=== PATIENT | female | born 1940 | race Caucasian/White ===

== ENCOUNTER 2018-02-18 13:26 | Emergency (ER) | payer OTHER ==
--- OUTSIDE RECORDS SUMMARY | 2018-02-18 13:32 | XMS REPORT | Continuity of Care Document ---
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 CERVICAL Active [facility] RADICULITIS, [address] [place] [address] CERVICAL DISC [facility] Diabetes mellitus Resolved Problem 03/21/2013 PHYLLIS Butler,[facility] GERD - Resolved Problem 03/21/2013 PHYLLIS Gastro-esophageal Luke, reflux disease [facility] HLD - Hyperlipidemia Resolved Problem 03/21/2013 PHYLLIS Butler,[facility] HTN - Hypertension Resolved Problem 03/21/2013 [facility] Neuropathy Resolved Problem 03/21/2013 [facility] Diabetes mellitus Active Problem 02/17[facility]2016 [facility] [place] [facility] 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 [facility] GERD - Active Problem 02/17/2016 OPID Gastro-esophageal Luke reflux disease [facility] HLD - Hyperlipidemia Active Problem 02/17/2016 [facility] [place] HTN - Hypertension Active Problem 02/17/2016 [facility] [place] [facility] Low back pain Active Problem 02/17/2016 [facility] Lumbar radiculopathy Active Problem 02/17/2016 [facility] Lumbar spondylosis Active Problem 02/17/2016 [facility] Neuropathy Active Problem 02/17/2016 [facility] [place] Obesity Active Problem 02/17/2016 [facility] Lumbar stenosis Active Problem 02/17/2016 [facility] Spondylolisthesis of Active Problem 02/17/2016 lumbar region [facility] Disc disorder of Active Problem 02/17/2016 lumbar region [facility] 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 [facility] canal [facility] BRACHIAL NEURITIS Active [facility] CERV DISC DIS W Active [facility] ILLNESS, UNSPECIFIED Active [facility] Medications Medication Details Route Status Patient Ordering Order Source Instructions Provider Date Lipitor 5 mg, 0.5 tab, No Longer Route: PO, Drug Active 2015 [facility] form: TAB, [facility] QTue, Start date: 02/15/16 21:00:00 CDT, Duration: 30 day, Stop date: 03/14/16 21:00:00 CDTNotes: (Same As: Lipitor) Acetaminophen 325 1 tab, PO, Q6H, Active MG / Hydrocodone PRN pain, # 90 2015 [facility] Bitartrate 10 MG tab, 0 [facility] Oral Tablet [[place] Refill(s), ] given to patient morphine 15 mg 15 mg=1 tab, Active oral tablet, PO, Q12H, # 60 2015 [facility] extended release tab, 0 [facility] Refill(s), given to patient bisacodyl 5 mg 5 mg=1 tab, PO, Active oral enteric TID, PRN [address] [place] [address] coated tablet Constipation, 0 [facility] Refill(s) baclofen 10 mg 5 mg=0.5 tab, Active oral tablet PO, TID, PRN as 2015 [facility] needed for [facility] muscle spasm, # 45 tab, 0 Refill(s) MS Contin 15 mg, 1 tab, No Longer Route: PO, Drug Active 2015 [facility] form: ERTAB, [facility] Q12H, Dosing Weight 89.091, kg, Start date: 02/12/16 21:00:00 CDT, Duration: 30 day, Stop date: 03/13/16 9:00:00 CDTNotes: Do not crush (Same as:Oramorph SR, MS Contin) Lipitor 5 mg, 0.5 tab, No Longer Route: PO, Drug Active 2015 [facility] form: TAB, [facility] QFri, Start date: 02/11/16 21:00:00 CDT, Duration: 30 day, Stop date: 03/10/16 21:00:00 CDTNotes: (Same As: Lipitor) Tylenol 650 mg, 2 tab, No Longer Route: PO, Drug Active 2015 [facility] form: TAB, Q6H, [facility] Dosing Weight 89.091, kg, Start date: 02/11/16 18:00:00 CDT, Duration: 10 day, Stop date: 02/21/16 12:00:00 CDTNotes: Do not exceed 4 gm/day. (Same as: Tylenol) Bisacodyl 5 mg, 1 tab, No Longer Route: PO, Drug Active 2015 [facility] form: ECTAB, [facility] TID, Dosing Weight 89.091, kg, PRN Constipation, Start date: 02/11/16 17:47:00 CDT, Duration: 30 day, Stop date: 03/12/16 17:46:00 CDTNotes: (Same As: Dulcolax, Correctol) (Do Not Crush) "Do Not Crush" Docusate 100 mg, 1 cap, No Longer Route: PO, Drug Active 2015 [facility] form: CAP, TID, [facility] Dosing Weight 89.091, kg, Start date: 02/11/16 17:00:00 CDT, Duration: 30 day, Stop date: 03/12/16 13:00:00 CDTNotes: (Same as: Colace) (Do Not Crush) Simethicone 80 mg, 1 tab, No Longer Route: CHEW, Active 2015 [facility] Drug form: [facility] CHEWTAB, QID, Dosing Weight 89.091, kg, PRN Gas, Start date: 02/11/16 16:04:00 CDT, Duration: 30 day, Stop date: 03/12/16 16:03:00 CDTNotes: (Same as: Mylicon) Bisacodyl 10 mg, 1 supp, No Longer Route: OR, Drug Active 2015 [facility] form: SUPP, [facility] Daily, Dosing Weight 89.091, kg, PRN Constipation, Start date: 02/11/16 16:04:00 CDT, Duration: 30 day, Stop date: 03/12/16 16:03:00 CDTNotes: (Same As: Dulcolax, Bisco-Lax) Baclofen 5 mg, 0.5 tab, No Longer Route: PO, Drug [facility] 2015 [facility] form: TAB, TID, [facility] Dosing Weight 89.091, kg, Start date: 02/11/16 9:00:00 CDT, Duration: 30 day, Stop date: 03/11/16 17:00:00 CDTNotes: (Same As: Lioresal) Dilaudid 0.2 mg, 0.1 mL, No Longer Route: IVP, [facility] 2015 [facility] Drug form: INJ, [facility] Q2H, Dosing Weight 89.091, kg, PRN Pain Score 7-10, Start date: 02/10/16 17:54:00 CDT, Duration: 30 day, Stop date: 03/11/16 17:53:00 CDTNotes: (Same as: Dilaudid) Acetaminophen 325 1 tab, Route: No Longer MG / Hydrocodone PO, Drug Form: [facility] 2015 [facility] Bitartrate 5 MG TAB, Dosing [facility] Oral Tablet [[place] Weight 89.091, 5/325] kg, Q4H, PRN Pain Score 1-3, Start date: 02/10/16 17:52:00 CDT, Duration: 30 day, Stop date: 03/11/16 17:51:00 CDTNotes: (Same as: [place] 325/5) Do not exceed 4gm/day of acetaminophen. marta bonnienta, 5 No Longer mg, 1 tab, Drug [facility] 2015 [facility] form: MISC, [facility] Route: PO, Daily, 02/09/16 15:00:00 CDT, Duration: 30 day, Stop date: 03/10/16 9:00:00 CDT Rosuvastatin 2.5 mg, PO, Active calcium 5 MG Oral Bedtime, # 30 2015 [facility] Tablet [Crestor] tab, 0 City Refill(s) Sodium Chloride 25 mL, Route: No Longer 0.9% IV IV, Start date: [facility] 2015 [facility] 02/09/16 [facility] 10:15:00 CDT, Duration: 30 day, Stop date: 03/10/16 10:14:00 CDT, PRN Line Flush BD Normal Saline 10 mL, Route: No Longer Flush IV, Drug Form: [address] INJ, PRN, PRN [facility] Line Flush, Start date: 02/09/16 10:15:00 CDT, Duration: 30 day, Stop date: 03/10/16 10:14:00 CDTNotes: (Same as: BD Posiflush) Spironolactone 25 mg, 1 tab, No Longer Route: PO, Drug Active 2015 [facility] form: TAB, [facility] Daily, Dosing Weight 89.545, kg, Start date: 02/09/16 9:00:00 CDT, Duration: 30 day, Stop date: 03/09/16 9:00:00 CDTNotes: (Same As: Aldactone) irbesartan 300 mg, 2 tab, No Longer Route: PO, Drug Active [address] [place] [address] form: [facility] Daily, Dosing Weight 89.545, kg, Start date: 02/09/16 9:00:00 CDT, Duration: 30 day, Stop date: 03/09/16 9:00:00 CDTNotes: (Same as:Avapro) Tradjenta 5 mg, Route: Inactive PO, Drug form: [address] [place] [address] TAB, Daily, [facility] Dosing Weight 89.545, kg, Start date: 02/09/16 9:00:00 CDT Furosemide 20 MG 20 mg, 1 tab, No Longer Oral Tablet Route: PO, Drug Active [address] [place] [address] form: [facility], [facility] Daily, Dosing Weight 89.545, kg, Start date: 02/09/16 9:00:00 CDT, Duration: 30 day, Stop date: 03/09/16 9:00:00 CDTNotes: (Same as: Lasix) May cause GI upset. Give with food or milk. Vitamin D3 2,000 IntlUnit, No Longer 2 tab, Route: Active 2015 [facility] PO, Drug form: [facility] TAB, Daily, Dosing Weight 89.545, kg, Start date: 02/09/16 9:00:00 CDT, Duration: 30 day, Stop date: 03/09/16 9:00:00 CDTNotes: Same as : Vitamin D3 Amlodipine 10 mg, 2 tab, No Longer Route: PO, Drug [facility] 2015 [facility] form: TAB, [facility] Daily, Dosing Weight 89.545, kg, Start date: 02/09/16 9:00:00 CDT, Duration: 30 day, Stop date: 03/09/16 9:00:00 CDTNotes: (Same as: Norvasc) Miralax 17 gm, 1 pkt, No Longer Route: PO, Drug Active 2015 [facility] form: PWDR, [facility] Daily, Dosing Weight 89.545, kg, Start date: 02/09/16 9:00:00 CDT, Duration: 30 day, Stop date: 03/09/16 9:00:00 CDTNotes: Dissolve in 8 oz of water or juice. (Same as: Miralax) Insulin, Aspart, 1 unit, 0.01 No Longer Human mL, Route: [facility] 2015 [facility] SUB-Q, Drug [facility] form: SOLN, Bedtime, Dosing Weight 89.545, kg, PRN Blood Glucose Results, Start date: 02/09/16 1:52:00 CDT, Duration: 30 day, Stop date: 03/10/16 1:51:00 CDTNotes: Roll in palms of hands gently; Do not shake vigorously. (Same as: NovoLOG) "single patient use only" WASTE: F/P - Black; E - Municipal Trash Bin Stable for 28 days at room temperature. Expires in days from D ate Glucagon 1 mg, Route: No Longer IM, Drug form: [address] PDR/INJ, PRN, [facility] Dosing Weight 89.545, kg, PRN Blood Glucose Results, Start date: 02/09/16 1:52:00 CDT, Duration: 30 day, Stop date: 03/10/16 1:51:00 CDT Dextrose 50% 25 gm, 50 mL, No Longer Syringe Route: IVP, [address] Drug Form: INJ, [facility] Dosing Weight 89.545, kg, PRN, PRN Blood Glucose Results, Start date: 02/09/16 1:52:00 CDT, Duration: 30 day, Stop date: 03/10/16 1:51:00 CDT Crestor Route: PO, Drug No Longer form: TAB, Active 2015 [facility] Bedtime, Dosing [facility] Weight 89.545, kg, Start date: 02/08/16 21:00:00 CDT, Duration: 30 day, Stop date: 03/08/16 21:00:00 CDT Insulin Glargine 40 unit, 0.4 No Longer 100 UNT/ML mL, Route: Active 2015 [facility] Injectable SUB-Q, Drug [facility] Solution [Lantus] form: INJ, Bedtime, Dosing Weight 89.545, kg, Start date: 02/08/16 21:00:00 CDT, Duration: 30 day, Stop date: 03/08/16 21:00:00 CDTNotes: Same as Lantus Solostar PEN Do not hold insulin without contacting prescriber "single patient use only" WASTE: F/P - Black; E - [employer] Trash Bin Stable for 28 days at room temperature. Expires in days from D ate carvedilol 12.5 mg, 1 tab, No Longer Route: PO, Drug Active 2015 [facility] form: TAB, [place] Q12H, Dosing Weight 89.545, kg, Start date: 02/08/16 21:00:00 CDT, Duration: 30 day, Stop date: 03/09/16 9:00:00 CDTNotes: Give with food. (Same As: Coreg) Docusate Sodium 100 mg=1 cap, Active 100 MG Oral PO, BID, 0 2015 [facility] Capsule [Colace] Refill(s) [facility] Linagliptin 5 MG 5 mg=1 tab, PO, No Longer Oral Tablet Daily, 0 Active 2015 [facility] [Tradjenta] Refill(s) [facility] 3 ML Insulin 50 units, Active Glargine 100 SUB-Q, Bedtime, 2015 [facility] UNT/ML Prefilled 0 Refill(s) [facility] Syringe [Lantus] glimepiride 4 mg, PO, Active Daily, 0 2015 [facility] Refill(s) [facility] Clonidine 0.1 mg=1 tab, No Longer Hydrochloride 0.1 PO, PRN Active 2015 [facility] MG Oral Tablet Hypertension, 0 [facility] Refill(s) Ancef + sodium 1 gm, Route: No Longer chloride 0.9% INJ IVPB, Q8H, Active 2015 [facility] 100 mL Dosing Weight [facility] 89.545, kg, Start date: 02/08/16 18:00:00 CDT, Duration: 30 day, Stop date: 03/09/16 10:00:00 CDTNotes: (Same As: Dav Siufzol) MEDICATION WASTE Product Size: 1000 mg Product Wasted: ___ mg Docusate Sodium 100 mg, 1 cap, No Longer 100 MG Oral Route: PO, Drug Active 2015 [facility] Capsule [Colace] form: CAP, BID, [facility] Dosing Weight 89.545, kg, Start date: 02/08/16 17:00:00 CDT, Duration: 30 day, Stop date: 03/09/16 9:00:00 CDTNotes: (Same as: Colace) (Do Not Crush) Ofirmev 1,000 mg, Inactive Route: IV, 2015 [facility] ONCE, Dosing [facility] Weight 89, kg, Start date: 02/08/16 14:25:00 CDT, Stop date: 02/08/16 14:25:00 CDT Ondansetron 4 mg, 2 mL, Inactive Route: IVP2015 [facility] Drug form: INJ, [place] ONCE, Dosing Weight 89.545, kg, PRN Nausea & Vomiting, Start date: 02/08/16 13:22:00 CDTNotes: (Same as: Zofran) MEDICATION WASTE Product Size: 4 mg Product Wasted: ___ mg Flumazenil 0.2 mg, 2 mL, Inactive Route: IVP, 2015 [facility] Drug form: INJ, [place] PRN, Dosing Weight 89.545, kg, PRN Benzodiazepine Reversal, Initial dose, Start date: 02/08/16 13:22:00 CDT, Duration: 30 day, Stop date: 03/09/16 13:21:00 CDTNotes: (Same as: Romazicon) Naloxone 0.4 mg, 1 mL, Inactive Route: IVP, 2015 [facility] Drug form: INJ, [place] Q2MIN, Dosing Weight 89.545, kg, PRN Narcotic Reversal, Start date: 02/08/16 13:22:00 CDT, Duration: 8 doses or times, Stop date: Limited # of timesNotes: Same as Narcan Morphine 2 mg, 0.2 mL, Inactive Route: IVP, 2015 [facility] Drug form: INJ, [place] Q5Min, Dosing Weight 89.545, kg, PRN Pain Score 4-6, Start date: 02/08/16 13:22:00 CDT, Duration: 5 doses or times, Stop date: Limited # of timesNotes: (Same as:MORPhine Sulfate) Sodium Chloride 1,000 mL, Rate: Inactive 0.154 MEQ/ML 125 ml/hr, 2015 [facility] Injectable Infuse over: 8 City Solution hr, Route: IV, Dosing Weight 89.545 kg, Total Volume: 1,000, Start date: 02/08/16 13:22:00 CDT, Duration: 30 day, Stop date: 03/09/16 13:21:00 CDT Morphine 30 mg, 30 mL, No Longer Route: IV, Active 2015 [facility] Initial Loading [facility] Dose: 2 mg, BAR CAPTAIN Dose: 1 mg, BAR CAPTAIN Lockout: 10 minutes, Continuous Basal Rate: 0 mg, 4 Hour Limit (In MG): 30, Drug Form: INJ, Continuous, Start date: 02/08/16 13:00:00 CDT, Duration: 30 day, Stop date: 03/09/16...Note s: Dose: Delay: Basal rate: 4hr limit: (Same as:Abby) Naloxone 0.04 mg, 0.1 No Longer mL, Route: IVP, Active 2015 [facility] Drug form: INJ, [place] Q2MIN, Dosing Weight 89.545, kg, PRN Narcotic Reversal, Start date: 02/08/16 12:53:00 CDT, Duration: 30 day, Stop date: 03/09/16 12:52:00 CDTNotes: Same as Narcan Acetaminophen 325 1 tab, Route: No Longer MG / Hydrocodone PO, Drug Form: [address] Bitartrate 10 MG TAB, Dosing [facility] Oral Tablet [[place] Weight 89.545, 10/325] kg, Q4H, PRN Pain Score 4-6, Start date: 02/08/16 12:53:00 CDT, Duration: 30 day, Stop date: 03/09/16 12:52:00 CDTNotes: Do not exceed 4gm/day of acetaminophen. (Same as: [place] 325/10) Zofran 4 mg, 2 mL, No Longer Route: IV, Drug [address] form: INJ, Q6H, [facility] Dosing Weight 89.545, kg, PRN Nausea, Start date: 02/08/16 12:53:00 CDT, Duration: 30 day, Stop date: 03/09/16 12:52:00 CDTNotes: (Same as: Zofran) MEDICATION WASTE Product Size: 4 mg Product Wasted: ___ mg Robaxin 750 mg, 7.5 mL, No Longer Route: IV, Q6H, [address] Dosing Weight [facility] 89.545, kg, PRN Muscle Spasms, Start date: 02/08/16 12:52:00 CDT, Duration: 30 day, Stop date: 03/09/16 12:51:00 CDTNotes: (Same as:Robaxin) Lactated Ringers 1,000 mL, Rate: No Longer 1,000 mL 75 ml/hr, [address] Infuse over: [facility] 13.3 hr, Route: IV, Dosing Weight 89.545 kg, Total Volume: 1,000, Start date: 02/08/16 12:52:00 CDT, Duration: 30 day, Stop date: 03/09/16 12:51:00 CDT Flexeril 10 mg, 1 tab, No Longer Route: PO, Drug [address] form: TAB, TID, [facility] Dosing Weight 89.545, kg, PRN Spasm, Start date: 02/08/16 12:52:00 CDT, Duration: 30 day, Stop date: 03/09/16 12:51:00 CDTNotes: (Same As: Flexeril) Diphenhydramine 25 mg, 1 cap, No Longer Route: PO, Drug [facility] 2015 [facility] form: CAP, TID, [facility] Dosing Weight 89.545, kg, PRN Itching, Start date: 02/08/16 12:52:00 CDT, Duration: 30 day, Stop date: 03/09/16 12:51:00 CDTNotes: (Same as: Benadryl) phenol 1 spray, Route: No Longer TOP, Q2H, Drug Active 2015 [facility] form: SPRY, PRN [facility] Sore Throat, Start date: 02/08/16 12:52:00 CDT, Duration: 30 day, Stop date: 03/09/16 12:51:00 CDTNotes: Chloraseptic [place] (Same as: Chloraseptic, Sore Throat [place]) WASTE: F/P - Black; E - Municipal Trash Bin ceFAZolin 2 gm, 100 mL, No Longer Route: IVPB, [facility] 2015 [facility] Drug form: INJ, [facility] ONCALL, Start date: 02/07/16 22:00:00 CDT, Duration: 22 hr, Stop date: 02/08/16 19:59:00 CDTNotes: Same as: Anc carvedilol 12.5 mg 12.5 mg=1 tab, Active oral tablet PO, Q12H, 0 2015 [facility] Refill(s) [facility] Acetaminophen 325 1 tab, Route: No Longer MG / Hydrocodone PO, Drug Form: [facility] 2015 [facility] Bitartrate 7.5 MG TAB, Dosing [facility] Oral Tablet [[place] Weight 97.983, 7.5/325] kg, Q4H, PRN Pain Score 4-6, Start date: 01/18/16 9:32:00 CDT, Duration: 30 day, Stop date: 02/17/16 9:31:00 CDTNotes: Same as [place] 325-7.5mg Do not exceed 4gm/day of acetaminophen. sodium phosphate + 15 mmol, 5 mL, No Longer sodium chloride Route: IVPB, [facility] 2015 [facility] 0.9% INJ 250 mL PRN, Dosing [facility] Weight 97.983, kg, PRN Abnormal Lab Result, Start date: 01/17/16 16:42:00 CDT, Stop date: 02/16/16 16:41:00 CDT heparin sodium, 5,000 unit, 1 No Longer porcine 2500 mL, Route: Active 2015 [facility] UNT/ML Injectable SUB-Q, Drug [facility] Solution form: INJ, Q12H, Dosing Weight 97.983, kg, Start date: 01/15/16 21:00:00 CDT, Duration: 30 day, Stop date: 02/14/16 9:00:00 CDTNotes: porcine heparin gabapentin 300 MG 300 mg, 1 cap, No Longer Oral Capsule Route: PO, Drug Active 2015 [facility] form: CAP, TID, [facility] Dosing Weight 97.983, kg, PRN Pain Score 1-5, Start date: 01/15/16 19:22:00 CDT, Duration: 30 day, Stop date: 02/14/16 19:21:00 CDTNotes: (Same as: Neurontin) Insulin, Aspart, 7 unit, 0.07 No Longer Human mL, Route: Active 2015 [facility] SUB-Q, Drug [facility] form: SOLN, TID-Before Meals, Dosing Weight 97.983, kg, Start date: 01/14/16 16:30:00 CDT, Stop date: 02/13/16 11:30:00 CDTNotes: Roll in palms of hands gently; Do not shake vigorously. (Same as: NovoLOG) "single patient use only" WASTE: F/P - Black; E - Municipal Trash Bin Stable for 28 days at room temperature. Expires in days from D ate Hydralazine 5 mg, 0.25 mL, No Longer Route: IV, Drug Active [address] [place] [address] form: INJ, Q6H, [facility] Dosing Weight 97.983, kg, PRN Other -See Comment, Start date: 01/14/16 14:44:00 CDT, Duration: 30 day, Stop date: 02/13/16 14:43:00 CDT, SBP>170Notes: (Same as: Apresoline) Push over 5 minutes Ativan 1 mg, 0.5 mL, Inactive Route: IVP, [address] [place] [address] Drug form: INJ, [place] ONCE, Dosing Weight 97.983, kg, PRN Procedure, prior to MRI, Start date: 01/13/16 15:06:00 CDTNotes: (Same as: Ativan) Acetaminophen 325 1 tab, Route: No Longer MG / Hydrocodone PO, Drug Form: Active 2015 [facility] Bitartrate 10 MG TAB, Dosing [facility] Oral Tablet [[place] Weight 97.983, 10/325] kg, Q4H, Start date: 01/13/16 15:05:00 CDT, Stop date: 02/12/16 16:00:00 CDT Miralax 17 gm, 1 pkt, No Longer Route: PO, Drug Active 2015 [facility] form: PWDR, [facility] Daily, Dosing Weight 97.983, kg, PRN Constipation, Start date: 01/13/16 9:11:00 CDT, Duration: 30 day, Stop date: 02/12/16 9:10:00 CDTNotes: Dissolve in 8 oz of water or juice. (Same as: Miralax) Lorazepam 0.5 mg, Route: Inactive IVP, Drug form: [address] [place] [address] INJ, ONCE, [facility] Dosing Weight 97.983, kg, PRN Anxiety, Priority: NOW, Start date: 01/12/16 10:44:00 CDT Tradjenta 5 mg, Route: Inactive PO, Drug form: 2015 [facility] TAB, Daily, [facility] Dosing Weight 97.983, kg, Start date: 01/12/16 9:00:00 CDT irbesartan 300 mg, 2 tab, No Longer Route: PO, Drug Active [address] [place] [address] form: TAB, [place] Daily, Dosing Weight 97.983, kg, Start date: 01/12/16 9:00:00 CDT, Duration: 30 day, Stop date: 02/10/16 9:00:00 CDTNotes: (Same as:Avapro) Furosemide 20 MG 20 mg, 1 tab, No Longer Oral Tablet Route: PO, Drug Active [address] [place] [address] form: TAB, [place] Daily, Dosing Weight 97.983, kg, Start date: 01/12/16 9:00:00 CDT, Duration: 30 day, Stop date: 02/10/16 9:00:00 CDTNotes: (Same as: Lasix) May cause GI upset. Give with food or milk. glimepiride 8 mg, 4 tab, No Longer Route: PO, Drug Active 2015 [facility] form: TAB, [facility] Daily, Dosing Weight 97.983, kg, Start date: 01/12/16 9:00:00 CDT, Duration: 30 day, Stop date: 02/10/16 9:00:00 CDTNotes: (Same as: Amaryl) Tradjenta 5 mg Tradjenta 5 mg No Longer (Patient's own (Patient's own Active 2015 [facility] medicine) medicine), 1 City tab, Drug form: MISC, Route: PO, Daily, 01/12/16 9:00:00 CDT, Duration: 30 day, Stop date: 02/10/16 9:00:00 CDT Aspirin 81 MG 81 mg, 1 tab, No Longer Enteric Coated Route: PO, Drug Active 2015 [facility] Tablet form: ECTAB, [facility] Daily, Dosing Weight 97.983, kg, Start date: 01/12/16 9:00:00 CDT, Duration: 30 day, Stop date: 02/10/16 9:00:00 CDTNotes: Do not crush or chew. (Same As: Ecotrin) Amlodipine 10 mg, 2 tab, No Longer Route: PO, Drug Active 2015 [facility] form: TAB, [facility] Daily, Dosing Weight 97.983, kg, Start date: 01/12/16 9:00:00 CDT, Duration: 30 day, Stop date: 02/10/16 9:00:00 CDTNotes: (Same as: Norvasc) Docusate 100 mg, 1 cap, No Longer Route: PO, Drug Active 2015 [facility] form: CAP, BID, [facility] Dosing Weight 97.983, kg, Start date: 01/12/16 9:00:00 CDT, Duration: 30 day, Stop date: 02/10/16 17:00:00 CDTNotes: (Same as: Colace) (Do Not Crush) Spironolactone 25 mg, 1 tab, No Longer Route: PO, Drug Active 2015 [facility] form: TAB, [place] Daily, Dosing Weight 97.983, kg, Start date: 01/12/16 9:00:00 CDT, Duration: 30 day, Stop date: 02/10/16 9:00:00 CDTNotes: (Same As: Aldactone) Ativan 1 mg, 0.5 mL, Inactive Route: IVP, 2015 [facility] Drug form: INJ, [place] ONCE, Dosing Weight 97.983, kg, PRN Procedure, Start date: 01/12/16 8:54:00 CDTNotes: (Same as: Ativan) Sodium Chloride 25 mL, Route: No Longer 0.9% IV IV, Start date: Active 2015 [facility] 01/12/16 [facility] 8:19:00 CDT, Duration: 30 day, Stop date: 02/11/16 8:18:00 CDT, PRN Line Flush BD Normal Saline 10 mL, Route: No Longer Flush IV, Drug Form: [facility] 2015 [facility] INJ, PRN, PRN [facility] Line Flush, Start date: 01/12/16 8:19:00 CDT, Duration: 30 day, Stop date: 02/11/16 8:18:00 CDTNotes: (Same as: BD Posiflush) Insulin, Aspart, 4 unit, 0.04 No Longer Human mL, Route: Active 2015 [facility] SUB-Q, Drug [facility] form: SOLN, Bedtime, Dosing Weight 97.983, kg, PRN Blood Glucose Results, Start date: 01/11/16 22:38:00 CDT, Duration: 30 day, Stop date: 02/10/16 22:37:00 CDTNotes: Roll in palms of hands gently; Do not shake vigorously. (Same as: NovoLOG) "single patient use only" WASTE: F/P - Black; E - Municipal Trash Bin Stable for 28 days at room temperature. Expires in days from D ate Dextrose 50% 12.5 gm, 25 mL, No Longer Syringe Route: IVP, Active 2015 [facility] Drug Form: INJ, [facility] Dosing Weight 97.983, kg, PRN, PRN Blood Glucose Results, Start date: 01/11/16 22:38:00 CDT, Duration: 30 day, Stop date: 02/10/16 22:37:00 CDT Glucagon 1 mg, Route: No Longer IM, Drug form: [facility] 2015 [facility] PDR/INJ, PRN, [facility] Dosing Weight 97.983, kg, PRN Blood Glucose Results, Start date: 01/11/16 22:38:00 CDT, Duration: 30 day, Stop date: 02/10/16 22:37:00 CDT Lipitor 10 mg, 1 tab, No Longer Route: PO, Drug Active 2015 [facility] form: TAB, [facility] Bedtime, Start date: 01/11/16 21:38:00 CDT, Duration: 30 day, Stop date: 02/10/16 21:00:00 CDTNotes: (Same As: Lipitor) Lantus 45 unit, 0.45 No Longer mL, Route: Active 2015 [facility] SUB-Q, Drug [facility] form: INJ, Bedtime, Dosing Weight 97.983, kg, Start date: 01/11/16 21:00:00 CDT, Stop date: 02/09/16 21:00:00 CDTNotes: Same as Lantus Solostar PEN Do not hold insulin without contacting prescriber "single patient use only" WASTE: F/P - Black; E - Municipal Trash Bin Stable for 28 days at room temperature. Expires in days from D ate carvedilol 12.5 mg, 1 tab, No Longer Route: PO, Drug Active 2015 [facility] form: TAB, [facility] Q12H, Dosing Weight 97.983, kg, Start date: 01/11/16 21:00:00 CDT, Stop date: 02/10/16 9:00:00 CDTNotes: Give with food. (Same As: Coreg) Crestor Route: PO, Drug Inactive form: TAB, 2015 [facility] Bedtime, Dosing City Weight 97.983, kg, Start date: 01/11/16 21:00:00 CDT, Duration: 30 day, Stop date: 02/09/16 21:00:00 CDT Acetaminophen 325 1 tab, Route: No Longer MG / Hydrocodone PO, Drug Form: Active [address] [place] [address] Bitartrate 10 MG TAB, Dosing [facility] Oral Tablet [[place] Weight 97.983, 10/325] kg, Q6H, Start date: 01/11/16 18:00:00 CDT, Stop date: 02/10/16 12:00:00 CDTNotes: Do not exceed 4gm/day of acetaminophen. (Same as: [place] 325/10) Enoxaparin 40 mg, 0.4 mL, No Longer Route: SUB-Q, [address] Drug form: INJ, [facility] [id number], Dosing Weight 97.983, kg, Start date: 01/11/16 18:00:00 CDT, Duration: 30 day, Stop date: 02/09/16 18:00:00 CDTNotes: (Same as: Lovenox) Clonidine 0.1 mg, 1 tab, No Longer Hydrochloride 0.1 Route: PO, Drug Active [address] [place] [address] MG Oral Tablet form: TAB, QID, [facility] Dosing Weight 97.983, kg, PRN Hypertension, sbp>170, Start date: 01/11/16 17:56:00 CDT, Duration: 30 day, Stop date: 02/10/16 17:55:00 CDTNotes: (Same As: Catapres) Sodium Chloride 1,000 mL, Rate: No Longer 0.154 MEQ/ML 45 ml/hr, Active 2015 [facility] Injectable Infuse over: [facility] Solution 22.2 hr, Route: IV, Dosing Weight 97.983 kg, Total Volume: 1,000, Start date: 01/11/16 17:53:00 CDT, Duration: 30 day, Stop date: 02/10/16 17:52:00 CDT Saline Flush 0.9% 10 ml, Route: No Longer IVP, Drug Form: Ori [address] [place] [address] INJ, Dosing [facility] Weight 97.983, kg, PRN, PRN Line Flush, Start date: 01/11/16 17:53:00 CDT, Duration: 30 day, Stop date: 02/10/16 17:52:00 CDTNotes: (Same as: BD Posiflush) Morphine 2 mg, 1 mL, No Longer Route: IVP, Active 2015 [facility] Drug form: INJ, City Q4H, Dosing Weight 97.983, kg, PRN Pain Score 7-10, Start date: 01/11/16 17:53:00 CDT, Duration: 30 day, Stop date: 02/10/16 17:52:00 CDTNotes: (Same as:MORPhine Sulfate) Ondansetron 4 mg, 2 mL, No Longer Route: IVP, Active 2015 [facility] Drug form: INJ, City Q6H, Dosing Weight 97.983, kg, PRN Nausea & Vomiting, Start date: 01/11/16 17:53:00 CDT, Duration: 30 day, Stop date: 02/10/16 17:52:00 CDTNotes: (Same as: Rachel) MEDICATION WASTE Product Size: 4 mg Product Wasted: ___ mg Acetaminophen 650 mg, Route: Inactive PO, Drug form: 2015 [facility] TAB, Q4H, [facility] Dosing Weight 97.983, kg, PRN Pain 1-3/Temp > 100.4 F, Start date: 01/11/16 17:53:00 CDT, Duration: 30 day, Stop date: 02/10/16 17:52:00 CDT irbesartan 300 mg 300 mg=1 tab, Active oral tablet PO, Daily, # 30 2015 [facility] tab, 0 [facility] Refill(s) Co Q-10 100 mg 200 mg=2 cap, Active oral capsule PO, Daily, 0 2015 [facility] Refill(s) [facility] Aspirin 81 MG 81 mg=1 tab, Active Enteric Coated PO, Daily, # 90 2015 [facility] Tablet tab, 3 City Refill(s) Vitamin D3 2,000 IntlUnit, Active PO, Daily, 0 2015 [facility] Refill(s) [facility] Rosuvastatin See Active calcium 5 MG Oral Instructions, 1 2015 [facility] Tablet [Crestor] tab PO Bedtime [facility] tuesdays and fridays, 0 Refill(s) spironolactone 25 25 mg=1 tab, Active mg oral tablet PO, Daily, # 30 2015 [facility] tab, 3 City Refill(s) Docusate Sodium 300 mg=3 cap, Active 100 MG Oral PO, Daily, 0 2015 [facility] Capsule [Colace] Refill(s) [facility] Furosemide 20 MG 20 mg=1 tab, Active Oral Tablet PO, Daily, # 30 2015 [facility] tab, 0 City Refill(s) Linagliptin 5 MG 5 mg=1 tab, PO, Active Oral Tablet Daily, # 2015 [facility] [Tradjenta] tab, 3 [facility] Refill(s) Acetaminophen 325 2 tabs, PO, Active MG / Hydrocodone Q6H, 0 2015 [facility] Bitartrate 10 MG Refill(s) [facility] Oral Tablet [[place] 10/325] Amlodipine 10 mg, PO, Active Daily, 0 2015 [facility] Refill(s) [facility] Pepcid 20 mg oral 20 mg, 1 tab, PO Active [facility] [place] tablet PO, BID, 60 2012 Medical tab, Center Substitution Allowed [place] 10/325 oral 1-2 tab, PO, PO Active [facility] 10/06/ [facility] [place] tablet Q4-6H, PRN, 90 2012 Medical tab, Pain, Center Substitution Allowed, Maintenance Flexeril 10 mg 10 mg, 1 tab, PO Active [facility] [place] oral tablet PO, TID, PRN, 2012 Medical 30 tab, for Center spasm, Substitution Allowed, TAB Medrol Dosepak 4 As directed on PO Active [facility] 10/06/ [place] mg Tablet package 2012 Medical instructions, Vern[place] PO, Daily, Take with or without food, 1 Pack, Substitution AllowedTake with or without food Colace 100 mg oral 100 mg, 1 cap, PO Active [facility] 10/06/ [place] capsule PO, BID, PRN, 2012 Medical 20 cap, Center Constipation, Substitution Allowed, CAP diphenhydrAMINE 25 25 mg, 1 cap, PO No Longer [facility] [place] mg oral tablet, Route: PO, Drug Active 2012 Medical disintegrating form: CAP, Q8H, Center Dosing Weight 91.818, kg, PRN Anxiety, Start date: 10/05/12 20:00:00, Duration: 30 day, Stop date: 11/04/12 19:59:00 Lantus 10 unit, 0.1 SUB-Q No Longer [facility] mL, Route: Active 2012 Medical SUB-Q, Drug Center form: INJ, ONCE, Dosing Weight 91.818, kg, Start date: 10/05/12 18:46:00, Stop date: 10/05/12 18:46:00 insulin aspart 3 unit, 0.03 SUB-Q No Longer [facility] mL, Route: Active 2012 Medical SUB-Q, Drug Center form: SOLN, TID-Before Meals, Dosing Weight 91.818, kg, PRN Blood Glucose Results, Start date: 10/05/12 17:13:00, Duration: 30 day, Stop date: 11/04/12 17:12:00 glucagon 1 mg, Route: IM No Longer [facility] 10/05[facility] IM, Drug form: Active 2012 Medical PDR/INJ, PRN, Center Dosing Weight 91.818, kg, PRN Blood Glucose Results, Start date: 10/05/12 17:13:00, Duration: 30 day, Stop date: 11/04/12 17:12:00 Dextrose 50% 12.5 gm, 25 mL, IVP No Longer [facility] 10[facility]05[facility] Syringe Route: IVP, Active 2012 Medical Drug Form: INJ, Center Dosing Weight 91.818, kg, PRN, PRN Blood Glucose Results, Start date: 10/05/12 17:13:00, Duration: 30 day, Stop date: 11/04/12 17:12:00 insulin aspart 5 unit, 0.05 SUB-Q No Longer [facility] 10/05[facility] mL, Route: Active 2012 Medical SUB-Q, Drug Center form: SOLN, TID-Before Meals, Dosing Weight 91.818, kg, Start date: 10/05/12 11:30:00, Duration: 30 day, Stop date: 11/04/12 7:30:00 Ativan 1 mg, 1 tab, PO No Longer [facility] Route: PO, Drug Active 2012 Medical form: TAB, Center Bedtime, Dosing Weight 91.818, kg, PRN Insomnia, Start date: 10/05/12 10:38:00, Duration: 30 day, Stop date: 11/04/12 10:37:00 Valium 5 mg, 1 tab, PO No Longer [facility] Route: PO, Drug Active 2012 Medical form: TAB, Center ONCE, Dosing Weight 91.818, kg, PRN Anxiety, Start date: 10/05/12 4:41:00, Stop date: 11/04/12 4:40:00 dexamethasone 4 mg, 1 mL, IVP No Longer [facility] Route: IVP, Active 2012 Medical Drug form: INJ, Center Q6H, Dosing Weight 91.818, kg, Start date: 10/05/12 0:00:00, Duration: 30 day, Stop date: 11/03/12 18:00:00 heparin 5,000 unit, 1 SUB-Q No Longer [facility] mL, Route: Active 2012 Medical SUB-Q, Drug Center form: INJ, Q8H, Dosing Weight 91.818, kg, Start date: 10/05/12 0:00:00, Duration: 30 day, Stop date: 11/03/12 16:00:00 famotidine 20 mg, 1 tab, PO No Longer [facility] Route: PO, Drug Active 2012 Medical form: TAB, BID, Center Dosing Weight 91.818, kg, Start date: 10/04/12 21:00:00, Duration: 30 day, Stop date: 11/03/12 9:00:00 Insulin regular 12 unit, 0.12 SUB-Q No Longer [facility] mL, Route: Active 2012 Medical SUB-Q, Drug Center form: SOLN, TID-Before Meals, Dosing Weight 91.818, kg, PRN Blood Glucose Results, Start date: 10/04/12 19:54:00, Duration: 30 day, Stop date: 11/03/12 19:53:00 glucagon 1 mg, Route: IM No Longer [facility] [place] IM, Drug form: Active 2012 Medical PDR/INJ, PRN, Center Dosing Weight 91.818, kg, PRN Blood Glucose Results, Start date: 10/04/12 19:54:00, Duration: 30 day, Stop date: 11/03/12 19:53:00 Dextrose 50% 25 gm, 50 mL, IVP No Longer [facility] Syringe Route: IVP, Active 2012 Medical Drug Form: INJ, Center Dosing Weight 91.818, kg, PRN, PRN Blood Glucose Results, Start date: 10/04/12 19:54:00, Duration: 30 day, Stop date: 11/03/12 19:53:00 dexamethasone + 10 mg, 1 mL, IVP No Longer [facility] Sodium Chloride Route: IVP, Active 2012 Medical 0.9% IV 50 mL Drug form: INJ, Center ONCE, Dosing Weight 91.818, kg, Start date: 10/04/12 19:14:00, Stop date: 10/04/12 19:14:00 magnesium sulfate 2 gm, 50 mL, IVPB No Longer [facility] Route: IVPB, Active 2012 Medical Drug form: INJ, Center Q2H, Dosing Weight 91.818, kg, Total dose=4 gm, Start date: 10/04/12 16:00:00, Duration: 2 doses or times, Stop date: 10/04/12 18:00:00 Ativan 1 mg, 0.5 mL, IVP No Longer [facility] Route: IVP, Active 2012 Medical Drug form: INJ, Center ONCE, Dosing Weight 91.818, kg, PRN Anxiety, Start date: 10/04/12 11:52:00 acetaminophen-hydr 1 tab, Route: PO No Longer [facility] ocodone 325 mg-10 PO, Drug Form: Active 2012 Medical mg oral tablet TAB, Dosing Center Weight 91.818, kg, Q4H, PRN Pain Score 4-6, Start date: 10/04/12 11:52:00, Duration: 30 day, Stop date: 11/03/12 11:51:00 hydrochlorothiazid 25 mg, Route: PO No Longer [facility] [place] e PO, Drug form: Active 2012 Medical TAB, Daily, Center Dosing Weight 91.818, kg, Start date: 10/04/12 9:00:00, Duration: 30 day, Stop date: 11/02/12 9:00:00 Januvia 100 mg, 1 tab, PO No Longer [place] Route: PO, Drug Active 2012 Medical form: TAB, Center Daily, Dosing Weight 91.818, kg, Start date: 10/04/12 9:00:00, Duration: 30 day, Stop date: 11/02/12 9:00:00 amLODipine 10 mg, 1 tab, PO No Longer [place] 10/[facility] Route: PO, Drug Active 2012 Medical form: TAB, Center Daily, Dosing Weight 91.818, kg, Start date: 10/04/12 9:00:00, Duration: 30 day, Stop date: 11/02/12 9:00:00 Lantus 30 unit, 0.3 SUB-Q No Longer [facility] mL, Route: Active 2012 Medical SUB-Q, Drug Center form: INJ, Daily, Dosing Weight 91.818, kg, Start date: 10/04/12 9:00:00, Stop date: 11/02/12 9:00:00 polyethylene 17 gm, 1 pkt, PO No Longer [place] 10/04[facility] glycol 3350 Route: PO, Drug Active 2012 Medical form: PWDR, Center Daily, Dosing Weight 91.818, kg, Start date: 10/04/12 9:00:00, Duration: 30 day, Stop date: 11/02/12 9:00:00 Zofran 4 mg oral 4 mg, 1 tab, PO Active [place] 10/04[facility] tablet PO, Q8H, 30 2012 Medical tab, Center Substitution Allowed docusate sodium 100 mg, 1 cap, PO Active [place] 10/04[facility] [place] 100 mg oral PO, Q12H, PRN, 2012 Medical capsule 20 cap, as Center needed for constipation, Substitution Allowed, CAP tramadol 50 mg 1 - 2 tab, PO, PO Active [place] [address] oral tablet Q6H, PRN, 112 2012 Medical tab, Pain, Center Substitution Allowed, TAB cyclobenzaprine 10 10 mg, 1 tab, PO Active [place] [address] [place] mg oral tablet PO, TID, PRN, 2013 Medical 42 tab, Spasm, Center Substitution Allowed, TAB olmesartan 40 mg 40 mg, 1 tab, PO Active [place] [address] oral tablet PO, Daily, 2012 Medical tab, Center Substitution Allowed, TAB Dilaudid 0.3 mg, 0.15 IV No Longer [place] [facility] mL, Route: IV, Active 2012 Medical Drug form: INJ, Center Q3H, Dosing Weight 91.818, kg, PRN Pain Score 7-10, Start date: 10/04/12 7:57:00, Duration: 30 day, Stop date: 11/03/12 7:56:00 Benadryl 25 mg, 0.5 mL, IVP No Longer [facility] Route: IVP, Active 2012 Medical Drug form: INJ, Center ONCE, Dosing Weight 91.818, kg, PRN Insomnia, Start date: 10/04/12 3:22:00 labetalol 10 mg, 2 mL, IVP No Longer [facility] Route: IVP, Active 2012 Medical Drug form: INJ, Center Q15Min, Dosing Weight 91.818, kg, PRN Hypertension, Start date: 10/04/12 3:05:00, Duration: 30 day, Stop date: 11/03/12 3:04:00 hydrALAZINE 10 mg, 0.5 mL, IV No Longer [place] [facility] Route: IV, Drug Active 2012 Medical form: INJ, Q6H, Center Dosing Weight 91.818, kg, PRN Elevated BP, Start date: 10/04/12 0:16:00, Duration: 30 day, Stop date: 11/03/12 0:15:00 clonidine 0.1 mg 0.1 mg, 1 tab, PO No Longer [facility] oral tablet Route: PO, Drug Active 2012 Medical form: TAB, QID, Center Dosing Weight 91.818, kg, Start date: 10/04/12 0:00:00, Duration: 30 day, Stop date: 11/02/12 18:00:00 carvedilol 12.5 mg, 1 tab, PO No Longer [facility] Route: PO, Drug Active 2012 Medical form: TAB, Center Q12H, Dosing Weight 91.818, kg, Start date: 10/03/12 21:00:00, Stop date: 11/02/12 9:00:00 Saline Flush 0.9% 5 ml, Route: IVP No Longer [place] [facility] IVP, Drug Form: Active 2012 Medical INJ, Dosing Center Weight 91.818, kg, Q12H, Start date: 10/03/12 21:00:00, Duration: 30 day, Stop date: 11/02/12 9:00:00 docusate 100 mg, 1 cap, PO No Longer [place] [facility] Route: PO, Drug Active 2012 Medical form: CAP, Center Q12H, Dosing Weight 91.818, kg, Start date: 10/03/12 21:00:00, Duration: 30 day, Stop date: 11/02/12 9:00:00 senna 8.6 mg, 1 tab, PO No Longer [facility] Route: PO, Drug Active 2012 Medical Form: TAB, Center Dosing Weight 91.818, kg, Q12H, Start date: 10/03/12 21:00:00, Duration: 30 day, Stop date: 11/02/12 9:00:00 Ancef + Sodium 2 gm, Route: IVPB No Longer [place] [facility] Chloride 0.9% IV IVPB, Drug Active 2012 Medical 100 mL form: PDR/INJ, Center [id number], Dosing Weight 91.818, kg, Start date: 10/03/12 20:00:00, Duration: 1 day, Stop date: 10/04/12 12:00:00 tramadol 50 mg, 1 tab, PO No Longer [facility] Route: PO, Drug Active 2012 Medical form: TAB, Q4H, Center Dosing Weight 91.818, kg, PRN Pain Score 4-6, Start date: 10/03/12 18:56:00, Stop date: 11/02/12 18:55:00 Flexeril 10 mg, 1 tab, PO No Longer [place] [facility] Route: PO, Drug Active 2012 Medical form: TAB, TID, Center Dosing Weight 91.818, kg, PRN Spasm, Start date: 10/03/12 18:54:00, Duration: 30 day, Stop date: 11/02/12 18:53:00 Dextrose 50% 12.5 gm, 25 mL, IVP No Longer [facility] Syringe Route: IVP, Active 2012 Medical Drug Form: INJ, Center Dosing Weight 91.818, kg, PRN, PRN Abnormal Lab Result, Start date: 10/03/12 18:18:00, Duration: 30 day, Stop date: 11/02/12 18:17:00 insulin regular 5 unit, 0.05 SUB-Q No Longer [facility] 100 units/mL human mL, Route: Active 2012 Medical recombinant SUB-Q, Drug Center form: SOLN, PRN, Dosing Weight 91.818, kg, PRN Abnormal Lab Result, Start date: 10/03/12 18:18:00, Duration: 30 day, Stop date: 11/02/12 18:17:00 hydrALAZINE 20 mg, 1 mL, IVP No Longer [place] 10/03[facility] Route: IVP, 2012 Medical Drug form: INJ, Center Q4H, Dosing Weight 91.818, kg, PRN Other -See Comment, Start date: 10/03/12 18:14:00, Duration: 30 day, Stop date: 11/02/12 18:13:00, SBP > 150 mmHg labetalol 20 mg, 4 mL, IVP No Longer [place] 10/03[facility] Route: IVP, Active 2012 Medical Drug form: INJ, Center Q15Min, Dosing Weight 91.818, kg, PRN Elevated BP, Start date: 10/03/12 18:14:00, Duration: 3 doses or times, Stop date: 10/04/12 0:00:00, SBP > 150 mmHg naloxone 0.2 mg, 0.5 mL, IVP No Longer [place] 10/03[facility] Route: IVP, Active 2012 Medical Drug form: INJ, Center Q5Min, PRN Narcotic Reversal, Start date: 10/03/12 18:04:00, Duration: 30 day, Stop date: 11/02/12 18:03:00 hydrALAZINE 20 mg, Route: [facility]P [facility] [address] IV[facility], ONCE, Active 2012 Medical Dosing Weight Center 91.818, kg, Start date: 10/03/12 17:15:00, Stop date: 10/03/12 17:15:00 diazepam 5 mg, 1 tab, PO No Longer [facility] Route: PO, Drug Active 2012 Medical form: TAB, Q8H, Center Dosing Weight 91.818, kg, Start date: 10/03/12 16:00:00, Duration: 30 day, Stop date: 11/02/12 8:00:00 ondansetron 4 mg, 2 mL, IVP No Longer [facility] Route: IVP, Active 2012 Medical Drug form: INJ, Center ONCE, Dosing Weight 91.818, kg, PRN Nausea & Vomiting, Start date: 10/03/12 15:54:00 promethazine 6.25 mg, 0.25 IVPB No Longer [facility] mL, Route: Active 2012 Medical IVPB, Drug Center form: INJ, ONCE, Dosing Weight 91.818, kg, PRN Nausea & Vomiting, Start date: 10/03/12 15:54:00 flumazenil 0.2 mg, 2 mL, IVP No Longer [facility] Route: IVP, Active 2012 Medical Drug form: INJ, Center PRN, Dosing Weight 91.818, kg, PRN Benzodiazepine Reversal, Initial dose, Start date: 10/03/12 15:54:00, Duration: 1 day, Stop date: 10/04/12 15:53:00 naloxone 0.04 mg, 0.1 IVP No Longer [facility] mL, Route: IVP, Active 2012 Medical Drug form: INJ, Center Q2MIN, Dosing Weight 91.818, kg, PRN Narcotic Reversal, Start date: 10/03/12 15:54:00, Duration: 8 doses or times, Stop date: 10/04/12 0:00:00 fentanyl 25 microgram, IVP No Longer [facility] 0.5 mL, Route: Active 2012 Medical IVP, Drug form: Center INJ, Q5Min, Dosing Weight 91.818, kg, PRN Pain Score 4-6, Start date: 10/03/12 15:54:00, Duration: 4 doses or times, Stop date: 10/04/12 0:00:00 labetalol 5 mg, 1 mL, IVP No Longer [facility] Route: IVP, Active 2012 Medical Drug form: INJ, Center Q5Min, Dosing Weight 91.818, kg, PRN Elevated BP, Start date: 10/03/12 15:54:00, Duration: 5 doses or times, Stop date: 10/04/12 0:00:00 HYDROmorphone 15 mg, 30 mL, IV No Longer [place] [address] [facility] 0.5mg/mL BAR CAPTAIN Route: IV, [facility] CAPTAIN Active 2012 Medical (15mg/30 mL) 15 mg Dose: 0.3 mg, Center BAR CAPTAIN Lockout: 15 minutes, 4 Hour Limit (In MG): 4.8, Drug Form: INJ, Continuous, Start date: 10/03/12 12:00:00, Stop date: 11/02/12 11:59:00 Saline Flush 0.9% 5 ml, Route: IVP No Longer [place] [address] [facility] IVP, Drug Form: Active 2012 Medical INJ, Dosing Center Weight 91.818, kg, PRN, PRN Line Flush, Start date: 10/03/12 11:42:00, Duration: 30 day, Stop date: 11/02/12 11:41:00 ondansetron 4 mg, 2 mL, IVP No Longer [place] [address] [facility] Route: IVP, Active 2012 Medical Drug form: INJ, Center Q8H, Dosing Weight 91.818, kg, PRN Nausea & Vomiting, Start date: 10/03/12 11:42:00, Duration: 30 day, Stop date: 11/02/12 11:41:00 acetaminophen 650 mg, 20.3 PO No Longer [place] [address] [facility] mL, Route: PO, Active 2012 Medical Drug form: LIQ, Center Q4H, Dosing Weight 91.818, kg, PRN Pain 1-3/Temp > 99.5 F, Start date: 10/03/12 11:42:00, Duration: 30 day, Stop date: 11/02/12 11:41:00 acetaminophen-hydr 1 tab, Route: PO No Longer [place] [address] [facility] ocodone 325 mg-10 PO, Drug Form: Active 2012 Medical mg oral tablet TAB, Dosing Center Weight 91.818, kg, Q4H, PRN Pain Score 4-6, Start date: 10/03/12 11:42:00, Duration: 30 day, Stop date: 11/02/12 11:41:00 amLODipine Substitution Active 10/03[facility] Allowed 2012 [facility] NS + KCL 20mEq/L 1,000 mL, Rate: IV No Longer [facility] 1000ml (Premix) 70 ml/hr, Active 2012 Medical 1,000 mL Infuse over: Center 14.3 hr, Route: IV, kg, Total Volume: 1,000, Start date: 10/03/12 5:00:00, Duration: 1 day, Stop date: 10/04/12 4:59:00 cefazolin 2 gm, 100 mL, IVPB No Longer [facility] Route: IVPB, Active 2012 Medical Drug form: INJ, Center PRE OP, Start date: 10/03/12 5:00:00, Duration: 1 day, Stop date: 10/04/12 4:59:00 Vicodin HP 10 PO, PRN, PO Active 10/01[facility] mg-300 mg oral Substitution 2012 Medical tablet Allowed, Center Maintenance Dulcolax Laxative 1 supp, OR, OR Active 10/01[facility] Daily, PRN, 5 2012 [facility] supp, Center constipation, Substitution Allowed, SUPP clonidine 0.1 mg PO, QID, prn PO Active [place] 10/01[facility] oral tablet bp>160, 2012 Medical Substitution [place] Allowedprn bp>160 Benicar HCT 12.5 1 tab, PO, PO Active 10/01[facility] mg-40 mg oral Daily, 30 tab, 2012 Medical tablet Substitution Center Allowed, Maintenance, TAB carvedilol 25 mg 25 mg, 1 tab, PO Active [place] 10/01[facility] oral tablet PO, Q12H, 60 2012 Medical tab, Center Substitution Allowed, TAB Januvia 100 mg 100 mg, 1 tab, PO Active [place] 10/01[facility] oral tablet PO, Daily, 30 2012 [facility] tab, Center Substitution Allowed, TAB Lantus 22 unit, SUB-Q, SUB-Q Active 10/01[facility] Bedtime, 2012 Medical Substitution Center Allowed glimepiride 4 mg 8 mg, 2 tab, PO Active 10/01[facility] oral tablet PO, Daily, 2012 Medical Substitution Center Allowed Allergies, Adverse Reactions, Alerts Substance Category Reaction Severity Reaction Status Date Comments Source type Reported NKDA Assertion Drug Active allergy [facility] NKFA Assertion Drug Active allergy [facility] Immunizations Immunization Date Given Site Status Last Updated Comments Source Results Order Name Results Value Reference Date Interpretation Comments Source Range CHEM PANEL Magnesium 1.8 mg/dL 1.8 - 2.4 01/16 [facility] CHEM PANEL Phosphorus 2.4 mg/dL 2.5 - 4.5 01/16 [facility] CHEM PANEL CO2 30 meq/L 24 - 32 01/16 [facility] CHEM PANEL Glucose Lvl 240 mg/dL 70 - 99 01/16 [facility] CHEM PANEL Creatinine 0.80 mg/dL 0.50 - 01/16 [facility] Lvl 1.40 [facility] CHEM PANEL BUN 20 mg/dL 7 - 22 01/16 [facility] CHEM PANEL eGFR 73 01/16 Result Comment: The eGFR is calculated using the CKD-EPI formula. In most young, healthy individuals the eGFR will be >90 mL/ min/1.73m2. The eGFR declines with age. An eGFR of 60-89 may be normal in mL/min/1. some populations, particularly the elderly, for whom the CKD-EPI formula has not been extensively validated. Use of the eGFR is not recommended in the following populations: [address] Individuals with unstable creatinine concentrations, including patients and those with serious co-morbid conditions. Patients with extremes in muscle mass or diet. The data above are obtained from the National Kid[employer] Disease Education Program (NKDEP) which additionally recommends that when the eGFR is used in patients with extremes of body mass index for purposes of drug dosing, the eGFR should be multiplied by the estimated BMI. CHEM PANEL Albumin Lvl 2.8 g/dL 3.5 - 5.0 01/16 [facility] CHEM PANEL Calcium Lvl 10.5 mg/dL 8.5 - 10.5 01/16 [facility] CHEM PANEL Potassium 4.3 meq/L 3.5 - 5.1 01/16 [facility] CHEM PANEL Chloride Lvl 107 meq/L 95 - 109 01/16 [facility] CHEM PANEL Sodium Lvl 143 meq/L 135 - 145 01/16 [facility] CHEM PANEL AGAP 10.3 meq/L 10.0 - 08 MH 20.0 [facility] HEMATOLOGY Lymphocytes 1.3 K/CMM 1.0 - 5.5 08/ # /2016 [facility] HEMATOLOGY Segs-Bands # 4.4 K/CMM 1.5 - 8.1 08/ [facility] HEMATOLOGY Eosinophils 0.3 K/CMM 0.0 - 0.5 08/ MH # /2015 [facility] HEMATOLOGY Monocytes # 0.6 K/CMM 0.0 - 0.8 08/ [facility] HEMATOLOGY Basophils 0.5 % 0.0 - 1.0 08/ [facility] HEMATOLOGY Eosinophils 4.9 % 0.0 - 4.0 08/ /2015 [facility] HEMATOLOGY Monocytes 9.1 % 2.0 - 12.0 08/ [facility] HEMATOLOGY Lymphocytes 18.9 % 20.0 - 08 40.0 [facility] HEMATOLOGY Segs 66.6 % 45.0 - 08 MH 75.0 [facility] HEMATOLOGY MPV 9.4 fL 7.4 - 10.4 01/16 [facility] HEMATOLOGY Platelet 168 K/CMM 133 - 450 08/ [facility] HEMATOLOGY RDW 13.4 % 11.5 - 08 MH 14.5 [facility] HEMATOLOGY MCHC 32.8 g/dL 32.0 - 08 36.0 /2015 [facility] HEMATOLOGY MCH 30.7 pg 27.0 - 08 MH 31.0 [facility] HEMATOLOGY MCV 93.6 fL 80.0 - 01/16 MH 98.0 [facility] HEMATOLOGY WBC 6.6 K/CMM 3.7 - 10.4 08 [facility] HEMATOLOGY Hct 41.0 % 36.0 - 08 MH 48.0 [facility] HEMATOLOGY Hgb 13.4 g/dL 12.0 - 08 MH 16.0 [facility] HEMATOLOGY RBC 4.38 M/CMM 4.20 - 08 MH 5.40 /2015 [facility] SPECIAL Hgb A1C 10.3 % <=5.6 % 01/16 [facility] CHEM PANEL eGFR 81 01/14 Result Comment: The eGFR is calculated using the CKD-EPI formula. In most young, healthy individuals the eGFR will be >90 mL/ min/1.73m2. The eGFR declines with age. An eGFR of 60-89 may be normal in MH mL/min/1.7 some populations, particularly the elderly, for whom the CKD-EPI formula has not been extensively validated. Use of the eGFR is not recommended in the following populations: [address] Individuals with unstable creatinine concentrations, including patients and those with serious co-morbid conditions. Patients with extremes in muscle mass or diet. The data above are obtained from the National Kidney Disease Education Program (NKDEP) which additionally recommends that when the eGFR is used in patients with extremes of body mass index for purposes of drug dosing, the eGFR should be multiplied by the estimated BMI. CHEM PANEL Creatinine 0.73 mg/dL 0.50 - 01/14 MH Lvl 1.40 [facility] CHEM PANEL AST 7 unit/L 0 - 37 01/14 [facility] CHEM PANEL Total 5.0 g/dL 6.4 - 8.4 01/14 MH [facility] CHEM PANEL Alk Phos 73 unit/L 39 - 136 01/14 [facility] CHEM PANEL ALT 29 unit/L 0 - 65 01/14 [facility] CHEM PANEL Bili Total 0.7 mg/dL 0.2 - 1.3 01/14 [facility] CHEM PANEL Albumin Lvl 2.7 g/dL 3.5 - 5.0 01/14 [facility] CHEM PANEL AGAP 10.9 meq/L 10.0 - 01/14 MH 20.0 [facility] CHEM PANEL Calcium Lvl 10.0 mg/dL 8.5 - 10.5 01/14 [facility] CHEM PANEL Glucose Lvl 208 mg/dL 70 - 99 01/14 [facility] CHEM PANEL Potassium 3.9 meq/L 3.5 - 5.1 01/14 MH Lvl [facility] CHEM PANEL BUN 20 mg/dL 7 - 22 01/14 [facility] CHEM PANEL Sodium Lvl 145 meq/L 135 - 145 01/14 [facility] CHEM PANEL Chloride Lvl 109 meq/L 95 - 109 01/14 [facility] CHEM PANEL CO2 29 meq/L 24 - 32 01/14 [facility] CHEM PANEL B/C Ratio 27 6 - 25 01/14 [facility] CHEM PANEL A/G Ratio 1.2 0.7 - 1.6 01/14 [facility] CHEM PANEL Globulin 2.3 g/dL 2.0 - 4.0 01/14 [facility] HEMATOLOGY Monocytes 11.7 % 2.0 - 12.0 01/14 [facility] HEMATOLOGY Segs-Bands # 4.9 K/CMM 1.5 - 8.1 01/14 [facility] HEMATOLOGY Basophils 0.4 % 0.0 - 1.0 01/14 [facility] HEMATOLOGY Lymphocytes 1.3 K/CMM 1.0 - 5.5 01/14 MH # /2015 [facility] HEMATOLOGY Macrocyte 1+ None Seen 01/[address] [facility] (01/15/16 4:17 AM) HEMATOLOGY Segs 67.7 % 45.0 - 01/14 MH 75.0 [facility] HEMATOLOGY Lymphocytes 17.4 % 20.0 - 01/14 MH 40.0 [facility] HEMATOLOGY Eosinophils 2.8 % 0.0 - 4.0 01/14 [facility] HEMATOLOGY Basophils # 0.0 K/CMM 0.0 - 0.2 01/14 [facility] HEMATOLOGY Eosinophils 0.2 K/CMM 0.0 - 0.5 01/14 MH [facility] HEMATOLOGY Monocytes # 0.9 K/CMM 0.0 - 0.8 01/14 [facility] HEMATOLOGY Platelet 149 K/CMM 133 - 450 01/14 [facility] HEMATOLOGY WBC 7.3 K/CMM 3.7 - 10.4 01/14 [facility] HEMATOLOGY Hct 39.8 % 36.0 - 01/14 MH 48.0 [facility] HEMATOLOGY Hgb 13.0 g/dL 12.0 - 01/14 MH 16.0 [facility] HEMATOLOGY RBC 4.23 M/CMM 4.20 - 01/14 MH 5.40 /2015 [facility] HEMATOLOGY MCHC 32.8 g/dL 32.0 - 01/14 MH 36.0 [facility] HEMATOLOGY MCV 94.0 fL 80.0 - 01/14 MH 98.0 [facility] HEMATOLOGY MCH 30.8 pg 27.0 - 01/14 MH 31.0 [facility] HEMATOLOGY RDW 13.5 % 11.5 - 01/14 MH 14.5 [facility] HEMATOLOGY MPV 9.6 fL 7.4 - 10.4 01/14 [facility] CHEM PANEL Glucose Lvl 133 mg/dL 70 - 99 01/13 [facility] CHEM PANEL BUN 15 mg/dL 7 - 22 01/13 [facility] CHEM PANEL AGAP 11.7 meq/L 10.0 - 01/13 MH 20.0 [facility] CHEM PANEL Calcium Lvl 10.1 mg/dL 8.5 - 10.5 01/13 [facility] CHEM PANEL Potassium 3.7 meq/L 3.5 - 5.1 01/13 MH Lvl /2015 [facility] CHEM PANEL Sodium Lvl 145 meq/L 135 - 145 01/13 [facility] CHEM PANEL CO2 28 meq/L 24 - 32 01/13 [facility] CHEM PANEL Chloride Lvl 109 meq/L 95 - 109 01/13 [facility] CHEM PANEL Creatinine 0.70 mg/dL 0.50 - 01/13 MH Lvl 1.40 [facility] CHEM PANEL eGFR 86 01/13 Result Comment: The eGFR is calculated using the CKD-EPI formula. In most young, healthy individuals the eGFR will be >90 mL/ min/1.73m2. The eGFR declines with age. An eGFR of 60-89 may be normal in mL/min/1. some populations, particularly the elderly, for whom the CKD-EPI formula has not been extensively validated. Use of the eGFR is not recommended in the following populations: [address] Individuals with unstable creatinine concentrations, including patients and those with serious co-morbid conditions. Patients with extremes in muscle mass or diet. The data above are obtained from the National Kidney Disease Education Program (NKDEP) which additionally recommends that when the eGFR is used in patients with extremes of body mass index for purposes of drug dosing, the eGFR should be multiplied by the estimated BMI. Knee 1-2 Knee 1-2 EXAMINATION: Left knee 2 views 01/12 - Views - [facility] unilateral [facility] DX DX HISTORY: Left knee pain status post fall; left knee effusion Read by : uHmphrey Bangura MD Dictated Date/time: 01/13/16 17:47 Electronically Signed by: Humphrey Bangura MD 01/13/16 17:48 FINAL REPORT FINDINGS: 2 views of the left knee on 3 radiographs are performed without comparison. There is a 3 component total knee arthroplasty in near-anatomic alignment without periprosthetic fracture or osteolysis. There is a moderate to large left knee effusion. IMPRESSION: 1. Moderate to large left knee effusion. 2. Left total knee arthroplasty in near-anatomic alignment without periprosthetic fracture Spine Spine lumbar LUMBAR SPINE 4 VIEWS 01/12 - lumbar 2 or 2 or 3 views /2015 - [facility] 3 views DX DX [facility] Clinical History: 75-year-old female with low back pain. Read by: Tim Ruano MD Dictated Date/time: 01/13/16 17:22 Electronically Signed by: Tim Ruano 01/13/16 17:32 FINAL REPORT Comparison: Lumbar spine magnetic resonance imaging 01/12/2016 Findings: Bones are osteopenic. Lumbar spine series demonstrates normal alignment of the lumbar vertebra. Vertebral body height is maintained at all levels with ventral and small dorsal osteophytes. The intervertebral spaces L4-L5 and L5-S1 are significant narrow consistent with disc disease. Facet joints are hypertrophic at the lower lumbar spine. The prevertebral soft tissues are unremarkable with moderate atherosclerotic calcifications of aorta and iliac vessels. Impression: Osteopenia. Lumbar vertebral bodies are aligned. Moderate lower lumbar spondylosis. L4-L5 and L5-S1 disc disease. Hip wo Hip wo EXAMINATION: MRI of the left hip without contrast 01/12 [facility] contrast contrast MRI /2015 - [facility] HISTORY: Left hip pain status post fall; left thigh muscle strain/hematoma Read by: Humphrey Bangura MD Dictated Date/time: 01/13/16 17:16 Electronically Signed by: Humphrey Bangura MD 01/13/16 17:30 FINAL REPORT FINDINGS: There are no radiographs available for review. Multiplanar, multisequence magnetic resonance imaging of the pelvis and left hip was performed with a local coil without contrast. There is no fracture. There is no evidence of avascular necrosis of either hip. There is focal soft tissue edema within the visualized proximal left rectus femoris muscle beginning at the level of the subtrochanteric femur and extending distally for at least 9 cm, but incompletely imaged (series 2, images 21 through 25 and series 5, images 19 through 24) . In addition, there is mild edema within the medial aspect of the left adductor longus and brevis muscles, as well as, the left iliacus muscle consistent with low-grade muscle strains. Mild perifascial edema is noted along the lateral aspect of the bilateral thigh near the level of the greater trochanters and there is mild subc utaneous edema. The left sciatic nerve is normal. The common hamstring origin attachments are normal bilaterally. There is minimal partial-thickness chondrosis along the superior weightbearing left hip joint without subchondral edema. The left hip labrum is intact on this non arthrographic examination. The left lig amentum teres is degenerated with likely partial thickness tearing. The left hip joint capsule is intact. Limited evaluation of the contralateral right hip demonstrates no gross intra-articular abnormality. There is mild osteoarthrosis of the symphysis pubis and mild bilateral sacroiliac joint osteoarthritis. IMPRESSION: 1. Focal soft tissue edema within the visualized proximal left rectus femoris muscle beginning at the level of the subtrochanteric femur and extending distally from at least 9 cm; however, this is incom pletely imaged on this magnetic resonance imaging of the left hip. This either represents a moderate grade strain with partial thickness tearing of the left rectus femoris muscle or potentially, a muscle hematoma. 2. Mild edema within the medial aspect of the left adductor longus and brevis muscles, as well as, the left iliacus muscle consistent with low-grade muscle strains. 3. No acute fracture of the pelvis, sacrum, or bilateral proximal femora. 4. Minimal left hip chondrosis with partial thickness chondrosis along the superior weightbearing left hip joint, but no subchondral edema. 5. Degeneration and likely partial thickness tearing of the left ligamentum teres. 6. Mild osteoarthrosis of the symphysis pubis and mild bilateral sacroiliac joint osteoarthritis. CHEM PANEL Total 4.9 g/dL 6.4 - 8.4 01/12 [facility] CHEM PANEL Alk Phos 60 unit/L 39 - 136 01/12 [facility] CHEM PANEL Bili Total 0.4 mg/dL 0.2 - 1.3 01/12 [facility] CHEM PANEL ALT 22 unit/L 0 - 65 01/12 [facility] CHEM PANEL AST 12 unit/L 0 - 37 01/12 [facility] CHEM PANEL Albumin Lvl 2.7 g/dL 3.5 - 5.0 01/12 [facility] CHEM PANEL Globulin 2.2 g/dL 2.0 - 4.0 01/12 [facility] CHEM PANEL A/G Ratio 1.2 0.7 - 1.6 01/12 [facility] CHEM PANEL B/C Ratio 23 6 - 25 01/12 [facility] HEMATOLOGY RBC 4.18 M/CMM 4.20 - 01/12 MH 5.40 /2015 [facility] HEMATOLOGY WBC 6.7 K/CMM 3.7 - 10.4 01/12 [facility] HEMATOLOGY MPV 9.3 fL 7.4 - 10.4 01/12 [facility] Platelet 159 K/CMM 133 - 450 01/12 [facility] HEMATOLOGY RDW 12.8 % 11.5 - 01/12 MH 14. [facility] HEMATOLOGY MCH 30.7 pg 27.0 - 01/12 MH 31.0 [facility] HEMATOLOGY MCV 93.8 fL 80.0 - 01/12 MH 98.0 [facility] HEMATOLOGY Hct 39.2 % 36.0 - 01/12 MH 48.0 [facility] HEMATOLOGY Hgb 12.8 g/dL 12.0 - 01/12 MH 16.0 [facility] HEMATOLOGY MCHC 32.8 g/dL 32.0 - 01/12 MH 36.0 [facility] HEMATOLOGY Lymphocytes 21.4 % 20.0 - 01/12 MH 40.0 [facility] HEMATOLOGY Segs 64.1 % 45.0 - 01/12 MH 75.0 [facility] HEMATOLOGY Eosinophils 3.1 % 0.0 - 4.0 01/12 [facility] HEMATOLOGY Monocytes 10.9 % 2.0 - 12.0 01/12 [facility] HEMATOLOGY Basophils 0.5 % 0.0 - 1.0 01/12 [facility] HEMATOLOGY Basophils # 0.0 K/CMM 0.0 - 0.2 01/12 [facility] HEMATOLOGY Eosinophils 0.2 K/CMM 0.0 - 0.5 01/12 MH /2015 [facility] HEMATOLOGY Monocytes # 0.7 K/CMM 0.0 - 0.8 01/12 [facility] HEMATOLOGY Lymphocytes 1.4 K/CMM 1.0 - 5.5 01/12 MH [facility] Segs-Bands # 4.3 K/CMM 1.5 - 8.1 01/12 /2015 [facility] Spine Spine lumbar EXAM: MRI LUMBAR SPINE WITHOUT CONTRAST 01/11 - lumbar wo wo contrast /2015 - [facility] contrast MRI DATE: 01/11/2016 10:08 PM CDT . [facility] MRI Read by: Kimani Peñaloza MD Dictated Date/time: 01/12/16 11:45 CLINICAL INDICATION: Pain with neurologic manifestation . Electronically Signed by: Kimani Peñaloza MD 01/12/16 11 :50 FINAL REPORT TECHNIQUE: Multiplanar, multisequence MRI lumbar spine without IV contrast COMPARISON: Unavailable FINDINGS: The lumbar vertebral bodies have normal height, shape, and alignment. The lordosis is straightened. There is no worrisome marrow signal abnormality. The conus terminates normally at L1-L2. The paravertebral soft tissues are within normal limits. Disc spaces, spinal canal, and neural foramina: Short pedicles and dorsal epidural lipomatosis cause baseline narrowing of the central canal. T12-L1. Intervertebral disc height and signal are maintained. Posterior elements are normal. There is no stenosis. L1-L2. Intervertebral disc height and signal are maintained. Posterior elements are normal. There is no stenosis. L2-L3. Loss of intervertebral disc height and signal with small diffuse disc bulge and small radial annular fissure. Facets are mildly enlarged. Central canal measures 9 mm without cauda equina crowdi ng. Lateral recesses are narrowed with disc and facets contacting each L3 nerve root. Neural foramina are patent. L3-L4. Loss of intervertebral disc height and signal with small diffuse disc bulge. Facets are mildly enlarged with ligamentous redundancy. Central canal measures 8 mm without cauda equina crowding. L ateral recesses are narrowed with disc and facets contacting each L4 nerve root. There is mild/moderate right and moderate left narrowing of the neural foramina bilaterally without compression of the L3 nerve roots. The left exiting nerve root is minimally contacted. L4-L5. Loss of intervertebral disc height and signal with moderate diffuse disc bulge and radial annular fissuring. Facets are enlarged bilaterally with ligamentous redundancy and synovial inflammatio n, but no synovial cyst. Central canal measures 7 mm without cauda equina crowding. There is left greater the right lateral recess stenosis with slight mass effect on the descending L5 nerve roots. Ther e is moderate moderate narrowing of the neural foramina without L4 nerve root mass effect. L5-S1. Loss of intervertebral disc height and signal with circumferential disc osteophyte complex asymmetric to the left extra foraminal zone. Facets are mildly enlarged. There is a 2 mm central and l eft subarticular zone protrusion. Central canal measures 9 mm. Left lateral recess is narrowed with mass effect on the left S1 nerve root. There is moderate to severe stenosis of left neural foramen and moderate stenosis of the right. The left exiting nerve root is flattened by disc osteophyte complex. IMPRESSION: 1. Multilevel moderate central canal stenosis without cauda equina compression. Degenerative stenosis is exacerbated by underlying short pedicles and dorsal epidural lipomatosis 2. L5-S1 moderate to severe left neural foramen stenosis. Multilevel moderate foramen stenosis described by level above 3. Annular fissures and L4-L5 facet synovial inflammation or additional potential sources of pain CHEM PANEL Magnesium 1.8 mg/dL 1.8 - 2.4 01/10 Lvl [facility] CHEM PANEL Phosphorus 2.0 mg/dL 2.5 - 4.5 01/10 [facility] HEMATOLOGY Basophils # 0.0 K/CMM 0.0 - 0.2 01/10 [facility] HEMATOLOGY Macrocyte 1+ None Seen 01/10 [facility]* [facility] (01/11/16 6:48 PM) HEMATOLOGY INR 0.99 0.85 - 01/10 1.17 [facility] HEMATOLOGY PTT 23.5 s 22.9 - 01/10 35.8 /2015 [facility] HEMATOLOGY PT 13.4 s 12.0 - 01/10 14.7 /2015 [facility] Chest 2 Chest 2 CLINICAL HISTORY: Abnormal chest sounds. 01/10 - views DX views DX /2015 - [facility] : 1940. Read by: Earl Wiggins MD Dictated Date/time: 01/11/16 20:00 Electronically Signed by: Earl Wiggins MD 01/11/16 20:00 FINAL REPORT TECHNIQUE: PA and lateral views of the chest. Comparison: 09/14/2012. Heart size: Normal. Tortuous aorta. Lungs: No acute consolidation. Shallow inspiration. Pleura: No pleural effusion. Mediastinum and elizabeth: Unremarkable. Skeletal: Unremarkable. IMPRESSION: 1. No active disease in the chest. 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 FINDINGS: Postsurgical changes from prior ACDF from C4 to C6 are again identified. There is no evidence of hardware loosening or failure. No acute fractures identified. The normal lordotic curvature and alignment of the cervical spine is maintained. The remainder of the exam is unchanged. IMPRESSION: Unchanged satisfactory alignment of prior C4-C6 ACDF with no interval detrimental change Spine Spine EXAM: XR CERVICAL SPINE 2 VIEWS 09/17 - [facility] cervical 2 cervical - Luke or 3 views or 3 views DATE: 2013-09-17 12:00:00 Read by: Roxi Paul Dictated Date/time: 09/17/13 14:20 Electronically Signed by: Roxi Paul MD 09/17/13 14:22 FINAL REPORT INDICATION: 723.4 Brachial Neuritis or Radiculitis NOS COMPARISON: March 19, 2013 TECHNIQUE: AP and lateral radiographs of the cervical spine show from the skull base through C7. FINDINGS: The patient is again noted to be status post anterior fusion from C4-C6 with interbody spacers between these levels. Alignment is within normal limits. There is no perihardware lucency or evid ence of failure. No new or superimposed bony abnormality is identified. Prevertebral soft tissue contours are within normal limits. Vascular calcifications overlie the carotid bulbs. IMPRESSION: Unchanged, satisfactory alignment following anterior fusion at C4-C6 . Spine Spine EXAM: XR CERVICAL SPINE 3 VIEWS 03/19 - [facility] cervical 2 cervical - [place] or 3 views or 3 views This report was dictated by a Associate Software Engineer/Fellow. I have personally reviewed the images as well as the Resident's interpretation and agree with the findings. DATE: March 19, 2013 at 0908 Read by: Clemencia Us Resident: Clemencia Us Dictated Date/time: 03/19/13 10:01 Electronically Signed by: Roxi Paul MD 03/19/13 20:16 FINAL REPORT INDICATION: 723.4 Brachial Neuritis or Radiculitis NOS COMPARISON: C-spine x-rays dated December 25, 2012 TECHNIQUE: AP, open-mouth odontoid and lateral radiographs of the cervical spine show from the skull base through T1. DISCUSSION: Patient is status post anterior fusion of C4-C6. There is no evidence of hardware failure. There is unchanged moderate disc space narrowing between C6-C7, and mild degenerative disease at C2 -C3. Cervical spine alignment is maintained. No prevertebral or paraspinous soft tissue abnormality is identified. IMPRESSION: 1. Satisfactory appearance status post anterior fusion of C4-C6. 2. Moderate degenerative disc disease at C6-C7, unchanged Spine Spine EXAM: XR CERVICAL SPINE 2 VIEWS 12/25 - [facility] cervical 2 cervical - [place] or 3 views or 3 views This report was dictated by a Associate Software Engineer/Fellow. I have personally reviewed the images as well as the Resident's interpretation and agree with the findings. DATE: December 25, 2012, 0827 hours. Read by: Max Rob Resident: Max Rob Dictated Date/time: 12/25/12 09:20 Electronically Signed by: Rigoberto Dimas MD 12/25/12 10:50 FINAL REPORT INDICATION: 723.4 Brachial Neuritis or Radiculitis Nos COMPARISON: Cervical spine series November 22, 2012. TECHNIQUE: AP and lateral radiographs cervical spine from the skull base through C7. DISCUSSION: Again seen are anterior spinal fusion hardware from C4 to C6 with intervertebral disc spacers. The cervical spine is in good alignment with no malalignment identified. There is no perihardwa re lucency or evidence of failure. The mild degenerative changes at the C6- C7 disc space with endplate sclerosis end osteophyte formation are unchanged from prior exams. No prevertebral or paraspinous soft tissue abnormality is identified. IMPRESSION: 1. Satisfactory alignment of cervical spine with unchanged appearance of anterior fusion hardware from C4 to C6 without evidence of hardware complication. 2. No significant change in degenerative changes at the C6-C7 disc space. Spine Spine EXAM: CERVICAL SPINE 2 VIEWS 11/22 - [facility] cervical 2 cervical - [place] or 3 views or 3 views This report was dictated by a Associate Software Engineer/Fellow. I have personally reviewed the images as well as the Resident's interpretation and agree with the findings. DATE: November 22, 2012 0803 hours Read by: Alondra Cox Resident: Alondra Cox Dictated Date/time: 11/22/12 08:38 Electronically Signed by: Jesus Rodríguez MD 11/22/12 17:56 FINAL REPORT INDICATION: 723.4 Brachial Neuritis or Radiculitis not otherwise specified COMPARISON: CT C-spine, October 03, 2012 TECHNIQUE: AP and lateral radiographs of the cervical spine show from the skull base through C7. FINDINGS: Anterior interbody fusions from C4 to C6 are reidentified. Interbody screws with intervertebral spacers are in unchanged position. Screws have good purchase. There is no perihardware lucency o r fracture. Cervical alignment is unchanged. There is no prespinous or paraspinous soft tissue abnormality. IMPRESSION: 1. No acute abnormality. 2. Satisfactory appearance of C4-C6 anterior fusion without evidence of hardware failure. BEDSIDE Comment1 Notify 10/06 NA [facility] GLUCOSE JENNIE/ /2012 [facility] TESTING [place] BEDSIDE Gluc POC 308 mg/dL 70 - 99 10/06 [place] 1Interpretive [facility] GLUCOSE [facility] Data: [facility] Reportable Limit: 200 mg/dL. BEDSIDE Comment1 Notify 10/06 NA [facility]o GLUCOSE JENNIE/ /2012 [facility] TESTING [place] BEDSIDE Gluc POC 159 mg/dL 70 - 99 10/06 [place] 2Interpretive [facility] GLUCOSE [facility] Data: [facility] Reportable Limit: 200 mg/dL. CHEMISTRY AGAP 14.3 meq/L 10.0 - 10/06 Normal [facility] 20.0 [facility] CHEMISTRY eGFR 75 10/06 NA 4Result Comment: The eGFR is calculated using the CKD-EPI formula. In most young, healthy individuals the eGFR will be > 90 mL/min/1.73m2. The eGFR declines with age. An eGFR of 60-89 may be normal in [facility] mL/min/1.7 /2012 some populations, particularly the elderly, for whom the CKD-EPI formula has not been extensively validated. Use of the eGFR is not recommended in the following populations: [address] Individuals with unstable creatinine concentrations, including patients and those with serious co-morbid conditions. Patients with extremes in muscle mass or diet. The data above are obtained from the National Kidney Disease Education Program (NKDEP) which additionally recommends that when the eGFR is used in patients with extremes of body mass index for purposes of drug dosing, the eGFR should be multiplied by the estimated BMI. CHEMISTRY Sodium Lvl 139 meq/L 135 - 145 10/06 Normal [facility] CHEMISTRY Chloride Lvl 104 meq/L 95 - 109 10/06 Normal [facility] CHEMISTRY CO2 25 meq/L 24 - 32 10/06 Normal [facility] CHEMISTRY Calcium Lvl 10.7 mg/dL 8.5 - 10.5 10/06 [facility] CHEMISTRY Potassium 4.3 meq/L 3.5 - 5.1 10/06 Normal [facility] CHEMISTRY Glucose Lvl 262 mg/dL 70 - 99 10/06 [place] 6Interpretive Data: Adult reference range values reflect the clinical guidelines of the [place] [employer]. [facility] CHEMISTRY Creatinine 0.8 mg/dL 0.5 - 1.4 10/06 Normal [facility] CHEMISTRY BUN 20 mg/dL 7 - 22 10/06 Normal [facility] HEMATOLOGY Hgb 14.0 g/dL 12.0 - 10/06 Normal [facility] 16.0 [facility] HEMATOLOGY Hct 42.5 % 36.0 - 10/06 [facility] 48.0 [facility] HEMATOLOGY MCV 92.3 fL 81.0 - 10/06 [facility] 99.0 [facility] HEMATOLOGY MCH 30.5 pg 27.0 - 10/06 [facility] 31.0 [facility] HEMATOLOGY MCHC 33.0 g/dL 32.0 - 10/06 [facility] 36.0 [facility] HEMATOLOGY RDW 14.6 % 11.5 - 10/06 HI [facility] 14.5 [facility] HEMATOLOGY Platelet 215 K/CMM 133 - 450 10/06 Normal [facility] HEMATOLOGY MPV 10.0 fL 7.4 - 10.4 10/06 [facility] HEMATOLOGY RBC 4.60 M/CMM 4.20 - 10/06 [facility] [place] 5.40 /2012 [facility] HEMATOLOGY WBC 13.0 K/CMM 3.7 - 10.4 10/06 HI [facility] BEDSIDE Comment1 Notify 10/06 NA [facility] GLUCOSE RN/MD /2012 [facility] BEDSIDE Gluc POC 244 mg/dL 70 - 99 10/06 [place] 3Interpretive [facility] GLUCOSE Lifscn Data: [facility] Upper Reportable Limit: 200 mg/dL. CHEMISTRY Magnesium 2.0 mg/dL 1.8 - 2.4 10/05 Normal [facility] Lvl [facility] Microbiolog Culture: 10/04 [facility] y Urine [facility] URINALYSIS UA <=1.0 0.1 - 1.0 10/04 [facility] Urobilinogen mg/dL Medical
*NA*< Center br/>(10/04 01:52:38) <sup> </sup> URINALYSIS UA Color Yellow Yellow 10/[address] [facility] *NA* Center (10/04/2012 01:52:38) URINALYSIS UA Bacteria Occasional /HPF None Seen 10/04 NA [facility] *NA* Center (10/04/2012 01:52:38) URINALYSIS UA Sq Epi Occasional /LPF Few 10/[address] [facility] *NA* Center (10/04/2012 01:52:38) URINALYSIS UA RBC 6 /HPF 0 - 2 10/04 [facility] URINALYSIS UA Leuk Est Small Negative 10/04 ABN [facility] *ABN* Center (10/04/2012 01:52:38) URINALYSIS UA WBC 12 /HPF 0 - 5 10/04 [facility] URINALYSIS UA Protein 10 mg/dL Negative 10/04 ABN [facility] *ABN* Center (10/04/2012 01:52:38) URINALYSIS UA pH 5.0 5.0 - 8.0 10/04 Normal [facility] URINALYSIS UA Spec Grav 1.022 <=1.030 10/04 Normal [facility] URINALYSIS UA Turbidity Slight Clear 10/04 ABN [facility] *ABN* Center (10/04/2012 01:52:38) URINALYSIS UA Nitrite Negative Negative 10/04 Normal [facility] (10/04/2012 01:52:38) Center URINALYSIS UA Blood Small Negative 10/04 [facility] (10/04/2012 01:52:38) URINALYSIS UA Bili Negative Negative 10/[address] [facility] (10/04/2012 01:52:38) URINALYSIS UA Ketones Negative mg/dL Negative 10/[address] [facility] [place] (10/04/2012 01:52:38) URINALYSIS UA Glucose 30 mg/dL Negative 10/04 [facility] (10/04/2012 01:52:38) CHEMISTRY Phosphorus 3.5 mg/dL 2.5 - 4.5 10/04 Normal [facility] CHEMISTRY AGAP 13.4 meq/L 10.0 - 10/04 Normal [facility] 20.0 [facility] CHEMISTRY Glucose Lvl 181 mg/dL 70 - 99 10/04 [place] 7Interpretive Data: Adult reference range values reflect the clinical guidelines of the [place] [employer]. [facility] CHEMISTRY Creatinine 0.9 mg/dL 0.5 - 1.4 10/04 Normal [facility] CHEMISTRY BUN 17 mg/dL 7 - 22 10/04 Normal [facility] CHEMISTRY Sodium Lvl 140 meq/L 135 - 145 10/04 Normal [facility] CHEMISTRY Chloride Lvl 105 meq/L 95 - 109 10/04 Normal [facility] CHEMISTRY Calcium Lvl 9.7 mg/dL 8.5 - 10.5 10/04 Normal [facility] CHEMISTRY Potassium 4.4 meq/L 3.5 - 5.1 10/04 Normal [facility] CHEMISTRY CO2 26 meq/L 24 - 32 10/04 Normal [facility] CHEMISTRY eGFR 65 10/04 NA 5Result Comment: The eGFR is calculated using the CKD-EPI formula. In most young, healthy individuals the eGFR will be > 90 mL/min/1.73m2. The eGFR declines with age. An eGFR of 60-89 may be normal in [facility] mL/min/1. some populations, particularly the elderly, for whom the CKD-EPI formula has not been extensively validated. Use of the eGFR is not recommended in the following populations: [address] Individuals with unstable creatinine concentrations, including patients and those with serious co-morbid conditions. Patients with extremes in muscle mass or diet. The data above are obtained from the National Kidney Disease Education Program (NKDEP) which additionally recommends that when the eGFR is used in patients with extremes of body mass index for purposes of drug dosing, the eGFR should be multiplied by the estimated BMI. CHEMISTRY Magnesium 1.5 mg/dL 1.8 - 2.4 10/04 LOW [facility] Lvl /2012 [facility] HEMATOLOGY RBC 4.85 M/CMM 4.20 - 10/04 Normal [place] 5.40 /2012 [facility] HEMATOLOGY WBC 9.2 K/CMM 3.7 - 10.4 10/04 [facility] HEMATOLOGY Hgb 14.9 g/dL 12.0 - 10/04 [facility] [place] 16.0 [facility] HEMATOLOGY MCHC 33.3 g/dL 32.0 - 10/04 Normal [place] 36.0 [facility] HEMATOLOGY MCH 30.7 pg 27.0 - 10/04 [facility] [place] 31.0 [facility] HEMATOLOGY Hct 44.9 % 36.0 - 10/04 [facility] [place] 48.0 /2012 [facility] HEMATOLOGY MCV 92.4 fL 81.0 - 10/04 [facility] 99.0 [facility] HEMATOLOGY RDW 14.5 % 11.5 - 10/04 [facility] [place] 14.5 [facility] HEMATOLOGY Platelet 213 K/CMM 133 - 450 10/04 Normal [facility] HEMATOLOGY MPV 9.5 fL 7.4 - 10.4 10/04 [facility] HEMATOLOGY Segs-Bands # 7.7 K/CMM 1.5 - 8.1 10/04 Normal [facility] HEMATOLOGY Basophils 0.3 % 0.0 - 1.0 10/04 Normal [facility] HEMATOLOGY Monocytes # 0.6 K/CMM 0.0 - 0.8 10/04 Normal [facility] HEMATOLOGY Lymphocytes 0.9 K/CMM 1.0 - 5.5 10/04 LOW [place] # /2012 [facility] HEMATOLOGY Lymphocytes 9.5 % 20.0 - 10/04 LOW [place] 40.0 /2012 [facility] HEMATOLOGY Segs 84.1 % 45.0 - 10/04 HI [place] 75.0 [facility] HEMATOLOGY Monocytes 6.0 % 2.0 - 12.0 10/04 Normal [facility] HEMATOLOGY Eosinophils 0.1 % 0.0 - 4.0 10/04 Normal [facility] CHEMISTRY POC A Glu 152 mg/dL 70 - 99 10/03 HI [facility] CHEMISTRY POC A LA 0.7 mMol/L 0.5 - 2.2 10/03 Normal [facility] CHEMISTRY POC A HCO3 24 mMol/L 22 - 10/03 Normal [facility] CHEMISTRY POC A BE -1 mMol/L -2-2 - 2 10/03 Normal [facility] CHEMISTRY POC A Hct 35.0 % 36.0 - 10/03 LOW [facility] 48.0 [facility] CHEMISTRY POC A O2 Sat 96.0 % 95.0 - 10/03 Normal [facility] 100.0 [facility] CHEMISTRY POC A K 3.4 meq/L 3.5 - 5.1 10/03 LOW [facility] CHEMISTRY POC A Na 138 meq/L 135 - 145 10/03 Normal [facility] CHEMISTRY POC A PCO2 40 mm[Hg] 35 - 45 10/03 Normal [facility] CHEMISTRY POC A Ca Ion 1.26 1.16 - 10/03 Normal [facility] mMol/L 1.30 [facility] CHEMISTRY POC A Source ART 10/03 NA [facility] CHEMISTRY POC A Temp 37.0 Kylah 10/03 NA [facility] CHEMISTRY POC A PO2 85 mm[Hg] 80 - 100 10/03 Normal [facility] CHEMISTRY POC A pH 7.39 7.35 - 10/03 Normal [facility] 7.45 [facility] CHEMISTRY POC A PCO2 44 mm[Hg] 35 - 45 10/03 Normal [facility] CHEMISTRY POC A BE 1 mMol/L -2-2 - 2 10/03 Normal [facility] CHEMISTRY POC A HCO3 26 mMol/L 22 - 26 10/03 Normal [facility] CHEMISTRY POC A PO2 161 mm[Hg] 80 - 100 10/03 [facility] [place] CHEMISTRY POC A Na 137 meq/L 135 - 145 10/03 Normal [facility] CHEMISTRY POC A Ca Ion 1.29 1.16 - 10/03 Normal [facility] mMol/L 1.30 [facility] Center CHEMISTRY POC A O2 Sat 99.0 % 95.0 - 10/03 Normal [facility] 100.0 [facility] CHEMISTRY POC A K 3.9 meq/L 3.5 - 5.1 10/03 Normal [facility] CHEMISTRY POC A Hct 38.0 % 36.0 - 10/03 Normal [facility] 48.0 [facility] CHEMISTRY POC A Source ART 10/03 NA [facility] Center CHEMISTRY POC A pH 7.38 7.35 - 10/03 Normal [place] 7.45 [facility] Center CHEMISTRY POC A Temp 37.0 Kylah 10/03 NA [facility] Center CHEMISTRY POC A Glu 150 mg/dL 70 - 99 10/03 HI [facility] Center CHEMISTRY POC A LA 1.1 mMol/L 0.5 - 2.2 10/03 Normal [facility] BLOOD BANK ABO/Rh A NEG 10/03 Unknown [facility] RESULTS [facility] BLOOD BANK Antibody Negative 10/03 Normal [facility] RESULTS [facility] (10/03/2012 09:25:00) Center Vital Signs Vital Sign Value Date Comments Source Temperature Oral (F) 97.5 F 02/14/2016 [facility] [place] Heart Rate 65 02/14/2016 [facility] Respitory Rate 18 02/14/2016 [facility] [place] Systolic (mm Hg) 122 02/14/2016 [facility] [place] [place] Diastolic (mm Hg) 54 02/14/2016 [facility] [place] Systolic (mm Hg) 117 02/14/2016 [facility] [place] Diastolic (mm Hg) 71 02/14/2016 [facility] [place] Respitory Rate 18 02/14/2016 [facility] [place] Temperature Oral (F) 97.6 F 02/14/2016 [facility] [place] Heart Rate 61 02/14/2016 [facility] [place] Temperature Oral (F) 97.8 F 02/14/2016 [facility] [place] Respitory Rate 18 02/14/2016 [facility] [place] Heart Rate 70 02/14/2016 [facility] [place] Systolic (mm Hg) 171 02/14/2016 [facility] [place] Diastolic (mm Hg) 82 02/14/2016 [facility] [place] Weight 89.091 02/10/2016 [facility] [place] [place] Weight 89.545 02/08/2016 [facility] [place] [place] BMI Calculated 32.85 02/08/2016 [facility] [place] Height 165.1 cm 02/08/2016 [facility] [place] [place] Weight 89.545 02/08/2016 [facility] [place] Height 172.72 cm 02/08/2016 [facility] [place] BMI Calculated 30.02 02/08/2016 [facility] [place] Respitory Rate 20 01/19/2016 [facility] [place] Systolic (mm Hg) 131 01/19/2016 [facility] [place] Diastolic (mm Hg) 76 01/19/2016 [facility] [place] [place] Temperature Oral (F) 98.1 F 01/19/2016 [facility] [place] Heart Rate 73 01/19/2016 [facility] [place] Weight 91.864 01/19/2016 [facility] [place] Temperature Oral (F) 99.5 F 01/19/2016 [facility] [place] Heart Rate 59 01/19/2016 [facility] [place] Respitory Rate 20 01/19/2016 [facility] [place] Systolic (mm Hg) 129 01/19/2016 [facility] [place] Diastolic (mm Hg) 68 01/19/2016 [facility] [place] Systolic (mm Hg) 157 01/19/2016 [facility] [place] Diastolic (mm Hg) 78 01/19/2016 [facility] [place] Heart Rate 61 01/19/2016 [facility] [place] Respitory Rate 16 01/19/2016 [facility] [place] Temperature Oral (F) 97.3 F 01/19/2016 [facility] [place] [place] BMI Calculated 35.95 01/11/2016 [facility] Weight 97.983 01/11/2016 [facility] Height 165.1 cm 01/11/2016 [facility] Respitory Rate 33 10/06/2012 [facility] Systolic (mm Hg) 131 10/06/2012 [facility] Diastolic (mm Hg) 53 10/06/2012 [facility] Respitory Rate 16 10/06/2012 [facility] Systolic (mm Hg) 159 10/06/2012 [facility] Diastolic (mm Hg) 44 10/06/2012 [facility] Systolic (mm Hg) 146 10/06/2012 [facility] Diastolic (mm Hg) 56 10/06/2012 [facility] Respitory Rate 19 10/06/2012 [facility] Temperature Oral (F) 96.3 F 10/06/2012 [facility] Temperature Oral (F) 97.9 F 10/06/2012 [facility] Temperature Oral (F) 97.6 F 10/05/2012 [facility] Weight 91.818 10/03/2012 [facility] Height 165.1 cm 10/03/2012 [facility] Heart Rate 55 10/03/2012 [facility] Heart Rate 64 10/01/2012 [facility] Height 165.1 cm 10/01/2012 [facility] Weight 91.818 10/01/2012 [facility] Encounters Location Location Encounter Encounter Reason Attending ADM DC Status Source Details Type Number For Provider Date Date Visit [facility] Inpatient [id number] CERVICAL KERON 10/03 10/06 Active [place] [address] [facility] [place] CERVICAL DISC DISPLACE [facility]ENT [facility] Outpt Diag [id number] _MAPID:[id number] Keron 09/17 09/18 [facility] [id number] [id number] [facility] Outpt Diag [id number] Keron 03/25 03/26 [facility] [id number] [place] 12/01 Active [facility] [id number] [place] 12/14 Active [facility] [id number] KATALINA 12/14 Active [facility] 2 [facility] [id number] SECO 12/14 Active [facility] 3 [facility] Pre Admit [id number] Joao 01/10 01/10 [facility] [facility] [id number] Joao 01/10 01/18 [facility] 8 [facility] Outpatient [id number] KATALINA 01/16 Active [facility] [id number] [place] 02/[address] [facility] Inpatient [id number] [facility] 02/07 02/14 [place] [facility] Outpatient [id number] KATALINA 03/09 Active [facility] 6 [facility] [id number] SECO 03/27 Active [facility] [id number] SECO 04/21 Active [facility] [id number] SECO 06/30 [facility] 9 [place] Procedures Procedure Code Date Perfomer Comments Source Operation [id number] 1abscess [facility] <sup>1</sup> [facility] Cervical [id number] [facility] discectomy [facility] Knee [id number] bilateral [facility] replacement<sup> [facility] 1</sup> Operation<sup>2< [id number] abscess [facility] /sup> drainage/ [facility]
--- OUTSIDE RECORDS SUMMARY | 2018-02-18 13:33 | XMS REPORT | CCD ---
:1940 Author Organization [facility] Care Team Providers Name Role Phone Keron Thomas Referring Provider Allergies, Adverse Reactions, Alerts Substance Reaction Status NKDA Active Problem List Condition Effective Dates Status Diabetes mellitus Resolved GERD - Gastro-esophageal reflux disease Resolved HLD - Hyperlipidemia Resolved HTN - Hypertension Resolved Neuropathy Resolved Medications Medication Instructions Start Date End Date Status cyclobenzaprine 10 mg oral 10 mg, 1 tab, PO, TID, 10/04/2012 10/18/2012 Ordered tablet PRN, 42 tab, Spasm, Substitution Allowed, TAB NS + KCL 20mEq/L 1000ml 1,000 mL, Rate: 70 10/03/2012 10/04/2012 Completed (Premix) 1,000 mL ml/hr, Infuse over: 14.3 hr, Route: IV, kg, Total Volume: 1,000, Start date: 10/03/12 5:00:00, Duration: 1 day, Stop date: 10/04/12 4:59:00 cefazolin 2 gm, 100 mL, Route: 10/03/2012 10/03/2012 Discontinued IVPB, Drug form: INJ, PRE OP, Start date: 10/03/12 5:00:00, Duration: 1 day, Stop date: 10/04/12 4:59:00 olmesartan 40 mg oral tablet 40 mg, 1 tab, PO, 10/04/2012 Ordered Daily, 30 tab, Substitution Allowed, TAB hydrALAZINE 20 mg, 1 mL, Route: 10/03/2012 10/06/2012 Discontinued IVP, Drug form: INJ, Q4H, Dosing Weight 91.818, kg, PRN Other -See Comment, Start date: 10/03/12 18:14:00, Duration: 30 day, Stop date: 11/02/12 18:13:00, SBP > 150 mmHg Pepcid 20 mg oral tablet 20 mg, 1 tab, PO, BID, 10/06/2012 Ordered 60 tab, Substitution Allowed Benadryl 25 mg, 0.5 mL, Route: 10/04/2012 10/04/2012 Completed IVP, Drug form: INJ, ONCE, Dosing Weight 91.818, kg, PRN Insomnia, Start date: 10/04/12 3:22:00 labetalol 20 mg, 4 mL, Route: 10/03/2012 10/03/2012 Completed IVP, Drug form: INJ, Q15Min, Dosing Weight 91.818, kg, PRN Elevated BP, Start date: 10/03/12 18:14:00, Duration: 3 doses or times, Stop date: 10/04/12 0:00:00, SBP > 150 mmHg [place] 10/325 oral tablet 1-2 tab, PO, Q4-6H, 10/06/2012 10/11/2012 Ordered PRN, 90 tab, Pain, Substitution Allowed, Maintenance Ativan 1 mg, 0.5 mL, Route: 10/04/2012 10/05/2012 Discontinued IVP, Drug form: INJ, ONCE, Dosing Weight 91.818, kg, PRN Anxiety, Start date: 10/04/12 11:52:00 hydrALAZINE 20 mg, Route: IVP, 10/03/2012 10/03/2012 Completed ONCE, Dosing Weight 91.818, kg, Start date: 10/03/12 17:15:00, Stop date: 10/03/12 17:15:00 Flexeril 10 mg oral tablet 10 mg, 1 tab, PO, TID, 10/06/2012 Ordered PRN, 30 tab, for spasm, Substitution Allowed, TAB Medrol Dosepak 4 mg Tablet As directed on package instructions, PO, Daily, Take with or without food, 1 Pack, Substitution Allowed 10/06/2012 Ordered Take with or without food acetaminophen-hydrocodone 1 tab, Route: PO, Drug 10/04/2012 10/06/2012 Discontinued 325 mg-10 mg oral tablet Form: TAB, Dosing Weight 91.818, kg, Q4H, PRN Pain Score 4-6, Start date: 10/04/12 11:52:00, Duration: 30 day, Stop date: 11/03/12 11:51:00 Colace 100 mg oral capsule 100 mg, 1 cap, PO, 10/06/2012 Ordered BID, PRN, 20 cap, Constipation, Substitution Allowed, CAP hydrochlorothiazide 25 mg, Route: PO, Drug 10/04/2012 10/06/2012 Discontinued form: TAB, Daily, Dosing Weight 91.818, kg, Start date: 10/04/12 9:00:00, Duration: 30 day, Stop date: 11/02/12 9:00:00 Dulcolax Laxative 1 supp, SD, Daily, 10/01/2012 Ordered PRN, 5 supp, constipation, Substitution Allowed, SUPP insulin aspart 3 unit, 0.03 mL, 10/05/2012 10/06/2012 Discontinued Route: SUB-Q, Drug form: SOLN, TID-Before Meals, Dosing Weight 91.818, kg, PRN Blood Glucose Results, Start date: 10/05/12 17:13:00, Duration: 30 day, Stop date: 11/04/12 17:12:00 insulin aspart 6 unit, 0.06 mL, 10/05/2012 10/06/2012 Discontinued Route: SUB-Q, Drug form: SOLN, TID-Before Meals, Dosing Weight 91.818, kg, PRN Blood Glucose Results, Start date: 10/05/12 17:13:00, Duration: 30 day, Stop date: 11/04/12 17:12:00 insulin aspart 9 unit, 0.09 mL, 10/05/2012 10/06/2012 Discontinued Route: SUB-Q, Drug form: SOLN, TID-Before Meals, Dosing Weight 91.818, kg, PRN Blood Glucose Results, Start date: 10/05/12 17:13:00, Duration: 30 day, Stop date: 11/04/12 17:12:00 insulin aspart 12 unit, 0.12 mL, 10/05/2012 10/06/2012 Discontinued Route: SUB-Q, Drug form: SOLN, TID-Before Meals, Dosing Weight 91.818, kg, PRN Blood Glucose Results, Start date: 10/05/12 17:13:00, Duration: 30 day, Stop date: 11/04/12 17:12:00 insulin aspart 15 unit, 0.15 mL, 10/05/2012 10/06/2012 Discontinued Route: SUB-Q, Drug form: SOLN, TID-Before Meals, Dosing Weight 91.818, kg, PRN Blood Glucose Results, Start date: 10/05/12 17:13:00, Duration: 30 day, Stop date: 11/04/12 17:12:00 glucagon 1 mg, Route: IM, Drug 10/05/2012 10/06/2012 Discontinued form: PDR/INJ, PRN, Dosing Weight 91.818, kg, PRN Blood Glucose Results, Start date: 10/05/12 17:13:00, Duration: 30 day, Stop date: 11/04/12 17:12:00 Dextrose 50% Syringe 12.5 gm, 25 mL, Route: 10/05/2012 10/06/2012 Discontinued IVP, Drug Form: INJ, Dosing Weight 91.818, kg, PRN, PRN Blood Glucose Results, Start date: 10/05/12 17:13:00, Duration: 30 day, Stop date: 11/04/12 17:12:00 Dextrose 50% Syringe 25 gm, 50 mL, Route: 10/05/2012 10/06/2012 Discontinued IVP, Drug Form: INJ, Dosing Weight 91.818, kg, PRN, PRN Blood Glucose Results, Start date: 10/05/12 17:13:00, Duration: 30 day, Stop date: 11/04/12 17:12:00 insulin aspart 1 unit, 0.01 mL, 10/05/2012 10/06/2012 Discontinued Route: SUB-Q, Drug form: SOLN, Bedtime, Dosing Weight 91.818, kg, PRN Blood Glucose Results, Start date: 10/05/12 17:13:00, Duration: 30 day, Stop date: 11/04/12 17:12:00 insulin aspart 3 unit, 0.03 mL, 10/05/2012 10/06/2012 Discontinued Route: SUB-Q, Drug form: SOLN, Bedtime, Dosing Weight 91.818, kg, PRN Blood Glucose Results, Start date: 10/05/12 17:13:00, Duration: 30 day, Stop date: 11/04/12 17:12:00 insulin aspart 2 unit, 0.02 mL, 10/05/2012 10/06/2012 Discontinued Route: SUB-Q, Drug form: SOLN, Bedtime, Dosing Weight 91.818, kg, PRN Blood Glucose Results, Start date: 10/05/12 17:13:00, Duration: 30 day, Stop date: 11/04/12 17:12:00 insulin aspart 4 unit, 0.04 mL, 10/05/2012 10/06/2012 Discontinued Route: SUB-Q, Drug form: SOLN, Bedtime, Dosing Weight 91.818, kg, PRN Blood Glucose Results, Start date: 10/05/12 17:13:00, Duration: 30 day, Stop date: 11/04/12 17:12:00 Dilaudid 0.3 mg, 0.15 mL, 10/04/2012 10/06/2012 Discontinued Route: IV, Drug form: INJ, Q3H, Dosing Weight 91.818, kg, PRN Pain Score 7-10, Start date: 10/04/12 7:57:00, Duration: 30 day, Stop date: 11/03/12 7:56:00 insulin aspart 5 unit, 0.05 mL, 10/05/2012 10/06/2012 Discontinued Route: SUB-Q, Drug form: SOLN, TID-Before Meals, Dosing Weight 91.818, kg, Start date: 10/05/12 11:30:00, Duration: 30 day, Stop date: 11/04/12 7:30:00 Januvia 100 mg, 1 tab, Route: 10/04/2012 10/06/2012 Discontinued PO, Drug form: TAB, Daily, Dosing Weight 91.818, kg, Start date: 10/04/12 9:00:00, Duration: 30 day, Stop date: 11/02/12 9:00:00 clonidine 0.1 mg oral tablet 0.1 mg, 1 tab, Route: 10/04/2012 10/06/2012 Discontinued PO, Drug form: TAB, QID, Dosing Weight 91.818, kg, Start date: 10/04/12 0:00:00, Duration: 30 day, Stop date: 11/02/12 18:00:00 amLODipine 10 mg, 1 tab, Route: 10/04/2012 10/06/2012 Discontinued PO, Drug form: TAB, Daily, Dosing Weight 91.818, kg, Start date: 10/04/12 9:00:00, Duration: 30 day, Stop date: 11/02/12 9:00:00 carvedilol 12.5 mg, 1 tab, Route: 10/03/2012 10/06/2012 Discontinued PO, Drug form: TAB, Q12H, Dosing Weight 91.818, kg, Start date: 10/03/12 21:00:00, Stop date: 11/02/12 9:00:00 clonidine 0.1 mg oral tablet PO, QID, prn bp>160, Substitution Allowed 2012 Ordered prn bp>160 Benicar HCT 12.5 mg-40 mg 1 tab, PO, Daily, 30 10/01/2012 Ordered oral tablet tab, Substitution Allowed, Maintenance, TAB carvedilol 25 mg oral tablet 25 mg, 1 tab, PO, 10/01/2012 Ordered Q12H, 60 tab, Substitution Allowed, TAB Lantus 30 unit, 0.3 mL, 10/04/2012 10/06/2012 Discontinued Route: SUB-Q, Drug form: INJ, Daily, Dosing Weight 91.818, kg, Start date: 10/04/12 9:00:00, Stop date: 11/02/12 9:00:00 diphenhydrAMINE 25 mg oral 25 mg, 1 cap, Route: 10/05/2012 10/06/2012 Discontinued tablet, disintegrating PO, Drug form: CAP, Q8H, Dosing Weight 91.818, kg, PRN Anxiety, Start date: 10/05/12 20:00:00, Duration: 30 day, Stop date: 11/04/12 19:59:00 Januvia 100 mg oral tablet 100 mg, 1 tab, PO, 10/01/2012 Ordered Daily, 30 tab, Substitution Allowed, TAB Lantus 22 unit, SUB-Q, 10/01/2012 Ordered Bedtime, Substitution Allowed Valium 5 mg, 1 tab, Route: 10/05/2012 10/05/2012 Completed PO, Drug form: TAB, ONCE, Dosing Weight 91.818, kg, PRN Anxiety, Start date: 10/05/12 4:41:00, Stop date: 11/04/12 4:40:00 famotidine 20 mg, 1 tab, Route: 10/04/2012 10/06/2012 Discontinued PO, Drug form: TAB, BID, Dosing Weight 91.818, kg, Start date: 10/04/12 21:00:00, Duration: 30 day, Stop date: 11/03/12 9:00:00 amLODipine Substitution Allowed 10/03/2012 Ordered HYDROmorphone 0.5mg/mL [employer] 15 mg, 30 mL, Route: 10/03/2012 10/04/2012 Discontinued (15mg/30 mL) 15 mg IV, [employer] Dose: 0.3 mg, [employer] Lockout: 15 minutes, 4 Hour Limit (In MG): 4.8, Drug Form: INJ, Continuous, Start date: 10/03/12 12:00:00, Stop date: 11/02/12 11:59:00 Ativan 1 mg, 1 tab, Route: 10/05/2012 10/06/2012 Discontinued PO, Drug form: TAB, Bedtime, Dosing Weight 91.818, kg, PRN Insomnia, Start date: 10/05/12 10:38:00, Duration: 30 day, Stop date: 11/04/12 10:37:00 dexamethasone 4 mg, 1 mL, Route: 10/05/2012 10/06/2012 Discontinued IVP, Drug form: INJ, Q6H, Dosing Weight 91.818, kg, Start date: 10/05/12 0:00:00, Duration: 30 day, Stop date: 11/03/12 18:00:00 dexamethasone + Sodium 10 mg, 1 mL, Route: 10/04/2012 10/04/2012 Completed Chloride 0.9% IV 50 mL IVP, Drug form: INJ, ONCE, Dosing Weight 91.818, kg, Start date: 10/04/12 19:14:00, Stop date: 10/04/12 19:14:00 glimepiride 4 mg oral tablet 8 mg, 2 tab, PO, 10/01/2012 Ordered Daily, Substitution Allowed Ancef + Sodium Chloride 0.9% 2 gm, Route: IVPB, 10/03/2012 10/04/2012 Completed IV 100 mL Drug form: PDR/INJ, ABXQ8H, Dosing Weight 91.818, kg, Start date: 10/03/12 20:00:00, Duration: 1 day, Stop date: 10/04/12 12:00:00 labetalol 10 mg, 2 mL, Route: 10/04/2012 10/04/2012 Discontinued IVP, Drug form: INJ, Q15Min, Dosing Weight 91.818, kg, PRN Hypertension, Start date: 10/04/12 3:05:00, Duration: 30 day, Stop date: 11/03/12 3:04:00 Lantus 10 unit, 0.1 mL, 10/05/2012 10/05/2012 Completed Route: SUB-Q, Drug form: INJ, ONCE, Dosing Weight 91.818, kg, Start date: 10/05/12 18:46:00, Stop date: 10/05/12 18:46:00 Saline Flush 0.9% 5 ml, Route: IVP, Drug 10/03/2012 10/06/2012 Discontinued Form: INJ, Dosing Weight 91.818, kg, PRN, PRN Line Flush, Start date: 10/03/12 11:42:00, Duration: 30 day, Stop date: 11/02/12 11:41:00 Saline Flush 0.9% 5 ml, Route: IVP, Drug 10/03/2012 10/06/2012 Discontinued Form: INJ, Dosing Weight 91.818, kg, Q12H, Start date: 10/03/12 21:00:00, Duration: 30 day, Stop date: 11/02/12 9:00:00 ondansetron 4 mg, 2 mL, Route: 10/03/2012 10/06/2012 Discontinued IVP, Drug form: INJ, Q8H, Dosing Weight 91.818, kg, PRN Nausea & Vomiting, Start date: 10/03/12 11:42:00, Duration: 30 day, Stop date: 11/02/12 11:41:00 acetaminophen 650 mg, 20.3 mL, 10/03/2012 10/06/2012 Discontinued Route: PO, Drug form: LIQ, Q4H, Dosing Weight 91.818, kg, PRN Pain 1-3/Temp > 99.5 F, Start date: 10/03/12 11:42:00, Duration: 30 day, Stop date: 11/02/12 11:41:00 acetaminophen-hydrocodone 1 tab, Route: PO, Drug 10/03/2012 10/03/2012 Discontinued 325 mg-10 mg oral tablet Form: TAB, Dosing Weight 91.818, kg, Q4H, PRN Pain Score 4-6, Start date: 10/03/12 11:42:00, Duration: 30 day, Stop date: 11/02/12 11:41:00 docusate 100 mg, 1 cap, Route: 10/03/2012 10/06/2012 Discontinued PO, Drug form: CAP, Q12H, Dosing Weight 91.818, kg, Start date: 10/03/12 21:00:00, Duration: 30 day, Stop date: 11/02/12 9:00:00 senna 8.6 mg, 1 tab, Route: 10/03/2012 10/06/2012 Discontinued PO, Drug Form: TAB, Dosing Weight 91.818, kg, Q12H, Start date: 10/03/12 21:00:00, Duration: 30 day, Stop date: 11/02/12 9:00:00 polyethylene glycol 3350 17 gm, 1 pkt, Route: 10/04/2012 10/06/2012 Discontinued PO, Drug form: PWDR, Daily, Dosing Weight 91.818, kg, Start date: 10/04/12 9:00:00, Duration: 30 day, Stop date: 11/02/12 9:00:00 diazepam 5 mg, 1 tab, Route: 10/03/2012 10/03/2012 Discontinued PO, Drug form: TAB, Q8H, Dosing Weight 91.818, kg, Start date: 10/03/12 16:00:00, Duration: 30 day, Stop date: 11/02/12 8:00:00 hydrALAZINE 10 mg, 0.5 mL, Route: 10/04/2012 10/04/2012 Discontinued IV, Drug form: INJ, Q6H, Dosing Weight 91.818, kg, PRN Elevated BP, Start date: 10/04/12 0:16:00, Duration: 30 day, Stop date: 11/03/12 0:15:00 tramadol 50 mg, 1 tab, Route: 10/03/2012 10/04/2012 Discontinued PO, Drug form: TAB, Q4H, Dosing Weight 91.818, kg, PRN Pain Score 4-6, Start date: 10/03/12 18:56:00, Stop date: 11/02/12 18:55:00 Zofran 4 mg oral tablet 4 mg, 1 tab, PO, Q8H, 10/04/2012 10/14/2012 Ordered 30 tab, Substitution Allowed Flexeril 10 mg, 1 tab, Route: 10/03/2012 10/06/2012 Discontinued PO, Drug form: TAB, TID, Dosing Weight 91.818, kg, PRN Spasm, Start date: 10/03/12 18:54:00, Duration: 30 day, Stop date: 11/02/12 18:53:00 magnesium sulfate 2 gm, 50 mL, Route: 10/04/2012 10/04/2012 Completed IVPB, Drug form: INJ, Q2H, Dosing Weight 91.818, kg, Total dose=4 gm, Start date: 10/04/12 16:00:00, Duration: 2 doses or times, Stop date: 10/04/12 18:00:00 heparin 5,000 unit, 1 mL, 10/05/2012 10/06/2012 Discontinued Route: SUB-Q, Drug form: INJ, Q8H, Dosing Weight 91.818, kg, Start date: 10/05/12 0:00:00, Duration: 30 day, Stop date: 11/03/12 16:00:00 Insulin regular 12 unit, 0.12 mL, 10/04/2012 10/05/2012 Discontinued Route: SUB-Q, Drug form: SOLN, TID-Before Meals, Dosing Weight 91.818, kg, PRN Blood Glucose Results, Start date: 10/04/12 19:54:00, Duration: 30 day, Stop date: 11/03/12 19:53:00 Insulin regular 9 unit, 0.09 mL, 10/04/2012 10/05/2012 Discontinued Route: SUB-Q, Drug form: SOLN, TID-Before Meals, Dosing Weight 91.818, kg, PRN Blood Glucose Results, Start date: 10/04/12 19:54:00, Duration: 30 day, Stop date: 11/03/12 19:53:00 Insulin regular 6 unit, 0.06 mL, 10/04/2012 10/05/2012 Discontinued Route: SUB-Q, Drug form: SOLN, TID-Before Meals, Dosing Weight 91.818, kg, PRN Blood Glucose Results, Start date: 10/04/12 19:54:00, Duration: 30 day, Stop date: 11/03/12 19:53:00 Insulin regular 3 unit, 0.03 mL, 10/04/2012 10/05/2012 Discontinued Route: SUB-Q, Drug form: SOLN, TID-Before Meals, Dosing Weight 91.818, kg, PRN Blood Glucose Results, Start date: 10/04/12 19:54:00, Duration: 30 day, Stop date: 11/03/12 19:53:00 Insulin regular 15 unit, 0.15 mL, 10/04/2012 10/05/2012 Discontinued Route: SUB-Q, Drug form: SOLN, TID-Before Meals, Dosing Weight 91.818, kg, PRN Blood Glucose Results, Start date: 10/04/12 19:54:00, Duration: 30 day, Stop date: 11/03/12 19:53:00 Insulin regular 4 unit, 0.04 mL, 10/04/2012 10/05/2012 Discontinued Route: SUB-Q, Drug form: SOLN, Bedtime, Dosing Weight 91.818, kg, PRN Blood Glucose Results, Start date: 10/04/12 19:54:00, Duration: 30 day, Stop date: 11/03/12 19:53:00 Insulin regular 3 unit, 0.03 mL, 10/04/2012 10/05/2012 Discontinued Route: SUB-Q, Drug form: SOLN, Bedtime, Dosing Weight 91.818, kg, PRN Blood Glucose Results, Start date: 10/04/12 19:54:00, Duration: 30 day, Stop date: 11/03/12 19:53:00 Insulin regular 2 unit, 0.02 mL, 10/04/2012 10/05/2012 Discontinued Route: SUB-Q, Drug form: SOLN, Bedtime, Dosing Weight 91.818, kg, PRN Blood Glucose Results, Start date: 10/04/12 19:54:00, Duration: 30 day, Stop date: 11/03/12 19:53:00 Insulin regular 1 unit, 0.01 mL, 10/04/2012 10/05/2012 Discontinued Route: SUB-Q, Drug form: SOLN, Bedtime, Dosing Weight 91.818, kg, PRN Blood Glucose Results, Start date: 10/04/12 19:54:00, Duration: 30 day, Stop date: 11/03/12 19:53:00 Vicodin HP 10 mg-300 mg oral PO, PRN, Substitution 10/01/2012 Ordered tablet Allowed, Maintenance docusate sodium 100 mg oral 100 mg, 1 cap, PO, 10/04/2012 10/14/2012 Ordered capsule Q12H, PRN, 20 cap, as needed for constipation, Substitution Allowed, CAP Dextrose 50% Syringe 12.5 gm, 25 mL, Route: 10/03/2012 10/04/2012 Discontinued IVP, Drug Form: INJ, Dosing Weight 91.818, kg, PRN, PRN Abnormal Lab Result, Start date: 10/03/12 18:18:00, Duration: 30 day, Stop date: 11/02/12 18:17:00 Dextrose 50% Syringe 25 gm, 50 mL, Route: 10/03/2012 10/04/2012 Discontinued IVP, Drug Form: INJ, Dosing Weight 91.818, kg, PRN, PRN Abnormal Lab Result, Start date: 10/03/12 18:18:00, Duration: 30 day, Stop date: 11/02/12 18:17:00 insulin regular 100 units/mL 5 unit, 0.05 mL, 10/03/2012 10/04/2012 Discontinued human recombinant Route: SUB-Q, Drug form: SOLN, PRN, Dosing Weight 91.818, kg, PRN Abnormal Lab Result, Start date: 10/03/12 18:18:00, Duration: 30 day, Stop date: 11/02/12 18:17:00 insulin regular 100 units/mL 3 unit, 0.03 mL, 10/03/2012 10/04/2012 Discontinued human recombinant Route: SUB-Q, Drug form: SOLN, PRN, Dosing Weight 91.818, kg, PRN Abnormal Lab Result, Start date: 10/03/12 18:18:00, Duration: 30 day, Stop date: 11/02/12 18:17:00 Dextrose 50% Syringe 6.25 gm, 12.5 mL, 10/03/2012 10/04/2012 Discontinued Route: IVP, Drug Form: INJ, Dosing Weight 91.818, kg, PRN, PRN Abnormal Lab Result, Start date: 10/03/12 18:18:00, Duration: 30 day, Stop date: 11/02/12 18:17:00 insulin regular 100 units/mL 7 unit, 0.07 mL, 10/03/2012 10/04/2012 Discontinued human recombinant Route: SUB-Q, Drug form: SOLN, PRN, Dosing Weight 91.818, kg, PRN Abnormal Lab Result, Start date: 10/03/12 18:18:00, Duration: 30 day, Stop date: 11/02/12 18:17:00 glucagon 1 mg, Route: IM, Drug 10/04/2012 10/05/2012 Discontinued form: PDR/INJ, PRN, Dosing Weight 91.818, kg, PRN Blood Glucose Results, Start date: 10/04/12 19:54:00, Duration: 30 day, Stop date: 11/03/12 19:53:00 Dextrose 50% Syringe 25 gm, 50 mL, Route: 10/04/2012 10/05/2012 Discontinued IVP, Drug Form: INJ, Dosing Weight 91.818, kg, PRN, PRN Blood Glucose Results, Start date: 10/04/12 19:54:00, Duration: 30 day, Stop date: 11/03/12 19:53:00 Dextrose 50% Syringe 12.5 gm, 25 mL, Route: 10/04/2012 10/05/2012 Discontinued IVP, Drug Form: INJ, Dosing Weight 91.818, kg, PRN, PRN Blood Glucose Results, Start date: 10/04/12 19:54:00, Duration: 30 day, Stop date: 11/03/12 19:53:00 ondansetron 4 mg, 2 mL, Route: 10/03/2012 10/03/2012 Discontinued IVP, Drug form: INJ, ONCE, Dosing Weight 91.818, kg, PRN Nausea & Vomiting, Start date: 10/03/12 15:54:00 promethazine 6.25 mg, 0.25 mL, 10/03/2012 10/03/2012 Discontinued Route: IVPB, Drug form: INJ, ONCE, Dosing Weight 91.818, kg, PRN Nausea & Vomiting, Start date: 10/03/12 15:54:00 flumazenil 0.2 mg, 2 mL, Route: 10/03/2012 10/03/2012 Discontinued IVP, Drug form: INJ, PRN, Dosing Weight 91.818, kg, PRN Benzodiazepine Reversal, Initial dose, Start date: 10/03/12 15:54:00, Duration: 1 day, Stop date: 10/04/12 15:53:00 naloxone 0.04 mg, 0.1 mL, 10/03/2012 10/03/2012 Discontinued Route: IVP, Drug form: INJ, Q2MIN, Dosing Weight 91.818, kg, PRN Narcotic Reversal, Start date: 10/03/12 15:54:00, Duration: 8 doses or times, Stop date: 10/04/12 0:00:00 fentanyl 25 microgram, 0.5 mL, 10/03/2012 10/03/2012 Completed Route: IVP, Drug form: INJ, Q5Min, Dosing Weight 91.818, kg, PRN Pain Score 4-6, Start date: 10/03/12 15:54:00, Duration: 4 doses or times, Stop date: 10/04/12 0:00:00 labetalol 5 mg, 1 mL, Route: 10/03/2012 10/03/2012 Discontinued IVP, Drug form: INJ, Q5Min, Dosing Weight 91.818, kg, PRN Elevated BP, Start date: 10/03/12 15:54:00, Duration: 5 doses or times, Stop date: 10/04/12 0:00:00 naloxone 0.2 mg, 0.5 mL, Route: 10/03/2012 10/06/2012 Discontinued IVP, Drug form: INJ, Q5Min, PRN Narcotic Reversal, Start date: 10/03/12 18:04:00, Duration: 30 day, Stop date: 11/02/12 18:03:00 tramadol 50 mg oral tablet 1 - 2 tab, PO, Q6H, 10/04/2012 10/18/2012 Ordered PRN, 112 tab, Pain, Substitution Allowed, TAB Vital Signs Most recent to oldest 1 2 3 [Reference Range]: Height 165.1 cm 165.1 cm (10/03/2012 18:01:00) (10/01/2012 13:53:00) Temperature Oral 96.3 DegF 97.9 DegF 97.6 DegF [96.4-99.1 DegF] *LOW* (10/05/2012 23:00:00) (10/05/2012 04:05:00) (10/06/2012 03:33:00) Systolic Blood Pressure 131 mmHg 159 mmHg 146 mmHg [90-140 mmHg] (10/06/2012 11:00:00) *HI* *HI* (10/06/2012 10:00:00) (10/06/2012 09:00:00) Diastolic Blood Pressure 53 mmHg 44 mmHg 56 mmHg [60-90 mmHg] *LOW* *LOW* *LOW* (10/06/2012 11:00:00) (10/06/2012 10:00:00) (10/06/2012 09:00:00) Respiratory Rate [14-20 33 BRMIN 16 BRMIN 19 BRMIN BRMIN] *HI* (10/06/2012 10:00:00) (10/06/2012 09:00:00) (10/06/2012 11:00:00) Peripheral Pulse Rate 55 bpm 64 bpm [60-100 bpm] *LOW* (10/01/2012 13:53:00) (10/03/2012 09:28:00) Weight 91.818 kg 91.818 kg (10/03/2012 18:01:00) (10/01/2012 13:53:00) Results BEDSIDE GLUCOSE TESTING Most recent to oldest 1 2 3 [Reference Range]: Gluc POC Lifscn [70-99 308 mg/dL 1 159 mg/dL 2 244 mg/dL 3 mg/dL] *HI* *HI* *HI* (10/06/2012 07:49:00) (10/06/2012 03:39:00) (10/05/2012 23:41:00) Comment1 Notify RN/MD Notify RN/MD Notify RN/MD *NA* *NA* *NA* (10/06/2012 07:49:00) (10/06/2012 03:39:00) (10/05/2012 23:41:00) 1Interpretive Data: Upper Reportable Limit: 200 mg/dL.2Interpretive Data: Upper Reportable Limit: 200 mg/dL.3Interpretive Data: Upper Reportable Limit: 200 mg/dL.URINALYSIS Most recent to oldest [Reference Range]: 1 2 3 UA Turbidity [Clear] Slight *ABN* (10/04/2012 01:52:38) UA Color [Yellow] Yellow *NA* (10/04/2012 01:52:38) UA pH [5.0-8.0] 5.0 (10/04/2012 01:52:38) UA Spec Grav [<=1.030] 1.022 (10/04/2012 01:52:38) UA Glucose [Negative mg/dL] 30 mg/dL *ABN* (10/04/2012 01:52:38) UA Blood [Negative] Small *ABN* (10/04/2012 01:52:38) UA Ketones [Negative mg/dL] Negative mg/dL *NA* (10/04/2012 01:52:38) UA Protein [Negative mg/dL] 10 mg/dL *ABN* (10/04/2012 01:52:38) UA Urobilinogen [0.1-1.0 mg/dL] <=1.0 mg/dL *NA* (10/04/2012 01:52:38) UA Bili [Negative] Negative *NA* (10/04/2012 01:52:38) UA Leuk Est [Negative] Small *ABN* (10/04/2012 01:52:38) UA Nitrite [Negative] Negative (10/04/2012 01:52:38) UA WBC [0-5 /HPF] 12 /HPF *HI* (10/04/2012 01:52:38) UA RBC [0-2 /HPF] 6 /HPF *HI* (10/04/2012 01:52:38) UA Bacteria [None Seen /HPF] Occasional /HPF *NA* (10/04/2012 01:52:38) UA Sq Epi [Few /LPF] Occasional /LPF *NA* (10/04/2012 01:52:38) BLOOD BANK RESULTS Most recent to oldest [Reference Range]: 1 2 3 ABO/Rh A NEG *Unknown* (10/03/2012 09:25:00) Antibody Scrn Negative (10/03/2012 09:25:00) CHEMISTRY Most recent to oldest [Reference 1 2 3 Range]: Sodium Lvl [135-145 mEq/L] 139 mEq/L 140 mEq/L (10/06/2012 02:19:00) (10/04/2012:52:00) Potassium Lvl [3.5-5.1 mEq/L] 4.3 mEq/L 4.4 mEq/L (10/06/2012 02:19:00) (10/04/2012:52:00) Chloride Lvl [95-109 mEq/L] 104 mEq/L 105 mEq/L (10/06/2012 02:19:00) (10/04/2012:52:00) CO2 [24-32 mEq/L] 25 mEq/L 26 mEq/L (10/06/2012 02:19:00) (10/04/2012:52:00) AGAP [10.0-20.0 mEq/L] 14.3 mEq/L 13.4 mEq/L (10/06/2012 02:19:00) (10/04/2012:52:00) Creatinine Lvl [0.5-1.4 mg/dL] 0.8 mg/dL 0.9 mg/dL (10/06/2012 02:19:00) (10/04/2012:52:00) eGFR 75 mL/min/1.73m2 4 65 mL/min/1.73m2 5 *NA* *NA* (10/06/2012 02:19:00) (10/04/2012:52:00) BUN [7-22 mg/dL] 20 mg/dL 17 mg/dL (10/06/2012 02:19:00) (10/04/2012:52:00) Glucose Lvl [70-99 mg/dL] 262 mg/dL 6 181 mg/dL 7 *HI* *HI* (10/06/2012 02:19:00) (10/04/2012:52:00) Calcium Lvl [8.5-10.5 mg/dL] 10.7 mg/dL 9.7 mg/dL *HI* (10/04/2012:52:00) (10/06/2012 02:19:00) Phosphorus [2.5-4.5 mg/dL] 3.5 mg/dL (10/04/2012:52:00) Magnesium Lvl [1.8-2.4 mg/dL] 2.0 mg/dL 1.5 mg/dL (10/05/2012 02:50:32) *LOW* (10/04/2012 01:52:00) POC A Hct [36.0-48.0 %] 35.0 % 38.0 % *LOW* (10/03/2012 12:27:00) (10/03/2012 14:08:00) POC A Ca Ion [1.16-1.30 mMol/L] 1.26 mMol/L 1.29 mMol/L (10/03/2012 14:08:00) (10/03/2012 12:27:00) POC A K [3.5-5.1 mEq/L] 3.4 mEq/L 3.9 mEq/L *LOW* (10/03/2012 12:27:00) (10/03/2012 14:08:00) POC A Source ART ART *NA* *NA* (10/03/2012 14:08:00) (10/03/2012 12:27:00) POC A Temp 37.0 DegC 37.0 DegC *NA* *NA* (10/03/2012 14:08:00) (10/03/2012 12:27:00) POC A pH [7.35-7.45] 7.39 7.38 (10/03/2012 14:08:00) (10/03/2012 12:27:00) POC A PCO2 [35-45 mmHg] 40 mmHg 44 mmHg (10/03/2012 14:08:00) (10/03/2012 12:27:00) POC A PO2 [80-100 mmHg] 85 mmHg 161 mmHg (10/03/2012 14:08:00) *HI* (10/03/2012 12:27:00) POC A HCO3 [22-26 mMol/L] 24 mMol/L 26 mMol/L (10/03/2012 14:08:00) (10/03/2012 12:27:00) POC A BE [-2-2 mMol/L] -1 mMol/L 1 mMol/L (10/03/2012 14:08:00) (10/03/2012 12:27:00) POC A O2 Sat [95.0-100.0 %] 96.0 % 99.0 % (10/03/2012:08:00) (10/03/2012::00) POC A Glu [70-99 mg/dL] 152 mg/dL 150 mg/dL *HI* *HI* (10/03/2012:08:00) (10/03/2012::00) POC A LA [0.5-2.2 mMol/L] 0.7 mMol/L 1.1 mMol/L (10/03/2012:08:00) (10/03/2012::00) POC A Na [135-145 mEq/L] 138 mEq/L 137 mEq/L (10/03/2012::00) (10/03/2012::00) 4Result Comment: The eGFR is calculated using the CKD-EPI formula. In most young , healthy individualsthe eGFR will be >90 mL/min/1.73m2. The eGFR declines with age. An eGFR of 60-89 may be normal in some populations, particularly the elderly, for whom the CKD-EPI formula has not been extensively validated. Use of the eGFR is not recommended in the following populations: Individuals with unstable creatinine concentrations, including patients and those with serious co-morbid conditions. Patients with extremes in muscle mass or diet. The data above are obtained from the National Kidney Disease Education Program ( NKDEP) which additionally recommends that when the eGFR is used in patients with extremes of body mass index for purposesof drug dosing, the eGFR should be multiplied by the estimated BMI.5Result Comment: The eGFR is calculated using the CKD-EPI formula. In most young, healthy individualsthe eGFR will be >90 mL/ min/1.73m2. The eGFR declines with age. An eGFR of 60-89 may be normal in some populations, particularly the elderly, for whom the CKD-EPI formula has not been extensively validated. Use of the eGFR is not recommended in the following populations: Individuals with unstable creatinine concentrations, including patients and those with serious co-morbid conditions. Patients with extremes in muscle mass or diet. The data above are obtained from the National Kidney Disease Education Program ( NKDEP) which additionally recommends that when the eGFR is used in patients with extremes of body mass index for purposesof drug dosing, the eGFR should be multiplied by the estimated BMI.6Interpretive Data: Adult reference range values reflect the clinical guidelines of the [place] [employer].7Interpretive Data: Adult reference range values reflect the clinical guidelines of the [place] [employer].HEMATOLOGY Most recent to oldest [Reference 1 2 3 Range]: WBC [3.7-10.4 K/CMM] 13.0 K/CMM 9.2 K/CMM *HI* (10/04/2012 01:52:00) (10/06/2012 02:19:00) RBC [4.20-5.40 M/CMM] 4.60 M/CMM 4.85 M/CMM (10/06/2012 02:19:00) (10/04/2012 01:52:00) Hgb [12.0-16.0 g/dL] 14.0 g/dL 14.9 g/dL (10/06/2012 02:19:00) (10/04/2012 01:52:00) Hct [36.0-48.0 %] 42.5 % 44.9 % (10/06/2012 02:19:00) (10/04/2012 01:52:00) MCV [81.0-99.0 fL] 92.3 fL 92.4 fL (10/06/2012 02:19:00) (10/04/2012 01:52:00) MCH [27.0-31.0 pg] 30.5 pg 30.7 pg (10/06/2012 02:19:00) (10/04/2012:52:00) MCHC [32.0-36.0 g/dL] 33.0 g/dL 33.3 g/dL (10/06/2012 02:19:00) (10/04/2012 01:52:00) RDW [11.5-14.5 %] 14.6 % 14.5 % *HI* (10/04/2012 01:52:00) (10/06/2012 02:19:00) Platelet [133-450 K/CMM] 215 K/CMM 213 K/CMM (10/06/2012 02:19:00) (10/04/2012 01:52:00) MPV [7.4-10.4 fL] 10.0 fL 9.5 fL (10/06/2012 02:19:00) (10/04/2012 01:52:00) Segs [45.0-75.0 %] 84.1 % *HI* (10/04/2012 01:52:00) Lymphocytes [20.0-40.0 %] 9.5 % *LOW* (10/04/2012 01:52:00) Monocytes [2.0-12.0 %] 6.0 % (10/04/2012 01:52:00) Eosinophils [0.0-4.0 %] 0.1 % (10/04/2012 01:52:00) Basophils [0.0-1.0 %] 0.3 % (10/04/2012 01:52:00) Segs-Bands # [1.5-8.1 K/CMM] 7.7 K/CMM (10/04/2012 01:52:00) Lymphocytes # [1.0-5.5 K/CMM] 0.9 K/CMM *LOW* (10/04/2012 01:52:00) Monocytes # [0.0-0.8 K/CMM] 0.6 K/CMM (10/04/2012 01:52:00) Microbiology Reports PROCEDURE:Culture: Urine STATUS: Auth (Verified) BODY SITE: COLLECTED DATE/TIME: 10/04/2012 06:00:00 SOURCE: Urine, Clean Catch FREE TEXT SOURCE: FINAL REPORTS Final ReportNo GrowthPRELIMINARY REPORTS Preliminary ReportNo Growth; Holding Procedures Procedures Date Related Diagnosis Operation 1 1abscess drainage/ ofelia-rectal
--- OUTSIDE RECORDS SUMMARY | 2018-02-18 13:34 | XMS REPORT | CCD ---
:1940 Author Organization [facility] Outpatient Imaging [place] Care Team Providers Name Role Phone Keron Thomas Consulting Provider Allergies, Adverse Reactions, Alerts Substance Reaction Status NKDA Active Problem List Condition Effective Dates Status Diabetes mellitus Resolved GERD - Gastro-esophageal reflux disease Resolved HLD - Hyperlipidemia Resolved HTN - Hypertension Resolved Neuropathy Resolved
--- OUTSIDE RECORDS SUMMARY | 2018-02-18 13:34 | XMS REPORT | CCD ---
:1940 Author Organization [facility] Outpatient Imaging [place] Care Team Providers Name Role Phone Keron Thomas Consulting Provider Allergies, Adverse Reactions, Alerts Substance Reaction Status NKDA Active Problem List Condition Effective Dates Status Diabetes mellitus Resolved GERD - Gastro-esophageal reflux disease Resolved HLD - Hyperlipidemia Resolved HTN - Hypertension Resolved Neuropathy Resolved
--- OUTSIDE RECORDS SUMMARY | 2018-02-18 13:34 | XMS REPORT | CCD ---
:1940 Author Organization [facility] Outpatient Imaging [place] Care Team Providers Name Role Phone Keron Thomas Consulting Provider Allergies, Adverse Reactions, Alerts Substance Reaction Status NKDA Active Problem List Condition Effective Dates Status Diabetes mellitus Resolved GERD - Gastro-esophageal reflux disease Resolved HLD - Hyperlipidemia Resolved HTN - Hypertension Resolved Neuropathy Resolved
[2018-02-18 14:19] LABS: Urine Blood NEGATIVE (NEG); Urine Glucose TRACE (NEG); Urine Protein 1+ (NEG)
[2018-02-18 14:21] LABS: Urine Bacteria <20 /HPF (<20); Urine Culture Reflex Order REFLEXED; Urine RBC <5 /HPF (NONE SEEN)
--- NOTE | 2018-02-18 15:20 | EDPHYS ---
Physician Documentation [facility] Name: Kate Love Age: 77 yrs Sex: Female : 1940 Arrival Date: 02/18/2018 Time: 13:28 Bed 28 Private MD: Joao Paz ED Physician Sammy Duron HPI: 02/18 15:16 This 77 yrs old Female presents to ER via Ambulatory with complaints of gs Urinary Problem. 15:16 The patient presents with urinary symptoms, dysuria, urgency. Onset: The gs symptoms/episode began/occurred 3 day(s) ago. Modifying factors: The symptoms are alleviated by nothing, the symptoms are aggravated by urinating. Associated signs and symptoms: Pertinent negatives: fever, hematuria, nausea, vomiting. Severity of symptoms: At their worst the symptoms were moderate, in the emergency department the symptoms are unchanged. The patient has experienced similar episodes in the past, several times. The patient has not recently seen a physician. Historical: - Allergies: 13:35 No Known Allergies; - Home Meds: 13:35 amlodipine 10 mg tab 1 tab once daily [Active]; Breo Ellipta 100-25 mcg/dose inhalation dsdv 1 puff once daily [Active]; carvedilol 12.5 mg oral tab 2 times per day [Active]; clonidine HCl 0.1 mg Oral Tb12 as needed for Hypertension [Active]; furosemide 20 mg Oral tab 1 tab once daily [Active]; glimepiride 4 mg Oral tab 2 tab once daily [Active]; irbesartan 300 mg Oral tab 1 tab once daily [Active]; Levemir subcutaneous subcutaneous [Active]; spironolactone 25 mg Oral tab 1 tab once daily [Active]; Tradjenta 5 mg Oral tab 1 tab once daily [Active]; Vitamin D Oral 2000 unit daily [Active]; - PMHx: 13:35 Diabetes - IDDM; Hyperlipidemia; Hypertension; - PSHx: 13:35 Knee surgery; neck; laminectomy; hj - Immunization history:: Adult Immunizations up to date. - Social history:: Smoking status: Patient/guardian denies using tobacco, Patient uses alcohol. - Ebola Screening: : Patient negative for fever greater than or equal to 101.5 degrees Fahrenheit, and additional compatible Ebola Virus Disease symptoms Patient denies exposure to infectious person Patient denies travel to an Ebola-affected area in the 21 days before illness onset. ROS: 15:16 All other systems are negative. gs Exam: 15:16 Head/Face: Normocephalic, atraumatic. Eyes: Pupils equal round and reactive to light, gs extra-ocular motions intact. Lids and lashes normal. Conjunctiva and sclera are non-icteric and not injected. Cornea within normal limits. Periorbital areas with no swelling, redness, or edema. ENT: Nares patent. No nasal discharge, no septal abnormalities noted. Tympanic membranes are normal and external auditory canals are clear. Oropharynx with no redness, swelling, or masses, exudates, or evidence of obstruction, uvula midline. Mucous membranes moist. Neck: Trachea midline, no thyromegaly or masses palpated, and no cervical lymphadenopathy. Supple, full range of motion without nuchal rigidity, or vertebral point tenderness. No Meningismus. Chest/axilla: Normal chest wall appearance and motion. Nontender with no deformity. No lesions are appreciated. Cardiovascular: Regular rate and rhythm with a normal S1 and S2. No gallops, murmurs, or rubs. Normal PMI, no JVD. No pulse deficits. Respiratory: Lungs have equal breath sounds bilaterally, clear to auscultation and percussion. No rales, rhonchi or wheezes noted. No increased work of breathing, no retractions or nasal flaring. Back: No spinal tenderness. No costovertebral tenderness. Full range of motion. Skin: Warm, dry with normal turgor. Normal color with no rashes, no lesions, and no evidence of cellulitis. MS/ Extremity: Pulses equal, no cyanosis. Neurovascular intact. Full, normal range of motion. Neuro: Awake and alert, GCS 15, oriented to person, place, time, and situation. Cranial nerves II-XII grossly intact. Motor strength 5/5 in all extremities. Sensory grossly intact. Cerebellar exam normal. Normal gait. 15:16 Constitutional: The patient appears alert, awake. 15:16 Abdomen/GI: Palpation: mild abdominal tenderness, in the suprapubic area, rebound tenderness, is not appreciated. Vital Signs: 13:36 BP 151 / 67; Pulse 66; Resp 18; Temp 98.2(TE); Pulse Ox 94% on R/A; Weight 99.79 kg; Height 5 ft. 5 in. (165.10 cm); Pain 06/27; 13:36 Body Mass Index 36.61 (99.79 kg, 165.10 cm) MDM: 13:58 Patient medically screened. 15:16 Differential diagnosis: nonspecific abdominal pain, urinary tract infection. Data gs reviewed: vital signs, nurses notes. Response to treatment: the patient's symptoms have mildly improved after treatment, and as a result, I will discharge patient. 02/18 13:42 Order name: Urine Microscopic Only; Complete Time: 15:16 gs 02/18 13:53 Order name: Urine Dipstick--Ancillary (enter results); Complete Time: 15:16 02/18 13:42 Order name: Urine Dipstick-Ancillary (obtain specimen); Complete Time: 13:53 02/18 14:22 Order name: Urine Culture EDMS Administered Medications: No medications were administered Disposition: 02/18/18 15:19 Discharged to Home. Impression: Cystitis, unspecified without hematuria. - Condition is Stable. - Discharge Instructions: Urinary Tract Infection, Adult. - Prescriptions for Macrobid 100 mg Oral Capsule - take 1 capsule by ORAL route every 12 hours for 7 days; 14 capsule. - Medication Reconciliation Form, Thank You Letter, Antibiotic Education, Prescription Opioid Use form. - Follow up: Private Physician; When: 2 - 3 days; Reason: Re-evaluation by your physician. Signatures: Dispatcher [employer] EDMS Jennifer Thomas RN RN aj1 Kameron Joseph RN RN Sammy Duron MD MD Corrections: (The following items were deleted from the chart) 15:43 15:19 02/18/2018 15:19 Discharged to Home. Impression: Cystitis, unspecified without aj1 hematuria. Condition is Stable. Forms are Medication Reconciliation Form, Thank You Letter, Antibiotic Education, Prescription Opioid Use. Follow up: Private Physician; When: 2 - 3 days; Reason: Re-evaluation by your physician. gs
--- NOTE | 2018-02-18 15:20 | ER ---
Nurse's Notes [facility] Name: Kate Love Age: 77 yrs Sex: Female : 1940 Arrival Date: 02/18/2018 Time: 13:28 Bed 28 Private MD: Joao Paz Diagnosis: Cystitis, unspecified without hematuria Presentation: 02/18 13:30 Presenting complaint: Patient states: last night, i have this urgency with urination hj and a little burning with peeing; reports chills; reports intermittent pain on the bladder dmitry; took 6 pills of azo;. Transition of care: patient was not received from another setting of care. Onset of symptoms was February 18, 2018. Risk Assessment: Do you want to hurt yourself or someone else? Patient reports no desire to harm self or others. Initial Sepsis Screen: Does the patient meet any 2 criteria? No. Patient's initial sepsis screen is negative. Does the patient have a suspected source of infection? No. Patient's initial sepsis screen is negative. Care prior to arrival: None. 13:30 Method Of Arrival: Ambulatory 13:30 Acuity: AURELIA 3 hj Triage Assessment: 13:36 General: Appears in no apparent distress. comfortable, Behavior is calm, cooperative, hj appropriate for age. Pain: Complains of pain in suprapubic area. Historical: - Allergies: 13:35 No Known Allergies; - Home Meds: 13:35 amlodipine 10 mg tab 1 tab once daily [Active]; Breo Ellipta 100-25 mcg/dose inhalation dsdv 1 puff once daily [Active]; carvedilol 12.5 mg oral tab 2 times per day [Active]; clonidine HCl 0.1 mg Oral Tb12 as needed for Hypertension [Active]; furosemide 20 mg Oral tab 1 tab once daily [Active]; glimepiride 4 mg Oral tab 2 tab once daily [Active]; irbesartan 300 mg Oral tab 1 tab once daily [Active]; Levemir subcutaneous subcutaneous [Active]; spironolactone 25 mg Oral tab 1 tab once daily [Active]; Tradjenta 5 mg Oral tab 1 tab once daily [Active]; Vitamin D Oral 2000 unit daily [Active]; - PMHx: 13:35 Diabetes - IDDM; Hyperlipidemia; Hypertension; - PSHx: 13:35 Knee surgery; neck; laminectomy; hj - Immunization history:: Adult Immunizations up to date. - Social history:: Smoking status: Patient/guardian denies using tobacco, Patient uses alcohol. - Ebola Screening: : Patient negative for fever greater than or equal to 101.5 degrees Fahrenheit, and additional compatible Ebola Virus Disease symptoms Patient denies exposure to infectious person Patient denies travel to an Ebola-affected area in the 21 days before illness onset. Screenin:36 Abuse screen: Denies threats or abuse. Denies injuries from another. Nutritional hj screening: No deficits noted. Tuberculosis screening: No symptoms or risk factors identified. Fall Risk None identified. Assessment: 13:57 General: Appears in no apparent distress. comfortable, well groomed, well developed, tl3 well nourished, Behavior is calm, cooperative, appropriate for age. Pain: Complains of pain in suprapubic area Pain currently is 5 out of 10 on a pain scale. Neuro: Level of Consciousness is awake, alert, obeys commands, Oriented to person, place, time, situation, Appropriate for age. Cardiovascular: Patient's skin is warm and dry. Respiratory: Airway is patent Respiratory effort is even, unlabored, Respiratory pattern is regular, symmetrical. GI: No signs and/or symptoms were reported involving the gastrointestinal system. : Urine is clear. : Reports urinary frequency, since s/s started yesterday. EENT: No signs and/or symptoms were reported regarding the EENT system. Derm: No signs and/or symptoms reported regarding the dermatologic system. 15:43 Reassessment: Patient appears in no apparent distress at this time. No changes from aj1 previously documented assessment. Patient and/or family updated on plan of care and expected duration. Pain level reassessed. Patient is alert, oriented x 3, equal unlabored respirations, skin warm/dry/pink. Vital Signs: 13:36 BP 151 / 67; Pulse 66; Resp 18; Temp 98.2(TE); Pulse Ox 94% on R/A; Weight 99.79 kg; hj Height 5 ft. 5 in. (165.10 cm); Pain 1/10; 13:36 Body Mass Index 36.61 (99.79 kg, 165.10 cm) ED Course: 13:28 Patient arrived in ED. sb2 13:29 Joao Paz MD is Private Physician. sb2 13:32 Triage completed. hj 13:36 Arm band placed on left wrist. hj 13:36 Patient has correct armband on for positive identification. Bed in low position. Call hj light in reach. Side rails up X 1. Adult w/ patient. 13:42 Sammy Duron MD is Attending Physician. gs 13:57 No provider procedures requiring assistance completed. Patient did not have IV access tl3 during this emergency room visit. 15:43 Jennifer Thomas, RN is Primary Nurse. aj1 Administered Medications: No medications were administered Outcome: 15:19 Discharge ordered by . gs 15:43 Discharged to home ambulatory. aj1 15:43 Condition: good 15:43 Discharge instructions given to patient, Instructed on discharge instructions, follow up and referral plans. medication usage, Demonstrated understanding of instructions, follow-up care, medications, Prescriptions given X 1. 15:43 Patient left the ED. aj1 Addendum: 02/21/2018 08:21 Addendum: Culture Results: Positive urine culture. No further action required. Bacteria a a5 sensitive to prescribed antibiotic. Signatures: Jennifer Thomas, RN RN aj1 Najma Alvarez, RN RN aa5 Kameron Joseph RN JENNIE Sammy Duron MD MD Adrianne Rachel sb2 Annette Sprague, JENNIE RN tl3 Corrections: (The following items were deleted from the chart) 02/18 13:39 13:36 Pulse 66bpm; Resp 18bpm; Pulse Ox 94% RA; Temp 98.2F Temporal; 99.79 kg; Height 5 hj ft. 5 in.; BMI: 36.6; Pain 1/10; hj
[2018-02-18 15:50] VITALS: BP 151/67; TEMP 98.2; O2SAT 94
== END 2018-02-18 15:43 | disposition home or self-care (01) ==
LOC: ER 13:26
DX: N30.00 Acute cystitis without hematuria (principal); I10 Essential (primary) hypertension; E11.9 Type 2 diabetes mellitus without complications; E78.5 Hyperlipidemia, unspecified; Z79.4 Long term (current) use of insulin
CPT/HCPCS: 81003; 81015; 87077; 87086; 87088; 87186; 99282

== ENCOUNTER 2018-05-26 18:38 | Emergency (ER) | payer OTHER ==
--- OUTSIDE RECORDS SUMMARY | 2018-05-26 18:47 | XMS REPORT | Continuity of Care Document ---
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 CERVICAL Active [facility] RADICULITIS, [address] [place] [address] CERVICAL DISC [facility] Diabetes mellitus Resolved Problem 03/21/2013 PHYLLIS Butler,[facility] GERD - Resolved Problem 03/21/2013 PHYLLIS Gastro-esophageal Luke, reflux disease [facility] HLD - Hyperlipidemia Resolved Problem 03/21/2013 PHYLLIS Butler,[facility] HTN - Hypertension Resolved Problem 03/21/2013 [facility]uropathy Resolved Problem 03/21/2013 [facility] Diabetes mellitus [facility]/17[facility] 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 [facility] GERD - Active Problem 02/17/2016 OPID Gastro-esophageal Luke reflux disease [facility] HLD - Hyperlipidemia Active Problem 02/17/2016 [facility] HTN - Hypertension Active Problem 02/17/2016 [facility] Low back pain Active Problem 02/17/2016 [facility] Lumbar radiculopathy Active Problem 02/17/2016 [facility] Lumbar spondylosis Active Problem 02/17/2016 [facility] Neuropathy Active Problem 02/17/2016 [facility] Obesity Active Problem 02/17/2016 [facility] Lumbar stenosis Active Problem 02/17/2016 [facility] Spondylolisthesis of Active Problem 02/17/2016 lumbar region [facility] Disc disorder of Active Problem 02/17/2016 lumbar region [facility] 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 [facility] canal [facility] BRACHIAL NEURITIS Active [facility] CERV DISC DIS W Active [facility] ILLNESS, UNSPECIFIED Active [facility] Medications Medication Details Route Status Patient Ordering Order Source Instructions Provider Date Lipitor 5 mg, 0.5 tab, No Longer Route: PO, Drug Active 2015 [facility] form: TAB, [facility] QTue, Start date: 02/15/16 21:00:00 CDT, Duration: 30 day, Stop date: 03/14/16 21:00:00 CDTNotes: (Same As: Lipitor) Acetaminophen 325 1 tab, PO, Q6H, Active MG / Hydrocodone PRN pain, # 90 2015 [facility] Bitartrate 10 MG tab, 0 [facility] Oral Tablet [[place] Refill(s), ] given to patient morphine 15 mg 15 mg=1 tab, Active oral tablet, PO, Q12H, # 60 2015 [facility] extended release tab, 0 [facility] Refill(s), given to patient bisacodyl 5 mg 5 mg=1 tab, PO, Active oral enteric TID, PRN [address] [place] [address] coated tablet Constipation, 0 [facility] Refill(s) baclofen 10 mg 5 mg=0.5 tab, Active oral tablet PO, TID, PRN as 2015 [facility] needed for [facility] muscle spasm, # 45 tab, 0 Refill(s) MS Contin 15 mg, 1 tab, No Longer Route: PO, Drug Active 2015 [facility] form: ERTAB, [facility] Q12H, Dosing Weight 89.091, kg, Start date: 02/12/16 21:00:00 CDT, Duration: 30 day, Stop date: 03/13/16 9:00:00 CDTNotes: Do not crush (Same as:Oramorph SR, MS Contin) Lipitor 5 mg, 0.5 tab, No Longer Route: PO, Drug Active 2015 [facility] form: TAB, [facility] QFri, Start date: 02/11/16 21:00:00 CDT, Duration: 30 day, Stop date: 03/10/16 21:00:00 CDTNotes: (Same As: Lipitor) Tylenol 650 mg, 2 tab, No Longer Route: PO, Drug Active 2015 [facility] form: TAB, Q6H, [facility] Dosing Weight 89.091, kg, Start date: 02/11/16 18:00:00 CDT, Duration: 10 day, Stop date: 02/21/16 12:00:00 CDTNotes: Do not exceed 4 gm/day. (Same as: Tylenol) Bisacodyl 5 mg, 1 tab, No Longer Route: PO, Drug Active 2015 [facility] form: ECTAB, [facility] TID, Dosing Weight 89.091, kg, PRN Constipation, Start date: 02/11/16 17:47:00 CDT, Duration: 30 day, Stop date: 03/12/16 17:46:00 CDTNotes: (Same As: Dulcolax, Correctol) (Do Not Crush) "Do Not Crush" Docusate 100 mg, 1 cap, No Longer Route: PO, Drug Active 2015 [facility] form: CAP, TID, [facility] Dosing Weight 89.091, kg, Start date: 02/11/16 17:00:00 CDT, Duration: 30 day, Stop date: 03/12/16 13:00:00 CDTNotes: (Same as: Colace) (Do Not Crush) Simethicone 80 mg, 1 tab, No Longer Route: CHEW, Active 2015 [facility] Drug form: [facility] CHEWTAB, QID, Dosing Weight 89.091, kg, PRN Gas, Start date: 02/11/16 16:04:00 CDT, Duration: 30 day, Stop date: 03/12/16 16:03:00 CDTNotes: (Same as: Mylicon) Bisacodyl 10 mg, 1 supp, No Longer Route: NJ, Drug Active 2015 [facility] form: SUPP, [facility] Daily, Dosing Weight 89.091, kg, PRN Constipation, Start date: 02/11/16 16:04:00 CDT, Duration: 30 day, Stop date: 03/12/16 16:03:00 CDTNotes: (Same As: Dulcolax, Bisco-Lax) Baclofen 5 mg, 0.5 tab, No Longer Route: PO, Drug [facility] 2015 [facility] form: TAB, TID, [facility] Dosing Weight 89.091, kg, Start date: 02/11/16 9:00:00 CDT, Duration: 30 day, Stop date: 03/11/16 17:00:00 CDTNotes: (Same As: Lioresal) Dilaudid 0.2 mg, 0.1 mL, No Longer Route: IVP, [facility] 2015 [facility] Drug form: INJ, [facility] Q2H, Dosing Weight 89.091, kg, PRN Pain Score 7-10, Start date: 02/10/16 17:54:00 CDT, Duration: 30 day, Stop date: 03/11/16 17:53:00 CDTNotes: (Same as: Dilaudid) Acetaminophen 325 1 tab, Route: No Longer MG / Hydrocodone PO, Drug Form: [facility] 2015 [facility] Bitartrate 5 MG TAB, Dosing [facility] Oral Tablet [[place] Weight 89.091, 5/325] kg, Q4H, PRN Pain Score 1-3, Start date: 02/10/16 17:52:00 CDT, Duration: 30 day, Stop date: 03/11/16 17:51:00 CDTNotes: (Same as: [place] 325/5) Do not exceed 4gm/day of acetaminophen. marta bonnienta, 5 No Longer mg, 1 tab, Drug [facility] 2015 [facility] form: MISC, [facility] Route: PO, Daily, 02/09/16 15:00:00 CDT, Duration: 30 day, Stop date: 03/10/16 9:00:00 CDT Rosuvastatin 2.5 mg, PO, Active calcium 5 MG Oral Bedtime, # 30 2015 [facility] Tablet [Crestor] tab, 0 City Refill(s) Sodium Chloride 25 mL, Route: No Longer 0.9% IV IV, Start date: [facility] 2015 [facility] 02/09/16 [facility] 10:15:00 CDT, Duration: 30 day, Stop date: 03/10/16 10:14:00 CDT, PRN Line Flush BD Normal Saline 10 mL, Route: No Longer Flush IV, Drug Form: [address] INJ, PRN, PRN [facility] Line Flush, Start date: 02/09/16 10:15:00 CDT, Duration: 30 day, Stop date: 03/10/16 10:14:00 CDTNotes: (Same as: BD Posiflush) Spironolactone 25 mg, 1 tab, No Longer Route: PO, Drug Active 2015 [facility] form: TAB, [facility] Daily, Dosing Weight 89.545, kg, Start date: 02/09/16 9:00:00 CDT, Duration: 30 day, Stop date: 03/09/16 9:00:00 CDTNotes: (Same As: Aldactone) irbesartan 300 mg, 2 tab, No Longer Route: PO, Drug Active [address] [place] [address] form: [facility] Daily, Dosing Weight 89.545, kg, Start date: 02/09/16 9:00:00 CDT, Duration: 30 day, Stop date: 03/09/16 9:00:00 CDTNotes: (Same as:Avapro) Tradjenta 5 mg, Route: Inactive PO, Drug form: [address] [place] [address] TAB, Daily, [facility] Dosing Weight 89.545, kg, Start date: 02/09/16 9:00:00 CDT Furosemide 20 MG 20 mg, 1 tab, No Longer Oral Tablet Route: PO, Drug Active [address] [place] [address] form: [facility], [facility] Daily, Dosing Weight 89.545, kg, Start date: 02/09/16 9:00:00 CDT, Duration: 30 day, Stop date: 03/09/16 9:00:00 CDTNotes: (Same as: Lasix) May cause GI upset. Give with food or milk. Vitamin D3 2,000 IntlUnit, No Longer 2 tab, Route: Active 2015 [facility] PO, Drug form: [facility] TAB, Daily, Dosing Weight 89.545, kg, Start date: 02/09/16 9:00:00 CDT, Duration: 30 day, Stop date: 03/09/16 9:00:00 CDTNotes: Same as : Vitamin D3 Amlodipine 10 mg, 2 tab, No Longer Route: PO, Drug [facility] 2015 [facility] form: TAB, [facility] Daily, Dosing Weight 89.545, kg, Start date: 02/09/16 9:00:00 CDT, Duration: 30 day, Stop date: 03/09/16 9:00:00 CDTNotes: (Same as: Norvasc) Miralax 17 gm, 1 pkt, No Longer Route: PO, Drug Active 2015 [facility] form: PWDR, [facility] Daily, Dosing Weight 89.545, kg, Start date: 02/09/16 9:00:00 CDT, Duration: 30 day, Stop date: 03/09/16 9:00:00 CDTNotes: Dissolve in 8 oz of water or juice. (Same as: Miralax) Insulin, Aspart, 1 unit, 0.01 No Longer Human mL, Route: [facility] 2015 [facility] SUB-Q, Drug [facility] form: SOLN, Bedtime, Dosing Weight 89.545, [...] mg, Route: No Longer IM, Drug form: [address] PDR/INJ, PRN, [facility] Dosing Weight 89.545, kg, PRN Blood Glucose Results, Start date: 02/09/16 1:52:00 CDT, Duration: 30 day, Stop date: 03/10/16 1:51:00 CDT Dextrose 50% 25 gm, 50 mL, No Longer Syringe Route: IVP, [address] Drug Form: INJ, [facility] Dosing Weight 89.545, kg, PRN, PRN Blood Glucose Results, Start date: 02/09/16 1:52:00 CDT, Duration: 30 day, Stop date: 03/10/16 1:51:00 CDT Crestor Route: PO, Drug No Longer form: TAB, Active 2015 [facility] Bedtime, Dosing [facility] Weight 89.545, kg, Start date: 02/08/16 21:00:00 CDT, Duration: 30 day, Stop date: 03/08/16 21:00:00 CDT Insulin Glargine 40 unit, 0.4 No Longer 100 UNT/ML mL, Route: Active 2015 [facility] Injectable SUB-Q, Drug [facility] Solution [Lantus] form: INJ, Bedtime, Dosing Weight 89.545, kg, Start date: 02/08/16 21:00:00 CDT, Duration: 30 day, Stop date: 03/08/16 21:00:00 CDTNotes: Same as Lantus Solostar PEN Do not hold insulin without contacting prescriber "single patient use only" WASTE: F/P - Black; E - Lela Trash Bin Stable for 28 days at room temperature. Expires in days from D ate carvedilol 12.5 mg, 1 tab, No Longer Route: PO, Drug Active 2015 [facility] form: TAB, City Q12H, Dosing Weight 89.545, kg, Start date: 02/08/16 21:00:00 CDT, Duration: 30 day, Stop date: 03/09/16 9:00:00 CDTNotes: Give with food. (Same As: Coreg) Docusate Sodium 100 mg=1 cap, Active 100 MG Oral PO, BID, 0 2015 [facility] Capsule [Colace] Refill(s) [facility] Linagliptin 5 MG 5 mg=1 tab, PO, No Longer Oral Tablet Daily, 0 Active 2015 [facility] [Tradjenta] Refill(s) [facility] 3 ML Insulin 50 units, Active Glargine 100 SUB-Q, Bedtime, 2015 [facility] UNT/ML Prefilled 0 Refill(s) [facility] Syringe [Lantus] glimepiride 4 mg, PO, Active Daily, 0 2015 [facility] Refill(s) [facility] Clonidine 0.1 mg=1 tab, No Longer Hydrochloride 0.1 PO, PRN Active 2015 [facility] MG Oral Tablet Hypertension, 0 [facility] Refill(s) Ancef + sodium 1 gm, Route: No Longer chloride 0.9% INJ IVPB, Q8H, Active 2015 [facility] 100 mL Dosing Weight [facility] 89.545, kg, Start date: 02/08/16 18:00:00 CDT, Duration: 30 day, Stop date: 03/09/16 10:00:00 CDTNotes: (Same As: Dav Siufzol) MEDICATION WASTE Product Size: 1000 mg Product Wasted: ___ mg Docusate Sodium 100 mg, 1 cap, No Longer 100 MG Oral Route: PO, Drug Active 2015 [facility] Capsule [Colace] form: CAP, BID, [facility] Dosing Weight 89.545, kg, Start date: 02/08/16 17:00:00 CDT, Duration: 30 day, Stop date: 03/09/16 9:00:00 CDTNotes: (Same as: Colace) (Do Not Crush) Ofirmev 1,000 mg, Inactive Route: IV, 2015 [facility] ONCE, Dosing [facility] Weight 89, kg, Start date: 02/08/16 14:25:00 CDT, Stop date: 02/08/16 14:25:00 CDT Ondansetron 4 mg, 2 mL, Inactive Route: IVP2015 [facility] Drug form: INJ, City ONCE, Dosing Weight 89.545, kg, PRN Nausea & Vomiting, Start date: 02/08/16 13:22:00 CDTNotes: (Same as: Zofran) MEDICATION WASTE Product Size: 4 mg Product Wasted: ___ mg Flumazenil 0.2 mg, 2 mL, Inactive Route: IVP, 2015 [facility] Drug form: INJ, City PRN, Dosing Weight 89.545, kg, PRN Benzodiazepine Reversal, Initial dose, Start date: 02/08/16 13:22:00 CDT, Duration: 30 day, Stop date: 03/09/16 13:21:00 CDTNotes: (Same as: Romazicon) Naloxone 0.4 mg, 1 mL, Inactive Route: IVP, 2015 [facility] Drug form: INJ, City Q2MIN, Dosing Weight 89.545, kg, PRN Narcotic Reversal, Start date: 02/08/16 13:22:00 CDT, Duration: 8 doses or times, Stop date: Limited # of timesNotes: Same as Narcan Morphine 2 mg, 0.2 mL, Inactive Route: IVP, 2015 [facility] Drug form: INJ, City Q5Min, Dosing Weight 89.545, kg, PRN Pain Score 4-6, Start date: 02/08/16 13:22:00 CDT, Duration: 5 doses or times, Stop date: Limited # of timesNotes: (Same as:MORPhine Sulfate) Sodium Chloride 1,000 mL, Rate: Inactive 0.154 MEQ/ML 125 ml/hr, 2015 [facility] Injectable Infuse over: 8 City Solution hr, Route: IV, Dosing Weight 89.545 kg, Total Volume: 1,000, Start date: 02/08/16 13:22:00 CDT, Duration: 30 day, Stop date: 03/09/16 13:21:00 CDT Morphine 30 mg, 30 mL, No Longer Route: IV, Active 2015 [facility] Initial Loading [facility] Dose: 2 mg, STAVE BOLT EQUALIZER Dose: 1 mg, STAVE BOLT EQUALIZER Lockout: 10 minutes, Continuous Basal Rate: 0 mg, 4 Hour Limit (In MG): 30, Drug Form: INJ, Continuous, Start date: 02/08/16 13:00:00 CDT, Duration: 30 day, Stop date: 03/09/16...Note s: Dose: Delay: Basal rate: 4hr limit: (Same as:Abby) Naloxone 0.04 mg, 0.1 No Longer mL, Route: IVP, Active 2015 [facility] Drug form: INJ, City Q2MIN, Dosing Weight 89.545, kg, PRN Narcotic Reversal, Start date: 02/08/16 12:53:00 CDT, Duration: 30 day, Stop date: 03/09/16 12:52:00 CDTNotes: Same as Narcan Acetaminophen 325 1 tab, Route: No Longer MG / Hydrocodone PO, Drug Form: [address] Bitartrate 10 MG TAB, Dosing [facility] Oral Tablet [[place] Weight 89.545, 10/325] kg, Q4H, PRN Pain Score 4-6, Start date: 02/08/16 12:53:00 CDT, Duration: 30 day, Stop date: 03/09/16 12:52:00 CDTNotes: Do not exceed 4gm/day of acetaminophen. (Same as: [place] 325/10) Zofran 4 mg, 2 mL, No Longer Route: IV, Drug [address] form: INJ, Q6H, [facility] Dosing Weight 89.545, kg, PRN Nausea, Start date: 02/08/16 12:53:00 CDT, Duration: 30 day, Stop date: 03/09/16 12:52:00 CDTNotes: (Same as: Zofran) MEDICATION WASTE Product Size: 4 mg Product Wasted: ___ mg Robaxin 750 mg, 7.5 mL, No Longer Route: IV, Q6H, [address] Dosing Weight [facility] 89.545, kg, PRN Muscle Spasms, Start date: 02/08/16 12:52:00 CDT, Duration: 30 day, Stop date: 03/09/16 12:51:00 CDTNotes: (Same as:Robaxin) Lactated Ringers 1,000 mL, Rate: No Longer 1,000 mL 75 ml/hr, [address] Infuse over: [facility] 13.3 hr, Route: IV, Dosing Weight 89.545 kg, Total Volume: 1,000, Start date: 02/08/16 12:52:00 CDT, Duration: 30 day, Stop date: 03/09/16 12:51:00 CDT Flexeril 10 mg, 1 tab, No Longer Route: PO, Drug [address] form: TAB, TID, [facility] Dosing Weight 89.545, kg, PRN Spasm, Start date: 02/08/16 12:52:00 CDT, Duration: 30 day, Stop date: 03/09/16 12:51:00 CDTNotes: (Same As: Flexeril) Diphenhydramine 25 mg, 1 cap, No Longer Route: PO, Drug [facility] 2015 [facility] form: CAP, TID, [facility] Dosing Weight 89.545, kg, PRN Itching, Start date: 02/08/16 12:52:00 CDT, Duration: 30 day, Stop date: 03/09/16 12:51:00 CDTNotes: (Same as: Benadryl) phenol 1 spray, Route: No Longer TOP, Q2H, Drug Active 2015 [facility] form: SPRY, PRN [facility] Sore Throat, Start date: 02/08/16 12:52:00 CDT, Duration: 30 day, Stop date: 03/09/16 12:51:00 CDTNotes: Chloraseptic [place] (Same as: Chloraseptic, Sore Throat [place]) WASTE: F/P - Black; E - Municipal Trash Bin ceFAZolin 2 gm, 100 mL, No Longer Route: IVPB, [facility] 2015 [facility] Drug form: INJ, [facility] ONCALL, Start date: 02/07/16 22:00:00 CDT, Duration: 22 hr, Stop date: 02/08/16 19:59:00 CDTNotes: Same as: Anc carvedilol 12.5 mg 12.5 mg=1 tab, Active oral tablet PO, Q12H, 0 2015 [facility] Refill(s) [facility] Acetaminophen 325 1 tab, Route: No Longer MG / Hydrocodone PO, Drug Form: [facility] 2015 [facility] Bitartrate 7.5 MG TAB, Dosing [facility] Oral Tablet [[place] Weight 97.983, 7.5/325] kg, Q4H, PRN Pain Score 4-6, Start date: 01/18/16 9:32:00 CDT, Duration: 30 day, Stop date: 02/17/16 9:31:00 CDTNotes: Same as [place] 325-7.5mg Do not exceed 4gm/day of acetaminophen. sodium phosphate + 15 mmol, 5 mL, No Longer sodium chloride Route: IVPB, [facility] 2015 [facility] 0.9% INJ 250 mL PRN, Dosing [facility] Weight 97.983, kg, PRN Abnormal Lab Result, Start date: 01/17/16 16:42:00 CDT, Stop date: 02/16/16 16:41:00 CDT heparin sodium, 5,000 unit, 1 No Longer porcine 2500 mL, Route: Active 2015 [facility] UNT/ML Injectable SUB-Q, Drug [facility] Solution form: INJ, Q12H, Dosing Weight 97.983, kg, Start date: 01/15/16 21:00:00 CDT, Duration: 30 day, Stop date: 02/14/16 9:00:00 CDTNotes: porcine heparin gabapentin 300 MG 300 mg, 1 cap, No Longer Oral Capsule Route: PO, Drug Active 2015 [facility] form: CAP, TID, [facility] Dosing Weight 97.983, kg, PRN Pain Score 1-5, Start date: 01/15/16 19:22:00 CDT, Duration: 30 day, Stop date: 02/14/16 19:21:00 CDTNotes: (Same as: Neurontin) Insulin, Aspart, 7 unit, 0.07 No Longer Human mL, Route: Active 2015 [facility] SUB-Q, Drug [facility] form: SOLN, TID-Before Meals, Dosing Weight [...] mL, No Longer Route: IV, Drug Active [address] [place] [address] form: INJ, Q6H, [facility] Dosing Weight 97.983, kg, PRN Other -See Comment, Start date: 01/14/16 14:44:00 CDT, Duration: 30 day, Stop date: 02/13/16 14:43:00 CDT, SBP>170Notes: (Same as: Apresoline) Push over 5 minutes Ativan 1 mg, 0.5 mL, Inactive Route: IVP, [address] [place] [address] Drug form: INJ, City ONCE, Dosing Weight 97.983, kg, PRN Procedure, prior to MRI, Start date: 01/13/16 15:06:00 CDTNotes: (Same as: Ativan) Acetaminophen 325 1 tab, Route: No Longer MG / Hydrocodone PO, Drug Form: Active 2015 [facility] Bitartrate 10 MG TAB, Dosing [facility] Oral Tablet [[place] Weight 97.983, 10/325] kg, Q4H, Start date: 01/13/16 15:05:00 CDT, Stop date: 02/12/16 16:00:00 CDT Miralax 17 gm, 1 pkt, No Longer Route: PO, Drug Active 2015 [facility] form: PWDR, [facility] Daily, Dosing Weight 97.983, kg, PRN Constipation, Start date: 01/13/16 9:11:00 CDT, Duration: 30 day, Stop date: 02/12/16 9:10:00 CDTNotes: Dissolve in 8 oz of water or juice. (Same as: Miralax) Lorazepam 0.5 mg, Route: Inactive IVP, Drug form: [address] [place] [address] INJ, ONCE, [facility] Dosing Weight 97.983, kg, PRN Anxiety, Priority: NOW, Start date: 01/12/16 10:44:00 CDT Tradjenta 5 mg, Route: Inactive PO, Drug form: 2015 [facility] TAB, Daily, [facility] Dosing Weight 97.983, kg, Start date: 01/12/16 9:00:00 CDT irbesartan 300 mg, 2 tab, No Longer Route: PO, Drug Active [address] [place] [address] form: TAB, City Daily, Dosing Weight 97.983, kg, Start date: 01/12/16 9:00:00 CDT, Duration: 30 day, Stop date: 02/10/16 9:00:00 CDTNotes: (Same as:Avapro) Furosemide 20 MG 20 mg, 1 tab, No Longer Oral Tablet Route: PO, Drug Active [address] [place] [address] form: TAB, [place] Daily, Dosing Weight 97.983, kg, Start date: 01/12/16 9:00:00 CDT, Duration: 30 day, Stop date: 02/10/16 9:00:00 CDTNotes: (Same as: Lasix) May cause GI upset. Give with food or milk. glimepiride 8 mg, 4 tab, No Longer Route: PO, Drug Active 2015 [facility] form: TAB, [facility] Daily, Dosing Weight 97.983, kg, Start date: 01/12/16 9:00:00 CDT, Duration: 30 day, Stop date: 02/10/16 9:00:00 CDTNotes: (Same as: Amaryl) Tradjenta 5 mg Tradjenta 5 mg No Longer (Patient's own (Patient's own Active 2015 [facility] medicine) medicine), 1 City tab, Drug form: MISC, Route: PO, Daily, 01/12/16 9:00:00 CDT, Duration: 30 day, Stop date: 02/10/16 9:00:00 CDT Aspirin 81 MG 81 mg, 1 tab, No Longer Enteric Coated Route: PO, Drug Active 2015 [facility] Tablet form: ECTAB, [facility] Daily, Dosing Weight 97.983, kg, Start date: 01/12/16 9:00:00 CDT, Duration: 30 day, Stop date: 02/10/16 9:00:00 CDTNotes: Do not crush or chew. (Same As: Ecotrin) Amlodipine 10 mg, 2 tab, No Longer Route: PO, Drug Active 2015 [facility] form: TAB, [facility] Daily, Dosing Weight 97.983, kg, Start date: 01/12/16 9:00:00 CDT, Duration: 30 day, Stop date: 02/10/16 9:00:00 CDTNotes: (Same as: Norvasc) Docusate 100 mg, 1 cap, No Longer Route: PO, Drug Active 2015 [facility] form: CAP, BID, [facility] Dosing Weight 97.983, kg, Start date: 01/12/16 9:00:00 CDT, Duration: 30 day, Stop date: 02/10/16 17:00:00 CDTNotes: (Same as: Colace) (Do Not Crush) Spironolactone 25 mg, 1 tab, No Longer Route: PO, Drug Active 2015 [facility] form: TAB, City Daily, Dosing Weight 97.983, kg, Start date: 01/12/16 9:00:00 CDT, Duration: 30 day, Stop date: 02/10/16 9:00:00 CDTNotes: (Same As: Aldactone) Ativan 1 mg, 0.5 mL, Inactive Route: IVP, 2015 [facility] Drug form: INJ, City ONCE, Dosing Weight 97.983, kg, PRN Procedure, Start date: 01/12/16 8:54:00 CDTNotes: (Same as: Ativan) Sodium Chloride 25 mL, Route: No Longer 0.9% IV IV, Start date: Active 2015 [facility] 01/12/16 [facility] 8:19:00 CDT, Duration: 30 day, Stop date: 02/11/16 8:18:00 CDT, PRN Line Flush BD Normal Saline 10 mL, Route: No Longer Flush IV, Drug Form: [facility] 2015 [facility] INJ, PRN, PRN [facility] Line Flush, Start date: 01/12/16 8:19:00 CDT, Duration: 30 day, Stop date: 02/11/16 8:18:00 CDTNotes: (Same as: BD Posiflush) Insulin, Aspart, 4 unit, 0.04 No Longer Human mL, Route: Active 2015 [facility] SUB-Q, Drug [facility] form: SOLN, Bedtime, Dosing Weight 97.983, [...] No Longer Syringe Route: IVP, Active 2015 [facility] Drug Form: INJ, [facility] Dosing Weight 97.983, kg, PRN, PRN Blood Glucose Results, Start date: 01/11/16 22:38:00 CDT, Duration: 30 day, Stop date: 02/10/16 22:37:00 CDT Glucagon 1 mg, Route: No Longer IM, Drug form: [facility] 2015 [facility] PDR/INJ, PRN, [facility] Dosing Weight 97.983, kg, PRN Blood Glucose Results, Start date: 01/11/16 22:38:00 CDT, Duration: 30 day, Stop date: 02/10/16 22:37:00 CDT Lipitor 10 mg, 1 tab, No Longer Route: PO, Drug Active 2015 [facility] form: TAB, [facility] Bedtime, Start date: 01/11/16 21:38:00 CDT, Duration: 30 day, Stop date: 02/10/16 21:00:00 CDTNotes: (Same As: Lipitor) Lantus 45 unit, 0.45 No Longer mL, Route: Active 2015 [facility] SUB-Q, Drug [facility] form: INJ, Bedtime, Dosing Weight 97.983, [...] No Longer Route: PO, Drug Active 2015 [facility] form: TAB, [facility] Q12H, Dosing Weight 97.983, kg, Start date: 01/11/16 21:00:00 CDT, Stop date: 02/10/16 9:00:00 CDTNotes: Give with food. (Same As: Coreg) Crestor Route: PO, Drug Inactive form: TAB, 2015 [facility] Bedtime, Dosing City Weight 97.983, kg, Start date: 01/11/16 21:00:00 CDT, Duration: 30 day, Stop date: 02/09/16 21:00:00 CDT Acetaminophen 325 1 tab, Route: No Longer MG / Hydrocodone PO, Drug Form: Active [address] [place] [address] Bitartrate 10 MG TAB, Dosing [facility] Oral Tablet [[place] Weight 97.983, 10/325] kg, Q6H, Start date: 01/11/16 18:00:00 CDT, Stop date: 02/10/16 12:00:00 CDTNotes: Do not exceed 4gm/day of acetaminophen. (Same as: [place] 325/10) Enoxaparin 40 mg, 0.4 mL, No Longer Route: SUB-Q, [address] Drug form: INJ, [facility] [id number], Dosing Weight 97.983, kg, Start date: 01/11/16 18:00:00 CDT, Duration: 30 day, Stop date: 02/09/16 18:00:00 CDTNotes: (Same as: Lovenox) Clonidine 0.1 mg, 1 tab, No Longer Hydrochloride 0.1 Route: PO, Drug Active [address] [place] [address] MG Oral Tablet form: TAB, QID, [facility] Dosing Weight 97.983, kg, PRN Hypertension, sbp>170, Start date: 01/11/16 17:56:00 CDT, Duration: 30 day, Stop date: 02/10/16 17:55:00 CDTNotes: (Same As: Catapres) Sodium Chloride 1,000 mL, Rate: No Longer 0.154 MEQ/ML 45 ml/hr, Active 2015 [facility] Injectable Infuse over: [facility] Solution 22.2 hr, Route: IV, Dosing Weight 97.983 kg, Total Volume: 1,000, Start date: 01/11/16 17:53:00 CDT, Duration: 30 day, Stop date: 02/10/16 17:52:00 CDT Saline Flush 0.9% 10 ml, Route: No Longer IVP, Drug Form: Ori [address] [place] [address] INJ, Dosing [facility] Weight 97.983, kg, PRN, PRN Line Flush, Start date: 01/11/16 17:53:00 CDT, Duration: 30 day, Stop date: 02/10/16 17:52:00 CDTNotes: (Same as: BD Posiflush) Morphine 2 mg, 1 mL, No Longer Route: IVP, Active 2015 [facility] Drug form: INJ, City Q4H, Dosing Weight 97.983, kg, PRN Pain Score 7-10, Start date: 01/11/16 17:53:00 CDT, Duration: 30 day, Stop date: 02/10/16 17:52:00 CDTNotes: (Same as:MORPhine Sulfate) Ondansetron 4 mg, 2 mL, No Longer Route: IVP, Active 2015 [facility] Drug form: INJ, City Q6H, Dosing Weight 97.983, kg, PRN Nausea & Vomiting, Start date: 01/11/16 17:53:00 CDT, Duration: 30 day, Stop date: 02/10/16 17:52:00 CDTNotes: (Same as: Rachel) MEDICATION WASTE Product Size: 4 mg Product Wasted: ___ mg Acetaminophen 650 mg, Route: Inactive PO, Drug form: 2015 [facility] TAB, Q4H, [facility] Dosing Weight 97.983, kg, PRN Pain 1-3/Temp > 100.4 F, Start date: 01/11/16 17:53:00 CDT, Duration: 30 day, Stop date: 02/10/16 17:52:00 CDT irbesartan 300 mg 300 mg=1 tab, Active oral tablet PO, Daily, # 30 2015 [facility] tab, 0 [facility] Refill(s) Co Q-10 100 mg 200 mg=2 cap, Active oral capsule PO, Daily, 0 2015 [facility] Refill(s) [facility] Aspirin 81 MG 81 mg=1 tab, Active Enteric Coated PO, Daily, # 90 2015 [facility] Tablet tab, 3 City Refill(s) Vitamin D3 2,000 IntlUnit, Active PO, Daily, 0 2015 [facility] Refill(s) [facility] Rosuvastatin See Active calcium 5 MG Oral Instructions, 1 2015 [facility] Tablet [Crestor] tab PO Bedtime [facility] tuesdays and fridays, 0 Refill(s) spironolactone 25 25 mg=1 tab, Active mg oral tablet PO, Daily, # 30 2015 [facility] tab, 3 City Refill(s) Docusate Sodium 300 mg=3 cap, Active 100 MG Oral PO, Daily, 0 2015 [facility] Capsule [Colace] Refill(s) [facility] Furosemide 20 MG 20 mg=1 tab, Active Oral Tablet PO, Daily, # 30 2015 [facility] tab, 0 City Refill(s) Linagliptin 5 MG 5 mg=1 tab, PO, Active Oral Tablet Daily, # 2015 [facility] [Tradjenta] tab, 3 [facility] Refill(s) Acetaminophen 325 2 tabs, PO, Active MG / Hydrocodone Q6H, 0 2015 [facility] Bitartrate 10 MG Refill(s) [facility] Oral Tablet [[place] 10/325] Amlodipine 10 mg, PO, Active Daily, 0 2015 [facility] Refill(s) [facility] Pepcid 20 mg oral 20 mg, 1 tab, PO Active [place] tablet PO, BID, 60 2012 Medical tab, Center Substitution Allowed [place] 10/325 oral 1-2 tab, PO, PO Active [...] [place] mg Tablet package 2012 Medical instructions, [place] PO, Daily, Take with or without food, [...] 10 unit, 0.1 SUB-Q No Longer [facility] 10/05[facility] mL, Route: Active 2012 Medical SUB-Q, Drug Center form: INJ, ONCE, Dosing Weight 91.818, kg, Start date: 10/05/12 18:46:00, Stop date: 10/05/12 18:46:00 insulin aspart 3 unit, 0.03 SUB-Q No Longer [facility] mL, Route: Active 2012 Medical SUB-Q, Drug Center form: SOLN, TID-Before Meals, Dosing Weight 91.818, kg, PRN Blood Glucose Results, Start date: 10/05/12 17:13:00, Duration: 30 day, Stop date: 11/04/12 17:12:00 glucagon 1 mg, Route: IM No Longer [facility] 10/05[facility] IM, Drug form: Active 2012 Medical PDR/INJ, PRN, Center Dosing Weight 91.818, kg, PRN Blood Glucose Results, Start date: 10/05/12 17:13:00, Duration: 30 day, Stop date: 11/04/12 17:12:00 Dextrose 50% 12.5 gm, 25 mL, IVP No Longer [facility] 10/05[facility] Syringe Route: IVP, Active 2012 Medical Drug Form: INJ, Center Dosing Weight 91.818, kg, PRN, PRN Blood Glucose Results, Start date: 10/05/12 17:13:00, Duration: 30 day, Stop date: 11/04/12 17:12:00 insulin aspart 5 unit, 0.05 SUB-Q No Longer [place] 10/05[facility] mL, Route: Active 2012 Medical SUB-Q, Drug Center form: SOLN, TID-Before Meals, Dosing Weight 91.818, kg, Start date: 10/05/12 11:30:00, Duration: 30 day, Stop date: 11/04/12 7:30:00 Ativan 1 mg, 1 tab, PO No Longer [facility] Route: PO, Drug Active 2012 Medical form: TAB, Center Bedtime, Dosing Weight 91.818, kg, PRN Insomnia, Start date: 10/05/12 10:38:00, Duration: 30 day, Stop date: 11/04/12 10:37:00 Valium 5 mg, 1 tab, PO No Longer [facility] Route: PO, Drug Active 2012 Medical form: TAB, Center ONCE, Dosing Weight 91.818, kg, PRN Anxiety, Start date: 10/05/12 4:41:00, Stop date: 11/04/12 4:40:00 dexamethasone 4 mg, 1 mL, IVP No Longer [facility] Route: IVP, Active 2012 Medical Drug form: INJ, Center Q6H, Dosing Weight 91.818, kg, Start date: 10/05/12 0:00:00, Duration: 30 day, Stop date: 11/03/12 18:00:00 heparin 5,000 unit, 1 SUB-Q No Longer Deniz [facility] mL, Route: Active 2012 Medical SUB-Q, Drug Center form: INJ, Q8H, Dosing Weight 91.818, kg, Start date: 10/05/12 0:00:00, Duration: 30 day, Stop date: 11/03/12 16:00:00 famotidine 20 mg, 1 tab, PO No Longer Dionisio [facility] Route: PO, Drug Active 2012 Medical form: TAB, BID, Center Dosing Weight 91.818, kg, Start date: 10/04/12 21:00:00, Duration: 30 day, Stop date: 11/03/12 9:00:00 Insulin regular 12 unit, 0.12 SUB-Q No Longer [facility] mL, Route: Active 2012 Medical SUB-Q, Drug Center form: SOLN, TID-Before Meals, Dosing Weight 91.818, kg, PRN Blood Glucose Results, Start date: 10/04/12 19:54:00, Duration: 30 day, Stop date: 11/03/12 19:53:00 glucagon 1 mg, Route: IM No Longer [place] IM, Drug form: Active 2012 Medical PDR/INJ, PRN, Center Dosing Weight 91.818, kg, PRN Blood Glucose Results, Start date: 10/04/12 19:54:00, Duration: 30 day, Stop date: 11/03/12 19:53:00 Dextrose 50% 25 gm, 50 mL, IVP No Longer [facility] Syringe Route: IVP, Active 2012 Medical Drug Form: INJ, Center Dosing Weight 91.818, kg, PRN, PRN Blood Glucose Results, Start date: 10/04/12 19:54:00, Duration: 30 day, Stop date: 11/03/12 19:53:00 dexamethasone + 10 mg, 1 mL, IVP No Longer Dionisio [facility] Sodium Chloride Route: IVP, Active 2012 Medical 0.9% IV 50 mL Drug form: INJ, Center ONCE, Dosing Weight 91.818, kg, Start date: 10/04/12 19:14:00, Stop date: 10/04/12 19:14:00 magnesium sulfate 2 gm, 50 mL, IVPB No Longer [facility] Route: IVPB, Active 2012 Medical Drug form: INJ, Center Q2H, Dosing Weight 91.818, kg, Total dose=4 gm, Start date: 10/04/12 16:00:00, Duration: 2 doses or times, Stop date: 10/04/12 18:00:00 Ativan 1 mg, 0.5 mL, IVP No Longer [facility] Route: IVP, Active 2012 Medical Drug form: INJ, Center ONCE, Dosing Weight 91.818, kg, PRN Anxiety, Start date: 10/04/12 11:52:00 acetaminophen-hydr 1 tab, Route: PO No Longer [facility] ocodone 325 mg-10 PO, Drug Form: Active 2012 Medical mg oral tablet TAB, Dosing Center Weight 91.818, kg, Q4H, PRN Pain Score 4-6, Start date: 10/04/12 11:52:00, Duration: 30 day, Stop date: 11/03/12 11:51:00 hydrochlorothiazid 25 mg, Route: PO No Longer [place] e PO, Drug form: Active 2012 Medical TAB, Daily, Center Dosing Weight 91.818, kg, Start date: 10/04/12 9:00:00, Duration: 30 day, Stop date: 11/02/12 9:00:00 Januvia 100 mg, 1 tab, PO No Longer [facility] Route: PO, Drug Active 2012 Medical form: TAB, Center Daily, Dosing Weight 91.818, kg, Start date: 10/04/12 9:00:00, Duration: 30 day, Stop date: 11/02/12 9:00:00 amLODipine 10 mg, 1 tab, PO No Longer [facility] 10/04[facility] Route: PO, Drug Active 2012 Medical form: TAB, Center Daily, Dosing Weight 91.818, kg, Start date: 10/04/12 9:00:00, Duration: 30 day, Stop date: 11/02/12 9:00:00 Lantus 30 unit, 0.3 SUB-Q No Longer [facility] mL, Route: Active 2012 Medical SUB-Q, Drug Center form: INJ, Daily, Dosing Weight 91.818, kg, Start date: 10/04/12 9:00:00, Stop date: 11/02/12 9:00:00 polyethylene 17 gm, 1 pkt, PO No Longer [facility] 10/04[facility] glycol 3350 Route: PO, Drug Active 2012 Medical form: PWDR, Center Daily, Dosing Weight 91.818, kg, Start date: 10/04/12 9:00:00, Duration: 30 day, Stop date: 11/02/12 9:00:00 Zofran 4 mg oral 4 mg, 1 tab, PO Active [facility] 10/04[facility] tablet PO, Q8H, 30 2012 Medical tab, Center Substitution Allowed docusate sodium 100 mg, 1 cap, PO Active [facility] 10/04[facility] [place] 100 mg oral PO, Q12H, PRN, 2012 Medical capsule 20 cap, as Center needed for constipation, Substitution Allowed, CAP tramadol 50 mg 1 - 2 tab, PO, PO Active [place] [address] oral tablet Q6H, PRN, 112 2012 Medical tab, Pain, Center Substitution Allowed, TAB cyclobenzaprine 10 10 mg, 1 tab, PO Active [place] [address] [place] mg oral tablet PO, TID, PRN, 2013 Medical 42 tab, Spasm, Center Substitution Allowed, TAB olmesartan 40 mg 40 mg, 1 tab, PO Active [place] [address] oral tablet PO, Daily, 2012 Medical tab, Center Substitution Allowed, TAB Dilaudid 0.3 mg, 0.15 IV No Longer [facility] mL, Route: IV, Active 2012 Medical [...] 10 mg, 2 mL, IVP No Longer [facility] Route: IVP, Active 2012 Medical Drug form: INJ, Center Q15Min, Dosing Weight 91.818, kg, PRN Hypertension, Start date: 10/04/12 3:05:00, Duration: 30 day, Stop date: 11/03/12 3:04:00 hydrALAZINE 10 mg, 0.5 mL, IV No Longer [facility] Route: IV, Drug Active 2012 Medical [...] 12.5 mg, 1 tab, PO No Longer [facility] Route: PO, Drug Active 2012 Medical form: TAB, Center Q12H, Dosing Weight 91.818, kg, Start date: 10/03/12 21:00:00, Stop date: 11/02/12 9:00:00 Saline Flush 0.9% 5 ml, Route: IVP No Longer [facility] IVP, Drug Form: Active 2012 Medical INJ, Dosing Center Weight 91.818, kg, Q12H, Start date: 10/03/12 21:00:00, Duration: 30 day, Stop date: 11/02/12 9:00:00 docusate 100 mg, 1 cap, PO No Longer [facility] Route: PO, Drug Active 2012 Medical form: CAP, Center Q12H, Dosing Weight 91.818, kg, Start date: 10/03/12 21:00:00, Duration: 30 day, Stop date: 11/02/12 9:00:00 senna 8.6 mg, 1 tab, PO No Longer [facility] Route: PO, Drug Active 2012 Medical Form: TAB, Center Dosing Weight 91.818, kg, Q12H, Start date: 10/03/12 21:00:00, Duration: 30 day, Stop date: 11/02/12 9:00:00 Ancef + Sodium 2 gm, Route: IVPB No Longer [facility] Chloride 0.9% IV IVPB, Drug Active 2012 Medical 100 mL form: PDR/INJ, Center ABXQ8H, Dosing Weight 91.818, kg, Start date: 10/03/12 20:00:00, Duration: 1 day, Stop date: 10/04/12 12:00:00 tramadol 50 mg, 1 tab, PO No Longer [facility] Route: PO, Drug Active 2012 Medical form: TAB, Q4H, Center Dosing Weight 91.818, kg, PRN Pain Score 4-6, Start date: 10/03/12 18:56:00, Stop date: 11/02/12 18:55:00 Flexeril 10 mg, 1 tab, PO No Longer [facility] Route: PO, Drug Active 2012 Medical form: TAB, TID, Center Dosing Weight 91.818, kg, PRN Spasm, Start date: 10/03/12 18:54:00, Duration: 30 day, Stop date: 11/02/12 18:53:00 Dextrose 50% 12.5 gm, 25 mL, IVP No Longer [facility] Syringe Route: IVP, Active 2012 Medical Drug Form: INJ, Center Dosing Weight 91.818, kg, PRN, PRN Abnormal Lab Result, Start date: 10/03/12 18:18:00, Duration: 30 day, Stop date: 11/02/12 18:17:00 insulin regular 5 unit, 0.05 SUB-Q No Longer [facility] 100 units/mL human mL, Route: Active 2012 Medical recombinant SUB-Q, Drug Center form: SOLN, PRN, Dosing Weight 91.818, kg, PRN Abnormal Lab Result, Start date: 10/03/12 18:18:00, Duration: 30 day, Stop date: 11/02/12 18:17:00 hydrALAZINE 20 mg, 1 mL, IVP No Longer [facility] 10/03[facility] Route: IVP, 2012 Medical Drug form: INJ, Center Q4H, Dosing Weight 91.818, kg, PRN Other -See Comment, Start date: 10/03/12 18:14:00, Duration: 30 day, Stop date: 11/02/12 18:13:00, SBP > 150 mmHg labetalol 20 mg, 4 mL, IVP No Longer [facility] 10/03[facility] Route: IVP, Active 2012 Medical Drug form: INJ, Center Q15Min, Dosing Weight 91.818, kg, PRN Elevated BP, Start date: 10/03/12 18:14:00, Duration: 3 doses or times, Stop date: 10/04/12 0:00:00, SBP > 150 mmHg naloxone 0.2 mg, 0.5 mL, IVP No Longer [facility] 10/03[facility] [place] Route: IVP, Active 2012 Medical Drug form: INJ, Center Q5Min, PRN Narcotic Reversal, Start date: 10/03/12 18:04:00, Duration: 30 day, Stop date: 11/02/12 18:03:00 hydrALAZINE 20 mg, Route: [facility]P [facility] [address] IVP, ONCE, Active 2012 Medical [...] 15 mg, 30 mL, IV No Longer [place] [address] [facility] 0.5mg/mL [employer] Route: IV, [employer] Active 2012 Medical (15mg/30 mL) 15 mg Dose: 0.3 mg, Center [employer] Lockout: 15 minutes, 4 Hour Limit (In MG): 4.8, Drug Form: INJ, Continuous, Start date: 10/03/12 12:00:00, Stop date: 11/02/12 11:59:00 Saline Flush 0.9% 5 ml, Route: IVP No Longer [place] [address] [facility] IVP, Drug Form: Active 2012 Medical INJ, Dosing Center Weight 91.818, kg, PRN, PRN Line Flush, Start date: 10/03/12 11:42:00, Duration: 30 day, Stop date: 11/02/12 11:41:00 ondansetron 4 mg, 2 mL, IVP No Longer [place] [address] [facility] Route: IVP, Active 2012 Medical Drug form: INJ, Center Q8H, Dosing Weight 91.818, kg, PRN Nausea & Vomiting, Start date: 10/03/12 11:42:00, Duration: 30 day, Stop date: 11/02/12 11:41:00 acetaminophen 650 mg, 20.3 PO No Longer [place] [address] [facility] mL, Route: PO, Active 2012 Medical Drug form: LIQ, Center Q4H, Dosing Weight 91.818, kg, PRN Pain 1-3/Temp > 99.5 F, Start date: 10/03/12 11:42:00, Duration: 30 day, Stop date: 11/02/12 11:41:00 acetaminophen-hydr 1 tab, Route: PO No Longer [place] [address] [facility] ocodone 325 mg-10 PO, Drug Form: Active 2012 Medical mg oral tablet TAB, Dosing Center Weight 91.818, kg, Q4H, PRN Pain Score 4-6, Start date: 10/03/12 11:42:00, Duration: 30 day, Stop date: 11/02/12 11:41:00 amLODipine Substitution Active 10/03[facility] Allowed 2012 [facility] NS + KCL 20mEq/L 1,000 mL, Rate: IV No Longer [place] [facility] 1000ml (Premix) 70 ml/hr, Active 2012 Medical 1,000 mL Infuse over: Center 14.3 hr, Route: IV, kg, Total Volume: 1,000, Start date: 10/03/12 5:00:00, Duration: 1 day, Stop date: 10/04/12 4:59:00 cefazolin 2 gm, 100 mL, IVPB No Longer [facility] Route: IVPB, Active 2012 Medical Drug form: INJ, Center PRE OP, Start date: 10/03/12 5:00:00, Duration: 1 day, Stop date: 10/04/12 4:59:00 Vicodin HP 10 PO, PRN, PO Active 10/01[facility] mg-300 mg oral Substitution 2012 Medical tablet Allowed, Center Maintenance Dulcolax Laxative 1 supp, [place], [place] Active 10/01[facility] Daily, PRN, 5 2012 [facility] supp, Center constipation, Substitution Allowed, SUPP clonidine 0.1 mg PO, QID, prn PO Active [facility] 10/01[facility] oral tablet bp>160, 2012 Medical Substitution Center Allowedprn bp>160 Benicar HCT 12.5 1 tab, PO, PO Active 10/01[facility] mg-40 mg oral Daily, 30 tab, 2012 Medical tablet Substitution Center Allowed, Maintenance, TAB carvedilol 25 mg 25 mg, 1 tab, PO Active [facility] 10/01[facility] oral tablet PO, Q12H, 60 2012 Medical tab, Center Substitution Allowed, TAB Januvia 100 mg 100 mg, 1 tab, PO Active [facility] 10/01[facility] oral tablet PO, Daily, 30 2012 [facility] tab, Center Substitution Allowed, TAB Lantus 22 unit, SUB-Q, SUB-Q Active 10/01[facility] Bedtime, 2012 Medical Substitution Center Allowed glimepiride 4 mg 8 mg, 2 tab, PO Active 10/01[facility] oral tablet PO, Daily, 2012 Medical Substitution Center Allowed Allergies, Adverse Reactions, Alerts Substance Category Reaction Severity Reaction Status Date Comments Source type Reported NKFA Assertion Drug Active allergy [facility] Immunizations Immunization Date Given Site Status Last Updated Comments Source Results Order Name Results Value Reference Date Interpretation Comments Source Range CHEM PANEL Magnesium 1.8 mg/dL 1.8 - 2.4 01/16 Lv [facility] CHEM PANEL Phosphorus 2.4 mg/dL 2.5 - 4.5 01/16 [facility] CHEM PANEL CO2 30 meq/L 24 - 32 01/16 [facility] CHEM PANEL Glucose Lvl 240 mg/dL 70 - 99 01/16 [facility] CHEM PANEL Creatinine 0.80 mg/dL 0.50 - 01/16 Lvl 1.40 [facility] CHEM PANEL BUN 20 mg/dL 7 - 22 01/16 [facility] CHEM PANEL eGFR 73 01/16 Result [...] is not recommended in the following populations: [address] Individuals with unstable creatinine concentrations, including [...] Lvl 2.8 g/dL 3.5 - 5.0 01/16 [facility] CHEM PANEL Calcium Lvl 10.5 mg/dL 8.5 - 10.5 01/16 [facility] CHEM PANEL Potassium 4.3 meq/L 3.5 - 5.1 01/16 [facility] CHEM PANEL Chloride Lvl 107 meq/L 95 - 109 01/16 [facility] CHEM PANEL Sodium Lvl 143 meq/L 135 - 145 01/16 [facility] CHEM PANEL AGAP 10.3 meq/L 10.0 - 08 MH 20.0 [facility] HEMATOLOGY Lymphocytes 1.3 K/CMM 1.0 - 5.5 01/16 # /2015 [facility] HEMATOLOGY Segs-Bands # 4.4 K/CMM 1.5 - 8.1 08/ /2015 [facility] HEMATOLOGY Eosinophils 0.3 K/CMM 0.0 - 0.5 08/ MH # /2015 [facility] HEMATOLOGY Monocytes # 0.6 K/CMM 0.0 - 0.8 08/ [facility] HEMATOLOGY Basophils 0.5 % 0.0 - 1.0 08/ [facility] HEMATOLOGY Eosinophils 4.9 % 0.0 - 4.0 08/ [facility] HEMATOLOGY Monocytes 9.1 % 2.0 - 12.0 08/ [facility] HEMATOLOGY Lymphocytes 18.9 % 20.0 - 08 MH 40.0 [facility] HEMATOLOGY Segs 66.6 % 45.0 - 08 MH 75.0 [facility] HEMATOLOGY MPV 9.4 fL 7.4 - 10.4 01/16 [facility] HEMATOLOGY Platelet 168 K/CMM 133 - 450 08 [facility] HEMATOLOGY RDW 13.4 % 11.5 - 08 14.5 [facility] HEMATOLOGY MCHC 32.8 g/dL 32.0 - 08 36.0 [facility] HEMATOLOGY MCH 30.7 pg 27.0 - 08 31.0 [facility] HEMATOLOGY MCV 93.6 fL 80.0 - 01/16 98.0 [facility] HEMATOLOGY WBC 6.6 K/CMM 3.7 - 10.4 01/16 [facility] HEMATOLOGY Hct 41.0 % 36.0 - 01/16 48.0 [facility] HEMATOLOGY Hgb 13.4 g/dL 12.0 - 01/16 16.0 [facility] HEMATOLOGY RBC 4.38 M/CMM 4.20 - 08 5.40 /2015 [facility] SPECIAL Hgb A1C 10.3 % <=5.6 % 01/16 [facility] CHEM PANEL eGFR 81 01/14 Result Comment: The eGFR is calculated using the CKD-EPI formula. In most young, healthy individuals the eGFR will be >90 mL/ min/1.73m2. The eGFR declines with age. An eGFR of 60-89 may be normal in mL/min/1.7 /2016 some populations, particularly the elderly, for whom the CKD-EPI formula has not been extensively validated. Use of the eGFR is not recommended in the following populations: [address] Individuals with unstable creatinine concentrations, including [...] CHEM PANEL Creatinine 0.73 mg/dL 0.50 - 07 MH Lvl 1.40 [facility] CHEM PANEL AST 7 unit/L 0 - 37 01/14 [facility] CHEM PANEL Total 5.0 g/dL 6.4 - 8.4 01/14 MH [facility] CHEM PANEL Alk Phos 73 unit/L 39 - 136 01/14 [facility] CHEM PANEL ALT 29 unit/L 0 - 65 01/14 [facility] CHEM PANEL Bili Total 0.7 mg/dL 0.2 - 1.3 01/14 [facility] CHEM PANEL Albumin Lvl 2.7 g/dL 3.5 - 5.0 01/14 [facility] CHEM PANEL AGAP 10.9 meq/L 10.0 - 01/14 [facility] 20.0 [facility] [facility] CHEM PANEL Calcium Lvl 10.0 mg/dL 8.5 - 10.5 01/14 [facility] CHEM PANEL Glucose Lvl 208 mg/dL 70 - 99 01/14 [facility] CHEM PANEL Potassium 3.9 meq/L 3.5 - 5.1 01/14 MH Lvl [facility] CHEM PANEL BUN 20 mg/dL 7 - 22 01/14 [facility] CHEM PANEL Sodium Lvl 145 meq/L 135 - 145 01/14 [facility] CHEM PANEL Chloride Lvl 109 meq/L 95 - 109 01/14 [facility] CHEM PANEL CO2 29 meq/L 24 - 32 01/14 [facility] CHEM PANEL B/C Ratio 27 6 - 25 01/14 [facility] CHEM PANEL A/G Ratio 1.2 0.7 - 1.6 01/14 [facility] CHEM PANEL Globulin 2.3 g/dL 2.0 - 4.0 01/14 [facility] HEMATOLOGY Monocytes 11.7 % 2.0 - 12.0 01/14 [facility] HEMATOLOGY Segs-Bands # 4.9 K/CMM 1.5 - 8.1 01/14 [facility] HEMATOLOGY Basophils 0.4 % 0.0 - 1.0 01/14 [facility] HEMATOLOGY Lymphocytes 1.3 K/CMM 1.0 - 5.5 01/14 MH # [facility] HEMATOLOGY Macrocyte 1+ None Seen 01/14 [facility]* [facility] (01/15/16 4:17 AM) HEMATOLOGY Segs 67.7 % 45.0 - 01/14 MH 75.0 [facility] HEMATOLOGY Lymphocytes 17.4 % 20.0 - 01/14 MH 40.0 [facility] HEMATOLOGY Eosinophils 2.8 % 0.0 - 4.0 01/14 [facility] HEMATOLOGY Basophils # 0.0 K/CMM 0.0 - 0.2 01/14 [facility] HEMATOLOGY Eosinophils 0.2 K/CMM 0.0 - 0.5 01/14 MH [facility] HEMATOLOGY Monocytes # 0.9 K/CMM 0.0 - 0.8 01/14 [facility] HEMATOLOGY Platelet 149 K/CMM 133 - 450 01/14 [facility] HEMATOLOGY WBC 7.3 K/CMM 3.7 - 10.4 01/14 [facility] HEMATOLOGY Hct 39.8 % 36.0 - 01/14 MH 48.0 [facility] HEMATOLOGY Hgb 13.0 g/dL 12.0 - 01/14 MH 16.0 [facility] HEMATOLOGY RBC 4.23 M/CMM 4.20 - 01/14 MH 5.40 /2015 [facility] HEMATOLOGY MCHC 32.8 g/dL 32.0 - 01/14 MH 36.0 [facility] HEMATOLOGY MCV 94.0 fL 80.0 - 01/14 MH 98.0 [facility] HEMATOLOGY MCH 30.8 pg 27.0 - 01/14 MH 31.0 [facility] HEMATOLOGY RDW 13.5 % 11.5 - 01/14 MH 14.5 [facility] HEMATOLOGY MPV 9.6 fL 7.4 - 10.4 01/14 [facility] CHEM PANEL Glucose Lvl 133 mg/dL 70 - 99 01/13 [facility] CHEM PANEL BUN 15 mg/dL 7 - 22 01/13 [facility] CHEM PANEL AGAP 11.7 meq/L 10.0 - 01/13 MH 20.0 [facility] CHEM PANEL Calcium Lvl 10.1 mg/dL 8.5 - 10.5 01/13 [facility] CHEM PANEL Potassium 3.7 meq/L 3.5 - 5.1 01/13 MH Lvl /2015 [facility] CHEM PANEL Sodium Lvl 145 meq/L 135 - 145 01/13 [facility] CHEM PANEL CO2 28 meq/L 24 - 32 01/13 [facility] CHEM PANEL Chloride Lvl 109 meq/L 95 - 109 01/13 [facility] CHEM PANEL Creatinine 0.70 mg/dL 0.50 - 01/13 MH Lvl 1.40 [facility] acute hospital PANEL eGFR 86 01/13 Result Comment: The [...] is not recommended in the following populations: [address] Individuals with unstable creatinine concentrations, including [...] knee 2 views 01/12 - Views - [facility] DX DX HISTORY: Left knee pain status post fall; left knee effusion Read by : Humphrey Bangura MD Dictated Date/time: 01/13/16 17:47 Electronically [...] Spine lumbar LUMBAR SPINE 4 VIEWS 01/12 [facility] lumbar 2 or 2 or 3 views /2015 - [facility] 3 views DX DX [facility] Clinical History: 75-year-old female with low [...] of the left hip without contrast 01/12 [facility] contrast contrast MRI /2015 - [facility] HISTORY: Left hip pain status post fall; [...] Total 4.9 g/dL 6.4 - 8.4 01/12 [facility] CHEM PANEL Alk Phos 60 unit/L 39 - 136 01/12 [facility] CHEM PANEL Bili Total 0.4 mg/dL 0.2 - 1.3 01/12 [facility] CHEM PANEL ALT 22 unit/L 0 - 65 01/12 [facility] CHEM PANEL AST 12 unit/L 0 - 37 01/12 [facility] CHEM PANEL Albumin Lvl 2.7 g/dL 3.5 - 5.0 01/12 [facility] CHEM PANEL Globulin 2.2 g/dL 2.0 - 4.0 01/12 /2015 [facility] CHEM PANEL A/G Ratio 1.2 0.7 - 1.6 01/12 [facility] CHEM PANEL B/C Ratio 23 6 - 25 01/12 [facility] HEMATOLOGY RBC 4.18 M/CMM 4.20 - 01/12 MH 5.40 /2015 [facility] HEMATOLOGY WBC 6.7 K/CMM 3.7 - 10.4 01/12 [facility] HEMATOLOGY MPV 9.3 fL 7.4 - 10.4 01/12 [facility] HEMATOLOGY Platelet 159 K/CMM 133 - 450 01/12 [facility] HEMATOLOGY RDW 12.8 % 11.5 - 01/12 MH 14. [facility] HEMATOLOGY MCH 30.7 pg 27.0 - 01/12 MH 31.0 [facility] HEMATOLOGY MCV 93.8 fL 80.0 - 01/12 MH 98.0 [facility] HEMATOLOGY Hct 39.2 % 36.0 - 01/12 MH 48.0 [facility] HEMATOLOGY Hgb 12.8 g/dL 12.0 - 01/12 MH 16.0 [facility] HEMATOLOGY MCHC 32.8 g/dL 32.0 - 01/12 MH 36.0 [facility] Lymphocytes 21.4 % 20.0 - 01/12 MH 40.0 [facility] HEMATOLOGY Segs 64.1 % 45.0 - 01/12 MH 75.0 [facility] Eosinophils 3.1 % 0.0 - 4.0 01/12 [facility] HEMATOLOGY Monocytes 10.9 % 2.0 - 12.0 01/12 [facility] HEMATOLOGY Basophils 0.5 % 0.0 - 1.0 01/12 [facility] HEMATOLOGY Basophils # 0.0 K/CMM 0.0 - 0.2 01/12 [facility] HEMATOLOGY Eosinophils 0.2 K/CMM 0.0 - 0.5 01/12 MH [facility] HEMATOLOGY Monocytes # 0.7 K/CMM 0.0 - 0.8 01/12 [facility] HEMATOLOGY Lymphocytes 1.4 K/CMM 1.0 - 5.5 01/12 [facility] Segs-Bands # 4.3 K/CMM 1.5 - 8.1 01/12 /2015 [facility] Spine Spine lumbar EXAM: MRI LUMBAR SPINE WITHOUT CONTRAST 01/11 - lumbar wo wo contrast /2015 - [facility] contrast MRI DATE: 01/11/2016 10:08 PM [facility]T [facility] MRI Read by: Kimani Peñaloza MD Dictated [...] 1.8 mg/dL 1.8 - 2.4 01/10 Lvl [facility] CHEM PANEL Phosphorus 2.0 mg/dL 2.5 - 4.5 01/10 [facility] HEMATOLOGY Basophils # 0.0 K/CMM 0.0 - 0.2 01/10 [facility] HEMATOLOGY Macrocyte 1+ None [facility] (01/11/16 6:48 PM) HEMATOLOGY INR 0.99 0.85 - 01/10 1.17 [facility] HEMATOLOGY PTT 23.5 s 22.9 - 01/10 35.8 /2015 [facility] HEMATOLOGY PT 13.4 s 12.0 - 01/10 14.7 /2015 [facility] Chest 2 Chest 2 CLINICAL HISTORY: Abnormal chest sounds. 01/10 - views DX views DX - [facility] : 1940. Read by: Earl Wiggins [...] Spine 03/25 [facility] cervical 2 cervical - [place] or 3 view or 3 view DX [...] 09/17 - [facility] cervical 2 cervical - [place] or 3 views or 3 views DATE: [...] 03/19 - [facility] cervical 2 cervical - [place] or 3 views or 3 views This report was dictated by a Day Light Relief Operator/Fellow. I have personally reviewed the images as [...] 12/25 - [facility] cervical 2 cervical - [place] or 3 views or 3 views This report was dictated by a Day Light Relief Operator/Fellow. I have personally reviewed the images as [...] 11/22 - [facility] cervical 2 cervical - [place] or 3 views or 3 views This report was dictated by a Day Light Relief Operator/Fellow. I have personally reviewed the images as [...] Notify 10/06 NA [facility] GLUCOSE JENNIE/ /2012 [facility] BEDSIDE Gluc POC 308 mg/dL 70 - 99 10/06 HI 1Interpretive [facility] GLUCOSE [facility] Data: [facility] Upper Reportable Limit: 200 mg/dL. BEDSIDE Comment1 Notify 10/06 NA [facility] GLUCOSE JENNIE/ /2012 [facility] BEDSIDE Gluc POC 159 mg/dL 70 - 99 10/06 HI 2Interpretive [facility] GLUCOSE [facility] Data: [facility] Upper Reportable Limit: 200 mg/dL. CHEMISTRY AGAP 14.3 meq/L 10.0 - 10/06 Normal [facility] 20.0 [facility] CHEMISTRY eGFR 75 10/06 NA 4Result Comment: The eGFR is calculated using the CKD-EPI formula. In most young, healthy individuals the eGFR will be > 90 mL/min/1.73m2. The eGFR declines with age. An eGFR of 60-89 may be normal in [facility] mL/min/1.7 /2012 some populations, particularly the elderly, for whom the CKD-EPI formula has not been extensively validated. Use of the eGFR is not recommended in the following populations: [facility] Individuals with unstable creatinine concentrations, including patients [...] 139 meq/L 135 - 145 10/06 Normal [facility] CHEMISTRY Chloride Lvl 104 meq/L 95 - 109 10/06 Normal [facility] CHEMISTRY CO2 25 meq/L 24 - 32 10/06 Normal [facility] CHEMISTRY Calcium Lvl 10.7 mg/dL 8.5 - 10.5 10/06 HI [facility] CHEMISTRY Potassium 4.3 meq/L 3.5 - 5.1 10/06 Normal [facility] CHEMISTRY Glucose Lvl 262 mg/dL 70 - 99 10/06 [facility] 6Interpretive Data: Adult reference range values reflect the clinical guidelines of the [place] [employer]. [facility] CHEMISTRY Creatinine 0.8 mg/dL 0.5 - 1.4 10/06 Normal [facility] CHEMISTRY BUN 20 mg/dL 7 - 22 10/06 Normal [facility] HEMATOLOGY Hgb 14.0 g/dL 12.0 - 10/06 Normal [facility] 16.0 [facility] HEMATOLOGY Hct 42.5 % 36.0 - 10/06 Normal [facility] 48.0 [facility] HEMATOLOGY MCV 92.3 fL 81.0 - 10/06 Normal [facility] 99.0 [facility] HEMATOLOGY MCH 30.5 pg 27.0 - 10/06 Normal [facility] 31.0 [facility] HEMATOLOGY MCHC 33.0 g/dL 32.0 - 10/06 Normal [facility] 36.0 [facility] HEMATOLOGY RDW 14.6 % 11.5 - 10/06 HI [facility] 14.5 [facility] HEMATOLOGY Platelet 215 K/CMM 133 - 450 10/06 Normal [facility] HEMATOLOGY MPV 10.0 fL 7.4 - 10.4 10/06 Normal [facility] HEMATOLOGY RBC 4.60 M/CMM 4.20 - 10/06 Normal [place] 5.40 /2012 [facility] HEMATOLOGY WBC 13.0 K/CMM 3.7 - 10.4 10/06 [facility] BEDSIDE Comment1 Notify 10/06 [facility] GLUCOSE RN/MD /2012 [facility] BEDSIDE Gluc POC 244 mg/dL 70 - 99 10/06 [facility] 3Interpretive [facility] GLUCOSE [facility] Data: [facility] Upper Reportable Limit: 200 mg/dL. CHEMISTRY Magnesium 2.0 mg/dL 1.8 - 2.4 10/05 Normal [facility] Lvl [facility] Microbiolog Culture: 10/04 [facility] y Urine /2012 [facility] URINALYSIS UA <=1.0 0.1 - 1.0 10/04 [facility] Urobilinogen mg/dL Medical
*NA*< Center br/>(10/04 01:52:38) <sup> </sup> URINALYSIS UA Color Yellow Yellow 10/04 [facility] [place] (10/04/2012 01:52:38) URINALYSIS UA Bacteria Occasional /HPF None Seen 10/04 [facility] *NA* Center (10/04/2012 01:52:38) URINALYSIS UA Sq Epi Occasional /LPF Few 10/04 [facility] (10/04/2012 01:52:38) URINALYSIS UA RBC 6 /HPF 0 - 2 10/04 [facility] URINALYSIS UA Leuk Est Small Negative 10/04 [facility] (10/04/2012 01:52:38) URINALYSIS UA WBC 12 /HPF 0 - 5 10/04 [facility] URINALYSIS UA Protein 10 mg/dL Negative 10/04 [facility]* Center (10/04/2012 01:52:38) URINALYSIS UA pH 5.0 5.0 - 8.0 10/04 Normal [facility] URINALYSIS UA Spec Grav 1.022 <=1.030 10/04 Normal [facility] URINALYSIS UA Turbidity Slight Clear 10/04 [facility] (10/04/2012 01:52:38) URINALYSIS UA Nitrite Negative Negative 10/04 Normal [facility] (10/04/2012 01:52:38) Center URINALYSIS UA Blood Small Negative 10/04 [facility] *ABN* Center (10/04/2012 01:52:38) URINALYSIS UA Bili Negative Negative 10/04 [facility] (10/04/2012 01:52:38) URINALYSIS UA Ketones Negative mg/dL Negative 10/04 [facility] [place] (10/04/2012 01:52:38) URINALYSIS UA Glucose 30 mg/dL Negative 10/04 [facility]* [place] (10/04/2012 01:52:38) CHEMISTRY Phosphorus 3.5 mg/dL 2.5 - 4.5 10/04 Normal [facility] CHEMISTRY AGAP 13.4 meq/L 10.0 - 10/04 Normal [facility] 20.0 [facility] CHEMISTRY Glucose Lvl 181 mg/dL 70 - 99 10/04 [facility] 7Interpretive Data: Adult reference range values reflect the clinical guidelines of the [place] [employer]. [facility] CHEMISTRY Creatinine 0.9 mg/dL 0.5 - 1.4 10/04 Normal [facility] CHEMISTRY BUN 17 mg/dL 7 - 22 10/04 Normal [facility] CHEMISTRY Sodium Lvl 140 meq/L 135 - 145 10/04 Normal [facility] CHEMISTRY Chloride Lvl 105 meq/L 95 - 109 10/04 Normal [facility] CHEMISTRY Calcium Lvl 9.7 mg/dL 8.5 - 10.5 10/04 Normal [facility] CHEMISTRY Potassium 4.4 meq/L 3.5 - 5.1 10/04 Normal [facility] CHEMISTRY CO2 26 meq/L 24 - 32 10/04 Normal [facility] CHEMISTRY eGFR 65 10/04 NA 5Result Comment: The eGFR is calculated using the CKD-EPI formula. In most young, healthy individuals the eGFR will be > 90 mL/min/1.73m2. The eGFR declines with age. An eGFR of 60-89 may be normal in [facility] mL/min/1. some populations, particularly the elderly, for whom the CKD-EPI formula has not been extensively validated. Use of the eGFR is not recommended in the following populations: [facility] Individuals with unstable creatinine concentrations, including patients [...] 1.5 mg/dL 1.8 - 2.4 10/04 LOW [place] Lvl /2012 [facility] HEMATOLOGY RBC 4.85 M/CMM 4.20 - 10/04 Normal [place] 5.40 /2012 [facility] HEMATOLOGY WBC 9.2 K/CMM 3.7 - 10.4 10/04 Normal [facility] HEMATOLOGY Hgb 14.9 g/dL 12.0 - 10/04 Normal [place] 16.0 /2012 [facility] HEMATOLOGY MCHC 33.3 g/dL 32.0 - 10/04 [facility] [place] 36.0 [facility] HEMATOLOGY MCH 30.7 pg 27.0 - 10/04 [facility] [place] 31.0 [facility] HEMATOLOGY Hct 44.9 % 36.0 - 10/04 [facility] [place] 48.0 /2012 [facility] HEMATOLOGY MCV 92.4 fL 81.0 - 10/04 [facility] 99.0 [facility] HEMATOLOGY RDW 14.5 % 11.5 - 10/04 [facility] [place] 14.5 [facility] HEMATOLOGY Platelet 213 K/CMM 133 - 450 10/04 Normal [facility] HEMATOLOGY MPV 9.5 fL 7.4 - 10.4 10/04 Normal [facility] HEMATOLOGY Segs-Bands # 7.7 K/CMM 1.5 - 8.1 10/04 Normal [facility] HEMATOLOGY Basophils 0.3 % 0.0 - 1.0 10/04 Normal [facility] HEMATOLOGY Monocytes # 0.6 K/CMM 0.0 - 0.8 10/04 Normal [facility] HEMATOLOGY Lymphocytes 0.9 K/CMM 1.0 - 5.5 10/04 LOW [place] # /2012 [facility] HEMATOLOGY Lymphocytes 9.5 % 20.0 - 10/04 LOW [place] 40.0 /2012 [facility] HEMATOLOGY Segs 84.1 % 45.0 - 10/04 HI MH [place] 75.0 /2012 [facility] HEMATOLOGY Monocytes 6.0 % 2.0 - 12.0 10/04 Normal [facility] HEMATOLOGY Eosinophils 0.1 % 0.0 - 4.0 10/04 Normal [facility] CHEMISTRY POC A Glu 152 mg/dL 70 - 99 10/03 HI [facility] CHEMISTRY POC A LA 0.7 mMol/L 0.5 - 2.2 10/03 Normal [facility] CHEMISTRY POC A HCO3 24 mMol/L 22 - 10/03 Normal [facility] CHEMISTRY POC A BE -1 mMol/L -2-2 - 2 10/03 Normal [facility] CHEMISTRY POC A Hct 35.0 % 36.0 - 10/03 LOW [facility] 48.0 [facility] CHEMISTRY POC A O2 Sat 96.0 % 95.0 - 10/03 Normal [facility] 100.0 [facility] CHEMISTRY POC A K 3.4 meq/L 3.5 - 5.1 10/03 LOW [facility] CHEMISTRY POC A Na 138 meq/L 135 - 145 10/03 Normal [facility] CHEMISTRY POC A PCO2 40 mm[Hg] 35 - 45 10/03 Normal [facility] CHEMISTRY POC A Ca Ion 1.26 1.16 - 10/03 Normal [place] mMol/L 1.30 [facility] CHEMISTRY POC A Source ART 10/03 NA [facility] CHEMISTRY POC A Temp 37.0 Kylah 10/03 NA [facility] CHEMISTRY POC A PO2 85 mm[Hg] 80 - 100 10/03 Normal [facility] CHEMISTRY POC A pH 7.39 7.35 - 10/03 Normal [facility] 7.45 [facility] CHEMISTRY POC A PCO2 44 mm[Hg] 35 - 45 10/03 Normal [facility] CHEMISTRY POC A BE 1 mMol/L -2-2 - 2 10/03 Normal [facility] CHEMISTRY POC A HCO3 26 mMol/L 22 - 26 10/03 Normal [facility] CHEMISTRY POC A PO2 161 mm[Hg] 80 - 100 10/03 HI [facility] CHEMISTRY POC A Na 137 meq/L 135 - 145 10/03 Normal [facility] CHEMISTRY POC A Ca Ion 1.29 1.16 - 10/03 Normal [facility] [place] mMol/L 1.30 [facility] CHEMISTRY POC A O2 Sat 99.0 % 95.0 - 10/03 Normal [place] 100.0 Medical Center CHEMISTRY POC A K 3.9 meq/L 3.5 - 5.1 10/03 Normal [facility] Center CHEMISTRY POC A Hct 38.0 % 36.0 - 10/03 Normal [facility] 48.0 Medical Center CHEMISTRY POC A Source ART 10/03 NA [facility] Center CHEMISTRY POC A pH 7.38 7.35 - 10/03 Normal [facility] 7.45 [facility] Center CHEMISTRY POC A Temp 37.0 Kylah 10/03 NA [facility] Center CHEMISTRY POC A Glu 150 mg/dL 70 - 99 10/03 HI [facility] Center CHEMISTRY POC A LA 1.1 mMol/L 0.5 - 2.2 10/03 Normal [facility] BLOOD BANK ABO/Rh A NEG 10/03 Unknown [facility] RESULTS [facility] BLOOD BANK Antibody Negative 10/03 Normal [facility] RESULTS [facility] (10/03/2012 09:25:00) Center Vital Signs Vital Sign Value Date Comments Source Temperature Oral (F) 97.5 F 02/14/2016 [facility] Heart Rate 65 02/14/2016 [facility] Respitory Rate 18 02/14/2016 [facility] Systolic (mm Hg) 122 02/14/2016 [facility] Diastolic (mm Hg) 54 02/14/2016 [facility] Systolic (mm Hg) 117 02/14/2016 [facility] Diastolic (mm Hg) 71 02/14/2016 [facility] Respitory Rate 18 02/14/2016 [facility] Temperature Oral (F) 97.6 F 02/14/2016 [facility] Heart Rate 61 02/14/2016 [facility] Temperature Oral (F) 97.8 F 02/14/2016 [facility] Respitory Rate 18 02/14/2016 [facility] Heart Rate 70 02/14/2016 [facility] Systolic (mm Hg) 171 02/14/2016 [facility] Diastolic (mm Hg) 82 02/14/2016 [facility] Weight 89.091 02/10/2016 [facility] Weight 89.545 02/08/2016 [facility] BMI Calculated 32.85 02/08/2016 [facility] Height 165.1 cm 02/08/2016 [facility] Weight 89.545 02/08/2016 [facility] Height 172.72 cm 02/08/2016 [facility] BMI Calculated 30.02 02/08/2016 [facility] Respitory Rate 20 01/19/2016 [facility] Systolic (mm Hg) 131 01/19/2016 [facility] Diastolic (mm Hg) 76 01/19/2016 [facility] Temperature Oral (F) 98.1 F 01/19/2016 [facility] Heart Rate 73 01/19/2016 [facility] Weight 91.864 01/19/2016 [facility] Temperature Oral (F) 99.5 F 01/19/2016 [facility] Heart Rate 59 01/19/2016 [facility] Respitory Rate 20 01/19/2016 [facility] Systolic (mm Hg) 129 01/19/2016 [facility] Diastolic (mm Hg) 68 01/19/2016 [facility] Systolic (mm Hg) 157 01/19/2016 [facility] Diastolic (mm Hg) 78 01/19/2016 [facility] Heart Rate 61 01/19/2016 [facility] Respitory Rate 16 01/19/2016 [facility] Temperature Oral (F) 97.3 F 01/19/2016 [facility] BMI Calculated 35.95 01/11/2016 [facility] Weight 97.983 01/11/2016 [facility] Height 165.1 cm 01/11/2016 [facility] Respitory Rate 33 10/06/2012 [facility] Systolic (mm Hg) 131 10/06/2012 [facility] Diastolic (mm Hg) 53 10/06/2012 [facility] Respitory Rate 16 10/06/2012 [facility] Systolic (mm Hg) 159 10/06/2012 [facility] Diastolic (mm Hg) 44 10/06/2012 [facility] Systolic (mm Hg) 146 10/06/2012 [facility] Diastolic (mm Hg) 56 10/06/2012 [facility] Respitory Rate 19 10/06/2012 [facility] Temperature Oral (F) 96.3 F 10/06/2012 [facility] Temperature Oral (F) 97.9 F 10/06/2012 [facility] Temperature Oral (F) 97.6 F 10/05/2012 [facility] Weight 91.818 10/03/2012 [facility] Height 165.1 cm 10/03/2012 [facility] Heart Rate 55 10/03/2012 [facility] Heart Rate 64 10/01/2012 [facility] Height 165.1 cm 10/01/2012 [facility] Weight 91.818 10/01/2012 [facility] Encounters Location Location Encounter Encounter Reason Attending ADM DC Status Source Details Type Number For Provider Date Date Visit [facility] Inpatient [id number] CERVICAL KERON 10/03 10/06 Active [place] [address] [facility] [place] CERVICAL DISC DISPLACE MENT WITH M [facility] Outpt Diag [id number] _MAPID:[id number] Keron 09/17 09/18 [facility] [id number] [id number] [place] [facility] Outpt Diag [id number] Keron 03/25 03/26 [facility] [place] [facility] [id number] [place] 12/01 Active [facility] [id number] [place] 12/14 Active [facility] [id number] KATALINA 12/14 Active [facility] 2 [facility] [id number] [place] 12/14 [facility] 3 [facility] Pre Admit [id number] Joao 01/10 01/10 [place] 7 [facility] Inpatient [id number] Joao 01/10 01/18 [place] 8 [facility] Outpatient [id number] KATALINA 01/16 Active [facility] [place] Outpatient [id number] [place] 02/07 Active [facility] Inpatient [id number] [place] [facility] 02/07 02/14 [facility] Outpatient [id number] [place] 03/09 Active [facility] [id number] [place] 03/27 Active [facility] [place] Outpatient [id number] [place] 04/21 Active [facility] [place] [id number] [place] 06/30 [facility] [place] Procedures Procedure Code Date Perfomer Comments Source Operation [id number] 1abscess [facility] <sup>1</sup> [facility] Cervical [id number] [facility] discectomy [facility] Knee [id number] bilateral [facility] replacement<sup> [facility] 1</sup> Operation<sup>2< [id number] abscess [facility] /sup> drainage/ [facility]-rectal
--- OUTSIDE RECORDS SUMMARY | 2018-05-26 18:48 | XMS REPORT | CCD ---
:1940 Author Organization [facility] Outpatient Imaging [place] Care Team Providers Name Role Phone Keron Thomas Consulting Provider Allergies, Adverse Reactions, Alerts Substance Reaction Status NKDA Active Problem List Condition Effective Dates Status Diabetes mellitus Resolved GERD - Gastro-esophageal reflux disease Resolved HLD - Hyperlipidemia Resolved HTN - Hypertension Resolved Neuropathy Resolved
--- OUTSIDE RECORDS SUMMARY | 2018-05-26 18:48 | XMS REPORT | CCD ---
:1940 Author Organization [facility] Outpatient Imaging [place] Care Team Providers Name Role Phone Keron Thomas Consulting Provider Allergies, Adverse Reactions, Alerts Substance Reaction Status NKDA Active Problem List Condition Effective Dates Status Diabetes mellitus Resolved GERD - Gastro-esophageal reflux disease Resolved HLD - Hyperlipidemia Resolved HTN - Hypertension Resolved Neuropathy Resolved
--- OUTSIDE RECORDS SUMMARY | 2018-05-26 18:48 | XMS REPORT | CCD ---
:1940 Author Organization [facility] Care Team Providers Name Role Phone Keron [...] date: 10/04/12 0:00:00, SBP > 150 mmHg [place] 10/325 oral tablet 1-2 tab, PO, Q4-6H, [...] date: 11/02/12 9:00:00 Dulcolax Laxative 1 supp, AL, Daily, 10/01/2012 Ordered PRN, 5 supp, constipation, [...] amLODipine Substitution Allowed 10/03/2012 Ordered HYDROmorphone 0.5mg/mL LOCK SETTER 15 mg, 30 mL, Route: 10/03/2012 10/04/2012 Discontinued (15mg/30 mL) 15 mg IV, LOCK SETTER Dose: 0.3 mg, LOCK SETTER Lockout: 15 minutes, 4 Hour Limit (In [...] values reflect the clinical guidelines of the [place] [employer].7Interpretive Data: Adult reference range values reflect the clinical guidelines of the [place] [employer].HEMATOLOGY Most recent to oldest [Reference [...]
--- OUTSIDE RECORDS SUMMARY | 2018-05-26 18:49 | XMS REPORT | CCD ---
:1940 Author Organization [facility] Outpatient Imaging [place] Care Team Providers Name Role Phone Keron Thomas Consulting Provider Allergies, Adverse Reactions, Alerts Substance Reaction Status NKDA Active Problem List Condition Effective Dates Status Diabetes mellitus Resolved GERD - Gastro-esophageal reflux disease Resolved HLD - Hyperlipidemia Resolved HTN - Hypertension Resolved Neuropathy Resolved
[2018-05-26] MEDS ORDERED: TRAMADOL HCL 50 MG TAB ONE (20:05)
[2018-05-26 20:15] LABS: Urine Blood NEGATIVE (NEG); Urine Glucose NEGATIVE (NEG); Urine Protein NEGATIVE (NEG); Urine Specific Gravity 1.015 (1.005-1.030)
--- NOTE | 2018-05-26 20:22 | ER ---
Nurse's Notes [facility] Name: Kate Love Age: 77 yrs Sex: Female : 1940 Arrival Date: 05/26/2018 Time: 18:40 Bed 23 Private MD: Joao Paz Diagnosis: Sciatica, right side Presentation: 05/26 18:56 Presenting complaint: Patient states: I started having low back pain last night and I ed1 am afraid I may have a bladder infection again. Transition of care: patient was not received from another setting of care. Onset of symptoms was May 25, 2018. Risk Assessment: Do you want to hurt yourself or someone else? Patient reports no desire to harm self or others. Initial Sepsis Screen: Does the patient meet any 2 criteria? No. Patient's initial sepsis screen is negative. Does the patient have a suspected source of infection? No. Patient's initial sepsis screen is negative. Care prior to arrival: None. 18:56 Method Of Arrival: Ambulatory ed1 19:05 Acuity: AURELIA 3 bb Triage Assessment: 19:01 General: Appears uncomfortable, Behavior is calm, cooperative. Pain: Complains of pain ed1 in low back area Pain radiates to right leg Pain currently is 4 out of 10 on a pain scale. Quality of pain is described as aching, Pain began 1 day ago. Is continuous. EENT: No signs and/or symptoms were reported regarding the EENT system. Neuro: Level of Consciousness is awake, alert, obeys commands, Oriented to person, place, time, situation. Cardiovascular: Denies chest pain, Heart tones S1 S2 present. Respiratory: Airway is patent Respiratory effort is even, unlabored, Respiratory pattern is regular, symmetrical, Breath sounds are clear bilaterally. Denies cough, shortness of breath. GI: No signs and/or symptoms were reported involving the gastrointestinal system. : Denies burning with urination, urinary frequency, urgency. Derm: Skin is pink, warm \T\ dry. Musculoskeletal: Circulation, motion, and sensation intact. Capillary refill < 3 seconds, in bilateral fingers. Range of motion: intact in all extremities, Swelling absent. Historical: - Allergies: 19:01 No Known Allergies; ed1 - Home Meds: 19: amlodipine 10 mg tab 1 tab once daily [Active]; Tradjenta 5 mg Oral tab 1 tab once ed1 daily [Active]; carvedilol 12.5 mg Oral tab 2 times per day [Active]; irbesartan 300 mg oral tab 1 tab once daily [Active]; aspirin 81 mg Oral TbEC 1 tab once daily [Active]; clonidine HCl 0.1 mg Oral Tb12 as needed for Hypertension [Active]; furosemide 20 mg Oral tab 1 tab once daily [Active]; spironolactone 25 mg Oral tab 1 tab once daily [Active]; Vitamin D Oral 50,000 unit weekly [Active]; Soliqua 54 unit before breakfast [Active]; Breo Ellipta 100-25 mcg/dose inhalation dsdv 1 puff once daily [Active]; glimepiride 4 mg Oral tab 2 tab once daily [Active]; irbesartan 300 mg Oral tab 1 tab once daily [Active]; Levemir subcutaneous [Active]; - PMHx: 19:01 Diabetes - IDDM; Hyperlipidemia; Hypertension; ed1 - Immunization history:: Adult Immunizations up to date, Flu vaccine is up to date. - Social history:: Smoking status: Patient/guardian denies using tobacco, never smoked. - Ebola Screening: : Patient negative for fever greater than or equal to 101.5 degrees Fahrenheit, and additional compatible Ebola Virus Disease symptoms Patient denies exposure to infectious person Patient denies travel to an Ebola-affected area in the 21 days before illness onset No symptoms or risks identified at this time. Screenin:27 Abuse screen: Denies threats or abuse. Denies injuries from another. Nutritional ed1 screening: No deficits noted. Tuberculosis screening: No symptoms or risk factors identified. Fall Risk None identified. Assessment: 19:05 Reassessment: I agree with triage assessment. bb 20:27 Reassessment: Patient appears in no apparent distress at this time. No changes from ed1 previously documented assessment. Patient and/or family updated on plan of care and expected duration. Pain level reassessed. Patient is alert, oriented x 3, equal unlabored respirations, skin warm/dry/pink. Patient states symptoms have not improved. Vital Signs: 19:01 BP 166 / 96; Pulse 86; Resp 18; Temp 98.0(O); Pulse Ox 100% on R/A; Weight 99.79 kg ed1 (R); Height 5 ft. 5 in. (165.10 cm) (R); Pain 4/10; 19:30 BP 141 / 64; Pulse 66; Resp 16 S; Pulse Ox 94% on R/A; rv 20:00 BP 137 / 61; Pulse 66; Resp 15 S; Pulse Ox 94% on R/A; rv 19:01 Body Mass Index 36.61 (99.79 kg, 165.10 cm) ed1 ED Course: 18:40 Patient arrived in ED. rg4 18:41 Joao Paz MD is Private Physician. rg4 18:56 Dee Montalvo LVN is Primary Nurse. ed1 19:01 Arm band placed on right wrist. ed1 19:05 Triage completed. bb 19:09 Reynaldo Hare MD is Attending Physician. tw4 20:21 Joao Paz MD is Referral Physician. tw4 20:27 Patient has correct armband on for positive identification. ed1 20:27 No provider procedures requiring assistance completed. Patient did not have IV access ed1 during this emergency room visit. Administered Medications: 19:57 Drug: traMADol 50 mg Route: PO; ed1 20:27 Follow up: Response: Pain is unchanged, physician notified ed1 20:27 Drug: [place] 5 mg-325 mg 1 tabs Route: PO; ed1 20:27 Follow up: Response: Medication administered at discharge. ed1 Outcome: 20:22 Discharge ordered by . tw4 20:27 Discharged to home ambulatory, with family. ed1 20:27 Condition: good 20:27 Discharge instructions given to patient, Instructed on discharge instructions, follow up and referral plans. medication usage, Demonstrated understanding of instructions, follow-up care, medications, Prescriptions given X 2. 20:28 Patient left the ED. ed1 Signatures: Peyton Quezada, RN RN bb Dee Montalvo LVN BOTTLE INSPECTOR ed1 Indira Mensah rg4 Reynaldo Hare MD MD 4 Nitin Briones, RN RN rv
--- NOTE | 2018-05-26 20:23 | EDPHYS ---
Physician Documentation [facility] Name: Kate Love Age: 77 yrs Sex: Female : 1940 Arrival Date: 05/26/2018 Time: 18:40 Bed 23 Private MD: Joao Paz ED Physician Reynaldo Hare HPI: 05/26 20:25 This 77 yrs old Female presents to ER via Ambulatory with complaints of Leg tw4 Swelling, Low Back Pain. 20:25 The patient presents with pain that is chronic, with no known mechanism of injury. The tw4 symptoms are located in the low back. The pain does not radiate. The problem was sustained during a fall. Onset: The symptoms/episode began/occurred yesterday. Modifying factors: The patient symptoms are alleviated by nothing, the patient symptoms are aggravated by any movement. Severity of symptoms: At their worst the symptoms were. The patient has not experienced similar symptoms in the past. Historical: - Allergies: 19:01 No Known Allergies; ed1 - Home Meds: 19:01 amlodipine 10 mg tab 1 tab once daily [Active]; Tradjenta 5 mg Oral tab 1 tab once ed1 daily [Active]; carvedilol 12.5 mg Oral tab 2 times per day [Active]; irbesartan 300 mg oral tab 1 tab once daily [Active]; aspirin 81 mg Oral TbEC 1 tab once daily [Active]; clonidine HCl 0.1 mg Oral Tb12 as needed for Hypertension [Active]; furosemide 20 mg Oral tab 1 tab once daily [Active]; spironolactone 25 mg Oral tab 1 tab once daily [Active]; Vitamin D Oral 50,000 unit weekly [Active]; Soliqua 54 unit before breakfast [Active]; Breo Ellipta 100-25 mcg/dose inhalation dsdv 1 puff once daily [Active]; glimepiride 4 mg Oral tab 2 tab once daily [Active]; irbesartan 300 mg Oral tab 1 tab once daily [Active]; Levemir subcutaneous [Active]; - PMHx: 19:01 Diabetes - IDDM; Hyperlipidemia; Hypertension; ed1 - Immunization history:: Adult Immunizations up to date, Flu vaccine is up to date. - Social history:: Smoking status: Patient/guardian denies using tobacco, never smoked. - Ebola Screening: : Patient negative for fever greater than or equal to 101.5 degrees Fahrenheit, and additional compatible Ebola Virus Disease symptoms Patient denies exposure to infectious person Patient denies travel to an Ebola-affected area in the 21 days before illness onset No symptoms or risks identified at this time. ROS: 20:25 Constitutional: Negative for fever, chills, and weight loss, Eyes: Negative for injury, tw4 pain, redness, and discharge, Cardiovascular: Negative for chest pain, palpitations, and edema, Respiratory: Negative for shortness of breath, cough, wheezing, and pleuritic chest pain, Abdomen/GI: Negative for abdominal pain, nausea, vomiting, diarrhea, and constipation. 20:25 Neuro: Negative for headache, weakness, numbness, tingling, and seizure, Psych: Negative for depression, anxiety, suicide ideation, homicidal ideation, and hallucinations. 20:25 Back: Positive for pain at rest, pain with movement, Negative for injury or acute deformity, decreased range of motion. Exam: 20:25 Constitutional: This is a well developed, well nourished patient who is awake, alert, tw4 and in no acute distress. Head/Face: Normocephalic, atraumatic. Chest/axilla: Normal chest wall appearance and motion. Nontender with no deformity. No lesions are appreciated. Cardiovascular: Regular rate and rhythm with a normal S1 and S2. No gallops, murmurs, or rubs. Normal PMI, no JVD. No pulse deficits. Respiratory: Lungs have equal breath sounds bilaterally, clear to auscultation and percussion. No rales, rhonchi or wheezes noted. No increased work of breathing, no retractions or nasal flaring. Abdomen/GI: Soft, non-tender, with normal bowel sounds. No distension or tympany. No guarding or rebound. No evidence of tenderness throughout. MS/ Extremity: Pulses equal, no cyanosis. Neurovascular intact. Full, normal range of motion. Neuro: Awake and alert, GCS 15, oriented to person, place, time, and situation. Cranial nerves II-XII grossly intact. Motor strength 5/5 in all extremities. Sensory grossly intact. Cerebellar exam normal. Normal gait. Psych: Awake, alert, with orientation to person, place and time. Behavior, mood, and affect are within normal limits. 20:25 Back: pain, that is very mild, of the right low back, ROM is normal. 20:25 Back: vertebral tenderness, is not appreciated. Vital Signs: 19:01 BP 166 / 96; Pulse 86; Resp 18; Temp 98.0(O); Pulse Ox 100% on R/A; Weight 99.79 kg ed1 (R); Height 5 ft. 5 in. (165.10 cm) (R); Pain 4/10; 19:30 BP 141 / 64; Pulse 66; Resp 16 S; Pulse Ox 94% on R/A; rv 20:00 BP 137 / 61; Pulse 66; Resp 15 S; Pulse Ox 94% on R/A; rv 19:01 Body Mass Index 36.61 (99.79 kg, 165.10 cm) ed1 MDM: 19:09 Patient medically screened. tw4 20:25 Differential diagnosis: arthritis, strain, Herniated disc UTI. Data reviewed: vital tw4 signs, nurses notes. 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 Counseling: I had a detailed discussion with the patient and/or guardian regarding: the historical points, exam findings, and any diagnostic results supporting the discharge/admit diagnosis. Medication response: tramadol. Special discussion: I discussed with the patient/guardian in detail that at this point there is no indication for admission to the hospital. It is understood, however, that if the symptoms persist or worsen the patient needs to return immediately for re-evaluation. 05/26 19:18 Order name: Urine Dipstick--Ancillary (enter results) ag4 Administered Medications: 19:57 Drug: traMADol 50 mg Route: PO; ed1 20:27 Follow up: Response: Pain is unchanged, physician notified ed1 20:27 Drug: [place] 5 mg-325 mg 1 tabs Route: PO; ed1 20:27 Follow up: Response: Medication administered at discharge. ed1 Disposition: 05/26/18 20:22 Discharged to Home. Impression: Sciatica, right side. - Condition is Stable. - Discharge Instructions: Sciatica, Radicular Pain, Back Exercises. - Prescriptions for Cyclobenzaprine 10 mg Oral Tablet - take 1 tablet by ORAL route every 8 hours As needed; 30 tablet. Tramadol 50 mg Oral Tablet - take 1 tablet by ORAL route every 8 hours as needed; 12 tablet. - Medication Reconciliation Form, Thank You Letter, Antibiotic Education, Prescription Opioid Use form. - Follow up: Joao Paz MD; When: Upon discharge from the Emergency Department; Reason: If symptoms return, Recheck today's complaints, Continuance of care. - Problem is new. - Symptoms have improved. Signatures: Dispatcher [employer] EDMS Dee Montalvo, SUPERINTENDENT OPERATING SUPERINTENDENT OPERATING ed1 Reynaldo Hare MD MD tw4 Corrections: (The following items were deleted from the chart) 20:28 20:22 05/26/2018 20:22 Discharged to Home. Impression: Sciatica, right side. Condition ed1 is Stable. Forms are Medication Reconciliation Form, Thank You Letter, Antibiotic Education, Prescription Opioid Use. Follow up: Joao Paz; When: Upon discharge from the Emergency Department; Reason: If symptoms return, Recheck today's complaints, Continuance of care. Problem is new. Symptoms have improved. tw4
[2018-05-26 20:32] VITALS: TEMP 98
[2018-05-26] MEDS ORDERED: HYDROCODONE/APAP 5/325 MG TAB ONE ×2 (20:33→20:34)
[2018-05-26 20:35] VITALS: O2SAT 94
[2018-05-26 20:37] VITALS: BP 137/61
== END 2018-05-26 20:28 | disposition home or self-care (01) ==
LOC: ER 18:38
DX: M54.31 Sciatica, right side (principal); I10 Essential (primary) hypertension; E78.5 Hyperlipidemia, unspecified; E11.9 Type 2 diabetes mellitus without complications; Z79.82 Long term (current) use of aspirin
CPT/HCPCS: 81003; 99283

== ENCOUNTER 2018-05-31 21:09 | Emergency (ER) | payer OTHER ==
--- OUTSIDE RECORDS SUMMARY | 2018-05-31 21:15 | XMS REPORT | Continuity of Care Document ---
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 CERVICAL Active [facility] RADICULITIS, [address] [place] [address] CERVICAL DISC [facility] Center Diabetes mellitus Resolved Problem 03/21/2013 PHYLLIS Butler,[facility] GERD - Resolved Problem 03/21/2013 PHYLLIS Gastro-esophageal Luke, reflux disease [facility] HLD - Hyperlipidemia Resolved Problem 03/21/2013 PHYLLIS Butler,[facility] HTN - Hypertension Resolved Problem 03/21/2013 [facility] Neuropathy Resolved Problem 03/21/2013 [facility] 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 [facility] GERD - Active Problem 02/17/2016 OPID Gastro-esophageal Luke reflux disease [facility] HLD - Hyperlipidemia Active Problem 02/17/2016 [facility]N - Hypertension Active Problem 02/17/2016 [facility] Low back pain Active Problem 02/17/2016 [facility] Lumbar radiculopathy Active Problem 02/17/2016 [facility] Lumbar spondylosis Active Problem 02/17/2016 [facility] Neuropathy Active Problem 02/17/2016 [facility] Obesity Active Problem 02/17/2016 [facility] Lumbar stenosis Active Problem 02/17/2016 [facility] Spondylolisthesis of Active Problem 02/17/2016 lumbar region [facility] Disc disorder of Active Problem 02/17/2016 lumbar region [facility] 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 [facility] canal [facility] BRACHIAL NEURITIS Active [facility] CERV DISC DIS W Active [facility] ILLNESS, UNSPECIFIED Active [facility] Medications Medication Details Route Status Patient Ordering Order Source Instructions Provider Date Lipitor 5 mg, 0.5 tab, No Longer Route: PO, Drug Active 2015 [facility] form: TAB, [facility] QTue, Start date: 02/15/16 21:00:00 CDT, Duration: 30 day, Stop date: 03/14/16 21:00:00 CDTNotes: (Same As: Lipitor) Acetaminophen 325 1 tab, PO, Q6H, Active MG / Hydrocodone PRN pain, # 90 2015 [facility] Bitartrate 10 MG tab, 0 [facility] Oral Tablet [[place] Refill(s), ] given to patient morphine 15 mg 15 mg=1 tab, Active oral tablet, PO, Q12H, # 60 2015 [facility] extended release tab, 0 [facility] Refill(s), given to patient bisacodyl 5 mg 5 mg=1 tab, PO, Active oral enteric TID, PRN [address] [place] [address] coated tablet Constipation, 0 [facility] Refill(s) baclofen 10 mg 5 mg=0.5 tab, Active oral tablet PO, TID, PRN as 2015 [facility] needed for [facility] muscle spasm, # 45 tab, 0 Refill(s) MS Contin 15 mg, 1 tab, No Longer Route: PO, Drug Active 2015 [facility] form: ERTAB, [facility] Q12H, Dosing Weight 89.091, kg, Start date: 02/12/16 21:00:00 CDT, Duration: 30 day, Stop date: 03/13/16 9:00:00 CDTNotes: Do not crush (Same as:Oramorph SR, MS Contin) Lipitor 5 mg, 0.5 tab, No Longer Route: PO, Drug Active 2015 [facility] form: TAB, [facility] QFri, Start date: 02/11/16 21:00:00 CDT, Duration: 30 day, Stop date: 03/10/16 21:00:00 CDTNotes: (Same As: Lipitor) Tylenol 650 mg, 2 tab, No Longer Route: PO, Drug Active 2015 [facility] form: TAB, Q6H, [facility] Dosing Weight 89.091, kg, Start date: 02/11/16 18:00:00 CDT, Duration: 10 day, Stop date: 02/21/16 12:00:00 CDTNotes: Do not exceed 4 gm/day. (Same as: Tylenol) Bisacodyl 5 mg, 1 tab, No Longer Route: PO, Drug Active 2015 [facility] form: ECTAB, [facility] TID, Dosing Weight 89.091, kg, PRN Constipation, Start date: 02/11/16 17:47:00 CDT, Duration: 30 day, Stop date: 03/12/16 17:46:00 CDTNotes: (Same As: Dulcolax, Correctol) (Do Not Crush) "Do Not Crush" Docusate 100 mg, 1 cap, No Longer Route: PO, Drug Active 2015 [facility] form: CAP, TID, [facility] Dosing Weight 89.091, kg, Start date: 02/11/16 17:00:00 CDT, Duration: 30 day, Stop date: 03/12/16 13:00:00 CDTNotes: (Same as: Colace) (Do Not Crush) Simethicone 80 mg, 1 tab, No Longer Route: CHEW, Active 2015 [facility] Drug form: [facility] CHEWTAB, QID, Dosing Weight 89.091, kg, PRN Gas, Start date: 02/11/16 16:04:00 CDT, Duration: 30 day, Stop date: 03/12/16 16:03:00 CDTNotes: (Same as: Mylicon) Bisacodyl 10 mg, 1 supp, No Longer Route: VT, Drug Active 2015 [facility] form: SUPP, [facility] Daily, Dosing Weight 89.091, kg, PRN Constipation, Start date: 02/11/16 16:04:00 CDT, Duration: 30 day, Stop date: 03/12/16 16:03:00 CDTNotes: (Same As: Dulcolax, Bisco-Lax) Baclofen 5 mg, 0.5 tab, No Longer Route: PO, Drug [facility] 2015 [facility] form: TAB, TID, [facility] Dosing Weight 89.091, kg, Start date: 02/11/16 9:00:00 CDT, Duration: 30 day, Stop date: 03/11/16 17:00:00 CDTNotes: (Same As: Lioresal) Dilaudid 0.2 mg, 0.1 mL, No Longer Route: IVP, [facility] 2015 [facility] Drug form: INJ, [facility] Q2H, Dosing Weight 89.091, kg, PRN Pain Score 7-10, Start date: 02/10/16 17:54:00 CDT, Duration: 30 day, Stop date: 03/11/16 17:53:00 CDTNotes: (Same as: Dilaudid) Acetaminophen 325 1 tab, Route: No Longer MG / Hydrocodone PO, Drug Form: [facility] 2015 [facility] Bitartrate 5 MG TAB, Dosing [facility] Oral Tablet [[place] Weight 89.091, 5/325] kg, Q4H, PRN Pain Score 1-3, Start date: 02/10/16 17:52:00 CDT, Duration: 30 day, Stop date: 03/11/16 17:51:00 CDTNotes: (Same as: [place] 325/5) Do not exceed 4gm/day of acetaminophen. marta bonnienta, 5 No Longer mg, 1 tab, Drug [facility] 2015 [facility] form: MISC, [facility] Route: PO, Daily, 02/09/16 15:00:00 CDT, Duration: 30 day, Stop date: 03/10/16 9:00:00 CDT Rosuvastatin 2.5 mg, PO, Active calcium 5 MG Oral Bedtime, # 30 2015 [facility] Tablet [Crestor] tab, 0 City Refill(s) Sodium Chloride 25 mL, Route: No Longer 0.9% IV IV, Start date: [facility] 2015 [facility] 02/09/16 [facility] 10:15:00 CDT, Duration: 30 day, Stop date: 03/10/16 10:14:00 CDT, PRN Line Flush BD Normal Saline 10 mL, Route: No Longer Flush IV, Drug Form: [address] INJ, PRN, PRN [facility] Line Flush, Start date: 02/09/16 10:15:00 CDT, Duration: 30 day, Stop date: 03/10/16 10:14:00 CDTNotes: (Same as: BD Posiflush) Spironolactone 25 mg, 1 tab, No Longer Route: PO, Drug Active 2015 [facility] form: TAB, [facility] Daily, Dosing Weight 89.545, kg, Start date: 02/09/16 9:00:00 CDT, Duration: 30 day, Stop date: 03/09/16 9:00:00 CDTNotes: (Same As: Aldactone) irbesartan 300 mg, 2 tab, No Longer Route: PO, Drug Active [address] [place] [address] form: [facility] Daily, Dosing Weight 89.545, kg, Start date: 02/09/16 9:00:00 CDT, Duration: 30 day, Stop date: 03/09/16 9:00:00 CDTNotes: (Same as:Avapro) Tradjenta 5 mg, Route: Inactive PO, Drug form: [address] [place] [address] TAB, Daily, [facility] Dosing Weight 89.545, kg, Start date: 02/09/16 9:00:00 CDT Furosemide 20 MG 20 mg, 1 tab, No Longer Oral Tablet Route: PO, Drug Active [address] [place] [address] form: [facility], [facility] Daily, Dosing Weight 89.545, kg, Start date: 02/09/16 9:00:00 CDT, Duration: 30 day, Stop date: 03/09/16 9:00:00 CDTNotes: (Same as: Lasix) May cause GI upset. Give with food or milk. Vitamin D3 2,000 IntlUnit, No Longer 2 tab, Route: Active 2015 [facility] PO, Drug form: [facility] TAB, Daily, Dosing Weight 89.545, kg, Start date: 02/09/16 9:00:00 CDT, Duration: 30 day, Stop date: 03/09/16 9:00:00 CDTNotes: Same as : Vitamin D3 Amlodipine 10 mg, 2 tab, No Longer Route: PO, Drug [facility] 2015 [facility] form: TAB, [facility] Daily, Dosing Weight 89.545, kg, Start date: 02/09/16 9:00:00 CDT, Duration: 30 day, Stop date: 03/09/16 9:00:00 CDTNotes: (Same as: Norvasc) Miralax 17 gm, 1 pkt, No Longer Route: PO, Drug Active 2015 [facility] form: PWDR, [facility] Daily, Dosing Weight 89.545, kg, Start date: 02/09/16 9:00:00 CDT, Duration: 30 day, Stop date: 03/09/16 9:00:00 CDTNotes: Dissolve in 8 oz of water or juice. (Same as: Miralax) Insulin, Aspart, 1 unit, 0.01 No Longer Human mL, Route: [facility] 2015 [facility] SUB-Q, Drug [facility] form: SOLN, Bedtime, Dosing Weight 89.545, [...] mg, Route: No Longer IM, Drug form: [address] PDR/INJ, PRN, [facility] Dosing Weight 89.545, kg, PRN Blood Glucose Results, Start date: 02/09/16 1:52:00 CDT, Duration: 30 day, Stop date: 03/10/16 1:51:00 CDT Dextrose 50% 25 gm, 50 mL, No Longer Syringe Route: IVP, [address] Drug Form: INJ, [facility] Dosing Weight 89.545, kg, PRN, PRN Blood Glucose Results, Start date: 02/09/16 1:52:00 CDT, Duration: 30 day, Stop date: 03/10/16 1:51:00 CDT Crestor Route: PO, Drug No Longer form: TAB, Active 2015 [facility] Bedtime, Dosing [facility] Weight 89.545, kg, Start date: 02/08/16 21:00:00 CDT, Duration: 30 day, Stop date: 03/08/16 21:00:00 CDT Insulin Glargine 40 unit, 0.4 No Longer 100 UNT/ML mL, Route: Active 2015 [facility] Injectable SUB-Q, Drug [facility] Solution [Lantus] form: INJ, Bedtime, Dosing Weight 89.545, kg, Start date: 02/08/16 21:00:00 CDT, Duration: 30 day, Stop date: 03/08/16 21:00:00 CDTNotes: Same as Lantus Solostar PEN Do not hold insulin without contacting prescriber "single patient use only" WASTE: F/P - Black; E - [employer] Trash Bin Stable for 28 days at room temperature. Expires in days from D ate carvedilol 12.5 mg, 1 tab, No Longer Route: PO, Drug Active 2015 [facility] form: TAB, City Q12H, Dosing Weight 89.545, kg, Start date: 02/08/16 21:00:00 CDT, Duration: 30 day, Stop date: 03/09/16 9:00:00 CDTNotes: Give with food. (Same As: Coreg) Docusate Sodium 100 mg=1 cap, Active 100 MG Oral PO, BID, 0 2015 [facility] Capsule [Colace] Refill(s) [facility] Linagliptin 5 MG 5 mg=1 tab, PO, No Longer Oral Tablet Daily, 0 Active 2015 [facility] [Tradjenta] Refill(s) [facility] 3 ML Insulin 50 units, Active Glargine 100 SUB-Q, Bedtime, 2015 [facility] UNT/ML Prefilled 0 Refill(s) [facility] Syringe [Lantus] glimepiride 4 mg, PO, Active Daily, 0 2015 [facility] Refill(s) [facility] Clonidine 0.1 mg=1 tab, No Longer Hydrochloride 0.1 PO, PRN Active 2015 [facility] MG Oral Tablet Hypertension, 0 [facility] Refill(s) Ancef + sodium 1 gm, Route: No Longer chloride 0.9% INJ IVPB, Q8H, Active 2015 [facility] 100 mL Dosing Weight [facility] 89.545, kg, Start date: 02/08/16 18:00:00 CDT, Duration: 30 day, Stop date: 03/09/16 10:00:00 CDTNotes: (Same As: Dav Siufzol) MEDICATION WASTE Product Size: 1000 mg Product Wasted: ___ mg Docusate Sodium 100 mg, 1 cap, No Longer 100 MG Oral Route: PO, Drug Active 2015 [facility] Capsule [Colace] form: CAP, BID, [facility] Dosing Weight 89.545, kg, Start date: 02/08/16 17:00:00 CDT, Duration: 30 day, Stop date: 03/09/16 9:00:00 CDTNotes: (Same as: Colace) (Do Not Crush) Ofirmev 1,000 mg, Inactive Route: IV, 2015 [facility] ONCE, Dosing [facility] Weight 89, kg, Start date: 02/08/16 14:25:00 CDT, Stop date: 02/08/16 14:25:00 CDT Ondansetron 4 mg, 2 mL, Inactive Route: IVP2015 [facility] Drug form: INJ, City ONCE, Dosing Weight 89.545, kg, PRN Nausea & Vomiting, Start date: 02/08/16 13:22:00 CDTNotes: (Same as: Zofran) MEDICATION WASTE Product Size: 4 mg Product Wasted: ___ mg Flumazenil 0.2 mg, 2 mL, Inactive Route: IVP, 2015 [facility] Drug form: INJ, City PRN, Dosing Weight 89.545, kg, PRN Benzodiazepine Reversal, Initial dose, Start date: 02/08/16 13:22:00 CDT, Duration: 30 day, Stop date: 03/09/16 13:21:00 CDTNotes: (Same as: Romazicon) Naloxone 0.4 mg, 1 mL, Inactive Route: IVP, 2015 [facility] Drug form: INJ, City Q2MIN, Dosing Weight 89.545, kg, PRN Narcotic Reversal, Start date: 02/08/16 13:22:00 CDT, Duration: 8 doses or times, Stop date: Limited # of timesNotes: Same as Narcan Morphine 2 mg, 0.2 mL, Inactive Route: IVP, 2015 [facility] Drug form: INJ, City Q5Min, Dosing Weight 89.545, kg, PRN Pain Score 4-6, Start date: 02/08/16 13:22:00 CDT, Duration: 5 doses or times, Stop date: Limited # of timesNotes: (Same as:MORPhine Sulfate) Sodium Chloride 1,000 mL, Rate: Inactive 0.154 MEQ/ML 125 ml/hr, 2015 [facility] Injectable Infuse over: 8 City Solution hr, Route: IV, Dosing Weight 89.545 kg, Total Volume: 1,000, Start date: 02/08/16 13:22:00 CDT, Duration: 30 day, Stop date: 03/09/16 13:21:00 CDT Morphine 30 mg, 30 mL, No Longer Route: IV, Active 2015 [facility] Initial Loading [facility] Dose: 2 mg, HEALTH THERAPIST Dose: 1 mg, HEALTH THERAPIST Lockout: 10 minutes, Continuous Basal Rate: 0 mg, 4 Hour Limit (In MG): 30, Drug Form: INJ, Continuous, Start date: 02/08/16 13:00:00 CDT, Duration: 30 day, Stop date: 03/09/16...Note s: Dose: Delay: Basal rate: 4hr limit: (Same as:Abby) Naloxone 0.04 mg, 0.1 No Longer mL, Route: IVP, Active 2015 [facility] Drug form: INJ, City Q2MIN, Dosing Weight 89.545, kg, PRN Narcotic Reversal, Start date: 02/08/16 12:53:00 CDT, Duration: 30 day, Stop date: 03/09/16 12:52:00 CDTNotes: Same as Narcan Acetaminophen 325 1 tab, Route: No Longer MG / Hydrocodone PO, Drug Form: [address] Bitartrate 10 MG TAB, Dosing [facility] Oral Tablet [[place] Weight 89.545, 10/325] kg, Q4H, PRN Pain Score 4-6, Start date: 02/08/16 12:53:00 CDT, Duration: 30 day, Stop date: 03/09/16 12:52:00 CDTNotes: Do not exceed 4gm/day of acetaminophen. (Same as: [place] 325/10) Zofran 4 mg, 2 mL, No Longer Route: IV, Drug [address] form: INJ, Q6H, [facility] Dosing Weight 89.545, kg, PRN Nausea, Start date: 02/08/16 12:53:00 CDT, Duration: 30 day, Stop date: 03/09/16 12:52:00 CDTNotes: (Same as: Zofran) MEDICATION WASTE Product Size: 4 mg Product Wasted: ___ mg Robaxin 750 mg, 7.5 mL, No Longer Route: IV, Q6H, [address] Dosing Weight [facility] 89.545, kg, PRN Muscle Spasms, Start date: 02/08/16 12:52:00 CDT, Duration: 30 day, Stop date: 03/09/16 12:51:00 CDTNotes: (Same as:Robaxin) Lactated Ringers 1,000 mL, Rate: No Longer 1,000 mL 75 ml/hr, [address] Infuse over: [facility] 13.3 hr, Route: IV, Dosing Weight 89.545 kg, Total Volume: 1,000, Start date: 02/08/16 12:52:00 CDT, Duration: 30 day, Stop date: 03/09/16 12:51:00 CDT Flexeril 10 mg, 1 tab, No Longer Route: PO, Drug [address] form: TAB, TID, [facility] Dosing Weight 89.545, kg, PRN Spasm, Start date: 02/08/16 12:52:00 CDT, Duration: 30 day, Stop date: 03/09/16 12:51:00 CDTNotes: (Same As: Flexeril) Diphenhydramine 25 mg, 1 cap, No Longer Route: PO, Drug [facility] 2015 [facility] form: CAP, TID, [facility] Dosing Weight 89.545, kg, PRN Itching, Start date: 02/08/16 12:52:00 CDT, Duration: 30 day, Stop date: 03/09/16 12:51:00 CDTNotes: (Same as: Benadryl) phenol 1 spray, Route: No Longer TOP, Q2H, Drug Active 2015 [facility] form: SPRY, PRN [facility] Sore Throat, Start date: 02/08/16 12:52:00 CDT, Duration: 30 day, Stop date: 03/09/16 12:51:00 CDTNotes: Chloraseptic [place] (Same as: Chloraseptic, Sore Throat [place]) WASTE: F/P - Black; E - [employer] ceFAZolin 2 gm, 100 mL, No Longer Route: IVPB, [facility] 2015 [facility] Drug form: INJ, [facility] ONCALL, Start date: 02/07/16 22:00:00 CDT, Duration: 22 hr, Stop date: 02/08/16 19:59:00 CDTNotes: Same as: Anc carvedilol 12.5 mg 12.5 mg=1 tab, Active oral tablet PO, Q12H, 0 2015 [facility] Refill(s) [facility] Acetaminophen 325 1 tab, Route: No Longer MG / Hydrocodone PO, Drug Form: [facility] 2015 [facility] Bitartrate 7.5 MG TAB, Dosing [facility] Oral Tablet [[place] Weight 97.983, 7.5/325] kg, Q4H, PRN Pain Score 4-6, Start date: 01/18/16 9:32:00 CDT, Duration: 30 day, Stop date: 02/17/16 9:31:00 CDTNotes: Same as [place] 325-7.5mg Do not exceed 4gm/day of acetaminophen. sodium phosphate + 15 mmol, 5 mL, No Longer sodium chloride Route: IVPB, [facility] 2015 [facility] 0.9% INJ 250 mL PRN, Dosing [facility] Weight 97.983, kg, PRN Abnormal Lab Result, Start date: 01/17/16 16:42:00 CDT, Stop date: 02/16/16 16:41:00 CDT heparin sodium, 5,000 unit, 1 No Longer porcine 2500 mL, Route: Active 2015 [facility] UNT/ML Injectable SUB-Q, Drug [facility] Solution form: INJ, Q12H, Dosing Weight 97.983, kg, Start date: 01/15/16 21:00:00 CDT, Duration: 30 day, Stop date: 02/14/16 9:00:00 CDTNotes: porcine heparin gabapentin 300 MG 300 mg, 1 cap, No Longer Oral Capsule Route: PO, Drug Active 2015 [facility] form: CAP, TID, [facility] Dosing Weight 97.983, kg, PRN Pain Score 1-5, Start date: 01/15/16 19:22:00 CDT, Duration: 30 day, Stop date: 02/14/16 19:21:00 CDTNotes: (Same as: Neurontin) Insulin, Aspart, 7 unit, 0.07 No Longer Human mL, Route: Active 2015 [facility] SUB-Q, Drug [facility] form: SOLN, TID-Before Meals, Dosing Weight [...] mL, No Longer Route: IV, Drug Active [address] [place] [address] form: INJ, Q6H, [facility] Dosing Weight 97.983, kg, PRN Other -See Comment, Start date: 01/14/16 14:44:00 CDT, Duration: 30 day, Stop date: 02/13/16 14:43:00 CDT, SBP>170Notes: (Same as: Apresoline) Push over 5 minutes Ativan 1 mg, 0.5 mL, Inactive Route: IVP, [address] [place] [address] Drug form: INJ, City ONCE, Dosing Weight 97.983, kg, PRN Procedure, prior to MRI, Start date: 01/13/16 15:06:00 CDTNotes: (Same as: Ativan) Acetaminophen 325 1 tab, Route: No Longer MG / Hydrocodone PO, Drug Form: Active 2015 [facility] Bitartrate 10 MG TAB, Dosing [facility] Oral Tablet [[place] Weight 97.983, 10/325] kg, Q4H, Start date: 01/13/16 15:05:00 CDT, Stop date: 02/12/16 16:00:00 CDT Miralax 17 gm, 1 pkt, No Longer Route: PO, Drug Active 2015 [facility] form: PWDR, [facility] Daily, Dosing Weight 97.983, kg, PRN Constipation, Start date: 01/13/16 9:11:00 CDT, Duration: 30 day, Stop date: 02/12/16 9:10:00 CDTNotes: Dissolve in 8 oz of water or juice. (Same as: Miralax) Lorazepam 0.5 mg, Route: Inactive IVP, Drug form: [address] [place] [address] INJ, ONCE, [facility] Dosing Weight 97.983, kg, PRN Anxiety, Priority: NOW, Start date: 01/12/16 10:44:00 CDT Tradjenta 5 mg, Route: Inactive PO, Drug form: 2015 [facility] TAB, Daily, [facility] Dosing Weight 97.983, kg, Start date: 01/12/16 9:00:00 CDT irbesartan 300 mg, 2 tab, No Longer Route: PO, Drug Active [address] [place] [address] form: TAB, City Daily, Dosing Weight 97.983, kg, Start date: 01/12/16 9:00:00 CDT, Duration: 30 day, Stop date: 02/10/16 9:00:00 CDTNotes: (Same as:Avapro) Furosemide 20 MG 20 mg, 1 tab, No Longer Oral Tablet Route: PO, Drug Active [address] [place] [address] form: TAB, City Daily, Dosing Weight 97.983, kg, Start date: 01/12/16 9:00:00 CDT, Duration: 30 day, Stop date: 02/10/16 9:00:00 CDTNotes: (Same as: Lasix) May cause GI upset. Give with food or milk. glimepiride 8 mg, 4 tab, No Longer Route: PO, Drug Active 2015 [facility] form: TAB, [facility] Daily, Dosing Weight 97.983, kg, Start date: 01/12/16 9:00:00 CDT, Duration: 30 day, Stop date: 02/10/16 9:00:00 CDTNotes: (Same as: Amaryl) Tradjenta 5 mg Tradjenta 5 mg No Longer (Patient's own (Patient's own Active 2015 [facility] medicine) medicine), 1 City tab, Drug form: MISC, Route: PO, Daily, 01/12/16 9:00:00 CDT, Duration: 30 day, Stop date: 02/10/16 9:00:00 CDT Aspirin 81 MG 81 mg, 1 tab, No Longer Enteric Coated Route: PO, Drug Active 2015 [facility] Tablet form: ECTAB, [facility] Daily, Dosing Weight 97.983, kg, Start date: 01/12/16 9:00:00 CDT, Duration: 30 day, Stop date: 02/10/16 9:00:00 CDTNotes: Do not crush or chew. (Same As: Ecotrin) Amlodipine 10 mg, 2 tab, No Longer Route: PO, Drug Active 2015 [facility] form: TAB, [facility] Daily, Dosing Weight 97.983, kg, Start date: 01/12/16 9:00:00 CDT, Duration: 30 day, Stop date: 02/10/16 9:00:00 CDTNotes: (Same as: Norvasc) Docusate 100 mg, 1 cap, No Longer Route: PO, Drug Active 2015 [facility] form: CAP, BID, [facility] Dosing Weight 97.983, kg, Start date: 01/12/16 9:00:00 CDT, Duration: 30 day, Stop date: 02/10/16 17:00:00 CDTNotes: (Same as: Colace) (Do Not Crush) Spironolactone 25 mg, 1 tab, No Longer Route: PO, Drug Active 2015 [facility] form: TAB, City Daily, Dosing Weight 97.983, kg, Start date: 01/12/16 9:00:00 CDT, Duration: 30 day, Stop date: 02/10/16 9:00:00 CDTNotes: (Same As: Aldactone) Ativan 1 mg, 0.5 mL, Inactive Route: IVP, 2015 [facility] Drug form: INJ, City ONCE, Dosing Weight 97.983, kg, PRN Procedure, Start date: 01/12/16 8:54:00 CDTNotes: (Same as: Ativan) Sodium Chloride 25 mL, Route: No Longer 0.9% IV IV, Start date: Active 2015 [facility] 01/12/16 [facility] 8:19:00 CDT, Duration: 30 day, Stop date: 02/11/16 8:18:00 CDT, PRN Line Flush BD Normal Saline 10 mL, Route: No Longer Flush IV, Drug Form: [facility] 2015 [facility] INJ, PRN, PRN [facility] Line Flush, Start date: 01/12/16 8:19:00 CDT, Duration: 30 day, Stop date: 02/11/16 8:18:00 CDTNotes: (Same as: BD Posiflush) Insulin, Aspart, 4 unit, 0.04 No Longer Human mL, Route: Active 2015 [facility] SUB-Q, Drug [facility] form: SOLN, Bedtime, Dosing Weight 97.983, [...] No Longer Syringe Route: IVP, Active 2015 [facility] Drug Form: INJ, [facility] Dosing Weight 97.983, kg, PRN, PRN Blood Glucose Results, Start date: 01/11/16 22:38:00 CDT, Duration: 30 day, Stop date: 02/10/16 22:37:00 CDT Glucagon 1 mg, Route: No Longer IM, Drug form: [facility] 2015 [facility] PDR/INJ, PRN, [facility] Dosing Weight 97.983, kg, PRN Blood Glucose Results, Start date: 01/11/16 22:38:00 CDT, Duration: 30 day, Stop date: 02/10/16 22:37:00 CDT Lipitor 10 mg, 1 tab, No Longer Route: PO, Drug Active 2015 [facility] form: TAB, [facility] Bedtime, Start date: 01/11/16 21:38:00 CDT, Duration: 30 day, Stop date: 02/10/16 21:00:00 CDTNotes: (Same As: Lipitor) Lantus 45 unit, 0.45 No Longer mL, Route: Active 2015 [facility] SUB-Q, Drug [facility] form: INJ, Bedtime, Dosing Weight 97.983, [...] No Longer Route: PO, Drug Active 2015 [facility] form: TAB, [facility] Q12H, Dosing Weight 97.983, kg, Start date: 01/11/16 21:00:00 CDT, Stop date: 02/10/16 9:00:00 CDTNotes: Give with food. (Same As: Coreg) Crestor Route: PO, Drug Inactive form: TAB, 2015 [facility] Bedtime, Dosing [place] Weight 97.983, kg, Start date: 01/11/16 21:00:00 CDT, Duration: 30 day, Stop date: 02/09/16 21:00:00 CDT Acetaminophen 325 1 tab, Route: No Longer MG / Hydrocodone PO, Drug Form: Active [address] [place] [address] Bitartrate 10 MG TAB, Dosing [facility] Oral Tablet [[place] Weight 97.983, 10/325] kg, Q6H, Start date: 01/11/16 18:00:00 CDT, Stop date: 02/10/16 12:00:00 CDTNotes: Do not exceed 4gm/day of acetaminophen. (Same as: [place] 325/10) Enoxaparin 40 mg, 0.4 mL, No Longer Route: SUB-Q, [address] Drug form: INJ, [facility] [id number], Dosing Weight 97.983, kg, Start date: 01/11/16 18:00:00 CDT, Duration: 30 day, Stop date: 02/09/16 18:00:00 CDTNotes: (Same as: Lovenox) Clonidine 0.1 mg, 1 tab, No Longer Hydrochloride 0.1 Route: PO, Drug Active [address] [place] [address] MG Oral Tablet form: TAB, QID, [facility] Dosing Weight 97.983, kg, PRN Hypertension, sbp>170, Start date: 01/11/16 17:56:00 CDT, Duration: 30 day, Stop date: 02/10/16 17:55:00 CDTNotes: (Same As: Catapres) Sodium Chloride 1,000 mL, Rate: No Longer 0.154 MEQ/ML 45 ml/hr, Active 2015 [facility] Injectable Infuse over: [facility] Solution 22.2 hr, Route: IV, Dosing Weight 97.983 kg, Total Volume: 1,000, Start date: 01/11/16 17:53:00 CDT, Duration: 30 day, Stop date: 02/10/16 17:52:00 CDT Saline Flush 0.9% 10 ml, Route: No Longer IVP, Drug Form: Ori [address] [place] [address] INJ, Dosing [facility] Weight 97.983, kg, PRN, PRN Line Flush, Start date: 01/11/16 17:53:00 CDT, Duration: 30 day, Stop date: 02/10/16 17:52:00 CDTNotes: (Same as: BD Posiflush) Morphine 2 mg, 1 mL, No Longer Route: IVP, Active 2015 [facility] Drug form: INJ, City Q4H, Dosing Weight 97.983, kg, PRN Pain Score 7-10, Start date: 01/11/16 17:53:00 CDT, Duration: 30 day, Stop date: 02/10/16 17:52:00 CDTNotes: (Same as:MORPhine Sulfate) Ondansetron 4 mg, 2 mL, No Longer Route: IVP, Active 2015 [facility] Drug form: INJ, City Q6H, Dosing Weight 97.983, kg, PRN Nausea & Vomiting, Start date: 01/11/16 17:53:00 CDT, Duration: 30 day, Stop date: 02/10/16 17:52:00 CDTNotes: (Same as: Rachel) MEDICATION WASTE Product Size: 4 mg Product Wasted: ___ mg Acetaminophen 650 mg, Route: Inactive PO, Drug form: 2015 [facility] TAB, Q4H, [facility] Dosing Weight 97.983, kg, PRN Pain 1-3/Temp > 100.4 F, Start date: 01/11/16 17:53:00 CDT, Duration: 30 day, Stop date: 02/10/16 17:52:00 CDT irbesartan 300 mg 300 mg=1 tab, Active oral tablet PO, Daily, # 30 2015 [facility] tab, 0 [facility] Refill(s) Co Q-10 100 mg 200 mg=2 cap, Active oral capsule PO, Daily, 0 2015 [facility] Refill(s) [facility] Aspirin 81 MG 81 mg=1 tab, Active Enteric Coated PO, Daily, # 90 2015 [facility] Tablet tab, 3 City Refill(s) Vitamin D3 2,000 IntlUnit, Active PO, Daily, 0 2015 [facility] Refill(s) [facility] Rosuvastatin See Active calcium 5 MG Oral Instructions, 1 2015 [facility] Tablet [Crestor] tab PO Bedtime [facility] tuesdays and fridays, 0 Refill(s) spironolactone 25 25 mg=1 tab, Active mg oral tablet PO, Daily, # 30 2015 [facility] tab, 3 City Refill(s) Docusate Sodium 300 mg=3 cap, Active 100 MG Oral PO, Daily, 0 2015 [facility] Capsule [Colace] Refill(s) [facility] Furosemide 20 MG 20 mg=1 tab, Active Oral Tablet PO, Daily, # 30 2015 [facility] tab, 0 City Refill(s) Linagliptin 5 MG 5 mg=1 tab, PO, Active Oral Tablet Daily, # 2015 [facility] [Tradjenta] tab, 3 [facility] Refill(s) Acetaminophen 325 2 tabs, PO, Active MG / Hydrocodone Q6H, 0 2015 [facility] Bitartrate 10 MG Refill(s) [facility] Oral Tablet [[place] 10/325] Amlodipine 10 mg, PO, Active Daily, 0 2015 [facility] Refill(s) [facility] Pepcid 20 mg oral 20 mg, 1 tab, PO Active [place] tablet PO, BID, 60 2012 Medical tab, Center Substitution Allowed [place] 10/325 oral 1-2 tab, PO, PO Active [...] [place] mg Tablet package 2012 Medical instructions, [place] PO, Daily, Take with or without food, [...] 10 unit, 0.1 SUB-Q No Longer [facility] 10/05[facility] mL, Route: Active 2012 Medical SUB-Q, Drug Center form: INJ, ONCE, Dosing Weight 91.818, kg, Start date: 10/05/12 18:46:00, Stop date: 10/05/12 18:46:00 insulin aspart 3 unit, 0.03 SUB-Q No Longer [facility] mL, Route: Active 2012 Medical SUB-Q, Drug Center form: SOLN, TID-Before Meals, Dosing Weight 91.818, kg, PRN Blood Glucose Results, Start date: 10/05/12 17:13:00, Duration: 30 day, Stop date: 11/04/12 17:12:00 glucagon 1 mg, Route: IM No Longer [place] 10/05[facility] IM, Drug form: Active 2012 Medical PDR/INJ, PRN, Center Dosing Weight 91.818, kg, PRN Blood Glucose Results, Start date: 10/05/12 17:13:00, Duration: 30 day, Stop date: 11/04/12 17:12:00 Dextrose 50% 12.5 gm, 25 mL, IVP No Longer [facility] 10/05[facility] Syringe Route: IVP, Active 2012 Medical Drug Form: INJ, Center Dosing Weight 91.818, kg, PRN, PRN Blood Glucose Results, Start date: 10/05/12 17:13:00, Duration: 30 day, Stop date: 11/04/12 17:12:00 insulin aspart 5 unit, 0.05 SUB-Q No Longer [place] 10/05[facility] mL, Route: Active 2012 Medical SUB-Q, Drug Center form: SOLN, TID-Before Meals, Dosing Weight 91.818, kg, Start date: 10/05/12 11:30:00, Duration: 30 day, Stop date: 11/04/12 7:30:00 Ativan 1 mg, 1 tab, PO No Longer [facility] Route: PO, Drug Active 2012 Medical form: TAB, Center Bedtime, Dosing Weight 91.818, kg, PRN Insomnia, Start date: 10/05/12 10:38:00, Duration: 30 day, Stop date: 11/04/12 10:37:00 Valium 5 mg, 1 tab, PO No Longer Dion[facility]io [facility] Route: PO, Drug Active 2012 Medical form: TAB, Center ONCE, Dosing Weight 91.818, kg, PRN Anxiety, Start date: 10/05/12 4:41:00, Stop date: 11/04/12 4:40:00 dexamethasone 4 mg, 1 mL, IVP No Longer Dionisio [facility] Route: IVP, Active 2012 Medical Drug form: INJ, Center Q6H, Dosing Weight 91.818, kg, Start date: 10/05/12 0:00:00, Duration: 30 day, Stop date: 11/03/12 18:00:00 heparin 5,000 unit, 1 SUB-Q No Longer Deniz [facility] mL, Route: Active 2012 Medical SUB-Q, Drug Center form: INJ, Q8H, Dosing Weight 91.818, kg, Start date: 10/05/12 0:00:00, Duration: 30 day, Stop date: 11/03/12 16:00:00 famotidine 20 mg, 1 tab, PO No Longer Dionisio [facility] Route: PO, Drug Active 2012 Medical form: TAB, BID, Center Dosing Weight 91.818, kg, Start date: 10/04/12 21:00:00, Duration: 30 day, Stop date: 11/03/12 9:00:00 Insulin regular 12 unit, 0.12 SUB-Q No Longer [facility] mL, Route: Active 2012 Medical SUB-Q, Drug Center form: SOLN, TID-Before Meals, Dosing Weight 91.818, kg, PRN Blood Glucose Results, Start date: 10/04/12 19:54:00, Duration: 30 day, Stop date: 11/03/12 19:53:00 glucagon 1 mg, Route: IM No Longer [place] IM, Drug form: Active 2012 Medical PDR/INJ, PRN, Center Dosing Weight 91.818, kg, PRN Blood Glucose Results, Start date: 10/04/12 19:54:00, Duration: 30 day, Stop date: 11/03/12 19:53:00 Dextrose 50% 25 gm, 50 mL, IVP No Longer [facility] Syringe Route: IVP, Active 2012 Medical Drug Form: INJ, Center Dosing Weight 91.818, kg, PRN, PRN Blood Glucose Results, Start date: 10/04/12 19:54:00, Duration: 30 day, Stop date: 11/03/12 19:53:00 dexamethasone + 10 mg, 1 mL, IVP No Longer Dionisio [facility] Sodium Chloride Route: IVP, Active 2012 Medical 0.9% IV 50 mL Drug form: INJ, Center ONCE, Dosing Weight 91.818, kg, Start date: 10/04/12 19:14:00, Stop date: 10/04/12 19:14:00 magnesium sulfate 2 gm, 50 mL, IVPB No Longer [facility] Route: IVPB, Active 2012 Medical Drug form: INJ, Center Q2H, Dosing Weight 91.818, kg, Total dose=4 gm, Start date: 10/04/12 16:00:00, Duration: 2 doses or times, Stop date: 10/04/12 18:00:00 Ativan 1 mg, 0.5 mL, IVP No Longer Michael [facility] Route: IVP, Active 2012 Medical Drug form: INJ, Center ONCE, Dosing Weight 91.818, kg, PRN Anxiety, Start date: 10/04/12 11:52:00 acetaminophen-hydr 1 tab, Route: PO No Longer Michael [facility] ocodone 325 mg-10 PO, Drug Form: Active 2012 Medical mg oral tablet TAB, Dosing Center Weight 91.818, kg, Q4H, PRN Pain Score 4-6, Start date: 10/04/12 11:52:00, Duration: 30 day, Stop date: 11/03/12 11:51:00 hydrochlorothiazid 25 mg, Route: PO No Longer [place] e PO, Drug form: Active 2012 Medical TAB, Daily, Center Dosing Weight 91.818, kg, Start date: 10/04/12 9:00:00, Duration: 30 day, Stop date: 11/02/12 9:00:00 Januvia 100 mg, 1 tab, PO No Longer [place] [facility] Route: PO, Drug Active 2012 Medical form: TAB, Center Daily, Dosing Weight 91.818, kg, Start date: 10/04/12 9:00:00, Duration: 30 day, Stop date: 11/02/12 9:00:00 amLODipine 10 mg, 1 tab, PO No Longer [place] 10/04[facility] Route: PO, Drug Active 2012 Medical form: TAB, Center Daily, Dosing Weight 91.818, kg, Start date: 10/04/12 9:00:00, Duration: 30 day, Stop date: 11/02/12 9:00:00 Lantus 30 unit, 0.3 SUB-Q No Longer [facility] mL, Route: Active 2012 Medical SUB-Q, Drug Center form: INJ, Daily, Dosing Weight 91.818, kg, Start date: 10/04/12 9:00:00, Stop date: 11/02/12 9:00:00 polyethylene 17 gm, 1 pkt, PO No Longer [place] 10/04[facility] glycol 3350 Route: PO, Drug Active 2012 Medical form: PWDR, Center Daily, Dosing Weight 91.818, kg, Start date: 10/04/12 9:00:00, Duration: 30 day, Stop date: 11/02/12 9:00:00 Zofran 4 mg oral 4 mg, 1 tab, PO Active [place] 10/04[facility] tablet PO, Q8H, 30 2012 Medical tab, Center Substitution Allowed docusate sodium 100 mg, 1 cap, PO Active [place] 10/04[facility] [place] 100 mg oral PO, Q12H, PRN, 2012 Medical capsule 20 cap, as Center needed for constipation, Substitution Allowed, CAP tramadol 50 mg 1 - 2 tab, PO, PO Active [place] [address] oral tablet Q6H, PRN, 112 2012 Medical tab, Pain, Center Substitution Allowed, TAB cyclobenzaprine 10 10 mg, 1 tab, PO Active [place] [address] [place] mg oral tablet PO, TID, PRN, 2013 Medical 42 tab, Spasm, Center Substitution Allowed, TAB olmesartan 40 mg 40 mg, 1 tab, PO Active [place] [address] oral tablet PO, Daily, 2012 Medical tab, Center Substitution Allowed, TAB Dilaudid 0.3 mg, 0.15 IV No Longer [place] mL, Route: IV, Active 2012 Medical [...] 10 mg, 2 mL, IVP No Longer [place] [facility] Route: IVP, Active 2012 Medical Drug form: INJ, Center Q15Min, Dosing Weight 91.818, kg, PRN Hypertension, Start date: 10/04/12 3:05:00, Duration: 30 day, Stop date: 11/03/12 3:04:00 hydrALAZINE 10 mg, 0.5 mL, IV No Longer [place] Route: IV, Drug Active 2012 Medical [...] 12.5 mg, 1 tab, PO No Longer [place] Route: PO, Drug Active 2012 Medical form: TAB, Center Q12H, Dosing Weight 91.818, kg, Start date: 10/03/12 21:00:00, Stop date: 11/02/12 9:00:00 Saline Flush 0.9% 5 ml, Route: IVP No Longer [place] [facility] IVP, Drug Form: Active 2012 Medical INJ, Dosing Center Weight 91.818, kg, Q12H, Start date: 10/03/12 21:00:00, Duration: 30 day, Stop date: 11/02/12 9:00:00 docusate 100 mg, 1 cap, PO No Longer [place] [facility] Route: PO, Drug Active 2012 Medical form: CAP, Center Q12H, Dosing Weight 91.818, kg, Start date: 10/03/12 21:00:00, Duration: 30 day, Stop date: 11/02/12 9:00:00 senna 8.6 mg, 1 tab, PO No Longer [place] [facility] Route: PO, Drug Active 2012 Medical Form: TAB, Center Dosing Weight 91.818, kg, Q12H, Start date: 10/03/12 21:00:00, Duration: 30 day, Stop date: 11/02/12 9:00:00 Ancef + Sodium 2 gm, Route: IVPB No Longer [place] [facility] Chloride 0.9% IV IVPB, Drug Active 2012 Medical 100 mL form: PDR/INJ, Center [id number], Dosing Weight 91.818, kg, Start date: 10/03/12 20:00:00, Duration: 1 day, Stop date: 10/04/12 12:00:00 tramadol 50 mg, 1 tab, PO No Longer [facility] Route: PO, Drug Active 2012 Medical form: TAB, Q4H, Center Dosing Weight 91.818, kg, PRN Pain Score 4-6, Start date: 10/03/12 18:56:00, Stop date: 11/02/12 18:55:00 Flexeril 10 mg, 1 tab, PO No Longer [place] [facility] Route: PO, Drug Active 2012 Medical form: TAB, TID, Center Dosing Weight 91.818, kg, PRN Spasm, Start date: 10/03/12 18:54:00, Duration: 30 day, Stop date: 11/02/12 18:53:00 Dextrose 50% 12.5 gm, 25 mL, IVP No Longer [place] [facility] Syringe Route: IVP, Active 2012 Medical Drug Form: INJ, Center Dosing Weight 91.818, kg, PRN, PRN Abnormal Lab Result, Start date: 10/03/12 18:18:00, Duration: 30 day, Stop date: 11/02/12 18:17:00 insulin regular 5 unit, 0.05 SUB-Q No Longer [facility] [place] 100 units/mL human mL, Route: Active 2012 Medical recombinant SUB-Q, Drug Center form: SOLN, PRN, Dosing Weight 91.818, kg, PRN Abnormal Lab Result, Start date: 10/03/12 18:18:00, Duration: 30 day, Stop date: 11/02/12 18:17:00 hydrALAZINE 20 mg, 1 mL, IVP No Longer [place] 10/03[facility] [place] Route: IVP, 2012 Medical Drug form: INJ, Center Q4H, Dosing Weight 91.818, kg, PRN Other -See Comment, Start date: 10/03/12 18:14:00, Duration: 30 day, Stop date: 11/02/12 18:13:00, SBP > 150 mmHg labetalol 20 mg, 4 mL, IVP No Longer [place] 10/03[facility] [place] Route: IVP, Active 2012 Medical Drug form: INJ, Center Q15Min, Dosing Weight 91.818, kg, PRN Elevated BP, Start date: 10/03/12 18:14:00, Duration: 3 doses or times, Stop date: 10/04/12 0:00:00, SBP > 150 mmHg naloxone 0.2 mg, 0.5 mL, IVP No Longer [place] 10/03[facility] [place] Route: IVP, Active 2012 Medical Drug form: INJ, Center Q5Min, PRN Narcotic Reversal, Start date: 10/03/12 18:04:00, Duration: 30 day, Stop date: 11/02/12 18:03:00 hydrALAZINE 20 mg, Route: [facility]P [address] [facility] [place] IVP, ONCE, Active 2012 Medical Dosing [...] 15 mg, 30 mL, IV No Longer [place] [address] [facility] 0.5mg/mL HEALTH THERAPIST Route: IV, HEALTH THERAPIST Active 2012 Medical (15mg/30 mL) 15 mg Dose: 0.3 mg, Center HEALTH THERAPIST Lockout: 15 minutes, 4 Hour Limit (In MG): 4.8, Drug Form: INJ, Continuous, Start date: 10/03/12 12:00:00, Stop date: 11/02/12 11:59:00 Saline Flush 0.9% 5 ml, Route: IVP No Longer [place] [address] [facility] IVP, Drug Form: Active 2012 Medical INJ, Dosing Center Weight 91.818, kg, PRN, PRN Line Flush, Start date: 10/03/12 11:42:00, Duration: 30 day, Stop date: 11/02/12 11:41:00 ondansetron 4 mg, 2 mL, IVP No Longer [place] [address] [facility] Route: IVP, Active 2012 Medical Drug form: INJ, Center Q8H, Dosing Weight 91.818, kg, PRN Nausea & Vomiting, Start date: 10/03/12 11:42:00, Duration: 30 day, Stop date: 11/02/12 11:41:00 acetaminophen 650 mg, 20.3 PO No Longer [place] [address] [facility] mL, Route: PO, Active 2012 Medical Drug form: LIQ, Center Q4H, Dosing Weight 91.818, kg, PRN Pain 1-3/Temp > 99.5 F, Start date: 10/03/12 11:42:00, Duration: 30 day, Stop date: 11/02/12 11:41:00 acetaminophen-hydr 1 tab, Route: PO No Longer [place] [address] [facility] ocodone 325 mg-10 PO, Drug Form: Active 2012 Medical mg oral tablet TAB, Dosing Center Weight 91.818, kg, Q4H, PRN Pain Score 4-6, Start date: 10/03/12 11:42:00, Duration: 30 day, Stop date: 11/02/12 11:41:00 amLODipine Substitution Active 10/03[facility] Allowed 2012 [facility] NS + KCL 20mEq/L 1,000 mL, Rate: IV No Longer [place] 1000ml (Premix) 70 ml/hr, Active 2012 Medical 1,000 mL Infuse over: Center 14.3 hr, Route: IV, kg, Total Volume: 1,000, Start date: 10/03/12 5:00:00, Duration: 1 day, Stop date: 10/04/12 4:59:00 cefazolin 2 gm, 100 mL, IVPB No Longer [facility] Route: IVPB, Active 2012 Medical Drug form: INJ, Center PRE OP, Start date: 10/03/12 5:00:00, Duration: 1 day, Stop date: 10/04/12 4:59:00 Vicodin HP 10 PO, PRN, PO Active 10/01[facility] mg-300 mg oral Substitution 2012 Medical tablet Allowed, Center Maintenance Dulcolax Laxative 1 supp, [place], [place] Active 10/01[facility] Daily, PRN, 5 2012 [facility] supp, Center constipation, Substitution Allowed, SUPP clonidine 0.1 mg PO, QID, prn PO Active [place] 10/01[facility] oral tablet bp>160, 2012 Medical Substitution Center Allowedprn bp>160 Benicar HCT 12.5 1 tab, PO, PO Active 10/01[facility] mg-40 mg oral Daily, 30 tab, 2012 Medical tablet Substitution Center Allowed, Maintenance, TAB carvedilol 25 mg 25 mg, 1 tab, PO Active [place] 10/01[facility] oral tablet PO, Q12H, 60 2012 Medical tab, Center Substitution Allowed, TAB Januvia 100 mg 100 mg, 1 tab, PO Active [place] 10/01[facility] oral tablet PO, Daily, 30 2012 [facility] tab, Center Substitution Allowed, TAB Lantus 22 unit, SUB-Q, SUB-Q Active 10/01[facility] Bedtime, 2012 Medical Substitution Center Allowed glimepiride 4 mg 8 mg, 2 tab, PO Active 10/01[facility] oral tablet PO, Daily, 2012 Medical Substitution Center Allowed Allergies, Adverse Reactions, Alerts Substance Category Reaction Severity Reaction Status Date Comments Source type Reported NKFA Assertion Drug Active allergy [facility] Immunizations Immunization Date Given Site Status Last Updated Comments Source Results Order Name Results Value Reference Date Interpretation Comments Source Range CHEM PANEL Magnesium 1.8 mg/dL 1.8 - 2.4 01/16 [facility] CHEM PANEL Phosphorus 2.4 mg/dL 2.5 - 4.5 01/16 [facility] CHEM PANEL CO2 30 meq/L 24 - 32 01/16 [facility] CHEM PANEL Glucose Lvl 240 mg/dL 70 - 99 01/16 [facility] CHEM PANEL Creatinine 0.80 mg/dL 0.50 - 01/16 Lvl 1.40 [facility] CHEM PANEL BUN 20 mg/dL 7 - 22 01/16 [facility] CHEM PANEL eGFR 73 01/16 Result Comment: [...] is not recommended in the following populations: [address] Individuals with unstable creatinine concentrations, including [...] Lvl 2.8 g/dL 3.5 - 5.0 01/16 [facility] CHEM PANEL Calcium Lvl 10.5 mg/dL 8.5 - 10.5 01/16 [facility] CHEM PANEL Potassium 4.3 meq/L 3.5 - 5.1 01/16 [facility] CHEM PANEL Chloride Lvl 107 meq/L 95 - 109 01/16 [facility] CHEM PANEL Sodium Lvl 143 meq/L 135 - 145 01/16 [facility] CHEM PANEL AGAP 10.3 meq/L 10.0 - 08 MH 20.0 [facility] HEMATOLOGY Lymphocytes 1.3 K/CMM 1.0 - 5.5 01/16 # /2015 [facility] HEMATOLOGY Segs-Bands # 4.4 K/CMM 1.5 - 8.1 08/ /2015 [facility] HEMATOLOGY Eosinophils 0.3 K/CMM 0.0 - 0.5 08/ MH # /2015 [facility] HEMATOLOGY Monocytes # 0.6 K/CMM 0.0 - 0.8 08/ [facility] HEMATOLOGY Basophils 0.5 % 0.0 - 1.0 08/ [facility] HEMATOLOGY Eosinophils 4.9 % 0.0 - 4.0 08/ [facility] HEMATOLOGY Monocytes 9.1 % 2.0 - 12.0 08/ [facility] HEMATOLOGY Lymphocytes 18.9 % 20.0 - 08 MH 40.0 [facility] HEMATOLOGY Segs 66.6 % 45.0 - 08 MH 75.0 [facility] HEMATOLOGY MPV 9.4 fL 7.4 - 10.4 01/16 [facility] HEMATOLOGY Platelet 168 K/CMM 133 - 450 08 [facility] HEMATOLOGY RDW 13.4 % 11.5 - 08 14.5 [facility] HEMATOLOGY MCHC 32.8 g/dL 32.0 - 08 36.0 [facility] HEMATOLOGY MCH 30.7 pg 27.0 - 08 31.0 [facility] HEMATOLOGY MCV 93.6 fL 80.0 - 01/16 98.0 [facility] HEMATOLOGY WBC 6.6 K/CMM 3.7 - 10.4 01/16 [facility] HEMATOLOGY Hct 41.0 % 36.0 - 01/16 48.0 [facility] HEMATOLOGY Hgb 13.4 g/dL 12.0 - 01/16 16.0 [facility] HEMATOLOGY RBC 4.38 M/CMM 4.20 - 08 5.40 /2015 [facility] SPECIAL Hgb A1C 10.3 % <=5.6 % 01/16 [facility] CHEM PANEL eGFR 81 01/14 Result Comment: [...] is not recommended in the following populations: [address] Individuals with unstable creatinine concentrations, including [...] mg/dL 0.50 - 07 MH Lvl 1.40 [facility] CHEM PANEL AST 7 unit/L 0 - 37 01/14 [facility] CHEM PANEL Total 5.0 g/dL 6.4 - 8.4 01/14 MH [facility] CHEM PANEL Alk Phos 73 unit/L 39 - 136 01/14 [facility] CHEM PANEL ALT 29 unit/L 0 - 65 01/14 [facility] CHEM PANEL Bili Total 0.7 mg/dL 0.2 - 1.3 01/14 [facility] CHEM PANEL Albumin Lvl 2.7 g/dL 3.5 - 5.0 01/14 [facility] CHEM PANEL AGAP 10.9 meq/L 10.0 - 01/14 MH 20.0 [facility] CHEM PANEL Calcium Lvl 10.0 mg/dL 8.5 - 10.5 01/14 [facility] CHEM PANEL Glucose Lvl 208 mg/dL 70 - 99 01/14 [facility] CHEM PANEL Potassium 3.9 meq/L 3.5 - 5.1 01/14 MH Lvl [facility] CHEM PANEL BUN 20 mg/dL 7 - 22 01/14 [facility] CHEM PANEL Sodium Lvl 145 meq/L 135 - 145 01/14 [facility] CHEM PANEL Chloride Lvl 109 meq/L 95 - 109 01/14 [facility] CHEM PANEL CO2 29 meq/L 24 - 32 01/14 [facility] CHEM PANEL B/C Ratio 27 6 - 25 01/14 [facility] CHEM PANEL A/G Ratio 1.2 0.7 - 1.6 01/14 [facility] CHEM PANEL Globulin 2.3 g/dL 2.0 - 4.0 01/14 [facility] HEMATOLOGY Monocytes 11.7 % 2.0 - 12.0 01/14 [facility] HEMATOLOGY Segs-Bands # 4.9 K/CMM 1.5 - 8.1 01/14 [facility] HEMATOLOGY Basophils 0.4 % 0.0 - 1.0 01/14 [facility] HEMATOLOGY Lymphocytes 1.3 K/CMM 1.0 - 5.5 01/14 MH # [facility] HEMATOLOGY Macrocyte 1+ None Seen 01/14 [facility]* [facility] (01/15/16 4:17 AM) HEMATOLOGY Segs 67.7 % 45.0 - 01/14 MH 75.0 [facility] HEMATOLOGY Lymphocytes 17.4 % 20.0 - 01/14 MH 40.0 [facility] HEMATOLOGY Eosinophils 2.8 % 0.0 - 4.0 01/14 [facility] HEMATOLOGY Basophils # 0.0 K/CMM 0.0 - 0.2 01/14 [facility] HEMATOLOGY Eosinophils 0.2 K/CMM 0.0 - 0.5 01/14 MH [facility] HEMATOLOGY Monocytes # 0.9 K/CMM 0.0 - 0.8 01/14 [facility] HEMATOLOGY Platelet 149 K/CMM 133 - 450 01/14 [facility] HEMATOLOGY WBC 7.3 K/CMM 3.7 - 10.4 01/14 [facility] HEMATOLOGY Hct 39.8 % 36.0 - 01/14 MH 48.0 [facility] HEMATOLOGY Hgb 13.0 g/dL 12.0 - 01/14 MH 16.0 [facility] HEMATOLOGY RBC 4.23 M/CMM 4.20 - 01/14 MH 5.40 /2015 [facility] HEMATOLOGY MCHC 32.8 g/dL 32.0 - 01/14 MH 36.0 [facility] HEMATOLOGY MCV 94.0 fL 80.0 - 01/14 MH 98.0 [facility] HEMATOLOGY MCH 30.8 pg 27.0 - 01/14 MH 31.0 [facility] HEMATOLOGY RDW 13.5 % 11.5 - 01/14 MH 14.5 [facility] HEMATOLOGY MPV 9.6 fL 7.4 - 10.4 01/14 [facility] CHEM PANEL Glucose Lvl 133 mg/dL 70 - 99 01/13 [facility] CHEM PANEL BUN 15 mg/dL 7 - 22 01/13 [facility] [facility] CHEM PANEL AGAP 11.7 meq/L 10.0 - 01/13 MH 20.0 [facility] CHEM PANEL Calcium Lvl 10.1 mg/dL 8.5 - 10.5 01/13 [facility] CHEM PANEL Potassium 3.7 meq/L 3.5 - 5.1 01/13 MH Lvl /2015 [facility] CHEM PANEL Sodium Lvl 145 meq/L 135 - 145 01/13 [facility] CHEM PANEL CO2 28 meq/L 24 - 32 01/13 [facility] CHEM PANEL Chloride Lvl 109 meq/L 95 - 109 01/13 [facility] CHEM PANEL Creatinine 0.70 mg/dL 0.50 - 01/13 MH Lvl 1.40 [facility] PANEL eGFR 86 01/13 Result Comment: The [...] is not recommended in the following populations: [address] Individuals with unstable creatinine concentrations, including [...] knee 2 views 01/12 - Views - [facility] DX DX HISTORY: Left knee pain status [...] Spine lumbar LUMBAR SPINE 4 VIEWS 01/12 [facility] lumbar 2 or 2 or 3 views /2015 - [facility] 3 views DX DX [facility] Clinical History: 75-year-old female with low [...] of the left hip without contrast 01/12 [facility] contrast contrast MRI /2015 - Formerly named [facility] HISTORY: Left hip pain status post [...] Total 4.9 g/dL 6.4 - 8.4 01/12 [facility] CHEM PANEL Alk Phos 60 unit/L 39 - 136 01/12 [facility] CHEM PANEL Bili Total 0.4 mg/dL 0.2 - 1.3 01/12 [facility] CHEM PANEL ALT 22 unit/L 0 - 65 01/12 [facility] CHEM PANEL AST 12 unit/L 0 - 37 01/12 [facility] CHEM PANEL Albumin Lvl 2.7 g/dL 3.5 - 5.0 01/12 [facility] CHEM PANEL Globulin 2.2 g/dL 2.0 - 4.0 01/12 /2015 [facility] CHEM PANEL A/G Ratio 1.2 0.7 - 1.6 01/12 [facility] CHEM PANEL B/C Ratio 23 6 - 25 01/12 [facility] HEMATOLOGY RBC 4.18 M/CMM 4.20 - 01/12 MH 5.40 /2015 [facility] HEMATOLOGY WBC 6.7 K/CMM 3.7 - 10.4 01/12 [facility] HEMATOLOGY MPV 9.3 fL 7.4 - 10.4 01/12 [facility] HEMATOLOGY Platelet 159 K/CMM 133 - 450 01/12 [facility] HEMATOLOGY RDW 12.8 % 11.5 - 01/12 MH 14. [facility] HEMATOLOGY MCH 30.7 pg 27.0 - 01/12 MH 31.0 [facility] HEMATOLOGY MCV 93.8 fL 80.0 - 01/12 MH 98.0 [facility] HEMATOLOGY Hct 39.2 % 36.0 - 01/12 MH 48.0 [facility] HEMATOLOGY Hgb 12.8 g/dL 12.0 - 01/12 MH 16.0 [facility] HEMATOLOGY MCHC 32.8 g/dL 32.0 - 01/12 MH 36.0 [facility] Lymphocytes 21.4 % 20.0 - 01/12 MH 40.0 [facility] HEMATOLOGY Segs 64.1 % 45.0 - 01/12 MH 75.0 [facility] Eosinophils 3.1 % 0.0 - 4.0 01/12 [facility] HEMATOLOGY Monocytes 10.9 % 2.0 - 12.0 01/12 [facility] HEMATOLOGY Basophils 0.5 % 0.0 - 1.0 01/12 [facility] HEMATOLOGY Basophils # 0.0 K/CMM 0.0 - 0.2 01/12 [facility] HEMATOLOGY Eosinophils 0.2 K/CMM 0.0 - 0.5 01/12 MH [facility] HEMATOLOGY Monocytes # 0.7 K/CMM 0.0 - 0.8 01/12 [facility] HEMATOLOGY Lymphocytes 1.4 K/CMM 1.0 - 5.5 01/12 [facility] Segs-Bands # 4.3 K/CMM 1.5 - 8.1 01/12 /2015 [facility] Spine Spine lumbar EXAM: MRI LUMBAR SPINE WITHOUT CONTRAST 01/11 - lumbar wo wo contrast /2015 - [facility] contrast MRI DATE: 01/11/2016 10:08 PM CDT [facility] MRI Read by: Kimani Peñaloza [...] 1.8 mg/dL 1.8 - 2.4 01/10 Lvl [facility] CHEM PANEL Phosphorus 2.0 mg/dL 2.5 - 4.5 01/10 [facility] HEMATOLOGY Basophils # 0.0 K/CMM 0.0 - 0.2 01/10 [facility] HEMATOLOGY Macrocyte 1+ [facility] (01/11/16 6:48 PM) HEMATOLOGY INR 0.99 0.85 - 01/10 1.17 [facility] HEMATOLOGY PTT 23.5 s 22.9 - 01/10 35.8 /2015 [facility] HEMATOLOGY PT 13.4 s 12.0 - 01/10 14.7 /2015 [facility] Chest 2 Chest 2 CLINICAL HISTORY: Abnormal chest sounds. 01/10 - views DX views DX - [facility] : 1940. Read by: Earl Wiggins MD [...] Spine 03/25 [facility] cervical 2 cervical - [place] or 3 view or 3 view DX [...] 09/17 - [facility] cervical 2 cervical - [place] or 3 views or 3 views DATE: [...] 03/19 - [facility] cervical 2 cervical - [place] or 3 views or 3 views This report was dictated by a Freezer Unloader/Fellow. I have personally reviewed the images as [...] 12/25 - [facility] cervical 2 cervical - [place] or 3 views or 3 views This report was dictated by a Freezer Unloader/Fellow. I have personally reviewed the images as [...] views This report was dictated by a Freezer Unloader/Fellow. I have personally reviewed the images as [...] Notify 10/06 NA [place] GLUCOSE JENNIE/ /2012 [facility] BEDSIDE Gluc POC 308 mg/dL 70 - 99 10/06 [place] 1Interpretive [facility] GLUCOSE [facility] Data: [facility] [place] Reportable Limit: 200 mg/dL. BEDSIDE Comment1 Notify 10/06 NA [place] GLUCOSE JENNIE/ /2012 [facility] BEDSIDE Gluc POC 159 mg/dL 70 - 99 10/06 [place] 2Interpretive [facility] GLUCOSE [facility] Data: [facility] Reportable Limit: 200 mg/dL. CHEMISTRY AGAP 14.3 meq/L 10.0 - 10/06 Normal [facility] 20.0 [facility] CHEMISTRY eGFR 75 10/06 NA 4Result Comment: The eGFR is calculated using the CKD-EPI formula. In most young, healthy individuals the eGFR will be > 90 mL/min/1.73m2. The eGFR declines with age. An eGFR of 60-89 may be normal in [facility] mL/min/1.7 /2012 some populations, particularly the [...] 139 meq/L 135 - 145 10/06 Normal [facility] CHEMISTRY Chloride Lvl 104 meq/L 95 - 109 10/06 Normal [facility] CHEMISTRY CO2 25 meq/L 24 - 32 10/06 Normal [facility] CHEMISTRY Calcium Lvl 10.7 mg/dL 8.5 - 10.5 10/06 HI [facility] CHEMISTRY Potassium 4.3 meq/L 3.5 - 5.1 10/06 Normal [facility] CHEMISTRY Glucose Lvl 262 mg/dL 70 - 99 10/06 [place] 6Interpretive Data: Adult reference range values reflect the clinical guidelines of the [place] [employer]. [facility] CHEMISTRY Creatinine 0.8 mg/dL 0.5 - 1.4 10/06 Normal [facility] CHEMISTRY BUN 20 mg/dL 7 - 22 10/06 Normal [facility] HEMATOLOGY Hgb 14.0 g/dL 12.0 - 10/06 Normal [facility] 16.0 [facility] HEMATOLOGY Hct 42.5 % 36.0 - 10/06 Normal [facility] 48.0 [facility] HEMATOLOGY MCV 92.3 fL 81.0 - 10/06 Normal [facility] 99.0 [facility] HEMATOLOGY MCH 30.5 pg 27.0 - 10/06 Normal [facility] 31.0 [facility] HEMATOLOGY MCHC 33.0 g/dL 32.0 - 10/06 Normal [facility] 36.0 [facility] HEMATOLOGY RDW 14.6 % 11.5 - 10/06 HI [facility] 14.5 [facility] HEMATOLOGY Platelet 215 K/CMM 133 - 450 10/06 Normal [facility] HEMATOLOGY MPV 10.0 fL 7.4 - 10.4 10/06 Normal [facility] HEMATOLOGY RBC 4.60 M/CMM 4.20 - 10/06 Normal [place] 5.40 /2012 [facility] HEMATOLOGY WBC 13.0 K/CMM 3.7 - 10.4 10/06 [facility] BEDSIDE Comment1 Notify 10/06 [facility] GLUCOSE RN/MD /2012 [facility] BEDSIDE Gluc POC 244 mg/dL 70 - 99 10/06 [place] 3Interpretive [facility] GLUCOSE [facility] Data: [facility] Upper Reportable Limit: 200 mg/dL. CHEMISTRY Magnesium 2.0 mg/dL 1.8 - 2.4 10/05 Normal [facility] Lvl [facility] Microbiolog Culture: 10/04 [facility] y Urine /2012 [facility] URINALYSIS UA <=1.0 0.1 - 1.0 10/04 [facility] Urobilinogen mg/dL Medical
*NA*< Center br/>(10/04 01:52:38) <sup> </sup> URINALYSIS UA Color Yellow Yellow 10/04 [facility] [place] (10/04/2012 01:52:38) URINALYSIS UA Bacteria Occasional /HPF None Seen 10/04 [facility] *NA* Center (10/04/2012 01:52:38) URINALYSIS UA Sq Epi Occasional /LPF Few 10/04 [facility] (10/04/2012 01:52:38) URINALYSIS UA RBC 6 /HPF 0 - 2 10/04 [facility] URINALYSIS UA Leuk Est Small Negative 10/04 [facility] (10/04/2012 01:52:38) URINALYSIS UA WBC 12 /HPF 0 - 5 10/04 [facility] URINALYSIS UA Protein 10 mg/dL Negative 10/[address] [facility]* Center (10/04/2012 01:52:38) URINALYSIS UA pH 5.0 5.0 - 8.0 10/04 Normal [facility] URINALYSIS UA Spec Grav 1.022 <=1.030 10/04 Normal [facility] URINALYSIS UA Turbidity Slight Clear 10/04 [facility] (10/04/2012 01:52:38) URINALYSIS UA Nitrite Negative Negative 10/04 Normal [facility] (10/04/2012 01:52:38) Center URINALYSIS UA Blood Small Negative 10/04 [facility] *ABN* Center (10/04/2012 01:52:38) URINALYSIS UA Bili Negative Negative 10/04 [facility] (10/04/2012 01:52:38) URINALYSIS UA Ketones Negative mg/dL Negative 10/04 [facility] [place] (10/04/2012 01:52:38) URINALYSIS UA Glucose 30 mg/dL Negative 10/[address] [facility]* [place] (10/04/2012 01:52:38) CHEMISTRY Phosphorus 3.5 mg/dL 2.5 - 4.5 10/04 Normal [facility] CHEMISTRY AGAP 13.4 meq/L 10.0 - 10/04 Normal [facility] 20.0 [facility] CHEMISTRY Glucose Lvl 181 mg/dL 70 - 99 10/04 [place] 7Interpretive Data: Adult reference range values reflect the clinical guidelines of the [place] [employer]. [facility] CHEMISTRY Creatinine 0.9 mg/dL 0.5 - 1.4 10/04 Normal [facility] CHEMISTRY BUN 17 mg/dL 7 - 22 10/04 Normal [facility] CHEMISTRY Sodium Lvl 140 meq/L 135 - 145 10/04 Normal [facility] CHEMISTRY Chloride Lvl 105 meq/L 95 - 109 10/04 Normal [facility] CHEMISTRY Calcium Lvl 9.7 mg/dL 8.5 - 10.5 10/04 Normal [facility] CHEMISTRY Potassium 4.4 meq/L 3.5 - 5.1 10/04 Normal [facility] CHEMISTRY CO2 26 meq/L 24 - 32 10/04 Normal [facility] CHEMISTRY eGFR 65 10/04 NA 5Result Comment: The eGFR is calculated using the CKD-EPI formula. In most young, healthy individuals the eGFR will be > 90 mL/min/1.73m2. The eGFR declines with age. An eGFR of 60-89 may be normal in [facility] mL/min/1. some populations, particularly the elderly, [...] - 2.4 10/04 LOW [place] Lvl /2012 [facility] HEMATOLOGY RBC 4.85 M/CMM 4.20 - 10/04 Normal [place] 5.40 /2012 [facility] HEMATOLOGY WBC 9.2 K/CMM 3.7 - 10.4 10/04 Normal [facility] HEMATOLOGY Hgb 14.9 g/dL 12.0 - 10/04 Normal [place] 16.0 /2012 [facility] HEMATOLOGY MCHC 33.3 g/dL 32.0 - 10/04 [facility] [place] 36.0 [facility] HEMATOLOGY MCH 30.7 pg 27.0 - 10/04 [facility] [place] 31.0 [facility] HEMATOLOGY Hct 44.9 % 36.0 - 10/04 [facility] [place] 48.0 /2012 [facility] HEMATOLOGY MCV 92.4 fL 81.0 - 10/04 [facility] 99.0 [facility] HEMATOLOGY RDW 14.5 % 11.5 - 10/04 [facility] [place] 14.5 [facility] HEMATOLOGY Platelet 213 K/CMM 133 - 450 10/04 Normal [facility] HEMATOLOGY MPV 9.5 fL 7.4 - 10.4 10/04 Normal [facility] HEMATOLOGY Segs-Bands # 7.7 K/CMM 1.5 - 8.1 10/04 Normal [facility] HEMATOLOGY Basophils 0.3 % 0.0 - 1.0 10/04 Normal [facility] HEMATOLOGY Monocytes # 0.6 K/CMM 0.0 - 0.8 10/04 Normal [facility] HEMATOLOGY Lymphocytes 0.9 K/CMM 1.0 - 5.5 10/04 LOW [place] # /2012 [facility] HEMATOLOGY Lymphocytes 9.5 % 20.0 - 10/04 LOW [place] 40.0 /2012 [facility] HEMATOLOGY Segs 84.1 % 45.0 - 10/04 HI MH [place] 75.0 /2012 [facility] HEMATOLOGY Monocytes 6.0 % 2.0 - 12.0 10/04 Normal [facility] HEMATOLOGY Eosinophils 0.1 % 0.0 - 4.0 10/04 Normal [facility] CHEMISTRY POC A Glu 152 mg/dL 70 - 99 10/03 HI [facility] CHEMISTRY POC A LA 0.7 mMol/L 0.5 - 2.2 10/03 Normal [facility] CHEMISTRY POC A HCO3 24 mMol/L 22 - 10/03 Normal [facility] CHEMISTRY POC A BE -1 mMol/L -2-2 - 2 10/03 Normal [facility] CHEMISTRY POC A Hct 35.0 % 36.0 - 10/03 LOW [facility] 48.0 [facility] CHEMISTRY POC A O2 Sat 96.0 % 95.0 - 10/03 Normal [facility] 100.0 [facility] CHEMISTRY POC A K 3.4 meq/L 3.5 - 5.1 10/03 LOW [facility] CHEMISTRY POC A Na 138 meq/L 135 - 145 10/03 Normal [facility] CHEMISTRY POC A PCO2 40 mm[Hg] 35 - 45 10/03 Normal [facility] CHEMISTRY POC A Ca Ion 1.26 1.16 - 10/03 Normal [place] mMol/L 1.30 [facility] CHEMISTRY POC A Source ART 10/03 NA [facility] CHEMISTRY POC A Temp 37.0 Kylah 10/03 NA [facility] CHEMISTRY POC A PO2 85 mm[Hg] 80 - 100 10/03 Normal [facility] CHEMISTRY POC A pH 7.39 7.35 - 10/03 Normal [facility] 7.45 [facility] CHEMISTRY POC A PCO2 44 mm[Hg] 35 - 45 10/03 Normal [facility] CHEMISTRY POC A BE 1 mMol/L -2-2 - 2 10/03 Normal [facility] CHEMISTRY POC A HCO3 26 mMol/L 22 - 26 10/03 Normal [facility] CHEMISTRY POC A PO2 161 mm[Hg] 80 - 100 10/03 HI [facility] CHEMISTRY POC A Na 137 meq/L 135 - 145 10/03 Normal [facility] CHEMISTRY POC A Ca Ion 1.29 1.16 - 10/03 Normal [facility] [place] mMol/L 1.30 [facility] CHEMISTRY POC A O2 Sat 99.0 % 95.0 - 10/03 Normal [place] 100.0 [facility] Center CHEMISTRY POC A K 3.9 meq/L 3.5 - 5.1 10/03 Normal [facility] Center CHEMISTRY POC A Hct 38.0 % 36.0 - 10/03 Normal [facility] 48.0 [facility] Center CHEMISTRY POC A Source ART 10/03 NA [facility] Center CHEMISTRY POC A pH 7.38 7.35 - 10/03 Normal [facility] 7.45 [facility] Center CHEMISTRY POC A Temp 37.0 Kylah 10/03 NA [facility] Center CHEMISTRY POC A Glu 150 mg/dL 70 - 99 10/03 HI [facility] Center CHEMISTRY POC A LA 1.1 mMol/L 0.5 - 2.2 10/03 Normal [facility] BLOOD BANK ABO/Rh A NEG 10/03 Unknown [facility] RESULTS [facility] BLOOD BANK Antibody Negative 10/03 Normal [facility] RESULTS [facility] (10/03/2012 09:25:00) Center Vital Signs Vital Sign Value Date Comments Source Temperature Oral (F) 97.5 F 02/14/2016 [facility] Heart Rate 65 02/14/2016 [facility] Respitory Rate 18 02/14/2016 [facility] Systolic (mm Hg) 122 02/14/2016 [facility] Diastolic (mm Hg) 54 02/14/2016 [facility] Systolic (mm Hg) 117 02/14/2016 [facility] Diastolic (mm Hg) 71 02/14/2016 [facility] Respitory Rate 18 02/14/2016 [facility] Temperature Oral (F) 97.6 F 02/14/2016 [facility] Heart Rate 61 02/14/2016 [facility] Temperature Oral (F) 97.8 F 02/14/2016 [facility] Respitory Rate 18 02/14/2016 [facility] Heart Rate 70 02/14/2016 [facility] Systolic (mm Hg) 171 02/14/2016 [facility] Diastolic (mm Hg) 82 02/14/2016 [facility] Weight 89.091 02/10/2016 [facility] Weight 89.545 02/08/2016 [facility] BMI Calculated 32.85 02/08/2016 [facility] Height 165.1 cm 02/08/2016 [facility] Weight 89.545 02/08/2016 [facility] Height 172.72 cm 02/08/2016 [facility] BMI Calculated 30.02 02/08/2016 [facility] Respitory Rate 20 01/19/2016 [facility] Systolic (mm Hg) 131 01/19/2016 [facility] Diastolic (mm Hg) 76 01/19/2016 [facility] Temperature Oral (F) 98.1 F 01/19/2016 [facility] Heart Rate 73 01/19/2016 [facility] Weight 91.864 01/19/2016 [facility] Temperature Oral (F) 99.5 F 01/19/2016 [facility] Heart Rate 59 01/19/2016 [facility] Respitory Rate 20 01/19/2016 [facility] Systolic (mm Hg) 129 01/19/2016 [facility] Diastolic (mm Hg) 68 01/19/2016 [facility] Systolic (mm Hg) 157 01/19/2016 [facility] Diastolic (mm Hg) 78 01/19/2016 [facility] Heart Rate 61 01/19/2016 [facility] Respitory Rate 16 01/19/2016 [facility] Temperature Oral (F) 97.3 F 01/19/2016 [facility] BMI Calculated 35.95 01/11/2016 [facility] Weight 97.983 01/11/2016 [facility] Height 165.1 cm 01/11/2016 [facility] Respitory Rate 33 10/06/2012 [facility] Systolic (mm Hg) 131 10/06/2012 [facility] Diastolic (mm Hg) 53 10/06/2012 [facility] Respitory Rate 16 10/06/2012 [facility] Systolic (mm Hg) 159 10/06/2012 [facility] Diastolic (mm Hg) 44 10/06/2012 [facility] Systolic (mm Hg) 146 10/06/2012 [facility] Diastolic (mm Hg) 56 10/06/2012 [facility] Respitory Rate 19 10/06/2012 [facility] Temperature Oral (F) 96.3 F 10/06/2012 [facility] Temperature Oral (F) 97.9 F 10/06/2012 [facility] Temperature Oral (F) 97.6 F 10/05/2012 [facility] Weight 91.818 10/03/2012 [facility] Height 165.1 cm 10/03/2012 [facility] Heart Rate 55 10/03/2012 [facility] Heart Rate 64 10/01/2012 [facility] Height 165.1 cm 10/01/2012 [facility] Weight 91.818 10/01/2012 [facility] Encounters Location Location Encounter Encounter Reason Attending ADM DC Status Source Details Type Number For Provider Date Date Visit [facility] Inpatient [id number] CERVICAL KERON 10/03 10/06 Active [place] [address] [facility] [place] CERVICAL DISC DISPLACE MENT WITH M [facility] Outpt Diag [id number] _MAPID:E Keron 09/17 09/18 [facility] [id number] [id number] [place] [facility] Outpt Diag [id number] Keron 03/25 03/26 [facility] [place] Outpatient [id number] [place] 12/01 Active [facility] [id number] [place] 12/14 Active [facility] [id number] KATALINA 12/14 Active [facility] 2 [facility] [id number] [place] 12/14 [facility] [place] [facility] Pre Admit [id number] Joao 01/10 01/10 [place] 7 [facility] Inpatient [id number] Joao 01/10 01/18 [place] 8 [facility] Outpatient [id number] KATALINA 01/16 Active [facility] [place] Outpatient [id number] [place] 02/07 Active [facility] Inpatient [id number] [place] 02/07 02/14 [facility] Outpatient [id number] KATALINA 03/09 Active [facility] [id number] [place] 03/27 Active [facility] [id number] [place] 04/21 Active [facility] [place] Outpatient [id number] [place] 06/30 [facility] [place] [facility] [place] Procedures Procedure Code Date Perfomer Comments Source Operation [id number] 1abscess [facility] <sup>1</sup> [facility]/ [facility] Cervical [id number] [facility] discectomy [facility] Knee [id number] bilateral [facility] replacement<sup> [facility] 1</sup> Operation<sup>2< [id number] abscess [facility] /sup> drainage/ [facility] of[facility]-rectal
--- OUTSIDE RECORDS SUMMARY | 2018-05-31 21:17 | XMS REPORT | CCD ---
:1940 Author Organization [facility] Outpatient Imaging [place] Care Team Providers Name Role Phone Keron Thomas Consulting Provider Allergies, Adverse Reactions, Alerts Substance Reaction Status NKDA Active Problem List Condition Effective Dates Status Diabetes mellitus Resolved GERD - Gastro-esophageal reflux disease Resolved HLD - Hyperlipidemia Resolved HTN - Hypertension Resolved Neuropathy Resolved
--- OUTSIDE RECORDS SUMMARY | 2018-05-31 21:17 | XMS REPORT | CCD ---
:1940 Author Organization [facility] Outpatient Imaging [place] Care Team Providers Name Role Phone Keron Thomas Consulting Provider Allergies, Adverse Reactions, Alerts Substance Reaction Status NKDA Active Problem List Condition Effective Dates Status Diabetes mellitus Resolved GERD - Gastro-esophageal reflux disease Resolved HLD - Hyperlipidemia Resolved HTN - Hypertension Resolved Neuropathy Resolved
--- OUTSIDE RECORDS SUMMARY | 2018-05-31 21:17 | XMS REPORT | CCD ---
:1940 Author Organization [facility] Care Team Providers Name Role Phone Keron [...] date: 10/04/12 0:00:00, SBP > 150 mmHg [place] 10/325 oral tablet 1-2 tab, PO, Q4-6H, [...] date: 11/02/12 9:00:00 Dulcolax Laxative 1 supp, [place], Daily, 10/01/2012 Ordered PRN, 5 supp, constipation, [...] amLODipine Substitution Allowed 10/03/2012 Ordered HYDROmorphone 0.5mg/mL [employer] 15 mg, 30 mL, Route: 10/03/2012 10/04/2012 Discontinued (15mg/30 mL) 15 mg IV, [employer] Dose: 0.3 mg, [employer] Lockout: 15 minutes, 4 Hour Limit (In [...] values reflect the clinical guidelines of the [place] [employer].7Interpretive Data: Adult reference range values reflect the clinical guidelines of the [place] [employer].HEMATOLOGY Most recent to oldest [Reference [...]
--- OUTSIDE RECORDS SUMMARY | 2018-05-31 21:17 | XMS REPORT | CCD ---
:1940 Author Organization [facility] Outpatient Imaging [place] Care Team Providers Name Role Phone Keron Thomas Consulting Provider Allergies, Adverse Reactions, Alerts Substance Reaction Status NKDA Active Problem List Condition Effective Dates Status Diabetes mellitus Resolved GERD - Gastro-esophageal reflux disease Resolved HLD - Hyperlipidemia Resolved HTN - Hypertension Resolved Neuropathy Resolved
[2018-05-31 22:15] LABS: Absolute Lymphocytes (CBC) 1.1 K/uL (0.7-4.9); Absolute Monocytes 0.8 K/uL (0.1-1.3); Absolute Neutrophil 4.4 K/uL (1.8-8.0); Basophils % 0.7 % (0-1.3); Eosinophils % 3.2 % (0-4.4); Hematocrit 47.4 % (36.0-45.0); Lymphocytes % 16.7 % (15.3-44.8); MCH 31.4 pg (27.0-35.0); MCV 94.6 fL (80-100); MPV 10.4 fL (7.6-11.3); Monocytes % 12.2 % (3.3-12.3); RBC Red Blood Cell Count 5.01 M/uL (3.86-4.86)
[2018-05-31 22:29] LABS: Albumin 3.4 g/dL (3.4-5.0); Bilirubin Direct 0.1 mg/dL (0-0.2); Bilirubin Total 0.6 mg/dL (0.2-1.0); Potassium 4.6 mmol/L (3.5-5.1)
--- NOTE | 2018-05-31 22:34 | EDPHYS ---
Physician Documentation [facility] Name: Kate Love Age: 77 yrs Sex: Female : 1940 Arrival Date: 05/31/2018 Time: 21:11 Bed 5 Private MD: ED Physician Nadia Love HPI: 05/31 21:38 This 77 yrs old Female presents to ER via Ambulatory with complaints of Back ma2 Pain. 21:38 Onset: The symptoms/episode began/occurred gradually, 4 day(s) ago. The pain does not ma2 radiate. Severity of symptoms: At their worst the symptoms were moderate, in the emergency department the symptoms are unchanged. The patient has experienced similar episodes in the past. chronic back pain here with constipation x 4 days no bm, has normal urinary output, back is not changed no fever or weakness . Historical: - Allergies: 21:23 No Known Allergies; aj1 - Home Meds: 21:23 amlodipine 10 mg tab 1 tab once daily [Active]; aspirin 81 mg Oral TbEC 1 tab once aj1 daily [Active]; Breo Ellipta 100-25 mcg/dose inhalation dsdv 1 puff once daily [Active]; carvedilol 12.5 mg Oral tab 2 times per day [Active]; clonidine HCl 0.1 mg Oral Tb12 as needed for Hypertension [Active]; furosemide 20 mg Oral tab 1 tab once daily [Active]; glimepiride 4 mg Oral tab 2 tab once daily [Active]; irbesartan 300 mg Oral tab 1 tab once daily [Active]; irbesartan 300 mg Oral tab 1 tab once daily [Active]; Levemir subcutaneous [Active]; Soliqua 54 unit before breakfast [Active]; spironolactone 25 mg Oral tab 1 tab once daily [Active]; Tradjenta 5 mg Oral tab 1 tab once daily [Active]; Vitamin D Oral 30011 unit WEEKLY [Active]; - PMHx: 21:23 Diabetes - IDDM; Hyperlipidemia; Hypertension; aj1 - Immunization history:: Flu vaccine is up to date. - Social history:: Smoking status: Patient/guardian denies using tobacco, Patient/guardian denies using alcohol, The patient lives alone, with family. - Ebola Screening: : Patient denies travel to an Ebola-affected area in the 21 days before illness onset. - Family history:: not pertinent. - Hospitalizations: : No recent hospitalization is reported. ROS: 21:38 Constitutional: Negative for fever, chills, and weight loss, Cardiovascular: Negative ma2 for chest pain, palpitations, and edema, Respiratory: Negative for shortness of breath, cough, wheezing, and pleuritic chest pain, Back: Negative for injury and pain. 21:38 Abdomen/GI: Positive for constipation, Negative for abdominal pain, nausea and vomiting, nausea, vomiting, and diarrhea, vomiting, abdominal distension, dysphagia, rectal pain, bowel incontinence. 21:38 All other systems are negative. Exam: 21:38 Constitutional: This is a well developed, well nourished patient who is awake, alert, ma2 and in no acute distress. Chest/axilla: Normal chest wall appearance and motion. Nontender with no deformity. No lesions are appreciated. Cardiovascular: Regular rate and rhythm with a normal S1 and S2. No gallops, murmurs, or rubs. Normal PMI, no JVD. No pulse deficits. Respiratory: Lungs have equal breath sounds bilaterally, clear to auscultation and percussion. No rales, rhonchi or wheezes noted. No increased work of breathing, no retractions or nasal flaring. Abdomen/GI: Soft, non-tender, with normal bowel sounds. No distension or tympany. No guarding or rebound. No evidence of tenderness throughout. MS/ Extremity: Pulses equal, no cyanosis. Neurovascular intact. Full, normal range of motion. Neuro: Awake and alert, GCS 15, oriented to person, place, time, and situation. Cranial nerves II-XII grossly intact. Motor strength 5/5 in all extremities. Sensory grossly intact. Cerebellar exam normal. Normal gait. Vital Signs: 21:23 BP 160 / 79; Pulse 69; Resp 18; Temp 97.4; Pulse Ox 96% on R/A; Weight 97.52 kg (R); aj1 Height 5 ft. 5 in. (165.10 cm) (R); 22:54 BP 153 / 78; Pulse 63; Resp 16 S; Temp 98.3(O); Pulse Ox 93% on R/A; bb 21:23 Body Mass Index 35.78 (97.52 kg, 165.10 cm) aj1 MDM: 21:25 Patient medically screened. ma2 21:38 Differential diagnosis: constipation. me2 22:32 Data reviewed: vital signs, nurses notes, lab test result(s). Response to treatment: ma2 the patient's symptoms have resolved after treatment. ED course: had a bm and symptoms resolved . 05/31 21:37 Order name: Basic Metabolic Panel [facility] 05/31 21:37 Order name: CBC with Diff; Complete Time: 22:27 [facility] 05/31 21:37 Order name: Creatinine for Radiology [facility] 05/31 21:37 Order name: Hepatic Function me2 05/31 21:37 Order name: Lipase [facility] 05/31 21:37 Order name: IV Saline Lock; Complete Time: 21:58 [facility] 05/31 21:37 Order name: Labs collected and sent; Complete Time: 21:58 [facility] Administered Medications: 21:58 Drug: enema 1 amp Route: MS; bb 22:56 Follow up: Response: Marked relief of symptoms bb Disposition: 05/31/18 22:33 Discharged to Home. Impression: Constipation, unspecified. - Condition is Stable. - Discharge Instructions: Constipation, Adult. - Prescriptions for Lactulose 10 gram/15 mL Oral Solution - take 30 milliliter by ORAL route once daily; 300 milliliter. - Medication Reconciliation Form, Thank You Letter, Antibiotic Education, Prescription Opioid Use form. - Follow up: Private Physician; When: Tomorrow; Reason: Continuance of care. - Problem is new. - Symptoms are resolved. Signatures: Dispatcher [employer] Jennifer Rebollar RN RN aj1 Peyton Quezada RN RN bb Nadia Love MD MD ma2 Corrections: (The following items were deleted from the chart) 22:56 22:33 05/31/2018 22:33 Discharged to Home. Impression: Constipation, unspecified. bb Condition is Stable. Forms are Medication Reconciliation Form, Thank You Letter, Antibiotic Education, Prescription Opioid Use. Follow up: Private Physician; When: Tomorrow; Reason: Continuance of care. Problem is new. Symptoms are resolved. ma2
--- NOTE | 2018-05-31 22:34 | ER ---
Nurse's Notes [facility] Name: Kate Love Age: 77 yrs Sex: Female : 1940 Arrival Date: 05/31/2018 Time: 21:11 Bed 5 Private MD: Diagnosis: Constipation, unspecified Presentation: 05/31 21:19 Presenting complaint: Patient states: "I think I'm impacted." Patient states that her aj1 last bowel movement was 5 days ago . Patient's states that he gave her an enema at home and it came back bloody. Patient states that she has tried Miralax, suppositories, and a Fleet enema with no relief. Transition of care: patient was not received from another setting of care. Onset of symptoms was May 26, 2018. Risk Assessment: Do you want to hurt yourself or someone else? Patient reports no desire to harm self or others. Initial Sepsis Screen: Does the patient meet any 2 criteria? No. Patient's initial sepsis screen is negative. Does the patient have a suspected source of infection? No. Patient's initial sepsis screen is negative. Care prior to arrival: None. 21:19 Method Of Arrival: Ambulatory aj1 21:19 Acuity: AURELIA 3 aj1 Triage Assessment: 21:23 General: Appears in no apparent distress. uncomfortable, Behavior is calm, cooperative, aj1 appropriate for age. Pain: Pain currently is 4 out of 10 on a pain scale. Neuro: Level of Consciousness is awake, alert, obeys commands. Cardiovascular: Patient's skin is warm and dry. Respiratory: Airway is patent Respiratory effort is even, unlabored, Respiratory pattern is regular, symmetrical. Musculoskeletal: Range of motion: intact in all extremities. Historical: - Allergies: 21:23 No Known Allergies; aj1 - Home Meds: 21:23 amlodipine 10 mg tab 1 tab once daily [Active]; aspirin 81 mg Oral TbEC 1 tab once aj1 daily [Active]; Breo Ellipta 100-25 mcg/dose inhalation dsdv 1 puff once daily [Active]; carvedilol 12.5 mg Oral tab 2 times per day [Active]; clonidine HCl 0.1 mg Oral Tb12 as needed for Hypertension [Active]; furosemide 20 mg Oral tab 1 tab once daily [Active]; glimepiride 4 mg Oral tab 2 tab once daily [Active]; irbesartan 300 mg Oral tab 1 tab once daily [Active]; irbesartan 300 mg Oral tab 1 tab once daily [Active]; Levemir subcutaneous [Active]; Soliqua 54 unit before breakfast [Active]; spironolactone 25 mg Oral tab 1 tab once daily [Active]; Tradjenta 5 mg Oral tab 1 tab once daily [Active]; Vitamin D Oral 18144 unit WEEKLY [Active]; - PMHx: 21:23 Diabetes - IDDM; Hyperlipidemia; Hypertension; aj1 - Immunization history:: Flu vaccine is up to date. - Social history:: Smoking status: Patient/guardian denies using tobacco, Patient/guardian denies using alcohol, The patient lives alone, with family. - Ebola Screening: : Patient denies travel to an Ebola-affected area in the 21 days before illness onset. - Family history:: not pertinent. - Hospitalizations: : No recent hospitalization is reported. Screenin:32 Abuse screen: Denies threats or abuse. Nutritional screening: No deficits noted. bb Tuberculosis screening: No symptoms or risk factors identified. Fall Risk None identified. Assessment: 21:32 General: Appears in no apparent distress. uncomfortable, obese, Behavior is calm, bb cooperative. Pain: Complains of pain in back. Neuro: Level of Consciousness is awake, alert, obeys commands, Oriented to person, place, time, situation. Cardiovascular: Heart tones S1 S2 present. Respiratory: Airway is patent Respiratory effort is even, unlabored, Respiratory pattern is regular. GI: Abdomen is obese, Bowel sounds present X 4 quads. Abd is soft and non tender X 4 quads. Reports constipation. : No signs and/or symptoms were reported regarding the genitourinary system. Derm: Skin is pink, warm \\T\\ dry. Musculoskeletal: Circulation, motion, and sensation intact. 22:53 Reassessment: Patient and/or family updated on plan of care and expected duration. Pain bb level reassessed. Patient is alert, oriented x 3, equal unlabored respirations, skin warm/dry/pink. pt verbalized understanding of and agrees to plan of care discharge instructions given pt ambulated with steady gait to exit accompanied by spouse Patient states feeling better. Patient states symptoms have improved. Vital Signs: 21:23 BP 160 / 79; Pulse 69; Resp 18; Temp 97.4; Pulse Ox 96% on R/A; Weight 97.52 kg (R); aj1 Height 5 ft. 5 in. (165.10 cm) (R); 22:54 BP 153 / 78; Pulse 63; Resp 16 S; Temp 98.3(O); Pulse Ox 93% on R/A; bb 21:23 Body Mass Index 35.78 (97.52 kg, 165.10 cm) aj1 ED Course: 21:11 Patient arrived in ED. al2 21:21 Triage completed. aj1 21:23 Arm band placed on Patient placed in an exam room. aj1 21:25 Nadia Love MD is Attending Physician. ma2 21:32 Peyton Quezada RN is Primary Nurse. bb 21:32 Patient has correct armband on for positive identification. Placed in gown. Bed in low bb position. Call light in reach. Side rails up X 1. Adult w/ patient. Pulse ox on. NIBP on. Warm blanket given. 21:50 Inserted saline lock: 20 gauge in right antecubital area, using aseptic technique. ea Blood collected. 21:58 Soap suds enema given. Patient tolerated well. bb 22:55 No provider procedures requiring assistance completed. IV discontinued, intact, bb bleeding controlled, No redness/swelling at site. Pressure dressing applied. Administered Medications: 21:58 Drug: enema 1 amp Route: CO; bb 22:56 Follow up: Response: Marked relief of symptoms bb Outcome: 22:33 Discharge ordered by . ma2 22:55 Discharged to home ambulatory, with family. bb 22:55 Condition: improved 22:55 Discharge instructions given to patient, Instructed on discharge instructions, follow up and referral plans. medication usage, Demonstrated understanding of instructions, follow-up care, medications, Prescriptions given X 1. 22:56 Patient left the ED. bb Signatures: Jennifer Thomas RN RN aj1 Peyton Quezada RN RN bb Antunez, Elena, RN RN ea Love, Angelica al2 Nadia Love MD MD ma2
[2018-06-01 01:31] VITALS: BP 153/78; TEMP 98.3; O2SAT 93
== END 2018-05-31 22:56 | disposition home or self-care (01) ==
LOC: ER 21:09
DX: K59.00 Constipation, unspecified (principal); I10 Essential (primary) hypertension; E11.9 Type 2 diabetes mellitus without complications; E78.5 Hyperlipidemia, unspecified; Z79.4 Long term (current) use of insulin; Z79.82 Long term (current) use of aspirin
CPT/HCPCS: 36415; 80048; 80076; 83690; 85025; 99284

== ENCOUNTER 2019-12-13 12:47 | Emergency (ER) | payer OTHER ==
--- OUTSIDE RECORDS SUMMARY | 2019-12-13 12:50 | XMS REPORT | Clinical Summary ---
:1940 Author Organization [facility] Address [address] [place] [address] Care Team Providers Name Role Phone Sae Paz MD Primary Care Provider Allergies No Known Allergies Medications Medication Sig Dispensed Refills Start End Status Date Date ACCU-CHEK CORTEZ PLUS 2 (two) times 3 12/04/19 Active TEST STRP strip test a day. for 19 strips testing VITAMIN D2 50,000 unit TAKE ONE 11/26/19 Active capsule CAPSULE BY 19 MOUTH ONE TIME PER WEEK gabapentin (NEURONTIN) TAKE 1 3 12/11/19 Active 300 mg capsule CAPSULE BY 19 MOUTH THREE TIMES A DAY ACCU-CHEK MULTICLIX USE 3 12/04/19 Active LANCET lancets DIRECTED 19 TWICE A DAY, DIAGNOSIS E11.9 SOLIQUA 100/33 100 INJECT UNDER 6 10/29/19 Active unit-33 mcg/mL insulin THE SKIN 30 19 pen UNITS EVERY MORNING AND INCREASE TO 60 DIRECTED TRADJENTA 5 mg tablet Take 5 mg by 2 11/29/19 Active mouth daily. 19 metFORMIN XR TAKE 1 TABLET 2 11/11/19 Act pat (GLUCOPHAGE-XR) 500 mg BY MOUTH 19 24 hr tablet EVERY DAY IN THE EVENING WITH DINNER amLODIPine (NORVASC) 5 Take 5 mg by 0 Active mg tablet mouth daily. aspirin (ECOTRIN) 81 MG Take 81 mg by 0 Active enteric coated tablet mouth daily. irbesartan (AVAPRO) 300 Take 300 mg 0 Active MG tablet by mouth nightly. clonIDINE (CATAPRES) Take 0.1 mg 0 Active 0.1 MG tablet by mouth 2 (two) times a day. As needed spironolactone Take 25 mg by 0 A ctive (ALDACTONE) 25 MG mouth daily. tablet furosemide (LASIX) 20 Take 20 mg by 0 Active mg tablet mouth 2 (two) times a day. As needed polyethylene glycol Take 17 g by 0 Active (MIRALAX) 17 gram mouth daily. packet As needed carvedilol (COREG) 25 Take 25 mg by 0 Active MG tablet mouth 2 (two) times a day with meals. cholecalciferol, Take 1,000 0 Ac tive vitamin D3, (VITAMIN Units by D3) 1,000 unit capsule mouth daily. pitavastatin calcium Take 2 mg by 0 Active (LIVALO) 1 mg tablet mouth nightly. insulin degludec Inject under 0 Active (TRESIBA U-100 INSULIN the skin. SUBQ) dulaglutide (Trulicity) Inject under 0 Active 1.5 mg/0.5 mL pen the skin. injector cinacalcet (SENSIPAR) Take 1 tablet 90 tablet 4 12/03/1902/16 0 Active 30 MG tablet (30 mg total) 20 021 by mouth daily. amLODIPine (NORVASC) 10 Take 5 mg by 6 11/19/1911/17 Discontinued mg tablet mouth daily. 19 019 (Therap y completed) cinacalcet (SENSIPAR) Take 1 tablet 60 tablet 2 01/22/2004/18 Discontinued 30 MG tablet (30 mg total) 19 019 (Re order) by mouth 2 (two) times a day for 90 days. cinacalcet (SENSIPAR) TAKE 1 TABLET 60 tablet 2 04/28/2005/18 Discontinued 30 MG tablet (30 MG TOTAL) 19 019 (Re order) BY MOUTH 2 (TWO) TIMES A DAY FOR 90 DAYS. cinacalcet (SENSIPAR) Take 1 tablet 180 tablet 3 06/03/2003/08 30 MG (30 mg total) 19 020 tabletIndications: by mouth 2 Primary (two) times a hyperparathyroidism day for 90 (HCC), Hypercalcemia days. Active Problems Problem Noted Date Hypercalcemia 12/23/2018 Primary hyperparathyroidism 12/23/2018 Encounters Date Type Specialty Care Team Description 12/03/2019 Office Visit Endocrinology Devan Quinones Hypercalcemia (Primary Dx); MD Joselito Primary hyperpa rathyroidism (HCC) 12/03/2019 Travel 06/03/2019 Office Visit Endocrinology Devan Quinones Primary hyper parathyroidism (HCC) (Primary Dx); MD Joselito Hypercalcemia 05/02/2019 Telephone Endocrinology Rut Nicolas MA 04/28/2019 Refill Endocrinology Devan Quinones MD 01/21/2019 Office Visit Endocrinology Devan Quinones Primary hyper parathyroidism (HCC) (Primary Dx); MD Joselito Hypercalcemia 01/02/2019 Orders Only Endocrinology ProviderKhai MD 12/30/2018 Hospital Encounter Radiology Devan Quinones MD 12/30/2018 Hospital Encounter Radiology Devan Quinones Primary hyperparathyroidism MD Joselito (HCC) 12/23/2018 Office Visit Endocrinology Devan Quinones Primary hyper parathyroidism (HCC) (Primary Dx); MD Joselito Hypercalcemia after 2018 Social History Tobacco Use Types Packs/Day Years Used Date Never Smoker Smokeless Tobacco: Never Used Alcohol Use Drinks/Week oz/Week Comments Yes Sex Assigned at Date Recorded Not on file Job Start Date Occupation Industry Not on file Not on file Not on file Travel History Travel Start Travel End No recent travel history available. COVID-19 Exposure Response Date Recorded In the last month, have you been in contact with No / Unsure 12/03/2019 10:11 AM CDT someone who was confirmed or suspected to have Coronavirus / COVID-19? Last Filed Vital Signs Vital Sign Reading Time Taken Comments Blood Pressure 125/58 12/03/2019 10:13 AM CDT Pulse 60 12/03/2019 10:13 AM CDT Temperature 36.4 C (97.5 F) 12/23/2018 1:16 PM CDT Respiratory Rate - - Oxygen Saturation - - Inhaled Oxygen Concentration - - Weight 99.8 kg (220 lb) 12/03/2019 10:13 AM CDT Height 165.1 cm (5' 5") 06/03/2019 11:12 AM [employer] Body Mass Index 36.61 06/03/2019 11:12 AM [employer] Plan of Treatment Health Maintenance Due Date Last Done Comments DIABETIC RETINAL EYE EXAM 1940 DIABETIC FOOT EXAM 12/13/1950 URINE MICROALBUMIN 12/13/1951 SHINGLES VACCINES (#1) 12/13/1991 65+ PNEUMOCOCCAL VACCINE (1 of 2 - PCV13) 2006 INFLUENZA VACCINE 01/17/2020 Procedures Procedure Name Priority Date/Time Associated Diagnosis Comme nts PHOSPHORUS LEVEL Routine 01/28/2019 11:01 Primary Results for AM CDT hyperparathyroid ism (HCC) this procedure Hypercalcemia are in the results section. VITAMIN D 1,25 Routine 01/28/2019 11:01 Primary Results f or DIHYDROXY LEVEL, AM CDT hyperparathyroi dism (HCC) this procedure SERUM Hypercalcemia are in the results section. VITAMIN D 25 HYDROXY Routine 01/28/2019 11:01 Primary Res ults for LEVEL AM CDT hyperparathyroid ism (HCC) this procedure Hypercalcemia are in the results section. PARATHYROID HORMONE Routine 01/28/2019 11:01 Primary Resu lts for AM CDT hyperparathyroid ism (HCC) this procedure Hypercalcemia are in the results section. BASIC METABOLIC Routine 01/28/2019 11:01 Primary Results for PANEL AM CDT hyperparathyroid ism (HCC) this procedure Hypercalcemia are in the results section. BONE DENSITY Routine 01/02/2019 NM PARATHYROID Routine 12/30/2018 12:48 Primary Results f or PLANAR W SPECT AND PM CDT hyperparathyroidism (H CC) this procedure CT are in the results section. PHOSPHORUS LEVEL Routine 12/25/2018 1:01 Primary Results for PM CDT hyperparathyroid ism (HCC) this procedure Hypercalcemia are in the results section. CALCIUM LEVEL, Routine 12/25/2018 1:01 Primary Results f or URINE, 24 HOUR PM CDT hyperparathyroid ism (HCC) this procedure Hypercalcemia are in the results section. COMPREHENSIVE Routine 12/25/2018 1:01 Primary Results fo r METABOLIC PANEL PM CDT hyperparathyroid ism (HCC) this procedure Hypercalcemia are in the results section. PARATHYROID HORMONE Routine 12/25/2018 1:01 Primary Resu lts for PM CDT hyperparathyroid ism (HCC) this procedure Hypercalcemia are in the results section. after 2018 Results Vitamin D 1,25 dihydroxy level, serum (01/28/2019 11:01 AM CDT) Vit D, 57 18 - 72 [facility] 1,25-Dihydroxy pg/mL VINNY ESCOBAR Vitamin D2, 1,25 14 pg/mL [facility] (OH)2 VINNY ESCOBAR Vitamin D2, 1,25 43 pg/mL [facility] (OH)2 Comment: VINNY ESCOBAR Vitamin D3, 1,25(OH)2 indicates both endogenous production and supplementation. Vitamin D2, 1,25(OH)2 is an indicator of exogenous sources, such as diet or supplementation. Interpretation and therapy are based on measurement of Vitamin D, 1,25 (OH)2, Total. This test was developed and its analytical performanc e characteristics have been determined by [facility]. It has not been cleared or approve d by the US Food and Drug Administration. This assay has been jose ramon dated pursuant to the CLIA regulations and is used for clini montse purposes. Specimen Blood Narrative Performed At FASTING:NO [facility] FASTING: NO Resulting Agency Comment Performing Organization Information: Site ID: [id number] Name: [facility] Address: [address] [place] [phone] Director: Mark Mcbride M.D., Ph. D Performing Organization Address City/[facility] Phone Number [facility] [address] [address] Vitamin D 25 hydroxy level (01/28/2019 11:01 AM CDT) [facility] Vitamin D, 48 30 - 100 [facility] 25-hydroxy Comment: ng/mL [place] Vitamin D Status 25-OH Vitamin D: Deficiency: <20 ng/mL Insufficiency: 20 - 29 ng/mL Optimal: > or = 30 ng/mL For 25-OH Vitamin D testing on patients on D2-supplementation and patients for whom quantitation of D2 and D3 fractions is required, the [facility](T M) 25-OH VIT D, (D2,D3), LC/MS/MS is recommended: order code 07563 (patients >2yrs). For more information on this test, go to: http://education.Atlas Apps/faq/GAP130 (This link is being provided for informational/educational purposes only.) Specimen Blood Narrative Performed At FASTING:NO [facility] FASTING: NO Resulting Agency Comment Performing Organization Information: Site ID: [id number] Name: [facility] Address: [address] [place] [address] Director: Torsten Gil Performing Organization Address City/[facility]/Zipcode Phone Number [facility] [address] [address] Phosphorus level (01/28/2019 11:01 AM CDT)Only the most recent of2 resultswithin the time period is included. Pathologist Sig nature Phosphorus 2.7 2.1 - 4.3 mg/dL [facility] [place] Specimen Blood Narrative Performed At FASTING:NO [facility] FASTING: NO Resulting Agency Comment Performing Organization Information: Site ID: [id number] Name: [facility] Address: [address] [place] [phone] Director: Torsten Gil Performing Organization Address City/[facility]code Phone Number [facility] [place] [address] [place] [phone] Parathyroid hormone (01/28/2019 11:01 AM CDT)Only the most recent of2 results within the time period is included. PTH 56 14 - 64 pg/mL [facility] Comment: AppGeekCHRISTEL Abdullahi II Interpretive Guide Intact PTH Calc ium ---- --- Normal Parathyroid Normal No rmal Hypoparathyroidism Low or Low Normal Low Hyperparathyroidism Primary Normal or High H igh Secondary High Normal or Low Tertiary High High Non-Parathyroid Hypercalcemia Low or Low Normal High Specimen Blood Narrative Performed At FASTING:NO [facility] FASTING: NO Resulting Agency Comment Performing Organization Information: Site ID: [id number] Name: [facility] Address: [address] [place] [phone] Director: Dr. Torsten pennington Performing Organization Address [facility] Hospitalcode Phone Number [facility] [place] [address] Basic metabolic panel (01/28/2019 11:01 AM CDT) Glucose 54 (L) 65 - 139 [facility] Comment: mg/dL [place] Non-fasting reference interval BUN 47 (H) 7 - 25 mg/dL [facility] [place] Creatinine 1.23 (H) 0.60 - 0.93 [facility] Comment: mg/dL [place] For patients >49 years of age, the reference limit for Creatinine is approximately 13% higher for people identified as -Welsh. EGFR Non-Afr. 42 (L) > OR = 60 [facility] [place] mL/min/1.73m [place] 2 EGFR 49 (L) > OR = 60 [facility] [place] mL/min/1.73m [place] 2 BUN/creatinine 38 (H) 6 - 22 [facility] ratio (calc) [place] Sodium 144 135 - 146 [facility] mmol/L [place] Potassium 4.3 3.5 - 5.3 [facility] mmol/L [place] Chloride 106 98 - 110 [facility] mmol/L [place] CO2 29 20 - 32 [facility] mmol/L [place] Calcium 11.1 (H) 8.6 - 10.4 [facility] mg/dL [place] Specimen Blood Narrative Performed At FASTING:NO [facility] FASTING: NO Resulting Agency Comment Performing Organization Information: Site ID: [id number] Name: [facility] Address: [address] [place] [phone] Director: Torsten Gil Performing Organization Address City/State/Zipcode Phone Number [facility] [place] [address] [place] [phone] Bone Density (01/02/2019) Narrative Performed At This result has an attachment that is no t available. [place] Parathyroid Planar W Spect And Ct (12/30/2018 12:48 PM CDT) Specimen Narrative Performed At PROCEDURE: NM PARATHYROID PLANAR W SPE CT AND CT RADIANT INDICATION: Hyperparathyroidism. Hyp ercalcemia. TECHNIQUE: The patient was injected with 25 mCi of Tc- 99m sestamibi, IV. Immediately after injection, planar and SPECT-CT imagi ng of the neck and chest was performed. Approximately three hours after i njection, repeat planar images of the neck and chest were acquired. FINDINGS: Imaging is limited, due to patient claustr ophobia. No abnormal tracer accumulation with subsequent retention is seen. No suspicious uptake outside the thyroid bed. Limited C T images appear to demonstrates nodularity in the left uppe r lobe. There appears to be some nodularity posterior and inf erior to the left lower thyroid pole, not well evaluated, due to beam vargas rdening artifact from hardware in both shoulders. IMPRESSION: 1. Unable to localize a parathyroid adenoma. This study is limited by patient claustrophobia. Subtle nodularity in the left thyroid bed is likely too small to characterize with this modality and may be better characterized with a 4D neck CT. 2. Apparent nodularity in the left upper lobe. Thi s would be better evaluated with chest CT. [facility]-[id number] Procedure Note Interface, Radiology Results Incoming - 12/30/2018 1:32 PM CDT PROCEDURE: NM PARATHYROID PLANAR W SPECT AND CT INDICATION: Hyperparathyroidism. Hyper calcemia. TECHNIQUE: The patient was injected with 25 mCi of Tc-99m sestamibi, IV. Immediately after injection, planar and SPECT-CT imaging of the neck and chest was performed. Approximately three hours after injection, repeat planar images of the neck and chest were acquired. FINDINGS: Imaging is limited, due to pa tient claustrophobia. No abnormal tracer accumulation with subsequent retention is seen. No suspicious uptake outside the thyroid bed. Limited CT images appear to demonstrates nodularity in the left upper lobe. There appears to be some nodularity pos terior and inferior to the left lower thyroid pole, not well evaluated, due to beam hardening artifact from hardware in both shoulders. IMPRESSION: 1. Unable to localize a parathyroid alea noma. This study is limited by patient claustrophobia. Subtle nodularity in the left thyroid bed is likely too small to characterize with this modality and may be better characterized with a 4D neck CT. 2. Apparent nodularity in the left uppe r lobe. This would be better evaluated with chest CT. [facility]-[id number] Performing Organization Address [facility]/Zipcode Phone Number [facility] [address] [place] [address] Calcium level, urine, 24 hour (12/25/2018 1:01 PM CDT) Calcium, 24 hour 109 mg/24 h [facility] urine Comment: [place] Reference Range 35-250 Low calcium t 35-200 URINE VOLUME: 1950/24 Specimen Urine Narrative Performed At FASTING:NO [facility] FASTING: NO Resulting Agency Comment Performing Organization Information: Site ID: [id number] Name: [facility] Address: [address] [place] [phone] Director: Carol Russlel Performing Organization Address City/[facility]/Zipcode Phone Number [facility] [place] [address] [place] [phone] Comprehensive metabolic panel (12/25/2018 1:01 PM CDT) Glucose 196 (H) 65 - 139 [facility] Comment: mg/dL [place] Non-fasting reference interval BUN, whole blood 37 (H) 7 - 25 mg/dL [facility] [place] Creatinine 1.24 (H) 0.60 - 0.93 [facility] Comment: mg/dL [place] For patients >49 years of age, the reference limit for Creatinine is approximately 13% higher for people identified as -Welsh. EGFR Non-Afr. 42 (L) > OR = 60 [facility] [place] mL/min/1.73m [place] 2 EGFR 49 (L) > OR = 60 [facility] [place] mL/min/1.73m [place] 2 BUN/creatinine 30 (H) 6 - 22 [facility] ratio (calc) [place] Sodium 136 135 - 146 [facility] mmol/L [place] Potassium 5.4 (H) 3.5 - 5.3 [facility] mmol/L [place] Chloride 100 98 - 110 [facility] mmol/L [place] CO2 30 20 - 32 [facility] mmol/L [place] Calcium 11.0 (H) 8.6 - 10.4 [facility] mg/dL [place] Protein 6.1 6.1 - 8.1 [facility] g/dL [place] Albumin, S 3.9 3.6 - 5.1 [facility] g/dL [place] Globulin, total 2.2 1.9 - 3.7 [facility] g/dL (calc) [place] Albumin/globulin 1.8 1.0 - 2.5 [facility] ratio (calc) [place] Total bilirubin 0.6 0.2 - 1.2 [facility] mg/dL [place] Alkaline 66 33 - 130 U/L [facility] phosphatase [place] AST 14 10 - 35 U/L [facility] [place] ALT 19 6 - 29 U/L [facility] [place] Specimen Blood Narrative Performed At FASTING:NO [facility] FASTING: NO Resulting Agency Comment Performing Organization Information: Site ID: [id number] Name: [facility] Address: [address] [place] [phone] Director: Carol Russell Performing Organization Address City/State/Zipcode Phone Number [facility] [address] [address] after 2018 Insurance Payer Benefit Plan / Subscriber ID Effective Dates Phone Addre ss Type Group HUMANA MEDICARE HUMANA MEDICARE xxxxxxxxx 2018-Present PPO PPO/PFFS/ERS MCR Advance Directives For more information, please contact: [phone] Type Date Recorded 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
--- OUTSIDE RECORDS SUMMARY | 2019-12-13 12:55 | XMS REPORT | Continuity of Care Document ---
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 CERVICAL Active [facility] RADICULITIS, 013 Medical CERVICAL DISC DISP C enter Diabetes mellitus Resolved Problem 03/21/2013 [facility] PHYLLIS Butler GERD - Resolved Problem 03/21/2013 [facility] Gastro-esophageal Ar dical reflux disease Cente r, OPINick Butler HLD - Hyperlipidemia Resolved Problem 03/21/2013 [facility] PHYLLIS Butler HTN - Hypertension Resolved Problem 03/21/2013 [facility] PHYLLIS Butler Neuropathy Resolved Problem 03/21/2013 [facility] PHYLLIS Butler Diabetes mellitus Active Problem 02/17/2016 [facility] OPID (disorder) LukeM [facility] 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 (disorder) Gastroesophageal Active Problem 02/17/2016 OPID reflux disease Anitra nn, (disorder) [facility] Hyperlipidemia Active Problem 02/17/2016 O PID (disorder) LukeM [facility] Hypertensive Active Problem 02/17/2016 OPI D disorder, systemic H jennyfer arterial (disorder) [facility] Low back pain Active Problem 02/17/2016 (disorder) [facility] Lumbar radiculopathy Active Problem 02/17/2016 MH (disorder) [facility] Lumbar spondylosis Active Problem 02/17/2016 MH (disorder) [facility] Neuropathy Active Problem 02/17/2016 OPID (disorder) Brian Butler H [facility] Obesity (disorder) Active Problem 02/17/2016 [facility] Spinal stenosis of Active Problem 02/17/2016 lumbar region Memori al (disorder) [facility] Spondylolisthesis Active Problem 02/17/2016 M H (disorder) [facility] 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/17/2016 disorder (disorder) [facility] 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 [facility] canal (disorder) Cit y BRACHIAL NEURITIS Active [facility] CERV DISC DIS W Active [facility] ILLNESS, UNSPECIFIED Active [facility] Medications Medication Details Route Status Patient Ordering Order Source Instructions Provider Date Lipitor Notes: (Same No Longer As: Lipitor) Active 2015 [facility] Acetaminophen 325 1 tab, PO, Q6H, Active MG / Hydrocodone PRN pain, # 90 2015 [facility] Bitartrate 10 MG tab, 0 [facility] Oral Tablet [Paw[place] Refill(s), ] given to patient morphine 15 mg 15 mg = 1 tab, Active oral tablet, PO, Q12H, # 60 2015 Boy rial extended release tab, 0 City Refill(s), given to patient bisacodyl 5 mg 5 mg = 1 tab, Active oral enteric PO, TID, PRN 2015 Memori al coated tablet Constipation, 0 Ci ty Refill(s) baclofen 10 mg 5 mg = 0.5 tab, Active H oral tablet PO, TID, PRN as 2016 Boy rial needed for [facility] muscle spasm, # 45 tab, 0 Refill(s) MS Contin Notes: Do not No Longer crush (Same Active 2015 [facility] as:Oramorph SR, [facility] MS Contin) Lipitor Notes: (Same No Longer As: Lipitor) Active 2015 [facility] Tylenol Notes: Do not No Longer exceed [address] [place] [id number] gm/day. (Same [facility] as: Tylenol) Bisacodyl Notes: (Same No Longer As: Dulcolax, Active 2015 [facility] Correctol) (Do City Not Crush) "Do Not Crush" Docusate Notes: (Same No Longer as: Colace) (Do Active 2015 [facility] Not Crush) [facility] Simethicone Notes: (Same No Longer as: Mylicon) Active 2015 [facility] Bisacodyl Notes: (Same No Longer As: Dulcolax, Active 2015 [facility] Bisco-Lax) [facility] Baclofen Notes: (Same No Longer As: Lioresal) Active 2015 [facility] Dilaudid Notes: (Same No Longer as: Dilaudid) Active 2015 [facility] Acetaminophen 325 Notes: (Same No Longer MG / Hydrocodone as: Pawlet Active 2015 Memor ial Bitartrate 5 MG 325/5) Do not C ity Oral Tablet [Pawlet exceed 4gm/day 5/325] of acetaminophen. tradjenta tradjenta, 5 No Longer mg, 1 tab, Drug Active 2015 [facility] form: [facility], [facility] Route: PO, Daily, 02/09/16 15:00:00 CDT, Duration: 30 day, Stop date: 03/10/16 9:00:00 CDT Rosuvastatin 2.5 mg, PO, Active calcium 5 MG Oral Bedtime, # 30 2015 [facility] Tablet [Crestor] tab, 0 [facility] Refill(s) Sodium Chloride 25 mL, Route: No Longer 0.9% IV IV, Start date: Active 2015 [facility] 02/09/16 [facility] 10:15:00 CDT, Duration: 30 day, Stop date: 03/10/16 10:14:00 CDT, PRN Line Flush BD Normal Saline Notes: (Same No Longer Flush as: BD Active 2015 [facility] Posiflush) [facility] Spironolactone Notes: (Same No Longer As: Aldactone) Active 2015 [facility] irbesartan Notes: (Same No Longer as:Avapro) Active 2015 [facility] Tradjenta 5 mg, Route: Inactive PO, Drug form: 2015 [facility] TAB, Daily, City Dosing Weight 89.545, kg, Start date: 02/09/16 9:00:00 CDT Furosemide 20 MG Notes: (Same No Longer Oral Tablet as: Lasix) October Active 2015 Boy rial cause GI upset. [facility] Give with food or milk. Vitamin D3 Notes: Same as No Longer : Vitamin D3 Active 2015 [facility] Amlodipine Notes: (Same No Longer as: Norvasc) Active 2015 [facility] Miralax Notes: Dissolve No Longer in 8 oz of [facility] 2015 [facility] water or juice. [facility] (Same as: Miralax) Insulin, Aspart, Notes: Roll in No Longer Human palms of hands [facility] 2015 [facility] gently; Do not City shake vigorously. (Same as: NovoLOG) "single patient use only" WASTE: F/P - Black; E - Municipal Trash Bin Stable for 28 days at room temperature. Expires in days from D ate Glucagon 1 mg, Route: No Longer IM, Drug form: [address] PDR/INJ, PRN, [facility] Dosing Weight 89.545, kg, PRN Blood Glucose Results, Start date: 02/09/16 1:52:00 CDT, Duration: 30 day, Stop date: 03/10/16 1:51:00 CDT Dextrose 50% 25 gm, 50 mL, No Longer Syringe Route: IVP, [facility] 2015 [facility] Drug Form: INJ, [facility] Dosing Weight 89.545, kg, PRN, PRN Blood Glucose Results, Start date: 02/09/16 1:52:00 CDT, Duration: 30 day, Stop date: 03/10/16 1:51:00 CDT Crestor Route: PO, Drug No Longer form: TAB, [facility] 2015 [facility] Bedtime, Dosing [facility] Weight 89.545, kg, Start date: 02/08/16 21:00:00 CDT, Duration: 30 day, Stop date: 03/08/16 21:00:00 CDT Insulin Glargine Notes: Same as No Longer 100 UNT/ML Lantus Solostar Active 2015 Memor ial Injectable PEN Do not [facility] Solution [Lantus] hold insulin without contacting prescriber "single patient use only" WASTE: F/P - Black; E - Municipal Trash Bin Stable for 28 days at room temperature. Expires in days from D ate carvedilol Notes: Give No Longer with food. Active 2015 [facility] (Same As: [facility] Coreg) Docusate Sodium 100 mg = 1 cap, Active 100 MG Oral PO, BID, 0 2015 [facility] Capsule [Colace] Refill(s) [facility] Linagliptin 5 MG 5 mg = 1 tab, No Longer Oral Tablet PO, Daily, 0 [facility] [Tradjenta] Refill(s) [facility] 3 ML Insulin 50 units, Active Glargine 100 SUB-Q, Bedtime, 2015 [facility] orial UNT/ML Prefilled 0 Refill(s) Cit y Syringe [Lantus] glimepiride 4 mg, PO, Active Daily, 0 2015 [facility] Refill(s) [facility] Clonidine 0.1 mg = 1 tab, No Longer Hydrochloride 0.1 PO, PRN Active 2015 Memori al MG Oral Tablet Hypertension, 0 C ity Refill(s) Ancef + sodium Notes: (Same No Longer chloride 0.9% INJ As: Ancef, Active 2015 [facility] orial 100 mL Kefzol) [facility] MEDICATION WASTE Product Size: 1000 mg Product Wasted: ___ mg Docusate Sodium Notes: (Same No Longer H 100 MG Oral as: Colace) (Do Active 2015 Boy rial Capsule [Colace] Not Crush) [facility] Ofirmev 1,000 mg, Inactive Route: IV, 2015 [facility] ONCE, Dosing [facility] Weight 89, kg, Start date: 02/08/16 14:25:00 CDT, Stop date: 02/08/16 14:25:00 CDT Ondansetron Notes: (Same Inactive as: Zofran) 2015 [facility] MEDICATION City WASTE Product Size: 4 mg Product Wasted: ___ mg Flumazenil Notes: (Same Inactive as: Romazicon) 2015 [facility] Naloxone Notes: Same as Inactive Narcan 2015 [facility] Morphine Notes: (Same Inactive as:MORPhine 2015 [facility] Sulfate) [facility] Sodium Chloride 1,000 mL, Rate: Inactive 0.154 MEQ/ML 125 ml/hr, 2015 [facility] Injectable Infuse over: 8 City Solution hr, Route: IV, Dosing Weight 89.545 kg, Total Volume: 1,000, Start date: 02/08/16 13:22:00 CDT, Duration: 30 day, Stop date: 03/09/16 13:21:00 CDT Morphine Notes: Dose: No Longer Delay: Active 2015 [facility] rate: 4hr limit: (Same as:Abby) Naloxone Notes: Same as No Longer Narcan Active 2015 [facility] Acetaminophen 325 Notes: Do not No Longer MG / Hydrocodone exceed 4gm/day Active 2015 [facility] Bitartrate 10 MG of [facility] Oral Tablet [P[place] acetaminophen. 10/325] (Same as: [place] 325/10) Zofran Notes: (Same No Longer as: Zofran) Active 2015 [facility] MEDICATION [facility] WASTE Product Size: 4 mg Product Wasted: ___ mg Robaxin Notes: (Same No Longer as:Robaxin) Active 2015 [facility] Lactated Ringers 1,000 mL, Rate: No Longer 02/07 1,000 mL 75 ml/hr, Active 2015 [facility] Infuse over: [facility] 13.3 hr, Route: IV, Dosing Weight 89.545 kg, Total Volume: 1,000, Start date: 02/08/16 12:52:00 CDT, Duration: 30 day, Stop date: 03/09/16 12:51:00 CDT Flexeril Notes: (Same No Longer As: Flexeril) Active 2015 [facility] Diphenhydramine Notes: (Same No Longer H as: Benadryl) Active 2015 [facility] phenol Notes: No Longer Chloraseptic Active 2015 [facility] [place] (Same as: [facility] Chloraseptic, Sore Throat [place]) WASTE: F/P - Black; E - Municipal Trash Bin ceFAZolin Notes: Same as: No Longer Ancef Active 2015 [facility] carvedilol 12.5 mg 12.5 mg = 1 Active H oral tablet tab, PO, Q12H, [facility] Acetaminophen 325 Notes: Same as No Longer 01/17 MG / Hydrocodone [place] 325-7.5mg Active 2015 [facility] Bitartrate 7.5 MG Do not exceed [facility] Oral Tablet [[place] 4gm/day of 7.5/325] acetaminophen. sodium phosphate + 15 mmol, 5 mL, No Longer sodium chloride Route: IVPB, Active 2015 [facility] orial 0.9% INJ 250 mL PRN, Dosing City Weight 97.983, kg, PRN Abnormal Lab Result, Start date: 01/17/16 16:42:00 CDT, Stop date: 02/16/16 16:41:00 CDT heparin sodium, Notes: porcine No Longer porcine 2500 heparin Active 2015 [facility] UNT/ML Injectable [facility] Solution gabapentin 300 MG Notes: (Same No Longer Oral Capsule as: Neurontin) Active 2015 Boy rial [facility] Insulin, Aspart, Notes: Roll in No Longer Human palms of hands Active 2015 [facility] gently; Do not [facility] shake vigorously. (Same as: NovoLOG) "single patient use only" WASTE: F/P - Black; E - Municipal Trash Bin Stable for 28 days at room temperature. Expires in days from D ate Hydralazine Notes: (Same No Longer as: Apresoline) Active 2015 [facility] Push over 5 [facility] minutes Ativan Notes: (Same Inactive as: Ativan) 2015 [facility] Acetaminophen 325 1 tab, Route: No Longer MG / Hydrocodone PO, Drug Form: Active 2015 [facility] Bitartrate 10 MG TAB, Dosing Cit y Oral Tablet [[place] Weight 97.983, 10/325] kg, Q4H, Start date: 01/13/16 15:05:00 CDT, Stop date: 02/12/16 16:00:00 CDT Miralax Notes: Dissolve No Longer in 8 oz of Active 2015 [facility] water or juice. [facility] (Same as: Miralax) Lorazepam 0.5 mg, Route: Inactive IVP, Drug form: 2015 [facility] INJ, ONCE, [facility] Dosing Weight 97.983, kg, PRN Anxiety, Priority: NOW, Start date: 01/12/16 10:44:00 CDT Tradjenta 5 mg, Route: Inactive PO, Drug form: 2015 [facility] TAB, Daily, [facility] Dosing Weight 97.983, kg, Start date: 01/12/16 9:00:00 CDT irbesartan Notes: (Same No Longer as:Avapro) Active 2015 [facility] Furosemide 20 MG Notes: (Same No Longer Oral Tablet as: Lasix) October Active 2015 Boy rial cause GI upset. [facility] Give with food or milk. glimepiride Notes: (Same No Longer as: Amaryl) Active 2015 [facility] Tradjenta 5 mg Tradjenta 5 mg No Longer (Patient's own (Patient's own Active 2015 Ar morial medicine) medicine), 1 [facility] tab, Drug form: MISC, Route: PO, Daily, 01/12/16 9:00:00 CDT, Duration: 30 day, Stop date: 02/10/16 9:00:00 CDT Aspirin 81 MG Notes: Do not No Longer Enteric Coated crush or chew. Active 2015 Ar morial Tablet (Same As: [facility] Ecotrin) Amlodipine Notes: (Same No Longer as: Norvasc) Active 2015 [facility] Docusate Notes: (Same No Longer as: Colace) (Do Active 2015 [facility] Not Crush) [facility] Spironolactone Notes: (Same No Longer As: Aldactone) Active 2015 [facility] Ativan Notes: (Same Inactive as: Ativan) 2015 [facility] Sodium Chloride 25 mL, Route: No Longer 0.9% IV IV, Start date: Active 2015 [facility] 01/12/16 [facility] 8:19:00 CDT, Duration: 30 day, Stop date: 02/11/16 8:18:00 CDT, PRN Line Flush BD Normal Saline Notes: (Same No Longer Flush as: BD Active 2015 [facility] Posiflush) [facility] Insulin, Aspart, Notes: Roll in No Longer Human palms of hands Active 2015 [facility] gently; Do not [facility] shake vigorously. (Same as: NovoLOG) "single patient use only" WASTE: F/P - Black; E - Municipal Trash Bin Stable for 28 days at room temperature. Expires in days from D ate Dextrose 50% 12.5 gm, 25 mL, No Longer H Syringe Route: IVP, [facility] 2015 [facility] Drug Form: INJ, [facility] Dosing Weight 97.983, kg, PRN, PRN Blood Glucose Results, Start date: 01/11/16 22:38:00 CDT, Duration: 30 day, Stop date: 02/10/16 22:37:00 CDT Glucagon 1 mg, Route: No Longer IM, Drug form: [facility] 2015 [facility] PDR/INJ, PRN, [facility] Dosing Weight 97.983, kg, PRN Blood Glucose Results, Start date: 01/11/16 22:38:00 CDT, Duration: 30 day, Stop date: 02/10/16 22:37:00 CDT Lipitor Notes: (Same No Longer As: Lipitor) Active 2015 [facility] Lantus Notes: Same as No Longer Lantus Solostar Active 2015 [facility] PEN Do not City hold insulin without contacting prescriber "single patient use only" WASTE: F/P - Black; E - Municipal Trash Bin Stable for 28 days at room temperature. Expires in days from D ate carvedilol Notes: Give No Longer with food. Active 2015 [facility] (Same As: [facility] Coreg) Crestor Route: PO, Drug Inactive form: TAB, 2015 [facility] Bedtime, Dosing [facility] Weight 97.983, kg, Start date: 01/11/16 21:00:00 CDT, Duration: 30 day, Stop date: 02/09/16 21:00:00 CDT Acetaminophen 325 Notes: Do not No Longer MG / Hydrocodone exceed 4gm/day Active 2015 [facility] Bitartrate 10 MG of [facility] Oral Tablet [[place] acetaminophen. 10/325] (Same as: [place] 325/10) Enoxaparin Notes: (Same No Longer as: Lovenox) Active 2015 [facility] Clonidine Notes: (Same No Longer Hydrochloride 0.1 As: Catapres) Active 2015 [facility] MG Oral Tablet [facility] Sodium Chloride 1,000 mL, Rate: No Longer 0.154 MEQ/ML 45 ml/hr, Active 2015 [facility] Injectable Infuse over: [facility] Solution 22.2 hr, Route: IV, Dosing Weight 97.983 kg, Total Volume: 1,000, Start date: 01/11/16 17:53:00 CDT, Duration: 30 day, Stop date: 02/10/16 17:52:00 CDT Saline Flush 0.9% Notes: (Same No Longer as: BD Active 2015 [facility] Posiflush) [facility] Morphine Notes: (Same No Longer as:MORPhine Active 2015 [facility] Sulfate) [facility] Ondansetron Notes: (Same No Longer as: Zofran) Active 2015 [facility] MEDICATION City WASTE Product Size: 4 mg Product Wasted: ___ mg Acetaminophen 100.4 F, Start Inactive H date: 01/11/162015 [facility] 17:53:00 CDT, City Duration: 30 day, Stop date: 02/10/16 17:52:00 CDT irbesartan 300 mg 300 mg = 1 tab, Active oral tablet PO, Daily, # 30 2015 Boy [facility] tab, 0 City Refill(s) Co Q-10 100 mg 200 mg = 2 cap, Active H oral capsule PO, Daily, 0 2015 Memori al Refill(s) [facility] Aspirin 81 MG 81 mg = 1 tab, Active Enteric Coated PO, Daily, # 90 2015 [facility] Tablet tab, 3 City Refill(s) Vitamin D3 2,000 IntlUnit, Active PO, Daily, 0 2015 [facility] Refill(s) [facility] Rosuvastatin See Active calcium 5 MG Oral Instructions, 1 2015 [facility] Tablet [Crestor] tab PO Bedtime [facility] tuesdays and fridays, 0 Refill(s) spironolactone 25 25 mg = 1 tab, Active mg oral tablet PO, Daily, # 30 2015 emorial tab, 3 [facility] Refill(s) Docusate Sodium 300 mg = 3 cap, Active 100 MG Oral PO, Daily, 0 2015 [facility] Capsule [Colace] Refill(s) [facility] Furosemide 20 MG 20 mg = 1 tab, Active Oral Tablet PO, Daily, # 30 2015 Boy rial tab, 0 [facility] Refill(s) Linagliptin 5 MG 5 mg = 1 tab, Active H Oral Tablet PO, Daily, # 30 2015 Boy rial [Tradjenta] tab, 3 [facility] Refill(s) Acetaminophen 325 2 tabs, PO, Active MG / Hydrocodone Q6H, 0 2015 [facility] Bitartrate 10 MG Refill(s) [facility] Oral Tablet [Pawlet 10/325] Amlodipine 10 mg, PO, Active Daily, 0 2015 [facility] Refill(s) [facility] Pepcid 20 mg oral 20 mg, 1 tab, PO Active [facility] [place] tablet PO, BID, 60 2012 Medical tab, Center Substitution Allowed [place] 10/325 oral 1-2 tab, PO, PO Active [facility] [place] tablet Q4-6H, PRN, 90 2012 Medical tab, Pain, Center Substitution Allowed, Maintenance Flexeril 10 mg 10 mg, 1 tab, PO Active [facility] [place] oral tablet PO, TID, PRN, 2012 Medica l 30 tab, for Center spasm, Substitution Allowed, TAB Medrol Dosepak 4 As directed on PO Active [facility] [place] mg Tablet package 2012 Medical instructions, Center PO, Daily, Take with or without food, 1 Pack, Substitution AllowedTake with or without food Colace 100 mg oral 100 mg, 1 cap, PO Active [facility] [place] capsule PO, BID, PRN, 2013 Medical 20 cap, Center Constipation, Substitution Allowed, CAP diphenhydrAMINE 25 25 mg, 1 cap, PO No Longer [place] 10/06 [place] mg oral tablet, Route: PO, Drug Active 2012 Medical disintegrating form: CAP, Q8H, C enter Dosing Weight 91.818, kg, PRN Anxiety, Start date: 10/05/12 20:00:00, Duration: 30 day, Stop date: 11/04/12 19:59:00 Lantus 10 unit, 0.1 SUB-Q No Longer [facility] mL, Route: Active 2012 Medical SUB-Q, Drug Center form: INJ, ONCE, Dosing Weight 91.818, kg, Start date: 10/05/12 18:46:00, Stop date: 10/05/12 18:46:00 insulin aspart 3 unit, 0.03 SUB-Q No Longer [facility] mL, Route: Active 2012 Medical SUB-Q, Drug Center form: SOLN, TID-Before Meals, Dosing Weight 91.818, kg, PRN Blood Glucose Results, Start date: 10/05/12 17:13:00, Duration: 30 day, Stop date: 11/04/12 17:12:00 glucagon 1 mg, Route: IM No Longer [place] IM, Drug form: Active 2012 Medical PDR/INJ, PRN, Center Dosing Weight 91.818, kg, PRN Blood Glucose Results, Start date: 10/05/12 17:13:00, Duration: 30 day, Stop date: 11/04/12 17:12:00 Dextrose 50% 12.5 gm, 25 mL, IVP No Longer [place] Syringe Route: IVP, Active 2012 Medical Drug Form: INJ, Center Dosing Weight 91.818, kg, PRN, PRN Blood Glucose Results, Start date: 10/05/12 17:13:00, Duration: 30 day, Stop date: 11/04/12 17:12:00 insulin aspart 5 unit, 0.05 SUB-Q No Longer [facility] 10/05/ [facility] mL, Route: Active 2012 Medical SUB-Q, Drug Center form: SOLN, TID-Before Meals, Dosing Weight 91.818, kg, Start date: 10/05/12 11:30:00, Duration: 30 day, Stop date: 11/04/12 7:30:00 Ativan 1 mg, 1 tab, PO No Longer [facility] Route: PO, Drug Active 2012 Medical form: TAB, Center Bedtime, Dosing Weight 91.818, kg, PRN Insomnia, Start date: 10/05/12 10:38:00, Duration: 30 day, Stop date: 11/04/12 10:37:00 Valium 5 mg, 1 tab, PO No Longer Dionisio [facility] Route: PO, Drug Active 2012 Medical form: TAB, Center ONCE, Dosing Weight 91.818, kg, PRN Anxiety, Start date: 10/05/12 4:41:00, Stop date: 11/04/12 4:40:00 dexamethasone 4 mg, 1 mL, IVP No Longer Dionisio [facility] Route: IVP, Active 2012 Medical Drug form: INJ, Center Q6H, Dosing Weight 91.818, kg, Start date: 10/05/12 0:00:00, Duration: 30 day, Stop date: 11/03/12 18:00:00 heparin 5,000 unit, 1 SUB-Q No Longer Deniz [facility] mL, Route: Active 2012 Medical SUB-Q, Drug Center form: INJ, Q8H, Dosing Weight 91.818, kg, Start date: 10/05/12 0:00:00, Duration: 30 day, Stop date: 11/03/12 16:00:00 famotidine 20 mg, 1 tab, PO No Longer [place] Route: PO, Drug Active 2012 Medical form: TAB, BID, Center Dosing Weight 91.818, kg, Start date: 10/04/12 21:00:00, Duration: 30 day, Stop date: 11/03/12 9:00:00 Insulin regular 12 unit, 0.12 SUB-Q No Longer [facility] mL, Route: Active 2012 Medical SUB-Q, Drug Center form: SOLN, TID-Before Meals, Dosing Weight 91.818, kg, PRN Blood Glucose Results, Start date: 10/04/12 19:54:00, Duration: 30 day, Stop date: 11/03/12 19:53:00 glucagon 1 mg, Route: IM No Longer [place] IM, Drug form: Active 2012 Medical PDR/INJ, PRN, Center Dosing Weight 91.818, kg, PRN Blood Glucose Results, Start date: 10/04/12 19:54:00, Duration: 30 day, Stop date: 11/03/12 19:53:00 Dextrose 50% 25 gm, 50 mL, IVP No Longer Law [facility] Syringe Route: IVP, Active 2012 Medical Drug Form: INJ, Center Dosing Weight 91.818, kg, PRN, PRN Blood Glucose Results, Start date: 10/04/12 19:54:00, Duration: 30 day, Stop date: 11/03/12 19:53:00 dexamethasone + 10 mg, 1 mL, IVP No Longer Dionisio [facility] Sodium Chloride Route: IVP, Active 2012 Medi montse 0.9% IV 50 mL Drug form: INJ, Ce nter ONCE, Dosing Weight 91.818, kg, Start date: 10/04/12 19:14:00, Stop date: 10/04/12 19:14:00 magnesium sulfate 2 gm, 50 mL, IVPB No Longer Young [facility] Route: IVPB, Active 2012 Medical Drug form: INJ, Center Q2H, Dosing Weight 91.818, kg, Total dose = 4 gm, Start date: 10/04/12 16:00:00, Duration: 2 doses or times, Stop date: 10/04/12 18:00:00 Ativan 1 mg, 0.5 mL, IVP No Longer Michael [facility] Route: IVP, Active 2012 Medical Drug form: INJ, Center ONCE, Dosing Weight 91.818, kg, PRN Anxiety, Start date: 10/04/12 11:52:00 acetaminophen-hydr 1 tab, Route: PO No Longer Michael 10/04 [facility] ocodone 325 mg-10 PO, Drug Form: Active 2012 Medical mg oral tablet TAB, Dosing Cente r Weight 91.818, kg, Q4H, PRN Pain Score 4-6, Start date: 10/04/12 11:52:00, Duration: 30 day, Stop date: 11/03/12 11:51:00 hydrochlorothiazid 25 mg, Route: PO No Longer [place] 10/04 [place] PO, Drug form: Active 2012 Medical TAB, Daily, Center Dosing Weight 91.818, kg, Start date: 10/04/12 9:00:00, Duration: 30 day, Stop date: 11/02/12 9:00:00 Januvia 100 mg, 1 tab, PO No Longer [place] Route: PO, Drug Active 2012 Medical form: TAB, Center Daily, Dosing Weight 91.818, kg, Start date: 10/04/12 9:00:00, Duration: 30 day, Stop date: 11/02/12 9:00:00 amLODipine 10 mg, 1 tab, PO No Longer [place] Route: PO, Drug Active 2012 Medical form: TAB, Center Daily, Dosing Weight 91.818, kg, Start date: 10/04/12 9:00:00, Duration: 30 day, Stop date: 11/02/12 9:00:00 Lantus 30 unit, 0.3 SUB-Q No Longer [place] mL, Route: Active 2012 Medical SUB-Q, Drug Center form: INJ, Daily, Dosing Weight 91.818, kg, Start date: 10/04/12 9:00:00, Stop date: 11/02/12 9:00:00 polyethylene 17 gm, 1 pkt, PO No Longer [place] 10/04[facility] glycol 3350 Route: PO, Drug Active 2012 Medi montse form: PWDR, Center Daily, Dosing Weight 91.818, kg, Start date: 10/04/12 9:00:00, Duration: 30 day, Stop date: 11/02/12 9:00:00 Zofran 4 mg oral 4 mg, 1 tab, PO Active [place] 10/04[facility] [place] tablet PO, Q8H, 30 2012 Medical tab, Center Substitution Allowed docusate sodium 100 mg, 1 cap, PO Active [place] 10/04[facility] [place] 100 mg oral PO, Q12H, PRN, 2012 Medic al capsule 20 cap, as Center needed for constipation, Substitution Allowed, CAP tramadol 50 mg 1 - 2 tab, PO, PO Active [place] 10/04[facility] [place] oral tablet Q6H, PRN, 112 2012 Medica l tab, Pain, Center Substitution Allowed, TAB cyclobenzaprine 10 10 mg, 1 tab, PO Active [place] mg oral tablet PO, TID, PRN, 2012 Med ical 42 tab, Spasm, Center Substitution Allowed, TAB olmesartan 40 mg 40 mg, 1 tab, PO Active [place] oral tablet PO, Daily, 2012 Medica l tab, Center Substitution Allowed, TAB Dilaudid 0.3 mg, 0.15 IV No Longer [place] mL, Route: IV, Active 2012 Medical Drug form: INJ, Center Q3H, Dosing Weight 91.818, kg, PRN Pain Score 7-10, Start date: 10/04/12 7:57:00, Duration: 30 day, Stop date: 11/03/12 7:56:00 Benadryl 25 mg, 0.5 mL, IVP No Longer [facility] Kw[place] as Route: IVP, Active 2012 Medical Drug form: INJ, Center ONCE, Dosing Weight 91.818, kg, PRN Insomnia, Start date: 10/04/12 3:22:00 labetalol 10 mg, 2 mL, IVP No Longer [place] Kwame as Route: IVP, Active 2012 Medical Drug form: INJ, Center Q15Min, Dosing Weight 91.818, kg, PRN Hypertension, Start date: 10/04/12 3:05:00, Duration: 30 day, Stop date: 11/03/12 3:04:00 hydrALAZINE 10 mg, 0.5 mL, IV No Longer [place] [facility] Route: IV, Drug Active 2012 Medical form: INJ, Q6H, Center Dosing Weight 91.818, kg, PRN Elevated BP, Start date: 10/04/12 0:16:00, Duration: 30 day, Stop date: 11/03/12 0:15:00 clonidine 0.1 mg 0.1 mg, 1 tab, PO No Longer [place] 10/04 [place] oral tablet Route: PO, Drug Active 2012 Medi montse form: TAB, QID, Center Dosing Weight 91.818, kg, Start date: 10/04/12 0:00:00, Duration: 30 day, Stop date: 11/02/12 18:00:00 carvedilol 12.5 mg, 1 tab, PO No Longer [place] Route: PO, Drug Active 2012 Medical form: TAB, Center Q12H, Dosing Weight 91.818, kg, Start date: 10/03/12 21:00:00, Stop date: 11/02/12 9:00:00 Saline Flush 0.9% 5 ml, Route: IVP No Longer Deniz [place] IVP, Drug Form: Active 2012 Medical INJ, Dosing Center Weight 91.818, kg, Q12H, Start date: 10/03/12 21:00:00, Duration: 30 day, Stop date: 11/02/12 9:00:00 docusate 100 mg, 1 cap, PO No Longer Deniz Kwame [place] Route: PO, Drug Active 2012 Medical form: CAP, Center Q12H, Dosing Weight 91.818, kg, Start date: 10/03/12 21:00:00, Duration: 30 day, Stop date: 11/02/12 9:00:00 senna 8.6 mg, 1 tab, PO No Longer Deniz Janie martinez Route: PO, Drug Active 2012 Medical Form: TAB, Center Dosing Weight 91.818, kg, Q12H, Start date: 10/03/12 21:00:00, Duration: 30 day, Stop date: 11/02/12 9:00:00 Ancef + Sodium 2 gm, Route: IVPB No Longer [place] Chloride 0.9% IV IVPB, Drug Active 2012 Medi montse 100 mL form: PDR/INJ, Center ABXQ8H, Dosing Weight 91.818, kg, Start date: 10/03/12 20:00:00, Duration: 1 day, Stop date: 10/04/12 12:00:00 tramadol 50 mg, 1 tab, PO No Longer Michael Janie s Route: PO, Drug Active 2012 Medical form: TAB, Q4H, Center Dosing Weight 91.818, kg, PRN Pain Score 4-6, Start date: 10/03/12 18:56:00, Stop date: 11/02/12 18:55:00 Flexeril 10 mg, 1 tab, PO No Longer [place] Route: PO, Drug Active 2012 Medical form: TAB, TID, Center Dosing Weight 91.818, kg, PRN Spasm, Start date: 10/03/12 18:54:00, Duration: 30 day, Stop date: 11/02/12 18:53:00 Dextrose 50% 12.5 gm, 25 mL, IVP No Longer [facility] [place] Syringe Route: IVP, Active 2012 Medical Drug Form: INJ, Center Dosing Weight 91.818, kg, PRN, PRN Abnormal Lab Result, Start date: 10/03/12 18:18:00, Duration: 30 day, Stop date: 11/02/12 18:17:00 insulin regular 5 unit, 0.05 SUB-Q No Longer [place] [facility] [place] 100 units/mL human mL, Route: Active 2012 Me dical recombinant SUB-Q, Drug Center form: SOLN, PRN, Dosing Weight 91.818, kg, PRN Abnormal Lab Result, Start date: 10/03/12 18:18:00, Duration: 30 day, Stop date: 11/02/12 18:17:00 hydrALAZINE 20 mg, 1 mL, IVP No Longer [place] [place] Route: IVP, Active 2012 Medical Drug form: INJ, Center Q4H, Dosing Weight 91.818, kg, PRN Other -See Comment, Start date: 10/03/12 18:14:00, Duration: 30 day, Stop date: 11/02/12 18:13:00, SBP > 150 mmHg labetalol 20 mg, 4 mL, IVP No Longer [place] Route: IVP, Active 2012 Medical Drug form: INJ, Center Q15Min, Dosing Weight 91.818, kg, PRN Elevated BP, Start date: 10/03/12 18:14:00, Duration: 3 doses or times, Stop date: 10/04/12 0:00:00, SBP > 150 mmHg naloxone 0.2 mg, 0.5 mL, IVP No Longer [place] [address] [place] Route: IVP, Active 2012 Medical Drug form: INJ, Center Q5Min, PRN Narcotic Reversal, Start date: 10/03/12 18:04:00, Duration: 30 day, Stop date: 11/02/12 18:03:00 hydrALAZINE 20 mg, Route: IVP No Longer [place] IVP, ONCE, Active 2012 Medical Dosing Weight Center 91.818, kg, Start date: 10/03/12 17:15:00, Stop date: 10/03/12 17:15:00 diazepam 5 mg, 1 tab, PO No Longer Deniz [place] Route: PO, Drug Active 2012 Medical form: TAB, Q8H, Center Dosing Weight 91.818, kg, Start date: 10/03/12 16:00:00, Duration: 30 day, Stop date: 11/02/12 8:00:00 ondansetron 4 mg, 2 mL, IVP No Longer [place] Route: IVP, Active 2012 Medical Drug form: INJ, Center ONCE, Dosing Weight 91.818, kg, PRN Nausea & Vomiting, Start date: 10/03/12 15:54:00 promethazine 6.25 mg, 0.25 IVPB No Longer [place] mL, Route: Active 2012 Medical IVPB, Drug Center form: INJ, ONCE, Dosing Weight 91.818, kg, PRN Nausea & Vomiting, Start date: 10/03/12 15:54:00 flumazenil 0.2 mg, 2 mL, [place]P [place] Route: IVP, Active 2012 Medical Drug form: [...] fentanyl 25 microgram, IVP No Longer [place] 0.5 mL, Route: Active 2012 Medical IVP, Drug form: Center INJ, Q5Min, Dosing Weight 91.818, kg, PRN Pain Score 4-6, Start date: 10/03/12 15:54:00, Duration: 4 doses or times, Stop date: 10/04/12 0:00:00 labetalol 5 mg, 1 mL, IVP No Longer [facility] [place] Route: IVP, Active 2012 Medical Drug form: INJ, Center Q5Min, Dosing Weight 91.818, kg, PRN Elevated BP, Start date: 10/03/12 15:54:00, Duration: 5 doses or times, Stop date: 10/04/12 0:00:00 HYDROmorphone 15 mg, 30 mL, IV No Longer Deniz [place] 0.5mg/mL [employer] Route: IV, [employer] Active 2012 Medi montse (15mg/30 mL) 15 mg Dose: 0.3 mg, Center [employer] Lockout: 15 minutes, 4 Hour Limit (In MG): 4.8, Drug Form: INJ, Continuous, Start date: 10/03/12 12:00:00, Stop date: 11/02/12 11:59:00 Saline Flush 0.9% 5 ml, Route: IVP No Longer Deniz 10/03[facility] [place] IVP, Drug Form: 2012 Medical INJ, Dosing Center Weight 91.818, kg, PRN, PRN Line Flush, Start date: 10/03/12 11:42:00, Duration: 30 day, Stop date: 11/02/12 11:41:00 ondansetron 4 mg, 2 mL, IVP No Longer [place] [address] [place] Route: IVP, Active 2012 Medical Drug form: INJ, Center Q8H, Dosing Weight 91.818, kg, PRN Nausea & Vomiting, Start date: 10/03/12 11:42:00, Duration: 30 day, Stop date: 11/02/12 11:41:00 acetaminophen 650 mg, 20.3 PO No Longer Deniz [place] mL, Route: PO, Active 2012 Medical Drug form: LIQ, Center Q4H, Dosing Weight 91.818, kg, PRN Pain 1-3/Temp > 99.5 F, Start date: 10/03/12 11:42:00, Duration: 30 day, Stop date: 11/02/12 11:41:00 acetaminophen-hydr 1 tab, Route: PO No Longer [place] 10/03 [facility] ocodone 325 mg-10 PO, Drug Form: Active 2012 Medical mg oral tablet TAB, Dosing Dona nur Weight 91.818, kg, Q4H, PRN Pain Score 4-6, Start date: 10/03/12 11:42:00, Duration: 30 day, Stop date: 11/02/12 11:41:00 amLODipine Substitution Active [facility] Allowed 2012 Medical Center NS + KCL 20mEq/L 1,000 mL, Rate: IV No Longer [place] 10/03 [place] 1000ml (Premix) 70 ml/hr, Active 2012 Medica l 1,000 mL Infuse over: Center 14.3 hr, Route: IV, kg, Total Volume: 1,000, Start date: 10/03/12 5:00:00, Duration: 1 day, Stop date: 10/04/12 4:59:00 cefazolin 2 gm, 100 mL, IVPB No Longer [place] Kwame as Route: IVPB, Active 2012 Medical Drug form: INJ, Center PRE OP, Start date: 10/03/12 5:00:00, Duration: 1 day, Stop date: 10/04/12 4:59:00 Vicodin HP 10 PO, PRN, PO Active [facility] mg-300 mg oral Substitution 2012 Medi montse tablet Allowed, Center Maintenance Dulcolax Laxative 1 supp, [place] Active [facility] Daily, PRN, 5 2012 Medical supp, Center constipation, Substitution Allowed, SUPP clonidine 0.1 mg PO, QID, prn PO Active [place] oral tablet bp>160, 2012 Medical Substitution Center [id number] Benicar HCT 12.5 1 tab, PO, PO Active [place] mg-40 mg oral Daily, 30 tab, 2012 Med ical tablet Substitution Center Allowed, Maintenance, TAB carvedilol 25 mg 25 mg, 1 tab, PO Active [place] oral tablet PO, Q12H, 60 2012 Medical tab, Center Substitution Allowed, TAB Januvia 100 mg 100 mg, 1 tab, PO Active Deniz [facility] oral tablet PO, Daily, 2012 Medica l tab, Center Substitution Allowed, TAB Lantus 22 unit, SUB-Q, SUB-Q Active [facility] Bedtime, 2012 Medical Substitution Center Allowed glimepiride 4 mg 8 mg, 2 tab, PO Active [facility] oral tablet PO, Daily, 2012 Medical Substitution Center Allowed Allergies, Adverse Reactions, Alerts Substance Category Reaction Severity Reaction Status Date Comments S ource type Reported NKFA Assertion Drug Active allergy [facility] Immunizations No Data Provided for This Section Results Order Name Results Value Reference Date Interpretation Comments Ella rce Range CHEM PANEL Magnesium 1.8 1.8 - 2.4 01/16 Lvl [facility] CHEM PANEL Phosphorus 2.4 2.5 - 4.5 01/16 [facility] CHEM PANEL CO2 30 24 - 32 01/16 [facility] CHEM PANEL Glucose Lvl 240 70 - 99 01/16 [facility] CHEM PANEL Creatinine 0.80 0.50 - 01/16 Lvl 1.40 [facility] CHEM PANEL BUN 20 7 - 22 01/16 [facility] CHEM PANEL eGFR 73 01/16 [facility] Comment: The [facility] eGFR is City calculated using the CKD-EPI formula. In most young, healthy individuals the eGFR will be >90 mL/min/1.73m2 . The eGFR declines with age. An eGFR of 60-89 may be normal in some populations, particularly the elderly, for whom the CKD-EPI formula has not been extensively validated. Use of the eGFR is not recommended in the following populations:< br/>
Bonnie viduals with unstable creatinine concentration s, including patients and those with serious co-morbid conditions.<b r/>
Patie nts with extremes in muscle mass or diet.

The data above are obtained from the National Kidney Disease Education Program (NKDEP) which additionally recommends that when the eGFR is used in patients with extremes of body mass index for purposes of drug dosing, the eGFR should be multiplied by the estimated BMI. CHEM PANEL Albumin Lvl 2.8 3.5 - 5.0 01/16 [facility] CHEM PANEL Calcium Lvl 10.5 8.5 - 10.5 08/ /2015 [facility] CHEM PANEL Potassium 4.3 3.5 - 5.1 08/ Lvl /2016 [facility] CHEM PANEL Chloride Lvl 107 95 - 109 08/ /2015 [facility] CHEM PANEL Sodium Lvl 143 135 - 145 08/ /2015 [facility] CHEM PANEL AGAP 10.3 10.0 - 08/ MH 20.0 /2015 [facility] HEMATOLOGY Lymphocytes 1.3 1.0 - 5.5 08/ MH # /2016 [facility] HEMATOLOGY Segs-Bands # 4.4 1.5 - 8.1 08/ MH /2015 [facility] HEMATOLOGY Eosinophils 0.3 0.0 - 0.5 08/ # /2015 [facility] HEMATOLOGY Monocytes # 0.6 0.0 - 0.8 08/ /2015 [facility] HEMATOLOGY Basophils 0.5 0.0 - 1.0 08/ /2015 [facility] HEMATOLOGY Eosinophils 4.9 0.0 - 4.0 08/ /2015 [facility] HEMATOLOGY Monocytes 9.1 2.0 - 12.0 08/ MH /2015 [facility] HEMATOLOGY Lymphocytes 18.9 20.0 - 08 MH 40.0 /2015 [facility] HEMATOLOGY Segs 66.6 45.0 - 08/ MH 75.0 /2015 [facility] HEMATOLOGY MPV 9.4 7.4 - 10.4 08/ /2015 [facility] HEMATOLOGY Platelet 168 133 - 450 08/ /2015 [facility] HEMATOLOGY RDW 13.4 11.5 - 08 MH 14.5 /2015 [facility] HEMATOLOGY MCHC 32.8 32.0 - 08 MH 36.0 /2015 [facility] HEMATOLOGY MCH 30.7 27.0 - 08 31.0 /2015 [facility] HEMATOLOGY MCV 93.6 80.0 - 08/ MH 98.0 /2015 [facility] HEMATOLOGY WBC 6.6 3.7 - 10.4 08/ /2015 [facility] HEMATOLOGY Hct 41.0 36.0 - 08 48.0 /2015 [facility] HEMATOLOGY Hgb 13.4 12.0 - 08 16.0 /2015 [facility] HEMATOLOGY RBC 4.38 4.20 - 08 MH 5.40 /2015 [facility] SPECIAL Hgb A1C 10.3 <=5.6 % 08/ CHEMISTRY /2015 [facility] CHEM PANEL eGFR 81 07/30 Result Comment: The [facility] eGFR is City calculated using the CKD-EPI formula. In most young, healthy individuals the eGFR will be >90 mL/min/1.73m2 . The eGFR declines with age. An eGFR of 60-89 may be normal in some populations, particularly the elderly, for whom the CKD-EPI formula has not been extensively validated. Use of the eGFR is not recommended in the following populations:< br/>
Bonnie viduals with unstable creatinine concentration s, including patients and those with serious co-morbid conditions.<b r/>
Patie nts with extremes in muscle mass or diet.

The data above are obtained from the National Kidney Disease Education Program (NKDEP) which additionally recommends that when the eGFR is used in patients with extremes of body mass index for purposes of drug dosing, the eGFR should be multiplied by the estimated BMI. CHEM PANEL Creatinine 0.73 0.50 - 07 MH Lvl 1.40 /2015 [facility] CHEM PANEL AST 7 0 - 37 01/14 [facility] CHEM PANEL Total 5.0 6.4 - 8.4 01/14 MH Protein [facility] CHEM PANEL Alk Phos 73 39 - 136 01/14 [facility] CHEM PANEL ALT 29 0 - 65 01/14 [facility] CHEM PANEL Bili Total 0.7 0.2 - 1.3 01/14 [facility] CHEM PANEL Albumin Lvl 2.7 3.5 - 5.0 01/14 [facility] CHEM PANEL AGAP 10.9 10.0 - 07 MH 20.0 /2015 [facility] CHEM PANEL Calcium Lvl 10.0 8.5 - 10.5 01/14 [facility] CHEM PANEL Glucose Lvl 208 70 - 99 01/14 [facility] CHEM PANEL Potassium 3.9 3.5 - 5.1 01/14 MH Lvl /2015 [facility] CHEM PANEL BUN 20 7 - 22 01/14 [facility] CHEM PANEL Sodium Lvl 145 135 - 145 01/14 [facility] CHEM PANEL Chloride Lvl 109 95 - 109 01/14 [facility] CHEM PANEL CO2 29 24 - 32 01/14 [facility] CHEM PANEL B/C Ratio 27 6 - 25 01/14 [facility] CHEM PANEL A/G Ratio 1.2 0.7 - 1.6 01/14 [facility] CHEM PANEL Globulin 2.3 2.0 - 4.0 01/14 [facility] HEMATOLOGY Monocytes 11.7 2.0 - 12.0 01/14 [facility] HEMATOLOGY Segs-Bands # 4.9 1.5 - 8.1 01/14 [facility] HEMATOLOGY Basophils 0.4 0.0 - 1.0 01/14 [facility] HEMATOLOGY Lymphocytes 1.3 1.0 - 5.5 01/14 MH # /2015 [facility] HEMATOLOGY Macrocyte 1+ None Seen 01/14 MH *ABN* /2015 [facility] (01/15/16 4:17 AM) [facility] HEMATOLOGY Segs 67.7 45.0 - 01/14 MH 75.0 [facility] HEMATOLOGY Lymphocytes 17.4 20.0 - 01/14 MH 40.0 [facility] HEMATOLOGY Eosinophils 2.8 0.0 - 4.0 01/14 [facility] HEMATOLOGY Basophils # 0.0 0.0 - 0.2 01/14 [facility] HEMATOLOGY Eosinophils 0.2 0.0 - 0.5 01/14 MH # /2015 [facility] HEMATOLOGY Monocytes # 0.9 0.0 - 0.8 01/14 [facility] HEMATOLOGY Platelet 149 133 - 450 01/14 [facility] HEMATOLOGY WBC 7.3 3.7 - 10.4 01/14 [facility] HEMATOLOGY Hct 39.8 36.0 - 01/14 MH 48.0 [facility] HEMATOLOGY Hgb 13.0 12.0 - 01/14 MH 16.0 [facility] HEMATOLOGY RBC 4.23 4.20 - 01/14 MH 5.40 /2015 [facility] HEMATOLOGY MCHC 32.8 32.0 - 01/14 MH 36.0 [facility] HEMATOLOGY MCV 94.0 80.0 - 01/14 MH 98.0 [facility] HEMATOLOGY MCH 30.8 27.0 - 01/14 MH 31.0 [facility] HEMATOLOGY RDW 13.5 11.5 - 01/14 MH 14.5 [facility] HEMATOLOGY MPV 9.6 7.4 - 10.4 01/14 [facility] CHEM PANEL Glucose Lvl 133 70 - 99 01/13 [facility] CHEM PANEL BUN 15 7 - 22 01/13 [facility] CHEM PANEL AGAP 11.7 10.0 - 01/13 MH 20.0 [facility] CHEM PANEL Calcium Lvl 10.1 8.5 - 10.5 01/13 [facility] CHEM PANEL Potassium 3.7 3.5 - 5.1 01/13 MH Lvl /2015 [facility] CHEM PANEL Sodium Lvl 145 135 - 145 01/13 [facility] CHEM PANEL CO2 28 24 - 32 01/13 [facility] CHEM PANEL Chloride Lvl 109 95 - 109 01/13 [facility] CHEM PANEL Creatinine 0.70 0.50 - 01/13 MH Lvl 1.40 [facility] CHEM PANEL eGFR 86 01/13 Result Comment: The [facility] eGFR is City calculated using the CKD-EPI formula. In most young, healthy individuals the eGFR will be >90 mL/min/1.73m2 . The eGFR declines with age. An eGFR of 60-89 may be normal in some populations, particularly the elderly, for whom the CKD-EPI formula has not been extensively validated. Use of the eGFR is not recommended in the following populations:< br/>
Bonnie viduals with unstable creatinine concentration s, including patients and those with serious co-morbid conditions.<b r/>
Patie nts with extremes in muscle mass or diet.

The data above are obtained from the National Kidney Disease Education Program (NKDEP) which additionally recommends that when the eGFR is used in patients with extremes of body mass index for purposes of drug dosing, the eGFR should be multiplied by the estimated BMI. CHEM PANEL Total 4.9 6.4 - 8.4 01/12 [facility] CHEM PANEL Alk Phos 60 39 - 136 01/12 [facility] CHEM PANEL Bili Total 0.4 0.2 - 1.3 01/12 [facility] CHEM PANEL ALT 22 0 - 65 01/12 [facility] CHEM PANEL AST 12 0 - 37 01/12 [facility] CHEM PANEL Albumin Lvl 2.7 3.5 - 5.0 01/12 [facility] CHEM PANEL Globulin 2.2 2.0 - 4.0 01/12 [facility] CHEM PANEL A/G Ratio 1.2 0.7 - 1.6 01/12 /2015 [facility] CHEM PANEL B/C Ratio 23 6 - 25 01/12 /2015 [facility] HEMATOLOGY RBC 4.18 4.20 - 01/12 MH 5.40 /2015 [facility] HEMATOLOGY WBC 6.7 3.7 - 10.4 01/12 [facility] HEMATOLOGY MPV 9.3 7.4 - 10.4 01/12 [facility] HEMATOLOGY Platelet 159 133 - 450 01/12 /2015 [facility] HEMATOLOGY RDW 12.8 11.5 - 01/12 MH 14.5 /2015 [facility] HEMATOLOGY MCH 30.7 27.0 - 01/12 MH 31.0 [facility] HEMATOLOGY MCV 93.8 80.0 - 01/12 MH 98.0 /2015 [facility] HEMATOLOGY Hct 39.2 36.0 - 01/12 MH 48.0 /2015 [facility] HEMATOLOGY Hgb 12.8 12.0 - 01/12 MH 16.0 [facility] HEMATOLOGY MCHC 32.8 32.0 - 01/12 MH 36.0 [facility] HEMATOLOGY Lymphocytes 21.4 20.0 - 01/12 MH 40.0 /2015 [facility] HEMATOLOGY Segs 64.1 45.0 - 01/12 MH 75.0 [facility] HEMATOLOGY Eosinophils 3.1 0.0 - 4.0 01/12 [facility] HEMATOLOGY Monocytes 10.9 2.0 - 12.0 01/12 [facility] HEMATOLOGY Basophils 0.5 0.0 - 1.0 01/12 [facility] HEMATOLOGY Basophils # 0.0 0.0 - 0.2 01/12 [facility] HEMATOLOGY Eosinophils 0.2 0.0 - 0.5 01/12 /2015 [facility] HEMATOLOGY Monocytes # 0.7 0.0 - 0.8 01/12 [facility] HEMATOLOGY Lymphocytes 1.4 1.0 - 5.5 01/12 [facility] HEMATOLOGY Segs-Bands # 4.3 1.5 - 8.1 01/12 [facility] CHEM PANEL Magnesium 1.8 1.8 - 2.4 01/10 Lvl /2015 [facility] CHEM PANEL Phosphorus 2.0 2.5 - 4.5 01/10 [facility] HEMATOLOGY Basophils # 0.0 0.0 - 0.2 01/10 /2015 [facility] HEMATOLOGY Macrocyte 1+ None Seen 01/10 *ABN* /2015 [facility] (01/11/16 6:48 PM) [facility] HEMATOLOGY INR 0.99 0.85 - 01/10 1.17 /2015 [facility] HEMATOLOGY PTT 23.5 22.9 - 01/10 35.8 /2015 [facility] HEMATOLOGY PT 13.4 12.0 - 01/10 14.7 /2015 [facility] [facility] BEDSIDE Comment1 Notify 10/06 NA Pao GLUCOSE RN/ /2012 [facility] TESTING [place] BEDSIDE Gluc POC 308 70 - 99 10/06 HI <sup>1</sup>I [facility] GL[facility]SE [facility] TESTING Data: [place] Upper Reportable Limit: 200 mg/dL. BEDSIDE Comment1 Notify 10/06 NA [facility] GLUCOSE RN/ /2012 [facility] TESTING [place] BEDSIDE Gluc POC 159 70 - 99 10/06 HI <sup>2</sup>I [facility] GL[facility]COSE [facility] TESTING Data: [place] Upper Reportable Limit: 200 mg/dL. CHEMISTRY AGAP 14.3 10.0 - 10/06 Normal [facility] 20.0 [facility] CHEMISTRY eGFR 75 10/06 NA <sup>4</sup>R esult Medical Comment: The Center eGFR is calculated using the CKD-EPI formula. In most young, healthy individuals the eGFR will be >90 mL/min/1.73m2 . The eGFR declines with age. An eGFR of 60-89 may be normal in some populations, particularly the elderly, for whom the CKD-EPI formula has not been extensively validated. Use of the eGFR is not recommended in the following populations:& lt;br/>
I ndividuals with unstable creatinine concentration s, including patients and those with serious co-morbid conditions.<b r/>
Patie nts with extremes in muscle mass or diet.

The data above are obtained from the National Kidney Disease Education Program (NKDEP) which additionally recommends that when the eGFR is used in patients with extremes of body mass index for purposes of drug dosing, the eGFR should be multiplied by the estimated BMI. CHEMISTRY Sodium Lvl 139 135 - 145 10/06 [facility] CHEMISTRY Chloride Lvl 104 95 - 109 10/06 [facility] CHEMISTRY CO2 25 24 - 32 10/06 [facility] CHEMISTRY Calcium Lvl 10.7 8.5 - 10.5 10/06 [facility] CHEMISTRY Potassium 4.3 3.5 - 5.1 10/06 Normal [facility] Center CHEMISTRY Glucose Lvl 262 70 - 99 10/06 [place] <sup>6</sup>I [place] nterpretive Medical Data: Adult Center reference range values reflect the clinical guidelines
of the [place] [employer]. CHEMISTRY Creatinine 0.8 0.5 - 1.4 10/06 Normal [facility] Center CHEMISTRY BUN 20 7 - 22 10/06 Normal [facility] HEMATOLOGY Hgb 14.0 12.0 - 10/06 Normal [facility] 16.0 /2012 [facility] HEMATOLOGY Hct 42.5 36.0 - 10/06 Normal [facility] 48.0 [facility] HEMATOLOGY MCV 92.3 81.0 - 10/06 Normal [facility] 99.0 [facility] Center HEMATOLOGY MCH 30.5 27.0 - 10/06 Normal [place] 31.0 /2012 [facility] HEMATOLOGY MCHC 33.0 32.0 - 10/06 Normal [facility] 36.0 /2012 [facility] Center HEMATOLOGY RDW 14.6 11.5 - 10/06 HI [facility] 14.5 /2012 [facility] Center HEMATOLOGY Platelet 215 133 - 450 10/06 Normal [facility] HEMATOLOGY MPV 10.0 7.4 - 10.4 10/06 Normal [facility] HEMATOLOGY RBC 4.60 4.20 - 10/06 Normal [facility] 5.40 /2012 Medical Center HEMATOLOGY WBC 13.0 3.7 - 10.4 10/06 [facility] BEDSIDE Comment1 Notify 10/06 NA [facility] GLUCOSE RN/MD /2012 Medical TESTING Center BEDSIDE Gluc POC 244 70 - 99 10/06 HI <sup>3</sup>I [facility] GLUCOSE [facility] nterpretive Medical TESTING Data: Center Upper Reportable Limit: 200 mg/dL. CHEMISTRY Magnesium 2.0 1.8 - 2.4 10/05 Normal [facility] Lvl Medical Center Microbiolog Culture: 10/04 [facility] y Urine Medical Center URINALYSIS UA 0.1 - 1.0 10/04 NA [facility] Urobilinogen /2012 [facility] URINALYSIS UA Color Yellow Yellow 10/04 NA [facility] Medical (10/04/2012 01:52:38) Ce nter URINALYSIS UA Bacteria Occasional /HPF None Seen 10/04 NA [facility] Medical (10/04/2012 01:52:38) Ce nter URINALYSIS UA Sq Epi Occasional /LPF Few 10/04 NA [facility] Medical (10/04/2012 01:52:38) Ce nter URINALYSIS UA RBC 6 0 - 2 10/04 [facility] URINALYSIS UA Leuk Est Small Negative 10/04 [facility] Medical (10/04/2012 01:52:38) Ce nter URINALYSIS UA WBC 12 0 - 5 10/04 [facility] URINALYSIS UA Protein 10 mg/dL Negative 10/04 [facility] Medical (10/04/2012 01:52:38) Ce nter URINALYSIS UA pH 5.0 5.0 - 8.0 10/04 Normal [facility] URINALYSIS UA Spec Grav 1.022 <=1.030 10/04 Normal [facility] URINALYSIS UA Turbidity Slight Clear 10/04 [facility] Medical (10/04/2012 01:52:38) Ce nter URINALYSIS UA Nitrite Negative Negative 10/04 Normal [facility] (10/04/2012 01:52:38) Ar dical Center URINALYSIS UA Blood Small Negative 10/04 [facility] * Medical (10/04/2012 01:52:38) Ce nter URINALYSIS UA Bili Negative Negative 10/04 [facility] Medical (10/04/2012 01:52:38) Ce nter URINALYSIS UA Ketones Negative mg/dL Negative 10/04 NA Medical (10/04/2012 01:52:38) Ce nter URINALYSIS UA Glucose 30 mg/dL Negative 10/04 [facility] Medical (10/04/2012 01:52:38) Ce nter CHEMISTRY Phosphorus 3.5 2.5 - 4.5 10/04 Normal [facility] CHEMISTRY AGAP 13.4 10.0 - 10/04 [facility] 20.0 [facility] CHEMISTRY Glucose Lvl 181 70 - 99 10/04 [place] <sup>7</sup>I T ex nterpretive Medical Data: Adult Center reference range values reflect the clinical guidelines
of the [place] [employer]. CHEMISTRY Creatinine 0.9 0.5 - 1.4 10/04 Normal [facility] CHEMISTRY BUN 17 7 - 22 10/04 Normal [facility] CHEMISTRY Sodium Lvl 140 135 - 145 10/04 Normal [facility] CHEMISTRY Chloride Lvl 105 95 - 109 10/04 Normal [facility] CHEMISTRY Calcium Lvl 9.7 8.5 - 10.5 10/04 [facility] [place] [facility] CHEMISTRY Potassium 4.4 3.5 - 5.1 10/04 Normal [facility] CHEMISTRY CO2 26 24 - 32 10/04 Normal [facility] CHEMISTRY eGFR 65 10/04 NA <sup>5</sup>R esult Medical Comment: The Center eGFR is calculated using the CKD-EPI formula. In most young, healthy individuals the eGFR will be >90 mL/min/1.73m2 . The eGFR declines with age. An eGFR of 60-89 may be normal in some populations, particularly the elderly, for whom the CKD-EPI formula has not been extensively validated. Use of the eGFR is not recommended in the following populations:& lt;br/>
I ndividuals with unstable creatinine concentration s, including patients and those with serious co-morbid conditions.<b r/>
Patie nts with extremes in muscle mass or diet.

The data above are obtained from the National Kidney Disease Education Program (NKDEP) which additionally recommends that when the eGFR is used in patients with extremes of body mass index for purposes of drug dosing, the eGFR should be multiplied by the estimated BMI. CHEMISTRY Magnesium 1.5 1.8 - 2.4 10/04 LOW [facility] HEMATOLOGY RBC 4.85 4.20 - 10/04 Normal [facility] [place] 5.40 /2012 Medical Center HEMATOLOGY WBC 9.2 3.7 - 10.4 10/04 Normal [facility] HEMATOLOGY Hgb 14.9 12.0 - 10/04 Normal [place] 16.0 /2012 Medical Center HEMATOLOGY MCHC 33.3 32.0 - 10/04 Normal [place] 36.0 /2012 [facility] Center HEMATOLOGY MCH 30.7 27.0 - 10/04 Normal [place] 31.0 /2012 [facility] Center HEMATOLOGY Hct 44.9 36.0 - 10/04 Normal [place] 48.0 /2012 Medical Center HEMATOLOGY MCV 92.4 81.0 - 10/04 Normal [place] 99.0 /2012 Medical Center HEMATOLOGY RDW 14.5 11.5 - 10/04 Normal [place] 14.5 Medical Center HEMATOLOGY Platelet 213 133 - 450 10/04 Normal [facility] HEMATOLOGY MPV 9.5 7.4 - 10.4 10/04 Normal [facility] [place] HEMATOLOGY Segs-Bands # 7.7 1.5 - 8.1 10/04 Normal [facility] HEMATOLOGY Basophils 0.3 0.0 - 1.0 10/04 Normal [facility] [place] HEMATOLOGY Monocytes # 0.6 0.0 - 0.8 10/04 Normal a [facility] HEMATOLOGY Lymphocytes 0.9 1.0 - 5.5 10/04 [place] [facility] HEMATOLOGY Lymphocytes 9.5 20.0 - 10/04 LOW [place] 40.0 /2012 Medical Center HEMATOLOGY Segs 84.1 45.0 - 10/04 HI [place] 75.0 Medical Center HEMATOLOGY Monocytes 6.0 2.0 - 12.0 10/04 Normal [facility] HEMATOLOGY Eosinophils 0.1 0.0 - 4.0 10/04 [facility] [place] [facility] CHEMISTRY POC A Glu 152 70 - 99 10/03 HI [facility] Center CHEMISTRY POC A LA 0.7 0.5 - 2.2 10/03 Normal [facility] Center CHEMISTRY POC A HCO3 24 22 - 26 10/03 Normal [facility] CHEMISTRY POC A BE -1 -2-2 - 2 10/03 Normal [facility] CHEMISTRY POC A Hct 35.0 36.0 - 10/03 LOW [place] 48.0 [facility] Center CHEMISTRY POC A O2 Sat 96.0 95.0 - 10/03 Normal [place] 100.0 Medical Center CHEMISTRY POC A K 3.4 3.5 - 5.1 10/03 LOW [facility] CHEMISTRY POC A Na 138 135 - 145 10/03 Normal [facility] CHEMISTRY POC A PCO2 40 35 - 45 10/03 Normal [facility] CHEMISTRY POC A Ca Ion 1.26 1.16 - 10/03 Normal [place] 1.30 Medical Center CHEMISTRY POC A Source ART 10/03 NA Medical Center CHEMISTRY POC A Temp 37.0 10/03 NA Medical Center CHEMISTRY POC A PO2 85 80 - 100 10/03 Normal [facility] CHEMISTRY POC A pH 7.39 7.35 - 10/03 Normal [place] 7.45 Medical Center CHEMISTRY POC A PCO2 44 35 - 45 10/03 Normal [facility] CHEMISTRY POC A BE 1 -2-2 - 2 10/03 Normal [facility] CHEMISTRY POC A HCO3 26 22 - 26 10/03 Normal [facility] CHEMISTRY POC A PO2 161 80 - 100 10/03 [facility] CHEMISTRY POC A Na 137 135 - 145 10/03 Normal [facility] Center CHEMISTRY POC A Ca Ion 1.29 1.16 - 10/03 Normal [place] 1. [facility] Center CHEMISTRY POC A O2 Sat 99.0 95.0 - 10/03 Normal [place] 100.0 Medical Center CHEMISTRY POC A K 3.9 3.5 - 5.1 10/03 Normal [facility] CHEMISTRY POC A Hct 38.0 36.0 - 10/03 Normal [place] 48.0 Medical Center CHEMISTRY POC A Source ART 10/03 NA Medical Center CHEMISTRY POC A pH 7.38 7.35 - 10/03 Normal [place] 7.45 Medical Center CHEMISTRY POC A Temp 37.0 10/03 NA [facility] Center CHEMISTRY POC A Glu 150 70 - 99 10/03 HI [facility] CHEMISTRY POC A LA 1.1 0.5 - 2.2 10/03 Normal [facility] Center BLOOD BANK ABO/Rh A NEG 10/03 Unknown [place] RESULTS Medical Center BLOOD BANK Antibody Negative 04/18 Normal [facility] [place] RESULTS Scrn (10/03/2012 09:25:00) /2012 [facility] Pathology Reports No Data Provided for This Section Diagnostic Reports Report Value Date Source Knee 1-2 Views EXAMINATION: Left knee 2 views 01/13/2016 [facility] unilateral DX HISTORY: Left knee pain status post fall; left k nee effusion FINDINGS: 2 views of the lef t knee on 3 radiographs are performed without comparison. There is a 3 component total knee arthroplasty in near-anatomic alignment without periprosthetic fracture or osteolysis. There is a moderate to large left knee effusion. IMPRESSION: 1. Moderate to large left knee effusion. 2. Left total knee arthropla sty in near-anatomic alignment without periprosthetic fracture Spine lumbar 2 or 3 LUMBAR SPINE 4 VIEWS 01/13/[address] [facility] views DX Clinical History: 75-year-old female with low ba ck pain. Comparison: Lumbar spine magnetic resonance imag ing 01/12/2016 Findings: Bones are osteopenic. Lumbar spine series demonstrates normal alignmen t of the lumbar vertebra. Vertebral body height is shahab ntained at all levels with ventral and small dorsal osteophytes. The intervertebral spaces L4 -L5 and L5-S1 are significant narrow consistent with disc disease. Facet joints are hypertrophi c at the lower lumbar spine. The prevertebral soft tissues are unremarkable with moderate atherosclerotic calcifications of aorta and iliac vessels. Impression: Osteopenia. Lumbar vertebral bodies are aligned. Moderate lower lumbar spondylosis. L4-L5 and L5-S1 disc disease. Hip wo contrast MRI EXAMINATION: MRI of the left hip without contrast 01/13/2016 [facility] HISTORY: Left hip pain status post fall; left th igh muscle strain/hematoma FINDINGS: There are no radio graphs available for review. Multiplanar, multisequence magnetic resonance imaging of the pelvis and left hip was performed with a local coil without contrast. There is no fracture. There is no evidence of avascular necrosis of either hip. There is focal soft tissue e prakash within the visualized proximal left rectus femoris muscle beginning at the level of the subtrochanteric femur and extending distally for at least 9 cm, but incompletely imaged (series 2, images 21 through 25 and series 5, images 19 through 24). In addition, there is mild edema within the medial aspect of the left adductor longus and brevis muscles, as well as, the left iliacus muscle consistent w ith low-grade muscle strains. Mild perifascial edema is noted along the lateral aspect of the bilateral thigh near the level of the greater trochanters and there is mild subc utaneous edema. The left sci atic nerve is normal. The common hamstring origin attachments are normal bilaterally. There is minimal partial-thi ckness chondrosis along the superior weightbearing left hip joint without subchondral edema. The left hip labrum is intact on this non arthrographic examination. The left lig amentum teres is degenerated with likely partial thickness tearing. The left hip joint capsule is intact. Limited evaluation of the co ntralateral right hip demonstrates no gross intra- articular abnormality. There is mild osteoarthrosis of the symphysis pubis and mild bilateral sacroiliac joint osteoarthritis. IMPRESSION: 1. Focal soft tissue edema w ithin the visualized proximal left rectus femoris muscle beginning at the level of the subtrochanteric femur and extending distally from at least 9 cm; however, this is incom pletely imaged on this magne tic resonance imaging of the left hip. This either represents a moderate grade strain with partial thickness tearing of the left rectus femoris muscle or potentially, a muscle hematoma. 2. Mild edema within the med ial aspect of the left adductor longus and brevis muscles, as well as, the left iliacus muscle consistent with low-grade muscle strains. 3. No acute fracture of the pelvis, sacrum, or b ilateral proximal femora. 4. Minimal left hip chondros is with partial thickness chondrosis along the superior weightbearing left hip joint, but no subchondral edema. 5. Degeneration and likely p artial thickness tearing of the left ligamentum teres. 6. Mild osteoarthrosis of th e symphysis pubis and mild bilateral sacroiliac joint osteoarthritis. Spine lumbar wo EXAM: MRI LUMBAR SPINE WITHOUT CONTRAST 01/12/[address] [place] [address] contrast MRI DATE: 01/11/2016 10:08 PM CDT . CLINICAL INDICATION: Pain with neurologic manif estation . TECHNIQUE: Multiplanar, multisequence MRI lumbar spine without IV contrast COMPARISON: Unavailable FINDINGS: The lumbar vertebral bodies have normal height, shape, and alignment. The lordosis is straightened. There is no worrisome marrow signal abnormality. The conus terminates normally at L1-L2. The paravertebral soft tissues are within normal limits. Disc spaces, spinal canal, and neural foramina: Short pedicles and dorsal ep idural lipomatosis cause baseline narrowing of the central canal. T12-L1. Intervertebral disc height and signal are maintained. Posterior elements are normal. There is no stenosis. L1-L2. Intervertebral disc height and signal are maintained. Posterior elements are normal. There is no stenosis. L2-L3. Loss of interverteb ral disc height and signal with small diffuse disc bulge and small radial annular fissure. Facets are mildly enlarged. Central canal measures 9 mm without cauda equina crowdi ng. Lateral recesses are abel rowed with disc and facets contacting each L3 nerve root. Neural foramina are patent. L3-L4. Loss of interverteb ral disc height and signal with small diffuse [...] roots. The left exiting nerve root is min imally contacted. L4-L5. Loss of interverteb ral disc height and signal with moderate diffuse disc bulge and radial annular fissuring. Facets are enlarged bilaterally with ligamentous redundancy and synovial inflammatio n, but no synovial cyst. Zoya tral canal measures 7 mm without cauda equina crowding. There is left greater the right lateral recess stenosis with slight mass effect on the descending L5 nerve roots. Ther e is moderate moderate narro wing of the neural foramina without L4 nerve root mass effect. L5-S1. Loss of interverteb ral disc height and signal with circumferential disc osteophyte complex asymmetric to the left extra foraminal zone. Facets are mildly enlarged. There is a 2 mm central and l eft subarticular zone protru huan. Central canal measures 9 mm. Left lateral recess is narrowed with mass effect on the left S1 nerve root. There is moderate to severe stenosis of left neural foramen and moderate stenosis of the ri ght. The left exiting nerve root is flattened by disc osteophyte complex. IMPRESSION: 1. Multilevel moderate centr al canal stenosis without cauda equina compression. Degenerative stenosis is exacerbated by underlying short pedicles and dorsal epidural lipomatosis 2. L5-S1 moderate to severe left neural foramen stenosis. Multilevel moderate foramen stenosis described by level above 3. Annular fissures and L4-L 5 facet synovial inflammation or additional potential sources of pain Chest 2 views DX CLINICAL HISTORY: Abnormal chest sounds. 2015 [facility] : 1940. TECHNIQUE: PA and lateral views of the chest. Co mparison: 09/14/2012. Heart size: Normal. Tortuous aorta. Lungs: No acute consolidation. Shallow inspirati on. Pleura: No pleural effusion. Mediastinum and elizabeth: Unremarkable. Skeletal: Unremarkable. IMPRESSION: 1. No active disease in the chest. 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 FINDINGS: Postsurgical sanchez es from prior ACDF from C4 to C6 are again identified. There is no evidence of hardware loosening or failure. No acute fractures identified. The normal lordotic curvature and alignment of the cervical s pine is maintained. The remainder of the exam is unchanged. IMPRESSION: Unchanged satisf actory alignment of prior C4-C6 ACDF with no interval detrimental change Spine cervical 2 or 3 EXAM: XR CERVICAL SPINE 2 VIEWS 09/17/2013 [facility] views DATE: 2013-09-17 12:00:00 INDICATION: 723.4 Brachial Neuritis or Radicul itis NOS COMPARISON: March 19, 2013 TECHNIQUE: AP and lateral r adiographs of the cervical spine show from the skull base through C7. FINDINGS: The patient is aga in noted to be status post anterior fusion from C4- C6 with interbody spacers between these levels. Alignment is within normal limits. There is no perihardware lucency or evid ence of failure. No new or superimposed bony abnormality is identified. Prevertebral soft tissue contours are within normal limits. Vascular calcifications overlie the carotid bulbs. IMPRESSION: Unchanged, satis factory alignment following anterior fusion at C4- C6 . Spine cervical 2 or 3 EXAM: XR CERVICAL SPINE 3 VIEWS 03/19/2013 [facility] views DATE: March 19, 2013 at 0908 INDICATION: 723.4 Brachial Neuritis or Radicul itis NOS COMPARISON: C-spine x-rays dated December 25, 2012 TECHNIQUE: AP, open-mouth o dontoid and lateral radiographs of the cervical spine show from the skull base through T1. DISCUSSION: Patient is statu s post anterior fusion of C4-C6. There is no evidence of hardware failure. There is unchanged moderate disc space narrowing between C6-C7, and mild degenerative disease at C2 -C3. Cervical spine alignmen t is maintained. No prevertebral or paraspinous soft tissue abnormality is identified. IMPRESSION: 1. Satisfactory appearance status post anterior fusion of C4-C6. 2. Moderate degenerative disc disease at C6-C7, unchanged Spine cervical 2 or 3 EXAM: XR CERVICAL SPINE 2 VIEWS 12/25/2012 [facility] views DATE: December 25, 2012, 0827 hours. 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 TECHNIQUE: AP and lateral r adiographs cervical spine from the skull base through C7. DISCUSSION: Again seen are a nterior spinal fusion hardware from C4 to C6 with intervertebral disc spacers. The cervical spine is in good alignment with no malalignment identified. There is no perihardwa re lucency or evidence of fa ilure. The mild degenerative changes at the C6-C7 disc space with endplate sclerosis end osteophyte formation are unchanged from prior exams. No prevertebral or paraspinous soft tissue abnormality is identified. IMPRESSION: 1. Satisfactory alignment of cervical spine with unchanged appearance of anterior fusion hardware from C4 to C6 without evidence of hardware complication. 2. No significant change in degenerative changes at the C6-C7 disc space. 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 FINDINGS: Anterior interbody fusions from C4 to C6 are reidentified. Interbody screws with intervertebral spacers are in unchanged position. Screws have good purchase. There is no perihardware lucency o r fracture. Cervical alignme nt is unchanged. There is no prespinous or paraspinous soft tissue abnormality. IMPRESSION: 1. No acute abnormality. 2. Satisfactory appearance o f C4-C6 anterior fusion without evidence of hardware failure. Consultation Notes No Data Provided for This Section Discharge Summaries No Data Provided for This Section History and Physicals No Data Provided for This Section Vital Signs Vital Sign Value Date Comments Source Temperature Oral (F) 97.5 F 02/14/[address] [facility] 65 [facility]14[facility]2016 [facility] Systolic (mm Hg) 122 02/14/2016 [facility] [place] Diastolic (mm Hg) 54 02/14/2016 [facility] Systolic (mm Hg) 117 02/14/2016 [facility] Diastolic (mm Hg) 71 02/14/2016 [facility] Respitory Rate 18 02/14/2016 [facility] C ity Temperature Oral (F) 97.6 F 02/14/[address] [facility] Heart Rate 61 02/14/2016 [facility] Temperature Oral (F) 97.8 F 02/14/[address] [facility] Respitory Rate 18 02/14/2016 [facility] Heart Rate 70 02/14/2016 [facility] Systolic (mm Hg) 171 02/14/2016 [facility] [place] Diastolic (mm Hg) 82 02/14/2016 [facility] Weight 89.091 02/10/2016 [facility] Weight 89.545 02/08/2016 [facility] BMI Calculated 32.85 02/08/2016 [facility] Height 165.1 cm 02/08/2016 [facility] Weight 89.545 02/08/2016 [facility] Height 172.72 cm 02/08/2016 [facility] BMI Calculated 30.02 02/08/2016 [facility] Respitory Rate 20 01/19/2016 [facility] Systolic (mm Hg) 131 01/19/2016 [facility] Diastolic (mm Hg) 76 01/19/2016 [facility] Temperature Oral (F) 98.1 F 01/19/[address] [facility] Heart Rate 73 01/19/2016 [facility] Weight 91.864 01/19/2016 [facility] Temperature Oral (F) 99.5 F 01/19/[address] [facility] Heart Rate 59 01/19/2016 [facility] Respitory Rate 20 01/19/2016 [facility] Systolic (mm Hg) 129 01/19/2016 [facility] Diastolic (mm Hg) 68 01/19/2016 [facility] Systolic (mm Hg) 157 01/19/2016 [facility] Diastolic (mm Hg) 78 01/19/2016 [facility] Heart Rate 61 01/19/2016 [facility] y Respitory Rate 16 01/19/2016 [facility] Temperature Oral (F) 97.3 F 01/19/2016 [facility] Calculated 35.95 01/11/2016 [facility] Weight 97.983 01/11/2016 [facility] y Height 165.1 cm 01/11/2016 [facility] y Respitory Rate 33 10/06/2012 [facility] Systolic (mm Hg) 131 10/06/2012 [facility] [place] Diastolic (mm Hg) 53 10/06/2012 [facility] Respitory Rate 16 10/06/2012 [facility] Systolic (mm Hg) 159 10/06/2012 [facility] d[facility] Center Diastolic (mm Hg) 44 10/06/2012 [facility] Systolic (mm Hg) 146 10/06/2012 [facility] d[facility] Center Diastolic (mm Hg) 56 10/06/[address] [facility] [place] Respitory Rate 19 10/06/2012 [facility] Temperature Oral (F) 96.3 F 10/06/2012 [facility] Temperature Oral (F) 97.9 F 10/06/2012 [facility] Temperature Oral (F) 97.6 F 10/05/2012 [facility] Weight 91.818 10/03/2012 [facility] Height 165.1 cm 10/03/2012 [facility] Heart Rate 55 10/03/2012 [facility] Heart Rate 64 10/01/2012 [facility] Height 165.1 cm 10/01/2012 [facility] Weight 91.818 10/01/2012 [facility] Encounters Location Location Encounter Encounter Reason Attending ADM DC Stat us Source Details Type Number For Provider Date Date Visit [facility] Inpatient [id number] CERVICAL KERON 10/03 10/06 [facility] TIS, Center CERVICAL DISC DISPLACE MENT WITH M [facility] Outpt Diag [id number] _MAPID:Sylvester Cabrales 09/17 09/18 [facility] [id number] [id number] [facility] Outpt Diag [id number] K[place] 03/25 03/26 [facility] [id number] RILEY HALL 12/01 Acti ve [facility] Outpatient [id number] RILEY HALL 12/14 Acti ve [facility] Outpatient [id number] [place] 12/14 [facility] 2 [place] [facility] [id number] [place] 12/14 [facility] Admit [id number] [facility] 01/10 01/10 [facility] 7 [facility] Inpatient [id number] [facility] 01/10 01/18 [facility] 8 [facility] Outpatient [id number] [place] 01/16 [facility] 4 [place] [facility] [id number] RILEY [place] 02/07 Acti ve [facility] [id number] [place] 02/07 02/14 [facility] Outpatient [id number] [place] 03/09 [facility] 6 [facility] [id number] [place] 03/27 [facility] M [facility] 8 [place] [facility] [id number] [place] 04/21 [facility] M [facility] 7 [place] [facility] [id number] [place] 06/30 [facility] M [facility] 9 [place] Procedures Procedure Code Date Perfomer Comments Source Operation [id number] 1abscess [place] <sup>1</sup> drainage/ [facility] er ofelia-rectal Cervical [id number] [facility] discectomy [place] [id number] bilateral [facility]<sup> [place] 1</sup> Operation<sup>2< [id number] abscess Mem[facility] ial /sup> drainage/ [place] ofelia-rectal Assessment and Plan Assessment and Plan Date Source Extracted from:Title: DC Summary - Neurosurgery 02/15/2016 [facility] Author: Mora Wills Date: 02/14/16 Attending: Riley Hall MD Service: Neurosurgery Code status: None Specified=FULL CODE Reason for Admission: 14312, 49598 X3, CONNECTIVE TISSUE AND DISC STENOSIS OF Working DRG: Spinal fusion except cervical w/o FPC Isolation: None Documented Consulting Physicians: (none on file) DISCHARGE SUMMARY ATTENDING PHYSICIAN: RILEY HALL MD - NEUROSURGERY CONSULTING PHYSICIAN/S: none DATE OF ADMIT: 02/08/2016 DATE OF PROCEDURE: same as above DATE OF DISCHARGE: 02/14/2016 ADMITTING DIAGNOSIS: L2-L5 stenosis/disc displacement DISCHARGE DIAGNOSIS: same as above SURGERY PERFORMED: L2-L5 decompressive l aminectomies and bilateral foraminotomies. DISCHARGE TO: rehab facility DISPOSITION: stable HOSPITAL COURSE: Patient evaluated for n eurosurgical evaluation for the above- stated diagnoses. Surgery was deemed medically appropriate and recommended. Patient admitted to hospital on above- ated date and underwent above-stated procedure without complications. Please see operative notes for complete details. Patient with excessive post-operative pain, complicated by inappropriate use of MISSILE INSPECTOR PREFLIGHT and excessive lethargy due to narcotic medications. Positive but minimal ambulation. Tolerating diet. Constipation resolved post-operatively with multiple oral m edications and suppository. Patient deemed appropriate for d ischarge. Alert and oriented x 3, no acute distres s. Nondyspneic, trachea mobile. CNIII- XII grossly intact. Moving all extremities with adequate motor strength on exam. Sensation intact. No ofelia-incisional edema, no palpable mass. Incision c/d/i. No ex pressible discharge. Clean dressing in place. FOLLOW-UP CARE: 1) Dr. Hall: 4 weeks post-operatively, sooner if needed. MEDICATION: may resume at home meds, in structed no NSAID, ASA medication for 3 weeks post-op and discharged with: --MS Contin 15mg po Q12H #60 refill 0 --Pawlet 10/325mg po Q6H prn pain #90, refill 0 --Baclofen 10mg, Half tab po TID prn spasm #45, refill 0 ACTIVITY: --As tolerated. No twisting, forward fle xion, stooping, extension, jarring activity. --No heavy lifting ( > 10 pounds). --No driving for 2 weeks and cleared at follow-up appointmen t. -- Wash incision daily with mild soap an d water. No scrubbing. No direct water flow to incision. No submersing incision underwater for at least 2 weeks. Look at and clean incision daily. Look for any signs of infection. Pat dry. Cover if discharge. --ETOH, tobacco use not permitted. DIET: continue previous preoperative diet. SYMPTOMS: Patient advised if experiences any signs of infection, to include but not limited to: ofelia-incisional erythema, heat, tenderness to palpation, purulent discharge, excessive serosanguinous disc harge, dehiscence of wound, fever > 101. 5, chills, AMS, bowel/bladder change, neurologic changes/deficits, new weakness, numbness, disproportionate pain, dyspnea, chest pain or any other question able symptoms to immediately follow-up o r report to ER. Patient is in understanding of this. Dictated by Mora Wills PA-C on behalf of Dr. Riley Hall. Extracted from:Title: Progress Note Author: Riley Hall MD Date: 02/13/16 Progress Note - Daily [facility] Completed: Jan, 12:47 by Riley Hall MD RM: 5M30 - 00, J5MA ADIEL NDIAYEVENESSA Martinez 75y (: 1940) F Attending: Riley Hall MD Service: Neurosurgery Reason for Admission: 38881, 71940 X3, CONNECTIVE TISSUE AND DISC STENOSIS OF Working DRG: Spinal fusion except cervical w/o FPC Code status: None Specified=FULL CODE Current diet: Regular Isolation: None Documented Allergies: NKFA, NKDA SUBJECTIVE: Patient overall doing well. Patient reported experiencing expected postoperative pain at surgical site. Patient reported that she mobilized further with PT today. Patient has been voidin g without difficulty. Patient's was at bedside. OBJECTIVE: General: NAD; patient resting comfortably in bed. Incison: TALENT ACQUISITION DIRECTOR, CDI, no redness, no swelling, no active draina ge. Neuro: Awake and alert. Speech is fluen t. Pupils equal, round, and reactive. Face symmetric. Sensation is intact to light touch in lower extremities bilaterally. Strength Iliopsoas: (R) 5/(L) 3 to 4- Quadriceps: (R) 5/(L) 2 to 3 Tibialis Anterior: (R) 5/(L) 5 Extensor hallucus longus: (R) 5/(L) 5 Gastrocnemius: (R) 5/(L) 5 24hr Labs 02/12 1150 Glucose POC 181 H 02/12 0645 Glucose POC 111 H 02/11 2043 Glucose POC 189 H 02/11 1617 Glucose POC 189 H Vitals Tmp(F) Pulse BP RR SpO2 FIO2 02/12 12:00 97.5 64 148/67 -- 95 --- 02/12 08:00 98.2 65 161/89 -- 93 --- 02/12 04:00 98.1 74 138/75 18 93 --- 02/12 00:00 97.7 62 136/76 18 92 --- 02/11 20:00 97.5 65 148/70 18 92 --- 24 Hr Tmax: 98.5F (36.94c) at 02/11 16:0 0 Vital Signs are the last 5 in the past 48 hours. Date Wt(kg) Wt(lb) Ht(cm) Ht(in) Method 02/09 89.09 196.00 Measured 02/07 (initial) 89.00 195.80 Measured 02/07 172.72 68.00 Stated I&O Record In Out Bal 02/12 24hr Tot 0 0 0 02/11 24hr Tot 240 400 -160 Medications (41) Active Scheduled Meds (15): 02/11/16 acetaminophen (Tylenol) 650 mg PO Q6H 02/09/16 amLODIPine 10 mg PO Daily 02/15/16 atorvastatin (Lipitor) 5 mg PO QTue 02/11/16 atorvastatin (Lipitor) 5 mg PO QFri 02/11/16 baclofen 5 mg PO TID 02/08/16 carvedilol 12.5 mg PO Q12H 02/09/16 cholecalciferol (Vitamin D3) 2,000 IntlUnit PO Cindy y 02/11/16 docusate 100 mg PO TID 02/09/16 furosemide (furosemide 20 mg oral tablet) 20 mg PO Daily 02/08/16 insulin glargine (Lantus 100 units/mL) 40 unit SUB- Q Bedtime 02/09/16 irbesartan 300 mg PO Daily 02/12/16 morphine Sulfate (MS Contin) 15 mg PO Q12H 02/09/16 non-formulary (tradjenta) 5 mg PO Daily 02/09/16 polyethylene glycol 3350 (MiraLax) 17 gm PO Daily 02/09/16 spironolactone 25 mg PO Daily Unscheduled Meds: None PRN Meds (25): 02/09/16 Dextrose 50% in Water IV (Dextrose 50% Syringe) 12. 5 gm IVP PRN 02/09/16 Dextrose 50% in Water IV (Dextrose 50% Syringe) 25 gm IVP PRN 02/09/16 Sodium Chloride 0.9% IV 25 mL IV PRN 02/08/16 acetaminophen-hydrocodone (Pawlet 10/325 oral tablet ) 1 tab PO Q4H 02/10/16 acetaminophen-hydrocodone (Pawlet 5/325 oral tablet) 1 tab PO Q4H 02/11/16 bisacodyl 10 mg WV Daily 02/11/16 bisacodyl 5 mg PO TID 02/08/16 diphenhydrAMINE 25 mg PO TID 02/09/16 glucagon 1 mg IM PRN 02/10/16 hydromorphone (Dilaudid) 0.2 mg IVP Q2H 02/09/16 insulin aspart 1 unit SUB-Q TID-Before Meals 02/09/16 insulin aspart 2 unit SUB-Q TID-Before Meals 02/09/16 insulin aspart 3 unit SUB-Q TID-Before Meals 02/09/16 insulin aspart 4 unit SUB-Q TID-Before Meals 02/09/16 insulin aspart 5 unit SUB-Q TID-Before Meals 02/09/16 insulin aspart 1 unit SUB-Q Bedtime 02/09/16 insulin aspart 2 unit SUB-Q Bedtime 02/09/16 insulin aspart 3 unit SUB-Q Bedtime 02/09/16 insulin aspart 4 unit SUB-Q Bedtime 02/08/16 naloxone 0.04 mg IVP Q2MIN 02/08/16 ondansetron (Zofran) 4 mg IV Q6H 02/08/16 phenol topical (Chloraseptic 1.4% spray) 1 spray TO P Q2H 02/11/16 simethicone 80 mg CHEW QID 02/09/16 sodium chloride (BD Normal Saline Flush) 5 mL IV WV N 02/09/16 sodium chloride (BD Normal Saline Flush) 10 mL IV P RN One Time Meds: None Continuous Infusions (1): 02/08/16 Lactated Ringers 1,000 mL 1,000 mL 75 ml/hr ASSESSMENT: 1. L2-L5 stenosis/disc displacement sta tus post L2-L5 decompressive laminectomies and bilateral foraminotomies - POD #5 PLAN and TREATMENT: 1. Patient overall doing well postoperatively. 2. Pain control adequate with current m edication regimen. Monitor pain control. 3. Patient voiding. 4. Physical Therapy mobilizing patient. Encourage mobiliza tion. 5. Discharge planning. Patient evaluat ed for inpatient Rehab. From a Neurosurgical perspective patient is stable for discharge to Rehab tomorrow. Extracted from:Title: Operative Report Author: Riley Hall MD Date: 02/08/16 OP PATIENT NAME: AMANDA NDIAYE DATE OF OPERATION/PROCEDURE: 02/08/2016 PREOPERATIVE DIAGNOSES: Left lower extremity radicular type pain symptoms and associated weakness as well as low back pain with radiographic studies of the lumbar spine demonstrating the presence of spondylitic changes at the L2-3, L3-4 L4-5, and L5-S1 segments with a disc bulge noted at L2-3, L3-4, L4-5, and L5-S1 which, in conjunction with hypertrophied ligamentous tissue and facet arthropathy, resulted in moderate to brandon re central canal stenosis and severe claude ateral lateral recess stenosis at L2-3 and L3-4 as well as severe central canal stenosis and severe bilateral lateral recess stenosis at L4-5 with moderate left l ateral recess stenosis noted at at L5-S1. (ICD 10: M51.16 an d M99.43) POSTOPERATIVE DIAGNOSES Left lower extremity radicular type pain symptoms and associated weakness as well as low back pain with radiographic studies of the lumbar spine demonstrating the presence of spondylitic changes at the L2-3, L3-4 L4-5, and L5-S1 segments with a disc bulge noted at L2-3, L3-4, L4-5, and L5-S1 which, in conjunction with hypertrophied ligamentous tissue and facet arthropathy, resulted in moderate to brandon re central canal stenosis and severe claude ateral lateral recess stenosis at L2-3 and L3-4 as well as severe central canal stenosis and severe bilateral lateral recess stenosis at L4-5 with moderate left l ateral recess stenosis noted at at L5-S1. (ICD 10: M51.16 an d M99.43) OPERATIVE PROCEDURE: Decompressive laminectomies and associat ed bilateral foraminotomies at L2, L3, L4, and L5. (CPT: 57019 and 61906 x3) SURGEON Riley Hall MD SALES DRIVER TAMIKO Barrientos ANESTHESIA General endotracheal anesthesia ESTIMATED BLOOD LOSS 100 mL. DRAINS ANA drain x2 (Left - subfascial; right - subcutaneous) INDICATIONS FOR PROCEDURE: The patient is a 75-year-old, right-hand ed, white female who was originally evaluated in the neurosurgery clinic on December 02, 2015 for symptoms that have included left lower extremity radicular type pain symptoms and associated weakness as wel l as low back pain. The patient's history, clinical examination findings, as well as the results of radiographic studies have been extensively detailed in [facility] patient's medical record. On clinica l exam the patient was noted to exhibit some weakness in the proximal muscle groups of the left lower extremity. With regards to the patient's lumbar p athology and associated symptoms, both n on-operative and operative treatment options were discussed with the patient. At that time the patient expressed her desire to pursue medical management and phys ical therapy in an attempt to alleviate her symptoms. The patient was subsequently hospitalized at [facility] from January 10 until January 19, 2016 for evaluation and treatment regarding an exacerbation in her left lower extrem ity and lumbar symptoms. Radiographic studies reviewed as part of the patient's evaluation during the course of her hospitalization included a MRI scan of [facility] lumbar spine. The images demonstrate d the presence of spondylitic changes at the L2-3, L3-4, L4-5, and L5-S1 as manifested by the presence of signal change within these lumbar disc space segments. A t L2-3 the images demonstrated the prese nce of a disc bulge which, in conjunction with hypertrophied ligamentous tissue and facet arthropathy, resulted in moderate to severe central canal stenosis and s evere bilateral lateral recess stenosis. At L3-4 the images demonstrated the presence of a disc bulge which, in conjunction with hypertrophied ligamentous tissue and facet arthropathy, resulted in moder ate to severe central canal stenosis and severe bilateral lateral recess stenosis. At L4-5 the images demonstrated the presence of a disc bulge which, in conjunction with hypertrophied ligamentous tiss ue and facet arthropathy, resulted in se viridiana central canal stenosis and severe bilateral lateral recess stenosis. At L5-S1 the images demonstrated the presence of a disc bulge which, in conjunction wit h hypertrophied ligamentous tissue and f acet arthropathy, resulted in moderate left lateral recess stenosis. Near total loss of disc space height was noted at L5-S1. With regards to the patient's lumbar pathology and associated symptom s, it was recommended that the patient initially pursue a course of inpatient therapy as the patient was so deconditioned with operative intervention to be pursued following this period of therapy. With regards to possible operative inter vention, risks and benefits of surgery were thoroughly discussed with the patient. The potential risks of operative intervention discussed with the patient inclu ded but were not limited to the general operative risks of , bleeding, and infection. In addition, the patient was advised that surgical procedures involving this segment of the spine could also r esult in paralysis, loss of bowel and bl adder function, loss of sexual function, as well as changes in sensation in the extremities that could include pain, numbness, tingling and burning which could be temporary or permanent. The patient wa s advised of the possibility of a spinal fluid leak, which could require additional intervention. The patient was counseled that the surgical procedure may fail to relieve her symptoms or could potenti ally make her symptoms worse. The potential benefit of operative intervention would be to achieve a reduction in the severity of the patient's symptoms. The patient is noted to have expressed h er general understanding of the nature of her underlying lumbar pathology as well as the potential treatment options for this pathology. The patient is also note d to have expressed her general understa nding of the nature of the risks and benefits associated with possible operative intervention. After considering the various treatment modalities discussed, the patient ultimately expressed her desire to pursue operative. The patient is thus taken to the operating room at this time for the above-described lumbar decompression procedure. DESCRIPTION OF PROCEDURE: The patient was brought to the operating room. While in the hospital bed, the patient was administered the appropriate preanesthetic agents. The patient was intubated and subsequently placed under gen eral endotracheal anesthesia. [facility] acquired the appropriate vascular access on the patient. The patient was administered preoperative IV antibiotics. A Rachel catheter was inserted. S equential compression stockings were jessica cr on the patient's distal bilateral lower extremities. The patient was subsequently positioned prone on the Artem table. All contact areas were inspect ed to ensure there was proper padding. The patient's lumbar region was then prepped and draped in the usual sterile fashion. A midline incision was then made in the lumbar region over the presumed L2 through S1 lumbosacral segments. The surgical incision was made sharply in the skin with a #10 blade. Utilizing the monopolar cautery, the surgical incision was exte nded through the subcutaneous tissue to the level of the lumbar fascia. Self-retaining retractors were placed in the surgical incision to allow for adequate retr action of the skin and subcutaneous tiss ue. Utilizing the monopolar cautery, a midline incision was then made in the lumbar fascia. Subsequently, the paraspinous muscles on the right and left were the n reflected laterally off the spinous pr ocess and lamina of the L2, L3, L4, and L5 vertebral segments bilaterally in a subperiosteal fashion utilizing the monopolar cautery as well as a Carrizales periosteal elevator. The lumbar paraspinous muscle s were reflected lateral to the facet complex bilaterally at the L2 through L5 lumbar segments. Self-retaining retractors were advanced in the surgical incision to allow for adequate retraction of the lumbar paraspinous muscles as well as the overlying soft tissue. Once appropriate exposure of the spinal column had been achieved, an intraoperative radiographic study was then obtained in order to hunter kaylee the appropriate operative segments. Once the appropriate operative segments had been identified and verified, attention was then directed towards accomplishing the decompressive portion of the procedure. Utilizing the bone scalpel, the lateral margin of the lamina was then incised bilaterally at the L2, L3, L4, and L5 vertebral segments. The bone scalpel was used to make an incision in the lamina bilat erally at the L2, L3, L4, and L5 vertebr al segments until the lamina had been completely incised bilaterally at these segments resulting in essentially disarticulation of the spinous process and lamina complex of the L2, L3, L4, and L5 verteb ral segments from the remaining posterior osseous elements at these segments. The incision in the lamina was made just medial to the facet complex bilaterally at the L2, L3, L4, and L5 vertebral segmen ts. Care was taken to not violate the facet complex at the targeted operative segments. Subsequently, utilizing a Leksell rongeur, the spinous process and ramón a complex of the L2, L3, L4, and L5 vert ebral segments was then elevated in an en bloc type fashion off the spinal canal at the L2, L3, L4, and L5 vertebral segments. Various Kerrison rongeurs were use d to resect any ligamentum flavum which resulted in tethering of the spinous process and lamina complex at the L2, L3, L4, and L5 vertebral segments. Once the spinous process and lamina complex of the L2, L3, L4, and L5 vertebral segments vargas d been resected in an en bloc type fashion, the underlying central canal at the L2, L3, L4, and L5 vertebral segments was visualized. Following resection of the spinous process and lamina complex at th e L2, L3, L4, and L5 vertebral segments, the underlying ligamentum flavum was identified as well as the thecal sac. Residual ligamentum flavum overlying the cent ral aspect of the spinal canal at the L2 , L3, L4, and L5 vertebral segments was resected with the aid of various Kerrison rongeurs. Following resection of the ligamentum flavum centrally at the L2, L3, L4, and L5 vertebral segments, the unde rlying thecal sac was identified. The patient is noted to have had moderate to severe central canal stenosis at L2-3, L3-4, and L4-5 secondary to both hypertroph ied ligamentous tissue and facet arthrop athy. The central canal stenosis was especially prominent at the L4-5 segment. Ultimately, following the en bloc resection of the the spinous process and lamina complex of the L2, L3, L4, and L5 verte bral segments and the underlying ligamentum flavum, excellent central decompression of the thecal sac was achieved at the L2, L3, L4, and L5 vertebral segments. The patient was noted to have significan t hypertrophied ligamentous tissue extending along the lateral recess of the L2, L3, L4, and L5 vertebral segments bilaterally which, in conjuction with severe fa cet arthropathy, resulted in severe bila teral lateral recess stenosis at the L2- 3, L3-4, and L4-5 vertebral segments and moderate bilateral lateral recess stenosis at the L5-S1 vertebral segments. Util izing a combination of various Kerrison rongeurs, the hypertrophied ligamentous tissue extending along the lateral recess of the L2, L3, L4, and L5 vertebral segments was then resected bilaterally. Abdirashid ious Kerrison rongeurs were also used to undercut the facet complex bilaterally at the L2-3 through L4-5 segments. Subsequently, utilizing a Nancy probe as well as direct visualization, the L2, L3, L 4, L5, and S1 pedicles were identified b ilaterally as well as their associated neural foramen. In addition, utilizing a [place] probe as well as direct visualization, the exiting L2, L3, L4, L5, and S1 nerve roots were identified bilaterally . The patient was noted to have severe foraminal stenosis bilaterally at the level of the L3, L4, and L5 neural foramen as well as moderate foraminal stenosis bi laterally at the level of the L2 and S1 neural foramen secondary to hypertrophied ligamentous tissue as well as facet arthropathy. The foraminal stenosis was especially prominent on the left at the lev el of the L3 and L5 neural foramen. The foraminal stenosis was noted particularly at the origin of the foramen and was much more prominent than what had been noted on the pre-operative radiographic ella ges. Utilizing various [place] rongeur s, generous foraminotomies were then accomplished bilaterally at the level of the L2, L3, L4, L5, and S1 neural foramen. Essentially, the various Kerrison rongeu rs were used to resect hypertrophied lig amentous tissue contributing to the foraminal stenosis bilaterally at the L2, L3, L4, L5, and S1 neural foramen. In addition, the various Kerrison rongeurs were used to undercut the roof of the neural foramen bilaterally at the L2, L3, L4, L5, and S1 vertebral segments. Ultimately upon completion of the laminectomy and foraminotomy aspects of the operative pro cedure, excellent decompression of the n eural elements was achieved at the L2, L3, L4, L5, and S1 vertebral segments. A [place] probe was noted to be easily passed out the neural foramen bilaterally at L2, L3, L4, L5, and S1. Once decompres huan of the neural elements had been achieved at the L2 through L5 vertebral segments, attention was then directed towards closing the surgical site. The surgical site was copiously irrigate d. Meticulous hemostasis was accomplished utilizing the bipolar cautery as well as the monopolar cautery. SurgiFlo was also used to facilitate hemostasis. A 7- mm flat ANA drain was then placed in the subfascial tissue plane and tunneled exteriorly through a separate stab incision. The surgical incision was then closed in multiple layers. Initially, the lumbar fascia layer was r e-approximated with interrupted 0 Vicryl suture. A second 7-mm flat ANA drain was subsequently placed in the subcutaneous tissue plane and tunneled exteriorly thr ough a separate stab incision. The deep dermal layer was then re-approximated with interrupted 2-0 Vicryl suture. The skin was re-approximated utilizing Dermabond. A sterile dressing was placed at th e drain exit sites. The patient was sub sequently turned supine onto a hospital bed. The patient was awakened from anesthesia. Upon regaining consciousness, the patient was noted to move her lower ext remities in a manner similar to her preo perative state. The patient was taken to recovery room for routine postoperative monitoring. At the conclusion of the operative procedure, all needle, sponge, and instrument counts were correct. Completed by: RILEY HALL MD Extracted from:Title: History and Physical Author: Riley Hall MD Date: 02/08/16 History and Physical Present Complaint: Left lower extremity radicular type pain, dysesthesias, and subjective weakness as well as associated mild low back pain. Past History Pertinent Surgeries: 1. Rectal abscess I&D - 2009 2. C4-C6 anterior discectomy and instrum ented interbody fusion (per Dr. Keron Thomas - 2012) 3. Right knee replacement (per Dr. Mosqueda - 2013) 4. Left knee replacement (per Dr. Mosqueda - 2014) 5. Laparotomy for colon tear 6. Tonsillectomy Pertinent Medical Illness: 1. HTN 2. Hypercholesterolemia 3. NIDDM 4. Peripheral neuropathy 5. GERD 6. Diverticulosis Current Medications: Refer to Medicatio n Reconciliation List for a complete list of medications. Allergies: No Known Drug Allergies Tobacco use: None Alcohol use: None Physical Examination General: Patient lying supine in a hospital bed in no acute distress. Neurologic: Awake, alert, and oriented x3. Speech is fluent. Pupils equal, round, and reactive to light. Extraoccular movements intact. Cranial nerves 2- 12 grossly intact bilaterally. Sensation is intact to light touch in upper and lowe r extremities bilaterally with the exception of diminished light touch perception in the left thigh. Strength: Deltoids: (R) 5/(L) 5 Biceps: (R) 5/(L) 5 Triceps: (R) 5/(L) 5 Wrist Extensors: (R) 5/(L) 5 Fire Extinguisher Technician Strength: (R) 5/(L) 5 Iliopsoas: (R) 5/(L) 4- Quadriceps: (R) 5/(L) 3 Tibialis Anterior: (R) 5/(L) 5 Extensor Hallucus Longus: (R) 5/(L) 5 Gastrocnemius: (R) 5/(L) 5 HEENT: Atraumatic, normocephalic craniu m. Eyes and ears symmetric. No drainage from the ears or nose. Inspection of the oral cavity reveals the oral mucosa to be normal. Neck: Supple. No carotid bruits auscultated. Cardiac: Regular rate and rhythm without murmur. Pulmonary: Lungs clear to auscultation. Gastrointestinal: Abdomen soft, non-ten hira, non-distended, with normal active bowel sounds. Musculoskeletal: No clubbing, cyanosis, or edema. Integument: No significant skin rashes or skin lesions on e xposed surfaces. Impression: L2-L5 stenosis/disc displacement. Treatment Plan: To OR today for L2-L5 d ecompressive laminectomies and bilateral foraminotomies. Extracted from:Title: Progress Note * 01/19/2016 [facility] Author: Jean Paul Angela MD Date: 01/18/16 Impression and Plan 1. Left lower extremity radiculopathy. Neurosurgery recommedning physical therapy and rehab for imprpving patients condition before attemtpoing surgery in 1-2 weeks. pt hence is awaiting rehab placement. 2. Left hip soft tissue edema: The ramo ent evaluated by orthopedic surgery. No acute recommendations made. symptomatic management. 3. Hypertension. The patient's blood p ressure is presently better controlled. Patient is on amlodipine, irbesartan, spironolactone and Coreg. Will continue current management. 4. Diabetes mellitus. Blood sugars much better controlled now.replaced 5. History of reported congestive heart failure. Echo resul ts still pending. 6. GI/DVT prophylaxis. Patient is on h eparin, which will be continued for now. Plan of Care No Data Provided for This Section Social History Social History Date Source Social History TypeResponse 01/11/2016 [facility] Alcohol Past Smoking Status Never smoker; Exposure to Tobacco Smoke None; Cigarette Smoking Last 365 Days No; Reg Smoking Cessation Counseling No Family History No Data Provided for This Section Advance Directives No Data Provided for This Section Functional Status No Data Provided for This Section
--- OUTSIDE RECORDS SUMMARY | 2019-12-13 13:00 | XMS REPORT | Continuity of Care Document ---
:1940 Author Organization [facility] t Address [address] [place] [address] Dr. [address]. [address] [place] [address] Care Team Providers Name Role Phone Sae Paz MD Primary Care Physician Joselito Quinones MD Attending Clinician Fidencio MUNOZ Attending Clinician Unavailable Provider Attending Clinician Jese Whyte Attending Clinician Junaid Angela Attending Clinician Peterson Drew Attending Clinician Gabbie Thomas Attending Clinician Jese Whyte Admitting Clinician Junaid Angela Admitting Clinician Peterson Drew Admitting Clinician Payers Payer Name Policy Type Policy Number Effective Date Expiration Source Date HUMANA xxxxxxxxx 2018 [place] MEDICAREHUMANA 00:00:00 [employer] MEDICARE PPO/PFFS/ERS [id number] Problems Condition Condition Condition Status Onset Resolution Last Treating Co mments Source Name Details Category Date Date Treatment Clinician Date Hypercalce Hypercalce Disease Active [place] y[place] hays lis 08 Methodi 00:00: st 00 Primary Primary Disease Active [place] hyperparat hyperparat 08 Me thodi hyroidism hyroidism 00:00: st 00 [address], Diagnosis Active 2016-08-23 Mem oria 74635 X3, 8-16 21:24:00 l CONNECTIVE 50530, 00:00: Herm robert [place] [address]90 X3, 00 D CONNECTIVE TISSUE AND D Active 02/01/2016 [facility] HERNIATED Diagnosis Active 2016-02-01 Memoria LUMBAR 01-10 22:00:00 l DISK S/P 00:00: Luke FALL WITH HERNIATED 00 LT H LUMBAR DISK S/P FALL WITH LT H Active 01/11/2016 [facility] HERNIATED Diagnosis [facility]01[facility]11 [facility] LUMBAR 01-09 05:29:00 l DISK S/P 00:00: Luke FALL WITH HERNIATED 00 LEFT LUMBAR DISK S/P FALL WITH LEFT Active 01/10/2016 [facility] 723.4 - Diagnosis Active 2013-12-02 Wi moria BRACHIAL - 07:22:00 l NEURIT 723.4 - 00:01: [place] BRACHIAL 00 NEURIT Active 09/17/2013 PHYLLIS Butler Cervical Problem Active 2016-02-17 Mem oria spondylosi 10-17 00:32:37 l s with Cervical 00:00: Richard thompson radiculopa spondylosi 00 thy s with (disorder) radiculopa thy (disorder) Active 10/17/2012 Problem 02/17/2016 Data migrated from [facility] on 02/09/15. [facility] CERVICAL Diagnosis Active 2012-10-07 emoria RADICULITI 09-06 13:29:00 l S, CERVICAL 00:00: Richard thompson CERVICAL RADICULITI 00 DISC DISP S, CERVICAL DISC DISP Active 09/06/2012 [facility] Diabetes Problem Resolve 2013-03-21 Wi moria mellitus d 20:07:44 l Diabetes Richard n mellitus Resolved Problem 03/21/2013 [facility] PHYLLIS Butler GERD - Problem Resolve 2013-03-21 Boy tadeo Gastro-eso d 20:07:44 l phageal GERD - Luke reflux Gastro-eso disease phageal reflux disease Resolved Problem 03/21/2013 [facility] PHYLLIS Butler HLD - Problem Resolve 2013-03-21 Boy tadeo Hyperlipid d 20:07:44 l emia HLD - Luke Hyperlipid emia Resolved Problem 03/21/2013 [facility] PHYLLIS Butler HTN - Problem Resolve 2013-03-21 Boy tadeo Hypertensi d 20:07:44 l on HTN - Luke Hypertensi on Resolved Problem 03/21/2013 [facility], PHYLLIS [place] Neuropathy Problem Resolve 2013-03-21 Memoria d 20:07:44 l Luke Neuropathy Resolved Problem 03/21/2013 [facility], KATIANick Luke Diabetes Problem Active 2016-02-17 Mem oria mellitus 00:32:37 l (disorder) Diabetes He rmann mellitus (disorder) Active Problem 02/17/2016 PHYLLIS Butler,[facility] Displaceme Problem Active 2016-02-17 M emoria nt of 00:32:37 l lumbar Luke interverte Displaceme bral disc nt 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 lumbar myelopathy interverte (disorder) bral disc without myelopathy (disorder) Active Problem 02/17/2016 [facility] Gastroesop Problem Active 2016-02-17 M emoria hageal 00:32:37 l reflux [place] disease Gastroesop (disorder) hageal reflux disease (disorder) Active Problem 02/17/2016 PHYLLIS Butler,[facility] Hyperlipid Problem Active 2016-02-17 M emoria emia 00:32:37 l (disorder) Richard n Hyperlipid emia (disorder) Active Problem 02/17/2016 PHYLLIS Butler,[facility] Hypertensi Problem Active 2016-02-17 M emoria ve 00:32:37 l disorder, Luke systemic Hypertensi arterial ve (disorder) disorder, systemic arterial (disorder) Active Problem 02/17/2016 PHYLLIS Butler,[facility] Low back Problem Active 2016-02-17 Mem oria pain 00:32:37 l (disorder) Low back He rmann pain (disorder) Active Problem 02/17/2016 [facility] Lumbar Problem Active 2016-02-17 Memor ia radiculopa 00:32:37 l thy Lumbar Luke (disorder) radiculopa thy (disorder) Active Problem 02/17/2016 [facility] Lumbar Problem Active 2016-02-17 Memor ia spondylosi 00:32:37 l s Lumbar Luke (disorder) spondylosi s (disorder) Active Problem 02/17/2016 [facility] Neuropathy Problem Active 2016-02-17 M emoria (disorder) 00:32:37 l Luke Neuropathy (disorder) Active Problem 02/17/2016 OPID Luke,[facility] Obesity Problem Active 2016-02-17 Boy tadeo (disorder) 00:32:37 l Obesity [place] (disorder) Active Problem 02/17/2016 [facility] Spinal Problem Active 2016-02-17 Memor ia stenosis 00:32:37 l of lumbar Spinal Anitra nn region stenosis (disorder) of lumbar region (disorder) Active Problem 02/17/2016 [facility] Spondyloli Problem Active 2016-02-17 M emoria sthesis 00:32:37 l (disorder) Richard n Spondyloli sthesis (disorder) Active Problem 02/17/2016 [facility] Interverte Problem Active 2016-02-17 M emoria bral disc 00:32:37 l disorder Luke (disorder) Interverte bral disc disorder (disorder) Active Problem 02/17/2016 [facility] Interverte Problem Active 2016-02-17 M emoria bral disc 00:32:37 l stenosis [place] of neural Interverte canal bral disc (disorder) stenosis of neural canal (disorder) Active Problem 02/17/2016 [facility] BRACHIAL Diagnosis Active 2012-10-07 M emoria NEURITIS 13:29:00 l NOS BRACHIAL Richard n NEURITIS NOS Active [facility] CERV DISC Diagnosis Active 2012-10-07 Memoria DIS W 13:29:00 l MYELOPAT CERV [place] DISC DIS W MYELOPAT Active [facility] ILLNESS, Diagnosis Active 2016-08-23 M emoria UNSPECIFIE 21:24:00 l D ILLNESS, Richard n UNSPECIFIE D Active [facility] Allergies, Adverse Reactions, Alerts Allergy Allergy Status Severity Reaction(s) Onset Inactive Treating Comm ents Source Name Type Date Date Clinician NKFA NKFA Active Dilmaoria l Luke Social History Social Habit Start Date Stop Date Quantity Comments Source Sex Assigned At [place] M ethodist Exposure to Not sure [place] Metho dist SARS-CoV-2 (event) Alcohol intake 2019-06-03 2019-06-03 Current drinker [place] [employer] 00:00:00 00:00:00 of alcohol (finding) Social History 2016-01-11 2016-01-11 [facility] Vanessa burger 22:35:39 22:35:39 Smoking Status Start Date Stop Date Source Never smoker Rayshawn Shafferis t Medications Ordered Filled Start Stop Current Ordering Indication Dosage Frequency Signature Comments Components Source Medication Medication Date Date Medication? Clinician (SIG) Name Name dulaglutide Yes Inject [place] (Trulicity) 12-02 under the Met hodi 1.5 mg/0.5 10:45: skin. st mL pen 28 injector insulin Yes Inject Rayshawn degludec 12-02 under the Method i (TRESIBA 10:43: skin. st U-100 24 INSULIN SUBQ) cinacalcet 2020- Yes 30mg QD Take 1 [place] (SENSIPAR) 12-02 09-10 tablet (30 Me thodi 30 MG 00:00: 23:59 mg total) st tablet 00 :00 by mouth daily. amLODIPine 2018-06 Yes 5mg QD Take 5 mg [place] (NORVASC) 5 2-17 by mouth Meth jesus mg tablet 11:20: daily. st 43 aspirin 2018-06 Yes 81mg QD Take 81 mg [place] (ECOTRIN) 2-17 by mouth Method i 81 MG 11:20: daily. st enteric 43 coated tablet irbesartan 2018-06 Yes 300mg QD Take 300 [place] (AVAPRO) 2-17 mg by Methodi 300 MG 11:20: mouth st tablet 43 nightly. clonIDINE 2018-06 Yes .1mg Q.5D Take 0.1 [place] (CATAPRES) 2-17 mg by Methodi 0.1 MG 11:20: mouth 2 st tablet 43 (two) times a day. As needed spironolact 2018-06 Yes 25mg QD Take 25 mg Tabares one 2-17 by mouth Methodi (ALDACTONE) 11:20: daily. st 25 MG 43 tablet furosemide 2018-06 Yes 20mg Q.5D Take 20 mg [place] (LASIX) 20 2-17 by mouth 2 Met hodi mg tablet 11:20: (two) st 43 times a day. As needed polyethylen 2018-06 Yes 17g QD Take 17 g [place] e glycol 2-17 by mouth Methodi (MIRALAX) 11:20: daily. As st 17 gram 43 needed packet carvedilol 2018-06 Yes 25mg Q.5D Take 25 mg [place] (COREG) 25 2-17 by mouth 2 Met hodi MG tablet 11:20: (two) st 43 times a day with meals. cholecalcif 2018-06 Yes 1000U QD Take 1,000 Tabares loren, 2-17 Units by Methodi vitamin D3, 11:20: mouth st (VITAMIN 43 daily. D3) 1,000 unit capsule pitavastati 2018-06 Yes 2mg QD Take 2 mg [place] n calcium 2-17 by mouth Method i (LIVALO) 1 11:20: nightly. st mg tablet 43 cinacalcet 2018-06 No Hypercalcem 30mg Q.5D Take 1 Tabares (SENSIPAR) 2-17 03-16 ia tablet (30 Me thodi 30 MG 00:00: 23:59 mg total) st tablet 00 :00 by mouth 2 (two) times a day for 90 days. cinacalcet 2018-06 No 30mg Q.5D TAKE 1 [place] (SENSIPAR) 1-11 12-17 TABLET (30 Me thodi 30 MG 00:00: 00:00 MG TOTAL) st tablet 00 :00 BY MOUTH 2 (TWO) TIMES A DAY FOR 90 DAYS. cinacalcet 2018- No 30mg Q.5D Take 1 [place] (SENSIPAR) 8-06 11-11 tablet (30 Me thodi 30 MG 00:00: 00:00 mg total) st tablet 00 :00 by mouth 2 (two) times a day for 90 days. gabapentin Yes TAKE 1 [place] (NEURONTIN) 6-25 CAPSULE BY Me thodi 300 mg 00:00: MOUTH st capsule 00 THREE TIMES A DAY ACCU-CHEK 2019-0 Yes Q.5D 2 (two) [place] CORTEZ PLUS 6-18 times a Method i TEST STRP 00:00: day. for st strip test 00 testing strips ACCU-CHEK Yes USE [place] MULTICLIX 6-18 DIRECTED Method i LANCET 00:00: TWICE A st lancets 00 DAY, DIAGNOSIS E11.9 TRADJENTA 5 Yes 5mg QD Take 5 mg [place] mg tablet 6-13 by mouth Method i 00:00: daily. st 00 VITAMIN D2 Yes TAKE ONE Kevin ston 50,000 unit 6-10 CAPSULE BY Wi thodi capsule 00:00: MOUTH ONE st 00 TIME PER WEEK amLODIPine 2018- No 5mg QD Take 5 mg [place] (NORVASC) 6-03 08-06 by mouth Metho di 10 mg 00:00: 00:[address] tablet 00 :00 metFORMIN Yes TAKE 1 [place] XR 5-26 TABLET BY Methodi (GLUCOPHAGE 00:00: MOUTH st -XR) 500 mg 00 EVERY DAY 24 hr IN THE tablet EVENING WITH DINNER SOLIQUA Yes INJECT Tabares 100/33 100 5-13 UNDER THE Meth jesus unit-33 00:00: SKIN 30 st mcg/mL 00 UNITS insulin pen EVERY MORNING AND INCREASE TO 60 DIRECTED Lipitor No Notes: Memoria 8-31 (Same As: l 02:00: Lipitor) [place] 00 Acetaminoph Yes 1 tab, PO, Memoria en 325 MG / 8-29 Q6H, PRN l Hydrocodone 12:49: pain, # 90 Luke Bitartrate 00 tab, 0 10 MG Oral Refill(s), Tablet given to [[place] patient [id number]] morphine 15 Yes 15 mg = 1 M emoria mg oral 8-29 tab, PO, l tablet, 12:49: Q12H, # 60 Herm robert extended 00 tab, 0 release Refill(s), given to patient bisacodyl 5 Yes 5 mg = 1 Me moria mg oral 8-29 tab, PO, l enteric 12:49: TID, PRN Richard n coated 00 Constipati tablet on, 0 Refill(s) baclofen 10 Yes 5 mg = 0.5 Memoria mg oral 8-29 tab, PO, l tablet 12:49: TID, PRN [place] 00 as needed for muscle spasm, # 45 tab, 0 Refill(s) MS Contin No Notes: Do Mem oria 8 not crush l 02:00: (Same Luke as:[employer] h SR, MS Contin) Lipitor No Notes: Memoria 8 (Same As: l 02:00: Lipitor) [place] 00 Tylenol No Notes: Do Memor ia 8 not exceed l 23:00: 4 gm/day. [place] 00 (Same as: Tylenol) Bisacodyl No Notes: Memori a 02-10 (Same As: l 22:47: Dulcolax, Luke 00 Correctol) (Do Not Crush) "Do Not Crush" Docusate No Notes: Memoria 02-10 (Same as: l 22:00: Colace) (Do Not Crush) Simethicone No Notes: Boy tadeo 02-10 (Same as: l 21:04: Mylicon) Bisacodyl No Notes: Memori a 02-10 (Same As: l 21:04: Dulcolax, Luke Bisco-Lax) Baclofen No Notes: Memoria 02-10 (Same As: l 14:00: Lioresal) Dilaudid No Notes: Memoria 02-09 (Same as: l 22:54: Dilaudid) Acetaminoph No Notes: Boy tadeo en 325 MG / 02-09 (Same as: l Hydrocodone 22:52: [place] Anitra nn Bitartrate 00 325/5) Do 5 MG Oral not exceed Tablet 4gm/day of [[place] acetaminop 5/325] hen. tradjenta No Me marvel moria 02-08 5 mg, 1 l 20:00: tab, Drug form: MISC, Route: PO, Daily, 02/09/16 15:00:00 CDT, Duration: 30 day, Stop date: 03/10/16 9:00:00 CDT Rosuvastati Yes 2.5 mg, Mem oria n calcium 5 02-08 PO, l MG Oral 16:18: Bedtime, # Herm robert Tablet 30 tab, 0 [Crestor] Refill(s) Sodium No 25 mL, Memoria Chloride 02-08 Route: IV, l 0.9% IV 15:15: Start date: 02/09/16 10:15:00 CDT, Duration: 30 day, Stop date: 03/10/16 10:14:00 CDT, PRN Line Flush BD Normal No Notes: Memori a Saline 02-08 (Same as: l Flush 15:15: BD Posiflush) Spironolact No Notes: Boy tadeo one 8-24 (Same As: l 14:00: Aldactone) irbesartan No Notes: Memor ia 8-24 (Same l 14:00: as:Avapro) Tradjenta No 5 mg, Memoria 8-24 Route: PO, l 14:00: Drug form: TAB, Daily, Dosing Weight 89.545, kg, Start date: 02/09/16 9:00:00 CDT Furosemide No Notes: Memor ia 20 MG Oral 8-24 (Same as: l Tablet 14:00: Lasix) May cause GI upset. Give with food or milk. Vitamin D3 No Notes: Memor ia 8-24 Same as : l 14:00: Vitamin D3 Amlodipine No Notes: Memor ia 8-24 (Same as: l 14:00: Norvasc) Miralax No Notes: Memoria 8-24 Dissolve l 14:00: in 8 oz of water or juice. (Same as: Miralax) Insulin, No Notes: Memoria Aspart, 8-24 Roll in l Human 06:52: palms of hands gently; Do not shake vigorously . (Same as: NovoLOG) "single patient use only" WASTE: F/P - Black; E - Municipal Trash Bin Stable for 28 days at room temperatur e. Expires in days from ____Date Glucagon No 1 mg, Memoria 8-24 Route: IM, l 06:52: Drug form: PDR/INJ, PRN, Dosing Weight 89.545, kg, PRN Blood Glucose Results, Start date: 02/09/16 1:52:00 CDT, Duration: 30 day, Stop date: 03/10/16 1:51:00 CDT Dextrose No 25 gm, 50 Boy tadeo 50% Syringe 8-24 mL, Route: l 06:52: IVP, Drug [place] 00 Form: INJ, Dosing Weight 89.545, kg, PRN, PRN Blood Glucose Results, Start date: 02/09/16 1:52:00 CDT, Duration: 30 day, Stop date: 03/10/16 1:51:00 CDT Crestor No Route: PO, Boy tadeo 02-08 Drug form: l 02:00: TAB, Luke 00 Bedtime, Dosing Weight 89.545, kg, Start date: 02/08/16 21:00:00 CDT, Duration: 30 day, Stop date: 03/08/16 21:00:00 CDT Insulin No Notes: Memoria Glargine 02-08 Same as l 100 UNT/ML 02:00: Lantus Anitra nn Injectable 00 Solostar Solution PEN Do [Lantus] not hold insulin without contacting prescriber "single patient use only" WASTE: F/P - Black; E - Municipal Trash Bin Stable for 28 days at room temperatur e. Expires in days from ____Date carvedilol No Notes: Memor ia 02-08 Give with l 02:00: food. [place] 00 (Same As: Coreg) Docusate Yes 100 mg = 1 Mem oria Sodium 100 02-07 cap, PO, l MG Oral 23:47: BID, 0 Luke Capsule 00 Refill(s) [Colace] Linagliptin No 5 mg = 1 Me moria 5 MG Oral 02-07 tab, PO, l Tablet 23:47: Daily, 0 Luke [Tradjenta] 00 Refill(s) 3 ML Yes 50 units, Memoria Insulin 02-07 SUB-Q, l Glargine 23:47: Bedtime, 0 Her kowalski 100 UNT/ML 00 Refill(s) Prefilled Syringe [Lantus] glimepiride Yes 4 mg, PO, M emoria 8 Daily, 0 l 23:47: Refill(s) Luke 00 Clonidine No 0.1 mg = 1 Me moria Hydrochlori - tab, PO, l de 0.1 MG 23:40: PRN [place] Oral Tablet 00 Hypertensi on, 0 Refill(s) Ancef + No Notes: Memoria sodium 8-23 (Same As: l chloride 23:00: Ancef, Luke 0.9% INJ 00 Kefzol) 100 mL MEDICATION WASTE Product Size: 1000 mg Product Wasted: ___ mg Docusate No Notes: Memoria Sodium 100 8-23 (Same as: l MG Oral 22:00: Colace) Luke Capsule 00 (Do Not [Colace] Crush) Ofirmev No 1,000 mg, Memor ia 02-07 Route: IV, l 19:25: ONCE, Luke 00 Dosing Weight 89, kg, Start date: 02/08/16 14:25:00 CDT, Stop date: 02/08/16 14:25:00 CDT Ondansetron No Notes: Boy tadeo 02-07 (Same as: l 18:22: Zofran) Luke 00 MEDICATION WASTE Product Size: 4 mg Product Wasted: ___ mg Flumazenil No Notes: Memor ia - (Same as: l 18:22: Romazicon) [place] 00 Naloxone No Notes: Memoria 8 Same as l 18:22: Narcan Morphine No Notes: Memoria - (Same l 18:22: as:MORPhin Luke 00 e Sulfate) Sodium No 1,000 mL, Memori a Chloride 02-07 Rate: 125 l 0.154 18:22: ml/hr, [place] MEQ/ML 00 Infuse Injectable over: 8 Solution hr, Route: IV, Dosing Weight 89.545 kg, Total Volume: 1,000, Start date: 02/08/16 13:22:00 CDT, Duration: 30 day, Stop date: 03/09/16 13:21:00 CDT Morphine No Notes: Memoria 8-23 Dose: l 18:00: Luke Delay: Basal rate: 4hr limit: (Same as:Norma lamb) Naloxone No Notes: Memoria 8-23 Same as l 17:53: Narcan Acetaminoph No Notes: Do M emoria en 325 MG / 02-07 not exceed l Hydrocodone 17:53: 4gm/day of Luke Bitartrate acetaminop 10 MG Oral hen. Tablet (Same as: [[place] 10/325] 325/10) Zofran No Notes: Memoria 02-07 (Same as: l 17:53: Zofran) MEDICATION WASTE Product Size: 4 mg Product Wasted: ___ mg Robaxin No Notes: Memoria 02-07 (Same l 17:52: as:Robaxin ) Lactated No 1,000 mL, Boy tadeo Ringers 02-07 Rate: 75 l 1,000 mL 17:52: ml/hr, Infuse over: 13.3 hr, Route: IV, Dosing Weight 89.545 kg, Total Volume: 1,000, Start date: 02/08/16 12:52:00 CDT, Duration: 30 day, Stop date: 03/09/16 12:51:00 CDT Flexeril No Notes: Memoria 02-07 (Same As: l 17:52: Flexeril) Diphenhydra No Notes: Boy tadeo mine 02-07 (Same as: l 17:52: Benadryl) phenol No Notes: Memoria 02-07 Chlorasept l 17:52: ic [place] (Same as: Chlorasept ic, Sore Throat [place]) WASTE: F/P - Black; E - Municipal Trash Bin ceFAZolin No Notes: Memori a 02-07 Same as: l 03:00: Ancef carvedilol Yes 12.5 mg = Me moria 12.5 mg 01-18 1 tab, PO, l oral tablet 18:26: Q12H, 0 Her Refill(s) Acetaminoph No Notes: Boy tadeo en 325 MG / 01-17 Same as l Hydrocodone 14:32: [place] Anitra nn Bitartrate 00 325-7.5mg 7.5 MG Oral Do not Tablet exceed [[place] 4gm/day of 7.5/325] acetaminop hen. sodium No 15 mmol, 5 Memor ia phosphate + 8-01 mL, Route: l sodium 21:42: IVPB, PRN, Anitra nn chloride 00 Dosing 0.9% INJ Weight 250 mL 97.983, kg, PRN Abnormal Lab Result, Start date: 01/17/16 16:42:00 CDT, Stop date: 02/16/16 16:41:00 CDT heparin No Notes: Memoria sodium, 01-15 porcine l porcine 02:00: heparin Luke 2500 UNT/ML 00 Injectable Solution gabapentin No Notes: Memor ia 300 MG Oral 01-15 (Same as: l Capsule 00:22: Neurontin) Herm robert Insulin, No Notes: Memoria Aspart, 01-13 Roll in l Human 21:30: palms of [place] hands gently; Do not shake vigorously . (Same as: NovoLOG) "single patient use only" WASTE: F/P - Black; E - [place] Trash Bin Stable for 28 days at room temperatur e. Expires in days from ____Date Hydralazine No Notes: Boy tadeo 01-13 (Same as: l 19:44: Apresoline ) Push over 5 minutes Ativan No Notes: Memoria 01-12 (Same as: l 20:06: Ativan) Luke Acetaminoph No 1 tab, Boy tadeo en 325 MG / 01-12 Route: PO, l Hydrocodone 20:05: Drug Form: Luke Bitartrate 00 TAB, 10 MG Oral Dosing Tablet Weight [[place] 97.983, 10/325] kg, Q4H, Start date: 01/13/16 15:05:00 CDT, Stop date: 02/12/16 16:00:00 CDT Miralax No Notes: Memoria 01-12 Dissolve l 14:11: in 8 oz of Luke water or juice. (Same as: Miralax) Lorazepam No 0.5 mg, Memor ia 01-11 Route: l 15:44: IVP, Drug Luke 00 form: INJ, ONCE, Dosing Weight 97.983, kg, PRN Anxiety, Priority: NOW, Start date: 01/12/16 10:44:00 CDT Tradjenta No 5 mg, Memoria 01-11 Route: PO, l 14:00: Drug form: [place] 00 TAB, Daily, Dosing Weight 97.983, kg, Start date: 01/12/16 9:00:00 CDT irbesartan No Notes: Memor ia 7-27 (Same l 14:00: as:Avapro) Luke Furosemide No Notes: Memor ia 20 MG Oral 7-27 (Same as: l Tablet 14:00: Lasix) May cause GI upset. Give with food or milk. glimepiride No Notes: Boy tadeo 7- (Same as: l 14:00: Amaryl) Luke 00 Tradjenta 5 No Uriela M emoria mg 7-27 5 mg l (Patient's 14:00: (Patient's H ermann own 00 own medicine) medicine), 1 tab, Drug form: MISC, Route: PO, Daily, 01/12/16 9:00:00 CDT, Duration: 30 day, Stop date: 02/10/16 9:00:00 CDT Aspirin 81 No Notes: Do Me moria MG Enteric - not crush l Coated 14:00: or chew. Luke Tablet (Same As: Ecotrin) Amlodipine No Notes: Memor ia - (Same as: l 14:00: Norvasc) Docusate No Notes: Memoria 7- (Same as: l 14:00: Colace) Luke (Do Not Crush) Spironolact No Notes: Boy tadeo one - (Same As: l 14:00: Aldactone) Ativan No Notes: Memoria 7-27 (Same as: l 13:54: Ativan) Sodium No 25 mL, Memoria Chloride 01-11 Route: IV, l 0.9% IV 13:19: Start date: 01/12/16 8:19:00 CDT, Duration: 30 day, Stop date: 02/11/16 8:18:00 CDT, PRN Line Flush BD Normal No Notes: Jody a Saline 01-11 (Same as: l Flush 13:19: BD Posiflush) Insulin, No Notes: Dilmaoria Aspart, 01-11 Roll in l Human 03:38: palms of hands gently; Do not shake vigorously . (Same as: NovoLOG) "single patient use only" WASTE: F/P - Black; E - Municipal Trash Bin Stable for 28 days at room temperatur e. Expires in days from ____Date Dextrose No 12.5 gm, Memor ia 50% Syringe 01-11 25 mL, l 03:38: Route: IVP, Drug Form: INJ, Dosing Weight 97.983, kg, PRN, PRN Blood Glucose Results, Start date: 01/11/16 22:38:00 CDT, Duration: 30 day, Stop date: 02/10/16 22:37:00 CDT Glucagon No 1 mg, Memoria 01-11 Route: IM, l 03:38: Drug form: PDR/INJ, PRN, Dosing Weight 97.983, kg, PRN Blood Glucose Results, Start date: 01/11/16 22:38:00 CDT, Duration: 30 day, Stop date: 02/10/16 22:37:00 CDT Lipitor No Notes: Memoria 01-11 (Same As: l 02:38: Lipitor) [place] 00 Lantus No Notes: Memoria 01-11 Same as l 02:00: Lantus Solostar PEN Do not hold insulin without contacting prescriber "single patient use only" WASTE: F/P - Black; E - Municipal Trash Bin Stable for 28 days at room temperatur e. Expires in days from ____Date carvedilol No Notes: Memor ia 01-11 Give with l 02:00: food. Luke 00 (Same As: Coreg) Crestor No Route: PO, Boy tadeo 01-11 Drug form: l 02:00: TAB, [place] Bedtime, Dosing Weight 97.983, kg, Start date: 01/11/16 21:00:00 CDT, Duration: 30 day, Stop date: 02/09/16 21:00:00 CDT Acetaminoph No Notes: Do M emoria en 325 MG / 01-10 not exceed l Hydrocodone 23:00: 4gm/day of [place] Bitartrate 00 acetaminop 10 MG Oral hen. Tablet (Same as: [[place] 10/325] 325/10) Enoxaparin No Notes: Memor ia - (Same as: l 23:00: Lovenox) Clonidine No Notes: Memori a Hydrochlori 01-10 (Same As: l de 0.1 MG 22:56: Catapres) Her kowalski Oral Tablet 00 Sodium No 1,000 mL, Memori a Chloride 01-10 Rate: 45 l 0.154 22:53: ml/hr, Luke MEQ/ML 00 Infuse Injectable over: 22.2 Solution hr, Route: IV, Dosing Weight 97.983 kg, Total Volume: 1,000, Start date: 01/11/16 17:53:00 CDT, Duration: 30 day, Stop date: 02/10/16 17:52:00 CDT Saline No Notes: Memoria Flush 0.9% 01-10 (Same as: l 22:53: BD Posiflush) Morphine No Notes: Memoria - (Same l 22:53: as:MORPhin e Sulfate) Ondansetron No Notes: Boy tadeo - (Same as: l 22:53: Zofran) MEDICATION WASTE Product Size: 4 mg Product Wasted: ___ mg Acetaminoph No 100.4 F, M emoria en - Start l 22:53: date: [place] 00 01/11/16 17:53:00 CDT, Duration: 30 day, Stop date: 02/10/16 17:52:00 CDT irbesartan Yes 300 mg = 1 M emoria 300 mg oral - tab, PO, l tablet 22:27: Daily, # [place] 00 30 tab, 0 Refill(s) Co Q-10 100 Yes 200 mg = 2 Memoria mg oral - cap, PO, l capsule 22:21: Daily, 0 Richard n 00 Refill(s) Aspirin 81 Yes 81 mg = 1 Me moria MG Enteric 01-10 tab, PO, l Coated 22:21: Daily, # Luke Tablet 00 90 tab, 3 Refill(s) Vitamin D3 Yes 2,000 Memori a 01-10 IntlUnit, l 22:21: PO, Daily, Luke 00 0 Refill(s) Rosuvastati Yes See Memori a n calcium 5 01-10 Instructio l MG Oral 22:21: ns, 1 tab Anitra nn Tablet 00 PO Bedtime [Crestor] tuesdays and fridays, 0 Refill(s) spironolact Yes 25 mg = 1 M emoria one 25 mg 01-10 tab, PO, l oral tablet 22:21: Daily, # He rmann 00 30 tab, 3 Refill(s) Docusate Yes 300 mg = 3 Mem oria Sodium 100 - cap, PO, l MG Oral 22:21: Daily, 0 Richard n Capsule 00 Refill(s) [Colace] Furosemide Yes 20 mg = 1 Me moria 20 MG Oral - tab, PO, l Tablet 22:21: Daily, # Luke 00 30 tab, 0 Refill(s) Linagliptin Yes 5 mg = 1 Me moria 5 MG Oral - tab, PO, l Tablet 22:13: Daily, # Troy [Tradjenta] 00 30 tab, 3 Refill(s) Acetaminoph Yes 2 tabs, Mem oria en 325 MG / - PO, Q6H, 0 l Hydrocodone 22:01: Refill(s) H ermann Bitartrate 00 10 MG Oral Tablet [[place] 10/325] Amlodipine Yes 10 mg, PO, M emoria 01-10 Daily, 0 l 22:01: Refill(s) [place] 00 Pepcid 20 Yes Rigoberto 20 mg, 1 Boy tadeo mg oral 4-21 Skyler tab, PO, l tablet 13:44: Meiner BID, 60 Richard n 03 tab, Substituti on Allowed [place] Yes Rigoberto 1-2 tab, Memoria 10/325 oral 4-21 Skyler PO, Q4-6H, l tablet 13:43: Meiner PRN, 90 Richard n 05 tab, Pain, Substituti on Allowed, Maintenanc e Flexeril 10 Yes Rigoberto 10 mg, 1 Me moria mg oral 4-21 Skyler tab, PO, l tablet 13:42: Meiner TID, PRN, Herm robert 53 30 tab, for spasm, Substituti on Allowed, TAB Medrol Yes Rigoberto As Memoria Dosepak 4 4-21 Skyler directed l mg Tablet 13:42: Meiner on package Luke 51 instructio ns, PO, Daily, Take with or without food, 1 Pack, Substituti on AllowedTak e with or without food Colace 100 Yes Rigoberto 100 mg, 1 Me moria mg oral 4-21 Skyler cap, PO, l capsule 13:42: Meiner BID, PRN, Her kowalski 48 20 cap, Constipati on, Substituti on Allowed, CAP diphenhydrA No Bob 25 mg, 1 Memoria MINE 25 mg 4-21 Rodgers cap, l oral 01:00: Mendoza Route: PO, Richard n tablet, 00 Drug form: disintegrat CAP, Q8H, ing Dosing Weight 91.818, kg, PRN Anxiety, Start date: 10/05/12 20:00:00, Duration: 30 day, Stop date: 11/04/12 19:59:00 Lantus No Estela 10 unit, Memor ia 4-20 Young 0.1 mL, l 23:46: Route: Luke 00 SUB-Q, Drug form: INJ, ONCE, Dosing Weight 91.818, kg, Start date: 10/05/12 18:46:00, Stop date: 10/05/12 18:46:00 insulin No Estela 3 unit, Memor ia aspart 4-20 Young 0.03 mL, l 22:13: Route: Luke 00 SUB-Q, Drug form: SOLN, TID-Before Meals, Dosing Weight 91.818, kg, PRN Blood Glucose Results, Start date: 10/05/12 17:13:00, Duration: 30 day, Stop date: 11/04/12 17:12:00 glucagon 2012-0 No Estela 1 mg, Memori a 4-20 Young Route: IM, l 22:13: Drug form: [place] 00 PDR/INJ, PRN, Dosing Weight 91.818, kg, PRN Blood Glucose Results, Start date: 10/05/12 17:13:00, Duration: 30 day, Stop date: 11/04/12 17:12:00 Dextrose 2012-0 No Estela 12.5 gm, Mem oria 50% Syringe 4-20 Young 25 mL, l 22:13: Route: IVP, Drug Form: INJ, Dosing Weight 91.818, kg, PRN, PRN Blood Glucose Results, Start date: 10/05/12 17:13:00, Duration: 30 day, Stop date: 11/04/12 17:12:00 insulin 2012-0 No Estela 5 unit, Memor ia aspart 4-20 Young 0.05 mL, l 16:30: Route: SUB-Q, Drug form: SOLN, TID-Before Meals, Dosing Weight 91.818, kg, Start date: 10/05/12 11:30:00, Duration: 30 day, Stop date: 11/04/12 7:30:00 Ativan 2012-0 No Rigoberto 1 mg, 1 Memoria 4-20 Skyler tab, l 15:38: Meiner Route: PO, Anitra nn Drug form: TAB, Bedtime, Dosing Weight 91.818, kg, PRN Insomnia, Start date: 10/05/12 10:38:00, Duration: 30 day, Stop date: 11/04/12 10:37:00 Valium 2012-0 No Dorothy 5 mg, 1 Memori a 4-20 Dionisio tab, l 09:41: Route: PO, [place] 00 Drug form: TAB, ONCE, Dosing Weight 91.818, kg, PRN Anxiety, Start date: 10/05/12 4:41:00, Stop date: 11/04/12 4:40:00 dexamethaso No Dorothy 4 mg, 1 M emoria ne 4-20 Dionisio mL, Route: l 05:00: IVP, Drug form: INJ, Q6H, Dosing Weight 91.818, kg, Start date: 10/05/12 0:00:00, Duration: 30 day, Stop date: 11/03/12 18:00:00 heparin 2012- No [facility] 5,000 Mem oria 4-20 n Deniz unit, 1 l 05:00: mL, Route: Luke 00 SUB-Q, Drug form: INJ, Q8H, Dosing Weight 91.818, kg, Start date: 10/05/12 0:00:00, Duration: 30 day, Stop date: 11/03/12 16:00:00 famotidine No Dorothy 20 mg, 1 M emoria 4-20 Dionisio tab, l 02:00: Route: PO, Drug form: TAB, BID, Dosing Weight 91.818, kg, Start date: 10/04/12 21:00:00, Duration: 30 day, Stop date: 11/03/12 9:00:00 Insulin No Estela 12 unit, Boy tadeo regular 4-20 Young 0.12 mL, l 00:54: Route: SUB-Q, Drug form: SOLN, TID-Before Meals, Dosing Weight 91.818, kg, PRN Blood Glucose Results, Start date: 10/04/12 19:54:00, Duration: 30 day, Stop date: 11/03/12 19:53:00 glucagon 2012- No Petra 1 mg, Mem oria 4-20 Carmen Route: IM, l 00:54: Grazyna Drug form: Richard n 00 Law PDR/INJ, PRN, Dosing Weight 91.818, kg, PRN Blood Glucose Results, Start date: 10/04/12 19:54:00, Duration: 30 day, Stop date: 11/03/12 19:53:00 Dextrose No Petra 25 gm, 50 Memoria 50% Syringe 4-20 Carmen mL, Route: l 00:54: Grazyna IVP, Drug Luke 00 Law Form: INJ, Dosing Weight 91.818, kg, PRN, PRN Blood Glucose Results, Start date: 10/04/12 19:54:00, Duration: 30 day, Stop date: 11/03/12 19:53:00 dexamethaso 2012- No Dorothy 10 mg, 1 Memoria ne + Sodium 4-20 Dionisio mL, Route: l Chloride 00:14: IVP, Drug Herm robert 0.9% IV 50 00 form: INJ, mL ONCE, Dosing Weight 91.818, kg, Start date: 10/04/12 19:14:00, Stop date: 10/04/12 19:14:00 magnesium 2012-0 No Estela 2 gm, 50 Me moria sulfate 4-19 Young mL, Route: l 21:00: IVPB, Drug Luke form: INJ, Q2H, Dosing Weight 91.818, kg, Total dose = 4 gm, Start date: 10/04/12 16:00:00, Duration: 2 doses or times, Stop date: 10/04/12 18:00:00 Ativan 2012- No Maisha L 1 mg, 0.5 M emoria 4-19 Michael mL, Route: l 16:52: IVP, Drug [place] form: INJ, ONCE, Dosing Weight 91.818, kg, PRN Anxiety, Start date: 10/04/12 11:52:00 acetaminoph 2012- No Maisha L 1 tab, Memoria en-hydrocod 4-19 Michael Route: PO, l one 325 16:52: Drug Form: Herm robert mg-10 mg 00 TAB, oral tablet Dosing Weight 91.818, kg, Q4H, PRN Pain Score 4-6, Start date: 10/04/12 11:52:00, Duration: 30 day, Stop date: 11/03/12 11:51:00 hydrochloro 2012-0 No Leah Yen 25 mg, M emoria thiazide 4-19 Thi Mabry Route: PO, l 14:00: Drug form: Luke 00 TAB, Daily, Dosing Weight 91.818, kg, Start date: 10/04/12 9:00:00, Duration: 30 day, Stop date: 11/02/12 9:00:00 Januvia No [facility] 100 mg, 1 Memoria 4-19 n Deniz tab, l 14:00: Route: PO, [place] 00 Drug form: TAB, Daily, Dosing Weight 91.818, kg, Start date: 10/04/12 9:00:00, Duration: 30 day, Stop date: 11/02/12 9:00:00 amLODipine No [facility] 10 mg, 1 Memoria 4-19 n Deniz tab, l 14:00: Route: PO, Drug form: TAB, Daily, Dosing Weight 91.818, kg, Start date: 10/04/12 9:00:00, Duration: 30 day, Stop date: 11/02/12 9:00:00 Lantus No Estela 30 unit, Memor ia 4-19 Young 0.3 mL, l 14:00: Route: SUB-Q, Drug form: INJ, Daily, Dosing Weight 91.818, kg, Start date: 10/04/12 9:00:00, Stop date: 11/02/12 9:00:00 polyethylen No [facility] 17 gm, 1 Memoria e glycol 4-19 n Deniz pkt, l 3350 14:00: Route: PO, Drug form: PWDR, Daily, Dosing Weight 91.818, kg, Start date: 10/04/12 9:00:00, Duration: 30 day, Stop date: 11/02/12 9:00:00 Zofran 4 mg Yes [facility] 4 mg, 1 Memoria oral tablet 4-19 n Deniz tab, PO, l 13:02: Q8H, 30 [place] 06 tab, Substituti on Allowed docusate Yes [facility] 100 mg, 1 Memoria sodium 100 4-19 n Deniz cap, PO, l mg oral 13:01: Q12H, PRN, Herm robert capsule 38 20 cap, as needed for constipati on, Substituti on Allowed, CAP tramadol 50 Yes [facility] 1 - 2 tab, Memoria mg oral 4-19 n Deniz PO, Q6H, l tablet 13:00: PRN, 112 [place] 09 tab, Pain, Substituti on Allowed, TAB cyclobenzap Yes [facility] 10 mg, 1 Memoria rine 10 mg 4-19 n Deniz tab, PO, l oral tablet 13:00: TID, PRN, H ermann 04 42 tab, Spasm, Substituti on Allowed, TAB olmesartan Yes [facility] 40 mg, 1 Memoria 40 mg oral 419 n Deniz tab, PO, l tablet 12:59: Daily, 30 Richard n 34 tab, Substituti on Allowed, TAB Dilaudid No [facility] 0.3 mg, Memoria 4-19 n Deniz 0.15 mL, l 12:57: Route: IV, Drug form: INJ, Q3H, Dosing Weight 91.818, kg, PRN Pain Score 7-10, Start date: 10/04/12 7:57:00, Duration: 30 day, Stop date: 11/03/12 7:56:00 Benadryl No Jui-En 25 mg, 0.5 M emoria 4-19 Edward Kelly mL, Route: l 08:22: IVP, Drug form: INJ, ONCE, Dosing Weight 91.818, kg, PRN Insomnia, Start date: 10/04/12 3:22:00 labetalol No Estela 10 mg, 2 Me moria 4-19 Young mL, Route: l 08:05: IVP, Drug form: INJ, Q15Min, Dosing Weight 91.818, kg, PRN Hypertensi on, Start date: 10/04/12 3:05:00, Duration: 30 day, Stop date: 11/03/12 3:04:00 hydrALAZINE No [facility] 10 mg, 0.5 Memoria 4-19 n Deniz mL, Route: l 05:16: IV, Drug form: INJ, Q6H, Dosing Weight 91.818, kg, PRN Elevated BP, Start date: 10/04/12 0:16:00, Duration: 30 day, Stop date: 11/03/12 0:15:00 clonidine No Estela 0.1 mg, 1 M emoria 0.1 mg oral 4-19 Young tab, l tablet 05:00: Route: PO, Anitra Drug form: TAB, QID, Dosing Weight 91.818, kg, Start date: 10/04/12 0:00:00, Duration: 30 day, Stop date: 11/02/12 18:00:00 carvedilol 2012-0 No Estela 12.5 mg, 1 Memoria 4-19 Young tab, l 02:00: Route: PO, Troy 00 Drug form: TAB, Q12H, Dosing Weight 91.818, kg, Start date: 10/03/12 21:00:00, Stop date: 11/02/12 9:00:00 Saline 2012-0 No [facility] 5 ml, Boy tadeo Flush 0.9% 4-19 donna Guaman Route: l 02:00: IVP, Drug Form: INJ, Dosing Weight 91.818, kg, Q12H, Start date: 10/03/12 21:00:00, Duration: 30 day, Stop date: 11/02/12 9:00:00 docusate 2012-0 No [facility] 100 mg, 1 Memoria 4-19 donna Guaman cap, l 02:00: Route: PO, Troy 00 Drug form: CAP, Q12H, Dosing Weight 91.818, kg, Start date: 10/03/12 21:00:00, Duration: 30 day, Stop date: 11/02/12 9:00:00 senna 2012-0 No [facility] 8.6 mg, 1 M emoria 4-19 donna Guaman tab, l 02:00: Route: PO, Luke 00 Drug Form: TAB, Dosing Weight 91.818, kg, Q12H, Start date: 10/03/12 21:00:00, Duration: 30 day, Stop date: 11/02/12 9:00:00 Ancef + 2012-0 No [facility] 2 gm, Mem oria Sodium 4-19 donna Guaman Route: l Chloride 01:00: IVPB, Drug Her kowalski 0.9% IV 100 00 form: mL PDR/INJ, ABXQ8H, Dosing Weight 91.818, kg, Start date: 10/03/12 20:00:00, Duration: 1 day, Stop date: 10/04/12 12:00:00 tramadol 2012-0 No Maisha L 50 mg, 1 Memoria 4-18 Michael tab, l 23:56: Route: PO, Drug form: TAB, Q4H, Dosing Weight 91.818, kg, PRN Pain Score 4-6, Start date: 10/03/12 18:56:00, Stop date: 11/02/12 18:55:00 Flexeril 2013-0 No [facility] 10 mg, 1 Memoria 4-18 n Deniz tab, l 23:54: Route: PO, Drug form: TAB, TID, Dosing Weight 91.818, kg, PRN Spasm, Start date: 10/03/12 18:54:00, Duration: 30 day, Stop date: 11/02/12 18:53:00 Dextrose 2012-0 No Petra 12.5 gm, Memoria 50% Syringe 4-18 Carmen 25 mL, l 23:18: Grazyna Route: Troy 00 Law IVP, Drug Form: INJ, Dosing Weight 91.818, kg, PRN, PRN Abnormal Lab Result, Start date: 10/03/12 18:18:00, Duration: 30 day, Stop date: 11/02/12 18:17:00 insulin 2012-0 No Petra 5 unit, Me moria regular 100 4-18 Carmen 0.05 mL, l units/mL 23:18: Grazyna Route: Richard n 00 Law SUB-Q, recombinant Drug form: SOLN, PRN, Dosing Weight 91.818, kg, PRN Abnormal Lab Result, Start date: 10/03/12 18:18:00, Duration: 30 day, Stop date: 11/02/12 18:17:00 hydrALAZINE 2012-0 No [facility] 20 mg, 1 Memoria 4-18 n Deniz mL, Route: l 23:14: IVP, Drug form: INJ, Q4H, Dosing Weight 91.818, kg, PRN Other -See Comment, Start date: 10/03/12 18:14:00, Duration: 30 day, Stop date: 11/02/12 18:13:00, SBP > 150 mmHg labetalol No [facility] 20 mg, 4 Memoria 4-18 n Deniz mL, Route: l 23:14: IVP, Drug form: INJ, Q15Min, Dosing Weight 91.818, kg, PRN Elevated BP, Start date: 10/03/12 18:14:00, Duration: 3 doses or times, Stop date: 10/04/12 0:00:00, SBP > 150 mmHg naloxone No [facility] 0.2 mg, Memoria 4-18 n Deniz 0.5 mL, l 23:04: Route: Troy 00 IVP, Drug form: INJ, Q5Min, PRN Narcotic Reversal, Start date: 10/03/12 18:04:00, Duration: 30 day, Stop date: 11/02/12 18:03:00 hydrALAZINE No Kahlil 20 mg, Memoria 4-18 Eng Route: l 22:15: IVP, ONCE, Dosing Weight 91.818, kg, Start date: 10/03/12 17:15:00, Stop date: 10/03/12 17:15:00 diazepam No [facility] 5 mg, 1 Memoria 4-18 n Deniz tab, l 21:00: Route: PO, Drug form: TAB, Q8H, Dosing Weight 91.818, kg, Start date: 10/03/12 16:00:00, Duration: 30 day, Stop date: 11/02/12 8:00:00 ondansetron No Kahlil 4 mg, 2 Memoria 4-18 Eng mL, Route: l 20:54: IVP, Drug form: INJ, ONCE, Dosing Weight 91.818, kg, PRN Nausea & Vomiting, Start date: 10/03/12 15:54:00 promethazin No Kahlil 6.25 mg, Memoria e 4-18 Eng 0.25 mL, l 20:54: Route: Troy 00 IVPB, Drug form: INJ, ONCE, Dosing Weight 91.818, kg, PRN Nausea & Vomiting, Start date: 10/03/12 15:54:00 flumazenil No Kahlil 0.2 mg, 2 Memoria 4-18 Eng mL, Route: l 20:54: IVP, Drug Troy 00 form: INJ, PRN, Dosing Weight 91.818, kg, PRN Benzodiaze pine Reversal, Initial dose, Start date: 10/03/12 15:54:00, Duration: 1 day, Stop date: 10/04/12 15:53:00 naloxone No Kahlil 0.04 mg, M emoria 4-18 Eng 0.1 mL, l 20:54: Route: Luke 00 IVP, Drug form: INJ, Q2MIN, Dosing Weight 91.818, kg, PRN Narcotic Reversal, Start date: 10/03/12 15:54:00, Duration: 8 doses or times, Stop date: 10/04/12 0:00:00 fentanyl No Thelma Jaron 25 Mem oria 4-18 Maisha microgram, l 20:54: 0.5 mL, Troy 00 Route: IVP, Drug form: INJ, Q5Min, Dosing Weight 91.818, kg, PRN Pain Score 4-6, Start date: 10/03/12 15:54:00, Duration: 4 doses or times, Stop date: 10/04/12 0:00:00 labetalol No Kahlil 5 mg, 1 M emoria 4-18 Eng mL, Route: l 20:54: IVP, Drug form: INJ, Q5Min, Dosing Weight 91.818, kg, PRN Elevated BP, Start date: 10/03/12 15:54:00, Duration: 5 doses or times, Stop date: 10/04/12 0:00:00 HYDROmorpho No [facility] 15 mg, 30 Memoria ne 0.5mg/mL 18 n Deniz mL, Route: l CLEANING MATRON 17:00: IV, CLEANING MATRON Troy (15mg/30 00 Dose: 0.3 mL) 15 mg mg, CLEANING MATRON Lockout: 15 minutes, 4 Hour Limit (In MG): 4.8, Drug Form: INJ, Continuous , Start date: 10/03/12 12:00:00, Stop date: 11/02/12 11:59:00 Saline No [facility] 5 ml, Boy tadeo Flush 0.9% 4-18 donna Guaman Route: l 16:42: IVP, Drug Form: INJ, Dosing Weight 91.818, kg, PRN, PRN Line Flush, Start date: 10/03/12 11:42:00, Duration: 30 day, Stop date: 11/02/12 11:41:00 ondansetron No [facility] 4 mg, 2 Memoria 4-18 n Deniz mL, Route: l 16:42: IVP, Drug form: INJ, Q8H, Dosing Weight 91.818, kg, PRN Nausea & Vomiting, Start date: 10/03/12 11:42:00, Duration: 30 day, Stop date: 11/02/12 11:41:00 acetaminoph No [facility] 650 mg, Memoria en 4-18 n Deniz 20.3 mL, l 16:42: Route: PO, Troy 00 Drug form: LIQ, Q4H, Dosing Weight 91.818, kg, PRN Pain 1-3/Temp > 99.5 F, Start date: 10/03/12 11:42:00, Duration: 30 day, Stop date: 11/02/12 11:41:00 acetaminoph No [facility] 1 tab, Memoria en-hydrocod 18 donna Guaman Route: PO, l one 325 16:42: Drug Form: Herm robert mg-10 mg 00 TAB, oral tablet Dosing Weight 91.818, kg, Q4H, PRN Pain Score 4-6, Start date: 10/03/12 11:42:00, Duration: 30 day, Stop date: 11/02/12 11:41:00 amLODipine Yes Substituti M emoria 4-18 on Allowed l 15:03: Luke 22 NS + KCL No Keron 1,000 mL, M emoria 20mEq/L 18 Gabbie Rate: 70 l 1000ml 10:00: William ml/hr, Richard n (Premix) 00 Infuse 1,000 mL over: 14.3 hr, Route: IV, kg, Total Volume: 1,000, Start date: 10/03/12 5:00:00, Duration: 1 day, Stop date: 10/04/12 4:59:00 cefazolin No Keron 2 gm, 100 Memoria 4-18 Gabbie mL, Route: l 10:00: William WHITEPB, Drug Herm robert 00 form: INJ, PRE OP, Start date: 10/03/12 5:00:00, Duration: 1 day, Stop date: 10/04/12 4:59:00 Vicodin HP Yes PO, PRN, Mem oria 10 mg-300 4-16 Substituti l mg oral 21:32: on Luke tablet 18 Allowed, Maintenanc e Dulcolax Yes 1 supp, Memori a Laxative 4-16 KS, Daily, l 21:32: PRN, 5 Troy 02 supp, constipati on, Substituti on Allowed, SUPP clonidine Yes [facility] PO, QID, Memoria 0.1 mg oral 4-16 n Deniz prn l tablet 21:31: bp>160, Troy 30 Substituti on [id number] Benicar HCT Yes 1 tab, PO, Memoria 12.5 mg-40 4-16 Daily, 30 l mg oral 21:30: tab, Luke tablet 43 Substituti on Allowed, Maintenanc e, TAB carvedilol Yes [facility] 25 mg, 1 Memoria 25 mg oral 4-16 n Deniz tab, PO, l tablet 21:30: Q12H, 60 Luke 29 tab, Substituti on Allowed, TAB Januvia 100 Yes [facility] 100 mg, 1 Memoria mg oral 4-16 n Deniz tab, PO, l tablet 21:30: Daily, 30 Richard n 10 tab, Substituti on Allowed, TAB Lantus Yes 22 unit, Memoria 4-16 SUB-Q, l 21:29: Bedtime, Luke 53 Substituti on Allowed glimepiride Yes 8 mg, 2 Mem oria 4 mg oral 4-16 tab, PO, l tablet 21:29: Daily, Troy 45 Substituti on Allowed Vital Signs Vital Name Observation Time Observation Value Comments Source Systolic blood 2019-12-03 10:13:00 125 mm[Hg] [place] [facility] pressure Diastolic blood 2019-12-03 10:13:00 58 mm[Hg] [place] [facility] pressure Heart rate 2019-12-03 10:13:00 60 /min [place] [facility] Body weight 2019-12-03 10:13:00 99.791 kg [place] [facility] BMI 2019-12-03 10:13:00 36.61 kg/m2 [place] [facility] Body height 2019-06-03 11:12:00 165.1 cm [place] [facility] Body temperature 2018-12-23 13:16:00 36.39 Kylah [place] [facility] Temperature Oral (F) 2016-02-14 21:00:00 97.5 F [facility] Heart Rate 2016-02-14 21:00:00 [facility] [place] Respitory Rate 2016-02-14 21:00:00 Memori al [place] Systolic (mm Hg) 2016-02-14 21:00:00 Boy rial [place] Diastolic (mm Hg) 2016-02-14 21:00:00 Mem orial [place] Systolic (mm Hg) 2016-02-14 17:00:00 Boy rial [place] Diastolic (mm Hg) 2016-02-14 17:00:00 Mem orial Luke Respitory Rate 2016-02-14 17:00:00 Memori al [place] Temperature Oral (F) 2016-02-14 17:00:00 97.6 F [facility] [place] Heart Rate 2016-02-14 17:00:00 [facility] Temperature Oral (F) 2016-02-14 13:00:00 97.8 F [facility] [place] Respitory Rate 2016-02-14 13:00:00 Memori al [place] Heart Rate 2016-02-14 13:00:00 [facility] [place] Systolic (mm Hg) 2016-02-14 13:00:00 Boy rial Luke Diastolic (mm Hg) 2016-02-14 13:00:00 Mem orial [place] Weight 2016-02-10 22:04:00 [facility] Weight 2016-02-08 20:54:00 [facility] BMI Calculated 2016-02-08 20:54:00 Memori al [place] Height 2016-02-08 20:54:00 165.1 cm [facility] Weight 2016-02-08 18:23:00 [facility] Height 2016-02-08 18:23:00 172.72 cm [facility] BMI Calculated 2016-02-08 18:23:00 Memori al [place] Respitory Rate 2016-01-19 17:00:00 Memori al [place] Systolic (mm Hg) 2016-01-19 17:00:00 Boy rial Luke Diastolic (mm Hg) 2016-01-19 17:00:00 Mem orial Luke Temperature Oral (F) 2016-01-19 17:00:00 98.1 F [facility] Heart Rate 2016-01-19 17:00:00 [facility] [place] Weight 2016-01-19 13:10:00 [facility] Temperature Oral (F) 2016-01-19 13:00:00 99.5 F [facility] [place] Heart Rate 2016-01-19 13:00:00 [facility] [place] Respitory Rate 2016-01-19 13:00:00 Memori al [place] Systolic (mm Hg) 2016-01-19 13:00:00 Boy rial Luke Diastolic (mm Hg) 2016-01-19 13:00:00 Mem orial Luke Systolic (mm Hg) 2016-01-19 10:37:00 Boy rial Luke Diastolic (mm Hg) 2016-01-19 10:37:00 Mem orial [place] Heart Rate 2016-01-19 10:37:00 [facility] Respitory Rate 2016-01-19 09:00:00 Memori al [place] Temperature Oral (F) 2016-01-19 09:00:00 97.3 F [facility] BMI Calculated 2016-01-11 22:27:00 Memori al [place] Weight 2016-01-11 22:27:00 [facility] Height 2016-01-11 22:27:00 165.1 cm [facility] Respitory Rate 2012-10-06 16:00:00 Memori al [place] Systolic (mm Hg) 2012-10-06 16:00:00 Boy rial [place] Diastolic (mm Hg) 2012-10-06 16:00:00 Mem orial Luke Respitory Rate 2012-10-06 15:00:00 Memori al [place] Systolic (mm Hg) 2012-10-06 15:00:00 Boy rial Luke Diastolic (mm Hg) 2012-10-06 15:00:00 Mem orial Luke Systolic (mm Hg) 2012-10-06 14:00:00 Boy rial [place] Diastolic (mm Hg) 2012-10-06 14:00:00 Mem orial Luke Respitory Rate 2012-10-06 14:00:00 Memori al [place] Temperature Oral (F) 2012-10-06 08:33:00 96.3 F [facility] Temperature Oral (F) 2012-10-06 04:00:00 97.9 F [facility] Temperature Oral (F) 2012-10-05 09:05:00 97.6 F [facility] [place] Weight 2012-10-03 23:01:00 [facility] Height 2012-10-03 23:01:00 165.1 cm [facility] Heart Rate 2012-10-03 14:28:00 [facility] Heart Rate 2012-10-01 18:53:00 [facility] Height 2012-10-01 18:53:00 165.1 cm [facility] [place] Weight 2012-10-01 18:53:00 [facility] Procedures Procedure Date / Time Performed Performing Clinician [facility] BASIC METABOLIC PANEL 2019-01-28 11:01:00 Devan Quinones [facility] PARATHYROID HORMONE 2019-01-28 11:01:00 Devan Quinones VITAMIN D 25 HYDROXY 2019-01-28 11:01:00 Devan Quinones [facility] LEVEL VITAMIN D 1,25 DIHYDROXY 2019-01-28 11:01:00 Devan Quinones LEVEL, SERUM PHOSPHORUS LEVEL 2019-01-28 11:01:00 Devan Quinones thodist BONE DENSITY 2019-01-02 00:00:00 Provider, Khai Conti NM PARATHYROID PLANAR W 2018-12-30 12:48:21 Devan Quinones [address] PARATHYROID HORMONE 2018-12-25 13:01:00 Devan Quinones COMPREHENSIVE METABOLIC 2018-12-25 13:01:00 Devan Quinones PANEL CALCIUM LEVEL, URINE, 24 2018-12-25 13:01:00 Devan Quinones HOUR PHOSPHORUS LEVEL 2018-12-25 13:01:00 Devan Quinones Wi thodist Operation <sup>1</sup> [facility] [place] Cervical discectomy [facility] Her kowalski Knee [facility] [place] replacement<sup>1</sup> Operation<sup>2</sup> [facility] Plan of Care Planned Activity Planned Date Details Comments Source Future Scheduled 2020-01-17 INFLUENZA VACCINE [place] [facility] 00:00:00 [code = INFLUENZA VACCINE] Future Scheduled 2006 65+ PNEUMOCOCCAL [place] [facility] Test 00:00:00 VACCINE (1 of 2 - PCV13) [code = 65+ PNEUMOCOCCAL VACCINE (1 of 2 - PCV13)] Future Scheduled 1991-12-13 SHINGLES VACCINES (#1) [place] [facility] 00:00:00 [code = SHINGLES VACCINES (#1)] Future Scheduled 1951-12-13 DIABETIC FOOT EXAM [place] [facility] 00:00:00 [code = DIABETIC FOOT EXAM] Future Scheduled 1951-12-13 URINE MICROALBUMIN [place] [facility] 00:00:00 [code = URINE MICROALBUMIN] Future Scheduled 1941 DIABETIC RETINAL EYE [place] [facility] 00:00:00 EXAM [code = DIABETIC RETINAL EYE EXAM] Encounters Start End Encounter Admission Attending Care Care Encounter Source Date/Time Date/Time Type Type Clinicians Facility Department ID 2019-12-03 2019-12-03 Outpatient [facility] [id number] [place] 00:00:00 00:00:00 DEVAN [id number] 2016-02-08 2016-02-14 Outpatient Riley Whyte [facility] [id number] 10:51:00 20:30:00 Jese 2016-01-11 2016-01-19 Outpatient Coreen [facility] [id number] 16:33:00 16:30:00 Jean Paul Quiroga 2016-01-10 2016-01-10 Outpatient Ranjit Drew [facility] [id number] 23:00:00 23:00:00 Peterson 2014-03-25 2014-03-25 Outpatient LIBIA Thomas [id number] 09:57:00 23:59:00 Keron Cartwright 2013-09-17 2013-09-17 Outpatient LIBIA Thomas [id number] 11:29:00 23:59:00 Keron Cartwright Results Test Description Test Time Test Comments Results Result Comments Source Basic metabolic panel 2019-01-31 18:01:00 Test Item Value Reference Range Interpretation Comme nts Glucose (test code = 54 mg/dL 65-139 L Non-fasting 2345-7) reference inter john BUN (test code = 47 mg/dL 7-25 H 3094-0) Creatinine (test code = 1.23 mg/dL 0.6-0.93 H For patients >49 years 2160-0) of age, the ref erence limitfor Creati nine is approximately 1 3% higher for peopleident ified as -Yulisa n. EGFR Non-Afr. Colombian 42 > OR = 60 L (test code = 2775) mL/min/1.73m2 EGFR 49 > OR = 60 L (test code = 44521-6) mL/min/1.73m2 BUN/creatinine ratio 38 6- 22 (calc) H (test code = 3097-3) Sodium (test code = 144 mmol/L 272-644 0566-2) Potassium (test code = 4.3 mmol/L 3.5-5.3 2823-3) Chloride (test code = 106 mmol/L 98-110 2075-0) CO2 (test code = 29 mmol/L 20-32 2028-9) Calcium (test code = 11.1 mg/dL 8.6-10.4 H 04457-5) DAREN (test code = DAREN) FASTING:NOFASTING: NO RAC (test code = RAC) Performing Organization Information: Site ID: [facility]: [facility] Address: [address] [place] [phone] Director: Torsten Gil Lab Interpretation Abnormal (test code = 66661-6) [place] [facility] [id number] 18:01:00 Test Item Value Reference Interpretation Comments Range PTH (test 56 pg/mL 14-64 Interpretive G uide Intact code = PTH 2731-8) Calcium-------- -------Normal P arathyroid Normal NormalHypoparat hyroidism Low or Low Norm al LowHyperparathy roidism Primary Normal or High High Secondary High Normal or Low Tertiary High HighNon-Parathy roid Hypercalcemia Low or Low Normal High DAREN (test FASTING:NOFASTING code = : NO DAREN) RAC (test Performing code = Organization RAC) Information: Site ID: [id number] [facility] Address: [address] [place] [address] Director: Dr. Torsten Tabares MethodistPhosphorus [id number] 18:01:00 Test Item Value Reference Range Interpretation Comments Phosphorus (test code 2.7 mg/dL 2.1-4.3 = 2777-1) DAREN (test code = DAREN) FASTING:NOFASTING: NO RAC (test code = RAC) Performing Organization Information: Site ID: RGA [facility]: [facility] Address: [address] [place] [phone] Director: Torsten Tabares MethodjosephVitamin D 25 hydroxy [id number] 18:01:00 Test Item Value Reference Range Interpretation Comments Vitamin D, 48 ng/mL 30-100 Vitamin D Statu s 25-hydroxy 25-OH Lali min (test code = D: Deficiency: 1989-3) < 20 ng/mLInsufficie ncy: 20 - 29 ng/mLOptimal: > or = 30 ng/mL For 25-OH Vitamin D testi ng on patients on D2-supplementat ion and patients fo r whom quantitati on of D2 and D3 fractions is required, the QuestAssureD(TM )25- OH VIT D, (D2,D 3), LC/MS/MS is recommended: or hira code 17793 (patients >2yrs ). For more information on this test, go to:http://educa tion .questdiagnosti cs.c om/faq/KEN347(T his link is being provided for informational/e duca tional purposes only.) DAREN (test code FASTING:NOFASTING: = DAREN) NO RAC (test code Performing = RAC) Organization Information: Site ID: RGA [facility]: [facility] Address: [address] [place] [id number] Director: Torsten ContiVitamin D 1,25 dihydroxy level, [id number] 18:01:00 Test Item Value Reference Range Interpretation Comments Vit D, 57 pg/mL 18-72 1,25-Dihydroxy (test code = 38755-8) Vitamin D2, 14 pg/mL 1,25 (OH)2 (test code = 1649-3) Vitamin D2, 43 pg/mL Vitamin D3, 1,25 (OH)2 1,25(OH)2 indic ates (test code = both endogenous 22847-8) production and supplementation . Vitamin D2, 1,2 5(OH)2 is an indicator of exogenous sour yair, such as diet or supplementation . Interpretation and therapy are bas ed on measurement of Vitamin D, 1,25 (OH)2, Total. This monica t was developed and i ts analytical perf ormance characteristics have been determined by [employer] [facility]. It vargas s not been cleared or approved by the USFood and Drug Administration. This assay has been validated pursu ant to the [place] regula tions and is used for clinical purpos es. DAREN (test code FASTING:NOFASTING: = DAREN) NO RAC (test code Performing = RAC) Organization Information: Site ID: SLI Name: [facility] Address: [address] [place] [address] Director: Mark Mcbride M.D., Ph.D [facility] Parathyroid Planar W Spect And [id number] 13:29:21Hm Interface, Radiology Results 12/30/2018 1:32 PM CDTPROCEDURE: NM PARATHYROID PLANAR W SPECT AND CTINDICATION: Hyperparathyroidism. Hypercalcemia. TECHNIQUE: The patient was injected with 25 mCi of Tc-99m sestamibi, IV. Immediately after injection, planar and SPECT-CT imaging of the neck and chest was performed. Approximately three hours after injection, repeat planar images of the neck and chest were acquired. FINDINGS: Imaging is limited, due to patient claustrophobia. No abnormal tracer accumulation with subsequent retention is seen. No suspicious uptake outside the thyroidbed. Limited CT images appear to demonstrates nodularity in the left upper lobe. There appears to be some nodularity posterior and inferior to the left lower thyroid pole, not well evaluated, due to beam hardening artifact from hardware in both shoulders. IMPRESSION: 1. Unable to localize a parathyroid adenoma. This study is limited by patient claustrophobia. Subtle nodularity in the left thyroid bed is likely too small to characterize with this modality and may be better characterized with a4D neck CT.2. Apparent nodularity in the left upper lobe. This would be better evaluated with chest CT.[facility]-[id number] MethodistComprehensive metabolic [id number] 19:13:00 Test Item Value Reference Interpretation Comments Range Glucose (test code 196 mg/dL 65-139 H N on-fasting = 2345-7) reference inter john BUN, whole blood 37 mg/dL 7-25 H (test code = 3094-0) Creatinine (test 1.24 mg/dL 0.6-0.93 H For patient s >49 code = 2160-0) years of age, the reference limit for Creatinine is approximately 1 3% higher for peopleidentifie d as -Yulisa n. EGFR Non-Afr. 42 > OR = 60 L Colombian (test code mL/min/1.73m2 = 2775) EGFR 49 > OR = 60 L Colombian (test code mL/min/1.73m2 = 53739-2) BUN/creatinine 30 6- 22 (calc) H ratio (test code = 3097-3) Sodium (test code = 136 mmol/L 915-220 8020-2) Potassium (test 5.4 mmol/L 3.5-5.3 H code = 2823-3) Chloride (test code 100 mmol/L 98-110 = 2075-0) CO2 (test code = 30 mmol/L 20-32 8-9) Calcium (test code 11.0 mg/dL 8.6-10.4 H = 58959-5) Protein (test code 6.1 g/dL 6.1-8.1 = 2885-2) Albumin, S (test 3.9 g/dL 3.6-5.1 code = 1751-7) Globulin, total 2.2 1.9- 3.7 g/dL (test code = (calc) 28130-5) Albumin/globulin 1.8 1.0- 2.5 ratio (test code = (calc) 1759-0) Total bilirubin 0.6 mg/dL 0.2-1.2 (test code = 1975-2) Alkaline 66 U/L 33-130 phosphatase (test code = 6768-6) AST (test code = 14 U/L 10 1920-8) ALT (test code = 19 U/L 12-14 1742-6) DAREN (test code = FASTING:NOFASTING DAREN) : NO RAC (test code = Performing RAC) Organization Information: Site ID: RGA Name: [facility] Address: [address] [place] [phone] Director: Carol Russell Lab Interpretation Abnormal (test code = 10570-6) [place] MethodistCalcium level, urine, 24 kwbj6710-11-65 19:13:00 Test Item Value Reference Range Interpretation Comments Calcium, 24 109 mg/24 h hour urine Referenc e (test code = Range 35-250 6874-2) Low calcium d iet 35-200URINE VOLUME: 1950/24 DAREN (test code FASTING:NOFASTING: NO = DAREN) RAC (test code Performing = RAC) Organization Information: Site ID: RGA Name: [facility] Address: [address] [place] [phone] Director: Carol Russell [place] MethodistCHEM BQOBD7353-18-15 09:05:001.8[facility] HermannCHEM PANEL 2016-01-17 09:05:002.4[facility] HermannCHEM IYDSP5655-49-76 09:05:0030[facility] HermannCHEM WTYDI4241-83-88 09:05:84295Rgmaxpdg HermannCHEM LNXJI2818-65-44 09:05:000.80[facility] HermannCHEM EJPNF5775-87-82 09:05:0020[facility] HermannCHEM LWNWK9638-02-15 09:05:0073[facility] HermannCHEM TQYGL5039-76-62 09:05:002.8 [facility]annCHEM HDIBO2672-44-42 09:05:0010.5[facility] HermannCHEM PANEL 2016-01-17 09:05:004.3[facility] HermannCHEM YDOMO5783-12-49 09:05:19669Ccyqilpw HermannCHEM ENVSY5934-79-77 09:05:52067Mndkgjlg HermannCHEM ITDOH2583-75-29 09:05:0010.3[facility] UghvbtsURTGQPRWPB8003-91-03 09:05:001.3[facility] CUKIWMNFKX8710-93-21 09:05:004.4[facility] GggljelNKBVEHKHUV5718-47-87 09:05:000.3 [facility] JiqdxzgRHWVXFRKCH4632-24-96 09:05:000.6[facility] HermannHEMATOLOGY 2016-01-17 09:05:000.5[facility] EryeuxsNVRTGWSXJB8022-34-42 09:05:004.9[facility] EvgyyrqCVGMOREWGE9667-98-36 09:05:009.1[facility] OgrlhskXNNEBTGGXC1199-80-86 09:05:0018.9[facility] OkpxkjeGZLWWDSEGG2433-57-37 09:05:0066.6[facility] CQDYDVLJDI5559-17-78 09:05:009.4[facility] RkvykqmUSNSCSTGPX0726-70-85 09:05:88460 [facility] FwvlhugWGTIWHOHLN8000-09-49 09:05:0013.4[facility] HermannHEMATOLOGY 2016-01-17 09:05:0032.8[facility] IrxkmsxQCFBHDTGNM9405-04-28 09:05:00 Test Item Value Reference Range Interpretation Comments MCH (test code = MCH) 30.7 pg 27.0-31.0 [facility] HtyrqvvLBXYBKBOWB3791-08-68 09:05:0093.6[facility] HermannHEMATOLOGY 2016-01-17 09:05:006.6[facility] FxtocriKKVKSYXYNR8394-23-53 09:05:0041.0[facility] MwjbdpsTUSHVXABCL7545-09-93 09:05:0013.4[facility] InuwcbeGDYQEWYAEX7157-40-77 09:05:004.38[facility] HermannSPECIAL BDUMTTKGX3368-75-91 09:05:0010.3[facility] HermannCHEM GICNF1039-85-23 09:17:0081[facility] HermannCHEM MXBHU0879-44-89 09:17:000.73[facility] HermannCHEM JBVFF5842-09-74 09:17:007[facility] HermannCHEM AXJHI9401-39-30 09:17:005.0[facility] HermannCHEM JKYQR5179-62-07 09:17:0073 [facility]annCHEM YLCZC9926-77-13 09:17:0029[facility] HermannCHEM PANEL 2016-01-15 09:17:000.7[facility] HermannCHEM JCHPC7414-66-71 09:17:002.7[facility] HermannCHEM TDFGL4147-46-07 09:17:0010.9[facility] HermannCHEM HTLRL6629-54-00 09:17:0010.0[facility] HermannCHEM AVSRH7762-63-55 09:17:65577Vaagonym HermannCHEM YXBCU4067-15-76 09:17:003.9[facility] HermannCHEM EUCYP2801-48-79 09:17:0020 [facility]annCHEM MFQDE5482-82-04 09:17:89984Fvmkviov HermannCHEM PANEL 2016-01-15 09:17:45352Bknvesdi HermannCHEM ANHOE8859-05-29 09:17:0029[facility] HermannCHEM HSZYE2044-96-95 09:17:0027[facility] HermannCHEM LLWBZ7036-06-97 09:17:001.2[facility]annCHEM ZGYED1707-15-58 09:17:002.3[facility] HBEAEUCOJK9516-20-24 09:17:0011.7[facility] IptoerxHRPYGCHRKG6092-14-84 09:17:00 4.9[facility] RafsffhPIOVMXOVDS0452-78-07 09:17:000.4[facility] HermannHEMATOLOGY 2016-01-15 09:17:001.3[facility] UlcbsffJHXPEYVXOX5553-00-78 09:17:001+ *ABN*(01/15/16 4:17 AM)[facility] MlwibgcLGFYZQEHWA0481-79-73 09:17:0067.7[facility] HkfgabxOANYCJJDOY5795-36-12 09:17:0017.4[facility] FgvuzrkXFHMCOMUJJ9995-13-03 09:17:002.8[facility] LsrcyiuNTKPFCLDWM7413-57-32 09:17:000.0[facility] MCKOJCVQOT9870-05-16 09:17:000.2[facility] DxihzasLTKWPEENWS9587-37-58 09:17:000.9 [facility] HvbevmkWNCAPCBMEX6795-10-06 09:17:55348Pjyeabca HermannHEMATOLOGY 2016-01-15 09:17:007.3[facility] XpzdnssAIOOYCXGXI2766-53-10 09:17:0039.8[facility] KjwxjijISKWKEXCDP8295-66-15 09:17:0013.0[facility] AkcghxwJAKTFXOQLZ3388-66-56 09:17:004.23[facility] YipbjrwARUYKOGAXQ7966-22-74 09:17:0032.8[facility] VMECJXLRKG6931-69-34 09:17:0094.0[facility] HzxibaeMWDRKUREAV5730-78-43 09:17:00 Test Item Value Reference Range Interpretation Comments MCH (test code = MCH) 30.8 pg 27.0-31.0 [facility] HbvptmbYLVYCFFRDG1458-44-83 09:17:0013.5[facility] HermannHEMATOLOGY 2016-01-15 09:17:009.6[facility] HermannCHEM HAMSR3336-05-90 10:06:24208Yefhtzys HermannCHEM PLNXM2547-12-67 10:06:0015[facility] HermannCHEM BYPUY4265-33-22 10:06:0011.7[facility] HermannCHEM SJQSX0380-88-69 10:06:0010.1[facility] CHEM TDBDD0916-22-31 10:06:003.7[facility] HermannCHEM RSLTH3737-77-14 10:06:20563 [facility] HermannCHEM HUEUH5450-03-87 10:06:0028[facility] HermannCHEM PANEL 2016-01-14 10:06:10063Myjwasjs HermannCHEM LKQZU2064-88-69 10:06:000.70[facility] HermannCHEM MOQGZ7373-48-14 10:06:0086[facility] HermannCHEM RWNYT6720-84-95 10:43:004.9[facility] HermannCHEM ODVJP3976-50-70 10:43:0060[facility] HermannCHEM APIZK9996-95-53 10:43:000.4[facility] HermannCHEM LMOGN4400-71-32 10:43:0022 [facility] HermannCHEM FWVST2542-92-83 10:43:0012[facility] HermannCHEM PANEL 2016-01-13 10:43:002.7[facility] HermannCHEM DYJZL5976-23-38 10:43:002.2[facility] HermannCHEM PTOZR1557-05-68 10:43:001.2[facility] HermannCHEM QDBTR7938-32-00 10:43:0023[facility] BlzszjzPPJLYPHNMH0342-41-41 10:43:004.18[facility] JXKSBFBKUL6474-96-41 10:43:006.7[facility] RnvkzmcYSBCJCHAJC4652-65-82 10:43:009.3 [facility] XivbgriYDSUSRAUPW6186-64-98 10:43:07880Wvtpqrqb HermannHEMATOLOGY 2016-01-13 10:43:0012.8[facility] CeowxtqTDQMEVPOII5295-88-89 10:43:00 Test Item Value Reference Range Interpretation Comments MCH (test code = MCH) 30.7 pg 27.0-31.0 [facility] ZihlsxqWHQPWLGSHY8261-41-14 10:43:0093.8[facility] HermannHEMATOLOGY 2016-01-13 10:43:0039.2[facility] TxfdmlmRCNDSFHEIM5096-45-36 10:43:0012.8[facility] OevmzzfNCJPIKGPQP3937-10-68 10:43:0032.8[facility] AznpayuOYJZAERZTU3513-26-39 10:43:0021.4[facility] VizdbcwOFJTQGMAJX5796-30-48 10:43:0064.1[facility] MCFZSRUNRM2514-69-10 10:43:003.1[facility] MxpodlsPNVGKFURCJ3080-77-32 10:43:00 10.9[facility] RwjeqxpUDRSOKZWYV7404-18-32 10:43:000.5[facility] HermannHEMATOLOGY 2016-01-13 10:43:000.0[facility] VaphxqeKZQIBPQUZA9063-57-93 10:43:000.2[facility] VvvshmvJKQJPWNKGZ4355-94-02 10:43:000.7[facility] QasolhrNNDPQHDWYR4268-43-58 10:43:001.4[facility] YxjfzdsYJGWZRPVZW3126-53-52 10:43:004.3[facility] HermannCHEM VVAHO1197-74-62 23:48:001.8[facility] HermannCHEM GZCHZ4643-26-41 23:48:002.0 [facility] SkirxheKBBXKLTWWK9003-16-47 23:48:000.0[facility] HermannHEMATOLOGY 2016-01-11 23:48:001+ *ABN*(01/11/16 6:48 PM)[facility] RbimxfyEDLNFKFJXR9765-38-00 23:48:000.99[facility] SrhnoifJNSULACXQM1623-97-67 23:48:00 Test Item Value Reference Range Interpretation Comments PTT (test code = PTT) 23.5 s 22.9-35.8 [facility] JkscnphJBDKRIZNYW8920-54-36 23:48:00 Test Item Value Reference Range Interpretation Comments PT (test code = PT) 13.4 s 12.0-14.7 [facility]UCOSE RLRPXBF1538-66-16 12:49:70112Rzspolrm [facility] BEDSIDE GLUCOSE LSVWPOS8192-34-87 08:39:96937Aglgcgxl FyojrrdBOZKTOKTX2092-06-75 07:19:0014.3[facility] SzvgpwyULDZRLPJX2684-13-80 07:19:0075[facility] MDFFOTYJF9199-29-67 07:19:46989Gktofntk RlkdfkaRJWCFNMUM3965-72-97 07:19:70374 [facility] FrjjrhtDOIALERDT8429-44-55 07:19:0025[facility] HermannCHEMISTRY 2012-10-06 07:19:0010.7[facility] RgprdgiHZUQASQOQ8103-19-69 07:19:004.3[facility] TfvgrvbXBVHPTGIB3345-43-03 07:19:75483Nhauaaas OsvporsBKUNLWSUB1891-35-47 07:19:000.8[facility] OvsfwxdZWBELPLTQ1390-01-51 07:19:0020[facility] FKENVHUXUX4811-48-16 07:19:0014.0[facility] SjmbiotDMULXQZPHR9124-61-79 07:19:00 42.5[facility] TpkazowZPTAUYNQZJ9972-13-21 07:19:0092.3[facility] HermannHEMATOLOGY 2012-10-06 07:19:00 Test Item Value Reference Range Interpretation Comments MCH (test code = MCH) 30.5 pg 27.0-31.0 N [facility] WfxsygtHWDIYEGIBC6566-86-99 07:19:0033.0[facility] HermannHEMATOLOGY 2012-10-06 07:19:0014.6[facility] EykvtcbYLBDLJALCL0740-57-57 07:19:64581Nyaldyrv QhtuxboANJILMXXEG9140-67-29 07:19:0010.0[facility] JrjbgpgKJSUSEGUNQ6007-28-63 07:19:004.60[facility] XwfwgckIKQGFQLTSC3549-99-66 07:19:0013.0[facility] BEDSIDE GLUCOSE GVSGAEU0531-88-84 04:41:31668Psmacfim ElpoucdTOCOBCVID1021-80-00 07:50:322.0[facility] UjoteakVDUSRJQOFY2976-85-38 06:52:38Yellow *NA*(10/04/2012 01:52:38)[facility] EejubacGCGGJZWQAY1398-95-56 06:52:38Occasional /HPF *NA*(10/04/2012 01:52:38)[facility] TvvhepiREPLFAEJXZ4209-54-45 06:52:38Occasional /LPF *NA*(10/04/2012 01:52:38)[facility] XvddkbeNBHRUKMJZF6619-23-85 06:52:386 [facility] VhaexivPKMOHBZCUG3846-86-54 06:52:38Small *ABN*(10/04/2012 01:52:38) [facility] VcykysfWXLJIOMTAD1855-21-60 06:52:3812[facility] HermannURINALYSIS 2012-10-04 06:52:3810 mg/dL *ABN*(10/04/2012 01:52:38)[facility] HermannURINALYSIS 2012-10-04 06:52:385.0[facility] WvofjnrIAFHRIRXZD8456-96-62 06:52:381.022[facility] DeiaxqpRDGPYFMAPS6559-41-22 06:52:38Slight *ABN*(10/04/2012 01:52:38)[facility] KngqymfXFNESQZVQS2209-68-07 06:52:38Negative (10/04/2012 01:52:38)[facility] ZzwqeraSHELINCXQG8975-72-43 06:52:38Small *ABN*(10/04/2012 01:52:38)[facility] ZbgagmcVSJRGGFJRU9165-07-29 06:52:38Negative *NA*(10/04/2012 01:52:38)[facility] VzoymenEIQDBEHJPZ2931-46-79 06:52:38Negative mg/dL *NA*(10/04/2012 01:52:38) [facility] ExpnhfoZGAZDQVZZQ9295-15-77 06:52:3830 mg/dL *ABN*(10/04/2012 01:52:38) [facility] SuvinxuHHHOHNNKP2591-55-94 06:52:003.5[facility] HermannCHEMISTRY 2012-10-04 06:52:0013.4[facility] TmcqricSWKWQXDLK8490-60-35 06:52:69398Xxypulsa CtnshjuVPRHXLSEE6294-33-89 06:52:000.9[facility] GdpxevgBJAZSMCGL3227-19-49 06:52:0017[facility] EbwrrxzKCVIWWOBX2147-41-77 06:52:71593Cbydqylo Luke ZLWHRMRJN2224-61-53 06:52:60076Kiffqebd XhtcgoaXJODXRHWH4208-65-94 06:52:009.7 [facility] WdfskweMZZFKBHXE2099-03-33 06:52:004.4[facility] HermannCHEMISTRY 2012-10-04 06:52:0026[facility] XsoskwvCHNMCTRQD5783-45-12 06:52:0065[facility] BmxtzinWTILVWKJO9772-20-27 06:52:001.5[facility] JxzsyntFKOQPBDMBH7505-48-88 06:52:004.85[facility] ShlbikqTFQIXNIQNA1460-93-62 06:52:009.2[facility] YGSTBVDJCZ7796-76-74 06:52:0014.9[facility] XxfsdizIMSFDHSHLS8223-46-08 06:52:00 33.3[facility] IyzbbqyLAHDHFIXTH2398-93-14 06:52:00 Test Item Value Reference Range Interpretation Comments MCH (test code = MCH) 30.7 pg 27.0-31.0 N [facility] QebtgxjVNCGYTFZBL6201-95-88 06:52:0044.9[facility] HermannHEMATOLOGY 2012-10-04 06:52:0092.4[facility] LpntkslLDSMFTEEVR0502-70-42 06:52:0014.5[facility] ZhvykxmZHTQUIRQHQ2001-52-39 06:52:36853Ciyuihol QlftdffKHADLYUFRA6096-12-10 06:52:009.5[facility] ErchbsiRNMRWWNMML0718-37-23 06:52:007.7[facility] TRTQBDJVWE4264-31-13 06:52:000.3[facility] KcyenfzFWIPTGTBSH1439-94-89 06:52:000.6 [facility] HjcldsmEQUONIPYZA9385-81-82 06:52:000.9[facility] HermannHEMATOLOGY 2012-10-04 06:52:009.5[facility] VxnwiidKCCENWCCXV8335-77-52 06:52:0084.1[facility] LonhjmfVTWWNKLMRB7190-84-16 06:52:006.0[facility] NftrpzbUTZXIXVYPI1808-22-22 06:52:000.1[facility] TjdjcffQKOSGMVIA6144-75-63 19:08:05933Tonmngwh [place] CWBDNHOBK9800-16-07 19:08:000.7[facility] QylvlvhYNIXTEAXS3523-56-75 19:08:0024 [facility] HuqhsrvKLCHYKPGD3220-44-95 19:08:00-1[facility] HermannCHEMISTRY 2012-10-03 19:08:0035.0[facility] ZbeakifIXWQLGCHN7796-03-91 19:08:0096.0[facility] LvcohgrKRCEOJYOZ4642-00-33 19:08:003.4[facility] HpshssiMTIQTXIRZ7725-89-00 19:08:82968Ubaueprz RiewyfuZABCBKTWX7629-75-74 19:08:0040[facility] AKKGOUYCL9686-69-51 19:08:001.26[facility] CnjgkwuNDHINEIRJ3018-31-25 19:08:0037.0 [facility] OsjtuyaXVYEQGJSR6601-64-53 19:08:0085[facility] HermannCHEMISTRY 2012-10-03 19:08:007.39[facility] ErvaxlvBKGPQQYOV1300-88-55 17:27:0044[facility] DiyuoksIJQMIBZQC9191-82-78 17:27:001[facility] GdyfnkmVZZGAJJWF2894-79-39 17:27:00 26[facility] BghwlduHMXOSGZDJ0463-42-13 17:27:55889Yhampvec HermannCHEMISTRY 2012-10-03 17:27:44165Peajvuxz NryeaeqOYTGFMTJA6920-48-62 17:27:001.29[facility] CwpxceuUVIVIJTJH4911-98-65 17:27:0099.0[facility] GwgqwzbFJHIWZUDS4407-05-97 17:27:003.9[facility] DicvufnHXYXHDGHL8699-13-63 17:27:0038.0[facility] VQMREXWNW6598-91-75 17:27:007.38[facility] TuwlualBVOWLFDZA8451-90-60 17:27:0037.0 [facility] BmpacnkPUZFZMVOZ1660-26-78 17:27:47904Syfcarjx HermannCHEMISTRY 2012-10-03 17:27:001.1[facility] HermannBLOOD BANK STRRDRL5063-58-86 14:25:00 Negative (10/03/2012 09:25:00)[facility]
[2019-12-13 13:05] LABS: Absolute Lymphocytes (CBC) 1.1 K/uL (0.7-4.9); Basophils % 0.5 % (0-1.3); Hematocrit 44.2 % (36.0-45.0); Lymphocytes % 11.7 % (15.3-44.8); MPV 10.1 fL (7.6-11.3); RBC Red Blood Cell Count 4.64 M/uL (3.86-4.86)
[2019-12-13 13:36] LABS: Albumin 3.6 g/dL (3.4-5.0); Bilirubin Direct 0.1 mg/dL (0-0.2); Bilirubin Total 0.4 mg/dL (0.2-1.0); Potassium 4.4 mmol/L (3.5-5.1); Protein, Total 7.1 g/dL (6.4-8.2)
[2019-12-13 13:37] LABS: Magnesium 2.4 mg/dL (1.8-2.4); Troponin (Emerg Dept Use Only) 0.84 ng/mL (0.0-0.045)
[2019-12-13] MEDS ORDERED: ONDANSETRON 4 MG/2 ML VIAL ONE (13:41)
[2019-12-13] MEDS ORDERED: MORPHINE 4 MG/ML SYR ONE (13:41)
--- NOTE | 2019-12-13 13:45 | EDPHYS ---
Physician Documentation [facility] Name: Kate Love Age: 79 yrs Sex: Female : 1940 Arrival Date: 12/13/2019 Time: 12:48 Bed 3 Private MD: ED Physician Alex Shipley HPI: 12/12 12:56 This 79 yrs old Female presents to ER via Unassigned with complaints of Chest rn Pain > 30 y/o. 12:56 The patient or guardian reports chest pain that is located primarily in the substernal rn area. Onset: at 03:00. The pain does not radiate. Associated signs and symptoms: Pertinent positives: diaphoresis, Pertinent negatives: abdominal pain, headache, lightheadedness, palpitations, shortness of breath, syncope, vomiting. The chest pain is described as burning, a pressure. Duration: The patient or guardian reports multiple episodes, that are intermittent. Modifying factors: The symptoms are alleviated by nothing. the symptoms are aggravated by nothing. Severity of pain: At its worst the pain was moderate in the emergency department the pain has improved. The patient has experienced similar episodes in the past. Reports chest pain, began at 0300 today, assoc with diaphoresis, no cough/sob. No trauma. Reports began as burning like indigestion, progressed to feeling like pressure. No abd pain/vomiting/diarrhea. . Historical: - Allergies: 12:58 No Known Allergies; em - PMHx: 12:58 Diabetes - IDDM; Hyperlipidemia; Hypertension; Asthma; em - PSHx: 12:58 Knee surgery; "plate in neck"; em - Immunization history:: Adult Immunizations up to date. - Social history:: Smoking status: Patient denies any tobacco usage or history of. - Family history:: not pertinent. - Hospitalizations: : No recent hospitalization is reported. ROS: 12:56 Constitutional: Negative for fever, chills, and weight loss, Eyes: Negative for injury, rn pain, redness, and discharge, Neck: Negative for injury, pain, and swelling, Cardiovascular: Negative for palpitations Respiratory: Negative for shortness of breath, cough, wheezing, and pleuritic chest pain, Abdomen/GI: Negative for abdominal pain, nausea, vomiting, diarrhea, and constipation, MS/Extremity: Negative for injury and deformity, Skin: Negative for injury, rash, and discoloration, Neuro: Negative for headache, weakness, numbness, tingling, and seizure. Exam: 12:56 Constitutional: This is a well developed, well nourished patient who is awake, alert, rn and in no acute distress. Head/Face: Normocephalic, atraumatic. Neck: Trachea midline, no masses palpated Cardiovascular: Regular rate and rhythm. No pulse deficits. Respiratory: Speaking full sentences. No increased work of breathing, no retractions or nasal flaring. Abdomen/GI: soft, non-tender Skin: Warm, dry MS/ Extremity: Pulses equal, no cyanosis. Equal circumference, + bilateral non-pitting edema. Neuro: Awake and alert, GCS 15 12:56 ECG was reviewed by the Attending Physician. Vital Signs: 12:49 BP 142 / 80; Pulse 70; Resp 15; Temp 97.9(O); Pulse Ox 98% on R/A; Weight 97.07 kg; em Height 5 ft. 5 in. (165.10 cm); Pain 0/10; 13:00 BP 135 / 67; Pulse 68; Resp 15 S; Pulse Ox 97% on R/A; jl7 13:30 BP 149 / 72; Pulse 63; Resp 17; Pulse Ox 97% ; jl7 14:14 BP 153 / 68; Pulse 62; Resp 14; Pulse Ox 97% ; jl7 12:49 Body Mass Index 35.61 (97.07 kg, 165.10 cm) em MDM: 12:54 Patient medically screened. rn 13:40 ED course: Sudden onset of chest pain again, repeat ECG shows infero-lateral STEMI, rn already received aspirin, given morphine/zofran, will anticoagulate and transfer. Consulted with Dr. Puente here, unable to cath. 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 14:04 ED course: Pain resolved after medication. Pain 0/10. . rn 12/12 12:49 Order name: Basic Metabolic Panel; Complete Time: 13:40 em 12/12 12:49 Order name: CBC with Diff; Complete Time: 13:40 em 12/12 12:49 Order name: LFT's; Complete Time: 13:40 em 12/12 12:49 Order name: Magnesium; Complete Time: 13:40 em 12/12 12:49 Order name: NT PRO-BNP; Complete Time: 13:40 em 12/12 12:49 Order name: PT-INR; Complete Time: 13:40 em 12/12 12:49 Order name: Troponin (emerg Dept Use Only); Complete Time: 13:40 em 12/12 12:49 Order name: XRAY Chest (1 view) em 12/12 12:49 Order name: EKG; Complete Time: 12:49 12/12 12:49 Order name: Cardiac monitoring; Complete Time: 13:56 em 12/12 12:49 Order name: EKG - Nurse/Tech; Complete Time: 13:56 em 12/12 12:49 Order name: IV [place] Lock; Complete Time: 13:56 em 12/12 12:49 Order name: Labs collected and sent; Complete Time: 13:56 em 12/12 12:49 Order name: O2 Per Protocol; Complete Time: 13:56 12/12 12:49 Order name: O2 Sat Monitoring; Complete Time: 13:56 em EC:56 Rate is 65 beats/min. Rhythm is regular. QRS [place] is Normal. MS interval is prolonged rn at 214 msec. QRS interval is normal. QT interval is normal. No Q waves. T waves are Inverted in leads III, aVF. T waves are Flattened in leads V5, V6. No ST changes noted. Clinical impression: NSR w/ Non-specific ST/T Changes. Interpreted by me. Reviewed by me. Administered Medications: 13:40 Drug: morphine 4 mg Route: IVP; Site: right forearm; jl7 14:00 Follow up: Response: No adverse reaction; Pain is decreased jl7 13:40 Drug: Zofran (Ondansetron) 4 mg Route: IVP; Site: right forearm; jl7 14:00 Follow up: Response: No adverse reaction jl7 13:48 Drug: PlaVIX 300 mg Route: PO; jl7 14:20 Follow up: Response: No adverse reaction jl7 13:49 Drug: Heparin (OH-Bolus No thrombolytic) - HEParin 60 units/kg {Co-Signature: em (Abiodun Bowling RN).} Route: IVP; Site: right forearm; 14:20 Follow up: Response: No adverse reaction jl7 13:50 Drug: Heparin (OH Drip) 12 units/kg/hr - (HEParin 09405 units, D5W 500 ml) jl7 {Co-Signature: em (Abiodun Bowling RN).} Route: IV; Rate: calculated rate; Site: right forearm; 14:20 Follow up: IV Status: Infusion continued upon transfer jl7 Disposition: 13:52 Critical Care:. rn Disposition: 12/13/19 13:44 Transfer ordered to [facility]. Diagnosis is ST elevation (STEMI) myocardial infarction of unspecified site. - Reason for transfer: Higher level of care. - Accepting physician is Dr. Richardson. - Condition is Stable. - Problem is new. - Symptoms have improved. Critical care time excluding procedures: 13:52 Critical care time: Bedside Care: 20 minutes, Consultation: 5 minutes. Total time: 25 rn minutes Signatures: Dispatcher [employer] Abiodun Swann RN Alex Darnell MD MD rn Leal, Jahala, RN RN jl7 Abiodun whitt Corrections: (The following items were deleted from the chart) 13:52 13:44 12/13/2019 13:44 Transfer ordered to [facility]. Diagnosis is ST rn elevation (STEMI) myocardial infarction of unspecified site. Reason for transfer: Higher level of care. Accepting physician is . Condition is Stable. Problem is new. Symptoms have improved. rn 14:28 13:52 12/13/2019 13:44 Transfer ordered to [facility]. Diagnosis is ST jl7 elevation (STEMI) myocardial infarction of unspecified site. Reason for transfer: Higher level of care. Accepting physician is Dr. Richardson. Condition is Stable. Problem is new. Symptoms have improved. rn
--- NOTE | 2019-12-13 13:45 | ER ---
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 Coronavirus screen: Proceed with normal triage. Patient denies a cough. Patient denies shortness of breath or difficulty breathing. Patient denies measured and/or subjective temperature greater than 100.4F prior to today's visit. Patient denies travel on a cruise ship or to a country the [facility] currently lists as an affected area. Patient denies contact with known and/or suspected case of COVID-19. Ebola Screen: Patient negative for fever greater than or equal to 101.5 degrees Fahrenheit, and additional compatible Ebola Virus Disease symptoms Patient denies exposure to infectious person. Patient denies travel to an Ebola-affected area in the 21 days before illness onset. No symptoms or risks identified at this time. Initial Sepsis Screen: Does the patient meet any 2 criteria?. Initial Sepsis Screen: Does the patient have a suspected source of infection? No. Patient's initial sepsis screen is negative. Risk Assessment: Do you want to hurt yourself or someone else? Patient reports no desire to harm self or others. Onset of symptoms was December 13, 2019 at 03:30. 12:49 Method Of Arrival: EMS: [facility] em 12:49 Acuity: AURELIA 2 em Historical: - Allergies: 12:58 No Known Allergies; em - PMHx: 12:58 Diabetes - IDDM; Hyperlipidemia; Hypertension; Asthma; em - PSHx: 12:58 Knee surgery; "plate in neck"; em - Immunization history:: Adult Immunizations up to date. - Social history:: Smoking status: Patient denies any tobacco usage or history of. - Family history:: not pertinent. - Hospitalizations: : No recent hospitalization is reported. Screenin:49 Abuse screen: Denies threats or abuse. Nutritional screening: No deficits noted. em Tuberculosis screening: No symptoms or risk factors identified. Fall Risk None identified. Assessment: 13:00 General: Appears in no apparent distress. uncomfortable, Behavior is calm, cooperative, jl7 appropriate for age. Pain: Complains of pain in anterior aspect of left upper chest Pain does not radiate. Pain currently is 0 out of 10 on a pain scale. at worst was 5 out of 10 on a pain scale. Quality of pain is described as pressure, Pain began 0300 Is intermittent. Neuro: Level of Consciousness is awake, alert, obeys commands, Oriented to person, place, time, situation. Cardiovascular: Patient's skin is warm and dry. Respiratory: Airway is patent Respiratory effort is even, unlabored, Respiratory pattern is regular, symmetrical. Derm: Skin is pink, warm \\T\\ dry. 13:45 Reassessment: Pt reports increasing chest pain, rated 8/10, EKG repeated and showed to [facility] provider, see [facility] for orders. 14:08 Reassessment: pt reports decreased pain at this time. [facility] 14:14 Reassessment: [facility] at bedside to transport pt. [facility] Vital Signs: 12:49 BP 142 / 80; Pulse 70; Resp 15; Temp 97.9(O); Pulse Ox 98% on R/A; Weight 97.07 kg; em Height 5 ft. 5 in. (165.10 cm); Pain 0/10; 13:00 BP 135 / 67; Pulse 68; Resp 15 S; Pulse Ox 97% on R/A; jl7 13:30 BP 149 / 72; Pulse 63; Resp 17; Pulse Ox 97% ; jl7 14:14 BP 153 / 68; Pulse 62; Resp 14; Pulse Ox 97% ; jl7 12:49 Body Mass Index 35.61 (97.07 kg, 165.10 cm) em ED Course: 12:48 Patient arrived in ED. em 12:49 Patient maintains SpO2 saturation greater than 95% on room air. em 12:53 Alex Shipley MD is Attending Physician. rn 12:57 Triage completed. em 12:58 Arm band placed on. em 12:59 Patient has correct armband on for positive identification. monitor worker on. Pulse em ox on. NIBP on. 12:59 Maintain EMS IV. Dressing intact. Good blood return noted. Site clean \\T\\ dry. Gauge \\T\\ em site: 20 R FA. 13:00 Initial lab(s) drawn, by me, sent to lab. EKG done, by ED staff, reviewed by Alex Shipley MD. 13:03 Concepcion Cabral, JENNIE is Primary Nurse. jl7 13:12 XRAY Chest (1 view) In Process Unspecified. EDMS 13:38 Chief Cruiser called and connected Dr. Puente with Dr. Shipley for patient consultation. eb 13:49 initiated a transfer Ky[facility] from the [facility]. eb 13:50 connected the emergency room doctor chief juvenile probation officer for [facility] with Dr. Shipley for patient transfer consultation. 13:57 administrative approval given by Claudette Ryan/ patient has been accepted to [facility] quality assurance qa lab technician/ report to be called to the CCU charge nurse phone [phone]/ Schuyler Jama has accepted the patient in transfer. 14:18 No provider procedures requiring assistance completed. Patient transferred, IV remains jl7 in place. intact, No redness/swelling at site. Administered Medications: 13:40 Drug: morphine 4 mg Route: IVP; Site: right forearm; jl7 14:00 Follow up: Response: No adverse reaction; Pain is decreased jl7 13:40 Drug: Zofran (Ondansetron) 4 mg Route: IVP; Site: right forearm; jl7 14:00 Follow up: Response: No adverse reaction jl7 13:48 Drug: PlaVIX 300 mg Route: PO; jl7 14:20 Follow up: Response: No adverse reaction jl7 13:49 Drug: Heparin (MA-Bolus No thrombolytic) - HEParin 60 units/kg {Co-Signature: em (Abiodun Bowling RN).} Route: IVP; Site: right forearm; 14:20 Follow up: Response: No adverse reaction jl7 13:50 Drug: Heparin (MA Drip) 12 units/kg/hr - (HEParin 99027 units, D5W 500 ml) jl7 {Co-Signature: jose eduardo (Abiodun Bowling RN).} Route: IV; Rate: calculated rate; Site: right forearm; 14:20 Follow up: IV Status: Infusion continued upon transfer jl7 Outcome: 13:44 ER care complete, transfer ordered by rn 14:18 Transferred by helicopter to [facility], Transfer form completed. X-rays sent irma w/ patient. 14:18 Condition: stable 14:18 Discharge instructions given to patient, family, Instructed on the need for transfer, Demonstrated understanding of instructions. 14:28 Patient left the ED. irma Signatures: Dispatcher [employer] Abiodun Swann RN RN em Nieto, Roman, MD MD rn Leal, Jahala, RN RN jl7 Botello, Elizabeth eb Edgar Munoz RN em
[2019-12-13] MEDS ORDERED: CLOPIDOGREL 75 MG TABLET ONE (13:54)
[2019-12-13] MEDS ORDERED: HEPARIN/D5W 25,000 UNIT/500 ML BAG IV ONE (13:55)
[2019-12-13] MEDS ORDERED: HEPARIN 5000 UNIT/ML 1 ML VIAL ONE (13:55)
--- NOTE | 2019-12-13 14:37 | RAD REPORT ---
EXAM DESCRIPTION: RAD - Chest Single View - 12/13/2019 1:12 pm CLINICAL HISTORY: CHEST PAIN Chest pain. COMPARISON: Chest Pa And Lat (2 Views) dated 03/11/2019; Chest Single View dated 06/08/2017; Chest Pa And Lat (2 Views) dated 02/17/2017; CHEST PA AND LAT 2 VIEW dated 12/30/2013 FINDINGS: Portable technique limits examination quality. The lungs are grossly clear. The heart is normal in size. Hardware is present in both proximal humeri . IMPRESSION: No acute intrathoracic process suspected.
[2019-12-13 14:48] VITALS: TEMP 97.9
[2019-12-13 14:49] VITALS: O2SAT 97
[2019-12-13 14:52] VITALS: BP 153/68
--- NOTE | 2019-12-14 10:20 | EKG ---
Test Date: 2019-12-13 Test Time: 12:56:26 Easement Man: DONNA MEASUREMENT RESULTS: Intervals: Rate: 65 HI: 214 QRSD: 82 QT: 388 QTc: 403 [place]: P: 61 HI: 214 QRS: 10 T: -10 INTERPRETIVE STATEMENTS: Sinus rhythm with 1st degree AV block with fusion complexes Low voltage QRS ST & T wave abnormality, consider inferior ischemia Abnormal ECG Compared to ECG 03/24/2016 23:11:29 Fusion complex(es) now present First degree AV block now present Low QRS voltage now present ST (T wave) deviation now present Possible ischemia now present Electronically Signed On 12-14-19 10:18:57 CDT by Inder Puente
== END 2019-12-13 14:28 | disposition short-term general hospital (02) ==
LOC: ER 12:47
DX: I21.3 ST elevation (STEMI) myocardial infarction of unspecified site (principal); I10 Essential (primary) hypertension; E78.5 Hyperlipidemia, unspecified
CPT/HCPCS: 96365; 93005 ×2; 85025; 80048; 36415; 83735; 85610; 80076; 84484; 83880; 71045; 96375; 99285; J1644; J2405

== ENCOUNTER 2020-05-17 21:10 | Observation (INO) | payer OTHER ==
--- OUTSIDE RECORDS SUMMARY | 2020-05-17 21:13 | XMS REPORT | Clinical Summary ---
:1940 Author Organization [facility] [employer] Address [address] [place] [address] Care Team Providers Name Role Phone Sae Paz MD Primary Care Provider Allergies No Known Active Allergies Medications Medication Sig Dispensed Refills Start End Status Date Date ACCU-CHEK CORTEZ PLUS 2 (two) times 3 12/04/19 Active TEST STRP strip test a day. for 19 strips testing VITAMIN D2 50,000 unit TAKE ONE 11/26/19 Active capsule CAPSULE BY 19 MOUTH ONE TIME PER WEEK gabapentin (NEURONTIN) TAKE 1 12/11/19 Active 300 mg capsule CAPSULE BY [...] mg total) 20 021 by mouth daily. cinacalcet (SENSIPAR) TAKE 1 TABLET 60 tablet [...] Team Description 12/03/2019 Office Visit Endocrinology Devan Quinones, Hypercalc emia (Primary Dx); Primary hyperpa rathyroidism (HCC) 12/03/2019 Travel 06/03/2019 Office Visit Endocrinology Devan Quinones, Primary hyperparathyroidism (HCC) (Primary Dx); Hypercalcemia after 05/17/2019 Social History Tobacco Use Types Packs/Day Years Used Date Never Smoker Smokeless Tobacco: Never Used Alcohol Use Drinks/Week oz/Week Comments Yes Sex Assigned at Date Recorded Not on file Last Filed Vital Signs Vital Sign Reading Time Taken Comments Blood Pressure 125/58 12/03/2019 10:13 AM CDT Pulse 60 12/03/2019 10:13 AM CDT Temperature - - Respiratory Rate - - Oxygen Saturation - - Inhaled Oxygen Concentration - - Weight 99.8 kg (220 lb) 12/03/2019 10:13 AM CDT Height 165.1 cm (5' 5") 06/03/2019 11:12 AM ECONOMIC RESEARCH ASSISTANT Body Mass Index 36.61 06/03/2019 11:12 AM ECONOMIC RESEARCH ASSISTANT Plan of Treatment Health Maintenance Due Date Last Done Comments DIABETES: RETINAL EYE EXAM 12/13/1950 DIABETIC FOOT EXAM 12/13/1950 URINE MICROALBUMIN 12/13/1950 SHINGLES VACCINES (#1) 12/13/1991 65+ PNEUMOCOCCAL VACCINE (1 of 1 - PPSV23) 2006 INFLUENZA VACCINE 01/17/2020 Results Not on fileafter 05/17/2019 Insurance Payer Benefit Plan / Subscriber ID Effective Dates Phone Addre ss Type Group HUMANA MEDICARE HUMANA MEDICARE [id number] 2018-Present PPO PPO/PFFS/ERS MCR Advance Directives For more information, please contact: [phone] Type Date Recorded 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
--- OUTSIDE RECORDS SUMMARY | 2020-05-17 21:16 | XMS REPORT | Continuity of Care Document ---
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 CERVICAL Active [facility] RADICULITIS, 013 Medical CERVICAL DISC DISP C enter Diabetes mellitus Resolved Problem 03/21/2013 [facility] PHYLLIS Butler GERD - Resolved Problem 03/21/2013 [facility] Gastro-esophageal Ia dical reflux disease Cente r, OPINick Butler HLD - Hyperlipidemia Resolved Problem 03/21/2013 [facility] PHYLLIS Butler HTN - Hypertension Resolved Problem 03/21/2013 [facility] PHYLLIS Butler Neuropathy Resolved Problem 03/21/2013 [facility] PHYLLIS Butler Diabetes mellitus Active Problem 02/17/2016 [facility] OPID (disorder) LukeM [facility] 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 City without myelopathy (disorder) Gastroesophageal Active Problem 02/17/2016 OPID reflux disease Anitra nn, (disorder) [facility] Hyperlipidemia Active Problem 02/17/2016 O PID (disorder) LukeM [facility] Hypertensive Active Problem 02/17/2016 OPI D disorder, systemic H jennyfer arterial (disorder) [facility] Low back pain Active Problem 02/17/2016 (disorder) [facility] Lumbar radiculopathy Active Problem 02/17/2016 MH (disorder) [facility] Lumbar spondylosis Active Problem 02/17/2016 MH (disorder) [facility] Neuropathy Active Problem 02/17/2016 OPID (disorder) Brian Butler H [facility] Obesity (disorder) Active Problem 02/17/2016 [facility] Spinal stenosis of Active Problem 02/17/2016 lumbar region Memori al (disorder) [facility] Spondylolisthesis Active Problem 02/17/2016 M H (disorder) [facility] 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/17/2016 disorder (disorder) [facility] 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 M [facility]orial canal (disorder) Cit y BRACHIAL NEURITIS Active [facility] CERV DISC DIS W Active [facility] ILLNESS, UNSPECIFIED Active [facility] Medications Medication Details Route Status Patient Ordering Order Source Instructions Provider Date Lipitor Notes: (Same No Longer As: Lipitor) Active 2015 [facility] Acetaminophen 325 1 tab, PO, Q6H, Active MG / Hydrocodone PRN pain, # 90 2015 [facility] Bitartrate 10 MG tab, 0 [facility] Oral Tablet [Vader Refill(s), ] given to patient morphine 15 [...] PRN as 2016 Boy rial needed for [facility] muscle spasm, # 45 tab, 0 Refill(s) MS Contin Notes: Do not No Longer crush (Same Active 2015 [facility] as:Oramorph SR, [facility] MS Contin) Lipitor Notes: (Same No Longer As: Lipitor) Active 2015 [facility] Tylenol Notes: Do not No Longer exceed [address] [place] [address] gm/day. (Same [facility] as: Tylenol) Bisacodyl Notes: (Same No Longer As: Dulcolax, Active 2015 [facility] Correctol) (Do City Not Crush) "Do Not Crush" Docusate Notes: (Same No Longer as: Colace) (Do Active 2015 [facility] Not Crush) [facility] Simethicone Notes: (Same No Longer as: Mylicon) Active 2015 [facility] Bisacodyl Notes: (Same No Longer As: Dulcolax, Active 2015 [facility] Bisco-Lax) [facility] Baclofen Notes: (Same No Longer As: Lioresal) Active 2015 [facility] Dilaudid Notes: (Same No Longer as: Dilaudid) Active 2015 [facility] Acetaminophen 325 Notes: (Same No Longer MG / Hydrocodone as: Vader Active 2015 Memor ial Bitartrate 5 MG 325/5) Do not C ity Oral Tablet [Vader exceed 4gm/day 5/325] of acetaminophen. tradjenta tradjenta, 5 No Longer mg, 1 tab, Drug Active 2015 [facility] form: [facility] [place] [facility] Route: PO, Daily, 02/09/16 15:00:00 CDT, Duration: 30 day, Stop date: 03/10/16 9:00:00 CDT Rosuvastatin 2.5 mg, PO, Active calcium 5 MG Oral Bedtime, # 30 2015 [facility] Tablet [Crestor] tab, 0 [facility] Refill(s) Sodium Chloride 25 mL, Route: No Longer 0.9% IV IV, Start date: Active 2015 [facility] 02/09/16 [facility] 10:15:00 CDT, Duration: 30 day, Stop date: 03/10/16 10:14:00 CDT, PRN Line Flush BD Normal Saline Notes: (Same No Longer Flush as: BD Active 2015 [facility] Posiflush) [facility] Spironolactone Notes: (Same No Longer As: Aldactone) Active 2015 [facility] irbesartan Notes: (Same No Longer as:Avapro) Active 2015 [facility] Tradjenta 5 mg, Route: Inactive PO, Drug form: 2015 [facility] TAB, Daily, City Dosing Weight 89.545, kg, Start date: 02/09/16 9:00:00 CDT Furosemide 20 MG Notes: (Same No Longer Oral Tablet as: Lasix) October Active 2015 Boy rial cause GI upset. [facility] Give with food or milk. Vitamin D3 Notes: Same as No Longer : Vitamin D3 Active 2015 [facility] Amlodipine Notes: (Same No Longer as: Norvasc) Active 2015 [facility] Miralax Notes: Dissolve No Longer in 8 oz of [facility] 2015 [facility] water or juice. [facility] (Same as: Miralax) Insulin, Aspart, Notes: Roll in No Longer Human palms of hands [facility] 2015 [facility] gently; Do not City shake vigorously. (Same as: NovoLOG) "single patient use only" WASTE: F/P - Black; E - Municipal Trash Bin Stable for 28 days at room temperature. Expires in days from D ate Glucagon 1 mg, Route: No Longer IM, Drug form: [address] PDR/INJ, PRN, [facility] Dosing Weight 89.545, kg, PRN Blood Glucose Results, Start date: 02/09/16 1:52:00 CDT, Duration: 30 day, Stop date: 03/10/16 1:51:00 CDT Dextrose 50% 25 gm, 50 mL, No Longer Syringe Route: IVP, [facility] 2015 [facility] Drug Form: INJ, [facility] Dosing Weight 89.545, kg, PRN, PRN Blood Glucose Results, Start date: 02/09/16 1:52:00 CDT, Duration: 30 day, Stop date: 03/10/16 1:51:00 CDT Crestor Route: PO, Drug No Longer form: TAB, [facility] 2015 [facility] Bedtime, Dosing [facility] Weight 89.545, kg, Start date: 02/08/16 21:00:00 CDT, Duration: 30 day, Stop date: 03/08/16 21:00:00 CDT Insulin Glargine Notes: Same as No Longer 100 UNT/ML Lantus Solostar Active 2015 Memor ial Injectable PEN Do not [facility] Solution [Lantus] hold insulin without contacting prescriber "single patient use only" WASTE: F/P - Black; E - Municipal Trash Bin Stable for 28 days at room temperature. Expires in days from D ate carvedilol Notes: Give No Longer with food. Active 2015 [facility] (Same As: [facility] Coreg) Docusate Sodium 100 mg = 1 cap, Active 100 MG Oral PO, BID, 0 2015 [facility] Capsule [Colace] Refill(s) [facility] Linagliptin 5 MG 5 mg = 1 tab, No Longer Oral Tablet PO, Daily, 0 [facility] [[facility] Refill(s) [facility] 3 ML Insulin 50 units, Active Glargine 100 SUB-Q, Bedtime, 2015 [facility] orial UNT/ML Prefilled 0 Refill(s) Cit y Syringe [Lantus] glimepiride 4 mg, PO, Active Daily, 0 2015 [facility] Refill(s) [facility] Clonidine 0.1 mg = 1 tab, No Longer Hydrochloride 0.1 PO, PRN Active 2015 Memori al MG Oral Tablet Hypertension, 0 C ity Refill(s) Ancef + sodium Notes: (Same No Longer chloride 0.9% INJ As: Ancef, Active 2015 [facility] orial 100 mL Kefzol) [facility] MEDICATION WASTE Product Size: 1000 mg Product Wasted: ___ mg Docusate Sodium Notes: (Same No Longer H 100 MG Oral as: Colace) (Do Active 2015 Boy rial Capsule [Colace] Not Crush) [facility] Ofirmev 1,000 mg, Inactive Route: IV, 2015 [facility] ONCE, Dosing [facility] Weight 89, kg, Start date: 02/08/16 14:25:00 CDT, Stop date: 02/08/16 14:25:00 CDT Ondansetron Notes: (Same Inactive as: Zofran) 2015 [facility] MEDICATION City WASTE Product Size: 4 mg Product Wasted: ___ mg Flumazenil Notes: (Same Inactive as: Romazicon) 2015 [facility] Naloxone Notes: Same as Inactive Narcan 2015 [facility] Morphine Notes: (Same Inactive as:MORPhine 2015 [facility] Sulfate) [facility] Sodium Chloride 1,000 mL, Rate: Inactive 0.154 MEQ/ML 125 ml/hr, 2015 [facility] Injectable Infuse over: 8 City Solution hr, Route: IV, Dosing Weight 89.545 kg, Total Volume: 1,000, Start date: 02/08/16 13:22:00 CDT, Duration: 30 day, Stop date: 03/09/16 13:21:00 CDT Morphine Notes: Dose: No Longer Delay: Active 2015 [facility] rate: 4hr limit: (Same as:Abby) Naloxone Notes: Same as No Longer Narcan Active 2015 [facility] Acetaminophen 325 Notes: Do not No Longer MG / Hydrocodone exceed 4gm/day Active 2015 [facility] Bitartrate 10 MG of [facility] Oral Tablet [Vader acetaminophen. 10/325] (Same as: Vader 325/10) Zofran Notes: (Same No Longer as: Zofran) Active 2015 [facility] MEDICATION [facility] WASTE Product Size: 4 mg Product Wasted: ___ mg Robaxin Notes: (Same No Longer as:Robaxin) Active 2015 [facility] Lactated Ringers 1,000 mL, Rate: No Longer 02/07 1,000 mL 75 ml/hr, Active 2015 [facility] Infuse over: [facility] 13.3 hr, Route: IV, Dosing Weight 89.545 kg, Total Volume: 1,000, Start date: 02/08/16 12:52:00 CDT, Duration: 30 day, Stop date: 03/09/16 12:51:00 CDT Flexeril Notes: (Same No Longer As: Flexeril) Active 2015 [facility] Diphenhydramine Notes: (Same No Longer H as: Benadryl) Active 2015 [facility] phenol Notes: No Longer Chloraseptic Active 2015 [facility] [place] (Same as: [facility] Chloraseptic, Sore Throat [place]) WASTE: F/P - Black; E - Municipal Trash Bin ceFAZolin Notes: Same as: No Longer Ancef Active 2015 [facility] carvedilol 12.5 mg 12.5 mg = 1 Active H oral tablet tab, PO, Q12H, 2015 [facility] Acetaminophen 325 Notes: Same as No Longer 01/17 MG / Hydrocodone Vader 325-7.5mg Active 2015 [facility] Bitartrate 7.5 MG Do not exceed [facility] Oral Tablet [Vader 4gm/day of 7.5/325] acetaminophen. sodium phosphate + 15 mmol, 5 mL, No Longer sodium chloride Route: IVPB, Active 2015 [facility] orial 0.9% INJ 250 mL PRN, Dosing City Weight 97.983, kg, PRN Abnormal Lab Result, Start date: 01/17/16 16:42:00 CDT, Stop date: 02/16/16 16:41:00 CDT heparin sodium, Notes: porcine No Longer porcine 2500 heparin Active 2015 [facility] UNT/ML Injectable [facility] Solution gabapentin 300 MG Notes: (Same No Longer Oral Capsule as: Neurontin) Active 2015 Boy rial [facility] Insulin, Aspart, Notes: Roll in No Longer Human palms of hands Active 2015 [facility] gently; Do not [facility] shake vigorously. (Same as: NovoLOG) "single patient use only" WASTE: F/P - Black; E - Municipal Trash Bin Stable for 28 days at room temperature. Expires in days from D ate Hydralazine Notes: (Same No Longer as: Apresoline) Active 2015 [facility] Push over 5 [facility] minutes Ativan Notes: (Same Inactive as: Ativan) 2015 [facility] Acetaminophen 325 1 tab, Route: No Longer MG / Hydrocodone PO, Drug Form: Active 2015 [facility] Bitartrate 10 MG TAB, Dosing Cit y Oral Tablet [Vader Weight 97.983, 10/325] kg, Q4H, Start date: 01/13/16 15:05:00 CDT, Stop date: 02/12/16 16:00:00 CDT Miralax Notes: Dissolve No Longer in 8 oz of Active 2015 [facility] water or juice. [facility] (Same as: Miralax) Lorazepam 0.5 mg, Route: Inactive IVP, Drug form: 2015 [facility] INJ, ONCE, [facility] Dosing Weight 97.983, kg, PRN Anxiety, Priority: NOW, Start date: 01/12/16 10:44:00 CDT Tradjenta 5 mg, Route: Inactive PO, Drug form: 2015 [facility] TAB, Daily, [facility] Dosing Weight 97.983, kg, Start date: 01/12/16 9:00:00 CDT irbesartan Notes: (Same No Longer as:Avapro) Active 2015 [facility] Furosemide 20 MG Notes: (Same No Longer Oral Tablet as: Lasix) October Active 2015 Boy rial cause GI upset. [facility] Give with food or milk. glimepiride Notes: (Same No Longer as: Amaryl) Active 2015 [facility] Tradjenta 5 mg Tradjenta 5 mg No Longer (Patient's own (Patient's own Active 2015 [facility] morial medicine) medicine), 1 [facility] tab, Drug form: MISC, Route: PO, Daily, 01/12/16 9:00:00 CDT, Duration: 30 day, Stop date: 02/10/16 9:00:00 CDT Aspirin 81 MG Notes: Do not No Longer Enteric Coated crush or chew. Active 2015 Ia morial Tablet (Same As: [facility] Ecotrin) Amlodipine Notes: (Same No Longer as: Norvasc) Active 2015 [facility] Docusate Notes: (Same No Longer as: Colace) (Do Active 2015 [facility] Not Crush) [facility] Spironolactone Notes: (Same No Longer As: Aldactone) Active 2015 [facility] Ativan Notes: (Same Inactive as: Ativan) 2015 [facility] Sodium Chloride 25 mL, Route: No Longer 0.9% IV IV, Start date: Active 2015 [facility] 01/12/16 [facility] 8:19:00 CDT, Duration: 30 day, Stop date: 02/11/16 8:18:00 CDT, PRN Line Flush BD Normal Saline Notes: (Same No Longer Flush as: BD Active 2015 [facility] Posiflush) [facility] Insulin, Aspart, Notes: Roll in No Longer Human palms of hands Active 2015 [facility] gently; Do not [facility] shake vigorously. (Same as: NovoLOG) "single patient use only" WASTE: F/P - Black; E - Municipal Trash Bin Stable for 28 days at room temperature. Expires in days from D ate Dextrose 50% 12.5 gm, 25 mL, No Longer H Syringe Route: IVP, [facility] 2015 [facility] Drug Form: INJ, [facility] Dosing Weight 97.983, kg, PRN, PRN Blood Glucose Results, Start date: 01/11/16 22:38:00 CDT, Duration: 30 day, Stop date: 02/10/16 22:37:00 CDT Glucagon 1 mg, Route: No Longer IM, Drug form: [facility] 2015 [facility] PDR/INJ, PRN, [facility] Dosing Weight 97.983, kg, PRN Blood Glucose Results, Start date: 01/11/16 22:38:00 CDT, Duration: 30 day, Stop date: 02/10/16 22:37:00 CDT Lipitor Notes: (Same No Longer As: Lipitor) Active 2015 [facility] Lantus Notes: Same as No Longer Lantus Solostar Active 2015 [facility] PEN Do not City hold insulin without contacting prescriber "single patient use only" WASTE: F/P - Black; E - Municipal Trash Bin Stable for 28 days at room temperature. Expires in days from D ate carvedilol Notes: Give No Longer with food. Active 2015 [facility] (Same As: [facility] Coreg) Crestor Route: PO, Drug Inactive form: TAB, 2015 [facility] Bedtime, Dosing [facility] Weight 97.983, kg, Start date: 01/11/16 21:00:00 CDT, Duration: 30 day, Stop date: 02/09/16 21:00:00 CDT Acetaminophen 325 Notes: Do not No Longer MG / Hydrocodone exceed 4gm/day Active 2015 [facility] Bitartrate 10 MG of [facility] Oral Tablet [Vader acetaminophen. 10/325] (Same as: Vader 325/10) Enoxaparin Notes: (Same No Longer as: Lovenox) Active 2015 [facility] Clonidine Notes: (Same No Longer Hydrochloride 0.1 As: Catapres) Active 2015 [facility] MG Oral Tablet [facility] Sodium Chloride 1,000 mL, Rate: No Longer 0.154 MEQ/ML 45 ml/hr, Active 2015 [facility] Injectable Infuse over: [facility] Solution 22.2 hr, Route: IV, Dosing Weight 97.983 kg, Total Volume: 1,000, Start date: 01/11/16 17:53:00 CDT, Duration: 30 day, Stop date: 02/10/16 17:52:00 CDT Saline Flush 0.9% Notes: (Same No Longer as: BD Active 2015 [facility] Posiflush) [facility] Morphine Notes: (Same No Longer as:MORPhine Active 2015 [facility] Sulfate) [facility] Ondansetron Notes: (Same No Longer as: Zofran) Active 2015 [facility] MEDICATION City WASTE Product Size: 4 mg Product Wasted: ___ mg Acetaminophen 100.4 F, Start Inactive H date: 01/11/162015 [facility] 17:53:00 CDT, City Duration: 30 day, Stop date: 02/10/16 17:52:00 CDT irbesartan 300 mg 300 mg = 1 tab, Active oral tablet PO, Daily, # 30 2015 Boy rial tab, 0 City Refill(s) Co Q-10 100 mg 200 mg = 2 cap, Active H oral capsule PO, Daily, 0 2015 Memori al Refill(s) [facility] Aspirin 81 MG 81 mg = 1 tab, Active Enteric Coated PO, Daily, # 90 2015 [facility] Tablet tab, 3 City Refill(s) Vitamin D3 2,000 IntlUnit, Active PO, Daily, 0 2015 [facility] Refill(s) [facility] Rosuvastatin See Active calcium 5 MG Oral Instructions, 1 2015 [facility] Tablet [Crestor] tab PO Bedtime [facility] tuesdays and fridays, 0 Refill(s) spironolactone 25 25 mg = 1 tab, Active mg oral tablet PO, Daily, # 30 2015 em[facility] tab, 3 [facility] Refill(s) Docusate Sodium 300 mg = 3 cap, Active 100 MG Oral PO, Daily, 0 [facility] Capsule [Colace] Refill(s) [facility] Furosemide 20 MG 20 mg = 1 tab, Active Oral Tablet PO, Daily, # 30 2015 Boy rial tab, 0 [facility] Refill(s) Linagliptin 5 MG 5 mg = 1 tab, Active H Oral Tablet PO, Daily, # 30 2015 Boy rial [Tradjenta] tab, 3 [facility] Refill(s) Acetaminophen 325 2 tabs, PO, Active MG / Hydrocodone Q6H, 0 2015 [facility] Bitartrate 10 MG Refill(s) [facility] Oral Tablet [Vader 10/325] Amlodipine 10 mg, PO, Active Daily, 0 2015 [facility] Refill(s) [facility] Pepcid 20 mg oral 20 mg, 1 tab, PO Active [place] tablet PO, BID, 60 2012 Medical tab, Center Substitution Allowed Vader 10/325 oral 1-2 tab, PO, PO Active [...] 10 unit, 0.1 SUB-Q No Longer Young [facility] mL, Route: Active 2012 Medical SUB-Q, Drug Center form: INJ, ONCE, Dosing Weight 91.818, kg, Start date: 10/05/12 18:46:00, Stop date: 10/05/12 18:46:00 insulin aspart 3 unit, 0.03 SUB-Q No Longer [facility] mL, Route: Active 2012 Medical SUB-Q, [...] unit, 0.05 SUB-Q No Longer [facility] 10/05/ [facility] mL, Route: Active 2012 Medical SUB-Q, Drug Center form: SOLN, TID-Before Meals, Dosing Weight 91.818, kg, Start date: 10/05/12 11:30:00, Duration: 30 day, Stop date: 11/04/12 7:30:00 Ativan 1 mg, 1 tab, PO No Longer [place] Route: PO, Drug Active 2012 Medical form: TAB, Center Bedtime, Dosing Weight 91.818, kg, PRN Insomnia, Start date: 10/05/12 10:38:00, Duration: 30 day, Stop date: 11/04/12 10:37:00 Valium 5 mg, 1 tab, PO No Longer Dionisio [facility] Route: PO, Drug Active 2012 Medical form: TAB, Center ONCE, Dosing Weight 91.818, kg, PRN Anxiety, Start date: 10/05/12 4:41:00, Stop date: 11/04/12 4:40:00 dexamethasone 4 mg, 1 mL, IVP No Longer Dionisio [facility] Route: IVP, Active 2012 Medical Drug form: INJ, Center Q6H, Dosing Weight 91.818, kg, Start date: 10/05/12 0:00:00, Duration: 30 day, Stop date: 11/03/12 18:00:00 heparin 5,000 unit, 1 SUB-Q No Longer Deniz [facility] mL, Route: Active 2012 Medical [...] 12 unit, 0.12 SUB-Q No Longer [facility] mL, Route: Active 2012 Medical SUB-Q, Drug Center form: SOLN, TID-Before Meals, Dosing Weight 91.818, kg, PRN Blood Glucose Results, Start date: 10/04/12 19:54:00, Duration: 30 day, Stop date: 11/03/12 19:53:00 glucagon 1 mg, Route: IM No Longer [place] IM, Drug form: Active 2012 Medical PDR/INJ, PRN, Center Dosing Weight 91.818, kg, PRN Blood Glucose Results, Start date: 10/04/12 19:54:00, Duration: 30 day, Stop date: 11/03/12 19:53:00 Dextrose 50% 25 gm, 50 mL, IVP No Longer [facility] Syringe Route: IVP, Active 2012 Medical Drug Form: INJ, Center Dosing Weight 91.818, kg, PRN, PRN Blood Glucose Results, Start date: 10/04/12 19:54:00, Duration: 30 day, Stop date: 11/03/12 19:53:00 dexamethasone + 10 mg, 1 mL, IVP No Longer Dionisio [facility] Sodium Chloride Route: IVP, Active 2012 Medi montse 0.9% IV 50 mL Drug form: INJ, Ce nter ONCE, Dosing Weight 91.818, kg, Start date: 10/04/12 19:14:00, Stop date: 10/04/12 19:14:00 magnesium sulfate 2 gm, 50 mL, IVPB No Longer [facility] Route: IVPB, Active 2012 Medical Drug form: INJ, Center Q2H, Dosing Weight 91.818, kg, Total dose = 4 gm, Start date: 10/04/12 16:00:00, Duration: 2 doses or times, Stop date: 10/04/12 18:00:00 Ativan 1 mg, 0.5 mL, IVP No Longer Michael [facility] Route: IVP, Active 2012 Medical Drug form: INJ, Center ONCE, Dosing Weight 91.818, kg, PRN Anxiety, Start date: 10/04/12 11:52:00 acetaminophen-hydr 1 tab, Route: PO No Longer Michael 10/04 [facility] ocodone 325 mg-10 PO, Drug Form: [...] 100 mg, 1 tab, PO No Longer [place] Route: PO, Drug Active 2012 Medical form: TAB, Center Daily, Dosing Weight 91.818, kg, Start date: 10/04/12 9:00:00, Duration: 30 day, Stop date: 11/02/12 9:00:00 amLODipine 10 mg, 1 tab, PO No Longer [place] Route: PO, Drug Active 2012 [...] 17 gm, 1 pkt, PO No Longer [place] 10/04[facility] glycol 3350 Route: PO, Drug Active 2012 Medi montse form: PWDR, Center Daily, Dosing Weight 91.818, kg, Start date: 10/04/12 9:00:00, Duration: 30 day, Stop date: 11/02/12 9:00:00 Zofran 4 mg oral 4 mg, 1 tab, PO Active [place] 10/04[facility] [place] tablet PO, Q8H, 30 2012 Medical tab, Center Substitution Allowed docusate sodium 100 mg, 1 cap, PO Active [place] 10/04[facility] [place] 100 mg oral PO, Q12H, PRN, 2012 Medic al capsule 20 cap, as Center needed for constipation, Substitution Allowed, CAP tramadol 50 mg 1 - 2 tab, PO, PO Active [place] 10/04[facility] [place] oral tablet Q6H, PRN, 112 2012 Medica l tab, Pain, Center Substitution Allowed, TAB cyclobenzaprine 10 10 mg, 1 tab, PO Active [place] mg oral tablet PO, TID, PRN, 2012 Med ical 42 tab, Spasm, Center Substitution Allowed, TAB olmesartan 40 mg 40 mg, 1 tab, PO Active [place] oral tablet PO, Daily, 2012 Medica l tab, Center Substitution Allowed, TAB Dilaudid 0.3 mg, 0.15 IV No Longer [place] mL, Route: IV, Active 2012 Medical Drug form: INJ, Center Q3H, Dosing Weight 91.818, kg, PRN Pain Score 7-10, Start date: 10/04/12 7:57:00, Duration: 30 day, Stop date: 11/03/12 7:56:00 Benadryl 25 mg, 0.5 mL, IVP No Longer [facility] [place] Route: IVP, Active 2012 Medical Drug form: INJ, Center ONCE, Dosing Weight 91.818, kg, PRN Insomnia, Start date: 10/04/12 3:22:00 labetalol 10 mg, 2 mL, IVP No Longer [place] Route: IVP, Active 2012 Medical Drug form: INJ, Center Q15Min, Dosing Weight 91.818, kg, PRN Hypertension, Start date: 10/04/12 3:05:00, Duration: 30 day, Stop date: 11/03/12 3:04:00 hydrALAZINE 10 mg, 0.5 mL, IV No Longer [place] [facility] Route: IV, Drug Active 2012 Medical form: INJ, Q6H, Center Dosing Weight 91.818, kg, PRN Elevated BP, Start date: 10/04/12 0:16:00, Duration: 30 day, Stop date: 11/03/12 0:15:00 clonidine 0.1 mg 0.1 mg, 1 tab, PO No Longer [place] 10/04 [place] oral tablet Route: PO, Drug Active 2012 [...] Sodium 2 gm, Route: IVPB No Longer [place] Chloride 0.9% IV IVPB, Drug Active [...] 10 mg, 1 tab, PO No Longer [place] Route: PO, Drug Active 2012 Medical form: TAB, TID, Center Dosing Weight 91.818, kg, PRN Spasm, Start date: 10/03/12 18:54:00, Duration: 30 day, Stop date: 11/02/12 18:53:00 Dextrose 50% 12.5 gm, 25 mL, IVP No Longer [facility] [place] Syringe Route: IVP, Active 2012 Medical Drug Form: INJ, Center Dosing Weight 91.818, kg, PRN, PRN Abnormal Lab Result, Start date: 10/03/12 18:18:00, Duration: 30 day, Stop date: 11/02/12 18:17:00 insulin regular 5 unit, 0.05 SUB-Q No Longer [place] [facility] [place] 100 units/mL human mL, Route: Active 2012 Me dical recombinant SUB-Q, Drug Center form: SOLN, PRN, Dosing Weight 91.818, kg, PRN Abnormal Lab Result, Start date: 10/03/12 18:18:00, Duration: 30 day, Stop date: 11/02/12 18:17:00 hydrALAZINE 20 mg, 1 mL, IVP No Longer [place] [place] Route: IVP, Active 2012 Medical Drug form: INJ, Center Q4H, Dosing Weight 91.818, kg, PRN Other -See Comment, Start date: 10/03/12 18:14:00, Duration: 30 day, Stop date: 11/02/12 18:13:00, SBP > 150 mmHg labetalol 20 mg, 4 mL, IVP No Longer [place] Route: IVP, Active 2012 Medical Drug form: INJ, Center Q15Min, Dosing Weight 91.818, kg, PRN Elevated BP, Start date: 10/03/12 18:14:00, Duration: 3 doses or times, Stop date: 10/04/12 0:00:00, SBP > 150 mmHg naloxone 0.2 mg, 0.5 mL, IVP No Longer [place] [id number] [place] Route: IVP, Active 2012 Medical [...] 0.04 mg, 0.1 IVP No Longer [place] mL, Route: IVP, Active 2012 Medical Drug [...] 5 mg, 1 mL, IVP No Longer [facility] Pa[place] Route: IVP, Active 2012 Medical Drug form: INJ, Center Q5Min, Dosing Weight 91.818, kg, PRN Elevated BP, Start date: 10/03/12 15:54:00, Duration: 5 doses or times, Stop date: 10/04/12 0:00:00 HYDROmorphone 15 mg, 30 mL, IV No Longer [place]o 0.5mg/mL BRUSHER HAND Route: IV, BRUSHER HAND Active 2012 Medi montse (15mg/30 mL) 15 mg Dose: 0.3 mg, Center BRUSHER HAND Lockout: 15 minutes, 4 Hour Limit (In MG): 4.8, Drug Form: INJ, Continuous, Start date: 10/03/12 12:00:00, Stop date: 11/02/12 11:59:00 Saline Flush 0.9% 5 ml, Route: IVP No Longer [place] 10/03[facility] [place] IVP, Drug Form: 2012 Medical INJ, Dosing Center Weight 91.818, kg, PRN, PRN Line Flush, Start date: 10/03/12 11:42:00, Duration: 30 day, Stop date: 11/02/12 11:41:00 ondansetron 4 mg, 2 mL, IVP No Longer [place] [id number] [place] Route: IVP, Active 2012 Medical [...] acetaminophen-hydr 1 tab, Route: PO No Longer [place] 10/03 [facility] ocodone 325 mg-10 PO, Drug Form: Active 2012 Medical mg oral tablet TAB, Dosing Dona nur Weight 91.818, kg, Q4H, PRN Pain Score 4-6, Start date: 10/03/12 11:42:00, Duration: 30 day, Stop date: 11/02/12 11:41:00 amLODipine Substitution Active [facility] Allowed 2012 Medical Center NS + KCL 20mEq/L 1,000 mL, Rate: IV No Longer [place] 10/03 [place] 1000ml (Premix) 70 ml/hr, Active 2012 Medica l 1,000 mL Infuse over: Center 14.3 hr, Route: IV, kg, Total Volume: 1,000, Start date: 10/03/12 5:00:00, Duration: 1 day, Stop date: 10/04/12 4:59:00 cefazolin 2 gm, 100 mL, IVPB No Longer [place] as Route: IVPB, Active 2012 Medical Drug form: INJ, Center PRE OP, Start date: 10/03/12 5:00:00, Duration: 1 day, Stop date: 10/04/12 4:59:00 Vicodin HP 10 PO, PRN, PO Active [facility] mg-300 mg oral Substitution 2012 Medi montse tablet Allowed, Center Maintenance Dulcolax Laxative 1 supp, NV, NV Active [facility] Daily, PRN, 5 2012 Medical supp, Center constipation, Substitution Allowed, SUPP clonidine 0.1 mg PO, QID, prn PO Active [place] oral tablet bp>160, 2012 Medical Substitution Center [id number] Benicar HCT 12.5 1 tab, PO, PO Active [place] mg-40 mg oral Daily, 30 tab, 2012 Med ical tablet Substitution Center Allowed, Maintenance, TAB carvedilol 25 mg 25 mg, 1 tab, PO Active [place] oral tablet PO, Q12H, 60 2012 Medical tab, Center Substitution Allowed, TAB Januvia 100 mg 100 mg, 1 tab, PO Active Deniz [facility] oral tablet PO, Daily, 2012 Medica l tab, Center Substitution Allowed, TAB Lantus 22 unit, SUB-Q, SUB-Q Active [facility] Bedtime, 2012 Medical Substitution Center Allowed glimepiride 4 mg 8 mg, 2 tab, PO Active [facility] oral tablet PO, Daily, 2012 Medical Substitution Center Allowed Allergies, Adverse Reactions, Alerts Substance Category Reaction Severity Reaction Status Date Comments S ource type Reported NKFA Assertion Drug Active allergy [facility] Immunizations No Data Provided for This Section Results Order Name Results Value Reference Date Interpretation Comments Ella rce Range CHEM PANEL Magnesium 1.8 1.8 - 2.4 01/16 Lvl [facility] CHEM PANEL Phosphorus 2.4 2.5 - 4.5 01/16 [facility] CHEM PANEL CO2 30 24 - 32 01/16 [facility] CHEM PANEL Glucose Lvl 240 70 - 99 01/16 [facility] CHEM PANEL Creatinine 0.80 0.50 - 01/16 Lvl 1.40 [facility] CHEM PANEL BUN 20 7 - 22 01/16 [facility] CHEM PANEL eGFR 73 01/16 [facility] Comment: [facility] eGFR is City calculated using the CKD-EPI [...] Albumin Lvl 2.8 3.5 - 5.0 01/16 [facility] CHEM PANEL Calcium Lvl 10.5 8.5 - 10.5 08/ /2015 [facility] CHEM PANEL Potassium 4.3 3.5 - 5.1 08/ Lvl /2016 [facility] CHEM PANEL Chloride Lvl 107 95 - 109 08/ /2015 [facility] CHEM PANEL Sodium Lvl 143 135 - 145 08/ /2015 [facility] CHEM PANEL AGAP 10.3 10.0 - 08/ MH 20.0 /2015 [facility] HEMATOLOGY Lymphocytes 1.3 1.0 - 5.5 08/ MH # /2016 [facility] HEMATOLOGY Segs-Bands # 4.4 1.5 - 8.1 08/ MH /2015 [facility] HEMATOLOGY Eosinophils 0.3 0.0 - 0.5 08/ # /2015 [facility] HEMATOLOGY Monocytes # 0.6 0.0 - 0.8 08/ /2015 [facility] HEMATOLOGY Basophils 0.5 0.0 - 1.0 08/ /2015 [facility] HEMATOLOGY Eosinophils 4.9 0.0 - 4.0 08/ /2015 [facility] HEMATOLOGY Monocytes 9.1 2.0 - 12.0 08/ MH /2015 [facility] HEMATOLOGY Lymphocytes 18.9 20.0 - 08 MH 40.0 /2015 [facility] HEMATOLOGY Segs 66.6 45.0 - 08/ MH 75.0 /2015 [facility] HEMATOLOGY MPV 9.4 7.4 - 10.4 08/ /2015 [facility] HEMATOLOGY Platelet 168 133 - 450 08/ /2015 [facility] HEMATOLOGY RDW 13.4 11.5 - 08 MH 14.5 /2015 [facility] HEMATOLOGY MCHC 32.8 32.0 - 08 MH 36.0 /2015 [facility] HEMATOLOGY MCH 30.7 27.0 - 08 31.0 /2015 [facility] HEMATOLOGY MCV 93.6 80.0 - 08/ MH 98.0 /2015 [facility] HEMATOLOGY WBC 6.6 3.7 - 10.4 08/ /2015 [facility] HEMATOLOGY Hct 41.0 36.0 - 08 48.0 /2015 [facility] HEMATOLOGY Hgb 13.4 12.0 - 08 16.0 /2015 [facility] HEMATOLOGY RBC 4.38 4.20 - 08 MH 5.40 /2015 [facility] SPECIAL Hgb A1C 10.3 <=5.6 % 08/ CHEMISTRY /2015 [facility] CHEM PANEL eGFR 81 07/30 Result Comment: [facility] eGFR is City calculated using the CKD-EPI [...] 0.50 - 07 MH Lvl 1.40 /2015 [facility] CHEM PANEL AST 7 0 - 37 01/14 [facility] CHEM PANEL Total 5.0 6.4 - 8.4 01/14 MH Protein [facility] CHEM PANEL Alk Phos 73 39 - 136 01/14 [facility] CHEM PANEL ALT 29 0 - 65 01/14 [facility] CHEM PANEL Bili Total 0.7 0.2 - 1.3 01/14 [facility] CHEM PANEL Albumin Lvl 2.7 3.5 - 5.0 01/14 [facility] CHEM PANEL AGAP 10.9 10.0 - 07 MH 20.0 /2015 [facility] CHEM PANEL Calcium Lvl 10.0 8.5 - 10.5 01/14 [facility] CHEM PANEL Glucose Lvl 208 70 - 99 01/14 [facility] CHEM PANEL Potassium 3.9 3.5 - 5.1 01/14 MH Lvl /2015 [facility] CHEM PANEL BUN 20 7 - 22 01/14 [facility] CHEM PANEL Sodium Lvl 145 135 - 145 01/14 [facility] CHEM PANEL Chloride Lvl 109 95 - 109 01/14 [facility] CHEM PANEL CO2 29 24 - 32 01/14 [facility] CHEM PANEL B/C Ratio 27 6 - 25 01/14 [facility] CHEM PANEL A/G Ratio 1.2 0.7 - 1.6 01/14 [facility] CHEM PANEL Globulin 2.3 2.0 - 4.0 01/14 [facility] HEMATOLOGY Monocytes 11.7 2.0 - 12.0 01/14 [facility] HEMATOLOGY Segs-Bands # 4.9 1.5 - 8.1 01/14 [facility] HEMATOLOGY Basophils 0.4 0.0 - 1.0 01/14 [facility] HEMATOLOGY Lymphocytes 1.3 1.0 - 5.5 01/14 MH # /2015 [facility] HEMATOLOGY Macrocyte 1+ None Seen 01/14 MH *ABN* /2015 [facility] (01/15/16 4:17 AM) [facility] HEMATOLOGY Segs 67.7 45.0 - 01/14 MH 75.0 [facility] HEMATOLOGY Lymphocytes 17.4 20.0 - 01/14 MH 40.0 [facility] HEMATOLOGY Eosinophils 2.8 0.0 - 4.0 01/14 [facility] HEMATOLOGY Basophils # 0.0 0.0 - 0.2 01/14 [facility] HEMATOLOGY Eosinophils 0.2 0.0 - 0.5 01/14 MH # /2015 [facility] HEMATOLOGY Monocytes # 0.9 0.0 - 0.8 01/14 [facility] HEMATOLOGY Platelet 149 133 - 450 01/14 [facility] HEMATOLOGY WBC 7.3 3.7 - 10.4 01/14 [facility] HEMATOLOGY Hct 39.8 36.0 - 01/14 MH 48.0 [facility] HEMATOLOGY Hgb 13.0 12.0 - 01/14 MH 16.0 [facility] HEMATOLOGY RBC 4.23 4.20 - 01/14 MH 5.40 /2015 [facility] HEMATOLOGY MCHC 32.8 32.0 - 01/14 MH 36.0 [facility] HEMATOLOGY MCV 94.0 80.0 - 01/14 MH 98.0 [facility] HEMATOLOGY MCH 30.8 27.0 - 01/14 MH 31.0 [facility] HEMATOLOGY RDW 13.5 11.5 - 01/14 MH 14.5 [facility] HEMATOLOGY MPV 9.6 7.4 - 10.4 01/14 [facility] CHEM PANEL Glucose Lvl 133 70 - 99 01/13 [facility] CHEM PANEL BUN 15 7 - 22 01/13 [facility] CHEM PANEL AGAP 11.7 10.0 - 01/13 MH 20.0 [facility] CHEM PANEL Calcium Lvl 10.1 8.5 - 10.5 01/13 [facility] CHEM PANEL Potassium 3.7 3.5 - 5.1 01/13 MH Lvl /2015 [facility] CHEM PANEL Sodium Lvl 145 135 - 145 01/13 [facility] CHEM PANEL CO2 28 24 - 32 01/13 [facility] CHEM PANEL Chloride Lvl 109 95 - 109 01/13 [facility] CHEM PANEL Creatinine 0.70 0.50 - 01/13 MH Lvl 1.40 [facility] CHEM PANEL eGFR 86 01/13 Result Comment: [facility] eGFR is City calculated using the CKD-EPI [...] PANEL Total 4.9 6.4 - 8.4 01/12 [facility] CHEM PANEL Alk Phos 60 39 - 136 01/12 [facility] CHEM PANEL Bili Total 0.4 0.2 - 1.3 01/12 [facility] CHEM PANEL ALT 22 0 - 65 01/12 [facility] CHEM PANEL AST 12 0 - 37 01/12 [facility] CHEM PANEL Albumin Lvl 2.7 3.5 - 5.0 01/12 [facility] CHEM PANEL Globulin 2.2 2.0 - 4.0 01/12 [facility] CHEM PANEL A/G Ratio 1.2 0.7 - 1.6 01/12 /2015 [facility] CHEM PANEL B/C Ratio 23 6 - 25 01/12 /2015 [facility] HEMATOLOGY RBC 4.18 4.20 - 01/12 MH 5.40 /2015 [facility] HEMATOLOGY WBC 6.7 3.7 - 10.4 01/12 [facility] HEMATOLOGY MPV 9.3 7.4 - 10.4 01/12 [facility] HEMATOLOGY Platelet 159 133 - 450 01/12 /2015 [facility] HEMATOLOGY RDW 12.8 11.5 - 01/12 MH 14.5 /2015 [facility] HEMATOLOGY MCH 30.7 27.0 - 01/12 MH 31.0 [facility] HEMATOLOGY MCV 93.8 80.0 - 01/12 MH 98.0 /2015 [facility] HEMATOLOGY Hct 39.2 36.0 - 01/12 MH 48.0 /2015 [facility] HEMATOLOGY Hgb 12.8 12.0 - 01/12 MH 16.0 [facility] HEMATOLOGY MCHC 32.8 32.0 - 01/12 MH 36.0 [facility] HEMATOLOGY Lymphocytes 21.4 20.0 - 01/12 MH 40.0 /2015 [facility] HEMATOLOGY Segs 64.1 45.0 - 01/12 MH 75.0 [facility] HEMATOLOGY Eosinophils 3.1 0.0 - 4.0 01/12 [facility] HEMATOLOGY Monocytes 10.9 2.0 - 12.0 01/12 [facility] HEMATOLOGY Basophils 0.5 0.0 - 1.0 01/12 [facility] HEMATOLOGY Basophils # 0.0 0.0 - 0.2 01/12 [facility] HEMATOLOGY Eosinophils 0.2 0.0 - 0.5 01/12 /2015 [facility] HEMATOLOGY Monocytes # 0.7 0.0 - 0.8 01/12 [facility] HEMATOLOGY Lymphocytes 1.4 1.0 - 5.5 01/12 [facility] HEMATOLOGY Segs-Bands # 4.3 1.5 - 8.1 01/12 [facility] CHEM PANEL Magnesium 1.8 1.8 - 2.4 01/10 Lvl /2015 [facility] CHEM PANEL Phosphorus 2.0 2.5 - 4.5 01/10 [facility] HEMATOLOGY Basophils # 0.0 0.0 - 0.2 01/10 /2015 [facility] HEMATOLOGY Macrocyte 1+ None Seen 01/10 *ABN* /2015 [facility] (01/11/16 6:48 PM) [facility] HEMATOLOGY INR 0.99 0.85 - 01/10 1.17 /2015 [facility] HEMATOLOGY PTT 23.5 22.9 - 01/10 35.8 /2015 [facility] HEMATOLOGY PT 13.4 12.0 - 01/10 14.7 /2015 [facility] BEDSIDE Comment1 Notify 10/06 NA [place] GLUCOSE RN/ /2012 [facility] TESTING [place] BEDSIDE Gluc POC 308 70 - 99 10/06 [place] <sup>1</sup>I [facility] Data: [place] Upper Reportable Limit: 200 mg/dL. BEDSIDE Comment1 Notify 10/06 NA [facility] GLUCOSE RN/ /2012 [facility] TESTING [place] BEDSIDE Gluc POC 159 70 - 99 10/06 [place] <sup>2</sup>I [facility] Data: [place] Upper Reportable Limit: 200 mg/dL. CHEMISTRY AGAP 14.3 10.0 - 10/06 Normal [facility] 20.0 [facility] CHEMISTRY eGFR 75 10/06 NA [...] Potassium 4.3 3.5 - 5.1 10/06 Normal [facility] Center CHEMISTRY Glucose Lvl 262 70 - 99 10/06 [place] <sup>6</sup>I [place] nterpretive Medical Data: Adult Center reference range values reflect the clinical guidelines
of the [place] [employer]. CHEMISTRY Creatinine 0.8 0.5 - 1.4 10/06 Normal [facility] Center CHEMISTRY BUN 20 7 - 22 10/06 Normal [facility] HEMATOLOGY Hgb 14.0 12.0 - 10/06 Normal [facility] 16.0 /2012 [facility] HEMATOLOGY Hct 42.5 36.0 - 10/06 Normal [facility] 48.0 [facility] HEMATOLOGY MCV 92.3 81.0 - 10/06 Normal [facility] 99.0 [facility] Center HEMATOLOGY MCH 30.5 27.0 - 10/06 Normal [place] 31.0 /2012 [facility] HEMATOLOGY MCHC 33.0 32.0 - 10/06 Normal [facility] 36.0 /2012 [facility] Center HEMATOLOGY RDW 14.6 11.5 - 10/06 HI [facility] 14.5 /2012 [facility] Center HEMATOLOGY Platelet 215 133 - 450 10/06 Normal [facility] HEMATOLOGY MPV 10.0 7.4 - 10.4 10/06 Normal [facility] HEMATOLOGY RBC 4.60 4.20 - 10/06 Normal [facility] 5.40 /2012 Medical Center HEMATOLOGY WBC 13.0 3.7 - 10.4 10/06 [place] [facility] BEDSIDE Comment1 Notify 10/06 NA [facility] GLUCOSE RN/MD /2012 Medical TESTING Center BEDSIDE Gluc POC 244 70 - 99 10/06 HI <sup>3</sup>I [facility] GLUCOSE [facility] nterpretive Medical TESTING Data: Center Upper Reportable Limit: 200 mg/dL. CHEMISTRY Magnesium 2.0 1.8 - 2.4 10/05 Normal [facility] Lvl Medical Center Microbiolog Culture: 10/04 [facility] y Urine Medical Center URINALYSIS UA 0.1 - 1.0 10/04 NA [facility] Urobilinogen /2012 [facility] URINALYSIS UA Color Yellow Yellow 10/04 NA [facility] Medical (10/04/2012 01:52:38) Ce nter URINALYSIS UA Bacteria Occasional /HPF None Seen 10/04 NA [facility] Medical (10/04/2012 01:52:38) Ce nter URINALYSIS UA Sq Epi Occasional /LPF Few 10/04 NA [facility] Medical (10/04/2012 01:52:38) Ce nter URINALYSIS UA RBC 6 0 - 2 10/04 [facility] URINALYSIS UA Leuk Est Small Negative 10/04 [facility] Medical (10/04/2012 01:52:38) Ce nter URINALYSIS UA WBC 12 0 - 5 10/04 [facility] URINALYSIS UA Protein 10 mg/dL Negative 10/04 [facility] Medical (10/04/2012 01:52:38) Ce nter URINALYSIS UA pH 5.0 5.0 - 8.0 10/04 Normal [facility] URINALYSIS UA Spec Grav 1.022 <=1.030 10/04 Normal [facility] URINALYSIS UA Turbidity Slight Clear 10/04 [facility] Medical (10/04/2012 01:52:38) Ce nter URINALYSIS UA Nitrite Negative Negative 10/04 Normal [facility] (10/04/2012 01:52:38) Ia dical Center URINALYSIS UA Blood Small Negative 10/04 [facility] * Medical (10/04/2012 01:52:38) Ce nter URINALYSIS UA Bili Negative Negative 10/04 [facility] Medical (10/04/2012 01:52:38) Ce nter URINALYSIS UA Ketones Negative mg/dL Negative 10/04 NA Medical (10/04/2012 01:52:38) Ce nter URINALYSIS UA Glucose 30 mg/dL Negative 10/04 [facility] Medical (10/04/2012 01:52:38) Ce nter CHEMISTRY Phosphorus 3.5 2.5 - 4.5 10/04 Normal [facility] CHEMISTRY AGAP 13.4 10.0 - 10/04 [facility] 20.0 [facility] CHEMISTRY Glucose Lvl 181 70 - 99 10/04 [place] <sup>7</sup>I T ex nterpretive Medical Data: Adult Center reference range values reflect the clinical guidelines
of the [place] [employer]. CHEMISTRY Creatinine 0.9 0.5 - 1.4 10/04 Normal [facility] CHEMISTRY BUN 17 7 - 22 10/04 Normal [facility] CHEMISTRY Sodium Lvl 140 135 - 145 10/04 Normal [facility] CHEMISTRY Chloride Lvl 105 95 - 109 10/04 Normal [facility] CHEMISTRY Calcium Lvl 9.7 8.5 - 10.5 10/04 [facility] [place] [facility] CHEMISTRY Potassium 4.4 3.5 - 5.1 10/04 Normal [facility] CHEMISTRY CO2 26 24 - 32 10/04 Normal [facility] CHEMISTRY eGFR 65 10/04 NA [...] Magnesium 1.5 1.8 - 2.4 10/04 LOW [facility] HEMATOLOGY RBC 4.85 4.20 - [...] Platelet 213 133 - 450 10/04 Normal [facility] HEMATOLOGY MPV 9.5 7.4 - 10.4 10/04 Normal Medical [place] HEMATOLOGY Segs-Bands # 7.7 1.5 - 8.1 10/04 Normal [facility] HEMATOLOGY Basophils 0.3 0.0 - 1.0 10/04 Normal Medical [place] HEMATOLOGY Monocytes # 0.6 0.0 - 0.8 [...] Glu 152 70 - 99 10/03 HI [facility] Center CHEMISTRY POC A LA 0.7 0.5 - 2.2 10/03 Normal [facility] Center CHEMISTRY POC A HCO3 24 22 - 26 10/03 Normal [facility] CHEMISTRY POC A BE -1 -2-2 - 2 10/03 Normal [facility] CHEMISTRY POC A Hct 35.0 36.0 - 10/03 LOW [place] 48.0 [facility] Center CHEMISTRY POC A O2 Sat 96.0 [...] Na 137 135 - 145 10/03 Normal [facility] Center CHEMISTRY POC A Ca Ion 1.29 1.16 - 10/03 Normal [place] 1. [facility] Center CHEMISTRY POC A O2 Sat 99.0 [...] LA 1.1 0.5 - 2.2 10/03 Normal [facility] Center BLOOD BANK ABO/Rh A NEG 10/03 Unknown [place] RESULTS Medical Center BLOOD BANK Antibody Negative 04/18 Normal MH [place] RESULTS Scrn (10/03/2012 09:25:00) /2012 [facility] Pathology Reports No Data Provided for This Section Diagnostic Reports Report Value Date Source Knee 1-2 Views EXAMINATION: Left knee 2 views 01/13/2016 [facility] unilateral DX HISTORY: Left knee pain status [...] or 3 LUMBAR SPINE 4 VIEWS 01/13/2016 [facility] views DX Clinical History: 75-year-old female with [...] of the left hip without contrast 01/13/2016 [facility] HISTORY: Left hip pain status post [...] EXAM: MRI LUMBAR SPINE WITHOUT CONTRAST 01/12/[address] [place] [address] contrast MRI DATE: 01/11/2016 10:08 PM CDT [...] DX CLINICAL HISTORY: Abnormal chest sounds. 2015 [facility] : 1940. TECHNIQUE: PA and lateral views of the chest. Co mparison: 09/14/2012. Heart size: Normal. Tortuous aorta. Lungs: No acute consolidation. Shallow inspirati on. Pleura: No pleural effusion. Mediastinum and elizabeth: Unremarkable. Skeletal: Unremarkable. IMPRESSION: 1. No active disease in the chest. Spine cervical 2 or 3 EXAM: 2 views of the Cervical Spine 03/25 [facility] [place] view DX DATE: Mar 25, 2014 10:21:43 [...] XR CERVICAL SPINE 2 VIEWS 09/17/2013 [facility] [place] views DATE: 2013-09-17 12:00:00 INDICATION: 723.4 Brachial [...] XR CERVICAL SPINE 3 VIEWS 03/19/2013 [facility] [place] views DATE: March 19, 2013 at 0908 [...] XR CERVICAL SPINE 2 VIEWS 12/25/2012 [facility] [place] views DATE: December 25, 2012, 0827 hours. [...] EXAM: CERVICAL SPINE 2 VIEWS 11/22/2012 [facility] [place] [facility] DATE: November 22, 2012 0803 hours [...] Source Temperature Oral (F) 97.5 F 02/14/2016 [facility] Heart Rate 65 [facility]/14[facility] 18 02/14/2016 [facility] C ity Systolic (mm Hg) 122 02/14/2016 [facility] [place] Diastolic (mm Hg) 54 02/14/2016 [facility] Systolic (mm Hg) 117 02/14/2016 [facility] Diastolic (mm Hg) 71 02/14/2016 [facility] Respitory Rate 18 02/14/2016 [facility] C ity Temperature Oral (F) 97.6 F 02/14/2016 [facility] Heart Rate 61 02/14/2016 [facility] y Temperature Oral (F) 97.8 F 02/14/[address] [facility] Respitory Rate 18 02/14/2016 [facility] C [facility]y Heart Rate 70 02/14/2016 [facility] Systolic (mm Hg) 171 02/14/2016 [facility] [place] Diastolic (mm Hg) 82 02/14/2016 [facility] Weight 89.091 02/10/2016 [facility] y Weight 89.545 02/08/2016 [facility] y BMI Calculated 32.85 02/08/2016 [facility] C ity Height 165.1 cm 02/08/2016 [facility] y Weight 89.545 02/08/2016 [facility] Height 172.72 cm 02/08/2016 [facility] BMI Calculated 30.02 02/08/2016 [facility] C ity Respitory Rate 20 01/19/2016 [facility] C ity Systolic (mm Hg) 131 01/19/2016 [facility] [place] Diastolic (mm Hg) 76 01/19/2016 [facility] Temperature Oral (F) 98.1 F 01/19/[address] [facility] Heart Rate 73 01/19/2016 [facility] Weight 91.864 01/19/2016 [facility] y Temperature Oral (F) 99.5 F 01/19/[address] [facility] Heart Rate 59 01/19/2016 [facility] Rate 20 01/19/2016 [facility] Systolic (mm Hg) 129 01/19/2016 [facility] Diastolic (mm Hg) 68 01/19/2016 [facility] Systolic (mm Hg) 157 01/19/2016 [facility] Diastolic (mm Hg) 78 01/19/2016 [facility] Heart Rate 61 01/19/[address] [facility] y Respitory Rate 16 01/19/2016 [facility] Temperature Oral (F) 97.3 F 01/19/2016 [facility] BMI Calculated 35.95 01/11/2016 [facility] Weight 97.983 01/11/[address] [facility] y Height 165.1 cm 01/11/[address] [facility] y Respitory Rate 33 10/06/2012 [facility] Systolic (mm Hg) 131 10/06/2012 [facility] dical [place] Diastolic (mm Hg) 53 10/06/2012 [facility] Center Respitory Rate 16 10/06/2012 [facility] Systolic (mm Hg) 159 10/06/2012 [facility] dical Center Diastolic (mm Hg) 44 10/06/2012 [facility] Center Systolic (mm Hg) 146 10/06/2012 [facility] dical Center Diastolic (mm Hg) 56 10/06/2012 [facility] Respitory Rate 19 10/06/2012 [facility] Temperature Oral (F) 96.3 F 10/06/2012 [facility] Temperature Oral (F) 97.9 F 10/06/2012 [facility] Temperature Oral (F) 97.6 F 10/05/2012 [facility] Weight 91.818 10/03/2012 [facility] Height 165.1 cm 10/03/2012 [facility] Heart Rate 55 10/03/2012 [facility] Heart Rate 64 10/01/2012 [facility] Height 165.1 cm 10/01/2012 [facility] Weight 91.818 10/01/2012 [facility] Encounters Location Location Encounter Encounter Reason Attending ADM DC Stat us Source Details Type Number For Provider Date Date Visit [facility] Inpatient [id number] CERVICAL KERON 10/03 10/06 [facility] T[facility], Center CERVICAL DISC DISPLACE MENT WITH M [facility] Outpt Diag [id number] _MAPID:Sylvester Cabrales 09/17 09/18 [facility] [id number] [id number] [facility] Outpt Diag [id number] Keron 03/25 03/26 [facility] [id number] [place] 12/01 Acti ve [facility] Outpatient [id number] [place] 12/14 Acti ve [facility] Outpatient [id number] [place] 12/14 [facility] 2 [place] Outpatient [id number] [facility] 12/14 [facility] Pre Admit [id number] [facility] 01/10 01/10 [facility] 7 [facility] Inpatient [id number] [facility] 01/10 01/18 [facility] 8 [facility] Outpatient [id number] [place] 01/16 [facility] 4 [place] Outpatient [id number] RILEY BRONSON 02/07 Acti ve [facility] Inpatient [id number] Riley [place] 02/07 02/14 [facility] Outpatient [id number] [place] 03/09 [facility] 6 [facility] Outpatient [id number] [facility] 03/27 [facility] [id number] [facility] 04/21 [facility] [place] Outpatient [id number] [place] 06/30 [facility] [place] Procedures Procedure Code Date Perfomer Comments Source Operation [id number] 1abscess [place] <sup>1</sup> [facility] Cervical [id number] [facility] discectomy [place] [id number] bilateral [facility] [place] 1</sup> Operation<sup>2< [id number] abscess [facility] /sup> drainage/ [place] Assessment and Plan Assessment and Plan Date Source Extracted from:Title: DC Summary - Neurosurgery 02/15/2016 [facility] Author: Mora Wills Date: 02/14/16 Attending: Riley Hall MD Service: Neurosurgery Code status: None Specified=FULL CODE Reason for Admission: 61243, 94545 X3, CONNECTIVE TISSUE AND DISC STENOSIS OF Working DRG: Spinal fusion except cervical w/o CORRECTION Isolation: None Documented Consulting Physicians: (none on [...] post-operative pain, complicated by inappropriate use of BRUSHER HAND and excessive lethargy due to narcotic medications. [...] Contin 15mg po Q12H #60 refill 0 --Vader 10/325mg po Q6H prn pain #90, refill [...] MD Date: 02/13/16 Progress Note - Daily [facility] Completed: Jan, 12:47 by Riley Hall MD RM: 5M30 - 00, J5MA ADIEL NDIAYEVENESSA Martinez 75y (: 1940) F Attending: Riley Hall MD Service: Neurosurgery Reason for Admission: 29213, 81522 X3, CONNECTIVE TISSUE AND DISC STENOSIS OF Working DRG: Spinal fusion except cervical w/o CORRECTION Code status: None Specified=FULL CODE Current diet: Regular Isolation: None Documented Allergies: NKFA, NKDA SUBJECTIVE: Patient overall doing well. Patient reported experiencing expected postoperative pain at surgical site. Patient reported that she mobilized further with PT today. Patient has been voidin g without difficulty. Patient's was at bedside. OBJECTIVE: General: NAD; patient resting comfortably in bed. Incison: ALEX, CDI, no redness, no swelling, no active [...] IV 25 mL IV PRN 02/08/16 acetaminophen-hydrocodone (Vader 10/325 oral tablet ) 1 tab PO Q4H 02/10/16 acetaminophen-hydrocodone (Vader 5/325 oral tablet) 1 tab PO Q4H 02/11/16 bisacodyl 10 mg NV Daily 02/11/16 bisacodyl 5 mg PO TID [...] (BD Normal Saline Flush) 5 mL IV NV N 02/09/16 sodium chloride (BD Normal Saline [...] at L2, L3, L4, and L5. (CPT: 89385 and 22078 x3) SURGEON Riley Hall MD MANAGING MANAGER TAMIKO Barrientos ANESTHESIA General endotracheal anesthesia ESTIMATED [...] radiographic studies have been extensively detailed in [facility] patient's medical record. On clinica l [...] symptoms. The patient was subsequently hospitalized at [facility] from January 10 until January 19, 2016 for evaluation and treatment regarding an exacerbation in her left lower extrem ity and lumbar symptoms. Radiographic studies reviewed as part of the patient's evaluation during the course of her hospitalization included a MRI scan of [facility] lumbar spine. The images demonstrate d [...] placed under gen eral endotracheal anesthesia. The [facility] staff acquired the appropriate vascular access on [...] L2-3 through L4-5 segments. Subsequently, utilizing a [place] probe as well as direct visualization, the L2, L3, L 4, L5, and S1 pedicles were identified b ilaterally as well as their associated neural foramen. In addition, utilizing a [place] probe as well as direct visualization, the [...] L4, L5, and S1 vertebral segments. A [place] probe was noted to be easily passed [...] 5/(L) 5 Wrist Extensors: (R) 5/(L) 5 Science Analyst Strength: (R) 5/(L) 5 Iliopsoas: (R) 5/(L) [...] foraminotomies. Extracted from:Title: Progress Note * 01/19/2016 [facility] Author: Jean Paul Angela MD Date: 01/18/16 [...] History Date Source Social History TypeResponse 01/11/2016 [facility] Alcohol Past Smoking Status Never smoker; Exposure to Tobacco Smoke None; Cigarette Smoking Last 365 Days No; Reg Smoking Cessation Counseling No Family History No Data Provided for This Section Advance Directives No Data Provided for This Section Functional Status No Data Provided for This Section
--- OUTSIDE RECORDS SUMMARY | 2020-05-17 21:19 | XMS REPORT | Encounter Summary ---
:1940 Author Care Team Providers Name Role Phone Dr. Carson Sanchez Primary Care Provider [phone] Reason for Visit diabetes Instructions 1. Type 2 diabetes mellitus with out complication glucose, fingerstick, bloo d hemoglobin A1C, fingerstic k Tresiba FlexTouch U-200 in sulin 200 unit/mL (3 mL) subcutaneous pen Accu-Chek Fastclix Lancet Drum Trulicity 1.5 mg/0.5 mL piedra bcutaneous pen injector Tradjenta 5 mg tablet 2. Body mass index 30+ - obesity body mass index: care inst ructions learning about healthy palak ght 3. Hyperlipidemia high cholesterol: care ins tructions 4. Essential hypertension 5. Neuropathy 6. Coronary arteriosclerosis Discussion Note: None recorded. Plan of Care Reminders Provider Appointments None recorded. Lab Glucose, [facility] Medical Fingerstick, Blood 04/14/2020 - [place] Hemoglobin a1C, [facility] Medical Fingerstick 04/14/2020 - [place] Referral None recorded. Procedures None recorded. Surgeries None recorded. Imaging None recorded. Medications Name Start Date Accu-Chek Fior Meter Accu-Chek Fior Plus test strips Accu-Chek FastClix Lancing Device Brilinta carvedilol 25 mg tablet Take 1 tablet twice a day by oral route. cinacalcet 30 mg tablet Take 1 tablet every day by oral route. Comfort EZ Pen [place] 32 gauge x 5/32" furosemide 20 mg tablet Take 1 tablet every day by oral route. gabapentin 300 mg capsule Take 1 capsule 3 times a day by oral route. irbesartan 300 mg tablet Take 1 tablet every day by oral route. lisinopril Livalo 1 mg tablet Take 1 tablet every day by oral route. metformin ER 500 mg 24 hr tablet,extended release Take 1 tablet every day by oral route. Miralax Premarin 0.625 mg/gram vaginal cream Insert 0.5 applicatorsful every day by vaginal route. Restasis 0.05 % eye drops in a dropperette INSTILL 1 DROP INTO AFFECTED EYE(S) BY OPHTHALMIC ROU TE EVERY 12 HOURS Tradjenta 5 mg tablet Take 1 tablet every day by oral route for 90 days. Tresiba FlexTouch U-200 insulin 200 unit/mL (3 mL) sub cutaneous pen Give 20 units in AM and increase as directed: TDD 50 Trulicity 1.5 mg/0.5 mL subcutaneous pen injector Inject 1.5 mg every week by subcutaneous route as dir ected for 90 days. Vitamin D3 Medications Administered None recorded. Vitals Height Weight BMI Blood Pressure 5 ft 5 in 202 lbs 33.6 kg/m2 130/88 mm[Hg] Results Lab Results Date Name Specimen Result Interpretation Description Value Range Status Address Hemoglobin a1C, Hemoglobin a1C 6.4 [facility] Fingerstick Fingerstick: Medical - [place]: [id number], [place] Glucose, Blood Glucose: 172 [facility] Fingerstick, mg/dl Medi montse - Blood [place]: [id number], [place] Allergies Code Code System Name Reaction Severity Status Onset Aanylib-fnl-hpg Myalgias Active Reductase (Muscle Pain) Inhibitors Problems Name Status Onset Date Source Type 2 Diabetes Mellitus without Complication Active Vitamin D Deficiency Active 03/27/2018 Obesity Active 03/27/2018 Essential Hypertension Active 03/27/2018 Constipation Active 03/27/2018 Hyperlipidemia Active 05/22/2019 Neuropathy Active 11/24/2019 Procedures Date Name Performed by 01/17/2016 Back Surgery Information not avai lable 08/16/2014 Knee Replacement Information not avai lable 09/16/2012 Operation on Neck Information not avai lable 03/18/2012 Repair of Perforated Colon Information n ot available 06/18/2010 Colonoscopy Information not avai lable Vaccine List Vaccine Type influenza, injectable, quadrivalent 03/27/2020 Social History Tobacco Smoking Status Never Smoker Past Encounters Encounter Date Diagnosis Provider 04/14/2020 Type 2 Diabetes Mellitus without Carson Samantha Sheldon MD: Complication; Body Mass Index 30+ [id number] [facility] - Obesity; Hyperlipidemia; [place], [place] [address], Essential Hypertension; [place], [place] [phone], Neuropathy; Coronary Ph. Arteriosclerosis History of Present Illness Diabetes F/U Reported By: Patient HPI: Review finger sticks: monito ring glucose 3 times per day. Labs: last A1C result: 6.4%. Context: carlosin rob eye doctor regularly. Associated Symptoms: no weight gain, no dizziness , no increased thirst, no increased urination, no blurred vision , weight loss (19 lbs), numbness of feet Note: The patient is here for follow up of DM2. She had a heart attack 12/14/19 and had a stent placed. Review of Systems Comprehensive General Adult ROS Reported By: Patient Constitutional: Constitutional: no fever, no night sweats Eyes: Eyes: no dry eyes, no vision change ENMT: Ears: no difficulty hearing, no ear pain. Mouth/Throat: no sore throat Cardiovascular: Cardiovascular: no chest joseph n, no shortness of breath when walking, no palpitations Respiratory: Respiratory: no cough, no wh eezing, no shortness of breath Gastrointestinal: Gastrointestinal: no abdomin al pain, no nausea, no vomiting, no constipation, no diarrhea Musculoskeletal: Musculoskeletal: no muscle a ches, no muscle weakness, no arthralgias/joint pain, no b ack pain, no swelling in the extremities Integumentary: Skin: no rashes Neurologic: Neurologic: no weakness, no dizziness, no headaches Psychiatric: Psych: no depression, no sle ep disturbances, no anxiety Endocrine: Endocrine: no fatigue Allergic/Immunologic: Allergy/Immunologic: no itch ing Physical Exam General Adult Exam (Female) Reported By: Patient Constitutional: General Appearance: healthy- appearing, well-nourished, well-developed. Level of Dis tress: NAD. Ambulation: ambulating normally Psychiatric: Mental Status: active and al ert Head: Head: normocephalic, atrauma tic Eyes: Pupils: PERRLA. Sclerae: non -icteric Lungs: Auscultation: breath sounds normal, good air movement, no wheezing, no rales/crackles Cardiovascular: Heart Auscultation: RRR, nor mal S1, normal S2, murmur; 2/6 Murmur Abdomen: Bowel Sounds: normal. Inspec tion and Palpation: soft, no tenderness Musculoskeletal:: Motor Strength and Tone: nor mal motor strength. Extremities: no cyanosis, no edema Neurologic: Gait and Station: normal gai t Skin: Inspection and palpation: no rash, no lesions
--- OUTSIDE RECORDS SUMMARY | 2020-05-17 21:19 | XMS REPORT | Continuity of Care Document ---
:1940 Author Organization [facility] t Address [address] [place] [address] Dr. [address] [place] [address] Care Team Providers Name Role Phone Sae Paz MD Primary Care Physician ISMA Attending Clinician Unavailable Joselito Quinones MD Attending Clinician Jese Whyte Attending Clinician Junaid Angela Attending Clinician Peterson Drew Attending Clinician Gabbie Thomas Attending Clinician Jese Whyte Admitting Clinician Junaid Angela Admitting Clinician Peterson Drew Admitting Clinician Payers Payer Name Policy Type Policy Effective Date Expiration Date Sour ce Number HUMANA [id number] 2018 [place] MEDICAREMANA 00:00:00 [employer] MEDICARE PPO/PFFS/ERS [id number] 2018 -PresentPPO Problems Condition Condition Condition Status Onset Resolution Last Treating Co mments Source Name Details Category Date Date Treatment Clinician Date Neuropathy Neuropathy Problem Active [place] 6-08 Family 00:00: Practic 00 e Hyperlipid Hyperlipid Problem Active 2018-06 [place] emia emia 2-05 Family 00:00: Practic 00 e Hypercalce Hypercalce Disease Active H yue hays lis 7-08 Methodi 00:00: st 00 Primary Primary Disease Active [place] hyperparat hyperparat 7-08 Me thodi hyroidism hyroidism 00:00: st 00 Type 2 Type 2 Problem Active 2017-06 [facility] diabetes Diabetes 0-10 Family mellitus Mellitus 00:00: Practi c without without 00 e complicati Complicati on on Vitamin D Vitamin D Problem Active 2017-06 Perry zapata deficiency Deficiency 0-10 Fa myla 00:00: Practic 00 e Obesity Obesity Problem Active 2017-06 [place] 0-10 Family 00:00: Practic 00 e Essential Essential Problem Active 2017-06 Perry zapata hypertensi Hypertensi 0-10 Fa myla on on 00:00: Practic 00 e Constipati Constipati Problem Active 2017-06 [place] on on 0-10 Family 00:00: Practic 00 e 52813, Diagnosis Active 2016-08-23 Mem oria 48379 X3, 01-31 21:24:00 l CONNECTIVE [id number], 00:00: Herm robert [place]UE [place] 93951 X3, 00 D CONNECTIVE TISSUE AND D Active 02/01/2016 [facility] HERNIATED Diagnosis Active 2016-02-01 Memoria LUMBAR 01-10 22:00:00 l DISK S/P 00:00: Luke FALL WITH HERNIATED 00 LT H LUMBAR DISK S/P FALL WITH LT H Active 01/11/2016 [facility]-09 05:29:00 l DISK S/P 00:00: [place] FALL WITH HERNIATED 00 LEFT LUMBAR DISK S/P FALL WITH LEFT Active 01/10/2016 [facility] 723.4 - Diagnosis Active 2013-12-02 Me moria BRACHIAL 4-02 07:22:00 l NEURIT 723.4 - 00:01: Luke BRACHIAL 00 NEURIT Active 09/17/2013 [facility] Luke Cervical Problem Active 2016-02-17 Mem oria spondylosi - 00:32:37 l s with Cervical 00:00: Richard thompson radiculopa spondylosi 00 thy s with (disorder) radiculopa thy (disorder) Active 10/17/2012 Problem 02/17/2016 Data migrated from [facility] on 02/09/15. [facility] CERVICAL Diagnosis Active 2012-10-07 M emoria RADICULITI 09-06 13:29:00 l S, CERVICAL 00:00: Richard n CERVICAL RADICULITI 00 DISC DISP S, CERVICAL DISC DISP Active 09/06/2012 [facility] Diabetes Problem Resolve 2013-03-21 Ms moria mellitus d 20:07:44 l Diabetes Richard n mellitus Resolved Problem 03/21/2013 [facility] KATIANick Butler GERD - Problem Resolve 2013-03-21 Boy tadeo Gastro-eso d 20:07:44 l phageal GERD - Luke reflux Gastro-eso disease phageal reflux disease Resolved Problem 03/21/2013 [facility] KATIANick Butler HLD - Problem Resolve 2013-03-21 Boy tadeo Hyperlipid d 20:07:44 l emia HLD - Luke Hyperlipid emia Resolved Problem 03/21/2013 [facility] PHYLLIS Butler HTN - Problem Resolve 2013-03-21 Boy tadeo Hypertensi d 20:07:44 l on HTN - Luke Hypertensi on Resolved Problem 03/21/2013 [facility] PHYLLIS Butler Neuropathy Problem Resolve 2013-03-21 Memoria d 20:07:44 l Luke Neuropathy Resolved Problem 03/21/2013 [facility] PHYLLIS Butler Diabetes Problem Active 2016-02-17 Mem oria mellitus 00:32:37 l (disorder) Diabetes He rmann mellitus (disorder) Active [facility] Active 2016-02-17 M emoria nt of 00:32:37 l lumbar [place] interverte Displaceme bral disc nt of without lumbar myelopathy interverte (disorder) bral disc without myelopathy (disorder) Active Problem 02/17/2016 [facility] Gastroesop Problem Active 2016-02-17 M emoria hageal 00:32:37 l reflux [place] disease Gastroesop (disorder) hageal reflux disease (disorder) Active Problem 02/17/2016 PHYLLIS Butler,[facility] Hypertensi Problem Active 2016-02-17 M emoria ve 00:32:37 l disorder, Luke systemic Hypertensi arterial ve (disorder) disorder, systemic arterial (disorder) Active Problem 02/17/2016 PHYLLIS Butler,[facility] Low back Problem Active 2016-02-17 Mem oria pain 00:32:37 l (disorder) Low back He rmann pain (disorder) Active Problem 02/17/2016 [facility] Lumbar Problem Active 2016-02-17 Memor ia radiculopa 00:32:37 l thy Lumbar Luke (disorder) radiculopa thy (disorder) Active Problem 02/17/2016 [facility] Lumbar Problem Active 2016-02-17 Memor ia spondylosi 00:32:37 l s Lumbar [place] (disorder) spondylosi s (disorder) Active Problem 02/17/2016 [facility] Spinal Problem Active 2016-02-17 Memor ia stenosis 00:32:37 l of lumbar Spinal Anitra nn region stenosis (disorder) of lumbar region (disorder) Active Problem 02/17/2016 [facility] Spondyloli Problem Active 2016-02-17 M emoria sthesis 00:32:37 l (disorder) Richard n Spondyloli sthesis (disorder) Active Problem 02/17/2016 [facility] Interverte Problem Active 2016-02-17 M emoria bral disc 00:32:37 l disorder Luke (disorder) Interverte bral disc disorder (disorder) Active Problem 02/17/2016 [facility] Interverte Problem Active 2016-02-17 M emoria bral disc 00:32:37 l stenosis [place] of neural Interverte canal bral disc (disorder) stenosis of neural canal (disorder) Active Problem 02/17/2016 [facility] BRACHIAL Diagnosis Active 2012-10-07 M emoria NEURITIS 13:29:00 l NOS BRACHIAL Richard n NEURITIS NOS Active [facility] CERV DISC Diagnosis Active 2012-10-07 Memoria DIS W 13:29:00 l MYELOPAT CERV Luke DISC DIS W MYELOPAT Active [facility] ILLNESS, Diagnosis Active 2016-08-23 M emoria UNSPECIFIE 21:24:00 l D ILLNESS, Richard n UNSPECIFIE D Active [facility] Allergies, Adverse Reactions, Alerts Allergy Allergy Status Severity Reaction(s) Onset Inactive Treating Comm ents Source Name Type Date Date Clinician STATINS- Allergy Active Myalgias Burnett ge [facility] to (muscle Family REDUCTAS substanc pain) Practi c E e e INHIBITO RS NKFA NKFA Active Memoria sierra Butler Social History Social Habit Start Date Stop Date Quantity Comments Source Sex Assigned At [place] M ethodist Tobacco use and 2019-06-03 2019-06-03 Never used Rayshawn Torres ethodist exposure 00:00:00 00:00:00 Alcohol intake 2019-06-03 2019-06-03 Current drinker Jason on [employer] 00:00:00 00:00:00 of alcohol (finding) Social History 2016-01-11 2016-01-[address] [facility] Vanessa burger 22:35:39 22:35:39 Smoking Status Start [...] st U-100 24 INSULIN SUBQ) cinacalcet 2020- No 30mg QD Take 1 [place] (SENSIPAR) [...] 11:20: nightly. st mg tablet 43 cinacalcet 2018-06- No Hypercalcem 30mg Q.5D Take 1 Tabares (SENSIPAR) 2-17 03-16 ia tablet (30 Me thodi 30 MG 00:00: 23:59 mg total) st tablet 00 :00 by mouth 2 (two) times a day for 90 days. cinacalcet 2018-06 2019- No 30mg Q.5D TAKE 1 [place] (SENSIPAR) 1-11 12-17 TABLET (30 Me thodi 30 MG 00:00: 00:00 MG TOTAL) st tablet 00 :00 BY MOUTH 2 (TWO) TIMES A DAY FOR 90 DAYS. gabapentin Yes TAKE 1 [place] (NEURONTIN) 6-25 CAPSULE BY Me thodi 300 mg 00:00: MOUTH st capsule 00 THREE TIMES A DAY ACCU-CHEK 2019-0 Yes Q.5D 2 (two) [place] FIOR PLUS 6-18 times a Method i TEST STRP 00:00: day. for st strip test 00 testing strips ACCU-CHEK 2018- Yes USE [place] MULTICLIX 6-18 DIRECTED Method i LANCET 00:00: TWICE A st lancets 00 DAY, DIAGNOSIS E11.9 TRADJENTA 5 2018- Yes 5mg QD Take 5 mg [place] mg tablet 6-13 by mouth Method i 00:00: daily. st 00 VITAMIN D2 Yes TAKE ONE Kevin ston 50,000 unit 6-10 CAPSULE BY Ms thodi capsule 00:00: MOUTH ONE st 00 TIME PER WEEK metFORMIN Yes TAKE 1 [place] XR 5-26 TABLET BY Yvonne (GLUCOPHAGE 00:00: MOUTH st -XR) 500 mg 00 EVERY DAY 24 hr IN THE tablet EVENING WITH DINNER SOLIQUA Yes INJECT Tabares 100/33 100 5-13 UNDER THE Meth jesus unit-33 00:00: SKIN 30 st mcg/mL 00 UNITS insulin pen EVERY MORNING AND INCREASE TO 60 DIRECTED Lipitor No Notes: Memoria 02-15 (Same As: l 02:00: Lipitor) Acetaminoph Yes 1 tab, PO, Memoria en 325 MG / 8-29 Q6H, PRN l Hydrocodone 12:49: pain, # 90 [place] Bitartrate 00 tab, 0 10 MG Oral Refill(s), Tablet given to [Bellamy patient 10/325] morphine 15 Yes 15 mg = 1 [...] tab, PO, l tablet 12:49: TID, PRN Luke 00 as needed for muscle spasm, # 45 tab, 0 Refill(s) MS Contin No Notes: Do Mem oria 02-12 not crush l 02:00: (Same as:Ortae aburto SR, MS Contin) Lipitor No Notes: Memoria 02-11 (Same As: l 02:00: Lipitor) Tylenol No Notes: Do Memor ia 02-10 not exceed l 23:00: 4 gm/day. (Same as: Tylenol) Bisacodyl No Notes: Memori a 02-10 (Same As: l 22:47: Dulcolax, [place] 00 Correctol) (Do Not Crush) "Do Not Crush" Docusate No Notes: Memoria 02-10 (Same as: l 22:00: Colace) (Do Not Crush) Simethicone No Notes: Boy tadeo 02-10 (Same as: l 21:04: Mylicon) Bisacodyl No Notes: Memori a 02-10 (Same As: l 21:04: Dulcolax, [place] 00 Bisco-Lax) Baclofen No Notes: Memoria 02-10 (Same As: l 14:00: Lioresal) Dilaudid No Notes: Memoria 02-09 (Same as: l 22:54: Dilaudid) Acetaminoph No Notes: Boy tadeo en 325 MG / 02-09 (Same as: l Hydrocodone 22:52: [place] Anitra nn Bitartrate 00 325/5) Do 5 MG Oral not exceed Tablet 4gm/day of [[place] acetaminop 5/325] hen. tradjenta No tradjenta, Ms moria 02-08 5 mg, 1 l 20:00: tab, Drug form: MISC, Route: PO, Daily, 02/09/16 15:00:00 CDT, Duration: 30 day, Stop date: 03/10/16 9:00:00 CDT Rosuvastati Yes 2.5 mg, Mem oria n calcium 5 02-08 PO, l MG Oral 16:18: Bedtime, # Herm robert Tablet 00 30 tab, 0 [Crestor] Refill(s) Sodium No [...] 14:00: as:Avapro) Tradjenta No 5 mg, Memoria 824 Route: PO, l 14:00: Drug form: [place] 00 TAB, Daily, Dosing Weight 89.545, kg, Start date: 02/09/16 9:00:00 CDT Furosemide No Notes: Memor ia 20 MG Oral 24 (Same as: l Tablet 14:00: Lasix) May cause GI upset. Give with food or milk. Vitamin D3 No Notes: Memor ia 8-24 Same as : l 14:00: Vitamin D3 Amlodipine No Notes: Memor ia 8-24 (Same as: l 14:00: Norvasc) Miralax No Notes: Memoria 8-24 Dissolve l 14:00: in 8 oz of Luke 00 water or juice. (Same as: Miralax) Insulin, No Notes: Memoria Aspart, 24 Roll in l Human 06:52: palms of 00 hands gently; Do not shake vigorously . (Same as: NovoLOG) "single patient use only" WASTE: F/P - Black; E - Municipal Trash Bin Stable for 28 days at room temperatur e. Expires in days from ____Date Glucagon No 1 mg, Memoria 24 Route: IM, l 06:52: Drug form: PDR/INJ, PRN, Dosing Weight 89.545, kg, PRN Blood Glucose Results, Start date: 02/09/16 1:52:00 CDT, Duration: 30 day, Stop date: 03/10/16 1:51:00 CDT Dextrose No 25 gm, 50 Boy tadeo 50% Syringe 8-24 mL, Route: l 06:52: IVP, Drug Form: INJ, Dosing Weight 89.545, kg, PRN, [...] ia 02-08 Give with l 02:00: food. Luke 00 (Same As: Coreg) Docusate Yes 100 mg = 1 Mem oria Sodium 100 02-07 cap, PO, l MG Oral 23:47: BID, 0 Luke Capsule 00 Refill(s) [Colace] Linagliptin No 5 mg = 1 Me moria 5 MG Oral 02-07 tab, PO, l Tablet 23:47: Daily, 0 [place] [Tradjenta] 00 Refill(s) 3 ML Yes 50 units, Memoria Insulin 02-07 SUB-Q, l Glargine 23:47: Bedtime, 0 Her kowalski 100 UNT/ML 00 Refill(s) Prefilled Syringe [Lantus] glimepiride Yes 4 mg, PO, M emoria 8-23 Daily, 0 l 23:47: Refill(s) Luke 00 Clonidine No 0.1 mg = 1 Me moria Hydrochlori 8- tab, PO, l de 0.1 MG 23:40: PRN Luke Oral Tablet 00 Hypertensi on, 0 Refill(s) Ancef + No Notes: Memoria sodium 8-23 (Same As: l chloride 23:00: Ancef, Luke 0.9% INJ 00 Kefzol) 100 mL MEDICATION WASTE Product Size: 1000 mg Product Wasted: ___ mg Docusate No Notes: Memoria Sodium 100 - (Same as: l MG Oral 22:00: Colace) Luke Capsule 00 (Do Not [Colace] Crush) Ofirmev No 1,000 mg, Memor ia 02-07 Route: IV, l 19:25: ONCE, [place] Dosing Weight 89, kg, Start date: 02/08/16 14:25:00 CDT, Stop date: 02/08/16 14:25:00 CDT Ondansetron No Notes: Boy tadeo 02-07 (Same as: l 18:22: Zofran) MEDICATION WASTE Product Size: 4 mg Product Wasted: ___ mg Flumazenil No Notes: Memor ia 02-07 (Same as: l 18:22: Romazicon) Naloxone No Notes: Memoria 02-07 Same as l 18:22: Narcan Morphine No Notes: Memoria 02-07 (Same l 18:22: as:MORPhin [place] 00 e Sulfate) Sodium No 1,000 mL, Memori a Chloride 02-07 Rate: 125 l 0.154 18:22: ml/hr, Luke MEQ/ML 00 Infuse Injectable over: 8 Solution hr, Route: IV, Dosing Weight 89.545 kg, Total Volume: 1,000, Start date: 02/08/16 13:22:00 CDT, Duration: 30 day, Stop date: 03/09/16 13:21:00 CDT Morphine No Notes: Memoria 02-07 Dose: l 18:00: [place] 00 Delay: Basal rate: 4hr limit: (Same as:Norma lamb) Naloxone No Notes: Memoria 8-23 Same as l 17:53: Narcan Acetaminoph No Notes: Do M emoria en 325 MG / 02-07 not exceed l Hydrocodone 17:53: 4gm/day of Luke Bitartrate acetaminop 10 MG Oral hen. Tablet (Same as: [Bellamy Bellamy 10/325] 325/10) Zofran No Notes: Memoria 02-07 [...] Notes: Memoria 02-07 Chlorasept l 17:52: ic [place] (Same as: Chlorasept ic, Sore Throat [place]) WASTE: F/P - Black; E - Municipal Trash Bin ceFAZolin No Notes: Memori a 02-07 Same as: l 03:00: Ancef carvedilol Yes 12.5 mg = Me moria 12.5 mg 01-18 1 tab, PO, l oral tablet 18:26: Q12H, 0 Her kowalski Refill(s) Acetaminoph No Notes: Boy tadeo en 325 MG / 01-17 Same as l Hydrocodone 14:32: [place] Anitra nn Bitartrate 00 325-7.5mg 7.5 MG Oral Do not Tablet exceed [Bellamy 4gm/day of 7.5/325] acetaminop hen. sodium No [...] Roll in l Human 21:30: palms of [place] hands gently; Do not shake vigorously . (Same as: NovoLOG) "single patient use only" WASTE: F/P - Black; E - Municipal Trash Bin Stable for 28 days at room temperatur e. Expires in days from ____Date Hydralazine No Notes: Boy tadeo 01-13 (Same as: l 19:44: Apresoline ) Push over 5 minutes Ativan No Notes: Memoria 01-12 (Same as: l 20:06: Ativan) Luke 00 Acetaminoph No 1 tab, Boy tadeo en 325 MG / 01-12 Route: PO, l Hydrocodone 20:05: Drug Form: [place] Bitartrate 00 TAB, 10 MG Oral Dosing Tablet Weight [Bellamy 97.983, 10/325] kg, Q4H, Start date: 01/13/16 15:05:00 CDT, Stop date: 02/12/16 16:00:00 CDT Miralax No Notes: Memoria 01-12 Dissolve l 14:11: in 8 oz of [place] 00 water or juice. (Same as: Miralax) Lorazepam No 0.5 mg, Memor ia 01-11 Route: l 15:44: IVP, Drug form: INJ, ONCE, Dosing Weight 97.983, kg, PRN Anxiety, Priority: NOW, Start date: 01/12/16 10:44:00 CDT Tradjenta No 5 mg, Memoria - Route: PO, l 14:00: Drug form: Luke 00 TAB, Daily, Dosing Weight 97.983, kg, Start date: 01/12/16 9:00:00 CDT irbesartan No Notes: Memor ia 7-27 (Same l 14:00: as:Avapro) Luke 00 Furosemide No Notes: Memor ia 20 MG Oral 7-27 (Same as: l Tablet 14:00: Lasix) Luke May cause GI upset. Give with food or milk. glimepiride No Notes: Boy tadeo 7-27 (Same as: l 14:00: Amaryl) [place] 00 Tradjenta 5 No Tradellaadilsona M emoria mg 7-27 5 mg l (Patient's 14:00: (Patient's H ermann own 00 own medicine) medicine), 1 tab, Drug form: MISC, Route: PO, Daily, 01/12/16 9:00:00 CDT, Duration: 30 day, Stop date: 02/10/16 9:00:00 CDT Aspirin 81 No Notes: Do Me moria MG Enteric - not crush l Coated 14:00: or chew. [place] Tablet (Same As: Ecotrin) Amlodipine No Notes: Memor ia 7-27 (Same as: l 14:00: Norvasc) [place] Docusate No Notes: Memoria 7-27 (Same as: l 14:00: Colace) [place] (Do Not Crush) Spironolact No Notes: Boy tadeo one - (Same As: l 14:00: Aldactone) Luke Ativan No Notes: Memoria 7-27 (Same as: l 13:54: Ativan) Luke Sodium No 25 mL, Memoria Chloride 01-11 Route: IV, l 0.9% IV 13:19: Start [place] date: 01/12/16 8:19:00 CDT, Duration: 30 day, Stop date: 02/11/16 8:18:00 CDT, PRN Line Flush BD Normal No Notes: Memori a Saline 01-11 (Same as: l Flush 13:19: BD Posiflush) Insulin, No Notes: Memoria Aspart, 01-11 Roll in l Human 03:38: palms of hands gently; Do not shake vigorously . (Same as: NovoLOG) "single patient use only" WASTE: F/P - Black; E - Municipal Trash Bin Stable for 28 days at room temperatur e. Expires in days from ____Date Dextrose No 12.5 gm, Memor ia 50% Syringe 01-11 25 mL, l 03:38: Route: [place] 00 IVP, Drug Form: INJ, Dosing Weight 97.983, [...] Memoria 01-11 (Same As: l 02:38: Lipitor) Lantus No Notes: Memoria 01-11 Same as l 02:00: Lantus Solostar PEN Do not hold insulin without contacting prescriber "single patient use only" WASTE: F/P - Black; E - Municipal Trash Bin Stable for 28 days at room temperatur e. Expires in days from ____Date carvedilol No Notes: Memor ia 01-11 Give with l 02:00: food. [place] 00 (Same As: Coreg) Crestor No Route: PO, Boy tadeo 01-11 Drug form: l 02:00: TAB, [place] 00 Bedtime, Dosing Weight 97.983, kg, Start date: 01/11/16 21:00:00 CDT, Duration: 30 day, Stop date: 02/09/16 21:00:00 CDT Acetaminoph No Notes: Do M emoria en 325 MG / - not exceed l Hydrocodone 23:00: 4gm/day of [place] Bitartrate 00 acetaminop 10 MG Oral hen. Tablet (Same as: [Bellamy Bellamy 10/325] 325/10) Enoxaparin No Notes: Memor ia 7-26 (Same as: l 23:00: Lovenox) Luke Clonidine No Notes: Memori a Hydrochlori - (Same As: l de 0.1 MG 22:56: Catapres) Her kowalski Oral Tablet 00 Sodium No 1,000 mL, Memori a Chloride 01-10 Rate: 45 l 0.154 22:53: ml/hr, [place] MEQ/ML 00 Infuse Injectable over: 22.2 Solution hr, Route: IV, Dosing Weight 97.983 kg, Total Volume: 1,000, Start date: 01/11/16 17:53:00 CDT, Duration: 30 day, Stop date: 02/10/16 17:52:00 CDT Saline No Notes: Memoria Flush 0.9% 01-10 (Same as: l 22:53: BD Posiflush) Morphine No Notes: Memoria 7- (Same l 22:53: as:MORPhin e Sulfate) Ondansetron No Notes: Boy tadeo - (Same as: l 22:53: Zofran) MEDICATION WASTE Product Size: 4 mg Product Wasted: ___ mg Acetaminoph No 100.4 F, M emoria en -26 Start l 22:53: date: [place] 01/11/16 17:53:00 CDT, Duration: 30 day, Stop date: 02/10/16 17:52:00 CDT irbesartan Yes 300 mg = 1 M emoria 300 mg oral 7-26 tab, PO, l tablet 22:27: Daily, # Luke 00 30 tab, 0 Refill(s) Co Q-10 100 Yes 200 mg = 2 Memoria mg oral - cap, PO, l capsule 22:21: Daily, 0 Richard n 00 Refill(s) Aspirin 81 Yes 81 mg = 1 Me moria MG Enteric - tab, PO, l Coated 22:21: Daily, # [place] Tablet 00 90 tab, 3 Refill(s) Vitamin D3 Yes 2,000 Memori a 01-10 IntlUnit, l 22:21: PO, Daily, [place] 00 0 Refill(s) Rosuvastati Yes See Memori a n calcium 5 01-10 Instructio l MG Oral 22:21: ns, 1 tab Anitra nn Tablet 00 PO Bedtime [Crestor] tuesdays and fridays, 0 Refill(s) spironolact Yes 25 mg = 1 M emoria one 25 mg - tab, PO, l oral tablet 22:21: Daily, # He rmann 00 30 tab, 3 Refill(s) Docusate Yes 300 mg = 3 Mem oria Sodium 100 01-10 cap, PO, l MG Oral 22:21: Daily, 0 Richard n Capsule 00 Refill(s) [Colace] Furosemide Yes 20 mg = 1 Me moria 20 MG Oral -26 tab, PO, l Tablet 22:21: Daily, # Luke 00 30 tab, 0 Refill(s) Linagliptin Yes 5 mg = 1 Me moria 5 MG Oral - tab, PO, l Tablet 22:13: Daily, # Luke [Tradjenta] 00 30 tab, 3 Refill(s) Acetaminoph Yes 2 tabs, Mem oria en 325 MG / - PO, Q6H, 0 l Hydrocodone 22:01: Refill(s) H ermann Bitartrate 00 10 MG Oral Tablet [Bellamy 10/325] Amlodipine Yes 10 mg, PO, M emoria - Daily, 0 l 22:01: Refill(s) [place] 00 Pepcid 20 Yes Rigoberto 20 mg, 1 Boy tadeo mg oral 4-21 Skyler tab, PO, l tablet 13:44: Meiner BID, 60 Richard n 03 tab, Substituti on Allowed Bellamy Yes Rigoberto 1-2 tab, Memoria 10/325 oral [...] l mg Tablet 13:42: Meiner on package [place] 51 instructio ns, PO, Daily, Take with [...] mg 4-21 Rodgers cap, l oral 01:00: Reji Route: PO, Richard n tablet, 00 Drug form: disintegrat CAP, Q8H, ing Dosing Weight 91.818, kg, PRN Anxiety, Start date: 10/05/12 20:00:00, Duration: 30 day, Stop date: 11/04/12 19:59:00 Lantus No Estela 10 unit, Memor ia 4-20 Young 0.1 mL, l 23:46: Route: Luke SUB-Q, Drug form: INJ, ONCE, Dosing Weight 91.818, kg, Start date: 10/05/12 18:46:00, Stop date: 10/05/12 18:46:00 insulin No Estela 3 unit, Memor ia aspart 4-20 Young 0.03 mL, l 22:13: Route: Luke SUB-Q, Drug form: SOLN, TID-Before Meals, Dosing Weight 91.818, kg, PRN Blood Glucose Results, Start date: 10/05/12 17:13:00, Duration: 30 day, Stop date: 11/04/12 17:12:00 glucagon 2012-0 No Estela 1 mg, Memori a 4-20 Young Route: IM, l 22:13: Drug form: [place] 00 PDR/INJ, PRN, Dosing Weight 91.818, kg, PRN Blood Glucose Results, Start date: 10/05/12 17:13:00, Duration: 30 day, Stop date: 11/04/12 17:12:00 Dextrose 2012- No Estela 12.5 gm, Mem oria 50% Syringe 4-20 Young 25 mL, l 22:13: Route: Luke 00 IVP, Drug Form: INJ, Dosing Weight 91.818, kg, PRN, PRN Blood Glucose Results, Start date: 10/05/12 17:13:00, Duration: 30 day, Stop date: 11/04/12 17:12:00 insulin 2012- No Estela 5 unit, Memor ia aspart [...] 4-20 Dionisio tab, l 09:41: Route: PO, [place] 00 Drug form: TAB, ONCE, Dosing Weight 91.818, kg, PRN Anxiety, Start date: 10/05/12 4:41:00, Stop date: 11/04/12 4:40:00 dexamethaso 2013-0 No Dorothy 4 mg, 1 M emoria [...] 30 day, Stop date: 11/03/12 19:53:00 glucagon No Petra 1 mg, Mem oria 4-20 Carmen Route: IM, l 00:54: Grazyna Drug form: Richard n 00 Law PDR/INJ, PRN, Dosing Weight 91.818, kg, PRN Blood Glucose Results, Start date: 10/04/12 19:54:00, Duration: 30 day, Stop date: 11/03/12 19:53:00 Dextrose No Petra 25 gm, 50 Memoria 50% Syringe 4-20 Carmen mL, Route: l 00:54: Grazyna IVP, Drug [place] 00 Law Form: INJ, Dosing Weight 91.818, [...] 10/04/12 19:14:00, Stop date: 10/04/12 19:14:00 magnesium 2012- No Estela 2 gm, 50 Me moria sulfate 19 Young mL, Route: l 21:00: IVPB, Drug Luke 00 form: INJ, Q2H, Dosing Weight 91.818, kg, Total dose = 4 gm, Start date: 10/04/12 16:00:00, Duration: 2 doses or times, Stop date: 10/04/12 18:00:00 Ativan No Maisha L 1 mg, 0.5 M emoria 10-04 Michael mL, Route: l 16:52: IVP, Drug [place] 00 form: INJ, ONCE, Dosing Weight 91.818, kg, PRN Anxiety, Start date: 10/04/12 11:52:00 acetaminoph No Maisha L 1 tab, Memoria en-hydrocod 10-04 Michael Route: PO, l one 325 16:52: Drug Form: Herm robert mg-10 mg 00 TAB, oral tablet Dosing Weight 91.818, kg, Q4H, PRN Pain Score 4-6, Start date: 10/04/12 11:52:00, Duration: 30 day, Stop date: 11/03/12 11:51:00 hydrochloro 2012- No Leah Yen 25 mg, M emoria thiazide 10-04 Thi Mabry Route: PO, l 14:00: Drug [...] 30 day, Stop date: 11/02/12 9:00:00 Lantus 2012- No Estela 30 unit, Memor ia 4-19 [...] Deniz tab, PO, l 13:02: Q8H, 30 Luke 06 tab, Substituti on Allowed docusate Yes [place] 100 mg, 1 Memoria sodium 100 4-19 n Deniz cap, PO, l mg oral 13:01: Q12H, PRN, Herm robert capsule 38 20 cap, as needed for constipati on, Substituti on Allowed, CAP tramadol 50 Yes [place] 1 - 2 tab, Memoria mg oral 4-19 n Deniz PO, Q6H, l tablet 13:00: PRN, 112 [place] 09 tab, Pain, Substituti on Allowed, TAB cyclobenzap Yes [place] 10 mg, 1 Memoria rine 10 mg 4-19 n Deniz tab, PO, l oral tablet 13:00: TID, PRN, H ermann 04 42 tab, Spasm, Substituti on Allowed, TAB olmesartan Yes [place] 40 mg, 1 Memoria 40 mg oral 4-19 n Deniz tab, PO, l tablet 12:59: Daily, 30 Richard n 34 tab, Substituti on Allowed, TAB Dilaudid No [place] 0.3 mg, Memoria 4-19 n Deniz 0.15 mL, l 12:57: Route: IV, [place] 00 Drug form: INJ, Q3H, Dosing Weight 91.818, [...] 4-19 Young tab, l 02:00: Route: PO, Luke 00 Drug form: TAB, Q12H, Dosing Weight 91.818, kg, Start date: 10/03/12 21:00:00, Stop date: 11/02/12 9:00:00 Saline 2012-0 No [facility] 5 ml, Boy tadeo Flush 0.9% - donna Guaman Route: l 02:00: IVP, Drug Form: INJ, Dosing Weight 91.818, kg, Q12H, Start date: 10/03/12 21:00:00, Duration: 30 day, Stop date: 11/02/12 9:00:00 docusate 2012-0 No [facility] 100 mg, 1 Memoria 4-19 donna Guaman cap, l 02:00: Route: PO, [place] 00 Drug form: CAP, Q12H, Dosing Weight 91.818, kg, Start date: 10/03/12 21:00:00, Duration: 30 day, Stop date: 11/02/12 9:00:00 senna 2012-0 No [facility] 8.6 mg, 1 M emoria 4-19 donna Guaman tab, l 02:00: Route: PO, Drug Form: TAB, Dosing Weight 91.818, [...] 10/03/12 18:56:00, Stop date: 11/02/12 18:55:00 Flexeril 2012-0 No [facility] 10 mg, 1 Mem[facility] 4-18 n Deniz tab, l 23:54: Route: PO, Drug form: TAB, TID, Dosing Weight 91.818, kg, PRN Spasm, Start date: 10/03/12 18:54:00, Duration: 30 day, Stop date: 11/02/12 18:53:00 Dextrose 2012-0 No Petra 12.5 gm, Memoria 50% Syringe 4-18 Carmen 25 mL, l 23:18: Grazyna Route: Luke Law IVP, Drug Form: INJ, Dosing Weight 91.818, kg, PRN, PRN Abnormal Lab Result, Start date: 10/03/12 18:18:00, Duration: 30 day, Stop date: 11/02/12 18:17:00 insulin 2012-0 No Petra 5 unit, Me moria regular 100 -18 Carmen 0.05 mL, l units/mL 23:18: Grazyna [...] 11/02/12 18:13:00, SBP > 150 mmHg labetalol 2012-0 No [facility] 20 mg, 4 Mem[facility] 4-18 n Deniz mL, Route: l 23:14: IVP, Drug form: INJ, Q15Min, Dosing Weight 91.818, kg, PRN Elevated BP, Start date: 10/03/12 18:14:00, Duration: 3 doses or times, Stop date: 10/04/12 0:00:00, SBP > 150 mmHg naloxone 2012- No [facility] 0.2 mg, [facility] 4-18 n Deniz 0.5 mL, l 23:04: Route: IVP, Drug form: INJ, Q5Min, PRN Narcotic Reversal, Start date: 10/03/12 18:04:00, Duration: 30 day, Stop date: 11/02/12 18:03:00 hydrALAZINE 2012- No Kahlil 20 mg, Memoria 4-18 Eng Route: l 22:15: IVP, ONCE, Dosing Weight 91.818, kg, Start date: 10/03/12 17:15:00, Stop date: 10/03/12 17:15:00 diazepam 2012-0 No [facility] 5 mg, 1 Memoria 4-18 n Deniz tab, l 21:00: Route: PO, Drug form: TAB, Q8H, Dosing Weight 91.818, kg, Start date: 10/03/12 16:00:00, Duration: 30 day, Stop date: 11/02/12 8:00:00 ondansetron 2012- No Kahlil 4 mg, 2 Memoria 4-18 Eng mL, Route: l 20:54: IVP, Drug form: INJ, ONCE, Dosing Weight 91.818, kg, PRN Nausea & Vomiting, Start date: 10/03/12 15:54:00 promethazin 2012- No Kahlil 6.25 mg, Memoria e 4-18 Eng 0.25 mL, l 20:54: Route: IVPB, Drug form: INJ, ONCE, Dosing Weight 91.818, kg, PRN Nausea & Vomiting, Start date: 10/03/12 15:54:00 flumazenil 2012-0 No Kahlil 0.2 mg, 2 Memoria 4-18 Eng mL, Route: l 20:54: IVP, Drug form: INJ, PRN, Dosing Weight [...] 4-18 Maisha microgram, l 20:54: 0.5 mL, Route: IVP, Drug form: INJ, Q5Min, Dosing [...] [facility] 15 mg, 30 Memoria ne 0.5mg/mL 10-03 donna Guaman mL, Route: l [employer] 17:00: IV, [employer] [place] (15mg/30 00 Dose: 0.3 mL) 15 mg mg, [employer] Lockout: 15 minutes, 4 Hour Limit (In MG): 4.8, Drug Form: INJ, Continuous , Start date: 10/03/12 12:00:00, Stop date: 11/02/12 11:59:00 Saline No [facility] 5 ml, Boy tadeo Flush 0.9% 10-03 donna Guaman Route: l 16:42: IVP, Drug [place] 00 Form: INJ, Dosing Weight 91.818, kg, PRN, PRN Line Flush, Start date: 10/03/12 11:42:00, Duration: 30 day, Stop date: 11/02/12 11:41:00 ondansetron 2012- No [facility] 4 mg, 2 Memoria 4-18 n Deniz mL, Route: l 16:42: IVP, Drug [place] 00 form: INJ, Q8H, Dosing Weight 91.818, kg, PRN Nausea & Vomiting, Start date: 10/03/12 11:42:00, Duration: 30 day, Stop date: 11/02/12 11:41:00 acetaminoph No [facility] 650 mg, Memoria en -18 n Deniz 20.3 mL, l 16:42: Route: PO, Luke 00 Drug form: LIQ, Q4H, Dosing Weight 91.818, kg, PRN Pain 1-3/Temp > 99.5 F, Start date: 10/03/12 11:42:00, Duration: 30 day, Stop date: 11/02/12 11:41:00 acetaminoph No [facility] 1 tab, Memoria en-hydrocod -18 donna Guaman Route: PO, l one 325 16:42: Drug Form: Herm robert mg-10 mg 00 TAB, oral tablet Dosing Weight 91.818, kg, Q4H, PRN Pain Score 4-6, Start date: 10/03/12 11:42:00, Duration: 30 day, Stop date: 11/02/12 11:41:00 amLODipine Yes Substituti M emoria 18 on Allowed l 15:03: Luke 22 NS + KCL No Keron 1,000 mL, M emoria 20mEq/L 18 Gabbie Rate: 70 l 1000ml 10:00: William ml/hr, Richard thompson (Premix) 00 Infuse 1,000 mL over: 14.3 hr, Route: IV, kg, Total Volume: 1,000, Start date: 10/03/12 5:00:00, Duration: 1 day, Stop date: 10/04/12 4:59:00 cefazolin No Keron 2 gm, 100 Memoria 4-18 Gabbie mL, Route: l 10:00: William ROD, Drug Herm robert 00 form: INJ, PRE OP, Start date: 10/03/12 5:00:00, Duration: 1 day, Stop date: 10/04/12 4:59:00 Vicodin HP Yes PO, PRN, Mem oria 10 mg-300 4-16 Substituti l mg oral 21:32: on [place] tablet 18 Allowed, Maintenanc e Dulcolax Yes 1 supp, Memori a Laxative 4-16 LA, Daily, l 21:32: PRN, 5 [place] 02 supp, constipati on, Substituti on Allowed, SUPP clonidine Yes [facility] PO, QID, Memoria 0.1 mg oral 4-16 n Deniz prn l tablet 21:31: bp>160, Luke 30 Substituti on [id number] Benicar HCT Yes 1 tab, PO, Memoria 12.5 mg-40 4-16 Daily, 30 l mg oral 21:30: tab, [place] tablet 43 Substituti on Allowed, Maintenanc e, [...] 4-16 tab, PO, l tablet 21:29: Daily, [place] 45 Substituti on Allowed metFORMIN metFORMIN Yes Unive rs HCl - 500 HCl - 500 ity o f MG Oral MG Oral [place] Tablet Tablet Physici ans Tresiba Tresiba Yes Univers FlexTouch FlexTouch ity o f 100 UNIT/ML 100 UNIT/ML [place] Subcutaneou Subcutaneou P hysici s Solution s Solution ans Pen-injecto Pen-injecto r r Tradjenta 5 Tradjenta 5 Yes U nivers MG Oral MG Oral ity of Tablet Tablet [place] Physici [facility] Trulicity Trulicity Yes Unive rs 0.75 0.75 ity of MG/0.5ML MG/0.5ML [place] Subcutaneou Subcutaneou P hysici s Solution s Solution ans Pen-injecto Pen-injecto r r amLODIPine amLODIPine Yes Uni vers Besylate 5 Besylate 5 ity of MG Oral MG Oral [place] Tablet Tablet Physici ans Carvedilol Carvedilol Yes Uni vers 25 MG Oral 25 MG Oral ity of Tablet Tablet [place] [facility]ici [facility] Cinacalcet Cinacalcet Yes Uni vers HCl - 30 MG HCl - 30 MG i ty of Oral Tablet Oral Tablet [place] [facility] Lisinopril Lisinopril Yes Uni vers 20 MG Oral 20 MG Oral ity of Tablet Tablet [place] [facility] Pravastatin Pravastatin Yes U nivers Sodium 20 Sodium 20 ity o f MG Oral MG Oral [place] Tablet Tablet Physici ans Aspirin 81 Aspirin 81 Yes Uni vers MG TABS MG TABS ity of [place] Physici ans Brilinta 90 Brilinta 90 Yes U nivers MG Oral MG Oral ity of Tablet Tablet [place] [facility] Gabapentin Gabapentin Yes Uni vers 300 MG Oral 300 MG Oral i ty of Capsule Capsule [place] [facility] Furosemide Furosemide Yes Uni vers 20 MG Oral 20 MG Oral ity of Tablet Tablet [place] [facility] Vitamin D3 Vitamin D3 Yes Uni vers TABS TABS ity of [place] Physici ans MiraLax MiraLax Yes Univers POWD POWD ity of [place] Physici ans Accu-Chek Accu-Chek No Accu-Chek [facility] Fior Meter Fior Meter Fior Family Meter Practic e Accu-Chek Accu-Chek No Accu-Chek [place] Fior Plus Fior Plus Fior Plus Family test strips test strips test P ractic strips e Accu-Chek Accu-Chek No Accu-Chek [facility] FastClix FastClix FastClix Fam gail Lancing Lancing Lancing Practi c Device Device Device e Brilinta Brilinta No Brilinta [facility] carvedilol carvedilol No 1 BID carvedilol [facility] 25 mg 25 mg 25 mg Family tablet Take tablet Take tablet Practic 1 tablet 1 tablet Take 1 e twice a day twice a day tablet by oral by oral twice a route. route. day by oral route. cinacalcet cinacalcet No 1 Q1D cinacalcet [facility] 30 mg 30 mg 30 mg Family tablet Take tablet Take tablet Practic 1 tablet 1 tablet Take 1 e every day every day tablet by oral by oral every day route. route. by oral route. Comfort EZ Comfort EZ No Comfort EZ [place] Pen [place] Pen [place] Pen F amily 32 gauge x 32 gauge x [place] 32 Practic " " gauge x e " furosemide furosemide No 1 Q1D furosemide [facility] 20 mg 20 mg 20 mg Family tablet Take tablet Take tablet Practic 1 tablet 1 tablet Take 1 e every day every day tablet by oral by oral every day route. route. by oral route. gabapentin gabapentin No 1capsul TID gabapentin [facility] 300 mg 300 mg e(s) 300 mg Family capsule capsule capsule Practi c Take 1 Take 1 Take 1 e capsule 3 capsule 3 capsule 3 times a day times a day times a by oral by oral day by route. route. oral route. irbesartan irbesartan No 1 Q1D irbesartan [facility] 300 mg 300 mg 300 mg Family tablet Take tablet Take tablet Practic 1 tablet 1 tablet Take 1 e every day every day tablet by oral by oral every day route. route. by oral route. lisinopril lisinopril No lisinopril [facility] Family Practic e Livalo 1 mg Livalo 1 mg No 1 Q1D Livalo 1 [facility] tablet Take tablet Take mg tablet Family 1 tablet 1 tablet Take 1 Pract ic every day every day tablet e by oral by oral every day route. route. by oral route. metformin metformin No 1 Q1D metformin [facility] ER 500 mg ER 500 mg ER 500 mg [facility] 24 hr 24 hr 24 hr Practic tablet,exte tablet,exte tablet,ext e nded nded ended release release release Take 1 Take 1 Take 1 tablet tablet tablet every day every day every day by oral by oral by oral route. route. route. Miralax Miralax No Miralax [facility] Premarin Premarin No .5appli Q1D Premarin [facility] 0.625 0.625 cator(s 0.625 Family mg/gram mg/gram )ful mg/gram Practi c vaginal vaginal vaginal e cream cream cream Insert 0.5 Insert 0.5 Insert 0.5 applicators applicators applicator ful every ful every sful every day by day by day by vaginal vaginal vaginal route. route. route. Restasis Restasis No Restasis [place] [facility] 0.05 % eye 0.05 % eye 0.05 % eye Family drops in a drops in a drops in a Practic dropperette dropperette dropperett e INSTILL 1 INSTILL 1 e INSTILL DROP INTO DROP INTO 1 DROP AFFECTED AFFECTED INTO EYE(S) BY EYE(S) BY AFFECTED OPHTHALMIC OPHTHALMIC EYE(S) BY ROUTE EVERY ROUTE EVERY OPHTHALMIC 12 HOURS 12 HOURS ROUTE EVERY 12 HOURS Tradjenta 5 Tradjenta 5 No 1 Q1D Tradjenta [place] mg tablet mg tablet 5 mg Famil y Take 1 Take 1 tablet Practic tablet tablet Take 1 e every day every day tablet by oral by oral every day route for route for by oral 90 days. 90 days. route for 90 days. Tresiba Tresiba No Tresiba [facility] FlexTouch FlexTouch FlexTouch Family U-200 U-200 U-200 Practic insulin 200 insulin 200 insulin e unit/mL (3 unit/mL (3 200 mL) mL) unit/mL (3 subcutaneou subcutaneou mL) s pen Give s pen Give subcutaneo 20 units in 20 units in us pen AM and AM and Give 20 increase as increase as units in directed: directed: AM and TDD 50 TDD 50 increase as directed: TDD 50 Trulicity Trulicity No 1.5mg Q1W Trulicity [facility] 1.5 mg/0.5 1.5 mg/0.5 1.5 mg/0.5 Family mL mL mL Practic subcutaneou subcutaneou subcutaneo e s pen s pen us pen injector injector injector Inject 1.5 Inject 1.5 Inject 1.5 mg every mg every mg every week by week by week by subcutaneou subcutaneou subcutaneo s route as s route as us route directed directed as for 90 for 90 directed days. days. for 90 days. Vitamin D3 Vitamin D3 No Vitamin D3 [facility] Immunizations Ordered Immunization Filled Immunization Date Status Commen ts Source Name Name influenza, influenza, 2020-03-27 Completed [facility] Family injectable, injectable, 00:00:00 Practice quadrivalent quadrivalent Vital Signs Vital Name Observation Time Observation Value Comments Source BP Diastolic 2020-04-14 88 mm[Hg] [facility] Family 00:00:00 Practice Height 2020-04-14 65 [in_i] [facility] Family 00:00:00 Practice BMI (Body Mass 2020-04-14 33.6 kg/m2 [facility] Famil y Index) 00:00:00 Practice BP Systolic 2020-04-14 130 mm[Hg] [facility] Family 00:00:00 Practice Body Weight 2020-04-14 202 [lb_av] [facility] Family 00:00:00 Practice Systolic blood 2020-01-26 144 mm[Hg] Location: [facility]; [facility] 14:56:00 Position: [place] [facility] Sitting Diastolic blood 2020-01-26 66 mm[Hg] Location: [facility] 14:56:00 Position: [place] [facility] Sitting Body height 2020-01-26 63 [in_us] [facility] 14:56:00 [place] [facility] s Weight 2020-01-26 205.25 [lb_av] [facility] 14:56:00 [place] [facility] Body mass index 2020-01-26 36.36 kg/m2 [place] o f (BMI) [Ratio] 14:56:00 [place] [facility] Body temperature 2020-01-26 98.3 [degF] Method: [facility] 14:56:00 Temporal [place] [facility] Heart Rate 2020-01-26 70 /min Location: [facility] 14:56:00 Brachial [place] [facility] Artery; Quality: Normal Respiratory rate 2020-01-26 16 /min Quality: Normal [facility] 14:56:00 [place] [facility] Systolic blood 2019-12-03 125 mm[Hg] [place] pressure 10:13:00 [facility] Diastolic blood 2019-12-03 58 mm[Hg] [place] pressure 10:13:00 [facility] Heart rate 2019-12-03 60 /min [place] 10:13:00 [facility] Body weight 2019-12-03 99.791 kg [place] 10:13:00 [facility] BMI 2019-12-03 36.61 kg/m2 [place] 10:13:00 [facility] Body height 2019-06-03 165.1 cm [place] 11:12:00 [facility] Temperature Oral 2016-02-14 97.5 F [facility] (F) 21:00:00 Heart Rate 2016-02-14 [facility] 21:00:00 Respitory Rate 2016-02-14 [facility] 21:00:00 Systolic (mm Hg) 2016-02-14 [facility] 21:00:00 Diastolic (mm Hg) 2016-02-14 [facility] 21:00:00 Systolic (mm Hg) 2016-02-14 [facility] 17:00:00 Diastolic (mm Hg) 2016-02-14 [facility] 17:00:00 Respitory Rate 2016-02-14 [facility] 17:00:00 Temperature Oral 2016-02-14 97.6 F [facility] (F) 17:00:00 Heart Rate 2016-02-14 [facility] n 17:00:00 Temperature Oral 2016-02-14 97.8 F [facility] (F) 13:00:00 Respitory Rate 2016-02-14 [facility] 13:00:00 Heart Rate 2016-02-14 [facility] n 13:00:00 Systolic (mm Hg) 2016-02-14 [facility] 13:00:00 Diastolic (mm Hg) 2016-02-14 [facility] 13:00:00 Weight 2016-02-10 [facility] 22:04:00 Weight 2016-02-08 [facility] 20:54:00 BMI Calculated 2016-02-08 [facility] 20:54:00 Height 2016-02-08 165.1 cm [facility] 20:54:00 Weight 2016-02-08 [facility] 18:23:00 Height 2016-02-08 172.72 cm [facility] 18:23:00 BMI Calculated 2016-02-08 [facility] 18:23:00 Respitory Rate 2016-01-19 [facility] 17:00:00 Systolic (mm Hg) 2016-01-19 [facility] 17:00:00 Diastolic (mm Hg) 2016-01-19 [facility] 17:00:00 Temperature Oral 2016-01-19 98.1 F [facility] (F) 17:00:00 Heart Rate 2016-01-19 [facility] 17:00:00 Weight 2016-01-19 [facility] 13:10:00 Temperature Oral 2016-01-19 99.5 F [facility] (F) 13:00:00 Heart Rate 2016-01-19 [facility] 13:00:00 Respitory Rate 2016-01-19 [facility] 13:00:00 Systolic (mm Hg) 2016-01-19 [facility] 13:00:00 Diastolic (mm Hg) 2016-01-19 [facility] 13:00:00 Systolic (mm Hg) 2016-01-19 [facility] 10:37:00 Diastolic (mm Hg) 2016-01-19 [facility] 10:37:00 Heart Rate 2016-01-19 [facility] 10:37:00 Respitory Rate 2016-01-19 [facility] 09:00:00 Temperature Oral 2016-01-19 97.3 F [facility] (F) 09:00:00 BMI Calculated 2016-01-11 [facility] 22:27:00 Weight 2016-01-11 [facility] 22:27:00 Height 2016-01-11 165.1 cm [facility] 22:27:00 Respitory Rate 2012-10-06 [facility] 16:00:00 Systolic (mm Hg) 2012-10-06 [facility] 16:00:00 Diastolic (mm Hg) 2012-10-06 [facility] 16:00:00 Respitory Rate 2012-10-06 [facility] 15:00:00 Systolic (mm Hg) 2012-10-06 [facility] 15:00:00 Diastolic (mm Hg) 2012-10-06 [facility] 15:00:00 Systolic (mm Hg) 2012-10-06 [facility] 14:00:00 Diastolic (mm Hg) 2012-10-06 [facility] 14:00:00 Respitory Rate 2012-10-06 [facility] 14:00:00 Temperature Oral 2012-10-06 96.3 F [facility] (F) 08:33:00 Temperature Oral 2012-10-06 97.9 F [facility] (F) 04:00:00 Temperature Oral 2012-10-05 97.6 F [facility] (F) 09:05:00 Weight 2012-10-03 [facility] 23:01:00 Height 2012-10-03 165.1 cm [facility] 23:01:00 Heart Rate 2012-10-03 [facility] 14:28:00 Heart Rate 2012-10-01 Elvira Ramos n 18:53:00 Height 2012-10-01 165.1 cm Elvira Ramos n 18:53:00 Weight 2012-10-01 Elvira Ramos n 18:53:00 Procedures Procedure Date / Time Performed Performing Clinician Betty e Back Surgery 2016-01-17 00:00:00 [facility] Chas lester Practice Knee Replacement 2014-08-16 00:00:00 [facility] Durga reynolds Practice Operation on Neck 2012-09-16 00:00:00 [facility] Gustavo lanza [facility] Repair of Perforated 2012-03-18 00:00:00 [facility] Colon [facility] Colonoscopy 2010-06-18 00:00:00 [facility] Chas lester [facility] Operation <sup>1</sup> [facility] Cervical discectomy [facility] kowalski Knee [facility] [place] replacement<sup>1</sup> Operation<sup>2</sup> [facility] Vanessa ermrobert Plan of Care Planned Activity Planned Date Details Comments Source Diagnostic Test 2020-04-14 glucose, fingerstick, [facility] benny Family Pending 00:00:00 blood [code = Practice glucose, fingerstick, blood] Diagnostic Test 2020-04-14 hemoglobin A1C, [facility] Etta briggs Pending 00:00:00 fingerstick [code = Practice hemoglobin A1C, fingerstick] Future Scheduled 2020-01-17 INFLUENZA VACCINE [place] [facility] 00:00:00 [code = INFLUENZA VACCINE] Future Scheduled 2006 65+ PNEUMOCOCCAL [place] [facility] 00:00:00 VACCINE (1 of 1 - PPSV23) [code = 65+ PNEUMOCOCCAL VACCINE (1 of 1 - PPSV23)] Future Scheduled 1991-12-13 SHINGLES VACCINES [place] [facility] 00:00:00 (#1) [code = SHINGLES VACCINES (#1)] Future Scheduled 1951-12-13 DIABETES: RETINAL EYE [place] [facility] 00:00:00 EXAM [code = DIABETES: RETINAL EYE EXAM] Future Scheduled 1950-12-13 DIABETIC FOOT EXAM [place] [facility] 00:00:00 [code = DIABETIC FOOT EXAM] Future Scheduled 1950-12-13 URINE MICROALBUMIN [place] [facility] 00:00:00 [code = URINE MICROALBUMIN] Future Appointment 2021-01-24 Armin RODRIGUEZ [facility] 13:00:00 Physicians Encounters Start End Encounter Admission Attending Care Care Encounter Source Date/Time Date/Time Type Type Clinicians Facility Department ID 2020-04-14 2020-04-14 [facility] [place] - [id number] [facility] 00:00:00 00:00:00 Samantha Hernandez Charity Sheldon - Matteo yousif MD: [id number] VM_HOU_Dani e Shadow [facility], [facility] [address], [place] [address] , Ph. 2020-01-26 2020-01-26 [facility] [id number] Univers 15:15:00 15:15:00 tMICHAEL BERMAN, - [facility] Armin RODRIGUEZ [facility] Armin Griffin Physici ans 2019-12-03 2019-12-03 Outpatient PETAK, [facility] [id number] [address] [place] [address] 00:00:00 00:00:00 LORA Floyd [facility] 2016-02-08 2016-02-14 Outpatient Riley Whyte [facility] [id number] 10:51:00 20:30:00 Jese 2016-01-11 2016-01-19 Outpatient Coreen [facility] [id number] 16:33:00 16:30:00 Jean Paul Quiroga 2016-01-10 2016-01-10 Outpatient Ranjit Drew [facility] [id number] 23:00:00 23:00:00 Zhdash 07 2014-03-25 2014-03-25 Outpatient LIBIA Thomas SUKUMAR [id number] 09:57:00 23:59:00 Keron Cartwright 2013-09-17 2013-09-17 Outpatient LIBIA Thomas SUKUMAR [id number] 11:29:00 23:59:00 Keron Cartwright Results Test Description Test Time Test Comments Results Result Comments Source CHEM PANEL 2016-01-17 1.8 [facility] 09:05:00 CHEM PANEL 2016-01-17 2.4 [facility] nn 09:05:00 CHEM PANEL 2016-01-17 30 [facility] nn 09:05:00 CHEM PANEL 2016-01-17 240 [facility] nn 09:05:00 CHEM PANEL 2016-01-17 0.80 [facility] nn 09:05:00 CHEM PANEL 2016-01-17 20 [facility] 09:05:00 CHEM PANEL 2016-01-17 73 [facility] nn 09:05:00 CHEM PANEL 2016-01-17 2.8 [facility] nn 09:05:00 CHEM PANEL 2016-01-17 10.5 [facility] nn 09:05:00 CHEM PANEL 2016-01-17 4.3 [facility] 09:05:00 CHEM PANEL 2016-01-17 107 [facility] 09:05:00 CHEM PANEL 2016-01-17 143 [facility] nn 09:05:00 CHEM PANEL 2016-01-17 10.3 [facility] 09:05:00 HEMATOLOGY 2016-01-17 1.3 [facility] 09:05:00 HEMATOLOGY 2016-01-17 4.4 [facility] 09:05:00 HEMATOLOGY 2016-01-17 0.3 [facility] 09:05:00 HEMATOLOGY 2016-01-17 0.6 [facility] 09:05:00 HEMATOLOGY 2016-01-17 0.5 [facility] 09:05:00 HEMATOLOGY 2016-01-17 4.9 [facility] 09:05:00 HEMATOLOGY 2016-01-17 9.1 [facility] 09:05:00 HEMATOLOGY 2016-01-17 18.9 [facility] 09:05:00 HEMATOLOGY 2016-01-17 66.6 [facility] 09:05:00 HEMATOLOGY 2016-01-17 9.4 [facility] 09:05:00 HEMATOLOGY 2016-01-17 168 [facility] 09:05:00 HEMATOLOGY 2016-01-17 13.4 [facility] 09:05:00 HEMATOLOGY 2016-01-17 32.8 [facility] 09:05:00 HEMATOLOGY 2016-01-17 09:05:00 Test Item Value Reference Range Interpretation Comme nts MCH (test code = MCH) 30.7 pg 27.0-31.0 [facility] [id number] 09:05:0093.6[facility] HermannHEMATOLOGY 2016-01-17 09:05:006.6[facility] YxymyagQILLSRUDNA2636-30-18 09:05:0041.0[facility] MqsaqkmKKHNCFVCSS9713-84-04 09:05:0013.4[facility] PkjaqxzSJCELQTYZY9067-24-35 09:05:004.38[facility] HermannSPECIAL YLQCIOORQ9804-08-42 09:05:0010.3[facility] HermannCHEM [id number] 09:17:0081[facility] HermannCHEM KHLPG5967-05-23 09:17:000.73[facility] HermannCHEM [id number] 09:17:007[facility] HermannCHEM [id number] 09:17:005.0[facility] HermannCHEM GDYMJ2722-74-23 09:17:0073 [facility] HermannCHEM [id number] 09:17:0029[facility] HermannCHEM PANEL 2016-01-15 09:17:000.7[facility] HermannCHEM [id number] 09:17:002.7[facility] HermannCHEM [id number] 09:17:0010.9[facility] HermannCHEM URPVW7897-84-18 09:17:0010.0[facility] HermannCHEM [id number] 09:17:42884Tjydhnhp HermannCHEM [id number] 09:17:003.9[facility] HermannCHEM [id number] 09:17:0020 [facility] HermannCHEM EAIGL3009-11-80 09:17:98048Alcrkrsp HermannCHEM PANEL 2016-01-15 09:17:08959Zkzlirer HermannCHEM [id number] 09:17:0029[facility] HermannCHEM [id number] 09:17:0027[facility] HermannCHEM VMUGG6710-70-41 09:17:001.2[facility] HermannCHEM LZXLO9273-99-29 09:17:002.3[facility] [place] LGGIABGKQF2912-08-39 09:17:0011.7[facility] OtpvoqiUPMWEBDQMN4504-81-77 09:17:00 4.9Memorial StqjkzzJHRYDNGCMW9756-52-59 09:17:000.4[facility] HermannHEMATOLOGY 2016-01-15 09:17:001.3[facility] MqeoyffBDPXCPSXYU6322-46-47 09:17:001+ *ABN*(01/15/16 4:17 AM)[facility] HmsuioaJOPLSICOLK6053-53-58 09:17:0067.7[facility] EjwmfpvXDVHAWLJFK6485-58-23 09:17:0017.4[facility] LhsfixbLXOKYIECYK7677-25-29 09:17:002.8[facility] ZttkxmtTZCZAGJHSI6411-95-16 09:17:000.0[facility] YEPWOEQDVU9432-04-62 09:17:000.2[facility] DwxpyiwXQGGMSMCRT3373-03-75 09:17:000.9 [facility] OggxbmaTNRBJVNSWW2893-79-81 09:17:99928Zwvjoyod HermannHEMATOLOGY 2016-01-15 09:17:007.3[facility] HmiymprXBFZGMASMK8205-38-26 09:17:0039.8[facility] PmepjouHHASFGNQWI2863-15-99 09:17:0013.0[facility] DljxjzgWWKTJCTNDP2479-59-81 09:17:004.23[facility] PsiawsbDSAXAWTDWA1145-62-91 09:17:0032.8[facility] QKGAMFSJSH1347-81-58 09:17:0094.0[facility] HpgrdolFHIQTPLUOQ9141-31-36 09:17:00 Test Item Value Reference Range Interpretation Comments MCH (test code = MCH) 30.8 pg 27.0-31.0 [facility] KqllmjxEEWBMSPTRA7936-75-64 09:17:0013.5[facility] HermannHEMATOLOGY 2016-01-15 09:17:009.6[facility] HermannCHEM HFZQD6980-39-51 10:06:97630Ziruywcr HermannCHEM GVBYE7810-16-09 10:06:0015[facility] HermannCHEM SRYOK5049-62-60 10:06:0011.7[facility] HermannCHEM CZSBS0784-20-55 10:06:0010.1[facility] CHEM PERXR6082-13-22 10:06:003.7[facility]annCHEM PFQJZ7536-07-81 10:06:12334 [facility] IPTRX9939-39-73 10:06:0028[facility]annCHEM PANEL 2016-01-14 10:06:33212Hsprinez HermannCHEM UPAHA1367-05-65 10:06:000.70[facility]annCHEM RLRMO9656-34-49 10:06:0086[facility]annCHEM HRQHH6899-32-72 10:43:004.9[facility]annCHEM LPFGV4504-71-31 10:43:0060[facility]annCHEM TYOEW2869-07-32 10:43:000.4[facility]annCHEM NZEYX4175-68-02 10:43:0022 [facility]CHE[facility] FVJWW6137-15-55 10:43:0012[facility]annCHEM PANEL 2016-01-13 10:43:002.7[facility]annCHEM SFUHG4912-88-72 10:43:002.2[facility]annCHEM PZOQF0656-11-07 10:43:001.2[facility]annCHEM AYOPO9705-55-37 10:43:0023[facility] XofodwgZLSEYJWGQS1250-94-34 10:43:004.18[facility] ACURFJOFDU0639-68-28 10:43:006.7[facility] JtpgrogHHSXKXBPXD5423-40-91 10:43:009.3 [facility] WarnnbdLDOYLWWEOA9481-33-72 10:43:25656Immtptxr HermannHEMATOLOGY 2016-01-13 10:43:0012.8[facility] NuvpvspGQIMMAADFN0117-17-95 10:43:00 Test Item Value Reference Range Interpretation Comments MCH (test code = MCH) 30.7 pg 27.0-31.0 [facility] NgrlzghZTVCKENINT6161-87-84 10:43:0093.8[facility] HermannHEMATOLOGY 2016-01-13 10:43:0039.2[facility] FbbmvzgLJNQIHMQJY8801-04-20 10:43:0012.8[facility] DsuqhbsUQYBKSIDWB7092-73-97 10:43:0032.8[facility] VklwpifDFSYJNAQCS1652-95-28 10:43:0021.4[facility] WweilydBFKVPMJSJI4691-42-88 10:43:0064.1[facility] [place] RAWMPDHCCA9570-48-40 10:43:003.1[facility] YvvtxqmUFIGFBEDOM9034-44-15 10:43:00 10.9[facility] EvorqtbNMIYYGRMXJ8089-76-88 10:43:000.5[facility]annHEMATOLOGY 2016-01-13 10:43:000.0[facility] RnhlqjgOAPNYHROLJ6479-07-29 10:43:000.2[facility] TzfpaxtXJANHAUGJF2061-92-88 10:43:000.7[facility] GsfoxbvAECJFZYRVF4719-07-37 10:43:001.4[facility] DwgdkcjGFYAISDAOQ9134-10-38 10:43:004.3[facility]annCHEM QZGEP9595-17-08 23:48:001.8[facility]annCHEM BWASA1050-85-73 23:48:002.0 [facility] ZlhayliQAJHBLFGSA3837-09-00 23:48:000.0[facility]annHEMATOLOGY 2016-01-11 23:48:001+ *ABN*(01/11/16 6:48 PM)[facility] ZeqwizhXJEQWFJJDF1402-35-91 23:48:000.99[facility] MolthxeBVQVZAKSRP0106-68-17 23:48:00 Test Item Value Reference Range Interpretation Comments PTT (test code = PTT) 23.5 s 22.9-35.8 [facility] HeyebubHXPIDANYPG9147-49-44 23:48:00 Test Item Value Reference Range Interpretation Comments PT (test code = PT) 13.4 s 12.0-14.7 [facility] PFHKBGR2915-14-57 12:49:85878Afdxyqsg Luke BEDSIDE GLUCOSE AMINPSX6433-21-95 08:39:65390Zfoqohht VgeldqtSRDZLKBQW0615-03-15 07:19:0014.3[facility] KufhcjpQVWOOBGIK4858-81-46 07:19:0075[facility] [place] [facility] LWETEHFNI1975-15-80 07:19:08711Fqfzuewn SubyqisLZFEIYNSR4779-08-18 07:19:50571 [facility] SzafaqdABRIRBCHF4953-04-57 07:19:0025[facility] HermannCHEMISTRY 2012-10-06 07:19:0010.7[facility] VrpjiejKXUPCAEHE0428-84-63 07:19:004.3[facility] XfwqsepUIKHJUFER9886-79-32 07:19:62267Xucvopkz SzospppSXUDAVSQZ0955-08-00 07:19:000.8[facility] UqogodoRTYHDIASA9078-87-81 07:19:0020[facility] QKHWAAUUDP1592-54-43 07:19:0014.0[facility] McclgeeYDLUYGJZCM0951-58-58 07:19:00 42.5[facility] UmvkzykAZWXGOIIEG2465-32-43 07:19:0092.3[facility] HermannHEMATOLOGY 2012-10-06 07:19:00 Test Item Value Reference Range Interpretation Comments MCH (test code = MCH) 30.5 pg 27.0-31.0 N [facility] YrqbxyvCJYEFPQZDT5688-62-63 07:19:0033.0[facility]annHEMATOLOGY 2012-10-06 07:19:0014.6[facility] TmngphsYHLIPVBLVA3193-47-63 07:19:67221Azvjqbih CbpmedmJHDWVPGDXB8595-55-21 07:19:0010.0[facility] OxzwtrjBTYPTDAMPX5733-97-21 07:19:004.60[facility] VmwdunlHCVLUHTVEG0558-95-71 07:19:0013.0[facility] BEDSIDE GLUCOSE FFFSRQB5547-27-95 04:41:74835Hwoxplwg IzdurydHYKZHJCMH9643-97-03 07:50:322.0[facility] VmwkanxXEBBUTSQNA9815-72-09 06:52:38Yellow *NA*(10/04/2012 01:52:38)[facility] CkzkqkkWSNJSSPRCM1468-13-10 06:52:38Occasional /HPF *NA*(10/04/2012 01:52:38)[facility] ZswpeccWJIHCKMKNL4839-92-42 06:52:38Occasional /LPF *NA*(10/04/2012 01:52:38)[facility] BsbsptxDZVPRXSPFL1406-89-43 06:52:386 [facility] OequipgZKYTTMOZLW3628-24-71 06:52:38Small *ABN*(10/04/2012 01:52:38) [facility] SmmomfsZJYSSBPAHT5261-31-41 06:52:3812[facility] HermannURINALYSIS 2012-10-04 06:52:3810 mg/dL *ABN*(10/04/2012 01:52:38)[facility] HermannURINALYSIS 2012-10-04 06:52:385.0[facility] MbkijwsZFCGGAMZCB1520-63-54 06:52:381.022[facility] FftykalBVDXSUWWRZ4816-86-35 06:52:38Slight *ABN*(10/04/2012 01:52:38)[facility] NgkzmhiVHBSLFMGGI6466-69-84 06:52:38Negative (10/04/2012 01:52:38)[facility] LasdjwlRFQAFPRCCG3986-43-76 06:52:38Small *ABN*(10/04/2012 01:52:38)[facility] LbxxfeiWJAWHGHKYG6397-33-63 06:52:38Negative *NA*(10/04/2012 01:52:38)[facility] StqvrviYDKLDKQBGV7696-08-67 06:52:38Negative mg/dL *NA*(10/04/2012 01:52:38) [facility] ZfshghoAQPCKGGDKQ2611-84-85 06:52:3830 mg/dL *ABN*(10/04/2012 01:52:38) [facility] EizeyyyKRBXHIAOF0412-64-09 06:52:003.5[facility] HermannCHEMISTRY 2012-10-04 06:52:0013.4[facility] WwziyhoYPPIWOVOW3145-92-53 06:52:51726Zqskoqif HgdqignUIGUTOQJD5218-30-39 06:52:000.9[facility] DevilxzALBRKZXKM1417-24-14 06:52:0017[facility] DhgzepvBVLXKICKH6534-16-62 06:52:87626Umecmoiy [place] YMMRKFYXC5053-67-96 06:52:68299Ujxdvkfw BonpowgIRAYTWRJS1802-90-27 06:52:009.7 [facility] TvyrirjNGXAAHXVT5584-97-13 06:52:004.4[facility] HermannCHEMISTRY 2012-10-04 06:52:0026[facility] IdfyftrXNAGLCOUT9874-63-95 06:52:0065[facility] HbkwugrTHXBAIDGZ0105-41-70 06:52:001.5[facility] UysmmqyXMDDFSJHYW2007-56-08 06:52:004.85[facility] WbqhnozHBXPRQRXXB9805-16-51 06:52:009.2[facility] CHGXIAZSUF6425-11-03 06:52:0014.9[facility] GvnezirSCLKWKIGKD8191-68-42 06:52:00 33.3[facility] NitglszAIWXMRSMDQ0143-88-22 06:52:00 Test Item Value Reference Range Interpretation Comments MCH (test code = MCH) 30.7 pg 27.0-31.0 N [facility] FetlaivGXFKAQBTAJ9577-95-79 06:52:0044.9[facility] HermannHEMATOLOGY 2012-10-04 06:52:0092.4[facility] LmxnroaKXPIPROCZW5998-08-86 06:52:0014.5[facility] WrejndbAJIQMSRBPM1630-82-51 06:52:36266Htxdkpuf BpbhhnaPYKFXOGSFR1385-10-94 06:52:009.5[facility] MnheiyiMLHVTHWMWM1023-70-45 06:52:007.7[facility] STORUSIZTZ0845-51-64 06:52:000.3[facility] GvbpnwdFLRZFENYSU8142-96-97 06:52:000.6 [facility] IrhwlfkSAGCMJHWPL7542-47-97 06:52:000.9[facility] HermannHEMATOLOGY 2012-10-04 06:52:009.5[facility] RrglemxHAKZQQPJLN4687-16-58 06:52:0084.1[facility] GupfgrpLWQMGEHUIY7035-38-18 06:52:006.0[facility] SlbzyykCMWLKLVHIA2129-78-25 06:52:000.1[facility] PgjdcoqMDEMFIQJG4276-96-55 19:08:29806Ycpdufgw [place] NWHMENKRH4757-70-24 19:08:000.7[facility] ZqgaatpCYKHADNLQ5942-11-08 19:08:0024 [facility] MkidegeQKIXBUQMJ2403-26-28 19:08:00-1[facility] HermannCHEMISTRY 2012-10-03 19:08:0035.0[facility] IlioqxiWWAQOHWMC0968-74-88 19:08:0096.0[facility] GpnpesiAZBQOWYRU8925-04-72 19:08:003.4[facility] LmpjikdCEEWFUHTZ3311-73-73 19:08:91796Kguleogj SghruvdIDNXXSSFO1132-55-00 19:08:0040[facility] ZZLODDKDG7522-97-81 19:08:001.26[facility] TgsmvhkGZKGCOFIW4458-22-05 19:08:0037.0 [facility] NaomtjeXCCMWGTHQ7287-19-91 19:08:0085[facility] HermannCHEMISTRY 2012-10-03 19:08:007.39[facility] TvpodveSZOMJEZWS3359-00-45 17:27:0044[facility] NosxhmyXILYHOAZI7599-99-20 17:27:001[facility] HtkconpJCASDMKKR8923-22-30 17:27:00 26[facility] EtijhvoHHDMDVEPW0653-33-32 17:27:93431Poguqwhl HermannCHEMISTRY 2012-10-03 17:27:60116Xwnmzrim FyglgwnEYJYKKPZJ9558-36-74 17:27:001.29[facility] CpaepunXSSZOAUEL7817-62-34 17:27:0099.0[facility] UxltzvgNDQKIMTPG6141-06-63 17:27:003.9[facility] NrsejrdFNGVGCGHV6670-57-90 17:27:0038.0[facility] BLTVZDIXP9216-04-31 17:27:007.38[facility] GwaweveOMHWUIZAW2760-47-84 17:27:0037.0 [facility] RamckruPIESTCIDJ0864-57-62 17:27:17161Wzjxnvnz HermannCHEMISTRY 2012-10-03 17:27:001.1[facility] HermannBLOOD BANK DJKEFUH1206-00-99 14:25:00 Negative (10/03/2012 09:25:00)[facility]
[2020-05-17 22:14] LABS: Absolute Lymphocytes (CBC) 0.7 K/uL (0.7-4.9); Basophils % 0.5 % (0-1.3); Hematocrit 45.1 % (36.0-45.0); Lymphocytes % 18.9 % (15.3-44.8); MPV 9.9 fL (7.6-11.3); RBC Red Blood Cell Count 5.16 M/uL (3.86-4.86)
[2020-05-17] MEDS ORDERED: CEFTRIAXONE/SWI 1gm 1 GM/10 ML SYR ONE (22:53)
[2020-05-17] MEDS ORDERED: dexAMETHasone 10 MG/ML VIAL ONE (22:53)
[2020-05-17] MEDS ORDERED: NA CHLORIDE 0.9% 1,000 ML ONE (22:53)
[2020-05-17] MEDS ORDERED: AZITHROMYCIN 500 MG INJ IVPB ONE (22:55)
[2020-05-17] MEDS ORDERED: NA CHLORIDE 0.9% 250 ML ONE (22:55)
[2020-05-17 23:18] LABS: ALT/SGPT 21 U/L (12-78); AST/SGOT 29 U/L (15-37); Alkaline Phosphatase 88 U/L (45-117); BUN Blood Urea Nitrogen 25 mg/dL (7-18); Bicarbonate 27 mmol/L (21-32); Bilirubin Total 0.5 mg/dL (0.2-1.0); Glucose Level 217 mg/dL (74-106); NT PRO-BNP 818 pg/mL (<450); Potassium 4.5 mmol/L (3.5-5.1); Protein, Total 6.8 g/dL (6.4-8.2); Sodium Level 136 mmol/L (136-145); Troponin (Emerg Dept Use Only) < 0.02 ng/mL (0.0-0.045)
--- NOTE | 2020-05-17 23:28 | ER ---
Nurse's Notes [facility] Name: Kate Love Age: 79 yrs Sex: Female : 1940 Arrival Date: 05/17/2020 Time: 21:14 Bed 6 Private MD: Diagnosis: Pneumonia due to other specified infectious organisms Presentation: 05/17 21:25 Chief complaint: Patient states: fever, generalized weakness and productive cough for aj1 the past week. Patient states that she has not been around any known positive COVID patients, but because of her symptoms she had a COVID test at [facility] yesterday, she has not yet gotten the results. Respirations are even and unlabored, O2 sat 97% on room air, patient denies shortness of breath. Coronavirus screen: Client denies travel out of the [place] in the last 14 days. cough unrelated to allergies, fever, The client indicates previous COVID test results are pending. Ebola Screen: Patient denies travel to an Ebola-affected area in the 21 days before illness onset. Initial Sepsis Screen: Does the patient meet any 2 criteria? No. Patient's initial sepsis screen is negative. Does the patient have a suspected source of infection? Yes: Productive cough/pneumonia. Risk Assessment: Do you want to hurt yourself or someone else? Patient reports no desire to harm self or others. Onset of symptoms was April 2020. 21:25 Method Of Arrival: EMS: [facility] aj1 21:25 Acuity: AURELIA 3 aj1 Triage Assessment: 21:30 General: Appears in no apparent distress. comfortable, Behavior is calm, cooperative, aj1 appropriate for age. Pain: Complains of pain in generalized body aches. Historical: - Allergies: 21:30 No Known Allergies; aj1 - PMHx: 21:30 Asthma; Diabetes - IDDM; Hyperlipidemia; Hypertension; Myocardial infarction; cardiac aj1 stent x2; - Immunization history:: Adult Immunizations up to date. - Social history:: Smoking status: Patient denies any tobacco usage or history of. Patient/guardian denies using alcohol, street drugs, The patient lives with family. - Family history:: not pertinent. Screenin:30 Abuse screen: Denies threats or abuse. Denies injuries from another. Nutritional aj1 screening: No deficits noted. Tuberculosis screening: No symptoms or risk factors identified. 05/18 01:15 Fall Risk None identified. wh Assessment: 05/17 21:30 General: Appears in no apparent distress. uncomfortable, Behavior is calm, cooperative, aj1 appropriate for age. Pain: Complains of pain in generalized body aches Pain currently is 5 out of 10 on a pain scale. Neuro: Level of Consciousness is awake, alert, obeys commands, Oriented to person, place, time, situation. Cardiovascular: Heart tones S1 S2 present Patient's skin is warm and dry. Rhythm is regular. Respiratory: Reports cough that is productive, Airway is patent Respiratory effort is even, unlabored, Respiratory pattern is regular, symmetrical, Breath sounds are diminished bilaterally. Denies shortness of breath. GI: No signs and/or symptoms were reported involving the gastrointestinal system. : No signs and/or symptoms were reported regarding the genitourinary system. EENT: No signs and/or symptoms were reported regarding the EENT system. Derm: No signs and/or symptoms reported regarding the dermatologic system. Skin is pink, warm \T\ dry. normal. Musculoskeletal: No signs and/or symptoms reported regarding the musculoskeletal system. Circulation, motion, and sensation intact. 22:24 Reassessment: Patient appears in no apparent distress at this time. No changes from aj1 previously documented assessment. Patient and/or family updated on plan of care and expected duration. Pain level reassessed. Patient is alert, oriented x 3, equal unlabored respirations, skin warm/dry/pink. 23:30 Reassessment: Patient and/or family updated on plan of care and expected duration. Pain aj1 level reassessed. General: Appears in no apparent distress. uncomfortable, Behavior is calm, cooperative, appropriate for age. Neuro: Level of Consciousness is awake, alert, obeys commands, Oriented to person, place, time, situation. Cardiovascular: Patient's skin is warm and dry. Respiratory: Airway is patent Respiratory effort is even, unlabored, Respiratory pattern is regular, symmetrical. Derm: Skin is pink, warm \T\ dry. normal. Musculoskeletal: Amputation of. 05/18 00:30 Reassessment: Patient appears in no apparent distress at this time. No changes from aj1 previously documented assessment. Patient and/or family updated on plan of care and expected duration. Pain level reassessed. Patient is alert, oriented x 3, equal unlabored respirations, skin warm/dry/pink. 01:26 Reassessment: Patient and/or family updated on plan of care and expected duration. Pain aj1 level reassessed. General: Appears in no apparent distress. uncomfortable, Behavior is calm, cooperative, appropriate for age. Neuro: Level of Consciousness is awake, alert, obeys commands, Oriented to person, place, time, situation. Cardiovascular: Patient's skin is warm and dry. Respiratory: Airway is patent Respiratory effort is even, unlabored, Respiratory pattern is regular, symmetrical. Derm: Skin is pink, warm \T\ dry. normal. Musculoskeletal: Circulation, motion, and sensation intact. Vital Signs: 05/17 21:25 BP 153 / 96; Pulse 75; Resp 20; Temp 99.5; Pulse Ox 97% on R/A; aj1 22:26 BP 155 / 66; Pulse 75; Resp 20; Pulse Ox 94% on R/A; aj1 22:35 Weight 89.81 kg (R); aj1 23:30 BP 167 / 79; Pulse 72; Resp 20; Pulse Ox 93% on R/A; aj1 05/18 00:30 BP 170 / 71; Pulse 72; Resp 20; Pulse Ox 94% on R/A; aj1 01:15 BP 163 / 65; Pulse 74; Resp 20; Pulse Ox 95% on R/A; aj1 ED Course: 05/17 21:14 Patient arrived in ED. mw2 21:15 Nadia Love MD is Attending Physician. ma2 21:24 Jennifer Thomas, RN is Primary Nurse. aj1 21:29 Triage completed. aj1 21:30 Arm band placed on Patient placed in an exam room. aj1 21:30 Patient has correct armband on for positive identification. Bed in low position. Call aj1 light in reach. Side rails up X 1. 21:30 No provider procedures requiring assistance completed. Inserted saline lock: 20 gauge aj1 in right antecubital area, using aseptic technique. Blood collected. 22:06 CXR XRAY In Process Unspecified. EDMS 22:51 school lunch monitor on. Pulse ox on. NIBP on. jp3 22:51 Warm blanket given. Verbal reassurance given. jp3 22:51 EKG done, by ED staff, reviewed by Nadia Love MD. jp3 23:27 Joao Paz MD is Hospitalizing Provider. [facility] 05/18 01:15 Patient admitted, IV remains in place. 01:29 Report given to JENNIE Castillo. aj1 Administered Medications: 05/17 23:41 Drug: Dexamethasone 1 mg/kg Route: IVP; Site: right antecubital; [facility] 05/18 01:17 Follow up: Response: No adverse reaction 05/17 23:51 Drug: NS 0.9% 1000 ml Route: IV; Rate: 1 bolus; Site: right antecubital; [facility] 05/18 01:17 Follow up: Response: No adverse reaction; IV Status: Completed infusion 05/17 23:51 Drug: AZITHromycin 500 mg Route: IVPB; Infused Over: 1 hrs; Site: right antecubital; [facility] 05/18 01:17 Follow up: Response: No adverse reaction; IV Status: Completed infusion 05/17 23:51 Drug: Rocephin 1 grams Route: IV; Rate: calculated rate; Site: right antecubital; [facility] 05/18 01:17 Follow up: Response: No adverse reaction; IV Status: Completed infusion Outcome: 05/17 23:27 Decision to Hospitalize by Provider. [facility] 05/18 01:15 Admitted to ER Hold. Please see [facility] for further documentation. Condition: stable Instructed on the need for admit. 19:20 Patient left the ED. em Signatures: Dispatcher [employer] Jennifer Rebollar RN RN aj1 Abiodun Bowling RN RN em Habalo, Winsy Nadia Love MD MD sc2 Patricia Orr [facility] Felipe Lu jp3
--- NOTE | 2020-05-17 23:28 | EDPHYS ---
Physician Documentation [facility] Name: Kate Love Age: 79 yrs Sex: Female : 1940 Arrival Date: 05/17/2020 Time: 21:14 Bed 6 Private MD: ED Physician Nadia Love HPI: 05/17 22:20 This 79 yrs old Female presents to ER via EMS with complaints of cough ma2 weakness. 22:20 Onset: The symptoms/episode began/occurred gradually, 1 week(s) ago. Severity of ma2 symptoms: At their worst the symptoms were mild, in the emergency department the symptoms are unchanged. Associated signs and symptoms: Pertinent negatives: ear ache, nausea, rhinorrhea, sore throat, vomiting. The patient has not experienced similar symptoms in the past. Historical: - Allergies: : No Known Allergies; aj1 - PMHx: :30 Asthma; Diabetes - IDDM; Hyperlipidemia; Hypertension; Myocardial infarction; cardiac aj1 stent x2; - Immunization history:: Adult Immunizations up to date. - Social history:: Smoking status: Patient denies any tobacco usage or history of. Patient/guardian denies using alcohol, street drugs, The patient lives with family. - Family history:: not pertinent. ROS: 22:20 Constitutional: Negative for fever, chills, and weight loss. ma2 Exam: 22:20 Constitutional: This is a well developed, well nourished patient who is awake, alert, ma2 and in no acute distress. Head/Face: Normocephalic, atraumatic. Eyes: Pupils equal round and reactive to light, extra-ocular motions intact. Lids and lashes normal. Conjunctiva and sclera are non-icteric and not injected. Cornea within normal limits. Periorbital areas with no swelling, redness, or edema. ENT: Nares patent. No nasal discharge, no septal abnormalities noted. Tympanic membranes are normal and external auditory canals are clear. Oropharynx with no redness, swelling, or masses, exudates, or evidence of obstruction, uvula midline. Mucous membranes moist. Neck: Trachea midline, no thyromegaly or masses palpated, and no cervical lymphadenopathy. Supple, full range of motion without nuchal rigidity, or vertebral point tenderness. No Meningismus. Chest/axilla: Normal chest wall appearance and motion. Nontender with no deformity. No lesions are appreciated. Cardiovascular: Regular rate and rhythm with a normal S1 and S2. No gallops, murmurs, or rubs. Normal PMI, no JVD. No pulse deficits. Respiratory: Lungs have equal breath sounds bilaterally, clear to auscultation and percussion. No rales, rhonchi or wheezes noted. No increased work of breathing, no retractions or nasal flaring. Abdomen/GI: Soft, non-tender, with normal bowel sounds. No distension or tympany. No guarding or rebound. No evidence of tenderness throughout. Skin: Warm, dry with normal turgor. Normal color with no rashes, no lesions, and no evidence of cellulitis. MS/ Extremity: Pulses equal, no cyanosis. Neurovascular intact. Full, normal range of motion. Neuro: Awake and alert, GCS 15, oriented to person, place, time, and situation. Cranial nerves II-XII grossly intact. Motor strength 5/5 in all extremities. Sensory grossly intact. Cerebellar exam normal. Normal gait. Vital Signs: 21:25 BP 153 / 96; Pulse 75; Resp 20; Temp 99.5; Pulse Ox 97% on R/A; aj1 22:26 BP 155 / 66; Pulse 75; Resp 20; Pulse Ox 94% on R/A; aj1 22:35 Weight 89.81 kg (R); aj1 23:30 BP 167 / 79; Pulse 72; Resp 20; Pulse Ox 93% on R/A; aj1 05/18 00:30 BP 170 / 71; Pulse 72; Resp 20; Pulse Ox 94% on R/A; aj1 01:15 BP 163 / 65; Pulse 74; Resp 20; Pulse Ox 95% on R/A; aj1 MDM: 05/17 21:15 Patient medically screened. ma2 22:20 Differential Diagnosis: Obstructed Airway Bronchitis Influenza Upper Respiratory ma2 Infection Sinusitis Pharyngitis. Data reviewed: vital signs, nurses notes. Counseling: I had a detailed discussion with the patient and/or guardian regarding: the historical points, exam findings, and any diagnostic results supporting the discharge/admit diagnosis, the presence of at least one elevated blood pressure reading (>120/80) during this emergency department visit, the need for outpatient follow up. Response to treatment: the patient's symptoms have markedly improved after treatment. 23:25 ED course: dr. frausto send the patient to er for possible pneumonia, will admit to the [address] as she has SIRS and weakness and occasional delirium . 05/17 21:56 Order name: CBC with Diff; Complete Time: 22:37 [facility] 05/17 21:56 Order name: CMP; Complete Time: 23:25 [facility] 05/17 22:18 Order name: Blood Culture Adult (2) [facility] 05/17 22:22 Order name: Troponin (Emerg Dept Use Only); Complete Time: 23:25 EDMS 05/17 22:22 Order name: NT PRO-BNP; Complete Time: 23:25 EDMS 05/17 23:32 Order name: Basic Metabolic Panel [facility] 05/17 23:33 Order name: Troponin I; Complete Time: 06:34 EDMS 05/18 00:01 Order name: SARS-COV-2 RT PCR; Complete Time: 00:19 EDMS 05/18 04:42 Order name: CBC with Automated Diff; Complete Time: 06:34 EDMS 05/18 04:48 Order name: Basic Metabolic Panel; Complete Time: 06:34 EDMS 05/18 04:48 Order name: NT PRO-BNP; Complete Time: 06:34 EDMS 05/17 21:18 Order name: CXR XRAY [facility] 05/17 21:18 Order name: EKG; Complete Time: 21:19 [facility] 05/17 21:18 Order name: Cardiac monitoring; Complete Time: 22:16 [facility] 05/17 21:18 Order name: Document PUI#; Complete Time: 21:24 [facility] 05/17 21:18 Order name: Droplet/Contact Precautions; Complete Time: 21:25 [facility] 05/17 21:18 Order name: EKG - Nurse/Tech; Complete Time: 23:09 [facility] 05/17 21:18 Order name: IV Start; Complete Time: 22:16 [facility] 05/17 21:18 Order name: Labs collected and sent; Complete Time: 22:16 [facility] 05/17 21:18 Order name: O2 Per Protocol; Complete Time: 21:25 [facility] 05/17 21:18 Order name: O2 Sat Monitoring; Complete Time: 21:25 [facility] 05/18 04:50 Order name: Troponin I; Complete Time: 06:34 EDMS 05/18 05:21 Order name: CBC Smear Scan; Complete Time: 06:34 EDMO 05/18 08:16 Order name: Glucose, Ancillary Testing EDMO 05/18 08:32 Order name: C-Reactive Protein EDMO 05/18 08:53 Order name: Procalcitonin EDMO 05/18 11:52 Order name: Glucose, Ancillary Testing EDMO 05/18 16:04 Order name: Glucose, Ancillary Testing EDMO Administered Medications: 23:41 Drug: Dexamethasone 1 mg/kg Route: IVP; Site: right antecubital; [facility] 05/18 01:17 Follow up: Response: No adverse reaction 05/17 23:51 Drug: NS 0.9% 1000 ml Route: IV; Rate: 1 bolus; Site: right antecubital; [facility] 05/18 01:17 Follow up: Response: No adverse reaction; IV Status: Completed infusion 05/17 23:51 Drug: AZITHromycin 500 mg Route: IVPB; Infused Over: 1 hrs; Site: right antecubital; [facility] 05/18 01:17 Follow up: Response: No adverse reaction; IV Status: Completed infusion 05/17 23:51 Drug: Rocephin 1 grams Route: IV; Rate: calculated rate; Site: right antecubital; [facility] 05/18 01:17 Follow up: Response: No adverse reaction; IV Status: Completed infusion Disposition: 05/17/20 23:27 Hospitalization ordered by Joao Frausto for Inpatient Admission. Preliminary diagnosis is Pneumonia due to other specified infectious organisms. - Bed requested for [facility] ER HOLD. - Status is Inpatient Admission. em - Condition is Stable. - Problem is new. - Symptoms are unchanged. Signatures: Dispatcher [employer] EDMO Jennifer Thomas RN RN aj1 Abiodun Bowling RN RN em Garcia, Cindy, RN RN cg Alzahri, Mohammad, MD MD ma2 Habalo, Winsy Corrections: (The following items were deleted from the chart) 05/17 21:46 21:19 UA MICROSCOPIC+U.LAB.BRZ ordered. EDMS EDMS 21:47 21:19 BASIC METABOLIC PANEL+C.LAB.BRZ ordered. EDMS EDMS 21:47 21:19 C-REACTIVE PROTEIN+C.LAB.BRZ ordered. EDMS EDMS 21:47 21:19 CBC+H.LAB.BRZ ordered. EDMS EDMS 21:47 21:19 FERRITIN+C.LAB.BRZ ordered. EDMS EDMS 21:47 21:19 LACTATE+C.LAB.BRZ ordered. EDMS EDMS 21:47 21:19 HEPATIC FUNCTION+C.LAB.BRZ ordered. EDMS EDMS 21:47 21:19 LIPASE+C.LAB.BRZ ordered. EDMS EDMS 21:47 21:19 Procalcitonin+C.LAB.BRZ ordered. EDMS EDMS 21:47 21:19 PROTIME (+INR)+COAG.LAB.BRZ ordered. EDMS EDMS 21:47 21:19 PTT, ACTIVATED+COAG.LAB.BRZ ordered. EDMS EDMS 21:47 21:19 TROPONIN (EMERG DEPT USE ONLY)+C.LAB.BRZ ordered. EDMS EDMS 21:48 21:19 BLOOD CULTURE*+BA.LAB.BRZ ordered. EDMS EDMS 21:48 21:19 Influenza Screen (A \T\ B)+BA.LAB.BRZ ordered. EDMS EDMS 21:49 21:19 CORONAVIRUS+MR.LAB.BRZ ordered. EDMS EDMS 21:49 21:19 Group A Streptococcus Rapid Sc+BA.LAB.BRZ ordered. EDMO EDMS 22:16 21:18 Rachel ordered. [facility] aj1 22:16 21:18 Notify [facility] Dept [phone]/ ordered. [facility] aj1 22:16 21:18 Urine Dipstick-Ancillary ordered. wy2 aj1 22:22 22:18 TROPONIN I+C.LAB.BRZ ordered. EDMS EDMS 22:22 22:18 PROBNP+C.LAB.BRZ ordered. EDMS EDMS 23:01 21:57 CORONAVIRUS+MR.LAB.BRZ ordered. EDMO EDMS 05/18 00:25 05/17 23:27 Hospitalization Ordered by Joao Frausto MD for Inpatient Admission. cg Preliminary diagnosis is Pneumonia due to other specified infectious organisms. Bed requested for Telemetry/MedSurg (Inpatient). Status is Inpatient Admission. Condition is Stable. Problem is new. Symptoms are unchanged. [facility] 05/18 19:20 00:25 05/17/2020 23:27 Hospitalization Ordered by Joao Frausto MD for Inpatient em Admission. Preliminary diagnosis is Pneumonia due to other specified infectious organisms. Bed requested for [facility] ER HOLD. Status is Inpatient Admission. Condition is Stable. Problem is new. Symptoms are unchanged. cg
[2020-05-17] MEDS ORDERED: ONDANSETRON 4 MG/2 ML VIAL IV PRN (23:29)
[2020-05-17] MEDS ORDERED: ALBUTEROL 2.5 MG/3 ML NEB SOL NEB PRN (23:29)
[2020-05-18 01:30] VITALS: BMI 32.9
[2020-05-18 04:22] VITALS: BP 165/72
[2020-05-18 04:39] LABS: Absolute Lymphocytes (CBC) 0.4 K/uL (0.7-4.9); Basophils % 0.3 % (0-1.3); Hematocrit 43.4 % (36.0-45.0); Lymphocytes % 19.5 % (15.3-44.8); MPV 10.4 fL (7.6-11.3)
[2020-05-18 04:47] LABS: Potassium 4.7 mmol/L (3.5-5.1)
[2020-05-18] MEDS ORDERED: GLUCAGON 1 MG/VIAL IM PRN ×2 (05:15→12:16)
[2020-05-18] MEDS ORDERED: D50W 25 GM/50 ML SYRINGE IV PRN ×2 (05:15→12:16)
[2020-05-18 05:21] LABS: Blood Morphology Comment NOT SEEN (NOT SEEN); Platelet Estimate ADEQ; White Blood Cell Scan OK (OK)
--- NOTE | 2020-05-18 07:23 | RAD REPORT ---
EXAM DESCRIPTION: Rosey Single View05/17/2020 10:06 pm CLINICAL HISTORY: Congestion COMPARISON: 2017 FINDINGS: Left base is hazy. The right lung appears clear The heart is normal size IMPRESSION: Left base is hazy. This could be secondary to infiltrate or overlying soft tissue. If cl inically indicated PA and lateral chest series could be obtained
[2020-05-18] MEDS: INSULIN -REGULAR HUMAN 50 UNIT/0.5 ML ML SQ SCH ×3 (07:30→16:18)
[2020-05-18] MEDS ORDERED: INSULIN GLARGINE 100 UNITS/ML SQ SCH ×2 (08:00→12:45)
[2020-05-18] MEDS ORDERED: GABAPENTIN 300 MG CAP ONE ×2 (08:43→14:45)
[2020-05-18] MEDS ORDERED: ASPIRIN 81 MG CHEWABLE TABLET ONE (08:43)
[2020-05-18] MEDS ORDERED: FUROSEMIDE 20 MG TABLET ONE (08:43)
[2020-05-18] MEDS ORDERED: INSULIN GLARGINE 100 UNITS/ML SQ ONE ×2 (08:44→12:25)
[2020-05-18] MEDS ORDERED: lisinopriL 20 MG TAB ONE (08:44)
[2020-05-18] MEDS ORDERED: TICAGRELOR 90 MG TABLET PO ONE (08:44)
[2020-05-18] MEDS ORDERED: METHYLPREDNISOLONE 40 MG INJ ONE (08:44)
[2020-05-18] MEDS ORDERED: INSULIN -REGULAR HUMAN 50 UNIT/0.5 ML ML ONE ×3 (08:45→16:20)
[2020-05-18] MEDS ORDERED: CEFTRIAXONE/SWI 1gm 1 GM/10 ML SYR ONE (08:46)
[2020-05-18] MEDS ORDERED: ENOXAPARIN 40 MG/0.4 ML SQ ONE (08:46)
[2020-05-18 08:57] VITALS: O2SAT 93
[2020-05-18] MEDS ORDERED: TICAGRELOR 90 MG TABLET PO SCH (09:00)
[2020-05-18] MEDS ORDERED: CEFTRIAXONE/SWI 1gm 1 GM/10 ML SYR IV SCH (09:00)
[2020-05-18] MEDS: GABAPENTIN 300 MG CAP PO SCH ×2 (09:00→14:00)
[2020-05-18] MEDS ORDERED: AZITHROMYCIN IV 250 MG in NA CHLORIDE 0.9% 250 ML IVPB SCH (09:00)
[2020-05-18] MEDS ORDERED: CEFTRIAXONE 1 GM/NS 50 ML 1 GM/50 ML BAG IV SCH (09:00)
[2020-05-18] MEDS ORDERED: ENOXAPARIN 40 MG/0.4 ML SQ SCH (09:00)
[2020-05-18] MEDS ORDERED: carvediloL 12.5 MG TAB PO SCH (09:00)
[2020-05-18] MEDS ORDERED: ASPIRIN 81 MG CHEWABLE TABLET PO SCH (09:00)
[2020-05-18] MEDS ORDERED: METHYLPREDNISOLONE 40 MG INJ IV SCH (09:00)
[2020-05-18] MEDS ORDERED: lisinopriL 20 MG TAB PO SCH (09:00)
[2020-05-18] MEDS ORDERED: FUROSEMIDE 20 MG TABLET PO SCH (09:00)
[2020-05-18 12:00] VITALS: TEMP 97.8
--- NOTE | 2020-05-18 12:21 | P.CNS ---
Date of Consult: 05/18/20 Reason for Consult: Abrams virus infection Chief Complaint: Weakness and fever History of Present Illness: Patient is 79 years of age was admitted with fever and weakness positive for abrams virus denies any respiratory complaints had persistent fever Allergies No Known Allergies Allergy (Verified 05/18/20 01:30) Home Medications: Linagliptin [Tradjenta] 5 mg PO DAILY 01/09/16 Cholecalciferol (Vitamin D3) [Vitamin D 1000 Iu Tab*] 2,000 unit PO DAILY 01/21/16 Furosemide [Lasix*] 20 mg PO DAILY tab 03/07/16 carvediloL [Coreg*] 25 mg PO BID 6AM 6PM #60 tab 03/07/16 Aspirin 81 mg PO DAILY 05/18/20 Biotin 10,000 mcg PO DAILY 05/18/20 Cinacalcet HCl 30 mg PO BEDTIME 05/18/20 Dulaglutide [Trulicity] 1.5 mg SQ Q7D 05/18/20 Gabapentin 300 mg PO TID 05/18/20 Insulin Degludec [Tresiba] 30 unit SQ DAILY 05/18/20 Lisinopril [Zestril] 20 mg PO DAILY 05/18/20 Metformin HCl 500 mg PO BEDTIME 05/18/20 Ticagrelor [Brilinta] 90 mg PO BID 05/18/20 Ubidecarenone [Co Q-10] 200 mg PO DAILY 05/18/20 - Past Medical/Surgical History Diabetic: Yes -: hypertension, -: diabetes-NIDDM, -: CAD, carotid artery stenosis -: hyperlipidemia -: osteoarthritis -: peripheral neuropathy -: GERD -: Diverticulosis -: lumbar spondylosis/ radiculopathy -: lumbar stenosis -: Tonsillectomy -: Right knee replacement(2013) -: anterior cervical discectomy -: L2-L5 Decompressive laminectomies & bilateral foraminotomies 02/08/16 -: left knee replacement (2014) -: abd laparotomy for colon tear -: rectal abscess I&D 2009 - Family History Mother Medical History: Heart disease, Hypertension Notes: already - Social History Smoking Status: Never smoker Alcohol use: Yes CD- Drugs: No Caffeine use: Yes Place of Residence: Home Review of Systems 10-point ROS is otherwise unremarkable General: Fever, Weakness, Malaise Physical Examination Temp Pulse Resp BP Pulse Ox 97.8 F 68 18 165/72 H 94 05/18/20 11:57 05/18/20 11:57 05/18/20 11:57 05/18/20 09:00 05/18/20 11:57 General: Alert, In no apparent distress, Oriented x3 Respiratory: Clear to auscultation bilaterally Cardiovascular: No edema, Regular rate/rhythm Gastrointestinal: Normal bowel sounds, Soft and benign Laboratory Data (last 24 hrs) 05/17/20 22:18: Troponin I Cancelled 05/17/20 21:55: Sodium 136, Potassium 4.5, BUN 25 H, Creatinine 0.96, Glucose 217 H, Total Bilirubin 0.5, AST 29, ALT 21, Alkaline Phosphatase 88 05/17/20 21:55: WBC 3.5 L, Hgb 14.8, Hct 45.1 H, Plt Count 147 L 05/17/20 21:18: PT Cancelled, INR Cancelled, APTT Cancelled 05/17/20 21:18: WBC Cancelled, Hgb Cancelled, Hct Cancelled, Plt Count Cancelled 05/17/20 21:18: Sodium Cancelled, Potassium Cancelled, BUN Cancelled, Creatinine Cancelled, Glucose Cancelled, Total Bilirubin Cancelled, AST Cancelled, ALT Cancelled, Alkaline Phosphatase Cancelled, Lipase Cancelled - Problems (1) Infection due to 2019 novel coronavirus Current Visit: Yes Status: Acute Plan: Patient is 79 years of age admitted with abrams virus infection blood pressure is little elevated she has been feeling weak and febrile oxygenation satisfactory CRP level is 50 she has been sick for about a week consider adding low-dose prednisone 10 mg twice a day for a week I would advise the to buy a pulse oximeter the falls below 90 to call me stable for discharge
[2020-05-18] MEDS ORDERED: CINACALCET HCL 30 MG TAB PO SCH (21:00)
[2020-05-18] MEDS ORDERED: METFORMIN HCL 500 MG TAB PO SCH (21:00)
--- NOTE | 2020-05-19 06:09 | EKG ---
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
--- NOTE | 2020-05-19 07:06 | HP ---
Date of Admission: 05/18/2020 Chief Complaint: Cough, fever, shortness of breath. History Of Present Illness: This is a 79-year-old pleasant female patient who has not felt good since 05/12/2020. The patient started to have problem with cough, low-grade fever, and subsequently started to have significant generalized weakness, very poor appetite, confusion, increased sleepiness with lethargy at home, and feeling very tired. Denies any vomiting or diarrhea. Has some cough and shortness of breath with this and temperature for last 2 days has been around 100 degree Fahrenheit. Prior to that, it was 101.8 degrees Fahrenheit. In a last day or so, she started to cough up some greenish colored mucus. I talked to her and her on the phone yesterday evening and she was advised to come to the emergency room, as I was concerned about COVID-19 related problem. After she came into emergency room, further workup was done and her COVID-19 test was positive and she was admitted to the hospital. Her oxygen saturation has been around 94-95% since she came into the emergency room without using any oxygen. When I saw her, she was still in the emergency room, as there were no beds available upstairs. She was not in any distress at all. Medications: List reviewed. Allergies: NO KNOWN ALLERGIES. Review of Systems: Respiratory: As mentioned above. Constitutional: As mentioned above. All other systems reviewed and negative. Past Medical History: Significant for hypertension, diabetes mellitus, hyperparathyroidism, hyperlipidemia, coronary artery disease, carotid artery stenosis, gastroesophageal reflux disease, diverticulosis, osteoarthritis at multiple sites, and vitamin D deficiency. Past Surgical History: Significant for coronary artery angioplasty with stent placement due to STEMI on 12/14/2019, tonsillectomy, shoulder surgery, and knee surgery. Family History: Father had COPD. Mother had diabetes and heart disease. Social History: Negative for smoking. Use of alcohol 2 drinks daily. Physical Examination: Vital Signs: Temperature 98.3, pulse 66, respiratory rate 16, blood pressure 165/72, oxygen saturation 93% on room air. Height 5 feet 5 inches, weight 198 pounds. General: Awake, alert, oriented, not in distress. HEENT: Head atraumatic, normocephalic. Conjunctivae nonerythematous. Sclerae white. Mouth, no thrush or edema noted. Ears/Nose, no mass, lesion, discharge noted. Neck: Supple. No JVD, lymph nodes, bruit, thyromegaly noted. Lungs: Bilateral good equal air entry. Clear to auscultation. No rhonchi. No rales. Heart: Normal heart sounds, no murmur or gallop. Abdomen: Soft, bowel sounds normal. No guarding, rigidity, tenderness, mass, hepatosplenomegaly, distention, or bruit noted. Extremities: No leg edema. No calf tenderness. Skin: No rash, ulcer, cellulitis. Lymphatics: No lymph node enlargement in neck, supraclavicular, infraclavicular region. Neuro: No focal neurological deficit. Chest: Unremarkable. External Genitalia: Deferred. Rectal: Deferred. Laboratory Data: White count 2.3, hemoglobin 14.5, platelets 143 from this morning. Yesterday, white count 3.5, hemoglobin 14.8 platelets 147. Yesterday, sodium 136, potassium 4.5, chloride 102, bicarb 27, BUN 25, creatinine 0.96, glucose 217. This morning, sodium 138, potassium 4.7, chloride 106, bicarb 25, BUN 22, creatinine 0.90, glucose 231. COVID-19 test positive. BNP yesterday 818, today is 726. Liver function tests normal. Troponin less than 0.02. Chest x-ray results reviewed. Hospital Course: After I saw patient in emergency room, I did order a C- reactive protein and procalcitonin results reviewed. Dr. Schumacher from Pulmonary was consulted and details were discussed with him after he evaluated the patient. The patient has remained medically stable on room air maintaining adequate oxygenation saturation anywhere from 94-96% in emergency room, and we monitored her throughout the day, did not have any acute respiratory distress, and medically, she was stable. She was given IV antibiotic and IV steroids. Overall condition was stable for discharge with outpatient treatment and followup. The patient was discharged with instruction to continue all prior home medications, and I did talk to her and her after she was discharged to go home and prescription for Z-JONATHAN use as directed as well as prednisone 10 mg. Patient to take 3 tablets daily for 3 days, then 2 tablets daily for 3 days, then 1 tablet daily for 3 days, was sent to her pharmacy. She checks her blood sugar every morning and she was instructed to continue to do so and she takes Tresiba 28 units subcutaneous injection every morning and she was instructed to continue that and take extra dose of Tresiba depending on her blood sugar while taking steroid medication and patient was instructed if her blood sugar is 200 or more, then take 4 extra units; if blood sugar is 250 or more, take 6 extra units; and if blood sugar is 300 or more, then take 8 extra units; and if blood sugar is 350 or more; then take 10 extra units of Tresiba in the morning. The patient and her verbalized understanding. Final Diagnoses: 1. COVID-19 infection. 2. COVID-19 pneumonia. 3. Diabetes mellitus, uncontrolled, due to steroid. 4. Coronary artery disease. 5. Hypertension. 6. Hyperlipidemia. 7. Osteoarthritis, multiple sites. 8. Hyperparathyroidism. 9. Gastroesophageal reflux disease. 10. Diverticulosis. MORIAH/BRIAN Voice ID: [id number]
[2020-05-19] MEDS ORDERED: INSULIN GLARGINE 100 UNITS/ML SQ ONE (12:16)
== END 2020-05-18 19:18 | disposition home or self-care (01) ==
LOC: ER 21:10 → ERHOLD 23:34 → INTOOBSV 23:34
PROVIDERS: ADMIT Internal Medicine; ATTEND Internal Medicine
DX: U07.1 COVID-19 (principal); J12.89 Other viral pneumonia; E11.65 Type 2 diabetes mellitus with hyperglycemia; T38.0X5A Adverse effect of glucocorticoids and synthetic analogues, initial encounter; I10 Essential (primary) hypertension; E78.5 Hyperlipidemia, unspecified; I25.10 Atherosclerotic heart disease of native coronary artery without angina pectoris; K21.9 Gastro-esophageal reflux disease without esophagitis; Z95.5 Presence of coronary angioplasty implant and graft; M15.9 Polyosteoarthritis, unspecified; E55.9 Vitamin D deficiency, unspecified; I25.2 Old myocardial infarction; E21.3 Hyperparathyroidism, unspecified; K57.90 Diverticulosis of intestine, part unspecified, without perforation or abscess without bleeding; E11.42 Type 2 diabetes mellitus with diabetic polyneuropathy; M47.26 Other spondylosis with radiculopathy, lumbar region; M48.061 Spinal stenosis, lumbar region without neurogenic claudication; Z96.653 Presence of artificial knee joint, bilateral; I65.29 Occlusion and stenosis of unspecified carotid artery
CPT/HCPCS: 93005; 87040 ×2; 85025 ×2; 80048; 36415; 82947 ×3; 84484 ×3; 80053; 84145; 83880 ×2; 86140; 71045; 94760 ×2; U0003; J0456 ×2; J1650; J1100; J0696 ×2; J7050 ×2; J7030; J2920; 96365; 96368; 96375; 99285; G0378; J1815

== ENCOUNTER 2022-07-13 16:03 | Inpatient (IN) | payer OTHER ==
--- OUTSIDE RECORDS SUMMARY | 2022-07-13 16:18 | XMS REPORT | Continuity of Care Document ---
:1940 Author Organization [facility] t Address [address] [place] [address] Care Team Providers Name Role Phone Joao Paz Primary Care Physician MICHAEL ASHBY Attending Clinician Unavailable Lora Quinones MD Attending Clinician Ej Attending Clinician Unavailable Wilian Attending Clinician Unavailable Roger Holloway Attending Clinician [phone] Phillip Castaneda Attending Clinician Unavailable Joby Wheeler MD Attending Clinician Whitley Bryson RN Attending Clinician Unavailable MICHAEL ASHBY M.D. Attending Clinician Unavailable Riley Whyte Attending Clinician Jean Paul Angela Attending Clinician Ranjit Drew Attending Clinician Keron Thomas Attending Clinician Ej Admitting Clinician Unavailable Wilian Admitting Clinician Unavailable KNOW, DOES_NOT Admitting Clinician Unavailable Riley Whyte Admitting Clinician Jean Paul Angela Admitting Clinician Ranjit Drew Admitting Clinician Payers Payer Name Policy Type Policy Number Effective Date Expiration Date Milagros conte [facility] [id number] 2021 (MEDICARE 00:00:00 REPLACEMENT/ADVANTA GE - PPO) [place]IC[place] B-[place]: [id number] [employer] (MEDICARE [id number] REPLACEMENT/ADVANTA GE - PPO) Problems Condition Condition Condition Status Onset Resolution Last Treating Co mments Source Name Details Category Date Date Treatment Clinician Date Hip pain Hip Pain Problem Active Azale a 9-22 Orthope 00:00: dic 00 Sports Medicin e Pain of Pain of Problem Active Arlin left hip Left Hip 03-09 Orthop e joint Joint 00:00: dic 00 Sports Medicin e Senile Senile Problem Active [place] purpura Purpura 7-08 Family 00:00: Practic 00 e Low back Low Back Problem Active [place] ge pain Pain 7-08 Family 00:00: Practic 00 e Morbid Morbid Problem Active [place] obesity Obesity 4-19 Family 00:00: Practic 00 e Proteinuri Proteinuri Problem Active V ill[place] a a 2-17 Family 00:00: Practic 00 e Body mass Body Mass Problem Active Perry benny index 30+ Index 30+ 4-29 Fami ly - obesity - Obesity 00:00: Prac tic 00 e Coronary Coronary Problem Active [place] ge arterioscl Arterioscl 4-29 Fa myla erosis erosis 00:00: Practic 00 e Type 2 Type 2 Problem Active [place] diabetes Diabetes 2-24 Family mellitus Mellitus 00:00: Practi c 00 e Neuropathy Neuropathy Problem Active [place] due to Due to 2-24 Family diabetes Diabetes 00:00: Practi c mellitus Mellitus 00 e Hyperlipid Hyperlipid Problem Active [place] emia due emia Due 2-24 Family to type 2 to Type 2 00:00: Prac tic diabetes Diabetes 00 e mellitus Mellitus Coronary Coronary Problem Active [place] ge artery Artery 2-24 Family disease Disease 00:00: Practic due to Due to 00 e type 2 Type 2 diabetes Diabetes mellitus Mellitus Neuropathy Neuropathy Problem Active V illage 6-08 Family 00:00: Practic 00 e Hyperlipid Hyperlipid Problem Active 2018-06 [place] ill[place] susanna mullins 2-05 Family 00:00: Practic 00 e Hypercalce Hypercalce Disease Active M chanelle hays 12-23 [facility] 00:00: Hospita 00 l Primary Primary Disease Active Methodi hyperparat hyperparat 12-23 st hyroidism hyroidism 00:00: Hosp gladys 00 l Vitamin D Vitamin D Problem Active 2017-06 [place] benny deficiency Deficiency 0-10 Fa myla 00:00: Practic 00 e Obesity Obesity Problem Active 2017-06 [place] 0-10 Family 00:00: Practic 00 e Essential Essential Problem Active 2017-06 [place] benny hypertensi Hypertensi 0-10 Fa myla on on 00:00: Practic 00 e Constipati Constipati Problem Active 2017-06 V illage on on 0-10 Family 00:00: Practic 00 e Hypertensi Hypertensi Problem Active 2017-06 V illage ve ve 0-10 Family disorder Disorder 00:00: Practi c 00 e Keratoma Keratoma Problem Active 2017-06 [place] ge 0-10 Family 00:00: Practic 00 e Fracture Fracture Problem Active 2016-06 Azale a of upper of Upper 2-26 Orthop e end of End of 00:00: dic humerus Humerus 00 Sports Medicin e Closed Closed Problem Active 2016-06 Arlin fracture Fracture 2-26 Orthop e of of 00:00: dic surgical Surgical 00 Sports neck of Neck of Medicin left Left e humerus Humerus Strain of Strain of Problem Active Aza maritza muscle of Muscle of 4-13 Orth ope upper limb Upper Limb 00:00: di c 00 Sports Medicin e 15043, 62962, Diagnosis Active 2016-08-23 Me gabriela 94118 X3, 86406 X3, 8-16 21:24:00 l CONNECTIVE CONNECTIVE 00:00: He rmann TISSUE AND TISSUE AND 00 D D Active 02/01/2016 [facility] HERNIATED Diagnosis Active 2016-02-01 Memoria LUMBAR HERNIATED 01-10 22:00:00 l DISK S/P LUMBAR 00:00: [place] FALL WITH DISK S/P 00 LT H FALL WITH LT H Active 01/11/2016 [facility] HERNIATED Diagnosis Active 2016-01-11 Memoria LUMBAR HERNIATED - 05:29:00 l DISK S/P LUMBAR 00:00: Luke FALL WITH DISK S/P 00 LEFT FALL WITH LEFT Active 01/10/2016 [facility] Knee pain Knee Pain Problem Active Aza maritza 6-09 Orthope 00:00: dic 00 Sports Medicin e 723.4 - 723.4 - Diagnosis Active 2013-12-02 Memoria BRACHIAL BRACHIAL 4-02 07:22:00 l NEURIT NEURIT 00:01: [place] Active 00 09/17/2013 PHY[facility]IS Butler 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 [facility] CERVICAL CERVICAL Diagnosis Active 2012-10-07 Memoria RADICULITI RADICULITI - 13:29:00 l S, S, 00:00: Luke CERVICAL CERVICAL 00 DISC DISP DISC DISP Active 09/06/2012 [facility] Osteoarthr Osteoarthr Problem Active 2010-06 A zatatianaa itis of itis of 0-25 Orthope knee Knee 00:00: dic 00 Sports Medicin e Diabetes Diabetes Problem Resolve 2013-03-21 Memoria mellitus mellitus d 20:07:44 l Resolved [place] Problem 03/21/2013 [facility] PHYLLIS [place] GERD - GERD - Problem Resolve 2013-03-21 Mem oria Gastro-eso Gastro-eso d 20:07:44 l phageal phageal Luke reflux reflux disease disease Resolved Problem 03/21/2013 [facility] PHYLLIS [place] HLD - HLD - Problem Resolve 2013-03-21 Mem oria Hyperlipid Hyperlipid d 20:07:44 l emia emia Luke Resolved Problem 03/21/2013 [facility], PHYLLIS Butler HTN - HTN - Problem Resolve 2013-03-21 Boy tadeo Hypertensi Hypertensi d 20:07:44 l on on [place] Resolved Problem 03/21/2013 [facility], PHYLLIS Butler Neuropathy Neuropath Problem Resolve 2013-03-21 Memoria y Resolved d 20:07:44 l Problem [place] 03/21/2013 [facility], PHYLLIS Butler Diabetes Diabetes Problem Active 2016-02-17 Memoria mellitus mellitus 00:32:37 l (disorder) (disorder) He rmann Active Problem 02/17/2016 PHYLLIS Butler,[facility] Displaceme Displacem Problem Active 2016-02-17 Memoria nt of ent of 00:32:37 l lumbar lumbar Luke interverte interverte bral disc bral disc without without myelopathy myelopathy (disorder) (disorder) Active Problem 02/17/2016 [facility] Gastroesop Gastroeso Problem Active 2016-02-17 Memoria hageal phageal 00:32:37 l reflux reflux Luke disease disease (disorder) (disorder) Active Problem 02/17/2016 PHYLLIS Butler,[facility] Lumbar Lumbar Problem Active 2016-02-17 Boy tadeo radiculopa radiculopa 00:32:37 l thy thy [place] (disorder) (disorder) Active Problem 02/17/2016 [facility] Lumbar Lumbar Problem Active 2016-02-17 Mem oria spondylosi spondylosi 00:32:37 l s s [place] (disorder) (disorder) Active Problem 02/17/2016 [facility] 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 00:32:37 l of lumbar of lumbar Herm robert region region (disorder) (disorder) Active Problem 02/17/2016 [facility] 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 00:32:37 l (disorder) (disorder) He rmann Active Problem 02/17/2016 [facility] Interverte Intervert Problem Active 2016-02-17 Memoria bral disc ebral disc 00:32:37 l disorder disorder Richard n (disorder) (disorder) Active Problem 02/17/2016 [facility] Interverte Intervert Problem Active 2016-02-17 Bob bral disc ebral disc 00:32:37 l stenosis stenosis Richard thompson of neural of neural canal canal (disorder) (disorder) Active Problem 02/17/2016 [facility] BRACHIAL BRACHIAL Diagnosis Active 2012-10-07 Memoria NEURITIS NEURITIS 13:29:00 l NOS NOS Active Richard thompson [facility] CERV DISC CERV DISC Diagnosis Active 2012-10-07 Memoria DIS W DIS W 13:29:00 l MYELOPAT MYELOPAT Richard thompson Active [facility] ILLNESS, ILLNESS, Diagnosis Active 2016-08-23 Memoria UNSPECIFIE UNSPECIFIE 21:24:00 l D D Active [place] [facility] No known No known Disease [place] active active Health problems problems Allergies, Adverse Reactions, Alerts Allergy Allergy Status Severity Reaction(s) Onset Inactive Treating Comm ents Source Name Type Date Date Clinician dulaglut DA Active [facility] diane 12-16 [place] 00:00: Orthope 00 dic Hospita l semaglut DA Active [facility] diane 12-16 [place] 00:00: Orthope 00 dic Hospita l No Known DA Active [facility] Allergie 1-15 [place] [facility] 00:[facility]: Orthope 00 dic Hospita l STATINS- Allergy Active Myalgias [place] [facility] to (muscle Family REDUCTAS substanc pain) Practi c E e e INHIBITO RS Social History Social Habit Start Date Stop Date Quantity Comments Source Tobacco use and 2021-11-28 2021-11-28 Smokeless tobacco [facility] exposure 00:00:00 00:00:00 non-user Cigarette 2021-11-28 2021-11-28 [facility] pack-years 00:00:00 00:00:00 Alcohol intake 2019-06-03 2019-06-03 Current drinker [facility] 00:00:00 00:00:00 of alcohol Hospital (finding) Social History 2016-01-11 2016-01-11 [facility] jennyfer 22:35:39 22:35:39 Sex Assigned At [birth year] [facility] 00:00:00 00:00:00 Smoking Status Start Date Stop Date Source Never smoked tobacco [facility] Medications Ordered Filled Start Stop Current Ordering Indication Dosage Frequency Signature Comments Components Source Medication Medication Date Date Medication? Clinician (SIG) Name Name cinacalcet Yes [id number] TAKE 1 M ethodi (SENSIPAR) 1-[address] 30 MG 00:00: MOUTH Hospita tablet 00 TWICE A l DAY cinacalcet 2021-06- No [id number] TAKE 1 [facility] (SENSIPAR) 2- TABLET BY st 30 MG 00:00: 18:04 MOUTH Hospita tablet 00 :09 TWICE A l DAY cinacalcet 2021-06- No [id number] TAKE 1 [facility] (SENSIPAR) 07-[address] 30 MG 00:00: 00:00 MOUTH Hospita tablet 00 :00 TWICE A l DAY cinacalcet 2021-06- No [id number] TAKE 1 [facility] (SENSIPAR) 024 05-[address] 30 MG 00:00: 00:00 MOUTH Hospita tablet 00 :00 TWICE A l DAY irbesartan Yes irbesartan U T (Avapro) 6-13 300 mg Health 300 MG 09:37: tablet RX tablet 16 by other linaGLIPtin Yes Tradjenta U T (Tradjenta) 613 5 mg Health 5 MG tablet 09:37: tablet RX 16 by other linaGLIPtin Yes Jentadueto [place] -metFORMIN 6-13 XR 5 Health HCl ER 09:37: mg-1,000 (Jentadueto 16 mg tablet, XR) 5-1000 extended MG tablet release sustained-r TAKE 1 elease 24 TABLET BY hour MOUTH EVERY DAY IN THE MORNING lisinopril Yes 20mg 20 mg. UT 20 MG 6-13 Health tablet 09:37: 16 NIFEdipine Yes nifedipine U T XL 6-13 ER 30 mg Health (Procardia 09:37: tablet,ext XL) 30 MG 16 ended 24 hr release 24 tablet hr TAKE 1 TABLET BY MOUTH EVERY DAY Pitavastati Yes Livalo 2 UT n Calcium 6-13 mg tablet Healt h (Livalo) 2 09:37: Take 1 MG tablet 16 tablet every day by oral route as directed for 90 days. pravastatin Yes 20mg 20 mg. UT (Pravachol) 6-13 Health 20 MG 09:37: tablet 16 semaglutide Yes Ozempic UT (Ozempic, 11-28 0.25 mg or Heal th 0.25 or 0.5 09:37: 0.5 mg (2 MG/DOSE,) 2 16 mg/1.5 mL) MG/1.5ML subcutaneo solution us pen pen-injecto injector r INJECT 0.5 MG SUBCUTANEO USLY EVERY WEEK FOR 30 DAYS. valsartan Yes valsartan [facility] (Diovan) 11-28 320 mg Health 320 MG 09:37: tablet tablet 16 TAKE 1 TABLET BY MOUTH EVERY DAY carvedilol Yes carvedilol U T (Coreg) 25 11-28 25 mg Health MG tablet 09:37: tablet 15 TAKE 1 TABLET BY MOUTH TWICE A DAY cloNIDine Yes clonidine UT (Catapres) 11-28 HCl 0.1 mg Hea lth 0.1 MG 09:37: tablet 1/2 tablet 15 TAB THREE TIMES DAILY cycloSPORIN Yes Restasis UT E 11-28 0.05 % eye Health (Restasis) 09:37: drops in a 0.05 % 15 dropperett ophthalmic e INSTILL emulsion 1 DROP INTO BOTH EYES TWICE A DAY dulaglutide Yes UT (Trulicity) 11-28 Health 0.75 09:37: MG/0.5ML 15 solution pen-injecto r Dulaglutide Yes Trulicity U T (Trulicity) 11-28 3 mg/0.5 Heal th 3 MG/0.5ML 09:37: mL solution 15 subcutaneo pen-injecto us pen r injector INJECT 3 MG (ONE PEN) EVERY WEEK BY SUBCUTANEO US ROUTE DIRECTED FOR 90 DAYS. empaglifloz Yes QD 1 (one) UT in 11-28 time each Health (Jardiance) 09:37: day. 25 MG 15 furosemide Yes Take 1 UT (Lasix) 20 11-28 tablet Health MG tablet 09:37: every day 15 by oral route. gabapentin Yes Take 1 UT (Neurontin) 11-28 capsule 3 Hea lth 300 MG 09:37: times a capsule 15 day by oral route. insulin Yes UT degludec 11-28 Health (Tresiba 09:37: FlexTouch) 15 100 UNIT/ML injection HYDROcodone 2021- No [id number] 1{tbl} Q6H Take 1 UT -acetaminop 11-28 06-19 tablet by Manolo cruz lawson (Ira) 00:00: 04:59 mouth 5-325 MG 00 :00 every 6 tablet (six) hours if needed for severe pain for up to 5 days. cinacalcet Yes cinacalcet U T (Sensipar) 07-18 30 mg Health 30 MG 00:00: tablet tablet 00 TAKE 1 TABLET BY MOUTH TWICE A DAY cinacalcet 2021- No [id number] TAKE 1 [facility] (SENSIPAR) 07-[address] 30 MG 00:00: 00:00 MOUTH Hospita tablet 00 :00 TWICE A l DAY cinacalcet 2021- No [id number] TAKE 1 [facility] (SENSIPAR) 07-[address] 30 MG 00:00: 00:00 MOUTH Hospita tablet 00 :00 TWICE A l DAY cinacalcet 2021- No [id number] 30mg Q.5D Take 1 [facility] (SENSIPAR) 07-13 tablet (30 st 30 MG 00:00: 00:00 mg total) Hospit a tablet 00 :00 by mouth 2 l (two) times a day. dulaglutide Yes Inject Meth jesus (Trulicity) 6-[address] 1.5 mg/0.5 10:45: skin. Hospit a mL pen 28 l injector insulin Yes Inject Methodi degludec 6-[address] (TRESIBA 10:43: skin. Hospita U-100 24 l INSULIN SUBQ) amLODIPine 2018-06 Yes 5mg QD Take 5 mg Me thodi (NORVASC) 5 2-[address] mg tablet 11:20: daily. Hospit a 43 l aspirin 2018-06 Yes 81mg QD Take 81 mg Meth jesus (ECOTRIN) 2-[address] 81 MG 11:20: daily. Hospita enteric 43 l coated tablet irbesartan 2018-06 Yes 300mg QD Take 300 Me thodi (AVAPRO) 2-[address] 300 MG 11:20: mouth Hospita tablet 43 nightly. l clonIDINE 2018-06 Yes .1mg Q.5D Take 0.1 Meth jesus (CATAPRES) 2-[address] 0.1 MG 11:20: mouth 2 Hospita tablet 43 (two) l times a day. As needed spironolact 2018-06 Yes 25mg QD Take 25 mg [facility]i one 2-[address] (ALDACTONE) 11:20: daily. Hosp gladys 25 MG 43 l tablet furosemide 2018-06 Yes 20mg Q.5D Take 20 mg M ethodi (LASIX) 20 2-[address] mg tablet 11:20: (two) Hospita 43 times a l day. As needed polyethylen 2018-06 Yes 17g QD Take 17 g M ethodi e glycol 2-[address] (MIRALAX) 11:20: daily. As Hos radha 17 gram 43 needed l packet carvedilol 2018-06 Yes 25mg Q.5D Take 25 mg M ethodi (COREG) 25 2-[address] MG tablet 11:20: (two) Hospita 43 times a l day with meals. cholecalcif 2018-06 Yes 1000U QD Take 1,000 Methodi loren, 2-[address] vitamin D3, 11:20: mouth Hospi ta (VITAMIN 43 daily. l D3) 1,000 unit capsule pitavastati 2018-06 Yes 2mg QD Take 2 mg M ethodi n calcium 2-[address] (LIVALO) 1 11:20: nightly. Hos radha mg tablet 43 l gabapentin Yes TAKE 1 Metho di (NEURONTIN) 6-[address] 300 mg 00:00: MOUTH Hospita capsule 00 THREE l TIMES A DAY ACCU-CHEK 2019- Yes Q.5D 2 (two) Metho di FIOR PLUS 6-[address] TEST STRP 00:00: day. for Hosp gladys strip test 00 testing l strips ACCU-CHEK Yes USE Method i MULTICLIX 6-[address] LANCET 00:00: TWICE A Hospita lancets 00 DAY, l DIAGNOSIS E11.9 TRADJENTA 5 Yes 5mg QD Take 5 mg M ethodi mg tablet 6-[address] 00:00: daily. Hospita 00 l VITAMIN D2 2018- Yes TAKE ONE Met hodi 50,000 unit 6-[address] capsule 00:00: MOUTH ONE Hospi ta 00 TIME PER l WEEK metFORMIN Yes TAKE 1 Method i XR 5-[address] (GLUCOPHAGE 00:00: MOUTH Hospi ta -XR) 500 mg 00 EVERY DAY l 24 hr IN THE tablet EVENING WITH DINNER SOLIQUA Yes INJECT Methodi 100/33 100 5-[address] unit-33 00:00: SKIN 30 Hospita mcg/mL 00 UNITS l insulin pen EVERY MORNING AND INCREASE TO 60 DIRECTED cyclobenzap cyclobenzap No cyclobenza Arlin rine 10 mg rine 10 mg 1-12 david 10 Orthope tablet 1 po tablet 1 po 00:00: mg tablet dic tab TID for tab TID for 00 1 po tab Sports spasms as spasms as TID for Me dicin needed needed spasms as e needed Ira 10 Ira 10 No Ira 10 A zalea mg-325 mg mg-325 mg 1-12 mg-325 mg Orthope tablet 1 Q tablet 1 Q 00:00: tablet 1 Q dic 4-6 HRS PRN 4-6 HRS PRN 00 4-6 HRS Sports PAIN PAIN PRN PAIN Medicin e cyclobenzap cyclobenzap No cyclobenza Arlin rine 10 mg rine 10 mg 1-12 david 10 Orthope tablet 1 po tablet 1 po 00:00: mg tablet dic tab TID for tab TID for 00 1 po tab Sports spasms as spasms as TID for Me dicin needed needed spasms as e needed Ira 10 Ira 10 No Ira 10 A zalea mg-325 mg mg-325 mg 1-12 mg-325 mg Orthope tablet 1 Q tablet 1 Q 00:00: tablet 1 Q dic 4-6 HRS PRN 4-6 HRS PRN 00 4-6 HRS Sports PAIN PAIN PRN PAIN Medicin e cyclobenzap cyclobenzap No cyclobenza Arlin rine 10 mg rine 10 mg 1-12 david 10 Orthope tablet 1 po tablet 1 po 00:00: mg tablet dic tab TID for tab TID for 00 1 po tab Sports spasms as spasms as TID for Me dicin needed needed spasms as e needed Ira 10 Ira 10 No Ira 10 A zalea mg-325 mg mg-325 mg 1-12 mg-325 mg Orthope tablet 1 Q tablet 1 Q 00:00: tablet 1 Q dic 4-6 HRS PRN 4-6 HRS PRN 00 4-6 HRS Sports PAIN PAIN PRN PAIN Medicin e cyclobenzap cyclobenzap No cyclobenza Arlin rine 10 mg rine 10 mg 1-12 david 10 Orthope tablet 1 po tablet 1 po 00:00: mg tablet dic tab TID for tab TID for 00 1 po tab Sports spasms as spasms as TID for Me dicin needed needed spasms as e needed Ira 10 Ira 10 No Ira 10 A zalea mg-325 mg mg-325 mg 1-12 mg-325 mg Orthope tablet 1 Q tablet 1 Q 00:00: tablet 1 Q dic 4-6 HRS PRN 4-6 HRS PRN 00 4-6 HRS Sports PAIN PAIN PRN PAIN Medicin e Lipitor No Notes: Memoria 8-31 (Same As: l 02:00: Lipitor) Luke Lipitor No Notes: Memoria 8-31 (Same As: l 02:00: Lipitor) [place] Lipitor No Notes: Memoria 8-31 (Same As: l 02:00: Lipitor) Luke 00 Acetaminoph Yes 1 tab, PO, Memoria en 325 MG / 8-29 Q6H, PRN l Hydrocodone 12:49: pain, # 90 Luke Bitartrate 00 tab, 0 10 MG Oral Refill(s), Tablet given to [Ira patient ] morphine 15 Yes 15 mg = 1 [...] tab, PO, l tablet 12:49: TID, PRN [place] 00 as needed for muscle spasm, # 45 tab, 0 Refill(s) Acetaminoph 2015-0 Yes 1 tab, PO, Memoria en 325 MG / 8-29 Q6H, PRN l Hydrocodone 12:49: pain, # 90 [place] Bitartrate 00 tab, 0 10 MG Oral Refill(s), Tablet given to [Ira patient ] morphine 15 Yes 15 mg = 1 [...] tab, PO, l tablet 12:49: TID, PRN [place] 00 as needed for muscle spasm, # 45 tab, 0 Refill(s) Acetaminoph Yes 1 tab, PO, Memoria en 325 MG / 8-29 Q6H, PRN l Hydrocodone 12:49: pain, # 90 Luke Bitartrate 00 tab, 0 10 MG Oral Refill(s), Tablet given to [Ira patient ] morphine 15 Yes 15 mg = 1 M emoria mg oral 8-29 tab, PO, l tablet, 12:49: Q12H, # 60 Herm robert extended 00 tab, 0 release Refill(s), given to patient bisacodyl 5 0 Yes 5 mg = 1 Me moria mg oral 8-29 tab, PO, l enteric 12:49: TID, PRN Richard n coated 00 Constipati tablet on, 0 Refill(s) baclofen 10 Yes 5 mg = 0.5 Memoria mg oral 8-29 tab, PO, l tablet 12:49: TID, PRN [place] 00 as needed for muscle spasm, # 45 tab, 0 Refill(s) MS Contin No Notes: Do Mem oria 8-28 not crush l 02:00: (Same [place] 00 as:[employer]ram[employer] h SR, MS Contin) MS Contin No Notes: Do Mem oria 8-28 not crush l 02:00: (Same Luke 00 as:[employer]ram[employer] h SR, MS Contin) MS Contin No Notes: Do Mem oria 8-28 not crush l 02:00: (Same [place] 00 as:Oramorp h SR, MS Contin) Lipitor No Notes: Memoria 8-27 (Same As: l 02:00: Lipitor) [place] 00 Lipitor No Notes: Memoria 8-27 (Same As: l 02:00: Lipitor) Luke 00 Lipitor No Notes: Memoria 8-27 (Same As: l 02:00: Lipitor) [place] 00 Tylenol No Notes: Do Memor ia 8-26 not exceed l 23:00: 4 gm/day. [place] 00 (Same as: Tylenol) Tylenol No Notes: Do Memor ia 8-26 not exceed l 23:00: 4 gm/day. Luke 00 (Same as: Tylenol) Tylenol No Notes: Do Memor ia 8-26 not exceed l 23:00: 4 gm/day. Luke 00 (Same as: Tylenol) Bisacodyl No Notes: Memori a 8-26 (Same As: l 22:47: Dulcolax, Luke 00 Correctol) (Do Not Crush) "Do Not Crush" Bisacodyl No Notes: Memori a 8-26 (Same As: l 22:47: Dulcolax, Luke 00 Correctol) (Do Not Crush) "Do Not Crush" Bisacodyl No Notes: Memori a 8-26 (Same As: l 22:47: Dulcolax, [place] 00 Correctol) (Do Not Crush) "Do Not Crush" Docusate No Notes: Memoria 8-26 (Same as: l 22:00: Colace) Luke (Do Not Crush) Docusate No Notes: Memoria 8-26 (Same as: l 22:00: Colace) Luke 00 (Do Not Crush) Docusate No Notes: Memoria 8-26 (Same as: l 22:00: Colace) [place] 00 (Do Not Crush) Simethicone No Notes: Boy tadeo 8- (Same as: l 21:04: Mylicon) [place] Bisacodyl No Notes: Memori a 8- (Same As: l 21:04: Dulcolax, [place] 00 Bisco-Lax) Simethicone No Notes: Boy tadeo 8- (Same as: l 21:04: Mylicon) Luke 00 Bisacodyl No Notes: Memori a 8- (Same As: l 21:04: Dulcolax, Luke 00 Bisco-Lax) Simethicone No Notes: Byo tadeo 8- (Same as: l 21:04: Mylicon) Luke 00 Bisacodyl No Notes: Memori a 8- (Same As: l 21:04: Dulcolax, Luke 00 Bisco-Lax) Baclofen No Notes: Memoria 8-26 (Same As: l 14:00: Lioresal) Luke Baclofen No Notes: Memoria 8-26 (Same As: l 14:00: Lioresal) Luke Baclofen No Notes: Memoria 8-26 (Same As: l 14:00: Lioresal) Luke Dilaudid No Notes: Memoria 8-25 (Same as: l 22:54: Dilaudid) Luke Dilaudid No Notes: Memoria 8-25 (Same as: l 22:54: Dilaudid) [place] Dilaudid No Notes: Memoria 8-25 (Same as: l 22:54: Dilaudid) [place] 00 Acetaminoph No Notes: Boy tadeo en 325 MG / 8-25 (Same as: l Hydrocodone 22:52: Ira Anitra nn Bitartrate 00 325/5) Do 5 MG Oral not exceed Tablet 4gm/day of [Ira acetaminop 5/325] hen. Acetaminoph No Notes: Boy tadeo en 325 MG / 02-09 (Same as: l Hydrocodone 22:52: Ira Anitra nn Bitartrate 00 325/5) Do 5 MG Oral not exceed Tablet 4gm/day of [Ira acetaminop 5/325] hen. Acetaminoph No Notes: Boy tadeo en 325 MG / 02-09 (Same as: l Hydrocodone 22:52: Ira Anitra nn Bitartrate 325/5) Do 5 MG Oral not exceed Tablet 4gm/day of [Ira acetaminop 5/325] hen. tradjenta No tradjenta, moria 8-24 5 mg, 1 l 20:00: tab, Drug [place] form: MISC, Route: PO, Daily, 02/09/16 15:00:00 CDT, Duration: 30 day, Stop date: 03/10/16 9:00:00 CDT tradjenta No estevanjentaMe moria 8-24 5 mg, 1 l 20:00: tab, Drug [place] form: MISC, Route: PO, Daily, 02/09/16 15:00:00 CDT, Duration: 30 day, Stop date: 03/10/16 9:00:00 CDT tradjenta No tradjentaMe moria 8-24 5 mg, 1 l 20:00: tab, Drug [place] form: MISC, Route: PO, Daily, 02/09/16 15:00:00 CDT, Duration: 30 day, Stop date: 03/10/16 9:00:00 CDT Rosuvastati Yes 2.5 mg, Mem oria n calcium 5 8-24 PO, l MG Oral 16:18: Bedtime, # Herm robert Tablet 00 30 tab, 0 [Crestor] Refill(s) Rosuvastati Yes 2.5 mg, Mem oria n calcium 5 8-24 PO, l MG Oral 16:18: Bedtime, # Herm robert Tablet 00 30 tab, 0 [Crestor] Refill(s) Rosuvastati Yes 2.5 mg, Mem oria n calcium 5 02-08 PO, l MG Oral 16:18: Bedtime, # Herm robert Tablet 00 30 tab, 0 [Crestor] Refill(s) Sodium No 25 mL, Memoria Chloride 02-08 Route: IV, l 0.9% IV 15:15: Start date: 02/09/16 10:15:00 CDT, Duration: 30 day, Stop date: 03/10/16 10:14:00 CDT, PRN Line Flush BD Normal No Notes: Memori a Saline 24 (Same as: l Flush 15:15: BD Posiflush) Sodium No 25 mL, Memoria Chloride 02-08 Route: IV, l 0.9% IV 15:15: Start date: 02/09/16 10:15:00 CDT, Duration: 30 day, Stop date: 03/10/16 10:14:00 CDT, PRN Line Flush BD Normal No Notes: Memori a Saline 02-08 (Same as: l Flush 15:15: BD Posiflush) Sodium No 25 mL, Memoria Chloride 02-08 Route: IV, l 0.9% IV 15:15: Start date: 02/09/16 10:15:00 CDT, Duration: 30 day, Stop date: 03/10/16 10:14:00 CDT, PRN Line Flush BD Normal No Notes: Memori a Saline 02-08 (Same as: l Flush 15:15: BD Posiflush) Spironolact No Notes: Boy tadeo one 02-08 (Same As: l 14:00: Aldactone) irbesartan No Notes: Memor ia 02-08 (Same l 14:00: as:Avapro) Tradjenta No 5 mg, Memoria 02-08 Route: PO, l 14:00: Drug form: TAB, Daily, Dosing Weight 89.545, kg, Start date: 02/09/16 9:00:00 CDT Furosemide No Notes: Memor ia 20 MG Oral 8-24 (Same as: l Tablet 14:00: Lasix) October Anitra nn cause GI upset. Give with food or milk. Vitamin D3 No Notes: Memor ia 8-24 Same as : l 14:00: Vitamin D3 Amlodipine No Notes: Memor ia 8-24 (Same as: l 14:00: Norvasc) Miralax No Notes: Memoria 8-24 Dissolve l 14:00: in 8 oz of [place] 00 water or juice. (Same as: Miralax) Spironolact No Notes: Boy tadeo one 8-24 (Same As: l 14:00: Aldactone) irbesartan No Notes: Memor ia 8-24 (Same l 14:00: as:Avapro) Tradjenta No 5 mg, Memoria 8-24 Route: PO, l 14:00: Drug form: [place] 00 TAB, Daily, Dosing Weight 89.545, kg, Start date: 02/09/16 9:00:00 CDT Furosemide No Notes: Memor ia 20 MG Oral 8-24 (Same as: l Tablet 14:00: Lasix) October cause GI upset. Give with food or milk. Vitamin D3 No Notes: Memor ia 8-24 Same as : l 14:00: Vitamin D3 Amlodipine No Notes: Memor ia 8-24 (Same as: l 14:00: Norvasc) Miralax No Notes: Memoria 8-24 Dissolve l 14:00: in 8 oz of [place] 00 water or juice. (Same as: Miralax) Spironolact No Notes: Boy tadeo one 8-24 (Same As: l 14:00: Aldactone) irbesartan No Notes: Memor ia 8-24 (Same l 14:00: as:Avapro) Tradjenta No 5 mg, Memoria 8-24 Route: PO, l 14:00: Drug form: Luke 00 TAB, Daily, Dosing Weight 89.545, kg, Start date: 02/09/16 9:00:00 CDT Furosemide No Notes: Memor ia 20 MG Oral 8-24 (Same as: l Tablet 14:00: Lasix) October cause GI upset. Give with food or milk. Vitamin D3 No Notes: Memor ia 8-24 Same as : l 14:00: Vitamin D3 [place] 00 Amlodipine No Notes: Memor ia 8-24 (Same as: l 14:00: Norvasc) Luke 00 Miralax No Notes: Memoria 8-24 Dissolve l 14:00: in 8 oz of [place] 00 water or juice. (Same as: Miralax) Insulin, No Notes: Memoria Aspart, 8-24 Roll in l Human 06:52: palms of [place] 00 hands gently; Do not shake vigorously . (Same as: NovoLOG) "single patient use only" WASTE: F/P - Black; E - Municipal Trash Bin Stable for 28 days at room temperatur e. Expires in days from ____Date Glucagon No 1 mg, Memoria 8-24 Route: IM, l 06:52: Drug form: [place] 00 PDR/INJ, PRN, Dosing Weight 89.545, kg, PRN Blood Glucose Results, Start date: 02/09/16 1:52:00 CDT, Duration: 30 day, Stop date: 03/10/16 1:51:00 CDT Dextrose No 25 gm, 50 Boy tadeo 50% Syringe 8-24 mL, Route: l 06:52: IVP, Drug Form: INJ, Dosing Weight 89.545, kg, PRN, PRN Blood Glucose Results, Start date: 02/09/16 1:52:00 CDT, Duration: 30 day, Stop date: 03/10/16 1:51:00 CDT Insulin, No Notes: Memoria Aspart, 8-24 Roll in l Human 06:52: palms of [place] 00 hands gently; Do not shake vigorously . (Same as: NovoLOG) "single patient use only" WASTE: F/P - Black; E - Municipal Trash Bin Stable for 28 days at room temperatur e. Expires in days from ____Date Glucagon 2016-0 No 1 mg, Memoria 8-24 Route: IM, l 06:52: Drug form: [place] 00 PDR/INJ, PRN, Dosing Weight 89.545, kg, PRN Blood Glucose Results, Start date: 02/09/16 1:52:00 CDT, Duration: 30 day, Stop date: 03/10/16 1:51:00 CDT Dextrose 2016-0 No 25 gm, 50 Boy tadeo 50% Syringe 8-24 mL, Route: l 06:52: IVP, Drug Form: INJ, Dosing Weight 89.545, kg, PRN, PRN Blood Glucose Results, Start date: 02/09/16 1:52:00 CDT, Duration: 30 day, Stop date: 03/10/16 1:51:00 CDT Insulin, 2015-0 No Notes: Memoria Aspart, 8-24 Roll in l Human 06:52: palms of hands gently; Do not shake vigorously . (Same as: NovoLOG) "single patient use only" WASTE: F/P - Black; E - Municipal Trash Bin Stable for 28 days at room temperatur e. Expires in days from ____Date Glucagon 2015-0 No 1 mg, Memoria 824 Route: IM, l 06:52: Drug form: [place] 00 PDR/INJ, PRN, Dosing Weight 89.545, kg, PRN Blood Glucose Results, Start date: 02/09/16 1:52:00 CDT, Duration: 30 day, Stop date: 03/10/16 1:51:00 CDT Dextrose 2016-0 No 25 gm, 50 Boy tadeo 50% Syringe 8-24 mL, Route: l 06:52: IVP, Drug Form: INJ, Dosing Weight 89.545, kg, PRN, PRN Blood Glucose Results, Start date: 02/09/16 1:52:00 CDT, Duration: 30 day, Stop date: 03/10/16 1:51:00 CDT Crestor No Route: PO, Boy tadeo 8-24 Drug form: l 02:00: TAB, [place] 00 Bedtime, Dosing Weight 89.545, kg, Start date: 02/08/16 21:00:00 CDT, Duration: 30 day, Stop date: 03/08/16 21:00:00 CDT Insulin No Notes: Memoria Glargine 8-24 Same as l 100 UNT/ML 02:00: Lantus Anitra nn Injectable 00 Solostar Solution PEN Do not [Lantus] hold insulin without contacting prescriber "single patient use only" WASTE: F/P - Black; E - Municipal Trash Bin Stable for 28 days at room temperatur e. Expires in days from ____Date carvedilol No Notes: Memor ia 8-24 Give with l 02:00: food. Luke (Same As: Coreg) [facility] No Route: PO, Boy tadeo 8-24 Drug form: l 02:00: TAB, [place] 00 Bedtime, Dosing Weight 89.545, kg, Start date: 02/08/16 21:00:00 CDT, Duration: 30 day, Stop date: 03/08/16 21:00:00 CDT Insulin No Notes: Memoria Glargine 8-24 Same as l 100 UNT/ML 02:00: Lantus Anitra nn Injectable 00 Solostar Solution PEN Do not [Lantus] hold insulin without contacting prescriber "single patient use only" WASTE: F/P - Black; E - Municipal Trash Bin Stable for 28 days at room temperatur e. Expires in days from ____Date carvedilol No Notes: Memor ia 8-24 Give with l 02:00: food. [place] (Same As: Coreg) Crestor No Route: PO, Boy tadeo 8-24 Drug form: l 02:00: TAB, Luke 00 Bedtime, Dosing Weight 89.545, kg, Start date: 02/08/16 21:00:00 CDT, Duration: 30 day, Stop date: 03/08/16 21:00:00 CDT Insulin No Notes: Memoria Glargine 8-24 Same as l 100 UNT/ML 02:00: Lantus Anitra nn Injectable 00 Solostar Solution PEN Do not [Lantus] hold insulin without contacting prescriber "single patient use only" WASTE: F/P - Black; E - Municipal Trash Bin Stable for 28 days at room temperatur e. Expires in days from ____Date carvedilol No Notes: Memor ia 8-24 Give with l 02:00: food. [place] 00 (Same As: Coreg) Docusate Yes 100 mg = 1 Mem oria Sodium 100 8-23 cap, PO, l MG Oral 23:47: BID, 0 Luke Capsule 00 Refill(s) [Colace] Linagliptin No 5 mg = 1 Me moria 5 MG Oral 8-23 tab, PO, l Tablet 23:47: Daily, 0 [place] [Tradjenta] 00 Refill(s) 3 ML Yes 50 units, Memoria Insulin 8-23 SUB-Q, l Glargine 23:47: Bedtime, 0 Her kowalski 100 UNT/ML 00 Refill(s) Prefilled Syringe [Lantus] glimepiride Yes 4 mg, PO, M emoria 8-23 Daily, 0 l 23:47: Refill(s) Luke 00 Docusate Yes 100 mg = 1 Mem oria Sodium 100 8-23 cap, PO, l MG Oral 23:47: BID, 0 [place] Capsule 00 Refill(s) [Colace] Linagliptin No 5 mg = 1 Me moria 5 MG Oral 8-23 tab, PO, l Tablet 23:47: Daily, 0 Luke [Tradjenta] 00 Refill(s) 3 ML Yes 50 units, Memoria Insulin 8-23 SUB-Q, l Glargine 23:47: Bedtime, 0 Her kowalski 100 UNT/ML 00 Refill(s) Prefilled Syringe [Lantus] glimepiride Yes 4 mg, PO, M emoria 8-23 Daily, 0 l 23:47: Refill(s) [place] 00 Docusate Yes 100 mg = 1 Mem oria Sodium 100 8-23 cap, PO, l MG Oral 23:47: BID, 0 Luke Capsule 00 Refill(s) [Colace] Linagliptin No 5 mg = 1 Me moria 5 MG Oral 8-23 tab, PO, l Tablet 23:47: Daily, 0 Luke [Tradjenta] 00 Refill(s) 3 ML Yes 50 units, Memoria Insulin 8-23 SUB-Q, l Glargine 23:47: Bedtime, 0 Her kowalski 100 UNT/ML 00 Refill(s) Prefilled Syringe [Lantus] glimepiride Yes 4 mg, PO, M emoria 8-23 Daily, 0 l 23:47: Refill(s) Luke 00 Clonidine No 0.1 mg = 1 Me moria Hydrochlori 8-23 tab, PO, l de 0.1 MG 23:40: PRN [place] Oral Tablet 00 Hypertensi on, 0 Refill(s) Clonidine No 0.1 mg = 1 Me moria Hydrochlori 8-23 tab, PO, l de 0.1 MG 23:40: PRN Luke Oral Tablet 00 Hypertensi on, 0 Refill(s) Clonidine No 0.1 mg = 1 Me moria Hydrochlori 8-23 tab, PO, l de 0.1 MG 23:40: PRN Luke Oral Tablet 00 Hypertensi on, 0 Refill(s) Ancef + No Notes: Memoria sodium 8-23 (Same As: l chloride 23:00: Ancef, [place] 0.9% INJ 00 Kefzol) 100 mL MEDICATION WASTE Product Size: 1000 mg Product Wasted: ___ mg Ancef + No Notes: Memoria sodium 8-23 (Same As: l chloride 23:00: Ancef, [place] 0.9% INJ 00 Kefzol) 100 mL MEDICATION WASTE Product Size: 1000 mg Product Wasted: ___ mg Ancef + No Notes: Memoria sodium 8-23 (Same As: l chloride 23:00: Ancef, Luke 0.9% INJ 00 Kefzol) 100 mL MEDICATION WASTE Product Size: 1000 mg Product Wasted: ___ mg Docusate No Notes: Memoria Sodium 100 8-23 (Same as: l MG Oral 22:00: Colace) Luke Capsule 00 (Do Not [Colace] Crush) Docusate No Notes: Memoria Sodium 100 8-23 (Same as: l MG Oral 22:00: Colace) Luke Capsule 00 (Do Not [Colace] Crush) Docusate No Notes: Memoria Sodium 100 8-23 (Same as: l MG Oral 22:00: Colace) Luke Capsule 00 (Do Not [Colace] Crush) Ofirmev No 1,000 mg, Memor ia 8 Route: IV, l 19:25: ONCE, Dosing Weight 89, kg, Start date: 02/08/16 14:25:00 CDT, Stop date: 02/08/16 14:25:00 CDT Ofirmev No 1,000 mg, Memor ia 8 Route: IV, l 19:25: ONCE, Dosing Weight 89, kg, Start date: 02/08/16 14:25:00 CDT, Stop date: 02/08/16 14:25:00 CDT Ofirmev No 1,000 mg, Memor ia 8 Route: IV, l 19:25: ONCE, Dosing Weight 89, kg, Start date: 02/08/16 14:25:00 CDT, Stop date: 02/08/16 14:25:00 CDT Ondansetron No Notes: Boy tadeo 8-23 (Same as: l 18:22: Zofran) MEDICATION WASTE Product Size: 4 mg Product Wasted: ___ mg Flumazenil No Notes: Memor ia 8-23 (Same as: l 18:22: Romazicon) Naloxone No Notes: Memoria 8-23 Same as l 18:22: Narcan Morphine No Notes: Memoria 8-23 (Same l 18:22: as:MORPhin [place] 00 e Sulfate) Sodium No 1,000 mL, Memori a Chloride 02-07 Rate: 125 l 0.154 18:22: ml/hr, Luke MEQ/ML 00 Infuse Injectable over: 8 Solution hr, Route: IV, Dosing Weight 89.545 kg, Total Volume: 1,000, Start date: 02/08/16 13:22:00 CDT, Duration: 30 day, Stop date: 03/09/16 13:21:00 CDT Ondansetron No Notes: Boy tadeo 8-23 (Same as: l 18:22: Zofran) [place] 00 MEDICATION WASTE Product Size: 4 mg Product Wasted: ___ mg Flumazenil No Notes: Memor ia 02-07 (Same as: l 18:22: Romazicon) Luke Naloxone No Notes: Memoria 8 Same as l 18:22: Narcan Luke Morphine No Notes: Memoria 8-23 (Same l 18:22: as:MORPhin Luke 00 e Sulfate) Sodium No 1,000 mL, Memori a Chloride 02-07 Rate: 125 l 0.154 18:22: ml/hr, Luke MEQ/ML 00 Infuse Injectable over: 8 Solution hr, Route: IV, Dosing Weight 89.545 kg, Total Volume: 1,000, Start date: 02/08/16 13:22:00 CDT, Duration: 30 day, Stop date: 03/09/16 13:21:00 CDT Ondansetron No Notes: Boy tadeo 8-23 (Same as: l 18:22: Zofran) [place] 00 MEDICATION WASTE Product Size: 4 mg Product Wasted: ___ mg Flumazenil No Notes: Memor ia 8- (Same as: l 18:22: Romazicon) Luke Naloxone No Notes: Memoria 8-23 Same as l 18:22: Narcan [place] Morphine No Notes: Memoria 8-23 (Same l 18:22: as:MORPhin Luke 00 e Sulfate) Sodium No 1,000 mL, Memori a Chloride 02-07 Rate: 125 l 0.154 18:22: ml/hr, [place] MEQ/ML 00 Infuse Injectable over: 8 Solution hr, Route: IV, Dosing Weight 89.545 kg, Total Volume: 1,000, Start date: 02/08/16 13:22:00 CDT, Duration: 30 day, Stop date: 03/09/16 13:21:00 CDT Morphine No Notes: Memoria 02-07 Dose: l 18:00: Delay: Luke 00 Basal rate: 4hr limit: (Same as:PaulieRazz-[place] ct) Morphine No Notes: Memoria 02-07 Dose: l 18:00: Delay: Luke 00 Basal rate: 4hr limit: (Same as:[place]) Morphine No Notes: Memoria 02-07 Dose: l 18:00: Delay: Luke 00 Basal rate: 4hr limit: (Same as:[place]) Naloxone No Notes: Memoria 02-07 Same as l 17:53: Narcan [place] 00 Acetaminoph No Notes: Do M emoria en 325 MG / 02-07 not exceed l Hydrocodone 17:53: 4gm/day of [place] Bitartrate 00 acetaminop 10 MG Oral hen. (Same Tablet as: Ira [Ira 325/10) 10/325] Zofran No Notes: Memoria 02-07 (Same as: l 17:53: Zofran) [place] 00 MEDICATION WASTE Product Size: 4 mg Product Wasted: ___ mg Naloxone No Notes: Memoria 02-07 Same as l 17:53: Narcan Luke 00 Acetaminoph No Notes: Do M emoria en 325 MG / 02-07 not exceed l Hydrocodone 17:53: 4gm/day of Luke Bitartrate 00 acetaminop 10 MG Oral hen. (Same Tablet as: Ira [Ira 325/10) 10/325] Zofran No Notes: Memoria 02-07 (Same as: l 17:53: Zofran) Luke 00 MEDICATION WASTE Product Size: 4 mg Product Wasted: ___ mg Naloxone No Notes: Memoria 02-07 Same as l 17:53: Narcan Acetaminoph No Notes: Do M emoria en 325 MG / 02-07 not exceed l Hydrocodone 17:53: 4gm/day of Luke Bitartrate 00 acetaminop 10 MG Oral hen. (Same Tablet as: Ira [Ira 325/10) 10/325] Zofran No Notes: Memoria 02-07 (Same as: l 17:53: Zofran) MEDICATION WASTE Product Size: 4 mg Product Wasted: ___ mg Robaxin No Notes: Memoria 02-07 (Same l 17:52: as:Robaxin ) Lactated No 1,000 mL, Boy tadeo Ringers 02-07 Rate: 75 l 1,000 mL 17:52: ml/hr, Luke 00 Infuse over: 13.3 hr, Route: IV, Dosing Weight 89.545 kg, Total Volume: 1,000, Start date: 02/08/16 12:52:00 CDT, Duration: 30 day, Stop date: 03/09/16 12:51:00 CDT Flexeril No Notes: Memoria 02-07 (Same As: l 17:52: Flexeril) Diphenhydra No Notes: Boy tadeo mine 02-07 (Same as: l 17:52: Benadryl) phenol No Notes: Memoria 02-07 Chlorasept l 17:52: ic [place] (Same as: Chlorasept ic, Sore Throat [place]) WASTE: F/P - Black; E - Municipal Trash Bin Robaxin No Notes: Memoria 02-07 (Same l 17:52: as:Robaxin ) Lactated No 1,000 mL, Boy tadeo [place] 02-07 Rate: 75 l 1,000 mL 17:52: ml/hr, [place] Infuse over: 13.3 hr, Route: IV, Dosing Weight 89.545 kg, Total Volume: 1,000, Start date: 02/08/16 12:52:00 CDT, Duration: 30 day, Stop date: 03/09/16 12:51:00 CDT Flexeril No Notes: Memoria 02-07 (Same As: l 17:52: Flexeril) Luke 00 Diphenhydra No Notes: Boy tadeo mine 02-07 (Same as: l 17:52: Benadryl) phenol No Notes: Memoria 02-07 Chlorasept l 17:52: ic [place] (Same as: Chlorasept ic, Sore Throat [place]) WASTE: F/P - Black; E - Municipal Trash Bin phenol No Notes: Memoria 02-07 Chlorasept l 17:52: ic [place] (Same as: Chlorasept ic, Sore Throat [place]) WASTE: F/P - Black; E - Municipal Trash Bin Robaxin No Notes: Memoria 02-07 (Same l [...] mine 02-07 (Same as: l 17:52: Benadryl) ceFAZolin No Notes: Memori a 02-07 Same as: l 03:00: Ancef Luke 00 ceFAZolin No Notes: Memori a 02-07 Same as: l 03:00: Ancef ceFAZolin No Notes: Memori a 02-07 Same as: l 03:00: Ancef carvedilol Yes 12.5 mg = Me moria 12.5 mg 8-03 1 tab, PO, l oral tablet 18:26: Q12H, 0 Her kowalski 00 Refill(s) carvedilol Yes 12.5 mg = Me moria 12.5 mg 8-03 1 tab, PO, l oral tablet 18:26: Q12H, 0 Her kowalski 00 Refill(s) carvedilol Yes 12.5 mg = Me moria 12.5 mg 8-03 1 tab, PO, l oral tablet 18:26: Q12H, 0 Her kowalski 00 Refill(s) Acetaminoph No Notes: Boy tadeo en 325 MG / 01-17 Same as l Hydrocodone 14:32: Ira Anitra nn Bitartrate 00 325-7.5mg 7.5 MG Oral Do not Tablet exceed [Ira 4gm/day of 7.5/325] acetaminop hen. Acetaminoph No Notes: Boy tadeo en 325 MG / 01-17 Same as l Hydrocodone 14:32: Ira Anitra nn Bitartrate 00 325-7.5mg 7.5 MG Oral Do not Tablet exceed [Ira 4gm/day of 7.5/325] acetaminop hen. Acetaminoph No Notes: Boy tadeo en 325 MG / 802 Same as l Hydrocodone 14:32: Ira Anitra nn Bitartrate 00 325-7.5mg 7.5 MG Oral Do not Tablet exceed [Ira 4gm/day of 7.5/325] acetaminop hen. sodium No 15 mmol, 5 Memor ia phosphate + 8-01 mL, Route: l sodium 21:42: IVPB, PRN, Anitra nn chloride 00 Dosing 0.9% INJ Weight 250 mL 97.983, kg, PRN Abnormal Lab Result, Start date: 01/17/16 16:42:00 CDT, Stop date: 02/16/16 16:41:00 CDT sodium No 15 mmol, 5 Memor ia phosphate + 8-01 mL, Route: l sodium 21:42: IVPB, PRN, Anitra nn chloride 00 Dosing 0.9% INJ Weight 250 mL 97.983, kg, PRN Abnormal Lab Result, Start date: 01/17/16 16:42:00 CDT, Stop date: 02/16/16 16:41:00 CDT sodium No 15 mmol, 5 Memor ia phosphate + 8-01 mL, Route: l sodium 21:42: IVPB, PRN, Anitra nn chloride 00 Dosing 0.9% INJ Weight 250 mL 97.983, kg, PRN Abnormal Lab Result, Start date: 01/17/16 16:42:00 CDT, Stop date: 02/16/16 16:41:00 CDT heparin No Notes: Memoria sodium, 7-31 porcine l porcine 02:00: heparin Luke 2500 UNT/ML 00 Injectable Solution heparin No Notes: Memoria sodium, 7-31 porcine l porcine 02:00: heparin [place] 2500 UNT/ML 00 Injectable Solution heparin No Notes: Memoria sodium, 7-31 porcine l porcine 02:00: heparin Luke 2500 UNT/ML 00 Injectable Solution gabapentin No Notes: Memor ia 300 MG Oral 7-31 (Same as: l Capsule 00:22: Neurontin) Herm robert gabapentin No Notes: Memor ia 300 MG Oral 7-31 (Same as: l Capsule 00:22: Neurontin) Herm robert gabapentin No Notes: Memor ia 300 MG Oral 7-31 (Same as: l Capsule 00:22: Neurontin) Herm robert 00 Insulin, No Notes: Memoria Aspart, 7-29 Roll in l Human 21:30: palms of [place] 00 hands gently; Do not shake vigorously . (Same as: NovoLOG) "single patient use only" WASTE: F/P - Black; E - Municipal Trash Bin Stable for 28 days at room temperatur e. Expires in days from ____Date Insulin, No Notes: Memoria Aspart, 7-29 Roll in l Human 21:30: palms of [place] 00 hands gently; Do not shake vigorously . (Same as: NovoLOG) "single patient use only" WASTE: F/P - Black; E - Municipal Trash Bin Stable for 28 days at room temperatur e. Expires in days from ____Date Insulin, No Notes: Memoria Aspart, - Roll in l Human 21:30: palms of [place] 00 hands gently; Do not shake vigorously . (Same as: NovoLOG) "single patient use only" WASTE: F/P - Black; E - Municipal Trash Bin Stable for 28 days at room temperatur e. Expires in days from ____Date Hydralazine No Notes: Boy tadeo 7-29 (Same as: l 19:44: Apresoline [place] 00 ) Push over 5 minutes Hydralazine No Notes: Boy tadeo 7-29 (Same as: l 19:44: Apresoline [place] 00 ) Push over 5 minutes Hydralazine No Notes: Boy tadeo 7-29 (Same as: l 19:44: Apresoline [place] 00 ) Push over 5 minutes Ativan No Notes: Memoria 7-28 (Same as: l 20:06: Ativan) [place] 00 Ativan No Notes: Memoria 7-28 (Same as: l 20:06: Ativan) Luke 00 Ativan No Notes: Memoria 7-28 (Same as: l 20:06: Ativan) [place] 00 Acetaminoph No 1 tab, Boy tadeo en 325 MG / 01-12 Route: PO, l Hydrocodone 20:05: Drug Form: [place] Bitartrate 00 TAB, 10 MG Oral Dosing Tablet Weight [Ira 97.983, 10/325] kg, Q4H, Start date: 01/13/16 15:05:00 CDT, Stop date: 02/12/16 16:00:00 CDT Acetaminoph No 1 tab, Boy tadeo en 325 MG / 01-12 Route: PO, l Hydrocodone 20:05: Drug Form: [place] Bitartrate 00 TAB, 10 MG Oral Dosing Tablet Weight [Ira 97.983, 10/325] kg, Q4H, Start date: 01/13/16 15:05:00 CDT, Stop date: 02/12/16 16:00:00 CDT Acetaminoph 2015-0 No 1 tab, Boy tadeo en 325 MG / 01-12 Route: PO, l Hydrocodone 20:05: Drug Form: Luke Bitartrate 00 TAB, 10 MG Oral Dosing Tablet Weight [Ira 97.983, 10/325] kg, Q4H, Start date: 01/13/16 15:05:00 CDT, Stop date: 02/12/16 16:00:00 CDT Miralax 2015-0 No Notes: Memoria 7-28 Dissolve l 14:11: in 8 oz of [place] 00 water or juice. (Same as: Miralax) Miralax 0 No Notes: Memoria 7-28 Dissolve l 14:11: in 8 oz of Luke 00 water or juice. (Same as: Miralax) Miralax 0 No Notes: Memoria 7-28 Dissolve l 14:11: in 8 oz of Luke 00 water or juice. (Same as: Miralax) Lorazepam 2015-0 No 0.5 mg, Memor ia 01-11 Route: l 15:44: IVP, Drug [place] 00 form: INJ, ONCE, Dosing Weight 97.983, kg, PRN Anxiety, Priority: NOW, Start date: 01/12/16 10:44:00 CDT Lorazepam 2015-0 No 0.5 mg, Memor ia 01-11 Route: l 15:44: IVP, Drug Luke 00 form: INJ, ONCE, Dosing Weight 97.983, kg, PRN Anxiety, Priority: NOW, Start date: 01/12/16 10:44:00 CDT Lorazepam 2015-0 No 0.5 mg, Memor ia 01-11 Route: l 15:44: IVP, Drug Luke 00 form: INJ, ONCE, Dosing Weight 97.983, kg, PRN Anxiety, Priority: NOW, Start date: 01/12/16 10:44:00 CDT Tradjenta 2016-0 No 5 mg, Memoria 01-11 Route: PO, l 14:00: Drug form: [place] 00 TAB, Daily, Dosing Weight 97.983, kg, Start date: 01/12/16 9:00:00 CDT irbesartan 2015-0 No Notes: Memor ia 7-27 (Same l 14:00: as:Avapro) Furosemide No Notes: Memor ia 20 MG Oral 7-27 (Same as: l Tablet 14:00: Lasix) October cause GI upset. Give with food or milk. glimepiride No Notes: Boy tadeo 7-27 (Same as: l 14:00: Amaryl) Tradjenta 5 No Jhon Torres emoria mg 7-27 5 mg l (Patient's 14:00: (Patient's H ermann own 00 own medicine) medicine), 1 tab, Drug form: MISC, Route: PO, Daily, 01/12/16 9:00:00 CDT, Duration: 30 day, Stop date: 02/10/16 9:00:00 CDT Aspirin 81 No Notes: Do Me moria MG Enteric 7-27 not crush l Coated 14:00: or chew. Luke Tablet (Same As: Ecotrin) Amlodipine No Notes: Memor ia 7-27 (Same as: l 14:00: Norvasc) Docusate No Notes: Memoria 7-27 (Same as: l 14:00: Colace) Luke (Do Not Crush) Spironolact No Notes: Boy tadeo one 7-27 (Same As: l 14:00: Aldactone) Tradjenta No 5 mg, Memoria 7-27 Route: PO, l 14:00: Drug form: Luke 00 TAB, Daily, Dosing Weight 97.983, kg, Start date: 01/12/16 9:00:00 CDT irbesartan No Notes: Memor ia 7-27 (Same l 14:00: as:Avapro) Furosemide No Notes: Memor ia 20 MG Oral 7-27 (Same as: l Tablet 14:00: Lasix) October cause GI upset. Give with food or milk. glimepiride No Notes: Boy tadeo 7-27 (Same as: l 14:00: Amaryl) Tradjenta No Tradjenta M emoria mg 7-27 5 mg l (Patient's 14:00: (Patient's H ermann own 00 own medicine) medicine), 1 tab, Drug form: MISC, Route: PO, Daily, 01/12/16 9:00:00 CDT, Duration: 30 day, Stop date: 02/10/16 9:00:00 CDT Aspirin 81 No Notes: Do Me moria MG Enteric 7-27 not crush l Coated 14:00: or chew. Luke Tablet 00 (Same As: Ecotrin) Amlodipine No Notes: Memor ia 7-27 (Same as: l 14:00: Norvasc) Luke Docusate No Notes: Memoria 7-27 (Same as: l 14:00: Colace) Luke (Do Not Crush) Spironolact No Notes: Boy tadeo one 7-27 (Same As: l 14:00: Aldactone) Tradjenta No 5 mg, Memoria 7-27 Route: PO, l 14:00: Drug form: [place] 00 TAB, Daily, Dosing Weight 97.983, kg, Start date: 01/12/16 9:00:00 CDT irbesartan No Notes: Memor ia 7-27 (Same l 14:00: as:Avapro) Furosemide No Notes: Memor ia 20 MG Oral 7-27 (Same as: l Tablet 14:00: Lasix) May nn cause GI upset. Give with food or milk. glimepiride No Notes: Boy tadeo 7-27 (Same as: l 14:00: Amaryl) Luke Tradjenta 5 No Tradjenta M emoria mg 7-27 5 mg l (Patient's 14:00: (Patient's H erm own 00 own medicine) medicine), 1 tab, Drug form: MISC, Route: PO, Daily, 01/12/16 9:00:00 CDT, Duration: 30 day, Stop date: 02/10/16 9:00:00 CDT Aspirin 81 No Notes: Do Me moria MG Enteric 7-27 not crush l Coated 14:00: or chew. [place] Tablet (Same As: Ecotrin) Amlodipine No Notes: Memor ia 01-11 (Same as: l 14:00: Norvasc) Docusate No Notes: Memoria 01-11 (Same as: l 14:00: Colace) (Do Not Crush) Spironolact No Notes: Boy tadeo one 01-11 (Same As: l 14:00: Aldactone) Ativan No Notes: Memoria 01-11 (Same as: l 13:54: Ativan) Ativan No Notes: Memoria 01-11 (Same as: l 13:54: Ativan) Ativan No Notes: Memoria 01-11 (Same as: l 13:54: Ativan) Sodium No 25 mL, Memoria Chloride 01-11 Route: IV, l 0.9% IV 13:19: Start date: 01/12/16 8:19:00 CDT, Duration: 30 day, Stop date: 02/11/16 8:18:00 CDT, PRN Line Flush BD Normal No Notes: Memori a Saline 01-11 (Same as: l Flush 13:19: BD Posiflush) Sodium No 25 mL, Memoria Chloride 01-11 Route: IV, l 0.9% IV 13:19: Start date: 01/12/16 8:19:00 CDT, Duration: 30 day, Stop date: 02/11/16 8:18:00 CDT, PRN Line Flush BD Normal No Notes: Memori a Saline 01-11 (Same as: l Flush 13:19: BD Posiflush) Sodium No 25 mL, Memoria Chloride 01-11 Route: IV, l 0.9% IV 13:19: Start date: 01/12/16 8:19:00 CDT, Duration: 30 day, Stop date: 02/11/16 8:18:00 CDT, PRN Line Flush BD Normal 2016-0 No Notes: Memori a Saline 7-27 (Same as: l Flush 13:19: BD [place] 00 Posiflush) Insulin, No Notes: Memoria Aspart, 7-27 Roll in l Human 03:38: palms of [place] 00 hands gently; Do not shake vigorously . (Same as: NovoLOG) "single patient use only" WASTE: F/P - Black; E - Municipal Trash Bin Stable for 28 days at room temperatur e. Expires in days from ____Date Dextrose No 12.5 gm, Memor ia 50% Syringe 7-27 25 mL, l 03:38: Route: [place] 00 IVP, Drug Form: INJ, Dosing Weight 97.983, kg, PRN, PRN Blood Glucose Results, Start date: 01/11/16 22:38:00 CDT, Duration: 30 day, Stop date: 02/10/16 22:37:00 CDT Glucagon No 1 mg, Memoria 7- Route: IM, l 03:38: Drug form: Luke 00 PDR/INJ, PRN, Dosing Weight 97.983, kg, PRN Blood Glucose Results, Start date: 01/11/16 22:38:00 CDT, Duration: 30 day, Stop date: 02/10/16 22:37:00 CDT Insulin, 0 No Notes: Memoria Aspart, 7- Roll in l Human 03:38: palms of [place] 00 hands gently; Do not shake vigorously . (Same as: NovoLOG) "single patient use only" WASTE: F/P - Black; E - Municipal Trash Bin Stable for 28 days at room temperatur e. Expires in days from ____Date Dextrose No 12.5 gm, Memor ia 50% Syringe 7-27 25 mL, l 03:38: Route: Luke 00 IVP, Drug Form: INJ, Dosing Weight 97.983, kg, PRN, PRN Blood Glucose Results, Start date: 01/11/16 22:38:00 CDT, Duration: 30 day, Stop date: 02/10/16 22:37:00 CDT Glucagon No 1 mg, Memoria 01-11 Route: IM, l 03:38: Drug form: Luke 00 PDR/INJ, PRN, Dosing Weight 97.983, kg, PRN Blood Glucose Results, Start date: 01/11/16 22:38:00 CDT, Duration: 30 day, Stop date: 02/10/16 22:37:00 CDT Insulin, No Notes: Memoria Aspart, 01-11 Roll in l Human 03:38: palms of [place] 00 hands gently; Do not shake vigorously . (Same as: NovoLOG) "single patient use only" WASTE: F/P - Black; E - Municipal Trash Bin Stable for 28 days at room temperatur e. Expires in days from ____Date Dextrose No 12.5 gm, Memor ia 50% Syringe 01-11 25 mL, l 03:38: Route: [place] 00 IVP, Drug Form: INJ, Dosing Weight 97.983, kg, PRN, PRN Blood Glucose Results, Start date: 01/11/16 22:38:00 CDT, Duration: 30 day, Stop date: 02/10/16 22:37:00 CDT Glucagon No 1 mg, Memoria 01-11 Route: IM, l 03:38: Drug form: [place] 00 PDR/INJ, PRN, Dosing Weight 97.983, kg, PRN Blood Glucose Results, Start date: 01/11/16 22:38:00 CDT, Duration: 30 day, Stop date: 02/10/16 22:37:00 CDT Lipitor No Notes: Memoria 01-11 (Same As: l 02:38: Lipitor) Luke Lipitor No Notes: Memoria 7- (Same As: l 02:38: Lipitor) Luke Lipitor No Notes: Memoria 01-11 (Same As: l 02:38: Lipitor) [place] 00 Lantus No Notes: Memoria 01-11 Same as l 02:00: Lantus Luke 00 Solostar PEN Do not hold insulin without contacting prescriber "single patient use only" WASTE: F/P - Black; E - Municipal Trash Bin Stable for 28 days at room temperatur e. Expires in days from ____Date carvedilol No Notes: Memor ia 7-27 Give with l 02:00: food. Luke (Same As: Coreg) [place] No Route: PO, Boy tadeo 7-27 Drug form: l 02:00: TAB, Luke 00 Bedtime, Dosing Weight 97.983, kg, Start date: 01/11/16 21:00:00 CDT, Duration: 30 day, Stop date: 02/09/16 21:00:00 CDT Lantus No Notes: Memoria 7 Same as l 02:00: Lantus Luke 00 Solostar PEN Do not hold insulin without contacting prescriber "single patient use only" WASTE: F/P - Black; E - Municipal Trash Bin Stable for 28 days at room temperatur e. Expires in days from ____Date carvedilol No Notes: Memor ia 7 Give with l 02:00: food. [place] (Same As: Coreg) [facility] No Route: PO, Boy tadeo 7-27 Drug form: l 02:00: TAB, Luke 00 Bedtime, Dosing Weight 97.983, kg, Start date: 01/11/16 21:00:00 CDT, Duration: 30 day, Stop date: 02/09/16 21:00:00 CDT Lantus No Notes: Memoria 727 Same as l 02:00: Lantus [place] 00 Solostar PEN Do not hold insulin without contacting prescriber "single patient use only" WASTE: F/P - Black; E - Municipal Trash Bin Stable for 28 days at room temperatur e. Expires in days from ____Date carvedilol No Notes: Memor ia 727 Give with l 02:00: food. [place] 00 (Same As: Coreg) [facility] No Route: PO, Boy tadeo 01-11 Drug form: l 02:00: TAB, Luke Bedtime, Dosing Weight 97.983, kg, Start date: 01/11/16 21:00:00 CDT, Duration: 30 day, Stop date: 02/09/16 21:00:00 CDT Acetaminoph No Notes: Do M emoria en 325 MG / 01-10 not exceed l Hydrocodone 23:00: 4gm/day of [place] Bitartrate 00 acetaminop 10 MG Oral hen. (Same Tablet as: Ira [Ira 325/10) 10/325] Enoxaparin No Notes: Memor ia - (Same as: l 23:00: Lovenox) [place] 00 Acetaminoph No Notes: Do M emoria en 325 MG / 01-10 not exceed l Hydrocodone 23:00: 4gm/day of [place] Bitartrate 00 acetaminop 10 MG Oral hen. (Same Tablet as: Ira [Ira 325/10) 10/325] Enoxaparin No Notes: Memor ia - (Same as: l 23:00: Lovenox) Luke 00 Acetaminoph No Notes: Do M emoria en 325 MG / 01-10 not exceed l Hydrocodone 23:00: 4gm/day of Luke Bitartrate 00 acetaminop 10 MG Oral hen. (Same Tablet as: Ira [Ira 325/10) 10/325] Enoxaparin No Notes: Memor ia - (Same as: l 23:00: Lovenox) Luke Clonidine No Notes: Memori a Hydrochlori 7-26 (Same As: l de 0.1 MG 22:56: Catapres) Her kowalski Oral Tablet 00 Clonidine No Notes: Memori a Hydrochlori 7-26 (Same As: l de 0.1 MG 22:56: Catapres) Her kowalski Oral Tablet 00 Clonidine No Notes: Memori a Hydrochlori 7-26 (Same As: l de 0.1 MG 22:56: Catapres) Her kowalski Oral Tablet 00 Sodium No 1,000 mL, Memori a Chloride 7-26 Rate: 45 l 0.154 22:53: ml/hr, Luke MEQ/ML 00 Infuse Injectable over: 22.2 Solution hr, Route: IV, Dosing Weight 97.983 kg, Total Volume: 1,000, Start date: 01/11/16 17:53:00 CDT, Duration: 30 day, Stop date: 02/10/16 17:52:00 CDT Saline No Notes: Memoria Flush 0.9% 7-26 (Same as: l 22:53: BD Luke 00 Posiflush) Morphine No Notes: Memoria 7-26 (Same l 22:53: as:MORPhin [place] 00 e Sulfate) Ondansetron No Notes: Boy tadeo 7-26 (Same as: l 22:53: Zofran) [place] 00 MEDICATION WASTE Product Size: 4 mg Product Wasted: ___ mg Acetaminoph No 100.4 F, M kristine en 01-10 Start l 22:53: date: [place] 01/11/16 17:53:00 CDT, Duration: 30 day, Stop date: 02/10/16 17:52:00 CDT Sodium No 1,000 mL, Memori a Chloride 7-26 Rate: 45 l 0.154 22:53: ml/hr, [place] MEQ/ML 00 Infuse Injectable over: 22.2 Solution hr, Route: IV, Dosing Weight 97.983 kg, Total Volume: 1,000, Start date: 01/11/16 17:53:00 CDT, Duration: 30 day, Stop date: 02/10/16 17:52:00 CDT Saline No Notes: Memoria Flush 0.9% 7-26 (Same as: l 22:53: BD Luke 00 Posiflush) Morphine No Notes: Memoria 7-26 (Same l 22:53: as:MORPhin [place] 00 e Sulfate) Ondansetron No Notes: Boy tadeo 7-26 (Same as: l 22:53: Zofran) Luke 00 MEDICATION WASTE Product Size: 4 mg Product Wasted: ___ mg Acetaminoph No 100.4 F, M emoria en 01-10 Start l 22:53: date: 01/11/16 17:53:00 CDT, Duration: 30 day, Stop date: 02/10/16 17:52:00 CDT Sodium No 1,000 mL, Memori a Chloride 01-10 Rate: 45 l 0.154 22:53: ml/hr, MEQ/ML 00 Infuse Injectable over: 22.2 Solution hr, Route: IV, Dosing Weight 97.983 kg, Total Volume: 1,000, Start date: 01/11/16 17:53:00 CDT, Duration: 30 day, Stop date: 02/10/16 17:52:00 CDT Saline No Notes: Memoria Flush 0.9% 01-10 (Same as: l 22:53: BD Posiflush) Morphine No Notes: Memoria - (Same l 22:53: as:MORPhin e Sulfate) Ondansetron No Notes: Boy tadeo 01-10 (Same as: l 22:53: Zofran) MEDICATION WASTE Product Size: 4 mg Product Wasted: ___ mg Acetaminoph No 100.4 Brian Quilesa en 01-10 Start l 22:53: date: 01/11/16 17:53:00 CDT, Duration: 30 day, Stop date: 02/10/16 17:52:00 CDT irbesartan Yes 300 mg = 1 M emoria 300 mg oral 7-26 tab, PO, l tablet 22:27: Daily, # 30 tab, 0 Refill(s) irbesartan Yes 300 mg = 1 M emoria 300 mg oral 7-26 tab, PO, l tablet 22:27: Daily, # Luke 00 30 tab, 0 Refill(s) irbesartan Yes 300 mg = 1 M emoria 300 mg oral 7-26 tab, PO, l tablet 22:27: Daily, # Luke 00 30 tab, 0 Refill(s) Co Q-10 100 Yes 200 mg = 2 Memoria mg oral 7-26 cap, PO, l capsule 22:21: Daily, 0 Richard n 00 Refill(s) Aspirin 81 Yes 81 mg = 1 Me moria MG Enteric 7-26 tab, PO, l Coated 22:21: Daily, # Luke Tablet 00 90 tab, 3 Refill(s) Vitamin D3 Yes 2,000 Memori a 7-26 IntlUnit, l 22:21: PO, Daily, Luke 00 0 Refill(s) Rosuvastati Yes See Memori a n calcium 5 7-26 Instructio l MG Oral 22:21: ns, 1 tab Anitra nn Tablet 00 PO Bedtime [Crestor] tuesdays and fridays, 0 Refill(s) spironolact Yes 25 mg = 1 M emoria one 25 mg 7-26 tab, PO, l oral tablet 22:21: Daily, # He rmann 00 30 tab, 3 Refill(s) Docusate Yes 300 mg = 3 Mem oria Sodium 100 7-26 cap, PO, l MG Oral 22:21: Daily, 0 Richard n Capsule 00 Refill(s) [Colace] Furosemide Yes 20 mg = 1 Me moria 20 MG Oral 7-26 tab, PO, l Tablet 22:21: Daily, # [place] 00 30 tab, 0 Refill(s) Co Q-10 100 Yes 200 mg = 2 Memoria mg oral 7-26 cap, PO, l capsule 22:21: Daily, 0 Richard n 00 Refill(s) Aspirin 81 Yes 81 mg = 1 Me moria MG Enteric 7-26 tab, PO, l Coated 22:21: Daily, # Luke Tablet 00 90 tab, 3 Refill(s) Vitamin D3 Yes 2,000 Memori a 7-26 IntlUnit, l 22:21: PO, Daily, Luke 00 0 Refill(s) Rosuvastati Yes See Memori a n calcium 5 7-26 Instructio l MG Oral 22:21: ns, 1 tab Anitra nn Tablet 00 PO Bedtime [Crestor] tuesdays and fridays, 0 Refill(s) spironolact Yes 25 mg = 1 M emoria one 25 mg 7-26 tab, PO, l oral tablet 22:21: Daily, # He rmann 00 30 tab, 3 Refill(s) Docusate Yes 300 mg = 3 Mem oria Sodium 100 7-26 cap, PO, l MG Oral 22:21: Daily, 0 Richard n Capsule 00 Refill(s) [Colace] Furosemide Yes 20 mg = 1 Me moria 20 MG Oral 7-26 tab, PO, l Tablet 22:21: Daily, # [place] 00 30 tab, 0 Refill(s) Co Q-10 100 Yes 200 mg = 2 Memoria mg oral 7-26 cap, PO, l capsule 22:21: Daily, 0 Richard n 00 Refill(s) Aspirin 81 Yes 81 mg = 1 Me moria MG Enteric 7-26 tab, PO, l Coated 22:21: Daily, # Luke Tablet 00 90 tab, 3 Refill(s) Vitamin D3 Yes 2,000 Memori a 7-26 IntlUnit, l 22:21: PO, Daily, [place] 00 0 Refill(s) Rosuvastati Yes See Memori a n calcium 5 -26 Instructio l MG Oral 22:21: ns, 1 tab Anitra nn Tablet 00 PO Bedtime [Crestor] tuesdays and fridays, 0 Refill(s) spironolact Yes 25 mg = 1 M emoria one 25 mg 7-26 tab, PO, l oral tablet 22:21: Daily, # He rmann 00 30 tab, 3 Refill(s) Docusate Yes 300 mg = 3 Mem oria Sodium 100 7-26 cap, PO, l MG Oral 22:21: Daily, 0 Richard n Capsule 00 Refill(s) [Colace] Furosemide Yes 20 mg = 1 Me moria 20 MG Oral 7-26 tab, PO, l Tablet 22:21: Daily, # [place] 00 30 tab, 0 Refill(s) Linagliptin Yes 5 mg = 1 Me moria 5 MG Oral 7-26 tab, PO, l Tablet 22:13: Daily, # Luke [Tradjenta] 00 30 tab, 3 Refill(s) Linagliptin Yes 5 mg = 1 Me moria 5 MG Oral 7-26 tab, PO, l Tablet 22:13: Daily, # Luke [Tradjenta] 00 30 tab, 3 Refill(s) Linagliptin Yes 5 mg = 1 Me moria 5 MG Oral - tab, PO, l Tablet 22:13: Daily, # Luke [Tradjenta] 00 30 tab, 3 Refill(s) Acetaminoph Yes 2 tabs, Mem oria en 325 MG / 01-10 PO, Q6H, 0 l Hydrocodone 22:01: Refill(s) [place] Bitartrate 00 10 MG Oral Tablet [Ira 10/325] Amlodipine Yes 10 mg, PO, M emoria 01-10 Daily, 0 l 22:01: Refill(s) Luke Acetaminoph Yes 2 tabs, Mem oria en 325 MG / 01-10 PO, Q6H, 0 l Hydrocodone 22:01: Refill(s) [place] Bitartrate 00 10 MG Oral Tablet [Ira 10/325] Amlodipine Yes 10 mg, PO, M emoria 01-10 Daily, 0 l 22:01: Refill(s) Luke Acetaminoph Yes 2 tabs, Mem oria en 325 MG / 01-10 PO, Q6H, 0 l Hydrocodone 22:01: Refill(s) [place] Bitartrate 00 10 MG Oral Tablet [Ira 10/325] Amlodipine Yes 10 mg, PO, M emoria 01-10 Daily, 0 l 22:01: Refill(s) [place] 00 aspirin RX aspirin RX 2012-06 No aspirin RX Arlin by other MD by other 0-30 by other [facility] 00:00: MD [facility] aspirin RX aspirin RX 2012-06 No aspirin RX Arlin by other by other 0-30 by other Orth[facility] 00:00: MD [facility] aspirin RX aspirin RX 2012-06 No aspirin RX Arlin by other by other 0-30 by other Orth[facility] 00:00: MD [facility] aspirin RX aspirin RX 2012-06 No aspirin RX Arlin by other by other 0-30 by other Orthope 00:00: MD guerrero 00 [facility] Pepcid Yes Rigoberto 20 mg, 1 Boy tadeo mg oral 4-21 Skyler tab, PO, l tablet 13:44: Meiner BID, 60 Richard n 03 tab, Substituti on Allowed Pepcid 20 Yes Rigoberto 20 mg, 1 Boy tadeo mg oral 4-21 [place] tab, PO, l tablet 13:44: Meiner BID, 60 Richard n 03 tab, Substituti on Allowed Pepcid 20 Yes Rigoberto 20 mg, 1 Boy tadeo mg oral 4-21 [place] tab, PO, l tablet 13:44: Meiner BID, 60 Richard n 03 tab, Substituti on Allowed Ira Yes Rigoberto 1-2 tab, Memoria 10/325 oral 4-21 Skyler PO, Q4-6H, l tablet 13:43: Meiner PRN, 90 Richard n 05 tab, Pain, Substituti on Allowed, Maintenanc e Ira Yes Rigoberto 1-2 tab, Memoria 10/325 oral 4-21 Skyler PO, Q4-6H, l tablet 13:43: Meiner PRN, 90 Richard n 05 tab, Pain, Substituti on Allowed, Maintenanc e Ira Yes Rigoberto 1-2 tab, Memoria 10/325 oral 4-21 Skyler PO, Q4-6H, l tablet 13:43: Meiner PRN, 90 Richard n 05 tab, Pain, Substituti on Allowed, Maintenanc e Flexeril 10 Yes Rigoberto 10 mg, 1 Me moria mg oral 4-21 [place]yler tab, PO, l tablet 13:42: Meiner TID, PRN, Herm robert 53 30 tab, for spasm, Substituti on Allowed, TAB Flexeril 10 Yes Rigoberto 10 mg, 1 Me moria mg oral 4-21 [place]yler tab, PO, l tablet 13:42: Meiner TID, PRN, Herm robert 53 30 tab, for spasm, Substituti on Allowed, TAB Flexeril 10 Yes Rigoberto 10 mg, 1 [...] on AllowedTak e with or without food Medrol Yes Rigoberto As Memoria Dosepak 4 4-21 [place] directed l mg Tablet 13:42: Meiner on package Luke 51 instructio ns, PO, Daily, Take with or without food, 1 Pack, Substituti on AllowedTak e with or without food Medrol Yes Rigoberto As Memoria Dosepak 4 [...] cap, Constipati on, Substituti on Allowed, CAP Colace 100 Yes Rigoberto 100 mg, 1 Me moria mg oral 4-21 [place] cap, PO, l capsule 13:42: Meiner BID, PRN, Her kowalski 48 20 cap, Constipati on, Substituti on Allowed, CAP Colace 100 Yes Rigoberto 100 mg, 1 Me moria mg oral 4-21 [place] cap, PO, l capsule 13:42: Meiner BID, PRN, Her kowalski 48 20 cap, Constipati on, Substituti on Allowed, CAP diphenhydrA No Bob 25 mg, 1 Memoria MINE 25 mg 4-21 Rodgers cap, l oral 01:00: Reji Route: PO, Richard thompson tablet, 00 Drug form: disintegrat CAP, Q8H, ing Dosing Weight 91.818, kg, PRN Anxiety, Start date: 10/05/12 20:00:00, Duration: 30 day, Stop date: 11/04/12 19:59:00 diphenhydrA No Bob 25 mg, 1 Memoria MINE 25 mg 4-21 Rodgers cap, l oral 01:00: Reji Route: PO, Richard n tablet, 00 Drug form: disintegrat CAP, Q8H, ing Dosing Weight 91.818, kg, PRN Anxiety, Start date: 10/05/12 20:00:00, Duration: 30 day, Stop date: 11/04/12 19:59:00 diphenhydrA 2013-0 No Bob 25 mg, 1 Memoria MINE 25 mg 4-21 Rodgers cap, l oral 01:: Reji Route: PO, Richard n tablet, 00 Drug form: disintegrat CAP, Q8H, ing Dosing Weight 91.818, kg, PRN Anxiety, Start date: 10/05/12 20:00:00, Duration: 30 day, Stop date: 11/04/12 19:59:00 Lantus 2013-0 No Estela 10 unit, Memor ia 4-20 Young 0.1 mL, l 23:46: Route: [place] 00 SUB-Q, Drug form: INJ, ONCE, Dosing Weight 91.818, kg, Start date: 10/05/12 18:46:00, Stop date: 10/05/12 18:46:00 Lantus 2013-0 No Estela 10 unit, Memor ia 4-20 Young 0.1 mL, l 23:46: Route: [place] SUB-Q, Drug form: INJ, ONCE, Dosing Weight 91.818, kg, Start date: 10/05/12 18:46:00, Stop date: 10/05/12 18:46:00 Lantus 2013-0 No Estela 10 unit, Memor ia 4-20 Young 0.1 mL, l 23:46: Route: [place] 00 SUB-Q, Drug form: INJ, ONCE, Dosing Weight 91.818, kg, Start date: 10/05/12 18:46:00, Stop date: 10/05/12 18:46:00 insulin 2013-0 No Estela 3 unit, Memor ia aspart 4-20 Young 0.03 mL, l 22:13: Route: [place] SUB-Q, Drug form: SOLN, TID-Before Meals, Dosing Weight 91.818, kg, PRN Blood Glucose Results, Start date: 10/05/12 17:13:00, Duration: 30 day, Stop date: 11/04/12 17:12:00 glucagon 2012-0 No Estela 1 mg, Memori a 4-20 Young Route: IM, l 22:13: Drug form: [place] 00 PDR/INJ, PRN, Dosing Weight 91.818, kg, PRN Blood Glucose Results, Start date: 10/05/12 17:13:00, Duration: 30 day, Stop date: 11/04/12 17:12:00 Dextrose 2012-0 No Estela 12.5 gm, Mem oria 50% Syringe 4-20 Young 25 mL, l 22:13: Route: [place] 00 IVP, Drug Form: INJ, Dosing Weight 91.818, kg, PRN, PRN Blood Glucose Results, Start date: 10/05/12 17:13:00, Duration: 30 day, Stop date: 11/04/12 17:12:00 insulin 2012-0 No Estela 3 unit, Memor ia aspart 4-20 Young 0.03 mL, l 22:13: Route: Luke 00 SUB-Q, Drug form: SOLN, TID-Before Meals, Dosing Weight 91.818, kg, PRN Blood Glucose Results, Start date: 10/05/12 17:13:00, Duration: 30 day, Stop date: 11/04/12 17:12:00 glucagon 2012-0 No Estela 1 mg, Memori a 4-20 Young Route: IM, l 22:13: Drug form: Luke 00 PDR/INJ, PRN, Dosing Weight 91.818, kg, [...] date: 11/04/12 17:12:00 insulin 2012-0 No Estela 3 unit, Memor ia aspart 4-20 Young 0.03 mL, l 22:13: Route: [place] 00 SUB-Q, Drug form: SOLN, TID-Before Meals, Dosing Weight 91.818, kg, PRN Blood Glucose Results, Start date: 10/05/12 17:13:00, Duration: 30 day, Stop date: 11/04/12 17:12:00 glucagon 2012-0 No Estela 1 mg, Memori a 4-20 Young Route: IM, l 22:13: Drug form: Luke 00 PDR/INJ, PRN, Dosing Weight 91.818, kg, [...] Duration: 30 day, Stop date: 11/04/12 7:30:00 insulin 2012-0 No Estela 5 unit, Memor ia aspart 4-20 Young 0.05 mL, l 16:30: Route: SUB-Q, Drug form: SOLN, TID-Before Meals, Dosing Weight 91.818, kg, Start date: 10/05/12 11:30:00, Duration: 30 day, Stop date: 11/04/12 7:30:00 insulin 2012-0 No Estela 5 unit, Memor ia aspart 4-20 Young 0.05 mL, l 16:30: Route: [place] 00 SUB-Q, Drug form: SOLN, TID-Before Meals, Dosing Weight 91.818, kg, Start date: 10/05/12 11:30:00, Duration: 30 day, Stop date: 11/04/12 7:30:00 Ativan 2012-0 No Rigoberto 1 mg, 1 Memoria 4-20 Skyler tab, l 15:38: Meiner Route: PO, Anitra nn 00 Drug form: TAB, Bedtime, Dosing Weight 91.818, kg, PRN Insomnia, Start date: 10/05/12 10:38:00, Duration: 30 day, Stop date: 11/04/12 10:37:00 Ativan 2012-0 No Rigoberto 1 mg, 1 Memoria 4-20 Skyler tab, l 15:38: Meiner Route: PO, Anitra nn 00 Drug form: TAB, Bedtime, Dosing Weight 91.818, kg, PRN Insomnia, Start date: 10/05/12 10:38:00, Duration: 30 day, Stop date: 11/04/12 10:37:00 Ativan 2012-0 No Rigoberto 1 mg, 1 Memoria 4-20 Skyler tab, l 15:38: Meiner Route: PO, Anitra nn 00 Drug form: TAB, Bedtime, Dosing Weight 91.818, kg, PRN Insomnia, Start date: 10/05/12 10:38:00, Duration: 30 day, Stop date: 11/04/12 10:37:00 Valium 2013-0 No Dorothy 5 mg, 1 Memori a 4-20 Dionisio tab, l 09:41: Route: PO, Luke 00 Drug form: TAB, ONCE, Dosing Weight 91.818, kg, PRN Anxiety, Start date: 10/05/12 4:41:00, Stop date: 11/04/12 4:40:00 Valium 2013-0 No Dorothy 5 mg, 1 Memori a 4-20 Dionisio tab, l 09:41: Route: PO, [place] 00 Drug form: TAB, ONCE, Dosing Weight 91.818, kg, PRN Anxiety, Start date: 10/05/12 4:41:00, Stop date: 11/04/12 4:40:00 Valium 2013-0 No Dorothy 5 mg, 1 Memori a 4-20 Dionisio tab, l 09:41: Route: PO, [place] 00 Drug form: TAB, ONCE, Dosing Weight 91.818, kg, PRN Anxiety, Start date: 10/05/12 4:41:00, Stop date: 11/04/12 4:40:00 dexamethaso 2012-0 No Dorothy 4 mg, 1 M emoria ne 4-20 Dionisio mL, Route: l 05:00: IVP, Drug [place] 00 form: INJ, Q6H, Dosing Weight 91.818, kg, Start date: 10/05/12 0:00:00, Duration: 30 day, Stop date: 11/03/12 18:00:00 heparin 2012-0 No [place] 5,000 Mem oria 4-20 n Deniz unit, 1 l 05:00: mL, Route: [place] 00 SUB-Q, Drug form: INJ, Q8H, Dosing Weight 91.818, kg, Start date: 10/05/12 0:00:00, Duration: 30 day, Stop date: 11/03/12 16:00:00 dexamethaso 2012-0 No Dorothy 4 mg, 1 M emoria ne 4-20 Dionisio mL, Route: l 05:00: IVP, Drug Luke 00 form: INJ, Q6H, Dosing Weight 91.818, kg, Start date: 10/05/12 0:00:00, Duration: 30 day, Stop date: 11/03/12 18:00:00 heparin 2012-0 No [place] 5,000 Mem oria 4-20 n Deniz unit, 1 l 05:00: mL, Route: [place] 00 SUB-Q, Drug form: INJ, Q8H, Dosing Weight 91.818, kg, Start date: 10/05/12 0:00:00, Duration: 30 day, Stop date: 11/03/12 16:00:00 dexamethaso 2012-0 No Dorothy 4 mg, 1 M emoria ne 4-20 Dionisio mL, Route: l 05:00: IVP, Drug [place] 00 form: INJ, Q6H, Dosing Weight 91.818, kg, Start date: 10/05/12 0:00:00, Duration: 30 day, Stop date: 11/03/12 18:00:00 heparin 2012-0 No [place] 5,000 Mem oria 4-20 n Deniz unit, 1 l 05:00: mL, Route: [place] 00 SUB-Q, Drug form: INJ, Q8H, Dosing Weight 91.818, kg, Start date: 10/05/12 0:00:00, Duration: 30 day, Stop date: 11/03/12 16:00:00 famotidine 2012-0 No Dorothy 20 mg, 1 M emoria 4-20 Dionisio tab, l 02:00: Route: PO, Drug form: TAB, BID, Dosing Weight 91.818, kg, Start date: 10/04/12 21:00:00, Duration: 30 day, Stop date: 11/03/12 9:00:00 famotidine 2012-0 No Dorothy 20 mg, 1 M emoria 4-20 Dionisio tab, l 02:00: Route: PO, Drug form: TAB, BID, Dosing Weight 91.818, kg, Start date: 10/04/12 21:00:00, Duration: 30 day, Stop date: 11/03/12 9:00:00 famotidine 2012-0 No Dorothy 20 mg, 1 M emoria 4-20 Dionisio tab, l 02:00: Route: PO, Drug form: TAB, BID, Dosing Weight 91.818, kg, Start date: 10/04/12 21:00:00, Duration: 30 day, Stop date: 11/03/12 9:00:00 Insulin 2012-0 No Estela 12 unit, Boy tadeo regular 4-20 Young 0.12 mL, l 00:54: Route: Luke 00 SUB-Q, Drug form: SOLN, TID-Before Meals, Dosing Weight 91.818, kg, PRN Blood Glucose Results, Start date: 10/04/12 19:54:00, Duration: 30 day, Stop date: 11/03/12 19:53:00 glucagon 2012-0 No Petra 1 mg, Mem oria 4-20 Carmen Route: IM, l 00:54: Grazyna Drug form: Richard n 00 Law PDR/INJ, PRN, Dosing Weight 91.818, kg, PRN Blood Glucose Results, Start date: 10/04/12 19:54:00, Duration: 30 day, Stop date: 11/03/12 19:53:00 Dextrose 2012-0 No Petra 25 gm, 50 Memoria 50% Syringe 4-20 Carmen mL, Route: l 00:54: Grazyna IVP, Drug Luke 00 Law Form: INJ, Dosing Weight 91.818, kg, PRN, PRN Blood Glucose Results, Start date: 10/04/12 19:54:00, Duration: 30 day, Stop date: 11/03/12 19:53:00 Insulin 2012-0 No Estela 12 unit, Boy tadeo regular 4-20 Young 0.12 mL, l 00:54: Route: Luke 00 SUB-Q, Drug form: SOLN, TID-Before Meals, Dosing Weight 91.818, kg, PRN Blood Glucose Results, Start date: 10/04/12 19:54:00, Duration: 30 day, Stop date: 11/03/12 19:53:00 glucagon 2012-0 No Petra 1 mg, Mem oria 4-20 Carmen Route: IM, l 00:54: Grazyna Drug form: Richard n 00 Law PDR/INJ, PRN, Dosing Weight 91.818, kg, PRN Blood Glucose Results, Start date: 10/04/12 19:54:00, Duration: 30 day, Stop date: 11/03/12 19:53:00 Dextrose 2012-0 No Petra 25 gm, 50 Memoria 50% Syringe 4-20 Carmen mL, Route: l 00:54: Grazyna IVP, Drug [place] 00 Law Form: INJ, Dosing Weight 91.818, kg, PRN, PRN Blood Glucose Results, Start date: 10/04/12 19:54:00, Duration: 30 day, Stop date: 11/03/12 19:53:00 Insulin 2012-0 No Estela 12 unit, Boy tadeo regular 4-20 Young 0.12 mL, l 00:54: Route: Luke 00 SUB-Q, Drug form: SOLN, TID-Before Meals, Dosing Weight 91.818, kg, PRN Blood Glucose Results, Start date: 10/04/12 19:54:00, Duration: 30 day, Stop date: 11/03/12 19:53:00 glucagon 2012-0 No Petra 1 mg, Mem oria 4-20 Carmen Route: IM, l 00:54: Grazyna Drug form: Richard n 00 Law PDR/INJ, PRN, Dosing Weight 91.818, kg, PRN Blood Glucose Results, Start date: 10/04/12 19:54:00, Duration: 30 day, Stop date: 11/03/12 19:53:00 Dextrose 2012-0 No Petra 25 gm, 50 Memoria 50% Syringe 4-20 Carmen mL, Route: l 00:54: Grazyna IVP, Drug Luke 00 Law Form: INJ, Dosing Weight 91.818, kg, PRN, PRN Blood Glucose Results, Start date: 10/04/12 19:54:00, Duration: 30 day, Stop date: 11/03/12 19:53:00 dexamethaso 2012-0 No Dorothy 10 mg, 1 Memoria ne + Sodium 4-20 Dionisio mL, Route: l Chloride 00:14: IVP, Drug Herm robert 0.9% IV 50 00 form: INJ, mL ONCE, Dosing Weight 91.818, kg, Start date: 10/04/12 19:14:00, Stop date: 10/04/12 19:14:00 dexamethaso 2012-0 No Dorothy 10 mg, 1 Memoria ne + Sodium 4-20 Dionisio mL, Route: l Chloride 00:14: IVP, Drug Herm robert 0.9% IV 50 00 form: INJ, mL ONCE, Dosing Weight 91.818, kg, Start date: 10/04/12 19:14:00, Stop date: 10/04/12 19:14:00 dexamethaso 2012-0 No Dorothy 10 mg, 1 Memoria ne [...] doses or times, Stop date: 10/04/12 18:00:00 magnesium 2012-0 No Estela 2 gm, 50 Me moria sulfate 4-19 Young mL, Route: l 21:00: IVPB, Drug Luke 00 form: INJ, Q2H, Dosing Weight 91.818, kg, Total dose = 4 gm, Start date: 10/04/12 16:00:00, Duration: 2 doses or times, Stop date: 10/04/12 18:00:00 magnesium 2012-0 No Estela 2 gm, 50 Me moria sulfate 4-19 Young mL, Route: l 21:00: IVPB, Drug Luke 00 form: INJ, Q2H, Dosing Weight 91.818, kg, Total dose = 4 gm, Start date: 10/04/12 16:00:00, Duration: 2 doses or times, Stop date: 10/04/12 18:00:00 Ativan 0 No Maisha L 1 mg, 0.5 M emoria 4-19 Michael mL, Route: l 16:52: IVP, Drug Luke 00 form: INJ, ONCE, Dosing Weight 91.818, kg, PRN Anxiety, Start date: 10/04/12 11:52:00 acetaminoph 0 No Maisha L 1 tab, Memoria en-hydrocod 4-19 Michael Route: PO, l one 325 16:52: Drug Form: Herm robert mg-10 mg 00 TAB, oral tablet Dosing Weight 91.818, kg, Q4H, PRN Pain Score 4-6, Start date: 10/04/12 11:52:00, Duration: 30 day, Stop date: 11/03/12 11:51:00 Ativan 0 No Maisha L 1 mg, 0.5 M emoria 4-19 Michael mL, Route: l 16:52: IVP, Drug Hingham 00 form: INJ, ONCE, Dosing Weight 91.818, kg, PRN Anxiety, Start date: 10/04/12 11:52:00 acetaminoph 0 No Maisha L 1 tab, Memoria en-hydrocod 4-19 Michael Route: PO, l one 325 16:52: Drug Form: Herm robert mg-10 mg 00 TAB, oral tablet Dosing Weight 91.818, kg, Q4H, PRN Pain Score 4-6, Start date: 10/04/12 11:52:00, Duration: 30 day, Stop date: 11/03/12 11:51:00 Ativan 2012-0 No Maisha L 1 mg, 0.5 M emoria 10-04 Michael mL, Route: l 16:52: IVP, Drug Luke 00 form: INJ, ONCE, Dosing Weight 91.818, [...] Mabry Route: PO, l 14:00: Drug form: [place] 00 TAB, Daily, Dosing Weight 91.818, kg, Start date: 10/04/12 9:00:00, Duration: 30 day, Stop date: 11/02/12 9:00:00 Januvia 2012-0 No [facility] 100 mg, 1 Memoria 4-19 n Deniz tab, l 14:00: Route: PO, [place] 00 Drug form: TAB, Daily, Dosing Weight 91.818, kg, Start date: 10/04/12 9:00:00, Duration: 30 day, Stop date: 11/02/12 9:00:00 amLODipine 2012-0 No [facility] 10 mg, 1 Memoria 4-19 n Deniz tab, l 14:00: Route: PO, Luke 00 Drug form: TAB, Daily, Dosing Weight 91.818, kg, Start date: 10/04/12 9:00:00, Duration: 30 day, Stop date: 11/02/12 9:00:00 Lantus 2012-0 No Estela 30 unit, Memor ia 4-19 Young 0.3 mL, l 14:00: Route: Luke 00 SUB-Q, Drug form: INJ, Daily, Dosing Weight 91.818, kg, Start date: 10/04/12 9:00:00, Stop date: 11/02/12 9:00:00 polyethylen 2012-0 No [facility] 17 gm, 1 Memoria e glycol 4-19 n Deniz pkt, l 3350 14:00: Route: PO, Drug form: PWDR, Daily, Dosing Weight 91.818, kg, Start date: 10/04/12 9:00:00, Duration: 30 day, Stop date: 11/02/12 9:00:00 hydrochloro 2012-0 No Leah Yen 25 mg, M harikariwm thiazide 4-19 Thi Mabry Route: PO, l 14:00: Drug form: TAB, Daily, Dosing Weight 91.818, kg, Start date: 10/04/12 9:00:00, Duration: 30 day, Stop date: 11/02/12 9:00:00 Januvia 2012-0 No [facility] 100 mg, 1 Memoria 4-19 n Deniz tab, l 14:00: Route: PO, Drug form: TAB, Daily, Dosing Weight 91.818, kg, Start date: 10/04/12 9:00:00, Duration: 30 day, Stop date: 11/02/12 9:00:00 amLODipine 2012-0 No [facility] 10 mg, 1 Memoria 4-19 n Deniz tab, l 14:00: Route: PO, Drug form: TAB, Daily, Dosing Weight 91.818, kg, Start date: 10/04/12 9:00:00, Duration: 30 day, Stop date: 11/02/12 9:00:00 Lantus 2012-0 No Estela 30 unit, Memor ia 4-19 Young 0.3 mL, l 14:00: Route: SUB-Q, Drug form: INJ, Daily, Dosing Weight 91.818, kg, Start date: 10/04/12 9:00:00, Stop date: 11/02/12 9:00:00 polyethylen 2012-0 No [facility] 17 gm, 1 Memoria e glycol 4-19 donna Guaman pkt, l 3350 14:00: Route: PO, Drug form: PWDR, Daily, Dosing Weight 91.818, kg, Start date: 10/04/12 9:00:00, Duration: 30 day, Stop date: 11/02/12 9:00:00 hydrochloro 2012-0 No Leah Yen 25 mg, M harikariwm thiazide 4-19 Thi Mabry Route: PO, l 14:00: Drug form: TAB, Daily, Dosing Weight 91.818, kg, Start date: 10/04/12 9:00:00, Duration: 30 day, Stop date: 11/02/12 9:00:00 Januvia 2012-0 No [facility] 100 mg, 1 Memoria 4-19 donna Guaman tab, l 14:00: Route: PO, Drug form: TAB, Daily, Dosing Weight 91.818, kg, Start date: 10/04/12 9:00:00, Duration: 30 day, Stop date: 11/02/12 9:00:00 amLODipine 2012-0 No [facility] 10 mg, 1 Memoria 4-19 donna Guaman tab, l 14:00: Route: PO, Drug form: TAB, Daily, Dosing Weight 91.818, kg, Start date: 10/04/12 9:00:00, Duration: 30 day, Stop date: 11/02/12 9:00:00 Lantus 2012-0 No Estela 30 unit, Memor ia 4-19 Young 0.3 mL, l 14:00: Route: SUB-Q, Drug form: INJ, Daily, Dosing Weight 91.818, kg, Start date: 10/04/12 9:00:00, Stop date: 11/02/12 9:00:00 polyethylen 2012-0 No [facility] 17 gm, 1 Memoria e glycol 4-19 donna Guaman pkt, l 3350 14:00: Route: PO, Drug form: PWDR, Daily, Dosing Weight 91.818, kg, Start date: 10/04/12 9:00:00, Duration: 30 day, Stop date: 11/02/12 9:00:00 Zofran 4 mg Yes [facility] 4 mg, 1 Memoria oral tablet 4-19 n Deniz tab, PO, l 13:02: Q8H, 30 Luke 06 tab, Substituti on Allowed Zofran 4 mg Yes [facility] 4 mg, 1 Memoria oral tablet 4-19 n Deniz tab, PO, l 13:02: Q8H, 30 [place] 06 tab, Substituti on Allowed Zofran 4 mg Yes [facility] 4 mg, 1 Memoria oral tablet 4-19 n Deniz tab, PO, l 13:02: Q8H, 30 Luke 06 tab, Substituti on Allowed docusate Yes [facility] 100 mg, 1 Memoria sodium 100 4-19 n Deniz cap, PO, l mg oral 13:01: Q12H, PRN, Herm robert capsule 38 20 cap, as needed for constipati on, Substituti on Allowed, CAP docusate Yes [facility] 100 mg, 1 Memoria sodium 100 4-19 n Deniz cap, PO, l mg oral 13:01: Q12H, PRN, Herm robert capsule 38 20 cap, as needed for constipati on, Substituti on Allowed, CAP docusate Yes [facility] 100 mg, 1 Memoria sodium 100 4-19 n Deniz cap, PO, l mg oral 13:01: Q12H, PRN, Herm robert capsule 38 20 cap, as needed for constipati on, Substituti on Allowed, CAP tramadol 50 Yes [facility] 1 - 2 tab, Memoria mg oral 4-19 n Deniz PO, Q6H, l tablet 13:00: PRN, 112 Luke 09 tab, Pain, Substituti on Allowed, TAB tramadol 50 Yes [facility] 1 - 2 tab, Memoria mg oral 4-19 n Deniz PO, Q6H, l tablet 13:00: PRN, 112 Luke 09 tab, Pain, Substituti on Allowed, TAB tramadol 50 Yes [facility] 1 - 2 tab, Memoria mg oral 4-19 n Deniz PO, Q6H, l tablet 13:00: PRN, 112 [place] 09 tab, Pain, Substituti on Allowed, TAB cyclobenzap Yes [facility] 10 mg, 1 Memoria rine 10 mg 4-19 n Deniz tab, PO, l oral tablet 13:00: TID, PRN, H ermann 42 tab, Spasm, Substituti on Allowed, TAB cyclobenzap Yes [facility] 10 mg, 1 Memoria rine 10 mg 4-19 n Dneiz tab, PO, l oral tablet 13:00: TID, PRN, H ermann 42 tab, Spasm, Substituti on Allowed, TAB cyclobenzap Yes [facility] 10 mg, 1 Memoria rine 10 mg 4-19 n Deniz tab, PO, l oral tablet 13:00: TID, PRN, H ermann 42 tab, Spasm, Substituti on Allowed, TAB olmesartan Yes [facility] 40 mg, 1 Memoria 40 mg oral 4-19 n Deniz tab, PO, l tablet 12:59: Daily, 30 Richard n 34 tab, Substituti on Allowed, TAB olmesartan Yes [facility] 40 mg, 1 Memoria 40 mg oral 4-19 n Deniz tab, PO, l tablet 12:59: Daily, 30 Richard n 34 tab, Substituti on Allowed, TAB olmesartan Yes [facility] [...] Duration: 30 day, Stop date: 11/03/12 7:56:00 Dilaudid 2012- No [facility] 0.3 mg, Memoria 4-19 n Deniz 0.15 mL, l 12:57: Route: IV, Drug form: INJ, Q3H, Dosing Weight 91.818, kg, PRN Pain Score 7-10, Start date: 10/04/12 7:57:00, Duration: 30 day, Stop date: 11/03/12 7:56:00 Dilaudid 2012-0 No [facility] 0.3 mg, Memoria 4-19 n Deniz 0.15 mL, l 12:57: Route: IV, Drug form: INJ, Q3H, Dosing Weight 91.818, kg, PRN Pain Score 7-10, Start date: 10/04/12 7:57:00, Duration: 30 day, Stop date: 11/03/12 7:56:00 Benadryl 2012-0 No Jui-En 25 mg, 0.5 M emoria 4-19 Edward Kelly mL, Route: l 08:22: IVP, Drug form: INJ, ONCE, Dosing Weight 91.818, kg, PRN Insomnia, Start date: 10/04/12 3:22:00 Benadryl 0 No Jui-En 25 mg, 0.5 M emoria 4-19 Edward Kelly mL, Route: l 08:22: IVP, Drug form: INJ, ONCE, Dosing Weight 91.818, kg, PRN Insomnia, Start date: 10/04/12 3:22:00 Benadryl 2012-0 No Jui-En 25 mg, 0.5 M emoria 4-19 Edward Kelly mL, Route: l 08:22: IVP, Drug form: INJ, ONCE, Dosing Weight 91.818, kg, PRN Insomnia, Start date: 10/04/12 3:22:00 labetalol 0 No Estela 10 mg, 2 Me moria 4-19 Young mL, Route: l 08:05: IVP, Drug form: INJ, Q15Min, Dosing Weight 91.818, kg, PRN Hypertensi on, Start date: 10/04/12 3:05:00, Duration: 30 day, Stop date: 11/03/12 3:04:00 labetalol 2012-0 No Estela 10 mg, 2 Me moria 4-19 Young mL, Route: l 08:05: IVP, Drug [place] 00 form: INJ, Q15Min, Dosing Weight 91.818, kg, PRN Hypertensi on, Start date: 10/04/12 3:05:00, Duration: 30 day, Stop date: 11/03/12 3:04:00 labetalol No Estela 10 mg, 2 Me moria 4-19 Young mL, Route: l 08:05: IVP, Drug Luke 00 form: INJ, Q15Min, Dosing Weight 91.818, kg, PRN Hypertensi on, Start date: 10/04/12 3:05:00, Duration: 30 day, Stop date: 11/03/12 3:04:00 hydrALAZINE No [facility] 10 mg, 0.5 Memoria 4-19 n Deniz mL, Route: l 05:16: IV, Drug Luke 00 form: INJ, Q6H, Dosing Weight 91.818, kg, PRN Elevated BP, Start date: 10/04/12 0:16:00, Duration: 30 day, Stop date: 11/03/12 0:15:00 hydrALAZINE No [facility] 10 mg, 0.5 Memoria 4-19 n Deniz mL, Route: l 05:16: IV, Drug Luke 00 form: INJ, Q6H, Dosing Weight 91.818, kg, PRN Elevated BP, Start date: 10/04/12 0:16:00, Duration: 30 day, Stop date: 11/03/12 0:15:00 hydrALAZINE No [facility] 10 mg, 0.5 Memoria 4-19 n Deniz mL, Route: l 05:16: IV, Drug Luke 00 form: INJ, Q6H, Dosing Weight 91.818, kg, PRN Elevated BP, Start date: 10/04/12 0:16:00, Duration: 30 day, Stop date: 11/03/12 0:15:00 clonidine 2012- No Estela 0.1 mg, 1 M emoria 0.1 mg oral 10-04 Young tab, l tablet 05:00: Route: PO, Anitra nn 00 Drug form: TAB, QID, Dosing Weight 91.818, kg, Start date: 10/04/12 0:00:00, Duration: 30 day, Stop date: 11/02/12 18:00:00 clonidine 2012-0 No Estela 0.1 mg, 1 M emoria 0.1 mg oral 4-19 Young tab, l tablet 05:00: Route: PO, Anitra nn Drug form: TAB, QID, Dosing Weight 91.818, kg, Start date: 10/04/12 0:00:00, Duration: 30 day, Stop date: 11/02/12 18:00:00 clonidine 2012-0 No Estela 0.1 mg, 1 M emoria 0.1 mg oral 4-19 Young tab, l tablet 05:00: Route: PO, Anitra nn 00 Drug form: TAB, QID, Dosing Weight 91.818, [...] 100 mg, 1 Memoria 4-19 n Deniz cap, l 02:00: Route: PO, Luke 00 Drug form: CAP, Q12H, Dosing Weight 91.818, kg, Start date: 10/03/12 21:00:00, Duration: 30 day, Stop date: 11/02/12 9:00:00 senna 2012-0 No [facility] 8.6 mg, 1 M emoria 4-19 donna Deniz tab, l 02:00: Route: PO, Drug Form: TAB, Dosing Weight 91.818, kg, Q12H, Start date: 10/03/12 21:00:00, Duration: 30 day, Stop date: 11/02/12 9:00:00 carvedilol 2012-0 No Estela 12.5 mg, 1 Memoria 4-19 Young tab, l 02:00: Route: PO, Drug form: TAB, Q12H, Dosing Weight 91.818, kg, Start date: 10/03/12 21:00:00, Stop date: 11/02/12 9:00:00 Saline 2012-0 No [facility] 5 ml, Boy tadeo Flush 0.9% -19 donna Guaman Route: l 02:00: IVP, Drug Form: INJ, Dosing Weight 91.818, kg, Q12H, Start date: 10/03/12 21:00:00, Duration: 30 day, Stop date: 11/02/12 9:00:00 docusate 2012-0 No [facility] 100 mg, 1 Memoria 4-19 donna Guaman cap, l 02:00: Route: PO, Drug form: CAP, Q12H, Dosing Weight 91.818, kg, Start date: 10/03/12 21:00:00, Duration: 30 day, Stop date: 11/02/12 9:00:00 senna 2012-0 No [facility] 8.6 mg, 1 M emoria -19 donna Guaman tab, l 02:00: Route: PO, Drug Form: TAB, Dosing Weight 91.818, kg, Q12H, Start date: 10/03/12 21:00:00, Duration: 30 day, Stop date: 11/02/12 9:00:00 carvedilol 2012-0 No Estela 12.5 mg, 1 Memoria 4-19 Young tab, l 02:00: Route: PO, Drug form: TAB, Q12H, Dosing Weight 91.818, kg, Start date: 10/03/12 21:00:00, Stop date: 11/02/12 9:00:00 Saline 2012-0 No [facility] 5 ml, Boy tadeo Flush 0.9% 4-19 donna Guaman Route: l 02:00: IVP, Drug [place] 00 Form: INJ, Dosing Weight 91.818, kg, Q12H, Start date: 10/03/12 21:00:00, Duration: 30 day, Stop date: 11/02/12 9:00:00 docusate 2012-0 No [facility] 100 mg, 1 Memoria 4-19 n Deniz cap, l 02:00: Route: PO, Luke 00 Drug form: CAP, Q12H, Dosing Weight 91.818, kg, Start date: 10/03/12 21:00:00, Duration: 30 day, Stop date: 11/02/12 9:00:00 senna 2012- No [facility] 8.6 mg, 1 M emoria 4-19 n Deniz tab, l 02:00: Route: PO, [place] 00 Drug Form: TAB, Dosing Weight 91.818, kg, Q12H, Start date: 10/03/12 21:00:00, Duration: 30 day, Stop date: 11/02/12 9:00:00 Ancef + No [facility] 2 gm, Mem oria Sodium 4-19 donna Guaman Route: l Chloride 01:00: IVPB, Drug Her kowalski 0.9% IV 100 00 form: mL PDR/INJ, ABXQ8H, Dosing Weight 91.818, kg, Start date: 10/03/12 20:00:00, Duration: 1 day, Stop date: 10/04/12 12:00:00 Ancef + 0 No [facility] 2 gm, Mem oria Sodium 4-19 donna Guaman Route: l Chloride 01:00: IVPB, Drug Her kowalski 0.9% IV 100 00 form: mL PDR/INJ, ABXQ8H, Dosing Weight 91.818, kg, Start date: 10/03/12 20:00:00, Duration: 1 day, Stop date: 10/04/12 12:00:00 Ancef + 0 No [facility] 2 gm, Mem oria Sodium 4-19 donna Guaman Route: l Chloride 01:00: IVPB, Drug Her kowalski 0.9% IV 100 00 form: mL PDR/INJ, ABXQ8H, Dosing Weight 91.818, kg, Start date: 10/03/12 20:00:00, Duration: 1 day, Stop date: 10/04/12 12:00:00 tramadol 2013-0 No Maisha L 50 mg, 1 Memoria 4-18 Michael tab, l 23:56: Route: PO, Drug form: TAB, Q4H, Dosing Weight 91.818, kg, PRN Pain Score 4-6, Start date: 10/03/12 18:56:00, Stop date: 11/02/12 18:55:00 tramadol 2012-0 No Maisha L 50 mg, 1 Memoria 4-18 Michael tab, l 23:56: Route: PO, Drug form: TAB, Q4H, Dosing Weight 91.818, kg, PRN Pain Score 4-6, Start date: 10/03/12 18:56:00, Stop date: 11/02/12 18:55:00 tramadol 2012-0 No Maisha L 50 mg, [...] Duration: 30 day, Stop date: 11/02/12 18:53:00 Flexeril 2013-0 No [facility] 10 mg, 1 Memoria 4-18 n Deniz tab, l 23:54: Route: PO, Drug form: TAB, TID, Dosing Weight 91.818, kg, PRN Spasm, Start date: 10/03/12 18:54:00, Duration: 30 day, Stop date: 11/02/12 18:53:00 Flexeril 2012-0 No [facility] 10 mg, 1 Memoria 4-18 n Deniz tab, l 23:54: Route: PO, Luke 00 Drug form: TAB, TID, Dosing Weight 91.818, kg, PRN Spasm, Start date: 10/03/12 18:54:00, Duration: 30 day, Stop date: 11/02/12 18:53:00 Dextrose 2012-0 No Petra 12.5 gm, Memoria 50% Syringe 4-18 Carmen 25 mL, l 23:18: Grazyna Route: Law IVP, Drug Form: INJ, Dosing Weight 91.818, kg, PRN, PRN Abnormal Lab Result, Start date: 10/03/12 18:18:00, Duration: 30 day, Stop date: 11/02/12 18:17:00 insulin 2012-0 No Petra 5 unit, Me moria regular 100 4-18 Carmen 0.05 mL, l units/mL 23:18: Grazyna Route: Richard n human 00 Law SUB-Q, recombinant Drug form: SOLN, PRN, Dosing Weight 91.818, kg, PRN Abnormal Lab Result, Start date: 10/03/12 18:18:00, Duration: 30 day, Stop date: 11/02/12 18:17:00 Dextrose 2012-0 No Petra 12.5 gm, Memoria 50% Syringe 4-18 Carmen 25 mL, l 23:18: Grazyna Route: Law IVP, Drug Form: INJ, Dosing Weight 91.818, kg, PRN, PRN Abnormal Lab Result, Start date: 10/03/12 18:18:00, Duration: 30 day, Stop date: 11/02/12 18:17:00 insulin 2012-0 No Petra 5 unit, Me moria regular 100 4-18 Carmen 0.05 mL, l units/mL 23:18: Grazyna Route: Richard n human 00 Law SUB-Q, recombinant Drug form: SOLN, PRN, Dosing Weight 91.818, kg, PRN Abnormal Lab Result, Start date: 10/03/12 18:18:00, Duration: 30 day, Stop date: 11/02/12 18:17:00 Dextrose 2012-0 No Petra 12.5 gm, Memoria 50% Syringe 4-18 Carmen 25 mL, l 23:18: Grazyna Route: [place] 00 Law IVP, Drug Form: INJ, Dosing Weight 91.818, kg, PRN, PRN Abnormal Lab Result, Start date: 10/03/12 18:18:00, Duration: 30 day, Stop date: 11/02/12 18:17:00 insulin 2012-0 No Petra 5 unit, Me moria regular 100 4-18 Carmen 0.05 mL, l units/mL 23:18: Grazyna Route: Richard n human 00 Law SUB-Q, recombinant Drug form: SOLN, PRN, Dosing Weight 91.818, kg, PRN Abnormal Lab Result, Start date: 10/03/12 18:18:00, Duration: 30 day, Stop date: 11/02/12 18:17:00 hydrALAZINE 2012-0 No [facility] 20 mg, 1 Memoria 4-18 n Deniz mL, Route: l 23:14: IVP, Drug Luke 00 form: INJ, Q4H, Dosing Weight 91.818, kg, PRN Other -See Comment, Start date: 10/03/12 18:14:00, Duration: 30 day, Stop date: 11/02/12 18:13:00, SBP > 150 mmHg labetalol 2012-0 No [facility] 20 mg, 4 Memoria 4-18 n Deniz mL, Route: l 23:14: IVP, Drug Luke 00 form: INJ, Q15Min, Dosing Weight 91.818, kg, PRN Elevated BP, Start date: 10/03/12 18:14:00, Duration: 3 doses or times, Stop date: 10/04/12 0:00:00, SBP > 150 mmHg hydrALAZINE 2012-0 No [facility] 20 mg, 1 Memoria 4-18 n Deniz mL, Route: l 23:14: IVP, Drug Luke 00 form: INJ, Q4H, Dosing Weight 91.818, kg, PRN Other -See Comment, Start date: 10/03/12 18:14:00, Duration: 30 day, Stop date: 11/02/12 18:13:00, SBP > 150 mmHg labetalol No [facility] 20 mg, 4 Memoria 4-18 n Deniz mL, Route: l 23:14: IVP, Drug Luke 00 form: INJ, Q15Min, Dosing Weight 91.818, kg, PRN Elevated BP, Start date: 10/03/12 18:14:00, Duration: 3 doses or times, Stop date: 10/04/12 0:00:00, SBP > 150 mmHg hydrALAZINE 2012-0 No [facility] 20 mg, 1 Memoria 4-18 n Deniz mL, Route: l 23:14: IVP, Drug Luke 00 form: INJ, Q4H, Dosing Weight 91.818, kg, PRN Other -See Comment, Start date: 10/03/12 18:14:00, Duration: 30 day, Stop date: 11/02/12 18:13:00, SBP > 150 mmHg labetalol No [facility] 20 mg, 4 Memoria 4-18 n Deniz mL, Route: l 23:14: IVP, Drug [place] 00 form: INJ, Q15Min, Dosing Weight 91.818, kg, PRN Elevated BP, Start date: 10/03/12 18:14:00, Duration: 3 doses or times, Stop date: 10/04/12 0:00:00, SBP > 150 mmHg naloxone No [facility] 0.2 mg, Memoria 4-18 n Deniz 0.5 mL, l 23:04: Route: [place] 00 IVP, Drug form: INJ, Q5Min, PRN Narcotic Reversal, Start date: 10/03/12 18:04:00, Duration: 30 day, Stop date: 11/02/12 18:03:00 naloxone 2012-0 No [facility] 0.2 mg, Memoria 4-18 n Deniz 0.5 mL, l 23:04: Route: [place] 00 IVP, Drug form: INJ, Q5Min, PRN Narcotic Reversal, Start date: 10/03/12 18:04:00, Duration: 30 day, Stop date: 11/02/12 18:03:00 naloxone 2012-0 No [facility] 0.2 mg, Memoria 4-18 n Deniz 0.5 mL, l 23:04: Route: Luke 00 IVP, Drug form: INJ, Q5Min, PRN Narcotic Reversal, Start date: 10/03/12 18:04:00, Duration: 30 day, Stop date: 11/02/12 18:03:00 hydrALAZINE 2012-0 No Kahlil 20 mg, Memoria 4-18 Eng Route: l 22:15: IVP, ONCE, Dosing Weight 91.818, kg, Start date: 10/03/12 17:15:00, Stop date: 10/03/12 17:15:00 hydrALAZINE 2012-0 No Kahlil 20 mg, Memoria 4-18 Eng Route: l 22:15: IVP, ONCE, Dosing Weight 91.818, kg, Start date: 10/03/12 17:15:00, Stop date: 10/03/12 17:15:00 hydrALAZINE 2012-0 No Kahlil 20 mg, Memoria 4-18 Eng Route: l 22:15: IVP, ONCE, Dosing Weight 91.818, kg, Start date: 10/03/12 17:15:00, Stop date: 10/03/12 17:15:00 diazepam 2012-0 No [facility] 5 mg, 1 Memoria 4-18 n Deniz tab, l 21:00: Route: PO, Drug form: TAB, Q8H, Dosing Weight 91.818, kg, Start date: 10/03/12 16:00:00, Duration: 30 day, Stop date: 11/02/12 8:00:00 diazepam 2012-0 No [facility] 5 mg, 1 Memoria 4-18 n Deniz tab, l 21:00: Route: PO, Drug form: TAB, Q8H, Dosing Weight 91.818, kg, Start date: 10/03/12 16:00:00, Duration: 30 day, Stop date: 11/02/12 8:00:00 diazepam 2012-0 No [facility] 5 mg, 1 Memoria 4-18 n Deniz tab, l 21:00: Route: PO, Drug form: TAB, Q8H, Dosing Weight 91.818, kg, Start date: 10/03/12 16:00:00, Duration: 30 day, Stop date: 11/02/12 8:00:00 ondansetron 2012-0 No Kahlil 4 mg, 2 Memoria 4-18 Eng mL, Route: l 20:54: IVP, Drug form: INJ, ONCE, Dosing Weight 91.818, kg, PRN Nausea & Vomiting, Start date: 10/03/12 15:54:00 promethazin 2012- No Kahlil 6.25 mg, Memoria e 4-18 Eng 0.25 mL, l 20:54: Route: Luke 00 IVPB, Drug form: INJ, ONCE, Dosing Weight 91.818, kg, PRN Nausea & Vomiting, Start date: 10/03/12 15:54:00 flumazenil 2012- No Kahlil 0.2 mg, 2 Memoria 4-18 Eng mL, Route: l 20:54: IVP, Drug form: INJ, PRN, Dosing Weight 91.818, kg, PRN Benzodiaze pine Reversal, Initial dose, Start date: 10/03/12 15:54:00, Duration: 1 day, Stop date: 10/04/12 15:53:00 naloxone 2012- No Kahlil 0.04 mg, M emoria 4-18 Eng 0.1 mL, l 20:54: Route: IVP, Drug form: INJ, Q2MIN, Dosing Weight 91.818, kg, PRN Narcotic Reversal, Start date: 10/03/12 15:54:00, Duration: 8 doses or times, Stop date: 10/04/12 0:00:00 fentanyl 2012-0 No Thelma Jaron 25 Mem oria 4-18 Maisha microgram, l 20:54: 0.5 mL, Route: IVP, Drug form: INJ, Q5Min, Dosing Weight 91.818, kg, PRN Pain Score 4-6, Start date: 10/03/12 15:54:00, Duration: 4 doses or times, Stop date: 10/04/12 0:00:00 labetalol 2012- No Kahlil 5 mg, 1 M emoria 4-18 Eng mL, Route: l 20:54: IVP, Drug form: INJ, Q5Min, Dosing Weight 91.818, kg, PRN Elevated BP, Start date: 10/03/12 15:54:00, Duration: 5 doses or times, Stop date: 10/04/12 0:00:00 ondansetron No Kahlil 4 mg, 2 Memoria [...] 4-18 Eng 0.1 mL, l 20:54: Route: IVP, Drug form: INJ, Q2MIN, Dosing Weight 91.818, kg, PRN Narcotic Reversal, Start date: 10/03/12 15:54:00, Duration: 8 doses or times, Stop date: 10/04/12 0:00:00 fentanyl 2012- No Thelma Jaron 25 Mem oria 4-18 Amisha microgram, l 20:54: 0.5 mL, Route: IVP, [...] doses or times, Stop date: 10/04/12 0:00:00 ondansetron No Kahlil 4 mg, 2 Memoria [...] 4-18 Eng 0.1 mL, l 20:54: Route: IVP, Drug form: INJ, Q2MIN, Dosing Weight 91.818, kg, PRN Narcotic Reversal, Start date: 10/03/12 15:54:00, Duration: 8 doses or times, Stop date: 10/04/12 0:00:00 fentanyl 2012- No Thelma Jaron 25 Mem oria 4-18 Maisha microgram, l 20:54: 0.5 mL, Route: IVP, Drug form: INJ, Q5Min, Dosing Weight 91.818, kg, PRN Pain Score 4-6, Start date: 10/03/12 15:54:00, Duration: 4 doses or times, Stop date: 10/04/12 0:00:00 labetalol 2012- No Kahlil 5 mg, 1 M emoria 4-18 Eng mL, Route: l 20:54: IVP, Drug [place] 00 form: INJ, Q5Min, Dosing Weight 91.818, kg, PRN Elevated BP, Start date: 10/03/12 15:54:00, Duration: 5 doses or times, Stop date: 10/04/12 0:00:00 HYDROmorpho 2012- No [facility] 15 mg, 30 Memoria ne 0.5mg/mL 4-18 n Deniz mL, Route: l ANALYTICS LEADER 17:00: IV, ANALYTICS LEADER [place] (15mg/30 00 Dose: 0.3 mL) 15 mg mg, ANALYTICS LEADER Lockout: 15 minutes, 4 Hour Limit (In MG): 4.8, Drug Form: INJ, Continuous , Start date: 10/03/12 12:00:00, Stop date: 11/02/12 11:59:00 HYDROmorpho No [facility] 15 mg, 30 Memoria ne 0.5mg/mL 4-18 n Deniz mL, Route: l ANALYTICS LEADER 17:00: IV, ANALYTICS LEADER [place] (15mg/30 00 Dose: 0.3 mL) 15 mg mg, ANALYTICS LEADER Lockout: 15 minutes, 4 Hour Limit (In MG): 4.8, Drug Form: INJ, Continuous , Start date: 10/03/12 12:00:00, Stop date: 11/02/12 11:59:00 HYDROmorpho No [facility] 15 mg, 30 Memoria ne 0.5mg/mL 4-18 n Deniz mL, Route: l ANALYTICS LEADER 17:00: IV, ANALYTICS LEADER Luke (15mg/30 00 Dose: 0.3 mL) 15 mg mg, ANALYTICS LEADER Lockout: 15 minutes, 4 Hour Limit (In MG): 4.8, Drug Form: INJ, Continuous , Start date: 10/03/12 12:00:00, Stop date: 11/02/12 11:59:00 Saline 2012-0 No [facility] 5 ml, Boy tadeo Flush 0.9% 4-18 n Deniz Route: l 16:42: IVP, Drug Luke 00 Form: INJ, Dosing Weight 91.818, kg, PRN, PRN Line Flush, Start date: 10/03/12 11:42:00, Duration: 30 day, Stop date: 11/02/12 11:41:00 ondansetron 2012- No [facility] 4 mg, 2 Memoria 4-18 n Deniz mL, Route: l 16:42: IVP, Drug Luke 00 form: INJ, Q8H, Dosing Weight 91.818, [...] acetaminoph No [facility] 1 tab, Memoria en-hydrocod 4-18 n Deniz Route: PO, l one 325 16:42: Drug Form: Herm robert mg-10 mg 00 TAB, oral tablet Dosing Weight 91.818, kg, Q4H, PRN Pain Score 4-6, Start date: 10/03/12 11:42:00, Duration: 30 day, Stop date: 11/02/12 11:41:00 Saline 2012- No [facility] 5 ml, Boy tadeo Flush 0.9% 4-18 n Deniz Route: l 16:42: IVP, Drug Luke 00 Form: INJ, Dosing Weight 91.818, kg, PRN, PRN Line Flush, Start date: 10/03/12 11:42:00, Duration: 30 day, Stop date: 11/02/12 11:41:00 ondansetron No [facility] 4 mg, 2 Memoria 4-18 n Deniz mL, Route: l 16:42: IVP, Drug [place] 00 form: INJ, Q8H, Dosing Weight 91.818, kg, PRN Nausea & Vomiting, Start date: 10/03/12 11:42:00, Duration: 30 day, Stop date: 11/02/12 11:41:00 acetaminoph No [facility] 650 mg, Memoria en 4-18 n Deniz 20.3 mL, l 16:42: Route: PO, [place] 00 Drug form: LIQ, Q4H, Dosing Weight 91.818, kg, PRN Pain 1-3/Temp > 99.5 F, Start date: 10/03/12 11:42:00, Duration: 30 day, Stop date: 11/02/12 11:41:00 acetaminoph No [facility] 1 tab, Memoria en-hydrocod 4-18 n Deniz Route: PO, l one 325 16:42: Drug Form: Herm robert mg-10 mg 00 TAB, oral tablet Dosing Weight 91.818, kg, Q4H, PRN Pain Score 4-6, Start date: 10/03/12 11:42:00, Duration: 30 day, Stop date: 11/02/12 11:41:00 Saline No [facility] 5 ml, Boy tadeo Flush 0.9% 4-18 n Deniz Route: l 16:42: IVP, Drug Form: INJ, [...] Deniz 20.3 mL, l 16:42: Route: PO, [place] 00 Drug form: LIQ, Q4H, Dosing Weight 91.818, kg, PRN Pain 1-3/Temp > 99.5 F, Start date: 10/03/12 11:42:00, Duration: 30 day, Stop date: 11/02/12 11:41:00 acetaminoph 2012- No Kathryn 1 tab, Memoria en-hydrocod 4-18 n Deniz Route: PO, l one 325 16:42: Drug Form: Herm robert mg-10 mg 00 TAB, oral tablet Dosing Weight 91.818, kg, Q4H, PRN Pain Score 4-6, Start date: 10/03/12 11:42:00, Duration: 30 day, Stop date: 11/02/12 11:41:00 amLODipine Yes Substituti M emoria 4-18 on Allowed l 15:03: [place] amLODipine Yes Substituti M emoria 4-18 on Allowed l 15:03: Luke amLODipine Yes Substituti M emoria 4-18 on Allowed l 15:03: Luke NS + KCL No Keron 1,000 mL, M emoria 20mEq/L 4-18 Gabbie Rate: 70 l 1000ml 10:00: William ml/hr, Richard n (Premix) 00 Infuse 1,000 mL over: 14.3 hr, Route: IV, kg, Total Volume: 1,000, Start date: 10/03/12 5:00:00, Duration: 1 day, Stop date: 10/04/12 4:59:00 cefazolin No Keron 2 gm, 100 Memoria 4-18 Gabbie mL, Route: l 10:00: William IVPB, Drug Herm robert 00 form: INJ, PRE OP, Start date: 10/03/12 5:00:00, Duration: 1 day, Stop date: 10/04/12 4:59:00 NS + KCL No Keron 1,000 mL, M emoria 20mEq/L 4-18 Gabbie Rate: 70 l 1000ml 10:00: William ml/hr, Richard n (Premix) 00 Infuse 1,000 mL over: 14.3 hr, Route: IV, kg, Total Volume: 1,000, Start date: 10/03/12 5:00:00, Duration: 1 day, Stop date: 10/04/12 4:59:00 cefazolin No Keron 2 gm, 100 Memoria 4-18 Gabbie mL, Route: l 10:00: William IVPB, Drug Herm robert 00 form: INJ, PRE OP, Start date: 10/03/12 5:00:00, Duration: 1 day, Stop date: 10/04/12 4:59:00 NS + KCL No Keron 1,000 mL, M emoria 20mEq/L 18 Gabbie Rate: 70 l 1000ml 10:00: William ml/hr, Richard n (Premix) 00 Infuse 1,000 mL over: 14.3 hr, Route: IV, kg, Total Volume: 1,000, Start date: 10/03/12 5:00:00, Duration: 1 day, Stop date: 10/04/12 4:59:00 cefazolin No Keron 2 gm, 100 Memoria 4-18 Gabbie mL, Route: l 10:00: William IVPB, Drug Herm robert 00 form: INJ, PRE OP, Start date: 10/03/12 5:00:00, Duration: 1 day, Stop date: 10/04/12 4:59:00 Vicodin HP Yes PO, PRN, Mem oria 10 mg-300 4-16 Substituti l mg oral 21:32: on [place] tablet 18 Allowed, Maintenanc e Vicodin HP Yes PO, PRN, Mem oria 10 mg-300 4-16 Substituti l mg oral 21:32: on Luke tablet 18 Allowed, Maintenanc e Vicodin HP Yes PO, PRN, Mem oria 10 mg-300 4-16 Substituti l mg oral 21:32: on Luke tablet 18 Allowed, Maintenanc e Dulcolax Yes 1 supp, Memori a Laxative 4-16 CO, Daily, l 21:32: PRN, 5 Luke 02 supp, constipati on, Substituti on Allowed, SUPP Dulcolax Yes 1 supp, Memori a Laxative 4-16 CO, Daily, l 21:32: PRN, 5 Luke 02 supp, constipati on, Substituti on Allowed, SUPP Dulcolax Yes 1 supp, Memori a Laxative 4-16 CO, Daily, l 21:32: PRN, 5 Luke supp, constipati on, Substituti on Allowed, SUPP clonidine Yes [facility] PO, QID, Memoria 0.1 mg oral 4-16 n Deniz prn l tablet 21:31: bp>160, [place] 30 Substituti on [id number] clonidine Yes [facility] PO, QID, Memoria 0.1 mg oral 4-16 n Deniz prn l tablet 21:31: bp>160, Luke 30 Substituti on [id number] clonidine Yes [facility] PO, QID, Memoria 0.1 mg oral 4-16 n Deniz prn l tablet 21:31: bp>160, Luke 30 Substituti on [id number] Benicar HCT Yes 1 tab, PO, Memoria 12.5 mg-40 4-16 Daily, 30 l mg oral 21:30: tab, Luke tablet 43 Substituti on Allowed, Maintenanc e, TAB Benicar HCT Yes 1 tab, PO, Memoria 12.5 mg-40 4-16 Daily, 30 l mg oral 21:30: tab, [place] tablet 43 Substituti on Allowed, Maintenanc e, TAB Benicar HCT Yes 1 tab, PO, Memoria 12.5 mg-40 4-16 Daily, 30 l mg oral 21:30: tab, [place] tablet 43 Substituti on Allowed, Maintenanc e, TAB carvedilol Yes [facility] 25 mg, 1 Memoria 25 mg oral 4-16 n Deniz tab, PO, l tablet 21:30: Q12H, 60 Luke 29 tab, Substituti on Allowed, TAB carvedilol Yes [facility] 25 mg, 1 Memoria 25 mg oral 4-16 n Deniz tab, PO, l tablet 21:30: Q12H, 60 Luke 29 tab, Substituti on Allowed, TAB carvedilol Yes [facility] 25 mg, 1 Memoria 25 mg oral 4-16 n Deniz tab, PO, l tablet 21:30: Q12H, 60 [place] 29 tab, Substituti on Allowed, TAB Januvia 100 2012-0 Yes [facility] 100 mg, 1 Memoria mg oral 4-16 n Deniz tab, PO, l tablet 21:30: Daily, 30 Richard n 10 tab, Substituti on Allowed, TAB Januvia 100 2012-0 Yes [facility] 100 mg, 1 Memoria mg oral 4-16 n Deniz tab, PO, l tablet 21:30: Daily, 30 [place] n 10 tab, Substituti on Allowed, TAB Januvia 100 Yes [facility] 100 mg, 1 Memoria mg oral 4-16 n Deniz tab, PO, l tablet 21:30: Daily, 30 Richard n 10 tab, Substituti on Allowed, TAB Lantus 2012-0 Yes 22 unit, Memoria 4-16 SUB-Q, l 21:29: Bedtime, Luke 53 Substituti on Allowed Lantus 2012-0 Yes 22 unit, Memoria 4-16 SUB-Q, l 21:29: Bedtime, Luke 53 Substituti on Allowed Lantus 2013-0 Yes 22 unit, Memoria 4-16 SUB-Q, l 21:29: Bedtime, Luke 53 Substituti on Allowed glimepiride 2012-0 Yes 8 mg, 2 Mem oria 4 mg oral 4-16 tab, PO, l tablet 21:29: Daily, Luke 45 Substituti on Allowed glimepiride 2012-0 Yes 8 mg, 2 Mem oria 4 mg oral 4-16 tab, PO, l tablet 21:29: Daily, Luke 45 Substituti on Allowed glimepiride 2012-0 Yes 8 mg, 2 Mem oria 4 mg oral 4-16 tab, PO, l tablet 21:29: Daily, Luke 45 Substituti on Allowed glimepiride glimepiride 2010-06 No glimepirid [facility] 4 mg tablet 4 mg tablet 0-25 e 4 mg [facility] RX by other RX by other 00:00: tablet RX dic MD WARD 00 by other Sports MD Aquino e glimepiride glimepiride 2010-06 No glimepirid [facility] 4 mg tablet 4 mg tablet 0-25 e 4 mg [facility] RX by other RX by other 00:00: tablet RX dic MD WARD 00 by other Sports MD Miles pennington glimepiride glimepiride 2010-06 No glimepirid [facility] 4 mg tablet 4 mg tablet 0-25 e 4 mg [facility] RX by other RX by other 00:00: tablet RX dic MD WARD 00 by other Sports MD Miles pennington glimepiride glimepiride 2010-06 No glimepirid Arlin 4 mg tablet 4 mg tablet 0-25 e 4 mg [facility] RX by other RX by other 00:00: tablet RX dic MD WARD 00 by other Sports MD Miles pennington Crestor 10 Crestor 10 No Crestor 10 Arlin mg tablet mg tablet mg tablet [facility] RX by other RX by other RX by cesar Skinner DulcoEase DulcoEase No DulcoEase Arlin 100 mg 100 mg 100 mg [facility] capsule RX capsule RX capsule RX dic by other MD by other MD by other Sports MD Miles pennington ezetimibe ezetimibe No ezetimibe [facility] 10 mg 10 mg 10 mg [facility] tablet TAKE tablet TAKE tablet dic 1 TABLET BY 1 TABLET BY TAKE 1 Sports MOUTH EVERY MOUTH EVERY TABLET BY Medicin DAY DAY MOUTH e EVERY DAY fluconazole fluconazole No fluconazol Arlin 150 mg 150 mg e 150 mg [facility] tablet 1 tablet 1 tablet 1 dic TABLET TABLET TABLET Sports ORALLY NOW, ORALLY NOW, ORALLY Medicin THEN AGAIN THEN AGAIN NOW, THEN e IN 72 HOURS IN 72 HOURS AGAIN IN 4 DAY(S) 4 DAY(S) 72 HOURS 4 DAY(S) furosemide furosemide No furosemide [facility] 20 mg 20 mg 20 mg [facility] tablet TAKE tablet TAKE tablet dic 1 TABLET BY 1 TABLET BY TAKE 1 Sports MOUTH EVERY MOUTH EVERY TABLET BY Medicin DAY DAY MOUTH e EVERY DAY gabapentin gabapentin No gabapentin [facility] 300 mg 300 mg 300 mg [facility] capsule capsule capsule dic TAKE 1 TAKE 1 TAKE 1 Sports CAPSULE BY CAPSULE BY CAPSULE BY Medicin MOUTH THREE MOUTH THREE MOUTH e TIMES A DAY TIMES A DAY THREE TIMES A DAY hydralazine hydralazine No hydralazin [facility] 25 mg 25 mg e 25 mg [facility] tablet TAKE tablet TAKE tablet dic 1 TABLET BY 1 TABLET BY TAKE 1 Sports MOUTH TWICE MOUTH TWICE TABLET BY Medicin A DAY A DAY MOUTH e TWICE A DAY hydrocodone hydrocodone No hydrocodon Ar[facility] 5 5 e 5 [facility] mg-acetamin mg-acetamin mg-acetami dic ophen 325 ophen 325 nophen 325 Sports mg tablet mg tablet mg tablet Medicin TAKE 1 TAKE 1 TAKE 1 e TABLET BY TABLET BY TABLET BY MOUTH EVERY MOUTH EVERY MOUTH 6 HOURS 6 HOURS EVERY 6 NEEDED NEEDED HOURS NEEDED ID NOW ID NOW No ID NOW Arlin COVID-19 COVID-19 COVID-19 Ort hope Test Kit Test Kit Test Kit dic TEST TEST TEST Sports DIRECTED DIRECTED DIRECTED Med icin TODAY TODAY TODAY e irbesartan irbesartan No irbesartan [facility] 300 mg 300 mg 300 mg [facility] tablet RX tablet RX tablet RX dic by other MD by other MD by other Sports MD Medicin e Hasmukh Noe No Hasmukh Arlin XR 5 XR 5 XR 5 [facility] mg-1,000 mg mg-1,000 mg mg-1,000 dic tablet, tablet, mg tablet, Spo rts extended extended extended Med icin release release release e TAKE 1 TAKE 1 TAKE 1 TABLET BY TABLET BY TABLET BY MOUTH EVERY MOUTH EVERY MOUTH DAY IN THE DAY IN THE EVERY DAY MORNING MORNING IN THE MORNING Livalo 4 mg Livalo 4 mg No Livalo 4 Arlin tablet TAKE tablet TAKE mg tablet [facility] 1 TABLET BY 1 TABLET BY TAKE 1 dic MOUTH MOUTH TABLET BY Sports EVERYDAY AT EVERYDAY AT MOUTH Medicin BEDTIME BEDTIME EVERYDAY e AT BEDTIME metformin metformin No metformin Arlin ER 500 mg ER 500 mg ER 500 mg [facility] tablet,exte tablet,exte tablet,ext dic nded nded ended Sports release 24 release 24 release 24 Medicin hr TAKE 1 hr TAKE 1 hr TAKE 1 e TABLET BY TABLET BY TABLET BY MOUTH EVERY MOUTH EVERY MOUTH DAY IN THE DAY IN THE EVERY DAY EVENING EVENING IN THE WITH DINNER WITH DINNER EVENING WITH DINNER nifedipine nifedipine No nifedipine [facility] ER 30 mg ER 30 mg ER 30 mg [facility] hope tablet,exte tablet,exte tablet,ext dic nded nded ended Sports release release release Medici n TAKE 1 TAKE 1 TAKE 1 e TABLET BY TABLET BY TABLET BY MOUTH EVERY MOUTH EVERY MOUTH DAY DAY EVERY DAY nifedipine nifedipine No nifedipine [facility] ER 30 mg ER 30 mg ER 30 mg Ort hope tablet,exte tablet,exte tablet,ext dic nded nded ended Sports release 24 release 24 release 24 Medicin hr TAKE 1 hr TAKE 1 hr TAKE 1 e TABLET BY TABLET BY TABLET BY MOUTH EVERY MOUTH EVERY MOUTH DAY DAY EVERY DAY Novolog Novolog No Novolog [facility] Flexpen Flexpen Flexpen [facility] e U-100 U-100 U-100 dic Insulin Insulin Insulin Sports aspart 100 aspart 100 aspart 100 Medicin unit/mL (3 unit/mL (3 unit/mL (3 e mL) mL) mL) subcutaneou subcutaneou subcutaneo s INJECT s INJECT us INJECT BEFORE BEFORE BEFORE MEALS FOR MEALS FOR MEALS FOR GLUCOSE GLUCOSE GLUCOSE >200 USING >200 USING >200 USING CF 1:30 TDD CF 1:30 TDD CF 1:30 50 50 TDD 50 nystatin-tr nystatin-tr No nystatin-t [facility] iamcinolone iamcinolone riamcinolo [facility] 100,000 100,000 ne 100,000 dic unit/g-0.1 unit/g-0.1 unit/g-0.1 Sports % topical % topical % topical Medicin cream APPLY cream APPLY cream e 1 1 APPLY 1 APPLICATION APPLICATION APPLICATIO TO AFFECTED TO AFFECTED N TO AREA AREA AFFECTED EXTERNALLY EXTERNALLY AREA TWICE A DAY TWICE A DAY EXTERNALLY FOR 30 DAYS FOR 30 DAYS TWICE A DAY FOR 30 DAYS Ozempic Ozempic No Ozempic Arlin 0.25 mg or 0.25 mg or 0.25 mg or [facility] 0.5 mg (2 0.5 mg (2 0.5 mg (2 dic mg/1.5 mL) mg/1.5 mL) mg/1.5 mL) Sports subcutaneou subcutaneou subcutaneo Medicin s pen s pen us pen e injector injector injector INJECT 0.5 INJECT 0.5 INJECT 0.5 MG MG MG SUBCUTANEOU SUBCUTANEOU SUBCUTANEO SLY EVERY SLY EVERY USLY EVERY WEEK FOR 30 WEEK FOR 30 WEEK FOR DAYS. DAYS. 30 DAYS. Premarin Premarin No Premarin Aza maritza 0.625 0.625 0.625 [facility] mg/gram mg/gram mg/gram dic vaginal vaginal vaginal Sports cream cream cream Medicin INSERT 0.5 INSERT 0.5 INSERT 0.5 e GM GM GM DIRECTED DIRECTED DIRECTED WITH WITH WITH APPLICATOR APPLICATOR APPLICATOR VAGINALLY VAGINALLY VAGINALLY THREE TIMES THREE TIMES THREE A WEEK FOR A WEEK FOR TIMES A 30 DAYS 30 DAYS WEEK FOR 30 DAYS Restasis Restasis No Restasis Aza maritza 0.05 % eye 0.05 % eye 0.05 % eye [facility] drops in a drops in a drops in a dic dropperette dropperette dropperett Sports INSTILL 1 INSTILL 1 e INSTILL Medicin DROP INTO DROP INTO 1 DROP e BOTH EYES BOTH EYES INTO BOTH TWICE A DAY TWICE A DAY EYES TWICE A DAY Soliqua Soliqua No Soliqua [facility] 100/33 100 100/33 100 100/33 100 [facility] unit-33 unit-33 unit-33 dic mcg/mL mcg/mL mcg/mL Sports subcutaneou subcutaneou subcutaneo Medicin s insulin s insulin us insulin e pen INJECT pen INJECT pen INJECT 36 UNITS 36 UNITS 36 UNITS SUBCUTANEOU SUBCUTANEOU SUBCUTANEO SLY IN THE SLY IN THE USLY IN MORNING MORNING THE INCREASE INCREASE MORNING DIRECTED DIRECTED INCREASE DIRECTED Tradjenta 5 Tradjenta 5 No Tradjenta Arlin mg tablet mg tablet 5 mg Ortho pe RX by other RX by other tablet RX dic MD MD by other Sports MD Medicin e Tresiba Tresiba No Tresiba [facility] FlexTouch FlexTouch FlexTouch [facility] U-200 U-200 U-200 dic insulin 200 insulin 200 insulin Sports unit/mL (3 unit/mL (3 200 Med icin mL) mL) unit/mL (3 e subcutaneou subcutaneou mL) s pen s pen subcutaneo INJECT 34 INJECT 34 us pen UNITS UNITS INJECT 34 SUBCUTANEOU SUBCUTANEOU UNITS SLY EVERY SLY EVERY SUBCUTANEO MORNING AND MORNING AND USLY EVERY INCREASE INCREASE MORNING DIRECTED DIRECTED AND *TOTAL *TOTAL INCREASE DAILY DOSE DAILY DOSE 50 UNITS* 50 UNITS* DIRECTED *TOTAL DAILY DOSE 50 UNITS* Trulicity 3 Trulicity 3 No Trulicity Arlin mg/0.5 mL mg/0.5 mL 3 mg/0.5 O [facility]ope subcutaneou subcutaneou mL d ic s pen s pen subcutaneo Sports injector injector us pen Medic in INJECT 3 MG INJECT 3 MG injector e (ONE PEN) (ONE PEN) INJECT 3 EVERY WEEK EVERY WEEK MG (ONE BY BY PEN) EVERY SUBCUTANEOU SUBCUTANEOU WEEK BY S ROUTE S ROUTE SUBCUTANEO DIRECTED DIRECTED US ROUTE FOR 90 FOR 90 DAYS. DAYS. DIRECTED FOR 90 DAYS. valsartan valsartan No valsartan [facility] 320 mg 320 mg 320 mg [facility] tablet TAKE tablet TAKE tablet dic 1 TABLET BY 1 TABLET BY TAKE 1 Sports MOUTH EVERY MOUTH EVERY TABLET BY Medicin DAY DAY MOUTH e EVERY DAY Accu-Chek Accu-Chek No Accu-Chek Arlin Fior Plus Fior Plus Fior Plus [facility] test strips test strips test d ic TEST 3 TEST 3 strips Sports TIMES A DAY TIMES A DAY TEST 3 Medicin DIRECTED DIRECTED TIMES A e DAY DIRECTED acetaminoph acetaminoph No 1 Q6H acetaminop Arlin en 300 en 300 hen 300 [facility] mg-codeine mg-codeine mg-codeine dic 60 mg 60 mg 60 mg Sports tablet Take tablet Take tablet Medicin 1 tablet 1 tablet Take 1 e every 6 every 6 tablet hours by hours by every 6 oral route oral route hours by as needed. as needed. oral route as needed. acyclovir acyclovir No acyclovir [facility] 800 mg 800 mg 800 mg [facility] tablet TAKE tablet TAKE tablet dic 1 TABLET BY 1 TABLET BY TAKE 1 Sports MOUTH TWICE MOUTH TWICE TABLET BY Medicin A DAY A DAY MOUTH e TWICE A DAY alprazolam alprazolam No alprazolam [facility]lin 0.25 mg 0.25 mg 0.25 mg Orth[facility] e tablet TAKE tablet TAKE tablet dic 1 TO 2 1 TO 2 TAKE 1 TO Sports TABLETS BY TABLETS BY 2 TABLETS Medicin MOUTH PRIOR MOUTH PRIOR BY MOUTH e TO CT TO CT PRIOR TO SCAN/PET SCAN/PET CT SCAN SCAN SCAN/PET SCAN amlodipine amlodipine No amlodipine [facility] 10 mg 10 mg 10 mg [facility] tablet RX tablet RX tablet RX dic by other MD by other MD by other Sports MD Medicin e amoxicillin amoxicillin No amoxicilli Ar[facility] 500 mg 500 mg n 500 mg [facility] capsule capsule capsule dic TAKE 4 TAKE 4 TAKE 4 Sports CAPSULES BY CAPSULES BY CAPSULES Medicin MOUTH I MOUTH I BY MOUTH I e HOUR PRIOR HOUR PRIOR HOUR PRIOR TO DENTAL TO DENTAL TO DENTAL APPOINTMENT APPOINTMENT APPOINTMEN T BD Shaina 2nd BD Shaina 2nd No BD Shaina Arlin Gen Pen Gen Pen 2nd Gen [facility] e Needle 32 Needle 32 Pen Needle dic gauge x gauge x 32 gauge x Spo rts " USE " USE " USE Medicin DIRECTED DIRECTED e ONCE DAILY ONCE DAILY DIRECTED ONCE DAILY carvedilol carvedilol No carvedilol [facility] 12.5 mg 12.5 mg 12.5 mg Orth[facility] e tablet TAKE tablet TAKE tablet dic 1 TABLET BY 1 TABLET BY TAKE 1 Sports MOUTH TWICE MOUTH TWICE TABLET BY Medicin A DAY A DAY MOUTH e TWICE A DAY carvedilol carvedilol No carvedilol [facility] 25 mg 25 mg 25 mg [facility] tablet TAKE tablet TAKE tablet dic 1 TABLET BY 1 TABLET BY TAKE 1 Sports MOUTH TWICE MOUTH TWICE TABLET BY Medicin A DAY A DAY MOUTH e TWICE A DAY cinacalcet cinacalcet No cinacalcet Ar[facility] 30 mg 30 mg 30 mg [facility] tablet TAKE tablet TAKE tablet dic 1 TABLET BY 1 TABLET BY TAKE 1 Sports MOUTH TWICE MOUTH TWICE TABLET BY Medicin A DAY A DAY MOUTH e TWICE A DAY clonidine clonidine No clonidine [facility] HCl 0.1 mg HCl 0.1 mg HCl 0.1 mg [facility] tablet 1/2 tablet 1/2 tablet 1/2 dic TAB THREE TAB THREE TAB THREE Sports TIMES DAILY TIMES DAILY TIMES Medicin DAILY e Co Q-10 Co Q-10 No Co Q-10 Arlin (with Vit (with Vit (with Vit [facility] E) 100 mg-5 E) 100 mg-5 E) 100 dic unit unit mg-5 unit Sports capsule RX capsule RX capsule RX Medicin by other MD by other MD by other e Crestor 10 Crestor 10 No Crestor 10 Arlin mg tablet mg tablet mg tablet [facility] RX by other RX by other RX by dic MD MD kathy Muir Medicin e DulcoEase DulcoEase No DulcoEase Arlin 100 mg 100 mg 100 mg [facility] capsule RX capsule RX capsule RX dic by other MD by other MD by other Sports Medicin e ezetimibe ezetimibe No ezetimibe [facility] 10 mg 10 mg 10 mg [facility] tablet TAKE tablet TAKE tablet dic 1 TABLET BY 1 TABLET BY TAKE 1 Sports MOUTH EVERY MOUTH EVERY TABLET BY Medicin DAY DAY MOUTH e EVERY DAY furosemide furosemide No furosemide [facility] 20 mg 20 mg 20 mg [facility] tablet TAKE tablet TAKE tablet dic 1 TABLET BY 1 TABLET BY TAKE 1 Sports MOUTH EVERY MOUTH EVERY TABLET BY Medicin DAY DAY MOUTH e EVERY DAY gabapentin gabapentin No gabapentin [facility] 300 mg 300 mg 300 mg [facility] capsule capsule capsule dic TAKE 1 TAKE 1 TAKE 1 Sports CAPSULE BY CAPSULE BY CAPSULE BY Medicin MOUTH THREE MOUTH THREE MOUTH e TIMES A DAY TIMES A DAY THREE TIMES A DAY irbesartan irbesartan No irbesartan [facility] 300 mg 300 mg 300 mg [facility] tablet RX tablet RX tablet RX dic by other MD by other MD by other Sports MD Medicin e Hasmukh Noe No Hasmukh [facility] XR 5 XR 5 XR 5 [facility] mg-1,000 mg mg-1,000 mg mg-1,000 dic tablet, tablet, mg tablet, Spo rts extended extended extended Med icin release release release e TAKE 1 TAKE 1 TAKE 1 TABLET BY TABLET BY TABLET BY MOUTH EVERY MOUTH EVERY MOUTH DAY IN THE DAY IN THE EVERY DAY MORNING MORNING IN THE MORNING Livalo 4 mg Livalo 4 mg No Livalo 4 [facility] tablet TAKE tablet TAKE mg tablet [facility] 1 TABLET BY 1 TABLET BY TAKE 1 dic MOUTH MOUTH TABLET BY Sports EVERYDAY AT EVERYDAY AT MOUTH Medicin BEDTIME BEDTIME EVERYDAY e AT BEDTIME metformin metformin No metformin [facility] ER 500 mg ER 500 mg ER 500 mg [facility] tablet,exte tablet,exte tablet,ext dic nded nded ended Sports release 24 release 24 release 24 Medicin hr TAKE 1 hr TAKE 1 hr TAKE 1 e TABLET BY TABLET BY TABLET BY MOUTH EVERY MOUTH EVERY MOUTH DAY IN THE DAY IN THE EVERY DAY EVENING EVENING IN THE WITH DINNER WITH DINNER EVENING WITH DINNER nifedipine nifedipine No nifedipine [facility] ER 30 mg ER 30 mg ER 30 mg Ort hope tablet,exte tablet,exte tablet,ext dic nded nded ended Sports release 24 release 24 release 24 Medicin hr TAKE 1 hr TAKE 1 hr TAKE 1 e TABLET BY TABLET BY TABLET BY MOUTH EVERY MOUTH EVERY MOUTH DAY DAY EVERY DAY Ozempic Ozempic No Ozempic [facility] 0.25 mg or 0.25 mg or 0.25 mg or [facility] 0.5 mg (2 0.5 mg (2 0.5 mg (2 dic mg/1.5 mL) mg/1.5 mL) mg/1.5 mL) Sports subcutaneou subcutaneou subcutaneo Medicin s pen s pen us pen e injector injector injector INJECT 0.5 INJECT 0.5 INJECT 0.5 MG MG MG SUBCUTANEOU SUBCUTANEOU SUBCUTANEO SLY EVERY SLY EVERY USLY EVERY WEEK FOR 30 WEEK FOR 30 WEEK FOR DAYS. DAYS. 30 DAYS. Premarin Premarin No Premarin Aza maritza 0.625 0.625 0.625 [facility] mg/gram mg/gram mg/gram dic vaginal vaginal vaginal Sports cream cream cream Medicin INSERT 0.5 INSERT 0.5 INSERT 0.5 e GM GM GM DIRECTED DIRECTED DIRECTED WITH WITH WITH APPLICATOR APPLICATOR APPLICATOR VAGINALLY VAGINALLY VAGINALLY THREE TIMES THREE TIMES THREE A WEEK FOR A WEEK FOR TIMES A 30 DAYS 30 DAYS WEEK FOR 30 DAYS Restasis Restasis No Restasis Aza maritza 0.05 % eye 0.05 % eye 0.05 % eye [facility] drops in a drops in a drops in a dic dropperette dropperette dropperett Sports INSTILL 1 INSTILL 1 e INSTILL Medicin DROP INTO DROP INTO 1 DROP e BOTH EYES BOTH EYES INTO BOTH TWICE A DAY TWICE A DAY EYES TWICE A DAY Tradjenta 5 Tradjenta 5 No Tradjenta Arlin mg tablet mg tablet 5 mg Orth[facility] pe RX by other RX by other tablet RX dic MD MD by other Sports MD Medicin e Tresiba Tresiba No Tresiba [facility] FlexTouch FlexTouch FlexTouch [facility] U-200 U-200 U-200 dic insulin 200 insulin 200 insulin Sports unit/mL (3 unit/mL (3 200 Med icin mL) mL) unit/mL (3 e subcutaneou subcutaneou mL) s pen s pen subcutaneo INJECT 34 INJECT 34 us pen UNITS UNITS INJECT 34 SUBCUTANEOU SUBCUTANEOU UNITS SLY EVERY SLY EVERY SUBCUTANEO MORNING AND MORNING AND USLY EVERY INCREASE INCREASE MORNING DIRECTED DIRECTED AND *TOTAL *TOTAL INCREASE DAILY DOSE DAILY DOSE 50 UNITS* 50 UNITS* DIRECTED *TOTAL DAILY DOSE 50 UNITS* Trulicity 3 Trulicity 3 No Trulicity [facility] mg/0.5 mL mg/0.5 mL 3 mg/0.5 O r[facility]ope subcutaneou subcutaneou mL d ic s pen s pen subcutaneo Sports injector injector us pen Medic in INJECT 3 MG INJECT 3 MG injector e (ONE PEN) (ONE PEN) INJECT 3 EVERY WEEK EVERY WEEK MG (ONE BY BY PEN) EVERY SUBCUTANEOU SUBCUTANEOU WEEK BY S ROUTE S ROUTE SUBCUTANEO DIRECTED DIRECTED US ROUTE FOR 90 FOR 90 DAYS. DAYS. DIRECTED FOR 90 DAYS. valsartan valsartan No valsartan [facility] 320 mg 320 mg 320 mg [facility] tablet TAKE tablet TAKE tablet dic 1 TABLET BY 1 TABLET BY TAKE 1 Sports MOUTH EVERY MOUTH EVERY TABLET BY Medicin DAY DAY MOUTH e EVERY DAY Accu-Chek Accu-Chek No Accu-Chek Ar[facility] Fior Plus Fior Plus Fior Plus [facility] test strips test strips test d ic TEST 3 TEST 3 strips Sports TIMES A DAY TIMES A DAY TEST 3 Medicin DIRECTED DIRECTED TIMES A e DAY DIRECTED acetaminoph acetaminoph No acetaminop Arlin en 300 en 300 hen 300 [facility] mg-codeine mg-codeine mg-codeine dic 60 mg 60 mg 60 mg Sports tablet TAKE tablet TAKE tablet Medicin 1 TABLET BY 1 TABLET BY TAKE 1 e MOUTH EVERY MOUTH EVERY TABLET BY 6 HOURS 6 HOURS MOUTH NEEDED NEEDED EVERY 6 HOURS NEEDED acyclovir acyclovir No acyclovir [facility] 800 mg 800 mg 800 mg [facility] tablet TAKE tablet TAKE tablet dic 1 TABLET BY 1 TABLET BY TAKE 1 Sports MOUTH TWICE MOUTH TWICE TABLET BY Medicin A DAY A DAY MOUTH e TWICE A DAY alprazolam alprazolam No alprazolam [facility]lin 0.25 mg 0.25 mg 0.25 mg Orth[facility] e tablet TAKE tablet TAKE tablet dic 1 TO 2 1 TO 2 TAKE 1 TO Sports TABLETS BY TABLETS BY 2 TABLETS Medicin MOUTH PRIOR MOUTH PRIOR BY MOUTH e TO CT TO CT PRIOR TO SCAN/PET SCAN/PET CT SCAN SCAN SCAN/PET SCAN amlodipine amlodipine No amlodipine [facility] 10 mg 10 mg 10 mg [facility] tablet RX tablet RX tablet RX dic by other MD by other MD by other Sports MD Medicin e amoxicillin amoxicillin No amoxicilli [facility] 500 mg 500 mg n 500 mg [facility] capsule capsule capsule dic TAKE 4 TAKE 4 TAKE 4 Sports CAPSULES BY CAPSULES BY CAPSULES Medicin MOUTH I MOUTH I BY MOUTH I e HOUR PRIOR HOUR PRIOR HOUR PRIOR TO DENTAL TO DENTAL TO DENTAL APPOINTMENT APPOINTMENT APPOINTMEN T BD Shaina 2nd BD Shaina 2nd No BD Shaina Arlin Gen Pen Gen Pen 2nd Gen [facility] e Needle 32 Needle 32 Pen Needle dic gauge x gauge x 32 gauge x Spo rts " USE " USE " USE Medicin DIRECTED DIRECTED e ONCE DAILY ONCE DAILY DIRECTED ONCE DAILY carvedilol carvedilol No carvedilol [facility] 12.5 mg 12.5 mg 12.5 mg [facility] e tablet TAKE tablet TAKE tablet dic 1 TABLET BY 1 TABLET BY TAKE 1 Sports MOUTH TWICE MOUTH TWICE TABLET BY Medicin A DAY A DAY MOUTH e TWICE A DAY carvedilol carvedilol No carvedilol [facility] 25 mg 25 mg 25 mg [facility] tablet TAKE tablet TAKE tablet dic 1 TABLET BY 1 TABLET BY TAKE 1 Sports MOUTH TWICE MOUTH TWICE TABLET BY Medicin A DAY A DAY MOUTH e TWICE A DAY cinacalcet cinacalcet No cinacalcet Arlin 30 mg 30 mg 30 mg [facility] tablet TAKE tablet TAKE tablet dic 1 TABLET BY 1 TABLET BY TAKE 1 Sports MOUTH TWICE MOUTH TWICE TABLET BY Medicin A DAY A DAY MOUTH e TWICE A DAY metFORMIN metFORMIN Yes UT HCl - 500 HCl - [address]i [address] MG Oral MG Oral ans Tablet Tablet clonidine clonidine No clonidine [facility] HCl 0.1 mg HCl 0.1 mg HCl 0.1 mg [facility] tablet 1/2 tablet 1/2 tablet 1/2 dic TAB THREE TAB THREE TAB THREE Sports TIMES DAILY TIMES DAILY TIMES Medicin DAILY e Co Q-10 Co Q-10 No Co Q-10 [facility]lin (with Vit (with Vit (with Vit [facility] E) 100 mg-5 E) 100 mg-5 E) 100 dic unit unit mg-5 unit Sports capsule RX capsule RX capsule RX Medicin by other MD by other by other e Crestor 10 Crestor 10 No Crestor 10 Arlin mg tablet mg tablet mg tablet [facility] RX by other RX by other RX by dic MD MD kathy Muir Medicin e DulcoEase DulcoEase No DulcoEase Arlin 100 mg 100 mg 100 mg [facility] capsule RX capsule RX capsule RX dic by other MD by other by other Sports Medicin e ezetimibe ezetimibe No ezetimibe Arlin 10 mg 10 mg 10 mg [facility] tablet TAKE tablet TAKE tablet dic 1 TABLET BY 1 TABLET BY TAKE 1 Sports MOUTH EVERY MOUTH EVERY TABLET BY Medicin DAY DAY MOUTH e EVERY DAY furosemide furosemide No furosemide [facility] 20 mg 20 mg 20 mg [facility] tablet TAKE tablet TAKE tablet dic 1 TABLET BY 1 TABLET BY TAKE 1 Sports MOUTH EVERY MOUTH EVERY TABLET BY Medicin DAY DAY MOUTH e EVERY DAY gabapentin gabapentin No gabapentin [facility] 300 mg 300 mg 300 mg [facility] capsule capsule capsule dic TAKE 1 TAKE 1 TAKE 1 Sports CAPSULE BY CAPSULE BY CAPSULE BY Medicin MOUTH THREE MOUTH THREE MOUTH e TIMES A DAY TIMES A DAY THREE TIMES A DAY Tresiba Tresiba Yes UT FlexTouch FlexTouch Physi ci 100 UNIT/ML 100 UNIT/ML a ns Subcutaneou Subcutaneou s Solution s Solution Pen-injecto Pen-injecto r r hydrocodone hydrocodone No 1 Q6H hydrocodon Arlin 5 5 e 5 [facility] mg-acetamin mg-acetamin mg-acetami dic ophen 325 ophen 325 nophen 325 Sports mg tablet mg tablet mg tablet Medicin Take 1 Take 1 Take 1 e tablet tablet tablet every 6 every 6 every 6 hours by hours by hours by oral route oral route oral route as needed. as needed. as needed. irbesartan irbesartan No irbesartan [facility] 300 mg 300 mg 300 mg [facility] tablet RX tablet RX tablet RX dic by other MD by other MD by other Sports MD Medicin e Hasmukh Pastortadufifi No Jentadueto Arlin XR 5 XR 5 XR 5 [facility]ope mg-1,000 mg mg-1,000 mg mg-1,000 dic tablet, tablet, mg tablet, Spo rts extended extended extended Med icin release release release e TAKE 1 TAKE 1 TAKE 1 TABLET BY TABLET BY TABLET BY MOUTH EVERY MOUTH EVERY MOUTH DAY IN THE DAY IN THE EVERY DAY MORNING MORNING IN THE MORNING Livalo 4 mg Livalo 4 mg No Livalo 4 Arlin tablet TAKE tablet TAKE mg tablet Orthope 1 TABLET BY 1 TABLET BY TAKE 1 dic MOUTH MOUTH TABLET BY Sports EVERYDAY AT EVERYDAY AT MOUTH Medicin BEDTIME BEDTIME EVERYDAY e AT BEDTIME metformin metformin No metformin Arlin ER 500 mg ER 500 mg ER 500 mg [facility] tablet,exte tablet,exte tablet,ext dic nded nded ended Sports release 24 release 24 release 24 Medicin hr TAKE 1 hr TAKE 1 hr TAKE 1 e TABLET BY TABLET BY TABLET BY MOUTH EVERY MOUTH EVERY MOUTH DAY IN THE DAY IN THE EVERY DAY EVENING EVENING IN THE WITH DINNER WITH DINNER EVENING WITH DINNER nifedipine nifedipine No nifedipine Arlin ER 30 mg ER 30 mg ER 30 mg Ort hope tablet,exte tablet,exte tablet,ext dic nded nded ended Sports release release release Medici n TAKE 1 TAKE 1 TAKE 1 e TABLET BY TABLET BY TABLET BY MOUTH EVERY MOUTH EVERY MOUTH DAY DAY EVERY DAY Tradjenta 5 Tradjenta 5 Yes U T MG Oral MG Oral Physici Tablet Tablet ans nifedipine nifedipine No nifedipine Arlin ER 30 mg ER 30 mg ER 30 mg Ort hope tablet,exte tablet,exte tablet,ext dic nded nded ended Sports release 24 release 24 release 24 Medicin hr TAKE 1 hr TAKE 1 hr TAKE 1 e TABLET BY TABLET BY TABLET BY MOUTH EVERY MOUTH EVERY MOUTH DAY DAY EVERY DAY Ozempic Ozempic No Ozempic Arlin 0.25 mg or 0.25 mg or 0.25 mg or Orthope 0.5 mg (2 0.5 mg (2 0.5 mg (2 dic mg/1.5 mL) mg/1.5 mL) mg/1.5 mL) Sports subcutaneou subcutaneou subcutaneo Medicin s pen s pen us pen e injector injector injector INJECT 0.5 INJECT 0.5 INJECT 0.5 MG MG MG SUBCUTANEOU SUBCUTANEOU SUBCUTANEO SLY EVERY SLY EVERY USLY EVERY WEEK FOR 30 WEEK FOR 30 WEEK FOR DAYS. DAYS. 30 DAYS. Premarin Premarin No Premarin Aza maritza 0.625 0.625 0.625 [facility]ope mg/gram mg/gram mg/gram dic vaginal vaginal vaginal Sports cream cream cream Medicin INSERT 0.5 INSERT 0.5 INSERT 0.5 e GM GM GM DIRECTED DIRECTED DIRECTED WITH WITH WITH APPLICATOR APPLICATOR APPLICATOR VAGINALLY VAGINALLY VAGINALLY THREE TIMES THREE TIMES THREE A WEEK FOR A WEEK FOR TIMES A 30 DAYS 30 DAYS WEEK FOR 30 DAYS Restasis Restasis No Restasis Aza maritza 0.05 % eye 0.05 % eye 0.05 % eye Orthope drops in a drops in a drops in a dic dropperette dropperette dropperett Sports INSTILL 1 INSTILL 1 e INSTILL Medicin DROP INTO DROP INTO 1 DROP e BOTH EYES BOTH EYES INTO BOTH TWICE A DAY TWICE A DAY EYES TWICE A DAY Trulicity Trulicity Yes UT 0.75 0.75 Physici MG/0.5ML MG/0.5ML ans Subcutaneou Subcutaneou s Solution s Solution Pen-injecto Pen-injecto r r Soliqua Soliqua No Soliqua Arlin 100/33 100 100/33 100 100/33 100 Orthope unit-33 unit-33 unit-33 dic mcg/mL mcg/mL mcg/mL Sports subcutaneou subcutaneou subcutaneo Medicin s insulin s insulin us insulin e pen pen pen Tradjenta 5 Tradjenta 5 No Tradjenta Arlin mg tablet mg tablet 5 mg Ortho pe RX by other RX by other tablet RX dic MD MD by other Sports MD Medicin e Tresiba Tresiba No Tresiba Arlin FlexTouch FlexTouch FlexTouch [facility] U-200 U-200 U-200 dic insulin 200 insulin 200 insulin Sports unit/mL (3 unit/mL (3 200 Med icin mL) mL) unit/mL (3 e subcutaneou subcutaneou mL) s pen s pen subcutaneo INJECT 34 INJECT 34 us pen UNITS UNITS INJECT 34 SUBCUTANEOU SUBCUTANEOU UNITS SLY EVERY SLY EVERY SUBCUTANEO MORNING AND MORNING AND USLY EVERY INCREASE INCREASE MORNING DIRECTED DIRECTED AND *TOTAL *TOTAL INCREASE DAILY DOSE DAILY DOSE 50 UNITS* 50 UNITS* DIRECTED *TOTAL DAILY DOSE 50 UNITS* amLODIPine amLODIPine Yes UT Besylate 5 Besylate 5 Phy sici MG Oral MG Oral ans Tablet Tablet Trulicity 3 Trulicity 3 No Trulicity Arlin mg/0.5 mL mg/0.5 mL 3 mg/0.5 O rthope subcutaneou subcutaneou mL d ic s pen s pen subcutaneo Sports injector injector us pen Medic in INJECT 3 MG INJECT 3 MG injector e (ONE PEN) (ONE PEN) INJECT 3 EVERY WEEK EVERY WEEK MG (ONE BY BY PEN) EVERY SUBCUTANEOU SUBCUTANEOU WEEK BY S ROUTE S ROUTE SUBCUTANEO DIRECTED DIRECTED US ROUTE FOR 90 FOR 90 DAYS. DAYS. DIRECTED FOR 90 DAYS. valsartan valsartan No valsartan Arlin 320 mg 320 mg 320 mg [facility] tablet TAKE tablet TAKE tablet dic 1 TABLET BY 1 TABLET BY TAKE 1 Sports MOUTH EVERY MOUTH EVERY TABLET BY Medicin DAY DAY MOUTH e EVERY DAY Accu-Chek Accu-Chek No Accu-Chek Arlin Fior Plus Fior Plus Fior Plus [facility] test strips test strips test d ic TEST 3 TEST 3 strips Sports TIMES A DAY TIMES A DAY TEST 3 Medicin DIRECTED DIRECTED TIMES A e DAY DIRECTED Carvedilol Carvedilol Yes UT 25 MG Oral 25 MG Oral Phy sici Tablet Tablet ans acetaminoph acetaminoph No acetaminop Arlin en 300 en 300 hen 300 [facility] mg-codeine mg-codeine mg-codeine dic 60 mg 60 mg 60 mg Sports tablet TAKE tablet TAKE tablet Medicin 1 TABLET BY 1 TABLET BY TAKE 1 e MOUTH EVERY MOUTH EVERY TABLET BY 6 HOURS 6 HOURS MOUTH NEEDED NEEDED EVERY 6 HOURS NEEDED acyclovir acyclovir No acyclovir Arlin 800 mg 800 mg 800 mg [facility] tablet TAKE tablet TAKE tablet dic 1 TABLET BY 1 TABLET BY TAKE 1 Sports MOUTH TWICE MOUTH TWICE TABLET BY Medicin A DAY A DAY MOUTH e TWICE A DAY alprazolam alprazolam No alprazolam [facility]lin 0.25 mg 0.25 mg 0.25 mg Orthop e tablet TAKE tablet TAKE tablet dic 1 TO 2 1 TO 2 TAKE 1 TO Sports TABLETS BY TABLETS BY 2 TABLETS Medicin MOUTH PRIOR MOUTH PRIOR BY MOUTH e TO CT TO CT PRIOR TO SCAN/PET SCAN/PET CT SCAN SCAN SCAN/PET SCAN amlodipine amlodipine No amlodipine [facility] 10 mg 10 mg 10 mg [facility] tablet RX tablet RX tablet RX dic by other MD by other MD by other Sports MD Medicin e amoxicillin amoxicillin No amoxicilli Arlin 500 mg 500 mg n 500 mg [facility] capsule capsule capsule dic TAKE 4 TAKE 4 TAKE 4 Sports CAPSULES BY CAPSULES BY CAPSULES Medicin MOUTH I MOUTH I BY MOUTH I e HOUR PRIOR HOUR PRIOR HOUR PRIOR TO DENTAL TO DENTAL TO DENTAL APPOINTMENT APPOINTMENT APPOINTMEN T amoxicillin amoxicillin No amoxicilli Arlin 500 500 n 500 [facility]ope mg-potassiu mg-potassiu mg-potassi dic m m um Sports clavulanate clavulanate clavulanat Medicin 125 mg 125 mg e 125 mg e tablet tablet tablet BD Shaina 2nd BD Shaina 2nd No BD Shaina Arlin Gen Pen Gen Pen 2nd Gen Orthop e Needle 32 Needle 32 Pen Needle dic gauge x gauge x 32 gauge x Spo rts " USE " USE " USE Medicin DIRECTED DIRECTED e ONCE DAILY ONCE DAILY DIRECTED ONCE DAILY Cinacalcet Cinacalcet Yes UT HCl - 30 MG HCl - 30 MG P hysici Oral Tablet Oral Tablet a ns carvedilol carvedilol No carvedilol [facility]lin 12.5 mg 12.5 mg 12.5 mg Orthop e tablet TAKE tablet TAKE tablet dic 1 TABLET BY 1 TABLET BY TAKE 1 Sports MOUTH TWICE MOUTH TWICE TABLET BY Medicin A DAY A DAY MOUTH e TWICE A DAY carvedilol carvedilol No carvedilol [facility] 25 mg 25 mg 25 mg [facility] tablet TAKE tablet TAKE tablet dic 1 TABLET BY 1 TABLET BY TAKE 1 Sports MOUTH TWICE MOUTH TWICE TABLET BY Medicin A DAY A DAY MOUTH e TWICE A DAY cinacalcet cinacalcet No cinacalcet [facility]lin 30 mg 30 mg 30 mg [facility] tablet TAKE tablet TAKE tablet dic 1 TABLET BY 1 TABLET BY TAKE 1 Sports MOUTH TWICE MOUTH TWICE TABLET BY Medicin A DAY A DAY MOUTH e TWICE A DAY clindamycin clindamycin No clindamyci [facility]lin 2 % vaginal 2 % vaginal n 2 % [facility] cream cream vaginal dic cream Sports Medicin e clonidine clonidine No clonidine [facility]lin HCl 0.1 mg HCl 0.1 mg HCl 0.1 mg [facility] tablet 1/2 tablet 1/2 tablet 1/2 dic TAB THREE TAB THREE TAB THREE Sports TIMES DAILY TIMES DAILY TIMES Medicin DAILY e Co Q-10 Co Q-10 No Co Q-10 Arlin (with Vit (with Vit (with Vit [facility] E) 100 mg-5 E) 100 mg-5 E) 100 dic unit unit mg-5 unit Sports capsule RX capsule RX capsule RX Medicin by other MD by other MD by other e Crestor 10 Crestor 10 No Crestor 10 Arlin mg tablet mg tablet mg tablet [facility] RX by other RX by other RX by dic MD MD kathy WARD Sports Medicin e DulcoEase DulcoEase No DulcoEase Arlin 100 mg 100 mg 100 mg [facility] capsule RX capsule RX capsule RX dic by other MD by other MD by other Sports MD Medicin e Lisinopril Lisinopril Yes UT 20 MG Oral 20 MG Oral Phy sici Tablet Tablet ans ezetimibe ezetimibe No ezetimibe [facility] 10 mg 10 mg 10 mg [facility] tablet TAKE tablet TAKE tablet dic 1 TABLET BY 1 TABLET BY TAKE 1 Sports MOUTH EVERY MOUTH EVERY TABLET BY Medicin DAY DAY MOUTH e EVERY DAY fluconazole fluconazole No fluconazol [facility] 150 mg 150 mg e 150 mg [facility] tablet 1 tablet 1 tablet 1 dic TABLET TABLET TABLET Sports ORALLY NOW, ORALLY NOW, ORALLY Medicin THEN AGAIN THEN AGAIN NOW, THEN e IN 72 HOURS IN 72 HOURS AGAIN IN 4 DAY(S) 4 DAY(S) 72 HOURS 4 DAY(S) furosemide furosemide No furosemide [facility] 20 mg 20 mg 20 mg [facility] tablet TAKE tablet TAKE tablet dic 1 TABLET BY 1 TABLET BY TAKE 1 Sports MOUTH EVERY MOUTH EVERY TABLET BY Medicin DAY DAY MOUTH e EVERY DAY gabapentin gabapentin No gabapentin [facility] 300 mg 300 mg 300 mg [facility] capsule capsule capsule dic TAKE 1 TAKE 1 TAKE 1 Sports CAPSULE BY CAPSULE BY CAPSULE BY Medicin MOUTH THREE MOUTH THREE MOUTH e TIMES A DAY TIMES A DAY THREE TIMES A DAY hydralazine hydralazine No hydralazin [facility] 25 mg 25 mg e 25 mg [facility] tablet TAKE tablet TAKE tablet dic 1 TABLET BY 1 TABLET BY TAKE 1 Sports MOUTH TWICE MOUTH TWICE TABLET BY Medicin A DAY A DAY MOUTH e TWICE A DAY hydrocodone hydrocodone No hydrocodon [facility]lin 5 5 e 5 [facility] mg-acetamin mg-acetamin mg-acetami dic ophen 325 ophen 325 nophen 325 Sports mg tablet mg tablet mg tablet Medicin TAKE 1 TAKE 1 TAKE 1 e TABLET BY TABLET BY TABLET BY MOUTH EVERY MOUTH EVERY MOUTH 6 HOURS 6 HOURS EVERY 6 NEEDED NEEDED HOURS NEEDED ID NOW ID NOW No ID NOW Arlin COVID-19 COVID-19 COVID-19 Ort hope Test Kit Test Kit Test Kit dic TEST TEST TEST Sports DIRECTED DIRECTED DIRECTED Med icin TODAY TODAY TODAY e irbesartan irbesartan No irbesartan [facility]lin 300 mg 300 mg 300 mg [facility] tablet RX tablet RX tablet RX dic by other MD by other MD by other Sports MD Rajesh Noe No Hasmukh Arlin XR 5 XR 5 XR 5 [facility] mg-1,000 mg mg-1,000 mg mg-1,000 dic tablet, tablet, mg tablet, Spo rts extended extended extended Med icin release release release e TAKE 1 TAKE 1 TAKE 1 TABLET BY TABLET BY TABLET BY MOUTH EVERY MOUTH EVERY MOUTH DAY IN THE DAY IN THE EVERY DAY MORNING MORNING IN THE MORNING Livalo 4 mg Livalo 4 mg No Livalo 4 [facility]lin tablet TAKE tablet TAKE mg tablet [facility] 1 TABLET BY 1 TABLET BY TAKE 1 dic MOUTH MOUTH TABLET BY Sports EVERYDAY AT EVERYDAY AT MOUTH Medicin BEDTIME BEDTIME EVERYDAY e AT BEDTIME metformin metformin No metformin [facility]lin ER 500 mg ER 500 mg ER 500 mg [facility] tablet,exte tablet,exte tablet,ext dic nded nded ended Sports release 24 release 24 release 24 Medicin hr TAKE 1 hr TAKE 1 hr TAKE 1 e TABLET BY TABLET BY TABLET BY MOUTH EVERY MOUTH EVERY MOUTH DAY IN THE DAY IN THE EVERY DAY EVENING EVENING IN THE WITH DINNER WITH DINNER EVENING WITH DINNER Pravastatin Pravastatin Yes U T Sodium 20 Sodium 20 Physi ci MG Oral MG Oral ans Tablet Tablet nifedipine nifedipine No nifedipine [facility]lin ER 30 mg ER 30 mg ER 30 mg Ort hope tablet,exte tablet,exte tablet,ext dic nded nded ended Sports release release release Medici n TAKE 1 TAKE 1 TAKE 1 e TABLET BY TABLET BY TABLET BY MOUTH EVERY MOUTH EVERY MOUTH DAY DAY EVERY DAY nifedipine nifedipine No nifedipine [facility]lin ER 30 mg ER 30 mg ER 30 mg Ort hope tablet,exte tablet,exte tablet,ext dic nded nded ended Sports release 24 release 24 release 24 Medicin hr TAKE 1 hr TAKE 1 hr TAKE 1 e TABLET BY TABLET BY TABLET BY MOUTH EVERY MOUTH EVERY MOUTH DAY DAY EVERY DAY Novolog Novolog No Novolog [facility] Flexpen Flexpen Flexpen Orthop e U-100 U-100 U-100 dic Insulin Insulin Insulin Sports aspart 100 aspart 100 aspart 100 Medicin unit/mL (3 unit/mL (3 unit/mL (3 e mL) mL) mL) subcutaneou subcutaneou subcutaneo s INJECT s INJECT us INJECT BEFORE BEFORE BEFORE MEALS FOR MEALS FOR MEALS FOR GLUCOSE GLUCOSE GLUCOSE >200 USING >200 USING >200 USING CF 1:30 TDD CF 1:30 TDD CF 1:30 50 50 TDD 50 nystatin-tr nystatin-tr No nystatin-t Arlin iamcinolone iamcinolone riamcinolo [facility] 100,000 100,000 ne 100,000 dic unit/g-0.1 unit/g-0.1 unit/g-0.1 Sports % topical % topical % topical Medicin cream APPLY cream APPLY cream e 1 1 APPLY 1 APPLICATION APPLICATION APPLICATIO TO AFFECTED TO AFFECTED N TO AREA AREA AFFECTED EXTERNALLY EXTERNALLY AREA TWICE A DAY TWICE A DAY EXTERNALLY FOR 30 DAYS FOR 30 DAYS TWICE A DAY FOR 30 DAYS Ozempic Ozempic No Ozempic [facility]lin 0.25 mg or 0.25 mg or 0.25 mg or [facility] 0.5 mg (2 0.5 mg (2 0.5 mg (2 dic mg/1.5 mL) mg/1.5 mL) mg/1.5 mL) Sports subcutaneou subcutaneou subcutaneo Medicin s pen s pen us pen e injector injector injector INJECT 0.5 INJECT 0.5 INJECT 0.5 MG MG MG SUBCUTANEOU SUBCUTANEOU SUBCUTANEO SLY EVERY SLY EVERY USLY EVERY WEEK FOR 30 WEEK FOR 30 WEEK FOR DAYS. DAYS. 30 DAYS. Premarin Premarin No Premarin Aza maritza 0.625 0.625 0.625 [facility] mg/gram mg/gram mg/gram dic vaginal vaginal vaginal Sports cream cream cream Medicin INSERT 0.5 INSERT 0.5 INSERT 0.5 e GM GM GM DIRECTED DIRECTED DIRECTED WITH WITH WITH APPLICATOR APPLICATOR APPLICATOR VAGINALLY VAGINALLY VAGINALLY THREE TIMES THREE TIMES THREE A WEEK FOR A WEEK FOR TIMES A 30 DAYS 30 DAYS WEEK FOR 30 DAYS Restasis Restasis No Restasis Aza maritza 0.05 % eye 0.05 % eye 0.05 % eye [facility] drops in a drops in a drops in a dic dropperette dropperette dropperett Sports INSTILL 1 INSTILL 1 e INSTILL Medicin DROP INTO DROP INTO 1 DROP e BOTH EYES BOTH EYES INTO BOTH TWICE A DAY TWICE A DAY EYES TWICE A DAY Aspirin 81 Aspirin 81 Yes UT MG TABS MG TABS Physici ans Soliqua Soliqua No Soliqua Arlin 100/33 100 100/33 100 100/33 100 [facility] unit-33 unit-33 unit-33 dic mcg/mL mcg/mL mcg/mL Sports subcutaneou subcutaneou subcutaneo Medicin s insulin s insulin us insulin e pen INJECT pen INJECT pen INJECT 36 UNITS 36 UNITS 36 UNITS SUBCUTANEOU SUBCUTANEOU SUBCUTANEO SLY IN THE SLY IN THE USLY IN MORNING MORNING THE INCREASE INCREASE MORNING DIRECTED DIRECTED INCREASE DIRECTED Tradjenta 5 Tradjenta 5 No Tradjenta Arlin mg tablet mg tablet 5 mg Ortho pe RX by other RX by other tablet RX dic MD MD by other Sports MD Medicin e Tresiba Tresiba No Tresiba [facility]lin FlexTouch FlexTouch FlexTouch [facility] U-200 U-200 U-200 dic insulin 200 insulin 200 insulin Sports unit/mL (3 unit/mL (3 200 Med icin mL) mL) unit/mL (3 e subcutaneou subcutaneou mL) s pen s pen subcutaneo INJECT 34 INJECT 34 us pen UNITS UNITS INJECT 34 SUBCUTANEOU SUBCUTANEOU UNITS SLY EVERY SLY EVERY SUBCUTANEO MORNING AND MORNING AND USLY EVERY INCREASE INCREASE MORNING DIRECTED DIRECTED AND *TOTAL *TOTAL INCREASE DAILY DOSE DAILY DOSE 50 UNITS* 50 UNITS* DIRECTED *TOTAL DAILY DOSE 50 UNITS* Brilinta 90 Brilinta 90 Yes U T MG Oral MG Oral Physici Tablet Tablet ans Trulicity 3 Trulicity 3 No Trulicity Arlin mg/0.5 mL mg/0.5 mL 3 mg/0.5 O rthope subcutaneou subcutaneou mL d ic s pen s pen subcutaneo Sports injector injector us pen Medic in INJECT 3 MG INJECT 3 MG injector e (ONE PEN) (ONE PEN) INJECT 3 EVERY WEEK EVERY WEEK MG (ONE BY BY PEN) EVERY SUBCUTANEOU SUBCUTANEOU WEEK BY S ROUTE S ROUTE SUBCUTANEO DIRECTED DIRECTED US ROUTE FOR 90 FOR 90 DAYS. DAYS. DIRECTED FOR 90 DAYS. valsartan valsartan No valsartan [facility]lin 320 mg 320 mg 320 mg [facility] tablet TAKE tablet TAKE tablet dic 1 TABLET BY 1 TABLET BY TAKE 1 Sports MOUTH EVERY MOUTH EVERY TABLET BY Medicin DAY DAY MOUTH e EVERY DAY Accu-Chek Accu-Chek No Accu-Chek Arlin Fior Plus Fior Plus Fior Plus [facility] test strips test strips test d ic TEST 3 TEST 3 strips Sports TIMES A DAY TIMES A DAY TEST 3 Medicin DIRECTED DIRECTED TIMES A e DAY DIRECTED Gabapentin Gabapentin Yes UT 300 MG Oral 300 MG Oral P hysici Capsule Capsule ans acetaminoph acetaminoph No acetaminop Arlin en 300 en 300 hen 300 [facility] mg-codeine mg-codeine mg-codeine dic 60 mg 60 mg 60 mg Sports tablet TAKE tablet TAKE tablet Medicin 1 TABLET BY 1 TABLET BY TAKE 1 e MOUTH EVERY MOUTH EVERY TABLET BY 6 HOURS 6 HOURS MOUTH NEEDED NEEDED EVERY 6 HOURS NEEDED acyclovir acyclovir No acyclovir Arlin 800 mg 800 mg 800 mg [facility] tablet TAKE tablet TAKE tablet dic 1 TABLET BY 1 TABLET BY TAKE 1 Sports MOUTH TWICE MOUTH TWICE TABLET BY Medicin A DAY A DAY MOUTH e TWICE A DAY Furosemide Furosemide Yes UT 20 MG Oral 20 MG Oral Phy sici Tablet Tablet ans alprazolam alprazolam No alprazolam Arlin 0.25 mg 0.25 mg 0.25 mg Orthop e tablet TAKE tablet TAKE tablet dic 1 TO 2 1 TO 2 TAKE 1 TO Sports TABLETS BY TABLETS BY 2 TABLETS Medicin MOUTH PRIOR MOUTH PRIOR BY MOUTH e TO CT TO CT PRIOR TO SCAN/PET SCAN/PET CT SCAN SCAN SCAN/PET SCAN amlodipine amlodipine No amlodipine [facility] 10 mg 10 mg 10 mg [facility] tablet RX tablet RX tablet RX dic by other MD by other MD by other Sports MD Medicin e amoxicillin amoxicillin No amoxicilli Arlin 500 mg 500 mg n 500 mg [facility] capsule capsule capsule dic TAKE 4 TAKE 4 TAKE 4 Sports CAPSULES BY CAPSULES BY CAPSULES Medicin MOUTH I MOUTH I BY MOUTH I e HOUR PRIOR HOUR PRIOR HOUR PRIOR TO DENTAL TO DENTAL TO DENTAL APPOINTMENT APPOINTMENT APPOINTMEN T Vitamin D3 Vitamin D3 Yes UT TABS TABS Physici ans amoxicillin amoxicillin No amoxicilli Arlin 500 500 n 500 [facility] mg-potassiu mg-potassiu mg-potassi dic m m um Sports clavulanate clavulanate clavulanat Medicin 125 mg 125 mg e 125 mg e tablet tablet tablet BD Shaina 2nd BD Shaina 2nd No BD Shaina Arlin Gen Pen Gen Pen 2nd Gen Orthop e Needle 32 Needle 32 Pen Needle dic gauge x gauge x 32 gauge x Spo rts " USE " USE " USE Medicin DIRECTED DIRECTED e ONCE DAILY ONCE DAILY DIRECTED ONCE DAILY carvedilol carvedilol No carvedilol Arlin 12.5 mg 12.5 mg 12.5 mg Orthop e tablet TAKE tablet TAKE tablet dic 1 TABLET BY 1 TABLET BY TAKE 1 Sports MOUTH TWICE MOUTH TWICE TABLET BY Medicin A DAY A DAY MOUTH e TWICE A DAY carvedilol carvedilol No carvedilol [facility]lin 25 mg 25 mg 25 mg [facility] tablet TAKE tablet TAKE tablet dic 1 TABLET BY 1 TABLET BY TAKE 1 Sports MOUTH TWICE MOUTH TWICE TABLET BY Medicin A DAY A DAY MOUTH e TWICE A DAY cinacalcet cinacalcet No cinacalcet Arlin 30 mg 30 mg 30 mg [facility] tablet TAKE tablet TAKE tablet dic 1 TABLET BY 1 TABLET BY TAKE 1 Sports MOUTH TWICE MOUTH TWICE TABLET BY Medicin A DAY A DAY MOUTH e TWICE A DAY clindamycin clindamycin No clindamyci Arlin 2 % vaginal 2 % vaginal n 2 % [facility] cream cream vaginal dic cream Sports Medicin e MiraLax MiraLax Yes UT POWD POWD Physici ans clonidine clonidine No clonidine [facility]lin HCl 0.1 mg HCl 0.1 mg HCl 0.1 mg [facility] tablet 1/2 tablet 1/2 tablet 1/2 dic TAB THREE TAB THREE TAB THREE Sports TIMES DAILY TIMES DAILY TIMES Medicin DAILY e Co Q-10 Co Q-10 No Co Q-10 Arlin (with Vit (with Vit (with Vit [facility] E) 100 mg-5 E) 100 mg-5 E) 100 dic unit unit mg-5 unit Sports capsule RX capsule RX capsule RX Medicin by other MD by other MD by other e Accu-Chek Accu-Chek No Accu-Chek [facility] Fior Meter Fior Meter Fior Family Meter Practic e Accu-Chek Accu-Chek No Accu-Chek [facility] Fior Plus Fior Plus Fior Plus Family test strips test strips test P ractic TEST 3 TEST 3 strips e TIMES A DAY TIMES A DAY TEST 3 DIRECTED DIRECTED TIMES A DAY DIRECTED Accu-Chek Accu-Chek No Accu-Chek [facility] Fastclix Fastclix Fastclix Fam gail Lancet Drum Lancet Drum Lancet Practic USE USE Drum USE e DIRECTED 3 DIRECTED 3 TIMES DAILY TIMES DAILY DIRECTED 3 TIMES DAILY Accu-Chek Accu-Chek No Accu-Chek [facility] FastClix FastClix FastClix Fam gail Lancing Lancing Lancing Practi c Device Device Device e acetaminoph acetaminoph No acetaminop [facility] en 300 en 300 hen 300 Family mg-codeine mg-codeine mg-codeine Practic 60 mg 60 mg 60 mg e tablet TAKE tablet TAKE tablet 1 TABLET BY 1 TABLET BY TAKE 1 MOUTH EVERY MOUTH EVERY TABLET BY 6 HOURS 6 HOURS MOUTH NEEDED NEEDED EVERY 6 HOURS NEEDED acyclovir acyclovir No acyclovir [facility] 800 mg 800 mg 800 mg Family tablet tablet tablet Practic e alprazolam alprazolam No alprazolam [facility] 0.25 mg 0.25 mg 0.25 mg Family tablet TAKE tablet TAKE tablet Practic 1 TO 2 1 TO 2 TAKE 1 TO e TABLETS BY TABLETS BY 2 TABLETS MOUTH PRIOR MOUTH PRIOR BY MOUTH TO CT TO CT PRIOR TO SCAN/PET SCAN/PET CT SCAN SCAN SCAN/PET SCAN aspirin 81 aspirin 81 No 1 Q1D aspirin 81 [facility] mg mg mg Family tablet,noam tablet,noam tablet,del Practic yed release yed release ayed e Take 1 Take 1 release tablet tablet Take 1 every day every day tablet by oral by oral every day route as route as by oral directed. directed. route as directed. BD Shaina 2nd BD Shaina 2nd No BD Shaina [facility] Gen Pen Gen Pen 2nd Gen Family Needle 32 Needle 32 Pen Needle Practic gauge x gauge x 32 gauge x e " USE " USE " USE DIRECTED DIRECTED 4 TIMES 4 TIMES DIRECTED 4 DAILY DAILY TIMES DAILY carvedilol carvedilol No carvedilol [facility] 12.5 mg 12.5 mg 12.5 mg Family tablet TAKE tablet TAKE tablet Practic 1 TABLET BY 1 TABLET BY TAKE 1 e MOUTH TWICE MOUTH TWICE TABLET BY A DAY A DAY MOUTH TWICE A DAY carvedilol carvedilol No carvedilol [facility] 25 mg 25 mg 25 mg Family tablet TAKE tablet TAKE tablet Practic 1 TABLET BY 1 TABLET BY TAKE 1 e MOUTH TWICE MOUTH TWICE TABLET BY A DAY A DAY MOUTH TWICE A DAY cinacalcet cinacalcet No cinacalcet [facility] 30 mg 30 mg 30 mg Family tablet TAKE tablet TAKE tablet Practic 1 TABLET BY 1 TABLET BY TAKE 1 e MOUTH TWICE MOUTH TWICE TABLET BY A DAY A DAY MOUTH TWICE A DAY clonidine clonidine No clonidine [facility] HCl 0.1 mg HCl 0.1 mg HCl 0.1 mg Family tablet 1/2 tablet 1/2 tablet 1/2 Practic TAB THREE TAB THREE TAB THREE e TIMES DAILY TIMES DAILY TIMES DAILY CoQ-10 200 CoQ-10 200 No CoQ-10 200 [facility] mg mg mg Family Practic e Estring 2 Estring 2 No Estring 2 [facility] mg (7.5 mg (7.5 mg (7.5 Family mcg/24 mcg/24 mcg/24 Practic hour) hour) hour) e vaginal vaginal vaginal ring UISE ring UISE ring UISE DIRECTED DIRECTED DIRECTED ezetimibe ezetimibe No ezetimibe [facility] 10 mg 10 mg 10 mg Family tablet TAKE tablet TAKE tablet Practic 1 TABLET BY 1 TABLET BY TAKE 1 e MOUTH EVERY MOUTH EVERY TABLET BY DAY DAY MOUTH EVERY DAY furosemide furosemide No furosemide [place] 20 mg 20 mg 20 mg Family tablet TAKE tablet TAKE tablet Practic 1 TABLET BY 1 TABLET BY TAKE 1 e MOUTH EVERY MOUTH EVERY TABLET BY DAY DAY MOUTH EVERY DAY gabapentin gabapentin No gabapentin [place] 300 mg 300 mg 300 mg Family capsule capsule capsule Practi c TAKE 1 TAKE 1 TAKE 1 e CAPSULE BY CAPSULE BY CAPSULE BY MOUTH THREE MOUTH THREE MOUTH TIMES A DAY TIMES A DAY THREE TIMES A DAY Humalog Humalog No Humalog [facility] e KwikPen KwikPen KwikPen Family U-200 U-200 U-200 Practic Insulin 200 Insulin 200 Insulin e unit/mL (3 unit/mL (3 200 mL) mL) unit/mL (3 subcutaneou subcutaneou mL) s GIve s GIve subcutaneo before before us GIve meals for meals for before glucose glucose meals for >200 using >200 using glucose CF 1:30; CF 1:30; >200 using TDD 50 TDD 50 CF 1:30; TDD 50 hydralazine hydralazine No hydralazin [facility] 25 mg 25 mg e 25 mg Family tablet TAKE tablet TAKE tablet Practic 1 TABLET BY 1 TABLET BY TAKE 1 e MOUTH TWICE MOUTH TWICE TABLET BY A DAY A DAY MOUTH TWICE A DAY hydrocodone hydrocodone No hydrocodon [facility] 5 5 e 5 Family mg-acetamin mg-acetamin mg-acetami Practic ophen 325 ophen 325 nophen 325 e mg tablet mg tablet mg tablet TAKE 1 TAKE 1 TAKE 1 TABLET BY TABLET BY TABLET BY MOUTH EVERY MOUTH EVERY MOUTH 6 HOURS 6 HOURS EVERY 6 NEEDED NEEDED HOURS NEEDED ID NOW ID NOW No ID NOW [facility] COVID-19 COVID-19 COVID-19 Fam gail Test Kit Test Kit Test Kit Pra ctic TEST TEST TEST e DIRECTED DIRECTED DIRECTED TODAY TODAY TODAY Hasmukh Noe No Hasmukh [facility] XR 5 XR 5 XR 5 Family mg-1,000 mg mg-1,000 mg mg-1,000 Practic tablet, tablet, mg tablet, e extended extended extended release release release TAKE 1 TAKE 1 TAKE 1 TABLET BY TABLET BY TABLET BY MOUTH EVERY MOUTH EVERY MOUTH DAY IN THE DAY IN THE EVERY DAY MORNING MORNING IN THE MORNING lisinopril lisinopril No lisinopril [facility] 20 mg 20 mg 20 mg Family tablet TAKE tablet TAKE tablet Practic 2 TABLETS 2 TABLETS TAKE 2 e BY MOUTH BY MOUTH TABLETS BY EVERY DAY EVERY DAY MOUTH EVERY DAY Livalo 4 mg Livalo 4 mg No Livalo 4 [facility] tablet TAKE tablet TAKE mg tablet Family 1 TABLET BY 1 TABLET BY TAKE 1 Practic MOUTH MOUTH TABLET BY e EVERYDAY AT EVERYDAY AT MOUTH BEDTIME BEDTIME EVERYDAY AT BEDTIME Miralax Miralax No Miralax [facility] Pract[facility] e nifedipine nifedipine No nifedipine [facility] 30 mg ER 30 mg ER 30 mg Fam gail tablet,exte tablet,exte tablet,ext Practic nded nded ended e release release release nifedipine nifedipine No nifedipine [facility] ER 30 mg ER 30 mg ER 30 mg Fam gail tablet,exte tablet,exte tablet,ext Practic nded nded ended e release 24 release 24 release 24 hr TAKE 1 hr TAKE 1 hr TAKE 1 TABLET BY TABLET BY TABLET BY MOUTH EVERY MOUTH EVERY MOUTH DAY DAY EVERY DAY Novolog Novolog No Novolog Vill[facility] Flexpen Flexpen Flexpen Family U-100 U-100 U-100 Practic Insulin Insulin Insulin e aspart 100 aspart 100 aspart 100 unit/mL (3 unit/mL (3 unit/mL (3 mL) mL) mL) subcutaneou subcutaneou subcutaneo s INJECT s INJECT us INJECT BEFORE BEFORE BEFORE MEALS FOR MEALS FOR MEALS FOR GLUCOSE GLUCOSE GLUCOSE >200 USING >200 USING >200 USING CF 1:30 TDD CF 1:30 TDD CF 1:30 50 50 TDD 50 Premarin Premarin No Premarin Perry benny 0.625 0.625 0.625 Family mg/gram mg/gram mg/gram Practi c vaginal vaginal vaginal e cream cream cream INSERT 0.5 INSERT 0.5 INSERT 0.5 GM GM GM DIRECTED DIRECTED DIRECTED WITH WITH WITH APPLICATOR APPLICATOR APPLICATOR VAGINALLY VAGINALLY VAGINALLY THREE TIMES THREE TIMES THREE A WEEK FOR A WEEK FOR TIMES A 30 DAYS 30 DAYS WEEK FOR 30 DAYS Nic Lucero No Nic Manzanares e 100/33 100 100/33 100 100/33 100 Family unit-33 unit-33 unit-33 Practi c mcg/mL mcg/mL mcg/mL e subcutaneou subcutaneou subcutaneo s insulin s insulin us insulin pen INJECT pen INJECT pen INJECT 36 UNITS 36 UNITS 36 UNITS SUBCUTANEOU SUBCUTANEOU SUBCUTANEO SLY IN THE SLY IN THE USLY IN MORNING MORNING THE INCREASE INCREASE MORNING DIRECTED DIRECTED INCREASE DIRECTED valsartan valsartan No valsartan [facility] 320 mg 320 mg 320 mg Family tablet TAKE tablet TAKE tablet Practic 1 TABLET BY 1 TABLET BY TAKE 1 e MOUTH EVERY MOUTH EVERY TABLET BY DAY DAY MOUTH EVERY DAY Vitamin D3 Vitamin D3 No Vitamin D3 [facility] Practic e Accu-Chek Accu-Chek No Accu-Chek [facility] Fior Meter Fior Meter Fior [facility] Meter Practic e Accu-Chek Accu-Chek No Accu-Chek [facility] Fior Plus Fior Plus Fior Plus Family test strips test strips test P ractic TEST 3 TEST 3 strips e TIMES A DAY TIMES A DAY TEST 3 DIRECTED DIRECTED TIMES A DAY DIRECTED Accu-Chek Accu-Chek No Accu-Chek [facility] Fastclix Fastclix Fastclix Fam gail Lancet Drum Lancet Drum Lancet Practic USE USE Drum USE e DIRECTED 3 DIRECTED 3 TIMES DAILY TIMES DAILY DIRECTED 3 TIMES DAILY Accu-Chek Accu-Chek No Accu-Chek [facility] FastClix FastClix FastClix Fam gail Lancing Lancing Lancing Practi c Device Device Device e acetaminoph acetaminoph No acetaminop [facility] en 300 en 300 hen 300 Family mg-codeine mg-codeine mg-codeine Practic 60 mg 60 mg 60 mg e tablet TAKE tablet TAKE tablet 1 TABLET BY 1 TABLET BY TAKE 1 MOUTH EVERY MOUTH EVERY TABLET BY 6 HOURS 6 HOURS MOUTH NEEDED NEEDED EVERY 6 HOURS NEEDED acyclovir acyclovir No acyclovir [facility] 800 mg 800 mg 800 mg Family tablet tablet tablet Practic e alprazolam alprazolam alprazolam [facility] 0.25 mg 0.25 mg 0.25 mg Family tablet TAKE tablet TAKE tablet Practic 1 TO 2 1 TO 2 TAKE 1 TO e TABLETS BY TABLETS BY 2 TABLETS MOUTH PRIOR MOUTH PRIOR BY MOUTH TO CT TO CT PRIOR TO SCAN/PET SCAN/PET CT SCAN SCAN SCAN/PET SCAN aspirin 81 aspirin 81 No 1 Q1D aspirin 81 [facility] mg mg mg Family tablet,noam tablet,noam tablet,del Practic yed release yed release ayed e Take 1 Take 1 release tablet tablet Take 1 every day every day tablet by oral by oral every day route as route as by oral directed. directed. route as directed. BD Shaina 2nd BD Shaina 2nd No BD Shaina [facility] Gen Pen Gen Pen 2nd Gen Family Needle 32 Needle 32 Pen Needle Practic gauge x gauge x 32 gauge x e " USE " USE " USE DIRECTED DIRECTED 4 TIMES 4 TIMES DIRECTED 4 DAILY DAILY TIMES DAILY budesonide budesonide No budesonide [facility] 1 mg/2 mL 1 mg/2 mL 1 mg/2 mL [facility] suspension suspension suspension Practic for for for e nebulizatio nebulizatio nebulizati n EMPTY 2 n EMPTY 2 on EMPTY 2 VIALS (4ML) VIALS (4ML) VIALS INTO INTO (4ML) INTO IRRIGATION IRRIGATION IRRIGATION SYSTEM, ADD SYSTEM, ADD SYSTEM, DISTILLED DISTILLED ADD WATER, WATER, DISTILLED IRRIGATE - IRRIGATE - WATER, ONCE TO ONCE TO IRRIGATE - TWICE DAILY TWICE DAILY ONCE TO TWICE DAILY carvedilol carvedilol No carvedilol [facility] 12.5 mg 12.5 mg 12.5 mg Family tablet TAKE tablet TAKE tablet Practic 1 TABLET BY 1 TABLET BY TAKE 1 e MOUTH TWICE MOUTH TWICE TABLET BY A DAY A DAY MOUTH TWICE A DAY cefixime cefixime No cefixime Perry benny 400 mg 400 mg 400 mg Family capsule capsule capsule Practi c EMPTY 1 EMPTY 1 EMPTY 1 e CAPSULE CAPSULE CAPSULE INTO INTO INTO IRRIGATION IRRIGATION IRRIGATION SYSTEM, ADD SYSTEM, ADD SYSTEM, DISTILLED DISTILLED ADD WATER, WATER, DISTILLED IRRIGATE - IRRIGATE - WATER, TWICE DAILY TWICE DAILY IRRIGATE - TWICE DAILY cinacalcet cinacalcet cinacalcet [facility] 30 mg 30 mg 30 mg Family tablet TAKE tablet TAKE tablet Practic 1 TABLET BY 1 TABLET BY TAKE 1 e MOUTH TWICE MOUTH TWICE TABLET BY A DAY A DAY MOUTH TWICE A DAY clindamycin clindamycin No clindamyci [facility] 2 % vaginal 2 % vaginal n 2 % Family cream cream vaginal Practic cream e clonidine clonidine No clonidine [facility] HCl 0.1 mg HCl 0.1 mg HCl 0.1 mg Family tablet TAKE tablet TAKE tablet Practic 1 TABLET BY 1 TABLET BY TAKE 1 e MOUTH 3 MOUTH 3 TABLET BY TIMES A DAY TIMES A DAY MOUTH 3 TIMES A DAY CoQ-10 200 CoQ-10 200 No CoQ-10 200 [facility] mg mg mg Family Practic e Estring 2 Estring 2 No Estring 2 Village mg (7.5 mg (7.5 mg (7.5 Family mcg/24 mcg/24 mcg/24 Practic hour) hour) hour) e vaginal vaginal vaginal ring UISE ring UISE ring UISE DIRECTED DIRECTED DIRECTED ezetimibe ezetimibe No ezetimibe [facility] 10 mg 10 mg 10 mg Family tablet TAKE tablet TAKE tablet Practic 1 TABLET BY 1 TABLET BY TAKE 1 e MOUTH EVERY MOUTH EVERY TABLET BY DAY DAY MOUTH EVERY DAY fluconazole fluconazole No fluconazol [facility] 150 mg 150 mg e 150 mg Family tablet 1 tablet 1 tablet 1 Pra ctic TABLET TABLET TABLET e ORALLY NOW, ORALLY NOW, ORALLY THEN AGAIN THEN AGAIN NOW, THEN IN 72 HOURS IN 72 HOURS AGAIN IN 4 DAY(S) 4 DAY(S) 72 HOURS 4 DAY(S) furosemide furosemide No furosemide [facility] 20 mg 20 mg 20 mg Family tablet TAKE tablet TAKE tablet Practic 1 TABLET BY 1 TABLET BY TAKE 1 e MOUTH EVERY MOUTH EVERY TABLET BY DAY DAY MOUTH EVERY DAY gabapentin gabapentin No gabapentin [facility] 300 mg 300 mg 300 mg Family capsule capsule capsule Practi c TAKE 1 TAKE 1 TAKE 1 e CAPSULE BY CAPSULE BY CAPSULE BY MOUTH THREE MOUTH THREE MOUTH TIMES A DAY TIMES A DAY THREE TIMES A DAY hydralazine hydralazine No hydralazin [facility] 25 mg 25 mg e 25 mg Family tablet TAKE tablet TAKE tablet Practic 1 TABLET BY 1 TABLET BY TAKE 1 e MOUTH THREE MOUTH THREE TABLET BY TIMES A DAY TIMES A DAY MOUTH THREE TIMES A DAY hydrocodone hydrocodone No hydrocodon [facility] 5 5 e 5 Family mg-acetamin mg-acetamin mg-acetami Practic ophen 325 ophen 325 nophen 325 e mg tablet mg tablet mg tablet TAKE 1 TAKE 1 TAKE 1 TABLET BY TABLET BY TABLET BY MOUTH EVERY MOUTH EVERY MOUTH 6 HOURS 6 HOURS EVERY 6 NEEDED NEEDED HOURS NEEDED [facility] No [facility] XR 5 XR 5 XR 5 Family mg-1,000 mg mg-1,000 mg mg-1,000 Practic tablet, tablet, mg tablet, e extended extended extended release release release TAKE 1 TAKE 1 TAKE 1 TABLET BY TABLET BY TABLET BY MOUTH EVERY MOUTH EVERY MOUTH DAY IN THE DAY IN THE EVERY DAY MORNING MORNING IN THE MORNING lisinopril lisinopril No lisinopril [facility] 20 mg 20 mg 20 mg Family tablet TAKE tablet TAKE tablet Practic 2 TABLETS 2 TABLETS TAKE 2 e BY MOUTH BY MOUTH TABLETS BY EVERY DAY EVERY DAY MOUTH EVERY DAY Livalo 4 mg Livalo 4 mg No Livalo 4 Village tablet TAKE tablet TAKE mg tablet Family 1 TABLET BY 1 TABLET BY TAKE 1 Practic MOUTH MOUTH TABLET BY e EVERYDAY AT EVERYDAY AT MOUTH BEDTIME BEDTIME EVERYDAY AT BEDTIME Miralax Miralax No Miralax [facility] Pract[facility] e mupirocin 2 mupirocin 2 No mupirocin [facility] % topical % topical 2 % Famil y ointment ointment topical Prac tic ointment e nifedipine nifedipine No nifedipine [facility] ER 30 mg ER 30 mg ER 30 mg Fam gail tablet,exte tablet,exte tablet,ext Practic nded nded ended e release release release TAKE 1 TAKE 1 TAKE 1 TABLET BY TABLET BY TABLET BY MOUTH EVERY MOUTH EVERY MOUTH DAY DAY EVERY DAY Novolog Novolog No Novolog [facility] Flexpen Flexpen Flexpen Family U-100 U-100 U-100 Practic Insulin Insulin Insulin e aspart 100 aspart 100 aspart 100 unit/mL (3 unit/mL (3 unit/mL (3 mL) mL) mL) subcutaneou subcutaneou subcutaneo s INJECT s INJECT us INJECT BEFORE BEFORE BEFORE MEALS FOR MEALS FOR MEALS FOR GLUCOSE GLUCOSE GLUCOSE >200 USING >200 USING >200 USING CF 1:30 TDD CF 1:30 TDD CF 1:30 50 50 TDD 50 nystatin-tr nystatin-tr No nystatin-t [facility] iamcinolone iamcinolone riamcinolo Family 100,000 100,000 ne 100,000 Pra ctic unit/g-0.1 unit/g-0.1 unit/g-0.1 e % topical % topical % topical cream APPLY cream APPLY cream 1 1 APPLY 1 APPLICATION APPLICATION APPLICATIO TO AFFECTED TO AFFECTED N TO AREA AREA AFFECTED EXTERNALLY EXTERNALLY AREA TWICE A DAY TWICE A DAY EXTERNALLY FOR 30 DAYS FOR 30 DAYS TWICE A DAY FOR 30 DAYS omeprazole omeprazole No omeprazole [facility] 20 mg 20 mg 20 mg Family capsule,del capsule,del capsule,de Practic ayed ayed layed e release release release Premarin Premarin No Premarin Perry benny 0.625 0.625 0.625 Family mg/gram mg/gram mg/gram Practi c vaginal vaginal vaginal e cream cream cream INSERT 0.5 INSERT 0.5 INSERT 0.5 GM GM GM DIRECTED DIRECTED DIRECTED WITH WITH WITH APPLICATOR APPLICATOR APPLICATOR VAGINALLY VAGINALLY VAGINALLY THREE TIMES THREE TIMES THREE A WEEK FOR A WEEK FOR TIMES A 30 DAYS 30 DAYS WEEK FOR 30 DAYS Soliqua Soliqua No Soliqua [facility] 100/33 100 100/33 100 100/33 100 Family unit-33 unit-33 unit-33 Practi c mcg/mL mcg/mL mcg/mL e subcutaneou subcutaneou subcutaneo s insulin s insulin us insulin pen INJECT pen INJECT pen INJECT 36 UNITS 36 UNITS 36 UNITS SUBCUTANEOU SUBCUTANEOU SUBCUTANEO SLY IN THE SLY IN THE USLY IN MORNING MORNING THE INCREASE INCREASE MORNING DIRECTED DIRECTED INCREASE DIRECTED valsartan valsartan No valsartan [facility] 320 mg 320 mg 320 mg Family tablet TAKE tablet TAKE tablet Practic 1 TABLET BY 1 TABLET BY TAKE 1 e MOUTH EVERY MOUTH EVERY TABLET BY DAY DAY MOUTH EVERY DAY Vitamin D3 Vitamin D3 No Vitamin D3 [facility] Practic e Accu-Chek Accu-Chek No Accu-Chek [facility] Fior Meter Fior Meter Fior [facility] Meter Practic e Accu-Chek Accu-Chek No Accu-Chek [facility] Fior Plus Fior Plus Fior Plus Family test strips test strips test P ractic TEST 3 TEST 3 strips e TIMES A DAY TIMES A DAY TEST 3 DIRECTED DIRECTED TIMES A DAY DIRECTED Accu-Chek Accu-Chek No Accu-Chek [facility] Fastclix Fastclix Fastclix Fam gail Lancet Drum Lancet Drum Lancet Practic USE USE Drum USE e DIRECTED 3 DIRECTED 3 TIMES DAILY TIMES DAILY DIRECTED 3 TIMES DAILY Accu-Chek Accu-Chek No Accu-Chek [facility] FastClix FastClix FastClix Fam gail Lancing Lancing Lancing Practi c Device Device Device e acetaminoph acetaminoph No acetaminop [facility] en 300 en 300 hen 300 Family mg-codeine mg-codeine mg-codeine Practic 60 mg 60 mg 60 mg e tablet TAKE tablet TAKE tablet 1 TABLET BY 1 TABLET BY TAKE 1 MOUTH EVERY MOUTH EVERY TABLET BY 6 HOURS 6 HOURS MOUTH NEEDED NEEDED EVERY 6 HOURS NEEDED acyclovir acyclovir No acyclovir [facility] 800 mg 800 mg 800 mg Family tablet tablet tablet Practic e alprazolam alprazolam No alprazolam [facility] 0.25 mg 0.25 mg 0.25 mg Family tablet TAKE tablet TAKE tablet Practic 1 TO 2 1 TO 2 TAKE 1 TO e TABLETS BY TABLETS BY 2 TABLETS MOUTH PRIOR MOUTH PRIOR BY MOUTH TO CT TO CT PRIOR TO SCAN/PET SCAN/PET CT SCAN SCAN SCAN/PET SCAN aspirin 81 aspirin 81 No 1 Q1D aspirin 81 [facility] mg mg mg Family tablet,noam tablet,noam tablet,del Practic yed release yed release ayed e Take 1 Take 1 release tablet tablet Take 1 every day every day tablet by oral by oral every day route as route as by oral directed. directed. route as directed. BD Shaina 2nd BD Shaina 2nd No BD Shaina [facility] Gen Pen Gen Pen 2nd Gen Family Needle 32 Needle 32 Pen Needle Practic gauge x gauge x 32 gauge x e 5/32" USE 5/32" USE 5/32" USE DIRECTED DIRECTED 4 TIMES 4 TIMES DIRECTED 4 DAILY DAILY TIMES DAILY budesonide budesonide No budesonide [facility] 1 mg/2 mL 1 mg/2 mL 1 mg/2 mL Family suspension suspension suspension Practic for for for e nebulizatio nebulizatio nebulizati n EMPTY 2 n EMPTY 2 on EMPTY 2 VIALS (4ML) VIALS (4ML) VIALS INTO INTO (4ML) INTO IRRIGATION IRRIGATION IRRIGATION SYSTEM, ADD SYSTEM, ADD SYSTEM, DISTILLED DISTILLED ADD WATER, WATER, DISTILLED IRRIGATE - IRRIGATE - WATER, ONCE TO ONCE TO IRRIGATE - TWICE DAILY TWICE DAILY ONCE TO TWICE DAILY carvedilol carvedilol No carvedilol [facility] 12.5 mg 12.5 mg 12.5 mg Family tablet TAKE tablet TAKE tablet Practic 1 TABLET BY 1 TABLET BY TAKE 1 e MOUTH TWICE MOUTH TWICE TABLET BY A DAY A DAY MOUTH TWICE A DAY cefixime cefixime No cefixime Perry benny 400 mg 400 mg 400 mg Family capsule capsule capsule Practi c EMPTY 1 EMPTY 1 EMPTY 1 e CAPSULE CAPSULE CAPSULE INTO INTO INTO IRRIGATION IRRIGATION IRRIGATION SYSTEM, ADD SYSTEM, ADD SYSTEM, DISTILLED DISTILLED ADD WATER, WATER, DISTILLED IRRIGATE - IRRIGATE - WATER, TWICE DAILY TWICE DAILY IRRIGATE - TWICE DAILY cinacalcet cinacalcet No cinacalcet [facility] 30 mg 30 mg 30 mg Family tablet TAKE tablet TAKE tablet Practic 1 TABLET BY 1 TABLET BY TAKE 1 e MOUTH TWICE MOUTH TWICE TABLET BY A DAY A DAY MOUTH TWICE A DAY clindamycin clindamycin No clindamyci [facility] 2 % vaginal 2 % vaginal n 2 % Family cream cream vaginal Practic cream e clonidine clonidine No clonidine [facility] HCl 0.1 mg HCl 0.1 mg HCl 0.1 mg Family tablet TAKE tablet TAKE tablet Practic 1 TABLET BY 1 TABLET BY TAKE 1 e MOUTH 3 MOUTH 3 TABLET BY TIMES A DAY TIMES A DAY MOUTH 3 TIMES A DAY CoQ-10 200 CoQ-10 200 No CoQ-10 200 [facility] mg mg mg Family Practic e Estring 2 Estring 2 No Estring 2 [facility] mg (7.5 mg (7.5 mg (7.5 Family mcg/24 mcg/24 mcg/24 Practic hour) hour) hour) e vaginal vaginal vaginal ring UISE ring UISE ring UISE DIRECTED DIRECTED DIRECTED ezetimibe ezetimibe No ezetimibe [facility] 10 mg 10 mg 10 mg Family tablet TAKE tablet TAKE tablet Practic 1 TABLET BY 1 TABLET BY TAKE 1 e MOUTH EVERY MOUTH EVERY TABLET BY DAY DAY MOUTH EVERY DAY fluconazole fluconazole No fluconazol [facility] 150 mg 150 mg e 150 mg Family tablet 1 tablet 1 tablet 1 Pra ctic TABLET TABLET TABLET e ORALLY NOW, ORALLY NOW, ORALLY THEN AGAIN THEN AGAIN NOW, THEN IN 72 HOURS IN 72 HOURS AGAIN IN 4 DAY(S) 4 DAY(S) 72 HOURS 4 DAY(S) furosemide furosemide No furosemide [facility] 20 mg 20 mg 20 mg Family tablet TAKE tablet TAKE tablet Practic 1 TABLET BY 1 TABLET BY TAKE 1 e MOUTH EVERY MOUTH EVERY TABLET BY DAY DAY MOUTH EVERY DAY gabapentin gabapentin No gabapentin [facility] 300 mg 300 mg 300 mg Family capsule capsule capsule Practi c TAKE 1 TAKE 1 TAKE 1 e CAPSULE BY CAPSULE BY CAPSULE BY MOUTH THREE MOUTH THREE MOUTH TIMES A DAY TIMES A DAY THREE TIMES A DAY hydralazine hydralazine No hydralazin [facility] 25 mg 25 mg e 25 mg Family tablet TAKE tablet TAKE tablet Practic 1 TABLET BY 1 TABLET BY TAKE 1 e MOUTH THREE MOUTH THREE TABLET BY TIMES A DAY TIMES A DAY MOUTH THREE TIMES A DAY hydrocodone hydrocodone No hydrocodon [facility] 5 5 e 5 Family mg-acetamin mg-acetamin mg-acetami Practic ophen 325 ophen 325 nophen 325 e mg tablet mg tablet mg tablet TAKE 1 TAKE 1 TAKE 1 TABLET BY TABLET BY TABLET BY MOUTH EVERY MOUTH EVERY MOUTH 6 HOURS 6 HOURS EVERY 6 NEEDED NEEDED HOURS NEEDED [facility] 1 Q1D [facility] XR 5 XR 5 XR 5 Family mg-1,000 mg mg-1,000 mg mg-1,000 Practic tablet, tablet, mg tablet, e extended extended extended release release release Take 1 Take 1 Take 1 tablet tablet tablet every day every day every day by oral by oral by oral route in route in route in the morning the morning the for 90 for 90 morning days. days. for 90 days. lisinopril lisinopril lisinopril [facility] 20 mg 20 mg 20 mg Family tablet TAKE tablet TAKE tablet Practic 2 TABLETS 2 TABLETS TAKE 2 e BY MOUTH BY MOUTH TABLETS BY EVERY DAY EVERY DAY MOUTH EVERY DAY Livalo 4 mg Livalo 4 mg No Livalo 4 [facility] tablet TAKE tablet TAKE mg tablet Family 1 TABLET BY 1 TABLET BY TAKE 1 Practic MOUTH MOUTH TABLET BY e EVERYDAY AT EVERYDAY AT MOUTH BEDTIME BEDTIME EVERYDAY AT BEDTIME Miralax Miralax No Miralax [facility] Family Practic e mupirocin 2 mupirocin 2 No mupirocin [facility] % topical % topical 2 % Famil y ointment ointment topical Prac tic ointment e nifedipine nifedipine No nifedipine [facility] ER 30 mg ER 30 mg ER 30 mg Fam gail tablet,exte tablet,exte tablet,ext Practic nded nded ended e release release release TAKE 1 TAKE 1 TAKE 1 TABLET BY TABLET BY TABLET BY MOUTH EVERY MOUTH EVERY MOUTH DAY DAY EVERY DAY Novolog Novolog No Novolog [facility] Flexpen Flexpen Flexpen Family U-100 U-100 U-100 Practic Insulin Insulin Insulin e aspart 100 aspart 100 aspart 100 unit/mL (3 unit/mL (3 unit/mL (3 mL) mL) mL) subcutaneou subcutaneou subcutaneo s INJECT s INJECT us INJECT BEFORE BEFORE BEFORE MEALS FOR MEALS FOR MEALS FOR GLUCOSE GLUCOSE GLUCOSE >200 USING >200 USING >200 USING CF 1:30 TDD CF 1:30 TDD CF 1:30 50 50 TDD 50 nystatin-tr nystatin-tr No nystatin-t [facility] iamcinolone iamcinolone riamcinolo Family 100,000 100,000 ne 100,000 Pra ctic unit/g-0.1 unit/g-0.1 unit/g-0.1 e % topical % topical % topical cream APPLY cream APPLY cream 1 1 APPLY 1 APPLICATION APPLICATION APPLICATIO TO AFFECTED TO AFFECTED N TO AREA AREA AFFECTED EXTERNALLY EXTERNALLY AREA TWICE A DAY TWICE A DAY EXTERNALLY FOR 30 DAYS FOR 30 DAYS TWICE A DAY FOR 30 DAYS omeprazole omeprazole No omeprazole [facility] 20 mg 20 mg 20 mg Family capsule,del capsule,del capsule,de Practic ayed ayed layed e release release release Premarin Premarin No Premarin Perry benny 0.625 0.625 0.625 Family mg/gram mg/gram mg/gram Practi c vaginal vaginal vaginal e cream cream cream INSERT 0.5 INSERT 0.5 INSERT 0.5 GM GM GM DIRECTED DIRECTED DIRECTED WITH WITH WITH APPLICATOR APPLICATOR APPLICATOR VAGINALLY VAGINALLY VAGINALLY THREE TIMES THREE TIMES THREE A WEEK FOR A WEEK FOR TIMES A 30 DAYS 30 DAYS WEEK FOR 30 DAYS Soliqua Soliqua No Soliqua [facility] 100/33 100 100/33 100 100/33 100 Family unit-33 unit-33 unit-33 Practi c mcg/mL mcg/mL mcg/mL e subcutaneou subcutaneou subcutaneo s insulin s insulin us insulin pen Give 36 pen Give 36 pen Give units in AM units in AM 36 units and and in AM and increase as increase as increase directed: directed: as TDD 60 TDD 60 directed: TDD 60 valsartan valsartan No valsartan [facility] 320 mg 320 mg 320 mg Family tablet TAKE tablet TAKE tablet Practic 1 TABLET BY 1 TABLET BY TAKE 1 e MOUTH EVERY MOUTH EVERY TABLET BY DAY DAY MOUTH EVERY DAY Vitamin D3 Vitamin D3 No Vitamin D3 [facility] Practic e Immunizations Ordered Immunization Filled Immunization Date Status Commen ts Source Name Name CARLOS ALBERTOID-19 mRNA, COVID-19 mRNA, 2020-07-19 Completed [facility] LNP-S, PF, 30 LNP-S, PF, 30 00:00:00 Practice mcg/0.3 mL dose mcg/0.3 mL dose ([employer]) ([employer]) COVID-19, mRNA, COVID-19, mRNA, 2020-07-19 Completed [facility] LNP-S, PF, 30 LNP-S, PF, 30 00:00:00 Practice mcg/0.3 mL dose mcg/0.3 mL dose ([employer]) ([employer]) COVID-19, mRNA, COVID-19, mRNA, 2020-07-19 Completed [facility] LNP-S, PF, 30 LNP-S, PF, 30 00:00:00 Practice mcg/0.3 mL dose mcg/0.3 mL dose ([employer]) ([employer]) PFIZER COVID-19 MRNA 2020-07-15 Completed [facility] 00:00:00 Hospital PFIZER COVID-19 MRNA 2020-06-23 Completed [facility] 00:00:00 Hospital influenza, influenza, 2020-03-27 Completed [facility] Family injectable, injectable, 00:00:00 Practice quadrivalent quadrivalent influenza, influenza, 2020-03-27 Completed [facility] Family injectable, injectable, 00:00:00 Practice quadrivalent quadrivalent influenza, influenza, 2020-03-27 Completed [facility] injectable, injectable, 00:00:00 Practice quadrivalent quadrivalent Vital Signs Vital Name Observation Time Observation Value Comments Source BP Diastolic 2022-05-23 77 mm[Hg] [facility] Family 00:00:00 Practice Height 2022-05-23 65 [in_i] [facility] Family 00:00:00 Practice BMI (Body Mass 2022-05-23 33.8 kg/m2 [facility] Famil y Index) 00:00:00 Practice BP Systolic 2022-05-23 156 mm[Hg] [facility] 00:00:00 Practice Body Weight 2022-05-23 203 [lb_av] [facility] 00:00:00 Practice BP Diastolic 2022-04-17 80 mm[Hg] [facility] Family 00:00:00 Practice Height 2022-04-17 65 [in_i] [facility] Family 00:00:00 Practice BMI (Body Mass 2022-04-17 34.8 kg/m2 [facility] Famil y Index) 00:00:00 Practice BP Systolic 2022-04-17 169 mm[Hg] [facility] 00:00:00 Practice Body Weight 2022-04-17 209 [lb_av] [facility] 00:00:00 Practice Height 2022-03-09 65 [in_i] [facility] 00:00:00 [facility] BP Diastolic 2022-02-01 82 mm[Hg] [facility] 00:00:00 Practice Height 2022-02-01 65 [in_i] [facility] 00:00:00 Practice BMI (Body Mass 2022-02-01 34.9 kg/m2 [facility]amil y Index) 00:00:00 Practice BP Systolic 2022-02-01 176 mm[Hg] [facility] 00:00:00 Practice Body Weight 2022-02-01 210 [lb_av] [facility] 00:00:00 Practice BP Diastolic 2021-12-23 78 mm[Hg] [facility] 00:00:00 Practice Height 2021-12-23 65 [in_i] [facility] 00:00:00 Practice BMI (Body Mass 2021-12-23 34.9 kg/m2 [facility]amil y Index) 00:00:00 Practice BP Systolic 2021-12-23 157 mm[Hg] [facility] 00:00:00 Practice Body Weight 2021-12-23 210 [lb_av] [facility] 00:00:00 Practice Body height 2021-11-28 165.1 cm [facility] 14:30:00 Body weight 2021-11-28 97.07 kg [facility] 14:30:00 BMI 2021-11-28 35.61 kg/m2 [facility] 14:30:00 Height 2021-11-23 65 [in_i] [facility] 00:00:00 [facility] BMI (Body Mass 2021-11-23 35.8 kg/m2 [facility]) 00:00:00 [facility] Body Weight 2021-11-23 215 [lb_av] [facility] 00:00:00 [facility] BP Diastolic 2021-10-04 81 mm[Hg] [facility] 00:00:00 Practice Height 2021-10-04 65 [in_i] [facility] 00:00:00 Practice BMI (Body Mass 2021-10-04 36.1 kg/m2 [facility]amil [facility] Index) 00:00:00 Practice BP Systolic 2021-10-04 154 mm[Hg] [facility] 00:00:00 Practice Body Weight 2021-10-04 217 [lb_av] [facility] 00:00:00 Practice BP Diastolic 2021-08-04 72 mm[Hg] [facility] 00:00:00 Practice Height 2021-08-04 65 [in_i] [facility] 00:00:00 Practice BMI (Body Mass 2021-08-04 37.3 kg/m2 [facility]amil [facility] Index) 00:00:00 Practice BP Systolic 2021-08-04 169 mm[Hg] [facility] 00:00:00 Practice Body Weight 2021-08-04 224 [lb_av] [facility] 00:00:00 Practice BP Diastolic 2021-04-15 87 mm[Hg] [facility] 00:00:00 Practice Height 2021-04-15 65 [in_i] [facility] 00:00:00 Practice BMI (Body Mass 2021-04-15 35.9 kg/m2 [facility]amil y Index) 00:00:00 Practice BP Systolic 2021-04-15 178 mm[Hg] [facility] 00:00:00 Practice Body Weight 2021-04-15 216 [lb_av] [facility] BMI (Body Mass 2021-01-20 34.7 kg/m2 [facility] 00:00:00 Practice BP Systolic 2021-01-20 134 mm[Hg] [facility] Body Weight 2021-01-20 208.8 [lb_av] [facility] 00:[facility]:00 Practice BP Diastolic 2021-01-20 81 mm[Hg] [facility] 00:[facility]:00 [facility] Height 2021-01-20 65 [in_i] [facility] 00:00:00 Practice BP Diastolic 2020-10-14 81 mm[Hg] [facility] 00:[facility]:00 [facility] Height 2020-10-14 65 [in_i] [facility] 00[facility]:00 [facility] BMI (Body Mass 2020-10-14 33.9 kg/m2 [facility] 00:00:00 Practice BP Systolic 2020-10-14 125 mm[Hg] [facility] 00:[facility]:00 [facility] Body Weight 2020-10-14 204 [lb_av] [facility] 00:[facility]:00 Practice BP Diastolic 2020-07-14 83 mm[Hg] [facility] 00:[facility]:00 [facility] Height 2020-07-14 65 [in_i] [facility] 00:[facility]:00 Practice BMI (Body Mass 2020-07-14 33.8 kg/m2 [facility] 00:00:00 Practice BP Systolic 2020-07-14 153 mm[Hg] [facility] 00:[facility]:00 Practice Body Weight 2020-07-14 203 [lb_av] [facility] 00:00:00 Practice BP Diastolic 2020-04-14 88 mm[Hg] [facility] 00:00:00 Practice Height 2020-04-14 65 [in_i] [facility] 00:00:00 Practice BMI (Body Mass 2020-04-14 33.6 kg/m2 [facility] 00:00:00 Practice BP Systolic 2020-04-14 130 mm[Hg] [facility] 00:[facility]:00 Practice Body Weight 2020-04-14 202 [lb_av] [facility] 00:[facility]:00 Practice Systolic blood 2020-01-26 144 mm[Hg] Location: [facility]; [facility] pressure 14:56:00 Position: Sitting Diastolic blood 2020-01-26 66 mm[Hg] [facility] 14:56:00 Position: Sitting Body height 2020-01-26 63 [in_us] [facility] 14:56:00 Weight 2020-01-26 205.25 [lb_av] [facility] 14:56:00 Body mass index 2020-01-26 36.36 kg/m2 [facility] (BMI) [Ratio] 14:56:00 Body temperature 2020-01-26 98.3 [degF] Method: [facility] 14:56:00 Temporal Heart Rate 2020-01-26 70 /min Location: R [facility] 14:56:00 Brachial Artery; Quality: Normal Respiratory rate 2020-01-26 16 /min Quality: Normal [facility] 14:56:00 Temperature Oral 2016-02-14 97.5 F [facility] rmann (F) 21:00:00 Heart Rate 2016-02-14 [facility] 21:00:00 Respitory Rate 2016-02-14 [facility] 21:00:00 Systolic (mm Hg) 2016-02-14 [facility] 21:00:00 Diastolic (mm Hg) 2016-02-14 [facility] ermann 21:00:00 Systolic (mm Hg) 2016-02-14 [facility] r[facility] 17:00:00 Diastolic (mm Hg) 2016-02-14 [facility] ermann 17:00:00 Respitory Rate 2016-02-14 [facility] [...] robert 09:00:00 Temperature Oral 2016-01-19 97.3 F [facility] Manolo rmann (F) 09:00:00 BMI Calculated 2016-01-11 [facility] 22:27:00 Weight 2016-01-11 Elvira Richard n 22:27:00 Height 2016-01-11 165.1 cm [...] robert 14:00:00 Temperature Oral 2012-10-06 96.3 F [facility] Manolo rmann (F) 08:33:00 Temperature Oral 2012-10-06 97.9 F [facility] Manolo rmann (F) 04:00:00 Temperature Oral 2012-10-05 97.6 F [facility] Manolo rmann (F) 09:05:00 Weight 2012-10-03 [facility] 23:01:00 Height 2012-10-03 165.1 cm Elvira Rodriguezan n 23:01:00 Heart Rate 2012-10-03 [facility] 14:28:00 Heart Rate 2012-10-01 [facility] 18:53:00 Height 2012-10-01 165.1 cm [facility] 18:53:00 Weight 2012-10-01 Elvira Richard n 18:53:00 Procedures Procedure Date / Time Performing Clinician Source Performed XR, hip + pelvis, 2022-03-09 00:00:00 Arlin perezdic unilateral, 4 or more Sports Med icine view Back Surgery 2016-01-17 00:00:00 Ramu lester Practice Knee Replacement 2014-08-16 00:00:00 [facility] Durga reynolds Practice Operation on Neck 2012-09-16 00:00:00 [facility] Gustavo myla Practice Repair of Perforated 2012-03-18 00:00:00 [facility] Colon Practice Colonoscopy 2010-06-18 00:00:00 [facility] Chas lester Practice Operation <sup>1</sup> [facility] kowalski Knee [facility] replacement<sup>1</sup> Operation<sup>2</sup> [facility] Plan of Care Planned Activity Planned Date Details Comments Source Future Scheduled Test 2022-07-13 SHINGLES VACCINES (1 [facility] 16:05:49 of 2) [code = SHINGLES VACCINES (1 of 2)] Future Scheduled Test 2022-07-13 COVID-19 VACCINE (3 - [facility] 16:05:49 Booster for Pfizer series) [code = COVID-19 VACCINE (3 - Booster for Pfizer series)] Future Scheduled Test 2022-07-13 INFLUENZA VACCINE [facility] 16:05:49 [code = INFLUENZA VACCINE] Future Scheduled Test 2022-07-13 65+ PNEUMOCOCCAL [facility] 16:05:49 VACCINE (2 - PCV) [code = 65+ PNEUMOCOCCAL VACCINE (2 - PCV)] Diagnostic Test 2022-05-23 glucose, fingerstick, [facility] Pending 00:00:00 blood [code = Practice glucose, fingerstick, blood] Future Appointment 2022-08-22 Carson Sheldon, Santi [facility] 10:15:[address]; Practice [address], [place] [address] Future Appointment 2022-08-21 Santi Patton [facility] 00:00:[address]; Practice [address], [place] [address] Instructions Arlin Orthoped ic Sports Medicine Encounters Start End Encounter Admission Attending Care Care Encounter Source Date/Time Date/Time Type Type Clinicians Facility Department ID 2020-10-23 Outpatient ISMA [facility] [id number] [place] 03:35:09 [facility] 2022-07-05 2022-07-05 Refill Stacie, 1.2.840.1 [id number] Methodi 00:00:00 00:00:[address] 3.430.2.7 Hospit a .3.440594 l .8 2022-06-11 2022-06-11 Refill [place], 1.2.840.1 [id number] Methodi 00:00:00 00:00:[address] 3.430.2.7 Hospit a .3.309755 l .8 2022-05-23 2022-05-23 Outpatient Daniel_T VFP VFP [id number] [address] [place] [address] 00:00:00 00:00:00 [id number] Family Practic e 2022-05-23 2022-05-23 Outpatient Daniel_T VFP VFP [id number] [address] [place] [address] 00:00:00 00:00:00 [id number] Family Practic e 2022-05-23 2022-05-23 Carson VFP [place] - [id number] V illage 00:00:00 00:00:00 [facility] PitoCharity - Practi nica WARD: [id number] [place] - e Shadow _HOU_[facility], [address], [place] [address] , Ph. 2022-05-09 2022-05-09 Orders [place], 1.2.840.1 [id number] Methodi 00:00:00 00:00:00 Only Lora BrianNick 62029.1.[address] 3.430.2.7 Hospit a .3.990250 l .8 2022-05-07 2022-05-07 Refill [place], 1.2.840.1 [id number] Methodi 00:00:00 00:00:[address] 3.430.2.7 Hospit a .3.105825 l .8 2022-04-17 2022-04-17 Outpatient Daniel_T VFP VFP [id number] [address] [place] [address] 00:00:00 00:00:00 [id number] Family Practic e 2022-04-17 2022-04-17 Crason VFP [place] - [id number] V illage 00:00:00 00:00:00 [facility] Family SheldonCharity - Matteo yousif MD: [id number] [place] - e Shadow VM_JUAN M_Roly [address], [address], [place] [address] , Ph. 2022-04-14 2022-04-14 Outpatient Pito[facility] [id number] [address] [place] [address] 00:00:00 00:00:00 [id number] Family Practic e 2022-04-10 2022-04-10 Orders [place], 1.2.840.1 [id number] Methodi 00:00:00 00:00:00 Only Lora Yee 31918.1.[address] 3.430.2.7 Hospit a .3.482348 l .8 2022-04-09 2022-04-09 Refill [place], 1.2.840.1 [id number] 3293 Methodi 00:00:00 00:00:[address] 3.430.2.7 Hospit a .3.112081 l .8 2022-03-09 2022-03-09 Outpatient FOG[facility] [place] 00:00:00 00:00:00 _Gato 304122 Orth ope dic Sports Medicin e 2022-03-09 2022-03-09 Nely Torres AO [place] - Ortho 2021 921 Arlin 00:00:00 00:00:00 Laura Andrews MD: [id number] FOG_Ofc dic [facility], [place] [address] , Ph. [phone] 2022-03-06 2022-03-06 Outpatient FOG_Elkousy AOSM AO 62 Arlin 00:00:00 00:00:00 _Gato [id number] Orth ope dic Sports Medicin e 2022-02-16 2022-02-16 Outpatient Pito_Lucie [facility] [id number] [address] [place] [address] 00:00:00 00:00:00 [id number] Family Practic e 2022-02-16 2022-02-16 Outpatient VFP VFP [id number] [facility] 00:00:00 00:00:00 [id number] Family Practic e 2022-02-06 2022-02-06 Outpatient Daniel_T VFP VFP [id number] 20 [facility] 00:00:00 00:00:00 [id number] Family Practic e 2022-02-01 2022-02-01 Outpatient Daniel_T VFP VFP [id number] 20 [facility] 00:00:00 00:00:00 [id number] Family Practic e 2022-02-01 2022-02-01 Carson VFP [place] - [id number] V illage 00:00:00 00:00:00 [facility] Family SheldonCharity - Pracedin yousif MD: [id number] VM_HOU_Shad e Shadow [facility], [facility] [address], [place] [address] , Ph. 2022-01-25 2022-01-25 Outpatient Daniel_T VFP VFP [id number] 10-05 [facility] 00:00:00 00:00:00 [id number] Family Practic e 2022-01-04 2022-01-04 Outpatient Daniel_T VFP VFP [id number] [facility] 00:00:00 00:00:00 [id number] Family Practic e 2021-12-29 2021-12-29 Outpatient FOG_Elkousy AOSM AO 623 [id number] Arlin 02:36:00 02:36:00 _Gato [id number] Orth ope dic Sports Medicin e 2021-12-29 2021-12-29 Roger Burk AOSM [place] - Ortho [id number] Arlin 00:00:00 00:00:00 MD Jewel: [place] - Orthope [address] FOG_Ofc dic [facility], [place] [address] , Ph. [phone] 2021-12-29 2021-12-29 Outpatient GARFIELD Holloway AO [id number] 4-0 00:00:00 00:00:00 Roger Burk [id number] 2021-12-24 2021-12-24 Outpatient FOG_Elkousy AOSM AOSM 623 2176- Arlin 02:19:00 02:19:00 _Gato 680279 Orth ope dic Sports Medicin e 2021-12-24 2021-12-24 Outpatient FOG_Elkousy AOSM AOSM 623 2176- Arlin 02:19:00 02:19:00 _Gato [id number] Orth ope dic Sports Medicin e 2021-12-23 2021-12-23 Outpatient Daniramiro_T [facility] [id number] 4-20 [facility] 10:31:00 10:31:00 [id number] Family Practic e 2021-12-23 2021-12-23 Carson VFP [place] - [id number] V illage 00:00:00 00:00:00 [facility] Family Pito, Medical - Practi nica MD: 58527 VM_JUAN M_Roly e Shadow [address], [address], [place] [address] , Ph. 2021-12-16 2021-12-16 Outpatient RAMIRO Castaneda, HCATO PAIN [id number] [facility] 10:15:00 10:15:00 Phillip 06 [facility] 2021-11-28 2021-11-28 Office MAGDALENA Wheeler 6400 1.2.508.515 [id number] [place] 10:30:00 10:50:33 Visit Joby GOLDBERG 350.1.13.58 [facility] [id number] 5 2021-11-28 2021-11-28 Outpatient FOG_Elkousy AOSM AOSM 623 [id number] Arlin 04:52:00 04:52:00 _Gato [id number] Orth ope dic Sports Medicin e 2021-11-24 2021-11-24 Outpatient FOG_Elkousy AOSM AOSM 623 2176- Arlin 11:55:00 11:55:00 _Gato 911978 Orth ope dic Sports Medicin e 2021-11-23 2021-11-23 Outpatient FOG_Elkousy AOSM AOSM 623 [id number] Arlin 01:50:00 01:50:00 _Gato 539521 Orth ope dic Sports Medicin e 2021-11-23 2021-11-23 Telephone Whitley Bryson [facility] 1.2.840. 114 [id number] [place] 00:00:00 00:00:00 Whitley BrysonBANNERSylvester 350.1.13.58 Health [facility] 9.2.7.2.686 [facility] [id number] 2 2021-11-23 2021-11-23 Roger Burk AOSM [place] - Ortho a 00:00:00 00:00:00 MD Jewel: Laura Maravilla - Orthopsylvester [address] [place] FOG_Ofc dic [employer], [employer] [address], Medicin [place], [facility] [address] , Ph. [phone] 2021-11-23 2021-11-23 Outpatient GARFIELD Holloway AOSM [id number] 00:00:00 00:00:00 Rafidonna Wm [id number] 2021-11-18 2021-11-18 Outpatient FOG_Elkousy AOSM AOSM [id number] Arlin 12:41:00 12:41:00 _Gato [id number] Orth ope dic Sports Medicin e 2021-11-18 2021-11-18 Outpatient FOG_Elkousy AOSM AOSM [id number] Arlin 12:41:00 12:41:00 _Gato 030365 Orth ope dic Sports Medicin e 2021-11-17 2021-11-17 Outpatient Daniel_T VFP P [id number] 4-20 [facility] 06:56:00 06:56:00 [id number] Family Practic e 2021-11-07 2021-11-07 Travel 1.2.840.1 1.2.125.627 [id number] Methodi 00:00:00 00:00:[address] 3.430.2.7 0.2.7.3.698 Ho spita .3.926615 084.8 l .8 2021-10-19 2021-10-19 Outpatient Daniel_T VFP VFP [id number] [address] [place] [address] 06:10:00 06:10:00 [id number] Family Practic e 2021-10-04 2021-10-04 Outpatient Daniel_T VFP VFP [id number] [address] [place] [address] 03:48:00 03:48:00 [id number] Family Practic e 2021-10-04 2021-10-04 Carson VFP [place] - [id number] V illage 00:00:00 00:00:00 [facility] Family Sheldon Medical - Practi nica MD: [id number] ANDREIA_JUAN M_Roly e Shadow ow [address] [facility], [address], [place] [address] , Ph. 2021-08-26 2021-08-26 Outpatient Daniel_T VFP VFP [id number] [address] [place] [address] 08:52:00 08:52:00 [id number] Family Practic e 2021-08-09 2021-08-09 Outpatient Daniel_T VFP VFP [id number] [address] [place] [address] 12:16:00 12:16:00 [id number] Family Practic e 2021-08-04 2021-08-04 Outpatient Daniel_T VFP VFP [id number] [address] [place] [address] 03:46:00 03:46:00 [id number] Family Practic e 2021-08-04 2021-08-04 Carson VFP [place] - [id number] V illage 00:00:00 00:00:00 [facility] Family Sheldon Medical - Practi nica MD: [id number] VM_JUAN M_Roly e Shadow ow [address] Morongo [facility], [address], [place] [address] , Ph. 2021-07-18 2021-07-18 Gwen Quinones, 1.2.840.1 [id number] Methodi 00:00:00 00:00:00 Only Lora Yee 66882.1.[address] 3.430.2.7 Hospit a .3.847333 l .8 2021-07-15 2021-07-15 Refill [place], 1.2.840.1 [id number] 6607 Methodi 00:00:00 00:00:[address] 3.430.2.7 Hospit a .3.163870 l .8 2021-07-13 2021-07-13 Orders [place], 1.2.840.1 [id number] Methodi 00:00:00 00:00:00 Only Lora Yee [address]4741.1.[address] 3.430.2.7 Hospit a .3.294963 l .8 2021-07-13 2021-07-13 Refill [place], 1.2.840.1 [id number] Methodi 00:00:00 00:00:[address] 3.430.2.7 Hospit a .3.139310 l .8 2021-06-22 2021-06-22 Outpatient Daniel_T VFP VFP [id number] [address] [place] [address] 02:42:00 02:42:00 [id number] Family Practic e 2021-05-23 2021-05-23 Outpatient Daniel_T VFP VFP [id number] [address] [place] [address] 06:17:00 06:17:00 [id number] Family Practic e 2021-05-23 2021-05-23 Outpatient Daniel_T VFP VFP [id number] [address] [place] [address] 06:17:00 06:17:00 [id number] Family Practic e 2021-04-15 2021-04-15 Outpatient Daniel_T VFP VFP [id number] [address] [place] [address] 01:48:00 01:48:00 [id number] Family Practic e 2021-04-15 2021-04-15 Carson VFP [place] - [id number] V illage 00:00:00 00:00:00 [facility] Family Sheldon, Charity - Pracedin yousif MD: 04609 VM_HOU_Shagabriel e Shadow [facility], [address], [place] [address] , Ph. 2021-02-24 2021-02-24 Outpatient Daniel_T VFP VFP [id number] [address] [place] [address] 03:30:00 03:30:00 [id number] Family Practic e 2021-01-22 2021-01-22 Outpatient Daniel_T VFP VFP [id number] [address] [place] [address] 09:37:00 09:37:00 [id number] Family Practic e 2021-01-20 2021-01-20 Outpatient Daniel_T VFP VFP [id number] [address] [place] [address] 06:26:00 06:26:00 [id number] Family Practic e 2021-01-20 2021-01-20 Carson VFP [place] - [id number] V illage 00:00:00 00:00:00 [facility] Family SheldonCharity - Matteo yousif MD: 05312 VM_HOU_Shagabriel e Shadow [facility], [address], [place] [address] , Ph. 2020-11-13 2020-11-13 Outpatient Daniel_T VFP VFP [id number] [address] [place] [address] 02:42:00 02:42:00 [id number] Family Practic e 2020-11-13 2020-11-13 Outpatient Daniel_T VFP VFP [id number] [address] [place] [address] 02:42:00 02:42:00 [id number] Family Practic e 2020-11-13 2020-11-13 Outpatient Daniel_T VFP VFP [id number] [address] [place] [address] 02:42:00 02:42:00 [id number] Family Practic e 2020-11-13 2020-11-13 Outpatient Daniel_T VFP VFP [id number] [address] [place] [address] 02:42:00 02:42:00 [id number] Family Practic e 2020-10-15 2020-10-15 Outpatient Daniel_T VFP VFP [id number] [address] [place] [address] 02:19:00 02:19:00 [id number] Family Practic e 2020-10-14 2020-10-14 Outpatient Daniel_T VFP VFP [id number] [address] [place] [address] 11:20:00 11:20:00 [id number] Family Practic e 2020-10-14 2020-10-14 Carson VFP [place] - [id number] V illage 00:00:00 00:00:00 [facility] Family SheldonCharity - Pracedin yousif MD: [id number] ANDREIA_JUAN M_Roly sylvester Shadow [facility], [address], [place] [address] , Ph. 2020-07-16 2020-07-16 Outpatient Daniel_T VFP VFP [id number] [address] [place] [address] 06:12:00 06:12:00 [id number] Family Practic e 2020-07-15 2020-07-15 Outpatient [facility] [id number] 455 [place] 00:00:00 00:00:[address] 2020-07-14 2020-07-14 Outpatient Daniel_T VFP VFP [id number] [address] [place] [address] 01:44:00 01:44:00 [id number] Family Practic e 2020-07-14 2020-07-14 Carson VFP [place] - [id number] V illage 00:00:00 00:00:00 [facility] Family SheldonCharity - Pracedin yousif MD: 40747 RONNIE_Roly sylvester Shadow [facility], [address], [place] [address] , Ph. 2020-07-13 2020-07-13 Outpatient Daniel_T VFP VFP [id number] [address] [place] [address] 06:05:00 06:05:00 [id number] Family Practic e 2020-06-23 2020-06-23 Outpatient [facility] [id number] [place] 00:00:00 00:00:[address] 2020-04-30 2020-04-30 Outpatient Daniel_T VFP VFP [id number] [address] [place] [address] 01:32:00 01:32:00 [id number] Family Practic e 2020-04-24 2020-04-24 Outpatient Daniel_T VFP VFP [id number] [address] [place] [address] 03:48:00 03:48:00 Family Practic e 2020-04-14 2020-04-14 Outpatient Daniel_T VFP VFP [id number] [address] [place] [address] 04:51:00 04:51:00 [id number] Family Practic e 2020-04-14 2020-04-14 Carson VFP [place] - [id number] V illage 00:00:00 00:00:00 [facility] PitoCharity - Matteo yousif MD: 02448 VM_HOU_Nicolas [facility], [address] [place] [address] , Ph. 2020-03-15 2020-03-15 Outpatient Pito_T VFP VFP [id number] 4-20 [facility] 10:19:00 10:19:00 [id number] Family Schuyler pennington 2020-01-26 2020-01-26 Appointphoebe ASHBY [facility] Cardiology [id number] [place] 15:15:00 15:15:00 t; MICHAEL ASHBY, [facility] Armin RODRIGUEZ [facility] Armin [place] 2019-12-03 2019-12-03 [facility] [id number] [address] [place] [address] 00:00:00 00:00:00 LORA [address] 2016-06-30 2016-06-30 Outpatient MHIE MHIE [id number] Memoria 13:00:00 13:00:00 09 sierra Butler 2016-06-30 2016-06-30 Outpatient MHIE MHIE [id number] Memoria 13:00:00 13:00:00 09 sierra Butler 2016-04-21 2016-04-21 Outpatient MHIE MHIE [id number] Memoria 13:30:00 13:30:00 07 sierra Butler 2016-04-21 2016-04-21 Outpatient MHIE MHIE [id number] Memoria 13:30:00 13:30:00 07 sierra Butler 2016-03-27 2016-03-27 Outpatient MHIE MHIE [id number] Memoria 11:30:00 11:30:00 08 sierra Butler 2016-03-27 2016-03-27 Outpatient MHIE MHIE [id number] Memoria 11:30:00 11:30:00 08 sierra Butler 2016-03-09 2016-03-09 Outpatient MHIE MHIE [id number] Memoria 11:00:00 11:00:00 06 sierra Butler 2016-03-09 2016-03-09 Outpatient MHIE MHIE [id number] Memoria 11:00:00 11:00:00 06 sierra Butler 2016-02-08 2016-02-15 Inpatient [facility]Flavo [facility] [id number] Memoria 15:51:00 01:30:00 r Luke 00 [facility] 2016-02-08 2016-02-15 Inpatient nullFlavo [facility] [id number] Memoria 15:51:00 01:30:00 r [place] 00 [facility] 2016-02-08 2016-02-14 Outpatient Riley Whyte [facility] [id number] 10:51:00 20:30:00 Jese 2016-02-08 2016-02-08 Outpatient IE SUKUMAR [id number] Memoria 07:30:00 07:30:00 05 sierra [place] 2016-02-08 2016-02-08 [facility] [id number] Memoria 07:30:00 07:30:00 05 sierra [place] 2016-01-11 2016-01-19 Inpatient [facility]Flavo [facility] [id number] Memoria 21:33:00 21:30:00 r Luke 08 [facility] 2016-01-11 2016-01-19 Inpatient [facility]Flavo [facility] [id number] Memoria 21:33:00 21:30:00 r [place] 08 [facility] 2016-01-11 2016-01-19 Outpatient Coreen [facility] [id number] 16:33:00 16:30:00 Jean Paul Quiroga 2016-01-17 2016-01-17 Outpatient [facility] [id number] Memoria 11:00:00 11:00:00 04 sierra RodriguezLuke 2016-01-17 2016-01-17 Outpatient [facility] [id number] Memoria 11:00:00 11:00:00 04 sierra Luke 2016-01-11 2016-01-11 Pre Admit [facility]Flavo [facility] [id number] Memoria 04:00:00 04:00:00 r Luke [address] [place] [address] 2016-01-11 2016-01-11 Pre Admit [facility]Flavo [facility] [id number] Memoria 04:00:00 04:00:00 r [place] [address] [place] [address] 2016-01-10 2016-01-10 Outpatient Ranjit Drew [facility] [id number] 23:00:00 23:00:00 Zhiheng Eduar 2015-12-15 2015-12-15 Outpatient MHIE MHIE [id number] Memoria 14:00:00 14:00:00 03 sierra Luke 2015-12-15 2015-12-15 Outpatient MHIE MHIE [id number] Memoria 14:00:00 14:00:00 03 sierra Luke 2015-12-15 2015-12-15 Outpatient MHIE MHIE [id number] Memoria 13:30:00 13:30:00 02 sierra Luke 2015-12-15 2015-12-15 Outpatient MHIE MHIE [id number] Memoria 13:30:00 13:30:00 02 sierra Luke 2015-12-15 2015-12-15 Outpatient MHIE MHIE [id number] Memoria 11:00:00 11:00:00 01 sierra [place] 2015-12-15 2015-12-15 Outpatient MHIE MHIE [id number] Memoria 11:00:00 11:00:00 01 sierra Luke 2015-12-02 2015-12-02 Outpatient MHIE IE [id number] Memoria 11:00:00 11:00:00 00 sierra [place] 2015-12-02 2015-12-02 Outpatient MHIE MHIE [id number] Memoria 11:00:00 11:00:00 00 sierra Luke 2014-03-25 2014-03-26 Outpt Diag nullFlavo [facility] [id number] Memoria 14:57:00 04:59:00 Services r Outpatient 04 l Imaging Luke Luke 2014-03-25 2014-03-26 Outpt Diag nullFlavo [facility] [id number] Memoria 14:57:00 04:59:00 Services r Outpatient 04 l Imaging [place] Luke 2014-03-25 2014-03-25 Outpatient William, 2.16.840. 2.16.840.1. [id number] 09:57:00 23:59:00 Keron 1.610091. 080662.3.61 04 Gabbie [id number] 64 0320-04-02 2013-09-18 Outpt Diag nullFlavo [facility] [id number] Memoria 16:29:00 04:59:00 Services r Outpatient _[id number] l Imaging 9 [facility] 2013-09-17 2013-09-18 Outpt Diag nullFlavo [facility] [id number] Memoria 16:29:00 04:59:00 Services r Outpatient [id number] l Imaging 9 [facility] 2013-09-17 2013-09-17 Outpatient William, 2.16.840. 2.16.840.1. [id number] 11:29:00 23:59:00 Keron [id number] Gabbie [id number] 6762-04-18 2012-10-06 Inpatient nullFlavo [facility] [id number] Memoria 08:38:00 12:00:00 r Medical 00 [facility] 2012-10-03 2012-10-06 Inpatient nullFlavo [facility] [id number] Memoria 08:38:00 12:00:00 r Medical 00 l [facility] Results Test Description Test Time Test Comments Results Result Comments Source Glucose [Mass/volume] in Capillary blood 2022-05-23 12:12:08 Test Item Value Reference Range Interpretation Comme nts Blood Glucose: mg/dl (test code = Blood Glucose: mg/dl) [facility] in Capillary [id number] 11:16:24 Test Item Value Reference Range Interpretation Comments Blood Glucose: mg/dl (test code = Blood 286 Glucose: mg/dl) [facility] in Capillary [id number] 14:52:13 Test Item Value Reference Range Interpretation Comments Blood Glucose: mg/dl (test code = Blood 243 Glucose: mg/dl) [facility] Practice- XR FLUORO FOR SPINE [id number] 18:07:00 [facility] : 1940 Sex: F Patient Name: AMANDA LOVE Unit No: [id number] EXAMS: CPT CODE: [id number] XR FLUORO FOR SPINE INJ [id number] LUMBAR EPIRADICULAR INJECTION REFERRAL PHYSICIAN: Dr. Madrid PREOPERATIVE DIAGNOSIS: Lumbar Radiculitis POSTOPERATIVE DIAGNOSIS: Same as above PROCEDURES PERFORMED: Fluoroscopically guided needle localization of the right L3, L4, L5 spinal nerves with transforaminal epidurograms and epidural injection of local anesthetic and steroid. FINDINGS: Preinjection VAS 6/10. Postinjection VAS 0/10. Steroid response pending follow-up. ESTIMATED BLOOD LOSS: Minimal ANESTHESIA: TIVA COMPLICATIONS: None DETAILS OF PROCEDURE: After obtaining stable vital signs, informed consent and IV access, with no co ntraindications, the patient was taken to the operating room and placed in a prone position with allextremities padded and appropriate monitors placed. The patient was sterilely prepped and draped over the lumbosacral spine. Using fluoroscopic visualization the insertion sites were marked for paravertebral approaches and using standard technique, a 25 gauge needle was advanced to the base of each pedicle without paresthesias. Isovue-300 contrast 0.2 mL of was injected at each level incrementally with frequent negative aspirations to produce each epidurogram. There were no signs of intravascular orintrathecal uptake. Bupivicaine 0.75% 0.25 mL with lidocaine 4% 0.5 mL and Decadron 5 mg was then incrementally injected with frequent negative aspirations at each level and again there were no signs of intravascular or intrathecal uptake. The needles were removed and the patient was taken to the PACUin good condition. Image: Image 1 Image: Image 2 at 1807 Reported and signed by: BRANDIN CLARK MD CC: Phillip Castaneda MD Technologist: BRANDT (RT.R) Transcribed D/ (9996) Vick.[facility] NAME: AMANDA LOVE [address] [facility] PHYS: Phillip Ladd MD [place], [place] [address] : 1940 AGE: 81 SEX: F LOC: CHON PHONE #: [phone] EXAM DATE: 12/16/2021 STATUS: [facility] FAX #: [phone] RAD #: [id number] D/C DT PAGE 1 Signed Report Patient Name: AMANDA LOVEUncj No: [id number] EXAMS: CPT CODE: [id number] XR FLUORO FOR SPINE INJ [id number] (Continued) Orig Print D/T: S: 12/23/2021 (1809) [facility] NAME: AMANDA LOVE [address] [facility] PHYS: Phillip Ladd MD [place], [place] [address] : 1940 AGE: 81 SEX: F : CHON PHONE #: [phone] EXAM DATE: 12/16/2021 STATUS: [facility] FAX #: [phone] RAD #: [id number] D/C DT PAGE 2 Signed ReportGlucose [Mass/volume] in Capillary [id number] 08:37:03 Test Item Value Reference Range Interpretation Comments Blood Glucose: mg/dl (test code = Blood 220 Glucose: mg/dl) [facility]LfjjzhsmJCSNRO4500-62-23 14:01:00 Test Item Value Reference Range Interpretation Comments GLUBED (test code = GLUBED) 144 mg/dL 60-125 H [id number] 12:03:00 Test Item Value Reference Range Interpretation Comments GLUBED (test code = GLUBED) 138 mg/dL 60-125 H Hemoglobin A1c measurement device [id number] 14:11:19 Test Item Value Reference Range Interpretation Comments Hemoglobin A1C Fingerstick: (test code 7.2 = Hemoglobin A1C Fingerstick:) [facility] [[facility]/volume] in Capillary [id number] 14:04:17 Test Item Value Reference Range Interpretation Comments Blood Glucose: mg/dl (test code = Blood 190 Glucose: mg/dl) [facility] [Mass/volume] in Capillary [id number] 13:54:58 Test Item Value Reference Range Interpretation Comments Blood Glucose: mg/dl (test code = Blood 167 Glucose: mg/dl) [facility] CenterHem[facility] A1c measurement [facility] [id number] 12:17:07 Test Item Value Reference Range Interpretation Comments Hemoglobin A1C Fingerstick: (test code 8.4 = Hemoglobin A1C Fingerstick:) [facility] CenterGl[facility] [Mass/volume] in Capillary olmfg2871-11-43 12:14:41 Test Item Value Reference Range Interpretation Comments Blood Glucose: mg/dl (test code = Blood 212 Glucose: mg/dl) [facility]2016-08-01 09:05:00 Test Item Value Reference Range Interpretation Comments Magnesium Lvl (test code = Magnesium 1.8 1.8-2.4 Lvl) [facility]2016-08-01 09:05:00 Test Item Value Reference Range Interpretation Comments Phosphorus (test code = Phosphorus) 2.4 2.5-4.5 [facility]2016-08-01 09:05:00 Test Item Value Reference Range Interpretation Comments CO2 (test code = CO2) 30 24-32 [facility]2016-08-01 09:05:00 Test Item Value Reference Range Interpretation Comments Glucose Lvl (test code = Glucose Lvl) 240 70-99 [facility]2016-08-01 09:05:00 Test Item Value Reference Range Interpretation Comments Creatinine Lvl (test code = Creatinine 0.80 0.50-1.40 Lvl) [facility]2016-08-01 09:05:00 Test Item Value Reference Range Interpretation Comments BUN (test code = BUN) 20 7-22 [facility]2016-08-01 09:05:00 Test Item Value Reference Range Interpretation Comments eGFR (test code = eGFR) 73 [facility]2016-08-01 09:05:00 Test Item Value Reference Range Interpretation Comments Albumin Lvl (test code = Albumin Lvl) 2.8 3.5-5.0 [facility]2016-08-01 09:05:00 Test Item Value Reference Range Interpretation Comments Calcium Lvl (test code = Calcium Lvl) 10.5 8.5-10.5 [facility]2016-08-01 09:05:00 Test Item Value Reference Range Interpretation Comments Potassium Lvl (test code = Potassium 4.3 3.5-5.1 Lvl) [facility]2016-08-01 09:05:00 Test Item Value Reference Range Interpretation Comments Chloride Lvl (test code = Chloride Lvl) 107 95-109 [facility]2016-08-01 09:05:00 Test Item Value Reference Range Interpretation Comments Sodium Lvl (test code = Sodium Lvl) 143 135-145 [facility]2016-08-01 09:05:00 Test Item Value Reference Range Interpretation Comments AGAP (test code = AGAP) 10.3 10.0-20.0 [facility] PasoDuqhordBMCRHHYSMM0320-12-04 09:05:00 Test Item Value Reference Range Interpretation Comments Lymphocytes # (test code = Lymphocytes 1.3 1.0-5.5 #) [facility] PasoCbqkyhcWDQAEOSFRD8747-44-06 09:05:00 Test Item Value Reference Range Interpretation Comments Segs-Bands # (test code = Segs-Bands #) 4.4 1.5-8.1 [facility] PasoMdbnnsiRXYKYSMQTW6592-48-35 09:05:00 Test Item Value Reference Range Interpretation Comments Eosinophils # (test code 0.3 See_Comment [A utomated message] The = Eosinophils #) system wh h generated this result tra nsmitted reference range : <=0.5. The reference r leatha was not used to int erpret this result as normal/abnormal . [facility] PasoVpaiggoDMWGOPAGGQ7244-28-18 09:05:00 Test Item Value Reference Range Interpretation Comments Monocytes # (test code 0.6 See_Comment [Aut omated message] The = Monocytes #) system which generated this result tra nsmitted reference range : <=0.8. The reference r leatha was not used to int erpret this result as normal/abnormal . [facility] PasoKonzojiDEQCHTSKFL7333-23-15 09:05:00 Test Item Value Reference Range Interpretation Comments Basophils (test code = 0.5 See_Comment [Aut omated message] The Basophils) system which ge nerated this result tra nsmitted reference range : <=1.0. The reference r leatha was not used to int erpret this result as normal/abnormal . [facility] PasoYzipjokQULSZHXONL3080-10-86 09:05:00 Test Item Value Reference Range Interpretation Comments Eosinophils (test code = 4.9 See_Comment [A utomated message] The Eosinophils) system which ge nerated this result tra nsmitted reference range : <=4.0. The reference r leatha was not used to int erpret this result as normal/abnormal . [facility] PasoAwidtcvDRZZMUIBEG3140-10-96 09:05:00 Test Item Value Reference Range Interpretation Comments Monocytes (test code = Monocytes) 9.1 2.0-12.0 [facility] PasoKtdxaodSCOSVHXKQP2733-44-44 09:05:00 Test Item Value Reference Range Interpretation Comments Lymphocytes (test code = Lymphocytes) 18.9 20.0-40.0 [facility] PasoQcwggaeHYNPUISWGN3477-67-07 09:05:00 Test Item Value Reference Range Interpretation Comments Segs (test code = Segs) 66.6 45.0-75.0 [facility] PasoZdmbaglAGTKATDISE4254-81-71 09:05:00 Test Item Value Reference Range Interpretation Comments MPV (test code = MPV) 9.4 7.4-10.4 [facility] PasoCuxczehCGTZZXFDYK1205-90-11 09:05:00 Test Item Value Reference Range Interpretation Comments Platelet (test code = Platelet) 168 133-450 [facility] PasoFgyuxxjOUXHDOWOPK0840-94-19 09:05:00 Test Item Value Reference Range Interpretation Comments RDW (test code = RDW) 13.4 11.5-14.5 [facility] PasoVtakidiMJMROLVBFR5398-34-51 09:05:00 Test Item Value Reference Range Interpretation Comments MCHC (test code = MCHC) 32.8 32.0-36.0 [facility] PasoVjnwweiBITHUQVRCS2140-40-02 09:05:00 Test Item Value Reference Range Interpretation Comments MCH (test code = MCH) 30.7 pg 27.0-31.0 [facility] PasoGgqpykvGIAEOFHPGS8615-31-65 09:05:00 Test Item Value Reference Range Interpretation Comments MCV (test code = MCV) 93.6 80.0-98.0 [facility] PasoPpsbdufVLARTWXPZZ6675-76-55 09:05:00 Test Item Value Reference Range Interpretation Comments WBC (test code = WBC) 6.6 3.7-10.4 [facility] PasoLqxuernGKIVZEBEWM1825-90-60 09:05:00 Test Item Value Reference Range Interpretation Comments Hct (test code = Hct) 41.0 36.0-48.0 [facility]UogpjboKDYLTBSHVC1852-40-09 09:05:00 Test Item Value Reference Range Interpretation Comments Hgb (test code = Hgb) 13.4 12.0-16.0 [facility] HospitalTlgwsreFLAELIEDKO2533-92-69 09:05:00 Test Item Value Reference Range Interpretation Comments RBC (test code = RBC) 4.38 4.20-5.40 [facility] [place] MBFMXXQKT6311-69-83 09:05:00 Test Item Value Reference Range Interpretation Comments Hgb A1C (test code = Hgb A1C) 10.3 [facility] HQJRP6088-72-95 09:05:00 Test Item Value Reference Range Interpretation Comments Magnesium Lvl (test code = Magnesium 1.8 1.8-2.4 Lvl) [facility]2016-08-01 09:05:00 Test Item Value Reference Range Interpretation Comments Phosphorus (test code = Phosphorus) 2.4 2.5-4.5 [facility]2016-08-01 09:05:00 Test Item Value Reference Range Interpretation Comments CO2 (test code = CO2) 30 24-32 [facility]2016-08-01 09:05:00 Test Item Value Reference Range Interpretation Comments Glucose Lvl (test code = Glucose Lvl) 240 70-99 [facility]2016-08-01 09:05:00 Test Item Value Reference Range Interpretation Comments Creatinine Lvl (test code = Creatinine 0.80 0.50-1.40 Lvl) [facility]2016-08-01 09:05:00 Test Item Value Reference Range Interpretation Comments BUN (test code = BUN) 20 7-22 [facility]2016-08-01 09:05:00 Test Item Value Reference Range Interpretation Comments eGFR (test code = eGFR) 73 [facility]2016-08-01 09:05:00 Test Item Value Reference Range Interpretation Comments Albumin Lvl (test code = Albumin Lvl) 2.8 3.5-5.0 [facility]2016-08-01 09:05:00 Test Item Value Reference Range Interpretation Comments Calcium Lvl (test code = Calcium Lvl) 10.5 8.5-10.5 [facility]2016-08-01 09:05:00 Test Item Value Reference Range Interpretation Comments Potassium Lvl (test code = Potassium 4.3 3.5-5.1 Lvl) [facility]2016-08-01 09:05:00 Test Item Value Reference Range Interpretation Comments Chloride Lvl (test code = Chloride Lvl) 107 95-109 [facility]2016-08-01 09:05:00 Test Item Value Reference Range Interpretation Comments Sodium Lvl (test code = Sodium Lvl) 143 135-145 [facility]2016-08-01 09:05:00 Test Item Value Reference Range Interpretation Comments AGAP (test code = AGAP) 10.3 10.0-20.0 [facility] PasoJgepsldRWDUXCVGNL1155-62-30 09:05:00 Test Item Value Reference Range Interpretation Comments Lymphocytes # (test code = Lymphocytes 1.3 1.0-5.5 #) [facility] PasoRipwqmdVMZNRYJCIO5465-36-49 09:05:00 Test Item Value Reference Range Interpretation Comments Segs-Bands # (test code = Segs-Bands #) 4.4 1.5-8.1 [facility] PasoNuxdfraWWQPZTDHTO4257-49-73 09:05:00 Test Item Value Reference Range Interpretation Comments Eosinophils # (test code 0.3 See_Comment [A utomated message] The = Eosinophils #) system whic h generated this result tra nsmitted reference range : <=0.5. The reference r leatha was not used to int erpret this result as normal/abnormal . [facility] PasoCvwympeUNIUQHWVAQ8434-82-13 09:05:00 Test Item Value Reference Range Interpretation Comments Monocytes # (test code 0.6 See_Comment [Aut omated message] The = Monocytes #) system which generated this result tra nsmitted reference range : <=0.8. The reference r leatha was not used to int erpret this result as normal/abnormal . [facility] PasoVfykrjeAKBGJQNZLQ2539-28-71 09:05:00 Test Item Value Reference Range Interpretation Comments Basophils (test code = 0.5 See_Comment [Aut omated message] The Basophils) system which ge nerated this result tra nsmitted reference range : <=1.0. The reference r leatha was not used to int erpret this result as normal/abnormal . [facility] PasoNdrnlyfOVICCVFHME7662-09-27 09:05:00 Test Item Value Reference Range Interpretation Comments Eosinophils (test code = 4.9 See_Comment [A utomated message] The Eosinophils) system which ge nerated this result tra nsmitted reference range : <=4.0. The reference r leatha was not used to int erpret this result as normal/abnormal . [facility] PasoZyedcwbPJIFTRLZLE0115-07-71 09:05:00 Test Item Value Reference Range Interpretation Comments Monocytes (test code = Monocytes) 9.1 2.0-12.0 [facility] PasoNmaxbzcNHAQYAUAQB0815-20-29 09:05:00 Test Item Value Reference Range Interpretation Comments Lymphocytes (test code = Lymphocytes) 18.9 20.0-40.0 [facility] PasoFuxmgkgXCTNVCOZLR7306-41-52 09:05:00 Test Item Value Reference Range Interpretation Comments Segs (test code = Segs) 66.6 45.0-75.0 [facility] PasoTnbkuefLJRZZGYWDK7506-44-71 09:05:00 Test Item Value Reference Range Interpretation Comments MPV (test code = MPV) 9.4 7.4-10.4 [facility] PasoQrvpjbfOPHKVMCURT2675-74-77 09:05:00 Test Item Value Reference Range Interpretation Comments Platelet (test code = Platelet) 168 133-450 [facility] PasoNpuplcmFNYDERQCWG5832-87-14 09:05:00 Test Item Value Reference Range Interpretation Comments RDW (test code = RDW) 13.4 11.5-14.5 [facility] PasoTfilkewECGQACEAFX8874-76-62 09:05:00 Test Item Value Reference Range Interpretation Comments MCHC (test code = MCHC) 32.8 32.0-36.0 [facility] PasoWxwfnczWXKQUABNJT5539-19-32 09:05:00 Test Item Value Reference Range Interpretation Comments MCH (test code = MCH) 30.7 pg 27.0-31.0 [facility] PasoWranemuWFLSDONBCA8203-15-64 09:05:00 Test Item Value Reference Range Interpretation Comments MCV (test code = MCV) 93.6 80.0-98.0 [facility] PasoXflxfbjEBGHNGXQVJ9192-68-82 09:05:00 Test Item Value Reference Range Interpretation Comments WBC (test code = WBC) 6.6 3.7-10.4 [facility] PasoHnqzwurJFANZBXOJF9079-57-12 09:05:00 Test Item Value Reference Range Interpretation Comments Hct (test code = Hct) 41.0 36.0-48.0 [facility] HospitalKgflfzpSCTDLMOSEI4712-18-03 09:05:00 Test Item Value Reference Range Interpretation Comments Hgb (test code = Hgb) 13.4 12.0-16.0 [facility] HospitalRqshenqVZSELZWNAD0783-27-65 09:05:00 Test Item Value Reference Range Interpretation Comments RBC (test code = RBC) 4.38 4.20-5.40 [facility] JUJLSXGUV8130-86-25 09:05:00 Test Item Value Reference Range Interpretation Comments Hgb A1C (test code = Hgb A1C) 10.3 [facility] MQVTV3641-28-84 09:05:00 Test Item Value Reference Range Interpretation Comments Magnesium Lvl (test code = Magnesium 1.8 1.8-2.4 Lvl) [facility]2016-08-01 09:05:00 Test Item Value Reference Range Interpretation Comments Phosphorus (test code = Phosphorus) 2.4 2.5-4.5 [facility]2016-08-01 09:05:00 Test Item Value Reference Range Interpretation Comments CO2 (test code = CO2) 30 24-32 [facility]2016-08-01 09:05:00 Test Item Value Reference Range Interpretation Comments Glucose Lvl (test code = Glucose Lvl) 240 70-99 [facility]2016-08-01 09:05:00 Test Item Value Reference Range Interpretation Comments Creatinine Lvl (test code = Creatinine 0.80 0.50-1.40 Lvl) [facility]2016-08-01 09:05:00 Test Item Value Reference Range Interpretation Comments BUN (test code = BUN) 20 7-22 [facility]2016-08-01 09:05:00 Test Item Value Reference Range Interpretation Comments eGFR (test code = eGFR) 73 [facility]2016-08-01 09:05:00 Test Item Value Reference Range Interpretation Comments Albumin Lvl (test code = Albumin Lvl) 2.8 3.5-5.0 [facility]2016-08-01 09:05:00 Test Item Value Reference Range Interpretation Comments Calcium Lvl (test code = Calcium Lvl) 10.5 8.5-10.5 [facility]2016-08-01 09:05:00 Test Item Value Reference Range Interpretation Comments Potassium Lvl (test code = Potassium 4.3 3.5-5.1 Lvl) [facility]2016-08-01 09:05:00 Test Item Value Reference Range Interpretation Comments Chloride Lvl (test code = Chloride Lvl) 107 95-109 [facility]2016-08-01 09:05:00 Test Item Value Reference Range Interpretation Comments Sodium Lvl (test code = Sodium Lvl) 143 135-145 [facility]2016-08-01 09:05:00 Test Item Value Reference Range Interpretation Comments AGAP (test code = AGAP) 10.3 10.0-20.0 [facility] PasoOduqtbvXEPVOZGHES6530-82-25 09:05:00 Test Item Value Reference Range Interpretation Comments Lymphocytes # (test code = Lymphocytes 1.3 1.0-5.5 #) [facility] PasoRefvpyvQGPKYWIXIJ3639-45-70 09:05:00 Test Item Value Reference Range Interpretation Comments Segs-Bands # (test code = Segs-Bands #) 4.4 1.5-8.1 [facility] PasoSnbcxmqFZLWCGKDHI1967-50-27 09:05:00 Test Item Value Reference Range Interpretation Comments Eosinophils # (test code 0.3 See_Comment [A utomated message] The = Eosinophils #) system wh h generated this result tra nsmitted reference range : <=0.5. The reference r leatha was not used to int erpret this result as normal/abnormal . [facility] PasoMzcxpnlLMWCVISNLO2419-00-21 09:05:00 Test Item Value Reference Range Interpretation Comments Monocytes # (test code 0.6 See_Comment [Aut omated message] The = Monocytes #) system which generated this result tra nsmitted reference range : <=0.8. The reference r leatha was not used to int erpret this result as normal/abnormal . [facility] PasoGvzspinCVJVTLVJKW2932-63-20 09:05:00 Test Item Value Reference Range Interpretation Comments Basophils (test code = 0.5 See_Comment [Aut omated message] The Basophils) system which ge nerated this result tra nsmitted reference range : <=1.0. The reference r leatha was not used to int erpret this result as normal/abnormal . [facility] PasoXihqnehPRRJBOSNPF7007-14-07 09:05:00 Test Item Value Reference Range Interpretation Comments Eosinophils (test code = 4.9 See_Comment [A utomated message] The Eosinophils) system which ge nerated this result tra nsmitted reference range : <=4.0. The reference r leatha was not used to int erpret this result as normal/abnormal . [facility] PasoYweknlzPTUTQRTTJA4550-26-12 09:05:00 Test Item Value Reference Range Interpretation Comments Monocytes (test code = Monocytes) 9.1 2.0-12.0 [facility] PasoUanmfrtDNHNJLFATC3018-20-00 09:05:00 Test Item Value Reference Range Interpretation Comments Lymphocytes (test code = Lymphocytes) 18.9 20.0-40.0 [facility] PasoFhlgiwdHFSRPRXXIY0670-34-35 09:05:00 Test Item Value Reference Range Interpretation Comments Segs (test code = Segs) 66.6 45.0-75.0 [facility] PasoNnvwipdHZJAVEAUBJ7248-49-00 09:05:00 Test Item Value Reference Range Interpretation Comments MPV (test code = MPV) 9.4 7.4-10.4 [facility] PasoKxxodcpYSFIAAKDGQ4032-37-47 09:05:00 Test Item Value Reference Range Interpretation Comments Platelet (test code = Platelet) 168 133-450 [facility] PasoAmotjqyPXCNHEBMPX8468-36-06 09:05:00 Test Item Value Reference Range Interpretation Comments RDW (test code = RDW) 13.4 11.5-14.5 [facility] PasoTtnhnctHEOCZISEGR6577-63-27 09:05:00 Test Item Value Reference Range Interpretation Comments MCHC (test code = MCHC) 32.8 32.0-36.0 [facility] PasoEitvlpySGOVLZSQBL0331-71-81 09:05:00 Test Item Value Reference Range Interpretation Comments MCH (test code = MCH) 30.7 pg 27.0-31.0 [facility] PasoHxahisrYOJREZIBHY3661-74-94 09:05:00 Test Item Value Reference Range Interpretation Comments MCV (test code = MCV) 93.6 80.0-98.0 [facility] PasoUuhvxgcQTENPLEFRB6921-73-34 09:05:00 Test Item Value Reference Range Interpretation Comments WBC (test code = WBC) 6.6 3.7-10.4 [facility] PasoXxmkajeHCKNTBJTLD3346-57-82 09:05:00 Test Item Value Reference Range Interpretation Comments Hct (test code = Hct) 41.0 36.0-48.0 [facility] PasoJkashhxUHGZCHSRKN4560-91-94 09:05:00 Test Item Value Reference Range Interpretation Comments Hgb (test code = Hgb) 13.4 12.0-16.0 [facility] HospitalTiapeavUYOIZCGKWW3588-99-56 09:05:00 Test Item Value Reference Range Interpretation Comments RBC (test code = RBC) 4.38 4.20-5.40 [facility] [place] QGWHPCHZS1312-47-05 09:05:00 Test Item Value Reference Range Interpretation Comments Hgb A1C (test code = Hgb A1C) 10.3 [facility]2016-07-30 09:17:00 Test Item Value Reference Range Interpretation Comments eGFR (test code = eGFR) 81 [facility]2016-07-30 09:17:00 Test Item Value Reference Range Interpretation Comments Creatinine Lvl (test code = Creatinine 0.73 0.50-1.40 Lvl) [facility]2016-07-30 09:17:00 Test Item Value Reference Range Interpretation Comments AST (test code = AST) 7 See_Comment [Auto mated message] The system which ge nerated this result transmit juan reference range : <=37. The reference range was not used to interpr et this result as lashonda l/abnormal. [facility]2016-07-30 09:17:00 Test Item Value Reference Range Interpretation Comments Total Protein (test code = Total 5.0 6.4-8.4 Protein) [facility]2016-07-30 09:17:00 Test Item Value Reference Range Interpretation Comments Alk Phos (test code = Alk Phos) 73 39-136 [facility]2016-07-30 09:17:00 Test Item Value Reference Range Interpretation Comments ALT (test code = ALT) 29 See_Comment [Auto mated message] The system which ge nerated this result transmit juan reference range : <=65. The reference range was not used to interpr et this result as lashonda l/abnormal. [facility]2016-07-30 09:17:00 Test Item Value Reference Range Interpretation Comments Bili Total (test code = Bili Total) 0.7 0.2-1.3 [facility]2016-07-30 09:17:00 Test Item Value Reference Range Interpretation Comments Albumin Lvl (test code = Albumin Lvl) 2.7 3.5-5.0 [facility]2016-07-30 09:17:00 Test Item Value Reference Range Interpretation Comments AGAP (test code = AGAP) 10.9 10.0-20.0 [facility]2016-07-30 09:17:00 Test Item Value Reference Range Interpretation Comments Calcium Lvl (test code = Calcium Lvl) 10.0 8.5-10.5 [facility]2016-07-30 09:17:00 Test Item Value Reference Range Interpretation Comments Glucose Lvl (test code = Glucose Lvl) 208 70-99 [facility]2016-07-30 09:17:00 Test Item Value Reference Range Interpretation Comments Potassium Lvl (test code = Potassium 3.9 3.5-5.1 Lvl) [facility]2016-07-30 09:17:00 Test Item Value Reference Range Interpretation Comments BUN (test code = BUN) 20 7-22 [facility]2016-07-30 09:17:00 Test Item Value Reference Range Interpretation Comments Sodium Lvl (test code = Sodium Lvl) 145 135-145 [facility]2016-07-30 09:17:00 Test Item Value Reference Range Interpretation Comments Chloride Lvl (test code = Chloride Lvl) 109 95-109 [facility]2016-07-30 09:17:00 Test Item Value Reference Range Interpretation Comments CO2 (test code = CO2) 29 24-32 [facility]2016-07-30 09:17:00 Test Item Value Reference Range Interpretation Comments B/C Ratio (test code = B/C Ratio) 27 6-25 [facility]2016-07-30 09:17:00 Test Item Value Reference Range Interpretation Comments A/G Ratio (test code = A/G Ratio) 1.2 0.7-1.6 [facility]2016-07-30 09:17:00 Test Item Value Reference Range Interpretation Comments Globulin (test code = Globulin) 2.3 2.0-4.0 [facility]EontyevPUBJAKXKHB0628-86-48 09:17:00 Test Item Value Reference Range Interpretation Comments Monocytes (test code = Monocytes) 11.7 2.0-12.0 [facility] PasoGxyuriyWLAHQAGTPO3931-23-36 09:17:00 Test Item Value Reference Range Interpretation Comments Segs-Bands # (test code = Segs-Bands #) 4.9 1.5-8.1 [facility] PasoApmdpagLAUUJMTLED4176-23-28 09:17:00 Test Item Value Reference Range Interpretation Comments Basophils (test code = 0.4 See_Comment [Aut omated message] The Basophils) system which ge nerated this result tra nsmitted reference range : <=1.0. The reference r leatha was not used to int erpret this result as normal/abnormal . [facility] PasoDrnugzbUZYWLFXPPM6524-73-59 09:17:00 Test Item Value Reference Range Interpretation Comments Lymphocytes # (test code = Lymphocytes 1.3 1.0-5.5 #) [facility] PasoGdpnujiZFTFDISHDT1660-38-81 09:17:00 Test Item Value Reference Range Interpretation Comments Macrocyte (test code = 1+ *ABN*(01/15/16 Macrocyte) 4:17 AM) [facility] PasoYoywgegJQOYXXYZOB0148-32-10 09:17:00 Test Item Value Reference Range Interpretation Comments Segs (test code = Segs) 67.7 45.0-75.0 [facility] PasoYytviyyCSOOXSORAD0323-91-39 09:17:00 Test Item Value Reference Range Interpretation Comments Lymphocytes (test code = Lymphocytes) 17.4 20.0-40.0 [facility] PasoWxjvgfhXGRTMBTJXP0030-21-80 09:17:00 Test Item Value Reference Range Interpretation Comments Eosinophils (test code = 2.8 See_Comment [A utomated message] The Eosinophils) system which ge nerated this result tra nsmitted reference range : <=4.0. The reference r leatha was not used to int erpret this result as normal/abnormal . [facility] PasoTdjaamyOQEQZWNTVQ8917-45-30 09:17:00 Test Item Value Reference Range Interpretation Comments Basophils # (test code 0.0 See_Comment [Aut omated message] The = Basophils #) system which generated this result tra nsmitted reference range : <=0.2. The reference r leatha was not used to int erpret this result as normal/abnormal . [facility] PasoTmqrtueOGCEWSNUBD3625-92-46 09:17:00 Test Item Value Reference Range Interpretation Comments Eosinophils # (test code 0.2 See_Comment [A utomated message] The = Eosinophils #) system whic h generated this result tra nsmitted reference range : <=0.5. The reference r leatha was not used to int erpret this result as normal/abnormal . [facility] PasoFycfkpkAHIWUPACIE8197-72-97 09:17:00 Test Item Value Reference Range Interpretation Comments Monocytes # (test code 0.9 See_Comment [Aut omated message] The = Monocytes #) system which generated this result tra nsmitted reference range : <=0.8. The reference r leatha was not used to int erpret this result as normal/abnormal . [facility] PasoOkblkjtWZNEGDQSPW5857-86-60 09:17:00 Test Item Value Reference Range Interpretation Comments Platelet (test code = Platelet) 149 133-450 [facility] PasoEboljqqMLOEWLLPKP4663-26-76 09:17:00 Test Item Value Reference Range Interpretation Comments WBC (test code = WBC) 7.3 3.7-10.4 [facility] PasoZslgxvpGUDOGSUIMC9362-41-52 09:17:00 Test Item Value Reference Range Interpretation Comments Hct (test code = Hct) 39.8 36.0-48.0 [facility] PasoZwtptxuBOTJOQKRQM7471-56-86 09:17:00 Test Item Value Reference Range Interpretation Comments Hgb (test code = Hgb) 13.0 12.0-16.0 [facility] PasoMaowlnlRSYWRECMYM3837-22-20 09:17:00 Test Item Value Reference Range Interpretation Comments RBC (test code = RBC) 4.23 4.20-5.40 [facility] PasoMgbnutdYJCMVTNJXZ0292-97-03 09:17:00 Test Item Value Reference Range Interpretation Comments MCHC (test code = MCHC) 32.8 32.0-36.0 [facility] PasoZwmhuufIOXLQBJPTB8813-36-43 09:17:00 Test Item Value Reference Range Interpretation Comments MCV (test code = MCV) 94.0 80.0-98.0 [facility] PasoMxugmkfAZGPWAQRNA7000-80-24 09:17:00 Test Item Value Reference Range Interpretation Comments MCH (test code = MCH) 30.8 pg 27.0-31.0 [facility] PasoBkubnxyRASJHSNUWA7274-48-26 09:17:00 Test Item Value Reference Range Interpretation Comments RDW (test code = RDW) 13.5 11.5-14.5 [facility] PasoJnkgpquGXYFFBQANN8031-97-62 09:17:00 Test Item Value Reference Range Interpretation Comments MPV (test code = MPV) 9.6 7.4-10.4 [facility]2016-07-30 09:17:00 Test Item Value Reference Range Interpretation Comments eGFR (test code = eGFR) 81 [facility]2016-07-30 09:17:00 Test Item Value Reference Range Interpretation Comments Creatinine Lvl (test code = Creatinine 0.73 0.50-1.40 Lvl) [facility]2016-07-30 09:17:00 Test Item Value Reference Range Interpretation Comments AST (test code = AST) 7 See_Comment [Auto mated message] The system which ge nerated this result transmit juan reference range : <=37. The reference range was not used to interpr et this result as lashonda l/abnormal. [facility]2016-07-30 09:17:00 Test Item Value Reference Range Interpretation Comments Total Protein (test code = Total 5.0 6.4-8.4 Protein) [facility]2016-07-30 09:17:00 Test Item Value Reference Range Interpretation Comments Alk Phos (test code = Alk Phos) 73 39-136 [facility]2016-07-30 09:17:00 Test Item Value Reference Range Interpretation Comments ALT (test code = ALT) 29 See_Comment [Auto mated message] The system which ge nerated this result transmit juan reference range : <=65. The reference range was not used to interpr et this result as lashonda l/abnormal. [facility]2016-07-30 09:17:00 Test Item Value Reference Range Interpretation Comments Bili Total (test code = Bili Total) 0.7 0.2-1.3 [facility]2016-07-30 09:17:00 Test Item Value Reference Range Interpretation Comments Albumin Lvl (test code = Albumin Lvl) 2.7 3.5-5.0 [facility]2016-07-30 09:17:00 Test Item Value Reference Range Interpretation Comments AGAP (test code = AGAP) 10.9 10.0-20.0 [facility]2016-07-30 09:17:00 Test Item Value Reference Range Interpretation Comments Calcium Lvl (test code = Calcium Lvl) 10.0 8.5-10.5 [facility]2016-07-30 09:17:00 Test Item Value Reference Range Interpretation Comments Glucose Lvl (test code = Glucose Lvl) 208 70-99 [facility]2016-07-30 09:17:00 Test Item Value Reference Range Interpretation Comments Potassium Lvl (test code = Potassium 3.9 3.5-5.1 Lvl) [facility]2016-07-30 09:17:00 Test Item Value Reference Range Interpretation Comments BUN (test code = BUN) 20 7-22 [facility]2016-07-30 09:17:00 Test Item Value Reference Range Interpretation Comments Sodium Lvl (test code = Sodium Lvl) 145 135-145 [facility]2016-07-30 09:17:00 Test Item Value Reference Range Interpretation Comments Chloride Lvl (test code = Chloride Lvl) 109 95-109 [facility]2016-07-30 09:17:00 Test Item Value Reference Range Interpretation Comments CO2 (test code = CO2) 29 24-32 [facility]2016-07-30 09:17:00 Test Item Value Reference Range Interpretation Comments B/C Ratio (test code = B/C Ratio) 27 6-25 [facility]2016-07-30 09:17:00 Test Item Value Reference Range Interpretation Comments A/G Ratio (test code = A/G Ratio) 1.2 0.7-1.6 [facility]2016-07-30 09:17:00 Test Item Value Reference Range Interpretation Comments Globulin (test code = Globulin) 2.3 2.0-4.0 [facility] PasoMwqoafiQMTKICJTXO5778-52-64 09:17:00 Test Item Value Reference Range Interpretation Comments Monocytes (test code = Monocytes) 11.7 2.0-12.0 [facility] PasoTlunbtkJSDXUXDRFG0864-13-55 09:17:00 Test Item Value Reference Range Interpretation Comments Segs-Bands # (test code = Segs-Bands #) 4.9 1.5-8.1 [facility] PasoXulqhfaHZAPAMMTCJ4697-28-33 09:17:00 Test Item Value Reference Range Interpretation Comments Basophils (test code = 0.4 See_Comment [Aut omated message] The Basophils) system which ge nerated this result tra nsmitted reference range : <=1.0. The reference r leatha was not used to int erpret this result as normal/abnormal . [facility] PasoWmnbwzzUCXRVLXQPX0107-37-64 09:17:00 Test Item Value Reference Range Interpretation Comments Lymphocytes # (test code = Lymphocytes 1.3 1.0-5.5 #) [facility] PasoXsnnzbwHMBQNDZGUO2288-55-48 09:17:00 Test Item Value Reference Range Interpretation Comments Macrocyte (test code = 1+ *ABN*(01/15/16 Macrocyte) 4:17 AM) [facility] PasoIovcsasKDDMSBWWIG0460-55-86 09:17:00 Test Item Value Reference Range Interpretation Comments Segs (test code = Segs) 67.7 45.0-75.0 [facility] PasoOlelxsyGYUTMUPZGB3295-10-93 09:17:00 Test Item Value Reference Range Interpretation Comments Lymphocytes (test code = Lymphocytes) 17.4 20.0-40.0 [facility] PasoFrqxabrLZVGENFZEB4632-46-39 09:17:00 Test Item Value Reference Range Interpretation Comments Eosinophils (test code = 2.8 See_Comment [A utomated message] The Eosinophils) system which ge nerated this result tra nsmitted reference range : <=4.0. The reference r leatha was not used to int erpret this result as normal/abnormal . [facility] PasoLvakbrvVTJMEAXOQL6659-37-19 09:17:00 Test Item Value Reference Range Interpretation Comments Basophils # (test code 0.0 See_Comment [Aut omated message] The = Basophils #) system which generated this result tra nsmitted reference range : <=0.2. The reference r leatha was not used to int erpret this result as normal/abnormal . [facility] PasoIvdjvtgNNVYVEJCXM8643-99-63 09:17:00 Test Item Value Reference Range Interpretation Comments Eosinophils # (test code 0.2 See_Comment [A utomated message] The = Eosinophils #) system whic h generated this result tra nsmitted reference range : <=0.5. The reference r leatha was not used to int erpret this result as normal/abnormal . [facility] PasoOfpcznlRZXFRGYZMT9568-26-41 09:17:00 Test Item Value Reference Range Interpretation Comments Monocytes # (test code 0.9 See_Comment [Aut omated message] The = Monocytes #) system which generated this result tra nsmitted reference range : <=0.8. The reference r leatha was not used to int erpret this result as normal/abnormal . [facility] PasoYbflesoLAPALBGEGK1508-87-82 09:17:00 Test Item Value Reference Range Interpretation Comments Platelet (test code = Platelet) 149 133-450 [facility] PasoQvrnbxxAXQHOSZXIA6389-80-97 09:17:00 Test Item Value Reference Range Interpretation Comments WBC (test code = WBC) 7.3 3.7-10.4 [facility] PasoBtzglpeUNEGZCSBPH2191-14-21 09:17:00 Test Item Value Reference Range Interpretation Comments Hct (test code = Hct) 39.8 36.0-48.0 [facility] PasoIkqwkqtBBHRHNBYAZ4184-57-56 09:17:00 Test Item Value Reference Range Interpretation Comments Hgb (test code = Hgb) 13.0 12.0-16.0 [facility] PasoRgrlgdjDGQIRYCNXX4275-68-18 09:17:00 Test Item Value Reference Range Interpretation Comments RBC (test code = RBC) 4.23 4.20-5.40 [facility] PasoTzarjzhPPXQPKPVSR3773-72-41 09:17:00 Test Item Value Reference Range Interpretation Comments MCHC (test code = MCHC) 32.8 32.0-36.0 [facility] PasoSxvrzbzMIYDCFSMZN9489-03-61 09:17:00 Test Item Value Reference Range Interpretation Comments MCV (test code = MCV) 94.0 80.0-98.0 [facility] PasoZgawknjOEBOLLRGET0975-11-61 09:17:00 Test Item Value Reference Range Interpretation Comments MCH (test code = MCH) 30.8 pg 27.0-31.0 [facility] PasoTqekgbdQCLZTLZNEK5934-62-35 09:17:00 Test Item Value Reference Range Interpretation Comments RDW (test code = RDW) 13.5 11.5-14.5 [facility] PasoRhslkitDDYPDUOGXS9638-62-84 09:17:00 Test Item Value Reference Range Interpretation Comments MPV (test code = MPV) 9.6 7.4-10.4 [facility]2016-07-30 09:17:00 Test Item Value Reference Range Interpretation Comments eGFR (test code = eGFR) 81 [facility]2016-07-30 09:17:00 Test Item Value Reference Range Interpretation Comments Creatinine Lvl (test code = Creatinine 0.73 0.50-1.40 Lvl) [facility]2016-07-30 09:17:00 Test Item Value Reference Range Interpretation Comments AST (test code = AST) 7 See_Comment [Auto mated message] The system which ge nerated this result transmit juan reference range : <=37. The reference range was not used to interpr et this result as lashonda l/abnormal. [facility]2016-07-30 09:17:00 Test Item Value Reference Range Interpretation Comments Total Protein (test code = Total 5.0 6.4-8.4 Protein) [facility]2016-07-30 09:17:00 Test Item Value Reference Range Interpretation Comments Alk Phos (test code = Alk Phos) 73 39-136 [facility]2016-07-30 09:17:00 Test Item Value Reference Range Interpretation Comments ALT (test code = ALT) 29 See_Comment [Auto mated message] The system which ge nerated this result transmit juan reference range : <=65. The reference range was not used to interpr et this result as lashonda l/abnormal. [facility]2016-07-30 09:17:00 Test Item Value Reference Range Interpretation Comments Bili Total (test code = Bili Total) 0.7 0.2-1.3 [place] 170446-07-30 09:17:00 Test Item Value Reference Range Interpretation Comments Albumin Lvl (test code = Albumin Lvl) 2.7 3.5-5.0 [facility]2016-07-30 09:17:00 Test Item Value Reference Range Interpretation Comments AGAP (test code = AGAP) 10.9 10.0-20.0 [facility]2016-07-30 09:17:00 Test Item Value Reference Range Interpretation Comments Calcium Lvl (test code = Calcium Lvl) 10.0 8.5-10.5 [facility]2016-07-30 09:17:00 Test Item Value Reference Range Interpretation Comments Glucose Lvl (test code = Glucose Lvl) 208 70-99 [facility]2016-07-30 09:17:00 Test Item Value Reference Range Interpretation Comments Potassium Lvl (test code = Potassium 3.9 3.5-5.1 Lvl) [facility]2016-07-30 09:17:00 Test Item Value Reference Range Interpretation Comments BUN (test code = BUN) 20 7-22 [facility]2016-07-30 09:17:00 Test Item Value Reference Range Interpretation Comments Sodium Lvl (test code = Sodium Lvl) 145 135-145 [facility]2016-07-30 09:17:00 Test Item Value Reference Range Interpretation Comments Chloride Lvl (test code = Chloride Lvl) 109 95-109 [facility]2016-07-30 09:17:00 Test Item Value Reference Range Interpretation Comments CO2 (test code = CO2) 29 24-32 [facility]2016-07-30 09:17:00 Test Item Value Reference Range Interpretation Comments B/C Ratio (test code = B/C Ratio) 27 6-25 [facility]2016-07-30 09:17:00 Test Item Value Reference Range Interpretation Comments A/G Ratio (test code = A/G Ratio) 1.2 0.7-1.6 [facility]2016-07-30 09:17:00 Test Item Value Reference Range Interpretation Comments Globulin (test code = Globulin) 2.3 2.0-4.0 [facility] PasoWfvpzxlNSXBDCQEOV4366-10-64 09:17:00 Test Item Value Reference Range Interpretation Comments Monocytes (test code = Monocytes) 11.7 2.0-12.0 [facility] PasoFgbfchdPTOLBSBIDU4877-12-96 09:17:00 Test Item Value Reference Range Interpretation Comments Segs-Bands # (test code = Segs-Bands #) 4.9 1.5-8.1 [facility] PasoBchilutBUGEXTWHNK9293-58-68 09:17:00 Test Item Value Reference Range Interpretation Comments Basophils (test code = 0.4 See_Comment [Aut omated message] The Basophils) system which ge nerated this result tra nsmitted reference range : <=1.0. The reference r leatha was not used to int erpret this result as normal/abnormal . [facility] PasoJwcpvppCGJCAQEXGU0013-13-97 09:17:00 Test Item Value Reference Range Interpretation Comments Lymphocytes # (test code = Lymphocytes 1.3 1.0-5.5 #) [facility] PasoAzkrbarEPUGVSCWMK1661-42-46 09:17:00 Test Item Value Reference Range Interpretation Comments Macrocyte (test code = 1+ *ABN*(01/15/16 Macrocyte) 4:17 AM) [facility] PasoGozxjehCFESYLLUVA7663-81-15 09:17:00 Test Item Value Reference Range Interpretation Comments Segs (test code = Segs) 67.7 45.0-75.0 [facility] PasoRkdlgjtZBESZEXVQY8386-56-00 09:17:00 Test Item Value Reference Range Interpretation Comments Lymphocytes (test code = Lymphocytes) 17.4 20.0-40.0 [facility] PasoEhlspcrXRZLULDFRG9598-33-73 09:17:00 Test Item Value Reference Range Interpretation Comments Eosinophils (test code = 2.8 See_Comment [A utomated message] The Eosinophils) system which ge nerated this result tra nsmitted reference range : <=4.0. The reference r leatha was not used to int erpret this result as normal/abnormal . [facility] PasoLwutrzgMXXPVNZWBG9176-34-02 09:17:00 Test Item Value Reference Range Interpretation Comments Basophils # (test code 0.0 See_Comment [Aut omated message] The = Basophils #) system which generated this result tra nsmitted reference range : <=0.2. The reference r leatha was not used to int erpret this result as normal/abnormal . [facility] PasoWlrgxuzVCWRGMTRFM5398-02-02 09:17:00 Test Item Value Reference Range Interpretation Comments Eosinophils # (test code 0.2 See_Comment [A utomated message] The = Eosinophils #) system whic h generated this result tra nsmitted reference range : <=0.5. The reference r leatha was not used to int erpret this result as normal/abnormal . [facility] PasoBtswskuYRPKBOIWYS0284-65-65 09:17:00 Test Item Value Reference Range Interpretation Comments Monocytes # (test code 0.9 See_Comment [Aut omated message] The = Monocytes #) system which generated this result tra nsmitted reference range : <=0.8. The reference r leatha was not used to int erpret this result as normal/abnormal . [facility] PasoRqruultHDHZIWVCQO3893-63-72 09:17:00 Test Item Value Reference Range Interpretation Comments Platelet (test code = Platelet) 149 133-450 [facility] PasoBvbhzjeFEYOQAJLOY2262-41-23 09:17:00 Test Item Value Reference Range Interpretation Comments WBC (test code = WBC) 7.3 3.7-10.4 [facility] PasoRvuurqeGPOREIHXAS6053-33-92 09:17:00 Test Item Value Reference Range Interpretation Comments Hct (test code = Hct) 39.8 36.0-48.0 [facility] PasoTszgumjWXPXKFJKLP4837-29-99 09:17:00 Test Item Value Reference Range Interpretation Comments Hgb (test code = Hgb) 13.0 12.0-16.0 [facility] PasoTptmuhiBPHVSEKSAD5144-51-57 09:17:00 Test Item Value Reference Range Interpretation Comments RBC (test code = RBC) 4.23 4.20-5.40 [facility] PasoXewsumjXCBXVYRKKM5057-88-50 09:17:00 Test Item Value Reference Range Interpretation Comments MCHC (test code = MCHC) 32.8 32.0-36.0 [facility] PasoDgxrnqqCTXGCMXJNK7625-04-88 09:17:00 Test Item Value Reference Range Interpretation Comments MCV (test code = MCV) 94.0 80.0-98.0 [facility] PasoYrtfksgOLJUIUAFMZ8401-39-54 09:17:00 Test Item Value Reference Range Interpretation Comments MCH (test code = MCH) 30.8 pg 27.0-31.0 [facility] PasoHtbwbarWBBVKFOEVA1675-31-19 09:17:00 Test Item Value Reference Range Interpretation Comments RDW (test code = RDW) 13.5 11.5-14.5 [facility] PasoGptkhoyDVRIDOGHMC7963-88-96 09:17:00 Test Item Value Reference Range Interpretation Comments MPV (test code = MPV) 9.6 7.4-10.4 [facility]2016-07-29 10:06:00 Test Item Value Reference Range Interpretation Comments Glucose Lvl (test code = Glucose Lvl) 133 70-99 [facility]2016-07-29 10:06:00 Test Item Value Reference Range Interpretation Comments BUN (test code = BUN) 15 7-22 [facility]2016-07-29 10:06:00 Test Item Value Reference Range Interpretation Comments AGAP (test code = AGAP) 11.7 10.0-20.0 [facility]2016-07-29 10:06:00 Test Item Value Reference Range Interpretation Comments Calcium Lvl (test code = Calcium Lvl) 10.1 8.5-10.5 [facility]2016-07-29 10:06:00 Test Item Value Reference Range Interpretation Comments Potassium Lvl (test code = Potassium 3.7 3.5-5.1 Lvl) [facility]2016-07-29 10:06:00 Test Item Value Reference Range Interpretation Comments Sodium Lvl (test code = Sodium Lvl) 145 135-145 [facility]2016-07-29 10:06:00 Test Item Value Reference Range Interpretation Comments CO2 (test code = CO2) [facility]2016-07-29 10:06:00 Test Item Value Reference Range Interpretation Comments Chloride Lvl (test code = Chloride Lvl) 109 95-109 [facility]2016-07-29 10:06:00 Test Item Value Reference Range Interpretation Comments Creatinine Lvl (test code = Creatinine 0.70 0.50-1.40 Lvl) [facility]2016-07-29 10:06:00 Test Item Value Reference Range Interpretation Comments eGFR (test code = eGFR) 86 [facility]2016-07-29 10:06:00 Test Item Value Reference Range Interpretation Comments Glucose Lvl (test code = Glucose Lvl) 133 70-99 [facility] System2016-07-29 10:06:00 Test Item Value Reference Range Interpretation Comments BUN (test code = BUN) 15 7-22 [facility]2016-07-29 10:06:00 Test Item Value Reference Range Interpretation Comments AGAP (test code = AGAP) 11.7 10.0-20.0 [facility]2016-07-29 10:06:00 Test Item Value Reference Range Interpretation Comments Calcium Lvl (test code = Calcium Lvl) 10.1 8.5-10.5 [facility]2016-07-29 10:06:00 Test Item Value Reference Range Interpretation Comments Potassium Lvl (test code = Potassium 3.7 3.5-5.1 Lvl) [facility]2016-07-29 10:06:00 Test Item Value Reference Range Interpretation Comments Sodium Lvl (test code = Sodium Lvl) 145 135-145 [facility]2016-07-29 10:06:00 Test Item Value Reference Range Interpretation Comments CO2 (test code = CO2) [facility]2016-07-29 10:06:00 Test Item Value Reference Range Interpretation Comments Chloride Lvl (test code = Chloride Lvl) 109 95-109 [facility]2016-07-29 10:06:00 Test Item Value Reference Range Interpretation Comments Creatinine Lvl (test code = Creatinine 0.70 0.50-1.40 Lvl) [facility]2016-07-29 10:06:00 Test Item Value Reference Range Interpretation Comments eGFR (test code = eGFR) 86 [facility]2016-07-29 10:06:00 Test Item Value Reference Range Interpretation Comments Glucose Lvl (test code = Glucose Lvl) 133 70-99 [facility]2016-07-29 10:06:00 Test Item Value Reference Range Interpretation Comments BUN (test code = BUN) 15 7-22 [facility]2016-07-29 10:06:00 Test Item Value Reference Range Interpretation Comments AGAP (test code = AGAP) 11.7 10.0-20.0 [facility]2016-07-29 10:06:00 Test Item Value Reference Range Interpretation Comments Calcium Lvl (test code = Calcium Lvl) 10.1 8.5-10.5 [facility]2016-07-29 10:06:00 Test Item Value Reference Range Interpretation Comments Potassium Lvl (test code = Potassium 3.7 3.5-5.1 Lvl) [facility]2016-07-29 10:06:00 Test Item Value Reference Range Interpretation Comments Sodium Lvl (test code = Sodium Lvl) 145 135-145 [facility]2016-07-29 10:06:00 Test Item Value Reference Range Interpretation Comments CO2 (test code = CO2) 28 24-32 [facility]2016-07-29 10:06:00 Test Item Value Reference Range Interpretation Comments Chloride Lvl (test code = Chloride Lvl) 109 95-109 [facility]2016-07-29 10:06:00 Test Item Value Reference Range Interpretation Comments Creatinine Lvl (test code = Creatinine 0.70 0.50-1.40 Lvl) [facility]2016-07-29 10:06:00 Test Item Value Reference Range Interpretation Comments eGFR (test code = eGFR) 86 [facility]2016-07-28 10:43:00 Test Item Value Reference Range Interpretation Comments Total Protein (test code = Total 4.9 6.4-8.4 Protein) [facility]2016-07-28 10:43:00 Test Item Value Reference Range Interpretation Comments Alk Phos (test code = Alk Phos) 60 39-136 [facility]2016-07-28 10:43:00 Test Item Value Reference Range Interpretation Comments Bili Total (test code = Bili Total) 0.4 0.2-1.3 [facility]2016-07-28 10:43:00 Test Item Value Reference Range Interpretation Comments ALT (test code = ALT) 22 See_Comment [Auto mated message] The system which ge nerated this result transmit juan reference range : <=65. The reference range was not used to interpr et this result as lashonda l/abnormal. [facility]2016-07-28 10:43:00 Test Item Value Reference Range Interpretation Comments AST (test code = AST) 12 See_Comment [Auto mated message] The system which ge nerated this result transmit jaun reference range : <=37. The reference range was not used to interpr et this result as lashonda l/abnormal. [facility]2016-07-28 10:43:00 Test Item Value Reference Range Interpretation Comments Albumin Lvl (test code = Albumin Lvl) 2.7 3.5-5.0 [facility]2016-07-28 10:43:00 Test Item Value Reference Range Interpretation Comments Globulin (test code = Globulin) 2.2 2.0-4.0 [facility]2016-07-28 10:43:00 Test Item Value Reference Range Interpretation Comments A/G Ratio (test code = A/G Ratio) 1.2 0.7-1.6 [facility]2016-07-28 10:43:00 Test Item Value Reference Range Interpretation Comments B/C Ratio (test code = B/C Ratio) 23 6-25 [facility]ThtefovNVKDGFFSBT9971-58-97 10:43:00 Test Item Value Reference Range Interpretation Comments RBC (test code = RBC) 4.18 4.20-5.40 [facility] PasoTvzvadyVLBFNAOYHF6377-42-77 10:43:00 Test Item Value Reference Range Interpretation Comments WBC (test code = WBC) 6.7 3.7-10.4 [facility] PasoLajczntLOYTNAXRVJ6011-67-90 10:43:00 Test Item Value Reference Range Interpretation Comments MPV (test code = MPV) 9.3 7.4-10.4 [facility] PasoAunvxasUFRJFLWWFG5939-01-75 10:43:00 Test Item Value Reference Range Interpretation Comments Platelet (test code = Platelet) 159 133-450 [facility] PasoClyjzlkCHYBCXZOIZ2820-87-55 10:43:00 Test Item Value Reference Range Interpretation Comments RDW (test code = RDW) 12.8 11.5-14.5 [facility] PasoWunfgpfEONKCMQUKT6215-03-09 10:43:00 Test Item Value Reference Range Interpretation Comments MCH (test code = MCH) 30.7 pg 27.0-31.0 [facility] PasoFelluzhMGOVWIQGNF0338-00-06 10:43:00 Test Item Value Reference Range Interpretation Comments MCV (test code = MCV) 93.8 80.0-98.0 [facility] PasoVdbkjazMHSQNIDDWD3332-59-98 10:43:00 Test Item Value Reference Range Interpretation Comments Hct (test code = Hct) 39.2 36.0-48.0 [facility] PasoIpfltmvFWQGPSIURJ0942-70-73 10:43:00 Test Item Value Reference Range Interpretation Comments Hgb (test code = Hgb) 12.8 12.0-16.0 [facility] PasoXczfsmuWKYRTWCTDI4946-81-22 10:43:00 Test Item Value Reference Range Interpretation Comments MCHC (test code = MCHC) 32.8 32.0-36.0 [facility] PasoBxjqozgZLBQGCIHFI6100-80-29 10:43:00 Test Item Value Reference Range Interpretation Comments Lymphocytes (test code = Lymphocytes) 21.4 20.0-40.0 [facility] PasoBgihnrcPKAJAENAMM0415-97-26 10:43:00 Test Item Value Reference Range Interpretation Comments Segs (test code = Segs) 64.1 45.0-75.0 [facility] PasoPllyshvHQFNLAASSG7902-27-35 10:43:00 Test Item Value Reference Range Interpretation Comments Eosinophils (test code = 3.1 See_Comment [A utomated message] The Eosinophils) system which ge nerated this result tra nsmitted reference range : <=4.0. The reference r leatha was not used to int erpret this result as normal/abnormal . [facility] PasoScnuwifHVQMJKBTTF0517-44-26 10:43:00 Test Item Value Reference Range Interpretation Comments Monocytes (test code = Monocytes) 10.9 2.0-12.0 [facility] PasoStmjsifRZFQSREMSR0036-80-34 10:43:00 Test Item Value Reference Range Interpretation Comments Basophils (test code = 0.5 See_Comment [Aut omated message] The Basophils) system which ge nerated this result tra nsmitted reference range : <=1.0. The reference r leatha was not used to int erpret this result as normal/abnormal . [facility] PasoLxhvuylIOSOACCZIE4423-61-12 10:43:00 Test Item Value Reference Range Interpretation Comments Basophils # (test code 0.0 See_Comment [Aut omated message] The = Basophils #) system which generated this result tra nsmitted reference range : <=0.2. The reference r leatha was not used to int erpret this result as normal/abnormal . [facility] PasoUvtcxwtXGIOCFFSZJ7775-42-68 10:43:00 Test Item Value Reference Range Interpretation Comments Eosinophils # (test code 0.2 See_Comment [A utomated message] The = Eosinophils #) system whic h generated this result tra nsmitted reference range : <=0.5. The reference r leatha was not used to int erpret this result as normal/abnormal . [facility] PasoHndwlgvKRVHSPMIXJ4910-29-28 10:43:00 Test Item Value Reference Range Interpretation Comments Monocytes # (test code 0.7 See_Comment [Aut omated message] The = Monocytes #) system which generated this result tra nsmitted reference range : <=0.8. The reference r leatha was not used to int erpret this result as normal/abnormal . [facility] PasoAwpuvkcZHBKFIXXBH7323-92-90 10:43:00 Test Item Value Reference Range Interpretation Comments Lymphocytes # (test code = Lymphocytes 1.4 1.0-5.5 #) [facility] PasoPzeomutMZYSKQQXUQ2581-02-44 10:43:00 Test Item Value Reference Range Interpretation Comments Segs-Bands # (test code = Segs-Bands #) 4.3 1.5-8.1 [facility]2016-07-28 10:43:00 Test Item Value Reference Range Interpretation Comments Total Protein (test code = Total 4.9 6.4-8.4 Protein) [facility]2016-07-28 10:43:00 Test Item Value Reference Range Interpretation Comments Alk Phos (test code = Alk Phos) 60 39-136 [facility]2016-07-28 10:43:00 Test Item Value Reference Range Interpretation Comments Bili Total (test code = Bili Total) 0.4 0.2-1.3 [facility]2016-07-28 10:43:00 Test Item Value Reference Range Interpretation Comments ALT (test code = ALT) 22 See_Comment [Auto mated message] The system which ge nerated this result transmit juan reference range : <=65. The reference range was not used to interpr et this result as lashonda l/abnormal. [facility]2016-07-28 10:43:00 Test Item Value Reference Range Interpretation Comments AST (test code = AST) 12 See_Comment [Auto mated message] The system which ge nerated this result transmit juan reference range : <=37. The reference range was not used to interpr et this result as lashonda l/abnormal. [facility]2016-07-28 10:43:00 Test Item Value Reference Range Interpretation Comments Albumin Lvl (test code = Albumin Lvl) 2.7 3.5-5.0 [facility]2016-07-28 10:43:00 Test Item Value Reference Range Interpretation Comments Globulin (test code = Globulin) 2.2 2.0-4.0 [facility]2016-07-28 10:43:00 Test Item Value Reference Range Interpretation Comments A/G Ratio (test code = A/G Ratio) 1.2 0.7-1.6 [facility]2016-07-28 10:43:00 Test Item Value Reference Range Interpretation Comments B/C Ratio (test code = B/C Ratio) 23 6-25 [facility] PasoRnilfoxZSJRTEZDHK6490-28-71 10:43:00 Test Item Value Reference Range Interpretation Comments RBC (test code = RBC) 4.18 4.20-5.40 [facility] PasoAnamvzrZRMGCCBBFL2102-93-92 10:43:00 Test Item Value Reference Range Interpretation Comments WBC (test code = WBC) 6.7 3.7-10.4 [facility] PasoBmjuzmmYTXTPPZFGO8359-72-99 10:43:00 Test Item Value Reference Range Interpretation Comments MPV (test code = MPV) 9.3 7.4-10.4 [facility] PasoPpizvxnELGXMICCMQ9916-44-14 10:43:00 Test Item Value Reference Range Interpretation Comments Platelet (test code = Platelet) 159 133-450 [facility] PasoBptissyRICMPCHMST8052-66-30 10:43:00 Test Item Value Reference Range Interpretation Comments RDW (test code = RDW) 12.8 11.5-14.5 [facility] PasoBdujoiaJXCVEBPJBA2930-19-33 10:43:00 Test Item Value Reference Range Interpretation Comments MCH (test code = MCH) 30.7 pg 27.0-31.0 [facility] PasoYryicitPTOOBSKPGT1104-10-30 10:43:00 Test Item Value Reference Range Interpretation Comments MCV (test code = MCV) 93.8 80.0-98.0 [facility] PasoIlkxyfpBURFKZTOIF9843-55-69 10:43:00 Test Item Value Reference Range Interpretation Comments Hct (test code = Hct) 39.2 36.0-48.0 [facility] PasoDjhkwbaJILKDIIGNX1931-88-66 10:43:00 Test Item Value Reference Range Interpretation Comments Hgb (test code = Hgb) 12.8 12.0-16.0 [facility] PasoAnwdujfJLZMEFYWYT2378-14-58 10:43:00 Test Item Value Reference Range Interpretation Comments MCHC (test code = MCHC) 32.8 32.0-36.0 [facility] PasoVxrafmaCZFLCOIFUL5433-83-93 10:43:00 Test Item Value Reference Range Interpretation Comments Lymphocytes (test code = Lymphocytes) 21.4 20.0-40.0 [facility] PasoVdlpczuRHEBHKOJIZ0333-15-04 10:43:00 Test Item Value Reference Range Interpretation Comments Segs (test code = Segs) 64.1 45.0-75.0 [facility] PasoHxdlbsxJQGFPQHILU0287-79-88 10:43:00 Test Item Value Reference Range Interpretation Comments Eosinophils (test code = 3.1 See_Comment [A utomated message] The Eosinophils) system which ge nerated this result tra nsmitted reference range : <=4.0. The reference r leatha was not used to int erpret this result as normal/abnormal . [facility] PasoDjghfibRLVLIPTXPG9591-01-71 10:43:00 Test Item Value Reference Range Interpretation Comments Monocytes (test code = Monocytes) 10.9 2.0-12.0 [facility] PasoVcfqmnqTOAZDIJPJK7810-60-63 10:43:00 Test Item Value Reference Range Interpretation Comments Basophils (test code = 0.5 See_Comment [Aut omated message] The Basophils) system which ge nerated this result tra nsmitted reference range : <=1.0. The reference r leatha was not used to int erpret this result as normal/abnormal . [facility] PasoAsknmmgHSBONFDSEY0883-94-26 10:43:00 Test Item Value Reference Range Interpretation Comments Basophils # (test code 0.0 See_Comment [Aut omated message] The = Basophils #) system which generated this result tra nsmitted reference range : <=0.2. The reference r leatha was not used to int erpret this result as normal/abnormal . [facility] PasoLywgovmQRXJLITNVM4433-80-38 10:43:00 Test Item Value Reference Range Interpretation Comments Eosinophils # (test code 0.2 See_Comment [A utomated message] The = Eosinophils #) system whic h generated this result tra nsmitted reference range : <=0.5. The reference r leatha was not used to int erpret this result as normal/abnormal . [facility] PasoNaozkhrLWPLUHOMTN0915-26-99 10:43:00 Test Item Value Reference Range Interpretation Comments Monocytes # (test code 0.7 See_Comment [Aut omated message] The = Monocytes #) system which generated this result tra nsmitted reference range : <=0.8. The reference r leatha was not used to int erpret this result as normal/abnormal . [facility] PasoSyhlshtOGDBYHZLBY6633-11-61 10:43:00 Test Item Value Reference Range Interpretation Comments Lymphocytes # (test code = Lymphocytes 1.4 1.0-5.5 #) [facility] PasoQjrcnbjQVGTHJHBBT1441-24-71 10:43:00 Test Item Value Reference Range Interpretation Comments Segs-Bands # (test code = Segs-Bands #) 4.3 1.5-8.1 [facility]2016-07-28 10:43:00 Test Item Value Reference Range Interpretation Comments Total Protein (test code = Total 4.9 6.4-8.4 Protein) [facility]2016-07-28 10:43:00 Test Item Value Reference Range Interpretation Comments Alk Phos (test code = Alk Phos) 60 39-136 [facility]2016-07-28 10:43:00 Test Item Value Reference Range Interpretation Comments Bili Total (test code = Bili Total) 0.4 0.2-1.3 [facility]2016-07-28 10:43:00 Test Item Value Reference Range Interpretation Comments ALT (test code = ALT) 22 See_Comment [Auto mated message] The system which ge nerated this result transmit juan reference range : <=65. The reference range was not used to interpr et this result as lashonda l/abnormal. [facility]2016-07-28 10:43:00 Test Item Value Reference Range Interpretation Comments AST (test code = AST) 12 See_Comment [Auto mated message] The system which ge nerated this result transmit juan reference range : <=37. The reference range was not used to interpr et this result as alshonda l/abnormal. [facility]2016-07-28 10:43:00 Test Item Value Reference Range Interpretation Comments Albumin Lvl (test code = Albumin Lvl) 2.7 3.5-5.0 [facility]2016-07-28 10:43:00 Test Item Value Reference Range Interpretation Comments Globulin (test code = Globulin) 2.2 2.0-4.0 [facility]2016-07-28 10:43:00 Test Item Value Reference Range Interpretation Comments A/G Ratio (test code = A/G Ratio) 1.2 0.7-1.6 [facility]2016-07-28 10:43:00 Test Item Value Reference Range Interpretation Comments B/C Ratio (test code = B/C Ratio) 23 6-25 [facility] PasoGgfdbwfZUIZVIBLAI8721-57-21 10:43:00 Test Item Value Reference Range Interpretation Comments RBC (test code = RBC) 4.18 4.20-5.40 [facility] PasoYqwlrybDDLWAFIYSY6327-77-80 10:43:00 Test Item Value Reference Range Interpretation Comments WBC (test code = WBC) 6.7 3.7-10.4 [facility] PasoBqwzknsBNMEANVRXC8048-72-71 10:43:00 Test Item Value Reference Range Interpretation Comments MPV (test code = MPV) 9.3 7.4-10.4 [facility] PasoMsgpanpPVRRUSLFFB2587-29-27 10:43:00 Test Item Value Reference Range Interpretation Comments Platelet (test code = Platelet) 159 133-450 [facility] PasoYfhhgcaEIBVRNCOVI8202-69-93 10:43:00 Test Item Value Reference Range Interpretation Comments RDW (test code = RDW) 12.8 11.5-14.5 [facility] PasoUipgpgfIKRMGIRIOL4763-34-28 10:43:00 Test Item Value Reference Range Interpretation Comments MCH (test code = MCH) 30.7 pg 27.0-31.0 [facility] PasoWvfbcazFPHGHGGOZH9010-72-26 10:43:00 Test Item Value Reference Range Interpretation Comments MCV (test code = MCV) 93.8 80.0-98.0 [facility] PasoBczkxsySYJAFUQVGQ5954-24-10 10:43:00 Test Item Value Reference Range Interpretation Comments Hct (test code = Hct) 39.2 36.0-48.0 [facility] PasoOclqmfbNIYJIOGTHZ1095-49-18 10:43:00 Test Item Value Reference Range Interpretation Comments Hgb (test code = Hgb) 12.8 12.0-16.0 [facility] PasoWkzjazgMRGUAYLVMD0706-89-08 10:43:00 Test Item Value Reference Range Interpretation Comments MCHC (test code = MCHC) 32.8 32.0-36.0 [facility] PasoOwngcscSTOWGKTPZH7890-63-39 10:43:00 Test Item Value Reference Range Interpretation Comments Lymphocytes (test code = Lymphocytes) 21.4 20.0-40.0 [facility] PasoQwhvyokYLHZDLBZFY4282-20-86 10:43:00 Test Item Value Reference Range Interpretation Comments Segs (test code = Segs) 64.1 45.0-75.0 [facility] PasoArwrdtvQQZBYGYJAM8217-91-94 10:43:00 Test Item Value Reference Range Interpretation Comments Eosinophils (test code = 3.1 See_Comment [A utomated message] The Eosinophils) system which ge nerated this result tra nsmitted reference range : <=4.0. The reference r leatha was not used to int erpret this result as normal/abnormal . [facility] PasoOipdqqxETFEBCLEVK2443-52-83 10:43:00 Test Item Value Reference Range Interpretation Comments Monocytes (test code = Monocytes) 10.9 2.0-12.0 [facility] PasoUuidlgdNVMOXOHIPA7072-25-68 10:43:00 Test Item Value Reference Range Interpretation Comments Basophils (test code = 0.5 See_Comment [Aut omated message] The Basophils) system which ge nerated this result tra nsmitted reference range : <=1.0. The reference r leatha was not used to int erpret this result as normal/abnormal . [facility] PasoPgkzslhHQCXEFUPKB6355-13-15 10:43:00 Test Item Value Reference Range Interpretation Comments Basophils # (test code 0.0 See_Comment [Aut omated message] The = Basophils #) system which generated this result tra nsmitted reference range : <=0.2. The reference r leatha was not used to int erpret this result as normal/abnormal . [facility] PasoMhsqnkrDXCHJLMKQE3773-70-49 10:43:00 Test Item Value Reference Range Interpretation Comments Eosinophils # (test code 0.2 See_Comment [A utomated message] The = Eosinophils #) system whic h generated this result tra nsmitted reference range : <=0.5. The reference r leatha was not used to int erpret this result as normal/abnormal . [facility] PasoAkhtypzVLJOXQNNZX6000-91-61 10:43:00 Test Item Value Reference Range Interpretation Comments Monocytes # (test code 0.7 See_Comment [Aut omated message] The = Monocytes #) system which generated this result tra nsmitted reference range : <=0.8. The reference r leatha was not used to int erpret this result as normal/abnormal . [facility] PasoWnextyxRCQQSUCOOC4600-11-31 10:43:00 Test Item Value Reference Range Interpretation Comments Lymphocytes # (test code = Lymphocytes 1.4 1.0-5.5 #) [facility] PasoRuqtgoaMXOLIFEVGK9502-69-22 10:43:00 Test Item Value Reference Range Interpretation Comments Segs-Bands # (test code = Segs-Bands #) 4.3 1.5-8.1 [facility]2016-07-26 23:48:00 Test Item Value Reference Range Interpretation Comments Magnesium Lvl (test code = Magnesium 1.8 1.8-2.4 Lvl) [facility]2016-07-26 23:48:00 Test Item Value Reference Range Interpretation Comments Phosphorus (test code = Phosphorus) 2.0 2.5-4.5 [facility] PasoMupactwUEFPUWCHYJ7366-81-69 23:48:00 Test Item Value Reference Range Interpretation Comments Basophils # (test code 0.0 See_Comment [Aut omated message] The = Basophils #) system which generated this result tra nsmitted reference range : <=0.2. The reference r leatha was not used to int erpret this result as normal/abnormal . [facility] PasoKrlyrrbDBLGLSEHMI7913-55-95 23:48:00 Test Item Value Reference Range Interpretation Comments Macrocyte (test code = 1+ *ABN*(01/11/16 Macrocyte) 6:48 PM) [facility] PasoKwyrprsVNKTVIBBZF2769-82-70 23:48:00 Test Item Value Reference Range Interpretation Comments INR (test code = INR) 0.99 0.85-1.17 [facility] PasoZzhhvmkXTEVKQTKYN5518-05-69 23:48:00 Test Item Value Reference Range Interpretation Comments PTT (test code = PTT) 23.5 s 22.9-35.8 [place] 205526-07-26 23:48:00 Test Item Value Reference Range Interpretation Comments PT (test code = PT) 13.4 s 12.0-14.7 [facility]2016-07-26 23:48:00 Test Item Value Reference Range Interpretation Comments Magnesium Lvl (test code = Magnesium 1.8 1.8-2.4 Lvl) [facility]2016-07-26 23:48:00 Test Item Value Reference Range Interpretation Comments Phosphorus (test code = Phosphorus) 2.0 2.5-4.5 [facility] PasoDlsykayVZWLSEVJXD5082-03-22 23:48:00 Test Item Value Reference Range Interpretation Comments Basophils # (test code 0.0 See_Comment [Aut omated message] The = Basophils #) system which generated this result tra nsmitted reference range : <=0.2. The reference r leatha was not used to int erpret this result as normal/abnormal . [facility] PasoAlwxfzwLJCTTINKBF9532-11-74 23:48:00 Test Item Value Reference Range Interpretation Comments Macrocyte (test code = 1+ *ABN*(01/11/16 Macrocyte) 6:48 PM) [facility] PasoDajgtrlDAOJHOPJBS7913-77-94 23:48:00 Test Item Value Reference Range Interpretation Comments INR (test code = INR) 0.99 0.85-1.17 [facility] PasoBdrpadxBBVMGHNJLN7818-90-05 23:48:00 Test Item Value Reference Range Interpretation Comments PTT (test code = PTT) 23.5 s 22.9-35.8 [facility]oLnkdsltFNZOOTTZJS6650-49-33 23:48:00 Test Item Value Reference Range Interpretation Comments PT (test code = PT) 13.4 s 12.0-14.7 [facility]2016-07-26 23:48:00 Test Item Value Reference Range Interpretation Comments Magnesium Lvl (test code = Magnesium 1.8 1.8-2.4 Lvl) [facility]2016-07-26 23:48:00 Test Item Value Reference Range Interpretation Comments Phosphorus (test code = Phosphorus) 2.0 2.5-4.5 [facility] PasoXkurgcgNHHSFDUWLD0037-12-24 23:48:00 Test Item Value Reference Range Interpretation Comments Basophils # (test code 0.0 See_Comment [Aut omated message] The = Basophils #) system which generated this result tra nsmitted reference range : <=0.2. The reference r leatha was not used to int erpret this result as normal/abnormal . [facility] PasoVjgzopqSDWCQGMOMH5886-53-99 23:48:00 Test Item Value Reference Range Interpretation Comments Macrocyte (test code = 1+ *ABN*(01/11/16 Macrocyte) 6:48 PM) [facility] PasoZwhjlzrJKOGEJAQOA1486-77-76 23:48:00 Test Item Value Reference Range Interpretation Comments INR (test code = INR) 0.99 0.85-1.17 [facility] PasoLyblrbmUIFCETMRWR8492-94-66 23:48:00 Test Item Value Reference Range Interpretation Comments PTT (test code = PTT) 23.5 s 22.9-35.8 [facility] PasoWfpvtupWHEGSYPMOD0433-44-43 23:48:00 Test Item Value Reference Range Interpretation Comments PT (test code = PT) 13.4 s 12.0-14.7 [facility] GLUCOSE [id number] 12:49:00 Test Item Value Reference Range Interpretation Comments Comment1 (test code = Comment1) Notify RN/MD [facility] GLUCOSE MFISPAC7613-97-04 12:49:00 Test Item Value Reference Range Interpretation Comments Gluc POC Lifscn (test code = Gluc POC 308 70-99 H Lifscn) [facility] GLUCOSE WXGBJMF6234-21-30 12:49:00 Test Item Value Reference Range Interpretation Comments Comment1 (test code = Comment1) Notify RN/ [facility] GLUCOSE AXJRQUL7228-89-75 12:49:00 Test Item Value Reference Range Interpretation Comments Gluc POC Lifscn (test code = Gluc POC 308 70-99 H Lifscn) [facility] GLUCOSE [id number] 12:49:00 Test Item Value Reference Range Interpretation Comments Comment1 (test code = Comment1) Notify RN/ [facility] GLUCOSE UDZKFIW0389-22-78 12:49:00 Test Item Value Reference Range Interpretation Comments Gluc POC Lifscn (test code = Gluc POC 308 70-99 H Lifscn) [facility] GLUCOSE [id number] 08:39:00 Test Item Value Reference Range Interpretation Comments Comment1 (test code = Comment1) Notify RN/ [facility] GLUCOSE [id number] 08:39:00 Test Item Value Reference Range Interpretation Comments Gluc POC Lifscn (test code = Gluc POC 159 70-99 H Lifscn) [facility] GLUCOSE UKPUZZP8608-98-57 08:39:00 Test Item Value Reference Range Interpretation Comments Comment1 (test code = Comment1) Notify RN/ [facility] GLUCOSE [id number] 08:39:00 Test Item Value Reference Range Interpretation Comments Gluc POC Lifscn (test code = Gluc POC 159 70-99 H Lifscn) [facility] GLUCOSE [id number] 08:39:00 Test Item Value Reference Range Interpretation Comments Comment1 (test code = Comment1) Notify RN/ [facility] GLUCOSE [id number] 08:39:00 Test Item Value Reference Range Interpretation Comments Gluc POC Lifscn (test code = Gluc POC 159 70-99 H Lifscn) [facility]KfdgbolOMHWLSJGB9551-82-80 07:19:00 Test Item Value Reference Range Interpretation Comments AGAP (test code = AGAP) 14.3 10.0-20.0 N [facility] HospitalWvnivaoMDIATZDVH8652-45-17 07:19:00 Test Item Value Reference Range Interpretation Comments eGFR (test code = eGFR) 75 [facility] HospitalHebggrxIYNOONNDH0775-37-29 07:19:00 Test Item Value Reference Range Interpretation Comments Sodium Lvl (test code = Sodium Lvl) 139 135-145 N [facility] HospitalVtjewwoEVNDLVFLW3537-67-94 07:19:00 Test Item Value Reference Range Interpretation Comments Chloride Lvl (test code = Chloride Lvl) 104 95-109 N [facility] HospitalMlugztsXAPDQBUFS8222-48-20 07:19:00 Test Item Value Reference Range Interpretation Comments CO2 (test code = CO2) 25 24-32 N [facility] HospitalEylntpqIYNCJVZSR9378-50-78 07:19:00 Test Item Value Reference Range Interpretation Comments Calcium Lvl (test code = Calcium Lvl) 10.7 8.5-10.5 H [facility] HospitalAmiyujhCGPIXVIHJ1844-12-34 07:19:00 Test Item Value Reference Range Interpretation Comments Potassium Lvl (test code = Potassium 4.3 3.5-5.1 N Lvl) [facility] HospitalWtovpmeKPXRKYRMN2244-03-02 07:19:00 Test Item Value Reference Range Interpretation Comments Glucose Lvl (test code = Glucose Lvl) 262 70-99 H [facility] HospitalWztzgccDTMISYLNY9328-36-61 07:19:00 Test Item Value Reference Range Interpretation Comments Creatinine Lvl (test code = Creatinine 0.8 0.5-1.4 N Lvl) [facility] HospitalQeadjtfEHPCKQPPQ8160-90-70 07:19:00 Test Item Value Reference Range Interpretation Comments BUN (test code = BUN) 20 7-22 N [facility] PasoOemiulsOXPYZIAJVD1323-56-87 07:19:00 Test Item Value Reference Range Interpretation Comments Hgb (test code = Hgb) 14.0 12.0-16.0 N [facility] PasoGqfwfdfSNJBXGOZLN6108-30-88 07:19:00 Test Item Value Reference Range Interpretation Comments Hct (test code = Hct) 42.5 36.0-48.0 N [facility] PasoJoahbqaADAOIMCNUI9785-98-00 07:19:00 Test Item Value Reference Range Interpretation Comments MCV (test code = MCV) 92.3 81.0-99.0 N [facility] PasoGczivomGQGKZRNNRH6527-43-82 07:19:00 Test Item Value Reference Range Interpretation Comments MCH (test code = MCH) 30.5 pg 27.0-31.0 N [facility] PasoFyaewjyQUIYZXAJRP5657-16-89 07:19:00 Test Item Value Reference Range Interpretation Comments MCHC (test code = MCHC) 33.0 32.0-36.0 N [facility] PasoUqucingLSBAJDSMAB2204-11-53 07:19:00 Test Item Value Reference Range Interpretation Comments RDW (test code = RDW) 14.6 11.5-14.5 H [facility] PasoMthgwsbFFSZKUQILR3414-87-14 07:19:00 Test Item Value Reference Range Interpretation Comments Platelet (test code = Platelet) 215 133-450 N [facility] PasoYoqprciXRABWEAEPP0319-15-90 07:19:00 Test Item Value Reference Range Interpretation Comments MPV (test code = MPV) 10.0 7.4-10.4 N [facility] PasoUnsdxxpRNONQTOUHN2244-55-65 07:19:00 Test Item Value Reference Range Interpretation Comments RBC (test code = RBC) 4.60 4.20-5.40 N [facility] PasoCcckbtlNDTMKCQNGG8483-92-35 07:19:00 Test Item Value Reference Range Interpretation Comments WBC (test code = WBC) 13.0 3.7-10.4 H [facility] HospitalVuxsdglKZAWZRWCD3804-80-51 07:19:00 Test Item Value Reference Range Interpretation Comments AGAP (test code = AGAP) 14.3 10.0-20.0 N [facility] HospitalOhkjsmfWDVRSJGFW6516-04-92 07:19:00 Test Item Value Reference Range Interpretation Comments eGFR (test code = eGFR) 75 [facility] HospitalEdpxlypQVAMTDKKN5752-39-59 07:19:00 Test Item Value Reference Range Interpretation Comments Sodium Lvl (test code = Sodium Lvl) 139 135-145 N [facility] HospitalTdovjixYEZDTRRXG2556-81-44 07:19:00 Test Item Value Reference Range Interpretation Comments Chloride Lvl (test code = Chloride Lvl) 104 95-109 N [facility] HospitalPzlvlvhAZQWJWAHQ2196-25-43 07:19:00 Test Item Value Reference Range Interpretation Comments CO2 (test code = CO2) 25 24-32 N [facility] HospitalYiiszwiYCNTYYBOS3803-25-37 07:19:00 Test Item Value Reference Range Interpretation Comments Calcium Lvl (test code = Calcium Lvl) 10.7 8.5-10.5 H [facility] HospitalTzlzndaHOMATSFVZ5293-29-07 07:19:00 Test Item Value Reference Range Interpretation Comments Potassium Lvl (test code = Potassium 4.3 3.5-5.1 N Lvl) [facility] HospitalBptmwdqYCLAVWVWM9990-71-57 07:19:00 Test Item Value Reference Range Interpretation Comments Glucose Lvl (test code = Glucose Lvl) 262 70-99 H [facility] HospitalGmngnqgTPHRELNZC9923-64-26 07:19:00 Test Item Value Reference Range Interpretation Comments Creatinine Lvl (test code = Creatinine 0.8 0.5-1.4 N Lvl) [facility] HospitalCswoktmADZKDBOTD9188-45-80 07:19:00 Test Item Value Reference Range Interpretation Comments BUN (test code = BUN) 20 7-22 N [facility] PasoUtktjvsWQRXCCCEXT5748-78-23 07:19:00 Test Item Value Reference Range Interpretation Comments Hgb (test code = Hgb) 14.0 12.0-16.0 N [facility] PasoNhfcangBWZGZGZZWN6484-02-06 07:19:00 Test Item Value Reference Range Interpretation Comments Hct (test code = Hct) 42.5 36.0-48.0 N [facility] PasoXkxxdebGDNCXVWPRH9401-44-56 07:19:00 Test Item Value Reference Range Interpretation Comments MCV (test code = MCV) 92.3 81.0-99.0 N [facility] PasoBmwtzkbIYMGYOMIGI8403-66-05 07:19:00 Test Item Value Reference Range Interpretation Comments MCH (test code = MCH) 30.5 pg 27.0-31.0 N [facility] PasoPluesboZXAZGUFYQH3765-07-82 07:19:00 Test Item Value Reference Range Interpretation Comments MCHC (test code = MCHC) 33.0 32.0-36.0 N [facility] PasoGlsqpqyZJKPYUINVS7138-73-33 07:19:00 Test Item Value Reference Range Interpretation Comments RDW (test code = RDW) 14.6 11.5-14.5 H [facility] PasoZvuoytgBGBORCMTOS4279-62-92 07:19:00 Test Item Value Reference Range Interpretation Comments Platelet (test code = Platelet) 215 133-450 N [facility] PasoEihnnryBSVBPVBCRH2899-28-91 07:19:00 Test Item Value Reference Range Interpretation Comments MPV (test code = MPV) 10.0 7.4-10.4 N [facility] PasoBgxtdltHUGEHBATXP2347-25-66 07:19:00 Test Item Value Reference Range Interpretation Comments RBC (test code = RBC) 4.60 4.20-5.40 N [facility] PasoImlxlmeWPTMLCZDMG6691-18-36 07:19:00 Test Item Value Reference Range Interpretation Comments WBC (test code = WBC) 13.0 3.7-10.4 H [facility] HospitalWsogwyaGCZQAJRGK8991-29-55 07:19:00 Test Item Value Reference Range Interpretation Comments AGAP (test code = AGAP) 14.3 10.0-20.0 N [facility] HospitalXkkbmkpVZFRPOKXT4332-78-81 07:19:00 Test Item Value Reference Range Interpretation Comments eGFR (test code = eGFR) 75 [facility] HospitalOinmzznLZVFRCSBK6565-96-93 07:19:00 Test Item Value Reference Range Interpretation Comments Sodium Lvl (test code = Sodium Lvl) 139 135-145 N [facility] HospitalUgspsfyZXUEHSVQF6460-08-10 07:19:00 Test Item Value Reference Range Interpretation Comments Chloride Lvl (test code = Chloride Lvl) 104 95-109 N [facility] HospitalBpnqvsgGNDHVIXFM5522-78-63 07:19:00 Test Item Value Reference Range Interpretation Comments CO2 (test code = CO2) 25 24-32 N [facility] HospitalDqdtyqdJOEKICRUX0546-48-41 07:19:00 Test Item Value Reference Range Interpretation Comments Calcium Lvl (test code = Calcium Lvl) 10.7 8.5-10.5 H [facility] HospitalBpazdgaEBZCRUTPY6641-59-61 07:19:00 Test Item Value Reference Range Interpretation Comments Potassium Lvl (test code = Potassium 4.3 3.5-5.1 N Lvl) [facility] HospitalOcdtugfPZKZOPEAG0898-04-10 07:19:00 Test Item Value Reference Range Interpretation Comments Glucose Lvl (test code = Glucose Lvl) 262 70-99 H [facility] HospitalCxcznktEGCDJPDLR6278-09-44 07:19:00 Test Item Value Reference Range Interpretation Comments Creatinine Lvl (test code = Creatinine 0.8 0.5-1.4 N Lvl) [facility] HospitalFanvtuyJIKNOVEES0150-28-44 07:19:00 Test Item Value Reference Range Interpretation Comments BUN (test code = BUN) 20 7-22 N [facility] PasoFyhndjlTCHZVGBMYD3230-03-92 07:19:00 Test Item Value Reference Range Interpretation Comments Hgb (test code = Hgb) 14.0 12.0-16.0 N [facility] PasoXzvmwskXYFFMVTWFO1275-07-09 07:19:00 Test Item Value Reference Range Interpretation Comments Hct (test code = Hct) 42.5 36.0-48.0 N [facility] PasoEjigishWMPFMDSIOU3777-28-29 07:19:00 Test Item Value Reference Range Interpretation Comments MCV (test code = MCV) 92.3 81.0-99.0 N [facility] PasoKjahqxgCLJJXXJWWJ9867-74-97 07:19:00 Test Item Value Reference Range Interpretation Comments MCH (test code = MCH) 30.5 pg 27.0-31.0 N [facility] PasoAyrzxopRJOLQHAPDA7925-06-65 07:19:00 Test Item Value Reference Range Interpretation Comments MCHC (test code = MCHC) 33.0 32.0-36.0 N [facility] PasoHlghgotYAQKVALWZZ9080-26-91 07:19:00 Test Item Value Reference Range Interpretation Comments RDW (test code = RDW) 14.6 11.5-14.5 H [facility] PasoFeudrwvMSFUELGHRX0887-42-96 07:19:00 Test Item Value Reference Range Interpretation Comments Platelet (test code = Platelet) 215 133-450 N [facility] PasoPkjcszyOIHOMILRSL1468-12-60 07:19:00 Test Item Value Reference Range Interpretation Comments MPV (test code = MPV) 10.0 7.4-10.4 N [facility] PasoTxzffhzKFBOMRVNVX8090-41-99 07:19:00 Test Item Value Reference Range Interpretation Comments RBC (test code = RBC) 4.60 4.20-5.40 N [facility] PasoQynfgbxEMEGWLDSHL4008-08-53 07:19:00 Test Item Value Reference Range Interpretation Comments WBC (test code = WBC) 13.0 3.7-10.4 H [facility] GLUCOSE ZFWRDFO4225-96-60 04:41:00 Test Item Value Reference Range Interpretation Comments Comment1 (test code = Comment1) Notify RN/ [facility] GLUCOSE ICWRNDB8244-36-29 04:41:00 Test Item Value Reference Range Interpretation Comments Gluc POC Lifscn (test code = Gluc POC 244 70-99 H Lifscn) [facility] GLUCOSE VABVDVZ8130-46-64 04:41:00 Test Item Value Reference Range Interpretation Comments Comment1 (test code = Comment1) Notify RN/ [facility] GLUCOSE WWBJZDV5218-30-00 04:41:00 Test Item Value Reference Range Interpretation Comments Gluc POC Lifscn (test code = Gluc POC 244 70-99 H Lifscn) [facility] GLUCOSE TOPTIGH9470-10-10 04:41:00 Test Item Value Reference Range Interpretation Comments Comment1 (test code = Comment1) Nolany RN/MD [facility] GLUCOSE KIDWLSV0837-24-91 04:41:00 Test Item Value Reference Range Interpretation Comments Gluc POC Lifscn (test code = Gluc POC 244 70-99 H Lifscn) [facility] HospitalSyxfmvqWZPMAQPXE7999-15-07 07:50:32 Test Item Value Reference Range Interpretation Comments Magnesium Lvl (test code = Magnesium 2.0 1.8-2.4 N Lvl) [facility] HospitalNnmfhkiVZVUTDABB0211-19-62 07:50:32 Test Item Value Reference Range Interpretation Comments Magnesium Lvl (test code = Magnesium 2.0 1.8-2.4 N Lvl) [facility] HospitalZacwvgeYHVHNYRPF2295-85-40 07:50:32 Test Item Value Reference Range Interpretation Comments Magnesium Lvl (test code = Magnesium 2.0 1.8-2.4 N Lvl) [facility]Bbmmwrbwvbso4528-20-47 11:00:00 Test Item Value Reference Range Interpretation Comments Culture: Urine (test code = Culture: Urine) [facility]GqmlpwcIbyunhmznmsh5957-88-60 11:00:00 Test Item Value Reference Range Interpretation Comments Culture: Urine (test code = Culture: Urine) [facility]VnicwzpSauyldzrxdjg5414-29-39 11:00:00 Test Item Value Reference Range Interpretation Comments Culture: Urine (test code = Culture: Urine) [facility]XbjtqypWFOYQPAGLW3650-47-93 06:52:38 Test Item Value Reference Range Interpretation Comments UA Urobilinogen (test code *NA*(10/04/2012 0.1-1.0 = UA Urobilinogen) 01:52:38) [facility] AreaAslfdynOWPTISJJXF2228-58-49 06:52:38 Test Item Value Reference Range Interpretation Comments UA Color (test code = Yellow *NA*(10/04/2012 UA Color) 01:52:38) [facility] AreaLlvujshRTGZXTYBVP4772-40-42 06:52:38 Test Item Value Reference Range Interpretation Comments UA Bacteria (test code Occasional /HPF = UA Bacteria) *NA*(10/04/2012 01:52:38) [facility] AreaZwwtucoBVCYZSZDSG2414-61-17 06:52:38 Test Item Value Reference Range Interpretation Comments UA Sq Epi (test code Occasional /LPF = UA Sq Epi) *NA*(10/04/2012 01:52:38) [facility] AreaXcxaqjuQWIPXEJRSQ1446-55-12 06:52:38 Test Item Value Reference Range Interpretation Comments UA RBC (test code = 6 See_Comment H [Automa juan message] The UA RBC) system which ge nerated this result transmit juan reference range : <=2. The reference range was not used to interpr et this result as lashonda l/abnormal. [facility] HospitalFtthistNXPSGYLLEU0852-88-91 06:52:38 Test Item Value Reference Range Interpretation Comments UA Leuk Est (test code Small *ABN*(10/04/2012 A = UA Leuk Est) 01:52:38) [facility] HospitalWjslqxnUUCOMUTUSV8830-80-60 06:52:38 Test Item Value Reference Range Interpretation Comments UA WBC (test code = 12 See_Comment H [Automa juan message] The UA WBC) system which ge nerated this result transmit juan reference range : <=5. The reference range was not used to interpr et this result as lashonda l/abnormal. [facility] HospitalAywrugwLKKZEGYESC6273-09-34 06:52:38 Test Item Value Reference Range Interpretation Comments UA Protein (test code = 10 mg/dL A UA Protein) *ABN*(10/04/2012 01:52:38) [facility] HospitalQnjtgchTEXIUFHIDG6268-86-06 06:52:38 Test Item Value Reference Range Interpretation Comments UA pH (test code = UA pH) 5.0 5.0-8.0 N [facility] HospitalApapzbqAMLCDEYIRF8557-51-57 06:52:38 Test Item Value Reference Range Interpretation Comments UA Spec Grav (test code = UA Spec Grav) 1.022 N [facility] AreaCkcitbcPPNPZDGYEE1627-69-23 06:52:38 Test Item Value Reference Range Interpretation Comments UA Turbidity (test code Slight A = UA Turbidity) *ABN*(10/04/2012 01:52:38) [facility] HospitalAmuvjdiBJDILIBACQ6218-31-10 06:52:38 Test Item Value Reference Range Interpretation Comments UA Nitrite (test code Negative (10/04/2012 N = UA Nitrite) 01:52:38) [facility] HospitalHhxhvdcXSCWSOCLWZ5648-36-20 06:52:38 Test Item Value Reference Range Interpretation Comments UA Blood (test code = Small *ABN*(10/04/2012 A UA Blood) 01:52:38) [facility] AreaGnowiqdNMDCQUQUJI5477-09-52 06:52:38 Test Item Value Reference Range Interpretation Comments UA Bili (test code = Negative *NA*(10/04/2012 UA Bili) 01:52:38) [facility] HospitalQqjvykaMBEACKPSGR0603-38-92 06:52:38 Test Item Value Reference Range Interpretation Comments UA Ketones (test code Negative mg/dL = UA Ketones) *NA*(10/04/2012 01:52:38) [facility] HospitalEgxbnbdSUEXIWYBKY2016-59-20 06:52:38 Test Item Value Reference Range Interpretation Comments UA Glucose (test code = 30 mg/dL A UA Glucose) *ABN*(10/04/2012 01:52:38) [facility] HospitalBtllusnOZSAXEEDXY2943-17-74 06:52:38 Test Item Value Reference Range Interpretation Comments UA Urobilinogen (test code *NA*(10/04/2012 0.1-1.0 = UA Urobilinogen) 01:52:38) [facility] HospitalNlgmxbmFBAMFRBSJX3838-05-72 06:52:38 Test Item Value Reference Range Interpretation Comments UA Color (test code = Yellow *NA*(10/04/2012 UA Color) 01:52:38) [facility] HospitalSthxbqrOBUKTIXEGS1730-16-90 06:52:38 Test Item Value Reference Range Interpretation Comments UA Bacteria (test code Occasional /HPF = UA Bacteria) *NA*(10/04/2012 01:52:38) [facility] HospitalNqsticvOHRQSRJXAU4311-51-23 06:52:38 Test Item Value Reference Range Interpretation Comments UA Sq Epi (test code Occasional /LPF = UA Sq Epi) *NA*(10/04/2012 01:52:38) [facility] HospitalOoopxudQASIWOMHPS8473-92-26 06:52:38 Test Item Value Reference Range Interpretation Comments UA RBC (test code = 6 See_Comment H [Automa juan message] The UA RBC) system which ge nerated this result transmit juan reference range : <=2. The reference range was not used to interpr et this result as lashonda l/abnormal. [facility] HospitalEzolscmRANCJGPTOU2628-02-95 06:52:38 Test Item Value Reference Range Interpretation Comments UA Leuk Est (test code Small *ABN*(10/04/2012 A = UA Leuk Est) 01:52:38) [facility] AreaJhalrkwUIWKXJQOFN2131-28-50 06:52:38 Test Item Value Reference Range Interpretation Comments UA WBC (test code = 12 See_Comment H [Automa juan message] The UA WBC) system which ge nerated this result transmit juan reference range : <=5. The reference range was not used to interpr et this result as lashonda l/abnormal. [facility] HospitalJbqvpfiSDPZHLTGGG2665-94-10 06:52:38 Test Item Value Reference Range Interpretation Comments UA Protein (test code = 10 mg/dL A UA Protein) *ABN*(10/04/2012 01:52:38) [facility] HospitalYajcjqpRWHGKDBGCJ9125-40-70 06:52:38 Test Item Value Reference Range Interpretation Comments UA pH (test code = UA pH) 5.0 5.0-8.0 N [facility] HospitalWhlouptKTULMOOJYM2267-76-34 06:52:38 Test Item Value Reference Range Interpretation Comments UA Spec Grav (test code = UA Spec Grav) 1.022 N [facility] HospitalBcquskmPFERXUWYNM3888-23-73 06:52:38 Test Item Value Reference Range Interpretation Comments UA Turbidity (test code Slight A = UA Turbidity) *ABN*(10/04/2012 01:52:38) [facility] HospitalYiruqsdVFJCFJNIEF9014-24-63 06:52:38 Test Item Value Reference Range Interpretation Comments UA Nitrite (test code Negative (10/04/2012 N = UA Nitrite) 01:52:38) [facility] AreaWaxkmxbYCUGZUGUAH9202-23-58 06:52:38 Test Item Value Reference Range Interpretation Comments UA Blood (test code = Small *ABN*(10/04/2012 A UA Blood) 01:52:38) [facility] AreaNtgxjrsCFPCOTKTAF0936-75-33 06:52:38 Test Item Value Reference Range Interpretation Comments UA Bili (test code = Negative *NA*(10/04/2012 UA Bili) 01:52:38) [facility] HospitalYytfitmCWBVLEWWKV4149-94-67 06:52:38 Test Item Value Reference Range Interpretation Comments UA Ketones (test code Negative mg/dL = UA Ketones) *NA*(10/04/2012 01:52:38) [facility] HospitalZzjlozeOAVSEQIGRQ9953-04-81 06:52:38 Test Item Value Reference Range Interpretation Comments UA Glucose (test code = 30 mg/dL A UA Glucose) *ABN*(10/04/2012 01:52:38) [facility] HospitalWffktndDWCJBYYRKX3482-07-34 06:52:38 Test Item Value Reference Range Interpretation Comments UA Urobilinogen (test code *NA*(10/04/2012 0.1-1.0 = UA Urobilinogen) 01:52:38) [facility] HospitalMixghegKTMVOBQNBA5597-77-91 06:52:38 Test Item Value Reference Range Interpretation Comments UA Color (test code = Yellow *NA*(10/04/2012 UA Color) 01:52:38) [facility] HospitalDascjckUNAOBJUBGJ0438-72-18 06:52:38 Test Item Value Reference Range Interpretation Comments UA Bacteria (test code Occasional /HPF = UA Bacteria) *NA*(10/04/2012 01:52:38) [facility] [facility]VtqiauwABCZOUOZMC1864-60-10 06:52:38 Test Item Value Reference Range Interpretation Comments UA Sq Epi (test code Occasional /LPF = UA Sq Epi) *NA*(10/04/2012 01:52:38) [facility] HospitalQmhvamqPBYWDNRNUY7618-12-59 06:52:38 Test Item Value Reference Range Interpretation Comments UA RBC (test code = 6 See_Comment H [Automa juan message] The UA RBC) system which ge nerated this result transmit juan reference range : <=2. The reference range was not used to interpr et this result as lashonda l/abnormal. [facility] HospitalCmgmrswMTZBWYVYJU9488-79-23 06:52:38 Test Item Value Reference Range Interpretation Comments UA Leuk Est (test code Small *ABN*(10/04/2012 A = UA Leuk Est) 01:52:38) [facility] HospitalNtskrdbIGXXLVSIYK9133-58-23 06:52:38 Test Item Value Reference Range Interpretation Comments UA WBC (test code = 12 See_Comment H [Automa juan message] The UA WBC) system which ge nerated this result transmit juan reference range : <=5. The reference range was not used to interpr et this result as lashonda l/abnormal. [facility]WxscanvPZUFEPMDID7066-33-75 06:52:38 Test Item Value Reference Range Interpretation Comments UA Protein (test code = 10 mg/dL A UA Protein) *ABN*(10/04/2012 01:52:38) [facility] HospitalLgxdwdyJGHIEKRFTY4564-77-66 06:52:38 Test Item Value Reference Range Interpretation Comments UA pH (test code = UA pH) 5.0 5.0-8.0 N [facility] HospitalKqtzlrlKYCQNNHCVB1244-97-67 06:52:38 Test Item Value Reference Range Interpretation Comments UA Spec Grav (test code = UA Spec Grav) 1.022 N [facility] HospitalUypkcplOTXFDNAERL9245-13-02 06:52:38 Test Item Value Reference Range Interpretation Comments UA Turbidity (test code Slight A = UA Turbidity) *ABN*(10/04/2012 01:52:38) [facility] HospitalLvkbskcNATGBVSACH0202-38-08 06:52:38 Test Item Value Reference Range Interpretation Comments UA Nitrite (test code Negative (10/04/2012 N = UA Nitrite) 01:52:38) [facility] HospitalQzcqdwvBEDQXKZLPX0164-72-56 06:52:38 Test Item Value Reference Range Interpretation Comments UA Blood (test code = Small *ABN*(10/04/2012 A UA Blood) 01:52:38) [facility] HospitalNasmvyfDZBXSIFDXL7467-36-98 06:52:38 Test Item Value Reference Range Interpretation Comments UA Bili (test code = Negative *NA*(10/04/2012 UA Bili) 01:52:38) [facility] HospitalBputvuoXWXTRJEUSH7351-90-37 06:52:38 Test Item Value Reference Range Interpretation Comments UA Ketones (test code Negative mg/dL = UA Ketones) *NA*(10/04/2012 01:52:38) [facility] HospitalKzfrfppDMBJCGNVZA5390-15-70 06:52:38 Test Item Value Reference Range Interpretation Comments UA Glucose (test code = 30 mg/dL A UA Glucose) *ABN*(10/04/2012 01:52:38) [facility]WjgbdrlRNZBCIGVO7973-22-88 06:52:00 Test Item Value Reference Range Interpretation Comments Phosphorus (test code = Phosphorus) 3.5 2.5-4.5 N [facility] HospitalDtijdakZHTMLRWVX0684-97-86 06:52:00 Test Item Value Reference Range Interpretation Comments AGAP (test code = AGAP) 13.4 10.0-20.0 N [facility] HospitalRihyfebWCLOCYOEZ2636-50-43 06:52:00 Test Item Value Reference Range Interpretation Comments Glucose Lvl (test code = Glucose Lvl) 181 70-99 H [facility] HospitalRmwmmntZFRBQNBEY2657-55-36 06:52:00 Test Item Value Reference Range Interpretation Comments Creatinine Lvl (test code = Creatinine 0.9 0.5-1.4 N Lvl) [facility] HospitalNdttidgWBTIIMBFN9886-08-92 06:52:00 Test Item Value Reference Range Interpretation Comments BUN (test code = BUN) 17 7-22 N [facility] HospitalUagykzgHTYKMQUPS1603-79-62 06:52:00 Test Item Value Reference Range Interpretation Comments Sodium Lvl (test code = Sodium Lvl) 140 135-145 N [facility] HospitalKlbflnePAFFGGTKB7090-35-09 06:52:00 Test Item Value Reference Range Interpretation Comments Chloride Lvl (test code = Chloride Lvl) 105 95-109 N [facility] HospitalKejtnblCMWPZQNUK7951-90-56 06:52:00 Test Item Value Reference Range Interpretation Comments Calcium Lvl (test code = Calcium Lvl) 9.7 8.5-10.5 N [facility] HospitalDndiqmqXEGMULXJJ6748-11-21 06:52:00 Test Item Value Reference Range Interpretation Comments Potassium Lvl (test code = Potassium 4.4 3.5-5.1 N Lvl) [facility] HospitalEvfexhzHBJKXYSGX3240-74-53 06:52:00 Test Item Value Reference Range Interpretation Comments CO2 (test code = CO2) 26 24-32 N [facility] HospitalPvkeigwIHPAZHJEM1285-72-09 06:52:00 Test Item Value Reference Range Interpretation Comments eGFR (test code = eGFR) 65 [facility] HospitalOisvwovHODAOMKRU3374-44-92 06:52:00 Test Item Value Reference Range Interpretation Comments Magnesium Lvl (test code = Magnesium 1.5 1.8-2.4 L Lvl) [facility] PasoIsnkamsVEDDLVNIPC6534-48-14 06:52:00 Test Item Value Reference Range Interpretation Comments RBC (test code = RBC) 4.85 4.20-5.40 N [facility] PasoOfldnkkJARMKFSRTC5493-14-21 06:52:00 Test Item Value Reference Range Interpretation Comments WBC (test code = WBC) 9.2 3.7-10.4 N [facility] PasoHucwioqRLNOJSFOAD2212-82-19 06:52:00 Test Item Value Reference Range Interpretation Comments Hgb (test code = Hgb) 14.9 12.0-16.0 N [facility] PasoLbzbqzdGQJLJJNGYH1061-38-12 06:52:00 Test Item Value Reference Range Interpretation Comments MCHC (test code = MCHC) 33.3 32.0-36.0 N [facility] PasoAolrtuwXGXKIIPGTC1051-16-89 06:52:00 Test Item Value Reference Range Interpretation Comments MCH (test code = MCH) 30.7 pg 27.0-31.0 N [facility] PasoUkjpqybMIUDOSDHKC9407-15-22 06:52:00 Test Item Value Reference Range Interpretation Comments Hct (test code = Hct) 44.9 36.0-48.0 N [facility] PasoLnhebbcQXRYBQCQGA1560-30-68 06:52:00 Test Item Value Reference Range Interpretation Comments MCV (test code = MCV) 92.4 81.0-99.0 N [facility] PasoTplqrhzTEZGYGSTES4592-48-70 06:52:00 Test Item Value Reference Range Interpretation Comments RDW (test code = RDW) 14.5 11.5-14.5 N [facility] PasoJzxzcalTTQMYTGGJX0890-87-68 06:52:00 Test Item Value Reference Range Interpretation Comments Platelet (test code = Platelet) 213 133-450 N [facility] PasoFsfjuheCRJUHYEWBJ1171-97-44 06:52:00 Test Item Value Reference Range Interpretation Comments MPV (test code = MPV) 9.5 7.4-10.4 N [facility] PasoOjamkszHZWLSUQHHF2452-91-71 06:52:00 Test Item Value Reference Range Interpretation Comments Segs-Bands # (test code = Segs-Bands #) 7.7 1.5-8.1 N [facility] PasoGudphopDLCINXGAYX2279-92-61 06:52:00 Test Item Value Reference Range Interpretation Comments Basophils (test code = 0.3 See_Comment N [Aut omated message] The Basophils) system which ge nerated this result tra nsmitted reference range : <=1.0. The reference r leatha was not used to int erpret this result as normal/abnormal . [facility] PasoYbicxsdPQSASSVGEK8714-70-69 06:52:00 Test Item Value Reference Range Interpretation Comments Monocytes # (test code 0.6 See_Comment N [Aut omated message] The = Monocytes #) system which generated this result tra nsmitted reference range : <=0.8. The reference r leatha was not used to int erpret this result as normal/abnormal . [facility] PasoCtxwcgeWYIFZFZZIW1782-80-17 06:52:00 Test Item Value Reference Range Interpretation Comments Lymphocytes # (test code = Lymphocytes 0.9 1.0-5.5 L #) [facility] PasoCdgzqdkOVRVYPXNNR8823-73-29 06:52:00 Test Item Value Reference Range Interpretation Comments Lymphocytes (test code = Lymphocytes) 9.5 20.0-40.0 L [facility] PasoVbdvjhePODTUZLJZS4976-95-90 06:52:00 Test Item Value Reference Range Interpretation Comments Segs (test code = Segs) 84.1 45.0-75.0 H [facility] PasoJohaawwGQUTIFOTCG7378-98-67 06:52:00 Test Item Value Reference Range Interpretation Comments Monocytes (test code = Monocytes) 6.0 2.0-12.0 N [facility] PasoXolzllpSMQBCIOHOQ6643-66-41 06:52:00 Test Item Value Reference Range Interpretation Comments Eosinophils (test code = 0.1 See_Comment N [A utomated message] The Eosinophils) system which ge nerated this result tra nsmitted reference range : <=4.0. The reference r leatha was not used to int erpret this result as normal/abnormal . [facility] HospitalAhzharoMVTXFVJRT7516-35-67 06:52:00 Test Item Value Reference Range Interpretation Comments Phosphorus (test code = Phosphorus) 3.5 2.5-4.5 N [facility] HospitalYlvrcmfUJEJKVFCU5391-55-71 06:52:00 Test Item Value Reference Range Interpretation Comments AGAP (test code = AGAP) 13.4 10.0-20.0 N [facility] HospitalFvimnjpBMQXIAFAZ1597-07-35 06:52:00 Test Item Value Reference Range Interpretation Comments Glucose Lvl (test code = Glucose Lvl) 181 70-99 H [facility] HospitalHmvlbvcPRIQTBSLG5458-87-73 06:52:00 Test Item Value Reference Range Interpretation Comments Creatinine Lvl (test code = Creatinine 0.9 0.5-1.4 N Lvl) [facility] HospitalAolvofcEIUMWDGBG0214-15-96 06:52:00 Test Item Value Reference Range Interpretation Comments BUN (test code = BUN) 17 7-22 N [facility] HospitalQfxztizUCNDPNUWT7004-42-70 06:52:00 Test Item Value Reference Range Interpretation Comments Sodium Lvl (test code = Sodium Lvl) 140 135-145 N [facility] HospitalMojstsqLOQSEXUHP4300-36-10 06:52:00 Test Item Value Reference Range Interpretation Comments Chloride Lvl (test code = Chloride Lvl) 105 95-109 N [facility] HospitalYobmzalHEPCZRFQA7507-98-27 06:52:00 Test Item Value Reference Range Interpretation Comments Calcium Lvl (test code = Calcium Lvl) 9.7 8.5-10.5 N [facility] HospitalOlkjteaBHTPZKFVN0041-97-58 06:52:00 Test Item Value Reference Range Interpretation Comments Potassium Lvl (test code = Potassium 4.4 3.5-5.1 N Lvl) [facility] HospitalMcqczqxICZZPIMLC2846-82-82 06:52:00 Test Item Value Reference Range Interpretation Comments CO2 (test code = CO2) 26 24-32 N [facility] HospitalBmyxmxhXEWJEGWMJ6687-36-90 06:52:00 Test Item Value Reference Range Interpretation Comments eGFR (test code = eGFR) 65 [facility] HospitalGpemobaTONOVQMHX2426-54-60 06:52:00 Test Item Value Reference Range Interpretation Comments Magnesium Lvl (test code = Magnesium 1.5 1.8-2.4 L Lvl) [facility] PasoDlvtaigDWTTJUEVJE1293-97-76 06:52:00 Test Item Value Reference Range Interpretation Comments RBC (test code = RBC) 4.85 4.20-5.40 N [facility] PasoTnkrmbaHBGVEDCJJI6213-02-82 06:52:00 Test Item Value Reference Range Interpretation Comments WBC (test code = WBC) 9.2 3.7-10.4 N [facility] PasoWmmyexcXSUASQIWPG2052-35-36 06:52:00 Test Item Value Reference Range Interpretation Comments Hgb (test code = Hgb) 14.9 12.0-16.0 N [facility] PasoKomejbyAYMGUDHUOE3518-26-58 06:52:00 Test Item Value Reference Range Interpretation Comments MCHC (test code = MCHC) 33.3 32.0-36.0 N [facility] PasoBhookmcJXULMQHLGE9646-46-08 06:52:00 Test Item Value Reference Range Interpretation Comments MCH (test code = MCH) 30.7 pg 27.0-31.0 N [facility] PasoMqaosfzHNLGHVRSWC4516-83-55 06:52:00 Test Item Value Reference Range Interpretation Comments Hct (test code = Hct) 44.9 36.0-48.0 N [facility] PasoNouzsvwXDHMJEQQDE5225-23-57 06:52:00 Test Item Value Reference Range Interpretation Comments MCV (test code = MCV) 92.4 81.0-99.0 N [facility] PasoRrtjsdrMRXCFJYYLC0976-73-38 06:52:00 Test Item Value Reference Range Interpretation Comments RDW (test code = RDW) 14.5 11.5-14.5 N [facility] PasoAmvnaqjSTIQPACIIP9104-30-46 06:52:00 Test Item Value Reference Range Interpretation Comments Platelet (test code = Platelet) 213 133-450 N [facility] PasoTyiijbzWXWZHOHGTX7962-35-21 06:52:00 Test Item Value Reference Range Interpretation Comments MPV (test code = MPV) 9.5 7.4-10.4 N [facility] PasoFaokxjpNAWOBFBLBX5000-04-08 06:52:00 Test Item Value Reference Range Interpretation Comments Segs-Bands # (test code = Segs-Bands #) 7.7 1.5-8.1 N [facility] PasoZebmxumPFAVXDONOI8336-67-37 06:52:00 Test Item Value Reference Range Interpretation Comments Basophils (test code = 0.3 See_Comment N [Aut omated message] The Basophils) system which ge nerated this result tra nsmitted reference range : <=1.0. The reference r leatha was not used to int erpret this result as normal/abnormal . [facility] PasoYzsfitfMBZUYFBZLM7594-89-23 06:52:00 Test Item Value Reference Range Interpretation Comments Monocytes # (test code 0.6 See_Comment N [Aut omated message] The = Monocytes #) system which generated this result tra nsmitted reference range : <=0.8. The reference r leatha was not used to int erpret this result as normal/abnormal . [facility] PasoCzotvffWDYDCFSVBL5625-37-37 06:52:00 Test Item Value Reference Range Interpretation Comments Lymphocytes # (test code = Lymphocytes 0.9 1.0-5.5 L #) [facility] PasoZeddetzVPMNMTDBZV1061-00-81 06:52:00 Test Item Value Reference Range Interpretation Comments Lymphocytes (test code = Lymphocytes) 9.5 20.0-40.0 L [facility] PasoTbeobwbMGZTVLGISH8943-20-87 06:52:00 Test Item Value Reference Range Interpretation Comments Segs (test code = Segs) 84.1 45.0-75.0 H [facility] PasoMjekwdnMLMZNDKBAB2239-87-05 06:52:00 Test Item Value Reference Range Interpretation Comments Monocytes (test code = Monocytes) 6.0 2.0-12.0 N [facility] PasoRgwmotbCYNIZTRHCK8944-54-46 06:52:00 Test Item Value Reference Range Interpretation Comments Eosinophils (test code = 0.1 See_Comment N [A utomated message] The Eosinophils) system which ge nerated this result tra nsmitted reference range : <=4.0. The reference r leatha was not used to int erpret this result as normal/abnormal . [facility] HospitalLalxujwVDXXRPUNF3428-01-16 06:52:00 Test Item Value Reference Range Interpretation Comments Phosphorus (test code = Phosphorus) 3.5 2.5-4.5 N [facility] HospitalVgvrjvcPZONBQJGU8752-50-85 06:52:00 Test Item Value Reference Range Interpretation Comments AGAP (test code = AGAP) 13.4 10.0-20.0 N [facility] HospitalFpjuviaQKRPYTTOO7247-03-35 06:52:00 Test Item Value Reference Range Interpretation Comments Glucose Lvl (test code = Glucose Lvl) 181 70-99 H [facility] HospitalWreunyuBKMUQXFCK7426-27-81 06:52:00 Test Item Value Reference Range Interpretation Comments Creatinine Lvl (test code = Creatinine 0.9 0.5-1.4 N Lvl) [facility] HospitalTwrepbnHEOUMZFBN7770-75-28 06:52:00 Test Item Value Reference Range Interpretation Comments BUN (test code = BUN) 17 7-22 N [facility] HospitalDapbaluAZSFWMABU5888-97-92 06:52:00 Test Item Value Reference Range Interpretation Comments Sodium Lvl (test code = Sodium Lvl) 140 135-145 N [facility] HospitalPqynlgzHKRUQUDZL7924-11-55 06:52:00 Test Item Value Reference Range Interpretation Comments Chloride Lvl (test code = Chloride Lvl) 105 95-109 N [facility] HospitalDcihacdGPVJNSBZS9944-33-89 06:52:00 Test Item Value Reference Range Interpretation Comments Calcium Lvl (test code = Calcium Lvl) 9.7 8.5-10.5 N [facility] HospitalKorohpnHHLRNVEIL8475-39-93 06:52:00 Test Item Value Reference Range Interpretation Comments Potassium Lvl (test code = Potassium 4.4 3.5-5.1 N Lvl) [facility] HospitalTbfttonISHMZKQGQ4473-88-01 06:52:00 Test Item Value Reference Range Interpretation Comments CO2 (test code = CO2) 26 24-32 N [facility] HospitalNattjduOUAFULWVR6129-80-27 06:52:00 Test Item Value Reference Range Interpretation Comments eGFR (test code = eGFR) 65 [facility] HospitalOixmhdjMOCBHBBQY9436-72-31 06:52:00 Test Item Value Reference Range Interpretation Comments Magnesium Lvl (test code = Magnesium 1.5 1.8-2.4 L Lvl) [facility] PasoEtdyjlfJDUYAUVLJA9348-35-63 06:52:00 Test Item Value Reference Range Interpretation Comments RBC (test code = RBC) 4.85 4.20-5.40 N [facility] PasoTbhjuywMWOALNBPZH6336-48-87 06:52:00 Test Item Value Reference Range Interpretation Comments WBC (test code = WBC) 9.2 3.7-10.4 N [facility] PasoYfwkodjPKEYQNVZMH6516-29-26 06:52:00 Test Item Value Reference Range Interpretation Comments Hgb (test code = Hgb) 14.9 12.0-16.0 N [facility] PasoKuxtzxaBSARZBJVBE0252-13-23 06:52:00 Test Item Value Reference Range Interpretation Comments MCHC (test code = MCHC) 33.3 32.0-36.0 N [facility] PasoGsamvhpIOFTXQRTDM3854-94-52 06:52:00 Test Item Value Reference Range Interpretation Comments MCH (test code = MCH) 30.7 pg 27.0-31.0 N [facility] PasoTborzbgEGTDVHGKAG7267-25-92 06:52:00 Test Item Value Reference Range Interpretation Comments Hct (test code = Hct) 44.9 36.0-48.0 N [facility] PasoLvolurlUSHDWXKXKG8788-85-35 06:52:00 Test Item Value Reference Range Interpretation Comments MCV (test code = MCV) 92.4 81.0-99.0 N [facility] PasoUnnrhwyCICBFXEMZS2441-79-31 06:52:00 Test Item Value Reference Range Interpretation Comments RDW (test code = RDW) 14.5 11.5-14.5 N [facility] PasoLdaizkwOQNPYRLCKY1477-38-90 06:52:00 Test Item Value Reference Range Interpretation Comments Platelet (test code = Platelet) 213 133-450 N [facility] PasoHajzsulPVGQVXUGST3922-79-51 06:52:00 Test Item Value Reference Range Interpretation Comments MPV (test code = MPV) 9.5 7.4-10.4 N [facility] PasoBjaahqsIAUAAKCBEG4996-37-96 06:52:00 Test Item Value Reference Range Interpretation Comments Segs-Bands # (test code = Segs-Bands #) 7.7 1.5-8.1 N [facility] PasoWivmifbBWLVTGCAXG3971-33-54 06:52:00 Test Item Value Reference Range Interpretation Comments Basophils (test code = 0.3 See_Comment N [Aut omated message] The Basophils) system which ge nerated this result tra nsmitted reference range : <=1.0. The reference r leatha was not used to int erpret this result as normal/abnormal . [facility] PasoPhcdkihENNDZEOMLQ7659-51-11 06:52:00 Test Item Value Reference Range Interpretation Comments Monocytes # (test code 0.6 See_Comment N [Aut omated message] The = Monocytes #) system which generated this result tra nsmitted reference range : <=0.8. The reference r leatha was not used to int erpret this result as normal/abnormal . [facility] PasoCmqqvimGBRXTEKURD9222-53-63 06:52:00 Test Item Value Reference Range Interpretation Comments Lymphocytes # (test code = Lymphocytes 0.9 1.0-5.5 L #) [facility] PasoYpwmdhkXABLLENPVL1637-64-93 06:52:00 Test Item Value Reference Range Interpretation Comments Lymphocytes (test code = Lymphocytes) 9.5 20.0-40.0 L [facility] PasoFbadfsnJNIIEDGMUJ5674-84-38 06:52:00 Test Item Value Reference Range Interpretation Comments Segs (test code = Segs) 84.1 45.0-75.0 H [facility] PasoVeufiqaWHOXNMBUZJ2403-53-80 06:52:00 Test Item Value Reference Range Interpretation Comments Monocytes (test code = Monocytes) 6.0 2.0-12.0 N [facility] PasoYizmcuxCWGNISNJQH2440-46-80 06:52:00 Test Item Value Reference Range Interpretation Comments Eosinophils (test code = 0.1 See_Comment N [A utomated message] The Eosinophils) system which ge nerated this result tra nsmitted reference range : <=4.0. The reference r leatha was not used to int erpret this result as normal/abnormal . [facility] HospitalHsftnpmOOVRADVOH2324-21-72 19:08:00 Test Item Value Reference Range Interpretation Comments POC A Glu (test code = POC A Glu) 152 70-99 H [facility] HospitalTqffnryRKISOQWVE4931-39-57 19:08:00 Test Item Value Reference Range Interpretation Comments POC A LA (test code = POC A LA) 0.7 0.5-2.2 N [facility] HospitalNqfecprPEBSUOAWC8515-44-62 19:08:00 Test Item Value Reference Range Interpretation Comments POC A HCO3 (test code = POC A HCO3) 24 22-26 N [facility] HospitalQkekcwyALKMSBQAX1909-51-74 19:08:00 Test Item Value Reference Range Interpretation Comments POC A BE (test code = -1 See_Comment N [Auto mated message] The POC A BE) system which ge nerated this result transmit juan reference range : <=2. The reference range was not used to interpr et this result as lashonda l/abnormal. [facility] HospitalDeoxmjaWNGUYTOVG5968-21-39 19:08:00 Test Item Value Reference Range Interpretation Comments POC A Hct (test code = POC A Hct) 35.0 36.0-48.0 L [facility] HospitalJimhhziQVMGAPCAP1314-03-34 19:08:00 Test Item Value Reference Range Interpretation Comments POC A O2 Sat (test code = POC A O2 Sat) 96.0 95.0-100.0 N [facility] HospitalSfkfhhtMYZQTWIPZ8918-65-82 19:08:00 Test Item Value Reference Range Interpretation Comments POC A K (test code = POC A K) 3.4 3.5-5.1 L [facility] HospitalCbjjaruEJUSCKUJA2519-45-80 19:08:00 Test Item Value Reference Range Interpretation Comments POC A Na (test code = POC A Na) 138 135-145 N [facility] HospitalCfyswvzHOPHOQVIO3067-18-64 19:08:00 Test Item Value Reference Range Interpretation Comments POC A PCO2 (test code = POC A PCO2) 40 35-45 N [facility] HospitalFnejfeuWIHOGMTZP7835-90-77 19:08:00 Test Item Value Reference Range Interpretation Comments POC A Ca Ion (test code = POC A Ca Ion) 1.26 1.16-1.30 N [facility] HospitalUskenoxJMHJLIOBR2395-50-94 19:08:00 Test Item Value Reference Range Interpretation Comments POC A Source (test code = POC A Source) ART [facility] HospitalMpaaxfwYTKRDFXLP5453-67-39 19:08:00 Test Item Value Reference Range Interpretation Comments POC A Temp (test code = POC A Temp) 37.0 [facility] HospitalNaishcjDMDBXZXEO5598-89-21 19:08:00 Test Item Value Reference Range Interpretation Comments POC A PO2 (test code = POC A PO2) 85 80-100 N [facility] HospitalGrenlcbGQZGNICQO2501-85-09 19:08:00 Test Item Value Reference Range Interpretation Comments POC A pH (test code = POC A pH) 7.39 7.35-7.45 N [facility] HospitalBzouwvoVVYZFLWKW1620-89-66 19:08:00 Test Item Value Reference Range Interpretation Comments POC A Glu (test code = POC A Glu) 152 70-99 H [facility] HospitalAwycgfgJZFIDCBNG3141-20-34 19:08:00 Test Item Value Reference Range Interpretation Comments POC A LA (test code = POC A LA) 0.7 0.5-2.2 N [facility] HospitalNpcjfcdZWVQIYLIW7999-12-73 19:08:00 Test Item Value Reference Range Interpretation Comments POC A HCO3 (test code = POC A HCO3) 24 22-26 N [facility] HospitalRjfcrbrHPNOTYADO4602-84-71 19:08:00 Test Item Value Reference Range Interpretation Comments POC A BE (test code = -1 See_Comment N [Auto mated message] The POC A BE) system which ge nerated this result transmit juan reference range : <=2. The reference range was not used to interpr et this result as lashonda l/abnormal. [facility]QdzntkwHEKQCMEIZ1497-69-99 19:08:00 Test Item Value Reference Range Interpretation Comments POC A Hct (test code = POC A Hct) 35.0 36.0-48.0 L [facility] HospitalAwjyuzfETJVWPADS8057-47-97 19:08:00 Test Item Value Reference Range Interpretation Comments POC A O2 Sat (test code = POC A O2 Sat) 96.0 95.0-100.0 N [facility] HospitalZdcqiugRIRADSKDY1828-21-41 19:08:00 Test Item Value Reference Range Interpretation Comments POC A K (test code = POC A K) 3.4 3.5-5.1 L [facility] HospitalYsxjcffTALRYIYSG4500-34-54 19:08:00 Test Item Value Reference Range Interpretation Comments POC A Na (test code = POC A Na) 138 135-145 N [facility] HospitalPlwrxreZBQBBGCXR3603-87-52 19:08:00 Test Item Value Reference Range Interpretation Comments POC A PCO2 (test code = POC A PCO2) 40 35-45 N [facility] HospitalBfaxahbSZZUCVLFZ5378-42-11 19:08:00 Test Item Value Reference Range Interpretation Comments POC A Ca Ion (test code = POC A Ca Ion) 1.26 1.16-1.30 N [facility] HospitalDclqikpCOQYRHDGA0262-23-21 19:08:00 Test Item Value Reference Range Interpretation Comments POC A Source (test code = POC A Source) ART [facility] HospitalNhdlinlKWIMGINEK4989-26-45 19:08:00 Test Item Value Reference Range Interpretation Comments POC A Temp (test code = POC A Temp) 37.0 [facility] HospitalOmumtacOWEFQAHKQ7742-58-26 19:08:00 Test Item Value Reference Range Interpretation Comments POC A PO2 (test code = POC A PO2) 85 80-100 N [facility] HospitalDjrmdwkKEWKNNKGM3564-94-72 19:08:00 Test Item Value Reference Range Interpretation Comments POC A pH (test code = POC A pH) 7.39 7.35-7.45 N [facility] HospitalDqbiqqtMRGYGOAPK9032-28-91 19:08:00 Test Item Value Reference Range Interpretation Comments POC A Glu (test code = POC A Glu) 152 70-99 H [facility] HospitalAmpsatdCWMEYYBMD2011-05-88 19:08:00 Test Item Value Reference Range Interpretation Comments POC A LA (test code = POC A LA) 0.7 0.5-2.2 N [facility] HospitalJctmukrPCUDZCGRC9122-01-58 19:08:00 Test Item Value Reference Range Interpretation Comments POC A HCO3 (test code = POC A HCO3) 24 22-26 N [facility] HospitalNhkyelcAFDYHSKYI5856-31-54 19:08:00 Test Item Value Reference Range Interpretation Comments POC A BE (test code = -1 See_Comment N [Auto mated message] The POC A BE) system which ge nerated this result transmit juan reference range : <=2. The reference range was not used to interpr et this result as lashonda l/abnormal. [facility] HospitalVqwysttKXFMRHZSS5833-96-87 19:08:00 Test Item Value Reference Range Interpretation Comments POC A Hct (test code = POC A Hct) 35.0 36.0-48.0 L [facility] HospitalDdlohtoPPUIKRTNW8831-86-15 19:08:00 Test Item Value Reference Range Interpretation Comments POC A O2 Sat (test code = POC A O2 Sat) 96.0 95.0-100.0 N [facility] HospitalAbvpqhmSCNCJEBFA7738-09-14 19:08:00 Test Item Value Reference Range Interpretation Comments POC A K (test code = POC A K) 3.4 3.5-5.1 L [facility] HospitalDtcrktiVAVFRNABJ4661-46-77 19:08:00 Test Item Value Reference Range Interpretation Comments POC A Na (test code = POC A Na) 138 135-145 N [facility] HospitalWazifaoTSVQEYWGL3953-60-02 19:08:00 Test Item Value Reference Range Interpretation Comments POC A PCO2 (test code = POC A PCO2) 40 35-45 N [facility] HospitalRtyafuiRDBDDPAQU6306-94-21 19:08:00 Test Item Value Reference Range Interpretation Comments POC A Ca Ion (test code = POC A Ca Ion) 1.26 1.16-1.30 N [facility] HospitalYcoehpzAFPLUXOSZ9398-91-42 19:08:00 Test Item Value Reference Range Interpretation Comments POC A Source (test code = POC A Source) ART [facility] HospitalKhqmktzURRZHIDTQ3759-91-13 19:08:00 Test Item Value Reference Range Interpretation Comments POC A Temp (test code = POC A Temp) 37.0 [facility] HospitalHfvpvgeOYKQHKQKR8245-12-77 19:08:00 Test Item Value Reference Range Interpretation Comments POC A PO2 (test code = POC A PO2) 85 80-100 N [facility] HospitalBgfpytkQDTRCQIJG0903-63-62 19:08:00 Test Item Value Reference Range Interpretation Comments POC A pH (test code = POC A pH) 7.39 7.35-7.45 N [facility] HospitalFgrifsiWUXOMAHJK6270-21-84 17:27:00 Test Item Value Reference Range Interpretation Comments POC A PCO2 (test code = POC A PCO2) 44 35-45 N [facility] HospitalOpkfmjjRNYJXILZV7542-02-51 17:27:00 Test Item Value Reference Range Interpretation Comments POC A BE (test code = 1 See_Comment N [Auto mated message] The POC A BE) system which ge nerated this result transmit juan reference range : <=2. The reference range was not used to interpr et this result as lashonda l/abnormal. [facility] HospitalAylojtaVLNWGHUVE6751-64-24 17:27:00 Test Item Value Reference Range Interpretation Comments POC A HCO3 (test code = POC A HCO3) 26 22-26 N [facility] HospitalJspcytcPBUZKTNQI6431-23-77 17:27:00 Test Item Value Reference Range Interpretation Comments POC A PO2 (test code = POC A PO2) 161 80-100 H [facility] HospitalBuaisrwGEYCQAILW8793-78-85 17:27:00 Test Item Value Reference Range Interpretation Comments POC A Na (test code = POC A Na) 137 135-145 N [facility] HospitalCidbkkgCGZLXBAWZ8348-62-47 17:27:00 Test Item Value Reference Range Interpretation Comments POC A Ca Ion (test code = POC A Ca Ion) 1.29 1.16-1.30 N [facility] HospitalSiprbdpVBRZUKGSS6615-61-74 17:27:00 Test Item Value Reference Range Interpretation Comments POC A O2 Sat (test code = POC A O2 Sat) 99.0 95.0-100.0 N [facility] HospitalKfehgzfTZCSWTTUH4883-81-73 17:27:00 Test Item Value Reference Range Interpretation Comments POC A K (test code = POC A K) 3.9 3.5-5.1 N [facility] HospitalTrqaizzGEFTVSCTJ8282-58-57 17:27:00 Test Item Value Reference Range Interpretation Comments POC A Hct (test code = POC A Hct) 38.0 36.0-48.0 N [facility] HospitalVvvmcejCKTMJBXSF2331-14-87 17:27:00 Test Item Value Reference Range Interpretation Comments POC A Source (test code = POC A Source) ART [facility] HospitalRplnpbwXPDKAJGYT8812-04-66 17:27:00 Test Item Value Reference Range Interpretation Comments POC A pH (test code = POC A pH) 7.38 7.35-7.45 N [facility] HospitalBnzctdtOUDGFWVIC5422-19-66 17:27:00 Test Item Value Reference Range Interpretation Comments POC A Temp (test code = POC A Temp) 37.0 [facility] HospitalUomvzueEIBSAZBVM2431-89-18 17:27:00 Test Item Value Reference Range Interpretation Comments POC A Glu (test code = POC A Glu) 150 70-99 H [facility] HospitalSgajpacLDERAHERZ7150-14-37 17:27:00 Test Item Value Reference Range Interpretation Comments POC A LA (test code = POC A LA) 1.1 0.5-2.2 N [facility] HospitalVmgmyjoWXVBBYNMN7782-47-31 17:27:00 Test Item Value Reference Range Interpretation Comments POC A PCO2 (test code = POC A PCO2) 44 35-45 N [facility] HospitalUmwtyroIHPMPADAB5664-64-46 17:27:00 Test Item Value Reference Range Interpretation Comments POC A BE (test code = 1 See_Comment N [Auto mated message] The POC A BE) system which ge nerated this result transmit juan reference range : <=2. The reference range was not used to interpr et this result as lashonda l/abnormal. [facility] HospitalXovfzqzTZNVDFJCQ9922-96-72 17:27:00 Test Item Value Reference Range Interpretation Comments POC A HCO3 (test code = POC A HCO3) 26 22-26 N [facility] HospitalUuleqxaEMAIKSVDR1130-12-16 17:27:00 Test Item Value Reference Range Interpretation Comments POC A PO2 (test code = POC A PO2) 161 80-100 H [facility] HospitalWgqlibwUVZTMRWMN4718-38-88 17:27:00 Test Item Value Reference Range Interpretation Comments POC A Na (test code = POC A Na) 137 135-145 N [facility] HospitalLohdrnlVHZVOPXEC1114-52-18 17:27:00 Test Item Value Reference Range Interpretation Comments POC A Ca Ion (test code = POC A Ca Ion) 1.29 1.16-1.30 N [facility] HospitalPubzgqrJWGRTNZZQ1497-13-25 17:27:00 Test Item Value Reference Range Interpretation Comments POC A O2 Sat (test code = POC A O2 Sat) 99.0 95.0-100.0 N [facility] HospitalPfzkhcmEWUSCIAAG4492-26-54 17:27:00 Test Item Value Reference Range Interpretation Comments POC A K (test code = POC A K) 3.9 3.5-5.1 N [facility] HospitalPtyzszvOXBLKRLMT7129-90-88 17:27:00 Test Item Value Reference Range Interpretation Comments POC A Hct (test code = POC A Hct) 38.0 36.0-48.0 N [facility] HospitalEdqsuqgXHPFPWKDE4788-16-83 17:27:00 Test Item Value Reference Range Interpretation Comments POC A Source (test code = POC A Source) ART [facility] HospitalUfiteqtZQRJWDEOM9022-58-66 17:27:00 Test Item Value Reference Range Interpretation Comments POC A pH (test code = POC A pH) 7.38 7.35-7.45 N [facility] HospitalZjwpiozTBWIHBHCT1315-06-08 17:27:00 Test Item Value Reference Range Interpretation Comments POC A Temp (test code = POC A Temp) 37.0 [facility] HospitalVfwilwsLERIRWWZZ0186-27-10 17:27:00 Test Item Value Reference Range Interpretation Comments POC A Glu (test code = POC A Glu) 150 70-99 H [facility] HospitalKybaklvZXLOMIFWD9736-32-57 17:27:00 Test Item Value Reference Range Interpretation Comments POC A LA (test code = POC A LA) 1.1 0.5-2.2 N [facility] HospitalLcqcvaxRILZGJBIS4336-38-94 17:27:00 Test Item Value Reference Range Interpretation Comments POC A PCO2 (test code = POC A PCO2) 44 35-45 N [facility] HospitalOsvkhriBPQVBTBHS9740-11-36 17:27:00 Test Item Value Reference Range Interpretation Comments POC A BE (test code = 1 See_Comment N [Auto mated message] The POC A BE) system which ge nerated this result transmit juan reference range : <=2. The reference range was not used to interpr et this result as lashonda l/abnormal. [facility] HospitalZuglqkuHRTFKUHXB3912-66-90 17:27:00 Test Item Value Reference Range Interpretation Comments POC A HCO3 (test code = POC A HCO3) 26 22-26 N [facility] HospitalRfxmyxyMNXPNSWKP7127-60-71 17:27:00 Test Item Value Reference Range Interpretation Comments POC A PO2 (test code = POC A PO2) 161 80-100 H [facility] HospitalEgwhocgXBXDMRNWP0194-08-35 17:27:00 Test Item Value Reference Range Interpretation Comments POC A Na (test code = POC A Na) 137 135-145 N [facility] HospitalBsacbycFLBLAIWKV2540-32-47 17:27:00 Test Item Value Reference Range Interpretation Comments POC A Ca Ion (test code = POC A Ca Ion) 1.29 1.16-1.30 N [facility] HospitalFtwgxxvYSPUEBGQZ0373-19-86 17:27:00 Test Item Value Reference Range Interpretation Comments POC A O2 Sat (test code = POC A O2 Sat) 99.0 95.0-100.0 N [facility] HospitalNyezyxcUMHWMWZZM8018-14-06 17:27:00 Test Item Value Reference Range Interpretation Comments POC A K (test code = POC A K) 3.9 3.5-5.1 N [facility] HospitalYnsilwrZJDBXTWRF4473-37-32 17:27:00 Test Item Value Reference Range Interpretation Comments POC A Hct (test code = POC A Hct) 38.0 36.0-48.0 N [facility]wtnbesVWKSFTBFM7053-81-73 17:27:00 Test Item Value Reference Range Interpretation Comments POC A Source (test code = POC A Source) [facility]ZkjqjlaUNQHRHZQL4532-97-87 17:27:00 Test Item Value Reference Range Interpretation Comments POC A pH (test code = POC A pH) 7.38 7.35-7.45 N [facility] CenterBfuvehuOAGDXEBKB4133-21-79 17:27:00 Test Item Value Reference Range Interpretation Comments POC A Temp (test code = POC A Temp) 37.0 [facility]WlohbuvAJEIOCJII3761-54-82 17:27:00 Test Item Value Reference Range Interpretation Comments POC A Glu (test code = POC A Glu) 150 70-99 H [facility] HospitalUrgeuamZYEWLKLUB1848-63-37 17:27:00 Test Item Value Reference Range Interpretation Comments POC A LA (test code = POC A LA) 1.1 0.5-2.2 N [facility] AMCPLJL4696-51-68 14:25:00 Test Item Value Reference Range Interpretation Comments ABO/Rh (test code = ABO/Rh) A NEG [facility] [id number] 14:25:00 Test Item Value Reference Range Interpretation Comments Antibody Scrn (test Negative (10/03/2012 N code = Antibody Scrn) 09:25:00) [facility] [id number] 14:25:00 Test Item Value Reference Range Interpretation Comments ABO/Rh (test code = ABO/Rh) A NEG [facility] [id number] 14:25:00 Test Item Value Reference Range Interpretation Comments Antibody Scrn (test Negative (10/03/2012 N code = Antibody Scrn) 09:25:00) [facility] [id number] 14:25:00 Test Item Value Reference Range Interpretation Comments ABO/Rh (test code = ABO/Rh) A NEG [facility] [id number] 14:25:00 Test Item Value Reference Range Interpretation Comments Antibody Scrn (test Negative (10/03/2012 N code = Antibody Scrn) 09:25:00) Elvira Butler
[2022-07-13] MEDS ORDERED: HYDROCODONE/APAP 5/325 MG TAB ONE ×2 (17:05→20:27)
--- NOTE | 2022-07-13 17:51 | RAD REPORT ---
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
--- NOTE | 2022-07-13 17:52 | RAD REPORT ---
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 No dislocation Mildly displaced fracture fibular neck
--- NOTE | 2022-07-13 17:53 | RAD REPORT ---
EXAM DESCRIPTION: RAD - Knee Left 3 View - 07/13/2022 5:39 pm CLINICAL HISTORY: Left knee pain FINDINGS: No fracture or dislocation is seen. The prosthesis is in good position without evidence of loosening
--- NOTE | 2022-07-13 17:54 | RAD REPORT ---
EXAM DESCRIPTION: RAD - Pelvis - 07/13/2022 5:38 pm CLINICAL HISTORY: Pelvic pain status post injury FINDINGS: No fracture or dislocation is seen. If the patient continues to have symptoms to suggest an occult fracture then MRI would be recommended
--- NOTE | 2022-07-13 18:39 | EDPHYS ---
Physician Documentation [facility] Name: Kate Love Age: 81 yrs Sex: Female : 1940 Arrival Date: 07/13/2022 Time: 16:04 Bed 6 Private MD: ED Physician Akira Morales HPI: 07/13 16:12 This 81 yrs old Female presents to ER via EMS with complaints of Fall Injury. jmm 16:12 Details of fall: The patient fell from an upright position. Onset: The symptoms/episode jmm began/occurred acutely, just prior to arrival. Associated injuries: The patient sustained Right and left lower extremity. Is an 81-year-old female with history of asthma, coronary artery disease, diabetes mellitus, hyperlipidemia, hypertension the presents emerged part with complaints of right and left leg pain which occurred after a fall which occurred just prior to arrival. Patient states that he put weight on the right knee trying to get into her home and collapsed. Patient states that she felt her knee give way. Denies hitting her head.. Historical: - Allergies: 16:06 No Known Allergies; kc6 - Home Meds: 17:09 carvedilol 12.5 mg Oral tab 2 times per day [Active]; clonidine HCl 0.1 mg Oral Tb12 as kc6 needed for Hypertension [Active]; aspirin 81 mg Oral TbEC 1 tab once daily [Active]; furosemide 20 mg Oral tab 1 tab once daily [Active]; Vitamin D Oral 1,000 unit WEEKLY [Active]; Soliqua 54 unit before breakfast [Active]; irbesartan 300 mg Oral tab 1 tab once daily [Active]; hydralazine 25 mg oral tab 1 tab [Active]; ezetimibe 10 mg oral tab 1 tab [Active]; 20:42 amlodipine 5 mg oral tab [Active]; Breo Ellipta 100-25 mcg/dose inhalation dsdv 1 puff kl once daily [Active]; glimepiride 4 mg Oral tab 2 tab once daily [Active]; Levemir subcutaneous [Active]; Tradjenta 5 mg Oral tab 1 tab once daily [Active]; spironolactone 25 mg Oral tab 1 tab once daily [Active]; - PMHx: 16:06 Asthma; cardiac stent x2; Diabetes - IDDM; Hyperlipidemia; Hypertension; Myocardial kc6 infarction; - Immunization history:: Client reports receiving the 2nd dose of the Covid vaccine, Flu vaccine is up to date. - Social history:: Smoking status: Patient denies any tobacco usage or history of. ROS: 16:12 Constitutional: Negative for fever, chills, and weight loss, Cardiovascular: Negative [facility] for chest pain, palpitations, and edema, Respiratory: Negative for shortness of breath, cough, wheezing, and pleuritic chest pain. 16:12 MS/extremity: Positive for injury or acute deformity, pain. 16:12 All other systems are negative. Exam: 16:12 Constitutional: This is a well developed, well nourished patient who is awake, alert, jmm and in no acute distress. Head/Face: atraumatic. Eyes: EOMI, no conjunctival erythema appreciated ENT: Moist Mucus Membranes Neck: Trachea midline, Supple Chest/axilla: Normal chest wall appearance and motion. Cardiovascular: Regular rate and rhythm. No edema appreciated Respiratory: Normal respirations, no respiratory distress appreciated Abdomen/GI: Non distended Back: Normal ROM Skin: General appearance color normal 16:12 Musculoskeletal/extremity: Painful range of motion noted to both knees, compartments are soft, full dorsalis pedis pulse bilaterally, neurovascular intact. 16:12 Skin: Appearance: Color: normal in color. 16:12 Neuro: Motor: is normal. 16:12 Psych: Behavior/mood is pleasant, cooperative. Vital Signs: 16:05 BP 190 / 55; Pulse 53; Resp 15 S; Temp 97.4(O); Pulse Ox 96% on R/A; Weight 92.08 kg kc6 (R); Height 5 ft. 4 in. (162.56 cm) (R); Pain 8/10; 16:30 BP 183 / 70; Pulse 61; Resp 18 S; Pulse Ox 96% on R/A; kc6 17:30 BP 182 / 62; Pulse 61; Resp 15; Pulse Ox 96% on R/A; kc6 19:28 BP 158 / 54; Pulse 55; Resp 18; Pulse Ox 96% on R/A; kl 16:05 Body Mass Index 34.84 (92.08 kg, 162.56 cm) kc6 MDM: 16:12 Patient medically screened. [facility] 18:36 Data reviewed: vital signs, nurses notes. Consideration of Admission/Observation [facility] Patient was admitted/placed on observation. Management of patient was discussed with the following: Nursing Education Specialist: Dr. Velasquez. Dr. Paz. I considered the following discharge prescriptions or medication management in the emergency department Medications were administered in the Emergency Department. See MAR. Independent interpretation of the following test(s) in the Emergency Department X-Ray: My interpretation is Proximal fibular fracture of the right knee. Historians other than the Patient: . ED course: Due to concerns for ability to ambulate at home and perform ADLs. I discussed the patient Dr. Paz whom accepted the patient for admission for rehabilitation. I did just discussed the patient with Dr. Velasquez whom recommended medial immobilizer when asked consult on the patient for admission.. 07/13 18:39 Order name: SARS RAPID [facility] 07/13 18:44 Order name: Basic Metabolic Panel [facility] 07/13 16:14 Order name: Pelvis XRAY; Complete Time: 18:07 [facility] 07/13 18:44 Order name: Basic Metabolic Panel [facility] 07/13 18:44 Order name: CBC with Automated Diff [facility] 07/13 18:44 Order name: CBC with Automated Diff [facility] 07/13 16:14 Order name: Lumbar Spine (3 Views) XRAY; Complete Time: 17:52 [facility] 07/13 16:14 Order name: Knee Right 3 View XRAY; Complete Time: 17:54 [facility] 07/13 16:14 Order name: Knee Left 3 View XRAY; Complete Time: 17:54 [facility] 07/13 18:44 Order name: Regular EDMS Administered Medications: 17:03 Drug: [place] (HYDROcodone-acetaminophen) 5 mg-325 mg 1 tabs Route: PO; kc6 Disposition Summary: 07/13/22 18:38 Hospitalization Ordered Hospitalization Status: Inpatient Admission [facility] Provider: Wm Paz Location: Telemetry/MedSur (Inpatient) [facility] Condition: Stable [facility] Problem: new [facility] Symptoms: are unchanged [facility] Bed/Room Type: Standard [facility] Room Assignment: 218(07/13/22 20:15) Diagnosis - Right proximal fibular fracture [facility] Forms: - Medication Reconciliation Form [facility] - SBAR form [facility] Addendum: 07/21/2022 19:03 I reviewed the patient's care provided by the Advanced Practice Provider and agree with j r11 the diagnosis and treatment plan. Signatures: Dispatcher [employer] Susanna Membreno RN RN kl Mickail, Joel, PA PA jmm Garcia, Cindy, RN RN cg Rosillo, Jose, MD MD [id number] Darlin Van RN RN kc6 Corrections: (The following items were deleted from the chart) 07/13 20:15 18:38 walter multani
--- NOTE | 2022-07-13 18:39 | ER ---
Nurse's Notes [facility] Name: Ktae Love Age: 81 yrs Sex: Female : 1940 Arrival Date: 07/13/2022 Time: 16:04 Bed 6 Private MD: Diagnosis: Right proximal fibular fracture Presentation: 07/13 16:05 Chief complaint: EMS states: client lost her balance and fell while entering her home. kc6 client denies LOC. currently takes aspirin daily. Coronavirus screen: Vaccine status: Patient reports receiving the 2nd dose of the covid vaccine. At this time, the client does not indicate any symptoms associated with coronavirus-19. Ebola Screen: No symptoms or risks identified at this time. Initial Sepsis Screen: Does the patient meet any 2 criteria? No. Patient's initial sepsis screen is negative. Does the patient have a suspected source of infection? No. Patient's initial sepsis screen is negative. Risk Assessment: Do you want to hurt yourself or someone else? Patient reports no desire to harm self or others. Onset of symptoms was July 13, 2022. 16:05 Method Of Arrival: EMS: [facility] kc6 16:05 Acuity: AURELIA 3 kc6 Triage Assessment: 16:06 General: Appears in no apparent distress. comfortable, Behavior is calm, cooperative, kc6 appropriate for age. Pain: Complains of pain in right and left knee Pain does not radiate. Pain currently is 8 out of 10 on a pain scale. Quality of pain is described as aching, dull, Pain began suddenly, Is continuous, Alleviated by rest, Aggravated by increased activity, repositioning, weight bearing, Noted to be resistant to movement, Also complains of no other associated symptoms. EENT: No signs and/or symptoms were reported regarding the EENT system. Neuro: Horowitz Agitation-Sedation Scale (RASS): 0 - Alert and Calm Level of Consciousness is awake, alert, obeys commands, Oriented to person, place, time, situation, Appropriate for age. Cardiovascular: Capillary refill < 3 seconds. Respiratory: Airway is patent Trachea midline Respiratory effort is even, unlabored, Respiratory pattern is regular, symmetrical. GI: No signs and/or symptoms were reported involving the gastrointestinal system. : No signs and/or symptoms were reported regarding the genitourinary system. Derm: No signs and/or symptoms reported regarding the dermatologic system. Skin is intact, Skin is pink, warm \T\ dry. Musculoskeletal: No signs and/or symptoms reported regarding the musculoskeletal system. Circulation, motion, and sensation intact. Capillary refill < 3 seconds, Range of motion: intact in all extremities. Historical: - Allergies: 16:06 No Known Allergies; kc6 - Home Meds: 17:09 carvedilol 12.5 mg Oral tab 2 times per day [Active]; clonidine HCl 0.1 mg Oral Tb12 as kc6 needed for Hypertension [Active]; aspirin 81 mg Oral TbEC 1 tab once daily [Active]; furosemide 20 mg Oral tab 1 tab once daily [Active]; Vitamin D Oral 1,000 unit WEEKLY [Active]; Soliqua 54 unit before breakfast [Active]; irbesartan 300 mg Oral tab 1 tab once daily [Active]; hydralazine 25 mg oral tab 1 tab [Active]; ezetimibe 10 mg oral tab 1 tab [Active]; 20:42 amlodipine 5 mg oral tab [Active]; Breo Ellipta 100-25 mcg/dose inhalation dsdv 1 puff kl once daily [Active]; glimepiride 4 mg Oral tab 2 tab once daily [Active]; Levemir subcutaneous [Active]; Tradjenta 5 mg Oral tab 1 tab once daily [Active]; spironolactone 25 mg Oral tab 1 tab once daily [Active]; - PMHx: 16:06 Asthma; cardiac stent x2; Diabetes - IDDM; Hyperlipidemia; Hypertension; Myocardial kc6 infarction; - Immunization history:: Client reports receiving the 2nd dose of the Covid vaccine, Flu vaccine is up to date. - Social history:: Smoking status: Patient denies any tobacco usage or history of. Screenin:[address] [facility] ED Fall Risk Assessment (Adult) History of falling in the last 3 months, kc6 including since admission Yes- single mechanical fall (1 pt) Confusion or Disorientation No (0 pts) Intoxicated or Sedated No (0 pts) Impaired Gait No (0 pts) Mobility Assist Device Used No (0 pt) Altered Elimination No (0 pt) Score/Fall Risk Level 0 - 2 = Low Risk Oriented to surroundings, Maintained a safe environment, Educated pt \T\ family on fall prevention, incl call for assistance when getting out of bed, Assessed \T\ reinforced patient's understanding of fall precautions, Hourly rounding (assess needs \T\ fall precautionary measures) done. Abuse screen: Denies threats or abuse. Denies injuries from another. Nutritional screening: No deficits noted. Tuberculosis screening: No symptoms or risk factors identified. Assessment: 16:08 Reassessment: please see triage assessment. 6 17:05 Reassessment: Patient appears in no apparent distress at this time. No changes from [facility] previously documented assessment. Patient and/or family updated on plan of care and expected duration. Pain level reassessed. Patient is alert, oriented x 3, equal unlabored respirations, skin warm/dry/pink. 18:05 Reassessment: Patient appears in no apparent distress at this time. No changes from [facility] previously documented assessment. Patient and/or family updated on plan of care and expected duration. Pain level reassessed. Patient is alert, oriented x 3, equal unlabored respirations, skin warm/dry/pink. Vital Signs: 16:05 BP 190 / 55; Pulse 53; Resp 15 S; Temp 97.4(O); Pulse Ox 96% on R/A; Weight 92.08 kg kc6 (R); Height 5 ft. 4 in. (162.56 cm) (R); Pain 8/10; 16:30 BP 183 / 70; Pulse 61; Resp 18 S; Pulse Ox 96% on R/A; kc6 17:30 BP 182 / 62; Pulse 61; Resp 15; Pulse Ox 96% on R/A; kc6 19:28 BP 158 / 54; Pulse 55; Resp 18; Pulse Ox 96% on R/A; kl 16:05 Body Mass Index 34.84 (92.08 kg, 162.56 cm) [facility] ED Course: 16:04 Patient arrived in ED. 6 16:04 Darlin Van RN is Primary Nurse. [facility] 16:06 Clyde Rand PA is PHCP. [facility] 16:06 Akira Morales MD is Attending Physician. [facility] 16:06 Triage completed. kc6 16:09 Arm band placed on. 6 16:09 Patient has correct armband on for positive identification. Placed in gown. Bed in low kc6 position. Call light in reach. Side rails up X2. 17:40 Pelvis XRAY In Process Unspecified. EDMS 17:40 Lumbar Spine (3 Views) XRAY In Process Unspecified. EDMS 17:41 Knee Right 3 View XRAY In Process Unspecified. EDMS 17:41 Knee Left 3 View XRAY In Process Unspecified. EDMS 18:38 Wm Paz MD is Hospitalizing Provider. [facility] 20:42 No provider procedures requiring assistance completed. Patient did not have IV access kl during this emergency room visit. Administered Medications: 17:03 Drug: Wana (HYDROcodone-acetaminophen) 5 mg-325 mg 1 tabs Route: PO; kc6 Medication: 20:42 VIS not applicable for this client. kl Outcome: 18:38 Decision to Hospitalize by Provider. [facility] 20:41 Admitted to Med/surg via stretcher, room 21, Report called to [facility] 20:41 Condition: stable 20:41 Discharge instructions given to patient, family, Instructed on the need for admit, Demonstrated understanding of instructions, follow-up care. 21:02 Patient left the ED. Signatures: Dispatcher [facility] Susanna Membreno, RN RN Clyde Garcia PA PA Darlin Garcia RN RN kc6
[2022-07-13] MEDS ORDERED: ONDANSETRON 4 MG/2 ML VIAL IV PRN (18:41)
[2022-07-13 19:13] LABS: SARS-CoV-2 Antigen Rapid Res Negative (Negative)
[2022-07-13] MEDS: HYDROCODONE/APAP 5/325 MG TAB PO PRN (20:21)
[2022-07-13 21:16] VITALS: BMI 34.1
[2022-07-13] MEDS ORDERED: GLUCAGON 1 MG/VIAL IM PRN (22:15)
[2022-07-13] MEDS ORDERED: D50W 25 GM/50 ML SYRINGE IV PRN (22:15)
[2022-07-13] MEDS ORDERED: D10W 125 ML IV PRN (22:26)
[2022-07-14] MEDS: HYDROCODONE/APAP 5/325 MG TAB PO PRN ×3 (00:10→09:05)
--- NOTE | 2022-07-14 04:10 | HP ---
Date of Admission: 07/13/2022 Chief Complaint: Fall and knee pain. History Of Present Illness: Ms. Love is a very pleasant 81-year-old female patient who was doing fine in her normal usual state of health until today when she had gone out of town for some shopping and after she came back, as she was walking in her driveway, she lost her balance and describes as if her leg gave out and she fell down on the ground. She was holding some things that she bought in her right hand, so she did not have her both hands free for adequate balance and she ended up falling down, was not able to get up and was brought into emergency room where she was complaining of bilateral knee pain and after she was evaluated, she was admitted to the hospital with fracture of right proximal fibula. When I saw her, she was in the emergency room. Allergies: NO KNOWN ALLERGIES. Review of Systems: Musculoskeletal: As mentioned above and also has chronic back pain. All other systems reviewed and negative. Medications: List reviewed. Past Medical History: Significant for type 2 diabetes mellitus; hyperparathyroidism; COVID-19 infection in 2019; hypertension; hyperlipidemia; coronary artery disease; STEMI on December 12, 2019; carotid artery stenosis; osteoarthritis at multiple sites; gastroesophageal reflux disease; diverticulosis; and vitamin D deficiency. Past Surgical History: Tonsillectomy; coronary artery stent placement for STEMI on December 14, 2019; bilateral knee surgery; knee replacement surgery; back surgery; cervical spine surgery; shoulder surgery. Family History: Father , had COPD. Mother , had diabetes and heart disease. Social History: Negative for smoking or alcohol use. Physical Examination: Vital Signs: 5 feet 5 inches, weight 205 pounds, temperature 97.4, pulse 53, respiratory rate 15, blood pressure 190/55, oxygen saturation 96%. General: Awake, alert, oriented, not in distress. HEENT: Head atraumatic, normocephalic. Conjunctivae nonerythematous. Sclerae white. Mouth, no thrush or edema noted. Ears/Nose, no mass, lesion, discharge noted. Neck: Supple. No JVD, lymph nodes, bruit, thyromegaly noted. Lungs: Bilateral good equal air entry. Clear to auscultation. No rhonchi. No rales. Heart: Normal heart sounds, no murmur or gallop. Abdomen: Soft, bowel sounds normal. No guarding, rigidity, tenderness, mass, hepatosplenomegaly, distention, or bruit noted. Extremities: Bilateral lower extremities have old surgical scar over anterior knees from prior knee replacement surgery and the patient does have tenderness over both knees in the lateral aspect of the lower knee region. No bruising. No open wound. Skin: No rash, ulcer, cellulitis. Lymphatics: No lymph node enlargement in neck, supraclavicular, infraclavicular region. Neuro: No focal neurological deficit. Chest: Unremarkable. External Genitalia: Deferred. Rectal: Deferred. Laboratory Data: Right knee x-ray shows mild displacement of fracture of fibula neck fracture. Left knee x-ray was negative for any acute fracture. Lumbar spine x-ray shows moderate spondylosis. Pelvis x-ray was negative for any acute changes. WBC 8.5, hemoglobin 11.1, platelets 201. Sodium 143, potassium 3.7, chloride 107, bicarb 28, glucose 162, BUN 33, and creatinine 1.07. Impression: 1. Fracture of right proximal fibula neck, with mild displacement. 2. Type 2 diabetes mellitus. 3. Hypertension. 4. Hyperlipidemia. 5. Coronary artery disease. 6. Osteoarthritis, multiple sites. 7. Carotid artery stenosis. 8. Vitamin D deficiency. 9. Hyperparathyroidism. Plan: Admit the patient to hospital for further evaluation and management of this problem. The patient is appropriate for inpatient and is expected to spend 2 midnights in hospital. We will consult orthopedic surgeon, Dr. Velasquez who is oral and maxillofacial surgeon for further evaluation and management of this fracture of the right fibula. Meanwhile, we will go ahead and give her pain medication per order. DVT prophylaxis will be given using Lovenox. For hypertension, we will continue her antihypertensive medication and monitor blood pressure and if necessary, make adjustment on blood pressure medication. For hyperlipidemia, we will continue her statin therapy. For coronary artery disease, we will go ahead and continue her home medications per order and no need for any further intervention at this time. For diabetes, we will continue insulin therapy per order. Monitor fingerstick blood sugar readings closely. We will see her tomorrow morning for followup. Details and plan of treatment discussed with her and her , who was at bedside. MORIAH/MODL Voice ID: [id number] MTDNick
[2022-07-14 06:24] LABS: Absolute Lymphocytes (CBC) 1.1 K/uL (0.7-4.9); Hematocrit 33.9 % (36.0-45.0); Lymphocytes % 13.1 % (15.3-44.8); MCV 91.1 fL (80-100); MPV 9.6 fL (7.6-11.3); RBC Red Blood Cell Count 3.72 M/uL (3.86-4.86)
[2022-07-14 06:29] LABS: Potassium 3.7 mmol/L (3.5-5.1)
[2022-07-14] MEDS: INSULIN -REGULAR HUMAN 50 UNIT/0.5 ML ML SQ SCH ×4 (07:30→21:00)
[2022-07-14] MEDS: ASPIRIN EC 81 MG TAB PO SCH (08:56)
[2022-07-14] MEDS: carvediloL 12.5 MG TAB PO SCH ×2 (08:57→21:02)
[2022-07-14] MEDS: cloNIDine HCL 0.1 MG TAB PO SCH ×3 (08:57→21:03)
[2022-07-14] MEDS: NIFEDIPINE XL 30 MG TABLET PO SCH (08:58)
[2022-07-14] MEDS: GABAPENTIN 300 MG CAP PO SCH ×3 (08:58→21:03)
[2022-07-14] MEDS: ENOXAPARIN 40 MG/0.4 ML SQ SCH (08:58)
--- NOTE | 2022-07-14 12:32 | PN ---
Date of Progress Note: 07/14/2022 Subjective: The patient was seen this morning for followup. No new complaints or problems reported. She continues to have bilateral knee pain after the fall. Objective: Vital Signs: Reviewed. HEENT: Unremarkable. Lungs: Clear to auscultation. Heart: Sounds normal. Abdomen: Soft. Bowel sounds normal. No guarding, rigidity, tenderness, distention. Extremities: No leg edema. The patient does have tenderness over both medial knees. There is no br uising. Her movement of left lower extremity is extremely limited because of pain and she is unable to elevate her left lower leg against gravity. Laboratory Data: White count this morning 8.5, hemoglobin 11.1, platelets 201. Sodium 143, potassiu m 3.7, chloride 107, bicarb 28, BUN 33, creatinine 1.07, glucose 162. Impression: 1.Fracture of right proximal fibula, mildly displaced. 2.Type 2 diabetes mellitus. 3.Coronary artery disease. 4.Hypertension. 5.Hyperlipidemia. 6.Osteoarthritis, multiple sites. Plan: We will go ahead and give Lovenox for DVT prophylaxis per order. Her hydrocodone 5 mg dose vargas s not controlled her pain as she reported this morning, so we will change hydrocodone to 7.5 mg and w e will give 1 tablet every 6 hours on a scheduled basis and I have ordered morphine 2 mg every 4 hour s as needed for pain control. We will use Zofran as needed for nausea, vomiting. At home, she takes some MiraLAX for her chronic constipation problem and I will go ahead and start her on Senokot-S 2 t ablets 2 times a day and use MiraLAX as needed. We will consult Physical Therapy and waiting on cons ultation from Dr. Velasquez. We will also apply lidocaine patch to both knees. Consult inpatient dolly ab as I did discuss with the patient regarding rehab options and she would prefer to go to inpatient rehab at our hospital if she gets accepted. MORIAH/MODL Voice ID: [id number] Report ID: [id number]
[2022-07-14] MEDS: HYDROCODONE/APAP 7.5/325 MG TAB PO SCH ×4 (13:38→23:00)
[2022-07-14] MEDS: LIDOCAINE 4% PATCH TOP SCH (15:53)
[2022-07-14] MEDS: POLYETHYL GLY 3350 17 GM/DOSE PO PRN (15:54)
[2022-07-14] MEDS: DOCUSATE NA/SENNA CONC 1 TAB PO SCH (15:54)
[2022-07-14] MEDS ORDERED: LORAZEPAM 1 MG TABLET PO ONE (16:40)
--- NOTE | 2022-07-14 18:32 | RAD REPORT ---
EXAM DESCRIPTION: MRI - Lumbar Spine Wo Con - 07/14/2022 6:16 pm CLINICAL HISTORY: Evaluate for lumbar stenosis, COMPARISON: MRI 11/22/2021. TECHNIQUE: Sagittal T1-weighted, T2-weighted and T2-STIR weighted sequences were obtained. Axial T1 -weighted and heavily T2-weighted sequenceswere obtained through the lumbar disc levels. FINDINGS: No fractures identified. Small right renal cyst. Grade 1 anterolisthesis of L4 on L5. Conus is normal with no clumping or thickening of the cauda equina. T12-L1 level: No significant findings. L1-2 level: No significant findings. L2-3 level: Broad-based disc bulge with moderate disc height loss. Surgical changes from posterior de compression. Moderate left and moderate to severe right neural foraminal narrowing. No central spinal stenosis. L3-4 level: Broad-based disc bulge. Surgical changes from posterior decompression. Small bilateral sy novial cysts noted. Severe right greater than left neural foraminal narrowing is noted. No central sp inal stenosis. L4-5 level: Broad-based disc bulge with severe facet hypertrophy noted. Synovial cyst medially at the right L4-5 facet. . Changes posterior decompression. Severe bilateral neural foraminal narrowing. No central spinal stenosis . L5-S1 level: Severe disc height loss. Posterior decompression. No central spinal stenosis. Neural for aminal narrowing is moderate bilaterally. IMPRESSION: Status post L2 through S1 posterior laminectomy. No central spinal stenosis identified h owever there are varying degrees of neural foraminal narrowing as noted above. The findings are simil ar to 11/22/2021.
--- NOTE | 2022-07-14 19:05 | CON ---
Reason For Consultation: Bilateral knee pain. History Of Present Illness: Ms. Love is an 81-year-old woman who has had bilateral knee replacements done at an outside facility. She has been having progressive difficulty with neuropathy and back pa in. She has been under the care of Pain Management for epidural steroid injections. She has had pro gressive weakness in her legs. She sustained a low velocity low energy fall in her home with her leg s folded up underneath her. She sustained a right nondisplaced fibula fracture. She is unable to be ar weight and ambulate. The patient was admitted and we are asked to evaluate the fibula fracture. The fibula fracture is of no consequence. There is some minimal displacement. This would be amenabl e to a knee immobilizer and in itself would not warrant admission. Physical Examination: Extremities: On examination, she is tender over her quadriceps tendons bilaterally, the right greate r than the left. She has severe neuropathic changes in bilateral lower extremities. She has recentl y had an MRI scan in November of 2021. Neurologic: She is weak in her L3 through L4 musculature. The right side is particularly painful on attempt to motion. The patient is now unable to ambulate. Assessment And Plan: To evaluate this, we will need to get ultrasounds of her quadriceps and patella r tendons on both sides and evaluate the integrity of the tendons. We will repeat a lumbar spine MRI to make sure that there are no compressive neuropathy changes. It appears that this is a progressio n of her neuropathy, spinal stenosis, and may be a secondary injury of her prosthetic knees. We will await the results of her findings. We will place knee immobilizer bilaterally. CM/MODL Voice ID: [id number] Report ID: [id number]
[2022-07-14] MEDS: ALPRAZOLAM 0.25 MG TABLET PO SCH (21:03)
[2022-07-15] MEDS: HYDROCODONE/APAP 7.5/325 MG TAB PO SCH ×4 (05:00→23:32)
[2022-07-15] MEDS: INSULIN -REGULAR HUMAN 50 UNIT/0.5 ML ML SQ SCH ×4 (07:30→21:37)
[2022-07-15] MEDS: HOME MED 1 EA UNK (Insulin Glargine/Lixisenatide [Soliqua 100 Unit-33 Mcg/Ml Pen] 3 ML Ins SQ SCH (09:00)
--- NOTE | 2022-07-15 10:32 | PN ---
Date of Progress Note: 07/15/2022 Subjective: The patient was seen this morning for followup. She was lying in bed, not in any distre ss. Her was with her at bedside. No new complaints or problems reported. Yesterday, she wa s evaluated by orthopedic surgeon, Dr. Velasquez, and she wanted to do ultrasound of her knee and vince aburto and radiologist called Dr. Garibay and informed me that he talked to Dr. Velasquez and informed him that we do not have any means of doing ultrasound of the muscles as Dr. Velasquez had requested, so the ne xt best possible tests we can do is MRI of the knee and this was ordered for bilateral knee MRI and a fter her lumbar spine MRI was done yesterday, the patient informed the body art technician that she will not b e able to undergo any further MRI because she was not comfortable at all and she was having claustrop hobia. Even after nurse tried to talk to her, she refused to stay in Radiology Department for MRI of the knee. So, we will have to do this MRI on Sunday as our hospital does not have any MRI testing a vailable over the weekend. She has her knee immobilizer in place. She is not able to stand or ambul ate because of her pain in her legs. Vital signs reviewed. Oxygen saturation this morning is 90% du ring nighttime. I saw her oxygen saturation had dropped down to 85% on room air. When I saw her thi s morning, she denied any shortness of breath complaints. No cough or congestion. She has not had a bowel movement yet. Objective: Vital Signs: Reviewed. HEENT: Unremarkable. Lungs: Clear to auscultation. Heart: Sounds normal. Abdomen: Soft. Bowel sounds normal. No guarding, rigidity, tenderness, distention. Extremities: No leg edema. Bilateral knee immobilizer is in place. Impression: 1.Hypoxia. 2.Hypertension. 3.Diabetes mellitus. 4.Coronary artery disease. 5.Bilateral knee pain. 6.Fracture, right proximal fibula with mild displacement. Plan: The patient's MRI of the lumbar spine results reviewed with her that does not show any acute c hanges and it is unchanged from November 2021 MRI. She is requesting to see if we can take her knee immo bilizer off and keep it off for some period of time while she is lying in the bed and I have informed her that she should be able to do so on an as-needed basis anywhere from hour to 3 hours, she can ke ep it off. Her pain in her both knees is well controlled with current pain medication that is ordere d for her and lidocaine patch. We will continue current stool softener and laxative per order. Cont inue current antihypertensive medication and diabetes management. Incentive spirometry was ordered. Continue Lovenox for DVT prophylaxis and I will see her tomorrow for followup. MORIAH/MODL Voice ID: [id number] Report ID: [id number]
[2022-07-15] MEDS: ENOXAPARIN 40 MG/0.4 ML SQ SCH (11:23)
[2022-07-15] MEDS: NIFEDIPINE XL 30 MG TABLET PO SCH (11:23)
[2022-07-15] MEDS: carvediloL 12.5 MG TAB PO SCH ×2 (11:24→21:36)
[2022-07-15] MEDS: cloNIDine HCL 0.1 MG TAB PO SCH ×3 (11:24→21:36)
[2022-07-15] MEDS: GABAPENTIN 300 MG CAP PO SCH ×3 (11:24→21:36)
[2022-07-15] MEDS: DOCUSATE NA/SENNA CONC 1 TAB PO SCH ×2 (11:24→21:36)
[2022-07-15] MEDS: ASPIRIN EC 81 MG TAB PO SCH (11:25)
[2022-07-15] MEDS: LIDOCAINE 4% PATCH TOP SCH (12:17)
[2022-07-15] MEDS: MORPHINE 2 MG/ML SYR IV PRN (14:21)
[2022-07-15] MEDS: ALPRAZOLAM 0.25 MG TABLET PO SCH (21:36)
[2022-07-16] MEDS: HYDROCODONE/APAP 7.5/325 MG TAB PO SCH ×4 (04:47→23:00)
--- NOTE | 2022-07-16 07:56 | PN ---
Date of Progress Note: 07/16/2022 Subjective: The patient was seen this morning for followup. No new complaints or problems reported by the patient. She was sleeping, arousable, not in distress. Reports that her pain from her knees is better today compared to yesterday. The patient also reports having small bowel movement yesterda y. Objective: Vital Signs: Reviewed. HEENT: Unremarkable. Lungs: Clear to auscultation. No wheezing. No rales. Not in any respiratory distress. Heart: Sounds normal. Abdomen: Soft. Bowel sounds normal. No guarding, rigidity, tenderness, distention. Extremities: No leg edema. Impression: 1.Right fibula fracture with mild displacement. 2.Coronary artery disease. 3.Hypertension. 4.Diabetes mellitus. 5.Hyperlipidemia. Plan: We will go ahead and continue current pain medication which seems to be controlling her pain v anisa well. We will continue lidocaine patch and immobilizer to both knees. Physical Therapy to soto [place] to work with the patient and tomorrow we will be getting MRI on her knee for further evaluation. We will continue to follow with radiosonde specialist. The patient was encouraged to use incentive spirometer every hour as per order. She was noted to have some drop in her oxygen saturation at nigh ttime with 90% room air oxygen saturation and there is no need for any oxygen replacement therapy, but I suspect that this is due to shallow breathing and she needs to try to do some breathing exercis e to assist with that. MORIAH/MODL Voice ID: [id number] Report ID: [id number]
[2022-07-16] MEDS: ENOXAPARIN 40 MG/0.4 ML SQ SCH (08:41)
[2022-07-16] MEDS: GABAPENTIN 300 MG CAP PO SCH ×3 (08:41→21:37)
[2022-07-16] MEDS: DOCUSATE NA/SENNA CONC 1 TAB PO SCH ×2 (08:42→21:35)
[2022-07-16] MEDS: ASPIRIN EC 81 MG TAB PO SCH (08:42)
[2022-07-16] MEDS: LIDOCAINE 4% PATCH TOP SCH (08:43)
[2022-07-16] MEDS: INSULIN -REGULAR HUMAN 50 UNIT/0.5 ML ML SQ SCH ×4 (08:45→21:00)
[2022-07-16] MEDS: HOME MED 1 EA UNK (Insulin Glargine/Lixisenatide [Soliqua 100 Unit-33 Mcg/Ml Pen] 3 ML Ins SQ SCH (08:48)
[2022-07-16] MEDS: cloNIDine HCL 0.1 MG TAB PO SCH ×3 (09:54→21:37)
[2022-07-16] MEDS: NIFEDIPINE XL 30 MG TABLET PO SCH (09:54)
[2022-07-16] MEDS: carvediloL 12.5 MG TAB PO SCH ×2 (09:55→21:35)
[2022-07-16] MEDS: ALPRAZOLAM 0.25 MG TABLET PO SCH (21:00)
[2022-07-17] MEDS ORDERED: LORAZEPAM 0.5 MG TABLET PO PRN (01:47)
[2022-07-17 04:39] LABS: Absolute Lymphocytes (CBC) 1.3 K/uL (0.7-4.9); Hematocrit 33.6 % (36.0-45.0); Lymphocytes % 15.5 % (15.3-44.8); MCV 91.6 fL (80-100); MPV 9.8 fL (7.6-11.3); RBC Red Blood Cell Count 3.67 M/uL (3.86-4.86)
[2022-07-17] MEDS: HYDROCODONE/APAP 7.5/325 MG TAB PO SCH ×4 (04:44→21:07)
[2022-07-17 05:15] LABS: Albumin 2.2 g/dL (3.4-5.0); Bilirubin Total 0.4 mg/dL (0.2-1.0); Magnesium 2.1 mg/dL (1.6-2.4); Potassium 4.5 mmol/L (3.5-5.1); Protein, Total 5.6 g/dL (6.4-8.2)
[2022-07-17] MEDS ORDERED: BISACODYL 10 MG RECTAL SUPP PR ONE (06:56)
[2022-07-17] MEDS ORDERED: ALPRAZOLAM 0.25 MG TABLET PO PRN (06:57)
[2022-07-17] MEDS: ASPIRIN EC 81 MG TAB PO SCH (09:00)
[2022-07-17] MEDS: INSULIN -REGULAR HUMAN 50 UNIT/0.5 ML ML SQ SCH ×4 (09:19→21:09)
[2022-07-17] MEDS: carvediloL 12.5 MG TAB PO SCH ×2 (10:28→21:09)
[2022-07-17] MEDS: DOCUSATE NA/SENNA CONC 1 TAB PO SCH ×2 (10:28→21:08)
[2022-07-17] MEDS: GABAPENTIN 300 MG CAP PO SCH ×3 (10:28→21:07)
[2022-07-17] MEDS: ENOXAPARIN 40 MG/0.4 ML SQ SCH (10:29)
[2022-07-17] MEDS: cloNIDine HCL 0.1 MG TAB PO SCH ×3 (10:29→21:08)
[2022-07-17] MEDS: NIFEDIPINE XL 30 MG TABLET PO SCH (10:31)
--- NOTE | 2022-07-17 10:47 | RAD REPORT ---
EXAM DESCRIPTION: RAD - Chest Single View - 07/17/2022 10:35 am CLINICAL HISTORY: hypoxia Chest pain. COMPARISON: Chest Single View dated 05/17/2020; Chest Single View dated 12/13/2019; Chest Pa And Lat (2 Views) dated 03/11/2019; Chest Single View dated 06/08/2017 FINDINGS: Portable technique limits examination quality. The lungs are grossly clear. The heart is normal in size. Bilateral shoulder hardware and cervical sp ine hardware. IMPRESSION: No acute intrathoracic process suspected.
[2022-07-17] MEDS: HOME MED 1 EA UNK (Insulin Glargine/Lixisenatide [Soliqua 100 Unit-33 Mcg/Ml Pen] 3 ML Ins SQ SCH (11:49)
[2022-07-17] MEDS: LIDOCAINE 4% PATCH TOP SCH (11:49)
--- NOTE | 2022-07-17 12:39 | RAD REPORT ---
EXAM DESCRIPTION: MRI - Knee Right Wo Cont - 07/17/2022 12:03 pm CLINICAL HISTORY: fall, fibula fracture Pain and swelling COMPARISON: No comparisons FINDINGS: Total knee arthroplasty is present which results in significant blooming artifact. There is an oblique fracture of the fibular neck seen. The quadriceps and patellar tendons appear intact. No soft tissue mass or hematoma seen. Mild muscle atrophy is present. IMPRESSION: Limited study demonstrates oblique nondisplaced fracture of the fibular neck. The quadriceps, patellar tendons are intact. Significant blooming artifact is present from knee arthroplasty.
--- NOTE | 2022-07-17 12:43 | RAD REPORT ---
EXAM DESCRIPTION: MRI - Knee Left Wo Cont - 07/17/2022 11:56 am CLINICAL HISTORY: fall, fibula fracture Pain and swelling COMPARISON: No comparisons FINDINGS: There is significant blooming artifact present from total knee arthroplasty. This limits t he quality of the study. . No acute fractures seen. Quadriceps and patellar tendon are intact. Mild muscle atrophy noted. There is no soft tissue mass or hematoma. IMPRESSION: Limited study due to arthroplasty procedure. No fracture or bone bruising seen. Quadriceps and patellar tendons appear intact.
[2022-07-17] MEDS: POLYETHYL GLY 3350 17 GM/DOSE PO PRN (17:51)
[2022-07-18] MEDS: INSULIN -REGULAR HUMAN 50 UNIT/0.5 ML ML SQ SCH ×4 (07:30→21:10)
[2022-07-18 07:46] LABS: Magnesium 2.3 mg/dL (1.6-2.4); Potassium 4.6 mmol/L (3.5-5.1)
--- NOTE | 2022-07-18 08:29 | PN ---
Date of Progress Note: 07/17/2022 Subjective: The patient was seen this morning for followup. She was sleeping, easily arousable, not in any distress. She did not get her alprazolam or hydrocodone last night because she was already s leepy as per my discussion with the nursing staff, but she did get her hydrocodone around 5 o'clock t his morning. Overall, no new complaints or problems reported. The patient still has not had a bowel movement so far. Objective: Vital Signs: Reviewed. HEENT: Unremarkable. Lungs: Clear to auscultation. Heart: Sounds normal. Abdomen: Soft. Bowel sounds normal. Extremities: No leg edema. Laboratory Data: White count 8.6, hemoglobin 11.1, platelets 192. Sodium 139, potassium 4.5, chlori de 107, bicarb 29, BUN 48, creatinine 1.33, glucose 197. Impression: 1.Right fibula fracture. 2.Volume depletion. 3.Hypertension. 4.Coronary artery disease. 5.Hyperlipidemia. 6.Diabetes mellitus. 7.Acute respiratory failure with hypoxia. Plan: The patient's oxygen saturation had dropped down to 85% during nighttime and she was started o n oxygen 2 L/minute per nasal cannula, which is maintaining adequate oxygenation. We will continue t hat. For her volume depletion, I have encouraged patient to drink about 50 ounces of water daily. I ncentive spirometer use was advised on hourly basis. MRI of the bilateral knee was done today and th at has not revealed any tendon or muscle tear. I have reduced her hydrocodone dose from every 6 hour s to 3 times a day and I have discontinued her alprazolam. I will see her tomorrow for followup. ysical Therapy to continue to work with her and we will give her 1 dose of Dulcolax rectal suppository. MORIAH/MODL Voice ID: [id number] Report ID: [id number]
[2022-07-18] MEDS: HOME MED 1 EA UNK (Insulin Glargine/Lixisenatide [Soliqua 100 Unit-33 Mcg/Ml Pen] 3 ML Ins SQ SCH (09:00)
[2022-07-18] MEDS: HYDROCODONE/APAP 7.5/325 MG TAB PO SCH ×2 (09:00)
[2022-07-18] MEDS: LIDOCAINE 4% PATCH TOP SCH (09:12)
[2022-07-18] MEDS: DOCUSATE NA/SENNA CONC 1 TAB PO SCH ×2 (09:14→21:07)
[2022-07-18] MEDS: GABAPENTIN 300 MG CAP PO SCH ×3 (09:14→21:08)
[2022-07-18] MEDS: cloNIDine HCL 0.1 MG TAB PO SCH ×3 (09:14→21:08)
[2022-07-18] MEDS: NIFEDIPINE XL 30 MG TABLET PO SCH (09:14)
[2022-07-18] MEDS: ENOXAPARIN 40 MG/0.4 ML SQ SCH (09:14)
[2022-07-18] MEDS: ASPIRIN EC 81 MG TAB PO SCH (09:15)
[2022-07-18] MEDS: carvediloL 12.5 MG TAB PO SCH ×2 (09:15→21:08)
[2022-07-18] MEDS: ACETAMINOPHEN 500 MG TAB PO PRN (21:40)
[2022-07-19] MEDS: NA CHLORIDE 0.9% 1,000 ML IV SCH ×2 (08:00→20:54)
[2022-07-19] MEDS ORDERED: LIXISENATIDE SQ SCH (09:00)
[2022-07-19] MEDS ORDERED: [UNRECOGNIZED DRUG - OTHER] SQ SCH (09:00)
[2022-07-19] MEDS ORDERED: INSULIN GLARGINE SQ SCH (09:00)
[2022-07-19] MEDS: NIFEDIPINE XL 30 MG TABLET PO SCH (09:30)
[2022-07-19] MEDS: ENOXAPARIN 40 MG/0.4 ML SQ SCH (09:30)
[2022-07-19] MEDS: POLYETHYL GLY 3350 17 GM/DOSE PO PRN (09:30)
[2022-07-19] MEDS: ASPIRIN EC 81 MG TAB PO SCH (09:34)
[2022-07-19] MEDS: cloNIDine HCL 0.1 MG TAB PO SCH ×3 (09:34→20:53)
[2022-07-19] MEDS: DOCUSATE NA/SENNA CONC 1 TAB PO SCH ×2 (09:34→20:53)
[2022-07-19] MEDS: GABAPENTIN 300 MG CAP PO SCH ×3 (09:35→20:53)
[2022-07-19] MEDS: LIDOCAINE 4% PATCH TOP SCH (09:35)
[2022-07-19] MEDS: carvediloL 12.5 MG TAB PO SCH ×2 (09:35→20:52)
[2022-07-19] MEDS: IBUPROFEN 600 MG TAB PO SCH ×2 (09:51→20:52)
[2022-07-19] MEDS: INSULIN -REGULAR HUMAN 50 UNIT/0.5 ML ML SQ SCH ×4 (09:52→20:51)
[2022-07-19] MEDS ORDERED: HYDROCORTISONE ACETATE 25MG SUPP PR PRN (10:30)
[2022-07-19] MEDS ORDERED: FLEET ENEMA ADULT PR ONE (10:30)
[2022-07-19] MEDS ORDERED: LIDOCAINE 4% PATCH TOP ONE (10:35)
--- NOTE | 2022-07-19 11:11 | PN ---
Date of Progress Note: 07/18/2022 Subjective: Patient was seen this morning for followup. She was sleeping, easily arousable, not in any distress. No new complaints or problems reported by her. Patient did answer questions, but she was going back to sleep soon as she was answering questions. She denies having any bowel movement. Denies any abdominal pain. Objective: Vital Signs: Reviewed. HEENT: Unremarkable. Lungs: Clear to auscultation. Heart: Sounds normal. Abdomen: Soft. Bowel sounds normal. No guarding, rigidity, tenderness, distention. Extremities: No leg edema. Impression: 1.Right proximal fibula fracture. 2.Coronary artery disease. 3.Hypertension. 4.Diabetes mellitus. 5.Osteoarthritis, multiple sites. Plan: Patient's MRI result was reviewed with her. Has not shown any muscle or tendon tear. She was informed that we need to continue her lidocaine patch, narcotic pain medication, and physical therap y and with time, her pain should improve. She was encouraged to do physical therapy. It appears dylan t she is having excessive amount of sleeping, so what we will do is, we will go ahead and now reduce her hydrocodone from 7.5 mg 3 times a day to 5 mg every 6 hours as needed and alprazolam is ordered a s needed at bedtime as well. I did communicate with the patient's and provided all the detai ls as well during the course of day today. Fingerstick blood sugar readings reviewed. We will continue current diabet es management. MORIAH/MODL Voice ID: [id number] Report ID: [id number]
[2022-07-19] MEDS: HYDROCORTISONE 2.5% RECT CR PR SCH ×2 (12:39→21:35)
--- NOTE | 2022-07-20 00:29 | PN ---
Date of Progress Note: 07/19/2022 Subjective: The patient was seen this morning for followup. She was lying in bed, not in any distre ss. Denies any complaints this morning except bilateral knee pain. The patient has not been able to ambulate or stand on her knees because of the pain. She still has not had a bowel movement since sh aditi has been in the hospital and Dulcolax rectal suppository has not helped her. Objective: Vital Signs: Reviewed. HEENT: Unremarkable. Lungs: Clear to auscultation. Heart: Sounds normal. Abdomen: Soft. Bowel sounds normal. No guarding, rigidity, tenderness, or distention. Extremities: No leg edema. Laboratory Data: Yesterday's blood work results reviewed. Fingerstick blood sugar readings reviewed . Impression: 1.Right proximal fibula fracture. 2.Constipation. 3.Hypertension. 4.Coronary artery disease. 5.Hyperlipidemia. 6.Osteoarthritis, multiple sites. 7.Diabetes mellitus. 8.Volume depletion. Plan: We will go ahead and give Fleet enema per order today. The patient is complaining of hemorrho idal pain and denies any bleeding and is requesting some medication so we will go ahead and order Pro ctofoam, if it is available in the hospital and Anusol rectal suppository per order. IV fluid will b e started. I will also start her on ibuprofen 600 mg 2 times a day to assist her with the pain. Lid ocaine patch was ordered 2 to 3 days ago, but I did not see that on her knees this morning and so I h sandhya reminded nursing staff to go ahead and make sure to apply lidocaine patch on a daily basis over b oth knees. We will continue current hydrocodone as needed for pain. Physical Therapy to continue to work with the patient. We will repeat blood work tomorrow morning. Increase dose of insulin from 1 0 units daily in the morning to 15 units daily. Details and plan of treatment discussed with the joseluis mackey and I will see her tomorrow for followup. MORIAH/MODL Voice ID: [id number] Report ID: [id number]
[2022-07-20 06:08] LABS: Absolute Lymphocytes (CBC) 1.4 K/uL (0.7-4.9); Hematocrit 36.5 % (36.0-45.0); Lymphocytes % 21.1 % (15.3-44.8); MCV 91.3 fL (80-100); MPV 8.6 fL (7.6-11.3)
[2022-07-20 06:51] LABS: Magnesium 1.7 mg/dL (1.6-2.4); Potassium 3.9 mmol/L (3.5-5.1)
[2022-07-20] MEDS: HYDROCODONE/APAP 5/325 MG TAB PO PRN ×2 (07:52→16:38)
[2022-07-20] MEDS: [UNRECOGNIZED DRUG - OTHER] SQ SCH (09:00)
[2022-07-20 09:10] VITALS: O2SAT 95
[2022-07-20] MEDS: LIDOCAINE 4% PATCH TOP SCH (10:11)
[2022-07-20] MEDS: DOCUSATE NA/SENNA CONC 1 TAB PO SCH ×2 (10:14→20:36)
[2022-07-20] MEDS: IBUPROFEN 600 MG TAB PO SCH ×2 (10:14→20:37)
[2022-07-20] MEDS: ASPIRIN EC 81 MG TAB PO SCH (10:15)
[2022-07-20] MEDS: cloNIDine HCL 0.1 MG TAB PO SCH ×3 (10:15→20:39)
[2022-07-20] MEDS: GABAPENTIN 300 MG CAP PO SCH ×3 (10:15→20:37)
[2022-07-20] MEDS: carvediloL 12.5 MG TAB PO SCH ×2 (10:15→20:39)
[2022-07-20] MEDS: NIFEDIPINE XL 60 MG TABLET PO SCH (10:15)
[2022-07-20] MEDS: ENOXAPARIN 40 MG/0.4 ML SQ SCH (10:16)
--- NOTE | 2022-07-20 10:21 | RAD REPORT ---
EXAM DESCRIPTION: RAD - Hip Bilateral With Pelvis - 07/20/2022 9:50 am CLINICAL HISTORY: Fall, pelvic and hip pain COMPARISON: Pelvis exam 07/13/2022 TECHNIQUE: AP view of the pelvis and hip joints was obtained with frogleg views of each hip joint. FINDINGS: Lower lumbar degenerative change present only partially imaged. SI joint degenerative fallon ges minimal. No acute sacral ala finding. Bowel content mostly obscures the ala. Bilateral hip joint degenerative change present relatively mild for age. Joint spaces are narrowed. A rterial tree calcifications overlying each femoral head. Femoral heads maintain smooth rounded contou r. No fracture of the pelvis or proximal femurs identified. No suspicious soft tissue finding. IMPRESSION: No fracture of the pelvis or hip joints identified. Degenerative changes involve the SI joints and bilateral hip joints.
--- NOTE | 2022-07-20 10:23 | RAD REPORT ---
EXAM DESCRIPTION: RAD - Femur Left - 07/20/2022 9:50 am CLINICAL HISTORY: fall, leg pain COMPARISON: None. FINDINGS: No fracture is identified. Hip joint degenerative changes are present, mild for age. There is no dislocation or periosteal reaction noted. No acute or suspicious bony finding. No evidence for loosening of the femoral component of the knee implant. No air or foreign body in the soft tissues. IMPRESSION: Negative left femur examination for fracture or acute finding.
--- NOTE | 2022-07-20 10:24 | RAD REPORT ---
EXAM DESCRIPTION: RAD - Tib Fib Left - 07/20/2022 9:51 am CLINICAL HISTORY: Fall, leg pain COMPARISON: None. FINDINGS: No fracture is identified. There is no dislocation or periosteal reaction noted. No eviden ce for loosening of the knee implant. Tibiotalar joint degenerative changes are present. Patient has a large plantar spur. No foreign body or other soft tissue abnormality. IMPRESSION: Negative left tibia & fibula examination for fracture or acute finding. Ankle joint degenerative change present along with a large plantar spur.
--- NOTE | 2022-07-20 10:27 | RAD REPORT ---
EXAM DESCRIPTION: RAD - Tib Fib Right - 07/20/2022 9:51 am CLINICAL HISTORY: fall, leg pain COMPARISON: Tib Fib Left dated 07/20/2022 FINDINGS: No fracture of the distal femur or proximal tibia identifiable. No evidence for loosening of the right knee implant. On the AP projection, nondisplaced fracture of the proximal fibula is note d. No displacement or angulation. There is no dislocation or periosteal reaction noted. Tibiotalar joint space narrowing and spurring seen. Moderately large plantar spur present. No foreign body or other soft tissue abnormality. IMPRESSION: Nondisplaced fracture of the proximal right fibula. No acute findings regarding the right knee implant or surrounding bony structures. Degenerative changes at the ankle including moderate-sized plantar spur.
--- NOTE | 2022-07-20 10:29 | RAD REPORT ---
EXAM DESCRIPTION: RAD - Knee Right 2 View - 07/20/2022 9:51 am CLINICAL HISTORY: fall, leg pain COMPARISON: <Comparisons>right knee 07/13/2022 FINDINGS: No fracture of the distal femur or proximal tibia. No suspicious findings regarding the kn ee implant.Nondisplaced, nonangulated fracture of the proximal fibula is noted and is similar to the prior examination. No measurable joint effusion seen. No foreign body or soft tissue abnormality. IMPRESSION: Proximal right fibula fracture without distraction or angulation. No change from prior i maging. No acute findings involving the implant or surrounding bony structures. No measurable joint effusion.
--- NOTE | 2022-07-20 10:30 | RAD REPORT ---
EXAM DESCRIPTION: RAD - Femur Right - 07/20/2022 9:50 am CLINICAL HISTORY: fall, leg pain COMPARISON: Knee Right 3 View dated 07/13/2022 FINDINGS: No fracture, dislocation or periosteal reaction noted. Hip joint degenerative changes are present relatively mild for age. AVN of the femoral head is not suspected. No acute findings of the l eft knee prosthesis or adjacent bony structures. No air or foreign body in the soft tissues. IMPRESSION: Negative right femur examination for acute finding.
--- NOTE | 2022-07-20 10:31 | RAD REPORT ---
EXAM DESCRIPTION: RAD - Knee Left 2 View - 07/20/2022 9:51 am CLINICAL HISTORY: fall, leg pain COMPARISON: Knee Left 3 View dated 07/13/2022; Knee Left 3 View dated 01/09/2016 FINDINGS: No fracture changes are identified. No evidence for loosening of the left knee prosthesis. No measurable joint effusion identified. No soft tissue abnormality. Arterial tree calcifications noted. IMPRESSION: Negative left knee examination for acute bone or implant finding. No measurable joint effusion.
[2022-07-20] MEDS: INSULIN -REGULAR HUMAN 50 UNIT/0.5 ML ML SQ SCH ×4 (10:32→20:39)
[2022-07-20] MEDS: HYDROCORTISONE 2.5% RECT CR PR SCH ×2 (10:33→20:41)
[2022-07-20] MEDS: NA CHLORIDE 0.9% 1,000 ML IV SCH (15:12)
[2022-07-20] MEDS: GLUCERNA SHAKE 237 ML CAN PO SCH (20:40)
[2022-07-21] MEDS: HYDROCODONE/APAP 5/325 MG TAB PO PRN (04:10)
[2022-07-21] MEDS: NA CHLORIDE 0.9% 1,000 ML IV SCH ×2 (04:11)
[2022-07-21] MEDS: ACETAMINOPHEN 500 MG TAB PO PRN (07:38)
[2022-07-21] MEDS: MORPHINE 2 MG/ML SYR IV PRN (08:01)
[2022-07-21] MEDS: [UNRECOGNIZED DRUG - OTHER] SQ SCH (09:00)
[2022-07-21] MEDS: carvediloL 12.5 MG TAB PO SCH (09:26)
[2022-07-21] MEDS: GABAPENTIN 300 MG CAP PO SCH ×2 (09:26→13:07)
[2022-07-21] MEDS: NIFEDIPINE XL 60 MG TABLET PO SCH (09:27)
[2022-07-21] MEDS: ASPIRIN EC 81 MG TAB PO SCH (09:27)
[2022-07-21] MEDS: cloNIDine HCL 0.1 MG TAB PO SCH ×2 (09:27→13:07)
[2022-07-21] MEDS: IBUPROFEN 600 MG TAB PO SCH (09:27)
[2022-07-21] MEDS: LIDOCAINE 4% PATCH TOP SCH (09:28)
[2022-07-21] MEDS: ENOXAPARIN 40 MG/0.4 ML SQ SCH (09:29)
[2022-07-21] MEDS: GLUCERNA SHAKE 237 ML CAN PO SCH (09:29)
[2022-07-21] MEDS: HYDROCORTISONE 2.5% RECT CR PR SCH (09:29)
[2022-07-21] MEDS: DOCUSATE NA/SENNA CONC 1 TAB PO SCH (09:30)
[2022-07-21] MEDS: INSULIN -REGULAR HUMAN 50 UNIT/0.5 ML ML SQ SCH ×2 (09:31→12:36)
[2022-07-21 12:46] VITALS: TEMP 97.8
[2022-07-21 13:08] VITALS: BP 150/67
--- NOTE | 2022-07-21 16:59 | PN ---
Date of Progress Note: 07/20/2022 Subjective: The patient was seen this morning for followup. No new complaints or problems reported by patient. She was lying in bed, not in distress. Vital signs reviewed. She denies any nausea, vo miting. Had a bowel movement yesterday and reports that she had few bowel movements after Fleet Enem a. She reports her pain in her both legs still significant, but better than before, but still having significant amount of pain. Objective: Vital Signs: Reviewed. HEENT: Unremarkable. Lungs: Clear to auscultation. Heart: Sounds normal. Abdomen: Soft. Bowel sounds normal. No guarding, rigidity, tenderness, distention. Extremities: No leg edema. No knee swelling. The patient has tenderness over both medial and later al aspect of the knees and anterior legs. Very minimal movement of both lower extremity was noted as she is having significant amount of pain, so she is not able to elevate her extremities against grav ity and very minimal flexion at both knees. Laboratory Data: White count 6.8, hemoglobin 11.8, platelets 273. Sodium 145, potassium 3.9, chlori de 112, bicarb 27, BUN 26, creatinine 0.70 glucose 170, calcium 11.3, magnesium 1.7. X-rays of both hip, pelvis, bilateral femur, knee, and bilateral tibia-fibula were done today and it does not show a ny new findings, no fracture anywhere except right proximal fibula fracture, which was already noted on the initial testing. Impression: 1.Fracture, right proximal fibula. 2.Osteoarthritis, multiple sites. 3.Hypertension. 4.Diabetes mellitus. 5.Coronary artery disease. 6.Hyperlipidemia. 7.Generalized weakness. 8.Debility. 9.Volume depletion. 10.Hyperparathyroidism. Plan: We will go ahead and continue current medications. Continue ibuprofen which was started to he lp with the pain and inflammation. We will continue her Lovenox for DVT prophylaxis. Continue curre nt antihypertensive medication and her insulin dose will be increased per order. Continue to monitor fingerstick blood sugar readings and Physical Therapy to continue to work with the patient. I did t alk to patient and discuss with her regarding denial that we obtained from her insurance for her to g o to rehab and I also explained to her that there is no point of appealing insurance decision because she is not able to do any therapy at all at this point because of her significant pain pending order for her to go to inpatient rehab. She will need to be able to do 3 hours of physical therapy and cu rrently she is not even able to stand up with assistance, so appeal process is not something that we will work with the insurance in this kind of situation, so I did explain it to her and she understand s and agrees with her recommendation to go to correction facility and Social Service is working on this. MORIAH/MODL Voice ID: [id number] Report ID: [id number]
--- NOTE | 2022-07-21 23:11 | DS ---
Date of Discharge: 07/21/2022 Disposition: Discharged to go to [facility]. Physical Examination: HEENT: Unremarkable. Lungs: Clear to auscultation. Heart: Sounds normal. Abdomen: Soft. Bowel sounds normal. No guarding, rigidity, tenderness, distention. Extremities: No leg edema. Laboratory Data: Upon admission, white count 8.5, hemoglobin 11.1, platelets 201. Yesterday, white count 6.8, hemoglobin 11.8, platelets 273. Chemistry from yesterday: Sodium 145, potassium 3.9, chl oride 112, bicarb 27, BUN 26, creatinine 0.70, glucose 170, calcium 11.3. Magnesium 1.7. Upon admis huan, sodium 143, potassium 3.7, chloride 107 bicarb 28, BUN 33, creatinine 1.07, glucose 162. Discharge Medication/instructions: 1.Continue all current medications. 2.See copy of discharge order for details. 3.Fall precautions. 4.Consult Physical Therapy and Occupational Therapy at skilled nursing. 5.Use knee immobilizer to both legs. 6.Weightbearing status as per Dr. Velasquez. 7.Follow up with Dr. Velasquez in 2 weeks. Hospital Course: This is an 81-year-old very pleasant female patient who fell down at home and was b rought into emergency room complaining of knee pain. Please see dictated H and P for more informatio n. After patient was evaluated in the emergency room, she was admitted to the hospital. Orthopedic consultation was obtained from Dr. Velasquez and he evaluated the patient. She wanted to do ultrasoun d of her thigh, which he talked to radiologist and radiologist informed him that we do not do this ki nd of ultrasound at our facility, so radiologist called and talked to me. After discussing with radi ologist, decision was made to do MRI of her both knees, which showed evidence of fracture of the righ t proximal fibula, which was noted on the initial x-ray when she came into the hospital, but no other acute abnormality noted on the MRI. MRI also did not show any evidence of any muscle or tendon tear as Dr. Sosa was worrying about. MRI of the lumbar spine shows evidence of postsurgical changes and arthritis and this MRI remains unchanged from previous MRI from November 2021. Physical Therapy was consulted and pain medication was started. Patient was having significant amount of pain and her mo bility is severely restricted. She is able to raise her lower extremity against gravity and not able to flex her knees either. Dr. Velasquez suggested use of knee immobilizer, which was placed. We sta rted her on lidocaine patch and initially we were giving her hydrocodone 7.5 mg every 6 hours on a sc heduled basis for pain control and we had p.r.n. morphine for pain control. This was helping to cont rol her pain, but then she has history of chronic constipation and we definitely had trouble with con stipation during this hospitalization and she was given Senokot S 2 times a day and MiraLAX that did not help and Dulcolax rectal suppository did not help and finally we had to give her Fleet Enema and that worked very well for her. She was also requiring some medication like alprazolam at bedtime to assist her with insomnia and she was noted to be sleepy, drowsy during booth usher hours and day ti me so we changed her alprazolam from scheduled basis to p.r.n. and reduced her hydrocodone from 7.5 m g every 6 hours to 3 times a day and subsequently we changed to dose 5 mg every 6 hours as needed and stop 7.5 mg dose. This current medication is assisting her with the pain control, but she is still having very severe limitation with the therapy. Inpatient Rehab consultation was requested, nacho pennington denied it and subsequently we requested Social Service to make arrangements for shelter fac ility placement of her choice and using facility of her choice today, she will be discharged from the hospital to go to such facility. I have advised her to come see me for followup once she is able to get discharge from the facility. Lovenox was started for DVT prophylaxis and we will continue that even after discharge. Final Diagnoses: 1.Fracture, right proximal fibula neck, with mild displacement. 2.Osteoarthritis, multiple sites. 3.Volume depletion. 4.Generalized weakness. 5.Debility. 6.Hypertension. 7.Type 2 diabetes mellitus. 8.Hyperlipidemia. 9.Coronary artery disease. 10.Osteoarthritis, multiple sites. 11.Carotid artery stenosis. 12.Vitamin D deficiency. 13.Hyperparathyroidism. MORIAH/MODL Voice ID: [id number] Report ID: [id number]
[2022-07-22] MEDS ORDERED: [UNRECOGNIZED DRUG - OTHER] SQ SCH (09:00)
[2022-07-22] MEDS ORDERED: ENOXAPARIN 40 MG/0.4 ML SQ SCH (09:00)
== END 2022-07-21 15:51 | DRG 562 ==
LOC: SUPCPDRO 16:03 → ER 16:03 → ERHOLD 18:40 → 2ND 20:42
PROVIDERS: ADMIT Internal Medicine; ATTEND Internal Medicine
DX: S82.491A Other fracture of shaft of right fibula, initial encounter for closed fracture (principal); J96.01 Acute respiratory failure with hypoxia; E78.5 Hyperlipidemia, unspecified; I10 Essential (primary) hypertension; G89.29 Other chronic pain; M54.9 Dorsalgia, unspecified; I25.2 Old myocardial infarction; I25.10 Atherosclerotic heart disease of native coronary artery without angina pectoris; Z95.5 Presence of coronary angioplasty implant and graft; Z79.82 Long term (current) use of aspirin; Z79.84 Long term (current) use of oral hypoglycemic drugs; Z79.899 Other long term (current) drug therapy; Z20.822 Contact with and (suspected) exposure to COVID-19; W18.30XA Fall on same level, unspecified, initial encounter; Y93.9 Activity, unspecified; Y92.093 Driveway of other non-institutional residence as the place of occurrence of the external cause; E03.9 Hypothyroidism, unspecified; Z86.16 Personal history of COVID-19; K21.9 Gastro-esophageal reflux disease without esophagitis; E55.9 Vitamin D deficiency, unspecified; E21.3 Hyperparathyroidism, unspecified; M19.09 Primary osteoarthritis, other specified site; Z96.653 Presence of artificial knee joint, bilateral; E11.40 Type 2 diabetes mellitus with diabetic neuropathy, unspecified; E86.9 Volume depletion, unspecified; K59.09 Other constipation; G47.00 Insomnia, unspecified
CPT/HCPCS: 36415; 71045; 72100; 72148; 72170; 73521; 80048; 80053; 82947; 83735; 85025; 87811; 94010; 97110; 97112; 97161; 97165; 97530; 99285; J1650; J1815; J2001; J2270; J7030; U0003

== ENCOUNTER 2022-12-28 13:15 | Emergency (ER) | payer OTHER ==
--- OUTSIDE RECORDS SUMMARY | 2022-12-28 13:41 | XMS REPORT | Continuity of Care Document ---
:1940 Author Organization [facility] t Address [address] [place] [address] [place] [id number] Care Team Providers Name Role Phone Sanket Pazshira Yousif Primary Care Physician MICHAEL ASHBY Attending Clinician Unavailable Alex Marie MD Attending Clinician Ej Attending Clinician Unavailable Provider , Not In System Attending Clinician Unavailable Rut Nicolas MA Attending Clinician Unavailable TYLER_Mely Attending Clinician Unavailable Doctor Unassigned, [place] Attending Clinician Unavailable Chucho Montenegro MD Attending Clinician CHUCHO MONTENEGRO Attending Clinician Unavailable Lora Quinones MD Attending Clinician Roger Holloway Attending Clinician [phone] Phillip Castaneda Attending Clinician Unavailable Joby Wheeler MD Attending Clinician Whitley Bryson RN Attending Clinician Unavailable MICHAEL ASHBY M.D. Attending Clinician Unavailable Riley Whyte Attending Clinician Jean Paul Angela Attending Clinician Ranjit Drew Attending Clinician Keron Thomas Attending Clinician Ej Admitting Clinician Unavailable TYLER_Mely Admitting Clinician Unavailable KNOW, DOES_NOT Admitting Clinician Unavailable Riley Whyte Admitting Clinician Jean Paul Angela Admitting Clinician Ranjit Drew Admitting Clinician Payers Payer Name Policy Type Policy Number Effective Date Expiration Date S inés [facility] MEDICARE [id number] 2021 ADVANTAGE 00:00:00 [facility] [id number] (MEDICARE 00:00:00 REPLACEMENT/ADVANTA GE - PPO) MEDICARE B-[place]: [id number] [employer] (MEDICARE [id number] REPLACEMENT/ADVANTA GE - PPO) Problems Condition Condition Condition Status Onset Resolution Last Treating Co mments Source Name Details Category Date Date Treatment Clinician Date Pain of Pain of Problem Active [place] bilateral Bilateral 11-24 Fami ly hands Hands 00:00: Practic 00 e Overweight Overweight Problem Active V illage 08-22 Family 00:00: Practic 00 e Fracture Fracture Problem Active [place] ge of fibula of Fibula 08-22 Fami ly 00:00: Practic 00 e Accidental Accidental Problem Active [facility] fall Fall 08-22 Family 00:00: Practic 00 e Long-term Long-term Problem Active Perry benny current Current 07 Family use of Use of 00:00: Practic insulin Insulin 00 e Hip pain Hip Pain Problem Active Azale a 03-09 Orthope 00:00: dic 00 Sports Medicin e Pain of Pain of Problem Active Arlin left hip Left Hip 03-09 Orthop e joint Joint 00:00: dic 00 Sports Medicin e Senile Senile Problem Active [place] purpura Purpura 12-23 Family 00:00: Practic 00 e Low back Low Back Problem Active [place] ge pain Pain 7-08 Family 00:00: Practic 00 e Morbid Morbid Problem Active [place] obesity Obesity 4-19 Family 00:00: Practic 00 e Proteinuri Proteinuri Problem Active [place] [facility] a a 2-17 Family 00:00: Practic e Body mass Body Mass Problem Active [...] Active [place] ill[place] 6-08 Family 00:00: Practic e Hyperlipid Hyperlipid Problem Active 2018-06 [facility] emia emia 2-05 Family 00:00: Practic 00 e Hypercalce Hypercalce Disease Active M ethodi lis lis 12-23 st 00:00: Hospita 00 l Primary [...] 00 e Keratoma Keratoma Problem Active 2017-06 Lex ge 0-10 Family 00:00: Practic 00 e [...] 00:00: di c 00 Sports Medicin e 43853, 29349, Diagnosis Active 2016-08-23 Me krystina 92331 X3, 86504 X3, 8-16 21:24:00 l CONNECTIVE CONNECTIVE 00:00: He rmann TISSUE AND TISSUE AND 00 D D Active 02/01/2016 [facility] HERNIATED HERNIATED Diagnosis Active 2016-02-01 Memoria LUMBAR LUMBAR - 22:00:00 l DISK S/P DISK S/P 00:00: Richard n FALL WITH FALL WITH 00 LT H LT H Active 01/11/2016 [facility] HERNIATED Diagnosis Active 2016-01-11 Memoria LUMBAR HERNIATED - 05:29:00 l DISK S/P LUMBAR 00:00: Luke FALL WITH DISK S/P 00 LEFT FALL WITH LEFT Active 01/10/2016 [facility] Knee pain Knee Pain Problem Active Aza maritza 6-09 Orthope 00:00: dic 00 Sports Medicin e 723.4 - 723.4 - Diagnosis Active 2013-12-02 Memoria BRACHIAL BRACHIAL 4-02 07:22:00 l NEURIT NEURIT 00:01: Luke Active 00 09/17/2013 [facility] 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 [facility] CERVICAL CERVICAL Diagnosis Active 2012-2012-10-07 Memoria RADICULITI RADICULITI - 13:29:00 l S, S, 00:00: Luke CERVICAL CERVICAL 00 DISC DISP DISC DISP Active 09/06/2012 [facility] Osteoarthr Osteoarthr Problem Active 2010-06 A hectortatianapaulino itis of itis of 0-25 Orthope knee Knee 00:00: dic 00 Sports Medicin e Diabetes Diabetes Problem Resolve 2013-03-21 Memoria mellitus mellitus d 20:07:44 l Resolved Luke Problem 03/21/2013 [facility] PHYLLIS Butler GERD - GERD - Problem Resolve 2013-03-21 Mem oria Gastro-eso Gastro-eso d 20:07:44 l phageal phageal [facility] reflux reflux disease disease Resolved Problem 03/21/2013 [facility] PHYLLIS Butler HLD - HLD - Problem Resolve 2013-03-21 Mem oria Hyperlipid Hyperlipid d 20:07:44 l emia emia [facility] Resolved Problem 03/21/2013 [facility] PHYLLIS Butler HTN - HTN - Problem Resolve 2013-03-21 Boy tadeo Hypertensi Hypertensi d 20:07:44 l on on [facility] Resolved Problem 03/21/2013 [facility] PHYLLIS Butler Neuropathy Neuropath Problem Resolve 2013-03-21 Memoria y Resolved d 20:07:44 l Problem [facility] 03/21/2013 [facility] PHYLLIS [place] Diabetes Diabetes Problem Active 2016-02-17 Memoria mellitus mellitus 00:32:37 l (disorder) (disorder) He rmann Active [facility] Problem Active 2016-02-17 Memoria nt of ent of 00:32:37 l lumbar lumbar Luke interverte interverte bral disc bral disc without without myelopathy myelopathy (disorder) (disorder) Active Problem 02/17/2016 [facility] Gastroesop Gastroeso Problem Active 2016-02-17 Memoria hageal phageal 00:32:37 l reflux reflux Luke disease disease (disorder) (disorder) Active Problem 02/17/2016 OPID Luke,[facility] Lumbar Lumbar Problem Active 2016-02-17 Boy tadeo radiculopa radiculopa 00:32:37 l thy thy Luke (disorder) (disorder) Active Problem 02/17/2016 [facility] Lumbar Lumbar Problem Active 2016-02-17 Mem oria spondylosi spondylosi 00:32:37 l s s Luke (disorder) (disorder) Active Problem 02/17/2016 [facility] 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 00:32:37 l of lumbar of lumbar Herm robert region region (disorder) (disorder) Active Problem 02/17/2016 [facility] 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 00:32:37 l (disorder) (disorder) He rmann Active Problem 02/17/2016 [facility] Interverte Intervert Problem Active 2016-02-17 Memoria bral disc ebral disc 00:32:37 l disorder disorder Richard n (disorder) (disorder) Active Problem 02/17/2016 [facility] Interverte Intervert Problem Active 2016-02-17 Memoria bral disc ebral disc 00:32:37 l stenosis stenosis Richard n of neural of neural canal canal (disorder) (disorder) Active Problem 02/17/2016 [facility] BRACHIAL BRACHIAL Diagnosis Active 2012-10-07 Memoria NEURITIS NEURITIS 13:29:00 l NOS NOS Active Richard thompson [facility] CERV DISC CERV DISC Diagnosis Active 2012-10-07 Memoria DIS W DIS W 13:29:00 l MYELOPAT MYELOPAT Richard n Active [facility] ILLNESS, ILLNESS, Diagnosis Active 2016-08-23 Memoria UNSPECIFIE UNSPECIFIE 21:24:00 l D D Active Luke [facility] No known No known Disease [place] active active Health problems problems Allergies, Adverse Reactions, Alerts Allergy Allergy Status Severity Reaction(s) Onset Inactive Treating Comm ents Source Name Type Date Date Clinician dulaglut DA Active [facility] 12-16 00:00: Orthope 00 dic Hospita l semaglut DA Active U DIARRHEA 2022-0 [facility] diane 7-01 [place] 00:00: Orthope 00 dic Hospita l No Known DA Active U [facility] Allergie 1-15 [place] s 00:00: Orthope 00 dic Hospita l Dulaglut Allergy Active Arlin diane to Orthope substanc dic e Sports Medicin e NKFA NKFA Active Memoria l Luke NO KNOWN Drug Active Univers ALLERGIE Class ity of S [facility] STATINS- Allergy Active Myalgias [place] [facility] HMG-COA to (muscle Family REDUCTAS substanc pain) Practi c E e e INHIBITO RS Social History Social Habit Start Date Stop Date Quantity Comments Source Gender identity 2021-11-07 Identifies as Method ist 10:21:00 female gender Hospital (finding) Sexual orientation 2021-11-07 Heterosexual Meth odist 10:21:00 (finding) Hospital History of Social 2022-12-13 2022-12-[address] function 00:00:00 00:00:00 Hospital Exposure to 2022-07-25 2022-08-04 Not sure University SARS-CoV-2 (event) 00:00:00 09:35:00 [facility] Tobacco use and 2021-11-28 2021-11-28 Smokeless tobacco [facility] exposure 00:00:00 00:00:00 non-user Cigarette 2021-11-28 2021-11-28 [facility] pack-years 00:00:00 00:00:00 Alcohol intake 2019-06-03 2019-06-03 Current drinker of Me thodist 00:00:00 00:00:00 alcohol (finding) Hospita l Social History 2016-01-11 2016-01-11 [facility] jennyfer 22:35:39 22:35:39 Sex Assigned At [birth year] [facility] 00:00:00 00:00:00 [facility] Smoking Status Start Date Stop Date Source Never smoked tobacco [facility] Tobacco smoking consumption Univ ersity [facility] Medications Ordered Filled Start Stop Current Ordering Indication Dosage Frequency Signature Comments Components Source Medication Medication Date Date Medication? Clinician (SIG) Name Name cinacalcet Yes [id number] TAKE 1 M ethodi (SENSIPAR) 3-[address] 30 MG 00:00: MOUTH Hospita tablet 00 TWICE A l DAY cinacalcet Yes [id number] TAKE 1 M ethodi (SENSIPAR) 3-[address] 30 MG 00:00: MOUTH Hospita tablet 00 TWICE A l DAY cinacalcet Yes [id number] TAKE 1 M ethodi (SENSIPAR) 1-[address] 30 MG 00:00: MOUTH Hospita tablet 00 TWICE A l DAY cinacalcet 2022- No [id number] TAKE 1 Methodi (SENSIPAR) 07-06-[address] 30 MG 00:00: 00:00 MOUTH Hospita tablet 00 :00 TWICE A l DAY cinacalcet 2022- No [id number] TAKE 1 Methodi (SENSIPAR) 07-06- TABLET BY st 30 MG 00:00: 00:00 MOUTH Hospita tablet 00 :00 TWICE A l DAY cinacalcet 2021-06- No [id number] TAKE 1 Methodi (SENSIPAR) 08-[address] 30 MG 00:00: 18:04 MOUTH Hospita tablet 00 :09 TWICE A l DAY cinacalcet 2021-06- No [id number] TAKE 1 Methodi (SENSIPAR) 08-[address] 30 MG 00:00: 18:04 MOUTH Hospita tablet 00 :09 TWICE A l DAY cinacalcet 2021-06- No [id number] TAKE 1 Methodi (SENSIPAR) 08-[address] 30 MG 00:00: 18:04 MOUTH Hospita tablet 00 :09 TWICE A l DAY cinacalcet 2021-06- No [id number] TAKE 1 Methodi (SENSIPAR) 07-[address] 30 MG 00:00: 00:00 MOUTH Hospita tablet 00 :00 TWICE A l DAY cinacalcet 2021-06- No [id number] TAKE 1 Methodi (SENSIPAR) 07-[address] 30 MG 00:00: 00:00 MOUTH Hospita tablet 00 :00 TWICE A l DAY cinacalcet 2021-06- No [id number] TAKE 1 Methodi (SENSIPAR) 07-[address] 30 MG 00:00: 00:00 MOUTH Hospita tablet 00 :00 TWICE A l DAY cinacalcet 2021-06- No [id number] TAKE 1 Methodi (SENSIPAR) 0-24 11-[address] 30 MG 00:00: 00:00 MOUTH Hospita tablet 00 :00 TWICE A l DAY cinacalcet 2021-06- No [id number] TAKE 1 Methodi (SENSIPAR) 0-24 11-[address] 30 MG 00:00: 00:00 MOUTH Hospita tablet 00 :00 TWICE A l DAY cinacalcet 2021-06- No [id number] TAKE 1 Methodi (SENSIPAR) 0-24 - TABLET BY st 30 MG 00:00: 00:00 MOUTH Hospita tablet 00 :00 TWICE A l DAY irbesartan Yes irbesartan U T (Avapro) 6-13 300 mg Health 300 MG 09:37: tablet RX tablet 16 by other linaGLIPtin Yes Tradjenta U T (Tradjenta) 6-13 5 mg Health 5 MG tablet 09:37: [...] tablet 16 semaglutide Yes Ozempic [place] (Ozempic, 6-13 0.25 mg or Heal th 0.25 or [...] 09:37: FlexTouch) 15 100 UNIT/ML injection HYDROcodone 2022- No [id number] 1{tbl} Q6H Take 1 UT -acetaminop 6-13 06-19 tablet by Manolo anthony ptahak ([place]) 00:00: 04:59 mouth 5-325 MG 00 :00 every 6 tablet (six) hours if needed for severe pain for up to 5 days. cinacalcet 2021-0 Yes cinacalcet U T (Sensipar) 07-18 30 mg Health 30 MG 00:00: tablet tablet 00 TAKE 1 TABLET BY MOUTH TWICE A DAY cinacalcet 2- No [id number] TAKE 1 Methodi (SENSIPAR) 07-18-[address] 30 MG 00:00: 00:00 MOUTH Hospita tablet 00 :00 TWICE A l DAY cinacalcet 2021- No [id number] TAKE 1 Methodi (SENSIPAR) 07-18-[address] 30 MG 00:00: 00:00 MOUTH Hospita tablet 00 :00 TWICE A l DAY cinacalcet 2- No [id number] TAKE 1 Methodi (SENSIPAR) 07-[address] 30 MG 00:00: 00:00 MOUTH Hospita tablet 00 :00 TWICE A l DAY cinacalcet 2021-0 2- No [id number] TAKE 1 [facility]i (SENSIPAR) 07-[address] 30 MG 00:00: 00:00 MOUTH Hospita tablet 00 :00 TWICE A l DAY cinacalcet 2020-2- No [id number] 30mg Q.5D Take 1 Methodi (SENSIPAR) 07-13 tablet (30 st 30 MG 00:00: 00:00 mg total) Hospit a tablet 00 :00 by mouth 2 l (two) times a day. dulaglutide 2020-0 Yes Inject Meth jesus (Trulicity) 6-[address] 1.5 mg/0.5 10:45: skin. Hospit a mL pen 28 l injector dulaglutide 2020-0 Yes Inject Meth jesus (Trulicity) 6-[address] 1.5 mg/0.5 10:45: skin. Hospit a mL pen 28 l injector dulaglutide 2020-0 Yes Inject Meth jesus (Trulicity) 6-[address] 1.5 mg/0.5 10:45: skin. Hospit a mL pen 28 l injector insulin 2020-0 Yes Inject Methodi degludec 6-[address] (TRESIBA 10:43: skin. Hospita U-100 24 l INSULIN SUBQ) insulin 2020-0 Yes Inject Methodi degludec 6-[address] (TRESIBA 10:43: skin. Hospita U-100 24 l INSULIN SUBQ) insulin 2020-0 Yes Inject Methodi degludec 6-17 under the [...] nightly. Hos radha mg tablet 43 l amLODIPine 2018-06 Yes 5mg QD Take 5 [...] nightly. Hos radha mg tablet 43 l amLODIPine 2018-06 Yes 5mg QD Take 5 [...] capsule 00 THREE l TIMES A DAY gabapentin 2018- Yes TAKE 1 Metho di (NEURONTIN) 6-[address] 300 mg 00:00: MOUTH Hospita capsule 00 THREE l TIMES A DAY gabapentin gabapentin 2018- No gabapentin Arlin 300 mg 300 mg 6-25 300 mg Orthope capsule capsule 00:00: capsule dic 00 Sports Medicin e gabapentin 2018- Yes TAKE 1 Metho di (NEURONTIN) 6-[address] 300 mg 00:00: MOUTH Hospita capsule 00 THREE l TIMES A DAY ACCU-CHEK 2019-0 Yes Q.5D 2 (two) Metho di FIOR PLUS 6-[address] TEST STRP 00:00: day. for Hosp gladys strip test 00 testing l strips ACCU-CHEK 2019-0 Yes USE Method i MULTICLIX 6-[address] LANCET 00:00: TWICE A Hospita lancets 00 DAY, l DIAGNOSIS E11.9 ACCU-CHEK 2019-0 Yes Q.5D 2 (two) Metho di FIOR PLUS 6-[address] TEST STRP 00:00: day. for Hosp gladys strip test 00 testing l strips ACCU-CHEK 2019-0 Yes USE Method i MULTICLIX 6-[address] LANCET 00:00: TWICE A Hospita lancets DAY, l DIAGNOSIS E11.9 ACCU-CHEK 2019-0 Yes Q.5D 2 (two) Metho di FIOR PLUS 6-[address] TEST STRP 00:00: day. for Hosp gladys strip test 00 testing l strips ACCU-CHEK 2019-0 Yes USE Method i MULTICLIX 6-[address] LANCET 00:00: TWICE A Hospita lancets 00 DAY, l DIAGNOSIS E11.9 TRADJENTA 5 2018- Yes 5mg QD Take 5 mg M ethodi mg tablet 6-[address] 00:00: daily. Hospita 00 l TRADJENTA 5 2018- Yes 5mg QD Take 5 mg M ethodi mg tablet 6-[address] 00:00: daily. Hospita 00 l Tradjenta 5 Tradjenta 5 2018- No 5mg Tradjenta Arlin mg tablet 5 mg tablet 5 6-13 5 mg O rthope mg by oral mg by oral 00:00: tablet 5 dic route. route. 00 mg by oral Sport s route. Medicin e TRADJENTA 5 Yes 5mg QD Take 5 mg M ethodi mg tablet 6-[address] 00:00: daily. Hospita 00 l VITAMIN D2 Yes TAKE ONE Met hodi 50,000 unit 6-[address] capsule 00:00: MOUTH ONE Hospi ta 00 TIME PER l WEEK VITAMIN D2 Yes TAKE ONE Met hodi 50,000 unit 6-[address] capsule 00:00: MOUTH ONE Hospi ta 00 TIME PER l WEEK ergocalcife ergocalcife No ergocalcif Arlin rol rol 6-10 loren Orthope (vitamin (vitamin 00:00: (vitamin d ic D2) 1,250 D2) 1,250 00 D2) 1,250 Sports mcg (50,000 mcg (50,000 mcg M edicin unit) unit) (50,000 e capsule capsule unit) capsule VITAMIN D2 Yes TAKE ONE Met hodi 50,000 unit 6-[address] capsule 00:00: MOUTH ONE Hospi ta 00 TIME PER l WEEK metFORMIN Yes TAKE 1 Method i XR 5-[address] (GLUCOPHAGE 00:00: MOUTH Hospi ta -XR) 500 mg 00 EVERY DAY l 24 hr IN THE tablet EVENING WITH DINNER metFORMIN Yes TAKE 1 Method i XR 5-[address] (GLUCOPHAGE 00:00: MOUTH Hospi ta -XR) 500 mg 00 EVERY DAY l 24 hr IN THE tablet EVENING WITH DINNER metformin metformin No metformin Arlin ER 500 mg ER 500 mg 5-26 ER 500 mg Orthope tablet,ext tablet,ext 00:00: tablet,ext dic rel 24 rel 24 00 rel 24 Sports hr-blood hr-blood hr-blood Med icin sugar sugar sugar e diagnostic diagnostic diagnostic strips strips strips metFORMIN Yes TAKE 1 Method i XR 5-[address] (GLUCOPHAGE 00:00: MOUTH Hospi ta -XR) 500 mg 00 EVERY DAY l 24 hr IN THE tablet EVENING WITH DINNER SOLIQUA Yes INJECT Methodi 100/33 100 5-[address] unit-33 00:00: SKIN 30 Hospita mcg/mL 00 UNITS l insulin pen EVERY MORNING AND INCREASE TO 60 DIRECTED SOLIQUA Yes INJECT Methodi 100/33 100 5-[address] unit-33 00:00: SKIN 30 Hospita mcg/mL 00 UNITS l insulin pen EVERY MORNING AND INCREASE TO 60 DIRECTED Soliqua Soliqua No Soliqua Falgunil ea 100/33 100 100/33 100 5-13 100/33 100 Orthope unit-33 unit-33 00:00: unit-33 dic mcg/mL mcg/mL 00 mcg/mL Sports subcutaneou subcutaneou subcutaneo Medicin s insulin s insulin us insulin e pen pen pen SOLIQUA Yes INJECT Methodi 100/33 100 5-13 [...] dicin needed needed spasms as e needed [place] 10 [place] 10 No [place] 10 A zalea mg-325 mg mg-325 mg [...] dicin needed needed spasms as e needed [place] 10 [place] 10 No [place] 10 A zalea mg-325 mg mg-325 mg [...] dicin needed needed spasms as e needed [place] 10 [place] 10 No [place] 10 A zalea mg-325 mg mg-325 mg [...] dicin needed needed spasms as e needed [place] 10 [place] 10 No [place] 10 A zalea mg-325 mg mg-325 mg [...] dicin needed needed spasms as e needed [place] 10 [place] 10 No [place] 10 A zalea mg-325 mg mg-325 mg 1-12 mg-325 mg Orthope tablet 1 Q tablet 1 Q 00:00: tablet 1 Q dic 4-6 HRS PRN 4-6 HRS PRN 00 4-6 HRS Sports PAIN PAIN PRN PAIN Medicin e Lipitor No Notes: Memoria 02-15 (Same As: l 02:00: Lipitor) Lipitor No Notes: Memoria 8 (Same As: l 02:00: Lipitor) Lipitor No Notes: Memoria 8 (Same As: l 02:00: Lipitor) Luke 00 Lipitor No Notes: Memoria 8-31 (Same As: l 02:00: Lipitor) Luke 00 Lipitor No Notes: Memoria 8-31 (Same As: l 02:00: Lipitor) [facility] 00 Lipitor No Notes: Memoria 8-31 (Same As: l 02:00: Lipitor) [facility] 00 Acetaminoph Yes 1 tab, PO, Memoria en 325 MG / 8-29 Q6H, PRN l Hydrocodone 12:49: pain, # 90 [facility] Bitartrate 00 tab, 0 10 MG Oral Refill(s), Tablet given to [[place] patient ] morphine 15 Yes 15 mg [...] tab, PO, l tablet 12:49: TID, PRN [facility] 00 as needed for muscle spasm, # 45 tab, 0 Refill(s) Acetaminoph Yes 1 tab, PO, Memoria en 325 MG / 8-29 Q6H, PRN l Hydrocodone 12:49: pain, # 90 Luke Bitartrate 00 tab, 0 10 MG Oral Refill(s), Tablet given to [[place] patient ] morphine 15 Yes 15 mg [...] tab, PO, l tablet 12:49: TID, PRN [facility] 00 as needed for muscle spasm, # 45 tab, 0 Refill(s) Acetaminoph Yes 1 tab, PO, Memoria en 325 MG / 8-29 Q6H, PRN l Hydrocodone 12:49: pain, # 90 [facility] Bitartrate 00 tab, 0 10 MG Oral Refill(s), Tablet given to [[place] patient ] morphine 15 Yes 15 mg [...] PRN l Hydrocodone 12:49: pain, # 90 [facility] Bitartrate 00 tab, 0 10 MG Oral Refill(s), Tablet given to [[place] patient ] morphine 15 Yes 15 mg [...] PRN l Hydrocodone 12:49: pain, # 90 [facility] Bitartrate 00 tab, 0 10 MG Oral Refill(s), Tablet given to [[place] patient ] morphine 15 Yes 15 mg [...] tab, PO, l tablet 12:49: TID, PRN [facility] 00 as needed for muscle spasm, # 45 tab, 0 Refill(s) Acetaminoph Yes 1 tab, PO, Memoria en 325 MG / 8-29 Q6H, PRN l Hydrocodone 12:49: pain, # 90 [facility] Bitartrate 00 tab, 0 10 MG Oral Refill(s), Tablet given to [[place] patient ] morphine 15 Yes 15 mg [...] tab, PO, l tablet 12:49: TID, PRN [facility] 00 as needed for muscle spasm, # 45 tab, 0 Refill(s) MS Contin No Notes: Do Mem oria 02-12 not crush l 02:00: (Same Luke 00 as:Eva aburto SR, MS Contin) MS Contin No Notes: Do Mem oria 8-28 not crush l 02:00: (Same Luke 00 as:Oram[employer] h SR, MS Contin) MS Contin No Notes: Do Mem oria 8-28 not crush l 02:00: (Same Luke 00 as:[employer]ram[employer] h SR, MS Contin) MS Contin No Notes: Do Mem oria 8-28 not crush l 02:00: (Same [facility] 00 as:[employer]ram[employer] h SR, MS Contin) MS Contin No Notes: Do Mem oria 8-28 not crush l 02:00: (Same Luke 00 as:[employer]ram[employer] h SR, MS Contin) MS Contin No Notes: Do Mem oria 8-28 not crush l 02:00: (Same Luke 00 as:[employer]ram[employer] h SR, MS Contin) Lipitor No Notes: Memoria 8-27 (Same As: l 02:00: Lipitor) Luke Lipitor No Notes: Memoria 8-27 (Same As: l 02:00: Lipitor) Seminary Lipitor No Notes: Memoria 8-27 (Same As: l 02:00: Lipitor) Seminary Lipitor No Notes: Memoria 8-27 (Same As: l 02:00: Lipitor) Luke Lipitor No Notes: Memoria 8-27 (Same As: l 02:00: Lipitor) Seminary Lipitor No Notes: Memoria 8-27 (Same As: l 02:00: Lipitor) Luke Tylenol No Notes: Do Memor ia 8-26 not exceed l 23:00: 4 gm/day. Luke (Same as: Tylenol) Tylenol No Notes: Do Memor ia 8-26 not exceed l 23:00: 4 gm/day. Luke (Same as: Tylenol) Tylenol No Notes: Do Memor ia 8-26 not exceed l 23:00: 4 gm/day. Seminary (Same as: Tylenol) Tylenol No Notes: Do Memor ia 8-26 not exceed l 23:00: 4 gm/day. Luke (Same as: Tylenol) Tylenol No Notes: Do Memor ia 8- not exceed l 23:00: 4 gm/day. Luke 00 (Same as: Tylenol) Tylenol No Notes: Do Memor ia 8- not exceed l 23:00: 4 gm/day. Seminary 00 (Same as: Tylenol) Bisacodyl No Notes: Memori a 8- (Same As: l 22:47: Dulcolax, Luke 00 Correctol) (Do Not Crush) "Do Not Crush" Bisacodyl No Notes: Memori a 8- (Same As: l 22:47: Dulcolax, Luke 00 Correctol) (Do Not Crush) "Do Not Crush" Bisacodyl No Notes: Memori a 8- (Same As: l 22:47: Dulcolax, Seminary 00 Correctol) (Do Not Crush) "Do Not Crush" Bisacodyl No Notes: Memori a 8- (Same As: l 22:47: Dulcolax, Seminary 00 Correctol) (Do Not Crush) "Do Not Crush" Bisacodyl No Notes: Memori a 8- (Same As: l 22:47: Dulcolax, Seminary 00 Correctol) (Do Not Crush) "Do Not Crush" Bisacodyl No Notes: Memori a 8- (Same As: l 22:47: Dulcolax, Luke 00 Correctol) (Do Not Crush) "Do Not Crush" Docusate No Notes: Memoria 8- (Same as: l 22:00: Colace) Seminary 00 (Do Not Crush) Docusate No Notes: Memoria 8- (Same as: l 22:00: Colace) Seminary 00 (Do Not Crush) Docusate No Notes: Memoria 8- (Same as: l 22:00: Colace) Seminary 00 (Do Not Crush) Docusate No Notes: Memoria 8- (Same as: l 22:00: Colace) Seminary 00 (Do Not Crush) Docusate No Notes: Memoria 8-26 (Same as: l 22:00: Colace) Seminary 00 (Do Not Crush) Docusate No Notes: Memoria 8-26 (Same as: l 22:00: Colace) Luke 00 (Do Not Crush) Simethicone No Notes: Boy tadeo 8-26 (Same as: l 21:04: Mylicon) Luke 00 Bisacodyl No Notes: Memori a 8-26 (Same As: l 21:04: Dulcolax, Seminary 00 Bisco-Lax) Simethicone No Notes: Boy tadeo 8-26 (Same as: l 21:04: Mylicon) Luke 00 Bisacodyl No Notes: Memori a 8-26 (Same As: l 21:04: Dulcolax, Luke 00 Bisco-Lax) Simethicone No Notes: Boy tadeo 8-26 (Same as: l 21:04: Mylicon) Seminary 00 Bisacodyl No Notes: Memori a 8-26 (Same As: l 21:04: Dulcolax, Seminary 00 Bisco-Lax) Simethicone No Notes: Boy tadeo 8-26 (Same as: l 21:04: Mylicon) Luke 00 Bisacodyl No Notes: Memori a 8-26 (Same As: l 21:04: Dulcolax, [facility] 00 Bisco-Lax) Simethicone No Notes: Boy tadeo 8-26 (Same as: l 21:04: Mylicon) Luke 00 Bisacodyl No Notes: Memori a 8-26 (Same As: l 21:04: Dulcolax, [facility] 00 Bisco-Lax) Simethicone No Notes: Boy tadeo 8-26 (Same as: l 21:04: Mylicon) [facility] 00 Bisacodyl No Notes: Memori a 8-26 (Same As: l 21:04: Dulcolax, Luke 00 Bisco-Lax) Baclofen No Notes: [facility]oria 8-26 (Same As: l 14:00: Lioresal) Baclofen No Notes: [facility] 8-26 (Same As: l 14:00: Lioresal) Luke 00 Baclofen No Notes: [facility] 8-26 (Same As: l 14:00: Lioresal) Baclofen No Notes: [facility] 8-26 (Same As: l 14:00: Lioresal) Baclofen No Notes: [facility]oria 8-26 (Same As: l 14:00: Lioresal) Baclofen No Notes: [facility] 8-26 (Same As: l 14:00: Lioresal) Dilaudid No Notes: [facility]oria 8-25 (Same as: l 22:54: Dilaudid) Dilaudid No Notes: [facility] 8-25 (Same as: l 22:54: Dilaudid) Dilaudid No Notes: [facility] 8-25 (Same as: l 22:54: Dilaudid) Dilaudid No Notes: [facility] 8-25 (Same as: l 22:54: Dilaudid) Dilaudid No Notes: [facility] 8-25 (Same as: l 22:54: Dilaudid) Dilaudid No Notes: [facility] 8-25 (Same as: l 22:54: Dilaudid) Acetaminoph No Notes: Boy tadeo en 325 MG / 02-09 (Same as: l Hydrocodone 22:52: [place] Anitra nn Bitartrate 00 325/5) Do 5 MG Oral not exceed Tablet 4gm/day of [[place] acetaminop 5/325] hen. Acetaminoph No Notes: Boy tadeo en 325 MG / 02-09 (Same as: l Hydrocodone 22:52: [place] Anitra nn Bitartrate 00 325/5) Do 5 MG Oral not exceed Tablet 4gm/day of [[place] acetaminop 5/325] hen. Acetaminoph No Notes: Boy tadeo en 325 MG / 8-25 (Same as: l Hydrocodone 22:52: [place] Anitra nn Bitartrate 00 325/5) Do 5 MG Oral not exceed Tablet 4gm/day of [[place] acetaminop 5/325] hen. Acetaminoph No Notes: Boy tadeo en 325 MG / 25 (Same as: l Hydrocodone 22:52: [place] Anitra nn Bitartrate 00 325/5) Do 5 MG Oral not exceed Tablet 4gm/day of [[place] acetaminop 5/325] hen. Acetaminoph No Notes: Boy tadeo en 325 MG / 25 (Same as: l Hydrocodone 22:52: [place] Anitra nn Bitartrate 00 325/5) Do 5 MG Oral not exceed Tablet 4gm/day of [[place] acetaminop 5/325] hen. Acetaminoph No Notes: Boy tadeo en 325 MG / 25 (Same as: l Hydrocodone 22:52: [place] Anitra nn Bitartrate 00 325/5) Do 5 MG Oral not exceed Tablet 4gm/day of [[place] acetaminop 5/325] hen. tradjenta No tradjenta, Me moria 8-24 5 mg, 1 l 20:00: tab, Drug Luke 00 form: MISC, Route: PO, Daily, 02/09/16 15:00:00 CDT, Duration: 30 day, Stop date: 03/10/16 9:00:00 CDT tradjenta No tradjenta, Me moria 8-24 5 mg, 1 l 20:00: tab, Drug [facility] 00 form: MISC, Route: PO, Daily, 02/09/16 15:00:00 CDT, Duration: 30 day, Stop date: 03/10/16 9:00:00 CDT tradjenta No tradjenta, Me moria 8-24 5 mg, 1 l 20:00: tab, Drug Luke 00 form: MISC, Route: PO, Daily, 02/09/16 15:00:00 CDT, Duration: 30 day, Stop date: 03/10/16 9:00:00 CDT tradjenta 2016-0 No tradjenta, Me moria 8-24 5 mg, 1 l 20:00: tab, Drug [facility] form: MISC, Route: PO, Daily, 02/09/16 15:00:00 CDT, Duration: 30 day, Stop date: 03/10/16 9:00:00 CDT tradjenta 2016-0 No tradjenta, Me moria 8-24 5 mg, 1 l 20:00: tab, Drug [facility] form: MISC, Route: PO, Daily, 02/09/16 15:00:00 CDT, Duration: 30 day, Stop date: 03/10/16 9:00:00 CDT tradjenta 2015-0 No tradjenta, Me moria 8-24 5 mg, 1 l 20:00: tab, Drug [facility] 00 form: MISC, Route: PO, Daily, 02/09/16 15:00:00 CDT, Duration: 30 day, Stop date: 03/10/16 9:00:00 CDT Rosuvastati 2016-0 Yes 2.5 mg, Mem oria n calcium 5 8-24 PO, l MG Oral 16:18: Bedtime, # Herm robert Tablet 00 30 tab, 0 [Crestor] Refill(s) Rosuvastati 2015-0 Yes 2.5 mg, Mem oria n calcium 5 8-24 PO, l MG Oral 16:18: Bedtime, # Herm robert Tablet 00 30 tab, 0 [Crestor] Refill(s) Rosuvastati 2016-0 Yes 2.5 mg, Mem oria n calcium 5 8-24 PO, l MG Oral 16:18: Bedtime, # Herm robert Tablet 00 30 tab, 0 [Crestor] Refill(s) Rosuvastati 2016-0 Yes 2.5 mg, Mem oria n calcium 5 8-24 PO, l MG Oral 16:18: Bedtime, # Herm robert Tablet 00 30 tab, 0 [Crestor] Refill(s) Rosuvastati 2016-0 Yes 2.5 mg, Mem o[facility] n calcium 5 8-24 PO, l MG Oral 16:18: Bedtime, # Herm robert Tablet 00 30 tab, 0 [Crestor] Refill(s) Rosuvastati 2016-0 Yes 2.5 mg, Mem oria n calcium 5 8-24 PO, l MG Oral 16:18: Bedtime, # Herm robert Tablet 00 30 tab, 0 [Crestor] Refill(s) Sodium 2015-0 No 25 mL, [facility] Chloride 02-08 Route: IV, l 0.9% IV 15:15: Start [facility] 00 date: 02/09/16 10:15:00 CDT, Duration: 30 day, Stop date: 03/10/16 10:14:00 CDT, PRN Line Flush BD Normal 0 No Notes: Memori a Saline 8-24 (Same as: l Flush 15:15: BD [facility] 00 Posiflush) Sodium 2015-0 No 25 mL, [facility] Chloride 02-08 Route: IV, l 0.9% IV 15:15: Start date: 02/09/16 10:15:00 CDT, Duration: 30 day, Stop date: 03/10/16 10:14:00 CDT, PRN Line Flush BD Normal No Notes: [facility] a Saline 24 (Same as: l Flush 15:15: BD [facility] 00 Posiflush) Sodium 2015-0 No 25 mL, [facility] Chloride 02-08 Route: IV, l 0.9% IV 15:15: Start date: 02/09/16 10:15:00 CDT, Duration: 30 day, Stop date: 03/10/16 10:14:00 CDT, PRN Line Flush BD Normal No Notes: Mem[facility] a Saline 24 (Same as: l Flush 15:15: BD Luke 00 Posiflush) Sodium 2015-0 No 25 mL, [facility] Chloride 02-08 Route: IV, l 0.9% IV 15:15: Start date: 02/09/16 10:15:00 CDT, Duration: 30 day, Stop date: 03/10/16 10:14:00 CDT, PRN Line Flush BD Normal No Notes: [facility] a Saline 8-24 (Same as: l Flush 15:15: BD Luke 00 Posiflush) Sodium 2015-0 No 25 mL, [facility] Chloride 24 Route: IV, l 0.9% IV 15:15: Start date: 02/09/16 10:15:00 CDT, Duration: 30 day, Stop date: 03/10/16 10:14:00 CDT, PRN Line Flush BD Normal No Notes: [facility] a Saline 8-24 (Same as: l Flush 15:15: BD Posiflush) Sodium No 25 mL, [facility] Chloride 824 Route: IV, l 0.9% IV 15:15: Start date: 02/09/16 10:15:00 CDT, Duration: 30 day, Stop date: 03/10/16 10:14:00 CDT, PRN Line Flush BD Normal No Notes: [facility] a Saline 8-24 (Same as: l Flush 15:15: BD Posiflush) [...] of water or juice. (Same as: Miralax) Spironolact No Notes: Boy tadeo one 8-24 (Same As: l 14:00: Aldactone) irbesartan No Notes: Memor ia 8-24 (Same l 14:00: as:Avapro) Tradjenta No 5 mg, [facility] 8-24 Route: PO, l 14:00: Drug form: [facility] 00 TAB, Daily, Dosing Weight 89.545, kg, [...] Dissolve l 14:00: in 8 oz of [facility] 00 water or juice. (Same as: Miralax) [...] Dissolve l 14:00: in 8 oz of [facility] 00 water or juice. (Same as: Miralax) Spironolact No Notes: Boy tadeo one 8-24 (Same As: l 14:00: Aldactone) irbesartan No Notes: Memor ia 8-24 (Same l 14:00: as:Avapro) Tradjenta No 5 mg, [facility] 8-24 Route: PO, l 14:00: Drug form: [facility] 00 TAB, Daily, Dosing Weight 89.545, kg, Start date: 02/09/16 9:00:00 CDT Furosemide No Notes: Memor ia 20 MG Oral 8-24 (Same as: l Tablet 14:00: Lasix) October Anitra cause GI upset. Give with food or [...] 824 Route: PO, l 14:00: Drug form: TAB, [...] as: Miralax) Insulin, No Notes: [facility] Aspart, 824 Roll in l Human 06:52: palms of Luke 00 hands gently; Do not shake vigorously . (Same as: NovoLOG) "single patient use only" WASTE: F/P - Black; E - Municipal Trash Bin Stable for 28 days at room temperatur e. Expires in days from ____Date Glucagon No 1 mg, [facility] 824 Route: IM, l 06:52: Drug form: PDR/INJ, [...] day, Stop date: 03/10/16 1:51:00 CDT Insulin, 2016-0 No Notes: [facility] Aspart, 8-24 Roll in l Human 06:52: palms of [facility] 00 hands gently; Do not shake vigorously . (Same as: NovoLOG) "single patient use only" WASTE: F/P - Black; E - Municipal Trash Bin Stable for 28 days at room temperatur e. Expires in days from ____Date Glucagon 2015-0 No 1 mg, [facility] 8-24 Route: IM, l 06:52: Drug form: Luke 00 PDR/INJ, PRN, Dosing Weight 89.545, kg, PRN Blood Glucose Results, Start date: 02/09/16 1:52:00 CDT, Duration: 30 day, Stop date: 03/10/16 1:51:00 CDT Dextrose 2015-0 No 25 gm, 50 Boy tadeo 50% Syringe 8-24 mL, Route: l 06:52: IVP, Drug 00 Form: INJ, Dosing Weight 89.545, kg, PRN, PRN Blood Glucose Results, Start date: 02/09/16 1:52:00 CDT, Duration: 30 day, Stop date: 03/10/16 1:51:00 CDT Insulin, 2016-0 No Notes: [facility] Aspart, 8-24 Roll in l Human 06:52: palms of Luke 00 hands gently; Do not shake vigorously . (Same as: NovoLOG) "single patient use only" WASTE: F/P - Black; E - Municipal Trash Bin Stable for 28 days at room temperatur e. Expires in days from ____Date Glucagon 2016-0 No 1 mg, [facility] 8-24 Route: IM, l 06:52: Drug form: [facility] 00 PDR/INJ, PRN, Dosing Weight 89.545, kg, PRN Blood Glucose Results, Start date: 02/09/16 1:52:00 CDT, Duration: 30 day, Stop date: 03/10/16 1:51:00 CDT Dextrose 2016-0 No 25 gm, 50 Boy tadeo 50% Syringe 8-24 mL, Route: l 06:52: IVP, Drug [facility] 00 Form: INJ, Dosing Weight 89.545, kg, PRN, PRN Blood Glucose Results, Start date: 02/09/16 1:52:00 CDT, Duration: 30 day, Stop date: 03/10/16 1:51:00 CDT Insulin, 2016-0 No Notes: [facility] Aspart, 8-24 Roll in l Human 06:52: palms of [facility] 00 hands gently; Do not shake vigorously . (Same as: NovoLOG) "single patient use only" WASTE: F/P - Black; E - Municipal Trash Bin Stable for 28 days at room temperatur e. Expires in days from ____Date Glucagon 2016-0 No 1 mg, [facility] 8-24 Route: IM, l 06:52: Drug form: Luke 00 PDR/INJ, PRN, Dosing Weight 89.545, kg, PRN Blood Glucose Results, Start date: 02/09/16 1:52:00 CDT, Duration: 30 day, Stop date: 03/10/16 1:51:00 CDT Dextrose 2016-0 No 25 gm, 50 Boy tadeo 50% Syringe 8-24 mL, Route: l 06:52: IVP, Drug Luke 00 Form: INJ, Dosing Weight 89.545, kg, PRN, PRN Blood Glucose Results, Start date: 02/09/16 1:52:00 CDT, Duration: 30 day, Stop date: 03/10/16 1:51:00 CDT Insulin, 2016-0 No Notes: [facility] Aspart, 8-24 Roll in l Human 06:52: palms of [facility] 00 hands gently; Do not shake vigorously . (Same as: NovoLOG) "single patient use only" WASTE: F/P - Black; E - Municipal Trash Bin Stable for 28 days at room temperatur e. Expires in days from ____Date Glucagon 2016-0 No 1 mg, [facility] 8-24 Route: IM, l 06:52: Drug form: [facility] 00 PDR/INJ, PRN, Dosing Weight 89.545, kg, PRN Blood Glucose Results, Start date: 02/09/16 1:52:00 CDT, Duration: 30 day, Stop date: 03/10/16 1:51:00 CDT Dextrose 2015-0 No 25 gm, 50 Boy tadeo 50% [...] only" WASTE: F/P - Black; E - [place] [employer] Trash Bin Stable for 28 days at room temperatur e. Expires in days from ____Date Glucagon 2015-0 No 1 mg, [facility] 8-24 Route: IM, l 06:52: Drug form: Luke 00 PDR/INJ, PRN, Dosing Weight 89.545, kg, PRN Blood Glucose Results, Start date: 02/09/16 1:52:00 CDT, Duration: 30 day, Stop date: 03/10/16 1:51:00 CDT Dextrose 2015-0 No 25 gm, 50 Boy tadeo 50% Syringe 8-24 mL, Route: l 06:52: IVP, Drug Form: INJ, Dosing Weight 89.545, kg, PRN, PRN Blood Glucose Results, Start date: 02/09/16 1:52:00 CDT, Duration: 30 day, Stop date: 03/10/16 1:51:00 CDT Crestor 2015-0 No Route: PO, Boy tadeo 8-24 Drug [...] 8-24 Give with l 02:00: food. Luke 00 (Same As: Coreg) Crestor No Route: PO, Boy tadeo 8-24 Drug form: l 02:00: TAB, [facility] 00 Bedtime, Dosing Weight 89.545, kg, Start [...] ia 8-24 Give with l 02:00: food. [facility] 00 (Same As: Coreg) Crestor No Route: [...] 8-24 Give with l 02:00: food. Luke 00 (Same As: Coreg) [facility] No Route: PO, Boy tadeo 8-24 Drug form: l 02:00: TAB, [facility] 00 Bedtime, Dosing Weight 89.545, kg, Start [...] 8-24 Give with l 02:00: food. Luke 00 (Same As: Coreg) Crestnm No Route: PO, Boy tadeo 8-24 Drug [...] Coreg) Crestor No Route: PO, Boy tadeo 02-08 Drug form: l 02:00: TAB, [facility] 00 Bedtime, Dosing Weight 89.545, kg, Start [...] PO, l MG Oral 23:47: BID, 0 [facility] Capsule 00 Refill(s) [Colace] Linagliptin No 5 [...] PO, l MG Oral 23:47: BID, 0 [facility] Capsule 00 Refill(s) [Colace] Linagliptin No 5 mg = 1 Me moria 5 MG Oral 8-23 tab, PO, l Tablet 23:47: Daily, 0 [facility] [Tradjenta] 00 Refill(s) 3 ML Yes 50 units, Mem[facility] Insulin 8-23 SUB-Q, l Glargine 23:47: Bedtime, 0 Her kowalski 100 UNT/ML 00 Refill(s) Prefilled Syringe [Lantus] glimepiride Yes 4 mg, PO, M emoria 8-23 Daily, 0 l 23:47: Refill(s) Luke Docusate Yes 100 mg = 1 Mem [...] emoria 8-23 Daily, 0 l 23:47: Refill(s) [facility] Docusate Yes 100 mg = 1 Mem oria Sodium 100 8-23 cap, PO, l MG Oral 23:47: BID, 0 [facility] Capsule 00 Refill(s) [Colace] Linagliptin No 5 mg = 1 Me moria 5 MG Oral 8-23 tab, PO, l Tablet 23:47: Daily, 0 [facility] [Tradjenta] 00 Refill(s) 3 ML Yes 50 units, [facility] Insulin 8-23 SUB-Q, l Glargine 23:47: Bedtime, 0 Her kowalski 100 UNT/ML 00 Refill(s) Prefilled Syringe [Lantus] glimepiride Yes 4 mg, PO, M emoria 8-23 Daily, 0 l 23:47: Refill(s) Luke Docusate Yes 100 mg = 1 Mem oria Sodium 100 8-23 cap, PO, l MG Oral 23:47: BID, 0 [facility] Capsule 00 Refill(s) [Colace] Linagliptin No 5 mg = 1 Me moria 5 MG Oral 8-23 tab, PO, l Tablet 23:47: Daily, 0 [facility] [Tradjenta] 00 Refill(s) 3 ML Yes 50 units, [facility] Insulin 8-23 SUB-Q, l Glargine 23:47: Bedtime, 0 Her kowalski 100 UNT/ML 00 Refill(s) Prefilled Syringe [Lantus] glimepiride Yes 4 mg, PO, M emoria 8-23 Daily, 0 l 23:47: Refill(s) [facility] 00 Docusate Yes 100 mg = 1 Mem oria Sodium 100 8-23 cap, PO, l MG Oral 23:47: BID, 0 [facility] Capsule 00 Refill(s) [Colace] Linagliptin No 5 mg = 1 Me moria 5 MG Oral 8-23 tab, PO, l Tablet 23:47: Daily, 0 [facility] [Tradjenta] 00 Refill(s) 3 ML Yes 50 units, Memoria Insulin 8-23 SUB-Q, l Glargine 23:47: Bedtime, 0 Her kowalski 100 UNT/ML 00 Refill(s) Prefilled Syringe [Lantus] glimepiride Yes 4 mg, PO, M emoria 8-23 Daily, 0 l 23:47: Refill(s) [facility] 00 Clonidine No 0.1 mg = 1 Me moria Hydrochlori 8-23 tab, PO, l de 0.1 MG 23:40: PRN Luke Oral Tablet 00 Hypertensi on, 0 Refill(s) Clonidine No 0.1 mg = 1 Me moria Hydrochlori 8-23 tab, PO, l de 0.1 MG 23:40: PRN [facility] Oral Tablet 00 Hypertensi on, 0 Refill(s) [...] PO, l de 0.1 MG 23:40: PRN [facility] Oral Tablet 00 Hypertensi on, 0 Refill(s) [...] 8-23 (Same As: l chloride 23:00: Ancef, [facility] 0.9% INJ 00 Kefzol) 100 mL MEDICATION WASTE Product Size: 1000 mg Product Wasted: ___ mg Ancef + No Notes: Memoria sodium 8-23 (Same As: l chloride 23:00: Ancef, [facility] 0.9% INJ 00 Kefzol) 100 mL MEDICATION WASTE Product Size: 1000 mg Product Wasted: ___ mg Ancef + No Notes: Memoria sodium 8-23 (Same As: l chloride 23:00: Ancef, [facility] 0.9% INJ 00 Kefzol) 100 mL MEDICATION WASTE Product Size: 1000 mg Product Wasted: ___ mg Docusate No Notes: Memoria Sodium 100 8-23 (Same as: l MG Oral 22:00: Colace) [facility] Capsule 00 (Do Not [Colace] Crush) Docusate No Notes: [facility] Sodium 100 8-23 (Same as: l MG Oral 22:00: Colace) [facility] Capsule 00 (Do Not [Colace] Crush) Docusate No Notes: [facility] Sodium 100 8-23 (Same as: l MG Oral 22:00: Colace) [facility] Capsule 00 (Do Not [Colace] Crush) Docusate No Notes: [facility] Sodium 100 8-23 (Same as: l MG Oral 22:00: Colace) [facility] Capsule 00 (Do Not [Colace] Crush) Docusate No Notes: [facility] Sodium 100 8-23 (Same as: l MG Oral 22:00: Colace) Luke Capsule 00 (Do Not [Colace] Crush) Docusate No Notes: [facility]oria Sodium 100 8-23 (Same as: l MG Oral 22:00: Colace) Luek Capsule 00 (Do Not [Colace] Crush) [facility], [facility] ia 02-07 Route: IV, l 19:25: ONCE, Luke 00 Dosing Weight 89, kg, Start date: 02/08/16 14:25:00 CDT, Stop date: 02/08/16 14:25:00 CDT [facility] mg, Memor ia 02-07 Route: IV, l 19:25: ONCE, Lkue 00 Dosing Weight 89, kg, Start date: 02/08/16 14:25:00 CDT, Stop date: 02/08/16 14:25:00 CDT [facility] mg, Memor ia 02-07 Route: IV, l 19:25: ONCE, Luke 00 Dosing Weight 89, kg, Start date: 02/08/16 14:25:00 CDT, Stop date: 02/08/16 14:25:00 CDT Ofirmev No 1,000 mg, Memor ia 02-07 Route: IV, l 19:25: ONCE, Dosing Weight 89, kg, Start date: 02/08/16 14:25:00 CDT, Stop date: 02/08/16 14:25:00 CDT Ofirmev No 1,000 mg, Memor ia 8 Route: IV, l 19:25: ONCE, Dosing Weight 89, kg, Start date: 02/08/16 14:25:00 CDT, Stop date: 02/08/16 14:25:00 CDT Ofirmev No 1,000 mg, Memor ia 02-07 Route: IV, l 19:25: ONCE, Dosing Weight 89, kg, Start date: 02/08/16 14:25:00 CDT, Stop date: 02/08/16 14:25:00 CDT Ondansetron No Notes: Boy tadeo 02-07 (Same as: l 18:22: Zofran) Seminary 00 MEDICATION WASTE Product Size: 4 mg Product Wasted: ___ mg Flumazenil No Notes: Memor ia 02-07 (Same as: l 18:22: Romazicon) Naloxone No Notes: Memoria 02-07 Same as l 18:22: Narcan Morphine No Notes: Memoria 02-07 (Same l 18:22: as:MORPhin e Sulfate) Sodium No 1,000 mL, Memori a Chloride 02-07 Rate: 125 l 0.154 18:22: ml/hr, Luke MEQ/ML 00 Infuse Injectable over: 8 Solution hr, Route: IV, Dosing Weight 89.545 kg, Total Volume: 1,000, Start date: 02/08/16 13:22:00 CDT, Duration: 30 day, Stop date: 03/09/16 13:21:00 CDT Ondansetron No Notes: Boy tadeo 8-23 (Same as: l 18:22: Zofran) Luke 00 MEDICATION WASTE Product Size: 4 mg Product Wasted: ___ mg Flumazenil No Notes: Memor ia - (Same as: l 18:22: Romazicon) [facility] Naloxone No Notes: Memoria 02-07 Same as l 18:22: Narcan [facility] Morphine No Notes: Memoria 02-07 (Same l 18:22: as:MORPhin [facility] 00 e Sulfate) Sodium No 1,000 mL, Memori a Chloride 02-07 Rate: 125 l 0.154 18:22: ml/hr, [facility] MEQ/ML 00 Infuse Injectable over: 8 Solution hr, Route: IV, Dosing Weight 89.545 kg, Total Volume: 1,000, Start date: 02/08/16 13:22:00 CDT, Duration: 30 day, Stop date: 03/09/16 13:21:00 CDT Ondansetron No Notes: Boy tadeo 02-07 (Same as: l 18:22: Zofran) Luke 00 MEDICATION WASTE Product Size: 4 mg Product Wasted: ___ mg Flumazenil No Notes: Memor ia 02-07 (Same as: l 18:22: Romazicon) Seminary Naloxone No Notes: Memoria 02-07 Same as l 18:22: Narcan [facility] Morphine No Notes: Memoria 02-07 (Same l 18:22: as:MORPhin Luke 00 e Sulfate) Sodium No 1,000 mL, Memori a Chloride 02-07 Rate: 125 l 0.154 18:22: ml/hr, [facility] MEQ/ML 00 Infuse Injectable over: 8 Solution hr, Route: IV, Dosing Weight 89.545 kg, Total Volume: 1,000, Start date: 02/08/16 13:22:00 CDT, Duration: 30 day, Stop date: 03/09/16 13:21:00 CDT Ondansetron No Notes: Boy tadeo 823 (Same as: l 18:22: Zofran) Luke 00 MEDICATION WASTE Product Size: 4 mg Product Wasted: ___ mg Flumazenil No Notes: Memor ia 8-23 (Same as: l 18:22: Romazicon) Seminary 00 Naloxone No Notes: Memoria 8- Same as l 18:22: Narcan [facility] Morphine No Notes: Memoria - (Same l 18:22: as:MORPhin Luke 00 e Sulfate) Sodium No 1,000 mL, Memori a Chloride 02-07 Rate: 125 l 0.154 18:22: ml/hr, Luke MEQ/ML 00 Infuse Injectable over: 8 Solution hr, Route: IV, Dosing Weight 89.545 kg, Total Volume: 1,000, Start date: 02/08/16 13:22:00 CDT, Duration: 30 day, Stop date: 03/09/16 13:21:00 CDT Ondansetron No Notes: Boy tadeo 02-07 (Same as: l 18:22: Zofran) Luke 00 MEDICATION WASTE Product Size: 4 mg Product Wasted: ___ mg Flumazenil No Notes: Memor ia 02-07 (Same as: l 18:22: Romazicon) Luke Naloxone No Notes: Memoria 02-07 Same as l 18:22: Narcan Luke Morphine No Notes: Memoria 02-07 (Same l 18:22: as:MORPhin [facility] 00 e Sulfate) Sodium No 1,000 mL, Memori a Chloride 02-07 Rate: 125 l 0.154 18:22: ml/hr, [facility] MEQ/ML 00 Infuse Injectable over: 8 Solution hr, Route: IV, Dosing Weight 89.545 kg, Total Volume: 1,000, Start date: 02/08/16 13:22:00 CDT, Duration: 30 day, Stop date: 03/09/16 13:21:00 CDT Ondansetron No Notes: Boy tadeo 8-23 (Same as: l 18:22: Zofran) Luke MEDICATION WASTE Product Size: 4 mg Product Wasted: ___ mg Flumazenil No Notes: Memor ia 8- (Same as: l 18:22: Romazicon) Luke Naloxone No Notes: Memoria - Same as l 18:22: Narcan Sem[facility] 00 Morphine No Notes: Memoria 02-07 (Same l 18:22: as:MORPhin [facility] 00 e Sulfate) Sodium No 1,000 mL, [...] Luke 00 Basal rate: 4hr limit: (Same as:Rapi-Je ct) Morphine No Notes: Memoria 02-07 Dose: l 18:00: Delay: Seminary 00 Basal rate: 4hr limit: (Same as:Rapi-Je ct) Morphine No Notes: Memoria 02-07 Dose: l 18:00: Delay: Luke 00 Basal rate: 4hr limit: (Same as:Rapi-Je ct) Morphine No Notes: Memoria 02-07 Dose: l 18:00: Delay: Luke 00 Basal rate: 4hr limit: (Same as:[place]api-Je ct) Morphine No Notes: Memoria 02-07 Dose: l 18:00: Delay: Seminary 00 Basal rate: 4hr limit: (Same as:Rapi-Je ct) Morphine No Notes: Memoria - Dose: l 18:00: Delay: Luke 00 Basal rate: 4hr limit: (Same as:[place]api-Je ct) Naloxone No Notes: Memoria 02-07 Same as l 17:53: Narcan [facility] 00 Acetaminoph No Notes: Do M emoria en 325 MG / 02-07 not exceed l Hydrocodone 17:53: 4gm/day of Luke Bitartrate 00 acetaminop 10 MG Oral hen. (Same Tablet as: [place] [[place] 325/10) 10/325] Zofran No Notes: Memoria 8-23 (Same as: l 17:53: Zofran) Seminary 00 MEDICATION WASTE Product Size: 4 mg Product Wasted: ___ mg Naloxone No Notes: Memoria 8- Same as l 17:53: Narcan [facility] Acetaminoph No Notes: Do M emoria en 325 MG / 8 not exceed l Hydrocodone 17:53: 4gm/day of Luke Bitartrate 00 acetaminop 10 MG Oral hen. (Same Tablet as: [place] [[place] 325/10) 10/325] Zofran No Notes: Memoria 8- (Same as: l 17:53: Zofran) Luke 00 MEDICATION WASTE Product Size: 4 mg Product Wasted: ___ mg Naloxone No Notes: Memoria 8- Same as l 17:53: Narcan [facility] Acetaminoph No Notes: Do M emoria en 325 MG / 02-07 not exceed l Hydrocodone 17:53: 4gm/day of Seminary Bitartrate 00 acetaminop 10 MG Oral hen. (Same Tablet as: [place] [[place] 325/10) 10/325] Zofran No Notes: Memoria 8- (Same as: l 17:53: Zofran) Luke 00 MEDICATION WASTE Product Size: 4 mg Product Wasted: ___ mg Naloxone No Notes: Memoria 8- Same as l 17:53: Narcan [facility] Acetaminoph No Notes: Do M emoria en 325 MG / 02-07 not exceed l Hydrocodone 17:53: 4gm/day of [facility] Bitartrate 00 acetaminop 10 MG Oral hen. (Same Tablet as: [place] [[place] 325/10) 10/325] Zofran No Notes: Memoria 8- (Same as: l 17:53: Zofran) Luke 00 MEDICATION WASTE Product Size: 4 mg Product Wasted: ___ mg Naloxone No Notes: Memoria 8-23 Same as l 17:53: Narcan Luke Acetaminoph No Notes: Do M emoria en 325 MG / 02-07 not exceed l Hydrocodone 17:53: 4gm/day of Luke Bitartrate 00 acetaminop 10 MG Oral hen. (Same Tablet as: [place] [[place] 325/10) [address]] Zofran No Notes: Memoria 02-07 (Same as: l 17:53: Zofran) [facility] 00 MEDICATION WASTE Product Size: 4 mg Product Wasted: ___ mg Naloxone No Notes: [facility] 02-07 Same as l 17:53: Narcan Acetaminoph No Notes: Do M emoria en 325 MG / 02-07 not exceed l Hydrocodone 17:53: 4gm/day of [facility] Bitartrate 00 acetaminop 10 MG Oral hen. (Same Tablet as: [place] [[place] 325/10) [address]] Zofran No Notes: [facility] 02-07 (Same as: [...] Notes: Memoria 02-07 Chlorasept l 17:52: ic [place] (Same as: Chlorasept ic, Sore Throat [place]) WASTE: F/P - Black; E - Municipal Trash Bin Robaxin No Notes: Memoria 8-23 (Same l 17:52: as:Robaxin ) Lactated No 1,000 mL, Boy tadeo Ringers 8-23 Rate: 75 l 1,000 mL 17:52: ml/hr, Infuse over: 13.3 hr, Route: IV, Dosing Weight 89.545 kg, Total Volume: 1,000, Start date: 02/08/16 12:52:00 CDT, Duration: 30 day, Stop date: 03/09/16 12:51:00 CDT Flexeril No Notes: [facility]oria 8-23 (Same As: l 17:52: Flexeril) [facility] 00 Diphenhydra No Notes: Boy tadeo mine 8-23 (Same as: l 17:52: Benadryl) phenol No Notes: [facility]oria 02-07 Chlorasept l 17:52: ic [place] (Same as: Chlorasept ic, Sore Throat [place]) WASTE: F/P - Black; E - Municipal Trash Bin Robaxin No Notes: [facility]oria 8-23 (Same l 17:52: as:Robaxin ) Lactated No 1,000 mL, Boy tadeo Ringers 8-23 Rate: 75 l 1,000 mL 17:52: ml/hr, Infuse over: 13.3 hr, Route: IV, Dosing Weight 89.545 kg, Total Volume: 1,000, Start date: 02/08/16 12:52:00 CDT, Duration: 30 day, Stop date: 03/09/16 12:51:00 CDT Flexeril No Notes: [facility]oria 8-23 (Same As: l 17:52: Flexeril) Diphenhydra No Notes: Boy tadeo mine 8-23 (Same as: l 17:52: Benadryl) phenol No Notes: Memoria 02-07 Chlorasept l 17:52: ic [place] (Same as: Chlorasept ic, Sore Throat [place]) WASTE: F/P - Black; E - Municipal Trash Bin Robaxin No Notes: [facility] 8-23 (Same l 17:52: as:Robaxin ) Lactated No 1,000 mL, Boy tadeo Ringers 8-23 Rate: 75 l 1,000 mL 17:52: ml/hr, [facility] 00 Infuse over: 13.3 hr, Route: IV, Dosing Weight 89.545 kg, Total Volume: 1,000, Start date: 02/08/16 12:52:00 CDT, Duration: 30 day, Stop date: 03/09/16 12:51:00 CDT Robaxin No Notes: [facility] 8-23 (Same l 17:52: as:Robaxin ) Lactated No 1,000 mL, Boy tadeo Ringers 8-23 Rate: 75 l 1,000 mL 17:52: ml/hr, [facility] 00 Infuse over: 13.3 hr, Route: IV, Dosing Weight 89.545 kg, Total Volume: 1,000, Start date: 02/08/16 12:52:00 CDT, Duration: 30 day, Stop date: 03/09/16 12:51:00 CDT Flexeril No Notes: Memoria 8- (Same As: l 17:52: Flexeril) Diphenhydra No Notes: Boy tadeo mine - (Same as: l 17:52: Benadryl) phenol No Notes: Memoria 02-07 Chlorasept l 17:52: ic [place] (Same as: Chlorasept ic, Sore Throat [place]) WASTE: F/P - Black; E - Municipal Trash Bin Flexeril No Notes: [facility]oria 8- (Same As: l 17:52: Flexeril) Luke 00 Diphenhydra No Notes: Boy tadeo mine 8- (Same as: l 17:52: Benadryl) [facility] 00 phenol No Notes: [facility]oria 02-07 Chlorasept l 17:52: ic [place] (Same as: Chlorasept ic, Sore Throat [place]) WASTE: F/P - Black; E - Municipal Trash Bin Diphenhydra No Notes: Boy tadeo mine 02-07 (Same as: l 17:52: Benadryl) phenol No Notes: [facility]oria 02-07 Chlorasept l 17:52: ic [place] (Same as: Chlorasept ic, Sore Throat [place]) WASTE: F/P - Black; E - Municipal [...] Memoria 02-07 (Same As: l 17:52: Flexeril) ceFAZolin No Notes: Memori a 02-07 Same as: l 03:00: Ancef ceFAZolin No Notes: Memori a 02-07 Same as: l 03:00: Ancef Luke 00 ceFAZolin No Notes: Memori a 02-07 Same as: l 03:00: Ancef ceFAZolin No Notes: Memori a 02-07 Same as: l 03:00: Ancef Luke 00 ceFAZolin No Notes: Memori a 02-07 Same as: l 03:00: Ancef [facility] 00 [email or web address] No Notes: Memori a 02-07 Same as: l 03:00: Ancef [facility] 00 carvedilol Yes 12.5 mg = Me moria [...] / 01-17 Same as l Hydrocodone 14:32: [place] Anitra nn Bitartrate 00 325-7.5mg 7.5 MG Oral Do not Tablet exceed [[place] 4gm/day of 7.5/325] acetaminop hen. Acetaminoph No Notes: Boy tadeo en 325 MG / 802 Same as l Hydrocodone 14:32: [place] Anitra nn Bitartrate 00 325-7.5mg 7.5 MG Oral Do not Tablet exceed [[place] 4gm/day of 7.5/325] acetaminop hen. Acetaminoph No Notes: Boy tadeo en 325 MG / 802 Same as l Hydrocodone 14:32: [place] Anitra nn Bitartrate 00 325-7.5mg 7.5 MG Oral Do not Tablet exceed [[place] 4gm/day of 7.5/325] acetaminop hen. Acetaminoph No Notes: Boy tadeo en 325 MG / 802 Same as l Hydrocodone 14:32: [place] Anitra nn Bitartrate 00 325-7.5mg 7.5 MG Oral Do not Tablet exceed [[place] 4gm/day of 7.5/325] acetaminop hen. Acetaminoph No Notes: Boy tadeo en 325 MG / 802 Same as l Hydrocodone 14:32: [place] Anitra nn Bitartrate 00 325-7.5mg 7.5 MG Oral Do not Tablet exceed [[place] 4gm/day of 7.5/325] acetaminop hen. Acetaminoph 0 No Notes: Boy tadeo en 325 MG / 02 Same as l Hydrocodone 14:32: [place] Anitra nn Bitartrate 00 325-7.5mg 7.5 MG Oral Do not Tablet exceed [[place] 4gm/day of 7.5/325] acetaminop hen. sodium 0 No 15 mmol, 5 Memor ia phosphate + 8-01 mL, Route: l sodium 21:42: IVPB, PRN, Anitra nn chloride 00 Dosing 0.9% INJ Weight 250 mL 97.983, kg, PRN Abnormal Lab Result, Start date: 01/17/16 16:42:00 CDT, Stop date: 02/16/16 16:41:00 CDT sodium 2015-0 No 15 mmol, 5 [facility] ia phosphate + 8-01 mL, Route: l sodium 21:42: IVPB, PRN, Anitra nn chloride 00 Dosing 0.9% INJ Weight 250 mL 97.983, kg, PRN Abnormal Lab Result, Start date: 01/17/16 16:42:00 CDT, Stop date: 02/16/16 16:41:00 CDT sodium 2016-0 No 15 mmol, 5 Memor ia phosphate + 8-01 mL, Route: l sodium 21:42: IVPB, PRN, Anitra nn chloride 00 Dosing 0.9% INJ Weight 250 mL 97.983, kg, PRN Abnormal Lab Result, Start date: 01/17/16 16:42:00 CDT, Stop date: 02/16/16 16:41:00 CDT sodium 2016-0 No 15 mmol, 5 Memor ia phosphate + 8-01 mL, Route: l sodium 21:42: IVPB, PRN, Anitra nn chloride 00 Dosing 0.9% INJ Weight 250 mL 97.983, kg, PRN Abnormal Lab Result, Start date: 01/17/16 16:42:00 CDT, Stop date: 02/16/16 16:41:00 CDT sodium 2015-0 No 15 mmol, 5 Memor ia phosphate [...] sodium, 01-15 porcine l porcine 02:00: heparin [facility] 2500 UNT/ML 00 Injectable Solution heparin No Notes: [facility] sodium, 01-15 porcine l porcine 02:00: heparin Luke 2500 UNT/ML 00 Injectable Solution heparin No Notes: [facility] sodium, 01-15 porcine l porcine 02:00: heparin [facility] 2500 UNT/ML 00 Injectable Solution heparin No Notes: [facility] sodium, - porcine l porcine 02:00: heparin Luke 2500 UNT/ML 00 Injectable Solution heparin No Notes: [facility] sodium, -31 porcine l porcine 02:00: heparin Luke 2500 UNT/ML 00 Injectable Solution heparin No Notes: [facility] sodium, 01-15 porcine [...] l Capsule 00:22: Neurontin) Herm robert 00 gabapentin No Notes: Memor ia 300 MG Oral 7-31 (Same as: l Capsule 00:22: Neurontin) Herm robert 00 Insulin, No Notes: [facility] Aspart, 7-29 Roll in l Human 21:30: palms of Luke 00 hands gently; Do not shake vigorously . (Same as: NovoLOG) "single patient use only" WASTE: F/P - Black; E - Municipal Trash Bin Stable for 28 days at room temperatur e. Expires in days from ____Date Insulin, No Notes: [facility] Aspart, 7-29 Roll in l Human 21:30: palms of Luke 00 hands gently; Do not shake vigorously . (Same as: NovoLOG) "single patient use only" WASTE: F/P - Black; E - Municipal Trash Bin Stable for 28 days at room temperatur e. Expires in days from ____Date Insulin, No Notes: [facility] Aspart, 7-29 Roll in l Human 21:30: palms of [facility] 00 hands gently; Do not shake vigorously . (Same as: NovoLOG) "single patient use only" WASTE: F/P - Black; E - Municipal Trash Bin Stable for 28 days at room temperatur e. Expires in days from ____Date Insulin, No Notes: [facility] Aspart, 7-29 Roll in l Human 21:30: palms of Luke 00 hands gently; Do not shake vigorously . (Same as: NovoLOG) "single patient use only" WASTE: F/P - Black; E - Municipal Trash Bin Stable for 28 days at room temperatur e. Expires in days from ____Date Insulin, No Notes: [facility] Aspart, 7-29 Roll in l Human 21:30: palms of Luke 00 hands gently; Do not shake vigorously . (Same as: NovoLOG) "single patient use only" WASTE: F/P - Black; E - Municipal Trash Bin Stable for 28 days at room temperatur e. Expires in days from ____Date Insulin, No Notes: [facility] Aspart, 01-13 Roll in l Human 21:30: palms of Luke 00 hands gently; Do not shake vigorously . (Same as: NovoLOG) "single patient use only" WASTE: F/P - Black; E - Municipal Trash Bin Stable for 28 days at room temperatur e. Expires in days from ____Date Hydralazine No Notes: Boy tadeo 7-29 (Same as: l 19:44: Apresoline Luke 00 ) Push over 5 minutes Hydralazine No Notes: Boy tadeo 7-29 (Same as: l 19:44: Apresoline [facility] 00 ) Push over 5 minutes Hydralazine No Notes: Boy tadeo 7-29 (Same as: l 19:44: Apresoline [facility] 00 ) Push over 5 minutes Hydralazine No Notes: Boy tadeo 7-29 (Same as: l 19:44: Apresoline Luke 00 ) Push over 5 minutes Hydralazine No Notes: Boy tadeo 7-29 (Same as: l 19:44: Apresoline [facility] 00 ) Push over 5 minutes Hydralazine No Notes: Boy tadeo 7-29 (Same as: l 19:44: Apresoline Luke 00 ) Push over 5 minutes Ativan No Notes: Memoria 7-28 (Same as: l 20:06: Ativan) Luke Ativan No Notes: [facility] 7-28 (Same as: l 20:06: Ativan) [facility]inary Ativan No Notes: [facility] 7-28 (Same as: l 20:06: Ativan) [facility] Ativan No Notes: [facility] 7-28 (Same as: l 20:06: Ativan) [facility] Ativan No Notes: [facility] 7-28 (Same as: l 20:06: Ativan) Luke Ativan No Notes: [facility] 01-12 (Same as: l 20:06: Ativan) [facility] Acetaminoph No 1 tab, Boy tadeo en 325 MG / 01-12 Route: PO, l Hydrocodone 20:05: Drug Form: [facility] Bitartrate 00 TAB, 10 MG Oral Dosing Tablet Weight [[place] 97.983, 10/325] kg, Q4H, Start date: 01/13/16 15:05:00 CDT, Stop date: 02/12/16 16:00:00 CDT Acetaminoph No 1 tab, Boy tadeo en 325 MG / 01-12 Route: PO, l Hydrocodone 20:05: Drug Form: Luke Bitartrate 00 TAB, 10 MG Oral Dosing Tablet Weight [[place] 97.983, 10/325] kg, Q4H, Start date: 01/13/16 15:05:00 CDT, Stop date: 02/12/16 16:00:00 CDT Acetaminoph No 1 tab, Boy tadeo en 325 MG / 01-12 Route: PO, l Hydrocodone 20:05: Drug Form: [facility] Bitartrate 00 TAB, 10 MG Oral Dosing Tablet Weight [[place] 97.983, 10/325] kg, Q4H, Start date: 01/13/16 15:05:00 CDT, Stop date: 02/12/16 16:00:00 CDT Acetaminoph No 1 tab, Boy tadeo en 325 MG / 01-12 Route: PO, l Hydrocodone 20:05: Drug Form: [facility] Bitartrate 00 TAB, 10 MG Oral Dosing Tablet Weight [[place] 97.983, 10/325] kg, Q4H, Start date: 01/13/16 15:05:00 CDT, Stop date: 02/12/16 16:00:00 CDT Acetaminoph No 1 tab, Boy tadeo en 325 MG / 01-12 Route: PO, l Hydrocodone 20:05: Drug Form: Luke Bitartrate 00 TAB, 10 MG Oral Dosing Tablet Weight [[place] 97.983, 10/325] kg, Q4H, Start date: 01/13/16 15:05:00 CDT, Stop date: 02/12/16 16:00:00 CDT Acetaminoph No 1 tab, Boy tadeo en 325 MG / 01-12 Route: PO, l Hydrocodone 20:05: Drug Form: [facility] Bitartrate 00 TAB, 10 MG Oral Dosing Tablet Weight [[place] 97.983, 10/325] kg, Q4H, Start date: 01/13/16 15:05:00 CDT, Stop date: 02/12/16 16:00:00 CDT Miralax No Notes: [facility] 7-28 Dissolve l 14:11: in 8 oz of [facility] 00 water or juice. (Same as: Miralax) Miralax No Notes: [facility] 7-28 Dissolve l 14:11: in 8 oz of [facility] 00 water or juice. (Same as: Miralax) Miralax No Notes: [facility] 7-28 Dissolve l 14:11: in 8 oz of Luke 00 water or juice. (Same as: Miralax) Miralax No Notes: [facility] 7-28 Dissolve l 14:11: in 8 oz of [facility] 00 water or juice. (Same as: Miralax) Miralax No Notes: [facility] 7-28 Dissolve l 14:11: in 8 oz of [facility] 00 water or juice. (Same as: Miralax) Miralax No Notes: [facility] 7-28 Dissolve l 14:11: in 8 oz of [facility] 00 water or juice. (Same as: Miralax) Lorazepam No 0.5 mg, Memor ia 01-11 Route: l 15:44: IVP, Drug form: INJ, ONCE, Dosing Weight 97.983, kg, PRN Anxiety, Priority: NOW, Start date: 01/12/16 10:44:00 CDT Lorazepam 0 No 0.5 mg, Memor ia 01-11 Route: l 15:44: IVP, Drug form: INJ, ONCE, Dosing Weight 97.983, kg, PRN Anxiety, Priority: NOW, Start date: 01/12/16 10:44:00 CDT Lorazepam 2015-0 No 0.5 mg, Memor ia 7-27 Route: l 15:44: IVP, Drug Luke form: INJ, ONCE, Dosing Weight 97.983, kg, PRN Anxiety, Priority: NOW, Start date: 01/12/16 10:44:00 CDT Lorazepam 2015-0 No 0.5 mg, Memor ia 7-27 Route: l 15:44: IVP, Drug Luke form: INJ, ONCE, Dosing Weight 97.983, kg, PRN Anxiety, Priority: NOW, Start date: 01/12/16 10:44:00 CDT Lorazepam 2015-0 No 0.5 mg, Memor ia 7- Route: l 15:44: IVP, Drug Luke form: INJ, ONCE, Dosing Weight 97.983, kg, PRN Anxiety, Priority: NOW, Start date: 01/12/16 10:44:00 CDT Lorazepam 2015-0 No 0.5 mg, Memor ia 7- Route: l 15:44: IVP, Drug [facility] 00 form: INJ, ONCE, Dosing Weight 97.983, kg, PRN Anxiety, Priority: NOW, Start date: 01/12/16 10:44:00 CDT Tradjenta 2015- No 5 mg, Memoria 7-27 Route: PO, l 14:00: Drug form: [facility] 00 TAB, Daily, Dosing Weight 97.983, kg, Start date: 01/12/16 9:00:00 CDT irbesartan No Notes: Memor ia 7-27 (Same l 14:00: as:Avapro) Furosemide No Notes: Memor ia 20 MG Oral 7-27 (Same as: l Tablet 14:00: Lasix) October cause GI upset. Give with food or milk. glimepiride No Notes: Boy tadeo 7-27 (Same as: l 14:00: Amaryl) Tradjenta 5 No Tradjenta M emoria mg [...] Memoria 7-27 (Same as: l 14:00: Colace) [facility] 00 (Do Not Crush) Spironolact No Notes: Boy [...] tadeo 7-27 (Same as: l 14:00: Amaryl) [facility] 00 Tradjenta 5 No Uriela M emoria mg 7-27 5 mg l (Patient's 14:00: (Patient's H ermann own 00 own medicine) medicine), 1 tab, Drug form: MISC, Route: PO, Daily, 01/12/16 9:00:00 CDT, Duration: 30 day, Stop date: 02/10/16 9:00:00 CDT Aspirin 81 No Notes: Do Me moria MG Enteric 7-27 not crush l Coated 14:00: or chew. [facility] Tablet 00 (Same As: Ecotrin) Amlodipine No Notes: Memor ia 7-27 (Same as: l 14:00: Norvasc) Docusate No Notes: Memoria 7-27 (Same as: l 14:00: Colace) Luke (Do Not Crush) Spironolact No Notes: Boy tadeo one - (Same As: l 14:00: Aldactone) Tradjenta No 5 mg, Memoria 7-27 Route: PO, l 14:00: Drug form: Luke 00 TAB, Daily, Dosing Weight 97.983, kg, Start date: 01/12/16 9:00:00 CDT irbesartan No Notes: Memor ia 7- (Same l 14:00: as:Avapro) Furosemide No Notes: Memor ia 20 MG Oral - (Same as: l Tablet 14:00: Lasix) May nn cause GI upset. Give with food or milk. glimepiride No Notes: Boy tadeo - (Same as: l 14:00: Amaryl) Tradjenta 5 No Tradjenta M emoria mg -27 5 mg l (Patient's 14:00: (Patient's H erm own 00 own medicine) medicine), 1 tab, Drug form: MISC, Route: PO, Daily, 01/12/16 9:00:00 CDT, Duration: 30 day, Stop date: 02/10/16 9:00:00 CDT Aspirin 81 No Notes: Do Me moria MG Enteric - not crush l Coated 14:00: or chew. [facility] Tablet (Same As: Ecotrin) Amlodipine No Notes: Memor ia 7-27 (Same as: l 14:00: Norvasc) Docusate No Notes: [facility]oria 7-27 (Same as: l 14:00: Colace) [facility] (Do Not Crush) Spironolact No Notes: Boy tadeo one - (Same As: l 14:00: Aldactone) Tradjenta No 5 mg, Memoria - Route: PO, l 14:00: Drug form: [facility] 00 TAB, Daily, Dosing Weight 97.983, kg, Start date: 01/12/16 9:00:00 CDT irbesartan No Notes: Memor ia 7-27 (Same l 14:00: as:Avapro) Furosemide No Notes: Memor ia 20 MG Oral 7-27 (Same as: l Tablet 14:00: Lasix) October cause GI upset. Give with food or milk. glimepiride No Notes: Boy tadeo 7-27 (Same as: l 14:00: Amaryl) Tradjenta 5 No Tradfedericoa M emoria mg 7-27 5 mg l [...] Memoria 7-27 (Same as: l 14:00: Colace) (Do Not Crush) Spironolact No Notes: Boy tadeo one 7-27 (Same As: l 14:00: Aldactone) Tradjenta No 5 mg, Memoria 7-27 Route: PO, l 14:00: Drug form: [facility] TAB, Daily, Dosing Weight 97.983, kg, Start date: 01/12/16 9:00:00 CDT irbesartan No Notes: Memor ia 7-27 (Same l 14:00: as:Avapro) Furosemide No Notes: Memor ia 20 MG Oral 7-27 (Same as: l Tablet 14:00: Lasix) October nn cause GI upset. Give with food or milk. glimepiride No Notes: Boy tadeo 7-27 (Same as: l 14:00: Amaryl) [facility] Tradjenta No Tradfedericoa Brian emoria mg 7-27 5 mg l (Patient's [...] Memoria 7-27 (Same as: l 14:00: Colace) [facility] (Do Not Crush) Spironolact No Notes: Boy tadeo one 7-27 (Same As: l 14:00: Aldactone) Tradjenta No 5 mg, Memoria 7-27 Route: PO, l 14:00: Drug form: Luke 00 TAB, Daily, Dosing Weight 97.983, kg, Start date: 01/12/16 9:00:00 CDT irbesartan No Notes: Memor ia 7-27 (Same l 14:00: as:Avapro) [facility] Furosemide No Notes: Memor ia 20 MG Oral 7-27 (Same as: l Tablet 14:00: Lasix) October Anitra nn cause GI upset. Give with food or milk. glimepiride No Notes: Boy tadoe 7-27 (Same as: l 14:00: Amaryl) Luke Tradjenta 5 No Tradfedericoa M emoria mg 7-27 5 mg l (Patient's 14:00: (Patient's H ermann own 00 own medicine) medicine), 1 tab, Drug form: MISC, Route: PO, Daily, 01/12/16 9:00:00 CDT, Duration: 30 day, Stop date: 02/10/16 9:00:00 CDT Aspirin 81 No Notes: Do Me moria MG Enteric 01-11 not crush l Coated 14:00: or chew. [facility] Tablet (Same As: Ecotrin) Amlodipine No Notes: Memor ia 01-11 (Same as: l 14:00: Norvasc) Docusate No Notes: Memoria 01-11 (Same as: l 14:00: Colace) (Do Not Crush) Spironolact No Notes: Boy tadeo one 01-11 (Same As: l 14:00: Aldactone) Ativan No Notes: Memoria 7- (Same as: l 13:54: Ativan) Ativan No Notes: [facility] 7- (Same as: l 13:54: Ativan) Ativan No Notes: [facility]oria 7- (Same as: l 13:54: Ativan) Ativan No Notes: [facility] 7- (Same as: l 13:54: Ativan) Ativan No Notes: [facility] 7- (Same as: l 13:54: Ativan) Ativan No Notes: [facility]oria 7- (Same as: l 13:54: Ativan) Sodium No [...] BD Normal No Notes: Memori a Saline 7-27 (Same as: l Flush 13:19: BD [facility] Posiflush) Sodium No 25 mL, [facility] Chloride - Route: IV, l 0.9% IV 13:19: Start date: 01/12/16 8:19:00 CDT, Duration: 30 day, Stop date: 02/11/16 8:18:00 CDT, PRN Line Flush BD Normal No Notes: Memori a Saline 7-27 (Same as: l Flush 13:19: BD [facility] 00 Posiflush) Sodium No 25 mL, Mem[facility] Chloride 01-11 Route: IV, l 0.9% IV 13:19: Start date: 01/12/16 8:19:00 CDT, Duration: 30 day, Stop date: 02/11/16 8:18:00 CDT, PRN Line Flush BD Normal No Notes: Memori a Saline 7-27 (Same as: l Flush 13:19: BD [facility] Posiflush) Sodium No 25 mL, [facility] Chloride 01-11 Route: IV, l 0.9% IV 13:19: Start [facility] 00 date: 01/12/16 8:19:00 CDT, Duration: 30 day, Stop date: 02/11/16 8:18:00 CDT, PRN Line Flush BD Normal No Notes: Memori a Saline 7-27 (Same as: l Flush 13:19: BD Luke Posiflush) Sodium No 25 mL, Memoria Chloride 7- Route: IV, l 0.9% IV 13:19: Start date: 01/12/16 8:19:00 CDT, Duration: 30 day, Stop date: 02/11/16 8:18:00 CDT, PRN Line Flush BD Normal No Notes: Memori a Saline 7-27 (Same as: l Flush 13:19: BD Luke 00 Posiflush) Insulin, No Notes: [facility] Aspart, 7-27 Roll in l Human 03:38: palms of [facility] 00 hands gently; Do not shake vigorously . (Same as: NovoLOG) "single patient use only" WASTE: F/P - Black; E - Municipal Trash Bin Stable for 28 days at room temperatur e. Expires in days from ____Date Dextrose 2015-0 No 12.5 gm, Memor ia 50% Syringe 7-27 25 mL, l 03:38: Route: Luke 00 IVP, Drug Form: INJ, Dosing Weight 97.983, kg, PRN, PRN Blood Glucose Results, Start date: 01/11/16 22:38:00 CDT, Duration: 30 day, Stop date: 02/10/16 22:37:00 CDT Glucagon 2015-0 No 1 mg, Memoria 7-27 Route: IM, l 03:38: Drug form: Luke 00 PDR/INJ, PRN, Dosing Weight 97.983, kg, PRN Blood Glucose Results, Start date: 01/11/16 22:38:00 CDT, Duration: 30 day, Stop date: 02/10/16 22:37:00 CDT Insulin, 2016-0 No Notes: [facility] Aspart, 7-27 Roll in l Human 03:38: palms of Luke 00 hands gently; Do not shake vigorously . (Same as: NovoLOG) "single patient use only" WASTE: F/P - Black; E - Municipal Trash Bin Stable for 28 days at room temperatur e. Expires in days from ____Date Dextrose 2015-0 No 12.5 gm, Memor ia 50% Syringe 7-27 25 mL, l 03:38: Route: [facility] 00 IVP, Drug Form: INJ, Dosing Weight 97.983, kg, PRN, PRN Blood Glucose Results, Start date: 01/11/16 22:38:00 CDT, Duration: 30 day, Stop date: 02/10/16 22:37:00 CDT Glucagon 2015-0 No 1 mg, Memoria 7-27 Route: IM, l 03:38: Drug form: [facility] 00 PDR/INJ, PRN, Dosing Weight 97.983, kg, PRN Blood Glucose Results, Start date: 01/11/16 22:38:00 CDT, Duration: 30 day, Stop date: 02/10/16 22:37:00 CDT Insulin, 2015-0 No Notes: [facility]oria Aspart, 7-27 Roll in l Human 03:38: palms of Luke 00 hands gently; Do not shake vigorously . (Same as: NovoLOG) "single patient use only" WASTE: F/P - Black; E - Municipal Trash Bin Stable for 28 days at room temperatur e. Expires in days from ____Date Dextrose 0 No 12.5 gm, Memor ia 50% Syringe 7-27 25 mL, l 03:38: Route: Luke 00 IVP, Drug Form: INJ, Dosing Weight 97.983, kg, PRN, PRN Blood Glucose Results, Start date: 01/11/16 22:38:00 CDT, Duration: 30 day, Stop date: 02/10/16 22:37:00 CDT Glucagon 0 No 1 mg, Memoria 7-27 Route: IM, l 03:38: Drug form: Luke 00 PDR/INJ, PRN, Dosing Weight 97.983, kg, PRN Blood Glucose Results, Start date: 01/11/16 22:38:00 CDT, Duration: 30 day, Stop date: 02/10/16 22:37:00 CDT Insulin, 2015-0 No Notes: [facility] Aspart, 7-27 Roll in l Human 03:38: palms of [facility] 00 hands gently; Do not shake vigorously . (Same as: NovoLOG) "single patient use only" WASTE: F/P - Black; E - Municipal Trash Bin Stable for 28 days at room temperatur e. Expires in days from ____Date Dextrose 2015-0 No 12.5 gm, Memor ia 50% Syringe 7-27 25 mL, l 03:38: Route: Luke 00 IVP, Drug Form: INJ, Dosing Weight 97.983, kg, PRN, PRN Blood Glucose Results, Start date: 01/11/16 22:38:00 CDT, Duration: 30 day, Stop date: 02/10/16 22:37:00 CDT Glucagon 2015-0 No 1 mg, Memoria 7- Route: IM, l 03:38: Drug form: Luke 00 PDR/INJ, PRN, Dosing Weight 97.983, kg, PRN Blood Glucose Results, Start date: 01/11/16 22:38:00 CDT, Duration: 30 day, Stop date: 02/10/16 22:37:00 CDT Insulin, 0 No Notes: Mem[facility] Aspart, 7-27 Roll in l Human 03:38: palms of [facility] 00 hands gently; Do not shake vigorously . (Same as: NovoLOG) "single patient use only" WASTE: F/P - Black; E - Municipal Trash Bin Stable for 28 days at room temperatur e. Expires in days from ____Date Dextrose No 12.5 gm, Memor ia 50% Syringe 01-11 25 mL, l 03:38: Route: Luke 00 IVP, Drug Form: INJ, Dosing Weight 97.983, kg, PRN, PRN Blood Glucose Results, Start date: 01/11/16 22:38:00 CDT, Duration: 30 day, Stop date: 02/10/16 22:37:00 CDT Glucagon 0 No 1 mg, Memoria 7- Route: IM, l 03:38: Drug form: Luke 00 PDR/INJ, PRN, Dosing Weight 97.983, kg, PRN Blood Glucose Results, Start date: 01/11/16 22:38:00 CDT, Duration: 30 day, Stop date: 02/10/16 22:37:00 CDT Insulin, 2015-0 No Notes: [facility] Aspart, 7-27 Roll in l Human 03:38: palms of [facility] 00 hands gently; Do not shake vigorously . (Same as: NovoLOG) "single patient use only" WASTE: F/P - Black; E - Municipal Trash Bin Stable for 28 days at room temperatur e. Expires in days from ____Date Dextrose 2016-0 No 12.5 gm, Memor ia 50% Syringe 01-11 25 mL, l 03:38: Route: Luke IVP, Drug Form: INJ, Dosing Weight 97.983, kg, PRN, PRN Blood Glucose Results, Start date: 01/11/16 22:38:00 CDT, Duration: 30 day, Stop date: 02/10/16 22:37:00 CDT Glucagon No 1 mg, Memoria 01-11 Route: IM, l 03:38: Drug form: Luke PDR/INJ, PRN, Dosing Weight 97.983, kg, PRN Blood Glucose Results, Start date: 01/11/16 22:38:00 CDT, Duration: 30 day, Stop date: 02/10/16 22:37:00 CDT Lipitor No Notes: Memoria 01-11 (Same As: l 02:38: Lipitor) [facility]inary 00 Lipitor No Notes: Memoria 01-11 (Same As: l 02:38: Lipitor) [facility] 00 Lipitor No Notes: Memoria 01-11 (Same As: l 02:38: Lipitor) [facility] 00 Lipitor No Notes: Memoria 01-11 (Same As: l 02:38: Lipitor) Lipitor No Notes: Memoria 01-11 (Same As: l 02:38: Lipitor) Luke 00 Lipitor No Notes: Memoria 01-11 (Same As: [...] tadeo 01-11 Drug form: l 02:00: TAB, [facility] 00 Bedtime, Dosing Weight 97.983, kg, Start date: 01/11/16 21:00:00 CDT, Duration: 30 day, Stop date: 02/09/16 21:00:00 CDT Lantus No Notes: Memoria 7- Same as l 02:00: Lantus [facility] 00 Solostar PEN Do not hold insulin without contacting prescriber "single patient use only" WASTE: F/P - Black; E - Municipal Trash Bin Stable for 28 days at room temperatur e. Expires in days from ____Date carvedilol No Notes: Memor ia 7-27 Give with l 02:00: food. Luke 00 (Same As: Coreg) Crestor No Route: PO, Boy tadeo 7-27 Drug form: l 02:00: TAB, Luke 00 Bedtime, Dosing Weight 97.983, kg, Start date: 01/11/16 21:00:00 CDT, Duration: 30 day, Stop date: 02/09/16 21:00:00 CDT Lantus No Notes: Memoria 7 Same as l 02:00: Lantus [facility] 00 Solostar PEN Do not hold insulin without contacting prescriber "single patient use only" WASTE: F/P - Black; E - Municipal Trash Bin Stable for 28 days at room temperatur e. Expires in days from ____Date carvedilol No Notes: Memor ia 7-27 Give with l 02:00: food. Luke 00 (Same As: Coreg) Crestor No Route: PO, Boy tadeo 7-27 Drug form: l 02:00: TAB, [facility] 00 Bedtime, Dosing Weight 97.983, kg, Start date: 01/11/16 21:00:00 CDT, Duration: 30 day, Stop date: 02/09/16 21:00:00 CDT Lantus No Notes: Memoria 7-27 Same as l 02:00: Lantus Luke 00 Solostar PEN Do not hold insulin without contacting prescriber "single patient use only" WASTE: F/P - Black; E - Municipal Trash Bin Stable for 28 days at room temperatur e. Expires in days from ____Date carvedilol No Notes: Memor ia 7-27 Give with l 02:00: food. Seminary (Same As: Coreg) [facility] No Route: PO, Boy tadeo 7-27 Drug form: l 02:00: TAB, Seminary 00 Bedtime, Dosing Weight 97.983, kg, Start date: 01/11/16 21:00:00 CDT, Duration: 30 day, Stop date: 02/09/16 21:00:00 CDT Lantus No Notes: Memoria 7 Same as l 02:00: Lantus [facility] 00 Solostar PEN Do not hold insulin without contacting prescriber "single patient use only" WASTE: F/P - Black; E - Municipal Trash Bin Stable for 28 days at room temperatur e. Expires in days from ____Date carvedilol No Notes: Memor ia 7- Give with l 02:00: food. Seminary 00 (Same As: Coreg) [facility] No Route: PO, Boy tadeo 7-27 Drug form: l 02:00: TAB, Luke 00 Bedtime, Dosing Weight 97.983, kg, Start date: 01/11/16 21:00:00 CDT, Duration: 30 day, Stop date: 02/09/16 21:00:00 CDT Lantus No Notes: Memoria 727 Same as l 02:00: Lantus Luke 00 Solostar PEN Do not hold insulin without contacting prescriber "single patient use only" WASTE: F/P - Black; E - Municipal Trash Bin Stable for 28 days at room temperatur e. Expires in days from ____Date carvedilol No Notes: Memor ia 7-27 Give with l 02:00: food. Seminary 00 (Same As: Coreg) Crestor No Route: PO, Boy tadeo 01-11 Drug form: l 02:00: TAB, Luke 00 Bedtime, Dosing Weight 97.983, kg, Start date: 01/11/16 21:00:00 CDT, Duration: 30 day, Stop date: 02/09/16 21:00:00 CDT Acetaminoph No Notes: Do M emoria en 325 MG / 01-10 not exceed l Hydrocodone 23:00: 4gm/day of Luke Bitartrate 00 acetaminop 10 MG Oral hen. (Same Tablet as: [place] [[place] 325/10) 10/325] Enoxaparin No Notes: Memor ia 01-10 (Same as: l 23:00: Lovenox) Seminary 00 Acetaminoph No Notes: Do M emoria en 325 MG / 01-10 not exceed l Hydrocodone 23:00: 4gm/day of Luke Bitartrate 00 acetaminop 10 MG Oral hen. (Same Tablet as: [place] [[place] 325/10) 10/325] Enoxaparin No Notes: Memor ia 01-10 (Same as: l 23:00: Lovenox) Seminary Acetaminoph No Notes: Do M emoria en 325 MG / 01-10 not exceed l Hydrocodone 23:00: 4gm/day of Luke Bitartrate 00 acetaminop 10 MG Oral hen. (Same Tablet as: [place] [[place] 325/10) 10/325] Enoxaparin No Notes: Memor ia - (Same as: l 23:00: Lovenox) Seminary 00 Acetaminoph No Notes: Do M emoria en 325 MG / 01-10 not exceed l Hydrocodone 23:00: 4gm/day of [facility] Bitartrate 00 acetaminop 10 MG Oral hen. (Same Tablet as: [place] [[place] 325/10) 10/325] Enoxaparin No Notes: Memor ia - (Same as: l 23:00: Lovenox) Seminary 00 Acetaminoph No Notes: Do M emoria en 325 MG / 7-26 not exceed l Hydrocodone 23:00: 4gm/day of Sem[facility] Bitartrate 00 acetaminop 10 MG Oral hen. (Same Tablet as: [place] [[place] 325/10) [address]] Enoxaparin No Notes: Memor ia 7-26 (Same as: l 23:00: Lovenox) Luke Acetaminoph No Notes: Do M emoria en 325 MG / 7-26 not exceed l Hydrocodone 23:00: 4gm/day of Seminary Bitartrate 00 acetaminop 10 MG Oral hen. (Same Tablet as: [place] [[place] 325/10) [address]] Enoxaparin No Notes: Memor ia 7-26 (Same as: l 23:00: Lovenox) Seminary Clonidine No Notes: Memori a Hydrochlori 7-26 [...] 22:56: Catapres) Her kowalski Oral Tablet 00 Saline No Notes: Memoria Flush 0.9% 7-26 (Same as: l 22:53: BD [facility] 00 Posiflush) Morphine No Notes: Memoria 7-26 (Same l 22:53: as:MORPhin Luke 00 e Sulfate) Ondansetron No Notes: Boy tadeo 7-26 (Same as: l 22:53: Zofran) 00 MEDICATION WASTE Product Size: 4 mg Product Wasted: ___ mg Acetaminoph No 100.4 F, Brian carmona en 01-10 Start l 22:53: date: 01/11/16 17:53:00 CDT, Duration: 30 day, Stop date: 02/10/16 17:52:00 CDT Sodium No 1,000 mL, Memori a Chloride 7- Rate: 45 l 0.154 22:53: ml/hr, Luke MEQ/ML 00 Infuse Injectable over: 22.2 Solution hr, Route: IV, Dosing Weight 97.983 kg, Total Volume: 1,000, Start date: 01/11/16 17:53:00 CDT, Duration: 30 day, Stop date: 02/10/16 17:52:00 CDT Saline No Notes: Memoria Flush 0.9% -26 (Same as: l 22:53: BD [facility] 00 Posiflush) Morphine No Notes: Memoria 7-26 (Same l 22:53: as:MORPhin Luke 00 e Sulfate) Ondansetron No Notes: Boy tadeo - (Same as: l 22:53: Zofran) Luke 00 MEDICATION WASTE Product Size: 4 mg Product Wasted: ___ mg Acetaminoph No 100.4 Brian Quiles en 01-10 Start l 22:53: date: 01/11/16 17:53:00 CDT, Duration: 30 day, Stop date: 02/10/16 17:52:00 CDT Sodium 2015-0 No 1,000 mL, Memori a Chloride 7-26 Rate: 45 l 0.154 22:53: ml/hr, [facility] MEQ/ML 00 Infuse Injectable over: 22.2 Solution hr, Route: IV, Dosing Weight 97.983 kg, Total Volume: 1,000, Start date: 01/11/16 17:53:00 CDT, Duration: 30 day, Stop date: 02/10/16 17:52:00 CDT Saline No Notes: Memoria Flush 0.9% 7-26 (Same as: l 22:53: BD [facility] 00 Posiflush) Morphine No Notes: Memoria 7-26 (Same l 22:53: as:MORPhin Luke 00 e Sulfate) Ondansetron No Notes: Boy tadeo 7-26 (Same as: l 22:53: Zofran) [facility]inary 00 MEDICATION WASTE Product Size: 4 mg Product Wasted: ___ mg Acetaminoph No 100.4 F, M kristine en 01-10 Start l 22:53: date: 01/11/16 17:53:00 CDT, Duration: 30 day, Stop date: 02/10/16 17:52:00 CDT Sodium No 1,000 mL, Memori a Chloride 01-10 Rate: 45 l 0.154 22:53: ml/hr, [facility] MEQ/ML 00 Infuse Injectable over: 22.2 Solution hr, Route: IV, Dosing Weight 97.983 kg, Total Volume: 1,000, Start date: 01/11/16 17:53:00 CDT, Duration: 30 day, Stop date: 02/10/16 17:52:00 CDT Saline No Notes: [facility]oria Flush 0.9% - (Same as: l 22:53: BD [facility] 00 Posiflush) Morphine No Notes: Memoria 7-26 (Same l 22:53: as:MORPhin [facility] 00 e Sulfate) Ondansetron No Notes: Boy tadeo 7-26 (Same as: l 22:53: Zofran) [facility] 00 MEDICATION WASTE Product Size: 4 mg Product Wasted: ___ mg Acetaminoph No 100.4 F, M emoria en 01-10 Start l 22:53: date: Luke 00 01/11/16 17:53:00 CDT, Duration: 30 day, Stop date: 02/10/16 17:52:00 CDT Sodium No 1,000 mL, Memori a Chloride - Rate: 45 l 0.154 22:53: ml/hr, Luke MEQ/ML 00 Infuse Injectable over: 22.2 Solution hr, Route: IV, Dosing Weight 97.983 kg, Total Volume: 1,000, Start date: 01/11/16 17:53:00 CDT, Duration: 30 day, Stop date: 02/10/16 17:52:00 CDT Saline No Notes: [facility] Flush 0.9% -26 (Same as: l 22:53: BD [facility] 00 Posiflush) Morphine No Notes: Memoria 7- (Same l 22:53: as:MORPhin [facility] 00 e Sulfate) Ondansetron No Notes: Boy tadeo 01-10 (Same as: l 22:53: Zofran) [facility] 00 MEDICATION WASTE Product Size: 4 mg Product Wasted: ___ mg Acetaminoph No 100.4 F, M kristine en 01-10 Start l 22:53: date: [facility] 01/11/16 17:53:00 CDT, Duration: 30 day, Stop [...] CDT Saline No Notes: [facility]oria Flush 0.9% - (Same as: l 22:53: BD Luke 00 Posiflush) Morphine No Notes: Memoria 7-26 (Same l 22:53: as:MORPhin [facility] 00 e Sulfate) Ondansetron No Notes: Boy tadeo 01-10 (Same as: l 22:53: Zofran) MEDICATION WASTE Product Size: 4 mg Product Wasted: ___ mg Acetaminoph No 100.4 F, M emoria en 01-10 Start l 22:53: date: Luke 01/11/16 17:53:00 CDT, Duration: 30 day, Stop date: 02/10/16 17:52:00 CDT irbesartan Yes 300 mg = 1 M emoria 300 mg oral 7-26 tab, PO, l tablet 22:27: Daily, # [facility] 00 30 tab, 0 Refill(s) irbesartan Yes 300 mg = 1 M emoria 300 mg oral 7-26 tab, PO, l tablet 22:27: Daily, # [facility] 00 30 tab, 0 Refill(s) irbesartan Yes 300 mg = 1 M emoria 300 mg oral 7-26 tab, PO, l tablet 22:27: Daily, # [facility] 00 30 tab, 0 Refill(s) irbesartan Yes 300 mg = 1 M emoria 300 mg oral 7-26 tab, PO, l tablet 22:27: Daily, # Luke 00 30 tab, 0 Refill(s) irbesartan 0 Yes 300 mg = 1 M emoria 300 mg oral 7-26 tab, PO, l tablet 22:27: Daily, # [facility] 00 30 tab, 0 Refill(s) irbesartan Yes 300 mg = 1 M emoria 300 mg oral 7-26 tab, PO, l tablet 22:27: Daily, # [facility] 00 30 tab, 0 Refill(s) Co Q-10 100 Yes 200 mg = 2 Memoria mg oral 7-26 cap, PO, l capsule 22:21: Daily, 0 Richard n 00 Refill(s) Aspirin 81 Yes 81 mg = 1 Me moria MG Enteric 7-26 tab, PO, l Coated 22:21: Daily, # Seminary Tablet 00 90 tab, 3 Refill(s) Vitamin D3 Yes 2,000 Memori a -26 IntlUnit, l 22:21: PO, Daily, [facility] 00 0 Refill(s) Rosuvastati Yes See Memori [...] tab, PO, l Tablet 22:21: Daily, # [facility] 00 30 tab, 0 Refill(s) Co Q-10 100 Yes 200 mg = 2 Memoria mg oral 7-26 cap, PO, l capsule 22:21: Daily, 0 Richard n 00 Refill(s) Co Q-10 100 Yes 200 mg = 2 Memoria mg oral 7-26 cap, PO, l capsule 22:21: Daily, 0 Richard n 00 Refill(s) Aspirin 81 Yes 81 mg = 1 Me moria MG Enteric 7-26 tab, PO, l Coated 22:21: Daily, # [facility] Tablet 00 90 tab, 3 Refill(s) Vitamin D3 Yes 2,000 Memori a 7-26 IntlUnit, l 22:21: PO, Daily, [facility] 00 0 Refill(s) Aspirin 81 Yes 81 mg = 1 Me moria MG Enteric 7-26 tab, PO, l Coated 22:21: Daily, # Luke Tablet 00 90 tab, 3 Refill(s) Rosuvastati Yes See Memori a n [...] # Luke 00 30 tab, 0 Refill(s) Vitamin D3 Yes 2,000 Memori a [...] 0 Richard n 00 Refill(s) Aspirin 81 2016 Yes 81 mg = 1 Me moria [...] tab, PO, l Tablet 22:21: Daily, # [facility] 00 30 tab, 0 Refill(s) Linagliptin Yes 5 mg = 1 Me moria 5 MG Oral 7-26 tab, PO, l Tablet 22:13: Daily, # Luke [Tradjenta] 00 30 tab, 3 Refill(s) Linagliptin Yes 5 mg = 1 Me moria 5 MG Oral 7-26 tab, PO, l Tablet 22:13: Daily, # [facility] [Tradjenta] 00 30 tab, 3 Refill(s) Linagliptin Yes 5 mg = 1 Me moria 5 MG Oral 7-26 tab, PO, l Tablet 22:13: Daily, # [facility] [Tradjenta] 00 30 tab, 3 Refill(s) Linagliptin Yes 5 mg = 1 Me moria 5 MG Oral 7-26 tab, PO, l Tablet 22:13: Daily, # [facility] [Tradjenta] 00 30 tab, 3 Refill(s) Linagliptin 2016- Yes 5 mg = 1 Me moria 5 MG Oral - tab, PO, l Tablet 22:13: Daily, # Luke [Tradjenta] 00 30 tab, 3 Refill(s) Linagliptin 2016-0 Yes 5 mg = 1 Me moria 5 MG Oral -26 tab, PO, l Tablet 22:13: Daily, # Luke [Tradjenta] 00 30 tab, 3 Refill(s) Acetaminoph Yes 2 tabs, Mem oria en 325 MG / - PO, Q6H, 0 l Hydrocodone 22:01: Refill(s) H ermann Bitartrate 00 10 MG Oral Tablet [[place] 10/325] Amlodipine Yes 10 mg, PO, M emoria 01-10 Daily, 0 l 22:01: Refill(s) Luke Acetaminoph Yes 2 tabs, Mem oria en 325 MG / -26 PO, Q6H, 0 l Hydrocodone 22:01: Refill(s) H ermann Bitartrate 00 10 MG Oral Tablet [[place] 10/325] Amlodipine Yes 10 mg, PO, M emoria 01-10 Daily, 0 l 22:01: Refill(s) Luke Acetaminoph Yes 2 tabs, Mem oria en 325 MG / -26 PO, Q6H, 0 l Hydrocodone 22:01: Refill(s) H ermann Bitartrate 00 10 MG Oral Tablet [[place] 10/325] Amlodipine Yes 10 mg, PO, M emoria 01-10 Daily, 0 l 22:01: Refill(s) [facility] Acetaminoph Yes 2 tabs, Mem oria en 325 MG / -26 PO, Q6H, 0 l Hydrocodone 22:01: Refill(s) H ermann Bitartrate 00 10 MG Oral Tablet [[place] 10/325] Amlodipine 0 Yes 10 mg, PO, M emoria 7- Daily, 0 l 22:01: Refill(s) [facility] Acetaminoph Yes 2 tabs, Mem oria en 325 MG / 7-26 PO, Q6H, 0 l Hydrocodone 22:01: Refill(s) H ermann Bitartrate 00 10 MG Oral Tablet [[place] 10/325] Amlodipine Yes 10 mg, PO, M emoria 01-10 Daily, 0 l 22:01: Refill(s) [facility] Acetaminoph Yes 2 tabs, Mem oria en 325 MG / 01-10 PO, Q6H, 0 l Hydrocodone 22:01: Refill(s) H ermann Bitartrate 00 10 MG Oral Tablet [[place] 10/325] Amlodipine Yes 10 mg, PO, M emoria 01-10 Daily, 0 l 22:01: Refill(s) Luke aspirin RX aspirin RX 2012-06 No aspirin RX Arlin by other MD by other MD 0-30 by other [facility] 00:00: [facility] aspirin RX aspirin RX 2012-06 No aspirin RX Arlin by other MD by other MD 0-30 by other [facility] 00:00: [facility] aspirin RX aspirin RX 2012-06 No aspirin RX Arlin by other MD by other MD 0-30 by other [facility] 00:00: [facility] aspirin RX aspirin RX 2012-06 No aspirin RX Arlin by other MD by other MD 0-30 by other [facility] 00:00: [facility] aspirin RX aspirin RX 2012-06 No aspirin RX Arlin by other MD by other MD 0-30 by other Orth[facility] 00:00: [facility] Pepcid 20 Yes Rigoberto 20 mg, 1 [...] Richard n 03 tab, Substituti on Allowed [place] Yes Rigoberto 1-2 tab, Memoria 10/325 oral 4-21 Skyler PO, Q4-6H, l tablet 13:43: Meiner PRN, 90 Richard n 05 tab, Pain, Substituti on Allowed, Maintenanc e [place] Yes Rigoberto 1-2 tab, Memoria 10/325 oral 4-21 [place] PO, Q4-6H, l tablet 13:43: Meiner PRN, 90 Richard n 05 tab, Pain, Substituti on Allowed, Maintenanc e [place] Yes Rigoberto 1-2 tab, Memoria 10/325 oral 4-21 [place] PO, Q4-6H, l tablet 13:43: Meiner PRN, 90 Richard n 05 tab, Pain, Substituti on Allowed, Maintenanc e [place] Yes Rigoberto 1-2 tab, Memoria 10/325 oral 4-21 [place] PO, Q4-6H, l tablet 13:43: Meiner PRN, 90 Richard n 05 tab, Pain, Substituti on Allowed, Maintenanc e [place] Yes Rigoberto 1-2 tab, Memoria 10/325 oral 4-21 [place] PO, Q4-6H, l tablet 13:43: Meiner PRN, 90 Richard n 05 tab, Pain, Substituti on Allowed, Maintenanc e [place] Yes Rigoberto 1-2 tab, Memoria 10/325 oral 4-21 [place] PO, Q4-6H, l tablet 13:43: Meiner PRN, 90 Richard n 05 tab, Pain, Substituti on Allowed, Maintenanc e Flexeril 10 Yes Rigoberto 10 mg, 1 Me moria mg oral 4-21 [place]yler tab, PO, l tablet 13:42: Meiner TID, PRN, Herm robert 53 30 tab, for spasm, Substituti on Allowed, TAB Flexeril 10 2012- Yes Rigoberto 10 mg, 1 Me moria [...] spasm, Substituti on Allowed, TAB Flexeril 10 2012- Yes Rigoberto 10 mg, 1 Me moria mg oral 4-21 [place]yler tab, PO, l tablet 13:42: Meiner TID, PRN, Herm robert 53 30 tab, for spasm, Substituti on Allowed, TAB Medrol 2012- Yes Rigoberto As Memoria Dosepak 4 4-21 Skyler directed l mg Tablet 13:42: Meiner on package Luke 51 instructio ns, PO, Daily, Take with or without food, 1 Pack, Substituti on AllowedTak e with or without food Medrol 2012-0 Yes Rigoberto As Memoria Dosepak 4 4-21 [place]yler directed l mg Tablet 13:42: Meiner on package Seminary 51 instructio ns, PO, Daily, Take with or without food, 1 Pack, Substituti on AllowedTak e with or without food Medrol 2012-0 Yes Rigoberto As Memoria Dosepak 4 4-21 [place]yler directed l mg Tablet 13:42: Meiner on package Seminary 51 instructio ns, PO, Daily, Take with or without food, 1 Pack, Substituti on AllowedTak e with or without food Medrol 2012-0 Yes Rigoberto As Memoria Dosepak 4 -21 Skyelr directed l mg Tablet 13:42: Meiner on package Luke 51 instructio ns, PO, Daily, Take with or without food, 1 Pack, Substituti on AllowedTak e with or without food Medrol 2012- Yes Rigoberto As Memoria Dosepak 4 - Skyler directed l mg Tablet 13:42: Meiner on package Seminary 51 instructio ns, PO, Daily, Take with or without food, 1 Pack, Substituti on AllowedTak e with or without food Medrol 2012- Yes Rigoberto As Memoria Dosepak 4 - Skyler directed l mg Tablet 13:42: Meiner on package Luke 51 instructio ns, PO, Daily, Take with or without food, 1 Pack, Substituti on AllowedTak e with or without food Colace 100 2012- Yes Rigoberto 100 mg, 1 Me moria mg oral - Skyler cap, PO, l capsule 13:42: Meiner BID, PRN, Her kowalski 48 20 cap, Constipati on, Substituti on Allowed, CAP Colace 100 2012-0 Yes Rigoberto 100 mg, 1 Me moria mg oral - [place]yler cap, PO, l capsule 13:42: Meiner BID, PRN, Her kowalski 48 20 cap, Constipati on, Substituti on Allowed, CAP Colace 100 2012- Yes Rigoberto 100 mg, 1 Me moria mg oral - [place]yler cap, PO, l capsule 13:42: Meiner BID, PRN, Her kowalski 48 20 cap, Constipati on, Substituti on Allowed, CAP Colace 100 2012-0 Yes Rigoberto 100 mg, 1 Me moria mg oral -21 [place]yler cap, PO, l capsule 13:42: Meiner BID, PRN, Her kowalski 48 20 cap, Constipati on, Substituti on Allowed, CAP Colace 100 2012- Yes Rigoberto 100 mg, 1 Me moria mg oral - [place]yler cap, PO, l capsule 13:42: Meiner BID, PRN, Her kowalski 48 20 cap, Constipati on, Substituti on Allowed, CAP Colace 100 2012-0 Yes Rigoberto 100 mg, 1 Me moria mg oral 4-21 [place]yler cap, PO, l capsule 13:42: Meiner BID, PRN, Her kowalski 48 20 cap, Constipati on, Substituti on Allowed, CAP diphenhydrA 2012-0 No Bob 25 mg, 1 Memoria MINE 25 mg 4-21 Rodgers cap, l oral 01:00: Reji Route: PO, Richard n tablet, 00 Drug form: disintegrat CAP, Q8H, ing Dosing Weight 91.818, kg, PRN Anxiety, Start date: 10/05/12 20:00:00, Duration: 30 day, Stop date: 11/04/12 19:59:00 diphenhydrA 2012-0 No Bob 25 mg, 1 Memoria MINE 25 mg 4-21 Rodgers cap, l oral 01:00: Reji Route: PO, Richard n tablet, 00 Drug form: disintegrat CAP, Q8H, ing Dosing Weight 91.818, kg, PRN Anxiety, Start date: 10/05/12 20:00:00, Duration: 30 day, Stop date: 11/04/12 19:59:00 diphenhydrA 2012-0 No Bob 25 mg, 1 Memoria MINE 25 mg 4-21 Rodgers cap, l oral 01:00: Reji Route: PO, Richard n tablet, 00 Drug form: disintegrat CAP, Q8H, ing Dosing Weight 91.818, kg, PRN Anxiety, Start date: 10/05/12 20:00:00, Duration: 30 day, Stop date: 11/04/12 19:59:00 diphenhydrA 2012-0 No Bob 25 mg, 1 Memoria MINE 25 mg 4-21 Rodgers cap, l oral 01:00: Reji Route: PO, Richard n tablet, 00 Drug form: disintegrat CAP, Q8H, ing Dosing Weight 91.818, kg, PRN Anxiety, Start date: 10/05/12 20:00:00, Duration: 30 day, Stop date: 11/04/12 19:59:00 diphenhydrA 2012-0 No Bob 25 mg, 1 Memoria MINE [...] 30 day, Stop date: 11/04/12 19:59:00 Lantus 2012-0 No Estela 10 unit, Memor ia 4-20 Young 0.1 mL, l 23:46: Route: [facility] 00 SUB-Q, Drug form: INJ, ONCE, Dosing Weight 91.818, kg, Start date: 10/05/12 18:46:00, Stop date: 10/05/12 18:46:00 Lantus 2012-0 No Estela 10 unit, Memor ia 4-20 Young 0.1 mL, l 23:46: Route: Luke SUB-Q, Drug form: INJ, ONCE, Dosing Weight 91.818, kg, Start date: 10/05/12 18:46:00, Stop date: 10/05/12 18:46:00 Lantus 2012-0 No Estela 10 unit, Memor ia 4-20 Young 0.1 mL, l 23:46: Route: Luke 00 SUB-Q, Drug form: INJ, ONCE, Dosing Weight 91.818, kg, Start date: 10/05/12 18:46:00, Stop date: 10/05/12 18:46:00 Lantus 2012-0 No Estela 10 unit, Memor ia 4-20 Young 0.1 mL, l 23:46: Route: [facility] 00 SUB-Q, Drug form: INJ, ONCE, Dosing Weight 91.818, kg, Start date: 10/05/12 18:46:00, Stop date: 10/05/12 18:46:00 Lantus 2012-0 No Estela 10 unit, Memor ia 4-20 Young 0.1 mL, l 23:46: Route: Luke 00 SUB-Q, Drug form: INJ, ONCE, Dosing Weight 91.818, kg, Start date: 10/05/12 18:46:00, Stop date: 10/05/12 18:46:00 Lantus 2012-0 No Estela 10 unit, Memor ia 4-20 Young 0.1 mL, l 23:46: Route: Luke 00 SUB-Q, Drug form: INJ, ONCE, Dosing Weight 91.818, kg, Start date: 10/05/12 18:46:00, Stop date: 10/05/12 18:46:00 insulin 2012-0 No Estela 3 unit, Memor [...] 4-20 Young 25 mL, l 22:13: Route: [facility] 00 IVP, Drug Form: INJ, Dosing Weight [...] Young Route: IM, l 22:13: Drug form: [facility] 00 PDR/INJ, PRN, Dosing Weight 91.818, kg, PRN Blood Glucose Results, Start date: 10/05/12 17:13:00, Duration: 30 day, Stop date: 11/04/12 17:12:00 Dextrose 2012-0 No Estela 12.5 gm, Mem oria 50% Syringe 4-20 Young 25 mL, l 22:13: Route: [facility] 00 IVP, Drug Form: INJ, Dosing Weight [...] Young Route: IM, l 22:13: Drug form: [facility] 00 PDR/INJ, PRN, Dosing Weight 91.818, kg, [...] 4-20 Young 0.03 mL, l 22:13: Route: [facility] 00 SUB-Q, Drug form: SOLN, TID-Before Meals, [...] 4-20 Young 25 mL, l 22:13: Route: [facility] 00 IVP, Drug Form: INJ, Dosing Weight 91.818, kg, PRN, PRN Blood Glucose Results, Start date: 10/05/12 17:13:00, Duration: 30 day, Stop date: 11/04/12 17:12:00 insulin 2012-0 No Estela 3 unit, Memor ia aspart 4-20 Young 0.03 mL, l 22:13: Route: [facility] 00 SUB-Q, Drug form: SOLN, TID-Before Meals, Dosing Weight 91.818, kg, PRN Blood Glucose Results, Start date: 10/05/12 17:13:00, Duration: 30 day, Stop date: 11/04/12 17:12:00 glucagon 2012-0 No Estela 1 mg, Memori a 4-20 Young Route: IM, l 22:13: Drug form: [facility] 00 PDR/INJ, PRN, Dosing Weight 91.818, kg, PRN Blood Glucose Results, Start date: 10/05/12 17:13:00, Duration: 30 day, Stop date: 11/04/12 17:12:00 Dextrose 2012-0 No Estela 12.5 gm, Mem oria 50% Syringe 4-20 Young 25 mL, l 22:13: Route: [facility] 00 IVP, Drug Form: INJ, Dosing Weight [...] Young Route: IM, l 22:13: Drug form: [facility] 00 PDR/INJ, PRN, Dosing Weight 91.818, kg, [...] 4-20 Young 0.05 mL, l 16:30: Route: Luke 00 SUB-Q, Drug form: SOLN, TID-Before Meals, Dosing Weight 91.818, kg, Start date: 10/05/12 11:30:00, Duration: 30 day, Stop date: 11/04/12 7:30:00 insulin 2012-0 No Estela 5 unit, Memor ia aspart 4-20 Young 0.05 mL, l 16:30: Route: Luke 00 SUB-Q, Drug form: SOLN, TID-Before Meals, Dosing Weight 91.818, kg, Start date: 10/05/12 11:30:00, Duration: 30 day, Stop date: 11/04/12 7:30:00 insulin 2013-0 No Estela 5 unit, Memor ia aspart 4-20 Young 0.05 mL, l 16:30: Route: Sem[facility] 00 SUB-Q, Drug form: SOLN, TID-Before Meals, Dosing Weight 91.818, kg, Start date: 10/05/12 11:30:00, Duration: 30 day, Stop date: 11/04/12 7:30:00 insulin 2013-0 No Estela 5 unit, Memor ia aspart 4-20 Young 0.05 mL, l 16:30: Route: [facility] 00 SUB-Q, Drug form: SOLN, TID-Before Meals, Dosing Weight 91.818, kg, Start date: 10/05/12 11:30:00, Duration: 30 day, Stop date: 11/04/12 7:30:00 insulin 2012-0 No Estela 5 unit, Memor ia aspart 4-20 Young 0.05 mL, l 16:30: Route: [facility] 00 SUB-Q, Drug form: SOLN, TID-Before Meals, Dosing Weight 91.818, kg, Start date: 10/05/12 11:30:00, Duration: 30 day, Stop date: 11/04/12 7:30:00 insulin 2013-0 No Estela 5 unit, Memor ia aspart 4-20 Young 0.05 mL, l 16:30: Route: Luke 00 SUB-Q, Drug form: SOLN, TID-Before Meals, Dosing Weight 91.818, kg, Start date: 10/05/12 11:30:00, Duration: 30 day, Stop date: 11/04/12 7:30:00 Ativan 2012-0 No Rigoberto 1 mg, 1 Memoria 4-20 Skyler tab, l 15:38: [place] Route: PO, Anitra nn 00 Drug form: [...] 10/05/12 4:41:00, Stop date: 11/04/12 4:40:00 Valium 2012-0 No Dorothy 5 mg, 1 Memori a 4-20 Dionisio tab, l 09:41: Route: PO, Drug form: TAB, ONCE, Dosing Weight 91.818, kg, PRN Anxiety, Start date: 10/05/12 4:41:00, Stop date: 11/04/12 4:40:00 Valium 2012-0 No Dorothy 5 mg, 1 Memori a 4-20 Dionisio tab, l 09:41: Route: PO, Drug form: TAB, ONCE, Dosing Weight 91.818, kg, PRN Anxiety, Start date: 10/05/12 4:41:00, Stop date: 11/04/12 4:40:00 Valium 2012-0 No Dorothy 5 mg, 1 Memori a 4-20 Dionisio tab, l 09:41: Route: PO, Drug form: TAB, ONCE, Dosing Weight 91.818, kg, PRN Anxiety, Start date: 10/05/12 4:41:00, Stop date: 11/04/12 4:40:00 Valium 2012-0 No Dorothy 5 mg, 1 Memori a 4-20 Dionisio tab, l 09:41: Route: PO, Drug form: TAB, ONCE, Dosing Weight 91.818, kg, PRN Anxiety, Start date: 10/05/12 4:41:00, Stop date: 11/04/12 4:40:00 Valium 2012-0 No Dorothy 5 mg, 1 Memori a 4-20 Dionisio tab, l 09:41: Route: PO, Drug form: TAB, ONCE, Dosing Weight [...] Dionisio mL, Route: l 05:00: IVP, Drug Seminary 00 form: INJ, Q6H, Dosing Weight 91.818, kg, Start date: 10/05/12 0:00:00, Duration: 30 day, Stop date: 11/03/12 18:00:00 heparin 2012-0 No Kathryn 5,000 Mem oria 4-20 n Deniz unit, 1 l 05:00: mL, Route: Luke 00 SUB-Q, Drug form: INJ, Q8H, Dosing Weight 91.818, kg, Start date: 10/05/12 0:00:00, Duration: 30 day, Stop date: 11/03/12 16:00:00 dexamethaso 2012-0 No Dorothy 4 mg, 1 M emoria ne 4-20 Dionisio mL, Route: l 05:00: IVP, Drug Sem[facility] 00 form: INJ, Q6H, Dosing Weight 91.818, kg, Start date: 10/05/12 0:00:00, Duration: 30 day, Stop date: 11/03/12 18:00:00 heparin 2012-0 No Kathryn 5,000 Mem oria 4-20 n Deniz unit, 1 l 05:00: mL, Route: Luke 00 SUB-Q, Drug form: INJ, Q8H, Dosing Weight 91.818, kg, Start date: 10/05/12 0:00:00, Duration: 30 day, Stop date: 11/03/12 16:00:00 dexamethaso 2012-0 No Dorothy 4 mg, 1 M emoria ne 4-20 Dionisio mL, Route: l 05:00: IVP, Drug Sem[facility] 00 form: INJ, Q6H, Dosing Weight 91.818, [...] Deniz unit, 1 l 05:00: mL, Route: Sem[facility] 00 SUB-Q, Drug form: INJ, Q8H, Dosing [...] Deniz unit, 1 l 05:00: mL, Route: [facility] 00 SUB-Q, Drug form: INJ, Q8H, Dosing Weight 91.818, kg, Start date: 10/05/12 0:00:00, Duration: 30 day, Stop date: 11/03/12 16:00:00 famotidine 2012-0 No Dorothy 20 mg, 1 M emoria 4-20 Dionisio tab, l 02:00: Route: PO, Seminary 00 Drug form: TAB, BID, Dosing Weight 91.818, kg, Start date: 10/04/12 21:00:00, Duration: 30 day, Stop date: 11/03/12 9:00:00 famotidine 2013-0 No Dorothy 20 mg, 1 M emoria 4-20 Dionisio tab, l 02:00: Route: PO, Drug form: TAB, BID, Dosing Weight 91.818, kg, Start date: 10/04/12 21:00:00, Duration: 30 day, Stop date: 11/03/12 9:00:00 famotidine 2013-0 No Dorothy 20 mg, 1 M emoria 4-20 Dionisio tab, l 02:00: Route: PO, Drug form: TAB, BID, Dosing Weight 91.818, kg, Start date: 10/04/12 21:00:00, Duration: 30 day, Stop date: 11/03/12 9:00:00 famotidine 2013-0 No Dorothy 20 mg, 1 M emoria 4-20 Dionisio tab, l 02:00: Route: PO, Drug form: TAB, BID, Dosing Weight 91.818, kg, Start date: 10/04/12 21:00:00, Duration: 30 day, Stop date: 11/03/12 9:00:00 famotidine 2013-0 No Dorothy 20 mg, 1 M emoria 4-20 Dionisio tab, l 02:00: Route: PO, Drug form: TAB, BID, Dosing Weight 91.818, kg, Start date: 10/04/12 21:00:00, Duration: 30 day, Stop date: 11/03/12 9:00:00 famotidine 2013-0 No Dorothy 20 mg, 1 M emoria 4-20 Dionisio tab, l 02:00: Route: PO, Drug form: TAB, BID, Dosing Weight 91.818, kg, Start date: 10/04/12 21:00:00, Duration: 30 day, Stop date: 11/03/12 9:00:00 Insulin 2013-0 No Estela 12 unit, Boy tadeo regular 4-20 Young 0.12 mL, l 00:54: Route: Seminary 00 SUB-Q, Drug form: SOLN, TID-Before Meals, [...] mL, Route: l 00:54: Grazyna IVP, Drug Seminary 00 Law Form: INJ, Dosing Weight 91.818, kg, PRN, PRN Blood Glucose Results, Start date: 10/04/12 19:54:00, Duration: 30 day, Stop date: 11/03/12 19:53:00 Insulin 2012-0 No Estela 12 unit, Boy tadeo regular 4-20 Young 0.12 mL, l 00:54: Route: Luke SUB-Q, Drug form: SOLN, TID-Before [...] mL, Route: l 00:54: Grazyna IVP, Drug Seminary Law Form: INJ, Dosing Weight 91.818, kg, PRN, PRN Blood Glucose Results, Start date: 10/04/12 19:54:00, Duration: 30 day, Stop date: 11/03/12 19:53:00 Insulin 2012-0 No Estela 12 unit, Boy tadeo regular 4-20 Young 0.12 mL, l 00:54: Route: Seminary 00 SUB-Q, Drug form: SOLN, TID-Before Meals, [...] mL, Route: l 00:54: Grazyna IVP, Drug Seminary 00 Law Form: INJ, Dosing Weight 91.818, [...] 4-20 Young 0.12 mL, l 00:54: Route: [facility] 00 SUB-Q, Drug form: SOLN, TID-Before Meals, [...] mL, Route: l 00:54: Grazyna IVP, Drug [facility] 00 Law Form: INJ, Dosing Weight 91.818, [...] 30 day, Stop date: 11/03/12 19:53:00 Dextrose 2013-0 No Petra 25 gm, 50 Memoria 50% Syringe 4-20 Carmen mL, Route: l 00:54: Grazyna IVP, Drug [facility] 00 Law Form: INJ, Dosing Weight 91.818, [...] 10/04/12 19:14:00, Stop date: 10/04/12 19:14:00 dexamethaso 2013-0 No Dorothy 10 mg, 1 Memoria ne + Sodium 4-20 Dionisio mL, Route: l Chloride 00:14: IVP, Drug Herm robert 0.9% IV 50 00 form: INJ, mL ONCE, Dosing Weight 91.818, kg, Start date: 10/04/12 19:14:00, Stop date: 10/04/12 19:14:00 dexamethaso 2013-0 No Dorothy 10 mg, 1 Memoria ne + Sodium 4-20 Dionisio mL, Route: l Chloride 00:14: IVP, Drug Herm robert 0.9% IV 50 00 form: INJ, mL ONCE, Dosing Weight 91.818, kg, Start date: 10/04/12 19:14:00, Stop date: 10/04/12 19:14:00 dexamethaso 2013-0 No Dorothy 10 mg, 1 Memoria ne + Sodium 4-20 Dionisio mL, Route: l Chloride 00:14: IVP, Drug Herm robert 0.9% IV 50 00 form: INJ, mL ONCE, Dosing Weight 91.818, kg, Start date: 10/04/12 19:14:00, Stop date: 10/04/12 19:14:00 dexamethaso 2013-0 No Dorothy 10 mg, 1 Memoria ne + Sodium 4-20 Dionisio mL, Route: l Chloride 00:14: IVP, Drug Herm robert 0.9% IV 50 00 form: INJ, mL ONCE, Dosing Weight 91.818, kg, Start date: 10/04/12 19:14:00, Stop date: 10/04/12 19:14:00 dexamethaso 2013-0 No Dorothy 10 mg, 1 Memoria ne + Sodium 4-20 Dionisio mL, Route: l Chloride 00:14: IVP, Drug Herm robert 0.9% IV 50 00 form: INJ, mL ONCE, Dosing Weight 91.818, kg, Start date: 10/04/12 19:14:00, Stop date: 10/04/12 19:14:00 magnesium 2013-0 No Estela 2 gm, 50 Me moria sulfate 4-19 Young mL, Route: l 21:00: IVPB, Drug [facility] 00 form: INJ, Q2H, Dosing Weight 91.818, kg, Total dose = 4 gm, Start date: 10/04/12 16:00:00, Duration: 2 doses or times, Stop date: 10/04/12 18:00:00 magnesium 2013-0 No Estela 2 gm, 50 Me moria sulfate 4-19 Young mL, Route: l 21:00: IVPB, Drug Luke 00 form: INJ, Q2H, Dosing Weight 91.818, kg, Total dose = 4 gm, Start date: 10/04/12 16:00:00, Duration: 2 doses or times, Stop date: 10/04/12 18:00:00 magnesium 2013-0 No Estela 2 gm, 50 Me moria sulfate 4-19 Young mL, Route: l 21:00: IVPB, Drug [facility] 00 form: INJ, Q2H, Dosing Weight 91.818, kg, Total dose = 4 gm, Start date: 10/04/12 16:00:00, Duration: 2 doses or times, Stop date: 10/04/12 18:00:00 magnesium 2013-0 No Estela 2 gm, 50 Me moria sulfate 4-19 Young mL, Route: l 21:00: IVPB, Drug [facility] 00 form: INJ, Q2H, Dosing Weight 91.818, kg, Total dose = 4 gm, Start date: 10/04/12 16:00:00, Duration: 2 doses or times, Stop date: 10/04/12 18:00:00 magnesium 2012-0 No Estela 2 gm, 50 Me moria sulfate 4-19 Young mL, Route: l 21:00: IVPB, Drug [facility] 00 form: INJ, Q2H, Dosing Weight 91.818, kg, Total dose = 4 gm, Start date: 10/04/12 16:00:00, Duration: 2 doses or times, Stop date: 10/04/12 18:00:00 magnesium 2012-0 No Estela 2 gm, 50 Me moria sulfate 4-19 Young mL, Route: l 21:00: IVPB, Drug [facility] 00 form: INJ, Q2H, Dosing Weight 91.818, kg, Total dose = 4 gm, Start date: 10/04/12 16:00:00, Duration: 2 doses or times, Stop date: 10/04/12 18:00:00 Ativan No Maisha L 1 mg, 0.5 M emoria 4-19 Michael mL, Route: l 16:52: IVP, Drug [facility] 00 form: INJ, ONCE, Dosing Weight 91.818, kg, PRN Anxiety, Start date: 10/04/12 11:52:00 acetaminoph 2012- No Maisha L 1 tab, Memoria en-hydrocod -19 Michael Route: PO, l one 325 16:52: [...] 30 day, Stop date: 11/03/12 11:51:00 Ativan No Maisha L 1 mg, 0.5 [...] 30 day, Stop date: 11/03/12 11:51:00 Ativan No Maisha L 1 mg, 0.5 M emoria 4-19 Michael mL, Route: l 16:52: IVP, Drug [facility] 00 form: INJ, ONCE, Dosing Weight 91.818, kg, PRN Anxiety, Start date: 10/04/12 11:52:00 acetaminoph No Maisha L 1 tab, Memoria en-hydrocod 4-19 Michael Route: PO, l one 325 16:52: Drug Form: Herm robert mg-10 mg 00 TAB, oral tablet Dosing Weight 91.818, kg, Q4H, PRN Pain Score 4-6, Start date: 10/04/12 11:52:00, Duration: 30 day, Stop date: 11/03/12 11:51:00 Ativan No Maisha L 1 mg, 0.5 [...] 30 day, Stop date: 11/03/12 11:51:00 Ativan 2012- No Maisha L 1 mg, 0.5 M emoria - Michael mL, Route: l 16:52: IVP, Drug [facility] 00 form: INJ, ONCE, Dosing Weight 91.818, kg, PRN Anxiety, Start date: 10/04/12 11:52:00 acetaminoph No Maisha L 1 tab, Memoria en-hydrocod - Michael Route: PO, l one 325 16:52: Drug Form: Herm robert mg-10 mg 00 TAB, oral tablet Dosing Weight 91.818, kg, Q4H, PRN Pain Score 4-6, Start date: 10/04/12 11:52:00, Duration: 30 day, Stop date: 11/03/12 11:51:00 hydrochloro No Leah Yen 25 mg, M emoria thiazide - Thi Mabry Route: PO, l 14:00: Drug form: [facility] 00 TAB, Daily, Dosing Weight 91.818, kg, Start date: 10/04/12 9:00:00, Duration: 30 day, Stop date: 11/02/12 9:00:00 Januvia 2012- No [facility] 100 mg, 1 Memoria -19 n Deniz tab, l 14:00: Route: PO, [facility] 00 Drug form: TAB, Daily, Dosing Weight 91.818, kg, Start date: 10/04/12 9:00:00, Duration: 30 day, Stop date: 11/02/12 9:00:00 amLODipine 2013-0 No [facility] 10 mg, 1 Memoria 4-19 [...] 4-19 Young 0.3 mL, l 14:00: Route: [facility] 00 SUB-Q, Drug form: INJ, Daily, Dosing Weight 91.818, kg, Start date: 10/04/12 9:00:00, Stop date: 11/02/12 9:00:00 polyethylen 2012-0 No [facility] 17 gm, 1 Memoria e glycol 4-19 n Deniz pkt, l 3350 14:00: Route: PO, [facility] 00 Drug form: PWDR, Daily, Dosing Weight 91.818, kg, Start date: 10/04/12 9:00:00, Duration: 30 day, Stop date: 11/02/12 9:00:00 hydrochloro 2012-0 No Leah Yen 25 mg, M kristine thiazide 4-19 Thi Mabry Route: PO, l [...] 2012-0 No Leah Yen 25 mg, M harikaria thiazide 4-19 Thi Mabry Route: PO, l [...] 30 day, Stop date: 11/02/12 9:00:00 amLODipine 2012- No [facility] 10 mg, 1 Memoria 4-19 n Deniz tab, l 14:00: Route: PO, [facility] 00 Drug form: TAB, Daily, Dosing Weight 91.818, kg, Start date: 10/04/12 9:00:00, Duration: 30 day, Stop date: 11/02/12 9:00:00 Lantus 2012-0 No Estela 30 unit, Memor ia 4-19 Young 0.3 mL, l 14:00: Route: [facility] 00 SUB-Q, Drug form: INJ, Daily, Dosing Weight 91.818, kg, Start date: 10/04/12 9:00:00, Stop date: 11/02/12 9:00:00 polyethylen 2012- No [facility] 17 gm, 1 Memoria e glycol 4-19 n Deniz pkt, l 3350 14:00: Route: PO, [facility] 00 Drug form: PWDR, Daily, Dosing Weight 91.818, kg, Start date: 10/04/12 9:00:00, Duration: 30 day, Stop date: 11/02/12 9:00:00 Zofran 4 mg Yes [facility] 4 mg, 1 Memoria oral tablet 4-19 n Deniz tab, PO, l 13:02: Q8H, 30 [facility] 06 tab, Substituti on Allowed Zofran 4 mg 2012- Yes [facility] 4 mg, 1 Memoria oral tablet 4-19 n Deniz tab, PO, l 13:02: Q8H, 30 [facility] 06 tab, Substituti on Allowed Zofran 4 mg Yes [facility] 4 mg, 1 Memoria oral tablet 4-19 n Deniz tab, PO, l 13:02: Q8H, 30 [facility] 06 tab, Substituti on Allowed Zofran 4 mg Yes [facility] 4 mg, 1 Memoria oral tablet 4-19 n Deniz tab, PO, l 13:02: Q8H, 30 Luke 06 tab, Substituti on Allowed Zofran 4 mg Yes [facility] 4 mg, 1 Memoria oral tablet 4-19 n Deniz tab, PO, l 13:02: Q8H, 30 [facility] 06 tab, Substituti on Allowed Zofran 4 mg Yes [facility] 4 mg, 1 Memoria oral tablet 4-19 n Deniz tab, PO, l 13:02: Q8H, 30 [facility] 06 tab, Substituti on Allowed docusate Yes [...] PO, Q6H, l tablet 13:00: PRN, 112 [facility] 09 tab, Pain, Substituti on Allowed, TAB tramadol 50 Yes [facility] 1 - 2 tab, Memoria mg oral 4-19 n Deniz PO, Q6H, l tablet 13:00: PRN, 112 [facility] 09 tab, Pain, Substituti on Allowed, TAB tramadol 50 Yes [facility] 1 - 2 tab, Memoria mg oral 4-19 n Deniz PO, Q6H, l tablet 13:00: PRN, 112 [facility] 09 tab, Pain, Substituti on Allowed, TAB tramadol 50 Yes [facility] 1 - 2 tab, Memoria mg oral 4-19 n Deniz PO, Q6H, l tablet 13:00: PRN, 112 Luke 09 tab, Pain, Substituti on Allowed, TAB tramadol 50 Yes [facility] 1 - 2 tab, Memoria mg oral 4-19 n Deniz PO, Q6H, l tablet 13:00: PRN, 112 [facility] 09 tab, Pain, Substituti on Allowed, TAB [...] oral tablet 13:00: TID, PRN, H ermann tab, Spasm, Substituti on Allowed, TAB olmesartan [...] 30 day, Stop date: 11/03/12 7:56:00 Dilaudid No [facility] 0.3 mg, Memoria 4-19 n Deniz 0.15 mL, l 12:57: Route: IV, Drug form: INJ, Q3H, Dosing Weight 91.818, kg, PRN Pain Score 7-10, Start date: 10/04/12 7:57:00, Duration: 30 day, Stop date: 11/03/12 7:56:00 Dilaudid No [facility] 0.3 mg, Memoria 4-19 n Deniz 0.15 mL, l 12:57: Route: IV, Drug form: INJ, Q3H, Dosing Weight 91.818, kg, PRN Pain Score 7-10, Start date: 10/04/12 7:57:00, Duration: 30 day, Stop date: 11/03/12 7:56:00 Dilaudid No [facility] 0.3 mg, Memoria 4-19 n Deniz 0.15 mL, l 12:57: Route: IV, Drug form: INJ, Q3H, Dosing Weight 91.818, kg, PRN Pain Score 7-10, Start date: 10/04/12 7:57:00, Duration: 30 day, Stop date: 11/03/12 7:56:00 Dilaudid No [facility] 0.3 mg, Memoria 4-19 n Deniz 0.15 mL, l 12:57: Route: IV, Drug form: INJ, Q3H, Dosing Weight 91.818, kg, PRN Pain Score 7-10, Start date: 10/04/12 7:57:00, Duration: 30 day, Stop date: 11/03/12 7:56:00 Dilaudid 2012-0 No [facility] 0.3 mg, Memoria 10-04 n Deniz 0.15 mL, l 12:57: Route: IV, [facility] 00 Drug form: INJ, Q3H, Dosing Weight 91.818, kg, PRN Pain Score 7-10, Start date: 10/04/12 7:57:00, Duration: 30 day, Stop date: 11/03/12 7:56:00 Benadryl 0 No Jui-En 25 mg, 0.5 M emoria 4-19 Edward Kelly mL, Route: l 08:22: IVP, Drug Luke 00 form: INJ, ONCE, Dosing Weight 91.818, kg, PRN Insomnia, Start date: 10/04/12 3:22:00 Benadryl 0 No Jui-En 25 mg, 0.5 M emoria 10-04 Edward Kelly mL, Route: l 08:22: IVP, Drug [facility] 00 form: INJ, ONCE, Dosing Weight 91.818, kg, PRN Insomnia, Start date: 10/04/12 3:22:00 Benadryl 2012-0 No Jui-En 25 mg, 0.5 M emoria 4-19 Edward Kelly mL, Route: l 08:22: IVP, Drug Luke 00 form: INJ, ONCE, Dosing Weight 91.818, kg, PRN Insomnia, Start date: 10/04/12 3:22:00 Benadryl 2012-0 No Jui-En 25 mg, 0.5 M emoria 4-19 Edward Kelly mL, Route: l 08:22: IVP, Drug Luke 00 form: INJ, ONCE, Dosing Weight 91.818, kg, PRN Insomnia, Start date: 10/04/12 3:22:00 Benadryl 2012-0 No Jui-En 25 mg, 0.5 M emoria 4-19 Edward Kelly mL, Route: l 08:22: IVP, Drug Luke 00 form: INJ, ONCE, Dosing Weight 91.818, kg, PRN Insomnia, Start date: 10/04/12 3:22:00 Benadryl 2012-0 No Jui-En 25 mg, 0.5 M emoria 4-19 Edward Kelly mL, Route: l 08:22: IVP, Drug Luke 00 form: INJ, ONCE, Dosing Weight 91.818, kg, PRN Insomnia, Start date: 10/04/12 3:22:00 labetalol 0 No Estela 10 mg, 2 Me moria 4-19 Young mL, Route: l 08:05: IVP, Drug [facility] 00 form: INJ, Q15Min, Dosing Weight 91.818, kg, PRN Hypertensi on, Start date: 10/04/12 3:05:00, Duration: 30 day, Stop date: 11/03/12 3:04:00 labetalol 2012-0 No Estela 10 mg, 2 Me moria 4-19 Young mL, Route: l 08:05: IVP, Drug [facility] 00 form: INJ, Q15Min, Dosing Weight 91.818, [...] Young mL, Route: l 08:05: IVP, Drug [facility] 00 form: INJ, Q15Min, Dosing Weight 91.818, kg, PRN Hypertensi on, Start date: 10/04/12 3:05:00, Duration: 30 day, Stop date: 11/03/12 3:04:00 labetalol 2012-0 No Estela 10 mg, 2 Me moria 4-19 Young mL, Route: l 08:05: IVP, Drug Luke form: INJ, Q15Min, Dosing Weight 91.818, kg, PRN Hypertensi on, Start date: 10/04/12 3:05:00, Duration: 30 day, Stop date: 11/03/12 3:04:00 labetalol 2012-0 No Estela 10 mg, 2 Me moria 4-19 Young mL, Route: l 08:05: IVP, Drug [facility] form: INJ, Q15Min, Dosing Weight 91.818, kg, PRN Hypertensi on, Start date: 10/04/12 3:05:00, Duration: 30 day, Stop date: 11/03/12 3:04:00 hydrALAZINE 2012- No [facility] 10 mg, 0.5 Memoria 4-19 n Deniz mL, Route: l 05:16: IV, Drug Luke 00 form: INJ, Q6H, Dosing Weight 91.818, kg, PRN Elevated BP, Start date: 10/04/12 0:16:00, Duration: 30 day, Stop date: 11/03/12 0:15:00 hydrALAZINE 2012-0 No [facility] 10 mg, 0.5 Memoria 4-19 n Deniz mL, Route: l 05:16: IV, Drug [facility] 00 form: INJ, Q6H, Dosing Weight 91.818, kg, PRN Elevated BP, Start date: 10/04/12 0:16:00, Duration: 30 day, Stop date: 11/03/12 0:15:00 hydrALAZINE 2012-0 No [facility] 10 mg, 0.5 Memoria 4-19 n Deniz mL, Route: l 05:16: IV, Drug Luke 00 form: INJ, Q6H, Dosing Weight 91.818, kg, PRN Elevated BP, Start date: 10/04/12 0:16:00, Duration: 30 day, Stop date: 11/03/12 0:15:00 hydrALAZINE 2012-0 No [facility] 10 mg, 0.5 Memoria 4-19 n Deniz mL, Route: l 05:16: IV, Drug [facility] 00 form: INJ, Q6H, Dosing Weight 91.818, kg, PRN Elevated BP, Start date: 10/04/12 0:16:00, Duration: 30 day, Stop date: 11/03/12 0:15:00 hydrALAZINE 2012-0 No [facility] 10 mg, 0.5 Memoria 4-19 n Deniz mL, Route: l 05:16: IV, Drug Luke 00 form: INJ, Q6H, Dosing Weight 91.818, kg, PRN Elevated BP, Start date: 10/04/12 0:16:00, Duration: 30 day, Stop date: 11/03/12 0:15:00 hydrALAZINE 2012-0 No [facility] 10 mg, 0.5 Memoria 4-19 n Deniz mL, Route: l 05:16: IV, Drug Luke 00 form: INJ, Q6H, Dosing Weight 91.818, kg, PRN Elevated BP, Start date: 10/04/12 0:16:00, Duration: 30 day, Stop date: 11/03/12 0:15:00 clonidine 2012-0 No Estela 0.1 mg, 1 [...] 4-19 Young tab, l 02:00: Route: PO, [facility] 00 Drug form: TAB, Q12H, Dosing Weight [...] 4-19 Young tab, l 02:00: Route: PO, [facility] 00 Drug form: TAB, Q12H, Dosing Weight 91.818, kg, Start date: 10/03/12 21:00:00, Stop date: 11/02/12 9:00:00 Saline 2012-0 No [facility] 5 ml, Boy tadeo Flush 0.9% 10-04 donna Guaman Route: l 02:00: IVP, Drug [...] 4-19 Young tab, l 02:00: Route: PO, [facility] 00 Drug form: TAB, Q12H, Dosing Weight [...] donna Guaman cap, l 02:00: Route: PO, Luke 00 [...] donna Guaman cap, l 02:00: Route: PO, Luke 00 Drug form: CAP, Q12H, Dosing Weight 91.818, kg, Start date: 10/03/12 21:00:00, Duration: 30 day, Stop date: 11/02/12 9:00:00 senna 2012-0 No [facility] 8.6 mg, 1 M emoria 4-19 donna Deniz tab, l 02:00: Route: PO, Luke 00 Drug Form: TAB, Dosing Weight 91.818, kg, Q12H, Start date: 10/03/12 21:00:00, Duration: 30 day, Stop date: 11/02/12 9:00:00 carvedilol 2012-0 No Estela 12.5 mg, 1 Memoria 4-19 Young tab, l 02:00: Route: PO, [facility] 00 Drug form: TAB, Q12H, Dosing Weight [...] donna Guaman cap, l 02:00: Route: PO, Luke 00 Drug form: CAP, Q12H, Dosing Weight 91.818, kg, Start date: 10/03/12 21:00:00, Duration: 30 day, Stop date: 11/02/12 9:00:00 senna 2012-0 No [facility] 8.6 mg, 1 M emoria 4-19 donna Guaman tab, l 02:00: Route: PO, [facility] 00 Drug Form: TAB, Dosing Weight 91.818, kg, Q12H, Start date: 10/03/12 21:00:00, Duration: 30 day, Stop date: 11/02/12 9:00:00 carvedilol 2012-0 No Estela 12.5 mg, 1 Memoria 4-19 Young tab, l 02:00: Route: PO, [facility] 00 Drug form: TAB, Q12H, Dosing Weight [...] day, Stop date: 11/02/12 9:00:00 Ancef + 0 No [facility] 2 gm, Mem oria Sodium 4-19 donna Guaman Route: l Chloride 01:00: IVPB, Drug Her kowalski 0.9% IV 100 00 form: mL PDR/INJ, ABXQ8H, Dosing Weight 91.818, kg, Start date: 10/03/12 20:00:00, Duration: 1 day, Stop date: 10/04/12 12:00:00 Ancef + 2012-0 No [facility] 2 gm, Mem oria Sodium 4-19 donna Guaman Route: l Chloride 01:00: IVPB, Drug Her kowalski 0.9% IV 100 00 form: mL PDR/INJ, ABXQ8H, Dosing Weight 91.818, kg, Start date: 10/03/12 20:00:00, Duration: 1 day, Stop date: 10/04/12 12:00:00 Ancef + 0 No [facility] 2 gm, Mem oria Sodium 4-19 n Deniz Route: l Chloride 01:00: IVPB, Drug Her kowalski 0.9% IV 100 00 form: mL PDR/INJ, ABXQ8H, Dosing Weight 91.818, kg, Start date: 10/03/12 20:00:00, Duration: 1 day, Stop date: 10/04/12 12:00:00 Ancef + No [facility] 2 gm, Mem oria Sodium 4-19 donna Guaman Route: l Chloride 01:00: IVPB, Drug Her kowalski 0.9% IV 100 00 form: mL PDR/INJ, ABXQ8H, Dosing Weight 91.818, kg, Start date: 10/03/12 20:00:00, Duration: 1 day, Stop date: 10/04/12 12:00:00 Ancef + No [facility] 2 gm, Mem oria Sodium 4-19 donna Guaman Route: l Chloride 01:00: IVPB, Drug Her kowalski 0.9% IV 100 00 form: mL PDR/INJ, ABXQ8H, Dosing Weight 91.818, kg, Start date: 10/03/12 20:00:00, Duration: 1 day, Stop date: 10/04/12 12:00:00 Ancef + No [facility] 2 gm, Mem oria Sodium 4-19 n Deniz Route: l Chloride 01:00: IVPB, Drug Her kowalski 0.9% IV 100 00 form: mL PDR/INJ, ABXQ8H, Dosing Weight 91.818, kg, Start date: 10/03/12 20:00:00, Duration: 1 day, Stop date: 10/04/12 12:00:00 tramadol No Maisha L 50 mg, 1 Memoria 4-18 Michael tab, l 23:56: Route: PO, Luke 00 Drug form: TAB, Q4H, Dosing Weight 91.818, [...] Carmen 25 mL, l 23:18: Grazyna Route: [facility] 00 Law IVP, Drug Form: INJ, Dosing [...] 25 mL, l 23:18: Grazyna Route: Luke 00 Law IVP, Drug Form: INJ, Dosing [...] Carmen 25 mL, l 23:18: Grazyna Route: [facility] 00 Law IVP, Drug Form: INJ, Dosing [...] 25 mL, l 23:18: Grazyna Route: Luke 00 Law IVP, Drug Form: INJ, Dosing [...] 25 mL, l 23:18: Grazyna Route: Luke 00 Law IVP, Drug Form: INJ, Dosing Weight 91.818, kg, PRN, PRN Abnormal Lab Result, Start date: 10/03/12 18:18:00, Duration: 30 day, Stop date: 11/02/12 18:17:00 insulin 2012-0 No Petra 5 unit, Me moria regular 100 4-18 Carmen 0.05 mL, l units/mL 23:18: Route: Richard n human 00 Law SUB-Q, recombinant Drug form: SOLN, PRN, Dosing Weight 91.818, kg, PRN Abnormal Lab Result, Start date: 10/03/12 18:18:00, Duration: 30 day, Stop date: 11/02/12 18:17:00 hydrALAZINE 2012-0 No [facility] 20 mg, 1 Memoria 4-18 n Deniz mL, Route: l 23:14: IVP, Drug [facility] form: INJ, Q4H, Dosing Weight 91.818, kg, PRN Other -See Comment, Start date: 10/03/12 18:14:00, Duration: 30 day, Stop date: 11/02/12 18:13:00, SBP > 150 mmHg labetalol 2012-0 No [facility] 20 mg, 4 Memoria 4-18 n Deniz mL, Route: l 23:14: IVP, Drug [facility] form: INJ, Q15Min, Dosing Weight 91.818, kg, PRN Elevated BP, Start date: 10/03/12 18:14:00, Duration: 3 doses or times, Stop date: 10/04/12 0:00:00, SBP > 150 mmHg hydrALAZINE 2012-0 No [facility] 20 mg, 1 Memoria 4-18 n Deniz mL, Route: l 23:14: IVP, Drug [facility] 00 form: INJ, Q4H, Dosing Weight 91.818, [...] Deniz mL, Route: l 23:14: IVP, Drug [facility] 00 form: INJ, Q4H, Dosing Weight 91.818, kg, PRN Other -See Comment, Start date: 10/03/12 18:14:00, Duration: 30 day, Stop date: 11/02/12 18:13:00, SBP > 150 mmHg labetalol 2012-0 No [facility] 20 mg, 4 Memoria 4-18 n Deniz mL, Route: l 23:14: IVP, Drug [facility] 00 form: INJ, Q15Min, Dosing Weight 91.818, [...] Deniz mL, Route: l 23:14: IVP, Drug [facility] 00 form: INJ, Q15Min, Dosing Weight 91.818, kg, PRN Elevated BP, Start date: 10/03/12 18:14:00, Duration: 3 doses or times, Stop date: 10/04/12 0:00:00, SBP > 150 mmHg hydrALAZINE 2012-0 No [facility] 20 mg, 1 Memoria 4-18 n Deniz mL, Route: l 23:14: IVP, Drug [facility] 00 form: INJ, Q4H, Dosing Weight 91.818, [...] 10/04/12 0:00:00, SBP > 150 mmHg naloxone 2012-0 No [facility] 0.2 mg, Memoria 4-18 n Deniz 0.5 mL, l 23:04: Route: Luke 00 IVP, Drug form: INJ, Q5Min, PRN Narcotic Reversal, Start date: 10/03/12 18:04:00, Duration: 30 day, Stop date: 11/02/12 18:03:00 naloxone No [facility] 0.2 mg, Memoria 4-18 n Deniz 0.5 mL, l 23:04: Route: [facility] 00 IVP, Drug form: INJ, Q5Min, PRN Narcotic Reversal, Start date: 10/03/12 18:04:00, Duration: 30 day, Stop date: 11/02/12 18:03:00 naloxone 0 No [facility] 0.2 mg, Memoria 4-18 n Deniz 0.5 mL, l 23:04: Route: Luke 00 IVP, Drug form: INJ, Q5Min, PRN Narcotic Reversal, Start date: 10/03/12 18:04:00, Duration: 30 day, Stop date: 11/02/12 18:03:00 naloxone No [facility] 0.2 mg, Memoria 4-18 n Deniz 0.5 mL, l 23:04: Route: Luke 00 IVP, Drug form: INJ, Q5Min, PRN Narcotic Reversal, Start date: 10/03/12 18:04:00, Duration: 30 day, Stop date: 11/02/12 18:03:00 naloxone No [facility] 0.2 mg, Memoria 4-18 n Deniz 0.5 mL, l 23:04: Route: Luke 00 IVP, Drug form: INJ, Q5Min, PRN Narcotic Reversal, Start date: 10/03/12 18:04:00, Duration: 30 day, Stop date: 11/02/12 18:03:00 naloxone 0 No [facility] 0.2 mg, Memoria 4-18 n Deniz 0.5 mL, l 23:04: Route: [facility] 00 IVP, Drug form: INJ, Q5Min, PRN Narcotic Reversal, Start date: 10/03/12 18:04:00, Duration: 30 day, Stop date: 11/02/12 18:03:00 hydrALAZINE 2012-0 No Kahlil 20 mg, Memoria 4-18 Eng Route: l 22:15: IVP, ONCE, Dosing Weight 91.818, kg, Start date: 10/03/12 17:15:00, Stop date: 10/03/12 17:15:00 hydrALAZINE 2012-0 No Kahlil 20 mg, Memoria 4-18 Eng Route: l 22:15: IVP, ONCE, Luke Dosing Weight 91.818, kg, Start date: 10/03/12 17:15:00, Stop date: 10/03/12 17:15:00 hydrALAZINE 2012-0 No Kahlil 20 mg, Memoria 4-18 Eng Route: l 22:15: IVP, ONCE, Luke 00 Dosing Weight 91.818, kg, Start date: 10/03/12 17:15:00, Stop date: 10/03/12 17:15:00 hydrALAZINE 2012-0 No Kahlil 20 mg, Memoria 4-18 Eng Route: l 22:15: IVP, ONCE, Luke 00 Dosing Weight 91.818, kg, Start date: 10/03/12 17:15:00, Stop date: 10/03/12 17:15:00 hydrALAZINE 2012-0 No Kahlil 20 mg, Memoria 4-18 Eng Route: l 22:15: IVP, ONCE, [facility] 00 Dosing Weight 91.818, kg, Start date: 10/03/12 17:15:00, Stop date: 10/03/12 17:15:00 hydrALAZINE 2012-0 No Kahlil 20 mg, Memoria 4-18 Eng Route: l 22:15: IVP, ONCE, [facility] 00 Dosing Weight 91.818, kg, Start date: 10/03/12 17:15:00, Stop date: 10/03/12 17:15:00 diazepam 2012-0 No [facility] 5 mg, 1 [facility] 4-18 n Deniz tab, l 21:00: Route: PO, Luke 00 Drug form: TAB, Q8H, Dosing Weight 91.818, kg, Start date: 10/03/12 16:00:00, Duration: 30 day, Stop date: 11/02/12 8:00:00 diazepam 2012-0 No [facility] 5 mg, 1 [facility] 4-18 n Deniz tab, l 21:00: Route: PO, [facility] 00 Drug form: TAB, Q8H, Dosing Weight 91.818, kg, Start date: 10/03/12 16:00:00, Duration: 30 day, Stop date: 11/02/12 8:00:00 diazepam 2012-0 No [facility] 5 mg, 1 [facility] 4-18 n Deniz tab, l 21:00: Route: PO, [facility] 00 Drug form: TAB, Q8H, Dosing Weight 91.818, kg, Start date: 10/03/12 16:00:00, Duration: 30 day, Stop date: 11/02/12 8:00:00 diazepam 2012-0 No [facility] 5 mg, 1 [facility] 4-18 n Deniz tab, l 21:00: Route: PO, Luke 00 Drug form: TAB, Q8H, Dosing Weight 91.818, [...] & Vomiting, Start date: 10/03/12 15:54:00 promethazin 2012-0 No Kahlil 6.25 mg, Memoria e 4-18 Eng 0.25 mL, l 20:54: Route: IVPB, Drug form: INJ, ONCE, Dosing Weight 91.818, kg, PRN Nausea & Vomiting, Start date: 10/03/12 15:54:00 flumazenil 2012- No Kahlil 0.2 mg, 2 [facility] 4-18 Eng mL, Route: l 20:54: IVP, Drug Luke 00 form: INJ, PRN, Dosing Weight 91.818, kg, PRN Benzodiaze pine Reversal, Initial dose, Start date: 10/03/12 15:54:00, Duration: 1 day, Stop date: 10/04/12 15:53:00 naloxone 2012-0 No Kahlil 0.04 mg, M emoria 4-18 [...] or times, Stop date: 10/04/12 0:00:00 labetalol 2012-0 No Kahlil 5 mg, 1 M emoria 4-18 Eng mL, Route: l 20:54: IVP, Drug form: INJ, Q5Min, Dosing Weight 91.818, kg, PRN Elevated BP, Start date: 10/03/12 15:54:00, Duration: 5 doses or times, Stop date: 10/04/12 0:00:00 ondansetron 2012-0 No Kahlil 4 mg, 2 [facility] 4-18 Eng mL, Route: l 20:54: IVP, Drug form: INJ, ONCE, Dosing Weight 91.818, kg, PRN Nausea & Vomiting, Start date: 10/03/12 15:54:00 promethazin 2012-0 No Kahlil 6.25 mg, Memoria e 4-18 Eng 0.25 mL, l 20:54: Route: [facility] 00 IVPB, Drug form: INJ, ONCE, Dosing [...] or times, Stop date: 10/04/12 0:00:00 ondansetron 2012-0 No Kahlil 4 mg, 2 [facility] 4-18 Eng mL, Route: l 20:54: IVP, Drug form: INJ, ONCE, Dosing Weight 91.818, kg, PRN Nausea & Vomiting, Start date: 10/03/12 15:54:00 promethazin 2012-0 No Kahlil 6.25 mg, Memoria e 4-18 Eng 0.25 mL, l 20:54: Route: [facility] 00 IVPB, Drug form: INJ, ONCE, Dosing Weight 91.818, kg, PRN Nausea & Vomiting, Start date: 10/03/12 15:54:00 flumazenil 2012-0 No Kahlil 0.2 mg, 2 Memoria 4-18 Eng mL, Route: l 20:54: IVP, Drug form: INJ, PRN, Dosing Weight 91.818, kg, PRN Benzodiaze pine Reversal, Initial dose, Start date: 10/03/12 15:54:00, Duration: 1 day, Stop date: 10/04/12 15:53:00 naloxone 2012-0 No Kahlil 0.04 mg, M emoria 4-18 [...] or times, Stop date: 10/04/12 0:00:00 labetalol 2012-0 No Kahlil 5 mg, 1 M emoria 4-18 Eng mL, Route: l 20:54: IVP, Drug form: INJ, Q5Min, Dosing Weight 91.818, kg, PRN Elevated BP, Start date: 10/03/12 15:54:00, Duration: 5 doses or times, Stop date: 10/04/12 0:00:00 ondansetron 2012-0 No Kahlil 4 mg, 2 [...] or times, Stop date: 10/04/12 0:00:00 ondansetron 2012-0 No Kahlil 4 mg, 2 [...] or times, Stop date: 10/04/12 0:00:00 labetalol 0 No Kahlil 5 mg, 1 M emoria [...] Eng mL, Route: l 20:54: IVP, Drug [facility] 00 form: INJ, Q5Min, Dosing Weight 91.818, kg, PRN Elevated BP, Start date: 10/03/12 15:54:00, Duration: 5 doses or times, Stop date: 10/04/12 0:00:00 HYDROmorpho No [facility] 15 mg, 30 Memoria ne 0.5mg/mL 4-18 n Deniz mL, Route: l SAND 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 17:00: IV, SAND SCREENER [facility] (15mg/30 00 Dose: 0.3 mL) 15 mg mg, SAND SCREENER Lockout: 15 minutes, 4 Hour Limit (In MG): 4.8, Drug Form: INJ, Continuous , Start date: 10/03/12 12:00:00, Stop date: 11/02/12 11:59:00 HYDROmorpho No [facility] 15 mg, 30 Memoria ne 0.5mg/mL 4-18 n Deniz mL, Route: l 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 17:00: IV, SAND SCREENER [facility] (15mg/30 00 Dose: 0.3 mL) 15 mg mg, SAND SCREENER Lockout: 15 minutes, 4 Hour Limit (In MG): 4.8, Drug Form: INJ, Continuous , Start date: 10/03/12 12:00:00, Stop date: 11/02/12 11:59:00 HYDROmorpho No [facility] 15 mg, 30 Memoria ne 0.5mg/mL 4-18 n Deniz mL, Route: l SAND SCREENER 17:00: IV, SAND SCREENER [facility] (15mg/30 00 Dose: 0.3 mL) 15 mg mg, SAND SCREENER Lockout: 15 minutes, 4 Hour Limit (In MG): 4.8, Drug Form: INJ, Continuous , Start date: 10/03/12 12:00:00, Stop date: 11/02/12 11:59:00 HYDROmorpho 0 No [facility] 15 mg, 30 Memoria ne 0.5mg/mL 4-18 n Deniz mL, Route: l SAND SCREENER 17:00: IV, SAND SCREENER [facility] (15mg/30 00 Dose: 0.3 mL) 15 mg mg, SAND SCREENER Lockout: 15 minutes, 4 Hour Limit (In MG): 4.8, Drug Form: INJ, Continuous , Start date: 10/03/12 12:00:00, Stop date: 11/02/12 11:59:00 HYDROmorpho 2012-0 No [facility] 15 mg, 30 Memoria ne 0.5mg/mL 4-18 n Deniz mL, Route: l SAND SCREENER 17:00: IV, SAND SCREENER Luke (15mg/30 00 Dose: 0.3 mL) 15 mg mg, SAND SCREENER Lockout: 15 minutes, 4 Hour Limit (In MG): 4.8, Drug Form: INJ, Continuous , Start date: 10/03/12 12:00:00, Stop date: 11/02/12 11:59:00 HYDROmorpho No [facility] 15 mg, 30 Memoria ne 0.5mg/mL 4-18 n Deniz mL, Route: l SAND SCREENER 17:00: IV, SAND SCREENER [facility] (15mg/30 00 Dose: 0.3 mL) 15 mg mg, SAND SCREENER Lockout: 15 minutes, 4 Hour Limit (In MG): 4.8, Drug Form: INJ, Continuous , Start date: 10/03/12 12:00:00, Stop date: 11/02/12 11:59:00 Saline No [facility] 5 ml, Boy tadeo Flush 0.9% 4-18 n Deniz Route: l 16:42: IVP, Drug [facility] 00 Form: INJ, Dosing Weight 91.818, kg, PRN, PRN Line Flush, Start date: 10/03/12 11:42:00, Duration: 30 day, Stop date: 11/02/12 11:41:00 ondansetron No [facility] 4 mg, 2 [facility]oria 4-18 n Deniz mL, Route: l 16:42: IVP, Drug [facility] 00 form: INJ, Q8H, Dosing Weight 91.818, kg, PRN Nausea & Vomiting, Start date: 10/03/12 11:42:00, Duration: 30 day, Stop date: 11/02/12 11:41:00 acetaminoph No [facility] 650 mg, Memoria en 4-18 n [facility]iz 20.3 mL, l 16:42: Route: PO, [facility] 00 Drug form: LIQ, Q4H, Dosing Weight [...] n Deniz Route: l 16:42: IVP, Drug [facility] 00 Form: INJ, Dosing Weight 91.818, kg, [...] Deniz 20.3 mL, l 16:42: Route: PO, [facility] 00 Drug form: LIQ, Q4H, Dosing Weight [...] n Deniz Route: l 16:42: IVP, Drug [facility] 00 Form: INJ, Dosing Weight 91.818, kg, PRN, PRN Line Flush, Start date: 10/03/12 11:42:00, Duration: 30 day, Stop date: 11/02/12 11:41:00 ondansetron No [facility] 4 mg, 2 [facility]oria 4-18 n Deniz mL, Route: l 16:42: IVP, Drug [facility] form: INJ, Q8H, Dosing Weight 91.818, kg, PRN Nausea & Vomiting, Start date: 10/03/12 11:42:00, Duration: 30 day, Stop date: 11/02/12 11:41:00 acetaminoph No [facility] 650 mg, Memoria en 4-18 n [facility]iz 20.3 mL, l 16:42: Route: PO, [facility] 00 Drug form: LIQ, Q4H, Dosing Weight [...] n Deniz Route: l 16:42: IVP, Drug [facility] 00 Form: INJ, Dosing Weight 91.818, kg, [...] Deniz 20.3 mL, l 16:42: Route: PO, [facility] 00 Drug form: LIQ, Q4H, Dosing Weight [...] n Deniz Route: l 16:42: IVP, Drug [facility] 00 Form: INJ, Dosing Weight 91.818, kg, [...] [facility]iz 20.3 mL, l 16:42: Route: PO, [facility] 00 Drug form: LIQ, Q4H, Dosing Weight [...] [facility]iz 20.3 mL, l 16:42: Route: PO, [facility] 00 Drug form: LIQ, Q4H, Dosing Weight [...] No Keron 1,000 mL, M emoria 20mEq/L 418 Gabbie Rate: 70 l 1000ml 10:00: William [...] 1 day, Stop date: 10/04/12 4:59:00 cefazolin 2012-0 No Keron 2 gm, 100 Memoria 4-18 [...] 1 day, Stop date: 10/04/12 4:59:00 cefazolin 0 No Keron 2 gm, 100 [facility] 4-18 [...] 1 day, Stop date: 10/04/12 4:59:00 cefazolin 2012-0 No Keron 2 gm, 100 Memoria 4-18 Gabbie mL, Route: l 10:00: William IVPB, Drug Herm robert 00 form: INJ, PRE OP, Start date: 10/03/12 5:00:00, Duration: 1 day, Stop date: 10/04/12 4:59:00 NS + KCL No Keron 1,000 mL, M emoria 20mEq/L 4-18 Gabbie Rate: 70 l 1000ml 10:00: William ml/hr, Rich[place] n (Premix) 00 Infuse 1,000 mL over: [...] day, Stop date: 10/04/12 4:59:00 Vicodin HP 2012-0 Yes PO, PRN, Mem oria 10 mg-300 4-16 Substituti l mg oral 21:32: on [facility] tablet 18 Allowed, Maintenanc e Vicodin HP 2012-0 Yes PO, PRN, Mem oria 10 mg-300 4-16 Substituti l mg oral 21:32: on Luke tablet 18 Allowed, Maintenanc e Vicodin HP 2012-0 Yes PO, PRN, Mem oria 10 mg-300 4-16 Substituti l mg oral 21:32: on Luke tablet 18 Allowed, Maintenanc e Vicodin HP 2012-0 Yes PO, PRN, Mem oria 10 mg-300 4-16 Substituti l mg oral 21:32: on [facility] tablet 18 Allowed, Maintenanc e Vicodin HP 2012-0 Yes PO, PRN, Mem oria 10 mg-300 4-16 Substituti l mg oral 21:32: on [facility] tablet 18 Allowed, Maintenanc e Vicodin HP 2012-0 Yes PO, PRN, Mem oria 10 mg-300 4-16 Substituti l mg oral 21:32: on Luke tablet 18 Allowed, Maintenanc e Dulcolax 2012-0 Yes 1 supp, Memori a Laxative 4-16 AR, Daily, l 21:32: PRN, 5 Luke 02 supp, constipati on, Substituti on Allowed, SUPP Dulcolax 2012-0 Yes 1 supp, Memori a Laxative 4-16 AR, Daily, l 21:32: PRN, 5 Luke 02 supp, constipati on, Substituti on Allowed, SUPP Dulcolax 2012-0 Yes 1 supp, Memori a Laxative 4-16 AR, Daily, l 21:32: PRN, 5 [facility] 02 supp, constipati on, Substituti on Allowed, SUPP Dulcolax 2012-0 Yes 1 supp, Memori a Laxative 4-16 AR, Daily, l 21:32: PRN, 5 [facility] 02 supp, constipati on, Substituti on Allowed, SUPP Dulcolax 2012-0 Yes 1 supp, Memori a Laxative 4-16 AR, Daily, l 21:32: PRN, 5 [facility] 02 supp, constipati on, Substituti on Allowed, SUPP Dulcolax 2012-0 Yes 1 supp, Memori a Laxative 4-16 AR, Daily, l 21:32: PRN, 5 [facility] 02 supp, constipati on, Substituti on Allowed, SUPP clonidine 2012-0 Yes -Aaro PO, QID, [facility] 0.1 mg oral 4-16 n Deniz prn l tablet 21:31: bp>160, [facility] 30 Substituti on [id number] clonidine 2013-0 Yes [facility] PO, QID, Memoria 0.1 mg oral 4-16 n Deniz prn l tablet 21:31: bp>160, Luke 30 Substituti on [id number] clonidine Yes -Joseo PO, QID, Memoria 0.1 mg oral 4-16 n Deniz prn l tablet 21:31: bp>160, [facility] 30 Substituti on [id number] clonidine Yes -Joseo PO, QID, [facility]oria 0.1 mg oral 4-16 n Deniz prn l tablet 21:31: bp>160, Luke 30 Substituti on [id number] clonidine Yes -Jsoeo PO, QID, Memoria 0.1 mg oral 4-16 n Denzi prn l tablet 21:31: bp>160, [facility] 30 Substituti on [id number] clonidine Yes -Jordi PO, QID, Memoria 0.1 mg oral 4-16 n Deniz prn l tablet 21:31: bp>160, Luke 30 Substituti on [id number] Benicar HCT Yes 1 tab, PO, Memoria 12.5 mg-40 4-16 Daily, 30 l mg oral 21:30: tab, [facility] tablet 43 Substituti on Allowed, Maintenanc e, TAB Benicar HCT Yes 1 tab, PO, Memoria 12.5 mg-40 4-16 Daily, 30 l mg oral 21:30: tab, Luke tablet 43 Substituti on Allowed, Maintenanc e, TAB Benicar HCT Yes 1 tab, PO, Memoria 12.5 mg-40 4-16 Daily, 30 l mg oral 21:30: tab, [facility] tablet 43 Substituti on Allowed, Maintenanc e, TAB Benicar HCT Yes 1 tab, PO, [facility]oria 12.5 mg-40 4-16 Daily, 30 l mg oral 21:30: tab, [facility] tablet 43 Substituti on Allowed, Maintenanc e, TAB Benicar HCT Yes 1 tab, PO, Memoria 12.5 mg-40 4-16 Daily, 30 l mg oral 21:30: tab, Luke tablet 43 Substituti on Allowed, Maintenanc e, TAB Benicar HCT Yes 1 tab, PO, [facility] 12.5 mg-40 4-16 Daily, 30 l mg oral 21:30: tab, [facility] tablet 43 Substituti on Allowed, Maintenanc e, [...] tab, PO, l tablet 21:30: Q12H, 60 [facility] 29 tab, Substituti on Allowed, TAB carvedilol Yes [facility] 25 mg, 1 [facility] 25 mg oral 4-16 n Deniz tab, PO, l tablet 21:30: Q12H, 60 [facility] 29 tab, Substituti on Allowed, TAB carvedilol [...] unit, Memoria 4-16 SUB-Q, l 21:29: Bedtime, [facility] 53 Substituti on Allowed Lantus 2013-0 Yes 22 unit, [facility] 4-16 SUB-Q, l 21:29: Bedtime, [facility] 53 Substituti on Allowed Lantus 2013-0 Yes 22 unit, [facility] 4-16 SUB-Q, l 21:29: Bedtime, [facility] 53 Substituti on Allowed Lantus 2013-0 Yes 22 unit, [facility] 4-16 SUB-Q, l 21:29: Bedtime, [facility] 53 Substituti on Allowed Lantus 2013-0 Yes 22 unit, [facility] 4-16 SUB-Q, l 21:29: Bedtime, [facility] 53 Substituti on Allowed Lantus 2013-0 Yes 22 unit, [facility] 4-16 SUB-Q, l 21:29: Bedtime, [facility] 53 Substituti on Allowed glimepiride 2013-0 Yes 8 mg, 2 Mem oria 4 mg oral 4-16 tab, PO, l tablet 21:29: Daily, [facility] 45 Substituti on Allowed glimepiride 2013-0 Yes 8 mg, 2 Mem oria 4 mg oral 4-16 tab, PO, l tablet 21:29: Daily, [facility] 45 Substituti on Allowed glimepiride 2013-0 Yes 8 mg, 2 Mem oria 4 mg oral 4-16 tab, PO, l tablet 21:29: Daily, [facility] 45 Substituti on Allowed glimepiride 2013-0 Yes 8 mg, 2 Mem oria 4 mg oral 4-16 tab, PO, l tablet 21:29: Daily, [facility] 45 Substituti on Allowed glimepiride 2013-0 Yes 8 mg, 2 Mem oria 4 mg oral 4-16 tab, PO, l tablet 21:29: Daily, [facility] 45 Substituti on Allowed glimepiride 2013-0 Yes 8 mg, 2 Mem oria 4 mg oral 4-16 tab, PO, l tablet 21:29: Daily, [facility] 45 Substituti on Allowed glimepiride glimepiride 2010-06 [...] 00 by other Sports MD Aquino e metFORMIN metFORMIN Yes UT HCl - 500 HCl - 500 Physi ci MG Oral MG Oral ans Tablet Tablet Tresiba Tresiba Yes UT FlexTouch FlexTouch Physi ci 100 UNIT/ML 100 UNIT/ML a ns Subcutaneou Subcutaneou s Solution s Solution Pen-injecto Pen-injecto r r Tradjenta 5 Tradjenta 5 Yes U T MG Oral MG Oral Physici Tablet Tablet ans Trulicity Trulicity Yes UT 0.75 0.75 Physici MG/0.5ML MG/0.5ML ans Subcutaneou Subcutaneou s Solution s Solution Pen-injecto Pen-injecto r r amLODIPine amLODIPine Yes UT Besylate 5 Besylate 5 Phy sici MG Oral MG Oral ans Tablet Tablet Carvedilol Carvedilol Yes UT 25 MG Oral 25 MG Oral Phy sici Tablet Tablet ans Cinacalcet Cinacalcet Yes UT HCl - 30 MG HCl - 30 MG P hysici Oral Tablet Oral Tablet a ns Lisinopril Lisinopril Yes UT 20 MG Oral 20 MG Oral Phy sici Tablet Tablet ans Pravastatin Pravastatin Yes U T Sodium 20 Sodium 20 Physi ci MG Oral MG Oral ans Tablet Tablet Aspirin 81 Aspirin 81 Yes UT MG TABS MG TABS Physici ans Brilinta 90 Brilinta 90 Yes U T MG Oral MG Oral Physici Tablet Tablet ans Gabapentin Gabapentin Yes UT 300 MG Oral 300 MG Oral P hysici Capsule Capsule ans Furosemide Furosemide Yes UT 20 MG Oral 20 MG Oral Phy sici Tablet Tablet ans Vitamin D3 Vitamin D3 Yes UT TABS TABS Physici ans MiraLax MiraLax Yes UT POWD POWD Physici ans Crestor 10 Crestor 10 No Crestor 10 Arlin mg tablet mg tablet mg tablet [facility] RX by other RX by other RX by dic MD MD other Sports Medicin e DulcoEase DulcoEase No DulcoEase [...] MD Medicin e Hasmukh Noe No Hasmukh Montes De Ocalea XR 5 XR 5 XR 5 Orthope [...] MD by other MD by other e Crestleonela 10 Crestor 10 No Crestor 10 Arlin mg tablet mg tablet mg tablet [facility] RX by other RX by other RX by dic MD MD kathy Skinner DulcoEase DulcoEase No DulcoEase Arlin 100 [...] MD by other Sports MD Miles [place] Jentadueto Jentadueto No Jentadueto [facility]lin XR 5 XR 5 [...] other RX by dic MD MD kathy Skinner DulcoEase DulcoEase No DulcoEase [facility] 100 mg 100 mg 100 mg [facility] capsule RX capsule RX capsule RX dic by other MD by other by other Sports MD Miles [place] ezetimibe [...] TIMES A DAY THREE TIMES A DAY hydrocodone hydrocodone No 1 Q6H hydrocodon Arlin [...] other MD by other Sports MD Rajesh Pastortadueto No Jordandueto [facility] XR 5 XR 5 XR 5 [...] MD by other Sports MD Medicin e amlodipine amlodipine No 5mg amlodipine Arlin 5 mg tablet 5 mg tablet 5 mg O rthope 5 mg by 5 mg by tablet 5 dic oral route. oral route. mg by oral Sports route. Medicin e amoxicillin amoxicillin No amoxicilli Arlin [...] e 125 mg e tablet tablet tablet aspirin,buf aspirin,buf No 81mg aspirin,bu Alrin fered fered ffered [facility] (calcium (calcium (calcium dic carb-mag-al carb-mag-al carb-mag-a Sports uminum) 81 uminum) 81 luminum) Medicin mg oral del mg oral del 81 mg oral e rel tablet rel tablet del rel 81 mg by 81 mg by tablet 81 oral route. oral route. mg by oral route. BD BD No BD [facility] Ultra-Fine Ultra-Fine Ultra-Fine [facility] Shaina Pen Shaina Pen Shaina Pen dic Needle 32 Needle 32 Needle 32 Sports gauge x gauge x gauge x Medici n " USE " USE " USE e DIRECTED DIRECTED 4 TIMES 4 TIMES DIRECTED 4 DAILY DAILY TIMES DAILY budesonide budesonide No budesonide [facility] 1 mg/2 mL 1 mg/2 mL 1 mg/2 mL [facility] suspension suspension suspension dic for for for Sports nebulizatio nebulizatio nebulizati Medicin n EMPTY 2 n EMPTY 2 on EMPTY 2 e VIALS (4ML) VIALS (4ML) VIALS INTO INTO (4ML) INTO IRRIGATION IRRIGATION IRRIGATION SYSTEM, ADD SYSTEM, ADD SYSTEM, DISTILLED DISTILLED ADD WATER, WATER, DISTILLED IRRIGATE - IRRIGATE - WATER, ONCE TO ONCE TO IRRIGATE - TWICE DAILY TWICE DAILY ONCE TO TWICE DAILY carvedilol carvedilol No carvedilol [facility] 12.5 mg 12.5 mg 12.5 mg Orthop e tablet TAKE tablet TAKE tablet dic 1 TABLET BY 1 TABLET BY TAKE 1 Sports MOUTH TWICE MOUTH TWICE TABLET BY Medicin A DAY A DAY MOUTH e TWICE A DAY carvedilol carvedilol No 25mg BID carvedilol [facility] 25 mg 25 mg 25 mg [facility] tablet 25 tablet 25 tablet 25 dic mg twice a mg twice a mg twice a Sports day by oral day by oral day by Medicin route. route. oral e route. cefixime cefixime No cefixime Aza maritza 400 mg 400 mg 400 mg [facility] capsule capsule capsule dic EMPTY 1 EMPTY 1 EMPTY 1 Sports CAPSULE CAPSULE CAPSULE Medici n INTO INTO INTO e IRRIGATION IRRIGATION IRRIGATION SYSTEM, ADD SYSTEM, ADD SYSTEM, DISTILLED DISTILLED ADD WATER, WATER, DISTILLED IRRIGATE - IRRIGATE - WATER, TWICE DAILY TWICE DAILY IRRIGATE - TWICE DAILY cholecalcif cholecalcif No 1000U cholecalci [facility] loren loren ferol [facility] (vitamin (vitamin (vitamin dic D3) 25 mcg D3) 25 mcg D3) 25 mcg Sports (1,000 (1,000 (1,000 Medicin unit) unit) unit) e capsule capsule capsule 1000 units 1000 units 1000 units by oral by oral by oral route. route. route. clindamycin clindamycin No clindamyci [facility] 2 % vaginal 2 % vaginal n 2 % [facility] cream cream vaginal dic cream Sports Medicin e clonidine clonidine No .1mg BID clonidine [facility] HCl 0.1 mg HCl 0.1 mg HCl 0.1 mg [facility] tablet 0.1 tablet 0.1 tablet 0.1 dic mg twice a mg twice a mg twice a Sports day by oral day by oral day by Medicin route. route. oral e route. Co Q-10 Co Q-10 No Co Q-10 [facility] (with Vit (with Vit (with Vit [facility] E) 100 mg-5 E) 100 mg-5 E) 100 dic unit unit mg-5 unit Sports capsule RX capsule RX capsule RX Medicin by other MD by other MD by other e Crestleonela 10 Crestor 10 No Crestor 10 Arlin mg tablet mg tablet mg tablet [facility] RX by other RX by other RX by dic MD MD kathy Muir Medicmatty [place] DulcoEase DulcoEase No DulcoEase [facility] 100 mg 100 mg 100 mg [facility] capsule RX capsule RX capsule RX dic by other MD by other MD by other Sports Medicmatty [place] ezetimibe ezetimibe No ezetimibe Arlin 10 [...] 72 HOURS 4 DAY(S) furosemide furosemide No 20mg BID furosemide [facility] 20 mg 20 mg 20 mg [facility] tablet 20 tablet 20 tablet 20 dic mg twice a mg twice a mg twice a Sports day by oral day by oral day by Medicin route. route. oral e route. hydralazine hydralazine No hydralazin [facility] 25 mg 25 mg e 25 mg [facility] tablet TAKE tablet TAKE tablet dic 1 TABLET BY 1 TABLET BY TAKE 1 Sports MOUTH THREE MOUTH THREE TABLET BY Medicin TIMES A DAY TIMES A DAY MOUTH e THREE TIMES A DAY hydrocodone hydrocodone No hydrocodon Arlin [...] TODAY TODAY TODAY e irbesartan irbesartan No 300mg irbesartan [facility] 300 mg 300 mg 300 mg [facility] tablet 300 tablet 300 tablet 300 dic mg by oral mg by oral mg by oral Sports route. route. route. Medicin e Jentadueto Jentadueto No Jentadueto [facility] XR 5 XR 5 XR 5 [facility] mg-1,000 mg mg-1,000 mg mg-1,000 dic tablet, tablet, mg tablet, Spo rts extended extended extended Med icin release 1 release 1 release 1 e tablet with tablet with tablet a meal a meal with a Orally Once Orally Once meal a day a day Orally Once a day Livalo 1 mg Livalo 1 mg No 2mg Livalo 1 Arlin tablet 2 mg tablet 2 mg mg tablet [facility] by oral by oral 2 mg by dic route. route. oral Sports route. Medicin e Livalo 4 mg Livalo 4 mg No [...] WITH DINNER WITH DINNER EVENING WITH DINNER mupirocin 2 mupirocin 2 No mupirocin Arlin % topical % topical 2 % Ortho pe ointment ointment topical dic ointment Sports Medicin e nifedipine nifedipine No nifedipine [facility] ER 30 [...] EVERY DAY Novolog Novolog No Novolog [facility] FlexPen FlexPen FlexPen Orth[facility] e U-100 U-100 U-100 dic Insulin [...] FOR 30 DAYS omeprazole omeprazole No omeprazole [facility] 20 mg 20 mg 20 mg [facility] capsule,del capsule,del capsule,de dic ayed ayed layed Sports release release release Medici n TAKE 1 TAKE 1 TAKE 1 e CAP(S) CAP(S) CAP(S) ORALLY ONCE ORALLY ONCE ORALLY A DAY 30 A DAY 30 ONCE A DAY MINUTES MINUTES 30 MINUTES BEFORE BEFORE BEFORE BREAKFAST BREAKFAST BREAKFAST 90 DAYS 90 DAYS 90 DAYS Ozempic Ozempic No Ozempic Arlin 0.25 [...] 30 WEEK FOR DAYS. DAYS. 30 DAYS. polyethylen polyethylen No 17g polyethyle Arlin e glycol e glycol ne glycol Or thope 3350 4 gram 3350 4 gram 3350 4 dic oral powder oral powder gram oral Sports packet 17 g packet 17 g powder Medicin by oral by oral packet 17 e route. route. g by oral route. Premarin Premarin No Premarin Aza maritza 0.625 [...] TWICE A DAY EYES TWICE A DAY spironolact spironolact No 25mg spironolac [facility] one 25 mg one 25 mg tone 25 mg [facility] tablet 25 tablet 25 tablet 25 dic mg by oral mg by oral mg by oral Sports route. route. route. Medicin e Tresiba Tresiba No Tresiba Arlin [...] DIRECTED *TOTAL DAILY DOSE 50 UNITS* Trulicity Trulicity No Trulicity [facility]lin 1.5 mg/0.5 1.5 mg/0.5 1.5 mg/0.5 [facility] mL mL mL dic subcutaneou subcutaneou subcutaneo Sports s pen s pen us pen Medicin injector injector injector e Trulicity 3 Trulicity 3 No Trulicity Arlin [...] RX by other RX by dic MD other Sports Medicin e DulcoEase DulcoEase No DulcoEase Arlin 100 mg 100 mg 100 mg [facility] capsule RX capsule RX capsule RX dic by other MD by other MD by other Sports MD Medicin e ezetimibe ezetimibe No ezetimibe Arlin [...] by other e Accu-Chek Accu-Chek No Accu-Chek [facility] Fior Meter Fior Meter Fior Family Meter Practic e Accu-Chek Accu-Chek No Accu-Chek [facility] Fior Plus Fior Plus Fior Plus Family test strips test strips test P ractic TEST 3 TEST 3 strips e TIMES A DAY TIMES A DAY TEST 3 DIRECTED DIRECTED TIMES A DAY DIRECTED Accu-Chek Accu-Chek No Accu-Chek [facility] Fastclix Fastclix Fastclix Fam gail Lancet Drum Lancet Drum Lancet Practic USE USE Drum USE e DIRECTED 3 DIRECTED 3 TIMES DAILY TIMES DAILY DIRECTED 3 TIMES DAILY Accu-Chek Accu-Chek No Accu-Chek [facility] FastClix FastClix FastClix Fam gail Lancing Lancing Lancing Practi c Device Device Device e acetaminoph acetaminoph No acetaminop [facility] en 300 en 300 hen 300 Family mg-codeine mg-codeine mg-codeine Practic 60 mg 60 mg 60 mg e tablet TAKE tablet TAKE tablet 1 TABLET BY 1 TABLET BY TAKE 1 MOUTH EVERY MOUTH EVERY TABLET BY 6 HOURS 6 HOURS MOUTH NEEDED NEEDED EVERY 6 HOURS NEEDED acyclovir acyclovir acyclovir [facility] 800 mg 800 mg 800 mg Family tablet tablet tablet Practic e alprazolam alprazolam alprazolam [facility] 0.25 mg 0.25 mg 0.25 mg Family [...] DAILY TIMES DAILY carvedilol carvedilol No carvedilol [facility] 12.5 mg 12.5 mg 12.5 mg Family tablet TAKE tablet TAKE tablet Practic 1 TABLET BY 1 TABLET BY TAKE 1 e MOUTH TWICE MOUTH TWICE TABLET BY A DAY A DAY MOUTH TWICE A DAY carvedilol carvedilol No carvedilol [facility] 25 mg 25 mg 25 mg Family tablet TAKE tablet TAKE tablet Practic 1 TABLET BY 1 TABLET BY TAKE 1 e MOUTH TWICE MOUTH TWICE TABLET BY A DAY A DAY MOUTH TWICE A DAY cinacalcet cinacalcet No cinacalcet [facility] 30 mg 30 mg 30 mg Family tablet TAKE tablet TAKE tablet Practic 1 TABLET BY 1 TABLET BY TAKE 1 e MOUTH TWICE MOUTH TWICE TABLET BY A DAY A DAY MOUTH TWICE A DAY clonidine clonidine No clonidine [facility] HCl 0.1 mg HCl 0.1 mg HCl [...] MOUTH EVERY DAY furosemide furosemide No furosemide [facility] 20 mg 20 mg 20 mg Family [...] 1:30; TDD 50 hydralazine hydralazine No hydralazin [facility] 25 mg 25 mg e 25 mg Family tablet TAKE tablet TAKE tablet Practic 1 TABLET BY 1 TABLET BY TAKE 1 e MOUTH TWICE MOUTH TWICE TABLET BY A DAY A DAY MOUTH TWICE A DAY hydrocodone hydrocodone No hydrocodon [facility] 5 5 e 5 Family mg-acetamin mg-acetamin [...] DIRECTED TODAY TODAY TODAY [facility]mukh [facility] XR 5 XR 5 XR 5 Family mg-1,000 mg mg-1,000 mg mg-1,000 Practic tablet, tablet, mg tablet, e extended extended extended release release release TAKE 1 TAKE 1 TAKE 1 TABLET BY TABLET BY TABLET BY MOUTH EVERY MOUTH EVERY MOUTH DAY IN THE DAY IN THE EVERY DAY MORNING MORNING IN THE MORNING lisinopril lisinopril No lisinopril [facility] 20 mg 20 mg 20 mg Family [...] Family Practic e nifedipine nifedipine No nifedipine [facility] ER 30 mg ER 30 mg ER 30 mg Fam gail tablet,exte tablet,exte tablet,ext Practic nded nded ended e release release release nifedipine nifedipine No nifedipine [facility] ER 30 mg ER 30 mg ER [...] FOR 30 DAYS Soliqua Soliqua No Soliqua Isaiag e 100/33 100 100/33 100 100/33 100 Family unit-33 unit-33 unit-33 Practi c mcg/mL mcg/mL mcg/mL e subcutaneou subcutaneou subcutaneo s insulin s insulin us insulin pen INJECT pen INJECT pen INJECT 36 UNITS 36 UNITS 36 UNITS SUBCUTANEOU SUBCUTANEOU SUBCUTANEO SLY IN THE SLY IN THE USLY IN MORNING MORNING THE INCREASE INCREASE MORNING DIRECTED DIRECTED INCREASE DIRECTED valsartan valsartan valsartan [facility] 320 mg 320 mg 320 mg Family tablet TAKE tablet TAKE tablet Practic 1 TABLET BY 1 TABLET BY TAKE 1 e MOUTH EVERY MOUTH EVERY TABLET BY DAY DAY MOUTH EVERY DAY Vitamin D3 Vitamin D3 No Vitamin D3 [facility] Family Practic e Accu-Chek Accu-Chek No Accu-Chek [facility] Fior Meter Fior Meter Fior Family Meter Practic e Accu-Chek Accu-Chek No Accu-Chek [facility] Fior Plus Fior Plus Fior Plus Family test strips test strips test P ractic TEST 3 TEST 3 strips e TIMES A DAY TIMES A DAY TEST 3 DIRECTED DIRECTED TIMES A DAY DIRECTED Accu-Chek Accu-Chek No Accu-Chek [facility] Fastclix Fastclix Fastclix Fam gail Lancet Drum Lancet Drum Lancet Practic USE USE Drum USE e DIRECTED 3 DIRECTED 3 TIMES DAILY TIMES DAILY DIRECTED 3 TIMES DAILY Accu-Chek Accu-Chek No Accu-Chek [facility] FastClix FastClix FastClix Fam gail Lancing Lancing Lancing Practi c Device Device Device e acetaminoph acetaminoph No acetaminop [facility] en 300 en 300 hen 300 Family mg-codeine mg-codeine mg-codeine Practic 60 mg 60 mg 60 mg e tablet TAKE tablet TAKE tablet 1 TABLET BY 1 TABLET BY TAKE 1 MOUTH EVERY MOUTH EVERY TABLET BY 6 HOURS 6 HOURS MOUTH NEEDED NEEDED EVERY 6 HOURS NEEDED acyclovir acyclovir No acyclovir [facility] 800 mg 800 mg 800 mg Family tablet tablet tablet Practic e alprazolam alprazolam No alprazolam [facility] 0.25 mg 0.25 mg 0.25 mg Family [...] DAILY TIMES DAILY budesonide budesonide No budesonide [facility] 1 mg/2 mL 1 mg/2 mL 1 mg/2 mL [facility] suspension suspension suspension Practic for for for [...] TO TWICE DAILY carvedilol carvedilol No carvedilol [facility] 12.5 mg 12.5 mg 12.5 mg Family [...] - TWICE DAILY cinacalcet cinacalcet No cinacalcet [facility] 30 mg 30 mg 30 mg Family tablet TAKE tablet TAKE tablet Practic 1 TABLET BY 1 TABLET BY TAKE 1 e MOUTH TWICE MOUTH TWICE TABLET BY A DAY A DAY MOUTH TWICE A DAY clindamycin clindamycin No clindamyci [facility] 2 % vaginal 2 % vaginal n 2 % Family cream cream vaginal Practic cream e clonidine clonidine No clonidine [facility] HCl 0.1 mg HCl 0.1 mg HCl [...] HOURS 4 DAY(S) furosemide furosemide No furosemide [facility] 20 mg 20 mg 20 mg Family [...] TIMES A DAY hydralazine hydralazine No hydralazin [facility] 25 mg 25 mg e 25 mg Family tablet TAKE tablet TAKE tablet Practic 1 TABLET BY 1 TABLET BY TAKE 1 e MOUTH THREE MOUTH THREE TABLET BY TIMES A DAY TIMES A DAY MOUTH THREE TIMES A DAY hydrocodone hydrocodone No hydrocodon [facility] 5 5 e 5 Family mg-acetamin mg-acetamin mg-acetami Practic ophen 325 ophen 325 nophen 325 e mg tablet mg tablet mg tablet TAKE 1 TAKE 1 TAKE 1 TABLET BY TABLET BY TABLET BY MOUTH EVERY MOUTH EVERY MOUTH 6 HOURS 6 HOURS EVERY 6 NEEDED NEEDED HOURS NEEDED [facility] No [facility] XR 5 XR 5 XR 5 Family mg-1,000 mg mg-1,000 mg mg-1,000 Practic tablet, tablet, mg tablet, e extended extended extended release release release TAKE 1 TAKE 1 TAKE 1 TABLET BY TABLET BY TABLET BY MOUTH EVERY MOUTH EVERY MOUTH DAY IN THE DAY IN THE EVERY DAY MORNING MORNING IN THE MORNING lisinopril lisinopril No lisinopril [facility] 20 mg 20 mg 20 mg Family tablet TAKE tablet TAKE tablet Practic 2 TABLETS 2 TABLETS TAKE 2 e BY MOUTH BY MOUTH TABLETS BY EVERY DAY EVERY DAY MOUTH EVERY DAY Livalo 4 mg Livalo 4 mg No Livalo 4 [facility] tablet TAKE tablet TAKE mg tablet Family [...] tic ointment e nifedipine nifedipine No nifedipine [facility] ER 30 mg ER 30 mg ER [...] 50 TDD 50 nystatin-tr nystatin-tr No nystatin-t [facility] iainolone iainolone riainolo Family 100,000 100,000 ne 100,000 Pra ctic [...] FOR 30 DAYS omeprazole omeprazole No omeprazole [facility] 20 mg 20 mg 20 mg Family [...] DIRECTED INCREASE DIRECTED valsartan valsartan No valsartan [facility] 320 mg 320 mg 320 mg Family tablet TAKE tablet TAKE tablet Practic 1 TABLET BY 1 TABLET BY TAKE 1 e MOUTH EVERY MOUTH EVERY TABLET BY DAY DAY MOUTH EVERY DAY Vitamin D3 Vitamin D3 No Vitamin D3 [facility] Family Practic e Accu-Chek Accu-Chek No Accu-Chek [facility] Fior Meter Fior Meter [facility] Meter Practic e Accu-Chek Accu-Chek No Accu-Chek [facility] Fior Plus Fior Plus Fior Plus Family test strips test strips test P ractic TEST 3 TEST 3 strips e TIMES A DAY TIMES A DAY TEST 3 DIRECTED DIRECTED TIMES A DAY DIRECTED Accu-Chek Accu-Chek No Accu-Chek [facility] Fastclix Fastclix Fastclix Fam gail Lancet Drum Lancet Drum Lancet Practic USE USE Drum USE e DIRECTED 3 DIRECTED 3 TIMES DAILY TIMES DAILY DIRECTED 3 TIMES DAILY Accu-Chek Accu-Chek No Accu-Chek [facility] FastClix FastClix FastClix Fam gail Lancing Lancing Lancing Practi c Device Device Device e acetaminoph acetaminoph No acetaminop [facility] en 300 en 300 hen 300 Family mg-codeine mg-codeine mg-codeine Practic 60 mg 60 mg 60 mg e tablet TAKE tablet TAKE tablet 1 TABLET BY 1 TABLET BY TAKE 1 MOUTH EVERY MOUTH EVERY TABLET BY 6 HOURS 6 HOURS MOUTH NEEDED NEEDED EVERY 6 HOURS NEEDED acyclovir acyclovir No acyclovir [facility] 800 mg 800 mg 800 mg Family tablet tablet tablet Practic e alprazolam alprazolam No alprazolam [facility] 0.25 mg 0.25 mg 0.25 mg Family [...] DAILY TIMES DAILY budesonide budesonide No budesonide [facility] 1 mg/2 mL 1 mg/2 mL 1 [...] TO TWICE DAILY carvedilol carvedilol No carvedilol [facility] 12.5 mg 12.5 mg 12.5 mg Family [...] - TWICE DAILY cinacalcet cinacalcet No cinacalcet [facility] 30 mg 30 mg 30 mg Family tablet TAKE tablet TAKE tablet Practic 1 TABLET BY 1 TABLET BY TAKE 1 e MOUTH TWICE MOUTH TWICE TABLET BY A DAY A DAY MOUTH TWICE A DAY clindamycin clindamycin No clindamyci [facility] 2 % vaginal 2 % vaginal n 2 % Family cream cream vaginal Practic cream e clonidine clonidine No clonidine [facility] HCl 0.1 mg HCl 0.1 mg HCl [...] DIRECTED DIRECTED DIRECTED ezetimibe ezetimibe No ezetimibe [facility] 10 mg 10 mg 10 mg Family tablet TAKE tablet TAKE tablet Practic 1 TABLET BY 1 TABLET BY TAKE 1 e MOUTH EVERY MOUTH EVERY TABLET BY DAY DAY MOUTH EVERY DAY fluconazole fluconazole No fluconazol [facility] 150 mg 150 mg e 150 mg Family tablet 1 tablet 1 tablet 1 Pra ctic TABLET TABLET TABLET e ORALLY NOW, ORALLY NOW, ORALLY THEN AGAIN THEN AGAIN NOW, THEN IN 72 HOURS IN 72 HOURS AGAIN IN 4 DAY(S) 4 DAY(S) 72 HOURS 4 DAY(S) furosemide furosemide No furosemide [facility] 20 mg 20 mg 20 mg Family tablet TAKE tablet TAKE tablet Practic 1 TABLET BY 1 TABLET BY TAKE 1 e MOUTH EVERY MOUTH EVERY TABLET BY DAY DAY MOUTH EVERY DAY gabapentin gabapentin No gabapentin [facility] 300 mg 300 mg 300 mg Family capsule capsule capsule Practi c TAKE 1 TAKE 1 TAKE 1 e CAPSULE BY CAPSULE BY CAPSULE BY MOUTH THREE MOUTH THREE MOUTH TIMES A DAY TIMES A DAY THREE TIMES A DAY hydralazine hydralazine No hydralazin [facility] 25 mg 25 mg e 25 mg Family tablet TAKE tablet TAKE tablet Practic 1 TABLET BY 1 TABLET BY TAKE 1 e MOUTH THREE MOUTH THREE TABLET BY TIMES A DAY TIMES A DAY MOUTH THREE TIMES A DAY hydrocodone hydrocodone No hydrocodon [facility] 5 5 e 5 Family mg-acetamin mg-acetamin mg-acetami Practic ophen 325 ophen 325 nophen 325 e mg tablet mg tablet mg tablet TAKE 1 TAKE 1 TAKE 1 TABLET BY TABLET BY TABLET BY MOUTH EVERY MOUTH EVERY MOUTH 6 HOURS 6 HOURS EVERY 6 NEEDED NEEDED HOURS NEEDED [facility] No 1 Q1D [facility] XR 5 XR 5 XR 5 [...] days. days. for 90 days. lisinopril lisinopril No lisinopril [facility] 20 mg 20 mg 20 mg Family tablet TAKE tablet TAKE tablet Practic 2 TABLETS 2 TABLETS TAKE 2 e BY MOUTH BY MOUTH TABLETS BY EVERY DAY EVERY DAY MOUTH EVERY DAY Livalo 4 mg Livalo 4 mg No Livalo 4 [facility] tablet TAKE tablet TAKE mg tablet Family [...] tic ointment e nifedipine nifedipine No nifedipine [facility] ER 30 mg ER 30 mg ER [...] 50 TDD 50 nystatin-tr nystatin-tr No nystatin-t [facility] iamcinolone iamcinolone riamcinolo Family 100,000 100,000 ne [...] FOR 30 DAYS omeprazole omeprazole No omeprazole [facility] 20 mg 20 mg 20 mg Family [...] TDD 60 directed: TDD 60 valsartan valsartan valsartan [facility] 320 mg 320 mg 320 mg Family tablet TAKE tablet TAKE tablet Practic 1 TABLET BY 1 TABLET BY TAKE 1 e MOUTH EVERY MOUTH EVERY TABLET BY DAY DAY MOUTH EVERY DAY Vitamin D3 Vitamin D3 No Vitamin D3 [facility] Family Practic e Accu-Chek Accu-Chek No Accu-Chek [facility] Fior Meter Fior Meter Fior Family Meter Practic e Accu-Chek Accu-Chek No Accu-Chek [facility] Fior Plus Fior Plus Fior Plus Family test strips test strips test P ractic TEST 3 TEST 3 strips e TIMES A DAY TIMES A DAY TEST 3 DIRECTED DIRECTED TIMES A DAY DIRECTED Accu-Chek Accu-Chek No Accu-Chek [facility] Fastclix Fastclix Fastclix Fam gail Lancet Drum Lancet Drum Lancet Practic USE USE Drum USE e DIRECTED 3 DIRECTED 3 TIMES DAILY TIMES DAILY DIRECTED 3 TIMES DAILY Accu-Chek Accu-Chek No Accu-Chek [facility] FastClix FastClix FastClix Fam gail Lancing Lancing Lancing Practi c Device Device Device e acetaminoph acetaminoph acetaminop [facility] en 300 en 300 hen 300 Family mg-codeine mg-codeine mg-codeine [facility] 60 mg 60 mg 60 mg e tablet TAKE tablet TAKE tablet 1 TABLET BY 1 TABLET BY TAKE 1 MOUTH EVERY MOUTH EVERY TABLET BY 6 HOURS 6 HOURS MOUTH NEEDED NEEDED EVERY 6 HOURS NEEDED acyclovir acyclovir acyclovir [facility] 800 mg 800 mg 800 mg Family tablet tablet tablet Practic e alprazolam alprazolam alprazolam [facility] 0.25 mg 0.25 mg 0.25 mg Family [...] oral directed. directed. route as directed. BD BD No BD [facility] Ultra-Fine Ultra-Fine Ultra-Fine Family Shaina Pen Shaina Pen Shaina Pen Pra ctic Needle 32 Needle 32 Needle 32 e gauge x gauge x gauge x " USE " USE " USE DIRECTED DIRECTED 4 TIMES 4 TIMES DIRECTED 4 DAILY DAILY TIMES DAILY budesonide budesonide No budesonide [facility] 1 mg/2 mL 1 mg/2 mL 1 [...] TO TWICE DAILY carvedilol carvedilol No carvedilol [facility] 12.5 mg 12.5 mg 12.5 mg Family [...] - TWICE DAILY cinacalcet cinacalcet No cinacalcet [facility] 30 mg 30 mg 30 mg Family tablet TAKE tablet TAKE tablet Practic 1 TABLET BY 1 TABLET BY TAKE 1 e MOUTH TWICE MOUTH TWICE TABLET BY A DAY A DAY MOUTH TWICE A DAY clonidine clonidine No clonidine [facility] HCl 0.1 mg HCl 0.1 mg HCl [...] DIRECTED DIRECTED DIRECTED ezetimibe ezetimibe No ezetimibe [facility] 10 mg 10 mg 10 mg Family tablet TAKE tablet TAKE tablet Practic 1 TABLET BY 1 TABLET BY TAKE 1 e MOUTH EVERY MOUTH EVERY TABLET BY DAY DAY MOUTH EVERY DAY fluconazole fluconazole No fluconazol [facility] 150 mg 150 mg e 150 mg Family tablet 1 tablet 1 tablet 1 Pra ctic TABLET TABLET TABLET e ORALLY NOW, ORALLY NOW, ORALLY THEN AGAIN THEN AGAIN NOW, THEN IN 72 HOURS IN 72 HOURS AGAIN IN 4 DAY(S) 4 DAY(S) 72 HOURS 4 DAY(S) furosemide furosemide No furosemide [facility] 20 mg 20 mg 20 mg Family tablet TAKE tablet TAKE tablet Practic 1 TABLET BY 1 TABLET BY TAKE 1 e MOUTH EVERY MOUTH EVERY TABLET BY DAY DAY MOUTH EVERY DAY gabapentin gabapentin No gabapentin [facility] 300 mg 300 mg 300 mg Family capsule capsule capsule Practi c TAKE 1 TAKE 1 TAKE 1 e CAPSULE BY CAPSULE BY CAPSULE BY MOUTH THREE MOUTH THREE MOUTH TIMES A DAY TIMES A DAY THREE TIMES A DAY hydralazine hydralazine No hydralazin [facility] 25 mg 25 mg e 25 mg Family tablet TAKE tablet TAKE tablet Practic 1 TABLET BY 1 TABLET BY TAKE 1 e MOUTH TWICE MOUTH TWICE TABLET BY A DAY A DAY MOUTH TWICE A DAY hydrocodone hydrocodone No hydrocodon [facility] 5 5 e 5 Family mg-acetamin mg-acetamin mg-acetami Practic ophen 325 ophen 325 nophen 325 e mg tablet mg tablet mg tablet TAKE 1 TAKE 1 TAKE 1 TABLET BY TABLET BY TABLET BY MOUTH EVERY MOUTH EVERY MOUTH 6 HOURS 6 HOURS EVERY 6 NEEDED NEEDED HOURS NEEDED [facility] No [facility] XR 5 XR 5 XR 5 Family mg-1,000 mg mg-1,000 mg mg-1,000 Practic tablet, tablet, mg tablet, e extended extended extended release release release TAKE 1 TAKE 1 TAKE 1 TABLET BY TABLET BY TABLET BY MOUTH EVERY MOUTH EVERY MOUTH DAY IN THE DAY IN THE EVERY DAY MORNING MORNING IN THE MORNING lisinopril lisinopril No lisinopril [facility] 20 mg 20 mg 20 mg Family tablet TAKE tablet TAKE tablet Practic 2 TABLETS 2 TABLETS TAKE 2 e BY MOUTH BY MOUTH TABLETS BY EVERY DAY EVERY DAY MOUTH EVERY DAY Livalo 4 mg Livalo 4 mg No Livalo 4 [facility] tablet TAKE tablet TAKE mg tablet Family [...] tic ointment e nifedipine nifedipine No nifedipine [facility] 30 mg ER 30 mg ER 30 mg Fam gail tablet,exte tablet,exte tablet,ext Practic nded nded ended e release release release TAKE 1 TAKE 1 TAKE 1 TABLET BY TABLET BY TABLET BY MOUTH EVERY MOUTH EVERY MOUTH DAY DAY EVERY DAY Novolog Novolog No Novolog [facility] FlexPen FlexPen FlexPen Family U-100 U-100 U-100 Practic Insulin Insulin [...] 50 TDD 50 nystatin-tr nystatin-tr No nystatin-t [facility] iamcinolone iamcinolone riamcinolo Family 100,000 100,000 ne [...] ayed ayed layed e release release release TAKE 1 TAKE 1 TAKE 1 CAP(S) CAP(S) CAP(S) ORALLY ONCE ORALLY ONCE ORALLY A DAY 30 A DAY 30 ONCE A DAY MINUTES MINUTES 30 MINUTES BEFORE BEFORE BEFORE BREAKFAST BREAKFAST BREAKFAST 90 DAYS 90 DAYS 90 DAYS Premarin Premarin No Premarin Perry benny 0.625 [...] WEEK FOR 30 DAYS Soliqua Soliqua No Nic Manzanares e 100/33 100 100/33 [...] MORNING DIRECTED DIRECTED INCREASE DIRECTED valsartan valsartan valsartan [facility] 320 mg 320 mg 320 mg Family tablet TAKE tablet TAKE tablet Practic 1 TABLET BY 1 TABLET BY TAKE 1 e MOUTH EVERY MOUTH EVERY TABLET BY DAY DAY MOUTH EVERY DAY Vitamin D3 Vitamin D3 No Vitamin D3 [facility] Family Practic e Accu-Chek Accu-Chek No Accu-Chek [facility] Fior Meter Fior Meter Fior [facility] Meter Practic e Accu-Chek Accu-Chek No Accu-Chek [facility] Fior Plus Fior Plus Fior Plus Family test strips test strips test P ractic TEST 3 TEST 3 strips e TIMES A DAY TIMES A DAY TEST 3 DIRECTED DIRECTED TIMES A DAY DIRECTED Accu-Chek Accu-Chek No Accu-Chek [facility] Fastclix Fastclix Fastclix Fam gail Lancet Drum Lancet Drum Lancet Practic USE USE Drum USE e DIRECTED 3 DIRECTED 3 TIMES DAILY TIMES DAILY DIRECTED 3 TIMES DAILY Accu-Chek Accu-Chek No Accu-Chek [facility] FastClix FastClix FastClix Fam gail Lancing Lancing Lancing Practi c Device Device Device e acetaminoph acetaminoph No acetaminop [facility] en 300 en 300 hen 300 Family mg-codeine mg-codeine mg-codeine Pract[facility] 60 mg 60 mg 60 mg e tablet TAKE tablet TAKE tablet 1 TABLET BY 1 TABLET BY TAKE 1 MOUTH EVERY MOUTH EVERY TABLET BY 6 HOURS 6 HOURS MOUTH NEEDED NEEDED EVERY 6 HOURS NEEDED acyclovir acyclovir acyclovir [facility] 800 mg 800 mg 800 mg Family tablet tablet tablet Practic e alprazolam alprazolam alprazolam [facility] 0.25 mg 0.25 mg 0.25 mg Family [...] oral directed. directed. route as directed. BD BD No BD [facility] Ultra-Fine Ultra-Fine Ultra-Fine Family Shaina Pen Sahina Pen Shaina Pen Pra ctic Needle 32 Needle 32 Needle 32 e gauge x gauge x gauge x " USE " USE " USE DIRECTED DIRECTED 4 TIMES 4 TIMES DIRECTED 4 DAILY DAILY TIMES DAILY budesonide budesonide No budesonide [facility] 1 mg/2 mL 1 mg/2 mL 1 mg/2 mL [facility] suspension suspension suspension Practic for for for [...] TO TWICE DAILY carvedilol carvedilol No carvedilol [facility] 12.5 mg 12.5 mg 12.5 mg Family [...] - TWICE DAILY cinacalcet cinacalcet No cinacalcet [facility] 30 mg 30 mg 30 mg Family tablet TAKE tablet TAKE tablet Practic 1 TABLET BY 1 TABLET BY TAKE 1 e MOUTH TWICE MOUTH TWICE TABLET BY A DAY A DAY MOUTH TWICE A DAY clonidine clonidine No clonidine [facility] HCl 0.1 mg HCl 0.1 mg HCl [...] DIRECTED DIRECTED DIRECTED ezetimibe ezetimibe No ezetimibe [facility] 10 mg 10 mg 10 mg Family tablet TAKE tablet TAKE tablet Practic 1 TABLET BY 1 TABLET BY TAKE 1 e MOUTH EVERY MOUTH EVERY TABLET BY DAY DAY MOUTH EVERY DAY fluconazole fluconazole No fluconazol [facility] 150 mg 150 mg e 150 mg Family tablet 1 tablet 1 tablet 1 Pra ctic TABLET TABLET TABLET e ORALLY NOW, ORALLY NOW, ORALLY THEN AGAIN THEN AGAIN NOW, THEN IN 72 HOURS IN 72 HOURS AGAIN IN 4 DAY(S) 4 DAY(S) 72 HOURS 4 DAY(S) furosemide furosemide No furosemide [facility] 20 mg 20 mg 20 mg Family tablet TAKE tablet TAKE tablet Practic 1 TABLET BY 1 TABLET BY TAKE 1 e MOUTH EVERY MOUTH EVERY TABLET BY DAY DAY MOUTH EVERY DAY hydralazine hydralazine No hydralazin [facility] 25 mg 25 mg e 25 mg Family tablet TAKE tablet TAKE tablet Practic 1 TABLET BY 1 TABLET BY TAKE 1 e MOUTH THREE MOUTH THREE TABLET BY TIMES A DAY TIMES A DAY MOUTH THREE TIMES A DAY hydrocodone hydrocodone No [facility] 5 5 e 5 Family mg-acetamin mg-acetamin mg-acetami Practic ophen 325 ophen 325 nophen 325 e mg tablet mg tablet mg tablet TAKE 1 TAKE 1 TAKE 1 TABLET BY TABLET BY TABLET BY MOUTH EVERY MOUTH EVERY MOUTH 6 HOURS 6 HOURS EVERY 6 NEEDED NEEDED HOURS NEEDED hydrocodone hydrocodone No [facility] 7.5 7.5 e 7.5 Family mg-acetamin mg-acetamin mg-acetami Practic ophen 325 ophen 325 nophen 325 e mg tablet mg tablet mg tablet TAKE 1 TAKE 1 TAKE 1 TABLET BY TABLET BY TABLET BY MOUTH EVERY MOUTH EVERY MOUTH 8 HOURS 8 HOURS EVERY 8 NEEDED NEEDED HOURS NEEDED [facility] No 1 Q1D [facility] XR 5 XR 5 XR 5 [...] days. days. for 90 days. lisinopril lisinopril No lisinopril [facility] 20 mg 20 mg 20 mg Family [...] tic ointment e nifedipine nifedipine No nifedipine [facility] 30 mg ER 30 mg ER 30 mg Fam gail tablet,exte tablet,exte tablet,ext Practic nded nded ended e release release release TAKE 1 TAKE 1 TAKE 1 TABLET BY TABLET BY TABLET BY MOUTH EVERY MOUTH EVERY MOUTH DAY DAY EVERY DAY Novolog Novolog No Novolog [facility] FlexPen FlexPen FlexPen Family U-100 U-100 U-100 Practic Insulin Insulin [...] 50 TDD 50 nystatin-tr nystatin-tr No nystatin-t [facility] iamcinolone iamcinolone riamcinolo Family 100,000 100,000 ne [...] FOR 30 DAYS omeprazole omeprazole No omeprazole [facility] 20 mg 20 mg 20 mg Family capsule,del capsule,del capsule,de Practic ayed ayed layed e release 1 release 1 release 1 CAPSULE BY CAPSULE BY CAPSULE BY MOUTH MOUTH MOUTH DAILY, 30 DAILY, 30 DAILY, 30 MINUTES MINUTES MINUTES BEFORE BEFORE BEFORE BREAKFAST BREAKFAST BREAKFAST pregabalin pregabalin No 1capsul TID pregabalin [facility] 50 mg 50 mg e(s) 50 mg Family capsule capsule capsule Practi c Take 1 Take 1 Take 1 e capsule 3 capsule 3 capsule 3 times a day times a day times a by oral by oral day by route. route. oral route. pregabalin pregabalin No pregabalin [facility] 75 mg 75 mg 75 mg Family capsule capsule capsule Practi c TAKE 1 TAKE 1 TAKE 1 e CAPSULE BY CAPSULE BY CAPSULE BY MOUTH TWICE MOUTH TWICE MOUTH A DAY FOR A DAY FOR TWICE A 28 DAYS 28 DAYS DAY FOR 28 DAYS Premarin Premarin No Premarin Perry benny 0.625 [...] directed: TDD 60 valsartan valsartan No valsartan [facility] 320 mg 320 mg 320 mg Family tablet TAKE tablet TAKE tablet Practic 1 TABLET BY 1 TABLET BY TAKE 1 e MOUTH EVERY MOUTH EVERY TABLET BY DAY DAY MOUTH EVERY DAY Vitamin D3 Vitamin D3 No Vitamin D3 [place] [place] Practic e Immunizations Ordered Filled Immunization Date Status Comments Sourc e Immunization Name Name COVID-19, mRNA, COVID-19, mRNA, 2022-03-23 Completed [facility] LNP-S, bivalent LNP-S, bivalent 00:00:00 Prac alaina booster, PF, 30 booster, PF, 30 mcg/0.3 mL dose mcg/0.3 mL dose (Pfizer-BioNTech) - (Pfizer-BioNTech) - ML ML COVID-19, mRNA, COVID-19, mRNA, 2021-03-25 Completed [facility] LNP-S, PF, 30 LNP-S, PF, 30 00:00:00 Practice mcg/0.3 mL dose mcg/0.3 mL dose (Pfizer-BioNTech) - (Pfizer-BioNTech) - ML ML COVID-19, mRNA, COVID-19, mRNA, 2020-07-19 Completed Vill [...] dose (Pfizer-BioNTech) (Pfizer-BioNTech) COVID-19, mRNA, COVID-19, mRNA, 2020-07-15 Completed [facility] LNP-S, PF, 30 LNP-S, PF, 30 00:00:00 Practice mcg/0.3 mL dose mcg/0.3 mL dose (Pfizer-BioNTech) - (Pfizer-BioNTech) - ML ML PFIZER COVID-19 2020-07-15 Completed [facility]RNA VACCINATION 00:00:00 [facility] PFIZER COVID-19 2020-07-15 Completed [facility]RNA VACCINATION 00:00:00 [facility] PFIZER COVID-19 2020-07-15 Completed [facility] VACCINATION 00:00:00 [facility] COVID-19, mRNA, COVID-19, mRNA, 2020-07-15 Completed [facility] LNP-S, PF, 30 LNP-S, PF, 30 00:00:00 [facility] mcg/0.3 mL dose mcg/0.3 mL dose (Pfizer-BioNTech) (Pfizer-BioNTech) COVID-19, mRNA, COVID-19, mRNA, 2020-06-23 Completed [facility] LNP-S, PF, 30 LNP-S, PF, 30 00:00:00 Practice mcg/0.3 mL dose mcg/0.3 mL dose (Pfizer-BioNTech) - (Pfizer-BioNTech) - ML ML [facility] COVID-19 2020-06-23 Completed [facility] MRNA VACCINATION 00:00:00 [facility] PFIZER COVID-19 2020-06-23 Completed [facility] VACCINATION 00:00:00 [facility] PFIZER COVID-19 2020-06-23 Completed [facility] VACCINATION 00:00:00 [facility] COVID-19, mRNA, COVID-19, mRNA, 2020-06-23 Completed [facility] LNP-S, PF, 30 LNP-S, PF, 30 00:00:00 [facility] mcg/0.3 mL dose mcg/0.3 mL dose (Pfizer-BioNTech) (Pfizer-BioNTech) influenza, influenza, 2020-03-27 Completed [facility] injectable, injectable, 00:00:00 Practice quadrivalent quadrivalent influenza, influenza, 2020-03-27 Completed [facility] injectable, injectable, 00:00:00 Practice quadrivalent quadrivalent influenza, influenza, 2020-03-27 Completed [facility] Family injectable, injectable, 00:00:00 Practice quadrivalent quadrivalent influenza, influenza, 2020-03-27 Completed [facility] injectable, injectable, 00:00:00 Practice quadrivalent quadrivalent influenza, influenza, 2020-03-27 Completed [facility] Family injectable, injectable, 00:00:00 Practice quadrivalent quadrivalent Vital Signs Vital Name Observation Time Observation Value Comments Source BP Diastolic 2022-11-24 61 mm[Hg] [facility] 00:00:00 Practice Height 2022-11-24 65 [in_i] [facility] 00:00:00 Practice BMI (Body Mass 2022-11-24 31.1 kg/m2 [facility] Index) 00:00:00 Practice BP Systolic 2022-11-24 125 mm[Hg] [facility] 00:00:00 Practice Body Weight 2022-11-24 187 [lb_av] [facility] 00:00:00 Practice Height 2022-09-18 65 [in_i] [facility] 00:00:00 [facility] BP Diastolic 2022-08-22 58 mm[Hg] [facility] 00:00:00 Practice Height 2022-08-22 65 [in_i] [facility] 00:00:00 Practice BMI (Body Mass 2022-08-22 30.5 kg/m2 [facility]amil [facility] Index) 00:00:00 Practice BP Systolic 2022-08-22 124 mm[Hg] [facility] 00:00:00 Practice Body Weight 2022-08-22 183 [lb_av] [facility] 00:00:00 Practice BP Diastolic 2022-05-23 77 mm[Hg] [facility] 00:00:00 Practice Height 2022-05-23 65 [in_i] [facility] 00:00:00 Practice BMI (Body Mass 2022-05-23 33.8 kg/m2 [facility] Index) 00:00:00 Practice BP Systolic 2022-05-23 156 mm[Hg] [facility] 00:00:00 Practice Body Weight 2022-05-23 203 [lb_av] [facility] 00:00:00 Practice BP Diastolic 2022-04-17 80 mm[Hg] [facility] 00:00:00 Practice Height 2022-04-17 65 [in_i] [facility] 00:00:00 Practice BMI (Body Mass 2022-04-17 34.8 kg/m2 [facility] Index) 00:00:00 Practice BP Systolic 2022-04-17 169 mm[Hg] [facility] 00:00:00 Practice Body Weight 2022-04-17 209 [lb_av] [facility] 00:00:00 Practice Height 2022-03-09 65 [in_i] [...] Family 00:00:00 Practice Height 2020-04-14 65 [in_i] [facility] Family 00:00:00 Practice BMI (Body Mass 2020-04-14 33.6 kg/m2 [facility] Famil y Index) 00:00:00 Practice BP Systolic 2020-04-14 130 mm[Hg] [facility] Family 00:00:00 Practice Body Weight 2020-04-14 202 [lb_av] [facility] 00:00:00 Practice Body height 2022-12-13 165.1 cm [facility] 20:07:00 [facility] Body weight 2022-12-13 99.791 kg [facility] 20:07:00 [facility] BMI 2022-12-13 36.61 kg/m2 [facility] 20:07:00 [facility] Systolic blood 2020-01-26 144 mm[Hg] Location: [facility] Physicia ns pressure 14:56:00 Position: Sitting Diastolic blood 2020-01-26 66 mm[Hg] Location: [facility] Physici ans pressure 14:56:00 Position: Sitting Body [...] cians 14:56:00 Temperature Oral 2016-02-14 97.5 F [facility] Manolo rmann (F) 21:00:00 Heart Rate 2016-02-14 Elvira Rodriguezan n 21:00:00 Respitory Rate 2016-02-14 Elvira Herm robert 21:00:00 Systolic (mm Hg) 2016-02-14 [facility] [place] rmann 21:00:00 Diastolic (mm Hg) 2016-02-14 [facility] 21:00:00 Systolic (mm Hg) 2016-02-14 [facility] 17:00:00 Diastolic (mm Hg) 2016-02-14 [facility] 17:00:00 Respitory Rate 2016-02-14 [facility] ro[facility] 17:00:00 Temperature Oral 2016-02-14 97.6 F [facility] Manolo rmann (F) 17:00:00 Heart Rate 2016-02-14 [facility] Richard n 17:00:00 Temperature Oral 2016-02-14 97.8 F [facility]olo rmann (F) 13:00:00 Respitory Rate 2016-02-14 [facility] ro[facility] 13:00:00 Heart Rate 2016-02-14 [facility] n 13:00:00 Systolic (mm Hg) 2016-02-14 [facility] 13:00:00 Diastolic (mm Hg) 2016-02-14 [facility] 13:00:00 Weight 2016-02-10 [facility] n 22:04:00 Weight 2016-02-08 [facility] n 20:54:00 BMI Calculated 2016-02-08 [facility]ret 20:54:00 Height 2016-02-08 165.1 cm [facility] 20:54:00 Weight 2016-02-08 [facility] n 18:23:00 Height 2016-02-08 172.72 cm [facility] 18:23:00 BMI Calculated 2016-02-08 [facility] 18:23:00 Respitory Rate 2016-01-19 [facility] 17:00:00 Systolic (mm Hg) 2016-01-19 [facility] 17:00:00 Diastolic (mm Hg) 2016-01-19 [facility] 17:00:00 Temperature Oral 2016-01-19 98.1 F [facility] Manolo rmann (F) 17:00:00 Heart Rate 2016-01-19 [facility] 17:00:00 Weight 2016-01-19 [facility] 13:10:00 Temperature Oral 2016-01-19 99.5 F [facility] Manolo rmann (F) 13:00:00 Heart Rate 2016-01-19 [facility] [...] robert 09:00:00 Temperature Oral 2016-01-19 97.3 F [facility] rmann (F) 09:00:00 BMI Calculated 2016-01-11 [facility] 22:27:00 Weight 2016-01-11 [facility] n 22:27:00 Height 2016-01-11 165.1 cm [facility] n 22:27:00 Respitory Rate 2012-10-06 [facility] robert 16:00:00 Systolic (mm Hg) 2012-10-06 [facility] rmann 16:00:00 Diastolic (mm Hg) 2012-10-06 [facility] ermann 16:00:00 Respitory Rate 2012-10-06 [facility]bert 15:00:00 Systolic (mm Hg) 2012-10-06 [facility] rmann 15:00:00 Diastolic (mm Hg) 2012-10-06 [facility] ermann 15:00:00 Systolic (mm Hg) 2012-10-06 [facility] rmann 14:00:00 Diastolic (mm Hg) 2012-10-06 [facility] ermann 14:00:00 Respitory Rate 2012-10-06 [facility] robert 14:00:00 Temperature Oral 2012-10-06 96.3 F [facility] rmann (F) 08:33:00 Temperature Oral 2012-10-06 97.9 F [facility] rmann (F) 04:00:00 Temperature Oral 2012-10-05 97.6 F [facility] rmann (F) 09:05:00 Weight 2012-10-03 [facility] 23:01:00 Height 2012-10-03 165.1 cm [facility] 23:01:00 Heart Rate 2012-10-03 [facility] 14:28:00 Heart Rate 2012-10-01 [facility] 18:53:00 Height 2012-10-01 165.1 cm [facility] 18:53:00 Weight 2012-10-01 [facility] 18:53:00 Procedures Procedure Date / Time Performing Clinician Source Performed LIPID PANEL 2022-09-26 00:00:00 Provider, Not In [facility] XR, shoulder, 2 or more 2022-09-18 00:00:00 Dickson ea Orthopedic view Sports Medicine XR, knee, 3 view 2022-09-18 00:00:00 Arlin Damico opedic Sports Medicine EXTERNAL PROVIDER 2022-08-28 05:01:00 Doctor Unassigned, No [facility] ASSIGNMENT OF BENEFITS 2022-08-04 15:37:10 Doctor Unassigned, No [facility] Name Medical Branch PHYSICIAN ORDERS 2022-07-25 06:01:00 Doctor Unassigned, No Unive [facility] Name Medical Branch XR, hip + pelvis, 2022-03-09 00:00:00 Arlin Shultz hopedic unilateral, 4 or more Sports Med icine view Back Surgery 2016-01-17 00:00:00 [facility] Chas lester Practice Knee Replacement 2014-08-16 00:00:00 [facility] Durag reynolds Practice Operation on Neck 2012-09-16 00:00:00 [facility] Gustavo lanza Practice Repair of Perforated 2012-03-18 00:00:00 [facility] Colon Practice Colonoscopy 2010-06-18 00:00:00 [facility] Chas lester Practice Operation <sup>1</sup> [facility] Cervical discectomy [facility] Knee [facility] Seminary replacement<sup>1</sup> Operation<sup>2</sup> [facility] Plan of Care Planned Activity Planned Date Details Comments Source Future Scheduled Test 2022-12-16 SHINGLES VACCINES (1 [facility] 12:11:42 of 2) [code = SHINGLES VACCINES (1 of 2)] Future Scheduled Test 2022-12-16 COVID-19 VACCINE (4 - [facility] 12:11:42 Pfizer series) [code = COVID-19 VACCINE (4 - Pfizer series)] Future Scheduled Test 2022-12-16 65+ PNEUMOCOCCAL [facility] 12:11:42 VACCINE (2 - PCV) [code = 65+ PNEUMOCOCCAL VACCINE (2 - PCV)] Future Scheduled Test 2022-12-16 INFLUENZA VACCINE [facility] 12:11:42 [code = INFLUENZA VACCINE] Diagnostic Test 2022-11-24 glucose, fingerstick, Perry zapata Family Pending 00:00:00 blood [code = Practice glucose, fingerstick, blood] Future Scheduled Test 2022-09-07 SHINGLES VACCINES (1 [facility] 11:04:32 of 2) [code = SHINGLES VACCINES (1 of 2)] Future Scheduled Test 2022-09-07 COVID-19 VACCINE (3 - [facility] 11:04:32 Booster for Pfizer series) [code = COVID-19 VACCINE (3 - Booster for Pfizer series)] Future Scheduled Test 2022-09-07 INFLUENZA VACCINE [facility] 11:04:32 [code = INFLUENZA VACCINE] Future Scheduled Test 2022-09-07 65+ PNEUMOCOCCAL [facility] 11:04:32 VACCINE (2 - PCV) [code = 65+ PNEUMOCOCCAL VACCINE (2 - PCV)] Future Scheduled Test 2022-07-13 SHINGLES VACCINES (1 [facility] 16:05:49 of 2) [code = SHINGLES VACCINES (1 of 2)] Future Scheduled Test 2022-07-13 COVID-19 VACCINE ([address] [place] [address] 16:05:49 Booster for Pfizer series) [code = COVID-19 VACCINE (3 - Booster for Pfizer series)] Future Scheduled Test 2022-07-13 INFLUENZA VACCINE [facility] 16:05:49 [code = INFLUENZA VACCINE] Future Scheduled Test 2022-07-13 65+ PNEUMOCOCCAL [facility] 16:05:49 VACCINE (2 - PCV) [code = 65+ PNEUMOCOCCAL VACCINE (2 - PCV)] Future Appointment 2023-05-26 Santi Patton [place] 00:00:[address] Practice [address], [place] [address] Future Appointment 2023-05-25 Santi Patton [facility] Family 10:45:[address]; Practice [address], [place] [address] Instructions Arlin Orthoped ic Sports Medicine Encounters Start End Encounter Admission Attending Care Care Encounter Source Date/Time Date/Time Type Type Clinicians Facility Department ID 2022-11-21 Outpatient [facility] [id number] [place] 11:59:30 [id number] [facility] 2020-10-23 Outpatient ISMA, [facility] [id number] [place] 03:35:09 [facility] 2022-12-13 2022-12-13 Procedure Aravind, 1.2.840.1 [id number] Methodi 15:15:00 16:47:44 visit Alex 10448.1.[address] [place] 3.430.2.7 Hospit a .3.078115 l .8 2022-12-13 2022-12-13 [facility] [id number] 00:00:00 00:00:00 ALEX [address] 2022-11-24 2022-11-24 Outpatient Daniel_T VFP VFP [id number] [address] [place] [address] 00:00:00 00:00:00 [id number] Family Practic e 2022-11-24 2022-11-24 Outpatient Daniel_T VFP VFP [id number] [address] [place] [address] 00:00:00 00:00:00 [id number] Family Practic e 2022-11-24 2022-11-24 Carson VFP [place] - [id number] V illage 00:00:00 00:00:00 [facility] Charity Sheldon - Pracedin yousif MD: [id number] [place] - e Shadow VM_HOU_[facility], [address], [place] [address] , Ph. 2022-10-25 2022-10-25 Outpatient Daniel_T VFP VFP [id number] [address] [place] [address] 00:00:00 00:00:00 [id number] Family Practic e 2022-10-25 2022-10-25 Outpatient Daniel_T VFP VFP [id number] [address] [place] [address] 00:00:00 00:00:00 [id number] Family Practic e 2022-09-26 2022-09-26 Orders Provider, 1.2.840.1 [id number] Methodi 00:00:00 00:00:00 Only [place] [address].1.[address] System 3.430.2.7 Hospit a .3.556653 l .8 2022-09-26 2022-09-26 Telephone Fidencio 1.2.840.1 [id number] 21 [id number] Methodi 00:00:00 00:00:[address] 3.430.2.7 Hospit a .3.824596 l .8 2022-09-18 2022-09-18 Outpatient FOG_Elkousy AOSM AOSM 623 [id number] Arlin 00:00:00 00:00:00 _Gato 119966 Orth ope dic Sports Medicin e 2022-09-18 2022-09-18 Vaibhav A AOSM [place] - Ortho [id number] [place] 00:00:00 00:00:00 Laura Tello MD: 7401 FOG_Ofc dic [facility] Sp[place], [place] [address] , Ph. [phone] 2022-09-06 2022-09-06 Telephone Fidencio 1.2.840.1 [id number] 21 [id number] Methodi 00:00:00 00:00:[address] 3.430.2.7 Hospit a .3.523595 l .8 2022-09-06 2022-09-06 Telephone Fidencio 1.2.840.1 [id number] 21 [id number] Methodi 00:00:00 00:00:[address] 3.430.2.7 Hospit a .3.117397 l .8 2022-08-28 2022-08-28 Orders Doctor NORMA 1.2.840.114 [id number] Univers 00:00:00 00:00:00 Only Unassigned, GLEN 350.1.13.10 ity of [place] [facility] 4.2.7.2.686 Kwame as [phone] [place] [address] Branch 2022-08-24 2022-08-24 Outpatient FOG_Elkousy AOSM AOSM 623 [id number] Arlin 00:00:00 00:00:00 _Gato 643005 Orth ope dic Sports Medicin e 2022-08-22 2022-08-22 Outpatient Daniel_T VFP VFP [id number] 20 [facility] 00:00:00 00:00:00 [id number] Family Practic e 2022-08-22 2022-08-22 Outpatient Daniel_T VFP VFP [id number] [address] [place] [address] 00:00:00 00:00:00 [id number] Family Practic e 2022-08-22 2022-08-22 Outpatient VFP VFP [id number] [facility] 00:00:00 00:00:00 [id number] Family Practic e 2022-08-22 2022-08-22 Carson VFP [place] - [id number] V illage 00:00:00 00:00:00 [facility]theo [facility] Family Pito, Medical - Pracedin yousif MD: 74226 [place] - e Shadow VM_HOU_[place] [place] [address], [address], [place] [address] , Ph. 2022-08-21 2022-08-21 [facility]phone [facility] 1.2.840.114 10 [id number] Univers 00:00:00 00:00:00 [facility] 350.1.13.10 it y of [place] 4.2.7.2.686 Kwame as KRISH?BLEA [phone] [address] OFFICE [facility] 2022-08-04 2022-08-04 Office [facility] 1.2.723.503 [id number] Univers 10:00:00 10:21:24 Visit [facility] 350.1.13.10 it y of [place] 4.2.7.2.686 Kwame as KRISH?BLEA [phone] [address] OFFICE [facility] 2022-08-04 2022-08-04 Outpatient R MONITHE [facility] [id number] Univers 10:00:00 10:21:24 CHUCHO ity of [facility] 2022-08-04 2022-08-04 Orders Doctor NORMA 1.2.840.114 [id number] Univers 00:00:00 00:00:00 Only Unassigned, GLEN 350.1.13.10 ity of [place] [facility] 4.2.7.2.686 Kwame as [phone] [address] 2022-07-29 2022-07-29 Outpatient FOG_Elkousy AOSM AOSM 623 2176-20 Arlin 00:00:00 00:00:00 _Gato 974029 Orth ope dic Sports Medicin e 2022-07-25 2022-07-25 Orders Doctor NORMA 1.2.840.114 [id number] Univers 00:00:00 00:00:00 Only Unassigned, GLEN 350.1.13.10 ity of [place] [facility] 4.2.7.2.686 Kwame as [id number] [address] 2022-07-20 2022-07-20 Refill [place], 1.2.840.1 [id number] 1611 Methodi 00:00:00 00:00:[address] 3.430.2.7 Hospit a .3.598241 l .8 2022-07-20 2022-07-20 Refill [place], 1.2.840.1 [id number] 718712 2618 Methodi 00:00:00 00:00:[address] 3.430.2.7 Hospit a .3.808981 l .8 2022-07-13 2022-07-13 Outpatient R MONI, [facility] [id number] Univers 00:00:00 00:00:00 CHUCHO itarash [facility] 2022-07-05 2022-07-05 Refill [place], 1.2.840.1 [id number] 4954 Methodi 00:00:00 00:00:[address] 3.430.2.7 Hospit a .3.430462 l .8 2022-07-05 2022-07-05 Refill [place], 1.2.840.1 [id number] [id number] 2919 Methodi 00:00:00 00:00:[address] 3.430.2.7 Hospit a .3.853522 l .8 2022-06-11 2022-06-11 Refill [place], 1.2.840.1 [id number] 2670 Methodi 00:00:00 00:00:[address] 3.430.2.7 Hospit a .3.718832 l .8 2022-06-11 2022-06-11 Refill [place], 1.2.840.1 [id number] [id number] 3506 Methodi 00:00:00 00:00:[address] 3.430.2.7 Hospit a .3.613518 l .8 2022-05-23 2022-05-23 Outpatient Daniel_T VFP VFP [id number] 20 [facility] 00:00:00 00:00:00 [id number] Family Practic e 2022-05-23 2022-05-23 Outpatient Daniel_T VFP VFP [id number] [address] [place] [address] 00:00:00 00:00:00 [id number] Family Practic e 2022-05-23 2022-05-23 Carson VFP [place] - [id number] V illage 00:00:00 00:00:00 [facility] Pito, Charity - Practi nica WARD: 16614 [place] - e Shadow VM_HOU_[facility], [address], [place] [address] , Ph. 2022-05-09 2022-05-09 Orders [place], 1.2.840.1 [id number] 4987 Methodi 00:00:00 00:00:00 Only Lora Yee 86121.1.[address] 3.430.2.7 Hospit a .3.144892 l .8 2022-05-09 2022-05-09 Orders [place], 1.2.840.1 [id number] 7731 Methodi 00:00:00 00:00:00 Only Lora Yee 97413.1.[address] 3.430.2.7 Hospit a .3.486534 l .8 2022-05-07 2022-05-07 Refill [place], 1.2.840.1 [id number] 4501 Methodi 00:00:00 00:00:[address] 3.430.2.7 Hospit a .3.368455 l .8 2022-05-07 2022-05-07 Refill [place], 1.2.840.1 [id number] 9481 Methodi 00:00:00 00:00:[address].1.[address] 3.430.2.7 Hospit a .3.141900 l .8 2022-04-17 2022-04-17 Outpatient Daniel_T VFP VFP [id number] [address] [place] [address] 00:00:00 00:00:00 [id number] Family Schuyler e 2022-04-17 2022-04-17 Carson VFP [place] - [id number] V illage 00:00:00 00:00:00 [facility] Family SheldonCharity - Practi nica WARD: 25569 [place] - e Shadow [facility], [address], [place] [address] , Ph. 2022-04-14 2022-04-14 Outpatient Pito_T VFP VFP [id number] [address] [place] [address] 00:00:00 00:00:00 [id number] Family Schuyler e 2022-04-10 2022-04-10 Orders [place], 1.2.840.1 [id number] 5056 Methodi 00:00:00 00:00:00 Only Lora TorresNick 86738.1.[address] 3.430.2.7 Hospit a .3.567438 l .8 2022-04-10 2022-04-10 Orders [place], 1.2.840.1 [id number] 3133 Methodi 00:00:00 00:00:00 Only Lora BrianNick 79100.1.[address] 3.430.2.7 Hospit a .3.999393 l .8 2022-04-09 2022-04-09 Refill [place], 1.2.840.1 [id number] 6747 Methodi 00:00:00 00:00:[address] 3.430.2.7 Hospit a .3.703627 l .8 2022-04-09 2022-04-09 Refill [place], 1.2.840.1 [id number] 883177 0254 Methodi 00:00:00 00:00:00 Lora Yee 77338.1.1 [facility] 3.430.2.7 [facility].974508 l .8 2022-03-09 2022-03-09 Outpatient FOG_Elkousy AOSM AO [address] [place] 00:00:00 00:00:00 _Gato 608010 Orth ope dic Sports Medicin e 2022-03-09 2022-03-09 Nely M AOSM [place] - Ortho 2021 [address] [place] 00:00:00 00:00:00 Laura Andrews MD: 7401 FOG_Ofc dic [facility] Spo [facility] [place], [place] [address] , Ph. [phone] 2022-03-06 2022-03-06 Outpatient FOG_Elkousy AOSM AO [address] [place] 00:00:00 00:00:00 _Gato 990077 Orth ope dic Sports Medicin e 2022-02-16 2022-02-16 Outpatient Daniel_T VFP VFP [id number] 20 [facility] 00:00:00 00:00:00 [id number] Family Practic e 2022-02-16 2022-02-16 Outpatient VFP VFP [id number] 20 [facility] 00:00:00 00:00:00 [id number] Family Practic e 2022-02-16 2022-02-16 Outpatient VFP VFP [id number] -20 [facility] 00:00:00 00:00:00 [id number] Family Practic e 2022-02-06 2022-02-06 Outpatient Daniel_T VFP VFP [id number] 420 [facility] 00:00:00 00:00:00 [id number] Family Practic e 2022-02-01 2022-02-01 Outpatient Daniel_T VFP VFP [id number] 420 [facility] 00:00:00 00:00:00 [id number] Family Practic e 2022-02-01 2022-02-01 Carson VFP [place] - [id number] V illage 00:00:00 00:00:00 [place] Family SheldonCharity - Pracedin yousif MD: 79123 VM_HOU_Shad e [address], [place] [address] , Ph. 2022-01-25 2022-01-25 Outpatient Nicolasel_T VFP VFP [id number] [address] [place] [address] 00:00:00 00:00:00 [id number] Family Practic e 2022-01-04 2022-01-04 Outpatient Daniel_T VFP VFP [id number] [address] [place] [address] 00:00:00 00:00:00 [id number] Family Practic e 2021-12-29 2021-12-29 Outpatient FOG_Elkousy AOSM AOSM [address] [place] 02:36:00 02:36:00 _Gato 803048 Orth ope dic Sports Medicin e 2021-12-29 2021-12-29 Roger Burk AOSM [place] - Ortho [place] 00:00:00 00:00:00 MD Jewel: Laura Maravilla - Orthope [address] FOG_Ofc dic [facility], [place] [address] , Ph. [phone] 2021-12-29 2021-12-29 Outpatient GARFIELD Holloway [id number] [id number] 00:00:00 00:00:00 Roger Burk [id number] 2021-12-24 2021-12-24 Outpatient FOG_Elkousy AOSM AOSM 623 6- [place] 02:19:00 02:19:00 _Gato 989730 Orth ope dic Sports Medicin e 2021-12-24 2021-12-24 Outpatient FOG_Elkousy AOSM AOSM 623 6- [place] 02:19:00 02:19:00 _Gato 547183 Orth ope dic Sports Medicin e 2021-12-23 2021-12-23 Outpatient Daniel_T VFP VFP [id number] [address] [place] [address] 10:31:00 10:31:00 [id number] Family Practic e 2021-12-23 2021-12-23 Carson VFP [place] - [id number] V illage 00:00:00 00:00:00 Diltheo [facility] Family Pito, Charity - Pracedin yousif MD: 71139 VM_JUAN M_Roly e [address], [address], [place] [address] , Ph. 2021-12-16 2021-12-16 Outpatient VIRGINIA Castaneda HCATO PAIN [id number] [facility] 10:15:00 10:15:00 [place] 06 [place] [facility] 2021-11-28 2021-11-28 Office Summer MAGDALENA 6400 1.2.456.309 8435 [address]689 [place] 10:30:00 10:50:33 Visit Joby GOLDBERG 350.1.13.58 Health 9.2.7.2.686 [id number] 5 2021-11-28 2021-11-28 Outpatient FOG_Elkousy AOSM AOSM 623 2176-20 [place] 04:52:00 04:52:00 _Gato 368434 Orth ope dic Sports Medicin e 2021-11-24 2021-11-24 Outpatient FOG_Elkousy AOSM AOSM 623 2176-20 [place] 11:55:00 11:55:00 _Gato 924746 Orth ope dic Sports Medicin e 2021-11-23 2021-11-23 Outpatient FOG_Elkousy AOSM AOSM 623 2176-20 [place] 01:50:00 01:50:00 _Gato 997227 Orth ope dic Sports Medicin e 2021-11-23 2021-11-23 Houtan A AOSM [place] - Ortho [place] 00:00:00 00:00:00 MD Jewel: Laura Maravilla - Orthope [address] FOG_Ofc dic [place], [place] [facility] [address], [place] [address] , Ph. [phone] 2021-11-23 2021-11-23 Outpatient GARFIELD Holloway AOSM [id number] 00:00:00 00:00:00 Roger Burk [id number] 2021-11-23 2021-11-23 Telephone Whitley Bryson [facility] 1.2.840. 114 [id number] [place] 00:00:00 00:00:00 Whitley Bryson 350.1.13.58 Health [place] 9.2.7.2.686 [facility] [id number] 2 2021-11-18 2021-11-18 Outpatient FOG_Elkousy AOSM AOSM 623 [id number] [place] 12:41:00 12:41:00 _Gato 761785 Orth ope dic Sports Medicin e 2021-11-18 2021-11-18 Outpatient FOG_Elkousy AOSM AOSM 623 [id number] [place] 12:41:00 12:41:00 _Gato 119033 Orth ope dic Sports Medicin e 2021-11-17 2021-11-17 Outpatient Daniel_T VFP VFP [id number] [address] [place] [address] 06:56:00 06:56:00 [id number] Family Practic e 2021-11-07 2021-11-07 Travel 1.2.840.1 1.2.915.558 2243 [id number] Method 00:00:00 00:00:[address] 3.430.2.7 0.2.7.3.698 spita .3.322563 084.8 l .8 2021-10-19 2021-10-19 Outpatient Daniel_T VFP VFP [id number] [address] [place] [address] 06:10:00 06:10:00 [id number] Family Practic e 2021-10-04 2021-10-04 Outpatient Daniel_T VFP VFP [id number] [address] [place] [address] 03:48:00 03:48:00 [id number] Family Practic e 2021-10-04 2021-10-04 Carson VFP [place] - [id number] V illage 00:00:00 00:00:00 [facility] Family Charity Sheldon - Practi nica WARD: 57378 ANDREIA_Fe e Shadow ow [facility], [address], [place] [address] , Ph. 2021-08-26 2021-08-26 Outpatient Daniel_T VFP VFP [id number] 4-20 [facility] 08:52:00 08:52:00 [id number] Family Practic e 2021-08-09 2021-08-09 Outpatient Daniel_T VFP VFP [id number] [address] [place] [address] 12:16:00 12:16:00 [id number] Family Practic e 2021-08-04 2021-08-04 Outpatient Daniel_T VFP VFP [id number] 20 [facility] 03:46:00 03:46:00 [id number] Family Practic e 2021-08-04 2021-08-04 Carson VFP [place] - [id number] V illage 00:00:00 00:00:00 [facility] Family SheldonCharity - Pracedin yousif MD: 46263 VM_HOU_Eulaliod e Shadow [facility], [address], [place] [address] , Ph. 2021-07-18 2021-07-18 Orders [place], 1.2.840.1 [id number] Methodi 00:00:00 00:00:00 Only Lora Yee 63166.1.[address] 3.430.2.7 Hospit a .3.280250 l .8 2021-07-15 2021-07-15 Refill [place], 1.2.840.1 [id number] 0527 Methodi 00:00:00 00:00:[address] 3.430.2.7 Hospit a .3.477633 l .8 2021-07-13 2021-07-13 Orders [place], 1.2.840.1 [id number] 7575 Methodi 00:00:00 00:00:00 Only Lora Yee [address]649.1.[address] 3.430.2.7 Hospit a .3.864690 l .8 2021-07-13 2021-07-13 Jluis Quinones, 1.2.840.1 [id number] 7565 Method 00:00:00 00:00:00 Lora Yee 60619.1.1 759 3.430.2.7 Hospit a .3.222077 l .8 2021-06-22 2021-06-22 Outpatient Daniel_T VFP VFP [id number] [address] [place] [address] 02:42:00 02:42:00 [id number] Family Practic e 2021-05-23 2021-05-23 Outpatient Daniel_T VFP VFP [id number] [address] [place] [address] 06:17:00 06:17:00 [id number] Family Practic e 2021-05-23 2021-05-23 Outpatient Daniel_T VFP VFP [id number] [address] [place] [address] 06:17:00 06:17:00 [id number] Family Practic e 2021-04-15 2021-04-15 Outpatient Daniel_T VFP VFP [id number] [address] [place] [address] 01:48:00 01:48:00 [id number] Family Practic e 2021-04-15 2021-04-15 Carson VFP [place] - [id number] V illage 00:00:00 00:00:00 [facility] Family Sheldon Medical - Pracedin yousif MD: 43514 VM_JUAN M_Roly e [facility], [address], [place] [address] , Ph. 2021-02-24 2021-02-24 Outpatient Daniel_T VFP VFP [id number] [address] [place] [address] 03:30:00 03:30:00 [id number] Family Practic e 2021-01-22 2021-01-22 Outpatient Daniel_T VFP VFP [id number] [address] [place] [address] 09:37:00 09:37:00 [id number] Family Practic e 2021-01-20 2021-01-20 Outpatient Daniel_T VFP VFP [id number] [address] [place] [address] 06:26:00 06:26:00 [id number] Family Practic e 2021-01-20 2021-01-20 Carson VFP [place] - [id number] V illage 00:00:00 00:00:00 [facility] Family Sheldon, Medical - Pracedin yousif MD: 84561 ANDREIA_JUAN M_Roly e Shadow ow [facility] [address], [address], [place] [address] , Ph. 2020-11-13 2020-11-13 Outpatient Daniel_T VFP VFP [id number] [address] [place] [address] 02:42:00 02:42:00 [id number] Family Practic e 2020-11-13 2020-11-13 Outpatient Daniel_T VFP VFP [id number] [address] [place] [address] 02:42:00 02:42:00 [id number] Family Practic e 2020-11-13 2020-11-13 Outpatient Daniel_T VFP VFP [id number] [address] [place] [address] 02:42:00 02:42:00 [id number] Family Practic e 2020-11-13 2020-11-13 Outpatient Daniel_T VFP VFP [id number] [address] [place] [address] 02:42:00 02:42:00 [id number] Family Practic e 2020-10-15 2020-10-15 Outpatient Daniel_T VFP VFP [id number] [address] [place] [address] 02:19:00 02:19:00 [id number] Family Practic e 2020-10-14 2020-10-14 Outpatient Daniel_T VFP VFP [id number] [address] [place] [address] 11:20:00 11:20:00 [id number] Family Practic e 2020-10-14 2020-10-14 [place] [facility] [place] - [id number] V illage 00:00:00 00:00:00 [facility] Family SheldonCharity - Matteo yousif MD: [id number] Lizbeth e Shadow ow [facility] [address], [place] [address] , Ph. 2020-07-16 2020-07-16 Outpatient Daniel_T VFP VFP [id number] [address] [place] [address] 06:12:00 06:12:00 [id number] Family Practic e 2020-07-15 2020-07-15 Outpatient [facility] [id number] [address] [place] [address] 00:00:00 00:00:[id number] 2020-07-14 2020-07-14 Outpatient Daniel_T VFP VFP [id number] [address] [place] [address] 01:44:00 01:44:00 [id number] Family Practic e 2020-07-14 2020-07-14 [place] [facility] [place] - [id number] V illage 00:00:00 00:00:00 [facility]theo [facility] Family SheldonCharity - Matteo yousif MD: [id number] VM_HOU_Eulaliod e Shadow [facility], [facility] [address], [place] [address] , Ph. 2020-07-13 2020-07-13 Outpatient Daniel_T VFP VFP [id number] [address] [place] [address] 06:05:00 06:05:00 [id number] Family Practic e 2020-06-23 2020-06-23 Outpatient [facility] [id number] [address] [place] [address] 00:00:00 00:00:[address] 2020-04-30 2020-04-30 Outpatient Daniel_T VFP VFP [id number] [address] [place] [address] 01:32:00 01:32:00 [id number] Family Practic e 2020-04-24 2020-04-24 Outpatient Daniel_T VFP VFP [id number] [address] [place] [address] 03:48:00 03:48:00 Family Practic e 2020-04-14 2020-04-14 Outpatient Daniel_T VFP VFP [id number] [address] [place] [address] 04:51:00 04:51:00 [id number] Family Practic e 2020-04-14 2020-04-14 [place] [facility] [place] - [id number] V illage 00:00:00 00:00:00 [facility]theo [facility] Family SheldonCharity - Matteo yousif MD: [id number] VM_HOU_Nicolas e Shadow [facility], [facility] [address], [place] [address] , Ph. 2020-03-15 2020-03-15 Outpatient Daniel_T VFP VFP [id number] [address] [place] [address] 10:19:00 10:19:00 [id number] Family Practic e 2020-01-26 2020-01-26 Zoya ASHBY [facility] Cardiology [id number] [place] 15:15:00 15:15:00 t; MICHAEL ASHBY, [facility] [place] 2019-12-03 2019-12-03 Outpatient SARAH [facility] [id number] [place] 00:00:00 00:00:00 LORA Floyd Edmund polina 2016-06-30 2016-06-30 Outpatient MHIE MHIE [id number] Memoria 13:00:00 13:00:00 09 sierra Butler 2016-06-30 2016-06-30 Outpatient MHIE MHIE [id number] Memoria 13:00:00 13:00:00 09 sierra Butler 2016-04-21 2016-04-21 Outpatient MHIE MHIE [id number] Memoria 13:30:00 13:30:00 07 sierra Butler 2016-04-21 2016-04-21 Outpatient MHIE MHIE [id number] Memoria 13:30:00 13:30:00 07 sierra Butler 2016-03-27 2016-03-27 Outpatient MHIE MHIE [id number] Memoria 11:30:00 11:30:00 08 sierra Butler 2016-03-27 2016-03-27 Outpatient MHIE MHIE [id number] Memoria 11:30:00 11:30:00 08 sierra Butler 2016-03-09 2016-03-09 Outpatient MHIE MHIE [id number] Memoria 11:00:00 11:00:00 06 sierra Butler 2016-03-09 2016-03-09 Outpatient MHIE MHIE [id number] Memoria 11:00:00 11:00:00 06 sierra Butler 2016-02-08 2016-02-15 Inpatient nullFlavo [facility] [id number] Memoria 15:51:00 01:30:00 r Luke 00 [facility] 2016-02-08 2016-02-15 [id number] [facility] 15:51:00 01:30:00 r Seminary 00 [facility] 2016-02-08 2016-02-14 Outpatient Riley Whyte [facility] [id number] 10:51:00 20:30:00 Jese 2016-02-08 2016-02-08 Outpatient MHIE MHIE [id number] Memoria 07:30:00 07:30:00 05 sierra Butler 2016-02-08 2016-02-08 Outpatient MHIE MHIE [id number] Memoria 07:30:00 07:30:00 05 sierra [facility] 2016-01-11 2016-01-19 Inpatient nullFlavo [facility] [id number] Memoria 21:33:00 21:30:00 r Seminary [address] [place] [address] 2016-01-11 2016-01-19 Inpatient nullFlavo [facility] [id number] Memoria 21:33:00 21:30:[address] 2016-01-11 2016-01-19 Outpatient Coreen [facility] [id number] 16:33:00 16:30:00 Jean Paul Quiroga 2016-01-17 2016-01-17 Outpatient MHIE MHIE [id number] Memoria 11:00:00 11:00:00 04 sierra [facility]inary 2016-01-17 2016-01-17 Outpatient MHIE MHIE [id number] Memoria 11:00:00 11:00:00 04 sierra [facility] 2016-01-11 2016-01-11 Pre Admit nullFlavo [facility] [id number] Memoria 04:00:00 04:00:00 r Luke [address] [place] [address] 2016-01-11 2016-01-11 Pre Admit nullFlavo [facility] [id number] Memoria 04:00:00 04:00:[address] 2016-01-10 2016-01-10 Outpatient Ranjit Drew [facility] [id number] 23:00:00 23:00:00 Peterson Witt 2015-12-15 2015-12-15 Outpatient MHIE MHIE [id number] Memoria 14:00:00 14:00:00 03 [facility] 2015-12-15 2015-12-15 Outpatient MHIE MHIE [id number] Memoria 14:00:00 14:00:00 03 sierra RodriguezLuke 2015-12-15 2015-12-15 Outpatient MHIE MHIE [id number] Memoria 13:30:00 13:30:00 02 sierra RodriguezSeminary 2015-12-15 2015-12-15 Outpatient MHIE MHIE [id number] Memoria 13:30:00 13:30:00 02 sierra Butler 2015-12-15 2015-12-15 Outpatient MHIE MHIE [id number] Memoria 11:00:00 11:00:00 01 sierra [facility] 2015-12-15 2015-12-15 Outpatient MHIE IE [id number] Memoria 11:00:00 11:00:00 01 sierra [facility] 2015-12-02 2015-12-02 Outpatient MHIE IE [id number] Memoria 11:00:00 11:00:00 00 sierra [facility] 2015-12-02 2015-12-02 Outpatient IE IE [id number] Memoria 11:00:00 11:00:00 00 [facility] 2014-03-25 2014-03-26 Outpt Diag nullFlavo [facility] [id number] Memoria 14:57:00 04:59:00 Services r Outpatient 04 l Imaging [facility] 2014-03-25 2014-03-26 Outpt Diag nullFlavo [facility] [id number] Memoria 14:57:00 04:59:00 Services r Outpatient 04 l Imaging [facility] 2014-03-25 2014-03-25 Outpatient William, 2.16.840. [id number]. [id number] 09:57:00 23:59:00 Keron [id number] Gabbie [id number] 1290-04-02 2013-09-18 Outpt Diag nullFlavo [facility] [id number] Memoria 16:29:00 04:59:00 Services r Outpatient [id number] l Imaging 9 [facility] 2013-09-17 2013-09-18 Outpt Diag nullFlavo [facility] [id number] Memoria 16:29:00 04:59:00 Services r Outpatient [id number] l Imaging 9 [facility] 2013-09-17 2013-09-17 Outpatient William [id number]. [id number]. [id number] 11:29:00 23:59:00 Keron [id number] Gabbie [id number] 3898-04-18 2012-10-06 Inpatient nullFlavo [facility] [id number] Memoria 08:38:00 12:00:00 [facility] [place] Luke 2012-10-03 2012-10-06 Inpatient nullFlavo [facility] [id number] Memoria 08:38:00 12:00:00 [facility] Results Test Description Test Time Test Comments Results Result Comments Source Glucose [Mass/volume] in Capillary blood 2022-11-24 09:12:48 Test Item Value Reference Range Interpretation Comme nts Blood Glucose: mg/dl (test code = Blood Glucose: mg/dl) [facility] [id number] 12:12:08 Test Item Value Reference Range Interpretation Comments Blood Glucose: mg/dl (test code = Blood 144 Glucose: mg/dl) [facility] in Capillary [id number] 11:16:24 Test Item Value Reference Range Interpretation Comments Blood Glucose: mg/dl (test code = Blood 286 Glucose: mg/dl) [facility] in Capillary [id number] 14:52:13 Test Item Value Reference Range Interpretation Comments Blood Glucose: mg/dl (test code = Blood 243 Glucose: mg/dl) [facility]- XR FLUORO FOR SPINE [id number] 18:07:00 [facility] : 1940 Sex: F Patient Name: AMANDA LOVE Unit No: [id number] EXAMS: CPT CODE: [id number] XR FLUORO FOR SPINE INJ 75219 LUMBAR EPIRADICULAR INJECTION REFERRAL PHYSICIAN: Dr. Madrid [...] informed consent and IV access, with no contraindications, the patient was taken to the operating room and placed in a prone position with all extremities padded and appropriate monitors placed. The patient was sterilely prepped and draped over the lumbosacral spine. Using fluoroscopic visualization the insertion sites were marked for paravertebral approaches and using standard technique, a 25 gauge needle was advanced to the base of eachpedicle without paresthesias. Isovue-300 contrast 0.2 mL of was injected at each level incrementallywith frequent negative aspirations to produce each epidurogram. There were no signs of intravascularor intrathecal uptake. Bupivicaine 0.75% 0.25 mL with lidocaine 4% 0.5 mL and Decadron 5 mg was thenincrementally injected with frequent negative aspirations at each level and again there were no signs of intravascular or intrathecal uptake. The needles were removed and the patient was taken to the PACU in good condition. Image: Image 1 Image: Image 2 at 1807 Reported and signed by: BRANDIN CLARK MD CC: Phillip Castaneda MD Technologist: MICHELL SOTO (RT.R) Transcribed D/ (1806) [facility] [place] NAME: SENTHILFRANCISCO CRENSHAWAMANDA LOIDA [address] [facility] PHYS: Phillip Ladd MD [place], [place] [address] : 1940 AGE: 81 SEX: F LOC: CHON PHONE #: [phone] EXAM DATE: 12/16/2021 STATUS: [facility] FAX #: [phone] RAD #: [id number] D/C DT PAGE 1 Signed Report Patient Name: AMANDA LOVE Unit No: [id number] EXAMS: CPT CODE: [id number] XR FLUORO FOR SPINE INJ [id number] (Continued) Orig Print D/T: S: 12/23/2021 (1810) [place] [facility] [place] NAME: AMANDA LOVE [address] [facility] [address] PHYS: Phillip Ladd MD [place], [place] [address] : 1940 AGE: 81 SEX: F LOC: CHON PHONE #: [phone] EXAM DATE: 12/16/2021 STATUS: [facility]P [facility] FAX #: [phone] RAD #:[id number] D/C DT PAGE 2 Signed ReportGlucose [Mass/volume] in Capillary [id number] 08:37:03 Test Item Value Reference Range Interpretation Comments Blood Glucose: mg/dl (test code = Blood 220 Glucose: mg/dl) [facility] 14:01:00 Test Item Value Reference Range Interpretation Comments GLUBED (test code = GLUBED) 144 mg/dL 60-125 H [id number] 12:03:00 Test Item Value Reference Range Interpretation Comments GLUBED (test code = GLUBED) 138 mg/dL 60-125 H Hemoglobin A1c measurement device [id number] 14:11:19 Test Item Value Reference Range Interpretation Comments Hemoglobin A1C Fingerstick: (test code 7.2 = Hemoglobin A1C Fingerstick:) [facility] in Capillary [id number] 14:04:17 Test Item Value Reference Range Interpretation Comments Blood Glucose: mg/dl (test code = Blood 190 Glucose: mg/dl) [facility]] in Capillary [id number] 13:54:58 Test Item Value Reference Range Interpretation Comments Blood Glucose: mg/dl (test code = Blood 167 Glucose: mg/dl) [facility] [id number] 12:17:07 Test Item Value Reference Range Interpretation Comments Hemoglobin A1C Fingerstick: (test code 8.4 = Hemoglobin A1C Fingerstick:) [facility] [Mass/volume] in Capillary [id number] 12:14:41 Test Item Value Reference Range Interpretation Comments Blood Glucose: mg/dl (test code = Blood 212 Glucose: mg/dl) [facility]2016-08-01 09:05:00 Test Item Value Reference Range Interpretation Comments Magnesium Lvl (test code = Magnesium 1.8 1.8-2.4 Lvl) [facility]2016-08-01 09:05:00 Test Item Value Reference Range Interpretation Comments Phosphorus (test code = Phosphorus) 2.4 2.5-4.5 [facility]2016-08-01 09:05:00 Test Item Value Reference Range Interpretation Comments CO2 (test code = CO2) 30 24-32 [facility]2016-08-01 09:05:00 Test Item Value Reference Range Interpretation Comments Glucose Lvl (test code = Glucose Lvl) 240 70-99 [facility]2016-08-01 09:05:00 Test Item Value Reference Range Interpretation Comments Creatinine Lvl (test code = Creatinine 0.80 0.50-1.40 Lvl) [facility]2016-08-01 09:05:00 Test Item Value Reference Range Interpretation Comments BUN (test code = BUN) 20 7-22 [facility]2016-08-01 09:05:00 Test Item Value Reference Range Interpretation Comments eGFR (test code = eGFR) 73 [facility]2016-08-01 09:05:00 Test Item Value Reference Range Interpretation Comments Albumin Lvl (test code = Albumin Lvl) 2.8 3.5-5.0 [facility]2016-08-01 09:05:00 Test Item Value Reference Range Interpretation Comments Calcium Lvl (test code = Calcium Lvl) 10.5 8.5-10.5 [facility]2016-08-01 09:05:00 Test Item Value Reference Range Interpretation Comments Potassium Lvl (test code = Potassium 4.3 3.5-5.1 Lvl) [facility]2016-08-01 09:05:00 Test Item Value Reference Range Interpretation Comments Chloride Lvl (test code = Chloride Lvl) 107 95-109 [facility]2016-08-01 09:05:00 Test Item Value Reference Range Interpretation Comments Sodium Lvl (test code = Sodium Lvl) 143 135-145 [facility]2016-08-01 09:05:00 Test Item Value Reference Range Interpretation Comments AGAP (test code = AGAP) 10.3 10.0-20.0 [facility]qhxzsLRIAWCTMZD3596-00-80 09:05:00 Test Item Value Reference Range Interpretation Comments Lymphocytes # (test code = Lymphocytes 1.3 1.0-5.5 #) [facility]neCzpasgcGZJZMNGFOA7391-40-81 09:05:00 Test Item Value Reference Range Interpretation Comments Segs-Bands # (test code = Segs-Bands #) 4.4 1.5-8.1 [facility]neUivczpdKJOXXAFGRW9698-30-35 09:05:00 Test Item Value Reference Range Interpretation Comments Eosinophils # (test code 0.3 See_Comment [A utomated message] The = Eosinophils #) system [facility] generated this result tra nsmitted reference range : <=0.5. The reference r leatha was not used to int erpret this result as normal/abnormal . [facility]neWqbnjiqFEPCVIRLKM2920-01-46 09:05:00 Test Item Value Reference Range Interpretation Comments Monocytes # (test code 0.6 See_Comment [Aut omated message] The = Monocytes #) system which generated this result tra nsmitted reference range : <=0.8. The reference r leatha was not used to int erpret this result as normal/abnormal . [facility]neNcbtsogGNKNGUYPPH8353-48-87 09:05:00 Test Item Value Reference Range Interpretation Comments Basophils (test code = 0.5 See_Comment [Aut omated message] The Basophils) system which ge nerated this result tra nsmitted reference range : <=1.0. The reference r leatha was not used to int erpret this result as normal/abnormal . [facility]neOxkgdxmSSUNJWVFEQ6896-13-92 09:05:00 Test Item Value Reference Range Interpretation Comments Eosinophils (test code = 4.9 See_Comment [A utomated message] The Eosinophils) system which ge nerated this result tra nsmitted reference range : <=4.0. The reference r leatha was not used to int erpret this result as normal/abnormal . [facility]neRmfukkjHOCAOZDYTF0978-16-76 09:05:00 Test Item Value Reference Range Interpretation Comments Monocytes (test code = Monocytes) 9.1 2.0-12.0 [facility]neZsfaqwjOEZKWJAHMN5530-25-94 09:05:00 Test Item Value Reference Range Interpretation Comments Lymphocytes (test code = Lymphocytes) 18.9 20.0-40.0 [facility]ShxwtrjMVCDMYVMPU3062-08-79 09:05:00 Test Item Value Reference Range Interpretation Comments Segs (test code = Segs) 66.6 45.0-75.0 [facility] HospitalTkcxzpqVSXPZVLPRJ6042-94-57 09:05:00 Test Item Value Reference Range Interpretation Comments MPV (test code = MPV) 9.4 7.4-10.4 [facility]PASEPNNFC9647[facility]-36 09:05:00 Test Item Value Reference Range Interpretation Comments Platelet (test code = Platelet) 168 133-450 [facility]RzboqxeAXTHCXPEOC1885-89-52 09:05:00 Test Item Value Reference Range Interpretation Comments RDW (test code = RDW) 13.4 11.5-14.5 [facility] HospitalVkntwywEEFNJPQMDE5004-92-57 09:05:00 Test Item Value Reference Range Interpretation Comments MCHC (test code = MCHC) 32.8 32.0-36.0 [facility]QbqcydwCGOINHOVGO0210-28-88 09:05:00 Test Item Value Reference Range Interpretation Comments MCH (test code = MCH) 30.7 pg 27.0-31.0 [facility] HospitalUtxabdyCXVYSXDXAD3340-21-57 09:05:00 Test Item Value Reference Range Interpretation Comments MCV (test code = MCV) 93.6 80.0-98.0 [facility] HospitalTqgpoaoMQUCJTELIY3239-30-59 09:05:00 Test Item Value Reference Range Interpretation Comments WBC (test code = WBC) 6.6 3.7-10.4 [facility] HospitalUaejjreUQIDIVXTTV0197-21-69 09:05:00 Test Item Value Reference Range Interpretation Comments Hct (test code = Hct) 41.0 36.0-48.0 [facility]MewlwcpPDROBNICHB9921-65-43 09:05:00 Test Item Value Reference Range Interpretation Comments Hgb (test code = Hgb) 13.4 12.0-16.0 [facility] HospitalAxidraiXBMIYJLTXE0652-75-24 09:05:00 Test Item Value Reference Range Interpretation Comments RBC (test code = RBC) 4.38 4.20-5.40 [facility] XCBVPGZRM4910-05-43 09:05:00 Test Item Value Reference Range Interpretation Comments Hgb A1C (test code = Hgb A1C) 10.3 [facility]2016-08-01 09:05:00 Test Item Value Reference Range Interpretation Comments Magnesium Lvl (test code = Magnesium 1.8 1.8-2.4 Lvl) [facility]2016-08-01 09:05:00 Test Item Value Reference Range Interpretation Comments Phosphorus (test code = Phosphorus) 2.4 2.5-4.5 [facility]2016-08-01 09:05:00 Test Item Value Reference Range Interpretation Comments CO2 (test code = CO2) 30 24-32 [facility]2016-08-01 09:05:00 Test Item Value Reference Range Interpretation Comments Glucose Lvl (test code = Glucose Lvl) 240 70-99 [facility]2016-08-01 09:05:00 Test Item Value Reference Range Interpretation Comments Creatinine Lvl (test code = Creatinine 0.80 0.50-1.40 Lvl) [facility]2016-08-01 09:05:00 Test Item Value Reference Range Interpretation Comments BUN (test code = BUN) 20 7-22 [facility]2016-08-01 09:05:00 Test Item Value Reference Range Interpretation Comments eGFR (test code = eGFR) 73 [facility]2016-08-01 09:05:00 Test Item Value Reference Range Interpretation Comments Albumin Lvl (test code = Albumin Lvl) 2.8 3.5-5.0 [facility]2016-08-01 09:05:00 Test Item Value Reference Range Interpretation Comments Calcium Lvl (test code = Calcium Lvl) 10.5 8.5-10.5 [facility]2016-08-01 09:05:00 Test Item Value Reference Range Interpretation Comments Potassium Lvl (test code = Potassium 4.3 3.5-5.1 Lvl) [facility]2016-08-01 09:05:00 Test Item Value Reference Range Interpretation Comments Chloride Lvl (test code = Chloride Lvl) 107 95-109 [facility]2016-08-01 09:05:00 Test Item Value Reference Range Interpretation Comments Sodium Lvl (test code = Sodium Lvl) 143 135-145 [facility]2016-08-01 09:05:00 Test Item Value Reference Range Interpretation Comments AGAP (test code = AGAP) 10.3 10.0-20.0 [facility]neNzgkiqrPHXBWFUFIJ2623-12-39 09:05:00 Test Item Value Reference Range Interpretation Comments Lymphocytes # (test code = Lymphocytes 1.3 1.0-5.5 #) [facility]neRvuqyopPHQBBJFRCU4277-22-58 09:05:00 Test Item Value Reference Range Interpretation Comments Segs-Bands # (test code = Segs-Bands #) 4.4 1.5-8.1 [facility]neXsqglfjEMAMWGUTZA8562-75-36 09:05:00 Test Item Value Reference Range Interpretation Comments Eosinophils # (test code 0.3 See_Comment [A utomated message] The = Eosinophils #) system [facility] generated this result tra nsmitted reference range : <=0.5. The reference r leatha was not used to int erpret this result as normal/abnormal . [facility] Cle[facility]neFsrahrjJAMFSJGVSJ3130-31-00 09:05:00 Test Item Value Reference Range Interpretation Comments Monocytes # (test code 0.6 See_Comment [Aut omated message] The = Monocytes #) system which generated this result tra nsmitted reference range : <=0.8. The reference r leatha was not used to int erpret this result as normal/abnormal . [facility] Cle[facility]neXanpldhFHOYTCQOAE5989-47-19 09:05:00 Test Item Value Reference Range Interpretation Comments Basophils (test code = 0.5 See_Comment [Aut omated message] The Basophils) system which ge nerated this result tra nsmitted reference range : <=1.0. The reference r leatha was not used to int erpret this result as normal/abnormal . [facility]neOjfbkclAWPBNLHJNI4570-91-72 09:05:00 Test Item Value Reference Range Interpretation Comments Eosinophils (test code = 4.9 See_Comment [A utomated message] The Eosinophils) system which ge nerated this result tra nsmitted reference range : <=4.0. The reference r leatha was not used to int erpret this result as normal/abnormal . [facility] Cle[facility]neUujormoDIBFHQUXGZ6689-68-61 09:05:00 Test Item Value Reference Range Interpretation Comments Monocytes (test code = Monocytes) 9.1 2.0-12.0 [facility]neOgjvcejGXOMWSJNGG4933-23-75 09:05:00 Test Item Value Reference Range Interpretation Comments Lymphocytes (test code = Lymphocytes) 18.9 20.0-40.0 [facility] HospitalCgiffsfQPIBXHZEXN1413-64-61 09:05:00 Test Item Value Reference Range Interpretation Comments Segs (test code = Segs) 66.6 45.0-75.0 [facility] HospitalXryfrohTQTTWOSPTZ1669-57-95 09:05:00 Test Item Value Reference Range Interpretation Comments MPV (test code = MPV) 9.4 7.4-10.4 [facility] HospitalNybfvwvQTHVNWWGRB1439-89-67 09:05:00 Test Item Value Reference Range Interpretation Comments Platelet (test code = Platelet) 168 133-450 [facility] HospitalUfglzkkSKHSVBSPID4223-06-38 09:05:00 Test Item Value Reference Range Interpretation Comments RDW (test code = RDW) 13.4 11.5-14.5 [facility] HospitalDkfdvayWCLTATDJRS7674-54-97 09:05:00 Test Item Value Reference Range Interpretation Comments MCHC (test code = MCHC) 32.8 32.0-36.0 [facility] HospitalAlyiwekXCMMRKUNEW3625-14-74 09:05:00 Test Item Value Reference Range Interpretation Comments MCH (test code = MCH) 30.7 pg 27.0-31.0 [facility] HospitalEbqzhnaUBSFHRRULF8114-79-72 09:05:00 Test Item Value Reference Range Interpretation Comments MCV (test code = MCV) 93.6 80.0-98.0 [facility] HospitalTlgcfpxYIYWBAZNGB7275-94-38 09:05:00 Test Item Value Reference Range Interpretation Comments WBC (test code = WBC) 6.6 3.7-10.4 [facility] HospitalDgzqusuGQZKMRVETJ2497-91-05 09:05:00 Test Item Value Reference Range Interpretation Comments Hct (test code = Hct) 41.0 36.0-48.0 [facility] HospitalRjpegntOPODTKQTVA3998-52-84 09:05:00 Test Item Value Reference Range Interpretation Comments Hgb (test code = Hgb) 13.4 12.0-16.0 [facility] HospitalMqlfyjjQCVMPJGNHC4383-99-11 09:05:00 Test Item Value Reference Range Interpretation Comments RBC (test code = RBC) 4.38 4.20-5.40 [facility] RCOWMZZFH1159-66-56 09:05:00 Test Item Value Reference Range Interpretation Comments Hgb A1C (test code = Hgb A1C) 10.3 [facility]2016-08-01 09:05:00 Test Item Value Reference Range Interpretation Comments Magnesium Lvl (test code = Magnesium 1.8 1.8-2.4 Lvl) [facility]2016-08-01 09:05:00 Test Item Value Reference Range Interpretation Comments Phosphorus (test code = Phosphorus) 2.4 2.5-4.5 [facility]2016-08-01 09:05:00 Test Item Value Reference Range Interpretation Comments CO2 (test code = CO2) 30 24-32 [facility]2016-08-01 09:05:00 Test Item Value Reference Range Interpretation Comments Glucose Lvl (test code = Glucose Lvl) 240 70-99 [facility]2016-08-01 09:05:00 Test Item Value Reference Range Interpretation Comments Creatinine Lvl (test code = Creatinine 0.80 0.50-1.40 Lvl) [facility]2016-08-01 09:05:00 Test Item Value Reference Range Interpretation Comments BUN (test code = BUN) 20 7-22 [facility]2016-08-01 09:05:00 Test Item Value Reference Range Interpretation Comments eGFR (test code = eGFR) 73 [facility]2016-08-01 09:05:00 Test Item Value Reference Range Interpretation Comments Albumin Lvl (test code = Albumin Lvl) 2.8 3.5-5.0 [facility]2016-08-01 09:05:00 Test Item Value Reference Range Interpretation Comments Calcium Lvl (test code = Calcium Lvl) 10.5 8.5-10.5 [facility]2016-08-01 09:05:00 Test Item Value Reference Range Interpretation Comments Potassium Lvl (test code = Potassium 4.3 3.5-5.1 Lvl) [facility]2016-08-01 09:05:00 Test Item Value Reference Range Interpretation Comments Chloride Lvl (test code = Chloride Lvl) 107 95-109 [facility]2016-08-01 09:05:00 Test Item Value Reference Range Interpretation Comments Sodium Lvl (test code = Sodium Lvl) 143 135-145 [place] 984416-08-01 09:05:00 Test Item Value Reference Range Interpretation Comments AGAP (test code = AGAP) 10.3 10.0-20.0 [facility]neGkmdafgHNWUYEDGYN2506-06-13 09:05:00 Test Item Value Reference Range Interpretation Comments Lymphocytes # (test code = Lymphocytes 1.3 1.0-5.5 #) [facility]neVhlfzvwFMEDCSHEER4517-08-72 09:05:00 Test Item Value Reference Range Interpretation Comments Segs-Bands # (test code = Segs-Bands #) 4.4 1.5-8.1 [facility]neQltojntQXGGWTHLJB4892-26-69 09:05:00 Test Item Value Reference Range Interpretation Comments Eosinophils # (test code 0.3 See_Comment [A utomated message] The = Eosinophils #) [facility] generated this result tra nsmitted reference range : <=0.5. The reference r leatha was not used to int erpret this result as normal/abnormal . [facility]neDviavedSHLGMCYXUF4926-32-61 09:05:00 Test Item Value Reference Range Interpretation Comments Monocytes # (test code 0.6 See_Comment [Aut omated message] The = Monocytes #) system which generated this result tra nsmitted reference range : <=0.8. The reference r leatha was not used to int erpret this result as normal/abnormal . [facility]neHvtxavtWVUJRHOINV7602-84-34 09:05:00 Test Item Value Reference Range Interpretation Comments Basophils (test code = 0.5 See_Comment [Aut omated message] The Basophils) system which ge nerated this result tra nsmitted reference range : <=1.0. The reference r leatha was not used to int erpret this result as normal/abnormal . [facility]neVdfbmkwOVHPBOLEFT8408-37-11 09:05:00 Test Item Value Reference Range Interpretation Comments Eosinophils (test code = 4.9 See_Comment [A utomated message] The Eosinophils) system which ge nerated this result tra nsmitted reference range : <=4.0. The reference r leatha was not used to int erpret this result as normal/abnormal . [facility]neTdgttcsBNFXXQTNYA2333-49-36 09:05:00 Test Item Value Reference Range Interpretation Comments Monocytes (test code = Monocytes) 9.1 2.0-12.0 [facility]neNfrwaenFBEPWTGUTJ3757-68-45 09:05:00 Test Item Value Reference Range Interpretation Comments Lymphocytes (test code = Lymphocytes) 18.9 20.0-40.0 [facility]IwiixioIHDIPGMSDJ4822-29-43 09:05:00 Test Item Value Reference Range Interpretation Comments Segs (test code = Segs) 66.6 45.0-75.0 [facility]IvsgyqeBUQNWUUDIY9423-11-57 09:05:00 Test Item Value Reference Range Interpretation Comments MPV (test code = MPV) 9.4 7.4-10.4 [facility] HospitalTojtlyfXACZESKYXE8076-21-27 09:05:00 Test Item Value Reference Range Interpretation Comments Platelet (test code = Platelet) 168 133-450 [facility] HospitalCcvujzzZBEOJSGRAO3707-23-83 09:05:00 Test Item Value Reference Range Interpretation Comments RDW (test code = RDW) 13.4 11.5-14.5 [facility] HospitalTtmvdslSLATVMNXJV7999-57-13 09:05:00 Test Item Value Reference Range Interpretation Comments MCHC (test code = MCHC) 32.8 32.0-36.0 [facility] HospitalBbkctzhOHCRMHSAIG7948-32-70 09:05:00 Test Item Value Reference Range Interpretation Comments MCH (test code = MCH) 30.7 pg 27.0-31.0 [facility] HospitalXmsqazrLFFDTPBURA8156-48-78 09:05:00 Test Item Value Reference Range Interpretation Comments MCV (test code = MCV) 93.6 80.0-98.0 [facility] HospitalSekvxzsMYBMEOILHF6841-62-98 09:05:00 Test Item Value Reference Range Interpretation Comments WBC (test code = WBC) 6.6 3.7-10.4 [facility] HospitalUnpdjxuCGVKURXGND9579-58-32 09:05:00 Test Item Value Reference Range Interpretation Comments Hct (test code = Hct) 41.0 36.0-48.0 [facility] HospitalVmizcojNQDEXDCJZN8773-87-49 09:05:00 Test Item Value Reference Range Interpretation Comments Hgb (test code = Hgb) 13.4 12.0-16.0 [facility] HospitalIxswrxzMABPEGETWG9003-69-09 09:05:00 Test Item Value Reference Range Interpretation Comments RBC (test code = RBC) 4.38 4.20-5.40 [facility] CXQYSNHGD9142-01-20 09:05:00 Test Item Value Reference Range Interpretation Comments Hgb A1C (test code = Hgb A1C) 10.3 [facility] HospitalCHEM AKGFM1536-20-62 09:05:00 Test Item Value Reference Range Interpretation Comments Magnesium Lvl (test code = Magnesium 1.8 1.8-2.4 Lvl) [facility]2016-08-01 09:05:00 Test Item Value Reference Range Interpretation Comments Phosphorus (test code = Phosphorus) 2.4 2.5-4.5 [facility]2016-08-01 09:05:00 Test Item Value Reference Range Interpretation Comments CO2 (test code = CO2) 30 24-32 [facility]2016-08-01 09:05:00 Test Item Value Reference Range Interpretation Comments Glucose Lvl (test code = Glucose Lvl) 240 70-99 [facility]2016-08-01 09:05:00 Test Item Value Reference Range Interpretation Comments Creatinine Lvl (test code = Creatinine 0.80 0.50-1.40 Lvl) [facility]2016-08-01 09:05:00 Test Item Value Reference Range Interpretation Comments BUN (test code = BUN) 20 7-22 [facility]2016-08-01 09:05:00 Test Item Value Reference Range Interpretation Comments eGFR (test code = eGFR) 73 [facility]2016-08-01 09:05:00 Test Item Value Reference Range Interpretation Comments Albumin Lvl (test code = Albumin Lvl) 2.8 3.5-5.0 [facility]2016-08-01 09:05:00 Test Item Value Reference Range Interpretation Comments Calcium Lvl (test code = Calcium Lvl) 10.5 8.5-10.5 [facility]2016-08-01 09:05:00 Test Item Value Reference Range Interpretation Comments Potassium Lvl (test code = Potassium 4.3 3.5-5.1 Lvl) [facility]2016-08-01 09:05:00 Test Item Value Reference Range Interpretation Comments Chloride Lvl (test code = Chloride Lvl) 107 95-109 [facility]2016-08-01 09:05:00 Test Item Value Reference Range Interpretation Comments Sodium Lvl (test code = Sodium Lvl) 143 135-145 [facility]2016-08-01 09:05:00 Test Item Value Reference Range Interpretation Comments AGAP (test code = AGAP) 10.3 10.0-20.0 [facility]neVesipnbEDKCFDMAYE8808-52-12 09:05:00 Test Item Value Reference Range Interpretation Comments Lymphocytes # (test code = Lymphocytes 1.3 1.0-5.5 #) [facility]neBuhusskTRMHCAURSR0033-76-06 09:05:00 Test Item Value Reference Range Interpretation Comments Segs-Bands # (test code = Segs-Bands #) 4.4 1.5-8.1 [facility]neIvfxozaCRKCYCEVAP5497-46-40 09:05:00 Test Item Value Reference Range Interpretation Comments Eosinophils # (test code 0.3 See_Comment [A utomated message] The = Eosinophils #) system [facility] h generated this result tra nsmitted reference range : <=0.5. The reference r leatha was not used to int erpret this result as normal/abnormal . [facility]neWfflwjpGPMUDDRPYB8684-09-96 09:05:00 Test Item Value Reference Range Interpretation Comments Monocytes # (test code 0.6 See_Comment [Aut omated message] The = Monocytes #) system which generated this result tra nsmitted reference range : <=0.8. The reference r leatha was not used to int erpret this result as normal/abnormal . [facility]neJgiwleyYRYGEIEURB6175-55-55 09:05:00 Test Item Value Reference Range Interpretation Comments Basophils (test code = 0.5 See_Comment [Aut omated message] The Basophils) system which ge nerated this result tra nsmitted reference range : <=1.0. The reference r leatha was not used to int erpret this result as normal/abnormal . [facility]neAxbrkkcKDXLUAWFSI9928-76-85 09:05:00 Test Item Value Reference Range Interpretation Comments Eosinophils (test code = 4.9 See_Comment [A utomated message] The Eosinophils) system which ge nerated this result tra nsmitted reference range : <=4.0. The reference r leatha was not used to int erpret this result as normal/abnormal . [facility]neVfvmyigNNKKLLYQAP5998-59-39 09:05:00 Test Item Value Reference Range Interpretation Comments Monocytes (test code = Monocytes) 9.1 2.0-12.0 [facility]neDkmjzvhJXISHELVIR9470-03-54 09:05:00 Test Item Value Reference Range Interpretation Comments Lymphocytes (test code = Lymphocytes) 18.9 20.0-40.0 [facility] HospitalHctngdtRYSGZPSIKH3307-52-98 09:05:00 Test Item Value Reference Range Interpretation Comments Segs (test code = Segs) 66.6 45.0-75.0 [facility] HospitalMbfthvdDSFXQGZLRP8973-09-78 09:05:00 Test Item Value Reference Range Interpretation Comments MPV (test code = MPV) 9.4 7.4-10.4 [facility] HospitalHxfkjfiVBQEBUENNH3517-14-04 09:05:00 Test Item Value Reference Range Interpretation Comments Platelet (test code = Platelet) 168 133-450 [facility] HospitalScipuoyJWKMVPNQMB2300-52-67 09:05:00 Test Item Value Reference Range Interpretation Comments RDW (test code = RDW) 13.4 11.5-14.5 [facility] HospitalTotqbddERHNKFDEPF2068-19-72 09:05:00 Test Item Value Reference Range Interpretation Comments MCHC (test code = MCHC) 32.8 32.0-36.0 [facility] HospitalZxvsajxAFRWWKRHDJ8095-08-76 09:05:00 Test Item Value Reference Range Interpretation Comments MCH (test code = MCH) 30.7 pg 27.0-31.0 [facility] HospitalCmqrjwkEOFQKUYXXF9875-48-85 09:05:00 Test Item Value Reference Range Interpretation Comments MCV (test code = MCV) 93.6 80.0-98.0 [facility] HospitalHimquzqFLPXAYVJXZ8770-32-39 09:05:00 Test Item Value Reference Range Interpretation Comments WBC (test code = WBC) 6.6 3.7-10.4 [facility] HospitalUohonmqKYUNOEHFGV2128-75-04 09:05:00 Test Item Value Reference Range Interpretation Comments Hct (test code = Hct) 41.0 36.0-48.0 [facility] HospitalTjdlnnyHAOIGRHHVW4332-50-47 09:05:00 Test Item Value Reference Range Interpretation Comments Hgb (test code = Hgb) 13.4 12.0-16.0 [facility] HospitalSixhtfhIXVEGJAUHF1595-38-23 09:05:00 Test Item Value Reference Range Interpretation Comments RBC (test code = RBC) 4.38 4.20-5.40 [facility] KDSHKKAZJ4392-48-93 09:05:00 Test Item Value Reference Range Interpretation Comments Hgb A1C (test code = Hgb A1C) 10.3 [facility] HospitalCHEM UXITS8372-32-52 09:05:00 Test Item Value Reference Range Interpretation Comments Magnesium Lvl (test code = Magnesium 1.8 1.8-2.4 Lvl) [facility]2016-08-01 09:05:00 Test Item Value Reference Range Interpretation Comments Phosphorus (test code = Phosphorus) 2.4 2.5-4.5 [facility]2016-08-01 09:05:00 Test Item Value Reference Range Interpretation Comments CO2 (test code = CO2) 30 24-32 [facility]2016-08-01 09:05:00 Test Item Value Reference Range Interpretation Comments Glucose Lvl (test code = Glucose Lvl) 240 70-99 [facility]2016-08-01 09:05:00 Test Item Value Reference Range Interpretation Comments Creatinine Lvl (test code = Creatinine 0.80 0.50-1.40 Lvl) [facility]2016-08-01 09:05:00 Test Item Value Reference Range Interpretation Comments BUN (test code = BUN) 20 7-22 [facility]2016-08-01 09:05:00 Test Item Value Reference Range Interpretation Comments eGFR (test code = eGFR) 73 [facility]2016-08-01 09:05:00 Test Item Value Reference Range Interpretation Comments Albumin Lvl (test code = Albumin Lvl) 2.8 3.5-5.0 [facility]2016-08-01 09:05:00 Test Item Value Reference Range Interpretation Comments Calcium Lvl (test code = Calcium Lvl) 10.5 8.5-10.5 [facility]2016-08-01 09:05:00 Test Item Value Reference Range Interpretation Comments Potassium Lvl (test code = Potassium 4.3 3.5-5.1 Lvl) [facility]2016-08-01 09:05:00 Test Item Value Reference Range Interpretation Comments Chloride Lvl (test code = Chloride Lvl) 107 95-109 [facility]2016-08-01 09:05:00 Test Item Value Reference Range Interpretation Comments Sodium Lvl (test code = Sodium Lvl) 143 135-145 [facility]2016-08-01 09:05:00 Test Item Value Reference Range Interpretation Comments AGAP (test code = AGAP) 10.3 10.0-20.0 [facility]neJgknfifESLPPUSVCY0113-80-76 09:05:00 Test Item Value Reference Range Interpretation Comments Lymphocytes # (test code = Lymphocytes 1.3 1.0-5.5 #) [facility]neVscgostSMHOZTUFJQ1817-28-83 09:05:00 Test Item Value Reference Range Interpretation Comments Segs-Bands # (test code = Segs-Bands #) 4.4 1.5-8.1 [facility]neUcljtaxAJEAAZIROC6745-89-38 09:05:00 Test Item Value Reference Range Interpretation Comments Eosinophils # (test code 0.3 See_Comment [A utomated message] The = Eosinophils #) system wh h generated this result tra nsmitted reference range : <=0.5. The reference r leatha was not used to int erpret this result as normal/abnormal . [facility]neNhuwgafGHOXEIPBLS0084-28-20 09:05:00 Test Item Value Reference Range Interpretation Comments Monocytes # (test code 0.6 See_Comment [Aut omated message] The = Monocytes #) system which generated this result tra nsmitted reference range : <=0.8. The reference r leatha was not used to int erpret this result as normal/abnormal . [facility]neCmcfaziWYNEDCGTIV1094-98-13 09:05:00 Test Item Value Reference Range Interpretation Comments Basophils (test code = 0.5 See_Comment [Aut omated message] The Basophils) system which ge nerated this result tra nsmitted reference range : <=1.0. The reference r leatha was not used to int erpret this result as normal/abnormal . [facility]neXdkqpazEGQYFFOADZ2842-02-31 09:05:00 Test Item Value Reference Range Interpretation Comments Eosinophils (test code = 4.9 See_Comment [A utomated message] The Eosinophils) system which ge nerated this result tra nsmitted reference range : <=4.0. The reference r leatha was not used to int erpret this result as normal/abnormal . [facility]neSbrftjwNNXOAGZRUM2215-65-97 09:05:00 Test Item Value Reference Range Interpretation Comments Monocytes (test code = Monocytes) 9.1 2.0-12.0 [facility]neAuomebfKDJBEDUYZO6023-22-16 09:05:00 Test Item Value Reference Range Interpretation Comments Lymphocytes (test code = Lymphocytes) 18.9 20.0-40.0 [facility]neVcbnmstAELPEWOUVH4597-96-01 09:05:00 Test Item Value Reference Range Interpretation Comments Segs (test code = Segs) 66.6 45.0-75.0 [facility] HospitalWscqvrtKZQHWLCAMU5211-62-35 09:05:00 Test Item Value Reference Range Interpretation Comments MPV (test code = MPV) 9.4 7.4-10.4 [facility] HospitalQppfwbeGWQOKQYJLJ0822-81-43 09:05:00 Test Item Value Reference Range Interpretation Comments Platelet (test code = Platelet) 168 133-450 [facility] HospitalHycbyegKBDMRSLTAW3328-76-03 09:05:00 Test Item Value Reference Range Interpretation Comments RDW (test code = RDW) 13.4 11.5-14.5 [facility] HospitalFyflaqlZJUIPWNZTM2199-79-32 09:05:00 Test Item Value Reference Range Interpretation Comments MCHC (test code = MCHC) 32.8 32.0-36.0 [facility] HospitalLtrfjsuTKOWBTESCG2871-96-18 09:05:00 Test Item Value Reference Range Interpretation Comments MCH (test code = MCH) 30.7 pg 27.0-31.0 [facility] HospitalGqdbjuaCCMRZKIBCA9649-47-64 09:05:00 Test Item Value Reference Range Interpretation Comments MCV (test code = MCV) 93.6 80.0-98.0 [facility] HospitalZiexlbxEVPEDUTZAX1010-94-94 09:05:00 Test Item Value Reference Range Interpretation Comments WBC (test code = WBC) 6.6 3.7-10.4 [facility] HospitalQkswqfuRRYSCJRWXM1334-20-80 09:05:00 Test Item Value Reference Range Interpretation Comments Hct (test code = Hct) 41.0 36.0-48.0 [facility] HospitalHjennqjCUHKEUDIHA5740-03-52 09:05:00 Test Item Value Reference Range Interpretation Comments Hgb (test code = Hgb) 13.4 12.0-16.0 [facility] HospitalWevvjiiNCYVTPYLQJ9298-78-51 09:05:00 Test Item Value Reference Range Interpretation Comments RBC (test code = RBC) 4.38 4.20-5.40 [facility] MYGWXTCET1858-62-58 09:05:00 Test Item Value Reference Range Interpretation Comments Hgb A1C (test code = Hgb A1C) 10.3 [facility]CHEM RZFLW9325-97-73 09:05:00 Test Item Value Reference Range Interpretation Comments Magnesium Lvl (test code = Magnesium 1.8 1.8-2.4 Lvl) [facility]2016-08-01 09:05:00 Test Item Value Reference Range Interpretation Comments Phosphorus (test code = Phosphorus) 2.4 2.5-4.5 [facility]2016-08-01 09:05:00 Test Item Value Reference Range Interpretation Comments CO2 (test code = CO2) 30 24-32 [facility]2016-08-01 09:05:00 Test Item Value Reference Range Interpretation Comments Glucose Lvl (test code = Glucose Lvl) 240 70-99 [facility]2016-08-01 09:05:00 Test Item Value Reference Range Interpretation Comments Creatinine Lvl (test code = Creatinine 0.80 0.50-1.40 Lvl) [facility]2016-08-01 09:05:00 Test Item Value Reference Range Interpretation Comments BUN (test code = BUN) 20 7-22 [facility]2016-08-01 09:05:00 Test Item Value Reference Range Interpretation Comments eGFR (test code = eGFR) 73 [facility]2016-08-01 09:05:00 Test Item Value Reference Range Interpretation Comments Albumin Lvl (test code = Albumin Lvl) 2.8 3.5-5.0 [facility]2016-08-01 09:05:00 Test Item Value Reference Range Interpretation Comments Calcium Lvl (test code = Calcium Lvl) 10.5 8.5-10.5 [facility]2016-08-01 09:05:00 Test Item Value Reference Range Interpretation Comments Potassium Lvl (test code = Potassium 4.3 3.5-5.1 Lvl) [facility]2016-08-01 09:05:00 Test Item Value Reference Range Interpretation Comments Chloride Lvl (test code = Chloride Lvl) 107 95-109 [facility]2016-08-01 09:05:00 Test Item Value Reference Range Interpretation Comments Sodium Lvl (test code = Sodium Lvl) 143 135-145 [facility]2016-08-01 09:05:00 Test Item Value Reference Range Interpretation Comments AGAP (test code = AGAP) 10.3 10.0-20.0 [facility]neZvfskgaTBHKAQZCSA8750-09-23 09:05:00 Test Item Value Reference Range Interpretation Comments Lymphocytes # (test code = Lymphocytes 1.3 1.0-5.5 #) [facility]neAblytkaJKEKRREJQE8791-00-31 09:05:00 Test Item Value Reference Range Interpretation Comments Segs-Bands # (test code = Segs-Bands #) 4.4 1.5-8.1 [facility]neQmykgfaADWICMXTAC0593-89-28 09:05:00 Test Item Value Reference Range Interpretation Comments Eosinophils # (test code 0.3 See_Comment [A utomated message] The = Eosinophils #) system whic h generated this result tra nsmitted reference range : <=0.5. The reference r leatha was not used to int erpret this result as normal/abnormal . [facility]neNzpvyqhAXZNYVLVZG3678-95-34 09:05:00 Test Item Value Reference Range Interpretation Comments Monocytes # (test code 0.6 See_Comment [Aut omated message] The = Monocytes #) system which generated this result tra nsmitted reference range : <=0.8. The reference r leatha was not used to int erpret this result as normal/abnormal . [facility]neSiirkqrYAGZTSKZQZ1628-24-39 09:05:00 Test Item Value Reference Range Interpretation Comments Basophils (test code = 0.5 See_Comment [Aut omated message] The Basophils) system which ge nerated this result tra nsmitted reference range : <=1.0. The reference r leatha was not used to int erpret this result as normal/abnormal . [facility]neMzpgicqPMNJGOKWVH1615-23-73 09:05:00 Test Item Value Reference Range Interpretation Comments Eosinophils (test code = 4.9 See_Comment [A utomated message] The Eosinophils) system which ge nerated this result tra nsmitted reference range : <=4.0. The reference r leatha was not used to int erpret this result as normal/abnormal . [facility]neRdkkqfaUFRDLUEYLZ6443-90-57 09:05:00 Test Item Value Reference Range Interpretation Comments Monocytes (test code = Monocytes) 9.1 2.0-12.0 [facility]neLeeermdCVWBNHMGIB0904-85-61 09:05:00 Test Item Value Reference Range Interpretation Comments Lymphocytes (test code = Lymphocytes) 18.9 20.0-40.0 [facility]neVixdyjpQVJRHJHQSW7620-45-18 09:05:00 Test Item Value Reference Range Interpretation Comments Segs (test code = Segs) 66.6 45.0-75.0 [facility] HospitalEcivxzvLIKLLDQAHV4739-10-77 09:05:00 Test Item Value Reference Range Interpretation Comments MPV (test code = MPV) 9.4 7.4-10.4 [facility] HospitalSpssibsCOKCUAOYDM6278-58-49 09:05:00 Test Item Value Reference Range Interpretation Comments Platelet (test code = Platelet) 168 133-450 [facility] HospitalSgweazcNWYZJOWPIR9285-37-21 09:05:00 Test Item Value Reference Range Interpretation Comments RDW (test code = RDW) 13.4 11.5-14.5 [facility] HospitalNvwmwytDMALRAEUJP8690-03-89 09:05:00 Test Item Value Reference Range Interpretation Comments MCHC (test code = MCHC) 32.8 32.0-36.0 [facility] HospitalHvmmojrWFMHEKIXTH8827-51-55 09:05:00 Test Item Value Reference Range Interpretation Comments MCH (test code = MCH) 30.7 pg 27.0-31.0 [facility] HospitalNkmpqyhIUXDROFCCP0912-16-30 09:05:00 Test Item Value Reference Range Interpretation Comments MCV (test code = MCV) 93.6 80.0-98.0 [facility] HospitalJqbjywsWHRLMDZVEQ7800-37-84 09:05:00 Test Item Value Reference Range Interpretation Comments WBC (test code = WBC) 6.6 3.7-10.4 [facility] HospitalCrbaieuTNFDYEBUDR2606-70-61 09:05:00 Test Item Value Reference Range Interpretation Comments Hct (test code = Hct) 41.0 36.0-48.0 [facility] HospitalIomxwknLAGGUMOTSZ8402-60-68 09:05:00 Test Item Value Reference Range Interpretation Comments Hgb (test code = Hgb) 13.4 12.0-16.0 [facility] HospitalVkkrnzbHYWYKELBOW5159-10-10 09:05:00 Test Item Value Reference Range Interpretation Comments RBC (test code = RBC) 4.38 4.20-5.40 [facility] XGNUHXPVT5017-31-85 09:05:00 Test Item Value Reference Range Interpretation Comments Hgb A1C (test code = Hgb A1C) 10.3 [facility]CHEM UCDIL1974-71-87 09:17:00 Test Item Value Reference Range Interpretation Comments eGFR (test code = eGFR) 81 [facility]2016-07-30 09:17:00 Test Item Value Reference Range Interpretation Comments Creatinine Lvl (test code = Creatinine 0.73 0.50-1.40 Lvl) [facility]2016-07-30 09:17:00 Test Item Value Reference Range Interpretation Comments AST (test code = AST) 7 See_Comment [Auto mated message] The system which ge nerated this result transmit juan reference range : <=37. The reference range was not used to interpr et this result as lashonda l/abnormal. [facility]2016-07-30 09:17:00 Test Item Value Reference Range Interpretation Comments Total Protein (test code = Total 5.0 6.4-8.4 Protein) [facility]2016-07-30 09:17:00 Test Item Value Reference Range Interpretation Comments Alk Phos (test code = Alk Phos) 73 39-136 [facility]2016-07-30 09:17:00 Test Item Value Reference Range Interpretation Comments ALT (test code = ALT) 29 See_Comment [Auto mated message] The system which ge nerated this result transmit juan reference range : <=65. The reference range was not used to interpr et this result as lashonda l/abnormal. [facility]2016-07-30 09:17:00 Test Item Value Reference Range Interpretation Comments Bili Total (test code = Bili Total) 0.7 0.2-1.3 [facility]2016-07-30 09:17:00 Test Item Value Reference Range Interpretation Comments Albumin Lvl (test code = Albumin Lvl) 2.7 3.5-5.0 [facility]2016-07-30 09:17:00 Test Item Value Reference Range Interpretation Comments AGAP (test code = AGAP) 10.9 10.0-20.0 [facility]2016-07-30 09:17:00 Test Item Value Reference Range Interpretation Comments Calcium Lvl (test code = Calcium Lvl) 10.0 8.5-10.5 [facility]2016-07-30 09:17:00 Test Item Value Reference Range Interpretation Comments Glucose Lvl (test code = Glucose Lvl) 208 70-99 [place] 984416-07-30 09:17:00 Test Item Value Reference Range Interpretation Comments Potassium Lvl (test code = Potassium 3.9 3.5-5.1 Lvl) [facility]2016-07-30 09:17:00 Test Item Value Reference Range Interpretation Comments BUN (test code = BUN) 20 7-22 [facility]2016-07-30 09:17:00 Test Item Value Reference Range Interpretation Comments Sodium Lvl (test code = Sodium Lvl) 145 135-145 [facility]2016-07-30 09:17:00 Test Item Value Reference Range Interpretation Comments Chloride Lvl (test code = Chloride Lvl) 109 95-109 [facility]2016-07-30 09:17:00 Test Item Value Reference Range Interpretation Comments CO2 (test code = CO2) 29 24-32 [facility]2016-07-30 09:17:00 Test Item Value Reference Range Interpretation Comments B/C Ratio (test code = B/C Ratio) 27 6-25 [facility]2016-07-30 09:17:00 Test Item Value Reference Range Interpretation Comments A/G Ratio (test code = A/G Ratio) 1.2 0.7-1.6 [facility]2016-07-30 09:17:00 Test Item Value Reference Range Interpretation Comments Globulin (test code = Globulin) 2.3 2.0-4.0 [facility]BdaofsrCRDZPCESWK6835-81-16 09:17:00 Test Item Value Reference Range Interpretation Comments Monocytes (test code = Monocytes) 11.7 2.0-12.0 [facility]neIsxxedmQCUWQDYBNB8852-90-81 09:17:00 Test Item Value Reference Range Interpretation Comments Segs-Bands # (test code = Segs-Bands #) 4.9 1.5-8.1 [facility]neKtulftjSUFFCPYZHT0807-83-41 09:17:00 Test Item Value Reference Range Interpretation Comments Basophils (test code = 0.4 See_Comment [Aut omated message] The Basophils) system which ge nerated this result tra nsmitted reference range : <=1.0. The reference r leatha was not used to int erpret this result as normal/abnormal . [facility]neIlraunnQPAHHOXPIZ7351-96-13 09:17:00 Test Item Value Reference Range Interpretation Comments Lymphocytes # (test code = Lymphocytes 1.3 1.0-5.5 #) [facility]neEekpfkuSAZUKUJJER0253-58-31 09:17:00 Test Item Value Reference Range Interpretation Comments Macrocyte (test code = 1+ *ABN*(01/15/16 Macrocyte) 4:17 AM) [facility]neForiephRGCSHMPMBR0078-21-55 09:17:00 Test Item Value Reference Range Interpretation Comments Segs (test code = Segs) 67.7 45.0-75.0 [facility]neFawegflWNGFBBFEZF5345-20-59 09:17:00 Test Item Value Reference Range Interpretation Comments Lymphocytes (test code = Lymphocytes) 17.4 20.0-40.0 [facility]neRcwooozRLFXOWWMVW7468-05-29 09:17:00 Test Item Value Reference Range Interpretation Comments Eosinophils (test code = 2.8 See_Comment [A utomated message] The Eosinophils) system which ge nerated this result tra nsmitted reference range : <=4.0. The reference r leatha was not used to int erpret this result as normal/abnormal . [facility]neTngwpuwQORTWBUDZJ5773-32-25 09:17:00 Test Item Value Reference Range Interpretation Comments Basophils # (test code 0.0 See_Comment [Aut omated message] The = Basophils #) system which generated this result tra nsmitted reference range : <=0.2. The reference r leatha was not used to int erpret this result as normal/abnormal . [facility] CleburneCxtcosaIDFPHDEXMQ2559-82-63 09:17:00 Test Item Value Reference Range Interpretation Comments Eosinophils # (test code 0.2 See_Comment [A utomated message] The = Eosinophils #) system whic h generated this result tra nsmitted reference range : <=0.5. The reference r leatha was not used to int erpret this result as normal/abnormal . [facility]neTazvaqmXJYAYICVBU2543-27-18 09:17:00 Test Item Value Reference Range Interpretation Comments Monocytes # (test code 0.9 See_Comment [Aut omated message] The = Monocytes #) system which generated this result tra nsmitted reference range : <=0.8. The reference r leatha was not used to int erpret this result as normal/abnormal . [facility]neWzhkqbzAOBOOEPPTN0553-53-76 09:17:00 Test Item Value Reference Range Interpretation Comments Platelet (test code = Platelet) 149 133-450 [facility]neVxseljsSLQGEOAYDM6713-62-59 09:17:00 Test Item Value Reference Range Interpretation Comments WBC (test code = WBC) 7.3 3.7-10.4 [facility]neIvjriryKLDXQCNTOB5640-18-20 09:17:00 Test Item Value Reference Range Interpretation Comments Hct (test code = Hct) 39.8 36.0-48.0 [facility]neYoodhrkVWMDYPLHIN9449-29-87 09:17:00 Test Item Value Reference Range Interpretation Comments Hgb (test code = Hgb) 13.0 12.0-16.0 [facility]neSmxriedKVVYBXZBWI9348-06-51 09:17:00 Test Item Value Reference Range Interpretation Comments RBC (test code = RBC) 4.23 4.20-5.40 [facility]neQwwvwlhVSCAAKPPVW8607-24-94 09:17:00 Test Item Value Reference Range Interpretation Comments MCHC (test code = MCHC) 32.8 32.0-36.0 [facility]neNvwzpfzAAXPLYGKAX2892-41-97 09:17:00 Test Item Value Reference Range Interpretation Comments MCV (test code = MCV) 94.0 80.0-98.0 [facility]neUnscnanYLBOJNMSHA4722-87-45 09:17:00 Test Item Value Reference Range Interpretation Comments MCH (test code = MCH) 30.8 pg 27.0-31.0 [facility]neSgfppprMVTJGUCEAN5733-26-67 09:17:00 Test Item Value Reference Range Interpretation Comments RDW (test code = RDW) 13.5 11.5-14.5 [facility]neQbrecaySOECUQCFJL5967-31-89 09:17:00 Test Item Value Reference Range Interpretation Comments MPV (test code = MPV) 9.6 7.4-10.4 [facility]2016-07-30 09:17:00 Test Item Value Reference Range Interpretation Comments eGFR (test code = eGFR) 81 [facility]2016-07-30 09:17:00 Test Item Value Reference Range Interpretation Comments Creatinine Lvl (test code = Creatinine 0.73 0.50-1.40 Lvl) [facility]2016-07-30 09:17:00 Test Item Value Reference Range Interpretation Comments AST (test code = AST) 7 See_Comment [Auto mated message] The system which ge nerated this result transmit juan reference range : <=37. The reference range was not used to interpr et this result as lashonda l/abnormal. [facility]2016-07-30 09:17:00 Test Item Value Reference Range Interpretation Comments Total Protein (test code = Total 5.0 6.4-8.4 Protein) [facility]2016-07-30 09:17:00 Test Item Value Reference Range Interpretation Comments Alk Phos (test code = Alk Phos) 73 39-136 [facility]2016-07-30 09:17:00 Test Item Value Reference Range Interpretation Comments ALT (test code = ALT) 29 See_Comment [Auto mated message] The system which ge nerated this result transmit juan reference range : <=65. The reference range was not used to interpr et this result as lashonda l/abnormal. [facility]2016-07-30 09:17:00 Test Item Value Reference Range Interpretation Comments Bili Total (test code = Bili Total) 0.7 0.2-1.3 [facility]2016-07-30 09:17:00 Test Item Value Reference Range Interpretation Comments Albumin Lvl (test code = Albumin Lvl) 2.7 3.5-5.0 [facility]2016-07-30 09:17:00 Test Item Value Reference Range Interpretation Comments AGAP (test code = AGAP) 10.9 10.0-20.0 [facility]2016-07-30 09:17:00 Test Item Value Reference Range Interpretation Comments Calcium Lvl (test code = Calcium Lvl) 10.0 8.5-10.5 [facility]2016-07-30 09:17:00 Test Item Value Reference Range Interpretation Comments Glucose Lvl (test code = Glucose Lvl) 208 70-99 [facility]2016-07-30 09:17:00 Test Item Value Reference Range Interpretation Comments Potassium Lvl (test code = Potassium 3.9 3.5-5.1 Lvl) [facility]2016-07-30 09:17:00 Test Item Value Reference Range Interpretation Comments BUN (test code = BUN) 20 7-22 [facility]2016-07-30 09:17:00 Test Item Value Reference Range Interpretation Comments Sodium Lvl (test code = Sodium Lvl) 145 135-145 [facility]2016-07-30 09:17:00 Test Item Value Reference Range Interpretation Comments Chloride Lvl (test code = Chloride Lvl) 109 95-109 [facility]2016-07-30 09:17:00 Test Item Value Reference Range Interpretation Comments CO2 (test code = CO2) 29 24-32 [facility]2016-07-30 09:17:00 Test Item Value Reference Range Interpretation Comments B/C Ratio (test code = B/C Ratio) 27 6-25 [facility]2016-07-30 09:17:00 Test Item Value Reference Range Interpretation Comments A/G Ratio (test code = A/G Ratio) 1.2 0.7-1.6 [facility]2016-07-30 09:17:00 Test Item Value Reference Range Interpretation Comments Globulin (test code = Globulin) 2.3 2.0-4.0 [facility]neUjgzwyfSVBDCGDZPW5835-31-33 09:17:00 Test Item Value Reference Range Interpretation Comments Monocytes (test code = Monocytes) 11.7 2.0-12.0 [facility]neXqxpcgvZAIEIPZIAE2506-78-49 09:17:00 Test Item Value Reference Range Interpretation Comments Segs-Bands # (test code = Segs-Bands #) 4.9 1.5-8.1 [facility]neKwqpqicJDNRGGLIXI8112-09-25 09:17:00 Test Item Value Reference Range Interpretation Comments Basophils (test code = 0.4 See_Comment [Aut omated message] The Basophils) system which ge nerated this result tra nsmitted reference range : <=1.0. The reference r leatha was not used to int erpret this result as normal/abnormal . [facility]neKlgenmxKKDQEDTQBV4604-75-04 09:17:00 Test Item Value Reference Range Interpretation Comments Lymphocytes # (test code = Lymphocytes 1.3 1.0-5.5 #) [facility]neNkvwdxwTTEDNJAEMW8671-90-40 09:17:00 Test Item Value Reference Range Interpretation Comments Macrocyte (test code = 1+ *ABN*(01/15/16 Macrocyte) 4:17 AM) [facility]neXhhayzwFFKLCBYLBH7938-40-29 09:17:00 Test Item Value Reference Range Interpretation Comments Segs (test code = Segs) 67.7 45.0-75.0 [facility]neCgqjrmtJHRWWTWDMJ2508-72-43 09:17:00 Test Item Value Reference Range Interpretation Comments Lymphocytes (test code = Lymphocytes) 17.4 20.0-40.0 [facility]neOusgueyCYMPMGYXML9470-41-18 09:17:00 Test Item Value Reference Range Interpretation Comments Eosinophils (test code = 2.8 See_Comment [A utomated message] The Eosinophils) system which ge nerated this result tra nsmitted reference range : <=4.0. The reference r leatha was not used to int erpret this result as normal/abnormal . [facility]neHqtxewxCYKZSPPAYG0043-62-93 09:17:00 Test Item Value Reference Range Interpretation Comments Basophils # (test code 0.0 See_Comment [Aut omated message] The = Basophils #) system which generated this result tra nsmitted reference range : <=0.2. The reference r leatha was not used to int erpret this result as normal/abnormal . [facility]neFvwjqqyFILKYLUSPL1502-78-62 09:17:00 Test Item Value Reference Range Interpretation Comments Eosinophils # (test code 0.2 See_Comment [A utomated message] The = Eosinophils #) system whic h generated this result tra nsmitted reference range : <=0.5. The reference r leatha was not used to int erpret this result as normal/abnormal . [facility]neIrurltzUMJINQJQOF2358-78-83 09:17:00 Test Item Value Reference Range Interpretation Comments Monocytes # (test code 0.9 See_Comment [Aut omated message] The = Monocytes #) system which generated this result tra nsmitted reference range : <=0.8. The reference r leatha was not used to int erpret this result as normal/abnormal . [facility]neEqcgstoMQJROFKWTK1596-75-63 09:17:00 Test Item Value Reference Range Interpretation Comments Platelet (test code = Platelet) 149 133-450 [facility]neSesollbZUNQGWSGCJ4614-83-04 09:17:00 Test Item Value Reference Range Interpretation Comments WBC (test code = WBC) 7.3 3.7-10.4 [facility]neEvteehdKCTEPAEJTX8250-85-00 09:17:00 Test Item Value Reference Range Interpretation Comments Hct (test code = Hct) 39.8 36.0-48.0 [facility]neXquijniUXIWZCYSNT5447-93-38 09:17:00 Test Item Value Reference Range Interpretation Comments Hgb (test code = Hgb) 13.0 12.0-16.0 [facility]neCnffogpCCFUGDKDHY2646-01-04 09:17:00 Test Item Value Reference Range Interpretation Comments RBC (test code = RBC) 4.23 4.20-5.40 [facility]neDoowbzePMFYRJJYTM0354-20-31 09:17:00 Test Item Value Reference Range Interpretation Comments MCHC (test code = MCHC) 32.8 32.0-36.0 [facility]neGztjrzmZMIAKWPTMK2497-80-94 09:17:00 Test Item Value Reference Range Interpretation Comments MCV (test code = MCV) 94.0 80.0-98.0 [facility]neSejdcufLEIGVSAAVK8463-95-34 09:17:00 Test Item Value Reference Range Interpretation Comments MCH (test code = MCH) 30.8 pg 27.0-31.0 [facility]neJkbabkqGCCXLUEXSL3569-10-48 09:17:00 Test Item Value Reference Range Interpretation Comments RDW (test code = RDW) 13.5 11.5-14.5 [facility]neIxesfegHCZMTGFZTE4939-20-91 09:17:00 Test Item Value Reference Range Interpretation Comments MPV (test code = MPV) 9.6 7.4-10.4 [facility]2016-07-30 09:17:00 Test Item Value Reference Range Interpretation Comments eGFR (test code = eGFR) 81 [facility]2016-07-30 09:17:00 Test Item Value Reference Range Interpretation Comments Creatinine Lvl (test code = Creatinine 0.73 0.50-1.40 Lvl) [facility]2016-07-30 09:17:00 Test Item Value Reference Range Interpretation Comments AST (test code = AST) 7 See_Comment [Auto mated message] The system which ge nerated this result transmit juan reference range : <=37. The reference range was not used to interpr et this result as lashonda l/abnormal. [facility]2016-07-30 09:17:00 Test Item Value Reference Range Interpretation Comments Total Protein (test code = Total 5.0 6.4-8.4 Protein) [facility]2016-07-30 09:17:00 Test Item Value Reference Range Interpretation Comments Alk Phos (test code = Alk Phos) 73 39-136 [facility]2016-07-30 09:17:00 Test Item Value Reference Range Interpretation Comments ALT (test code = ALT) 29 See_Comment [Auto mated message] The system which ge nerated this result transmit juan reference range : <=65. The reference range was not used to interpr et this result as lashonda l/abnormal. [facility]2016-07-30 09:17:00 Test Item Value Reference Range Interpretation Comments Bili Total (test code = Bili Total) 0.7 0.2-1.3 [facility]2016-07-30 09:17:00 Test Item Value Reference Range Interpretation Comments Albumin Lvl (test code = Albumin Lvl) 2.7 3.5-5.0 [facility]2016-07-30 09:17:00 Test Item Value Reference Range Interpretation Comments AGAP (test code = AGAP) 10.9 10.0-20.0 [facility]2016-07-30 09:17:00 Test Item Value Reference Range Interpretation Comments Calcium Lvl (test code = Calcium Lvl) 10.0 8.5-10.5 [facility]2016-07-30 09:17:00 Test Item Value Reference Range Interpretation Comments Glucose Lvl (test code = Glucose Lvl) 208 70-99 [facility]2016-07-30 09:17:00 Test Item Value Reference Range Interpretation Comments Potassium Lvl (test code = Potassium 3.9 3.5-5.1 Lvl) [facility]2016-07-30 09:17:00 Test Item Value Reference Range Interpretation Comments BUN (test code = BUN) 20 7-22 [facility]2016-07-30 09:17:00 Test Item Value Reference Range Interpretation Comments Sodium Lvl (test code = Sodium Lvl) 145 135-145 [facility]2016-07-30 09:17:00 Test Item Value Reference Range Interpretation Comments Chloride Lvl (test code = Chloride Lvl) 109 95-109 [facility]2016-07-30 09:17:00 Test Item Value Reference Range Interpretation Comments CO2 (test code = CO2) 29 24-32 [facility]2016-07-30 09:17:00 Test Item Value Reference Range Interpretation Comments B/C Ratio (test code = B/C Ratio) 27 6-25 [facility]2016-07-30 09:17:00 Test Item Value Reference Range Interpretation Comments A/G Ratio (test code = A/G Ratio) 1.2 0.7-1.6 [facility]2016-07-30 09:17:00 Test Item Value Reference Range Interpretation Comments Globulin (test code = Globulin) 2.3 2.0-4.0 [facility]neAezyyyjFQMSMJPLEC6715-80-52 09:17:00 Test Item Value Reference Range Interpretation Comments Monocytes (test code = Monocytes) 11.7 2.0-12.0 [facility]neMvbrkqtHKTGBQJAKJ5346-46-88 09:17:00 Test Item Value Reference Range Interpretation Comments Segs-Bands # (test code = Segs-Bands #) 4.9 1.5-8.1 [facility]neCfgvkbyWETUYNHQIE5544-19-13 09:17:00 Test Item Value Reference Range Interpretation Comments Basophils (test code = 0.4 See_Comment [Aut omated message] The Basophils) system which ge nerated this result tra nsmitted reference range : <=1.0. The reference r leatha was not used to int erpret this result as normal/abnormal . [facility]neXhixirpRXUVXSZBCK6410-84-00 09:17:00 Test Item Value Reference Range Interpretation Comments Lymphocytes # (test code = Lymphocytes 1.3 1.0-5.5 #) [facility]neImnetlrRXAAOSTYUA1617-32-60 09:17:00 Test Item Value Reference Range Interpretation Comments Macrocyte (test code = 1+ *ABN*(01/15/16 Macrocyte) 4:17 AM) [facility]neUeqndxyMUDDOAUENR7679-15-40 09:17:00 Test Item Value Reference Range Interpretation Comments Segs (test code = Segs) 67.7 45.0-75.0 [facility]neGbbybvmUTSHLIXCVY8195-82-98 09:17:00 Test Item Value Reference Range Interpretation Comments Lymphocytes (test code = Lymphocytes) 17.4 20.0-40.0 [facility]neYgrfvvuAGMEEWIZZJ5464-94-83 09:17:00 Test Item Value Reference Range Interpretation Comments Eosinophils (test code = 2.8 See_Comment [A utomated message] The Eosinophils) system which ge nerated this result tra nsmitted reference range : <=4.0. The reference r leatha was not used to int erpret this result as normal/abnormal . [facility]nePvnkokjKNHHIMTBRV0803-40-94 09:17:00 Test Item Value Reference Range Interpretation Comments Basophils # (test code 0.0 See_Comment [Aut omated message] The = Basophils #) system which generated this result tra nsmitted reference range : <=0.2. The reference r leatha was not used to int erpret this result as normal/abnormal . [facility]neMnmvyrcWUXWGBKKBB5651-36-01 09:17:00 Test Item Value Reference Range Interpretation Comments Eosinophils # (test code 0.2 See_Comment [A utomated message] The = Eosinophils #) system whic h generated this result tra nsmitted reference range : <=0.5. The reference r leatha was not used to int erpret this result as normal/abnormal . [facility]neRawbpcuCHYIVWRUSI4204-57-51 09:17:00 Test Item Value Reference Range Interpretation Comments Monocytes # (test code 0.9 See_Comment [Aut omated message] The = Monocytes #) system which generated this result tra nsmitted reference range : <=0.8. The reference r leatha was not used to int erpret this result as normal/abnormal . [facility]neBrqgthpLLONAYUSSV0906-15-87 09:17:00 Test Item Value Reference Range Interpretation Comments Platelet (test code = Platelet) 149 133-450 [facility]neJwqtwuhXQZJLKWSDP4435-83-18 09:17:00 Test Item Value Reference Range Interpretation Comments WBC (test code = WBC) 7.3 3.7-10.4 [facility]neSrcmlosHCYPAVMJUV1511-58-31 09:17:00 Test Item Value Reference Range Interpretation Comments Hct (test code = Hct) 39.8 36.0-48.0 [facility] CleburneZfiddsvTZEJSIMRQM3809-74-71 09:17:00 Test Item Value Reference Range Interpretation Comments Hgb (test code = Hgb) 13.0 12.0-16.0 [facility]neMhuzoyzJIBOXXXELM0347-22-76 09:17:00 Test Item Value Reference Range Interpretation Comments RBC (test code = RBC) 4.23 4.20-5.40 [facility]burneLzhahmtFSEZWPIQLW8440-57-12 09:17:00 Test Item Value Reference Range Interpretation Comments MCHC (test code = MCHC) 32.8 32.0-36.0 [facility]neCwrxpotGYKQBVEERL4760-62-82 09:17:00 Test Item Value Reference Range Interpretation Comments MCV (test code = MCV) 94.0 80.0-98.0 [facility]neFfuebewYDANZJWPTS6249-93-84 09:17:00 Test Item Value Reference Range Interpretation Comments MCH (test code = MCH) 30.8 pg 27.0-31.0 [facility]neElkcrbwUWJLWEFGZG7119-64-13 09:17:00 Test Item Value Reference Range Interpretation Comments RDW (test code = RDW) 13.5 11.5-14.5 [facility]neSbryhoxUQNNJVPSNI7605-60-09 09:17:00 Test Item Value Reference Range Interpretation Comments MPV (test code = MPV) 9.6 7.4-10.4 [facility]2016-07-30 09:17:00 Test Item Value Reference Range Interpretation Comments eGFR (test code = eGFR) 81 [facility]2016-07-30 09:17:00 Test Item Value Reference Range Interpretation Comments Creatinine Lvl (test code = Creatinine 0.73 0.50-1.40 Lvl) [facility]2016-07-30 09:17:00 Test Item Value Reference Range Interpretation Comments AST (test code = AST) 7 See_Comment [Auto mated message] The system which ge nerated this result transmit juan reference range : <=37. The reference range was not used to interpr et this result as lashonda l/abnormal. [facility]2016-07-30 09:17:00 Test Item Value Reference Range Interpretation Comments Total Protein (test code = Total 5.0 6.4-8.4 Protein) [facility]2016-07-30 09:17:00 Test Item Value Reference Range Interpretation Comments Alk Phos (test code = Alk Phos) 73 39-136 [facility]2016-07-30 09:17:00 Test Item Value Reference Range Interpretation Comments ALT (test code = ALT) 29 See_Comment [Auto mated message] The system which ge nerated this result transmit juan reference range : <=65. The reference range was not used to interpr et this result as lashonda l/abnormal. [facility]2016-07-30 09:17:00 Test Item Value Reference Range Interpretation Comments Bili Total (test code = Bili Total) 0.7 0.2-1.3 [facility]2016-07-30 09:17:00 Test Item Value Reference Range Interpretation Comments Albumin Lvl (test code = Albumin Lvl) 2.7 3.5-5.0 [facility]2016-07-30 09:17:00 Test Item Value Reference Range Interpretation Comments AGAP (test code = AGAP) 10.9 10.0-20.0 [facility]2016-07-30 09:17:00 Test Item Value Reference Range Interpretation Comments Calcium Lvl (test code = Calcium Lvl) 10.0 8.5-10.5 [facility]2016-07-30 09:17:00 Test Item Value Reference Range Interpretation Comments Glucose Lvl (test code = Glucose Lvl) 208 70-99 [facility]2016-07-30 09:17:00 Test Item Value Reference Range Interpretation Comments Potassium Lvl (test code = Potassium 3.9 3.5-5.1 Lvl) [facility]2016-07-30 09:17:00 Test Item Value Reference Range Interpretation Comments BUN (test code = BUN) 20 7-22 [facility]2016-07-30 09:17:00 Test Item Value Reference Range Interpretation Comments Sodium Lvl (test code = Sodium Lvl) 145 135-145 [facility]2016-07-30 09:17:00 Test Item Value Reference Range Interpretation Comments Chloride Lvl (test code = Chloride Lvl) 109 95-109 [facility]2016-07-30 09:17:00 Test Item Value Reference Range Interpretation Comments CO2 (test code = CO2) 29 24-32 [facility]2016-07-30 09:17:00 Test Item Value Reference Range Interpretation Comments B/C Ratio (test code = B/C Ratio) 27 6-25 [facility]2016-07-30 09:17:00 Test Item Value Reference Range Interpretation Comments A/G Ratio (test code = A/G Ratio) 1.2 0.7-1.6 [facility]2016-07-30 09:17:00 Test Item Value Reference Range Interpretation Comments Globulin (test code = Globulin) 2.3 2.0-4.0 [facility]TthxdjzMUYROVZVXM8075-15-92 09:17:00 Test Item Value Reference Range Interpretation Comments Monocytes (test code = Monocytes) 11.7 2.0-12.0 [facility]neGegtawnYDYIWLCWXT4643-16-75 09:17:00 Test Item Value Reference Range Interpretation Comments Segs-Bands # (test code = Segs-Bands #) 4.9 1.5-8.1 [facility]neDnnvjukZUIILVORLV4733-39-88 09:17:00 Test Item Value Reference Range Interpretation Comments Basophils (test code = 0.4 See_Comment [Aut omated message] The Basophils) system which ge nerated this result tra nsmitted reference range : <=1.0. The reference r leatha was not used to int erpret this result as normal/abnormal . [facility]neZmchsvqKRFHSYZEKE6927-94-11 09:17:00 Test Item Value Reference Range Interpretation Comments Lymphocytes # (test code = Lymphocytes 1.3 1.0-5.5 #) [facility]neAxkiouuIJSMJSHOOE5831-84-13 09:17:00 Test Item Value Reference Range Interpretation Comments Macrocyte (test code = 1+ *ABN*(01/15/16 Macrocyte) 4:17 AM) [facility]neUumxryyLJPFHPZRJF6856-04-50 09:17:00 Test Item Value Reference Range Interpretation Comments Segs (test code = Segs) 67.7 45.0-75.0 [facility]neAzwtydtWULYCFELXJ5646-27-94 09:17:00 Test Item Value Reference Range Interpretation Comments Lymphocytes (test code = Lymphocytes) 17.4 20.0-40.0 [facility]neFmcpjgkMQPSKIRDHQ1531-07-60 09:17:00 Test Item Value Reference Range Interpretation Comments Eosinophils (test code = 2.8 See_Comment [A utomated message] The Eosinophils) system which ge nerated this result tra nsmitted reference range : <=4.0. The reference r leatha was not used to int erpret this result as normal/abnormal . [facility]neVdptyblXRNIQYWBNY3554-38-87 09:17:00 Test Item Value Reference Range Interpretation Comments Basophils # (test code 0.0 See_Comment [Aut omated message] The = Basophils #) system which generated this result tra nsmitted reference range : <=0.2. The reference r leatha was not used to int erpret this result as normal/abnormal . [facility]neTkezuozLMGZCYMSWV4217-91-24 09:17:00 Test Item Value Reference Range Interpretation Comments Eosinophils # (test code 0.2 See_Comment [A utomated message] The = Eosinophils #) system whic h generated this result tra nsmitted reference range : <=0.5. The reference r leatha was not used to int erpret this result as normal/abnormal . [facility]neEukmbneCKKMIBPOVZ3893-99-16 09:17:00 Test Item Value Reference Range Interpretation Comments Monocytes # (test code 0.9 See_Comment [Aut omated message] The = Monocytes #) system which generated this result tra nsmitted reference range : <=0.8. The reference r leatha was not used to int erpret this result as normal/abnormal . [facility]neAexwoqaBWGQMPDNLK7393-01-22 09:17:00 Test Item Value Reference Range Interpretation Comments Platelet (test code = Platelet) 149 133-450 [facility]neZesrazkRIGTYQZWXX6480-26-38 09:17:00 Test Item Value Reference Range Interpretation Comments WBC (test code = WBC) 7.3 3.7-10.4 [facility]neBymynjvWACZSXZSUN3218-87-57 09:17:00 Test Item Value Reference Range Interpretation Comments Hct (test code = Hct) 39.8 36.0-48.0 [facility]neUnxcixzZUYTBKWRKL2457-45-00 09:17:00 Test Item Value Reference Range Interpretation Comments Hgb (test code = Hgb) 13.0 12.0-16.0 [facility]neZvsnyotUBJRSJSZPL1901-32-60 09:17:00 Test Item Value Reference Range Interpretation Comments RBC (test code = RBC) 4.23 4.20-5.40 [facility]neLoacvquNZDMONPAGU3375-98-02 09:17:00 Test Item Value Reference Range Interpretation Comments MCHC (test code = MCHC) 32.8 32.0-36.0 [facility]neCxdpeqjZDFDJRRWUO0816-70-63 09:17:00 Test Item Value Reference Range Interpretation Comments MCV (test code = MCV) 94.0 80.0-98.0 [facility]neLdraltiXOEIMLREGG0421-67-73 09:17:00 Test Item Value Reference Range Interpretation Comments MCH (test code = MCH) 30.8 pg 27.0-31.0 [place] 387106-07-30 09:17:00 Test Item Value Reference Range Interpretation Comments RDW (test code = RDW) 13.5 11.5-14.5 [facility]neXsphnnsFZIUEDJENG6776-57-19 09:17:00 Test Item Value Reference Range Interpretation Comments MPV (test code = MPV) 9.6 7.4-10.4 [facility]2016-07-30 09:17:00 Test Item Value Reference Range Interpretation Comments eGFR (test code = eGFR) 81 [facility]2016-07-30 09:17:00 Test Item Value Reference Range Interpretation Comments Creatinine Lvl (test code = Creatinine 0.73 0.50-1.40 Lvl) [facility]2016-07-30 09:17:00 Test Item Value Reference Range Interpretation Comments AST (test code = AST) 7 See_Comment [Auto mated message] The system which ge nerated this result transmit juan reference range : <=37. The reference range was not used to interpr et this result as lashonda l/abnormal. [facility]2016-07-30 09:17:00 Test Item Value Reference Range Interpretation Comments Total Protein (test code = Total 5.0 6.4-8.4 Protein) [facility]2016-07-30 09:17:00 Test Item Value Reference Range Interpretation Comments Alk Phos (test code = Alk Phos) 73 39-136 [facility]2016-07-30 09:17:00 Test Item Value Reference Range Interpretation Comments ALT (test code = ALT) 29 See_Comment [Auto mated message] The system which ge nerated this result transmit juan reference range : <=65. The reference range was not used to interpr et this result as lashonda l/abnormal. [facility]2016-07-30 09:17:00 Test Item Value Reference Range Interpretation Comments Bili Total (test code = Bili Total) 0.7 0.2-1.3 [place] 984416-07-30 09:17:00 Test Item Value Reference Range Interpretation Comments Albumin Lvl (test code = Albumin Lvl) 2.7 3.5-5.0 [facility]2016-07-30 09:17:00 Test Item Value Reference Range Interpretation Comments AGAP (test code = AGAP) 10.9 10.0-20.0 [facility]2016-07-30 09:17:00 Test Item Value Reference Range Interpretation Comments Calcium Lvl (test code = Calcium Lvl) 10.0 8.5-10.5 [facility]2016-07-30 09:17:00 Test Item Value Reference Range Interpretation Comments Glucose Lvl (test code = Glucose Lvl) 208 70-99 [facility]2016-07-30 09:17:00 Test Item Value Reference Range Interpretation Comments Potassium Lvl (test code = Potassium 3.9 3.5-5.1 Lvl) [facility]2016-07-30 09:17:00 Test Item Value Reference Range Interpretation Comments BUN (test code = BUN) 20 7-22 [facility]2016-07-30 09:17:00 Test Item Value Reference Range Interpretation Comments Sodium Lvl (test code = Sodium Lvl) 145 135-145 [facility]2016-07-30 09:17:00 Test Item Value Reference Range Interpretation Comments Chloride Lvl (test code = Chloride Lvl) 109 95-109 [facility]2016-07-30 09:17:00 Test Item Value Reference Range Interpretation Comments CO2 (test code = CO2) 29 24-32 [facility]2016-07-30 09:17:00 Test Item Value Reference Range Interpretation Comments B/C Ratio (test code = B/C Ratio) 27 6-25 [facility]2016-07-30 09:17:00 Test Item Value Reference Range Interpretation Comments A/G Ratio (test code = A/G Ratio) 1.2 0.7-1.6 [facility]2016-07-30 09:17:00 Test Item Value Reference Range Interpretation Comments Globulin (test code = Globulin) 2.3 2.0-4.0 [facility]neLixniknXWXDOXWIWK8257-94-06 09:17:00 Test Item Value Reference Range Interpretation Comments Monocytes (test code = Monocytes) 11.7 2.0-12.0 [facility]neZcevsihOURJXPMRQS6954-04-47 09:17:00 Test Item Value Reference Range Interpretation Comments Segs-Bands # (test code = Segs-Bands #) 4.9 1.5-8.1 [facility]neXqirekoXVLROQYQKV9614-84-14 09:17:00 Test Item Value Reference Range Interpretation Comments Basophils (test code = 0.4 See_Comment [Aut omated message] The Basophils) system which ge nerated this result tra nsmitted reference range : <=1.0. The reference r leatha was not used to int erpret this result as normal/abnormal . [facility]neMvrdxowWFNLSWZYQF1063-41-03 09:17:00 Test Item Value Reference Range Interpretation Comments Lymphocytes # (test code = Lymphocytes 1.3 1.0-5.5 #) [facility]neFxqbcrdNMBROSNTYJ2468-97-66 09:17:00 Test Item Value Reference Range Interpretation Comments Macrocyte (test code = 1+ *ABN*(01/15/16 Macrocyte) 4:17 AM) [facility]neXltlbutUOTDTCTNGJ3886-26-95 09:17:00 Test Item Value Reference Range Interpretation Comments Segs (test code = Segs) 67.7 45.0-75.0 [facility]nePbsagxoVEGBBWFCHQ3511-26-73 09:17:00 Test Item Value Reference Range Interpretation Comments Lymphocytes (test code = Lymphocytes) 17.4 20.0-40.0 [facility]neLgpqmprLMLJJWYGHJ0506-72-89 09:17:00 Test Item Value Reference Range Interpretation Comments Eosinophils (test code = 2.8 See_Comment [A utomated message] The Eosinophils) system which ge nerated this result tra nsmitted reference range : <=4.0. The reference r leatha was not used to int erpret this result as normal/abnormal . [facility]neAdwutjgJTJQYVJFOK6620-86-79 09:17:00 Test Item Value Reference Range Interpretation Comments Basophils # (test code 0.0 See_Comment [Aut omated message] The = Basophils #) system which generated this result tra nsmitted reference range : <=0.2. The reference r leatha was not used to int erpret this result as normal/abnormal . [facility]neCrnjtgsBZYJAHSESA4391-83-64 09:17:00 Test Item Value Reference Range Interpretation Comments Eosinophils # (test code 0.2 See_Comment [A utomated message] The = Eosinophils #) system whic h generated this result tra nsmitted reference range : <=0.5. The reference r leatha was not used to int erpret this result as normal/abnormal . [facility]neUlurfnyHPCHWCOJFH2082-40-51 09:17:00 Test Item Value Reference Range Interpretation Comments Monocytes # (test code 0.9 See_Comment [Aut omated message] The = Monocytes #) system which generated this result tra nsmitted reference range : <=0.8. The reference r leatha was not used to int erpret this result as normal/abnormal . [facility]neVjrjitkLSOCPWWISN8422-10-85 09:17:00 Test Item Value Reference Range Interpretation Comments Platelet (test code = Platelet) 149 133-450 [facility]neGenngwdDVQMJHFBMB0571-35-46 09:17:00 Test Item Value Reference Range Interpretation Comments WBC (test code = WBC) 7.3 3.7-10.4 [facility]neSgxvmbzCXHLBDAEOW1078-49-16 09:17:00 Test Item Value Reference Range Interpretation Comments Hct (test code = Hct) 39.8 36.0-48.0 [facility]neYnrbqxiTMNHKUXRQD2076-46-78 09:17:00 Test Item Value Reference Range Interpretation Comments Hgb (test code = Hgb) 13.0 12.0-16.0 [facility]neCovpsiiICSYBSEPCP7388-58-18 09:17:00 Test Item Value Reference Range Interpretation Comments RBC (test code = RBC) 4.23 4.20-5.40 [facility]neKpvmdjwYMYQLLBRJM3549-78-73 09:17:00 Test Item Value Reference Range Interpretation Comments MCHC (test code = MCHC) 32.8 32.0-36.0 [facility]neJmhjbypNAKIVNSDTB5790-23-00 09:17:00 Test Item Value Reference Range Interpretation Comments MCV (test code = MCV) 94.0 80.0-98.0 [facility]neRmwpjdeCAHTBZVAWL8333-85-19 09:17:00 Test Item Value Reference Range Interpretation Comments MCH (test code = MCH) 30.8 pg 27.0-31.0 [facility]nePmpxiohJZSFFTNHYC7003-64-22 09:17:00 Test Item Value Reference Range Interpretation Comments RDW (test code = RDW) 13.5 11.5-14.5 [facility]neImvtqpsYKCLRLQXUT1678-51-41 09:17:00 Test Item Value Reference Range Interpretation Comments MPV (test code = MPV) 9.6 7.4-10.4 [facility]2016-07-30 09:17:00 Test Item Value Reference Range Interpretation Comments eGFR (test code = eGFR) 81 [facility]2016-07-30 09:17:00 Test Item Value Reference Range Interpretation Comments Creatinine Lvl (test code = Creatinine 0.73 0.50-1.40 Lvl) [place] 984416-07-30 09:17:00 Test Item Value Reference Range Interpretation Comments AST (test code = AST) 7 See_Comment [Auto mated message] The system which ge nerated this result transmit juan reference range : <=37. The reference range was not used to interpr et this result as lashonda l/abnormal. [facility]2016-07-30 09:17:00 Test Item Value Reference Range Interpretation Comments Total Protein (test code = Total 5.0 6.4-8.4 Protein) [facility]2016-07-30 09:17:00 Test Item Value Reference Range Interpretation Comments Alk Phos (test code = Alk Phos) 73 39-136 [facility]2016-07-30 09:17:00 Test Item Value Reference Range Interpretation Comments ALT (test code = ALT) 29 See_Comment [Auto mated message] The system which ge nerated this result transmit juan reference range : <=65. The reference range was not used to interpr et this result as lashonda l/abnormal. [facility]2016-07-30 09:17:00 Test Item Value Reference Range Interpretation Comments Bili Total (test code = Bili Total) 0.7 0.2-1.3 [facility]2016-07-30 09:17:00 Test Item Value Reference Range Interpretation Comments Albumin Lvl (test code = Albumin Lvl) 2.7 3.5-5.0 [facility]2016-07-30 09:17:00 Test Item Value Reference Range Interpretation Comments AGAP (test code = AGAP) 10.9 10.0-20.0 [facility]2016-07-30 09:17:00 Test Item Value Reference Range Interpretation Comments Calcium Lvl (test code = Calcium Lvl) 10.0 8.5-10.5 [facility]2016-07-30 09:17:00 Test Item Value Reference Range Interpretation Comments Glucose Lvl (test code = Glucose Lvl) 208 70-99 [facility]2016-07-30 09:17:00 Test Item Value Reference Range Interpretation Comments Potassium Lvl (test code = Potassium 3.9 3.5-5.1 Lvl) [facility]2016-07-30 09:17:00 Test Item Value Reference Range Interpretation Comments BUN (test code = BUN) 20 7-22 [facility]2016-07-30 09:17:00 Test Item Value Reference Range Interpretation Comments Sodium Lvl (test code = Sodium Lvl) 145 135-145 [place] 984416-07-30 09:17:00 Test Item Value Reference Range Interpretation Comments Chloride Lvl (test code = Chloride Lvl) 109 95-109 [facility]2016-07-30 09:17:00 Test Item Value Reference Range Interpretation Comments CO2 (test code = CO2) 29 24-32 [facility]2016-07-30 09:17:00 Test Item Value Reference Range Interpretation Comments B/C Ratio (test code = B/C Ratio) 27 6-25 [facility]2016-07-30 09:17:00 Test Item Value Reference Range Interpretation Comments A/G Ratio (test code = A/G Ratio) 1.2 0.7-1.6 [place] 984416-07-30 09:17:00 Test Item Value Reference Range Interpretation Comments Globulin (test code = Globulin) 2.3 2.0-4.0 [facility]neNbyewcvKUWBGAXULT4784-35-66 09:17:00 Test Item Value Reference Range Interpretation Comments Monocytes (test code = Monocytes) 11.7 2.0-12.0 [facility]neWczwrblDWTKADLPQP7239-90-65 09:17:00 Test Item Value Reference Range Interpretation Comments Segs-Bands # (test code = Segs-Bands #) 4.9 1.5-8.1 [facility]neRtymxxsTTCJRNDDMV4984-94-17 09:17:00 Test Item Value Reference Range Interpretation Comments Basophils (test code = 0.4 See_Comment [Aut omated message] The Basophils) system which ge nerated this result tra nsmitted reference range : <=1.0. The reference r leatha was not used to int erpret this result as normal/abnormal . [place] 387106-07-30 09:17:00 Test Item Value Reference Range Interpretation Comments Lymphocytes # (test code = Lymphocytes 1.3 1.0-5.5 #) [facility]neVwidsffIALKTXZZUT4311-40-10 09:17:00 Test Item Value Reference Range Interpretation Comments Macrocyte (test code = 1+ *ABN*(01/15/16 Macrocyte) 4:17 AM) [facility]neWtvarfdVGQIJMLCHK2457-52-83 09:17:00 Test Item Value Reference Range Interpretation Comments Segs (test code = Segs) 67.7 45.0-75.0 [facility]neSvzznhwWPKCZRMMJH6464-68-01 09:17:00 Test Item Value Reference Range Interpretation Comments Lymphocytes (test code = Lymphocytes) 17.4 20.0-40.0 [facility]neEwpxtkbBBPMWRTBSR9649-96-40 09:17:00 Test Item Value Reference Range Interpretation Comments Eosinophils (test code = 2.8 See_Comment [A utomated message] The Eosinophils) system which ge nerated this result tra nsmitted reference range : <=4.0. The reference r leatha was not used to int erpret this result as normal/abnormal . [facility]neWsxkznnYLOZDWVVED5516-32-18 09:17:00 Test Item Value Reference Range Interpretation Comments Basophils # (test code 0.0 See_Comment [Aut omated message] The = Basophils #) system which generated this result tra nsmitted reference range : <=0.2. The reference r leatha was not used to int erpret this result as normal/abnormal . [facility]neNypwgwsUIEUOUWGQA2542-04-86 09:17:00 Test Item Value Reference Range Interpretation Comments Eosinophils # (test code 0.2 See_Comment [A utomated message] The = Eosinophils #) system whic h generated this result tra nsmitted reference range : <=0.5. The reference r leatha was not used to int erpret this result as normal/abnormal . [facility]neWrhhgslJREMVHDJDL1015-60-05 09:17:00 Test Item Value Reference Range Interpretation Comments Monocytes # (test code 0.9 See_Comment [Aut omated message] The = Monocytes #) system which generated this result tra nsmitted reference range : <=0.8. The reference r leatha was not used to int erpret this result as normal/abnormal . [facility]neYirzekeFNLSLIIVPF8508-40-41 09:17:00 Test Item Value Reference Range Interpretation Comments Platelet (test code = Platelet) 149 133-450 [facility]neBpnstweSRBRSHMTAI2104-52-80 09:17:00 Test Item Value Reference Range Interpretation Comments WBC (test code = WBC) 7.3 3.7-10.4 [facility]neIldfgpyLOKFIKIQZU1022-28-97 09:17:00 Test Item Value Reference Range Interpretation Comments Hct (test code = Hct) 39.8 36.0-48.0 [facility]neGsvnzzaZQDHHYCUPJ7508-43-74 09:17:00 Test Item Value Reference Range Interpretation Comments Hgb (test code = Hgb) 13.0 12.0-16.0 [facility]neBtpigpiYNFNVABLZD8273-89-77 09:17:00 Test Item Value Reference Range Interpretation Comments RBC (test code = RBC) 4.23 4.20-5.40 [facility]neKbbjtvpKSFEZYMTTI9410-40-45 09:17:00 Test Item Value Reference Range Interpretation Comments MCHC (test code = MCHC) 32.8 32.0-36.0 [facility]neXnesnnlPGRWIKXIQD8002-92-38 09:17:00 Test Item Value Reference Range Interpretation Comments MCV (test code = MCV) 94.0 80.0-98.0 [facility]neNvhnfizFHUHVHSDGL1577-49-48 09:17:00 Test Item Value Reference Range Interpretation Comments MCH (test code = MCH) 30.8 pg 27.0-31.0 [facility]neKzfosoeSGDXIBNYGZ2853-01-75 09:17:00 Test Item Value Reference Range Interpretation Comments RDW (test code = RDW) 13.5 11.5-14.5 [facility]neAyajxmhECDERGYISE4735-72-19 09:17:00 Test Item Value Reference Range Interpretation Comments MPV (test code = MPV) 9.6 7.4-10.4 [facility]2016-07-29 10:06:00 Test Item Value Reference Range Interpretation Comments Glucose Lvl (test code = Glucose Lvl) 133 70-99 [facility]2016-07-29 10:06:00 Test Item Value Reference Range Interpretation Comments BUN (test code = BUN) 15 7-22 [facility]2016-07-29 10:06:00 Test Item Value Reference Range Interpretation Comments AGAP (test code = AGAP) 11.7 10.0-20.0 [facility]2016-07-29 10:06:00 Test Item Value Reference Range Interpretation Comments Calcium Lvl (test code = Calcium Lvl) 10.1 8.5-10.5 [facility]2016-07-29 10:06:00 Test Item Value Reference Range Interpretation Comments Potassium Lvl (test code = Potassium 3.7 3.5-5.1 Lvl) [facility]2016-07-29 10:06:00 Test Item Value Reference Range Interpretation Comments Sodium Lvl (test code = Sodium Lvl) 145 135-145 [facility]2016-07-29 10:06:00 Test Item Value Reference Range Interpretation Comments CO2 (test code = CO2) 28 24-32 [facility]2016-07-29 10:06:00 Test Item Value Reference Range Interpretation Comments Chloride Lvl (test code = Chloride Lvl) 109 95-109 [facility]2016-07-29 10:06:00 Test Item Value Reference Range Interpretation Comments Creatinine Lvl (test code = Creatinine 0.70 0.50-1.40 Lvl) [facility]2016-07-29 10:06:00 Test Item Value Reference Range Interpretation Comments eGFR (test code = eGFR) 86 [facility]2016-07-29 10:06:00 Test Item Value Reference Range Interpretation Comments Glucose Lvl (test code = Glucose Lvl) 133 70-99 [facility]2016-07-29 10:06:00 Test Item Value Reference Range Interpretation Comments BUN (test code = BUN) 15 7-22 [facility]2016-07-29 10:06:00 Test Item Value Reference Range Interpretation Comments AGAP (test code = AGAP) 11.7 10.0-20.0 [facility]2016-07-29 10:06:00 Test Item Value Reference Range Interpretation Comments Calcium Lvl (test code = Calcium Lvl) 10.1 8.5-10.5 [facility]2016-07-29 10:06:00 Test Item Value Reference Range Interpretation Comments Potassium Lvl (test code = Potassium 3.7 3.5-5.1 Lvl) [facility]2016-07-29 10:06:00 Test Item Value Reference Range Interpretation Comments Sodium Lvl (test code = Sodium Lvl) 145 135-145 [facility]2016-07-29 10:06:00 Test Item Value Reference Range Interpretation Comments CO2 (test code = CO2) [facility]2016-07-29 10:06:00 Test Item Value Reference Range Interpretation Comments Chloride Lvl (test code = Chloride Lvl) 109 95-109 [facility]2016-07-29 10:06:00 Test Item Value Reference Range Interpretation Comments Creatinine Lvl (test code = Creatinine 0.70 0.50-1.40 Lvl) [facility]2016-07-29 10:06:00 Test Item Value Reference Range Interpretation Comments eGFR (test code = eGFR) 86 [facility]2016-07-29 10:06:00 Test Item Value Reference Range Interpretation Comments Glucose Lvl (test code = Glucose Lvl) 133 70-99 [facility]2016-07-29 10:06:00 Test Item Value Reference Range Interpretation Comments BUN (test code = BUN) 15 7-22 [facility]2016-07-29 10:06:00 Test Item Value Reference Range Interpretation Comments AGAP (test code = AGAP) 11.7 10.0-20.0 [facility]2016-07-29 10:06:00 Test Item Value Reference Range Interpretation Comments Calcium Lvl (test code = Calcium Lvl) 10.1 8.5-10.5 [facility]2016-07-29 10:06:00 Test Item Value Reference Range Interpretation Comments Potassium Lvl (test code = Potassium 3.7 3.5-5.1 Lvl) [facility]2016-07-29 10:06:00 Test Item Value Reference Range Interpretation Comments Sodium Lvl (test code = Sodium Lvl) 145 135-145 [facility]2016-07-29 10:06:00 Test Item Value Reference Range Interpretation Comments CO2 (test code = CO2) [facility]2016-07-29 10:06:00 Test Item Value Reference Range Interpretation Comments Chloride Lvl (test code = Chloride Lvl) 109 95-109 [facility]2016-07-29 10:06:00 Test Item Value Reference Range Interpretation Comments Creatinine Lvl (test code = Creatinine 0.70 0.50-1.40 Lvl) [facility]2016-07-29 10:06:00 Test Item Value Reference Range Interpretation Comments eGFR (test code = eGFR) 86 [facility]2016-07-29 10:06:00 Test Item Value Reference Range Interpretation Comments Glucose Lvl (test code = Glucose Lvl) 133 70-99 [facility]2016-07-29 10:06:00 Test Item Value Reference Range Interpretation Comments BUN (test code = BUN) 15 7-22 [facility]2016-07-29 10:06:00 Test Item Value Reference Range Interpretation Comments AGAP (test code = AGAP) 11.7 10.0-20.0 [facility]2016-07-29 10:06:00 Test Item Value Reference Range Interpretation Comments Calcium Lvl (test code = Calcium Lvl) 10.1 8.5-10.5 [facility]2016-07-29 10:06:00 Test Item Value Reference Range Interpretation Comments Potassium Lvl (test code = Potassium 3.7 3.5-5.1 Lvl) [facility]2016-07-29 10:06:00 Test Item Value Reference Range Interpretation Comments Sodium Lvl (test code = Sodium Lvl) 145 135-145 [facility]2016-07-29 10:06:00 Test Item Value Reference Range Interpretation Comments CO2 (test code = CO2) 28 24-32 [facility]2016-07-29 10:06:00 Test Item Value Reference Range Interpretation Comments Chloride Lvl (test code = Chloride Lvl) 109 95-109 [facility]2016-07-29 10:06:00 Test Item Value Reference Range Interpretation Comments Creatinine Lvl (test code = Creatinine 0.70 0.50-1.40 Lvl) [facility]2016-07-29 10:06:00 Test Item Value Reference Range Interpretation Comments eGFR (test code = eGFR) 86 [facility]2016-07-29 10:06:00 Test Item Value Reference Range Interpretation Comments Glucose Lvl (test code = Glucose Lvl) 133 70-99 [facility]2016-07-29 10:06:00 Test Item Value Reference Range Interpretation Comments BUN (test code = BUN) 15 7- [facility]2016-07-29 10:06:00 Test Item Value Reference Range Interpretation Comments AGAP (test code = AGAP) 11.7 10.0-20.0 [facility]2016-07-29 10:06:00 Test Item Value Reference Range Interpretation Comments Calcium Lvl (test code = Calcium Lvl) 10.1 8.5-10.5 [facility]2016-07-29 10:06:00 Test Item Value Reference Range Interpretation Comments Potassium Lvl (test code = Potassium 3.7 3.5-5.1 Lvl) [facility]2016-07-29 10:06:00 Test Item Value Reference Range Interpretation Comments Sodium Lvl (test code = Sodium Lvl) 145 135-145 [facility]2016-07-29 10:06:00 Test Item Value Reference Range Interpretation Comments CO2 (test code = CO2) 28 24-32 [facility]2016-07-29 10:06:00 Test Item Value Reference Range Interpretation Comments Chloride Lvl (test code = Chloride Lvl) 109 95-109 [facility]2016-07-29 10:06:00 Test Item Value Reference Range Interpretation Comments Creatinine Lvl (test code = Creatinine 0.70 0.50-1.40 Lvl) [facility]2016-07-29 10:06:00 Test Item Value Reference Range Interpretation Comments eGFR (test code = eGFR) 86 [facility]2016-07-29 10:06:00 Test Item Value Reference Range Interpretation Comments Glucose Lvl (test code = Glucose Lvl) 133 70-99 [facility]2016-07-29 10:06:00 Test Item Value Reference Range Interpretation Comments BUN (test code = BUN) 15 - [facility]2016-07-29 10:06:00 Test Item Value Reference Range Interpretation Comments AGAP (test code = AGAP) 11.7 10.0-20.0 [facility]2016-07-29 10:06:00 Test Item Value Reference Range Interpretation Comments Calcium Lvl (test code = Calcium Lvl) 10.1 8.5-10.5 [facility]2016-07-29 10:06:00 Test Item Value Reference Range Interpretation Comments Potassium Lvl (test code = Potassium 3.7 3.5-5.1 Lvl) [facility]2016-07-29 10:06:00 Test Item Value Reference Range Interpretation Comments Sodium Lvl (test code = Sodium Lvl) 145 135-145 [facility]2016-07-29 10:06:00 Test Item Value Reference Range Interpretation Comments CO2 (test code = CO2) 28 24-32 [facility]2016-07-29 10:06:00 Test Item Value Reference Range Interpretation Comments Chloride Lvl (test code = Chloride Lvl) 109 95-109 [facility]2016-07-29 10:06:00 Test Item Value Reference Range Interpretation Comments Creatinine Lvl (test code = Creatinine 0.70 0.50-1.40 Lvl) [facility]2016-07-29 10:06:00 Test Item Value Reference Range Interpretation Comments eGFR (test code = eGFR) 86 [facility]2016-07-28 10:43:00 Test Item Value Reference Range Interpretation Comments Total Protein (test code = Total 4.9 6.4-8.4 Protein) [facility]2016-07-28 10:43:00 Test Item Value Reference Range Interpretation Comments Alk Phos (test code = Alk Phos) 60 39-136 [facility]2016-07-28 10:43:00 Test Item Value Reference Range Interpretation Comments Bili Total (test code = Bili Total) 0.4 0.2-1.3 [facility]2016-07-28 10:43:00 Test Item Value Reference Range Interpretation Comments ALT (test code = ALT) 22 See_Comment [Auto mated message] The system which ge nerated this result transmit juan reference range : <=65. The reference range was not used to interpr et this result as lashonda l/abnormal. [facility]2016-07-28 10:43:00 Test Item Value Reference Range Interpretation Comments AST (test code = AST) 12 See_Comment [Auto mated message] The system which ge nerated this result transmit juan reference range : <=37. The reference range was not used to interpr et this result as lashonda l/abnormal. [facility]2016-07-28 10:43:00 Test Item Value Reference Range Interpretation Comments Albumin Lvl (test code = Albumin Lvl) 2.7 3.5-5.0 [facility]2016-07-28 10:43:00 Test Item Value Reference Range Interpretation Comments Globulin (test code = Globulin) 2.2 2.0-4.0 [facility]2016-07-28 10:43:00 Test Item Value Reference Range Interpretation Comments A/G Ratio (test code = A/G Ratio) 1.2 0.7-1.6 [facility]2016-07-28 10:43:00 Test Item Value Reference Range Interpretation Comments B/C Ratio (test code = B/C Ratio) 23 6-25 [facility]CrjhvmxLXNYZFASDV7327-12-02 10:43:00 Test Item Value Reference Range Interpretation Comments RBC (test code = RBC) 4.18 4.20-5.40 [facility]neBfbknmkYCAJMQOFHK9983-65-36 10:43:00 Test Item Value Reference Range Interpretation Comments WBC (test code = WBC) 6.7 3.7-10.4 [facility]neOhzirogLRXGHPQRUT2076-18-00 10:43:00 Test Item Value Reference Range Interpretation Comments MPV (test code = MPV) 9.3 7.4-10.4 [facility]neWnmuluhSIGLNPIYCC5963-40-68 10:43:00 Test Item Value Reference Range Interpretation Comments Platelet (test code = Platelet) 159 133-450 [facility]nePhagtiuDKLHJCLSCI7158-91-06 10:43:00 Test Item Value Reference Range Interpretation Comments RDW (test code = RDW) 12.8 11.5-14.5 [facility]neVsiiifnCCMAUFHRPW2253-37-74 10:43:00 Test Item Value Reference Range Interpretation Comments MCH (test code = MCH) 30.7 pg 27.0-31.0 [facility]neKukgtwlGQWBXWHFUT8158-54-28 10:43:00 Test Item Value Reference Range Interpretation Comments MCV (test code = MCV) 93.8 80.0-98.0 [facility]neTnkkmhbAPWOQUNDKT4927-56-81 10:43:00 Test Item Value Reference Range Interpretation Comments Hct (test code = Hct) 39.2 36.0-48.0 [facility]neJcsbttzCGPMFYEWLN9861-85-74 10:43:00 Test Item Value Reference Range Interpretation Comments Hgb (test code = Hgb) 12.8 12.0-16.0 [facility]neCskhvoxSPPBRNAEDN2900-65-74 10:43:00 Test Item Value Reference Range Interpretation Comments MCHC (test code = MCHC) 32.8 32.0-36.0 [facility]neLazvzrtMGRJJKTIEK2029-49-05 10:43:00 Test Item Value Reference Range Interpretation Comments Lymphocytes (test code = Lymphocytes) 21.4 20.0-40.0 [facility]nePmapjbbEDASVPYPXK8197-13-71 10:43:00 Test Item Value Reference Range Interpretation Comments Segs (test code = Segs) 64.1 45.0-75.0 [facility]neZxtmpluCIATLWDLDU6828-36-22 10:43:00 Test Item Value Reference Range Interpretation Comments Eosinophils (test code = 3.1 See_Comment [A utomated message] The Eosinophils) system which ge nerated this result tra nsmitted reference range : <=4.0. The reference r leatha was not used to int erpret this result as normal/abnormal . [facility]neGnxkcyyULQCJOLLLY7559-81-16 10:43:00 Test Item Value Reference Range Interpretation Comments Monocytes (test code = Monocytes) 10.9 2.0-12.0 [facility]neYocxarpCLPBGRDYBS3540-55-35 10:43:00 Test Item Value Reference Range Interpretation Comments Basophils (test code = 0.5 See_Comment [Aut omated message] The Basophils) system which ge nerated this result tra nsmitted reference range : <=1.0. The reference r leatha was not used to int erpret this result as normal/abnormal . [facility]neMkswiyhWQVMEVLDQD5429-77-49 10:43:00 Test Item Value Reference Range Interpretation Comments Basophils # (test code 0.0 See_Comment [Aut omated message] The = Basophils #) system which generated this result tra nsmitted reference range : <=0.2. The reference r leatha was not used to int erpret this result as normal/abnormal . [facility]nePwplworEOOQZJBXYW2596-14-60 10:43:00 Test Item Value Reference Range Interpretation Comments Eosinophils # (test code 0.2 See_Comment [A utomated message] The = Eosinophils #) system whic h generated this result tra nsmitted reference range : <=0.5. The reference r leatha was not used to int erpret this result as normal/abnormal . [facility]neBztnvovZSVCEYIPSF5521-47-72 10:43:00 Test Item Value Reference Range Interpretation Comments Monocytes # (test code 0.7 See_Comment [Aut omated message] The = Monocytes #) system which generated this result tra nsmitted reference range : <=0.8. The reference r leatha was not used to int erpret this result as normal/abnormal . [facility]neOkxnuwnHHBBRKWDHQ0870-86-81 10:43:00 Test Item Value Reference Range Interpretation Comments Lymphocytes # (test code = Lymphocytes 1.4 1.0-5.5 #) [facility]neCgxqhpjPXMRAPOKIW1609-71-18 10:43:00 Test Item Value Reference Range Interpretation Comments Segs-Bands # (test code = Segs-Bands #) 4.3 1.5-8.1 [facility]2016-07-28 10:43:00 Test Item Value Reference Range Interpretation Comments Total Protein (test code = Total 4.9 6.4-8.4 Protein) [facility]2016-07-28 10:43:00 Test Item Value Reference Range Interpretation Comments Alk Phos (test code = Alk Phos) 60 39-136 [facility]2016-07-28 10:43:00 Test Item Value Reference Range Interpretation Comments Bili Total (test code = Bili Total) 0.4 0.2-1.3 [facility]2016-07-28 10:43:00 Test Item Value Reference Range Interpretation Comments ALT (test code = ALT) 22 See_Comment [Auto mated message] The system which ge nerated this result transmit juan reference range : <=65. The reference range was not used to interpr et this result as lashonda l/abnormal. [facility]2016-07-28 10:43:00 Test Item Value Reference Range Interpretation Comments AST (test code = AST) 12 See_Comment [Auto mated message] The system which ge nerated this result transmit juan reference range : <=37. The reference range was not used to interpr et this result as lashonda l/abnormal. [facility]2016-07-28 10:43:00 Test Item Value Reference Range Interpretation Comments Albumin Lvl (test code = Albumin Lvl) 2.7 3.5-5.0 [facility]2016-07-28 10:43:00 Test Item Value Reference Range Interpretation Comments Globulin (test code = Globulin) 2.2 2.0-4.0 [facility]2016-07-28 10:43:00 Test Item Value Reference Range Interpretation Comments A/G Ratio (test code = A/G Ratio) 1.2 0.7-1.6 [facility]2016-07-28 10:43:00 Test Item Value Reference Range Interpretation Comments B/C Ratio (test code = B/C Ratio) 23 6-25 [facility]neNetqlfcNBCNIEWHDL1455-59-33 10:43:00 Test Item Value Reference Range Interpretation Comments RBC (test code = RBC) 4.18 4.20-5.40 [facility]neJgfxqqjAYEZIHSMTV7206-01-79 10:43:00 Test Item Value Reference Range Interpretation Comments WBC (test code = WBC) 6.7 3.7-10.4 [facility]neLsuiqlwMZPWEKXFRL1176-07-65 10:43:00 Test Item Value Reference Range Interpretation Comments MPV (test code = MPV) 9.3 7.4-10.4 [facility]nePhcxyktFPGOBCANOM8774-68-50 10:43:00 Test Item Value Reference Range Interpretation Comments Platelet (test code = Platelet) 159 133-450 [facility]neJstvctrYPZYHVTYSH3366-67-16 10:43:00 Test Item Value Reference Range Interpretation Comments RDW (test code = RDW) 12.8 11.5-14.5 [facility]neJgifskjMNDSYTYBMV2504-90-08 10:43:00 Test Item Value Reference Range Interpretation Comments MCH (test code = MCH) 30.7 pg 27.0-31.0 [facility]neHhmfgqmYHSBKUAGOR8876-73-69 10:43:00 Test Item Value Reference Range Interpretation Comments MCV (test code = MCV) 93.8 80.0-98.0 [facility]neVeiguhdDZUVAOBXGN5974-43-24 10:43:00 Test Item Value Reference Range Interpretation Comments Hct (test code = Hct) 39.2 36.0-48.0 [facility]neJapbhqqBUHRQYTQKG0037-93-82 10:43:00 Test Item Value Reference Range Interpretation Comments Hgb (test code = Hgb) 12.8 12.0-16.0 [facility]neUntmqbmZSFACPDUSM7280-61-17 10:43:00 Test Item Value Reference Range Interpretation Comments MCHC (test code = MCHC) 32.8 32.0-36.0 [facility]neIpqhnwjVMRCPSBTLA3971-51-53 10:43:00 Test Item Value Reference Range Interpretation Comments Lymphocytes (test code = Lymphocytes) 21.4 20.0-40.0 [facility]neVcmvflyHOQLEDUEOJ9228-46-34 10:43:00 Test Item Value Reference Range Interpretation Comments Segs (test code = Segs) 64.1 45.0-75.0 [facility]neBrkdysmAQTDNHABNS3982-60-97 10:43:00 Test Item Value Reference Range Interpretation Comments Eosinophils (test code = 3.1 See_Comment [A utomated message] The Eosinophils) system which ge nerated this result tra nsmitted reference range : <=4.0. The reference r leatha was not used to int erpret this result as normal/abnormal . [facility]neYmkcmvdEEUHUDHXDX9903-97-23 10:43:00 Test Item Value Reference Range Interpretation Comments Monocytes (test code = Monocytes) 10.9 2.0-12.0 [facility]neEwwifxfODYVLVNWXW7299-19-94 10:43:00 Test Item Value Reference Range Interpretation Comments Basophils (test code = 0.5 See_Comment [Aut omated message] The Basophils) system which ge nerated this result tra nsmitted reference range : <=1.0. The reference r leatha was not used to int erpret this result as normal/abnormal . [facility]neRqadyurBZKPKIOEBB1582-63-96 10:43:00 Test Item Value Reference Range Interpretation Comments Basophils # (test code 0.0 See_Comment [Aut omated message] The = Basophils #) system which generated this result tra nsmitted reference range : <=0.2. The reference r leatha was not used to int erpret this result as normal/abnormal . [facility]neYrkzdbqGHSVWTWNQU0531-55-40 10:43:00 Test Item Value Reference Range Interpretation Comments Eosinophils # (test code 0.2 See_Comment [A utomated message] The = Eosinophils #) system whic h generated this result tra nsmitted reference range : <=0.5. The reference r leatha was not used to int erpret this result as normal/abnormal . [facility]neMqjxtlbEBQRTEODBF2785-31-39 10:43:00 Test Item Value Reference Range Interpretation Comments Monocytes # (test code 0.7 See_Comment [Aut omated message] The = Monocytes #) system which generated this result tra nsmitted reference range : <=0.8. The reference r leatha was not used to int erpret this result as normal/abnormal . [facility]neTgoexfbFOITNXMQLV5199-36-54 10:43:00 Test Item Value Reference Range Interpretation Comments Lymphocytes # (test code = Lymphocytes 1.4 1.0-5.5 #) [facility]neFowjwhsSBWSRLDUXA0929-73-56 10:43:00 Test Item Value Reference Range Interpretation Comments Segs-Bands # (test code = Segs-Bands #) 4.3 1.5-8.1 [facility]2016-07-28 10:43:00 Test Item Value Reference Range Interpretation Comments Total Protein (test code = Total 4.9 6.4-8.4 Protein) [facility]2016-07-28 10:43:00 Test Item Value Reference Range Interpretation Comments Alk Phos (test code = Alk Phos) 60 39-136 [facility]2016-07-28 10:43:00 Test Item Value Reference Range Interpretation Comments Bili Total (test code = Bili Total) 0.4 0.2-1.3 [facility]2016-07-28 10:43:00 Test Item Value Reference Range Interpretation Comments ALT (test code = ALT) 22 See_Comment [Auto mated message] The system which ge nerated this result transmit juan reference range : <=65. The reference range was not used to interpr et this result as lashonda l/abnormal. [facility]2016-07-28 10:43:00 Test Item Value Reference Range Interpretation Comments AST (test code = AST) 12 See_Comment [Auto mated message] The system which ge nerated this result transmit juan reference range : <=37. The reference range was not used to interpr et this result as lashonda l/abnormal. [facility]2016-07-28 10:43:00 Test Item Value Reference Range Interpretation Comments Albumin Lvl (test code = Albumin Lvl) 2.7 3.5-5.0 [facility]2016-07-28 10:43:00 Test Item Value Reference Range Interpretation Comments Globulin (test code = Globulin) 2.2 2.0-4.0 [facility]2016-07-28 10:43:00 Test Item Value Reference Range Interpretation Comments A/G Ratio (test code = A/G Ratio) 1.2 0.7-1.6 [facility]2016-07-28 10:43:00 Test Item Value Reference Range Interpretation Comments B/C Ratio (test code = B/C Ratio) 23 6-25 [facility]neEqdkosvONIBQUCQKO2755-18-07 10:43:00 Test Item Value Reference Range Interpretation Comments RBC (test code = RBC) 4.18 4.20-5.40 [facility]neJesfzjsELUSHIUHWP8120-60-29 10:43:00 Test Item Value Reference Range Interpretation Comments WBC (test code = WBC) 6.7 3.7-10.4 [facility]neDtikpmaGUEMMDVRHR4397-34-45 10:43:00 Test Item Value Reference Range Interpretation Comments MPV (test code = MPV) 9.3 7.4-10.4 [facility]neGgogcqhTLLPOGCEPO5886-17-41 10:43:00 Test Item Value Reference Range Interpretation Comments Platelet (test code = Platelet) 159 133-450 [facility]neAdbtthuMXNMHXAWBG8232-99-78 10:43:00 Test Item Value Reference Range Interpretation Comments RDW (test code = RDW) 12.8 11.5-14.5 [facility]neGmvugygTMOQADOAYE1233-59-19 10:43:00 Test Item Value Reference Range Interpretation Comments MCH (test code = MCH) 30.7 pg 27.0-31.0 [facility]neYemkxauTFVHSBLKUD9186-13-85 10:43:00 Test Item Value Reference Range Interpretation Comments MCV (test code = MCV) 93.8 80.0-98.0 [facility]neGlevzwrTJPCHNEWLT5412-09-01 10:43:00 Test Item Value Reference Range Interpretation Comments Hct (test code = Hct) 39.2 36.0-48.0 [facility]neHowyczvFHLJIAFLPT3571-87-23 10:43:00 Test Item Value Reference Range Interpretation Comments Hgb (test code = Hgb) 12.8 12.0-16.0 [facility]neMmkfivgJDUQIVHKKE5327-76-87 10:43:00 Test Item Value Reference Range Interpretation Comments MCHC (test code = MCHC) 32.8 32.0-36.0 [facility]neYsztnzvQWLLEUHFMU3454-43-51 10:43:00 Test Item Value Reference Range Interpretation Comments Lymphocytes (test code = Lymphocytes) 21.4 20.0-40.0 [facility]neWimcgweLITDFXFCDE3326-08-12 10:43:00 Test Item Value Reference Range Interpretation Comments Segs (test code = Segs) 64.1 45.0-75.0 [facility]neFmoipreLHHMILQEVD8405-50-57 10:43:00 Test Item Value Reference Range Interpretation Comments Eosinophils (test code = 3.1 See_Comment [A utomated message] The Eosinophils) system which ge nerated this result tra nsmitted reference range : <=4.0. The reference r leatha was not used to int erpret this result as normal/abnormal . [facility]neIcbvqwaIDHXKKQFRF6834-66-35 10:43:00 Test Item Value Reference Range Interpretation Comments Monocytes (test code = Monocytes) 10.9 2.0-12.0 [facility]neZjuixnwYXEZSXSCTM6782-84-22 10:43:00 Test Item Value Reference Range Interpretation Comments Basophils (test code = 0.5 See_Comment [Aut omated message] The Basophils) system which ge nerated this result tra nsmitted reference range : <=1.0. The reference r leatha was not used to int erpret this result as normal/abnormal . [facility]neHukrivnRFBTWTNPDC4544-03-01 10:43:00 Test Item Value Reference Range Interpretation Comments Basophils # (test code 0.0 See_Comment [Aut omated message] The = Basophils #) system which generated this result tra nsmitted reference range : <=0.2. The reference r leatha was not used to int erpret this result as normal/abnormal . [facility]AyhgljwASMFUEZKDT9160-35-96 10:43:00 Test Item Value Reference Range Interpretation Comments Eosinophils # (test code 0.2 See_Comment [A utomated message] The = Eosinophils #) system wh h generated this result tra nsmitted reference range : <=0.5. The reference r leatha was not used to int erpret this result as normal/abnormal . [facility]neYxmroywKEHDGGQTGB4393-95-41 10:43:00 Test Item Value Reference Range Interpretation Comments Monocytes # (test code 0.7 See_Comment [Aut omated message] The = Monocytes #) system which generated this result tra nsmitted reference range : <=0.8. The reference r leatha was not used to int erpret this result as normal/abnormal . [facility]neLhbmgxrLQMKILENEE1593-51-55 10:43:00 Test Item Value Reference Range Interpretation Comments Lymphocytes # (test code = Lymphocytes 1.4 1.0-5.5 #) [facility]neFpwiksqDALSBIMZBR2959-13-66 10:43:00 Test Item Value Reference Range Interpretation Comments Segs-Bands # (test code = Segs-Bands #) 4.3 1.5-8.1 [facility]2016-07-28 10:43:00 Test Item Value Reference Range Interpretation Comments Total Protein (test code = Total 4.9 6.4-8.4 Protein) [facility]2016-07-28 10:43:00 Test Item Value Reference Range Interpretation Comments Alk Phos (test code = Alk Phos) 60 39-136 [facility]2016-07-28 10:43:00 Test Item Value Reference Range Interpretation Comments Bili Total (test code = Bili Total) 0.4 0.2-1.3 [facility]2016-07-28 10:43:00 Test Item Value Reference Range Interpretation Comments ALT (test code = ALT) 22 See_Comment [Auto mated message] The system which ge nerated this result transmit juan reference range : <=65. The reference range was not used to interpr et this result as lashonda l/abnormal. [facility]2016-07-28 10:43:00 Test Item Value Reference Range Interpretation Comments AST (test code = AST) 12 See_Comment [Auto mated message] The system which ge nerated this result transmit juan reference range : <=37. The reference range was not used to interpr et this result as lashonda l/abnormal. [facility]2016-07-28 10:43:00 Test Item Value Reference Range Interpretation Comments Albumin Lvl (test code = Albumin Lvl) 2.7 3.5-5.0 [facility]2016-07-28 10:43:00 Test Item Value Reference Range Interpretation Comments Globulin (test code = Globulin) 2.2 2.0-4.0 [facility]2016-07-28 10:43:00 Test Item Value Reference Range Interpretation Comments A/G Ratio (test code = A/G Ratio) 1.2 0.7-1.6 [facility]2016-07-28 10:43:00 Test Item Value Reference Range Interpretation Comments B/C Ratio (test code = B/C Ratio) 23 6-25 [facility]neYdnxfpeLTQPTIMCSB1298-43-06 10:43:00 Test Item Value Reference Range Interpretation Comments RBC (test code = RBC) 4.18 4.20-5.40 [facility]neGhunfjnCLCAXOWTJY2694-74-30 10:43:00 Test Item Value Reference Range Interpretation Comments WBC (test code = WBC) 6.7 3.7-10.4 [facility]neHcykrmgWKQQBJIVYI8505-16-80 10:43:00 Test Item Value Reference Range Interpretation Comments MPV (test code = MPV) 9.3 7.4-10.4 [facility]neHjwffedJGOXXCZUCY7745-46-87 10:43:00 Test Item Value Reference Range Interpretation Comments Platelet (test code = Platelet) 159 133-450 [facility]neEohhdyfKFJFWXCXFT6631-06-93 10:43:00 Test Item Value Reference Range Interpretation Comments RDW (test code = RDW) 12.8 11.5-14.5 [facility]neEdskqgkOQFIIHSVMI0283-78-64 10:43:00 Test Item Value Reference Range Interpretation Comments MCH (test code = MCH) 30.7 pg 27.0-31.0 [facility]neYfzttgkOASYDTYGSS0760-42-18 10:43:00 Test Item Value Reference Range Interpretation Comments MCV (test code = MCV) 93.8 80.0-98.0 [facility]nePtwbojnFAUVVGSLBF3536-55-05 10:43:00 Test Item Value Reference Range Interpretation Comments Hct (test code = Hct) 39.2 36.0-48.0 [facility]neGkysoitHNZFPDFCDO8733-61-34 10:43:00 Test Item Value Reference Range Interpretation Comments Hgb (test code = Hgb) 12.8 12.0-16.0 [facility]neFahcxaxWDLCFQEIJG1863-91-61 10:43:00 Test Item Value Reference Range Interpretation Comments MCHC (test code = MCHC) 32.8 32.0-36.0 [facility]neHyxlgqxQNWZUTDYYH7635-03-36 10:43:00 Test Item Value Reference Range Interpretation Comments Lymphocytes (test code = Lymphocytes) 21.4 20.0-40.0 [facility]neDzcyizgVQVFSYGROW8889-91-80 10:43:00 Test Item Value Reference Range Interpretation Comments Segs (test code = Segs) 64.1 45.0-75.0 [facility]neEswlnduWMRERCGYSL4944-05-27 10:43:00 Test Item Value Reference Range Interpretation Comments Eosinophils (test code = 3.1 See_Comment [A utomated message] The Eosinophils) system which ge nerated this result tra nsmitted reference range : <=4.0. The reference r leatha was not used to int erpret this result as normal/abnormal . [facility]neRfsazpjCXRTOOUEDI4030-02-10 10:43:00 Test Item Value Reference Range Interpretation Comments Monocytes (test code = Monocytes) 10.9 2.0-12.0 [facility]neKalnfirZOMWBFMILV6999-84-31 10:43:00 Test Item Value Reference Range Interpretation Comments Basophils (test code = 0.5 See_Comment [Aut omated message] The Basophils) system which ge nerated this result tra nsmitted reference range : <=1.0. The reference r leatha was not used to int erpret this result as normal/abnormal . [facility]neMyvsuvfGJKTZPZZYD8333-23-34 10:43:00 Test Item Value Reference Range Interpretation Comments Basophils # (test code 0.0 See_Comment [Aut omated message] The = Basophils #) system which generated this result tra nsmitted reference range : <=0.2. The reference r leatha was not used to int erpret this result as normal/abnormal . [facility]neJjhvbesIMXKNEDHFC8371-73-36 10:43:00 Test Item Value Reference Range Interpretation Comments Eosinophils # (test code 0.2 See_Comment [A utomated message] The = Eosinophils #) system whic h generated this result tra nsmitted reference range : <=0.5. The reference r leatha was not used to int erpret this result as normal/abnormal . [facility]neXuvfikvDVTEOMYWYU9874-88-78 10:43:00 Test Item Value Reference Range Interpretation Comments Monocytes # (test code 0.7 See_Comment [Aut omated message] The = Monocytes #) system which generated this result tra nsmitted reference range : <=0.8. The reference r leatha was not used to int erpret this result as normal/abnormal . [facility]neKsbzesdDTWGYFCEID7674-43-21 10:43:00 Test Item Value Reference Range Interpretation Comments Lymphocytes # (test code = Lymphocytes 1.4 1.0-5.5 #) [facility]neNvsvxjzCYOOEUEGNF3247-67-02 10:43:00 Test Item Value Reference Range Interpretation Comments Segs-Bands # (test code = Segs-Bands #) 4.3 1.5-8.1 [facility]2016-07-28 10:43:00 Test Item Value Reference Range Interpretation Comments Total Protein (test code = Total 4.9 6.4-8.4 Protein) [facility]2016-07-28 10:43:00 Test Item Value Reference Range Interpretation Comments Alk Phos (test code = Alk Phos) 60 39-136 [facility]2016-07-28 10:43:00 Test Item Value Reference Range Interpretation Comments Bili Total (test code = Bili Total) 0.4 0.2-1.3 [facility]2016-07-28 10:43:00 Test Item Value Reference Range Interpretation Comments ALT (test code = ALT) 22 See_Comment [Auto mated message] The system which ge nerated this result transmit juan reference range : <=65. The reference range was not used to interpr et this result as lashonda l/abnormal. [facility]2016-07-28 10:43:00 Test Item Value Reference Range Interpretation Comments AST (test code = AST) 12 See_Comment [Auto mated message] The system which ge nerated this result transmit juan reference range : <=37. The reference range was not used to interpr et this result as lashonda l/abnormal. [facility]2016-07-28 10:43:00 Test Item Value Reference Range Interpretation Comments Albumin Lvl (test code = Albumin Lvl) 2.7 3.5-5.0 [facility]2016-07-28 10:43:00 Test Item Value Reference Range Interpretation Comments Globulin (test code = Globulin) 2.2 2.0-4.0 [facility]2016-07-28 10:43:00 Test Item Value Reference Range Interpretation Comments A/G Ratio (test code = A/G Ratio) 1.2 0.7-1.6 [facility]2016-07-28 10:43:00 Test Item Value Reference Range Interpretation Comments B/C Ratio (test code = B/C Ratio) 23 6-25 [facility]neZciaeugZSDCTTIQWU7016-51-83 10:43:00 Test Item Value Reference Range Interpretation Comments RBC (test code = RBC) 4.18 4.20-5.40 [facility]neKncmvbtQBAEXETBPA5081-09-57 10:43:00 Test Item Value Reference Range Interpretation Comments WBC (test code = WBC) 6.7 3.7-10.4 [facility]neXwxnhdbLOZSNAKFVM1326-32-78 10:43:00 Test Item Value Reference Range Interpretation Comments MPV (test code = MPV) 9.3 7.4-10.4 [facility]neCujausnQALHCRFNWO5259-78-60 10:43:00 Test Item Value Reference Range Interpretation Comments Platelet (test code = Platelet) 159 133-450 [facility]neUiunnllHJQRBXLIBA3681-80-43 10:43:00 Test Item Value Reference Range Interpretation Comments RDW (test code = RDW) 12.8 11.5-14.5 [facility]neOzbqkzhSFIRJKCJYX9527-38-33 10:43:00 Test Item Value Reference Range Interpretation Comments MCH (test code = MCH) 30.7 pg 27.0-31.0 [facility]neKgkvwxfTAUCUOPYJF9778-48-19 10:43:00 Test Item Value Reference Range Interpretation Comments MCV (test code = MCV) 93.8 80.0-98.0 [facility]neWmrzsxiCOUSHHNJOE4724-91-29 10:43:00 Test Item Value Reference Range Interpretation Comments Hct (test code = Hct) 39.2 36.0-48.0 [facility]neYwgmqkfKJRXSLMTIB4844-95-73 10:43:00 Test Item Value Reference Range Interpretation Comments Hgb (test code = Hgb) 12.8 12.0-16.0 [facility]neTuolyovRZZGPBXJXW4297-32-29 10:43:00 Test Item Value Reference Range Interpretation Comments MCHC (test code = MCHC) 32.8 32.0-36.0 [facility]neGajoweoBIGIRQXVOA9993-91-37 10:43:00 Test Item Value Reference Range Interpretation Comments Lymphocytes (test code = Lymphocytes) 21.4 20.0-40.0 [facility]neOxsphuiIDVIRYQUON4528-10-26 10:43:00 Test Item Value Reference Range Interpretation Comments Segs (test code = Segs) 64.1 45.0-75.0 [facility]neIhlfsnbUEBRWZCDMP4812-49-12 10:43:00 Test Item Value Reference Range Interpretation Comments Eosinophils (test code = 3.1 See_Comment [A utomated message] The Eosinophils) system which ge nerated this result tra nsmitted reference range : <=4.0. The reference r leatha was not used to int erpret this result as normal/abnormal . [facility]neCbvzqtaBYLVBYTQYZ4412-52-60 10:43:00 Test Item Value Reference Range Interpretation Comments Monocytes (test code = Monocytes) 10.9 2.0-12.0 [facility]neMcrggrjSFDUZTWXDO8958-20-72 10:43:00 Test Item Value Reference Range Interpretation Comments Basophils (test code = 0.5 See_Comment [Aut omated message] The Basophils) system which ge nerated this result tra nsmitted reference range : <=1.0. The reference r leatha was not used to int erpret this result as normal/abnormal . [facility]neKduxakeHUZEVXNANZ2867-87-60 10:43:00 Test Item Value Reference Range Interpretation Comments Basophils # (test code 0.0 See_Comment [Aut omated message] The = Basophils #) system which generated this result tra nsmitted reference range : <=0.2. The reference r leatha was not used to int erpret this result as normal/abnormal . [facility]neYdhndoiVCIZTWSBIS1494-14-01 10:43:00 Test Item Value Reference Range Interpretation Comments Eosinophils # (test code 0.2 See_Comment [A utomated message] The = Eosinophils #) system [facility] generated this result tra nsmitted reference range : <=0.5. The reference r leatha was not used to int erpret this result as normal/abnormal . [facility]neXbewyytTOQCOTEPGE5160-64-84 10:43:00 Test Item Value Reference Range Interpretation Comments Monocytes # (test code 0.7 See_Comment [Aut omated message] The = Monocytes #) system which generated this result tra nsmitted reference range : <=0.8. The reference r leatha was not used to int erpret this result as normal/abnormal . [facility]neKhcycqhNVETUKEXEN4765-81-25 10:43:00 Test Item Value Reference Range Interpretation Comments Lymphocytes # (test code = Lymphocytes 1.4 1.0-5.5 #) [facility]neThuczyeCEPBKCPSLX6243-70-16 10:43:00 Test Item Value Reference Range Interpretation Comments Segs-Bands # (test code = Segs-Bands #) 4.3 1.5-8.1 [facility]2016-07-28 10:43:00 Test Item Value Reference Range Interpretation Comments Total Protein (test code = Total 4.9 6.4-8.4 Protein) [facility]2016-07-28 10:43:00 Test Item Value Reference Range Interpretation Comments Alk Phos (test code = Alk Phos) 60 39-136 [facility]2016-07-28 10:43:00 Test Item Value Reference Range Interpretation Comments Bili Total (test code = Bili Total) 0.4 0.2-1.3 [facility]2016-07-28 10:43:00 Test Item Value Reference Range Interpretation Comments ALT (test code = ALT) 22 See_Comment [Auto mated message] The system which ge nerated this result transmit juan reference range : <=65. The reference range was not used to interpr et this result as lashonda l/abnormal. [facility]2016-07-28 10:43:00 Test Item Value Reference Range Interpretation Comments AST (test code = AST) 12 See_Comment [Auto mated message] The system which ge nerated this result transmit juan reference range : <=37. The reference range was not used to interpr et this result as lashonda l/abnormal. [facility]2016-07-28 10:43:00 Test Item Value Reference Range Interpretation Comments Albumin Lvl (test code = Albumin Lvl) 2.7 3.5-5.0 [facility]2016-07-28 10:43:00 Test Item Value Reference Range Interpretation Comments Globulin (test code = Globulin) 2.2 2.0-4.0 [facility]2016-07-28 10:43:00 Test Item Value Reference Range Interpretation Comments A/G Ratio (test code = A/G Ratio) 1.2 0.7-1.6 [facility]2016-07-28 10:43:00 Test Item Value Reference Range Interpretation Comments B/C Ratio (test code = B/C Ratio) 23 6-25 [facility]neWjmwycxMLIKAZRBUR4001-54-07 10:43:00 Test Item Value Reference Range Interpretation Comments RBC (test code = RBC) 4.18 4.20-5.40 [facility]neRoogmmzIURUUWDXWM8751-60-06 10:43:00 Test Item Value Reference Range Interpretation Comments WBC (test code = WBC) 6.7 3.7-10.4 [facility]neMdfgpuyFZALXTFFJE6613-85-85 10:43:00 Test Item Value Reference Range Interpretation Comments MPV (test code = MPV) 9.3 7.4-10.4 [facility]neQhooluyPCJNBOACJU5018-17-34 10:43:00 Test Item Value Reference Range Interpretation Comments Platelet (test code = Platelet) 159 133-450 [facility]neGknuphwEBIVYCSPPW5167-09-24 10:43:00 Test Item Value Reference Range Interpretation Comments RDW (test code = RDW) 12.8 11.5-14.5 [facility]neVmamuqlESKYDQKXTI3906-41-03 10:43:00 Test Item Value Reference Range Interpretation Comments MCH (test code = MCH) 30.7 pg 27.0-31.0 [facility]nePtyzjfsDPSUYGQIQL9369-15-92 10:43:00 Test Item Value Reference Range Interpretation Comments MCV (test code = MCV) 93.8 80.0-98.0 [facility]neSfdcbvnPBUXORXSNG6106-08-43 10:43:00 Test Item Value Reference Range Interpretation Comments Hct (test code = Hct) 39.2 36.0-48.0 [facility]neHivznmrTEWVUQUHIB7120-82-99 10:43:00 Test Item Value Reference Range Interpretation Comments Hgb (test code = Hgb) 12.8 12.0-16.0 [facility]neHywulvsKKIZJTGWKK4048-48-00 10:43:00 Test Item Value Reference Range Interpretation Comments MCHC (test code = MCHC) 32.8 32.0-36.0 [facility]neTldvkowCSYKDDLDPJ4465-89-49 10:43:00 Test Item Value Reference Range Interpretation Comments Lymphocytes (test code = Lymphocytes) 21.4 20.0-40.0 [facility]neEnuialkTGXYCITEZN2670-40-15 10:43:00 Test Item Value Reference Range Interpretation Comments Segs (test code = Segs) 64.1 45.0-75.0 [facility]neRrbmcgrTQRQVQELWJ4897-49-32 10:43:00 Test Item Value Reference Range Interpretation Comments Eosinophils (test code = 3.1 See_Comment [A utomated message] The Eosinophils) system which ge nerated this result tra nsmitted reference range : <=4.0. The reference r leatha was not used to int erpret this result as normal/abnormal . [facility]neQriqakbNUOXSVTFRV2642-19-02 10:43:00 Test Item Value Reference Range Interpretation Comments Monocytes (test code = Monocytes) 10.9 2.0-12.0 [facility]neWcrarluXUXUXWQXXI7686-25-78 10:43:00 Test Item Value Reference Range Interpretation Comments Basophils (test code = 0.5 See_Comment [Aut omated message] The Basophils) system which ge nerated this result tra nsmitted reference range : <=1.0. The reference r leatha was not used to int erpret this result as normal/abnormal . [facility]neSrbwcjdXIDWUJTANT2897-25-75 10:43:00 Test Item Value Reference Range Interpretation Comments Basophils # (test code 0.0 See_Comment [Aut omated message] The = Basophils #) system which generated this result tra nsmitted reference range : <=0.2. The reference r leatha was not used to int erpret this result as normal/abnormal . [facility]neMobioocJXTXMWHXKZ3810-93-39 10:43:00 Test Item Value Reference Range Interpretation Comments Eosinophils # (test code 0.2 See_Comment [A utomated message] The = Eosinophils #) system whic h generated this result tra nsmitted reference range : <=0.5. The reference r leatha was not used to int erpret this result as normal/abnormal . [facility]neWsksuxeBWEGHIYBOM8331-65-82 10:43:00 Test Item Value Reference Range Interpretation Comments Monocytes # (test code 0.7 See_Comment [Aut omated message] The = Monocytes #) system which generated this result tra nsmitted reference range : <=0.8. The reference r leatha was not used to int erpret this result as normal/abnormal . [facility]neSllfbruYLQGROYJJX6129-03-00 10:43:00 Test Item Value Reference Range Interpretation Comments Lymphocytes # (test code = Lymphocytes 1.4 1.0-5.5 #) [facility]neIsrslgwXXIMESEGKR6322-60-08 10:43:00 Test Item Value Reference Range Interpretation Comments Segs-Bands # (test code = Segs-Bands #) 4.3 1.5-8.1 [facility]2016-07-26 23:48:00 Test Item Value Reference Range Interpretation Comments Magnesium Lvl (test code = Magnesium 1.8 1.8-2.4 Lvl) [facility]2016-07-26 23:48:00 Test Item Value Reference Range Interpretation Comments Phosphorus (test code = Phosphorus) 2.0 2.5-4.5 [facility]neEtnbjrnFVHJVZOHYP1137-59-06 23:48:00 Test Item Value Reference Range Interpretation Comments Basophils # (test code 0.0 See_Comment [Aut omated message] The = Basophils #) system which generated this result tra nsmitted reference range : <=0.2. The reference r leatha was not used to int erpret this result as normal/abnormal . [place] [id number] 23:48:00 Test Item Value Reference Range Interpretation Comments Macrocyte (test code = 1+ *ABN*(01/11/16 Macrocyte) 6:48 PM) [facility]neCzmykosIEJHZZYSLB9855-24-18 23:48:00 Test Item Value Reference Range Interpretation Comments INR (test code = INR) 0.99 0.85-1.17 [facility]burneZzabobkLIBUSDPBTY4348-85-57 23:48:00 Test Item Value Reference Range Interpretation Comments PTT (test code = PTT) 23.5 s 22.9-35.8 [facility]neViznftpHSNOVPQOXC2528-55-46 23:48:00 Test Item Value Reference Range Interpretation Comments PT (test code = PT) 13.4 s 12.0-14.7 [facility]2016-07-26 23:48:00 Test Item Value Reference Range Interpretation Comments Magnesium Lvl (test code = Magnesium 1.8 1.8-2.4 Lvl) [facility]2016-07-26 23:48:00 Test Item Value Reference Range Interpretation Comments Phosphorus (test code = Phosphorus) 2.0 2.5-4.5 [place] [id number] 23:48:00 Test Item Value Reference Range Interpretation Comments Basophils # (test code 0.0 See_Comment [Aut omated message] The = Basophils #) system which generated this result tra nsmitted reference range : <=0.2. The reference r leatha was not used to int erpret this result as normal/abnormal . [facility]neZgmukqyBVUBFBFBPT4130-74-38 23:48:00 Test Item Value Reference Range Interpretation Comments Macrocyte (test code = 1+ *ABN*(01/11/16 Macrocyte) 6:48 PM) [facility]neCnhponzBDDBQIKLZL2115-43-42 23:48:00 Test Item Value Reference Range Interpretation Comments INR (test code = INR) 0.99 0.85-1.17 [facility]neApughejVBBYJGDEEE0102-11-56 23:48:00 Test Item Value Reference Range Interpretation Comments PTT (test code = PTT) 23.5 s 22.9-35.8 [facility]neHoolwhrWISXQZXULL7411-95-36 23:48:00 Test Item Value Reference Range Interpretation Comments PT (test code = PT) 13.4 s 12.0-14.7 [facility]2016-07-26 23:48:00 Test Item Value Reference Range Interpretation Comments Magnesium Lvl (test code = Magnesium 1.8 1.8-2.4 Lvl) [facility]2016-07-26 23:48:00 Test Item Value Reference Range Interpretation Comments Phosphorus (test code = Phosphorus) 2.0 2.5-4.5 [facility]neLhxgdisRNPVEWWYTP2455-02-21 23:48:00 Test Item Value Reference Range Interpretation Comments Basophils # (test code 0.0 See_Comment [Aut omated message] The = Basophils #) system which generated this result tra nsmitted reference range : <=0.2. The reference r leatha was not used to int erpret this result as normal/abnormal . [facility]neYyquoftYIZNBYKWPA2685-85-34 23:48:00 Test Item Value Reference Range Interpretation Comments Macrocyte (test code = 1+ *ABN*(01/11/16 Macrocyte) 6:48 PM) [facility]neBljqosbBCTFIPCHBF2442-19-29 23:48:00 Test Item Value Reference Range Interpretation Comments INR (test code = INR) 0.99 0.85-1.17 [facility]VcnwlfsPXPBRASQZH6825-61-44 23:48:00 Test Item Value Reference Range Interpretation Comments PTT (test code = PTT) 23.5 s 22.9-35.8 [facility]neMphynhjLSRSVWXFTU2264-27-55 23:48:00 Test Item Value Reference Range Interpretation Comments PT (test code = PT) 13.4 s 12.0-14.7 [facility]2016-07-26 23:48:00 Test Item Value Reference Range Interpretation Comments Magnesium Lvl (test code = Magnesium 1.8 1.8-2.4 Lvl) [facility]2016-07-26 23:48:00 Test Item Value Reference Range Interpretation Comments Phosphorus (test code = Phosphorus) 2.0 2.5-4.5 [facility]neUmwaubfPFPMMSPYMR7910-27-47 23:48:00 Test Item Value Reference Range Interpretation Comments Basophils # (test code 0.0 See_Comment [Aut omated message] The = Basophils #) system which generated this result tra nsmitted reference range : <=0.2. The reference r leatha was not used to int erpret this result as normal/abnormal . [facility]neAoazsezPXMYHUWCPD1606-43-39 23:48:00 Test Item Value Reference Range Interpretation Comments Macrocyte (test code = 1+ *ABN*(01/11/16 Macrocyte) 6:48 PM) [facility]neAzzlqosTKTQIGKPLQ6563-02-69 23:48:00 Test Item Value Reference Range Interpretation Comments INR (test code = INR) 0.99 0.85-1.17 [facility]neFyolkmuUOJXWHAFGL6870-59-51 23:48:00 Test Item Value Reference Range Interpretation Comments PTT (test code = PTT) 23.5 s 22.9-35.8 [place] 387106-07-26 23:48:00 Test Item Value Reference Range Interpretation Comments PT (test code = PT) 13.4 s 12.0-14.7 [facility]2016-07-26 23:48:00 Test Item Value Reference Range Interpretation Comments Magnesium Lvl (test code = Magnesium 1.8 1.8-2.4 Lvl) [facility]2016-07-26 23:48:00 Test Item Value Reference Range Interpretation Comments Phosphorus (test code = Phosphorus) 2.0 2.5-4.5 [facility]neUbnwpwpHDGBQDHJLB0770-73-34 23:48:00 Test Item Value Reference Range Interpretation Comments Basophils # (test code 0.0 See_Comment [Aut omated message] The = Basophils #) system which generated this result tra nsmitted reference range : <=0.2. The reference r leatha was not used to int erpret this result as normal/abnormal . [facility]neAhtqxpxONTNPQULPU9888-87-14 23:48:00 Test Item Value Reference Range Interpretation Comments Macrocyte (test code = 1+ *ABN*(01/11/16 Macrocyte) 6:48 PM) [facility]neFeejcjzZOGUWDFYXZ1769-74-21 23:48:00 Test Item Value Reference Range Interpretation Comments INR (test code = INR) 0.99 0.85-1.17 [facility]neMvptwcuISLPHQDSIH6924-51-31 23:48:00 Test Item Value Reference Range Interpretation Comments PTT (test code = PTT) 23.5 s 22.9-35.8 [facility]neCrrlfaaDVXMYCSDMO1716-08-47 23:48:00 Test Item Value Reference Range Interpretation Comments PT (test code = PT) 13.4 s 12.0-14.7 [facility]2016-07-26 23:48:00 Test Item Value Reference Range Interpretation Comments Magnesium Lvl (test code = Magnesium 1.8 1.8-2.4 Lvl) [facility]2016-07-26 23:48:00 Test Item Value Reference Range Interpretation Comments Phosphorus (test code = Phosphorus) 2.0 2.5-4.5 [facility]neSizenchARQQCQRYQH6536-46-69 23:48:00 Test Item Value Reference Range Interpretation Comments Basophils # (test code 0.0 See_Comment [Aut omated message] The = Basophils #) system which generated this result tra nsmitted reference range : <=0.2. The reference r leatha was not used to int erpret this result as normal/abnormal . [facility]neMezceseNEDMGESOEG3514-92-91 23:48:00 Test Item Value Reference Range Interpretation Comments Macrocyte (test code = 1+ *ABN*(01/11/16 Macrocyte) 6:48 PM) [facility]neEyqbaslSLYSDGJFJF9234-23-93 23:48:00 Test Item Value Reference Range Interpretation Comments INR (test code = INR) 0.99 0.85-1.17 [facility]neOvleobzDEFAVHQSWT4947-24-68 23:48:00 Test Item Value Reference Range Interpretation Comments PTT (test code = PTT) 23.5 s 22.9-35.8 [place] 387106-07-26 23:48:00 Test Item Value Reference Range Interpretation Comments PT (test code = PT) 13.4 s 12.0-14.7 [facility] GLUCOSE [id number] 12:49:00 Test Item Value Reference Range Interpretation Comments Comment1 (test code = Comment1) Notify RN/ [facility] GLUCOSE [id number] 12:49:00 Test Item Value Reference Range Interpretation Comments Gluc POC Lifscn (test code = Gluc POC 308 70-99 H Lifscn) [facility] GLUCOSE [id number] 12:49:00 Test Item Value Reference Range Interpretation Comments Comment1 (test code = Comment1) Notify RN/ [facility] GLUCOSE [id number] 12:49:00 Test Item Value Reference Range Interpretation Comments Gluc POC Lifscn (test code = Gluc POC 308 70-99 H Lifscn) [facility] GLUCOSE [id number] 12:49:00 Test Item Value Reference Range Interpretation Comments Comment1 (test code = Comment1) Notify RN/ [facility] GLUCOSE [id number] 12:49:00 Test Item Value Reference Range Interpretation Comments Gluc POC Lifscn (test code = Gluc POC 308 70-99 H Lifscn) [facility] GLUCOSE [id number] 12:49:00 Test Item Value Reference Range Interpretation Comments Comment1 (test code = Comment1) Notify RN/ [facility] GLUCOSE [id number] 12:49:00 Test Item Value Reference Range Interpretation Comments Gluc POC Lifscn (test code = Gluc POC 308 70-99 H Lifscn) [facility] GLUCOSE [id number] 12:49:00 Test Item Value Reference Range Interpretation Comments Comment1 (test code = Comment1) Notify RN/ [facility] GLUCOSE [id number] 12:49:00 Test Item Value Reference Range Interpretation Comments Gluc POC Lifscn (test code = Gluc POC 308 70-99 H Lifscn) [facility] GLUCOSE [id number] 12:49:00 Test Item Value Reference Range Interpretation Comments Comment1 (test code = Comment1) Notify RN/ [facility] GLUCOSE [id number] 12:49:00 Test Item Value Reference Range Interpretation Comments Gluc POC Lifscn (test code = Gluc POC 308 70-99 H Lifscn) [facility] GLUCOSE [id number] 08:39:00 Test Item Value Reference Range Interpretation Comments Comment1 (test code = Comment1) Notify RN/ [facility] GLUCOSE [id number] 08:39:00 Test Item Value Reference Range Interpretation Comments Gluc POC Lifscn (test code = Gluc POC 159 70-99 H Lifscn) [facility] GLUCOSE [id number] 08:39:00 Test Item Value Reference Range Interpretation Comments Comment1 (test code = Comment1) Notify RN/ [facility] GLUCOSE [id number] 08:39:00 Test Item Value Reference Range Interpretation Comments Gluc POC Lifscn (test code = Gluc POC 159 70-99 H Lifscn) [facility] GLUCOSE [id number] 08:39:00 Test Item Value Reference Range Interpretation Comments Comment1 (test code = Comment1) Notify RN/ [facility] GLUCOSE [id number] 08:39:00 Test Item Value Reference Range Interpretation Comments Gluc POC Lifscn (test code = Gluc POC 159 70-99 H Lifscn) [facility] GLUCOSE [id number] 08:39:00 Test Item Value Reference Range Interpretation Comments Comment1 (test code = Comment1) Notify RN/ [facility] GLUCOSE [id number] 08:39:00 Test Item Value Reference Range Interpretation Comments Gluc POC Lifscn (test code = Gluc POC 159 70-99 H Lifscn) [facility] GLUCOSE [id number] 08:39:00 Test Item Value Reference Range Interpretation Comments Comment1 (test code = Comment1) Notify RN/ [facility] GLUCOSE [id number] 08:39:00 Test Item Value Reference Range Interpretation Comments Gluc POC Lifscn (test code = Gluc POC 159 70-99 H Lifscn) [facility] GLUCOSE [id number] 08:39:00 Test Item Value Reference Range Interpretation Comments Comment1 (test code = Comment1) Notify RN/ [facility] GLUCOSE [id number] 08:39:00 Test Item Value Reference Range Interpretation Comments Gluc POC Lifscn (test code = Gluc POC 159 70-99 H Lifscn) [facility]YfxvjwoQTIYGINDB8798-84-77 07:19:00 Test Item Value Reference Range Interpretation Comments AGAP (test code = AGAP) 14.3 10.0-20.0 N [facility]bergJmtiqywIZDJTRFKJ2726-97-10 07:19:00 Test Item Value Reference Range Interpretation Comments eGFR (test code = eGFR) 75 [facility]bergYzgnygiQLUXBNLQJ2412-97-51 07:19:00 Test Item Value Reference Range Interpretation Comments Sodium Lvl (test code = Sodium Lvl) 139 135-145 N [facility]bergKrabronCCIEYFSKP9650-02-44 07:19:00 Test Item Value Reference Range Interpretation Comments Chloride Lvl (test code = Chloride Lvl) 104 95-109 N [facility]bergJfjqsdeLUPBGUGIR8865-98-47 07:19:00 Test Item Value Reference Range Interpretation Comments CO2 (test code = CO2) 25 24-32 N [facility]bergNbjbfvsDNAZOANLE8873-36-68 07:19:00 Test Item Value Reference Range Interpretation Comments Calcium Lvl (test code = Calcium Lvl) 10.7 8.5-10.5 H [facility]bergTgfbtxcCEFFYHUQX0769-51-57 07:19:00 Test Item Value Reference Range Interpretation Comments Potassium Lvl (test code = Potassium 4.3 3.5-5.1 N Lvl) [facility]bergFjqhdkhFMBLLUQBM1842-95-30 07:19:00 Test Item Value Reference Range Interpretation Comments Glucose Lvl (test code = Glucose Lvl) 262 70-99 H [facility] KlebergZvjgjrvCQCYUDNWQ7757-39-77 07:19:00 Test Item Value Reference Range Interpretation Comments Creatinine Lvl (test code = Creatinine 0.8 0.5-1.4 N Lvl) [facility]bergTcbdlgiJJMYJUVGP9634-63-63 07:19:00 Test Item Value Reference Range Interpretation Comments BUN (test code = BUN) 20 7-22 N [facility]neZgibloaBNBMMHGWQL7426-71-94 07:19:00 Test Item Value Reference Range Interpretation Comments Hgb (test code = Hgb) 14.0 12.0-16.0 N [facility]neXgimsvcBOKTIXYIBS7771-76-69 07:19:00 Test Item Value Reference Range Interpretation Comments Hct (test code = Hct) 42.5 36.0-48.0 N [facility]neSoexwagWQXMGHUYAA5918-67-60 07:19:00 Test Item Value Reference Range Interpretation Comments MCV (test code = MCV) 92.3 81.0-99.0 N [facility]neJnrbaqmZNLTAQFITX8861-67-72 07:19:00 Test Item Value Reference Range Interpretation Comments MCH (test code = MCH) 30.5 pg 27.0-31.0 N [facility]neSngltkaJGFCPSAAXN0188-15-33 07:19:00 Test Item Value Reference Range Interpretation Comments MCHC (test code = MCHC) 33.0 32.0-36.0 N [facility]neOtwbznyCWQFLMQINT4264-19-05 07:19:00 Test Item Value Reference Range Interpretation Comments RDW (test code = RDW) 14.6 11.5-14.5 H [facility]neBdxpoqaFXZSLSLLWB0787-17-70 07:19:00 Test Item Value Reference Range Interpretation Comments Platelet (test code = Platelet) 215 133-450 N [facility]neJdrbalyPQFNWVDUYR5826-33-48 07:19:00 Test Item Value Reference Range Interpretation Comments MPV (test code = MPV) 10.0 7.4-10.4 N [facility]neUzslemoNCSCUUINEQ3447-42-89 07:19:00 Test Item Value Reference Range Interpretation Comments RBC (test code = RBC) 4.60 4.20-5.40 N [facility]neDkegsvmABLVIGWCYX1969-16-17 07:19:00 Test Item Value Reference Range Interpretation Comments WBC (test code = WBC) 13.0 3.7-10.4 H [facility]bergAwkmvlhVHQJRFWPM1672-49-58 07:19:00 Test Item Value Reference Range Interpretation Comments AGAP (test code = AGAP) 14.3 10.0-20.0 N [facility]bergXdqqpjwJYIPCWRXX1596-36-04 07:19:00 Test Item Value Reference Range Interpretation Comments eGFR (test code = eGFR) 75 [facility] KlebergZsmxwhxZIJDXLBRI1563-28-46 07:19:00 Test Item Value Reference Range Interpretation Comments Sodium Lvl (test code = Sodium Lvl) 139 135-145 N [facility] KlebergDehvxxlPRRVFMGNG9176-50-91 07:19:00 Test Item Value Reference Range Interpretation Comments Chloride Lvl (test code = Chloride Lvl) 104 95-109 N [facility]bergDmokwovTGGOFLDVQ9071-35-71 07:19:00 Test Item Value Reference Range Interpretation Comments CO2 (test code = CO2) 25 24-32 N [facility]bergFdctsjlVFUZQGHOD0881-34-42 07:19:00 Test Item Value Reference Range Interpretation Comments Calcium Lvl (test code = Calcium Lvl) 10.7 8.5-10.5 H [facility] KlebergLjqwwjsJBXASNVCQ1191-93-14 07:19:00 Test Item Value Reference Range Interpretation Comments Potassium Lvl (test code = Potassium 4.3 3.5-5.1 N Lvl) [facility] KlebergAcuovccSXWVHDNSB5170-12-46 07:19:00 Test Item Value Reference Range Interpretation Comments Glucose Lvl (test code = Glucose Lvl) 262 70-99 H [facility] KlebergDaezskhGFBUGFDGG3793-39-01 07:19:00 Test Item Value Reference Range Interpretation Comments Creatinine Lvl (test code = Creatinine 0.8 0.5-1.4 N Lvl) [facility]bergYcwqyerXEMSFCJKW9028-06-92 07:19:00 Test Item Value Reference Range Interpretation Comments BUN (test code = BUN) 20 7-22 N [facility]nePpxjlagZMOJEYEPOS1558-65-39 07:19:00 Test Item Value Reference Range Interpretation Comments Hgb (test code = Hgb) 14.0 12.0-16.0 N [facility]neUzcgvqzGGURRQXORS2829-40-35 07:19:00 Test Item Value Reference Range Interpretation Comments Hct (test code = Hct) 42.5 36.0-48.0 N [facility]neRbvvxdpDLMBPQVTIN7273-73-45 07:19:00 Test Item Value Reference Range Interpretation Comments MCV (test code = MCV) 92.3 81.0-99.0 N [facility]neTgxtubwEGAPYIZQTS2703-92-03 07:19:00 Test Item Value Reference Range Interpretation Comments MCH (test code = MCH) 30.5 pg 27.0-31.0 N [facility]neNtvlebeLRLSZZQBWQ4455-39-01 07:19:00 Test Item Value Reference Range Interpretation Comments MCHC (test code = MCHC) 33.0 32.0-36.0 N [facility]neYcyuhihUPNLRHPTDV1043-33-67 07:19:00 Test Item Value Reference Range Interpretation Comments RDW (test code = RDW) 14.6 11.5-14.5 H [facility]neOqgiccxCSRFIKAECD6216-19-54 07:19:00 Test Item Value Reference Range Interpretation Comments Platelet (test code = Platelet) 215 133-450 N [facility]neTvpydimCYEGLHYFDE8493-80-40 07:19:00 Test Item Value Reference Range Interpretation Comments MPV (test code = MPV) 10.0 7.4-10.4 N [facility]neHrptwzeXGDPCSKPUY9270-23-39 07:19:00 Test Item Value Reference Range Interpretation Comments RBC (test code = RBC) 4.60 4.20-5.40 N [facility]neHeeplszKPOYJMUOCC8341-66-00 07:19:00 Test Item Value Reference Range Interpretation Comments WBC (test code = WBC) 13.0 3.7-10.4 H [facility] KlebergOjupykxMHZYAPIYA3897-64-34 07:19:00 Test Item Value Reference Range Interpretation Comments AGAP (test code = AGAP) 14.3 10.0-20.0 N [facility] KlebergHyebzgkVVVXHVCPL0693-71-51 07:19:00 Test Item Value Reference Range Interpretation Comments eGFR (test code = eGFR) 75 [facility] KlebergKpwvpbtQTDHSPAWO6170-37-35 07:19:00 Test Item Value Reference Range Interpretation Comments Sodium Lvl (test code = Sodium Lvl) 139 135-145 N [facility] KlebergElhwhxfTHLBVESRB2317-19-14 07:19:00 Test Item Value Reference Range Interpretation Comments Chloride Lvl (test code = Chloride Lvl) 104 95-109 N [facility]bergSvcgufmROSVFHTSF5100-56-99 07:19:00 Test Item Value Reference Range Interpretation Comments CO2 (test code = CO2) 25 24-32 N [facility] KlebergGotvgfbSVINYNGQP1578-63-89 07:19:00 Test Item Value Reference Range Interpretation Comments Calcium Lvl (test code = Calcium Lvl) 10.7 8.5-10.5 H [facility] KlebergZarmysaVCKXCOEYI2335-04-71 07:19:00 Test Item Value Reference Range Interpretation Comments Potassium Lvl (test code = Potassium 4.3 3.5-5.1 N Lvl) [facility]bergFkikqpgIKKMIPHZA4883-44-21 07:19:00 Test Item Value Reference Range Interpretation Comments Glucose Lvl (test code = Glucose Lvl) 262 70-99 H [facility]bergKkqeqxvEIRLFJWZU7502-59-80 07:19:00 Test Item Value Reference Range Interpretation Comments Creatinine Lvl (test code = Creatinine 0.8 0.5-1.4 N Lvl) [facility] KlebergFzfebzyZWTYZPEDO5671-37-29 07:19:00 Test Item Value Reference Range Interpretation Comments BUN (test code = BUN) 20 7-22 N [facility]neZdurmjeYGDQOMKCYM0984-51-92 07:19:00 Test Item Value Reference Range Interpretation Comments Hgb (test code = Hgb) 14.0 12.0-16.0 N [facility]neMvqeokhJUXUVNJQBJ9179-34-31 07:19:00 Test Item Value Reference Range Interpretation Comments Hct (test code = Hct) 42.5 36.0-48.0 N [facility]neKsvxtxkIUAPFKWOLV6387-60-16 07:19:00 Test Item Value Reference Range Interpretation Comments MCV (test code = MCV) 92.3 81.0-99.0 N [facility]neTdccvskQJVZNIZEUH3886-04-76 07:19:00 Test Item Value Reference Range Interpretation Comments MCH (test code = MCH) 30.5 pg 27.0-31.0 N [facility]nePjliwjsKNPCMXEUJO8859-02-20 07:19:00 Test Item Value Reference Range Interpretation Comments MCHC (test code = MCHC) 33.0 32.0-36.0 N [facility]neAuplxsfENHLFGDVXH8879-20-31 07:19:00 Test Item Value Reference Range Interpretation Comments RDW (test code = RDW) 14.6 11.5-14.5 H [facility]neHmuzdhnTCGLMVXWMX8034-27-26 07:19:00 Test Item Value Reference Range Interpretation Comments Platelet (test code = Platelet) 215 133-450 N [facility]neJdxrqanGIXQGYDIVV0575-97-88 07:19:00 Test Item Value Reference Range Interpretation Comments MPV (test code = MPV) 10.0 7.4-10.4 N [facility]neYhfzlowXJENNBAHTZ0970-38-11 07:19:00 Test Item Value Reference Range Interpretation Comments RBC (test code = RBC) 4.60 4.20-5.40 N [facility]neEslgstzEADHWOMTSW6878-89-70 07:19:00 Test Item Value Reference Range Interpretation Comments WBC (test code = WBC) 13.0 3.7-10.4 H [facility] KlebergTgtljheNNKRCWZET5630-50-21 07:19:00 Test Item Value Reference Range Interpretation Comments AGAP (test code = AGAP) 14.3 10.0-20.0 N [facility] KlebergCzgehpiUXNJENNQQ6873-18-50 07:19:00 Test Item Value Reference Range Interpretation Comments eGFR (test code = eGFR) 75 [facility] KlebergGdeazrtQKMGHEYAL3645-72-85 07:19:00 Test Item Value Reference Range Interpretation Comments Sodium Lvl (test code = Sodium Lvl) 139 135-145 N [facility] KlebergYviarjoTRGZHBUKT8330-72-14 07:19:00 Test Item Value Reference Range Interpretation Comments Chloride Lvl (test code = Chloride Lvl) 104 95-109 N [facility] KlebergUqdfsmkVYTCZDARN7169-49-81 07:19:00 Test Item Value Reference Range Interpretation Comments CO2 (test code = CO2) 25 24-32 N [facility] KlebergVizpcrcHNMXUZRKB2276-98-49 07:19:00 Test Item Value Reference Range Interpretation Comments Calcium Lvl (test code = Calcium Lvl) 10.7 8.5-10.5 H [facility] KlebergHqbtenhBOMQWWYVH8426-77-11 07:19:00 Test Item Value Reference Range Interpretation Comments Potassium Lvl (test code = Potassium 4.3 3.5-5.1 N Lvl) [facility]bergHumjpcrYRYHLLUFI1303-44-03 07:19:00 Test Item Value Reference Range Interpretation Comments Glucose Lvl (test code = Glucose Lvl) 262 70-99 H [facility] KlebergAbagbsxIFHUACSGZ1564-89-81 07:19:00 Test Item Value Reference Range Interpretation Comments Creatinine Lvl (test code = Creatinine 0.8 0.5-1.4 N Lvl) [facility] KlebergQhywammSLSKLUNWV4312-48-48 07:19:00 Test Item Value Reference Range Interpretation Comments BUN (test code = BUN) 20 7-22 N [facility]neRjzanzvMSNJBOZIZE8144-06-52 07:19:00 Test Item Value Reference Range Interpretation Comments Hgb (test code = Hgb) 14.0 12.0-16.0 N [facility]neRxmvyqhKMTQYRXECH2314-90-60 07:19:00 Test Item Value Reference Range Interpretation Comments Hct (test code = Hct) 42.5 36.0-48.0 N [facility]neFlbwfowSMWRHVKOTW4602-21-85 07:19:00 Test Item Value Reference Range Interpretation Comments MCV (test code = MCV) 92.3 81.0-99.0 N [facility]neEcqxipdUFNADNUJXW3526-50-60 07:19:00 Test Item Value Reference Range Interpretation Comments MCH (test code = MCH) 30.5 pg 27.0-31.0 N [facility]neLvcdrdzVGZQTWYBNF1224-61-49 07:19:00 Test Item Value Reference Range Interpretation Comments MCHC (test code = MCHC) 33.0 32.0-36.0 N [facility]neBetvkxtDMSHAZNEIC4354-82-34 07:19:00 Test Item Value Reference Range Interpretation Comments RDW (test code = RDW) 14.6 11.5-14.5 H [facility]neTsqocdeHMVOBEEKZG9764-26-48 07:19:00 Test Item Value Reference Range Interpretation Comments Platelet (test code = Platelet) 215 133-450 N [facility]nePkksaceNOBAYJLVQF1768-62-45 07:19:00 Test Item Value Reference Range Interpretation Comments MPV (test code = MPV) 10.0 7.4-10.4 N [facility]neVygiiyrXGNSSAERGL4747-95-97 07:19:00 Test Item Value Reference Range Interpretation Comments RBC (test code = RBC) 4.60 4.20-5.40 N [facility]neSsqgoxsVUDROKHEHL9806-05-22 07:19:00 Test Item Value Reference Range Interpretation Comments WBC (test code = WBC) 13.0 3.7-10.4 H [facility] KlebergTilbcflGQBOGJXZY2060-42-70 07:19:00 Test Item Value Reference Range Interpretation Comments AGAP (test code = AGAP) 14.3 10.0-20.0 N [facility]bergEprccwoGKKTGJXVA7052-10-04 07:19:00 Test Item Value Reference Range Interpretation Comments eGFR (test code = eGFR) 75 [facility] KlebergEuqbcoxRPCWNDIIH5475-85-59 07:19:00 Test Item Value Reference Range Interpretation Comments Sodium Lvl (test code = Sodium Lvl) 139 135-145 N [facility] KlebergAhxolirFFELCCWUH6571-76-44 07:19:00 Test Item Value Reference Range Interpretation Comments Chloride Lvl (test code = Chloride Lvl) 104 95-109 N [facility] KlebergVbjyggoYRVLGANFY0537-47-85 07:19:00 Test Item Value Reference Range Interpretation Comments CO2 (test code = CO2) 25 24-32 N [facility] KlebergJgxkofqFIBCJMCHF3795-53-21 07:19:00 Test Item Value Reference Range Interpretation Comments Calcium Lvl (test code = Calcium Lvl) 10.7 8.5-10.5 H [facility] KlebergYermjygTAZJYCXWX4527-11-56 07:19:00 Test Item Value Reference Range Interpretation Comments Potassium Lvl (test code = Potassium 4.3 3.5-5.1 N Lvl) [facility]bergJmswpbdUHXOXUBEQ5332-03-85 07:19:00 Test Item Value Reference Range Interpretation Comments Glucose Lvl (test code = Glucose Lvl) 262 70-99 H [facility]bergPuaftjbCZHZXNCNX3720-56-76 07:19:00 Test Item Value Reference Range Interpretation Comments Creatinine Lvl (test code = Creatinine 0.8 0.5-1.4 N Lvl) [facility]bergLqeenwqCQWDOCWVS6480-50-85 07:19:00 Test Item Value Reference Range Interpretation Comments BUN (test code = BUN) 20 7-22 N [facility]EduztwkNQEWBTCNAN3735-00-45 07:19:00 Test Item Value Reference Range Interpretation Comments Hgb (test code = Hgb) 14.0 12.0-16.0 N [facility]neObmupmxSGNIXFYFEG7365-21-86 07:19:00 Test Item Value Reference Range Interpretation Comments Hct (test code = Hct) 42.5 36.0-48.0 N [facility]neNathpepBCSPRDBTGZ5804-88-16 07:19:00 Test Item Value Reference Range Interpretation Comments MCV (test code = MCV) 92.3 81.0-99.0 N [facility]neRkqztvrZDIPCJAXQG5946-92-85 07:19:00 Test Item Value Reference Range Interpretation Comments MCH (test code = MCH) 30.5 pg 27.0-31.0 N [facility]neVlzzlwlDXTQIRJZZI7240-81-15 07:19:00 Test Item Value Reference Range Interpretation Comments MCHC (test code = MCHC) 33.0 32.0-36.0 N [facility]neKmmcjttISYTVBOZWB5271-50-31 07:19:00 Test Item Value Reference Range Interpretation Comments RDW (test code = RDW) 14.6 11.5-14.5 H [facility]neLusqzjeKIRTOKSXXF0380-07-57 07:19:00 Test Item Value Reference Range Interpretation Comments Platelet (test code = Platelet) 215 133-450 N [facility]neQzzgusoFWKYETYYUL3394-96-30 07:19:00 Test Item Value Reference Range Interpretation Comments MPV (test code = MPV) 10.0 7.4-10.4 N [facility]neOhegmrgQERQAQEMMD8657-26-51 07:19:00 Test Item Value Reference Range Interpretation Comments RBC (test code = RBC) 4.60 4.20-5.40 N [facility]neTiiqubzZOWINLMLGL0695-80-61 07:19:00 Test Item Value Reference Range Interpretation Comments WBC (test code = WBC) 13.0 3.7-10.4 H [facility]bergNfxchnuMATJPEHFD4628-93-51 07:19:00 Test Item Value Reference Range Interpretation Comments AGAP (test code = AGAP) 14.3 10.0-20.0 N [facility]bergVlfqbdtQPOZVMVZL0630-57-69 07:19:00 Test Item Value Reference Range Interpretation Comments eGFR (test code = eGFR) 75 [facility]bergIddjakiPXDQRVODR9240-90-53 07:19:00 Test Item Value Reference Range Interpretation Comments Sodium Lvl (test code = Sodium Lvl) 139 135-145 N [facility]bergTzslavjFNLVGYSSX4699-28-36 07:19:00 Test Item Value Reference Range Interpretation Comments Chloride Lvl (test code = Chloride Lvl) 104 95-109 N [facility]bergTjbfztqEEGKXSUGI4749-60-93 07:19:00 Test Item Value Reference Range Interpretation Comments CO2 (test code = CO2) 25 24-32 N [facility]bergEetxnznMKTTOLWXY9659-97-74 07:19:00 Test Item Value Reference Range Interpretation Comments Calcium Lvl (test code = Calcium Lvl) 10.7 8.5-10.5 H [facility]bergCxxvxdgJOEYFPIRX0792-28-22 07:19:00 Test Item Value Reference Range Interpretation Comments Potassium Lvl (test code = Potassium 4.3 3.5-5.1 N Lvl) [facility]bergRfkdumqXAEADEXBB4153-99-21 07:19:00 Test Item Value Reference Range Interpretation Comments Glucose Lvl (test code = Glucose Lvl) 262 70-99 H [facility]bergBdhngnjQMPSYZWWO7968-05-72 07:19:00 Test Item Value Reference Range Interpretation Comments Creatinine Lvl (test code = Creatinine 0.8 0.5-1.4 N Lvl) [facility]bergTiojucaXJIXKPMIE7063-48-06 07:19:00 Test Item Value Reference Range Interpretation Comments BUN (test code = BUN) 20 7-22 N [facility]neVnxrtylJSYTGUHGGP7025-53-15 07:19:00 Test Item Value Reference Range Interpretation Comments Hgb (test code = Hgb) 14.0 12.0-16.0 N [facility]neQjrxgmnZFZYQDUDFV5920-32-98 07:19:00 Test Item Value Reference Range Interpretation Comments Hct (test code = Hct) 42.5 36.0-48.0 N [facility]neHrhshjnMHBZMRVIHR8921-14-84 07:19:00 Test Item Value Reference Range Interpretation Comments MCV (test code = MCV) 92.3 81.0-99.0 N [facility]neWbnyjalTLTTBIXAIS0953-50-14 07:19:00 Test Item Value Reference Range Interpretation Comments MCH (test code = MCH) 30.5 pg 27.0-31.0 N [facility]neNnwbvpoOHINOWBMJO9856-90-42 07:19:00 Test Item Value Reference Range Interpretation Comments MCHC (test code = MCHC) 33.0 32.0-36.0 N [facility]neVbmuunsFTJNPYXJLS3537-39-06 07:19:00 Test Item Value Reference Range Interpretation Comments RDW (test code = RDW) 14.6 11.5-14.5 H [facility]neEcdpedjGELADGWEZX3132-38-62 07:19:00 Test Item Value Reference Range Interpretation Comments Platelet (test code = Platelet) 215 133-450 N [facility]neOipniwwNQCRZAZASF9057-02-42 07:19:00 Test Item Value Reference Range Interpretation Comments MPV (test code = MPV) 10.0 7.4-10.4 N [facility]neStmynttNJPKRHFTTD3967-29-24 07:19:00 Test Item Value Reference Range Interpretation Comments RBC (test code = RBC) 4.60 4.20-5.40 N [facility]neUsuvwwqHASTEBLCCJ9283-98-24 07:19:00 Test Item Value Reference Range Interpretation Comments WBC (test code = WBC) 13.0 3.7-10.4 H [facility] GLUCOSE XWNXDGC8271-43-33 04:41:00 Test Item Value Reference Range Interpretation Comments Comment1 (test code = Comment1) Notify RN/ [facility] GLUCOSE EBMITGW6090-20-34 04:41:00 Test Item Value Reference Range Interpretation Comments Gluc POC Lifscn (test code = Gluc POC 244 70-99 H Lifscn) [facility] GLUCOSE OLSAVWZ8482-53-11 04:41:00 Test Item Value Reference Range Interpretation Comments Comment1 (test code = Comment1) Notify RN/ [facility] GLUCOSE JILTIOS2169-99-60 04:41:00 Test Item Value Reference Range Interpretation Comments Gluc POC Lifscn (test code = Gluc POC 244 70-99 H Lifscn) [facility] GLUCOSE TACPROP9975-95-86 04:41:00 Test Item Value Reference Range Interpretation Comments Comment1 (test code = Comment1) Notify RN/ [facility] GLUCOSE [id number] 04:41:00 Test Item Value Reference Range Interpretation Comments Gluc POC Lifscn (test code = Gluc POC 244 70-99 H Lifscn) [facility] GLUCOSE [id number] 04:41:00 Test Item Value Reference Range Interpretation Comments Comment1 (test code = Comment1) Notify RN/ [facility] GLUCOSE HMULSQT3248-82-56 04:41:00 Test Item Value Reference Range Interpretation Comments Gluc POC Lifscn (test code = Gluc POC 244 70-99 H Lifscn) [facility] GLUCOSE [id number] 04:41:00 Test Item Value Reference Range Interpretation Comments Comment1 (test code = Comment1) Notify RN/ [facility] GLUCOSE [id number] 04:41:00 Test Item Value Reference Range Interpretation Comments Gluc POC Lifscn (test code = Gluc POC 244 70-99 H Lifscn) [facility] GLUCOSE [id number] 04:41:00 Test Item Value Reference Range Interpretation Comments Comment1 (test code = Comment1) Notify RN/ [facility] GLUCOSE [id number] 04:41:00 Test Item Value Reference Range Interpretation Comments Gluc POC Lifscn (test code = Gluc POC 244 70-99 H Lifscn) [facility]bergYawudntDZPEKXFNH2486-34-48 07:50:32 Test Item Value Reference Range Interpretation Comments Magnesium Lvl (test code = Magnesium 2.0 1.8-2.4 N Lvl) [facility]bergSiajwjtVXZODFMYY4480-49-68 07:50:32 Test Item Value Reference Range Interpretation Comments Magnesium Lvl (test code = Magnesium 2.0 1.8-2.4 N Lvl) [facility]FWFOGTTL0070-[facility] 07:50:32 Test Item Value Reference Range Interpretation Comments Magnesium Lvl (test code = Magnesium 2.0 1.8-2.4 N Lvl) [facility]bergNmmvildSQHRQKNDF4943-75-78 07:50:32 Test Item Value Reference Range Interpretation Comments Magnesium Lvl (test code = Magnesium 2.0 1.8-2.4 N Lvl) [facility]bergYmqymihPDOIIMDNA7947-54-52 07:50:32 Test Item Value Reference Range Interpretation Comments Magnesium Lvl (test code = Magnesium 2.0 1.8-2.4 N Lvl) [facility]bergTzdgvjoANIJHJDEQ9809-10-76 07:50:32 Test Item Value Reference Range Interpretation Comments Magnesium Lvl (test code = Magnesium 2.0 1.8-2.4 N Lvl) [facility]CbkujqwUkyjfhtpiutc4609-86-71 11:00:00 Test Item Value Reference Range Interpretation Comments Culture: Urine (test code = Culture: Urine) [facility] HospitalCarjouaNulszrontyub7495-29-05 11:00:00 Test Item Value Reference Range Interpretation Comments Culture: Urine (test code = Culture: Urine) [facility] HospitalYrdpajxPbeqqhezqztd1358-91-99 11:00:00 Test Item Value Reference Range Interpretation Comments Culture: Urine (test code = Culture: Urine) [facility] HospitalQjnmfqtAglrvjseyqbs6779-63-78 11:00:00 Test Item Value Reference Range Interpretation Comments Culture: Urine (test code = Culture: Urine) [facility] HospitalZtrwnhbLsmqzbukrgqi7688-41-55 11:00:00 Test Item Value Reference Range Interpretation Comments Culture: Urine (test code = Culture: Urine) [facility] HospitalKifwlhkTidcxiissyor2760-36-98 11:00:00 Test Item Value Reference Range Interpretation Comments Culture: Urine (test code = Culture: Urine) [facility] HospitalKctgbliHHLPCCSZEA8403-97-03 06:52:38 Test Item Value Reference Range Interpretation Comments UA Urobilinogen (test code *NA*(10/04/2012 0.1-1.0 = UA Urobilinogen) 01:52:38) [facility] HospitalGjgocwvUWYICKYPJR3490-87-91 06:52:38 Test Item Value Reference Range Interpretation Comments UA Color (test code = Yellow *NA*(10/04/2012 UA Color) 01:52:38) [facility] HospitalIgedryyWVURKEVSYO9303-32-23 06:52:38 Test Item Value Reference Range Interpretation Comments UA Bacteria (test code Occasional /HPF = UA Bacteria) *NA*(10/04/2012 01:52:38) [facility]XfsltfaQLZHMIZBXJ0402-45-22 06:52:38 Test Item Value Reference Range Interpretation Comments UA Sq Epi (test code Occasional /LPF = UA Sq Epi) *NA*(10/04/2012 01:52:38) [facility] CenterGncxjwtPWPLOYTUHJ8183-27-88 06:52:38 Test Item Value Reference Range Interpretation Comments UA RBC (test code = 6 See_Comment H [Automa juan message] The UA RBC) system which ge nerated this result transmit juan reference range : <=2. The reference range was not used to interpr et this result as lashonda l/abnormal. [facility] CenterBteoypuPJQOGDQYCP5316-38-09 06:52:38 Test Item Value Reference Range Interpretation Comments UA Leuk Est (test code Small *ABN*(10/04/2012 A = UA Leuk Est) 01:52:38) [facility] CenterBcmrnjlBFXIUCFALD2546-11-76 06:52:38 Test Item Value Reference Range Interpretation Comments UA WBC (test code = 12 See_Comment H [Automa juan message] The UA WBC) system which ge nerated this result transmit juan reference range : <=5. The reference range was not used to interpr et this result as lashonda l/abnormal. [facility] CenterHnvmrmiBRUGLBKQUW5340-60-15 06:52:38 Test Item Value Reference Range Interpretation Comments UA Protein (test code = 10 mg/dL A UA Protein) *ABN*(10/04/2012 01:52:38) [facility] CenterXocnnhnEOAMETXUKV7081-57-67 06:52:38 Test Item Value Reference Range Interpretation Comments UA pH (test code = UA pH) 5.0 5.0-8.0 N [facility] CenterLqrdlavIWNWUTJIWJ4703-17-67 06:52:38 Test Item Value Reference Range Interpretation Comments UA Spec Grav (test code = UA Spec Grav) 1.022 N [facility] CenterHjncympXZGTDNDOKC3710-96-11 06:52:38 Test Item Value Reference Range Interpretation Comments UA Turbidity (test code Slight A = UA Turbidity) *ABN*(10/04/2012 01:52:38) [facility] CenterHknivspHZFAOJMQVW2330-43-40 06:52:38 Test Item Value Reference Range Interpretation Comments UA Nitrite (test code Negative (10/04/2012 N = UA Nitrite) 01:52:38) [facility] HospitalIqjhtlaRDXTFNOZDY7263-37-08 06:52:38 Test Item Value Reference Range Interpretation Comments UA Blood (test code = Small *ABN*(10/04/2012 A UA Blood) 01:52:38) [facility] HospitalVkeyurgFZXJBYEDRS6357-70-68 06:52:38 Test Item Value Reference Range Interpretation Comments UA Bili (test code = Negative *NA*(10/04/2012 UA Bili) 01:52:38) [facility] HospitalUodkecaTRWRLTMWXU1614-26-49 06:52:38 Test Item Value Reference Range Interpretation Comments UA Ketones (test code Negative mg/dL = UA Ketones) *NA*(10/04/2012 01:52:38) [facility] HospitalUpjrthyTIKOTNHBBN4887-83-45 06:52:38 Test Item Value Reference Range Interpretation Comments UA Glucose (test code = 30 mg/dL A UA Glucose) *ABN*(10/04/2012 01:52:38) [facility] HospitalVjymmvhJSTOYRZYQC0601-72-19 06:52:38 Test Item Value Reference Range Interpretation Comments UA Urobilinogen (test code *NA*(10/04/2012 0.1-1.0 = UA Urobilinogen) 01:52:38) [facility] HospitalAyozhxjVFUJTMNJAI5358-37-66 06:52:38 Test Item Value Reference Range Interpretation Comments UA Color (test code = Yellow *NA*(10/04/2012 UA Color) 01:52:38) [facility] HospitalCkiswmaRFVRHNLXDE3856-46-61 06:52:38 Test Item Value Reference Range Interpretation Comments UA Bacteria (test code Occasional /HPF = UA Bacteria) *NA*(10/04/2012 01:52:38) [facility] HospitalThkxbymNDETHQEKGA0029-38-55 06:52:38 Test Item Value Reference Range Interpretation Comments UA Sq Epi (test code Occasional /LPF = UA Sq Epi) *NA*(10/04/2012 01:52:38) [facility] HospitalRittrzbPNKBAKZZFL9058-15-28 06:52:38 Test Item Value Reference Range Interpretation Comments UA RBC (test code = 6 See_Comment H [Automa juan message] The UA RBC) system which ge nerated this result transmit juan reference range : <=2. The reference range was not used to interpr et this result as lashonda l/abnormal. [facility] CenterAsjcwmaTZKRXWEELE0157-40-17 06:52:38 Test Item Value Reference Range Interpretation Comments UA Leuk Est (test code Small *ABN*(10/04/2012 A = UA Leuk Est) 01:52:38) [facility] HospitalVlwfjkcZNJJPFBKON3887-00-52 06:52:38 Test Item Value Reference Range Interpretation Comments UA WBC (test code = 12 See_Comment H [Automa juan message] The UA WBC) system which ge nerated this result transmit juan reference range : <=5. The reference range was not used to interpr et this result as lashonda l/abnormal. [facility] CenterDlqhxizECUTCZRGQI8571-50-32 06:52:38 Test Item Value Reference Range Interpretation Comments UA Protein (test code = 10 mg/dL A UA Protein) *ABN*(10/04/2012 01:52:38) [facility] HospitalCzxtnftNPPDIGKLXE6876-15-30 06:52:38 Test Item Value Reference Range Interpretation Comments UA pH (test code = UA pH) 5.0 5.0-8.0 N [facility] CenterQuevkunUZPMEMONYJ9567-26-90 06:52:38 Test Item Value Reference Range Interpretation Comments UA Spec Grav (test code = UA Spec Grav) 1.022 N [facility] CenterYyxtlleLXHZGOMUYO1588-80-70 06:52:38 Test Item Value Reference Range Interpretation Comments UA Turbidity (test code Slight A = UA Turbidity) *ABN*(10/04/2012 01:52:38) [facility] CenterAloukuyTVHBXSTMGI5683-42-01 06:52:38 Test Item Value Reference Range Interpretation Comments UA Nitrite (test code Negative (10/04/2012 N = UA Nitrite) 01:52:38) [facility] CenterNwwoyqzRMTEYEOKLD8044-12-10 06:52:38 Test Item Value Reference Range Interpretation Comments UA Blood (test code = Small *ABN*(10/04/2012 A UA Blood) 01:52:38) [facility] CenterTlsxmshHFVMIVJKYT3976-74-23 06:52:38 Test Item Value Reference Range Interpretation Comments UA Bili (test code = Negative *NA*(10/04/2012 UA Bili) 01:52:38) [facility] HospitalPsvzpwgRFTTMVVIEC8834-08-44 06:52:38 Test Item Value Reference Range Interpretation Comments UA Ketones (test code Negative mg/dL = UA Ketones) *NA*(10/04/2012 01:52:38) [facility] HospitalHwxoaylHHIITZXJXU6461-62-08 06:52:38 Test Item Value Reference Range Interpretation Comments UA Glucose (test code = 30 mg/dL A UA Glucose) *ABN*(10/04/2012 01:52:38) [facility] HospitalYxfudsqOWXDHJASDP4269-08-82 06:52:38 Test Item Value Reference Range Interpretation Comments UA Urobilinogen (test code *NA*(10/04/2012 0.1-1.0 = UA Urobilinogen) 01:52:38) [facility] HospitalIkywwdxDNUOEXOCMS4385-80-37 06:52:38 Test Item Value Reference Range Interpretation Comments UA Color (test code = Yellow *NA*(10/04/2012 UA Color) 01:52:38) [facility] HospitalGfpwvhoJCKLHHJOVC1668-84-16 06:52:38 Test Item Value Reference Range Interpretation Comments UA Bacteria (test code Occasional /HPF = UA Bacteria) *NA*(10/04/2012 01:52:38) [facility] HospitalCoxvbacIDSYETCJKE1101-74-59 06:52:38 Test Item Value Reference Range Interpretation Comments UA Sq Epi (test code Occasional /LPF = UA Sq Epi) *NA*(10/04/2012 01:52:38) [facility] HospitalPtjxblcSLZOASADFG9479-58-38 06:52:38 Test Item Value Reference Range Interpretation Comments UA RBC (test code = 6 See_Comment H [Automa juan message] The UA RBC) system which ge nerated this result transmit juan reference range : <=2. The reference range was not used to interpr et this result as lashonda l/abnormal. [facility] HospitalJrhsrceRFGMDUEXTO1375-90-79 06:52:38 Test Item Value Reference Range Interpretation Comments UA Leuk Est (test code Small *ABN*(10/04/2012 A = UA Leuk Est) 01:52:38) [facility] HospitalYunailvKLOFQOKJQE6759-10-86 06:52:38 Test Item Value Reference Range Interpretation Comments UA WBC (test code = 12 See_Comment H [Automa juan message] The UA WBC) system which ge nerated this result transmit juan reference range : <=5. The reference range was not used to interpr et this result as lashonda l/abnormal. [facility] HospitalItajfwrGKRNQOWAXP4869-05-86 06:52:38 Test Item Value Reference Range Interpretation Comments UA Protein (test code = 10 mg/dL A UA Protein) *ABN*(10/04/2012 01:52:38) [facility] HospitalYliwjeeQXOBYROBAP9186-80-44 06:52:38 Test Item Value Reference Range Interpretation Comments UA pH (test code = UA pH) 5.0 5.0-8.[address] [facility] HospitalHmsuoixVGOKNSDTVY5465-42-74 06:52:38 Test Item Value Reference Range Interpretation Comments UA Spec Grav (test code = UA Spec Grav) 1.[address] [facility] HospitalZaxwefjXNPAOYTEQK5678-25-11 06:52:38 Test Item Value Reference Range Interpretation Comments UA Turbidity (test code Slight A = UA Turbidity) *ABN*(10/04/2012 01:52:38) [facility] HospitalZizmmnoBTALPYOJVJ7606-18-52 06:52:38 Test Item Value Reference Range Interpretation Comments UA Nitrite (test code Negative (10/04/2012 N = UA Nitrite) 01:52:38) [facility] HospitalGopgdrgOESLJMLIGT5880-17-07 06:52:38 Test Item Value Reference Range Interpretation Comments UA Blood (test code = Small *ABN*(10/04/2012 A UA Blood) 01:52:38) [facility] HospitalXtbjidlNBMIDYWGID0263-05-18 06:52:38 Test Item Value Reference Range Interpretation Comments UA Bili (test code = Negative *NA*(10/04/2012 UA Bili) 01:52:38) [facility] HospitalUlpnjzbDUXTGFQCKQ5618-29-84 06:52:38 Test Item Value Reference Range Interpretation Comments UA Ketones (test code Negative mg/dL = UA Ketones) *NA*(10/04/2012 01:52:38) [facility] HospitalJnipkweCDMRKTLWXG3704-30-71 06:52:38 Test Item Value Reference Range Interpretation Comments UA Glucose (test code = 30 mg/dL A UA Glucose) *ABN*(10/04/2012 01:52:38) [facility] HospitalOaxmntiROFNGVODJG3326-88-16 06:52:38 Test Item Value Reference Range Interpretation Comments UA Urobilinogen (test code *NA*(10/04/2012 0.1-1.0 = UA Urobilinogen) 01:52:38) [facility] CenterYpbdfysGVPJWAIIKN9865-13-92 06:52:38 Test Item Value Reference Range Interpretation Comments UA Color (test code = Yellow *NA*(10/04/2012 UA Color) 01:52:38) [facility] CenterGsnlwyrZMCJEMFQQI2154-83-91 06:52:38 Test Item Value Reference Range Interpretation Comments UA Bacteria (test code Occasional /HPF = UA Bacteria) *NA*(10/04/2012 01:52:38) [facility] CenterMaunpngJBJKMNHXXF7380-50-34 06:52:38 Test Item Value Reference Range Interpretation Comments UA Sq Epi (test code Occasional /LPF = UA Sq Epi) *NA*(10/04/2012 01:52:38) [facility] HospitalDjckpbuNDMKQNWJJW6213-00-03 06:52:38 Test Item Value Reference Range Interpretation Comments UA RBC (test code = 6 See_Comment H [Automa juan message] The UA RBC) system which ge nerated this result transmit juan reference range : <=2. The reference range was not used to interpr et this result as lashonda l/abnormal. [facility] CenterVlqlzcqHQZSCBBPUW3241-46-41 06:52:38 Test Item Value Reference Range Interpretation Comments UA Leuk Est (test code Small *ABN*(10/04/2012 A = UA Leuk Est) 01:52:38) [facility] HospitalInuzysfHEJHHQRNRO5460-15-67 06:52:38 Test Item Value Reference Range Interpretation Comments UA WBC (test code = 12 See_Comment H [Automa juan message] The UA WBC) system which ge nerated this result transmit juan reference range : <=5. The reference range was not used to interpr et this result as lashonda l/abnormal. [facility] CenterJgacwjxRNNOOWPTXB9985-68-37 06:52:38 Test Item Value Reference Range Interpretation Comments UA Protein (test code = 10 mg/dL A UA Protein) *ABN*(10/04/2012 01:52:38) [facility] CenterClubnjeJNBZDWXWVK6514-54-82 06:52:38 Test Item Value Reference Range Interpretation Comments UA pH (test code = UA pH) 5.0 5.0-8.[address] [facility] HospitalFhqggfdNOEPFGBCHQ8004-26-27 06:52:38 Test Item Value Reference Range Interpretation Comments UA Spec Grav (test code = UA Spec Grav) 1.[address] [facility] HospitalXpyfaweSTBNMKNWNA3138-24-15 06:52:38 Test Item Value Reference Range Interpretation Comments UA Turbidity (test code Slight A = UA Turbidity) *ABN*(10/04/2012 01:52:38) [facility] HospitalWqzmijkIGRIZFIEGQ9001-91-55 06:52:38 Test Item Value Reference Range Interpretation Comments UA Nitrite (test code Negative (10/04/2012 N = UA Nitrite) 01:52:38) [facility] HospitalUcabnlhGCDKFHLOFB2854-59-44 06:52:38 Test Item Value Reference Range Interpretation Comments UA Blood (test code = Small *ABN*(10/04/2012 A UA Blood) 01:52:38) [facility] HospitalKhxzlpkRTJYYASWFK4392-31-62 06:52:38 Test Item Value Reference Range Interpretation Comments UA Bili (test code = Negative *NA*(10/04/2012 UA Bili) 01:52:38) [facility] HospitalPqzilnbXQQGAFIEPS4422-56-23 06:52:38 Test Item Value Reference Range Interpretation Comments UA Ketones (test code Negative mg/dL = UA Ketones) *NA*(10/04/2012 01:52:38) [facility] [facility]GpmabvtSOMNPQMUXJ9089-85-04 06:52:38 Test Item Value Reference Range Interpretation Comments UA Glucose (test code = 30 mg/dL A UA Glucose) *ABN*(10/04/2012 01:52:38) [facility] HospitalCepxeemRFXXXZXRMH8615-53-26 06:52:38 Test Item Value Reference Range Interpretation Comments UA Urobilinogen (test code *NA*(10/04/2012 0.1-1.0 = UA Urobilinogen) 01:52:38) [facility] HospitalAfosevdGNWWEXQAYD2080-93-07 06:52:38 Test Item Value Reference Range Interpretation Comments UA Color (test code = Yellow *NA*(10/04/2012 UA Color) 01:52:38) [facility] HospitalLujrpkbUEEGIYCLHB1487-03-80 06:52:38 Test Item Value Reference Range Interpretation Comments UA Bacteria (test code Occasional /HPF = UA Bacteria) *NA*(10/04/2012 01:52:38) [facility]MaogvzmRTZWRTZDXF2301-48-94 06:52:38 Test Item Value Reference Range Interpretation Comments UA Sq Epi (test code Occasional /LPF = UA Sq Epi) *NA*(10/04/2012 01:52:38) [facility]OzyxznbNCTNWKFOEE4139-45-94 06:52:38 Test Item Value Reference Range Interpretation Comments UA RBC (test code = 6 See_Comment H [Automa juan message] The UA RBC) system which ge nerated this result transmit juan reference range : <=2. The reference range was not used to interpr et this result as lashonad l/abnormal. [facility] CenterHrajifdPQAXJBGFRW9053-89-42 06:52:38 Test Item Value Reference Range Interpretation Comments UA Leuk Est (test code Small *ABN*(10/04/2012 A = UA Leuk Est) 01:52:38) [facility] CenterEzmyycpDKWGIPJRQK1676-90-80 06:52:38 Test Item Value Reference Range Interpretation Comments UA WBC (test code = 12 See_Comment H [Automa juan message] The UA WBC) system which ge nerated this result transmit juan reference range : <=5. The reference range was not used to interpr et this result as lashonda l/abnormal. [facility] HospitalFdupfvwOHGBBPZROA5558-55-92 06:52:38 Test Item Value Reference Range Interpretation Comments UA Protein (test code = 10 mg/dL A UA Protein) *ABN*(10/04/2012 01:52:38) [facility] CenterJwojstbNOBBXPEKZJ7322-91-63 06:52:38 Test Item Value Reference Range Interpretation Comments UA pH (test code = UA pH) 5.0 5.0-8.0 N [facility] CenterVemndijTJYFNPLYWB9706-32-11 06:52:38 Test Item Value Reference Range Interpretation Comments UA Spec Grav (test code = UA Spec Grav) 1.022 N [facility] HospitalLbnnxjoCLZMKKHOLL0740-10-55 06:52:38 Test Item Value Reference Range Interpretation Comments UA Turbidity (test code Slight A = UA Turbidity) *ABN*(10/04/2012 01:52:38) [facility] CenterQsrefczTCFIOQUUSR2821-23-52 06:52:38 Test Item Value Reference Range Interpretation Comments UA Nitrite (test code Negative (10/04/2012 N = UA Nitrite) 01:52:38) [facility] HospitalVcdbrilXKKLOMYXDB7381-28-78 06:52:38 Test Item Value Reference Range Interpretation Comments UA Blood (test code = Small *ABN*(10/04/2012 A UA Blood) 01:52:38) [facility] HospitalZjcchdkHOVDLGVMKE7097-29-14 06:52:38 Test Item Value Reference Range Interpretation Comments UA Bili (test code = Negative *NA*(10/04/2012 UA Bili) 01:52:38) [facility] HospitalExlzjefSXJNVSXKKX0467-65-48 06:52:38 Test Item Value Reference Range Interpretation Comments UA Ketones (test code Negative mg/dL = UA Ketones) *NA*(10/04/2012 01:52:38) [facility] HospitalEmhpdtbZYWXIBZJDX6090-79-99 06:52:38 Test Item Value Reference Range Interpretation Comments UA Glucose (test code = 30 mg/dL A UA Glucose) *ABN*(10/04/2012 01:52:38) [facility] HospitalGxjonqaMBXGDMRLOC7049-33-83 06:52:38 Test Item Value Reference Range Interpretation Comments UA Urobilinogen (test code *NA*(10/04/2012 0.1-1.0 = UA Urobilinogen) 01:52:38) [facility] HospitalZabeupfPKPKEPSZVO9222-67-88 06:52:38 Test Item Value Reference Range Interpretation Comments UA Color (test code = Yellow *NA*(10/04/2012 UA Color) 01:52:38) [facility] HospitalLkodhptYPRLTDHDNL3813-71-46 06:52:38 Test Item Value Reference Range Interpretation Comments UA Bacteria (test code Occasional /HPF = UA Bacteria) *NA*(10/04/2012 01:52:38) [facility] HospitalGfimacqEYNOHWBQYI3926-71-34 06:52:38 Test Item Value Reference Range Interpretation Comments UA Sq Epi (test code Occasional /LPF = UA Sq Epi) *NA*(10/04/2012 01:52:38) [facility] HospitalIdhjfakSWQFLRVGAX3995-40-35 06:52:38 Test Item Value Reference Range Interpretation Comments UA RBC (test code = 6 See_Comment H [Automa juan message] The UA RBC) system which ge nerated this result transmit juan reference range : <=2. The reference range was not used to interpr et this result as lashonda l/abnormal. [facility] HospitalGxsmkesCPHXDLBXZW4618-66-38 06:52:38 Test Item Value Reference Range Interpretation Comments UA Leuk Est (test code Small *ABN*(10/04/2012 A = UA Leuk Est) 01:52:38) [facility] CenterLpwuletWKZBOCYKKC2737-71-52 06:52:38 Test Item Value Reference Range Interpretation Comments UA WBC (test code = 12 See_Comment H [Automa juan message] The UA WBC) system which ge nerated this result transmit juan reference range : <=5. The reference range was not used to interpr et this result as lashonda l/abnormal. [facility] HospitalJvqavdvTLKRIKTWEF9045-76-81 06:52:38 Test Item Value Reference Range Interpretation Comments UA Protein (test code = 10 mg/dL A UA Protein) *ABN*(10/04/2012 01:52:38) [facility] CenterDmeyaloTPAZVLKLOK7691-68-85 06:52:38 Test Item Value Reference Range Interpretation Comments UA pH (test code = UA pH) 5.0 5.0-8.0 N [facility] CenterUrohoyqBWSGXJOIOD8083-45-38 06:52:38 Test Item Value Reference Range Interpretation Comments UA Spec Grav (test code = UA Spec Grav) 1.022 N [facility] HospitalOsihkbaCUJYHEEUGZ4408-21-00 06:52:38 Test Item Value Reference Range Interpretation Comments UA Turbidity (test code Slight A = UA Turbidity) *ABN*(10/04/2012 01:52:38) [facility] CenterMzusbkgNZGQAGUAVE3859-72-38 06:52:38 Test Item Value Reference Range Interpretation Comments UA Nitrite (test code Negative (10/04/2012 N = UA Nitrite) 01:52:38) [facility] CenterFzfrgpiGTMEUJDBOP5184-34-78 06:52:38 Test Item Value Reference Range Interpretation Comments UA Blood (test code = Small *ABN*(10/04/2012 A UA Blood) 01:52:38) [facility] CenterRpmjlhbOKVLOPCUAZ8608-84-16 06:52:38 Test Item Value Reference Range Interpretation Comments UA Bili (test code = Negative *NA*(10/04/2012 UA Bili) 01:52:38) [facility] CenterHswjblkRIUOCNNXNQ5509-28-10 06:52:38 Test Item Value Reference Range Interpretation Comments UA Ketones (test code Negative mg/dL = UA Ketones) *NA*(10/04/2012 01:52:38) [facility] HospitalJkxrwouURFTICBMZK9856-41-67 06:52:38 Test Item Value Reference Range Interpretation Comments UA Glucose (test code = 30 mg/dL A UA Glucose) *ABN*(10/04/2012 01:52:38) [facility]VomtksxUWDQKRDCR1263-62-78 06:52:00 Test Item Value Reference Range Interpretation Comments Phosphorus (test code = Phosphorus) 3.5 2.5-4.5 N [facility] KlebergKgrjklyADGHEUJBM1026-07-80 06:52:00 Test Item Value Reference Range Interpretation Comments AGAP (test code = AGAP) 13.4 10.0-20.0 N [facility] KlebergOypbxbkBYGYEEBLD7281-34-06 06:52:00 Test Item Value Reference Range Interpretation Comments Glucose Lvl (test code = Glucose Lvl) 181 70-99 H [facility] KlebergYjkssjiFIVWFSFLL5107-31-31 06:52:00 Test Item Value Reference Range Interpretation Comments Creatinine Lvl (test code = Creatinine 0.9 0.5-1.4 N Lvl) [facility] KlebergUlnseobWSYDTMPKO5913-95-69 06:52:00 Test Item Value Reference Range Interpretation Comments BUN (test code = BUN) 17 7-22 N [facility] KlebergWojipmbMWIHQEVJW4691-04-90 06:52:00 Test Item Value Reference Range Interpretation Comments Sodium Lvl (test code = Sodium Lvl) 140 135-145 N [facility] KlebergQztyehaILAVUBJRA0863-60-55 06:52:00 Test Item Value Reference Range Interpretation Comments Chloride Lvl (test code = Chloride Lvl) 105 95-109 N [facility] KlebergDlagrntHCMECBLUO9121-19-50 06:52:00 Test Item Value Reference Range Interpretation Comments Calcium Lvl (test code = Calcium Lvl) 9.7 8.5-10.5 N [facility] KlebergGolerhiWOXIJMMSP2554-70-76 06:52:00 Test Item Value Reference Range Interpretation Comments Potassium Lvl (test code = Potassium 4.4 3.5-5.1 N Lvl) [facility] KlebergYghrwsfFQCACCUOF3794-80-08 06:52:00 Test Item Value Reference Range Interpretation Comments CO2 (test code = CO2) 26 24-32 N [facility] KlebergXybtxtxORCVGRTFW9294-61-75 06:52:00 Test Item Value Reference Range Interpretation Comments eGFR (test code = eGFR) 65 [facility] KlebergJabgrctHQEWAFEUL7724-40-99 06:52:00 Test Item Value Reference Range Interpretation Comments Magnesium Lvl (test code = Magnesium 1.5 1.8-2.4 L Lvl) [facility]neWmxaomyHPSDHASGSB5885-42-64 06:52:00 Test Item Value Reference Range Interpretation Comments RBC (test code = RBC) 4.85 4.20-5.40 N [facility] Cle[facility]neUzxitsfPXTYXQMEHL8337-03-40 06:52:00 Test Item Value Reference Range Interpretation Comments WBC (test code = WBC) 9.2 3.7-10.4 N [facility]neHknutjhFDZIMQJALG8530-52-82 06:52:00 Test Item Value Reference Range Interpretation Comments Hgb (test code = Hgb) 14.9 12.0-16.0 N [facility]neFxvgimbYAJLGJQRQN9923-47-58 06:52:00 Test Item Value Reference Range Interpretation Comments MCHC (test code = MCHC) 33.3 32.0-36.0 N [facility]neIrfamcrAQNGPQIPOO0152-87-59 06:52:00 Test Item Value Reference Range Interpretation Comments MCH (test code = MCH) 30.7 pg 27.0-31.0 N [facility]neHufuxvzCETPHIXPSA2506-33-91 06:52:00 Test Item Value Reference Range Interpretation Comments Hct (test code = Hct) 44.9 36.0-48.0 N [facility]neThaptouPDVBWGVHON2279-64-69 06:52:00 Test Item Value Reference Range Interpretation Comments MCV (test code = MCV) 92.4 81.0-99.0 N [facility]neXybjdikGCDHCJOFKB5858-61-82 06:52:00 Test Item Value Reference Range Interpretation Comments RDW (test code = RDW) 14.5 11.5-14.5 N [facility]neFaumuavYAVDXWQOMY6951-75-92 06:52:00 Test Item Value Reference Range Interpretation Comments Platelet (test code = Platelet) 213 133-450 N [facility]neSwfeklwEHPXCEJUNF6840-56-01 06:52:00 Test Item Value Reference Range Interpretation Comments MPV (test code = MPV) 9.5 7.4-10.4 N [facility] Cle[facility]neZokhedmAJFGXBBEON7037-65-14 06:52:00 Test Item Value Reference Range Interpretation Comments Segs-Bands # (test code = Segs-Bands #) 7.7 1.5-8.1 N [facility]neZmjjrxlKQFBUBJORA0654-80-35 06:52:00 Test Item Value Reference Range Interpretation Comments Basophils (test code = 0.3 See_Comment N [Aut omated message] The Basophils) system which ge nerated this result tra nsmitted reference range : <=1.0. The reference r leatha was not used to int erpret this result as normal/abnormal . [facility]neIbhhwsjXZEDJIIWGV6134-70-56 06:52:00 Test Item Value Reference Range Interpretation Comments Monocytes # (test code 0.6 See_Comment N [Aut omated message] The = Monocytes #) system which generated this result tra nsmitted reference range : <=0.8. The reference r leatha was not used to int erpret this result as normal/abnormal . [facility]neJtijpngQGYKUEWDRW8677-99-41 06:52:00 Test Item Value Reference Range Interpretation Comments Lymphocytes # (test code = Lymphocytes 0.9 1.0-5.5 L #) [facility]neJckdcbvYDRLWWTQZD9018-68-34 06:52:00 Test Item Value Reference Range Interpretation Comments Lymphocytes (test code = Lymphocytes) 9.5 20.0-40.0 L [facility]neQiwanisFJTJMGLIEF4109-96-39 06:52:00 Test Item Value Reference Range Interpretation Comments Segs (test code = Segs) 84.1 45.0-75.0 H [facility]neCmikcivATGQWPWVNT5735-32-51 06:52:00 Test Item Value Reference Range Interpretation Comments Monocytes (test code = Monocytes) 6.0 2.0-12.0 N [facility]neHcwvtmvBKALISLDRV0949-30-74 06:52:00 Test Item Value Reference Range Interpretation Comments Eosinophils (test code = 0.1 See_Comment N [A utomated message] The Eosinophils) system which ge nerated this result tra nsmitted reference range : <=4.0. The reference r leatha was not used to int erpret this result as normal/abnormal . [facility]bergHkvjgveOTRCCQZHA1492-45-86 06:52:00 Test Item Value Reference Range Interpretation Comments Phosphorus (test code = Phosphorus) 3.5 2.5-4.5 N [facility] KlebergZpakjpsIFDBNRYCZ5897-17-38 06:52:00 Test Item Value Reference Range Interpretation Comments AGAP (test code = AGAP) 13.4 10.0-20.0 N [facility] KlebergVtczkduGPHONRZVX7665-86-40 06:52:00 Test Item Value Reference Range Interpretation Comments Glucose Lvl (test code = Glucose Lvl) 181 70-99 H [facility] KlebergKpzxudwBBUERSQDZ7515-20-04 06:52:00 Test Item Value Reference Range Interpretation Comments Creatinine Lvl (test code = Creatinine 0.9 0.5-1.4 N Lvl) [facility] KlebergBljvbeuWXBNIPMFG0596-21-40 06:52:00 Test Item Value Reference Range Interpretation Comments BUN (test code = BUN) 17 7-22 N [facility] KlebergRltjrsfHOESECBPD3755-94-56 06:52:00 Test Item Value Reference Range Interpretation Comments Sodium Lvl (test code = Sodium Lvl) 140 135-145 N [facility] KlebergPdbstitRXHUBWZZD5269-06-27 06:52:00 Test Item Value Reference Range Interpretation Comments Chloride Lvl (test code = Chloride Lvl) 105 95-109 N [facility] KlebergKvieyufKJXAFCXCO2269-94-24 06:52:00 Test Item Value Reference Range Interpretation Comments Calcium Lvl (test code = Calcium Lvl) 9.7 8.5-10.5 N [facility] KlebergVkuwvaoGQOIZHHYP2343-67-63 06:52:00 Test Item Value Reference Range Interpretation Comments Potassium Lvl (test code = Potassium 4.4 3.5-5.1 N Lvl) [facility] KlebergNilrmpjPAYUYSEOW9207-25-83 06:52:00 Test Item Value Reference Range Interpretation Comments CO2 (test code = CO2) 26 24-32 N [facility] KlebergSmfhqusBGPJFGVML4344-17-88 06:52:00 Test Item Value Reference Range Interpretation Comments eGFR (test code = eGFR) 65 [facility] KlebergXxxbqyzCAIDERHVB1126-60-60 06:52:00 Test Item Value Reference Range Interpretation Comments Magnesium Lvl (test code = Magnesium 1.5 1.8-2.4 L Lvl) [facility]neBwkpsmgLPNSUGHBUU1029-53-12 06:52:00 Test Item Value Reference Range Interpretation Comments RBC (test code = RBC) 4.85 4.20-5.40 N [facility]neIjbklcdEOKRTDRCTI3970-61-17 06:52:00 Test Item Value Reference Range Interpretation Comments WBC (test code = WBC) 9.2 3.7-10.4 N [facility]neTwqaxcfTXQFDXLRAS6576-67-15 06:52:00 Test Item Value Reference Range Interpretation Comments Hgb (test code = Hgb) 14.9 12.0-16.0 N [facility]neZumuxqdCGXBKIVXTW2621-95-87 06:52:00 Test Item Value Reference Range Interpretation Comments MCHC (test code = MCHC) 33.3 32.0-36.0 N [facility]neSvzaylcRCILOLXWVD6263-91-53 06:52:00 Test Item Value Reference Range Interpretation Comments MCH (test code = MCH) 30.7 pg 27.0-31.0 N [facility]neNbvtfgmTDYUGXOCFN1515-49-46 06:52:00 Test Item Value Reference Range Interpretation Comments Hct (test code = Hct) 44.9 36.0-48.0 N [facility]neHgcdaxiXWBESPLFGE4475-59-94 06:52:00 Test Item Value Reference Range Interpretation Comments MCV (test code = MCV) 92.4 81.0-99.0 N [facility]neUzzipjcTSBXWGLQCK1046-47-28 06:52:00 Test Item Value Reference Range Interpretation Comments RDW (test code = RDW) 14.5 11.5-14.5 N [facility]neOkonsjrKWYOLMBBPF0646-70-81 06:52:00 Test Item Value Reference Range Interpretation Comments Platelet (test code = Platelet) 213 133-450 N [facility]neDapxaybNDFMQSZAJI0548-59-52 06:52:00 Test Item Value Reference Range Interpretation Comments MPV (test code = MPV) 9.5 7.4-10.4 N [facility]neNjijqydYKWIMSMDIL6168-50-68 06:52:00 Test Item Value Reference Range Interpretation Comments Segs-Bands # (test code = Segs-Bands #) 7.7 1.5-8.1 N [facility]neLebaieoDMKGESODDD6140-24-30 06:52:00 Test Item Value Reference Range Interpretation Comments Basophils (test code = 0.3 See_Comment N [Aut omated message] The Basophils) system which ge nerated this result tra nsmitted reference range : <=1.0. The reference r leatha was not used to int erpret this result as normal/abnormal . [facility]neWmtdaohHIIVCXQUCC6397-05-77 06:52:00 Test Item Value Reference Range Interpretation Comments Monocytes # (test code 0.6 See_Comment N [Aut omated message] The = Monocytes #) system which generated this result tra nsmitted reference range : <=0.8. The reference r leatha was not used to int erpret this result as normal/abnormal . [facility]neGnlitahOQTUXMTFNE7552-48-10 06:52:00 Test Item Value Reference Range Interpretation Comments Lymphocytes # (test code = Lymphocytes 0.9 1.0-5.5 L #) [facility]neElkyvlfDPLVVOVSPZ5862-23-10 06:52:00 Test Item Value Reference Range Interpretation Comments Lymphocytes (test code = Lymphocytes) 9.5 20.0-40.0 L [facility]neVvhzhvtRABMXKTONJ4724-11-55 06:52:00 Test Item Value Reference Range Interpretation Comments Segs (test code = Segs) 84.1 45.0-75.0 H [facility]neNgcihnfSJVKJVIBIR7787-75-50 06:52:00 Test Item Value Reference Range Interpretation Comments Monocytes (test code = Monocytes) 6.0 2.0-12.0 N [facility]neSfgbdrgQBTEKITPJI2668-27-50 06:52:00 Test Item Value Reference Range Interpretation Comments Eosinophils (test code = 0.1 See_Comment N [A utomated message] The Eosinophils) system which ge nerated this result tra nsmitted reference range : <=4.0. The reference r leatha was not used to int erpret this result as normal/abnormal . [facility] KlebergDrqksphGQUKNFOPT6780-31-64 06:52:00 Test Item Value Reference Range Interpretation Comments Phosphorus (test code = Phosphorus) 3.5 2.5-4.5 N [facility] KlebergXfiwkxfZJXHRVSLI4775-57-90 06:52:00 Test Item Value Reference Range Interpretation Comments AGAP (test code = AGAP) 13.4 10.0-20.0 N [facility] KlebergExsilugFMCCAWEKW9360-39-75 06:52:00 Test Item Value Reference Range Interpretation Comments Glucose Lvl (test code = Glucose Lvl) 181 70-99 H [facility] KlebergSzeotkgGSGDGARHR0732-03-46 06:52:00 Test Item Value Reference Range Interpretation Comments Creatinine Lvl (test code = Creatinine 0.9 0.5-1.4 N Lvl) [facility] KlebergXqetbwwSXIKWRHLC3695-45-19 06:52:00 Test Item Value Reference Range Interpretation Comments BUN (test code = BUN) 17 7-22 N [facility] KlebergMbtetjnXHVFMRVHX4648-39-26 06:52:00 Test Item Value Reference Range Interpretation Comments Sodium Lvl (test code = Sodium Lvl) 140 135-145 N [facility] KlebergSsadeidBODULFQUX9337-79-92 06:52:00 Test Item Value Reference Range Interpretation Comments Chloride Lvl (test code = Chloride Lvl) 105 95-109 N [facility] KlebergKjtcdcdHZLASYRCF6329-64-19 06:52:00 Test Item Value Reference Range Interpretation Comments Calcium Lvl (test code = Calcium Lvl) 9.7 8.5-10.5 N [facility] KlebergXkegfofWULNWCCDY2678-75-44 06:52:00 Test Item Value Reference Range Interpretation Comments Potassium Lvl (test code = Potassium 4.4 3.5-5.1 N Lvl) [facility] KlebergZlqxzeiVWKJXNCXV2004-73-79 06:52:00 Test Item Value Reference Range Interpretation Comments CO2 (test code = CO2) 26 24-32 N [facility] KlebergDgzslooJSZLKWCIH5251-53-52 06:52:00 Test Item Value Reference Range Interpretation Comments eGFR (test code = eGFR) 65 [facility] KlebergIcvrwboWHMJYSHLS6652-91-08 06:52:00 Test Item Value Reference Range Interpretation Comments Magnesium Lvl (test code = Magnesium 1.5 1.8-2.4 L Lvl) [facility]neExwdjlzTWTPSSNLEA3080-20-57 06:52:00 Test Item Value Reference Range Interpretation Comments RBC (test code = RBC) 4.85 4.20-5.40 N [facility]neApnqdkvNWQHOEGJGH1838-18-17 06:52:00 Test Item Value Reference Range Interpretation Comments WBC (test code = WBC) 9.2 3.7-10.4 N [facility]neEoamruuDXYKJJYIFY1590-33-32 06:52:00 Test Item Value Reference Range Interpretation Comments Hgb (test code = Hgb) 14.9 12.0-16.0 N [facility]neWxgplseCJRCBCGTJC4680-84-96 06:52:00 Test Item Value Reference Range Interpretation Comments MCHC (test code = MCHC) 33.3 32.0-36.0 N [facility] Cle[facility]neBzbcfhcOXYXPHHYCF0723-14-29 06:52:00 Test Item Value Reference Range Interpretation Comments MCH (test code = MCH) 30.7 pg 27.0-31.0 N [facility]neEesvhecHIDOPRNVGN8420-78-51 06:52:00 Test Item Value Reference Range Interpretation Comments Hct (test code = Hct) 44.9 36.0-48.0 N [facility]neLvqqnmiKMRLRVLXZT1478-92-18 06:52:00 Test Item Value Reference Range Interpretation Comments MCV (test code = MCV) 92.4 81.0-99.0 N [facility]neEecmrfuCVNTSQITLC2770-44-93 06:52:00 Test Item Value Reference Range Interpretation Comments RDW (test code = RDW) 14.5 11.5-14.5 N [facility]neTjripypHGOAFCXZWV3559-08-50 06:52:00 Test Item Value Reference Range Interpretation Comments Platelet (test code = Platelet) 213 133-450 N [facility]neWfufdyzFCTRXUPJDC6412-29-75 06:52:00 Test Item Value Reference Range Interpretation Comments MPV (test code = MPV) 9.5 7.4-10.4 N [facility]neVsxqxqoQZCEWSBBJU8501-01-48 06:52:00 Test Item Value Reference Range Interpretation Comments Segs-Bands # (test code = Segs-Bands #) 7.7 1.5-8.1 N [facility]neSzkdpfkFMTJOXYPVQ8076-80-05 06:52:00 Test Item Value Reference Range Interpretation Comments Basophils (test code = 0.3 See_Comment N [Aut omated message] The Basophils) system which ge nerated this result tra nsmitted reference range : <=1.0. The reference r leatha was not used to int erpret this result as normal/abnormal . [facility]nePnehcugESYSFJCKDQ6069-04-83 06:52:00 Test Item Value Reference Range Interpretation Comments Monocytes # (test code 0.6 See_Comment N [Aut omated message] The = Monocytes #) system which generated this result tra nsmitted reference range : <=0.8. The reference r leatha was not used to int erpret this result as normal/abnormal . [facility] Cle[facility]neMaqmdnmQLVIAYQWOX7015-82-69 06:52:00 Test Item Value Reference Range Interpretation Comments Lymphocytes # (test code = Lymphocytes 0.9 1.0-5.5 L #) [facility] [place]sgupbqTQZONBOFOJ1477-65-04 06:52:00 Test Item Value Reference Range Interpretation Comments Lymphocytes (test code = Lymphocytes) 9.5 20.0-40.0 L [facility] [place]NgjfwhzCPQIBYZTOK7768-87-62 06:52:00 Test Item Value Reference Range Interpretation Comments Segs (test code = Segs) 84.1 45.0-75.0 H [facility] [place]neAxdrptpZQTETUTWBT0024-19-91 06:52:00 Test Item Value Reference Range Interpretation Comments Monocytes (test code = Monocytes) 6.0 2.0-12.0 N [facility] [place]neKxyouncZSKEWEIRPZ3598-18-68 06:52:00 Test Item Value Reference Range Interpretation Comments Eosinophils (test code = 0.1 See_Comment N [A utomated message] The Eosinophils) system which ge nerated this result tra nsmitted reference range : <=4.0. The reference r leatha was not used to int erpret this result as normal/abnormal . [facility]bergNiazwhoCEZVCGHCA3708-01-05 06:52:00 Test Item Value Reference Range Interpretation Comments Phosphorus (test code = Phosphorus) 3.5 2.5-4.5 N [facility] KlebergBefpuauEUXNYBYXJ7041-25-32 06:52:00 Test Item Value Reference Range Interpretation Comments AGAP (test code = AGAP) 13.4 10.0-20.0 N [facility] [place]bergQgsvlndNBXQTXPJD4567-84-18 06:52:00 Test Item Value Reference Range Interpretation Comments Glucose Lvl (test code = Glucose Lvl) 181 70-99 H [facility] KlebergTqiseybZKGFIWHAP9543-79-24 06:52:00 Test Item Value Reference Range Interpretation Comments Creatinine Lvl (test code = Creatinine 0.9 0.5-1.4 N Lvl) [facility]bergWjlbueyMOSUTKNSH4700-73-83 06:52:00 Test Item Value Reference Range Interpretation Comments BUN (test code = BUN) 17 7-22 N [facility] KlebergXslaakrOCGGGRHOS2082-11-91 06:52:00 Test Item Value Reference Range Interpretation Comments Sodium Lvl (test code = Sodium Lvl) 140 135-145 N [facility] KlebergYubyjoaFLWHFNQXH6982-32-46 06:52:00 Test Item Value Reference Range Interpretation Comments Chloride Lvl (test code = Chloride Lvl) 105 95-109 N [facility] [place]bergSpvwssiFMZRTGHDO7621-83-74 06:52:00 Test Item Value Reference Range Interpretation Comments Calcium Lvl (test code = Calcium Lvl) 9.7 8.5-10.5 N [facility] KlebergJvpaqmqLNFASFDML3695-22-24 06:52:00 Test Item Value Reference Range Interpretation Comments Potassium Lvl (test code = Potassium 4.4 3.5-5.1 N Lvl) [facility]bergQrpzjuiOVIAVCJZH3714-47-01 06:52:00 Test Item Value Reference Range Interpretation Comments CO2 (test code = CO2) 26 24-32 N [facility] [place]bergKpxfqtiJTGQZWGLK6201-74-52 06:52:00 Test Item Value Reference Range Interpretation Comments eGFR (test code = eGFR) 65 [facility] KlebergFlbhxkxUDDFONQEQ2431-47-44 06:52:00 Test Item Value Reference Range Interpretation Comments Magnesium Lvl (test code = Magnesium 1.5 1.8-2.4 L Lvl) [facility] [place]neJboycekMGXDMWMLTZ2160-17-61 06:52:00 Test Item Value Reference Range Interpretation Comments RBC (test code = RBC) 4.85 4.20-5.40 N [facility] [place]neUzarfhcBZUWDIHDTR6268-29-17 06:52:00 Test Item Value Reference Range Interpretation Comments WBC (test code = WBC) 9.2 3.7-10.4 N [facility] [place]neLgelmnmVEDREEOGKK2235-33-68 06:52:00 Test Item Value Reference Range Interpretation Comments Hgb (test code = Hgb) 14.9 12.0-16.0 N [facility] [place]neMfdgyqoFKYFRLNLET3556-49-55 06:52:00 Test Item Value Reference Range Interpretation Comments MCHC (test code = MCHC) 33.3 32.0-36.0 N [facility] [place]neQguxiizDWVMZAIZCV5276-36-52 06:52:00 Test Item Value Reference Range Interpretation Comments MCH (test code = MCH) 30.7 pg 27.0-31.0 N [facility] [place]neLbujxoyIEISCFBZTD5262-00-69 06:52:00 Test Item Value Reference Range Interpretation Comments Hct (test code = Hct) 44.9 36.0-48.0 N [facility] [place]neKxhxuzwBUKWOJGRYK0119-19-46 06:52:00 Test Item Value Reference Range Interpretation Comments MCV (test code = MCV) 92.4 81.0-99.0 N [facility] [place]neKlanvusOZBVDFHXSA3028-66-42 06:52:00 Test Item Value Reference Range Interpretation Comments RDW (test code = RDW) 14.5 11.5-14.5 N [facility] [place]neWgmpfteAHDZKBYFQF6901-02-69 06:52:00 Test Item Value Reference Range Interpretation Comments Platelet (test code = Platelet) 213 133-450 N [facility] [place]TpgarvjJEJMKWLTMQ6318-70-27 06:52:00 Test Item Value Reference Range Interpretation Comments MPV (test code = MPV) 9.5 7.4-10.4 N [facility] [place]neTfwfazhTWNXEIBGCM8631-01-73 06:52:00 Test Item Value Reference Range Interpretation Comments Segs-Bands # (test code = Segs-Bands #) 7.7 1.5-8.1 N [facility] [place]neVoackqtTZXFEYOSLX7558-92-36 06:52:00 Test Item Value Reference Range Interpretation Comments Basophils (test code = 0.3 See_Comment N [Aut omated message] The Basophils) system which ge nerated this result tra nsmitted reference range : <=1.0. The reference r leatha was not used to int erpret this result as normal/abnormal . [facility] [place]neUritqnzHOEHZIRXYU7076-69-67 06:52:00 Test Item Value Reference Range Interpretation Comments Monocytes # (test code 0.6 See_Comment N [Aut omated message] The = Monocytes #) system which generated this result tra nsmitted reference range : <=0.8. The reference r leatha was not used to int erpret this result as normal/abnormal . [facility] [place]neVszkiaiPSYNRCXLEU6906-01-57 06:52:00 Test Item Value Reference Range Interpretation Comments Lymphocytes # (test code = Lymphocytes 0.9 1.0-5.5 L #) [facility] [place]neZicdcjzRQMJHIISTY7158-04-19 06:52:00 Test Item Value Reference Range Interpretation Comments Lymphocytes (test code = Lymphocytes) 9.5 20.0-40.0 L [facility] [place]neYeaovjtQGAVIPYVLN2677-82-28 06:52:00 Test Item Value Reference Range Interpretation Comments Segs (test code = Segs) 84.1 45.0-75.0 H [facility] [place]neQymwbkkEDURCVQGXH5850-77-12 06:52:00 Test Item Value Reference Range Interpretation Comments Monocytes (test code = Monocytes) 6.0 2.0-12.0 N [facility] [place]neZgscaheDFTMKIHRYF5000-00-66 06:52:00 Test Item Value Reference Range Interpretation Comments Eosinophils (test code = 0.1 See_Comment N [A utomated message] The Eosinophils) system which ge nerated this result tra nsmitted reference range : <=4.0. The reference r leatha was not used to int erpret this result as normal/abnormal . [facility] KlebergWtohysgRPITQNNZU1278-50-21 06:52:00 Test Item Value Reference Range Interpretation Comments Phosphorus (test code = Phosphorus) 3.5 2.5-4.5 N [facility] KlebergSprmoyyGHGZRQKIF8526-13-26 06:52:00 Test Item Value Reference Range Interpretation Comments AGAP (test code = AGAP) 13.4 10.0-20.0 N [facility] KlebergTgwcymwVGDLCBJGT1615-79-33 06:52:00 Test Item Value Reference Range Interpretation Comments Glucose Lvl (test code = Glucose Lvl) 181 70-99 H [facility] KlebergIpfnxgjYHKRPELSF2386-26-61 06:52:00 Test Item Value Reference Range Interpretation Comments Creatinine Lvl (test code = Creatinine 0.9 0.5-1.4 N Lvl) [facility] KlebergSxamabjVHDZHQELD3609-30-28 06:52:00 Test Item Value Reference Range Interpretation Comments BUN (test code = BUN) 17 7-22 N [facility] KlebergNzdakxtGLGHIKJQD6570-76-66 06:52:00 Test Item Value Reference Range Interpretation Comments Sodium Lvl (test code = Sodium Lvl) 140 135-145 N [facility] KlebergDvuivupBCLDUQVHW1076-83-98 06:52:00 Test Item Value Reference Range Interpretation Comments Chloride Lvl (test code = Chloride Lvl) 105 95-109 N [facility] KlebergJnturtyAJFHEEZUE9426-37-57 06:52:00 Test Item Value Reference Range Interpretation Comments Calcium Lvl (test code = Calcium Lvl) 9.7 8.5-10.5 N [facility] [place]bergQluqevtXGXJLIYPJ7122-86-31 06:52:00 Test Item Value Reference Range Interpretation Comments Potassium Lvl (test code = Potassium 4.4 3.5-5.1 N Lvl) [facility]bergJaueqfsJIZGQZSBX4520-70-93 06:52:00 Test Item Value Reference Range Interpretation Comments CO2 (test code = CO2) 26 24-32 N [facility] [place]bergTuaebqmVJPNUJZOQ8583-22-75 06:52:00 Test Item Value Reference Range Interpretation Comments eGFR (test code = eGFR) 65 [facility] KlebergLnorykjWSFLPBVAV6506-26-90 06:52:00 Test Item Value Reference Range Interpretation Comments Magnesium Lvl (test code = Magnesium 1.5 1.8-2.4 L Lvl) [facility] [place]nePzezzbrJELALGCOUC7436-37-28 06:52:00 Test Item Value Reference Range Interpretation Comments RBC (test code = RBC) 4.85 4.20-5.40 N [facility] [place]neKyngphtLWVNZSRWXM9166-14-22 06:52:00 Test Item Value Reference Range Interpretation Comments WBC (test code = WBC) 9.2 3.7-10.4 N [facility] [place]neFkdhdhqOEEHTXPFOR1913-58-98 06:52:00 Test Item Value Reference Range Interpretation Comments Hgb (test code = Hgb) 14.9 12.0-16.0 N [facility] [place]neZyefrusLLUOURZQNJ7014-00-06 06:52:00 Test Item Value Reference Range Interpretation Comments MCHC (test code = MCHC) 33.3 32.0-36.0 N [facility] [place]neYwkpgwvLAHPJGQPXI1674-91-30 06:52:00 Test Item Value Reference Range Interpretation Comments MCH (test code = MCH) 30.7 pg 27.0-31.0 N [facility] [place]nePrcmsqqWPTFZKZCPF6965-33-30 06:52:00 Test Item Value Reference Range Interpretation Comments Hct (test code = Hct) 44.9 36.0-48.0 N [facility] [place]neRyobyfeQSHWSWVMIB7543-24-35 06:52:00 Test Item Value Reference Range Interpretation Comments MCV (test code = MCV) 92.4 81.0-99.0 N [facility] [place]neGaorfnsDUQQXOXPAV2277-10-34 06:52:00 Test Item Value Reference Range Interpretation Comments RDW (test code = RDW) 14.5 11.5-14.5 N [facility] [place]neWgzezdkXGSUVUOAGC2919-48-69 06:52:00 Test Item Value Reference Range Interpretation Comments Platelet (test code = Platelet) 213 133-450 N [facility] [place]neIxqkavdTUIPCKOAMS6734-85-23 06:52:00 Test Item Value Reference Range Interpretation Comments MPV (test code = MPV) 9.5 7.4-10.4 N [facility] [place]neHuzupagVZLOMVVZYS8819-79-77 06:52:00 Test Item Value Reference Range Interpretation Comments Segs-Bands # (test code = Segs-Bands #) 7.7 1.5-8.1 N [facility] [place]neOdhgnhdAVKWZJMEST8984-92-77 06:52:00 Test Item Value Reference Range Interpretation Comments Basophils (test code = 0.3 See_Comment N [Aut omated message] The Basophils) system which ge nerated this result tra nsmitted reference range : <=1.0. The reference r leatha was not used to int erpret this result as normal/abnormal . [facility] [place]neYyxeumsEFIWVHPDQN9297-08-42 06:52:00 Test Item Value Reference Range Interpretation Comments Monocytes # (test code 0.6 See_Comment N [Aut omated message] The = Monocytes #) system which generated this result tra nsmitted reference range : <=0.8. The reference r leatha was not used to int erpret this result as normal/abnormal . [facility] [place]neFixkwsbGNGSSIDGKD3124-13-18 06:52:00 Test Item Value Reference Range Interpretation Comments Lymphocytes # (test code = Lymphocytes 0.9 1.0-5.5 L #) [facility] [place]neZmkzyniXPBIQHCHHZ8896-55-41 06:52:00 Test Item Value Reference Range Interpretation Comments Lymphocytes (test code = Lymphocytes) 9.5 20.0-40.0 L [facility] [place]neUydyvloTQEYGFKRVD4301-49-13 06:52:00 Test Item Value Reference Range Interpretation Comments Segs (test code = Segs) 84.1 45.0-75.0 H [facility] [place]neZhvdslmVPDGTNJHHG5845-71-96 06:52:00 Test Item Value Reference Range Interpretation Comments Monocytes (test code = Monocytes) 6.0 2.0-12.0 N [facility] [place]neFknwqtkSBLSIMRBDY0855-97-22 06:52:00 Test Item Value Reference Range Interpretation Comments Eosinophils (test code = 0.1 See_Comment N [A utomated message] The Eosinophils) system which ge nerated this result tra nsmitted reference range : <=4.0. The reference r leatha was not used to int erpret this result as normal/abnormal . [facility] KlebergMfbyjhwANTQZUCNA6029-48-31 06:52:00 Test Item Value Reference Range Interpretation Comments Phosphorus (test code = Phosphorus) 3.5 2.5-4.5 N [facility] KlebergZtkrntwVVLWPEXPZ4403-56-62 06:52:00 Test Item Value Reference Range Interpretation Comments AGAP (test code = AGAP) 13.4 10.0-20.0 N [facility] KlebergTbumfpoZNIKIVMKL2562-51-85 06:52:00 Test Item Value Reference Range Interpretation Comments Glucose Lvl (test code = Glucose Lvl) 181 70-99 H [facility] KlebergCacgbtfTXAWFRRUJ3089-70-33 06:52:00 Test Item Value Reference Range Interpretation Comments Creatinine Lvl (test code = Creatinine 0.9 0.5-1.4 N Lvl) [facility]bergEmuzcriEITXFIDMF3557-55-63 06:52:00 Test Item Value Reference Range Interpretation Comments BUN (test code = BUN) 17 7-22 N [facility] KlebergXekmbwiNBYJXSCBT2413-95-77 06:52:00 Test Item Value Reference Range Interpretation Comments Sodium Lvl (test code = Sodium Lvl) 140 135-145 N [facility] KlebergOrazylaARMSTTELB7315-77-73 06:52:00 Test Item Value Reference Range Interpretation Comments Chloride Lvl (test code = Chloride Lvl) 105 95-109 N [facility] KlebergNgkztcoYIPXDRBYP5146-81-68 06:52:00 Test Item Value Reference Range Interpretation Comments Calcium Lvl (test code = Calcium Lvl) 9.7 8.5-10.5 N [facility]bergPnyiqvbBDNKHCZTH5710-30-74 06:52:00 Test Item Value Reference Range Interpretation Comments Potassium Lvl (test code = Potassium 4.4 3.5-5.1 N Lvl) [facility]bergNjadqmhIJMIVPOEC0584-32-44 06:52:00 Test Item Value Reference Range Interpretation Comments CO2 (test code = CO2) 26 24-32 N [facility] KlebergAxcyfizIHEIXWUUL4128-06-14 06:52:00 Test Item Value Reference Range Interpretation Comments eGFR (test code = eGFR) 65 [facility] KlebergEhlhufcXLJXKEBXN7089-62-16 06:52:00 Test Item Value Reference Range Interpretation Comments Magnesium Lvl (test code = Magnesium 1.5 1.8-2.4 L Lvl) [facility] [place]neVxtbxssNSXFEKEKZY2723-45-26 06:52:00 Test Item Value Reference Range Interpretation Comments RBC (test code = RBC) 4.85 4.20-5.40 N [facility] [place]neWmmnlmnPYWULZPFDX5377-86-31 06:52:00 Test Item Value Reference Range Interpretation Comments WBC (test code = WBC) 9.2 3.7-10.4 N [facility] [place]neQfdhnwpVZXIMIRKTM3478-66-90 06:52:00 Test Item Value Reference Range Interpretation Comments Hgb (test code = Hgb) 14.9 12.0-16.0 N [facility] [place]neBkgsqhyKLVDTMCXND8879-87-84 06:52:00 Test Item Value Reference Range Interpretation Comments MCHC (test code = MCHC) 33.3 32.0-36.0 N [facility] [place]neMxkqepsRQZFYSSCIG3492-64-80 06:52:00 Test Item Value Reference Range Interpretation Comments MCH (test code = MCH) 30.7 pg 27.0-31.0 N [facility] [place]neNpvbbtkBTBCSWFOZZ0860-98-10 06:52:00 Test Item Value Reference Range Interpretation Comments Hct (test code = Hct) 44.9 36.0-48.0 N [facility] Cle[place]neDuzzyhbMATPCUEXIB3647-74-67 06:52:00 Test Item Value Reference Range Interpretation Comments MCV (test code = MCV) 92.4 81.0-99.0 N [facility] Cle[place]neBjxuwwoYKTVUEIVMC8025-27-46 06:52:00 Test Item Value Reference Range Interpretation Comments RDW (test code = RDW) 14.5 11.5-14.5 N [facility] [place]neQcvccygABRSSSUBHK0262-54-99 06:52:00 Test Item Value Reference Range Interpretation Comments Platelet (test code = Platelet) 213 133-450 N [facility] Cle[place]neZviwzajYEYAZRLYCD4855-92-06 06:52:00 Test Item Value Reference Range Interpretation Comments MPV (test code = MPV) 9.5 7.4-10.4 N [facility] [place]neOsbfihzJOKJWFJPMZ0102-46-99 06:52:00 Test Item Value Reference Range Interpretation Comments Segs-Bands # (test code = Segs-Bands #) 7.7 1.5-8.1 N [facility] [place]neTcbzpngIPVKAERJBV0584-13-83 06:52:00 Test Item Value Reference Range Interpretation Comments Basophils (test code = 0.3 See_Comment N [Aut omated message] The Basophils) system which ge nerated this result tra nsmitted reference range : <=1.0. The reference r leatha was not used to int erpret this result as normal/abnormal . [facility] [place]neIclrhhgYICXRZXVEC5318-12-70 06:52:00 Test Item Value Reference Range Interpretation Comments Monocytes # (test code 0.6 See_Comment N [Aut omated message] The = Monocytes #) system which generated this result tra nsmitted reference range : <=0.8. The reference r leatha was not used to int erpret this result as normal/abnormal . [facility] [place]neVviymrlCMCZJVCFRL6879-66-54 06:52:00 Test Item Value Reference Range Interpretation Comments Lymphocytes # (test code = Lymphocytes 0.9 1.0-5.5 L #) [facility] [place]neOcedthqSZJYYGDADD4910-13-95 06:52:00 Test Item Value Reference Range Interpretation Comments Lymphocytes (test code = Lymphocytes) 9.5 20.0-40.0 L [facility] [place]neOejntdaHCJHXPKSPL4749-88-25 06:52:00 Test Item Value Reference Range Interpretation Comments Segs (test code = Segs) 84.1 45.0-75.0 H [facility] [place]neHzuabihTAAOBQVLIY9055-36-13 06:52:00 Test Item Value Reference Range Interpretation Comments Monocytes (test code = Monocytes) 6.0 2.0-12.0 N [facility] [place]neNpflrelKLIYKIORJX1487-91-11 06:52:00 Test Item Value Reference Range Interpretation Comments Eosinophils (test code = 0.1 See_Comment N [A utomated message] The Eosinophils) system which ge nerated this result tra nsmitted reference range : <=4.0. The reference r leatha was not used to int erpret this result as normal/abnormal . [facility] KlebergYkddflcJCHSXXEEB1812-42-95 19:08:00 Test Item Value Reference Range Interpretation Comments POC A Glu (test code = POC A Glu) 152 70-99 H [facility] KlebergYenrcoiRWANAXLXC8089-10-77 19:08:00 Test Item Value Reference Range Interpretation Comments POC A LA (test code = POC A LA) 0.7 0.5-2.2 N [facility] KlebergKnysulkUWXXNDUGZ6826-11-84 19:08:00 Test Item Value Reference Range Interpretation Comments POC A HCO3 (test code = POC A HCO3) 24 22-26 N [facility] KlebergCqwoevhOEWDWODRL5768-47-69 19:08:00 Test Item Value Reference Range Interpretation Comments POC A BE (test code = -1 See_Comment N [Auto mated message] The POC A BE) system which ge nerated this result transmit juan reference range : <=2. The reference range was not used to interpr et this result as lashonda l/abnormal. [facility] KlebergKxzurvsDJXIFMLNE7480-13-02 19:08:00 Test Item Value Reference Range Interpretation Comments POC A Hct (test code = POC A Hct) 35.0 36.0-48.0 L [facility]bergEvbswbwLMAXEJRFF8863-64-30 19:08:00 Test Item Value Reference Range Interpretation Comments POC A O2 Sat (test code = POC A O2 Sat) 96.0 95.0-100.0 N [facility] KlebergXkrvwnfJDSTXIWOB1766-53-95 19:08:00 Test Item Value Reference Range Interpretation Comments POC A K (test code = POC A K) 3.4 3.5-5.1 L [facility] KlebergQtczpizRZAJXTYIL6232-61-36 19:08:00 Test Item Value Reference Range Interpretation Comments POC A Na (test code = POC A Na) 138 135-145 N [facility] KlebergZeanfcnWLGXPVAME8555-92-78 19:08:00 Test Item Value Reference Range Interpretation Comments POC A PCO2 (test code = POC A PCO2) 40 35-45 N [facility]bergEvxwgooSUPZOQVDK3954-26-14 19:08:00 Test Item Value Reference Range Interpretation Comments POC A Ca Ion (test code = POC A Ca Ion) 1.26 1.16-1.30 N [facility] KlebergAuppeiyLPBPCEWSR5828-05-67 19:08:00 Test Item Value Reference Range Interpretation Comments POC A Source (test code = POC A Source) ART [facility] KlebergZsjnbcdAINXRHEAT4678-72-60 19:08:00 Test Item Value Reference Range Interpretation Comments POC A Temp (test code = POC A Temp) 37.0 [facility] KlebergSteuugpQKOJLZLES5315-44-76 19:08:00 Test Item Value Reference Range Interpretation Comments POC A PO2 (test code = POC A PO2) 85 80-100 N [facility] KlebergBtqnsfzPICPSEGNH9651-89-53 19:08:00 Test Item Value Reference Range Interpretation Comments POC A pH (test code = POC A pH) 7.39 7.35-7.45 N [facility] KlebergOdtmdivIGIHKLNFC1258-69-38 19:08:00 Test Item Value Reference Range Interpretation Comments POC A Glu (test code = POC A Glu) 152 70-99 H [facility] KlebergGwieetkEGEEHUJPU2680-59-30 19:08:00 Test Item Value Reference Range Interpretation Comments POC A LA (test code = POC A LA) 0.7 0.5-2.2 N [facility] KlebergRrbuduhIUZCTQVCJ0648-16-76 19:08:00 Test Item Value Reference Range Interpretation Comments POC A HCO3 (test code = POC A HCO3) 24 22-26 N [facility] KlebergUipasizISVDGPEOI8609-89-05 19:08:00 Test Item Value Reference Range Interpretation Comments POC A BE (test code = -1 See_Comment N [Auto mated message] The POC A BE) system which ge nerated this result transmit juan reference range : <=2. The reference range was not used to interpr et this result as lashonda l/abnormal. [facility] KlebergBufcwnuLAYJSBBSL5713-96-26 19:08:00 Test Item Value Reference Range Interpretation Comments POC A Hct (test code = POC A Hct) 35.0 36.0-48.0 L [facility] KlebergNexcejsDANFEPAEM1997-31-45 19:08:00 Test Item Value Reference Range Interpretation Comments POC A O2 Sat (test code = POC A O2 Sat) 96.0 95.0-100.0 N [facility] KlebergUpbvqynHZEUWOITL1309-90-18 19:08:00 Test Item Value Reference Range Interpretation Comments POC A K (test code = POC A K) 3.4 3.5-5.1 L [facility] KlebergXtobieiBKQWZJAGK8314-71-03 19:08:00 Test Item Value Reference Range Interpretation Comments POC A Na (test code = POC A Na) 138 135-145 N [facility] KlebergDtfpxgpLODWEPTFP8856-33-25 19:08:00 Test Item Value Reference Range Interpretation Comments POC A PCO2 (test code = POC A PCO2) 40 35-45 N [facility] KlebergRmsmdhmOKQDRIHUS8467-69-04 19:08:00 Test Item Value Reference Range Interpretation Comments POC A Ca Ion (test code = POC A Ca Ion) 1.26 1.16-1.30 N [facility] KlebergKipzwrlKBIYZTCYO9316-11-62 19:08:00 Test Item Value Reference Range Interpretation Comments POC A Source (test code = POC A Source) ART [facility] KlebergRvncdsuRGEUXRINO1682-97-09 19:08:00 Test Item Value Reference Range Interpretation Comments POC A Temp (test code = POC A Temp) 37.0 [facility] KlebergEjfsuacDACDDCCLU8436-21-89 19:08:00 Test Item Value Reference Range Interpretation Comments POC A PO2 (test code = POC A PO2) 85 80-100 N [facility] KlebergBuszdkwWFUKJNZDW2663-17-98 19:08:00 Test Item Value Reference Range Interpretation Comments POC A pH (test code = POC A pH) 7.39 7.35-7.45 N [facility] KlebergFuzzphcFNZFAZDXZ3729-92-92 19:08:00 Test Item Value Reference Range Interpretation Comments POC A Glu (test code = POC A Glu) 152 70-99 H [facility]bergLclyezlEOATBQRBV5486-35-04 19:08:00 Test Item Value Reference Range Interpretation Comments POC A LA (test code = POC A LA) 0.7 0.5-2.2 N [facility]bergJbrwupmDDASCOADH1597-17-19 19:08:00 Test Item Value Reference Range Interpretation Comments POC A HCO3 (test code = POC A HCO3) 24 22-26 N [facility]bergVdrvkkaRKFYKEIGK9105-21-56 19:08:00 Test Item Value Reference Range Interpretation Comments POC A BE (test code = -1 See_Comment N [Auto mated message] The POC A BE) system which ge nerated this result transmit juan reference range : <=2. The reference range was not used to interpr et this result as lashonda l/abnormal. [facility]bergIomuastFMBNLLISO5781-36-79 19:08:00 Test Item Value Reference Range Interpretation Comments POC A Hct (test code = POC A Hct) 35.0 36.0-48.0 L [facility] KlebergBmgcchkGMRSXMICX9469-65-01 19:08:00 Test Item Value Reference Range Interpretation Comments POC A O2 Sat (test code = POC A O2 Sat) 96.0 95.0-100.0 N [facility]bergYacujvtEKNTGNYDT4076-23-15 19:08:00 Test Item Value Reference Range Interpretation Comments POC A K (test code = POC A K) 3.4 3.5-5.1 L [facility]bergEtltyhpWCKDRKYUI4785-24-83 19:08:00 Test Item Value Reference Range Interpretation Comments POC A Na (test code = POC A Na) 138 135-145 N [facility]bergAtgqexdOFHFZCTJY5535-06-19 19:08:00 Test Item Value Reference Range Interpretation Comments POC A PCO2 (test code = POC A PCO2) 40 35-45 N [facility]bergRehmyhnUNDUHAGXY3317-77-85 19:08:00 Test Item Value Reference Range Interpretation Comments POC A Ca Ion (test code = POC A Ca Ion) 1.26 1.16-1.30 N [facility]bergWxkijmrTSBREOAYL0424-24-72 19:08:00 Test Item Value Reference Range Interpretation Comments POC A Source (test code = POC A Source) ART [facility]bergHhgybxsYHLLRKOSU5579-20-07 19:08:00 Test Item Value Reference Range Interpretation Comments POC A Temp (test code = POC A Temp) 37.0 [facility]bergNmnshfsHKMCXPKTW0583-16-26 19:08:00 Test Item Value Reference Range Interpretation Comments POC A PO2 (test code = POC A PO2) 85 80-100 N [facility]bergMclcbukHUSDGWNQL4099-86-17 19:08:00 Test Item Value Reference Range Interpretation Comments POC A pH (test code = POC A pH) 7.39 7.35-7.45 N [facility]bergPrmrsikQZQHIJZMI3833-20-41 19:08:00 Test Item Value Reference Range Interpretation Comments POC A Glu (test code = POC A Glu) 152 70-99 H [facility]bergHqczqajRAEBVMCQT9833-46-97 19:08:00 Test Item Value Reference Range Interpretation Comments POC A LA (test code = POC A LA) 0.7 0.5-2.2 N [facility]bergLusdyrtBMDESWSSA7771-20-07 19:08:00 Test Item Value Reference Range Interpretation Comments POC A HCO3 (test code = POC A HCO3) 24 22-26 N [facility]bergHtuuyipVULCIBAWL1990-50-47 19:08:00 Test Item Value Reference Range Interpretation Comments POC A BE (test code = -1 See_Comment N [Auto mated message] The POC A BE) system which ge nerated this result transmit juan reference range : <=2. The reference range was not used to interpr et this result as lashonda l/abnormal. [facility]bergUssiyzeACHOPRFXQ4941-66-99 19:08:00 Test Item Value Reference Range Interpretation Comments POC A Hct (test code = POC A Hct) 35.0 36.0-48.0 L [facility]bergVglmiakGNHWTIDUX2994-40-81 19:08:00 Test Item Value Reference Range Interpretation Comments POC A O2 Sat (test code = POC A O2 Sat) 96.0 95.0-100.0 N [facility]bergVxevuzhHFWOBECYY7223-36-81 19:08:00 Test Item Value Reference Range Interpretation Comments POC A K (test code = POC A K) 3.4 3.5-5.1 L [facility]bergQjlnrgzMFXHBFWCY2620-93-36 19:08:00 Test Item Value Reference Range Interpretation Comments POC A Na (test code = POC A Na) 138 135-145 N [facility]bergEtzetzcQQXOGIWTB0890-67-25 19:08:00 Test Item Value Reference Range Interpretation Comments POC A PCO2 (test code = POC A PCO2) 40 35-45 N [facility]bergQidwenoKKJFILCVH3473-10-24 19:08:00 Test Item Value Reference Range Interpretation Comments POC A Ca Ion (test code = POC A Ca Ion) 1.26 1.16-1.30 N [facility] KlebergRrbilziSHLAVMSUG3928-22-71 19:08:00 Test Item Value Reference Range Interpretation Comments POC A Source (test code = POC A Source) ART [facility]bergEhwvtkwPTKIGITIF2881-76-62 19:08:00 Test Item Value Reference Range Interpretation Comments POC A Temp (test code = POC A Temp) 37.0 [facility]bergKnxzbkmLDFXNYDYA6569-21-24 19:08:00 Test Item Value Reference Range Interpretation Comments POC A PO2 (test code = POC A PO2) 85 80-100 N [facility]bergJsxknliKLERPOSBV4232-82-96 19:08:00 Test Item Value Reference Range Interpretation Comments POC A pH (test code = POC A pH) 7.39 7.35-7.45 N [facility]bergEpmrsfvYPPQIYGEI9233-89-89 19:08:00 Test Item Value Reference Range Interpretation Comments POC A Glu (test code = POC A Glu) 152 70-99 H [facility]bergFllwsvqNZAVGGAJM0551-66-51 19:08:00 Test Item Value Reference Range Interpretation Comments POC A LA (test code = POC A LA) 0.7 0.5-2.2 N [facility]bergTyldmuyBQXDHYLLQ9376-93-05 19:08:00 Test Item Value Reference Range Interpretation Comments POC A HCO3 (test code = POC A HCO3) 24 22-26 N [facility]bergHoginmkIOQMLRLSG3414-17-96 19:08:00 Test Item Value Reference Range Interpretation Comments POC A BE (test code = -1 See_Comment N [Auto mated message] The POC A BE) system which ge nerated this result transmit juan reference range : <=2. The reference range was not used to interpr et this result as lashonda l/abnormal. [facility]bergUdqhkavYQBJXSYAX1183-30-70 19:08:00 Test Item Value Reference Range Interpretation Comments POC A Hct (test code = POC A Hct) 35.0 36.0-48.0 L [facility]bergLexrguqCFGUAESTP0391-44-21 19:08:00 Test Item Value Reference Range Interpretation Comments POC A O2 Sat (test code = POC A O2 Sat) 96.0 95.0-100.0 N [facility]bergJqremnnEVTXFJQFA6944-97-82 19:08:00 Test Item Value Reference Range Interpretation Comments POC A K (test code = POC A K) 3.4 3.5-5.1 L [facility]bergVtcncmuXSJFFGJWU7978-95-76 19:08:00 Test Item Value Reference Range Interpretation Comments POC A Na (test code = POC A Na) 138 135-145 N [facility]bergXzuplphFXTYNXQSR5541-17-29 19:08:00 Test Item Value Reference Range Interpretation Comments POC A PCO2 (test code = POC A PCO2) 40 35-45 N [facility]bergUpombtzRCVPGZBWA1881-67-33 19:08:00 Test Item Value Reference Range Interpretation Comments POC A Ca Ion (test code = POC A Ca Ion) 1.26 1.16-1.30 N [facility]bergFexbvpeTJOMJSJYI7122-03-45 19:08:00 Test Item Value Reference Range Interpretation Comments POC A Source (test code = POC A Source) ART [facility]bergYzbgbjuKTKFHXFEM7189-58-37 19:08:00 Test Item Value Reference Range Interpretation Comments POC A Temp (test code = POC A Temp) 37.0 [facility]bergPztkkklBIFJTAQKV7789-17-15 19:08:00 Test Item Value Reference Range Interpretation Comments POC A PO2 (test code = POC A PO2) 85 80-100 N [facility]bergNgiltqmUMVKAWNQX4452-21-15 19:08:00 Test Item Value Reference Range Interpretation Comments POC A pH (test code = POC A pH) 7.39 7.35-7.45 N [facility] KlebergOioaugiBIVULIBKQ4842-02-26 19:08:00 Test Item Value Reference Range Interpretation Comments POC A Glu (test code = POC A Glu) 152 70-99 H [facility]bergLftgkxdLKXQQPFTB6536-42-34 19:08:00 Test Item Value Reference Range Interpretation Comments POC A LA (test code = POC A LA) 0.7 0.5-2.2 N [facility]bergHvwnilvJAOPRUCBE4791-42-43 19:08:00 Test Item Value Reference Range Interpretation Comments POC A HCO3 (test code = POC A HCO3) 24 22-26 N [facility]bergWdxosbfTZLQYOATA6003-43-76 19:08:00 Test Item Value Reference Range Interpretation Comments POC A BE (test code = -1 See_Comment N [Auto mated message] The POC A BE) system which ge nerated this result transmit juan reference range : <=2. The reference range was not used to interpr et this result as lashonda l/abnormal. [facility]bergEbtsauyOJEBJAIWB7093-95-74 19:08:00 Test Item Value Reference Range Interpretation Comments POC A Hct (test code = POC A Hct) 35.0 36.0-48.0 L [facility]bergCevsgjrZWEMJCPMU4049-87-80 19:08:00 Test Item Value Reference Range Interpretation Comments POC A O2 Sat (test code = POC A O2 Sat) 96.0 95.0-100.0 N [facility]bergElbzzgqZJZJHFJAO6598-36-89 19:08:00 Test Item Value Reference Range Interpretation Comments POC A K (test code = POC A K) 3.4 3.5-5.1 L [facility]bergEpssucqQYZSLBXSR6199-21-58 19:08:00 Test Item Value Reference Range Interpretation Comments POC A Na (test code = POC A Na) 138 135-145 N [facility]bergEtofvstMPLGWOTMP9347-64-12 19:08:00 Test Item Value Reference Range Interpretation Comments POC A PCO2 (test code = POC A PCO2) 40 35-45 N [facility] KlebergGvtovvrQMYCVZEVN1626-23-08 19:08:00 Test Item Value Reference Range Interpretation Comments POC A Ca Ion (test code = POC A Ca Ion) 1.26 1.16-1.30 N [facility]bergPluykiuFXZIKJPII6312-82-11 19:08:00 Test Item Value Reference Range Interpretation Comments POC A Source (test code = POC A Source) ART [facility]bergVwunzgoDQNCIEPIW0985-78-49 19:08:00 Test Item Value Reference Range Interpretation Comments POC A Temp (test code = POC A Temp) 37.0 [facility]bergWkyqhpoTJYLRJEDP2236-87-96 19:08:00 Test Item Value Reference Range Interpretation Comments POC A PO2 (test code = POC A PO2) 85 80-100 N [facility]bergArgttttJVKAWURTR2751-44-88 19:08:00 Test Item Value Reference Range Interpretation Comments POC A pH (test code = POC A pH) 7.39 7.35-7.45 N [facility]bergRzsakrbMLVMRZLUY5677-11-46 17:27:00 Test Item Value Reference Range Interpretation Comments POC A PCO2 (test code = POC A PCO2) 44 35-45 N [facility]bergBnfrprgHPMQUIZAZ7790-51-41 17:27:00 Test Item Value Reference Range Interpretation Comments POC A BE (test code = 1 See_Comment N [Auto mated message] The POC A BE) system which ge nerated this result transmit juan reference range : <=2. The reference range was not used to interpr et this result as lashonda l/abnormal. [facility]bergNkedwgeORGUZUULP8764-13-91 17:27:00 Test Item Value Reference Range Interpretation Comments POC A HCO3 (test code = POC A HCO3) 26 22-26 N [facility]bergFjglghcDMVSOKCVV1953-71-61 17:27:00 Test Item Value Reference Range Interpretation Comments POC A PO2 (test code = POC A PO2) 161 80-100 H [facility]bergZjcqilhVNMDVOIFS7921-52-37 17:27:00 Test Item Value Reference Range Interpretation Comments POC A Na (test code = POC A Na) 137 135-145 N [facility] KlebergDgslifvKYUELYYYP1966-56-63 17:27:00 Test Item Value Reference Range Interpretation Comments POC A Ca Ion (test code = POC A Ca Ion) 1.29 1.16-1.30 N [facility]bergCvdcbpcQJEWVQQBU7051-67-59 17:27:00 Test Item Value Reference Range Interpretation Comments POC A O2 Sat (test code = POC A O2 Sat) 99.0 95.0-100.0 N [facility]bergGkabxkyHWANZVPLT2263-84-33 17:27:00 Test Item Value Reference Range Interpretation Comments POC A K (test code = POC A K) 3.9 3.5-5.1 N [facility]bergHrbwhspNJWLGZXCD1278-94-12 17:27:00 Test Item Value Reference Range Interpretation Comments POC A Hct (test code = POC A Hct) 38.0 36.0-48.0 N [facility]bergMvkxqlqQXSFAWMKU6868-63-52 17:27:00 Test Item Value Reference Range Interpretation Comments POC A Source (test code = POC A Source) ART [facility]bergKvhknprOIXACJFRR9502-10-85 17:27:00 Test Item Value Reference Range Interpretation Comments POC A pH (test code = POC A pH) 7.38 7.35-7.45 N [facility]bergEdqvknqJXZBNDFOC8431-37-84 17:27:00 Test Item Value Reference Range Interpretation Comments POC A Temp (test code = POC A Temp) 37.0 [facility]bergTcczltzCJOMHPCBH8834-23-80 17:27:00 Test Item Value Reference Range Interpretation Comments POC A Glu (test code = POC A Glu) 150 70-99 H [facility] KlebergUfyupqvFTYNIDPKA2082-24-16 17:27:00 Test Item Value Reference Range Interpretation Comments POC A LA (test code = POC A LA) 1.1 0.5-2.2 N [facility]bergEwrpsuaFQWFTLCVL8099-25-86 17:27:00 Test Item Value Reference Range Interpretation Comments POC A PCO2 (test code = POC A PCO2) 44 35-45 N [facility]bergMctsfuwVKDVFSACN2702-41-50 17:27:00 Test Item Value Reference Range Interpretation Comments POC A BE (test code = 1 See_Comment N [Auto mated message] The POC A BE) system which ge nerated this result transmit juan reference range : <=2. The reference range was not used to interpr et this result as lashonda l/abnormal. [facility]bergVuaxxkaGQQCBWSQN6760-48-67 17:27:00 Test Item Value Reference Range Interpretation Comments POC A HCO3 (test code = POC A HCO3) 26 22-26 N [facility]bergRfxzfirWMRYPPBCX9106-98-91 17:27:00 Test Item Value Reference Range Interpretation Comments POC A PO2 (test code = POC A PO2) 161 80-100 H [facility]bergBekjwhwPXYXDIPCR8781-17-93 17:27:00 Test Item Value Reference Range Interpretation Comments POC A Na (test code = POC A Na) 137 135-145 N [facility]bergRgdhjxrTSUAKNDDI6804-18-42 17:27:00 Test Item Value Reference Range Interpretation Comments POC A Ca Ion (test code = POC A Ca Ion) 1.29 1.16-1.30 N [facility] KlebergZdubwvtZVOTETJUU1391-65-75 17:27:00 Test Item Value Reference Range Interpretation Comments POC A O2 Sat (test code = POC A O2 Sat) 99.0 95.0-100.0 N [facility]bergGdyilwjQGUJREQHW9611-95-55 17:27:00 Test Item Value Reference Range Interpretation Comments POC A K (test code = POC A K) 3.9 3.5-5.1 N [facility]bergPgdjyrfBORZSRRZQ3078-68-96 17:27:00 Test Item Value Reference Range Interpretation Comments POC A Hct (test code = POC A Hct) 38.0 36.0-48.0 N [facility]bergMzdmijfNVRFJOYEU5082-32-74 17:27:00 Test Item Value Reference Range Interpretation Comments POC A Source (test code = POC A Source) ART [facility]bergClnwhafFHVNSOSNZ5203-55-12 17:27:00 Test Item Value Reference Range Interpretation Comments POC A pH (test code = POC A pH) 7.38 7.35-7.45 N [facility]bergJywsciaFLOHLTJAP5246-55-52 17:27:00 Test Item Value Reference Range Interpretation Comments POC A Temp (test code = POC A Temp) 37.0 [facility]bergBgdwxjrKATENKAVH2650-71-18 17:27:00 Test Item Value Reference Range Interpretation Comments POC A Glu (test code = POC A Glu) 150 70-99 H [facility]bergJkltsgnPXXYCUUDR0212-70-88 17:27:00 Test Item Value Reference Range Interpretation Comments POC A LA (test code = POC A LA) 1.1 0.5-2.2 N [facility]bergJubufgfWMBCCQKVH8344-25-31 17:27:00 Test Item Value Reference Range Interpretation Comments POC A PCO2 (test code = POC A PCO2) 44 35-45 N [facility]bergLavhscfLTUXSXZQB1460-97-65 17:27:00 Test Item Value Reference Range Interpretation Comments POC A BE (test code = 1 See_Comment N [Auto mated message] The POC A BE) system which ge nerated this result transmit juan reference range : <=2. The reference range was not used to interpr et this result as lashonda l/abnormal. [facility]bergQrxyaynCWEEQPRKE4499-63-18 17:27:00 Test Item Value Reference Range Interpretation Comments POC A HCO3 (test code = POC A HCO3) 26 22-26 N [facility]bergYlxwoueRSNRHRYCI8275-18-80 17:27:00 Test Item Value Reference Range Interpretation Comments POC A PO2 (test code = POC A PO2) 161 80-100 H [facility]bergUrvbzhsFHWSPOWIS9494-68-73 17:27:00 Test Item Value Reference Range Interpretation Comments POC A Na (test code = POC A Na) 137 135-145 N [facility] KlebergIquvevbAJXGUGYGM1836-82-88 17:27:00 Test Item Value Reference Range Interpretation Comments POC A Ca Ion (test code = POC A Ca Ion) 1.29 1.16-1.30 N [facility]bergOjwsackFXGZHTNEE6171-65-55 17:27:00 Test Item Value Reference Range Interpretation Comments POC A O2 Sat (test code = POC A O2 Sat) 99.0 95.0-100.0 N [facility]bergSrcmxrrGBLIQNNMQ9775-07-60 17:27:00 Test Item Value Reference Range Interpretation Comments POC A K (test code = POC A K) 3.9 3.5-5.1 N [facility]bergNlmdttdPOXJAKMGF6825-52-37 17:27:00 Test Item Value Reference Range Interpretation Comments POC A Hct (test code = POC A Hct) 38.0 36.0-48.0 N [facility]bergDjsuhfyHPTKNCUOA2640-83-21 17:27:00 Test Item Value Reference Range Interpretation Comments POC A Source (test code = POC A Source) ART [facility]bergXfgjlnoRFSYVKEBI8462-25-88 17:27:00 Test Item Value Reference Range Interpretation Comments POC A pH (test code = POC A pH) 7.38 7.35-7.45 N [facility]bergXbbrkniFZBKMZGEU3896-64-28 17:27:00 Test Item Value Reference Range Interpretation Comments POC A Temp (test code = POC A Temp) 37.0 [facility]bergWyybutgDQCKHSJYV2972-78-06 17:27:00 Test Item Value Reference Range Interpretation Comments POC A Glu (test code = POC A Glu) 150 70-99 H [facility]bergQnfmzjwSATLLFLDT5479-82-04 17:27:00 Test Item Value Reference Range Interpretation Comments POC A LA (test code = POC A LA) 1.1 0.5-2.2 N [facility]bergGozayjfOPWPRALDZ5294-95-87 17:27:00 Test Item Value Reference Range Interpretation Comments POC A PCO2 (test code = POC A PCO2) 44 35-45 N [facility]bergOdlleixQRPESJREN7258-21-43 17:27:00 Test Item Value Reference Range Interpretation Comments POC A BE (test code = 1 See_Comment N [Auto mated message] The POC A BE) system which ge nerated this result transmit juan reference range : <=2. The reference range was not used to interpr et this result as lashonda l/abnormal. [facility]bergStgcdolLNGGQXCTQ9471-28-91 17:27:00 Test Item Value Reference Range Interpretation Comments POC A HCO3 (test code = POC A HCO3) 26 22-26 N [facility]bergHggwfmvZBRTIJOAB4416-65-29 17:27:00 Test Item Value Reference Range Interpretation Comments POC A PO2 (test code = POC A PO2) 161 80-100 H [facility]bergCdntkdyPGVCFHGIZ6698-69-73 17:27:00 Test Item Value Reference Range Interpretation Comments POC A Na (test code = POC A Na) 137 135-145 N [facility]bergTgawtxqJDATBCQMQ5521-58-72 17:27:00 Test Item Value Reference Range Interpretation Comments POC A Ca Ion (test code = POC A Ca Ion) 1.29 1.16-1.30 N [facility]bergOnyjxhrVYTEVCDRW0900-64-68 17:27:00 Test Item Value Reference Range Interpretation Comments POC A O2 Sat (test code = POC A O2 Sat) 99.0 95.0-100.0 N [facility] KlebergJygfvicMAGNJKZYX3490-89-09 17:27:00 Test Item Value Reference Range Interpretation Comments POC A K (test code = POC A K) 3.9 3.5-5.1 N [facility]bergPrprkvjPCRZIGQIF4381-75-39 17:27:00 Test Item Value Reference Range Interpretation Comments POC A Hct (test code = POC A Hct) 38.0 36.0-48.0 N [facility]bergWohffmsRVPYAHKOF2883-18-97 17:27:00 Test Item Value Reference Range Interpretation Comments POC A Source (test code = POC A Source) ART [facility] KlebergQmiqennMUFUYYWIJ1137-09-03 17:27:00 Test Item Value Reference Range Interpretation Comments POC A pH (test code = POC A pH) 7.38 7.35-7.45 N [facility]bergDxrytcuGPLICMPMF7480-54-45 17:27:00 Test Item Value Reference Range Interpretation Comments POC A Temp (test code = POC A Temp) 37.0 [facility]bergPdycppuGKGUURVGH3176-72-46 17:27:00 Test Item Value Reference Range Interpretation Comments POC A Glu (test code = POC A Glu) 150 70-99 H [facility] KlebergVmtbzunWUSMUPTPV4240-63-73 17:27:00 Test Item Value Reference Range Interpretation Comments POC A LA (test code = POC A LA) 1.1 0.5-2.2 N [facility]bergHizaylhEHVAWXOFT8367-04-59 17:27:00 Test Item Value Reference Range Interpretation Comments POC A PCO2 (test code = POC A PCO2) 44 35-45 N [facility]bergAvamsokJVFJBDMHI9607-91-56 17:27:00 Test Item Value Reference Range Interpretation Comments POC A BE (test code = 1 See_Comment N [Auto mated message] The POC A BE) system which ge nerated this result transmit juan reference range : <=2. The reference range was not used to interpr et this result as lashonda l/abnormal. [facility]bergEzniswtCYYAFULHF0077-16-52 17:27:00 Test Item Value Reference Range Interpretation Comments POC A HCO3 (test code = POC A HCO3) 26 22-26 N [facility] KlebergYiyiozrOWXOLYDAT1352-33-34 17:27:00 Test Item Value Reference Range Interpretation Comments POC A PO2 (test code = POC A PO2) 161 80-100 H [facility]bergJulhbumTOUPMQGPQ9407-95-86 17:27:00 Test Item Value Reference Range Interpretation Comments POC A Na (test code = POC A Na) 137 135-145 N [facility]bergTtgrsboMSHSKEMDL2597-12-65 17:27:00 Test Item Value Reference Range Interpretation Comments POC A Ca Ion (test code = POC A Ca Ion) 1.29 1.16-1.30 N [facility]bergZzvpcxvMCMWRLKDC2053-86-71 17:27:00 Test Item Value Reference Range Interpretation Comments POC A O2 Sat (test code = POC A O2 Sat) 99.0 95.0-100.0 N [facility]bergMyoftrxMUPIOTAIJ0980-04-67 17:27:00 Test Item Value Reference Range Interpretation Comments POC A K (test code = POC A K) 3.9 3.5-5.1 N [facility]bergJavzzcnUMSNKVWEY3077-41-96 17:27:00 Test Item Value Reference Range Interpretation Comments POC A Hct (test code = POC A Hct) 38.0 36.0-48.0 N [facility]bergPovjandTGBVIVDUX0429-63-97 17:27:00 Test Item Value Reference Range Interpretation Comments POC A Source (test code = POC A Source) ART [facility]bergTqtnbbaNBTCPNQCE5030-53-51 17:27:00 Test Item Value Reference Range Interpretation Comments POC A pH (test code = POC A pH) 7.38 7.35-7.45 N [facility]bergMrtdxlrTSABOYIWF7803-86-13 17:27:00 Test Item Value Reference Range Interpretation Comments POC A Temp (test code = POC A Temp) 37.0 [facility] KlebergLbalwkeFGYNKLWPX0069-94-82 17:27:00 Test Item Value Reference Range Interpretation Comments POC A Glu (test code = POC A Glu) 150 70-99 H [facility]bergHmtjkxsFODHCTUML4323-14-60 17:27:00 Test Item Value Reference Range Interpretation Comments POC A LA (test code = POC A LA) 1.1 0.5-2.2 N [facility]bergFutmxejRZJDZMCIG9506-48-57 17:27:00 Test Item Value Reference Range Interpretation Comments POC A PCO2 (test code = POC A PCO2) 44 35-45 N [facility] [id number] 17:27:00 Test Item Value Reference Range Interpretation Comments POC A BE (test code = 1 See_Comment N [Auto mated message] The POC A BE) system which ge nerated this result transmit juan reference range : <=2. The reference range was not used to interpr et this result as lashonda l/abnormal. [facility] [id number] 17:27:00 Test Item Value Reference Range Interpretation Comments POC A HCO3 (test code = POC A HCO3) 26 22-26 N [id number] 17:27:00 Test Item Value Reference Range Interpretation Comments POC A PO2 (test code = POC A PO2) 161 80-100 H [id number] 17:27:00 Test Item Value Reference Range Interpretation Comments POC A Na (test code = POC A Na) 137 135-145 N [id number] 17:27:00 Test Item Value Reference Range Interpretation Comments POC A Ca Ion (test code = POC A Ca Ion) 1.29 1.16-1.30 N [id number] 17:27:00 Test Item Value Reference Range Interpretation Comments POC A O2 Sat (test code = POC A O2 Sat) 99.0 95.0-100.0 N [id number] 17:27:00 Test Item Value Reference Range Interpretation Comments POC A K (test code = POC A K) 3.9 3.5-5.1 N [id number] 17:27:00 Test Item Value Reference Range Interpretation Comments POC A Hct (test code = POC A Hct) 38.0 36.0-48.0 N [id number] 17:27:00 Test Item Value Reference Range Interpretation Comments POC A Source (test code = POC A Source) ART [id number] 17:27:00 Test Item Value Reference Range Interpretation Comments POC A pH (test code = POC A pH) 7.38 7.35-7.45 N [facility]qhf[facility]pKQPVRCZZG0202-29-13 17:27:00 Test Item Value Reference Range Interpretation Comments POC A Temp (test code = POC A Temp) 37.0 [id number] 17:27:00 Test Item Value Reference Range Interpretation Comments POC A Glu (test code = POC A Glu) 150 70-99 H [id number] 17:27:00 Test Item Value Reference Range Interpretation Comments POC A LA (test code = POC A LA) 1.1 0.5-2.2 N [facility] [employer] [id number] 14:25:00 Test Item Value Reference Range Interpretation Comments ABO/Rh (test code = ABO/Rh) A NEG [facility] [employer] [id number] 14:25:00 Test Item Value Reference Range Interpretation Comments Antibody Scrn (test Negative (10/03/2012 N code = Antibody Scrn) 09:25:00) [facility] [employer] [id number] 14:25:00 Test Item Value Reference Range Interpretation Comments ABO/Rh (test code = ABO/Rh) A NEG [facility] [employer] [id number] 14:25:00 Test Item Value Reference Range Interpretation Comments Antibody Scrn (test Negative (10/03/2012 N code = Antibody Scrn) 09:25:00) [facility] [employer] [id number] 14:25:00 Test Item Value Reference Range Interpretation Comments ABO/Rh (test code = ABO/Rh) A NEG [facility] [employer] [id number] 14:25:00 Test Item Value Reference Range Interpretation Comments Antibody Scrn (test Negative (10/03/2012 N code = Antibody Scrn) 09:25:00) [facility] [employer] [id number] 14:25:00 Test Item Value Reference Range Interpretation Comments ABO/Rh (test code = ABO/Rh) A NEG [facility] [id number] 14:25:00 Test Item Value Reference Range Interpretation Comments Antibody Scrn (test Negative (10/03/2012 N code = Antibody Scrn) 09:25:00) [facility] [id number] 14:25:00 Test Item Value Reference Range Interpretation Comments ABO/Rh (test code = ABO/Rh) A NEG [facility] [id number] 14:25:00 Test Item Value Reference Range Interpretation Comments Antibody Scrn (test Negative (10/03/2012 N code = Antibody Scrn) 09:25:00) [facility] [id number] 14:25:00 Test Item Value Reference Range Interpretation Comments ABO/Rh (test code = ABO/Rh) A NEG [facility]As[facility] [id number] 14:25:00 Test Item Value Reference Range Interpretation Comments Antibody Scrn (test Negative (10/03/2012 N code = Antibody Scrn) 09:25:00) [facility] Notes Date/Time Note Provider Source 2016-01-13 17:17:59-00:00 EXAMINATION: Left knee 2 views [facility] HISTORY: Left knee pain status post fall; [...] sty in near-anatomic alignment without periprosthetic fracture 2016-01-13 17:17:59-00:00 EXAMINATION: Left knee 2 views [facility] HISTORY: Left knee pain status post fall; [...] sty in near-anatomic alignment without periprosthetic fracture 2016-01-13 17:17:52-00:00 LUMBAR SPINE 4 VIEWS [facility] Clinical History: 75-year-old female with low ba [...] lumbar spondylosis. L4-L5 and L5-S1 disc disease. 2016-01-13 17:17:52-00:00 LUMBAR SPINE 4 VIEWS [facility] Clinical History: 75-year-old female with low ba [...] lumbar spondylosis. L4-L5 and L5-S1 disc disease. 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 2016-01-12 11:38:20-00:00 EXAM: MRI LUMBAR SPINE WITHOUT CONTRAS T [facility] DATE: 01/11/2016 10:08 PM CDT . CLINICAL INDICATION: Pain with neurologic manife station . TECHNIQUE: Multiplanar, multisequence MRI lumbar spine [...] There is no stenosis. L1-L2. Intervertebral disc h eight and signal are maintained. Posterior elements are normal. There is no stenosis. L2-L3. Loss of intervertebra l disc height and signal with small diffuse disc bulge and small radial annular fissure. Facets are mildly enlarged. Central canal measures 9 mm without cauda equina crowding . Lateral recesses are narro wed with disc and facets contacting each L3 nerve root. Neural foramina are patent. L3-L4. Loss of intervertebra l disc height and signal with small diffuse disc bulge. Facets are mildly enlarged with ligamentous redundancy. Central canal measures 8 mm without cauda equina crowding. Lat eral recesses are narrowed w ith disc and facets contacting each L4 nerve root. There is mild/moderate right and moderate left narrowing of the neural foramina bilaterally without compression of the L3 n erve roots. The left exiting nerve root is minim ally contacted. L4-L5. Loss of intervertebra l disc height and signal with moderate diffuse disc bulge and radial annular fissuring. Facets are enlarged bilaterally with ligamentous redundancy and synovial inflammation, but no synovial cyst. Centr al canal measures 7 mm without cauda equina crowding. There is left greater the right lateral recess stenosis with slight mass effect on the descending L5 nerve roots. There is moderate moderate narrowi ng of the neural foramina without L4 nerve root mass effect. L5-S1. Loss of intervertebra l disc height and signal with circumferential disc osteophyte complex asymmetric to the left extra foraminal zone. Facets are mildly enlarged. There is a 2 mm central and lef t subarticular zone protrusi on. Central canal measures 9 mm. Left lateral recess is narrowed with mass effect on the left S1 nerve root. There is moderate to severe stenosis of left neural foramen and m oderate stenosis of the righ t. The left exiting nerve root is flattened [...] inflammation or additional potential sources of pain 2016-01-12 11:38:20-00:00 EXAM: MRI LUMBAR SPINE WITHOUT CONTRAS T [facility] DATE: 01/11/2016 10:08 PM CDT . CLINICAL INDICATION: Pain with neurologic manife station . TECHNIQUE: Multiplanar, multisequence MRI lumbar spine [...] There is no stenosis. L1-L2. Intervertebral disc h eight and signal are maintained. Posterior elements are normal. There is no stenosis. L2-L3. Loss of intervertebra l disc height and signal with small diffuse disc bulge and small radial annular fissure. Facets are mildly enlarged. Central canal measures 9 mm without cauda equina crowding . Lateral recesses are narro wed with disc and facets contacting each L3 nerve root. Neural foramina are patent. L3-L4. Loss of intervertebra l disc height and signal with small diffuse disc bulge. Facets are mildly enlarged with ligamentous redundancy. Central canal measures 8 mm without cauda equina crowding. Lat eral recesses are narrowed w ith disc and facets contacting each L4 nerve root. There is mild/moderate right and moderate left narrowing of the neural foramina bilaterally without compression of the L3 n erve roots. The left exiting nerve root is minim ally contacted. L4-L5. Loss of intervertebra l disc height and signal with moderate diffuse disc bulge and radial annular fissuring. Facets are enlarged bilaterally with ligamentous redundancy and synovial inflammation, but no synovial cyst. Centr al canal measures 7 mm without cauda equina crowding. There is left greater the right lateral recess stenosis with slight mass effect on the descending L5 nerve roots. There is moderate moderate narrowi ng of the neural foramina without L4 nerve root mass effect. L5-S1. Loss of intervertebra l disc height and signal with circumferential disc osteophyte complex asymmetric to the left extra foraminal zone. Facets are mildly enlarged. There is a 2 mm central and lef t subarticular zone protrusi on. Central canal measures 9 mm. Left lateral recess is narrowed with mass effect on the left S1 nerve root. There is moderate to severe stenosis of left neural foramen and m oderate stenosis of the righ t. The left exiting nerve root is flattened [...] inflammation or additional potential sources of pain 2016-01-11 19:46:17-00:00 CLINICAL HISTORY: Abnormal chest sound s. [facility] : 1940. TECHNIQUE: PA and lateral views of the chest. Co mparison: 09/14/2012. Heart size: Normal. Tortuous aorta. Lungs: No acute consolidation. Shallow inspirati on. Pleura: No pleural effusion. Mediastinum and elizabeth: Unremarkable. Skeletal: Unremarkable. IMPRESSION: 1. No active disease in the chest. 2016-01-11 19:46:17-00:00 [facility] TECHNIQUE: PA and lateral views of the chest. Co mparison: 09/14/2012. Heart size: Normal. Tortuous aorta. Lungs: No acute consolidation. Shallow inspirati on. Pleura: No pleural effusion. Mediastinum and elizabeth: Unremarkable. Skeletal: Unremarkable. IMPRESSION: 1. No active disease in the chest. 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 FINDINGS: The patient is aga in noted to be status post anterior fusion from C4- C6 with interbody spacers between these levels. Alignment is within normal limits. There is no perihardware lucency or evid ence of failure. No new or s uperimposed bony abnormality is identified. Prevertebral soft tissue contours are within normal limits. Vascular calcifications overlie the carotid bulbs. IMPRESSION: Unchanged, satis factory alignment following anterior fusion at C4- C6 . 2013-09-17 11:58:24-00:00 EXAM: XR CERVICAL SPINE 2 VIEWS [facility] DATE: 2013-09-17 12:00:00 INDICATION: 723.4 Brachial Neuritis or Radiculit is NOS COMPARISON: March 19, 2013 TECHNIQUE: AP and lateral ra diographs of the cervical spine show from the skull base through C7. FINDINGS: The patient is aga in noted to be status post anterior fusion from C4- C6 with interbody spacers between these levels. Alignment is within normal limits. There is no perihardware lucency or evid ence of failure. No new or s uperimposed bony abnormality is identified. Prevertebral soft tissue contours are within normal limits. Vascular calcifications overlie the carotid bulbs. IMPRESSION: Unchanged, satis factory alignment following anterior fusion at C4- C6 . 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 TECHNIQUE: AP and lateral ra diographs cervical spine from the skull base through [...] degenerative changes at the C6-C7 disc space. 2012-12-25 08:45:00-00:00 EXAM: XR CERVICAL SPINE 2 VIEWS [facility] DATE: December 25, 2012, 0827 hours. 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 TECHNIQUE: AP and lateral ra diographs cervical spine from the skull base through [...] degenerative changes at the C6-C7 disc space. 2012-11-22 08:16:51-00:00 EXAM: CERVICAL SPINE 2 VIEWS [facility] DATE: November 22, 2012 0803 hours INDICATION: 723.4 Brachial Neuritis or Radiculit is not otherwise specified COMPARISON: CT C-spine, October 03, 2012 TECHNIQUE: AP and lateral ra diographs of the cervical spine show from the [...] anterior fusion without evidence of hardware failure. 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 FINDINGS: Anterior interbody fusions from C4 to C6 are reidentified. Interbody screws with intervertebral spacers are in unchanged position. Screws have good purchase. There is no perihardware lucency o r fracture. Cervical alignme nt is unchanged. There is no prespinous or paraspinous soft tissue abnormality.
[2022-12-28] MEDS ORDERED: NA CHLORIDE 0.9% 500 ML ONE (14:15)
[2022-12-28] MEDS ORDERED: PROMETHAZINE INJ 25 MG/ML AMP ONE (14:15)
[2022-12-28 14:26] LABS: Absolute Lymphocytes (CBC) 0.3 K/uL (0.7-4.9); Hematocrit 39.7 % (36.0-45.0); Lymphocytes % 3.6 % (15.3-44.8); MCV 90.7 fL (80-100); MPV 9.8 fL (7.6-11.3); RBC Red Blood Cell Count 4.37 M/uL (3.86-4.86)
[2022-12-28 16:14] LABS: Bilirubin Total 0.3 mg/dL (0.2-1.0); Potassium 4.2 mEq/L (3.5-5.1); Protein, Total 6.3 g/dL (6.4-8.2); Troponin High Sensitivity 11.6 pg/mL (<58.9)
[2022-12-28 17:28] LABS: Specific Gravity 1.015 (1.005-1.030); Urine Bacteria <20 /HPF (<20); Urine Bilirubin NEGATIVE (Negative); Urine Blood Negative (Negative); Urine Clarity Turbid (Clear); Urine Color Light-Yellow (Yellow); Urine Glucose NEGATIVE (Negative); Urine Protein 3+ (Negative); Urine RBC 21-50 /HPF (None Seen); Urine Urobilinogen Normal (Normal)
[2022-12-28 17:29] LABS: Urine Crystals Unidentified Few /HPF (None Seen)
--- NOTE | 2022-12-28 17:38 | ER ---
Nurse's Notes [facility] Name: Kate oLve Age: 82 yrs Sex: Female : 1940 Arrival Date: 12/28/2022 Time: 13:15 Bed 13 Private MD: Diagnosis: Vomiting and diarrhea Presentation: 12/28 13:38 Chief complaint: EMS states: n/v X 5 episodes since 3 am, also has epigastric pain , iw also had diarrhea today. Coronavirus screen: Client presents with at least one sign or symptom that may indicate coronavirus-19. Ebola Screen: Patient negative for fever greater than or equal to 101.5 degrees Fahrenheit, and additional compatible Ebola Virus Disease symptoms Patient denies exposure to infectious person. Patient denies travel to an Ebola-affected area in the 21 days before illness onset. No symptoms or risks identified at this time. Initial Sepsis Screen: Does the patient meet any 2 criteria? No. Patient's initial sepsis screen is negative. Does the patient have a suspected source of infection? No. Patient's initial sepsis screen is negative. Risk Assessment: Do you want to hurt yourself or someone else? Patient reports no desire to harm self or others. Onset of symptoms was December 28, 2022. 13:38 Method Of Arrival: EMS: [facility] iw 13:38 Acuity: AURELIA 3 iw 13:43 Care prior to arrival: Medication(s) given: zofran 4 mg, IV initiated. 20 GA, in the iw right antecubital area. Historical: - Allergies: 13:42 No Known Allergies; iw - Home Meds: 13:41 aspirin 81 mg Oral TbEC 1 tab once daily [Active]; iw 13:46 Jentadueto XR 5-1,000 mg oral tablet,immed \T\ ext release,biphasic 24hr daily [Active]; iw Soliqua 100/33 100 unit-33 mcg/mL subcutaneous Insulin Pen daily [Active]; Novolog U-100 Insulin aspart 100 unit/mL Sub-Q solution Use as Directed [Active]; hydralazine 25 mg Oral tab 1 tab 3 times per day [Active]; clonidine HCl 0.1 mg oral tablet 3 times per day [Active]; carvedilol 12.5 mg Oral tab 2 times per day [Active]; cinacalcet 30 mg oral tablet nightly [Active]; valsartan 320 mg oral tablet daily [Active]; ezetimibe 10 mg Oral tab 1 tab daily [Active]; 13:51 pregabalin 75 mg Oral capsule one in morning, 2 at night [Active]; omeprazole 20 mg iw Oral Tablet,disintegrating,delayed release as needed [Active]; furosemide 20 mg Oral tablet daily [Active]; biotin 5,000 mcg oral Tablet,disintegrating daily [Active]; Livalo 4 mg oral tablet daily [Active]; Vitamin D Oral 1,000 unit daily [Active]; Miralax Oral as needed [Active]; CoQ-10 100 mg oral capsule daily [Active]; - PMHx: 13:41 Asthma; cardiac stent x2; Diabetes - IDDM; Hyperlipidemia; Hypertension; Myocardial iw infarction; - Immunization history:: Adult Immunizations unknown. - Social history:: Smoking status: Patient denies any tobacco usage or history of. Screenin:22 [facility] ED Fall Risk Assessment (Adult) History of falling in the last 3 months, iw including since admission Score/Fall Risk Level. Abuse screen: Denies threats or abuse. Denies injuries from another. Nutritional screening: No deficits noted. Tuberculosis screening: No symptoms or risk factors identified. Assessment: 13:40 General: Appears in no apparent distress. Behavior is calm, cooperative. Pain: iw Complains of pain in mid-sternal area Neuro: Level of Consciousness is awake, alert, obeys commands, Oriented to person, place, time, situation, Moves all extremities. Full function. Cardiovascular: Patient's skin is warm and dry. Respiratory: Respiratory effort is even, unlabored, Respiratory pattern is regular, symmetrical. GI: Abdomen is non-distended, Reports epigastric pain, nausea, vomiting. Derm: Skin is intact, is healthy with good turgor. Musculoskeletal: Range of motion: intact in all extremities. 14:23 Reassessment: Patient appears in no apparent distress at this time. Patient and/or iw family updated on plan of care and expected duration. Pain level reassessed. Patient is alert, oriented x 3, equal unlabored respirations, skin warm/dry/pink. pt sleeping, O2 noted to be 85% on RA, pt states she normally runs in 80's to 90's , refuses supplemental O2. 15:00 Reassessment: Patient appears in no apparent distress at this time. Patient and/or nj1 family updated on plan of care and expected duration. Pain level reassessed. Pt resting with eyes closed/asleep. 16:30 Reassessment: Patient appears in no apparent distress at this time. Patient and/or nj1 family updated on plan of care and expected duration. Pain level reassessed. Patient is alert, oriented x 3, equal unlabored respirations, skin warm/dry/pink. 17:30 Reassessment: Patient appears in no apparent distress at this time. Patient and/or nj1 family updated on plan of care and expected duration. Pain level reassessed. Patient is alert, oriented x 3, equal unlabored respirations, skin warm/dry/pink. Patient states symptoms have improved. Vital Signs: 13:38 BP 144 / 57; Pulse 77; Resp 19; Temp 99.8; Pulse Ox 91% on R/A; iw 14:22 BP 144 / 47; Pulse 76; Resp 16; Pulse Ox 85% on R/A; iw 15:01 BP 144 / 47; Pulse 76; Resp 13; Pulse Ox 88% on R/A; nj1 15:02 Pulse Ox 97% on 2 lpm NC; nj1 16:00 BP 151 / 50; Pulse 70; Resp 19; Pulse Ox 97% on 2 lpm NC; nj1 17:30 BP 135 / 44; Pulse 70; Resp 16; Pulse Ox 92% on R/A; nj1 ED Course: 13:26 Patient arrived in ED. ia1 13:33 Sherley Allred MD is Attending Physician. snw 13:41 Triage completed. iw 13:41 Arm band placed on. iw 13:44 Maintain EMS IV. Dressing intact. Good blood return noted. Site clean \T\ dry. Gauge \T\ iw site: 20 RAC. 14:18 Initial lab(s) drawn, by me, sent to lab. sm8 14:19 COVID swab sent to lab. Flu and/or RSV swab sent to lab. sm8 14:20 Dasha Teran, RN is Primary Nurse. iw 14:20 EKG done, by ED staff. sm8 14:21 COVID-19 SARS RT PCR Sent. sm8 14:21 Flu Sent. sm8 14:21 CBC with Diff Sent. sm8 15:00 Patient has correct armband on for positive identification. Bed in low position. Call nj1 light in reach. Side rails up X 1. Adult w/ patient. 15:00 Provided Education on: fall precautions. nj1 15:46 Troponin High Sensitivity Sent. sm8 15:47 Lab(s) recollected, by ED staff, sent to lab. 8 17:50 No provider procedures requiring assistance completed. nj1 17:50 IV discontinued, intact, bleeding controlled. nj1 Administered Medications: 14:11 Drug: NS 0.9% IV 500 ml Route: IV; Rate: bolus; Site: right antecubital; ap3 15:02 Follow up: Response: No adverse reaction; IV Status: Completed infusion; IV Intake: nj1 500ml 14:11 Drug: Promethazine IVP 12.5 mg Route: IVP; Site: right antecubital; ap3 15:02 Follow up: Response: No adverse reaction nj1 Medication: 14:22 VIS not applicable for this client. iw Intake: 15:02 IV: 500ml; Total: 500ml. nj1 Outcome: 17:38 Discharge ordered by MD. sd2 17:50 Discharged to home via wheelchair, with family. nj1 17:50 Condition: stable 17:50 Discharge instructions given to patient, family, Instructed on discharge instructions, follow up and referral plans. medication usage, Demonstrated understanding of instructions, follow-up care, medications, Prescriptions given X 2. 18:00 Patient left the ED. nj1 Signatures: Alla Issa, LEASING SALES CONSULTANT-C LEASING SALES CONSULTANT-Csnw Dasha Teran RN RN iw Zahraa Mojica RN RN ap3 Sherley Allred MD MD az2 Polina Wilks RN RN nj1 Carmen Flor 8 Corrections: (The following items were deleted from the chart) 14:25 14:23 Reassessment: Patient appears in no apparent distress at this time. Patient iw and/or family updated on plan of care and expected duration. Pain level reassessed. Patient is alert, oriented x 3, equal unlabored respirations, skin warm/dry/pink. pt sleeping, O2 noted to be 85% on RA, pt placed on 2 L NC iw 17:38 16:00 BP 151 / 50; Pulse 70bpm; Resp 19bpm; Pulse Ox 96%; nj1 nj1 18:11 18:00 BP 135 / 44; Pulse 70bpm; Resp 16bpm; Pulse Ox 92% RA; nj1 nj1 18:13 18:13 Patient left the ED. nj nj1
--- NOTE | 2022-12-28 17:38 | EDPHYS ---
Physician Documentation [facility] Name: Kate Love Age: 82 yrs Sex: Female : 1940 Arrival Date: 12/28/2022 Time: 13:15 Bed 13 Private MD: ED Physician Sherley Allred HPI: 12/28 13:36 This 82 yrs old Female presents to ER via Unassigned with complaints of sd2 vomiting and diarrhea. 13:36 82 yo F presents via EMS with CC of nausea, vomiting and diarrhea that started this AM sd2 upon awakening. Estimates emesis 5 times this AM with associated diarrhea and temp 100.5F at home as well. Denies any known sick contacts. No recent new food exposures. Denies abdominal pain but describes a "fullness" in her chest that she gets similarly whenever she eats anything with tomatoes. Does not report it feels like her prior MIs. . 13:36 Given 4 mg of Zofran with EMS with minimal improvement in her nausea. . sd2 Historical: - Allergies: 13:42 No Known Allergies; iw - Home Meds: 13:41 aspirin 81 mg Oral TbEC 1 tab once daily [Active]; iw 13:46 Jentadueto XR 5-1,000 mg oral tablet,immed \\T\\ ext release,biphasic 24hr daily [Active]; iw Soliqua 100/33 100 unit-33 mcg/mL subcutaneous Insulin Pen daily [Active]; Novolog U-100 Insulin aspart 100 unit/mL Sub-Q solution Use as Directed [Active]; hydralazine 25 mg Oral tab 1 tab 3 times per day [Active]; clonidine HCl 0.1 mg oral tablet 3 times per day [Active]; carvedilol 12.5 mg Oral tab 2 times per day [Active]; cinacalcet 30 mg oral tablet nightly [Active]; valsartan 320 mg oral tablet daily [Active]; ezetimibe 10 mg Oral tab 1 tab daily [Active]; 13:51 pregabalin 75 mg Oral capsule one in morning, 2 at night [Active]; omeprazole 20 mg iw Oral Tablet,disintegrating,delayed release as needed [Active]; furosemide 20 mg Oral tablet daily [Active]; biotin 5,000 mcg oral Tablet,disintegrating daily [Active]; Livalo 4 mg oral tablet daily [Active]; Vitamin D Oral 1,000 unit daily [Active]; Miralax Oral as needed [Active]; CoQ-10 100 mg oral capsule daily [Active]; - PMHx: 13:41 Asthma; cardiac stent x2; Diabetes - IDDM; Hyperlipidemia; Hypertension; Myocardial iw infarction; - Immunization history:: Adult Immunizations unknown. - Social history:: Smoking status: Patient denies any tobacco usage or history of. ROS: 13:36 Constitutional: Positive for fever, Negative for chills, and weight loss, Eyes: sd2 Negative for injury, pain, redness, and discharge, Cardiovascular: Negative for chest pain, palpitations, and edema, Respiratory: Negative for shortness of breath, cough, wheezing. Abdomen/GI: Positive for nausea, vomiting, diarrhea. Negative for abdominal pain. : Negative for dysuria, urinary frequency, hesitancy, urgency and hematuria. MS/Extremity: Negative for injury and deformity, Skin: Negative for injury, rash, and discoloration, Neuro: Negative for headache, numbness and tingling. Exam: 13:36 Constitutional: This is a well developed, well nourished patient who is awake, alert, sd2 and in no acute distress. Head/Face: Normocephalic, atraumatic. Eyes: EOMI, normal conjunctiva bilaterally Chest/axilla: Normal chest wall appearance and motion. Nontender with no deformity. Cardiovascular: Regular rate and rhythm with a normal S1 and S2. No gallops, murmurs, or rubs. 2+ distal pulses. Respiratory: Lungs have equal breath sounds bilaterally, clear to auscultation and percussion. No rales, rhonchi or wheezes noted. No increased work of breathing, no retractions or nasal flaring. Abdomen/GI: Soft, non-tender, with normal bowel sounds. No guarding or rebound. No evidence of tenderness throughout. Skin: Warm, dry with normal turgor. Normal color with no rashes, no lesions, and no evidence of cellulitis. MS/ Extremity: Pulses equal, no cyanosis. Neurovascular intact. Full, normal range of motion. Ambulatory without difficulty. Psych: Awake, alert, with orientation to person, place and time. Behavior, mood, and affect are within normal limits. 14:28 ECG was reviewed by the Attending Physician. NSR, rate 72, no STEMI criteria sd2 Vital Signs: 13:38 BP 144 / 57; Pulse 77; Resp 19; Temp 99.8; Pulse Ox 91% on R/A; iw 14:22 BP 144 / 47; Pulse 76; Resp 16; Pulse Ox 85% on R/A; iw 15:01 BP 144 / 47; Pulse 76; Resp 13; Pulse Ox 88% on R/A; nj1 15:02 Pulse Ox 97% on 2 lpm NC; nj1 16:00 BP 151 / 50; Pulse 70; Resp 19; Pulse Ox 97% on 2 lpm NC; nj1 17:30 BP 135 / 44; Pulse 70; Resp 16; Pulse Ox 92% on R/A; nj1 MDM: 13:33 Patient medically screened. snw 13:36 Differential Diagnosis Gastritis, cholecystitis, pancreatitis, SBO, diverticulitis, sd2 kidney stone, appendicitis, UTI, dehydration, electrolyte abnormality among others. Data reviewed: vital signs, nurses notes, EMS record, lab test result(s), EKG. 17:35 I considered the following discharge prescriptions or medication management in the ms2 emergency department Medications were administered in the Emergency Department. See MAR. Test considered but Not performed: CT: Labs reassuring with benign abdominal exam. Thus, CT not performed or indicated today. . Historians other than the Patient: Spouse/Significant Other: provides further information and report. Care significantly affected by the following chronic conditions: Diabetes, Hypertension, Obesity, Cardiac disease. Counseling: I had a detailed discussion with the patient and/or guardian regarding: the historical points, exam findings, and any diagnostic results supporting the discharge/admit diagnosis, lab results, the need for outpatient follow up, to return to the emergency department if symptoms worsen or persist or if there are any questions or concerns that arise at home. Response to treatment: the patient's symptoms have markedly improved after treatment. ED course: Labs reviewed and are reassuring. No significant leukocytosis or abnormalities. UA without evidence of infection. Possible RBCs but no blood and patient without flank or abdominal pain on exam. OVerall abdominal exam benign. Pt able to tolerate PO at bedside. Suspect gastroenteritis. Pt and comfortable with plan for discharge home with strict return precautions. . 12/28 13:36 Order name: CBC with Diff; Complete Time: 15:30 sd2 12/28 13:36 Order name: CMP; Complete Time: 16:16 12/28 13:36 Order name: Lipase; Complete Time: 16:16 12/28 13:36 Order name: Troponin High Sensitivity; Complete Time: 16:16 12/28 13:36 Order name: Urinalysis w/ reflexes; Complete Time: 17:29 12/28 13:36 Order name: COVID-19 SARS RT PCR; Complete Time: 16:30 12/28 13:36 Order name: Flu; Complete Time: 16:16 12/28 13:36 Order name: EKG - Nurse/Tech; Complete Time: 14:20 sd2 Administered Medications: 14:11 Drug: NS 0.9% IV 500 ml Route: IV; Rate: bolus; Site: right antecubital; ap3 15:02 Follow up: Response: No adverse reaction; IV Status: Completed infusion; IV Intake: nj1 500ml 14:11 Drug: Promethazine IVP 12.5 mg Route: IVP; Site: right antecubital; ap3 15:02 Follow up: Response: No adverse reaction nj1 Disposition Summary: 12/28/22 17:38 Discharge Ordered Location: Home sd2 Problem: new sd2 Symptoms: have improved sd2 Condition: Stable sd2 Diagnosis - Vomiting and diarrhea sd2 Followup: sd2 - With: Private Physician - When: 2 - 3 days - Reason: Recheck today's complaints, Continuance of care, Re-evaluation by your physician Discharge Instructions: - Discharge Summary Sheet sd2 - Diarrhea, Adult sd2 - Nausea and Vomiting, Adult sd2 Forms: - Medication Reconciliation Form sd2 - Thank You Letter sd2 - Antibiotic Education sd2 - Prescription Opioid Use sd2 - Patient Portal Instructions sd2 Prescriptions: - dicyclomine 20 mg Oral tablet - take 1 tablet by ORAL route every 6 hours As needed Take as needed for sd2 abdominal cramping; 15 tablet; Refills: 0, Product Selection Permitted - Zofran 4 mg Oral Tablet - take 1 tablet by ORAL route every 6 hours As needed; 20 tablet; Refills: 0, sd2 Product Selection Permitted Signatures: Dispatcher [facility] All[facility] FNP-C [employer] Dasha Teran RN RN iw Zahraa Mojica RN RN ap3 Sherley Allred MD MD sd2 Polina Wilks RN RN nj1
[2022-12-28 18:42] VITALS: TEMP 99.8
[2022-12-28 18:50] VITALS: BP 135/44; O2SAT 92
--- NOTE | 2022-12-29 12:51 | EKG ---
Test Date: 2022-12-28 Test Time: 13:57:32 Apparel Fashion Designer: JOSÉ LUIS MEASUREMENT RESULTS: Intervals: Rate: 72 DC: 182 QRSD: 76 QT: 368 QTc: 402 [place]: P: 36 DC: 182 QRS: 46 T: 33 INTERPRETIVE STATEMENTS: Normal sinus rhythm Normal ECG Compared to ECG 09/11/2022 11:23:36 Ventricular premature complex(es) no longer present Electronically Signed On 12-29-22 12:49:53 CDT by Brett Samson
== END 2022-12-28 18:13 | disposition home or self-care (01) ==
LOC: ER 13:15
DX: R11.10 Vomiting, unspecified (principal); R19.7 Diarrhea, unspecified; I10 Essential (primary) hypertension; E11.9 Type 2 diabetes mellitus without complications; Z20.822 Contact with and (suspected) exposure to COVID-19; Z95.818 Presence of other cardiac implants and grafts; Z79.82 Long term (current) use of aspirin; Z79.4 Long term (current) use of insulin
CPT/HCPCS: 96361; 93005; 85025; 81001; 36415; 84484; 83690; 80053; 87635; 87804 ×2; 96374; 99284; J2550; J7040

== ENCOUNTER 2023-01-15 11:00 | Emergency (ER) | payer OTHER ==
[2023-01-15 11:22] LABS: Absolute Lymphocytes (CBC) 1.1 K/uL (0.7-4.9); Hematocrit 34.9 % (36.0-45.0); Lymphocytes % 17.1 % (15.3-44.8); MCV 88.7 fL (80-100); MPV 9.1 fL (7.6-11.3); RBC Red Blood Cell Count 3.93 M/uL (3.86-4.86)
[2023-01-15] MEDS ORDERED: FAMOTIDINE 20 MG/2 ML VIAL IV ONE (11:38)
[2023-01-15] MEDS ORDERED: NA CHLORIDE 0.9% 1,000 ML ONE (11:38)
[2023-01-15 11:40] LABS: Albumin 2.9 g/dL (3.4-5.0); Bilirubin Total 0.5 mg/dL (0.2-1.0); Potassium 3.6 mEq/L (3.5-5.1); Protein, Total 5.7 g/dL (6.4-8.2); Troponin High Sensitivity 9.9 pg/mL (<58.9)
--- OUTSIDE RECORDS SUMMARY | 2023-01-15 11:42 | XMS REPORT | Continuity of Care Document ---
:1940 Author Organization [facility] t Address [address] [place] [address] [place] [id number] Care Team Providers Name Role Phone Joao Paz Sae Primary Care Physician MICHAEL ASHBY Attending Clinician Unavailable Alex Marie MD Attending Clinician Ej Attending Clinician Unavailable Rut Nicolas MA Attending Clinician Unavailable Provider , Not In System Attending Clinician Unavailable TYLER_Mely Attending Clinician Unavailable Doctor Unassigned, [place] Attending Clinician Unavailable Chucho Montenegro MD Attending Clinician CHUCHO MONTENEGRO Attending Clinician Unavailable Lora Quinones MD Attending Clinician Roger Holloway Attending Clinician [phone] Phillip Castaneda Attending Clinician Unavailable Joby Wheeler MD Attending Clinician Whitley Bryson RN Attending Clinician Unavailable MICHAEL ASHBY M.D. Attending Clinician Unavailable Riley Whyte Attending Clinician Jean Paul Angela Attending Clinician Ranjit Drew Attending Clinician Keron Thomas Attending Clinician Ej Admitting Clinician Unavailable TYLER_Mely Admitting Clinician Unavailable KNOW, DOES_NOT Admitting Clinician Unavailable Riley Whyte Admitting Clinician Jean Paul Angela Admitting Clinician Ranjit Derw Admitting Clinician Payers Payer Name Policy Type Policy Number Effective Date Expiration Date S inés [facility] MEDICARE [id number] 2021 ADVANTAGE 00:00:00 [facility] [id number] 2021 (MEDICARE 00:00:00 REPLACEMENT/ADVANTA GE - PPO) [facility] [id number] 2023 00:00:00 [place]ARE B-[place]: [id number] [employer] (MEDICARE [id number] REPLACEMENT/ADVANTA GE - PPO) Problems Condition Condition [...] Long-term Problem Active Perry benny current Current 08-22 Family use of Use of 00:00: Practic insulin Insulin 00 e Hip pain Hip Pain Problem Active Azale a 03-09 Orthope 00:00: dic 00 Sports Medicin e Pain of Pain of Problem Active Arlin left hip Left Hip 03-09 Orthop e joint Joint 00:00: dic 00 Sports Medicin e Senile Senile Problem Active [place] purpura Purpura 08 Family 00:00: Practic 00 e Low back [...] illage emia emia 2-05 Family 00:00: Practic e Hypercalce Hypercalce Disease Active M ethodi lis lis 12-23 st 00:00: Hospita 00 l Primary Primary Disease Active Methodi hyperparat hyperparat 08 st hyroidism hyroidism 00:00: Hosp gladys 00 [...] 00:00: di c 00 Sports Medicin e 38251, 87468, Diagnosis Active 2016-08-23 Me krystina [id number] X3, 22948 X3, 8-16 21:24:00 l CONNECTIVE CONNECTIVE 00:00: Manolo rae TISSUE AND TISSUE AND 00 D D Active 02/01/2016 [facility] HERNIATED HERNIATED Diagnosis Active 2016-02-01 Memoria LUMBAR LUMBAR 7-26 22:00:00 l DISK S/P DISK S/P 00:00: Richard thompson FALL WITH FALL WITH 00 LT H LT H Active 01/11/2016 [facility] HERNIATED HERNIATED Diagnosis Active 2016-01-11 Memoria LUMBAR LUMBAR 7-25 05:29:00 l DISK S/P DISK S/P 00:00: Richard thompson FALL WITH FALL WITH 00 LEFT LEFT Active 01/10/2016 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 [facility] CERVICAL CERVICAL Diagnosis Active 2012-10-07 Memoria RADICULITI RADICULITI - 13:29:00 l S, S, 00:00: Luke CERVICAL CERVICAL 00 DISC DISP DISC DISP Active 09/06/2012 [facility] Osteoarthr Osteoarthr Problem Active 2010-06 A zalea itis of itis of 0-25 Orthope knee Knee 00:00: dic 00 Sports Medicin e Diabetes Diabetes Problem Resolve 2013-03-21 Memoria mellitus mellitus d 20:07:44 l Resolved Luke Problem 03/21/2013 [facility] PHYLLIS Butler GERD - GERD - Problem Resolve 2013-03-21 Mem oria Gastro-eso Gastro-eso d 20:07:44 l phageal phageal [place] reflux reflux disease disease Resolved Problem 03/21/2013 [facility] PHYLLIS [place] HLD - HLD - Problem Resolve 2013-03-21 Boy tadeo Hyperlipid Hyperlipid d 20:07:44 l emia emia Luke Resolved Problem 03/21/2013 [facility] PHYLLIS [place] HTN - HTN - Problem Resolve 2013-03-21 Boy tadeo Hypertensi Hypertensi d 20:07:44 l on on [place] Resolved Problem 03/21/2013 [facility] PHYLLIS [place] Neuropathy Neuropath Problem Resolve 2013-03-21 Memoria y Resolved d 20:07:44 l Problem [place] 03/21/2013 [facility] PHYLLIS [place] Diabetes Diabetes Problem Active 2016-02-17 Memoria mellitus mellitus 00:32:37 l (disorder) (disorder) He rmann Active Problem [facility]17[facility] Problem Active 2016-02-17 Memoria nt of ent of 00:32:37 l lumbar lumbar [place] interverte interverte bral disc bral disc without without myelopathy myelopathy (disorder) (disorder) Active Problem 02/17/2016 [facility] Gastroesop Gastroeso Problem Active 2016-02-17 Memoria hageal phageal 00:32:37 l reflux reflux [place] disease disease (disorder) (disorder) Active Problem 02/17/2016 OPID Luke,[facility] Lumbar Lumbar Problem Active 2016-02-17 Mem oria radiculopa radiculopa 00:32:37 l thy thy Luke (disorder) (disorder) Active Problem 02/17/2016 [facility] Lumbar Lumbar Problem Active 2016-02-17 Boy tadeo spondylosi spondylosi 00:32:37 l s s [place] (disorder) (disorder) Active Problem 02/17/2016 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 Interverte Intervert Problem Active 2016-02-17 Memoria bral disc ebral disc 00:32:37 l stenosis stenosis Richard n of neural of neural canal canal (disorder) (disorder) Active Problem 02/17/2016 [facility] BRACHIAL BRACHIAL Diagnosis Active 2012-10-07 Memoria NEURITIS NEURITIS 13:29:00 l NOS NOS Active Richard thompson [facility] CERV DISC CERV DISC Diagnosis Active 2012-10-07 Memoria DIS W DIS W 13:29:00 l MYELOPAT MYELOPAT Richard n Active [facility] ILLNESS, ILLNESS, Diagnosis Active 2016-08-23 Memoria UNSPECIFIE UNSPECIFIE 21:24:00 l D D Active Luke [facility] No known No known Disease [place] active active Health problems problems Allergies, Adverse Reactions, Alerts Allergy Allergy Status Severity Reaction(s) Onset Inactive Treating Comm ents Source Name Type Date Date Clinician dulaglut DA Active U [facility] diane 12-16 [place] 00:00: Orthope 00 dic Hospita l semaglut DA Active U [facility] diane 7-01 [place] 00:00: Orthope 00 dic Hospita l No Known DA Active U [facility] Allergie 1-15 [facility] 00:00: Orthope 00 dic Hospita l Dulaglut Allergy Active Arlin diane to Orthope substanc dic e Sports Medicin e NKFA NKFA Active Memoria l [place] NO KNOWN Drug Active Univers ALLERGIE Class ity of S [facility] STATINS- Allergy Active Myalgias Burnett ge HMG-COA [...] Exposure to 2022-07-25 2022-08-04 Not sure University of SARS-CoV-2 (event) 00:00:00 09:35:00 [facility] Tobacco use and 2021-11-28 2021-11-28 Smokeless tobacco [facility] exposure 00:00:00 00:00:00 non-user Cigarette 2021-11-28 2021-11-28 [facility] pack-years 00:00:00 00:00:00 Alcohol intake 2019-06-03 2019-06-03 Current drinker of Me thodist 00:00:00 00:00:00 alcohol (finding) Hospita l Social History 2016-01-11 [facility] 22:35:[facility] 22:35:39 Sex Assigned At [birth year] [facility] 00:00:00 00:00:00 [facility] Smoking Status Start Date Stop Date Source Never smoked tobacco [facility] Medications Ordered Filled Start Stop Current Ordering Indication Dosage Frequency Signature Comments Components Source Medication Medication Date Date Medication? Clinician (SIG) Name Name cinacalcet Yes [id number] TAKE 1 M ethodi (SENSIPAR) 3-[address] 30 MG 00:00: MOUTH Hospita tablet 00 TWICE A l DAY cinacalcet Yes [id number] TAKE 1 M ethodi (SENSIPAR) 3-[address] 30 MG 00:00: MOUTH Hospita tablet 00 TWICE A l DAY cinacalcet 2022-0 Yes [id number] TAKE 1 M ethodi (SENSIPAR) 3-[address] 30 MG 00:00: MOUTH Hospita tablet 00 TWICE A l DAY cinacalcet Yes [id number] TAKE 1 M ethodi (SENSIPAR) -[address] 30 MG 00:00: MOUTH Hospita tablet 00 TWICE A l DAY cinacalcet 2022- No [id number] TAKE 1 Methodi (SENSIPAR) 07-06-[address] 30 MG 00:00: 00:00 MOUTH Hospita tablet 00 :00 TWICE A l DAY cinacalcet 2022- No [id number] TAKE 1 Methodi (SENSIPAR) 07-06- TABLET BY st 30 MG 00:00: 00:00 MOUTH Hospita tablet 00 :00 TWICE A l DAY cinacalcet 2022- No [id number] TAKE 1 Methodi (SENSIPAR) 07-[address] 30 MG 00:00: 00:00 MOUTH Hospita tablet 00 :00 TWICE A l DAY cinacalcet 2021-06- No [id number] TAKE 1 Methodi (SENSIPAR) 08-[address] 30 MG 00:00: 18:04 MOUTH Hospita tablet 00 :09 TWICE A l DAY cinacalcet 2021-06- No [id number] TAKE 1 Methodi (SENSIPAR) 08-[address] 30 MG 00:00: 18:04 MOUTH Hospita tablet 00 :09 TWICE A l DAY cinacalcet 2021-06- No [id number] TAKE 1 Methodi (SENSIPAR) 08-[address] 30 MG 00:00: 18:04 MOUTH Hospita tablet 00 :09 TWICE A l DAY cinacalcet 2021-06- No [id number] TAKE 1 Methodi (SENSIPAR) 08-[address] 30 MG 00:00: 18:04 MOUTH Hospita tablet 00 :09 TWICE A l DAY cinacalcet 2021-06- No [id number] TAKE 1 Methodi (SENSIPAR) 07-[address] 30 MG 00:00: 00:00 MOUTH Hospita tablet 00 :00 TWICE A l DAY cinacalcet 2021-06- No [id number] TAKE 1 Methodi (SENSIPAR) 07-[address] 30 MG 00:00: 00:00 MOUTH Hospita tablet 00 :00 TWICE A l DAY cinacalcet 2021-06- No [id number] TAKE 1 Methodi (SENSIPAR) 07-[address] 30 MG 00:00: 00:00 MOUTH Hospita tablet 00 :00 TWICE A l DAY cinacalcet 2021-06- No [id number] TAKE 1 Methodi (SENSIPAR) 07-[address] 30 MG 00:00: 00:00 MOUTH Hospita tablet 00 :00 TWICE A l DAY cinacalcet 2021-06- No [id number] TAKE 1 Methodi (SENSIPAR) 0-11 05- TABLET BY st 30 MG 00:00: 00:00 MOUTH Hospita tablet 00 :00 TWICE A l DAY cinacalcet 2021-06- No [id number] TAKE 1 Methodi (SENSIPAR) 0-24 - TABLET BY st 30 MG 00:00: 00:00 MOUTH Hospita tablet 00 :00 TWICE A l DAY cinacalcet 2021-06- No [id number] TAKE 1 Methodi (SENSIPAR) 0-24 - TABLET BY st 30 MG 00:00: 00:00 MOUTH Hospita tablet 00 :00 TWICE A l DAY cinacalcet 2021-06- No [id number] TAKE 1 Methodi (SENSIPAR) 0-24 - TABLET [...] pravastatin Yes 20mg 20 mg. UT (Pravachol) 11-28 Health 20 MG 09:37: tablet 16 semaglutide Yes Ozempic UT (Ozempic, 6-13 0.25 mg or Heal th 0.25 or 0.5 09:37: 0.5 mg (2 MG/DOSE,) 2 16 mg/1.5 mL) MG/1.5ML subcutaneo solution us pen pen-injecto injector r INJECT 0.5 MG SUBCUTANEO USLY EVERY WEEK FOR 30 DAYS. valsartan Yes valsartan UT (Diovan) 6- 320 mg Health 320 MG 09:37: tablet tablet 16 TAKE 1 TABLET BY MOUTH EVERY DAY carvedilol Yes carvedilol U T (Coreg) 25 6-13 25 mg Health MG tablet 09:37: tablet 15 TAKE 1 TABLET BY MOUTH TWICE A DAY cloNIDine Yes clonidine UT (Catapres) 6 HCl 0.1 mg Hea lth 0.1 MG 09:37: tablet 1/2 tablet 15 TAB THREE TIMES DAILY cycloSPORIN Yes Restasis UT E 6-13 0.05 % eye Health (Restasis) 09:37: drops [...] 15 100 UNIT/ML injection HYDROcodone 2021- No [id number] 1{tbl} Q6H Take 1 UT -acetaminop 11-28 06-19 tablet by Manolo pathak (Adkins) 00:00: 04:59 mouth 5-325 MG 00 :00 every 6 tablet (six) hours if needed for severe pain for up to 5 days. cinacalcet Yes cinacalcet U T (Sensipar) - 30 mg Health 30 MG 00:00: tablet tablet 00 TAKE 1 TABLET BY MOUTH TWICE A DAY cinacalcet 2021- No [id number] TAKE 1 Methodi (SENSIPAR) 07-18 10-[address] 30 MG 00:00: 00:00 MOUTH Hospita tablet 00 :00 TWICE A l DAY cinacalcet 2021- No [id number] TAKE 1 Methodi (SENSIPAR) 07-18 10-[address] 30 MG 00:00: 00:00 MOUTH Hospita tablet 00 :00 TWICE A l DAY cinacalcet 2021- No [id number] TAKE 1 Methodi (SENSIPAR) 07-[address] 30 MG 00:00: 00:00 MOUTH Hospita tablet 00 :00 TWICE A l DAY cinacalcet 2021- No [id number] TAKE 1 Methodi (SENSIPAR) 07-[address] 30 MG 00:00: 00:00 MOUTH Hospita tablet 00 :00 TWICE A l DAY cinacalcet 2021- No [id number] TAKE 1 Methodi (SENSIPAR) 07-[address] 30 MG 00:00: 00:00 MOUTH Hospita tablet 00 :00 TWICE A l DAY cinacalcet 2021- No [id number] 30mg Q.5D Take 1 Methodi (SENSIPAR) 07-13 [...] 00 THREE l TIMES A DAY gabapentin Yes TAKE 1 Metho di (NEURONTIN) [...] 00 DAY, l DIAGNOSIS E11.9 TRADJENTA 5 2019-0 Yes 5mg QD Take 5 mg M ethodi mg tablet 6-[address] 00:00: daily. Hospita 00 l TRADJENTA 5 2019-0 Yes 5mg QD Take 5 mg M ethodi mg tablet 6-[address] 00:00: daily. Hospita 00 l TRADJENTA 5 2019-0 Yes 5mg QD Take 5 mg M ethodi mg tablet 6-[address] 00:00: daily. Hospita 00 l Tradjenta 5 Tradjenta 5 2019-0 No 5mg Tradjenta Arlin mg tablet 5 [...] 1 Method i XR 5-26 TABLET BY (GLUCOPHAGE 00:00: MOUTH Hospi ta -XR) 500 mg 00 EVERY DAY l 24 hr IN THE tablet EVENING WITH DINNER SOLIQUA Yes INJECT Methodi 100/33 100 5-13 UNDER THE unit-33 00:00: SKIN 30 Hospita mcg/mL 00 UNITS l insulin pen EVERY MORNING AND INCREASE TO 60 DIRECTED SOLIQUA Yes INJECT Methodi 100/33 100 5-13 UNDER THE unit-33 00:00: SKIN 30 Hospita mcg/mL 00 UNITS l insulin pen EVERY MORNING AND INCREASE TO 60 DIRECTED Soliqua Soliqua No Soliqua Azal ea 100/33 100 100/33 100 5-13 100/33 100 Orthope unit- unit-33 00:00: unit- dic mcg/mL mcg/mL 00 mcg/mL Sports subcutaneou subcutaneou subcutaneo Medicin s insulin s insulin us insulin e pen pen pen SOLIQUA Yes INJECT Methodi 100/33 100 5-13 UNDER THE unit-33 00:00: SKIN 30 Hospita mcg/mL 00 UNITS l insulin pen EVERY MORNING AND INCREASE TO 60 DIRECTED SOLIQUA Yes INJECT Methodi 100/33 100 5-13 UNDER THE unit-33 00:00: SKIN 30 Hospita mcg/mL 00 [...] dicin needed needed spasms as e needed Adkins 10 Adkins 10 No Adkins 10 A zalea mg-325 mg mg-325 mg [...] dicin needed needed spasms as e needed Adkins 10 Adkins 10 No Adkins 10 A zalea mg-325 mg mg-325 mg [...] dicin needed needed spasms as e needed Adkins 10 Adkins 10 No Adkins 10 A zalea mg-325 mg mg-325 mg [...] dicin needed needed spasms as e needed Adkins 10 Adkins 10 No Adkins 10 A zalea mg-325 mg mg-325 mg [...] dicin needed needed spasms as e needed Adkins 10 Adkins 10 No Adkins 10 A zalea mg-325 mg mg-325 mg 1-12 mg-325 mg Orthope tablet 1 Q tablet 1 Q 00:00: tablet 1 Q dic 4-6 HRS PRN 4-6 HRS PRN 00 4-6 HRS Sports PAIN PAIN PRN PAIN Medicin e Lipitor No Notes: Memoria 8-31 (Same As: l 02:00: Lipitor) Luke Lipitor No Notes: Memoria 8-31 (Same As: l 02:00: Lipitor) [place] Lipitor No Notes: Memoria 8-31 (Same As: l 02:00: Lipitor) Luke Lipitor No Notes: Memoria 8-31 (Same As: l 02:00: Lipitor) Luke Lipitor No Notes: Memoria 8-31 (Same As: l 02:00: Lipitor) [place] Lipitor No Notes: Memoria 8-31 (Same As: l 02:00: Lipitor) [place] Lipitor No Notes: Memoria 8-31 (Same As: l 02:00: Lipitor) [place] Acetaminoph Yes 1 tab, PO, Memoria en 325 MG / 8-29 Q6H, PRN l Hydrocodone 12:49: pain, # 90 [place] Bitartrate 00 tab, 0 10 MG Oral Refill(s), Tablet given to [Adkins patient ] morphine 15 Yes 15 mg [...] PRN l Hydrocodone 12:49: pain, # 90 [place] Bitartrate 00 tab, 0 10 MG Oral Refill(s), Tablet given to [Adkins patient ] morphine 15 Yes 15 mg [...] tab, PO, l tablet 12:49: TID, PRN [place] 00 as needed for muscle spasm, # 45 tab, 0 Refill(s) Acetaminoph Yes 1 tab, PO, Memoria en 325 MG / 8-29 Q6H, PRN l Hydrocodone 12:49: pain, # 90 [place] Bitartrate 00 tab, 0 10 MG Oral Refill(s), Tablet given to [Adkins patient ] morphine 15 Yes 15 mg [...] spasm, # 45 tab, 0 Refill(s) Acetaminoph 0 Yes 1 tab, PO, Memoria en 325 MG / 8-29 Q6H, PRN l Hydrocodone 12:49: pain, # 90 Luke Bitartrate 00 tab, 0 10 MG Oral Refill(s), Tablet given to [Adkins patient ] morphine 15 Yes 15 mg [...] PRN l Hydrocodone 12:49: pain, # 90 [place] Bitartrate 00 tab, 0 10 MG Oral Refill(s), Tablet given to [Adkins patient ] morphine 15 Yes 15 mg [...] 10 MG Oral Refill(s), Tablet given to [Adkins patient ] morphine 15 Yes 15 mg [...] PRN l Hydrocodone 12:49: pain, # 90 [place] Bitartrate 00 tab, 0 10 MG Oral Refill(s), Tablet given to [Adkins patient 10] morphine 15 Yes 15 mg = 1 [...] oria 8-28 not crush l 02:00: (Same [place] 00 as:Oramorp h SR, MS Contin) MS Contin No Notes: Do Mem oria 8-28 not crush l 02:00: (Same [place] 00 as:Oramorp h SR, MS Contin) MS Contin No Notes: Do Mem oria 8-28 not crush l 02:00: (Same [place] 00 as:Oramorp h SR, MS Contin) MS Contin No Notes: Do Mem oria 8-28 not crush l 02:00: (Same [place] 00 as:Oramorp h SR, MS Contin) MS Contin No Notes: Do Mem oria 8-28 not crush l 02:00: (Same [place] 00 as:Oramorp h SR, MS Contin) MS Contin No Notes: Do Mem oria 8-28 not crush l 02:00: (Same Luke 00 as:Oramorp h SR, MS Contin) MS Contin No Notes: Do Mem oria 8-28 not crush l 02:00: (Same [place] 00 as:Oramorp h SR, MS Contin) Lipitor No Notes: Memoria 8-27 (Same As: l 02:00: Lipitor) Luke Lipitor No Notes: Memoria 8-27 (Same As: l 02:00: Lipitor) [place] Lipitor No Notes: Memoria 8-27 (Same As: l 02:00: Lipitor) Luke 00 Lipitor No Notes: Memoria 8-27 (Same As: l 02:00: Lipitor) Luke Lipitor No Notes: Memoria 8-27 (Same As: l 02:00: Lipitor) [place] Lipitor No Notes: Memoria 8-27 (Same As: l 02:00: Lipitor) Luke Lipitor No Notes: Memoria 8-27 (Same As: l 02:00: Lipitor) [place] 00 Tylenol No Notes: Do Memor ia 8-26 not exceed l 23:00: 4 gm/day. [place] 00 (Same as: Tylenol) Tylenol No Notes: Do Memor ia 8-26 not exceed l 23:00: 4 gm/day. Luke 00 (Same as: Tylenol) Tylenol No Notes: Do Memor ia 8-26 not exceed l 23:00: 4 gm/day. [place] 00 (Same as: Tylenol) Tylenol No Notes: Do Memor ia 8-26 not exceed l 23:00: 4 gm/day. [place] 00 (Same as: Tylenol) Tylenol No Notes: Do Memor ia 8-26 not exceed l 23:00: 4 gm/day. [place] 00 (Same as: Tylenol) Tylenol No Notes: Do Memor ia 8- not exceed l 23:00: 4 gm/day. [place] (Same as: Tylenol) Tylenol No Notes: Do Memor ia 8- not exceed l 23:00: 4 gm/day. [place] (Same as: Tylenol) Bisacodyl No Notes: Memori a 8- (Same As: l 22:47: Dulcolax, Luke 00 Correctol) (Do Not Crush) "Do Not Crush" Bisacodyl No Notes: Memori a 8- (Same As: l 22:47: Dulcolax, [place] 00 Correctol) (Do Not Crush) "Do Not Crush" Bisacodyl No Notes: Memori a 8- (Same As: l 22:47: Dulcolax, [place] 00 Correctol) (Do Not Crush) "Do Not [...] Memoria 8- (Same as: l 22:00: Colace) Luke 00 (Do Not Crush) Docusate No Notes: Memoria 8-26 (Same as: l 22:00: Colace) [place] 00 (Do Not Crush) Docusate No Notes: Memoria 8-26 (Same as: l 22:00: Colace) Luke 00 (Do Not Crush) Docusate No Notes: Memoria 8-26 (Same as: l 22:00: Colace) [place] 00 (Do Not Crush) Docusate No Notes: Memoria 8-26 (Same as: l 22:00: Colace) Luke 00 (Do Not Crush) Docusate No Notes: Memoria 8-26 (Same as: l 22:00: Colace) [place] 00 (Do Not Crush) Docusate No Notes: Memoria 8-26 (Same as: l 22:00: Colace) Luke 00 (Do Not Crush) Simethicone No Notes: Boy tadeo 8-26 (Same as: l 21:04: Mylicon) Luke 00 Bisacodyl No Notes: Memori a 8-26 (Same As: l 21:04: Dulcolax, [place] 00 Bisco-Lax) Simethicone No Notes: Boy tadeo 8-26 (Same as: l 21:04: Mylicon) [place] 00 Bisacodyl 2015- No Notes: Memori a 8-26 (Same As: l 21:04: Dulcolax, [place] 00 Bisco-Lax) Simethicone 2015- No Notes: Boy tadeo 8-26 (Same as: l 21:04: Mylicon) Luke 00 Bisacodyl 2015- No Notes: Memori a 8-26 (Same As: l 21:04: Dulcolax, [place] 00 Bisco-Lax) Simethicone No Notes: Boy tadeo 8-26 (Same as: l 21:04: Mylicon) [place] 00 Bisacodyl 2015- No Notes: Memori a 8-26 (Same As: l 21:04: Dulcolax, Luke 00 Bisco-Lax) Simethicone No Notes: Boy tadeo 8-26 (Same as: l 21:04: Mylicon) Luke 00 Bisacodyl 2015- No Notes: Memori a 8-26 (Same As: l 21:04: Dulcolax, Luke 00 Bisco-Lax) Simethicone No Notes: Boy tadeo 8-26 (Same as: l 21:04: Mylicon) Luke Bisacodyl No Notes: Memori a 8-26 (Same As: l 21:04: Dulcolax, Luke 00 Bisco-Lax) Simethicone No Notes: Boy tadeo 8-26 (Same as: l 21:04: Mylicon) Luke Bisacodyl No Notes: Memori a 8-26 (Same As: l 21:04: Dulcolax, Luke 00 Bisco-Lax) Baclofen No Notes: Memoria 8-26 (Same As: l 14:00: Lioresal) Luke Baclofen No Notes: Memoria 8-26 (Same As: l 14:00: Lioresal) [place] Baclofen No Notes: Memoria 8-26 (Same As: [...] Memoria 8-25 (Same as: l 22:54: Dilaudid) [place] Dilaudid No Notes: Memoria 8-25 (Same as: l 22:54: Dilaudid) Luke Dilaudid No Notes: Memoria 8-25 (Same as: l 22:54: Dilaudid) [place] Dilaudid No Notes: Memoria 8-25 (Same as: l 22:54: Dilaudid) [place] 00 Dilaudid No Notes: Memoria 8 (Same as: l 22:54: Dilaudid) Luke 00 Dilaudid No Notes: Memoria 8 (Same as: l 22:54: Dilaudid) Luke 00 Acetaminoph No Notes: Boy tadeo en 325 MG / 02-09 (Same as: l Hydrocodone 22:52: Adkins Anitra nn Bitartrate 00 325/5) Do 5 MG Oral not exceed Tablet 4gm/day of [Adkins acetaminop 5/325] hen. Acetaminoph No Notes: Boy tadeo en 325 MG / 02-09 (Same as: l Hydrocodone 22:52: Adkins Anitra nn Bitartrate 00 325/5) Do 5 MG Oral not exceed Tablet 4gm/day of [Adkins acetaminop 5/325] hen. Acetaminoph No Notes: Boy tadeo en 325 MG / 02-09 (Same as: l Hydrocodone 22:52: Adkins Anitra nn Bitartrate 00 325/5) Do 5 MG Oral not exceed Tablet 4gm/day of [Adkins acetaminop 5/325] hen. Acetaminoph No Notes: Boy tadeo en 325 MG / 02-09 (Same as: l Hydrocodone 22:52: Adkins Anitra nn Bitartrate 00 325/5) Do 5 MG Oral not exceed Tablet 4gm/day of [Adkins acetaminop 5/325] hen. Acetaminoph No Notes: Boy tadeo en 325 MG / 02-09 (Same as: l Hydrocodone 22:52: Adkins Anitra nn Bitartrate 00 325/5) Do 5 MG Oral not exceed Tablet 4gm/day of [Adkins acetaminop 5/325] hen. Acetaminoph No Notes: Boy tadeo en 325 MG / 02-09 (Same as: l Hydrocodone 22:52: Adkins Anitra nn Bitartrate 00 325/5) Do 5 MG Oral not exceed Tablet 4gm/day of [Adkins acetaminop 5/325] hen. Acetaminoph No Notes: Boy tadeo en 325 MG / 02-09 (Same as: l Hydrocodone 22:52: Adkins Anitra nn Bitartrate 00 325/5) Do 5 MG Oral not exceed Tablet 4gm/day of [Adkins acetaminop 5/325] hen. tradellanta 2015-0 No tradellanta, moria 8-24 5 mg, 1 l 20:00: tab, Drug Luke 00 form: MISC, Route: PO, Daily, 02/09/16 15:00:00 CDT, Duration: 30 day, Stop date: 03/10/16 9:00:00 CDT tradjenta No tradellanta, moria 8-24 5 mg, 1 l 20:00: tab, Drug Luke 00 form: MISC, Route: PO, Daily, 02/09/16 15:00:00 CDT, Duration: 30 day, Stop date: 03/10/16 9:00:00 CDT tradjenta No tradjenta, moria 8-24 5 mg, 1 l 20:00: tab, Drug Luke form: MISC, Route: PO, Daily, 02/09/16 15:00:00 CDT, Duration: 30 day, Stop date: 03/10/16 9:00:00 CDT tradjenta 0 No tradjenta, moria 8-24 5 mg, 1 l 20:00: tab, Drug [place] 00 form: MISC, Route: PO, Daily, 02/09/16 15:00:00 CDT, Duration: 30 day, Stop date: 03/10/16 9:00:00 CDT tradjenta 0 No tradjenta, moria 8-24 5 mg, 1 l 20:00: tab, Drug [place] 00 form: MISC, Route: PO, Daily, 02/09/16 15:00:00 CDT, Duration: 30 day, Stop date: 03/10/16 9:00:00 CDT tradjenta 2015-0 No tradjenta, moria 8-24 5 mg, 1 l 20:00: tab, Drug Luke 00 form: MISC, Route: PO, Daily, 02/09/16 15:00:00 CDT, Duration: 30 day, Stop date: 03/10/16 9:00:00 CDT tradjenta 2016-0 No martaMe moria 8-24 5 mg, 1 l 20:00: [...] 00 30 tab, 0 [Crestor] Refill(s) Sodium 2016-0 No 25 mL, Memoria Chloride 8-24 Route: IV, l 0.9% IV 15:15: Start date: 02/09/16 10:15:00 CDT, Duration: 30 day, Stop date: 03/10/16 10:14:00 CDT, PRN Line Flush BD Normal 2015-0 No Notes: Memori a Saline 8-24 (Same as: l Flush 15:15: BD [place] Posiflush) Sodium 2016-0 No 25 mL, Memoria Chloride 8-24 Route: IV, l 0.9% IV 15:15: Start date: 02/09/16 10:15:00 CDT, Duration: 30 day, Stop date: 03/10/16 10:14:00 CDT, PRN Line Flush BD Normal 2015-0 No Notes: Memori a Saline 8-24 (Same as: l Flush 15:15: BD [place] Posiflush) Sodium 2015-0 No 25 mL, Memoria Chloride 8- Route: IV, l 0.9% IV 15:15: date: 02/09/16 10:15:00 CDT, Duration: 30 day, Stop date: 03/10/16 10:14:00 CDT, PRN Line Flush BD Normal 0 No Notes: Memori a Saline 8-24 (Same as: l Flush 15:15: BD [place] Posiflush) Sodium 2015-0 No 25 mL, Memoria Chloride 8 Route: IV, l 0.9% IV 15:15: Start date: 02/09/16 10:15:00 CDT, Duration: 30 day, Stop date: 03/10/16 10:14:00 CDT, PRN Line Flush BD Normal 2015-0 No Notes: Memori a Saline 8-24 (Same as: l Flush 15:15: BD [place] Posiflush) Sodium 2015-0 No 25 mL, Memoria Chloride 8-24 Route: IV, l 0.9% IV 15:15: Start date: 02/09/16 10:15:00 CDT, Duration: 30 day, Stop date: 03/10/16 10:14:00 CDT, PRN Line Flush BD Normal 2015-0 No Notes: Memori a Saline 8-24 (Same as: l Flush 15:15: BD [place] Posiflush) Sodium 2015-0 No 25 mL, Memoria Chloride 8-24 Route: IV, l 0.9% IV 15:15: Start [...] 8-24 (Same as: l Tablet 14:00: Lasix) [place] cause GI upset. Give with food or milk. Vitamin D3 No Notes: Memor ia 8-24 Same as : l 14:00: Vitamin D3 Amlodipine No Notes: Memor ia 8-24 (Same as: l 14:00: Norvasc) Miralax No Notes: Memoria 8-24 Dissolve l 14:00: in 8 oz of [place] 00 water or juice. (Same as: Miralax) [...] Dissolve l 14:00: in 8 oz of [place] 00 water or juice. (Same as: Miralax) [...] 8-24 Route: PO, l 14:00: Drug form: [place] 00 TAB, Daily, Dosing Weight 89.545, kg, Start date: 02/09/16 9:00:00 CDT Furosemide No Notes: Memor ia 20 MG Oral 8-24 (Same as: l Tablet 14:00: Lasix) [place] cause GI upset. Give with food or milk. Vitamin D3 No Notes: Memor ia 8-24 Same as : l 14:00: Vitamin D3 Amlodipine No Notes: Memor ia 8-24 (Same as: l 14:00: Norvasc) [place] 00 Miralax No Notes: Memoria 8-24 Dissolve l 14:00: in 8 oz of [place] 00 water or juice. (Same as: Miralax) Spironolact 0 No Notes: Boy tadeo one 8-24 (Same As: l 14:00: Aldactone) irbesartan No Notes: Memor ia 8-24 (Same l 14:00: as:Avapro) Tradjenta 0 No 5 mg, Memoria 8-24 Route: PO, [...] Dissolve l 14:00: in 8 oz of [place] 00 water or juice. (Same as: Miralax) Spironolact No Notes: Boy tadeo one 8-24 (Same As: l 14:00: Aldactone) irbesartan No Notes: Memor ia 8-24 (Same l 14:00: as:Avapro) Tradjenta 0 No 5 mg, Memoria 8-24 Route: PO, l 14:00: Drug form: [place] 00 TAB, Daily, Dosing Weight 89.545, kg, Start date: 02/09/16 9:00:00 CDT Furosemide No Notes: Memor ia 20 MG Oral 8-24 (Same as: l Tablet 14:00: Lasix) [place] cause GI upset. Give with food or milk. Vitamin D3 No Notes: Memor ia 8-24 Same as : l 14:00: Vitamin D3 Amlodipine No Notes: Memor ia 8-24 (Same as: l 14:00: Norvasc) Miralax 2015-0 No Notes: Memoria 8-24 Dissolve l 14:00: in 8 oz of [place] 00 water or juice. (Same as: Miralax) Insulin, 0 No Notes: Memoria Aspart, 8-24 Roll in l Human 06:52: palms of [place] 00 hands gently; Do not shake vigorously . (Same as: NovoLOG) "single patient use only" WASTE: F/P - Black; E - Municipal Trash Bin Stable for 28 days at room temperatur e. Expires in days from ____Date Glucagon 0 No 1 mg, Memoria 8-24 Route: IM, l 06:52: Drug form: [place] 00 PDR/INJ, PRN, Dosing Weight 89.545, kg, [...] day, Stop date: 03/10/16 1:51:00 CDT Insulin, 0 No Notes: Memoria Aspart, 8-24 Roll in l Human 06:52: palms of [place] 00 hands gently; Do not shake vigorously [...] 8-24 mL, Route: l 06:52: IVP, Drug [place] 00 Form: INJ, Dosing Weight 89.545, kg, PRN, PRN Blood Glucose Results, Start date: 02/09/16 1:52:00 CDT, Duration: 30 day, Stop date: 03/10/16 1:51:00 CDT Insulin, 2016-0 No Notes: Memoria Aspart, 8-24 Roll in l Human 06:52: palms of [place] 00 hands gently; Do not shake vigorously . (Same as: NovoLOG) "single patient use only" WASTE: F/P - Black; E - Municipal Trash Bin Stable for 28 days at room temperatur e. Expires in days from ____Date Glucagon 2016-0 No 1 mg, Memoria 8-24 Route: IM, l 06:52: Drug form: [place] 00 PDR/INJ, PRN, Dosing Weight 89.545, kg, PRN Blood Glucose Results, Start date: 02/09/16 1:52:00 CDT, Duration: 30 day, Stop date: 03/10/16 1:51:00 CDT Dextrose 2015-0 No 25 gm, 50 Boy tadeo 50% Syringe 8-24 mL, Route: l 06:52: IVP, Drug [place] 00 Form: INJ, Dosing Weight 89.545, kg, PRN, PRN Blood Glucose Results, Start date: 02/09/16 1:52:00 CDT, Duration: 30 day, Stop date: 03/10/16 1:51:00 CDT Insulin, 2016-0 No Notes: Memoria Aspart, 8-24 Roll in l Human 06:52: palms of [place] 00 hands gently; Do not shake vigorously . (Same as: NovoLOG) "single patient use only" WASTE: F/P - Black; E - Municipal Trash Bin Stable for 28 days at room temperatur e. Expires in days from ____Date Glucagon 2016-0 No 1 mg, Memoria 8-24 Route: IM, l 06:52: Drug form: [place] 00 PDR/INJ, PRN, Dosing Weight 89.545, kg, PRN Blood Glucose Results, Start date: 02/09/16 1:52:00 CDT, Duration: 30 day, Stop date: 03/10/16 1:51:00 CDT Dextrose 2015-0 No 25 gm, 50 Boy tadeo 50% Syringe 8-24 mL, Route: l 06:52: IVP, Drug [place] 00 Form: INJ, Dosing Weight 89.545, kg, PRN, PRN Blood Glucose Results, Start date: 02/09/16 1:52:00 CDT, Duration: 30 day, Stop date: 03/10/16 1:51:00 CDT Insulin, 2015-0 No Notes: Memoria Aspart, 8-24 Roll in l Human 06:52: palms of [place] 00 hands gently; Do not shake vigorously . (Same as: NovoLOG) "single patient use only" WASTE: F/P - Black; E - Municipal Trash Bin Stable for 28 days at room temperatur e. Expires in days from ____Date Glucagon 2015-0 No 1 mg, Memoria 8-24 Route: IM, l 06:52: Drug form: [place] 00 PDR/INJ, PRN, Dosing Weight 89.545, kg, [...] 824 Route: IM, l 06:52: Drug form: Luke [...] ia 8-24 Give with l 02:00: food. [place] (Same As: Coreg) [facility] No Route: PO, Boy tadeo 8-24 Drug form: l 02:00: TAB, [place] 00 Bedtime, Dosing Weight 89.545, kg, Start [...] ia 8-24 Give with l 02:00: food. [place] (Same As: Coreg) Crestor No Route: PO, [...] ia 8-24 Give with l 02:00: food. [place] 00 (Same As: Coreg) Crestor No Route: PO, Boy tadeo 8-24 Drug form: l 02:00: TAB, [place] 00 Bedtime, Dosing Weight 89.545, kg, Start [...] ia 8-24 Give with l 02:00: food. [place] 00 (Same As: Coreg) Crestor No Route: PO, Boy tadeo 8-24 Drug form: l 02:00: TAB, [place] 00 Bedtime, Dosing Weight 89.545, kg, Start [...] 02:00: food. Luke 00 (Same As: Coreg) [facility] No Route: PO, Boy tadeo 8-24 Drug form: l 02:00: TAB, [place] 00 Bedtime, Dosing Weight 89.545, kg, Start [...] ia 8-24 Give with l 02:00: food. [place] 00 (Same As: Coreg) [facility] No Route: PO, Boy tadeo 8-24 [...] PO, l MG Oral 23:47: BID, 0 [place] Capsule 00 Refill(s) [Colace] Linagliptin No 5 mg = 1 Me moria 5 MG Oral 8-23 tab, PO, l Tablet 23:47: Daily, 0 [place] [Tradjenta] 00 Refill(s) 3 ML Yes 50 units, Memoria Insulin 8-23 SUB-Q, l Glargine 23:47: Bedtime, 0 Her kowalski 100 UNT/ML 00 Refill(s) Prefilled Syringe [Lantus] glimepiride Yes 4 mg, PO, M emoria 8-23 Daily, 0 l 23:47: Refill(s) [place] 00 Docusate Yes 100 mg = 1 Mem oria Sodium 100 8-23 cap, PO, l MG Oral 23:47: BID, 0 [place] Capsule 00 Refill(s) [Colace] Linagliptin No 5 [...] PO, l MG Oral 23:47: BID, 0 [place] Capsule 00 Refill(s) [Colace] Linagliptin No 5 [...] tab, PO, l Tablet 23:47: Daily, 0 [place] [Tradjenta] 00 Refill(s) 3 ML Yes 50 units, Memoria Insulin 8-23 SUB-Q, l Glargine 23:47: Bedtime, 0 Her kowalski 100 UNT/ML 00 Refill(s) Prefilled Syringe [Lantus] glimepiride Yes 4 mg, PO, M emoria 8-23 Daily, 0 l 23:47: Refill(s) [place] Docusate Yes 100 mg = 1 Mem oria Sodium 100 8-23 cap, PO, l MG Oral 23:47: BID, 0 [place] Capsule 00 Refill(s) [Colace] Linagliptin No 5 mg = 1 Me moria 5 MG Oral 8-23 tab, PO, l Tablet 23:47: Daily, 0 [place] [Tradjenta] 00 Refill(s) 3 ML Yes 50 units, Memoria Insulin 8-23 SUB-Q, l Glargine 23:47: Bedtime, 0 Her kowalski 100 UNT/ML 00 Refill(s) Prefilled Syringe [Lantus] glimepiride 0 Yes 4 mg, PO, M emoria 8-23 [...] glimepiride Yes 4 mg, PO, M emoria 823 Daily, 0 l 23:47: Refill(s) [place] 00 Docusate Yes 100 mg = 1 Mem oria Sodium 100 8-23 cap, PO, l MG Oral 23:47: BID, 0 [place] Capsule 00 Refill(s) [Colace] Linagliptin No 5 mg = 1 Me moria 5 MG Oral 8-23 tab, PO, l Tablet 23:47: Daily, 0 [place] [Tradjenta] 00 Refill(s) 3 ML Yes 50 units, Memoria Insulin 8-23 SUB-Q, l Glargine 23:47: Bedtime, 0 Her kowalski 100 UNT/ML 00 Refill(s) Prefilled Syringe [Lantus] glimepiride Yes 4 mg, PO, M emoria 823 Daily, 0 l 23:47: Refill(s) [place] 00 Clonidine No 0.1 mg = 1 Me moria Hydrochlori 8-23 tab, PO, l de 0.1 MG 23:40: PRN [place] Oral Tablet 00 Hypertensi on, 0 Refill(s) Clonidine No 0.1 mg = 1 Me moria Hydrochlori 8-23 tab, PO, l de 0.1 MG 23:40: PRN [place] Oral Tablet 00 Hypertensi on, 0 Refill(s) Clonidine No 0.1 mg = 1 Me moria Hydrochlori 8-23 tab, PO, l de 0.1 MG 23:40: PRN [place] Oral Tablet 00 Hypertensi on, 0 Refill(s) Clonidine No 0.1 mg = 1 Me moria Hydrochlori 8-23 tab, PO, l de 0.1 MG 23:40: PRN [place] Oral Tablet 00 Hypertensi on, 0 Refill(s) Clonidine No 0.1 mg = 1 Me moria Hydrochlori 8-23 tab, PO, l de 0.1 MG 23:40: PRN [place] Oral Tablet 00 Hypertensi on, 0 Refill(s) Clonidine No 0.1 mg = 1 Me moria Hydrochlori 8-23 tab, PO, l de 0.1 MG 23:40: PRN [place] Oral Tablet 00 Hypertensi on, 0 Refill(s) Clonidine No 0.1 mg = 1 Me moria Hydrochlori 8-23 tab, PO, l de 0.1 MG 23:40: PRN [place] Oral Tablet 00 Hypertensi on, 0 Refill(s) Ancef + No Notes: Memoria sodium 8-23 (Same As: l chloride 23:00: Ancef, [place] 0.9% INJ 00 Kefzol) 100 mL MEDICATION WASTE Product Size: 1000 mg Product Wasted: ___ mg Ancef + No Notes: Memoria sodium 8-23 (Same As: l chloride 23:00: Ancef, [place] 0.9% INJ 00 Kefzol) 100 mL MEDICATION WASTE Product Size: 1000 mg Product Wasted: ___ mg Ancef + No Notes: Memoria sodium 8-23 (Same As: l chloride 23:00: Ancef, [place] 0.9% INJ 00 Kefzol) 100 mL MEDICATION WASTE Product Size: 1000 mg Product Wasted: ___ mg Ancef + No Notes: Memoria sodium 8-23 (Same As: l chloride 23:00: Ancef, [place] 0.9% INJ 00 Kefzol) 100 mL MEDICATION WASTE Product Size: 1000 mg Product Wasted: ___ mg Ancef + No Notes: Memoria sodium 8-23 (Same As: l chloride 23:00: Ancef, [place] 0.9% INJ 00 Kefzol) 100 mL MEDICATION WASTE Product Size: 1000 mg Product Wasted: ___ mg Ancef + No Notes: Memoria sodium 8-23 (Same As: l chloride 23:00: Ancef, [place] 0.9% INJ 00 Kefzol) 100 mL MEDICATION WASTE Product Size: 1000 mg Product Wasted: ___ mg Ancef + No Notes: Memoria sodium 8-23 (Same As: l chloride 23:00: Ancef, [place] 0.9% INJ 00 Kefzol) 100 mL MEDICATION WASTE Product Size: 1000 mg Product Wasted: ___ mg Docusate No Notes: Memoria Sodium 100 8-23 (Same as: l MG Oral 22:00: Colace) [place] Capsule 00 (Do Not [Colace] Crush) Docusate No Notes: Memoria Sodium 100 8-23 (Same as: l MG Oral 22:00: Colace) [place] Capsule 00 (Do Not [Colace] Crush) Docusate No Notes: Memoria Sodium 100 8-23 (Same as: l MG Oral 22:00: Colace) [place] Capsule 00 (Do Not [Colace] Crush) Docusate No Notes: Memoria Sodium 100 8-23 (Same as: l MG Oral 22:00: Colace) [place] Capsule 00 (Do Not [Colace] Crush) Docusate No Notes: Memoria Sodium 100 8-23 (Same as: l MG Oral 22:00: Colace) [place] Capsule 00 (Do Not [Colace] Crush) Docusate No Notes: Memoria Sodium 100 8-23 (Same as: l MG Oral 22:00: Colace) [place] Capsule 00 (Do Not [Colace] Crush) Docusate No Notes: Memoria Sodium 100 8-23 (Same as: l MG Oral 22:00: Colace) [place] Capsule 00 (Do Not [Colace] Crush) [facility],000 mg, Memor ia 02-07 Route: IV, l 19:25: ONCE, [place] 00 Dosing Weight 89, kg, Start date: 02/08/16 14:25:00 CDT, Stop date: 02/08/16 14:25:00 CDT [facility] 2016-[facility] No 1,000 mg, Memor ia 02-07 Route: IV, l 19:25: ONCE, Dosing Weight 89, kg, Start date: 02/08/16 14:25:00 CDT, Stop date: 02/08/16 14:25:00 CDT Ofirmev 2016-0 No 1,000 mg, Memor ia 02-07 Route: IV, l 19:25: ONCE, Dosing Weight 89, kg, Start date: 02/08/16 14:25:00 CDT, Stop date: 02/08/16 14:25:00 CDT Ofirmev 2016-0 No 1,000 mg, Memor ia 02-07 Route: IV, l 19:25: ONCE, Dosing Weight 89, kg, Start date: 02/08/16 14:25:00 CDT, Stop date: 02/08/16 14:25:00 CDT Ofirmev 2016-0 No 1,000 mg, Memor ia 02-07 Route: IV, l 19:25: ONCE, Dosing Weight 89, kg, Start date: 02/08/16 14:25:00 CDT, Stop date: 02/08/16 14:25:00 CDT Ofirmev 0 No 1,000 mg, Memor ia 02-07 Route: IV, l 19:25: ONCE, Dosing Weight 89, kg, Start date: 02/08/16 14:25:00 CDT, Stop date: 02/08/16 14:25:00 CDT Ofirmev 2015-0 No 1,000 mg, Memor ia 02-07 Route: IV, l 19:25: ONCE, Dosing Weight 89, kg, Start date: 02/08/16 14:25:00 CDT, Stop date: 02/08/16 14:25:00 CDT Ondansetron No Notes: Boy tadeo 02-07 (Same as: l 18:22: Zofran) MEDICATION WASTE Product Size: 4 mg Product Wasted: ___ mg Flumazenil No Notes: Memor ia 02-07 (Same as: l 18:22: Romazicon) Naloxone 0 No Notes: Memoria 8-23 Same as l 18:22: Narcan [place] Morphine No Notes: Memoria 8-23 (Same l 18:22: as:MORPhin [place] 00 e Sulfate) Sodium No 1,000 mL, Memori a Chloride 02-07 Rate: 125 l 0.154 18:22: ml/hr, [place] MEQ/ML 00 Infuse Injectable over: 8 Solution hr, Route: IV, Dosing Weight 89.545 kg, Total Volume: 1,000, Start date: 02/08/16 13:22:00 CDT, Duration: 30 day, Stop date: 03/09/16 13:21:00 CDT Ondansetron No Notes: Boy tadeo 8- (Same as: l 18:22: Zofran) [place] 00 MEDICATION WASTE Product Size: 4 mg Product Wasted: ___ mg Flumazenil No Notes: Memor ia 02-07 (Same as: l 18:22: Romazicon) [place] Naloxone No Notes: Memoria 8 Same as l 18:22: Narcan [place] Morphine No Notes: Memoria 8- (Same l 18:22: as:MORPhin [place] 00 e Sulfate) Sodium No 1,000 mL, Memori a Chloride 02-07 Rate: 125 l 0.154 18:22: ml/hr, [place] MEQ/ML 00 Infuse Injectable over: 8 Solution [...] 18:22: Romazicon) [place] Naloxone No Notes: Memoria 8- Same as l 18:22: Narcan [place] 00 Morphine No Notes: Memoria 8-23 (Same l 18:22: as:MORPhin [place] 00 e Sulfate) Sodium 2016 No 1,000 mL, Memori a Chloride 8- Rate: 125 l 0.154 18:22: ml/hr, [place] MEQ/ML 00 Infuse Injectable over: 8 Solution [...] ia 02-07 (Same as: l 18:22: Romazicon) [place] Naloxone No Notes: Memoria 8 Same as l 18:22: Narcan [place] Morphine No Notes: Memoria 8-23 (Same l 18:22: as:MORPhin [place] 00 e Sulfate) Sodium No 1,000 mL, Memori a Chloride 02-07 Rate: 125 l 0.154 18:22: ml/hr, [place] MEQ/ML 00 Infuse Injectable over: 8 Solution hr, Route: IV, Dosing Weight 89.545 kg, Total Volume: 1,000, Start date: 02/08/16 13:22:00 CDT, Duration: 30 day, Stop date: 03/09/16 13:21:00 CDT Ondansetron No Notes: Boy tadeo 8-23 (Same as: l 18:22: Zofran) [place] 00 MEDICATION WASTE Product Size: 4 mg Product Wasted: ___ mg Flumazenil No Notes: Memor ia 8-23 (Same as: l 18:22: Romazicon) [place] 00 Naloxone No Notes: Memoria 8-23 Same as l 18:22: Narcan [place] 00 Morphine No Notes: Memoria 8-23 (Same l 18:22: as:MORPhin [place] 00 e Sulfate) Sodium No 1,000 mL, Memori a Chloride 02-07 Rate: 125 l 0.154 18:22: ml/hr, [place] MEQ/ML 00 Infuse Injectable over: 8 Solution hr, Route: IV, Dosing Weight 89.545 kg, Total Volume: 1,000, Start date: 02/08/16 13:22:00 CDT, Duration: 30 day, Stop date: 03/09/16 13:21:00 CDT Ondansetron No Notes: Boy tadeo 8-23 (Same as: l 18:22: Zofran) [place] 00 MEDICATION WASTE Product Size: 4 mg Product Wasted: ___ mg Flumazenil No Notes: Memor ia 8- (Same as: l 18:22: Romazicon) [place] 00 Naloxone No Notes: Memoria 8 Same as l 18:22: Narcan Morphine No Notes: Memoria 8- (Same l 18:22: as:MORPhin [place] 00 e Sulfate) Sodium No 1,000 mL, Memori a Chloride 02-07 Rate: 125 l 0.154 18:22: ml/hr, [place] MEQ/ML 00 Infuse Injectable over: 8 Solution hr, Route: IV, Dosing Weight 89.545 kg, Total Volume: 1,000, Start date: 02/08/16 13:22:00 CDT, Duration: 30 day, Stop date: 03/09/16 13:21:00 CDT Ondansetron No Notes: Boy tadeo 8-23 (Same as: l 18:22: Zofran) [place] 00 MEDICATION WASTE Product Size: 4 mg Product Wasted: ___ mg Flumazenil No Notes: Memor ia 8-23 (Same as: l 18:22: Romazicon) [place] 00 Naloxone No Notes: Memoria 8-23 Same as l 18:22: Narcan Morphine No Notes: Memoria 8-23 (Same l 18:22: as:MORPhin [place] 00 e Sulfate) Sodium No 1,000 mL, Memori a Chloride 8-23 Rate: 125 l 0.154 18:22: ml/hr, [place] MEQ/ML 00 Infuse Injectable over: 8 Solution hr, Route: IV, Dosing Weight 89.545 kg, Total Volume: 1,000, Start date: 02/08/16 13:22:00 CDT, Duration: 30 day, Stop date: 03/09/16 13:21:00 CDT Morphine No Notes: Memoria - Dose: l 18:00: Delay: [place] 00 Basal rate: 4hr limit: (Same as:[facility]- [place]) Morphine No Notes: Memoria - Dose: l 18:00: Delay: [place] 00 Basal rate: 4hr limit: (Same as:[facility]- [place]) Morphine No Notes: Memoria - Dose: l 18:00: Delay: [place] 00 Basal rate: 4hr limit: (Same as:[facility]- [place]) Morphine No Notes: Memoria - Dose: l 18:00: Delay: [place] 00 Basal rate: 4hr limit: (Same as:[facility]) Morphine No Notes: Memoria - Dose: l 18:00: Delay: [place] 00 Basal rate: 4hr limit: (Same as:[facility]) Morphine No Notes: Memoria - Dose: l 18:00: Delay: [place] 00 Basal rate: 4hr limit: (Same as:[facility]) Morphine No Notes: Memoria - Dose: l 18:00: Delay: [place] 00 Basal rate: 4hr limit: (Same as:[facility]) Naloxone No Notes: Memoria - Same as l 17:53: Narcan [place] 00 Acetaminoph No Notes: Do M emoria en 325 MG / 02-07 not exceed l Hydrocodone 17:53: 4gm/day of [place] Bitartrate 00 acetaminop 10 MG Oral hen. (Same Tablet as: Adkins [Adkins 325/10) 10/325] Zofran No Notes: Memoria - (Same as: l 17:53: Zofran) [place] 00 MEDICATION WASTE Product Size: 4 mg Product Wasted: ___ mg Naloxone No Notes: Memoria 8- Same as l 17:53: Narcan [place] Acetaminoph No Notes: Do M emoria en 325 MG / 02-07 not exceed l Hydrocodone 17:53: 4gm/day of [place] Bitartrate 00 acetaminop 10 MG Oral hen. (Same Tablet as: Adkins [Adkins 325/10) ] Zofran No Notes: Memoria 8 (Same as: l 17:53: Zofran) [place] 00 MEDICATION WASTE Product Size: 4 mg Product Wasted: ___ mg Naloxone No Notes: Memoria 8 Same as l 17:53: Narcan [place] Acetaminoph No Notes: Do M emoria en 325 MG / 02-07 not exceed l Hydrocodone 17:53: 4gm/day of [place] Bitartrate 00 acetaminop 10 MG Oral hen. (Same Tablet as: Adkins [Adkins 325/10) 10325] Zofran No Notes: Memoria 8 (Same as: l 17:53: Zofran) [place] 00 MEDICATION WASTE Product Size: 4 mg Product Wasted: ___ mg Naloxone No Notes: Memoria 8- Same as l 17:53: Narcan [place] Acetaminoph No Notes: Do M emoria en 325 MG / 02-07 not exceed l Hydrocodone 17:53: 4gm/day of [place] Bitartrate 00 acetaminop 10 MG Oral hen. (Same Tablet as: Adkins [Adkins 325/10) 10325] Zofran No Notes: Memoria 8- (Same as: l 17:53: Zofran) [place] 00 MEDICATION WASTE Product Size: 4 mg Product Wasted: ___ mg Naloxone No Notes: Memoria 8- Same as l 17:53: Narcan [place] Acetaminoph No Notes: Do M emoria en 325 MG / 02-07 not exceed l Hydrocodone 17:53: 4gm/day of [place] Bitartrate 00 acetaminop 10 MG Oral hen. (Same Tablet as: Adkins [Adkins 325/10) 10/325] Zofran No Notes: Memoria 02-07 (Same as: l 17:53: Zofran) [place] 00 MEDICATION WASTE Product Size: 4 mg Product Wasted: ___ mg Naloxone No Notes: Memoria 02-07 Same as l 17:53: Narcan [place] 00 Acetaminoph No Notes: Do M emoria en 325 MG / 02-07 not exceed l Hydrocodone 17:53: 4gm/day of [place] Bitartrate 00 acetaminop 10 MG Oral hen. (Same Tablet as: Adkins [Adkins 325/10) 10325] Zofran No Notes: Memoria 02-07 (Same as: l 17:53: Zofran) [place] 00 MEDICATION WASTE Product Size: 4 mg Product Wasted: ___ mg Naloxone No Notes: Memoria 02-07 Same as l 17:53: Narcan [place] 00 Acetaminoph No Notes: Do M emoria en 325 MG / 02-07 not exceed l Hydrocodone 17:53: 4gm/day of [place] Bitartrate 00 acetaminop 10 MG Oral hen. (Same Tablet as: Adkins [Adkins 325/10) 10325] Zofran No Notes: Memoria 02-07 (Same as: l 17:53: Zofran) [place] 00 MEDICATION WASTE Product Size: 4 mg [...] Flexeril) Diphenhydra No Notes: Boy tadeo mine 8- (Same as: l 17:52: Benadryl) phenol No Notes: Memoria 02-07 Chlorasept l 17:52: ic [place] (Same as: Chlorasept ic, Sore Throat [place]) WASTE: F/P - Black; E - Municipal Trash Bin Robaxin No Notes: Memoria 8- (Same l 17:52: as:Robaxin ) Lactated No [...] Notes: Memoria 02-07 Chlorasept l 17:52: ic [place] (Same as: Chlorasept ic, Sore Throat [place]) WASTE: F/P - Black; E - Municipal Trash Bin Robaxin No Notes: Memoria 8- (Same l 17:52: as:Robaxin ) Lactated No 1,000 mL, Boy tadeo Ringers 02-07 Rate: 75 l 1,000 mL 17:52: ml/hr, [place] 00 Infuse over: 13.3 hr, Route: IV, Dosing Weight 89.545 kg, Total Volume: 1,000, Start date: 02/08/16 12:52:00 CDT, Duration: 30 day, Stop date: 03/09/16 12:51:00 CDT Flexeril No Notes: Memoria 8-23 (Same As: l 17:52: Flexeril) Diphenhydra No Notes: Boy tadeo mine 8- (Same as: l 17:52: Benadryl) phenol No Notes: Memoria 8 Chlorasept l 17:52: ic [place] (Same as: Chlorasept ic, Sore Throat [place]) WASTE: F/P - Black; E - Municipal Trash Bin Robaxin No Notes: Memoria 8- (Same l 17:52: as:Robaxin ) Lactated No 1,000 mL, Boy tadeo Ringers 8 Rate: 75 l 1,000 mL 17:52: ml/hr, [place] 00 Infuse over: 13.3 hr, Route: IV, Dosing Weight 89.545 kg, Total Volume: 1,000, Start date: 02/08/16 12:52:00 CDT, Duration: 30 day, Stop date: 03/09/16 12:51:00 CDT Flexeril No Notes: Memoria 8- (Same As: l 17:52: Flexeril) Diphenhydra No Notes: Boy tadeo mine 8- (Same as: l 17:52: Benadryl) phenol No Notes: Memoria 8 Chlorasept l 17:52: ic [place] (Same as: Chlorasept ic, Sore Throat [place]) WASTE: F/P - Black; E - Municipal Trash Bin Robaxin No Notes: Memoria 8-23 (Same l 17:52: as:Robaxin ) Lactated No 1,000 mL, Boy tadeo Ringers 8 Rate: 75 l 1,000 mL 17:52: ml/hr, [place] Infuse over: 13.3 hr, Route: IV, Dosing [...] Notes: Memoria 02-07 Chlorasept l 17:52: ic [place] (Same as: Chlorasept ic, Sore Throat [place]) WASTE: F/P - Black; E - [facility] Trash Bin Flexeril No Notes: [facility] - (Same As: l 17:52: Flexeril) Diphenhydra No Notes: Boy tadeo mine 02-07 (Same as: l 17:52: Benadryl) phenol No Notes: Memoria 02-07 Chlorasept l 17:52: ic [place] (Same as: Chlorasept ic, Sore Throat [place]) WASTE: F/P - Black; E - [facility] Trash Bin Diphenhydra No Notes: Boy tadeo mine - (Same as: l 17:52: Benadryl) phenol No Notes: Memoria 02-07 Chlorasept l 17:52: ic [place] (Same as: Chlorasept ic, Sore Throat [place]) WASTE: F/P - Black; E - [facility] Trash Bin Robaxin No Notes: [facility]oria 8- (Same l 17:52: as:Robaxin ) Lactated No 1,000 mL, Boy tadeo Ringers 02-07 Rate: 75 l 1,000 mL 17:52: ml/hr, Luke 00 Infuse over: 13.3 hr, Route: IV, Dosing Weight 89.545 kg, Total Volume: 1,000, Start date: 02/08/16 12:52:00 CDT, Duration: 30 day, Stop date: 03/09/16 12:51:00 CDT Flexeril 2015- No Notes: Memoria 8- (Same As: l 17:52: Flexeril) Luke ceFAZolin No Notes: Memori a 8- Same as: l 03:00: Ancef [place] 00 ceFAZolin No Notes: Memori a 8- Same as: l 03:00: Ancef [place] ceFAZolin No Notes: Memori a 8- Same as: l 03:00: Ancef [place] 00 ceFAZolin No Notes: Memori a 8- Same as: l 03:00: Ancef [place] 00 ceFAZolin No Notes: Memori a 8- Same as: l 03:00: Ancef [place] 00 ceFAZolin 2015- No Notes: Memori a 8- Same as: l 03:00: Ancef [place] 00 ceFAZolin 2015- No Notes: Memori a 8-23 Same as: l 03:00: Ancef Luke carvedilol Yes 12.5 mg = Me moria [...] / 01-17 Same as l Hydrocodone 14:32: Adkins Anitra nn Bitartrate 00 325-7.5mg 7.5 MG Oral Do not Tablet exceed [Adkins 4gm/day of 7.5/325] acetaminop hen. Acetaminoph No Notes: Boy tadeo en 325 MG / 01-17 Same as l Hydrocodone 14:32: [facility] Anitra nn Bitartrate 00 325-7.5mg 7.5 MG Oral Do not Tablet exceed [Adkins 4gm/day of 7.5/325] acetaminop hen. Acetaminoph No Notes: Boy tadeo en 325 MG / 802 Same as l Hydrocodone 14:32: Adkins Anitra nn Bitartrate 00 325-7.5mg 7.5 MG Oral Do not Tablet exceed [Adkins 4gm/day of 7.5/325] acetaminop hen. Acetaminoph No Notes: Boy tadeo en 325 MG / 802 Same as l Hydrocodone 14:32: Adkins Anitra nn Bitartrate 00 325-7.5mg 7.5 MG Oral Do not Tablet exceed [Adkins 4gm/day of 7.5/325] acetaminop hen. Acetaminoph No Notes: Boy tadeo en 325 MG / 802 Same as l Hydrocodone 14:32: Adkins Anitra nn Bitartrate 00 325-7.5mg 7.5 MG Oral Do not Tablet exceed [Adkins 4gm/day of 7.5/325] acetaminop hen. Acetaminoph No Notes: Boy tadeo en 325 MG / 01-17 Same as l Hydrocodone 14:32: Adkins Anitra nn Bitartrate 00 325-7.5mg 7.5 MG Oral Do not Tablet exceed [Adkins 4gm/day of 7.5/325] acetaminop hen. Acetaminoph No Notes: Boy tadeo en 325 MG / 802 Same as l Hydrocodone 14:32: Adkins Anitra nn Bitartrate 00 325-7.5mg 7.5 MG Oral Do not Tablet exceed [Adkins 4gm/day of 7.5/325] acetaminop hen. sodium 0 [...] CDT, Stop date: 02/16/16 16:41:00 CDT sodium 2015- No 15 mmol, 5 Memor ia phosphate [...] sodium, 7-31 porcine l porcine 02:00: heparin [place] 2500 UNT/ML 00 Injectable Solution heparin No Notes: Memoria sodium, 7-31 porcine l porcine 02:00: heparin [place] 2500 UNT/ML 00 Injectable Solution heparin No Notes: Memoria sodium, 7-31 porcine l porcine 02:00: heparin [place] 2500 UNT/ML 00 Injectable Solution heparin No Notes: Memoria sodium, 7-31 porcine l porcine 02:00: heparin [place] 2500 UNT/ML 00 Injectable Solution heparin No Notes: Memoria sodium, 7-31 porcine l porcine 02:00: heparin [place] 2500 UNT/ML 00 Injectable Solution gabapentin 2016-0 No Notes: Memor ia 300 MG Oral [...] Herm robert Insulin, No Notes: Memoria Aspart, 7-29 Roll [...] Roll in l Human 21:30: palms of [place] 00 hands gently; Do not shake vigorously . (Same as: NovoLOG) "single patient use only" WASTE: F/P - Black; E - Municipal Trash Bin Stable for 28 days at room temperatur e. Expires in days from ____Date Insulin, No Notes: Memoria Aspart, 7-29 Roll in l Human 21:30: palms of [place] 00 hands gently; Do not shake vigorously . (Same as: NovoLOG) "single patient use only" WASTE: F/P - Black; E - Municipal Trash Bin Stable for 28 days at room temperatur e. Expires in days from ____Date Insulin, No Notes: Memoria Aspart, 7-29 Roll in l Human 21:30: palms of [place] 00 hands gently; Do not shake vigorously [...] from ____Date Insulin, No Notes: Memoria Aspart, 7- Roll in l Human 21:30: palms of [place] 00 hands gently; Do not shake vigorously . (Same as: NovoLOG) "single patient use only" WASTE: F/P - Black; E - Municipal Trash Bin Stable for 28 days at room temperatur e. Expires in days from ____Date Insulin, No Notes: Memoria Aspart, 7-29 Roll in l Human 21:30: palms of [place] 00 hands gently; Do not shake vigorously . (Same as: NovoLOG) "single patient use only" WASTE: F/P - Black; E - Municipal Trash Bin Stable for 28 days at room temperatur e. Expires in days from ____Date Hydralazine No Notes: Boy tadeo 7-29 (Same as: l 19:44: Apresoline [place] 00 ) Push over 5 minutes Hydralazine No Notes: Boy tadeo 7-29 (Same as: l 19:44: Apresoline [place] 00 ) Push over 5 minutes Hydralazine No Notes: Boy tadeo 7-29 (Same as: l 19:44: Apresoline [place] 00 ) Push over 5 minutes Hydralazine No Notes: Boy tadeo 7-29 (Same as: l 19:44: Apresoline [place] 00 ) Push over 5 minutes Hydralazine No Notes: Boy tadeo 7-29 (Same as: l 19:44: Apresoline [place] 00 ) Push over 5 minutes Hydralazine No Notes: Boy tadeo 7-29 (Same as: l 19:44: Apresoline [place] 00 ) Push over 5 minutes Hydralazine No Notes: Boy tadeo 7-29 (Same as: l 19:44: Apresoline [place] 00 ) Push over 5 minutes Ativan No Notes: Memoria 7-28 (Same as: l 20:06: Ativan) Luke Ativan No Notes: Memoria 7-28 (Same as: l 20:06: Ativan) [place] Ativan No Notes: Memoria 7-28 (Same as: l 20:06: Ativan) [place] Ativan No Notes: Memoria 7-28 (Same as: l 20:06: Ativan) [place] Ativan No Notes: Memoria 7-28 (Same as: l 20:06: Ativan) [place] Ativan No Notes: Memoria 7-28 (Same as: l 20:06: Ativan) [place] Ativan No Notes: Memoria 7-28 (Same as: l 20:06: Ativan) [place] 00 Acetaminoph No 1 tab, Boy tadeo en 325 MG / 01-12 Route: PO, l Hydrocodone 20:05: Drug Form: [place] Bitartrate 00 TAB, 10 MG Oral Dosing Tablet Weight [Adkins 97.983, 10/325] kg, Q4H, Start date: 01/13/16 15:05:00 CDT, Stop date: 02/12/16 16:00:00 CDT Acetaminoph No 1 tab, Boy tadeo en 325 MG / 01-12 Route: PO, l Hydrocodone 20:05: Drug Form: [place] Bitartrate 00 TAB, 10 MG Oral Dosing Tablet Weight [Adkins 97.983, 10/325] kg, Q4H, Start date: 01/13/16 15:05:00 CDT, Stop date: 02/12/16 16:00:00 CDT Acetaminoph 0 No 1 tab, Boy tadeo en 325 MG / 01-12 Route: PO, l Hydrocodone 20:05: Drug Form: [place] Bitartrate 00 TAB, 10 MG Oral Dosing Tablet Weight [Adkins 97.983, 10/325] kg, Q4H, Start date: 01/13/16 15:05:00 CDT, Stop date: 02/12/16 16:00:00 CDT Acetaminoph 0 No 1 tab, Boy tadeo en 325 MG / 01-12 Route: PO, l Hydrocodone 20:05: Drug Form: [place] Bitartrate 00 TAB, 10 MG Oral Dosing Tablet Weight [Adkins 97.983, 10/325] kg, Q4H, Start date: 01/13/16 15:05:00 CDT, Stop date: 02/12/16 16:00:00 CDT Acetaminoph 0 No 1 tab, Boy tadeo en 325 MG / 01-12 Route: PO, l Hydrocodone 20:05: Drug Form: [place] Bitartrate 00 TAB, 10 MG Oral Dosing Tablet Weight [Adkins 97.983, 10/325] kg, Q4H, Start date: 01/13/16 15:05:00 CDT, Stop date: 02/12/16 16:00:00 CDT Acetaminoph 0 No 1 tab, Boy tadeo en 325 MG / 01-12 Route: PO, l Hydrocodone 20:05: Drug Form: [place] Bitartrate 00 TAB, 10 MG Oral Dosing Tablet Weight [Adkins 97.983, 10/325] kg, Q4H, Start date: 01/13/16 15:05:00 CDT, Stop date: 02/12/16 16:00:00 CDT Acetaminoph 0 No 1 tab, Boy tadeo en 325 MG / 01-12 Route: PO, l Hydrocodone 20:05: Drug Form: [place] Bitartrate 00 TAB, 10 MG Oral Dosing Tablet Weight [Adkins 97.983, 10/325] kg, Q4H, Start date: 01/13/16 15:05:00 CDT, Stop date: 02/12/16 16:00:00 CDT Miralax 2015-0 No Notes: Memoria 7-28 Dissolve l 14:11: in 8 oz of [place] 00 water or juice. (Same as: Miralax) Miralax 0 No Notes: Memoria 7-28 Dissolve l 14:11: in 8 oz of [place] 00 water or juice. (Same as: Miralax) Miralax 0 No Notes: Memoria 7-28 Dissolve l 14:11: in 8 oz of [place] 00 water or juice. (Same as: Miralax) Miralax 0 No Notes: Memoria 7-28 Dissolve l 14:11: in 8 oz of [place] 00 water or juice. (Same as: Miralax) Miralax 0 No Notes: Memoria 7-28 Dissolve l 14:11: in 8 oz of [place] 00 water or juice. (Same as: Miralax) Miralax No Notes: Memoria 7-28 Dissolve l 14:11: in 8 oz of [place] 00 water or juice. (Same as: Miralax) Miralax No Notes: Memoria 7-28 Dissolve l 14:11: in 8 oz of [place] 00 water or juice. (Same as: Miralax) Lorazepam No 0.5 mg, Memor ia 01-11 Route: l 15:44: IVP, Drug [place] 00 form: INJ, ONCE, Dosing Weight 97.983, kg, PRN Anxiety, Priority: NOW, Start date: 01/12/16 10:44:00 CDT Lorazepam 0 No 0.5 mg, Memor ia 01-11 Route: l 15:44: IVP, Drug [place] 00 form: INJ, ONCE, Dosing Weight 97.983, kg, PRN Anxiety, Priority: NOW, Start date: 01/12/16 10:44:00 CDT Lorazepam 0 No 0.5 mg, Memor ia 01-11 Route: l 15:44: IVP, Drug [place] 00 form: INJ, ONCE, Dosing Weight 97.983, kg, PRN Anxiety, Priority: NOW, Start date: 01/12/16 10:44:00 CDT Lorazepam 2015-0 No 0.5 mg, Memor ia 01-11 Route: l 15:44: IVP, Drug [place] 00 form: INJ, ONCE, Dosing Weight 97.983, kg, PRN Anxiety, Priority: NOW, Start date: 01/12/16 10:44:00 CDT Lorazepam 2015-0 No 0.5 mg, Memor ia 01-11 Route: l 15:44: IVP, Drug [place] form: INJ, ONCE, Dosing Weight 97.983, kg, PRN Anxiety, Priority: NOW, Start date: 01/12/16 10:44:00 CDT Lorazepam 2015-0 No 0.5 mg, Memor ia 01-11 Route: l 15:44: IVP, Drug [place] 00 form: INJ, ONCE, Dosing Weight 97.983, kg, PRN Anxiety, Priority: NOW, Start date: 01/12/16 10:44:00 CDT Lorazepam 2015-0 No 0.5 mg, Memor ia 01-11 Route: l 15:44: IVP, Drug [place] 00 form: INJ, ONCE, Dosing Weight 97.983, kg, PRN Anxiety, Priority: NOW, Start date: 01/12/16 10:44:00 CDT Tradjenta 2015-0 No 5 mg, Memoria 01-11 Route: PO, l 14:00: Drug form: Luke TAB, Daily, Dosing Weight 97.983, kg, Start [...] ia 7-27 (Same as: l 14:00: Norvasc) [place] Docusate No Notes: Memoria 7-27 (Same as: l 14:00: Colace) [place] (Do Not Crush) Spironolact No Notes: Boy tadeo one 7-27 (Same As: l 14:00: Aldactone) Tradjenta No 5 mg, Memoria 7-27 Route: PO, l 14:00: Drug form: [place] 00 TAB, Daily, Dosing Weight 97.983, kg, Start date: 01/12/16 9:00:00 CDT irbesartan No Notes: Memor ia 7-27 (Same l 14:00: as:Avapro) Furosemide No Notes: Memor ia 20 MG Oral 7-27 (Same as: l Tablet 14:00: Lasix) May nn cause GI upset. Give with food or milk. glimepiride No Notes: Boy tadeo 7-27 (Same as: l 14:00: Amaryl) [place] Tradjenta 5 No Tradellanta M emoria mg 7-27 5 mg l [...] As: Ecotrin) Amlodipine No Notes: Memor ia 7- (Same as: l 14:00: Norvasc) Docusate No Notes: Memoria 7- (Same as: l 14:00: Colace) [place] (Do Not Crush) Spironolact No Notes: Boy tadeo one 01-11 (Same As: l 14:00: Aldactone) Tradjenta No 5 mg, Memoria 01-11 Route: PO, l 14:00: Drug form: [place] 00 TAB, Daily, Dosing Weight 97.983, kg, Start date: 01/12/16 9:00:00 CDT irbesartan No Notes: Memor ia 7- (Same l 14:00: as:Avapro) Furosemide No Notes: Memor ia 20 MG Oral 01-11 (Same as: l Tablet 14:00: Lasix) May nn cause GI upset. Give with food or milk. glimepiride No Notes: Boy tadeo - (Same as: l 14:00: Amaryl) Tradjenta 5 No Tradfedericoa M emoria mg - 5 mg l (Patient's 14:00: (Patient's H ermann own 00 own medicine) medicine), 1 tab, Drug form: MISC, Route: PO, Daily, 01/12/16 9:00:00 CDT, Duration: 30 day, Stop date: 02/10/16 9:00:00 CDT Aspirin 81 No Notes: Do Me moria MG Enteric - not crush l Coated 14:00: or chew. Luke Tablet 00 (Same As: Ecotrin) Amlodipine No Notes: Memor ia 7- (Same as: l 14:00: Norvasc) [place] 00 Docusate No Notes: Memoria 7- (Same as: l 14:00: Colace) [place] (Do Not Crush) Spironolact No Notes: Boy tadeo one 7-27 (Same As: l 14:00: Aldactone) Tradjenta No 5 mg, Memoria 7- Route: PO, l 14:00: Drug form: [place] 00 TAB, Daily, Dosing Weight 97.983, kg, Start date: 01/12/16 9:00:00 CDT irbesartan No Notes: Memor ia 7-27 (Same l 14:00: as:Avapro) [place] Furosemide No Notes: Memor ia 20 MG Oral 7-27 (Same as: l Tablet 14:00: Lasix) May Anitra nn cause GI upset. Give with food or milk. glimepiride No Notes: Boy tadeo 7-27 (Same as: l 14:00: Amaryl) Tradjenta 5 No Jhon M emoria mg 7-27 5 mg l [...] 14:00: Aldactone) Tradjenta No 5 mg, Memoria 7- Route: PO, l 14:00: Drug form: Luke TAB, Daily, Dosing Weight 97.983, kg, Start date: 01/12/16 9:00:00 CDT irbesartan No Notes: Memor ia 7-27 (Same l 14:00: as:Avapro) Furosemide No Notes: Memor ia 20 MG Oral 7-27 (Same as: l Tablet 14:00: Lasix) October cause GI upset. Give with food or milk. glimepiride No Notes: Boy tadeo 7-27 (Same as: l 14:00: Amaryl) Tradjenta 5 No Tradellanta M emoria mg 7-27 5 mg l (Patient's 14:00: (Patient's H ermann own 00 own medicine) medicine), 1 tab, Drug form: MISC, Route: PO, Daily, 01/12/16 9:00:00 CDT, Duration: 30 day, Stop date: 02/10/16 9:00:00 CDT Aspirin 81 No Notes: Do Me moria MG Enteric 7-27 not crush l Coated 14:00: or chew. Tablet (Same As: Ecotrin) Amlodipine No Notes: Memor ia 7-27 (Same as: l 14:00: Norvasc) Docusate No Notes: Memoria 7-27 (Same as: l 14:00: Colace) (Do Not Crush) Spironolact No Notes: Boy tadeo one 7-27 (Same As: l 14:00: Aldactone) Tradjenta No 5 mg, Memoria 7-27 Route: PO, l 14:00: Drug form: [place] 00 TAB, Daily, Dosing Weight 97.983, kg, Start date: 01/12/16 9:00:00 CDT irbesartan No Notes: Memor ia 7-27 (Same l 14:00: as:Avapro) Furosemide No Notes: Memor ia 20 MG Oral 7-27 (Same as: l Tablet 14:00: Lasix) October cause GI upset. Give with food or milk. glimepiride No Notes: Boy tadeo 7-27 (Same as: l 14:00: Amaryl) Tradjenta 5 No Tradellanta M emoria mg 7-27 5 mg l (Patient's 14:00: (Patient's H ermann own 00 own medicine) medicine), 1 tab, Drug form: MISC, Route: PO, Daily, 01/12/16 9:00:00 CDT, Duration: 30 day, Stop date: 02/10/16 9:00:00 CDT Aspirin 81 No Notes: Do Me moria MG Enteric 7-27 not crush l Coated 14:00: or chew. [place] Tablet 00 (Same As: Ecotrin) Amlodipine No Notes: Memor ia 7-27 (Same as: l 14:00: Norvasc) [place] Docusate No Notes: Memoria 7-27 (Same as: l 14:00: Colace) [place] (Do Not Crush) Spironolact No Notes: Boy tadeo one 7-27 (Same As: l 14:00: Aldactone) Tradjenta No 5 mg, Memoria 7-27 Route: PO, l 14:00: Drug form: [place] 00 TAB, Daily, Dosing Weight 97.983, kg, Start date: 01/12/16 9:00:00 CDT irbesartan No Notes: Memor ia 7-27 (Same l 14:00: as:Avapro) Furosemide No Notes: Memor ia 20 MG Oral 7-27 (Same as: l Tablet 14:00: Lasix) May cause GI upset. Give with food or milk. glimepiride No Notes: Boy tadeo 7-27 (Same as: l 14:00: Amaryl) [place] Tradjenta 5 No Tradjenta M emoria mg 7-27 5 mg l (Patient's 14:00: (Patient's H erm own 00 own medicine) medicine), 1 tab, Drug form: MISC, Route: PO, Daily, 01/12/16 9:00:00 CDT, Duration: 30 day, Stop date: 02/10/16 9:00:00 CDT Aspirin 81 No Notes: Do Me moria MG Enteric 7-27 not crush l Coated 14:00: or chew. [place] Tablet (Same As: Ecotrin) Amlodipine No Notes: Memor ia 7- (Same as: l 14:00: Norvasc) Docusate No Notes: Memoria 7- (Same as: l 14:00: Colace) (Do Not [...] l Flush 13:19: BD Luke Posiflush) Sodium 2016-0 No 25 mL, Memoria Chloride - Route: IV, l 0.9% IV 13:19: Start [place] 00 date: 01/12/16 8:19:00 CDT, Duration: 30 day, Stop date: 02/11/16 8:18:00 CDT, PRN Line Flush BD Normal 0 No Notes: Memori a Saline 7-27 (Same as: l Flush 13:19: BD [place] Posiflush) Sodium 2015-0 No 25 mL, Memoria Chloride 01-11 Route: IV, l 0.9% IV 13:19: Start date: 01/12/16 8:19:00 CDT, Duration: 30 day, Stop date: 02/11/16 8:18:00 CDT, PRN Line Flush BD Normal No Notes: Memori a Saline 7-27 (Same as: l Flush 13:19: BD [place] 00 Posiflush) Sodium 2015-0 No 25 mL, Memoria Chloride 01-11 Route: IV, l 0.9% IV 13:19: Start date: 01/12/16 8:19:00 CDT, Duration: 30 day, Stop date: 02/11/16 8:18:00 CDT, PRN Line Flush BD Normal 0 No Notes: Memori a Saline 7-27 (Same as: l Flush 13:19: BD [place] 00 Posiflush) Sodium 2015-0 No 25 mL, Memoria Chloride 01-11 Route: IV, l 0.9% IV 13:19: Start [place] 00 date: 01/12/16 8:19:00 CDT, Duration: 30 day, Stop date: 02/11/16 8:18:00 CDT, PRN Line Flush BD Normal 0 No Notes: Memori a Saline 7-27 (Same as: l Flush 13:19: BD [place] Posiflush) Sodium 2015-0 No 25 mL, Memoria Chloride 01-11 Route: IV, l 0.9% IV 13:19: Start date: 01/12/16 8:19:00 CDT, Duration: 30 day, Stop date: 02/11/16 8:18:00 CDT, PRN Line Flush BD Normal No Notes: Memori a Saline 01-11 (Same as: l Flush 13:19: BD [place] 00 Posiflush) Insulin, No Notes: Memoria Aspart, 7 Roll in l Human 03:38: palms of [place] 00 hands gently; Do not shake vigorously [...] 22:37:00 CDT Insulin, No Notes: Memoria Aspart, 7- Roll in l Human 03:38: palms of [place] 00 hands gently; Do not shake vigorously . (Same as: NovoLOG) "single patient use only" WASTE: F/P - Black; E - Municipal Trash Bin Stable for 28 days at room temperatur e. Expires in days from ____Date Dextrose No 12.5 gm, Memor ia 50% Syringe 01-11 25 mL, l 03:38: Route: [place] 00 IVP, Drug Form: INJ, Dosing Weight 97.983, kg, PRN, PRN Blood Glucose Results, Start date: 01/11/16 22:38:00 CDT, Duration: 30 day, Stop date: 02/10/16 22:37:00 CDT Glucagon No 1 mg, Memoria - Route: IM, l 03:38: Drug form: [place] 00 PDR/INJ, PRN, Dosing Weight 97.983, kg, PRN Blood Glucose Results, Start date: 01/11/16 22:38:00 CDT, Duration: 30 day, Stop date: 02/10/16 22:37:00 CDT Insulin, 2015-0 No Notes: Memoria Aspart, 7-27 Roll in l Human 03:38: palms of [place] 00 hands gently; Do not shake vigorously . (Same as: NovoLOG) "single patient use only" WASTE: F/P - Black; E - Municipal Trash Bin Stable for 28 days at room temperatur e. Expires in days from ____Date Dextrose No 12.5 gm, Memor ia 50% Syringe 01-11 25 mL, l 03:38: Route: [place] 00 IVP, Drug Form: INJ, Dosing Weight [...] Roll in l Human 03:38: palms of [place] 00 hands gently; Do not shake vigorously . (Same as: NovoLOG) "single patient use only" WASTE: F/P - Black; E - Municipal Trash Bin Stable for 28 days at room temperatur e. Expires in days from ____Date Dextrose 2015-0 No 12.5 gm, Memor ia 50% Syringe 7-27 25 mL, l 03:38: Route: [place] 00 IVP, Drug Form: INJ, Dosing Weight 97.983, kg, PRN, PRN Blood Glucose Results, Start date: 01/11/16 22:38:00 CDT, Duration: 30 day, Stop date: 02/10/16 22:37:00 CDT Glucagon 2015-0 No 1 mg, Memoria 7-27 Route: IM, l 03:38: Drug form: [place] 00 PDR/INJ, PRN, Dosing Weight 97.983, kg, PRN Blood Glucose Results, Start date: 01/11/16 22:38:00 CDT, Duration: 30 day, Stop date: 02/10/16 22:37:00 CDT Insulin, 2015-0 No Notes: Memoria Aspart, 7-27 Roll in l Human 03:38: palms of [place] 00 hands gently; Do not shake vigorously . (Same as: NovoLOG) "single patient use only" WASTE: F/P - Black; E - Municipal Trash Bin Stable for 28 days at room temperatur e. Expires in days from ____Date Dextrose 2015-0 No 12.5 gm, Memor ia 50% Syringe 7-27 25 mL, l 03:38: Route: [place] 00 IVP, Drug Form: INJ, Dosing Weight [...] Syringe 7-27 25 mL, l 03:38: Route: [place] 00 IVP, Drug Form: INJ, Dosing Weight 97.983, kg, PRN, PRN Blood Glucose Results, Start date: 01/11/16 22:38:00 CDT, Duration: 30 day, Stop date: 02/10/16 22:37:00 CDT Glucagon 2015-0 No 1 mg, Memoria 7-27 Route: IM, l 03:38: Drug form: [place] 00 PDR/INJ, PRN, Dosing Weight 97.983, kg, [...] 7-27 Route: IM, l 03:38: Drug form: [place] 00 PDR/INJ, PRN, Dosing Weight 97.983, kg, PRN Blood Glucose Results, Start date: 01/11/16 22:38:00 CDT, Duration: 30 day, Stop date: 02/10/16 22:37:00 CDT Lipitor No Notes: Memoria 7 (Same As: l 02:38: Lipitor) [place] Lipitor No Notes: Memoria 01-11 (Same As: l 02:38: Lipitor) [place] Lipitor No Notes: Memoria 7- (Same As: l 02:38: Lipitor) [place] Lipitor No Notes: Memoria 7 (Same As: l 02:38: Lipitor) [place] Lipitor No Notes: Memoria 7 (Same As: l 02:38: Lipitor) [place] Lipitor No Notes: Memoria 01-11 (Same As: l 02:38: Lipitor) [place] Lipitor No Notes: Memoria 01-11 (Same As: l 02:38: Lipitor) [place] Lantus No Notes: Memoria 01-11 Same as l 02:00: Lantus [place] 00 Solostar PEN Do not hold insulin without contacting prescriber "single patient use only" WASTE: F/P - Black; E - Municipal Trash Bin Stable for 28 days at room temperatur e. Expires in days from ____Date carvedilol No Notes: Migdalia gama 01-11 Give with l 02:00: food. Luke 00 (Same As: Coreg) Crestor No Route: PO, Boy tadeo 01-11 Drug form: l 02:00: TAB, [place] 00 Bedtime, Dosing Weight 97.983, kg, Start date: 01/11/16 21:00:00 CDT, Duration: 30 day, Stop date: 02/09/16 21:00:00 CDT Lantus No Notes: Memoria 01-11 Same as l 02:00: Lantus [place] 00 Solostar PEN Do not hold insulin without contacting prescriber "single patient use only" WASTE: F/P - Black; E - Municipal Trash Bin Stable for 28 days at room temperatur e. Expires in days from ____Date carvedilol No Notes: Memor ia 7-27 Give with l 02:00: food. Luke 00 (Same As: Coreg) [facility] No Route: PO, Boy tadeo 7-27 Drug form: l 02:00: TAB, [place] 00 Bedtime, Dosing Weight 97.983, kg, Start date: 01/11/16 21:00:00 CDT, Duration: 30 day, Stop date: 02/09/16 21:00:00 CDT Lantus No Notes: Memoria 7-27 Same as l 02:00: Lantus [place] 00 Solostar PEN Do not hold insulin without contacting prescriber "single patient use only" WASTE: F/P - Black; E - Municipal Trash Bin Stable for 28 days at room temperatur e. Expires in days from ____Date carvedilol No Notes: Memor ia 7-27 Give with l 02:00: food. Luke (Same As: Coreg) [facility] No Route: PO, Boy tadeo 7-27 Drug form: l 02:00: TAB, Luke 00 Bedtime, Dosing Weight 97.983, kg, Start date: 01/11/16 21:00:00 CDT, Duration: 30 day, Stop date: 02/09/16 21:00:00 CDT Lantus No Notes: Memoria 7-27 Same as l 02:00: Lantus [place] 00 Solostar PEN Do not hold insulin without contacting prescriber "single patient use only" WASTE: F/P - Black; E - Municipal Trash Bin Stable for 28 days at room temperatur e. Expires in days from ____Date carvedilol No Notes: Memor ia 7-27 Give with l 02:00: food. Luke (Same As: Coreg) [facility] No Route: PO, Boy tadeo 7-27 Drug form: l 02:00: TAB, [place] 00 Bedtime, Dosing Weight 97.983, kg, Start date: 01/11/16 21:00:00 CDT, Duration: 30 day, Stop date: 02/09/16 21:00:00 CDT Lantus No Notes: Memoria 7- Same as l 02:00: Lantus [place] 00 Solostar PEN Do not hold insulin without contacting prescriber "single patient use only" WASTE: F/P - Black; E - Municipal Trash Bin Stable for 28 days at room temperatur e. Expires in days from ____Date carvedilol No Notes: Memor ia 7-27 Give with l 02:00: food. [place] 00 (Same As: Coreg) Crestor No Route: [...] ia 7-27 Give with l 02:00: food. [place] 00 (Same As: Coreg) Crestor No Route: [...] 01-11 Give with l 02:00: food. Luke (Same As: Coreg) Crestor No Route: PO, Boy tadeo 01-11 Drug form: l 02:00: TAB, [place] 00 Bedtime, Dosing Weight 97.983, kg, Start date: 01/11/16 21:00:00 CDT, Duration: 30 day, Stop date: 02/09/16 21:00:00 CDT Acetaminoph No Notes: Do M emoria en 325 MG / 01-10 not exceed l Hydrocodone 23:00: 4gm/day of [place] Bitartrate 00 acetaminop 10 MG Oral hen. (Same Tablet as: Adkins [Adkins 325/10) 10/325] Enoxaparin No Notes: Memor ia 01-10 (Same as: l 23:00: Lovenox) Acetaminoph No Notes: Do M emoria en 325 MG / 01-10 not exceed l Hydrocodone 23:00: 4gm/day of [place] Bitartrate 00 acetaminop 10 MG Oral hen. (Same Tablet as: Adkins [Adkins 325/10) 10/325] Enoxaparin No Notes: Memor ia 01-10 (Same as: l 23:00: Lovenox) [place] 00 Acetaminoph No Notes: Do M emoria en 325 MG / 01-10 not exceed l Hydrocodone 23:00: 4gm/day of [place] Bitartrate 00 acetaminop 10 MG Oral hen. (Same Tablet as: Adkins [Adkins 325/10) 10/325] Enoxaparin No Notes: Memor ia 01-10 (Same as: l 23:00: Lovenox) [place] 00 Acetaminoph No Notes: Do M emoria en 325 MG / 01-10 not exceed l Hydrocodone 23:00: 4gm/day of [place] Bitartrate 00 acetaminop 10 MG Oral hen. (Same Tablet as: Adkins [Adkins 325/10) 10/325] Enoxaparin No Notes: Memor ia 7-26 (Same as: l 23:00: Lovenox) Acetaminoph No Notes: Do M emoria en 325 MG / 01-10 not exceed l Hydrocodone 23:00: 4gm/day of [place] Bitartrate 00 acetaminop 10 MG Oral hen. (Same Tablet as: Adkins [Adkins 325/10) 10/325] Enoxaparin No Notes: Memor ia 7-26 (Same as: l 23:00: Lovenox) Acetaminoph No Notes: Do M emoria en 325 MG / 01-10 not exceed l Hydrocodone 23:00: 4gm/day of [place] Bitartrate 00 acetaminop 10 MG Oral hen. (Same Tablet as: Adkins [Adkins 325/10) 10/325] Enoxaparin No Notes: Memor ia 7-26 (Same as: l 23:00: Lovenox) Acetaminoph No Notes: Do M emoria en 325 MG / 01-10 not exceed l Hydrocodone 23:00: 4gm/day of [place] Bitartrate 00 acetaminop 10 MG Oral hen. (Same Tablet as: Adkins [Adkins 325/10) 10/325] Enoxaparin No Notes: Memor ia 7-26 (Same as: l 23:00: Lovenox) Clonidine No Notes: Memori a Hydrochlori 7-26 (Same As: l de 0.1 MG 22:56: Catapres) Her kowalski Oral Tablet Clonidine No Notes: Memori a Hydrochlori 7-26 (Same As: l de 0.1 MG 22:56: Catapres) Her kowalski Oral Tablet Clonidine No Notes: Memori a Hydrochlori 7-26 (Same As: l de 0.1 MG 22:56: Catapres) Her kowalski Oral Tablet Clonidine No Notes: Memori a Hydrochlori 7-26 [...] 0.9% 7-26 (Same as: l 22:53: BD [place] Posiflush) Morphine No Notes: Memoria 7-26 (Same l 22:53: as:MORPhin [place] 00 e Sulfate) Ondansetron No Notes: Boy tadeo - (Same as: l 22:53: Zofran) MEDICATION WASTE Product Size: 4 mg Product Wasted: ___ mg Acetaminoph No 100.4 F, M emoria en 01-10 Start l 22:53: date: 01/11/16 17:53:00 CDT, Duration: 30 day, Stop date: 02/10/16 17:52:00 CDT Sodium No 1,000 mL, Memori a Chloride 01-10 Rate: 45 l 0.154 22:53: ml/hr, [place] MEQ/ML 00 Infuse Injectable over: 22.2 Solution hr, Route: IV, Dosing Weight 97.983 kg, Total Volume: 1,000, Start date: 01/11/16 17:53:00 CDT, Duration: 30 day, Stop date: 02/10/16 17:52:00 CDT Saline No Notes: Memoria Flush 0.9% 7-26 (Same as: l 22:53: BD Luke 00 Posiflush) Morphine No Notes: Memoria 7-26 (Same l 22:53: as:MORPhin [place] 00 e Sulfate) Ondansetron No Notes: Boy tadeo 7-26 (Same as: l 22:53: Zofran) [place] 00 MEDICATION WASTE Product Size: 4 mg Product Wasted: ___ mg Acetaminoph No 100.4 Brian Quiles en 01-10 Start l 22:53: date: 01/11/16 17:53:00 CDT, Duration: 30 day, Stop date: 02/10/16 17:52:00 CDT Sodium No 1,000 mL, Memori a Chloride 01-10 Rate: 45 l 0.154 22:53: ml/hr, [place] MEQ/ML 00 Infuse Injectable over: 22.2 Solution hr, Route: IV, Dosing Weight 97.983 kg, Total Volume: 1,000, Start date: 01/11/16 17:53:00 CDT, Duration: 30 day, Stop date: 02/10/16 17:52:00 CDT Saline No Notes: Memoria Flush 0.9% 01-10 (Same as: l 22:53: BD [place] 00 Posiflush) Morphine No Notes: Memoria - (Same l 22:53: as:MORPhin [place] 00 e Sulfate) Ondansetron No Notes: Boy tadeo - (Same as: l 22:53: Zofran) [place] 00 MEDICATION WASTE Product Size: 4 mg Product Wasted: ___ mg Acetaminoph No 100.4 Brian Quiles en 01-10 Start l 22:53: date: 01/11/16 17:53:00 CDT, Duration: 30 day, Stop date: 02/10/16 17:52:00 CDT Sodium No 1,000 mL, Memori a Chloride 01-10 Rate: 45 l 0.154 22:53: ml/hr, [place] MEQ/ML 00 Infuse Injectable over: 22.2 Solution hr, Route: IV, Dosing Weight 97.983 kg, Total Volume: 1,000, Start date: 01/11/16 17:53:00 CDT, Duration: 30 day, Stop date: 02/10/16 17:52:00 CDT Saline No Notes: Memoria Flush 0.9% 7-26 (Same as: l 22:53: BD [place] 00 Posiflush) Morphine No Notes: Memoria 7-26 (Same l 22:53: as:MORPhin [place] 00 e Sulfate) Ondansetron No Notes: Boy tadeo 7-26 (Same as: l 22:53: Zofran) [place] 00 MEDICATION WASTE Product Size: 4 mg Product Wasted: ___ mg Acetaminoph No 100.4 F, Brian carmona en 01-10 Start l 22:53: date: 01/11/16 17:53:00 CDT, Duration: 30 day, Stop date: 02/10/16 17:52:00 CDT Sodium No 1,000 mL, Memori a Chloride 01-10 Rate: 45 l 0.154 22:53: ml/hr, [place] MEQ/ML 00 Infuse Injectable over: 22.2 Solution hr, Route: IV, Dosing Weight 97.983 kg, Total Volume: 1,000, Start date: 01/11/16 17:53:00 CDT, Duration: 30 day, Stop date: 02/10/16 17:52:00 CDT Saline No Notes: Memoria Flush 0.9% 7-26 (Same as: l 22:53: BD [place] 00 Posiflush) Morphine No Notes: Memoria 7-26 (Same l 22:53: as:MORPhin [place] 00 e Sulfate) Ondansetron No Notes: Boy [...] 7-26 (Same as: l 22:53: BD Luke Posiflush) Morphine No Notes: Memoria 7-26 (Same [...] 0.9% 7-26 (Same as: l 22:53: BD [place] Posiflush) Morphine No Notes: Memoria 7-26 (Same l 22:53: as:MORPhin e Sulfate) Ondansetron [...] tab, PO, l tablet 22:27: Daily, # [place] 00 30 tab, 0 Refill(s) irbesartan 0 [...] tab, PO, l tablet 22:27: Daily, # [place] 00 30 tab, 0 Refill(s) Co Q-10 100 Yes 200 mg = 2 Memoria mg oral 7-26 cap, PO, l capsule 22:21: Daily, 0 Richard n 00 Refill(s) Aspirin 81 Yes 81 mg = 1 Me moria MG Enteric 7-26 tab, PO, l Coated 22:21: Daily, # [place] Tablet 00 90 tab, 3 Refill(s) Vitamin D3 2016 Yes 2,000 Memori a 7-26 IntlUnit, l 22:21: PO, Daily, [place] 00 0 Refill(s) Rosuvastati Yes See Memori [...] tab, PO, l Coated 22:21: Daily, # [place] Tablet 00 90 tab, 3 Refill(s) Vitamin D3 Yes 2,000 Memori a 7-26 IntlUnit, l 22:21: PO, Daily, [place] 00 0 Refill(s) Aspirin 81 2016 Yes 81 mg [...] a 7-26 IntlUnit, l 22:21: PO, Daily, [place] 00 0 Refill(s) Rosuvastati Yes See Memori [...] tab, PO, l Tablet 22:21: Daily, # [place] 00 30 tab, 0 Refill(s) Co Q-10 [...] a 7-26 IntlUnit, l 22:21: PO, Daily, [place] 00 0 Refill(s) Rosuvastati Yes See Memori a n calcium 5 7-26 Instructio l MG Oral 22:21: ns, 1 tab Anitra nn Tablet 00 PO Bedtime [Crestor] tuesdays and fridays, 0 Refill(s) spironolact 2016 Yes 25 mg = 1 M emoria [...] tab, PO, l Tablet 22:21: Daily, # [place] 00 30 tab, 0 Refill(s) Co Q-10 [...] a 7-26 IntlUnit, l 22:21: PO, Daily, [place] 00 0 Refill(s) Rosuvastati Yes See Memori [...] tab, PO, l Tablet 22:21: Daily, # [place] 00 30 tab, 0 Refill(s) Co Q-10 [...] PO, Daily, Luke 00 0 Refill(s) Rosuvastati 2016-0 Yes See Memori a n calcium 5 7-26 Instructio l MG Oral 22:21: ns, 1 tab Anitra nn Tablet 00 PO Bedtime [Crestor] tuesdays and fridays, 0 Refill(s) spironolact 20160 Yes 25 mg = 1 M emoria one 25 mg 7-26 tab, PO, l oral tablet 22:21: Daily, # Manolo rae 00 30 tab, 3 Refill(s) Docusate 0 Yes 300 mg = 3 Mem oria Sodium 100 7-26 cap, PO, l MG Oral 22:21: Daily, 0 Richard n Capsule 00 Refill(s) [Colace] Furosemide 0 Yes 20 mg = 1 Me moria 20 MG Oral 7-26 tab, PO, l Tablet 22:21: Daily, # Luke 00 30 tab, 0 Refill(s) Linagliptin 0 Yes 5 mg = 1 Me moria 5 MG Oral 7-26 tab, PO, l Tablet 22:13: Daily, # [place] [Tradjenta] 00 30 tab, 3 Refill(s) Linagliptin 0 Yes 5 mg = 1 Me moria 5 MG Oral 7-26 tab, PO, l Tablet 22:13: Daily, # [place] [Tradjenta] 00 30 tab, 3 Refill(s) Linagliptin 2015-0 Yes 5 mg = 1 Me moria 5 MG Oral 7-26 tab, PO, l Tablet 22:13: Daily, # [place] [Tradjenta] 00 30 tab, 3 Refill(s) Linagliptin 2016-0 Yes 5 mg = 1 Me moria 5 MG Oral 7-26 tab, PO, l Tablet 22:13: Daily, # [place] [Tradjenta] 00 30 tab, 3 Refill(s) Linagliptin 2016-0 Yes 5 mg = 1 Me moria 5 MG Oral 7-26 tab, PO, l Tablet 22:13: Daily, # [place] [Tradjenta] 00 30 tab, 3 Refill(s) Linagliptin 2016-0 Yes 5 mg = 1 Me moria 5 MG Oral 7-26 tab, PO, l Tablet 22:13: Daily, # [place] [Tradjenta] 00 30 tab, 3 Refill(s) Linagliptin 2015-0 Yes 5 mg = 1 Me moria 5 MG Oral 7-26 tab, PO, l Tablet 22:13: Daily, # [place] [Tradjenta] 00 30 tab, 3 Refill(s) Acetaminoph Yes 2 tabs, Mem oria en 325 MG / 01-10 PO, Q6H, 0 l Hydrocodone 22:01: Refill(s) H ermann Bitartrate 00 10 MG Oral Tablet [Adkins 10/325] Amlodipine Yes 10 mg, PO, M emoria 01-10 Daily, 0 l 22:01: Refill(s) Luke Acetaminoph Yes 2 tabs, Mem oria en 325 MG / 01-10 PO, Q6H, 0 l Hydrocodone 22:01: Refill(s) H ermann Bitartrate 00 10 MG Oral Tablet [Adkins 10/325] Amlodipine Yes 10 mg, PO, M emoria 01-10 Daily, 0 l 22:01: Refill(s) Luke Acetaminoph Yes 2 tabs, Mem oria en 325 MG / 01-10 PO, Q6H, 0 l Hydrocodone 22:01: Refill(s) H ermann Bitartrate 00 10 MG Oral Tablet [Adkins 10/325] Amlodipine Yes 10 mg, PO, M emoria 01-10 Daily, 0 l 22:01: Refill(s) [place] 00 Acetaminoph Yes 2 tabs, Mem oria en 325 MG / 01-10 PO, Q6H, 0 l Hydrocodone 22:01: Refill(s) H ermann Bitartrate 00 10 MG Oral Tablet [Adkins 10/325] Amlodipine Yes 10 mg, PO, M emoria 01-10 Daily, 0 l 22:01: Refill(s) Luke Acetaminoph Yes 2 tabs, Mem oria en 325 MG / 01-10 PO, Q6H, 0 l Hydrocodone 22:01: Refill(s) H ermann Bitartrate 00 10 MG Oral Tablet [Adkins 10/325] Amlodipine Yes 10 mg, PO, M emoria 01-10 Daily, 0 l 22:01: Refill(s) Luke Acetaminoph Yes 2 tabs, Mem oria en 325 MG / 01-10 PO, Q6H, 0 l Hydrocodone 22:01: Refill(s) H ermann Bitartrate 00 10 MG Oral Tablet [Adkins 10/325] Amlodipine Yes 10 mg, PO, M emoria 01-10 Daily, 0 l 22:01: Refill(s) [place] 00 Acetaminoph Yes 2 tabs, Mem oria en 325 MG / 01-10 PO, Q6H, 0 l Hydrocodone 22:01: Refill(s) H ermann Bitartrate 00 10 MG Oral Tablet [Adkins 10/325] Amlodipine Yes 10 mg, PO, M emoria 01-10 Daily, 0 l 22:01: Refill(s) aspirin RX aspirin RX 2012-06 No aspirin [...] Richard n 03 tab, Substituti on Allowed Adkins Yes Rigoberto 1-2 tab, Memoria 10/325 oral 4-21 Skyler PO, Q4-6H, l tablet 13:43: Meiner PRN, 90 Richard n 05 tab, Pain, Substituti on Allowed, Maintenanc e Adkins 2012- Yes Rigoberto 1-2 tab, Memoria 10/325 oral 4-21 Skyler PO, Q4-6H, l tablet 13:43: Meiner PRN, 90 Richard n 05 tab, Pain, Substituti on Allowed, Maintenanc e Adkins 2012- Yes Rigoberto 1-2 tab, Memoria 10/325 oral 4-21 Skyler PO, Q4-6H, l tablet 13:43: Meiner PRN, 90 Richard n 05 tab, Pain, Substituti on Allowed, Maintenanc e Adkins 2012- Yes Rigoberto 1-2 tab, Memoria 10/325 oral 4-21 Skyler PO, Q4-6H, l tablet 13:43: Meiner PRN, 90 Richard n 05 tab, Pain, Substituti on Allowed, Maintenanc e Adkins Yes Rigoberto 1-2 tab, Memoria 10/325 oral 4-21 Skyler PO, Q4-6H, l tablet 13:43: Meiner PRN, 90 Richard n 05 tab, Pain, Substituti on Allowed, Maintenanc e Adkins 2012-0 Yes Rigoberto 1-2 tab, Memoria 10/325 oral 4-21 Skyler PO, Q4-6H, l tablet 13:43: Meiner PRN, 90 Richard n 05 tab, Pain, Substituti on Allowed, Maintenanc e Adkins 2012- Yes Irgoberto 1-2 tab, Memoria 10/325 oral 4-21 Skyler PO, Q4-6H, l tablet 13:43: Meiner PRN, 90 Richard n 05 tab, Pain, Substituti on Allowed, Maintenanc e Flexeril 10 2012- Yes Rigoberto 10 mg, [...] spasm, Substituti on Allowed, TAB Flexeril 10 0 Yes Rigoberto 10 mg, 1 Me moria mg oral 4-21 Skyler tab, PO, l tablet 13:42: Meiner TID, PRN, Herm robert 53 30 tab, for spasm, Substituti on Allowed, TAB Flexeril 10 0 Yes Rigoberto 10 mg, 1 Me moria mg oral 4-21 Skyler tab, PO, l tablet 13:42: Meiner TID, PRN, Herm robert 53 30 tab, for spasm, Substituti on Allowed, TAB Flexeril 10 2012-0 Yes Rigoberto 10 mg, 1 Me moria mg oral 4-21 Skyler tab, PO, l tablet 13:42: Meiner TID, PRN, Herm robert 53 30 tab, for spasm, Substituti on Allowed, TAB Flexeril 10 0 Yes Rigoberto 10 mg, 1 Me moria mg oral 4-21 Skyler tab, PO, l tablet 13:42: Meiner TID, PRN, Herm robert 53 30 tab, for spasm, Substituti on Allowed, TAB Medrol 2012-0 Yes Riogberto As Memoria Dosepak 4 10-06 Skyler directed l mg Tablet 13:42: Meiner on package Luke 51 instructio ns, PO, Daily, Take with or without food, 1 Pack, Substituti on AllowedTak e with or without food Medrol Yes Rigoberto As Memoria Dosepak 4 10-06 Skyler directed l mg Tablet 13:42: Meiner on package [place] 51 instructio ns, PO, Daily, Take with or without food, 1 Pack, Substituti on AllowedTak e with or without food Medrol Yes Rigoberto As Memoria Dosepak 4 10-06 Skyler directed l mg Tablet 13:42: Meiner on package [place] 51 instructio ns, PO, Daily, Take with or without food, 1 Pack, Substituti on AllowedTak e with or without food Medrol Yes Rigoberto As Memoria Dosepak 4 10-06 Skyler directed l mg Tablet 13:42: Meiner on package [place] 51 instructio ns, PO, Daily, Take with or without food, 1 Pack, Substituti on AllowedTak e with or without food Medrol Yes Rigoberto As Memoria Dosepak 4 10-06 Skyler directed l mg Tablet 13:42: Meiner on package [place] 51 instructio ns, PO, Daily, Take with or without food, 1 Pack, Substituti on AllowedTak e with or without food Medrol Yes Rigoberto As Memoria Dosepak 4 10-06 Skyler directed l mg Tablet 13:42: Meiner on package [place] 51 instructio ns, PO, Daily, Take with or without food, 1 Pack, Substituti on AllowedTak e with or without food Medrol 0 Yes Rigoberto As Memoria Dosepak 4 10-06 Skyler directed l mg Tablet 13:42: Meiner on package [place] 51 instructio ns, PO, Daily, Take with [...] 30 day, Stop date: 11/04/12 19:59:00 Lantus 0 No Estela 10 unit, Memor ia 4-20 Young 0.1 mL, l 23:46: Route: Luke SUB-Q, Drug form: INJ, ONCE, Dosing Weight 91.818, kg, Start date: 10/05/12 18:46:00, Stop date: 10/05/12 18:46:00 Lantus 2012-0 No Estela 10 unit, Memor ia 4-20 Young 0.1 mL, l 23:46: Route: [place] 00 SUB-Q, Drug form: INJ, ONCE, Dosing Weight 91.818, kg, Start date: 10/05/12 18:46:00, Stop date: 10/05/12 18:46:00 Lantus 0 No Estela 10 unit, Memor ia 4-20 Young 0.1 mL, l 23:46: Route: Luke SUB-Q, Drug form: INJ, ONCE, Dosing Weight 91.818, kg, Start date: 10/05/12 18:46:00, Stop date: 10/05/12 18:46:00 Lantus 0 No Estela 10 unit, Memor ia 4-20 Young 0.1 mL, l 23:46: Route: [place] SUB-Q, Drug form: INJ, ONCE, Dosing Weight 91.818, kg, Start date: 10/05/12 18:46:00, Stop date: 10/05/12 18:46:00 Lantus 0 No Estela 10 unit, Memor ia 4-20 [...] 4-20 Young 0.1 mL, l 23:46: Route: [place] 00 SUB-Q, Drug form: INJ, ONCE, Dosing Weight 91.818, kg, Start date: 10/05/12 18:46:00, Stop date: 10/05/12 18:46:00 insulin 2012-0 No Estela 3 unit, Memor ia aspart 4-20 Young 0.03 mL, l 22:13: Route: [place] 00 SUB-Q, Drug form: SOLN, TID-Before Meals, [...] 4-20 Young 25 mL, l 22:13: Route: [place] 00 IVP, Drug Form: INJ, Dosing Weight [...] Young Route: IM, l 22:13: Drug form: [place] 00 PDR/INJ, PRN, Dosing Weight 91.818, kg, PRN Blood Glucose Results, Start date: 10/05/12 17:13:00, Duration: 30 day, Stop date: 11/04/12 17:12:00 Dextrose 2012-0 No Estela 12.5 gm, Mem oria 50% Syringe 4-20 Young 25 mL, l 22:13: Route: [place] 00 IVP, Drug Form: INJ, Dosing Weight [...] 4-20 Young 0.03 mL, l 22:13: Route: [place] 00 SUB-Q, Drug form: SOLN, TID-Before Meals, Dosing Weight 91.818, kg, PRN Blood Glucose Results, Start date: 10/05/12 17:13:00, Duration: 30 day, Stop date: 11/04/12 17:12:00 glucagon 2012-0 No Estela 1 mg, Memori a 4-20 Young Route: IM, l 22:13: Drug form: [place] 00 PDR/INJ, PRN, Dosing Weight 91.818, kg, PRN Blood Glucose Results, Start date: 10/05/12 17:13:00, Duration: 30 day, Stop date: 11/04/12 17:12:00 Dextrose 2012-0 No Estela 12.5 gm, Mem oria 50% Syringe 4-20 Young 25 mL, l 22:13: Route: [place] 00 IVP, Drug Form: INJ, Dosing Weight 91.818, kg, PRN, PRN Blood Glucose Results, Start date: 10/05/12 17:13:00, Duration: 30 day, Stop date: 11/04/12 17:12:00 insulin 2012-0 No Estela 3 unit, Memor ia aspart 4-20 Young 0.03 mL, l 22:13: Route: [place] 00 SUB-Q, Drug form: SOLN, TID-Before Meals, Dosing Weight 91.818, kg, PRN Blood Glucose Results, Start date: 10/05/12 17:13:00, Duration: 30 day, Stop date: 11/04/12 17:12:00 glucagon 2012-0 No Estela 1 mg, Memori a 4-20 Young Route: IM, l 22:13: Drug form: [place] 00 PDR/INJ, PRN, Dosing Weight 91.818, kg, PRN Blood Glucose Results, Start date: 10/05/12 17:13:00, Duration: 30 day, Stop date: 11/04/12 17:12:00 Dextrose 2012-0 No Estela 12.5 gm, Mem oria 50% Syringe 4-20 Young 25 mL, l 22:13: Route: [place] 00 IVP, Drug Form: INJ, Dosing Weight 91.818, kg, PRN, PRN Blood Glucose Results, Start date: 10/05/12 17:13:00, Duration: 30 day, Stop date: 11/04/12 17:12:00 insulin 2012-0 No Estela 3 unit, Memor ia aspart 4-20 Young 0.03 mL, l 22:13: Route: [place] 00 SUB-Q, Drug form: SOLN, TID-Before Meals, Dosing Weight 91.818, kg, PRN Blood Glucose Results, Start date: 10/05/12 17:13:00, Duration: 30 day, Stop date: 11/04/12 17:12:00 glucagon 2012-0 No Estela 1 mg, Memori a 4-20 Young Route: IM, l 22:13: Drug form: [place] 00 PDR/INJ, PRN, Dosing Weight 91.818, kg, PRN Blood Glucose Results, Start date: 10/05/12 17:13:00, Duration: 30 day, Stop date: 11/04/12 17:12:00 Dextrose 2013-0 No Estela 12.5 gm, Mem oria 50% [...] Young 0.05 mL, l 16:30: Route: Luke SUB-Q, Drug form: SOLN, TID-Before [...] 4-20 Dionisio tab, l 09:41: Route: PO, [place] 00 Drug form: TAB, ONCE, Dosing Weight [...] 4-20 Dionisio tab, l 09:41: Route: PO, [place] 00 Drug form: TAB, ONCE, Dosing Weight [...] Dionisio mL, Route: l 05:00: IVP, Drug [place] 00 form: INJ, Q6H, Dosing Weight 91.818, kg, Start date: 10/05/12 0:00:00, Duration: 30 day, Stop date: 11/03/12 18:00:00 heparin 2012-0 No [place] 5,000 Mem oria 4-20 n Deniz unit, 1 l 05:00: mL, Route: [place] 00 SUB-Q, Drug form: INJ, Q8H, Dosing Weight 91.818, kg, Start date: 10/05/12 0:00:00, Duration: 30 day, Stop date: 11/03/12 16:00:00 dexamethaso 2012-0 No Dorothy 4 mg, 1 M emoria ne 4-20 Dionisio mL, Route: l 05:00: IVP, Drug [place] 00 form: INJ, Q6H, Dosing Weight 91.818, [...] Deniz unit, 1 l 05:00: mL, Route: [place] 00 SUB-Q, Drug form: INJ, Q8H, Dosing [...] unit, 1 l 05:00: mL, Route: Luke SUB-Q, Drug form: INJ, Q8H, Dosing Weight [...] Deniz unit, 1 l 05:00: mL, Route: [place] 00 SUB-Q, Drug form: INJ, Q8H, Dosing Weight 91.818, kg, Start date: 10/05/12 0:00:00, Duration: 30 day, Stop date: 11/03/12 16:00:00 dexamethaso 2012-0 No Dorothy 4 mg, 1 M emoria ne 4-20 Dionisio mL, Route: l 05:00: IVP, Drug form: INJ, Q6H, Dosing Weight 91.818, kg, Start date: 10/05/12 0:00:00, Duration: 30 day, Stop date: 11/03/12 18:00:00 heparin 2013-0 No [place] 5,000 Mem oria 4-20 n Deniz unit, 1 l 05:00: mL, Route: [place] 00 SUB-Q, Drug form: INJ, Q8H, Dosing Weight 91.818, kg, Start date: 10/05/12 0:00:00, Duration: 30 day, Stop date: 11/03/12 16:00:00 famotidine 2013-0 No Dorothy 20 mg, 1 M emoria 4-20 Dionisio tab, l 02:00: Route: PO, Drug form: TAB, BID, Dosing Weight 91.818, kg, Start date: 10/04/12 21:00:00, Duration: 30 day, Stop date: 11/03/12 9:00:00 famotidine 2013-0 No Dorothy 20 mg, 1 M emoria 4-20 Dionisio tab, l 02:00: Route: PO, [place] 00 Drug form: TAB, BID, Dosing Weight 91.818, kg, Start date: 10/04/12 21:00:00, Duration: 30 day, Stop date: 11/03/12 9:00:00 famotidine 2013-0 No Dorothy 20 mg, 1 M emoria 4-20 Dionisio tab, l 02:00: Route: PO, [place] 00 Drug form: TAB, BID, Dosing Weight 91.818, kg, Start date: 10/04/12 21:00:00, Duration: 30 day, Stop date: 11/03/12 9:00:00 famotidine 2013-0 No Dorothy 20 mg, 1 M emoria 4-20 Dionisio tab, l 02:00: Route: PO, [place] 00 Drug form: TAB, BID, Dosing Weight 91.818, kg, Start date: 10/04/12 21:00:00, Duration: 30 day, Stop date: 11/03/12 9:00:00 famotidine 2013-0 No Dorothy 20 mg, 1 M emoria 4-20 Dionisio tab, l 02:00: Route: PO, [place] 00 Drug form: TAB, BID, Dosing Weight 91.818, kg, Start date: 10/04/12 21:00:00, Duration: 30 day, Stop date: 11/03/12 9:00:00 famotidine 2012-0 No Dorothy 20 mg, 1 M emoria 4-20 Dionisio tab, l 02:00: Route: PO, [place] 00 Drug form: TAB, BID, Dosing Weight 91.818, kg, Start date: 10/04/12 21:00:00, Duration: 30 day, Stop date: 11/03/12 9:00:00 famotidine 2012-0 No Dorothy 20 mg, 1 M emoria 4-20 Dionisio tab, l 02:00: Route: PO, [place] 00 Drug form: TAB, BID, Dosing Weight [...] l 00:54: Grazyna Drug form: Richard n Law PDR/INJ, PRN, Dosing Weight 91.818, kg, PRN Blood Glucose Results, Start date: 10/04/12 19:54:00, Duration: 30 day, Stop date: 11/03/12 19:53:00 Dextrose 2012-0 No Petra 25 gm, 50 Memoria 50% Syringe 4-20 Carmen mL, Route: l 00:54: Grazyna IVP, Drug [place] Alw Form: INJ, Dosing Weight 91.818, kg, PRN, PRN Blood Glucose Results, Start date: 10/04/12 19:54:00, Duration: 30 day, Stop date: 11/03/12 19:53:00 Insulin 2012-0 No Estela 12 unit, Boy tadeo regular 4-20 Young 0.12 mL, l 00:54: Route: [place] 00 SUB-Q, Drug form: SOLN, TID-Before Meals, [...] mL, Route: l 00:54: Grazyna IVP, Drug [place] 00 Law Form: INJ, Dosing Weight 91.818, [...] mL, Route: l 00:54: Grazyna IVP, Drug [place] 00 Law Form: INJ, Dosing Weight 91.818, [...] 30 day, Stop date: 11/03/12 19:53:00 Dextrose 0 No Petra 25 gm, 50 Memoria 50% Syringe 4-20 Carmen mL, Route: l 00:54: Grazyna IVP, Drug [place] 00 Law Form: INJ, Dosing Weight 91.818, kg, PRN, PRN Blood Glucose Results, Start date: 10/04/12 19:54:00, Duration: 30 day, Stop date: 11/03/12 19:53:00 Insulin 2012-0 No Estela 12 unit, Boy tadeo regular 4-20 Young 0.12 mL, l 00:54: Route: [place] 00 SUB-Q, Drug form: SOLN, TID-Before Meals, Dosing Weight 91.818, kg, PRN Blood Glucose Results, Start date: 10/04/12 19:54:00, Duration: 30 day, Stop date: 11/03/12 19:53:00 glucagon 2012-0 No Petar 1 mg, Mem oria 4-20 Carmen Route: [...] mL, Route: l 00:54: Grazyna IVP, Drug [place] 00 Law Form: INJ, Dosing Weight 91.818, [...] Young mL, Route: l 21:00: IVPB, Drug [place] 00 form: INJ, Q2H, Dosing Weight 91.818, kg, Total dose = 4 gm, Start date: 10/04/12 16:00:00, Duration: 2 doses or times, Stop date: 10/04/12 18:00:00 magnesium 2013-0 No Estela 2 gm, 50 Me moria sulfate 4-19 Young mL, Route: l 21:00: IVPB, Drug [place] 00 form: INJ, Q2H, Dosing Weight 91.818, [...] Young mL, Route: l 21:00: IVPB, Drug [place] 00 form: INJ, Q2H, Dosing Weight 91.818, kg, Total dose = 4 gm, Start date: 10/04/12 16:00:00, Duration: 2 doses or times, Stop date: 10/04/12 18:00:00 magnesium 2012-0 No Estela 2 gm, 50 Me moria sulfate 4-19 Young mL, Route: l 21:00: IVPB, Drug [place] 00 form: INJ, Q2H, Dosing Weight 91.818, kg, Total dose = 4 gm, Start date: 10/04/12 16:00:00, Duration: 2 doses or times, Stop date: 10/04/12 18:00:00 magnesium 2012-0 No Estela 2 gm, 50 Me moria sulfate 4-19 Young mL, Route: l 21:00: IVPB, Drug [place] 00 form: INJ, Q2H, Dosing Weight 91.818, kg, Total dose = 4 gm, Start date: 10/04/12 16:00:00, Duration: 2 doses or times, Stop date: 10/04/12 18:00:00 magnesium 2013-0 No Estela 2 gm, 50 Me moria sulfate 4-19 Young mL, Route: l 21:00: IVPB, Drug [place] 00 form: INJ, Q2H, Dosing Weight 91.818, kg, Total dose = 4 gm, Start date: 10/04/12 16:00:00, Duration: 2 doses or times, Stop date: 10/04/12 18:00:00 Ativan 0 No Maisha L 1 mg, 0.5 M emoria 4-19 Michael mL, Route: l 16:52: IVP, Drug [place] 00 form: INJ, ONCE, Dosing Weight 91.818, [...] Michael mL, Route: l 16:52: IVP, Drug [place] 00 form: INJ, ONCE, Dosing Weight 91.818, [...] Anxiety, Start date: 10/04/12 11:52:00 acetaminoph No Maisah L 1 tab, Memoria en-hydrocod 4-19 Michael Route: PO, l one 325 16:52: Drug Form: Herm robert mg-10 mg 00 TAB, oral tablet Dosing Weight 91.818, kg, Q4H, PRN Pain Score 4-6, Start date: 10/04/12 11:52:00, Duration: 30 day, Stop date: 11/03/12 11:51:00 Ativan No Maisha L 1 mg, 0.5 M emoria 4-19 Michael mL, Route: l 16:52: IVP, Drug [place] 00 form: INJ, ONCE, Dosing Weight 91.818, [...] Michael mL, Route: l 16:52: IVP, Drug [place] 00 form: INJ, ONCE, Dosing Weight 91.818, kg, PRN Anxiety, Start date: 10/04/12 11:52:00 acetaminoph 2012-0 No Maisha L 1 tab, Memoria en-hydrocod [...] Mabry Route: PO, l 14:00: Drug form: [place] 00 TAB, Daily, Dosing Weight 91.818, kg, Start date: 10/04/12 9:00:00, Duration: 30 day, Stop date: 11/02/12 9:00:00 Januvia 2012-0 No [place] 100 mg, 1 Memoria 4-19 n Deniz tab, l 14:00: Route: PO, [place] 00 Drug form: TAB, Daily, Dosing Weight 91.818, kg, Start date: 10/04/12 9:00:00, Duration: 30 day, Stop date: 11/02/12 9:00:00 amLODipine 2012-0 No [facility] 10 mg, 1 Memoria 4-19 n Deniz tab, l 14:00: Route: PO, [place] 00 Drug form: TAB, Daily, Dosing Weight [...] Deniz pkt, l [id number] 14:00: Route: PO, [place] 00 Drug form: PWDR, Daily, Dosing Weight 91.818, kg, Start date: 10/04/12 9:00:00, Duration: 30 day, Stop date: 11/02/12 9:00:00 hydrochloro 2012-0 No Leah Yen 25 mg, M harikaripaulino thiazide 4-19 Thi Mabry Route: PO, l 14:00: Drug form: [place] 00 TAB, Daily, Dosing Weight 91.818, kg, [...] Guaman pkt, l 3350 14:00: Route: PO, [place] 00 Drug form: PWDR, Daily, Dosing Weight [...] 30 day, Stop date: 11/02/12 9:00:00 Januvia 0 No [place] 100 mg, 1 Memoria 4-19 [...] Mabry Route: PO, l 14:00: Drug form: [place] 00 TAB, Daily, Dosing Weight 91.818, kg, Start date: 10/04/12 9:00:00, Duration: 30 day, Stop date: 11/02/12 9:00:00 Januvia 0 No [place] 100 mg, 1 Memoria 4-19 [...] 30 day, Stop date: 11/02/12 9:00:00 Lantus 2013-0 No Estela 30 unit, Memor ia 4-19 [...] Stop date: 11/02/12 9:00:00 Zofran 4 mg 2012-0 Yes [facility] 4 mg, 1 [facility] oral tablet 4-19 n Deniz tab, PO, l 13:02: Q8H, 30 [place] 06 tab, Substituti on Allowed Zofran 4 mg 2012-0 Yes [facility] 4 mg, 1 [facility] oral tablet 4-19 n Deniz tab, PO, l 13:02: Q8H, 30 [place] 06 tab, Substituti on Allowed Zofran 4 mg 2012-0 Yes [facility] 4 mg, 1 [facility] oral tablet 4-19 n Deniz tab, PO, l 13:02: Q8H, 30 [place] 06 tab, Substituti on Allowed Zofran 4 mg 2012-0 Yes [facility] 4 mg, 1 [facility] oral tablet 4-19 n Deniz tab, PO, l 13:02: Q8H, 30 [place] 06 tab, Substituti on Allowed Zofran 4 mg 2012-0 Yes [facility] 4 mg, 1 [facility] oral tablet 4-19 n Deniz tab, PO, l 13:02: Q8H, 30 [place] 06 tab, Substituti on Allowed Zofran 4 mg 2012-0 Yes [facility] 4 mg, 1 [facility] oral tablet 4-19 n Deniz tab, PO, l 13:02: Q8H, 30 [place] 06 tab, Substituti on Allowed Zofran 4 [...] PO, Q6H, l tablet 13:00: PRN, 112 [place] 09 tab, Pain, Substituti on Allowed, TAB tramadol 50 Yes [facility] 1 - 2 tab, [facility] mg oral 4-19 n Deniz PO, Q6H, l tablet 13:00: PRN, 112 [place] 09 tab, Pain, Substituti on Allowed, TAB tramadol 50 Yes [facility] 1 - 2 tab, [facility] mg oral 4-19 n Deniz PO, Q6H, l tablet 13:00: PRN, 112 [place] 09 tab, Pain, Substituti on Allowed, TAB tramadol 50 Yes [facility] 1 - 2 tab, [facility] mg oral 4-19 n Deniz PO, Q6H, l tablet 13:00: PRN, 112 [place] 09 tab, Pain, Substituti on Allowed, TAB tramadol 50 Yes [facility] 1 - 2 tab, [facility] mg oral 4-19 n Deniz PO, Q6H, l tablet 13:00: PRN, 112 [place] 09 tab, Pain, Substituti on Allowed, TAB tramadol 50 Yes [facility] 1 - 2 tab, [facility] mg oral 4-19 n Deniz PO, Q6H, l tablet 13:00: PRN, 112 [place] 09 tab, Pain, Substituti on Allowed, TAB [...] tab, Spasm, Substituti on Allowed, TAB cyclobenzap 2012- Yes [facility] 10 mg, 1 [facility] rine [...] 34 tab, Substituti on Allowed, TAB olmesartan 2012- Yes [facility] 40 mg, 1 [facility] 40 [...] Kelly mL, Route: l 08:22: IVP, Drug [place] 00 form: INJ, ONCE, Dosing Weight 91.818, [...] Kelly mL, Route: l 08:22: IVP, Drug [place] 00 form: INJ, ONCE, Dosing Weight 91.818, kg, PRN Insomnia, Start date: 10/04/12 3:22:00 Benadryl 2012-0 No Jui-[facility] 25 mg, 0.5 M emoria 4-19 Edward Kelly mL, Route: l 08:22: IVP, Drug [place] 00 form: INJ, ONCE, Dosing Weight 91.818, kg, PRN Insomnia, Start date: 10/04/12 3:22:00 Benadryl 0 No Jui-En 25 mg, 0.5 M emoria 4-19 Edward Kelly mL, Route: l 08:22: IVP, Drug [place] 00 form: INJ, ONCE, Dosing Weight 91.818, kg, PRN Insomnia, Start date: 10/04/12 3:22:00 Benadryl 2012-0 No Jui-En 25 mg, 0.5 M emoria 4-19 Edward Kelly mL, Route: l 08:22: IVP, Drug [place] 00 form: INJ, ONCE, Dosing Weight 91.818, kg, PRN Insomnia, Start date: 10/04/12 3:22:00 labetalol 2012-0 No Estela 10 mg, 2 Me moria 4-19 Young mL, Route: l 08:05: IVP, Drug [place] 00 form: INJ, Q15Min, Dosing Weight 91.818, kg, PRN Hypertensi on, Start date: 10/04/12 3:05:00, Duration: 30 day, Stop date: 11/03/12 3:04:00 labetalol 0 No Estela 10 mg, 2 Me moria 4-19 Young mL, Route: l 08:05: IVP, Drug [place] 00 form: INJ, Q15Min, Dosing Weight 91.818, kg, PRN Hypertensi on, Start date: 10/04/12 3:05:00, Duration: 30 day, Stop date: 11/03/12 3:04:00 labetalol 2012-0 No Estela 10 mg, 2 Me moria 4-19 Young mL, Route: l 08:05: IVP, Drug [place] 00 form: INJ, Q15Min, Dosing Weight 91.818, kg, PRN Hypertensi on, Start date: 10/04/12 3:05:00, Duration: 30 day, Stop date: 11/03/12 3:04:00 labetalol 0 No Estela 10 mg, 2 Me moria 4-19 Young mL, Route: l 08:05: IVP, Drug [place] 00 form: INJ, Q15Min, Dosing Weight 91.818, kg, PRN Hypertensi on, Start date: 10/04/12 3:05:00, Duration: 30 day, Stop date: 11/03/12 3:04:00 labetalol 0 No Estela 10 mg, 2 [...] 30 day, Stop date: 11/03/12 3:04:00 labetalol 0 No Estela 10 mg, 2 Me moria 4-19 Young mL, Route: l 08:05: IVP, Drug [place] 00 form: INJ, Q15Min, Dosing Weight 91.818, kg, PRN Hypertensi on, Start date: 10/04/12 3:05:00, Duration: 30 day, Stop date: 11/03/12 3:04:00 hydrALAZINE 2012-0 No [facility] 10 mg, 0.5 Memoria 4-19 n Deniz mL, Route: l 05:16: IV, Drug [place] 00 form: INJ, Q6H, Dosing Weight 91.818, kg, PRN Elevated BP, Start date: 10/04/12 0:16:00, Duration: 30 day, Stop date: 11/03/12 0:15:00 hydrALAZINE 2012-0 No [facility] 10 mg, 0.5 Memoria 4-19 n Deniz mL, Route: l 05:16: IV, Drug [place] 00 form: INJ, Q6H, Dosing Weight 91.818, kg, PRN Elevated BP, Start date: 10/04/12 0:16:00, Duration: 30 day, Stop date: 11/03/12 0:15:00 hydrALAZINE 2012-0 No [facility] 10 mg, 0.5 Memoria 4-19 n Deniz mL, Route: l 05:16: IV, Drug [place] 00 form: INJ, Q6H, Dosing Weight 91.818, kg, PRN Elevated BP, Start date: 10/04/12 0:16:00, Duration: 30 day, Stop date: 11/03/12 0:15:00 hydrALAZINE 2012-0 No [facility] 10 mg, 0.5 Memoria 4-19 n Deniz mL, Route: l 05:16: IV, Drug [place] 00 form: INJ, Q6H, Dosing Weight 91.818, kg, PRN Elevated BP, Start date: 10/04/12 0:16:00, Duration: 30 day, Stop date: 11/03/12 0:15:00 hydrALAZINE 2012-0 No [facility] 10 mg, 0.5 Memoria 4-19 n Deniz mL, Route: l 05:16: IV, Drug [place] 00 form: INJ, Q6H, Dosing Weight 91.818, kg, PRN Elevated BP, Start date: 10/04/12 0:16:00, Duration: 30 day, Stop date: 11/03/12 0:15:00 hydrALAZINE 2012-0 No [facility] 10 mg, 0.5 Memoria 4-19 n Deniz mL, Route: l 05:16: IV, Drug [place] 00 form: INJ, Q6H, Dosing Weight 91.818, [...] 4-19 Young tab, l 02:00: Route: PO, [place] 00 Drug form: TAB, Q12H, Dosing Weight 91.818, kg, Start date: 10/03/12 21:00:00, Stop date: 11/02/12 9:00:00 Saline 2012-0 No [facility] 5 ml, Boy tadeo Flush 0.9% -19 n Deniz Route: l 02:00: IVP, Drug Form: INJ, Dosing Weight 91.818, kg, Q12H, Start date: 10/03/12 21:00:00, Duration: 30 day, Stop date: 11/02/12 9:00:00 docusate 2012-0 No [facility] 100 mg, 1 Memoria 4-19 n Deniz cap, l 02:00: Route: PO, [place] 00 Drug form: CAP, Q12H, Dosing Weight 91.818, kg, Start date: 10/03/12 21:00:00, Duration: 30 day, Stop date: 11/02/12 9:00:00 senna 2012-0 No [facility] 8.6 mg, 1 M emoria 4-19 n Deniz tab, l 02:00: Route: PO, [place] 00 Drug Form: TAB, Dosing Weight 91.818, kg, Q12H, Start date: 10/03/12 21:00:00, Duration: 30 day, Stop date: 11/02/12 9:00:00 carvedilol 2012-0 No Estela 12.5 mg, 1 Memoria 4-19 Young tab, l 02:00: Route: PO, [place] 00 Drug form: TAB, Q12H, Dosing Weight [...] n Deniz cap, l 02:00: Route: PO, Drug form: CAP, Q12H, Dosing Weight 91.818, kg, Start date: 10/03/12 21:00:00, Duration: 30 day, Stop date: 11/02/12 9:00:00 senna 2012-0 No [facility] 8.6 mg, 1 M emoria 4-19 n Deniz tab, l 02:00: Route: PO, Drug [...] n Deniz tab, l 02:00: Route: PO, [place] 00 Drug Form: TAB, Dosing Weight 91.818, kg, Q12H, Start date: 10/03/12 21:00:00, Duration: 30 day, Stop date: 11/02/12 9:00:00 carvedilol 2012-0 No Estela 12.5 mg, 1 Memoria 4-19 Young tab, l 02:00: Route: PO, Drug form: TAB, Q12H, Dosing Weight 91.818, kg, Start date: 10/03/12 21:00:00, Stop date: 11/02/12 9:00:00 Saline 2012-0 No [facility] 5 ml, Boy tadeo Flush 0.9% - donna Deniz Route: l 02:00: IVP, Drug Form: INJ, Dosing Weight 91.818, kg, Q12H, Start date: 10/03/12 21:00:00, Duration: 30 day, Stop date: 11/02/12 9:00:00 docusate 2012-0 No [facility] 100 mg, 1 Memoria 4-19 n Deniz cap, l 02:00: Route: PO, Drug form: CAP, Q12H, Dosing Weight 91.818, kg, Start date: 10/03/12 21:00:00, Duration: 30 day, Stop date: 11/02/12 9:00:00 senna 2012-0 No [facility] 8.6 mg, 1 M emoria 4-19 donna Deniz tab, l 02:00: Route: PO, Drug Form: TAB, Dosing Weight 91.818, kg, Q12H, Start date: 10/03/12 21:00:00, Duration: 30 day, Stop date: 11/02/12 9:00:00 carvedilol 2012-0 No Etsela 12.5 mg, 1 Memoria 4-19 Young tab, [...] donna Guaman tab, l 02:00: Route: PO, [place] 00 Drug Form: TAB, Dosing Weight 91.818, [...] day, Stop date: 10/04/12 12:00:00 Ancef + 2013-0 No [facility] 2 gm, Mem oria Sodium [...] Stop date: 10/04/12 12:00:00 Ancef + No -Joseo 2 gm, Mem oria Sodium 4-19 n [...] 1 day, Stop date: 10/04/12 12:00:00 tramadol 2012- No Maisha L 50 mg, 1 Memoria [...] 10/03/12 18:56:00, Stop date: 11/02/12 18:55:00 tramadol 2013-0 No Maisha L 50 mg, [...] Carmen 25 mL, l 23:18: Grazyna Route: [place] 00 Law IVP, Drug Form: INJ, Dosing Weight 91.818, kg, PRN, PRN Abnormal Lab Result, Start date: 10/03/12 18:18:00, Duration: 30 day, Stop date: 11/02/12 18:17:00 insulin 2013-0 No Petra 5 unit, Me moria regular [...] Carmen 25 mL, l 23:18: Grazyna Route: [place] 00 Law IVP, Drug Form: INJ, Dosing [...] Carmen 25 mL, l 23:18: Grazyna Route: [place] 00 Law IVP, Drug Form: INJ, Dosing [...] 30 day, Stop date: 11/02/12 18:17:00 hydrALAZINE 2012- No [facility] 20 mg, 1 Memoria 4-18 n Deniz mL, Route: l 23:14: IVP, Drug [place] 00 form: INJ, Q4H, Dosing Weight 91.818, [...] Deniz mL, Route: l 23:14: IVP, Drug [place] 00 form: INJ, Q15Min, Dosing Weight 91.818, kg, PRN Elevated BP, Start date: 10/03/12 18:14:00, Duration: 3 doses or times, Stop date: 10/04/12 0:00:00, SBP > 150 mmHg hydrALAZINE 2012-0 No [facility] 20 mg, 1 Memoria 4-18 n Deniz mL, Route: l 23:14: IVP, Drug [place] 00 form: INJ, Q4H, Dosing Weight 91.818, [...] Deniz mL, Route: l 23:14: IVP, Drug [place] 00 form: INJ, Q15Min, Dosing Weight 91.818, kg, PRN Elevated BP, Start date: 10/03/12 18:14:00, Duration: 3 doses or times, Stop date: 10/04/12 0:00:00, SBP > 150 mmHg hydrALAZINE 2012-0 No [facility] 20 mg, 1 Memoria 4-18 n Deniz mL, Route: l 23:14: IVP, Drug [place] 00 form: INJ, Q4H, Dosing Weight 91.818, kg, PRN Other -See Comment, Start date: 10/03/12 18:14:00, Duration: 30 day, Stop date: 11/02/12 18:13:00, SBP > 150 mmHg labetalol 2012-0 No [facility] 20 mg, 4 Memoria 4-18 n Deniz mL, Route: l 23:14: IVP, Drug [place] 00 form: INJ, Q15Min, Dosing Weight 91.818, [...] Deniz mL, Route: l 23:14: IVP, Drug [place] 00 form: INJ, Q15Min, Dosing Weight 91.818, [...] n Deniz 0.5 mL, l 23:04: Route: [place] 00 IVP, Drug form: INJ, Q5Min, PRN Narcotic Reversal, Start date: 10/03/12 18:04:00, Duration: 30 day, Stop date: 11/02/12 18:03:00 naloxone No [facility] 0.2 mg, Memoria 4-18 n Deniz 0.5 mL, l 23:04: Route: [place] 00 IVP, Drug form: INJ, Q5Min, PRN Narcotic Reversal, Start date: 10/03/12 18:04:00, Duration: 30 day, Stop date: 11/02/12 18:03:00 naloxone 0 No [facility] 0.2 mg, Memoria 4-18 n Deniz 0.5 mL, l 23:04: Route: [place] 00 IVP, Drug form: INJ, Q5Min, PRN [...] 30 day, Stop date: 11/02/12 18:03:00 naloxone 2013-0 No [facility] 0.2 mg, Memoria 4-18 n Deniz 0.5 mL, l 23:04: Route: [place] 00 IVP, Drug form: INJ, Q5Min, PRN Narcotic Reversal, Start date: 10/03/12 18:04:00, Duration: 30 day, Stop date: 11/02/12 18:03:00 hydrALAZINE 2012-0 No Kahlil 20 mg, Memoria 4-18 Eng Route: l 22:15: IVP, ONCE, [place] 00 Dosing Weight 91.818, kg, Start date: 10/03/12 17:15:00, Stop date: 10/03/12 17:15:00 hydrALAZINE 2012-0 No Kahlil 20 mg, Memoria 4-18 Eng Route: l 22:15: IVP, ONCE, [place] 00 Dosing Weight 91.818, kg, Start date: 10/03/12 17:15:00, Stop date: 10/03/12 17:15:00 hydrALAZINE 2012-0 No Kahlil 20 mg, Memoria 4-18 Eng Route: l 22:15: IVP, ONCE, [place] 00 Dosing Weight 91.818, kg, Start date: 10/03/12 17:15:00, Stop date: 10/03/12 17:15:00 hydrALAZINE 2013-0 No Kahlil 20 mg, Memoria 4-18 Eng Route: l 22:15: IVP, ONCE, [place] 00 Dosing Weight 91.818, kg, Start date: 10/03/12 17:15:00, Stop date: 10/03/12 17:15:00 hydrALAZINE 2013-0 No Kahlil 20 mg, Memoria 4-18 Eng [...] n Deniz tab, l 21:00: Route: PO, [place] 00 Drug form: TAB, Q8H, Dosing Weight 91.818, kg, Start date: 10/03/12 16:00:00, Duration: 30 day, Stop date: 11/02/12 8:00:00 diazepam 2012-0 No [facility] 5 mg, 1 Memoria 4-18 n Deniz tab, l 21:00: Route: PO, [place] 00 Drug form: TAB, Q8H, Dosing Weight 91.818, kg, Start date: 10/03/12 16:00:00, Duration: 30 day, Stop date: 11/02/12 8:00:00 diazepam 2012-0 No [facility] 5 mg, 1 Memoria 4-18 n Deniz tab, l 21:00: Route: PO, [place] 00 Drug form: TAB, Q8H, Dosing Weight [...] Stop date: 10/04/12 0:00:00 labetalol 2012-0 No Kahlli 5 mg, 1 M emoria 4-18 Eng [...] 4-18 Eng 0.1 mL, l 20:54: Route: [place] 00 IVP, Drug form: INJ, Q2MIN, Dosing [...] Stop date: 10/04/12 0:00:00 labetalol 2012- No Kalhil 5 mg, 1 M emoria 4-18 Eng mL, Route: l 20:54: IVP, Drug form: INJ, Q5Min, Dosing Weight 91.818, kg, PRN Elevated BP, Start date: 10/03/12 15:54:00, Duration: 5 doses or times, Stop date: 10/04/12 0:00:00 ondansetron 2012- No Kahlil 4 mg, 2 Memoria 4-18 Eng mL, Route: l 20:54: IVP, Drug form: INJ, ONCE, Dosing Weight 91.818, kg, PRN Nausea & Vomiting, Start date: 10/03/12 15:54:00 promethazin 2012- No Kahlil 6.25 mg, Memoria e 4-18 Eng 0.25 mL, l 20:54: Route: [place] 00 IVPB, Drug form: INJ, ONCE, Dosing [...] or times, Stop date: 10/04/12 0:00:00 ondansetron 2012- No Kahlil 4 mg, 2 Memoria 4-18 Eng mL, Route: l 20:54: IVP, Drug form: INJ, ONCE, Dosing Weight 91.818, kg, PRN Nausea & Vomiting, Start date: 10/03/12 15:54:00 promethazin 2012- No Kahlil 6.25 mg, Memoria e 4-18 Eng 0.25 mL, l 20:54: Route: 00 IVPB, Drug form: INJ, ONCE, Dosing [...] 4-18 Eng 0.1 mL, l 20:54: Route: [place] 00 IVP, Drug form: INJ, Q2MIN, Dosing [...] 4-18 Eng 0.25 mL, l 20:54: Route: [place] 00 IVPB, Drug form: INJ, ONCE, Dosing [...] 0.5mg/mL 18 n Deniz mL, Route: l SAL[employer]ELOPMENT ASSOCIATE 17:00: IV, SALES [employer]ELOPMENT ASSOCIATE [place] (15mg/30 00 Dose: 0.3 mL) 15 mg mg, SALES DEVELOPMENT ASSOCIATE Lockout: 15 minutes, 4 Hour Limit (In MG): 4.8, Drug Form: INJ, Continuous , Start date: 10/03/12 12:00:00, Stop date: 11/02/12 11:59:00 HYDROmorpho 2012-0 No [facility] 15 mg, 30 Memoria ne 0.5mg/mL 4-18 n Deniz mL, Route: l SALES DEVELOPMENT ASSOCIATE 17:00: IV, SALES DEVELOPMENT ASSOCIATE [place] (15mg/30 00 Dose: 0.3 mL) 15 mg mg, SALES DEVELOPMENT ASSOCIATE Lockout: 15 minutes, 4 Hour Limit (In MG): 4.8, Drug Form: INJ, Continuous , Start date: 10/03/12 12:00:00, Stop date: 11/02/12 11:59:00 HYDROmorpho 2012-0 No [facility] 15 mg, 30 Memoria ne 0.5mg/mL 4-18 n Deniz mL, Route: l SALES DEVELOPMENT ASSOCIATE 17:00: IV, SALES DEVELOPMENT ASSOCIATE [place] (15mg/30 00 Dose: 0.3 mL) 15 mg mg, SALES DEVELOPMENT ASSOCIATE Lockout: 15 minutes, 4 Hour Limit (In MG): 4.8, Drug Form: INJ, Continuous , Start date: 10/03/12 12:00:00, Stop date: 11/02/12 11:59:00 HYDROmorpho 0 No [facility] 15 mg, 30 Memoria ne 0.5mg/mL 4-18 n Deniz mL, Route: l SALES DEVELOPMENT ASSOCIATE 17:00: IV, SALES DEVELOPMENT ASSOCIATE [place] (15mg/30 00 Dose: 0.3 mL) 15 mg mg, SALES DEVELOPMENT ASSOCIATE Lockout: 15 minutes, 4 Hour Limit (In MG): 4.8, Drug Form: INJ, Continuous , Start date: 10/03/12 12:00:00, Stop date: 11/02/12 11:59:00 HYDROmorpho 2012-0 No [facility] 15 mg, 30 Memoria ne 0.5mg/mL 4-18 n Dneiz mL, Route: l SALES DEVELOPMENT ASSOCIATE 17:00: IV, SALES DEVELOPMENT ASSOCIATE [place] (15mg/30 00 Dose: 0.3 mL) 15 mg mg, SALES DEVELOPMENT ASSOCIATE Lockout: 15 minutes, 4 Hour Limit (In MG): 4.8, Drug Form: INJ, Continuous , Start date: 10/03/12 12:00:00, Stop date: 11/02/12 11:59:00 HYDROmorpho 2012- No [facility] 15 mg, 30 Memoria ne 0.5mg/mL 4-18 n Deniz mL, Route: l SALES DEVELOPMENT ASSOCIATE 17:00: IV, SALES DEVELOPMENT ASSOCIATE [place] (15mg/30 00 Dose: 0.3 mL) 15 mg mg, SALES DEVELOPMENT ASSOCIATE Lockout: 15 minutes, 4 Hour Limit (In MG): 4.8, Drug Form: INJ, Continuous , Start date: 10/03/12 12:00:00, Stop date: 11/02/12 11:59:00 HYDROmorpho No [facility] 15 mg, 30 Memoria ne 0.5mg/mL 4-18 n Deniz mL, Route: l SALES DEVELOPMENT ASSOCIATE 17:00: IV, SALES DEVELOPMENT ASSOCIATE [place] (15mg/30 00 Dose: 0.3 mL) 15 mg mg, SALES DEVELOPMENT ASSOCIATE Lockout: 15 minutes, 4 Hour Limit (In MG): 4.8, Drug Form: INJ, Continuous , Start date: 10/03/12 12:00:00, Stop date: 11/02/12 11:59:00 Saline No [facility] 5 ml, Boy tadeo Flush 0.9% 4-18 n Deniz Route: l 16:42: IVP, Drug [place] 00 Form: INJ, Dosing Weight 91.818, kg, PRN, PRN Line Flush, Start date: 10/03/12 11:42:00, Duration: 30 day, Stop date: 11/02/12 11:41:00 ondansetron No [facility] 4 mg, 2 Memoria 4-18 n Deniz mL, Route: l 16:42: IVP, Drug [place] 00 form: INJ, Q8H, Dosing Weight 91.818, [...] Deniz Route: l 16:42: IVP, Drug [place] Form: INJ, Dosing Weight 91.818, kg, PRN, [...] Deniz mL, Route: l 16:42: IVP, Drug [place] 00 form: INJ, Q8H, Dosing Weight 91.818, kg, PRN Nausea & Vomiting, Start date: 10/03/12 11:42:00, Duration: 30 day, Stop date: 11/02/12 11:41:00 acetaminoph No [facility] 650 mg, Memoria en 4-18 n Deniz 20.3 mL, l 16:42: Route: PO, [place] 00 Drug form: LIQ, Q4H, Dosing Weight [...] n Deniz Route: l 16:42: IVP, Drug [place] 00 Form: INJ, Dosing Weight 91.818, kg, PRN, PRN Line Flush, Start date: 10/03/12 11:42:00, Duration: 30 day, Stop date: 11/02/12 11:41:00 ondansetron 2012- No [facility] 4 mg, 2 Memoria 4-18 n Deniz mL, Route: l 16:42: IVP, Drug [place] 00 form: INJ, Q8H, Dosing Weight 91.818, [...] n Deniz Route: l 16:42: IVP, Drug [place] 00 Form: INJ, Dosing Weight 91.818, kg, [...] Deniz 20.3 mL, l 16:42: Route: PO, [place] 00 Drug form: LIQ, Q4H, Dosing Weight [...] M emoria 4-18 on Allowed l 15:03: [place] 22 amLODipine Yes Substituti M emoria 4-18 on Allowed l 15:03: [place] 22 amLODipine Yes Substituti M emoria 4-18 on Allowed l 15:03: amLODipine Yes Substituti M emoria 4-18 on Allowed l 15:03: [place] 22 amLODipine Yes Substituti M emoria 4-18 on Allowed l 15:03: [place] 22 amLODipine Yes Substituti M emoria 4-18 on Allowed l 15:03: [place] 22 amLODipine Yes Substituti M emoria 4-18 on [...] date: 10/04/12 4:59:00 NS + KCL No Kreon 1,000 mL, M emoria 20mEq/L 4-18 Gabbie [...] Stop date: 10/04/12 4:59:00 NS + KCL 0 No Keron 1,000 mL, M emoria 20mEq/L [...] day, Stop date: 10/04/12 4:59:00 Vicodin HP 2013-0 Yes PO, PRN, Mem oria 10 mg-300 4-16 Substituti l mg oral 21:32: on [place] tablet 18 Allowed, Maintenanc e Vicodin HP 2013-0 Yes PO, PRN, Mem oria 10 mg-300 4-16 Substituti l mg oral 21:32: on [place] tablet 18 Allowed, Maintenanc e Vicodin HP 2013-0 Yes PO, PRN, Mem oria 10 mg-300 4-16 Substituti l mg oral 21:32: on [place] tablet 18 Allowed, Maintenanc e Vicodin HP 2013-0 Yes PO, PRN, Mem oria 10 mg-300 4-16 Substituti l mg oral 21:32: on [place] tablet 18 Allowed, Maintenanc e Vicodin HP 2013-0 Yes PO, PRN, Mem oria 10 mg-300 4-16 Substituti l mg oral 21:32: on Luke tablet 18 Allowed, Maintenanc e Vicodin HP 2013-0 Yes PO, PRN, Mem oria 10 mg-300 4-16 Substituti l mg oral 21:32: on Luke tablet 18 Allowed, Maintenanc e Vicodin HP 2013-0 Yes PO, PRN, Mem oria 10 mg-300 4-16 Substituti l mg oral 21:32: on [place] tablet 18 Allowed, Maintenanc e Dulcolax 2013-0 Yes 1 supp, Memori a Laxative 4-16 ME, Daily, l 21:32: PRN, 5 [place] 02 supp, constipati on, Substituti on Allowed, SUPP Dulcolax 2013-0 Yes 1 supp, Memori a Laxative 4-16 ME, Daily, l 21:32: PRN, 5 [place] 02 supp, constipati on, Substituti on Allowed, SUPP Dulcolax 2013-0 Yes 1 supp, Memori a Laxative 4-16 ME, Daily, l 21:32: PRN, 5 [place] 02 supp, constipati on, Substituti on Allowed, SUPP Dulcolax 2013-0 Yes 1 supp, Memori a Laxative 4-16 ME, Daily, l 21:32: PRN, 5 [place] 02 supp, constipati on, Substituti on Allowed, SUPP Dulcolax Yes 1 supp, Memori a Laxative 4-16 ME, Daily, l 21:32: PRN, 5 [place] 02 supp, constipati on, Substituti on Allowed, SUPP Dulcolax Yes 1 supp, Memori a Laxative 4-16 ME, Daily, l 21:32: PRN, 5 [place] 02 supp, constipati on, Substituti on Allowed, SUPP Dulcolax Yes 1 supp, Memori a Laxative 4-16 ME, Daily, l 21:32: PRN, 5 [place] 02 supp, constipati on, Substituti on Allowed, SUPP clonidine Yes [facility] PO, QID, Memoria 0.1 mg oral 4-16 n Deniz prn l tablet 21:31: bp>160, [place] 30 Substituti on [id number] clonidine Yes [facility] PO, QID, Memoria 0.1 mg oral 4-16 n Deniz prn l tablet 21:31: bp>160, [place] 30 Substituti on [id number] clonidine Yes [facility] PO, QID, Memoria 0.1 mg oral 4-16 n Deniz prn l tablet 21:31: bp>160, [place] 30 Substituti on [id number] clonidine Yes [facility] PO, QID, Memoria 0.1 mg oral 4-16 n Deniz prn l tablet 21:31: bp>160, [place] 30 Substituti on [id number] clonidine Yes [facility] PO, QID, Memoria 0.1 mg oral 4-16 n Deniz prn l tablet 21:31: bp>160, [place] 30 Substituti on [id number] clonidine Yes [facility] PO, QID, Memoria 0.1 mg oral 4-16 n Deniz prn l tablet 21:31: bp>160, [place] 30 Substituti on [id number] clonidine Yes [facility] PO, QID, Memoria 0.1 mg oral 4-16 n Deniz prn l tablet 21:31: bp>160, [place] 30 Substituti on [id number] Benicar HCT Yes 1 tab, PO, Memoria 12.5 mg-40 4-16 Daily, 30 l mg oral 21:30: tab, [place] tablet 43 Substituti on Allowed, Maintenanc e, [...] Daily, 30 l mg oral 21:30: tab, [place] tablet 43 Substituti on Allowed, Maintenanc e, [...] tab, PO, l tablet 21:30: Q12H, 60 [place] 29 tab, Substituti on Allowed, TAB carvedilol Yes [facility] 25 mg, 1 Memoria 25 mg oral 4-16 n Deniz tab, PO, l tablet 21:30: Q12H, 60 [place] 29 tab, Substituti on Allowed, TAB carvedilol Yes [facility] 25 mg, 1 Memoria 25 mg oral 4-16 n Deniz tab, PO, l tablet 21:30: Q12H, 60 [place] 29 tab, Substituti on Allowed, TAB carvedilol [...] tab, PO, l tablet 21:30: Q12H, 60 [place] 29 tab, Substituti on Allowed, TAB carvedilol Yes [facility] 25 mg, 1 Memoria 25 mg oral 4-16 n Deniz tab, PO, l tablet 21:30: Q12H, 60 [place] 29 tab, Substituti on Allowed, TAB Januvia [...] tab, Substituti on Allowed, TAB Januvia 100 2013-0 Yes [facility] 100 mg, 1 Memoria mg oral 4-16 n Deniz tab, PO, l tablet 21:30: Daily, 30 Richard n 10 tab, Substituti on Allowed, TAB Lantus 2013-0 Yes 22 unit, Memoria 4-16 SUB-Q, l 21:29: Bedtime, [place] 53 Substituti on Allowed Lantus 2013-0 Yes 22 unit, Memoria 4-16 SUB-Q, l 21:29: Bedtime, [place] 53 Substituti on Allowed Lantus 2013-0 Yes 22 unit, Memoria 4-16 SUB-Q, l 21:29: Bedtime, [place] 53 Substituti on Allowed Lantus 2013-0 Yes 22 unit, Memoria 4-16 SUB-Q, l 21:29: Bedtime, [place] 53 Substituti on Allowed Lantus 2013-0 Yes 22 unit, Memoria 4-16 SUB-Q, l 21:29: Bedtime, [place] 53 Substituti on Allowed Lantus 2013-0 Yes 22 unit, Memoria 4-16 SUB-Q, l 21:29: Bedtime, [place] 53 Substituti on Allowed Lantus 2013-0 Yes 22 unit, Memoria 4-16 SUB-Q, l 21:29: Bedtime, [place] 53 Substituti on Allowed glimepiride 2013-0 Yes [...] WARD 00 by other Sports MD Miles ramirezmepiride glimepiride 2010-06 No glimepirid Arlin 4 mg tablet 4 mg tablet 0-25 e 4 mg [facility] RX by other RX by other 00:00: tablet RX dic MD WADR 00 by other Sports MD Miles pennington [...] No ID NOW Arlin COVID-19 COVID-19 COVID-19 Met crane Test Kit Test Kit Test Kit dic TEST TEST TEST Sports DIRECTED DIRECTED DIRECTED Med icin TODAY TODAY TODAY e irbesartan irbesartan No irbesartan Arlin 300 mg 300 mg 300 mg [facility] tablet RX tablet RX tablet RX dic by other MD by other MD by other Sports MD Rajesh Noe No Hasmukh Montes De Ocalea XR [...] other MD by other Sports Medicin e Hasmukh Noe No Hasmukh Arlin [...] RX by other RX by dic MD WARD other Sports Medicin e DulcoEase DulcoEase No DulcoEase Ralin 100 mg 100 mg 100 mg [facility] [...] other MD by other Sports Medicin e Hasmukh Noe No Noemyeto Arlin XR 5 XR 5 XR 5 [...] tablet tablet aspirin,buf aspirin,buf No 81mg aspirin,bu Arlin fered fered ffered [facility] (calcium (calcium (calcium [...] by other MD by other MD by kathy Muir MD Medicin e ezetimibe ezetimibe No ezetimibe [...] oral Sports route. route. route. Medicin e Noemyeto Darbytadueto No Darbytadueto Arlin XR 5 XR 5 XR 5 [...] ID NOW Arlin COVID-19 COVID-19 COVID-19 Ort crane Test Kit Test Kit Test Kit dic [...] RX by other tablet RX dic MD by other Sports MD Medicin e [...] MD by other MD by other e MD metFORMIN metFORMIN Yes UT HCl - 500 HCl - 500 Physi ci MG Oral MG Oral ans Tablet Tablet Tresiba Tresiba Yes UT FlexTouch FlexTouch Physi ci 100 UNIT/ML 100 UNIT/ML a ns Subcutaneou Subcutaneou s Solution s Solution Pen-injecto Pen-injecto r r Accu-Chek Accu-Chek No Accu-Chek [facility] Fior Meter Fior Meter Fior Family Meter Practic e Tradjenta 5 Tradjenta 5 Yes U T MG Oral MG Oral Physici Tablet Tablet ans Accu-Chek Accu-Chek No Accu-Chek [facility] Fior Plus Fior Plus Fior Plus Family test strips test strips test P ractic TEST 3 TEST 3 strips e TIMES A DAY TIMES A DAY TEST 3 DIRECTED DIRECTED TIMES A DAY DIRECTED Accu-Chek Accu-Chek No Accu-Chek [facility] Fastclix Fastclix Fastclix Fam gail Lancet Drum Lancet Drum Lancet Practic USE USE Drum USE e DIRECTED 3 DIRECTED 3 TIMES DAILY TIMES DAILY DIRECTED 3 TIMES DAILY Accu-Chek Accu-Chek No Accu-Chek [facility] FastClix FastClix FastClix Fam gail Lancing Lancing Lancing Practi c Device Device Device e acetaminoph acetaminoph No acetaminop [facility] en 300 en 300 hen 300 Family mg-codeine mg-codeine mg-codeine Practic 60 mg 60 mg 60 mg e tablet TAKE tablet TAKE tablet 1 TABLET BY 1 TABLET BY TAKE 1 MOUTH EVERY MOUTH EVERY TABLET BY 6 HOURS 6 HOURS MOUTH NEEDED NEEDED EVERY 6 HOURS NEEDED acyclovir acyclovir No acyclovir [facility] 800 mg 800 mg 800 mg Family tablet tablet tablet Practic e alprazolam alprazolam No alprazolam [facility] 0.25 mg 0.25 mg 0.25 mg [...] DAILY TIMES DAILY carvedilol carvedilol No carvedilol [facility] 12.5 mg 12.5 mg 12.5 mg Family tablet TAKE tablet TAKE tablet Practic 1 TABLET BY 1 TABLET BY TAKE 1 e MOUTH TWICE MOUTH TWICE TABLET BY A DAY A DAY MOUTH TWICE A DAY carvedilol carvedilol No carvedilol [facility] 25 mg 25 mg 25 mg Family tablet TAKE tablet TAKE tablet Practic 1 TABLET BY 1 TABLET BY TAKE 1 e MOUTH TWICE MOUTH TWICE TABLET BY A DAY A DAY MOUTH TWICE A DAY Trulicity Trulicity Yes UT 0.75 0.75 Physici MG/0.5ML MG/0.5ML ans Subcutaneou Subcutaneou s Solution s Solution Pen-injecto Pen-injecto r r cinacalcet cinacalcet No cinacalcet [facility] 30 mg 30 mg 30 mg Family tablet TAKE tablet TAKE tablet Practic 1 TABLET BY 1 TABLET BY TAKE 1 e MOUTH TWICE MOUTH TWICE TABLET BY A DAY A DAY MOUTH TWICE A DAY clonidine clonidine No clonidine [facility] HCl 0.1 mg HCl 0.1 mg [...] DIRECTED DIRECTED DIRECTED ezetimibe ezetimibe No ezetimibe [facility] 10 mg 10 mg 10 mg Family tablet TAKE tablet TAKE tablet Practic 1 TABLET BY 1 TABLET BY TAKE 1 e MOUTH EVERY MOUTH EVERY TABLET BY DAY DAY MOUTH EVERY DAY furosemide furosemide No furosemide [facility] 20 mg 20 mg 20 mg Family tablet TAKE tablet TAKE tablet Practic 1 TABLET BY 1 TABLET BY TAKE 1 e MOUTH EVERY MOUTH EVERY TABLET BY DAY DAY MOUTH EVERY DAY gabapentin gabapentin No gabapentin [facility] 300 mg 300 mg 300 mg [...] 1:30; TDD 50 hydralazine hydralazine No hydralazin [facility] 25 mg 25 mg e 25 mg Family tablet TAKE tablet TAKE tablet Practic 1 TABLET BY 1 TABLET BY TAKE 1 e MOUTH TWICE MOUTH TWICE TABLET BY A DAY A DAY MOUTH TWICE A DAY hydrocodone hydrocodone No hydrocodon [facility] 5 5 e 5 Family mg-acetamin mg-acetamin mg-acetami Practic ophen 325 ophen 325 nophen 325 e mg tablet mg tablet mg tablet TAKE 1 TAKE 1 TAKE 1 TABLET BY TABLET BY TABLET BY MOUTH EVERY MOUTH EVERY MOUTH 6 HOURS 6 HOURS EVERY 6 NEEDED NEEDED HOURS NEEDED amLODIPine amLODIPine Yes [facility] Besylate 5 Besylate 5 Phy sici MG Oral MG Oral ans Tablet Tablet ID NOW ID NOW No ID NOW [facility] COVID-19 COVID-19 COVID-19 Fam gail Test Kit Test Kit Test Kit Pra ctic TEST TEST TEST e DIRECTED DIRECTED DIRECTED TODAY TODAY TODAY [facility] XR 5 XR 5 XR 5 Family mg-1,000 mg mg-1,000 mg mg-1,000 Practic tablet, tablet, mg tablet, e extended extended extended release release release TAKE 1 TAKE 1 TAKE 1 TABLET BY TABLET BY TABLET BY MOUTH EVERY MOUTH EVERY MOUTH DAY IN THE DAY IN THE EVERY DAY MORNING MORNING IN THE MORNING lisinopril lisinopril No lisinopril [facility] 20 mg 20 mg 20 mg [...] Family Practic e nifedipine nifedipine No nifedipine [facility] [...] INCREASE INCREASE MORNING DIRECTED DIRECTED INCREASE DIRECTED Carvedilol Carvedilol Yes [facility] 25 MG Oral 25 MG Oral Phy sici Tablet Tablet ans valsartan valsartan No valsartan [facility] 320 mg 320 mg 320 mg Family tablet TAKE tablet TAKE tablet Practic 1 TABLET BY 1 TABLET BY TAKE 1 e MOUTH EVERY MOUTH EVERY TABLET BY DAY DAY MOUTH EVERY DAY Vitamin D3 Vitamin D3 No Vitamin D3 [facility] Family Practic e Accu-Chek Accu-Chek No Accu-Chek [facility] Fior Meter Fior Meter Fior Family Meter Practic e Accu-Chek Accu-Chek No Accu-Chek [facility] Fior Plus Fior Plus Fior Plus Family test strips test strips test P ractic TEST 3 TEST 3 strips e TIMES A DAY TIMES A DAY TEST 3 DIRECTED DIRECTED TIMES A DAY DIRECTED Accu-Chek Accu-Chek No Accu-Chek [facility] Fastclix Fastclix Fastclix Fam gail Lancet Drum Lancet Drum Lancet Practic USE USE Drum USE e DIRECTED 3 DIRECTED 3 TIMES DAILY TIMES DAILY DIRECTED 3 TIMES DAILY Accu-Chek Accu-Chek No Accu-Chek [facility] FastClix FastClix FastClix Fam gail Lancing Lancing Lancing Practi c Device Device Device e acetaminoph acetaminoph No acetaminop [facility] en 300 en 300 hen 300 Family mg-codeine mg-codeine mg-codeine Practic 60 mg 60 mg 60 mg e tablet TAKE tablet TAKE tablet 1 TABLET BY 1 TABLET BY TAKE 1 MOUTH EVERY MOUTH EVERY TABLET BY 6 HOURS 6 HOURS MOUTH NEEDED NEEDED EVERY 6 HOURS NEEDED acyclovir acyclovir No acyclovir [facility] 800 mg 800 mg 800 mg Family tablet tablet tablet Practic e alprazolam alprazolam alprazolam [facility] 0.25 mg 0.25 mg 0.25 mg [...] DAILY TIMES DAILY budesonide budesonide No budesonide [facility] 1 mg/2 mL 1 mg/2 mL 1 mg/2 mL [facility] suspension suspension suspension Practic for for for [...] TO TWICE DAILY carvedilol carvedilol No carvedilol [facility] 12.5 mg 12.5 mg 12.5 mg [...] - TWICE DAILY cinacalcet cinacalcet No cinacalcet [facility] 30 mg 30 mg 30 mg Family tablet TAKE tablet TAKE tablet Practic 1 TABLET BY 1 TABLET BY TAKE 1 e MOUTH TWICE MOUTH TWICE TABLET BY A DAY A DAY MOUTH TWICE A DAY clindamycin clindamycin No clindamyci [facility] 2 % vaginal 2 % vaginal n 2 % Family cream cream vaginal Practic cream e clonidine clonidine No clonidine [facility] HCl 0.1 mg HCl 0.1 mg [...] DIRECTED DIRECTED DIRECTED ezetimibe ezetimibe No ezetimibe [facility] 10 mg 10 mg 10 mg Family tablet TAKE tablet TAKE tablet Practic 1 TABLET BY 1 TABLET BY TAKE 1 e MOUTH EVERY MOUTH EVERY TABLET BY DAY DAY MOUTH EVERY DAY fluconazole fluconazole No fluconazol [facility] 150 mg 150 mg e 150 mg Family tablet 1 tablet 1 tablet 1 Pra ctic TABLET TABLET TABLET e ORALLY NOW, ORALLY NOW, ORALLY THEN AGAIN THEN AGAIN NOW, THEN IN 72 HOURS IN 72 HOURS AGAIN IN 4 DAY(S) 4 DAY(S) 72 HOURS 4 DAY(S) furosemide furosemide No furosemide [facility] 20 mg 20 mg 20 mg Family tablet TAKE tablet TAKE tablet Practic 1 TABLET BY 1 TABLET BY TAKE 1 e MOUTH EVERY MOUTH EVERY TABLET BY DAY DAY MOUTH EVERY DAY gabapentin gabapentin No gabapentin [facility] 300 mg 300 mg 300 mg Family capsule capsule capsule Practi c TAKE 1 TAKE 1 TAKE 1 e CAPSULE BY CAPSULE BY CAPSULE BY MOUTH THREE MOUTH THREE MOUTH TIMES A DAY TIMES A DAY THREE TIMES A DAY hydralazine hydralazine No hydralazin [facility] 25 mg 25 mg e 25 mg Family tablet TAKE tablet TAKE tablet Pract[facility] 1 TABLET BY 1 TABLET BY TAKE 1 e MOUTH THREE MOUTH THREE TABLET BY TIMES A DAY TIMES A DAY MOUTH THREE TIMES A DAY hydrocodone hydrocodone No hydrocodon [facility] 5 5 e 5 Family mg-acetamin mg-acetamin mg-acetami Practic ophen 325 ophen 325 nophen 325 e mg tablet mg tablet mg tablet TAKE 1 TAKE 1 TAKE 1 TABLET BY TABLET BY TABLET BY MOUTH EVERY MOUTH EVERY MOUTH 6 HOURS 6 HOURS EVERY 6 NEEDED NEEDED HOURS NEEDED [facility] XR 5 XR 5 XR 5 Family mg-1,000 mg mg-1,000 mg mg-1,000 Practic tablet, tablet, mg tablet, e extended extended extended release release release TAKE 1 TAKE 1 TAKE 1 TABLET BY TABLET BY TABLET BY MOUTH EVERY MOUTH EVERY MOUTH DAY IN THE DAY IN THE EVERY DAY MORNING MORNING IN THE MORNING lisinopril lisinopril No lisinopril [facility] 20 mg 20 mg 20 mg [...] ointment ointment topical Prac tic ointment e Cinacalcet Cinacalcet Yes [facility] HCl - 30 MG HCl - 30 MG P hysici Oral Tablet Oral Tablet a ns nifedipine nifedipine No nifedipine [facility] 30 [...] FOR 30 DAYS omeprazole omeprazole No omeprazole [facility] 20 mg 20 mg 20 mg [...] DIRECTED INCREASE DIRECTED valsartan valsartan No valsartan [facility] 320 mg 320 mg 320 mg Family tablet TAKE tablet TAKE tablet Pract[facility] 1 TABLET BY 1 TABLET BY TAKE 1 e MOUTH EVERY MOUTH EVERY TABLET BY DAY DAY MOUTH EVERY DAY Vitamin D3 Vitamin D3 No Vitamin D3 [facility] Family Practic e Accu-Chek Accu-Chek No Accu-Chek [facility] Fior Meter Fior Meter Fior Family Meter Practic e Accu-Chek Accu-Chek No Accu-Chek [facility] Fior Plus Fior Plus Fior Plus Family test strips test strips test P ractic TEST 3 TEST 3 strips e TIMES A DAY TIMES A DAY TEST 3 DIRECTED DIRECTED TIMES A DAY DIRECTED Lisinopril Lisinopril Yes [facility] 20 MG Oral 20 MG Oral Phy sici Tablet Tablet ans Accu-Chek Accu-Chek No Accu-Chek [facility] Fastclix Fastclix Fastclix Fam gail Lancet Drum Lancet Drum Lancet Practic USE USE Drum USE e DIRECTED 3 DIRECTED 3 TIMES DAILY TIMES DAILY DIRECTED 3 TIMES DAILY Accu-Chek Accu-Chek No Accu-Chek [facility] FastClix FastClix FastClix Fam gail Lancing Lancing Lancing Practi c Device Device Device e acetaminoph acetaminoph No acetaminop [facility] en 300 en 300 hen 300 Family mg-codeine mg-codeine mg-codeine [facility] 60 mg 60 mg 60 mg e tablet TAKE tablet TAKE tablet 1 TABLET BY 1 TABLET BY TAKE 1 MOUTH EVERY MOUTH EVERY TABLET BY 6 HOURS 6 HOURS MOUTH NEEDED NEEDED EVERY 6 HOURS NEEDED acyclovir acyclovir No acyclovir [facility] 800 mg 800 mg 800 mg Family tablet tablet tablet Practic e alprazolam alprazolam No alprazolam [facility] 0.25 mg 0.25 mg 0.25 mg [...] DAILY TIMES DAILY budesonide budesonide No budesonide [facility] 1 mg/2 mL 1 mg/2 mL [...] TO TWICE DAILY carvedilol carvedilol No carvedilol [facility] 12.5 mg 12.5 mg 12.5 mg [...] - TWICE DAILY cinacalcet cinacalcet No cinacalcet [facility] 30 mg 30 mg 30 mg Family tablet TAKE tablet TAKE tablet Pract[facility] 1 TABLET BY 1 TABLET BY TAKE 1 e MOUTH TWICE MOUTH TWICE TABLET BY A DAY A DAY MOUTH TWICE A DAY clindamycin clindamycin No clindamyci [facility] 2 % vaginal 2 % vaginal n 2 % Family cream cream vaginal Practic cream e clonidine clonidine No clonidine [facility] HCl 0.1 mg HCl 0.1 mg [...] DIRECTED DIRECTED DIRECTED ezetimibe ezetimibe No ezetimibe [facility] 10 mg 10 mg 10 mg Family tablet TAKE tablet TAKE tablet Pract[facility] 1 TABLET BY 1 TABLET BY TAKE 1 e MOUTH EVERY MOUTH EVERY TABLET BY DAY DAY MOUTH EVERY DAY fluconazole fluconazole No fluconazol [facility] 150 mg 150 mg e 150 mg Family tablet 1 tablet 1 tablet 1 Pra ctic TABLET TABLET TABLET e ORALLY NOW, ORALLY NOW, ORALLY THEN AGAIN THEN AGAIN NOW, THEN IN 72 HOURS IN 72 HOURS AGAIN IN 4 DAY(S) 4 DAY(S) 72 HOURS 4 DAY(S) furosemide furosemide No furosemide [facility] 20 mg 20 mg 20 mg Family tablet TAKE tablet TAKE tablet Practic 1 TABLET BY 1 TABLET BY TAKE 1 e MOUTH EVERY MOUTH EVERY TABLET BY DAY DAY MOUTH EVERY DAY gabapentin gabapentin No gabapentin [facility] 300 mg 300 mg 300 mg Family capsule capsule capsule Practi c TAKE 1 TAKE 1 TAKE 1 e CAPSULE BY CAPSULE BY CAPSULE BY MOUTH THREE MOUTH THREE MOUTH TIMES A DAY TIMES A DAY THREE TIMES A DAY hydralazine hydralazine No hydralazin [facility] 25 mg 25 mg e 25 mg Family tablet TAKE tablet TAKE tablet [facility] 1 TABLET BY 1 TABLET BY TAKE 1 e MOUTH THREE MOUTH THREE TABLET BY TIMES A DAY TIMES A DAY MOUTH THREE TIMES A DAY Pravastatin Pravastatin Yes U T Sodium 20 Sodium 20 Physi ci MG Oral MG Oral ans Tablet Tablet hydrocodone hydrocodone No hydrocodon [facility] 5 5 e 5 Family mg-acetamin mg-acetamin mg-acetami Practic ophen 325 ophen 325 nophen 325 e mg tablet mg tablet mg tablet TAKE 1 TAKE 1 TAKE 1 TABLET BY TABLET BY TABLET BY MOUTH EVERY MOUTH EVERY MOUTH 6 HOURS 6 HOURS EVERY 6 NEEDED NEEDED HOURS [facility] XR 5 XR 5 XR 5 Family [...] for 90 days. lisinopril lisinopril No lisinopril [facility] 20 mg 20 mg 20 mg Family tablet TAKE tablet TAKE tablet Practic 2 TABLETS 2 TABLETS TAKE 2 e BY MOUTH BY MOUTH TABLETS BY EVERY DAY EVERY DAY MOUTH EVERY DAY Livalo 4 mg Livalo 4 mg No Livalo 4 [facility] tablet TAKE tablet TAKE mg tablet [...] tic ointment e nifedipine nifedipine No nifedipine [facility] ER 30 mg ER 30 mg [...] 50 TDD 50 nystatin-tr nystatin-tr No nystatin-t [facility] iainolone iamcinolone riainolo Family 100,000 100,000 ne 100,000 Pra [...] FOR 30 DAYS omeprazole omeprazole No omeprazole [facility] 20 mg 20 mg 20 mg [...] directed: TDD 60 valsartan valsartan No valsartan [facility] 320 mg 320 mg 320 mg Family tablet TAKE tablet TAKE tablet Practic 1 TABLET BY 1 TABLET BY TAKE 1 e MOUTH EVERY MOUTH EVERY TABLET BY DAY DAY MOUTH EVERY DAY Vitamin D3 Vitamin D3 No Vitamin D3 [facility] Family Practic e Accu-Chek Accu-Chek No Accu-Chek [facility] Fior Meter Fior Meter [facility] Practic e Accu-Chek Accu-Chek No Accu-Chek [facility] Fior Plus Fior Plus Fior Plus Family test strips test strips test P ractic TEST 3 TEST 3 strips e TIMES A DAY TIMES A DAY TEST 3 DIRECTED DIRECTED TIMES A DAY DIRECTED Accu-Chek Accu-Chek No Accu-Chek [facility] Fastclix Fastclix Fastclix Fam gail Lancet Drum Lancet Drum Lancet Practic USE USE Drum USE e DIRECTED 3 DIRECTED 3 TIMES DAILY TIMES DAILY DIRECTED 3 TIMES DAILY Accu-Chek Accu-Chek No Accu-Chek [facility] FastClix FastClix FastClix Fam gail Lancing Lancing Lancing Practi c Device Device Device e acetaminoph acetaminoph No acetaminop [facility] en 300 en 300 hen 300 Family mg-codeine mg-codeine mg-codeine Practic 60 mg 60 mg 60 mg e tablet TAKE tablet TAKE tablet 1 TABLET BY 1 TABLET BY TAKE 1 MOUTH EVERY MOUTH EVERY TABLET BY 6 HOURS 6 HOURS MOUTH NEEDED NEEDED EVERY 6 HOURS NEEDED acyclovir acyclovir No acyclovir [facility] 800 mg 800 mg 800 mg Family tablet tablet tablet Practic e Aspirin 81 Aspirin 81 Yes [facility] MG TABS MG TABS Physici ans alprazolam alprazolam No alprazolam [facility] 0.25 mg 0.25 mg 0.25 mg [...] DAILY TIMES DAILY budesonide budesonide No budesonide [facility] 1 mg/2 mL 1 mg/2 mL 1 [...] TO TWICE DAILY carvedilol carvedilol No carvedilol [facility] 12.5 mg 12.5 mg 12.5 mg [...] - TWICE DAILY cinacalcet cinacalcet No cinacalcet [facility] 30 mg 30 mg 30 mg Family tablet TAKE tablet TAKE tablet Practic 1 TABLET BY 1 TABLET BY TAKE 1 e MOUTH TWICE MOUTH TWICE TABLET BY A DAY A DAY MOUTH TWICE A DAY clonidine clonidine No clonidine [facility] HCl 0.1 mg HCl 0.1 mg [...] DIRECTED DIRECTED DIRECTED ezetimibe ezetimibe No ezetimibe [facility] 10 mg 10 mg 10 mg Family tablet TAKE tablet TAKE tablet Pract[facility] 1 TABLET BY 1 TABLET BY TAKE 1 e MOUTH EVERY MOUTH EVERY TABLET BY DAY DAY MOUTH EVERY DAY fluconazole fluconazole No fluconazol [facility] 150 mg 150 mg e 150 mg Family tablet 1 tablet 1 tablet 1 Pra ctic TABLET TABLET TABLET e ORALLY NOW, ORALLY NOW, ORALLY THEN AGAIN THEN AGAIN NOW, THEN IN 72 HOURS IN 72 HOURS AGAIN IN 4 DAY(S) 4 DAY(S) 72 HOURS 4 DAY(S) furosemide furosemide No furosemide [facility] 20 mg 20 mg 20 mg Family tablet TAKE tablet TAKE tablet Practic 1 TABLET BY 1 TABLET BY TAKE 1 e MOUTH EVERY MOUTH EVERY TABLET BY DAY DAY MOUTH EVERY DAY gabapentin gabapentin No gabapentin [facility] 300 mg 300 mg 300 mg Family capsule capsule capsule Practi c TAKE 1 TAKE 1 TAKE 1 e CAPSULE BY CAPSULE BY CAPSULE BY MOUTH THREE MOUTH THREE MOUTH TIMES A DAY TIMES A DAY THREE TIMES A DAY hydralazine hydralazine No hydralazin [facility] 25 mg 25 mg e 25 [...] HOURS EVERY 6 NEEDED NEEDED HOURS NEEDED [facility] No [facility] XR 5 XR 5 XR 5 Family mg-1,000 mg mg-1,000 mg mg-1,000 Practic tablet, tablet, mg tablet, e extended extended extended release release release TAKE 1 TAKE 1 TAKE 1 TABLET BY TABLET BY TABLET BY MOUTH EVERY MOUTH EVERY MOUTH DAY IN THE DAY IN THE EVERY DAY MORNING MORNING IN THE MORNING lisinopril lisinopril No lisinopril [facility] 20 mg 20 mg 20 mg Family tablet TAKE tablet TAKE tablet Practic 2 TABLETS 2 TABLETS TAKE 2 e BY MOUTH BY MOUTH TABLETS BY EVERY DAY EVERY DAY MOUTH EVERY DAY Livalo 4 mg Livalo 4 mg No Livalo 4 [facility] tablet TAKE tablet TAKE mg tablet Family 1 TABLET BY 1 TABLET BY TAKE 1 Practic MOUTH MOUTH TABLET BY e EVERYDAY AT EVERYDAY AT MOUTH BEDTIME BEDTIME EVERYDAY AT BEDTIME Miralax Miralax No Miralax [facility] Pract[facility] e Brilinta 90 Brilinta 90 Yes U T MG Oral MG Oral Physici Tablet Tablet ans mupirocin 2 mupirocin 2 No mupirocin [facility] [...] FOR 30 DAYS omeprazole omeprazole No omeprazole [facility] 20 mg 20 mg 20 mg [...] DIRECTED INCREASE DIRECTED valsartan valsartan No valsartan [facility] 320 mg 320 mg 320 mg Family tablet TAKE tablet TAKE tablet Practic 1 TABLET BY 1 TABLET BY TAKE 1 e MOUTH EVERY MOUTH EVERY TABLET BY DAY DAY MOUTH EVERY DAY Vitamin D3 Vitamin D3 No Vitamin D3 [facility] Family Practic e Accu-Chek Accu-Chek No Accu-Chek [facility] Fior Meter Fior Meter Fior Family Meter Practic e Accu-Chek Accu-Chek No Accu-Chek [facility] Fior Plus Fior Plus Fior Plus Family test strips test strips test P ractic TEST 3 TEST 3 strips e TIMES A DAY TIMES A DAY TEST 3 DIRECTED DIRECTED TIMES A DAY DIRECTED Accu-Chek Accu-Chek No Accu-Chek [facility] Fastclix Fastclix Fastclix Fam gail Lancet Drum Lancet Drum Lancet Practic USE USE Drum USE e DIRECTED 3 DIRECTED 3 TIMES DAILY TIMES DAILY DIRECTED 3 TIMES DAILY Accu-Chek Accu-Chek No Accu-Chek [facility] FastClix FastClix FastClix Fam gail Lancing Lancing Lancing Practi c Device Device Device e acetaminoph acetaminoph acetaminop [facility] en 300 en 300 hen 300 Family mg-codeine mg-codeine mg-codeine Practic 60 mg 60 mg 60 mg e tablet TAKE tablet TAKE tablet 1 TABLET BY 1 TABLET BY TAKE 1 MOUTH EVERY MOUTH EVERY TABLET BY 6 HOURS 6 HOURS MOUTH NEEDED NEEDED EVERY 6 HOURS NEEDED acyclovir acyclovir No acyclovir [facility] 800 mg 800 mg 800 mg Family tablet tablet tablet Practic e alprazolam alprazolam No alprazolam [facility] 0.25 mg 0.25 mg 0.25 mg [...] DAILY TIMES DAILY budesonide budesonide No budesonide [facility] 1 mg/2 mL 1 mg/2 mL 1 [...] TO TWICE DAILY carvedilol carvedilol No carvedilol [facility] 12.5 mg 12.5 mg 12.5 mg Family tablet TAKE tablet TAKE tablet Practic 1 TABLET BY 1 TABLET BY TAKE 1 e MOUTH TWICE MOUTH TWICE TABLET BY A DAY A DAY MOUTH TWICE A DAY Gabapentin Gabapentin Yes [facility] 300 MG Oral 300 MG Oral P hysici Capsule Capsule ans cefixime cefixime No cefixime [place] [facility] 400 mg 400 mg 400 mg Family capsule capsule capsule Practi c EMPTY 1 EMPTY 1 EMPTY 1 e CAPSULE CAPSULE CAPSULE INTO INTO INTO IRRIGATION IRRIGATION IRRIGATION SYSTEM, ADD SYSTEM, ADD SYSTEM, DISTILLED DISTILLED ADD WATER, WATER, DISTILLED IRRIGATE - IRRIGATE - WATER, TWICE DAILY TWICE DAILY IRRIGATE - TWICE DAILY cinacalcet cinacalcet No cinacalcet [facility] 30 mg 30 mg 30 mg [...] DIRECTED DIRECTED DIRECTED ezetimibe ezetimibe No ezetimibe [facility] 10 mg 10 mg 10 mg Family tablet TAKE tablet TAKE tablet Practic 1 TABLET BY 1 TABLET BY TAKE 1 e MOUTH EVERY MOUTH EVERY TABLET BY DAY DAY MOUTH EVERY DAY fluconazole fluconazole No fluconazol [facility] 150 mg 150 mg e 150 mg Family tablet 1 tablet 1 tablet 1 Pra ctic TABLET TABLET TABLET e ORALLY NOW, ORALLY NOW, ORALLY THEN AGAIN THEN AGAIN NOW, THEN IN 72 HOURS IN 72 HOURS AGAIN IN 4 DAY(S) 4 DAY(S) 72 HOURS 4 DAY(S) furosemide furosemide No furosemide [facility] 20 mg 20 mg 20 mg Family tablet TAKE tablet TAKE tablet Practic 1 TABLET BY 1 TABLET BY TAKE 1 e MOUTH EVERY MOUTH EVERY TABLET BY DAY DAY MOUTH EVERY DAY hydralazine hydralazine No hydralazin [facility] 25 mg 25 mg e 25 mg Family tablet TAKE tablet TAKE tablet Practic 1 TABLET BY 1 TABLET BY TAKE 1 e MOUTH THREE MOUTH THREE TABLET BY TIMES A DAY TIMES A DAY MOUTH THREE TIMES A DAY hydrocodone hydrocodone No [facility] 5 5 e 5 Family mg-acetamin mg-acetamin mg-acetami Practic ophen 325 ophen 325 nophen 325 e mg tablet mg tablet mg tablet TAKE 1 TAKE 1 TAKE 1 TABLET BY TABLET BY TABLET BY MOUTH EVERY MOUTH EVERY MOUTH 6 HOURS 6 HOURS EVERY 6 NEEDED NEEDED HOURS NEEDED hydrocodone hydrocodone No [facility] 7.5 7.5 e 7.5 Family mg-acetamin mg-acetamin mg-acetami Practic ophen 325 ophen 325 nophen 325 e mg tablet mg tablet mg tablet TAKE 1 TAKE 1 TAKE 1 TABLET BY TABLET BY TABLET BY MOUTH EVERY MOUTH EVERY MOUTH 8 HOURS 8 HOURS EVERY 8 NEEDED NEEDED HOURS NEEDED [facility] No 1 Q1D [facility] XR 5 XR 5 XR 5 Family mg-1,000 mg mg-1,000 mg mg-1,000 Practic tablet, tablet, mg tablet, e extended extended extended release release release Take 1 Take 1 Take 1 tablet tablet tablet every day every day every day by oral by oral by oral route in route in route in the morning the morning the for for 90 morning days. days. for 90 days. lisinopril lisinopril No lisinopril [facility] 20 mg 20 mg 20 mg [...] 50 TDD 50 nystatin-tr nystatin-tr No nystatin-t [facility] iainolone iainolone riainolo Family 100,000 100,000 [...] FOR 30 DAYS omeprazole omeprazole No omeprazole [facility] 20 mg 20 mg 20 mg Family capsule,del capsule,del capsule,de Practic ayed ayed layed e release 1 release 1 release 1 CAPSULE BY CAPSULE BY CAPSULE BY MOUTH MOUTH MOUTH DAILY, 30 DAILY, 30 DAILY, 30 MINUTES MINUTES MINUTES BEFORE BEFORE BEFORE BREAKFAST BREAKFAST BREAKFAST Furosemide Furosemide Yes [facility] 20 MG Oral 20 MG Oral Phy sici Tablet Tablet ans pregabalin pregabalin No 1capsul TID pregabalin [facility] 50 mg 50 mg e(s) 50 mg Family capsule capsule capsule Practi c Take 1 Take 1 Take 1 e capsule 3 capsule 3 capsule 3 times a day times a day times a by oral by oral day by route. route. oral route. pregabalin pregabalin No pregabalin [facility] 75 mg 75 mg 75 mg [...] directed: TDD 60 valsartan valsartan No valsartan [facility] 320 mg 320 mg 320 mg Family tablet TAKE tablet TAKE tablet Practic 1 TABLET BY 1 TABLET BY TAKE 1 e MOUTH EVERY MOUTH EVERY TABLET BY DAY DAY MOUTH EVERY DAY Vitamin D3 Vitamin D3 No Vitamin D3 [facility] e Vitamin D3 Vitamin D3 Yes [facility] TABS TABS Physici ans MiraLax MiraLax Yes [facility] POWD POWD Physici ans Immunizations Ordered Filled Immunization Date Status Comments [...] mL dose (Pfizer-BioNTech) - (Pfizer-BioNTech) - ML PFIZER COVID-19 2020-07-15 Completed [facility] PFIZER COVID-19 2020-07-15 Completed [facility]:00 [facility] PFIZER COVID-19 2020-07-15 Completed [facility] 00:00:00 Hospital PFIZER COVID-19 2020-07-15 Completed [facility] 00:00:00 [facility] COVID-19, mRNA, COVID-19, mRNA, 2020-07-15 Completed [facility] LNP-S, PF, 30 LNP-S, PF, 30 00:00:00 Sports M ed[facility] mcg/0.3 mL dose mcg/0.3 mL dose (Pfizer-BioNTech) (Pfizer-BioNTech) COVID-19, mRNA, COVID-19, mRNA, 2020-06-23 [facility]pleted [facility] LNP-S, PF, 30 LNP-S, PF, 30 00:00:00 Practice mcg/0.3 mL dose mcg/0.3 mL dose (Pfizer-BioNTech) - (Pfizer-BioNTech) - ML ML PFIZER COVID-19 2020-06-23 Completed [facility] 00:00:00 [facility] PFIZER COVID-19 2020-06-23 Completed [facility]ACC[facility] 00:00:00 [facility] PFIZER COVID-19 2020-06-23 Completed [facility]ACC[facility] 00:00:00 [facility] PFIZER COVID-19 2020-06-23 Completed [facility] 00:00:00 [facility] COVID-19, mRNA, COVID-19, mRNA, 2020-06-23 Completed [...] Practice quadrivalent quadrivalent influenza, influenza, 2020-03-27 Completed [facility] Family injectable, injectable, 00:00:00 Practice quadrivalent [...] 2021-01-20 65 [in_i] [facility] 00:00:00 [facility] Body Weight 2020-10-14 204 [lb_av] [facility] 00:00:00 Practice BP Diastolic 2020-10-14 81 mm[Hg] [facility] 00:00:00 Practice Height 2020-10-14 65 [in_i] [facility] 00:00:00 Practice BMI (Body Mass 2020-10-14 33.9 kg/m2 [facility] Index) 00:00:00 Practice BP Systolic 2020-10-14 125 mm[Hg] [facility] 00:00:00 Practice BP Diastolic 2020-07-14 [...] 00:00:00 Practice Body height 2022-12-13 165.1 cm [facility] 20:07:00 [facility] Body weight 2022-12-13 99.791 kg [facility] 20:07:00 [facility] BMI 2022-12-13 36.61 kg/m2 [facility] 20:07:00 [facility] Body height 2020-01-26 63 [in_us] [facility] 14:56:00 Weight 2020-01-26 205.25 [lb_av] [facility] 14:56:00 Body mass index 2020-01-26 36.36 kg/m2 [facility] (BMI) [Ratio] 14:56:00 Body temperature 2020-01-26 98.3 [degF] Method: [facility] 14:56:00 Temporal Heart Rate 2020-01-26 70 /min Location: R [facility] 14:56:00 Brachial Artery; Quality: Normal Respiratory rate 2020-01-26 16 /min Quality: Normal [facility] 14:56:00 Systolic blood 2020-01-26 144 mm[Hg] Location: [facility]; [place] [facility] pressure 14:56:00 Position: Sitting Diastolic blood 2020-01-26 66 mm[Hg] Location[place] [facility] [place] [facility] pressure 14:56:00 Position: Sitting Temperature Oral 2016-02-14 97.5 F [facility] rmann (F) 21:00:00 Heart Rate 2016-02-14 Elvira Ramos n 21:00:00 Respitory Rate 2016-02-14 [facility] Michael robert 21:00:00 Systolic (mm Hg) 2016-[facility]-14 [facility] robert 14:00:00 Temperature Oral 2012-10-06 96.3 F [facility] Manolo rmann (F) 08:33:00 Temperature Oral 2012-10-06 [facility]9 [facility] (F[facility] 04:00:00 Temperature Oral 2012-10-05 97.6 [...] LIPID PANEL 2022-09-26 00:00:00 Provider, Not In [facility] XR, shoulder, 2 or more 2022-09-18 00:00:00 [facility] XR, knee, 3 view 2022-09-18 00:00:00 Arlin Dam[facility] EXTERNAL PROVIDER 2022-08-28 05:01:00 Doctor Unassigned, No [facility] Name [facility] ASSIGNMENT OF BENEFITS 2022-08-04 15:37:10 Doctor Unassigned, No [facility] Name Medical Branch PHYSICIAN ORDERS 2022-07-25 06:01:00 Doctor Unassigned, No Unive [facility] Medical Branch XR, hip + pelvis, 2022-03-09 00:00:00 Arlin perezdic unilateral, 4 or more Sports Med icine view Back Surgery 2016-01-17 00:00:00 [facility] Chas lester Practice Knee Replacement 2014-08-16 00:00:00 [facility] Durga reynolds Practice Operation on Neck 2012-09-16 00:00:00 [facility] Gustavo lanza [facility] Repair of Perforated 2012-03-18 00:00:00 [facility] Colon Practice Colonoscopy 2010-06-18 00:00:00 [facility] Chas lester [facility] Operation <sup>1</sup> [facility] Cervical discectomy [facility] Knee [facility] replacement<sup>1</sup> Operation<sup>2</sup> [facility] Plan of Care Planned Activity Planned Date Details Comments Source Future Scheduled Test 2023-01-12 SHINGLES VACCINES (1 [facility] 14:53:49 of 2) [code = SHINGLES VACCINES (1 of 2)] Future Scheduled Test 2023-01-12 COVID-19 VACCINE (4 - [facility] 14:53:49 Pfizer series) [code = COVID-19 VACCINE (4 - Pfizer series)] Future Scheduled Test 2023-01-12 65+ PNEUMOCOCCAL [facility] 14:53:49 VACCINE (2 - PCV) [code = 65+ PNEUMOCOCCAL VACCINE (2 - PCV)] Future Scheduled Test 2023-01-12 INFLUENZA VACCINE [facility] 14:53:49 [code = INFLUENZA VACCINE] Future Scheduled Test 2022-12-16 SHINGLES VACCINES (1 [facility] 12:11:42 of 2) [code = SHINGLES VACCINES (1 of 2)] Future Scheduled Test 2022-12-16 COVID-19 VACCINE (4 - [facility] 12:11:42 Pfizer series) [code = COVID-19 VACCINE (4 - Pfizer series)] Future Scheduled Test 2022-12-16 65+ PNEUMOCOCCAL [facility] 12:11:42 VACCINE (2 - PCV) [code = 65+ PNEUMOCOCCAL VACCINE (2 - PCV)] Future Scheduled Test 2022-12-16 INFLUENZA VACCINE [facility] 12:11:42 [code = INFLUENZA VACCINE] Diagnostic Test 2022-11-24 glucose, fingerstick, [facility] Pending 00:00:00 blood [code = Practice glucose, fingerstick, blood] Future Scheduled Test 2022-09-07 SHINGLES VACCINES (1 [facility] 11:04:32 of 2) [code = SHINGLES VACCINES (1 of 2)] Future Scheduled Test 2022-09-07 COVID-19 VACCINE (3 [facility] 11:04:32 Booster for Pfizer series) [code = COVID-19 VACCINE (3 - Booster for Pfizer series)] Future Scheduled Test 2022-09-07 INFLUENZA VACCINE [facility] 11:04:32 [code = INFLUENZA VACCINE] Future Scheduled Test 2022-09-07 65+ PNEUMOCOCCAL [facility] 11:04:32 VACCINE (2 - PCV) [code = 65+ PNEUMOCOCCAL VACCINE (2 - PCV)] Future Scheduled Test 2022-07-13 SHINGLES VACCINES (1 [facility] 16:05:49 of 2) [code = SHINGLES VACCINES (1 of 2)] Future Scheduled Test 2022-07-13 COVID-19 VACCINE (3 [facility] 16:05:49 Booster for Pfizer series) [code = COVID-19 VACCINE (3 - Booster for Pfizer series)] Future Scheduled Test 2022-07-13 INFLUENZA VACCINE [facility] 16:05:49 [code = INFLUENZA VACCINE] Future Scheduled Test 2022-07-13 65+ PNEUMOCOCCAL [facility] 16:05:49 VACCINE (2 - PCV) [code = 65+ PNEUMOCOCCAL VACCINE (2 - PCV)] Future Appointment 2023-05-26 Carson Sheldon, [address] [facility] 00:00:[address] Practice [address], [place] [address] Future Appointment 2023-05-25 Carson Sheldon, Santi [facility] 10:45:[address] Practice [address], [place] [address] Instructions Arlin Orthoped ic Sports Medicine Encounters Start End Encounter Admission Attending Care Care Encounter Source Date/Time Date/Time Type Type Clinicians Facility Department ID 2022-11-21 Outpatient [facility] [id number] [place] 11:59:[address] [place] [address] 2020-10-23 Outpatient ISMA, [facility] [id number] [place] 03:35:09 [facility] 2022-12-13 2022-12-13 Procedure Frank, 1.2.840.1 [id number] Methodi 15:15:00 16:47:44 visit Alex [address]4541.1.[address] [facility] 3.430.2.7 Hospit a .3.727520 l .8 2022-12-13 2022-12-13 Procedure Frank, 1.2.840.1 [id number] 2100 [id number] Methodi 15:15:00 16:47:44 visit Alex 49510.1.[address] [facility] 3.430.2.7 Hospit a .3.854509 l .8 2022-11-24 2022-11-24 Outpatient Daniel_T VFP VFP [id number] [address] [place] [address] 00:00:00 00:00:00 [id number] Family Practic e 2022-11-24 2022-11-24 Outpatient Pito_T VFP VFP [id number] [address] [place] [address] 00:00:00 00:00:00 [id number] Family Practic e 2022-11-24 2022-11-24 Carson VFP [place] - [id number] V illage 00:00:00 00:00:00 Samantha [facility] Family SheldonCharity - Matteo yousif MD: [id number] [place] - e Shadow VM_HOU_[place] [address], [place] [address] , Ph. 2022-10-25 2022-10-25 Outpatient Daniel_T VFP VFP [id number] [address] [place] [address] 00:00:00 00:00:00 [id number] Family Practic e 2022-10-25 2022-10-25 Outpatient Daniel_T VFP VFP [id number] [address] [place] [address] 00:00:00 00:00:00 [id number] Family Practic e 2022-09-26 2022-09-26 Telephone Fidencio, 1.2.840.1 [id number] Methodi 00:00:00 00:00:[address] 3.430.2.7 Hospit a .3.934946 l .8 2022-09-26 2022-09-26 Orders Provider, 1.2.840.1 [id number] 2100 [id number] Methodi 00:00:00 00:00:00 Only [place] 11664.1.[address] System 3.430.2.7 Hospit a .3.704569 l .8 2022-09-26 2022-09-26 Orders Provider, 1.2.840.1 [id number] 2100 [id number] Methodi 00:00:00 00:00:00 Only [place] 49292.1.[address] System 3.430.2.7 Hospit a .3.214469 l .8 2022-09-26 2022-09-26 Telephone Fidencio, 1.2.840.1 [id number] Methodi 00:00:00 00:00:[address] 3.430.2.7 Hospit a .3.207957 l .8 2022-09-20 2022-09-20 Outpatient FOG_Elkousy AOSM AOSM 623 2176-20 Arlin 00:00:00 00:00:00 _Gato 386537 Orth ope dic Sports Medicin e 2022-09-18 2022-09-18 Outpatient FOG_Elkousy AOSM AOSM 623 2176-20 Arlin 00:00:00 00:00:00 _Gato 327300 Orth ope dic Sports Medicin e 2022-09-18 2022-09-18 Vaibhav A AOSM [place] - Ortho [id number] 403 Arlin 00:00:00 00:00:00 Laura Tello MD: 7401 FOG_Ofc dic [facility] Sp[place], [place] [address] , Ph. [phone] 2022-09-06 2022-09-06 Telephone Fidencio, 1.2.840.1 [id number] 21 [id number] Methodi 00:00:00 00:00:[address] 3.430.2.7 Hospit a .3.746844 l .8 2022-09-06 2022-09-06 Telephone Fidencio, 1.2.840.1 [id number] 21 [id number] Methodi 00:00:00 00:00:[address] 3.430.2.7 Hospit a .3.653025 l .8 2022-08-28 2022-08-28 Orders Doctor NORMA 1.2.840.114 [id number] Univers 00:00:00 00:00:00 Only Unassigned, GLEN 350.1.13.10 ity of [place] [facility] 4.2.7.2.686 Kwame as [id number] [place] [address] Branch 2022-08-24 2022-08-24 Outpatient [facility] 623 2176-20 Arlin 00:00:00 00:00:00 _Gato 690089 Orth ope dic Sports Medicin e 2022-08-22 2022-08-22 Outpatient Daniel_T VFP VFP [id number] 420 [facility] 00:00:00 00:00:00 [id number] Family Practic e 2022-08-22 2022-08-22 Outpatient Daniel_T VFP VFP [id number] [facility] 00:00:00 00:00:00 [id number] Family Practic e 2022-08-22 2022-08-22 Outpatient VFP VFP [id number] [facility] 00:00:00 00:00:00 [id number] Family Practic e 2022-08-22 2022-08-22 Carson VFP [place] - [id number] V illage 00:00:00 00:00:00 Samantha Sheldon, Medical - Pracedin yousif MD: 13751 [place] - e Shadow VM_HOU_[place] [address], [place] [address] , Ph. 2022-08-21 2022-08-21 [facility] 1.2.840.114 10 [id number] Univers 00:00:00 00:00:00 Chucho [facility] 350.1.13.10 it y of [place] 4.2.7.2.686 Kwame as KRISH?BLEA [phone] Ar dic[address] OFFICE [facility] 2022-08-04 2022-08-04 Office [facility] 1.2.579.520 [id number] 62389 Univers 10:00:00 10:21:24 Visit Chucho [facility] 350.1.13.10 it y of [place] 4.2.7.2.686 Kwame as KRISH?BLEA [id number] Ar dic[address] OFFICE [facility] 2022-08-04 2022-08-04 Outpatient R [facility] [id number] Univers 10:00:00 10:21:24 CHUCHO lo [facility] 2022-08-04 2022-08-04 Orders Doctor NORMA 1.2.840.114 [id number] Univers 00:00:00 00:00:00 Only Unassigned, GLEN 350.1.13.10 ity of [place] [facility] 4.2.7.2.686 Kwame as [id number] [address] 2022-07-29 2022-07-29 Outpatient FOG_Elkousy AOSM AOSM 623 2176-20 Arlin 00:00:00 00:00:00 _Gato 944322 Orth ope dic Sports Medicin e 2022-07-25 2022-07-25 Orders Doctor GREEN 1.2.840.114 [id number] Univers 00:00:00 00:00:00 Only Unassigned, GLEN 350.1.13.10 ity of [place] [facility] 4.2.7.2.686 Kwame as [phone] [address] 2022-07-20 2022-07-20 Refill [place], 1.2.840.1 [id number] 0437 Methodi 00:00:00 00:00:[address] 3.430.2.7 Hospit a .3.815670 l .8 2022-07-20 2022-07-20 Refill [place], 1.2.840.1 [id number] 854710 7588 Methodi 00:00:00 00:00:[address] 3.430.2.7 Hospit a .3.865946 l .8 2022-07-13 2022-07-13 Outpatient [facility] [id number] Univers 00:00:00 00:00:00 CHUCHO [facility] 2022-07-05 2022-07-05 Refill [place], 1.2.840.1 [id number] [id number] 1768 Methodi 00:00:00 00:00:[address] 3.430.2.7 Hospit a .3.140262 l .8 2022-07-05 2022-07-05 Refill [place], 1.2.840.1 [id number] 673804 0065 Methodi 00:00:00 00:00:[address] 3.430.2.7 Hospit a .3.761688 l .8 2022-06-11 2022-06-11 Refill [place], 1.2.840.1 [id number] 784303 3039 Methodi 00:00:00 00:00:[address] 3.430.2.7 Hospit a .3.856093 l .8 2022-06-11 2022-06-11 Refill [place], 1.2.840.1 [id number] 159399 6402 Methodi 00:00:00 00:00:[address] 3.430.2.7 Hospit a .3.450520 l .8 2022-05-23 2022-05-23 Outpatient Pito_T VFP VFP [id number] [address] [place] [address] 00:00:00 00:00:00 [id number] Family Practic e 2022-05-23 2022-05-23 Outpatient Pito_T VFP VFP [id number] [address] [place] [address] 00:00:00 00:00:00 [id number] Family Practic e 2022-05-23 2022-05-23 Carson VFP [place] - [id number] V illage 00:00:00 00:00:00 Dilon [facility] Family Sheldon, Medical - Pracedin yousif MD: 23855 [place] - e [facility] [place] [facility], [address], [place] [address] , Ph. 2022-05-09 2022-05-09 Orders [place], 1.2.840.1 [id number] 7323 Methodi 00:00:00 00:00:00 Only Lora Yee [address]93.1.[address] 3.430.2.7 Hospit a .3.188175 l .8 2022-05-09 2022-05-09 Orders [place], 1.2.840.1 [id number] 5627 Methodi 00:00:00 00:00:00 Only Lora Yee 94469.1.[address] 3.430.2.7 Hospit a .3.050165 l .8 2022-05-07 2022-05-07 Refill [place], 1.2.840.1 [id number] 059333 1823 Methodi 00:00:00 00:00:[address] 3.430.2.7 Hospit a .3.005423 l .8 2022-05-07 2022-05-07 Refill [place], 1.2.840.1 [id number] 843837 8874 Methodi 00:00:00 00:00:[address] 3.430.2.7 Hospit a .3.244957 l .8 2022-04-17 2022-04-17 Outpatient Daniel_T VFP VFP [id number] [address] [place] [address] 00:00:00 00:00:00 [id number] Family Payan e 2022-04-17 2022-04-17 Carson VFP [place] - [id number] V illage 00:00:00 00:00:00 [facility] Family Sheldon, Charity - Pracedin yousif MD: 51952 [place] - e Shadow VM_HOU_[place] [address], [place] [address] , Ph. 2022-04-14 2022-04-14 Outpatient Daniel_T VFP VFP [id number] [address] [place] [address] 00:00:00 00:00:00 [id number] Family Schuyler e 2022-04-10 2022-04-10 Orders [place], 1.2.840.1 [id number] 7413 Methodi 00:00:00 00:00:00 Only Lora BrianNick 28921.1.[address] 3.430.2.7 Hospit a .3.031082 l .8 2022-04-10 2022-04-10 Orders [place], 1.2.840.1 [id number] 4869 Methodi 00:00:00 00:00:00 Only Lora TorresNick [address]2920.1.[address] 3.430.2.7 Hospit a .3.517692 l .8 2022-04-09 2022-04-09 Refill [place], 1.2.840.1 [id number] 9944 Methodi 00:00:00 00:00:[address] 3.430.2.7 Hospit a .3.197392 l .8 2022-04-09 2022-04-09 Refill [place], 1.2.840.1 [id number] [id number] 0231 Methodi 00:00:00 00:00:[address] 3.430.2.7 Hospit a .3.250558 l .8 2022-03-09 2022-03-09 Outpatient FOG_Elkousy AOSM AOSM 623 Arlin 00:00:00 00:00:00 _Gato 326621 Orth ope dic Sports Medicin e 2022-03-09 2022-03-09 Nely Torres AOSM [place] - Ortho 2021lea 00:00:00 00:00:00 Laura Andrews MD: 7401 FOG_Ofc dic [facility] Spo [facility], [place] [address] , Ph. [phone] 2022-03-06 2022-03-06 Outpatient FOG_Elkousy AO AO 623 6- Arlin 00:00:00 00:00:00 _Gato 477599 Orth ope dic Sports Medicin e 2022-02-16 2022-02-16 Outpatient Daniel_T VFP VFP [id number] 20 [facility] 00:00:00 00:00:00 [id number] Family Practic e 2022-02-16 2022-02-16 Outpatient VFP VFP [id number] 20 [facility] 00:00:00 00:00:00 [id number] Family Practic e 2022-02-16 2022-02-16 Outpatient VFP VFP [id number] 20 [facility] 00:00:00 00:00:00 [id number] Family Practic e 2022-02-06 2022-02-06 Outpatient Daniel_T VFP VFP [id number] 20 [facility] 00:00:00 00:00:00 [id number] Family Practic e 2022-02-01 2022-02-01 Outpatient Daniel_T VFP VFP [id number] [address] [place] [address] 00:00:00 00:00:00 [id number] Family Practic e 2022-02-01 2022-02-01 Carson VFP [place] - [id number] V illage 00:00:00 00:00:00 [facility] Charity Sheldon MD: 88119 VM_HOU_Shanick e [facility], [address], [place] [address] , Ph. 2022-01-25 2022-01-25 Outpatient Daniel_T VFP VFP [id number] 20 [facility] 00:00:00 00:00:00 [id number] Family Practic e 2022-01-04 2022-01-04 Outpatient Pito_T VFP VFP [id number] [address] [place] [address] 00:00:00 00:00:00 [id number] Family Practic e 2021-12-29 2021-12-29 Outpatient FOG_Elkousy AOSM AOSM 623 2176-20 Arlin 02:36:00 02:36:00 _Gato 817566 Orth ope dic Sports Medicin e 2021-12-29 2021-12-29 Roger Burk AOSM [place] - Ortho 14 Arlin 00:00:00 00:00:00 MD Jewel: Laura Maravilla - Orthope [address] FOG_Ofc dic [facility], [place] [address] , Ph. [phone] 2021-12-29 2021-12-29 Outpatient GARFIELD Holloway AOSM [id number] 4-0 00:00:00 00:00:00 Roger Burk [id number] 2021-12-24 2021-12-24 Outpatient FOG_Elkousy AOSM AOSM 623 2176-20 Arlin 02:19:00 02:19:00 _Gato 668089 Orth ope dic Sports Medicin e 2021-12-24 2021-12-24 Outpatient FOG_Elkousy AOSM AOSM 623 2176-20 Arlin 02:19:00 02:19:00 _Gato 756304 Orth ope dic Sports Medicin e 2021-12-23 2021-12-23 Outpatient Pito_T VFP VFP [id number] [address] [place] [address] 10:31:00 10:31:00 [id number] Family Practic e 2021-12-23 2021-12-23 Carson VFP [place] - [id number] V illage 00:00:00 00:00:00 [facility] Family Sheldon, Medical - Practi sae WARD: 27704 VM_HOU_Roly e [facility] [place] [facility], [address], [place] [address] , Ph. 2021-12-16 2021-12-16 Outpatient GRETA GalindoTO PAIN [id number] [facility] 10:15:00 10:15:00 [place] [facility] [place] [facility] 2021-11-28 2021-11-28 Office MAGDALENA Wheeler 6400 1.2.378.048 2881 50753 [place] 10:30:00 10:50:33 Visit Joby GOLDBERG 350.1.13.58 [place] [address].2.7.2.686 [id number] 5 2021-11-28 2021-11-28 Outpatient FOG_Elkousy AOSM AOSM 623 2176-20 Arlin 04:52:00 04:52:00 _Gato 051332 Orth ope dic Sports Medicin e 2021-11-24 2021-11-24 Outpatient FOG_Elkousy AOSM AOSM 623 2176-20 Arlin 11:55:00 11:55:00 _Gato 291079 Orth ope dic Sports Medicin e 2021-11-23 2021-11-23 Outpatient FOG_Elkousy AOSM AOSM 623 2176-20 Arlin 01:50:00 01:50:00 _Gato 570943 Orth ope dic Sports Medicin e 2021-11-23 2021-11-23 Telephone Whitley Bryson [facility] 1.2.840. 114 [id number] [place] 00:00:00 00:00:00 Whitley Bryson SPARTA 350.1.13.58 [facility] 9.2.7.2.686 [facility] [id number] 2 2021-11-23 2021-11-23 Houtan A AOSM [place] - Ortho Arlin 00:00:00 00:00:00 MD Jewel: Laura Maravilla - Orthope [address] [address] FOG_Ofc dic [place], [place] [address], [place] [address] , Ph. [phone] 2021-11-23 2021-11-23 Outpatient GARFIELD Holloway AOSM [id number] [id number] 00:00:00 00:00:00 Houtan A [id number] 2021-11-18 2021-11-18 Outpatient FOG_Elkous[place] AOSM AOSM 623 2176- [place] 12:41:00 12:41:00 _Gato 928454 Orth ope dic Sports Medicin e 2021-11-18 2021-11-18 Outpatient FOG_Elkousy AOSM AOSM 623 6- [place] 12:41:00 12:41:00 _Gato 776848 Orth ope dic Sports Medicin e 2021-11-17 2021-11-17 Outpatient Daniel_T VFP VFP [id number] [address] [place] [address] 06:56:00 06:56:00 [id number] Family Practic e 2021-11-07 2021-11-07 Travel 1.2.840.1 1.2.365.691 4547 611515 Methodi 00:00:00 00:00:[address] 3.430.2.7 0.2.7.3.698 Ho spita .3.866021 084.8 l .8 2021-10-19 2021-10-19 Outpatient Daniel_T VFP VFP [id number] [address] [place] [address] 06:10:00 06:10:00 [id number] Family Practic e 2021-10-04 2021-10-04 Outpatient Daniel_T VFP VFP [id number] [address] [place] [address] 03:48:00 03:48:00 [id number] Family Practic e 2021-10-04 2021-10-04 Carson VFP [place] - [id number] V illage 00:00:00 00:00:00 [facility] Family PitoChraity - Matteo yousif MD: 22508 VM_JUAN M_Roly e [facility], [address], [place] [address] , Ph. 2021-08-26 2021-08-26 Outpatient Daniel_T VFP VFP [id number] [address] [place] [address] 08:52:00 08:52:00 [id number] Family Practic e 2021-08-09 2021-08-09 Outpatient Daniel_T VFP VFP [id number] [address] [place] [address] 12:16:00 12:16:00 [id number] Family Practic e 2021-08-04 2021-08-04 Outpatient Daniel_T VFP VFP [id number] 20 [facility] 03:46:00 03:46:00 [id number] Family Practic e 2021-08-04 2021-08-04 Carson VFP [place] - [id number] V illage 00:00:00 00:00:00 Samantha [facility] Family Sheldon, Charity - Pracedin yousif MD: 56145 VM_HOU_Shad e [facility], [address], [place] [address] , Ph. 2021-07-18 2021-07-18 Orders [place], 1.2.840.1 [id number] 3124 Methodi 00:00:00 00:00:00 Only Lora Yee 81601.1.[address] 3.430.2.7 Hospit a .3.775697 l .8 2021-07-15 2021-07-15 Refill [place], 1.2.840.1 [id number] 4521 Methodi 00:00:00 00:00:[address] 3.430.2.7 Hospit a .3.200102 l .8 2021-07-13 2021-07-13 Orders [place], 1.2.840.1 [id number] 3038 Methodi 00:00:00 00:00:00 Only Lora Yee [address]150.1.[address] 3.430.2.7 Hospit a .3.404842 l .8 2021-07-13 2021-07-13 Refill [place], 1.2.840.1 [id number] 3273 Methodi 00:00:00 00:00:[address] 3.430.2.7 Hospit a .3.596265 l .8 2021-06-22 2021-06-22 Outpatient Daniel_T VFP VFP [id number] [address] [place] [address] 02:42:00 02:42:00 [id number] Family Practic e 2021-05-23 2021-05-23 Outpatient Daniel_T VFP VFP [id number] [address] [place] [address] 06:17:00 06:17:00 [id number] Family Practic e 2021-05-23 2021-05-23 Outpatient Daniel_T VFP VFP [id number] [address] [place] [address] 06:17:00 06:17:00 [id number] Family Practic e 2021-04-15 2021-04-15 Outpatient Daniel_T VFP VFP [id number] [address] [place] [address] 01:48:00 01:48:00 [id number] Family Practic e 2021-04-15 2021-04-15 Carson VFP [place] - [id number] V illage 00:00:00 00:00:00 [facility] Family SheldonCharity - Matteo yousif MD: 26626 Lizbeth pennington Shadow [facility], [facility] [address] [address] , Ph. 2021-02-24 2021-02-24 Outpatient Daniel_T VFP VFP [id number] [address] [place] [address] 03:30:00 03:30:00 [id number] Family Practic e 2021-01-22 2021-01-22 Outpatient Daniel_T VFP VFP [id number] [address] [place] [address] 09:37:00 09:37:00 [id number] Family Practic e 2021-01-20 2021-01-20 Outpatient Daniel_T VFP VFP [id number] [address] [place] [address] 06:26:00 06:26:00 [id number] Family Practic e 2021-01-20 2021-01-20 Carson VFP [place] - [id number] V illage 00:00:00 00:00:00 [facility] Family SheldonCharity MD: 09046 Lizbeth pennington Shadow [facility], [address], [place] [address] , Ph. 2020-11-13 2020-11-13 Outpatient Daniel_T VFP VFP [id number] [address] [place] [address] 02:42:00 02:42:00 [id number] Family Practic e 2020-11-13 2020-11-13 Outpatient Daniel_T VFP VFP [id number] [address] [place] [address] 02:42:00 02:42:00 [id number] Family Practic e 2020-11-13 2020-11-13 Outpatient Daniel_T VFP VFP [id number] [address] [place] [address] 02:42:00 02:42:00 [id number] Family Practic e 2020-11-13 2020-11-13 Outpatient Daniel_T VFP VFP [id number] [address] [place] [address] 02:42:00 02:42:00 [id number] Family Practic e 2020-10-15 2020-10-15 Outpatient Daniel_T VFP VFP [id number] [address] [place] [address] 02:19:00 02:19:00 [id number] Family Practic e 2020-10-14 2020-10-14 Outpatient Daniel_T VFP VFP [id number] [address] [place] [address] 11:20:00 11:20:00 [id number] Family Practic e 2020-10-14 2020-10-14 [place] [facility] [place] - [id number] [place] 00:00:00 00:00:00 [facility] Charity Sheldon MD: [id number] Lizbeth pennington Shadow ow [facility], [facility] [address] [address] , Ph. 2020-07-16 2020-07-16 Outpatient Daniel_T VFP VFP [id number] [address] [place] [address] 06:12:00 06:12:00 [id number] Family Practic e 2020-07-15 2020-07-15 Outpatient [facility] [id number] [address] [place] [address] 00:00:00 00:00:[address] 2020-07-14 2020-07-14 Outpatient Daniel_T VFP VFP [id number] [address] [place] [address] 01:44:00 01:44:00 [id number] Family Practic e 2020-07-14 2020-07-14 [facility] [place] - [id number] [place] 00:00:00 00:00:00 [facility] Charity Sheldon MD: [id number] Lizbeth pennington Shadow [facility], [address], [place] [address] , Ph. 2020-07-13 2020-07-13 Outpatient Daniel_T VFP VFP [id number] [facility] 06:05:00 06:05:00 [id number] Family Practic e 2020-06-23 2020-06-23 Outpatient [facility] [id number] [place] 00:00:00 00:00:[address] 2020-04-30 2020-04-30 Outpatient Daniel_T VFP VFP [id number] [address] [place] [address] 01:32:00 01:32:00 [id number] Family Practic e 2020-04-24 2020-04-24 Outpatient Daniel_T VFP VFP [id number] [address] [place] [address] 03:48:00 03:48:00 Family Practic e 2020-04-14 2020-04-14 Outpatient Daniel_T VFP VFP [id number] [address] [place] [address] 04:51:00 04:51:00 [id number] Family Practic e 2020-04-14 2020-04-14 [place] [facility] [place] - [id number] [place] 00:00:00 00:00:00 [facility] Family SheldonCharity - Practi sae WARD: [id number] VM_CHRISTOSU_Nicolas e Shadow [facility], [address], [place] [address] , Ph. 2020-03-15 2020-03-15 Outpatient Daniel_T VFP VFP [id number] [address] [place] [address] 10:19:00 10:19:00 [id number] Family Practic e 2020-01-26 2020-01-[facility] Cardiology [id number] [place] 15:15:00 15:15:00 tMICHAEL BERMAN, [facility] rodney RODRIGUEZ M.D. [facility] Armin [place] 2019-12-03 2019-12-03 Outpatient PETAK, [facility] [id number] [place] 00:00:00 00:00:00 L[facility] 2016-06-30 2016-06-30 Outpatient IE IE [id number] [facility] 13:00:00 13:00:00 09 sierra Butler 2016-06-30 2016-06-30 Outpatient [facility]IE MHIE [id number] [place] 13:00:00 13:00:00 09 sierra Luke 2016-04-21 2016-04-21 Outpatient MHIE MHIE [id number] [facility] 13:30:00 13:30:00 07 sierra Luke 2016-04-21 2016-04-21 Outpatient MHIE MHIE [id number] [facility] 13:30:00 13:30:00 07 sierra Butler 2016-03-27 2016-03-27 Outpatient [facility]IE [facility] [id number] [place] 11:30:00 11:30:00 08 sierra Butler 2016-03-27 2016-03-27 Outpatient MHIE MHIE [id number] Memoria 11:30:00 11:30:00 08 sierra Luke 2016-03-09 2016-03-09 Outpatient MHIE MHIE [id number] Memoria 11:00:00 11:00:00 06 sierra [place] 2016-03-09 2016-03-09 Outpatient MHIE IE [id number] Memoria 11:00:00 11:00:00 06 sierra [place] 2016-02-08 2016-02-15 [facility] [id number] Memoria 15:51:00 01:30:00 r Luke 00 [facility] 2016-02-08 2016-02-15 Inpatient [facility]Flavo [facility] [id number] Memoria 15:51:00 01:30:00 r Luke 00 l [facility] 2016-02-08 2016-02-14 Outpatient Riley Whyte [facility] [id number] 10:51:00 20:30:00 Jese 00 2016-02-08 2016-02-08 Outpatient MHIE IE [id number] Memoria 07:30:00 07:30:00 05 sierra [place] 2016-02-08 2016-02-08 Outpatient MHIE MHIE [id number] Memoria 07:30:00 07:30:00 05 sierra [place] 2016-01-11 2016-01-19 [facility]patient [facility] [id number] Memoria 21:33:00 21:30:00 r Luke 08 [facility] 2016-01-11 2016-01-19 Inpatient [facility]Flavo [facility] [id number] Memoria 21:33:00 21:30:00 r Luke 08 [facility] 2016-01-11 2016-01-19 Outpatient Coreen [facility] [id number] 16:33:00 16:30:00 Jean Paul Quiroga 08 2016-01-17 2016-01-17 Outpatient MHIE MHIE [id number] Memoria 11:00:00 11:00:00 04 sierra Butler 2016-01-17 2016-01-17 Outpatient MHIE MHIE [id number] Memoria 11:00:00 11:00:00 04 sierra [place] 2016-01-11 2016-01-11 Pre Admit nullFlavo [facility] [id number] Memoria 04:00:00 04:00:00 r [place] Eduar [facility] 2016-01-11 2016-01-11 Pre Admit [facility]Flavo [facility] [id number] Memoria 04:00:00 04:00:00 r Luke Eduar [facility] 2016-01-10 2016-01-10 Outpatient Ranjit Drew [facility] [id number] 23:00:00 23:00:00 Peterson 07 2015-12-15 2015-12-15 Outpatient MHIE MHIE [id number] Memoria 14:00:00 14:00:00 03 sierra Butler 2015-12-15 2015-12-15 Outpatient MHIE MHIE [id number] Memoria 14:00:00 14:00:00 03 sierra Butler 2015-12-15 2015-12-15 Outpatient MHIE MHIE [id number] Memoria 13:30:00 13:30:00 02 sierra Butler 2015-12-15 2015-12-15 Outpatient MHIE MHIE [id number] Memoria 13:30:00 13:30:00 02 sierra Butler 2015-12-15 2015-12-15 Outpatient MHIE MHIE [id number] Memoria 11:00:00 11:00:00 01 sierra Butler 2015-12-15 2015-12-15 Outpatient MHIE MHIE [id number] Memoria 11:00:00 11:00:00 01 sierra Butler 2015-12-02 2015-12-02 Outpatient MHIE MHIE [id number] Memoria 11:00:00 11:00:00 00 [facility] 2015-12-02 2015-12-02 Outpatient [facility] [id number] Memoria 11:00:00 11:00:00 00 [facility] 2014-03-25 2014-03-26 Outpt Diag nullFlavo [facility] [id number] Memoria 14:57:00 04:59:00 Services r Outpatient 04 l Imaging [facility] 2014-03-25 2014-03-26 Outpt Diag nullFlavo [facility] [id number] Memoria 14:57:00 04:59:00 Services r Outpatient 04 l Imaging [facility] 2014-03-25 2014-03-25 Outpatient William, 2.16.840. 2.16.840.1. [id number] 09:57:00 23:59:00 Keron [id number]. [id number] Gabbie 3.615.0.1 [id number] 70 6417-04-02 2013-09-18 Outpt Diag nullFlavo [facility] [id number] Memoria 16:29:00 04:59:00 Services r Outpatient [id number] l Imaging 9 [facility] 2013-09-17 2013-09-18 Outpt Diag nullFlavo [facility] [id number] Memoria 16:29:00 04:59:00 Services r Outpatient [id number] l Imaging 9 [facility] 2013-09-17 2013-09-17 Outpatient William, 2.16.840. 2.16.840.1. [id number] 11:29:00 23:59:00 Keron [id number]. [id number] Gabbie 3.615.0.1 [id number] 83 2407-04-18 2012-10-06 Inpatient nullFlavo [facility] [id number] Memoria 08:38:00 12:00:00 r Medical 00 [facility] 2012-10-03 2012-10-06 Inpatient nullFlavo [facility] [id number] Memoria 08:38:00 12:00:00 r Medical [address] [place] [address] Results Test Description Test Time Test Comments Results Result Comments Source Glucose [Mass/volume] in Capillary blood 2022-11-24 09:12:48 Test Item Value Reference Range Interpretation Comme nts Blood Glucose: mg/dl (test code = Blood Glucose: mg/dl) [facility] [id number] 12:12:08 Test Item Value Reference Range Interpretation Comments Blood Glucose: mg/dl (test code = Blood 144 Glucose: mg/dl) [facility] in [facility] [id number] 11:16:24 Test Item Value Reference Range Interpretation Comments Blood Glucose: mg/dl (test code = Blood 286 Glucose: mg/dl) [facility] in Capillary [id number] 14:52:13 Test Item Value Reference Range Interpretation Comments Blood Glucose: mg/dl (test code = Blood 243 Glucose: mg/dl) [facility] FLUORO FOR SPINE [id number] 18:07:00 [facility] 1940 Sex: F Patient Name: AMANDA LOVE Unit No: [id number] EXAMS: CPT CODE: [id number] XR FLUORO FOR SPINE INJ 53471 LUMBAR EPIRADICULAR INJECTION REFERRAL PHYSICIAN: Dr. Madrid [...] epidurogram. There were no signs of intravascular or intrathecal uptake. Bupivicaine 0.75% 0.25 mL with lidocaine 4% 0.5 mL and Decadron 5 mg was then incrementally injected with frequent negative aspirations at each level and again there were no signs of intravascular or intrathecal uptake. The needles were removed and the patient was taken to the PACU in good condition. Image: Image 1 Image: Image 2 Electronically Signed by BRANDIN CLARK MD on at 1807 Reported and signed by: BRANDIN CLARK MD CC: Phillip Castaneda MD Technologist: MICHELL SOTO (RT.R) Transcribed D/ (1806) [facility] [place] NAME: AMANDA LOVE [address] [facility] PHYS: Phillip Ladd MD [place], [place] [address] : 1940GE: 81 SEX: F LOC: CHON PHONE #: [phone] EXAM DATE: 12/16/2021 STATUS: [facility] FAX #: [phone] RAD #: [id number] D/C DT PAGE 1 Signed Report Patient Name: AMANDA LOVE Unit No: [id number] EXAMS: CPT CODE: [id number] XR FLUORO FOR SPINE INJ [id number] (Continued) Orig Print D/T: S: 12/23/2021 (1809) [facility] [place] [facility] [address] [facility] Phillip Ladd MD [place], [place] [address] : 1940 AGE: 81 SEX: F LOC: CHON PHONE #: [phone] EXAM DATE: 12/16/2021 STATUS: [facility] FAX #: [phone] [facility] #: [id number] D/C DT PAGE 2 Signed ReportGlucose [Mass/volume] in Capillary [id number] 08:37:03 Test Item Value Reference Range Interpretation Comments Blood Glucose: mg/dl (test code = Blood 220 Glucose: mg/dl) [facility]xt[facility]hlRPAXOF5093-17-28 14:01:00 Test Item Value Reference Range Interpretation Comments GLUBED (test code = GLUBED) 144 mg/dL 60-125 H [id number] 12:03:00 Test Item Value Reference Range Interpretation Comments GLUBED (test code = GLUBED) 138 mg/dL 60-125 H Hemoglobin A1c measurement device [id number] 14:11:19 Test Item Value Reference Range Interpretation Comments Hemoglobin A1C Fingerstick: (test code 7.2 = Hemoglobin A1C Fingerstick:) [facility] in Capillary [id number] 14:04:17 Test Item Value Reference Range Interpretation Comments Blood Glucose: mg/dl (test code = Blood 190 Glucose: mg/dl) [facility]] in Capillary [id number] 13:54:58 Test Item Value Reference Range Interpretation Comments Blood Glucose: mg/dl (test code = Blood 167 Glucose: mg/dl) [facility] [id number] 12:17:07 Test Item Value Reference Range Interpretation Comments Hemoglobin A1C Fingerstick: (test code 8.4 = Hemoglobin A1C Fingerstick:) [facility] [[facility]/volume] in Capillary [id number] 12:14:41 Test Item Value Reference Range Interpretation Comments Blood Glucose: mg/dl (test code = Blood 212 Glucose: mg/dl) [facility] [id number] 09:05:00 Test Item Value Reference Range Interpretation Comments Magnesium Lvl (test code = Magnesium 1.8 1.8-2.4 Lvl) [facility] InnaVirVax [id number] 09:05:00 Test Item Value Reference Range Interpretation Comments Phosphorus (test code = Phosphorus) 2.4 2.5-4.5 [facility]2016-08-01 09:05:00 Test Item Value Reference Range Interpretation Comments CO2 (test code = CO2) 30 24-32 [facility]2016-08-01 09:05:00 Test Item Value Reference Range Interpretation Comments Glucose Lvl (test code = Glucose Lvl) 240 70-99 [facility]2016-08-01 09:05:00 Test Item Value Reference Range Interpretation Comments Creatinine Lvl (test code = Creatinine 0.80 0.50-1.40 Lvl) [facility]2016-08-01 09:05:00 Test Item Value Reference Range Interpretation Comments BUN (test code = BUN) 20 7-22 [facility]2016-08-01 09:05:00 Test Item Value Reference Range Interpretation Comments eGFR (test code = eGFR) 73 [facility]2016-08-01 09:05:00 Test Item Value Reference Range Interpretation Comments Albumin Lvl (test code = Albumin Lvl) 2.8 3.5-5.0 [facility]2016-08-01 09:05:00 Test Item Value Reference Range Interpretation Comments Calcium Lvl (test code = Calcium Lvl) 10.5 8.5-10.5 [facility]2016-08-01 09:05:00 Test Item Value Reference Range Interpretation Comments Potassium Lvl (test code = Potassium 4.3 3.5-5.1 Lvl) [facility]2016-08-01 09:05:00 Test Item Value Reference Range Interpretation Comments Chloride Lvl (test code = Chloride Lvl) 107 95-109 [facility]2016-08-01 09:05:00 Test Item Value Reference Range Interpretation Comments Sodium Lvl (test code = Sodium Lvl) 143 135-145 [facility]2016-08-01 09:05:00 Test Item Value Reference Range Interpretation Comments AGAP (test code = AGAP) 10.3 10.0-20.0 [facility]UuenvygMLRQQBRJTQ3381-27-66 09:05:00 Test Item Value Reference Range Interpretation Comments Lymphocytes # (test code = Lymphocytes 1.3 1.0-5.5 #) [facility]anoLpjepfoDSXYDZVVGV6210-86-70 09:05:00 Test Item Value Reference Range Interpretation Comments Segs-Bands # (test code = Segs-Bands #) 4.4 1.5-8.1 [facility]anoRyepiliSQHKGFTKXI3346-17-78 09:05:00 Test Item Value Reference Range Interpretation Comments Eosinophils # (test code 0.3 See_Comment [A utomated message] The = Eosinophils #) system whic h generated this result tra nsmitted reference range : <=0.5. The reference r leatha was not used to int erpret this result as normal/abnormal . [facility]anoYfqqqqbFOBWLZRNWS2339-00-03 09:05:00 Test Item Value Reference Range Interpretation Comments Monocytes # (test code 0.6 See_Comment [Aut omated message] The = Monocytes #) system which generated this result tra nsmitted reference range : <=0.8. The reference r leatha was not used to int erpret this result as normal/abnormal . [facility]anoFrwwrpjKORRVRTIAJ8961-48-82 09:05:00 Test Item Value Reference Range Interpretation Comments Basophils (test code = 0.5 See_Comment [Aut omated message] The Basophils) system which ge nerated this result tra nsmitted reference range : <=1.0. The reference r leatha was not used to int erpret this result as normal/abnormal . [facility]anoDdvxdlfZKNGCCHBQA6274-70-99 09:05:00 Test Item Value Reference Range Interpretation Comments Eosinophils (test code = 4.9 See_Comment [A utomated message] The Eosinophils) system which ge nerated this result tra nsmitted reference range : <=4.0. The reference r leatha was not used to int erpret this result as normal/abnormal . [facility]anoIxuosstHIDEBFKLEQ7438-88-64 09:05:00 Test Item Value Reference Range Interpretation Comments Monocytes (test code = Monocytes) 9.1 2.0-12.0 [facility]anoGapdmyhYBKSUWZRRT4999-04-18 09:05:00 Test Item Value Reference Range Interpretation Comments Lymphocytes (test code = Lymphocytes) 18.9 20.0-40.0 [facility]anoUpdqnjmGXQWUYEFEE7853-18-09 09:05:00 Test Item Value Reference Range Interpretation Comments Segs (test code = Segs) 66.6 45.0-75.0 [facility]anoNkuecmeUMMGQZHMBC3621-97-56 09:05:00 Test Item Value Reference Range Interpretation Comments MPV (test code = MPV) 9.4 7.4-10.4 [facility]LbhwjsnMOIMHVXZBF9188-67-74 09:05:00 Test Item Value Reference Range Interpretation Comments Platelet (test code = Platelet) 168 133-450 [facility] HospitalMbpzwudWKNNRQKNJN2158-64-50 09:05:00 Test Item Value Reference Range Interpretation Comments RDW (test code = RDW) 13.4 11.5-14.5 [facility] HospitalSagsnlbHDMERYJVQX8619-45-14 09:05:00 Test Item Value Reference Range Interpretation Comments MCHC (test code = MCHC) 32.8 32.0-36.0 [facility] HospitalNdnvavoWEDQIQZVMY8488-33-27 09:05:00 Test Item Value Reference Range Interpretation Comments MCH (test code = MCH) 30.7 pg 27.0-31.0 [facility] HospitalDmtarvvYXIPDYVESD1092-72-40 09:05:00 Test Item Value Reference Range Interpretation Comments MCV (test code = MCV) 93.6 80.0-98.0 [facility] HospitalXczspnnUMJHLCEXPN4916-47-76 09:05:00 Test Item Value Reference Range Interpretation Comments WBC (test code = WBC) 6.6 3.7-10.4 [facility] HospitalXqzlvqwPQNJAMTAMQ4829-78-90 09:05:00 Test Item Value Reference Range Interpretation Comments Hct (test code = Hct) 41.0 36.0-48.0 [facility] HospitalOdfnwlgJCHBVTVFWH7861-43-26 09:05:00 Test Item Value Reference Range Interpretation Comments Hgb (test code = Hgb) 13.4 12.0-16.0 [facility] HospitalQgyzftmRPHGLILMGH8481 09:05:00 Test Item Value Reference Range Interpretation Comments RBC (test code = RBC) 4.38 4.20-5.40 [facility] KKVPHPNYW9932-09-26 09:05:00 Test Item Value Reference Range Interpretation Comments Hgb A1C (test code = Hgb A1C) 10.3 [facility] [id number] 09:05:00 Test Item Value Reference Range Interpretation Comments Magnesium Lvl (test code = Magnesium 1.8 1.8-2.4 Lvl) [facility] [id number] 09:05:00 Test Item Value Reference Range Interpretation Comments Phosphorus (test code = Phosphorus) 2.4 2.5-4.5 [facility]2016-08-01 09:05:00 Test Item Value Reference Range Interpretation Comments CO2 (test code = CO2) 30 24-32 [facility]2016-08-01 09:05:00 Test Item Value Reference Range Interpretation Comments Glucose Lvl (test code = Glucose Lvl) 240 70-99 [facility]2016-08-01 09:05:00 Test Item Value Reference Range Interpretation Comments Creatinine Lvl (test code = Creatinine 0.80 0.50-1.40 Lvl) [facility]2016-08-01 09:05:00 Test Item Value Reference Range Interpretation Comments BUN (test code = BUN) 20 7-22 [facility]2016-08-01 09:05:00 Test Item Value Reference Range Interpretation Comments eGFR (test code = eGFR) 73 [facility]2016-08-01 09:05:00 Test Item Value Reference Range Interpretation Comments Albumin Lvl (test code = Albumin Lvl) 2.8 3.5-5.0 [facility]2016-08-01 09:05:00 Test Item Value Reference Range Interpretation Comments Calcium Lvl (test code = Calcium Lvl) 10.5 8.5-10.5 [facility]2016-08-01 09:05:00 Test Item Value Reference Range Interpretation Comments Potassium Lvl (test code = Potassium 4.3 3.5-5.1 Lvl) [facility]2016-08-01 09:05:00 Test Item Value Reference Range Interpretation Comments Chloride Lvl (test code = Chloride Lvl) 107 95-109 [facility]2016-08-01 09:05:00 Test Item Value Reference Range Interpretation Comments Sodium Lvl (test code = Sodium Lvl) 143 135-145 [facility]2016-08-01 09:05:00 Test Item Value Reference Range Interpretation Comments AGAP (test code = AGAP) 10.3 10.0-20.0 [facility]anoOlteobpEDZJIAKAEE7659-20-63 09:05:00 Test Item Value Reference Range Interpretation Comments Lymphocytes # (test code = Lymphocytes 1.3 1.0-5.5 #) [facility]anoJbesazoYYMXEPGONG9988-44-35 09:05:00 Test Item Value Reference Range Interpretation Comments Segs-Bands # (test code = Segs-Bands #) 4.4 1.5-8.1 [facility]anoXbulbpcPLTXYHBLOJ6089-23-96 09:05:00 Test Item Value Reference Range Interpretation Comments Eosinophils # (test code 0.3 See_Comment [A utomated message] The = Eosinophils #) system whic h generated this result tra nsmitted reference range : <=0.5. The reference r leatha was not used to int erpret this result as normal/abnormal . [facility] PlanoFlaikidBHYNXUWRRW6193-74-33 09:05:00 Test Item Value Reference Range Interpretation Comments Monocytes # (test code 0.6 See_Comment [Aut omated message] The = Monocytes #) system which generated this result tra nsmitted reference range : <=0.8. The reference r leatha was not used to int erpret this result as normal/abnormal . [facility]anoYpedsixFVWYXNQWIR0922-69-92 09:05:00 Test Item Value Reference Range Interpretation Comments Basophils (test code = 0.5 See_Comment [Aut omated message] The Basophils) system which ge nerated this result tra nsmitted reference range : <=1.0. The reference r leatha was not used to int erpret this result as normal/abnormal . [facility]anoGihjzlgNWWIXOXKIZ6244-74-96 09:05:00 Test Item Value Reference Range Interpretation Comments Eosinophils (test code = 4.9 See_Comment [A utomated message] The Eosinophils) system which ge nerated this result tra nsmitted reference range : <=4.0. The reference r leatha was not used to int erpret this result as normal/abnormal . [facility]anoJgfisajRBGTWLNDYE2538-12-25 09:05:00 Test Item Value Reference Range Interpretation Comments Monocytes (test code = Monocytes) 9.1 2.0-12.0 [facility]anoIenyyuoZKSSGIDWYE3603-67-51 09:05:00 Test Item Value Reference Range Interpretation Comments Lymphocytes (test code = Lymphocytes) 18.9 20.0-40.0 [facility]anoJziyctcJVAAKPCIQN3552-45-08 09:05:00 Test Item Value Reference Range Interpretation Comments Segs (test code = Segs) 66.6 45.0-75.0 [facility]anoXsiodzsHZFLIBDJRH9075-78-44 09:05:00 Test Item Value Reference Range Interpretation Comments MPV (test code = MPV) 9.4 7.4-10.4 [facility] HospitalYnmqeikWLOWPXIKVA8671-73-61 09:05:00 Test Item Value Reference Range Interpretation Comments Platelet (test code = Platelet) 168 133-450 [facility] HospitalCbecxvuWNYKRGJVGF7192-98-53 09:05:00 Test Item Value Reference Range Interpretation Comments RDW (test code = RDW) 13.4 11.5-14.5 [facility] HospitalHkmocsfVFYBPANMLE8002-39-38 09:05:00 Test Item Value Reference Range Interpretation Comments MCHC (test code = MCHC) 32.8 32.0-36.0 [facility] HospitalDkgkhgzETASCTJRZI4176-11-50 09:05:00 Test Item Value Reference Range Interpretation Comments MCH (test code = MCH) 30.7 pg 27.0-31.0 [facility] HospitalHrtwbynVBIOXHGGZX4603-17-13 09:05:00 Test Item Value Reference Range Interpretation Comments MCV (test code = MCV) 93.6 80.0-98.0 [facility] HospitalCtiawflQIMMEYPTDO8096-70-03 09:05:00 Test Item Value Reference Range Interpretation Comments WBC (test code = WBC) 6.6 3.7-10.4 [facility] HospitalDrmbwjrXUYPRYUMBV3392-23-90 09:05:00 Test Item Value Reference Range Interpretation Comments Hct (test code = Hct) 41.0 36.0-48.0 [facility] HospitalFugrhdwXGMFXQGYEA3002-83-04 09:05:00 Test Item Value Reference Range Interpretation Comments Hgb (test code = Hgb) 13.4 12.0-16.0 [facility] HospitalHxidkcdJRWEMDLBFG3650-47-89 09:05:00 Test Item Value Reference Range Interpretation Comments RBC (test code = RBC) 4.38 4.20-5.40 [facility] PHOAYLOBV7781-09-29 09:05:00 Test Item Value Reference Range Interpretation Comments Hgb A1C (test code = Hgb A1C) 10.3 [facility] IHUPL3825-02-97 09:05:00 Test Item Value Reference Range Interpretation Comments Magnesium Lvl (test code = Magnesium 1.8 1.8-2.4 Lvl) [facility] [id number] 09:05:00 Test Item Value Reference Range Interpretation Comments Phosphorus (test code = Phosphorus) 2.4 2.5-4.5 [facility] EVKMA8658-30-51 09:05:00 Test Item Value Reference Range Interpretation Comments CO2 (test code = CO2) 30 24-32 [facility]2016-08-01 09:05:00 Test Item Value Reference Range Interpretation Comments Glucose Lvl (test code = Glucose Lvl) 240 70-99 [facility]2016-08-01 09:05:00 Test Item Value Reference Range Interpretation Comments Creatinine Lvl (test code = Creatinine 0.80 0.50-1.40 Lvl) [facility]2016-08-01 09:05:00 Test Item Value Reference Range Interpretation Comments BUN (test code = BUN) 20 7-22 [facility]2016-08-01 09:05:00 Test Item Value Reference Range Interpretation Comments eGFR (test code = eGFR) 73 [facility]2016-08-01 09:05:00 Test Item Value Reference Range Interpretation Comments Albumin Lvl (test code = Albumin Lvl) 2.8 3.5-5.0 [facility]2016-08-01 09:05:00 Test Item Value Reference Range Interpretation Comments Calcium Lvl (test code = Calcium Lvl) 10.5 8.5-10.5 [facility]2016-08-01 09:05:00 Test Item Value Reference Range Interpretation Comments Potassium Lvl (test code = Potassium 4.3 3.5-5.1 Lvl) [facility]2016-08-01 09:05:00 Test Item Value Reference Range Interpretation Comments Chloride Lvl (test code = Chloride Lvl) 107 95-109 [facility]2016-08-01 09:05:00 Test Item Value Reference Range Interpretation Comments Sodium Lvl (test code = Sodium Lvl) 143 135-145 [facility]2016-08-01 09:05:00 Test Item Value Reference Range Interpretation Comments AGAP (test code = AGAP) 10.3 10.0-20.0 [facility]anoIwigoigKLINYFBYCU6579-73-08 09:05:00 Test Item Value Reference Range Interpretation Comments Lymphocytes # (test code = Lymphocytes 1.3 1.0-5.5 #) [facility]anoXudvteoROQUUIVFOP0393-80-59 09:05:00 Test Item Value Reference Range Interpretation Comments Segs-Bands # (test code = Segs-Bands #) 4.4 1.5-8.1 [facility]anoLsyuolzATCMRNMWRU3423-09-05 09:05:00 Test Item Value Reference Range Interpretation Comments Eosinophils # (test code 0.3 See_Comment [A utomated message] The = Eosinophils #) system whic h generated this result tra nsmitted reference range : <=0.5. The reference r leatha was not used to int erpret this result as normal/abnormal . [facility]anoEedojbyXDBGRTJHXN7148-42-30 09:05:00 Test Item Value Reference Range Interpretation Comments Monocytes # (test code 0.6 See_Comment [Aut omated message] The = Monocytes #) system which generated this result tra nsmitted reference range : <=0.8. The reference r leatha was not used to int erpret this result as normal/abnormal . [facility]anoKrplimwXUFHWBQIDN9398-44-85 09:05:00 Test Item Value Reference Range Interpretation Comments Basophils (test code = 0.5 See_Comment [Aut omated message] The Basophils) system which ge nerated this result tra nsmitted reference range : <=1.0. The reference r leatha was not used to int erpret this result as normal/abnormal . [facility]anoLsavrgyGXKNDLIJKK8074-23-37 09:05:00 Test Item Value Reference Range Interpretation Comments Eosinophils (test code = 4.9 See_Comment [A utomated message] The Eosinophils) system which ge nerated this result tra nsmitted reference range : <=4.0. The reference r leatha was not used to int erpret this result as normal/abnormal . [facility]anoHdezxtmZSPYGDABGW6306-04-16 09:05:00 Test Item Value Reference Range Interpretation Comments Monocytes (test code = Monocytes) 9.1 2.0-12.0 [facility]anoOuiynqrQDMEPRKRRI9615-69-70 09:05:00 Test Item Value Reference Range Interpretation Comments Lymphocytes (test code = Lymphocytes) 18.9 20.0-40.0 [facility] [facility]zjasnPLJQUOZDAH5685[facility]-43 [facility]:05:00 Test Item Value Reference Range Interpretation Comments Segs (test code = Segs) 66.6 45.0-75.0 [facility]OxfruypUPVAQATURI4792-33-69 09:05:00 Test Item Value Reference Range Interpretation Comments MPV (test code = MPV) 9.4 7.4-10.4 [facility]NkeeakfELYAZBRLZU9944-22-92 09:05:00 Test Item Value Reference Range Interpretation Comments Platelet (test code = Platelet) 168 133-450 [facility] HospitalWhbeykmPSYZWMSWFY7188-58-75 09:05:00 Test Item Value Reference Range Interpretation Comments RDW (test code = RDW) 13.4 11.5-14.5 [facility] HospitalJvtizchOLLSUBHOAA8836-32-18 09:05:00 Test Item Value Reference Range Interpretation Comments MCHC (test code = MCHC) 32.8 32.0-36.0 [facility] HospitalSiyiifzXVJVPWALXB9934-16-93 09:05:00 Test Item Value Reference Range Interpretation Comments MCH (test code = MCH) 30.7 pg 27.0-31.0 [facility] HospitalIehujcqWDDLAPEBHD0381-29-71 09:05:00 Test Item Value Reference Range Interpretation Comments MCV (test code = MCV) 93.6 80.0-98.0 [facility] HospitalSsximdjEZYVIGWNRM3487-90-87 09:05:00 Test Item Value Reference Range Interpretation Comments WBC (test code = WBC) 6.6 3.7-10.4 [facility] HospitalRcyqzfuABIXHWOBBZ2781-55-88 09:05:00 Test Item Value Reference Range Interpretation Comments Hct (test code = Hct) 41.0 36.0-48.0 [facility] HospitalUuxbsmiYHXZUEVXSK2559-81-62 09:05:00 Test Item Value Reference Range Interpretation Comments Hgb (test code = Hgb) 13.4 12.0-16.0 [facility] HospitalLhduldzUJLLRLEQWZ4465-24-31 09:05:00 Test Item Value Reference Range Interpretation Comments RBC (test code = RBC) 4.38 4.20-5.40 [facility] LAAEQDGJQ4538-25-55 09:05:00 Test Item Value Reference Range Interpretation Comments Hgb A1C (test code = Hgb A1C) 10.3 [id number] 09:05:00 Test Item Value Reference Range Interpretation Comments Magnesium Lvl (test code = Magnesium 1.8 1.8-2.4 Lvl) [facility] [id number] 09:05:00 Test Item Value Reference Range Interpretation Comments Phosphorus (test code = Phosphorus) 2.4 2.5-4.5 [facility] EROXC9815-42-09 09:05:00 Test Item Value Reference Range Interpretation Comments CO2 (test code = CO2) 30 -32 [facility]2016-08-01 09:05:00 Test Item Value Reference Range Interpretation Comments Glucose Lvl (test code = Glucose Lvl) 240 70-99 [facility]2016-08-01 09:05:00 Test Item Value Reference Range Interpretation Comments Creatinine Lvl (test code = Creatinine 0.80 0.50-1.40 Lvl) [facility]2016-08-01 09:05:00 Test Item Value Reference Range Interpretation Comments BUN (test code = BUN) 01-06 [facility]2016-08-01 09:05:00 Test Item Value Reference Range Interpretation Comments eGFR (test code = eGFR) 73 [facility]2016-08-01 09:05:00 Test Item Value Reference Range Interpretation Comments Magnesium Lvl (test code = Magnesium 1.8 1.8-2.4 Lvl) [facility]2016-08-01 09:05:00 Test Item Value Reference Range Interpretation Comments Phosphorus (test code = Phosphorus) 2.4 2.5-4.5 [facility]2016-08-01 09:05:00 Test Item Value Reference Range Interpretation Comments CO2 (test code = CO2) 30 [facility]2016-08-01 09:05:00 Test Item Value Reference Range Interpretation Comments Glucose Lvl (test code = Glucose Lvl) 240 [facility]2016-08-01 09:05:00 Test Item Value Reference Range Interpretation Comments Creatinine Lvl (test code = Creatinine 0.80 0.50-1.40 Lvl) [facility]2016-08-01 09:05:00 Test Item Value Reference Range Interpretation Comments BUN (test code = BUN) 01-06 [facility]2016-08-01 09:05:00 Test Item Value Reference Range Interpretation Comments eGFR (test code = eGFR) 73 [facility]2016-08-01 09:05:00 Test Item Value Reference Range Interpretation Comments Albumin Lvl (test code = Albumin Lvl) 2.8 3.5-5.0 [facility]2016-08-01 09:05:00 Test Item Value Reference Range Interpretation Comments Albumin Lvl (test code = Albumin Lvl) 2.8 3.5-5.0 [facility]2016-08-01 09:05:00 Test Item Value Reference Range Interpretation Comments Calcium Lvl (test code = Calcium Lvl) 10.5 8.5-10.5 [facility]2016-08-01 09:05:00 Test Item Value Reference Range Interpretation Comments Potassium Lvl (test code = Potassium 4.3 3.5-5.1 Lvl) [facility]2016-08-01 09:05:00 Test Item Value Reference Range Interpretation Comments Chloride Lvl (test code = Chloride Lvl) 107 95-109 [facility]2016-08-01 09:05:00 Test Item Value Reference Range Interpretation Comments Sodium Lvl (test code = Sodium Lvl) 143 135-145 [facility]2016-08-01 09:05:00 Test Item Value Reference Range Interpretation Comments AGAP (test code = AGAP) 10.3 10.0-20.0 [facility]SdyhpssPQUTHMGVLF1209-11-35 09:05:00 Test Item Value Reference Range Interpretation Comments Lymphocytes # (test code = Lymphocytes 1.3 1.0-5.5 #) [facility]IjylnavMMLMSDIIJR5605-85-74 09:05:00 Test Item Value Reference Range Interpretation Comments Segs-Bands # (test code = Segs-Bands #) 4.4 1.5-8.1 [facility]anoGgwymngNENUYOXJPM1782-40-46 09:05:00 Test Item Value Reference Range Interpretation Comments Eosinophils # (test code 0.3 See_Comment [A utomated message] The = Eosinophils #) system whic h generated this result tra nsmitted reference range : <=0.5. The reference r leatha was not used to int erpret this result as normal/abnormal . [facility]anoRewmzjqUNYDDKRHMP4851-26-71 09:05:00 Test Item Value Reference Range Interpretation Comments Monocytes # (test code 0.6 See_Comment [Aut omated message] The = Monocytes #) system which generated this result tra nsmitted reference range : <=0.8. The reference r leatha was not used to int erpret this result as normal/abnormal . [facility]2016-08-01 09:05:00 Test Item Value Reference Range Interpretation Comments Calcium Lvl (test code = Calcium Lvl) 10.5 8.5-10.5 [facility]anoZwbxabeEDXYJZWDTA7787-58-22 09:05:00 Test Item Value Reference Range Interpretation Comments Basophils (test code = 0.5 See_Comment [Aut omated message] The Basophils) system which ge nerated this result tra nsmitted reference range : <=1.0. The reference r leatha was not used to int erpret this result as normal/abnormal . [facility]anoElbtmsfAWKMXYNQSD1275-83-60 09:05:00 Test Item Value Reference Range Interpretation Comments Eosinophils (test code = 4.9 See_Comment [A utomated message] The Eosinophils) system which ge nerated this result tra nsmitted reference range : <=4.0. The reference r leatha was not used to int erpret this result as normal/abnormal . [facility]anoXkxpszaKOXVIRSDHG0282-24-51 09:05:00 Test Item Value Reference Range Interpretation Comments Monocytes (test code = Monocytes) 9.1 2.0-12.0 [facility]anoTufkkltRVDYXYMAFO4964-82-94 09:05:00 Test Item Value Reference Range Interpretation Comments Lymphocytes (test code = Lymphocytes) 18.9 20.0-40.0 [facility]anoHlreizuJPHLTHSDYQ2611-27-57 09:05:00 Test Item Value Reference Range Interpretation Comments Segs (test code = Segs) 66.6 45.0-75.0 [facility]anoLeuluwyWIKNDOCYWF9253-70-67 09:05:00 Test Item Value Reference Range Interpretation Comments MPV (test code = MPV) 9.4 7.4-10.4 [facility]anoMvobzjsUNXUIKBQLP0304-19-89 09:05:00 Test Item Value Reference Range Interpretation Comments Platelet (test code = Platelet) 168 133-450 [facility]anoMmkqqouNQRXXPRXTZ1547-52-47 09:05:00 Test Item Value Reference Range Interpretation Comments RDW (test code = RDW) 13.4 11.5-14.5 [facility]anoKheduygEYCTSQNUUU6259-90-44 09:05:00 Test Item Value Reference Range Interpretation Comments MCHC (test code = MCHC) 32.8 32.0-36.0 [facility]anoFotyqhvQWSEAHCMOS4248-83-99 09:05:00 Test Item Value Reference Range Interpretation Comments MCH (test code = MCH) 30.7 pg 27.0-31.0 [facility] NPXBY2297-54-75 09:05:00 Test Item Value Reference Range Interpretation Comments Potassium Lvl (test code = Potassium 4.3 3.5-5.1 Lvl) [facility] HospitalBurcvcoRELKBWNYIN9131-00-73 09:05:00 Test Item Value Reference Range Interpretation Comments MCV (test code = MCV) 93.6 80.0-98.0 [facility]anoLdqffktCPTMDUWFJU6762-02-84 09:05:00 Test Item Value Reference Range Interpretation Comments WBC (test code = WBC) 6.6 3.7-10.4 [facility]anoMoapmmrYWPYTRDQFK6159-62-43 09:05:00 Test Item Value Reference Range Interpretation Comments Hct (test code = Hct) 41.0 36.0-48.0 [facility]anoFbydashDKYZMQKATR6720-08-83 09:05:00 Test Item Value Reference Range Interpretation Comments Hgb (test code = Hgb) 13.4 12.0-16.0 [facility]anoMarzvlpHXQTZWPAUC2569-76-09 09:05:00 Test Item Value Reference Range Interpretation Comments RBC (test code = RBC) 4.38 4.20-5.40 [facility] ZIEJHIWCP6238-44-45 09:05:00 Test Item Value Reference Range Interpretation Comments Hgb A1C (test code = Hgb A1C) 10.3 [facility] [id number] 09:05:00 Test Item Value Reference Range Interpretation Comments Chloride Lvl (test code = Chloride Lvl) 107 95-109 [facility]2016-08-01 09:05:00 Test Item Value Reference Range Interpretation Comments Sodium Lvl (test code = Sodium Lvl) 143 135-145 [facility]2016-08-01 09:05:00 Test Item Value Reference Range Interpretation Comments AGAP (test code = AGAP) 10.3 10.0-20.0 [facility] HospitalVizxfgdEZOVNXTXPE8787-01-59 09:05:00 Test Item Value Reference Range Interpretation Comments Lymphocytes # (test code = Lymphocytes 1.3 1.0-5.5 #) [facility]anoMhoewjqKDZUTXRXLB4554-87-52 09:05:00 Test Item Value Reference Range Interpretation Comments Segs-Bands # (test code = Segs-Bands #) 4.4 1.5-8.1 [facility]anoThtdvanXYQAFWIPLH8181-08-00 09:05:00 Test Item Value Reference Range Interpretation Comments Eosinophils # (test code 0.3 See_Comment [A utomated message] The = Eosinophils #) system whic h generated this result tra nsmitted reference range : <=0.5. The reference r leatha was not used to int erpret this result as normal/abnormal . [facility]anoJjahyqqSFUYHWPBUG5077-47-17 09:05:00 Test Item Value Reference Range Interpretation Comments Monocytes # (test code 0.6 See_Comment [Aut omated message] The = Monocytes #) system which generated this result tra nsmitted reference range : <=0.8. The reference r leatha was not used to int erpret this result as normal/abnormal . [facility]anoMwddkyuCOUSHYCPAJ2371-72-87 09:05:00 Test Item Value Reference Range Interpretation Comments Basophils (test code = 0.5 See_Comment [Aut omated message] The Basophils) system which ge nerated this result tra nsmitted reference range : <=1.0. The reference r leatha was not used to int erpret this result as normal/abnormal . [facility]anoTgrzjiiTZSOTECYXA8779-89-47 09:05:00 Test Item Value Reference Range Interpretation Comments Eosinophils (test code = 4.9 See_Comment [A utomated message] The Eosinophils) system which ge nerated this result tra nsmitted reference range : <=4.0. The reference r leatha was not used to int erpret this result as normal/abnormal . [facility]anoGeiprasUHRQCSDCSE9284-95-36 09:05:00 Test Item Value Reference Range Interpretation Comments Monocytes (test code = Monocytes) 9.1 2.0-12.0 [facility]anoMrhdowgBVZPMOZGGT2071-41-44 09:05:00 Test Item Value Reference Range Interpretation Comments Lymphocytes (test code = Lymphocytes) 18.9 20.0-40.0 [facility]anoAxbgewrTLFHNOARKY2572-94-67 09:05:00 Test Item Value Reference Range Interpretation Comments Segs (test code = Segs) 66.6 45.0-75.0 [facility]anoOpnvyvpCDWRSNXZUB6725-19-41 09:05:00 Test Item Value Reference Range Interpretation Comments MPV (test code = MPV) 9.4 7.4-10.4 [facility]anoExhgumwLDSLJUHOPH5468-57-10 09:05:00 Test Item Value Reference Range Interpretation Comments Platelet (test code = Platelet) 168 133-450 [facility] HospitalFmgmxtfQKSNQBIKWL4551-49-78 09:05:00 Test Item Value Reference Range Interpretation Comments RDW (test code = RDW) 13.4 11.5-14.5 [facility] HospitalYacdrzpYJSNALBOTJ6994-22-34 09:05:00 Test Item Value Reference Range Interpretation Comments MCHC (test code = MCHC) 32.8 32.0-36.0 [facility] HospitalXhrbjzhFEXXYGXBCU6253-17-77 09:05:00 Test Item Value Reference Range Interpretation Comments MCH (test code = MCH) 30.7 pg 27.0-31.0 [facility] HospitalIphuffoDSDRNKXUCB7277-46-69 09:05:00 Test Item Value Reference Range Interpretation Comments MCV (test code = MCV) 93.6 80.0-98.0 [facility] HospitalJoipegwOPAZONLCOM8166-77-24 09:05:00 Test Item Value Reference Range Interpretation Comments WBC (test code = WBC) 6.6 3.7-10.4 [facility] HospitalQixvvzjTQBMWSJRIZ9461-49-78 09:05:00 Test Item Value Reference Range Interpretation Comments Hct (test code = Hct) 41.0 36.0-48.0 [facility] HospitalNtwqpvqWRXWLNWLZP6510-63-20 09:05:00 Test Item Value Reference Range Interpretation Comments Hgb (test code = Hgb) 13.4 12.0-16.0 [facility] HospitalOehueooUNATRNTBEJ9738-82-53 09:05:00 Test Item Value Reference Range Interpretation Comments RBC (test code = RBC) 4.38 4.20-5.40 [facility] QBZEGSAFC2753-30-01 09:05:00 Test Item Value Reference Range Interpretation Comments Hgb A1C (test code = Hgb A1C) 10.3 [facility]CHE[facility] SVRMQ8572-97-89 09:05:00 Test Item Value Reference Range Interpretation Comments Magnesium Lvl (test code = Magnesium 1.8 1.8-2.4 Lvl) [facility] [id number] 09:05:00 Test Item Value Reference Range Interpretation Comments Phosphorus (test code = Phosphorus) 2.4 2.5-4.5 [facility] TOKKK4437-64-23 09:05:00 Test Item Value Reference Range Interpretation Comments CO2 (test code = CO2) 30 24-32 [facility]2016-08-01 09:05:00 Test Item Value Reference Range Interpretation Comments Glucose Lvl (test code = Glucose Lvl) 240 70-99 [facility]2016-08-01 09:05:00 Test Item Value Reference Range Interpretation Comments Creatinine Lvl (test code = Creatinine 0.80 0.50-1.40 Lvl) [facility]2016-08-01 09:05:00 Test Item Value Reference Range Interpretation Comments BUN (test code = BUN) 20 7-22 [facility]2016-08-01 09:05:00 Test Item Value Reference Range Interpretation Comments eGFR (test code = eGFR) 73 [facility]2016-08-01 09:05:00 Test Item Value Reference Range Interpretation Comments Albumin Lvl (test code = Albumin Lvl) 2.8 3.5-5.0 [facility]2016-08-01 09:05:00 Test Item Value Reference Range Interpretation Comments Calcium Lvl (test code = Calcium Lvl) 10.5 8.5-10.5 [facility]2016-08-01 09:05:00 Test Item Value Reference Range Interpretation Comments Potassium Lvl (test code = Potassium 4.3 3.5-5.1 Lvl) [facility]2016-08-01 09:05:00 Test Item Value Reference Range Interpretation Comments Chloride Lvl (test code = Chloride Lvl) 107 95-109 [facility]2016-08-01 09:05:00 Test Item Value Reference Range Interpretation Comments Sodium Lvl (test code = Sodium Lvl) 143 135-145 [facility]2016-08-01 09:05:00 Test Item Value Reference Range Interpretation Comments AGAP (test code = AGAP) 10.3 10.0-20.0 [facility]anoCmzizawMJEOSCHOEZ8275-22-23 09:05:00 Test Item Value Reference Range Interpretation Comments Lymphocytes # (test code = Lymphocytes 1.3 1.0-5.5 #) [facility]XgpomcnHMQOBEXKNH0018-72-67 09:05:00 Test Item Value Reference Range Interpretation Comments Segs-Bands # (test code = Segs-Bands #) 4.4 1.5-8.1 [facility]anoXvjxygqFAFWTKJGPD3937-45-76 09:05:00 Test Item Value Reference Range Interpretation Comments Eosinophils # (test code 0.3 See_Comment [A utomated message] The = Eosinophils #) system whic h generated this result tra nsmitted reference range : <=0.5. The reference r leatha was not used to int erpret this result as normal/abnormal . [facility]anoEfjldctCVTYBZSUVM1946-34-74 09:05:00 Test Item Value Reference Range Interpretation Comments Monocytes # (test code 0.6 See_Comment [Aut omated message] The = Monocytes #) system which generated this result tra nsmitted reference range : <=0.8. The reference r leatha was not used to int erpret this result as normal/abnormal . [facility]anoHolfllsTDNPDEHOVO3323-44-01 09:05:00 Test Item Value Reference Range Interpretation Comments Basophils (test code = 0.5 See_Comment [Aut omated message] The Basophils) system which ge nerated this result tra nsmitted reference range : <=1.0. The reference r leatha was not used to int erpret this result as normal/abnormal . [facility]anoDyidcrtZHSWGPOUUI8574-94-91 09:05:00 Test Item Value Reference Range Interpretation Comments Eosinophils (test code = 4.9 See_Comment [A utomated message] The Eosinophils) system which ge nerated this result tra nsmitted reference range : <=4.0. The reference r leatha was not used to int erpret this result as normal/abnormal . [facility]anoJopttonDZQEWUCQZY0781-11-14 09:05:00 Test Item Value Reference Range Interpretation Comments Monocytes (test code = Monocytes) 9.1 2.0-12.0 [facility]anoHcvuinlNTFYBNIDDT3704-70-33 09:05:00 Test Item Value Reference Range Interpretation Comments Lymphocytes (test code = Lymphocytes) 18.9 20.0-40.0 [facility]anoAcgxsprIYKJRMDRAT3144-53-16 09:05:00 Test Item Value Reference Range Interpretation Comments Segs (test code = Segs) 66.6 45.0-75.0 [facility]anoKzviudyHRZBWSEPSQ0547-08-18 09:05:00 Test Item Value Reference Range Interpretation Comments MPV (test code = MPV) 9.4 7.4-10.4 [facility]anoJpmsfjnAUHLNYYZQA7590-70-11 09:05:00 Test Item Value Reference Range Interpretation Comments Platelet (test code = Platelet) 168 133-450 [facility] HospitalCawmkgbIKNHTHOIPQ5479-40-53 09:05:00 Test Item Value Reference Range Interpretation Comments RDW (test code = RDW) 13.4 11.5-14.5 [facility] HospitalGxovbqaBABPBQPIGJ3513-02-10 09:05:00 Test Item Value Reference Range Interpretation Comments MCHC (test code = MCHC) 32.8 32.0-36.0 [facility] HospitalTsgduqaUZFEVFTFLS7474-54-85 09:05:00 Test Item Value Reference Range Interpretation Comments MCH (test code = MCH) 30.7 pg 27.0-31.0 [facility] HospitalPwvfilrCIEULOXUKO3316-23-27 09:05:00 Test Item Value Reference Range Interpretation Comments MCV (test code = MCV) 93.6 80.0-98.0 [facility] HospitalVpvqehfGPDIVWCPSK0447-61-73 09:05:00 Test Item Value Reference Range Interpretation Comments WBC (test code = WBC) 6.6 3.7-10.4 [facility]anoTrtymmuVRBABIEJCA2334-74-51 09:05:00 Test Item Value Reference Range Interpretation Comments Hct (test code = Hct) 41.0 36.0-48.0 [facility] HospitalYflhqmnKSTWAWYYCR8364-72-93 09:05:00 Test Item Value Reference Range Interpretation Comments Hgb (test code = Hgb) 13.4 12.0-16.0 [facility] HospitalUxdmkugFRAPPEBXBF0413-43-54 09:05:00 Test Item Value Reference Range Interpretation Comments RBC (test code = RBC) 4.38 4.20-5.40 [facility] HZAMKJVNA7753-70-08 09:05:00 Test Item Value Reference Range Interpretation Comments Hgb A1C (test code = Hgb A1C) 10.3 [facility] ENYFV3000-61-97 09:05:00 Test Item Value Reference Range Interpretation Comments Magnesium Lvl (test code = Magnesium 1.8 1.8-2.4 Lvl) [facility] [id number] 09:05:00 Test Item Value Reference Range Interpretation Comments Phosphorus (test code = Phosphorus) 2.4 2.5-4.5 [facility] AIGKW7663-08-37 09:05:00 Test Item Value Reference Range Interpretation Comments CO2 (test code = CO2) 30 24-32 [facility]2016-08-01 09:05:00 Test Item Value Reference Range Interpretation Comments Glucose Lvl (test code = Glucose Lvl) 240 70-99 [facility]2016-08-01 09:05:00 Test Item Value Reference Range Interpretation Comments Creatinine Lvl (test code = Creatinine 0.80 0.50-1.40 Lvl) [facility]2016-08-01 09:05:00 Test Item Value Reference Range Interpretation Comments BUN (test code = BUN) 20 7-22 [facility]2016-08-01 09:05:00 Test Item Value Reference Range Interpretation Comments eGFR (test code = eGFR) 73 [facility]2016-08-01 09:05:00 Test Item Value Reference Range Interpretation Comments Albumin Lvl (test code = Albumin Lvl) 2.8 3.5-5.0 [facility]2016-08-01 09:05:00 Test Item Value Reference Range Interpretation Comments Calcium Lvl (test code = Calcium Lvl) 10.5 8.5-10.5 [facility]2016-08-01 09:05:00 Test Item Value Reference Range Interpretation Comments Potassium Lvl (test code = Potassium 4.3 3.5-5.1 Lvl) [facility]2016-08-01 09:05:00 Test Item Value Reference Range Interpretation Comments Chloride Lvl (test code = Chloride Lvl) 107 95-109 [facility]2016-08-01 09:05:00 Test Item Value Reference Range Interpretation Comments Sodium Lvl (test code = Sodium Lvl) 143 135-145 [facility]2016-08-01 09:05:00 Test Item Value Reference Range Interpretation Comments AGAP (test code = AGAP) 10.3 10.0-20.0 [facility]anoAuiqdayCUBWELRZWX0802-43-41 09:05:00 Test Item Value Reference Range Interpretation Comments Lymphocytes # (test code = Lymphocytes 1.3 1.0-5.5 #) [facility]anoFgkqnslNBUJDFFAAP9062-48-51 09:05:00 Test Item Value Reference Range Interpretation Comments Segs-Bands # (test code = Segs-Bands #) 4.4 1.5-8.1 [facility]anoBmkmthgSKMOGEEROM5173-79-06 09:05:00 Test Item Value Reference Range Interpretation Comments Eosinophils # (test code 0.3 See_Comment [A utomated message] The = Eosinophils #) system whic h generated this result tra nsmitted reference range : <=0.5. The reference r leatha was not used to int erpret this result as normal/abnormal . [facility]anoAsyfhgpVIYROSZVTM3839-25-67 09:05:00 Test Item Value Reference Range Interpretation Comments Monocytes # (test code 0.6 See_Comment [Aut omated message] The = Monocytes #) system which generated this result tra nsmitted reference range : <=0.8. The reference r leatha was not used to int erpret this result as normal/abnormal . [facility]anoImttdxlDPMRGXWXPF8034-83-28 09:05:00 Test Item Value Reference Range Interpretation Comments Basophils (test code = 0.5 See_Comment [Aut omated message] The Basophils) system which ge nerated this result tra nsmitted reference range : <=1.0. The reference r leatha was not used to int erpret this result as normal/abnormal . [facility]anoNofvfxdKEGTTPGRSA2876-19-76 09:05:00 Test Item Value Reference Range Interpretation Comments Eosinophils (test code = 4.9 See_Comment [A utomated message] The Eosinophils) system which ge nerated this result tra nsmitted reference range : <=4.0. The reference r leatha was not used to int erpret this result as normal/abnormal . [facility] PlanoDzkbgrjGHTJGONKTW2752-33-66 09:05:00 Test Item Value Reference Range Interpretation Comments Monocytes (test code = Monocytes) 9.1 2.0-12.0 [facility]LkdpstrFJHOZPDYFV5948-91-33 09:05:00 Test Item Value Reference Range Interpretation Comments Lymphocytes (test code = Lymphocytes) 18.9 20.0-40.0 [facility]anoPaoarekXXHLOZAFQD0535-75-46 09:05:00 Test Item Value Reference Range Interpretation Comments Segs (test code = Segs) 66.6 45.0-75.0 [facility]anoOayjhgtTQLFGBOQJD1583-85-27 09:05:00 Test Item Value Reference Range Interpretation Comments MPV (test code = MPV) 9.4 7.4-10.4 [facility]anoWolxginQVBZXQADRL9419-63-73 09:05:00 Test Item Value Reference Range Interpretation Comments Platelet (test code = Platelet) 168 133-450 [facility]BgacyzwUGYEGWAYBS0556[facility]17-85 09:05:00 Test Item Value Reference Range Interpretation Comments RDW (test code = RDW) 13.4 11.5-14.5 [facility] HospitalCwbohklXDOARSTPXJ1662-57-97 09:05:00 Test Item Value Reference Range Interpretation Comments MCHC (test code = MCHC) 32.8 32.0-36.0 [facility] HospitalDhnkcchPIDWMBIEGB6413-67-74 09:05:00 Test Item Value Reference Range Interpretation Comments MCH (test code = MCH) 30.7 pg 27.0-31.0 [facility] HospitalReglkjoALKSCEPCAP4829-28-15 09:05:00 Test Item Value Reference Range Interpretation Comments MCV (test code = MCV) 93.6 80.0-98.0 [facility] HospitalVpeiqcoAHBLQTZNXL2403-63-20 09:05:00 Test Item Value Reference Range Interpretation Comments WBC (test code = WBC) 6.6 3.7-10.4 [facility]anoZvzeqtqZWGTABGNZE6821-61-67 09:05:00 Test Item Value Reference Range Interpretation Comments Hct (test code = Hct) 41.0 36.0-48.0 [facility] HospitalJiaowkrMCAZIHMZXX6138-68-14 09:05:00 Test Item Value Reference Range Interpretation Comments Hgb (test code = Hgb) 13.4 12.0-16.0 [facility] HospitalYbrplovBNNFXWDLZI8207-61-73 09:05:00 Test Item Value Reference Range Interpretation Comments RBC (test code = RBC) 4.38 4.20-5.40 [facility] SDPBDIYSP6600-23-53 09:05:00 Test Item Value Reference Range Interpretation Comments Hgb A1C (test code = Hgb A1C) 10.3 [facility]17[facility]79[facility]50 09:17:00 Test Item Value Reference Range Interpretation Comments eGFR (test code = eGFR) 81 [facility] AZBLD9652-17-92 09:17:00 Test Item Value Reference Range Interpretation Comments Creatinine Lvl (test code = Creatinine 0.73 0.50-1.40 Lvl) [facility] GBFZF2145-19-09 09:17:00 Test Item Value Reference Range Interpretation Comments AST (test code = AST) 7 See_Comment [Auto mated message] The system which ge nerated this result transmit juan reference range : <=37. The reference range was not used to interpr et this result as lashonda l/abnormal. [facility]2016-07-30 09:17:00 Test Item Value Reference Range Interpretation Comments Total Protein (test code = Total 5.0 6.4-8.4 Protein) [facility]2016-07-30 09:17:00 Test Item Value Reference Range Interpretation Comments Alk Phos (test code = Alk Phos) 73 39-136 [facility]2016-07-30 09:17:00 Test Item Value Reference Range Interpretation Comments ALT (test code = ALT) 29 See_Comment [Auto mated message] The system which ge nerated this result transmit juan reference range : <=65. The reference range was not used to interpr et this result as lashonda l/abnormal. [facility]2016-07-30 09:17:00 Test Item Value Reference Range Interpretation Comments Bili Total (test code = Bili Total) 0.7 0.2-1.3 [facility]2016-07-30 09:17:00 Test Item Value Reference Range Interpretation Comments Albumin Lvl (test code = Albumin Lvl) 2.7 3.5-5.0 [facility]2016-07-30 09:17:00 Test Item Value Reference Range Interpretation Comments AGAP (test code = AGAP) 10.9 10.0-20.0 [facility]2016-07-30 09:17:00 Test Item Value Reference Range Interpretation Comments Calcium Lvl (test code = Calcium Lvl) 10.0 8.5-10.5 [facility]2016-07-30 09:17:00 Test Item Value Reference Range Interpretation Comments Glucose Lvl (test code = Glucose Lvl) 208 70-99 [facility]2016-07-30 09:17:00 Test Item Value Reference Range Interpretation Comments Potassium Lvl (test code = Potassium 3.9 3.5-5.1 Lvl) [facility]2016-07-30 09:17:00 Test Item Value Reference Range Interpretation Comments BUN (test code = BUN) 20 7-22 [facility]2016-07-30 09:17:00 Test Item Value Reference Range Interpretation Comments Sodium Lvl (test code = Sodium Lvl) 145 135-145 [facility]2016-07-30 09:17:00 Test Item Value Reference Range Interpretation Comments Chloride Lvl (test code = Chloride Lvl) 109 95-109 [facility]2016-07-30 09:17:00 Test Item Value Reference Range Interpretation Comments CO2 (test code = CO2) 29 24-32 [facility]2016-07-30 09:17:00 Test Item Value Reference Range Interpretation Comments B/C Ratio (test code = B/C Ratio) 27 6-25 [facility]2016-07-30 09:17:00 Test Item Value Reference Range Interpretation Comments A/G Ratio (test code = A/G Ratio) 1.2 0.7-1.6 [facility]2016-07-30 09:17:00 Test Item Value Reference Range Interpretation Comments Globulin (test code = Globulin) 2.3 2.0-4.0 [facility]anoRmytwyaNOQGCKDMAB5802-17-57 09:17:00 Test Item Value Reference Range Interpretation Comments Monocytes (test code = Monocytes) 11.7 2.0-12.0 [facility]anoRpvvulxRJXIBMSRYH9002-27-87 09:17:00 Test Item Value Reference Range Interpretation Comments Segs-Bands # (test code = Segs-Bands #) 4.9 1.5-8.1 [facility]anoZapgevkGOKVRFTDWV4913-00-27 09:17:00 Test Item Value Reference Range Interpretation Comments Basophils (test code = 0.4 See_Comment [Aut omated message] The Basophils) system which ge nerated this result tra nsmitted reference range : <=1.0. The reference r leatha was not used to int erpret this result as normal/abnormal . [facility]anoMceksxaPLJFOKNZQY6597-73-70 09:17:00 Test Item Value Reference Range Interpretation Comments Lymphocytes # (test code = Lymphocytes 1.3 1.0-5.5 #) [facility]anoAobnzihFXXJGZZUWA7160-08-84 09:17:00 Test Item Value Reference Range Interpretation Comments Macrocyte (test code = 1+ *ABN*(01/15/16 Macrocyte) 4:17 AM) [facility]anoOpmzrycVXJYSZKFPC1612-65-76 09:17:00 Test Item Value Reference Range Interpretation Comments Segs (test code = Segs) 67.7 45.0-75.0 [facility]anoValgfhuVZLELTGAUG7598-55-54 09:17:00 Test Item Value Reference Range Interpretation Comments Lymphocytes (test code = Lymphocytes) 17.4 20.0-40.0 [facility]anoNwxbqhuLZTNJUYMHJ7196-93-39 09:17:00 Test Item Value Reference Range Interpretation Comments Eosinophils (test code = 2.8 See_Comment [A utomated message] The Eosinophils) system which ge nerated this result tra nsmitted reference range : <=4.0. The reference r leatha was not used to int erpret this result as normal/abnormal . [facility]anoNbguujkPIIXBBFDFS9149-50-88 09:17:00 Test Item Value Reference Range Interpretation Comments Basophils # (test code 0.0 See_Comment [Aut omated message] The = Basophils #) system which generated this result tra nsmitted reference range : <=0.2. The reference r leatha was not used to int erpret this result as normal/abnormal . [facility]anoXuivigrFPMFBUKMWC1245-82-56 09:17:00 Test Item Value Reference Range Interpretation Comments Eosinophils # (test code 0.2 See_Comment [A utomated message] The = Eosinophils #) system whic h generated this result tra nsmitted reference range : <=0.5. The reference r leatha was not used to int erpret this result as normal/abnormal . [facility]anoSluezpqETFRIOSTOM9496-47-51 09:17:00 Test Item Value Reference Range Interpretation Comments Monocytes # (test code 0.9 See_Comment [Aut omated message] The = Monocytes #) system which generated this result tra nsmitted reference range : <=0.8. The reference r leatha was not used to int erpret this result as normal/abnormal . [facility]anoGsvxhbgFTLLSHWWOL4370-25-62 09:17:00 Test Item Value Reference Range Interpretation Comments Platelet (test code = Platelet) 149 133-450 [facility]anoHsjoeexNXPWLRWFVJ9672-83-62 09:17:00 Test Item Value Reference Range Interpretation Comments WBC (test code = WBC) 7.3 3.7-10.4 [facility]anoFooocecQSNSOOKIVU4780-01-31 09:17:00 Test Item Value Reference Range Interpretation Comments Hct (test code = Hct) 39.8 36.0-48.0 [facility]anoVxlneefMPHCOPGSLX7514-04-80 09:17:00 Test Item Value Reference Range Interpretation Comments Hgb (test code = Hgb) 13.0 12.0-16.0 [facility]anoQttglsaCUSHZTYDFT4181-60-02 09:17:00 Test Item Value Reference Range Interpretation Comments RBC (test code = RBC) 4.23 4.20-5.40 [facility]anoXrokjcrLPEMZOJMBW8081-62-27 09:17:00 Test Item Value Reference Range Interpretation Comments MCHC (test code = MCHC) 32.8 32.0-36.0 [facility]anoAapfttqBDCJETDTET0962-10-31 09:17:00 Test Item Value Reference Range Interpretation Comments MCV (test code = MCV) 94.0 80.0-98.0 [facility]anoFlorcqkNOHXMZEXQX8892-67-70 09:17:00 Test Item Value Reference Range Interpretation Comments MCH (test code = MCH) 30.8 pg 27.0-31.0 [facility]anoZaifcyoUGMWASEUDU3130-02-88 09:17:00 Test Item Value Reference Range Interpretation Comments RDW (test code = RDW) 13.5 11.5-14.5 [facility]anoEqymlkkZWACVHLWQO3624-14-89 09:17:00 Test Item Value Reference Range Interpretation Comments MPV (test code = MPV) 9.6 7.4-10.4 [facility]2016-07-30 09:17:00 Test Item Value Reference Range Interpretation Comments eGFR (test code = eGFR) 81 [facility]2016-07-30 09:17:00 Test Item Value Reference Range Interpretation Comments Creatinine Lvl (test code = Creatinine 0.73 0.50-1.40 Lvl) [facility]2016-07-30 09:17:00 Test Item Value Reference Range Interpretation Comments AST (test code = AST) 7 See_Comment [Auto mated message] The system which ge nerated this result transmit juan reference range : <=37. The reference range was not used to interpr et this result as lashonda l/abnormal. [facility]2016-07-30 09:17:00 Test Item Value Reference Range Interpretation Comments Total Protein (test code = Total 5.0 6.4-8.4 Protein) [facility]2016-07-30 09:17:00 Test Item Value Reference Range Interpretation Comments Alk Phos (test code = Alk Phos) 73 39-136 [facility]2016-07-30 09:17:00 Test Item Value Reference Range Interpretation Comments ALT (test code = ALT) 29 See_Comment [Auto mated message] The system which ge nerated this result transmit juan reference range : <=65. The reference range was not used to interpr et this result as lashonda l/abnormal. [facility]2016-07-30 09:17:00 Test Item Value Reference Range Interpretation Comments Bili Total (test code = Bili Total) 0.7 0.2-1.3 [facility]2016-07-30 09:17:00 Test Item Value Reference Range Interpretation Comments Albumin Lvl (test code = Albumin Lvl) 2.7 3.5-5.0 [facility]2016-07-30 09:17:00 Test Item Value Reference Range Interpretation Comments AGAP (test code = AGAP) 10.9 10.0-20.0 [facility]2016-07-30 09:17:00 Test Item Value Reference Range Interpretation Comments Calcium Lvl (test code = Calcium Lvl) 10.0 8.5-10.5 [facility]2016-07-30 09:17:00 Test Item Value Reference Range Interpretation Comments Glucose Lvl (test code = Glucose Lvl) 208 70-99 [facility]2016-07-30 09:17:00 Test Item Value Reference Range Interpretation Comments Potassium Lvl (test code = Potassium 3.9 3.5-5.1 Lvl) [facility]2016-07-30 09:17:00 Test Item Value Reference Range Interpretation Comments BUN (test code = BUN) 20 7-22 [facility]2016-07-30 09:17:00 Test Item Value Reference Range Interpretation Comments Sodium Lvl (test code = Sodium Lvl) 145 135-145 [facility]2016-07-30 09:17:00 Test Item Value Reference Range Interpretation Comments Chloride Lvl (test code = Chloride Lvl) 109 95-109 [facility]2016-07-30 09:17:00 Test Item Value Reference Range Interpretation Comments CO2 (test code = CO2) 29 24-32 [facility]2016-07-30 09:17:00 Test Item Value Reference Range Interpretation Comments B/C Ratio (test code = B/C Ratio) 27 6-25 [facility]2016-07-30 09:17:00 Test Item Value Reference Range Interpretation Comments A/G Ratio (test code = A/G Ratio) 1.2 0.7-1.6 [facility]2016-07-30 09:17:00 Test Item Value Reference Range Interpretation Comments Globulin (test code = Globulin) 2.3 2.0-4.0 [facility]anoRpcgzxjNNHDGAKGMU8397-33-64 09:17:00 Test Item Value Reference Range Interpretation Comments Monocytes (test code = Monocytes) 11.7 2.0-12.0 [facility]anoCpsdociZRTTNZJQFV9065-29-55 09:17:00 Test Item Value Reference Range Interpretation Comments Segs-Bands # (test code = Segs-Bands #) 4.9 1.5-8.1 [facility]anoYvbeprbAEFFUYZZPG2116-00-67 09:17:00 Test Item Value Reference Range Interpretation Comments Basophils (test code = 0.4 See_Comment [Aut omated message] The Basophils) system which ge nerated this result tra nsmitted reference range : <=1.0. The reference r leatha was not used to int erpret this result as normal/abnormal . [facility]anoOhcygqnZTLWHOOEHH4214-20-91 09:17:00 Test Item Value Reference Range Interpretation Comments Lymphocytes # (test code = Lymphocytes 1.3 1.0-5.5 #) [facility]anoOwrebqiROFDJLCHSN6338-90-14 09:17:00 Test Item Value Reference Range Interpretation Comments Macrocyte (test code = 1+ *ABN*(01/15/16 Macrocyte) 4:17 AM) [facility]anoHxxdikfYJOQDPTOPN8473-73-28 09:17:00 Test Item Value Reference Range Interpretation Comments Segs (test code = Segs) 67.7 45.0-75.0 [facility]anoNbnbzsmDPCZMPHBNW1331-64-92 09:17:00 Test Item Value Reference Range Interpretation Comments Lymphocytes (test code = Lymphocytes) 17.4 20.0-40.0 [facility]anoGuyqliqCYQLKCDWZM5531-66-33 09:17:00 Test Item Value Reference Range Interpretation Comments Eosinophils (test code = 2.8 See_Comment [A utomated message] The Eosinophils) system which ge nerated this result tra nsmitted reference range : <=4.0. The reference r leatha was not used to int erpret this result as normal/abnormal . [facility]anoZxcegmgXIKYRSXEBA8344-79-22 09:17:00 Test Item Value Reference Range Interpretation Comments Basophils # (test code 0.0 See_Comment [Aut omated message] The = Basophils #) system which generated this result tra nsmitted reference range : <=0.2. The reference r leatha was not used to int erpret this result as normal/abnormal . [facility]anoWgieifhCBBEPQWYLV1079-65-44 09:17:00 Test Item Value Reference Range Interpretation Comments Eosinophils # (test code 0.2 See_Comment [A utomated message] The = Eosinophils #) system whic h generated this result tra nsmitted reference range : <=0.5. The reference r leatha was not used to int erpret this result as normal/abnormal . [facility]anoKpeebxoDABNRBZGSE5251-16-75 09:17:00 Test Item Value Reference Range Interpretation Comments Monocytes # (test code 0.9 See_Comment [Aut omated message] The = Monocytes #) system which generated this result tra nsmitted reference range : <=0.8. The reference r leatha was not used to int erpret this result as normal/abnormal . [facility]anoOrtqyymQOMGEMRCAE3234-05-13 09:17:00 Test Item Value Reference Range Interpretation Comments Platelet (test code = Platelet) 149 133-450 [facility]anoUtxdxmxEPAJTDKXRP2798-75-31 09:17:00 Test Item Value Reference Range Interpretation Comments WBC (test code = WBC) 7.3 3.7-10.4 [facility]anoIoszjqsJFHUYYZGAY3915-37-03 09:17:00 Test Item Value Reference Range Interpretation Comments Hct (test code = Hct) 39.8 36.0-48.0 [facility]anoRmimtcrNCQVDYLIRK2391-58-10 09:17:00 Test Item Value Reference Range Interpretation Comments Hgb (test code = Hgb) 13.0 12.0-16.0 [facility]anoDgukzrtXSWOQFQJQL5431-59-42 09:17:00 Test Item Value Reference Range Interpretation Comments RBC (test code = RBC) 4.23 4.20-5.40 [facility]anoYwyoaikJILNPWZRPH3603-61-62 09:17:00 Test Item Value Reference Range Interpretation Comments MCHC (test code = MCHC) 32.8 32.0-36.0 [facility]anoOpgxbnzSRZVNGZMPW5264-70-09 09:17:00 Test Item Value Reference Range Interpretation Comments MCV (test code = MCV) 94.0 80.0-98.0 [facility]anoFndlecbGELEFCDSUV9288-13-45 09:17:00 Test Item Value Reference Range Interpretation Comments MCH (test code = MCH) 30.8 pg 27.0-31.0 [facility]anoVxwnpgeRGTZNIASOK2677-46-39 09:17:00 Test Item Value Reference Range Interpretation Comments RDW (test code = RDW) 13.5 11.5-14.5 [facility]anoZohhopeOYXQFYHIOA6453-01-34 09:17:00 Test Item Value Reference Range Interpretation Comments MPV (test code = MPV) 9.6 7.4-10.4 [facility]2016-07-30 09:17:00 Test Item Value Reference Range Interpretation Comments eGFR (test code = eGFR) 81 [facility]2016-07-30 09:17:00 Test Item Value Reference Range Interpretation Comments Creatinine Lvl (test code = Creatinine 0.73 0.50-1.40 Lvl) [facility]2016-07-30 09:17:00 Test Item Value Reference Range Interpretation Comments AST (test code = AST) 7 See_Comment [Auto mated message] The system which ge nerated this result transmit juan reference range : <=37. The reference range was not used to interpr et this result as lashonda l/abnormal. [facility]2016-07-30 09:17:00 Test Item Value Reference Range Interpretation Comments Total Protein (test code = Total 5.0 6.4-8.4 Protein) [facility]2016-07-30 09:17:00 Test Item Value Reference Range Interpretation Comments Alk Phos (test code = Alk Phos) 73 39-136 [facility]2016-07-30 09:17:00 Test Item Value Reference Range Interpretation Comments ALT (test code = ALT) 29 See_Comment [Auto mated message] The system which ge nerated this result transmit juan reference range : <=65. The reference range was not used to interpr et this result as lashonda l/abnormal. [facility]2016-07-30 09:17:00 Test Item Value Reference Range Interpretation Comments Bili Total (test code = Bili Total) 0.7 0.2-1.3 [facility]2016-07-30 09:17:00 Test Item Value Reference Range Interpretation Comments Albumin Lvl (test code = Albumin Lvl) 2.7 3.5-5.0 [facility]2016-07-30 09:17:00 Test Item Value Reference Range Interpretation Comments AGAP (test code = AGAP) 10.9 10.0-20.0 [facility]2016-07-30 09:17:00 Test Item Value Reference Range Interpretation Comments Calcium Lvl (test code = Calcium Lvl) 10.0 8.5-10.5 [facility]2016-07-30 09:17:00 Test Item Value Reference Range Interpretation Comments Glucose Lvl (test code = Glucose Lvl) 208 70-99 [facility]2016-07-30 09:17:00 Test Item Value Reference Range Interpretation Comments Potassium Lvl (test code = Potassium 3.9 3.5-5.1 Lvl) [facility]2016-07-30 09:17:00 Test Item Value Reference Range Interpretation Comments BUN (test code = BUN) 20 7-22 [facility]2016-07-30 09:17:00 Test Item Value Reference Range Interpretation Comments Sodium Lvl (test code = Sodium Lvl) 145 135-145 [facility]2016-07-30 09:17:00 Test Item Value Reference Range Interpretation Comments Chloride Lvl (test code = Chloride Lvl) 109 95-109 [facility]2016-07-30 09:17:00 Test Item Value Reference Range Interpretation Comments CO2 (test code = CO2) 29 24-32 [facility]2016-07-30 09:17:00 Test Item Value Reference Range Interpretation Comments B/C Ratio (test code = B/C Ratio) 27 6-25 [facility]2016-07-30 09:17:00 Test Item Value Reference Range Interpretation Comments A/G Ratio (test code = A/G Ratio) 1.2 0.7-1.6 [facility]2016-07-30 09:17:00 Test Item Value Reference Range Interpretation Comments Globulin (test code = Globulin) 2.3 2.0-4.0 [facility]anoOjbveojBOEBISIUPM9753-40-19 09:17:00 Test Item Value Reference Range Interpretation Comments Monocytes (test code = Monocytes) 11.7 2.0-12.0 [facility]anoExvxswsNOOEFTNBQL9840-52-79 09:17:00 Test Item Value Reference Range Interpretation Comments Segs-Bands # (test code = Segs-Bands #) 4.9 1.5-8.1 [facility]anoUyrmrwhRGAEZITEJF0760-82-36 09:17:00 Test Item Value Reference Range Interpretation Comments Basophils (test code = 0.4 See_Comment [Aut omated message] The Basophils) system which ge nerated this result tra nsmitted reference range : <=1.0. The reference r leatha was not used to int erpret this result as normal/abnormal . [facility]anoIacvrwhGPCTWBIHHS7349-60-63 09:17:00 Test Item Value Reference Range Interpretation Comments Lymphocytes # (test code = Lymphocytes 1.3 1.0-5.5 #) [facility]anoEidjeadPYCIHTVCQO8584-15-27 09:17:00 Test Item Value Reference Range Interpretation Comments Macrocyte (test code = 1+ *ABN*(01/15/16 Macrocyte) 4:17 AM) [facility]anoEjxiymvCHSLCYLAOV9435-26-74 09:17:00 Test Item Value Reference Range Interpretation Comments Segs (test code = Segs) 67.7 45.0-75.0 [facility]anoDmezktlVRVULCRKYA8084-28-24 09:17:00 Test Item Value Reference Range Interpretation Comments Lymphocytes (test code = Lymphocytes) 17.4 20.0-40.0 [facility]anoJlymsjtDBESDGBFCW6989-61-90 09:17:00 Test Item Value Reference Range Interpretation Comments Eosinophils (test code = 2.8 See_Comment [A utomated message] The Eosinophils) system which ge nerated this result tra nsmitted reference range : <=4.0. The reference r leatha was not used to int erpret this result as normal/abnormal . [facility]anoMvexsnzPNFUFVVFBD3083-59-13 09:17:00 Test Item Value Reference Range Interpretation Comments Basophils # (test code 0.0 See_Comment [Aut omated message] The = Basophils #) system which generated this result tra nsmitted reference range : <=0.2. The reference r leatha was not used to int erpret this result as normal/abnormal . [facility]anoVnozwxmSZVRRZTTRY0965-49-29 09:17:00 Test Item Value Reference Range Interpretation Comments Eosinophils # (test code 0.2 See_Comment [A utomated message] The = Eosinophils #) system whic h generated this result tra nsmitted reference range : <=0.5. The reference r leatha was not used to int erpret this result as normal/abnormal . [facility]anoPfimmakLOROHAEWQU0893-14-95 09:17:00 Test Item Value Reference Range Interpretation Comments Monocytes # (test code 0.9 See_Comment [Aut omated message] The = Monocytes #) system which generated this result tra nsmitted reference range : <=0.8. The reference r leatha was not used to int erpret this result as normal/abnormal . [facility]anoXxlwmxjJJCGNWXQBM4000-66-73 09:17:00 Test Item Value Reference Range Interpretation Comments Platelet (test code = Platelet) 149 133-450 [facility]anoPgmbxlhXJUHTCHVSN1658-52-70 09:17:00 Test Item Value Reference Range Interpretation Comments WBC (test code = WBC) 7.3 3.7-10.4 [facility]anoQxemkvxWKIXTFQXQV7182-03-25 09:17:00 Test Item Value Reference Range Interpretation Comments Hct (test code = Hct) 39.8 36.0-48.0 [facility]TvtlafdLUKQUZPZJB2355-72-00 09:17:00 Test Item Value Reference Range Interpretation Comments Hgb (test code = Hgb) 13.0 12.0-16.0 [facility]XawnwnpAMLKFBXRBI5058-50-40 09:17:00 Test Item Value Reference Range Interpretation Comments RBC (test code = RBC) 4.23 4.20-5.40 [facility]XhfbuyfANTKDTKPJF1298-96-25 09:17:00 Test Item Value Reference Range Interpretation Comments MCHC (test code = MCHC) 32.8 32.0-36.0 [facility]anoIkvmxngIXFMRGOEEY9261-57-14 09:17:00 Test Item Value Reference Range Interpretation Comments MCV (test code = MCV) 94.0 80.0-98.0 [facility]XtfreruLXRFFHTSBT5186-75-70 09:17:00 Test Item Value Reference Range Interpretation Comments MCH (test code = MCH) 30.8 pg 27.0-31.0 [facility]anoOwsuyyiWHAKPVUIYJ4387-33-05 09:17:00 Test Item Value Reference Range Interpretation Comments RDW (test code = RDW) 13.5 11.5-14.5 [facility]anoQpcrancJYYNIEMFPX5506-27-46 09:17:00 Test Item Value Reference Range Interpretation Comments MPV (test code = MPV) 9.6 7.4-10.4 [facility]2016-07-30 09:17:00 Test Item Value Reference Range Interpretation Comments eGFR (test code = eGFR) 81 [facility]2016-07-30 09:17:00 Test Item Value Reference Range Interpretation Comments Creatinine Lvl (test code = Creatinine 0.73 0.50-1.40 Lvl) [facility]2016-07-30 09:17:00 Test Item Value Reference Range Interpretation Comments AST (test code = AST) 7 See_Comment [Auto mated message] The system which ge nerated this result transmit juan reference range : <=37. The reference range was not used to interpr et this result as lashonda l/abnormal. [facility]2016-07-30 09:17:00 Test Item Value Reference Range Interpretation Comments Total Protein (test code = Total 5.0 6.4-8.4 Protein) [facility]2016-07-30 09:17:00 Test Item Value Reference Range Interpretation Comments Alk Phos (test code = Alk Phos) 73 39-136 [facility]2016-07-30 09:17:00 Test Item Value Reference Range Interpretation Comments ALT (test code = ALT) 29 See_Comment [Auto mated message] The system which ge nerated this result transmit juan reference range : <=65. The reference range was not used to interpr et this result as lashonda l/abnormal. [facility]2016-07-30 09:17:00 Test Item Value Reference Range Interpretation Comments Bili Total (test code = Bili Total) 0.7 0.2-1.3 [facility]2016-07-30 09:17:00 Test Item Value Reference Range Interpretation Comments Albumin Lvl (test code = Albumin Lvl) 2.7 3.5-5.0 [facility]2016-07-30 09:17:00 Test Item Value Reference Range Interpretation Comments AGAP (test code = AGAP) 10.9 10.0-20.0 [facility]2016-07-30 09:17:00 Test Item Value Reference Range Interpretation Comments Calcium Lvl (test code = Calcium Lvl) 10.0 8.5-10.5 [facility]2016-07-30 09:17:00 Test Item Value Reference Range Interpretation Comments Glucose Lvl (test code = Glucose Lvl) 208 70-99 [facility]2016-07-30 09:17:00 Test Item Value Reference Range Interpretation Comments Potassium Lvl (test code = Potassium 3.9 3.5-5.1 Lvl) [facility]2016-07-30 09:17:00 Test Item Value Reference Range Interpretation Comments BUN (test code = BUN) 20 7-22 [facility]2016-07-30 09:17:00 Test Item Value Reference Range Interpretation Comments Sodium Lvl (test code = Sodium Lvl) 145 135-145 [facility]2016-07-30 09:17:00 Test Item Value Reference Range Interpretation Comments Chloride Lvl (test code = Chloride Lvl) 109 95-109 [facility]2016-07-30 09:17:00 Test Item Value Reference Range Interpretation Comments CO2 (test code = CO2) 29 24-32 [facility]2016-07-30 09:17:00 Test Item Value Reference Range Interpretation Comments B/C Ratio (test code = B/C Ratio) 27 6-25 [facility]2016-07-30 09:17:00 Test Item Value Reference Range Interpretation Comments A/G Ratio (test code = A/G Ratio) 1.2 0.7-1.6 [facility]2016-07-30 09:17:00 Test Item Value Reference Range Interpretation Comments Globulin (test code = Globulin) 2.3 2.0-4.0 [facility]anoRefoixbKWRZSXYRDY7418-81-20 09:17:00 Test Item Value Reference Range Interpretation Comments Monocytes (test code = Monocytes) 11.7 2.0-12.0 [facility]anoUiaapyxETXVXJRKSO6030-77-16 09:17:00 Test Item Value Reference Range Interpretation Comments Segs-Bands # (test code = Segs-Bands #) 4.9 1.5-8.1 [facility]anoTxmmjnlUPQSTRASWE1352-04-54 09:17:00 Test Item Value Reference Range Interpretation Comments Basophils (test code = 0.4 See_Comment [Aut omated message] The Basophils) system which ge nerated this result tra nsmitted reference range : <=1.0. The reference r leatha was not used to int erpret this result as normal/abnormal . [facility]anoAjgfnraDUEHPMXNKQ6653-64-17 09:17:00 Test Item Value Reference Range Interpretation Comments Lymphocytes # (test code = Lymphocytes 1.3 1.0-5.5 #) [facility]anoQwsnptiTBQIXUOAIT1042-81-15 09:17:00 Test Item Value Reference Range Interpretation Comments Macrocyte (test code = 1+ *ABN*(01/15/16 Macrocyte) 4:17 AM) [facility]anoHfsfwytYZCYJKUATW1978-17-28 09:17:00 Test Item Value Reference Range Interpretation Comments Segs (test code = Segs) 67.7 45.0-75.0 [facility]anoOepdmfzZDVAGQTCTL9807-39-61 09:17:00 Test Item Value Reference Range Interpretation Comments Lymphocytes (test code = Lymphocytes) 17.4 20.0-40.0 [facility]anoKjlcojeZFXLVNBGCF8476-83-25 09:17:00 Test Item Value Reference Range Interpretation Comments Eosinophils (test code = 2.8 See_Comment [A utomated message] The Eosinophils) system which ge nerated this result tra nsmitted reference range : <=4.0. The reference r leatha was not used to int erpret this result as normal/abnormal . [facility]anoLfoudfzVAZSOJQAHT7102-61-69 09:17:00 Test Item Value Reference Range Interpretation Comments Basophils # (test code 0.0 See_Comment [Aut omated message] The = Basophils #) system which generated this result tra nsmitted reference range : <=0.2. The reference r leatha was not used to int erpret this result as normal/abnormal . [facility]anoNpyfsflKSYJZEVEBV0325-00-87 09:17:00 Test Item Value Reference Range Interpretation Comments Eosinophils # (test code 0.2 See_Comment [A utomated message] The = Eosinophils #) system whic h generated this result tra nsmitted reference range : <=0.5. The reference r leatha was not used to int erpret this result as normal/abnormal . [facility]anoFoflkgeSNNYCRESXG5467-48-23 09:17:00 Test Item Value Reference Range Interpretation Comments Monocytes # (test code 0.9 See_Comment [Aut omated message] The = Monocytes #) system which generated this result tra nsmitted reference range : <=0.8. The reference r leatha was not used to int erpret this result as normal/abnormal . [facility]anoZrlzekgEPERGSNJDX0040-28-96 09:17:00 Test Item Value Reference Range Interpretation Comments Platelet (test code = Platelet) 149 133-450 [facility]anoZluthxdABIXWMYLVQ0109-79-04 09:17:00 Test Item Value Reference Range Interpretation Comments WBC (test code = WBC) 7.3 3.7-10.4 [facility]anoHexkmxyYNMPREEPBO5817-10-95 09:17:00 Test Item Value Reference Range Interpretation Comments Hct (test code = Hct) 39.8 36.0-48.0 [facility]anoSjavbjaQXPBPIIZVR1364-25-55 09:17:00 Test Item Value Reference Range Interpretation Comments Hgb (test code = Hgb) 13.0 12.0-16.0 [facility]anoLaywcgzUZKRRWSZDF9363-94-30 09:17:00 Test Item Value Reference Range Interpretation Comments RBC (test code = RBC) 4.23 4.20-5.40 [facility]anoXomuavwOPWLNNINWS9434-79-26 09:17:00 Test Item Value Reference Range Interpretation Comments MCHC (test code = MCHC) 32.8 32.0-36.0 [facility]anoAnphaqeXSXCEZJKLV9213-02-88 09:17:00 Test Item Value Reference Range Interpretation Comments MCV (test code = MCV) 94.0 80.0-98.0 [facility]anoSpiaizvGWMXQWRXWW9889-64-56 09:17:00 Test Item Value Reference Range Interpretation Comments MCH (test code = MCH) 30.8 pg 27.0-31.0 [facility]anoXvrmmgdWFFURAQBSC8269-63-48 09:17:00 Test Item Value Reference Range Interpretation Comments RDW (test code = RDW) 13.5 11.5-14.5 [facility]anoRurcnrfFAULKRWKVO7966-71-76 09:17:00 Test Item Value Reference Range Interpretation Comments MPV (test code = MPV) 9.6 7.4-10.4 [facility]2016-07-30 09:17:00 Test Item Value Reference Range Interpretation Comments eGFR (test code = eGFR) 81 [facility]2016-07-30 09:17:00 Test Item Value Reference Range Interpretation Comments Creatinine Lvl (test code = Creatinine 0.73 0.50-1.40 Lvl) [facility]2016-07-30 09:17:00 Test Item Value Reference Range Interpretation Comments AST (test code = AST) 7 See_Comment [Auto mated message] The system which ge nerated this result transmit juan reference range : <=37. The reference range was not used to interpr et this result as lashonda l/abnormal. [facility]2016-07-30 09:17:00 Test Item Value Reference Range Interpretation Comments Total Protein (test code = Total 5.0 6.4-8.4 Protein) [facility]2016-07-30 09:17:00 Test Item Value Reference Range Interpretation Comments Alk Phos (test code = Alk Phos) 73 39-136 [facility]2016-07-30 09:17:00 Test Item Value Reference Range Interpretation Comments ALT (test code = ALT) 29 See_Comment [Auto mated message] The system which ge nerated this result transmit juan reference range : <=65. The reference range was not used to interpr et this result as lashonda l/abnormal. [facility]2016-07-30 09:17:00 Test Item Value Reference Range Interpretation Comments Bili Total (test code = Bili Total) 0.7 0.2-1.3 [facility]2016-07-30 09:17:00 Test Item Value Reference Range Interpretation Comments Albumin Lvl (test code = Albumin Lvl) 2.7 3.5-5.0 [facility]2016-07-30 09:17:00 Test Item Value Reference Range Interpretation Comments AGAP (test code = AGAP) 10.9 10.0-20.0 [facility]2016-07-30 09:17:00 Test Item Value Reference Range Interpretation Comments Calcium Lvl (test code = Calcium Lvl) 10.0 8.5-10.5 [facility]2016-07-30 09:17:00 Test Item Value Reference Range Interpretation Comments Glucose Lvl (test code = Glucose Lvl) 208 70-99 [facility]2016-07-30 09:17:00 Test Item Value Reference Range Interpretation Comments Potassium Lvl (test code = Potassium 3.9 3.5-5.1 Lvl) [facility]2016-07-30 09:17:00 Test Item Value Reference Range Interpretation Comments BUN (test code = BUN) 20 7-22 [facility]2016-07-30 09:17:00 Test Item Value Reference Range Interpretation Comments Sodium Lvl (test code = Sodium Lvl) 145 135-145 [facility]2016-07-30 09:17:00 Test Item Value Reference Range Interpretation Comments Chloride Lvl (test code = Chloride Lvl) 109 95-109 [facility]2016-07-30 09:17:00 Test Item Value Reference Range Interpretation Comments CO2 (test code = CO2) 29 24-32 [facility]2016-07-30 09:17:00 Test Item Value Reference Range Interpretation Comments B/C Ratio (test code = B/C Ratio) 27 6-25 [facility]2016-07-30 09:17:00 Test Item Value Reference Range Interpretation Comments A/G Ratio (test code = A/G Ratio) 1.2 0.7-1.6 [facility]2016-07-30 09:17:00 Test Item Value Reference Range Interpretation Comments Globulin (test code = Globulin) 2.3 2.0-4.0 [facility]anoCmlgjwsDUEUCCJHWL9710-88-09 09:17:00 Test Item Value Reference Range Interpretation Comments Monocytes (test code = Monocytes) 11.7 2.0-12.0 [facility]anoZoaafawJIQNGKNDTB9540-03-94 09:17:00 Test Item Value Reference Range Interpretation Comments Segs-Bands # (test code = Segs-Bands #) 4.9 1.5-8.1 [facility]anoTtuxudxRKNGXLKPPN5430-09-75 09:17:00 Test Item Value Reference Range Interpretation Comments Basophils (test code = 0.4 See_Comment [Aut omated message] The Basophils) system which ge nerated this result tra nsmitted reference range : <=1.0. The reference r leatha was not used to int erpret this result as normal/abnormal . [facility]anoGrekzekUGFDUOOJHZ3555-86-77 09:17:00 Test Item Value Reference Range Interpretation Comments Lymphocytes # (test code = Lymphocytes 1.3 1.0-5.5 #) [facility]anoSspvjndQFXBZXLHRS7868-84-20 09:17:00 Test Item Value Reference Range Interpretation Comments Macrocyte (test code = 1+ *ABN*(01/15/16 Macrocyte) 4:17 AM) [facility]anoPodhbkwGDPNTTOSBF0029-22-52 09:17:00 Test Item Value Reference Range Interpretation Comments Segs (test code = Segs) 67.7 45.0-75.0 [facility]anoYsyootsLGXEXYEXGX2763-36-09 09:17:00 Test Item Value Reference Range Interpretation Comments Lymphocytes (test code = Lymphocytes) 17.4 20.0-40.0 [facility]anoYyfzjujSTFQMKTXXW2339-77-52 09:17:00 Test Item Value Reference Range Interpretation Comments Eosinophils (test code = 2.8 See_Comment [A utomated message] The Eosinophils) system which ge nerated this result tra nsmitted reference range : <=4.0. The reference r leatha was not used to int erpret this result as normal/abnormal . [facility]anoGxnsgvoBXVIHCVGRM0869-19-80 09:17:00 Test Item Value Reference Range Interpretation Comments Basophils # (test code 0.0 See_Comment [Aut omated message] The = Basophils #) system which generated this result tra nsmitted reference range : <=0.2. The reference r leatha was not used to int erpret this result as normal/abnormal . [facility]anoDemxehbFFYSRGJDCT4784-05-45 09:17:00 Test Item Value Reference Range Interpretation Comments Eosinophils # (test code 0.2 See_Comment [A utomated message] The = Eosinophils #) system whic h generated this result tra nsmitted reference range : <=0.5. The reference r leatha was not used to int erpret this result as normal/abnormal . [facility]anoIoulwgjNKOIJPSAUN4055-41-64 09:17:00 Test Item Value Reference Range Interpretation Comments Monocytes # (test code 0.9 See_Comment [Aut omated message] The = Monocytes #) system which generated this result tra nsmitted reference range : <=0.8. The reference r leatha was not used to int erpret this result as normal/abnormal . [facility]anoQmbhlihGMUCXSEORD0277-90-00 09:17:00 Test Item Value Reference Range Interpretation Comments Platelet (test code = Platelet) 149 133-450 [facility]anoMtiktmxZFLEDSIVCD4015-48-44 09:17:00 Test Item Value Reference Range Interpretation Comments WBC (test code = WBC) 7.3 3.7-10.4 [facility]anoHqohlikSDPJWPQEZB3631-42-53 09:17:00 Test Item Value Reference Range Interpretation Comments Hct (test code = Hct) 39.8 36.0-48.0 [facility]anoXmsqdnsHXDJVGQITE9667-06-65 09:17:00 Test Item Value Reference Range Interpretation Comments Hgb (test code = Hgb) 13.0 12.0-16.0 [facility]anoOtpjewpVRVYNPYNVW9154-79-12 09:17:00 Test Item Value Reference Range Interpretation Comments RBC (test code = RBC) 4.23 4.20-5.40 [facility]anoXwumfiwDFTTCBWSLQ8411-86-61 09:17:00 Test Item Value Reference Range Interpretation Comments MCHC (test code = MCHC) 32.8 32.0-36.0 [facility]anoOkcsrujRIKFEIGZYR8632-97-66 09:17:00 Test Item Value Reference Range Interpretation Comments MCV (test code = MCV) 94.0 80.0-98.0 [facility]anoSqjhfkxUFLXDNKALA2865-37-25 09:17:00 Test Item Value Reference Range Interpretation Comments MCH (test code = MCH) 30.8 pg 27.0-31.0 [facility]anoSixrmntQBZJDLAATI6603-55-54 09:17:00 Test Item Value Reference Range Interpretation Comments RDW (test code = RDW) 13.5 11.5-14.5 [facility]anoRqqnsozCHWOPXSGTV3259-28-90 09:17:00 Test Item Value Reference Range Interpretation Comments MPV (test code = MPV) 9.6 7.4-10.4 [facility]2016-07-30 09:17:00 Test Item Value Reference Range Interpretation Comments eGFR (test code = eGFR) 81 [facility]2016-07-30 09:17:00 Test Item Value Reference Range Interpretation Comments Creatinine Lvl (test code = Creatinine 0.73 0.50-1.40 Lvl) [facility]2016-07-30 09:17:00 Test Item Value Reference Range Interpretation Comments AST (test code = AST) 7 See_Comment [Auto mated message] The system which ge nerated this result transmit juan reference range : <=37. The reference range was not used to interpr et this result as lashonda l/abnormal. [facility]2016-07-30 09:17:00 Test Item Value Reference Range Interpretation Comments Total Protein (test code = Total 5.0 6.4-8.4 Protein) [facility]2016-07-30 09:17:00 Test Item Value Reference Range Interpretation Comments Alk Phos (test code = Alk Phos) 73 39-136 [facility]2016-07-30 09:17:00 Test Item Value Reference Range Interpretation Comments ALT (test code = ALT) 29 See_Comment [Auto mated message] The system which ge nerated this result transmit juan reference range : <=65. The reference range was not used to interpr et this result as lashonda l/abnormal. [facility]2016-07-30 09:17:00 Test Item Value Reference Range Interpretation Comments Bili Total (test code = Bili Total) 0.7 0.2-1.3 [facility]2016-07-30 09:17:00 Test Item Value Reference Range Interpretation Comments Albumin Lvl (test code = Albumin Lvl) 2.7 3.5-5.0 [facility]2016-07-30 09:17:00 Test Item Value Reference Range Interpretation Comments AGAP (test code = AGAP) 10.9 10.0-20.0 [facility]2016-07-30 09:17:00 Test Item Value Reference Range Interpretation Comments Calcium Lvl (test code = Calcium Lvl) 10.0 8.5-10.5 [facility]2016-07-30 09:17:00 Test Item Value Reference Range Interpretation Comments Glucose Lvl (test code = Glucose Lvl) 208 70-99 [facility]2016-07-30 09:17:00 Test Item Value Reference Range Interpretation Comments Potassium Lvl (test code = Potassium 3.9 3.5-5.1 Lvl) [facility]2016-07-30 09:17:00 Test Item Value Reference Range Interpretation Comments BUN (test code = BUN) 20 7-22 [facility]2016-07-30 09:17:00 Test Item Value Reference Range Interpretation Comments Sodium Lvl (test code = Sodium Lvl) 145 135-145 [facility]2016-07-30 09:17:00 Test Item Value Reference Range Interpretation Comments Chloride Lvl (test code = Chloride Lvl) 109 95-109 [facility]2016-07-30 09:17:00 Test Item Value Reference Range Interpretation Comments CO2 (test code = CO2) 29 24-32 [facility]2016-07-30 09:17:00 Test Item Value Reference Range Interpretation Comments B/C Ratio (test code = B/C Ratio) 27 6-25 [facility]2016-07-30 09:17:00 Test Item Value Reference Range Interpretation Comments A/G Ratio (test code = A/G Ratio) 1.2 0.7-1.6 [facility]2016-07-30 09:17:00 Test Item Value Reference Range Interpretation Comments Globulin (test code = Globulin) 2.3 2.0-4.0 [facility]anoRxkivqsCWBNDSKJKL4582-71-16 09:17:00 Test Item Value Reference Range Interpretation Comments Monocytes (test code = Monocytes) 11.7 2.0-12.0 [facility]anoWcaihfeJVXQVPEZCI0401-17-09 09:17:00 Test Item Value Reference Range Interpretation Comments Segs-Bands # (test code = Segs-Bands #) 4.9 1.5-8.1 [facility]anoRjguqlaJICRIBUYKB3727-46-49 09:17:00 Test Item Value Reference Range Interpretation Comments Basophils (test code = 0.4 See_Comment [Aut omated message] The Basophils) system which ge nerated this result tra nsmitted reference range : <=1.0. The reference r leatha was not used to int erpret this result as normal/abnormal . [facility]anoKqtijhuJDFXTFVBOA7218-96-68 09:17:00 Test Item Value Reference Range Interpretation Comments Lymphocytes # (test code = Lymphocytes 1.3 1.0-5.5 #) [facility]anoNsjonyrGUIMYJCSXB7174-04-08 09:17:00 Test Item Value Reference Range Interpretation Comments Macrocyte (test code = 1+ *ABN*(01/15/16 Macrocyte) 4:17 AM) [facility]anoUgknhbvEWERPHXDGR3383-39-76 09:17:00 Test Item Value Reference Range Interpretation Comments Segs (test code = Segs) 67.7 45.0-75.0 [facility]anoXnptasmJASTMRSGIS5078-23-41 09:17:00 Test Item Value Reference Range Interpretation Comments Lymphocytes (test code = Lymphocytes) 17.4 20.0-40.0 [facility]anoMptdlksYQOWVBQIOC4112-77-65 09:17:00 Test Item Value Reference Range Interpretation Comments Eosinophils (test code = 2.8 See_Comment [A utomated message] The Eosinophils) system which ge nerated this result tra nsmitted reference range : <=4.0. The reference r leatha was not used to int erpret this result as normal/abnormal . [facility]anoPjzoskqWOYFXYOTSQ0286-16-50 09:17:00 Test Item Value Reference Range Interpretation Comments Basophils # (test code 0.0 See_Comment [Aut omated message] The = Basophils #) system which generated this result tra nsmitted reference range : <=0.2. The reference r leatha was not used to int erpret this result as normal/abnormal . [facility]anoJyfhxznUMMPGJYLGY9362-24-32 09:17:00 Test Item Value Reference Range Interpretation Comments Eosinophils # (test code 0.2 See_Comment [A utomated message] The = Eosinophils #) system whic h generated this result tra nsmitted reference range : <=0.5. The reference r leatha was not used to int erpret this result as normal/abnormal . [facility]anoOzscpakHJIJVLZINT2697-93-36 09:17:00 Test Item Value Reference Range Interpretation Comments Monocytes # (test code 0.9 See_Comment [Aut omated message] The = Monocytes #) system which generated this result tra nsmitted reference range : <=0.8. The reference r leatha was not used to int erpret this result as normal/abnormal . [facility]anoPtrnmqcQWKGNTUOXG3603-22-36 09:17:00 Test Item Value Reference Range Interpretation Comments Platelet (test code = Platelet) 149 133-450 [facility]anoOswuxoqXQVYYTLSAO6907-88-37 09:17:00 Test Item Value Reference Range Interpretation Comments WBC (test code = WBC) 7.3 3.7-10.4 [facility]anoVshcjqaYICCWGSRYA2329-02-82 09:17:00 Test Item Value Reference Range Interpretation Comments Hct (test code = Hct) 39.8 36.0-48.0 [facility]anoLdqqmfcLAVEDDCACJ8022-69-31 09:17:00 Test Item Value Reference Range Interpretation Comments Hgb (test code = Hgb) 13.0 12.0-16.0 [facility]anoUpinnccCUAZKLNRUK3295-36-12 09:17:00 Test Item Value Reference Range Interpretation Comments RBC (test code = RBC) 4.23 4.20-5.40 [facility]anoDzjmtzuLJBTHMINYU2297-95-44 09:17:00 Test Item Value Reference Range Interpretation Comments MCHC (test code = MCHC) 32.8 32.0-36.0 [facility]anoVmhsjipERUREDPBYY0883-34-04 09:17:00 Test Item Value Reference Range Interpretation Comments MCV (test code = MCV) 94.0 80.0-98.0 [facility]anoCiqogjpMSJMLTNNSF5668-19-52 09:17:00 Test Item Value Reference Range Interpretation Comments MCH (test code = MCH) 30.8 pg 27.0-31.0 [facility]anoOdrrrleAZROQHVXXE8924-42-36 09:17:00 Test Item Value Reference Range Interpretation Comments RDW (test code = RDW) 13.5 11.5-14.5 [facility]SuomqenMCMEBPHLOX6917-71-88 09:17:00 Test Item Value Reference Range Interpretation Comments MPV (test code = MPV) 9.6 7.4-10.4 [facility]2016-07-30 09:17:00 Test Item Value Reference Range Interpretation Comments eGFR (test code = eGFR) 81 [facility]2016-07-30 09:17:00 Test Item Value Reference Range Interpretation Comments Creatinine Lvl (test code = Creatinine 0.73 0.50-1.40 Lvl) [facility]2016-07-30 09:17:00 Test Item Value Reference Range Interpretation Comments AST (test code = AST) 7 See_Comment [Auto mated message] The system which ge nerated this result transmit juan reference range : <=37. The reference range was not used to interpr et this result as lashonda l/abnormal. [facility]2016-07-30 09:17:00 Test Item Value Reference Range Interpretation Comments Total Protein (test code = Total 5.0 6.4-8.4 Protein) [place] [id number] 09:17:00 Test Item Value Reference Range Interpretation Comments Alk Phos (test code = Alk Phos) 73 39-136 [facility]2016-07-30 09:17:00 Test Item Value Reference Range Interpretation Comments ALT (test code = ALT) 29 See_Comment [Auto mated message] The system which ge nerated this result transmit juan reference range : <=65. The reference range was not used to interpr et this result as lashonda l/abnormal. [facility]2016-07-30 09:17:00 Test Item Value Reference Range Interpretation Comments Bili Total (test code = Bili Total) 0.7 0.2-1.3 [facility]2016-07-30 09:17:00 Test Item Value Reference Range Interpretation Comments Albumin Lvl (test code = Albumin Lvl) 2.7 3.5-5.0 [facility]2016-07-30 09:17:00 Test Item Value Reference Range Interpretation Comments AGAP (test code = AGAP) 10.9 10.0-20.0 [facility]2016-07-30 09:17:00 Test Item Value Reference Range Interpretation Comments Calcium Lvl (test code = Calcium Lvl) 10.0 8.5-10.5 [facility]2016-07-30 09:17:00 Test Item Value Reference Range Interpretation Comments Glucose Lvl (test code = Glucose Lvl) 208 70-99 [facility]2016-07-30 09:17:00 Test Item Value Reference Range Interpretation Comments Potassium Lvl (test code = Potassium 3.9 3.5-5.1 Lvl) [facility]2016-07-30 09:17:00 Test Item Value Reference Range Interpretation Comments BUN (test code = BUN) 20 7-22 [facility]2016-07-30 09:17:00 Test Item Value Reference Range Interpretation Comments Sodium Lvl (test code = Sodium Lvl) 145 135-145 [facility]2016-07-30 09:17:00 Test Item Value Reference Range Interpretation Comments Chloride Lvl (test code = Chloride Lvl) 109 95-109 [facility]2016-07-30 09:17:00 Test Item Value Reference Range Interpretation Comments CO2 (test code = CO2) 29 24-32 [facility]2016-07-30 09:17:00 Test Item Value Reference Range Interpretation Comments B/C Ratio (test code = B/C Ratio) 27 6-25 [facility]2016-07-30 09:17:00 Test Item Value Reference Range Interpretation Comments A/G Ratio (test code = A/G Ratio) 1.2 0.7-1.6 [facility]2016-07-30 09:17:00 Test Item Value Reference Range Interpretation Comments Globulin (test code = Globulin) 2.3 2.0-4.0 [facility]anoOlvwfuyNAKOOUXMOR7053-54-02 09:17:00 Test Item Value Reference Range Interpretation Comments Monocytes (test code = Monocytes) 11.7 2.0-12.0 [facility]anoWaganyqONQWQSHHBV9297-12-02 09:17:00 Test Item Value Reference Range Interpretation Comments Segs-Bands # (test code = Segs-Bands #) 4.9 1.5-8.1 [facility]anoTgrtwbxIOUACRMUFJ7104-79-94 09:17:00 Test Item Value Reference Range Interpretation Comments Basophils (test code = 0.4 See_Comment [Aut omated message] The Basophils) system which ge nerated this result tra nsmitted reference range : <=1.0. The reference r leatha was not used to int erpret this result as normal/abnormal . [facility]anoNghjwapCGAOORIGCP7642-29-68 09:17:00 Test Item Value Reference Range Interpretation Comments Lymphocytes # (test code = Lymphocytes 1.3 1.0-5.5 #) [facility]anoRxbqtfcJLRZFTFKLH6878-52-60 09:17:00 Test Item Value Reference Range Interpretation Comments Macrocyte (test code = 1+ *ABN*(01/15/16 Macrocyte) 4:17 AM) [facility]anoEieqhakJDBOMQYMSK5017-38-55 09:17:00 Test Item Value Reference Range Interpretation Comments Segs (test code = Segs) 67.7 45.0-75.0 [facility]anoSxyjqdcFCZQOMBOLL6888-34-72 09:17:00 Test Item Value Reference Range Interpretation Comments Lymphocytes (test code = Lymphocytes) 17.4 20.0-40.0 [facility]anoWlxqirnVVGVHAAMCL9217-38-40 09:17:00 Test Item Value Reference Range Interpretation Comments Eosinophils (test code = 2.8 See_Comment [A utomated message] The Eosinophils) system which ge nerated this result tra nsmitted reference range : <=4.0. The reference r leatha was not used to int erpret this result as normal/abnormal . [facility]anoIqnxbheLXWVTYVNKD1280-67-08 09:17:00 Test Item Value Reference Range Interpretation Comments Basophils # (test code 0.0 See_Comment [Aut omated message] The = Basophils #) system which generated this result tra nsmitted reference range : <=0.2. The reference r leatha was not used to int erpret this result as normal/abnormal . [facility]anoQgcotajZADFEERZSG0919-06-61 09:17:00 Test Item Value Reference Range Interpretation Comments Eosinophils # (test code 0.2 See_Comment [A utomated message] The = Eosinophils #) system whic h generated this result tra nsmitted reference range : <=0.5. The reference r leatha was not used to int erpret this result as normal/abnormal . [facility]anoVykwzyhNBFZXWZDDV0041-66-10 09:17:00 Test Item Value Reference Range Interpretation Comments Monocytes # (test code 0.9 See_Comment [Aut omated message] The = Monocytes #) system which generated this result tra nsmitted reference range : <=0.8. The reference r leatha was not used to int erpret this result as normal/abnormal . [facility]anoSqvmjjwUISCMVKONE4203-15-33 09:17:00 Test Item Value Reference Range Interpretation Comments Platelet (test code = Platelet) 149 133-450 [facility]anoBkevupbSGBGJOKMOG6318-48-82 09:17:00 Test Item Value Reference Range Interpretation Comments WBC (test code = WBC) 7.3 3.7-10.4 [facility]anoZthljvsEKBWWQPMXV3880-74-76 09:17:00 Test Item Value Reference Range Interpretation Comments Hct (test code = Hct) 39.8 36.0-48.0 [facility]anoSxhciudEFMVBMREFV4677-59-79 09:17:00 Test Item Value Reference Range Interpretation Comments Hgb (test code = Hgb) 13.0 12.0-16.0 [facility]anoIaxritrQBJBOWGMPI2752-80-24 09:17:00 Test Item Value Reference Range Interpretation Comments RBC (test code = RBC) 4.23 4.20-5.40 [facility]anoOxtvafxLYBOSTASRK3261-85-64 09:17:00 Test Item Value Reference Range Interpretation Comments MCHC (test code = MCHC) 32.8 32.0-36.0 [facility]anoMocpeohTBCSJQXOQB6536-19-93 09:17:00 Test Item Value Reference Range Interpretation Comments MCV (test code = MCV) 94.0 80.0-98.0 [facility]anoXyqhaaaXDOTANDDPH0502-44-54 09:17:00 Test Item Value Reference Range Interpretation Comments MCH (test code = MCH) 30.8 pg 27.0-31.0 [facility]anoOhquzbnYMBYQMDQVD3460-39-86 09:17:00 Test Item Value Reference Range Interpretation Comments RDW (test code = RDW) 13.5 11.5-14.5 [facility]anoYgfxecwSVMTUETFEZ1149-24-63 09:17:00 Test Item Value Reference Range Interpretation Comments MPV (test code = MPV) 9.6 7.4-10.4 [facility]2016-07-29 10:06:00 Test Item Value Reference Range Interpretation Comments Glucose Lvl (test code = Glucose Lvl) 133 70-99 [facility]2016-07-29 10:06:00 Test Item Value Reference Range Interpretation Comments BUN (test code = BUN) 15 7-22 [facility]2016-07-29 10:06:00 Test Item Value Reference Range Interpretation Comments AGAP (test code = AGAP) 11.7 10.0-20.0 [facility]2016-07-29 10:06:00 Test Item Value Reference Range Interpretation Comments Calcium Lvl (test code = Calcium Lvl) 10.1 8.5-10.5 [facility]2016-07-29 10:06:00 Test Item Value Reference Range Interpretation Comments Potassium Lvl (test code = Potassium 3.7 3.5-5.1 Lvl) [facility]2016-07-29 10:06:00 Test Item Value Reference Range Interpretation Comments Sodium Lvl (test code = Sodium Lvl) 145 135-145 [facility]2016-07-29 10:06:00 Test Item Value Reference Range Interpretation Comments CO2 (test code = CO2) 28 24-32 [facility]2016-07-29 10:06:00 Test Item Value Reference Range Interpretation Comments Chloride Lvl (test code = Chloride Lvl) 109 95-109 [facility]2016-07-29 10:06:00 Test Item Value Reference Range Interpretation Comments Creatinine Lvl (test code = Creatinine 0.70 0.50-1.40 Lvl) [facility]2016-07-29 10:06:00 Test Item Value Reference Range Interpretation Comments eGFR (test code = eGFR) 86 [facility]2016-07-29 10:06:00 Test Item Value Reference Range Interpretation Comments Glucose Lvl (test code = Glucose Lvl) 133 70-99 [facility]2016-07-29 10:06:00 Test Item Value Reference Range Interpretation Comments BUN (test code = BUN) 15 7-22 [facility]2016-07-29 10:06:00 Test Item Value Reference Range Interpretation Comments AGAP (test code = AGAP) 11.7 10.0-20.0 [facility]2016-07-29 10:06:00 Test Item Value Reference Range Interpretation Comments Calcium Lvl (test code = Calcium Lvl) 10.1 8.5-10.5 [facility]2016-07-29 10:06:00 Test Item Value Reference Range Interpretation Comments Potassium Lvl (test code = Potassium 3.7 3.5-5.1 Lvl) [facility]2016-07-29 10:06:00 Test Item Value Reference Range Interpretation Comments Sodium Lvl (test code = Sodium Lvl) 145 135-145 [facility]2016-07-29 10:06:00 Test Item Value Reference Range Interpretation Comments CO2 (test code = CO2) 28 24-32 [facility]2016-07-29 10:06:00 Test Item Value Reference Range Interpretation Comments Chloride Lvl (test code = Chloride Lvl) 109 95-109 [facility]2016-07-29 10:06:00 Test Item Value Reference Range Interpretation Comments Creatinine Lvl (test code = Creatinine 0.70 0.50-1.40 Lvl) [facility]2016-07-29 10:06:00 Test Item Value Reference Range Interpretation Comments eGFR (test code = eGFR) 86 [facility]2016-07-29 10:06:00 Test Item Value Reference Range Interpretation Comments Glucose Lvl (test code = Glucose Lvl) 133 70-99 [facility]2016-07-29 10:06:00 Test Item Value Reference Range Interpretation Comments BUN (test code = BUN) 15 01-06 [facility]2016-07-29 10:06:00 Test Item Value Reference Range Interpretation Comments AGAP (test code = AGAP) 11.7 10.0-20.0 [facility]2016-07-29 10:06:00 Test Item Value Reference Range Interpretation Comments Calcium Lvl (test code = Calcium Lvl) 10.1 8.5-10.5 [facility]2016-07-29 10:06:00 Test Item Value Reference Range Interpretation Comments Potassium Lvl (test code = Potassium 3.7 3.5-5.1 Lvl) [facility]2016-07-29 10:06:00 Test Item Value Reference Range Interpretation Comments Sodium Lvl (test code = Sodium Lvl) 145 135-145 [facility]2016-07-29 10:06:00 Test Item Value Reference Range Interpretation Comments CO2 (test code = CO2) 28 24-32 [facility]2016-07-29 10:06:00 Test Item Value Reference Range Interpretation Comments Chloride Lvl (test code = Chloride Lvl) 109 95-109 [facility]2016-07-29 10:06:00 Test Item Value Reference Range Interpretation Comments Creatinine Lvl (test code = Creatinine 0.70 0.50-1.40 Lvl) [facility]2016-07-29 10:06:00 Test Item Value Reference Range Interpretation Comments eGFR (test code = eGFR) 86 [facility]2016-07-29 10:06:00 Test Item Value Reference Range Interpretation Comments Glucose Lvl (test code = Glucose Lvl) 133 70-99 [facility]2016-07-29 10:06:00 Test Item Value Reference Range Interpretation Comments BUN (test code = BUN) 15 01-06 [facility]2016-07-29 10:06:00 Test Item Value Reference Range Interpretation Comments AGAP (test code = AGAP) 11.7 10.0-20.0 [facility]2016-07-29 10:06:00 Test Item Value Reference Range Interpretation Comments Calcium Lvl (test code = Calcium Lvl) 10.1 8.5-10.5 [facility]2016-07-29 10:06:00 Test Item Value Reference Range Interpretation Comments Potassium Lvl (test code = Potassium 3.7 3.5-5.1 Lvl) [facility]2016-07-29 10:06:00 Test Item Value Reference Range Interpretation Comments Sodium Lvl (test code = Sodium Lvl) 145 135-145 [facility]2016-07-29 10:06:00 Test Item Value Reference Range Interpretation Comments CO2 (test code = CO2) 28 24-32 [facility]2016-07-29 10:06:00 Test Item Value Reference Range Interpretation Comments Chloride Lvl (test code = Chloride Lvl) 109 95-109 [facility]2016-07-29 10:06:00 Test Item Value Reference Range Interpretation Comments Creatinine Lvl (test code = Creatinine 0.70 0.50-1.40 Lvl) [facility]2016-07-29 10:06:00 Test Item Value Reference Range Interpretation Comments eGFR (test code = eGFR) 86 [facility]2016-07-29 10:06:00 Test Item Value Reference Range Interpretation Comments Glucose Lvl (test code = Glucose Lvl) 133 70-99 [facility]2016-07-29 10:06:00 Test Item Value Reference Range Interpretation Comments BUN (test code = BUN) 15 7-22 [facility]2016-07-29 10:06:00 Test Item Value Reference Range Interpretation Comments AGAP (test code = AGAP) 11.7 10.0-20.0 [facility]2016-07-29 10:06:00 Test Item Value Reference Range Interpretation Comments Calcium Lvl (test code = Calcium Lvl) 10.1 8.5-10.5 [facility]2016-07-29 10:06:00 Test Item Value Reference Range Interpretation Comments Potassium Lvl (test code = Potassium 3.7 3.5-5.1 Lvl) [facility]2016-07-29 10:06:00 Test Item Value Reference Range Interpretation Comments Sodium Lvl (test code = Sodium Lvl) 145 135-145 [place] 883856-07-29 10:06:00 Test Item Value Reference Range Interpretation Comments CO2 (test code = CO2) 28 - [facility]2016-07-29 10:06:00 Test Item Value Reference Range Interpretation Comments Chloride Lvl (test code = Chloride Lvl) 109 95-109 [facility]2016-07-29 10:06:00 Test Item Value Reference Range Interpretation Comments Creatinine Lvl (test code = Creatinine 0.70 0.50-1.40 Lvl) [facility]2016-07-29 10:06:00 Test Item Value Reference Range Interpretation Comments eGFR (test code = eGFR) 86 [facility]2016-07-29 10:06:00 Test Item Value Reference Range Interpretation Comments Glucose Lvl (test code = Glucose Lvl) 133 70-99 [facility]2016-07-29 10:06:00 Test Item Value Reference Range Interpretation Comments BUN (test code = BUN) 15 7-22 [facility]2016-07-29 10:06:00 Test Item Value Reference Range Interpretation Comments AGAP (test code = AGAP) 11.7 10.0-20.0 [facility]2016-07-29 10:06:00 Test Item Value Reference Range Interpretation Comments Calcium Lvl (test code = Calcium Lvl) 10.1 8.5-10.5 [facility]2016-07-29 10:06:00 Test Item Value Reference Range Interpretation Comments Potassium Lvl (test code = Potassium 3.7 3.5-5.1 Lvl) [facility]2016-07-29 10:06:00 Test Item Value Reference Range Interpretation Comments Sodium Lvl (test code = Sodium Lvl) 145 135-145 [facility]2016-07-29 10:06:00 Test Item Value Reference Range Interpretation Comments CO2 (test code = CO2) 28 -32 [facility]2016-07-29 10:06:00 Test Item Value Reference Range Interpretation Comments Chloride Lvl (test code = Chloride Lvl) 109 95-109 [facility]2016-07-29 10:06:00 Test Item Value Reference Range Interpretation Comments Creatinine Lvl (test code = Creatinine 0.70 0.50-1.40 Lvl) [facility]2016-07-29 10:06:00 Test Item Value Reference Range Interpretation Comments eGFR (test code = eGFR) 86 [facility]2016-07-29 10:06:00 Test Item Value Reference Range Interpretation Comments Glucose Lvl (test code = Glucose Lvl) 133 70-99 [facility]2016-07-29 10:06:00 Test Item Value Reference Range Interpretation Comments BUN (test code = BUN) 15 7-22 [facility]2016-07-29 10:06:00 Test Item Value Reference Range Interpretation Comments AGAP (test code = AGAP) 11.7 10.0-20.0 [facility]2016-07-29 10:06:00 Test Item Value Reference Range Interpretation Comments Calcium Lvl (test code = Calcium Lvl) 10.1 8.5-10.5 [facility]2016-07-29 10:06:00 Test Item Value Reference Range Interpretation Comments Potassium Lvl (test code = Potassium 3.7 3.5-5.1 Lvl) [facility]2016-07-29 10:06:00 Test Item Value Reference Range Interpretation Comments Sodium Lvl (test code = Sodium Lvl) 145 135-145 [facility]2016-07-29 10:06:00 Test Item Value Reference Range Interpretation Comments CO2 (test code = CO2) 28 24-32 [facility]2016-07-29 10:06:00 Test Item Value Reference Range Interpretation Comments Chloride Lvl (test code = Chloride Lvl) 109 95-109 [facility]2016-07-29 10:06:00 Test Item Value Reference Range Interpretation Comments Creatinine Lvl (test code = Creatinine 0.70 0.50-1.40 Lvl) [facility]2016-07-29 10:06:00 Test Item Value Reference Range Interpretation Comments eGFR (test code = eGFR) 86 [facility]2016-07-28 10:43:00 Test Item Value Reference Range Interpretation Comments Total Protein (test code = Total 4.9 6.4-8.4 Protein) [facility]2016-07-28 10:43:00 Test Item Value Reference Range Interpretation Comments Alk Phos (test code = Alk Phos) 60 39-136 [place] 883856-07-28 10:43:00 Test Item Value Reference Range Interpretation Comments Bili Total (test code = Bili Total) 0.4 0.2-1.3 [facility]2016-07-28 10:43:00 Test Item Value Reference Range Interpretation Comments ALT (test code = ALT) 22 See_Comment [Auto mated message] The system which ge nerated this result transmit juan reference range : <=65. The reference range was not used to interpr et this result as lashonda l/abnormal. [facility]2016-07-28 10:43:00 Test Item Value Reference Range Interpretation Comments AST (test code = AST) 12 See_Comment [Auto mated message] The system which ge nerated this result transmit juan reference range : <=37. The reference range was not used to interpr et this result as lashonda l/abnormal. [facility]2016-07-28 10:43:00 Test Item Value Reference Range Interpretation Comments Albumin Lvl (test code = Albumin Lvl) 2.7 3.5-5.0 [facility]2016-07-28 10:43:00 Test Item Value Reference Range Interpretation Comments Globulin (test code = Globulin) 2.2 2.0-4.0 [facility]2016-07-28 10:43:00 Test Item Value Reference Range Interpretation Comments A/G Ratio (test code = A/G Ratio) 1.2 0.7-1.6 [facility]2016-07-28 10:43:00 Test Item Value Reference Range Interpretation Comments B/C Ratio (test code = B/C Ratio) 23 6-25 [facility]GxvzefkVNEEEIGVGS3454-49-42 10:43:00 Test Item Value Reference Range Interpretation Comments RBC (test code = RBC) 4.18 4.20-5.40 [facility]anoPnmnmruKTJDWACQBI3605-12-62 10:43:00 Test Item Value Reference Range Interpretation Comments WBC (test code = WBC) 6.7 3.7-10.4 [facility]anoJpmxdvbAXTHKSDCHC7078-20-06 10:43:00 Test Item Value Reference Range Interpretation Comments MPV (test code = MPV) 9.3 7.4-10.4 [facility]anoEkqtgihQVNBSXTUCW2936-88-80 10:43:00 Test Item Value Reference Range Interpretation Comments Platelet (test code = Platelet) 159 133-450 [facility]anoMkntxjkGVQUISQVVD0771-93-78 10:43:00 Test Item Value Reference Range Interpretation Comments RDW (test code = RDW) 12.8 11.5-14.5 [facility]anoNokiooaWRHOFJADKW4828-84-05 10:43:00 Test Item Value Reference Range Interpretation Comments MCH (test code = MCH) 30.7 pg 27.0-31.0 [facility]anoUjfbhcaUCXPEHVFDK2882-21-90 10:43:00 Test Item Value Reference Range Interpretation Comments MCV (test code = MCV) 93.8 80.0-98.0 [facility]anoSpvohmnAUSRRIZCXI5511-13-64 10:43:00 Test Item Value Reference Range Interpretation Comments Hct (test code = Hct) 39.2 36.0-48.0 [facility]anoWyccxxdLLRMBMOOYW8981-89-71 10:43:00 Test Item Value Reference Range Interpretation Comments Hgb (test code = Hgb) 12.8 12.0-16.0 [facility]anoIjwjcwxJJEEQXEVPP8731-82-19 10:43:00 Test Item Value Reference Range Interpretation Comments MCHC (test code = MCHC) 32.8 32.0-36.0 [facility]anoVtrnymbIQRROJCPGE1392-59-68 10:43:00 Test Item Value Reference Range Interpretation Comments Lymphocytes (test code = Lymphocytes) 21.4 20.0-40.0 [facility]anoAsgodtqESRNSDLHEJ1057-69-80 10:43:00 Test Item Value Reference Range Interpretation Comments Segs (test code = Segs) 64.1 45.0-75.0 [facility]anoYxkxbpzNNRUILOQTO4196-76-69 10:43:00 Test Item Value Reference Range Interpretation Comments Eosinophils (test code = 3.1 See_Comment [A utomated message] The Eosinophils) system which ge nerated this result tra nsmitted reference range : <=4.0. The reference r leatha was not used to int erpret this result as normal/abnormal . [facility]anoVtohyhsKYVINCXNAQ7666-75-83 10:43:00 Test Item Value Reference Range Interpretation Comments Monocytes (test code = Monocytes) 10.9 2.0-12.0 [facility]anoGdtncyjUNEJZJULRX0669-71-70 10:43:00 Test Item Value Reference Range Interpretation Comments Basophils (test code = 0.5 See_Comment [Aut omated message] The Basophils) system which ge nerated this result tra nsmitted reference range : <=1.0. The reference r leatha was not used to int erpret this result as normal/abnormal . [facility]anoBwfpxgxCHAWQHEFLH3472-44-16 10:43:00 Test Item Value Reference Range Interpretation Comments Basophils # (test code 0.0 See_Comment [Aut omated message] The = Basophils #) system which generated this result tra nsmitted reference range : <=0.2. The reference r leatha was not used to int erpret this result as normal/abnormal . [facility]anoIjiposdGJKCYLWXGH0126-65-53 10:43:00 Test Item Value Reference Range Interpretation Comments Eosinophils # (test code 0.2 See_Comment [A utomated message] The = Eosinophils #) system whic h generated this result tra nsmitted reference range : <=0.5. The reference r leatha was not used to int erpret this result as normal/abnormal . [facility]anoDmjhtdsDLLJOXMZKQ1346-12-48 10:43:00 Test Item Value Reference Range Interpretation Comments Monocytes # (test code 0.7 See_Comment [Aut omated message] The = Monocytes #) system which generated this result tra nsmitted reference range : <=0.8. The reference r leatha was not used to int erpret this result as normal/abnormal . [facility] PlanoOtcoeaqFGNIGEMGUK0081-73-27 10:43:00 Test Item Value Reference Range Interpretation Comments Lymphocytes # (test code = Lymphocytes 1.4 1.0-5.5 #) [facility]anoYkdrjkdOJNEPCRHYP5162-04-91 10:43:00 Test Item Value Reference Range Interpretation Comments Segs-Bands # (test code = Segs-Bands #) 4.3 1.5-8.1 [facility]2016-07-28 10:43:00 Test Item Value Reference Range Interpretation Comments Total Protein (test code = Total 4.9 6.4-8.4 Protein) [facility]2016-07-28 10:43:00 Test Item Value Reference Range Interpretation Comments Alk Phos (test code = Alk Phos) 60 39-136 [facility] [facility] 10:[facility]:00 Test Item Value Reference Range Interpretation Comments Bili Total (test code = Bili Total) 0.4 0.2-1.3 [facility]2016-07-28 10:43:00 Test Item Value Reference Range Interpretation Comments ALT (test code = ALT) 22 See_Comment [Auto mated message] The system which ge nerated this result transmit juan reference range : <=65. The reference range was not used to interpr et this result as lashonda l/abnormal. [facility]2016-07-28 10:43:00 Test Item Value Reference Range Interpretation Comments AST (test code = AST) 12 See_Comment [Auto mated message] The system which ge nerated this result transmit juan reference range : <=37. The reference range was not used to interpr et this result as lashonda l/abnormal. [facility]2016-07-28 10:43:00 Test Item Value Reference Range Interpretation Comments Albumin Lvl (test code = Albumin Lvl) 2.7 3.5-5.0 [facility]2016-07-28 10:43:00 Test Item Value Reference Range Interpretation Comments Globulin (test code = Globulin) 2.2 2.0-4.0 [facility]2016-07-28 10:43:00 Test Item Value Reference Range Interpretation Comments A/G Ratio (test code = A/G Ratio) 1.2 0.7-1.6 [facility]2016-07-28 10:43:00 Test Item Value Reference Range Interpretation Comments B/C Ratio (test code = B/C Ratio) 23 6-25 [facility]wYEBLURMAZS1685-98-76 10:43:00 Test Item Value Reference Range Interpretation Comments RBC (test code = RBC) 4.18 4.20-5.40 [facility]HpkzmfbISQZQQZIHG1927-04-67 10:43:00 Test Item Value Reference Range Interpretation Comments WBC (test code = WBC) 6.7 3.7-10.4 [facility]anoWyagpknQMUNYZIEID1679-66-30 10:43:00 Test Item Value Reference Range Interpretation Comments MPV (test code = MPV) 9.3 7.4-10.4 [facility]anoNirhxteSYZNHRLNAQ3136-19-67 10:43:00 Test Item Value Reference Range Interpretation Comments Platelet (test code = Platelet) 159 133-450 [facility]anoDmhpndhXMTTTKOOJG2736-42-55 10:43:00 Test Item Value Reference Range Interpretation Comments RDW (test code = RDW) 12.8 11.5-14.5 [facility]anoIpdekziLIUMJFEFFL0123-66-65 10:43:00 Test Item Value Reference Range Interpretation Comments MCH (test code = MCH) 30.7 pg 27.0-31.0 [facility]anoCpnthteKZWPJKGVPU2998-35-41 10:43:00 Test Item Value Reference Range Interpretation Comments MCV (test code = MCV) 93.8 80.0-98.0 [facility]anoYylojktFQKRIGFXVG6854-27-01 10:43:00 Test Item Value Reference Range Interpretation Comments Hct (test code = Hct) 39.2 36.0-48.0 [facility]anoBedhnldFGZHYCYVUA1508-79-69 10:43:00 Test Item Value Reference Range Interpretation Comments Hgb (test code = Hgb) 12.8 12.0-16.0 [facility]anoWcatomiSZWYNEOLZF8740-05-47 10:43:00 Test Item Value Reference Range Interpretation Comments MCHC (test code = MCHC) 32.8 32.0-36.0 [facility]anoVivniemZPVYYQNVRU5367-17-62 10:43:00 Test Item Value Reference Range Interpretation Comments Lymphocytes (test code = Lymphocytes) 21.4 20.0-40.0 [facility]anoYcfxcvdZPPZKKLQDU6750-00-69 10:43:00 Test Item Value Reference Range Interpretation Comments Segs (test code = Segs) 64.1 45.0-75.0 [facility]anoQqyjcdtHOFDKGKJNP6491-50-50 10:43:00 Test Item Value Reference Range Interpretation Comments Eosinophils (test code = 3.1 See_Comment [A utomated message] The Eosinophils) system which ge nerated this result tra nsmitted reference range : <=4.0. The reference r leatha was not used to int erpret this result as normal/abnormal . [facility]anoLjvbgqsAWOEXMHPIX3340-65-19 10:43:00 Test Item Value Reference Range Interpretation Comments Monocytes (test code = Monocytes) 10.9 2.0-12.0 [facility]anoMkoebqsJVBPRPKIYY1269-45-62 10:43:00 Test Item Value Reference Range Interpretation Comments Basophils (test code = 0.5 See_Comment [Aut omated message] The Basophils) system which ge nerated this result tra nsmitted reference range : <=1.0. The reference r leatha was not used to int erpret this result as normal/abnormal . [facility]anoHpxrpbaCCEDJFYYYT9687-29-67 10:43:00 Test Item Value Reference Range Interpretation Comments Basophils # (test code 0.0 See_Comment [Aut omated message] The = Basophils #) system which generated this result tra nsmitted reference range : <=0.2. The reference r leatha was not used to int erpret this result as normal/abnormal . [facility]anoDbxemojLXIJTWWEGQ6850-46-38 10:43:00 Test Item Value Reference Range Interpretation Comments Eosinophils # (test code 0.2 See_Comment [A utomated message] The = Eosinophils #) system whic h generated this result tra nsmitted reference range : <=0.5. The reference r leatha was not used to int erpret this result as normal/abnormal . [facility]anoQrnlxprLHLWEZDXYD3907-60-37 10:43:00 Test Item Value Reference Range Interpretation Comments Monocytes # (test code 0.7 See_Comment [Aut omated message] The = Monocytes #) system which generated this result tra nsmitted reference range : <=0.8. The reference r leatha was not used to int erpret this result as normal/abnormal . [facility]anoMmghokeKFQBSXRDWG4730-42-98 10:43:00 Test Item Value Reference Range Interpretation Comments Lymphocytes # (test code = Lymphocytes 1.4 1.0-5.5 #) [facility]anoDexcbnwNEXWMSNLEF8142-37-90 10:43:00 Test Item Value Reference Range Interpretation Comments Segs-Bands # (test code = Segs-Bands #) 4.3 1.5-8.1 [facility]2016-07-28 10:43:00 Test Item Value Reference Range Interpretation Comments Total Protein (test code = Total 4.9 6.4-8.4 Protein) [facility]2016-07-28 10:43:00 Test Item Value Reference Range Interpretation Comments Alk Phos (test code = Alk Phos) 60 39-136 [facility]2016-07-28 10:43:00 Test Item Value Reference Range Interpretation Comments Bili Total (test code = Bili Total) 0.4 0.2-1.3 [facility]2016-07-28 10:43:00 Test Item Value Reference Range Interpretation Comments ALT (test code = ALT) 22 See_Comment [Auto mated message] The system which ge nerated this result transmit juan reference range : <=65. The reference range was not used to interpr et this result as lashonda l/abnormal. [facility]2016-07-28 10:43:00 Test Item Value Reference Range Interpretation Comments AST (test code = AST) 12 See_Comment [Auto mated message] The system which ge nerated this result transmit juan reference range : <=37. The reference range was not used to interpr et this result as lashonda l/abnormal. [facility]2016-07-28 10:43:00 Test Item Value Reference Range Interpretation Comments Albumin Lvl (test code = Albumin Lvl) 2.7 3.5-5.0 [facility]2016-07-28 10:43:00 Test Item Value Reference Range Interpretation Comments Globulin (test code = Globulin) 2.2 2.0-4.0 [facility]2016-07-28 10:43:00 Test Item Value Reference Range Interpretation Comments A/G Ratio (test code = A/G Ratio) 1.2 0.7-1.6 [facility]2016-07-28 10:43:00 Test Item Value Reference Range Interpretation Comments B/C Ratio (test code = B/C Ratio) 23 6-25 [facility]anoIcfrgvtFBCGMTNIBQ5208-10-59 10:43:00 Test Item Value Reference Range Interpretation Comments RBC (test code = RBC) 4.18 4.20-5.40 [facility]anoHzkvverETPSAVGXKE1309-53-91 10:43:00 Test Item Value Reference Range Interpretation Comments WBC (test code = WBC) 6.7 3.7-10.4 [facility]anoPcbtgnzMEQANSLKSZ3016-34-55 10:43:00 Test Item Value Reference Range Interpretation Comments MPV (test code = MPV) 9.3 7.4-10.4 [facility]anoVreoojmBWRIGBOFXW0829-60-72 10:43:00 Test Item Value Reference Range Interpretation Comments Platelet (test code = Platelet) 159 133-450 [facility]anoIhmyvuuNXBICTTOYY5080-81-54 10:43:00 Test Item Value Reference Range Interpretation Comments RDW (test code = RDW) 12.8 11.5-14.5 [place] 088186-07-28 10:43:00 Test Item Value Reference Range Interpretation Comments MCH (test code = MCH) 30.7 pg 27.0-31.0 [facility]anoAfvsmvfKVYOPGYICC8598-41-77 10:43:00 Test Item Value Reference Range Interpretation Comments MCV (test code = MCV) 93.8 80.0-98.0 [facility]anoUwcszrkNEYCMLWYGY6317-75-95 10:43:00 Test Item Value Reference Range Interpretation Comments Hct (test code = Hct) 39.2 36.0-48.0 [facility]anoOtuhfioECJSVZCVJR4418-27-18 10:43:00 Test Item Value Reference Range Interpretation Comments Hgb (test code = Hgb) 12.8 12.0-16.0 [facility]anoAlvsrtlMPPGASUSWS0631-30-08 10:43:00 Test Item Value Reference Range Interpretation Comments MCHC (test code = MCHC) 32.8 32.0-36.0 [facility]anoQpcdcqkCAWVCYXFZC7920-93-10 10:43:00 Test Item Value Reference Range Interpretation Comments Lymphocytes (test code = Lymphocytes) 21.4 20.0-40.0 [facility]anoRopcbarMXKXBDSMMZ3698-47-14 10:43:00 Test Item Value Reference Range Interpretation Comments Segs (test code = Segs) 64.1 45.0-75.0 [facility]anoGnbupwnVVTSQCXOXL3820-31-79 10:43:00 Test Item Value Reference Range Interpretation Comments Eosinophils (test code = 3.1 See_Comment [A utomated message] The Eosinophils) system which ge nerated this result tra nsmitted reference range : <=4.0. The reference r leatha was not used to int erpret this result as normal/abnormal . [facility]anoBiqwaeuMECGEGZKCX8848-81-90 10:43:00 Test Item Value Reference Range Interpretation Comments Monocytes (test code = Monocytes) 10.9 2.0-12.0 [facility]anoLkxzawsFXVTZXHHDG9186-89-12 10:43:00 Test Item Value Reference Range Interpretation Comments Basophils (test code = 0.5 See_Comment [Aut omated message] The Basophils) system which ge nerated this result tra nsmitted reference range : <=1.0. The reference r leatha was not used to int erpret this result as normal/abnormal . [facility]anoVppjyupONXRHFXRSU3436-77-68 10:43:00 Test Item Value Reference Range Interpretation Comments Basophils # (test code 0.0 See_Comment [Aut omated message] The = Basophils #) system which generated this result tra nsmitted reference range : <=0.2. The reference r leatha was not used to int erpret this result as normal/abnormal . [facility]anoEozafaxICCIQSOTKY2212-86-40 10:43:00 Test Item Value Reference Range Interpretation Comments Eosinophils # (test code 0.2 See_Comment [A utomated message] The = Eosinophils #) system whic h generated this result tra nsmitted reference range : <=0.5. The reference r leatha was not used to int erpret this result as normal/abnormal . [facility]anoYulsmolCEGMCHNACF0428-04-65 10:43:00 Test Item Value Reference Range Interpretation Comments Monocytes # (test code 0.7 See_Comment [Aut omated message] The = Monocytes #) system which generated this result tra nsmitted reference range : <=0.8. The reference r leatha was not used to int erpret this result as normal/abnormal . [facility]anoAucvktsVAHMWNDHJK7910-99-49 10:43:00 Test Item Value Reference Range Interpretation Comments Lymphocytes # (test code = Lymphocytes 1.4 1.0-5.5 #) [facility]anoKyfnudcZDIRGFJSZD0659-00-55 10:43:00 Test Item Value Reference Range Interpretation Comments Segs-Bands # (test code = Segs-Bands #) 4.3 1.5-8.1 [facility]2016-07-28 10:43:00 Test Item Value Reference Range Interpretation Comments Total Protein (test code = Total 4.9 6.4-8.4 Protein) [facility]2016-07-28 10:43:00 Test Item Value Reference Range Interpretation Comments Alk Phos (test code = Alk Phos) 60 39-136 [facility]2016-07-28 10:43:00 Test Item Value Reference Range Interpretation Comments Bili Total (test code = Bili Total) 0.4 0.2-1.3 [facility]2016-07-28 10:43:00 Test Item Value Reference Range Interpretation Comments ALT (test code = ALT) 22 See_Comment [Auto mated message] The system which ge nerated this result transmit juan reference range : <=65. The reference range was not used to interpr et this result as lashonda l/abnormal. [facility]2016-07-28 10:43:00 Test Item Value Reference Range Interpretation Comments AST (test code = AST) 12 See_Comment [Auto mated message] The system which ge nerated this result transmit juan reference range : <=37. The reference range was not used to interpr et this result as lashonda l/abnormal. [facility]2016-07-28 10:43:00 Test Item Value Reference Range Interpretation Comments Albumin Lvl (test code = Albumin Lvl) 2.7 3.5-5.0 [facility]2016-07-28 10:43:00 Test Item Value Reference Range Interpretation Comments Globulin (test code = Globulin) 2.2 2.0-4.0 [facility]2016-07-28 10:43:00 Test Item Value Reference Range Interpretation Comments A/G Ratio (test code = A/G Ratio) 1.2 0.7-1.6 [facility]2016-07-28 10:43:00 Test Item Value Reference Range Interpretation Comments B/C Ratio (test code = B/C Ratio) 23 6-25 [facility]anoEowlwlvGPIWGZOLTH9094-09-03 10:43:00 Test Item Value Reference Range Interpretation Comments RBC (test code = RBC) 4.18 4.20-5.40 [facility]anoCeifksyKHNTJUDHYQ5064-49-45 10:43:00 Test Item Value Reference Range Interpretation Comments WBC (test code = WBC) 6.7 3.7-10.4 [facility]anoTafesxzKYVTYASUJR8677-98-11 10:43:00 Test Item Value Reference Range Interpretation Comments MPV (test code = MPV) 9.3 7.4-10.4 [facility]anoBlnuzizOQGJOBHHUZ6275-47-96 10:43:00 Test Item Value Reference Range Interpretation Comments Platelet (test code = Platelet) 159 133-450 [facility]anoSwrvmbwSDBITHVQNI1323-84-67 10:43:00 Test Item Value Reference Range Interpretation Comments RDW (test code = RDW) 12.8 11.5-14.5 [facility]anoNnvucsiNAXMAFIRMM0798-63-69 10:43:00 Test Item Value Reference Range Interpretation Comments MCH (test code = MCH) 30.7 pg 27.0-31.0 [facility]anoJrqzqleMFETPSSQKI4459-69-75 10:43:00 Test Item Value Reference Range Interpretation Comments MCV (test code = MCV) 93.8 80.0-98.0 [facility]anoWgtrkncRJFCXATBAM2063-50-25 10:43:00 Test Item Value Reference Range Interpretation Comments Hct (test code = Hct) 39.2 36.0-48.0 [facility]anoRgkqikhGZHHCCTUGU3925-59-67 10:43:00 Test Item Value Reference Range Interpretation Comments Hgb (test code = Hgb) 12.8 12.0-16.0 [facility]anoEkjgfzgXMCLLNWTWA8676-72-41 10:43:00 Test Item Value Reference Range Interpretation Comments MCHC (test code = MCHC) 32.8 32.0-36.0 [facility]anoEzroznhENUQITSQYY8356-30-44 10:43:00 Test Item Value Reference Range Interpretation Comments Lymphocytes (test code = Lymphocytes) 21.4 20.0-40.0 [facility]anoOfozhpmQJYEVRDCIK2930-40-08 10:43:00 Test Item Value Reference Range Interpretation Comments Segs (test code = Segs) 64.1 45.0-75.0 [facility]anoNwoaxzfKHYGJTDOHC0738-54-89 10:43:00 Test Item Value Reference Range Interpretation Comments Eosinophils (test code = 3.1 See_Comment [A utomated message] The Eosinophils) system which ge nerated this result tra nsmitted reference range : <=4.0. The reference r leatha was not used to int erpret this result as normal/abnormal . [facility]anoTfztyvdTHZCLPLYFE7553-13-57 10:43:00 Test Item Value Reference Range Interpretation Comments Monocytes (test code = Monocytes) 10.9 2.0-12.0 [facility]anoHkhrkwzPAEHQOPASE1526-23-53 10:43:00 Test Item Value Reference Range Interpretation Comments Basophils (test code = 0.5 See_Comment [Aut omated message] The Basophils) system which ge nerated this result tra nsmitted reference range : <=1.0. The reference r leatha was not used to int erpret this result as normal/abnormal . [facility]anoKjjxhgmXFFBKPFUEY8953-66-69 10:43:00 Test Item Value Reference Range Interpretation Comments Basophils # (test code 0.0 See_Comment [Aut omated message] The = Basophils #) system which generated this result tra nsmitted reference range : <=0.2. The reference r leatha was not used to int erpret this result as normal/abnormal . [facility]anoWlexcbqOQOCJOBWKV0927-32-03 10:43:00 Test Item Value Reference Range Interpretation Comments Eosinophils # (test code 0.2 See_Comment [A utomated message] The = Eosinophils #) system whic h generated this result tra nsmitted reference range : <=0.5. The reference r leatha was not used to int erpret this result as normal/abnormal . [facility]anoVkvsowtEDVKXMTPIM3631-03-23 10:43:00 Test Item Value Reference Range Interpretation Comments Monocytes # (test code 0.7 See_Comment [Aut omated message] The = Monocytes #) system which generated this result tra nsmitted reference range : <=0.8. The reference r leatha was not used to int erpret this result as normal/abnormal . [facility]anoNjbzusjLNPWEGWJEF5888-91-19 10:43:00 Test Item Value Reference Range Interpretation Comments Lymphocytes # (test code = Lymphocytes 1.4 1.0-5.5 #) [facility]anoYhdbervBSSTXENZRX6157-62-29 10:43:00 Test Item Value Reference Range Interpretation Comments Segs-Bands # (test code = Segs-Bands #) 4.3 1.5-8.1 [facility]2016-07-28 10:43:00 Test Item Value Reference Range Interpretation Comments Total Protein (test code = Total 4.9 6.4-8.4 Protein) [facility]2016-07-28 10:43:00 Test Item Value Reference Range Interpretation Comments Alk Phos (test code = Alk Phos) 60 39-136 [facility]2016-07-28 10:43:00 Test Item Value Reference Range Interpretation Comments Bili Total (test code = Bili Total) 0.4 0.2-1.3 [facility]2016-07-28 10:43:00 Test Item Value Reference Range Interpretation Comments ALT (test code = ALT) 22 See_Comment [Auto mated message] The system which ge nerated this result transmit juan reference range : <=65. The reference range was not used to interpr et this result as lashonda l/abnormal. [facility]2016-07-28 10:43:00 Test Item Value Reference Range Interpretation Comments AST (test code = AST) 12 See_Comment [Auto mated message] The system which ge nerated this result transmit juan reference range : <=37. The reference range was not used to interpr et this result as lashonda l/abnormal. [facility]2016-07-28 10:43:00 Test Item Value Reference Range Interpretation Comments Albumin Lvl (test code = Albumin Lvl) 2.7 3.5-5.0 [facility]2016-07-28 10:43:00 Test Item Value Reference Range Interpretation Comments Globulin (test code = Globulin) 2.2 2.0-4.0 [facility]2016-07-28 10:43:00 Test Item Value Reference Range Interpretation Comments A/G Ratio (test code = A/G Ratio) 1.2 0.7-1.6 [facility]2016-07-28 10:43:00 Test Item Value Reference Range Interpretation Comments B/C Ratio (test code = B/C Ratio) 23 6-25 [facility]anoEjjvnmhQVEOXUZEME0795-78-43 10:43:00 Test Item Value Reference Range Interpretation Comments RBC (test code = RBC) 4.18 4.20-5.40 [facility]anoVmjgyqmFIVILACYCH8600-78-47 10:43:00 Test Item Value Reference Range Interpretation Comments WBC (test code = WBC) 6.7 3.7-10.4 [facility]anoRvilcbzKYHTIMCYUS1069-56-32 10:43:00 Test Item Value Reference Range Interpretation Comments MPV (test code = MPV) 9.3 7.4-10.4 [facility]anoEoxeakiQBMDAAFLPH6658-94-27 10:43:00 Test Item Value Reference Range Interpretation Comments Platelet (test code = Platelet) 159 133-450 [facility]anoWsloxidVKKOOYDFUF6028-14-94 10:43:00 Test Item Value Reference Range Interpretation Comments RDW (test code = RDW) 12.8 11.5-14.5 [facility]anoAglhvwbYZNAAUAJHA4129-62-29 10:43:00 Test Item Value Reference Range Interpretation Comments MCH (test code = MCH) 30.7 pg 27.0-31.0 [facility]anoLpaompbWSVMUCEQTD1206-42-42 10:43:00 Test Item Value Reference Range Interpretation Comments MCV (test code = MCV) 93.8 80.0-98.0 [facility]anoLgbebinHGZSXVIDWE4112-20-60 10:43:00 Test Item Value Reference Range Interpretation Comments Hct (test code = Hct) 39.2 36.0-48.0 [facility]anoQtnmshnSASCYCJXAV1405-83-65 10:43:00 Test Item Value Reference Range Interpretation Comments Hgb (test code = Hgb) 12.8 12.0-16.0 [facility]anoCzmywjoQUIRLGGQHC3283-55-09 10:43:00 Test Item Value Reference Range Interpretation Comments MCHC (test code = MCHC) 32.8 32.0-36.0 [facility]anoCmaphfvHIGOQIKMXX0026-53-87 10:43:00 Test Item Value Reference Range Interpretation Comments Lymphocytes (test code = Lymphocytes) 21.4 20.0-40.0 [facility]anoQdzgzkkLGKMMRPXJO0678-41-24 10:43:00 Test Item Value Reference Range Interpretation Comments Segs (test code = Segs) 64.1 45.0-75.0 [facility]anoDrsaljcNPUXOZTNJI0159-51-70 10:43:00 Test Item Value Reference Range Interpretation Comments Eosinophils (test code = 3.1 See_Comment [A utomated message] The Eosinophils) system which ge nerated this result tra nsmitted reference range : <=4.0. The reference r leatha was not used to int erpret this result as normal/abnormal . [facility]anoUnjttrbWPJKHUOQBL2880-58-02 10:43:00 Test Item Value Reference Range Interpretation Comments Monocytes (test code = Monocytes) 10.9 2.0-12.0 [facility]anoIjziprbIIJIGVDHFZ1179-96-35 10:43:00 Test Item Value Reference Range Interpretation Comments Basophils (test code = 0.5 See_Comment [Aut omated message] The Basophils) system which ge nerated this result tra nsmitted reference range : <=1.0. The reference r leatha was not used to int erpret this result as normal/abnormal . [facility]anoAhjfmmeNHSVPSGZVE5409-18-39 10:43:00 Test Item Value Reference Range Interpretation Comments Basophils # (test code 0.0 See_Comment [Aut omated message] The = Basophils #) system which generated this result tra nsmitted reference range : <=0.2. The reference r leatha was not used to int erpret this result as normal/abnormal . [facility]anoRjudpnmYSLLOTREHW2088-55-45 10:43:00 Test Item Value Reference Range Interpretation Comments Eosinophils # (test code 0.2 See_Comment [A utomated message] The = Eosinophils #) system whic h generated this result tra nsmitted reference range : <=0.5. The reference r leatha was not used to int erpret this result as normal/abnormal . [facility]anoXfazvnoSKPHCEITLY3737-67-36 10:43:00 Test Item Value Reference Range Interpretation Comments Monocytes # (test code 0.7 See_Comment [Aut omated message] The = Monocytes #) system which generated this result tra nsmitted reference range : <=0.8. The reference r leatha was not used to int erpret this result as normal/abnormal . [facility]anoFnjiugqWRCMDYYLZJ2329-06-75 10:43:00 Test Item Value Reference Range Interpretation Comments Lymphocytes # (test code = Lymphocytes 1.4 1.0-5.5 #) [facility]anoHuebbliHHPMBQSFER0260-96-64 10:43:00 Test Item Value Reference Range Interpretation Comments Segs-Bands # (test code = Segs-Bands #) 4.3 1.5-8.1 [facility] [facility] 10:[facility]:00 Test Item Value Reference Range Interpretation Comments Total Protein (test code = Total 4.9 6.4-8.4 Protein) [facility]2016-07-28 10:43:00 Test Item Value Reference Range Interpretation Comments Alk Phos (test code = Alk Phos) 60 39-136 [facility]2016-07-28 10:43:00 Test Item Value Reference Range Interpretation Comments Bili Total (test code = Bili Total) 0.4 0.2-1.3 [facility]2016-07-28 10:43:00 Test Item Value Reference Range Interpretation Comments ALT (test code = ALT) 22 See_Comment [Auto mated message] The system which ge nerated this result transmit juan reference range : <=65. The reference range was not used to interpr et this result as lashonda l/abnormal. [facility]2016-07-28 10:43:00 Test Item Value Reference Range Interpretation Comments AST (test code = AST) 12 See_Comment [Auto mated message] The system which ge nerated this result transmit juan reference range : <=37. The reference range was not used to interpr et this result as lashonda l/abnormal. [facility]2016-07-28 10:43:00 Test Item Value Reference Range Interpretation Comments Albumin Lvl (test code = Albumin Lvl) 2.7 3.5-5.0 [facility]2016-07-28 10:43:00 Test Item Value Reference Range Interpretation Comments Globulin (test code = Globulin) 2.2 2.0-4.0 [facility]2016-07-28 10:43:00 Test Item Value Reference Range Interpretation Comments A/G Ratio (test code = A/G Ratio) 1.2 0.7-1.6 [facility]2016-07-28 10:43:00 Test Item Value Reference Range Interpretation Comments B/C Ratio (test code = B/C Ratio) 23 6-25 [facility]ucsiaOKHDSLTWZF9800-[facility] 10:43:00 Test Item Value Reference Range Interpretation Comments RBC (test code = RBC) 4.18 4.20-5.40 [facility]HagckwtQEETFGXUHZ3029-83-51 10:43:00 Test Item Value Reference Range Interpretation Comments WBC (test code = WBC) 6.7 3.7-10.4 [facility]anoXxzevklKWTRTTCLMS4992-83-60 10:43:00 Test Item Value Reference Range Interpretation Comments MPV (test code = MPV) 9.3 7.4-10.4 [facility]CywjnzxRNIESTSYIP8863-80-04 10:43:00 Test Item Value Reference Range Interpretation Comments Platelet (test code = Platelet) 159 133-450 [facility]anoAyfvzceGTKTBGXOED2120-27-98 10:43:00 Test Item Value Reference Range Interpretation Comments RDW (test code = RDW) 12.8 11.5-14.5 [facility]anoNfcxocwROOUQWTTDC6952-29-98 10:43:00 Test Item Value Reference Range Interpretation Comments MCH (test code = MCH) 30.7 pg 27.0-31.0 [facility]anoYuskpdoWHHKFFEPZW1658-23-41 10:43:00 Test Item Value Reference Range Interpretation Comments MCV (test code = MCV) 93.8 80.0-98.0 [facility]anoDbvjsdlTOENHKTMST8893-11-50 10:43:00 Test Item Value Reference Range Interpretation Comments Hct (test code = Hct) 39.2 36.0-48.0 [facility]anoVzkcciiZLOYULEJZM8289-84-83 10:43:00 Test Item Value Reference Range Interpretation Comments Hgb (test code = Hgb) 12.8 12.0-16.0 [facility]anoRaxrmobAQZNOWCPRF3948-60-31 10:43:00 Test Item Value Reference Range Interpretation Comments MCHC (test code = MCHC) 32.8 32.0-36.0 [facility]anoXtoywmcDHAJEUBRYS2868-84-03 10:43:00 Test Item Value Reference Range Interpretation Comments Lymphocytes (test code = Lymphocytes) 21.4 20.0-40.0 [facility]anoKdnjskoOQYYTEPGBA7718-11-60 10:43:00 Test Item Value Reference Range Interpretation Comments Segs (test code = Segs) 64.1 45.0-75.0 [facility]anoDnttugyIEENHYIVPH2229-54-83 10:43:00 Test Item Value Reference Range Interpretation Comments Eosinophils (test code = 3.1 See_Comment [A utomated message] The Eosinophils) system which ge nerated this result tra nsmitted reference range : <=4.0. The reference r leatha was not used to int erpret this result as normal/abnormal . [facility]anoPyolmjwZDOTKAYKQS3053-18-13 10:43:00 Test Item Value Reference Range Interpretation Comments Monocytes (test code = Monocytes) 10.9 2.0-12.0 [facility]anoTibvdtgXHOEURBTMY8804-00-14 10:43:00 Test Item Value Reference Range Interpretation Comments Basophils (test code = 0.5 See_Comment [Aut omated message] The Basophils) system which ge nerated this result tra nsmitted reference range : <=1.0. The reference r leatha was not used to int erpret this result as normal/abnormal . [facility]anoEblspcbEJESXFWUIX3994-63-77 10:43:00 Test Item Value Reference Range Interpretation Comments Basophils # (test code 0.0 See_Comment [Aut omated message] The = Basophils #) system which generated this result tra nsmitted reference range : <=0.2. The reference r leatha was not used to int erpret this result as normal/abnormal . [facility]anoCrrhtprLUJLDNVJPJ2190-34-82 10:43:00 Test Item Value Reference Range Interpretation Comments Eosinophils # (test code 0.2 See_Comment [A utomated message] The = Eosinophils #) system whic h generated this result tra nsmitted reference range : <=0.5. The reference r leatha was not used to int erpret this result as normal/abnormal . [facility]anoHdccuptJQMHXUAJUF3094-28-46 10:43:00 Test Item Value Reference Range Interpretation Comments Monocytes # (test code 0.7 See_Comment [Aut omated message] The = Monocytes #) system which generated this result tra nsmitted reference range : <=0.8. The reference r leatha was not used to int erpret this result as normal/abnormal . [facility]anoMqclezeOITOJXDKLL0575-50-19 10:43:00 Test Item Value Reference Range Interpretation Comments Lymphocytes # (test code = Lymphocytes 1.4 1.0-5.5 #) [facility]anoAuvodnuPAXROVJAYS5884-13-65 10:43:00 Test Item Value Reference Range Interpretation Comments Segs-Bands # (test code = Segs-Bands #) 4.3 1.5-8.1 [facility]2016-07-28 10:43:00 Test Item Value Reference Range Interpretation Comments Total Protein (test code = Total 4.9 6.4-8.4 Protein) [facility]2016-07-28 10:43:00 Test Item Value Reference Range Interpretation Comments Alk Phos (test code = Alk Phos) 60 39-136 [facility]2016-07-28 10:43:00 Test Item Value Reference Range Interpretation Comments Bili Total (test code = Bili Total) 0.4 0.2-1.3 [facility]2016-07-28 10:43:00 Test Item Value Reference Range Interpretation Comments ALT (test code = ALT) 22 See_Comment [Auto mated message] The system which ge nerated this result transmit juan reference range : <=65. The reference range was not used to interpr et this result as lashonda l/abnormal. [facility]2016-07-28 10:43:00 Test Item Value Reference Range Interpretation Comments AST (test code = AST) 12 See_Comment [Auto mated message] The system which ge nerated this result transmit juan reference range : <=37. The reference range was not used to interpr et this result as lashonda l/abnormal. [facility]2016-07-28 10:43:00 Test Item Value Reference Range Interpretation Comments Albumin Lvl (test code = Albumin Lvl) 2.7 3.5-5.0 [facility]2016-07-28 10:43:00 Test Item Value Reference Range Interpretation Comments Globulin (test code = Globulin) 2.2 2.0-4.0 [facility]2016-07-28 10:43:00 Test Item Value Reference Range Interpretation Comments A/G Ratio (test code = A/G Ratio) 1.2 0.7-1.6 [facility]2016-07-28 10:43:00 Test Item Value Reference Range Interpretation Comments B/C Ratio (test code = B/C Ratio) 23 6-25 [facility]anoIydcnxdGYLFZUWMFX9950-17-30 10:43:00 Test Item Value Reference Range Interpretation Comments RBC (test code = RBC) 4.18 4.20-5.40 [facility]anoQghxnfhUWEBLOPPFK5541-06-52 10:43:00 Test Item Value Reference Range Interpretation Comments WBC (test code = WBC) 6.7 3.7-10.4 [facility]anoOghbkfdEYQEGMVDHY7479-96-88 10:43:00 Test Item Value Reference Range Interpretation Comments MPV (test code = MPV) 9.3 7.4-10.4 [facility]anoOdynaiqABOHQKBHXB8798-25-80 10:43:00 Test Item Value Reference Range Interpretation Comments Platelet (test code = Platelet) 159 133-450 [facility]anoHmohcbcQKQNYOWAFB0450-45-49 10:43:00 Test Item Value Reference Range Interpretation Comments RDW (test code = RDW) 12.8 11.5-14.5 [facility]anoRycsoqgITRTXFSAKV8306-56-80 10:43:00 Test Item Value Reference Range Interpretation Comments MCH (test code = MCH) 30.7 pg 27.0-31.0 [facility]anoHturxzgVFDHJANBMI2340-75-74 10:43:00 Test Item Value Reference Range Interpretation Comments MCV (test code = MCV) 93.8 80.0-98.0 [facility]anoVygdinjPQTHLIYHMT8549-89-84 10:43:00 Test Item Value Reference Range Interpretation Comments Hct (test code = Hct) 39.2 36.0-48.0 [facility]anoZacnpsyTRLOPJPGPK9885-65-17 10:43:00 Test Item Value Reference Range Interpretation Comments Hgb (test code = Hgb) 12.8 12.0-16.0 [facility]anoZbpkfikZHERGROMBO4639-13-15 10:43:00 Test Item Value Reference Range Interpretation Comments MCHC (test code = MCHC) 32.8 32.0-36.0 [facility]anoUzxfopwQFMKZTFCLS1286-49-36 10:43:00 Test Item Value Reference Range Interpretation Comments Lymphocytes (test code = Lymphocytes) 21.4 20.0-40.0 [facility]anoVloholmBQLTVRHNIT9153-51-51 10:43:00 Test Item Value Reference Range Interpretation Comments Segs (test code = Segs) 64.1 45.0-75.0 [facility]anoDyzjtokJQELYITYUR1409-68-05 10:43:00 Test Item Value Reference Range Interpretation Comments Eosinophils (test code = 3.1 See_Comment [A utomated message] The Eosinophils) system which ge nerated this result tra nsmitted reference range : <=4.0. The reference r leatha was not used to int erpret this result as normal/abnormal . [facility]anoFdkltcsDFVOHDXHVJ5728-82-06 10:43:00 Test Item Value Reference Range Interpretation Comments Monocytes (test code = Monocytes) 10.9 2.0-12.0 [facility]anoFqjzmlxXGJBKGFDPW0899-87-10 10:43:00 Test Item Value Reference Range Interpretation Comments Basophils (test code = 0.5 See_Comment [Aut omated message] The Basophils) system which ge nerated this result tra nsmitted reference range : <=1.0. The reference r leatha was not used to int erpret this result as normal/abnormal . [facility]anoPwmdexaLHXQZZPYDV5549-46-34 10:43:00 Test Item Value Reference Range Interpretation Comments Basophils # (test code 0.0 See_Comment [Aut omated message] The = Basophils #) system which generated this result tra nsmitted reference range : <=0.2. The reference r leatha was not used to int erpret this result as normal/abnormal . [facility]anoBqacukoDIUIZSLCRW7358-85-17 10:43:00 Test Item Value Reference Range Interpretation Comments Eosinophils # (test code 0.2 See_Comment [A utomated message] The = Eosinophils #) system whic h generated this result tra nsmitted reference range : <=0.5. The reference r leatha was not used to int erpret this result as normal/abnormal . [facility]anoMxyazjmPHHNYXACOE9444-00-55 10:43:00 Test Item Value Reference Range Interpretation Comments Monocytes # (test code 0.7 See_Comment [Aut omated message] The = Monocytes #) system which generated this result tra nsmitted reference range : <=0.8. The reference r leatha was not used to int erpret this result as normal/abnormal . [facility]anoOeasxkkYNAETREPFR4397-35-41 10:43:00 Test Item Value Reference Range Interpretation Comments Lymphocytes # (test code = Lymphocytes 1.4 1.0-5.5 #) [facility]anoMqkctxdUUGHCTPKCN9223-28-65 10:43:00 Test Item Value Reference Range Interpretation Comments Segs-Bands # (test code = Segs-Bands #) 4.3 1.5-8.1 [facility]2016-07-26 23:48:00 Test Item Value Reference Range Interpretation Comments Magnesium Lvl (test code = Magnesium 1.8 1.8-2.4 Lvl) [facility]2016-07-26 23:48:00 Test Item Value Reference Range Interpretation Comments Phosphorus (test code = Phosphorus) 2.0 2.5-4.5 [facility]anoRbppyfnFKCINROKTI6761-52-48 23:48:00 Test Item Value Reference Range Interpretation Comments Basophils # (test code 0.0 See_Comment [Aut omated message] The = Basophils #) system which generated this result tra nsmitted reference range : <=0.2. The reference r leatha was not used to int erpret this result as normal/abnormal . [facility]anoRczooygBMRAZAZUJJ3337-14-85 23:48:00 Test Item Value Reference Range Interpretation Comments Macrocyte (test code = 1+ *ABN*(01/11/16 Macrocyte) 6:48 PM) [facility]anoOhdzyuqSFGEDGJOIW2300-11-37 23:48:00 Test Item Value Reference Range Interpretation Comments INR (test code = INR) 0.99 0.85-1.17 [facility]anoDlvtveaKSONUSAIRI2803-68-56 23:48:00 Test Item Value Reference Range Interpretation Comments PTT (test code = PTT) 23.5 s 22.9-35.8 [facility]anoBvievssSCZOPIYASO0430-68-64 23:48:00 Test Item Value Reference Range Interpretation Comments PT (test code = PT) 13.4 s 12.0-14.7 [facility]2016-07-26 23:48:00 Test Item Value Reference Range Interpretation Comments Magnesium Lvl (test code = Magnesium 1.8 1.8-2.4 Lvl) [facility]2016-07-26 23:48:00 Test Item Value Reference Range Interpretation Comments Phosphorus (test code = Phosphorus) 2.0 2.5-4.5 [facility]anoMqvnipaWUHQAVVFCT1209-37-87 23:48:00 Test Item Value Reference Range Interpretation Comments Basophils # (test code 0.0 See_Comment [Aut omated message] The = Basophils #) system which generated this result tra nsmitted reference range : <=0.2. The reference r leatha was not used to int erpret this result as normal/abnormal . [place] 088186-07-26 23:48:00 Test Item Value Reference Range Interpretation Comments Macrocyte (test code = 1+ *ABN*(01/11/16 Macrocyte) 6:48 PM) [place] 088186-07-26 23:48:00 Test Item Value Reference Range Interpretation Comments INR (test code = INR) 0.99 0.85-1.17 [place] 088186-07-26 23:48:00 Test Item Value Reference Range Interpretation Comments PTT (test code = PTT) 23.5 s 22.9-35.8 [place] 088186-07-26 23:48:00 Test Item Value Reference Range Interpretation Comments PT (test code = PT) 13.4 s 12.0-14.7 [facility]2016-07-26 23:48:00 Test Item Value Reference Range Interpretation Comments Magnesium Lvl (test code = Magnesium 1.8 1.8-2.4 Lvl) [facility]2016-07-26 23:48:00 Test Item Value Reference Range Interpretation Comments Phosphorus (test code = Phosphorus) 2.0 2.5-4.5 [place] 088186-07-26 23:48:00 Test Item Value Reference Range Interpretation Comments Basophils # (test code 0.0 See_Comment [Aut omated message] The = Basophils #) system which generated this result tra nsmitted reference range : <=0.2. The reference r leatha was not used to int erpret this result as normal/abnormal . [facility]anoRwngudgRSSALQJDCO1866-35-39 23:48:00 Test Item Value Reference Range Interpretation Comments Macrocyte (test code = 1+ *ABN*(01/11/16 Macrocyte) 6:48 PM) [facility]anoJsnzsuzCOQQZKFQOD9012-40-03 23:48:00 Test Item Value Reference Range Interpretation Comments INR (test code = INR) 0.99 0.85-1.17 [facility]anoOlrtmoyAQBACYIODG8471-16-99 23:48:00 Test Item Value Reference Range Interpretation Comments PTT (test code = PTT) 23.5 s 22.9-35.8 [facility]anoXncfmjyXEPCMOXRDP8869-91-57 23:48:00 Test Item Value Reference Range Interpretation Comments PT (test code = PT) 13.4 s 12.0-14.7 [facility]2016-07-26 23:48:00 Test Item Value Reference Range Interpretation Comments Magnesium Lvl (test code = Magnesium 1.8 1.8-2.4 Lvl) [facility]2016-07-26 23:48:00 Test Item Value Reference Range Interpretation Comments Phosphorus (test code = Phosphorus) 2.0 2.5-4.5 [facility]anoOrnocmmYZTCGQGKQO8367-15-11 23:48:00 Test Item Value Reference Range Interpretation Comments Basophils # (test code 0.0 See_Comment [Aut omated message] The = Basophils #) system which generated this result tra nsmitted reference range : <=0.2. The reference r leatha was not used to int erpret this result as normal/abnormal . [facility]anoUjwqfznKFLJSJAGIG0559-64-69 23:48:00 Test Item Value Reference Range Interpretation Comments Macrocyte (test code = 1+ *ABN*(01/11/16 Macrocyte) 6:48 PM) [facility]anoQdbpysyCYBBQNOJJE5030-34-71 23:48:00 Test Item Value Reference Range Interpretation Comments INR (test code = INR) 0.99 0.85-1.17 [facility]anoDlwfagfWYIOODRXEX4189-17-16 23:48:00 Test Item Value Reference Range Interpretation Comments PTT (test code = PTT) 23.5 s 22.9-35.8 [facility]anoMjczqkyNOQSYGGDLJ8082-58-05 23:48:00 Test Item Value Reference Range Interpretation Comments PT (test code = PT) 13.4 s 12.0-14.7 [facility]2016-07-26 23:48:00 Test Item Value Reference Range Interpretation Comments Magnesium Lvl (test code = Magnesium 1.8 1.8-2.4 Lvl) [facility]2016-07-26 23:48:00 Test Item Value Reference Range Interpretation Comments Phosphorus (test code = Phosphorus) 2.0 2.5-4.5 [facility]anoBekkbeqMIIMENSYHK6474-42-63 23:48:00 Test Item Value Reference Range Interpretation Comments Basophils # (test code 0.0 See_Comment [Aut omated message] The = Basophils #) system which generated this result tra nsmitted reference range : <=0.2. The reference r leatha was not used to int erpret this result as normal/abnormal . [place] 088186-07-26 23:48:00 Test Item Value Reference Range Interpretation Comments Macrocyte (test code = 1+ *ABN*(01/11/16 Macrocyte) 6:48 PM) [place] 088186-07-26 23:48:00 Test Item Value Reference Range Interpretation Comments INR (test code = INR) 0.99 0.85-1.17 [place] 088186-07-26 23:48:00 Test Item Value Reference Range Interpretation Comments PTT (test code = PTT) 23.5 s 22.9-35.8 [place] 088186-07-26 23:48:00 Test Item Value Reference Range Interpretation Comments PT (test code = PT) 13.4 s 12.0-14.7 [facility]2016-07-26 23:48:00 Test Item Value Reference Range Interpretation Comments Magnesium Lvl (test code = Magnesium 1.8 1.8-2.4 Lvl) [facility]2016-07-26 23:48:00 Test Item Value Reference Range Interpretation Comments Phosphorus (test code = Phosphorus) 2.0 2.5-4.5 [facility]anoHmaiaenGQRCSTBQIG4573-86-78 23:48:00 Test Item Value Reference Range Interpretation Comments Basophils # (test code 0.0 See_Comment [Aut omated message] The = Basophils #) system which generated this result tra nsmitted reference range : <=0.2. The reference r leatha was not used to int erpret this result as normal/abnormal . [facility]anoVxlyedjYWGYKPSDRX1055-44-51 23:48:00 Test Item Value Reference Range Interpretation Comments Macrocyte (test code = 1+ *ABN*(01/11/16 Macrocyte) 6:48 PM) [facility]anoLddykljVTSDZZJBPX6719-81-30 23:48:00 Test Item Value Reference Range Interpretation Comments INR (test code = INR) 0.99 0.85-1.17 [facility]anoYfwrnvmOCTKLAFOOQ2960-94-60 23:48:00 Test Item Value Reference Range Interpretation Comments PTT (test code = PTT) 23.5 s 22.9-35.8 [facility]anoEmiseddQWMWAQMQSC0037-02-09 23:48:00 Test Item Value Reference Range Interpretation Comments PT (test code = PT) 13.4 s 12.0-14.7 [facility]2016-07-26 23:48:00 Test Item Value Reference Range Interpretation Comments Magnesium Lvl (test code = Magnesium 1.8 1.8-2.4 Lvl) [facility]2016-07-26 23:48:00 Test Item Value Reference Range Interpretation Comments Phosphorus (test code = Phosphorus) 2.0 2.5-4.5 [facility]anoKqdagjrWQEOJWMOFY3766-96-49 23:48:00 Test Item Value Reference Range Interpretation Comments Basophils # (test code 0.0 See_Comment [Aut omated message] The = Basophils #) system which generated this result tra nsmitted reference range : <=0.2. The reference r leatha was not used to int erpret this result as normal/abnormal . [facility]anoWhaijitGGHDCRKUNL9802-82-01 23:48:00 Test Item Value Reference Range Interpretation Comments Macrocyte (test code = 1+ *ABN*(01/11/16 Macrocyte) 6:48 PM) [facility]anoEugadbiPXIJXURSVL2844-61-73 23:48:00 Test Item Value Reference Range Interpretation Comments INR (test code = INR) 0.99 0.85-1.17 [facility]anoLgpcobpACSSTFUGIN0301-69-17 23:48:00 Test Item Value Reference Range Interpretation Comments PTT (test code = PTT) 23.5 s 22.9-35.8 [place] 088186-07-26 23:48:00 Test Item Value Reference Range Interpretation Comments PT (test code = PT) 13.4 s 12.0-14.7 [facility] GLUCOSE [id number] 12:49:00 Test Item Value Reference Range Interpretation Comments Comment1 (test code = Comment1) Notify RN/ [facility] GLUCOSE [id number] 12:49:00 Test Item Value Reference Range Interpretation Comments Gluc POC Lifscn (test code = Gluc POC 308 70-99 H Lifscn) [facility] GLUCOSE [id number] 12:49:00 Test Item Value Reference Range Interpretation Comments Comment1 (test code = Comment1) Notify RN/ [facility] GLUCOSE [id number] 12:49:00 Test Item Value Reference Range Interpretation Comments Gluc POC Lifscn (test code = Gluc POC 308 70-99 H Lifscn) [facility] GLUCOSE [id number] 12:49:00 Test Item Value Reference Range Interpretation Comments Comment1 (test code = Comment1) Notify RN/ [facility] GLUCOSE [id number] 12:49:00 Test Item Value Reference Range Interpretation Comments Gluc POC Lifscn (test code = Gluc POC 308 70-99 H Lifscn) [facility] GLUCOSE [id number] 12:49:00 Test Item Value Reference Range Interpretation Comments Comment1 (test code = Comment1) Notify RN/ [facility] GLUCOSE [id number] 12:49:00 Test Item Value Reference Range Interpretation Comments Gluc POC Lifscn (test code = Gluc POC 308 70-99 H Lifscn) [facility] GLUCOSE [id number] 12:49:00 Test Item Value Reference Range Interpretation Comments Comment1 (test code = Comment1) Notify RN/ [facility] GLUCOSE [id number] 12:49:00 Test Item Value Reference Range Interpretation Comments Gluc POC Lifscn (test code = Gluc POC 308 70-99 H Lifscn) [facility] GLUCOSE [id number] 12:49:00 Test Item Value Reference Range Interpretation Comments Comment1 (test code = Comment1) Notify RN/ [facility] GLUCOSE [id number] 12:49:00 Test Item Value Reference Range Interpretation Comments Gluc POC Lifscn (test code = Gluc POC 308 70-99 H Lifscn) [facility] GLUCOSE [id number] 12:49:00 Test Item Value Reference Range Interpretation Comments Comment1 (test code = Comment1) Notify RN/ [facility] GLUCOSE [id number] 12:49:00 Test Item Value Reference Range Interpretation Comments Gluc POC Lifscn (test code = Gluc POC 308 70-99 H Lifscn) [facility] GLUCOSE [id number] 08:39:00 Test Item Value Reference Range Interpretation Comments Comment1 (test code = Comment1) Notify RN/ [facility] GLUCOSE [id number] 08:39:00 Test Item Value Reference Range Interpretation Comments Gluc POC Lifscn (test code = Gluc POC 159 70-99 H Lifscn) [facility] GLUCOSE [id number] 08:39:00 Test Item Value Reference Range Interpretation Comments Comment1 (test code = Comment1) Notify RN/ [facility] GLUCOSE [id number] 08:39:00 Test Item Value Reference Range Interpretation Comments Gluc POC Lifscn (test code = Gluc POC 159 70-99 H Lifscn) [facility] GLUCOSE [id number] 08:39:00 Test Item Value Reference Range Interpretation Comments Comment1 (test code = Comment1) Notify RN/ [facility] GLUCOSE [id number] 08:39:00 Test Item Value Reference Range Interpretation Comments Gluc POC Lifscn (test code = Gluc POC 159 70-99 H Lifscn) [facility] GLUCOSE [id number] 08:39:00 Test Item Value Reference Range Interpretation Comments Comment1 (test code = Comment1) Notify RN/ [facility] GLUCOSE [id number] 08:39:00 Test Item Value Reference Range Interpretation Comments Gluc POC Lifscn (test code = Gluc POC 159 70-99 H Lifscn) [facility] GLUCOSE [id number] 08:39:00 Test Item Value Reference Range Interpretation Comments Comment1 (test code = Comment1) Notify RN/ [facility] GLUCOSE [id number] 08:39:00 Test Item Value Reference Range Interpretation Comments Gluc POC Lifscn (test code = Gluc POC 159 70-99 H Lifscn) [facility] GLUCOSE [id number] 08:39:00 Test Item Value Reference Range Interpretation Comments Comment1 (test code = Comment1) Notify RN/ [facility] GLUCOSE [id number] 08:39:00 Test Item Value Reference Range Interpretation Comments Gluc POC Lifscn (test code = Gluc POC 159 70-99 H Lifscn) [facility] GLUCOSE [id number] 08:39:00 Test Item Value Reference Range Interpretation Comments Comment1 (test code = Comment1) Notify RN/ [facility] GLUCOSE [id number] 08:39:00 Test Item Value Reference Range Interpretation Comments Gluc POC Lifscn (test code = Gluc POC 159 70-99 H Lifscn) [facility]KrrswcyUUJFCRILX7148-03-23 07:19:00 Test Item Value Reference Range Interpretation Comments AGAP (test code = AGAP) 14.3 10.0-20.0 N [facility] NorthwestBkmygonGOVCSOUTD7850-97-26 07:19:00 Test Item Value Reference Range Interpretation Comments eGFR (test code = eGFR) 75 [facility] NorthwestOiiftliETCFKMNOV0592-53-88 07:19:00 Test Item Value Reference Range Interpretation Comments Sodium Lvl (test code = Sodium Lvl) 139 135-145 N [facility] NorthwestXbqgrrnDHZTZYFLF8724-17-46 07:19:00 Test Item Value Reference Range Interpretation Comments Chloride Lvl (test code = Chloride Lvl) 104 95-109 N [facility] NorthwestMxizurvSUDBQCVYC0204-35-60 07:19:00 Test Item Value Reference Range Interpretation Comments CO2 (test code = CO2) 25 24-32 N [facility] NorthwestDjmrziwQZWMPFGSW5797-08-34 07:19:00 Test Item Value Reference Range Interpretation Comments Calcium Lvl (test code = Calcium Lvl) 10.7 8.5-10.5 H [facility] NorthwestAgddndpZKEFFRTRV2721-03-10 07:19:00 Test Item Value Reference Range Interpretation Comments Potassium Lvl (test code = Potassium 4.3 3.5-5.1 N Lvl) [facility] NorthwestFvlxenuSFKTXMBEK2018-55-49 07:19:00 Test Item Value Reference Range Interpretation Comments Glucose Lvl (test code = Glucose Lvl) 262 70-99 H [facility] NorthwestUrrgqswLODIVVCDL8785-66-77 07:19:00 Test Item Value Reference Range Interpretation Comments Creatinine Lvl (test code = Creatinine 0.8 0.5-1.4 N Lvl) [facility] NorthwestTyahwvzRMFSDZUSC1305-09-91 07:19:00 Test Item Value Reference Range Interpretation Comments BUN (test code = BUN) 20 7-22 N [facility]AyjhiifNJWQSWRIYQ9476-63-39 07:19:00 Test Item Value Reference Range Interpretation Comments Hgb (test code = Hgb) 14.0 12.0-16.0 N [facility]anoZpzebxlYDJYIBFCOO2630-87-66 07:19:00 Test Item Value Reference Range Interpretation Comments Hct (test code = Hct) 42.5 36.0-48.0 N [facility]anoVywdozpDHOGGPFNAI9881-42-91 07:19:00 Test Item Value Reference Range Interpretation Comments MCV (test code = MCV) 92.3 81.0-99.0 N [facility]anoBhsfihnDGQHFVLQBD0406-43-88 07:19:00 Test Item Value Reference Range Interpretation Comments MCH (test code = MCH) 30.5 pg 27.0-31.0 N [facility]anoNlcmenoAVMQSDHXWX1297-97-25 07:19:00 Test Item Value Reference Range Interpretation Comments MCHC (test code = MCHC) 33.0 32.0-36.0 N [facility]anoCqzponzLCIDLHLELG5987-25-99 07:19:00 Test Item Value Reference Range Interpretation Comments RDW (test code = RDW) 14.6 11.5-14.5 H [facility]anoFtguhkuFFSVMKBKCK6848-20-48 07:19:00 Test Item Value Reference Range Interpretation Comments Platelet (test code = Platelet) 215 133-450 N [facility]anoRxmivjrUWBYMOXXLU2254-24-32 07:19:00 Test Item Value Reference Range Interpretation Comments MPV (test code = MPV) 10.0 7.4-10.4 N [facility]anoAkuhbegWYGIMYTJSH9163-52-04 07:19:00 Test Item Value Reference Range Interpretation Comments RBC (test code = RBC) 4.60 4.20-5.40 N [facility]anoOwnqvrgKLTVDPTCPW8883-00-11 07:19:00 Test Item Value Reference Range Interpretation Comments WBC (test code = WBC) 13.0 3.7-10.4 H [facility] NorthwestVfvbyjoLZRHWXICD8727-66-42 07:19:00 Test Item Value Reference Range Interpretation Comments AGAP (test code = AGAP) 14.3 10.0-20.0 N [facility] NorthwestClkfpgdEUCSZLMKL6660-97-20 07:19:00 Test Item Value Reference Range Interpretation Comments eGFR (test code = eGFR) 75 [facility] NorthwestVwqzncrTDQFTZZCI5681-05-91 07:19:00 Test Item Value Reference Range Interpretation Comments Sodium Lvl (test code = Sodium Lvl) 139 135-145 N [facility] NorthwestZtmbfprIZIVSICSB7153-16-98 07:19:00 Test Item Value Reference Range Interpretation Comments Chloride Lvl (test code = Chloride Lvl) 104 95-109 N [facility] NorthwestHzcvvaxXLYWQWIXX6897-68-42 07:19:00 Test Item Value Reference Range Interpretation Comments CO2 (test code = CO2) 25 24-32 N [facility] NorthwestXpmqizlFTSWNSPCI3603-32-70 07:19:00 Test Item Value Reference Range Interpretation Comments Calcium Lvl (test code = Calcium Lvl) 10.7 8.5-10.5 H [facility] NorthwestIlqgaxjHJKPCKZEW6890-48-87 07:19:00 Test Item Value Reference Range Interpretation Comments Potassium Lvl (test code = Potassium 4.3 3.5-5.1 N Lvl) [facility] NorthwestVppafopQPODTCHXX2225-46-50 07:19:00 Test Item Value Reference Range Interpretation Comments Glucose Lvl (test code = Glucose Lvl) 262 70-99 H [facility] NorthwestVpvchvmCGEZMNPCG2228-11-70 07:19:00 Test Item Value Reference Range Interpretation Comments Creatinine Lvl (test code = Creatinine 0.8 0.5-1.4 N Lvl) [facility] NorthwestOuabuinCDANOIMQP5902-99-40 07:19:00 Test Item Value Reference Range Interpretation Comments BUN (test code = BUN) 20 7-22 N [facility]anoZwyrahfFKCSPHMJXR7229-26-97 07:19:00 Test Item Value Reference Range Interpretation Comments Hgb (test code = Hgb) 14.0 12.0-16.0 N [facility]anoQfbargnNFREPQGUSC7555-87-76 07:19:00 Test Item Value Reference Range Interpretation Comments Hct (test code = Hct) 42.5 36.0-48.0 N [facility]anoHwqkelrZUEJDNQEHT9613-87-16 07:19:00 Test Item Value Reference Range Interpretation Comments MCV (test code = MCV) 92.3 81.0-99.0 N [facility]anoTxubxvwHEYBQCVMHC7490-33-83 07:19:00 Test Item Value Reference Range Interpretation Comments MCH (test code = MCH) 30.5 pg 27.0-31.0 N [facility]anoEgtdmzgGCPQMWZFGQ3131-04-85 07:19:00 Test Item Value Reference Range Interpretation Comments MCHC (test code = MCHC) 33.0 32.0-36.0 N [facility]anoZllzwahHCIZKEUNDU5160-89-05 07:19:00 Test Item Value Reference Range Interpretation Comments RDW (test code = RDW) 14.6 11.5-14.5 H [facility]anoMbnreahANOSRLWKAX3158-84-60 07:19:00 Test Item Value Reference Range Interpretation Comments Platelet (test code = Platelet) 215 133-450 N [facility]anoJwkfotoEZEQXFAGLB5804-81-90 07:19:00 Test Item Value Reference Range Interpretation Comments MPV (test code = MPV) 10.0 7.4-10.4 N [facility]anoOqtfaqdJNIRAMFNZE6959-87-91 07:19:00 Test Item Value Reference Range Interpretation Comments RBC (test code = RBC) 4.60 4.20-5.40 N [facility]anoPkzrldyXSYTVMXCST2310-03-97 07:19:00 Test Item Value Reference Range Interpretation Comments WBC (test code = WBC) 13.0 3.7-10.4 H [facility] NorthwestIyoccvnHKRDKSNEW6679-69-15 07:19:00 Test Item Value Reference Range Interpretation Comments AGAP (test code = AGAP) 14.3 10.0-20.0 N [facility] NorthwestBbocjocEWEAXAECJ1481-81-46 07:19:00 Test Item Value Reference Range Interpretation Comments eGFR (test code = eGFR) 75 [facility] NorthwestKbawyfzJIDJFLIEY2004-19-34 07:19:00 Test Item Value Reference Range Interpretation Comments Sodium Lvl (test code = Sodium Lvl) 139 135-145 N [facility] NorthwestZfnsdnwSUFRZFCEY3571-09-23 07:19:00 Test Item Value Reference Range Interpretation Comments Chloride Lvl (test code = Chloride Lvl) 104 95-109 N [facility] NorthwestOzveulrYNHRFFJOB2958-62-87 07:19:00 Test Item Value Reference Range Interpretation Comments CO2 (test code = CO2) 25 24-32 N [facility] NorthwestMupnnkpFLPFNPEDZ5705-73-32 07:19:00 Test Item Value Reference Range Interpretation Comments Calcium Lvl (test code = Calcium Lvl) 10.7 8.5-10.5 H [facility] NorthwestHuktxahENNOZVIAC5867-46-82 07:19:00 Test Item Value Reference Range Interpretation Comments Potassium Lvl (test code = Potassium 4.3 3.5-5.1 N Lvl) [facility] NorthwestWmgqzbaCUOLEPKDX6028-36-68 07:19:00 Test Item Value Reference Range Interpretation Comments Glucose Lvl (test code = Glucose Lvl) 262 70-99 H [facility] NorthwestDyczbiaSXQHWXTSY2926-12-23 07:19:00 Test Item Value Reference Range Interpretation Comments Creatinine Lvl (test code = Creatinine 0.8 0.5-1.4 N Lvl) [facility] NorthwestTbrlzqvTYKKGOXOY2786-70-94 07:19:00 Test Item Value Reference Range Interpretation Comments BUN (test code = BUN) 20 7-22 N [facility]anoDszxktpRAJFNAWQRE3080-34-99 07:19:00 Test Item Value Reference Range Interpretation Comments Hgb (test code = Hgb) 14.0 12.0-16.0 N [facility]anoGkpropkDGVFGJOQCR5151-62-46 07:19:00 Test Item Value Reference Range Interpretation Comments Hct (test code = Hct) 42.5 36.0-48.0 N [facility]anoBicdkptSVGLQQOAAO4038-99-26 07:19:00 Test Item Value Reference Range Interpretation Comments MCV (test code = MCV) 92.3 81.0-99.0 N [facility]anoRmmosckIPXAZMLTNL2669-32-70 07:19:00 Test Item Value Reference Range Interpretation Comments MCH (test code = MCH) 30.5 pg 27.0-31.0 N [facility]anoMqzzkbyVARFWADYCM4469-51-73 07:19:00 Test Item Value Reference Range Interpretation Comments MCHC (test code = MCHC) 33.0 32.0-36.0 N [facility]anoKzxwtpqOGBDFIBJPS4598-30-77 07:19:00 Test Item Value Reference Range Interpretation Comments RDW (test code = RDW) 14.6 11.5-14.5 H [facility] PlanoZxalggfGLWYJXTUZO1507-62-53 07:19:00 Test Item Value Reference Range Interpretation Comments Platelet (test code = Platelet) 215 133-450 N [facility] PlanoDzsidocEZHKDFWBGK8002-13-20 07:19:00 Test Item Value Reference Range Interpretation Comments MPV (test code = MPV) 10.0 7.4-10.4 N [facility]anoWswuyiqHQMEQOEAZL2512-00-62 07:19:00 Test Item Value Reference Range Interpretation Comments RBC (test code = RBC) 4.60 4.20-5.40 N [facility]anoZivjhmqCCMXAELSXN1260-98-96 07:19:00 Test Item Value Reference Range Interpretation Comments WBC (test code = WBC) 13.0 3.7-10.4 H [facility] NorthwestPfsunbqOGWBEEJOW1989-48-50 07:19:00 Test Item Value Reference Range Interpretation Comments AGAP (test code = AGAP) 14.3 10.0-20.0 N [facility] NorthwestZzfohhiHTDLODACP6575-33-01 07:19:00 Test Item Value Reference Range Interpretation Comments eGFR (test code = eGFR) 75 [facility] NorthwestTgrdlsrRRCTFYUAG4836-09-90 07:19:00 Test Item Value Reference Range Interpretation Comments Sodium Lvl (test code = Sodium Lvl) 139 135-145 N [facility] NorthwestSoexuitRIPXLZAKR6093-59-07 07:19:00 Test Item Value Reference Range Interpretation Comments Chloride Lvl (test code = Chloride Lvl) 104 95-109 N [facility] NorthwestBofxjywUZJUYWHWW8718-25-00 07:19:00 Test Item Value Reference Range Interpretation Comments CO2 (test code = CO2) 25 24-32 N [facility] NorthwestGqplufuXDZVMRDHE6769-37-99 07:19:00 Test Item Value Reference Range Interpretation Comments Calcium Lvl (test code = Calcium Lvl) 10.7 8.5-10.5 H [facility] NorthwestIsunoxvQZCTSTNRQ7234-96-82 07:19:00 Test Item Value Reference Range Interpretation Comments Potassium Lvl (test code = Potassium 4.3 3.5-5.1 N Lvl) [facility] NorthwestNyzowrlIKQFKSFRZ1770-74-92 07:19:00 Test Item Value Reference Range Interpretation Comments Glucose Lvl (test code = Glucose Lvl) 262 70-99 H [facility] NorthwestXccbqswJIXHGRJXG8788-63-06 07:19:00 Test Item Value Reference Range Interpretation Comments Creatinine Lvl (test code = Creatinine 0.8 0.5-1.4 N Lvl) [facility] NorthwestMnxvahkHYNNRUAPO7462-32-16 07:19:00 Test Item Value Reference Range Interpretation Comments BUN (test code = BUN) 20 7-22 N [facility]anoAukgfeiVAXFAYRHYX7989-69-28 07:19:00 Test Item Value Reference Range Interpretation Comments Hgb (test code = Hgb) 14.0 12.0-16.0 N [facility]anoYbwaufhDAZPBEHXOF3155-57-71 07:19:00 Test Item Value Reference Range Interpretation Comments Hct (test code = Hct) 42.5 36.0-48.0 N [facility]anoUzbtkpzNWQJPXDAXB0739-81-53 07:19:00 Test Item Value Reference Range Interpretation Comments MCV (test code = MCV) 92.3 81.0-99.0 N [facility]anoSfwencaJJSOHWUTCE1707-58-52 07:19:00 Test Item Value Reference Range Interpretation Comments MCH (test code = MCH) 30.5 pg 27.0-31.0 N [facility]anoXkafxlgLTUFELAFNS6899-39-08 07:19:00 Test Item Value Reference Range Interpretation Comments MCHC (test code = MCHC) 33.0 32.0-36.0 N [facility]anoZjlxwqzTAUGKESWSM4415-79-27 07:19:00 Test Item Value Reference Range Interpretation Comments RDW (test code = RDW) 14.6 11.5-14.5 H [facility]anoGclorplQJJAVCFAPW9879-92-05 07:19:00 Test Item Value Reference Range Interpretation Comments Platelet (test code = Platelet) 215 133-450 N [facility]anoLzjzqseQZVNTURLBC7803-22-54 07:19:00 Test Item Value Reference Range Interpretation Comments MPV (test code = MPV) 10.0 7.4-10.4 N [facility]anoHvvukpxPSQDVBWZXR8353-62-71 07:19:00 Test Item Value Reference Range Interpretation Comments RBC (test code = RBC) 4.60 4.20-5.40 N [facility]anoBhbqolfTWDPEFLKHL2836-10-68 07:19:00 Test Item Value Reference Range Interpretation Comments WBC (test code = WBC) 13.0 3.7-10.4 H [facility] NorthwestAoyufklBJJYNHAHG5084-33-49 07:19:00 Test Item Value Reference Range Interpretation Comments AGAP (test code = AGAP) 14.3 10.0-20.0 N [facility] NorthwestKrergqnVFCOIGXQG7169-78-35 07:19:00 Test Item Value Reference Range Interpretation Comments eGFR (test code = eGFR) 75 [facility] NorthwestUxyblsfVIRWPQRYZ4354-19-88 07:19:00 Test Item Value Reference Range Interpretation Comments Sodium Lvl (test code = Sodium Lvl) 139 135-145 N [facility] NorthwestOhaiywmMWVTUJAHH2129-41-24 07:19:00 Test Item Value Reference Range Interpretation Comments Chloride Lvl (test code = Chloride Lvl) 104 95-109 N [facility] NorthwestLaybrwyBPXVCENEQ2873-06-08 07:19:00 Test Item Value Reference Range Interpretation Comments CO2 (test code = CO2) 25 24-32 N [facility] NorthwestEpqxoswVWBMIYSOE7184-99-14 07:19:00 Test Item Value Reference Range Interpretation Comments Calcium Lvl (test code = Calcium Lvl) 10.7 8.5-10.5 H [facility] NorthwestMottfcfHODJXGPXR7070-72-47 07:19:00 Test Item Value Reference Range Interpretation Comments Potassium Lvl (test code = Potassium 4.3 3.5-5.1 N Lvl) [facility] NorthwestOfvlfkgMALOWFGKW3467-21-86 07:19:00 Test Item Value Reference Range Interpretation Comments Glucose Lvl (test code = Glucose Lvl) 262 70-99 H [facility] NorthwestBiiyfdeJSGOECOGT6404-92-29 07:19:00 Test Item Value Reference Range Interpretation Comments Creatinine Lvl (test code = Creatinine 0.8 0.5-1.4 N Lvl) [facility] NorthwestZpvedtrNRDCGQQPK2897-56-14 07:19:00 Test Item Value Reference Range Interpretation Comments BUN (test code = BUN) 20 7-22 N [facility]anoYtlvvmgYWHDIITLTJ7714-47-64 07:19:00 Test Item Value Reference Range Interpretation Comments Hgb (test code = Hgb) 14.0 12.0-16.0 N [facility]anoGepvebbSCQRERFYES8716-34-02 07:19:00 Test Item Value Reference Range Interpretation Comments Hct (test code = Hct) 42.5 36.0-48.0 N [facility]anoOwkhfavHAUEFCSYDM8771-75-17 07:19:00 Test Item Value Reference Range Interpretation Comments MCV (test code = MCV) 92.3 81.0-99.0 N [facility]anoFsprulbPJJIAKQXTI6109-51-36 07:19:00 Test Item Value Reference Range Interpretation Comments MCH (test code = MCH) 30.5 pg 27.0-31.0 N [facility]anoItedoswDYFHIFDVEO7666-98-58 07:19:00 Test Item Value Reference Range Interpretation Comments MCHC (test code = MCHC) 33.0 32.0-36.0 N [facility]anoIkrvydqJLCBQRTBUV7956-37-83 07:19:00 Test Item Value Reference Range Interpretation Comments RDW (test code = RDW) 14.6 11.5-14.5 H [facility]anoQfzjysxSDOFJQBCMY2233-33-73 07:19:00 Test Item Value Reference Range Interpretation Comments Platelet (test code = Platelet) 215 133-450 N [facility]anoAkpdprrQWQEMDIMZO7530-19-02 07:19:00 Test Item Value Reference Range Interpretation Comments MPV (test code = MPV) 10.0 7.4-10.4 N [facility]anoWkfvztlDKZWMUIDVT4714-12-15 07:19:00 Test Item Value Reference Range Interpretation Comments RBC (test code = RBC) 4.60 4.20-5.40 N [facility]anoQyscezvDKUGWHRKTL8037-43-47 07:19:00 Test Item Value Reference Range Interpretation Comments WBC (test code = WBC) 13.0 3.7-10.4 H [facility] NorthwestCkntfpoDAGJOIEYV9331-82-30 07:19:00 Test Item Value Reference Range Interpretation Comments AGAP (test code = AGAP) 14.3 10.0-20.0 N [facility] NorthwestZulptqnVADLFNBXO5308-32-38 07:19:00 Test Item Value Reference Range Interpretation Comments eGFR (test code = eGFR) 75 [facility] NorthwestRvtuasqQVTFAHCAK7889-99-49 07:19:00 Test Item Value Reference Range Interpretation Comments Sodium Lvl (test code = Sodium Lvl) 139 135-145 N [facility] NorthwestIgluczbDBLVEMIHS8370-66-08 07:19:00 Test Item Value Reference Range Interpretation Comments Chloride Lvl (test code = Chloride Lvl) 104 95-109 N [facility] NorthwestZpdeswfVXDBLORYU5527-92-12 07:19:00 Test Item Value Reference Range Interpretation Comments CO2 (test code = CO2) 25 24-32 N [facility] NorthwestYsiaudbDXHFGKYJK7350-07-21 07:19:00 Test Item Value Reference Range Interpretation Comments Calcium Lvl (test code = Calcium Lvl) 10.7 8.5-10.5 H [facility] NorthwestVngbgvvAFZBBLBTL8403-64-89 07:19:00 Test Item Value Reference Range Interpretation Comments Potassium Lvl (test code = Potassium 4.3 3.5-5.1 N Lvl) [facility] NorthwestIdpetfwLWCUYIFAY7340-64-93 07:19:00 Test Item Value Reference Range Interpretation Comments Glucose Lvl (test code = Glucose Lvl) 262 70-99 H [facility] NorthwestQjljjigLJJRAUMIU3377-45-33 07:19:00 Test Item Value Reference Range Interpretation Comments Creatinine Lvl (test code = Creatinine 0.8 0.5-1.4 N Lvl) [facility] NorthwestYcctlauHTDWUPSQT3666-94-23 07:19:00 Test Item Value Reference Range Interpretation Comments BUN (test code = BUN) 20 7-22 N [facility]anoGetknhhXDMSDQSHKU0856-49-98 07:19:00 Test Item Value Reference Range Interpretation Comments Hgb (test code = Hgb) 14.0 12.0-16.0 N [facility]anoTzivkmoHHBPCOSEYR0608-92-31 07:19:00 Test Item Value Reference Range Interpretation Comments Hct (test code = Hct) 42.5 36.0-48.0 N [facility]anoTohuwliAIGXRVGZOJ7866-02-98 07:19:00 Test Item Value Reference Range Interpretation Comments MCV (test code = MCV) 92.3 81.0-99.0 N [facility]anoWlgaeivVNHJETCCKF1621-13-81 07:19:00 Test Item Value Reference Range Interpretation Comments MCH (test code = MCH) 30.5 pg 27.0-31.0 N [facility]anoCjorgbaTLBQRFRYAK5006-99-78 07:19:00 Test Item Value Reference Range Interpretation Comments MCHC (test code = MCHC) 33.0 32.0-36.0 N [facility]anoQoelyndSTMSMSSQCK5097-63-11 07:19:00 Test Item Value Reference Range Interpretation Comments RDW (test code = RDW) 14.6 11.5-14.5 H [facility] PlanoZxmrbfmOOFKKWUKOW4541-47-26 07:19:00 Test Item Value Reference Range Interpretation Comments Platelet (test code = Platelet) 215 133-450 N [facility]anoSshqcdrFUPGALACSY4549-63-51 07:19:00 Test Item Value Reference Range Interpretation Comments MPV (test code = MPV) 10.0 7.4-10.4 N [facility]anoInldzlyVDWFWNEKVQ0767-01-76 07:19:00 Test Item Value Reference Range Interpretation Comments RBC (test code = RBC) 4.60 4.20-5.40 N [facility]anoDdmmtlnFFKIXUUYYU2510-41-17 07:19:00 Test Item Value Reference Range Interpretation Comments WBC (test code = WBC) 13.0 3.7-10.4 H [facility] NorthwestEudalnsFYTKJZOCD1332-49-79 07:19:00 Test Item Value Reference Range Interpretation Comments AGAP (test code = AGAP) 14.3 10.0-20.0 N [facility] NorthwestIhjqijhWLTVUOPGF5554-26-06 07:19:00 Test Item Value Reference Range Interpretation Comments eGFR (test code = eGFR) 75 [facility] NorthwestRsxgqrtSQBNLGGWV3951-70-32 07:19:00 Test Item Value Reference Range Interpretation Comments Sodium Lvl (test code = Sodium Lvl) 139 135-145 N [facility] NorthwestVawxeptJVLCWRHDH3963-45-16 07:19:00 Test Item Value Reference Range Interpretation Comments Chloride Lvl (test code = Chloride Lvl) 104 95-109 N [facility] NorthwestSdveajvPWOLEEYJO3359-24-08 07:19:00 Test Item Value Reference Range Interpretation Comments CO2 (test code = CO2) 25 24-32 N [facility] NorthwestZeeshdhUKIBIWBXT0005-59-69 07:19:00 Test Item Value Reference Range Interpretation Comments Calcium Lvl (test code = Calcium Lvl) 10.7 8.5-10.5 H [facility] NorthwestAcwaucrSADOYHKID5284-69-51 07:19:00 Test Item Value Reference Range Interpretation Comments Potassium Lvl (test code = Potassium 4.3 3.5-5.1 N Lvl) [facility] NorthwestGzyoimuBOWYSQLWS2781-24-12 07:19:00 Test Item Value Reference Range Interpretation Comments Glucose Lvl (test code = Glucose Lvl) 262 70-99 H [facility] NorthwestBltdvthBXQGCSMQW0343-64-92 07:19:00 Test Item Value Reference Range Interpretation Comments Creatinine Lvl (test code = Creatinine 0.8 0.5-1.4 N Lvl) [facility] NorthwestWismhuoKKINQKNHC5625-60-34 07:19:00 Test Item Value Reference Range Interpretation Comments BUN (test code = BUN) 20 7-22 N [facility]LlouzfkCJQDPFVTAZ4417-11-83 07:19:00 Test Item Value Reference Range Interpretation Comments Hgb (test code = Hgb) 14.0 12.0-16.0 N [facility]anoXofyitqSTESGUFWPD6754-25-78 07:19:00 Test Item Value Reference Range Interpretation Comments Hct (test code = Hct) 42.5 36.0-48.0 N [facility]anoOzdhqmeXBEJJFJANG7449-57-78 07:19:00 Test Item Value Reference Range Interpretation Comments MCV (test code = MCV) 92.3 81.0-99.0 N [facility]anoDgpzzrgESBGOGQOXM5849-17-87 07:19:00 Test Item Value Reference Range Interpretation Comments MCH (test code = MCH) 30.5 pg 27.0-31.0 N [facility]anoBxuyupfQCSHKYDELO0692-67-98 07:19:00 Test Item Value Reference Range Interpretation Comments MCHC (test code = MCHC) 33.0 32.0-36.0 N [facility]anoObigxdxYKDZPRQJDH2280-42-85 07:19:00 Test Item Value Reference Range Interpretation Comments RDW (test code = RDW) 14.6 11.5-14.5 H [facility]anoSulzntyYHGJQGKJNX6333-98-11 07:19:00 Test Item Value Reference Range Interpretation Comments Platelet (test code = Platelet) 215 133-450 N [facility]anoJhsznhdPWIOMQWUDO7341-39-29 07:19:00 Test Item Value Reference Range Interpretation Comments MPV (test code = MPV) 10.0 7.4-10.4 N [facility]anoMvmdkvgICXSFBZQEG8888-55-45 07:19:00 Test Item Value Reference Range Interpretation Comments RBC (test code = RBC) 4.60 4.20-5.40 N [facility]anoLdkdikhISRWTRZSTU6016-17-36 07:19:00 Test Item Value Reference Range Interpretation Comments WBC (test code = WBC) 13.0 3.7-10.4 H [facility] GLUCOSE EZBAJTK6567-26-37 04:41:00 Test Item Value Reference Range Interpretation Comments Comment1 (test code = Comment1) Notify RN/ [facility] GLUCOSE BAYIYLG0564-56-43 04:41:00 Test Item Value Reference Range Interpretation Comments Gluc POC Lifscn (test code = Gluc POC 244 70-99 H Lifscn) [facility] GLUCOSE [id number] 04:41:00 Test Item Value Reference Range Interpretation Comments Comment1 (test code = Comment1) Notify RN/ [facility] GLUCOSE ZSSPTCQ3107-77-78 04:41:00 Test Item Value Reference Range Interpretation Comments Gluc POC Lifscn (test code = Gluc POC 244 70-99 H Lifscn) [facility] GLUCOSE NWMCRLL6684-46-60 04:41:00 Test Item Value Reference Range Interpretation Comments Comment1 (test code = Comment1) Notify RN/ [facility] GLUCOSE [id number] 04:41:00 Test Item Value Reference Range Interpretation Comments Gluc POC Lifscn (test code = Gluc POC 244 70-99 H Lifscn) [facility] GLUCOSE HWUJGVY6897-02-01 04:41:00 Test Item Value Reference Range Interpretation Comments Comment1 (test code = Comment1) Notify RN/ [facility] GLUCOSE [id number] 04:41:00 Test Item Value Reference Range Interpretation Comments Gluc POC Lifscn (test code = Gluc POC 244 70-99 H Lifscn) [facility] GLUCOSE [id number] 04:41:00 Test Item Value Reference Range Interpretation Comments Comment1 (test code = Comment1) Notify RN/ [facility] GLUCOSE [id number] 04:41:00 Test Item Value Reference Range Interpretation Comments Gluc POC Lifscn (test code = Gluc POC 244 70-99 H Lifscn) [facility] GLUCOSE [id number] 04:41:00 Test Item Value Reference Range Interpretation Comments Comment1 (test code = Comment1) Notify RN/ [facility] GLUCOSE [id number] 04:41:00 Test Item Value Reference Range Interpretation Comments Gluc POC Lifscn (test code = Gluc POC 244 70-99 H Lifscn) [facility] GLUCOSE [id number] 04:41:00 Test Item Value Reference Range Interpretation Comments Comment1 (test code = Comment1) Notify RN/ [facility] GLUCOSE [id number] 04:41:00 Test Item Value Reference Range Interpretation Comments Gluc POC Lifscn (test code = Gluc POC 244 70-99 H Lifscn) [facility]SF[facility]EXPJQ39[facility]-73 07:50:32 Test Item Value Reference Range Interpretation Comments Magnesium Lvl (test code = Magnesium 2.0 1.8-2.4 N Lvl) [facility] NorthwestKvfjvgqZCBABQFID1885-00-04 07:50:32 Test Item Value Reference Range Interpretation Comments Magnesium Lvl (test code = Magnesium 2.0 1.8-2.4 N Lvl) [facility] NorthwestBtxsayqEOLEXQSHB1812-29-10 07:50:32 Test Item Value Reference Range Interpretation Comments Magnesium Lvl (test code = Magnesium 2.0 1.8-2.4 N Lvl) [facility] NorthwestWhptexaMMFAZUDBH2277-97-90 07:50:32 Test Item Value Reference Range Interpretation Comments Magnesium Lvl (test code = Magnesium 2.0 1.8-2.4 N Lvl) [facility] NorthwestGpeeerqLKQQIKLMF1736-64-67 07:50:32 Test Item Value Reference Range Interpretation Comments Magnesium Lvl (test code = Magnesium 2.0 1.8-2.4 N Lvl) [facility] NorthwestVtertpsGRAEQKGMV4952-03-80 07:50:32 Test Item Value Reference Range Interpretation Comments Magnesium Lvl (test code = Magnesium 2.0 1.8-2.4 N Lvl) [facility] NorthwestSdidhssYQCOXNRMT2484-91-85 07:50:32 Test Item Value Reference Range Interpretation Comments Magnesium Lvl (test code = Magnesium 2.0 1.8-2.4 N Lvl) [facility] HospitalIwpcpknIundrpudsiqo5483-06-00 11:00:00 Test Item Value Reference Range Interpretation Comments Culture: Urine (test code = Culture: Urine) [facility] HospitalBbutowcFzrctiwspeek2597-13-30 11:00:00 Test Item Value Reference Range Interpretation Comments Culture: Urine (test code = Culture: Urine) [facility] HospitalTpcpzerRqangkcytvlk8836-86-23 11:00:00 Test Item Value Reference Range Interpretation Comments Culture: Urine (test code = Culture: Urine) [facility] HospitalVukzukbVfrumnrrkvqh0769-83-54 11:00:00 Test Item Value Reference Range Interpretation Comments Culture: Urine (test code = Culture: Urine) [facility] HospitalKexrwciOeobytqcuovx4729-00-27 11:00:00 Test Item Value Reference Range Interpretation Comments Culture: Urine (test code = Culture: Urine) [facility] HospitalFoltkotMptnuqpqluuj0352-50-10 11:00:00 Test Item Value Reference Range Interpretation Comments Culture: Urine (test code = Culture: Urine) [facility] HospitalTbbunymWvcilnraxefq6981-02-35 11:00:00 Test Item Value Reference Range Interpretation Comments Culture: Urine (test code = Culture: Urine) [facility] WorthHtiaixnMPZXZNONRZ0720-12-60 06:52:38 Test Item Value Reference Range Interpretation Comments UA Urobilinogen (test code *NA*(10/04/2012 0.1-1.0 = UA Urobilinogen) 01:52:38) [facility] WorthEoonzxeVLGIPFHGOE9460-79-84 06:52:38 Test Item Value Reference Range Interpretation Comments UA Color (test code = Yellow *NA*(10/04/2012 UA Color) 01:52:38) [facility] CenterKjahbzjDYQDHJHRKW5057-34-94 06:52:38 Test Item Value Reference Range Interpretation Comments UA Bacteria (test code Occasional /HPF = UA Bacteria) *NA*(10/04/2012 01:52:38) [facility] WorthFeytcsmUPVFGOHBRM1387-04-58 06:52:38 Test Item Value Reference Range Interpretation Comments UA Sq Epi (test code Occasional /LPF = UA Sq Epi) *NA*(10/04/2012 01:52:38) [facility] CenterOfdzwuhLFXOHNJHNG0044-36-94 06:52:38 Test Item Value Reference Range Interpretation Comments UA RBC (test code = 6 See_Comment H [Automa juan message] The UA RBC) system which ge nerated this result transmit juan reference range : <=2. The reference range was not used to interpr et this result as lashonda l/abnormal. [facility] CenterEbaosnqMFXXUVQEJP1859-11-68 06:52:38 Test Item Value Reference Range Interpretation Comments UA Leuk Est (test code Small *ABN*(10/04/2012 A = UA Leuk Est) 01:52:38) [facility] CenterWyvosdaFKFNNNCNXT0740-28-01 06:52:38 Test Item Value Reference Range Interpretation Comments UA WBC (test code = 12 See_Comment H [Automa juan message] The UA WBC) system which ge nerated this result transmit juan reference range : <=5. The reference range was not used to interpr et this result as lashonda l/abnormal. [facility] CenterBdsezgtEMCBUGIDRS9950-26-22 06:52:38 Test Item Value Reference Range Interpretation Comments UA Protein (test code = 10 mg/dL A UA Protein) *ABN*(10/04/2012 01:52:38) [facility] WorthLfckxobZNCLIRWSAQ3151-22-50 06:52:38 Test Item Value Reference Range Interpretation Comments UA pH (test code = UA pH) 5.0 5.0-8.0 N [facility] WorthKshawmsCEGYTUPMHC9230-78-72 06:52:38 Test Item Value Reference Range Interpretation Comments UA Spec Grav (test code = UA Spec Grav) 1.022 N [facility] WorthIrkrratZTSLPIYPTV0218-02-26 06:52:38 Test Item Value Reference Range Interpretation Comments UA Turbidity (test code Slight A = UA Turbidity) *ABN*(10/04/2012 01:52:38) [facility] WorthEqiypxqDOZGLWGEIQ7098-01-25 06:52:38 Test Item Value Reference Range Interpretation Comments UA Nitrite (test code Negative (10/04/2012 N = UA Nitrite) 01:52:38) [facility] WorthOyarfbxQAZVDIFRQD3624-14-06 06:52:38 Test Item Value Reference Range Interpretation Comments UA Blood (test code = Small *ABN*(10/04/2012 A UA Blood) 01:52:38) [facility] WorthSiuvffaYOBXXXBKYG4057-83-31 06:52:38 Test Item Value Reference Range Interpretation Comments UA Bili (test code = Negative *NA*(10/04/2012 UA Bili) 01:52:38) [facility] WorthTxlfehmZYVEHGSJTQ7286-54-08 06:52:38 Test Item Value Reference Range Interpretation Comments UA Ketones (test code Negative mg/dL = UA Ketones) *NA*(10/04/2012 01:52:38) [facility] WorthLvklajwTHMXPXQFDD2787-63-60 06:52:38 Test Item Value Reference Range Interpretation Comments UA Glucose (test code = 30 mg/dL A UA Glucose) *ABN*(10/04/2012 01:52:38) [facility] WorthAvjqykxKCWBEQTLQU4800-79-50 06:52:38 Test Item Value Reference Range Interpretation Comments UA Urobilinogen (test code *NA*(10/04/2012 0.1-1.0 = UA Urobilinogen) 01:52:38) [facility] WorthWmazkwdDUXKYMKUZD7712-81-97 06:52:38 Test Item Value Reference Range Interpretation Comments UA Color (test code = Yellow *NA*(10/04/2012 UA Color) 01:52:38) [facility] WorthRilvilhAQVWHVZWKS6096-02-85 06:52:38 Test Item Value Reference Range Interpretation Comments UA Bacteria (test code Occasional /HPF = UA Bacteria) *NA*(10/04/2012 01:52:38) [facility] WorthKfgdainFMPJYAMSCU5114-71-78 06:52:38 Test Item Value Reference Range Interpretation Comments UA Sq Epi (test code Occasional /LPF = UA Sq Epi) *NA*(10/04/2012 01:52:38) [facility] WorthXqzaiwyGGUQMTAHAF3053-43-68 06:52:38 Test Item Value Reference Range Interpretation Comments UA RBC (test code = 6 See_Comment H [Automa juan message] The UA RBC) system which ge nerated this result transmit juan reference range : <=2. The reference range was not used to interpr et this result as lashonda l/abnormal. [facility] WorthDojcxqjYPMQXUABPM9622-84-32 06:52:38 Test Item Value Reference Range Interpretation Comments UA Leuk Est (test code Small *ABN*(10/04/2012 A = UA Leuk Est) 01:52:38) [facility] WorthRibyzpzUDEWJSEQYV7508-29-01 06:52:38 Test Item Value Reference Range Interpretation Comments UA WBC (test code = 12 See_Comment H [Automa juan message] The UA WBC) system which ge nerated this result transmit juan reference range : <=5. The reference range was not used to interpr et this result as lashonda l/abnormal. [facility] WorthJqdkdduGIIYRRHQHJ1812-65-10 06:52:38 Test Item Value Reference Range Interpretation Comments UA Protein (test code = 10 mg/dL A UA Protein) *ABN*(10/04/2012 01:52:38) [facility] WorthYrhltkaSJQRBSIHFQ2990-35-61 06:52:38 Test Item Value Reference Range Interpretation Comments UA pH (test code = UA pH) 5.0 5.0-8.0 N [facility] WorthGpferlcKPLEBWNKJN8983-00-64 06:52:38 Test Item Value Reference Range Interpretation Comments UA Spec Grav (test code = UA Spec Grav) 1.022 N [facility] CenterDoffruqGYKBYIKCEH5970-06-86 06:52:38 Test Item Value Reference Range Interpretation Comments UA Turbidity (test code Slight A = UA Turbidity) *ABN*(10/04/2012 01:52:38) [facility] WorthTipgkxuJZZZCXJIJV8667-98-22 06:52:38 Test Item Value Reference Range Interpretation Comments UA Nitrite (test code Negative (10/04/2012 N = UA Nitrite) 01:52:38) [facility] WorthUlvhzxvGJYNOMPBAJ7956-36-49 06:52:38 Test Item Value Reference Range Interpretation Comments UA Blood (test code = Small *ABN*(10/04/2012 A UA Blood) 01:52:38) [facility] WorthIkuhmkmCRGBYMHWHH5801-85-38 06:52:38 Test Item Value Reference Range Interpretation Comments UA Bili (test code = Negative *NA*(10/04/2012 UA Bili) 01:52:38) [facility] WorthJpbbtvpZRUJOWFZHX4343-56-07 06:52:38 Test Item Value Reference Range Interpretation Comments UA Ketones (test code Negative mg/dL = UA Ketones) *NA*(10/04/2012 01:52:38) [facility] WorthQjvttibXEDAPXEJXI1448-68-25 06:52:38 Test Item Value Reference Range Interpretation Comments UA Glucose (test code = 30 mg/dL A UA Glucose) *ABN*(10/04/2012 01:52:38) [facility] WorthWmqxuviMSAVBJLKWL0999-43-70 06:52:38 Test Item Value Reference Range Interpretation Comments UA Urobilinogen (test code *NA*(10/04/2012 0.1-1.0 = UA Urobilinogen) 01:52:38) [facility] WorthYziqgvsQUHKLTNDWM2916-40-00 06:52:38 Test Item Value Reference Range Interpretation Comments UA Color (test code = Yellow *NA*(10/04/2012 UA Color) 01:52:38) [facility] WorthVwtqgraZHIOHREKRE2874-02-49 06:52:38 Test Item Value Reference Range Interpretation Comments UA Bacteria (test code Occasional /HPF = UA Bacteria) *NA*(10/04/2012 01:52:38) [facility] WorthDipuadxCCTDKGHGHL9675-24-36 06:52:38 Test Item Value Reference Range Interpretation Comments UA Sq Epi (test code Occasional /LPF = UA Sq Epi) *NA*(10/04/2012 01:52:38) [facility] WorthJyjqwkhALLMXWZFUF0239-37-97 06:52:38 Test Item Value Reference Range Interpretation Comments UA RBC (test code = 6 See_Comment H [Automa juan message] The UA RBC) system which ge nerated this result transmit juan reference range : <=2. The reference range was not used to interpr et this result as lashonda l/abnormal. [facility] CenterKrxndpiBHDZOVNIEE4311-49-89 06:52:38 Test Item Value Reference Range Interpretation Comments UA Leuk Est (test code Small *ABN*(10/04/2012 A = UA Leuk Est) 01:52:38) [facility] WorthHnrnbmhBNTLOOEVPU7348-66-96 06:52:38 Test Item Value Reference Range Interpretation Comments UA WBC (test code = 12 See_Comment H [Automa juan message] The UA WBC) system which ge nerated this result transmit juan reference range : <=5. The reference range was not used to interpr et this result as lashonda l/abnormal. [facility] CenterAmdqhxiHUOVQRVMOX0175-75-21 06:52:38 Test Item Value Reference Range Interpretation Comments UA Protein (test code = 10 mg/dL A UA Protein) *ABN*(10/04/2012 01:52:38) [facility] CenterIclcdyvQEZPSCIORX2131-42-26 06:52:38 Test Item Value Reference Range Interpretation Comments UA pH (test code = UA pH) 5.0 5.0-8.0 N [facility] CenterFfzcxhpYXWIMNXOFX1905-35-17 06:52:38 Test Item Value Reference Range Interpretation Comments UA Spec Grav (test code = UA Spec Grav) 1.022 N [facility] CenterIpfldkaUNPHBZAEJN1072-11-85 06:52:38 Test Item Value Reference Range Interpretation Comments UA Turbidity (test code Slight A = UA Turbidity) *ABN*(10/04/2012 01:52:38) [facility] CenterIucycvyEYAVRDEFFF1635-07-37 06:52:38 Test Item Value Reference Range Interpretation Comments UA Nitrite (test code Negative (10/04/2012 N = UA Nitrite) 01:52:38) [facility] CenterMpdcdfaDOAEGDCXLM6439-57-20 06:52:38 Test Item Value Reference Range Interpretation Comments UA Blood (test code = Small *ABN*(10/04/2012 A UA Blood) 01:52:38) [facility] CenterOrzksbzSKDTYPDFFZ4558-12-25 06:52:38 Test Item Value Reference Range Interpretation Comments UA Bili (test code = Negative *NA*(10/04/2012 UA Bili) 01:52:38) [facility] WorthFrmixhaSQCPUSWENP8727-26-07 06:52:38 Test Item Value Reference Range Interpretation Comments UA Ketones (test code Negative mg/dL = UA Ketones) *NA*(10/04/2012 01:52:38) [facility] WorthKvrqaydMAJKMWPUKH2947-46-73 06:52:38 Test Item Value Reference Range Interpretation Comments UA Glucose (test code = 30 mg/dL A UA Glucose) *ABN*(10/04/2012 01:52:38) [facility] WorthXaogehnOMROGSHAXB4934-28-67 06:52:38 Test Item Value Reference Range Interpretation Comments UA Urobilinogen (test code *NA*(10/04/2012 0.1-1.0 = UA Urobilinogen) 01:52:38) [facility] WorthZkayxldCOPTIEEBMY1504-70-77 06:52:38 Test Item Value Reference Range Interpretation Comments UA Color (test code = Yellow *NA*(10/04/2012 UA Color) 01:52:38) [facility] WorthMcbtdyvLZMEXYEZWL0928-55-04 06:52:38 Test Item Value Reference Range Interpretation Comments UA Bacteria (test code Occasional /HPF = UA Bacteria) *NA*(10/04/2012 01:52:38) [facility] WorthHrrbnzlNILBRVXWGN8391-75-96 06:52:38 Test Item Value Reference Range Interpretation Comments UA Sq Epi (test code Occasional /LPF = UA Sq Epi) *NA*(10/04/2012 01:52:38) [facility] WorthAbvrqknSBMMADOMXR9155-89-76 06:52:38 Test Item Value Reference Range Interpretation Comments UA RBC (test code = 6 See_Comment H [Automa juan message] The UA RBC) system which ge nerated this result transmit juan reference range : <=2. The reference range was not used to interpr et this result as lashonda l/abnormal. [facility] WorthHasqioaZQSVOXRUVS1085-24-30 06:52:38 Test Item Value Reference Range Interpretation Comments UA Leuk Est (test code Small *ABN*(10/04/2012 A = UA Leuk Est) 01:52:38) [facility] WorthDpreqegXIPRXSVYRX3502-81-81 06:52:38 Test Item Value Reference Range Interpretation Comments UA WBC (test code = 12 See_Comment H [Automa juan message] The UA WBC) system which ge nerated this result transmit juan reference range : <=5. The reference range was not used to interpr et this result as lashonda l/abnormal. [facility] WorthRruivszUJFZHBQRRQ6794-81-55 06:52:38 Test Item Value Reference Range Interpretation Comments UA Protein (test code = 10 mg/dL A UA Protein) *ABN*(10/04/2012 01:52:38) [facility] WorthOfvthmdIGQBYRCXZC6926-88-98 06:52:38 Test Item Value Reference Range Interpretation Comments UA pH (test code = UA pH) 5.0 5.0-8.0 N [facility] WorthZxfgtlrPBVJJXALBW7430-36-42 06:52:38 Test Item Value Reference Range Interpretation Comments UA Spec Grav (test code = UA Spec Grav) 1.022 N [facility] WorthOrukrsyDRAAXURLIK1107-41-03 06:52:38 Test Item Value Reference Range Interpretation Comments UA Turbidity (test code Slight A = UA Turbidity) *ABN*(10/04/2012 01:52:38) [facility] WorthDkcrpuoRSQAHSSWRX7938-65-96 06:52:38 Test Item Value Reference Range Interpretation Comments UA Nitrite (test code Negative (10/04/2012 N = UA Nitrite) 01:52:38) [facility] WorthJpmvmmpOTMSQWHMRJ2926-90-07 06:52:38 Test Item Value Reference Range Interpretation Comments UA Blood (test code = Small *ABN*(10/04/2012 A UA Blood) 01:52:38) [facility] WorthZybanqzRAMXXXVCAO0849-42-70 06:52:38 Test Item Value Reference Range Interpretation Comments UA Bili (test code = Negative *NA*(10/04/2012 UA Bili) 01:52:38) [facility] CenterFfmvrypAORGIFQVAH6655-09-87 06:52:38 Test Item Value Reference Range Interpretation Comments UA Ketones (test code Negative mg/dL = UA Ketones) *NA*(10/04/2012 01:52:38) [facility] WorthBrtsvoyIIJOYEAYNX2997-77-72 06:52:38 Test Item Value Reference Range Interpretation Comments UA Glucose (test code = 30 mg/dL A UA Glucose) *ABN*(10/04/2012 01:52:38) [facility] WorthOdmetcmDOZBJBRSVN4666-03-08 06:52:38 Test Item Value Reference Range Interpretation Comments UA Urobilinogen (test code *NA*(10/04/2012 0.1-1.0 = UA Urobilinogen) 01:52:38) [facility] WorthSljypraQIEOMITPVR4401-21-17 06:52:38 Test Item Value Reference Range Interpretation Comments UA Color (test code = Yellow *NA*(10/04/2012 UA Color) 01:52:38) [facility] CenterXhuvwupLSXTAKRXEC4025-99-39 06:52:38 Test Item Value Reference Range Interpretation Comments UA Bacteria (test code Occasional /HPF = UA Bacteria) *NA*(10/04/2012 01:52:38) [facility] CenterPmvtjrxLBERHJHUHC2363-83-41 06:52:38 Test Item Value Reference Range Interpretation Comments UA Sq Epi (test code Occasional /LPF = UA Sq Epi) *NA*(10/04/2012 01:52:38) [facility] WorthVehndkqQCAECTVIUX8227-22-45 06:52:38 Test Item Value Reference Range Interpretation Comments UA RBC (test code = 6 See_Comment H [Automa juan message] The UA RBC) system which ge nerated this result transmit juan reference range : <=2. The reference range was not used to interpr et this result as lashonda l/abnormal. [facility] WorthDrykjaxBZMWYTQOON2464-10-34 06:52:38 Test Item Value Reference Range Interpretation Comments UA Leuk Est (test code Small *ABN*(10/04/2012 A = UA Leuk Est) 01:52:38) [facility]RqkukgiAQKCPCWIJD6068-95-94 06:52:38 Test Item Value Reference Range Interpretation Comments UA WBC (test code = 12 See_Comment H [Automa juan message] The UA WBC) system which ge nerated this result transmit juan reference range : <=5. The reference range was not used to interpr et this result as lashonda l/abnormal. [facility] CenterZadzwlzIDFECCYSWM9448-34-54 06:52:38 Test Item Value Reference Range Interpretation Comments UA Protein (test code = 10 mg/dL A UA Protein) *ABN*(10/04/2012 01:52:38) [facility] CenterZmujfkmUQAPAQYQSP2827-94-37 06:52:38 Test Item Value Reference Range Interpretation Comments UA pH (test code = UA pH) 5.0 5.0-8.0 N [facility] CenterOcfxhnnQSYHGJHFAX8330-65-55 06:52:38 Test Item Value Reference Range Interpretation Comments UA Spec Grav (test code = UA Spec Grav) 1.022 N [facility] WorthLkepqlzAZJNRQVYTG8913-94-35 06:52:38 Test Item Value Reference Range Interpretation Comments UA Turbidity (test code Slight A = UA Turbidity) *ABN*(10/04/2012 01:52:38) [facility] [place] WorthRyyafzoGROIEFLJWC4187-62-04 06:52:38 Test Item Value Reference Range Interpretation Comments UA Nitrite (test code Negative (10/04/2012 N = UA Nitrite) 01:52:38) [facility] WorthBzjsdjtUJQFWBJRDM5433-87-95 06:52:38 Test Item Value Reference Range Interpretation Comments UA Blood (test code = Small *ABN*(10/04/2012 A UA Blood) 01:52:38) [facility] WorthNorzpheMSGMXWLIMV9398-67-24 06:52:38 Test Item Value Reference Range Interpretation Comments UA Bili (test code = Negative *NA*(10/04/2012 UA Bili) 01:52:38) [facility] WorthTujwiwxMMVQUSGEML2099-81-26 06:52:38 Test Item Value Reference Range Interpretation Comments UA Ketones (test code Negative mg/dL = UA Ketones) *NA*(10/04/2012 01:52:38) [facility] WorthZvsxuncQBTLWMBJOX5981-77-98 06:52:38 Test Item Value Reference Range Interpretation Comments UA Glucose (test code = 30 mg/dL A UA Glucose) *ABN*(10/04/2012 01:52:38) [facility] WorthDxumxkiIISJHXEQTP4293-19-21 06:52:38 Test Item Value Reference Range Interpretation Comments UA Urobilinogen (test code *NA*(10/04/2012 0.1-1.0 = UA Urobilinogen) 01:52:38) [facility] WorthXgxmcacZEZTNHMSTQ6528-06-66 06:52:38 Test Item Value Reference Range Interpretation Comments UA Color (test code = Yellow *NA*(10/04/2012 UA Color) 01:52:38) [facility] WorthCdhacelAMYGPDYAWP9973-97-74 06:52:38 Test Item Value Reference Range Interpretation Comments UA Bacteria (test code Occasional /HPF = UA Bacteria) *NA*(10/04/2012 01:52:38) [facility] CenterDhnfxhrJLYBTSAFUW2046-38-36 06:52:38 Test Item Value Reference Range Interpretation Comments UA Sq Epi (test code Occasional /LPF = UA Sq Epi) *NA*(10/04/2012 01:52:38) [facility] CenterFlbddfcNSECABAVUY6173-10-23 06:52:38 Test Item Value Reference Range Interpretation Comments UA RBC (test code = 6 See_Comment H [Automa juan message] The UA RBC) system which ge nerated this result transmit juan reference range : <=2. The reference range was not used to interpr et this result as lashonda l/abnormal. [facility] CenterDoyfmrqJXBCJCJRGA8461-54-00 06:52:38 Test Item Value Reference Range Interpretation Comments UA Leuk Est (test code Small *ABN*(10/04/2012 A = UA Leuk Est) 01:52:38) [facility] WorthClhmuapLOXPIDTLMD5228-62-47 06:52:38 Test Item Value Reference Range Interpretation Comments UA WBC (test code = 12 See_Comment H [Automa juan message] The UA WBC) system which ge nerated this result transmit juan reference range : <=5. The reference range was not used to interpr et this result as lashonda l/abnormal. [facility] CenterMzssmspEBZAANMZBK5530-59-19 06:52:38 Test Item Value Reference Range Interpretation Comments UA Protein (test code = 10 mg/dL A UA Protein) *ABN*(10/04/2012 01:52:38) [facility] CenterRvfpznlWJBRAHFZXO6607-63-48 06:52:38 Test Item Value Reference Range Interpretation Comments UA pH (test code = UA pH) 5.0 5.0-8.0 N [facility] CenterAyskhpnFZAMLADEDF5376-66-57 06:52:38 Test Item Value Reference Range Interpretation Comments UA Spec Grav (test code = UA Spec Grav) 1.022 N [facility] CenterOlpbzxiHVCFKMAAQM7945-12-68 06:52:38 Test Item Value Reference Range Interpretation Comments UA Turbidity (test code Slight A = UA Turbidity) *ABN*(10/04/2012 01:52:38) [facility] CenterGaojxccNYXESXHWVS3515-37-82 06:52:38 Test Item Value Reference Range Interpretation Comments UA Nitrite (test code Negative (10/04/2012 N = UA Nitrite) 01:52:38) [facility] CenterYneolapCEWQBMYVVE7420-94-67 06:52:38 Test Item Value Reference Range Interpretation Comments UA Blood (test code = Small *ABN*(10/04/2012 A UA Blood) 01:52:38) [facility] WorthVavccncQEAMWMOGJG1016-64-42 06:52:38 Test Item Value Reference Range Interpretation Comments UA Bili (test code = Negative *NA*(10/04/2012 UA Bili) 01:52:38) [facility] WorthTglehyrOZMOFLTQJA6146-23-76 06:52:38 Test Item Value Reference Range Interpretation Comments UA Ketones (test code Negative mg/dL = UA Ketones) *NA*(10/04/2012 01:52:38) [facility] [place] WorthIjvftiwANAAZYBTKV3959-65-99 06:52:38 Test Item Value Reference Range Interpretation Comments UA Glucose (test code = 30 mg/dL A UA Glucose) *ABN*(10/04/2012 01:52:38) [facility] [place] WorthQbjiesuFNMOUFTJPI2067-89-03 06:52:38 Test Item Value Reference Range Interpretation Comments UA Urobilinogen (test code *NA*(10/04/2012 0.1-1.0 = UA Urobilinogen) 01:52:38) [facility] WorthGdlfizbLAXKNGTSFK2510-21-33 06:52:38 Test Item Value Reference Range Interpretation Comments UA Color (test code = Yellow *NA*(10/04/2012 UA Color) 01:52:38) [facility] WorthCvytbpeFQBSTEFJDK7158-55-71 06:52:38 Test Item Value Reference Range Interpretation Comments UA Bacteria (test code Occasional /HPF = UA Bacteria) *NA*(10/04/2012 01:52:38) [facility] WorthKkfeknwOZMMCTOPTT0410-05-63 06:52:38 Test Item Value Reference Range Interpretation Comments UA Sq Epi (test code Occasional /LPF = UA Sq Epi) *NA*(10/04/2012 01:52:38) [facility] WorthHmaklbfTTJKOHEPKW0064-10-59 06:52:38 Test Item Value Reference Range Interpretation Comments UA RBC (test code = 6 See_Comment H [Automa juan message] The UA RBC) system which ge nerated this result transmit juan reference range : <=2. The reference range was not used to interpr et this result as lashonda l/abnormal. [facility] CenterQcunuuqGHUBKCINBH5515-99-40 06:52:38 Test Item Value Reference Range Interpretation Comments UA Leuk Est (test code Small *ABN*(10/04/2012 A = UA Leuk Est) 01:52:38) [facility] WorthLfchotsBVKITRONEF3022-28-11 06:52:38 Test Item Value Reference Range Interpretation Comments UA WBC (test code = 12 See_Comment H [Automa juan message] The UA WBC) system which ge nerated this result transmit juan reference range : <=5. The reference range was not used to interpr et this result as lashonda l/abnormal. [facility] CenterLjffrtkCBQHJPRPUP7036-57-30 06:52:38 Test Item Value Reference Range Interpretation Comments UA Protein (test code = 10 mg/dL A UA Protein) *ABN*(10/04/2012 01:52:38) [facility] CenterYvwyyicRPDCSBQAJZ2388-27-00 06:52:38 Test Item Value Reference Range Interpretation Comments UA pH (test code = UA pH) 5.0 5.0-8.0 N [facility] CenterIpjohgwYUBJSVWELB6714-37-69 06:52:38 Test Item Value Reference Range Interpretation Comments UA Spec Grav (test code = UA Spec Grav) 1.022 N [facility] CenterFgenyccVDJZADQGVA5310-10-24 06:52:38 Test Item Value Reference Range Interpretation Comments UA Turbidity (test code Slight A = UA Turbidity) *ABN*(10/04/2012 01:52:38) [facility] CenterHmxvwyzFJUFBXEODW8082-80-58 06:52:38 Test Item Value Reference Range Interpretation Comments UA Nitrite (test code Negative (10/04/2012 N = UA Nitrite) 01:52:38) [facility] CenterWcjqeuxHAMAIGWHEQ6883-02-15 06:52:38 Test Item Value Reference Range Interpretation Comments UA Blood (test code = Small *ABN*(10/04/2012 A UA Blood) 01:52:38) [facility] CenterZfzwtrlDVCNMAOVEV7212-22-68 06:52:38 Test Item Value Reference Range Interpretation Comments UA Bili (test code = Negative *NA*(10/04/2012 UA Bili) 01:52:38) [facility] CenterTshxvaoYFJQVTNGLT5343-62-09 06:52:38 Test Item Value Reference Range Interpretation Comments UA Ketones (test code Negative mg/dL = UA Ketones) *NA*(10/04/2012 01:52:38) [facility] CenterDtlxqfiNCPZPZLAPD2808-16-27 06:52:38 Test Item Value Reference Range Interpretation Comments UA Glucose (test code = 30 mg/dL A UA Glucose) *ABN*(10/04/2012 01:52:38) [facility] NorthwestLirsbelOPMMOGEPX8706-90-22 06:52:00 Test Item Value Reference Range Interpretation Comments Phosphorus (test code = Phosphorus) 3.5 2.5-4.5 N [facility] NorthwestUvofbdzQUTLKMDIL9901-77-62 06:52:00 Test Item Value Reference Range Interpretation Comments AGAP (test code = AGAP) 13.4 10.0-20.0 N [facility] NorthwestQxltaldNTWXOSHZI8106-27-58 06:52:00 Test Item Value Reference Range Interpretation Comments Glucose Lvl (test code = Glucose Lvl) 181 70-99 H [facility] NorthwestXsbripkAUBYONJWL5318-63-03 06:52:00 Test Item Value Reference Range Interpretation Comments Creatinine Lvl (test code = Creatinine 0.9 0.5-1.4 N Lvl) [facility] NorthwestHgpuqbyMWYMILMUF8708-53-32 06:52:00 Test Item Value Reference Range Interpretation Comments BUN (test code = BUN) 17 7-22 N [facility] NorthwestTdqfmeoAEJSVFHXN6514-05-57 06:52:00 Test Item Value Reference Range Interpretation Comments Sodium Lvl (test code = Sodium Lvl) 140 135-145 N [facility] NorthwestIslzmjdTYWKSYMRQ3122-09-85 06:52:00 Test Item Value Reference Range Interpretation Comments Chloride Lvl (test code = Chloride Lvl) 105 95-109 N [facility] NorthwestWzsyentCWMMUZUOE6035-67-46 06:52:00 Test Item Value Reference Range Interpretation Comments Calcium Lvl (test code = Calcium Lvl) 9.7 8.5-10.5 N [facility] NorthwestKdxjedvDIHIPECUI8727-94-34 06:52:00 Test Item Value Reference Range Interpretation Comments Potassium Lvl (test code = Potassium 4.4 3.5-5.1 N Lvl) [facility] NorthwestKrwazjsVNLWJRLMW5009-50-36 06:52:00 Test Item Value Reference Range Interpretation Comments CO2 (test code = CO2) 26 24-32 N [facility] NorthwestIgcuonrJBESXLLFH3714-46-20 06:52:00 Test Item Value Reference Range Interpretation Comments eGFR (test code = eGFR) 65 [facility] NorthwestSqswtjdNFYNYSDGM9534-60-42 06:52:00 Test Item Value Reference Range Interpretation Comments Magnesium Lvl (test code = Magnesium 1.5 1.8-2.4 L Lvl) [facility]YflfwqcBBJHLVAVBP4353-95-25 06:52:00 Test Item Value Reference Range Interpretation Comments RBC (test code = RBC) 4.85 4.20-5.40 N [facility]anoKfnamsfAKHLPDVTHS7458-22-28 06:52:00 Test Item Value Reference Range Interpretation Comments WBC (test code = WBC) 9.2 3.7-10.4 N [facility]anoLemrtxkHSTULSMZRN9401-75-20 06:52:00 Test Item Value Reference Range Interpretation Comments Hgb (test code = Hgb) 14.9 12.0-16.0 N [facility]anoKxrubgeCPZTBRQBTQ2251-29-17 06:52:00 Test Item Value Reference Range Interpretation Comments MCHC (test code = MCHC) 33.3 32.0-36.0 N [facility]anoNtejeacOWOZQDURJX6807-13-25 06:52:00 Test Item Value Reference Range Interpretation Comments MCH (test code = MCH) 30.7 pg 27.0-31.0 N [facility]anoGnxpqgdMGTVYKPFNK8610-01-95 06:52:00 Test Item Value Reference Range Interpretation Comments Hct (test code = Hct) 44.9 36.0-48.0 N [facility]anoXylcrniLIXPKCMOXX2227-09-64 06:52:00 Test Item Value Reference Range Interpretation Comments MCV (test code = MCV) 92.4 81.0-99.0 N [facility]anoNnmvaxaDHDTRRHRVU3149-32-41 06:52:00 Test Item Value Reference Range Interpretation Comments RDW (test code = RDW) 14.5 11.5-14.5 N [facility]anoUjprjnrXOYBWWFTKY1542-89-37 06:52:00 Test Item Value Reference Range Interpretation Comments Platelet (test code = Platelet) 213 133-450 N [facility]anoCqqrujuFFIAQIIAAR3424-62-40 06:52:00 Test Item Value Reference Range Interpretation Comments MPV (test code = MPV) 9.5 7.4-10.4 N [place] 088183-04-19 06:52:00 Test Item Value Reference Range Interpretation Comments Segs-Bands # (test code = Segs-Bands #) 7.7 1.5-8.1 N [facility]anoXhkrpbuYDIPWXJJRO4935-31-38 06:52:00 Test Item Value Reference Range Interpretation Comments Basophils (test code = 0.3 See_Comment N [Aut omated message] The Basophils) system which ge nerated this result tra nsmitted reference range : <=1.0. The reference r leatha was not used to int erpret this result as normal/abnormal . [facility]anoQywzbgmWQNTTUPRSF0179-35-16 06:52:00 Test Item Value Reference Range Interpretation Comments Monocytes # (test code 0.6 See_Comment N [Aut omated message] The = Monocytes #) system which generated this result tra nsmitted reference range : <=0.8. The reference r leatha was not used to int erpret this result as normal/abnormal . [facility]anoDxomhyxLEVGOOTOQJ5176-85-72 06:52:00 Test Item Value Reference Range Interpretation Comments Lymphocytes # (test code = Lymphocytes 0.9 1.0-5.5 L #) [facility]anoDqzbntlMYOKGNHOJC3693-22-18 06:52:00 Test Item Value Reference Range Interpretation Comments Lymphocytes (test code = Lymphocytes) 9.5 20.0-40.0 L [facility]anoCwylztlCKRFZRYHNA3405-60-98 06:52:00 Test Item Value Reference Range Interpretation Comments Segs (test code = Segs) 84.1 45.0-75.0 H [facility]anoTictdopDCFUYTWFVU1706-67-87 06:52:00 Test Item Value Reference Range Interpretation Comments Monocytes (test code = Monocytes) 6.0 2.0-12.0 N [facility]anoHrgezqrJVQVZRKRQH5324-86-59 06:52:00 Test Item Value Reference Range Interpretation Comments Eosinophils (test code = 0.1 See_Comment N [A utomated message] The Eosinophils) system which ge nerated this result tra nsmitted reference range : <=4.0. The reference r leatha was not used to int erpret this result as normal/abnormal . [facility] NorthwestKugwkfjXVIIPHQGU0032-83-69 06:52:00 Test Item Value Reference Range Interpretation Comments Phosphorus (test code = Phosphorus) 3.5 2.5-4.5 N [facility] NorthwestAagfmzuYFPNUVWMA0104-12-88 06:52:00 Test Item Value Reference Range Interpretation Comments AGAP (test code = AGAP) 13.4 10.0-20.0 N [facility] NorthwestPbtkjbkANPAMHJRF4060-97-26 06:52:00 Test Item Value Reference Range Interpretation Comments Glucose Lvl (test code = Glucose Lvl) 181 70-99 H [facility] NorthwestIfplzloNTPDOGMFI4232-32-71 06:52:00 Test Item Value Reference Range Interpretation Comments Creatinine Lvl (test code = Creatinine 0.9 0.5-1.4 N Lvl) [facility] NorthwestMjdofqrZYFUSXNUY7279-57-43 06:52:00 Test Item Value Reference Range Interpretation Comments BUN (test code = BUN) 17 7-22 N [facility] NorthwestOdqbyusSLPXNUTMS2410-54-27 06:52:00 Test Item Value Reference Range Interpretation Comments Sodium Lvl (test code = Sodium Lvl) 140 135-145 N [facility] NorthwestMgenpttYPCSUPGQA2820-56-90 06:52:00 Test Item Value Reference Range Interpretation Comments Chloride Lvl (test code = Chloride Lvl) 105 95-109 N [facility] NorthwestOubnxtpYIAVAWRNA1031-35-67 06:52:00 Test Item Value Reference Range Interpretation Comments Calcium Lvl (test code = Calcium Lvl) 9.7 8.5-10.5 N [facility] NorthwestYnsubdjFLIPCBSFQ6993-96-94 06:52:00 Test Item Value Reference Range Interpretation Comments Potassium Lvl (test code = Potassium 4.4 3.5-5.1 N Lvl) [facility] NorthwestJueixxuUQDCULLPQ1516-81-13 06:52:00 Test Item Value Reference Range Interpretation Comments CO2 (test code = CO2) 26 24-32 N [facility] NorthwestSlubpxaZZVBGCOGK2636-93-98 06:52:00 Test Item Value Reference Range Interpretation Comments eGFR (test code = eGFR) 65 [facility] NorthwestJmkngxzRCMTETKTM7849-32-39 06:52:00 Test Item Value Reference Range Interpretation Comments Magnesium Lvl (test code = Magnesium 1.5 1.8-2.4 L Lvl) [facility]anoIpslhwoUVQCNMVJIW7000-11-37 06:52:00 Test Item Value Reference Range Interpretation Comments RBC (test code = RBC) 4.85 4.20-5.40 N [facility]anoVvsyjapHQPCILDDDH2957-16-82 06:52:00 Test Item Value Reference Range Interpretation Comments WBC (test code = WBC) 9.2 3.7-10.4 N [facility]anoQquxsftGLOMYMTGJJ8810-86-64 06:52:00 Test Item Value Reference Range Interpretation Comments Hgb (test code = Hgb) 14.9 12.0-16.0 N [facility]anoGradwewCYZAJSGXOQ6469-89-46 06:52:00 Test Item Value Reference Range Interpretation Comments MCHC (test code = MCHC) 33.3 32.0-36.0 N [facility]anoIwipwxyBDTLMMVFJZ4618-89-09 06:52:00 Test Item Value Reference Range Interpretation Comments MCH (test code = MCH) 30.7 pg 27.0-31.0 N [facility]anoXuvyvkdXHOLRZYURI1180-96-62 06:52:00 Test Item Value Reference Range Interpretation Comments Hct (test code = Hct) 44.9 36.0-48.0 N [facility] PlanoUppkzixTOYBVQJKCL7582-68-00 06:52:00 Test Item Value Reference Range Interpretation Comments MCV (test code = MCV) 92.4 81.0-99.0 N [facility]anoJznlpfzLYBLUJSVMD9718-20-18 06:52:00 Test Item Value Reference Range Interpretation Comments RDW (test code = RDW) 14.5 11.5-14.5 N [facility]anoHgyktyjGRWRFAVBHQ9690-66-09 06:52:00 Test Item Value Reference Range Interpretation Comments Platelet (test code = Platelet) 213 133-450 N [facility] PlanoCnewvaaSPGBZZMUCR7989-79-33 06:52:00 Test Item Value Reference Range Interpretation Comments MPV (test code = MPV) 9.5 7.4-10.4 N [facility]anoYvbdztmNAYCFCMQFO7146-50-02 06:52:00 Test Item Value Reference Range Interpretation Comments Segs-Bands # (test code = Segs-Bands #) 7.7 1.5-8.1 N [facility]anoTosubxrEXQBPZZANV9297-51-50 06:52:00 Test Item Value Reference Range Interpretation Comments Basophils (test code = 0.3 See_Comment N [Aut omated message] The Basophils) system which ge nerated this result tra nsmitted reference range : <=1.0. The reference r leatha was not used to int erpret this result as normal/abnormal . [facility] PlanoVfuohfhXGBLDDLPUB8897-72-61 06:52:00 Test Item Value Reference Range Interpretation Comments Monocytes # (test code 0.6 See_Comment N [Aut omated message] The = Monocytes #) system which generated this result tra nsmitted reference range : <=0.8. The reference r leatha was not used to int erpret this result as normal/abnormal . [facility] PlanoYejlwztUERWYAEWER3263-24-75 06:52:00 Test Item Value Reference Range Interpretation Comments Lymphocytes # (test code = Lymphocytes 0.9 1.0-5.5 L #) [facility]anoVajzdyfKEDUXAQKSZ5145-58-42 06:52:00 Test Item Value Reference Range Interpretation Comments Lymphocytes (test code = Lymphocytes) 9.5 20.0-40.0 L [facility] PlanoZqsxdpgUJQQLVGEXV2339-45-72 06:52:00 Test Item Value Reference Range Interpretation Comments Segs (test code = Segs) 84.1 45.0-75.0 H [facility] PlanoVthevzpVLGJGOZSNA0671-31-05 06:52:00 Test Item Value Reference Range Interpretation Comments Monocytes (test code = Monocytes) 6.0 2.0-12.0 N [facility]anoIlnzemvWOEYFJKKSM8363-76-94 06:52:00 Test Item Value Reference Range Interpretation Comments Eosinophils (test code = 0.1 See_Comment N [A utomated message] The Eosinophils) system which ge nerated this result tra nsmitted reference range : <=4.0. The reference r leatha was not used to int erpret this result as normal/abnormal . [facility] NorthwestPhdcvrcVXWRXXNTQ8930-70-86 06:52:00 Test Item Value Reference Range Interpretation Comments Phosphorus (test code = Phosphorus) 3.5 2.5-4.5 N [facility] NorthwestNqqkaxtWTKBXPXIT2446-34-82 06:52:00 Test Item Value Reference Range Interpretation Comments AGAP (test code = AGAP) 13.4 10.0-20.0 N [facility] NorthwestIopfzptZVXDYWQOE1638-45-30 06:52:00 Test Item Value Reference Range Interpretation Comments Glucose Lvl (test code = Glucose Lvl) 181 70-99 H [facility] NorthwestSzedsibBRWWNGMYN6928-38-38 06:52:00 Test Item Value Reference Range Interpretation Comments Creatinine Lvl (test code = Creatinine 0.9 0.5-1.4 N Lvl) [facility] NorthwestKrtkkcxYZTZYZCNQ7855-76-25 06:52:00 Test Item Value Reference Range Interpretation Comments BUN (test code = BUN) 17 7-22 N [facility] NorthwestDjqangpVPVRAMPWR4191-24-98 06:52:00 Test Item Value Reference Range Interpretation Comments Sodium Lvl (test code = Sodium Lvl) 140 135-145 N [facility] NorthwestZhmasmsNDGBLQGAL3311-08-48 06:52:00 Test Item Value Reference Range Interpretation Comments Chloride Lvl (test code = Chloride Lvl) 105 95-109 N [facility] NorthwestUiekakeGMCUTARCD8907-29-02 06:52:00 Test Item Value Reference Range Interpretation Comments Calcium Lvl (test code = Calcium Lvl) 9.7 8.5-10.5 N [facility] NorthwestEisowoqYVYULJTJN7936-62-97 06:52:00 Test Item Value Reference Range Interpretation Comments Potassium Lvl (test code = Potassium 4.4 3.5-5.1 N Lvl) [facility] NorthwestVwxznmoFALAJRLMD7690-48-53 06:52:00 Test Item Value Reference Range Interpretation Comments CO2 (test code = CO2) 26 24-32 N [facility] NorthwestDpasqnsQZHUQGKTW1684-44-67 06:52:00 Test Item Value Reference Range Interpretation Comments eGFR (test code = eGFR) 65 [facility] NorthwestJrhejimGXUNTXRJM4694-60-68 06:52:00 Test Item Value Reference Range Interpretation Comments Magnesium Lvl (test code = Magnesium 1.5 1.8-2.4 L Lvl) [facility]anoPhlsxouTREHUKJXAC9399-77-81 06:52:00 Test Item Value Reference Range Interpretation Comments RBC (test code = RBC) 4.85 4.20-5.40 N [facility] PlanoAnolgxvVHXIXFZDAK2491-58-83 06:52:00 Test Item Value Reference Range Interpretation Comments WBC (test code = WBC) 9.2 3.7-10.4 N [facility]UcsdxieTFSBGKQNDV4367-64-30 06:52:00 Test Item Value Reference Range Interpretation Comments Hgb (test code = Hgb) 14.9 12.0-16.0 N [facility]YpnyztdIGBWHPLIMC4223-51-64 06:52:00 Test Item Value Reference Range Interpretation Comments MCHC (test code = MCHC) 33.3 32.0-36.0 N [facility]anoNptjicuYVZVBRSQCY0902-90-18 06:52:00 Test Item Value Reference Range Interpretation Comments MCH (test code = MCH) 30.7 pg 27.0-31.0 N [facility]anoNlksqyxMYAXWTHINE3454-50-88 06:52:00 Test Item Value Reference Range Interpretation Comments Hct (test code = Hct) 44.9 36.0-48.0 N [facility]anoUrxgituVNPHNZIRFH4453-60-16 06:52:00 Test Item Value Reference Range Interpretation Comments MCV (test code = MCV) 92.4 81.0-99.0 N [facility]anoLaczpqgLTHLNQHPDI0043-97-93 06:52:00 Test Item Value Reference Range Interpretation Comments RDW (test code = RDW) 14.5 11.5-14.5 N [facility]anoYyzettqDAQBZJBVWM7583-26-38 06:52:00 Test Item Value Reference Range Interpretation Comments Platelet (test code = Platelet) 213 133-450 N [facility]anoKzoudayNTRNFNEBXV1587-09-01 06:52:00 Test Item Value Reference Range Interpretation Comments MPV (test code = MPV) 9.5 7.4-10.4 N [facility]anoAnufzjiNNSWJARVML4851-77-62 06:52:00 Test Item Value Reference Range Interpretation Comments Segs-Bands # (test code = Segs-Bands #) 7.7 1.5-8.1 N [facility]anoDrjjfljQMBCOKKRBI2004-58-14 06:52:00 Test Item Value Reference Range Interpretation Comments Basophils (test code = 0.3 See_Comment N [Aut omated message] The Basophils) system which ge nerated this result tra nsmitted reference range : <=1.0. The reference r leatha was not used to int erpret this result as normal/abnormal . [facility]anoIrirhhtZKBDQFSKDN7573-73-36 06:52:00 Test Item Value Reference Range Interpretation Comments Monocytes # (test code 0.6 See_Comment N [Aut omated message] The = Monocytes #) system which generated this result tra nsmitted reference range : <=0.8. The reference r leatha was not used to int erpret this result as normal/abnormal . [facility]anoWnuhphnWWFGKCVLKW6940-12-49 06:52:00 Test Item Value Reference Range Interpretation Comments Lymphocytes # (test code = Lymphocytes 0.9 1.0-5.5 L #) [facility]anoJmejmrzTVBYWGRGJX3472-05-27 06:52:00 Test Item Value Reference Range Interpretation Comments Lymphocytes (test code = Lymphocytes) 9.5 20.0-40.0 L [facility]anoBkfworfYMOQCFBEHB2888-04-12 06:52:00 Test Item Value Reference Range Interpretation Comments Segs (test code = Segs) 84.1 45.0-75.0 H [facility]anoOdchvtiYFIWMBQZNC7885-18-30 06:52:00 Test Item Value Reference Range Interpretation Comments Monocytes (test code = Monocytes) 6.0 2.0-12.0 N [facility]anoMjqnikwSMCXPXBHBQ1983-56-97 06:52:00 Test Item Value Reference Range Interpretation Comments Eosinophils (test code = 0.1 See_Comment N [A utomated message] The Eosinophils) system which ge nerated this result tra nsmitted reference range : <=4.0. The reference r leatha was not used to int erpret this result as normal/abnormal . [facility] NorthwestIefatpdQSJAZOTTH8109-16-01 06:52:00 Test Item Value Reference Range Interpretation Comments Phosphorus (test code = Phosphorus) 3.5 2.5-4.5 N [facility] NorthwestPzeadtlBJMQAUSHE9391-57-28 06:52:00 Test Item Value Reference Range Interpretation Comments AGAP (test code = AGAP) 13.4 10.0-20.0 N [facility] NorthwestKxiqwhtBAZYZZSJP5975-98-19 06:52:00 Test Item Value Reference Range Interpretation Comments Glucose Lvl (test code = Glucose Lvl) 181 70-99 H [facility] NorthwestIipibnrVHANUNOJE6782-29-67 06:52:00 Test Item Value Reference Range Interpretation Comments Creatinine Lvl (test code = Creatinine 0.9 0.5-1.4 N Lvl) [facility] NorthwestNtamujkGZJZFZWVL5137-15-35 06:52:00 Test Item Value Reference Range Interpretation Comments BUN (test code = BUN) 17 7-22 N [facility] NorthwestIsgtlsbOAMWNMJQR8104-57-24 06:52:00 Test Item Value Reference Range Interpretation Comments Sodium Lvl (test code = Sodium Lvl) 140 135-145 N [facility] NorthwestJekmalsTZSAOTLQM7002-70-99 06:52:00 Test Item Value Reference Range Interpretation Comments Chloride Lvl (test code = Chloride Lvl) 105 95-109 N [facility] NorthwestFawufxuLCFSCSCZV9740-15-94 06:52:00 Test Item Value Reference Range Interpretation Comments Calcium Lvl (test code = Calcium Lvl) 9.7 8.5-10.5 N [facility] NorthwestZhwjqjmRWPWZTUVV3252-82-72 06:52:00 Test Item Value Reference Range Interpretation Comments Potassium Lvl (test code = Potassium 4.4 3.5-5.1 N Lvl) [facility] NorthwestLpvcwreKJTDERRHP7283-49-65 06:52:00 Test Item Value Reference Range Interpretation Comments CO2 (test code = CO2) 26 24-32 N [facility] NorthwestPrjsfiwJEVWJHEYC4829-91-08 06:52:00 Test Item Value Reference Range Interpretation Comments eGFR (test code = eGFR) 65 [facility] NorthwestGmzrlskFVGDKHUFP1752-94-59 06:52:00 Test Item Value Reference Range Interpretation Comments Magnesium Lvl (test code = Magnesium 1.5 1.8-2.4 L Lvl) [facility]anoMdmztydDXZKBTOLFW4054-52-26 06:52:00 Test Item Value Reference Range Interpretation Comments RBC (test code = RBC) 4.85 4.20-5.40 N [facility]anoPttijsrWCUYXFNNDX1251-15-57 06:52:00 Test Item Value Reference Range Interpretation Comments WBC (test code = WBC) 9.2 3.7-10.4 N [facility]anoTjjxvbcCMFMBSBXQI6441-54-75 06:52:00 Test Item Value Reference Range Interpretation Comments Hgb (test code = Hgb) 14.9 12.0-16.0 N [facility]anoHpnmycfXAQJDZLZJG4009-56-74 06:52:00 Test Item Value Reference Range Interpretation Comments MCHC (test code = MCHC) 33.3 32.0-36.0 N [facility]anoBdrixrjPXJCDJTSET0198-22-23 06:52:00 Test Item Value Reference Range Interpretation Comments MCH (test code = MCH) 30.7 pg 27.0-31.0 N [facility]anoErwssarQGRYXDVXFX0752-56-57 06:52:00 Test Item Value Reference Range Interpretation Comments Hct (test code = Hct) 44.9 36.0-48.0 N [facility]anoSkqankhBEGJGRGJWP6129-86-74 06:52:00 Test Item Value Reference Range Interpretation Comments MCV (test code = MCV) 92.4 81.0-99.0 N [facility]anoOgflrzfGEXBDBZBUW0838-22-41 06:52:00 Test Item Value Reference Range Interpretation Comments RDW (test code = RDW) 14.5 11.5-14.5 N [facility]anoUtmizfaNFNOPBJILI1503-56-74 06:52:00 Test Item Value Reference Range Interpretation Comments Platelet (test code = Platelet) 213 133-450 N [facility]anoUscvyveBYHDJIMDUI1068-87-65 06:52:00 Test Item Value Reference Range Interpretation Comments MPV (test code = MPV) 9.5 7.4-10.4 N [facility]anoCsloitkAWOMLPGKYG4904-68-56 06:52:00 Test Item Value Reference Range Interpretation Comments Segs-Bands # (test code = Segs-Bands #) 7.7 1.5-8.1 N [facility]anoVlvdltyDZVRIXFEFT1230-27-05 06:52:00 Test Item Value Reference Range Interpretation Comments Basophils (test code = 0.3 See_Comment N [Aut omated message] The Basophils) system which ge nerated this result tra nsmitted reference range : <=1.0. The reference r leatha was not used to int erpret this result as normal/abnormal . [facility]anoYusccsrMKWWOITUPA0719-12-54 06:52:00 Test Item Value Reference Range Interpretation Comments Monocytes # (test code 0.6 See_Comment N [Aut omated message] The = Monocytes #) system which generated this result tra nsmitted reference range : <=0.8. The reference r leatha was not used to int erpret this result as normal/abnormal . [facility]anoZoeubbwNPDQVZXTKS4020-50-57 06:52:00 Test Item Value Reference Range Interpretation Comments Lymphocytes # (test code = Lymphocytes 0.9 1.0-5.5 L #) [facility]anoRcvhihcWPETNPFZVB1139-23-64 06:52:00 Test Item Value Reference Range Interpretation Comments Lymphocytes (test code = Lymphocytes) 9.5 20.0-40.0 L [facility]anoIvfrulmZQWFHBUEMH0994-55-80 06:52:00 Test Item Value Reference Range Interpretation Comments Segs (test code = Segs) 84.1 45.0-75.0 H [facility]anoIyqckgiXTPCNAITYZ3011-36-63 06:52:00 Test Item Value Reference Range Interpretation Comments Monocytes (test code = Monocytes) 6.0 2.0-12.0 N [facility]anoItieebcTXTPVOKPNS3074-08-64 06:52:00 Test Item Value Reference Range Interpretation Comments Eosinophils (test code = 0.1 See_Comment N [A utomated message] The Eosinophils) system which ge nerated this result tra nsmitted reference range : <=4.0. The reference r leatha was not used to int erpret this result as normal/abnormal . [facility] NorthwestFsczybbDSQCRUHZF5285-72-75 06:52:00 Test Item Value Reference Range Interpretation Comments Phosphorus (test code = Phosphorus) 3.5 2.5-4.5 N [facility] NorthwestNtrzzyeVAZGRLEUV2754-98-68 06:52:00 Test Item Value Reference Range Interpretation Comments AGAP (test code = AGAP) 13.4 10.0-20.0 N [facility] NorthwestVbmsjmwDEGSHWRWU2346-50-79 06:52:00 Test Item Value Reference Range Interpretation Comments Glucose Lvl (test code = Glucose Lvl) 181 70-99 H [facility] NorthwestAwyclelSVEYPDBMW1392-91-44 06:52:00 Test Item Value Reference Range Interpretation Comments Creatinine Lvl (test code = Creatinine 0.9 0.5-1.4 N Lvl) [facility] NorthwestDoraobyHCPJRMADA4622-61-08 06:52:00 Test Item Value Reference Range Interpretation Comments BUN (test code = BUN) 17 7-22 N [facility] NorthwestXcosvseULLDVMLKZ5919-69-33 06:52:00 Test Item Value Reference Range Interpretation Comments Sodium Lvl (test code = Sodium Lvl) 140 135-145 N [facility] NorthwestFigutkuZVORSRKWK7957-44-94 06:52:00 Test Item Value Reference Range Interpretation Comments Chloride Lvl (test code = Chloride Lvl) 105 95-109 N [facility] NorthwestRfcpwjzAPSQYANJV4893-68-40 06:52:00 Test Item Value Reference Range Interpretation Comments Calcium Lvl (test code = Calcium Lvl) 9.7 8.5-10.5 N [facility] NorthwestEbariomFGQUPPAFK8488-44-59 06:52:00 Test Item Value Reference Range Interpretation Comments Potassium Lvl (test code = Potassium 4.4 3.5-5.1 N Lvl) [facility] NorthwestUrterxpSLBMPEDAT5600-94-88 06:52:00 Test Item Value Reference Range Interpretation Comments CO2 (test code = CO2) 26 24-32 N [facility] NorthwestLxkvzhmMJSMJZSKW6005-33-55 06:52:00 Test Item Value Reference Range Interpretation Comments eGFR (test code = eGFR) 65 [facility] NorthwestBjgcynfWIPYYLRTW5199-59-00 06:52:00 Test Item Value Reference Range Interpretation Comments Magnesium Lvl (test code = Magnesium 1.5 1.8-2.4 L Lvl) [facility]anoKufusrrNBKMFYTNVR2943-85-41 06:52:00 Test Item Value Reference Range Interpretation Comments RBC (test code = RBC) 4.85 4.20-5.40 N [facility]anoIiyynpaEHYVINNKSK5611-14-73 06:52:00 Test Item Value Reference Range Interpretation Comments WBC (test code = WBC) 9.2 3.7-10.4 N [facility]anoAelxubxKCRCGDOJCO8240-46-41 06:52:00 Test Item Value Reference Range Interpretation Comments Hgb (test code = Hgb) 14.9 12.0-16.0 N [facility]anoIgdbhexXJKDAMNMQI7938-50-85 06:52:00 Test Item Value Reference Range Interpretation Comments MCHC (test code = MCHC) 33.3 32.0-36.0 N [facility]anoExkgvjmZXEYJGZRGA3389-11-17 06:52:00 Test Item Value Reference Range Interpretation Comments MCH (test code = MCH) 30.7 pg 27.0-31.0 N [facility]anoVfxfabuCNVEWMJWRB9735-59-10 06:52:00 Test Item Value Reference Range Interpretation Comments Hct (test code = Hct) 44.9 36.0-48.0 N [facility]anoKkhqgsiCAVVDFHVGU7871-22-15 06:52:00 Test Item Value Reference Range Interpretation Comments MCV (test code = MCV) 92.4 81.0-99.0 N [facility]anoEgnomouSYCEGGCOFE8488-45-50 06:52:00 Test Item Value Reference Range Interpretation Comments RDW (test code = RDW) 14.5 11.5-14.5 N [facility]anoTcmuwtbNALQPXZFAU2286-21-87 06:52:00 Test Item Value Reference Range Interpretation Comments Platelet (test code = Platelet) 213 133-450 N [facility]anoAhrizknLYLFJLRBEL3558-67-12 06:52:00 Test Item Value Reference Range Interpretation Comments MPV (test code = MPV) 9.5 7.4-10.4 N [facility]anoIqlzlyyAGTRFAOMLZ5872-03-14 06:52:00 Test Item Value Reference Range Interpretation Comments Segs-Bands # (test code = Segs-Bands #) 7.7 1.5-8.1 N [facility]anoQxvuszdRQWSGCGYRT7348-35-52 06:52:00 Test Item Value Reference Range Interpretation Comments Basophils (test code = 0.3 See_Comment N [Aut omated message] The Basophils) system which ge nerated this result tra nsmitted reference range : <=1.0. The reference r leatha was not used to int erpret this result as normal/abnormal . [facility]anoGwqksxmSRAZNHYEAL3268-40-20 06:52:00 Test Item Value Reference Range Interpretation Comments Monocytes # (test code 0.6 See_Comment N [Aut omated message] The = Monocytes #) system which generated this result tra nsmitted reference range : <=0.8. The reference r leatha was not used to int erpret this result as normal/abnormal . [facility]anoZruolllQIOMFYSLVQ1002-19-93 06:52:00 Test Item Value Reference Range Interpretation Comments Lymphocytes # (test code = Lymphocytes 0.9 1.0-5.5 L #) [facility]anoAionqvwJKGPMMKDIN3540-24-86 06:52:00 Test Item Value Reference Range Interpretation Comments Lymphocytes (test code = Lymphocytes) 9.5 20.0-40.0 L [facility]anoLwbuxndLWFMWTJOGK1868-59-00 06:52:00 Test Item Value Reference Range Interpretation Comments Segs (test code = Segs) 84.1 45.0-75.0 H [facility]anoJqnoxbtAGKNYMTYMJ5399-22-74 06:52:00 Test Item Value Reference Range Interpretation Comments Monocytes (test code = Monocytes) 6.0 2.0-12.0 N [facility]anoFkdfwdxHCYRDNTZNM4423-54-04 06:52:00 Test Item Value Reference Range Interpretation Comments Eosinophils (test code = 0.1 See_Comment N [A utomated message] The Eosinophils) system which ge nerated this result tra nsmitted reference range : <=4.0. The reference r leatha was not used to int erpret this result as normal/abnormal . [facility] NorthwestBxuxemmQXLNAJNPR7921-21-51 06:52:00 Test Item Value Reference Range Interpretation Comments Phosphorus (test code = Phosphorus) 3.5 2.5-4.5 N [facility] NorthwestDrvmyisXPBFQRVJY9359-98-52 06:52:00 Test Item Value Reference Range Interpretation Comments AGAP (test code = AGAP) 13.4 10.0-20.0 N [facility] NorthwestNusdnlyTVJVOMMTE9925-69-23 06:52:00 Test Item Value Reference Range Interpretation Comments Glucose Lvl (test code = Glucose Lvl) 181 70-99 H [facility] NorthwestHxoxugxFXWIETYIY5196-77-39 06:52:00 Test Item Value Reference Range Interpretation Comments Creatinine Lvl (test code = Creatinine 0.9 0.5-1.4 N Lvl) [facility] NorthwestRphvtfmGKPNPBYNX2585-28-58 06:52:00 Test Item Value Reference Range Interpretation Comments BUN (test code = BUN) 17 7-22 N [facility] NorthwestXapchoqWATUJURZX0638-02-83 06:52:00 Test Item Value Reference Range Interpretation Comments Sodium Lvl (test code = Sodium Lvl) 140 135-145 N [facility] NorthwestKcwspcrLEDRCVVZE1759-60-84 06:52:00 Test Item Value Reference Range Interpretation Comments Chloride Lvl (test code = Chloride Lvl) 105 95-109 N [facility] NorthwestJnkjfjdXVNWSVIOK5123-71-57 06:52:00 Test Item Value Reference Range Interpretation Comments Calcium Lvl (test code = Calcium Lvl) 9.7 8.5-10.5 N [facility] NorthwestYqhyxjfVNEBJXSDV7717-19-86 06:52:00 Test Item Value Reference Range Interpretation Comments Potassium Lvl (test code = Potassium 4.4 3.5-5.1 N Lvl) [facility] NorthwestXfwuzvsIGURZXEGF2714-63-70 06:52:00 Test Item Value Reference Range Interpretation Comments CO2 (test code = CO2) 26 24-32 N [facility] NorthwestWsabcppKLWSRBMOW5475-30-57 06:52:00 Test Item Value Reference Range Interpretation Comments eGFR (test code = eGFR) 65 [facility] NorthwestIfdqitkWDAPQDPJZ3778-58-03 06:52:00 Test Item Value Reference Range Interpretation Comments Magnesium Lvl (test code = Magnesium 1.5 1.8-2.4 L Lvl) [facility]anoSbnbtvvFUMUCHCUMB3974-60-87 06:52:00 Test Item Value Reference Range Interpretation Comments RBC (test code = RBC) 4.85 4.20-5.40 N [facility]anoDxfoadhQWKNYAUKJA6938-81-68 06:52:00 Test Item Value Reference Range Interpretation Comments WBC (test code = WBC) 9.2 3.7-10.4 N [facility]anoQxsoypsXWWBBMXZOI1795-60-19 06:52:00 Test Item Value Reference Range Interpretation Comments Hgb (test code = Hgb) 14.9 12.0-16.0 N [facility]anoGpvtqroXCMXJOFVJV5152-40-61 06:52:00 Test Item Value Reference Range Interpretation Comments MCHC (test code = MCHC) 33.3 32.0-36.0 N [facility]anoPvogenkAUPBZHSAUO9641-44-43 06:52:00 Test Item Value Reference Range Interpretation Comments MCH (test code = MCH) 30.7 pg 27.0-31.0 N [facility]anoCugbjhjWDPTZUDESJ4876-87-40 06:52:00 Test Item Value Reference Range Interpretation Comments Hct (test code = Hct) 44.9 36.0-48.0 N [facility]anoWcueiplQQGMKITUUM7325-40-42 06:52:00 Test Item Value Reference Range Interpretation Comments MCV (test code = MCV) 92.4 81.0-99.0 N [facility]anoOksfcgqZIJODUKOVA3841-54-70 06:52:00 Test Item Value Reference Range Interpretation Comments RDW (test code = RDW) 14.5 11.5-14.5 N [facility]anoXrnciaoILZSUKNIMU2389-95-36 06:52:00 Test Item Value Reference Range Interpretation Comments Platelet (test code = Platelet) 213 133-450 N [facility]anoBpjixtsJRHBBFEUYB6997-20-89 06:52:00 Test Item Value Reference Range Interpretation Comments MPV (test code = MPV) 9.5 7.4-10.4 N [facility]anoWrezeabFYIQGNCSNC9740-11-12 06:52:00 Test Item Value Reference Range Interpretation Comments Segs-Bands # (test code = Segs-Bands #) 7.7 1.5-8.1 N [facility]anoBbwbhcbXMPUKDKZBF4602-70-87 06:52:00 Test Item Value Reference Range Interpretation Comments Basophils (test code = 0.3 See_Comment N [Aut omated message] The Basophils) system which ge nerated this result tra nsmitted reference range : <=1.0. The reference r leatha was not used to int erpret this result as normal/abnormal . [facility]anoWsyzoypMCMCITSMLA6720-36-68 06:52:00 Test Item Value Reference Range Interpretation Comments Monocytes # (test code 0.6 See_Comment N [Aut omated message] The = Monocytes #) system which generated this result tra nsmitted reference range : <=0.8. The reference r leatha was not used to int erpret this result as normal/abnormal . [facility]anoGnfuxmbGVZNTDUXVF2086-28-44 06:52:00 Test Item Value Reference Range Interpretation Comments Lymphocytes # (test code = Lymphocytes 0.9 1.0-5.5 L #) [facility]anoQrabjseITDYDOZAYH1580-55-62 06:52:00 Test Item Value Reference Range Interpretation Comments Lymphocytes (test code = Lymphocytes) 9.5 20.0-40.0 L [facility]anoOiwiimvVGJHZAIQKR9759-53-05 06:52:00 Test Item Value Reference Range Interpretation Comments Segs (test code = Segs) 84.1 45.0-75.0 H [facility]anoMceswfmBXUQBRIYII1844-42-63 06:52:00 Test Item Value Reference Range Interpretation Comments Monocytes (test code = Monocytes) 6.0 2.0-12.0 N [facility]anoIovlqjoBWWEOBABTT8656-00-76 06:52:00 Test Item Value Reference Range Interpretation Comments Eosinophils (test code = 0.1 See_Comment N [A utomated message] The Eosinophils) system which ge nerated this result tra nsmitted reference range : <=4.0. The reference r leatha was not used to int erpret this result as normal/abnormal . [facility] NorthwestPiuhlwrNXUHYVEYB6154-53-93 06:52:00 Test Item Value Reference Range Interpretation Comments Phosphorus (test code = Phosphorus) 3.5 2.5-4.5 N [facility] NorthwestOfvezvzMMDPDSIVT6489-95-40 06:52:00 Test Item Value Reference Range Interpretation Comments AGAP (test code = AGAP) 13.4 10.0-20.0 N [facility] NorthwestNbuydmcROVNIIIRS7529-81-71 06:52:00 Test Item Value Reference Range Interpretation Comments Glucose Lvl (test code = Glucose Lvl) 181 70-99 H [facility] NorthwestVkykqorBJSNODNSL1826-35-50 06:52:00 Test Item Value Reference Range Interpretation Comments Creatinine Lvl (test code = Creatinine 0.9 0.5-1.4 N Lvl) [facility] NorthwestKhwsluhOWXIRWENF2559-02-13 06:52:00 Test Item Value Reference Range Interpretation Comments BUN (test code = BUN) 17 7-22 N [facility] NorthwestAghwgzgMLYAVRYBL2757-16-61 06:52:00 Test Item Value Reference Range Interpretation Comments Sodium Lvl (test code = Sodium Lvl) 140 135-145 N [facility] NorthwestFreukxfDMLHMKFAA8207-23-73 06:52:00 Test Item Value Reference Range Interpretation Comments Chloride Lvl (test code = Chloride Lvl) 105 95-109 N [facility] NorthwestYfzusqcAGEUXZTCB8022-73-88 06:52:00 Test Item Value Reference Range Interpretation Comments Calcium Lvl (test code = Calcium Lvl) 9.7 8.5-10.5 N [facility] NorthwestPrvkbsxHXBYKHZBV1796-66-65 06:52:00 Test Item Value Reference Range Interpretation Comments Potassium Lvl (test code = Potassium 4.4 3.5-5.1 N Lvl) [facility] NorthwestNkbkitnAVATGLTGJ4903-95-86 06:52:00 Test Item Value Reference Range Interpretation Comments CO2 (test code = CO2) 26 24-32 N [facility] NorthwestOqiyafvPHYTUXYUC8609-95-58 06:52:00 Test Item Value Reference Range Interpretation Comments eGFR (test code = eGFR) 65 [facility] NorthwestAsnqradYMRTVBQOI5037-26-07 06:52:00 Test Item Value Reference Range Interpretation Comments Magnesium Lvl (test code = Magnesium 1.5 1.8-2.4 L Lvl) [facility]anoDfckcmyNFCSYNIJNF8728-54-92 06:52:00 Test Item Value Reference Range Interpretation Comments RBC (test code = RBC) 4.85 4.20-5.40 N [facility] PlanoBylcneuDGOSOWPAZX5540-78-60 06:52:00 Test Item Value Reference Range Interpretation Comments WBC (test code = WBC) 9.2 3.7-10.4 N [facility] PlanoXlibitlBZTZEVNRGO3970-37-67 06:52:00 Test Item Value Reference Range Interpretation Comments Hgb (test code = Hgb) 14.9 12.0-16.0 N [facility]anoPdcsjnfMNYLKOVVTC9001-00-23 06:52:00 Test Item Value Reference Range Interpretation Comments MCHC (test code = MCHC) 33.3 32.0-36.0 N [facility] [facility]ymjaaK[facility]JPZKMWA9119[facility] 06:52:00 Test Item Value Reference Range Interpretation Comments MCH (test code = MCH) 30.7 pg 27.0-31.0 N [facility]LidggafPFZCZEIQTH8155-98-31 06:52:00 Test Item Value Reference Range Interpretation Comments Hct (test code = Hct) 44.9 36.0-48.0 N [facility]anoDuyspgpCITQLGHRUT5704-78-19 06:52:00 Test Item Value Reference Range Interpretation Comments MCV (test code = MCV) 92.4 81.0-99.0 N [facility]anoXdwzhraIOINNLXYWR5833-48-22 06:52:00 Test Item Value Reference Range Interpretation Comments RDW (test code = RDW) 14.5 11.5-14.5 N [facility]anoZaxtgjuPQLXXVFLST8801-93-60 06:52:00 Test Item Value Reference Range Interpretation Comments Platelet (test code = Platelet) 213 133-450 N [facility]anoLsilfvjZNNBCBXEWB5589-65-94 06:52:00 Test Item Value Reference Range Interpretation Comments MPV (test code = MPV) 9.5 7.4-10.4 N [facility]anoCpiereaRKDAJHSXLR2201-04-38 06:52:00 Test Item Value Reference Range Interpretation Comments Segs-Bands # (test code = Segs-Bands #) 7.7 1.5-8.1 N [facility]anoWhfmpkwGAYEPZWOAI4621-27-66 06:52:00 Test Item Value Reference Range Interpretation Comments Basophils (test code = 0.3 See_Comment N [Aut omated message] The Basophils) system which ge nerated this result tra nsmitted reference range : <=1.0. The reference r letaha was not used to int erpret this result as normal/abnormal . [facility]anoMaxambdQGRPCLAVNH4399-61-76 06:52:00 Test Item Value Reference Range Interpretation Comments Monocytes # (test code 0.6 See_Comment N [Aut omated message] The = Monocytes #) system which generated this result tra nsmitted reference range : <=0.8. The reference r leatha was not used to int erpret this result as normal/abnormal . [facility]anoLriimnyKLZQIHQCET6675-71-86 06:52:00 Test Item Value Reference Range Interpretation Comments Lymphocytes # (test code = Lymphocytes 0.9 1.0-5.5 L #) [facility]anoIlqnsdbELYTZMPHPO6419-76-52 06:52:00 Test Item Value Reference Range Interpretation Comments Lymphocytes (test code = Lymphocytes) 9.5 20.0-40.0 L [facility]anoEkosgssUEOENNATMD8419-96-63 06:52:00 Test Item Value Reference Range Interpretation Comments Segs (test code = Segs) 84.1 45.0-75.0 H [facility]anoPvkwgsgQRPQIIRJOF3635-03-63 06:52:00 Test Item Value Reference Range Interpretation Comments Monocytes (test code = Monocytes) 6.0 2.0-12.0 N [facility]JA1625-73-21 06:52:00 Test Item Value Reference Range Interpretation Comments Eosinophils (test code = 0.1 See_Comment N [A utomated message] The Eosinophils) system which ge nerated this result tra nsmitted reference range : <=4.0. The reference r leatha was not used to int erpret this result as normal/abnormal . [facility] NorthwestEgloyheQNYCOJKFU0728-29-11 19:08:00 Test Item Value Reference Range Interpretation Comments POC A Glu (test code = POC A Glu) 152 70-99 H [facility] NorthwestTzyafhrHFQEMSVDY5921-60-80 19:08:00 Test Item Value Reference Range Interpretation Comments POC A LA (test code = POC A LA) 0.7 0.5-2.2 N [facility] NorthwestDylobdqKGVGWEBLL7661-39-52 19:08:00 Test Item Value Reference Range Interpretation Comments POC A HCO3 (test code = POC A HCO3) 24 22-26 N [facility] NorthwestTlwejmvTKZETDFVU6444-70-45 19:08:00 Test Item Value Reference Range Interpretation Comments POC A BE (test code = -1 See_Comment N [Auto mated message] The POC A BE) system which ge nerated this result transmit juan reference range : <=2. The reference range was not used to interpr et this result as lashonda l/abnormal. [facility] NorthwestVtpraioJTUSESFTE4378-92-85 19:08:00 Test Item Value Reference Range Interpretation Comments POC A Hct (test code = POC A Hct) 35.0 36.0-48.0 L [facility] NorthwestKykahexDNLDTIBTC0693-48-30 19:08:00 Test Item Value Reference Range Interpretation Comments POC A O2 Sat (test code = POC A O2 Sat) 96.0 95.0-100.0 N [facility] NorthwestUurbfxnDGAYKPYGV1236-29-39 19:08:00 Test Item Value Reference Range Interpretation Comments POC A K (test code = POC A K) 3.4 3.5-5.1 L [facility] NorthwestKudvlbfUIXWCKKLJ9739-57-96 19:08:00 Test Item Value Reference Range Interpretation Comments POC A Na (test code = POC A Na) 138 135-145 N [facility] NorthwestVwpuncvAZQNFVHYL3395-26-39 19:08:00 Test Item Value Reference Range Interpretation Comments POC A PCO2 (test code = POC A PCO2) 40 35-45 N [facility] NorthwestPstemvyHVZLNUYVD9139-77-30 19:08:00 Test Item Value Reference Range Interpretation Comments POC A Ca Ion (test code = POC A Ca Ion) 1.26 1.16-1.30 N [facility] NorthwestOrxhepyVFHRXYAPA1664-52-76 19:08:00 Test Item Value Reference Range Interpretation Comments POC A Source (test code = POC A Source) ART [facility] NorthwestClyavdkYQUSQILLF1236-45-21 19:08:00 Test Item Value Reference Range Interpretation Comments POC A Temp (test code = POC A Temp) 37.0 [facility] NorthwestKhmzetwMLPRSLFQG9419-08-09 19:08:00 Test Item Value Reference Range Interpretation Comments POC A PO2 (test code = POC A PO2) 85 80-100 N [facility] NorthwestMqqeirbBKVTQMOEX3318-56-29 19:08:00 Test Item Value Reference Range Interpretation Comments POC A pH (test code = POC A pH) 7.39 7.35-7.45 N [facility] NorthwestRmugwshDKPJSSCVL7021-18-13 19:08:00 Test Item Value Reference Range Interpretation Comments POC A Glu (test code = POC A Glu) 152 70-99 H [facility] NorthwestVsfjuhbRWTPXFCCE0179-46-55 19:08:00 Test Item Value Reference Range Interpretation Comments POC A LA (test code = POC A LA) 0.7 0.5-2.2 N [facility] NorthwestGacbecmZSHYUMBIK1119-73-86 19:08:00 Test Item Value Reference Range Interpretation Comments POC A HCO3 (test code = POC A HCO3) 24 22-26 N [facility] NorthwestZjebkwmWCVSGGVUA3825-28-57 19:08:00 Test Item Value Reference Range Interpretation Comments POC A BE (test code = -1 See_Comment N [Auto mated message] The POC A BE) system which ge nerated this result transmit juan reference range : <=2. The reference range was not used to interpr et this result as lashonda l/abnormal. [facility] NorthwestLddrdvpSXKKGYWUU1998-49-40 19:08:00 Test Item Value Reference Range Interpretation Comments POC A Hct (test code = POC A Hct) 35.0 36.0-48.0 L [facility] NorthwestMhtntioAXSTTFBUR5697-63-76 19:08:00 Test Item Value Reference Range Interpretation Comments POC A O2 Sat (test code = POC A O2 Sat) 96.0 95.0-100.0 N [facility] NorthwestMqbkjyyTERWJTAAH2600-63-30 19:08:00 Test Item Value Reference Range Interpretation Comments POC A K (test code = POC A K) 3.4 3.5-5.1 L [facility] NorthwestIdybqvmOULUDACRW6986-57-39 19:08:00 Test Item Value Reference Range Interpretation Comments POC A Na (test code = POC A Na) 138 135-145 N [facility] NorthwestFsveixbEBYIDJAQA4904-76-42 19:08:00 Test Item Value Reference Range Interpretation Comments POC A PCO2 (test code = POC A PCO2) 40 35-45 N [facility] NorthwestFtolkitXLYLSRFAO5936-25-92 19:08:00 Test Item Value Reference Range Interpretation Comments POC A Ca Ion (test code = POC A Ca Ion) 1.26 1.16-1.30 N [facility] NorthwestFshkeljLNRGILFLX8662-04-90 19:08:00 Test Item Value Reference Range Interpretation Comments POC A Source (test code = POC A Source) ART [facility] NorthwestVxdtumgWOFOJQYWJ0848-77-72 19:08:00 Test Item Value Reference Range Interpretation Comments POC A Temp (test code = POC A Temp) 37.0 [facility] NorthwestKlzndvzGQKRVEJQY7045-23-64 19:08:00 Test Item Value Reference Range Interpretation Comments POC A PO2 (test code = POC A PO2) 85 80-100 N [facility] NorthwestJzzybifWIUTOFORB2569-10-67 19:08:00 Test Item Value Reference Range Interpretation Comments POC A pH (test code = POC A pH) 7.39 7.35-7.45 N [facility] NorthwestZbdumrzMDEBFTZWR9612-91-87 19:08:00 Test Item Value Reference Range Interpretation Comments POC A Glu (test code = POC A Glu) 152 70-99 H [facility] NorthwestMqjfmzdORDOSWZDM3456-06-87 19:08:00 Test Item Value Reference Range Interpretation Comments POC A LA (test code = POC A LA) 0.7 0.5-2.2 N [facility] NorthwestHunvjurUWBIASBQF9421-39-15 19:08:00 Test Item Value Reference Range Interpretation Comments POC A HCO3 (test code = POC A HCO3) 24 22-26 N [facility] NorthwestAunrvagRNKTCPXNH7794-01-58 19:08:00 Test Item Value Reference Range Interpretation Comments POC A BE (test code = -1 See_Comment N [Auto mated message] The POC A BE) system which ge nerated this result transmit juan reference range : <=2. The reference range was not used to interpr et this result as lashonda l/abnormal. [facility] NorthwestRdcniozLFUKTZJLM4509-42-66 19:08:00 Test Item Value Reference Range Interpretation Comments POC A Hct (test code = POC A Hct) 35.0 36.0-48.0 L [facility] NorthwestWsdtpstRGUSTJXUF4744-04-45 19:08:00 Test Item Value Reference Range Interpretation Comments POC A O2 Sat (test code = POC A O2 Sat) 96.0 95.0-100.0 N [facility] NorthwestQnltmydOCBABPOWZ7201-28-65 19:08:00 Test Item Value Reference Range Interpretation Comments POC A K (test code = POC A K) 3.4 3.5-5.1 L [facility] NorthwestHlzsssbBXCOXIPDG8047-28-14 19:08:00 Test Item Value Reference Range Interpretation Comments POC A Na (test code = POC A Na) 138 135-145 N [facility] NorthwestGarnhjuLYJEUZMIH3364-66-03 19:08:00 Test Item Value Reference Range Interpretation Comments POC A PCO2 (test code = POC A PCO2) 40 35-45 N [facility] NorthwestDooevehXDRQROCKC3410-14-63 19:08:00 Test Item Value Reference Range Interpretation Comments POC A Ca Ion (test code = POC A Ca Ion) 1.26 1.16-1.30 N [facility] NorthwestBmiougvOCVFQRVMP4231-69-10 19:08:00 Test Item Value Reference Range Interpretation Comments POC A Source (test code = POC A Source) ART [facility] NorthwestCjbfrslTXFUITOWH6546-06-94 19:08:00 Test Item Value Reference Range Interpretation Comments POC A Temp (test code = POC A Temp) 37.0 [facility] NorthwestAdbqqwjAKMBUJNZH0959-65-65 19:08:00 Test Item Value Reference Range Interpretation Comments POC A PO2 (test code = POC A PO2) 85 80-100 N [facility] NorthwestTbcdgpkMSVJQVQKE3982-46-34 19:08:00 Test Item Value Reference Range Interpretation Comments POC A pH (test code = POC A pH) 7.39 7.35-7.45 N [facility] NorthwestPptcqxdICNSWRTET0554-46-68 19:08:00 Test Item Value Reference Range Interpretation Comments POC A Glu (test code = POC A Glu) 152 70-99 H [facility] NorthwestVssvtoaNCJMJPUQF0455-21-30 19:08:00 Test Item Value Reference Range Interpretation Comments POC A LA (test code = POC A LA) 0.7 0.5-2.2 N [facility] NorthwestQvszsqaOIHTNNPCH7874-35-59 19:08:00 Test Item Value Reference Range Interpretation Comments POC A HCO3 (test code = POC A HCO3) 24 22-26 N [facility] NorthwestMbxpaaaPOKZFPZAH7867-60-47 19:08:00 Test Item Value Reference Range Interpretation Comments POC A BE (test code = -1 See_Comment N [Auto mated message] The POC A BE) system which ge nerated this result transmit juan reference range : <=2. The reference range was not used to interpr et this result as lashonda l/abnormal. [facility] NorthwestOsyebzoLUPKJVUZX6528-91-51 19:08:00 Test Item Value Reference Range Interpretation Comments POC A Hct (test code = POC A Hct) 35.0 36.0-48.0 L [facility] NorthwestHlvptdwZUGAZCIWV4564-13-77 19:08:00 Test Item Value Reference Range Interpretation Comments POC A O2 Sat (test code = POC A O2 Sat) 96.0 95.0-100.0 N [facility] NorthwestPtqwnceQCYZYHLRR0627-96-03 19:08:00 Test Item Value Reference Range Interpretation Comments POC A K (test code = POC A K) 3.4 3.5-5.1 L [facility] NorthwestKlhwvtqKPCZBHAKY3384-74-43 19:08:00 Test Item Value Reference Range Interpretation Comments POC A Na (test code = POC A Na) 138 135-145 N [facility] NorthwestCbplmzbBFGIEDBFZ1205-95-72 19:08:00 Test Item Value Reference Range Interpretation Comments POC A PCO2 (test code = POC A PCO2) 40 35-45 N [facility] NorthwestWojtlfmSZMKDCIJE7775-65-66 19:08:00 Test Item Value Reference Range Interpretation Comments POC A Ca Ion (test code = POC A Ca Ion) 1.26 1.16-1.30 N [facility] NorthwestGcoyjpqVIZBMGWKK2148-82-32 19:08:00 Test Item Value Reference Range Interpretation Comments POC A Source (test code = POC A Source) ART [facility] NorthwestHqmhgiuZQCWSFBJJ1456-45-82 19:08:00 Test Item Value Reference Range Interpretation Comments POC A Temp (test code = POC A Temp) 37.0 [facility] NorthwestHifwaixGKCVPDKBN1128-10-21 19:08:00 Test Item Value Reference Range Interpretation Comments POC A PO2 (test code = POC A PO2) 85 80-100 N [facility] NorthwestCrfuvjjPCMDKZHUP2071-56-80 19:08:00 Test Item Value Reference Range Interpretation Comments POC A pH (test code = POC A pH) 7.39 7.35-7.45 N [facility] NorthwestLvzooipUBAVGJSGA7963-97-31 19:08:00 Test Item Value Reference Range Interpretation Comments POC A Glu (test code = POC A Glu) 152 70-99 H [facility] NorthwestLoastowEQPZDOTWZ0282-91-43 19:08:00 Test Item Value Reference Range Interpretation Comments POC A LA (test code = POC A LA) 0.7 0.5-2.2 N [facility] NorthwestJtyrmemKKRNGSFDV2123-11-16 19:08:00 Test Item Value Reference Range Interpretation Comments POC A HCO3 (test code = POC A HCO3) 24 22-26 N [facility] NorthwestSreeqcvNELVNRPTA6043-42-00 19:08:00 Test Item Value Reference Range Interpretation Comments POC A BE (test code = -1 See_Comment N [Auto mated message] The POC A BE) system which ge nerated this result transmit juan reference range : <=2. The reference range was not used to interpr et this result as lashonda l/abnormal. [facility] NorthwestYqvsqyvBCXFYAAYO5941-60-37 19:08:00 Test Item Value Reference Range Interpretation Comments POC A Hct (test code = POC A Hct) 35.0 36.0-48.0 L [facility] NorthwestIlgestvYRZZUHXWN7337-30-62 19:08:00 Test Item Value Reference Range Interpretation Comments POC A O2 Sat (test code = POC A O2 Sat) 96.0 95.0-100.0 N [facility] NorthwestCjhwhrcCMFESIPSR1641-93-57 19:08:00 Test Item Value Reference Range Interpretation Comments POC A K (test code = POC A K) 3.4 3.5-5.1 L [facility] NorthwestLkzphgeGYENBBXIL1780-09-65 19:08:00 Test Item Value Reference Range Interpretation Comments POC A Na (test code = POC A Na) 138 135-145 N [facility] NorthwestCigwzsvKFWRGUWNJ8807-04-91 19:08:00 Test Item Value Reference Range Interpretation Comments POC A PCO2 (test code = POC A PCO2) 40 35-45 N [facility] NorthwestOwrbqmzWMTEAEDHQ0204-42-64 19:08:00 Test Item Value Reference Range Interpretation Comments POC A Ca Ion (test code = POC A Ca Ion) 1.26 1.16-1.30 N [facility] NorthwestRfdrfhyXSRJXWLTV8228-55-35 19:08:00 Test Item Value Reference Range Interpretation Comments POC A Source (test code = POC A Source) ART [facility] NorthwestYrpfdyrPHUDWMBCA4620-33-48 19:08:00 Test Item Value Reference Range Interpretation Comments POC A Temp (test code = POC A Temp) 37.0 [facility] NorthwestXmouqjzYRETAOCUT6708-96-82 19:08:00 Test Item Value Reference Range Interpretation Comments POC A PO2 (test code = POC A PO2) 85 80-100 N [facility] NorthwestBhlbqqtSXLEIXBFX7811-24-37 19:08:00 Test Item Value Reference Range Interpretation Comments POC A pH (test code = POC A pH) 7.39 7.35-7.45 N [facility] NorthwestPzlonnuUVNGFCBKM3813-12-38 19:08:00 Test Item Value Reference Range Interpretation Comments POC A Glu (test code = POC A Glu) 152 70-99 H [facility] NorthwestKuikpesTTJVBXTTY7460-83-65 19:08:00 Test Item Value Reference Range Interpretation Comments POC A LA (test code = POC A LA) 0.7 0.5-2.2 N [facility] NorthwestUginttrXMEVKRWQU5714-29-50 19:08:00 Test Item Value Reference Range Interpretation Comments POC A HCO3 (test code = POC A HCO3) 24 22-26 N [facility] NorthwestIpxyttqVNBSIDWKB3159-23-89 19:08:00 Test Item Value Reference Range Interpretation Comments POC A BE (test code = -1 See_Comment N [Auto mated message] The POC A BE) system which ge nerated this result transmit juan reference range : <=2. The reference range was not used to interpr et this result as lashonda l/abnormal. [facility] NorthwestQhditofZAPGJZNDT6684-11-91 19:08:00 Test Item Value Reference Range Interpretation Comments POC A Hct (test code = POC A Hct) 35.0 36.0-48.0 L [facility] NorthwestJdhtzcfTISAANPIO8246-92-17 19:08:00 Test Item Value Reference Range Interpretation Comments POC A O2 Sat (test code = POC A O2 Sat) 96.0 95.0-100.0 N [facility] NorthwestSbniomiQUIFATECS3509-01-44 19:08:00 Test Item Value Reference Range Interpretation Comments POC A K (test code = POC A K) 3.4 3.5-5.1 L [facility] NorthwestVgsdkzsCOXOTSSVM3189-04-76 19:08:00 Test Item Value Reference Range Interpretation Comments POC A Na (test code = POC A Na) 138 135-145 N [facility] NorthwestCagxdcyFOYNWAUIX8085-62-01 19:08:00 Test Item Value Reference Range Interpretation Comments POC A PCO2 (test code = POC A PCO2) 40 35-45 N [facility] NorthwestQxmmhafQIYAUPCAA2521-55-18 19:08:00 Test Item Value Reference Range Interpretation Comments POC A Ca Ion (test code = POC A Ca Ion) 1.26 1.16-1.30 N [facility] NorthwestEmqcqclRCBJKXSSL8444-47-31 19:08:00 Test Item Value Reference Range Interpretation Comments POC A Source (test code = POC A Source) ART [facility] NorthwestOwmjvmvGHDVXGCLT7146-10-04 19:08:00 Test Item Value Reference Range Interpretation Comments POC A Temp (test code = POC A Temp) 37.0 [facility] NorthwestMuvsattPVGAUPCGQ8767-62-30 19:08:00 Test Item Value Reference Range Interpretation Comments POC A PO2 (test code = POC A PO2) 85 80-100 N [facility] NorthwestHyevvjiOWBTRJXYB1344-37-30 19:08:00 Test Item Value Reference Range Interpretation Comments POC A pH (test code = POC A pH) 7.39 7.35-7.45 N [facility] NorthwestEdyvfkxUXDACQGAW4589-93-74 19:08:00 Test Item Value Reference Range Interpretation Comments POC A Glu (test code = POC A Glu) 152 70-99 H [facility] NorthwestNouseeoNIQOGCWPF1772-75-08 19:08:00 Test Item Value Reference Range Interpretation Comments POC A LA (test code = POC A LA) 0.7 0.5-2.2 N [facility] NorthwestQxuspieSRRXMKGXT4016-71-34 19:08:00 Test Item Value Reference Range Interpretation Comments POC A HCO3 (test code = POC A HCO3) 24 22-26 N [facility] NorthwestPcpehxsODVYGUPMH1753-99-16 19:08:00 Test Item Value Reference Range Interpretation Comments POC A BE (test code = -1 See_Comment N [Auto mated message] The POC A BE) system which ge nerated this result transmit juan reference range : <=2. The reference range was not used to interpr et this result as lashonda l/abnormal. [facility] NorthwestCvvbnfzQBHWFFFAK5885-45-55 19:08:00 Test Item Value Reference Range Interpretation Comments POC A Hct (test code = POC A Hct) 35.0 36.0-48.0 L [facility] NorthwestOfixtdcTDPZMPXRI5223-26-28 19:08:00 Test Item Value Reference Range Interpretation Comments POC A O2 Sat (test code = POC A O2 Sat) 96.0 95.0-100.0 N [facility] NorthwestUqohzvkTSMDQLZFY8881-58-82 19:08:00 Test Item Value Reference Range Interpretation Comments POC A K (test code = POC A K) 3.4 3.5-5.1 L [facility] NorthwestSenghuhAAKPBXWZO8325-77-62 19:08:00 Test Item Value Reference Range Interpretation Comments POC A Na (test code = POC A Na) 138 135-145 N [facility] NorthwestCbqehzvPXIDGRUBF6082-35-06 19:08:00 Test Item Value Reference Range Interpretation Comments POC A PCO2 (test code = POC A PCO2) 40 35-45 N [facility] NorthwestYtaolztFZCVHPZTL3630-50-84 19:08:00 Test Item Value Reference Range Interpretation Comments POC A Ca Ion (test code = POC A Ca Ion) 1.26 1.16-1.30 N [facility] NorthwestWjgsnbrVKOHLBJSL0198-39-84 19:08:00 Test Item Value Reference Range Interpretation Comments POC A Source (test code = POC A Source) ART [facility] NorthwestErvhssjHNMRTDSRC6373-70-55 19:08:00 Test Item Value Reference Range Interpretation Comments POC A Temp (test code = POC A Temp) 37.0 [facility] NorthwestTqkqmamSGTTDDOXW9138-34-33 19:08:00 Test Item Value Reference Range Interpretation Comments POC A PO2 (test code = POC A PO2) 85 80-100 N [facility] NorthwestAfjxvulAUCZESOWM3726-36-76 19:08:00 Test Item Value Reference Range Interpretation Comments POC A pH (test code = POC A pH) 7.39 7.35-7.45 N [facility] NorthwestWytxlqrQTSXBVJYT2996-73-41 17:27:00 Test Item Value Reference Range Interpretation Comments POC A PCO2 (test code = POC A PCO2) 44 35-45 N [facility] NorthwestAgwkagkCSKSRWHFP6956-99-12 17:27:00 Test Item Value Reference Range Interpretation Comments POC A BE (test code = 1 See_Comment N [Auto mated message] The POC A BE) system which ge nerated this result transmit juan reference range : <=2. The reference range was not used to interpr et this result as lashonda l/abnormal. [facility] NorthwestFusonhnFBSJAJCQE4755-88-36 17:27:00 Test Item Value Reference Range Interpretation Comments POC A HCO3 (test code = POC A HCO3) 26 22-26 N [facility] NorthwestHsysjkqKAFGBAZBJ1433-46-76 17:27:00 Test Item Value Reference Range Interpretation Comments POC A PO2 (test code = POC A PO2) 161 80-100 H [facility] NorthwestPcognukOBDFNVRUZ8784-69-64 17:27:00 Test Item Value Reference Range Interpretation Comments POC A Na (test code = POC A Na) 137 135-145 N [facility] NorthwestQyokkouWSHDNWDRI3642-89-22 17:27:00 Test Item Value Reference Range Interpretation Comments POC A Ca Ion (test code = POC A Ca Ion) 1.29 1.16-1.30 N [facility] NorthwestOrcwlbtFJPJKWCRI9308-41-06 17:27:00 Test Item Value Reference Range Interpretation Comments POC A O2 Sat (test code = POC A O2 Sat) 99.0 95.0-100.0 N [facility] NorthwestNzckjegRAAWFHMZK4948-97-09 17:27:00 Test Item Value Reference Range Interpretation Comments POC A K (test code = POC A K) 3.9 3.5-5.1 N [facility] NorthwestNmbowzeFSVUXGAUQ2395-37-51 17:27:00 Test Item Value Reference Range Interpretation Comments POC A Hct (test code = POC A Hct) 38.0 36.0-48.0 N [facility] NorthwestKidiqlpVCZDTQNTQ0096-98-20 17:27:00 Test Item Value Reference Range Interpretation Comments POC A Source (test code = POC A Source) ART [facility] NorthwestDzuiaudWFFFXRGGC0517-78-68 17:27:00 Test Item Value Reference Range Interpretation Comments POC A pH (test code = POC A pH) 7.38 7.35-7.45 N [facility] [facility] NorthwestVcvopaqPOAKNINZR5050-21-44 17:27:00 Test Item Value Reference Range Interpretation Comments POC A Temp (test code = POC A Temp) 37.0 [facility] NorthwestSknujkgWBFQZDCXR1922-03-91 17:27:00 Test Item Value Reference Range Interpretation Comments POC A Glu (test code = POC A Glu) 150 70-99 H [facility] NorthwestHjhixzsXKKHVGSGU8250-74-21 17:27:00 Test Item Value Reference Range Interpretation Comments POC A LA (test code = POC A LA) 1.1 0.5-2.2 N [facility] NorthwestLfyracmBOGTWEYTI8966-95-47 17:27:00 Test Item Value Reference Range Interpretation Comments POC A PCO2 (test code = POC A PCO2) 44 35-45 N [facility] NorthwestXdftqdeLQLHILYOP0648-51-86 17:27:00 Test Item Value Reference Range Interpretation Comments POC A BE (test code = 1 See_Comment N [Auto mated message] The POC A BE) system which ge nerated this result transmit juan reference range : <=2. The reference range was not used to interpr et this result as lashonda l/abnormal. [facility] NorthwestPviueccWCYWCMBZH2352-10-61 17:27:00 Test Item Value Reference Range Interpretation Comments POC A HCO3 (test code = POC A HCO3) 26 22-26 N [facility] NorthwestWsqiyslVASHEDMOW0933-99-58 17:27:00 Test Item Value Reference Range Interpretation Comments POC A PO2 (test code = POC A PO2) 161 80-100 H [facility] NorthwestBprbqvmRHCHKKSZU4420-29-97 17:27:00 Test Item Value Reference Range Interpretation Comments POC A Na (test code = POC A Na) 137 135-145 N [facility] NorthwestNebkiswQOYNCHDXF1939-58-87 17:27:00 Test Item Value Reference Range Interpretation Comments POC A Ca Ion (test code = POC A Ca Ion) 1.29 1.16-1.30 N [facility] NorthwestRlgjykjSRFOHCTVP3974-09-59 17:27:00 Test Item Value Reference Range Interpretation Comments POC A O2 Sat (test code = POC A O2 Sat) 99.0 95.0-100.0 N [facility] NorthwestNlcpyezVXVCXENBU5863-55-42 17:27:00 Test Item Value Reference Range Interpretation Comments POC A K (test code = POC A K) 3.9 3.5-5.1 N [facility] NorthwestSeptkeiKQVQDZCZF5421-82-73 17:27:00 Test Item Value Reference Range Interpretation Comments POC A Hct (test code = POC A Hct) 38.0 36.0-48.0 N [facility] NorthwestKtsxafnJIAUEWXQR7661-55-52 17:27:00 Test Item Value Reference Range Interpretation Comments POC A Source (test code = POC A Source) ART [facility] NorthwestYlberfgTZZBGWMGY0259-08-28 17:27:00 Test Item Value Reference Range Interpretation Comments POC A pH (test code = POC A pH) 7.38 7.35-7.45 N [facility] NorthwestEvhllwmDLDFXKXHL5109-77-06 17:27:00 Test Item Value Reference Range Interpretation Comments POC A Temp (test code = POC A Temp) 37.0 [facility] NorthwestYnnhrlbVCYRPUQBB8486-86-00 17:27:00 Test Item Value Reference Range Interpretation Comments POC A Glu (test code = POC A Glu) 150 70-99 H [facility] NorthwestPjieygsVUQFMLXBA8180-76-48 17:27:00 Test Item Value Reference Range Interpretation Comments POC A LA (test code = POC A LA) 1.1 0.5-2.2 N [facility] NorthwestIcsqkanFYIJZBBAC1023-92-37 17:27:00 Test Item Value Reference Range Interpretation Comments POC A PCO2 (test code = POC A PCO2) 44 35-45 N [facility] NorthwestEborqakKZVKTXBSY0113-82-27 17:27:00 Test Item Value Reference Range Interpretation Comments POC A BE (test code = 1 See_Comment N [Auto mated message] The POC A BE) system which ge nerated this result transmit juan reference range : <=2. The reference range was not used to interpr et this result as lashonda l/abnormal. [facility] NorthwestLsxpzqcFOLRZKQWJ3374-68-37 17:27:00 Test Item Value Reference Range Interpretation Comments POC A HCO3 (test code = POC A HCO3) 26 22-26 N [facility] NorthwestUrnvdqqKHDAZJUVG1421-34-93 17:27:00 Test Item Value Reference Range Interpretation Comments POC A PO2 (test code = POC A PO2) 161 80-100 H [facility] NorthwestNadvfjgSGZJUEHRM9551-01-80 17:27:00 Test Item Value Reference Range Interpretation Comments POC A Na (test code = POC A Na) 137 135-145 N [facility] NorthwestOlrpnheLHGOVUGHU3508-13-09 17:27:00 Test Item Value Reference Range Interpretation Comments POC A Ca Ion (test code = POC A Ca Ion) 1.29 1.16-1.30 N [facility] NorthwestNnjyxhjNUCEEXXPE2982-48-21 17:27:00 Test Item Value Reference Range Interpretation Comments POC A O2 Sat (test code = POC A O2 Sat) 99.0 95.0-100.0 N [facility] NorthwestBgnlazeFNXPVAHXS2528-24-92 17:27:00 Test Item Value Reference Range Interpretation Comments POC A K (test code = POC A K) 3.9 3.5-5.1 N [facility] NorthwestPfjwgbbBLPUUDABF8472-63-08 17:27:00 Test Item Value Reference Range Interpretation Comments POC A Hct (test code = POC A Hct) 38.0 36.0-48.0 N [facility] NorthwestTvfnkcfKDLAGPIHX5173-31-17 17:27:00 Test Item Value Reference Range Interpretation Comments POC A Source (test code = POC A Source) ART [facility] NorthwestDytwwqjGEKBSFNMO8139-51-31 17:27:00 Test Item Value Reference Range Interpretation Comments POC A pH (test code = POC A pH) 7.38 7.35-7.45 N [facility] NorthwestErqyzlaETNBKARFR6285-80-11 17:27:00 Test Item Value Reference Range Interpretation Comments POC A Temp (test code = POC A Temp) 37.0 [facility] NorthwestLvtwsnwFSHZFRRPN5543-42-99 17:27:00 Test Item Value Reference Range Interpretation Comments POC A Glu (test code = POC A Glu) 150 70-99 H [facility] NorthwestByaxxvpJENSALBAE8005-34-03 17:27:00 Test Item Value Reference Range Interpretation Comments POC A LA (test code = POC A LA) 1.1 0.5-2.2 N [facility] NorthwestXuksltqBSTFNXRZY2268-89-74 17:27:00 Test Item Value Reference Range Interpretation Comments POC A PCO2 (test code = POC A PCO2) 44 35-45 N [facility] NorthwestMxyeksmFOSVFISVT7855-49-42 17:27:00 Test Item Value Reference Range Interpretation Comments POC A BE (test code = 1 See_Comment N [Auto mated message] The POC A BE) system which ge nerated this result transmit juan reference range : <=2. The reference range was not used to interpr et this result as lashonda l/abnormal. [facility] NorthwestZitecfhMJJXGCUPF3462-91-64 17:27:00 Test Item Value Reference Range Interpretation Comments POC A HCO3 (test code = POC A HCO3) 26 22-26 N [facility] NorthwestAmhrsgrITYSKKAKX8076-97-18 17:27:00 Test Item Value Reference Range Interpretation Comments POC A PO2 (test code = POC A PO2) 161 80-100 H [facility] NorthwestOeayscqOIIOQYLPV1410-13-69 17:27:00 Test Item Value Reference Range Interpretation Comments POC A Na (test code = POC A Na) 137 135-145 N [facility] NorthwestNxqaozfWGURCVJNR2984-45-94 17:27:00 Test Item Value Reference Range Interpretation Comments POC A Ca Ion (test code = POC A Ca Ion) 1.29 1.16-1.30 N [facility] NorthwestYviqvkvAUFKRGQWA2602-68-08 17:27:00 Test Item Value Reference Range Interpretation Comments POC A O2 Sat (test code = POC A O2 Sat) 99.0 95.0-100.0 N [facility] NorthwestRridjqtRINRIGOED4163-08-64 17:27:00 Test Item Value Reference Range Interpretation Comments POC A K (test code = POC A K) 3.9 3.5-5.1 N [facility] NorthwestVdimhxzZOKIQLXJW1150-94-40 17:27:00 Test Item Value Reference Range Interpretation Comments POC A Hct (test code = POC A Hct) 38.0 36.0-48.0 N [facility] NorthwestVylwgqoGHUGAHAQX9258-57-47 17:27:00 Test Item Value Reference Range Interpretation Comments POC A Source (test code = POC A Source) ART [facility] NorthwestXawyytxFGEDXPYDN9106-13-71 17:27:00 Test Item Value Reference Range Interpretation Comments POC A pH (test code = POC A pH) 7.38 7.35-7.45 N [facility] NorthwestOwnithiABMPSLGCZ2350-92-23 17:27:00 Test Item Value Reference Range Interpretation Comments POC A Temp (test code = POC A Temp) 37.0 [facility] NorthwestAdvzzmlRAHGZOAIR6553-76-54 17:27:00 Test Item Value Reference Range Interpretation Comments POC A Glu (test code = POC A Glu) 150 70-99 H [facility] NorthwestHuybtpjTFWZPEZFO6814-93-69 17:27:00 Test Item Value Reference Range Interpretation Comments POC A LA (test code = POC A LA) 1.1 0.5-2.2 N [facility] NorthwestCwnfyzkUUADKJPSM1314-02-43 17:27:00 Test Item Value Reference Range Interpretation Comments POC A PCO2 (test code = POC A PCO2) 44 35-45 N [facility] NorthwestZslnfdtHPCWFYZFL5353-85-76 17:27:00 Test Item Value Reference Range Interpretation Comments POC A BE (test code = 1 See_Comment N [Auto mated message] The POC A BE) system which ge nerated this result transmit juan reference range : <=2. The reference range was not used to interpr et this result as lashonda l/abnormal. [facility] NorthwestSghpieqZZZJCHHIP6392-67-34 17:27:00 Test Item Value Reference Range Interpretation Comments POC A HCO3 (test code = POC A HCO3) 26 22-26 N [facility] NorthwestJswzfkuVTDRYXHED7087-31-31 17:27:00 Test Item Value Reference Range Interpretation Comments POC A PO2 (test code = POC A PO2) 161 80-100 H [facility] NorthwestOwtdgwuEGXBJKNBG1080-54-79 17:27:00 Test Item Value Reference Range Interpretation Comments POC A Na (test code = POC A Na) 137 135-145 N [facility] NorthwestVymfqobVOLVNEWLK5548-24-34 17:27:00 Test Item Value Reference Range Interpretation Comments POC A Ca Ion (test code = POC A Ca Ion) 1.29 1.16-1.30 N [facility] NorthwestGkphtggSPEMBOTWV2498-90-39 17:27:00 Test Item Value Reference Range Interpretation Comments POC A O2 Sat (test code = POC A O2 Sat) 99.0 95.0-100.0 N [facility] NorthwestIrbuiwtBMIDKJGFL7885-21-17 17:27:00 Test Item Value Reference Range Interpretation Comments POC A K (test code = POC A K) 3.9 3.5-5.1 N [facility] NorthwestMfwmxlrLIXROVANK0009-18-04 17:27:00 Test Item Value Reference Range Interpretation Comments POC A Hct (test code = POC A Hct) 38.0 36.0-48.0 N [facility] NorthwestMroxkihZOHSFDGAE7617-39-94 17:27:00 Test Item Value Reference Range Interpretation Comments POC A Source (test code = POC A Source) ART [facility] NorthwestVulqfeuGSLMHQVDH9868-63-69 17:27:00 Test Item Value Reference Range Interpretation Comments POC A pH (test code = POC A pH) 7.38 7.35-7.45 N [facility] NorthwestCqaqqozMYGFBRJJO7453-13-58 17:27:00 Test Item Value Reference Range Interpretation Comments POC A Temp (test code = POC A Temp) 37.0 [facility] NorthwestIndfsasDYZAKMBBT2461-44-01 17:27:00 Test Item Value Reference Range Interpretation Comments POC A Glu (test code = POC A Glu) 150 70-99 H [facility] NorthwestPhlqsqxYCTHBLHBA7033-96-93 17:27:00 Test Item Value Reference Range Interpretation Comments POC A LA (test code = POC A LA) 1.1 0.5-2.2 N [facility] NorthwestJgmbjctEGOFUBCXJ8865-52-75 17:27:00 Test Item Value Reference Range Interpretation Comments POC A PCO2 (test code = POC A PCO2) 44 35-45 N [facility] NorthwestHabamdvQJKAPPEOC0221-06-43 17:27:00 Test Item Value Reference Range Interpretation Comments POC A BE (test code = 1 See_Comment N [Auto mated message] The POC A BE) system which ge nerated this result transmit juan reference range : <=2. The reference range was not used to interpr et this result as lashonda l/abnormal. [facility] NorthwestIzfamzrQKBXIEHNP9352-79-28 17:27:00 Test Item Value Reference Range Interpretation Comments POC A HCO3 (test code = POC A HCO3) 26 22-26 N [facility] NorthwestKpvmpysNKFEUFDPB2796-10-97 17:27:00 Test Item Value Reference Range Interpretation Comments POC A PO2 (test code = POC A PO2) 161 80-100 H [facility] NorthwestGxrgszxEJZUAMVSJ7695-66-21 17:27:00 Test Item Value Reference Range Interpretation Comments POC A Na (test code = POC A Na) 137 135-145 N [facility] NorthwestEbbxucjTHPCDWDLJ1649-19-56 17:27:00 Test Item Value Reference Range Interpretation Comments POC A Ca Ion (test code = POC A Ca Ion) 1.29 1.16-1.30 N [facility] NorthwestDzlqrnfRYWDGWBWK9219-11-90 17:27:00 Test Item Value Reference Range Interpretation Comments POC A O2 Sat (test code = POC A O2 Sat) 99.0 95.0-100.0 N [facility] NorthwestWvydnehAYUEFPSSI5352-59-49 17:27:00 Test Item Value Reference Range Interpretation Comments POC A K (test code = POC A K) 3.9 3.5-5.1 N [facility] NorthwestBcwmipnCQOXMPNWU7287-47-46 17:27:00 Test Item Value Reference Range Interpretation Comments POC A Hct (test code = POC A Hct) 38.0 36.0-48.0 N [facility] NorthwestOxggsteIIWCGECCT1134-69-40 17:27:00 Test Item Value Reference Range Interpretation Comments POC A Source (test code = POC A Source) ART [facility] NorthwestBsydaljNXZNVCRYG7033-05-89 17:27:00 Test Item Value Reference Range Interpretation Comments POC A pH (test code = POC A pH) 7.38 7.35-7.45 N [facility] NorthwestSpixeedCCKGJBCZB2265-89-34 17:27:00 Test Item Value Reference Range Interpretation Comments POC A Temp (test code = POC A Temp) 37.0 [facility] NorthwestDhbcllkZULYWZUBG3092-40-59 17:27:00 Test Item Value Reference Range Interpretation Comments POC A Glu (test code = POC A Glu) 150 70-99 H [facility] NorthwestMzoiovzMGSBNSDMN6482-16-15 17:27:00 Test Item Value Reference Range Interpretation Comments POC A LA (test code = POC A LA) 1.1 0.5-2.2 N [facility] NorthwestQujtncrMJCWZVSNV4509-91-29 17:27:00 Test Item Value Reference Range Interpretation Comments POC A PCO2 (test code = POC A PCO2) 44 35-45 N [facility] NorthwestGrwemugXBHJBTKGD6053-07-71 17:27:00 Test Item Value Reference Range Interpretation Comments POC A BE (test code = 1 See_Comment N [Auto mated message] The POC A BE) system which ge nerated this result transmit juan reference range : <=2. The reference range was not used to interpr et this result as lashonda l/abnormal. [facility] NorthwestGukrcaiPPYEXBBKB4771-56-90 17:27:00 Test Item Value Reference Range Interpretation Comments POC A HCO3 (test code = POC A HCO3) 26 22-26 N [facility] NorthwestZjpyxfeWGQXNMRXG4631-81-16 17:27:00 Test Item Value Reference Range Interpretation Comments POC A PO2 (test code = POC A PO2) 161 80-100 H [facility] NorthwestMxgionfMKGXYDMYK3209-84-49 17:27:00 Test Item Value Reference Range Interpretation Comments POC A Na (test code = POC A Na) 137 135-145 N [facility] NorthwestBbgtpstKXDYZPBEV8442-01-16 17:27:00 Test Item Value Reference Range Interpretation Comments POC A Ca Ion (test code = POC A Ca Ion) 1.29 1.16-1.30 N [facility]WpoefuxXMOPJTPUS6830-23-87 17:27:00 Test Item Value Reference Range Interpretation Comments POC A O2 Sat (test code = POC A O2 Sat) 99.0 95.0-100.0 N [facility]oevrbzGQWHQAMDL8278-44-95 17:27:00 Test Item Value Reference Range Interpretation Comments POC A K (test code = POC A K) 3.9 3.5-5.1 N [facility] HospitalWnfoacyAWUAOTEDL5540-55-58 17:27:00 Test Item Value Reference Range Interpretation Comments POC A Hct (test code = POC A Hct) 38.0 36.0-48.0 N [facility] HospitalEydbwwwTXJNTGFPY8876-88-08 17:27:00 Test Item Value Reference Range Interpretation Comments POC A Source (test code = POC A Source) [facility] HospitalDnemcnhXSQQDJDWZ6496-97-93 17:27:00 Test Item Value Reference Range Interpretation Comments POC A pH (test code = POC A pH) 7.38 7.35-7.45 N [facility] CenterLprpbmgTGTOLVNLZ6218-09-68 17:27:00 Test Item Value Reference Range Interpretation Comments POC A Temp (test code = POC A Temp) 37.0 [facility] CenterWlfxnvuYCQLTOLLM3842-68-73 17:27:00 Test Item Value Reference Range Interpretation Comments POC A Glu (test code = POC A Glu) 150 70-99 H [facility] CenterQeoqnjfVKLZCLBLK4514-08-47 17:27:00 Test Item Value Reference Range Interpretation Comments POC A LA (test code = POC A LA) 1.1 0.5-2.2 N [facility] [employer] BETWASF1244-50-37 14:25:00 Test Item Value Reference Range Interpretation Comments ABO/Rh (test code = ABO/Rh) A NEG [facility] [employer] EOXYVBB4311-09-74 14:25:00 Test Item Value Reference Range Interpretation Comments Antibody Scrn (test Negative (10/03/2012 N code = Antibody Scrn) 09:25:00) [facility] [employer] [id number] 14:25:00 Test Item Value Reference Range Interpretation Comments ABO/Rh (test code = ABO/Rh) A NEG [facility] [employer] [id number] 14:25:00 Test Item Value Reference Range Interpretation Comments Antibody Scrn (test Negative (10/03/2012 N code = Antibody Scrn) 09:25:00) [facility] [employer] FANORIF4933-00-24 14:25:00 Test Item Value Reference Range Interpretation Comments ABO/Rh (test code = ABO/Rh) A NEG [facility] [employer] LJEQVTN1410-30-92 14:25:00 Test Item Value Reference Range Interpretation Comments Antibody Scrn (test Negative (10/03/2012 N code = Antibody Scrn) 09:25:00) [facility] [employer] [id number] 14:25:00 Test Item Value Reference Range Interpretation Comments ABO/Rh (test code = ABO/Rh) A NEG [facility] [employer] [id number] 14:25:00 Test Item Value Reference Range Interpretation Comments Antibody Scrn (test Negative (10/03/2012 N code = Antibody Scrn) 09:25:00) [facility] [employer] [id number] 14:25:00 Test Item Value Reference Range Interpretation Comments ABO/Rh (test code = ABO/Rh) A NEG [facility] [employer] [id number] 14:25:00 Test Item Value Reference Range Interpretation Comments Antibody Scrn (test Negative (10/03/2012 N code = Antibody Scrn) 09:25:00) [facility] [employer] [id number] 14:25:00 Test Item Value Reference Range Interpretation Comments ABO/Rh (test code = ABO/Rh) A NEG [facility] [employer] [id number] 14:25:00 Test Item Value Reference Range Interpretation Comments Antibody Scrn (test Negative (10/03/2012 N code = Antibody Scrn) 09:25:00) [facility] [employer] [id number] 14:25:00 Test Item Value Reference Range Interpretation Comments ABO/Rh (test code = ABO/Rh) A [facility] [employer] [id number] 14:25:00 Test Item Value Reference Range Interpretation Comments Antibody Scrn (test Negative (10/03/2012 N code = Antibody Scrn) 09:25:00) [facility] Date[facility] Source 2016-01-13 17:17:59-00:00 EXAMINATION: Left knee [address] [facility] HISTORY: Left knee pain status post fall; [...] 2016-01-13 17:17:59-00:00 EXAMINATION: Left knee [address] [facility] HISTORY: Left knee pain status post fall; [...] 2016-01-13 17:17:59-00:00 EXAMINATION: Left knee [address] [facility] HISTORY: Left knee pain status post fall; [...] fracture 2016-01-13 17:17:52-00:00 LUMBAR SPINE 4 VIEWS [facility] Clinical History: 75-year-old female with low [...] disease. 2016-01-13 17:17:52-00:00 LUMBAR SPINE 4 VIEWS [facility] Clinical History: 75-year-old female with low [...] disease. 2016-01-13 17:17:52-00:00 LUMBAR SPINE 4 VIEWS [facility] Clinical History: 75-year-old female with low [...] of the left hip witho ut contrast [facility] HISTORY: Left hip pain status [...] of the left hip witho ut contrast [facility] HISTORY: Left hip pain status [...] of the left hip witho ut contrast [facility] HISTORY: Left hip pain status [...] EXAM: MRI LUMBAR SPINE WITHOUT CONTRAS T [facility] DATE: 01/11/2016 10:08 PM CDT . CLINICAL [...] EXAM: MRI LUMBAR SPINE WITHOUT CONTRAS T [facility] DATE: 01/11/2016 10:08 PM CDT . CLINICAL [...] EXAM: MRI LUMBAR SPINE WITHOUT CONTRAS T [facility] DATE: 01/11/2016 10:08 PM CDT . CLINICAL [...] 19:46:17-00:00 CLINICAL HISTORY: Abnormal chest sound s. [facility] : 1940. TECHNIQUE: PA and lateral views of the chest. Co mparison: 09/14/2012. Heart size: Normal. Tortuous aorta. Lungs: No acute consolidation. Shallow inspirati on. Pleura: No pleural effusion. Mediastinum and elizabeth: Unremarkable. Skeletal: Unremarkable. IMPRESSION: 1. No active disease in the chest. 2016-01-11 19:46:17-00:00 CLINICAL HISTORY: Abnormal chest sound s. [facility] : 1940. TECHNIQUE: PA and lateral views of the chest. Co mparison: 09/14/2012. Heart size: Normal. Tortuous aorta. Lungs: No acute consolidation. Shallow inspirati on. Pleura: No pleural effusion. Mediastinum and elizabeth: Unremarkable. Skeletal: Unremarkable. IMPRESSION: 1. No active disease in the chest. 2016-01-11 19:46:17-00:00 CLINICAL HISTORY: Abnormal chest sound s. [facility] : 1940. TECHNIQUE: PA and lateral views of the chest. Co mparison: 09/14/2012. Heart size: Normal. Tortuous aorta. Lungs: No acute consolidation. Shallow inspirati on. Pleura: No pleural effusion. Mediastinum and elizabeth: Unremarkable. Skeletal: Unremarkable. IMPRESSION: 1. No active disease in the chest. 2014-03-25 10:11:00-00:00 EXAM: 2 views of the Cervical Spine PHYLLIS Butler DATE: Mar 25, 2014 10:21:43 AM INDICATION:723.4 [...] ACDF with no interval detrimental change 2014-03-25 10:11:00-00:00 EXAM: [facility] DATE: Mar 25, 2014 10:21:43 AM INDICATION:723.4 [...] ACDF with no interval detrimental change 2014-03-25 10:11:00-00:00 EXAM: 2 views of the Cervical Spine [facility] DATE: Mar 25, 2014 10:21:43 AM INDICATION:723.4 [...] 11:58:24-00:00 EXAM: XR CERVICAL SPINE 2 VIEWS [facility] DATE: 2013-09-17 12:00:00 INDICATION: 723.4 Brachial Neuritis [...] 11:58:24-00:00 EXAM: XR CERVICAL SPINE 2 VIEWS [facility] DATE: 2013-09-17 12:00:00 INDICATION: 723.4 Brachial Neuritis [...] 11:58:24-00:00 EXAM: XR CERVICAL SPINE 2 VIEWS [facility] DATE: 2013-09-17 12:00:00 INDICATION: 723.4 Brachial Neuritis [...] 09:34:07-00:00 EXAM: XR CERVICAL SPINE 3 VIEWS [facility] DATE: March 19, 2013 at 0908 INDICATION: [...] 09:34:07-00:00 EXAM: XR CERVICAL SPINE 3 VIEWS [facility] DATE: March 19, 2013 at 0908 INDICATION: [...] 09:34:07-00:00 EXAM: XR CERVICAL SPINE 3 VIEWS [facility] DATE: March 19, 2013 at 0908 INDICATION: [...] EXAM: XR CERVICAL SPINE 2 VIEWS [facility] DATE: December 25, 2012, 0827 hours. INDICATION: [...] 08:45:00-00:00 EXAM: XR CERVICAL SPINE 2 VIEWS [facility] DATE: December 25, 2012, 0827 hours. INDICATION: [...] 08:45:00-00:00 EXAM: XR CERVICAL SPINE 2 VIEWS [facility] DATE: December 25, 2012, 0827 hours. INDICATION: [...] 2012-11-22 08:16:51-00:00 [facility]: November 22, 2012 0803 hours INDICATION: [...] 2012-11-22 08:16:51-00:00 [facility], 2012 0803 [facility] INDICATION: [...] 2012-11-22 08:16:51-00:00 [facility]: [facility], 2012 0803 hours INDICATION: [...]
--- NOTE | 2023-01-15 12:15 | RAD REPORT ---
EXAM DESCRIPTION: Rosey Single View01/15/2023 11:54 am CLINICAL HISTORY: Chest pain COMPARISON: August 2022 FINDINGS: The lungs appear clear of acute infiltrate. The heart is normal size IMPRESSION: No acute abnormalities displayed
[2023-01-15 12:43] LABS: Specific Gravity 1.007 (1.005-1.030); Urine Bacteria None Seen /HPF (<20); Urine Bilirubin NEGATIVE (Negative); Urine Blood Negative (Negative); Urine Clarity Clear (Clear); Urine Color Colorless (Yellow); Urine Glucose NEGATIVE (Negative); Urine Protein 1+ (Negative); Urine RBC <5 /HPF (None Seen); Urine Urobilinogen Normal (Normal)
--- NOTE | 2023-01-15 13:02 | RAD REPORT ---
EXAM DESCRIPTION: US - Abdomen Exam Limited - 01/15/2023 12:07 pm CLINICAL HISTORY: Abdominal pain. COMPARISON: None. FINDINGS: The gallbladder is distended. Gallbladder wall is not thickened. A gallstone is not seen. 3 millimeter gallbladder polyp Common bile duct 7.5 millimeters IMPRESSION: Gallbladder distention. 3 millimeter gallbladder polyp. Borderline dilatation of the common bile duct given the patient's age. CT scan may be helpful for fur ther evaluation
[2023-01-15] MEDS ORDERED: cloNIDine HCL 0.1 MG TAB ONE (13:03)
--- NOTE | 2023-01-15 14:06 | RAD REPORT ---
EXAM DESCRIPTION: CTAbdomen Pelvis W Contrast - 01/15/2023 1:38 pm CLINICAL HISTORY: ABD PAIN COMPARISON: Head C Spine Cap Wo Con dated 09/04/2016 TECHNIQUE: CT of the abdomen and pelvis was performed. All CT scans are performed using dose optimization technique as appropriate and may include automated exposure control or mA/KV adjustment according to patient size. FINDINGS: Lower chest: Coronary artery calcifications. Liver: Hepatic steatosis. Too small to characterize liver lesions which are likely benign. Biliary: No biliary ductal dilatation. Stomach: No significant focal abnormality. Duodenum: No significant focal abnormality. Pancreas: No significant abnormality. Spleen: No significant abnormality. Adrenal: No suspicious lesions. 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 No renal calculi. Too small to characterize an d/or benign appearing renal lesions are noted. Retroperitoneum: No retroperitoneal adenopathy. Vascular: No aneurysm. Atherosclerosis . Bowel: No significant focal abnormality. Normal appendix. Peritoneum: No ascites or free air. Bladder: Grossly unremarkable. Reproductive: 2.4 cm right adnexal cyst which was also present on the 2017 exam and measured similar. This does not require follow-up given the long-term stability. . Bones: No acute fracture. Multilevel degenerative changes are present in the spine. Other: n/a IMPRESSION: No acute intra-abdominal or pelvic finding. Incidental findings as noted above.
[2023-01-15] MEDS ORDERED: HYDRALAZINE HCL 25 MG TABLET ONE (14:54)
--- NOTE | 2023-01-15 16:24 | EDPHYS ---
Physician Documentation [facility] – [place], [place] Name: Kate Love Age: 82 yrs Sex: Female : 1940 Arrival Date: 01/15/2023 Time: 11:00 Bed 15 Private MD: ED Physician Miguelito Schuler HPI: 01/15 11:07 This 82 yrs old Female presents to ER via Unassigned with complaints of Diarrhea. kb 11:07 The patient presents to the emergency department with diarrhea. Onset: The kb symptoms/episode began/occurred 4 day(s) ago. Possible causes: unknown. The symptoms are aggravated by nothing. The symptoms are alleviated by nothing. Associated signs and symptoms: Pertinent positives: diarrhea. Severity of symptoms: At their worst the symptoms were moderate in the emergency department the symptoms are unchanged. The patient has experienced a previous episode, last month. The patient has not recently seen a physician. Patient is an 82-year-old female who presents for diarrhea and burning upper abdominal pain that radiates up chest that started on Sunday, 4 days ago. Patient denies fever, nausea, vomiting. Reports decreased appetite.. Historical: - Allergies: 11:44 No Known Allergies; ko1 - Immunization history:: Adult Immunizations unknown. - Social history:: Smoking status: Patient denies any tobacco usage or history of. ROS: 11:09 Constitutional: Negative for fever, chills, and weight loss. kb 11:09 Constitutional: Positive for poor PO intake. 11:09 Abdomen/GI: Positive for abdominal pain, diarrhea, Negative for nausea and vomiting. 11:09 All other systems are negative. Exam: 11:09 Constitutional: This is a well developed, well nourished patient who is awake, alert, kb and in no acute distress. Head/Face: Normocephalic, atraumatic. ENT: Moist Mucous membranes Cardiovascular: Regular rate and rhythm with a normal S1 and S2. No gallops, murmurs, or rubs. No pulse deficits. Respiratory: Respirations even and unlabored. No increased work of breathing. Talking in full sentences Skin: Warm, dry with normal turgor. Normal color. MS/ Extremity: Pulses equal, no cyanosis. Neurovascular intact. Full, normal range of motion. Neuro: Awake and alert, GCS 15, oriented to person, place, time, and situation. Moves all extremities. Normal gait. 11:09 Abdomen/GI: Inspection: abdomen appears normal, Bowel sounds: active, Palpation: soft, in all quadrants, moderate abdominal tenderness, in the right upper quadrant. 11:52 ECG was reviewed by the Attending Physician. Vital Signs: 11:05 BP 173 / 62; Pulse 50; Resp 18; Temp 98; Pulse Ox 97% on R/A; ko1 12:03 BP 192 / 76; Pulse 54; Resp 18; Pulse Ox 98% on R/A; ko1 12:52 BP 211 / 74; Pulse 54; Resp 18; Pulse Ox 98% ; ko1 14:31 BP 186 / 60; Pulse 54; Resp 18; Pulse Ox 96% ; ko1 16:12 BP 184 / 53; Pulse 59; Resp 16; Pulse Ox 98% ; ko1 16:24 BP 180 / 64; Pulse 50; Resp 18; Pulse Ox 96% ; ko1 MDM: 11:04 Patient medically screened. 11:09 Differential diagnosis: Nonspecific abd pain, gastritis, cholecystitis, pancreatitis, kb viral gastroenteritis. Data reviewed: vital signs, nurses notes. Historians other than the Patient: EMS: [facility]. 15:50 Consideration of Admission/Observation Escalation of care including kb admission/observation considered. Management of patient was discussed with the following: Primary Care Provider: Dr Paz contacted at [phone], awaiting callback. 16:23 Counseling: I had a detailed discussion with the patient and/or guardian regarding: the kb historical points, exam findings, and any diagnostic results supporting the discharge/admit diagnosis, lab results, radiology results, the need for outpatient follow up, a family practitioner, to return to the emergency department if symptoms worsen or persist or if there are any questions or concerns that arise at home. 01/15 11:05 Order name: CBC with Diff; Complete Time: 11:24 kb 01/15 11:05 Order name: CMP; Complete Time: 11:46 kb 01/15 11:05 Order name: Lipase; Complete Time: 11:46 kb 01/15 11:05 Order name: Urinalysis w/ reflexes; Complete Time: 12:56 kb 01/15 11:05 Order name: Troponin HS; Complete Time: 11:46 kb 01/15 15:15 Order name: Troponin High Sensitivity; Complete Time: 15:57 kb 01/15 11:05 Order name: Abdomen Limited US; Complete Time: 13:09 kb 01/15 11:05 Order name: Chest Single View XRAY; Complete Time: 12:23 kb 01/15 13:09 Order name: CT Abd/Pelvis - IV Contrast Only; Complete Time: 14:08 kb 01/15 11:05 Order name: EKG; Complete Time: 11:06 kb 01/15 11:05 Order name: IV Saline Lock; Complete Time: 11:18 kb 01/15 11:05 Order name: Labs collected and sent; Complete Time: 11:18 kb 01/15 11:05 Order name: EKG - Nurse/Tech; Complete Time: 11:33 kb 01/15 14:11 Order name: Vital Signs; Complete Time: 14:43 kb 01/15 14:20 Order name: PO challenge; Complete Time: 14:46 kb EC:52 Rate is 52 beats/min. Rhythm is regular. QRS [place] is Normal. MT interval is prolonged kb at 202 msec. QRS interval is normal at 92 msec. QT interval is normal at 394 msec. Administered Medications: 11:33 Drug: NS 0.9% IV 1000 ml Route: IV; Rate: 1 bolus; Site: right forearm; ko1 11:33 Drug: Famotidine IVP 20 mg Route: IVP; Site: right forearm; ko1 12:58 Drug: cloNIDine PO 0.1 mg Route: PO; ko1 14:45 Drug: HydrALAZINE PO 25 mg Route: PO; ko1 Disposition: 17:51 Co-signature as Attending Physician, Miguelito Schuler MD I reviewed the patient's care rt provided by the Advanced Practice Provider and agree with the diagnosis and treatment plan. Disposition Summary: 01/15/23 16:23 Discharge Ordered Location: Home kb Condition: Stable kb Diagnosis - Diarrhea, unspecified kb - Gastro-esophageal reflux disease without esophagitis kb Followup: kb - With: Emergency Department - When: As needed - Reason: Worsening of condition Followup: kb - With: Private Physician - When: 2 - 3 days - Reason: Recheck today's complaints, Continuance of care, Re-evaluation by your physician Discharge Instructions: - Discharge Summary Sheet kb - Food Choices to Help Relieve Diarrhea, Adult kb - Gastroesophageal Reflux Disease, Adult, [id number] kb - Diarrhea, Adult, [id number] kb Forms: - Medication Reconciliation Form kb - Thank You Letter kb - Antibiotic Education kb - Prescription Opioid Use kb - Patient Portal Instructions kb Signatures: Dispatcher [employer] Yanique Sanders FNP-C FNP-Ckb Oliver, Kathy, RN RN ko1 Miguelito Schuler MD MD rt
--- NOTE | 2023-01-15 16:24 | ER ---
Nurse's Notes [facility] Name: Kate Love Age: 82 yrs Sex: Female : 1940 Arrival Date: 01/15/2023 Time: 11:00 Bed 15 Private MD: Diagnosis: Diarrhea, unspecified;Gastro-esophageal reflux disease without esophagitis Presentation: 01/15 11:05 Chief complaint: EMS states: patient has had diarrhea for 2-3 days, she is complaining ko1 of dehydration. She usually takes lasix but hasn't taken it today. Coronavirus screen: At this time, the client does not indicate any symptoms associated with coronavirus-19. Ebola Screen: No symptoms or risks identified at this time. Initial Sepsis Screen: Does the patient meet any 2 criteria? No. Patient's initial sepsis screen is negative. Does the patient have a suspected source of infection? No. Patient's initial sepsis screen is negative. Risk Assessment: Do you want to hurt yourself or someone else? Patient reports no desire to harm self or others. Onset of symptoms was January 15, 2023. 11:05 Method Of Arrival: EMS: [facility] ko1 11:05 Acuity: AURELIA 3 ko1 Triage Assessment: 11:44 General: Appears in no apparent distress. uncomfortable, Behavior is calm, cooperative, ko1 appropriate for age. Pain: Denies pain. Historical: - Allergies: 11:44 No Known Allergies; ko1 - Immunization history:: Adult Immunizations unknown. - Social history:: Smoking status: Patient denies any tobacco usage or history of. Screenin:15 [facility] ED Fall Risk Assessment (Adult) History of falling in the last 3 months, ko1 including since admission No falls in past 3 months (0 pts) Confusion or Disorientation No (0 pts) Intoxicated or Sedated No (0 pts) Impaired Gait Yes (1 pt) Mobility Assist Device Used Yes (1 pt) Altered Elimination No (0 pt) Score/Fall Risk Level 0 - 2 = Low Risk Oriented to surroundings, Maintained a safe environment, Educated pt \T\ family on fall prevention, incl call for assistance when getting out of bed, Assessed \T\ reinforced patient's understanding of fall precautions, Provided non-skid footwear, Hourly rounding (assess needs \T\ fall precautionary measures) done, Used ambulatory aids as needed (educated on \T\ assisted with), Used gait belt as appropriate. Abuse screen: Denies threats or abuse. Denies injuries from another. Nutritional screening: On. Nutritional screening: No deficits noted. Tuberculosis screening: No symptoms or risk factors identified. Assessment: 11:15 Neuro: No deficits noted. Cardiovascular: No deficits noted. Respiratory: No deficits ko1 noted. GI: Reports upper abdominal pain, diarrhea. : No deficits noted. EENT: No deficits noted. Derm: No deficits noted. Musculoskeletal: No deficits noted. Vital Signs: 11:05 BP 173 / 62; Pulse 50; Resp 18; Temp 98; Pulse Ox 97% on R/A; ko1 12:03 BP 192 / 76; Pulse 54; Resp 18; Pulse Ox 98% on R/A; ko1 12:52 BP 211 / 74; Pulse 54; Resp 18; Pulse Ox 98% ; ko1 14:31 BP 186 / 60; Pulse 54; Resp 18; Pulse Ox 96% ; ko1 16:12 BP 184 / 53; Pulse 59; Resp 16; Pulse Ox 98% ; ko1 16:24 BP 180 / 64; Pulse 50; Resp 18; Pulse Ox 96% ; ko1 ED Course: 11:03 Patient arrived in ED. ko1 11:04 Yanique Mcgill [facility]-C [facility] kb 11:04 Miguelito Schuler MD is Attending Physician. kb 11:05 Cyndy Dean, JENNIE is Primary Nurse. ko1 11:15 Inserted saline lock: 20 gauge in right forearm, using aseptic technique. ko1 11:15 Patient has correct armband on for positive identification. Bed in low position. Call ko1 light in reach. Side rails up X2. Provided Education on: NA. Client placed on continuous cardiac and pulse oximetry monitoring. NIBP monitoring applied. manager monitoring on. Door closed. Noise minimized. Warm blanket given. 11:18 Troponin HS Sent. ko1 11:18 CBC with Diff Sent. ko1 11:18 CMP Sent. ko1 11:18 Lipase Sent. ko1 11:44 Triage completed. ko1 11:44 Arm band placed on right wrist. Patient placed in an exam room, on a stretcher, on ko1 air sampling and monitoring, on pulse oximetry, Patient notified of wait time. 11:56 Chest Single View XRAY In Process Unspecified. EDMS 12:09 Abdomen Limited US In Process Unspecified. EDMS 12:33 Urinalysis w/ reflexes Sent. ko1 13:39 CT Abd/Pelvis - IV Contrast Only In Process Unspecified. EDMS 15:28 Troponin High Sensitivity Sent. ko1 16:24 No provider procedures requiring assistance completed. ko1 16:25 IV discontinued, intact, bleeding controlled, No redness/swelling at site. Pressure ko1 dressing applied. Administered Medications: 11:33 Drug: NS 0.9% IV 1000 ml Route: IV; Rate: 1 bolus; Site: right forearm; ko1 11:33 Drug: Famotidine IVP 20 mg Route: IVP; Site: right forearm; ko1 12:58 Drug: cloNIDine PO 0.1 mg Route: PO; ko1 14:45 Drug: HydrALAZINE PO 25 mg Route: PO; ko1 Medication: 16:24 VIS not applicable for this client. ko1 Outcome: 16:23 Discharge ordered by MD. suárez 16:25 Discharged to home via wheelchair, with family. ko1 16:25 Condition: improved 16:25 Discharge instructions given to patient, family, Instructed on discharge instructions, follow up and referral plans. Demonstrated understanding of instructions, follow-up care. 16:58 Patient left the ED. ko1 Signatures: Dispatcher [employer] Yanique Sanders, SARAHY JULIAN-Cyndy Keen, RN RN ko1
[2023-01-15 17:16] VITALS: TEMP 98
[2023-01-15 17:25] VITALS: BP 180/64; O2SAT 96
--- NOTE | 2023-01-17 17:43 | EKG ---
Test Date: 2023-01-15 Test Time: 11:37:44 Editor Continuity And Script: Mag HALE MEASUREMENT RESULTS: Intervals: Rate: 52 NM: 202 QRSD: 92 QT: 424 QTc: 394 [place]: P: 63 NM: 202 QRS: 25 T: 29 INTERPRETIVE STATEMENTS: Sinus bradycardia Otherwise normal ECG Compared to ECG 12/28/2022 13:57:32 Sinus rhythm no longer present Electronically Signed On 01-17-23 17:35:55 CDT by Brett Samson
== END 2023-01-15 16:58 | disposition home or self-care (01) ==
LOC: ER 11:00
DX: R19.7 Diarrhea, unspecified (principal); K21.9 Gastro-esophageal reflux disease without esophagitis
CPT/HCPCS: 93005; 85025; 81001; 36415; 84484 ×2; 83690; 80053; 74177; 71045; 76705; 96374; 99285; Q9967; J7030

== ENCOUNTER 2023-01-18 14:42 | Inpatient (IN) | payer OTHER ==
[2023-01-18 15:11] VITALS: BMI 29.7
--- OUTSIDE RECORDS SUMMARY | 2023-01-18 15:16 | XMS REPORT | Continuity of Care Document ---
:1940 Author Organization [facility] t Address [address] [place] [address] [place] [id number] Care Team Providers Name Role Phone Joao Paz Primary Care Physician MICHAEL ASHBY Attending Clinician Unavailable TYLER_Amina Attending Clinician Unavailable Alex Marie MD Attending Clinician Ej Attending Clinician Unavailable Provider , Not In System Attending Clinician Unavailable Rut Nicolas MA Attending Clinician Unavailable Provider , Not In System Attending Clinician Unavailable Wilian Attending Clinician Unavailable Doctor Unassigned, Berne Attending Clinician Unavailable Chucho Montenegro MD Attending Clinician CHUCHO MONTENEGRO Attending Clinician Unavailable Lora Quinones MD Attending Clinician Roger Holloway Attending Clinician [phone] Phillip Castaneda Attending Clinician Unavailable Joby Wheeler MD Attending Clinician Whitley Bryson RN Attending Clinician Unavailable MICHAEL ASHBY M.D. Attending Clinician Unavailable Riley Whyte Attending Clinician Jean Paul Angela Attending Clinician Ranjit Drew Attending Clinician Keron Thomas Attending Clinician Daniel Admitting Clinician Unavailable Ej Admitting Clinician Unavailable Wilian Admitting Clinician Unavailable KNOW, DOES_NOT Admitting Clinician Unavailable Riley Whyte Admitting Clinician Jean Paul Angela Admitting Clinician Ranjit Drew Admitting Clinician Payers Payer Name Policy Type Policy Number Effective Date Expiration Date S inés [facility] MEDICARE [id number] 2021 ADVANTAGE 00:00:00 [facility] [id number] 2023 00:00:00 [facility] [id number] (MEDICARE REPLACEMENT/ADVANTA GE - PPO) MEDICARE B-[place]: [id number] [employer] (MEDICARE [id number] REPLACEMENT/ADVANTA GE - PPO) Problems Condition Condition [...] pain Hip Pain Problem Active Azale a 9 Orthope 00:00: dic 00 Sports Medicin e [...] 00:00: di c 00 Sports Medicin e 64310, 37912, Diagnosis Active 2016-08-23 Me moria 93855 X3, 11596 X3, 8-16 21:24:00 l CONNECTIVE CONNECTIVE 00:00: He abyann TISSUE AND TISSUE AND 00 D D Active 02/01/2016 [facility] HERNIATED HERNIATED Diagnosis Active 2016-02-01 Memoria LUMBAR LUMBAR 7-26 22:00:00 l DISK S/P DISK S/P 00:00: Richard thompson FALL WITH FALL WITH 00 LT H LT H Active 01/11/2016 [facility] HERNIATED HERNIATED Diagnosis Active 2016-01-11 Memoria LUMBAR LUMBAR 7-25 05:29:00 l DISK S/P DISK S/P 00:00: Richard thompson FALL WITH FALL WITH 00 LEFT LEFT Active 01/10/2016 [facility] Knee pain Knee Pain Problem Active Falguni maritza 6-09 Orthope 00:00: dic 00 Sports Medicin e 723.4 - 723.4 - Diagnosis Active 2013-12-02 Memoria BRACHIAL BRACHIAL 4-02 07:22:00 l NEURIT NEURIT 00:01: Bear Active 00 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 [facility] CERVICAL CERVICAL Diagnosis Active 2012-10-07 Memoria RADICULITI RADICULITI - 13:29:00 l S, S, 00:00: Luke CERVICAL CERVICAL 00 DISC DISP DISC DISP Active 09/06/2012 [facility] Osteoarthr Osteoarthr Problem Active 2010-06 A zalea itis of itis of 0-25 Orthope knee Knee 00:00: dic 00 Sports Medicin e No known No known Disease [place] active active Health problems problems Diabetes Diabetes Problem Resolve 2013-03-21 Memoria mellitus mellitus d 20:07:44 l Resolved Luke Problem 03/21/2013 [facility] PHYLLIS Butler GERD - GERD - Problem Resolve 2013-03-21 Mem oria Gastro-eso Gastro-eso d 20:07:44 l phageal phageal Bear reflux reflux disease disease Resolved Problem 03/21/2013 [facility] PHYLLIS Butler HLD - HLD - Problem Resolve 2013-03-21 Boy tadeo Hyperlipid Hyperlipid d 20:07:44 l emia emia Bear Resolved Problem 03/21/2013 [facility] PHYLLIS Butler HTN - HTN - Problem Resolve 2013-03-21 Boy tadeo Hypertensi Hypertensi d 20:07:44 l on on Bear Resolved Problem 03/21/2013 [facility] PHYLLIS Butler Neuropathy Neuropath Problem Resolve 2013-03-21 Memoria y Resolved d 20:07:44 l Problem Luke 03/21/2013 [facility] PHYLLIS Butler Diabetes Diabetes Problem Active 2016-02-17 Memoria mellitus mellitus 00:32:37 l (disorder) (disorder) He rmann Active Problem 02/17/2016 PHYLLIS Butler,[facility] Displaceme Problem Active 2016-02-17 M kristine nt of Displaceme 00:32:37 l lumbar 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 (disorder) myelopathy (disorder) Active Problem 02/17/2016 [facility] Gastroesop Problem Active 2016-02-17 M emoria hageal Gastroesop 00:32:37 l reflux hageal Luke disease reflux (disorder) disease (disorder) Active Problem 02/17/2016 OPINick Butler,[facility] Lumbar Lumbar Problem Active 2016-02-17 Boy tadeo radiculopa radiculopa 00:32:37 l thy thy Bear (disorder) (disorder) Active Problem 02/17/2016 [facility] Lumbar Lumbar Problem Active 2016-02-17 Boy tadeo spondylosi spondylosi 00:32:37 l s s Luke (disorder) (disorder) Active Problem 02/17/2016 [facility] 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 00:32:37 l of lumbar of lumbar Herm robert region region (disorder) (disorder) Active Problem 02/17/2016 [facility] 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 00:32:37 l (disorder) (disorder) He abyann Active Problem 02/17/2016 [facility] Interverte Intervert Problem Active 2016-02-17 Memoria bral disc ebral disc 00:32:37 l disorder disorder Richard n (disorder) (disorder) Active Problem 02/17/2016 [facility] Interverte Problem Active 2016-02-17 M emoria bral disc Interverte 00:32:37 l stenosis bral disc Anitra nn of neural stenosis canal of neural (disorder) canal (disorder) Active Problem 02/17/2016 [facility] BRACHIAL BRACHIAL Diagnosis Active 2012-10-07 Memoria NEURITIS NEURITIS 13:29:00 l NOS NOS Active Richard thompson [facility] CERV DISC CERV DISC Diagnosis Active 2012-10-07 Memoria DIS W DIS W 13:29:00 l MYELOPAT MYELOPAT Richard thompson Active [facility] ILLNESS, ILLNESS, Diagnosis Active 2016-08-23 Memoria UNSPECIFIE UNSPECIFIE 21:24:00 l D D Active Luke [facility] Allergies, Adverse Reactions, Alerts Allergy Allergy Status Severity Reaction(s) Onset Inactive Treating Comm ents Source Name Type Date Date Clinician tashiaglurogelio DA Active [facility] diane 12-16 [place] 00:00: [facility] 00 dic Hospita l semaglut DA Active [facility] diane 7-01 [place] 00:00: Orthope 00 dic Hospita l No Known DA Active [facility] Allergie 1-15 [facility] 00:00: Orthope 00 dic Hospita l Dulaglut Allergy Active Arlin diane to Orthope substanc dic e Sports Medicin e NKFA NKFA Active Memoria l Bear NO KNOWN Drug Active Univers ALLERGIE Class ity of [facility] STATINS- Allergy Active Myalgias Burnett ge [facility] [...] Not sure University SARS-CoV-2 (event) 00:00:00 09:35:00 [facility] Tobacco use and 2021-11-28 2021-11-28 Smokeless tobacco [facility] exposure 00:00:00 00:00:00 non-user Cigarette 2021-11-28 2021-11-28 [facility] pack-years 00:00:00 00:00:00 Alcohol intake 2019-06-03 2019-06-03 Current drinker of Me [facility]odist 00:00:00 00:00:00 alcohol (finding) Hospita l Social History 2016-01-11 2016-01-11 [facility] 22:35:39 22:35:39 Sex Ass[birth year] At [birth year] [facility] 00:00[facility]00 00:00:00 [facility] Smoking Status Start Date Stop Date Source Never smoked tobacco [facility] Tobacco smoking consumption [facility] Medications Ordered Filled Start Stop Current Ordering Indication Dosage Frequency Signature Comments Components Source Medication Medication Date Date Medication? Clinician (SIG) Name Name cinacalcet Yes [id number] TAKE 1 M ethodi (SENSIPAR) 3-[address] 30 MG 00:00: MOUTH Hospita tablet 00 TWICE A l DAY cinacalcet 2022-0 Yes [id number] TAKE 1 M ethodi (SENSIPAR) 3-[address] 30 MG 00:00: MOUTH Hospita tablet 00 TWICE A l DAY cinacalcet 2022-0 Yes [id number] TAKE 1 M ethodi (SENSIPAR) 3-[address] 30 MG 00:00: MOUTH Hospita tablet 00 TWICE A l DAY cinacalcet 2022-0 Yes [id number] TAKE 1 M ethodi (SENSIPAR) 3-[address] 30 MG 00:00: MOUTH Hospita tablet 00 TWICE A l DAY cinacalcet 2022-0 Yes [id number] TAKE 1 M ethodi (SENSIPAR) 1-[address] 30 MG 00:00: MOUTH Hospita tablet 00 TWICE A l DAY cinacalcet 2022-0 3- No [id number] TAKE 1 Methodi (SENSIPAR) 07-06-[address] 30 MG 00:00: 00:00 MOUTH Hospita tablet 00 :00 TWICE A l DAY cinacalcet 2022-0 3- No [id number] TAKE 1 Methodi (SENSIPAR) 07-06-[address] 30 MG 00:00: 00:00 MOUTH Hospita tablet 00 :00 TWICE A l DAY cinacalcet 2022-0 3- No [id number] TAKE 1 Methodi (SENSIPAR) 07-06-[address] 30 MG 00:00: 00:00 MOUTH Hospita tablet 00 :00 TWICE A l DAY cinacalcet 2022-0 3- No [id number] TAKE 1 Methodi (SENSIPAR) 07-06-[address] 30 MG 00:00: 00:00 MOUTH Hospita tablet 00 :00 TWICE A l DAY cinacalcet 2021-06- No [id number] TAKE 1 Methodi (SENSIPAR) 08-[address] 30 MG 00:00: 18:04 MOUTH Hospita tablet 00 :09 TWICE A l DAY cinacalcet 2021-2022- No [id number] TAKE 1 Methodi (SENSIPAR) 08-[address] 30 MG 00:00: 18:04 MOUTH Hospita tablet 00 :09 TWICE A l DAY cinacalcet 2021-06- No [id number] TAKE 1 Methodi (SENSIPAR) 08-[address] 30 MG 00:00: 18:04 MOUTH Hospita tablet 00 :09 TWICE A l DAY cinacalcet 2021-06- No [id number] TAKE 1 Methodi (SENSIPAR) 08-[address] 30 MG 00:00: 18:04 MOUTH Hospita tablet 00 :09 TWICE A l DAY cinacalcet 2021-06- No [id number] TAKE 1 Methodi (SENSIPAR) 08-[address] 30 MG 00:00: 18:04 MOUTH Hospita tablet 00 :09 TWICE A l DAY cinacalcet 2021-06- No [id number] TAKE 1 Methodi (SENSIPAR) 07-[address] 30 MG 00:00: 00:00 MOUTH Hospita tablet 00 :00 TWICE A l DAY cinacalcet 2021-06- No [id number] TAKE 1 Methodi (SENSIPAR) 07-[address] 30 MG 00:00: 00:00 MOUTH Hospita tablet 00 :00 TWICE A l DAY cinacalcet 2021-06- No [id number] TAKE 1 Methodi (SENSIPAR) 07-[address] 30 MG 00:00: 00:00 MOUTH Hospita tablet 00 :00 TWICE A l DAY cinacalcet 2021-06- No [id number] TAKE 1 Methodi (SENSIPAR) 07-[address] 30 MG 00:00: 00:00 MOUTH Hospita tablet 00 :00 TWICE A l DAY cinacalcet 2021-06- No [id number] TAKE 1 Methodi (SENSIPAR) 07-[address] 30 MG 00:00: 00:00 MOUTH Hospita tablet 00 :00 TWICE A l DAY cinacalcet 2021-06- No [id number] TAKE 1 Methodi (SENSIPAR) 005-[address] 30 MG 00:00: 00:00 MOUTH Hospita tablet 00 :00 TWICE A l DAY cinacalcet 2021-06- No [id number] TAKE 1 Methodi (SENSIPAR) 0-24 - TABLET BY st 30 MG 00:00: 00:00 MOUTH Hospita tablet 00 :00 TWICE A l DAY cinacalcet 2021-06- No [id number] TAKE 1 Methodi (SENSIPAR) 0-24 - TABLET BY st 30 MG 00:00: 00:00 MOUTH Hospita tablet 00 :00 TWICE A l DAY cinacalcet 2021-06- No [id number] TAKE 1 Methodi (SENSIPAR) 0-24 - TABLET BY st 30 MG 00:00: 00:00 MOUTH Hospita tablet 00 :00 TWICE A l DAY cinacalcet 2021-06- No [id number] TAKE 1 Methodi (SENSIPAR) 0-11 05- TABLET BY st 30 MG 00:00: 00:00 MOUTH Hospita tablet 00 :00 TWICE A l DAY lisinopril Yes 20mg 20 mg. UT 20 MG 6- Health tablet 09:37: 16 NIFEdipine Yes nifedipine U T XL 11-28 ER 30 mg Health (Procardia 09:37: tablet,ext XL) 30 MG 16 ended 24 hr release 24 tablet hr TAKE 1 TABLET BY MOUTH EVERY DAY Pitavastati Yes Livalo 2 UT n Calcium 6-13 mg tablet Healt h (Livalo) 2 09:37: Take 1 MG tablet 16 tablet every day by oral route as directed for 90 days. pravastatin Yes 20mg 20 mg. UT (Pravachol) 6 Health 20 MG 09:37: tablet 16 semaglutide [...] TAKE 1 TABLET BY MOUTH EVERY DAY irbesartan Yes irbesartan U T (Avapro) 6- 300 mg Health 300 MG 09:37: tablet RX tablet 16 by other linaGLIPtin Yes Tradjenta U T (Tradjenta) 11-28 5 mg Health 5 MG tablet 09:37: tablet RX 16 by other linaGLIPtin Yes Jentadueto UT -metFORMIN 11-28 XR 5 Health HCl ER 09:37: mg-1,000 (Jentadueto 16 mg tablet, XR) 5-1000 extended MG tablet release sustained-r TAKE 1 elease 24 TABLET BY hour MOUTH EVERY DAY IN THE MORNING carvedilol Yes carvedilol U T (Coreg) 25 [...] 15 100 UNIT/ML injection HYDROcodone 2021- No [id number] 1{tbl} Q6H Take 1 UT -acetaminop 6-13 06-19 tablet by Manolo pathak ([place]) 00:00: 04:59 mouth 5-325 MG 00 :00 every 6 tablet (six) hours if needed for severe pain for up to 5 days. cinacalcet Yes cinacalcet U T (Sensipar) 07-18 30 mg Health 30 MG 00:00: tablet tablet 00 TAKE 1 TABLET BY MOUTH TWICE A DAY cinacalcet 2021- No [id number] TAKE 1 Methodi (SENSIPAR) 07-18 10-[address] 30 MG 00:00: 00:00 MOUTH Hospita tablet 00 :00 TWICE A l DAY cinacalcet 2021- No [id number] TAKE 1 Methodi (SENSIPAR) 07-18-[address] 30 MG 00:00: 00:00 MOUTH Hospita tablet 00 :00 TWICE A l DAY cinacalcet 2021- No [id number] TAKE 1 Methodi (SENSIPAR) 07-18-[address] 30 MG 00:00: 00:00 MOUTH Hospita tablet 00 :00 TWICE A l DAY cinacalcet 2021- No [id number] TAKE 1 Methodi (SENSIPAR) 07-18-[address] 30 MG 00:00: 00:00 MOUTH Hospita tablet 00 :00 TWICE A l DAY cinacalcet 2021- No [id number] TAKE 1 Methodi (SENSIPAR) 07-18-[address] 30 MG 00:00: 00:00 MOUTH Hospita tablet 00 :00 TWICE A l DAY cinacalcet 2021- No [id number] TAKE 1 Methodi (SENSIPAR) 07-[address] 30 MG 00:00: 00:00 MOUTH Hospita tablet 00 :00 TWICE A l DAY cinacalcet 2021- No [id number] 30mg Q.5D Take 1 Methodi (SENSIPAR) 07-13- tablet (30 st 30 MG 00:00: 00:00 [...] Hos radha mg tablet 43 l gabapentin gabapentin No gabapentin Arlin 300 mg 300 mg 6-25 300 mg Orthope capsule capsule 00:00: capsule dic 00 Sports Medicin e gabapentin Yes TAKE 1 Metho di (NEURONTIN) [...] 00 THREE l TIMES A DAY ACCU-CHEK 2018-0 Yes Q.5D 2 (two) Metho di FIOR PLUS 6-[address] TEST STRP 00:00: day. for Hosp gladys strip test 00 testing l strips ACCU-CHEK Yes USE Method i MULTICLIX 6-[address] LANCET 00:00: TWICE A Hospita lancets 00 DAY, l DIAGNOSIS E11.9 ACCU-CHEK 2018-0 Yes Q.5D 2 (two) Metho di FIOR [...] Hospita lancets 00 DAY, l DIAGNOSIS E11.9 Tradjenta 5 Tradjenta 5 2018-0 No 5mg Tradjenta Arlin mg tablet 5 mg tablet 5 6-13 5 mg O rthope mg by oral mg by oral 00:00: tablet 5 dic route. route. 00 mg by oral Sport s route. Medicin e TRADJENTA 5 2018-0 Yes 5mg QD Take 5 mg M ethodi mg tablet 6-[address] 00:00: daily. Hospita 00 l TRADJENTA 5 2019-0 Yes 5mg QD Take 5 mg M ethodi mg tablet 6-[address] 00:00: daily. Hospita 00 l TRADJENTA 5 2018-0 Yes 5mg QD Take 5 mg M ethodi mg tablet 6-[address] 00:00: daily. Hospita 00 l TRADJENTA 5 2019- Yes 5mg QD Take 5 mg M ethodi mg tablet 6-[address] 00:00: daily. Hospita 00 l TRADJENTA 5 Yes 5mg QD Take 5 mg M ethodi mg tablet 6-[address] 00:00: daily. Hospita 00 l ergocalcife ergocalcife No ergocalcif Arlin rol rol [...] Hospi ta 00 TIME PER l WEEK metformin metformin No metformin Arlin ER 500 [...] IN THE tablet EVENING WITH DINNER metFORMIN 2019-0 Yes TAKE 1 Method i XR 5-26 [...] hr IN THE tablet EVENING WITH DINNER Soliqua Soliqua No Soliqua Azal ea 100/33 [...] dicin needed needed spasms as e needed [place] 10 [place] 10 No [place] 10 A zalea mg-325 mg mg-325 mg [...] dicin needed needed spasms as e needed [place] 10 [place] 10 No [place] 10 A zalea mg-325 mg mg-325 mg [...] dicin needed needed spasms as e needed [place] 10 [place] 10 No [place] 10 A zalea mg-325 mg mg-325 mg [...] dicin needed needed spasms as e needed [place] 10 [place] 10 No [place] 10 A zalea mg-325 mg mg-325 mg [...] dicin needed needed spasms as e needed [place] 10 [place] 10 No [place] 10 A zalea mg-325 mg mg-325 mg 1-12 mg-325 mg Orthope tablet 1 Q tablet 1 Q 00:00: tablet 1 Q dic 4-6 HRS PRN 4-6 HRS PRN 00 4-6 HRS Sports PAIN PAIN PRN PAIN Medicin e Lipitor No Notes: Memoria 8-31 (Same As: l 02:00: Lipitor) Lipitor No Notes: Memoria 8-31 (Same As: l 02:00: Lipitor) Luke 00 Lipitor No Notes: Memoria 8-31 (Same As: l 02:00: Lipitor) Bear 00 Lipitor No Notes: Memoria 8-31 (Same As: l 02:00: Lipitor) Lipitor No Notes: Memoria 8-31 (Same As: l 02:00: Lipitor) Luke 00 Lipitor No Notes: Memoria 8-31 (Same As: l 02:00: Lipitor) Bear 00 Lipitor No Notes: Memoria 8-31 (Same As: l 02:00: Lipitor) Bear 00 Lipitor No Notes: Memoria 8-31 (Same As: l 02:00: Lipitor) Acetaminoph Yes 1 tab, PO, Memoria en 325 MG / 8 Q6H, PRN l Hydrocodone 12:49: pain, # 90 Luke Bitartrate 00 tab, 0 10 MG Oral Refill(s), Tablet given to [[place] patient ] morphine 15 2016-0 Yes 15 mg = 1 M emoria [...] 10 MG Oral Refill(s), Tablet given to [[place] patient ] morphine 15 Yes 15 mg [...] PRN l Hydrocodone 12:49: pain, # 90 Bear Bitartrate 00 tab, 0 10 MG Oral Refill(s), Tablet given to [[place] patient ] morphine 15 Yes 15 mg [...] 10 MG Oral Refill(s), Tablet given to [[place] patient ] morphine 15 Yes 15 mg [...] tab, PO, l tablet 12:49: TID, PRN Bear 00 as needed for muscle spasm, # 45 tab, 0 Refill(s) Acetaminoph Yes 1 tab, PO, Memoria en 325 MG / 8-29 Q6H, PRN l Hydrocodone 12:49: pain, # 90 Bear Bitartrate 00 tab, 0 10 MG Oral Refill(s), Tablet given to [[place] patient ] morphine 15 Yes 15 mg [...] tab, PO, l tablet 12:49: TID, PRN Bear 00 as needed for muscle spasm, # 45 tab, 0 Refill(s) Acetaminoph Yes 1 tab, PO, Memoria en 325 MG / 8-29 Q6H, PRN l Hydrocodone 12:49: pain, # 90 Luke Bitartrate 00 tab, 0 10 MG Oral Refill(s), Tablet given to [[place] patient ] morphine 15 Yes 15 mg [...] tab, PO, l tablet 12:49: TID, PRN Bear 00 as needed for muscle spasm, # 45 tab, 0 Refill(s) Acetaminoph Yes 1 tab, PO, Memoria en 325 MG / 8-29 Q6H, PRN l Hydrocodone 12:49: pain, # 90 Bear Bitartrate 00 tab, 0 10 MG Oral Refill(s), Tablet given to [[place] patient ] morphine 15 Yes 15 mg [...] tab, PO, Memoria en 325 MG / 02-13 Q6H, PRN l Hydrocodone 12:49: pain, # 90 Luke Bitartrate 00 tab, 0 10 MG Oral Refill(s), Tablet given to [[place] patient ] morphine 15 Yes 15 mg [...] 5 mg = 0.5 Memoria mg oral -29 tab, PO, l tablet 12:49: TID, PRN Bear 00 as needed for muscle spasm, # 45 tab, 0 Refill(s) MS Contin No Notes: Do Mem oria 8-28 not crush l 02:00: (Same Bear 00 as:[employer] h SR, MS Contin) MS Contin No Notes: Do Mem oria 8-28 not crush l 02:00: (Same Luke 00 as:[place] h SR, MS Contin) MS Contin No Notes: Do Mem oria 8-28 not crush l 02:00: (Same Bear 00 as:[place] h SR, MS Contin) MS [...] oria 8-28 not crush l 02:00: (Same as:[place] h SR, MS Contin) Lipitor No Notes: Memoria 8-27 (Same As: l 02:00: Lipitor) Lipitor No Notes: Memoria 8-27 (Same As: l 02:00: Lipitor) Lipitor No Notes: Memoria 8-27 (Same As: l 02:00: Lipitor) Luke 00 Lipitor No Notes: Memoria 8-27 (Same As: l 02:00: Lipitor) Lipitor No Notes: Memoria 8-27 (Same As: l 02:00: Lipitor) Lipitor No Notes: Memoria 8-27 (Same As: l 02:00: Lipitor) Lipitor No Notes: Memoria 8-27 (Same As: l 02:00: Lipitor) Lipitor No Notes: Memoria 8-27 (Same As: l 02:00: Lipitor) Tylenol No Notes: Do Memor ia 8-26 not exceed l 23:00: 4 gm/day. (Same as: Tylenol) Tylenol No Notes: Do Memor ia 8-26 not exceed l 23:00: 4 gm/day. (Same as: Tylenol) Tylenol No Notes: Do Memor ia 8-26 not exceed l 23:00: 4 gm/day. (Same as: Tylenol) Tylenol No Notes: Do Memor ia 8-26 not exceed l 23:00: 4 gm/day. (Same as: Tylenol) Tylenol No Notes: Do Memor ia 8-26 not exceed l 23:00: 4 gm/day. (Same as: Tylenol) Tylenol No Notes: Do Memor ia 8-26 not exceed l 23:00: 4 gm/day. (Same as: Tylenol) Tylenol No Notes: Do Memor ia 02-10 not exceed l 23:00: 4 gm/day. Bear 00 (Same as: Tylenol) Tylenol No Notes: Do Memor ia 8- not exceed l 23:00: 4 gm/day. Luke 00 (Same as: Tylenol) Bisacodyl No Notes: Memori a 8- (Same As: l 22:47: Dulcolax, Bear 00 Correctol) (Do Not Crush) "Do Not Crush" Bisacodyl No Notes: Memori a 8 (Same As: l 22:47: Dulcolax, Bear 00 Correctol) (Do Not Crush) "Do Not [...] a 8- (Same As: l 22:47: Dulcolax, Bear 00 Correctol) (Do Not Crush) "Do Not Crush" Bisacodyl No Notes: Memori a 8- (Same As: l 22:47: Dulcolax, Luke 00 Correctol) (Do Not Crush) "Do Not Crush" Bisacodyl No Notes: Memori a 8- (Same As: l 22:47: Dulcolax, Luke 00 Correctol) (Do Not Crush) "Do Not Crush" Docusate No Notes: Memoria 8 (Same as: l 22:00: Colace) Bear 00 (Do Not Crush) Docusate 2016-0 No Notes: Memoria 8-26 (Same as: l 22:00: Colace) Luke 00 (Do Not Crush) Docusate No Notes: Memoria 8-26 (Same as: l 22:00: Colace) Luke 00 (Do Not Crush) Docusate No Notes: Memoria 8-26 (Same as: l 22:00: Colace) Bear 00 (Do Not Crush) Docusate No Notes: Memoria 8-26 (Same as: l 22:00: Colace) Bear 00 (Do Not Crush) Docusate No Notes: [...] a 8-26 (Same As: l 21:04: Dulcolax, Bear 00 Bisco-Lax) Simethicone No Notes: Boy tadeo 8-26 (Same as: l 21:04: Mylicon) Bear 00 Bisacodyl 2015- No Notes: Memori a 8-26 (Same As: l 21:04: Dulcolax, Luke 00 Bisco-Lax) Simethicone No Notes: Boy tadeo 8-26 (Same as: l 21:04: Mylicon) Bear 00 Bisacodyl No Notes: Memori a 8-26 (Same As: l 21:04: Dulcolax, Bear 00 Bisco-Lax) Simethicone No Notes: Boy tadeo 8-26 (Same as: l 21:04: Mylicon) Bear 00 Bisacodyl No Notes: Memori a 8-26 [...] a 8-26 (Same As: l 21:04: Dulcolax, Bear 00 Bisco-Lax) Simethicone No Notes: Boy tadeo 8-26 (Same as: l 21:04: Mylicon) Bear 00 Bisacodyl No Notes: Memori a 8-26 (Same As: l 21:04: Dulcolax, Bear 00 Bisco-Lax) Baclofen No Notes: Memoria 8-26 (Same As: l 14:00: Lioresal) Bear Baclofen No Notes: Memoria 8-26 (Same As: l 14:00: Lioresal) Luke Baclofen No Notes: Memoria 8-26 (Same As: l 14:00: Lioresal) Bear Baclofen No Notes: Memoria 8-26 (Same As: l 14:00: Lioresal) Luke Baclofen No Notes: Memoria 8-26 (Same As: l 14:00: Lioresal) Luke Baclofen No Notes: Memoria 8-26 (Same As: l 14:00: Lioresal) Bear Baclofen No Notes: Memoria 8-26 (Same As: l 14:00: Lioresal) Bear Baclofen No Notes: Memoria 8-26 (Same As: [...] / 02-09 (Same as: l Hydrocodone 22:52: [place] Anitra nn Bitartrate 00 325/5) Do 5 MG Oral not exceed Tablet 4gm/day of [[place] acetaminop 5/325] hen. Acetaminoph No Notes: Boy tadeo en 325 MG / 02-09 (Same as: l Hydrocodone 22:52: [place] Anitra nn Bitartrate 00 325/5) Do 5 MG Oral not exceed Tablet 4gm/day of [[place] acetaminop 5/325] hen. Acetaminoph No Notes: Boy tadeo en 325 MG / 02-09 (Same as: l Hydrocodone 22:52: [place] Anitra nn Bitartrate 00 325/5) Do 5 MG Oral not exceed Tablet 4gm/day of [[place] acetaminop 5/325] hen. Acetaminoph No Notes: Boy tadeo en 325 MG / 02-09 (Same as: l Hydrocodone 22:52: [place] Anitra nn Bitartrate 00 325/5) Do 5 MG Oral not exceed Tablet 4gm/day of [[place] acetaminop 5/325] hen. Acetaminoph No Notes: Boy tadeo en 325 MG / 02-09 (Same as: l Hydrocodone 22:52: [place] Anitra nn Bitartrate 00 325/5) Do 5 MG Oral not exceed Tablet 4gm/day of [[place] acetaminop 5/325] hen. Acetaminoph No Notes: Boy tadeo en 325 MG / 02-09 (Same as: l Hydrocodone 22:52: [place] Anitra nn Bitartrate 00 325/5) Do 5 MG Oral not exceed Tablet 4gm/day of [[place] acetaminop 5/325] hen. Acetaminoph No Notes: Boy tadeo en 325 MG / 02-09 (Same as: l Hydrocodone 22:52: [place] Anitra nn Bitartrate 00 325/5) Do 5 MG Oral not exceed Tablet 4gm/day of [[place] acetaminop 5/325] hen. Acetaminoph No Notes: Boy tadeo en 325 MG / 02-09 (Same as: l Hydrocodone 22:52: [place] Anitra nn Bitartrate 00 325/5) Do 5 MG Oral not exceed Tablet 4gm/day of [[place] acetaminop 5/325] hen. tradjenta No tradjenta, Me [...] 5 mg, 1 l 20:00: tab, Drug Bear 00 form: MISC, Route: PO, Daily, 02/09/16 [...] 5 mg, 1 l 20:00: tab, Drug Bear form: MISC, Route: PO, Daily, 02/09/16 15:00:00 CDT, Duration: 30 day, Stop date: 03/10/16 9:00:00 CDT Rosuvastati 2015-0 Yes 2.5 mg, Mem oria [...] 00 30 tab, 0 [Crestor] Refill(s) Rosuvastati 2016- Yes 2.5 mg, Mem oria n calcium 5 8-24 PO, l MG Oral 16:18: Bedtime, # Herm robert Tablet 00 30 tab, 0 [Crestor] Refill(s) Rosuvastati 2015- Yes 2.5 mg, Mem oria n calcium 5 8-24 PO, l MG Oral 16:18: Bedtime, # Herm robert Tablet 00 30 tab, 0 [Crestor] Refill(s) Rosuvastati 2015- Yes 2.5 mg, Mem oria n calcium [...] 8-24 (Same as: l Flush 15:15: BD Bear Posiflush) Sodium 2015-0 No 25 mL, Memoria Chloride 8-24 Route: IV, l 0.9% IV 15:15: date: [...] No Notes: Memor ia 20 MG Oral 824 (Same as: l Tablet 14:00: Lasix) May [...] 8-24 Route: PO, l 14:00: Drug form: Bear 00 TAB, Daily, Dosing Weight 89.545, kg, [...] Dissolve l 14:00: in 8 oz of Bear 00 water or juice. (Same as: Miralax) [...] 8-24 Route: PO, l 14:00: Drug form: Bear 00 TAB, Daily, Dosing Weight 89.545, kg, [...] 8-24 Route: PO, l 14:00: Drug form: Bear 00 TAB, Daily, Dosing Weight 89.545, kg, [...] Dissolve l 14:00: in 8 oz of Bear 00 water or juice. (Same as: Miralax) Spironolact 0 No Notes: Boy tadeo one 8-24 (Same As: l 14:00: Aldactone) irbesartan No Notes: Memor ia 8-24 (Same l 14:00: as:Avapro) Tradjenta No 5 mg, Memoria 8-24 Route: PO, l 14:00: Drug form: Bear 00 TAB, Daily, Dosing Weight 89.545, kg, [...] 824 Route: PO, l 14:00: Drug form: Bear 00 TAB, Daily, Dosing Weight 89.545, kg, [...] 824 Route: IM, l 06:52: Drug form: Bear 00 PDR/INJ, PRN, Dosing Weight 89.545, kg, [...] Roll in l Human 06:52: palms of Bear 00 hands gently; Do not shake vigorously [...] Roll in l Human 06:52: palms of Bear 00 hands gently; Do not shake vigorously . (Same as: NovoLOG) "single patient use only" WASTE: F/P - Black; E - Municipal Trash Bin Stable for 28 days at room temperatur e. Expires in days from ____Date Glucagon 0 No 1 mg, Memoria 8-24 Route: IM, l 06:52: Drug form: Bear 00 PDR/INJ, PRN, Dosing Weight 89.545, kg, [...] CDT Insulin, 2016-0 No Notes: Memoria Aspart, 824 Roll in l Human 06:52: palms of Bear 00 hands gently; Do not shake vigorously . (Same as: NovoLOG) "single patient use only" WASTE: F/P - Black; E - Municipal Trash Bin Stable for 28 days at room temperatur e. Expires in days from ____Date Glucagon 2015-0 No 1 mg, Memoria 824 Route: IM, l 06:52: Drug form: Bear 00 PDR/INJ, PRN, Dosing Weight 89.545, kg, [...] Roll in l Human 06:52: palms of Bear 00 hands gently; Do not shake vigorously . (Same as: NovoLOG) "single patient use only" WASTE: F/P - Black; E - Municipal Trash Bin Stable for 28 days at room temperatur e. Expires in days from ____Date Glucagon 2016-0 No 1 mg, Memoria 8-24 Route: IM, l 06:52: Drug form: Bear 00 PDR/INJ, PRN, Dosing Weight 89.545, kg, [...] Roll in l Human 06:52: palms of Bear 00 hands gently; Do not shake vigorously . (Same as: NovoLOG) "single patient use only" WASTE: F/P - Black; E - Municipal Trash Bin Stable for 28 days at room temperatur e. Expires in days from ____Date Glucagon 2016-0 No 1 mg, Memoria 8-24 Route: IM, l 06:52: Drug form: Bear 00 PDR/INJ, PRN, Dosing Weight 89.545, kg, [...] tadeo 8-24 Drug form: l 02:00: TAB, Bear 00 Bedtime, Dosing Weight 89.545, kg, Start [...] ia 8-24 Give with l 02:00: food. Bear 00 (Same As: Coreg) Crestor No Route: [...] ia 8-24 Give with l 02:00: food. Bear 00 (Same As: Coreg) Crestor 2016-0 No Route: PO, Boy tadeo 8-24 Drug [...] ia 8-24 Give with l 02:00: food. Bear 00 (Same As: Coreg) Crestor No Route: [...] tadeo 8-24 Drug form: l 02:00: TAB, Bear 00 Bedtime, Dosing Weight 89.545, kg, Start [...] tadeo 8-24 Drug form: l 02:00: TAB, Bear 00 Bedtime, Dosing Weight 89.545, kg, Start [...] from ____Date carvedilol No Notes: Memor ia - Give with l 02:00: food. Bear 00 (Same As: Coreg) Crestor No Route: PO, Boy tadeo 02-08 Drug form: l 02:00: TAB, Bear 00 Bedtime, Dosing Weight 89.545, kg, Start [...] tab, PO, l Tablet 23:47: Daily, 0 Bear [Tradjenta] 00 Refill(s) 3 ML Yes 50 units, Memoria Insulin 02-07 SUB-Q, l Glargine 23:47: Bedtime, 0 Her kowalski 100 UNT/ML 00 Refill(s) Prefilled Syringe [Lantus] glimepiride Yes 4 mg, PO, M emoria 02-07 Daily, 0 l 23:47: Refill(s) Luke 00 Docusate Yes 100 mg = 1 Mem oria Sodium 100 8-23 cap, PO, l MG Oral 23:47: BID, 0 Luke Capsule 00 Refill(s) [Colace] Linagliptin No 5 mg = 1 Me moria 5 MG Oral 8-23 tab, PO, l Tablet 23:47: Daily, 0 Bear [Tradjenta] 00 Refill(s) 3 ML Yes 50 units, Memoria Insulin 8-23 SUB-Q, l Glargine 23:47: Bedtime, 0 Her kowalski 100 UNT/ML 00 Refill(s) Prefilled Syringe [Lantus] glimepiride Yes 4 mg, PO, M emoria 8-23 Daily, 0 l 23:47: Refill(s) Bear Docusate Yes 100 mg = 1 Mem [...] PO, l MG Oral 23:47: BID, 0 Bear Capsule 00 Refill(s) [Colace] Linagliptin No 5 mg = 1 Me moria 5 MG Oral 8-23 tab, PO, l Tablet 23:47: Daily, 0 Bear [Tradjenta] 00 Refill(s) 3 ML Yes 50 units, Memoria Insulin 8-23 SUB-Q, l Glargine 23:47: Bedtime, 0 Her kowalski 100 UNT/ML 00 Refill(s) Prefilled Syringe [Lantus] glimepiride Yes 4 mg, PO, M emoria 8-23 Daily, 0 l 23:47: Refill(s) Bear Docusate Yes 100 mg = 1 Mem oria Sodium 100 8-23 cap, PO, l MG Oral 23:47: BID, 0 Bear Capsule 00 Refill(s) [Colace] Linagliptin No 5 mg = 1 Me moria 5 MG Oral 8-23 tab, PO, l Tablet 23:47: Daily, 0 Luke [Tradjenta] 00 Refill(s) 3 ML Yes 50 units, Memoria Insulin 8-23 SUB-Q, l Glargine 23:47: Bedtime, 0 Her kowalski 100 UNT/ML 00 Refill(s) Prefilled Syringe [Lantus] glimepiride Yes 4 mg, PO, M emoria 8-23 Daily, 0 l 23:47: Refill(s) Bear Docusate Yes 100 mg = 1 Mem [...] emoria 8-23 Daily, 0 l 23:47: Refill(s) Bear 00 Docusate Yes 100 mg = 1 Mem oria Sodium 100 8-23 cap, PO, l MG Oral 23:47: BID, 0 Luke Capsule 00 Refill(s) [Colace] Linagliptin No 5 mg = 1 Me moria 5 MG Oral 8-23 tab, PO, l Tablet 23:47: Daily, 0 Bear [Tradjenta] 00 Refill(s) 3 ML Yes 50 units, Memoria Insulin 8-23 SUB-Q, l Glargine 23:47: Bedtime, 0 Her kowalski 100 UNT/ML 00 Refill(s) Prefilled Syringe [Lantus] glimepiride Yes 4 mg, PO, M emoria 8-23 Daily, 0 l 23:47: Refill(s) Bear 00 Docusate Yes 100 mg = 1 [...] PO, l de 0.1 MG 23:40: PRN Bear Oral Tablet 00 Hypertensi on, 0 Refill(s) Clonidine No 0.1 mg = 1 Me moria Hydrochlori 8-23 tab, PO, l de 0.1 MG 23:40: PRN Bear Oral Tablet 00 Hypertensi on, 0 Refill(s) Clonidine No 0.1 mg = 1 Me moria Hydrochlori 8-23 tab, PO, l de 0.1 MG 23:40: PRN Bear Oral Tablet 00 Hypertensi on, 0 Refill(s) Clonidine No 0.1 mg = 1 Me moria Hydrochlori 8-23 tab, PO, l de 0.1 MG 23:40: PRN Bear Oral Tablet 00 Hypertensi on, 0 Refill(s) Clonidine No 0.1 mg = 1 Me moria Hydrochlori 8-23 tab, PO, l de 0.1 MG 23:40: PRN Luke Oral Tablet 00 Hypertensi on, 0 Refill(s) Clonidine No 0.1 mg = 1 Me moria Hydrochlori 8-23 tab, PO, l de 0.1 MG 23:40: PRN Bear Oral Tablet 00 Hypertensi on, 0 Refill(s) Clonidine No 0.1 mg = 1 Me moria Hydrochlori 8-23 tab, PO, l de 0.1 MG 23:40: PRN Bear Oral Tablet 00 Hypertensi on, 0 Refill(s) Clonidine No 0.1 mg = 1 Me moria Hydrochlori 8-23 tab, PO, l de 0.1 MG 23:40: PRN Luke Oral Tablet 00 Hypertensi on, 0 Refill(s) Ancef + No Notes: Memoria sodium 8-23 (Same As: l chloride 23:00: Ancef, Bear 0.9% INJ 00 Kefzol) 100 mL MEDICATION WASTE Product Size: 1000 mg Product Wasted: ___ mg Ancef + No Notes: Memoria sodium 8-23 (Same As: l chloride 23:00: Ancef, Bear 0.9% INJ 00 Kefzol) 100 mL MEDICATION WASTE Product Size: 1000 mg Product Wasted: ___ mg Ancef + No Notes: Memoria sodium 8-23 (Same As: l chloride 23:00: Ancef, Bear 0.9% INJ 00 Kefzol) 100 mL MEDICATION [...] 8-23 (Same As: l chloride 23:00: Ancef, Bear 0.9% INJ 00 Kefzol) 100 mL MEDICATION [...] (Same as: l MG Oral 22:00: Colace) Bear Capsule 00 (Do Not [Colace] Crush) Docusate No Notes: Memoria Sodium 100 8-23 (Same as: l MG Oral 22:00: Colace) Bear Capsule 00 (Do Not [Colace] Crush) Docusate No Notes: Memoria Sodium 100 8-23 (Same as: l MG Oral 22:00: Colace) Luke Capsule 00 (Do Not [Colace] Crush) Docusate No Notes: Memoria Sodium 100 8-23 (Same as: l MG Oral 22:00: Colace) Luke Capsule 00 (Do Not [Colace] Crush) Docusate No Notes: Memoria Sodium 100 8-23 (Same as: l MG Oral 22:00: Colace) Bear Capsule 00 (Do Not [Colace] Crush) Docusate No Notes: Memoria Sodium 100 8-23 (Same as: l MG Oral 22:00: Colace) Bear Capsule 00 (Do Not [Colace] Crush) Docusate No Notes: Memoria Sodium 100 8-23 (Same as: l MG Oral 22:00: Colace) Luke Capsule 00 (Do Not [Colace] Crush) Docusate No Notes: Memoria Sodium 100 8-23 (Same as: l MG Oral 22:00: Colace) Luke Capsule 00 (Do Not [Colace] Crush) Ofirmev 2016-0 No 1,000 mg, Memor ia 02-07 Route: IV, l 19:25: ONCE, Bear 00 Dosing Weight 89, kg, Start date: [...] ia 02-07 Route: IV, l 19:25: ONCE, Bear 00 Dosing Weight 89, kg, Start date: 02/08/16 14:25:00 CDT, Stop date: 02/08/16 14:25:00 CDT Ondansetron No Notes: Boy tadeo 02-07 (Same as: l 18:22: Zofran) Luke 00 MEDICATION WASTE Product Size: 4 mg Product Wasted: ___ mg Flumazenil No Notes: Memor ia 02-07 (Same as: l 18:22: Romazicon) Luke 00 Naloxone No Notes: Memoria 02-07 Same as l 18:22: Narcan Morphine No Notes: Memoria 02-07 (Same l 18:22: as:MORPhin Bear 00 e Sulfate) Sodium No 1,000 mL, Memori a Chloride 02-07 Rate: 125 l 0.154 18:22: ml/hr, Bear MEQ/ML 00 Infuse Injectable over: 8 Solution hr, Route: IV, Dosing Weight 89.545 kg, Total Volume: 1,000, Start date: 02/08/16 13:22:00 CDT, Duration: 30 day, Stop date: 03/09/16 13:21:00 CDT Ondansetron No Notes: Boy tadeo 02-07 (Same as: l 18:22: Zofran) Bear 00 MEDICATION WASTE Product Size: 4 mg Product Wasted: ___ mg Flumazenil No Notes: Memor ia 02-07 (Same as: l 18:22: Romazicon) Luke 00 Naloxone No Notes: Memoria 8 Same as l 18:22: Narcan Morphine No Notes: Memoria 8 (Same l 18:22: as:MORPhin Bear 00 e Sulfate) Sodium No 1,000 mL, Memori a Chloride 8 Rate: 125 l 0.154 18:22: ml/hr, Luke [...] ia 02-07 (Same as: l 18:22: Romazicon) Bear 00 Naloxone No Notes: Memoria 02-07 Same as l 18:22: Narcan Luke 00 Morphine No Notes: Memoria 02-07 (Same l 18:22: as:MORPhin Bear 00 e Sulfate) Sodium No 1,000 mL, [...] 02-07 (Same as: l 18:22: Romazicon) Luke 00 Naloxone No Notes: Memoria 02-07 Same as l 18:22: Narcan Luke Morphine No Notes: Memoria 02-07 (Same l 18:22: as:MORPhin Bear 00 e Sulfate) Sodium No 1,000 mL, Memori a Chloride 02-07 Rate: 125 l 0.154 18:22: ml/hr, Bear MEQ/ML 00 Infuse Injectable over: 8 Solution hr, Route: IV, Dosing Weight 89.545 kg, Total Volume: 1,000, Start date: 02/08/16 13:22:00 CDT, Duration: 30 day, Stop date: 03/09/16 13:21:00 CDT Ondansetron No Notes: Boy tadeo 8-23 (Same as: l 18:22: Zofran) Bear 00 MEDICATION WASTE Product Size: 4 mg Product Wasted: ___ mg Flumazenil No Notes: Memor ia 8- (Same as: l 18:22: Romazicon) Bear 00 Naloxone No Notes: Memoria 8 Same as l 18:22: Narcan Luke 00 Morphine No Notes: Memoria - (Same l 18:22: as:MORPhin Luke 00 e Sulfate) Sodium No 1,000 mL, Memori a Chloride 02-07 Rate: 125 l 0.154 18:22: ml/hr, Luke MEQ/ML 00 Infuse Injectable over: 8 Solution hr, Route: IV, Dosing Weight 89.545 kg, Total Volume: 1,000, Start date: 02/08/16 13:22:00 CDT, Duration: 30 day, Stop date: 03/09/16 13:21:00 CDT Ondansetron No Notes: Boy tadeo 23 (Same as: l 18:22: Zofran) Bear 00 MEDICATION WASTE Product Size: 4 mg Product Wasted: ___ mg Flumazenil No Notes: Memor ia - (Same as: l 18:22: Romazicon) Luke 00 Naloxone No Notes: Memoria 02-07 Same as l 18:22: Narcan Morphine No Notes: Memoria -23 (Same l 18:22: as:MORPhin Luke 00 e [...] tadeo 8-23 (Same as: l 18:22: Zofran) Bear 00 MEDICATION WASTE Product Size: 4 mg Product Wasted: ___ mg Flumazenil No Notes: Memor ia 8-23 (Same as: l 18:22: Romazicon) Bear Naloxone No Notes: Memoria 8-23 Same as l 18:22: Narcan Luke Morphine No Notes: Memoria 8-23 (Same l 18:22: as:MORPhin Luke 00 e Sulfate) Sodium No 1,000 mL, Memori a Chloride 02-07 Rate: 125 l 0.154 18:22: ml/hr, Bear MEQ/ML 00 Infuse Injectable over: 8 Solution hr, Route: IV, Dosing Weight 89.545 kg, Total Volume: 1,000, Start date: 02/08/16 13:22:00 CDT, Duration: 30 day, Stop date: 03/09/16 13:21:00 CDT Ondansetron No Notes: Boy tadeo 8-23 (Same as: l 18:22: Zofran) Bear 00 MEDICATION WASTE Product Size: 4 mg Product Wasted: ___ mg Flumazenil No Notes: Memor ia 8- (Same as: l 18:22: Romazicon) Bear Naloxone No Notes: Memoria 8-23 Same as l 18:22: Narcan Luke Morphine No Notes: Memoria 8-23 (Same l 18:22: as:MORPhin Bear 00 e Sulfate) Sodium No 1,000 mL, Memori a Chloride 8 Rate: 125 l 0.154 18:22: ml/hr, Bear MEQ/ML 00 Infuse Injectable over: 8 Solution hr, Route: IV, Dosing Weight 89.545 kg, Total Volume: 1,000, Start date: 02/08/16 13:22:00 CDT, Duration: 30 day, Stop date: 09/22/16 13:21:00 CDT Morphine No Notes: Memoria 8- Dose: l 18:00: Delay: Luke 00 Basal rate: 4hr limit: (Same as:[place]) Morphine No Notes: Memoria 8-23 Dose: l 18:00: Delay: Bear 00 Basal rate: 4hr limit: (Same as:[place]) Morphine No Notes: Memoria 8- Dose: l 18:00: Delay: Luke 00 Basal rate: 4hr limit: (Same as:[place]) Morphine No Notes: Memoria 8- Dose: l 18:00: Delay: Luke 00 Basal rate: 4hr limit: (Same as:[place]) Morphine No Notes: Memoria 8- Dose: l 18:00: Delay: Bear 00 Basal rate: 4hr limit: (Same as:[place]) Morphine No Notes: Memoria 8- Dose: l 18:00: Delay: Luke 00 Basal rate: 4hr limit: (Same as:[place]) Morphine No Notes: Memoria 8- Dose: l 18:00: Delay: Luke 00 Basal rate: 4hr limit: (Same as:[place]) Morphine No Notes: Memoria 8- Dose: l 18:00: Delay: Luke 00 Basal rate: 4hr limit: (Same as:[place]) Naloxone No Notes: Memoria 02-07 Same as l 17:53: Narcan Luke 00 Acetaminoph No Notes: Do M emoria en 325 MG / 02-07 not exceed l Hydrocodone 17:53: 4gm/day of Luke Bitartrate 00 acetaminop 10 MG Oral hen. (Same Tablet as: [place] [[place] 325/10) 10/325] Zofran No Notes: Memoria 02-07 [...] 10 MG Oral hen. (Same Tablet as: [place] [[place] 325/10) ] Zofran No Notes: Memoria 8- (Same as: l 17:53: Zofran) Bear 00 MEDICATION WASTE Product Size: 4 mg Product Wasted: ___ mg Naloxone No Notes: Memoria 8- Same as l 17:53: Narcan Luke Acetaminoph No Notes: Do M emoria en 325 MG / 02-07 not exceed l Hydrocodone 17:53: 4gm/day of Bear Bitartrate 00 acetaminop 10 MG Oral hen. (Same Tablet as: [place] [[place] 325/10) ] Zofran No Notes: Memoria 8 (Same as: l 17:53: Zofran) Luke 00 MEDICATION WASTE Product Size: 4 mg Product Wasted: ___ mg Naloxone No Notes: Memoria 8- Same as l 17:53: Narcan Bear Acetaminoph No Notes: Do M emoria en 325 MG / 02-07 not exceed l Hydrocodone 17:53: 4gm/day of Luke Bitartrate 00 acetaminop 10 MG Oral hen. (Same Tablet as: [place] [[place] 325/10) ] Zofran No Notes: Memoria 8 (Same as: l 17:53: Zofran) Luke 00 MEDICATION WASTE Product Size: 4 mg Product Wasted: ___ mg Naloxone No Notes: Memoria 8- Same as l 17:53: Narcan Bear Acetaminoph No Notes: Do M emoria en 325 MG / 8 not exceed l Hydrocodone 17:53: 4gm/day of Bear Bitartrate 00 acetaminop 10 MG Oral hen. (Same Tablet as: [place] [[place] 325/10) ] Zofran No Notes: Memoria 8- (Same as: l 17:53: Zofran) Bear 00 MEDICATION WASTE Product Size: 4 mg Product Wasted: ___ mg Naloxone No Notes: Memoria 8- Same as l 17:53: Narcan Luke Acetaminoph No Notes: Do M emoria en 325 MG / 8 not exceed l Hydrocodone 17:53: 4gm/day of Luke Bitartrate 00 acetaminop 10 MG Oral hen. (Same Tablet as: [place] [[place] 325/10) 10/325] Zofran No Notes: Memoria 8- (Same as: l 17:53: Zofran) Bear 00 MEDICATION WASTE Product Size: 4 mg Product Wasted: ___ mg Naloxone No Notes: Memoria 8- Same as l 17:53: Narcan Luke Acetaminoph No Notes: Do M emoria en 325 MG / 02-07 not exceed l Hydrocodone 17:53: 4gm/day of Bear Bitartrate 00 acetaminop 10 MG Oral hen. (Same Tablet as: [place] [[place] 325/10) 10/325] Zofran No Notes: Memoria 8- (Same as: l 17:53: Zofran) Luke 00 MEDICATION WASTE Product Size: 4 mg Product Wasted: ___ mg Naloxone No Notes: Memoria 8- Same as l 17:53: Narcan Luke 00 Acetaminoph No Notes: Do M emoria en 325 MG / 02-07 not exceed l Hydrocodone 17:53: 4gm/day of Luke Bitartrate 00 acetaminop 10 MG Oral hen. (Same Tablet as: [place] [[place] 325/10) 10/325] Zofran No Notes: Memoria 8- (Same as: l 17:53: Zofran) Bear 00 MEDICATION WASTE Product Size: 4 mg Product Wasted: ___ mg Robaxin No Notes: Memoria 8-23 (Same l 17:52: as:Robaxin Luke 00 ) Lactated No 1,000 mL, Boy tadeo [...] Notes: Memoria 02-07 Chlorasept l 17:52: ic Ethan (Same as: Chlorasept ic, Sore Throat Ethan) WASTE: F/P - Black; E - Municipal [...] Notes: Memoria 02-07 Chlorasept l 17:52: ic Ethan (Same as: Chlorasept ic, Sore Throat Ethan) WASTE: F/P - Black; E - Municipal Trash Bin Robaxin No Notes: Memoria 8 (Same l 17:52: as:Robaxin ) Lactated No 1,000 mL, Boy tadeo Ringers 8- Rate: 75 l 1,000 mL 17:52: ml/hr, Infuse over: 13.3 hr, Route: IV, Dosing Weight 89.545 kg, Total Volume: 1,000, Start date: 02/08/16 12:52:00 CDT, Duration: 30 day, Stop date: 03/09/16 12:51:00 CDT Flexeril No Notes: Memoria 8- (Same As: l 17:52: Flexeril) Bear 00 Diphenhydra No Notes: Boy tadeo mine 8- (Same as: l 17:52: Benadryl) phenol No Notes: Memoria 02-07 Chlorasept l 17:52: ic Ethan (Same as: Chlorasept ic, Sore Throat Ethan) WASTE: F/P - Black; E - Municipal [...] Notes: Memoria 02-07 Chlorasept l 17:52: ic Ethan (Same as: Chlorasept ic, Sore Throat Ethan) WASTE: F/P - Black; E - Municipal Trash Bin Robaxin No Notes: Memoria 8-23 (Same l 17:52: as:Robaxin ) Lactated 2016-0 No 1,000 mL, Boy tadeo Ringers 8-23 [...] Notes: Memoria 8 Chlorasept l 17:52: ic Ethan (Same as: Chlorasept ic, Sore Throat Ethan) WASTE: F/P - Black; E - Municipal [...] mine 02-07 (Same as: l 17:52: Benadryl) Luke 00 phenol No Notes: Memoria 02-07 Chlorasept l 17:52: ic Ethan (Same as: Chlorasept ic, Sore Throat Ethan) WASTE: F/P - Black; E - Municipal Trash Bin Flexeril No Notes: Memoria 02-07 (Same As: l 17:52: Flexeril) Diphenhydra No Notes: Boy tadeo mine 02-07 (Same as: l 17:52: Benadryl) phenol No Notes: Memoria 02-07 Chlorasept l 17:52: ic Ethan (Same as: Chlorasept ic, Sore Throat Ethan) WASTE: F/P - Black; E - Municipal Trash Bin Diphenhydra No Notes: Boy tadeo mine 02-07 (Same as: l 17:52: Benadryl) phenol No Notes: Memoria 02-07 Chlorasept l 17:52: ic Ethan (Same as: Chlorasept ic, Sore Throat Ethan) WASTE: F/P - Black; E - Municipal [...] a 02-07 Same as: l 03:00: Ancef Bear 00 ceFAZolin 0 No Notes: Memori a 02-07 Same as: l 03:00: Ancef ceFAZolin 2015-0 No Notes: Memori a 02-07 Same as: l 03:00: Ancef Luke 00 ceFAZolin 2015-0 No Notes: Memori a 02-07 Same as: l 03:00: Ancef ceFAZolin No Notes: Memori a 02-07 Same as: l 03:00: Ancef ceFAZolin 0 No Notes: Memori a 02-07 Same as: l 03:00: Ancef ceFAZolin 0 No Notes: Memori a 02-07 Same as: [...] / 01-17 Same as l Hydrocodone 14:32: [place] Anitra nn Bitartrate 00 325-7.5mg 7.5 MG Oral Do not Tablet exceed [[place] 4gm/day of 7.5/325] acetaminop hen. Acetaminoph No Notes: Boy tadeo en 325 MG / 01-17 Same as l Hydrocodone 14:32: [place] Anitra nn Bitartrate 00 325-7.5mg 7.5 MG Oral Do not Tablet exceed [[place] 4gm/day of 7.5/325] acetaminop hen. Acetaminoph No Notes: Boy tadeo en 325 MG / 01-17 Same as l Hydrocodone 14:32: [place] Anitra nn Bitartrate 00 325-7.5mg 7.5 MG Oral Do not Tablet exceed [[place] 4gm/day of 7.5/325] acetaminop hen. Acetaminoph No Notes: Boy tadeo en 325 MG / 02 Same as l Hydrocodone 14:32: [place] Anitra nn Bitartrate 00 325-7.5mg 7.5 MG Oral Do not Tablet exceed [[place] 4gm/day of 7.5/325] acetaminop hen. Acetaminoph No Notes: Boy tadeo en 325 MG / 02 Same as l Hydrocodone 14:32: [place] Anitra nn Bitartrate 00 325-7.5mg 7.5 MG Oral Do not Tablet exceed [[place] 4gm/day of 7.5/325] acetaminop hen. Acetaminoph No Notes: Boy tadeo en 325 MG / 02 Same as l Hydrocodone 14:32: [place] Anitra nn Bitartrate 00 325-7.5mg 7.5 MG Oral Do not Tablet exceed [[place] 4gm/day of 7.5/325] acetaminop hen. Acetaminoph 2016-0 No Notes: Boy tadeo en 325 MG / 01-17 Same as l Hydrocodone 14:32: [place] Anitra nn Bitartrate 00 325-7.5mg 7.5 MG Oral Do not Tablet exceed [[place] 4gm/day of 7.5/325] acetaminop hen. Acetaminoph 0 No Notes: Boy tadeo en 325 MG / 02 Same as l Hydrocodone 14:32: [place] Anitra nn Bitartrate 00 325-7.5mg 7.5 MG Oral Do not Tablet exceed [[place] 4gm/day of 7.5/325] acetaminop hen. sodium 2015-0 No 15 mmol, 5 Memor [...] CDT, Stop date: 02/16/16 16:41:00 CDT heparin 2015-0 No Notes: Memoria sodium, 7-31 porcine l porcine 02:00: heparin Bear 2500 UNT/ML 00 Injectable Solution heparin No Notes: Memoria sodium, 7-31 porcine l porcine 02:00: heparin Luke 2500 UNT/ML 00 Injectable Solution heparin 0 No Notes: Memoria sodium, 7-31 porcine l porcine 02:00: heparin Bear 2500 UNT/ML 00 Injectable Solution heparin No Notes: Memoria sodium, 7-31 porcine l porcine 02:00: heparin Luke 2500 UNT/ML 00 Injectable Solution heparin No Notes: Memoria sodium, 7-31 porcine l porcine 02:00: heparin Bear 2500 UNT/ML 00 Injectable Solution heparin No Notes: Memoria sodium, 7-31 porcine l porcine 02:00: heparin Luke 2500 UNT/ML 00 Injectable Solution heparin No Notes: Memoria sodium, 7-31 porcine l porcine 02:00: heparin Bear 2500 UNT/ML 00 Injectable Solution heparin No Notes: Memoria sodium, 7-31 porcine l porcine 02:00: heparin Bear 2500 UNT/ML 00 Injectable Solution gabapentin No [...] Roll in l Human 21:30: palms of Bear 00 hands gently; Do not shake vigorously . (Same as: NovoLOG) "single patient use only" WASTE: F/P - Black; E - Municipal Trash Bin Stable for 28 days at room temperatur e. Expires in days from ____Date Insulin, No Notes: Memoria Aspart, 7-29 Roll in l Human 21:30: palms of Bear 00 hands gently; Do not shake vigorously [...] Roll in l Human 21:30: palms of Bear 00 hands gently; Do not shake vigorously . (Same as: NovoLOG) "single patient use only" WASTE: F/P - Black; E - Municipal Trash Bin Stable for 28 days at room temperatur e. Expires in days from ____Date Insulin, No Notes: Memoria Aspart, 7-29 Roll in l Human 21:30: palms of Bear 00 hands gently; Do not shake vigorously [...] 7-29 (Same as: l 19:44: Apresoline Luke ) Push over 5 minutes Hydralazine No [...] Ativan) Luke 00 Ativan No Notes: Memoria 7- (Same as: l 20:06: Ativan) ivan No Notes: Memoria 7- (Same as: l 20:06: Ativan) ivan No Notes: Memoria 7- (Same as: l 20:06: Ativan) ivan No Notes: Memoria 7- (Same as: l 20:06: Ativan) ivan No Notes: Memoria 7- (Same as: l 20:06: Ativan) ivan No Notes: Memoria 7- (Same as: l 20:06: Ativan) ivan No Notes: Memoria 7- (Same as: l 20:06: Ativan) Acetaminoph No 1 tab, Boy tadeo en 325 MG / 01-12 Route: PO, l Hydrocodone 20:05: Drug Form: Bear Bitartrate 00 TAB, 10 MG Oral Dosing Tablet Weight [[place] 97.983, 10/325] kg, Q4H, Start date: 01/13/16 15:05:00 CDT, Stop date: 02/12/16 16:00:00 CDT Acetaminoph No 1 tab, Boy tadeo en 325 MG / 01-12 Route: PO, l Hydrocodone 20:05: Drug Form: Bear Bitartrate 00 TAB, 10 MG Oral Dosing Tablet Weight [[place] 97.983, 10/325] kg, Q4H, Start date: 01/13/16 15:05:00 CDT, Stop date: 02/12/16 16:00:00 CDT Acetaminoph No 1 tab, Boy tadeo en 325 MG / 01-12 Route: PO, l Hydrocodone 20:05: Drug Form: Bear Bitartrate 00 TAB, 10 MG Oral Dosing Tablet Weight [[place] 97.983, 10/325] kg, Q4H, Start date: 01/13/16 15:05:00 CDT, Stop date: 02/12/16 16:00:00 CDT Acetaminoph No 1 tab, Boy tadeo en 325 MG / 01-12 Route: PO, l Hydrocodone 20:05: Drug Form: Luke Bitartrate 00 TAB, 10 MG Oral Dosing Tablet Weight [[place] 97.983, 10/325] kg, Q4H, Start date: 01/13/16 15:05:00 CDT, Stop date: 02/12/16 16:00:00 CDT Acetaminoph No 1 tab, Boy tadeo en 325 MG / 01-12 Route: PO, l Hydrocodone 20:05: Drug Form: Bear Bitartrate 00 TAB, 10 MG Oral Dosing Tablet Weight [[place] 97.983, 10/325] kg, Q4H, Start date: 01/13/16 15:05:00 CDT, Stop date: 02/12/16 16:00:00 CDT Acetaminoph No 1 tab, Boy tadeo en 325 MG / 01-12 Route: PO, l Hydrocodone 20:05: Drug Form: Bear Bitartrate 00 TAB, 10 MG Oral Dosing Tablet Weight [[place] 97.983, 10/325] kg, Q4H, Start date: 01/13/16 15:05:00 CDT, Stop date: 02/12/16 16:00:00 CDT Acetaminoph No 1 tab, Boy tadeo en 325 MG / 01-12 Route: PO, l Hydrocodone 20:05: Drug Form: Bear Bitartrate 00 TAB, 10 MG Oral Dosing Tablet Weight [[place] 97.983, 10/325] kg, Q4H, Start date: 01/13/16 15:05:00 CDT, Stop date: 02/12/16 16:00:00 CDT Acetaminoph No 1 tab, Boy tadeo en 325 MG / 01-12 Route: PO, l Hydrocodone 20:05: Drug Form: Bear Bitartrate 00 TAB, 10 MG Oral Dosing Tablet Weight [[place] 97.983, 10/325] kg, Q4H, Start date: 01/13/16 15:05:00 CDT, Stop date: 02/12/16 16:00:00 CDT Miralax 2015-0 No Notes: Memoria 01-12 Dissolve l 14:11: in 8 oz of Bear 00 water or juice. (Same as: Miralax) Miralax 2015-0 No Notes: Memoria 7-28 Dissolve l 14:11: in 8 oz of Luke 00 water or juice. (Same as: Miralax) Miralax 2015-0 No Notes: Memoria 7-28 Dissolve l 14:11: in 8 oz of Luke 00 water or juice. (Same as: Miralax) Miralax 2015-0 No Notes: Memoria 7-28 Dissolve l 14:11: in 8 oz of Luke 00 water or juice. (Same as: Miralax) Miralax 2015-0 No Notes: Memoria 7-28 Dissolve l 14:11: in 8 oz of Bear 00 water or juice. (Same as: Miralax) Miralax 2015-0 No Notes: Memoria 7-28 Dissolve l 14:11: in 8 oz of Luke 00 water or juice. (Same as: Miralax) Miralax 0 No Notes: Memoria 7-28 Dissolve l 14:11: in 8 oz of Bear 00 water or juice. (Same as: Miralax) Miralax 2015-0 No Notes: Memoria 7-28 Dissolve l 14:11: in 8 oz of Bear 00 water or juice. (Same as: Miralax) [...] ia 01-11 Route: l 15:44: IVP, Drug Bear 00 form: INJ, ONCE, Dosing Weight 97.983, kg, PRN Anxiety, Priority: NOW, Start date: 01/12/16 10:44:00 CDT Lorazepam 2016-0 No 0.5 mg, Memor ia 7- Route: l 15:44: IVP, Drug Luke 00 form: INJ, ONCE, Dosing Weight 97.983, kg, PRN Anxiety, Priority: NOW, Start date: 01/12/16 10:44:00 CDT Lorazepam 2016-0 No 0.5 mg, Memor ia 7 Route: l 15:44: IVP, Drug Luke 00 form: INJ, ONCE, Dosing Weight 97.983, kg, PRN Anxiety, Priority: NOW, Start date: 01/12/16 10:44:00 CDT Lorazepam 2016-0 No 0.5 mg, Memor ia 7- Route: l 15:44: IVP, Drug Bear 00 form: INJ, ONCE, Dosing Weight 97.983, kg, PRN Anxiety, Priority: NOW, Start date: 01/12/16 10:44:00 CDT Lorazepam 2016-0 No 0.5 mg, Memor ia 7 Route: l 15:44: IVP, Drug Luke 00 [...] 01-11 Route: PO, l 14:00: Drug form: Bear 00 TAB, Daily, Dosing Weight 97.983, kg, Start date: 01/12/16 9:00:00 CDT irbesartan 0 No Notes: Memor ia 7-27 (Same l 14:00: as:Avapro) Luke 00 Furosemide 0 No Notes: Memor ia 20 MG Oral 7-27 (Same as: l Tablet 14:00: Lasix) October cause GI upset. Give with food or milk. glimepiride No Notes: Boy tadeo 7-27 (Same as: l 14:00: Amaryl) Luke 00 Tradjenta 5 No Tradellanta Brian emoria mg 7-27 5 mg l [...] 7-27 Route: PO, l 14:00: Drug form: Bear 00 TAB, Daily, Dosing Weight 97.983, kg, Start date: 01/12/16 9:00:00 CDT irbesartan No Notes: Memor ia 7-27 (Same l 14:00: as:Avapro) Furosemide No Notes: Memor ia 20 MG Oral 7-27 (Same as: l Tablet 14:00: Lasix) May Anitra nn cause GI upset. Give with food or milk. glimepiride No Notes: Boy tadeo 7-27 (Same as: l 14:00: Amaryl) Luke 00 Tradjenta 5 No Tradellanta M emoria mg [...] 7-27 (Same as: l 14:00: Norvasc) Luke 00 Docusate No Notes: Memoria 7-27 (Same as: l 14:00: Colace) Bear (Do Not Crush) Spironolact No Notes: Boy tadeo one 7- (Same As: l 14:00: Aldactone) Tradjenta No [...] as: l 14:00: Amaryl) Tradjenta 5 No Uriela M emoria mg [...] ia 7-27 (Same as: l 14:00: Norvasc) Bear Docusate No Notes: Memoria 7-27 (Same as: [...] Tradjenta 5 No Tradfedericoa M emoria mg -27 5 mg l (Patient's 14:00: (Patient's H ermann own 00 own medicine) medicine), 1 tab, Drug form: MISC, Route: PO, Daily, 01/12/16 9:00:00 CDT, Duration: 30 day, Stop date: 02/10/16 9:00:00 CDT Aspirin 81 No Notes: Do Me moria MG Enteric - not crush l Coated 14:00: or chew. Bear Tablet (Same As: Ecotrin) Amlodipine No Notes: Memor ia - (Same as: l 14:00: Norvasc) Docusate No Notes: Memoria 7-27 (Same as: l 14:00: Colace) Bear (Do Not Crush) Spironolact No Notes: Boy tadeo one - (Same As: l 14:00: Aldactone) Tradjenta No 5 mg, Memoria 7-27 Route: PO, l 14:00: Drug form: Bear TAB, Daily, Dosing Weight 97.983, kg, Start date: 01/12/16 9:00:00 CDT irbesartan No Notes: Memor ia 7-27 (Same l 14:00: as:Avapro) Furosemide No Notes: Memor ia 20 MG Oral 7-27 (Same as: l Tablet 14:00: Lasix) Octobera nn cause GI upset. Give with food [...] Memoria 7-27 (Same as: l 14:00: Colace) Bear (Do Not Crush) Spironolact No Notes: Boy tadeo one 7-27 (Same As: l 14:00: Aldactone) Tradjenta No 5 mg, Memoria 7-27 Route: PO, l 14:00: Drug form: Bear 00 TAB, Daily, Dosing Weight 97.983, kg, Start date: 01/12/16 9:00:00 CDT irbesartan No Notes: Memor ia 7-27 (Same l 14:00: as:Avapro) Furosemide No Notes: Memor ia 20 MG Oral 7-27 (Same as: l Tablet 14:00: Lasix) October nn cause GI upset. Give with food or milk. glimepiride No Notes: Boy tadeo 7-27 (Same as: l 14:00: Amaryl) Luke 00 Tradjenta 5 No Tradfedericoa Brian emoria mg 7-27 5 [...] 7-27 Route: PO, l 14:00: Drug form: Bear 00 TAB, Daily, Dosing Weight 97.983, kg, Start date: 01/12/16 9:00:00 CDT irbesartan No Notes: Memor ia 7-27 (Same l 14:00: as:Avapro) Furosemide No Notes: Memor ia 20 MG Oral 7-27 (Same as: l Tablet 14:00: Lasix) May nn cause GI upset. Give with food or milk. glimepiride No Notes: Boy tadeo 7-27 (Same as: l 14:00: Amaryl) Tradjenta 5 No Tradellanta Brian emoria mg 7-27 5 mg l (Patient's 14:00: (Patient's H ermann own 00 own medicine) medicine), 1 tab, Drug form: MISC, Route: PO, Daily, 01/12/16 9:00:00 CDT, Duration: 30 day, Stop date: 02/10/16 9:00:00 CDT Aspirin 81 No Notes: Do Me moria MG Enteric 7-27 not crush l Coated 14:00: or chew. Bear Tablet 00 (Same As: Ecotrin) Amlodipine No Notes: Memor ia 7-27 (Same as: l 14:00: Norvasc) Luke 00 Docusate No Notes: Memoria 7-27 (Same as: l 14:00: Colace) Luke (Do Not Crush) Spironolact No Notes: Boy tadeo one 7- (Same As: l 14:00: Aldactone) Tradjenta No 5 mg, Memoria 7- Route: PO, l 14:00: Drug form: Bear 00 TAB, Daily, Dosing Weight 97.983, kg, Start date: 01/12/16 9:00:00 CDT irbesartan No Notes: Memor ia 7-27 (Same l 14:00: as:Avapro) Furosemide No Notes: Memor ia 20 MG Oral 7-27 (Same as: l Tablet 14:00: Lasix) May nn cause GI upset. Give with food or milk. glimepiride No Notes: Boy tadeo 7-27 (Same as: l 14:00: Amaryl) Tradjenta 5 No Uriela M emoria mg 7-27 5 mg l (Patient's 14:00: (Patient's H ermann own 00 own medicine) medicine), 1 tab, Drug form: MISC, Route: PO, Daily, 01/12/16 9:00:00 CDT, Duration: 30 day, Stop date: 02/10/16 9:00:00 CDT Aspirin 81 No Notes: Do Me moria MG Enteric 7-27 not crush l Coated 14:00: or chew. Bear Tablet 00 (Same As: Ecotrin) Amlodipine No Notes: Memor ia 7-27 (Same as: l 14:00: Norvasc) Bear Docusate No Notes: Memoria 7-27 (Same as: l 14:00: Colace) Bear (Do Not Crush) Spironolact No Notes: Boy tadeo one 01-11 (Same As: l 14:00: Aldactone) Ativan No Notes: Memoria 7- (Same as: l 13:54: Ativan) Ativan No Notes: Memoria 7- (Same as: l 13:54: Ativan) Ativan No Notes: Memoria 7-27 (Same as: l 13:54: Ativan) Ativan No [...] Flush 13:19: BD Luke 00 Posiflush) Sodium No 25 mL, Memoria Chloride 01-11 Route: IV, l 0.9% IV 13:19: Start date: 01/12/16 8:19:00 CDT, Duration: 30 day, Stop date: 02/11/16 8:18:00 CDT, PRN Line Flush BD Normal No Notes: Memori a Saline 01-11 (Same as: l Flush 13:19: BD Bear 00 Posiflush) Sodium No 25 mL, Memoria Chloride 01-11 Route: IV, l 0.9% IV 13:19: Start date: 01/12/16 8:19:00 CDT, Duration: 30 day, Stop date: 02/11/16 8:18:00 CDT, PRN Line Flush BD Normal 0 No Notes: Memori a Saline 7-27 (Same as: l Flush 13:19: BD Luke Posiflush) Sodium 2015-0 No 25 mL, Memoria Chloride 7- Route: IV, l 0.9% IV 13:19: Start date: 01/12/16 8:19:00 CDT, Duration: 30 day, Stop date: 02/11/16 8:18:00 CDT, PRN Line Flush BD Normal No Notes: Memori a Saline 7-27 (Same as: l Flush 13:19: BD Luke 00 Posiflush) Sodium 2015-0 No 25 mL, Memoria Chloride 7-27 Route: IV, l 0.9% IV 13:19: date: 01/12/16 8:19:00 CDT, Duration: 30 day, Stop date: 02/11/16 8:18:00 CDT, PRN Line Flush BD Normal No Notes: Memori a Saline 7-27 (Same as: l Flush 13:19: BD Bear 00 Posiflush) Sodium 2015-0 No 25 mL, Memoria Chloride 7- Route: IV, l 0.9% IV 13:19: date: 01/12/16 8:19:00 CDT, Duration: 30 day, Stop date: 02/11/16 8:18:00 CDT, PRN Line Flush BD Normal 0 No Notes: Memori a Saline 7-27 (Same as: l Flush 13:19: BD Bear Posiflush) Sodium 2015-0 No 25 mL, Memoria Chloride 7-27 Route: IV, l 0.9% IV 13:19: Start date: 01/12/16 8:19:00 CDT, Duration: 30 day, Stop date: 02/11/16 8:18:00 CDT, PRN Line Flush BD Normal 0 No Notes: Memori a Saline 7-27 (Same as: l Flush 13:19: BD Bear Posiflush) Sodium No 25 mL, Memoria Chloride 01-11 Route: IV, l 0.9% IV 13:19: Start Bear 00 date: 01/12/16 8:19:00 CDT, Duration: 30 day, Stop date: 02/11/16 8:18:00 CDT, PRN Line Flush BD Normal No Notes: Memori a Saline 01-11 (Same as: l Flush 13:19: BD Luke 00 Posiflush) Insulin, No Notes: Memoria Aspart, 01-11 [...] 22:37:00 CDT Insulin, No Notes: Memoria Aspart, - Roll in l Human 03:38: palms of Luke 00 hands gently; Do not shake vigorously . (Same as: NovoLOG) "single patient use only" WASTE: F/P - Black; E - Municipal Trash Bin Stable for 28 days at room temperatur e. Expires in days from ____Date Dextrose 2016-0 No 12.5 gm, Memor ia 50% Syringe 7-27 25 mL, l 03:38: Route: Bear 00 IVP, Drug Form: INJ, Dosing Weight [...] Roll in l Human 03:38: palms of Bear 00 hands gently; Do not shake vigorously . (Same as: NovoLOG) "single patient use only" WASTE: F/P - Black; E - iContact Trash Bin Stable for 28 days at [...] Roll in l Human 03:38: palms of Bear 00 hands gently; Do not shake vigorously . (Same as: NovoLOG) "single patient use only" WASTE: F/P - Black; E - Municipal Trash Bin Stable for 28 days at room temperatur e. Expires in days from ____Date Dextrose 2016-0 No 12.5 gm, Memor ia 50% Syringe 7-27 25 mL, l 03:38: Route: Bear 00 IVP, Drug Form: INJ, Dosing Weight [...] Roll in l Human 03:38: palms of Bear 00 hands gently; Do not shake vigorously [...] 22:37:00 CDT Glucagon No 1 mg, Memoria 7-27 Route: IM, l 03:38: Drug form: Luke 00 PDR/INJ, PRN, Dosing Weight 97.983, kg, PRN Blood Glucose Results, Start date: 01/11/16 22:38:00 CDT, Duration: 30 day, Stop date: 02/10/16 22:37:00 CDT Insulin, 2015-0 No Notes: Memoria Aspart, 7-27 Roll in l Human 03:38: palms of Bear 00 hands gently; Do not shake vigorously [...] 01-11 Route: IM, l 03:38: Drug form: Bear 00 PDR/INJ, PRN, Dosing Weight 97.983, kg, PRN Blood Glucose Results, Start date: 01/11/16 22:38:00 CDT, Duration: 30 day, Stop date: 02/10/16 22:37:00 CDT Insulin, No Notes: Memoria Aspart, 01-11 Roll in l Human 03:38: palms of Bear 00 hands gently; Do not shake vigorously . (Same as: NovoLOG) "single patient use only" WASTE: F/P - Black; E - Municipal Trash Bin Stable for 28 days at room temperatur e. Expires in days from ____Date Dextrose No 12.5 gm, Memor ia 50% Syringe 01-11 25 mL, l 03:38: Route: Bear IVP, Drug Form: INJ, Dosing Weight 97.983, kg, PRN, PRN Blood Glucose Results, Start date: 01/11/16 22:38:00 CDT, Duration: 30 day, Stop date: 02/10/16 22:37:00 CDT Glucagon No 1 mg, Memoria 01-11 Route: IM, l 03:38: Drug form: Bear 00 PDR/INJ, PRN, Dosing Weight 97.983, kg, PRN Blood Glucose Results, Start date: 01/11/16 22:38:00 CDT, Duration: 30 day, Stop date: 02/10/16 22:37:00 CDT Lipitor No Notes: Memoria 7-27 (Same As: l 02:38: Lipitor) Luke Lipitor No Notes: Memoria 7-27 (Same As: l 02:38: Lipitor) Luke Lipitor No Notes: Memoria 7-27 (Same As: l 02:38: Lipitor) Bear Lipitor No Notes: Memoria 7-27 (Same As: l 02:38: Lipitor) Bear Lipitor No Notes: Memoria 7-27 (Same As: l 02:38: Lipitor) Luke 00 Lipitor No Notes: Memoria 7- (Same As: l 02:38: Lipitor) Luke Lipitor No Notes: Memoria 7 (Same As: l 02:38: Lipitor) Bear Lipitor No Notes: Memoria 7 (Same As: l 02:38: Lipitor) Luke Lantus No Notes: Memoria 7 Same as l 02:00: Lantus Luke 00 Solostar PEN Do not hold insulin without contacting prescriber "single patient use only" WASTE: F/P - Black; E - Municipal Trash Bin Stable for 28 days at room temperatur e. Expires in days from ____Date carvedilol No Notes: Memor ia 7 Give with l 02:00: food. Bear 00 (Same As: Coreg) Crestor No Route: [...] ia 727 Give with l 02:00: food. Bear 00 (Same As: Coreg) Crestor No Route: [...] 02:00: food. Luke 00 (Same As: Coreg) [facility] No Route: PO, Boy tadeo 7-27 Drug form: l 02:00: TAB, Luke 00 Bedtime, Dosing Weight 97.983, kg, Start date: 01/11/16 21:00:00 CDT, Duration: 30 day, Stop date: 02/09/16 21:00:00 CDT Lantus No Notes: Memoria 7- Same as l 02:00: Lantus Bear 00 Solostar PEN Do not hold insulin without contacting prescriber "single patient use only" WASTE: F/P - Black; E - Municipal Trash Bin Stable for 28 days at room temperatur e. Expires in days from ____Date carvedctol No Notes: Memor ia 7-27 Give with l 02:00: food. Luke 00 (Same As: Coreg) [facility] No Route: PO, Boy tadeo 7-27 [...] tadeo 7-27 Drug form: l 02:00: TAB, Bear 00 Bedtime, Dosing Weight 97.983, kg, Start [...] l 02:00: food. Luke (Same As: Coreg) [facility] No Route: PO, Boy tadeo 7-27 [...] ia 7-27 Give with l 02:00: food. Bear (Same As: Coreg) [facility] No Route: PO, Boy tadeo 7-27 Drug form: l 02:00: TAB, Bear 00 Bedtime, Dosing Weight 97.983, kg, Start date: 01/11/16 21:00:00 CDT, Duration: 30 day, Stop date: 02/09/16 21:00:00 CDT Lantus No Notes: Memoria 01-11 Same as l 02:00: Lantus Bear Solostar PEN Do not hold insulin without contacting prescriber "single patient use only" WASTE: F/P - Black; E - Municipal Trash Bin Stable for 28 days at room temperatur e. Expires in days from ____Date carvedilol No Notes: Memor ia 01-11 Give with l 02:00: food. Luke (Same As: Coreg) Crestor No Route: PO, Boy tadeo 01-11 Drug form: l 02:00: TAB, Bear 00 Bedtime, Dosing Weight 97.983, kg, Start date: 01/11/16 21:00:00 CDT, Duration: 30 day, Stop date: 02/09/16 21:00:00 CDT Acetaminoph No Notes: Do M emoria en 325 MG / 01-10 not exceed l Hydrocodone 23:00: 4gm/day of Bear Bitartrate 00 acetaminop 10 MG Oral hen. (Same Tablet as: [place] [[place] 325/10) 10/325] Enoxaparin No Notes: Memor ia 01-10 (Same as: l 23:00: Lovenox) Bear Acetaminoph No Notes: Do M emoria en 325 MG / 01-10 not exceed l Hydrocodone 23:00: 4gm/day of Luke Bitartrate 00 acetaminop 10 MG Oral hen. (Same Tablet as: [place] [[place] 325/10) 10/325] Enoxaparin No Notes: Memor ia 01-10 (Same as: l 23:00: Lovenox) Bear Acetaminoph No Notes: Do M emoria en 325 MG / 01-10 not exceed l Hydrocodone 23:00: 4gm/day of Bear Bitartrate 00 acetaminop 10 MG Oral hen. (Same Tablet as: [place] [[place] 325/10) 10/325] Enoxaparin No Notes: Memor ia 01-10 (Same as: l 23:00: Lovenox) Bear Acetaminoph No Notes: Do M emoria en 325 MG / 01-10 not exceed l Hydrocodone 23:00: 4gm/day of Bear Bitartrate 00 acetaminop 10 MG Oral hen. (Same Tablet as: [place] [[place] 325/10) 10/325] Enoxaparin No Notes: Memor ia 01-10 (Same as: l 23:00: Lovenox) Luke Acetaminoph No Notes: Do M emoria en 325 MG / 01-10 not exceed l Hydrocodone 23:00: 4gm/day of Luke Bitartrate 00 acetaminop 10 MG Oral hen. (Same Tablet as: [place] [[place] 325/10) 10/325] Enoxaparin No Notes: Memor ia 01-10 (Same as: l 23:00: Lovenox) Acetaminoph No Notes: Do M emoria en 325 MG / 01-10 not exceed l Hydrocodone 23:00: 4gm/day of Bear Bitartrate 00 acetaminop 10 MG Oral hen. (Same Tablet as: [place] [[place] 325/10) 10/325] Enoxaparin No Notes: Memor ia 01-10 (Same as: l 23:00: Lovenox) Acetaminoph No Notes: Do M emoria en 325 MG / 01-10 not exceed l Hydrocodone 23:00: 4gm/day of Bear Bitartrate 00 acetaminop 10 MG Oral hen. (Same Tablet as: [place] [[place] 325/10) 10/325] Enoxaparin No Notes: Memor ia 01-10 (Same as: l 23:00: Lovenox) Luke Acetaminoph No Notes: Do M emoria en 325 MG / 01-10 not exceed l Hydrocodone 23:00: 4gm/day of Bear Bitartrate 00 acetaminop 10 MG Oral hen. (Same Tablet as: [place] [[place] 325/10) 10325] Enoxaparin No Notes: Memor ia [...] MG 22:56: Catapres) Her kowalski Oral Tablet Saline No Notes: Memoria Flush 0.9% 01-10 (Same as: l 22:53: BD Posiflush) Morphine No Notes: Memoria 7-26 (Same l 22:53: as:MORPhin e Sulfate) Ondansetron No Notes: Boy tadeo - (Same as: l 22:53: Zofran) MEDICATION WASTE Product Size: 4 mg Product Wasted: ___ mg Acetaminoph No 100.4 F, M emoroba en - Start l 22:53: date: 01/11/16 17:53:00 CDT, Duration: 30 day, Stop date: 02/10/16 17:52:00 CDT Sodium 2016 No 1,000 mL, Memori a Chloride 7- Rate: 45 l 0.154 22:53: ml/hr, Bear MEQ/ML 00 Infuse Injectable over: 22.2 Solution hr, Route: IV, Dosing Weight 97.983 kg, Total Volume: 1,000, Start date: 01/11/16 17:53:00 CDT, Duration: 30 day, Stop date: 02/10/16 17:52:00 CDT Saline No Notes: Memoria Flush 0.9% 7-26 (Same as: l 22:53: BD Luke Posiflush) Morphine No Notes: Memoria 7-26 (Same l 22:53: as:MORPhin Bear 00 e Sulfate) Ondansetron No Notes: Boy tadeo 7-26 (Same as: l 22:53: Zofran) Bear 00 MEDICATION WASTE Product Size: 4 mg Product Wasted: ___ mg Acetaminoph No 100.4 F, M emoria en 01-10 Start l 22:53: date: Bear 00 01/11/16 17:53:00 CDT, Duration: 30 day, [...] 0.9% 7-26 (Same as: l 22:53: BD Bear 00 Posiflush) Morphine No Notes: Memoria 7-26 (Same l 22:53: as:MORPhin Bear 00 e Sulfate) Ondansetron No Notes: Boy tadeo 7-26 (Same as: l 22:53: Zofran) Bear 00 MEDICATION WASTE Product Size: 4 mg [...] 0.9% 01-10 (Same as: l 22:53: BD Bear 00 Posiflush) Morphine No Notes: Memoria - (Same l 22:53: as:MORPhin Luke 00 e Sulfate) Ondansetron No Notes: Boy tadeo 01-10 (Same as: l 22:53: Zofran) Luke 00 MEDICATION WASTE Product Size: 4 mg Product Wasted: ___ mg Acetaminoph No 100.4 Brian Quiles en 01-10 Start l 22:53: date: 01/11/16 17:53:00 CDT, Duration: 30 day, Stop date: 02/10/16 17:52:00 CDT Sodium No 1,000 mL, Memori a Chloride - Rate: 45 l 0.154 22:53: ml/hr, Bear MEQ/ML 00 Infuse Injectable over: 22.2 Solution [...] tadeo 7-26 (Same as: l 22:53: Zofran) Bear 00 MEDICATION WASTE Product Size: 4 mg [...] Notes: Memoria 7-26 (Same l 22:53: as:MORPhin Bear 00 e Sulfate) Ondansetron No Notes: Boy tadeo 7-26 (Same as: l 22:53: Zofran) Bear 00 MEDICATION WASTE Product Size: 4 mg Product Wasted: ___ mg Acetaminoph No 100.4 F, M kristine en 01-10 Start l 22:53: date: 01/11/16 17:53:00 CDT, Duration: 30 day, Stop date: 02/10/16 17:52:00 CDT Sodium No 1,000 mL, Memori a Chloride 01-10 Rate: 45 l 0.154 22:53: ml/hr, Bear MEQ/ML 00 Infuse Injectable over: 22.2 Solution hr, Route: IV, Dosing Weight 97.983 kg, Total Volume: 1,000, Start date: 01/11/16 17:53:00 CDT, Duration: 30 day, Stop date: 02/10/16 17:52:00 CDT Saline No Notes: Memoria Flush 0.9% - (Same as: l 22:53: BD Luke 00 Posiflush) Morphine No Notes: Memoria 7- (Same l 22:53: as:MORPhin Luke 00 e Sulfate) Ondansetron No Notes: Boy tadeo 01-10 (Same as: l 22:53: Zofran) Bear 00 MEDICATION WASTE Product Size: 4 mg Product Wasted: ___ mg Acetaminoph No 100.4 F, M emoria en 01-10 Start l 22:53: date: Luke 01/11/16 17:53:00 CDT, Duration: 30 day, Stop date: 02/10/16 17:52:00 CDT Sodium No 1,000 mL, Memori a Chloride - Rate: 45 l 0.154 22:53: ml/hr, Bear MEQ/ML 00 Infuse Injectable over: 22.2 Solution hr, Route: IV, Dosing Weight 97.983 kg, Total Volume: 1,000, Start date: 01/11/16 17:53:00 CDT, Duration: 30 day, Stop date: 02/10/16 17:52:00 CDT Sodium No 1,000 mL, Memori a Chloride - Rate: 45 l 0.154 22:53: ml/hr, Bear MEQ/ML 00 Infuse Injectable over: 22.2 Solution hr, Route: IV, Dosing Weight 97.983 kg, Total Volume: 1,000, Start date: 01/11/16 17:53:00 CDT, Duration: 30 day, Stop date: 02/10/16 17:52:00 CDT Saline No Notes: Memoria Flush 0.9% 7-26 (Same as: l 22:53: BD Bear 00 Posiflush) Morphine No Notes: Memoria 7-26 (Same l 22:53: as:MORPhin Luke 00 e Sulfate) Ondansetron No Notes: Boy tadeo 01-10 (Same as: l 22:53: Zofran) MEDICATION WASTE Product Size: 4 mg Product Wasted: ___ mg Acetaminoph No 100.4 F, M emoria en 01-10 Start l 22:53: date: 01/11/16 17:53:00 CDT, Duration: 30 day, Stop date: 02/10/16 17:52:00 CDT irbesartan 2015-0 Yes 300 mg = 1 M emoria 300 mg oral 7-26 tab, PO, l tablet 22:27: Daily, # Luke 00 30 tab, 0 Refill(s) irbesartan 2015-0 Yes 300 mg = 1 M emoria 300 mg oral 7-26 tab, PO, l tablet 22:27: Daily, # Bear 00 30 tab, 0 Refill(s) irbesartan 2015-0 Yes 300 mg = 1 M emoria 300 mg oral 7-26 tab, PO, l tablet 22:27: Daily, # Luke 00 30 tab, 0 Refill(s) irbesartan 2016-0 Yes 300 mg = 1 M emoria 300 mg oral 7-26 tab, PO, l tablet 22:27: Daily, # Luke 00 30 tab, 0 Refill(s) irbesartan 2016-0 Yes 300 mg = 1 M emoria 300 mg oral 7-26 tab, PO, l tablet 22:27: Daily, # Bear 00 30 tab, 0 Refill(s) irbesartan 2015-0 Yes 300 mg = 1 M emoria 300 mg oral 7-26 tab, PO, l tablet 22:27: Daily, # Luke 00 30 tab, 0 Refill(s) irbesartan 2016-0 Yes 300 mg = 1 M emoria 300 mg oral 7-26 tab, PO, l tablet 22:27: Daily, # Luke 00 30 tab, 0 Refill(s) irbesartan 2015-0 Yes 300 mg = 1 M emoria 300 mg oral 7-26 tab, PO, l tablet 22:27: Daily, # Bear 00 30 tab, 0 Refill(s) Co Q-10 100 2016-0 Yes 200 mg = 2 Memoria mg oral 7-26 cap, PO, l capsule 22:21: Daily, 0 Richard n 00 Refill(s) Aspirin 81 Yes 81 mg = 1 Me moria MG Enteric 7-26 tab, PO, l Coated 22:21: Daily, # Bear Tablet 00 90 tab, 3 Refill(s) Vitamin D3 2016 Yes 2,000 Memori a 7-26 IntlUnit, l 22:21: PO, Daily, Bear 00 0 Refill(s) Rosuvastati Yes See Memori [...] a 7-26 IntlUnit, l 22:21: PO, Daily, Bear 00 0 Refill(s) Aspirin 81 Yes 81 [...] tab, PO, l Tablet 22:21: Daily, # Bear 00 30 tab, 0 Refill(s) Vitamin D3 [...] tab, PO, l Coated 22:21: Daily, # Bear Tablet 00 90 tab, 3 Refill(s) Vitamin [...] tab, PO, l Coated 22:21: Daily, # Bear Tablet 00 90 tab, 3 Refill(s) Vitamin [...] a 7-26 IntlUnit, l 22:21: PO, Daily, Bear 00 0 Refill(s) Rosuvastati Yes See Memori [...] Richard n Capsule 00 Refill(s) [Colace] Furosemide 2016-0 Yes 20 mg = 1 Me moria 20 MG Oral 7-26 tab, PO, l Tablet 22:21: Daily, # Luke 00 30 tab, 0 Refill(s) Linagliptin 2016-0 Yes 5 mg = [...] [Tradjenta] 00 30 tab, 3 Refill(s) Acetaminoph 2016-0 Yes 2 tabs, Mem oria en 325 MG / 7-26 PO, Q6H, 0 l Hydrocodone 22:01: Refill(s) H ermann Bitartrate 00 10 MG Oral Tablet [[place] 10/325] Amlodipine Yes 10 mg, PO, M emoria 01-10 Daily, 0 l 22:01: Refill(s) Luke 00 Acetaminoph Yes 2 tabs, Mem oria en 325 MG / 01-10 PO, Q6H, 0 l Hydrocodone 22:01: Refill(s) H ermann Bitartrate 00 10 MG Oral Tablet [[place] 10/325] Amlodipine Yes 10 mg, PO, M emoria 01-10 Daily, 0 l 22:01: Refill(s) Bear 00 Acetaminoph Yes 2 tabs, Mem oria en 325 MG / 01-10 PO, Q6H, 0 l Hydrocodone 22:01: Refill(s) H ermann Bitartrate 00 10 MG Oral Tablet [[place] 10/325] Amlodipine Yes 10 mg, PO, M emoria 01-10 Daily, 0 l 22:01: Refill(s) Bear 00 Acetaminoph Yes 2 tabs, Mem oria en 325 MG / 01-10 PO, Q6H, 0 l Hydrocodone 22:01: Refill(s) H ermann Bitartrate 00 10 MG Oral Tablet [[place] 10/325] Amlodipine Yes 10 mg, PO, M emoria 01-10 Daily, 0 l 22:01: Refill(s) Bear 00 Acetaminoph Yes 2 tabs, Mem oria en 325 MG / 01-10 PO, Q6H, 0 l Hydrocodone 22:01: Refill(s) H ermann Bitartrate 00 10 MG Oral Tablet [[place] 10/325] Amlodipine Yes 10 mg, PO, M emoria 01-10 Daily, 0 l 22:01: Refill(s) Bear 00 Acetaminoph Yes 2 tabs, Mem oria en 325 MG / 01-10 PO, Q6H, 0 l Hydrocodone 22:01: Refill(s) H ermann Bitartrate 00 10 MG Oral Tablet [[place] 10/325] Amlodipine Yes 10 mg, PO, M emoria 01-10 Daily, 0 l 22:01: Refill(s) Bear 00 Acetaminoph Yes 2 tabs, Mem oria en 325 MG / 01-10 PO, Q6H, 0 l Hydrocodone 22:01: Refill(s) H ermann Bitartrate 00 10 MG Oral Tablet [[place] 10/325] Amlodipine Yes 10 mg, PO, M emoria 01-10 Daily, 0 l 22:01: Refill(s) Bear 00 Acetaminoph Yes 2 tabs, Mem oria en 325 MG / 01-10 PO, Q6H, 0 l Hydrocodone 22:01: Refill(s) H ermann Bitartrate 00 10 MG Oral Tablet [[place] 10/325] Amlodipine Yes 10 mg, PO, M emoria 01-10 Daily, 0 l 22:01: Refill(s) Luke 00 aspirin RX aspirin RX 2012-06 No aspirin RX Arlin by other MD by other MD 0-30 by other Orth[facility] 00:00: MD [facility] aspirin RX aspirin RX 2012-06 No aspirin RX Alrin by other MD by other MD 0-30 [...] Richard n 03 tab, Substituti on Allowed [place] Yes Rigoberto 1-2 tab, Memoria 10/325 oral 4-21 Skyler PO, Q4-6H, l tablet 13:43: Meiner PRN, 90 Richard n 05 tab, Pain, Substituti on Allowed, Maintenanc e [place] Yes Rigoberto 1-2 tab, Memoria 10/325 oral 4-21 [place] PO, Q4-6H, l tablet 13:43: Meiner PRN, 90 Richard n 05 tab, Pain, Substituti on Allowed, Maintenanc e [place] Yes Rigoberto 1-2 tab, Memoria 10/325 oral 4-21 Skyler PO, Q4-6H, l tablet 13:43: Meiner PRN, 90 Richard n 05 tab, Pain, Substituti on Allowed, Maintenanc e [place] Yes Rigoberto 1-2 tab, Memoria 10/325 oral 4-21 Skyler PO, Q4-6H, l tablet 13:43: Meiner PRN, 90 Richard n 05 tab, Pain, Substituti on Allowed, Maintenanc e [place] Yes Rigoberto 1-2 tab, Memoria 10/325 oral 4-21 Skyler PO, Q4-6H, l tablet 13:43: Meiner PRN, 90 Richard n 05 tab, Pain, Substituti on Allowed, Maintenanc e [place] Yes Rigoberto 1-2 tab, Memoria 10/325 oral 4-21 Skyler PO, Q4-6H, l tablet 13:43: Meiner PRN, 90 Richard n 05 tab, Pain, Substituti on Allowed, Maintenanc e [place] Yes Rigoberto 1-2 tab, Memoria 10/325 oral 4-21 Skyler PO, Q4-6H, l tablet 13:43: Meiner PRN, 90 Richard n 05 tab, Pain, Substituti on Allowed, Maintenanc e [place] Yes Rigoberto 1-2 tab, Memoria 10/325 oral [...] 10 mg, 1 Me moria mg oral - Skyler tab, PO, l tablet 13:42: Meiner TID, PRN, Herm robert 53 30 tab, for spasm, Substituti on Allowed, TAB Flexeril 10 Yes Rigoberto 10 mg, 1 Me moria mg oral 10-06 Skyler tab, PO, l tablet 13:42: Meiner TID, PRN, Herm robert 53 30 tab, for spasm, Substituti on Allowed, TAB Flexeril 10 Yes Rigoberto 10 mg, 1 Me moria mg oral 10-06 Skyler tab, PO, l tablet 13:42: Meiner TID, PRN, Herm robert 53 30 tab, for spasm, Substituti on Allowed, TAB Medrol 2012-0 Yes Rigoberto As Memoria Dosepak 4 - Skyler directed l mg Tablet 13:42: Meiner on package Bear 51 instructio ns, PO, Daily, Take with or without food, 1 Pack, Substituti on AllowedTak e with or without food Medrol 2012-0 Yes Rigoberto As Memoria Dosepak 4 - Skyler directed l mg Tablet 13:42: Meiner on package Bear 51 instructio ns, PO, Daily, Take with or without food, 1 Pack, Substituti on AllowedTak e with or without food Medrol 2012-0 Yes Rigoberto As Memoria Dosepak 4 - Skyler directed l mg Tablet 13:42: Meiner on package Bear 51 instructio ns, PO, Daily, Take with or without food, 1 Pack, Substituti on AllowedTak e with or without food Medrol 2012-0 Yes Rigoberto As Memoria Dosepak 4 - Skyler directed l mg Tablet 13:42: Meiner on package Luke 51 instructio ns, PO, Daily, Take with or without food, 1 Pack, Substituti on AllowedTak e with or without food Medrol 2012-0 Yes Rigoberto As Memoria Dosepak 4 - Skyler directed l mg Tablet 13:42: Meiner on package Bear 51 instructio ns, PO, Daily, Take with [...] 2012- Yes Rigoberto As Memoria Dosepak 4 -21 Skyler directed l mg Tablet 13:42: Meiner on package Bear 51 instructio ns, PO, Daily, Take with or without food, 1 Pack, Substituti on AllowedTak e with or without food Medrol 2012- Yes Rigoberto As Memoria Dosepak 4 4-21 Skyler directed l mg Tablet 13:42: Meiner on package Bear 51 instructio ns, PO, Daily, Take with [...] 4-20 Young 0.1 mL, l 23:46: Route: Bear 00 SUB-Q, Drug form: INJ, ONCE, Dosing [...] 4-20 Young 0.1 mL, l 23:46: Route: Bear 00 SUB-Q, Drug form: INJ, ONCE, Dosing [...] 4-20 Young 0.1 mL, l 23:46: Route: Bear 00 SUB-Q, Drug form: INJ, ONCE, Dosing Weight 91.818, kg, Start date: 10/05/12 18:46:00, Stop date: 10/05/12 18:46:00 Lantus 2012-0 No Estela 10 unit, Memor ia 4-20 Young 0.1 mL, l 23:46: Route: Bear 00 SUB-Q, Drug form: INJ, ONCE, Dosing [...] Young Route: IM, l 22:13: Drug form: Lkue 00 PDR/INJ, PRN, Dosing Weight 91.818, kg, PRN Blood Glucose Results, Start date: 10/05/12 17:13:00, Duration: 30 day, Stop date: 11/04/12 17:12:00 Dextrose 2012-0 No Estela 12.5 gm, Mem oria 50% Syringe 4-20 Young 25 mL, l 22:13: Route: Bear 00 IVP, Drug Form: INJ, Dosing Weight [...] Young Route: IM, l 22:13: Drug form: Bear 00 PDR/INJ, PRN, Dosing Weight 91.818, kg, [...] Young Route: IM, l 22:13: Drug form: Bear 00 PDR/INJ, PRN, Dosing Weight 91.818, kg, [...] Young Route: IM, l 22:13: Drug form: Bear 00 PDR/INJ, PRN, Dosing Weight 91.818, kg, [...] 4-20 Young 0.03 mL, l 22:13: Route: Bear 00 SUB-Q, Drug form: SOLN, TID-Before Meals, Dosing Weight 91.818, kg, PRN Blood Glucose Results, Start date: 10/05/12 17:13:00, Duration: 30 day, Stop date: 11/04/12 17:12:00 glucagon 2012-0 No Estela 1 mg, Memori a 4-20 Young Route: IM, l 22:13: Drug form: Bear 00 PDR/INJ, PRN, Dosing Weight 91.818, kg, PRN Blood Glucose Results, Start date: 10/05/12 17:13:00, Duration: 30 day, Stop date: 11/04/12 17:12:00 Dextrose 2012-0 No Estela 12.5 gm, Mem oria 50% Syringe 4-20 Young 25 mL, l 22:13: Route: Bear 00 IVP, Drug Form: INJ, Dosing Weight 91.818, kg, PRN, PRN Blood Glucose Results, Start date: 10/05/12 17:13:00, Duration: 30 day, Stop date: 11/04/12 17:12:00 insulin 2012-0 No Estela 3 unit, Memor ia aspart 4-20 Young 0.03 mL, l 22:13: Route: Bear 00 SUB-Q, Drug form: SOLN, TID-Before Meals, [...] 4-20 Young 0.03 mL, l 22:13: Route: Bear 00 SUB-Q, Drug form: SOLN, TID-Before Meals, [...] 4-20 Young 25 mL, l 22:13: Route: Bear 00 IVP, Drug Form: INJ, Dosing Weight 91.818, kg, PRN, PRN Blood Glucose Results, Start date: 10/05/12 17:13:00, Duration: 30 day, Stop date: 11/04/12 17:12:00 insulin 2012-0 No Estela 3 unit, Memor ia aspart 4-20 Young 0.03 mL, l 22:13: Route: Bear 00 SUB-Q, Drug form: SOLN, TID-Before Meals, [...] 4-20 Young 0.05 mL, l 16:30: Route: Bear 00 SUB-Q, Drug form: SOLN, TID-Before Meals, Dosing Weight 91.818, kg, Start date: 10/05/12 11:30:00, Duration: 30 day, Stop date: 11/04/12 7:30:00 insulin 2012-0 No Estela 5 unit, Memor ia aspart 4-20 Young 0.05 mL, l 16:30: Route: Bear 00 SUB-Q, Drug form: SOLN, TID-Before Meals, [...] 4-20 Young 0.05 mL, l 16:30: Route: Bear 00 SUB-Q, Drug form: SOLN, TID-Before Meals, [...] 30 day, Stop date: 11/04/12 7:30:00 Ativan No Rigoberto 1 mg, 1 Memoria 4-20 Skyler tab, l 15:38: Meiner Route: PO, Anitra nn 00 Drug form: TAB, Bedtime, Dosing Weight 91.818, kg, PRN Insomnia, Start date: 10/05/12 10:38:00, Duration: 30 day, Stop date: 11/04/12 10:37:00 Ativan No Rigoberto 1 mg, 1 Memoria 4-20 Skyler tab, l 15:38: Meiner Route: PO, Anitra nn 00 Drug form: TAB, Bedtime, Dosing Weight 91.818, kg, PRN Insomnia, Start date: 10/05/12 10:38:00, Duration: 30 day, Stop date: 11/04/12 10:37:00 Ativan No Rigoberto 1 mg, 1 Memoria 4-20 Skyler tab, l 15:38: Meiner Route: PO, Anitra nn 00 Drug form: TAB, Bedtime, Dosing Weight 91.818, kg, PRN Insomnia, Start date: 10/05/12 10:38:00, Duration: 30 day, Stop date: 11/04/12 10:37:00 Ativan 0 No Rigoberto 1 mg, 1 Memoria 4-20 Skyler tab, l 15:38: Meiner Route: PO, Anitra nn 00 Drug form: TAB, Bedtime, Dosing Weight 91.818, kg, PRN Insomnia, Start date: 10/05/12 10:38:00, Duration: 30 day, Stop date: 11/04/12 10:37:00 Ativan 0 No Rigoberto 1 mg, 1 Memoria 4-20 Skyler tab, l 15:38: Meiner Route: PO, Anitra nn 00 Drug form: TAB, Bedtime, Dosing Weight 91.818, kg, PRN Insomnia, Start date: 10/05/12 10:38:00, Duration: 30 day, Stop date: 11/04/12 10:37:00 Ativan 2013-0 No Rigoberto 1 mg, 1 Memoria 4-20 [...] 4-20 Dionisio tab, l 09:41: Route: PO, Bear 00 Drug form: TAB, ONCE, Dosing Weight [...] 4-20 Dionisio tab, l 09:41: Route: PO, Bear 00 Drug form: TAB, ONCE, Dosing Weight [...] Deniz unit, 1 l 05:00: mL, Route: Bear 00 SUB-Q, Drug form: INJ, Q8H, Dosing [...] Deniz unit, 1 l 05:00: mL, Route: Bear 00 SUB-Q, Drug form: INJ, Q8H, Dosing [...] Deniz unit, 1 l 05:00: mL, Route: Bear 00 SUB-Q, Drug form: INJ, Q8H, Dosing Weight 91.818, kg, Start date: 10/05/12 0:00:00, Duration: 30 day, Stop date: 11/03/12 16:00:00 dexamethaso 2012-0 No Dorothy 4 mg, 1 M emoria ne 4-20 Dionisio mL, Route: l 05:00: IVP, Drug Luke 00 form: INJ, Q6H, Dosing Weight 91.818, kg, Start date: 10/05/12 0:00:00, Duration: 30 day, Stop date: 11/03/12 18:00:00 heparin 2012-0 No [facility] 5,000 Mem oria 4-20 n Deniz unit, 1 l 05:00: mL, Route: Luke 00 SUB-Q, Drug form: INJ, Q8H, Dosing Weight 91.818, kg, Start date: 10/05/12 0:00:00, Duration: 30 day, Stop date: 11/03/12 16:00:00 dexamethaso 2012-0 No Dorothy 4 mg, 1 M emoria ne 4-20 Dionisio mL, Route: l 05:00: IVP, Drug Bear 00 form: INJ, Q6H, Dosing Weight 91.818, kg, Start date: 10/05/12 0:00:00, Duration: 30 day, Stop date: 11/03/12 18:00:00 heparin 2012-0 No [facility] 5,000 Mem oria 4-20 n Deniz unit, 1 l 05:00: mL, Route: Bear 00 SUB-Q, Drug form: INJ, Q8H, Dosing Weight 91.818, kg, Start date: 10/05/12 0:00:00, Duration: 30 day, Stop date: 11/03/12 16:00:00 dexamethaso 2012-0 No Dorothy 4 mg, 1 M emoria ne 4-20 Dionisio mL, Route: l 05:00: IVP, Drug Bear 00 form: INJ, Q6H, Dosing Weight 91.818, [...] Dionisio mL, Route: l 05:00: IVP, Drug Bear 00 form: INJ, Q6H, Dosing Weight 91.818, kg, Start date: 10/05/12 0:00:00, Duration: 30 day, Stop date: 11/03/12 18:00:00 heparin 2012-0 No [facility] 5,000 Mem oria 4-20 n Deniz unit, 1 l 05:00: mL, Route: Bear 00 SUB-Q, Drug form: INJ, Q8H, Dosing [...] 4-20 Dionisio tab, l 02:00: Route: PO, Bear 00 Drug form: TAB, BID, Dosing Weight 91.818, kg, Start date: 10/04/12 21:00:00, Duration: 30 day, Stop date: 11/03/12 9:00:00 famotidine 2013-0 No Dorothy 20 mg, 1 M emoria 4-20 Dionisio tab, l 02:00: Route: PO, Bear 00 Drug form: TAB, BID, Dosing Weight [...] 4-20 Dionisio tab, l 02:00: Route: PO, Bear 00 Drug form: TAB, BID, Dosing Weight [...] 4-20 Young 0.12 mL, l 00:54: Route: Bear 00 SUB-Q, Drug form: SOLN, TID-Before Meals, [...] Route: l 00:54: Grazyna IVP, Drug Luke Law Form: INJ, Dosing Weight 91.818, kg, [...] mL, Route: l 00:54: Grazyna IVP, Drug Bear 00 Law Form: INJ, Dosing Weight 91.818, kg, PRN, PRN Blood Glucose Results, Start date: 10/04/12 19:54:00, Duration: 30 day, Stop date: 11/03/12 19:53:00 Insulin 2012-0 No Estela 12 unit, Boy tadeo regular 4-20 Young 0.12 mL, l 00:54: Route: Bear 00 SUB-Q, Drug form: SOLN, TID-Before Meals, [...] mL, Route: l 00:54: Grazyna IVP, Drug Bear 00 Law Form: INJ, Dosing Weight 91.818, [...] mL, Route: l 00:54: Grazyna IVP, Drug Bear 00 Law Form: INJ, Dosing Weight 91.818, [...] mL, Route: l 00:54: Grazyna IVP, Drug Bear 00 Law Form: INJ, Dosing Weight 91.818, [...] mL, Route: l 00:54: Grazyna IVP, Drug Bear Law Form: INJ, Dosing Weight 91.818, kg, [...] 4-20 Young 0.12 mL, l 00:54: Route: Bear 00 SUB-Q, Drug form: SOLN, TID-Before Meals, [...] Young mL, Route: l 21:00: IVPB, Drug Bear 00 form: INJ, Q2H, Dosing Weight 91.818, [...] Young mL, Route: l 21:00: IVPB, Drug Bear 00 form: INJ, Q2H, Dosing Weight 91.818, kg, Total dose = 4 gm, Start date: 10/04/12 16:00:00, Duration: 2 doses or times, Stop date: 10/04/12 18:00:00 magnesium 2012-0 No Estela 2 gm, 50 Me moria sulfate 4-19 Young mL, Route: l 21:00: IVPB, Drug Bear 00 form: INJ, Q2H, Dosing Weight 91.818, [...] Young mL, Route: l 21:00: IVPB, Drug Bear 00 form: INJ, Q2H, Dosing Weight 91.818, kg, Total dose = 4 gm, Start date: 10/04/12 16:00:00, Duration: 2 doses or times, Stop date: 10/04/12 18:00:00 magnesium 2012-0 No Estela 2 gm, 50 Me moria sulfate 4-19 Young mL, Route: l 21:00: IVPB, Drug Bear 00 form: INJ, Q2H, Dosing Weight 91.818, [...] Michael mL, Route: l 16:52: IVP, Drug Bear 00 form: INJ, ONCE, Dosing Weight 91.818, [...] Michael mL, Route: l 16:52: IVP, Drug Bear 00 form: INJ, ONCE, Dosing Weight 91.818, [...] Stop date: 11/03/12 11:51:00 Ativan 0 No Masiha L 1 mg, 0.5 M emoria 4-19 Michael mL, Route: l 16:52: IVP, Drug Bear 00 form: INJ, ONCE, Dosing Weight 91.818, [...] Michael mL, Route: l 16:52: IVP, Drug Bear 00 form: INJ, ONCE, Dosing Weight 91.818, [...] Michael mL, Route: l 16:52: IVP, Drug Bear 00 form: INJ, ONCE, Dosing Weight 91.818, [...] Mabry Route: PO, l 14:00: Drug form: Bear 00 TAB, Daily, Dosing Weight 91.818, kg, [...] e glycol 4-19 n Deniz pkt, l 8000 14:00: Route: PO, Bear 00 Drug form: PWDR, Daily, Dosing Weight 91.818, kg, Start date: 10/04/12 9:00:00, Duration: 30 day, Stop date: 11/02/12 9:00:00 Zofran 4 mg 2012- Yes [facility] 4 mg, 1 Memoria oral tablet 4-19 n Deniz tab, PO, l 13:02: Q8H, 30 Bear 06 tab, Substituti on Allowed Zofran 4 mg Yes [facility] 4 mg, 1 Memoria oral tablet 4-19 n Deniz tab, PO, l 13:02: Q8H, 30 Bear 06 tab, Substituti on Allowed Zofran 4 [...] Deniz tab, PO, l 13:02: Q8H, 30 Bear 06 tab, Substituti on Allowed Zofran 4 mg Yes [facility] 4 mg, 1 Memoria oral tablet 4-19 n Deniz tab, PO, l 13:02: Q8H, 30 Luke 06 tab, Substituti on Allowed Zofran 4 mg 0 Yes [facility] 4 mg, 1 Memoria oral tablet 4-19 n Deniz tab, PO, l 13:02: Q8H, 30 Luke 06 tab, Substituti on Allowed docusate 0 Yes [facility] 100 mg, 1 Memoria sodium [...] PO, Q6H, l tablet 13:00: PRN, 112 Bear 09 tab, Pain, Substituti on Allowed, TAB tramadol 50 Yes [facility] 1 - 2 tab, Memoria mg oral 4-19 n Deniz PO, Q6H, l tablet 13:00: PRN, 112 Bear 09 tab, Pain, Substituti on Allowed, TAB tramadol 50 Yes [facility] 1 - 2 tab, Memoria mg oral 4-19 n Deniz PO, Q6H, l tablet 13:00: PRN, 112 Bear 09 tab, Pain, Substituti on Allowed, TAB tramadol 50 Yes [facility] 1 - 2 tab, Memoria mg oral 4-19 n Deniz PO, Q6H, l tablet 13:00: PRN, 112 Bear 09 tab, Pain, Substituti on Allowed, TAB [...] PO, Q6H, l tablet 13:00: PRN, 112 Bear 09 tab, Pain, Substituti on Allowed, TAB [...] 30 day, Stop date: 11/03/12 7:56:00 Dilaudid 2013-0 No [facility] 0.3 mg, Memoria 4-19 n Deniz 0.15 mL, l 12:57: Route: IV, Luke 00 Drug form: INJ, Q3H, Dosing Weight 91.818, kg, PRN Pain Score 7-10, Start date: 10/04/12 7:57:00, Duration: 30 day, Stop date: 11/03/12 7:56:00 Dilaudid 2012-0 No [facility] 0.3 mg, Memoria 4-19 n Deniz 0.15 mL, l 12:57: Route: IV, Luke 00 Drug form: INJ, Q3H, Dosing Weight [...] Deniz 0.15 mL, l 12:57: Route: IV, Luke 00 Drug form: INJ, Q3H, Dosing Weight 91.818, kg, PRN Pain Score 7-10, Start date: 10/04/12 7:57:00, Duration: 30 day, Stop date: 11/03/12 7:56:00 Dilaudid 2012-0 No [facility] 0.3 mg, Memoria 4-19 n Deniz 0.15 mL, l 12:57: Route: IV, Bear 00 Drug form: INJ, Q3H, Dosing Weight 91.818, kg, PRN Pain Score 7-10, Start date: 10/04/12 7:57:00, Duration: 30 day, Stop date: 11/03/12 7:56:00 Benadryl 2012-0 No Jui-En 25 mg, 0.5 M emoria -19 Edward Kelly mL, Route: l 08:22: IVP, Drug Bear 00 form: INJ, ONCE, Dosing Weight 91.818, kg, PRN Insomnia, Start date: 10/04/12 3:22:00 Benadryl 2012-0 No Jui-En 25 mg, 0.5 M emoria -19 Edward Kelly mL, Route: l 08:22: IVP, Drug Luke 00 form: INJ, ONCE, Dosing Weight 91.818, kg, PRN Insomnia, Start date: 10/04/12 3:22:00 Benadryl 2012-0 No Jui-En 25 mg, 0.5 M emoria 4-19 Edward Kelly mL, Route: l 08:22: IVP, Drug Bear 00 form: INJ, ONCE, Dosing Weight 91.818, kg, PRN Insomnia, Start date: 10/04/12 3:22:00 Benadryl 2012-0 No Jui-En 25 mg, 0.5 M emoria - Edward Kelly mL, Route: l 08:22: IVP, Drug Bear 00 form: INJ, ONCE, Dosing Weight 91.818, [...] Kelly mL, Route: l 08:22: IVP, Drug Bear 00 form: INJ, ONCE, Dosing Weight 91.818, [...] Young mL, Route: l 08:05: IVP, Drug Bear 00 form: INJ, Q15Min, Dosing Weight 91.818, [...] Young mL, Route: l 08:05: IVP, Drug Bear 00 form: INJ, Q15Min, Dosing Weight 91.818, [...] Young mL, Route: l 08:05: IVP, Drug Bear 00 form: INJ, Q15Min, Dosing Weight 91.818, [...] Young mL, Route: l 08:05: IVP, Drug Bear 00 form: INJ, Q15Min, Dosing Weight 91.818, kg, PRN Hypertensi on, Start date: 10/04/12 3:05:00, Duration: 30 day, Stop date: 11/03/12 3:04:00 labetalol 0 No Estela 10 mg, 2 Me moria 4-19 Young mL, Route: l 08:05: IVP, Drug Bear 00 form: INJ, Q15Min, Dosing Weight 91.818, kg, PRN Hypertensi on, Start date: 10/04/12 3:05:00, Duration: 30 day, Stop date: 11/03/12 3:04:00 hydrALAZINE 2012-0 No [facility] 10 mg, 0.5 Memoria 4-19 n Deniz mL, Route: l 05:16: IV, Drug Bear 00 form: INJ, Q6H, Dosing Weight 91.818, kg, PRN Elevated BP, Start date: 10/04/12 0:16:00, Duration: 30 day, Stop date: 11/03/12 0:15:00 hydrALAZINE 2012-0 No [facility] 10 mg, 0.5 Memoria 4-19 n Deniz mL, Route: l 05:16: IV, Drug Luke 00 form: INJ, Q6H, Dosing Weight 91.818, kg, PRN Elevated BP, Start date: 10/04/12 0:16:00, Duration: 30 day, Stop date: 11/03/12 0:15:00 hydrALAZINE 2012- No [facility] 10 mg, 0.5 Memoria 4-19 n Deniz mL, Route: l 05:16: IV, Drug Bear 00 form: INJ, Q6H, Dosing Weight 91.818, kg, PRN Elevated BP, Start date: 10/04/12 0:16:00, Duration: 30 day, Stop date: 11/03/12 0:15:00 hydrALAZINE 2012-0 No [facility] 10 mg, 0.5 Memoria 4-19 n Deniz mL, Route: l 05:16: IV, Drug Bear 00 form: INJ, Q6H, Dosing Weight 91.818, kg, PRN Elevated BP, Start date: 10/04/12 0:16:00, Duration: 30 day, Stop date: 11/03/12 0:15:00 hydrALAZINE 2012-0 No [facility] 10 mg, 0.5 Memoria 4-19 n Deniz mL, Route: l 05:16: IV, Drug Bear 00 form: INJ, Q6H, Dosing Weight 91.818, [...] Deniz mL, Route: l 05:16: IV, Drug Bear 00 form: INJ, Q6H, Dosing Weight 91.818, kg, PRN Elevated BP, Start date: 10/04/12 0:16:00, Duration: 30 day, Stop date: 11/03/12 0:15:00 hydrALAZINE 2012-0 No [facility] 10 mg, 0.5 Memoria 4-19 n Deniz mL, Route: l 05:16: IV, Drug Bear 00 form: INJ, Q6H, Dosing Weight 91.818, [...] 4-19 Young tab, l 02:00: Route: PO, Bear 00 Drug form: TAB, Q12H, Dosing Weight [...] n Deniz cap, l 02:00: Route: PO, Bear 00 Drug form: CAP, Q12H, Dosing Weight [...] n Deniz cap, l 02:00: Route: PO, Bear 00 Drug form: CAP, Q12H, Dosing Weight 91.818, kg, Start date: 10/03/12 21:00:00, Duration: 30 day, Stop date: 11/02/12 9:00:00 senna 2012-0 No [facility] 8.6 mg, 1 M emoria 4-19 donna Deniz tab, l 02:00: Route: PO, Bear 00 Drug Form: TAB, Dosing Weight 91.818, kg, Q12H, Start date: 10/03/12 21:00:00, Duration: 30 day, Stop date: 11/02/12 9:00:00 carvedilol 2012-0 No Estela 12.5 mg, 1 Memoria 4-19 Young tab, l 02:00: Route: PO, Bear 00 Drug form: TAB, Q12H, Dosing Weight 91.818, kg, Start date: 10/03/12 21:00:00, Stop date: 11/02/12 9:00:00 Saline 2012-0 No [facility] 5 ml, Boy tadeo Flush 0.9% - donna Deniz Route: l 02:00: IVP, Drug Form: INJ, Dosing Weight 91.818, kg, Q12H, Start date: 10/03/12 21:00:00, Duration: 30 day, Stop date: 11/02/12 9:00:00 docusate 2012-0 No [facility] 100 mg, 1 Memoria 4-19 donna Deniz cap, l 02:00: Route: PO, Drug form: CAP, Q12H, Dosing Weight 91.818, kg, Start date: 10/03/12 21:00:00, Duration: 30 day, Stop date: 11/02/12 9:00:00 senna 2012-0 No [facility] 8.6 mg, 1 M emoria 4-19 donna Deniz tab, l 02:00: Route: PO, Bear 00 Drug Form: TAB, Dosing Weight 91.818, [...] n Deniz cap, l 02:00: Route: PO, Bear 00 Drug form: CAP, Q12H, Dosing Weight 91.818, kg, Start date: 10/03/12 21:00:00, Duration: 30 day, Stop date: 11/02/12 9:00:00 senna 2012-0 No [facility] 8.6 mg, 1 M emoria 4-19 n Deniz tab, l 02:00: Route: PO, Luke 00 Drug Form: TAB, Dosing Weight 91.818, kg, Q12H, Start date: 10/03/12 21:00:00, Duration: 30 day, Stop date: 11/02/12 9:00:00 carvedilol 2012-0 No Estela 12.5 mg, 1 Memoria 4-19 Young tab, l 02:00: Route: PO, Bear 00 Drug form: TAB, Q12H, Dosing Weight 91.818, kg, Start date: 10/03/12 21:00:00, Stop date: 11/02/12 9:00:00 Saline 2012-0 No [facility] 5 ml, Boy tadeo Flush 0.9% 4-19 donna Guaman Route: l 02:00: IVP, Drug Bear 00 Form: INJ, Dosing Weight 91.818, kg, Q12H, Start date: 10/03/12 21:00:00, Duration: 30 day, Stop date: 11/02/12 9:00:00 docusate 2012-0 No [facility] 100 mg, 1 Memoria 4-19 n Deniz cap, l 02:00: Route: PO, Bear 00 Drug form: CAP, Q12H, Dosing Weight 91.818, kg, Start date: 10/03/12 21:00:00, Duration: 30 day, Stop date: 11/02/12 9:00:00 senna 2012-0 No [facility] 8.6 mg, 1 M emoria 4-19 n Deniz tab, l 02:00: Route: PO, Bear 00 Drug Form: TAB, Dosing Weight 91.818, [...] Route: l Chloride 01:00: IVPB, Drug Her kowalsik 0.9% IV 100 00 form: mL PDR/INJ, [...] No Petra 12.5 gm, Memoria 50% Syringe -18 Carmen 25 mL, l 23:18: Grazyna Route: [...] units/mL 23:18: Grazyna Route: Richard n human Law SUB-Q, recombinant Drug form: SOLN, PRN, [...] Carmen 25 mL, l 23:18: Grazyna Route: Bear Law IVP, Drug Form: INJ, Dosing Weight [...] Carmen 25 mL, l 23:18: Grazyna Route: Bear 00 Law IVP, Drug Form: INJ, Dosing [...] Carmen 25 mL, l 23:18: Grazyna Route: Bear Law IVP, Drug Form: INJ, Dosing Weight 91.818, kg, PRN, PRN Abnormal Lab Result, Start date: 10/03/12 18:18:00, Duration: 30 day, Stop date: 11/02/12 18:17:00 insulin 2012-0 No Petra 5 unit, Me moria regular 100 4-18 Carmen 0.05 mL, l units/mL 23:18: Grazyna Route: Richard n human Law SUB-Q, recombinant Drug form: SOLN, PRN, [...] Deniz mL, Route: l 23:14: IVP, Drug Bear 00 form: INJ, Q4H, Dosing Weight 91.818, kg, PRN Other -See Comment, Start date: 10/03/12 18:14:00, Duration: 30 day, Stop date: 11/02/12 18:13:00, SBP > 150 mmHg labetalol 2012-0 No [facility] 20 mg, 4 Memoria 4-18 n Deniz mL, Route: l 23:14: IVP, Drug Bear 00 form: INJ, Q15Min, Dosing Weight 91.818, kg, PRN Elevated BP, Start date: 10/03/12 18:14:00, Duration: 3 doses or times, Stop date: 10/04/12 0:00:00, SBP > 150 mmHg hydrALAZINE 2012-0 No [facility] 20 mg, 1 Memoria 4-18 n Deniz mL, Route: l 23:14: IVP, Drug Bear 00 form: INJ, Q4H, Dosing Weight 91.818, [...] Deniz mL, Route: l 23:14: IVP, Drug Bear 00 form: INJ, Q15Min, Dosing Weight 91.818, kg, PRN Elevated BP, Start date: 10/03/12 18:14:00, Duration: 3 doses or times, Stop date: 10/04/12 0:00:00, SBP > 150 mmHg hydrALAZINE 2012-0 No [facility] 20 mg, 1 Memoria 4-18 n Deniz mL, Route: l 23:14: IVP, Drug Bear 00 form: INJ, Q4H, Dosing Weight 91.818, kg, PRN Other -See Comment, Start date: 10/03/12 18:14:00, Duration: 30 day, Stop date: 11/02/12 18:13:00, SBP > 150 mmHg labetalol 2012-0 No [facility] 20 mg, 4 Memoria 4-18 n Deniz mL, Route: l 23:14: IVP, Drug Bear 00 form: INJ, Q15Min, Dosing Weight 91.818, [...] Deniz mL, Route: l 23:14: IVP, Drug Bear 00 form: INJ, Q15Min, Dosing Weight 91.818, [...] Deniz mL, Route: l 23:14: IVP, Drug Bear 00 form: INJ, Q15Min, Dosing Weight 91.818, [...] n Deniz 0.5 mL, l 23:04: Route: Bear 00 IVP, Drug form: INJ, Q5Min, PRN Narcotic Reversal, Start date: 10/03/12 18:04:00, Duration: 30 day, Stop date: 11/02/12 18:03:00 naloxone No [facility] 0.2 mg, Memoria 4-18 n Deniz 0.5 mL, l 23:04: Route: Bear 00 IVP, Drug form: INJ, Q5Min, PRN Narcotic Reversal, Start date: 10/03/12 18:04:00, Duration: 30 day, Stop date: 11/02/12 18:03:00 naloxone No [facility] 0.2 mg, Memoria 4-18 n Deniz 0.5 mL, l 23:04: Route: Bear 00 IVP, Drug form: INJ, Q5Min, PRN [...] n Deniz 0.5 mL, l 23:04: Route: Bear 00 IVP, Drug form: INJ, Q5Min, PRN Narcotic Reversal, Start date: 10/03/12 18:04:00, Duration: 30 day, Stop date: 11/02/12 18:03:00 naloxone 2012-0 No [facility] 0.2 mg, Memoria 4-18 n Deniz 0.5 mL, l 23:04: Route: Luke IVP, Drug form: INJ, Q5Min, PRN Narcotic [...] n Deniz tab, l 21:00: Route: PO, Bear 00 Drug form: TAB, Q8H, Dosing Weight 91.818, kg, Start date: 10/03/12 16:00:00, Duration: 30 day, Stop date: 11/02/12 8:00:00 diazepam 2013-0 No [facility] 5 mg, 1 Memoria 4-18 n Deniz tab, l 21:00: Route: PO, Bear 00 Drug form: TAB, Q8H, Dosing Weight 91.818, kg, Start date: 10/03/12 16:00:00, Duration: 30 day, Stop date: 11/02/12 8:00:00 diazepam 2013-0 No [facility] 5 mg, 1 Memoria 4-18 n Deniz tab, l 21:00: Route: PO, Luke 00 Drug form: TAB, Q8H, Dosing Weight 91.818, kg, Start date: 10/03/12 16:00:00, Duration: 30 day, Stop date: 11/02/12 8:00:00 diazepam 2013-0 No [facility] 5 mg, 1 Memoria 4-18 n Deniz tab, l 21:00: Route: PO, Bear 00 Drug form: TAB, Q8H, Dosing Weight 91.818, kg, Start date: 10/03/12 16:00:00, Duration: 30 day, Stop date: 11/02/12 8:00:00 diazepam 2013-0 No [facility] 5 mg, 1 Memoria 4-18 n Deniz tab, l 21:00: Route: PO, Bear 00 Drug form: TAB, Q8H, Dosing Weight 91.818, kg, Start date: 10/03/12 16:00:00, Duration: 30 day, Stop date: 11/02/12 8:00:00 diazepam 2013-0 No [facility] 5 mg, 1 Memoria 4-18 n Deniz tab, l 21:00: Route: PO, Luke 00 Drug form: TAB, Q8H, Dosing Weight 91.818, kg, Start date: 10/03/12 16:00:00, Duration: 30 day, Stop date: 11/02/12 8:00:00 diazepam 2013-0 No [facility] 5 mg, 1 Memoria 4-18 [...] 4-18 Eng 0.25 mL, l 20:54: Route: Bear 00 IVPB, Drug form: INJ, ONCE, Dosing [...] 4-18 Eng 0.1 mL, l 20:54: Route: Bear 00 IVP, Drug form: INJ, Q2MIN, Dosing Weight 91.818, kg, PRN Narcotic Reversal, Start date: 10/03/12 15:54:00, Duration: 8 doses or times, Stop date: 10/04/12 0:00:00 fentanyl 2012- No Thelma Jaron 25 Mem oria 4-18 Maisha microgram, l 20:54: 0.5 mL, Luke 00 Route: IVP, Drug form: INJ, Q5Min, [...] 4-18 Eng 0.25 mL, l 20:54: Route: Bear 00 IVPB, Drug form: INJ, ONCE, Dosing [...] 4-18 Eng 0.25 mL, l 20:54: Route: Bear 00 IVPB, Drug form: INJ, ONCE, Dosing [...] 4-18 Eng 0.1 mL, l 20:54: Route: Bear 00 IVP, Drug form: INJ, Q2MIN, Dosing Weight 91.818, kg, PRN Narcotic Reversal, Start date: 10/03/12 15:54:00, Duration: 8 doses or times, Stop date: 10/04/12 0:00:00 fentanyl 2012- No Thelma Jaron 25 Mem oria 4-18 Maisha microgram, l 20:54: 0.5 mL, Bear 00 Route: IVP, Drug form: INJ, Q5Min, Dosing Weight 91.818, kg, PRN Pain Score 4-6, Start date: 10/03/12 15:54:00, Duration: 4 doses or times, Stop date: 10/04/12 0:00:00 labetalol No Kahlil 5 mg, 1 M emoria 4-18 Eng mL, Route: l 20:54: IVP, Drug Luke 00 form: INJ, Q5Min, Dosing Weight 91.818, kg, PRN Elevated BP, Start date: 10/03/12 15:54:00, Duration: 5 doses or times, Stop date: 10/04/12 0:00:00 HYDROmorpho No [facility] 15 mg, 30 Memoria ne 0.5mg/mL 4-18 n Deniz mL, Route: l 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 17:00: IV, 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 Bear (15mg/30 00 Dose: 0.3 mL) 15 mg mg, 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 Lockout: 15 minutes, 4 Hour Limit (In MG): 4.8, Drug Form: INJ, Continuous , Start date: 10/03/12 12:00:00, Stop date: 11/02/12 11:59:00 HYDROmorpho No [facility] 15 mg, 30 Memoria ne 0.5mg/mL 4-18 n Deniz mL, Route: l 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 17:00: IV, 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 Bear (15mg/30 00 Dose: 0.3 mL) 15 mg mg, 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 Lockout: 15 minutes, 4 Hour Limit (In MG): 4.8, Drug Form: INJ, Continuous , Start date: 10/03/12 12:00:00, Stop date: 11/02/12 11:59:00 HYDROmorpho 0 No [facility] 15 mg, 30 Memoria ne 0.5mg/mL 4-18 n Deniz mL, Route: l 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 17:00: IV, 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 Luke (15mg/30 00 Dose: 0.3 mL) 15 mg mg, 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 Lockout: 15 minutes, 4 Hour Limit (In MG): 4.8, Drug Form: INJ, Continuous , Start date: 10/03/12 12:00:00, Stop date: 11/02/12 11:59:00 HYDROmorpho 0 No [facility] 15 mg, 30 Memoria ne 0.5mg/mL 4-18 n Deniz mL, Route: l 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 17:00: IV, 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 Bear (15mg/30 00 Dose: 0.3 mL) 15 mg mg, 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 Lockout: 15 minutes, 4 Hour Limit (In MG): 4.8, Drug Form: INJ, Continuous , Start date: 10/03/12 12:00:00, Stop date: 11/02/12 11:59:00 HYDROmorpho 0 No [facility] 15 mg, 30 Memoria ne 0.5mg/mL 4-18 n Deniz mL, Route: l 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 17:00: IV, 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 Bear (15mg/30 00 Dose: 0.3 mL) 15 mg mg, 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 Lockout: 15 minutes, 4 Hour Limit (In MG): 4.8, Drug Form: INJ, Continuous , Start date: 10/03/12 12:00:00, Stop date: 11/02/12 11:59:00 HYDROmorpho 2012-0 No [facility] 15 mg, 30 Memoria ne 0.5mg/mL 4-18 n Deniz mL, Route: l 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 17:00: IV, 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 Bear (15mg/30 00 Dose: 0.3 mL) 15 mg mg, 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 Lockout: 15 minutes, 4 Hour Limit (In MG): 4.8, Drug Form: INJ, Continuous , Start date: 10/03/12 12:00:00, Stop date: 11/02/12 11:59:00 HYDROmorpho 2012-0 No [facility] 15 mg, 30 Memoria ne 0.5mg/mL 4-18 n Deniz mL, Route: l 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 17:00: IV, 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 Bear (15mg/30 00 Dose: 0.3 mL) 15 mg mg, 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 Lockout: 15 minutes, 4 Hour Limit (In MG): 4.8, Drug Form: INJ, Continuous , Start date: 10/03/12 12:00:00, Stop date: 11/02/12 11:59:00 HYDROmorpho No [facility] 15 mg, 30 Memoria ne 0.5mg/mL 4-18 n Deniz mL, Route: l 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 17:00: IV, 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 Luke (15mg/30 00 Dose: 0.3 mL) 15 mg mg, 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 Lockout: 15 minutes, 4 Hour Limit (In MG): 4.8, Drug Form: INJ, Continuous , Start date: 10/03/12 12:00:00, Stop date: 11/02/12 11:59:00 Saline No [facility] 5 ml, Boy tadeo Flush 0.9% 4-18 n Deniz Route: l 16:42: IVP, Drug Bear 00 Form: INJ, Dosing Weight 91.818, kg, PRN, PRN Line Flush, Start date: 10/03/12 11:42:00, Duration: 30 day, Stop date: 11/02/12 11:41:00 ondansetron No [facility] 4 mg, 2 Memoria 4-18 n Deniz mL, Route: l 16:42: IVP, Drug Bear 00 form: INJ, Q8H, Dosing Weight 91.818, kg, PRN Nausea & Vomiting, Start date: 10/03/12 11:42:00, Duration: 30 day, Stop date: 11/02/12 11:41:00 acetaminoph 0 No [facility] 650 mg, Memoria en 4-18 n Deniz 20.3 mL, l 16:42: Route: PO, Bear 00 Drug form: LIQ, Q4H, Dosing Weight [...] No [facility] 650 mg, Memoria en 4-18 donna Deniz 20.3 mL, l 16:42: Route: PO, Bear 00 Drug form: LIQ, Q4H, Dosing Weight [...] Deniz mL, Route: l 16:42: IVP, Drug Bear 00 form: INJ, Q8H, Dosing Weight 91.818, [...] No [facility] 1 tab, Memoria en-hydrocod 4-18 donna Guaman Route: PO, l one 325 [...] Deniz mL, Route: l 16:42: IVP, Drug Bear 00 form: INJ, Q8H, Dosing Weight 91.818, kg, PRN Nausea & Vomiting, Start date: 10/03/12 11:42:00, Duration: 30 day, Stop date: 11/02/12 11:41:00 acetaminoph No [facility] 650 mg, Memoria en 4-18 n Deniz 20.3 mL, l 16:42: Route: PO, Bear 00 Drug form: LIQ, Q4H, Dosing Weight [...] n Deniz Route: l 16:42: IVP, Drug Bear 00 Form: INJ, Dosing Weight 91.818, kg, [...] No [facility] 1 tab, Memoria en-hydrocod 4-18 donna Deniz Route: PO, l one 325 16:42: [...] No [facility] 650 mg, Memoria en 4-18 donna Deniz 20.3 mL, l 16:42: Route: PO, Bear 00 Drug form: LIQ, Q4H, Dosing Weight [...] donna Guaman Route: l 16:42: IVP, Drug Luke 00 [...] No [facility] 650 mg, Memoria en 4-18 donna Guaman 20.3 mL, l 16:42: Route: PO, Luke 00 Drug form: LIQ, Q4H, Dosing Weight 91.818, kg, PRN Pain 1-3/Temp > 99.5 F, Start date: 10/03/12 11:42:00, Duration: 30 day, Stop date: 11/02/12 11:41:00 acetaminoph No [facility] 1 tab, Memoria en-hydrocod 4-18 donna Guaman Route: PO, l one 325 [...] M emoria 4-18 on Allowed l 15:03: NS + KCL No Keron 1,000 mL, [...] cefazolin No Keron 2 gm, 100 Memoria 18 Gabbie mL, Route: l 10:00: William IVPB, Drug Herm form: INJ, PRE OP, Start date: 10/03/12 5:00:00, Duration: 1 day, Stop date: 10/04/12 4:59:00 Vicodin HP 0 Yes PO, PRN, Mem oria 10 mg-300 4-16 Substituti l mg oral 21:32: on Bear tablet 18 Allowed, Maintenanc e Vicodin HP 0 Yes PO, PRN, Mem oria 10 mg-300 4-16 Substituti l mg oral 21:32: on Luke tablet 18 Allowed, Maintenanc e Vicodin HP 2012-0 Yes PO, PRN, Mem oria 10 mg-300 4-16 Substituti l mg oral 21:32: on Luke tablet 18 Allowed, Maintenanc e Vicodin HP 0 Yes PO, PRN, Mem oria 10 mg-300 4-16 Substituti l mg oral 21:32: on Luke tablet 18 Allowed, Maintenanc e Vicodin HP 0 Yes PO, PRN, Mem oria 10 mg-300 4-16 Substituti l mg oral 21:32: on Luke tablet 18 Allowed, Maintenanc e Vicodin HP 2012-0 Yes PO, PRN, Mem oria 10 mg-300 4-16 Substituti l mg oral 21:32: on Luke tablet 18 Allowed, Maintenanc e Vicodin HP 0 Yes PO, PRN, Mem oria 10 mg-300 4-16 Substituti l mg oral 21:32: on Bear tablet 18 Allowed, Maintenanc e Vicodin HP 2012-0 Yes PO, PRN, Mem oria 10 mg-300 4-16 Substituti l mg oral 21:32: on Bear tablet 18 Allowed, Maintenanc e Dulcolax 2012- Yes 1 supp, Memori a Laxative 4-16 NV, Daily, l 21:32: PRN, 5 Ulke 02 supp, constipati on, Substituti on Allowed, SUPP Dulcolax 2012- Yes 1 supp, Memori a Laxative 4-16 NV, Daily, l 21:32: PRN, 5 Bear 02 supp, constipati on, Substituti on Allowed, SUPP Dulcolax 2012-0 Yes 1 supp, Memori a Laxative 4-16 NV, Daily, l 21:32: PRN, 5 Luke 02 supp, constipati on, Substituti on Allowed, SUPP Dulcolax 2012-0 Yes 1 supp, Memori a Laxative 4-16 NV, Daily, l 21:32: PRN, 5 Luke 02 supp, constipati on, Substituti on Allowed, SUPP Dulcolax 2012-0 Yes 1 supp, Memori a Laxative 4-16 NV, Daily, l 21:32: PRN, 5 Luke 02 supp, constipati on, Substituti on Allowed, SUPP Dulcolax 2012- Yes 1 supp, Memori a Laxative 4-16 NV, Daily, l 21:32: PRN, 5 Bear 02 supp, constipati on, Substituti on Allowed, SUPP Dulcolax Yes 1 supp, Memori a Laxative 4-16 NV, Daily, l 21:32: PRN, 5 Bear 02 supp, constipati on, Substituti on Allowed, SUPP Dulcolax 2012- Yes 1 supp, Memori a Laxative 4-16 NV, Daily, l 21:32: PRN, 5 Luke 02 supp, constipati on, Substituti on Allowed, SUPP clonidine Yes [facility] PO, QID, Memoria 0.1 mg oral 4-16 n Deniz prn l tablet 21:31: bp>160, Bear 30 Substituti on [id number] clonidine Yes [facility] PO, QID, Memoria 0.1 mg oral 4-16 n Deniz prn l tablet 21:31: bp>160, Luke 30 Substituti on [id number] clonidine Yes [facility] PO, QID, Memoria 0.1 mg oral 4-16 n Deniz prn l tablet 21:31: bp>160, Bear 30 Substituti on [id number] clonidine Yes [facility] PO, QID, Memoria 0.1 mg oral 4-16 n Deniz prn l tablet 21:31: bp>160, Bear 30 Substituti on [id number] clonidine Yes -Joseo PO, QID, Memoria 0.1 mg oral 4-16 n Deniz prn l tablet 21:31: bp>160, Bear 30 Substituti on [id number] clonidine Yes -Joseo PO, QID, Memoria 0.1 mg oral 4-16 n Deniz prn l tablet 21:31: bp>160, Luke 30 Substituti on [id number] clonidine Yes -Joseo PO, QID, Memoria 0.1 mg oral 4-16 n Deniz prn l tablet 21:31: bp>160, Bear 30 Substituti on [id number] clonidine Yes -Joseo PO, QID, Memoria 0.1 mg oral 4-16 n Deniz prn l tablet 21:31: bp>160, Luke 30 Substituti on [id number] Benicar HCT Yes 1 tab, PO, Memoria 12.5 mg-40 4-16 Daily, 30 l mg oral 21:30: tab, Bear tablet 43 Substituti on Allowed, Maintenanc e, TAB Benicar HCT Yes 1 tab, PO, Memoria 12.5 mg-40 4-16 Daily, 30 l mg oral 21:30: tab, Luke tablet 43 Substituti on Allowed, Maintenanc e, TAB Benicar HCT Yes 1 tab, PO, Memoria 12.5 mg-40 4-16 Daily, 30 l mg oral 21:30: tab, Bear tablet 43 Substituti on Allowed, Maintenanc e, [...] Daily, 30 l mg oral 21:30: tab, Bear tablet 43 Substituti on Allowed, Maintenanc e, [...] tab, PO, l tablet 21:30: Q12H, 60 Bear 29 tab, Substituti on Allowed, TAB carvedilol Yes [facility] 25 mg, 1 Memoria 25 mg oral 4-16 n Deniz tab, PO, l tablet 21:30: Q12H, 60 Bear 29 tab, Substituti on Allowed, TAB carvedilol Yes [facility] 25 mg, 1 Memoria 25 mg oral 4-16 n Deniz tab, PO, l tablet 21:30: Q12H, 60 Bear 29 tab, Substituti on Allowed, TAB carvedilol Yes [facility] 25 mg, 1 Memoria 25 mg oral 4-16 n Deniz tab, PO, l tablet 21:30: Q12H, 60 Bear 29 tab, Substituti on Allowed, TAB carvedilol [...] Bedtime, Luke 53 Substituti on Allowed Lantus Yes 22 unit, Memoria 4-16 SUB-Q, [...] tab, PO, l tablet 21:29: Daily, Luke Luke Substituti on Allowed glimepiride 2013-0 Yes 8 mg, 2 Mem oria 4 mg oral 4-16 tab, PO, l tablet 21:29: Daily, Luke Luke Substituti on Allowed glimepiride 2013-0 Yes 8 [...] tab, PO, l tablet 21:29: Daily, Luke Luke Substituti on Allowed glimepiride 2013-0 Yes 8 mg, 2 Mem oria 4 mg oral 4-16 tab, PO, l tablet 21:29: Daily, Luke 45 Substituti on Allowed glimepiride 2013-0 Yes 8 mg, 2 Mem oria 4 mg oral 4-16 tab, PO, l tablet 21:29: Daily, Luke 45 Substituti on Allowed glimepiride 2012- Yes 8 mg, 2 Mem oria 4 mg oral 4-16 tab, PO, l tablet 21:29: Daily, Bear 45 Substituti on Allowed glimepiride glimepiride 2010-06 [...] ID NOW Arlin COVID-19 COVID-19 COVID-19 Ort tonica Test Kit Test Kit Test Kit dic [...] MD by other Sports MD Medicin e Bartolosiba Tresiba No Tresiba Arlin FlexTouch FlexTouch FlexTouch [...] by other RX by dic MD other MD Wood pennington DulcoEase DulcoEase No DulcoEase Arlin 100 [...] other MD by other Sports MD Rajesh Ortegadufifi No Jordandufifi Arlin XR 5 XR 5 XR 5 [...] DAY EVERY DAY nifedipine nifedipine No nifedipine Arlni ER 30 mg ER 30 mg ER [...] TDD CF 1:30 50 50 TDD 50 metFORMIN metFORMIN Yes UT HCl - 500 HCl - 500 Physi ci MG Oral MG Oral ans Tablet Tablet nystatin-tr nystatin-tr No nystatin-t Arlin iamcinolone iamcinolone [...] DAYS 30 DAYS WEEK FOR 30 DAYS Tresiba Tresiba Yes UT FlexTouch FlexTouch Physi ci 100 UNIT/ML 100 UNIT/ML a ns Subcutaneou Subcutaneou s Solution s Solution Pen-injecto Pen-injecto r r Restasis Restasis No Restasis Aza maritza 0.05 [...] UNITS* DIRECTED *TOTAL DAILY DOSE 50 UNITS* Tradjenta 5 Tradjenta 5 Yes U T [...] MD by other Sports MD Medicin e Trulicity Trulicity Yes UT 0.75 0.75 Physici MG/0.5ML MG/0.5ML ans Subcutaneou Subcutaneou s Solution s Solution Pen-injecto Pen-injecto r r amoxicillin amoxicillin No amoxicilli Arlin 500 mg [...] A DAY MOUTH e TWICE A DAY amLODIPine amLODIPine Yes UT Besylate 5 Besylate 5 Phy sici MG Oral MG Oral ans Tablet Tablet cinacalcet cinacalcet No cinacalcet Arlin 30 mg [...] by other MD by other e MD Carvedilol Carvedilol Yes UT 25 MG Oral [...] MiraLax Yes UT POWD POWD Physici ans Accu-Chek Accu-Chek No Accu-Chek [facility] Fior Meter Fior Meter Fior Family Meter Practic e Accu-Chek Accu-Chek No Accu-Chek [facility] Fior Plus Fior Plus Fior Plus Family test strips test strips test P ractic TEST 3 TEST 3 strips e TIMES A DAY TIMES A DAY TEST 3 DIRECTED DIRECTED TIMES A DAY DIRECTED Accu-Chek Accu-Chek No Accu-Chek [facility] Fastclix Fastclix Fastclix Fam gail Lancet Drum Lancet Drum Lancet Practic USE USE Drum USE e DIRECTED 3 DIRECTED 3 TIMES DAILY TIMES DAILY DIRECTED 3 TIMES DAILY Accu-Chek Accu-Chek No Accu-Chek [facility] FastClix FastClix FastClix Fam gail Lancing Lancing Lancing Practi c Device Device Device e acetaminoph acetaminoph No acetaminop [facility] en 300 en 300 hen 300 Family mg-codeine mg-codeine mg-codeine Practic 60 mg 60 mg 60 mg e tablet TAKE tablet TAKE tablet 1 TABLET BY 1 TABLET BY TAKE 1 MOUTH EVERY MOUTH EVERY TABLET BY 6 HOURS 6 HOURS MOUTH NEEDED NEEDED EVERY 6 HOURS NEEDED acyclovir acyclovir No acyclovir [facility] 800 mg 800 mg 800 mg Family tablet tablet tablet Practic e alprazolam alprazolam No alprazolam [facility] 0.25 mg 0.25 mg 0.25 mg Family [...] DAILY TIMES DAILY carvedilol carvedilol No carvedilol [facility] 12.5 mg 12.5 mg 12.5 mg Family tablet TAKE tablet TAKE tablet Practic 1 TABLET BY 1 TABLET BY TAKE 1 e MOUTH TWICE MOUTH TWICE TABLET BY A DAY A DAY MOUTH TWICE A DAY carvedilol carvedilol No carvedilol [facility] 25 mg 25 mg 25 mg Family tablet TAKE tablet TAKE tablet Practic 1 TABLET BY 1 TABLET BY TAKE 1 e MOUTH TWICE MOUTH TWICE TABLET BY A DAY A DAY MOUTH TWICE A DAY cinacalcet cinacalcet No cinacalcet [facility] 30 mg 30 mg 30 mg Family tablet TAKE tablet TAKE tablet Practic 1 TABLET BY 1 TABLET BY TAKE 1 e MOUTH TWICE MOUTH TWICE TABLET BY A DAY A DAY MOUTH TWICE A DAY clonidine clonidine No clonidine [facility] HCl 0.1 mg HCl 0.1 mg HCl [...] MOUTH EVERY DAY furosemide furosemide No furosemide [facility] 20 mg 20 mg 20 mg Family [...] TWICE A DAY hydrocodone hydrocodone No hydrocodon [facility] 5 5 e 5 Family mg-acetamin mg-acetamin [...] DIRECTED DIRECTED DIRECTED TODAY TODAY TODAY [facility] XR 5 XR 5 XR 5 Family mg-1,000 mg mg-1,000 mg mg-1,000 Practic tablet, tablet, mg tablet, e extended extended extended release release release TAKE 1 TAKE 1 TAKE 1 TABLET BY TABLET BY TABLET BY MOUTH EVERY MOUTH EVERY MOUTH DAY IN THE DAY IN THE EVERY DAY MORNING MORNING IN THE MORNING lisinopril lisinopril lisinopril [facility] 20 mg 20 mg 20 mg Family [...] Family Practic e nifedipine nifedipine No nifedipine [facility] ER 30 mg ER 30 mg ER 30 mg Fam gail tablet,exte tablet,exte tablet,ext Practic nded nded ended e release release release nifedipine nifedipine No nifedipine [facility] ER 30 mg ER 30 mg ER [...] DIRECTED INCREASE DIRECTED valsartan valsartan No valsartan [facility] 320 mg 320 mg 320 mg Family tablet TAKE tablet TAKE tablet Practic 1 TABLET BY 1 TABLET BY TAKE 1 e MOUTH EVERY MOUTH EVERY TABLET BY DAY DAY MOUTH EVERY DAY Vitamin D3 Vitamin D3 No Vitamin D3 [facility] Family Practic e Accu-Chek Accu-Chek No Accu-Chek [facility] Fior Meter Fior Meter Fior Family Meter Practic e Accu-Chek Accu-Chek No Accu-Chek [facility] Fior Plus Fior Plus Fior Plus Family test strips test strips test P ractic TEST 3 TEST 3 strips e TIMES A DAY TIMES A DAY TEST 3 DIRECTED DIRECTED TIMES A DAY DIRECTED Accu-Chek Accu-Chek No Accu-Chek [facility] Fastclix Fastclix Fastclix Fam gail Lancet Drum Lancet Drum Lancet Practic USE USE Drum USE e DIRECTED 3 DIRECTED 3 TIMES DAILY TIMES DAILY DIRECTED 3 TIMES DAILY Accu-Chek Accu-Chek No Accu-Chek [facility] FastClix FastClix FastClix Fam gail Lancing Lancing Lancing Practi c Device Device Device e acetaminoph acetaminoph No acetaminop [facility] en 300 en 300 hen 300 Family mg-codeine mg-codeine mg-codeine Practic 60 mg 60 mg 60 mg e tablet TAKE tablet TAKE tablet 1 TABLET BY 1 TABLET BY TAKE 1 MOUTH EVERY MOUTH EVERY TABLET BY 6 HOURS 6 HOURS MOUTH NEEDED NEEDED EVERY 6 HOURS NEEDED acyclovir acyclovir No acyclovir [facility] 800 mg 800 mg 800 mg Family tablet tablet tablet Practic e alprazolam alprazolam No alprazolam [facility] 0.25 mg 0.25 mg 0.25 mg Family [...] DAILY TIMES DAILY budesonide budesonide No budesonide [facility] 1 mg/2 mL 1 mg/2 mL 1 [...] TO TWICE DAILY carvedilol carvedilol No carvedilol [facility] 12.5 mg 12.5 mg 12.5 mg Family [...] - TWICE DAILY cinacalcet cinacalcet No cinacalcet [facility] 30 mg 30 mg 30 mg Family tablet TAKE tablet TAKE tablet Practic 1 TABLET BY 1 TABLET BY TAKE 1 e MOUTH TWICE MOUTH TWICE TABLET BY A DAY A DAY MOUTH TWICE A DAY clindamycin clindamycin No clindamyci [facility] 2 % vaginal 2 % vaginal n 2 % Family cream cream vaginal Practic cream e clonidine clonidine No clonidine [facility] HCl 0.1 mg HCl 0.1 mg HCl [...] DIRECTED DIRECTED DIRECTED ezetimibe ezetimibe No ezetimibe [facility] 10 mg 10 mg 10 mg Family tablet TAKE tablet TAKE tablet Practic 1 TABLET BY 1 TABLET BY TAKE 1 e MOUTH EVERY MOUTH EVERY TABLET BY DAY DAY MOUTH EVERY DAY fluconazole fluconazole No fluconazol [facility] 150 mg 150 mg e 150 mg Family tablet 1 tablet 1 tablet 1 Pra ctic TABLET TABLET TABLET e ORALLY NOW, ORALLY NOW, ORALLY THEN AGAIN THEN AGAIN NOW, THEN IN 72 HOURS IN 72 HOURS AGAIN IN 4 DAY(S) 4 DAY(S) 72 HOURS 4 DAY(S) furosemide furosemide No furosemide [facility] 20 mg 20 mg 20 mg Family tablet TAKE tablet TAKE tablet Practic 1 TABLET BY 1 TABLET BY TAKE 1 e MOUTH EVERY MOUTH EVERY TABLET BY DAY DAY MOUTH EVERY DAY gabapentin gabapentin No gabapentin [facility] 300 mg 300 mg 300 mg Family capsule capsule capsule Practi c TAKE 1 TAKE 1 TAKE 1 e CAPSULE BY CAPSULE BY CAPSULE BY MOUTH THREE MOUTH THREE MOUTH TIMES A DAY TIMES A DAY THREE TIMES A DAY hydralazine hydralazine No hydralazin [facility] 25 mg 25 mg e 25 mg Family tablet TAKE tablet TAKE tablet Practic 1 TABLET BY 1 TABLET BY TAKE 1 e MOUTH THREE MOUTH THREE TABLET BY TIMES A DAY TIMES A DAY MOUTH THREE TIMES A DAY hydrocodone hydrocodone No hydrocodon [facility] 5 5 e 5 Family mg-acetamin mg-acetamin mg-acetami Practic ophen 325 ophen 325 nophen 325 e mg tablet mg tablet mg tablet TAKE 1 TAKE 1 TAKE 1 TABLET BY TABLET BY TABLET BY MOUTH EVERY MOUTH EVERY MOUTH 6 HOURS 6 HOURS EVERY 6 NEEDED NEEDED HOURS NEEDED [facility] XR 5 XR 5 XR 5 Family mg-1,000 mg mg-1,000 mg mg-1,000 Practic tablet, tablet, mg tablet, e extended extended extended release release release TAKE 1 TAKE 1 TAKE 1 TABLET BY TABLET BY TABLET BY MOUTH EVERY MOUTH EVERY MOUTH DAY IN THE DAY IN THE EVERY DAY MORNING MORNING IN THE MORNING lisinopril lisinopril lisinopril [facility] 20 mg 20 mg 20 mg Family tablet TAKE tablet TAKE tablet Practic 2 TABLETS 2 TABLETS TAKE 2 e BY MOUTH BY MOUTH TABLETS BY EVERY DAY EVERY DAY MOUTH EVERY DAY Livalo 4 mg Livalo 4 mg No Livalo 4 [facility] tablet TAKE tablet TAKE mg tablet Family [...] tic ointment e nifedipine nifedipine No nifedipine [facility] ER 30 mg ER 30 mg ER [...] 50 TDD 50 nystatin-tr nystatin-tr No nystatin-t [facility] iamcinolone iamcinolone riamcinolo Family 100,000 100,000 ne [...] FOR 30 DAYS omeprazole omeprazole No omeprazole [facility] 20 mg 20 mg 20 mg Family [...] DIRECTED INCREASE DIRECTED valsartan valsartan No valsartan [facility] 320 mg 320 mg 320 mg Family tablet TAKE tablet TAKE tablet Practic 1 TABLET BY 1 TABLET BY TAKE 1 e MOUTH EVERY MOUTH EVERY TABLET BY DAY DAY MOUTH EVERY DAY Vitamin D3 Vitamin D3 No Vitamin D3 [facility] Family Practic e Accu-Chek Accu-Chek No Accu-Chek [facility] Fior Meter Fior Meter Fior Family Meter Practic e Accu-Chek Accu-Chek No Accu-Chek [facility] Fior Plus Fior Plus Fior Plus Family test strips test strips test P ractic TEST 3 TEST 3 strips e TIMES A DAY TIMES A DAY TEST 3 DIRECTED DIRECTED TIMES A DAY DIRECTED Accu-Chek Accu-Chek No Accu-Chek [facility] Fastclix Fastclix Fastclix Fam gail Lancet Drum Lancet Drum Lancet Practic USE USE Drum USE e DIRECTED 3 DIRECTED 3 TIMES DAILY TIMES DAILY DIRECTED 3 TIMES DAILY Accu-Chek Accu-Chek No Accu-Chek [facility] FastClix FastClix FastClix Fam gail Lancing Lancing Lancing Practi c Device Device Device e acetaminoph acetaminoph No acetaminop [facility] en 300 en 300 hen 300 Family mg-codeine mg-codeine mg-codeine Practic 60 mg 60 mg 60 mg e tablet TAKE tablet TAKE tablet 1 TABLET BY 1 TABLET BY TAKE 1 MOUTH EVERY MOUTH EVERY TABLET BY 6 HOURS 6 HOURS MOUTH NEEDED NEEDED EVERY 6 HOURS NEEDED acyclovir acyclovir No acyclovir [facility] 800 mg 800 mg 800 mg Family tablet tablet tablet Practic e alprazolam alprazolam No alprazolam [facility] 0.25 mg 0.25 mg 0.25 mg Family [...] DAILY TIMES DAILY budesonide budesonide No budesonide [facility] 1 mg/2 mL 1 mg/2 mL 1 mg/2 mL [facility] suspension suspension suspension Practic for for [...] TO TWICE DAILY carvedilol carvedilol No carvedilol [facility] 12.5 mg 12.5 mg 12.5 mg Family [...] - TWICE DAILY cinacalcet cinacalcet No cinacalcet [facility] 30 mg 30 mg 30 mg Family tablet TAKE tablet TAKE tablet Practic 1 TABLET BY 1 TABLET BY TAKE 1 e MOUTH TWICE MOUTH TWICE TABLET BY A DAY A DAY MOUTH TWICE A DAY clindamycin clindamycin No clindamyci [facility] 2 % vaginal 2 % vaginal n 2 % Family cream cream vaginal Practic cream e clonidine clonidine No clonidine [facility] HCl 0.1 mg HCl 0.1 mg HCl [...] DIRECTED DIRECTED DIRECTED ezetimibe ezetimibe No ezetimibe [facility] 10 mg 10 mg 10 mg Family tablet TAKE tablet TAKE tablet Practic 1 TABLET BY 1 TABLET BY TAKE 1 e MOUTH EVERY MOUTH EVERY TABLET BY DAY DAY MOUTH EVERY DAY fluconazole fluconazole No fluconazol [facility] 150 mg 150 mg e 150 mg Family tablet 1 tablet 1 tablet 1 Pra ctic TABLET TABLET TABLET e ORALLY NOW, ORALLY NOW, ORALLY THEN AGAIN THEN AGAIN NOW, THEN IN 72 HOURS IN 72 HOURS AGAIN IN 4 DAY(S) 4 DAY(S) 72 HOURS 4 DAY(S) furosemide furosemide No furosemide [facility] 20 mg 20 mg 20 mg Family tablet TAKE tablet TAKE tablet Practic 1 TABLET BY 1 TABLET BY TAKE 1 e MOUTH EVERY MOUTH EVERY TABLET BY DAY DAY MOUTH EVERY DAY gabapentin gabapentin No gabapentin [facility] 300 mg 300 mg 300 mg Family capsule capsule capsule Practi c TAKE 1 TAKE 1 TAKE 1 e CAPSULE BY CAPSULE BY CAPSULE BY MOUTH THREE MOUTH THREE MOUTH TIMES A DAY TIMES A DAY THREE TIMES A DAY hydralazine hydralazine No hydralazin [facility] 25 mg 25 mg e 25 mg Family tablet TAKE tablet TAKE tablet Practic 1 TABLET BY 1 TABLET BY TAKE 1 e MOUTH THREE MOUTH THREE TABLET BY TIMES A DAY TIMES A DAY MOUTH THREE TIMES A DAY hydrocodone hydrocodone No hydrocodon [facility] 5 5 e 5 Family mg-acetamin mg-acetamin mg-acetami Practic ophen 325 ophen 325 nophen 325 e mg tablet mg tablet mg tablet TAKE 1 TAKE 1 TAKE 1 TABLET BY TABLET BY TABLET BY MOUTH EVERY MOUTH EVERY MOUTH 6 HOURS 6 HOURS EVERY 6 NEEDED NEEDED HOURS [facility]ED [facility] XR 5 XR 5 XR 5 Family [...] days. for 90 days. lisinopril lisinopril lisinopril [facility] 20 mg 20 mg 20 mg Family tablet TAKE tablet TAKE tablet Practic 2 TABLETS 2 TABLETS TAKE 2 e BY MOUTH BY MOUTH TABLETS BY EVERY DAY EVERY DAY MOUTH EVERY DAY Livalo 4 mg Livalo 4 mg No Livalo 4 [facility] tablet TAKE tablet TAKE mg tablet Family 1 TABLET BY 1 TABLET BY TAKE 1 Practic MOUTH MOUTH TABLET BY e EVERYDAY AT EVERYDAY AT MOUTH BEDTIME BEDTIME EVERYDAY AT BEDTIME Miralax Miralax No Miralax [facility] e Family Practic e mupirocin 2 mupirocin 2 No mupirocin [facility] % topical % topical 2 % Famil y ointment ointment topical Prac tic ointment e nifedipine nifedipine No nifedipine [facility] ER 30 mg ER 30 mg ER [...] 50 TDD 50 nystatin-tr nystatin-tr No nystatin-t [facility] iamcinolone iamcinolone riamcinolo Family 100,000 100,000 ne [...] FOR 30 DAYS omeprazole omeprazole No omeprazole [facility] 20 mg 20 mg 20 mg Family [...] directed: TDD 60 valsartan valsartan No valsartan [facility] 320 mg 320 mg 320 mg Family tablet TAKE tablet TAKE tablet Practic 1 TABLET BY 1 TABLET BY TAKE 1 e MOUTH EVERY MOUTH EVERY TABLET BY DAY DAY MOUTH EVERY DAY Vitamin D3 Vitamin D3 No Vitamin D3 [facility] Accu-Chek Accu-Chek No Accu-Chek [facility] Fior Meter Fior Meter Fior Family Meter Practic e Accu-Chek Accu-Chek No Accu-Chek [facility] Fior Plus Fior Plus Fior Plus Family test strips test strips test P ractic TEST 3 TEST 3 strips e TIMES A DAY TIMES A DAY TEST 3 DIRECTED DIRECTED TIMES A DAY DIRECTED Accu-Chek Accu-Chek No Accu-Chek [facility] Fastclix Fastclix Fastclix Fam gail Lancet Drum Lancet Drum Lancet Practic USE USE Drum USE e DIRECTED 3 DIRECTED 3 TIMES DAILY TIMES DAILY DIRECTED 3 TIMES DAILY Accu-Chek Accu-Chek No Accu-Chek [facility] FastClix FastClix FastClix Fam gail Lancing Lancing Lancing Practi c Device Device Device e acetaminoph acetaminoph No acetaminop [facility] en 300 en 300 hen 300 Family mg-codeine mg-codeine mg-codeine Practic 60 mg 60 mg 60 mg e tablet TAKE tablet TAKE tablet 1 TABLET BY 1 TABLET BY TAKE 1 MOUTH EVERY MOUTH EVERY TABLET BY 6 HOURS 6 HOURS MOUTH NEEDED NEEDED EVERY 6 HOURS NEEDED acyclovir acyclovir No acyclovir [facility] 800 mg 800 mg 800 mg Family tablet tablet tablet Practic e alprazolam alprazolam No alprazolam [facility] 0.25 mg 0.25 mg 0.25 mg Family [...] DAILY TIMES DAILY budesonide budesonide No budesonide [facility] 1 mg/2 mL 1 mg/2 mL 1 [...] TO TWICE DAILY carvedilol carvedilol No carvedilol [facility] 12.5 mg 12.5 mg 12.5 mg Family [...] - TWICE DAILY cinacalcet cinacalcet No cinacalcet [facility] 30 mg 30 mg 30 mg Family tablet TAKE tablet TAKE tablet Practic 1 TABLET BY 1 TABLET BY TAKE 1 e MOUTH TWICE MOUTH TWICE TABLET BY A DAY A DAY MOUTH TWICE A DAY clonidine clonidine clonidine [facility] HCl 0.1 mg HCl 0.1 mg HCl [...] DIRECTED DIRECTED DIRECTED ezetimibe ezetimibe No ezetimibe [facility] 10 mg 10 mg 10 mg Family tablet TAKE tablet TAKE tablet Practic 1 TABLET BY 1 TABLET BY TAKE 1 e MOUTH EVERY MOUTH EVERY TABLET BY DAY DAY MOUTH EVERY DAY fluconazole fluconazole No fluconazol [facility] 150 mg 150 mg e 150 mg Family tablet 1 tablet 1 tablet 1 Pra ctic TABLET TABLET TABLET e ORALLY NOW, ORALLY NOW, ORALLY THEN AGAIN THEN AGAIN NOW, THEN IN 72 HOURS IN 72 HOURS AGAIN IN 4 DAY(S) 4 DAY(S) 72 HOURS 4 DAY(S) furosemide furosemide No furosemide [facility] 20 mg 20 mg 20 mg Family tablet TAKE tablet TAKE tablet Practic 1 TABLET BY 1 TABLET BY TAKE 1 e MOUTH EVERY MOUTH EVERY TABLET BY DAY DAY MOUTH EVERY DAY gabapentin gabapentin No gabapentin [facility] 300 mg 300 mg 300 mg Family capsule capsule capsule Practi c TAKE 1 TAKE 1 TAKE 1 e CAPSULE BY CAPSULE BY CAPSULE BY MOUTH THREE MOUTH THREE MOUTH TIMES A DAY TIMES A DAY THREE TIMES A DAY hydralazine hydralazine No hydralazin [facility] 25 mg 25 mg e 25 mg Family tablet TAKE tablet TAKE tablet Practic 1 TABLET BY 1 TABLET BY TAKE 1 e MOUTH TWICE MOUTH TWICE TABLET BY A DAY A DAY MOUTH TWICE A DAY hydrocodone hydrocodone No hydrocodon [facility] 5 5 e 5 Family mg-acetamin mg-acetamin mg-acetami Practic ophen 325 ophen 325 nophen 325 e mg tablet mg tablet mg tablet TAKE 1 TAKE 1 TAKE 1 TABLET BY TABLET BY TABLET BY MOUTH EVERY MOUTH EVERY MOUTH 6 HOURS 6 HOURS EVERY 6 NEEDED NEEDED HOURS NEEDED Darbytatatoeto Darbytadueto No [facility] XR 5 XR 5 XR 5 Family mg-1,000 mg mg-1,000 mg mg-1,000 Practic tablet, tablet, mg tablet, e extended extended extended release release release TAKE 1 TAKE 1 TAKE 1 TABLET BY TABLET BY TABLET BY MOUTH EVERY MOUTH EVERY MOUTH DAY IN THE DAY IN THE EVERY DAY MORNING MORNING IN THE MORNING lisinopril lisinopril No lisinopril [facility] 20 mg 20 mg 20 mg Family tablet TAKE tablet TAKE tablet Practic 2 TABLETS 2 TABLETS TAKE 2 e BY MOUTH BY MOUTH TABLETS BY EVERY DAY EVERY DAY MOUTH EVERY DAY Livalo 4 mg Livalo 4 mg No Livalo 4 [facility] tablet TAKE tablet TAKE mg tablet Family [...] tic ointment e nifedipine nifedipine No nifedipine [facility] ER 30 mg ER 30 mg ER [...] DIRECTED INCREASE DIRECTED valsartan valsartan No valsartan [facility] 320 mg 320 mg 320 mg Family tablet TAKE tablet TAKE tablet Practic 1 TABLET BY 1 TABLET BY TAKE 1 e MOUTH EVERY MOUTH EVERY TABLET BY DAY DAY MOUTH EVERY DAY Vitamin D3 Vitamin D3 No Vitamin D3 [facility] Accu-Chek Accu-Chek No Accu-Chek [facility] Fior Meter Fior Meter Fior Family Meter Practic e Accu-Chek Accu-Chek No Accu-Chek [facility] Fior Plus Fior Plus Fior Plus Family test strips test strips test P ractic TEST 3 TEST 3 strips e TIMES A DAY TIMES A DAY TEST 3 DIRECTED DIRECTED TIMES A DAY DIRECTED Accu-Chek Accu-Chek No Accu-Chek [facility] Fastclix Fastclix Fastclix Fam gail Lancet Drum Lancet Drum Lancet Practic USE USE Drum USE e DIRECTED 3 DIRECTED 3 TIMES DAILY TIMES DAILY DIRECTED 3 TIMES DAILY Accu-Chek Accu-Chek No Accu-Chek [facility] FastClix FastClix FastClix Fam gail Lancing Lancing Lancing Practi c Device Device Device e acetaminoph acetaminoph No acetaminop [facility] en 300 en 300 hen 300 Family mg-codeine mg-codeine mg-codeine Practic 60 mg 60 mg 60 mg e tablet TAKE tablet TAKE tablet 1 TABLET BY 1 TABLET BY TAKE 1 MOUTH EVERY MOUTH EVERY TABLET BY 6 HOURS 6 HOURS MOUTH NEEDED NEEDED EVERY 6 HOURS NEEDED acyclovir acyclovir No acyclovir [facility] 800 mg 800 mg 800 mg Family tablet tablet tablet Practic e alprazolam alprazolam No alprazolam [facility] 0.25 mg 0.25 mg 0.25 mg Family [...] DAILY TIMES DAILY budesonide budesonide No budesonide [facility] 1 mg/2 mL 1 mg/2 mL 1 [...] TO TWICE DAILY carvedilol carvedilol No carvedilol [facility] 12.5 mg 12.5 mg 12.5 mg Family [...] - TWICE DAILY cinacalcet cinacalcet No cinacalcet [facility] 30 mg 30 mg 30 mg Family tablet TAKE tablet TAKE tablet Practic 1 TABLET BY 1 TABLET BY TAKE 1 e MOUTH TWICE MOUTH TWICE TABLET BY A DAY A DAY MOUTH TWICE A DAY clonidine clonidine No clonidine [facility] HCl 0.1 mg HCl 0.1 mg HCl [...] DIRECTED DIRECTED DIRECTED ezetimibe ezetimibe No ezetimibe [facility] 10 mg 10 mg 10 mg Family tablet TAKE tablet TAKE tablet Practic 1 TABLET BY 1 TABLET BY TAKE 1 e MOUTH EVERY MOUTH EVERY TABLET BY DAY DAY MOUTH EVERY DAY fluconazole fluconazole No fluconazol [facility] 150 mg 150 mg e 150 mg Family tablet 1 tablet 1 tablet 1 Pra ctic TABLET TABLET TABLET e ORALLY NOW, ORALLY NOW, ORALLY THEN AGAIN THEN AGAIN NOW, THEN IN 72 HOURS IN 72 HOURS AGAIN IN 4 DAY(S) 4 DAY(S) 72 HOURS 4 DAY(S) furosemide furosemide No furosemide [facility] 20 mg 20 mg 20 mg Family tablet TAKE tablet TAKE tablet Practic 1 TABLET BY 1 TABLET BY TAKE 1 e MOUTH EVERY MOUTH EVERY TABLET BY DAY DAY MOUTH EVERY DAY hydralazine hydralazine No hydralazin [facility] 25 mg 25 mg e 25 mg Family tablet TAKE tablet TAKE tablet Practic 1 TABLET BY 1 TABLET BY TAKE 1 e MOUTH THREE MOUTH THREE TABLET BY TIMES A DAY TIMES A DAY MOUTH THREE TIMES A DAY hydrocodone hydrocodone No [facility] 5 5 e 5 Family mg-acetamin mg-acetamin mg-acetami Practic ophen 325 ophen 325 nophen 325 e mg tablet mg tablet mg tablet TAKE 1 TAKE 1 TAKE 1 TABLET BY TABLET BY TABLET BY MOUTH EVERY MOUTH EVERY MOUTH 6 HOURS 6 HOURS EVERY 6 NEEDED NEEDED HOURS NEEDED hydrocodone hydrocodone No [facility] 7.5 7.5 e 7.5 Family mg-acetamin mg-acetamin mg-acetami Practic ophen 325 ophen 325 nophen 325 e mg tablet mg tablet mg tablet TAKE 1 TAKE 1 TAKE 1 TABLET BY TABLET BY TABLET BY MOUTH EVERY MOUTH EVERY MOUTH 8 HOURS 8 HOURS EVERY 8 NEEDED NEEDED HOURS NEEDED [facility] [address] [facility] XR 5 XR 5 XR 5 [...] for 90 days. lisinopril lisinopril No lisinopril [facility] 20 mg 20 mg 20 mg Family [...] 50 TDD 50 nystatin-tr nystatin-tr No nystatin-t [facility] iainolone iamcinolone riainolo Family 100,000 100,000 ne [...] FOR 30 DAYS omeprazole omeprazole No omeprazole [facility] 20 mg 20 mg 20 mg Family capsule,del capsule,del capsule,de Practic ayed ayed layed e release 1 release 1 release 1 CAPSULE BY CAPSULE BY CAPSULE BY MOUTH MOUTH MOUTH DAILY, 30 DAILY, 30 DAILY, 30 MINUTES MINUTES MINUTES BEFORE BEFORE BEFORE BREAKFAST BREAKFAST BREAKFAST pregabalin pregabalin No 1capsul TID pregabalin [facility] 50 mg 50 mg e(s) 50 mg Family capsule capsule capsule Practi c Take 1 Take 1 Take 1 e capsule 3 capsule 3 capsule 3 times a day times a day times a by oral by oral day by route. route. oral route. pregabalin pregabalin No pregabalin [facility] 75 mg 75 mg 75 mg Family [...] FOR 30 DAYS Soliqua Soliqua No Soliqua Vill e 100/33 100 100/33 100 100/33 100 [...] directed: TDD 60 valsartan valsartan No valsartan [facility] 320 mg 320 mg 320 mg Family tablet TAKE tablet TAKE tablet Practic 1 TABLET BY 1 TABLET BY TAKE 1 e MOUTH EVERY MOUTH EVERY TABLET BY DAY DAY MOUTH EVERY DAY Vitamin D3 Vitamin D3 No Vitamin D3 [facility] Practic e Immunizations Ordered Filled Immunization Date Status Comments [facility] e Immunization Name Name COVID-19, mRNA, COVID-19, mRNA, 2022-03-23 Completed [facility] LNP-S, bivalent LNP-S, bivalent 00:00:00 Prac alaina booster, PF, 30 booster, PF, 30 mcg/0.3 mL dose mcg/0.3 mL dose ([employer]) - ([employer] (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[employer]savers)) - ML ML COVID-19, mRNA, COVID-19, mRNA, [...] - ML ML PFIZER COVID-19 2020-07-15 Completed [facility] VACCINATION 00:00:00 [facility] PFIZER COVID-19 2020-07-15 Completed [facility] MRNA VACCINATION 00:00:00 [facility] PFIZER COVID-19 2020-07-15 Completed [facility] VACC[facility] 00:00:00 Hospital PFIZER COVID-19 2020-07-15 Completed [facility] M[facility] VACCINATION 00:00:00 [facility] PFIZER COVID-19 2020-07-15 Completed [facility] VACCINATION 00:00:00 [facility] COVID-19, mRNA, COVID-19, mRNA, 2020-07-15 Completed [facility] LNP-S, PF, 30 LNP-S, PF, 30 00:00:00 Sports M edicine mcg/0.3 mL dose mcg/0.3 mL dose (Pfizer-BioNTech) (Pfizer-BioNT[employer]) COVID-19, mRNA, COVID-19, mRNA, 2020-06-23 Completed [facility] LNP-S, PF, 30 LNP-S, PF, 30 00:00:00 Practice mcg/0.3 mL dose mcg/0.3 mL dose (Pfizer-BioNTech) - (Pfizer-BioNTech) - ML ML PFIZER COVID-19 2020-06-23 Completed [facility] VACCINATION 00:00:00 [facility] PFIZER COVID-19 2020-06-23 Completed [facility] VACCINATION 00:00:00 [facility] PFIZER COVID-19 2020-06-23 Completed [facility] M[facility] VACCINATION 00:00:00 [facility] PFIZER COVID-19 2020-06-23 Completed [facility] MRNA VACCINATION 00:00:00 [facility] PFIZER COVID-19 2020-06-23 Completed [facility] MRNA VACCINATION 00:00:00 [facility] COVID-19, mRNA, COVID-19, mRNA, 2020-06-23 Completed [facility] LNP-S, PF, 30 LNP-S, PF, 30 00:00:00 Sports M edicine mcg/0.3 mL dose mcg/0.3 mL dose (Pfizer[employer]BioNT[employer]) (Pfizer-BioNTech) influenza, influenza, 2020-03-27 Completed [facility] injectable, injectable, 00:00:00 Practice quadrivalent quadrivalent influenza, influenza, 2020-03-27 Completed [facility] injectable, injectable, 00:00:00 Practice quadrivalent quadrivalent influenza, influenza, 2020-03-27 Completed [facility] Family injectable, injectable, 00:00:00 Practice quadrivalent quadrivalent influenza, influenza, 2020-03-27 Completed [facility] Family injectable, injectable, 00:00:00 Practice quadrivalent quadrivalent [...] 00:00:00 Practice Body height 2022-12-13 165.1 cm [facility] 20:07:00 [facility] Body weight 2022-12-13 99.791 kg [facility] 20:07:00 [facility] BMI 2022-12-13 36.61 kg/m2 [facility] 20:07:00 [facility] Systolic blood 2020-01-26 144 mm[Hg] Location: [facility] Physicia ns pressure 14:56:00 Position: Sitting Diastolic blood 2020-01-26 66 mm[Hg] Location: [facility] Physici ans pressure 14:56:00 Position: Sitting [...] cians 14:56:00 Temperature Oral 2016-02-14 97.5 F Elvira rae (F) 21:00:00 Heart Rate 2016-02-14 Elvira Ramos n 21:00:00 Respitory Rate 2016-02-14 Elvira Rodriguez robert 21:00:00 Systolic (mm Hg) 2016-02-14 [facility] [...] 09:00:00 Temperature Oral 2016-01-19 97.3 F [facility] (F) 09:00:00 BMI Calculated 2016-01-11 [facility] 22:27:00 Weight 2016-01-11 [facility] n 22:27:00 Height 2016-01-11 165.1 cm [facility] 22:27:00 Respitory Rate 2012-10-06 [facility] 16:00:00 Systolic (mm Hg) 2012-10-06 [facility] 16:00:00 Diastolic (mm Hg) 2012-10-06 [facility] 16:00:00 Respitory Rate 2012-10-06 [facility] 15:00:00 Systolic (mm Hg) 2012-10-06 [facility] 15:00:00 Diastolic (mm Hg) 2012-10-06 [facility] 15:00:00 Systolic (mm Hg) 2012-10-06 [facility] 14:00:00 Diastolic (mm Hg) 2012-10-06 [facility] 14:00:00 Respitory Rate 2012-10-06 [facility] 14:00:00 Temperature Oral 2012-10-06 96.3 F [facility] (F) 08:33:00 Temperature Oral 2012-10-06 97.9 [...] LIPID PANEL 2022-09-26 00:00:00 Provider, Not In [facility] XR, shoulder, 2 or more 2022-09-18 00:00:00 [facility] Orthopedic view Sports Medicine XR, knee, 3 view 2022-09-18 00:00:00 [facility] EXTERNAL PROVIDER 2022-08-28 05:01:00 [facility] ASSIGNMENT OF BENEFITS 2022-08-04 15:37:10 Doctor Unassigned, No [facility] Name Medical Branch PHYSICIAN ORDERS 2022-07-25 06:01:00 Doctor Unassigned, No Unive [facility] Medical Branch XR, hip + pelvis, 2022-03-09 00:00:00 Arlin Shultz hopedic unilateral, 4 or more Sports Med icine view Back Surgery 2016-01-17 00:00:00 [facility] Chas lester Practice Knee Replacement 2014-08-16 00:00:00 [facility] Durga reynolds Practice Operation on Neck 2012-09-16 00:00:00 [facility] Gustavo lanza Practice Repair of Perforated 2012-03-18 00:00:00 [facility] Colon Practice Colonoscopy 2010-06-18 00:00:00 [facility] Chas lester Practice Operation <sup>1</sup> [facility] Cervical discectomy [facility] Knee [facility] Luke replacement<sup>1</sup> Operation<sup>2</sup> [facility] Plan of Care Planned Activity Planned Date Details Comments Source Future Scheduled Test 2023-01-17 SHINGLES VACCINES (1 [facility] 15:59:24 of 2) [code = SHINGLES VACCINES (1 of 2)] Future Scheduled Test 2023-01-17 COVID-19 VACCINE (4 - [facility] 15:59:24 Pfizer series) [code = COVID-19 VACCINE (4 - Pfizer series)] Future Scheduled Test 2023-01-17 65+ PNEUMOCOCCAL [facility] 15:59:24 VACCINE (2 - PCV) [code = 65+ PNEUMOCOCCAL VACCINE (2 - PCV)] Future Scheduled Test 2023-01-17 INFLUENZA VACCINE [facility] 15:59:24 [code = INFLUENZA VACCINE] Future Scheduled Test 2023-01-12 SHINGLES VACCINES (1 [facility] 14:53:49 of 2) [code = SHINGLES VACCINES (1 of 2)] Future Scheduled Test 2023-01-12 COVID-19 VACCINE (4 - [facility] 14:53:49 Pfizer series) [code = COVID-19 VACCINE (4 - Pfizer series)] Future Scheduled Test 2023-01-12 65+ PNEUMOCOCCAL [facility] 14:53:49 VACCINE (2 - PCV) [code = 65+ PNEUMOCOCCAL VACCINE (2 - PCV)] Future Scheduled Test 2023-01-12 INFLUENZA VACCINE [facility] 14:53:49 [code = INFLUENZA VACCINE] Future Scheduled Test 2022-12-16 SHINGLES VACCINES (1 [facility] 12:11:42 of 2) [code = SHINGLES VACCINES (1 of 2)] Future Scheduled Test 2022-12-16 COVID-19 VACCINE (4 [facility] 12:11:42 Pfizer series) [code = COVID-19 VACCINE (4 - Pfizer series)] Future Scheduled Test 2022-12-16 65+ PNEUMOCOCCAL [facility] 12:11:42 VACCINE (2 - PCV) [code = 65+ PNEUMOCOCCAL VACCINE (2 - PCV)] Future Scheduled Test 2022-12-16 INFLUENZA VACCINE [facility] 12:11:42 [code = INFLUENZA VACCINE] Diagnostic Test 2022-11-24 glucose, fingerstick, [facility] Pending 00:00:00 blood [code = Practice glucose, fingerstick, blood] Future Scheduled Test 2022-09-07 SHINGLES VACCINES (1 [facility] 11:04:32 of 2) [code = SHINGLES VACCINES (1 of 2)] Future Scheduled Test 2022-09-07 COVID-19 VACCINE (3 - [facility] 11:04:32 Booster for Pfizer series) [code = COVID-19 VACCINE (3 - Booster for Pfizer series)] Future Scheduled Test 2022-09-07 INFLUENZA VACCINE [facility] 11:04:32 [code = INFLUENZA VACCINE] Future Scheduled Test 2022-09-07 65+ PNEUMOCOCCAL [facility] 11:04:32 VACCINE (2 - PCV) [code = 65+ PNEUMOCOCCAL VACCINE (2 - PCV)] Future Scheduled Test 2022-07-13 SHINGLES VACCINES (1 [facility] 16:05:49 of 2) [code = SHINGLES VACCINES (1 of 2)] Future Scheduled Test 2022-07-13 COVID-19 VACCINE (3 - [facility] 16:05:49 Booster for Pfizer series) [code = COVID-19 VACCINE (3 - Booster for Pfizer series)] Future Scheduled Test 2022-07-13 INFLUENZA VACCINE [facility] 16:05:49 [code = INFLUENZA VACCINE] Future Scheduled Test 2022-07-13 65+ PNEUMOCOCCAL [facility] 16:05:49 VACCINE (2 - PCV) [code = 65+ PNEUMOCOCCAL VACCINE (2 - PCV)] Future Appointment 2023-05-26 Carson Sheldon, [id number] [facility] Family 00:00:[address] Practice [address], [place] [address] Future Appointment 2023-05-25 Santi Patton [facility] Family 10:45:[address] Practice [address], [place] [address] Instructions [facility] Encounters Start End Encounter Admission Attending Care Care Encounter Source Date/Time Date/Time Type Type Clinicians Facility Department ID 2022-11-21 Outpatient [facility] [id number] [place] 11:59:[address] [place] [address] 2020-10-23 Outpatient ISMA, [facility] [id number] [place] 03:35:09 [facility] 2023-01-17 2023-01-17 Outpatient FOG_Mehlhof AOSM AO [id number]- Arlin 00:00:00 00:00:00 Mary [id number] Orth ope dic Sports Medicin e 2023-01-17 2023-01-17 Outpatient FOG_Mehlhof AOSM AO [id number] 6 Arlin 00:00:00 00:00:00 Mary [id number] Orth ope dic Sports Medicin e 2022-12-13 2022-12-13 Procedure Frank, 1.2.840.1 [id number] [id number] Methodi 15:15:00 16:47:44 visit Alex [id number] 430 [facility] 3.430.2.7 Hospit a .3.086495 l .8 2022-12-13 2022-12-13 Procedure Frank, 1.2.840.1 [id number] Methodi 15:15:00 16:47:44 visit Alex [address]777.1.[address] [facility] 3.430.2.7 Hospit a .3.610204 l .8 2022-11-24 2022-11-24 Outpatient Daniel_T VFP VFP [id number] [address] [place] [address] 00:00:00 00:00:00 [id number] Family Practic e 2022-11-24 2022-11-24 Outpatient Daniel_T VFP VFP [id number] [address] [place] [address] 00:00:00 00:00:00 [id number] Family Practic e 2022-11-24 2022-11-24 Carson VFP [place] - [id number] V illage 00:00:00 00:00:00 [facility] Family SheldonCharity - Pracedin yousif MD: [id number] [place] - e Shadow VM_HOU_[facility], [address], [place] [address] , Ph. 2022-10-25 2022-10-25 Outpatient Daniel_T VFP VFP [id number] [address] [place] [address] 00:00:00 00:00:00 [id number] Family Practic e 2022-10-25 2022-10-25 Outpatient Daniel_T VFP VFP [id number] [address] [place] [address] 00:00:00 00:00:00 [id number] Family Practic e 2022-09-26 2022-09-26 Orders Provider, 1.2.840.1 [id number] Methodi 00:00:00 00:00:00 Only [place] [address].1.[address] 3.430.2.7 Hospit a .3.557602 l .8 2022-09-26 2022-09-26 Telephone Fidencio, 1.2.840.1 [id number] 21 [id number] Methodi 00:00:00 00:00:[address] 3.430.2.7 Hospit a .3.963091 l .8 2022-09-262022-09-26 Telephone Fidencio, 1.2.840.1 [id number] 21 [id number] Methodi 00:00:00 00:00:[address] 3.430.2.7 Hospit a .3.834060 l .8 2022-09-26 2022-09-26 Orders Provider, 1.2.840.1 [id number] 2100 [id number] Methodi 00:00:00 00:00:00 Only [place] [address].1.[address] System 3.430.2.7 Hospit a .3.248452 l .8 2022-09-20 2022-09-20 Outpatient FOG_Elkousy AOSM AOSM [id number] Arlin 00:00:00 00:00:00 _Gato 114556 Orth ope dic Sports Medicin e 2022-09-20 2022-09-20 Outpatient FOG_Elkousy AOSM AOSM [id number] Arlin 00:00:00 00:00:00 _Gato 117440 Orth ope dic Sports Medicin e 2022-09-18 2022-09-18 Outpatient FOG_Elkousy AOSM AOSM [id number] Arlin 00:00:00 00:00:00 _Gato [id number] Orth ope dic Sports Medicin e 2022-09-18 2022-09-18 Vaibhav Wm AOSM [place] - Ortho [id number] Arlin 00:00:00 00:00:00 Laura Tello MD: [id number] FOG_Ofc dic [facility], [place] [address] , Ph. [phone] 2022-09-06 2022-09-06 Telephone Fidencio 1.2.840.1 [id number] Methodi 00:00:00 00:00:[address] 3.430.2.7 Hospit a .3.694618 l .8 2022-09-06 2022-09-06 Giovanna Nicolas 1.2.840.1 [id number] 21 [id number] Methodi 00:00:00 00:00:[address] 3.430.2.7 Hospit a .3.860858 l .8 2022-08-28 2022-08-28 Orders Doctor NORMA [id number] Univers 00:00:00 00:00:00 Only Unassigned, GLEN [id number] [facility] [facility] [id number] Kwame as [phone] [address] 2022-08-24 2022-08-24 Outpatient FOG_Elkousy AOSM AOSM [id number] Arlin 00:00:00 00:00:00 _Gato [id number] Orth ope dic Sports Medicin e 2022-08-22 2022-08-22 Outpatient Daniel_T VFP VFP [id number] 20 [facility] 00:00:00 00:00:00 [id number] Family Practic e 2022-08-22 2022-08-22 Outpatient Daniel_T VFP VFP [id number] [address] [place] [address] 00:00:00 00:00:00 [id number] Family Practic e 2022-08-22 2022-08-22 Outpatient VFP VFP [id number] [address] 00:00:00 00:00:00 [id number] Family Practic e 2022-08-22 2022-08-22 Carson VFP [place] - [id number] V illage 00:00:00 00:00:00 [facility] Charity Tam - Pracedin yousif MD: [id number] [place] - e Shadow [facility], [address], [place] [address] , Ph. 2022-08-21 2022-08-21 Telephone VALDEZ Montenegro [id number] 10 [id number] [facility] 00:00:00 00:00:00 Chucho [facility] [id number] it y of [place] 4.2.7.2.686 Kwame as KRISH?BLEA [phone] Az dical GERALD [address] [place], [place] [address] MEDICAL OFFICE BUILDING 2022-08-04 2022-08-04 [facility] 1.2.905.034 [id number] Univers 10:00:00 10:21:24 Visit Chucho [facility] 350.1.13.10 it y of [place] 4.2.7.2.686 Kwame as KRISH?BLEA [phone] Az dical [address] MEDICAL OFFICE [facility] 2022-08-04 2022-08-04 [facility]patient [facility] [id number] Univers 10:00:00 10:21:24 CHUCHO ity of [facility] 2022-08-04 2022-08-04 Orders Doctor NORMA 1.2.840.114 [id number] Univers 00:00:00 00:00:00 Only Unassigned, GLEN 350.1.13.10 ity of [place] [facility] 4.2.7.2.686 Kwame as [phone] [address] 2022-07-29 2022-07-29 Outpatient FOG_Elkousy AOSM AOSM 623 2176-20 Arlin 00:00:00 00:00:00 _Gato [id number] Orth ope dic Sports Medicin e 2022-07-25 2022-07-25 Orders Doctor NORMA 1.2.840.114 [id number] Univers 00:00:00 00:00:00 Only Unassigned, GLEN 350.1.13.10 it[place] [facility] 4.2.7.2.686 Kwame as [id number] [address] 2022-07-20 2022-07-20 Refill [place], 1.2.840.1 [id number] 1697 Methodi 00:00:00 00:00:[address] 3.430.2.7 Hospit a .3.248489 l .8 2022-07-20 2022-07-20 Refill [place], 1.2.840.1 [id number] 1867 Methodi 00:00:00 00:00:[address] 3.430.2.7 Hospit a .3.608178 l .8 2022-07-13 2022-07-13 Outpatient Yoselin MONTENEGRO, [facility] NUT [id number] Univers 00:00:00 00:00:00 CHUCHO wally [facility] 2022-07-05 2022-07-05 Refill [place], 1.2.840.1 [id number] 1216 Methodi 00:00:00 00:00:00 Lora TorresNick [address]39.1.[address] 3.430.2.7 Hospit a .3.231056 l .8 2022-07-05 2022-07-05 Refill [place], 1.2.840.1 [id number] 8713 Methodi 00:00:00 00:00:[address] 3.430.2.7 Hospit a .3.618285 l .8 2022-06-11 2022-06-11 Refill [place], 1.2.840.1 [id number] 6563 Methodi 00:00:00 00:00:[address] 3.430.2.7 Hospit a .3.387254 l .8 2022-06-11 2022-06-11 Refill [place], 1.2.840.1 [id number] 9917 Methodi 00:00:00 00:00:[address] 3.430.2.7 Hospit a .3.346063 l .8 2022-05-23 2022-05-23 Outpatient Daniel_T VFP VFP [id number] [address] [place] [address] 00:00:00 00:00:00 [id number] Family Practic e 2022-05-23 2022-05-23 Outpatient Daniel_T VFP VFP [id number] [address] [place] [address] 00:00:00 00:00:00 [id number] Family Practic e 2022-05-23 2022-05-23 Carson VFP [place] - [id number] V illage 00:00:00 00:00:00 [facility] SheldonCharity - Matteo yousif MD: [id number] [place] - e Shadow [facility], [address], [place] [address] , Ph. 2022-05-09 2022-05-09 Orders [place], 1.2.840.1 [id number] 5466 Methodi 00:00:00 00:00:00 Only Lora Yee 44824.1.[address] 3.430.2.7 Hospit a .3.386621 l .8 2022-05-09 2022-05-09 Orders [place], 1.2.840.1 [id number] 6349 Methodi 00:00:00 00:00:00 Only Lora Yee 55079.1.[address] 3.430.2.7 Hospit a .3.266194 l .8 2022-05-07 2022-05-07 Refill [place], 1.2.840.1 [id number] 8799 Methodi 00:00:00 00:00:[address] L[address] Torres[address]91.1.[address] 3.430.2.7 Hospit a .3.585349 l .8 2022-05-07 2022-05-07 Refill [place], 1.2.840.1 [id number] 8860 Methodi 00:00:00 00:00:[address] 3.430.2.7 Hospit a .3.192003 l .8 2022-04-17 2022-04-17 Outpatient Pito_T VFP [facility] [id number] [address] [place] [address] 00:00:00 00:00:00 [id number] Family Practic e 2022-04-17 2022-04-17 Carson VFP [place] - [id number] V illage 00:00:00 00:00:00 [facility] ValenzuelaelCharity - Pracedin yousif MD: [id number] [place] - e Shadow VM_HOU_Shad Cachil Dehe ow Cachil Dehe [facility], [address], [place] [address] , Ph. 2022-04-14 2022-04-14 Outpatient Pito_T VFP [facility] [id number] [address] [place] [address] 00:00:00 00:00:00 [id number] Family Practic e 2022-04-10 2022-04-10 Orders [place], 1.2.840.1 [id number] 9405 Methodi 00:00:00 00:00:00 Only Lora Yee 14578.1.[address] 3.430.2.7 Hospit a .3.906068 l .8 2022-04-10 2022-04-10 Orders [place], 1.2.840.1 [id number] 6061 Methodi 00:00:00 00:00:00 Only Lora Yee 68439.1.[address] 3.430.2.7 Hospit a .3.525091 l .8 2022-04-09 2022-04-09 Refill [place], 1.2.840.1 [id number] 029817 9840 Methodi 00:00:00 00:00:[address] 3.430.2.7 Hospit a .3.449603 l .8 2022-04-09 2022-04-09 Refill [place], 1.2.840.1 [id number] 3364 Methodi 00:00:00 00:00:[address] 3.430.2.7 Hospit a .3.955680 l .8 2022-03-09 2022-03-09 Outpatient FOG_Elkousy AOSM AOSM 623 6-20 Arlin 00:00:00 00:00:00 _Gato 745316 Orth ope dic Sports Medicin e 2022-03-09 2022-03-09 Nely Torres AOSM [place] - Ortho 2021 921 Arlin 00:00:00 00:00:00 Laura Andrews MD: [id number] FOG_Ofc dic [facility], [place] [address] , Ph. [phone] 2022-03-06 2022-03-06 Outpatient FOG_Elkousy AOSM AOSM 623 [id number] Arlin 00:00:00 00:00:00 _Gato 789255 Orth ope dic Sports Medicin e 2022-02-16 2022-02-16 Outpatient Daniel_T VFP VFP [id number] [address] [place] [address] 00:00:00 00:00:00 [id number] Family Practic e 2022-02-16 2022-02-16 Outpatient VFP VFP [id number] [address] 00:00:00 00:00:00 664244 Family Practic e 2022-02-16 2022-02-16 Outpatient VFP VFP [id number] [address] 00:00:00 00:00:00 [id number] Family Practic e 2022-02-06 2022-02-06 Outpatient Daniel_T VFP VFP [id number] [address] [place] [address] 00:00:00 00:00:00 [id number] Family Practic e 2022-02-01 2022-02-01 Outpatient Daniel_T VFP VFP [id number] [address] [place] [address] 00:00:00 00:00:00 [id number] Family Practic e 2022-02-01 2022-02-01 Carson VFP [place] - [id number] V illage 00:00:00 00:00:00 [facility]ldon, Medical - Pracedin yousif MD: [id number] VM_JUAN M_Roly e Shadow [facility], [address], [place] [address] , Ph. 2022-01-25 2022-01-25 Outpatient Daniel_T VFP VFP [id number] [address] [place] [address] 00:00:00 00:00:00 [id number] Family Practic e 2022-01-04 2022-01-04 Outpatient Daniel_T VFP VFP [id number] [address] [place] [address] 00:00:00 00:00:00 [id number] Family Practic e 2021-12-29 2021-12-29 Outpatient FOG_Elkousy AOSM AOSM 623 6-20 Arlin 02:36:00 02:36:00 _Gato 488853 Orth ope dic Sports Medicin e 2021-12-29 2021-12-29 Houtan A AOSM [place] - Ortho 14 Arlin 00:00:00 00:00:00 MD Jewel: Laura Martinez [address] FOG_Ofc dic [facility], [place] [address] , Ph. [phone] 2021-12-29 2021-12-29 Outpatient GARFIELD Holloway AOSM [id number] 4-0 00:00:00 00:00:00 Roger Burk [id number] 2021-12-24 2021-12-24 Outpatient FOG_Elkousy AOSM AOSM 623 6- Arlin 02:19:00 02:19:00 _Gato 476188 Orth ope dic Sports Medicin e 2021-12-24 2021-12-24 Outpatient FOG_Elkousy AOSM AOSM 623 6- Arlin 02:19:00 02:19:00 _Gato 643170 Orth ope dic Sports Medicin e 2021-12-23 2021-12-23 Outpatient Pito_T VFP VFP [id number] 4-20 [facility] 10:31:00 10:31:00 [id number] Family Practic e 2021-12-23 2021-12-23 Carson VFP [place] - [id number] V illage 00:00:00 00:00:00 [facility] PitoCharity - Pracedin yousif MD: 54469 VM_HOU_Shanick e [facility], [address], [place] [address] , Ph. 2021-12-16 2021-12-16 Outpatient GRETA GalindoTO PAIN [id number] [facility] 10:15:00 10:15:00 [place] 06 [place] [facility] 2021-11-28 2021-11-28 Office MAGDALENA Wheeler 6400 1.2.784.023 8054 15012 [place] 10:30:00 10:50:33 Visit Joby JIANG 350.1.13.58 Health 9.2.7.2.686 [id number] 5 2021-11-28 2021-11-28 Outpatient FOG_Elkousy AOSM AOSM 623 6- Arlin 04:52:00 04:52:00 _Gato 418167 Orth ope dic Sports Medicin e 2021-11-24 2021-11-24 Outpatient FOG_Elkousy AOSM AOSM 623 2176 Arlin 11:55:00 11:55:00 _Gato 365288 Orth ope dic Sports Medicin e 2021-11-23 2021-11-23 Outpatient FOG_Elkousy AOSM AOSM 623 6 Arlin 01:50:00 01:50:00 _Gato 109994 Orth ope dic Sports Medicin e 2021-11-23 2021-11-23 Houtan Wm AOSM [place] - Ortho a 00:00:00 00:00:00 MD Jewel: Laura Martinez [address] [address] FOG_Ofc dic [place] [address], [place] [address] , Ph. [phone] 2021-11-23 2021-11-23 Outpatient GARFIELD Holloway AOSM [id number] 8-[id number] 00:00:00 00:00:00 Roger Burk [id number] 2021-11-23 2021-11-23 Telephone Whitley Bryson [facility] 1.2.840. 114 [id number] [place] 00:00:00 00:00:00 Whitley Bryson [place] 350.1.13.58 Health [place] 9.2.7.2.686 [facility] [id number] 2 2021-11-18 2021-11-18 Outpatient FOG_Elkousy AOSM AOSM 623 6 Arlin 12:41:00 12:41:00 _Gato 610424 Orth ope dic Sports Medicin e 2021-11-18 2021-11-18 Outpatient FOG_Elkousy AOSM AOSM 623 [id number] Arlin 12:41:00 12:41:00 _Gato 324032 Orth ope dic Sports Medicin e 2021-11-17 2021-11-17 Outpatient Daniel_T VFP VFP [id number] [address] [place] [address] 06:56:00 06:56:00 [id number] Family Practic e 2021-11-07 2021-11-07 Travel 1.2.840.1 1.2.482.432 1049 187165 Methodi 00:00:00 00:00:[address] 3.430.2.7 0.2.7.3.698 Ho spita .3.003208 084.8 l .8 2021-10-19 2021-10-19 Outpatient Daniel_T VFP VFP [id number] [address] [place] [address] 06:10:00 06:10:00 [id number] Family Practic e 2021-10-04 2021-10-04 Outpatient Daniel_T VFP VFP [id number] [address] [place] [address] 03:48:00 03:48:00 [id number] Family Practic e 2021-10-04 2021-10-04 Carson VFP [place] - [id number] V illage 00:00:00 00:00:00 [facility] Sheldon Medical - Practi nica WARD: 80716 ANDREIA_JUAN M_Roly e Shadow [facility], [address] [address] , Ph. 2021-08-26 2021-08-26 Outpatient Daniel_T VFP VFP [id number] [address] [place] [address] 08:52:00 08:52:00 [id number] Family Practic e 2021-08-09 2021-08-09 Outpatient Daniel_T VFP VFP [id number] [address] [place] [address] 12:16:00 12:16:00 [id number] Family Practic e 2021-08-04 2021-08-04 Outpatient Daniel_T VFP VFP [id number] [address] [place] [address] 03:46:00 03:46:00 [id number] Family Practic e 2021-08-04 2021-08-04 Carson VFP [place] - [id number] V illage 00:00:00 00:00:00 [facility] Sheldon Medical - Pracedin yousif MD: [id number] ANDREIA_JUAN M_Roly e Shadow ow [place] C[place]il Dehe [facility], [address] [address] , Ph. 2021-07-18 2021-07-18 Orders [place], 1.2.840.1 [id number] 4750 Methodi 00:00:00 00:00:00 Only Lora Yee 62179.1.[address] 3.430.2.7 Hospit a .3.005414 l .8 2021-07-15 2021-07-15 Refill [place], 1.2.840.1 [id number] [id number] 7210 Methodi 00:00:00 00:00:[address] 3.430.2.7 Hospit a .3.518927 l .8 2021-07-13 2021-07-13 Orders [place], 1.2.840.1 [id number] 7582 Methodi 00:00:00 00:00:00 Only Lora Yee 74156.1.[address] 3.430.2.7 Hospit a .3.721578 l .8 2021-07-13 2021-07-13 Refill [place], 1.2.840.1 [id number] 9999 Methodi 00:00:00 00:00:[address] 3.430.2.7 Hospit a .3.644579 l .8 2021-06-22 2021-06-22 Outpatient Daniel_T VFP VFP [id number] [address] [place] [address] 02:42:00 02:42:00 [id number] Family Practic e 2021-05-23 2021-05-23 Outpatient Daniel_T VFP VFP [id number] [address] [place] [address] 06:17:00 06:17:00 215474 Family Practic e 2021-05-23 2021-05-23 Outpatient Daniel_T VFP VFP [id number] [address] [place] [address] 06:17:00 06:17:00 216691 Family Practic e 2021-04-15 2021-04-15 Outpatient Daniel_T VFP VFP [id number] [address] [place] [address] 01:48:00 01:48:00 [id number] Family Practic e 2021-04-15 2021-04-15 Carson VFP [place] - [id number] V illage 00:00:00 00:00:00 [facility] Family Sheldon Medical - Pracedin yousif MD: 61608 ANDREIAHARRY_Roly aditi Shadow [facility], [address] [address] , Ph. 2021-02-24 2021-02-24 Outpatient Daniel_T VFP VFP [id number] [address] [place] [address] 03:30:00 03:30:00 [id number] Family Practic e 2021-01-22 2021-01-22 Outpatient Daniel_T VFP VFP [id number] [address] [place] [address] 09:37:00 09:37:00 [id number] Family Practic e 2021-01-20 2021-01-20 Outpatient Daniel_T VFP VFP [id number] [address] [place] [address] 06:26:00 06:26:00 [id number] Family Practic e 2021-01-20 2021-01-20 Carson VFP [place] - [id number] V illage 00:00:00 00:00:00 [facility] Sheldon Charity - Matteo yousif MD: 46549 Lizbeth pennington Shadow [facility], [address] [address] , Ph. 2020-11-13 2020-11-13 Outpatient Daniel_T VFP VFP [id number] [address] [place] [address] 02:42:00 02:42:00 [id number] Family Practic e 2020-11-13 2020-11-13 Outpatient Daniel_T VFP VFP [id number] [address] [place] [address] 02:42:00 02:42:00 [id number] Family Practic e 2020-11-13 2020-11-13 Outpatient Daniel_T VFP VFP [id number] [address] [place] [address] 02:42:00 02:42:00 [id number] Family Practic e 2020-11-13 2020-11-13 Outpatient Daniel_T VFP VFP [id number] [address] [place] [address] 02:42:00 02:42:00 [id number] Family Practic e 2020-10-15 2020-10-15 Outpatient Daniel_T VFP VFP [id number] [address] [place] [address] 02:19:00 02:19:00 [id number] Family Practic e 2020-10-14 2020-10-14 Outpatient Daniel_T VFP VFP [id number] [address] [place] [address] 11:20:00 11:20:00 [id number] Family Practic e 2020-10-14 2020-10-14 Carson VFP [place] - [id number] V illage 00:00:00 00:00:00 [facility] Sheldon Charity - Pracedin yousif MD: [id number] ANDREIA_JUAN M_Roly e Shadow [facility], [address] [address] , Ph. 2020-07-16 2020-07-16 Outpatient Daniel_T VFP VFP [id number] [address] [place] [address] 06:12:00 06:12:00 [id number] Family Practic e 2020-07-15 2020-07-15 Outpatient [facility] [id number] [address] [place] 00:00:00 00:00:[address] 2020-07-14 2020-07-14 Outpatient Daniel_T VFP VFP [id number] [address] [place] [address] 01:44:00 01:44:00 [id number] Family Practic e 2020-07-14 2020-07-14 Carson VFP [place] - [id number] V illage 00:00:00 00:00:00 [facility] Sheldon Charity - Pracedin yousif MD: 76532 RONNIE_Roly pennington Shadow [facility], [address] [address] , Ph. 2020-07-13 2020-07-13 Outpatient Daniel_T VFP VFP [id number] [address] [place] [address] 06:05:00 06:05:00 [id number] Family Practic e 2020-06-23 2020-06-23 Outpatient [facility] [id number] 026 [place] 00:00:00 00:00:[address] 2020-04-30 2020-04-30 Outpatient Daniel_T VFP VFP [id number] [address] [place] [address] 01:32:00 01:32:00 [id number] Family Practic e 2020-04-24 2020-04-24 Outpatient Daniel_T VFP VFP [id number] [facility] 03:48:00 03:48:00 Family Practic e 2020-04-14 2020-04-14 Outpatient Pito_T VFP VFP [id number] 20 [facility] 04:51:00 04:51:00 [id number] Family Practic e 2020-04-14 2020-04-14 Carson VFP [place] - [id number] V illage 00:00:00 00:00:00 [facility] PitoCharity - Pracedin yousif MD: 63372 VM_HOU_Nicolas e Shadow [facility] [address], [place] [address] , Ph. 2020-03-15 2020-03-15 Outpatient Pito_T VFP VFP [id number] [facility] 10:19:00 10:19:00 [id number] Family Practic e 2020-01-26 2020-01-26 Appointphoebe ASHBY [facility] [id number] [place] 15:15:00 15:15:00 t; MICHAEL ASHBY, [facility] Arm[facility] 2019-12-03 2019-12-03 Outpatient [facility] [id number] [address] [place] [address] 00:00:00 00:00:00 LORA [address] 2016-06-30 2016-06-30 Outpatient MHIE MHIE [id number] Memoria 13:00:00 13:00:00 09 sierra Butler 2016-06-30 2016-06-30 Outpatient MHIE MHIE [id number] Memoria 13:00:00 13:00:00 09 sierra Butler 2016-04-21 2016-04-21 Outpatient MHIE MHIE [id number] Memoria 13:30:00 13:30:00 07 sierra Butler 2016-04-21 2016-04-21 Outpatient MHIE MHIE [id number] Memoria 13:30:00 13:30:00 07 sierra Butler 2016-03-27 2016-03-27 Outpatient MHIE MHIE [id number] Memoria 11:30:00 11:30:00 08 sierra Butler 2016-03-27 2016-03-27 Outpatient MHIE MHIE [id number] Memoria 11:30:00 11:30:00 08 sierra Butler 2016-03-09 2016-03-09 Outpatient IE SUKUMAR [id number] Memoria 11:00:00 11:00:00 06 sierra Butler 2016-03-09 2016-03-09 Outpatient MHIE SUKUMAR [id number] Memoria 11:00:00 11:00:00 06 sierra Butler 2016-02-08 2016-02-15 Inpatient nullFlavo [facility] [id number] Memoria 15:51:00 01:30:00 r Luke 00 [facility] 2016-02-08 2016-02-15 Inpatient nullFlavo [facility] [id number] Memoria 15:51:00 01:30:00 r Luke 00 [facility] 2016-02-08 2016-02-14 Outpatient Riley Whyte [facility] [id number] 10:51:00 20:30:00 Jese 2016-02-08 2016-02-08 Outpatient LIBIA SUKUMAR [id number] Memoria 07:30:00 07:30:00 05 sierra Butler 2016-02-08 2016-02-08 Outpatient SUKUMAR SUKUMAR [id number] Memoria 07:30:00 07:30:00 05 sierra Butler 2016-01-11 2016-01-19 Inpatient nullFlavo [facility] [id number] Memoria 21:33:00 21:30:00 r Luke 08 [facility] 2016-01-11 2016-01-19 Inpatient nullFlavo [facility] [id number] Memoria 21:33:00 21:30:00 r Luke 08 [facility] 2016-01-11 2016-01-19 Outpatient Coreen [facility] [id number] 16:33:00 16:30:00 Jean Paul Quiroga 2016-01-17 2016-01-17 Outpatient LIBIA REZA [id number] Memoria 11:00:00 11:00:00 04 sierra Butler 2016-01-17 2016-01-17 Outpatient MHSUKUMAR REZA [id number] Memoria 11:00:00 11:00:00 04 sierra Butler 2016-01-11 2016-01-11 Pre Admit [facility]Flavo [facility] 63593 [id number] Memoria 04:00:00 04:00:00 yoselin esquivel [facility] 2016-01-11 2016-01-11 Pre Admit nullFlavo [facility] [id number] Memoria 04:00:00 04:00:00 yoselin Witt [facility] 2016-01-10 2016-01-10 Outpatient Ranjit Drew [facility] [id number] 23:00:00 23:00:00 Zhiheng Eduar 2015-12-15 2015-12-15 Outpatient MHIE MHIE [id number] Memoria 14:00:00 14:00:00 03 sierra Bear 2015-12-15 2015-12-15 Outpatient MHIE MHIE [id number] Memoria 14:00:00 14:00:00 03 sierra Luke 2015-12-15 2015-12-15 Outpatient MHIE MHIE [id number] Memoria 13:30:00 13:30:00 02 sierra Luke 2015-12-15 2015-12-15 Outpatient MHIE MHIE [id number] Memoria 13:30:00 13:30:00 02 sierra Luke 2015-12-15 2015-12-15 Outpatient MHIE MHIE [id number] Memoria 11:00:00 11:00:00 01 sierra Bear 2015-12-15 2015-12-15 Outpatient MHIE MHIE [id number] Memoria 11:00:00 11:00:00 01 sierra Butler 2015-12-02 2015-12-02 Outpatient MHIE MHIE [id number] Memoria 11:00:00 11:00:00 00 sierra Butler 2015-12-02 2015-12-02 Outpatient MHIE MHIE [id number] Memoria 11:00:00 11:00:00 00 sierra Bear 2014-03-25 2014-03-26 Outpt Diag nullFlavo [facility] [address]8043 [id number] Memoria 14:57:00 04:59:00 Services r Outpatient 04 l [facility] 2014-03-25 2014-03-26 Outpt Diag nullFlavo [facility] [id number] Memoria 14:57:00 04:59:00 Services r Outpatient 04 l [facility] 2014-03-25 2014-03-25 Outpatient William 2.16.840. 2.16.840.1. [id number] 09:57:00 23:59:00 Keron 1.470217. 698767.3.61 04 Gabbie 3.615.0.1 5.0.539 46 0194-04-02 2013-09-18 Outpt Diag Leonardoo [facility] [id number] Memoria 16:29:00 04:59:00 Services r Outpatient [id number] l Imaging 9 [facility] 2013-09-17 2013-09-18 Outpt Diag nullFlavo [facility] [id number] Memoria 16:29:00 04:59:00 Services r Outpatient [id number] l Imaging 9 [facility] 2013-09-17 2013-09-17 Outpatient William, 2.16.840. 2.16.840.1. [id number] 11:29:00 23:59:00 Keron 1.118358. [id number] 03 Gabbie 3.615.0.1 5.0.319 43 6261-04-18 2012-10-06 Inpatient nullFlavo [place] [id number] Memoria 08:38:00 12:00:00 r Medical 00 l [facility] 2012-10-03 2012-10-06 Inpatient nullFlavo [facility] [id number] Memoria 08:38:00 12:00:00 r Medical 00 [facility] Results Test Description Test Time Test Comments Results Result Comments Source Glucose [Mass/volume] in Capillary blood 2022-11-24 09:12:48 Test Item Value Reference Range Interpretation Comme nts Blood Glucose: mg/dl (test code = Blood Glucose: mg/dl) 158 [facility] Practice[facility] [Mass/volume] in Capillary [id number] 12:12:08 Test Item Value Reference Range Interpretation Comments Blood Glucose: mg/dl (test code = Blood 144 Glucose: mg/dl) [facility] PracticeGlucose [Mass/volume] in Capillary [id number] 11:16:24 Test Item Value Reference Range Interpretation Comments Blood Glucose: mg/dl (test code = Blood 286 Glucose: mg/dl) [facility] PracticeGlucose [Mass/volume] in Capillary [id number] 14:52:13 Test Item Value Reference Range Interpretation Comments Blood Glucose: mg/dl (test code = Blood 243 Glucose: mg/dl) [facility]- XR FLUORO FOR SPINE [id number] 18:07:00 [facility] : 1940 Sex: F Patient Name: AMANDA LOVE Unit No: [id number] EXAMS: CPT CODE: [id number] XR FLUORO FOR SPINE INJ 35423 LUMBAR EPIRADICULAR INJECTION REFERRAL PHYSICIAN: Dr. [place] [...] Electronically Signed by BRANDIN CLARK MD on 0 12/23/2021 at 1807 Reported and signed by: BRANDIN CLARK MD CC: Phillip Castaneda MD Technologist: MICHELL SOTO (RT.R) Transcribed D/ (1806) [facility] NAME: AMANDA LOVE [address] [facility] PHYS: Phillip Ladd MD [place], [place] [address] : 1940 AGE: 81 SEX: F LOC: CHON PHONE #: [phone] EXAM DATE: 12/16/2021 STATUS: [facility] FAX #: [phone] RAD #: [id number] D/C DT PAGE 1 Signed Report Patient Name: AMANDA LOVE Unit No: [id number] EXAMS: CPT CODE: [id number] XR FLUORO FOR SPINE INJ [id number] (Continued) Orig Print D/T: S: 12/23/2021 (1809) [facility] NAME: AMANDA LOVE [address] [facility] PHYS: Phillip Ladd MD [place], [place] [address] : 1940 AGE: 81 SEX: F LOC: CHON PHONE #: [phone] EXAM DATE: 12/16/2021 STATUS: [facility] FAX #: [phone] RAD #: [id number] D/C DT PAGE 2 Signed ReportGlucose [Mass/volume] in Capillary [id number] 08:37:03 Test Item Value Reference Range Interpretation Comments Blood Glucose: mg/dl (test code = Blood 220 Glucose: mg/dl) [id number] 14:01:00 Test Item Value Reference Range Interpretation Comments GLUBED (test code = GLUBED) 144 mg/dL 60-125 H [id number] 12:03:00 Test Item Value Reference Range Interpretation Comments GLUBED (test code = GLUBED) 138 mg/dL 60-125 H Hemoglobin A1c measurement device [id number] 14:11:19 Test Item Value Reference Range Interpretation Comments Hemoglobin A1C Fingerstick: (test code 7.2 = Hemoglobin A1C Fingerstick:) [facility] [[facility]/volume] in Capillary [id number] 14:04:17 Test Item Value Reference Range Interpretation Comments Blood Glucose: mg/dl (test code = Blood 190 Glucose: mg/dl) [facility] PracticeGl[facility] [Mass/volume] in Capillary [id number] 13:54:58 Test Item Value Reference Range Interpretation Comments Blood Glucose: mg/dl (test code = Blood 167 Glucose: mg/dl) [facility] [id number] 12:17:07 Test Item Value Reference Range Interpretation Comments Hemoglobin A1C Fingerstick: (test code 8.4 = Hemoglobin A1C Fingerstick:) [facility] [Mass/volume] in Capillary [id number] 12:14:41 Test Item Value Reference Range Interpretation Comments Blood Glucose: mg/dl (test code = Blood 212 Glucose: mg/dl) [facility]2016-08-01 09:05:00 Test Item Value Reference Range Interpretation Comments Magnesium Lvl (test code = Magnesium 1.8 1.8-2.4 Lvl) [facility] [id number] 09:05:00 Test Item Value Reference Range Interpretation Comments Phosphorus (test code = Phosphorus) 2.4 2.5-4.5 [facility] registracija vozila [id number] 09:05:00 Test Item Value Reference Range Interpretation Comments CO2 (test code = CO2) 30 24-32 [facility] [id number] 09:05:00 Test Item Value Reference Range Interpretation Comments Glucose Lvl (test code = Glucose Lvl) 240 70-99 [facility] [id number] 09:05:00 Test Item Value Reference Range Interpretation Comments Creatinine Lvl (test code = Creatinine 0.80 0.50-1.40 Lvl) [facility] [id number] 09:05:00 Test Item Value Reference Range Interpretation Comments BUN (test code = BUN) 20 7-22 [facility] [id number] 09:05:00 Test Item Value Reference Range Interpretation Comments eGFR (test code = eGFR) 73 [facility]2016-08-01 09:05:00 Test Item Value Reference Range Interpretation Comments Albumin Lvl (test code = Albumin Lvl) 2.8 3.5-5.0 [facility]2016-08-01 09:05:00 Test Item Value Reference Range Interpretation Comments Calcium Lvl (test code = Calcium Lvl) 10.5 8.5-10.5 [facility]2016-08-01 09:05:00 Test Item Value Reference Range Interpretation Comments Potassium Lvl (test code = Potassium 4.3 3.5-5.1 Lvl) [facility]2016-08-01 09:05:00 Test Item Value Reference Range Interpretation Comments Chloride Lvl (test code = Chloride Lvl) 107 95-109 [facility]2016-08-01 09:05:00 Test Item Value Reference Range Interpretation Comments Sodium Lvl (test code = Sodium Lvl) 143 135-145 [facility]2016-08-01 09:05:00 Test Item Value Reference Range Interpretation Comments AGAP (test code = AGAP) 10.3 10.0-20.0 [facility]BuwhdkpPKGLSQTZZF6757-15-74 09:05:00 Test Item Value Reference Range Interpretation Comments Lymphocytes # (test code = Lymphocytes 1.3 1.0-5.5 #) [facility] HospitalTxzeevsROWGZPOUHG0903-96-47 09:05:00 Test Item Value Reference Range Interpretation Comments Segs-Bands # (test code = Segs-Bands #) 4.4 1.5-8.1 [facility] HospitalSzoktgnDJCRKARVQA2763-42-71 09:05:00 Test Item Value Reference Range Interpretation Comments Eosinophils # (test code 0.3 See_Comment [A utomated message] The = Eosinophils #) system whic h generated this result tra nsmitted reference range : <=0.5. The reference r leatha was not used to int erpret this result as normal/abnormal . [facility] HospitalPtaooedUIUOHXBEDJ5074-24-28 09:05:00 Test Item Value Reference Range Interpretation Comments Monocytes # (test code 0.6 See_Comment [Aut omated message] The = Monocytes #) system which generated this result tra nsmitted reference range : <=0.8. The reference r leatha was not used to int erpret this result as normal/abnormal . [facility] HospitalEofbmtkZAWVGRWYGO9208-87-55 09:05:00 Test Item Value Reference Range Interpretation Comments Basophils (test code = 0.5 See_Comment [Aut omated message] The Basophils) system which ge nerated this result tra nsmitted reference range : <=1.0. The reference r leatha was not used to int erpret this result as normal/abnormal . [facility] HospitalVgmehpfCGKBBMFAJG5348-70-94 09:05:00 Test Item Value Reference Range Interpretation Comments Eosinophils (test code = 4.9 See_Comment [A utomated message] The Eosinophils) system which ge nerated this result tra nsmitted reference range : <=4.0. The reference r leatha was not used to int erpret this result as normal/abnormal . [facility] HospitalRvstsgtNRTRMPPMGK4586-16-83 09:05:00 Test Item Value Reference Range Interpretation Comments Monocytes (test code = Monocytes) 9.1 2.0-12.0 [facility] HospitalNxuziddDXPEZKPJIX1057-81-29 09:05:00 Test Item Value Reference Range Interpretation Comments Lymphocytes (test code = Lymphocytes) 18.9 20.0-40.0 [facility] HospitalHzcmovaFVRNNPIVLZ2744-15-13 09:05:00 Test Item Value Reference Range Interpretation Comments Segs (test code = Segs) 66.6 45.0-75.0 [facility] HospitalRflnikrUXFJYIKOIO7792-11-68 09:05:00 Test Item Value Reference Range Interpretation Comments MPV (test code = MPV) 9.4 7.4-10.4 [facility] HospitalSzfjmxmYKEFKJFDPE4895-43-37 09:05:00 Test Item Value Reference Range Interpretation Comments Platelet (test code = Platelet) 168 133-450 [facility] HospitalZkrgyamLJJJYYJSBO6607-20-63 09:05:00 Test Item Value Reference Range Interpretation Comments RDW (test code = RDW) 13.4 11.5-14.5 [facility] HospitalRueedhcEFFFYVSPCV8997-42-46 09:05:00 Test Item Value Reference Range Interpretation Comments MCHC (test code = MCHC) 32.8 32.0-36.0 [facility] HospitalBysoikcXFCXTKYKWU9031-81-93 09:05:00 Test Item Value Reference Range Interpretation Comments MCH (test code = MCH) 30.7 pg 27.0-31.0 [facility] HospitalEncmqkdHEEPYHWRGU9204-83-38 09:05:00 Test Item Value Reference Range Interpretation Comments MCV (test code = MCV) 93.6 80.0-98.0 [facility] HospitalQwykpwgPSESWOHZDZ2485-30-52 09:05:00 Test Item Value Reference Range Interpretation Comments WBC (test code = WBC) 6.6 3.7-10.4 [facility] HospitalUvmdjboKTGJUVGXMM9831-75-70 09:05:00 Test Item Value Reference Range Interpretation Comments Hct (test code = Hct) 41.0 36.0-48.0 [facility] HospitalHdcvhcaKMJYOSRMXC1059-32-89 09:05:00 Test Item Value Reference Range Interpretation Comments Hgb (test code = Hgb) 13.4 12.0-16.0 [facility] HospitalSjfblqpVOOPNOTFZS5992-77-14 09:05:00 Test Item Value Reference Range Interpretation Comments RBC (test code = RBC) 4.38 4.20-5.40 [facility] JRIWKETLR8696-79-21 09:05:00 Test Item Value Reference Range Interpretation Comments Hgb A1C (test code = Hgb A1C) 10.3 [facility] [id number] 09:05:00 Test Item Value Reference Range Interpretation Comments Magnesium Lvl (test code = Magnesium 1.8 1.8-2.4 Lvl) [facility]2016-08-01 09:05:00 Test Item Value Reference Range Interpretation Comments Phosphorus (test code = Phosphorus) 2.4 2.5-4.5 [facility]2016-08-01 09:05:00 Test Item Value Reference Range Interpretation Comments CO2 (test code = CO2) 30 24-32 [facility] [id number] 09:05:00 Test Item Value Reference Range Interpretation Comments Glucose Lvl (test code = Glucose Lvl) 240 70-99 [facility] [id number] 09:05:00 Test Item Value Reference Range Interpretation Comments Creatinine Lvl (test code = Creatinine 0.80 0.50-1.40 Lvl) [facility]2016-08-01 09:05:00 Test Item Value Reference Range Interpretation Comments BUN (test code = BUN) 20 7-22 [facility] [id number] 09:05:00 Test Item Value Reference Range Interpretation Comments eGFR (test code = eGFR) 73 [facility]2016-08-01 09:05:00 Test Item Value Reference Range Interpretation Comments Albumin Lvl (test code = Albumin Lvl) 2.8 3.5-5.0 [facility]2016-08-01 09:05:00 Test Item Value Reference Range Interpretation Comments Calcium Lvl (test code = Calcium Lvl) 10.5 8.5-10.5 [facility]2016-08-01 09:05:00 Test Item Value Reference Range Interpretation Comments Potassium Lvl (test code = Potassium 4.3 3.5-5.1 Lvl) [facility]2016-08-01 09:05:00 Test Item Value Reference Range Interpretation Comments Chloride Lvl (test code = Chloride Lvl) 107 95-109 [facility]2016-08-01 09:05:00 Test Item Value Reference Range Interpretation Comments Sodium Lvl (test code = Sodium Lvl) 143 135-145 [facility]2016-08-01 09:05:00 Test Item Value Reference Range Interpretation Comments AGAP (test code = AGAP) 10.3 10.0-20.0 [facility] HospitalMkpdmtgJMAAHZBNBQ1738-15-51 09:05:00 Test Item Value Reference Range Interpretation Comments Lymphocytes # (test code = Lymphocytes 1.3 1.0-5.5 #) [facility] HospitalQdmuazgBWSPHPFKTJ6980-49-67 09:05:00 Test Item Value Reference Range Interpretation Comments Segs-Bands # (test code = Segs-Bands #) 4.4 1.5-8.1 [facility] HospitalAnyfvqdKIOLMZGHIN0172-35-86 09:05:00 Test Item Value Reference Range Interpretation Comments Eosinophils # (test code 0.3 See_Comment [A utomated message] The = Eosinophils #) system whic h generated this result tra nsmitted reference range : <=0.5. The reference r leatha was not used to int erpret this result as normal/abnormal . [facility] HospitalNtckpmwEJUQDMMVPS2470-85-15 09:05:00 Test Item Value Reference Range Interpretation Comments Monocytes # (test code 0.6 See_Comment [Aut omated message] The = Monocytes #) system which generated this result tra nsmitted reference range : <=0.8. The reference r leatha was not used to int erpret this result as normal/abnormal . [facility] HospitalFzqarbqVCHOLQEUAL6315-31-97 09:05:00 Test Item Value Reference Range Interpretation Comments Basophils (test code = 0.5 See_Comment [Aut omated message] The Basophils) system which ge nerated this result tra nsmitted reference range : <=1.0. The reference r leatha was not used to int erpret this result as normal/abnormal . [facility] HospitalMurhdbnYGRKNUSZIL8720-12-30 09:05:00 Test Item Value Reference Range Interpretation Comments Eosinophils (test code = 4.9 See_Comment [A utomated message] The Eosinophils) system which ge nerated this result tra nsmitted reference range : <=4.0. The reference r leatha was not used to int erpret this result as normal/abnormal . [facility] HospitalMyufvnoQQLTUZUPPN1999-78-16 09:05:00 Test Item Value Reference Range Interpretation Comments Monocytes (test code = Monocytes) 9.1 2.0-12.0 [facility] HospitalLtfohakEKUITFURFB8945-89-36 09:05:00 Test Item Value Reference Range Interpretation Comments Lymphocytes (test code = Lymphocytes) 18.9 20.0-40.0 [facility] HospitalNlligdjMUUQOIQHPS7186-25-15 09:05:00 Test Item Value Reference Range Interpretation Comments Segs (test code = Segs) 66.6 45.0-75.0 [facility] HospitalBidmqkcUHIWXSCHGH5977-44-96 09:05:00 Test Item Value Reference Range Interpretation Comments MPV (test code = MPV) 9.4 7.4-10.4 [facility] HospitalMaquqtpUWIGHFRBTV6813-56-50 09:05:00 Test Item Value Reference Range Interpretation Comments Platelet (test code = Platelet) 168 133-450 [facility] HospitalZaowhkrBVIZUNTCUC9761-56-59 09:05:00 Test Item Value Reference Range Interpretation Comments RDW (test code = RDW) 13.4 11.5-14.5 [facility] HospitalHnwamjwYLNUYXBZSP8509-47-02 09:05:00 Test Item Value Reference Range Interpretation Comments MCHC (test code = MCHC) 32.8 32.0-36.0 [facility] HospitalJimfjkjWZOXYHWMSI1966-81-78 09:05:00 Test Item Value Reference Range Interpretation Comments MCH (test code = MCH) 30.7 pg 27.0-31.0 [facility] HospitalBtgfojfYTHJPBLSTF8285-65-36 09:05:00 Test Item Value Reference Range Interpretation Comments MCV (test code = MCV) 93.6 80.0-98.0 [facility] HospitalKpzpjloLGGBHDQDVW6315-17-72 09:05:00 Test Item Value Reference Range Interpretation Comments WBC (test code = WBC) 6.6 3.7-10.4 [facility] HospitalRedbmnbKZUGSESUIO5648-26-51 09:05:00 Test Item Value Reference Range Interpretation Comments Hct (test code = Hct) 41.0 36.0-48.0 [facility] HospitalCprxbqtXEROWKQVEP9270-69-49 09:05:00 Test Item Value Reference Range Interpretation Comments Hgb (test code = Hgb) 13.4 12.0-16.0 [facility] HospitalTqijjbhDTWUGIRQAT9504-16-37 09:05:00 Test Item Value Reference Range Interpretation Comments RBC (test code = RBC) 4.38 4.20-5.40 [facility] RWEUTVMMH6135-76-87 09:05:00 Test Item Value Reference Range Interpretation Comments Hgb A1C (test code = Hgb A1C) 10.3 [facility] [id number] 09:05:00 Test Item Value Reference Range Interpretation Comments Magnesium Lvl (test code = Magnesium 1.8 1.8-2.4 Lvl) [facility] [id number] 09:05:00 Test Item Value Reference Range Interpretation Comments Phosphorus (test code = Phosphorus) 2.4 2.5-4.5 [facility]2016-08-01 09:05:00 Test Item Value Reference Range Interpretation Comments CO2 (test code = CO2) 30 24-32 [facility] [id number] 09:05:00 Test Item Value Reference Range Interpretation Comments Glucose Lvl (test code = Glucose Lvl) 240 70-99 [facility] [id number] 09:05:00 Test Item Value Reference Range Interpretation Comments Creatinine Lvl (test code = Creatinine 0.80 0.50-1.40 Lvl) [facility] [id number] 09:05:00 Test Item Value Reference Range Interpretation Comments BUN (test code = BUN) 20 7-22 [facility] [id number] 09:05:00 Test Item Value Reference Range Interpretation Comments eGFR (test code = eGFR) 73 [facility]2016-08-01 09:05:00 Test Item Value Reference Range Interpretation Comments Albumin Lvl (test code = Albumin Lvl) 2.8 3.5-5.0 [facility]2016-08-01 09:05:00 Test Item Value Reference Range Interpretation Comments Calcium Lvl (test code = Calcium Lvl) 10.5 8.5-10.5 [facility]2016-08-01 09:05:00 Test Item Value Reference Range Interpretation Comments Potassium Lvl (test code = Potassium 4.3 3.5-5.1 Lvl) [facility]2016-08-01 09:05:00 Test Item Value Reference Range Interpretation Comments Chloride Lvl (test code = Chloride Lvl) 107 95-109 [facility]2016-08-01 09:05:00 Test Item Value Reference Range Interpretation Comments Sodium Lvl (test code = Sodium Lvl) 143 135-145 [facility]2016-08-01 09:05:00 Test Item Value Reference Range Interpretation Comments AGAP (test code = AGAP) 10.3 10.0-20.0 [facility] HospitalOsokokgPIDVCKTWRG8368-53-22 09:05:00 Test Item Value Reference Range Interpretation Comments Lymphocytes # (test code = Lymphocytes 1.3 1.0-5.5 #) [facility] HospitalEmibbqcQZBZWSQTFB2194-20-02 09:05:00 Test Item Value Reference Range Interpretation Comments Segs-Bands # (test code = Segs-Bands #) 4.4 1.5-8.1 [facility] HospitalBwgsnhiLLXDJDRCHU5455-14-22 09:05:00 Test Item Value Reference Range Interpretation Comments Eosinophils # (test code 0.3 See_Comment [A utomated message] The = Eosinophils #) system whic h generated this result tra nsmitted reference range : <=0.5. The reference r leatha was not used to int erpret this result as normal/abnormal . [facility] HospitalTcnqhjuWWGPCSCSAT4163-61-03 09:05:00 Test Item Value Reference Range Interpretation Comments Monocytes # (test code 0.6 See_Comment [Aut omated message] The = Monocytes #) system which generated this result tra nsmitted reference range : <=0.8. The reference r leatha was not used to int erpret this result as normal/abnormal . [facility] HospitalUdlfhtcPXZERGYHJS6626-03-11 09:05:00 Test Item Value Reference Range Interpretation Comments Basophils (test code = 0.5 See_Comment [Aut omated message] The Basophils) system which ge nerated this result tra nsmitted reference range : <=1.0. The reference r leatha was not used to int erpret this result as normal/abnormal . [facility] HospitalRjskktbPWEKNZSQPO9982-95-50 09:05:00 Test Item Value Reference Range Interpretation Comments Eosinophils (test code = 4.9 See_Comment [A utomated message] The Eosinophils) system which ge nerated this result tra nsmitted reference range : <=4.0. The reference r leatha was not used to int erpret this result as normal/abnormal . [facility] HospitalGbovhycIUGSFQBOGQ9203-30-73 09:05:00 Test Item Value Reference Range Interpretation Comments Monocytes (test code = Monocytes) 9.1 2.0-12.0 [facility] HospitalVlktpyqAAKRFXHPWJ8020-20-68 09:05:00 Test Item Value Reference Range Interpretation Comments Lymphocytes (test code = Lymphocytes) 18.9 20.0-40.0 [facility] HospitalHhjrijaOXXRUEIDMO9395-42-34 09:05:00 Test Item Value Reference Range Interpretation Comments Segs (test code = Segs) 66.6 45.0-75.0 [facility] HospitalZfauhcrDIWVBJOXRG3096-34-49 09:05:00 Test Item Value Reference Range Interpretation Comments MPV (test code = MPV) 9.4 7.4-10.4 [facility] HospitalUkyejrbFWERBILKZW0962-94-96 09:05:00 Test Item Value Reference Range Interpretation Comments Platelet (test code = Platelet) 168 133-450 [facility] HospitalNbhbdcnOWEMHSUFAG1553-49-02 09:05:00 Test Item Value Reference Range Interpretation Comments RDW (test code = RDW) 13.4 11.5-14.5 [facility] HospitalNjakxnmLJKXJPEBMP2808-88-69 09:05:00 Test Item Value Reference Range Interpretation Comments MCHC (test code = MCHC) 32.8 32.0-36.0 [facility] HospitalSxawhkdMJZJFMGHKJ8773-18-66 09:05:00 Test Item Value Reference Range Interpretation Comments MCH (test code = MCH) 30.7 pg 27.0-31.0 [facility] HospitalOnjnqehJDXUCYFCUV0358-61-51 09:05:00 Test Item Value Reference Range Interpretation Comments MCV (test code = MCV) 93.6 80.0-98.0 [facility] HospitalQrjvarqSVRHGBADJQ3789-31-77 09:05:00 Test Item Value Reference Range Interpretation Comments WBC (test code = WBC) 6.6 3.7-10.4 [facility] HospitalSastqssBLOHQJKOOA8880-00-05 09:05:00 Test Item Value Reference Range Interpretation Comments Hct (test code = Hct) 41.0 36.0-48.0 [facility] HospitalRavfsuuXPKCIWQEEK0331-10-60 09:05:00 Test Item Value Reference Range Interpretation Comments Hgb (test code = Hgb) 13.4 12.0-16.0 [facility] HospitalPaoftjhIUGMYRUQMH7457-60-80 09:05:00 Test Item Value Reference Range Interpretation Comments RBC (test code = RBC) 4.38 4.20-5.40 [facility] YCZLBETHQ3638-43-29 09:05:00 Test Item Value Reference Range Interpretation Comments Hgb A1C (test code = Hgb A1C) 10.3 [facility] JFSGV2613-25-88 09:05:00 Test Item Value Reference Range Interpretation Comments Magnesium Lvl (test code = Magnesium 1.8 1.8-2.4 Lvl) [facility]2016-08-01 09:05:00 Test Item Value Reference Range Interpretation Comments Phosphorus (test code = Phosphorus) 2.4 2.5-4.5 [facility]2016-08-01 09:05:00 Test Item Value Reference Range Interpretation Comments CO2 (test code = CO2) 30 24-32 [facility] [id number] 09:05:00 Test Item Value Reference Range Interpretation Comments Glucose Lvl (test code = Glucose Lvl) 240 70-99 [facility] [id number] 09:05:00 Test Item Value Reference Range Interpretation Comments Creatinine Lvl (test code = Creatinine 0.80 0.50-1.40 Lvl) [facility]2016-08-01 09:05:00 Test Item Value Reference Range Interpretation Comments BUN (test code = BUN) 20 7-22 [facility] [id number] 09:05:00 Test Item Value Reference Range Interpretation Comments eGFR (test code = eGFR) 73 [facility]2016-08-01 09:05:00 Test Item Value Reference Range Interpretation Comments Magnesium Lvl (test code = Magnesium 1.8 1.8-2.4 Lvl) [facility]2016-08-01 09:05:00 Test Item Value Reference Range Interpretation Comments Phosphorus (test code = Phosphorus) 2.4 2.5-4.5 [facility]2016-08-01 09:05:00 Test Item Value Reference Range Interpretation Comments CO2 (test code = CO2) 30 24-32 [facility]2016-08-01 09:05:00 Test Item Value Reference Range Interpretation Comments Glucose Lvl (test code = Glucose Lvl) 240 70-99 [facility]2016-08-01 09:05:00 Test Item Value Reference Range Interpretation Comments Creatinine Lvl (test code = Creatinine 0.80 0.50-1.40 Lvl) [facility]2016-08-01 09:05:00 Test Item Value Reference Range Interpretation Comments BUN (test code = BUN) 20 7-22 [facility]2016-08-01 09:05:00 Test Item Value Reference Range Interpretation Comments eGFR (test code = eGFR) 73 [facility]2016-08-01 09:05:00 Test Item Value Reference Range Interpretation Comments Albumin Lvl (test code = Albumin Lvl) 2.8 3.5-5.0 [facility]2016-08-01 09:05:00 Test Item Value Reference Range Interpretation Comments Albumin Lvl (test code = Albumin Lvl) 2.8 3.5-5.0 [facility]2016-08-01 09:05:00 Test Item Value Reference Range Interpretation Comments Calcium Lvl (test code = Calcium Lvl) 10.5 8.5-10.5 [facility]2016-08-01 09:05:00 Test Item Value Reference Range Interpretation Comments Potassium Lvl (test code = Potassium 4.3 3.5-5.1 Lvl) [facility]2016-08-01 09:05:00 Test Item Value Reference Range Interpretation Comments Chloride Lvl (test code = Chloride Lvl) 107 95-109 [facility]2016-08-01 09:05:00 Test Item Value Reference Range Interpretation Comments Sodium Lvl (test code = Sodium Lvl) 143 135-145 [facility]2016-08-01 09:05:00 Test Item Value Reference Range Interpretation Comments AGAP (test code = AGAP) 10.3 10.0-20.0 [facility] HospitalKgpvsapIQPTGYHGLW4472-16-15 09:05:00 Test Item Value Reference Range Interpretation Comments Lymphocytes # (test code = Lymphocytes 1.3 1.0-5.5 #) [facility] HospitalNwxvlqcQWBXPRMNTU8117-62-50 09:05:00 Test Item Value Reference Range Interpretation Comments Segs-Bands # (test code = Segs-Bands #) 4.4 1.5-8.1 [facility] HospitalKknjkqjUBKCDENWKC8924-03-33 09:05:00 Test Item Value Reference Range Interpretation Comments Eosinophils # (test code 0.3 See_Comment [A utomated message] The = Eosinophils #) system whic h generated this result tra nsmitted reference range : <=0.5. The reference r leatha was not used to int erpret this result as normal/abnormal . [facility] HospitalWnsoxmlXVAWXUZKRT9755-33-00 09:05:00 Test Item Value Reference Range Interpretation Comments Monocytes # (test code 0.6 See_Comment [Aut omated message] The = Monocytes #) system which generated this result tra nsmitted reference range : <=0.8. The reference r leatha was not used to int erpret this result as normal/abnormal . [facility]2016-08-01 09:05:00 Test Item Value Reference Range Interpretation Comments Calcium Lvl (test code = Calcium Lvl) 10.5 8.5-10.5 [facility] HospitalDediuggGRUMQOZOTY4868-53-17 09:05:00 Test Item Value Reference Range Interpretation Comments Basophils (test code = 0.5 See_Comment [Aut omated message] The Basophils) system which ge nerated this result tra nsmitted reference range : <=1.0. The reference r leatha was not used to int erpret this result as normal/abnormal . [facility] HospitalBmtiqzaEVGFHQFAJR2009-61-50 09:05:00 Test Item Value Reference Range Interpretation Comments Eosinophils (test code = 4.9 See_Comment [A utomated message] The Eosinophils) system which ge nerated this result tra nsmitted reference range : <=4.0. The reference r leatha was not used to int erpret this result as normal/abnormal . [facility] HospitalDjctuapKUFBLDSIDQ6547-65-56 09:05:00 Test Item Value Reference Range Interpretation Comments Monocytes (test code = Monocytes) 9.1 2.0-12.0 [facility] HospitalTremfohLLBBPQCBQU3132-27-08 09:05:00 Test Item Value Reference Range Interpretation Comments Lymphocytes (test code = Lymphocytes) 18.9 20.0-40.0 [facility] HospitalWdsqkuyRSDDDRSVGW0380-50-41 09:05:00 Test Item Value Reference Range Interpretation Comments Segs (test code = Segs) 66.6 45.0-75.0 [facility]MtnrtbmYUJBNKDDWU7011-27-01 09:05:00 Test Item Value Reference Range Interpretation Comments MPV (test code = MPV) 9.4 7.4-10.4 [facility] HospitalAyjxwvsQLMZAXZFUC4024-07-59 09:05:00 Test Item Value Reference Range Interpretation Comments Platelet (test code = Platelet) 168 133-450 [facility] HospitalQbifsxiPYYLDKOWVC6766-98-32 09:05:00 Test Item Value Reference Range Interpretation Comments RDW (test code = RDW) 13.4 11.5-14.5 [facility] HospitalTajqppdCEKZVIXRER9074-09-20 09:05:00 Test Item Value Reference Range Interpretation Comments MCHC (test code = MCHC) 32.8 32.0-36.0 [facility] HospitalEgbeewsDEFVJEGYAF1098-18-58 09:05:00 Test Item Value Reference Range Interpretation Comments MCH (test code = MCH) 30.7 pg 27.0-31.0 [facility]2016-08-01 09:05:00 Test Item Value Reference Range Interpretation Comments Potassium Lvl (test code = Potassium 4.3 3.5-5.1 Lvl) [facility] HospitalYjzrtjgNXWWSSPEZC9825-39-28 09:05:00 Test Item Value Reference Range Interpretation Comments MCV (test code = MCV) 93.6 80.0-98.0 [facility] HospitalZqmflyfRFTXTAROBT1569-11-42 09:05:00 Test Item Value Reference Range Interpretation Comments WBC (test code = WBC) 6.6 3.7-10.4 [facility] HospitalCounbahBLHKLTLDHS1472-65-14 09:05:00 Test Item Value Reference Range Interpretation Comments Hct (test code = Hct) 41.0 36.0-48.0 [facility] HospitalPspjcxcOLFTIRXFLL3303-18-75 09:05:00 Test Item Value Reference Range Interpretation Comments Hgb (test code = Hgb) 13.4 12.0-16.0 [facility] HospitalTxgsojySOEVEGQZTZ2339-38-17 09:05:00 Test Item Value Reference Range Interpretation Comments RBC (test code = RBC) 4.38 4.20-5.40 [facility] X[facility]ANR[facility]34-63 09:05:00 Test Item Value Reference Range Interpretation Comments Hgb A1C (test code = Hgb A1C) 10.3 [facility] TGGMJ5370-80-85 09:05:00 Test Item Value Reference Range Interpretation Comments Chloride Lvl (test code = Chloride Lvl) 107 95-109 [facility]2016-08-01 09:05:00 Test Item Value Reference Range Interpretation Comments Sodium Lvl (test code = Sodium Lvl) 143 135-145 [facility]2016-08-01 09:05:00 Test Item Value Reference Range Interpretation Comments AGAP (test code = AGAP) 10.3 10.0-20.0 [facility] HospitalWiklzmaFGWOTUCEGC7083-73-00 09:05:00 Test Item Value Reference Range Interpretation Comments Lymphocytes # (test code = Lymphocytes 1.3 1.0-5.5 #) [facility] HospitalVmukzahGSCYYFLJXH8696-24-17 09:05:00 Test Item Value Reference Range Interpretation Comments Segs-Bands # (test code = Segs-Bands #) 4.4 1.5-8.1 [facility] HospitalFtlslueSKPXYWUOKW0437-91-45 09:05:00 Test Item Value Reference Range Interpretation Comments Eosinophils # (test code 0.3 See_Comment [A utomated message] The = Eosinophils #) system whic h generated this result tra nsmitted reference range : <=0.5. The reference r leatha was not used to int erpret this result as normal/abnormal . [facility] HospitalXszusaxUPVOIHENGK8772-72-47 09:05:00 Test Item Value Reference Range Interpretation Comments Monocytes # (test code 0.6 See_Comment [Aut omated message] The = Monocytes #) system which generated this result tra nsmitted reference range : <=0.8. The reference r leatha was not used to int erpret this result as normal/abnormal . [facility] HospitalWxpxggdJLAMGIFDMQ2607-54-10 09:05:00 Test Item Value Reference Range Interpretation Comments Basophils (test code = 0.5 See_Comment [Aut omated message] The Basophils) system which ge nerated this result tra nsmitted reference range : <=1.0. The reference r leatha was not used to int erpret this result as normal/abnormal . [facility] HospitalYeefvzlBNQBUZTYXY6381-95-26 09:05:00 Test Item Value Reference Range Interpretation Comments Eosinophils (test code = 4.9 See_Comment [A utomated message] The Eosinophils) system which ge nerated this result tra nsmitted reference range : <=4.0. The reference r leatha was not used to int erpret this result as normal/abnormal . [facility] HospitalWoxkwcnRTVIBKVDJN1275-20-80 09:05:00 Test Item Value Reference Range Interpretation Comments Monocytes (test code = Monocytes) 9.1 2.0-12.0 [facility] HospitalQjclgdqXTZQTTXJUA8468-48-13 09:05:00 Test Item Value Reference Range Interpretation Comments Lymphocytes (test code = Lymphocytes) 18.9 20.0-40.0 [facility] HospitalEiknyrlDDOQORUCHK7635-21-11 09:05:00 Test Item Value Reference Range Interpretation Comments Segs (test code = Segs) 66.6 45.0-75.0 [facility] HospitalEbpjdidCJEBFXETNL8968-23-47 09:05:00 Test Item Value Reference Range Interpretation Comments MPV (test code = MPV) 9.4 7.4-10.4 [facility] HospitalTdfngwbOLAEYRTEPB6020-46-84 09:05:00 Test Item Value Reference Range Interpretation Comments Platelet (test code = Platelet) 168 133-450 [facility] HospitalJwaacioSRQPWNLZKO7402-91-56 09:05:00 Test Item Value Reference Range Interpretation Comments RDW (test code = RDW) 13.4 11.5-14.5 [facility] HospitalFyqcqffQSXOKLFBRZ4447-76-05 09:05:00 Test Item Value Reference Range Interpretation Comments MCHC (test code = MCHC) 32.8 32.0-36.0 [facility] HospitalAdweuceFXOIRYIPVZ3689-20-61 09:05:00 Test Item Value Reference Range Interpretation Comments MCH (test code = MCH) 30.7 pg 27.0-31.0 [facility] HospitalGzlbpkgVHEKRXGHNX6024-36-56 09:05:00 Test Item Value Reference Range Interpretation Comments MCV (test code = MCV) 93.6 80.0-98.0 [facility]UnflvgjYOELKOHWDR5035-70-73 09:05:00 Test Item Value Reference Range Interpretation Comments WBC (test code = WBC) 6.6 3.7-10.4 [facility] HospitalUgtfdgqTYJFNEIGLZ8302-24-37 09:05:00 Test Item Value Reference Range Interpretation Comments Hct (test code = Hct) 41.0 36.0-48.0 [facility] HospitalWteknjoRFHAOVHYYX5696-50-45 09:05:00 Test Item Value Reference Range Interpretation Comments Hgb (test code = Hgb) 13.4 12.0-16.0 [facility] HospitalNssqzrfNVPWFXLHAP3501-78-48 09:05:00 Test Item Value Reference Range Interpretation Comments RBC (test code = RBC) 4.38 4.20-5.40 [facility] LZCWFNRXC0514-12-05 09:05:00 Test Item Value Reference Range Interpretation Comments Hgb A1C (test code = Hgb A1C) 10.3 [facility] LWTCW0823-01-16 09:05:00 Test Item Value Reference Range Interpretation Comments Magnesium Lvl (test code = Magnesium 1.8 1.8-2.4 Lvl) [facility] QUOAR8143-35-01 09:05:00 Test Item Value Reference Range Interpretation Comments Phosphorus (test code = Phosphorus) 2.4 2.5-4.5 [facility]2016-08-01 09:05:00 Test Item Value Reference Range Interpretation Comments CO2 (test code = CO2) 30 24-32 [facility] XVCHI7555-07-97 09:05:00 Test Item Value Reference Range Interpretation Comments Glucose Lvl (test code = Glucose Lvl) 240 70-99 [facility] ZLVKI2617-28-64 09:05:00 Test Item Value Reference Range Interpretation Comments Creatinine Lvl (test code = Creatinine 0.80 0.50-1.40 Lvl) [facility] ZIOLJ9091-04-91 09:05:00 Test Item Value Reference Range Interpretation Comments BUN (test code = BUN) 20 7-22 [facility] [id number] 09:05:00 Test Item Value Reference Range Interpretation Comments eGFR (test code = eGFR) 73 [facility]2016-08-01 09:05:00 Test Item Value Reference Range Interpretation Comments Albumin Lvl (test code = Albumin Lvl) 2.8 3.5-5.0 [facility]2016-08-01 09:05:00 Test Item Value Reference Range Interpretation Comments Calcium Lvl (test code = Calcium Lvl) 10.5 8.5-10.5 [facility]2016-08-01 09:05:00 Test Item Value Reference Range Interpretation Comments Potassium Lvl (test code = Potassium 4.3 3.5-5.1 Lvl) [facility]2016-08-01 09:05:00 Test Item Value Reference Range Interpretation Comments Chloride Lvl (test code = Chloride Lvl) 107 95-109 [facility]2016-08-01 09:05:00 Test Item Value Reference Range Interpretation Comments Sodium Lvl (test code = Sodium Lvl) 143 135-145 [facility]2016-08-01 09:05:00 Test Item Value Reference Range Interpretation Comments AGAP (test code = AGAP) 10.3 10.0-20.0 [facility] HospitalYgwvnnzSLRQWJNZWB1501-07-09 09:05:00 Test Item Value Reference Range Interpretation Comments Lymphocytes # (test code = Lymphocytes 1.3 1.0-5.5 #) [facility] HospitalSobmsbrCTEVVCZIHL5922-60-00 09:05:00 Test Item Value Reference Range Interpretation Comments Segs-Bands # (test code = Segs-Bands #) 4.4 1.5-8.1 [facility] HospitalYrtzwtuXLXOVLOOYU1712-89-73 09:05:00 Test Item Value Reference Range Interpretation Comments Eosinophils # (test code 0.3 See_Comment [A utomated message] The = Eosinophils #) system whic h generated this result tra nsmitted reference range : <=0.5. The reference r leatha was not used to int erpret this result as normal/abnormal . [facility] HospitalZsozqsjTDROXQIXJW2390-03-26 09:05:00 Test Item Value Reference Range Interpretation Comments Monocytes # (test code 0.6 See_Comment [Aut omated message] The = Monocytes #) system which generated this result tra nsmitted reference range : <=0.8. The reference r leatha was not used to int erpret this result as normal/abnormal . [facility] HospitalQzjlrogSBLCNXUZBH5383-51-71 09:05:00 Test Item Value Reference Range Interpretation Comments Basophils (test code = 0.5 See_Comment [Aut omated message] The Basophils) system which ge nerated this result tra nsmitted reference range : <=1.0. The reference r leatha was not used to int erpret this result as normal/abnormal . [facility] HospitalRwpyllgIDSQXOTTOW2759-19-53 09:05:00 Test Item Value Reference Range Interpretation Comments Eosinophils (test code = 4.9 See_Comment [A utomated message] The Eosinophils) system which ge nerated this result tra nsmitted reference range : <=4.0. The reference r leatha was not used to int erpret this result as normal/abnormal . [facility] HospitalAogxzmnTYKVRPTOJR1975-12-31 09:05:00 Test Item Value Reference Range Interpretation Comments Monocytes (test code = Monocytes) 9.1 2.0-12.0 [facility] HospitalEouceueHXHKKJIMAM2730-22-12 09:05:00 Test Item Value Reference Range Interpretation Comments Lymphocytes (test code = Lymphocytes) 18.9 20.0-40.0 [facility] HospitalPfamrluSFJQWLRPIC3034-24-74 09:05:00 Test Item Value Reference Range Interpretation Comments Segs (test code = Segs) 66.6 45.0-75.0 [facility] HospitalSwkajfqYMFVSFUGDY0655-64-69 09:05:00 Test Item Value Reference Range Interpretation Comments MPV (test code = MPV) 9.4 7.4-10.4 [facility] HospitalHtqsuqpWREVRKSGMW9045-07-01 09:05:00 Test Item Value Reference Range Interpretation Comments Platelet (test code = Platelet) 168 133-450 [facility] HospitalDqruqtzSNNIVXTCTJ1460-03-93 09:05:00 Test Item Value Reference Range Interpretation Comments RDW (test code = RDW) 13.4 11.5-14.5 [facility] HospitalOfrkzuyQDXQSEPURJ3170-53-85 09:05:00 Test Item Value Reference Range Interpretation Comments MCHC (test code = MCHC) 32.8 32.0-36.0 [facility] HospitalAwvhfjpTZCXUSRWLC7701-33-27 09:05:00 Test Item Value Reference Range Interpretation Comments MCH (test code = MCH) 30.7 pg 27.0-31.0 [facility] HospitalRmubcinIMIOHRDNWU3637-56-24 09:05:00 Test Item Value Reference Range Interpretation Comments MCV (test code = MCV) 93.6 80.0-98.0 [facility]vygdovLWTQUKZDJP3681-59-72 09:05:00 Test Item Value Reference Range Interpretation Comments WBC (test code = WBC) 6.6 3.7-10.4 [facility] HospitalWckdzxjAOKYLZIJXX1353-61-86 09:05:00 Test Item Value Reference Range Interpretation Comments Hct (test code = Hct) 41.0 36.0-48.0 [facility] HospitalEcosnqxIMESYFMBDI6938-81-57 09:05:00 Test Item Value Reference Range Interpretation Comments Hgb (test code = Hgb) 13.4 12.0-16.0 [facility] HospitalVonmytkEQVPZBJQXM4236-21-67 09:05:00 Test Item Value Reference Range Interpretation Comments RBC (test code = RBC) 4.38 4.20-5.40 [facility] GAKTSCCOX5577-00-33 09:05:00 Test Item Value Reference Range Interpretation Comments Hgb A1C (test code = Hgb A1C) 10.3 [facility] ZNMRU1568-08-69 09:05:00 Test Item Value Reference Range Interpretation Comments Magnesium Lvl (test code = Magnesium 1.8 1.8-2.4 Lvl) [facility] TRTGF5877-90-61 09:05:00 Test Item Value Reference Range Interpretation Comments Phosphorus (test code = Phosphorus) 2.4 2.5-4.5 [facility] QOBOQ7875-16-89 09:05:00 Test Item Value Reference Range Interpretation Comments CO2 (test code = CO2) 30 24-32 [facility] OYTPF2397-50-09 09:05:00 Test Item Value Reference Range Interpretation Comments Glucose Lvl (test code = Glucose Lvl) 240 70-99 [facility] GVRHO9479-30-28 09:05:00 Test Item Value Reference Range Interpretation Comments Creatinine Lvl (test code = Creatinine 0.80 0.50-1.40 Lvl) [facility] KTNAX3510-55-68 09:05:00 Test Item Value Reference Range Interpretation Comments BUN (test code = BUN) 20 7-22 [facility] [id number] 09:05:00 Test Item Value Reference Range Interpretation Comments eGFR (test code = eGFR) 73 [facility] ZYIEW1241-68-38 09:05:00 Test Item Value Reference Range Interpretation Comments Albumin Lvl (test code = Albumin Lvl) 2.8 3.5-5.0 [facility]2016-08-01 09:05:00 Test Item Value Reference Range Interpretation Comments Calcium Lvl (test code = Calcium Lvl) 10.5 8.5-10.5 [facility]2016-08-01 09:05:00 Test Item Value Reference Range Interpretation Comments Potassium Lvl (test code = Potassium 4.3 3.5-5.1 Lvl) [facility]2016-08-01 09:05:00 Test Item Value Reference Range Interpretation Comments Chloride Lvl (test code = Chloride Lvl) 107 95-109 [facility]2016-08-01 09:05:00 Test Item Value Reference Range Interpretation Comments Sodium Lvl (test code = Sodium Lvl) 143 135-145 [facility]2016-08-01 09:05:00 Test Item Value Reference Range Interpretation Comments AGAP (test code = AGAP) 10.3 10.0-20.0 [facility] HospitalIzdkzcbRJKQTTPRZQ9804-35-40 09:05:00 Test Item Value Reference Range Interpretation Comments Lymphocytes # (test code = Lymphocytes 1.3 1.0-5.5 #) [facility] HospitalZdzapynJBYBZGMMDJ3088-58-35 09:05:00 Test Item Value Reference Range Interpretation Comments Segs-Bands # (test code = Segs-Bands #) 4.4 1.5-8.1 [facility] HospitalJhanxzdFHADEXQPGG4590-57-53 09:05:00 Test Item Value Reference Range Interpretation Comments Eosinophils # (test code 0.3 See_Comment [A utomated message] The = Eosinophils #) system whic h generated this result tra nsmitted reference range : <=0.5. The reference r leatha was not used to int erpret this result as normal/abnormal . [facility] HospitalJuxhgzoNVNZEJMPTO2841-97-83 09:05:00 Test Item Value Reference Range Interpretation Comments Monocytes # (test code 0.6 See_Comment [Aut omated message] The = Monocytes #) system which generated this result tra nsmitted reference range : <=0.8. The reference r leatha was not used to int erpret this result as normal/abnormal . [place] 406556-08-01 09:05:00 Test Item Value Reference Range Interpretation Comments Basophils (test code = 0.5 See_Comment [Aut omated message] The Basophils) system which ge nerated this result tra nsmitted reference range : <=1.0. The reference r leatha was not used to int erpret this result as normal/abnormal . [facility] HospitalItqiddmORKDYPVWJK0404-28-14 09:05:00 Test Item Value Reference Range Interpretation Comments Eosinophils (test code = 4.9 See_Comment [A utomated message] The Eosinophils) system which ge nerated this result tra nsmitted reference range : <=4.0. The reference r leatha was not used to int erpret this result as normal/abnormal . [facility] HospitalZevrqaxUFIQAHUTFS7508-24-54 09:05:00 Test Item Value Reference Range Interpretation Comments Monocytes (test code = Monocytes) 9.1 2.0-12.0 [facility] HospitalYybwkejSUONUQOYOY8111-81-73 09:05:00 Test Item Value Reference Range Interpretation Comments Lymphocytes (test code = Lymphocytes) 18.9 20.0-40.0 [facility] HospitalFfulaxnMUALKLAZPN8140-47-96 09:05:00 Test Item Value Reference Range Interpretation Comments Segs (test code = Segs) 66.6 45.0-75.0 [facility] HospitalPvunrahNXWICFUFFW1937-22-44 09:05:00 Test Item Value Reference Range Interpretation Comments MPV (test code = MPV) 9.4 7.4-10.4 [facility] HospitalOnvkoscNXZQULVODM7210-21-89 09:05:00 Test Item Value Reference Range Interpretation Comments Platelet (test code = Platelet) 168 133-450 [facility] HospitalYrggzmkGRODEUUFEN0297-39-91 09:05:00 Test Item Value Reference Range Interpretation Comments RDW (test code = RDW) 13.4 11.5-14.5 [facility] HospitalUpngzskACKGLKSXQQ7947-23-41 09:05:00 Test Item Value Reference Range Interpretation Comments MCHC (test code = MCHC) 32.8 32.0-36.0 [facility] HospitalMivjioeYBSTLNKTFW5604-19-75 09:05:00 Test Item Value Reference Range Interpretation Comments MCH (test code = MCH) 30.7 pg 27.0-31.0 [facility] HospitalGruhhcpUYGMBRQZTW7178-99-10 09:05:00 Test Item Value Reference Range Interpretation Comments MCV (test code = MCV) 93.6 80.0-98.0 [facility] HospitalPfnwiheCVUILHDUUO8869-79-67 09:05:00 Test Item Value Reference Range Interpretation Comments WBC (test code = WBC) 6.6 3.7-10.4 [facility] HospitalToklrymVVDXJSNOVF0206-56-88 09:05:00 Test Item Value Reference Range Interpretation Comments Hct (test code = Hct) 41.0 36.0-48.0 [facility] HospitalOqezibxMUJHMPLSGO4258-00-01 09:05:00 Test Item Value Reference Range Interpretation Comments Hgb (test code = Hgb) 13.4 12.0-16.0 [facility] HospitalRdypgkmHIZXXNFWJA1189-88-60 09:05:00 Test Item Value Reference Range Interpretation Comments RBC (test code = RBC) 4.38 4.20-5.40 [facility] BNVTNITTE7686-24-40 09:05:00 Test Item Value Reference Range Interpretation Comments Hgb A1C (test code = Hgb A1C) 10.3 [facility] JQNDE5654-19-04 09:05:00 Test Item Value Reference Range Interpretation Comments Magnesium Lvl (test code = Magnesium 1.8 1.8-2.4 Lvl) [facility]2016-08-01 09:05:00 Test Item Value Reference Range Interpretation Comments Phosphorus (test code = Phosphorus) 2.4 2.5-4.5 [facility]2016-08-01 09:05:00 Test Item Value Reference Range Interpretation Comments CO2 (test code = CO2) 30 24-32 [facility]2016-08-01 09:05:00 Test Item Value Reference Range Interpretation Comments Glucose Lvl (test code = Glucose Lvl) 240 70-99 [facility]2016-08-01 09:05:00 Test Item Value Reference Range Interpretation Comments Creatinine Lvl (test code = Creatinine 0.80 0.50-1.40 Lvl) [facility]2016-08-01 09:05:00 Test Item Value Reference Range Interpretation Comments BUN (test code = BUN) 20 7-22 [facility]2016-08-01 09:05:00 Test Item Value Reference Range Interpretation Comments eGFR (test code = eGFR) 73 [facility]2016-08-01 09:05:00 Test Item Value Reference Range Interpretation Comments Albumin Lvl (test code = Albumin Lvl) 2.8 3.5-5.0 [facility]2016-08-01 09:05:00 Test Item Value Reference Range Interpretation Comments Calcium Lvl (test code = Calcium Lvl) 10.5 8.5-10.5 [facility]2016-08-01 09:05:00 Test Item Value Reference Range Interpretation Comments Potassium Lvl (test code = Potassium 4.3 3.5-5.1 Lvl) [facility]2016-08-01 09:05:00 Test Item Value Reference Range Interpretation Comments Chloride Lvl (test code = Chloride Lvl) 107 95-109 [facility]2016-08-01 09:05:00 Test Item Value Reference Range Interpretation Comments Sodium Lvl (test code = Sodium Lvl) 143 135-145 [facility]2016-08-01 09:05:00 Test Item Value Reference Range Interpretation Comments AGAP (test code = AGAP) 10.3 10.0-20.0 [facility] HospitalSfjtpcfOSQYXYTDYY0394-16-63 09:05:00 Test Item Value Reference Range Interpretation Comments Lymphocytes # (test code = Lymphocytes 1.3 1.0-5.5 #) [facility] HospitalFhliavpLVJVMUZCVH0058-76-65 09:05:00 Test Item Value Reference Range Interpretation Comments Segs-Bands # (test code = Segs-Bands #) 4.4 1.5-8.1 [facility] HospitalBcyywcpOMWKOPTGMO2596-29-18 09:05:00 Test Item Value Reference Range Interpretation Comments Eosinophils # (test code 0.3 See_Comment [A utomated message] The = Eosinophils #) system whic h generated this result tra nsmitted reference range : <=0.5. The reference r leatha was not used to int erpret this result as normal/abnormal . [facility] HospitalJjgltsfKIWYXZKMZL4085-76-82 09:05:00 Test Item Value Reference Range Interpretation Comments Monocytes # (test code 0.6 See_Comment [Aut omated message] The = Monocytes #) system which generated this result tra nsmitted reference range : <=0.8. The reference r leatha was not used to int erpret this result as normal/abnormal . [facility] HospitalZhcottsWJXTYINOKG3769-67-78 09:05:00 Test Item Value Reference Range Interpretation Comments Basophils (test code = 0.5 See_Comment [Aut omated message] The Basophils) system which ge nerated this result tra nsmitted reference range : <=1.0. The reference r leatha was not used to int erpret this result as normal/abnormal . [facility] HospitalJcnbpzfNHUUVHOOZB7829-35-62 09:05:00 Test Item Value Reference Range Interpretation Comments Eosinophils (test code = 4.9 See_Comment [A utomated message] The Eosinophils) system which ge nerated this result tra nsmitted reference range : <=4.0. The reference r leatha was not used to int erpret this result as normal/abnormal . [facility] HospitalMwmqnceGBYENBARKJ4542-38-22 09:05:00 Test Item Value Reference Range Interpretation Comments Monocytes (test code = Monocytes) 9.1 2.0-12.0 [facility] HospitalQppcyjeNLWMMRBSGW9430-33-49 09:05:00 Test Item Value Reference Range Interpretation Comments Lymphocytes (test code = Lymphocytes) 18.9 20.0-40.0 [facility] HospitalIooxlpkJWHSBVZLWR8647-48-77 09:05:00 Test Item Value Reference Range Interpretation Comments Segs (test code = Segs) 66.6 45.0-75.0 [facility] HospitalFpgadevSWTRVVIIVQ1228-03-00 09:05:00 Test Item Value Reference Range Interpretation Comments MPV (test code = MPV) 9.4 7.4-10.4 [facility] HospitalEbwpjgiZLVZAICAHR1050-62-01 09:05:00 Test Item Value Reference Range Interpretation Comments Platelet (test code = Platelet) 168 133-450 [facility] HospitalWxcgpyyVEMNAWNGIZ1602-25-06 09:05:00 Test Item Value Reference Range Interpretation Comments RDW (test code = RDW) 13.4 11.5-14.5 [facility] HospitalZslcohqUDKADMZTMH2208-26-77 09:05:00 Test Item Value Reference Range Interpretation Comments MCHC (test code = MCHC) 32.8 32.0-36.0 [facility] HospitalWdrxlgtOZYJQKCTDW7130-33-10 09:05:00 Test Item Value Reference Range Interpretation Comments MCH (test code = MCH) 30.7 pg 27.0-31.0 [facility] HospitalIfxjvxcVEUAZBBGMQ5051-19-87 09:05:00 Test Item Value Reference Range Interpretation Comments MCV (test code = MCV) 93.6 80.0-98.0 [facility] HospitalEhinnrtHTIUPEAJHX1093-51-86 09:05:00 Test Item Value Reference Range Interpretation Comments WBC (test code = WBC) 6.6 3.7-10.4 [facility] HospitalZsoqfzuKATHSBBZMX0390-71-85 09:05:00 Test Item Value Reference Range Interpretation Comments Hct (test code = Hct) 41.0 36.0-48.0 [id number] 09:05:00 Test Item Value Reference Range Interpretation Comments Hgb (test code = Hgb) 13.4 12.0-16.0 [facility] HospitalEkenipxKLLDHOUQHG3513-51-28 09:05:00 Test Item Value Reference Range Interpretation Comments RBC (test code = RBC) 4.38 4.20-5.40 [facility] [id number] 09:05:00 Test Item Value Reference Range Interpretation Comments Hgb A1C (test code = Hgb A1C) 10.3 [facility] [id number] 09:17:00 Test Item Value Reference Range Interpretation Comments eGFR (test code = eGFR) 81 [facility]2016-07-30 09:17:00 Test Item Value Reference Range Interpretation Comments Creatinine Lvl (test code = Creatinine 0.73 0.50-1.40 Lvl) [facility]2016-07-30 09:17:00 Test Item Value Reference Range Interpretation Comments AST (test code = AST) 7 See_Comment [Auto mated message] The system which ge nerated this result transmit juan reference range : <=37. The reference range was not used to interpr et this result as lashonda l/abnormal. [facility] [id number] 09:17:00 Test Item Value Reference Range Interpretation Comments Total Protein (test code = Total 5.0 6.4-8.4 Protein) [facility]2016-07-30 09:17:00 Test Item Value Reference Range Interpretation Comments Alk Phos (test code = Alk Phos) 73 39-136 [facility]2016-07-30 09:17:00 Test Item Value Reference Range Interpretation Comments ALT (test code = ALT) 29 See_Comment [Auto mated message] The system which ge nerated this result transmit juan reference range : <=65. The reference range was not used to interpr et this result as lashonda l/abnormal. [facility]2016-07-30 09:17:00 Test Item Value Reference Range Interpretation Comments Bili Total (test code = Bili Total) 0.7 0.2-1.3 [facility]2016-07-30 09:17:00 Test Item Value Reference Range Interpretation Comments Albumin Lvl (test code = Albumin Lvl) 2.7 3.5-5.0 [facility]2016-07-30 09:17:00 Test Item Value Reference Range Interpretation Comments AGAP (test code = AGAP) 10.9 10.0-20.0 [facility]2016-07-30 09:17:00 Test Item Value Reference Range Interpretation Comments Calcium Lvl (test code = Calcium Lvl) 10.0 8.5-10.5 [facility]2016-07-30 09:17:00 Test Item Value Reference Range Interpretation Comments Glucose Lvl (test code = Glucose Lvl) 208 70-99 [facility]2016-07-30 09:17:00 Test Item Value Reference Range Interpretation Comments Potassium Lvl (test code = Potassium 3.9 3.5-5.1 Lvl) [facility]2016-07-30 09:17:00 Test Item Value Reference Range Interpretation Comments BUN (test code = BUN) 20 7-22 [facility]2016-07-30 09:17:00 Test Item Value Reference Range Interpretation Comments Sodium Lvl (test code = Sodium Lvl) 145 135-145 [facility]2016-07-30 09:17:00 Test Item Value Reference Range Interpretation Comments Chloride Lvl (test code = Chloride Lvl) 109 95-109 [facility]2016-07-30 09:17:00 Test Item Value Reference Range Interpretation Comments CO2 (test code = CO2) 29 24-32 [facility]2016-07-30 09:17:00 Test Item Value Reference Range Interpretation Comments B/C Ratio (test code = B/C Ratio) 27 6-25 [facility]2016-07-30 09:17:00 Test Item Value Reference Range Interpretation Comments A/G Ratio (test code = A/G Ratio) 1.2 0.7-1.6 [facility]2016-07-30 09:17:00 Test Item Value Reference Range Interpretation Comments Globulin (test code = Globulin) 2.3 2.0-4.0 [facility] HospitalDqakkopLDNPOFTWHW6347-78-17 09:17:00 Test Item Value Reference Range Interpretation Comments Monocytes (test code = Monocytes) 11.7 2.0-12.0 [facility] HospitalMlphrlvFCVFOYJIUC1212-53-86 09:17:00 Test Item Value Reference Range Interpretation Comments Segs-Bands # (test code = Segs-Bands #) 4.9 1.5-8.1 [facility] HospitalEbohrboPVMOQLJLPG7821-17-32 09:17:00 Test Item Value Reference Range Interpretation Comments Basophils (test code = 0.4 See_Comment [Aut omated message] The Basophils) system which ge nerated this result tra nsmitted reference range : <=1.0. The reference r leatha was not used to int erpret this result as normal/abnormal . [facility] HospitalKkqpwrrLFXQYGPPSO2158-69-28 09:17:00 Test Item Value Reference Range Interpretation Comments Lymphocytes # (test code = Lymphocytes 1.3 1.0-5.5 #) [facility] HospitalQxlqjbbWPECVEWQDW7778-33-31 09:17:00 Test Item Value Reference Range Interpretation Comments Macrocyte (test code = 1+ *ABN*(01/15/16 Macrocyte) 4:17 AM) [facility] HospitalVowmdwmSCQPYUTWCM3671-62-56 09:17:00 Test Item Value Reference Range Interpretation Comments Segs (test code = Segs) 67.7 45.0-75.0 [facility] HospitalBbynfieTZRFEEDTFH3631-91-88 09:17:00 Test Item Value Reference Range Interpretation Comments Lymphocytes (test code = Lymphocytes) 17.4 20.0-40.0 [facility] HospitalMkbkygvXBQHQCLHDO7889-39-71 09:17:00 Test Item Value Reference Range Interpretation Comments Eosinophils (test code = 2.8 See_Comment [A utomated message] The Eosinophils) system which ge nerated this result tra nsmitted reference range : <=4.0. The reference r leatha was not used to int erpret this result as normal/abnormal . [facility] HospitalSkrvtigCRCDXPLFAL2352-53-93 09:17:00 Test Item Value Reference Range Interpretation Comments Basophils # (test code 0.0 See_Comment [Aut omated message] The = Basophils #) system which generated this result tra nsmitted reference range : <=0.2. The reference r leatha was not used to int erpret this result as normal/abnormal . [facility] HospitalMklykkoQLIHFCQAZW4238-84-13 09:17:00 Test Item Value Reference Range Interpretation Comments Eosinophils # (test code 0.2 See_Comment [A utomated message] The = Eosinophils #) system whic h generated this result tra nsmitted reference range : <=0.5. The reference r leatha was not used to int erpret this result as normal/abnormal . [facility] HospitalCfqmejmPRUVKZJRNQ5744-84-93 09:17:00 Test Item Value Reference Range Interpretation Comments Monocytes # (test code 0.9 See_Comment [Aut omated message] The = Monocytes #) system which generated this result tra nsmitted reference range : <=0.8. The reference r leatha was not used to int erpret this result as normal/abnormal . [facility] HospitalGfjbkhkUUEXGNBVSR8158-20-95 09:17:00 Test Item Value Reference Range Interpretation Comments Platelet (test code = Platelet) 149 133-450 [facility] HospitalUemmhzfHRTGUXDUZB6778-00-42 09:17:00 Test Item Value Reference Range Interpretation Comments WBC (test code = WBC) 7.3 3.7-10.4 [facility] HospitalWuhxasmHQBGVVOMRV1746-29-76 09:17:00 Test Item Value Reference Range Interpretation Comments Hct (test code = Hct) 39.8 36.0-48.0 [facility] HospitalGrdekhdHAQZMSWEOL2214-62-62 09:17:00 Test Item Value Reference Range Interpretation Comments Hgb (test code = Hgb) 13.0 12.0-16.0 [facility] HospitalTsjvtbdITTKXPMRQW4710-85-51 09:17:00 Test Item Value Reference Range Interpretation Comments RBC (test code = RBC) 4.23 4.20-5.40 [facility] HospitalKlnftxhCVRBPLTNJA4309-12-73 09:17:00 Test Item Value Reference Range Interpretation Comments MCHC (test code = MCHC) 32.8 32.0-36.0 [facility] HospitalDjpnvhsDGXGFIODXK9396-94-09 09:17:00 Test Item Value Reference Range Interpretation Comments MCV (test code = MCV) 94.0 80.0-98.0 [facility] HospitalGcgwtpqUKSXBJUEEF2596-01-28 09:17:00 Test Item Value Reference Range Interpretation Comments MCH (test code = MCH) 30.8 pg 27.0-31.0 [facility] HospitalWcgvdeyJDOEPYAIUF9512-82-75 09:17:00 Test Item Value Reference Range Interpretation Comments RDW (test code = RDW) 13.5 11.5-14.5 [facility] HospitalLcyuaxhJXGFRXKXLT2163-13-27 09:17:00 Test Item Value Reference Range Interpretation Comments MPV (test code = MPV) 9.6 7.4-10.4 [place] 315576-07-30 09:17:00 Test Item Value Reference Range Interpretation Comments eGFR (test code = eGFR) 81 [facility]2016-07-30 09:17:00 Test Item Value Reference Range Interpretation Comments Creatinine Lvl (test code = Creatinine 0.73 0.50-1.40 Lvl) [facility]2016-07-30 09:17:00 Test Item Value Reference Range Interpretation Comments AST (test code = AST) 7 See_Comment [Auto mated message] The system which ge nerated this result transmit juan reference range : <=37. The reference range was not used to interpr et this result as lashonda l/abnormal. [facility]2016-07-30 09:17:00 Test Item Value Reference Range Interpretation Comments Total Protein (test code = Total 5.0 6.4-8.4 Protein) [facility]2016-07-30 09:17:00 Test Item Value Reference Range Interpretation Comments Alk Phos (test code = Alk Phos) 73 39-136 [facility]2016-07-30 09:17:00 Test Item Value Reference Range Interpretation Comments ALT (test code = ALT) 29 See_Comment [Auto mated message] The system which ge nerated this result transmit juan reference range : <=65. The reference range was not used to interpr et this result as lashonda l/abnormal. [facility]2016-07-30 09:17:00 Test Item Value Reference Range Interpretation Comments Bili Total (test code = Bili Total) 0.7 0.2-1.3 [facility]2016-07-30 09:17:00 Test Item Value Reference Range Interpretation Comments Albumin Lvl (test code = Albumin Lvl) 2.7 3.5-5.0 [facility]2016-07-30 09:17:00 Test Item Value Reference Range Interpretation Comments AGAP (test code = AGAP) 10.9 10.0-20.0 [facility]2016-07-30 09:17:00 Test Item Value Reference Range Interpretation Comments Calcium Lvl (test code = Calcium Lvl) 10.0 8.5-10.5 [facility]2016-07-30 09:17:00 Test Item Value Reference Range Interpretation Comments Glucose Lvl (test code = Glucose Lvl) 208 70-99 [facility]2016-07-30 09:17:00 Test Item Value Reference Range Interpretation Comments Potassium Lvl (test code = Potassium 3.9 3.5-5.1 Lvl) [facility]2016-07-30 09:17:00 Test Item Value Reference Range Interpretation Comments BUN (test code = BUN) 20 7-22 [facility]2016-07-30 09:17:00 Test Item Value Reference Range Interpretation Comments Sodium Lvl (test code = Sodium Lvl) 145 135-145 [facility]2016-07-30 09:17:00 Test Item Value Reference Range Interpretation Comments Chloride Lvl (test code = Chloride Lvl) 109 95-109 [facility]2016-07-30 09:17:00 Test Item Value Reference Range Interpretation Comments CO2 (test code = CO2) 29 24-32 [facility]2016-07-30 09:17:00 Test Item Value Reference Range Interpretation Comments B/C Ratio (test code = B/C Ratio) 27 6-25 [facility]2016-07-30 09:17:00 Test Item Value Reference Range Interpretation Comments A/G Ratio (test code = A/G Ratio) 1.2 0.7-1.6 [facility]2016-07-30 09:17:00 Test Item Value Reference Range Interpretation Comments Globulin (test code = Globulin) 2.3 2.0-4.0 [facility] HospitalDelzvdtCKWYXZZWPH0189-22-08 09:17:00 Test Item Value Reference Range Interpretation Comments Monocytes (test code = Monocytes) 11.7 2.0-12.0 [facility] HospitalXqjkxioTSTKNIOBEG6778-64-62 09:17:00 Test Item Value Reference Range Interpretation Comments Segs-Bands # (test code = Segs-Bands #) 4.9 1.5-8.1 [facility] HospitalFuomwklMGTUHBAAVO9568-39-53 09:17:00 Test Item Value Reference Range Interpretation Comments Basophils (test code = 0.4 See_Comment [Aut omated message] The Basophils) system which ge nerated this result tra nsmitted reference range : <=1.0. The reference r leatha was not used to int erpret this result as normal/abnormal . [facility] HospitalCfgsxdyBRIPEKRDPV7256-23-54 09:17:00 Test Item Value Reference Range Interpretation Comments Lymphocytes # (test code = Lymphocytes 1.3 1.0-5.5 #) [facility] HospitalMovxsnpKRDXVZUKZD8896-53-73 09:17:00 Test Item Value Reference Range Interpretation Comments Macrocyte (test code = 1+ *ABN*(01/15/16 Macrocyte) 4:17 AM) [facility] HospitalLwofcuqLRGWRIQVKE6310-82-76 09:17:00 Test Item Value Reference Range Interpretation Comments Segs (test code = Segs) 67.7 45.0-75.0 [facility] HospitalDcqybwjTOKFLNNQWN6402-77-42 09:17:00 Test Item Value Reference Range Interpretation Comments Lymphocytes (test code = Lymphocytes) 17.4 20.0-40.0 [facility] HospitalTntdlawBUEAUUYYKL1309-98-79 09:17:00 Test Item Value Reference Range Interpretation Comments Eosinophils (test code = 2.8 See_Comment [A utomated message] The Eosinophils) system which ge nerated this result tra nsmitted reference range : <=4.0. The reference r leatha was not used to int erpret this result as normal/abnormal . [facility] HospitalEvsgyjbXTHXPEXNYJ8928-10-99 09:17:00 Test Item Value Reference Range Interpretation Comments Basophils # (test code 0.0 See_Comment [Aut omated message] The = Basophils #) system which generated this result tra nsmitted reference range : <=0.2. The reference r leatha was not used to int erpret this result as normal/abnormal . [facility] HospitalPdgnigfSGIFZNSCNQ8581-39-07 09:17:00 Test Item Value Reference Range Interpretation Comments Eosinophils # (test code 0.2 See_Comment [A utomated message] The = Eosinophils #) system whic h generated this result tra nsmitted reference range : <=0.5. The reference r leatha was not used to int erpret this result as normal/abnormal . [facility] HospitalZrljjybBORHXFKDAR8670-50-55 09:17:00 Test Item Value Reference Range Interpretation Comments Monocytes # (test code 0.9 See_Comment [Aut omated message] The = Monocytes #) system which generated this result tra nsmitted reference range : <=0.8. The reference r leatha was not used to int erpret this result as normal/abnormal . [facility] HospitalFqjcjwjIKEFNACGKZ6200-86-90 09:17:00 Test Item Value Reference Range Interpretation Comments Platelet (test code = Platelet) 149 133-450 [facility] HospitalQgjwokmAXGYWXGVXB8772-18-47 09:17:00 Test Item Value Reference Range Interpretation Comments WBC (test code = WBC) 7.3 3.7-10.4 [facility] HospitalPunppyxTVKJYBQJSV8211-28-18 09:17:00 Test Item Value Reference Range Interpretation Comments Hct (test code = Hct) 39.8 36.0-48.0 [facility] HospitalTssfsuzVPOCCORREL7307-41-76 09:17:00 Test Item Value Reference Range Interpretation Comments Hgb (test code = Hgb) 13.0 12.0-16.0 [facility] HospitalMsnppvqAGCPVUIQXH6230-99-34 09:17:00 Test Item Value Reference Range Interpretation Comments RBC (test code = RBC) 4.23 4.20-5.40 [facility] HospitalChdnflnRDJSOGHHAR6183-42-25 09:17:00 Test Item Value Reference Range Interpretation Comments MCHC (test code = MCHC) 32.8 32.0-36.0 [facility] HospitalWtszyyxHOSBXYEQQL3650-29-78 09:17:00 Test Item Value Reference Range Interpretation Comments MCV (test code = MCV) 94.0 80.0-98.0 [facility] HospitalSvelvnoTUCUWCHYFU6695-97-91 09:17:00 Test Item Value Reference Range Interpretation Comments MCH (test code = MCH) 30.8 pg 27.0-31.0 [facility] HospitalMttnxsuDJBDWIEMFA8523-28-77 09:17:00 Test Item Value Reference Range Interpretation Comments RDW (test code = RDW) 13.5 11.5-14.5 [facility] HospitalRgbbqhqOCHIVIBQNH6418-77-25 09:17:00 Test Item Value Reference Range Interpretation Comments MPV (test code = MPV) 9.6 7.4-10.4 [facility]2016-07-30 09:17:00 Test Item Value Reference Range Interpretation Comments eGFR (test code = eGFR) 81 [facility]2016-07-30 09:17:00 Test Item Value Reference Range Interpretation Comments Creatinine Lvl (test code = Creatinine 0.73 0.50-1.40 Lvl) [place] 315576-07-30 09:17:00 Test Item Value Reference Range Interpretation Comments AST (test code = AST) 7 See_Comment [Auto mated message] The system which ge nerated this result transmit juan reference range : <=37. The reference range was not used to interpr et this result as lashonda l/abnormal. [facility]2016-07-30 09:17:00 Test Item Value Reference Range Interpretation Comments Total Protein (test code = Total 5.0 6.4-8.4 Protein) [facility]2016-07-30 09:17:00 Test Item Value Reference Range Interpretation Comments Alk Phos (test code = Alk Phos) 73 39-136 [facility]2016-07-30 09:17:00 Test Item Value Reference Range Interpretation Comments ALT (test code = ALT) 29 See_Comment [Auto mated message] The system which ge nerated this result transmit juan reference range : <=65. The reference range was not used to interpr et this result as lashonda l/abnormal. [facility]2016-07-30 09:17:00 Test Item Value Reference Range Interpretation Comments Bili Total (test code = Bili Total) 0.7 0.2-1.3 [place] 315576-07-30 09:17:00 Test Item Value Reference Range Interpretation Comments Albumin Lvl (test code = Albumin Lvl) 2.7 3.5-5.0 [facility]2016-07-30 09:17:00 Test Item Value Reference Range Interpretation Comments AGAP (test code = AGAP) 10.9 10.0-20.0 [facility]2016-07-30 09:17:00 Test Item Value Reference Range Interpretation Comments Calcium Lvl (test code = Calcium Lvl) 10.0 8.5-10.5 [facility]2016-07-30 09:17:00 Test Item Value Reference Range Interpretation Comments Glucose Lvl (test code = Glucose Lvl) 208 70-99 [facility]2016-07-30 09:17:00 Test Item Value Reference Range Interpretation Comments Potassium Lvl (test code = Potassium 3.9 3.5-5.1 Lvl) [facility]2016-07-30 09:17:00 Test Item Value Reference Range Interpretation Comments BUN (test code = BUN) 20 7-22 [facility]2016-07-30 09:17:00 Test Item Value Reference Range Interpretation Comments Sodium Lvl (test code = Sodium Lvl) 145 135-145 [facility]2016-07-30 09:17:00 Test Item Value Reference Range Interpretation Comments Chloride Lvl (test code = Chloride Lvl) 109 95-109 [facility]2016-07-30 09:17:00 Test Item Value Reference Range Interpretation Comments CO2 (test code = CO2) 29 24-32 [facility]2016-07-30 09:17:00 Test Item Value Reference Range Interpretation Comments B/C Ratio (test code = B/C Ratio) 27 6-25 [facility]2016-07-30 09:17:00 Test Item Value Reference Range Interpretation Comments A/G Ratio (test code = A/G Ratio) 1.2 0.7-1.6 [facility]2016-07-30 09:17:00 Test Item Value Reference Range Interpretation Comments Globulin (test code = Globulin) 2.3 2.0-4.0 [facility] HospitalUrbtiywEHOBLCKBSM7974-51-13 09:17:00 Test Item Value Reference Range Interpretation Comments Monocytes (test code = Monocytes) 11.7 2.0-12.0 [facility] HospitalFenkreqLRUHJXSKKZ4991-78-59 09:17:00 Test Item Value Reference Range Interpretation Comments Segs-Bands # (test code = Segs-Bands #) 4.9 1.5-8.1 [facility] HospitalQsatnhoWVHQFDKYGP8770-33-42 09:17:00 Test Item Value Reference Range Interpretation Comments Basophils (test code = 0.4 See_Comment [Aut omated message] The Basophils) system which ge nerated this result tra nsmitted reference range : <=1.0. The reference r leatha was not used to int erpret this result as normal/abnormal . [facility] HospitalYqwflylXFDJGEIAJR7647-69-78 09:17:00 Test Item Value Reference Range Interpretation Comments Lymphocytes # (test code = Lymphocytes 1.3 1.0-5.5 #) [facility] HospitalUuoynsqLSZKVYPRZF9041-41-30 09:17:00 Test Item Value Reference Range Interpretation Comments Macrocyte (test code = 1+ *ABN*(01/15/16 Macrocyte) 4:17 AM) [facility] HospitalGsqfmadQSXLFPDZMN0078-54-32 09:17:00 Test Item Value Reference Range Interpretation Comments Segs (test code = Segs) 67.7 45.0-75.0 [facility] HospitalLscdrtfJSPPCLXMIS1242-38-41 09:17:00 Test Item Value Reference Range Interpretation Comments Lymphocytes (test code = Lymphocytes) 17.4 20.0-40.0 [facility] HospitalFfmmmodSRICJYWOEA2498-91-59 09:17:00 Test Item Value Reference Range Interpretation Comments Eosinophils (test code = 2.8 See_Comment [A utomated message] The Eosinophils) system which ge nerated this result tra nsmitted reference range : <=4.0. The reference r leatha was not used to int erpret this result as normal/abnormal . [facility] HospitalMjabdxdOFXSUIZGFG1498-31-18 09:17:00 Test Item Value Reference Range Interpretation Comments Basophils # (test code 0.0 See_Comment [Aut omated message] The = Basophils #) system which generated this result tra nsmitted reference range : <=0.2. The reference r leatha was not used to int erpret this result as normal/abnormal . [facility] HospitalCkqrcvfPPPGTHVWGO3853-22-34 09:17:00 Test Item Value Reference Range Interpretation Comments Eosinophils # (test code 0.2 See_Comment [A utomated message] The = Eosinophils #) system whic h generated this result tra nsmitted reference range : <=0.5. The reference r leatha was not used to int erpret this result as normal/abnormal . [facility] HospitalYenolyvHANJUMVQEY9130-67-21 09:17:00 Test Item Value Reference Range Interpretation Comments Monocytes # (test code 0.9 See_Comment [Aut omated message] The = Monocytes #) system which generated this result tra nsmitted reference range : <=0.8. The reference r leatha was not used to int erpret this result as normal/abnormal . [facility] HospitalXophirbUWNKATPRYH6624-35-30 09:17:00 Test Item Value Reference Range Interpretation Comments Platelet (test code = Platelet) 149 133-450 [facility] HospitalLsgiocqUASMAOBFZV0755-65-82 09:17:00 Test Item Value Reference Range Interpretation Comments WBC (test code = WBC) 7.3 3.7-10.4 [facility] HospitalAkszpbyURQBGGLJJE5621-16-99 09:17:00 Test Item Value Reference Range Interpretation Comments Hct (test code = Hct) 39.8 36.0-48.0 [facility] HospitalRptbbdqTCOXKVYEAH2011-21-52 09:17:00 Test Item Value Reference Range Interpretation Comments Hgb (test code = Hgb) 13.0 12.0-16.0 [facility] HospitalBijgrwoQWIWLKKLOI9331-11-34 09:17:00 Test Item Value Reference Range Interpretation Comments RBC (test code = RBC) 4.23 4.20-5.40 [facility] HospitalQtkftsyOTNREGHDLL6077-08-62 09:17:00 Test Item Value Reference Range Interpretation Comments MCHC (test code = MCHC) 32.8 32.0-36.0 [facility] HospitalGqhuwuiVLARLZIGEW0325-68-23 09:17:00 Test Item Value Reference Range Interpretation Comments MCV (test code = MCV) 94.0 80.0-98.0 [facility] HospitalVscasorPWSDBOJLZG1182-46-44 09:17:00 Test Item Value Reference Range Interpretation Comments MCH (test code = MCH) 30.8 pg 27.0-31.0 [facility] HospitalYxeyaleSCZWGUZSNP7528-31-70 09:17:00 Test Item Value Reference Range Interpretation Comments RDW (test code = RDW) 13.5 11.5-14.5 [facility] HospitalYzyxbzcSJANTMUTCN3529-62-07 09:17:00 Test Item Value Reference Range Interpretation Comments MPV (test code = MPV) 9.6 7.4-10.4 [facility]2016-07-30 09:17:00 Test Item Value Reference Range Interpretation Comments eGFR (test code = eGFR) 81 [facility]2016-07-30 09:17:00 Test Item Value Reference Range Interpretation Comments Creatinine Lvl (test code = Creatinine 0.73 0.50-1.40 Lvl) [facility]2016-07-30 09:17:00 Test Item Value Reference Range Interpretation Comments AST (test code = AST) 7 See_Comment [Auto mated message] The system which ge nerated this result transmit juan reference range : <=37. The reference range was not used to interpr et this result as lashonda l/abnormal. [facility]2016-07-30 09:17:00 Test Item Value Reference Range Interpretation Comments Total Protein (test code = Total 5.0 6.4-8.4 Protein) [facility]2016-07-30 09:17:00 Test Item Value Reference Range Interpretation Comments Alk Phos (test code = Alk Phos) 73 39-136 [facility]2016-07-30 09:17:00 Test Item Value Reference Range Interpretation Comments ALT (test code = ALT) 29 See_Comment [Auto mated message] The system which ge nerated this result transmit juan reference range : <=65. The reference range was not used to interpr et this result as lashonda l/abnormal. [facility]2016-07-30 09:17:00 Test Item Value Reference Range Interpretation Comments Bili Total (test code = Bili Total) 0.7 0.2-1.3 [facility]2016-07-30 09:17:00 Test Item Value Reference Range Interpretation Comments Albumin Lvl (test code = Albumin Lvl) 2.7 3.5-5.0 [facility]2016-07-30 09:17:00 Test Item Value Reference Range Interpretation Comments AGAP (test code = AGAP) 10.9 10.0-20.0 [facility]2016-07-30 09:17:00 Test Item Value Reference Range Interpretation Comments Calcium Lvl (test code = Calcium Lvl) 10.0 8.5-10.5 [facility]2016-07-30 09:17:00 Test Item Value Reference Range Interpretation Comments Glucose Lvl (test code = Glucose Lvl) 208 70-99 [place] 315576-07-30 09:17:00 Test Item Value Reference Range Interpretation Comments Potassium Lvl (test code = Potassium 3.9 3.5-5.1 Lvl) [facility]2016-07-30 09:17:00 Test Item Value Reference Range Interpretation Comments BUN (test code = BUN) 20 7-22 [facility]2016-07-30 09:17:00 Test Item Value Reference Range Interpretation Comments Sodium Lvl (test code = Sodium Lvl) 145 135-145 [facility]2016-07-30 09:17:00 Test Item Value Reference Range Interpretation Comments Chloride Lvl (test code = Chloride Lvl) 109 95-109 [facility]2016-07-30 09:17:00 Test Item Value Reference Range Interpretation Comments CO2 (test code = CO2) 29 24-32 [facility]2016-07-30 09:17:00 Test Item Value Reference Range Interpretation Comments B/C Ratio (test code = B/C Ratio) 27 6-25 [facility]2016-07-30 09:17:00 Test Item Value Reference Range Interpretation Comments A/G Ratio (test code = A/G Ratio) 1.2 0.7-1.6 [facility]2016-07-30 09:17:00 Test Item Value Reference Range Interpretation Comments Globulin (test code = Globulin) 2.3 2.0-4.0 [facility]ck[facility]vvWHMVPFJTCB2816-90-84 09:17:00 Test Item Value Reference Range Interpretation Comments Monocytes (test code = Monocytes) 11.7 2.0-12.0 [facility] HospitalRtfpvyuCWVBULOKLP4277-96-56 09:17:00 Test Item Value Reference Range Interpretation Comments Segs-Bands # (test code = Segs-Bands #) 4.9 1.5-8.1 [facility] HospitalLhwwaksBLJUNPYCVZ6352-70-83 09:17:00 Test Item Value Reference Range Interpretation Comments Basophils (test code = 0.4 See_Comment [Aut omated message] The Basophils) system which ge nerated this result tra nsmitted reference range : <=1.0. The reference r leatha was not used to int erpret this result as normal/abnormal . [facility] HospitalVdaokykKKHWYXYNEM3101-96-96 09:17:00 Test Item Value Reference Range Interpretation Comments Lymphocytes # (test code = Lymphocytes 1.3 1.0-5.5 #) [facility] HospitalJmycejaWDQNJMHVWP0517-98-53 09:17:00 Test Item Value Reference Range Interpretation Comments Macrocyte (test code = 1+ *ABN*(01/15/16 Macrocyte) 4:17 AM) [facility] HospitalSruuuqrMMLXCGJZMC7078-02-13 09:17:00 Test Item Value Reference Range Interpretation Comments Segs (test code = Segs) 67.7 45.0-75.0 [facility] HospitalDpcxzbiWSUIEUFLGB1808-52-81 09:17:00 Test Item Value Reference Range Interpretation Comments Lymphocytes (test code = Lymphocytes) 17.4 20.0-40.0 [facility] HospitalVrokbglODGEBQUAKO1963-17-63 09:17:00 Test Item Value Reference Range Interpretation Comments Eosinophils (test code = 2.8 See_Comment [A utomated message] The Eosinophils) system which ge nerated this result tra nsmitted reference range : <=4.0. The reference r leatha was not used to int erpret this result as normal/abnormal . [facility] HospitalUipzmvsQKUXSWTPKF5087-17-46 09:17:00 Test Item Value Reference Range Interpretation Comments Basophils # (test code 0.0 See_Comment [Aut omated message] The = Basophils #) system which generated this result tra nsmitted reference range : <=0.2. The reference r leatha was not used to int erpret this result as normal/abnormal . [facility] HospitalQujwhwnXUWFYXJJKZ0750-45-61 09:17:00 Test Item Value Reference Range Interpretation Comments Eosinophils # (test code 0.2 See_Comment [A utomated message] The = Eosinophils #) system whic h generated this result tra nsmitted reference range : <=0.5. The reference r leatha was not used to int erpret this result as normal/abnormal . [facility] HospitalPiqcrqzQKKFVOXNZB7322-34-91 09:17:00 Test Item Value Reference Range Interpretation Comments Monocytes # (test code 0.9 See_Comment [Aut omated message] The = Monocytes #) system which generated this result tra nsmitted reference range : <=0.8. The reference r leatha was not used to int erpret this result as normal/abnormal . [facility] HospitalPxdnrrzRBPGRTHCCN4428-28-43 09:17:00 Test Item Value Reference Range Interpretation Comments Platelet (test code = Platelet) 149 133-450 [facility] HospitalIgfblgnNFQXQLYPGT1492-02-93 09:17:00 Test Item Value Reference Range Interpretation Comments WBC (test code = WBC) 7.3 3.7-10.4 [facility] HospitalLtdifikGWPBGHRTVY4497-01-89 09:17:00 Test Item Value Reference Range Interpretation Comments Hct (test code = Hct) 39.8 36.0-48.0 [facility] HospitalPytiaqaVYYRVQSQLI6227-03-35 09:17:00 Test Item Value Reference Range Interpretation Comments Hgb (test code = Hgb) 13.0 12.0-16.0 [facility] HospitalTyhqrzeVEXCULVXBQ3329-18-72 09:17:00 Test Item Value Reference Range Interpretation Comments RBC (test code = RBC) 4.23 4.20-5.40 [facility] HospitalNhqdnsmGXVTHIWAHF5658-62-73 09:17:00 Test Item Value Reference Range Interpretation Comments MCHC (test code = MCHC) 32.8 32.0-36.0 [facility] HospitalOvgrvtlNGYVJZIJFQ9911-76-24 09:17:00 Test Item Value Reference Range Interpretation Comments MCV (test code = MCV) 94.0 80.0-98.0 [facility] HospitalJyblgrqEGGQBUVFAJ6589-45-39 09:17:00 Test Item Value Reference Range Interpretation Comments MCH (test code = MCH) 30.8 pg 27.0-31.0 [facility] HospitalXinzjhaQQFTDTJDYB9006-22-29 09:17:00 Test Item Value Reference Range Interpretation Comments RDW (test code = RDW) 13.5 11.5-14.5 [facility] HospitalCcoqydgIQISLNRBHN9069-75-75 09:17:00 Test Item Value Reference Range Interpretation Comments MPV (test code = MPV) 9.6 7.4-10.4 [facility]2016-07-30 09:17:00 Test Item Value Reference Range Interpretation Comments eGFR (test code = eGFR) 81 [facility]2016-07-30 09:17:00 Test Item Value Reference Range Interpretation Comments Creatinine Lvl (test code = Creatinine 0.73 0.50-1.40 Lvl) [facility]2016-07-30 09:17:00 Test Item Value Reference Range Interpretation Comments AST (test code = AST) 7 See_Comment [Auto mated message] The system which ge nerated this result transmit juan reference range : <=37. The reference range was not used to interpr et this result as lashonda l/abnormal. [facility]2016-07-30 09:17:00 Test Item Value Reference Range Interpretation Comments Total Protein (test code = Total 5.0 6.4-8.4 Protein) [facility]2016-07-30 09:17:00 Test Item Value Reference Range Interpretation Comments Alk Phos (test code = Alk Phos) 73 39-136 [facility]2016-07-30 09:17:00 Test Item Value Reference Range Interpretation Comments ALT (test code = ALT) 29 See_Comment [Auto mated message] The system which ge nerated this result transmit juan reference range : <=65. The reference range was not used to interpr et this result as lashonda l/abnormal. [facility]2016-07-30 09:17:00 Test Item Value Reference Range Interpretation Comments Bili Total (test code = Bili Total) 0.7 0.2-1.3 [facility]2016-07-30 09:17:00 Test Item Value Reference Range Interpretation Comments Albumin Lvl (test code = Albumin Lvl) 2.7 3.5-5.0 [facility]2016-07-30 09:17:00 Test Item Value Reference Range Interpretation Comments AGAP (test code = AGAP) 10.9 10.0-20.0 [facility]2016-07-30 09:17:00 Test Item Value Reference Range Interpretation Comments Calcium Lvl (test code = Calcium Lvl) 10.0 8.5-10.5 [facility]2016-07-30 09:17:00 Test Item Value Reference Range Interpretation Comments Glucose Lvl (test code = Glucose Lvl) 208 70-99 [facility]2016-07-30 09:17:00 Test Item Value Reference Range Interpretation Comments Potassium Lvl (test code = Potassium 3.9 3.5-5.1 Lvl) [facility]2016-07-30 09:17:00 Test Item Value Reference Range Interpretation Comments BUN (test code = BUN) 20 7-22 [facility]2016-07-30 09:17:00 Test Item Value Reference Range Interpretation Comments Sodium Lvl (test code = Sodium Lvl) 145 135-145 [facility]2016-07-30 09:17:00 Test Item Value Reference Range Interpretation Comments Chloride Lvl (test code = Chloride Lvl) 109 95-109 [facility]2016-07-30 09:17:00 Test Item Value Reference Range Interpretation Comments CO2 (test code = CO2) 29 24-32 [facility]2016-07-30 09:17:00 Test Item Value Reference Range Interpretation Comments B/C Ratio (test code = B/C Ratio) 27 6-25 [facility]2016-07-30 09:17:00 Test Item Value Reference Range Interpretation Comments A/G Ratio (test code = A/G Ratio) 1.2 0.7-1.6 [facility]2016-07-30 09:17:00 Test Item Value Reference Range Interpretation Comments eGFR (test code = eGFR) 81 [facility]2016-07-30 09:17:00 Test Item Value Reference Range Interpretation Comments Creatinine Lvl (test code = Creatinine 0.73 0.50-1.40 Lvl) [facility]2016-07-30 09:17:00 Test Item Value Reference Range Interpretation Comments AST (test code = AST) 7 See_Comment [Auto mated message] The system which ge nerated this result transmit juan reference range : <=37. The reference range was not used to interpr et this result as lashonda l/abnormal. [facility]2016-07-30 09:17:00 Test Item Value Reference Range Interpretation Comments Globulin (test code = Globulin) 2.3 2.0-4.0 [facility]2016-07-30 09:17:00 Test Item Value Reference Range Interpretation Comments Total Protein (test code = Total 5.0 6.4-8.4 Protein) [facility]2016-07-30 09:17:00 Test Item Value Reference Range Interpretation Comments Alk Phos (test code = Alk Phos) 73 39-136 [facility]2016-07-30 09:17:00 Test Item Value Reference Range Interpretation Comments ALT (test code = ALT) 29 See_Comment [Auto mated message] The system which ge nerated this result transmit juan reference range : <=65. The reference range was not used to interpr et this result as lashonda l/abnormal. [place] 315576-07-30 09:17:00 Test Item Value Reference Range Interpretation Comments Bili Total (test code = Bili Total) 0.7 0.2-1.3 [facility]2016-07-30 09:17:00 Test Item Value Reference Range Interpretation Comments Albumin Lvl (test code = Albumin Lvl) 2.7 3.5-5.0 [facility]2016-07-30 09:17:00 Test Item Value Reference Range Interpretation Comments AGAP (test code = AGAP) 10.9 10.0-20.0 [facility]2016-07-30 09:17:00 Test Item Value Reference Range Interpretation Comments Calcium Lvl (test code = Calcium Lvl) 10.0 8.5-10.5 [facility]2016-07-30 09:17:00 Test Item Value Reference Range Interpretation Comments Glucose Lvl (test code = Glucose Lvl) 208 70-99 [facility]2016-07-30 09:17:00 Test Item Value Reference Range Interpretation Comments Potassium Lvl (test code = Potassium 3.9 3.5-5.1 Lvl) [facility]2016-07-30 09:17:00 Test Item Value Reference Range Interpretation Comments BUN (test code = BUN) 20 7-22 [facility]OnhztbuLWGGYNSLBY4660-85-80 09:17:00 Test Item Value Reference Range Interpretation Comments Monocytes (test code = Monocytes) 11.7 2.0-12.0 [facility]2016-07-30 09:17:00 Test Item Value Reference Range Interpretation Comments Sodium Lvl (test code = Sodium Lvl) 145 135-145 [facility]2016-07-30 09:17:00 Test Item Value Reference Range Interpretation Comments Chloride Lvl (test code = Chloride Lvl) 109 95-109 [facility]2016-07-30 09:17:00 Test Item Value Reference Range Interpretation Comments CO2 (test code = CO2) 29 24-32 [facility]2016-07-30 09:17:00 Test Item Value Reference Range Interpretation Comments B/C Ratio (test code = B/C Ratio) 27 6-25 [facility]2016-07-30 09:17:00 Test Item Value Reference Range Interpretation Comments A/G Ratio (test code = A/G Ratio) 1.2 0.7-1.6 [facility]2016-07-30 09:17:00 Test Item Value Reference Range Interpretation Comments Globulin (test code = Globulin) 2.3 2.0-4.0 [facility]UudpzhtKPZVADVNDR5774-02-37 09:17:00 Test Item Value Reference Range Interpretation Comments Monocytes (test code = Monocytes) 11.7 2.0-12.0 [facility] HospitalYobvqagIYCCCIGQWO9761-16-26 09:17:00 Test Item Value Reference Range Interpretation Comments Segs-Bands # (test code = Segs-Bands #) 4.9 1.5-8.1 [facility] HospitalKjixqidENJGEGFVUU3207-37-51 09:17:00 Test Item Value Reference Range Interpretation Comments Basophils (test code = 0.4 See_Comment [Aut omated message] The Basophils) system which ge nerated this result tra nsmitted reference range : <=1.0. The reference r leatha was not used to int erpret this result as normal/abnormal . [facility] HospitalOnomdldYXGGEJEYBD7942-87-34 09:17:00 Test Item Value Reference Range Interpretation Comments Lymphocytes # (test code = Lymphocytes 1.3 1.0-5.5 #) [facility] HospitalImcqgnkIZYLSMVINR1846-52-06 09:17:00 Test Item Value Reference Range Interpretation Comments Segs-Bands # (test code = Segs-Bands #) 4.9 1.5-8.1 [facility] HospitalNgfxvpzESUFNGBSKH6776-88-28 09:17:00 Test Item Value Reference Range Interpretation Comments Macrocyte (test code = 1+ *ABN*(01/15/16 Macrocyte) 4:17 AM) [facility] HospitalSmiojcqNPIULSUZYI9066-16-49 09:17:00 Test Item Value Reference Range Interpretation Comments Segs (test code = Segs) 67.7 45.0-75.0 [facility] HospitalKzowmfsJXWPZGVVRB9150-42-62 09:17:00 Test Item Value Reference Range Interpretation Comments Lymphocytes (test code = Lymphocytes) 17.4 20.0-40.0 [facility] HospitalSfqsfcaKTLVHTKMEV8522-20-16 09:17:00 Test Item Value Reference Range Interpretation Comments Eosinophils (test code = 2.8 See_Comment [A utomated message] The Eosinophils) system which ge nerated this result tra nsmitted reference range : <=4.0. The reference r leatha was not used to int erpret this result as normal/abnormal . [facility] HospitalFwqxxmbBFLDKNMEQF6992-24-58 09:17:00 Test Item Value Reference Range Interpretation Comments Basophils # (test code 0.0 See_Comment [Aut omated message] The = Basophils #) system which generated this result tra nsmitted reference range : <=0.2. The reference r leatha was not used to int erpret this result as normal/abnormal . [facility] HospitalMkyjftyUZKOTRNNMX8950-38-92 09:17:00 Test Item Value Reference Range Interpretation Comments Eosinophils # (test code 0.2 See_Comment [A utomated message] The = Eosinophils #) system whic h generated this result tra nsmitted reference range : <=0.5. The reference r leatha was not used to int erpret this result as normal/abnormal . [facility] HospitalAmbihvdXZNVWJTKCJ2380-64-35 09:17:00 Test Item Value Reference Range Interpretation Comments Monocytes # (test code 0.9 See_Comment [Aut omated message] The = Monocytes #) system which generated this result tra nsmitted reference range : <=0.8. The reference r leatha was not used to int erpret this result as normal/abnormal . [facility] HospitalSjslkjgMUVSYSZISB0018-93-74 09:17:00 Test Item Value Reference Range Interpretation Comments Platelet (test code = Platelet) 149 133-450 [facility] HospitalGmcbmnmXGDHLOKTQP6569-13-83 09:17:00 Test Item Value Reference Range Interpretation Comments WBC (test code = WBC) 7.3 3.7-10.4 [facility] HospitalZckqlqiBPLKVSLAMT6378-90-32 09:17:00 Test Item Value Reference Range Interpretation Comments Hct (test code = Hct) 39.8 36.0-48.0 [facility] HospitalTlbbbzfCAEFAFKLBM0071-11-66 09:17:00 Test Item Value Reference Range Interpretation Comments Basophils (test code = 0.4 See_Comment [Aut omated message] The Basophils) system which ge nerated this result tra nsmitted reference range : <=1.0. The reference r leatha was not used to int erpret this result as normal/abnormal . [facility] HospitalMnhmkeuQLKMWHYBPG1725-16-97 09:17:00 Test Item Value Reference Range Interpretation Comments Hgb (test code = Hgb) 13.0 12.0-16.0 [facility] HospitalJvgbneeVYJHHVAOUC8899-16-50 09:17:00 Test Item Value Reference Range Interpretation Comments RBC (test code = RBC) 4.23 4.20-5.40 [facility] HospitalQncgaxlAUOJSHHOAG8520-23-37 09:17:00 Test Item Value Reference Range Interpretation Comments MCHC (test code = MCHC) 32.8 32.0-36.0 [facility] HospitalXouzqijHMUUWPYTQI5745-88-41 09:17:00 Test Item Value Reference Range Interpretation Comments MCV (test code = MCV) 94.0 80.0-98.0 [facility] HospitalYykbgndSGSXWYCJOP5303-23-83 09:17:00 Test Item Value Reference Range Interpretation Comments MCH (test code = MCH) 30.8 pg 27.0-31.0 [facility] HospitalXtpxixoKVPMAYSSKS1414-60-49 09:17:00 Test Item Value Reference Range Interpretation Comments RDW (test code = RDW) 13.5 11.5-14.5 [facility] HospitalZujfdwyMXVAVGFWXA1876-96-64 09:17:00 Test Item Value Reference Range Interpretation Comments MPV (test code = MPV) 9.6 7.4-10.4 [facility] HospitalLduxhkxVIGYHAFVFR0865-51-72 09:17:00 Test Item Value Reference Range Interpretation Comments Lymphocytes # (test code = Lymphocytes 1.3 1.0-5.5 #) [facility] HospitalNaqgthlILAIPRLRIG8253-63-61 09:17:00 Test Item Value Reference Range Interpretation Comments Macrocyte (test code = 1+ *ABN*(01/15/16 Macrocyte) 4:17 AM) [facility] HospitalDpmbrqnMPTURZLTZM5621-71-85 09:17:00 Test Item Value Reference Range Interpretation Comments Segs (test code = Segs) 67.7 45.0-75.0 [facility] HospitalOuqzlriSKEHMPJAEW1925-47-43 09:17:00 Test Item Value Reference Range Interpretation Comments Lymphocytes (test code = Lymphocytes) 17.4 20.0-40.0 [facility] HospitalTaslaozIPVPMRZOSO0272-13-02 09:17:00 Test Item Value Reference Range Interpretation Comments Eosinophils (test code = 2.8 See_Comment [A utomated message] The Eosinophils) system which ge nerated this result tra nsmitted reference range : <=4.0. The reference r leatha was not used to int erpret this result as normal/abnormal . [facility] HospitalYecwlekWPEMYMAUJO8668-92-38 09:17:00 Test Item Value Reference Range Interpretation Comments Basophils # (test code 0.0 See_Comment [Aut omated message] The = Basophils #) system which generated this result tra nsmitted reference range : <=0.2. The reference r leatha was not used to int erpret this result as normal/abnormal . [facility] HospitalOcojckmOCXTZKUMVD6654-24-63 09:17:00 Test Item Value Reference Range Interpretation Comments Eosinophils # (test code 0.2 See_Comment [A utomated message] The = Eosinophils #) system whic h generated this result tra nsmitted reference range : <=0.5. The reference r leatha was not used to int erpret this result as normal/abnormal . [facility] HospitalCofxrnqZMXGJUKWCG8700-63-77 09:17:00 Test Item Value Reference Range Interpretation Comments Monocytes # (test code 0.9 See_Comment [Aut omated message] The = Monocytes #) system which generated this result tra nsmitted reference range : <=0.8. The reference r leatha was not used to int erpret this result as normal/abnormal . [facility] HospitalGlahnncQFBOEFYHFO7365-62-58 09:17:00 Test Item Value Reference Range Interpretation Comments Platelet (test code = Platelet) 149 133-450 [facility] HospitalWslmvrpWAQJQOACVS9442-00-25 09:17:00 Test Item Value Reference Range Interpretation Comments WBC (test code = WBC) 7.3 3.7-10.4 [facility] HospitalYeogfdkNZTPRVRHAD1379-78-49 09:17:00 Test Item Value Reference Range Interpretation Comments Hct (test code = Hct) 39.8 36.0-48.0 [facility] HospitalNlrquhmDFIRLGWBCR1944-26-63 09:17:00 Test Item Value Reference Range Interpretation Comments Hgb (test code = Hgb) 13.0 12.0-16.0 [facility] HospitalSmqkexzARKOPPIFGR0820-13-47 09:17:00 Test Item Value Reference Range Interpretation Comments RBC (test code = RBC) 4.23 4.20-5.40 [facility] HospitalXxpkdtqQROQUQIDBE8943-23-39 09:17:00 Test Item Value Reference Range Interpretation Comments MCHC (test code = MCHC) 32.8 32.0-36.0 [facility] HospitalHqticrvDYBEJKHIWO1154-86-42 09:17:00 Test Item Value Reference Range Interpretation Comments MCV (test code = MCV) 94.0 80.0-98.0 [facility] HospitalSbvzcdaHIXTCGVKRV5513-67-97 09:17:00 Test Item Value Reference Range Interpretation Comments MCH (test code = MCH) 30.8 pg 27.0-31.0 [facility] HospitalYygoaqcZRQSMWFDEG5096-25-16 09:17:00 Test Item Value Reference Range Interpretation Comments RDW (test code = RDW) 13.5 11.5-14.5 [facility] HospitalActdqylURIXUYVFRK3449-65-74 09:17:00 Test Item Value Reference Range Interpretation Comments MPV (test code = MPV) 9.6 7.4-10.4 [facility]2016-07-30 09:17:00 Test Item Value Reference Range Interpretation Comments eGFR (test code = eGFR) 81 [facility]2016-07-30 09:17:00 Test Item Value Reference Range Interpretation Comments Creatinine Lvl (test code = Creatinine 0.73 0.50-1.40 Lvl) [facility]2016-07-30 09:17:00 Test Item Value Reference Range Interpretation Comments AST (test code = AST) 7 See_Comment [Auto mated message] The system which ge nerated this result transmit juan reference range : <=37. The reference range was not used to interpr et this result as lashonda l/abnormal. [facility]2016-07-30 09:17:00 Test Item Value Reference Range Interpretation Comments Total Protein (test code = Total 5.0 6.4-8.4 Protein) [facility]2016-07-30 09:17:00 Test Item Value Reference Range Interpretation Comments Alk Phos (test code = Alk Phos) 73 39-136 [facility]2016-07-30 09:17:00 Test Item Value Reference Range Interpretation Comments ALT (test code = ALT) 29 See_Comment [Auto mated message] The system which ge nerated this result transmit juan reference range : <=65. The reference range was not used to interpr et this result as lashonda l/abnormal. [facility]2016-07-30 09:17:00 Test Item Value Reference Range Interpretation Comments Bili Total (test code = Bili Total) 0.7 0.2-1.3 [facility] [facility]2016-07-30 09:17:00 Test Item Value Reference Range Interpretation Comments Albumin Lvl (test code = Albumin Lvl) 2.7 3.5-5.0 [facility]2016-07-30 09:17:00 Test Item Value Reference Range Interpretation Comments AGAP (test code = AGAP) 10.9 10.0-20.0 [facility]2016-07-30 09:17:00 Test Item Value Reference Range Interpretation Comments Calcium Lvl (test code = Calcium Lvl) 10.0 8.5-10.5 [facility]2016-07-30 09:17:00 Test Item Value Reference Range Interpretation Comments Glucose Lvl (test code = Glucose Lvl) 208 70-99 [facility]2016-07-30 09:17:00 Test Item Value Reference Range Interpretation Comments Potassium Lvl (test code = Potassium 3.9 3.5-5.1 Lvl) [facility]2016-07-30 09:17:00 Test Item Value Reference Range Interpretation Comments BUN (test code = BUN) 20 7-22 [facility]2016-07-30 09:17:00 Test Item Value Reference Range Interpretation Comments Sodium Lvl (test code = Sodium Lvl) 145 135-145 [facility]2016-07-30 09:17:00 Test Item Value Reference Range Interpretation Comments Chloride Lvl (test code = Chloride Lvl) 109 95-109 [facility]2016-07-30 09:17:00 Test Item Value Reference Range Interpretation Comments CO2 (test code = CO2) 29 24-32 [facility]2016-07-30 09:17:00 Test Item Value Reference Range Interpretation Comments B/C Ratio (test code = B/C Ratio) 27 6-25 [facility]2016-07-30 09:17:00 Test Item Value Reference Range Interpretation Comments A/G Ratio (test code = A/G Ratio) 1.2 0.7-1.6 [facility]2016-07-30 09:17:00 Test Item Value Reference Range Interpretation Comments Globulin (test code = Globulin) 2.3 2.0-4.0 [facility] 09:17:00 Test Item Value Reference Range Interpretation Comments Monocytes (test code = Monocytes) 11.7 2.0-12.0 [facility]NscqmogSEPLGOABUB6240-92-28 09:17:00 Test Item Value Reference Range Interpretation Comments Segs-Bands # (test code = Segs-Bands #) 4.9 1.5-8.1 [facility]QqyxlagQVAOEUCXPY4299-46-15 09:17:00 Test Item Value Reference Range Interpretation Comments Basophils (test code = 0.4 See_Comment [Aut omated message] The Basophils) system which ge nerated this result tra nsmitted reference range : <=1.0. The reference r leatha was not used to int erpret this result as normal/abnormal . [facility] HospitalCrerugzQFWRUMSDZU6448-28-87 09:17:00 Test Item Value Reference Range Interpretation Comments Lymphocytes # (test code = Lymphocytes 1.3 1.0-5.5 #) [facility] HospitalZoqbrscRATONRKBAI8925-06-42 09:17:00 Test Item Value Reference Range Interpretation Comments Macrocyte (test code = 1+ *ABN*(01/15/16 Macrocyte) 4:17 AM) [facility] HospitalHpigodjQVQYLBHYUX3386-87-01 09:17:00 Test Item Value Reference Range Interpretation Comments Segs (test code = Segs) 67.7 45.0-75.0 [facility] HospitalAisieswJTHSVBGHFZ7217-64-27 09:17:00 Test Item Value Reference Range Interpretation Comments Lymphocytes (test code = Lymphocytes) 17.4 20.0-40.0 [facility] HospitalQcdqnwsNTYHOJSJKY1090-05-23 09:17:00 Test Item Value Reference Range Interpretation Comments Eosinophils (test code = 2.8 See_Comment [A utomated message] The Eosinophils) system which ge nerated this result tra nsmitted reference range : <=4.0. The reference r leatha was not used to int erpret this result as normal/abnormal . [facility] HospitalWxymkayICCKVPIJTB2679-57-12 09:17:00 Test Item Value Reference Range Interpretation Comments Basophils # (test code 0.0 See_Comment [Aut omated message] The = Basophils #) system which generated this result tra nsmitted reference range : <=0.2. The reference r leatha was not used to int erpret this result as normal/abnormal . [facility] HospitalZcgcrzuFEPYYDPDYP8383-47-70 09:17:00 Test Item Value Reference Range Interpretation Comments Eosinophils # (test code 0.2 See_Comment [A utomated message] The = Eosinophils #) system whic h generated this result tra nsmitted reference range : <=0.5. The reference r leatha was not used to int erpret this result as normal/abnormal . [facility] HospitalPpqkunkNKPORYFDKO2869-70-86 09:17:00 Test Item Value Reference Range Interpretation Comments Monocytes # (test code 0.9 See_Comment [Aut omated message] The = Monocytes #) system which generated this result tra nsmitted reference range : <=0.8. The reference r leatha was not used to int erpret this result as normal/abnormal . [facility] HospitalVfcjffrFOKFTNUGYU2422-68-67 09:17:00 Test Item Value Reference Range Interpretation Comments Platelet (test code = Platelet) 149 133-450 [facility] HospitalXpkxubrRRJQPDBRHR3342-48-76 09:17:00 Test Item Value Reference Range Interpretation Comments WBC (test code = WBC) 7.3 3.7-10.4 [facility] HospitalAxaxumqURPTDBQLJZ6532-77-92 09:17:00 Test Item Value Reference Range Interpretation Comments Hct (test code = Hct) 39.8 36.0-48.0 [facility] HospitalAwockjpAFRNKIZFFJ6075-87-18 09:17:00 Test Item Value Reference Range Interpretation Comments Hgb (test code = Hgb) 13.0 12.0-16.0 [facility] HospitalRbwknquVXSCLEUZVX5510-16-30 09:17:00 Test Item Value Reference Range Interpretation Comments RBC (test code = RBC) 4.23 4.20-5.40 [facility] HospitalDktdvklAHSLJOAHAQ3176-74-36 09:17:00 Test Item Value Reference Range Interpretation Comments MCHC (test code = MCHC) 32.8 32.0-36.0 [facility] HospitalKmukhonPXTQTIYJNG0202-52-22 09:17:00 Test Item Value Reference Range Interpretation Comments MCV (test code = MCV) 94.0 80.0-98.0 [facility] HospitalJameaycZWRPAEABLR1438-36-74 09:17:00 Test Item Value Reference Range Interpretation Comments MCH (test code = MCH) 30.8 pg 27.0-31.0 [facility] HospitalEnbtsnjULJMDVMMVN1283-62-95 09:17:00 Test Item Value Reference Range Interpretation Comments RDW (test code = RDW) 13.5 11.5-14.5 [place] [id number] 09:17:00 Test Item Value Reference Range Interpretation Comments MPV (test code = MPV) 9.6 7.4-10.4 [facility]2016-07-30 09:17:00 Test Item Value Reference Range Interpretation Comments eGFR (test code = eGFR) 81 [facility]2016-07-30 09:17:00 Test Item Value Reference Range Interpretation Comments Creatinine Lvl (test code = Creatinine 0.73 0.50-1.40 Lvl) [place] 315576-07-30 09:17:00 Test Item Value Reference Range Interpretation Comments AST (test code = AST) 7 See_Comment [Auto mated message] The system which ge nerated this result transmit juan reference range : <=37. The reference range was not used to interpr et this result as lashonda l/abnormal. [facility]2016-07-30 09:17:00 Test Item Value Reference Range Interpretation Comments Total Protein (test code = Total 5.0 6.4-8.4 Protein) [facility]2016-07-30 09:17:00 Test Item Value Reference Range Interpretation Comments Alk Phos (test code = Alk Phos) 73 39-136 [facility]2016-07-30 09:17:00 Test Item Value Reference Range Interpretation Comments ALT (test code = ALT) 29 See_Comment [Auto mated message] The system which ge nerated this result transmit juan reference range : <=65. The reference range was not used to interpr et this result as lashonda l/abnormal. [facility]2016-07-30 09:17:00 Test Item Value Reference Range Interpretation Comments Bili Total (test code = Bili Total) 0.7 0.2-1.3 [facility]2016-07-30 09:17:00 Test Item Value Reference Range Interpretation Comments Albumin Lvl (test code = Albumin Lvl) 2.7 3.5-5.0 [facility]2016-07-30 09:17:00 Test Item Value Reference Range Interpretation Comments AGAP (test code = AGAP) 10.9 10.0-20.0 [facility]2016-07-30 09:17:00 Test Item Value Reference Range Interpretation Comments Calcium Lvl (test code = Calcium Lvl) 10.0 8.5-10.5 [facility]2016-07-30 09:17:00 Test Item Value Reference Range Interpretation Comments Glucose Lvl (test code = Glucose Lvl) 208 70-99 [facility]2016-07-30 09:17:00 Test Item Value Reference Range Interpretation Comments Potassium Lvl (test code = Potassium 3.9 3.5-5.1 Lvl) [facility]2016-07-30 09:17:00 Test Item Value Reference Range Interpretation Comments BUN (test code = BUN) 20 7-22 [facility]2016-07-30 09:17:00 Test Item Value Reference Range Interpretation Comments Sodium Lvl (test code = Sodium Lvl) 145 135-145 [facility]2016-07-30 09:17:00 Test Item Value Reference Range Interpretation Comments Chloride Lvl (test code = Chloride Lvl) 109 95-109 [facility]2016-07-30 09:17:00 Test Item Value Reference Range Interpretation Comments CO2 (test code = CO2) 29 24-32 [facility]2016-07-30 09:17:00 Test Item Value Reference Range Interpretation Comments B/C Ratio (test code = B/C Ratio) 27 6-25 [facility]2016-07-30 09:17:00 Test Item Value Reference Range Interpretation Comments A/G Ratio (test code = A/G Ratio) 1.2 0.7-1.6 [facility]2016-07-30 09:17:00 Test Item Value Reference Range Interpretation Comments Globulin (test code = Globulin) 2.3 2.0-4.0 [facility] HospitalXyftxmuBIYBUABCZK6471-67-45 09:17:00 Test Item Value Reference Range Interpretation Comments Monocytes (test code = Monocytes) 11.7 2.0-12.0 [facility] HospitalNpehrpwOKTVZMLVVH1103-63-42 09:17:00 Test Item Value Reference Range Interpretation Comments Segs-Bands # (test code = Segs-Bands #) 4.9 1.5-8.1 [facility] HospitalUfgzlmyTSBPARDMBM0095-40-44 09:17:00 Test Item Value Reference Range Interpretation Comments Basophils (test code = 0.4 See_Comment [Aut omated message] The Basophils) system which ge nerated this result tra nsmitted reference range : <=1.0. The reference r leatha was not used to int erpret this result as normal/abnormal . [facility] HospitalVxgrhmvHDQOIMRYZE3868-50-21 09:17:00 Test Item Value Reference Range Interpretation Comments Lymphocytes # (test code = Lymphocytes 1.3 1.0-5.5 #) [facility] HospitalPwowtogFKYPULOYAN6085-34-21 09:17:00 Test Item Value Reference Range Interpretation Comments Macrocyte (test code = 1+ *ABN*(01/15/16 Macrocyte) 4:17 AM) [facility] HospitalXripdqwTUHXPGNLLP2273-58-03 09:17:00 Test Item Value Reference Range Interpretation Comments Segs (test code = Segs) 67.7 45.0-75.0 [facility] HospitalJnwgwzlMHFSZQCRTM9429-50-13 09:17:00 Test Item Value Reference Range Interpretation Comments Lymphocytes (test code = Lymphocytes) 17.4 20.0-40.0 [facility] HospitalTghxkiyTFXUOHVBXN2584-28-20 09:17:00 Test Item Value Reference Range Interpretation Comments Eosinophils (test code = 2.8 See_Comment [A utomated message] The Eosinophils) system which ge nerated this result tra nsmitted reference range : <=4.0. The reference r leatha was not used to int erpret this result as normal/abnormal . [facility] HospitalFldgyupMXLAAQLDOC6252-91-82 09:17:00 Test Item Value Reference Range Interpretation Comments Basophils # (test code 0.0 See_Comment [Aut omated message] The = Basophils #) system which generated this result tra nsmitted reference range : <=0.2. The reference r leatha was not used to int erpret this result as normal/abnormal . [facility] HospitalRybpndcJICNCGMUNP5484-81-08 09:17:00 Test Item Value Reference Range Interpretation Comments Eosinophils # (test code 0.2 See_Comment [A utomated message] The = Eosinophils #) system whic h generated this result tra nsmitted reference range : <=0.5. The reference r leatha was not used to int erpret this result as normal/abnormal . [facility] HospitalKafdtfjSJIXAFZRGV2695-36-74 09:17:00 Test Item Value Reference Range Interpretation Comments Monocytes # (test code 0.9 See_Comment [Aut omated message] The = Monocytes #) system which generated this result tra nsmitted reference range : <=0.8. The reference r leatha was not used to int erpret this result as normal/abnormal . [facility] HospitalFewvlszKTAQJUAKXM0760-19-24 09:17:00 Test Item Value Reference Range Interpretation Comments Platelet (test code = Platelet) 149 133-450 [facility] HospitalJupefjeCQXJOISQLF9041-70-02 09:17:00 Test Item Value Reference Range Interpretation Comments WBC (test code = WBC) 7.3 3.7-10.4 [facility] HospitalOkbbstyBYAONWOVLS2042-65-06 09:17:00 Test Item Value Reference Range Interpretation Comments Hct (test code = Hct) 39.8 36.0-48.0 [facility] HospitalPmymdtfBEKWQCOHTP3483-30-22 09:17:00 Test Item Value Reference Range Interpretation Comments Hgb (test code = Hgb) 13.0 12.0-16.0 [facility] HospitalDxbotxwMNDNGINFCP4506-09-72 09:17:00 Test Item Value Reference Range Interpretation Comments RBC (test code = RBC) 4.23 4.20-5.40 [facility] HospitalMnmngbuKUYRDWOFNV1488-32-49 09:17:00 Test Item Value Reference Range Interpretation Comments MCHC (test code = MCHC) 32.8 32.0-36.0 [facility] HospitalGikpoxzCBKBMLWEDN1112-80-26 09:17:00 Test Item Value Reference Range Interpretation Comments MCV (test code = MCV) 94.0 80.0-98.0 [facility] HospitalXxwitjfBGNRFYAQAL8255-53-56 09:17:00 Test Item Value Reference Range Interpretation Comments MCH (test code = MCH) 30.8 pg 27.0-31.0 [facility] HospitalRcrhwvwUYKFUEXKHI0289-26-20 09:17:00 Test Item Value Reference Range Interpretation Comments RDW (test code = RDW) 13.5 11.5-14.5 [facility] HospitalLlusrynTFTIKGTXND0335-08-02 09:17:00 Test Item Value Reference Range Interpretation Comments MPV (test code = MPV) 9.6 7.4-10.4 [facility]2016-07-29 10:06:00 Test Item Value Reference Range Interpretation Comments Glucose Lvl (test code = Glucose Lvl) 133 70-99 [facility]2016-07-29 10:06:00 Test Item Value Reference Range Interpretation Comments BUN (test code = BUN) 15 7- [facility]2016-07-29 10:06:00 Test Item Value Reference Range Interpretation Comments AGAP (test code = AGAP) 11.7 10.0-20.0 [facility]2016-07-29 10:06:00 Test Item Value Reference Range Interpretation Comments Calcium Lvl (test code = Calcium Lvl) 10.1 8.5-10.5 [facility]2016-07-29 10:06:00 Test Item Value Reference Range Interpretation Comments Potassium Lvl (test code = Potassium 3.7 3.5-5.1 Lvl) [facility]2016-07-29 10:06:00 Test Item Value Reference Range Interpretation Comments Sodium Lvl (test code = Sodium Lvl) 145 135-145 [facility]2016-07-29 10:06:00 Test Item Value Reference Range Interpretation Comments CO2 (test code = CO2) 28 24-32 [facility]2016-07-29 10:06:00 Test Item Value Reference Range Interpretation Comments Chloride Lvl (test code = Chloride Lvl) 109 95-109 [facility]2016-07-29 10:06:00 Test Item Value Reference Range Interpretation Comments Creatinine Lvl (test code = Creatinine 0.70 0.50-1.40 Lvl) [facility]2016-07-29 10:06:00 Test Item Value Reference Range Interpretation Comments eGFR (test code = eGFR) 86 [facility]2016-07-29 10:06:00 Test Item Value Reference Range Interpretation Comments Glucose Lvl (test code = Glucose Lvl) 133 70-99 [facility]2016-07-29 10:06:00 Test Item Value Reference Range Interpretation Comments BUN (test code = BUN) 15 7- [facility]2016-07-29 10:06:00 Test Item Value Reference Range Interpretation Comments AGAP (test code = AGAP) 11.7 10.0-20.0 [facility]2016-07-29 10:06:00 Test Item Value Reference Range Interpretation Comments Calcium Lvl (test code = Calcium Lvl) 10.1 8.5-10.5 [facility]2016-07-29 10:06:00 Test Item Value Reference Range Interpretation Comments Potassium Lvl (test code = Potassium 3.7 3.5-5.1 Lvl) [facility]2016-07-29 10:06:00 Test Item Value Reference Range Interpretation Comments Sodium Lvl (test code = Sodium Lvl) 145 135-145 [facility]2016-07-29 10:06:00 Test Item Value Reference Range Interpretation Comments CO2 (test code = CO2) [facility]2016-07-29 10:06:00 Test Item Value Reference Range Interpretation Comments Chloride Lvl (test code = Chloride Lvl) 109 95-109 [facility]2016-07-29 10:06:00 Test Item Value Reference Range Interpretation Comments Creatinine Lvl (test code = Creatinine 0.70 0.50-1.40 Lvl) [facility]2016-07-29 10:06:00 Test Item Value Reference Range Interpretation Comments eGFR (test code = eGFR) 86 [facility]2016-07-29 10:06:00 Test Item Value Reference Range Interpretation Comments Glucose Lvl (test code = Glucose Lvl) 133 70-99 [facility]2016-07-29 10:06:00 Test Item Value Reference Range Interpretation Comments BUN (test code = BUN) 15 7-22 [facility]2016-07-29 10:06:00 Test Item Value Reference Range Interpretation Comments AGAP (test code = AGAP) 11.7 10.0-20.0 [facility]2016-07-29 10:06:00 Test Item Value Reference Range Interpretation Comments Calcium Lvl (test code = Calcium Lvl) 10.1 8.5-10.5 [facility]2016-07-29 10:06:00 Test Item Value Reference Range Interpretation Comments Potassium Lvl (test code = Potassium 3.7 3.5-5.1 Lvl) [facility]2016-07-29 10:06:00 Test Item Value Reference Range Interpretation Comments Sodium Lvl (test code = Sodium Lvl) 145 135-145 [facility]2016-07-29 10:06:00 Test Item Value Reference Range Interpretation Comments CO2 (test code = CO2) -32 [facility]2016-07-29 10:06:00 Test Item Value Reference Range Interpretation Comments Chloride Lvl (test code = Chloride Lvl) 109 95-109 [facility]2016-07-29 10:06:00 Test Item Value Reference Range Interpretation Comments Creatinine Lvl (test code = Creatinine 0.70 0.50-1.40 Lvl) [facility]2016-07-29 10:06:00 Test Item Value Reference Range Interpretation Comments eGFR (test code = eGFR) 86 [facility]2016-07-29 10:06:00 Test Item Value Reference Range Interpretation Comments Glucose Lvl (test code = Glucose Lvl) 133 70-99 [facility]2016-07-29 10:06:00 Test Item Value Reference Range Interpretation Comments BUN (test code = BUN) 15 7-22 [facility]2016-07-29 10:06:00 Test Item Value Reference Range Interpretation Comments AGAP (test code = AGAP) 11.7 10.0-20.0 [facility]2016-07-29 10:06:00 Test Item Value Reference Range Interpretation Comments Calcium Lvl (test code = Calcium Lvl) 10.1 8.5-10.5 [facility]2016-07-29 10:06:00 Test Item Value Reference Range Interpretation Comments Potassium Lvl (test code = Potassium 3.7 3.5-5.1 Lvl) [facility]2016-07-29 10:06:00 Test Item Value Reference Range Interpretation Comments Sodium Lvl (test code = Sodium Lvl) 145 135-145 [facility]2016-07-29 10:06:00 Test Item Value Reference Range Interpretation Comments CO2 (test code = CO2) 28 24-32 [facility]2016-07-29 10:06:00 Test Item Value Reference Range Interpretation Comments Chloride Lvl (test code = Chloride Lvl) 109 95-109 [facility]2016-07-29 10:06:00 Test Item Value Reference Range Interpretation Comments Creatinine Lvl (test code = Creatinine 0.70 0.50-1.40 Lvl) [facility]2016-07-29 10:06:00 Test Item Value Reference Range Interpretation Comments eGFR (test code = eGFR) 86 [facility]2016-07-29 10:06:00 Test Item Value Reference Range Interpretation Comments Glucose Lvl (test code = Glucose Lvl) 133 70-99 [facility]2016-07-29 10:06:00 Test Item Value Reference Range Interpretation Comments BUN (test code = BUN) 15 01-06 [facility]2016-07-29 10:06:00 Test Item Value Reference Range Interpretation Comments AGAP (test code = AGAP) 11.7 10.0-20.0 [facility]2016-07-29 10:06:00 Test Item Value Reference Range Interpretation Comments Calcium Lvl (test code = Calcium Lvl) 10.1 8.5-10.5 [facility]2016-07-29 10:06:00 Test Item Value Reference Range Interpretation Comments Potassium Lvl (test code = Potassium 3.7 3.5-5.1 Lvl) [facility]2016-07-29 10:06:00 Test Item Value Reference Range Interpretation Comments Sodium Lvl (test code = Sodium Lvl) 145 135-145 [facility]2016-07-29 10:06:00 Test Item Value Reference Range Interpretation Comments CO2 (test code = CO2) 28 24-32 [facility]2016-07-29 10:06:00 Test Item Value Reference Range Interpretation Comments Chloride Lvl (test code = Chloride Lvl) 109 95-109 [facility]2016-07-29 10:06:00 Test Item Value Reference Range Interpretation Comments Creatinine Lvl (test code = Creatinine 0.70 0.50-1.40 Lvl) [facility]2016-07-29 10:06:00 Test Item Value Reference Range Interpretation Comments eGFR (test code = eGFR) 86 [facility]2016-07-29 10:06:00 Test Item Value Reference Range Interpretation Comments Glucose Lvl (test code = Glucose Lvl) 133 70-99 [facility]2016-07-29 10:06:00 Test Item Value Reference Range Interpretation Comments BUN (test code = BUN) 15 01-06 [facility]2016-07-29 10:06:00 Test Item Value Reference Range Interpretation Comments AGAP (test code = AGAP) 11.7 10.0-20.0 [facility]2016-07-29 10:06:00 Test Item Value Reference Range Interpretation Comments Calcium Lvl (test code = Calcium Lvl) 10.1 8.5-10.5 [facility]2016-07-29 10:06:00 Test Item Value Reference Range Interpretation Comments Potassium Lvl (test code = Potassium 3.7 3.5-5.1 Lvl) [facility]2016-07-29 10:06:00 Test Item Value Reference Range Interpretation Comments Sodium Lvl (test code = Sodium Lvl) 145 135-145 [facility]2016-07-29 10:06:00 Test Item Value Reference Range Interpretation Comments CO2 (test code = CO2) 28 24-32 [facility]2016-07-29 10:06:00 Test Item Value Reference Range Interpretation Comments Chloride Lvl (test code = Chloride Lvl) 109 95-109 [facility]2016-07-29 10:06:00 Test Item Value Reference Range Interpretation Comments Creatinine Lvl (test code = Creatinine 0.70 0.50-1.40 Lvl) [facility]2016-07-29 10:06:00 Test Item Value Reference Range Interpretation Comments eGFR (test code = eGFR) 86 [facility]2016-07-29 10:06:00 Test Item Value Reference Range Interpretation Comments Glucose Lvl (test code = Glucose Lvl) 133 70-99 [facility]2016-07-29 10:06:00 Test Item Value Reference Range Interpretation Comments BUN (test code = BUN) 15 7-22 [facility]2016-07-29 10:06:00 Test Item Value Reference Range Interpretation Comments AGAP (test code = AGAP) 11.7 10.0-20.0 [facility]2016-07-29 10:06:00 Test Item Value Reference Range Interpretation Comments Calcium Lvl (test code = Calcium Lvl) 10.1 8.5-10.5 [facility]2016-07-29 10:06:00 Test Item Value Reference Range Interpretation Comments Potassium Lvl (test code = Potassium 3.7 3.5-5.1 Lvl) [facility]2016-07-29 10:06:00 Test Item Value Reference Range Interpretation Comments Sodium Lvl (test code = Sodium Lvl) 145 135-145 [facility]2016-07-29 10:06:00 Test Item Value Reference Range Interpretation Comments CO2 (test code = CO2) 28 [facility]2016-07-29 10:06:00 Test Item Value Reference Range Interpretation Comments Chloride Lvl (test code = Chloride Lvl) 109 95-109 [facility]2016-07-29 10:06:00 Test Item Value Reference Range Interpretation Comments Creatinine Lvl (test code = Creatinine 0.70 0.50-1.40 Lvl) [facility]2016-07-29 10:06:00 Test Item Value Reference Range Interpretation Comments eGFR (test code = eGFR) 86 [facility]2016-07-29 10:06:00 Test Item Value Reference Range Interpretation Comments Glucose Lvl (test code = Glucose Lvl) 133 70-99 [facility]2016-07-29 10:06:00 Test Item Value Reference Range Interpretation Comments BUN (test code = BUN) 15 7-22 [facility]2016-07-29 10:06:00 Test Item Value Reference Range Interpretation Comments AGAP (test code = AGAP) 11.7 10.0-20.0 [facility]2016-07-29 10:06:00 Test Item Value Reference Range Interpretation Comments Calcium Lvl (test code = Calcium Lvl) 10.1 8.5-10.5 [facility]2016-07-29 10:06:00 Test Item Value Reference Range Interpretation Comments Potassium Lvl (test code = Potassium 3.7 3.5-5.1 Lvl) [facility]2016-07-29 10:06:00 Test Item Value Reference Range Interpretation Comments Sodium Lvl (test code = Sodium Lvl) 145 135-145 [facility]2016-07-29 10:06:00 Test Item Value Reference Range Interpretation Comments CO2 (test code = CO2) 28 [facility]2016-07-29 10:06:00 Test Item Value Reference Range Interpretation Comments Chloride Lvl (test code = Chloride Lvl) 109 95-109 [facility]2016-07-29 10:06:00 Test Item Value Reference Range Interpretation Comments Creatinine Lvl (test code = Creatinine 0.70 0.50-1.40 Lvl) [facility]2016-07-29 10:06:00 Test Item Value Reference Range Interpretation Comments eGFR (test code = eGFR) 86 [facility]2016-07-28 10:43:00 Test Item Value Reference Range Interpretation Comments Total Protein (test code = Total 4.9 6.4-8.4 Protein) [facility]2016-07-28 10:43:00 Test Item Value Reference Range Interpretation Comments Alk Phos (test code = Alk Phos) 60 39-136 [facility]2016-07-28 10:43:00 Test Item Value Reference Range Interpretation Comments Bili Total (test code = Bili Total) 0.4 0.2-1.3 [facility]2016-07-28 10:43:00 Test Item Value Reference Range Interpretation Comments ALT (test code = ALT) 22 See_Comment [Auto mated message] The system which ge nerated this result transmit juan reference range : <=65. The reference range was not used to interpr et this result as lashonda l/abnormal. [facility]2016-07-28 10:43:00 Test Item Value Reference Range Interpretation Comments AST (test code = AST) 12 See_Comment [Auto mated message] The system which ge nerated this result transmit juan reference range : <=37. The reference range was not used to interpr et this result as lashonda l/abnormal. [facility]2016-07-28 10:43:00 Test Item Value Reference Range Interpretation Comments Albumin Lvl (test code = Albumin Lvl) 2.7 3.5-5.0 [facility]2016-07-28 10:43:00 Test Item Value Reference Range Interpretation Comments Globulin (test code = Globulin) 2.2 2.0-4.0 [facility]2016-07-28 10:43:00 Test Item Value Reference Range Interpretation Comments A/G Ratio (test code = A/G Ratio) 1.2 0.7-1.6 [facility]2016-07-28 10:43:00 Test Item Value Reference Range Interpretation Comments B/C Ratio (test code = B/C Ratio) 23 6-25 [facility]TxcycwsAYNFADURRE0189-48-13 10:43:00 Test Item Value Reference Range Interpretation Comments RBC (test code = RBC) 4.18 4.20-5.40 [facility]ZvlxqqnJQZAUFUUOO8007-37-24 10:43:00 Test Item Value Reference Range Interpretation Comments WBC (test code = WBC) 6.7 3.7-10.4 [facility] HospitalMjrsbnaGNCYLYOGPW2949-56-24 10:43:00 Test Item Value Reference Range Interpretation Comments MPV (test code = MPV) 9.3 7.4-10.4 [facility] HospitalBffyzudKDMMVLCVQD2138-67-66 10:43:00 Test Item Value Reference Range Interpretation Comments Platelet (test code = Platelet) 159 133-450 [facility] HospitalSixpvsrOTVFTHZRYY6391-83-02 10:43:00 Test Item Value Reference Range Interpretation Comments RDW (test code = RDW) 12.8 11.5-14.5 [facility] HospitalJzsliouZGPVIPOEIR1086-69-68 10:43:00 Test Item Value Reference Range Interpretation Comments MCH (test code = MCH) 30.7 pg 27.0-31.0 [facility] HospitalEoeeuaqZUEBYJFCMP5744-01-98 10:43:00 Test Item Value Reference Range Interpretation Comments MCV (test code = MCV) 93.8 80.0-98.0 [facility] HospitalNaxsgpnSJXZLXSOLN2589-09-74 10:43:00 Test Item Value Reference Range Interpretation Comments Hct (test code = Hct) 39.2 36.0-48.0 [facility] HospitalDpjukcyJLEVPAPYWZ0708-74-20 10:43:00 Test Item Value Reference Range Interpretation Comments Hgb (test code = Hgb) 12.8 12.0-16.0 [facility] HospitalUydysoxBHORDTMCDP0113-26-90 10:43:00 Test Item Value Reference Range Interpretation Comments MCHC (test code = MCHC) 32.8 32.0-36.0 [facility] HospitalXgaapsnSIVFESZKTK2175-14-98 10:43:00 Test Item Value Reference Range Interpretation Comments Lymphocytes (test code = Lymphocytes) 21.4 20.0-40.0 [facility] HospitalVqqqgunNCTKYOYMIQ2209-91-67 10:43:00 Test Item Value Reference Range Interpretation Comments Segs (test code = Segs) 64.1 45.0-75.0 [facility] HospitalFouvccjMLNRBIZKML5568-30-62 10:43:00 Test Item Value Reference Range Interpretation Comments Eosinophils (test code = 3.1 See_Comment [A utomated message] The Eosinophils) system which ge nerated this result tra nsmitted reference range : <=4.0. The reference r leatha was not used to int erpret this result as normal/abnormal . [facility] HospitalYppljgcJKQKIZPBFL4980-55-12 10:43:00 Test Item Value Reference Range Interpretation Comments Monocytes (test code = Monocytes) 10.9 2.0-12.0 [facility] HospitalUjcgdapHLHRWEMGTE8383-28-34 10:43:00 Test Item Value Reference Range Interpretation Comments Basophils (test code = 0.5 See_Comment [Aut omated message] The Basophils) system which ge nerated this result tra nsmitted reference range : <=1.0. The reference r leatha was not used to int erpret this result as normal/abnormal . [facility] HospitalCsqxdqjBZGWAWLKGU1082-32-26 10:43:00 Test Item Value Reference Range Interpretation Comments Basophils # (test code 0.0 See_Comment [Aut omated message] The = Basophils #) system which generated this result tra nsmitted reference range : <=0.2. The reference r leatha was not used to int erpret this result as normal/abnormal . [facility] HospitalMjzkcszPAWWCQVPFB1501-47-27 10:43:00 Test Item Value Reference Range Interpretation Comments Eosinophils # (test code 0.2 See_Comment [A utomated message] The = Eosinophils #) system whic h generated this result tra nsmitted reference range : <=0.5. The reference r leatha was not used to int erpret this result as normal/abnormal . [facility] HospitalEpthejvUIYJZYPGRP2892-98-73 10:43:00 Test Item Value Reference Range Interpretation Comments Monocytes # (test code 0.7 See_Comment [Aut omated message] The = Monocytes #) system which generated this result tra nsmitted reference range : <=0.8. The reference r leatha was not used to int erpret this result as normal/abnormal . [facility] HospitalNxbnojyOEUJOSWYJR5946-40-20 10:43:00 Test Item Value Reference Range Interpretation Comments Lymphocytes # (test code = Lymphocytes 1.4 1.0-5.5 #) [facility] HospitalIolptmtSYTIRZDPZY8920-08-79 10:43:00 Test Item Value Reference Range Interpretation Comments Segs-Bands # (test code = Segs-Bands #) 4.3 1.5-8.1 [facility]2016-07-28 10:43:00 Test Item Value Reference Range Interpretation Comments Total Protein (test code = Total 4.9 6.4-8.4 Protein) [facility]2016-07-28 10:43:00 Test Item Value Reference Range Interpretation Comments Alk Phos (test code = Alk Phos) 60 39-136 [facility]2016-07-28 10:43:00 Test Item Value Reference Range Interpretation Comments Bili Total (test code = Bili Total) 0.4 0.2-1.3 [facility]2016-07-28 10:43:00 Test Item Value Reference Range Interpretation Comments ALT (test code = ALT) 22 See_Comment [Auto mated message] The system which ge nerated this result transmit juan reference range : <=65. The reference range was not used to interpr et this result as lashonda l/abnormal. [facility]2016-07-28 10:43:00 Test Item Value Reference Range Interpretation Comments AST (test code = AST) 12 See_Comment [Auto mated message] The system which ge nerated this result transmit juan reference range : <=37. The reference range was not used to interpr et this result as lashonda l/abnormal. [facility]2016-07-28 10:43:00 Test Item Value Reference Range Interpretation Comments Albumin Lvl (test code = Albumin Lvl) 2.7 3.5-5.0 [facility]2016-07-28 10:43:00 Test Item Value Reference Range Interpretation Comments Globulin (test code = Globulin) 2.2 2.0-4.0 [facility]2016-07-28 10:43:00 Test Item Value Reference Range Interpretation Comments A/G Ratio (test code = A/G Ratio) 1.2 0.7-1.6 [facility]2016-07-28 10:43:00 Test Item Value Reference Range Interpretation Comments B/C Ratio (test code = B/C Ratio) 23 6-25 [facility] HospitalEkskyijGBSFLLEZTJ3283-77-16 10:43:00 Test Item Value Reference Range Interpretation Comments RBC (test code = RBC) 4.18 4.20-5.40 [facility] HospitalIxztdpuMBBQVVWWRJ8308-84-15 10:43:00 Test Item Value Reference Range Interpretation Comments WBC (test code = WBC) 6.7 3.7-10.4 [facility] HospitalDiurbonEYHDYYKMWQ2360-96-46 10:43:00 Test Item Value Reference Range Interpretation Comments MPV (test code = MPV) 9.3 7.4-10.4 [facility] HospitalChjmhrzDUNBFTKGXN8779-37-11 10:43:00 Test Item Value Reference Range Interpretation Comments Platelet (test code = Platelet) 159 133-450 [facility] HospitalEwwymjbWSFNZYGANP6607-07-85 10:43:00 Test Item Value Reference Range Interpretation Comments RDW (test code = RDW) 12.8 11.5-14.5 [facility] HospitalQuhwgsyVRYUSMFTWE7864-59-52 10:43:00 Test Item Value Reference Range Interpretation Comments MCH (test code = MCH) 30.7 pg 27.0-31.0 [facility] HospitalKizqyoeRGWJWZWUUE7037-61-19 10:43:00 Test Item Value Reference Range Interpretation Comments MCV (test code = MCV) 93.8 80.0-98.0 [facility] HospitalHphztpjWFNVOLSYHM5953-31-50 10:43:00 Test Item Value Reference Range Interpretation Comments Hct (test code = Hct) 39.2 36.0-48.0 [facility] HospitalVdsbofzKLFTORELDE5807-92-62 10:43:00 Test Item Value Reference Range Interpretation Comments Hgb (test code = Hgb) 12.8 12.0-16.0 [facility] HospitalHjqbsylFDEJORATYY0926-77-07 10:43:00 Test Item Value Reference Range Interpretation Comments MCHC (test code = MCHC) 32.8 32.0-36.0 [facility] HospitalLsktawrCXAVSOVCAR6287-30-62 10:43:00 Test Item Value Reference Range Interpretation Comments Lymphocytes (test code = Lymphocytes) 21.4 20.0-40.0 [facility] HospitalWugehrjRMPMIXXIJG6176-39-76 10:43:00 Test Item Value Reference Range Interpretation Comments Segs (test code = Segs) 64.1 45.0-75.0 [facility] HospitalAxgrvncSICZTQRDXF6082-39-61 10:43:00 Test Item Value Reference Range Interpretation Comments Eosinophils (test code = 3.1 See_Comment [A utomated message] The Eosinophils) system which ge nerated this result tra nsmitted reference range : <=4.0. The reference r leatha was not used to int erpret this result as normal/abnormal . [facility] HospitalNobtqtlMIAIMHUVHO2342-33-55 10:43:00 Test Item Value Reference Range Interpretation Comments Monocytes (test code = Monocytes) 10.9 2.0-12.0 [facility] HospitalWeazyuqNDZQLBIYPZ4518-77-60 10:43:00 Test Item Value Reference Range Interpretation Comments Basophils (test code = 0.5 See_Comment [Aut omated message] The Basophils) system which ge nerated this result tra nsmitted reference range : <=1.0. The reference r leatha was not used to int erpret this result as normal/abnormal . [facility] HospitalKqwyvpzZRGEWJNRJP2367-83-10 10:43:00 Test Item Value Reference Range Interpretation Comments Basophils # (test code 0.0 See_Comment [Aut omated message] The = Basophils #) system which generated this result tra nsmitted reference range : <=0.2. The reference r leatha was not used to int erpret this result as normal/abnormal . [facility] HospitalHqdvaqaWCBNPJNBQZ7072-64-02 10:43:00 Test Item Value Reference Range Interpretation Comments Eosinophils # (test code 0.2 See_Comment [A utomated message] The = Eosinophils #) system whic h generated this result tra nsmitted reference range : <=0.5. The reference r leatha was not used to int erpret this result as normal/abnormal . [facility] HospitalTfhbblzJAZJWPTRKJ8382-61-22 10:43:00 Test Item Value Reference Range Interpretation Comments Monocytes # (test code 0.7 See_Comment [Aut omated message] The = Monocytes #) system which generated this result tra nsmitted reference range : <=0.8. The reference r leatha was not used to int erpret this result as normal/abnormal . [facility] HospitalSkqnxsjOGISGFGFOD0426-35-29 10:43:00 Test Item Value Reference Range Interpretation Comments Lymphocytes # (test code = Lymphocytes 1.4 1.0-5.5 #) [facility] HospitalVibvnsbWGDCJRHREH3775-85-04 10:43:00 Test Item Value Reference Range Interpretation Comments Segs-Bands # (test code = Segs-Bands #) 4.3 1.5-8.1 [facility]2016-07-28 10:43:00 Test Item Value Reference Range Interpretation Comments Total Protein (test code = Total 4.9 6.4-8.4 Protein) [facility]2016-07-28 10:43:00 Test Item Value Reference Range Interpretation Comments Alk Phos (test code = Alk Phos) 60 39-136 [facility]2016-07-28 10:43:00 Test Item Value Reference Range Interpretation Comments Bili Total (test code = Bili Total) 0.4 0.2-1.3 [facility]2016-07-28 10:43:00 Test Item Value Reference Range Interpretation Comments ALT (test code = ALT) 22 See_Comment [Auto mated message] The system which ge nerated this result transmit juan reference range : <=65. The reference range was not used to interpr et this result as lashonda l/abnormal. [facility]2016-07-28 10:43:00 Test Item Value Reference Range Interpretation Comments AST (test code = AST) 12 See_Comment [Auto mated message] The system which ge nerated this result transmit juan reference range : <=37. The reference range was not used to interpr et this result as lashonda l/abnormal. [facility]2016-07-28 10:43:00 Test Item Value Reference Range Interpretation Comments Albumin Lvl (test code = Albumin Lvl) 2.7 3.5-5.0 [facility]2016-07-28 10:43:00 Test Item Value Reference Range Interpretation Comments Globulin (test code = Globulin) 2.2 2.0-4.0 [facility]2016-07-28 10:43:00 Test Item Value Reference Range Interpretation Comments A/G Ratio (test code = A/G Ratio) 1.2 0.7-1.6 [facility]2016-07-28 10:43:00 Test Item Value Reference Range Interpretation Comments B/C Ratio (test code = B/C Ratio) 23 6-25 [facility] HospitalSvsogkvTJQVBIIUVT0548-56-16 10:43:00 Test Item Value Reference Range Interpretation Comments RBC (test code = RBC) 4.18 4.20-5.40 [facility] HospitalNzxnkefRSIBVTJOCT9965-00-01 10:43:00 Test Item Value Reference Range Interpretation Comments WBC (test code = WBC) 6.7 3.7-10.4 [place] 406556-07-28 10:43:00 Test Item Value Reference Range Interpretation Comments MPV (test code = MPV) 9.3 7.4-10.4 [facility] HospitalWhrolaiBKHOOXEXWY9858-72-55 10:43:00 Test Item Value Reference Range Interpretation Comments Platelet (test code = Platelet) 159 133-450 [facility] HospitalWoglttwMNRJAFOKKH9942-97-67 10:43:00 Test Item Value Reference Range Interpretation Comments RDW (test code = RDW) 12.8 11.5-14.5 [facility] HospitalYdguusbWDSKTAEJTI2354-07-49 10:43:00 Test Item Value Reference Range Interpretation Comments MCH (test code = MCH) 30.7 pg 27.0-31.0 [facility] HospitalFndiawwRRLXIHJUYW5261-84-90 10:43:00 Test Item Value Reference Range Interpretation Comments MCV (test code = MCV) 93.8 80.0-98.0 [facility] HospitalGdxflfoTVHGGNKQIL8429-36-89 10:43:00 Test Item Value Reference Range Interpretation Comments Hct (test code = Hct) 39.2 36.0-48.0 [facility] HospitalXdsnccoEPXMISGRDV1158-74-15 10:43:00 Test Item Value Reference Range Interpretation Comments Hgb (test code = Hgb) 12.8 12.0-16.0 [facility] HospitalZuwjlyzCPUNXMKLYT0017-08-30 10:43:00 Test Item Value Reference Range Interpretation Comments MCHC (test code = MCHC) 32.8 32.0-36.0 [facility] HospitalWwqriyhWAHTINOYFW7857-17-41 10:43:00 Test Item Value Reference Range Interpretation Comments Lymphocytes (test code = Lymphocytes) 21.4 20.0-40.0 [facility] HospitalQcqmuztNHIIKOWULA7844-89-28 10:43:00 Test Item Value Reference Range Interpretation Comments Segs (test code = Segs) 64.1 45.0-75.0 [facility] HospitalJupzupgCCBWFMMVCK7920-99-10 10:43:00 Test Item Value Reference Range Interpretation Comments Eosinophils (test code = 3.1 See_Comment [A utomated message] The Eosinophils) system which ge nerated this result tra nsmitted reference range : <=4.0. The reference r leatha was not used to int erpret this result as normal/abnormal . [facility] HospitalTplwrfeKHSLTAYOHI7516-52-60 10:43:00 Test Item Value Reference Range Interpretation Comments Monocytes (test code = Monocytes) 10.9 2.0-12.0 [facility] HospitalPppotdlWAQOODOZCM7448-10-85 10:43:00 Test Item Value Reference Range Interpretation Comments Basophils (test code = 0.5 See_Comment [Aut omated message] The Basophils) system which ge nerated this result tra nsmitted reference range : <=1.0. The reference r leatha was not used to int erpret this result as normal/abnormal . [facility] HospitalWjmrurdJWFWMUHIYV0325-72-62 10:43:00 Test Item Value Reference Range Interpretation Comments Basophils # (test code 0.0 See_Comment [Aut omated message] The = Basophils #) system which generated this result tra nsmitted reference range : <=0.2. The reference r leatha was not used to int erpret this result as normal/abnormal . [facility] HospitalNnqnzzpLUKORNEADW3392-00-75 10:43:00 Test Item Value Reference Range Interpretation Comments Eosinophils # (test code 0.2 See_Comment [A utomated message] The = Eosinophils #) system whic h generated this result tra nsmitted reference range : <=0.5. The reference r leatha was not used to int erpret this result as normal/abnormal . [facility] HospitalXdittjuWNOVEQCKRT7308-54-53 10:43:00 Test Item Value Reference Range Interpretation Comments Monocytes # (test code 0.7 See_Comment [Aut omated message] The = Monocytes #) system which generated this result tra nsmitted reference range : <=0.8. The reference r leatha was not used to int erpret this result as normal/abnormal . [facility] HospitalJpgnsusPVTOPVFNBH8761-48-27 10:43:00 Test Item Value Reference Range Interpretation Comments Lymphocytes # (test code = Lymphocytes 1.4 1.0-5.5 #) [facility] HospitalFadengzXZHPBGUGZF9056-65-68 10:43:00 Test Item Value Reference Range Interpretation Comments Segs-Bands # (test code = Segs-Bands #) 4.3 1.5-8.1 [facility]2016-07-28 10:43:00 Test Item Value Reference Range Interpretation Comments Total Protein (test code = Total 4.9 6.4-8.4 Protein) [facility]2016-07-28 10:43:00 Test Item Value Reference Range Interpretation Comments Alk Phos (test code = Alk Phos) 60 39-136 [facility]2016-07-28 10:43:00 Test Item Value Reference Range Interpretation Comments Bili Total (test code = Bili Total) 0.4 0.2-1.3 [facility]2016-07-28 10:43:00 Test Item Value Reference Range Interpretation Comments ALT (test code = ALT) 22 See_Comment [Auto mated message] The system which ge nerated this result transmit juan reference range : <=65. The reference range was not used to interpr et this result as lashonda l/abnormal. [facility]2016-07-28 10:43:00 Test Item Value Reference Range Interpretation Comments AST (test code = AST) 12 See_Comment [Auto mated message] The system which ge nerated this result transmit juan reference range : <=37. The reference range was not used to interpr et this result as lashonda l/abnormal. [facility]2016-07-28 10:43:00 Test Item Value Reference Range Interpretation Comments Albumin Lvl (test code = Albumin Lvl) 2.7 3.5-5.0 [facility]2016-07-28 10:43:00 Test Item Value Reference Range Interpretation Comments Globulin (test code = Globulin) 2.2 2.0-4.0 [facility]2016-07-28 10:43:00 Test Item Value Reference Range Interpretation Comments A/G Ratio (test code = A/G Ratio) 1.2 0.7-1.6 [facility]2016-07-28 10:43:00 Test Item Value Reference Range Interpretation Comments B/C Ratio (test code = B/C Ratio) 23 6-25 [facility] HospitalKsjdpjlKCTNKAUXPX2369-20-80 10:43:00 Test Item Value Reference Range Interpretation Comments RBC (test code = RBC) 4.18 4.20-5.40 [facility] HospitalUefuiyfSJQBKYQHRQ9235-76-93 10:43:00 Test Item Value Reference Range Interpretation Comments WBC (test code = WBC) 6.7 3.7-10.4 [facility] HospitalUaoxqkxCVNHUDWEVS0747-09-19 10:43:00 Test Item Value Reference Range Interpretation Comments MPV (test code = MPV) 9.3 7.4-10.4 [facility] HospitalNqrpyqaVAUHNNGGNH1621-01-65 10:43:00 Test Item Value Reference Range Interpretation Comments Platelet (test code = Platelet) 159 133-450 [facility] HospitalPiqqophXZIEKMWMTI1322-89-12 10:43:00 Test Item Value Reference Range Interpretation Comments RDW (test code = RDW) 12.8 11.5-14.5 [facility] HospitalPocwcqdXROCSASACP2522-54-26 10:43:00 Test Item Value Reference Range Interpretation Comments MCH (test code = MCH) 30.7 pg 27.0-31.0 [facility] HospitalZgecltqNRAEWSTBHJ3713-75-03 10:43:00 Test Item Value Reference Range Interpretation Comments MCV (test code = MCV) 93.8 80.0-98.0 [facility] HospitalTjwwpfoXBCEEKGENM5591-64-24 10:43:00 Test Item Value Reference Range Interpretation Comments Hct (test code = Hct) 39.2 36.0-48.0 [facility] HospitalRmaiisgSYDWBUQCQY2417-16-14 10:43:00 Test Item Value Reference Range Interpretation Comments Hgb (test code = Hgb) 12.8 12.0-16.0 [facility] HospitalKnynusvDLZBXVRABY5421-71-85 10:43:00 Test Item Value Reference Range Interpretation Comments MCHC (test code = MCHC) 32.8 32.0-36.0 [facility] HospitalDmxqvotUMFPOGFLKU2089-58-81 10:43:00 Test Item Value Reference Range Interpretation Comments Lymphocytes (test code = Lymphocytes) 21.4 20.0-40.0 [facility] HospitalZmnmofpLDOLHILJBG4568-16-51 10:43:00 Test Item Value Reference Range Interpretation Comments Segs (test code = Segs) 64.1 45.0-75.0 [facility] HospitalTooxakkYWQALMGULW5685-74-23 10:43:00 Test Item Value Reference Range Interpretation Comments Eosinophils (test code = 3.1 See_Comment [A utomated message] The Eosinophils) system which ge nerated this result tra nsmitted reference range : <=4.0. The reference r leatha was not used to int erpret this result as normal/abnormal . [facility] [facility]NLG1390-41-58 10:43:00 Test Item Value Reference Range Interpretation Comments Monocytes (test code = Monocytes) 10.9 2.0-12.0 [facility]SenzjitFXZVUGIWOM1362-40-55 10:43:00 Test Item Value Reference Range Interpretation Comments Basophils (test code = 0.5 See_Comment [Aut omated message] The Basophils) system which ge nerated this result tra nsmitted reference range : <=1.0. The reference r leatha was not used to int erpret this result as normal/abnormal . [facility] HospitalUnuurnvVTOQAVIQUL0486-36-40 10:43:00 Test Item Value Reference Range Interpretation Comments Basophils # (test code 0.0 See_Comment [Aut omated message] The = Basophils #) system which generated this result tra nsmitted reference range : <=0.2. The reference r leatha was not used to int erpret this result as normal/abnormal . [facility] HospitalZipmlqpIDTXCYNZCF2902-39-04 10:43:00 Test Item Value Reference Range Interpretation Comments Eosinophils # (test code 0.2 See_Comment [A utomated message] The = Eosinophils #) system whic h generated this result tra nsmitted reference range : <=0.5. The reference r leatha was not used to int erpret this result as normal/abnormal . [facility] HospitalIwpqwffWOUIOMKPEY9558-88-76 10:43:00 Test Item Value Reference Range Interpretation Comments Monocytes # (test code 0.7 See_Comment [Aut omated message] The = Monocytes #) system which generated this result tra nsmitted reference range : <=0.8. The reference r leatha was not used to int erpret this result as normal/abnormal . [facility] HospitalIimzykvOJHBZZBSCA1086-33-94 10:43:00 Test Item Value Reference Range Interpretation Comments Lymphocytes # (test code = Lymphocytes 1.4 1.0-5.5 #) [facility] HospitalWizgorhXJUMPDHVOH5915-18-19 10:43:00 Test Item Value Reference Range Interpretation Comments Segs-Bands # (test code = Segs-Bands #) 4.3 1.5-8.1 [facility]2016-07-28 10:43:00 Test Item Value Reference Range Interpretation Comments Total Protein (test code = Total 4.9 6.4-8.4 Protein) [facility]2016-07-28 10:43:00 Test Item Value Reference Range Interpretation Comments Alk Phos (test code = Alk Phos) 60 39-136 [facility]2016-07-28 10:43:00 Test Item Value Reference Range Interpretation Comments Bili Total (test code = Bili Total) 0.4 0.2-1.3 [facility]2016-07-28 10:43:00 Test Item Value Reference Range Interpretation Comments ALT (test code = ALT) 22 See_Comment [Auto mated message] The system which ge nerated this result transmit juan reference range : <=65. The reference range was not used to interpr et this result as lashonda l/abnormal. [facility]2016-07-28 10:43:00 Test Item Value Reference Range Interpretation Comments AST (test code = AST) 12 See_Comment [Auto mated message] The system which ge nerated this result transmit juan reference range : <=37. The reference range was not used to interpr et this result as lashonda l/abnormal. [facility]2016-07-28 10:43:00 Test Item Value Reference Range Interpretation Comments Albumin Lvl (test code = Albumin Lvl) 2.7 3.5-5.0 [facility]2016-07-28 10:43:00 Test Item Value Reference Range Interpretation Comments Globulin (test code = Globulin) 2.2 2.0-4.0 [facility]2016-07-28 10:43:00 Test Item Value Reference Range Interpretation Comments A/G Ratio (test code = A/G Ratio) 1.2 0.7-1.6 [facility]2016-07-28 10:43:00 Test Item Value Reference Range Interpretation Comments B/C Ratio (test code = B/C Ratio) 23 6-25 [facility] HospitalDbstmdjDIKRLDRGVF2091-00-74 10:43:00 Test Item Value Reference Range Interpretation Comments RBC (test code = RBC) 4.18 4.20-5.40 [facility] HospitalOscweysOVUGGFULUY8905-34-96 10:43:00 Test Item Value Reference Range Interpretation Comments WBC (test code = WBC) 6.7 3.7-10.4 [facility] HospitalSltxymjKUYCWZYNJI1527-45-10 10:43:00 Test Item Value Reference Range Interpretation Comments MPV (test code = MPV) 9.3 7.4-10.4 [facility] HospitalVavwckgSHKCFJVZAY3330-94-22 10:43:00 Test Item Value Reference Range Interpretation Comments Platelet (test code = Platelet) 159 133-450 [facility] HospitalGlnaaqmAAFQSKGQRZ6898-35-93 10:43:00 Test Item Value Reference Range Interpretation Comments RDW (test code = RDW) 12.8 11.5-14.5 [facility] HospitalPsyfdrmXWKJTESUTJ0524-42-76 10:43:00 Test Item Value Reference Range Interpretation Comments MCH (test code = MCH) 30.7 pg 27.0-31.0 [facility] HospitalUwdxiowLGAFDLUYAW1466-28-43 10:43:00 Test Item Value Reference Range Interpretation Comments MCV (test code = MCV) 93.8 80.0-98.0 [facility] HospitalNmjhhujZTEEDZQWSL0634-54-76 10:43:00 Test Item Value Reference Range Interpretation Comments Hct (test code = Hct) 39.2 36.0-48.0 [facility] HospitalIimkyvyZLVBTUYBFA9707-91-73 10:43:00 Test Item Value Reference Range Interpretation Comments Hgb (test code = Hgb) 12.8 12.0-16.0 [facility] HospitalCfevqjgPQBJSVCZKU8876-78-41 10:43:00 Test Item Value Reference Range Interpretation Comments MCHC (test code = MCHC) 32.8 32.0-36.0 [facility] HospitalEkgkrgdIYQNROAIAL4543-44-13 10:43:00 Test Item Value Reference Range Interpretation Comments Lymphocytes (test code = Lymphocytes) 21.4 20.0-40.0 [facility] HospitalOvlhkvoPYXKALAZKQ7457-75-15 10:43:00 Test Item Value Reference Range Interpretation Comments Segs (test code = Segs) 64.1 45.0-75.0 [facility] HospitalQzudejgVPNJCTIXYM3110-49-22 10:43:00 Test Item Value Reference Range Interpretation Comments Eosinophils (test code = 3.1 See_Comment [A utomated message] The Eosinophils) system which ge nerated this result tra nsmitted reference range : <=4.0. The reference r leatha was not used to int erpret this result as normal/abnormal . [facility] HospitalUsnduqqTTVCPSUTKY1798-39-79 10:43:00 Test Item Value Reference Range Interpretation Comments Monocytes (test code = Monocytes) 10.9 2.0-12.0 [facility] HospitalWhrvhsvTWFFWYXQAO9903-17-37 10:43:00 Test Item Value Reference Range Interpretation Comments Basophils (test code = 0.5 See_Comment [Aut omated message] The Basophils) system which ge nerated this result tra nsmitted reference range : <=1.0. The reference r leatha was not used to int erpret this result as normal/abnormal . [facility] HospitalChrdbifWRSDRCRNHR1338-50-26 10:43:00 Test Item Value Reference Range Interpretation Comments Basophils # (test code 0.0 See_Comment [Aut omated message] The = Basophils #) system which generated this result tra nsmitted reference range : <=0.2. The reference r leatha was not used to int erpret this result as normal/abnormal . [facility] HospitalRftcsorTQILXOFQNH0907-52-66 10:43:00 Test Item Value Reference Range Interpretation Comments Eosinophils # (test code 0.2 See_Comment [A utomated message] The = Eosinophils #) system whic h generated this result tra nsmitted reference range : <=0.5. The reference r leatha was not used to int erpret this result as normal/abnormal . [facility] HospitalLbxmdngXOPSHHOTLT2101-82-13 10:43:00 Test Item Value Reference Range Interpretation Comments Monocytes # (test code 0.7 See_Comment [Aut omated message] The = Monocytes #) system which generated this result tra nsmitted reference range : <=0.8. The reference r leatha was not used to int erpret this result as normal/abnormal . [facility] HospitalKvhewybNALNWINJMJ4195-44-16 10:43:00 Test Item Value Reference Range Interpretation Comments Lymphocytes # (test code = Lymphocytes 1.4 1.0-5.5 #) [facility] HospitalAwmlqlxTJHJZTARPG8302-23-85 10:43:00 Test Item Value Reference Range Interpretation Comments Segs-Bands # (test code = Segs-Bands #) 4.3 1.5-8.1 [facility]2016-07-28 10:43:00 Test Item Value Reference Range Interpretation Comments Total Protein (test code = Total 4.9 6.4-8.4 Protein) [facility]2016-07-28 10:43:00 Test Item Value Reference Range Interpretation Comments Alk Phos (test code = Alk Phos) 60 39-136 [facility]2016-07-28 10:43:00 Test Item Value Reference Range Interpretation Comments Bili Total (test code = Bili Total) 0.4 0.2-1.3 [facility]2016-07-28 10:43:00 Test Item Value Reference Range Interpretation Comments ALT (test code = ALT) 22 See_Comment [Auto mated message] The system which ge nerated this result transmit juan reference range : <=65. The reference range was not used to interpr et this result as lashonda l/abnormal. [facility]2016-07-28 10:43:00 Test Item Value Reference Range Interpretation Comments AST (test code = AST) 12 See_Comment [Auto mated message] The system which ge nerated this result transmit juan reference range : <=37. The reference range was not used to interpr et this result as lashonda l/abnormal. [facility]2016-07-28 10:43:00 Test Item Value Reference Range Interpretation Comments Albumin Lvl (test code = Albumin Lvl) 2.7 3.5-5.0 [facility]2016-07-28 10:43:00 Test Item Value Reference Range Interpretation Comments Globulin (test code = Globulin) 2.2 2.0-4.0 [facility]2016-07-28 10:43:00 Test Item Value Reference Range Interpretation Comments A/G Ratio (test code = A/G Ratio) 1.2 0.7-1.6 [facility]2016-07-28 10:43:00 Test Item Value Reference Range Interpretation Comments B/C Ratio (test code = B/C Ratio) 23 6-25 [facility] HospitalBgelbrlQULKFHAIEU5811-64-41 10:43:00 Test Item Value Reference Range Interpretation Comments RBC (test code = RBC) 4.18 4.20-5.40 [facility] HospitalNvzdmypWCMTYDVXCK3955-67-02 10:43:00 Test Item Value Reference Range Interpretation Comments WBC (test code = WBC) 6.7 3.7-10.4 [facility] HospitalIwkjjqcWPWQRECQEM1979-23-25 10:43:00 Test Item Value Reference Range Interpretation Comments MPV (test code = MPV) 9.3 7.4-10.4 [facility] HospitalRqzmjgjHOUXKVVAOV5574-93-83 10:43:00 Test Item Value Reference Range Interpretation Comments Platelet (test code = Platelet) 159 133-450 [facility] HospitalMlpfgwnMHTTRGCBSG5289-48-21 10:43:00 Test Item Value Reference Range Interpretation Comments RDW (test code = RDW) 12.8 11.5-14.5 [facility] HospitalCsmywanXSJXREMVSL8013-63-34 10:43:00 Test Item Value Reference Range Interpretation Comments MCH (test code = MCH) 30.7 pg 27.0-31.0 [facility] HospitalJlaxoltCOIYUDRSMC8769-17-54 10:43:00 Test Item Value Reference Range Interpretation Comments MCV (test code = MCV) 93.8 80.0-98.0 [facility] HospitalBpvalcbXFAEZLCDCV0675-85-12 10:43:00 Test Item Value Reference Range Interpretation Comments Hct (test code = Hct) 39.2 36.0-48.0 [facility] HospitalWkktvskGPHIVUBZNX5119-10-52 10:43:00 Test Item Value Reference Range Interpretation Comments Hgb (test code = Hgb) 12.8 12.0-16.0 [facility] HospitalEzarfjvVBFEXHPCPH7459-53-21 10:43:00 Test Item Value Reference Range Interpretation Comments MCHC (test code = MCHC) 32.8 32.0-36.0 [facility] HospitalLgllfdaTOGDUORBMV4539-03-16 10:43:00 Test Item Value Reference Range Interpretation Comments Lymphocytes (test code = Lymphocytes) 21.4 20.0-40.0 [facility] HospitalVftwdbpVYCHCKEPZN0442-10-29 10:43:00 Test Item Value Reference Range Interpretation Comments Segs (test code = Segs) 64.1 45.0-75.0 [facility] HospitalDnhmofkTSMMBBUJYQ2774-16-31 10:43:00 Test Item Value Reference Range Interpretation Comments Eosinophils (test code = 3.1 See_Comment [A utomated message] The Eosinophils) system which ge nerated this result tra nsmitted reference range : <=4.0. The reference r leatha was not used to int erpret this result as normal/abnormal . [facility] HospitalXewmjajNBJGZPHWVB8400-91-78 10:43:00 Test Item Value Reference Range Interpretation Comments Monocytes (test code = Monocytes) 10.9 2.0-12.0 [facility] HospitalIeggcyxJBGIMMLXLI9156-63-29 10:43:00 Test Item Value Reference Range Interpretation Comments Basophils (test code = 0.5 See_Comment [Aut omated message] The Basophils) system which ge nerated this result tra nsmitted reference range : <=1.0. The reference r leatha was not used to int erpret this result as normal/abnormal . [facility] HospitalRkodahjUJKZOCPFNQ6963-58-82 10:43:00 Test Item Value Reference Range Interpretation Comments Basophils # (test code 0.0 See_Comment [Aut omated message] The = Basophils #) system which generated this result tra nsmitted reference range : <=0.2. The reference r leatha was not used to int erpret this result as normal/abnormal . [facility] HospitalVyrmikwGCOTFJXYYE8479-59-76 10:43:00 Test Item Value Reference Range Interpretation Comments Eosinophils # (test code 0.2 See_Comment [A utomated message] The = Eosinophils #) system whic h generated this result tra nsmitted reference range : <=0.5. The reference r leatha was not used to int erpret this result as normal/abnormal . [facility] HospitalOfhbrhpTDBPXEDDDN9494-82-22 10:43:00 Test Item Value Reference Range Interpretation Comments Monocytes # (test code 0.7 See_Comment [Aut omated message] The = Monocytes #) system which generated this result tra nsmitted reference range : <=0.8. The reference r leatha was not used to int erpret this result as normal/abnormal . [facility] HospitalIajjinuVEFVFGHEJR6422-52-74 10:43:00 Test Item Value Reference Range Interpretation Comments Lymphocytes # (test code = Lymphocytes 1.4 1.0-5.5 #) [facility] HospitalNgozwnhNDTBIJZAOG8343-11-92 10:43:00 Test Item Value Reference Range Interpretation Comments Segs-Bands # (test code = Segs-Bands #) 4.3 1.5-8.1 [facility]2016-07-28 10:43:00 Test Item Value Reference Range Interpretation Comments Total Protein (test code = Total 4.9 6.4-8.4 Protein) [facility]2016-07-28 10:43:00 Test Item Value Reference Range Interpretation Comments Alk Phos (test code = Alk Phos) 60 39-136 [facility]2016-07-28 10:43:00 Test Item Value Reference Range Interpretation Comments Bili Total (test code = Bili Total) 0.4 0.2-1.3 [facility]2016-07-28 10:43:00 Test Item Value Reference Range Interpretation Comments ALT (test code = ALT) 22 See_Comment [Auto mated message] The system which ge nerated this result transmit juan reference range : <=65. The reference range was not used to interpr et this result as lashonda l/abnormal. [facility]2016-07-28 10:43:00 Test Item Value Reference Range Interpretation Comments AST (test code = AST) 12 See_Comment [Auto mated message] The system which ge nerated this result transmit juan reference range : <=37. The reference range was not used to interpr et this result as lashonda l/abnormal. [facility]2016-07-28 10:43:00 Test Item Value Reference Range Interpretation Comments Albumin Lvl (test code = Albumin Lvl) 2.7 3.5-5.0 [facility]2016-07-28 10:43:00 Test Item Value Reference Range Interpretation Comments Globulin (test code = Globulin) 2.2 2.0-4.0 [facility]2016-07-28 10:43:00 Test Item Value Reference Range Interpretation Comments A/G Ratio (test code = A/G Ratio) 1.2 0.7-1.6 [facility]2016-07-28 10:43:00 Test Item Value Reference Range Interpretation Comments B/C Ratio (test code = B/C Ratio) 23 6-25 [facility] HospitalPutoxutOBAMBZITKX1405-09-51 10:43:00 Test Item Value Reference Range Interpretation Comments RBC (test code = RBC) 4.18 4.20-5.40 [facility] HospitalNklpkdpZXDQIYKCXO3571-87-67 10:43:00 Test Item Value Reference Range Interpretation Comments WBC (test code = WBC) 6.7 3.7-10.4 [facility] HospitalIkjykoqFDYBJKYZSD2743-83-31 10:43:00 Test Item Value Reference Range Interpretation Comments MPV (test code = MPV) 9.3 7.4-10.4 [facility] HospitalCavxeqvFDQBRAAFSH7773-72-52 10:43:00 Test Item Value Reference Range Interpretation Comments Platelet (test code = Platelet) 159 133-450 [facility] HospitalAohynjzJZSHTFJLZA4979-62-78 10:43:00 Test Item Value Reference Range Interpretation Comments RDW (test code = RDW) 12.8 11.5-14.5 [facility] HospitalJuddhzcJSAXOYIHDD5767-53-47 10:43:00 Test Item Value Reference Range Interpretation Comments MCH (test code = MCH) 30.7 pg 27.0-31.0 [facility] HospitalEsxvbroHIORBCYIJE5518-09-45 10:43:00 Test Item Value Reference Range Interpretation Comments MCV (test code = MCV) 93.8 80.0-98.0 [facility] HospitalYdpralfTQJRXIQKST8495-31-88 10:43:00 Test Item Value Reference Range Interpretation Comments Hct (test code = Hct) 39.2 36.0-48.0 [facility] HospitalMclkoesPKWSXBQUYO9345-46-51 10:43:00 Test Item Value Reference Range Interpretation Comments Hgb (test code = Hgb) 12.8 12.0-16.0 [facility] HospitalZjakprsOJZNKQRJOJ5809-82-79 10:43:00 Test Item Value Reference Range Interpretation Comments MCHC (test code = MCHC) 32.8 32.0-36.0 [facility] HospitalAqtbnfwDAPCGVMXDX3968-81-80 10:43:00 Test Item Value Reference Range Interpretation Comments Lymphocytes (test code = Lymphocytes) 21.4 20.0-40.0 [facility] HospitalPqzdbykMIXBSPHFRB8635-47-22 10:43:00 Test Item Value Reference Range Interpretation Comments Segs (test code = Segs) 64.1 45.0-75.0 [facility] HospitalQtfjtapYQILCOGPJE6602-60-06 10:43:00 Test Item Value Reference Range Interpretation Comments Eosinophils (test code = 3.1 See_Comment [A utomated message] The Eosinophils) system which ge nerated this result tra nsmitted reference range : <=4.0. The reference r leatha was not used to int erpret this result as normal/abnormal . [facility] HospitalWgmufoyFLMJNUNQHT2718-43-59 10:43:00 Test Item Value Reference Range Interpretation Comments Monocytes (test code = Monocytes) 10.9 2.0-12.0 [facility] HospitalIduonrlCGDKKCJXMY6292-15-43 10:43:00 Test Item Value Reference Range Interpretation Comments Basophils (test code = 0.5 See_Comment [Aut omated message] The Basophils) system which ge nerated this result tra nsmitted reference range : <=1.0. The reference r leatha was not used to int erpret this result as normal/abnormal . [facility] HospitalIfhstjdFOUGXSEBGP5699-28-49 10:43:00 Test Item Value Reference Range Interpretation Comments Basophils # (test code 0.0 See_Comment [Aut omated message] The = Basophils #) system which generated this result tra nsmitted reference range : <=0.2. The reference r leatha was not used to int erpret this result as normal/abnormal . [facility] HospitalPtlhwvwJBXHWVIEFK1639-34-06 10:43:00 Test Item Value Reference Range Interpretation Comments Eosinophils # (test code 0.2 See_Comment [A utomated message] The = Eosinophils #) system whic h generated this result tra nsmitted reference range : <=0.5. The reference r leatha was not used to int erpret this result as normal/abnormal . [facility] HospitalAzqnlnkIWZRTVCTKE1405-61-62 10:43:00 Test Item Value Reference Range Interpretation Comments Monocytes # (test code 0.7 See_Comment [Aut omated message] The = Monocytes #) system which generated this result tra nsmitted reference range : <=0.8. The reference r leatha was not used to int erpret this result as normal/abnormal . [facility] HospitalRogzhfmVPPHLHGVNW0262-99-13 10:43:00 Test Item Value Reference Range Interpretation Comments Lymphocytes # (test code = Lymphocytes 1.4 1.0-5.5 #) [facility] HospitalUykjlhmYITEENZDJT8447-08-57 10:43:00 Test Item Value Reference Range Interpretation Comments Segs-Bands # (test code = Segs-Bands #) 4.3 1.5-8.1 [facility]2016-07-28 10:43:00 Test Item Value Reference Range Interpretation Comments Total Protein (test code = Total 4.9 6.4-8.4 Protein) [facility]2016-07-28 10:43:00 Test Item Value Reference Range Interpretation Comments Alk Phos (test code = Alk Phos) 60 39-136 [facility]2016-07-28 10:43:00 Test Item Value Reference Range Interpretation Comments Bili Total (test code = Bili Total) 0.4 0.2-1.3 [facility]2016-07-28 10:43:00 Test Item Value Reference Range Interpretation Comments ALT (test code = ALT) 22 See_Comment [Auto mated message] The system which ge nerated this result transmit juan reference range : <=65. The reference range was not used to interpr et this result as lashonda l/abnormal. [facility]2016-07-28 10:43:00 Test Item Value Reference Range Interpretation Comments AST (test code = AST) 12 See_Comment [Auto mated message] The system which ge nerated this result transmit juan reference range : <=37. The reference range was not used to interpr et this result as lashonda l/abnormal. [facility]2016-07-28 10:43:00 Test Item Value Reference Range Interpretation Comments Albumin Lvl (test code = Albumin Lvl) 2.7 3.5-5.0 [facility]2016-07-28 10:43:00 Test Item Value Reference Range Interpretation Comments Globulin (test code = Globulin) 2.2 2.0-4.0 [facility]2016-07-28 10:43:00 Test Item Value Reference Range Interpretation Comments A/G Ratio (test code = A/G Ratio) 1.2 0.7-1.6 [facility]2016-07-28 10:43:00 Test Item Value Reference Range Interpretation Comments B/C Ratio (test code = B/C Ratio) 23 6-25 [facility] HospitalYmmmowgZKFRRFFKFW5073-36-31 10:43:00 Test Item Value Reference Range Interpretation Comments RBC (test code = RBC) 4.18 4.20-5.40 [facility] HospitalPygpjuoSEBBJMGULJ6106-28-98 10:43:00 Test Item Value Reference Range Interpretation Comments WBC (test code = WBC) 6.7 3.7-10.4 [facility] HospitalRnidsztJIKQBFTMJW2955-49-34 10:43:00 Test Item Value Reference Range Interpretation Comments MPV (test code = MPV) 9.3 7.4-10.4 [facility] HospitalNzadpysBTYZQDNNCZ6050-67-86 10:43:00 Test Item Value Reference Range Interpretation Comments Platelet (test code = Platelet) 159 133-450 [facility] HospitalPpgtfbdGMGWTAJAUF4869-55-63 10:43:00 Test Item Value Reference Range Interpretation Comments RDW (test code = RDW) 12.8 11.5-14.5 [facility] HospitalXsfllohXWVXNIJOJG9246-59-90 10:43:00 Test Item Value Reference Range Interpretation Comments MCH (test code = MCH) 30.7 pg 27.0-31.0 [place] 406556-07-28 10:43:00 Test Item Value Reference Range Interpretation Comments MCV (test code = MCV) 93.8 80.0-98.0 [facility] HospitalVexnnydTOYQHIBVVN0022-35-11 10:43:00 Test Item Value Reference Range Interpretation Comments Hct (test code = Hct) 39.2 36.0-48.0 [facility] HospitalAxuxvhlEGESSMXYTW8720-86-20 10:43:00 Test Item Value Reference Range Interpretation Comments Hgb (test code = Hgb) 12.8 12.0-16.0 [facility] HospitalMyfmmcgVNHCXEIOBR8679-80-84 10:43:00 Test Item Value Reference Range Interpretation Comments MCHC (test code = MCHC) 32.8 32.0-36.0 [facility] HospitalMsajxuoAQYGBJIGVH8924-89-17 10:43:00 Test Item Value Reference Range Interpretation Comments Lymphocytes (test code = Lymphocytes) 21.4 20.0-40.0 [facility] HospitalJphglewJVXMOZNUXH0766-42-80 10:43:00 Test Item Value Reference Range Interpretation Comments Segs (test code = Segs) 64.1 45.0-75.0 [facility] HospitalQjplgagBWSNXYOXQZ1475-86-98 10:43:00 Test Item Value Reference Range Interpretation Comments Eosinophils (test code = 3.1 See_Comment [A utomated message] The Eosinophils) system which ge nerated this result tra nsmitted reference range : <=4.0. The reference r leatha was not used to int erpret this result as normal/abnormal . [facility] HospitalCcyjughKZOGXPJZUO8552-59-32 10:43:00 Test Item Value Reference Range Interpretation Comments Monocytes (test code = Monocytes) 10.9 2.0-12.0 [facility] [facility]fLVOZIUIDIU9289-71-55 10:43:00 Test Item Value Reference Range Interpretation Comments Basophils (test code = 0.5 See_Comment [Aut omated message] The Basophils) system which ge nerated this result tra nsmitted reference range : <=1.0. The reference r leatha was not used to int erpret this result as normal/abnormal . [facility]QxwmpbiQGVBIATVUB[facility] 10:43:00 Test Item Value Reference Range Interpretation Comments Basophils # (test code 0.0 See_Comment [Aut omated message] The = Basophils #) system which generated this result tra nsmitted reference range : <=0.2. The reference r leatha was not used to int erpret this result as normal/abnormal . [facility] HospitalSqgugarZFZWNARVPG3406-52-88 10:43:00 Test Item Value Reference Range Interpretation Comments Eosinophils # (test code 0.2 See_Comment [A utomated message] The = Eosinophils #) system whic h generated this result tra nsmitted reference range : <=0.5. The reference r leatha was not used to int erpret this result as normal/abnormal . [facility] HospitalTgpwaxkCYHDTCSEFE6400-38-42 10:43:00 Test Item Value Reference Range Interpretation Comments Monocytes # (test code 0.7 See_Comment [Aut omated message] The = Monocytes #) system which generated this result tra nsmitted reference range : <=0.8. The reference r leatha was not used to int erpret this result as normal/abnormal . [facility] HospitalIxyifprWRNOGSEQRR8024-62-99 10:43:00 Test Item Value Reference Range Interpretation Comments Lymphocytes # (test code = Lymphocytes 1.4 1.0-5.5 #) [facility] HospitalMcamjclICLJWMPLGU8057-43-34 10:43:00 Test Item Value Reference Range Interpretation Comments Segs-Bands # (test code = Segs-Bands #) 4.3 1.5-8.1 [facility]2016-07-26 23:48:00 Test Item Value Reference Range Interpretation Comments Magnesium Lvl (test code = Magnesium 1.8 1.8-2.4 Lvl) [facility]2016-07-26 23:48:00 Test Item Value Reference Range Interpretation Comments Phosphorus (test code = Phosphorus) 2.0 2.5-4.5 [facility] HospitalIhgdjlmXVEFQWPEND9774-51-80 23:48:00 Test Item Value Reference Range Interpretation Comments Basophils # (test code 0.0 See_Comment [Aut omated message] The = Basophils #) system which generated this result tra nsmitted reference range : <=0.2. The reference r leatha was not used to int erpret this result as normal/abnormal . [facility] HospitalGcuosihWYPZDBQFHG7448-96-53 23:48:00 Test Item Value Reference Range Interpretation Comments Macrocyte (test code = 1+ *ABN*(01/11/16 Macrocyte) 6:48 PM) [facility] HospitalTmgtxrlVYECOQYQPZ1243-30-57 23:48:00 Test Item Value Reference Range Interpretation Comments INR (test code = INR) 0.99 0.85-1.17 [facility] HospitalLivrypfDEBYYBRWZC0444-67-83 23:48:00 Test Item Value Reference Range Interpretation Comments PTT (test code = PTT) 23.5 s 22.9-35.8 [facility] HospitalImwrobqUYUHXNQTQX8478-97-94 23:48:00 Test Item Value Reference Range Interpretation Comments PT (test code = PT) 13.4 s 12.0-14.7 [facility]2016-07-26 23:48:00 Test Item Value Reference Range Interpretation Comments Magnesium Lvl (test code = Magnesium 1.8 1.8-2.4 Lvl) [facility]2016-07-26 23:48:00 Test Item Value Reference Range Interpretation Comments Phosphorus (test code = Phosphorus) 2.0 2.5-4.5 [facility] HospitalRkjhbupHBVBWDGSUK0135-10-32 23:48:00 Test Item Value Reference Range Interpretation Comments Basophils # (test code 0.0 See_Comment [Aut omated message] The = Basophils #) system which generated this result tra nsmitted reference range : <=0.2. The reference r leatha was not used to int erpret this result as normal/abnormal . [facility] HospitalFvndhtxVAJKAVZKVG6071-04-09 23:48:00 Test Item Value Reference Range Interpretation Comments Macrocyte (test code = 1+ *ABN*(01/11/16 Macrocyte) 6:48 PM) [facility] HospitalDxnfgowRDOCOLMDNQ6882-57-40 23:48:00 Test Item Value Reference Range Interpretation Comments INR (test code = INR) 0.99 0.85-1.17 [facility] HospitalWyhllqmARCWWQWZSQ0574-58-11 23:48:00 Test Item Value Reference Range Interpretation Comments PTT (test code = PTT) 23.5 s 22.9-35.8 [facility] HospitalErlesqrBSLGDNEVBQ5793-69-63 23:48:00 Test Item Value Reference Range Interpretation Comments PT (test code = PT) 13.4 s 12.0-14.7 [facility]2016-07-26 23:48:00 Test Item Value Reference Range Interpretation Comments Magnesium Lvl (test code = Magnesium 1.8 1.8-2.4 Lvl) [place] 315576-07-26 23:48:00 Test Item Value Reference Range Interpretation Comments Phosphorus (test code = Phosphorus) 2.0 2.5-4.5 [facility] HospitalOcgqmgtECQVXTVVDG4897-46-33 23:48:00 Test Item Value Reference Range Interpretation Comments Basophils # (test code 0.0 See_Comment [Aut omated message] The = Basophils #) system which generated this result tra nsmitted reference range : <=0.2. The reference r leatha was not used to int erpret this result as normal/abnormal . [facility] HospitalOmircjwJEVCPSROJP8165-70-28 23:48:00 Test Item Value Reference Range Interpretation Comments Macrocyte (test code = 1+ *ABN*(01/11/16 Macrocyte) 6:48 PM) [facility] HospitalYcktbeyJMDFSYLMIC6966-31-41 23:48:00 Test Item Value Reference Range Interpretation Comments INR (test code = INR) 0.99 0.85-1.17 [place] 406556-07-26 23:48:00 Test Item Value Reference Range Interpretation Comments PTT (test code = PTT) 23.5 s 22.9-35.8 [place] 406556-07-26 23:48:00 Test Item Value Reference Range Interpretation Comments PT (test code = PT) 13.4 s 12.0-14.7 [facility]2016-07-26 23:48:00 Test Item Value Reference Range Interpretation Comments Magnesium Lvl (test code = Magnesium 1.8 1.8-2.4 Lvl) [facility]2016-07-26 23:48:00 Test Item Value Reference Range Interpretation Comments Phosphorus (test code = Phosphorus) 2.0 2.5-4.5 [place] 406556-07-26 23:48:00 Test Item Value Reference Range Interpretation Comments Basophils # (test code 0.0 See_Comment [Aut omated message] The = Basophils #) system which generated this result tra nsmitted reference range : <=0.2. The reference r leatha was not used to int erpret this result as normal/abnormal . [facility] HospitalXqwhnfaMFVAIORSEP9164-35-51 23:48:00 Test Item Value Reference Range Interpretation Comments Macrocyte (test code = 1+ *ABN*(01/11/16 Macrocyte) 6:48 PM) [facility] HospitalRbqjbmnGYEDNDPLFR5266-62-03 23:48:00 Test Item Value Reference Range Interpretation Comments INR (test code = INR) 0.99 0.85-1.17 [facility] HospitalYdxxydvOCPHVHUBPL3455-25-80 23:48:00 Test Item Value Reference Range Interpretation Comments PTT (test code = PTT) 23.5 s 22.9-35.8 [facility] HospitalPocrxsyGXORUEFNIH0896-66-60 23:48:00 Test Item Value Reference Range Interpretation Comments PT (test code = PT) 13.4 s 12.0-14.7 [facility]2016-07-26 23:48:00 Test Item Value Reference Range Interpretation Comments Magnesium Lvl (test code = Magnesium 1.8 1.8-2.4 Lvl) [facility]2016-07-26 23:48:00 Test Item Value Reference Range Interpretation Comments Phosphorus (test code = Phosphorus) 2.0 2.5-4.5 [facility] HospitalJcwajnoFSDBQNCEWQ5130-00-23 23:48:00 Test Item Value Reference Range Interpretation Comments Basophils # (test code 0.0 See_Comment [Aut omated message] The = Basophils #) system which generated this result tra nsmitted reference range : <=0.2. The reference r leatha was not used to int erpret this result as normal/abnormal . [facility] HospitalZyxciktNWDXJTATMU0924-87-79 23:48:00 Test Item Value Reference Range Interpretation Comments Macrocyte (test code = 1+ *ABN*(01/11/16 Macrocyte) 6:48 PM) [facility] HospitalHzswcowBNBACNEPLD8754-38-20 23:48:00 Test Item Value Reference Range Interpretation Comments INR (test code = INR) 0.99 0.85-1.17 [facility] HospitalZmbnocoQASEIJXTOJ0940-01-76 23:48:00 Test Item Value Reference Range Interpretation Comments PTT (test code = PTT) 23.5 s 22.9-35.8 [facility] HospitalDopeqvcZRGOPQWOWT4737-54-74 23:48:00 Test Item Value Reference Range Interpretation Comments PT (test code = PT) 13.4 s 12.0-14.7 [facility]2016-07-26 23:48:00 Test Item Value Reference Range Interpretation Comments Magnesium Lvl (test code = Magnesium 1.8 1.8-2.4 Lvl) [facility]2016-07-26 23:48:00 Test Item Value Reference Range Interpretation Comments Phosphorus (test code = Phosphorus) 2.0 2.5-4.5 [facility] HospitalFkjsbnbSFWZJMSYZA9971-96-23 23:48:00 Test Item Value Reference Range Interpretation Comments Basophils # (test code 0.0 See_Comment [Aut omated message] The = Basophils #) system which generated this result tra nsmitted reference range : <=0.2. The reference r leatha was not used to int erpret this result as normal/abnormal . [place] 406556-07-26 23:48:00 Test Item Value Reference Range Interpretation Comments Macrocyte (test code = 1+ *ABN*(01/11/16 Macrocyte) 6:48 PM) [place] 406556-07-26 23:48:00 Test Item Value Reference Range Interpretation Comments INR (test code = INR) 0.99 0.85-1.17 [place] 406556-07-26 23:48:00 Test Item Value Reference Range Interpretation Comments PTT (test code = PTT) 23.5 s 22.9-35.8 [place] 406556-07-26 23:48:00 Test Item Value Reference Range Interpretation Comments PT (test code = PT) 13.4 s 12.0-14.7 [facility]2016-07-26 23:48:00 Test Item Value Reference Range Interpretation Comments Magnesium Lvl (test code = Magnesium 1.8 1.8-2.4 Lvl) [facility]2016-07-26 23:48:00 Test Item Value Reference Range Interpretation Comments Phosphorus (test code = Phosphorus) 2.0 2.5-4.5 [place] 406556-07-26 23:48:00 Test Item Value Reference Range Interpretation Comments Basophils # (test code 0.0 See_Comment [Aut omated message] The = Basophils #) system which generated this result tra nsmitted reference range : <=0.2. The reference r leatha was not used to int erpret this result as normal/abnormal . [facility] HospitalBzwamxbTNJGFBCPZO3170-89-52 23:48:00 Test Item Value Reference Range Interpretation Comments Macrocyte (test code = 1+ *ABN*(01/11/16 Macrocyte) 6:48 PM) [facility] HospitalDduepdcATCDNMSAMB6660-35-46 23:48:00 Test Item Value Reference Range Interpretation Comments INR (test code = INR) 0.99 0.85-1.17 [facility] HospitalZuvvpbkDTTJXXTNQV8108-50-07 23:48:00 Test Item Value Reference Range Interpretation Comments PTT (test code = PTT) 23.5 s 22.9-35.8 [facility] HospitalOkwwnynKHEYDWPBEY1371-16-49 23:48:00 Test Item Value Reference Range Interpretation Comments PT (test code = PT) 13.4 s 12.0-14.7 [facility] [id number] 23:48:00 Test Item Value Reference Range Interpretation Comments Magnesium Lvl (test code = Magnesium 1.8 1.8-2.4 Lvl) [facility] VGQMI9976-35-26 23:48:00 Test Item Value Reference Range Interpretation Comments Phosphorus (test code = Phosphorus) 2.0 2.5-4.5 [facility] HospitalObwtlihKDAFQYKSCC5159-52-13 23:48:00 Test Item Value Reference Range Interpretation Comments Basophils # (test code 0.0 See_Comment [Aut omated message] The = Basophils #) system which generated this result tra nsmitted reference range : <=0.2. The reference r leatha was not used to int erpret this result as normal/abnormal . [facility] HospitalKqjapmlNJNJTPOAEJ6669-09-60 23:48:00 Test Item Value Reference Range Interpretation Comments Macrocyte (test code = 1+ *ABN*(01/11/16 Macrocyte) 6:48 PM) [facility] HospitalElbyiegWBQUQEYTWF2231-90-80 23:48:00 Test Item Value Reference Range Interpretation Comments INR (test code = INR) 0.99 0.85-1.17 [facility] HospitalNuvjmfrNOARTMNUEC5148-37-62 23:48:00 Test Item Value Reference Range Interpretation Comments PTT (test code = PTT) 23.5 s 22.9-35.8 [facility] HospitalRxtoggqOYRZAYYXDA9444-33-86 23:48:00 Test Item Value Reference Range Interpretation Comments PT (test code = PT) 13.4 s 12.0-14.7 [facility] GLUCOSE QUVMQFA8325-79-12 12:49:00 Test Item Value Reference Range Interpretation Comments Comment1 (test code = Comment1) Notify RN/MD [facility] GLUCOSE [id number] 12:49:00 Test Item Value Reference Range Interpretation Comments Gluc POC Lifscn (test code = Gluc POC 308 70-99 H Lifscn) [facility] GLUCOSE [id number] 12:49:00 Test Item Value Reference Range Interpretation Comments Comment1 (test code = Comment1) Notify RN/ [facility] GLUCOSE [id number] 12:49:00 Test Item Value Reference Range Interpretation Comments Gluc POC Lifscn (test code = Gluc POC 308 70-99 H Lifscn) [facility] GLUCOSE [id number] 12:49:00 Test Item Value Reference Range Interpretation Comments Comment1 (test code = Comment1) Notify RN/ [facility] GLUCOSE [id number] 12:49:00 Test Item Value Reference Range Interpretation Comments Gluc POC Lifscn (test code = Gluc POC 308 70-99 H Lifscn) [facility] GLUCOSE [id number] 12:49:00 Test Item Value Reference Range Interpretation Comments Comment1 (test code = Comment1) Notify RN/ [facility] GLUCOSE [id number] 12:49:00 Test Item Value Reference Range Interpretation Comments Gluc POC Lifscn (test code = Gluc POC 308 70-99 H Lifscn) [facility] GLUCOSE [id number] 12:49:00 Test Item Value Reference Range Interpretation Comments Comment1 (test code = Comment1) Notify RN/ [facility] GLUCOSE [id number] 12:49:00 Test Item Value Reference Range Interpretation Comments Gluc POC Lifscn (test code = Gluc POC 308 70-99 H Lifscn) [facility] GLUCOSE [id number] 12:49:00 Test Item Value Reference Range Interpretation Comments Comment1 (test code = Comment1) Notify RN/ [facility] GLUCOSE [id number] 12:49:00 Test Item Value Reference Range Interpretation Comments Gluc POC Lifscn (test code = Gluc POC 308 70-99 H Lifscn) [facility] GLUCOSE VDJHTEE1731-08-01 12:49:00 Test Item Value Reference Range Interpretation Comments Comment1 (test code = Comment1) Notify JENNIE/ [facility] GLUCOSE [id number] 12:49:00 Test Item Value Reference Range Interpretation Comments Gluc POC Lifscn (test code = Gluc POC 308 70-99 H Lifscn) [facility] GLUCOSE [id number] 12:49:00 Test Item Value Reference Range Interpretation Comments Comment1 (test code = Comment1) Notify RN/ [facility] GLUCOSE [id number] 12:49:00 Test Item Value Reference Range Interpretation Comments Gluc POC Lifscn (test code = Gluc POC 308 70-99 H Lifscn) [facility] GLUCOSE [id number] 08:39:00 Test Item Value Reference Range Interpretation Comments Comment1 (test code = Comment1) Notify RN/ [facility] GLUCOSE [id number] 08:39:00 Test Item Value Reference Range Interpretation Comments Gluc POC Lifscn (test code = Gluc POC 159 70-99 H Lifscn) [facility] GLUCOSE [id number] 08:39:00 Test Item Value Reference Range Interpretation Comments Comment1 (test code = Comment1) Notify RN/ [facility] GLUCOSE [id number] 08:39:00 Test Item Value Reference Range Interpretation Comments Gluc POC Lifscn (test code = Gluc POC 159 70-99 H Lifscn) [facility] GLUCOSE [id number] 08:39:00 Test Item Value Reference Range Interpretation Comments Comment1 (test code = Comment1) Notify RN/ [facility] GLUCOSE [id number] 08:39:00 Test Item Value Reference Range Interpretation Comments Gluc POC Lifscn (test code = Gluc POC 159 70-99 H Lifscn) [facility] GLUCOSE [id number] 08:39:00 Test Item Value Reference Range Interpretation Comments Comment1 (test code = Comment1) Notify RN/ [facility] GLUCOSE [id number] 08:39:00 Test Item Value Reference Range Interpretation Comments Gluc POC Lifscn (test code = Gluc POC 159 70-99 H Lifscn) [facility] GLUCOSE [id number] 08:39:00 Test Item Value Reference Range Interpretation Comments Comment1 (test code = Comment1) Notify RN/ [facility] GLUCOSE [id number] 08:39:00 Test Item Value Reference Range Interpretation Comments Gluc POC Lifscn (test code = Gluc POC 159 70-99 H Lifscn) [facility] GLUCOSE [id number] 08:39:00 Test Item Value Reference Range Interpretation Comments Comment1 (test code = Comment1) Notify RN/ [facility] GLUCOSE [id number] 08:39:00 Test Item Value Reference Range Interpretation Comments Gluc POC Lifscn (test code = Gluc POC 159 70-99 H Lifscn) [facility] GLUCOSE [id number] 08:39:00 Test Item Value Reference Range Interpretation Comments Comment1 (test code = Comment1) Notify RN/ [facility] GLUCOSE [id number] 08:39:00 Test Item Value Reference Range Interpretation Comments Gluc POC Lifscn (test code = Gluc POC 159 70-99 H Lifscn) [facility] GLUCOSE [id number] 08:39:00 Test Item Value Reference Range Interpretation Comments Comment1 (test code = Comment1) Notify RN/ [facility] GLUCOSE [id number] 08:39:00 Test Item Value Reference Range Interpretation Comments Gluc POC Lifscn (test code = Gluc POC 159 70-99 H Lifscn) [facility] HospitalGfjufreRAQLZZHOF0535-27-50 07:19:00 Test Item Value Reference Range Interpretation Comments AGAP (test code = AGAP) 14.3 10.0-20.0 N [facility] HospitalJpqktcgAGIRDHAYP0620-12-23 07:19:00 Test Item Value Reference Range Interpretation Comments eGFR (test code = eGFR) 75 [facility] HospitalArwbqqhVOBFWRDXF5220-08-85 07:19:00 Test Item Value Reference Range Interpretation Comments Sodium Lvl (test code = Sodium Lvl) 139 135-145 N [facility] HospitalMvcxmdoQHWGKZCUE2337-85-80 07:19:00 Test Item Value Reference Range Interpretation Comments Chloride Lvl (test code = Chloride Lvl) 104 95-109 N [facility] HospitalXguuqckOUCRFFXPF6046-03-80 07:19:00 Test Item Value Reference Range Interpretation Comments CO2 (test code = CO2) 25 24-32 N [facility] HospitalXnfsgoxWBPDRIABJ1801-87-69 07:19:00 Test Item Value Reference Range Interpretation Comments Calcium Lvl (test code = Calcium Lvl) 10.7 8.5-10.5 H [facility] HospitalApdslcwTEPIFTHTR1877-15-44 07:19:00 Test Item Value Reference Range Interpretation Comments Potassium Lvl (test code = Potassium 4.3 3.5-5.1 N Lvl) [facility] HospitalVogibjnQATMXOJIX1958-19-27 07:19:00 Test Item Value Reference Range Interpretation Comments Glucose Lvl (test code = Glucose Lvl) 262 70-99 H [facility] HospitalNqakgveMHCVEWYHA5508-89-83 07:19:00 Test Item Value Reference Range Interpretation Comments Creatinine Lvl (test code = Creatinine 0.8 0.5-1.4 N Lvl) [facility] HospitalZryydfrFYKFEIUPE4273-54-11 07:19:00 Test Item Value Reference Range Interpretation Comments BUN (test code = BUN) 20 7-22 N [facility] HospitalFfxflysKSGTKUHMDO8509-36-37 07:19:00 Test Item Value Reference Range Interpretation Comments Hgb (test code = Hgb) 14.0 12.0-16.0 N [facility] HospitalJlgivuxIXPCRAKGBF2072-79-04 07:19:00 Test Item Value Reference Range Interpretation Comments Hct (test code = Hct) 42.5 36.0-48.0 N [facility] HospitalHwszxhjYUWYEQSWMK6391-68-10 07:19:00 Test Item Value Reference Range Interpretation Comments MCV (test code = MCV) 92.3 81.0-99.0 N [facility] HospitalRhmgymsMDUNMSGRIW1609-36-28 07:19:00 Test Item Value Reference Range Interpretation Comments MCH (test code = MCH) 30.5 pg 27.0-31.0 N [facility] HospitalUnpviuzVMMAPEVVYL4676-89-91 07:19:00 Test Item Value Reference Range Interpretation Comments MCHC (test code = MCHC) 33.0 32.0-36.0 N [facility] HospitalQzcpiquZUSWGPDKBV7168-60-26 07:19:00 Test Item Value Reference Range Interpretation Comments RDW (test code = RDW) 14.6 11.5-14.5 H [facility] HospitalMxfyvrzIPYYFRXVHV2207-02-69 07:19:00 Test Item Value Reference Range Interpretation Comments Platelet (test code = Platelet) 215 133-450 N [facility] HospitalIelhkttDRNZEAAFEH6877-62-88 07:19:00 Test Item Value Reference Range Interpretation Comments MPV (test code = MPV) 10.0 7.4-10.4 N [facility] HospitalEhnntjuSYSMLMGYAY5218-15-04 07:19:00 Test Item Value Reference Range Interpretation Comments RBC (test code = RBC) 4.60 4.20-5.40 N [facility] HospitalQwuwlwtLSJFZKEUOJ0438-30-13 07:19:00 Test Item Value Reference Range Interpretation Comments WBC (test code = WBC) 13.0 3.7-10.4 H [facility] HospitalHggipcvLBARISSXK2888-15-81 07:19:00 Test Item Value Reference Range Interpretation Comments AGAP (test code = AGAP) 14.3 10.0-20.0 N [facility] HospitalBeddknyDJUDTJQJI7808-84-74 07:19:00 Test Item Value Reference Range Interpretation Comments eGFR (test code = eGFR) 75 [facility] HospitalVzlsvorYPZDFJCAO5809-67-36 07:19:00 Test Item Value Reference Range Interpretation Comments Sodium Lvl (test code = Sodium Lvl) 139 135-145 N [facility] HospitalAepctwkEBTBBACRH8355-20-66 07:19:00 Test Item Value Reference Range Interpretation Comments Chloride Lvl (test code = Chloride Lvl) 104 95-109 N [facility] HospitalXadcrdlQLTNADFXF1926-26-33 07:19:00 Test Item Value Reference Range Interpretation Comments CO2 (test code = CO2) 25 24-32 N [facility] HospitalZzucjoaIVDZQHGEK2357-81-06 07:19:00 Test Item Value Reference Range Interpretation Comments Calcium Lvl (test code = Calcium Lvl) 10.7 8.5-10.5 H [facility] HospitalGzahsikYJMBIYWMD8845-91-85 07:19:00 Test Item Value Reference Range Interpretation Comments Potassium Lvl (test code = Potassium 4.3 3.5-5.1 N Lvl) [facility] HospitalRjmnnlhJCXMFHWCU3584-06-20 07:19:00 Test Item Value Reference Range Interpretation Comments Glucose Lvl (test code = Glucose Lvl) 262 70-99 H [facility] HospitalKcqdacpNTELYQGQN3475-62-95 07:19:00 Test Item Value Reference Range Interpretation Comments Creatinine Lvl (test code = Creatinine 0.8 0.5-1.4 N Lvl) [facility] HospitalYysgvjyTOBJDPGAJ1130-40-55 07:19:00 Test Item Value Reference Range Interpretation Comments BUN (test code = BUN) 20 7-22 N [facility] HospitalQuicyroBCEOBLOZXN0908-46-38 07:19:00 Test Item Value Reference Range Interpretation Comments Hgb (test code = Hgb) 14.0 12.0-16.0 N [facility] HospitalLyhrsneRAKZTAWKFM9518-08-23 07:19:00 Test Item Value Reference Range Interpretation Comments Hct (test code = Hct) 42.5 36.0-48.0 N [facility] HospitalCekzldjLSKUYWLZCH7210-88-72 07:19:00 Test Item Value Reference Range Interpretation Comments MCV (test code = MCV) 92.3 81.0-99.0 N [facility] HospitalGbonpflCEJAQIZNKT8329-30-15 07:19:00 Test Item Value Reference Range Interpretation Comments MCH (test code = MCH) 30.5 pg 27.0-31.0 N [facility] HospitalUungwtzPTSMLIICAN6272-91-57 07:19:00 Test Item Value Reference Range Interpretation Comments MCHC (test code = MCHC) 33.0 32.0-36.0 N [facility] HospitalMtrrfgaIQXJADCEPX9504-91-62 07:19:00 Test Item Value Reference Range Interpretation Comments RDW (test code = RDW) 14.6 11.5-14.5 H [facility] HospitalSrcctymLACTBVIUHU1834-86-64 07:19:00 Test Item Value Reference Range Interpretation Comments Platelet (test code = Platelet) 215 133-450 N [facility] HospitalGfcmrocQWKSEXJJLZ3940-13-62 07:19:00 Test Item Value Reference Range Interpretation Comments MPV (test code = MPV) 10.0 7.4-10.4 N [facility] HospitalCjbmoxpZLYOGNNTXU9472-09-79 07:19:00 Test Item Value Reference Range Interpretation Comments RBC (test code = RBC) 4.60 4.20-5.40 [facility]EyiwlzaMZSYWULLMN4897-36-49 07:19:00 Test Item Value Reference Range Interpretation Comments WBC (test code = WBC) 13.0 3.7-10.4 H [facility] HospitalQzdbcdgUIJFQBKQI0285-60-31 07:19:00 Test Item Value Reference Range Interpretation Comments AGAP (test code = AGAP) 14.3 10.0-20.0 N [facility] HospitalKcpbogfNKGNJEVTN2672-78-63 07:19:00 Test Item Value Reference Range Interpretation Comments eGFR (test code = eGFR) 75 [facility] HospitalHhhuugkAVDXGSOYS4315-57-11 07:19:00 Test Item Value Reference Range Interpretation Comments Sodium Lvl (test code = Sodium Lvl) 139 135-145 N [facility] HospitalFurhxxiSRCPMAFIC1625-15-57 07:19:00 Test Item Value Reference Range Interpretation Comments Chloride Lvl (test code = Chloride Lvl) 104 95-109 N [facility] HospitalUqeuxorCVIUIHGIO3455-38-71 07:19:00 Test Item Value Reference Range Interpretation Comments CO2 (test code = CO2) 25 24-32 N [facility] HospitalZeijkknAAOBXLOKJ6790-38-95 07:19:00 Test Item Value Reference Range Interpretation Comments Calcium Lvl (test code = Calcium Lvl) 10.7 8.5-10.5 H [facility] HospitalLrkelwnVQEEGDVWG6486-70-17 07:19:00 Test Item Value Reference Range Interpretation Comments Potassium Lvl (test code = Potassium 4.3 3.5-5.1 N Lvl) [facility] HospitalIofhzxxNJOBMDYLA1393-57-22 07:19:00 Test Item Value Reference Range Interpretation Comments Glucose Lvl (test code = Glucose Lvl) 262 70-99 H [facility] HospitalRydzovhMJLMERFLG4143-55-53 07:19:00 Test Item Value Reference Range Interpretation Comments Creatinine Lvl (test code = Creatinine 0.8 0.5-1.4 N Lvl) [facility] HospitalRpofbbtOWBOUQAQW9462-84-12 07:19:00 Test Item Value Reference Range Interpretation Comments BUN (test code = BUN) 20 7-22 N [facility] HospitalXlmxqibUXZBFFRKER7907-44-52 07:19:00 Test Item Value Reference Range Interpretation Comments Hgb (test code = Hgb) 14.0 12.0-16.0 N [facility] HospitalMgzjadaMIOCXESAPU5717-43-06 07:19:00 Test Item Value Reference Range Interpretation Comments Hct (test code = Hct) 42.5 36.0-48.0 N [facility] HospitalYjlppcyGWQEPZDQBQ8658-86-72 07:19:00 Test Item Value Reference Range Interpretation Comments MCV (test code = MCV) 92.3 81.0-99.0 N [facility] HospitalMyrracvUQRSNJHSVR9557-50-13 07:19:00 Test Item Value Reference Range Interpretation Comments MCH (test code = MCH) 30.5 pg 27.0-31.0 N [facility] HospitalNrmfkozKYNHVXNBVZ3471-40-36 07:19:00 Test Item Value Reference Range Interpretation Comments MCHC (test code = MCHC) 33.0 32.0-36.0 N [facility] HospitalLqogtzbPXITIEKSGL7991-24-32 07:19:00 Test Item Value Reference Range Interpretation Comments RDW (test code = RDW) 14.6 11.5-14.5 H [facility] HospitalXnvwgreONUSJXAFPG0714-97-35 07:19:00 Test Item Value Reference Range Interpretation Comments Platelet (test code = Platelet) 215 133-450 N [facility] HospitalRunrqskPQTITPCFKO2333-10-11 07:19:00 Test Item Value Reference Range Interpretation Comments MPV (test code = MPV) 10.0 7.4-10.4 N [facility] HospitalPnmwktxXMYWGNIYGI9626-57-31 07:19:00 Test Item Value Reference Range Interpretation Comments RBC (test code = RBC) 4.60 4.20-5.40 N [facility] HospitalKpjlspoRYSDRXGFWF1880-12-26 07:19:00 Test Item Value Reference Range Interpretation Comments WBC (test code = WBC) 13.0 3.7-10.4 H [facility] HospitalScxjgwcWXDLZOMTQ4300-71-16 07:19:00 Test Item Value Reference Range Interpretation Comments AGAP (test code = AGAP) 14.3 10.0-20.0 N [facility] HospitalMvvlgffYIRGLPLUQ0831-56-93 07:19:00 Test Item Value Reference Range Interpretation Comments eGFR (test code = eGFR) 75 [facility] HospitalKyovkiySUBMATYLC7783-37-10 07:19:00 Test Item Value Reference Range Interpretation Comments Sodium Lvl (test code = Sodium Lvl) 139 135-145 N [facility] HospitalYurwcupDPLYZMIQU4827-73-88 07:19:00 Test Item Value Reference Range Interpretation Comments Chloride Lvl (test code = Chloride Lvl) 104 95-109 N [facility] HospitalMbhpuxlOFLCVFYIY2849-32-81 07:19:00 Test Item Value Reference Range Interpretation Comments CO2 (test code = CO2) 25 24-32 N [facility] HospitalWviwsztCEBXYRCXJ9553-18-27 07:19:00 Test Item Value Reference Range Interpretation Comments Calcium Lvl (test code = Calcium Lvl) 10.7 8.5-10.5 H [facility] HospitalFwatbrbPJGNYTLIU0101-40-09 07:19:00 Test Item Value Reference Range Interpretation Comments Potassium Lvl (test code = Potassium 4.3 3.5-5.1 N Lvl) [facility] HospitalZqcqfftTNZXFVANP8963-64-58 07:19:00 Test Item Value Reference Range Interpretation Comments Glucose Lvl (test code = Glucose Lvl) 262 70-99 H [facility] HospitalBqhfwgzRQLMGQPAE3826-27-82 07:19:00 Test Item Value Reference Range Interpretation Comments Creatinine Lvl (test code = Creatinine 0.8 0.5-1.4 N Lvl) [facility] HospitalLegrgjqQQLZJDTSK4645-50-26 07:19:00 Test Item Value Reference Range Interpretation Comments BUN (test code = BUN) 20 7-22 N [facility] HospitalNngpqcrBKBATUEIFQ2905-77-85 07:19:00 Test Item Value Reference Range Interpretation Comments Hgb (test code = Hgb) 14.0 12.0-16.0 N [facility] HospitalJhhzgovUZJVMARQYP5941-79-66 07:19:00 Test Item Value Reference Range Interpretation Comments Hct (test code = Hct) 42.5 36.0-48.0 N [facility] HospitalYdyuegdZWQXGDZABQ4389-88-59 07:19:00 Test Item Value Reference Range Interpretation Comments MCV (test code = MCV) 92.3 81.0-99.0 N [facility] HospitalOthuhqjMBBORZUCCG3416-82-04 07:19:00 Test Item Value Reference Range Interpretation Comments MCH (test code = MCH) 30.5 pg 27.0-31.0 N [facility] HospitalWgqwuqyOBQGMYVQKB6185-00-27 07:19:00 Test Item Value Reference Range Interpretation Comments MCHC (test code = MCHC) 33.0 32.0-36.0 N [facility] HospitalWkxebnrDLRRDQOFPS1656-55-58 07:19:00 Test Item Value Reference Range Interpretation Comments RDW (test code = RDW) 14.6 11.5-14.5 H [facility] HospitalChtsnflHIWCNUDZHA1523-74-75 07:19:00 Test Item Value Reference Range Interpretation Comments Platelet (test code = Platelet) 215 133-450 N [facility] HospitalLlxjacdPODOVVLCQV9492-89-50 07:19:00 Test Item Value Reference Range Interpretation Comments MPV (test code = MPV) 10.0 7.4-10.4 N [facility] HospitalBaniuvmFTSZLYKARF7102-40-48 07:19:00 Test Item Value Reference Range Interpretation Comments RBC (test code = RBC) 4.60 4.20-5.40 N [facility] HospitalTeoielwZMELDIBESJ8525-08-33 07:19:00 Test Item Value Reference Range Interpretation Comments WBC (test code = WBC) 13.0 3.7-10.4 H [facility] HospitalUifenwcOSTQCJNNG0990-94-74 07:19:00 Test Item Value Reference Range Interpretation Comments AGAP (test code = AGAP) 14.3 10.0-20.0 N [facility] HospitalYtqbgdbITXSGVFGH8350-15-10 07:19:00 Test Item Value Reference Range Interpretation Comments eGFR (test code = eGFR) 75 [facility] HospitalSyhrhluLZAKBCHZG2119-88-23 07:19:00 Test Item Value Reference Range Interpretation Comments Sodium Lvl (test code = Sodium Lvl) 139 135-145 N [facility] HospitalLwxccnhJVANKWJAI1189-18-39 07:19:00 Test Item Value Reference Range Interpretation Comments Chloride Lvl (test code = Chloride Lvl) 104 95-109 N [facility] HospitalJfszonuHPKPDKBCB0638-24-90 07:19:00 Test Item Value Reference Range Interpretation Comments CO2 (test code = CO2) 25 24-32 N [facility] HospitalTbnedqyCPGCOMNHV9954-39-98 07:19:00 Test Item Value Reference Range Interpretation Comments Calcium Lvl (test code = Calcium Lvl) 10.7 8.5-10.5 H [facility] HospitalFjkxccqRIXRDPNFI8975-69-64 07:19:00 Test Item Value Reference Range Interpretation Comments Potassium Lvl (test code = Potassium 4.3 3.5-5.1 N Lvl) [facility] HospitalOsmibqyQVYYFDDNH3819-73-12 07:19:00 Test Item Value Reference Range Interpretation Comments Glucose Lvl (test code = Glucose Lvl) 262 70-99 H [facility] HospitalPickmblPLFQXFVOF1306-20-16 07:19:00 Test Item Value Reference Range Interpretation Comments Creatinine Lvl (test code = Creatinine 0.8 0.5-1.4 N Lvl) [facility] HospitalSkzlasbTCLHHVCCE8947-13-11 07:19:00 Test Item Value Reference Range Interpretation Comments BUN (test code = BUN) 20 7-22 N [facility] HospitalViunkqiJKUNLWHBKE3391-48-04 07:19:00 Test Item Value Reference Range Interpretation Comments Hgb (test code = Hgb) 14.0 12.0-16.0 N [facility] HospitalYzezgzkPCAKNGKLED8480-02-41 07:19:00 Test Item Value Reference Range Interpretation Comments Hct (test code = Hct) 42.5 36.0-48.0 N [facility] HospitalJdsepjqQHUTHMHJXK5215-58-88 07:19:00 Test Item Value Reference Range Interpretation Comments MCV (test code = MCV) 92.3 81.0-99.0 N [facility] HospitalPxpahdjXCVJWGXYLL2750-13-59 07:19:00 Test Item Value Reference Range Interpretation Comments MCH (test code = MCH) 30.5 pg 27.0-31.0 N [facility] HospitalDnsehupFFQQICPLES8941-76-54 07:19:00 Test Item Value Reference Range Interpretation Comments MCHC (test code = MCHC) 33.0 32.0-36.0 N [facility] HospitalTcrrgowMSSEQEONSB9801-17-95 07:19:00 Test Item Value Reference Range Interpretation Comments RDW (test code = RDW) 14.6 11.5-14.5 H [facility] HospitalCozdfzmJRLKCXXHRG3053-95-05 07:19:00 Test Item Value Reference Range Interpretation Comments Platelet (test code = Platelet) 215 133-450 N [facility] HospitalYbdfiheUZJABRGHGW3665-46-65 07:19:00 Test Item Value Reference Range Interpretation Comments MPV (test code = MPV) 10.0 7.4-10.4 N [facility] HospitalWtqftnaBTZYIGZAQZ1896-01-90 07:19:00 Test Item Value Reference Range Interpretation Comments RBC (test code = RBC) 4.60 4.20-5.40 N [facility] HospitalSrpclazSRWQSFNLKJ8313-59-67 07:19:00 Test Item Value Reference Range Interpretation Comments WBC (test code = WBC) 13.0 3.7-10.4 H [facility] HospitalDkhkdwkFXCCGYNKD2631-29-74 07:19:00 Test Item Value Reference Range Interpretation Comments AGAP (test code = AGAP) 14.3 10.0-20.0 N [facility] HospitalOvzmoihAZCVAJKAZ4309-40-01 07:19:00 Test Item Value Reference Range Interpretation Comments eGFR (test code = eGFR) 75 [facility] HospitalWqoldghNZQFWHFKI6462-29-84 07:19:00 Test Item Value Reference Range Interpretation Comments Sodium Lvl (test code = Sodium Lvl) 139 135-145 N [facility] HospitalDbthazmLJOQUCJSS1292-71-04 07:19:00 Test Item Value Reference Range Interpretation Comments Chloride Lvl (test code = Chloride Lvl) 104 95-109 N [facility] HospitalKjwuivqVZEKYAUIK3174-69-55 07:19:00 Test Item Value Reference Range Interpretation Comments CO2 (test code = CO2) 25 24-32 N [facility] HospitalHteynnhVIWJPTNFB4086-65-39 07:19:00 Test Item Value Reference Range Interpretation Comments Calcium Lvl (test code = Calcium Lvl) 10.7 8.5-10.5 H [facility] HospitalIdruzykHCPDXDGZS5322-78-46 07:19:00 Test Item Value Reference Range Interpretation Comments Potassium Lvl (test code = Potassium 4.3 3.5-5.1 N Lvl) [facility] HospitalCljxpccMEUEZZHPO8863-43-74 07:19:00 Test Item Value Reference Range Interpretation Comments Glucose Lvl (test code = Glucose Lvl) 262 70-99 H [facility] HospitalNqjebsuBOCZIPJUF5708-61-70 07:19:00 Test Item Value Reference Range Interpretation Comments Creatinine Lvl (test code = Creatinine 0.8 0.5-1.4 N Lvl) [facility] HospitalYtzohvlDCOYVDDCC8349-93-80 07:19:00 Test Item Value Reference Range Interpretation Comments BUN (test code = BUN) 20 7-22 N [facility] HospitalVhlowyrSNGHRIIAYI5858-64-98 07:19:00 Test Item Value Reference Range Interpretation Comments Hgb (test code = Hgb) 14.0 12.0-16.0 N [facility] HospitalUpoduhtNUWIJJNWWP3918-43-86 07:19:00 Test Item Value Reference Range Interpretation Comments Hct (test code = Hct) 42.5 36.0-48.0 N [facility] HospitalQfmqhwvQJVNJGQOQS9153-67-40 07:19:00 Test Item Value Reference Range Interpretation Comments MCV (test code = MCV) 92.3 81.0-99.0 N [facility] HospitalQqnbltoWZFMTOGAKP0369-63-64 07:19:00 Test Item Value Reference Range Interpretation Comments MCH (test code = MCH) 30.5 pg 27.0-31.0 N [facility] HospitalBsmihsxERVVTTEROD6105-57-97 07:19:00 Test Item Value Reference Range Interpretation Comments MCHC (test code = MCHC) 33.0 32.0-36.0 N [facility] HospitalEiwvugiBPRTKCDSFG9380-46-08 07:19:00 Test Item Value Reference Range Interpretation Comments RDW (test code = RDW) 14.6 11.5-14.5 H [facility] HospitalFwqoexnHEEJUJMUTM5376-27-51 07:19:00 Test Item Value Reference Range Interpretation Comments Platelet (test code = Platelet) 215 133-450 N [facility] HospitalExmqsxvBQSRGTUVZB7716-81-76 07:19:00 Test Item Value Reference Range Interpretation Comments MPV (test code = MPV) 10.0 7.4-10.4 N [facility] HospitalWwiuimqDXOETVDCYN6544-46-82 07:19:00 Test Item Value Reference Range Interpretation Comments RBC (test code = RBC) 4.60 4.20-5.40 N [facility] HospitalUrefpcoNADXGWSQQP6341-96-50 07:19:00 Test Item Value Reference Range Interpretation Comments WBC (test code = WBC) 13.0 3.7-10.4 H [facility] HospitalAizjcycOFJTZUJEL8473-25-19 07:19:00 Test Item Value Reference Range Interpretation Comments AGAP (test code = AGAP) 14.3 10.0-20.0 N [facility] HospitalYrxjhtyYOPDQSZMT6160-98-10 07:19:00 Test Item Value Reference Range Interpretation Comments eGFR (test code = eGFR) 75 [facility] HospitalAebpusiKFQLVZGSC3260-71-83 07:19:00 Test Item Value Reference Range Interpretation Comments Sodium Lvl (test code = Sodium Lvl) 139 135-145 N [facility] HospitalVpcebqlYMYWOBFEV9064-70-04 07:19:00 Test Item Value Reference Range Interpretation Comments Chloride Lvl (test code = Chloride Lvl) 104 95-109 N [facility] HospitalFyumkjlZQIXZHKPK0205-11-28 07:19:00 Test Item Value Reference Range Interpretation Comments CO2 (test code = CO2) 25 24-32 N [facility] HospitalWwwcwuxJSPICZAHE6779-67-57 07:19:00 Test Item Value Reference Range Interpretation Comments Calcium Lvl (test code = Calcium Lvl) 10.7 8.5-10.5 H [facility] HospitalZfhwxdsWMLJFTUCD9262-90-88 07:19:00 Test Item Value Reference Range Interpretation Comments Potassium Lvl (test code = Potassium 4.3 3.5-5.1 N Lvl) [facility] HospitalUhctcmqHCVFHVOJK0063-48-37 07:19:00 Test Item Value Reference Range Interpretation Comments Glucose Lvl (test code = Glucose Lvl) 262 70-99 H [facility] HospitalBefbsntFYKKOHQHM5067-63-80 07:19:00 Test Item Value Reference Range Interpretation Comments Creatinine Lvl (test code = Creatinine 0.8 0.5-1.4 N Lvl) [facility] HospitalNznrgefECAZTVUSI9781-54-57 07:19:00 Test Item Value Reference Range Interpretation Comments BUN (test code = BUN) 20 7-22 N [facility] HospitalSzvaorjVCUUMTNDZL6165-13-06 07:19:00 Test Item Value Reference Range Interpretation Comments Hgb (test code = Hgb) 14.0 12.0-16.0 N [facility] HospitalGvbknucUOFIRLTSLM5649-38-94 07:19:00 Test Item Value Reference Range Interpretation Comments Hct (test code = Hct) 42.5 36.0-48.0 N [facility] HospitalGrtqfsiNZVYOYBFGJ7346-30-57 07:19:00 Test Item Value Reference Range Interpretation Comments MCV (test code = MCV) 92.3 81.0-99.0 N [facility] HospitalOqddvrdUVXNPTWTVJ1312-87-21 07:19:00 Test Item Value Reference Range Interpretation Comments MCH (test code = MCH) 30.5 pg 27.0-31.0 N [facility] HospitalVxkmhswGQUOSRKBFX2862-78-28 07:19:00 Test Item Value Reference Range Interpretation Comments MCHC (test code = MCHC) 33.0 32.0-36.0 N [facility] HospitalXhrhoibZRLUGSFBBG5728-25-13 07:19:00 Test Item Value Reference Range Interpretation Comments RDW (test code = RDW) 14.6 11.5-14.5 H [facility] HospitalYawjcbnYOBGWBKKYP4099-99-62 07:19:00 Test Item Value Reference Range Interpretation Comments Platelet (test code = Platelet) 215 133-450 N [facility] HospitalTxeesbfZQAVGZZVCU7794-97-53 07:19:00 Test Item Value Reference Range Interpretation Comments MPV (test code = MPV) 10.0 7.4-10.4 N [facility] HospitalJqiidyqMIWGZUIGPF4994-16-89 07:19:00 Test Item Value Reference Range Interpretation Comments RBC (test code = RBC) 4.60 4.20-5.40 N [facility] HospitalUeeibwuKTSYSTEEON1237-59-18 07:19:00 Test Item Value Reference Range Interpretation Comments WBC (test code = WBC) 13.0 3.7-10.4 H [facility] HospitalLpvtxlfIIUMKGJWF6844-08-87 07:19:00 Test Item Value Reference Range Interpretation Comments AGAP (test code = AGAP) 14.3 10.0-20.0 N [facility] HospitalJisdsgmPEEOYYGJI2170-42-07 07:19:00 Test Item Value Reference Range Interpretation Comments eGFR (test code = eGFR) 75 [facility] HospitalOvjmjavADIEBGZEO4841-67-06 07:19:00 Test Item Value Reference Range Interpretation Comments Sodium Lvl (test code = Sodium Lvl) 139 135-145 N [facility] HospitalAeddkpdNDDCRWQJS8070-38-15 07:19:00 Test Item Value Reference Range Interpretation Comments Chloride Lvl (test code = Chloride Lvl) 104 95-109 N [facility] HospitalAxzyjerIJSXVUKJL7858-69-52 07:19:00 Test Item Value Reference Range Interpretation Comments CO2 (test code = CO2) 25 24-32 N [facility] HospitalPtilkvmIYWRJCJVF4736-48-89 07:19:00 Test Item Value Reference Range Interpretation Comments Calcium Lvl (test code = Calcium Lvl) 10.7 8.5-10.5 H [facility] HospitalYzkzlouSITAXAZEC4500-44-46 07:19:00 Test Item Value Reference Range Interpretation Comments Potassium Lvl (test code = Potassium 4.3 3.5-5.1 N Lvl) [facility] HospitalDttwgvaFYNIUASQA2894-37-32 07:19:00 Test Item Value Reference Range Interpretation Comments Glucose Lvl (test code = Glucose Lvl) 262 70-99 H [facility] HospitalBuibkenICVSRREQB9908-25-41 07:19:00 Test Item Value Reference Range Interpretation Comments Creatinine Lvl (test code = Creatinine 0.8 0.5-1.4 N Lvl) [facility] HospitalZmhtpxnAYZKCMBSQ4321-80-12 07:19:00 Test Item Value Reference Range Interpretation Comments BUN (test code = BUN) 20 7-22 N [facility] HospitalEoowwzePEJVHCCYAG9435-15-38 07:19:00 Test Item Value Reference Range Interpretation Comments Hgb (test code = Hgb) 14.0 12.0-16.0 N [facility] HospitalUcfksmdNIOHKCVWHP8578-96-85 07:19:00 Test Item Value Reference Range Interpretation Comments Hct (test code = Hct) 42.5 36.0-48.0 N [facility] HospitalAxxumizSOMUUFIROK5593-84-00 07:19:00 Test Item Value Reference Range Interpretation Comments MCV (test code = MCV) 92.3 81.0-99.0 N [facility] HospitalYlrpyfiIQEVTNNNKI6815-23-72 07:19:00 Test Item Value Reference Range Interpretation Comments MCH (test code = MCH) 30.5 pg 27.0-31.0 N [facility] HospitalEsidtieTCXWBJJCXV8947-83-48 07:19:00 Test Item Value Reference Range Interpretation Comments MCHC (test code = MCHC) 33.0 32.0-36.0 N [facility] HospitalItloziqOFIXRZPMYS8050-32-95 07:19:00 Test Item Value Reference Range Interpretation Comments RDW (test code = RDW) 14.6 11.5-14.5 H [facility] HospitalJxmiskfNPHVHTUSMV5546-35-69 07:19:00 Test Item Value Reference Range Interpretation Comments Platelet (test code = Platelet) 215 133-450 N [facility] HospitalKokojkiUDLZMXYRZI7135-23-27 07:19:00 Test Item Value Reference Range Interpretation Comments MPV (test code = MPV) 10.0 7.4-10.4 N [facility] HospitalJtmhiqcZZEXZQPFHR1912-93-70 07:19:00 Test Item Value Reference Range Interpretation Comments RBC (test code = RBC) 4.60 4.20-5.40 N [facility] HospitalUsqtaecHNUXGZGZZJ1695-52-19 07:19:00 Test Item Value Reference Range Interpretation Comments WBC (test code = WBC) 13.0 3.7-10.4 H [facility] GLUCOSE JMKZLZG3885-96-16 04:41:00 Test Item Value Reference Range Interpretation Comments Comment1 (test code = Comment1) Notify RN/ [facility] GLUCOSE HMYRJPD9091-22-59 04:41:00 Test Item Value Reference Range Interpretation Comments Gluc POC Lifscn (test code = Gluc POC 244 70-99 H Lifscn) [facility] GLUCOSE JQROBIU1772-27-02 04:41:00 Test Item Value Reference Range Interpretation Comments Comment1 (test code = Comment1) Notify RN/ [facility] GLUCOSE [id number] 04:41:00 Test Item Value Reference Range Interpretation Comments Gluc POC Lifscn (test code = Gluc POC 244 70-99 H [facility]) [facility] GLUCOSE KNZUWQL7621-88-10 04:41:00 Test Item Value Reference Range Interpretation Comments Comment1 (test code = Comment1) Notify RN/ [facility] GLUCOSE USZEVIP7066-54-42 04:41:00 Test Item Value Reference Range Interpretation Comments Gluc POC Lifscn (test code = Gluc POC 244 70-99 H [facility]) [facility] GLUCOSE RRQLVCO0927-91-92 04:41:00 Test Item Value Reference Range Interpretation Comments Comment1 (test code = Comment1) Notify RN/ [facility] GLUCOSE [id number] 04:41:00 Test Item Value Reference Range Interpretation Comments Gluc POC Lifscn (test code = Gluc POC 244 70-99 H [facility]) [facility] GLUCOSE XPZJQNX1224-90-18 04:41:00 Test Item Value Reference Range Interpretation Comments Comment1 (test code = Comment1) Notify RN/ [facility] GLUCOSE [id number] 04:41:00 Test Item Value Reference Range Interpretation Comments Gluc POC Lifscn (test code = Gluc POC 244 70-99 H [facility]) [facility] GLUCOSE MQGQJFM7637-74-03 04:41:00 Test Item Value Reference Range Interpretation Comments Comment1 (test code = Comment1) Notify RN/ [facility] GLUCOSE QXLMRBX9534-01-57 04:41:00 Test Item Value Reference Range Interpretation Comments Gluc POC Lifscn (test code = Gluc POC 244 70-99 H [facility]) [facility] GLUCOSE [id number] 04:41:00 Test Item Value Reference Range Interpretation Comments Comment1 (test code = Comment1) Notify RN/ [facility] GLUCOSE [id number] 04:41:00 Test Item Value Reference Range Interpretation Comments Gluc POC Lifscn (test code = Gluc POC 244 70-99 H [facility]) [facility] GLUCOSE [id number] 04:41:00 Test Item Value Reference Range Interpretation Comments Comment1 (test code = Comment1) Notify RN/ [facility] GLUCOSE [id number] 04:41:00 Test Item Value Reference Range Interpretation Comments Gluc POC Lifscn (test code = Gluc POC 244 70-99 H [facility]) [facility] HospitalVmsfkhbELNVDKLIZ9276-52-24 07:50:32 Test Item Value Reference Range Interpretation Comments Magnesium Lvl (test code = Magnesium 2.0 1.8-2.4 N Lvl) [facility] HospitalErhclkpXCHKTQROB4959-42-68 07:50:32 Test Item Value Reference Range Interpretation Comments Magnesium Lvl (test code = Magnesium 2.0 1.8-2.4 N Lvl) [facility] HospitalGifjjtcOXNFGMUHA8536-68-15 07:50:32 Test Item Value Reference Range Interpretation Comments Magnesium Lvl (test code = Magnesium 2.0 1.8-2.4 N Lvl) [facility] HospitalMmnurfyDTIMKWQGD9978-83-61 07:50:32 Test Item Value Reference Range Interpretation Comments Magnesium Lvl (test code = Magnesium 2.0 1.8-2.4 N Lvl) [facility] HospitalCpsuynyJMUNLXLPE5620-25-58 07:50:32 Test Item Value Reference Range Interpretation Comments Magnesium Lvl (test code = Magnesium 2.0 1.8-2.4 N Lvl) [facility] HospitalLugzaraQKQGBCCLM3011-89-58 07:50:32 Test Item Value Reference Range Interpretation Comments Magnesium Lvl (test code = Magnesium 2.0 1.8-2.4 N Lvl) [facility]ZmdixdcGUSQJWDFU5696-49-37 07:50:32 Test Item Value Reference Range Interpretation Comments Magnesium Lvl (test code = Magnesium 2.0 1.8-2.4 N Lvl) [facility] HospitalBsdcjzvKAJSRYJDW5371-69-79 07:50:32 Test Item Value Reference Range Interpretation Comments Magnesium Lvl (test code = Magnesium 2.0 1.8-2.4 N Lvl) [facility]trpguwEhzhcjaorymf7260-11-46 11:00:00 Test Item Value Reference Range Interpretation Comments Culture: Urine (test code = Culture: Urine) [facility] HospitalUbwfrrqOjtplfychocy7152-25-65 11:00:00 Test Item Value Reference Range Interpretation Comments Culture: Urine (test code = Culture: Urine) [facility] HospitalFubhigpJyhufekwpqfq9278-60-82 11:00:00 Test Item Value Reference Range Interpretation Comments Culture: Urine (test code = Culture: Urine) [facility] HospitalEmhzawrNjylblntqsmo6828-41-01 11:00:00 Test Item Value Reference Range Interpretation Comments Culture: Urine (test code = Culture: Urine) [facility] HospitalRmgjmnlScfkhuyvbjgj3827-88-97 11:00:00 Test Item Value Reference Range Interpretation Comments Culture: Urine (test code = Culture: Urine) [facility] HospitalVhnywfjImcwsxdoibqh4047-83-92 11:00:00 Test Item Value Reference Range Interpretation Comments Culture: Urine (test code = Culture: Urine) [facility] HospitalMykaobeZgowtvqzwvsy8710-79-11 11:00:00 Test Item Value Reference Range Interpretation Comments Culture: Urine (test code = Culture: Urine) [facility] HospitalNcxprrrYsibcumbvmua5881-73-06 11:00:00 Test Item Value Reference Range Interpretation Comments Culture: Urine (test code = Culture: Urine) [facility]BnxwxwvWYUEJYRTJH6117-12-93 06:52:38 Test Item Value Reference Range Interpretation Comments UA Urobilinogen (test code *NA*(10/04/2012 0.1-1.0 = UA Urobilinogen) 01:52:38) [facility] CenterLrctdtkEKBWCTXQTM1160-35-43 06:52:38 Test Item Value Reference Range Interpretation Comments UA Color (test code = Yellow *NA*(10/04/2012 UA Color) 01:52:38) [facility] CenterFxgdczoCEVDKCCFZB9909-64-27 06:52:38 Test Item Value Reference Range Interpretation Comments UA Bacteria (test code Occasional /HPF = UA Bacteria) *NA*(10/04/2012 01:52:38) [facility] CenterUusxorvBBPUKZYJLW2806-91-01 06:52:38 Test Item Value Reference Range Interpretation Comments UA Sq Epi (test code Occasional /LPF = UA Sq Epi) *NA*(10/04/2012 01:52:38) [facility] CenterPzridalSAVTQPLDCV2345-29-22 06:52:38 Test Item Value Reference Range Interpretation Comments UA RBC (test code = 6 See_Comment H [Automa juan message] The UA RBC) system which ge nerated this result transmit juan reference range : <=2. The reference range was not used to interpr et this result as lashonda l/abnormal. [facility] CenterTsljbeyRKTDAGYHUN2861-83-10 06:52:38 Test Item Value Reference Range Interpretation Comments UA Leuk Est (test code Small *ABN*(10/04/2012 A = UA Leuk Est) 01:52:38) [facility] CenterKrzjjptBDDJXWLOVO3160-75-18 06:52:38 Test Item Value Reference Range Interpretation Comments UA WBC (test code = 12 See_Comment H [Automa juan message] The UA WBC) system which ge nerated this result transmit juan reference range : <=5. The reference range was not used to interpr et this result as lashonda l/abnormal. [facility] CenterHpaxgcsWVUCHBMXFF7048-03-20 06:52:38 Test Item Value Reference Range Interpretation Comments UA Protein (test code = 10 mg/dL A UA Protein) *ABN*(10/04/2012 01:52:38) [facility] CenterMrvxratYZBKMSCNMW6722-85-88 06:52:38 Test Item Value Reference Range Interpretation Comments UA pH (test code = UA pH) 5.0 5.0-8.0 N [facility] HospitalIpxrntgJCCARMIPRV7634-81-55 06:52:38 Test Item Value Reference Range Interpretation Comments UA Spec Grav (test code = UA Spec Grav) 1.022 N [facility] HospitalUtvmtjcJVRHMSJNWM5370-77-94 06:52:38 Test Item Value Reference Range Interpretation Comments UA Turbidity (test code Slight A = UA Turbidity) *ABN*(10/04/2012 01:52:38) [facility] CenterKdbzwcrSFFQGOQLVT7407-50-33 06:52:38 Test Item Value Reference Range Interpretation Comments UA Nitrite (test code Negative (10/04/2012 N = UA Nitrite) 01:52:38) [facility] CenterTfgjwknSAYQWWWLZV4484-89-57 06:52:38 Test Item Value Reference Range Interpretation Comments UA Blood (test code = Small *ABN*(10/04/2012 A UA Blood) 01:52:38) [facility] CenterLgdlndiLHAAAKKHMF4615-20-17 06:52:38 Test Item Value Reference Range Interpretation Comments UA Bili (test code = Negative *NA*(10/04/2012 UA Bili) 01:52:38) [facility] CenterAvmzfaiEJHAYQPNZK7411-42-47 06:52:38 Test Item Value Reference Range Interpretation Comments UA Ketones (test code Negative mg/dL = UA Ketones) *NA*(10/04/2012 01:52:38) [facility] CenterMrxyorfUWBWCOIUXW5060-66-99 06:52:38 Test Item Value Reference Range Interpretation Comments UA Glucose (test code = 30 mg/dL A UA Glucose) *ABN*(10/04/2012 01:52:38) [facility] CenterVwaadnuPKZBXUQWEC6743-65-25 06:52:38 Test Item Value Reference Range Interpretation Comments UA Urobilinogen (test code *NA*(10/04/2012 0.1-1.0 = UA Urobilinogen) 01:52:38) [facility]FrifopdIHMVOVPMBD0635-96-62 06:52:38 Test Item Value Reference Range Interpretation Comments UA Color (test code = Yellow *NA*(10/04/2012 UA Color) 01:52:38) [facility] CenterVlztgswNOOZJYQZCY8287-66-21 06:52:38 Test Item Value Reference Range Interpretation Comments UA Bacteria (test code Occasional /HPF = UA Bacteria) *NA*(10/04/2012 01:52:38) [facility] HospitalPpaibcwKZTHLBJQVE8858-25-77 06:52:38 Test Item Value Reference Range Interpretation Comments UA Sq Epi (test code Occasional /LPF = UA Sq Epi) *NA*(10/04/2012 01:52:38) [facility] CenterUdfjpooHDQQFFJNWK7059-53-31 06:52:38 Test Item Value Reference Range Interpretation Comments UA RBC (test code = 6 See_Comment H [Automa juan message] The UA RBC) system which ge nerated this result transmit juan reference range : <=2. The reference range was not used to interpr et this result as lashonda l/abnormal. [facility] HospitalCqrnjieUCWTLVUYLE1458-25-03 06:52:38 Test Item Value Reference Range Interpretation Comments UA Leuk Est (test code Small *ABN*(10/04/2012 A = UA Leuk Est) 01:52:38) [facility] CenterCeeusvaWMSCKIBVOE9596-66-68 06:52:38 Test Item Value Reference Range Interpretation Comments UA WBC (test code = 12 See_Comment H [Automa juan message] The UA WBC) system which ge nerated this result transmit juan reference range : <=5. The reference range was not used to interpr et this result as lashonda l/abnormal. [facility] HospitalOotkymjQFDMDEPCGY3212-78-09 06:52:38 Test Item Value Reference Range Interpretation Comments UA Protein (test code = 10 mg/dL A UA Protein) *ABN*(10/04/2012 01:52:38) [facility] CenterNkluiwqJCXYCTHSDF4727-22-20 06:52:38 Test Item Value Reference Range Interpretation Comments UA pH (test code = UA pH) 5.0 5.0-8.0 N [facility] HospitalIqesdvkBZRZTCEJMV8984-61-62 06:52:38 Test Item Value Reference Range Interpretation Comments UA Spec Grav (test code = UA Spec Grav) 1.022 N [facility] HospitalMfvwmofDESNZBKUPH5412-25-63 06:52:38 Test Item Value Reference Range Interpretation Comments UA Turbidity (test code Slight A = UA Turbidity) *ABN*(10/04/2012 01:52:38) [facility] CenterOtbwjtgTMGXNDRFCA2329-47-74 06:52:38 Test Item Value Reference Range Interpretation Comments UA Nitrite (test code Negative (10/04/2012 N = UA Nitrite) 01:52:38) [facility] CenterMclnzquJQECLCWCXP8446-63-78 06:52:38 Test Item Value Reference Range Interpretation Comments UA Blood (test code = Small *ABN*(10/04/2012 A UA Blood) 01:52:38) [facility] CenterMsaurjbVWFRXNLWXA2708-17-38 06:52:38 Test Item Value Reference Range Interpretation Comments UA Bili (test code = Negative *NA*(10/04/2012 UA Bili) 01:52:38) [facility] CenterFejbeumYHMEVTJBIY1623-29-66 06:52:38 Test Item Value Reference Range Interpretation Comments UA Ketones (test code Negative mg/dL = UA Ketones) *NA*(10/04/2012 01:52:38) [facility] CenterYvqxnamTXLSUNIUVA5419-74-18 06:52:38 Test Item Value Reference Range Interpretation Comments UA Glucose (test code = 30 mg/dL A UA Glucose) *ABN*(10/04/2012 01:52:38) [facility] CenterEjlmahcWBLQKTXAVF2478-25-07 06:52:38 Test Item Value Reference Range Interpretation Comments UA Urobilinogen (test code *NA*(10/04/2012 0.1-1.0 = UA Urobilinogen) 01:52:38) [facility] CenterZzbngenQYVYGPYAKH7174-77-99 06:52:38 Test Item Value Reference Range Interpretation Comments UA Color (test code = Yellow *NA*(10/04/2012 UA Color) 01:52:38) [facility] CenterSljfcbdONWXCLNVCM3370-64-77 06:52:38 Test Item Value Reference Range Interpretation Comments UA Bacteria (test code Occasional /HPF = UA Bacteria) *NA*(10/04/2012 01:52:38) [facility] HospitalMykjjjdFYNUXHJDDO1013-92-64 06:52:38 Test Item Value Reference Range Interpretation Comments UA Sq Epi (test code Occasional /LPF = UA Sq Epi) *NA*(10/04/2012 01:52:38) [facility] CenterBmpzpzjOVXPFIBOYE2313-70-34 06:52:38 Test Item Value Reference Range Interpretation Comments UA RBC (test code = 6 See_Comment H [Automa juan message] The UA RBC) system which ge nerated this result transmit juan reference range : <=2. The reference range was not used to interpr et this result as lashonda l/abnormal. [facility] CenterSencyggGHOJHLVJGY4726-66-37 06:52:38 Test Item Value Reference Range Interpretation Comments UA Leuk Est (test code Small *ABN*(10/04/2012 A = UA Leuk Est) 01:52:38) [facility] CenterUqeulxtXXDMCLHQJL3807-00-25 06:52:38 Test Item Value Reference Range Interpretation Comments UA WBC (test code = 12 See_Comment H [Automa juan message] The UA WBC) system which ge nerated this result transmit juan reference range : <=5. The reference range was not used to interpr et this result as lashonda l/abnormal. [facility] CenterKcpwujeVAGXLEWSIR6332-54-66 06:52:38 Test Item Value Reference Range Interpretation Comments UA Protein (test code = 10 mg/dL A UA Protein) *ABN*(10/04/2012 01:52:38) [facility] CenterGbnqxseJAQRFRUSIC6093-56-08 06:52:38 Test Item Value Reference Range Interpretation Comments UA pH (test code = UA pH) 5.0 5.0-8.0 N [facility] CenterTzndkqaEGRHGRYNQL0576-99-34 06:52:38 Test Item Value Reference Range Interpretation Comments UA Spec Grav (test code = UA Spec Grav) 1.022 N [facility] HospitalSznkhwdXKFUTLKQTK6493-85-98 06:52:38 Test Item Value Reference Range Interpretation Comments UA Turbidity (test code Slight A = UA Turbidity) *ABN*(10/04/2012 01:52:38) [facility] CenterJgzzyliMFAKKOYFZF2327-00-74 06:52:38 Test Item Value Reference Range Interpretation Comments UA Nitrite (test code Negative (10/04/2012 N = UA Nitrite) 01:52:38) [facility] CenterGdkwyjiXZVPGIVPIB8768-88-56 06:52:38 Test Item Value Reference Range Interpretation Comments UA Blood (test code = Small *ABN*(10/04/2012 A UA Blood) 01:52:38) [facility] CenterNiaqffjSSVGMVYNWV6319-35-63 06:52:38 Test Item Value Reference Range Interpretation Comments UA Bili (test code = Negative *NA*(10/04/2012 UA Bili) 01:52:38) [facility] CenterFiaweyiKDVMOROBYL6635-12-56 06:52:38 Test Item Value Reference Range Interpretation Comments UA Ketones (test code Negative mg/dL = UA Ketones) *NA*(10/04/2012 01:52:38) [facility] CenterGlyowqpZXRJTQQWPN9337-00-83 06:52:38 Test Item Value Reference Range Interpretation Comments UA Glucose (test code = 30 mg/dL A UA Glucose) *ABN*(10/04/2012 01:52:38) [facility] CenterWcxwpahAIHYJZARQN2548-67-09 06:52:38 Test Item Value Reference Range Interpretation Comments UA Urobilinogen (test code *NA*(10/04/2012 0.1-1.0 = UA Urobilinogen) 01:52:38) [facility] CenterLytfanmDVEEZJUCXC7285-14-13 06:52:38 Test Item Value Reference Range Interpretation Comments UA Color (test code = Yellow *NA*(10/04/2012 UA Color) 01:52:38) [facility] CenterGxquxrbBSHSLOEGQL4140-18-40 06:52:38 Test Item Value Reference Range Interpretation Comments UA Bacteria (test code Occasional /HPF = UA Bacteria) *NA*(10/04/2012 01:52:38) [facility] CenterYjjcbjiRMNNASFEPC4859-73-59 06:52:38 Test Item Value Reference Range Interpretation Comments UA Sq Epi (test code Occasional /LPF = UA Sq Epi) *NA*(10/04/2012 01:52:38) [facility] CenterAhvpoffKPNFKLYKFO5179-57-73 06:52:38 Test Item Value Reference Range Interpretation Comments UA RBC (test code = 6 See_Comment H [Automa juan message] The UA RBC) system which ge nerated this result transmit juan reference range : <=2. The reference range was not used to interpr et this result as lashonda l/abnormal. [facility] CenterFzbdvsmVRGSUYDAGU8046-32-83 06:52:38 Test Item Value Reference Range Interpretation Comments UA Leuk Est (test code Small *ABN*(10/04/2012 A = UA Leuk Est) 01:52:38) [facility] CenterLrsessrRKIFPSOVAP8812-06-09 06:52:38 Test Item Value Reference Range Interpretation Comments UA WBC (test code = 12 See_Comment H [Automa juan message] The UA WBC) system which ge nerated this result transmit juan reference range : <=5. The reference range was not used to interpr et this result as lashonda l/abnormal. [facility] CenterVedqaopGORCDZMHHH8671-23-67 06:52:38 Test Item Value Reference Range Interpretation Comments UA Protein (test code = 10 mg/dL A UA Protein) *ABN*(10/04/2012 01:52:38) [facility] CenterEpiameiPNVCNQCWKD8863-99-16 06:52:38 Test Item Value Reference Range Interpretation Comments UA pH (test code = UA pH) 5.0 5.0-8.0 N [facility] CenterFmnslcqQCCHKRRZWB3343-88-80 06:52:38 Test Item Value Reference Range Interpretation Comments UA Spec Grav (test code = UA Spec Grav) 1.022 N [facility] CenterUdsrxtsIVVODPLLNY8134-83-21 06:52:38 Test Item Value Reference Range Interpretation Comments UA Turbidity (test code Slight A = UA Turbidity) *ABN*(10/04/2012 01:52:38) [facility] CenterZlunvnsGBOLJUPLLD8550-00-22 06:52:38 Test Item Value Reference Range Interpretation Comments UA Nitrite (test code Negative (10/04/2012 N = UA Nitrite) 01:52:38) [facility] CenterQyasrlnTEYPBFPKBH5213-16-94 06:52:38 Test Item Value Reference Range Interpretation Comments UA Blood (test code = Small *ABN*(10/04/2012 A UA Blood) 01:52:38) [facility] CenterTstrlyuLAMIFOZQIS4785-80-85 06:52:38 Test Item Value Reference Range Interpretation Comments UA Bili (test code = Negative *NA*(10/04/2012 UA Bili) 01:52:38) [facility] CenterPexgzmrZYUQPZZSAU0262-49-08 06:52:38 Test Item Value Reference Range Interpretation Comments UA Ketones (test code Negative mg/dL = UA Ketones) *NA*(10/04/2012 01:52:38) [facility] CenterWqerbyaHNOSATFLWR5200-65-26 06:52:38 Test Item Value Reference Range Interpretation Comments UA Glucose (test code = 30 mg/dL A UA Glucose) *ABN*(10/04/2012 01:52:38) [facility] CenterNdptmkeLWMOEXMZXE4374-43-52 06:52:38 Test Item Value Reference Range Interpretation Comments UA Urobilinogen (test code *NA*(10/04/2012 0.1-1.0 = UA Urobilinogen) 01:52:38) [facility] CenterWqbmdxnKNEHMLNVCH8720-58-34 06:52:38 Test Item Value Reference Range Interpretation Comments UA Color (test code = Yellow *NA*(10/04/2012 UA Color) 01:52:38) [facility] CenterNekmobuFFELZKQUEB5910-10-32 06:52:38 Test Item Value Reference Range Interpretation Comments UA Bacteria (test code Occasional /HPF = UA Bacteria) *NA*(10/04/2012 01:52:38) [facility] CenterYhbitpzJMYHEFZHCH4823-28-47 06:52:38 Test Item Value Reference Range Interpretation Comments UA Sq Epi (test code Occasional /LPF = UA Sq Epi) *NA*(10/04/2012 01:52:38) [facility] CenterQkfavhfKYKAENXFTA3185-20-97 06:52:38 Test Item Value Reference Range Interpretation Comments UA RBC (test code = 6 See_Comment H [Automa juan message] The UA RBC) system which ge nerated this result transmit juan reference range : <=2. The reference range was not used to interpr et this result as lashonda l/abnormal. [facility] CenterUcxjthbYNFIATZCSY0641-55-90 06:52:38 Test Item Value Reference Range Interpretation Comments UA Leuk Est (test code Small *ABN*(10/04/2012 A = UA Leuk Est) 01:52:38) [facility] CenterIfwceocOQEBMNRGAO0308-04-49 06:52:38 Test Item Value Reference Range Interpretation Comments UA WBC (test code = 12 See_Comment H [Automa juan message] The UA WBC) system which ge nerated this result transmit juan reference range : <=5. The reference range was not used to interpr et this result as lashonda l/abnormal. [facility] CenterPojxpvfGTBMSVVRUU8899-09-47 06:52:38 Test Item Value Reference Range Interpretation Comments UA Protein (test code = 10 mg/dL A UA Protein) *ABN*(10/04/2012 01:52:38) [facility] CenterBonfsqwSVSCWFXYOP3187-43-88 06:52:38 Test Item Value Reference Range Interpretation Comments UA pH (test code = UA pH) 5.0 5.0-8.0 N [facility] CenterJosgogaHCJKXTUSTV0135-22-88 06:52:38 Test Item Value Reference Range Interpretation Comments UA Spec Grav (test code = UA Spec Grav) 1.022 N [facility] CenterTacgvgeZAZXMVSSON8474-30-29 06:52:38 Test Item Value Reference Range Interpretation Comments UA Turbidity (test code Slight A = UA Turbidity) *ABN*(10/04/2012 01:52:38) [facility] CenterQeemxplACYPPUGKFF3968-61-03 06:52:38 Test Item Value Reference Range Interpretation Comments UA Nitrite (test code Negative (10/04/2012 N = UA Nitrite) 01:52:38) [facility] CenterVgwoyflTDRXKDIEBD1984-29-35 06:52:38 Test Item Value Reference Range Interpretation Comments UA Blood (test code = Small *ABN*(10/04/2012 A UA Blood) 01:52:38) [facility] CenterJzlbduzKMCXIPFKOM1402-34-51 06:52:38 Test Item Value Reference Range Interpretation Comments UA Bili (test code = Negative *NA*(10/04/2012 UA Bili) 01:52:38) [facility] CenterKwsxmmbYVNNDERDGP7854-93-04 06:52:38 Test Item Value Reference Range Interpretation Comments UA Ketones (test code Negative mg/dL = UA Ketones) *NA*(10/04/2012 01:52:38) [facility] CenterMdobhtvOXRSZEMVNC1528-57-78 06:52:38 Test Item Value Reference Range Interpretation Comments UA Glucose (test code = 30 mg/dL A UA Glucose) *ABN*(10/04/2012 01:52:38) [facility] CenterGgfokbfDCNKBPMESJ2051-49-27 06:52:38 Test Item Value Reference Range Interpretation Comments UA Urobilinogen (test code *NA*(10/04/2012 0.1-1.0 = UA Urobilinogen) 01:52:38) [facility] CenterOczstciJMVPNJPOSU8288-35-73 06:52:38 Test Item Value Reference Range Interpretation Comments UA Color (test code = Yellow *NA*(10/04/2012 UA Color) 01:52:38) [facility]HsijrrjZFHEEHYLEZ6317-90-14 06:52:38 Test Item Value Reference Range Interpretation Comments UA Bacteria (test code Occasional /HPF = UA Bacteria) *NA*(10/04/2012 01:52:38) [facility] HospitalFjqgnnuEWHJDYSAVH1014-19-80 06:52:38 Test Item Value Reference Range Interpretation Comments UA Sq Epi (test code Occasional /LPF = UA Sq Epi) *NA*(10/04/2012 01:52:38) [facility] HospitalCxloarkOZLYGAJXUK3758-74-16 06:52:38 Test Item Value Reference Range Interpretation Comments UA RBC (test code = 6 See_Comment H [Automa juan message] The UA RBC) system which ge nerated this result transmit juan reference range : <=2. The reference range was not used to interpr et this result as lashonda l/abnormal. [facility] RenaissanceUmxxtfcJBEDQBYLNS1747-11-36 06:52:38 Test Item Value Reference Range Interpretation Comments UA Leuk Est (test code Small *ABN*(10/04/2012 A = UA Leuk Est) 01:52:38) [facility] HospitalAbeamluSMDPBLVEAC2584-22-65 06:52:38 Test Item Value Reference Range Interpretation Comments UA WBC (test code = 12 See_Comment H [Automa juan message] The UA WBC) system which ge nerated this result transmit juan reference range : <=5. The reference range was not used to interpr et this result as lashonda l/abnormal. [facility] RenaissanceLlkwilwYMFXEDOTUJ2319-45-60 06:52:38 Test Item Value Reference Range Interpretation Comments UA Protein (test code = 10 mg/dL A UA Protein) *ABN*(10/04/2012 01:52:38) [facility] HospitalDykortoCURKBADPBH6855-44-99 06:52:38 Test Item Value Reference Range Interpretation Comments UA pH (test code = UA pH) 5.0 5.0-8.0 N [facility] HospitalVadcutxWFOYHYWOCJ0596-48-50 06:52:38 Test Item Value Reference Range Interpretation Comments UA Spec Grav (test code = UA Spec Grav) 1.022 N [facility] TdmjdnjOUAVJSKLZO7718-55-25 06:52:38 Test Item Value Reference Range Interpretation Comments UA Turbidity (test code Slight A = UA Turbidity) *ABN*(10/04/2012 01:52:38) [facility] CenterChrtywcHJXJDHTUWK5269-83-90 06:52:38 Test Item Value Reference Range Interpretation Comments UA Nitrite (test code Negative (10/04/2012 N = UA Nitrite) 01:52:38) [facility] CenterLvilyonGFNLPVTFPE8743-37-40 06:52:38 Test Item Value Reference Range Interpretation Comments UA Blood (test code = Small *ABN*(10/04/2012 A UA Blood) 01:52:38) [facility] CenterIvfplsaNYPQYHUOIZ3741-37-81 06:52:38 Test Item Value Reference Range Interpretation Comments UA Bili (test code = Negative *NA*(10/04/2012 UA Bili) 01:52:38) [facility] CenterRttfqxqRFWKUTQNSB4156-51-48 06:52:38 Test Item Value Reference Range Interpretation Comments UA Ketones (test code Negative mg/dL = UA Ketones) *NA*(10/04/2012 01:52:38) [facility] CenterInaxzlpJAKTLPEWRN8693-52-14 06:52:38 Test Item Value Reference Range Interpretation Comments UA Glucose (test code = 30 mg/dL A UA Glucose) *ABN*(10/04/2012 01:52:38) [facility] CenterDfhlauqTWNWSWNXLJ8329-47-00 06:52:38 Test Item Value Reference Range Interpretation Comments UA Urobilinogen (test code *NA*(10/04/2012 0.1-1.0 = UA Urobilinogen) 01:52:38) [facility] CenterLtkfywqNJWBMJMHKG4091-22-37 06:52:38 Test Item Value Reference Range Interpretation Comments UA Color (test code = Yellow *NA*(10/04/2012 UA Color) 01:52:38) [facility] CenterGrnnoqzFUYWXYJXDJ5116-60-63 06:52:38 Test Item Value Reference Range Interpretation Comments UA Bacteria (test code Occasional /HPF = UA Bacteria) *NA*(10/04/2012 01:52:38) [facility] CenterZsoophrGOILEIOPVD3823-64-85 06:52:38 Test Item Value Reference Range Interpretation Comments UA Sq Epi (test code Occasional /LPF = UA Sq Epi) *NA*(10/04/2012 01:52:38) [facility] HospitalKzxtrrgUIWHVKMVHR1635-51-72 06:52:38 Test Item Value Reference Range Interpretation Comments UA RBC (test code = 6 See_Comment H [Automa juan message] The UA RBC) system which ge nerated this result transmit juan reference range : <=2. The reference range was not used to interpr et this result as lashonda l/abnormal. [facility] HospitalCzlthrmATFSXMADSM4709-29-09 06:52:38 Test Item Value Reference Range Interpretation Comments UA Leuk Est (test code Small *ABN*(10/04/2012 A = UA Leuk Est) 01:52:38) [facility] CenterJjwxlpiRZKXGDWBIZ7699-84-61 06:52:38 Test Item Value Reference Range Interpretation Comments UA WBC (test code = 12 See_Comment H [Automa juan message] The UA WBC) system which ge nerated this result transmit juan reference range : <=5. The reference range was not used to interpr et this result as lashonda l/abnormal. [facility]HgosmhcWKFILNIVHS1989-14-93 06:52:38 Test Item Value Reference Range Interpretation Comments UA Protein (test code = 10 mg/dL A UA Protein) *ABN*(10/04/2012 01:52:38) [facility] CenterYmhhdtnPSFLDKPHQW1468-81-32 06:52:38 Test Item Value Reference Range Interpretation Comments UA pH (test code = UA pH) 5.0 5.0-8.0 N [facility] CenterAkwyuleVXJMGMIYUB6244-45-38 06:52:38 Test Item Value Reference Range Interpretation Comments UA Spec Grav (test code = UA Spec Grav) 1.022 N [facility] HospitalXeohartCBWFZFEODI7304-67-64 06:52:38 Test Item Value Reference Range Interpretation Comments UA Turbidity (test code Slight A = UA Turbidity) *ABN*(10/04/2012 01:52:38) [facility] HospitalTuuvxgpRIVXKCYAFV1379-38-50 06:52:38 Test Item Value Reference Range Interpretation Comments UA Nitrite (test code Negative (10/04/2012 N = UA Nitrite) 01:52:38) [facility] HospitalKmbwtdrIIOOZEHIRO5592-15-45 06:52:38 Test Item Value Reference Range Interpretation Comments UA Blood (test code = Small *ABN*(10/04/2012 A UA Blood) 01:52:38) [facility]WcwrcjdHUUVKMZZIV0458-80-17 06:52:38 Test Item Value Reference Range Interpretation Comments UA Bili (test code = Negative *NA*(10/04/2012 UA Bili) 01:52:38) [facility] CenterNbuitefOJPIWIJLNJ8038-51-22 06:52:38 Test Item Value Reference Range Interpretation Comments UA Ketones (test code Negative mg/dL = UA Ketones) *NA*(10/04/2012 01:52:38) [facility] CenterJojmpfvGWWQFJPUXN3060-33-70 06:52:38 Test Item Value Reference Range Interpretation Comments UA Glucose (test code = 30 mg/dL A UA Glucose) *ABN*(10/04/2012 01:52:38) [facility] CenterNbzzyarYWUTWUVDAL1624-67-73 06:52:38 Test Item Value Reference Range Interpretation Comments UA Urobilinogen (test code *NA*(10/04/2012 0.1-1.0 = UA Urobilinogen) 01:52:38) [facility] CenterXuzprpvNMPIWHLJHJ6618-56-18 06:52:38 Test Item Value Reference Range Interpretation Comments UA Color (test code = Yellow *NA*(10/04/2012 UA Color) 01:52:38) [facility] CenterIlfefdqUCXYBZBDCA2727-45-10 06:52:38 Test Item Value Reference Range Interpretation Comments UA Bacteria (test code Occasional /HPF = UA Bacteria) *NA*(10/04/2012 01:52:38) [facility] CenterDfhvykxIOZURKVNVM3558-00-24 06:52:38 Test Item Value Reference Range Interpretation Comments UA Sq Epi (test code Occasional /LPF = UA Sq Epi) *NA*(10/04/2012 01:52:38) [facility] CenterAvouhuiOBGCJQOGYJ2033-49-23 06:52:38 Test Item Value Reference Range Interpretation Comments UA RBC (test code = 6 See_Comment H [Automa juan message] The UA RBC) system which ge nerated this result transmit juan reference range : <=2. The reference range was not used to interpr et this result as lashonda l/abnormal. [facility] CenterJiyatgdQVMABTWMXG6955-37-21 06:52:38 Test Item Value Reference Range Interpretation Comments UA Leuk Est (test code Small *ABN*(10/04/2012 A = UA Leuk Est) 01:52:38) [facility] HospitalXbcszqvDWXTAGGUWM1694-88-35 06:52:38 Test Item Value Reference Range Interpretation Comments UA WBC (test code = 12 See_Comment H [Automa juan message] The UA WBC) system which ge nerated this result transmit juan reference range : <=5. The reference range was not used to interpr et this result as lashonda l/abnormal. [facility] HospitalIxzicrxMTTFYIBJCT4559-77-93 06:52:38 Test Item Value Reference Range Interpretation Comments UA Protein (test code = 10 mg/dL A UA Protein) *ABN*(10/04/2012 01:52:38) [facility] HospitalOsxkkoeYQZJHHACXK7242-82-04 06:52:38 Test Item Value Reference Range Interpretation Comments UA pH (test code = UA pH) 5.0 5.0-8.0 N [facility] CenterKxwnnbnBXDCJVRATH1423-98-53 06:52:38 Test Item Value Reference Range Interpretation Comments UA Spec Grav (test code = UA Spec Grav) 1.022 N [facility] HospitalOetwixiVFSRAQLAKK6872-35-60 06:52:38 Test Item Value Reference Range Interpretation Comments UA Turbidity (test code Slight A = UA Turbidity) *ABN*(10/04/2012 01:52:38) [facility] HospitalKimyxcfZIEVGPHFLB7381-89-46 06:52:38 Test Item Value Reference Range Interpretation Comments UA Nitrite (test code Negative (10/04/2012 N = UA Nitrite) 01:52:38) [facility] HospitalMqsfqnxQIEHVUTFRL7202-59-59 06:52:38 Test Item Value Reference Range Interpretation Comments UA Blood (test code = Small *ABN*(10/04/2012 A UA Blood) 01:52:38) [facility] HospitalDvsrpcqMNTSWCCJPR8669-55-02 06:52:38 Test Item Value Reference Range Interpretation Comments UA Bili (test code = Negative *NA*(10/04/2012 UA Bili) 01:52:38) [facility] HospitalSjutzomJLHBOWOSOD6910-23-52 06:52:38 Test Item Value Reference Range Interpretation Comments UA Ketones (test code Negative mg/dL = UA Ketones) *NA*(10/04/2012 01:52:38) [facility] HospitalLhwtdopZYRCXZUJNM5505-45-45 06:52:38 Test Item Value Reference Range Interpretation Comments UA Glucose (test code = 30 mg/dL A UA Glucose) *ABN*(10/04/2012 01:52:38) [facility] HospitalWbldtjtGCQSCWFVX6736-74-93 06:52:00 Test Item Value Reference Range Interpretation Comments Phosphorus (test code = Phosphorus) 3.5 2.5-4.5 N [facility] HospitalFsyhbvpVTGSOJIIG5121-69-29 06:52:00 Test Item Value Reference Range Interpretation Comments AGAP (test code = AGAP) 13.4 10.0-20.0 N [facility] HospitalXwuogeiMIPKKAQJG3937-24-45 06:52:00 Test Item Value Reference Range Interpretation Comments Glucose Lvl (test code = Glucose Lvl) 181 70-99 H [facility] HospitalVeiehpdISZENRJAK2296-76-55 06:52:00 Test Item Value Reference Range Interpretation Comments Creatinine Lvl (test code = Creatinine 0.9 0.5-1.4 N Lvl) [facility] HospitalQjhfkzfFRFLHRVMZ7239-22-57 06:52:00 Test Item Value Reference Range Interpretation Comments BUN (test code = BUN) 17 7-22 N [facility] HospitalDnlkymdKDEYWIPII4125-64-10 06:52:00 Test Item Value Reference Range Interpretation Comments Sodium Lvl (test code = Sodium Lvl) 140 135-145 N [facility] HospitalQuhrrzvCCHTBWAGZ0232-10-70 06:52:00 Test Item Value Reference Range Interpretation Comments Chloride Lvl (test code = Chloride Lvl) 105 95-109 N [facility] HospitalVcafsgbUJFZSJESJ3912-47-02 06:52:00 Test Item Value Reference Range Interpretation Comments Calcium Lvl (test code = Calcium Lvl) 9.7 8.5-10.5 N [facility] HospitalNyiffxaKASWUJAZI8694-21-69 06:52:00 Test Item Value Reference Range Interpretation Comments Potassium Lvl (test code = Potassium 4.4 3.5-5.1 N Lvl) [facility] HospitalPpdnrjhMHPRYFGQS4233-48-34 06:52:00 Test Item Value Reference Range Interpretation Comments CO2 (test code = CO2) 26 24-32 N [facility] HospitalGhhdneoHTFMTVZUM3719-18-55 06:52:00 Test Item Value Reference Range Interpretation Comments eGFR (test code = eGFR) 65 [facility] HospitalFkwkjpfCBVCBAHVZ9784-69-16 06:52:00 Test Item Value Reference Range Interpretation Comments Magnesium Lvl (test code = Magnesium 1.5 1.8-2.4 L Lvl) [facility] HospitalSotsbpeIEBQNKTGYO8780-43-46 06:52:00 Test Item Value Reference Range Interpretation Comments RBC (test code = RBC) 4.85 4.20-5.40 N [facility] HospitalIckhlngKHDFNNTDDL4414-39-34 06:52:00 Test Item Value Reference Range Interpretation Comments WBC (test code = WBC) 9.2 3.7-10.4 N [facility] HospitalCgxjxwuUDEKHHQKBV6804-13-59 06:52:00 Test Item Value Reference Range Interpretation Comments Hgb (test code = Hgb) 14.9 12.0-16.0 N [facility] HospitalRjazvakTWPVUBRYER2622-70-52 06:52:00 Test Item Value Reference Range Interpretation Comments MCHC (test code = MCHC) 33.3 32.0-36.0 N [facility] HospitalLlqmstnNSVQOPKBYN5558-83-17 06:52:00 Test Item Value Reference Range Interpretation Comments MCH (test code = MCH) 30.7 pg 27.0-31.0 N [facility] HospitalCutbsgeDKBPOHEVRN1477-71-83 06:52:00 Test Item Value Reference Range Interpretation Comments Hct (test code = Hct) 44.9 36.0-48.0 N [facility] HospitalFkrdjgbIJEZSXTCBC8908-49-82 06:52:00 Test Item Value Reference Range Interpretation Comments MCV (test code = MCV) 92.4 81.0-99.0 N [facility] HospitalDhzcvroCZYBWDIVLK1837-10-99 06:52:00 Test Item Value Reference Range Interpretation Comments RDW (test code = RDW) 14.5 11.5-14.5 N [facility] HospitalNfmlyqoOEXQMRIUZJ4075-03-44 06:52:00 Test Item Value Reference Range Interpretation Comments Platelet (test code = Platelet) 213 133-450 N [facility] HospitalGmuectjBIJDOSZBZR9366-46-14 06:52:00 Test Item Value Reference Range Interpretation Comments MPV (test code = MPV) 9.5 7.4-10.4 N [facility] HospitalQhaydqsPRGSKTYAEB1469-30-02 06:52:00 Test Item Value Reference Range Interpretation Comments Segs-Bands # (test code = Segs-Bands #) 7.7 1.5-8.1 N [facility] HospitalVvjguvcUZVSYILJPJ2814-09-45 06:52:00 Test Item Value Reference Range Interpretation Comments Basophils (test code = 0.3 See_Comment N [Aut omated message] The Basophils) system which ge nerated this result tra nsmitted reference range : <=1.0. The reference r leatha was not used to int erpret this result as normal/abnormal . [facility] HospitalFjuxrboGUNYELAWSF8234-36-84 06:52:00 Test Item Value Reference Range Interpretation Comments Monocytes # (test code 0.6 See_Comment N [Aut omated message] The = Monocytes #) system which generated this result tra nsmitted reference range : <=0.8. The reference r leatha was not used to int erpret this result as normal/abnormal . [facility] HospitalLdlvqumKCWZCRKWYT8261-16-90 06:52:00 Test Item Value Reference Range Interpretation Comments Lymphocytes # (test code = Lymphocytes 0.9 1.0-5.5 L #) [facility] HospitalBvespwmKOUVZDGXZP4259-00-32 06:52:00 Test Item Value Reference Range Interpretation Comments Lymphocytes (test code = Lymphocytes) 9.5 20.0-40.0 L [facility] HospitalDjtlbrpKAOJAZYVUL2370-09-79 06:52:00 Test Item Value Reference Range Interpretation Comments Segs (test code = Segs) 84.1 45.0-75.0 H [facility] HospitalSsdrfscGTHAEVSDVS8713-56-82 06:52:00 Test Item Value Reference Range Interpretation Comments Monocytes (test code = Monocytes) 6.0 2.0-12.0 N [facility] HospitalWgeezaeJDSOBCUSIC0165-12-31 06:52:00 Test Item Value Reference Range Interpretation Comments Eosinophils (test code = 0.1 See_Comment N [A utomated message] The Eosinophils) system which ge nerated this result tra nsmitted reference range : <=4.0. The reference r leatha was not used to int erpret this result as normal/abnormal . [facility] HospitalCjzmjnaSZEMHNYEV4016-29-13 06:52:00 Test Item Value Reference Range Interpretation Comments Phosphorus (test code = Phosphorus) 3.5 2.5-4.5 N [facility] HospitalEfqoubaLYLKFALUY1012-89-70 06:52:00 Test Item Value Reference Range Interpretation Comments AGAP (test code = AGAP) 13.4 10.0-20.0 N [facility] HospitalQiqwggcSXIAWMDNM7273-77-60 06:52:00 Test Item Value Reference Range Interpretation Comments Glucose Lvl (test code = Glucose Lvl) 181 70-99 H [facility] HospitalYtgvltuJYEOJMSWJ8556-39-78 06:52:00 Test Item Value Reference Range Interpretation Comments Creatinine Lvl (test code = Creatinine 0.9 0.5-1.4 N Lvl) [facility] HospitalXajaawlNYQIKXUZM6045-97-39 06:52:00 Test Item Value Reference Range Interpretation Comments BUN (test code = BUN) 17 7-22 N [facility] HospitalBjgtfbrGKGJOXMUV0751-76-41 06:52:00 Test Item Value Reference Range Interpretation Comments Sodium Lvl (test code = Sodium Lvl) 140 135-145 N [facility] HospitalQmlycbpSBITNAVSL6871-00-90 06:52:00 Test Item Value Reference Range Interpretation Comments Chloride Lvl (test code = Chloride Lvl) 105 95-109 N [facility] HospitalHkaikmlPRJJUZYRZ2767-48-51 06:52:00 Test Item Value Reference Range Interpretation Comments Calcium Lvl (test code = Calcium Lvl) 9.7 8.5-10.5 N [facility] HospitalIdvhefuNRGQGKGJG2330-00-30 06:52:00 Test Item Value Reference Range Interpretation Comments Potassium Lvl (test code = Potassium 4.4 3.5-5.1 N Lvl) [facility] HospitalGiyufbaDXCIHXMQR3142-81-61 06:52:00 Test Item Value Reference Range Interpretation Comments CO2 (test code = CO2) 26 24-32 N [facility] HospitalEckezmsMSWIUKJIK7881-50-98 06:52:00 Test Item Value Reference Range Interpretation Comments eGFR (test code = eGFR) 65 [facility] HospitalLpgaoiwJILPZHUBB7862-87-84 06:52:00 Test Item Value Reference Range Interpretation Comments Magnesium Lvl (test code = Magnesium 1.5 1.8-2.4 L Lvl) [facility] HospitalOeuhajcQPLDMSAOHY0291-84-58 06:52:00 Test Item Value Reference Range Interpretation Comments RBC (test code = RBC) 4.85 4.20-5.40 N [facility] HospitalJkovlxaUZFBEHYGOX1617-86-65 06:52:00 Test Item Value Reference Range Interpretation Comments WBC (test code = WBC) 9.2 3.7-10.4 N [facility] HospitalLnlehfiNYFORSTZDD7251-31-08 06:52:00 Test Item Value Reference Range Interpretation Comments Hgb (test code = Hgb) 14.9 12.0-16.0 N [facility] HospitalOsqivfaPVHQJRVJOD9125-06-14 06:52:00 Test Item Value Reference Range Interpretation Comments MCHC (test code = MCHC) 33.3 32.0-36.0 N [facility] HospitalGxptgpjIAJWLSRYVJ6895-57-65 06:52:00 Test Item Value Reference Range Interpretation Comments MCH (test code = MCH) 30.7 pg 27.0-31.0 N [facility] HospitalSfshyluVXVBOOSQXC7083-40-31 06:52:00 Test Item Value Reference Range Interpretation Comments Hct (test code = Hct) 44.9 36.0-48.0 N [facility] HospitalDitozdyWUHCSCSZCX6752-96-93 06:52:00 Test Item Value Reference Range Interpretation Comments MCV (test code = MCV) 92.4 81.0-99.0 N [facility] HospitalSvcosdaHSMEUYUMXD7750-67-88 06:52:00 Test Item Value Reference Range Interpretation Comments RDW (test code = RDW) 14.5 11.5-14.5 N [facility] HospitalJvfgyhhJCIHGLMELG9493-65-15 06:52:00 Test Item Value Reference Range Interpretation Comments Platelet (test code = Platelet) 213 133-450 N [facility] HospitalRlyokxhHMXSWALUPP9643-45-06 06:52:00 Test Item Value Reference Range Interpretation Comments MPV (test code = MPV) 9.5 7.4-10.4 N [facility] HospitalEseofzgIYSOEWBHPR3588-53-91 06:52:00 Test Item Value Reference Range Interpretation Comments Segs-Bands # (test code = Segs-Bands #) 7.7 1.5-8.1 N [facility] HospitalDwyjwrwSPNNYRZOUQ6557-31-39 06:52:00 Test Item Value Reference Range Interpretation Comments Basophils (test code = 0.3 See_Comment N [Aut omated message] The Basophils) system which ge nerated this result tra nsmitted reference range : <=1.0. The reference r leatha was not used to int erpret this result as normal/abnormal . [facility] HospitalMspynooZTJKUGWTBK7314-93-25 06:52:00 Test Item Value Reference Range Interpretation Comments Monocytes # (test code 0.6 See_Comment N [Aut omated message] The = Monocytes #) system which generated this result tra nsmitted reference range : <=0.8. The reference r leatha was not used to int erpret this result as normal/abnormal . [facility] HospitalDfgdyulRCDZASTWSN9038-49-07 06:52:00 Test Item Value Reference Range Interpretation Comments Lymphocytes # (test code = Lymphocytes 0.9 1.0-5.5 L #) [facility] HospitalIdibpfxPSPIPTMXJF2958-52-95 06:52:00 Test Item Value Reference Range Interpretation Comments Lymphocytes (test code = Lymphocytes) 9.5 20.0-40.0 L [facility] HospitalFqaxgxvUZKNUUXWQF3794-14-96 06:52:00 Test Item Value Reference Range Interpretation Comments Segs (test code = Segs) 84.1 45.0-75.0 H [facility] HospitalSymdvfjQFZRFJJMOG7714-64-26 06:52:00 Test Item Value Reference Range Interpretation Comments Monocytes (test code = Monocytes) 6.0 2.0-12.0 N [facility] HospitalTvusqcqNELAPUDLAP7419-85-00 06:52:00 Test Item Value Reference Range Interpretation Comments Eosinophils (test code = 0.1 See_Comment N [A utomated message] The Eosinophils) system which ge nerated this result tra nsmitted reference range : <=4.0. The reference r leatha was not used to int erpret this result as normal/abnormal . [facility] HospitalLtfxlusPWKYNDMYD2698-42-90 06:52:00 Test Item Value Reference Range Interpretation Comments Phosphorus (test code = Phosphorus) 3.5 2.5-4.5 N [facility] HospitalTxmdyklVKMJYMQBX9172-14-17 06:52:00 Test Item Value Reference Range Interpretation Comments AGAP (test code = AGAP) 13.4 10.0-20.0 N [facility] HospitalMscokdcPGFENOAXU2899-53-92 06:52:00 Test Item Value Reference Range Interpretation Comments Glucose Lvl (test code = Glucose Lvl) 181 70-99 H [facility] HospitalMqiygkrAJMLPPQZZ6703-68-99 06:52:00 Test Item Value Reference Range Interpretation Comments Creatinine Lvl (test code = Creatinine 0.9 0.5-1.4 N Lvl) [facility] HospitalDyhvjryFLGDADEEG0761-34-49 06:52:00 Test Item Value Reference Range Interpretation Comments BUN (test code = BUN) 17 7-22 N [facility] HospitalAwskgfnNPDNFZXQY6017-57-67 06:52:00 Test Item Value Reference Range Interpretation Comments Sodium Lvl (test code = Sodium Lvl) 140 135-145 N [facility] HospitalWpvuuwrGEMINIKJA0732-04-89 06:52:00 Test Item Value Reference Range Interpretation Comments Chloride Lvl (test code = Chloride Lvl) 105 95-109 N [facility] HospitalKqtirerFUOCFCUMS2218-22-04 06:52:00 Test Item Value Reference Range Interpretation Comments Calcium Lvl (test code = Calcium Lvl) 9.7 8.5-10.5 N [facility] HospitalGcwlhshUAIEFKJQO5182-95-40 06:52:00 Test Item Value Reference Range Interpretation Comments Potassium Lvl (test code = Potassium 4.4 3.5-5.1 N Lvl) [facility] HospitalIewvlbeVMFQMXIAP3730-08-49 06:52:00 Test Item Value Reference Range Interpretation Comments CO2 (test code = CO2) 26 24-32 N [facility] HospitalQpegbwmLKUEMQIWN0873-86-55 06:52:00 Test Item Value Reference Range Interpretation Comments eGFR (test code = eGFR) 65 [facility] HospitalKaqlyriMAXNSFSSW0112-41-31 06:52:00 Test Item Value Reference Range Interpretation Comments Magnesium Lvl (test code = Magnesium 1.5 1.8-2.4 L Lvl) [facility] HospitalYomjcwmNJDUNFLWBI7414-49-73 06:52:00 Test Item Value Reference Range Interpretation Comments RBC (test code = RBC) 4.85 4.20-5.40 N [facility] HospitalJqmymanBDFXIFXNAS4789-23-58 06:52:00 Test Item Value Reference Range Interpretation Comments WBC (test code = WBC) 9.2 3.7-10.4 N [facility] HospitalUrusvyuWGLHJOAENN3395-77-77 06:52:00 Test Item Value Reference Range Interpretation Comments Hgb (test code = Hgb) 14.9 12.0-16.0 N [facility] HospitalLyxycbxFJUPXIHKBY4762-58-43 06:52:00 Test Item Value Reference Range Interpretation Comments MCHC (test code = MCHC) 33.3 32.0-36.0 N [facility] HospitalIaiozlhDARZHWUOHM7947-29-90 06:52:00 Test Item Value Reference Range Interpretation Comments MCH (test code = MCH) 30.7 pg 27.0-31.0 N [facility] HospitalYsswykdIGNPPOUGFD1155-61-98 06:52:00 Test Item Value Reference Range Interpretation Comments Hct (test code = Hct) 44.9 36.0-48.0 N [facility] HospitalMohxuusQTNVBMEDOV8453-47-68 06:52:00 Test Item Value Reference Range Interpretation Comments MCV (test code = MCV) 92.4 81.0-99.0 N [facility] HospitalRkywjxzLZOTRALYBL8758-92-92 06:52:00 Test Item Value Reference Range Interpretation Comments RDW (test code = RDW) 14.5 11.5-14.5 N [facility] HospitalWgoommdMNBRSMHFNU6735-92-85 06:52:00 Test Item Value Reference Range Interpretation Comments Platelet (test code = Platelet) 213 133-450 N [facility] HospitalRqxwlpyYAHLVESEPM5269-63-77 06:52:00 Test Item Value Reference Range Interpretation Comments MPV (test code = MPV) 9.5 7.4-10.4 N [facility] HospitalIrznxmiDXTFYGMEXI9838-89-65 06:52:00 Test Item Value Reference Range Interpretation Comments Segs-Bands # (test code = Segs-Bands #) 7.7 1.5-8.1 N [facility] HospitalKxzrpxiDBFNHJJPEV0547-32-68 06:52:00 Test Item Value Reference Range Interpretation Comments Basophils (test code = 0.3 See_Comment N [Aut omated message] The Basophils) system which ge nerated this result tra nsmitted reference range : <=1.0. The reference r leatha was not used to int erpret this result as normal/abnormal . [facility] HospitalPovnzfyLZFRRTMQUZ9728-41-75 06:52:00 Test Item Value Reference Range Interpretation Comments Monocytes # (test code 0.6 See_Comment N [Aut omated message] The = Monocytes #) system which generated this result tra nsmitted reference range : <=0.8. The reference r leatha was not used to int erpret this result as normal/abnormal . [facility] HospitalPxsqdazVWZPFIRZCY8968-06-79 06:52:00 Test Item Value Reference Range Interpretation Comments Lymphocytes # (test code = Lymphocytes 0.9 1.0-5.5 L #) [facility] HospitalGrpxgcjBOYHEINFVR6777-55-51 06:52:00 Test Item Value Reference Range Interpretation Comments Lymphocytes (test code = Lymphocytes) 9.5 20.0-40.0 L [facility] HospitalCsjwfxfMXHVWFZNOJ9401-64-68 06:52:00 Test Item Value Reference Range Interpretation Comments Segs (test code = Segs) 84.1 45.0-75.0 H [facility] HospitalTrctfigKWGJPILTUN5307-96-69 06:52:00 Test Item Value Reference Range Interpretation Comments Monocytes (test code = Monocytes) 6.0 2.0-12.0 N [facility] HospitalHvcepkvRXUELQMBMD8240-34-63 06:52:00 Test Item Value Reference Range Interpretation Comments Eosinophils (test code = 0.1 See_Comment N [A utomated message] The Eosinophils) system which ge nerated this result tra nsmitted reference range : <=4.0. The reference r leatha was not used to int erpret this result as normal/abnormal . [facility] HospitalFwunyjvINYPUDBZQ1601-77-20 06:52:00 Test Item Value Reference Range Interpretation Comments Phosphorus (test code = Phosphorus) 3.5 2.5-4.5 N [facility] HospitalDbzovtpQFLERJISI9202-10-06 06:52:00 Test Item Value Reference Range Interpretation Comments AGAP (test code = AGAP) 13.4 10.0-20.0 N [facility] HospitalMnshvguAGZRYVMLC1834-00-53 06:52:00 Test Item Value Reference Range Interpretation Comments Glucose Lvl (test code = Glucose Lvl) 181 70-99 H [facility] HospitalJckgilfSTVRMXLEC9589-18-22 06:52:00 Test Item Value Reference Range Interpretation Comments Creatinine Lvl (test code = Creatinine 0.9 0.5-1.4 N Lvl) [facility] HospitalNyskkcbQZHJYAUHM7309-33-81 06:52:00 Test Item Value Reference Range Interpretation Comments BUN (test code = BUN) 17 7-22 N [facility] HospitalTgbjkxcJGTPQYOFJ8784-41-51 06:52:00 Test Item Value Reference Range Interpretation Comments Sodium Lvl (test code = Sodium Lvl) 140 135-145 N [facility] HospitalSzeqerqCVTUOEJSN5395-59-33 06:52:00 Test Item Value Reference Range Interpretation Comments Chloride Lvl (test code = Chloride Lvl) 105 95-109 N [facility] HospitalQyzmljdNSFAPXVQL5716-91-53 06:52:00 Test Item Value Reference Range Interpretation Comments Calcium Lvl (test code = Calcium Lvl) 9.7 8.5-10.5 N [facility] HospitalUavphzqGFQDBDJQY5063-26-33 06:52:00 Test Item Value Reference Range Interpretation Comments Potassium Lvl (test code = Potassium 4.4 3.5-5.1 N Lvl) [facility] HospitalKlzdtixKPLXXJNWD0748-71-26 06:52:00 Test Item Value Reference Range Interpretation Comments CO2 (test code = CO2) 26 24-32 N [facility] HospitalKupvnfdDSKRBSAFQ7480-43-28 06:52:00 Test Item Value Reference Range Interpretation Comments eGFR (test code = eGFR) 65 [facility] HospitalHvkcztfKDITNOTOO0778-77-65 06:52:00 Test Item Value Reference Range Interpretation Comments Magnesium Lvl (test code = Magnesium 1.5 1.8-2.4 L Lvl) [facility] HospitalUdddiucEDWCWJMSDK4302-19-70 06:52:00 Test Item Value Reference Range Interpretation Comments RBC (test code = RBC) 4.85 4.20-5.40 N [facility] HospitalInoroxmMQOLQFREWQ8438-41-65 06:52:00 Test Item Value Reference Range Interpretation Comments WBC (test code = WBC) 9.2 3.7-10.4 N [facility] [facility]kHIXEQRZGHC1429-92-43 06:52:00 Test Item Value Reference Range Interpretation Comments Hgb (test code = Hgb) 14.9 12.0-16.0 N [facility] HospitalOhetvkjFLZYNFPUZX8205-51-69 06:52:00 Test Item Value Reference Range Interpretation Comments MCHC (test code = MCHC) 33.3 32.0-36.0 N [facility] HospitalGagceapBGECDBMAKN4685-57-64 06:52:00 Test Item Value Reference Range Interpretation Comments MCH (test code = MCH) 30.7 pg 27.0-31.0 N [facility] HospitalKcrlvvfUFKXHQHPUQ1276-21-30 06:52:00 Test Item Value Reference Range Interpretation Comments Hct (test code = Hct) 44.9 36.0-48.0 N [facility] HospitalRqhemmoAUMIVVYYAC8103-94-00 06:52:00 Test Item Value Reference Range Interpretation Comments MCV (test code = MCV) 92.4 81.0-99.0 N [facility] HospitalRquxhmaCSYOPSHPBO6700-13-78 06:52:00 Test Item Value Reference Range Interpretation Comments RDW (test code = RDW) 14.5 11.5-14.5 N [facility] HospitalFhasgcnTFJTIRDQEO9431-32-79 06:52:00 Test Item Value Reference Range Interpretation Comments Platelet (test code = Platelet) 213 133-450 N [facility] HospitalWfzaomwQRKGEHGBIF9840-06-14 06:52:00 Test Item Value Reference Range Interpretation Comments MPV (test code = MPV) 9.5 7.4-10.4 N [facility] HospitalMomempiWVIGTHVQUX5064-59-48 06:52:00 Test Item Value Reference Range Interpretation Comments Segs-Bands # (test code = Segs-Bands #) 7.7 1.5-8.1 N [facility] HospitalHzgsvnkQKAGPHOMZJ8154-34-21 06:52:00 Test Item Value Reference Range Interpretation Comments Basophils (test code = 0.3 See_Comment N [Aut omated message] The Basophils) system which ge nerated this result tra nsmitted reference range : <=1.0. The reference r leatha was not used to int erpret this result as normal/abnormal . [facility] HospitalUpojegiDLPNFNVNDZ8368-23-39 06:52:00 Test Item Value Reference Range Interpretation Comments Monocytes # (test code 0.6 See_Comment N [Aut omated message] The = Monocytes #) system which generated this result tra nsmitted reference range : <=0.8. The reference r leatha was not used to int erpret this result as normal/abnormal . [facility] HospitalUhhndgdTHTMYXFGIG3518-03-95 06:52:00 Test Item Value Reference Range Interpretation Comments Lymphocytes # (test code = Lymphocytes 0.9 1.0-5.5 L #) [facility] HospitalBvtehcoNOHAHRYAWO8693-12-43 06:52:00 Test Item Value Reference Range Interpretation Comments Lymphocytes (test code = Lymphocytes) 9.5 20.0-40.0 L [facility] HospitalDiavhkkVTUUFPVUKJ3716-54-05 06:52:00 Test Item Value Reference Range Interpretation Comments Segs (test code = Segs) 84.1 45.0-75.0 H [facility] HospitalWkbxojzYTMZEIWEFT1918-58-03 06:52:00 Test Item Value Reference Range Interpretation Comments Monocytes (test code = Monocytes) 6.0 2.0-12.0 N [facility] HospitalYwdffkuHARLVSGDWR6045-06-20 06:52:00 Test Item Value Reference Range Interpretation Comments Eosinophils (test code = 0.1 See_Comment N [A utomated message] The Eosinophils) system which ge nerated this result tra nsmitted reference range : <=4.0. The reference r leatha was not used to int erpret this result as normal/abnormal . [facility]YqmzxkjGYOSUCXSI8280-22-87 06:52:00 Test Item Value Reference Range Interpretation Comments Phosphorus (test code = Phosphorus) 3.5 2.5-4.5 N [facility] HospitalRshhjklUQPMEGVVW0692-84-43 06:52:00 Test Item Value Reference Range Interpretation Comments AGAP (test code = AGAP) 13.4 10.0-20.0 N [facility] HospitalPgahhirLZRFKTVHJ0979-04-78 06:52:00 Test Item Value Reference Range Interpretation Comments Glucose Lvl (test code = Glucose Lvl) 181 70-99 H [facility] HospitalTnzyrraFFUQCIAYD1436-82-43 06:52:00 Test Item Value Reference Range Interpretation Comments Creatinine Lvl (test code = Creatinine 0.9 0.5-1.4 N Lvl) [facility] HospitalLcjtjuvVTLEWWSZT0287-90-54 06:52:00 Test Item Value Reference Range Interpretation Comments BUN (test code = BUN) 17 7-22 N [facility] HospitalVmezmqyXEEJBXCMF3041-38-79 06:52:00 Test Item Value Reference Range Interpretation Comments Sodium Lvl (test code = Sodium Lvl) 140 135-145 N [facility] HospitalYbnoksxXRILUHLDX2817-30-07 06:52:00 Test Item Value Reference Range Interpretation Comments Chloride Lvl (test code = Chloride Lvl) 105 95-109 N [facility] HospitalQrydwpeABCNMPDEA0094-64-81 06:52:00 Test Item Value Reference Range Interpretation Comments Calcium Lvl (test code = Calcium Lvl) 9.7 8.5-10.5 N [facility] HospitalDrbduwiHLWANWZYU7709-51-43 06:52:00 Test Item Value Reference Range Interpretation Comments Potassium Lvl (test code = Potassium 4.4 3.5-5.1 N Lvl) [facility] HospitalMpppureXXJCEHTSG8199-34-51 06:52:00 Test Item Value Reference Range Interpretation Comments CO2 (test code = CO2) 26 24-32 N [facility] HospitalAiqzwrmYOMJUCUWH2393-56-88 06:52:00 Test Item Value Reference Range Interpretation Comments eGFR (test code = eGFR) 65 [facility] HospitalFfptqeuSNTXIQNEB7189-63-91 06:52:00 Test Item Value Reference Range Interpretation Comments Magnesium Lvl (test code = Magnesium 1.5 1.8-2.4 L Lvl) [facility] HospitalInwjcpkMGLKBQVOHV0647-90-38 06:52:00 Test Item Value Reference Range Interpretation Comments RBC (test code = RBC) 4.85 4.20-5.40 N [facility] HospitalOpebncmSKNCWWCMZU0989-02-75 06:52:00 Test Item Value Reference Range Interpretation Comments WBC (test code = WBC) 9.2 3.7-10.4 N [facility] HospitalUdxgufgVRSMYVBMVN6536-60-58 06:52:00 Test Item Value Reference Range Interpretation Comments Hgb (test code = Hgb) 14.9 12.0-16.0 N [facility] HospitalWkirdszCQZHNSQSOL7890-83-11 06:52:00 Test Item Value Reference Range Interpretation Comments MCHC (test code = MCHC) 33.3 32.0-36.0 N [facility] HospitalXckrjkbZYRXHLYCRV3043-76-82 06:52:00 Test Item Value Reference Range Interpretation Comments MCH (test code = MCH) 30.7 pg 27.0-31.0 N [facility] HospitalKcbplzyJQYMRCRFUH9761-80-59 06:52:00 Test Item Value Reference Range Interpretation Comments Hct (test code = Hct) 44.9 36.0-48.0 N [facility] HospitalAguweecOBASIZKLJM1741-81-72 06:52:00 Test Item Value Reference Range Interpretation Comments MCV (test code = MCV) 92.4 81.0-99.0 N [facility] HospitalMwxyntsZOOHQCHMWQ9700-83-43 06:52:00 Test Item Value Reference Range Interpretation Comments RDW (test code = RDW) 14.5 11.5-14.5 N [facility] HospitalSzblqofDGBLIVYWUY2348-84-03 06:52:00 Test Item Value Reference Range Interpretation Comments Platelet (test code = Platelet) 213 133-450 N [facility] HospitalBwidomkINFEFEAGNN7247-32-63 06:52:00 Test Item Value Reference Range Interpretation Comments MPV (test code = MPV) 9.5 7.4-10.4 N [facility] HospitalFmqzpwtRIABCCPQFI0196-85-08 06:52:00 Test Item Value Reference Range Interpretation Comments Segs-Bands # (test code = Segs-Bands #) 7.7 1.5-8.1 N [facility] HospitalQesxtslURSJIKPTJF3856-87-70 06:52:00 Test Item Value Reference Range Interpretation Comments Basophils (test code = 0.3 See_Comment N [Aut omated message] The Basophils) system which ge nerated this result tra nsmitted reference range : <=1.0. The reference r leatha was not used to int erpret this result as normal/abnormal . [facility] HospitalGjcqrobVDJTMAABOE4143-92-39 06:52:00 Test Item Value Reference Range Interpretation Comments Monocytes # (test code 0.6 See_Comment N [Aut omated message] The = Monocytes #) system which generated this result tra nsmitted reference range : <=0.8. The reference r leatha was not used to int erpret this result as normal/abnormal . [facility] HospitalTkxznbeREBBHFSFYQ0529-68-76 06:52:00 Test Item Value Reference Range Interpretation Comments Lymphocytes # (test code = Lymphocytes 0.9 1.0-5.5 L #) [facility] HospitalKadsycbELMULBGQHS7008-77-94 06:52:00 Test Item Value Reference Range Interpretation Comments Lymphocytes (test code = Lymphocytes) 9.5 20.0-40.0 L [facility] HospitalEksskizHOQLVUFAUX4897-05-76 06:52:00 Test Item Value Reference Range Interpretation Comments Segs (test code = Segs) 84.1 45.0-75.0 H [facility] HospitalVvrmmecKFTIFNCXVH1021-65-44 06:52:00 Test Item Value Reference Range Interpretation Comments Monocytes (test code = Monocytes) 6.0 2.0-12.0 N [facility] HospitalEvechilIQNQEEWVBN6558-11-96 06:52:00 Test Item Value Reference Range Interpretation Comments Eosinophils (test code = 0.1 See_Comment N [A utomated message] The Eosinophils) system which ge nerated this result tra nsmitted reference range : <=4.0. The reference r leatha was not used to int erpret this result as normal/abnormal . [facility] HospitalRhnhhlfNGOLGTHRU9135-14-52 06:52:00 Test Item Value Reference Range Interpretation Comments Phosphorus (test code = Phosphorus) 3.5 2.5-4.5 N [facility] HospitalHanjyykEEXMEFJHN7883-69-00 06:52:00 Test Item Value Reference Range Interpretation Comments AGAP (test code = AGAP) 13.4 10.0-20.0 N [facility] HospitalUdwpdtuEQTMVRTQT8707-57-14 06:52:00 Test Item Value Reference Range Interpretation Comments Glucose Lvl (test code = Glucose Lvl) 181 70-99 H [facility] HospitalTouksjbYZQVXRXGI5051-38-91 06:52:00 Test Item Value Reference Range Interpretation Comments Creatinine Lvl (test code = Creatinine 0.9 0.5-1.4 N Lvl) [facility] HospitalYnwyalmHIJNVWTUR1305-38-68 06:52:00 Test Item Value Reference Range Interpretation Comments BUN (test code = BUN) 17 7-22 N [facility] HospitalZnqcltnQSKTFERVR5471-16-47 06:52:00 Test Item Value Reference Range Interpretation Comments Sodium Lvl (test code = Sodium Lvl) 140 135-145 N [facility] HospitalPqzbvdmQJKKKFUEC8293-30-41 06:52:00 Test Item Value Reference Range Interpretation Comments Chloride Lvl (test code = Chloride Lvl) 105 95-109 N [facility] HospitalWcscqaoBPRCIFRCY8495-37-63 06:52:00 Test Item Value Reference Range Interpretation Comments Calcium Lvl (test code = Calcium Lvl) 9.7 8.5-10.5 N [facility] HospitalAbxcivwWYWGFOKMK2679-88-17 06:52:00 Test Item Value Reference Range Interpretation Comments Potassium Lvl (test code = Potassium 4.4 3.5-5.1 N Lvl) [facility] HospitalRtiiymwPHLSVSGED4025-92-53 06:52:00 Test Item Value Reference Range Interpretation Comments CO2 (test code = CO2) 26 24-32 N [facility] HospitalRihoaqpHGTGQTVVP7305-86-75 06:52:00 Test Item Value Reference Range Interpretation Comments eGFR (test code = eGFR) 65 [facility] HospitalEdhbbbeANPJSIMZC0848-90-11 06:52:00 Test Item Value Reference Range Interpretation Comments Magnesium Lvl (test code = Magnesium 1.5 1.8-2.4 L Lvl) [facility] HospitalFozksebIIVKRGSKYM4060-32-41 06:52:00 Test Item Value Reference Range Interpretation Comments RBC (test code = RBC) 4.85 4.20-5.40 N [facility] HospitalArmgmzxQITNKDPUZK3902-60-34 06:52:00 Test Item Value Reference Range Interpretation Comments WBC (test code = WBC) 9.2 3.7-10.4 N [facility] HospitalExbhcqjOTBJUAKQHJ2803-06-29 06:52:00 Test Item Value Reference Range Interpretation Comments Hgb (test code = Hgb) 14.9 12.0-16.0 N [facility] HospitalSdkdwheYMSGELWBUL2697-28-19 06:52:00 Test Item Value Reference Range Interpretation Comments MCHC (test code = MCHC) 33.3 32.0-36.0 N [facility] HospitalHxkezyhVKJWWBVNQY8886-68-30 06:52:00 Test Item Value Reference Range Interpretation Comments MCH (test code = MCH) 30.7 pg 27.0-31.0 N [facility] HospitalOsijekhVOUDKIJZSV7071-86-92 06:52:00 Test Item Value Reference Range Interpretation Comments Hct (test code = Hct) 44.9 36.0-48.0 N [facility] HospitalSrcskwxZBDBMXVUVL7663-04-49 06:52:00 Test Item Value Reference Range Interpretation Comments MCV (test code = MCV) 92.4 81.0-99.0 N [facility] HospitalZthuavzFJRYVYNVHV7288-08-71 06:52:00 Test Item Value Reference Range Interpretation Comments RDW (test code = RDW) 14.5 11.5-14.5 N [facility] HospitalMcarnhzFGDCWVQGDM2103-63-50 06:52:00 Test Item Value Reference Range Interpretation Comments Platelet (test code = Platelet) 213 133-450 N [facility] HospitalMgrfkzpJYOUDHTCVQ1309-23-55 06:52:00 Test Item Value Reference Range Interpretation Comments MPV (test code = MPV) 9.5 7.4-10.4 N [facility] HospitalLvoyodmHZXSLBFQMS9898-68-89 06:52:00 Test Item Value Reference Range Interpretation Comments Segs-Bands # (test code = Segs-Bands #) 7.7 1.5-8.1 N [facility] HospitalWyqfaujLUPZJQMBIM4482-92-41 06:52:00 Test Item Value Reference Range Interpretation Comments Basophils (test code = 0.3 See_Comment N [Aut omated message] The Basophils) system which ge nerated this result tra nsmitted reference range : <=1.0. The reference r leatha was not used to int erpret this result as normal/abnormal . [facility] HospitalFgqqhbdDSKLIMPFSK8105-57-36 06:52:00 Test Item Value Reference Range Interpretation Comments Monocytes # (test code 0.6 See_Comment N [Aut omated message] The = Monocytes #) system which generated this result tra nsmitted reference range : <=0.8. The reference r leatha was not used to int erpret this result as normal/abnormal . [facility] HospitalIokemmwCPVFMGBEYO2156-52-01 06:52:00 Test Item Value Reference Range Interpretation Comments Lymphocytes # (test code = Lymphocytes 0.9 1.0-5.5 L #) [facility] HospitalFutdetnBDGGLEMUQL8650-44-36 06:52:00 Test Item Value Reference Range Interpretation Comments Lymphocytes (test code = Lymphocytes) 9.5 20.0-40.0 L [facility] HospitalBwesvoePWHYFORKTC8964-66-32 06:52:00 Test Item Value Reference Range Interpretation Comments Segs (test code = Segs) 84.1 45.0-75.0 H [facility] HospitalTuvjsyhGLAIKBOWUI4061-79-52 06:52:00 Test Item Value Reference Range Interpretation Comments Monocytes (test code = Monocytes) 6.0 2.0-12.0 N [facility] HospitalPstgbgfJLUSXTZMJN6758-77-88 06:52:00 Test Item Value Reference Range Interpretation Comments Eosinophils (test code = 0.1 See_Comment N [A utomated message] The Eosinophils) system which ge nerated this result tra nsmitted reference range : <=4.0. The reference r leatha was not used to int erpret this result as normal/abnormal . [facility] HospitalJnafzudXXTVSKKLK8092-57-19 06:52:00 Test Item Value Reference Range Interpretation Comments Phosphorus (test code = Phosphorus) 3.5 2.5-4.5 N [facility] HospitalEtwieaaKCDVRIQPW8145-66-25 06:52:00 Test Item Value Reference Range Interpretation Comments AGAP (test code = AGAP) 13.4 10.0-20.0 N [facility] HospitalBvrcunoNODERKBIW7086-45-55 06:52:00 Test Item Value Reference Range Interpretation Comments Glucose Lvl (test code = Glucose Lvl) 181 70-99 H [facility] HospitalTakzxvwEZOSCEMWR0002-69-93 06:52:00 Test Item Value Reference Range Interpretation Comments Creatinine Lvl (test code = Creatinine 0.9 0.5-1.4 N Lvl) [facility] HospitalZzdqdeuVVZTBQQTC8839-10-62 06:52:00 Test Item Value Reference Range Interpretation Comments BUN (test code = BUN) 17 7-22 N [facility] HospitalItikdddXTLYVRKAA9855-06-37 06:52:00 Test Item Value Reference Range Interpretation Comments Sodium Lvl (test code = Sodium Lvl) 140 135-145 N [facility] HospitalPiqlhrqBJGUHCNLP3843-34-67 06:52:00 Test Item Value Reference Range Interpretation Comments Chloride Lvl (test code = Chloride Lvl) 105 95-109 N [facility] HospitalQrkzzpkFGVHDNTAS9060-47-84 06:52:00 Test Item Value Reference Range Interpretation Comments Calcium Lvl (test code = Calcium Lvl) 9.7 8.5-10.5 N [facility] HospitalFvssxgrCIWMHNJJL0281-85-85 06:52:00 Test Item Value Reference Range Interpretation Comments Potassium Lvl (test code = Potassium 4.4 3.5-5.1 N Lvl) [facility] HospitalNudlstcLKJAXVLPN9380-46-02 06:52:00 Test Item Value Reference Range Interpretation Comments CO2 (test code = CO2) 26 24-32 N [facility] HospitalJusgbkwRBWUUJTJV4327-81-92 06:52:00 Test Item Value Reference Range Interpretation Comments eGFR (test code = eGFR) 65 [facility] HospitalOnbhiahFSPTOUSRF5662-64-58 06:52:00 Test Item Value Reference Range Interpretation Comments Magnesium Lvl (test code = Magnesium 1.5 1.8-2.4 L Lvl) [facility] HospitalUenmdxmWXWECJKLTW4266-29-02 06:52:00 Test Item Value Reference Range Interpretation Comments RBC (test code = RBC) 4.85 4.20-5.40 N [facility] HospitalEkpmeekPFSRCGMVMI4131-36-69 06:52:00 Test Item Value Reference Range Interpretation Comments WBC (test code = WBC) 9.2 3.7-10.4 N [facility] HospitalVknljjmKWNPGPZYKC6005-02-78 06:52:00 Test Item Value Reference Range Interpretation Comments Hgb (test code = Hgb) 14.9 12.0-16.0 N [facility] HospitalFxtuyxtVJRNLSABGD6093-89-95 06:52:00 Test Item Value Reference Range Interpretation Comments MCHC (test code = MCHC) 33.3 32.0-36.0 N [facility] HospitalPqicjnhKYWDHPDMEV5168-68-71 06:52:00 Test Item Value Reference Range Interpretation Comments MCH (test code = MCH) 30.7 pg 27.0-31.0 N [facility] HospitalGclwndkMWEYTFRNHX5073-28-33 06:52:00 Test Item Value Reference Range Interpretation Comments Hct (test code = Hct) 44.9 36.0-48.0 N [facility] HospitalUxlzwnoYLDMUVYBNW4422-96-95 06:52:00 Test Item Value Reference Range Interpretation Comments MCV (test code = MCV) 92.4 81.0-99.0 N [facility] HospitalTguxaenRJDHUMQWIZ3144-73-43 06:52:00 Test Item Value Reference Range Interpretation Comments RDW (test code = RDW) 14.5 11.5-14.5 N [facility] HospitalNqdijedURINXVHHZZ6141-72-25 06:52:00 Test Item Value Reference Range Interpretation Comments Platelet (test code = Platelet) 213 133-450 N [facility] HospitalIopsmysJOFCTHEHCA1952-13-66 06:52:00 Test Item Value Reference Range Interpretation Comments MPV (test code = MPV) 9.5 7.4-10.4 N [facility] HospitalYppjzthCQEHBRYHVJ6366-73-46 06:52:00 Test Item Value Reference Range Interpretation Comments Segs-Bands # (test code = Segs-Bands #) 7.7 1.5-8.1 N [facility] HospitalFctjgbkSGACGXCQAM9868-18-45 06:52:00 Test Item Value Reference Range Interpretation Comments Basophils (test code = 0.3 See_Comment N [Aut omated message] The Basophils) system which ge nerated this result tra nsmitted reference range : <=1.0. The reference r leatha was not used to int erpret this result as normal/abnormal . [facility] HospitalBqlejhrZZOWQJLWIX7481-15-86 06:52:00 Test Item Value Reference Range Interpretation Comments Monocytes # (test code 0.6 See_Comment N [Aut omated message] The = Monocytes #) system which generated this result tra nsmitted reference range : <=0.8. The reference r leatha was not used to int erpret this result as normal/abnormal . [facility] HospitalQuutpjlLGSZIQPEJF3178-02-69 06:52:00 Test Item Value Reference Range Interpretation Comments Lymphocytes # (test code = Lymphocytes 0.9 1.0-5.5 L #) [facility] HospitalItzvfxiDASFRSZOEK2480-27-57 06:52:00 Test Item Value Reference Range Interpretation Comments Lymphocytes (test code = Lymphocytes) 9.5 20.0-40.0 L [facility] HospitalEswruijHUERNJBFSD5074-56-46 06:52:00 Test Item Value Reference Range Interpretation Comments Segs (test code = Segs) 84.1 45.0-75.0 H [facility] HospitalWjmqxflNOJJZEDDFY0730-46-81 06:52:00 Test Item Value Reference Range Interpretation Comments Monocytes (test code = Monocytes) 6.0 2.0-12.0 N [facility] HospitalOsvowvdVWMRNCDEBW8945-27-80 06:52:00 Test Item Value Reference Range Interpretation Comments Eosinophils (test code = 0.1 See_Comment N [A utomated message] The Eosinophils) system which ge nerated this result tra nsmitted reference range : <=4.0. The reference r leatha was not used to int erpret this result as normal/abnormal . [facility] HospitalTwpcykpGECXNYPDZ5674-79-29 06:52:00 Test Item Value Reference Range Interpretation Comments Phosphorus (test code = Phosphorus) 3.5 2.5-4.5 N [facility] HospitalVfjgltzIOBHIBRNL5954-86-50 06:52:00 Test Item Value Reference Range Interpretation Comments AGAP (test code = AGAP) 13.4 10.0-20.0 N [facility] HospitalHdoyctpVXFOOYDPD1186-47-83 06:52:00 Test Item Value Reference Range Interpretation Comments Glucose Lvl (test code = Glucose Lvl) 181 70-99 H [facility] HospitalOceogprLRMHGDXRX6933-82-52 06:52:00 Test Item Value Reference Range Interpretation Comments Creatinine Lvl (test code = Creatinine 0.9 0.5-1.4 N Lvl) [facility] HospitalOxddhzjQTEEFHWJL0629-21-37 06:52:00 Test Item Value Reference Range Interpretation Comments BUN (test code = BUN) 17 7-22 N [facility] HospitalOqihwxiTVWUNEDAO0440-31-07 06:52:00 Test Item Value Reference Range Interpretation Comments Sodium Lvl (test code = Sodium Lvl) 140 135-145 N [facility] HospitalGvzkgtyAWJUVZEOK5349-17-04 06:52:00 Test Item Value Reference Range Interpretation Comments Chloride Lvl (test code = Chloride Lvl) 105 95-109 N [facility] HospitalOxjmuprLAMNFLPFN4706-30-89 06:52:00 Test Item Value Reference Range Interpretation Comments Calcium Lvl (test code = Calcium Lvl) 9.7 8.5-10.5 N [facility] HospitalWumaskkCPPTHSRPP8971-02-88 06:52:00 Test Item Value Reference Range Interpretation Comments Potassium Lvl (test code = Potassium 4.4 3.5-5.1 N Lvl) [facility] HospitalZuvxghcZEBUAKJOU5751-14-78 06:52:00 Test Item Value Reference Range Interpretation Comments CO2 (test code = CO2) 26 24-32 N [facility] HospitalVdtcwpjPDDXOKCYV5181-63-00 06:52:00 Test Item Value Reference Range Interpretation Comments eGFR (test code = eGFR) 65 [facility] HospitalSoendnnHCRDEAXJK9290-43-55 06:52:00 Test Item Value Reference Range Interpretation Comments Magnesium Lvl (test code = Magnesium 1.5 1.8-2.4 L Lvl) [facility] HospitalHtompinTNNQZIZXGA7512-13-24 06:52:00 Test Item Value Reference Range Interpretation Comments RBC (test code = RBC) 4.85 4.20-5.40 N [facility] HospitalCxznutfMIGUTUPJGW9678-23-15 06:52:00 Test Item Value Reference Range Interpretation Comments WBC (test code = WBC) 9.2 3.7-10.4 N [facility] HospitalVfnaujfAWQEBLIDBG3580-14-23 06:52:00 Test Item Value Reference Range Interpretation Comments Hgb (test code = Hgb) 14.9 12.0-16.0 N [facility] HospitalJaealinQYIZGAGAQB7119-70-67 06:52:00 Test Item Value Reference Range Interpretation Comments MCHC (test code = MCHC) 33.3 32.0-36.0 N [facility] HospitalGmjrjtsFKWEQHTYLB3752-57-53 06:52:00 Test Item Value Reference Range Interpretation Comments MCH (test code = MCH) 30.7 pg 27.0-31.0 N [facility] HospitalGoccrutKRGONABZVE1520-45-18 06:52:00 Test Item Value Reference Range Interpretation Comments Hct (test code = Hct) 44.9 36.0-48.0 N [facility] HospitalMrjpkdrIPOAGJNCGG1261-31-80 06:52:00 Test Item Value Reference Range Interpretation Comments MCV (test code = MCV) 92.4 81.0-99.0 N [facility] HospitalAcnxlrgQBOMOSEVDC4850-42-98 06:52:00 Test Item Value Reference Range Interpretation Comments RDW (test code = RDW) 14.5 11.5-14.5 N [facility] HospitalRkchvtvPGJLTGJQIN1412-46-88 06:52:00 Test Item Value Reference Range Interpretation Comments Platelet (test code = Platelet) 213 133-450 N [facility] HospitalKvlblgyKBYZCUEBEX7096-25-04 06:52:00 Test Item Value Reference Range Interpretation Comments MPV (test code = MPV) 9.5 7.4-10.4 N [facility] HospitalYdgefvlIWMFBAMUUY1696-45-94 06:52:00 Test Item Value Reference Range Interpretation Comments Segs-Bands # (test code = Segs-Bands #) 7.7 1.5-8.1 N [facility] [facility]smmspqHWFFAGRVPO0487-98-37 06:52:00 Test Item Value Reference Range Interpretation Comments Basophils (test code = 0.3 See_Comment N [Aut omated message] The Basophils) system which ge nerated this result tra nsmitted reference range : <=1.0. The reference r leatha was not used to int erpret this result as normal/abnormal . [facility]MhciryrPUQTHLPKBD5919-30-36 06:52:00 Test Item Value Reference Range Interpretation Comments Monocytes # (test code 0.6 See_Comment N [Aut omated message] The = Monocytes #) system which generated this result tra nsmitted reference range : <=0.8. The reference r leatha was not used to int erpret this result as normal/abnormal . [facility] HospitalAwlfrwcFFOSSGOXWC4413-66-91 06:52:00 Test Item Value Reference Range Interpretation Comments Lymphocytes # (test code = Lymphocytes 0.9 1.0-5.5 L #) [facility] HospitalYmojlipKKVZCMHMYR4649-80-54 06:52:00 Test Item Value Reference Range Interpretation Comments Lymphocytes (test code = Lymphocytes) 9.5 20.0-40.0 L [facility] HospitalMyupltuDYUGQPKZXL9146-06-95 06:52:00 Test Item Value Reference Range Interpretation Comments Segs (test code = Segs) 84.1 45.0-75.0 H [facility] HospitalPxkslsnAJVCVWFBPU8158-69-34 06:52:00 Test Item Value Reference Range Interpretation Comments Monocytes (test code = Monocytes) 6.0 2.0-12.0 N [facility] HospitalExxtjieICYAGFSUBU5523-32-25 06:52:00 Test Item Value Reference Range Interpretation Comments Eosinophils (test code = 0.1 See_Comment N [A utomated message] The Eosinophils) system which ge nerated this result tra nsmitted reference range : <=4.0. The reference r leatha was not used to int erpret this result as normal/abnormal . [facility] HospitalIvernzrXICULZXQO7842-79-27 19:08:00 Test Item Value Reference Range Interpretation Comments POC A Glu (test code = POC A Glu) 152 70-99 H [facility] HospitalIezulfdCGBQNQIOG6711-95-53 19:08:00 Test Item Value Reference Range Interpretation Comments POC A LA (test code = POC A LA) 0.7 0.5-2.2 N [facility] HospitalHmamleqOPIXXLYER8130-16-81 19:08:00 Test Item Value Reference Range Interpretation Comments POC A HCO3 (test code = POC A HCO3) 24 22-26 N [facility] HospitalKllunakFTZXBFMDY3775-27-81 19:08:00 Test Item Value Reference Range Interpretation Comments POC A BE (test code = -1 See_Comment N [Auto mated message] The POC A BE) system which ge nerated this result transmit juan reference range : <=2. The reference range was not used to interpr et this result as lashonda l/abnormal. [facility] HospitalYpxwmyiUUUKMHRWX1088-57-99 19:08:00 Test Item Value Reference Range Interpretation Comments POC A Hct (test code = POC A Hct) 35.0 36.0-48.0 L [facility] HospitalEraszcsRCNISCRHD6217-93-00 19:08:00 Test Item Value Reference Range Interpretation Comments POC A O2 Sat (test code = POC A O2 Sat) 96.0 95.0-100.0 N [facility] HospitalVfmeevrDTQHRODCJ5221-05-47 19:08:00 Test Item Value Reference Range Interpretation Comments POC A K (test code = POC A K) 3.4 3.5-5.1 L [facility] HospitalPwhtivpMRJKJKIFX4850-55-71 19:08:00 Test Item Value Reference Range Interpretation Comments POC A Na (test code = POC A Na) 138 135-145 N [facility] HospitalGolvtkfISBMLKDCR6730-59-71 19:08:00 Test Item Value Reference Range Interpretation Comments POC A PCO2 (test code = POC A PCO2) 40 35-45 N [facility] HospitalVwkktqvCFCHZNXEA6576-43-06 19:08:00 Test Item Value Reference Range Interpretation Comments POC A Ca Ion (test code = POC A Ca Ion) 1.26 1.16-1.30 N [facility] HospitalJlsooxuASMMBSFUF9385-05-97 19:08:00 Test Item Value Reference Range Interpretation Comments POC A Source (test code = POC A Source) ART [facility] HospitalFdlvbgeFXYQYMNTO1640-05-91 19:08:00 Test Item Value Reference Range Interpretation Comments POC A Temp (test code = POC A Temp) 37.0 [facility] HospitalXovdbkhALGVWYACG1451-68-41 19:08:00 Test Item Value Reference Range Interpretation Comments POC A PO2 (test code = POC A PO2) 85 80-100 N [facility] HospitalPngvdjiWNCNKVRAK6904-22-65 19:08:00 Test Item Value Reference Range Interpretation Comments POC A pH (test code = POC A pH) 7.39 7.35-7.45 N [facility] HospitalWatngamZEDNKUUBV6457-47-09 19:08:00 Test Item Value Reference Range Interpretation Comments POC A Glu (test code = POC A Glu) 152 70-99 H [facility] HospitalIrabxxtRGWQQCPRY3466-38-92 19:08:00 Test Item Value Reference Range Interpretation Comments POC A LA (test code = POC A LA) 0.7 0.5-2.2 N [facility] HospitalMswrdddFHTDUEMHT0650-29-48 19:08:00 Test Item Value Reference Range Interpretation Comments POC A HCO3 (test code = POC A HCO3) 24 22-26 N [facility] HospitalBqoezigQSCOWOHAT7325-11-57 19:08:00 Test Item Value Reference Range Interpretation Comments POC A BE (test code = -1 See_Comment N [Auto mated message] The POC A BE) system which ge nerated this result transmit juan reference range : <=2. The reference range was not used to interpr et this result as lashonda l/abnormal. [facility] HospitalRponudxVHJUHNVYZ3706-90-28 19:08:00 Test Item Value Reference Range Interpretation Comments POC A Hct (test code = POC A Hct) 35.0 36.0-48.0 L [facility] HospitalFnucundTSRLCYUZP5580-93-09 19:08:00 Test Item Value Reference Range Interpretation Comments POC A O2 Sat (test code = POC A O2 Sat) 96.0 95.0-100.0 N [facility] HospitalZvesmyrSHHYTEXYP9918-14-86 19:08:00 Test Item Value Reference Range Interpretation Comments POC A K (test code = POC A K) 3.4 3.5-5.1 L [facility] HospitalEehwusfGMQNTAADD9152-87-02 19:08:00 Test Item Value Reference Range Interpretation Comments POC A Na (test code = POC A Na) 138 135-145 N [facility] HospitalFcenhphXACCRZOPF5775-23-66 19:08:00 Test Item Value Reference Range Interpretation Comments POC A PCO2 (test code = POC A PCO2) 40 35-45 N [facility] HospitalBwmqaetJAMHPMUKC7453-44-98 19:08:00 Test Item Value Reference Range Interpretation Comments POC A Ca Ion (test code = POC A Ca Ion) 1.26 1.16-1.30 N [facility] HospitalPxqiahzYBRGEGLEB5261-22-43 19:08:00 Test Item Value Reference Range Interpretation Comments POC A Source (test code = POC A Source) ART [facility] HospitalRhbkcmoQKUKNLZBA6087-60-91 19:08:00 Test Item Value Reference Range Interpretation Comments POC A Temp (test code = POC A Temp) 37.0 [facility] HospitalUboqnigMLFZTMLIK9047-39-77 19:08:00 Test Item Value Reference Range Interpretation Comments POC A PO2 (test code = POC A PO2) 85 80-100 N [facility] HospitalMllgzvrVTHNCJNKQ4961-43-11 19:08:00 Test Item Value Reference Range Interpretation Comments POC A pH (test code = POC A pH) 7.39 7.35-7.45 N [facility] HospitalRsfcaebNALMOESJT3771-80-21 19:08:00 Test Item Value Reference Range Interpretation Comments POC A Glu (test code = POC A Glu) 152 70-99 H [facility] HospitalPugqghuFCORLSDGT6202-81-51 19:08:00 Test Item Value Reference Range Interpretation Comments POC A LA (test code = POC A LA) 0.7 0.5-2.2 N [facility] HospitalRiabunxNURVWOWKV1603-92-34 19:08:00 Test Item Value Reference Range Interpretation Comments POC A HCO3 (test code = POC A HCO3) 24 22-26 N [facility] HospitalOemhpbiKYJSLUNAS9942-72-28 19:08:00 Test Item Value Reference Range Interpretation Comments POC A BE (test code = -1 See_Comment N [Auto mated message] The POC A BE) system which ge nerated this result transmit juan reference range : <=2. The reference range was not used to interpr et this result as lashonda l/abnormal. [facility] HospitalSltoiocZQMBFGHZN7805-11-47 19:08:00 Test Item Value Reference Range Interpretation Comments POC A Hct (test code = POC A Hct) 35.0 36.0-48.0 L [facility] HospitalEwfzlidNUIXLLBDT0832-73-24 19:08:00 Test Item Value Reference Range Interpretation Comments POC A O2 Sat (test code = POC A O2 Sat) 96.0 95.0-100.0 N [facility] HospitalTijvqxrBYKAUOLQT3854-63-77 19:08:00 Test Item Value Reference Range Interpretation Comments POC A K (test code = POC A K) 3.4 3.5-5.1 L [facility] HospitalMxhurpoFUEOBHDEZ2192-96-54 19:08:00 Test Item Value Reference Range Interpretation Comments POC A Na (test code = POC A Na) 138 135-145 N [facility] HospitalPmegokwXAGCMHITI8992-94-32 19:08:00 Test Item Value Reference Range Interpretation Comments POC A PCO2 (test code = POC A PCO2) 40 35-45 N [facility] HospitalRcnwdehDDHPVQJLI2485-54-15 19:08:00 Test Item Value Reference Range Interpretation Comments POC A Ca Ion (test code = POC A Ca Ion) 1.26 1.16-1.30 N [facility] HospitalSjbatsgVLPCQRDZF4051-38-86 19:08:00 Test Item Value Reference Range Interpretation Comments POC A Source (test code = POC A Source) ART [facility] HospitalNccrajhCQHWOGMFC7004-14-92 19:08:00 Test Item Value Reference Range Interpretation Comments POC A Temp (test code = POC A Temp) 37.0 [facility] HospitalZyzkyxnJSIQVMZUC3744-11-87 19:08:00 Test Item Value Reference Range Interpretation Comments POC A PO2 (test code = POC A PO2) 85 80-100 N [facility] HospitalRrbnvjrYHVUIBITO4016-75-87 19:08:00 Test Item Value Reference Range Interpretation Comments POC A pH (test code = POC A pH) 7.39 7.35-7.45 N [facility] HospitalRyyuoouETINFABOP5157-17-60 19:08:00 Test Item Value Reference Range Interpretation Comments POC A Glu (test code = POC A Glu) 152 70-99 H [facility] HospitalUjsisqcUVUDKNUFP2631-24-07 19:08:00 Test Item Value Reference Range Interpretation Comments POC A LA (test code = POC A LA) 0.7 0.5-2.2 N [facility] HospitalTyudsjuSEJGWGTNU4859-36-17 19:08:00 Test Item Value Reference Range Interpretation Comments POC A HCO3 (test code = POC A HCO3) 24 22-26 N [facility] HospitalQqjzrawQOTTFIZWS5038-39-15 19:08:00 Test Item Value Reference Range Interpretation Comments POC A BE (test code = -1 See_Comment N [Auto mated message] The POC A BE) system which ge nerated this result transmit juan reference range : <=2. The reference range was not used to interpr et this result as lashonda l/abnormal. [facility] HospitalCugycgqGIZACUWSJ7661-86-84 19:08:00 Test Item Value Reference Range Interpretation Comments POC A Hct (test code = POC A Hct) 35.0 36.0-48.0 L [facility] HospitalUngvhyhGBDOWUHRW1211-01-95 19:08:00 Test Item Value Reference Range Interpretation Comments POC A O2 Sat (test code = POC A O2 Sat) 96.0 95.0-100.0 N [facility] HospitalCduruhpFWSCIBBRO5966-98-03 19:08:00 Test Item Value Reference Range Interpretation Comments POC A K (test code = POC A K) 3.4 3.5-5.1 L [facility] HospitalOvbflozKUOMOCJFJ7746-82-97 19:08:00 Test Item Value Reference Range Interpretation Comments POC A Na (test code = POC A Na) 138 135-145 N [facility] HospitalWyksiriJFCRFVSVT4398-03-40 19:08:00 Test Item Value Reference Range Interpretation Comments POC A PCO2 (test code = POC A PCO2) 40 35-45 N [facility] HospitalNnsclkjIKCCMBXGU9229-24-45 19:08:00 Test Item Value Reference Range Interpretation Comments POC A Ca Ion (test code = POC A Ca Ion) 1.26 1.16-1.30 N [facility] HospitalHraihirRSKLOAQAK5971-90-08 19:08:00 Test Item Value Reference Range Interpretation Comments POC A Source (test code = POC A Source) ART [facility] HospitalVmmpculOAKRCNTMK9329-32-71 19:08:00 Test Item Value Reference Range Interpretation Comments POC A Temp (test code = POC A Temp) 37.0 [facility] HospitalPzfhikwXPZOVZBDV1698-14-23 19:08:00 Test Item Value Reference Range Interpretation Comments POC A PO2 (test code = POC A PO2) 85 80-100 N [facility] HospitalVpmhwooQSNPGVJPP4687-44-49 19:08:00 Test Item Value Reference Range Interpretation Comments POC A pH (test code = POC A pH) 7.39 7.35-7.45 N [facility] HospitalKmvcfnkWEEXBHBLC6411-26-26 19:08:00 Test Item Value Reference Range Interpretation Comments POC A Glu (test code = POC A Glu) 152 70-99 H [facility] HospitalLdfetwmQORJKAJHN6688-96-97 19:08:00 Test Item Value Reference Range Interpretation Comments POC A LA (test code = POC A LA) 0.7 0.5-2.2 N [facility] HospitalQgwhnujQNYEDLPYJ0785-25-67 19:08:00 Test Item Value Reference Range Interpretation Comments POC A HCO3 (test code = POC A HCO3) 24 22-26 N [facility] HospitalHpbqqboXCZVQZXGH2462-45-93 19:08:00 Test Item Value Reference Range Interpretation Comments POC A BE (test code = -1 See_Comment N [Auto mated message] The POC A BE) system which ge nerated this result transmit juan reference range : <=2. The reference range was not used to interpr et this result as lashonda l/abnormal. [facility] HospitalPrewngjPPMEUKPHF7969-88-82 19:08:00 Test Item Value Reference Range Interpretation Comments POC A Hct (test code = POC A Hct) 35.0 36.0-48.0 L [facility] HospitalQesiptmBKZSGTNEJ5106-89-15 19:08:00 Test Item Value Reference Range Interpretation Comments POC A O2 Sat (test code = POC A O2 Sat) 96.0 95.0-100.0 N [facility] HospitalMuoposbKUJIBJILJ5752-15-01 19:08:00 Test Item Value Reference Range Interpretation Comments POC A K (test code = POC A K) 3.4 3.5-5.1 L [facility] HospitalRnxwhokLHFKCHJQM4091-87-77 19:08:00 Test Item Value Reference Range Interpretation Comments POC A Na (test code = POC A Na) 138 135-145 N [facility] HospitalCnugkzrENCPSXHYW9762-96-48 19:08:00 Test Item Value Reference Range Interpretation Comments POC A PCO2 (test code = POC A PCO2) 40 35-45 N [facility] HospitalFwgmsayUDMRBOAGF5521-06-11 19:08:00 Test Item Value Reference Range Interpretation Comments POC A Ca Ion (test code = POC A Ca Ion) 1.26 1.16-1.30 N [facility] HospitalDhnjmqpFKPKDCBUQ5109-36-28 19:08:00 Test Item Value Reference Range Interpretation Comments POC A Source (test code = POC A Source) ART [facility] HospitalZhwrgmcIROOUFXGC9841-18-18 19:08:00 Test Item Value Reference Range Interpretation Comments POC A Temp (test code = POC A Temp) 37.0 [facility] HospitalHkchwoiFWXWBZBDL6967-92-66 19:08:00 Test Item Value Reference Range Interpretation Comments POC A PO2 (test code = POC A PO2) 85 80-100 N [facility] HospitalVdjyuazUZWPDMNBS9316-32-65 19:08:00 Test Item Value Reference Range Interpretation Comments POC A pH (test code = POC A pH) 7.39 7.35-7.45 N [facility] HospitalRofgqozRUUYOFMUA9375-12-02 19:08:00 Test Item Value Reference Range Interpretation Comments POC A Glu (test code = POC A Glu) 152 70-99 H [facility] HospitalOujnrfjKCTZXEMHT2571-11-86 19:08:00 Test Item Value Reference Range Interpretation Comments POC A LA (test code = POC A LA) 0.7 0.5-2.2 N [facility] HospitalAcrreiaKTXCELELT9521-80-13 19:08:00 Test Item Value Reference Range Interpretation Comments POC A HCO3 (test code = POC A HCO3) 24 22-26 N [facility] HospitalLxdbjhkBLJVVBMTP2102-66-60 19:08:00 Test Item Value Reference Range Interpretation Comments POC A BE (test code = -1 See_Comment N [Auto mated message] The POC A BE) system which ge nerated this result transmit juan reference range : <=2. The reference range was not used to interpr et this result as lashonda l/abnormal. [facility] HospitalUzhuziuKBOWNWFVP3655-26-24 19:08:00 Test Item Value Reference Range Interpretation Comments POC A Hct (test code = POC A Hct) 35.0 36.0-48.0 L [facility] HospitalQmzkftsLQLOCXWOV8427-85-20 19:08:00 Test Item Value Reference Range Interpretation Comments POC A O2 Sat (test code = POC A O2 Sat) 96.0 95.0-100.0 N [facility] HospitalPvqtpwhFEUANCFZL4841-09-79 19:08:00 Test Item Value Reference Range Interpretation Comments POC A K (test code = POC A K) 3.4 3.5-5.1 L [facility] HospitalTapkyqkOMOYTFOMB9323-53-80 19:08:00 Test Item Value Reference Range Interpretation Comments POC A Na (test code = POC A Na) 138 135-145 N [facility] HospitalGexfvumGVBXTGIOL7413-30-70 19:08:00 Test Item Value Reference Range Interpretation Comments POC A PCO2 (test code = POC A PCO2) 40 35-45 N [facility] HospitalPvacjdgGXTKUHNBP9630-52-55 19:08:00 Test Item Value Reference Range Interpretation Comments POC A Ca Ion (test code = POC A Ca Ion) 1.26 1.16-1.30 N [facility] HospitalLshvvqeSCMTZUBLG5341-06-90 19:08:00 Test Item Value Reference Range Interpretation Comments POC A Source (test code = POC A Source) ART [facility] HospitalKtadharBURJSTTSI9710-44-30 19:08:00 Test Item Value Reference Range Interpretation Comments POC A Temp (test code = POC A Temp) 37.0 [facility] HospitalEtznfrmVDHKUGOGX1322-65-88 19:08:00 Test Item Value Reference Range Interpretation Comments POC A PO2 (test code = POC A PO2) 85 80-100 N [facility] HospitalHgaojjjMGXVOFVCK3130-51-24 19:08:00 Test Item Value Reference Range Interpretation Comments POC A pH (test code = POC A pH) 7.39 7.35-7.45 N [facility] HospitalLzqzcolWGESSNZTO1204-50-76 19:08:00 Test Item Value Reference Range Interpretation Comments POC A Glu (test code = POC A Glu) 152 70-99 H [facility] HospitalBgukeziYDFIRLAIE4779-07-74 19:08:00 Test Item Value Reference Range Interpretation Comments POC A LA (test code = POC A LA) 0.7 0.5-2.2 N [facility] HospitalBchfdohPCBXTKEPN2422-12-11 19:08:00 Test Item Value Reference Range Interpretation Comments POC A HCO3 (test code = POC A HCO3) 24 22-26 N [facility] HospitalJqbuumoEJBVXOIIH8869-47-28 19:08:00 Test Item Value Reference Range Interpretation Comments POC A BE (test code = -1 See_Comment N [Auto mated message] The POC A BE) system which ge nerated this result transmit juan reference range : <=2. The reference range was not used to interpr et this result as lashonda l/abnormal. [facility] HospitalJzygwxsOSRCVQHHO5205-00-63 19:08:00 Test Item Value Reference Range Interpretation Comments POC A Hct (test code = POC A Hct) 35.0 36.0-48.0 L [facility] HospitalSoxrzjhZFJDVZMEX6024-97-05 19:08:00 Test Item Value Reference Range Interpretation Comments POC A O2 Sat (test code = POC A O2 Sat) 96.0 95.0-100.0 N [facility] HospitalVnzvbhoYISPZEQQI2035-20-95 19:08:00 Test Item Value Reference Range Interpretation Comments POC A K (test code = POC A K) 3.4 3.5-5.1 L [facility] HospitalXhsltgaCKOMTBRWV3825-84-35 19:08:00 Test Item Value Reference Range Interpretation Comments POC A Na (test code = POC A Na) 138 135-145 N [facility] HospitalPufuvywBPEQZPNHV6358-14-85 19:08:00 Test Item Value Reference Range Interpretation Comments POC A PCO2 (test code = POC A PCO2) 40 35-45 N [facility] HospitalTodgblqDAKXXSUKZ1071-17-90 19:08:00 Test Item Value Reference Range Interpretation Comments POC A Ca Ion (test code = POC A Ca Ion) 1.26 1.16-1.30 N [facility] HospitalBhzvqagHUEAVSGWA2802-84-59 19:08:00 Test Item Value Reference Range Interpretation Comments POC A Source (test code = POC A Source) ART [facility] HospitalZkdmtayXSJZQEIQD2921-92-55 19:08:00 Test Item Value Reference Range Interpretation Comments POC A Temp (test code = POC A Temp) 37.0 [facility] HospitalYznhkqcULOVTRYBE3198-25-45 19:08:00 Test Item Value Reference Range Interpretation Comments POC A PO2 (test code = POC A PO2) 85 80-100 N [facility] HospitalOpzfjhbPQQDYROXB6512-97-53 19:08:00 Test Item Value Reference Range Interpretation Comments POC A pH (test code = POC A pH) 7.39 7.35-7.45 N [facility] HospitalDkqyujjDBIQTKUHI0356-17-22 19:08:00 Test Item Value Reference Range Interpretation Comments POC A Glu (test code = POC A Glu) 152 70-99 H [facility] HospitalHskkwjsOKNHOPAFL6844-38-15 19:08:00 Test Item Value Reference Range Interpretation Comments POC A LA (test code = POC A LA) 0.7 0.5-2.2 N [facility] HospitalZncqwtlXTJMSBWVR7091-43-74 19:08:00 Test Item Value Reference Range Interpretation Comments POC A HCO3 (test code = POC A HCO3) 24 22-26 N [facility] HospitalPyzwdatAUIVRWSFX9329-77-00 19:08:00 Test Item Value Reference Range Interpretation Comments POC A BE (test code = -1 See_Comment N [Auto mated message] The POC A BE) system which ge nerated this result transmit juan reference range : <=2. The reference range was not used to interpr et this result as lashonda l/abnormal. [facility] HospitalZomhyvuCEAYGHFAK1090-20-41 19:08:00 Test Item Value Reference Range Interpretation Comments POC A Hct (test code = POC A Hct) 35.0 36.0-48.0 L [facility] HospitalFjcawnlOXDISXHMK0378-64-06 19:08:00 Test Item Value Reference Range Interpretation Comments POC A O2 Sat (test code = POC A O2 Sat) 96.0 95.0-100.0 N [facility] HospitalFmhqqueGCXDTROTE7597-06-80 19:08:00 Test Item Value Reference Range Interpretation Comments POC A K (test code = POC A K) 3.4 3.5-5.1 L [facility] HospitalYvocuieXERHMXYOK0466-75-77 19:08:00 Test Item Value Reference Range Interpretation Comments POC A Na (test code = POC A Na) 138 135-145 N [facility] HospitalNdwxlbcBSRMHHYQG8955-55-76 19:08:00 Test Item Value Reference Range Interpretation Comments POC A PCO2 (test code = POC A PCO2) 40 35-45 N [facility] HospitalKoihgxpVTWQAIITM8575-74-02 19:08:00 Test Item Value Reference Range Interpretation Comments POC A Ca Ion (test code = POC A Ca Ion) 1.26 1.16-1.30 N [facility] HospitalSmfzcgnAEMGFSJCB8309-77-96 19:08:00 Test Item Value Reference Range Interpretation Comments POC A Source (test code = POC A Source) ART [facility] HospitalMfeludoWXQESVZJN6553-85-76 19:08:00 Test Item Value Reference Range Interpretation Comments POC A Temp (test code = POC A Temp) 37.0 [facility] HospitalRamndovMGQCSQOLR2508-68-61 19:08:00 Test Item Value Reference Range Interpretation Comments POC A PO2 (test code = POC A PO2) 85 80-100 N [facility] HospitalBgremnlLJBPIVPSN5058-35-13 19:08:00 Test Item Value Reference Range Interpretation Comments POC A pH (test code = POC A pH) 7.39 7.35-7.45 N [facility] HospitalDagsyslMMEJISUOQ4837-51-16 17:27:00 Test Item Value Reference Range Interpretation Comments POC A PCO2 (test code = POC A PCO2) 44 35-45 N [facility] HospitalCrivydtLBCUOHSEW6973-46-49 17:27:00 Test Item Value Reference Range Interpretation Comments POC A BE (test code = 1 See_Comment N [Auto mated message] The POC A BE) system which ge nerated this result transmit juan reference range : <=2. The reference range was not used to interpr et this result as lashonda l/abnormal. [facility] HospitalCkcjtocXUVCIMGLM1972-80-37 17:27:00 Test Item Value Reference Range Interpretation Comments POC A HCO3 (test code = POC A HCO3) 26 22-26 N [facility] HospitalSqqxflvFAQFGIXSU8237-35-33 17:27:00 Test Item Value Reference Range Interpretation Comments POC A PO2 (test code = POC A PO2) 161 80-100 H [facility] HospitalBvaamofYQRWTBFZE7488-97-26 17:27:00 Test Item Value Reference Range Interpretation Comments POC A Na (test code = POC A Na) 137 135-145 N [facility] HospitalQ[facility]jqyqIEASOCIZH1074-64-19 17:27:00 Test Item Value Reference Range Interpretation Comments POC A Ca Ion (test code = POC A Ca Ion) 1.29 1.16-1.30 N [facility] HospitalZvpglisPFHNWCHMT9840-82-42 17:27:00 Test Item Value Reference Range Interpretation Comments POC A O2 Sat (test code = POC A O2 Sat) 99.0 95.0-100.0 N [facility] HospitalUdqvianSROBFICXJ4012-24-38 17:27:00 Test Item Value Reference Range Interpretation Comments POC A K (test code = POC A K) 3.9 3.5-5.1 N [facility] HospitalVrynfiaZEXXLMORD2484-24-50 17:27:00 Test Item Value Reference Range Interpretation Comments POC A Hct (test code = POC A Hct) 38.0 36.0-48.0 N [facility] HospitalCiwkvlnBZNIFOTBB0711-50-28 17:27:00 Test Item Value Reference Range Interpretation Comments POC A Source (test code = POC A Source) ART [facility] HospitalZfngxhiMGBJXXDKU4039-87-17 17:27:00 Test Item Value Reference Range Interpretation Comments POC A pH (test code = POC A pH) 7.38 7.35-7.45 N [facility] HospitalUqxinktNDEGZQOGW2510-64-88 17:27:00 Test Item Value Reference Range Interpretation Comments POC A Temp (test code = POC A Temp) 37.0 [facility] HospitalZgxzbqeEGQHRAKIC3381-73-13 17:27:00 Test Item Value Reference Range Interpretation Comments POC A Glu (test code = POC A Glu) 150 70-99 H [facility] HospitalLsolzdqFTDJHVJWG7155-76-71 17:27:00 Test Item Value Reference Range Interpretation Comments POC A LA (test code = POC A LA) 1.1 0.5-2.2 N [facility] HospitalNuzjiftVAXHEYXNU7460-51-61 17:27:00 Test Item Value Reference Range Interpretation Comments POC A PCO2 (test code = POC A PCO2) 44 35-45 N [facility] HospitalGfnbfywHCSTDIVAG5535-10-45 17:27:00 Test Item Value Reference Range Interpretation Comments POC A BE (test code = 1 See_Comment N [Auto mated message] The POC A BE) system which ge nerated this result transmit juan reference range : <=2. The reference range was not used to interpr et this result as lashonda l/abnormal. [facility] HospitalEhitvggKSGYHMKHQ1251-78-35 17:27:00 Test Item Value Reference Range Interpretation Comments POC A HCO3 (test code = POC A HCO3) 26 22-26 N [facility] HospitalUzzywxwLOEFNBDON7083-61-75 17:27:00 Test Item Value Reference Range Interpretation Comments POC A PO2 (test code = POC A PO2) 161 80-100 H [facility] HospitalDwijkqfPLHKUEQGD3840-44-13 17:27:00 Test Item Value Reference Range Interpretation Comments POC A Na (test code = POC A Na) 137 135-145 N [facility] HospitalYqitlzlWJHCQTUGD7113-28-30 17:27:00 Test Item Value Reference Range Interpretation Comments POC A Ca Ion (test code = POC A Ca Ion) 1.29 1.16-1.30 N [facility] HospitalEfjzdqlTUWREIGDT9088-49-48 17:27:00 Test Item Value Reference Range Interpretation Comments POC A O2 Sat (test code = POC A O2 Sat) 99.0 95.0-100.0 N [facility] HospitalPucwphaXFTBETQYN4005-65-28 17:27:00 Test Item Value Reference Range Interpretation Comments POC A K (test code = POC A K) 3.9 3.5-5.1 N [facility] HospitalNtqqlmuCNPKBQCDB1602-08-71 17:27:00 Test Item Value Reference Range Interpretation Comments POC A Hct (test code = POC A Hct) 38.0 36.0-48.0 N [facility] HospitalZumiuzbSSYLREIFH8740-61-36 17:27:00 Test Item Value Reference Range Interpretation Comments POC A Source (test code = POC A Source) ART [facility] HospitalUlzhmskFIVHEJYRX4426-02-28 17:27:00 Test Item Value Reference Range Interpretation Comments POC A pH (test code = POC A pH) 7.38 7.35-7.45 N [facility] HospitalTlfuetoABOXLNCWE0665-42-91 17:27:00 Test Item Value Reference Range Interpretation Comments POC A Temp (test code = POC A Temp) 37.0 [facility] HospitalChvukmqKPQPORQTW1292-19-81 17:27:00 Test Item Value Reference Range Interpretation Comments POC A Glu (test code = POC A Glu) 150 70-99 H [facility] HospitalNtuphluUXZTZIVSJ8183-27-00 17:27:00 Test Item Value Reference Range Interpretation Comments POC A LA (test code = POC A LA) 1.1 0.5-2.2 N [facility] HospitalWboudqbSISNTUXOQ5554-80-00 17:27:00 Test Item Value Reference Range Interpretation Comments POC A PCO2 (test code = POC A PCO2) 44 35-45 N [facility] HospitalGzxwwisOLTFQKXVN6626-56-53 17:27:00 Test Item Value Reference Range Interpretation Comments POC A BE (test code = 1 See_Comment N [Auto mated message] The POC A BE) system which ge nerated this result transmit juan reference range : <=2. The reference range was not used to interpr et this result as lashonda l/abnormal. [facility] HospitalFluxyppWGJRHDYPC1142-98-00 17:27:00 Test Item Value Reference Range Interpretation Comments POC A HCO3 (test code = POC A HCO3) 26 22-26 N [facility] HospitalXvojbtgFHFXNGOOZ0364-47-93 17:27:00 Test Item Value Reference Range Interpretation Comments POC A PO2 (test code = POC A PO2) 161 80-100 H [facility] HospitalBqnpbszOMWSAYWUR0193-11-34 17:27:00 Test Item Value Reference Range Interpretation Comments POC A Na (test code = POC A Na) 137 135-145 N [facility] HospitalBcpzjbbIWFURUDPD8586-10-05 17:27:00 Test Item Value Reference Range Interpretation Comments POC A Ca Ion (test code = POC A Ca Ion) 1.29 1.16-1.30 N [facility] HospitalCyguogdLZZVWFAWE4234-81-76 17:27:00 Test Item Value Reference Range Interpretation Comments POC A O2 Sat (test code = POC A O2 Sat) 99.0 95.0-100.0 N [facility] HospitalLffhiwbSWLWAMDMJ4551-90-29 17:27:00 Test Item Value Reference Range Interpretation Comments POC A K (test code = POC A K) 3.9 3.5-5.1 N [facility] HospitalFxzxnfcXYEVBKZPB6304-48-79 17:27:00 Test Item Value Reference Range Interpretation Comments POC A Hct (test code = POC A Hct) 38.0 36.0-48.0 N [facility] HospitalCvhzkzuTOAPOZTPZ7904-58-07 17:27:00 Test Item Value Reference Range Interpretation Comments POC A Source (test code = POC A Source) ART [facility] HospitalTzfyokcXSMPIXQVK7636-23-81 17:27:00 Test Item Value Reference Range Interpretation Comments POC A pH (test code = POC A pH) 7.38 7.35-7.45 N [facility] HospitalOnssiooTSMZUXNJA3303-13-95 17:27:00 Test Item Value Reference Range Interpretation Comments POC A Temp (test code = POC A Temp) 37.0 [facility] HospitalCipbignJNPQNYOYE2638-02-49 17:27:00 Test Item Value Reference Range Interpretation Comments POC A Glu (test code = POC A Glu) 150 70-99 H [facility] HospitalRtrwcsmLEQFIOXGU5118-30-85 17:27:00 Test Item Value Reference Range Interpretation Comments POC A LA (test code = POC A LA) 1.1 0.5-2.2 N [facility] HospitalCvamyshTOBMKSKRN0630-22-30 17:27:00 Test Item Value Reference Range Interpretation Comments POC A PCO2 (test code = POC A PCO2) 44 35-45 N [facility] HospitalLmaziuqWCDPOLGXP0184-38-74 17:27:00 Test Item Value Reference Range Interpretation Comments POC A BE (test code = 1 See_Comment N [Auto mated message] The POC A BE) system which ge nerated this result transmit juan reference range : <=2. The reference range was not used to interpr et this result as lashonda l/abnormal. [facility] HospitalChtqaooUULCAZMUZ4169-48-57 17:27:00 Test Item Value Reference Range Interpretation Comments POC A HCO3 (test code = POC A HCO3) 26 22-26 N [facility] HospitalGfeairhBRBETBVCW9612-72-47 17:27:00 Test Item Value Reference Range Interpretation Comments POC A PO2 (test code = POC A PO2) 161 80-100 H [facility] HospitalNoandtsDTSPXZPTP3781-49-14 17:27:00 Test Item Value Reference Range Interpretation Comments POC A Na (test code = POC A Na) 137 135-145 N [facility] HospitalGkpwsrhQDGZVRSSE6175-17-16 17:27:00 Test Item Value Reference Range Interpretation Comments POC A Ca Ion (test code = POC A Ca Ion) 1.29 1.16-1.30 N [facility] HospitalWaowcjtKYJVNVRAV5723-24-01 17:27:00 Test Item Value Reference Range Interpretation Comments POC A O2 Sat (test code = POC A O2 Sat) 99.0 95.0-100.0 N [facility] HospitalUfkfwqtNGWAZWETL6648-91-08 17:27:00 Test Item Value Reference Range Interpretation Comments POC A K (test code = POC A K) 3.9 3.5-5.1 N [facility] HospitalHserngxCSPJRDZPM2368-31-51 17:27:00 Test Item Value Reference Range Interpretation Comments POC A Hct (test code = POC A Hct) 38.0 36.0-48.0 N [facility] HospitalDshlvleLMVHWZCLM0261-59-78 17:27:00 Test Item Value Reference Range Interpretation Comments POC A Source (test code = POC A Source) ART [facility] HospitalQdorqakGQCDCYESU1782-93-21 17:27:00 Test Item Value Reference Range Interpretation Comments POC A pH (test code = POC A pH) 7.38 7.35-7.45 N [facility] HospitalQkypbrjKEGSDNWDY2613-17-06 17:27:00 Test Item Value Reference Range Interpretation Comments POC A Temp (test code = POC A Temp) 37.0 [facility] HospitalUrjtursWRTRFZLPM9524-04-09 17:27:00 Test Item Value Reference Range Interpretation Comments POC A Glu (test code = POC A Glu) 150 70-99 H [facility] HospitalCgxmoghQONHYGQNG6731-82-40 17:27:00 Test Item Value Reference Range Interpretation Comments POC A LA (test code = POC A LA) 1.1 0.5-2.2 N [facility] HospitalEcertykHOKRJPJOB7365-90-60 17:27:00 Test Item Value Reference Range Interpretation Comments POC A PCO2 (test code = POC A PCO2) 44 35-45 N [facility] HospitalWrwthhsKFMUVGGVJ2990-03-56 17:27:00 Test Item Value Reference Range Interpretation Comments POC A BE (test code = 1 See_Comment N [Auto mated message] The POC A BE) system which ge nerated this result transmit juan reference range : <=2. The reference range was not used to interpr et this result as lashonda l/abnormal. [facility] HospitalNpsrydkQQEHWRIIO9367-39-69 17:27:00 Test Item Value Reference Range Interpretation Comments POC A HCO3 (test code = POC A HCO3) 26 22-26 N [facility] HospitalFijsbhvSMIECETNC3409-40-61 17:27:00 Test Item Value Reference Range Interpretation Comments POC A PO2 (test code = POC A PO2) 161 80-100 H [facility] HospitalIdogtdyHURKLIBHS5848-23-31 17:27:00 Test Item Value Reference Range Interpretation Comments POC A Na (test code = POC A Na) 137 135-145 N [facility] HospitalScchowiQIVYJMDVH6717-57-79 17:27:00 Test Item Value Reference Range Interpretation Comments POC A Ca Ion (test code = POC A Ca Ion) 1.29 1.16-1.30 N [facility] HospitalYcbbttmLNSKLLIXS8420-68-21 17:27:00 Test Item Value Reference Range Interpretation Comments POC A O2 Sat (test code = POC A O2 Sat) 99.0 95.0-100.0 N [facility] HospitalXnledfsDWHGZNLWN6877-29-72 17:27:00 Test Item Value Reference Range Interpretation Comments POC A K (test code = POC A K) 3.9 3.5-5.1 N [facility] HospitalQwwujwsQRYGLICTR3780-47-99 17:27:00 Test Item Value Reference Range Interpretation Comments POC A Hct (test code = POC A Hct) 38.0 36.0-48.0 N [facility] HospitalAswthovYVVSHXSDU9501-78-65 17:27:00 Test Item Value Reference Range Interpretation Comments POC A Source (test code = POC A Source) ART [facility] HospitalNfavmlcVPZYWLBYI5489-19-17 17:27:00 Test Item Value Reference Range Interpretation Comments POC A pH (test code = POC A pH) 7.38 7.35-7.45 N [facility] HospitalZugstwfQVZBEAQLS5859-37-13 17:27:00 Test Item Value Reference Range Interpretation Comments POC A Temp (test code = POC A Temp) 37.0 [facility] HospitalGinqmkiGCQDVDZLW7347-50-20 17:27:00 Test Item Value Reference Range Interpretation Comments POC A Glu (test code = POC A Glu) 150 70-99 H [facility] HospitalNnjnigpVHIHZJVRF3139-64-47 17:27:00 Test Item Value Reference Range Interpretation Comments POC A LA (test code = POC A LA) 1.1 0.5-2.2 N [facility] HospitalOdghwtrPGJZFFLLR3687-81-26 17:27:00 Test Item Value Reference Range Interpretation Comments POC A PCO2 (test code = POC A PCO2) 44 35-45 N [facility] HospitalHevkcrkZUEJYBSPR7297-88-55 17:27:00 Test Item Value Reference Range Interpretation Comments POC A BE (test code = 1 See_Comment N [Auto mated message] The POC A BE) system which ge nerated this result transmit juan reference range : <=2. The reference range was not used to interpr et this result as lashonda l/abnormal. [facility] HospitalYvjjlkqPAPGFFHCU8085-59-09 17:27:00 Test Item Value Reference Range Interpretation Comments POC A HCO3 (test code = POC A HCO3) 26 22-26 N [facility] HospitalPwpglyrBDEFURLIM3990-83-25 17:27:00 Test Item Value Reference Range Interpretation Comments POC A PO2 (test code = POC A PO2) 161 80-100 H [facility] HospitalTuebgemAFXAIHDHH3334-68-26 17:27:00 Test Item Value Reference Range Interpretation Comments POC A Na (test code = POC A Na) 137 135-145 N [facility] HospitalRwnxrgoVVUIGTEDT6652-48-13 17:27:00 Test Item Value Reference Range Interpretation Comments POC A Ca Ion (test code = POC A Ca Ion) 1.29 1.16-1.30 N [facility] HospitalFahfpvjZFYRKMIBI9804-98-16 17:27:00 Test Item Value Reference Range Interpretation Comments POC A O2 Sat (test code = POC A O2 Sat) 99.0 95.0-100.0 N [facility] HospitalIbcvshlSWLWTSDBT1816-26-40 17:27:00 Test Item Value Reference Range Interpretation Comments POC A K (test code = POC A K) 3.9 3.5-5.1 N [facility] HospitalQnywvgaWOOXDQKAK1497-59-79 17:27:00 Test Item Value Reference Range Interpretation Comments POC A Hct (test code = POC A Hct) 38.0 36.0-48.0 N [facility] HospitalWnfvcfmODBMVUPQZ1431-95-73 17:27:00 Test Item Value Reference Range Interpretation Comments POC A Source (test code = POC A Source) ART [facility] HospitalOrhaymoMPEKCWPYC6340-10-21 17:27:00 Test Item Value Reference Range Interpretation Comments POC A pH (test code = POC A pH) 7.38 7.35-7.45 N [facility] HospitalClivuijTLCLCDCXQ3877-17-41 17:27:00 Test Item Value Reference Range Interpretation Comments POC A Temp (test code = POC A Temp) 37.0 [facility] HospitalYfaioclLEVCIYQJK6336-26-41 17:27:00 Test Item Value Reference Range Interpretation Comments POC A Glu (test code = POC A Glu) 150 70-99 H [facility] HospitalArkkyouDMRGYDMGM0695-87-66 17:27:00 Test Item Value Reference Range Interpretation Comments POC A LA (test code = POC A LA) 1.1 0.5-2.2 N [facility] HospitalRyvfzfdAPBVHARWE1353-53-58 17:27:00 Test Item Value Reference Range Interpretation Comments POC A PCO2 (test code = POC A PCO2) 44 35-45 N [facility] HospitalFhtgcvzOTMDHNVFM9039-21-73 17:27:00 Test Item Value Reference Range Interpretation Comments POC A BE (test code = 1 See_Comment N [Auto mated message] The POC A BE) system which ge nerated this result transmit juan reference range : <=2. The reference range was not used to interpr et this result as lashonda l/abnormal. [facility] HospitalNgmeboaXBWRSQKGW7960-09-26 17:27:00 Test Item Value Reference Range Interpretation Comments POC A HCO3 (test code = POC A HCO3) 26 22-26 N [facility] HospitalEegwohdTDHHYTZPY8840-76-42 17:27:00 Test Item Value Reference Range Interpretation Comments POC A PO2 (test code = POC A PO2) 161 80-100 H [facility] HospitalEnobnhvKAPRIGJQY1895-07-07 17:27:00 Test Item Value Reference Range Interpretation Comments POC A Na (test code = POC A Na) 137 135-145 N [facility] HospitalUzgqgxcTDUHWMRJK1802-00-91 17:27:00 Test Item Value Reference Range Interpretation Comments POC A Ca Ion (test code = POC A Ca Ion) 1.29 1.16-1.30 N [facility] HospitalLhasexoPRRKJVBJR5148-21-69 17:27:00 Test Item Value Reference Range Interpretation Comments POC A O2 Sat (test code = POC A O2 Sat) 99.0 95.0-100.0 N [facility] HospitalPylpfiiSVRNHVLKW3303-38-61 17:27:00 Test Item Value Reference Range Interpretation Comments POC A K (test code = POC A K) 3.9 3.5-5.1 N [facility] HospitalJfpkuyyFXHBYDGTY8595-08-04 17:27:00 Test Item Value Reference Range Interpretation Comments POC A Hct (test code = POC A Hct) 38.0 36.0-48.0 N [facility] HospitalUweldwtLZOTZGZNC8432-24-15 17:27:00 Test Item Value Reference Range Interpretation Comments POC A Source (test code = POC A Source) ART [facility] HospitalXymyltzBOIZPLUPV0472-34-17 17:27:00 Test Item Value Reference Range Interpretation Comments POC A pH (test code = POC A pH) 7.38 7.35-7.45 N [facility] HospitalAxspypqEUQNUDNGH3552-93-21 17:27:00 Test Item Value Reference Range Interpretation Comments POC A Temp (test code = POC A Temp) 37.0 [facility] HospitalPyikoypRRXGUAKDO1565-76-44 17:27:00 Test Item Value Reference Range Interpretation Comments POC A Glu (test code = POC A Glu) 150 70-99 H [facility] HospitalFjfgkfpPVYERQRPO5528-13-11 17:27:00 Test Item Value Reference Range Interpretation Comments POC A LA (test code = POC A LA) 1.1 0.5-2.2 N [facility] HospitalSawxyypDHUFHKVXX5626-62-29 17:27:00 Test Item Value Reference Range Interpretation Comments POC A PCO2 (test code = POC A PCO2) 44 35-45 N [facility] HospitalUxlivgxJCXMYMKFN1351-10-45 17:27:00 Test Item Value Reference Range Interpretation Comments POC A BE (test code = 1 See_Comment N [Auto mated message] The POC A BE) system which ge nerated this result transmit juan reference range : <=2. The reference range was not used to interpr et this result as lashonda l/abnormal. [facility] HospitalLwehotaIWYKVDRTZ8369-56-41 17:27:00 Test Item Value Reference Range Interpretation Comments POC A HCO3 (test code = POC A HCO3) 26 22-26 N [facility] HospitalDipocfaQQNROKKAD2976-04-75 17:27:00 Test Item Value Reference Range Interpretation Comments POC A PO2 (test code = POC A PO2) 161 80-100 H [facility] HospitalMcrcaumRRQVUCJRY7338-19-39 17:27:00 Test Item Value Reference Range Interpretation Comments POC A Na (test code = POC A Na) 137 135-145 N [facility] HospitalZntsdewQXCUJMORJ8979-26-81 17:27:00 Test Item Value Reference Range Interpretation Comments POC A Ca Ion (test code = POC A Ca Ion) 1.29 1.16-1.30 N [facility]jqjechHOTIGVDZK3297-73-77 17:27:00 Test Item Value Reference Range Interpretation Comments POC A O2 Sat (test code = POC A O2 Sat) 99.0 95.0-100.0 [facility]UNHDSAYC0966[facility] 17:27:00 Test Item Value Reference Range Interpretation Comments POC A K (test code = POC A K) 3.9 3.5-5.1 N [facility]JrczuszQZIIUMNRG4720-59-82 17:27:00 Test Item Value Reference Range Interpretation Comments POC A Hct (test code = POC A Hct) 38.0 36.0-48.0 N [facility]CgxmllnIGNSRHWCD4311-93-01 17:27:00 Test Item Value Reference Range Interpretation Comments POC A Source (test code = POC A Source) [facility]BfswiixXAOACGIRL9764-49-01 17:27:00 Test Item Value Reference Range Interpretation Comments POC A pH (test code = POC A pH) 7.38 7.35-7.45 N [facility]VmfajxoFANLUMQSQ2794-55-75 17:27:00 Test Item Value Reference Range Interpretation Comments POC A Temp (test code = POC A Temp) 37.0 [facility]RvdzwbqXXJIEQKAY7959-72-49 17:27:00 Test Item Value Reference Range Interpretation Comments POC A Glu (test code = POC A Glu) 150 70-99 [facility]manGlgaiapBANPMWHJI2241-96-10 17:27:00 Test Item Value Reference Range Interpretation Comments POC A LA (test code = POC A LA) 1.1 0.5-2.2 N [facility] [employer] WNMQXQX7392-55-04 14:25:00 Test Item Value Reference Range Interpretation Comments ABO/Rh (test code = ABO/Rh) A NEG [facility] [employer] [id number] 14:25:00 Test Item Value Reference Range Interpretation Comments Antibody Scrn (test Negative (10/03/2012 N code = Antibody Scrn) 09:25:00) [facility] [employer] [id number] 14:25:00 Test Item Value Reference Range Interpretation Comments ABO/Rh (test code = ABO/Rh) A NEG [facility] [employer] [id number] 14:25:00 Test Item Value Reference Range Interpretation Comments Antibody Scrn (test Negative (10/03/2012 N code = Antibody Scrn) 09:25:00) [facility] [id number] 14:25:00 Test Item Value Reference Range Interpretation Comments ABO/Rh (test code = ABO/Rh) A NEG [facility] [employer] [id number] 14:25:00 Test Item Value Reference Range Interpretation Comments Antibody Scrn (test Negative (10/03/2012 N code = Antibody Scrn) 09:25:00) [facility] [employer] [id number] 14:25:00 Test Item Value Reference Range Interpretation Comments ABO/Rh (test code = ABO/Rh) A [facility] [employer] [facility] PKNHNZQ5601-11-07 14:25:00 Test Item Value Reference Range Interpretation Comments Antibody Scrn (test Negative (10/03/2012 N code = Antibody Scrn) 09:25:00) [facility] [employer] [id number] 14:25:00 Test Item Value Reference Range Interpretation Comments ABO/Rh (test code = ABO/Rh) A [facility] [employer] [id number] 14:25:00 Test Item Value Reference Range Interpretation Comments Antibody Scrn (test Negative (10/03/2012 N code = Antibody Scrn) 09:25:00) [facility] [employer] [id number] 14:25:00 Test Item Value Reference Range Interpretation Comments ABO/Rh (test code = ABO/Rh) A [facility] [employer] [id number] 14:25:00 Test Item Value Reference Range Interpretation Comments Antibody Scrn (test Negative (10/03/2012 N code = Antibody Scrn) 09:25:00) [facility] [employer] [id number] 14:25:00 Test Item Value Reference Range Interpretation Comments ABO/Rh (test code = ABO/Rh) A [facility] [employer] [id number] 14:25:00 Test Item Value Reference Range Interpretation Comments Antibody Scrn (test Negative (10/03/2012 N code = Antibody Scrn) 09:25:00) [facility] [employer] [id number] 14:25:00 Test Item Value Reference Range Interpretation Comments ABO/Rh (test code = ABO/Rh) A NEG [facility] [employer] [id number] 14:25:00 Test Item Value Reference Range Interpretation Comments Antibody Scrn (test Negative (10/03/2012 N code = Antibody Scrn) 09:25:00) [facility] Notes Date/Time Note Provider Source 2016-01-13 17:17:59-00:00 EXAMINATION: Left knee 2 views [facility] HISTORY: Left knee pain status post fall; [...] 2016-01-13 17:17:59-00:00 EXAMINATION: Left knee 2 views [facility] HISTORY: Left knee pain status post fall; [...] 2016-01-13 17:17:59-00:00 EXAMINATION: Left knee 2 views [facility] HISTORY: Left knee pain status post fall; [...] 2016-01-13 17:17:59-00:00 EXAMINATION: Left knee 2 views [facility] HISTORY: Left knee pain status post fall; [...] fracture 2016-01-13 17:17:52-00:00 LUMBAR SPINE 4 VIEWS [facility] Clinical History: 75-year-old female with low [...] disease. 2016-01-13 17:17:52-00:00 LUMBAR SPINE 4 VIEWS [facility] Clinical History: 75-year-old female with low [...] disease. 2016-01-13 17:17:52-00:00 LUMBAR SPINE 4 VIEWS [facility] Clinical History: 75-year-old female with low [...] disease. 2016-01-13 17:17:52-00:00 LUMBAR SPINE 4 VIEWS [facility] Clinical History: 75-year-old female with low [...] of the left hip witho ut contrast [facility] HISTORY: Left hip pain status post [...] of the left hip witho ut contrast [facility] HISTORY: Left hip pain status post [...] of the left hip witho ut contrast [facility] HISTORY: Left hip pain status post [...] of the left hip witho ut contrast [facility] HISTORY: Left hip pain status post [...] EXAM: MRI LUMBAR SPINE WITHOUT CONTRAS T [facility] DATE: 01/11/2016 10:08 PM CDT . CLINICAL [...] EXAM: MRI LUMBAR SPINE WITHOUT CONTRAS T [facility] DATE: 01/11/2016 10:08 PM CDT . CLINICAL [...] EXAM: MRI LUMBAR SPINE WITHOUT CONTRAS T [facility] DATE: 01/11/2016 10:08 PM CDT . CLINICAL [...] EXAM: MRI LUMBAR SPINE WITHOUT CONTRAS T [facility] DATE: 01/11/2016 10:08 PM CDT . CLINICAL [...] 19:46:17-00:00 CLINICAL HISTORY: Abnormal chest sound s. [facility] : 1940. TECHNIQUE: PA and lateral views of the chest. Co mparison: 09/14/2012. Heart size: Normal. Tortuous aorta. Lungs: No acute consolidation. Shallow inspirati on. Pleura: No pleural effusion. Mediastinum and elizabeth: Unremarkable. Skeletal: Unremarkable. IMPRESSION: 1. No active disease in the chest. 2016-01-11 19:46:17-00:00 CLINICAL HISTORY: Abnormal chest sound s. [facility] : 1940. TECHNIQUE: PA and lateral views of the chest. Co mparison: 09/14/2012. Heart size: Normal. Tortuous aorta. Lungs: No acute consolidation. Shallow inspirati on. Pleura: No pleural effusion. Mediastinum and elizabeth: Unremarkable. Skeletal: Unremarkable. IMPRESSION: 1. No active disease in the chest. 2016-01-11 19:46:17-00:00 CLINICAL HISTORY: Abnormal chest sound s. [facility] : 1940. TECHNIQUE: PA and lateral views of the chest. Co mparison: 09/14/2012. Heart size: Normal. Tortuous aorta. Lungs: No acute consolidation. Shallow inspirati on. Pleura: No pleural effusion. Mediastinum and elizabeth: Unremarkable. Skeletal: Unremarkable. IMPRESSION: 1. No active disease in the chest. 2016-01-11 19:46:17-00:00 [facility] TECHNIQUE: PA and lateral views of the chest. Co mparison: 09/14/2012. Heart size: Normal. Tortuous aorta. Lungs: No acute consolidation. Shallow inspirati on. Pleura: No pleural effusion. Mediastinum and elizabeth: Unremarkable. Skeletal: Unremarkable. IMPRESSION: 1. No active disease in the chest. 2014-03-25 10:11:00-00:00 EXAM: 2 views of the Cervical Spine [facility] DATE: Mar 25, 2014 10:21:43 AM [...] ACDF with no interval detrimental change 2014-03-25 10::-00:00 EXAM: 2 views of the Cervical Spine [facility] DATE: Mar 25, 2014 10:21:43 AM [...] ACDF with no interval detrimental change 2014-03-25 10::-:00 EXAM: 2 views of the Cervical Spine [facility] DATE: Mar 25, 2014 10:21:43 AM [...] EXAM: 2 views of the Cervical Spine [facility] DATE: Mar 25, 2014 10:21:43 AM [...] 11:58:24-00:00 EXAM: XR CERVICAL SPINE 2 VIEWS [facility] DATE: 2013-09-17 12:00:00 INDICATION: 723.4 Brachial [...] 11:58:24-00:00 EXAM: XR CERVICAL SPINE 2 VIEWS [facility] DATE: 2013-09-17 12:00:00 INDICATION: 723.4 Brachial [...] 11:58:24-00:00 EXAM: XR CERVICAL SPINE 2 VIEWS [facility] DATE: 2013-09-17 12:00:00 INDICATION: 723.4 Brachial [...] 11:58:24-00:00 EXAM: XR CERVICAL SPINE 2 VIEWS [facility] DATE: 2013-09-17 12:00:00 INDICATION: 723.4 Brachial [...] 09:34:07-00:00 EXAM: XR CERVICAL SPINE 3 VIEWS [facility] DATE: March 19, 2013 at 0908 [...] EXAM: XR CERVICAL SPINE 3 VIEWS [facility] DATE: March 19, 2013 at 0908 INDICATION: [...] EXAM: XR CERVICAL SPINE 3 VIEWS [facility] DATE: March 19, 2013 at 0908 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: [facility] 25, 2012, 0827 hours. INDICATION: [...] 08:45:00-00:00 [facility]AM: [facility] DATE: December 25, 2012, 0827 hours. INDICATION: [...] 08:45:00-00:00 EXAM: XR CERVICAL SPINE 2 VIEWS [facility] DATE: December 25, 2012, 0827 hours. [...] 2012-11-22 08:16:51-00:00 EXAM: CERVICAL SPINE 2 VIEWS [facility] DATE: November 22, 2012 0803 hours INDICATION: [...] 2012-11-22 08:16:51-00:00 EXAM: CERVICAL SPINE 2 VIEWS [facility] DATE: November 22, 2012 0803 hours INDICATION: [...] 2012-11-22 08:16:51-00:00 EXAM: CERVICAL SPINE 2 VIEWS [facility] DATE: November 22, 2012 0803 hours INDICATION: [...]
[2023-01-18] MEDS ORDERED: ONDANSETRON 4 MG/2 ML VIAL IV PRN (18:32)
[2023-01-18] MEDS ORDERED: D10W 250 ML BAG IV PRN (18:33)
[2023-01-18] MEDS ORDERED: GLUCAGON 1 MG/VIAL IM PRN (18:33)
[2023-01-18] MEDS ORDERED: SODIUM CHLORIDE 0.9% 10ML INJ IV PRN (18:34)
[2023-01-18] MEDS ORDERED: PANTOPRAZOLE 40 MG INJ IVP ONE (18:47)
[2023-01-18] MEDS ORDERED: NA CHLORIDE 0.9% 1,000 ML IV SCH (19:00)
[2023-01-18 19:18] LABS: Absolute Lymphocytes (CBC) 1.4 K/uL (0.7-4.9); Hematocrit 36.1 % (36.0-45.0); Lymphocytes % 17.6 % (15.3-44.8); MCV 88.1 fL (80-100); MPV 9.1 fL (7.6-11.3); Platelets 214 thou/uL (152-406)
[2023-01-18 19:38] LABS: Bilirubin Total 0.5 mg/dL (0.2-1.0); Magnesium 1.7 mg/dL (1.6-2.4); Potassium 3.5 mEq/L (3.5-5.1)
--- NOTE | 2023-01-18 19:46 | RAD REPORT ---
EXAM DESCRIPTION: US - Abdomen Exam Limited - 01/18/2023 7:25 pm CLINICAL HISTORY: nausea Abdominal COMPARISON: Abdomen Exam Limited dated 01/15/2023 FINDINGS: The gallbladder demonstrates small shadowing gallstones. No pericholecystic fluid or gallb ladder wall thickening. The common bile duct is mildly enlarged measuring 7 mm.. The liver demonstrates no findings of intrahepatic biliary dilatation. IMPRESSION: Cholelithiasis. Mildly prominent common duct measuring 7 mm. Consider follow-up MRCP for further evaluation.
[2023-01-18] MEDS: INSULIN -REGULAR HUMAN 50 UNIT/0.5 ML ML SQ SCH (21:00)
[2023-01-18] MEDS: D5 0.9 NS 1,000 ML IV SCH (21:44)
[2023-01-18] MEDS: carvediloL 12.5 MG TAB PO SCH (21:45)
[2023-01-18] MEDS: cloNIDine HCL 0.1 MG TAB PO SCH (21:45)
[2023-01-18] MEDS: ENOXAPARIN 40 MG/0.4 ML SQ SCH (21:45)
[2023-01-18] MEDS: HYDRALAZINE HCL 25 MG TABLET PO SCH (21:45)
[2023-01-18] MEDS: GABAPENTIN 300 MG CAP PO SCH (21:46)
[2023-01-19 00:35] LABS: Specific Gravity 1.006 (1.005-1.030); Urine Bacteria <20 /HPF (<20); Urine Bilirubin NEGATIVE (Negative); Urine Blood Negative (Negative); Urine Clarity Turbid (Clear); Urine Color Colorless (Yellow); Urine Glucose NEGATIVE (Negative); Urine Protein 1+ (Negative); Urine RBC <5 /HPF (None Seen); Urine Urobilinogen Normal (Normal)
[2023-01-19] MEDS: INSULIN -REGULAR HUMAN 50 UNIT/0.5 ML ML SQ SCH ×4 (07:30→21:00)
[2023-01-19] MEDS: PANTOPRAZOLE 40 MG INJ IVP SCH (08:37)
[2023-01-19] MEDS: VALSARTAN 160 MG TAB PO SCH (08:37)
[2023-01-19] MEDS: carvediloL 12.5 MG TAB PO SCH ×2 (08:38→21:00)
[2023-01-19] MEDS: GABAPENTIN 300 MG CAP PO SCH ×3 (08:38→21:10)
[2023-01-19] MEDS: cloNIDine HCL 0.1 MG TAB PO SCH ×3 (08:38→21:10)
[2023-01-19] MEDS: HYDRALAZINE HCL 25 MG TABLET PO SCH ×3 (08:38→21:11)
[2023-01-19] MEDS: D5 0.9 NS 1,000 ML IV SCH (10:40)
[2023-01-19] MEDS: CEFTRIAXONE 1,000 MG in NA CHLORIDE 0.9% 50 ML IVPB SCH ×2 (12:12→21:11)
--- NOTE | 2023-01-19 13:23 | HP ---
Date of Admission: 01/18/2023 Chief Complaint: Not feeling good, nausea, poor appetite. History Of Present Illness: This is an 82-year-old very pleasant female patient, came into office with her with lot of nausea, poor appetite, not feeling good and feeling very weak. As soon as I walked into the room at office today, she said "Dr. Paz, I'm dying." It was very difficult to get clear-cut history and details from her, but she was feeling very poorly. She had come to our emergency room on January 15 with all these complaints. 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 Iglesias's office today and they had scheduled outpatient HIDA scan, which is not due until January 31, but with her ongoing symptoms like this, the patient's and the patient decided to come see me today and after I evaluated her, decision was made to admit her to the hospital. I have reviewed her workup done in the emergency room on January 15, 2023 and I am definitely concerned about gallbladder pathology here. The patient denies any dysphagia or odynophagia. No fever or chills. No chest pain. No shortness of breath. Allergies: NO KNOWN ALLERGIES. Medications: List reviewed. Review of Systems: GI: As mentioned above. Constitutional: As mentioned above. All other systems reviewed and negative. Past Medical History: Significant for type 2 diabetes mellitus; hyperparathyroidism; COVID-19 infection in 2019; hypertension; hyperlipidemia; coronary artery disease; STEMI on December 12, 2019; carotid artery stenosis; osteoarthritis at multiple sites; gastroesophageal reflux disease; diverticulosis; and vitamin D deficiency. Past Surgical History: Tonsillectomy; coronary artery stent placement for STEMIon December 14, 2019; bilateral knee surgery; knee replacement surgery; back surgery; cervical spine surgery; shoulder surgery. Family History: Father , had COPD. Mother , had diabetes and heart disease. Social History: Negative for smoking or alcohol use. Physical Examination: Vital Signs: Blood pressure was 161/81, pulse 58, temperature 97.9, respiratory rate 16, weight 178.8 pounds, height 64 inches. General: The patient appears weaker than normal, not in any respiratory distress. HEENT: Head atraumatic, normocephalic. Conjunctivae nonerythematous. Sclerae white. Mouth, no thrush or edema noted. Ears/Nose, no mass, lesion, discharge noted. Neck: Supple. No JVD, lymph nodes, bruit, thyromegaly noted. Lungs: Bilateral good equal air entry. Clear to auscultation. No rhonchi. No rales. Heart: Normal heart sounds, no murmur or gallop. Abdomen: Soft, bowel sounds normal. No guarding, rigidity, tenderness, mass, hepatosplenomegaly, distention, or bruit noted. Extremities: No leg edema. No calf tenderness. Skin: No rash, ulcer, cellulitis. Lymphatics: No lymph node enlargement in neck, supraclavicular, infraclavicular region. Neuro: No focal neurological deficit. Chest: Unremarkable. External Genitalia: Deferred. Rectal: Deferred. Laboratory Data: After she was admitted to the hospital, WBC 7.9, hemoglobin 11.9, platelets 214. Sodium 139, potassium 3.5, chloride 106, bicarb 26, BUN 16, creatinine 0.99, glucose 83. Hemoglobin A1c 6.5. Liver function tests unremarkable. Urinalysis; leukocyte esterase 25, otherwise negative. Her limited ultrasound of right upper quadrant of abdomen today shows presence of gallstones, mildly prominent bile duct measuring 7 mm size. Otherwise, unremarkable ultrasound. On 01/15/2023, she had a CAT scan of abdomen and pelvis done, which was negative for any acute findings, presence of coronary artery calcifications, mild right-sided hydronephrosis with a dilated right renal pelvis, which is a chronic finding for her. No evidence of any kidney stone. There was 2.4 cm right adnexal cyst, which was also present in 2017 and has not changed over last several years. Abdominal ultrasound from January 15 shows gallbladder distention and 3 mm gallbladder polyp and chest x-ray from January 15 was negative. EKG from January 14 for sinus bradycardia, otherwise negative. Impression: 1. Gallstones. 2. Rule out acute cholecystitis. 3. Nausea secondary to above. 4. Generalized weakness secondary to above. 5. Coronary artery disease. 6. Hypertension. 7. Type 2 diabetes mellitus. 8. Hyperlipidemia. 9. Carotid artery stenosis, bilateral. 10. Gastroesophageal reflux disease. 11. Diverticulosis. 12. Osteoarthritis, multiple sites. Plan: We will go ahead and admit patient to hospital for further evaluation and management of this problem. The patient is appropriate for inpatient and is expected to spend 2 midnights in the hospital. We will consult General Surgeon, Dr. Brown. IV fluid will be given per order. We will give pain and nausea medication per order. DVT prophylaxis will be given using Lovenox. For hypertension, we will go ahead and continue antihypertensive medication. Monitor blood pressure, if necessary, adjust blood pressure medication. For her coronary artery disease, her home medications will be continued and for her hyperlipidemia, we will continue her statin therapy per order. Diabetes will be managed with insulin sliding scale. We will keep her n.p.o. after midnight and a HIDA scan was ordered to be done tomorrow. I will re-examine her tomorrow when I will visit her and details and plan of treatment discussed with the patient and her . MORIAH/MODL Voice ID: [id number]
[2023-01-19] MEDS ORDERED: BUPIVACAINE 0.25% PF 30 ML VIAL ONE (15:27)
--- NOTE | 2023-01-19 15:30 | RAD REPORT ---
EXAM DESCRIPTION: NM - Hepatobiliary System Imagin - 01/19/2023 3:21 pm CLINICAL HISTORY: Abdominal pain/nausea TECHNIQUE: The patient was administered 6.1 millicuries technetium Choletec intravenous and images o f the abdomen obtained for 90 minutes. The patient was unable to continue the exam due to pain. FINDINGS: Liver demonstrates prompt radiotracer uptake. No activity is seen within the gallbladder throughout the exam. There is prompt radiotracer activity within duodenum and small bowel. Common bile duct probably upper limits normal caliber IMPRESSION: Nonvisualization of the gallbladder throughout the 90 minutes of the exam. This can be s een with acute and chronic cholecystitis. The patient was unable to continue with the exam for delayed images
[2023-01-19] MEDS ORDERED: NA CHLORIDE 0.9% 1,000 ML ONE (15:53)
[2023-01-19] MEDS ORDERED: PIPER TAZO 3.375 GM in NA CHLORIDE 0.9% 100 ML IV ONE (16:00)
[2023-01-19] MEDS ORDERED: SUCCINYLCHOLINE 20 MG/ML (10 ML) IV ONE (16:05)
[2023-01-19] MEDS ORDERED: FENTANYL CITR 100 MCG/2 ML ONE (16:06)
[2023-01-19] MEDS ORDERED: propofoL 200 MG/20 ML VIAL IV ONE (16:06)
[2023-01-19] MEDS ORDERED: ROCURONIUM 50 MG/5 ML VIAL IV ONE (16:07)
[2023-01-19] MEDS ORDERED: GLYCOPYRROLATE 0.2 MG/ML SYR ONE ×2 (16:07→17:32)
[2023-01-19] MEDS ORDERED: MIDAZOLAM HCL 2 MG/2 ML INJ ONE (16:07)
[2023-01-19] MEDS ORDERED: NEOSTIGMINE 1 MG/ML -10 ML VIAL ONE (16:07)
[2023-01-19] MEDS ORDERED: LIDOCAINE 2% MPF 5 ML VIAL ONE (16:07)
[2023-01-19] MEDS ORDERED: ONDANSETRON 4 MG/2 ML VIAL ONE (16:07)
--- NOTE | 2023-01-19 17:29 | P.OP ---
Preoperative diagnosis: Cholecystitis with Cholelithisis Postoperative diagnosis: Cholecystitis with Cholelithisis Primary procedure: Laparoscopic Cholecystectomy with ICG Cholangiography Anesthesia: GETA + Local Estimated blood loss: < 5cc Specimen: Gallbladder Findings: Cholecystitis Complications: None Transferred to: Recovery Room Condition: Good
[2023-01-19 18:20] VITALS: O2SAT 96
[2023-01-19] MEDS: HYDROCODONE/APAP 7.5/325 MG TAB PO PRN (18:25)
--- NOTE | 2023-01-19 19:54 | PN ---
Date of Progress Note: 01/19/2023 Subjective: The patient was seen this morning for followup. She feels better than yesterday. Nause a is better. Today, she reported that she has been having right upper quadrant abdominal pain for 1 week. Yesterday, she really did not provide much history at all, but today she is able to think more clearly and tells me that this pain has been going on for last 1 week. Objective: Vital Signs: Reviewed. HEENT: Unremarkable. Lungs: Clear to auscultation. Heart: Sounds normal. Abdomen: Soft. Bowel sounds normal. No guarding, rigidity, distention. No rebound tenderness. Billy simons does have mild tenderness in right upper quadrant. Extremities: No leg edema. Laboratory Data: HIDA scan done today shows nonvisualization of the gallbladder, indicating cholecys titis. Impression: 1.Acute cholecystitis with gallstones. 2.Coronary artery disease. 3.Hypertension. 4.Hyperlipidemia. 5.Type 2 diabetes mellitus. 6.Osteoarthritis, multiple sites. Plan: We will go ahead and continue current IV fluid which is D5 normal saline. Continue current an tihypertensive medication, ceftriaxone 1 g every [address] Brown from [facility] has notified me that he will plan to take the patient to surgery today for laparoscopic cholecy stectomy. I will see her tomorrow for followup, possible discharge to go home tomorrow depending on her condition. MORIAH/MODL Voice ID: [id number] Report ID: [id number]
[2023-01-19] MEDS: MORPHINE 2 MG/ML SYR IV PRN (21:11)
[2023-01-19] MEDS: ENOXAPARIN 40 MG/0.4 ML SQ SCH (21:11)
--- NOTE | 2023-01-20 00:15 | OP ---
Date of Procedure: 01/19/2023 Surgeon: Karlos Brown MD, Preoperative Diagnoses: Cholecystitis with cholelithiasis. Postoperative Diagnoses: Cholecystitis with cholelithiasis. Procedure Performed: Laparoscopic cholecystectomy with indocyanine green cholangiography. Anesthesia: General endotracheal plus local with 0.25% Marcaine. Estimated Blood Loss: 5 cc. Specimen: Gallbladder. Findings: Cholecystitis. Complication: None. Disposition: Patient transferred to recovery room in good condition. Procedure In Detail: After informed consent was obtained, patient was brought to the operating room, prepped and draped in the usual sterile fashion. After adequate anesthesia was achieved, I incised an area of the supraumbilical position down to subcutaneous tissues. After appropriately anesthetizi ng the skin, 5 mm 0-degree optical trocar was introduced in the abdomen without evidence of complicat ion. Insufflation was obtained to 15 mmHg at this time. There was no injury to vital structures in the abdomen. Two additional trocars were placed, one in the epigastrium and one in right upper quadr ant. Both of these similarly anesthetized, sharply incised, 5 mm trocars placed under direct visuali zation without evidence of complication. At this point, the patient was positioned in the gallbladde r position, that was right-side head up position and I used a ratcheted grasper to grasp the patient' s gallbladder placed toward the right shoulder. I dissected down the Julio pouch of the gallbladd er, circumferentially dissected out 2 structures, identified as both cystic duct and cystic artery. These structures skeletonized at this point. The critical view of safety was obtained at this point and I performed ICG cholangiography to see confluence of the common duct cystic duct junction, which is visualized at this point. This common duct was a good distance away from a nice long cystic duct. At this point, the double titanium clips were placed doubly on the proximal side and singly on the distal side of both the cystic duct and cystic artery. The Endo Adriano were then used to ligate the 2 structures and the gallbladder was removed from the hepatic fossa without evidence of complication. The gallbladder was placed in EndoCatch bag, removed through the umbilical trocar, sent off for pat hologic examination. At this point, the abdomen was re-insufflated. I inspected the hepatic fossa. At this point, irrigated the area copiously. The AFO was completely clear. There was no spillage o f bile throughout the procedure. I performed ICG cholangiography. No leakage of bile was appreciate d at this point. At this point, the procedure was completed and as such, patient positioned in neutr al position. I sucked out the remaining effluent and I removed the 12 mm trocar and closed the 12 mm trocar site using a Antonio-Allison suture passer with 0 Vicryl in an interrupted fashion with good approximation of tissues. The abdomen was completely desufflated under direct visualization without evidence of complication. All remaining trocars were then copiously irrigated. All skin incisions w ere then closed with a 4-0 Monocryl in a running fashion. Dermabond placed over top. The patient to lerated the procedure well without evidence of complication and transferred to PACU in good condition . All counts were correct at the end of the case. BLAS/BRIAN Voice ID: [id number] Report ID: [id number]
[2023-01-20] MEDS: HYDROCODONE/APAP 7.5/325 MG TAB PO PRN (00:28)
[2023-01-20] MEDS: MORPHINE 2 MG/ML SYR IV PRN (01:27)
[2023-01-20 04:15] LABS: Hematocrit 37.2 % (36.0-45.0); MCV 89.6 fL (80-100); RBC Red Blood Cell Count 4.15 M/uL (3.86-4.86)
[2023-01-20 04:16] LABS: Absolute Lymphocytes (CBC) 1.3 K/uL (0.7-4.9); Lymphocytes % 16.3 % (15.3-44.8); MPV 9.2 fL (7.6-11.3); Platelets 212 thou/uL (152-406)
[2023-01-20 04:55] LABS: Albumin 2.8 g/dL (3.4-5.0); Bilirubin Total 0.3 mg/dL (0.2-1.0); Potassium 3.7 mEq/L (3.5-5.1); Protein, Total 5.7 g/dL (6.4-8.2)
[2023-01-20] MEDS: D5 0.9 NS 1,000 ML IV SCH (07:23)
[2023-01-20] MEDS: INSULIN -REGULAR HUMAN 50 UNIT/0.5 ML ML SQ SCH (07:30)
[2023-01-20] MEDS: CEFTRIAXONE 1,000 MG in NA CHLORIDE 0.9% 50 ML IVPB SCH (08:49)
[2023-01-20] MEDS: HYDRALAZINE HCL 25 MG TABLET PO SCH (08:52)
[2023-01-20] MEDS: cloNIDine HCL 0.1 MG TAB PO SCH (08:52)
[2023-01-20] MEDS: GABAPENTIN 300 MG CAP PO SCH (08:53)
[2023-01-20] MEDS: VALSARTAN 160 MG TAB PO SCH (08:53)
[2023-01-20] MEDS: carvediloL 12.5 MG TAB PO SCH (08:53)
[2023-01-20] MEDS: PANTOPRAZOLE 40 MG INJ IVP SCH (08:54)
[2023-01-20 11:53] VITALS: BP 124/62; TEMP 97.4
--- NOTE | 2023-01-20 12:09 | DS ---
Date of Discharge: 01/20/2023 Disposition: Discharged to go home. Physical Examination: Lungs: Clear to auscultation. Cardiac: Heart sounds normal. Abdomen: Soft. Bowel sounds normal. No guarding, rigidity, tenderness, distention. Surgical scar present from laparoscopic cholecystectomy done yesterday. No evidence of any gapping, redness or discharge from the surgical site. Extremities: No leg edema. Laboratory Data: Upon admission on 01/18/2023, white count 7.9, hemoglobin 11.9, platelets 214. Today, white count 8, hemoglobin 12, platelets 212. Chemistry from today: Sodium 143, potassium 3.7, bicarb 27, BUN 10, creatinine 0.85, glucose 176. Liver function tests unremarkable. Upon admission, sodium 139, potassium 3.5, chloride 106, bicarb 26, BUN 16, creatinine 0.99, glucose 83. Hemoglobin A1c 6.5. Liver function tests unremarkable. Hospital Course: This is an 82-year-old pleasant female patient admitted to the hospital after she came into our office and was evaluated with vague complaints of not feeling good, nausea, and having poor appetite. Please see dictated H and P for more information. Patient had a visit to emergency room on January 15 and ER visit records reviewed including lab results abdominal ultrasound and CAT scan and her gallbladder appeared to be distended on the ultrasound. I was concerned about acute cholecystitis as her underlying reason for not feeling good, so we decided to admit her to hospital, and after she was admitted to the hospital, General Surgery consultation was requested from Dr. Brown and patient had a HIDA scan done day after admission. On the day of admission, we repeated right upper quadrant abdominal ultrasound, which showed small gallstones, common bile duct 7 mm in size. HIDA scan was abnormal, consistent with cholecystitis, so Dr. Brown performed laparoscopic cholecystectomy yesterday, and postoperatively, patient is feeling much better. This morning when I saw her, she is feeling a lot better and denies any complaints. She has some pain medication and nausea medication at home, so she really will not need any new prescriptions for that. She tolerated breakfast very well this morning, and medically, she is stable for discharge. Her blood pressure this morning, systolic blood pressure was around 204, but after she took her morning dose of blood pressure medication, last blood pressure prior to discharge was around 124 systolic blood pressure. Patient will be discharged to go home in stable condition. Final Diagnoses: 1. Acute cholecystitis with gallstones. 2. Nausea secondary to above. 3. Generalized weakness secondary to above. 4. Coronary artery disease. 5. Hypertension. 6. Type 2 diabetes mellitus. 7. Hyperlipidemia. 8. Carotid artery stenosis, bilateral. 9. Gastroesophageal reflux disease. 10. Diverticulosis. 11. Osteoarthritis, multiple sites. Discharge Medications And Instructions: 1. Continue all prior home medications. 2. Follow up at my office next week on Sunday or . 3. Follow up with Dr. Brown in 1 to 2 weeks. 4. Take Augmentin 875 mg. Patient to take 1 tablet 2 times a day with food for 1 week. MORIAH/MODL Voice ID: [id number] Report ID: [id number] MTDD
== END 2023-01-20 11:30 | disposition home or self-care (01) | DRG 418 ==
LOC: 2ND 14:42
PROVIDERS: ADMIT Internal Medicine; ATTEND Internal Medicine
PROC: BF52200 Other Imaging of Gallbladder using Fluorescing Agent, Indocyanine Green Dye, Intraoperative (ICD-10-PCS; 2023-01-19)
PROC: 0FT44ZZ Resection of Gallbladder, Percutaneous Endoscopic Approach (ICD-10-PCS; principal; 2023-01-19 12:45)
DX: K80.00 Calculus of gallbladder with acute cholecystitis without obstruction (principal); E44.0 Moderate protein-calorie malnutrition; I10 Essential (primary) hypertension; E78.5 Hyperlipidemia, unspecified; K21.9 Gastro-esophageal reflux disease without esophagitis; M19.09 Primary osteoarthritis, other specified site; I65.23 Occlusion and stenosis of bilateral carotid arteries; K57.90 Diverticulosis of intestine, part unspecified, without perforation or abscess without bleeding; I25.10 Atherosclerotic heart disease of native coronary artery without angina pectoris; I25.2 Old myocardial infarction; Z95.5 Presence of coronary angioplasty implant and graft; Z68.29 Body mass index [BMI] 29.0-29.9, adult; Z86.16 Personal history of COVID-19; Z96.659 Presence of unspecified artificial knee joint
CPT/HCPCS: 36415; 76705; 78226; 80053; 81001; 82947; 83036; 83605; 83735; 85025; 88304; 97116; 97161; 97530; A9537; C9113; J0696; J1650; J2001; J2250; J2270; J2405; J2543; J2704; J2710; J3010; J7030; J7042

== ENCOUNTER 2023-03-01 18:06 | Inpatient (IN) | payer OTHER ==
--- NOTE | 2023-03-01 18:28 | RAD REPORT ---
EXAM DESCRIPTION: CT - Ct Stroke Brain Wo Cont - 03/01/2023 6:21 pm CLINICAL HISTORY: STROKE ALERT Headache, drowsiness, CVA symptomology COMPARISON: HEAD BRAIN W O CONTRAST dated 09/25/2012; HEAD BRAIN W O CONTRAST dated 09/14/2012; C Spin e Wo Con dated 09/29/2022 TECHNIQUE: All CT scans are performed using dose optimization technique as appropriate and may inclu de automated exposure control or mA/KV adjustment according to patient size. FINDINGS: No intracranial hemorrhage, hydrocephalus or extra-axial fluid collection.No areas of brai n edema or evidence of midline shift. Mild vertebral atherosclerosis. The paranasal sinuses and mastoids are clear. The calvarium is intact. IMPRESSION: No acute intracranial abnormality. If there is continued clinical concern for CVA, MR imaging of the brain would be recommended. The findings were discussed with Dr. Dumont in the ER On 03/01/2023 at 6:23 p.m. by telephone.
--- NOTE | 2023-03-01 19:03 | RAD REPORT ---
EXAM DESCRIPTION: RAD - Chest Single View - 03/01/2023 6:57 pm CLINICAL HISTORY: CVA Chest pain. COMPARISON: <Comparisons> FINDINGS: Portable technique limits examination quality. The lungs are grossly clear. The heart is normal in size. No displaced fractures. IMPRESSION: No acute intrathoracic process suspected.
[2023-03-01 20:24] LABS: Absolute Lymphocytes (CBC) 1.2 K/uL (0.7-4.9); Hematocrit 42.1 % (36.0-45.0); Lymphocytes % 15.3 % (15.3-44.8); MCV 89.5 fL (80-100); MPV 8.8 fL (7.6-11.3); Platelets 225 thou/uL (152-406); RBC Red Blood Cell Count 4.71 M/uL (3.86-4.86)
[2023-03-01 20:32] LABS: Protime INR 1.05
[2023-03-01 20:46] LABS: Albumin 3.6 g/dL (3.4-5.0); Bilirubin Direct 0.2 mg/dL (0-0.2); Bilirubin Indirect, Calculated 0.4 mg/dL (0.2-0.8); Bilirubin Total 0.6 mg/dL (0.2-1.0); Magnesium 1.8 mg/dL (1.6-2.4); Potassium 4.5 mEq/L (3.5-5.1); Protein, Total 7.2 g/dL (6.4-8.2); Troponin High Sensitivity 18.9 pg/mL (<58.9)
--- NOTE | 2023-03-01 21:00 | ER ---
Nurse's Notes [facility] Name: Kate Love Age: 82 yrs Sex: Female : 1940 Arrival Date: 03/01/2023 Time: 18:06 Bed [id number] Private MD: Diagnosis: Acute CVA Presentation: 03/01 18:45 Chief complaint: EMS states: Pt from home, family called 911 for AMS, loss of ability ph to speak in sentences and R sided facial droop, last seen normal believed to be at approx 1600, BGL 180s. Coronavirus screen: Vaccine status: Patient reports receiving the 2nd dose of the covid vaccine. Initial Sepsis Screen: Does the patient meet any 2 criteria? No. Patient's initial sepsis screen is negative. Does the patient have a suspected source of infection? No. Patient's initial sepsis screen is negative. Risk Assessment: Do you want to hurt yourself or someone else? Patient reports no desire to harm self or others. Onset of symptoms. 18:45 Method Of Arrival: EMS: [facility] ph 18:45 Acuity: AURELIA 2 ph 22:40 Ebola Screen: No symptoms or risks identified at this time. jw7 Triage Assessment: 19:20 General: Appears in no apparent distress. Behavior is calm, cooperative. Pain: Denies ph pain. Neuro: Level of Consciousness is awake, alert, obeys commands, Oriented to person, place. Cardiovascular: Capillary refill < 3 seconds in bilateral fingers Patient's skin is warm and dry. Respiratory: Airway is patent Respiratory effort is even, unlabored, Respiratory pattern is regular, symmetrical. Historical: - Allergies: 19:20 No Known Allergies; ph - PMHx: 19:20 Asthma; cardiac stent x2; Diabetes - IDDM; Hyperlipidemia; Hypertension; Myocardial ph infarction; - Immunization history:: Adult Immunizations up to date, Client reports receiving the 2nd dose of the Covid vaccine, Flu vaccine is up to date. - Social history:: Smoking status: Patient denies any tobacco usage or history of. - Family history:: not pertinent. Screenin:30 Abuse screen: Denies threats or abuse. Denies injuries from another. Nutritional ph screening: No deficits noted. Tuberculosis screening: No symptoms or risk factors identified. 22:27 [place] Swallow Protocol Exclusion Criteria: Brief Cognitive Screen What is your name? jw7 Normal, Where are you right now? Normal, What year is it? Normal. Oral Mechanism Examination Facial Symmetry: Normal, Motion: Normal, Lip Closure: Normal, Oral Mechanism Result: Normal. 3 oz Water Swallow Challenge: Pt able to drink all water without stopping, coughing, choking or throat clearing: Yes Result: PASS. 22:42 [facility] ED Fall Risk Assessment (Adult) History of falling in the last 3 months, jw7 including since admission No falls in past 3 months (0 pts) Confusion or Disorientation No (0 pts) Intoxicated or Sedated No (0 pts) Impaired Gait Yes (1 pt) Mobility Assist Device Used Yes (1 pt) Altered Elimination Yes (1 pt) Score/Fall Risk Level 3 or more points = High Risk Oriented to surroundings, Maintained a safe environment, Educated pt \T\ family on fall prevention, incl call for assistance when getting out of bed. Assessment: 19:30 General: see triage assessment. jw7 20:00 Reassessment: Patient appears in no apparent distress at this time. No changes from [facility] previously documented assessment. Patient and/or family updated on plan of care and expected duration. Pain level reassessed. Patient is alert, oriented x 3, equal unlabored respirations, skin warm/dry/pink. 21:00 Reassessment: Patient appears in no apparent distress at this time. No changes from 7 previously documented assessment. Patient and/or family updated on plan of care and expected duration. Pain level reassessed. Patient is alert, oriented x 3, equal unlabored respirations, skin warm/dry/pink. 22:00 Reassessment: Patient appears in no apparent distress at this time. No changes from [facility] previously documented assessment. Patient and/or family updated on plan of care and expected duration. Pain level reassessed. Patient is alert, oriented x 3, equal unlabored respirations, skin warm/dry/pink. 23:35 Reassessment: Patient appears in no apparent distress at this time. Patient and/or jw7 family updated on plan of care and expected duration. Pain level reassessed. Patient is alert, oriented x 3, equal unlabored respirations, skin warm/dry/pink. 23:52 General: report given to JENNIE Carranza . 7 Vital Signs: 19:29 BP 222 / 87; Pulse 72; Resp 20; Pulse Ox 98% ; Weight 77.11 kg; Height 5 ft. 8 in. ; ph 21:30 BP 221 / 81; Pulse 89; Resp 20 S; Pulse Ox 97% on R/A; jw7 22:15 BP 214 / 85; Pulse 82; Resp 17 S; Pulse Ox 94% on R/A; jw7 23:00 BP 201 / 86; Pulse 85; Resp 20; Pulse Ox 94% ; jw7 19:29 Body Mass Index 25.85 (77.11 kg, 172.72 cm) ph NIH Stroke Scale Scores: 23:00 NIHSS Score: 5 jw7 ED Course: 18:09 Patient arrived in ED. kj1 18:09 Miguelito Schuler MD is Attending Physician. rt 18:11 Jordyn Gonzalez, RN is Primary Nurse. ph 18:21 CT Stroke Brain w/o Contrast In Process Unspecified. EDMS 18:51 Missed attempt(s): 22 gauge in left in right forearm. Bleeding controlled, band aid ll1 applied, catheter tip intact. 18:59 Stroke CXR 1 View In Process Unspecified. EDMS 19:20 Triage completed. ph 19:21 Arm band placed on Patient placed in an exam room, on a stretcher. ph 19:30 Patient has correct armband on for positive identification. Bed in low position. Call ph light in reach. Side rails up X 1. Client placed on continuous cardiac and pulse oximetry monitoring. NIBP monitoring applied. Warm blanket given. 20:00 EKG done, by ED staff, reviewed by Miguelito Schuler MD. jw7 20:17 Inserted saline lock: 20 gauge in left upper arm, using aseptic technique. Blood kd3 collected. 20:59 Richy Shipley MD is Hospitalizing Provider. rt 21:05 CT Head Angio In Process Unspecified. EDMS 21:05 CT Neck Angio In Process Unspecified. EDMS 23:42 No provider procedures requiring assistance completed. jw7 23:42 Provided Education on: need for admit. jw7 23:53 Patient admitted, IV remains in place. jw7 Administered Medications: 22:27 Drug: Aspirin PO 325 mg Route: PO; jw7 23:41 Follow up: Response: No adverse reaction jw7 22:27 Drug: Labetalol IV 10 mg Route: IV; Rate: calculated rate; Site: left antecubital; jw7 23:41 Follow up: Response: No adverse reaction; IV Status: Completed infusion; IV Intake: 2ml jw7 23:35 Drug: cloNIDine PO 0.1 mg Route: PO; jw7 23:42 Follow up: Response: No adverse reaction jw7 23:35 Drug: carvedilol PO 12.5 mg Route: PO; jw7 23:42 Follow up: Response: No adverse reaction jw7 Medication: 19:30 VIS not applicable for this client. ph Intake: 23:41 IV: 2ml; Total: 2ml. jw7 Outcome: 20:59 Decision to Hospitalize by Provider. rt 23:52 Admitted to Tele accompanied by tech, family with patient, via wheelchair, room 430, [facility] with chart, Report called to JENNIE Carranza 23:52 Condition: stable 23:52 Discharge instructions given to patient, family, Instructed on the need for admit, Demonstrated understanding of instructions. 03/02 03:02 Patient left the ED. as6 NIH Stroke Scale - NIH Stroke Score Date: 03/01/2023 Time: 23:00 Total Score = 5 10. Dysarthria (speech clarity - read or repeat words) - 1(Mild to Moderate) 11. Extinction and Inattention (visual/tactile/auditory/spatial/personal) - 0(No abnormality) 1a. Level of Consciousness (LOC) - 0(Alert) 1b. Level of Consciousness (LOC) (Month \T\ Age) - 0(Both) 1c. LOC Commands (Open \T\ Closes Eyes/[place]) - 0(Both) 2. Best Gaze (Lateral Gaze Paresis) - 0(Normal) 3. Visual Field Loss - 0(No visual loss) 4. Facial Palsy - 1(Minor Paralysis) 5a. Left Arm: Motor (10-second hold) - 0(No drift) 5b. Right Arm: Motor (10-second hold) - 1(Drift) 6a. Left Leg: Motor (5-second hold - always test supine) - 0(No drift) 6b. Right Leg: Motor (5-second hold - always test supine) - 1(Drift) 7. Limb Ataxia (finger/nose \T\ heel/walters - test with eyes open) - 0(Absent) 8. Sensory Loss (pinprick arms/legs/face) - 0(Normal) 9. Best Language: Aphasia (description/naming/reading) - 1(Mild to moderate aphasia) Initials: [facility] Signatures: Dispatcher [employer] EDJordyn Mosqueda RN RN wade Mcgill, Nohemi kj1 Sheldon Osorio, RN RN ll1 Yevgeniy Metzger, JENNIE RN as6 Cady Wall RN RN kd3 Vidhya Mckay RN RN jw7 Miguelito Schuler MD MD rt Corrections: (The following items were deleted from the chart) 03/01 22:38 19:00 General: see triage assessment. jw7 jw7
--- NOTE | 2023-03-01 21:00 | EDPHYS ---
Physician Documentation [facility] Name: Kate Love Age: 82 yrs Sex: Female : 1940 Arrival Date: 03/01/2023 Time: 18:06 Bed IW10 Private MD: ED Physician Miguelito Schuler HPI: 03/01 20:43 This 82 yrs old Female presents to ER via EMS with complaints of Strokelike symptom. rt 20:43 Patient presents to the ED with strokelike symptoms. The symptoms apparently were first rt noticed yesterday at 4 PM. It was noted that patient was having difficulty speaking as well as some confusion. History is limited at this time due to apparent aphasia, history mostly obtained per the patient's . The symptoms had apparently resolved, worsened again today at about 4 PM again. Denies aggravating or alleviating factors. Symptoms are moderate in severity.. Historical: - Allergies: 19:20 No Known Allergies; ph - PMHx: 19:20 Asthma; cardiac stent x2; Diabetes - IDDM; Hyperlipidemia; Hypertension; Myocardial ph infarction; - Immunization history:: Adult Immunizations up to date, Client reports receiving the 2nd dose of the Covid vaccine, Flu vaccine is up to date. - Social history:: Smoking status: Patient denies any tobacco usage or history of. - Family history:: not pertinent. ROS: 20:43 Unable to obtain ROS due to Patient with aphasia. rt Exam: 20:43 Constitutional: This is a well developed, well nourished patient who is awake, alert, rt and in no acute distress. Head/Face: Normocephalic, atraumatic. Chest/axilla: Normal chest wall appearance and motion. Nontender with no deformity. No lesions are appreciated. Cardiovascular: Regular rate and rhythm with a normal S1 and S2. No gallops, murmurs, or rubs. Normal PMI, no JVD. No pulse deficits. Respiratory: Lungs have equal breath sounds bilaterally, clear to auscultation and percussion. No rales, rhonchi or wheezes noted. No increased work of breathing, no retractions or nasal flaring. Abdomen/GI: Soft, non-tender, with normal bowel sounds. No distension or tympany. No guarding or rebound. No evidence of tenderness throughout. Skin: Warm, dry with normal turgor. Normal color with no rashes, no lesions, and no evidence of cellulitis. MS/ Extremity: Pulses equal, no cyanosis. Neurovascular intact. Full, normal range of motion. 20:43 ECG was reviewed by the Attending Physician. 20:43 Neuro: Right-sided facial droop, seems to move all 4 extremities equally. Unable to test sensation. Aphasia noted.. Vital Signs: 19:29 BP 222 / 87; Pulse 72; Resp 20; Pulse Ox 98% ; Weight 77.11 kg; Height 5 ft. 8 in. ; ph 21:30 BP 221 / 81; Pulse 89; Resp 20 S; Pulse Ox 97% on R/A; jw7 22:15 BP 214 / 85; Pulse 82; Resp 17 S; Pulse Ox 94% on R/A; jw7 23:00 BP 201 / 86; Pulse 85; Resp 20; Pulse Ox 94% ; jw7 19:29 Body Mass Index 25.85 (77.11 kg, 172.72 cm) ph NIH Stroke Scale Scores: 23:00 NIHSS Score: 5 jw7 MDM: 18:09 Patient medically screened. rt 21:01 Differential Diagnosis CVA, large vessel occlusion. Data reviewed: vital signs, nurses rt notes, lab test result(s), EKG, radiologic studies. Consideration of Admission/Observation Patient was admitted/placed on observation. Management of patient was discussed with the following: Hospitalist: Agrees to admit. I considered the following discharge prescriptions or medication management in the emergency department Medications were administered in the Emergency Department. See MAR Onset of symptoms greater than 24 hours, patient is not a tPA candidate. Independent interpretation of the following test(s) in the Emergency Department CT Scan: My interpretation is No hemorrhage seen on interpretation of the CT scan image. Care significantly affected by the following chronic conditions: Diabetes, Hypertension. Counseling: I had a detailed discussion with the patient and/or guardian regarding the historical points, exam findings, and any diagnostic results supporting the discharge/admit diagnosis, lab results, radiology results, the need for further work-up and treatment in the hospital. Response to treatment: There is no appreciated change of the patient's symptoms at this time. 03/01 18:10 Order name: Basic Metabolic Panel; Complete Time: 20:49 rt 03/01 18:10 Order name: CBC with Diff; Complete Time: 20:49 rt 03/01 18:10 Order name: Hepatic Function; Complete Time: 20:49 rt 03/01 18:10 Order name: High Sensitivity Troponin; Complete Time: 20:49 rt 03/01 18:10 Order name: Magnesium; Complete Time: 20:49 rt 03/01 18:10 Order name: Protime (+inr); Complete Time: 20:49 rt 03/01 18:10 Order name: Ptt, Activated; Complete Time: 20:49 rt 03/02 00:27 Order name: Glucose, Ancillary Testing; Complete Time: 05:20 EDMS 03/01 18:10 Order name: CT Stroke Brain w/o Contrast; Complete Time: 18:43 rt 03/01 18:10 Order name: Stroke CXR 1 View; Complete Time: 20:49 rt 03/01 18:10 Order name: CT Head Angio; Complete Time: 21:17 rt 03/01 18:10 Order name: CT Neck Angio; Complete Time: 21:18 rt 03/01 18:10 Order name: EKG; Complete Time: 18:11 rt 03/01 18:10 Order name: Accucheck; Complete Time: 20:54 rt 03/01 18:10 Order name: Cardiac monitoring; Complete Time: 19:46 rt 03/01 18:10 Order name: EKG - Nurse/Tech; Complete Time: 20:00 rt 03/01 18:10 Order name: IV Saline Lock; Complete Time: 20:28 rt 03/01 18:10 Order name: Labs collected and sent; Complete Time: 20:28 rt 03/01 18:10 Order name: NPO; Complete Time: 19:22 rt 03/01 18:10 Order name: O2 Per Protocol; Complete Time: 19:22 rt 03/01 18:10 Order name: O2 Sat Monitoring; Complete Time: 19:22 rt 03/01 18:10 Order name: Stroke Swallow Screen; Complete Time: 22:27 rt EC:43 Rate is 67 beats/min. Rhythm is regular, Normal Sinus Rhythm with No ectopy. QRS [place] rt is Normal. OR interval is normal. QRS interval is normal. QT interval is normal. No Q waves. Clinical impression: NSR w/ Non-specific ST/T Changes. Administered Medications: :27 Drug: Aspirin PO 325 mg Route: PO; jw7 23:41 Follow up: Response: No adverse reaction jw7 22:27 Drug: Labetalol IV 10 mg Route: IV; Rate: calculated rate; Site: left antecubital; jw7 23:41 Follow up: Response: No adverse reaction; IV Status: Completed infusion; IV Intake: 2ml 23:35 Drug: cloNIDine PO 0.1 mg Route: PO; jw7 23:42 Follow up: Response: No adverse reaction jw7 23:35 Drug: carvedilol PO 12.5 mg Route: PO; 7 23:42 Follow up: Response: No adverse reaction jw7 Disposition Summary: 03/01/23 20:59 Hospitalization Ordered Hospitalization Status: Observation rt Provider: Richy Shipley rt Location: Telemetry/MedSurg (observation) rt Condition: Stable rt Problem: new rt Symptoms: are unchanged rt Bed/Room Type: Standard rt Room Assignment: 430(03/01/23 23:01) Diagnosis - Acute CVA rt Forms: - Medication Reconciliation Form rt - SBAR form rt - Leadership Thank You Letter rt NIH Stroke Scale - NIH Stroke Score Date: 03/01/2023 Time: 23:00 Total Score = 5 10. Dysarthria (speech clarity - read or repeat words) - 1(Mild to Moderate) 11. Extinction and Inattention (visual/tactile/auditory/spatial/personal) - 0(No abnormality) 1a. Level of Consciousness (LOC) - 0(Alert) 1b. Level of Consciousness (LOC) (Month \T\ Age) - 0(Both) 1c. LOC Commands (Open \T\ Closes Eyes/Fruit Canner) - 0(Both) 2. Best Gaze (Lateral Gaze Paresis) - 0(Normal) 3. Visual Field Loss - 0(No visual loss) 4. Facial Palsy - 1(Minor Paralysis) 5a. Left Arm: Motor (10-second hold) - 0(No drift) 5b. Right Arm: Motor (10-second hold) - 1(Drift) 6a. Left Leg: Motor (5-second hold - always test supine) - 0(No drift) 6b. Right Leg: Motor (5-second hold - always test supine) - 1(Drift) 7. Limb Ataxia (finger/nose \T\ heel/walters - test with eyes open) - 0(Absent) 8. Sensory Loss (pinprick arms/legs/face) - 0(Normal) 9. Best Language: Aphasia (description/naming/reading) - 1(Mild to moderate aphasia) Initials: jw7 Signatures: Dispatcher [employer] EDAlex Gunter MD MD rn Fermin Moreira, EMBLEM MAKER-C EMBLEM MAKER-Cla1 Jordyn Gonzalez RN RN Barbie Mensah RN RN cg Vidhya Mckay RN RN jw7 Miguelito Schuler MD MD rt Corrections: (The following items were deleted from the chart) 23:01 20:59 rt cg
--- NOTE | 2023-03-01 21:14 | RAD REPORT ---
EXAM DESCRIPTION: CT - Head angio - 03/01/2023 9:03 pm CLINICAL HISTORY: cva Headache, drowsiness, CVA symptomology COMPARISON: Ct Stroke Brain Wo Cont dated 03/01/2023; HEAD BRAIN W O CONTRAST dated 09/25/2012; Neck A ngio dated 03/01/2023 TECHNIQUE: CT angiography of the head was performed with MIPs. All CT scans are performed using dose optimization technique as appropriate and may include automated exposure control or mA/KV adjustment according to patient size. FINDINGS: No evidence of large vessel occlusion. No evidence of aneurysm is detected. No flow-limiti ng stenosis or vascular malformation identified. Antegrade flow is seen in the vertebral arteries. The vertebral arteries are codominant. Mild focal s tenosis proximal left intracranial vertebral. The visualized dural venous sinuses are patent. IMPRESSION: No significant flow abnormality is detected.
--- NOTE | 2023-03-01 21:17 | RAD REPORT ---
EXAM DESCRIPTION: CT - Neck Angio - 03/01/2023 9:03 pm CLINICAL HISTORY: cva Headache, drowsiness, CVA symptomology COMPARISON: C Spine Wo Con dated 09/29/2022; Head C Spine Mpr Wo Con dated 06/08/2017; Thoracic Spine W/o Cont dated 06/08/2017; [id number] dated 08/18/2012 TECHNIQUE: CT angiography of the neck vessels was performed with MIPs. All CT scans are performed using dose optimization technique as appropriate and may include automated exposure control or mA/KV adjustment according to patient size. FINDINGS: A left aortic arch is identified with normal three vessel configuration of the great vesse ls. No significant flow abnormality is seen of the common carotid bilaterally. Moderate hard plaque involves the left carotid bulbs resulting in 50% stenosis. Moderate to heavy malcolm d plaque right carotid bulb results in 70% stenosis. Normal flow is seen within both vertebral arteries. IMPRESSION: Moderate hard plaquing involving both carotid bulbs, more severe on the right. 70% stenosis based on NASCET criteria right carotid bulb. NASCET criteria used. Mild 0-49% stenosis Moderate 50-69% stenosis Severe 70-99% stenosis
[2023-03-01] MEDS ORDERED: ASPIRIN EC 325 MG TABLET PO ONE (22:23)
[2023-03-01] MEDS ORDERED: LABETALOL 20 MG/4ML SYRINGE IV ONE (22:23)
[2023-03-01] MEDS ORDERED: carvediloL 6.25 MG TAB ONE (23:42)
[2023-03-01] MEDS ORDERED: cloNIDine HCL 0.1 MG TAB ONE (23:43)
[2023-03-02] MEDS ORDERED: ONDANSETRON 4 MG/2 ML VIAL IV PRN (00:18)
[2023-03-02] MEDS ORDERED: ACETAMINOPHEN 500 MG TAB PO PRN (00:18)
[2023-03-02] MEDS ORDERED: HYDRALAZINE HCL 20 MG/ML VIAL IV PRN (00:18)
--- NOTE | 2023-03-02 00:20 | P.HP ---
Certification for Inpatient Patient admitted to: Inpatient With expected LOS: >2 Midnights Patient will require the following post-hospital care: None Practitioner: I am a practitioner with admitting privileges, knowledge of patient current condition, hospital course, and medical plan of care. Services: Services provided to patient in accordance with Admission requirements found in Title 42 Section 412.3 of the Code of Federal Regulations Patient History Date of Service: 03/01/23 Reason for admission: CVA History of Present Illness: 82-year-old female with history of asthma, CAD with previous stents, insulin- dependent diabetes, hypertension, hyperlipidemia presents the emergency department with concern for confusion, changes in speech. Her who is now at bedside reports that yesterday on 02/28/2023 at approximately 1700 she developed similar symptoms including difficulty finding her words and confusion which lasted for approximately 1 hour. He reports that her symptoms resolved but again returned today, last known well at about 1600. She is unable to speak in full sentences and appears to be having difficulty with speech, some mild right-sided facial droop, difficulty following commands. Patient was evaluated in the emergency department with CT of her head noncontrast which was negative for acute findings CT head and neck angiogram, head without large vessel occlusion, neck showed moderate stenosis bilaterally worse on the right approximate 70% carotid bulb stenosis. Her blood pressure was markedly elevated 222 systolic over 87, Case was discussed with neurology who does recommend we get slightly better control of her blood pressure. She did pass her swallow screen and was given her dose of her home blood pressure medications this evening. NIH score is 5 currently. She will be admitted for suspected ischemic CVA. Allergies No Known Allergies Allergy (Verified 05/18/20 01:30) Home Medications: Cholecalciferol (Vitamin D3) [Vitamin D 1000 Iu Tab*] 1,000 unit PO DAILY 01/21/16 Furosemide [Lasix*] 20 mg PO DAILY tab 03/07/16 Aspirin 81 mg PO DAILY 05/18/20 Biotin 5,000 mcg PO DAILY 05/18/20 Cinacalcet HCl 30 mg PO BEDTIME 05/18/20 Gabapentin 300 mg PO TID 05/18/20 Ubidecarenone [Co Q-10] 200 mg PO NOON 05/18/20 Ezetimibe [Zetia*] 10 mg PO NOON 07/13/22 Linagliptin/Metformin HCl [Jentadueto Xr 5 mg-1,000 mg Tb] 1 each PO 1200 07/13/22 Pitavastatin Calcium [Livalo] 4 mg PO BEDTIME 07/13/22 Polyethylene Glycol 3350 [Miralax] 17 gm PO DAILYPRN PRN 07/13/22 cloNIDine HCL [Clonidine HCl] 0.1 mg PO TID 07/13/22 Docusate/Senna [Senokot-S*] 2 tab PO BID tab 07/21/22 Glucerna Shake [Glucerna*] 237 ml PO BID can 07/21/22 Hydrocodone 5/APAP 325 [[place] 5/325*] 1 tab PO Q6H PRN tab 07/21/22 carvediloL [Coreg*] 12.5 mg PO BID tab 07/21/22 Hydralazine [Apresoline*] 25 mg PO TID 01/18/23 Insulin -Regular Human [Novolin -R*] See Protocol SQ ACHS 01/18/23 Insulin Glargine/Lixisenatide [[place] 100 Unit-33 Mcg/ml Pen] 30 unit SQ DAILY 01/18/23 Omeprazole 20 mg PO DAILY 01/18/23 Valsartan 320 mg PO DAILY 01/18/23 - Past Medical/Surgical History Diabetic: Yes -: hypertension, -: diabetes-NIDDM, -: CAD, carotid artery stenosis -: hyperlipidemia -: osteoarthritis -: peripheral neuropathy -: GERD -: Diverticulosis -: lumbar spondylosis/ radiculopathy -: lumbar stenosis -: Tonsillectomy -: Right knee replacement(2013) -: anterior cervical discectomy -: L2-L5 Decompressive laminectomies & bilateral foraminotomies 02/08/16 -: left knee replacement (2014) -: abd laparotomy for colon tear -: rectal abscess I&D 2009 Psychosocial/ Personal History: Patient lives at home with her - Family History Mother -: Heart disease, Hypertension Notes: already - Social History Smoking Status: Never smoker Alcohol use: No CD- Drugs: No Caffeine use: No Place of Residence: Home Review of Systems is unable to be obtained (trouble communicating) Physical Examination - Physical Exam General: Alert, In no apparent distress, Oriented x2 HEENT: Atraumatic, PERRLA, Mucous membr. moist/pink, EOMI, Sclerae nonicteric Neck: Supple, 2+ carotid pulse no bruit, No LAD, Without JVD or thyroid abnormality Respiratory: Clear to auscultation bilaterally, Normal air movement Cardiovascular: Regular rate/rhythm, Normal S1 S2 Capillary refill: <2 Seconds Gastrointestinal: Normal bowel sounds, No tenderness Musculoskeletal: No tenderness Integumentary: No rashes Neurological: Normal strength at 5/5 x4 extr, Normal tone, Normal affect, Other, Abnormal speech (expressive aphasia, difficulty understanding simple commands, no obvious unilateral weakness, unable to state where she is) - Studies Laboratory Data (last 24 hrs) 03/01/23 03/01/23 03/01/23 20:15 20:15 20:15 WBC 8.10 Hgb 13.8 Hct 42.1 Plt Count 225 PT 11.5 INR 1.05 APTT 30.7 Sodium 139 Potassium 4.5 BUN 16 Creatinine 0.98 Glucose 115 H Magnesium 1.8 Total Bilirubin 0.6 AST 26 ALT 35 Alkaline Phosphatase 86 Assessment and Plan - Plan Assessment: Suspected ischemic CVA Diabetes mellitus type 2insulin-dependent Hypertension Hyperlipidemia History of CAD with previous stents GERD Plan: Suspected ischemic CVA Noted to have expressive aphasia, difficulty following simple commands, appears to be confused. NIH~5. CT head negative for acute findings CTA head and neck negative for large vessel occlusion or critical stenosis Neurology consult, MRI stroke protocol Aspirin, statin, folic acid, Plavix, PT, speech therapy. Allow for permissive hypertension although blood pressure is markedly elevated, home medications continued. Diabetes mellitus type 2insulin-dependent ACHS Accu-Chek, sliding scale insulin, A1c in the morning. Hypertension Clonidine, carvedilol, valsartan continued. Hyperlipidemia Continue statin. History of CAD with previous stents GERD Continue home medications. DVT PPX: Lovenox Code status: Full Discharge Plan: Home Plan to discharge in: Greater than 2 days - Advance Directives Does patient have a Living Will: No Does patient have a Durable POA for Healthcare: Yes - Code Status/Comfort Care Code Status Assessed: Yes (Full code) Critical Care: No Time Spent Managing Pts Care (In Minutes): 55
[2023-03-02] MEDS: NA CHLORIDE 0.9% 1,000 ML IV SCH ×2 (00:49→13:15)
[2023-03-02 01:20] VITALS: BMI 25.4
[2023-03-02] MEDS ORDERED: HYDROCODONE/APAP 7.5/325 MG TAB PO PRN (02:35)
[2023-03-02] MEDS ORDERED: MORPHINE 2 MG/ML SYR IV ONE (02:54)
[2023-03-02 03:08] LABS: Absolute Lymphocytes (CBC) 0.7 K/uL (0.7-4.9); Hematocrit 38.9 % (36.0-45.0); Lymphocytes % 7.7 % (15.3-44.8); MCV 88.6 fL (80-100); MPV 9.5 fL (7.6-11.3); Platelets 205 thou/uL (152-406); RBC Red Blood Cell Count 4.39 M/uL (3.86-4.86)
[2023-03-02 03:43] LABS: Potassium 3.9 mEq/L (3.5-5.1); T4,Total 11.4 ug/dL (4.8-13.9); Thyroid Stimulating Hormone 0.766 uIU/mL (0.358-3.740)
[2023-03-02] MEDS: carvediloL 12.5 MG TAB PO SCH ×2 (05:25→17:14)
[2023-03-02] MEDS: INSULIN -REGULAR HUMAN 50 UNIT/0.5 ML ML SQ SCH ×4 (07:30→20:54)
--- NOTE | 2023-03-02 08:31 | P.PN ---
Subjective Date of Service: 03/02/23 Chief Complaint: CVA Patient awake and alert this AM. Reports thinking more clearly with improved speech ability, still some pausing to think of words. Symmetrical smile, bilateral upper and lower extremities 5/5 strength but bilateral hand squeeze remains weak 2/5. Patient failed a repeat swallow test and remains NPO for now. Walked with PT down the menard. MRI pending. Lipid panel unremarkable. <Laureen Thacker - Last Filed: 03/02/23 10:07> Date of Service: 03/02/23 <Richy Shipley - Last Filed: 03/02/23 17:24> Review of Systems General: Weakness Eyes: Unremarkable ENT: Unremarkable Respiratory: Unremarkable Cardiovascular: Unremarkable Gastrointestinal: Unremarkable Genitourinary: Unremarkable Musculoskeletal: Hand Pain (Left carpal tunnel), Other (Back pain) Integumentary: Unremarkable Neurological: Weakness, Other (reports unable to think of words) Lymphatics: Unremarkable <Laureen Thacker - Last Filed: 03/02/23 10:07> Physical Examination - Vital Signs Temperature: 98.1 F Blood Pressure: 180/84 Pulse: 80 Respirations: 17 Pulse Ox (%): 93 - Physical Exam General: Alert, In no apparent distress, Oriented x3 HEENT: Atraumatic, Normocephalic, PERRLA, Mucous membr. moist/pink Neck: Supple, 2+ carotid pulse no bruit, JVD not distended Respiratory: Clear to auscultation bilaterally, Normal air movement Cardiovascular: No edema, Normal pulses, Regular rate/rhythm, Normal S1 S2 Capillary refill: <2 Seconds Gastrointestinal: Normal bowel sounds, Soft and benign, Non-distended Musculoskeletal: No swelling, No contractures, No erythema Integumentary: No rashes, No breakdown Neurological: Normal speech, Normal strength at 5/5 x4 extr (Bilateral upper and lower extremities), Other (Better thought process, still unable to think of some words), Abnormal strength (2/5 bilateral hand squeeze ) - Studies Laboratory Data (last 24 hrs) 03/01/23 03/01/23 03/01/23 20:15 20:15 20:15 WBC 8.10 Hgb 13.8 Hct 42.1 Plt Count 225 PT 11.5 INR 1.05 APTT 30.7 Sodium 139 Potassium 4.5 BUN 16 Creatinine 0.98 Glucose 115 H Magnesium 1.8 Total Bilirubin 0.6 AST 26 ALT 35 Alkaline Phosphatase 86 <Laureen Thacker - Last Filed: 03/02/23 10:07> - Studies Laboratory Data (last 24 hrs) 03/01/23 03/01/23 03/01/23 20:15 20:15 20:15 WBC 8.10 Hgb 13.8 Hct 42.1 Plt Count 225 PT 11.5 INR 1.05 APTT 30.7 Sodium 139 Potassium 4.5 BUN 16 Creatinine 0.98 Glucose 115 H Magnesium 1.8 Total Bilirubin 0.6 AST 26 ALT 35 Alkaline Phosphatase 86 <Richy Shipley - Last Filed: 03/02/23 17:24> Assessment And Plan - Plan Assessment: Suspected ischemic CVA Diabetes mellitus type 2insulin-dependent Hypertension Hyperlipidemia History of CAD with previous stents GERD Plan: Suspected ischemic CVA improved speech this AM NIH~5 (03/01) CT head negative for acute findings CTA head and neck negative for large vessel occlusion or critical stenosis Neurology consult MRI pending Aspirin, statin, folic acid, Plavix Working with PT Failed swallow repeat swallow test- speech therapy. NPO Allow for permissive hypertension although blood pressure is markedly elevated, home medications continued. Diabetes mellitus type 2insulin-dependent ACHS Accu-Chek with sliding scale insulin Serum glucose 206, bedside POC 197 A1c 7.0 Hypertension Clonidine, carvedilol, valsartan continued. allowing for permissive hypertension at this time apresoline PRN SBP >185 Hyperlipidemia Continue statin. History of CAD with previous stents Lipid panel unremarkable GERD Continue home medications. DVT PPX: Lovenox Code status: Full Discharge Plan: Home Plan to discharge in: Greater than 2 days Discharge Plan: Home <Laureen Thacker - Last Filed: 03/02/23 10:07> Physician Review Additional Text: 03/02/23 12:21 Patient seen on rounds this afternoon. Case reviewed with QUALITY COMPLIANCE CONSULTANT Kedar Agree with plan of care as noted above symptoms improving Does report some burning discomfort with urination intermittently over the last month denies fever, no leukocytosis UA pending less likely UTI, patient without fever/leukocytosis, dysuria intermittent for 1 month, and presenting symptoms improved with antibiotic treatment On review of EMR patient with severe HTN on presentation to ED, either as response to ?CVA vs hypertensive emergency leading to symptoms. Time Spent Managing PTS Care (In Minutes): 45 <Richy Shipley - Last Filed: 03/02/23 17:24>
[2023-03-02] MEDS: FOLIC ACID 1 MG TABLET PO SCH (08:35)
[2023-03-02] MEDS: VALSARTAN 160 MG TAB PO SCH (08:35)
[2023-03-02] MEDS: cloNIDine HCL 0.1 MG TAB PO SCH ×3 (08:35→20:52)
[2023-03-02] MEDS: CLOPIDOGREL 75 MG TABLET PO SCH (08:35)
[2023-03-02] MEDS: ENOXAPARIN 40 MG/0.4 ML SQ SCH (08:46)
--- NOTE | 2023-03-02 10:08 | RAD REPORT ---
EXAM DESCRIPTION: MRI - Brain Wo Cont - 03/02/2023 7:58 am CLINICAL HISTORY: suspected ischemic cva COMPARISON: Head CT 03/01/2023 TECHNIQUE: Multiplanar multisequence MRI of the brain performed without IV contrast. FINDINGS: Motion artifact somewhat limits evaluation, despite attempts at repeat imaging. No evidence of acute infarct or other diffusion signal abnormality. No evidence of acute intracranial hemorrhage or abnormal extra-axial fluid collections. Mild diffuse parenchymal volume loss. Ventricular caliber otherwise within normal for age. Midline st ructures are unremarkable. Minimal periventricular and deep white matter T2/FLAIR hyperintensities, nonspecific, but suggestive of chronic small vessel ischemic changes. No mass effect or midline shift. Major vascular flow voids are preserved. Mastoid air cells and paranasal sinuses are clear. IMPRESSION: No acute intracranial process. No evidence of ventriculomegaly or mass effect. Chronic findings as above.
--- NOTE | 2023-03-02 16:33 | EKG ---
Test Date: 2023-03-01 Test Time: 19:55:52 [place] Bpm Developer: KELSEA MEASUREMENT RESULTS: Intervals: Rate: 67 [place]: 188 QRSD: 76 QT: 362 QTc: 382 [place]: P: 72 [place]: 188 QRS: 43 T: 66 INTERPRETIVE STATEMENTS: Normal sinus rhythm ST abnormality, possible digitalis effect Abnormal ECG Compared to ECG 01/15/2023 11:37:44 ST (T wave) deviation now present Sinus bradycardia no longer present Electronically Signed On 03-02-23 16:31:34 CDT by Brett Samson
[2023-03-02 16:37] LABS: Specific Gravity > 1.030 (1.005-1.030); Urine Bacteria <20 /HPF (<20); Urine Bilirubin NEGATIVE (Negative); Urine Blood Negative (Negative); Urine Clarity Extremely Turbid (Clear); Urine Color Yellow (Yellow); Urine Glucose NEGATIVE (Negative); Urine Mucus Slight /HPF (None Seen); Urine Protein 3+ (Negative); Urine Urobilinogen Normal (Normal); Urine pH 5.5 (5.0-7.0)
[2023-03-02] MEDS ORDERED: WARFARIN SODIUM 5 MG TAB PO SCH (17:00)
[2023-03-02] MEDS: ATORVASTATIN 40 MG TAB PO SCH (20:52)
[2023-03-03] MEDS: NA CHLORIDE 0.9% 1,000 ML IV SCH (02:23)
[2023-03-03 05:55] LABS: Hematocrit 34.7 % (36.0-45.0); Lymphocytes % 26.5 % (15.3-44.8); MCV 89.1 fL (80-100); MPV 8.6 fL (7.6-11.3); Platelets 196 thou/uL (152-406)
[2023-03-03 06:08] LABS: Potassium 3.4 mEq/L (3.5-5.1)
[2023-03-03] MEDS: carvediloL 12.5 MG TAB PO SCH ×2 (06:23→16:39)
[2023-03-03] MEDS: INSULIN -REGULAR HUMAN 50 UNIT/0.5 ML ML SQ SCH ×4 (07:30→21:00)
[2023-03-03] MEDS: cloNIDine HCL 0.1 MG TAB PO SCH ×3 (08:52→20:49)
[2023-03-03] MEDS: ENOXAPARIN 40 MG/0.4 ML SQ SCH (08:54)
[2023-03-03] MEDS: VALSARTAN 160 MG TAB PO SCH (08:55)
[2023-03-03] MEDS: CLOPIDOGREL 75 MG TABLET PO SCH (08:55)
[2023-03-03] MEDS: FOLIC ACID 1 MG TABLET PO SCH (08:55)
[2023-03-03] MEDS ORDERED: POTASSIUM CL SA 10 MEQ TAB PO ONE (09:00)
--- NOTE | 2023-03-03 09:35 | P.PN ---
Subjective Date of Service: 03/03/23 Chief Complaint: CVA Patient awake, alert, and oriented this morning. Patient's family at bedside, reports patient had an episode last night at 7pm trying to climb out of bed and calling the bed a car. Patient reports urinary frequency and no BM in several days, UA showing some yeast. MRI neg for ischemic changes. BP 166/91 this morning, passed swallow test with CUST[employer]S IMPORT SPECIALIST yesterday, restarted diet and oral medications. Patient has home health services with a nurse and PT. Likely disch arge in one to two days. <Laureen Thacker - Last Filed: 03/03/23 16:18> Date of Service: 03/03/23 <Richy Shipley - Last Filed: 03/03/23 16:41> Physical Examination - Vital Signs Temperature: 97.9 F Blood Pressure: 170/68 Pulse: 60 Respirations: 18 Pulse Ox (%): 94 <Laureen Thacker - Last Filed: 03/03/23 16:18> Assessment And Plan - Plan Assessment: Suspected ischemic CVA Diabetes mellitus type 2insulin-dependent Hypertension Hyperlipidemia History of CAD with previous stents GERD Plan: TIA vs CVA improved speech this AM NIH~5 (03/01) CT head negative for acute findings CTA head and neck negative for large vessel occlusion or critical stenosis Neurology consult MRI pending Aspirin, statin, folic acid, Plavix Working with PT Allow for permissive hypertension- 166/91 Diabetes mellitus type 2insulin-dependent ACHS Accu-Chek with sliding scale insulin Serum glucose 206, bedside POC 197 A1c 7.0 Hypertension Clonidine, carvedilol, valsartan continued. allowing for permissive hypertension apresoline PRN SBP >185 Hyperlipidemia Continue statin. History of CAD with previous stents Lipid panel unremarkable GERD Continue home medications. 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 encourage boost supplements Constipation Bowel regimen ordered: colace, miralax, dulcolax suppository PRN, mag citrate PRN DVT PPX: Lovenox Code status: Full Discharge Plan: Home Plan to discharge tomorrow <Laureen Thacker - Last Filed: 03/03/23 16:18> - Plan Patient seen on rounds this morning Agree with plan of care as noted above Patient had an episode yesterday from approximately 6 PM to 9 PM Described as confusion, patient did not quite understand where she was, did not recognize family member, having difficulty getting her words across Patient states that she does not recall these events. She does however, remember at least one of the episodes that occurred prior to hospitalization, specifically remembering she cannot get her sentence out This episode was different and that she does not remember had more confusion. Unclear etiology of this episode. Possibly acute delirium /sundowning, possibility of another TIA. Patient did have some relative hypotension earlier in the day, at which she was noted to be in the [id number] systolic. She was running 1 60-1 70 systolic previously. 8-10 hours later was and she developed symptoms. Less likely to be due to this change and blood pressure given the timeframe. reports having "yeast infection" symptoms for 1 month, with improvement but no resolution after OTC topical treatment x 2. will give diflucan x1 03/03 Time Spent Managing PTS Care (In Minutes): 45 <Richy Shipley - Last Filed: 03/03/23 16:41>
[2023-03-03] MEDS ORDERED: POLYETHYL GLY 3350 17 GM/DOSE PO PRN (09:40)
[2023-03-03] MEDS ORDERED: MAGNESIUM CITRATE 300 ML BOT PO PRN (09:41)
[2023-03-03] MEDS ORDERED: BISACODYL 10 MG RECTAL SUPP PR PRN (09:45)
[2023-03-03 09:58] VITALS: O2SAT 96
[2023-03-03] MEDS ORDERED: FLUCONAZOLE 100 MG TAB PO ONE (11:00)
[2023-03-03] MEDS ORDERED: ENSURE PLANT-BASED PROTEIN CHOCOLATE 330 ML LIQUID PO SCH (11:30)
[2023-03-03] MEDS: ENSURE PLANT-BASED PROTEIN VANILLA 330 ML CAN PO SCH ×2 (11:30→16:26)
[2023-03-03] MEDS: ATORVASTATIN 40 MG TAB PO SCH (20:49)
[2023-03-03] MEDS: DOCUSATE NA 100 MG CAP PO SCH (20:49)
[2023-03-04] MEDS: carvediloL 12.5 MG TAB PO SCH (05:37)
[2023-03-04 06:55] LABS: Absolute Lymphocytes (CBC) 1.5 K/uL (0.7-4.9); Hematocrit 41.7 % (36.0-45.0); MCV 88.9 fL (80-100); Platelets 202 thou/uL (152-406); RBC Red Blood Cell Count 4.69 M/uL (3.86-4.86)
[2023-03-04 07:08] LABS: Magnesium 1.8 mg/dL (1.6-2.4); Potassium 3.7 mEq/L (3.5-5.1)
[2023-03-04] MEDS: ENSURE PLANT-BASED PROTEIN VANILLA 330 ML CAN PO SCH ×2 (07:30→11:30)
[2023-03-04] MEDS: FOLIC ACID 1 MG TABLET PO SCH (08:21)
[2023-03-04] MEDS: ENOXAPARIN 40 MG/0.4 ML SQ SCH (08:21)
[2023-03-04] MEDS: DOCUSATE NA 100 MG CAP PO SCH (08:21)
[2023-03-04] MEDS: VALSARTAN 160 MG TAB PO SCH (08:21)
[2023-03-04] MEDS: CLOPIDOGREL 75 MG TABLET PO SCH (08:21)
[2023-03-04] MEDS: INSULIN -REGULAR HUMAN 50 UNIT/0.5 ML ML SQ SCH ×2 (08:22→11:30)
[2023-03-04] MEDS: POTASS/SODIUM PHOSPHATE 1 PKT POWD.PACK PO SCH ×3 (08:22→10:49)
[2023-03-04] MEDS: cloNIDine HCL 0.1 MG TAB PO SCH ×2 (08:23→10:49)
[2023-03-04 10:09] VITALS: TEMP 97.4
--- NOTE | 2023-03-04 11:05 | P.DS ---
Admission Date: 03/01/23 Discharge Date: 03/04/23 Disposition: ROUTINE DISCHARGE Discharge Condition: GOOD Reason for Admission: CVA Brief History of Present Illness: Patient is an 82-year-old female who presented to the ED on 03/02/2023 with confusion and change of speech. Similar episode on 02/28/2023 at 5 PM including difficulty finding her fingers, entire episode lasted 1 hour. Patient was unable to speak full sentences and have difficulty with speech with some mild right- sided facial droop, and difficulty following commands. While in the ER CT of her head noncontrast was negative for acute findings, CT head and neck angiogram revealed 70% stenosis to right carotid bulb. Blood pressure was markedly elevated SBP 222, neurology recommended better blood pressure control at that time. During admission patient worked with physical therapy and speech therapy, permissive hypertensive allowed and tolerated, resolution of symptoms occurred over a matter of few days. Some hospital delirium on 03/02 throughout the night. Finaly diagnosis of TIA vs CVA, MRI head is negative for ischemic changes. Patient is stable and ready for discharge. Instructions given for proper blood pressure control while remaining on previous antihypertensives, goal of SBP 140- 170 with follow-up with Dr. Paz for further antihypertensive adjustments. Follow-up with Dr. Newton in 1 month for neurological examination. Patient will be discharged with a new prescription for Plavix, atorvastatin, 1 dose of fluconazole, and folic acid. follow-up with Dr. Paz for BP management Will need follow-up on known right carotid bulb 70% stenosis. Follow-up for left carpal tunnel syndrome, plan for surgery after completing one month on Plavix, start date 03/02. Follow up with Dr Newton for neurologic examination Vital Signs/Physical Exam: Temp Pulse Resp BP Pulse Ox 97.4 F 56 16 188/70 H 95 03/04/23 08:00 03/04/23 08:23 03/04/23 08:00 03/04/23 08:00 03/04/23 08:00 General: Alert, In no apparent distress, Oriented x3, Other (some confusion d/t hospital delirium) HEENT: Atraumatic, Normocephalic, PERRLA Neck: Supple, 2+ carotid pulse no bruit, JVD not distended Respiratory: Clear to auscultation bilaterally, Normal air movement Cardiovascular: No edema, Normal pulses, Regular rate/rhythm, Normal S1 S2 Capillary refill: <2 Seconds Gastrointestinal: Hypoactive Musculoskeletal: No clubbing, No swelling, No contractures, Other (brace to left arm for carpal tunnel syndrome ) Integumentary: No rashes, No breakdown Neurological: Normal gait (uses rolling walker), Normal speech, Cranial nerves 3-12 intact Laboratory Data at Discharge: WBC 6.80 thou/uL (4.3-10.9) 03/04/23 06:37 Hgb 14.2 g/dL (12.0-15.0) D 03/04/23 06:37 Hct 41.7 % (36.0-45.0) 03/04/23 06:37 Plt Count 202 thou/uL (152-406) 03/04/23 06:37 PT 11.5 SECONDS (9.5-12.5) 03/01/23 20:15 INR 1.05 03/01/23 20:15 APTT 30.7 SECONDS (24.3-36.9) 03/01/23 20:15 Sodium 144 mEq/L (136-145) 03/04/23 06:37 Potassium 3.7 mEq/L (3.5-5.1) 03/04/23 06:37 BUN 16 mg/dL (7-18) 03/04/23 06:37 Creatinine 0.83 mg/dL (0.55-1.02) 03/04/23 06:37 Glucose 178 mg/dL (74-106) H 03/04/23 06:37 Phosphorus 2.0 mg/dL (2.5-4.9) L 03/04/23 06:37 Magnesium 1.8 mg/dL (1.6-2.4) 03/04/23 06:37 Total Bilirubin 0.6 mg/dL (0.2-1.0) 03/01/23 20:15 AST 26 U/L (15-37) 03/01/23 20:15 ALT 35 U/L (13-56) 03/01/23 20:15 Alkaline Phosphatase 86 U/L (45-117) 03/01/23 20:15 Triglycerides 75 mg/dL (<150) 03/02/23 02:44 Cholesterol 112 mg/dL (<200) 03/02/23 02:44 HDL Cholesterol 54 mg/dL (40-60) 03/02/23 02:44 Cholesterol/HDL Ratio 2.07 03/02/23 02:44 Home Medications: Cholecalciferol (Vitamin D3) [Vitamin D 1000 Iu Tab*] 1,000 unit PO DAILY 01/21/16 Furosemide [Lasix*] 20 mg PO DAILY tab 03/07/16 Aspirin 81 mg PO BEDTIME 05/18/20 Biotin 5,000 mcg PO DAILY 05/18/20 Cinacalcet HCl 30 mg PO BEDTIME 05/18/20 Ubidecarenone [Co Q-10] 200 mg PO NOON 05/18/20 Ezetimibe [Zetia*] 10 mg PO NOON 07/13/22 Linagliptin/Metformin HCl [Jentadueto Xr 5 mg-1,000 mg Tb] 1 each PO 1200 07/13/22 Polyethylene Glycol 3350 [Miralax] 17 gm PO DAILYPRN PRN 07/13/22 cloNIDine HCL [Clonidine HCl] 0.1 mg PO TID 07/13/22 Glucerna Shake [Glucerna*] 237 ml PO BID can 07/21/22 Hydrocodone 5/APAP 325 [[place] 5/325*] 1 tab PO Q6H PRN tab 07/21/22 carvediloL [Coreg*] 12.5 mg PO BID tab 07/21/22 Insulin -Regular Human [Novolin -R*] See Protocol SQ ACHS 01/18/23 Insulin Glargine/Lixisenatide [Soliqua 100 Unit-33 Mcg/ml Pen] 30 unit SQ DAILY 01/18/23 Valsartan 320 mg PO DAILY 01/18/23 Escitalopram Oxalate [Lexapro] 1 tab PO DAILY 03/02/23 Atorvastatin Calcium [Lipitor] 40 mg PO BEDTIME 30 Days tab 03/04/23 Clopidogrel Bisulfate [Plavix*] 75 mg PO DAILY #30 03/04/23 Fluconazole [Diflucan] 150 mg PO ONCE #1 tab 03/04/23 Folic Acid 1 mg PO ONCE #30 03/04/23 Valsartan [Diovan*] 320 mg PO DAILY tab 03/04/23 carvediloL [Coreg*] 12.5 mg PO BID 6AM 6PM tab 03/04/23 cloNIDine HCL [Catapres*] 0.1 mg PO TID tab 03/04/23 New Medications: Fluconazole [Diflucan] 150 mg PO ONCE #1 tab Folic Acid 1 mg PO ONCE #30 Atorvastatin Calcium [Lipitor] 40 mg PO BEDTIME 30 Days tab Clopidogrel Bisulfate [Plavix*] 75 mg PO DAILY #30 Physician Discharge Instructions: Discharge Instructions Discharge home and continue with home health and home Physical therapy Blood pressure to be checked 4 times daily and keep a record for Dr. Paz, goal of systolic is 140-170 Blood pressure medications to be further adjusted by Dr. Paz in one week Follow up with Dr. Paz in one week Follow up with Dr. Newton in one month for neurological examination Diet regular, no concentrated sweets Activity- up as able, use rolling walker, please ambulate with assistance Discharge medications: remain the same new prescription for Plavix 75 mg by mouth daily, started 03/02 new prescription for Fluconazole 150 mg by mouth once, to be taken on Tuesday 03/06, finish treatment of yeast infection new folic acid 1 mg by mouth Right Carotid stenosis of 70% will need to be followed by a cardiovascular sugeon Carpal Tunnel syndrome to left hand, follow up with surgeon and will need to schedule surgery after one month of starting Plavix (03/02) Time spent managing pt's care (in minutes): 55
[2023-03-04 14:20] VITALS: BP 148/78
--- NOTE | 2023-03-05 07:30 | ECHO ---
HEIGHT: 5 ft 8 in WEIGHT: 170 lb 0 oz DATE OF STUDY: 03/02/[address]: Fermin Moreira NP 2-DIMENSIONAL: YES M.MODE: YES DOPPLER: YES COLOR FLOW: YES TDS: PORTABLE: YES DEFINITY: BUBBLE STUDY: DIAGNOSIS: STROKE CARDIAC HISTORY: CATHERIZATION: SURGERY: PROSTHETIC VALVE: PACEMAKER: MEASUREMENTS (cm) DIASTOLIC (NORMALS) SYSTOLIC (NORMALS) IVSd 1.0 (0.6-1.2) LA Diam 2.8 (1.9-4.0) LVEF 77% LVIDd 3.8 (3.5-5.7) LVIDs 2.1 (2.0-3.5) %FS 45% LVPWd 1.1 (0.6-1.2) Ao Diam 2.5 (2.0-3.7) 2 DIMENSIONAL ASSESSMENT: RIGHT ATRIUM: NORMAL LEFT ATRIUM: NORMAL RIGHT VENTRICLE: NORMAL LEFT VENTRICLE: NORMAL TRICUSPID VALVE: MILD TRICUSPID REGURGITATION MITRAL VALVE: MILD MITRAL ANNULAR CALCIFICATION WITH MILD MITRAL REGURGITATION PULMONIC VALVE: NORMAL AORTIC VALVE: NORMAL PERICARDIAL EFFUSION: NONE AORTIC ROOT: NORMAL LEFT VENTRICULAR WALL MOTION: NORMAL DOPPLER/COLOR FLOW: SEE BELOW COMMENTS: 1. NORMAL LEFT VENTRICULAR EJECTION FRACTION GREATER THAN 60% WITH NORMAL WALL MOTION 2. GRADE I DIASTOLIC DYSFUNCTION 3. MILD MITRAL REGURGITATION 4. MILD TRICUSPID REGURGITATION TECHNOLOGIST: OCHOA HUYNH
== END 2023-03-04 14:00 | disposition home or self-care (01) | DRG 65 ==
LOC: ER 18:06 → 4TH 22:56
PROVIDERS: ADMIT Hospitalist; ATTEND Hospitalist
DX: I63.9 Cerebral infarction, unspecified (principal); F05 Delirium due to known physiological condition; I10 Essential (primary) hypertension; E78.5 Hyperlipidemia, unspecified; E11.42 Type 2 diabetes mellitus with diabetic polyneuropathy; M19.90 Unspecified osteoarthritis, unspecified site; K59.00 Constipation, unspecified; J45.909 Unspecified asthma, uncomplicated; I25.10 Atherosclerotic heart disease of native coronary artery without angina pectoris; I25.2 Old myocardial infarction; R29.810 Facial weakness; R47.01 Aphasia; R29.705 NIHSS score 5; Z95.5 Presence of coronary angioplasty implant and graft; Z79.4 Long term (current) use of insulin; Z79.82 Long term (current) use of aspirin; Z79.899 Other long term (current) drug therapy; Z96.653 Presence of artificial knee joint, bilateral
CPT/HCPCS: 36415; 70450; 70496; 70498; 70551; 71045; 80048; 80061; 80076; 81001; 82947; 83036; 83735; 84100; 84436; 84443; 84484; 85025; 85610; 85730; 92523; 92610; 93005; 93306; 96365; 97116; 97162; 97530; 99285; J0360; J1650; J1815; J2270; J7030; Q9967

== ENCOUNTER 2023-05-04 21:04 | Emergency (ER) | payer OTHER ==
--- OUTSIDE RECORDS SUMMARY | 2023-05-04 21:22 | XMS REPORT | Continuity of Care Document ---
:1940 Author Organization [facility] t Address [address] [place] [address] Care Team Providers Name Role Phone KJ GIBSON Primary Care Physician Unavailable CAROLINA MAYORGA Attending Clinician Unavailable WM LOPEZ Attending Clinician Unavailable ASIA SEGOVIA Attending Clinician Unavailable Skyler Hatch Attending Clinician Unavailable MICHAEL ASHBY Attending Clinician Unavailable Norma Espinoza Attending Clinician Unavailable Daniel Attending Clinician Unavailable Lora Quinones MD Attending Clinician [email or web address] Attending Clinician Unavailable KIRILL SANCHEZ Attending Clinician Unavailable Wm Lopez MD Attending Clinician Asia Segovia MD Attending Clinician Daniel WARD, Kirill Attending Clinician Riley Morton MD Attending Clinician Maura Bello Attending Clinician Tierra WARD, Carolina Harman Attending Clinician [phone] Frank WARD, Alex Dunaway Attending Clinician Daniramiro_T Attending Clinician Unavailable Provider , Not In System Attending Clinician Unavailable Rut Nicolas MA Attending Clinician Unavailable Wilian Attending Clinician Unavailable Doctor Unassigned, Bridgman Attending Clinician Unavailable Chucho Montenegro MD Attending Clinician CHUCHO MONTENEGRO Attending Clinician Unavailable CHUCHO MONTENEGRO Attending Clinician Unavailable Roger Holloway Attending Clinician [phone] Phillip Castaneda Attending Clinician Unavailable Joby Wheeler MD Attending Clinician Whitley Bryson RN Attending Clinician Unavailable MICHAEL ASHBY M.D. Attending Clinician Unavailable Riley Whyte Attending Clinician Jean Paul Angela Attending Clinician Ranjit Drew Attending Clinician Keron Thomas Attending Clinician WM LOPEZ Admitting Clinician Unavailable Phillip Castaneda Admitting Clinician Unavailable Daniel Admitting Clinician Unavailable [email or web address] Admitting Clinician Unavailable Ej Admitting Clinician Unavailable Wilian Admitting Clinician Unavailable KNOW, DOES_NOT Admitting Clinician Unavailable Riley Whyte Admitting Clinician Jean Paul Angela Admitting Clinician Ranjit Drew Admitting Clinician Payers Payer Name Policy Type Policy Number Effective Date Expiration Date S ource UNITED MEDICARE HMO [id number] 2022 00:00:00 UHC MEDICARE [id number] 2021 ADVANTAGE 00:00:00 [facility] [id number] (MEDICARE REPLACEMENT/ADVANTA GE - PPO) [facility] [id number] 2022 [facility] 00:00:00 PPO [facility] [id number] 2023 00:00:00 [place]: [id number] [employer] (MEDICARE [id number] REPLACEMENT/ADVANTA GE - PPO) Problems Condition Condition Condition Status Onset Resolution Last Treating Co mments Source Name Details Category Date Date Treatment Clinician Date Inflammati Inflammati Problem Active 2022-06 A hectorlea on of on of 07-04 Orthope sacroiliac Sacroiliac 00:00: di c joint Joint 00 Sports Medicin e Bilateral Bilateral Problem Active 2022-06 Aza maritza sacral Sacral 1-13 Orthope insufficie Insufficie 00:00: di c ncy ncy 00 Sports fracture Fracture Medici n e TIA TIA Disease Active 2022-[address] [facility] [address] (transient (transient 0-02 Jessica kes ischemic ischemic 00:00: Medica l attack) attack) 00 Center Dysarthria Dysarthria Disease Active 2022-[address] [facility] 00:[facility]: Medical 00 Center Stenosis Stenosis Disease Active 2022-06 [facility] right of right 0-02 [facility] carotid carotid 00:00: Medical artery artery 00 Center Carotid Carotid Disease Active 2022-[address] artery artery 0-02 [facility] stenosis stenosis 00:00: Medica l 00 Center Osteoarthr Osteoarthr Problem Active A zalea itis of itis of 02-21 Orthope joint of Joint of 00:00: dic right hand Right Hand 00 Sp orts Medicin e Pain in Pain in Problem Active Arlin right hand Right Hand 02-20 Or thope 00:00: dic 00 Sports Medicin e Carpal Carpal Problem Active Arlin tunnel 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 syndrome Syndrome 00:00: dic of left of Left 00 Sports wrist Wrist Medicin e Pain of Pain of Problem Active [place] bilateral Bilateral 11-24 Fami ly hands Hands 00:00: Practic 00 e Pain of Pain of Problem Active Arlin right Right 4-04 Orthope shoulder Shoulder 00:00: dic joint Joint 00 Sports Medicin e Pain of Pain of Problem Active Arlin left knee Left Knee 4-04 Orth ope joint Joint 00:00: dic 00 Sports Medicin e Overweight Overweight Problem Active V illage 3-07 Family 00:00: Practic 00 e Fracture Fracture Problem Active [facility] of fibula of Fibula 3 Fami ly 00:00: Practic 00 e Accidental Accidental Problem Active V illage fall Fall 307 Family 00:00: Practic 00 e Long-term Long-term Problem Active Perry gonzaleze current Current 307 Family use of Use of 00:00: Practic insulin Insulin 00 e Gastro-eso Gastro-eso Disease Active [facility] phageal phageal 2-05 [facility] reflux reflux 00:00: Medical disease disease 00 Center without without esophagiti esophagiti s s Hyperparat Hyperparat Disease Recurre [facility] hyroidism, hyroidism, nce 2-03 Jessica kes unspecifie unspecifie 00:00: Me dical d d 00 Center Hip pain Hip Pain Problem Active Azale a 9-22 Orthope 00:00: dic 00 Sports Medicin e Pain of Pain of Problem Active Arlin left hip Left Hip 9-22 Orthop e joint Joint 00:00: dic 00 Sports Medicin e Senile Senile Problem Active [facility] purpura Purpura 7-08 Family 00:00: Practic 00 e Morbid Morbid Problem Active [place] obesity Obesity 4-19 Family 00:00: Practic 00 e Proteinuri Proteinuri Problem Active V illage a a 2-17 Family 00:00: Practic 00 e Body mass Body Mass Problem Active Perry gonzaleze index 30+ Index 30+ 4-29 Fami ly - obesity - Obesity 00:00: Prac tic 00 e Coronary Coronary Problem Active [facility] arterioscl Arterioscl 4-29 Fa myla erosis erosis 00:00: Practic 00 e Type 2 Type 2 Problem Active [facility] diabetes Diabetes 2-24 Family mellitus Mellitus 00:00: [...] 2 Type 2 diabetes Diabetes mellitus Mellitus Coronary Coronary Disease Recurre [facility] artery artery nce 2-23 [facility] disease disease 00:00: Medical due to due to 00 Center type 2 type 2 diabetes diabetes mellitus mellitus Hypercalce Hypercalce Disease Active M ethodi lis lis 12-23 st 00:00: Hospita 00 l Primary Primary Disease Active Methodi hyperparat hyperparat 12-23 st hyroidism hyroidism 00:00: Hosp gladys 00 l Vitamin D Vitamin D Problem Active 2017-06 Perry benny deficiency Deficiency 0-10 Fa myla 00:00: Practic 00 e Essential Essential Problem Active 2017-06 Perry benny hypertensi Hypertensi 0-10 Fa myla on on 00:00: Practic 00 e Constipati Constipati Problem Active 2017-06 V illage on on 0-10 Family 00:00: Practic 00 e Keratoma Keratoma Problem Active 2017-06 [...] 00:00: di c 00 Sports Medicin e 64436, 39491, Diagnosis Active 2016-08-23 Me flaherty 33531 X3, 47164 X3, 8-16 21:24:00 l CONNECTIVE CONNECTIVE 00:00: He rmann TISSUE AND TISSUE AND 00 D D Active 02/01/2016 [facility] HERNIATED HERNIATED Diagnosis Active 2016-02-01 Memoria LUMBAR LUMBAR 7- 22:00:00 l DISK S/P DISK S/P 00:00: Richard thompson FALL WITH FALL WITH 00 LT H LT H Active 01/11/2016 [facility] HERNIATED HERNIATED Diagnosis Active 2016-01-11 Mem[facility] LUMBAR LUMBAR 7- 05:29:00 l DISK S/P DISK S/P 00:00: Richard thompson FALL WITH FALL WITH 00 LEFT LEFT Active 01/10/2016 [facility] Knee pain Knee Pain Problem Active Falguni maritza 6-09 Orthope 00:00: dic 00 Sports Medicin e Chronic Chronic Disease Recurre Overview: [facility] kidney kidney nce 08-27 Formattin [facility] disease, disease, 00:00: g of this Med ical stage III stage III 00 note Cent er (moderate) (moderate) might be different from the original. BMP is pending. 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 5-02 Or thope s with s with 00:00: dic radiculopa Radiculopa 00 Sp orts thy thy Medicin e CERVICAL CERVICAL Diagnosis Active 2012-10-07 Mem[facility] RADICULITI RADICULITI 3-22 13:29:00 l S, S, 00:00: Luke CERVICAL CERVICAL 00 DISC DISP DISC DISP Active 09/06/2012 [facility] Osteoarthr Osteoarthr Problem Active 2010-06 A bing itis of itis of 0-25 Orthope knee Knee 00:00: dic 00 Sports Medicin e Diabetes Diabetes Problem Active Azatatiana a mellitus Mellitus Orthop e dic Sports Medicin e Hyperlipid Hyperlipid Problem Active A leilaa emia emia Orthope dic Sports Medicin e Obesity Obesity Problem Active Arlin Orthope dic Sports Medicin e Neuropathy Neuropathy Problem Active A hectorlewm Orthope dic Sports Medicin e Hypertensi Hypertensi Problem Active A bing ve ve Orthope disorder Disorder dic Sports Medicin e Gastroesop Gastroesop Problem Active A bing hageal hageal Orthope reflux Reflux dic disease Disease Sports Medicin e Lumbar Lumbar Problem Active Arlin spondylosi Spondylosi Or thope s s dic Sports Medicin e Displaceme Displaceme Problem Active A bing nt of nt of Orthope lumbar Lumbar dic interverte Interverte Sp orts bral disc bral Disc Medi ziyad without without e myelopathy Myelopathy Interverte Interverte Problem Active A bing bral disc bral Disc Orth ope disorder Disorder dic Sports Medicin e Stenosis Stenosis Problem Active Azale a of spinal of Spinal Orth ope canal due Canal Due dic to to Sports interverte Interverte Me dicin bral disc bral Disc e Spinal Spinal Problem Active Arlin stenosis Stenosis Orthop e of lumbar of Lumbar dic region Region Sports Medicin e Low back Low Back Problem Active Azale a pain Pain Orthope dic Sports Medicin e Lumbar Lumbar Problem Active Arlin radiculopa Radiculopa Or thope thy thy dic Sports Medicin e Spondyloli Spondyloli Problem Active A bing sthesis sthesis Orthope dic Sports Medicin e Diabetes Diabetes Problem Resolve 2013-03-21 Memoria mellitus mellitus d 20:07:44 l Resolved [place] Problem 03/21/2013 [facility] PHYLLIS Butler GERD - GERD - Problem Resolve 2013-03-21 Mem oria Gastro-eso Gastro-eso d 20:07:44 l phageal phageal [place] reflux reflux disease disease Resolved Problem 03/21/2013 [facility] PHYLLIS Butler HLD - HLD - Problem Resolve 2013-03-21 Boy andrés Hyperlipid Hyperlipid d 20:07:44 l emia emia Luke Resolved Problem 03/21/2013 [facility] PHYLLIS Butler HTN - HTN - Problem Resolve 2013-03-21 Boy andrés Hypertensi Hypertensi d 20:07:44 l on on Luke Resolved Problem 03/21/2013 [facility] PHYLLIS Butler Neuropathy Neuropath Problem Resolve 2013-03-21 Memoria y Resolved d 20:07:44 l Problem Luke 03/21/2013 [facility], OPID [place] BRACHIAL BRACHIAL Diagnosis Active 2012-10-07 Memoria NEURITIS NEURITIS 13:29:00 l NOS NOS Active Richard thompson [facility] CERV DISC CERV DISC Diagnosis Active 2012-10-07 Memoria DIS W DIS W 13:29:00 l MYELOPAT MYELOPAT Richard thompson Active [facility] ILLNESS, ILLNESS, Diagnosis Active 2016-08-23 Memoria UNSPECIFIE UNSPECIFIE 21:24:00 l D D Active Luke [facility] No known No known Disease UT active active Health problems problems Allergies, Adverse Reactions, Alerts Allergy Allergy Status Severity Reaction(s) Onset Inactive Treating Comm ents Source Name Type Date Date Clinician No Known DA Active [facility]ergie 03-01 [facility] 00:00: Orthope 00 dic Hospita l dulaglut DA Active U DIARRHEA [facility] diane 12-16 [place] 00:00: Orthope 00 dic Hospita l semaglut DA Active U DIARRHEA [facility] diane 12-16 [place] 00:00: Orthope 00 dic Hospita l No Known DA Active U [facility] Allergie 07-02 [facility] 00:00: Orthope 00 dic Hospita l NO KNOWN Allergy Active [facility] NKFA NKFA Active Memoria l Luke Dulaglut Allergy Active Arlin diane to Orthope substanc dic e Sports Medicin e NO KNOWN Drug Active [facility] ALLERGIE [facility] STATINS- Allergy Active Myalgias [facility] HMG-COA to (muscle Family REDUCTAS substanc pain) Practi c E e e INHIBITO RS Family History Family Member Diagnosis Comments Start Date Stop Date Source Natural father Asthma [facility] Natural father Arthritis [facility] Natural father Asthma [facility] Natural father COPD [facility] Maternal aunt Stroke [facility] Maternal aunt Diabetes [facility] Maternal aunt Hypertension [facility] Maternal aunt Stroke [facility] Natural brother Hypertension [facility] Maternal grandmother Hypertension [facility] Natural mother Diabetes [facility] Natural mother Heart disease [facility] Social History Social Habit Start Date Stop Date Quantity Comments Source Sexual orientation 2023-03-18 Heterosexual [facility] (finding[facility] Medical Center Gender identity 2021-11-07 Identifies as Method ist 10:21:00 female gender Hospital (finding) History [facility]Med Medical [facility] History [facility] Housing [facility] Places Lived Medical Cent er History [facility] 2023-03-19 2023-03-[address] [facility] Transport Med - In 00:00:00 00:00:00 Medica l [place] the past 12 months, has lack of transportation kept you from medical appointments or from getting medications? History [facility] Housing 2023-03-19 2023-03-[address] [facility] [facility] Unable to Pay - In 00:00[facility]00 [facility] [place] the last 12 months, was there a time when you were not able to pay the mortgage or rent on time? History [facility] Housing 2023-03-19 2023-03-[address] [facility] Homeless Last Year - 00:00:00 00:00:00 [facility] In the last 12 months, was there a time when you did not have a steady place to sleep or slept in a assisted (including now)? Tobacco use and 2023-03-18 2023-03-[address] [facility] exposure 00:00:00 00:00:00 non-user Medical Center History of Social 2022-12-13 2022-12-[address] function 00:00:00 00:00:00 Hospital Exposure to 2022-07-25 2022-08-04 Not sure University of SARS-CoV-2 (event) 00:00:00 09:35:00 [facility] Cigarette pack-years 2021-11-28 2021-11-28 [facility] 00:00:00 Alcohol intake 2019-06-03 2019-06-03 Current drinker of Me thodist 00:00:00 00:00:00 alcohol (finding) Hospita l Social History 2016-01-11 2016-01-11 [facility] Vanessa burger 22:35:39 22:35:39 Sex Assigned At 1940 [address] [facility] 00:00:00 00:00:00 Medical Center Smoking Status Start Date Stop Date Source Never smoked tobacco [facility] Tobacco smoking consumption [facility] Medications Ordered Filled Start Stop Current Ordering Indication Dosage Frequency Signature Comments Components Source Medication Medication Date Date Medication? Clinician (SIG) Name Name cinacalcet 2022-06 Yes [id number] 30mg Q.5D Take 1 M ethodi (SENSIPAR) 1-08 tablet (30 st 30 MG 00:00: mg total) Hospita tablet 00 by mouth 2 l (two) times a day. cinacalcet 2022-06 Yes [id number] 30mg Q.5D Take 1 M ethodi (SENSIPAR) 1-08 tablet (30 st 30 MG 00:00: mg total) Hospita tablet 00 by mouth 2 l (two) times a day. cinacalcet 2022-06 Yes [id number] 30mg Q.5D Take 1 M ethodi (SENSIPAR) 1-08 tablet (30 st 30 MG 00:00: mg total) Hospita tablet 00 by mouth 2 l (two) times a day. cinacalcet 2022-06- No [id number] TAKE 1 Methodi (SENSIPAR) 0-28 11-[address] 30 MG 00:00: 00:00 MOUTH Hospita tablet 00 :00 TWICE A l DAY cinacalcet 2022-06- No [id number] TAKE 1 Methodi (SENSIPAR) 0-28 11-[address] 30 MG 00:00: 00:00 MOUTH Hospita tablet 00 :00 TWICE A l DAY cinacalcet 2022-06- No [id number] TAKE 1 Methodi (SENSIPAR) 0-28 11-[address] 30 MG 00:00: 00:00 MOUTH Hospita tablet 00 :00 TWICE A l DAY losartan 2022-06- Yes 100mg QD Take 1 [facility] (COZAAR) 0-11 10-10 tablet [facility]ukes 100 MG 00:00: 23:59 (100 mg Medical tablet 00 :00 total) by Center mouth daily. NIFEdipine 2022-06- Yes 90mg QD Take [address] (PROCARDIA- 0-11 10-10 tablet (90 L ukes XL) 90 MG 00:00: 23:59 mg total) Me dical (OSM) 24 hr 00 :00 by mouth Cent er tablet daily. losartan 2022-06- Yes 100mg QD Take 1 [facility] (COZAAR) 0-11 10-10 tablet [facility] 100 MG 00:00: 23:59 (100 mg Medical tablet 00 :00 total) by Center mouth daily. NIFEdipine 2022-06- Yes 90mg QD Take [address] (PROCARDIA- 0-11 10-10 tablet (90 L ukes XL) 90 MG 00:00: 23:59 mg total) Me dical (OSM) 24 hr 00 :00 by mouth Cent er tablet daily. losartan 2022-06- Yes 100mg QD Take 1 [facility] (COZAAR) 0-11 10-10 tablet [facility]ukes 100 MG 00:00: 23:59 (100 mg Medical tablet 00 :00 total) by Center mouth daily. NIFEdipine 2022-06- Yes 90mg QD Take [address] (PROCARDIA- 0-11 10-10 tablet (90 L ukes XL) 90 MG 00:00: 23:59 mg total) Me dical (OSM) 24 hr 00 :00 by mouth Cent er tablet daily. losartan 2022-06- Yes 100mg QD Take 1 [facility] (COZAAR) 0-11 10-10 tablet [facility] 100 MG 00:00: 23:59 (100 mg Medical tablet 00 :00 total) by Center mouth daily. NIFEdipine 2022-06- Yes 90mg QD Take [address] (PROCARDIA- 0-11 10-10 tablet (90 L ukes XL) 90 MG 00:00: 23:59 mg total) Me dical (OSM) 24 hr 00 :00 by mouth Cent er tablet daily. losartan 2022-06- Yes 100mg QD Take 1 [facility] t (COZAAR) 0-11 10-10 tablet [facility]ukes 100 MG 00:00: 23:59 (100 mg Medical tablet 00 :00 total) by Center mouth daily. NIFEdipine 2022-06- Yes 90mg QD Take [address] (PROCARDIA- 0-11 10-10 tablet (90 L ukes XL) 90 MG 00:00: 23:59 mg total) Me dical (OSM) 24 hr 00 :00 by mouth Cent er tablet daily. losartan 2022-06- Yes 100mg QD Take 1 [facility] (COZAAR) 0-11 10-10 tablet [facility] 100 MG 00:00: 23:59 (100 mg Medical tablet 00 :00 total) by Center mouth daily. NIFEdipine 2022-06- Yes 90mg QD Take [address] (PROCARDIA- 0-11 10-10 tablet (90 L ukes XL) 90 MG 00:00: 23:59 mg total) Me dical (OSM) 24 hr 00 :00 by mouth Cent er tablet daily. insulin 2022-06 Yes 30U QD Inject 0.[address] glargine-li 0-10 mLs (30 [facility] xisenatide 18:26: Units Medica l (Sol[place] 41 total) Center 100/33) 100 subcutaneo unit-33 usly mcg/mL daily. syringe clopidogreL 2022-06 Yes 75mg QD Take [address] (PLAVIX) 75 0-10 tablet (75 Jessica kes mg tablet 18:26: mg total) Med ical 41 by mouth Center daily. furosemide 2022-06 Yes 20mg QD Take 1 [facility] (LASIX) 20 0-10 tablet (20 Sal[place] es MG tablet 18:26: mg total) Med ical 41 by mouth Center daily. linagliptin 2022-06 Yes 1{tbl} QD Take [address] -metFORMIN 0-10 tablet by Lubenjamin s (JENTADUETO 18:26: mouth Medic al XR) 5-1,000 41 daily At Cent er mg TBph noon. ezetimibe 2022-06 Yes 10mg QD Take [address] (ZETIA) 10 0-10 tablet (10 [place] es mg tablet 18:26: mg total) Med ical 41 by mouth Center daily At noon. folic acid 2022-06 Yes 1mg QD Take 1 [facility] (FOLVITE) 1 0-10 tablet (1 [place] es MG tablet 18:26: mg total) Med ical 41 by mouth Center daily. aspirin 81 2022-06 Yes 81mg QD Take 1 [facility] MG EC 0-10 tablet (81 [facility] tablet 18:26: mg total) Medica l 41 by mouth Center nightly. cinacalcet 2022-06 Yes 30mg QD Take 1 [facility] (SENSIPAR) 0-10 tablet (30 [facility] es 30 MG 18:26: mg total) Medical tablet 41 by mouth Center nightly. insulin 2022-06 Yes 30U QD Inject 0.[address] glargine-li 0-10 mLs (30 [facility] xisenatide 18:26: Units Medica l ([place] 41 total) Center 100/33) 100 subcutaneo unit-33 usly mcg/mL daily. syringe clopidogreL 2022-06 Yes 75mg QD Take [address] (PLAVIX) 75 0-10 tablet (75 Jessica kes mg tablet 18:26: mg total) Med ical 41 by mouth Center daily. furosemide 2022-06 Yes 20mg QD Take 1 [facility] (LASIX) 20 0-10 tablet (20 [place] es MG tablet 18:26: mg total) Med ical 41 by mouth Center daily. linagliptin 2022-06 Yes 1{tbl} QD Take [address] -metFORMIN 0-10 tablet by Masood martinez (JENTADUETO 18:26: mouth Medic al XR) 5-1,000 41 daily At [facility] er mg TBph noon. ezetimibe 2022-06 Yes 10mg QD Take [address] (ZETIA) 10 0-10 tablet (10 [place] es mg tablet 18:26: mg total) Med ical 41 by mouth Center daily At noon. folic acid 2022-06 Yes 1mg QD Take 1 [facility] (FOLVITE) 1 0-10 tablet (1 [place] es MG tablet 18:26: mg total) Med ical 41 by mouth Center daily. aspirin 81 2022-06 Yes 81mg QD Take 1 [facility] t MG EC 0-10 tablet (81 [facility] tablet 18:26: mg total) Medica l 41 by mouth Center nightly. cinacalcet 2022-06 Yes 30mg QD Take 1 [facility] (SENSIPAR) 0-10 tablet (30 [facility]as es 30 MG 18:26: mg total) Medical tablet 41 by mouth Center nightly. insulin 2022-06 Yes 30U QD Inject 0.[address] glargine-li 0-10 mLs (30 [facility] xisenatide 18:26: Units Medica l ([place] 41 total) Center 100/33) 100 subcutaneo unit-33 usly mcg/mL daily. syringe clopidogreL 2022-06 Yes 75mg QD Take [address] (PLAVIX) 75 0-10 tablet (75 Jessica kes mg tablet 18:26: mg total) Med ical 41 by mouth Center daily. furosemide 2022-06 Yes 20mg QD Take 1 [facility] (LASIX) 20 0-10 tablet (20 [place] es MG tablet 18:26: mg total) Med ical 41 by mouth Center daily. linagliptin 2022-06 Yes 1{tbl} QD Take [address] -metFORMIN 0-10 tablet by Masood martinez (JENTADUETO 18:26: mouth Medic al XR) 5-1,000 41 daily At Cent er mg TBph noon. ezetimibe 2022-06 Yes 10mg QD Take [address] (ZETIA) 10 0-10 tablet (10 [place] es mg tablet 18:26: mg total) Med ical 41 by mouth Center daily At noon. folic acid 2022-06 Yes 1mg QD Take 1 [facility] (FOLVITE) 1 0-10 tablet (1 [place] es MG tablet 18:26: mg total) Med ical 41 by mouth Center daily. aspirin 81 2022-06 Yes 81mg QD Take 1 [facility] MG EC 0-10 tablet (81 [facility] tablet 18:26: mg total) Medica l 41 by mouth Center nightly. cinacalcet 2022-06 Yes 30mg QD Take 1 [facility] (SENSIPAR) 0-10 tablet (30 Salas es 30 MG 18:26: mg total) Medical tablet 41 by mouth Center nightly. insulin 2022-06 Yes 30U QD Inject 0.[address] glargine-li 0-10 mLs (30 [facility] xisenatide 18:26: Units Medica l ([place] 41 total) Center 100/33) 100 subcutaneo unit-33 usly mcg/mL daily. syringe clopidogreL 2022-06 Yes 75mg QD Take [address] (PLAVIX) 75 0-10 tablet (75 Jessica kes mg tablet 18:26: mg total) Med ical 41 by mouth Center daily. furosemide 2022-06 Yes 20mg QD Take 1 [facility] (LASIX) 20 0-10 tablet (20 [place] es MG tablet 18:26: mg total) Med ical 41 by mouth Center daily. linagliptin 2022-06 Yes 1{tbl} QD Take [address] -metFORMIN 0-10 tablet by Masood martinez (JENTADUETO 18:26: mouth Medic al XR) 5-1,000 41 daily At Cent er mg TBph noon. ezetimibe 2022-06 Yes 10mg QD Take [address] (ZETIA) 10 0-10 tablet (10 [place] es mg tablet 18:26: mg total) Med ical 41 by mouth Center daily At noon. folic acid 2022-06 Yes 1mg QD Take 1 [facility] (FOLVITE) 1 0-10 tablet (1 [place] es MG tablet 18:26: mg total) Med ical 41 by mouth Center daily. aspirin 81 2022-06 Yes 81mg QD Take 1 [facility] MG EC 0-10 tablet (81 [facility] tablet 18:26: mg total) Medica l 41 by mouth Center nightly. cinacalcet 2022-06 Yes 30mg QD Take 1 [facility] (SENSIPAR) 0-10 tablet (30 [facility] es 30 MG 18:26: mg total) Medical tablet 41 by mouth Center nightly. insulin 2022-06 Yes 30U QD Inject 0.[address] glargine-li 0-10 mLs (30 [facility] xisenatide 18:26: Units Medica l ([place] 41 total) Center 100/33) 100 subcutaneo unit-33 usly mcg/mL daily. syringe clopidogreL 2022-06 Yes 75mg QD Take [address] (PLAVIX) 75 0-10 tablet (75 Jessica kes mg tablet 18:26: mg total) Med ical 41 by mouth Center daily. furosemide 2022-06 Yes 20mg QD Take 1 [facility] (LASIX) 20 0-10 tablet (20 [place] es MG tablet 18:26: mg total) Med ical 41 by mouth Center daily. linagliptin 2022-06 Yes 1{tbl} QD Take [address] -metFORMIN 0-10 tablet by Masood martinez (DARBYTADUETO 18:26: mouth Medic al XR) 5-1,000 41 daily At Cent er mg TBph noon. ezetimibe 2022-06 Yes 10mg QD Take [address] (ZETIA) 10 0-10 tablet (10 [place] es mg tablet 18:26: mg total) Med ical 41 by mouth Center daily At noon. folic acid 2022-06 Yes 1mg QD [facility] 0-10 tablet (1 [facility] [facility] tablet 18:26: mg total) Med ical 41 by mouth Center daily. aspirin 81 2022-06 Yes 81mg QD Take [facility] ([facility] tablet 18:26: mg total) Medica l 41 by mouth Center nightly. cinacalcet 2022-06 Yes 30mg QD Take [facility] (SENSIPAR[facility] 0-10 tablet (30 [place] [facility] 30 MG 18:26: mg total) Medical tablet 41 by mouth Center nightly. insulin 2022-06 Yes 30U QD Inject 0.[address] [facility] glargine-li 0-10 mLs (30 [facility] xisenatide 18:26: Units Medica l ([place] 41 total) Center 100/33) 100 subcutaneo unit-33 usly mcg/mL daily. syringe clopidogreL 2022-06 Yes 75mg QD Take [address] [facility] (PLAVIX) 75 0-10 tablet (75 Jessica kes mg tablet 18:26: mg total) Med ical 41 by mouth Center daily. furosemide 2022-06 Yes 20mg QD Take [facility] ([facility] 20 0-10 tablet (20 [place] [facility] MG tablet 18:26: mg total) Med ical 41 by mouth Center daily. linagliptin 2022-06 Yes 1{tbl} QD Take [address] [facility] [address] [facility] -metFORMIN 0-10 tablet by Masood martinez ([place] 18:26: mouth Medic al XR) 5-1,000 41 daily At [facility] er mg TBph noon. ezetimibe 2022-06 Yes 10mg QD Take [address] [facility] (ZETIA) 10 0-10 tablet (10 [place] mg tablet 18:26: mg total) Med ical 41 by mouth Center daily At noon. folic acid 2022-06 Yes 1mg QD Take [facility] 1 0-10 tablet (1 [place] [facility] MG tablet 18:26: mg total) Med ical 41 by mouth Center daily. aspirin 81 2022-06 Yes 81mg QD Take [facility] (81 [facility] tablet 18:26: mg total) Medica l 41 by mouth Center nightly. cinacalcet 2022-06 Yes 30mg QD Take [facility] (S[facility] 0-10 tablet (30 [place] 30 MG 18:26: mg total) Medical tablet 41 by mouth Center nightly. cloNIDine 2022-06- No .1mg [id number] Take [address] [facility] HCL 0-10 10-10 [id number] tablet [facility] (CATAPRES) 14:13: 00:00 3D (0.1 mg Med ical 0.1 MG 39 :00 total) by Center tablet mouth 3 (three) times daily. carvediloL 2022-06 No 12.5mg Take [address] [facility] [address] [facility] (COREG) 0-10 10-10 tablet [facility] 12.5 MG 14:13: 00:00 (12.5 mg Medic al tablet 39 :00 total) by Center mouth 2 (two) times daily with breakfast and dinner. valsartan 2022-06- No 320mg QD Take [address] [facility] (DIOVAN) 0-10 10-10 tablet [facility] 320 MG 14:13: 00:00 (320 mg Medical tablet 39 :00 total) by Center mouth daily. ciprofloxac 2022-06- No 500mg Q.5D Take [address] [facility] [address] [facility] in HCl 0-10 10-10 tablet [facility] (CIPRO) 500 14:13: 00:00 (500 mg Me dical MG tablet 39 :00 total) by Cente r mouth 2 (two) times daily. atorvastati 2022-06- No 40mg QD Take [address] [facility] n (LIPITOR) 0-10 10-10 tablet (40 [facility] 40 MG 14:13: 00:00 mg total) Medica l tablet 39 :00 by mouth Center daily. cloNIDine 2022-06- No .1mg [id number] Take [address] [facility] HCL 0-10 10-10 [id number] tablet [facility] (CATAPRES) 14:13: 00:00 3D (0.1 mg Med ical 0.1 MG 39 :00 total) by Center tablet mouth 3 (three) times daily. carvediloL 2022-06- No 12.5mg Take [address] [facility] [address] [facility] (COREG) 0-10 10-10 tablet [facility] 12.5 MG 14:13: 00:00 (12.5 mg Medic al tablet 39 :00 total) by Center mouth 2 (two) times daily with breakfast and dinner. valsartan 2022-06- No 320mg QD Take [address] [facility] (DIOVAN) 0-10 10-10 tablet [facility] 320 MG 14:13: 00:00 (320 mg Medical tablet 39 :00 total) by Center mouth daily. ciprofloxac 2022-06- No 500mg Q.5D Take [address] [facility] [address] [facility] in HCl 0-10 10-10 tablet [facility] (CIPRO) 500 14:13: 00:00 (500 mg Me dical MG tablet 39 :00 total) by Cente r mouth 2 (two) times daily. atorvastati 2022-06- No 40mg QD Take [address] [facility] n (LIPITOR) 0-10 10-10 tablet (40 [facility] 40 MG 14:13: 00:00 mg total) Medica l tablet 39 :00 by mouth Center daily. cloNIDine 2022-06- No .1mg [id number] Take [address] [facility] HCL 0-10 10-10 [id number] tablet [facility] (CATAPRES) 14:13: 00:00 3D (0.1 mg Med ical 0.1 MG 39 :00 total) by Center tablet mouth 3 (three) times daily. carvediloL 2022-06- No 12.5mg Take [address] [facility] [address] [facility] (COREG) 0-10 10-10 tablet [facility] 12.5 MG 14:13: 00:00 (12.5 mg Medic al tablet 39 :00 total) by Center mouth 2 (two) times daily with breakfast and dinner. valsartan 2022-06- No 320mg QD Take [address] [facility] (DIOVAN) 0-10 10-10 tablet [facility] 320 MG 14:13: 00:00 (320 mg Medical tablet 39 :00 total) by Center mouth daily. ciprofloxac 2022-06- No 500mg Q.5D Take [address] [facility] [address] [facility] in HCl 0-10 10-10 tablet [facility] (CIPRO) 500 14:13: 00:00 (500 mg Me dical MG tablet 39 :00 total) by Cente r mouth 2 (two) times daily. atorvastati 2022-06- No 40mg QD Take [address] [facility] n (LIPITOR) 0-10 10-10 tablet (40 [facility] 40 MG 14:13: 00:00 mg total) Medica l tablet 39 :00 by mouth Center daily. cloNIDine 2022-06- No .1mg [id number] Take [address] [facility] HCL 0-10 10-10 [id number] tablet [facility] (CATAPRES) 14:13: 00:00 3D (0.1 mg Med ical 0.1 MG 39 :00 total) by Center tablet mouth 3 (three) times daily. carvediloL 2022-06 No 12.5mg Take [address] [facility] [address] [facility] (COREG) 0-10 10-10 tablet [facility] 12.5 MG 14:13: 00:00 (12.5 mg Medic al tablet 39 :00 total) by Center mouth 2 (two) times daily with breakfast and dinner. valsartan 2022-06 No 320mg QD Take [address] [facility] (DIOVAN) 0-10 10-10 tablet [facility] 320 MG 14:13: 00:00 (320 mg Medical tablet 39 :00 total) by Center mouth daily. ciprofloxac 2022-06 No 500mg Q.5D Take [address] [facility] [address] [facility] in HCl 0-10 10-10 tablet [facility] (CIPRO) 500 14:13: 00:00 (500 mg Me dical MG tablet 39 :00 total) by Cente r mouth 2 (two) times daily. atorvastati 2022-06- No 40mg QD Take [address] [facility] n (LIPITOR) 0-10 10-10 tablet (40 [facility] 40 MG 14:13: 00:00 mg total) Medica l tablet 39 :00 by mouth Center daily. cloNIDine 2022-06- No .1mg Q.[id number] Take [address] [facility] HCL 0-10 10-10 [id number] tablet [facility] (CATAPRES) 14:13: 00:00 3D (0.1 mg Med ical 0.1 MG 39 :00 total) by Center tablet mouth 3 (three) times daily. carvediloL 2022-06- No 12.5mg Take [address] [facility] [address] [facility] (COREG) 0-10 10-10 tablet [facility] 12.5 MG 14:13: 00:00 (12.5 mg Medic al tablet 39 :00 total) by Center mouth 2 (two) times daily with breakfast and dinner. valsartan 2022-06- No 320mg QD Take [address] [facility] (DIOVAN) 0-10 10-10 tablet [facility] 320 MG 14:13: 00:00 (320 mg Medical tablet 39 :00 total) by Center mouth daily. ciprofloxac 2022-06- No 500mg Q.5D Take [address] [facility] [address] [facility] in HCl 0-10 10-10 tablet [facility] (CIPRO) 500 14:13: 00:00 (500 mg [facility] dical [facility]. atorvastati 2022-06- No 40mg QD Take [address] [facility] n (LIPITOR) 0-10 10-10 tablet (40 [facility] 40 MG 14:13: 00:00 mg total) Medica l tablet 39 :00 by mouth Center daily. cloNIDine 2022-06- No .1mg Q.[id number] Take [address] [facility] HCL 0-10 10-10 [id number] tablet [facility] (CATAPRES) 14:13: 00:00 3D (0.1 mg Med ical 0.1 MG 39 :00 total) by Center tablet mouth 3 (three) times daily. carvediloL 2022-06- No 12.5mg Take [address] [facility] [address] [facility] (COREG) 0-10 10-10 tablet [facility] 12.5 MG 14:13: 00:00 (12.5 mg Medic al tablet 39 :00 total) by Center mouth 2 (two) times daily with breakfast and dinner. valsartan 2022-06- No 320mg QD Take [address] [facility] (DIOVAN) 0-10 10-10 tablet [facility] 320 MG 14:13: 00:00 (320 mg Medical tablet 39 :00 total) by Center mouth daily. ciprofloxac 2022-06- No 500mg Q.5D Take [address] [facility] [address] [facility] in HCl 0-10 10-10 tablet [facility] (CIPRO) 500 14:13: 00:00 (500 mg Me dical MG tablet 39 :00 total) by Cente r mouth 2 (two) times daily. atorvastati 2022-06- No 40mg QD Take [address] [facility] n (LIPITOR) 0-10 10-10 tablet (40 [facility] 40 MG 14:13: 00:00 mg total) Medica l tablet 39 :00 by mouth Center daily. atorvastati 2022-06- Yes 80mg QD Take [address] [facility] n (LIPITOR) 0-10 10-09 tablet (80 [facility] 80 MG 00:00: 23:59 mg total) Medica l tablet 00 :00 by mouth Center nightly. carvediloL 2022-06- Yes 25mg Q.5D Take [address] [facility] (COREG) 25 0-10 10-09 tablet (25 Jessica kes MG tablet 00:00: 23:59 mg total) Me dical 00 :00 by mouth 2 Center (two) times daily. atorvastati 2022-06- Yes 80mg QD Take [address] [facility] n (LIPITOR) 0-10 10-09 tablet (80 [facility] 80 MG 00:00: 23:59 mg total) Medica l tablet 00 :00 by mouth Center nightly. carvediloL 2022-06- Yes 25mg Q.5D Take [address] [facility] (COREG) 25 0-10 10-09 tablet (25 Jessica kes MG tablet 00:00: 23:59 mg total) Me dical 00 :00 by mouth 2 Center (two) times daily. atorvastati 2022-06- Yes 80mg QD Take [address] [facility] n (LIPITOR) 0-10 10-09 tablet (80 [facility] 80 MG 00:00: 23:59 mg total) Medica l tablet 00 :00 by mouth Center nightly. carvediloL 2022-06- Yes 25mg Q.5D Take [address] [facility] (COREG) 25 0-10 10-09 tablet (25 Jessica kes MG tablet 00:00: 23:59 mg total) Me dical 00 :00 by mouth 2 Center (two) times daily. atorvastati 2022-06- Yes 80mg QD Take [address] [facility] n (LIPITOR) 0-10 10-09 tablet (80 [facility] 80 MG 00:00: 23:59 mg total) Medica l tablet 00 :00 by mouth Center nightly. carvediloL 2022-06- Yes 25mg Q.5D Take [address] [facility] (COREG) 25 0-10 10-09 tablet (25 Jessica kes MG tablet 00:00: 23:59 mg total) Me dical 00 :00 by mouth 2 Center (two) times daily. atorvastati 2022-06- Yes 80mg QD Take [address] [facility] n (LIPITOR) 0-10 10-09 tablet (80 [facility] 80 MG 00:00: 23:59 mg total) Medica l tablet 00 :00 by mouth Center nightly. carvediloL 2022-06- Yes 25mg Q.5D Take [address] [facility] (COREG) 25 0-10 10-09 tablet (25 Jessica kes MG tablet 00:00: 23:59 mg total) Me dical 00 :00 by mouth 2 Center (two) times daily. atorvastati 2022-06- Yes 80mg QD Take [address] [facility] n (LIPITOR) 0-10 10-09 tablet (80 [facility] 80 MG 00:00: 23:59 mg total) Medica l tablet 00 :00 by mouth Center nightly. carvediloL 2022-06- Yes 25mg Q.5D Take [address] [facility] (COREG) 25 0-10 10-09 tablet (25 Jessica kes MG tablet 00:00: 23:59 mg total) Me dical 00 :00 by mouth 2 Center (two) times daily. acetaminoph 2022-06- Yes 650mg Take [address] [facility] [address] [facility] en 0-10 10-04 tablets [facility] (TYLENOL) 00:00: 23:59 (650 mg Medi montse 325 MG 00 :00 total) by Center tablet mouth every 6 (six) hours for 360 days. acetaminoph 2022-06- Yes 650mg Take [address] [facility] [address] [facility] en 0-10 10-04 tablets [facility] (TYLENOL) 00:00: 23:59 (650 mg Medi montse 325 MG 00 :00 total) by Center tablet mouth every 6 (six) hours for 360 days. acetaminoph 2022-06- Yes 650mg Take [address] [facility] [address] [facility] en 0-10 10-04 tablets [facility] (TYLENOL) 00:00: 23:59 (650 mg Medi montse 325 MG 00 :00 total) by Center tablet mouth every 6 (six) hours for 360 days. acetaminoph 2022-06- Yes 650mg Take [address] [facility] [address] [facility] en 0-10 10-04 tablets [facility] (TYLENOL) 00:00: 23:59 (650 mg Medi montse 325 MG 00 :00 total) by Center tablet mouth every 6 (six) hours for 360 days. acetaminoph 2022-06- Yes 650mg Take [address] [facility] [address] [facility] en 0-10 10-04 tablets [facility] (TYLENOL) 00:00: 23:59 (650 mg Medi montse 325 MG 00 :00 total) by Center tablet mouth every 6 (six) hours for 360 days. acetaminoph 2022-06- Yes 650mg Take [address] [facility] [address] [facility] en 0-10 10-04 tablets [facility] (TYLENOL) 00:00: 23:59 (650 mg Medi montse 325 MG 00 :00 total) by Center tablet mouth every 6 (six) hours for 360 days. polyethylen 2022-06- Yes 17g Q.5D Take [address] [facility] e glycol 0-04-26 by mouth 2 [facility] (GLYCOLAX) 00:00: 23:59 (two) Medic al 17 gram 00 :00 times Center packet daily for 30 days. temazepam 2022-06- Yes 7.5mg QD Take [address] [facility] (RESTORIL) 0-10 04-26 capsule [facility] 7.5 MG 00:00: 23:59 (7.5 mg Medical capsule 00 :00 total) by Center mouth nightly for 30 days. Max Daily Amount: 7.5 mg polyethylen 2022-06- Yes 17g Q.5D Take [address] [facility] e glycol 0-10 - by mouth 2 [facility] (GLYCOLAX) 00:00: 23:59 (two) Medic al 17 gram 00 :00 times Center packet daily for 30 days. temazepam 2022-06- Yes 7.5mg QD Take [address] [facility] (RESTORIL) 0-10 - capsule [facility] 7.5 MG 00:00: 23:59 (7.5 mg Medical capsule 00 :00 total) by Center mouth nightly for 30 days. Max Daily Amount: 7.5 mg polyethylen 2022-06- Yes 17g Q.5D Take [address] [facility] e glycol 0-10 11-09 by mouth 2 [facility] (GLYCOLAX) 00:00: 23:59 (two) Medic al 17 gram 00 :00 times Center packet daily for 30 days. temazepam 2022-06- Yes 7.5mg QD Take [address] [facility] (RESTORIL) 0-10 11-09 capsule [facility] 7.5 MG 00:00: 23:59 (7.5 mg Medical capsule 00 :00 total) by Center mouth nightly for 30 days. Max Daily Amount: 7.5 mg polyethylen 2022-06- Yes 17g Q.5D Take [address] [facility] e glycol 0-10 11-09 by mouth 2 [facility] (GLYCOLAX) 00:00: 23:59 (two) Medic al 17 gram 00 :00 times Center packet daily for 30 days. temazepam 2022-06- Yes 7.5mg QD Take [address] [facility] (RESTORIL) 0-10 11-09 capsule [facility] 7.5 MG 00:00: 23:59 (7.5 mg Medical capsule 00 :00 total) by Center mouth nightly for 30 days. Max Daily Amount: 7.5 mg polyethylen 2022-06- No 17g Q.5D Take [address] [facility] e glycol 0-10 11-09 by mouth 2 [facility] (GLYCOLAX) 00:00: 23:59 (two) Medic al 17 gram 00 :00 times Center packet daily for 30 days. temazepam 2022-06- No 7.5mg QD Take [address] [facility] (RESTORIL) 0-10 11-09 capsule [facility] 7.5 MG 00:00: 23:59 (7.5 mg Medical capsule 00 :00 total) by Center mouth nightly for 30 days. Max Daily Amount: 7.5 mg polyethylen 2022-06- No 17g Q.5D Take [address] [facility] e glycol 0-10 11-09 by mouth 2 [facility] (GLYCOLAX) 00:00: 23:59 (two) Medic al 17 gram 00 :00 times Center packet daily for 30 days. temazepam 2022-06- No 7.5mg QD Take [address] [facility] (RESTORIL) 0-10 11-09 capsule [facility] 7.5 MG 00:00: 23:59 (7.5 mg Medical capsule 00 :00 total) by Center mouth nightly for 30 days. Max Daily Amount: 7.5 mg HYDROcodone 2022-06- No 1{tbl} Take [address] -acetaminop 0-10 10-20 tablet by Jessica pathak ([place]CO 00:00: 23:59 mouth Medic al 7.5-325) 00 :00 every 6 Center 7.5-325 mg (six) per tablet hours as needed for Pain for up to 10 days. Max Daily Amount: 4 tablets HYDROcodone 2022-06- No 1{tbl} Take [address] -acetaminop 0-10 10-20 tablet by Jessica pathak ([place]CO 00:00: 23:59 mouth Medic al 7.5-325) 00 :00 every 6 Center 7.5-325 mg (six) per tablet hours as needed for Pain for up to 10 days. Max Daily Amount: 4 tablets HYDROcodone 2022-06- No 1{tbl} Take [address] -acetaminop 0-10 10-20 tablet by Jessica pathak ([place]CO 00:00: 23:59 mouth Medic al 7.5-325) 00 :00 every 6 Center 7.5-325 mg (six) per tablet hours as needed for Pain for up to 10 days. Max Daily Amount: 4 tablets HYDROcodone 2022-06- No 1{tbl} Take [address] -acetaminop 0-10 10-20 tablet by Jessica pathak ([place] 00:00: 23:59 mouth Medic al 7.5-325) 00 :00 every 6 Center 7.5-325 mg (six) per tablet hours as needed for Pain for up to 10 days. Max Daily Amount: 4 tablets HYDROcodone 2022-06- No 1{tbl} Take [address] -acetaminop 0-10 10-20 tablet by Jessica pathak ([place] 00:00: 23:59 mouth Medic al 7.5-325) 00 :00 every 6 Center 7.5-325 mg (six) per tablet hours as needed for Pain for up to 10 days. Max Daily Amount: 4 tablets HYDROcodone 2022-063- No 1{tbl} Take [address] -acetaminop 0-10 10-20 tablet by Jessica pathak ([place] 00:00: 23:59 mouth Medic al 7.5-325) 00 :00 every 6 Center 7.5-325 mg (six) per tablet hours as needed for Pain for up to 10 days. Max Daily Amount: 4 tablets insulin 2022-06 Yes 30U QD Inject 0.[address] [facility] glargine-li 0-05 mLs (30 [facility] xisenatide 19:27: Units Medica l ([place] 39 total) Center 100/33) 100 subcutaneo unit-33 usly mcg/mL daily. syringe clopidogreL 2022-06 Yes 75mg QD Take [address] [facility] (PLAVIX) 75 0-05 tablet (75 Jessica kes mg tablet 19:27: mg total) Med ical 39 by mouth Center daily. cloNIDine 2022-06 Yes .1mg Q.[id number] Take [address] [facility] HCL 0-05 [id number] tablet [facility] (CATAPRES) 19:27: 3D (0.1 mg Medi montse 0.1 MG 39 total) by Center tablet mouth 3 (three) times daily. carvediloL 2022-06 Yes 12.5mg Take [address] [facility] (COREG) 0-05 tablet [facility] 12.5 MG 19:27: (12.5 mg Medica l tablet 39 total) by Center mouth 2 (two) times daily with breakfast and dinner. valsartan 2022-06 Yes 320mg QD Take [facility] (DIOVAN[facility] 0-05 [facility] 320 MG 19:27: (320 mg Medical tablet 39 total) by Center mouth daily. furosemide 2022-06 Yes 20mg QD Take 1 [facility] (LASIX) 20 0-05 tablet (20 [place] [facility] MG tablet 19:27: mg total) Med ical 39 by mouth Center daily. ciprofloxac 2022-06 Yes 500mg Q.5D Take [address] [facility] in HCl 0-05 tablet [facility] (CIPRO) 500 19:27: (500 mg Med ical MG tablet 39 total) by Cente r mouth 2 (two) times daily. linagliptin 2022-06 Yes 1{tbl} QD Take [address] -metFORMIN 0-05 tablet by Masood martinez ([place] 19:27: mouth Medic al XR) 5-1,000 39 daily At Cent er mg TBph noon. ezetimibe 2022-06 Yes 10mg QD Take [address] [facility] (ZETIA) 10 0-05 tablet (10 [place] [facility] mg tablet 19:27: mg total) Med ical 39 by mouth Center daily At noon. folic acid 2022-06 Yes 1mg QD Take [facility] (FOLV[facility] 1 0-05 tablet (1 [place] [facility] MG tablet 19:27: mg total) Med ical 39 by mouth Center daily. aspirin 81 2022-06 Yes 81mg QD Take [facility] 0-[facility] tablet (81 [facility] tablet 19:27: mg total) Medica l 39 by mouth Center nightly. cinacalcet 2022-06 Yes 30mg QD Take [facility] (SENSIPAR) 0-05 tablet (30 [place] [facility] 30 MG 19:27: mg total) Medical tablet 39 by mouth Center nightly. atorvastati 2022-06 Yes 40mg QD Take [address] [facility] n (LIPITOR) 0-05 tablet (40 Jessica kes 40 MG 19:27: mg total) Medical tablet 39 by mouth Center daily. cinacalcet Yes [id number] TAKE 1 [facility] (SENSIPAR) 3-[address] 30 [facility]:00[facility] 00 TWICE A l DAY cinacalcet Yes [id number] TAKE 1 [facility] (SENSIPAR) 3-[address] 30 MG 00:00: [facility] tablet 00 TWICE A l DAY cinacalcet 0 Yes [id number] TAKE 1 [facility] (SENSIPAR) 3-[address] 30 MG 00:00: [facility] tablet 00 TWICE A l DAY cinacalcet 0 Yes [id number] TAKE 1 [facility] (SENSIPAR) 3-[address] 30 MG 00:00: [facility] tablet 00 TWICE A l DAY cinacalcet 0 Yes [id number] TAKE 1 [facility] (SENSIPAR) 3-[address] 30 MG 00:00: [facility]TH [facility] tablet 00 TWICE A l DAY cinacalcet 2022-0 Yes [id number] TAKE 1 [facility] (SENSIPAR) 3-[address] 30 MG 00:00: [facility] tablet 00 TWICE A l DAY cinacalcet 2022-0 2022- No [id number] TAKE 1 [facility] (SENSIPAR) 3-15 - TABLET BY [facility] 30 MG 00:00: 14:33 [facility]TH [facility] tablet 00 :32 TWICE A l DAY cinacalcet 2022-0 2022- No [id number] TAKE 1 [facility] (SENSIPAR) 3-15 - TABLET BY [facility] 30 MG 00:00: 14:33 [facility] tablet 00 :32 TWICE A l DAY cinacalcet 2022-0 2022- No [id number] TAKE 1 [facility] (SENSIPAR) 3-15 - TABLET BY [facility] 30 MG 00:00: 14:33 [facility]TH [facility] tablet 00 :32 TWICE A l DAY cinacalcet 2022-0 Yes [id number] TAKE 1 [facility] (SENSIPAR) -[address] 30 MG 00:00: [facility]TH [facility] tablet 00 TWICE A l DAY cinacalcet 2022-0 2022- No [id number] TAKE 1 [facility] (SENSIPAR) 07-06-[address] 30 MG 00:00: 00:00 [facility] tablet 00 :00 TWICE A l DAY cinacalcet 2022-0 3- No [id number] TAKE 1 [facility] (SENSIPAR) 07-06-[address] 30 MG 00:00: 00:00 [facility] tablet 00 :00 TWICE A l DAY cinacalcet 2022-0 2022- No [id number] TAKE 1 [facility] (SENSIPAR) 07-06-[address] 30 MG 00:00: 00:00 [facility] tablet 00 :00 TWICE A l DAY cinacalcet 2022-0 3- No [id number] TAKE 1 [facility] (SENSIPAR) 07-06-[address] 30 MG 00:00: 00:00 [facility] tablet 00 :00 TWICE A l DAY cinacalcet 2023-0 2023- No [id number] TAKE 1 [facility] (SENSIPAR) 07-06-[address] 30 MG 00:00: 00:00 [facility] tablet 00 :00 TWICE A l DAY cinacalcet 2022- No [id number] TAKE 1 [facility] (SENSIPAR) 07-[address] 30 MG 00:00: 00:00 [facility] tablet 00 :00 TWICE A l DAY cinacalcet 2022- No [id number] TAKE 1 [facility] (SENSIPAR) 07-[address] 30 MG 00:00: 00:00 [facility]TH [facility] tablet 00 :00 TWICE A l DAY cinacalcet 2022- No [id number] TAKE 1 [facility] (SENSIPAR) 07-[address] 30 MG 00:00: 00:00 [facility] tablet 00 :00 TWICE A l DAY cinacalcet 2022- No [id number] TAKE 1 [facility] (SENSIPAR) 07-[address] 30 MG 00:00: 00:00 [facility] tablet 00 :00 TWICE A l DAY cinacalcet 2021-06- No [id number] TAKE 1 [facility] (SENSIPAR) 08-[address] 30 MG 00:00: 18:04 [facility]TH [facility] tablet 00 :09 TWICE A l DAY cinacalcet 2021-06- No [id number] TAKE 1 [facility] (SENSIPAR) 08-[address] 30 MG 00:00: 18:04 [facility]OUTH [facility] tablet 00 :09 TWICE A l DAY cinacalcet 2021-06- No [id number] TAKE 1 [facility] (SENSIPAR) 08-[address] 30 MG 00:00: 18:04 [facility]TH [facility] tablet 00 :09 TWICE A l DAY cinacalcet 2021-06- No [id number] TAKE 1 [facility] (SENSIPAR) 08-[address] 30 MG 00:00: 18:04 [facility]TH [facility] tablet 00 :09 TWICE A l DAY cinacalcet 2021-06- No [id number] TAKE 1 [facility] (SENSIPAR) 08-[address] 30 MG 00:00: 18:04 [facility]TH [facility] tablet 00 :09 TWICE A l DAY cinacalcet 2021-06- No [id number] TAKE 1 [facility] (SENSIPAR) 08-[address] 30 MG 00:00: 18:04 [facility]TH [facility] tablet 00 :09 TWICE A l DAY cinacalcet 2021-06- No [id number] TAKE 1 [facility] (SENSIPAR) 08-[address] 30 MG 00:00: 18:04 [facility]TH [facility] tablet 00 :09 TWICE A l DAY cinacalcet 2021-06- No [id number] TAKE 1 [facility] (SENSIPAR) 08-[address] 30 MG 00:00: 18:04 [facility] tablet 00 :09 TWICE A l DAY cinacalcet 2021-06- No [id number] TAKE 1 [facility] (SENSIPAR) 08-[address] 30 MG 00:00: 18:04 [facility] tablet 00 :09 TWICE A l DAY cinacalcet 2021-06- No [id number] TAKE 1 [facility] (SENSIPAR) 08-[address] 30 MG 00:00: 18:04 [facility] tablet 00 :09 TWICE A l DAY cinacalcet 2021-06- No [id number] TAKE 1 [facility] (SENSIPAR) 07-[address] 30 MG 00:00: 00:00 [facility] tablet 00 :00 TWICE A l DAY cinacalcet 2021-06- No [id number] TAKE 1 [facility] (SENSIPAR) 07-[address] 30 MG 00:00: 00:00 [facility] tablet 00 :00 TWICE A l DAY cinacalcet 2021-06- No [id number] TAKE 1 [facility] (SENSIPAR) 07-[address] 30 MG 00:00: 00:00 [facility] tablet 00 :00 TWICE A l DAY cinacalcet 2021-06- No [id number] TAKE 1 [facility] (SENSIPAR) 07-[address] 30 MG 00:00: 00:00 [facility] tablet 00 :00 TWICE A l DAY cinacalcet 2021-06- No [id number] TAKE 1 [facility] (SENSIPAR) 07-[address] 30 MG 00:00: 00:00 [facility] tablet 00 :00 TWICE A l DAY cinacalcet 2021-06- No [id number] TAKE 1 [facility] (SENSIPAR) 07-[address] 30 MG 00:00: 00:00 [facility] tablet 00 :00 TWICE A l DAY cinacalcet 2021-06- No [id number] TAKE 1 [facility] (SENSIPAR) 07-[address] 30 MG 00:00: 00:00 [facility] tablet 00 :00 TWICE A l DAY cinacalcet 2021-06- No [id number] TAKE 1 [facility] (SENSIPAR) 07-[address] 30 MG 00:00: 00:00 [facility] tablet 00 :00 TWICE A l DAY cinacalcet 2021-06- No [id number] TAKE 1 [facility] (SENSIPAR) 07-[address] 30 MG 00:00: 00:00 [facility] tablet 00 :00 TWICE A l DAY cinacalcet 2021-06- No [id number] TAKE 1 [facility] (SENSIPAR) 07-[address] 30 MG 00:00: 00:00 [facility] tablet 00 :00 TWICE A l DAY cinacalcet 2021-06- No [id number] TAKE 1 [facility] (SENSIPAR) 0-11 05- TABLET BY st 30 MG 00:00: 00:00 [facility] tablet 00 :00 TWICE A l DAY cinacalcet 2021-06- No [id number] TAKE 1 [facility] ([facility]) 0-24 - TABLET BY st 30 MG 00:00: 00:00 [facility] tablet 00 :00 TWICE A l DAY cinacalcet 2021-06- No [id number] TAKE 1 [facility] ([facility]) 0-24 - TABLET BY st 30 MG 00:00: 00:00 [facility] tablet 00 :00 TWICE A l DAY cinacalcet 2021-06- No [id number] TAKE 1 [facility] ([facility]) 0-24 - TABLET BY st 30 MG 00:00: 00:00 [facility] tablet 00 :00 TWICE A l DAY cinacalcet 2021-06 No [id number] TAKE 1 [facility] ([facility]) 0-24 - TABLET BY st 30 MG 00:00: 00:00 [facility] tablet 00 :00 TWICE A l DAY cinacalcet 2021-06- No [id number] TAKE 1 [facility] ([facility]) 0-24 - TABLET BY st 30 MG 00:00: 00:00 [facility] tablet 00 :00 TWICE A l DAY cinacalcet 2021-06- No [id number] TAKE 1 [facility] ([facility]) 0-24 - TABLET BY st 30 MG 00:00: 00:00 [facility] tablet 00 :00 TWICE A l DAY cinacalcet 2021-06- No [id number] TAKE 1 [facility] ([facility]) 0-24 - TABLET BY st 30 MG 00:00: 00:00 [facility] tablet 00 :00 TWICE A l DAY cinacalcet 2021-06- No [id number] TAKE 1 [facility] ([facility]) 0-24 - TABLET BY st 30 MG 00:00: 00:00 [facility] tablet 00 :00 TWICE A l DAY cinacalcet 2021-06- No [id number] TAKE 1 [facility] (SENSIPAR) 0-24 - TABLET [...] carvedilol Yes carvedilol [facility] (Coreg) 25 - 25 mg [facility] MG tablet 09:37: tablet [...] TWICE A DAY dulaglutide Yes [facility] (Trulicity) 6-13 Health 0.75 09:37: MG/0.5ML 15 solution pen-injecto r Dulaglutide Yes Trulicity [facility] (Trulicity) 11-28 3 mg/0.5 Heal th 3 MG/0.5ML 09:37: mL solution 15 subcutaneo pen-injecto us pen r injector INJECT 3 MG (ONE PEN) EVERY WEEK BY SUBCUTANEO US ROUTE DIRECTED FOR 90 DAYS. empaglifloz Yes QD 1 (one) [facility] in - time each [facility] ([place]) 09:37: day. 25 [...] 15 100 UNIT/ML injection HYDROcodone 2021- No [id number] 1{tbl} Q6H Take 1 [facility] -acetaminop 11-28-19 tablet by Manolo pathak ([place]) 00:00: 04:59 mouth 5-325 MG 00 :00 every 6 tablet (six) hours if needed for severe pain for up to 5 days. cinacalcet Yes cinacalcet [facility] (Sensipar) 1-31 30 mg [facility] 30 MG 00:00: tablet tablet 00 TAKE 1 TABLET BY MOUTH TWICE A DAY cinacalcet 2021- No [id number] TAKE 1 [facility] ([facility]ENS[facility]) 1-31 10-[address] 30 MG 00:00: 00:00 [facility] tablet 00 :00 TWICE A l DAY cinacalcet 2021- No [id number] TAKE 1 [facility] (SENSIPAR) 1-31 10-[address] 30 MG 00:00: 00:00 [facility] tablet 00 :00 TWICE A l DAY cinacalcet 2021- No [id number] TAKE 1 [facility] (SENSIPAR) 1-31 10-[address] 30 MG 00:00: 00:00 [facility]OUTH [facility] tablet 00 :00 TWICE A l DAY cinacalcet 2021- No [id number] TAKE 1 [facility] (SENSIPAR) 1-31 10-[address] 30 MG 00:00: 00:00 MOUTH [facility] tablet 00 :00 TWICE A l DAY cinacalcet 2021- No [id number] TAKE 1 [facility] (SENSIPAR) 1-31 10-[address] 30 MG 00:00: 00:00 MOUTH [facility] tablet 00 :00 TWICE A l DAY cinacalcet 2021- No [id number] TAKE 1 [facility] (SENSIPAR) -31 10-[address] 30 MG 00:00: 00:00 MOUTH [facility] tablet 00 :00 TWICE A l DAY cinacalcet 2021- No [id number] TAKE 1 [facility] (SENSIPAR) 07-18-[address] 30 MG 00:00: 00:00 MOUTH [facility] tablet 00 :00 TWICE A l DAY cinacalcet 0 2021- No [id number] TAKE 1 [facility] (SENSIPAR) 07-[address] 30 MG 00:00: 00:00 MOUTH [facility] tablet 00 :00 TWICE A l DAY cinacalcet 2021- No [id number] 30mg Q.5D Take 1 [facility] (SENSIPAR) 07-13 [...] Hospita U-100 24 l INSULIN SUBQ) insulin 0 Yes Inject [facility] degludec 6-17 under the [...] THREE l TIMES A DAY gabapentin gabapentin No gabapentin Arlin 300 [...] 00 THREE l TIMES A DAY ACCU-CHEK 2018- Yes Q.5D 2 (two) Metho di FIOR [...] 00 testing l strips ACCU-CHEK 2019-0 Yes Q.5D 2 (two) Metho di FIOR PLUS 6-[address] TEST STRP 00:00: day. for [facility]osp gladys strip test 00 testing l strips ACCU-CHEK 2019-0 Yes USE [facility] MULTICLIX 6-[address] LANCET 00:00: TWICE A Hospita lancets 00 DAY, l DIAGNOSIS E11.9 ACCU-CHEK 2019-0 Yes USE [facility] MULTICLIX [...] 6-[address] 00:00: daily. Hospita l TRADJENTA 5 2019-0 Yes 5mg QD [...] tablet 6-[address] [facility] 2018-0 Yes 5mg QD Take 5 mg M [facility] mg tablet 6-[address] [facility] TR[facility] 5 2018-0 Yes 5mg QD Take 5 mg M [facility] mg tablet 6-[address] 00:00: daily. Hospita l TRADJENTA 5 2018-0 Yes 5mg QD Take 5 mg M [facility] mg tablet 6-[address] [facility] TR[facility] 5 2018-0 Yes 5mg QD Take 5 mg M [facility] mg tablet 6-[address] [facility] Tr[facility]enta 5 Tradjenta 5 2018-0 No 5mg Tradjenta Arlin mg tablet 5 mg tablet 5 6-13 5 mg O rthope mg by oral mg by oral 00:00: tablet 5 dic route. route. 00 mg by oral Sport s route. Medicin e VITAMIN D2 2018-0 Yes TAKE ONE Met [facility] 50,000 unit 6-[address] capsule 00:00: MOUTH ONE Hospi ta 00 TIME PER l WEEK VITAMIN D2 2018-0 Yes TAKE ONE [facility] 50,000 unit 6-[address] capsule 00:00: MOUTH ONE Hospi ta 00 TIME PER l WEEK VITAMIN D2 2018-0 Yes TAKE ONE Met [facility] 50,000 unit 6-[address] capsule 00:00: MOUTH ONE Hospi ta 00 TIME PER l WEEK VITAMIN D2 2018-0 Yes TAKE ONE Met [facility]odi 50,000 unit 6-[address] capsule 00:00: MOUTH ONE Hospi ta 00 TIME PER l WEEK VITAMIN D2 2018-0 Yes TAKE ONE Met [facility] 50,000 unit 6-[address] capsule 00:00: MOUTH ONE Hospi ta 00 TIME PER l WEEK VITAMIN D2 2018-0 Yes TAKE ONE Met [facility] 50,000 unit 6-[address] capsule 00:00: MOUTH ONE Hospi ta 00 TIME PER l WEEK VITAMIN D2 2018- Yes TAKE ONE Met [...] unit) (50,000 e capsule capsule unit) capsule metFORMIN Yes TAKE 1 Method i XR [...] e diagnostic diagnostic diagnostic strips strips strips SOLIQUA Yes INJECT [facility] 100/33 100 5-13 [...] MORNING AND INCREASE TO 60 DIRECTED SOLIQUA 2018- Yes INJECT [facility] 100/33 100 5-[address] unit-33 00:00: SKIN 30 Hospita mcg/mL 00 UNITS l insulin pen EVERY MORNING AND INCREASE TO 60 DIRECTED SOLIQUA 2018- Yes INJECT [facility] 100/33 100 5-[address] unit-33 00:00: SKIN 30 Hospita mcg/mL 00 UNITS l insulin pen EVERY MORNING AND INCREASE TO 60 DIRECTED SOLIQUA 2018- Yes INJECT [facility] 100/33 100 5-[address] unit-33 00:00: SKIN 30 Hospita mcg/mL 00 UNITS l insulin pen EVERY MORNING AND INCREASE TO 60 DIRECTED SOLIQUA 2019-0 Yes INJECT [facility] 100/33 100 5-13 UNDER [...] insulin us insulin e pen pen pen cyclobenzap cyclobenzap No cyclobenza Arlin rine 10 mg rine 10 mg 1-12 david 10 [facility] tablet 1 po tablet 1 po 00:00: mg tablet dic tab TID for tab TID for 00 1 po tab Sports spasms as spasms as TID for Me dicin needed needed spasms as e needed [place] 10 [place] 10 No [place] 10 A zalea mg-325 mg mg-325 mg [...] dicin needed needed spasms as e needed [place] 10 [place] 10 No [place] 10 A zalea mg-325 mg mg-325 mg [...] dicin needed needed spasms as e needed [place] 10 [place] 10 No [place] 10 A zalea mg-325 mg mg-325 mg [...] dicin needed needed spasms as e needed [place] 10 [place] 10 No [place] 10 A zalea mg-325 mg mg-325 mg [...] dicin needed needed spasms as e needed [place] 10 [place] 10 No [place] 10 A zalea mg-325 mg mg-325 mg 1-12 mg-325 mg [facility] tablet 1 Q tablet 1 Q 00:00: tablet 1 Q dic 4-6 HRS PRN 4-6 HRS PRN 00 4-6 HRS Sports PAIN PAIN PRN PAIN Medicin e Lipitor No Notes: Memoria 8 (Same As: l 02:00: Lipitor) Luke 00 Acetaminoph Yes 1 tab, PO, Memoria en 325 MG / 8-29 Q6H, PRN l Hydrocodone 12:49: pain, # 90 Luke Bitartrate 00 tab, 0 10 MG Oral Refill(s), Tablet given to [[place] patient 10] morphine 15 Yes 15 mg [...] muscle spasm, # 45 tab, 0 Refill(s) baclofen 10 baclofen 10 No baclofen Arlin mg tablet mg tablet 8-29 10 mg Orth ope 00:00: tablet dic 00 Sports Medicin e baclofen 10 baclofen 10 No baclofen Arlin mg tablet mg tablet 8-29 10 mg Orth ope 00:00: tablet dic 00 Sports Medicin e MS Contin No Notes: Do Mem oria 02-12 not crush l 02:00: (Same [place] as:Eva aburto SR, MS Contin) MS Contin MS Contin No MS Contin Arlin 02-12 Orthope 00:00: dic 00 Sports Medicin e MS Contin MS Contin No MS Contin Arlin 02-12 Orthope 00:00: dic 00 Sports Medicin e Lipitor No Notes: Memoria 8 (Same As: l 02:00: Lipitor) [place] 00 Tylenol No Notes: Do Memor ia 02-10 not exceed l 23:00: 4 gm/day. [place] (Same as: Tylenol) Bisacodyl No Notes: Memori a 02-10 (Same As: l 22:47: Dulcolax, [place] 00 Correctol) (Do Not Crush) "Do Not Crush" Docusate No Notes: Memoria 02-10 (Same as: l 22:00: Colace) (Do Not Crush) Simethicone No Notes: Boy andrés 02-10 (Same as: l 21:04: Mylicon) Bisacodyl No Notes: Memori a 02-10 (Same As: l 21:04: Dulcolax, Bisco-Lax) Baclofen No Notes: Memoria 02-10 (Same As: l 14:00: Lioresal) Dilaudid No Notes: Memoria 02-09 (Same as: l 22:54: Dilaudid) Acetaminoph No Notes: Boy andrés en 325 MG / 02-09 (Same as: l Hydrocodone 22:52: [place] Anirta nn Bitartrate 00 325/5) Do 5 MG Oral not exceed Tablet 4gm/day of [[place] acetaminop 5/325] hen. Dilaudid Dilaudid No Dilaudid A zalea 825 Orthope 00:00: dic Sports Medicin e [place] 5 [place] 5 No [place] 5 Azal ea mg-325 mg mg-325 mg 8-25 mg-325 mg [facility] tablet tablet 00:00: tablet dic Sports Medicin e Dilaudid Dilaudid No Dilaudid A zalea 825 Orthope 00:00: dic 00 Sports Medicin e [place] 5 [place] 5 No [place] 5 Azal ea mg-325 mg mg-325 mg 8-25 mg-325 mg [facility] tablet tablet 00:00: tablet dic Sports Medicin e tradjenta No tradjenta Me moria 8-24 5 mg, 1 l 20:00: tab, Drug form: MISC, Route: PO, Daily, 02/09/16 15:00:00 CDT, Duration: 30 day, Stop date: 03/10/16 9:00:00 CDT Rosuvastati Yes 2.5 mg, Mem oria n calcium 5 8-24 PO, l MG Oral 16:18: Bedtime, # Herm robert Tablet 00 30 tab, 0 [Crestor] Refill(s) Sodium No 25 mL, Memoria Chloride 8-24 Route: IV, l 0.9% IV 15:15: Start date: 02/09/16 10:15:00 CDT, Duration: 30 day, Stop date: 03/10/16 10:14:00 CDT, PRN Line Flush BD Normal No Notes: Memori a Saline 8-24 (Same as: l Flush 15:15: BD Posiflush) Spironolact No Notes: Boy andrés one 8-24 (Same As: l 14:00: Aldactone) irbesartan No Notes: Memor ia 8-24 (Same l 14:00: as:Avapro) Tradjenta No 5 mg, Memoria 8-24 Route: PO, l 14:00: Drug form: [place] 00 TAB, Daily, Dosing Weight 89.545, kg, [...] Roll in l Human 06:52: palms of [place] 00 hands gently; Do not shake vigorously . (Same as: NovoLOG) "single patient use only" WASTE: F/P - Black; E - Municipal Trash Bin Stable for 28 days at room temperatur e. Expires in days from ____Date Glucagon No 1 mg, Memoria 8-24 Route: IM, l 06:52: Drug form: [place] 00 PDR/INJ, PRN, Dosing Weight 89.545, kg, PRN Blood Glucose Results, Start date: 02/09/16 1:52:00 CDT, Duration: 30 day, Stop date: 03/10/16 1:51:00 CDT Dextrose No 25 gm, 50 Boy andrés 50% Syringe 8-24 mL, Route: l 06:52: IVP, Drug Form: INJ, Dosing Weight 89.545, kg, PRN, PRN Blood Glucose Results, Start date: 02/09/16 1:52:00 CDT, Duration: 30 day, Stop date: 03/10/16 1:51:00 CDT Crestor No Route: PO, Boy andrés 8-24 Drug form: l 02:00: TAB, [place] 00 Bedtime, Dosing Weight 89.545, kg, Start [...] food. Luke 00 (Same As: Coreg) Crestor 5 Crestor 5 No Crestor 5 Arlin mg tablet mg tablet 8-24 mg tablet Orthope 00:00: dic 00 Sports Medicin e Lantus Lantus No Lantus Arlin U-100 U-100 8-24 U-100 Orthope Insulin 100 Insulin 100 00:00: Insulin dic unit/mL unit/mL 00 100 Sports subcutaneou subcutaneou unit/mL Medicin s solution s solution subcutaneo e us solution Crestor 5 Crestor 5 No Crestor 5 Arlin mg tablet mg tablet 8-24 mg tablet Orthope 00:00: dic 00 Sports Medicin e Lantus Lantus No Lantus Arlin U-100 U-100 8-24 U-100 Orthope Insulin 100 Insulin 100 00:00: Insulin dic unit/mL unit/mL 00 100 Sports subcutaneou subcutaneou unit/mL Medicin s solution s solution subcutaneo e us solution Docusate Yes 100 mg = 1 Mem oria Sodium 100 8-23 cap, PO, l MG Oral 23:47: BID, 0 [place] Capsule 00 Refill(s) [Colace] Linagliptin No 5 mg = 1 Me moria 5 MG Oral 8-23 tab, PO, l Tablet 23:47: Daily, 0 [place] [Tradjenta] 00 Refill(s) 3 ML Yes 50 [...] 8-23 (Same As: l chloride 23:00: Ancef, [place] 0.9% INJ 00 Kefzol) 100 mL MEDICATION WASTE Product Size: 1000 mg Product Wasted: ___ mg Docusate No Notes: Memoria Sodium 100 8-23 (Same as: l MG Oral 22:00: Colace) [place] Capsule 00 (Do Not [Colace] Crush) Ofirmev No 1,000 mg, Memor ia 02-07 Route: IV, l 19:25: ONCE, Luke 00 Dosing Weight 89, kg, Start date: 02/08/16 14:25:00 CDT, Stop date: 02/08/16 14:25:00 CDT Ondansetron No Notes: Boy andrés 02-07 (Same as: l 18:22: Zofran) Luke 00 MEDICATION WASTE Product Size: 4 mg Product Wasted: ___ mg Flumazenil No Notes: Memor ia 02-07 (Same as: l 18:22: Romazicon) [place] 00 Naloxone No Notes: Memoria 02-07 Same [...] Luke 00 Basal rate: 4hr limit: (Same as:Norma lamb) Naloxone No Notes: Memoria 02-07 Same as l 17:53: Narcan Acetaminoph No Notes: Do M emoria en 325 MG / 02-07 not exceed l Hydrocodone 17:53: 4gm/day of Luke Bitartrate 00 acetaminop 10 MG Oral hen. (Same Tablet as: [place] [[place] 325/10) 10/325] Zofran No Notes: Memoria 02-07 (Same as: l 17:53: Zofran) [place] 00 MEDICATION WASTE Product Size: 4 mg Product Wasted: ___ mg Diphenhydra No Notes: Boy andrés mine 02-07 (Same as: l 17:52: Benadryl) phenol No Notes: Memoria 02-07 Chlorasept l 17:52: ic [place] (Same as: Chlorasept ic, Sore Throat [place]) WASTE: F/P - Black; E - Municipal Trash Bin Robaxin No Notes: Memoria 02-07 (Same l 17:52: as:Robaxin ) Lactated No 1,000 mL, Boy andrés Ringers 02-07 Rate: 75 l 1,000 mL 17:52: ml/hr, Infuse over: 13.3 hr, Route: IV, Dosing Weight 89.545 kg, Total Volume: 1,000, Start date: 02/08/16 12:52:00 CDT, Duration: 30 day, Stop date: 03/09/16 12:51:00 CDT Flexeril No Notes: Memoria 02-07 (Same As: l 17:52: Flexeril) ceFAZolin No Notes: Memori a 02-07 Same as: l 03:00: Ancef 0.9 % 0.9 % No 0.9 % Arlin sodium sodium 02-07 sodium Orthope chloride chloride 00:00: chloride d ic (with (with 00 (with Sports phenol) phenol) phenol) Medici n injection injection injection e solution solution solution Colace 100 Colace 100 No Colace 100 Arlin mg capsule mg capsule 02-07 mg capsule Orthope 00:00: dic 00 Sports Medicin e Flexeril Flexeril No Flexeril A zalea 02-07 Orthope 00:00: dic 00 Sports Medicin e Lantus Lantus No Lantus Arlin Solostar Solostar 02-07 Solostar Ort hope U-100 U-100 00:00: U-100 dic Insulin 100 Insulin 100 00 Insulin Sports unit/mL (3 unit/mL (3 100 Med icin mL) mL) unit/mL (3 e subcutaneou subcutaneou mL) s pen s pen subcutaneo us pen [facility] No irmev Azal ea 02-07 Orthope 00:00: dic 00 Sports Medicin e Robaxin Robaxin No Robaxin Azal ea 02-07 Orthope 00:00: dic 00 Sports Medicin e Zofran Zofran No Zofran Arlin 02-07 Orthope 00:00: dic 00 Sports Medicin e 0.9 % 0.9 % No 0.9 % Arlin sodium sodium 02-07 sodium Orthope chloride chloride 00:00: chloride d ic (with (with 00 (with Sports phenol) phenol) phenol) Medici n injection injection injection e solution solution solution Colace 100 Colace 100 No Colace 100 Arlin mg capsule mg capsule 02-07 mg capsule Orthope 00:00: dic 00 Sports Medicin e Flexeril Flexeril No Flexeril A zalea 02-07 Orthope 00:00: dic 00 Sports Medicin e Lantus Lantus No Lantus Arlin Solostar Solostar 02-07 Solostar Ort hope U-100 U-100 00:00: U-100 dic Insulin 100 Insulin 100 00 Insulin Sports unit/mL (3 unit/mL (3 100 Med icin mL) mL) unit/mL (3 e subcutaneou subcutaneou mL) s pen s pen subcutaneo us pen [facility] No [facility] Azal ea 02-07 Orthope 00:00: dic 00 Sports Medicin e Robaxin Robaxin No Robaxin Azal ea 02-07 Orthope 00:00: dic 00 Sports Medicin e Zofran Zofran No Zofran Arlin 02-07 Orthope 00:00: dic 00 Sports Medicin e carvedilol Yes 12.5 mg = Me moria 12.5 mg 01-18 1 tab, PO, l oral tablet 18:26: Q12H, 0 Her kowalski 00 Refill(s) Acetaminoph No Notes: Boy andrés en 325 MG / 01-17 Same as l Hydrocodone 14:32: [place] Anitra nn Bitartrate 00 325-7.5mg 7.5 MG Oral Do not Tablet exceed [[place] 4gm/day of 7.5/325] acetaminop hen. sodium No 15 mmol, 5 Memor ia phosphate + 8-01 mL, Route: l sodium 21:42: IVPB, PRN, Anitra nn chloride 00 Dosing 0.9% INJ Weight 250 mL 97.983, kg, PRN Abnormal Lab Result, Start date: 01/17/16 16:42:00 CDT, Stop date: 02/16/16 16:41:00 CDT heparin No Notes: Memoria sodium, 01-15 porcine l porcine 02:00: heparin [place] 2500 UNT/ML 00 Injectable Solution gabapentin No Notes: Memor ia 300 MG Oral 01-15 (Same as: l Capsule 00:22: Neurontin) Herm heparin, heparin, No heparin, A zalea porcine porcine - porcine Orthop e (PF) 25,000 (PF) 25,000 00:00: (PF) dic unit/10 mL unit/10 mL 00 25,000 S ports intravenous intravenous unit/10 mL Medicin solution solution intravenou e s solution heparin, heparin, No heparin, A zalea porcine porcine 7- porcine Orthop e (PF) 25,000 (PF) 25,000 00:00: (PF) dic unit/10 mL unit/10 mL 00 25,000 S ports intravenous intravenous unit/10 mL Medicin solution solution intravenou e s solution Insulin, No Notes: Memoria Aspart, 01-13 Roll in l Human 21:30: palms of Luke 00 hands gently; Do not shake vigorously . (Same as: NovoLOG) "single patient use only" WASTE: F/P - Black; E - Municipal Trash Bin Stable for 28 days at room temperatur e. Expires in days from ____Date Hydralazine No Notes: Boy andrés 01-13 (Same as: l 19:44: Apresoline ) Push over 5 minutes Ativan No Notes: Memoria - (Same as: l 20:06: Ativan) Acetaminoph 2016-0 No 1 tab, Boy andrés en 325 MG / 01-12 Route: PO, l Hydrocodone 20:05: Drug Form: [place] Bitartrate 00 TAB, 10 MG Oral Dosing Tablet Weight [[place] 97.983, 10/325] kg, Q4H, Start date: 01/13/16 15:05:00 CDT, Stop date: 02/12/16 16:00:00 CDT Miralax No Notes: Memoria 01-12 Dissolve l 14:11: in 8 oz of [place] 00 water or juice. (Same as: Miralax) Ativan Ativan No Ativan Arlin 01-12 Orthope 00:00: dic 00 Sports Medicin e Miralax Miralax No Miralax Azal ea 01-12 Orthope 00:00: dic 00 Sports Medicin e Ativan Ativan No Ativan Arlin 01-12 Orthope 00:00: dic 00 Sports Medicin e Miralax Miralax No Miralax Azal ea 01-12 Orthope 00:00: dic 00 Sports Medicin e Lorazepam No 0.5 mg, Memor ia 01-11 Route: l 15:44: IVP, Drug form: INJ, ONCE, Dosing Weight 97.983, kg, PRN Anxiety, Priority: NOW, Start date: 01/12/16 10:44:00 CDT Tradjenta No 5 mg, Memoria 01-11 Route: PO, l 14:00: Drug form: Luke 00 TAB, Daily, Dosing Weight 97.983, kg, Start date: 01/12/16 9:00:00 CDT irbesartan No Notes: Memor ia - (Same l 14:00: as:Avapro) Furosemide No Notes: Memor ia 20 MG Oral 01-11 (Same as: l Tablet 14:00: Lasix) October cause GI upset. Give with food or milk. glimepiride No Notes: Boy andrés - (Same as: l 14:00: Amaryl) [place] 00 Tradjenta 5 No Tradjenta M emoria mg 7-27 5 mg l (Patient's 14:00: (Patient's H ermann own 00 own medicine) medicine), 1 tab, Drug form: MISC, Route: PO, Daily, 01/12/16 9:00:00 CDT, Duration: 30 day, Stop date: 02/10/16 9:00:00 CDT Aspirin 81 No Notes: Do Me moria MG Enteric 01-11 not crush l Coated 14:00: or chew. [place] Tablet (Same As: Ecotrin) Amlodipine No Notes: Memor ia 01-11 (Same as: l 14:00: Norvasc) Luke Docusate No Notes: Memoria 01-11 (Same as: l 14:00: Colace) Luke (Do Not Crush) Spironolact No Notes: Boy andrés one 01-11 (Same As: l 14:00: Aldactone) [...] ia 01-11 Give with l 02:00: food. [place] 00 (Same As: Coreg) Crestor No Route: PO, Boy andrés 01-11 Drug form: l 02:00: TAB, [place] Bedtime, Dosing Weight 97.983, kg, Start date: 01/11/16 21:00:00 CDT, Duration: 30 day, Stop date: 02/09/16 21:00:00 CDT Tradjenta Tradjenta No Tradjenta Arlin 01-11 Orthope 00:00: dic 00 Sports Medicin e Tradjenta Tradjenta No Tradjenta Arlin 01-11 Orthope 00:00: dic 00 Sports Medicin e Acetaminoph No Notes: Do M emoria en 325 MG / 01-10 not exceed l Hydrocodone 23:00: 4gm/day of [place] Bitartrate 00 acetaminop 10 MG Oral hen. Tablet (Same as: [[place] 10/325] 325/10) Enoxaparin No Notes: Memor ia - (Same as: l 23:00: Lovenox) [place] 00 Clonidine No Notes: Memori a Hydrochlori 01-10 (Same As: l de 0.1 MG 22:56: Catapres) Her kowalski Oral Tablet 00 Sodium No 1,000 mL, Memori a Chloride 01-10 Rate: 45 l 0.154 22:53: ml/hr, [place] MEQ/ML 00 Infuse Injectable over: 22.2 Solution hr, Route: IV, Dosing Weight 97.983 kg, Total Volume: 1,000, Start date: 01/11/16 17:53:00 CDT, Duration: 30 day, Stop date: 02/10/16 17:52:00 CDT Saline No Notes: Memoria Flush 0.9% 01-10 (Same as: l 22:53: BD [place] 00 Posiflush) Morphine No Notes: Memoria 01-10 (Same l 22:53: as:MORPhin [place] 00 e Sulfate) Ondansetron No Notes: Boy andrés 01-10 (Same as: l 22:53: Zofran) [place] 00 MEDICATION WASTE Product Size: 4 mg Product Wasted: ___ mg Acetaminoph No 100.4 F, M emoria en - Start l 22:53: date: Luke 00 01/11/16 17:53:00 CDT, Duration: 30 day, Stop date: 02/10/16 17:52:00 CDT irbesartan Yes 300 mg = 1 M emoria 300 mg oral 7-26 tab, PO, l tablet 22:27: Daily, # [place] 00 30 tab, 0 Refill(s) Co Q-10 [...] a 7-26 IntlUnit, l 22:21: PO, Daily, [place] 00 0 Refill(s) Rosuvastati Yes See Memori [...] = 1 Me moria 20 MG Oral 01-10 tab, PO, l Tablet 22:21: Daily, # [place] 00 30 tab, 0 Refill(s) Linagliptin Yes 5 mg = 1 Me moria 5 MG Oral 01-10 tab, PO, l Tablet 22:13: Daily, # [place] [Tradjenta] 00 30 tab, 3 Refill(s) Acetaminoph Yes 2 tabs, Mem oria en 325 MG / 01-10 PO, Q6H, 0 l Hydrocodone 22:01: Refill(s) H ermann Bitartrate 00 10 MG Oral Tablet [[place] 10/325] Amlodipine Yes 10 mg, PO, M emoria 01-10 Daily, 0 l 22:01: Refill(s) [place] 00 coenzyme coenzyme No coenzyme A zalea Q10 100 mg Q10 100 mg 01-10 Q10 100 mg Orthope capsule capsule 00:00: capsule dic 00 Sports Medicin e coenzyme coenzyme No coenzyme A zalea Q10 100 mg Q10 100 mg 01-10 Q10 100 mg Orthope capsule capsule 00:00: capsule dic 00 Sports Medicin e aspirin RX aspirin RX 2012-06 No aspirin RX Arlin by other MD by other MD 0-30 by other Orthope 00:00: dic 00 Sports Medicin e aspirin RX aspirin RX [...] 20 Yes Rigoberto 20 mg, 1 Boy andrés mg oral 4-21 Skyler tab, PO, l tablet 13:44: Meiner BID, 60 Richard n 03 tab, Substituti on Allowed [place] Yes Rigoberto 1-2 tab, Memoria 10/325 oral [...] 4-20 Young 0.03 mL, l 22:13: Route: [place] SUB-Q, Drug form: SOLN, TID-Before Meals, Dosing Weight 91.818, kg, PRN Blood Glucose Results, Start date: 10/05/12 17:13:00, Duration: 30 day, Stop date: 11/04/12 17:12:00 glucagon 2012-0 No Estela 1 mg, Memori a 4-20 Young Route: IM, l 22:13: Drug form: [place] 00 PDR/INJ, PRN, Dosing Weight 91.818, kg, PRN Blood Glucose Results, Start date: 10/05/12 17:13:00, Duration: 30 day, Stop date: 11/04/12 17:12:00 Dextrose 2012-0 No Estela 12.5 gm, Mem oria 50% Syringe 4-20 Young 25 mL, l 22:13: Route: Luke IVP, Drug Form: INJ, Dosing Weight 91.818, kg, PRN, PRN Blood Glucose Results, Start date: 10/05/12 17:13:00, Duration: 30 day, Stop date: 11/04/12 17:12:00 insulin 2012-0 No Estela 5 unit, Memor ia aspart 4-20 Young 0.05 mL, l 16:30: Route: [place] 00 SUB-Q, Drug form: SOLN, TID-Before Meals, Dosing Weight 91.818, kg, Start date: 10/05/12 11:30:00, Duration: 30 day, Stop date: 11/04/12 7:30:00 Ativan 2012-0 No Rigoberto 1 mg, 1 Memoria 4-20 Skyler tab, l 15:38: Meiner Route: PO, Anitra nn 00 Drug form: TAB, Bedtime, Dosing Weight 91.818, kg, PRN Insomnia, Start date: 10/05/12 10:38:00, Duration: 30 day, Stop date: 11/04/12 10:37:00 Valium 2012- No Dorothy 5 mg, 1 Memori a 4-20 Dionisio tab, l 09:41: Route: PO, Drug form: TAB, ONCE, Dosing Weight 91.818, kg, PRN Anxiety, Start date: 10/05/12 4:41:00, Stop date: 11/04/12 4:40:00 dexamethaso 2012- No Dorothy 4 mg, 1 M emoria ne 4-20 Dionisio mL, Route: l 05:00: IVP, Drug form: INJ, Q6H, Dosing Weight 91.818, kg, Start date: 10/05/12 0:00:00, Duration: 30 day, Stop date: 11/03/12 18:00:00 heparin 2012-0 No [place] 5,000 Mem oria 4-20 n Deniz unit, 1 l 05:00: mL, Route: SUB-Q, Drug form: INJ, Q8H, Dosing Weight 91.818, kg, Start date: 10/05/12 0:00:00, Duration: 30 day, Stop date: 11/03/12 16:00:00 famotidine 2012- No Dorothy 20 mg, 1 M emoria 4-20 Dionisio tab, l 02:00: Route: PO, Drug form: TAB, BID, Dosing Weight 91.818, kg, Start date: 10/04/12 21:00:00, Duration: 30 day, Stop date: 11/03/12 9:00:00 Insulin 2012-0 No Estela 12 unit, Boy andrés regular 4-20 Young 0.12 mL, l 00:54: Route: Luke 00 SUB-Q, Drug form: SOLN, TID-Before Meals, Dosing Weight 91.818, kg, PRN Blood Glucose Results, Start date: 10/04/12 19:54:00, Duration: 30 day, Stop date: 11/03/12 19:53:00 glucagon 2013-0 No Petra 1 mg, Mem oria 4-20 [...] 30 day, Stop date: 11/03/12 19:53:00 dexamethaso No Dorothy 10 mg, 1 Memoria ne + Sodium 4-20 Dionisio mL, Route: l Chloride 00:14: IVP, Drug Herm robert 0.9% IV 50 00 form: INJ, mL ONCE, Dosing Weight 91.818, kg, Start date: 10/04/12 19:14:00, Stop date: 10/04/12 19:14:00 magnesium No Estela 2 gm, 50 Me moria [...] 2012- No Leah Yen 25 mg, M kristine thiazide 4-19 Thi Mabry Route: PO, l 14:00: Drug form: [place] 00 TAB, Daily, Dosing Weight 91.818, kg, Start date: 10/04/12 9:00:00, Duration: 30 day, Stop date: 11/02/12 9:00:00 Januvia 2012- No [place] 100 mg, 1 Memoria 4-19 [...] 1 - 2 tab, Memoria mg oral 19 n Deniz PO, Q6H, l tablet 13:00: PRN, 112 Luke 09 tab, Pain, Substituti on Allowed, TAB cyclobenzap Yes [place] 10 mg, 1 Memoria rine 10 mg - n Deniz tab, PO, l oral tablet 13:00: TID, PRN, H ermann 04 42 tab, Spasm, Substituti on Allowed, TAB olmesartan Yes [facility] 40 mg, 1 Memoria 40 mg oral 10-04 n Deniz tab, PO, l tablet 12:59: Daily, 30 Richard n 34 tab, Substituti on Allowed, TAB Dilaudid No [facility] 0.3 mg, Memoria -19 n Deniz 0.15 mL, l 12:57: Route: [...] No Estela 10 mg, 2 Me moria 10-04 Young mL, Route: l 08:05: IVP, Drug [...] 30 day, Stop date: 11/02/12 18:00:00 carvedilol 2012- No Estela 12.5 mg, 1 Memoria 4-19 Young tab, l 02:00: Route: PO, Drug form: TAB, Q12H, Dosing Weight 91.818, kg, Start date: 10/03/12 21:00:00, Stop date: 11/02/12 9:00:00 Saline 2012-0 No [facility] 5 ml, Boy andrés Flush 0.9% - donna Guaman Route: l [...] No Petra 12.5 gm, Memoria 50% Syringe 18 Carmen 25 mL, l 23:18: Grazyna Route: Luke 00 Law IVP, Drug Form: INJ, Dosing Weight 91.818, kg, PRN, PRN Abnormal Lab Result, Start date: 10/03/12 18:18:00, Duration: 30 day, Stop date: 11/02/12 18:17:00 insulin 2012-0 No Petra 5 unit, Me moria regular 100 -18 Carmen 0.05 mL, l units/mL 23:18: Grazyna Route: Richard Law SUB-Q, recombinant Drug form: SOLN, PRN, [...] Eng mL, Route: l 20:54: IVP, Drug [place] 00 form: INJ, ONCE, Dosing Weight 91.818, [...] 0.5mg/mL 4-18 n Deniz mL, Route: l [employer] 17:00: IV, [employer] Luke (15mg/30 00 Dose: 0.3 mL) 15 mg mg, [employer] Lockout: 15 minutes, 4 Hour Limit (In MG): 4.8, Drug Form: INJ, Continuous , Start date: 10/03/12 12:00:00, Stop date: 11/02/12 11:59:00 Saline No [facility] 5 ml, Boy andrés Flush 0.9% 4-18 donna Guaman Route: l 16:42: IVP, Drug Luke 00 Form: INJ, Dosing Weight 91.818, kg, PRN, PRN Line Flush, Start date: 10/03/12 11:42:00, Duration: 30 day, Stop date: 11/02/12 11:41:00 ondansetron No [facility] 4 mg, 2 Memoria 4-18 n Deniz mL, Route: l 16:42: IVP, Drug [place] 00 form: INJ, Q8H, Dosing Weight 91.818, [...] cefazolin No Keron 2 gm, 100 Memoria 10-03 Gabbie mL, Route: l 10:00: William IVPB, Drug Herm robert 00 form: INJ, PRE OP, Start date: 10/03/12 5:00:00, Duration: 1 day, Stop date: 10/04/12 4:59:00 Vicodin HP Yes PO, PRN, Mem oria 10 mg-300 4-16 Substituti l mg oral 21:32: on [place] tablet 18 Allowed, Maintenanc e Dulcolax Yes 1 supp, Memori a Laxative 4-16 NH, Daily, l 21:32: PRN, 5 Luke 02 supp, constipati on, Substituti on Allowed, SUPP clonidine Yes [facility] PO, QID, Memoria 0.1 mg oral 4-16 n Deniz prn l tablet 21:31: bp>160, Luke 30 Substituti on [id number] Benicar HCT Yes 1 tab, PO, Memoria [...] 10 tab, Substituti on Allowed, TAB Lantus 2012- Yes 22 unit, Memoria 4-16 SUB-Q, l [...] 00 by other Sports MD Aquino e BD Shaina 2nd BD Shaina 2nd No BD Shaina [facility] Gen Pen Gen Pen 2nd Gen Orthop e Needle 32 Needle 32 Pen Needle dic gauge x gauge x 32 gauge x Spo rts " USE " USE " USE Medicin DIRECTED DIRECTED e 4 TIMES 4 TIMES DIRECTED 4 DAILY DAILY TIMES DAILY valsartan valsartan No valsartan [place] 320 mg 320 mg 320 mg Family tablet TAKE tablet TAKE tablet Practic 1 TABLET BY 1 TABLET BY TAKE 1 e MOUTH EVERY MOUTH EVERY TABLET BY DAY DAY MOUTH EVERY DAY Brilinta 90 Brilinta 90 No Brilinta Arlin mg tablet mg tablet 90 mg Orth ope tablet dic Sports Medicin e Vitamin D3 Vitamin D3 No Vitamin D3 [facility] carvedilol carvedilol No carvedilol [facility]lin 12.5 mg 12.5 mg 12.5 mg Orthop e tablet TAKE tablet TAKE tablet dic 1 TABLET BY 1 TABLET BY TAKE 1 Sports MOUTH TWICE MOUTH TWICE TABLET BY Medicin A DAY A DAY MOUTH e TWICE A DAY Accu-Chek Accu-Chek No Accu-Chek [facility] Fior Meter Fior Meter Fior Family Meter Practic e Carvedilol Carvedilol Yes UT 25 MG Oral 25 MG Oral Phy sici Tablet Tablet ans cholecalcif cholecalcif No 1000U cholecalci Arlin loren loren ferol Orthope (vitamin (vitamin (vitamin dic D3) 25 mcg D3) 25 mcg D3) 25 mcg Sports (1,000 (1,000 (1,000 Medicin unit) unit) unit) e capsule capsule capsule 1000 units 1000 units 1000 units by oral by oral by oral route. route. route. Accu-Chek Accu-Chek No Accu-Chek [facility] Fior Plus Fior Plus Fior Plus Family test strips test strips test P ractic TEST 3 TEST 3 strips e TIMES A DAY TIMES A DAY TEST 3 DIRECTED DIRECTED TIMES A DAY DIRECTED Accu-Chek Accu-Chek No Accu-Chek [facility] Fastclix Fastclix Fastclix Fam gail Lancet Drum Lancet Drum Lancet Practic USE USE Drum USE e DIRECTED 3 DIRECTED 3 TIMES DAILY TIMES DAILY DIRECTED 3 TIMES DAILY cinacalcet cinacalcet No cinacalcet Arlin 30 mg 30 mg 30 mg Orthope tablet TAKE tablet TAKE tablet dic 1 TABLET BY 1 TABLET BY TAKE 1 Sports MOUTH TWICE MOUTH TWICE TABLET BY Medicin A DAY A DAY MOUTH e TWICE A DAY Accu-Chek [facility] FastClix FastClix FastClix Fam gail Lancing Lancing Lancing Practi c Device Device Device e ciprofloxac ciprofloxac No ciprofloxa Arlin in 500 mg in 500 mg ziyad 500 mg Orthope tablet TAKE tablet TAKE tablet dic 1 TABLET BY 1 TABLET BY TAKE 1 Sports MOUTH TWICE MOUTH TWICE TABLET BY Medicin A DAY A DAY MOUTH e TWICE A DAY acetaminoph acetaminoph No acetaminop [facility] en 300 en 300 hen 300 Family mg-codeine mg-codeine mg-codeine Practic 60 mg 60 mg 60 mg e tablet TAKE tablet TAKE tablet 1 TABLET BY 1 TABLET BY TAKE 1 MOUTH EVERY MOUTH EVERY TABLET BY 6 HOURS 6 HOURS MOUTH NEEDED NEEDED EVERY 6 HOURS NEEDED Cinacalcet Cinacalcet Yes UT HCl - 30 MG HCl - 30 MG P hysici Oral Tablet Oral Tablet a ns clonidine clonidine No .1mg BID clonidine Arlin HCl 0.1 mg HCl 0.1 mg HCl 0.1 mg Orthope tablet 0.1 tablet 0.1 tablet 0.1 dic mg twice a mg twice a mg twice a Sports day by oral day by oral day by Medicin route. route. oral e route. acyclovir acyclovir No acyclovir [place] 800 mg 800 mg 800 mg Family tablet tablet tablet Practic e clopidogrel clopidogrel No clopidogre [facility] 75 mg 75 mg l 75 mg Orth[facility] tablet TAKE tablet TAKE tablet dic 1 BY MOUTH 1 BY MOUTH TAKE 1 BY Sports ONCE A DAY ONCE A DAY MOUTH ONCE Medicin A DAY e alprazolam alprazolam No alprazolam [place] 0.25 mg 0.25 mg 0.25 mg Family tablet TAKE tablet TAKE tablet Practic 1 TO 2 1 TO 2 TAKE 1 TO e TABLETS BY TABLETS BY 2 TABLETS MOUTH PRIOR MOUTH PRIOR BY MOUTH TO CT TO CT PRIOR TO SCAN/PET SCAN/PET CT SCAN SCAN SCAN/PET SCAN dicyclomine dicyclomine No dicyclomin [facility] 20 mg 20 mg e 20 mg Orth[facility] tablet TAKE tablet TAKE tablet dic 1 TABLET BY 1 TABLET BY TAKE 1 Sports MOUTH EVERY MOUTH EVERY TABLET BY Medicin 6 HOURS 6 HOURS MOUTH e NEEDED FOR NEEDED FOR EVERY 6 ABDOMINAL ABDOMINAL HOURS CRAMPING CRAMPING NEEDED FOR ABDOMINAL CRAMPING aspirin 81 aspirin 81 No 1 Q1D aspirin 81 [place] mg mg mg Family tablet,noam tablet,noam tablet,del Practic yed release yed release ayed e Take 1 Take 1 release tablet tablet Take 1 every day every day tablet by oral by oral every day route as route as by oral directed. directed. route as directed. escitalopra escitalopra No escitalopr Arlin m 5 mg m 5 mg am 5 mg [facility] tablet TAKE tablet TAKE tablet dic 1 TABLET BY 1 TABLET BY TAKE 1 Sports MOUTH EVERY MOUTH EVERY TABLET BY Medicin DAY WITH DAY WITH MOUTH e BREAKFAST BREAKFAST EVERY DAY WITH BREAKFAST BD Shaina 2nd BD Shaina 2nd No BD Shaina [place] Gen Pen Gen Pen 2nd Gen Family Needle 32 Needle 32 Pen Needle Practic gauge x gauge x 32 gauge x e " USE " USE " USE DIRECTED DIRECTED 4 TIMES 4 TIMES DIRECTED 4 DAILY DAILY TIMES DAILY Estring 2 Estring 2 No Estring 2 Arlin mg (7.5 mg (7.5 mg (7.5 Orthop e mcg/24 mcg/24 mcg/24 dic hour) hour) hour) Sports vaginal vaginal vaginal Medici n ring ring ring e budesonide budesonide No budesonide [facility] 1 mg/2 mL 1 mg/2 mL [...] DAILY TWICE DAILY ONCE TO TWICE DAILY ezetimibe ezetimibe No ezetimibe [facility] 10 mg 10 mg 10 mg [facility] tablet TAKE tablet TAKE tablet dic 1 TABLET BY 1 TABLET BY TAKE 1 Sports MOUTH EVERY MOUTH EVERY TABLET BY Medicin DAY DAY MOUTH e EVERY DAY carvedilol carvedilol No carvedilol [place] 12.5 mg 12.5 mg 12.5 mg Family tablet TAKE tablet TAKE tablet Practic 1 TABLET BY 1 TABLET BY TAKE 1 e MOUTH TWICE MOUTH TWICE TABLET BY A DAY A DAY MOUTH TWICE A DAY fluconazole fluconazole No fluconazol [facility] 150 mg 150 mg e 150 mg [facility] tablet 1 tablet 1 tablet 1 dic TABLET TABLET TABLET Sports ORALLY NOW, ORALLY NOW, ORALLY Medicin THEN AGAIN THEN AGAIN NOW, THEN e IN 72 HOURS IN 72 HOURS AGAIN IN 4 DAY(S) 4 DAY(S) 72 HOURS 4 DAY(S) Lisinopril Lisinopril Yes UT 20 MG Oral 20 MG Oral Phy sici Tablet Tablet ans cefixime cefixime No cefixime Perry benny 400 mg 400 mg 400 mg Family capsule capsule capsule Practi c EMPTY 1 EMPTY 1 EMPTY 1 e CAPSULE CAPSULE CAPSULE INTO INTO INTO IRRIGATION IRRIGATION IRRIGATION SYSTEM, ADD SYSTEM, ADD SYSTEM, DISTILLED DISTILLED ADD WATER, WATER, DISTILLED IRRIGATE - IRRIGATE - WATER, TWICE DAILY TWICE DAILY IRRIGATE - TWICE DAILY folic acid folic acid No folic acid Arlin 1 mg tablet 1 mg tablet 1 mg O rthope TAKE 1 TAKE 1 tablet dic TABLET BY TABLET BY TAKE 1 Spo rts MOUTH EVERY MOUTH EVERY TABLET BY Medicin DAY DAY MOUTH e EVERY DAY cinacalcet cinacalcet No cinacalcet [place] 30 mg 30 mg 30 mg Family tablet TAKE tablet TAKE tablet Practic 1 TABLET BY 1 TABLET BY TAKE 1 e MOUTH TWICE MOUTH TWICE TABLET BY A DAY A DAY MOUTH TWICE A DAY furosemide furosemide No furosemide [facility] 20 mg 20 mg 20 mg [facility] tablet TAKE tablet TAKE tablet dic 1 TABLET BY 1 TABLET BY TAKE 1 Sports MOUTH EVERY MOUTH EVERY TABLET BY Medicin DAY DAY MOUTH e EVERY DAY clindamycin clindamycin No clindamyci [facility] 2 % vaginal 2 % vaginal n 2 % Family cream cream vaginal Practic cream e hydralazine hydralazine No hydralazin [place] 25 mg 25 mg e 25 mg [facility] tablet TAKE tablet TAKE tablet dic 1 TABLET BY 1 TABLET BY TAKE 1 Sports MOUTH THREE MOUTH THREE TABLET BY Medicin TIMES A DAY TIMES A DAY MOUTH e THREE TIMES A DAY clonidine clonidine No clonidine [place] HCl 0.1 mg HCl 0.1 mg HCl 0.1 mg Family tablet TAKE tablet TAKE tablet Practic 1 TABLET BY 1 TABLET BY TAKE 1 e MOUTH 3 MOUTH 3 TABLET BY TIMES A DAY TIMES A DAY MOUTH 3 TIMES A DAY Pravastatin Pravastatin Yes U T Sodium 20 Sodium 20 Physi ci MG Oral MG Oral ans Tablet Tablet hydrocodone hydrocodone No hydrocodon [facility]lin 7.5 7.5 e 7.5 Orthope mg-acetamin mg-acetamin mg-acetami dic ophen 325 ophen 325 nophen 325 Sports mg tablet mg tablet mg tablet Medicin TAKE 1 TAKE 1 TAKE 1 e TABLET BY TABLET BY TABLET BY MOUTH EVERY MOUTH EVERY MOUTH 6 TO 8 6 TO 8 EVERY 6 TO HOURS HOURS 8 HOURS NEEDED FOR NEEDED FOR NEEDED FOR 28 DAYS 28 DAYS 28 DAYS CoQ-10 200 CoQ-10 200 No CoQ-10 200 [place] mg mg mg Family Practic e Jardiance Jardiance No Jardiance [facility] 25 mg 25 mg 25 mg [facility] tablet tablet tablet dic Sports Medicin e Estring 2 Estring 2 No Estring 2 [place] mg (7.5 mg (7.5 mg (7.5 Family mcg/24 mcg/24 mcg/24 Practic hour) hour) hour) e vaginal vaginal vaginal ring UISE ring UISE ring UISE DIRECTED DIRECTED DIRECTED Hasmukh [facility]alan [facility] XR 5 XR 5 XR 5 [facility] mg-1,000 mg mg-1,000 mg mg-1,000 dic tablet, tablet, mg tablet, Spo rts extended extended extended Med icin release release release e TAKE 1 TAKE 1 TAKE 1 TABLET BY TABLET BY TABLET BY MOUTH EVERY MOUTH EVERY MOUTH DAY IN THE DAY IN THE EVERY DAY MORNING MORNING IN THE MORNING ezetimibe ezetimibe No ezetimibe [facility] 10 mg 10 mg 10 mg Family tablet TAKE tablet TAKE tablet Practic 1 TABLET BY 1 TABLET BY TAKE 1 e MOUTH EVERY MOUTH EVERY TABLET BY DAY DAY MOUTH EVERY DAY lisinopril lisinopril No lisinopril [place] 20 mg 20 mg 20 mg [facility] tablet tablet tablet dic Sports Medicin e fluconazole fluconazole No fluconazol [facility] 150 mg 150 mg e 150 mg Family tablet 1 tablet 1 tablet 1 Pra ctic TABLET TABLET TABLET e ORALLY NOW, ORALLY NOW, ORALLY THEN AGAIN THEN AGAIN NOW, THEN IN 72 HOURS IN 72 HOURS AGAIN IN 4 DAY(S) 4 DAY(S) 72 HOURS 4 DAY(S) Livalo 4 mg Livalo 4 mg No Livalo 4 [facility]lin tablet TAKE tablet TAKE mg tablet [facility] 1 TABLET BY 1 TABLET BY TAKE 1 dic MOUTH MOUTH TABLET BY Sports EVERYDAY AT EVERYDAY AT MOUTH Medicin BEDTIME BEDTIME EVERYDAY e AT BEDTIME furosemide furosemide No furosemide [facility] 20 mg 20 mg 20 mg Family tablet TAKE tablet TAKE tablet Practic 1 TABLET BY 1 TABLET BY TAKE 1 e MOUTH EVERY MOUTH EVERY TABLET BY DAY DAY MOUTH EVERY DAY metformin metformin No metformin Arlin ER 500 mg ER 500 mg ER 500 mg [facility] 24 hr 24 hr 24 hr dic tablet,exte tablet,exte tablet,ext Sports nded nded ended Medicin release release release e gabapentin gabapentin No gabapentin [facility] 300 mg 300 mg 300 mg Family capsule capsule capsule Practi c TAKE 1 TAKE 1 TAKE 1 e CAPSULE BY CAPSULE BY CAPSULE BY MOUTH THREE MOUTH THREE MOUTH TIMES A DAY TIMES A DAY THREE TIMES A DAY Myrbetriq Myrbetriq No Myrbetriq [facility] 50 mg 50 mg 50 mg [facility] tablet,exte tablet,exte tablet,ext dic nded nded ended Sports release release release Medici n e Aspirin 81 Aspirin 81 Yes UT MG TABS MG TABS Physici ans hydralazine hydralazine No hydrarizin [facility] 25 mg 25 mg e 25 mg Family tablet TAKE tablet TAKE tablet Practic 1 TABLET BY 1 TABLET BY TAKE 1 e MOUTH THREE MOUTH THREE TABLET BY TIMES A DAY TIMES A DAY MOUTH THREE TIMES A DAY Novolog Novolog No Novolog [facility]lin FlexPen [...] USING >200 USING >200 USING CF 1:30 CF 1:30 CF 1:30 TOTAL DAILY TOTAL DAILY TOTAL DOSE IS 50 DOSE IS 50 DAILY DOSE UNITS UNITS IS 50 UNITS hydrocodone hydrocodone No hydrocodon [facility] 5 5 e 5 Family mg-acetamin mg-acetamin mg-acetami Practic ophen 325 ophen 325 nophen 325 e mg tablet mg tablet mg tablet TAKE 1 TAKE 1 TAKE 1 TABLET BY TABLET BY TABLET BY MOUTH EVERY MOUTH EVERY MOUTH 6 HOURS 6 HOURS EVERY 6 NEEDED NEEDED HOURS NEEDED omeprazole omeprazole No omeprazole [facility] 40 mg 40 mg 40 mg [facility] capsule,del capsule,del capsule,de dic ayed ayed layed Sports release release release Medici n TAKE 1 TAKE 1 TAKE 1 e CAPSULE BY CAPSULE BY CAPSULE BY MOUTH EVERY MOUTH EVERY MOUTH DAY DAY EVERY DAY [facility] No 1 Q1D [facility] XR 5 XR 5 XR 5 [...] 90 morning days. days. for 90 days. ondansetron ondansetron No ondansetro [facility] HCl 4 mg HCl 4 mg n HCl 4 mg O rthope tablet TAKE tablet TAKE tablet dic 1 TABLET BY 1 TABLET BY TAKE 1 Sports MOUTH EVERY MOUTH EVERY TABLET BY Medicin 6 HOURS 6 HOURS MOUTH e NEEDED FOR NEEDED FOR EVERY 6 NAUSEA NAUSEA HOURS NEEDED FOR NAUSEA Brilinta 90 Brilinta 90 Yes U T MG Oral MG Oral Physici Tablet Tablet ans pravastatin pravastatin No pravastati [place] 20 mg 20 mg n 20 mg [facility] tablet tablet tablet dic Sports Medicin e lisinopril lisinopril No lisinopril [place] 20 mg 20 mg 20 mg Family tablet TAKE tablet TAKE tablet Practic 2 TABLETS 2 TABLETS TAKE 2 e BY MOUTH BY MOUTH TABLETS BY EVERY DAY EVERY DAY MOUTH EVERY DAY pregabalin pregabalin No pregabalin [facility] 75 mg 75 mg 75 mg [facility] capsule capsule capsule dic TAKE 1 TAKE 1 TAKE 1 Sports CAPSULES CAPSULES CAPSULES Med icin EVERY EVERY EVERY e MORNING & MORNING & MORNING & TAKE 2 TAKE 2 TAKE 2 CAPSULES BY CAPSULES BY CAPSULES MOUTH AT MOUTH AT BY MOUTH BEDTIME BEDTIME AT BEDTIME Livalo 4 mg Livalo 4 mg No Livalo 4 Village tablet TAKE tablet TAKE mg tablet Family 1 TABLET BY 1 TABLET BY TAKE 1 Practic MOUTH MOUTH TABLET BY e EVERYDAY AT EVERYDAY AT MOUTH BEDTIME BEDTIME EVERYDAY AT BEDTIME Accu-Chek Accu-Chek No Accu-Chek [facility] Fior Plus Fior Plus Fior Plus Orthope test strips test strips test d ic TEST 3 TEST 3 strips Sports TIMES A DAY TIMES A DAY TEST 3 Medicin DIRECTED DIRECTED TIMES A e DAY DIRECTED Miralax Miralax No Miralax [facility] Pract[facility] e Saline Saline No Saline [facility] Nasal 0.65 Nasal 0.65 Nasal 0.65 Orthope % spray % spray % spray dic aerosol aerosol aerosol Sports Medicin e mupirocin 2 mupirocin 2 No mupirocin [place] % topical % topical 2 % Famil y ointment ointment topical Prac tic ointment e Soliqua Soliqua No Soliqua Arlin 100/33 100 100/33 100 100/33 100 Orthope unit-33 unit-33 unit-33 dic mcg/mL mcg/mL mcg/mL Sports subcutaneou subcutaneou subcutaneo Medicin s insulin s insulin us insulin e pen GIVE 36 pen GIVE 36 pen GIVE UNITS IN UNITS IN 36 UNITS THE MORNING THE MORNING IN THE AND AND MORNING INCREASE INCREASE AND DIRECTED: DIRECTED: INCREASE TOTAL DAILY TOTAL DAILY DOSE IS 60 DOSE IS 60 DIRECTED: UNITS UNITS TOTAL DAILY DOSE IS 60 UNITS nifedipine nifedipine No nifedipine [place] ER 30 mg ER 30 mg ER 30 mg Fam gail tablet,exte tablet,exte tablet,ext Practic nded nded ended e release release release TAKE 1 TAKE 1 TAKE 1 TABLET BY TABLET BY TABLET BY MOUTH EVERY MOUTH EVERY MOUTH DAY DAY EVERY DAY trimethopri trimethopri No trimethopr Arlin m 100 mg m 100 mg im 100 mg Or thope tablet tablet tablet dic Sports Medicin e Novolog Novolog No Novolog Villag e Flexpen [...] TDD CF 1:30 50 50 TDD 50 Trulicity Trulicity No Trulicity [facility]lin 4.5 mg/0.5 4.5 mg/0.5 4.5 mg/0.5 Orthope mL mL mL dic subcutaneou subcutaneou subcutaneo Sports s pen s pen us pen Medicin injector injector injector e Gabapentin Gabapentin Yes UT 300 MG Oral 300 MG Oral P hysici Capsule Capsule ans nystatin-tr nystatin-tr No nystatin-t [place] iamcinolone iamcinolone riainolo Family 100,000 100,000 ne 100,000 Pra ctic unit/g-0.1 unit/g-0.1 unit/g-0.1 e % topical % topical % topical cream APPLY cream APPLY cream 1 1 APPLY 1 APPLICATION APPLICATION APPLICATIO TO AFFECTED TO AFFECTED N TO AREA AREA AFFECTED EXTERNALLY EXTERNALLY AREA TWICE A DAY TWICE A DAY EXTERNALLY FOR 30 DAYS FOR 30 DAYS TWICE A DAY FOR 30 DAYS valsartan valsartan No valsartan [place] 320 mg 320 mg 320 mg [facility] tablet TAKE tablet TAKE tablet dic 1 TABLET BY 1 TABLET BY TAKE 1 Sports MOUTH EVERY MOUTH EVERY TABLET BY Medicin DAY DAY MOUTH e EVERY DAY omeprazole omeprazole No omeprazole [facility] 20 mg 20 mg 20 mg Family capsule,del capsule,del capsule,de Practic ayed ayed layed e release release release acetaminoph acetaminoph No acetaminop Arlin en 300 en 300 hen 300 Orthope mg-codeine mg-codeine mg-codeine dic 60 mg 60 mg 60 mg Sports tablet TAKE tablet TAKE tablet Medicin 1 TABLET BY 1 TABLET BY TAKE 1 e MOUTH EVERY MOUTH EVERY TABLET BY 6 HOURS 6 HOURS MOUTH NEEDED NEEDED EVERY 6 HOURS NEEDED Premarin Premarin No Premarin Perry benny 0.625 [...] DAYS 30 DAYS WEEK FOR 30 DAYS acyclovir acyclovir No acyclovir [facility] 800 mg 800 mg 800 mg [facility] tablet TAKE tablet TAKE tablet dic 1 TABLET BY 1 TABLET BY TAKE 1 Sports MOUTH TWICE MOUTH TWICE TABLET BY Medicin A DAY A DAY MOUTH e TWICE A DAY Furosemide Furosemide Yes UT 20 MG Oral 20 MG Oral Phy sici Tablet Tablet ans Soliqua Soliqua No Soliqua [place] e 100/33 [...] TDD 60 TDD 60 directed: TDD 60 Accu-Chek Accu-Chek No Accu-Chek Arlin Fior Meter Fior Meter Fior Orthope Meter dic Sports Medicin e valsartan valsartan No valsartan [place] 320 mg 320 mg 320 mg Family tablet TAKE tablet TAKE tablet Practic 1 TABLET BY 1 TABLET BY TAKE 1 e MOUTH EVERY MOUTH EVERY TABLET BY DAY DAY MOUTH EVERY DAY Accu-Chek Accu-Chek No Accu-Chek [facility] Fastclix Fastclix Fastclix Ort hope Lancet Drum Lancet Drum Lancet dic Drum Sports Medicin e Vitamin D3 Vitamin D3 No Vitamin D3 [facility] Family Practic e Accu-Chek Accu-Chek No Accu-Chek [facility] FastClix FastClix FastClix Ort hope Lancing Lancing Lancing dic Device Device Device Sports Medicin e Accu-Chek Accu-Chek No Accu-Chek [facility] Fior Meter Fior Meter Fior Family Meter Practic e alprazolam alprazolam No alprazolam [facility] 0.25 mg 0.25 mg 0.25 mg Orthop e tablet TAKE tablet TAKE tablet dic 1 TO 2 1 TO 2 TAKE 1 TO Sports TABLETS BY TABLETS BY 2 TABLETS Medicin MOUTH PRIOR MOUTH PRIOR BY MOUTH e TO CT TO CT PRIOR TO SCAN/PET SCAN/PET CT SCAN SCAN SCAN/PET SCAN Accu-Chek Accu-Chek No Accu-Chek [facility] Fior Plus Foir Plus Fior Plus Family test strips test strips test P ractic TEST 3 TEST 3 strips e TIMES A DAY TIMES A DAY TEST 3 DIRECTED DIRECTED TIMES A DAY DIRECTED alprazolam alprazolam No alprazolam [place] 0.25 mg 0.25 mg 0.25 mg Orthop e tablet TAKE tablet TAKE tablet dic 1 TO 2 1 TO 2 TAKE 1 TO Sports TABLETS BY TABLETS BY 2 TABLETS Medicin MOUTH PRIOR MOUTH PRIOR BY MOUTH e TO CT TO CT PRIOR TO SCAN/PET SCAN/PET CT SCAN SCAN SCAN/PET SCAN Accu-Chek Accu-Chek No Accu-Chek [facility] Fastclix Fastclix Fastclix Fam gail Lancet Drum Lancet Drum Lancet Practic USE USE Drum USE e DIRECTED 3 DIRECTED 3 TIMES DAILY TIMES DAILY DIRECTED 3 TIMES DAILY Accu-Chek Accu-Chek No Accu-Chek [facility] FastClix FastClix FastClix Fam gail Lancing Lancing Lancing Practi c Device Device Device e amoxicillin amoxicillin No amoxicilli [facility]lin [phone] [phone] [phone] Orthope mg-potassiu mg-potassiu mg-potassi dic m m Sports clavulanate clavulanate clavulanat Medicin 125 mg 125 mg e 125 mg e tablet TAKE tablet TAKE tablet 1 TABLET BY 1 TABLET BY TAKE 1 MOUTH TWO MOUTH TWO TABLET BY TIMES A DAY TIMES A DAY MOUTH TWO WITH FOOD WITH FOOD TIMES A DAY WITH FOOD Vitamin D3 Vitamin D3 Yes UT TABS TABS Physici ans Appearex Appearex No Appearex Aza maritza [facility] dic Sports Medicin e acetaminoph acetaminoph No acetaminop [place] en 300 en 300 hen 300 Family mg-codeine mg-codeine mg-codeine Practic 60 mg 60 mg 60 mg e tablet TAKE tablet TAKE tablet 1 TABLET BY 1 TABLET BY TAKE 1 MOUTH EVERY MOUTH EVERY TABLET BY 6 HOURS 6 HOURS MOUTH NEEDED NEEDED EVERY 6 HOURS NEEDED aspirin 81 aspirin 81 No aspirin 81 Arlin mg mg mg Orth[facility] tablet,noam tablet,noam tablet,del dic yed release yed release ayed S ports release Medicin e acyclovir acyclovir No acyclovir [place] 800 mg 800 mg 800 mg Family tablet tablet tablet Practic e atorvastati atorvastati No atorvastat Arlin n 40 mg n 40 mg in 40 mg Ortho pe tablet TAKE tablet TAKE tablet dic 1 TABLET BY 1 TABLET BY TAKE 1 Sports MOUTH AT MOUTH AT TABLET BY Me dicin BEDTIME BEDTIME MOUTH AT e BEDTIME alprazolam alprazolam No alprazolam [place] 0.25 mg 0.25 mg 0.25 mg Family tablet TAKE tablet TAKE tablet Practic 1 TO 2 1 TO 2 TAKE 1 TO e TABLETS BY TABLETS BY 2 TABLETS MOUTH PRIOR MOUTH PRIOR BY MOUTH TO CT TO CT PRIOR TO SCAN/PET SCAN/PET CT SCAN SCAN SCAN/PET SCAN BD Shaina 2nd BD Shaina 2nd No BD Shaina Arlin Gen Pen Gen Pen 2nd Gen Orthop e Needle 32 Needle 32 Pen Needle dic gauge x gauge x 32 gauge x Spo rts " USE " USE " USE Medicin DIRECTED DIRECTED e 4 TIMES 4 TIMES DIRECTED 4 DAILY DAILY TIMES DAILY aspirin 81 aspirin 81 No 1 Q1D aspirin 81 [place] mg mg mg Family tablet,noam tablet,noam tablet,del Practic yed release yed release ayed e Take 1 Take 1 release tablet tablet Take 1 every day every day tablet by oral by oral every day route as route as by oral directed. directed. route as directed. MiraLax MiraLax Yes UT POWD POWD Physici ans Brilinta 90 Brilinta 90 No Brilinta Arlin mg tablet mg tablet 90 mg Orth ope tablet dic Sports Medicin e BD BD No BD [place] Ultra-Fine Ultra-Fine Ultra-Fine Family Shaina Pen Shaina Pen Shaina Pen Pra ctic Needle 32 Needle 32 Needle 32 e gauge x gauge x gauge x " USE " USE " USE DIRECTED DIRECTED 4 TIMES 4 TIMES DIRECTED 4 DAILY DAILY TIMES DAILY carvedilol carvedilol No carvedilol [facility]lin 12.5 mg 12.5 mg 12.5 mg Orthop e tablet TAKE tablet TAKE tablet dic 1 TABLET BY 1 TABLET BY TAKE 1 Sports MOUTH TWICE MOUTH TWICE TABLET BY Medicin A DAY A DAY MOUTH e TWICE A DAY budesonide budesonide No budesonide [facility] 1 mg/2 mL 1 mg/2 mL [...] DAILY TWICE DAILY ONCE TO TWICE DAILY amlodipine amlodipine No amlodipine [facility] 10 mg 10 mg 10 mg [facility] tablet RX tablet RX tablet RX dic by other MD by other MD by other Sports MD Medicin e carvedilol carvedilol No carvedilol [place] 12.5 mg 12.5 mg 12.5 mg Family tablet TAKE tablet TAKE tablet Practic 1 TABLET BY 1 TABLET BY TAKE 1 e MOUTH TWICE MOUTH TWICE TABLET BY A DAY A DAY MOUTH TWICE A DAY cholecalcif cholecalcif No 1000U cholecalci [facility]lin loren loren ferol Orthope (vitamin (vitamin (vitamin dic D3) 25 mcg D3) 25 mcg D3) 25 mcg Sports (1,000 (1,000 (1,000 Medicin unit) unit) unit) e capsule capsule capsule 1000 units 1000 units 1000 units by oral by oral by oral route. route. route. cefixime cefixime No cefixime Perry benny 400 mg 400 mg 400 mg Family capsule capsule capsule Practi c EMPTY 1 EMPTY 1 EMPTY 1 e CAPSULE CAPSULE CAPSULE INTO INTO INTO IRRIGATION IRRIGATION IRRIGATION SYSTEM, ADD SYSTEM, ADD SYSTEM, DISTILLED DISTILLED ADD WATER, WATER, DISTILLED IRRIGATE - IRRIGATE - WATER, TWICE DAILY TWICE DAILY IRRIGATE - TWICE DAILY cinacalcet cinacalcet No cinacalcet [facility] 30 mg 30 mg 30 mg [facility] tablet TAKE tablet TAKE tablet dic 1 TABLET BY 1 TABLET BY TAKE 1 Sports MOUTH TWICE MOUTH TWICE TABLET BY Medicin A DAY A DAY MOUTH e TWICE A DAY cinacalcet cinacalcet No cinacalcet [place] 30 mg 30 mg 30 mg Family tablet TAKE tablet TAKE tablet Practic 1 TABLET BY 1 TABLET BY TAKE 1 e MOUTH TWICE MOUTH TWICE TABLET BY A DAY A DAY MOUTH TWICE A DAY ciprofloxac ciprofloxac No ciprofloxa Arlin in 500 mg in 500 mg ziyad 500 mg [facility] tablet TAKE tablet TAKE tablet [...] Village mg mg mg Family Practic e clonidine clonidine No .1mg BID clonidine [facility]lin HCl 0.1 mg HCl 0.1 mg HCl 0.1 mg Orth[facility] tablet 0.1 tablet 0.1 tablet 0.1 dic mg twice a mg twice a mg twice a Sports day by oral day by oral day by Medicin route. route. oral e route. Estring 2 Estring 2 No Estring 2 Village mg (7.5 mg (7.5 mg (7.5 Family mcg/24 mcg/24 mcg/24 Practic hour) hour) hour) e vaginal vaginal vaginal ring UISE ring UISE ring UISE DIRECTED DIRECTED DIRECTED clopidogrel clopidogrel No clopidogre [facility] 75 mg 75 mg l 75 mg [facility] tablet TAKE tablet TAKE tablet dic 1 BY MOUTH 1 BY MOUTH TAKE 1 BY Sports ONCE A DAY ONCE A DAY MOUTH ONCE Medicin A DAY e ezetimibe ezetimibe No ezetimibe [facility] 10 mg 10 mg 10 mg Family tablet TAKE tablet TAKE tablet Practic 1 TABLET BY 1 TABLET BY TAKE 1 e MOUTH EVERY MOUTH EVERY TABLET BY DAY DAY MOUTH EVERY DAY dicyclomine dicyclomine No dicyclomin [facility] 20 mg 20 mg e 20 mg [facility] tablet TAKE tablet TAKE tablet dic 1 TABLET BY 1 TABLET BY TAKE 1 Sports MOUTH EVERY MOUTH EVERY TABLET BY Medicin 6 HOURS 6 HOURS MOUTH e NEEDED FOR NEEDED FOR EVERY 6 ABDOMINAL ABDOMINAL HOURS CRAMPING CRAMPING NEEDED FOR ABDOMINAL CRAMPING fluconazole fluconazole No fluconazol [facility] 150 mg 150 mg e 150 mg Family tablet 1 tablet 1 tablet 1 Pra ctic TABLET TABLET TABLET e ORALLY NOW, ORALLY NOW, ORALLY THEN AGAIN THEN AGAIN NOW, THEN IN 72 HOURS IN 72 HOURS AGAIN IN 4 DAY(S) 4 DAY(S) 72 HOURS 4 DAY(S) amoxicillin amoxicillin No amoxicilli [facility] 500 mg 500 mg n 500 mg [facility] capsule capsule capsule dic TAKE 4 TAKE 4 TAKE 4 Sports CAPSULES BY CAPSULES BY CAPSULES Medicin MOUTH I MOUTH I BY MOUTH I e HOUR PRIOR HOUR PRIOR HOUR PRIOR TO DENTAL TO DENTAL TO DENTAL APPOINTMENT APPOINTMENT APPOINTMEN T furosemide furosemide No furosemide [facility] 20 mg 20 mg 20 mg Family tablet TAKE tablet TAKE tablet Practic 1 TABLET BY 1 TABLET BY TAKE 1 e MOUTH EVERY MOUTH EVERY TABLET BY DAY DAY MOUTH EVERY DAY escitalopra escitalopra No escitalopr [facility] m 5 mg m 5 mg am 5 mg [facility] tablet TAKE tablet TAKE tablet dic 1 TABLET BY 1 TABLET BY TAKE 1 Sports MOUTH EVERY MOUTH EVERY TABLET BY Medicin DAY WITH DAY WITH MOUTH e BREAKFAST BREAKFAST EVERY DAY WITH BREAKFAST gabapentin gabapentin No gabapentin [facility] 300 mg 300 mg 300 mg Family capsule capsule capsule Practi c TAKE 1 TAKE 1 TAKE 1 e CAPSULE BY CAPSULE BY CAPSULE BY MOUTH THREE MOUTH THREE MOUTH TIMES A DAY TIMES A DAY THREE TIMES A DAY Estring 2 Estring 2 No Estring 2 [facility] mg (7.5 mg (7.5 mg (7.5 Orthop e mcg/24 mcg/24 mcg/24 dic hour) hour) hour) Sports vaginal vaginal vaginal Medici n ring ring ring e hydralazine hydralazine No hydralazin [facility] 25 mg 25 mg e 25 mg Family tablet TAKE tablet TAKE tablet Practic 1 TABLET BY 1 TABLET BY TAKE 1 e MOUTH TWICE MOUTH TWICE TABLET BY A DAY A DAY MOUTH TWICE A DAY ezetimibe ezetimibe No ezetimibe [facility] 10 mg 10 mg 10 mg [facility] tablet TAKE tablet TAKE tablet dic 1 TABLET BY 1 TABLET BY TAKE 1 Sports MOUTH EVERY MOUTH EVERY TABLET BY Medicin DAY DAY MOUTH e EVERY DAY hydrocodone hydrocodone No hydrocodon [facility] 5 5 e 5 Family mg-acetamin mg-acetamin mg-acetami Practic ophen 325 ophen 325 nophen 325 e mg tablet mg tablet mg tablet TAKE 1 TAKE 1 TAKE 1 TABLET BY TABLET BY TABLET BY MOUTH EVERY MOUTH EVERY MOUTH 6 HOURS 6 HOURS EVERY 6 NEEDED NEEDED HOURS NEEDED fluconazole fluconazole No fluconazol [facility] 150 mg 150 mg e 150 mg [facility] tablet 1 tablet 1 tablet 1 dic TABLET TABLET TABLET Sports ORALLY NOW, ORALLY NOW, ORALLY Medicin THEN AGAIN THEN AGAIN NOW, THEN e IN 72 HOURS IN 72 HOURS AGAIN IN 4 DAY(S) 4 DAY(S) 72 HOURS 4 DAY(S) [facility] XR 5 XR 5 XR 5 Family mg-1,000 mg mg-1,000 mg mg-1,000 Practic tablet, tablet, mg tablet, e extended extended extended release release release TAKE 1 TAKE 1 TAKE 1 TABLET BY TABLET BY TABLET BY MOUTH EVERY MOUTH EVERY MOUTH DAY IN THE DAY IN THE EVERY DAY MORNING MORNING IN THE MORNING folic acid folic acid No folic acid [facility] 1 mg tablet 1 mg tablet 1 mg O rthope TAKE 1 TAKE 1 tablet dic TABLET BY TABLET BY TAKE 1 Spo rts MOUTH EVERY MOUTH EVERY TABLET BY Medicin DAY DAY MOUTH e EVERY DAY lisinopril lisinopril No lisinopril [facility] 20 mg 20 mg 20 mg Family tablet TAKE tablet TAKE tablet Practic 2 TABLETS 2 TABLETS TAKE 2 e BY MOUTH BY MOUTH TABLETS BY EVERY DAY EVERY DAY MOUTH EVERY DAY furosemide furosemide No furosemide [facility] 20 mg 20 mg 20 mg [facility] tablet TAKE tablet TAKE tablet dic 1 TABLET BY 1 TABLET BY TAKE 1 Sports MOUTH EVERY MOUTH EVERY TABLET BY Medicin DAY DAY MOUTH e EVERY DAY Livalo 4 mg Livalo 4 mg No Livalo 4 [facility] tablet TAKE tablet TAKE mg tablet Family 1 TABLET BY 1 TABLET BY TAKE 1 Practic MOUTH MOUTH TABLET BY e EVERYDAY AT EVERYDAY AT MOUTH BEDTIME BEDTIME EVERYDAY AT BEDTIME hydralazine hydralazine No hydralazin [facility] 25 mg 25 mg e 25 mg [facility] tablet TAKE tablet TAKE tablet dic 1 TABLET BY 1 TABLET BY TAKE 1 Sports MOUTH THREE MOUTH THREE TABLET BY Medicin TIMES A DAY TIMES A DAY MOUTH e THREE TIMES A DAY Miralax Miralax No Miralax [facility] hydrocodone hydrocodone No hydrocodon [facility] 7.5 7.5 e 7.5 [facility] mg-acetamin mg-acetamin mg-acetami dic ophen 325 ophen 325 nophen 325 Sports mg tablet mg tablet mg tablet Medicin TAKE 1 TAKE 1 TAKE 1 e TABLET BY TABLET BY TABLET BY MOUTH EVERY MOUTH EVERY MOUTH 6 TO 8 6 TO 8 EVERY 6 TO HOURS HOURS 8 HOURS NEEDED FOR NEEDED FOR NEEDED FOR 28 DAYS 28 DAYS 28 DAYS mupirocin 2 mupirocin 2 No mupirocin [facility] % topical % topical 2 % Famil y ointment ointment topical Prac tic ointment e amoxicillin amoxicillin No amoxicilli [facility] 500 500 n 500 [facility] mg-potassiu mg-potassiu mg-potassi dic m m um Sports clavulanate clavulanate clavulanat Medicin 125 mg 125 mg e 125 mg e tablet tablet tablet nifedipine nifedipine No nifedipine [facility] ER 30 mg ER 30 mg ER 30 mg Fam gail tablet,exte tablet,exte tablet,ext Practic nded nded ended e release release release TAKE 1 TAKE 1 TAKE 1 TABLET BY TABLET BY TABLET BY MOUTH EVERY MOUTH EVERY MOUTH DAY DAY EVERY DAY Jardiance Jardiance No Jardiance [facility] 25 mg 25 mg 25 mg [facility] tablet tablet tablet dic Sports Medicin e Novolog Novolog No Novolog [facility] FlexPen [...] TDD CF 1:30 50 50 TDD 50 [facility] XR 5 XR 5 XR 5 [facility] mg-1,000 mg mg-1,000 mg mg-1,000 dic tablet, tablet, mg tablet, Spo rts extended extended extended Med icin release release release e TAKE 1 TAKE 1 TAKE 1 TABLET BY TABLET BY TABLET BY MOUTH EVERY MOUTH EVERY MOUTH DAY IN THE DAY IN THE EVERY DAY MORNING MORNING IN THE MORNING nystatin-tr nystatin-tr No nystatin-t [facility] iamcinolone iamcinolone riamcinolo Family 100,000 100,000 [...] DAYS TWICE A DAY FOR 30 DAYS lisinopril lisinopril No lisinopril [facility] 20 mg 20 mg 20 mg [facility] tablet tablet tablet dic Sports Medicin e omeprazole omeprazole No omeprazole [facility] 20 mg 20 mg 20 mg Family capsule,del capsule,del capsule,de Practic ayed ayed layed e release release release TAKE 1 TAKE 1 TAKE 1 CAP(S) CAP(S) CAP(S) ORALLY ONCE ORALLY ONCE ORALLY A DAY 30 A DAY 30 ONCE A DAY MINUTES MINUTES 30 MINUTES BEFORE BEFORE BEFORE BREAKFAST BREAKFAST BREAKFAST 90 DAYS 90 DAYS 90 DAYS Livalo 4 mg Livalo 4 mg No Livalo 4 [facility] tablet TAKE tablet TAKE mg tablet [facility] 1 TABLET BY 1 TABLET BY TAKE 1 dic MOUTH MOUTH TABLET BY Sports EVERYDAY AT EVERYDAY AT MOUTH Medicin BEDTIME BEDTIME EVERYDAY e AT BEDTIME Premarin Premarin No Premarin Perry benny 0.625 [...] DAYS 30 DAYS WEEK FOR 30 DAYS metformin metformin No metformin [facility] ER 500 mg ER 500 mg ER 500 mg [facility] 24 hr 24 hr 24 hr dic tablet,exte tablet,exte tablet,ext Sports nded nded ended Medicin release release release e Soliqua Soliqua No Soliqua [facility] 100/33 [...] INCREASE INCREASE MORNING DIRECTED DIRECTED INCREASE DIRECTED Myrbetriq Myrbetriq No Myrbetriq [facility] 50 mg 50 mg 50 mg [facility] tablet,exte tablet,exte tablet,ext dic nded nded ended Sports release release release Medici n e valsartan valsartan No valsartan [facility] 320 mg 320 mg 320 mg Family tablet TAKE tablet TAKE tablet Practic 1 TABLET BY 1 TABLET BY TAKE 1 e MOUTH EVERY MOUTH EVERY TABLET BY DAY DAY MOUTH EVERY DAY Novolog Novolog No Novolog [facility]lin [...] USING >200 USING >200 USING CF 1:30 CF 1:30 CF 1:30 TOTAL DAILY TOTAL DAILY TOTAL DOSE IS 50 DOSE IS 50 DAILY DOSE UNITS UNITS IS 50 UNITS Vitamin D3 Vitamin D3 No Vitamin D3 [facility] Family Practic e omeprazole omeprazole No omeprazole [facility] 40 mg 40 mg 40 mg [facility] capsule,del capsule,del capsule,de dic ayed ayed layed Sports release release release Medici n TAKE 1 TAKE 1 TAKE 1 e CAPSULE BY CAPSULE BY CAPSULE BY MOUTH EVERY MOUTH EVERY MOUTH DAY DAY EVERY DAY Accu-Chek Accu-Chek No Accu-Chek [facility] Fior Meter Fior Meter [facility] Meter Practic e ondansetron ondansetron No ondansetro [facility] HCl 4 mg HCl 4 mg n HCl 4 mg O rthope tablet TAKE tablet TAKE tablet dic 1 TABLET BY 1 TABLET BY TAKE 1 Sports MOUTH EVERY MOUTH EVERY TABLET BY Medicin 6 HOURS 6 HOURS MOUTH e NEEDED FOR NEEDED FOR EVERY 6 NAUSEA NAUSEA HOURS NEEDED FOR NAUSEA Accu-Chek Accu-Chek No Accu-Chek [facility] Fior Plus Fior Plus Fior Plus [facility] test strips test strips test P ractic TEST 3 TEST 3 strips e TIMES A DAY TIMES A DAY TEST 3 DIRECTED DIRECTED TIMES A DAY DIRECTED pravastatin pravastatin No pravastati [facility] 20 mg 20 mg n 20 mg [facility] tablet tablet tablet dic Sports Medicin e Accu-Chek Accu-Chek No Accu-Chek [facility] Fastclix Fastclix Fastclix Fam gail Lancet Drum Lancet Drum Lancet Practic USE USE Drum USE e DIRECTED 3 DIRECTED 3 TIMES DAILY TIMES DAILY DIRECTED 3 TIMES DAILY pregabalin pregabalin No pregabalin [facility] 75 mg 75 mg 75 mg [facility] capsule capsule capsule dic TAKE 1 TAKE 1 TAKE 1 Sports CAPSULES CAPSULES CAPSULES Med icin EVERY EVERY EVERY e MORNING & MORNING & MORNING & TAKE 2 TAKE 2 TAKE 2 CAPSULES BY CAPSULES BY CAPSULES MOUTH AT MOUTH AT BY MOUTH BEDTIME BEDTIME AT BEDTIME Accu-Chek Accu-Chek No Accu-Chek [facility] FastClix FastClix FastClix Fam gail Lancing Lancing Lancing Practi c Device Device Device e Saline Saline No Saline [facility] Nasal 0.65 Nasal 0.65 Nasal 0.65 [facility] % spray % spray % spray dic aerosol aerosol aerosol Sports Medicin e acetaminoph acetaminoph [facility] en 300 en 300 hen 300 Family mg-codeine mg-codeine mg-codeine Practic 60 mg 60 mg 60 mg e tablet TAKE tablet TAKE tablet 1 TABLET BY 1 TABLET BY TAKE 1 MOUTH EVERY MOUTH EVERY TABLET BY 6 HOURS 6 HOURS MOUTH NEEDED NEEDED EVERY 6 HOURS NEEDED Soliqua Soliqua No Soliqua Arlin 100/33 100 100/33 100 100/33 100 [facility] unit-33 unit-33 unit-33 dic mcg/mL mcg/mL mcg/mL Sports subcutaneou subcutaneou subcutaneo Medicin s insulin s insulin us insulin e pen GIVE 36 pen GIVE 36 pen GIVE UNITS IN UNITS IN 36 UNITS THE MORNING THE MORNING IN THE AND AND MORNING INCREASE INCREASE AND DIRECTED: DIRECTED: INCREASE TOTAL DAILY TOTAL DAILY DOSE IS 60 DOSE IS 60 DIRECTED: UNITS UNITS TOTAL DAILY DOSE IS 60 UNITS acyclovir acyclovir No acyclovir [facility] 800 mg 800 mg 800 mg Family tablet tablet tablet Practic e BD Shaina 2nd BD Shaina 2nd No BD Shaina Arlin Gen Pen Gen Pen 2nd Gen Orthop e Needle 32 Needle 32 Pen Needle dic gauge x gauge x 32 gauge x Spo rts " USE " USE " USE Medicin DIRECTED DIRECTED e ONCE DAILY ONCE DAILY DIRECTED ONCE DAILY alprazolam alprazolam No alprazolam [facility] 0.25 mg 0.25 mg 0.25 mg Family tablet TAKE tablet TAKE tablet Practic 1 TO 2 1 TO 2 TAKE 1 TO e TABLETS BY TABLETS BY 2 TABLETS MOUTH PRIOR MOUTH PRIOR BY MOUTH TO CT TO CT PRIOR TO SCAN/PET SCAN/PET CT SCAN SCAN SCAN/PET SCAN trimethopri trimethopri No trimethopr [facility] m 100 mg m 100 mg im 100 mg Or thope tablet tablet tablet dic Sports Medicin e aspirin 81 aspirin 81 No 1 Q1D aspirin 81 [facility] mg mg mg Family tablet,noam tablet,noam tablet,del Practic yed release yed release ayed e Take 1 Take 1 release tablet tablet Take 1 every day every day tablet by oral by oral every day route as route as by oral directed. directed. route as directed. Trulicity Trulicity No Trulicity [facility] 4.5 mg/0.5 4.5 mg/0.5 4.5 mg/0.5 [facility] mL mL mL dic subcutaneou subcutaneou subcutaneo Sports s pen s pen us pen Medicin injector injector injector e BD BD No BD [facility] Ultra-Fine Ultra-Fine Ultra-Fine Family Shaina Pen Shaina Pen Shaina Pen Pra ctic Needle 32 Needle 32 Needle 32 e gauge x gauge x gauge x " USE " USE " USE DIRECTED DIRECTED 4 TIMES 4 TIMES DIRECTED 4 DAILY DAILY TIMES DAILY valsartan valsartan No valsartan [facility] 320 mg 320 mg 320 mg [facility] tablet TAKE tablet TAKE tablet dic 1 TABLET BY 1 TABLET BY TAKE 1 Sports MOUTH EVERY MOUTH EVERY TABLET BY Medicin DAY DAY MOUTH e EVERY DAY budesonide budesonide No budesonide [facility] 1 mg/2 mL 1 mg/2 mL [...] TWICE A DAY carvedilol carvedilol No carvedilol [facility] 12.5 mg 12.5 mg 12.5 mg Family [...] A DAY MOUTH e TWICE A DAY cefixime cefixime No cefixime [...] - TWICE DAILY cinacalcet cinacalcet No cinacalcet [facility] 30 mg 30 mg 30 mg [facility] tablet TAKE tablet TAKE tablet dic 1 TABLET BY 1 TABLET BY TAKE 1 Sports MOUTH TWICE MOUTH TWICE TABLET BY Medicin A DAY A DAY MOUTH e TWICE A DAY cinacalcet cinacalcet No cinacalcet [facility] 30 mg 30 mg 30 mg Family tablet TAKE tablet TAKE tablet Practic 1 TABLET BY 1 TABLET BY TAKE 1 e MOUTH TWICE MOUTH TWICE TABLET BY A DAY A DAY MOUTH TWICE A DAY clindamycin clindamycin No clindamyci [facility] 2 % vaginal 2 % vaginal n 2 % [facility] cream cream vaginal dic cream Sports Medicin e clonidine clonidine No clonidine [facility] HCl 0.1 mg HCl 0.1 mg HCl 0.1 mg Family tablet TAKE tablet TAKE tablet Practic 1 TABLET BY 1 TABLET BY TAKE 1 e MOUTH 3 MOUTH 3 TABLET BY TIMES A DAY TIMES A DAY MOUTH 3 TIMES A DAY clonidine clonidine No clonidine [facility] HCl 0.1 mg HCl 0.1 mg HCl 0.1 mg [facility] tablet 1/2 tablet 1/2 tablet 1/2 dic TAB THREE TAB THREE TAB THREE Sports TIMES DAILY TIMES DAILY TIMES Medicin DAILY e CoQ-10 200 CoQ-10 200 No CoQ-10 200 [facility] mg mg mg Family Practic e Co Q-10 Co Q-10 No Co Q-10 [facility] (with Vit (with Vit (with Vit [facility] E) 100 mg-5 E) 100 mg-5 E) 100 dic unit unit mg-5 unit Sports capsule RX capsule RX capsule RX Medicin by other by other MD by other e Estring 2 Estring 2 No Estring 2 [facility] mg (7.5 mg (7.5 mg (7.5 Family mcg/24 mcg/24 mcg/24 Practic hour) hour) hour) e vaginal vaginal vaginal ring UISE ring UISE ring UISE DIRECTED DIRECTED DIRECTED Crestor 10 Crestor 10 No Crestor 10 [facility] mg tablet mg tablet mg tablet [facility] RX by other RX by other RX by dic MD MD kathy Muir Medicin e ezetimibe ezetimibe No ezetimibe [facility] 10 mg 10 mg 10 mg Family tablet TAKE tablet TAKE tablet Practic 1 TABLET BY 1 TABLET BY TAKE 1 e MOUTH EVERY MOUTH EVERY TABLET BY DAY DAY MOUTH EVERY DAY DulcoEase DulcoEase No DulcoEase [facility] 100 mg 100 mg 100 mg [facility] capsule RX capsule RX capsule RX dic by other MD by other MD by other Sports MD Medicin e fluconazole fluconazole No fluconazol [facility] 150 mg 150 mg e 150 mg Family tablet 1 tablet 1 tablet 1 Pra ctic TABLET TABLET TABLET e ORALLY NOW, ORALLY NOW, ORALLY THEN AGAIN THEN AGAIN NOW, THEN IN 72 HOURS IN 72 HOURS AGAIN IN 4 DAY(S) 4 DAY(S) 72 HOURS 4 DAY(S) ezetimibe ezetimibe No ezetimibe [facility] 10 mg 10 mg 10 mg [facility] tablet TAKE tablet TAKE tablet dic 1 TABLET BY 1 TABLET BY TAKE 1 Sports MOUTH EVERY MOUTH EVERY TABLET BY Medicin DAY DAY MOUTH e EVERY DAY furosemide furosemide No furosemide [facility] 20 mg 20 mg 20 mg Family tablet TAKE tablet TAKE tablet Practic 1 TABLET BY 1 TABLET BY TAKE 1 e MOUTH EVERY MOUTH EVERY TABLET BY DAY DAY MOUTH EVERY DAY fluconazole fluconazole No fluconazol [facility] 150 mg 150 mg e 150 mg [facility] tablet 1 tablet 1 tablet 1 dic TABLET TABLET TABLET Sports ORALLY NOW, ORALLY NOW, ORALLY Medicin THEN AGAIN THEN AGAIN NOW, THEN e IN 72 HOURS IN 72 HOURS AGAIN IN 4 DAY(S) 4 DAY(S) 72 HOURS 4 DAY(S) hydralazine hydralazine No hydralazin [facility] 25 mg 25 mg e 25 mg Family tablet TAKE tablet TAKE tablet Practic 1 TABLET BY 1 TABLET BY TAKE 1 e MOUTH THREE MOUTH THREE TABLET BY TIMES A DAY TIMES A DAY MOUTH THREE TIMES A DAY furosemide furosemide No furosemide [facility] 20 mg 20 mg 20 mg [facility] tablet TAKE tablet TAKE tablet dic 1 TABLET BY 1 TABLET BY TAKE 1 Sports MOUTH EVERY MOUTH EVERY TABLET BY Medicin DAY DAY MOUTH e EVERY DAY hydrocodone hydrocodone No [facility] 5 5 e 5 Family mg-acetamin mg-acetamin mg-acetami Practic ophen 325 ophen 325 nophen 325 e mg tablet mg tablet mg tablet TAKE 1 TAKE 1 TAKE 1 TABLET BY TABLET BY TABLET BY MOUTH EVERY MOUTH EVERY MOUTH 6 HOURS 6 HOURS EVERY 6 NEEDED NEEDED HOURS NEEDED gabapentin gabapentin No gabapentin [facility] 300 mg 300 mg 300 mg [facility] capsule capsule capsule dic TAKE 1 TAKE 1 TAKE 1 Sports CAPSULE BY CAPSULE BY CAPSULE BY Medicin MOUTH THREE MOUTH THREE MOUTH e TIMES A DAY TIMES A DAY THREE TIMES A DAY hydrocodone hydrocodone No [facility] 7.5 7.5 e 7.5 Family mg-acetamin mg-acetamin mg-acetami Practic ophen 325 ophen 325 nophen 325 e mg tablet mg tablet mg tablet TAKE 1 TAKE 1 TAKE 1 TABLET BY TABLET BY TABLET BY MOUTH EVERY MOUTH EVERY MOUTH 8 HOURS 8 HOURS EVERY 8 NEEDED NEEDED HOURS NEEDED hydralazine hydralazine No hydralazin [facility] 25 mg 25 mg e 25 mg [facility] tablet TAKE tablet TAKE tablet dic 1 TABLET BY 1 TABLET BY TAKE 1 Sports MOUTH TWICE MOUTH TWICE TABLET BY Medicin A DAY A DAY MOUTH e TWICE A DAY [facility] No 1 Q1D [facility] XR 5 XR 5 XR 5 [...] 90 morning days. days. for 90 days. hydrocodone hydrocodone No hydrocodon [facility] 5 5 e 5 [facility] mg-acetamin mg-acetamin mg-acetami dic ophen 325 ophen 325 nophen 325 Sports mg tablet mg tablet mg tablet Medicin TAKE 1 TAKE 1 TAKE 1 e TABLET BY TABLET BY TABLET BY MOUTH EVERY MOUTH EVERY MOUTH 6 HOURS 6 HOURS EVERY 6 NEEDED NEEDED HOURS NEEDED lisinopril lisinopril No lisinopril [facility] 20 mg 20 mg 20 mg Family tablet TAKE tablet TAKE tablet Practic 2 TABLETS 2 TABLETS TAKE 2 e BY MOUTH BY MOUTH TABLETS BY EVERY DAY EVERY DAY MOUTH EVERY DAY ID NOW ID NOW No ID NOW Arlin COVID-19 COVID-19 COVID-19 Ort hope Test Kit Test Kit Test Kit dic TEST TEST TEST Sports DIRECTED DIRECTED DIRECTED Med icin TODAY TODAY TODAY e Livalo 4 mg Livalo 4 mg No Livalo 4 Village tablet TAKE tablet TAKE mg tablet Family 1 TABLET BY 1 TABLET BY TAKE 1 Practic MOUTH MOUTH TABLET BY e EVERYDAY AT EVERYDAY AT MOUTH BEDTIME BEDTIME EVERYDAY AT BEDTIME irbesartan irbesartan No irbesartan [facility] 300 mg 300 mg 300 mg [facility] tablet RX tablet RX tablet RX dic by other MD by other MD by other Sports MD Medicin e Miralax Miralax No Miralax [facility] Family Practic e Jentadueto Jentadueto No Jentadueto Arlin XR [...] EVERY DAY MORNING MORNING IN THE MORNING mupirocin 2 mupirocin 2 No mupirocin [facility] % topical % topical 2 % Famil y ointment ointment topical Prac tic ointment e Livalo 4 mg Livalo 4 mg No Livalo 4 [facility] tablet TAKE tablet TAKE mg tablet [facility] 1 TABLET BY 1 TABLET BY TAKE 1 dic MOUTH MOUTH TABLET BY Sports EVERYDAY AT EVERYDAY AT MOUTH Medicin BEDTIME BEDTIME EVERYDAY e AT BEDTIME nifedipine nifedipine No nifedipine [facility] ER 30 mg ER 30 mg ER 30 mg Fam gail tablet,exte tablet,exte tablet,ext Practic nded nded ended e release release release TAKE 1 TAKE 1 TAKE 1 TABLET BY TABLET BY TABLET BY MOUTH EVERY MOUTH EVERY MOUTH DAY DAY EVERY DAY metformin metformin No metformin [facility] ER 500 [...] WITH DINNER WITH DINNER EVENING WITH DINNER Novolog Novolog No Novolog [facility] e FlexPen [...] TDD CF 1:30 50 50 TDD 50 nifedipine nifedipine No nifedipine [facility] ER 30 mg ER 30 mg ER 30 mg Ort hope tablet,exte tablet,exte tablet,ext dic nded nded ended Sports release release release Medici n TAKE 1 TAKE 1 TAKE 1 e TABLET BY TABLET BY TABLET BY MOUTH EVERY MOUTH EVERY MOUTH DAY DAY EVERY DAY nystatin-tr nystatin-tr No nystatin-t [facility] 100,000 100,000 ne 100,000 Pra ctic unit/g-0.1 unit/g-0.1 unit/g-0.1 e % topical % topical % topical cream APPLY cream APPLY cream 1 1 APPLY 1 APPLICATION APPLICATION APPLICATIO TO AFFECTED TO AFFECTED N TO AREA AREA AFFECTED EXTERNALLY EXTERNALLY AREA TWICE A DAY TWICE A DAY EXTERNALLY FOR 30 DAYS FOR 30 DAYS TWICE A DAY FOR 30 DAYS nifedipine nifedipine No nifedipine [facility] ER 30 mg ER 30 mg ER 30 mg Ort hope tablet,exte tablet,exte tablet,ext dic nded nded ended Sports release 24 release 24 release 24 Medicin hr TAKE 1 hr TAKE 1 hr TAKE 1 e TABLET BY TABLET BY TABLET BY MOUTH EVERY MOUTH EVERY MOUTH DAY DAY EVERY DAY omeprazole omeprazole No omeprazole [facility] 20 mg 20 mg 20 mg Family capsule,del capsule,del capsule,de Practic ayed ayed layed e release 1 release 1 release 1 CAPSULE BY CAPSULE BY CAPSULE BY MOUTH MOUTH MOUTH DAILY, 30 DAILY, 30 DAILY, 30 MINUTES MINUTES MINUTES BEFORE BEFORE BEFORE BREAKFAST BREAKFAST BREAKFAST Novolog Novolog No Novolog [facility] Flexpen Flexpen [...] TDD CF 1:30 50 50 TDD 50 pregabalin pregabalin No 1capsul TID pregabalin [facility] 50 mg 50 mg e(s) 50 mg Family capsule capsule capsule Practi c Take 1 Take 1 Take 1 e capsule 3 capsule 3 capsule 3 times a day times a day times a by oral by oral day by route. route. oral route. nystatin-tr nystatin-tr No nystatin-t [facility]lin iamcinolone iamcinolone [...] DAYS TWICE A DAY FOR 30 DAYS pregabalin pregabalin No pregabalin [facility] 75 mg 75 mg 75 mg Family capsule capsule capsule Practi c TAKE 1 TAKE 1 TAKE 1 e CAPSULE BY CAPSULE BY CAPSULE BY MOUTH TWICE MOUTH TWICE MOUTH A DAY FOR A DAY FOR TWICE A 28 DAYS 28 DAYS DAY FOR 28 DAYS Ozempic Ozempic No Ozempic [facility]lin 0.25 [...] DAYS. 30 DAYS. Premarin Premarin No Premarin Perry benny 0.625 [...] DAYS Soliqua Soliqua No Soliqua Isaiag e / 100 100/33 100 100/33 100 Family unit-33 unit-33 unit-33 Practi c mcg/mL mcg/mL mcg/mL e subcutaneou subcutaneou subcutaneo s insulin s insulin us insulin pen Give 36 pen Give 36 pen Give units in AM units in AM 36 units and and in AM and increase as increase as increase directed: directed: as TDD 60 TDD 60 directed: TDD 60 Premarin Premarin No Premarin Aza maritza 0.625 [...] DAYS 30 DAYS WEEK FOR 30 DAYS [facility] 320 mg 320 mg 320 mg Family tablet TAKE tablet TAKE tablet Practic 1 TABLET BY 1 TABLET BY TAKE 1 e MOUTH EVERY MOUTH EVERY TABLET BY DAY DAY MOUTH EVERY DAY Restasis Restasis No Restasis Aza marizta 0.05 % eye 0.05 % eye 0.05 % eye [facility] drops in a drops in a drops in a dic dropperette dropperette dropperett Sports INSTILL 1 INSTILL 1 e INSTILL Medicin DROP INTO DROP INTO 1 DROP e BOTH EYES BOTH EYES INTO BOTH TWICE A DAY TWICE A DAY EYES TWICE A DAY Vitamin D3 Vitamin D3 No Vitamin D3 [facility] Pract[facility] e Soliqua Soliqua No Soliqua Arlin / 100 100/33 100 100/33 100 [facility] unit-33 [...] Sports MD Medicin e Hasmukh Noe No Darbytadueto Arlin XR 5 XR 5 [...] EVENING WITH DINNER nifedipine nifedipine No nifedipine Arlni ER 30 [...] other MD by other Sports MD Rajesh oNe No Hasmukh Arlin XR 5 XR 5 [...] other MD by other Sports Medicin e amoxicillin amoxicillin No amoxicilli Arlin [...] other MD by other MD by other aditi WARD Crestor 10 Crestor 10 No Crestor 10 [facility]lin mg tablet mg tablet mg tablet [facility] RX by other RX by other RX by dic MD MD kathy Skinner DulcoEase DulcoEase No DulcoEase [facility]lin 100 mg 100 mg 100 mg [facility] capsule RX capsule RX capsule RX dic by other by other by kathy Skinner ezetimibe ezetimibe No ezetimibe [facility]lin 10 mg [...] by other by other Sports MD Miles Ortegadueto Jentadueto No Jentadueto Arlin XR 5 XR 5 XR 5 [facility] mg-1,000 mg mg-1,000 mg mg-1,000 dic tablet, tablet, mg tablet, Spo rts extended extended extended Med icin release release release e TAKE 1 TAKE 1 TAKE 1 TABLET BY TABLET BY TABLET BY MOUTH EVERY MOUTH EVERY MOUTH DAY IN THE DAY IN THE EVERY DAY MORNING MORNING IN THE MORNING Accu-Chek Accu-Chek No Accu-Chek [facility] Fior Meter Fior Meter Fior Family Meter Practic e Livalo 4 mg Livalo 4 mg No Livalo 4 [facility]lin tablet TAKE tablet TAKE mg tablet [facility] 1 TABLET BY 1 TABLET BY TAKE 1 dic MOUTH MOUTH TABLET BY Sports EVERYDAY AT EVERYDAY AT MOUTH Medicin BEDTIME BEDTIME EVERYDAY e AT BEDTIME Accu-Chek Accu-Chek No Accu-Chek [facility] Fior Plus Fior Plus Fior Plus Family test strips test strips test P ractic TEST 3 TEST 3 strips e TIMES A DAY TIMES A DAY TEST 3 DIRECTED DIRECTED TIMES A DAY DIRECTED metformin metformin No metformin Arlin ER 500 [...] WITH DINNER WITH DINNER EVENING WITH DINNER Accu-Chek Accu-Chek No Accu-Chek [facility] [facility] Fastclix Fastclix Fam gail Lancet Drum Lancet Drum Lancet Practic USE USE Drum USE e DIRECTED 3 DIRECTED 3 TIMES DAILY TIMES DAILY DIRECTED 3 TIMES DAILY nifedipine nifedipine No nifedipine Arlin ER 30 mg ER 30 mg ER 30 mg Ort hope tablet,exte tablet,exte tablet,ext dic nded nded ended Sports release release release Medici n TAKE 1 TAKE 1 TAKE 1 e TABLET BY TABLET BY TABLET BY MOUTH EVERY MOUTH EVERY MOUTH DAY DAY EVERY DAY Accu-Chek Accu-Chek No Accu-Chek [facility] FastClix FastClix FastClix Fam gail Lancing Lancing Lancing Practi c Device Device Device e nifedipine nifedipine No nifedipine Arlin ER 30 mg ER 30 mg ER 30 mg Ort hope tablet,exte tablet,exte tablet,ext dic nded nded ended Sports release 24 release 24 release 24 Medicin hr TAKE 1 hr TAKE 1 hr TAKE 1 e TABLET BY TABLET BY TABLET BY MOUTH EVERY MOUTH EVERY MOUTH DAY DAY EVERY DAY acetaminoph acetaminoph No acetaminop [facility] en 300 en 300 hen 300 Family mg-codeine mg-codeine mg-codeine Practic 60 mg 60 mg 60 mg e tablet TAKE tablet TAKE tablet 1 TABLET BY 1 TABLET BY TAKE 1 MOUTH EVERY MOUTH EVERY TABLET BY 6 HOURS 6 HOURS MOUTH NEEDED NEEDED EVERY 6 HOURS NEEDED Ozempic Ozempic No Ozempic Arlin 0.25 mg [...] 30 WEEK FOR DAYS. DAYS. 30 DAYS. acyclovir acyclovir No acyclovir [facility] 800 mg 800 mg 800 mg Family tablet tablet tablet Practic e Premarin Premarin No Premarin Aza maritza 0.625 [...] DAYS 30 DAYS WEEK FOR 30 DAYS alprazolam alprazolam No alprazolam [facility] 0.25 mg 0.25 mg 0.25 mg Family tablet TAKE tablet TAKE tablet Practic 1 TO 2 1 TO 2 TAKE 1 TO e TABLETS BY TABLETS BY 2 TABLETS MOUTH PRIOR MOUTH PRIOR BY MOUTH TO CT TO CT PRIOR TO SCAN/PET SCAN/PET CT SCAN SCAN SCAN/PET SCAN Restasis Restasis No Restasis Aza maritza 0.05 % eye 0.05 % eye 0.05 % eye Orthope drops in a drops in a drops in a dic dropperette dropperette dropperett Sports INSTILL 1 INSTILL 1 e INSTILL Medicin DROP INTO DROP INTO 1 DROP e BOTH EYES BOTH EYES INTO BOTH TWICE A DAY TWICE A DAY EYES TWICE A DAY aspirin 81 aspirin 81 No 1 Q1D aspirin 81 [facility] mg mg mg Family tablet,noam tablet,noam tablet,del Practic yed release yed release ayed e Take 1 Take 1 release tablet tablet Take 1 every day every day tablet by oral by oral every day route as route as by oral directed. directed. route as directed. Soliqua Soliqua No Soliqua Arlin 100/33 100 100/33 100 100/33 100 Orthope unit-33 unit-33 unit-33 dic mcg/mL mcg/mL mcg/mL Sports subcutaneou subcutaneou subcutaneo Medicin s insulin s insulin us insulin e pen pen pen BD Shaina 2nd BD Shaina 2nd No BD Shaina [place] Gen Pen Gen Pen 2nd Gen Family Needle 32 Needle 32 Pen Needle Practic gauge x gauge x 32 gauge x e " USE " USE " USE DIRECTED DIRECTED 4 TIMES 4 TIMES DIRECTED 4 DAILY DAILY TIMES DAILY Tradjenta 5 Tradjenta 5 No Tradjenta Arlin mg tablet mg tablet 5 mg Ortho pe RX by other RX by other tablet RX dic MD MD by other Sports MD Medicin e carvedilol carvedilol No carvedilol [facility] 12.5 mg 12.5 mg 12.5 mg Family tablet TAKE tablet TAKE tablet Practic 1 TABLET BY 1 TABLET BY TAKE 1 e MOUTH TWICE MOUTH TWICE TABLET BY A DAY A DAY MOUTH TWICE A DAY Tresiba Tresiba No Tresiba Arlin FlexTouch FlexTouch [...] UNITS* DIRECTED *TOTAL DAILY DOSE 50 UNITS* carvedilol carvedilol No carvedilol [facility] 25 mg 25 mg 25 mg Family tablet TAKE tablet TAKE tablet Practic 1 TABLET BY 1 TABLET BY TAKE 1 e MOUTH TWICE MOUTH TWICE TABLET BY A DAY A DAY MOUTH TWICE A DAY Trulicity 3 Trulicity 3 No Trulicity Arlin [...] 90 DAYS. DAYS. DIRECTED FOR 90 DAYS. cinacalcet cinacalcet No cinacalcet [facility] 30 mg 30 mg 30 mg Family tablet TAKE tablet TAKE tablet Practic 1 TABLET BY 1 TABLET BY TAKE 1 e MOUTH TWICE MOUTH TWICE TABLET BY A DAY A DAY MOUTH TWICE A DAY valsartan valsartan No valsartan Arlin 320 mg 320 mg 320 mg [facility] tablet TAKE tablet TAKE tablet dic 1 TABLET BY 1 TABLET BY TAKE 1 Sports MOUTH EVERY MOUTH EVERY TABLET BY Medicin DAY DAY MOUTH e EVERY DAY clonidine clonidine No clonidine [facility] HCl 0.1 mg HCl 0.1 mg HCl 0.1 mg Family tablet 1/2 tablet 1/2 tablet 1/2 Practic TAB THREE TAB THREE TAB THREE e TIMES DAILY TIMES DAILY TIMES DAILY Accu-Chek Accu-Chek No Accu-Chek Arlin Fior Plus Fior Plus Fior Plus [facility] test strips test strips test d ic TEST 3 TEST 3 strips Sports TIMES A DAY TIMES A DAY TEST 3 Medicin DIRECTED DIRECTED TIMES A e DAY DIRECTED CoQ-10 200 CoQ-10 200 No CoQ-10 200 [facility] mg mg mg Family Practic e acetaminoph acetaminoph No acetaminop Arlin en 300 en 300 hen 300 [facility]ope mg-codeine mg-codeine mg-codeine dic 60 mg 60 mg 60 mg Sports tablet TAKE tablet TAKE tablet Medicin 1 TABLET BY 1 TABLET BY TAKE 1 e MOUTH EVERY MOUTH EVERY TABLET BY 6 HOURS 6 HOURS MOUTH NEEDED NEEDED EVERY 6 HOURS NEEDED Estring 2 Estring 2 No Estring 2 Village mg (7.5 mg (7.5 mg (7.5 Family mcg/24 mcg/24 mcg/24 Practic hour) hour) hour) e vaginal vaginal vaginal ring UISE ring UISE ring UISE DIRECTED DIRECTED DIRECTED acyclovir acyclovir No acyclovir Arlin 800 mg 800 mg 800 mg [facility] tablet TAKE tablet TAKE tablet dic 1 TABLET BY 1 TABLET BY TAKE 1 Sports MOUTH TWICE MOUTH TWICE TABLET BY Medicin A DAY A DAY MOUTH e TWICE A DAY ezetimibe ezetimibe No ezetimibe [facility] 10 mg 10 mg 10 mg Family tablet TAKE tablet TAKE tablet Practic 1 TABLET BY 1 TABLET BY TAKE 1 e MOUTH EVERY MOUTH EVERY TABLET BY DAY DAY MOUTH EVERY DAY alprazolam alprazolam No alprazolam [facility]lin 0.25 mg 0.25 mg 0.25 mg Orthop e tablet TAKE tablet TAKE tablet dic 1 TO 2 1 TO 2 TAKE 1 TO Sports TABLETS BY TABLETS BY 2 TABLETS Medicin MOUTH PRIOR MOUTH PRIOR BY MOUTH e TO CT TO CT PRIOR TO SCAN/PET SCAN/PET CT SCAN SCAN SCAN/PET SCAN furosemide furosemide No furosemide [facility] 20 mg 20 mg 20 mg Family tablet TAKE tablet TAKE tablet Practic 1 TABLET BY 1 TABLET BY TAKE 1 e MOUTH EVERY MOUTH EVERY TABLET BY DAY DAY MOUTH EVERY DAY amlodipine amlodipine No amlodipine [facility]lin 10 mg 10 mg 10 mg [facility] tablet RX tablet RX tablet RX dic by other MD by other MD by other Sports MD Medicin e gabapentin gabapentin No gabapentin [place] 300 mg 300 mg 300 mg Family capsule capsule capsule Practi c TAKE 1 TAKE 1 TAKE 1 e CAPSULE BY CAPSULE BY CAPSULE BY MOUTH THREE MOUTH THREE MOUTH TIMES A DAY TIMES A DAY THREE TIMES A DAY amlodipine amlodipine No 5mg amlodipine Arlin 5 mg tablet 5 mg tablet 5 mg O rthope 5 mg by 5 mg by tablet 5 dic oral route. oral route. mg by oral Sports route. Medicin e Humalog Humalog No Humalog Vill[facility] e KwikPen [...] 50 TDD 50 CF 1:30; TDD 50 amoxicillin amoxicillin No amoxicilli Arlin 500 mg 500 mg n 500 mg [facility] capsule capsule capsule dic TAKE 4 TAKE 4 TAKE 4 Sports CAPSULES BY CAPSULES BY CAPSULES Medicin MOUTH I MOUTH I BY MOUTH I e HOUR PRIOR HOUR PRIOR HOUR PRIOR TO DENTAL TO DENTAL TO DENTAL APPOINTMENT APPOINTMENT APPOINTMEN T hydralazine hydralazine No hydralazin [place] 25 mg 25 mg e 25 mg Family tablet TAKE tablet TAKE tablet Practic 1 TABLET BY 1 TABLET BY TAKE 1 e MOUTH TWICE MOUTH TWICE TABLET BY A DAY A DAY MOUTH TWICE A DAY amoxicillin amoxicillin No amoxicilli Arlin 500 500 n 500 Orthope mg-potassiu mg-potassiu mg-potassi dic m m um Sports clavulanate clavulanate clavulanat Medicin 125 mg 125 mg e 125 mg e tablet tablet tablet hydrocodone hydrocodone No hydrocodon [place] 5 5 e 5 Family mg-acetamin mg-acetamin mg-acetami Practic ophen 325 ophen 325 nophen 325 e mg tablet mg tablet mg tablet TAKE 1 TAKE 1 TAKE 1 TABLET BY TABLET BY TABLET BY MOUTH EVERY MOUTH EVERY MOUTH 6 HOURS 6 HOURS EVERY 6 NEEDED NEEDED HOURS NEEDED aspirin,buf aspirin,buf No 81mg aspirin,bu Arlin fered fered ffered Orthope (calcium (calcium (calcium dic carb-mag-al carb-mag-al carb-mag-a Sports uminum) 81 uminum) 81 luminum) Medicin mg oral del mg oral del 81 mg oral e rel tablet rel tablet del rel 81 mg by 81 mg by tablet 81 oral route. oral route. mg by oral route. ID NOW ID NOW No ID NOW [facility] COVID-19 COVID-19 COVID-19 Fam gail Test Kit Test Kit Test Kit Pra ctic TEST TEST TEST e DIRECTED DIRECTED DIRECTED TODAY TODAY TODAY BD BD No BD Arlin Ultra-Fine Ultra-Fine Ultra-Fine [facility] Shaina Pen Shaina Pen Shaina Pen dic Needle 32 Needle 32 Needle 32 Sports gauge x gauge x gauge x Medici n " USE " USE " USE e DIRECTED DIRECTED 4 TIMES 4 TIMES DIRECTED 4 DAILY DAILY TIMES DAILY [facility] No [facility] XR 5 XR 5 XR 5 Family mg-1,000 mg mg-1,000 mg mg-1,000 Practic tablet, tablet, mg tablet, e extended extended extended release release release TAKE 1 TAKE 1 TAKE 1 TABLET BY TABLET BY TABLET BY MOUTH EVERY MOUTH EVERY MOUTH DAY IN THE DAY IN THE EVERY DAY MORNING MORNING IN THE MORNING budesonide budesonide No budesonide Arlin 1 mg/2 [...] DAILY TWICE DAILY ONCE TO TWICE DAILY lisinopril lisinopril No lisinopril [place] 20 mg 20 mg 20 mg Family tablet TAKE tablet TAKE tablet Practic 2 TABLETS 2 TABLETS TAKE 2 e BY MOUTH BY MOUTH TABLETS BY EVERY DAY EVERY DAY MOUTH EVERY DAY carvedilol carvedilol No carvedilol Arlin 12.5 mg 12.5 mg 12.5 mg Orthop e tablet TAKE tablet TAKE tablet dic 1 TABLET BY 1 TABLET BY TAKE 1 Sports MOUTH TWICE MOUTH TWICE TABLET BY Medicin A DAY A DAY MOUTH e TWICE A DAY Livalo 4 mg Livalo 4 mg No Livalo 4 Village tablet TAKE tablet TAKE mg tablet Family 1 TABLET BY 1 TABLET BY TAKE 1 Practic MOUTH MOUTH TABLET BY e EVERYDAY AT EVERYDAY AT MOUTH BEDTIME BEDTIME EVERYDAY AT BEDTIME carvedilol carvedilol No 25mg BID carvedilol Arlin 25 mg 25 mg 25 mg [facility] tablet 25 tablet 25 tablet 25 dic mg twice a mg twice a mg twice a Sports day by oral day by oral day by Medicin route. route. oral e route. Miralax Miralax No Miralax [facility] e Family Practic e cefixime cefixime No cefixime Aza maritza 400 mg 400 mg 400 mg [facility] capsule capsule capsule dic EMPTY 1 EMPTY 1 EMPTY 1 Sports CAPSULE CAPSULE CAPSULE Medici n INTO INTO INTO e IRRIGATION IRRIGATION IRRIGATION SYSTEM, ADD SYSTEM, ADD SYSTEM, DISTILLED DISTILLED ADD WATER, WATER, DISTILLED IRRIGATE - IRRIGATE - WATER, TWICE DAILY TWICE DAILY IRRIGATE - TWICE DAILY nifedipine nifedipine No nifedipine [place] ER 30 mg ER 30 mg ER 30 mg Fam gail tablet,exte tablet,exte tablet,ext Practic nded nded ended e release release release cholecalcif cholecalcif No 1000U cholecalci Arlin loren loren ferol [facility] (vitamin (vitamin (vitamin dic D3) 25 mcg D3) 25 mcg D3) 25 mcg Sports (1,000 (1,000 (1,000 Medicin unit) unit) unit) e capsule capsule capsule 1000 units 1000 units 1000 units by oral by oral by oral route. route. route. nifedipine nifedipine No nifedipine [place] ER 30 mg ER 30 mg ER 30 mg Fam gail tablet,exte tablet,exte tablet,ext Practic nded nded ended e release 24 release 24 release 24 hr TAKE 1 hr TAKE 1 hr TAKE 1 TABLET BY TABLET BY TABLET BY MOUTH EVERY MOUTH EVERY MOUTH DAY DAY EVERY DAY clindamycin clindamycin No clindamyci Arlin 2 % vaginal 2 % vaginal n 2 % [facility] cream cream vaginal dic cream Sports Medicin e Novolog Novolog No Novolog Vill[facility] e Flexpen [...] TDD CF 1:30 50 50 TDD 50 clonidine clonidine No .1mg BID clonidine Arlin HCl 0.1 mg HCl 0.1 mg HCl 0.1 mg [facility] tablet 0.1 tablet 0.1 tablet 0.1 dic mg twice a mg twice a mg twice a Sports day by oral day by oral day by Medicin route. route. oral e route. Premarin Premarin No Premarin Perry benny 0.625 [...] DAYS 30 DAYS WEEK FOR 30 DAYS Co Q-10 Co Q-10 No Co Q-10 Arlin (with Vit (with Vit (with Vit [facility] E) 100 mg-5 E) 100 mg-5 E) 100 dic unit unit mg-5 unit Sports capsule RX capsule RX capsule RX Medicin by other MD by other MD by other e MD Nic Lucero No Nic Manzanares e 100/33 [...] INCREASE INCREASE MORNING DIRECTED DIRECTED INCREASE DIRECTED Crestor 10 Crestor 10 No Crestor 10 Arlin mg tablet mg tablet mg tablet [facility] RX by other RX by other RX by dic MD MD kathy WARD Sports Medicin aditi valsartan valsartan No valsartan [facility] 320 mg 320 mg 320 mg Family tablet TAKE tablet TAKE tablet Practic 1 TABLET BY 1 TABLET BY TAKE 1 e MOUTH EVERY MOUTH EVERY TABLET BY DAY DAY MOUTH EVERY DAY DulcoEase DulcoEase No DulcoEase [facility]lin 100 mg 100 mg 100 mg [facility] capsule RX capsule RX capsule RX dic by other MD by other MD by other Sports Medicin e Vitamin D3 Vitamin D3 No Vitamin D3 [facility] Family Practic e Accu-Chek Accu-Chek No Accu-Chek [facility] Fior Meter Fior Meter Fior Family Meter Practic e ezetimibe ezetimibe No ezetimibe [facility]lin 10 mg 10 mg 10 mg [facility] tablet TAKE tablet TAKE tablet dic 1 TABLET BY 1 TABLET BY TAKE 1 Sports MOUTH EVERY MOUTH EVERY TABLET BY Medicin DAY DAY MOUTH e EVERY DAY Accu-Chek Accu-Chek No Accu-Chek [facility] Fior Plus Fior Plus Firo Plus Family test strips test strips test P ractic TEST 3 TEST 3 strips e TIMES A DAY TIMES A DAY TEST 3 DIRECTED DIRECTED TIMES A DAY DIRECTED fluconazole fluconazole No fluconazol Arlin 150 mg 150 mg e 150 mg [facility] tablet 1 tablet 1 tablet 1 dic TABLET TABLET TABLET Sports ORALLY NOW, ORALLY NOW, ORALLY Medicin THEN AGAIN THEN AGAIN NOW, THEN e IN 72 HOURS IN 72 HOURS AGAIN IN 4 DAY(S) 4 DAY(S) 72 HOURS 4 DAY(S) Accu-Chek Accu-Chek No Accu-Chek [facility] Fastclix Fastclix Fastclix Fam gail Lancet Drum Lancet Drum Lancet Practic USE USE Drum USE e DIRECTED 3 DIRECTED 3 TIMES DAILY TIMES DAILY DIRECTED 3 TIMES DAILY furosemide furosemide No 20mg BID furosemide Arlin 20 mg 20 mg 20 mg [facility] tablet 20 tablet 20 tablet 20 dic mg twice a mg twice a mg twice a Sports day by oral day by oral day by Medicin route. route. oral e route. Accu-Chek Accu-Chek No Accu-Chek [facility] FastClix FastClix FastClix Fam gail Lancing Lancing Lancing Practi c Device Device Device e hydralazine hydralazine No hydralazin [facility]lin 25 mg 25 mg e 25 mg [facility] tablet TAKE tablet TAKE tablet dic 1 TABLET BY 1 TABLET BY TAKE 1 Sports MOUTH THREE MOUTH THREE TABLET BY Medicin TIMES A DAY TIMES A DAY MOUTH e THREE TIMES A DAY acetaminoph acetaminoph No acetaminop [place] en 300 en 300 hen 300 Family mg-codeine mg-codeine mg-codeine Practic 60 mg 60 mg 60 mg e tablet TAKE tablet TAKE tablet 1 TABLET BY 1 TABLET BY TAKE 1 MOUTH EVERY MOUTH EVERY TABLET BY 6 HOURS 6 HOURS MOUTH NEEDED NEEDED EVERY 6 HOURS NEEDED hydrocodone hydrocodone No hydrocodon Arlin 5 5 e 5 [facility] mg-acetamin mg-acetamin mg-acetami dic ophen 325 ophen 325 nophen 325 Sports mg tablet mg tablet mg tablet Medicin TAKE 1 TAKE 1 TAKE 1 e TABLET BY TABLET BY TABLET BY MOUTH EVERY MOUTH EVERY MOUTH 6 HOURS 6 HOURS EVERY 6 NEEDED NEEDED HOURS NEEDED acyclovir acyclovir No acyclovir [place] 800 mg 800 mg 800 mg Family tablet tablet tablet Practic e ID NOW ID NOW No ID NOW Arlin COVID-19 COVID-19 COVID-19 Ort estelline Test Kit Test Kit Test Kit dic TEST TEST TEST Sports DIRECTED DIRECTED DIRECTED Med icin TODAY TODAY TODAY e alprazolam alprazolam No alprazolam [facility] 0.25 mg 0.25 mg 0.25 mg Family tablet TAKE tablet TAKE tablet Practic 1 TO 2 1 TO 2 TAKE 1 TO e TABLETS BY TABLETS BY 2 TABLETS MOUTH PRIOR MOUTH PRIOR BY MOUTH TO CT TO CT PRIOR TO SCAN/PET SCAN/PET CT SCAN SCAN SCAN/PET SCAN irbesartan irbesartan No 300mg irbesartan Arlin 300 mg 300 mg 300 mg [facility] tablet 300 tablet 300 tablet 300 dic mg by oral mg by oral mg by oral Sports route. route. route. Medicin e aspirin 81 aspirin 81 No 1 Q1D aspirin 81 [facility] mg mg mg Family tablet,noam tablet,noam tablet,del Practic yed release yed release ayed e Take 1 Take 1 release tablet tablet Take 1 every day every day tablet by oral by oral every day route as route as by oral directed. directed. route as directed. Hasmukh Ortegadufifi No Hasmukh Arlin XR 5 XR 5 XR 5 [facility] mg-1,000 mg mg-1,000 mg mg-1,000 dic tablet, tablet, mg tablet, Spo rts extended extended extended Med icin release 1 release 1 release 1 e tablet with tablet with tablet a meal a meal with a Orally Once Orally Once meal a day a day Orally Once a day BD Shaina 2nd BD Shaina 2nd No BD Shaina [place] Gen Pen Gen Pen 2nd Gen Family Needle 32 Needle 32 Pen Needle Practic gauge x gauge x 32 gauge x e " USE " USE " USE DIRECTED DIRECTED 4 TIMES 4 TIMES DIRECTED 4 DAILY DAILY TIMES DAILY Livalo 1 mg Livalo 1 mg No 2mg Livalo 1 Arlin tablet 2 mg tablet 2 mg mg tablet Orth[facility] by oral by oral 2 mg by dic route. route. oral Sports route. Medicin e budesonide budesonide No budesonide [facility] 1 mg/2 mL 1 mg/2 mL [...] DAILY TWICE DAILY ONCE TO TWICE DAILY Livalo 4 mg Livalo 4 mg No Livalo 4 Arlin tablet TAKE tablet TAKE mg tablet [facility] 1 TABLET BY 1 TABLET BY TAKE 1 dic MOUTH MOUTH TABLET BY Sports EVERYDAY AT EVERYDAY AT MOUTH Medicin BEDTIME BEDTIME EVERYDAY e AT BEDTIME carvedilol carvedilol No carvedilol [facility] 12.5 mg 12.5 mg 12.5 mg Family tablet TAKE tablet TAKE tablet Practic 1 TABLET BY 1 TABLET BY TAKE 1 e MOUTH TWICE MOUTH TWICE TABLET BY A DAY A DAY MOUTH TWICE A DAY metformin metformin No metformin Arlin ER 500 [...] WITH DINNER WITH DINNER EVENING WITH DINNER cefixime cefixime No cefixime Perry benny 400 mg 400 mg 400 mg Family capsule capsule capsule Practi c EMPTY 1 EMPTY 1 EMPTY 1 e CAPSULE CAPSULE CAPSULE INTO INTO INTO IRRIGATION IRRIGATION IRRIGATION SYSTEM, ADD SYSTEM, ADD SYSTEM, DISTILLED DISTILLED ADD WATER, WATER, DISTILLED IRRIGATE - IRRIGATE - WATER, TWICE DAILY TWICE DAILY IRRIGATE - TWICE DAILY mupirocin 2 mupirocin 2 No mupirocin Arlin % topical % topical 2 % Ortho pe ointment ointment topical dic ointment Sports Medicin e cinacalcet cinacalcet No cinacalcet [facility] 30 mg 30 mg 30 mg Family tablet TAKE tablet TAKE tablet Practic 1 TABLET BY 1 TABLET BY TAKE 1 e MOUTH TWICE MOUTH TWICE TABLET BY A DAY A DAY MOUTH TWICE A DAY nifedipine nifedipine No nifedipine [facility]lin ER 30 mg ER 30 mg ER 30 mg Ort hope tablet,exte tablet,exte tablet,ext dic nded nded ended Sports release release release Medici n TAKE 1 TAKE 1 TAKE 1 e TABLET BY TABLET BY TABLET BY MOUTH EVERY MOUTH EVERY MOUTH DAY DAY EVERY DAY clindamycin clindamycin No clindamyci [facility] 2 % vaginal 2 % vaginal n 2 % Family cream cream vaginal Practic cream e nifedipine nifedipine No nifedipine [facility]lin ER 30 mg ER 30 mg ER 30 mg Ort hope tablet,exte tablet,exte tablet,ext dic nded nded ended Sports release 24 release 24 release 24 Medicin hr TAKE 1 hr TAKE 1 hr TAKE 1 e TABLET BY TABLET BY TABLET BY MOUTH EVERY MOUTH EVERY MOUTH DAY DAY EVERY DAY clonidine clonidine No clonidine [facility] HCl 0.1 mg HCl 0.1 mg HCl 0.1 mg Family tablet TAKE tablet TAKE tablet Practic 1 TABLET BY 1 TABLET BY TAKE 1 e MOUTH 3 MOUTH 3 TABLET BY TIMES A DAY TIMES A DAY MOUTH 3 TIMES A DAY Novolog Novolog No Novolog Arlin FlexPen [...] TDD CF 1:30 50 50 TDD 50 CoQ-10 200 CoQ-10 200 No CoQ-10 200 [facility] mg mg mg Family Practic e nystatin-tr nystatin-tr No nystatin-t Arlin iamcinolone iamcinolone [...] DAYS TWICE A DAY FOR 30 DAYS Estring 2 Estring 2 No Estring 2 Village mg (7.5 mg (7.5 mg (7.5 Family mcg/24 mcg/24 mcg/24 Practic hour) hour) hour) e vaginal vaginal vaginal ring UISE ring UISE ring UISE DIRECTED DIRECTED DIRECTED omeprazole omeprazole No omeprazole Arlin 20 mg [...] BREAKFAST 90 DAYS 90 DAYS 90 DAYS ezetimibe ezetimibe No ezetimibe [place] 10 mg 10 mg 10 mg Family tablet TAKE tablet TAKE tablet Practic 1 TABLET BY 1 TABLET BY TAKE 1 e MOUTH EVERY MOUTH EVERY TABLET BY DAY DAY MOUTH EVERY DAY Ozempic Ozempic No Ozempic Arlin [...] 30 WEEK FOR DAYS. DAYS. 30 DAYS. metFORMIN metFORMIN Yes UT HCl - 500 HCl - 500 Physi ci MG Oral MG Oral ans Tablet Tablet fluconazole fluconazole No fluconazol [facility] 150 mg 150 mg e 150 mg Family tablet 1 tablet 1 tablet 1 Pra ctic TABLET TABLET TABLET e ORALLY NOW, ORALLY NOW, ORALLY THEN AGAIN THEN AGAIN NOW, THEN IN 72 HOURS IN 72 HOURS AGAIN IN 4 DAY(S) 4 DAY(S) 72 HOURS 4 DAY(S) polyethylen polyethylen No 17g polyethyle Arlin e glycol e glycol ne glycol Or thope 3350 4 gram 3350 4 gram 3350 4 dic oral powder oral powder gram oral Sports packet 17 g packet 17 g powder Medicin by oral by oral packet 17 e route. route. g by oral route. furosemide furosemide No furosemide [facility] 20 mg 20 mg 20 mg Family tablet TAKE tablet TAKE tablet Practic 1 TABLET BY 1 TABLET BY TAKE 1 e MOUTH EVERY MOUTH EVERY TABLET BY DAY DAY MOUTH EVERY DAY Premarin Premarin No Premarin Aza maritza 0.625 [...] DAYS 30 DAYS WEEK FOR 30 DAYS gabapentin gabapentin No gabapentin [facility] 300 mg 300 mg 300 mg Family capsule capsule capsule Practi c TAKE 1 TAKE 1 TAKE 1 e CAPSULE BY CAPSULE BY CAPSULE BY MOUTH THREE MOUTH THREE MOUTH TIMES A DAY TIMES A DAY THREE TIMES A DAY Restasis Restasis No Restasis Aza maritza 0.05 % eye 0.05 % eye 0.05 % eye [facility] drops in a drops in a drops in a dic dropperette dropperette dropperett Sports INSTILL 1 INSTILL 1 e INSTILL Medicin DROP INTO DROP INTO 1 DROP e BOTH EYES BOTH EYES INTO BOTH TWICE A DAY TWICE A DAY EYES TWICE A DAY Tresiba Tresiba Yes [facility] FlexTouch FlexTouch Physi ci 100 UNIT/ML 100 UNIT/ML a ns Subcutaneou Subcutaneou s Solution s Solution Pen-injecto Pen-injecto r r hydralazine hydralazine No hydralazin [facility] 25 mg 25 mg e 25 mg Family tablet TAKE tablet TAKE tablet Practic 1 TABLET BY 1 TABLET BY TAKE 1 e MOUTH THREE MOUTH THREE TABLET BY TIMES A DAY TIMES A DAY MOUTH THREE TIMES A DAY spironolact spironolact No 25mg spironolac Ariln one 25 mg one 25 mg tone 25 mg [facility] tablet 25 tablet 25 tablet 25 dic mg by oral mg by oral mg by oral Sports route. route. route. Medicin e hydrocodone hydrocodone No hydrocodon [place] 5 5 e 5 Family mg-acetamin mg-acetamin mg-acetami Practic ophen 325 ophen 325 nophen 325 e mg tablet mg tablet mg tablet TAKE 1 TAKE 1 TAKE 1 TABLET BY TABLET BY TABLET BY MOUTH EVERY MOUTH EVERY MOUTH 6 HOURS 6 HOURS EVERY 6 NEEDED NEEDED HOURS NEEDED Tresiba Tresiba No Tresiba Arlin FlexTouch FlexTouch [...] UNITS* DIRECTED *TOTAL DAILY DOSE 50 UNITS* [facility] No [facility] XR 5 XR 5 XR 5 Family mg-1,000 mg mg-1,000 mg mg-1,000 Practic tablet, tablet, mg tablet, e extended extended extended release release release TAKE 1 TAKE 1 TAKE 1 TABLET BY TABLET BY TABLET BY MOUTH EVERY MOUTH EVERY MOUTH DAY IN THE DAY IN THE EVERY DAY MORNING MORNING IN THE MORNING Trulicity Trulicity No Trulicity [facility]lin 1.5 mg/0.5 1.5 mg/0.5 1.5 mg/0.5 [facility] mL mL mL dic subcutaneou subcutaneou subcutaneo Sports s pen s pen us pen Medicin injector injector injector e Tradjenta 5 Tradjenta 5 Yes U T MG Oral MG Oral Physici Tablet Tablet ans lisinopril lisinopril No lisinopril [facility] 20 mg 20 mg 20 mg Family tablet TAKE tablet TAKE tablet Practic 2 TABLETS 2 TABLETS TAKE 2 e BY MOUTH BY MOUTH TABLETS BY EVERY DAY EVERY DAY MOUTH EVERY DAY Trulicity 3 Trulicity 3 No Trulicity Arlin [...] 90 DAYS. DAYS. DIRECTED FOR 90 DAYS. Livalo 4 mg Livalo 4 mg No Livalo 4 Village tablet TAKE tablet TAKE mg tablet Family 1 TABLET BY 1 TABLET BY TAKE 1 Practic MOUTH MOUTH TABLET BY e EVERYDAY AT EVERYDAY AT MOUTH BEDTIME BEDTIME EVERYDAY AT BEDTIME valsartan valsartan No valsartan [facility] 320 mg 320 mg 320 mg [facility] tablet TAKE tablet TAKE tablet dic 1 TABLET BY 1 TABLET BY TAKE 1 Sports MOUTH EVERY MOUTH EVERY TABLET BY Medicin DAY DAY MOUTH e EVERY DAY Miralax Miralax No Miralax [facility] Family Practic e Accu-Chek Accu-Chek No Accu-Chek Arlin Fior Meter Fior Meter Fior Orthope Meter dic Sports Medicin e mupirocin 2 mupirocin 2 No mupirocin [place] % topical % topical 2 % Famil y ointment ointment topical Prac tic ointment e Trulicity Trulicity Yes [place] 0.75 0.75 Physici MG/0.5ML MG/0.5ML ans Subcutaneou Subcutaneou s Solution s Solution Pen-injecto Pen-injecto r r Accu-Chek Accu-Chek No Accu-Chek [facility]lin Fastclix Fastclix Fastclix Ort hope Lancet Drum Lancet Drum Lancet dic Drum Sports Medicin e nifedipine nifedipine No nifedipine [place] ER 30 mg ER 30 mg ER 30 mg Fam gail tablet,exte tablet,exte tablet,ext Practic nded nded ended e release release release TAKE 1 TAKE 1 TAKE 1 TABLET BY TABLET BY TABLET BY MOUTH EVERY MOUTH EVERY MOUTH DAY DAY EVERY DAY Accu-Chek Accu-Chek No Accu-Chek [facility] FastClix FastClix FastClix Ort hope Lancing Lancing Lancing dic Device Device Device Sports Medicin e Novolog Novolog No Novolog [facility] Flexpen [...] TDD CF 1:30 50 50 TDD 50 alprazolam alprazolam No alprazolam Arlin 0.25 mg 0.25 mg 0.25 mg Orthop e tablet TAKE tablet TAKE tablet dic 1 TO 2 1 TO 2 TAKE 1 TO Sports TABLETS BY TABLETS BY 2 TABLETS Medicin MOUTH PRIOR MOUTH PRIOR BY MOUTH e TO CT TO CT PRIOR TO SCAN/PET SCAN/PET CT SCAN SCAN SCAN/PET SCAN nystatin-tr nystatin-tr No nystatin-t [facility] iamcinolone iamcinolone riamcinolo Family 100,000 100,000 [...] DAYS TWICE A DAY FOR 30 DAYS amoxicillin amoxicillin No amoxicilli Arlin [phone] n 875 Orthope mg-potassiu mg-potassiu mg-potassi dic m m um Sports clavulanate clavulanate clavulanat Medicin 125 mg 125 mg e 125 mg e tablet TAKE tablet TAKE tablet 1 TABLET BY 1 TABLET BY TAKE 1 MOUTH TWO MOUTH TWO TABLET BY TIMES A DAY TIMES A DAY MOUTH TWO WITH FOOD WITH FOOD TIMES A DAY WITH FOOD amLODIPine amLODIPine Yes UT Besylate 5 Besylate 5 Phy sici MG Oral MG Oral ans Tablet Tablet Appearex Appearex No Appearex Aza maritza Orthope dic Sports Medicin e omeprazole omeprazole No omeprazole [facility] 20 mg 20 mg 20 mg Family capsule,del capsule,del capsule,de Practic ayed ayed layed e release release release aspirin 81 aspirin 81 No aspirin 81 Arlin mg mg mg Orthope tablet,noam tablet,noam tablet,del dic yed release yed release ayed S ports release Medicin e Premarin Premarin No Premarin Perry benny 0.625 [...] DAYS 30 DAYS WEEK FOR 30 DAYS atorvastati atorvastati No atorvastat Arlin n 40 mg n 40 mg in 40 mg Ortho pe tablet TAKE tablet TAKE tablet dic 1 TABLET BY 1 TABLET BY TAKE 1 Sports MOUTH AT MOUTH AT TABLET BY Me dicin BEDTIME BEDTIME MOUTH AT e BEDTIME Soliqua Soliqua No Soliqua Vill[facility] e 100/33 [...] INCREASE INCREASE MORNING DIRECTED DIRECTED INCREASE DIRECTED Immunizations Ordered Filled Date Status Comments Source Immunization Name Immunization Name COVID-19, mRNA, COVID-19, mRNA, 2022-03-23 Completed [facility] LNP-S, bivalent LNP-S, bivalent 00:00:00 Prac alaina booster, PF, 30 booster, PF, 30 mcg/0.3 mL dose mcg/0.3 mL dose ([employer]) - ([employer]) ML - ML COVID-19, mRNA, COVID-19, mRNA, 2021-03-25 Completed [facility] LNP-S, PF, 30 LNP-S, PF, 30 00:00:00 Practice mcg/0.3 mL dose mcg/0.3 mL dose ([employer]) - ([employer]) ML - ML COVID-19, mRNA, COVID-19, mRNA, 2020-07-19 Completed [facility] LNP-S, PF, 30 LNP-S, PF, 30 00:00:00 Practice mcg/0.3 mL dose mcg/0.3 mL dose ([employer]) ([employer]) COVID-19, mRNA, COVID-19, mRNA, 2020-07-19 Completed [facility] LNP-S, PF, 30 LNP-S, PF, 30 00:00:00 Practice mcg/0.3 mL dose mcg/0.3 mL dose ([employer]) ([employer]) COVID-19, mRNA, COVID-19, mRNA, 2020-07-19 Completed [facility] LNP-S, PF, 30 LNP-S, PF, 30 00:00:00 Practice mcg/0.3 mL dose mcg/0.3 mL dose ([employer]) ([employer]) COVID-19, mRNA, COVID-19, mRNA, 2020-07-19 Completed [facility] LNP-S, PF, 30 LNP-S, PF, 30 00:00:00 Practice mcg/0.3 mL dose mcg/0.3 mL dose ([employer]) ([employer]) PFIZER COVID-19 2020-07-15 Completed [facility] 00:00:00 [facility] PFIZER COVID-19 2020-07-15 Completed [facility] VACCINATION 00:00:00 [facility] PFIZER COVID-19 2020-07-15 Completed [facility] VACCINATION 00:00:00 [facility] PFIZER COVID-19 2020-07-15 Completed [facility] VACCINATION 00:00:00 [facility] PFIZER COVID-19 2020-07-15 Completed [facility] 00:00:00 Hospital COVID-19, mRNA, COVID-19, mRNA, 2020-07-15 Completed [facility]al e[facility] LNP-S, PF, 30 LNP-S, PF, 30 00:00:00 Orthoped ic mcg/0.3 mL dose mcg/0.3 mL dose Spor ts Medicine ([employer]) ([employer]) COVID-19, mRNA, COVID-19, mRNA, 2020-07-15 Completed [facility] LNP-S, PF, 30 LNP-S, PF, 30 00:00:00 Practice mcg/0.3 mL dose mcg/0.3 mL dose ([employer]) - ([employer]) ML - ML PFIZER COVID-19 2020-06-23 Completed [facility] 00:00:00 Hospital PFIZER COVID-19 2020-06-23 Completed [facility] 00:00:00 Hospital PFIZER COVID-19 2020-06-23 Completed [facility] 00:00:00 Hospital PFIZER COVID-19 2020-06-23 Completed [facility] 00:00:00 Hospital PFIZER COVID-19 2020-06-23 Completed [facility] VACCINATION 00:00:00 [facility] COVID-19, mRNA, COVID-19, mRNA, 2020-06-23 Completed Azal ea LNP-S, PF, 30 LNP-S, PF, 30 00:00:00 Orthoped ic mcg/0.3 mL dose mcg/0.3 mL dose Spor ts Medicine ([employer]) ([employer]) COVID-19, mRNA, COVID-19, mRNA, 2020-06-23 Completed [facility] LNP-S, PF, 30 LNP-S, PF, 30 00:00:00 Practice mcg/0.3 mL dose mcg/0.3 mL dose ([employer]) - ([employer]) ML - ML influenza, influenza, 2020-03-27 Completed [facility] injectable, injectable, 00:00:00 Practice quadrivalent quadrivalent influenza, influenza, 2020-03-27 Completed [facility] Family injectable, injectable, 00:00:00 Practice quadrivalent quadrivalent influenza, influenza, 2020-03-27 Completed [facility] injectable, injectable, 00:00:00 Practice quadrivalent quadrivalent influenza, influenza, 2020-03-27 Completed [facility] injectable, injectable, 00:00:00 Practice quadrivalent quadrivalent influenza, influenza, 2020-03-27 Completed [facility] Family injectable, injectable, 00:00:00 Practice quadrivalent quadrivalent PFIZER COVID-19 Unknown Completed [facility]ACC[facility] COVID-19 Unknown Completed [facility] P[facility] COVID-19 Unknown Completed [facility] COVID-19 Unknown Completed [facility] COVID-19 Unknown Completed [facility] COVID-19 Unknown Completed [facility] COVID-19 Unknown Completed [facility] COVID-19 Unknown Completed [facility] COVID-19, mRNA, COVID-19, mRNA, Unknown Completed Azal e[facility] LNP-S, PF, 30 LNP-S, PF, 30 Orthoped ic mcg/0.3 mL dose mcg/0.3 mL dose Spor ts Medicine ([employer]) ([facility]) COVID-19, mRNA, COVID-19, mRNA, Unknown Completed Azal ea LNP-S, PF, 30 LNP-S, PF, 30 Orthoped ic mcg/0.3 mL dose mcg/0.3 mL dose Spor ts Medicine ([employer]) ([facility]) COVID-19, mRNA, COVID-19, mRNA, Unknown Completed Azal ea LNP-S, PF, 30 LNP-S, PF, 30 Orthoped ic mcg/0.3 mL dose mcg/0.3 mL dose Spor ts Medicine ([employer]) ([employer]) COVID-19, mRNA, COVID-19, mRNA, Unknown Completed Azal ea LNP-S, PF, 30 LNP-S, PF, 30 Orthoped ic mcg/0.3 mL dose mcg/0.3 mL dose Spor ts Medicine ([employer]) ([facility]) PFIZER COVID-19 Unknown Completed [facility] COVID-19 Unknown Completed [facility] Vital Signs Vital Name Observation Time Observation Value Comments Source WEIGHT 2023-03-27 72.893 kg 04:00:00 WEIGHT 2023-03-26 76.159 kg 03:49:00 WEIGHT 2023-03-23 75.5 kg 04:00:00 WEIGHT 2023-03-21 73.256 kg 05:00:00 WEIGHT 2023-03-20 72.621 kg 05:39:00 HEIGHT 2023-03-19 165.1 cm 00:31:00 WEIGHT 2023-03-19 73.573 kg 00:31:00 WEIGHT 2023-03-27 72.893 kg 04:00:00 WEIGHT 2023-03-26 76.159 kg 03:49:00 WEIGHT 2023-03-23 75.5 kg 04:00:00 WEIGHT 2023-03-21 73.256 kg 05:00:00 WEIGHT 2023-03-20 72.621 kg 05:39:00 HEIGHT 2023-03-19 165.1 cm 00:31:00 WEIGHT 2023-03-19 73.573 kg 00:31:00 BP Diastolic 2022-11-24 61 mm[Hg] [facility] [...] 00:00:00 Practice Body Weight 2022-02-01 210 [lb_av] [facility] Family 00:00:00 Practice BP Diastolic 2021-12-23 78 mm[Hg] [facility] 00:00:00 Practice Height 2021-12-23 65 [in_i] [facility] 00:00:00 Practice BMI (Body Mass 2021-12-23 34.9 kg/m2 [facility]) 00:00:00 Practice BP Systolic 2021-12-23 157 mm[Hg] [facility] Family 00:00:00 Practice Body Weight 2021-12-23 210 [lb_av] [facility] Family 00:00:00 Practice Body height 2021-11-28 165.1 [...] 2020-04-14 202 [lb_av] [facility] 00:00:00 Practice Heart rate 2023-03-27 68 /min [facility] 17[facility]43[facility]00 [facility] Respiratory rate 2023-03-27 18 /min [facility] Oxygen saturation 2023-03-27 97 /min [facility] Arterial blood 17:43:00 Medical Ce nter by Pulse oximetry Systolic blood 2023-03-27 153 mm[Hg] [facility] pressure 15:53:00 Medical Center Diastolic blood 2023-03-27 62 mm[Hg] [facility] pressure 15:53:00 Medical Center Body temperature 2023-03-[address] [facility] 15[facility] Body weight 2023-03-[address] [facility] 04:00:00 [facility] Center BMI 2023-03-27 26.74 kg/m2 [facility] 04:[facility]00 [facility] Center Heart rate 2023-03-23 72 /min [facility] 09:03:00 [facility] Center Respiratory rate 2023-03-23 19 /min [facility] 09:[facility] Oxygen saturation 2023-03-23 92 /min [facility] Arterial blood 09:03:00 Medical nter by Pulse oximetry Systolic blood 2023-03-23 128 mm[Hg] [facility] pressure 08:37:00 Medical Center Diastolic blood 2023-03-23 45 mm[Hg] [facility] pressure 08:37:00 [facility] Body temperature 2023-03-[address] [facility] 08:37:00 [facility] Body weight 2023-03-[address] [facility] 04:00:00 [facility] BMI 2023-03-23 27.70 kg/m2 [facility] 04:00:00 [facility] Body height 2023-03-[address] [facility] 00:31:00 [facility] Body height 2022-12-13 165.1 cm [facility] 20:07:00 [facility] Body weight 2022-12-13 99.791 kg [facility] 20:07:00 Hospital BMI 2022-12-13 36.61 kg/m2 [facility] 20:07:00 [facility] Systolic blood 2020-01-26 144 mm[Hg] [facility] 14:56:00 Position: Sitting Diastolic blood 2020-01-26 66 mm[Hg] [facility] 14:56:00 Position: Sitting Body height 2020-01-26 63 [in_us] [facility] 14:56:00 Weight 2020-01-26 205.25 [lb_av] [facility] 14:56:00 Body mass index 2020-01-26 36.36 kg/m2 [facility] (BMI) [Ratio] 14:56:00 Body temperature 2020-01-26 98.3 [degF] Method: [facility] 14:56:00 Temporal Heart Rate 2020-01-26 70 /min Location: [facility] 14:56:00 Brachial Artery; Quality: Normal Respiratory rate 2020-01-26 16 /min Quality: Normal [facility] 14:56:00 Temperature Oral 2016-02-14 97.5 F [facility] rmann (F) 21:00:00 Heart Rate 2016-02-14 Elvira Ramos n 21:00:00 Respitory Rate 2016-02-14 [facility] Michael robert 21:00:00 Systolic (mm Hg) 2016-02-14 [...] robert 09:00:00 Temperature Oral 2016-01-19 97.3 F [facility] Manolo rmann (F) 09:00:00 BMI Calculated 2016-01-11 [...] robert 14:00:00 Temperature Oral 2012-10-06 96.3 F [facility] Manolo rmann (F) 08:33:00 Temperature Oral 2012-10-06 97.9 F [facility] rmann (F) 04:00:00 Temperature Oral 2012-10-05 [...] Date / Time Performing Clinician Source Performed RADEX SPI LUMBOSAC COMPL 2023-04-30 00:00:00 Falguni salas [facility] W/BENDING VIEWS Sports Medicine XR, hip + pelvis, 2023-04-30 00:00:00 Arlin Shultz hopedic unilateral, 2 or [address], lumbar spine, w/o 2023-04-30 00:00:00 Arlin Orthopedic contrast Sports Medicine CT, pelvis, w/o contrast 2023-04-30 00:00:00 Falguni salas [facility] Sports [facility] POCT-GLUCOSE METER 2023-03-27 [facility] 2023-03-27 13:[facility] 2023-03-27 11:38[facility] M[facility] ORDER 2023-03-27 11:27:00 Daniel [facility] POCT-GLUCOSE METER 2023-03-27 08:08[facility] ([facility] ONLY) 2023-03-27 03:47:00 Carl [facility] MAGNESIUM 2023-03-27 03:47:00 Carl [facility] PHOSPHORUS 2023-03-27 03:47:00 Carl [facility] COMPREHENSIVE METABOLIC 2023-03-27 03:47:00 Daniel [facility] POCT-GLUCOSE METER 2023-03-27 00:53:00 Daniel [facility] POCT-GLUCOSE METER 2023-03-26 21:15:00 Daniel [facility] POCT-GLUCOSE METER 2023-03-26 17:50:00 Daniel [facility] POCT-GLUCOSE METER 2023-03-26 11:53:[facility] PO[facility]SE METER 2023-03-26 07:43:00 Daniel [facility] CBC (HEMOGRAM ONLY) 2023-03-26 04:19:00 Carl [facility] BASIC METABOLIC PANEL 2023-03-26 04:19:00 Carl [facility] MAGNESIUM 2023-03-26 04:19:00 Carl [facility] PHOSPHORUS 2023-03-26 04:19:00 Carl [facility] URINALYSIS W/ REFLEX URINE 2023-03-25 23:03:[address] [facility] POCT-GLUCOSE METER 2023-03-25 21:12:[facility]SE [facility]ER 2023-03-25 17:38:[facility] POCT-GLUCOSE METER 2023-03-25 14:19:[facility] POCT-GLUCOSE METER 2023-03-25 08:27:[facility] (HE[facility] ONLY) 2023-03-25 05:02:00 Carl [facility] BASIC METABOLIC PANEL 2023-03-25 05:02:00 Carl [facility] MAGNESIUM 2023-03-25 05:02:00 Carl [facility] PHOSPHORUS 2023-03-25 05:02:00 Carl [facility] POCT-GLUCOSE METER 2023-03-24 21:20:00 Daniel [facility] POCT-GLUCOSE METER 2023-03-24 16:19[facility]KUB 1 VIEW 2023-03-24 13:54:[address] [facility] POCT-GLUCOSE METER 2023-03-24 12:48:[facility] POCT-GLUCOSE METER 2023-03-24 07:56:00 Daniel [facility] CBC (HEMOGRAM ONLY) 2023-03-24 03:57:00 Carl [facility] BASIC METABOLIC PANEL 2023-03-24 03:57:00 Carl [facility] MAGNESIUM 2023-03-24 03:57:00 Carl [facility] PHOSPHORUS 2023-03-24 03:57:00 Carl [facility] POCT-GLUCOSE METER 2023-03-23 20:13:00 Daniel [facility] POCT-GLUCOSE METER 2023-03-23 17:00[facility] POCT-[facility]SE METER 2023-03-23 11:06:[facility] POCT-GLUCOSE METER 2023-03-23 06:35:00 Daniel [facility] CBC (HEMOGRAM ONLY) 2023-03-23 02:14:00 Carl [facility] BASIC METABOLIC PANEL 2023-03-23 02:14:00 Carl [facility] MAGNESIUM 2023-03-23 02:14:00 Carl [facility] PHOSPHORUS 2023-03-23 02:14:00 Carl [facility] POCT-GLUCOSE METER 2023-03-22 23:19:00 Daniel [facility] POCT-GLUCOSE METER 2023-03-22 20:40:00 Daniel [facility] XR CHEST 1 VIEW PORTABLE / 2023-03-22 13:36:00 Aubrey Henry [facility] POCT-GLUCOSE METER 2023-03-22 13:34:00 Daniel [facility] CBC (HEMOGRAM ONLY) 2023-03-22 12:26:00 Carl [facility] BASIC METABOLIC PANEL 2023-03-22 12:26:00 Carl, [facility] MAGNESIUM 2023-03-22 12:26:00 Carl [facility] PHOSPHORUS 2023-03-22 12:26:00 Carl [facility] PREPARE RBC 2023-03-22 11:45:00 PallistCarolina carolina [facility] POCT-ACT 2023-03-22 09:49:00 Daniel [facility] TRANSCAROTID ARTERY 2023-03-22 07:46:00 Pallimichael [facility] REVASCULARIZATION (TCAR) [facility] POCT-GLUCOSE METER 2023-03-22 06:45:00 Daniel [facility] ABORH, MANUAL 2023-03-22 00:59:00 Gifty Tate [facility] BASIC METABOLIC PANEL 2023-03-22 00:49:00 Daniel [facility] CBC W/PLT COUNT & AUTO 2023-03-22 00:49:00 Josi [facility] MAGNESIUM 2023-03-22 00:49:00 Minedin [facility] PHOSPHORUS 2023-03-22 [facility]R [facility]23-03-22 [facility] TYPE [facility]EN, AUTOMATED 2023-03-22 00:49:00 PallisterSam [facility] CBC W/PLT COUNT & AUTO 2023-03-22 00:49:00 Josi [facility] POCT-GLUCOSE METER 2023-03-21 21:20:00 Daniel [facility] POCT-GLUCOSE METER 2023-03-21 17:38:00 Daniel [facility] POCT-GLUCOSE METER 2023-03-21 13:13:00 Daniel [facility] CTA BRAIN 2023-03-21 12:30:00 Josi [facility] CTA CAROTID 2023-03-21 12:30:00 Josi [facility] POCT-GLUCOSE METER 2023-03-21 08:37:00 Daniel [facility] BASIC METABOLIC PANEL 2023-03-21 03:54:00 Jessica [facility] MAGNESIUM 2023-03-21 03:54:00 Jessica [facility] CBC W/PLT COUNT & AUTO 2023-03-21 [facility]:54[facility] AUTO 2023-03-21 03:54:[address] [facility] POCT-GLUCOSE METER 2023-03-20 22:17:00 Daniel [facility] MISCELLANEOUS LAB ORDER 2023-03-20 17:19:00 Luca [facility] POCT-GLUCOSE METER 2023-03-20 16:47:[address] [facility] ECHO W CONTRAST & DOPPLER 2023-03-20 15:44:00 Linda Castaneda [facility] URINALYSIS W/ MICROSCOPIC 2023-03-20 13:01:00 Asia Segovia [facility] POCT-GLUCOSE METER 2023-03-20 12:02:[address] [facility] XR CHEST 1 VIEW PORTABLE / 2023-03-20 11:43:00 Asia Segov[facility] BRAIN WITHOUT IV 2023-03-20 09:24:[address] [facility] POCT-GLUCOSE METER 2023-03-20 07:31:[address] [facility] BASIC METABOLIC PANEL 2023-03-20 04:11:00 Jessica [facility] MAGNESIUM 2023-03-20 04:11:00 Jessica [facility] CBC W/PLT COUNT & AUTO 2023-03-20 04:11:[address] [facility] CBC W/PLT COUNT & AUTO 2023-03-20 04:11:[address] [facility] CAROTID DOPPLER BILATERAL 2023-03-19 21:39:00 Ted Felton [facility] POCT-GLUCOSE METER 2023-03-19 [facility] 2023-03-19 17:00:46 Florian Mei [facility] POCT-GLUCOSE METER 2023-03-19 16:58[facility]00 [facility] 2023-03-19 12:32:00 Jessica [facility] MAGNESIUM 2023-03-19 12:32:[facility]UCOSE METER 2023-03-19 11:08[facility]00 [facility] 2023-03-19 08:25[facility] 2023-03-19 03:48:00 Jessica [facility] MAGNESIUM 2023-03-19 03:48:00 Jessica [facility] CBC W/PLT COUNT & AUTO 2023-03-19 03:48:00 [facility] KETONE, BLOOD 2023-03-19 03:48:00 [facility] CBC W/PLT COUNT & AUTO 2023-03-19 03:48:00 [facility] HC LAB HIV-1 AG W/HIV-1&2 2023-03-19 00:38:00 Linda Castaneda [facility] VITAMIN B12 2023-03-19 00:38[facility] 2023-03-19 00:38:00 [facility] HEMOGLOBIN A1C 2023-03-19 00:38:00 [facility] LIPID PANEL 2023-03-19 00:38:00 [facility] C-REACTIVE PROTEIN 2023-03-19 00:38:00 [facility] TSH/FREE T4 IF INDICATED 2023-03-19 00:38:00 [facility] EKG-SCANNED 2023-03-18 00:00:00 Provider, LIPID PANEL 2022-09-26 00:00:00 Provider, Not In [facility] XR, shoulder, 2 or more 2022-09-18 00:00:00 Dickson ervin Orthopedic view Sports Medicine XR, knee, 3 view 2022-09-18 00:00:00 Arlin Damico opedic Sports Medicine EXTERNAL PROVIDER RECORDS 2022-08-28 05:01:00 Doctor Unassigned, [facility] ASSIGNMENT OF BENEFITS 2022-08-04 15:37:10 Doctor Unassigned, [facility] PHYSICIAN ORDERS 2022-07-25 06:01:00 Doctor Unassigned, [facility] XR, hip + pelvis, 2022-03-09 00:00:00 Arlin perezdic unilateral, 4 or more view Sport s Medicine Operation on Neck 2012-09-16 00:00:00 Ramu lanza Practice Repair of Perforated Colon 2012-03-18 00:00:00 [facility] Colonoscopy 2010-06-18 00:00:00 Ramu lester Practice Back Surgery [facility] Fracture Surgery [facility] Heart Stent [facility] Knee Replacement [facility] Neck Surgery [facility] Shoulder Surgery [facility] Operation <sup>1</sup> [facility] Cervical discectomy [facility] replacement<sup>1</sup> Operation<sup>2</sup> [facility] Plan of Care Planned Activity Planned Date Details Comments Source Future Scheduled Test 2024-03-[address] [facility] (12+) [code = Tobacco Cessation Counseling and Screening (12+)] Future Scheduled Test 2024-03-[address] [facility] (12+) [code = Tobacco Cessation Counseling and Screening (12+)] Future Scheduled Test 2024-03-[address] [facility] (12+) [code = Tobacco Cessation Counseling and Screening (12+)] Future Scheduled Test 2024-03-[address] [facility] (12+) [code = Tobacco Cessation Counseling and Screening (12+)] Future Scheduled Test 2024-03-[address] [facility] (12+) [code = Tobacco Cessation Counseling and Screening (12+)] Future Scheduled Test 2024-03-[address] [facility] (12+) [code = Tobacco Cessation Counseling and Screening (12+)] Future Scheduled Test 2024-03-[address] [facility] Scre[facility] (12+) [code = Tobacco Cessation Counseling and Screening (12+)] Future Scheduled Test 2023-04-30 SHINGLES VACCINES (1 [facility] 16:50:15 of 2) [code = SHINGLES VACCINES (1 of 2)] Future Scheduled Test 2023-04-30 65+ PNEUMOCOCCAL [facility] 16:50:15 VACCINE (2 - PCV) [code = 65+ PNEUMOCOCCAL VACCINE (2 - PCV)] Future Scheduled Test 2023-04-30 COVID-19 VACCINE (4 - [facility] 16:50:15 season) [code = COVID-19 VACCINE (4 - season)] Future Scheduled Test 2023-04-30 INFLUENZA VACCINE [facility] 16:50:15 (#1) [code = INFLUENZA VACCINE (#1)] Future Scheduled Test 2023-04-30 SHINGLES VACCINES (1 [facility] 16:50:15 of 2) [code = SHINGLES VACCINES (1 of 2)] Future Scheduled Test 2023-04-30 65+ PNEUMOCOCCAL [facility] 16:50:15 VACCINE (2 - PCV) [code = 65+ PNEUMOCOCCAL VACCINE (2 - PCV)] Future Scheduled Test 2023-04-30 COVID-19 VACCINE ([address] [place] [address] 16:50:15 season) [code = COVID-19 VACCINE ( - season)] Future Scheduled Test 2023-04-30 INFLUENZA VACCINE [facility] 16:50:15 (#1) [code = INFLUENZA VACCINE (#1)] Future Scheduled Test 2023-04-30 SHINGLES VACCINES (1 [facility] 16:50:15 of 2) [code = SHINGLES VACCINES (1 of 2)] Future Scheduled Test 2023-04-30 65+ PNEUMOCOCCAL [facility] 16:50:15 VACCINE (2 - PCV) [code = 65+ PNEUMOCOCCAL VACCINE (2 - PCV)] Future Scheduled Test 2023-04-30 COVID-19 VACCINE ([address] [place] [address] 16:50:15 season) [code = COVID-19 VACCINE ( season)] Future Scheduled Test 2023-04-30 INFLUENZA VACCINE [facility] 16:50:15 (#1) [code = INFLUENZA VACCINE (#1)] Future Scheduled Test 2023-03-[address] [facility] 00:00:00 measurement Medical Center (procedure) [code = 18740898] Future Scheduled Test 2023-03-[address] [facility] 00:00:00 [facility] Center (procedure) [code = 47013704] Future Scheduled Test 2023-03-[address] [facility] 00:00:00 measurement Medical Center (procedure) [code = 53001511] Future Scheduled Test 2023-03-[address] [facility] 00:00:00 measurement [facility] (procedure) [code = 33566500] Future Scheduled Test 2023-03-[address] [facility] 00:00:00 measurement Medical Center (procedure) [code = 55656187] Future Scheduled Test 2023-03-[address] [facility] 00:00:00 measurement Medical Center (procedure) [code = 38899103] Future Scheduled Test 2023-03-[address] [facility] 00:00:00 [facility] (procedure) [code = 50784960] Future Scheduled Test 2023-02-21 SHINGLES VACCINES (1 [facility] 12:53:00 of 2) [code = SHINGLES VACCINES (1 of 2)] Future Scheduled Test 2023-02-21 COVID-19 VACCINE (4 - [facility] 12:53:00 Pfizer series) [code = COVID-19 VACCINE (4 - Pfizer series)] Future Scheduled Test 2023-02-21 65+ PNEUMOCOCCAL [facility] 12:53:00 VACCINE (2 - PCV) [code = 65+ PNEUMOCOCCAL VACCINE (2 - PCV)] Future Scheduled Test 2023-02-21 INFLUENZA VACCINE [facility] 12:53:00 (#1) [code = INFLUENZA VACCINE (#1)] Future Scheduled Test 2023-02-21 SHINGLES VACCINES (1 [facility] 12:53:00 of 2) [code = SHINGLES VACCINES (1 of 2)] Future Scheduled Test 2023-02-21 COVID-19 VACCINE (4 [facility] 12:53:00 Pfizer series) [code = COVID-19 VACCINE (4 - Pfizer series)] Future Scheduled Test 2023-02-21 65+ PNEUMOCOCCAL [facility] 12:53:00 VACCINE (2 - PCV) [code = 65+ PNEUMOCOCCAL VACCINE (2 - PCV)] Future Scheduled Test 2023-02-21 INFLUENZA VACCINE [facility] 12:53:00 (#1) [code = INFLUENZA VACCINE (#1)] Future Scheduled Test 2023-02-16 Influenza Vacc[address] [facility] 00:[facility]:00 (#1) [code = Medical Center Influenza Vaccine (#1)] Future Scheduled Test 2023-02-16 Influenza Vacc[address] [facility] 00:00:00 (#1) [code = Medical Center Influenza Vaccine (#1)] Future Scheduled Test 2023-02-16 Influenza Vacc[address] [facility] 00:00:00 (#1) [code = Medical Center Influenza Vaccine (#1)] Future Scheduled Test 2023-02-16 Influenza Vaccine [facility] 00:00:00 (#1) [code = Medical Center Influenza Vaccine (#1)] Future Scheduled Test 2023-02-16 Influenza Vaccine [facility] 00:00:00 (#1) [code = Medical Center Influenza Vaccine (#1)] Future Scheduled Test 2023-02-16 Influenza Vacc[address] [facility] 00:00:00 (#1) [code = Medical Center Influenza Vaccine (#1)] Future Scheduled Test 2023-02-16 Influenza Vacc[address] [facility] 00:00:00 (#1) [code = Medical Center Influenza Vaccine (#1)] Future Scheduled Test 2023-01-17 SHINGLES VACCINES (1 [facility] 15:59:24 of 2) [code = SHINGLES VACCINES (1 of 2)] Future Scheduled Test 2023-01-17 COVID-19 VACCINE (4 - [facility] 15:59:24 Pfizer series) [code = COVID-19 VACCINE (4 - Pfizer series)] Future Scheduled Test 2023-01-17 65+ PNEUMOCOCCAL [facility] 15:59:24 VACCINE (2 - PCV) [code = 65+ PNEUMOCOCCAL VACCINE (2 - PCV)] Future Scheduled Test 2023-01-17 INFLUENZA VACCINE [facility] 15:59:24 [code = INFLUENZA VACCINE] Future Scheduled Test 2023-01-12 SHINGLES VACCINES (1 [facility] 14:53:49 of 2) [code = SHINGLES VACCINES (1 of 2)] Future Scheduled Test 2023-01-12 COVID-19 VACCINE (4 [facility] 14:53:49 Pfizer series) [code = COVID-19 VACCINE (4 - Pfizer series)] Future Scheduled Test 2023-01-12 65+ PNEUMOCOCCAL [facility] 14:53:49 VACCINE (2 - PCV) [code = 65+ PNEUMOCOCCAL VACCINE (2 - PCV)] Future Scheduled Test 2023-01-12 INFLUENZA VACCINE [facility] 14:53:49 [code = INFLUENZA VACCINE] Future Scheduled Test 2022-12-16 SHINGLES VACCINES (1 [facility] 12:11:42 of 2) [code = SHINGLES VACCINES (1 of 2)] Future Scheduled Test 2022-12-16 COVID-19 VACCINE (4 [facility] 12:11:42 Pfizer series) [code = COVID-19 VACCINE (4 - Pfizer series)] Future Scheduled Test 2022-12-16 65+ PNEUMOCOCCAL [facility] 12:11:42 VACCINE (2 - PCV) [code = 65+ PNEUMOCOCCAL VACCINE (2 - PCV)] Future Scheduled Test 2022-12-16 INFLUENZA VACCINE [facility] 12:11:42 [code = INFLUENZA VACCINE] Diagnostic Test 2022-11-24 glucose, fingerstick, [facility] 00:00:00 blood [code = Practice glucose, fingerstick, blood] Future Scheduled Test 2022-09-07 SHINGLES VACCINES ([address] [place] [address] 11:04:32 of 2) [code = SHINGLES VACCINES (1 of 2)] Future Scheduled Test 2022-09-07 COVID-19 VACCINE (3 [facility] 11:04:32 Booster for Pfizer series) [code = COVID-19 VACCINE (3 - Booster for Pfizer series)] Future Scheduled Test 2022-09-07 INFLUENZA VACCINE [facility] 11:04:32 [code = INFLUENZA VACCINE] Future Scheduled Test 2022-09-07 65+ PNEUMOCOCCAL [facility] 11:04:32 VACCINE (2 - PCV) [code = 65+ PNEUMOCOCCAL VACCINE (2 - PCV)] Future Scheduled Test 2022-07-13 SHINGLES VACCINES ([address] [place] [address] 16:05:49 of 2) [code = SHINGLES VACCINES (1 of 2)] Future Scheduled Test 2022-07-13 COVID-19 VACCINE ([address] [place] [address] 16:05:49 Booster for Pfizer series) [code = COVID-19 VACCINE (3 - Booster for Pfizer series)] Future Scheduled Test 2022-07-13 INFLUENZA VACCINE [facility] 16:05:49 [code = INFLUENZA VACCINE] Future Scheduled Test 2022-07-13 65+ PNEUMOCOCCAL [facility] 16:05:49 VACCINE (2 - PCV) [code = 65+ PNEUMOCOCCAL VACCINE (2 - PCV)] Future Scheduled Test 2022-06-[address] [facility] 00:00:00 (12+) [code = Medical Center DEPRESSION SCREENING (12+)] Future Scheduled Test 2022-06-[address]EN[address] [facility] 00:00:00 [code = FALLS RISK Medical C enter SCREENING] Future Scheduled Test 2022-06-18 Medicare IPPE [facility] 00:[facility] (WELCOME TO MEDICARE) Medica l Center [code = Medicare IPPE (WELCOME TO MEDICARE)] Future Scheduled Test 2022-06-[address] [facility] 00:00:00 (12+) [code = Medical Center DEPRESSION SCREENING (12+)] Future Scheduled Test 2022-06-[address]CRE[facility] [facility] 00:00:00 [code = FALLS RISK Medical C enter SCREENING] Future Scheduled Test 2022-06-18 Medicare IPPE [facility] 00:00:00 (WELCOME TO MEDICARE) Medica l Center [code = Medicare IPPE (WELCOME TO MEDICARE)] Future Scheduled Test 2022-06-[address] [facility] 00:00:00 (12+) [code = Medical Center DEPRESSION SCREENING (12+)] Future Scheduled Test 2022-06-[address] [facility] 00:00:00 [code = FALLS RISK Medical C enter SCREENING] Future Scheduled Test 2022-06-18 Medicare IPPE [facility] 00:00:00 (WELCOME TO MEDICARE) Medica l Center [code = Medicare IPPE (WELCOME TO MEDICARE)] Future Scheduled Test 2022-06-[address] [facility] 00:00:00 (12+) [code = Medical Center DEPRESSION SCREENING (12+)] Future Scheduled Test 2022-06-[address] [facility] 00:00:00 [code = FALLS RISK Medical C enter SCREENING] Future Scheduled Test 2022-06-18 Medicare IPPE [facility] 00:00:00 (WELCOME TO MEDICARE) [facility] l Center [code = Medicare IPPE (WELCOME TO MEDICARE)] Future Scheduled Test 2022-06-[address] [facility] 00:00:00 (12+) [code = Medical Center DEPRESSION SCREENING (12+)] Future Scheduled Test 2022-06-18 [address]CREEN[address] [facility] 00:00:00 [code = FALLS RISK Medical C enter SCREENING] Future Scheduled Test 2022-06-18 Medicare IPPE [facility] 00:00:00 (WELCOME TO MEDICARE) Medica l Center [code = Medicare IPPE (WELCOME TO MEDICARE)] Future Scheduled Test 2022-06-[address] [facility] 00:00:00 (12+) [code = Medical Center DEPRESSION SCREENING (12+)] Future Scheduled Test 2022-06-[address]CREENING [facility] 00:00:00 [code = FALLS RISK Medical C enter SCREENING] Future Scheduled Test 2022-06-18 Medicare IPPE [facility] 00:00:00 (WELCOME TO MEDICARE) Medica l Center [code = Medicare IPPE (WELCOME TO MEDICARE)] Future Scheduled Test 2022-06-[address] [facility] 00:00:00 (12+) [code = Medical Center DEPRESSION SCREENING (12+)] Future Scheduled Test 2022-06-18 [address]CREENING [facility] 00:00:00 [code = FALLS RISK Medical C enter SCREENING] Future Scheduled Test 2022-06-18 Medicare IPPE [facility] 00:00:00 (WELCOME TO MEDICARE) Medica l Center [code = Medicare IPPE (WELCOME TO MEDICARE)] Future Scheduled Test 2021-05-20 COVID-19 VACCINE (4 - [facility] 00:00:00 Booster for Pfizer Medical C enter series) [code = COVID-19 VACCINE (4 - Booster for Pfizer series)] Future Scheduled Test 2021-05-20 COVID-19 VACCINE (4 - [facility] 00:00:00 Booster for Pfizer Medical C enter series) [code = COVID-19 VACCINE (4 - Booster for Pfizer series)] Future Scheduled Test 2021-05-20 COVID-19 VACCINE (4 - [facility] 00:00:00 Booster for Pfizer Medical C enter series) [code = COVID-19 VACCINE (4 - Booster for Pfizer series)] Future Scheduled Test 2021-05-20 COVID-19 VACCINE (4 - [facility] 00:00:00 Booster for Pfizer Medical C enter series) [code = COVID-19 VACCINE (4 - Booster for Pfizer series)] Future Scheduled Test 2021-05-20 COVID-19 VACCINE (4 - [facility] 00:00:00 Booster for Pfizer Medical C enter series) [code = COVID-19 VACCINE (4 - Booster for Pfizer series)] Future Scheduled Test 2021-05-20 COVID-19 VACCINE (4 - [facility] 00:00:00 Pfizer series) [code Medical Center = COVID-19 VACCINE (4 - Pfizer series)] Future Scheduled Test 2021-05-20 COVID-19 VACCINE (4 - [facility] 00:00:00 Pfizer series) [code Medical Center = COVID-19 VACCINE (4 - Pfizer series)] Future Scheduled Test 1991-12-13 SHINGLES VACCINES ([address] [facility] 00:00:00 of 2) [code = Medical Center SHINGLES VACCINES (1 of 2)] Future Scheduled Test 1991-12-13 SHINGLES VACCINES ([address] [facility] 00:00:00 of 2) [code = Medical Center SHINGLES VACCINES (1 of 2)] Future Scheduled Test 1991-12-13 SHINGLES VACCINES ([address] [facility] 00:00:00 of 2) [code = Medical Center SHINGLES VACCINES (1 of 2)] Future Scheduled Test 1991-12-13 SHINGLES VACCINES ([address] [facility] 00:00:00 of 2) [code = [facility] SHINGLES VACCINES (1 of 2)] Future Scheduled Test 1991-12-13 SHINGLES VACCINES ([address] [facility] 00:00:00 of 2) [code = [facility] SHINGLES VACCINES (1 of 2)] Future Scheduled Test 1991-12-13 SHINGLES VACCINES ([address] [facility] 00:00:00 of 2) [code = Medical Center SHINGLES VACCINES (1 of 2)] Future Scheduled Test 1991-12-13 SHINGLES VACCINES ([address] [facility] 00:00:00 of 2) [code = [facility] SHINGLES VACCINES (1 of 2)] Future Scheduled Test 1960 DTAP/TDAP/TD VACCINES [facility] 00:00:00 (1 - Tdap) [code = Medical C enter DTAP/TDAP/TD VACCINES (1 - Tdap)] Future Scheduled Test 1960 DTAP/TDAP/TD VACCINES [facility] 00:00:00 (1 - Tdap) [code = Medical C enter DTAP/TDAP/TD VACCINES (1 - Tdap)] Future Scheduled Test 1960 DTAP/TDAP/TD VACCINES [facility] 00:00:00 (1 - Tdap) [code = Medical C enter DTAP/TDAP/TD VACCINES (1 - Tdap)] Future Scheduled Test 1960 DTAP/TDAP/TD VACCINES [facility] 00:00:00 (1 - Tdap) [code = Medical C enter DTAP/TDAP/TD VACCINES (1 - Tdap)] Future Scheduled Test 1960 DTAP/TDAP/TD VACCINES [facility] 00:00:00 (1 - Tdap) [code = Medical C enter DTAP/TDAP/TD VACCINES (1 - Tdap)] Future Scheduled Test 1960 DTAP/TDAP/TD VACCINES [facility] 00:00:00 (1 - Tdap) [code = Medical C enter DTAP/TDAP/TD VACCINES (1 - Tdap)] Future Scheduled Test 1960 DTAP/TDAP/TD VACCINES [facility] 00:00:00 (1 - Tdap) [code = Medical C enter DTAP/TDAP/TD VACCINES (1 - Tdap)] Future Scheduled Test 1951-12-13 DIABETIC EYE EXAM [facility] 00:00:00 [code = DIABETIC EYE Medical Center EXAM] Future Scheduled Test 1951-12-13 Diabetic foot [facility] 00:[facility]:00 examination Medical Center (regime/therapy) [code = 668855506] Future Scheduled Test 1951-12-13 Urine screening for [facility] 00:00:00 protein (procedure) Medical Center [code = 960405736] Future Scheduled Test 1951-12-13 DIABETIC EYE EXAM [facility] 00:00:00 [code = DIABETIC EYE Medical Center EXAM] Future Scheduled Test 1951-12-13 Diabetic foot [facility] 00:[facility]:00 examination Medical Center (regime/therapy) [code = 449626205] Future Scheduled Test 1951-12-13 Urine screening for [facility] 00:00:00 protein (procedure) Medical Center [code = 436676738] Future Scheduled Test 1951-12-13 DIABETIC EYE EXAM [facility] 00:00:00 [code = DIABETIC EYE Medical Center EXAM] Future Scheduled Test 1951-12-13 Diabetic foot [facility] 00:[facility]:00 examination Medical Center (regime/therapy) [code = 871468700] Future Scheduled Test 1951-12-13 Urine screening for [facility] 00:00:00 protein (procedure) Medical Center [code = 252840174] Future Scheduled Test 1951-12-13 DIABETIC EYE EXAM [facility] 00:00:00 [code = DIABETIC EYE Medical Center EXAM] Future Scheduled Test 1951-12-13 Diabetic foot [facility] 00:00:00 examination Medical Center (regime/therapy) [code = 327523259] Future Scheduled Test 1951-12-13 Urine screening for [facility] 00:00:00 protein (procedure) Medical Center [code = 852613096] Future Scheduled Test 1951-12-13 DIABETIC EYE EXAM [facility] 00:00:00 [code = DIABETIC EYE Medical Center EXAM] Future Scheduled Test 1951-12-13 Diabetic foot [facility] 00:00:00 examination Medical Center (regime/therapy) [code = 809587554] Future Scheduled Test 1951-12-13 Urine screening for [facility] 00:00:00 protein (procedure) Medical Center [code = 141410196] Future Scheduled Test 1951-12-13 DIABETIC EYE EXAM [facility] 00:00:00 [code = DIABETIC EYE Medical Center EXAM] Future Scheduled Test 1951-12-13 Diabetic foot [facility] 00:00:00 examination Medical Center (regime/therapy) [code = 396763276] Future Scheduled Test 1951-12-13 Urine screening for [facility] 00:00:00 protein (procedure) Medical Center [code = 327705620] Future Scheduled Test 1951-12-13 DIABETIC EYE EXAM [facility] 00:00:00 [code = DIABETIC EYE Medical Center EXAM] Future Scheduled Test 1951-12-13 Diabetic foot [facility] 00:00:00 examination Medical Center (regime/therapy) [code = 865817323] Future Scheduled Test 1951-12-13 Urine screening for [facility] 00:00:00 protein (procedure) Medical Center [code = 066555104] Future Scheduled Test 1947-12-13 PNEUMOCOCCAL 65+ YRS [facility] 00:00:00 (1 - PCV) [code = Medical Ce nter PNEUMOCOCCAL 65+ YRS (1 - PCV)] Future Scheduled Test 1947-12-13 PNEUMOCOCCAL 65+ Y[facility] 00:00:00 (1 - PCV) [code = Medical Ce nter PNEUMOCOCCAL 65+ YRS (1 - PCV)] Future Scheduled Test 1947-12-13 PNEUMOCOCCAL 65+ YRS [facility] 00:00:00 (1 - PCV) [code = Medical Ce nter PNEUMOCOCCAL 65+ YRS (1 - PCV)] Future Scheduled Test 1947-12-13 PNEUMOCOCCAL 65+ YRS [facility] 00:00:00 (1 - PCV) [code = Medical Ce nter PNEUMOCOCCAL 65+ YRS (1 - PCV)] Future Scheduled Test 1947-12-13 PNEUMOCOCCAL 65+ YRS [facility] 00:00:00 (1 - PCV) [code = Medical Ce nter PNEUMOCOCCAL 65+ YRS (1 - PCV)] Future Scheduled Test 1947-12-13 PNEUMOCOCCAL 65+ YRS [facility] 00:00:00 (1 - PCV) [code = Medical Ce nter PNEUMOCOCCAL 65+ YRS (1 - PCV)] Future Scheduled Test 1947-12-13 PNEUMOCOCCAL 65+ YRS [facility] 00:00:00 (1 - PCV) [code = Medical Ce nter PNEUMOCOCCAL 65+ YRS (1 - PCV)] Future Scheduled Test 1941 DXA SCAN [code = DXA [facility] 00:00:00 SCAN] [facility] Future Scheduled Test 1941 DXA SCAN [code = DXA [facility] 00:00:00 SCAN] [facility] Future Scheduled Test 1941 DXA SCAN [code = DXA [facility] 00:00:00 SCAN] [facility] Future Scheduled Test 1941 DXA SCAN [code = DXA [facility] 00:00:00 SCAN] [facility] Future Scheduled Test 1941 DXA SCAN [code = DXA [facility] 00:00:00 SCAN] [facility] Future Scheduled Test 1941 DXA SCAN [code = DXA [facility] 00:00:00 SCAN] [facility] Future Scheduled Test 1941 DXA SCAN [code = DXA [facility] 00:00:00 SCAN] [facility] Future Appointment 2023-05-26 Santi Patton [facility] 00:00:[address]; Practice [address], [place] [address] Future Appointment 2023-05-25 Santi Patton [facility] 10:45:[address]; Practice [address], [place] [address] Instructions [facility] Encounters Start End Encounter Admission Attending Care Care Encounter Source Date/Time Date/Time Type Type Clinicians Facility Department ID 2023-03-21 Inpatient OSVALDO PRO [facility] [id number] [facility] 12:15:01 [place] 2023-03-21 Inpatient RAMIRO MAYORGA [facility]an[facility] [id number] [facility] 12:14:45 [place] 2023-03-20 Inpatient RAMIRO LOPEZ [facility] [id number] [facility] 14:14:30 WM 2023-03-20 Inpatient RAMIRO LOPEZ [facility] [id number] [facility] 11:20:01 WM 2023-03-20 Inpatient RAMIRO SEGOVIA [facility] [id number] [facility] 09:11:54 ASIA 2023-03-20 Inpatient RAMIRO LOPEZ [facility] [id number] [facility]H 00:00:00 WM 2023-03-19 Inpatient RAMIRO LOPEZ [facility] [id number] [facility] 18:15:15 WM 2023-03-19 Inpatient RAMIRO MAYORGA [facility] [id number] [facility] 17:00:05 CAR[place]INA 2023-03-19 Inpatient RAMIRO LOPEZ SLEVanessa [facility] [id number] [facility] 14:28:29 WM 2023-03-05 Inpatient GRETA ValdesTO DAYS [id number] [facility] 16:17:[address] [place] [address] [facility] 2022-11-21 Outpatient [facility] [id number] [place] 11:59:[address] [place] [address] 2020-10-23 Outpatient ISMA [facility] [id number] [place] 03:35:09 [facility] 2023-05-04 2023-05-04 Norma MERRILL [place] - Ortho [id number] [place] 00:00:00 00:00:00 Laura Espinoza MD: [id number] FOG_Telemed dic [facility] [address] , Ph. 2023-05-02 2023-05-02 Outpatient MACARIO Franks RADI [id number] [facility] 10:31:00 10:31:00 [facility]a [facility] 2023-04-30 2023-04-30 Outpatient FOG_Mehlhof AOSM AOSM 623 6- [place] 00:00:00 00:00:00 Mary [id number] Orth [facility] 2023-04-30 2023-04-30 Outpatient FOG_Mehlhof AOSM AOSM 623 6 [place] 00:00:00 00:00:00 Mary [id number] Orth [facility] 2023-04-30 2023-04-30 Norma Martinez [facility] [place] - Ortho [id number] [place] 00:00:00 00:00:00 Laura Espinoza MD: [id number] FOG_Ofc dic [facility], [place] [address] , Ph. [phone] 2023-04-25 2023-04-25 Orders [place], 1.2.840.1 [id number] Methodi 00:00:00 00:00:00 Only Lora Yee [address]124.1.[address] 3.430.2.7 Hospit a .3.928318 l .8 2023-04-25 2023-04-25 Refill [place], 1.2.840.1 [id number] 4700 Methodi 00:00:00 00:00:[address] 3.430.2.7 Hospit a .3.627967 l .8 2023-04-25 2023-04-25 Orders [place], 1.2.840.1 [id number] 7336 Methodi 00:00:00 00:00:00 Only Lora Yee 71163.1.[address] 3.430.2.7 Hospit a .3.463316 l .8 2023-04-25 2023-04-25 Refill [place], 1.2.840.1 [id number] 0770 Methodi 00:00:00 00:00:[address] 3.430.2.7 Hospit a .3.915070 l .8 2023-04-18 2023-04-18 Outpatient GC_GCBZW_Ka PRIV PRIV 276 [id number] [facility] 00:00:00 00:00:00 diyala_S [id number] Medic al 2023-04-13 2023-04-13 Refill [place], 1.2.840.1 [id number] 4704 Methodi 00:00:00 00:00:[address] 3.430.2.7 Hospit a .3.255150 l .8 2023-04-13 2023-04-13 Refill [place], 1.2.840.1 [id number] 3947 Methodi 00:00:00 00:00:[address] 3.430.2.7 Hospit a .3.923369 l .8 2023-03-28 2023-03-[address] [facility] [id number] Univers 00:00:00 00:00:00 [facility] 2023-03-18 2023-03-27 Inpatient ER DANIEL [facility] Surgery [id number] SLE 22:31:00 17:55:00 [facility] 2023-03-18 2023-03-27 Hospital ER Wm Lopez Alex [facility] [id number] [facility] 22:31:00 17:55:00 [facility] 2023-03-[address] [facility] [id number] SLE 12:50:19 12:50:19 [facility] 2023-03-22 2023-03-[address] [facility] [id number] SLE 13:27:12 13:27:12 CAR[place] 2023-03-22 2023-03-22 Anesthesia Riley Morton [facility] [id number] [facility] 07:26:00 12:01:00 Event Kallina, [facility] 2023-03-22 2023-03-22 Surgery Pallimichael, [facility] [id number] 07:30:00 10:35:00 [facility] 2023-03-21 2023-03-[address] [facility] [id number] SLE 00:00:00 00:00:00 CAROLINA 2023-03-20 2023-03-20 Outpatient EL LUCA, [facility] [id number] SLE 10:41:50 10:41:50 ASIA 2023-03-19 2023-03-19 [facility] Jessica, [facility] [id number] [facility] [address] 15:35:00 15:35:00 Encounter [facility] 2023-03-19 2023-03-[address] [facility] [id number] [address] [place] [address] 00:00:00 00:00:00 WM 2023-02-23 2023-02-23 Outpatient FOG_Mehlhof AOSM AOSM 623 6 [place] 00:00:00 00:00:00 Mary [id number] [facility] 2023-02-20 2023-02-20 Outpatient FOG_Mehlhof AOSM AOSM [id number] [place] 00:00:00 00:00:00 Mary [id number] Orth ope dic Sports Medicin e 2023-02-12 2023-02-12 Outpatient FOG_Mehlhof AOSM AOSM 623 6 [place] 00:00:00 00:00:00 Mary 294260 Orth ope dic Sports Medicin e 2023-02-12 2023-02-12 Outpatient FOG_Mehlhof AOSM AOSM 623 [id number] [place] 00:00:00 00:00:00 Mary 315553 Orth ope dic Sports Medicin e 2023-02-12 2023-02-12 Outpatient FOG_Mehlhof AOSM AOSM 623 6 [place] 00:00:00 00:00:00 Mary 213915 Orth ope dic Sports Medicin e 2023-02-12 2023-02-12 Outpatient FOG_Mehlhof AOSM AOSM 623 [id number] [place] 00:00:00 00:00:00 peggyYohana 289231 Orth ope dic Sports Medicin e 2023-01-17 2023-01-17 Outpatient FOG_Mehlhof AOSM AOSM 623 2176-20 [place] 00:00:00 00:00:00 Mary [id number] Orth ope dic Sports Medicin e 2023-01-17 2023-01-17 Outpatient FOG_Mehlhof AOSM AOSM 623 [id number] [place] 00:00:00 00:00:00 peggyYohana 013689 Orth ope dic Sports Medicin e 2022-12-13 2022-12-13 Procedure Frank, 1.2.840.1 [id number] 2100 [id number] Methodi 15:15:00 16:47:44 visit Alex 78407.1.[address] [facility] 3.430.2.7 Hospit a .3.927404 l .8 2022-12-13 2022-12-13 Procedure Frank, 1.2.840.1 [id number] 2100 [id number] Methodi 15:15:00 16:47:44 visit Alex 24519.1.[address] [facility] 3.430.2.7 Hospit a .3.645346 l .8 2022-11-24 2022-11-24 Outpatient Daniel_T VFP VFP [id number] [address] [place] [address] 00:00:00 00:00:00 [id number] Family Practic e 2022-11-24 2022-11-24 Outpatient Daniel_T VFP VFP [id number] [address] [place] [address] 00:00:00 00:00:00 [id number] Family Practic e 2022-11-24 2022-11-24 [place] VFP [place] - [id number] V illage 00:00:00 00:00:00 [facility] Family SheldonCharity - Matteo yousif MD: [id number] [place] - e [facility], [address], [place] [address] , Ph. 2022-10-25 2022-10-25 Outpatient Daniel_T VFP P [id number] 20 [facility] 00:00:00 00:00:00 [id number] Family Practic e 2022-10-25 2022-10-25 Outpatient Nicolasel_T VFP P [id number] [address] [place] [address] 00:00:00 00:00:00 [id number] Family Practic e 2022-09-26 2022-09-26 Orders Provider, 1.2.840.1 [id number] 2099 045041 Methodi 00:00:00 00:00:00 [place] [address].1.[address] System 3.430.2.7 Hospit a .3.346063 l .8 2022-09-26 2022-09-26 Telephone Fidencio, 1.2.840.1 [id number] Methodi 00:00:00 00:00:[address] 3.430.2.7 Hospit a .3.177957 l .8 2022-09-26 2022-09-26 Telephone Fidencio, 1.2.840.1 [id number] Methodi 00:00:00 00:00:[address] 3.430.2.7 Hospit a .3.072402 l .8 2022-09-26 2022-09-26 Orders Provider, 1.2.840.1 [id number] 2099 229936 Methodi 00:00:00 00:00:00 [place] [address].1.[address] System 3.430.2.7 Hospit a .3.148278 l .8 2022-09-20 2022-09-20 Outpatient FOG_[place] AOSM AOSM 623 2176-20 [place]lin 00:00:00 00:00:00 _Gato [id number] [facility] 2022-09-20 2022-09-20 Outpatient FOG_[place] AOSM AOSM 623 2176-20 Arlin 00:00:00 00:00:00 _Gato 481309 Orth ope dic Sports Medicin e 2022-09-18 2022-09-18 Outpatient FOG_Elkousy AOSM AOSM 623 2176-20 [place] 00:00:00 00:00:00 _Gato 265607 Orth ope dic Sports Medicin e 2022-09-18 2022-09-18 Vaibhav A AOSM [place] - Ortho [id number] 403 [place] 00:00:00 00:00:00 Laura Tello MD: 7401 FOG_Ofc dic [facility] Spo [place]ts [place], [place] [address] , Ph. [phone] 2022-09-06 2022-09-06 Telephone Fidencio 1.2.840.1 [id number] Methodi 00:00:00 00:00:[address] 3.430.2.7 Hospit a .3.406472 l .8 2022-09-06 2022-09-06 Giovanna Nicolas 1.2.840.1 [id number] 21 [id number] Methodi 00:00:00 00:00:[address] 3.430.2.7 Hospit a .3.549454 l .8 2022-08-28 2022-08-28 Orders Doctor NORMA 1.2.840.114 [id number] 106 Univers 00:00:00 00:00:00 Only Unassigned, GLEN 350.1.13.10 ity of [place] [facility] 4.2.7.2.686 Kwame as [id number] [place] [address] [place] 2022-08-24 2022-08-24 Outpatient FOG_Elkousy AOSM AOSM 623 2176-20 [place] 00:00:00 00:00:00 _Gato 783368 Orth ope dic Sports Medicin e 2022-08-22 2022-08-22 Outpatient Daniel_T VFP VFP [id number] 20 [facility] 00:00:00 00:00:00 [id number] Family Practic e 2022-08-22 2022-08-22 Outpatient Daniel_T VFP VFP [id number] 4-20 [facility] 00:00:00 00:00:00 [id number] Family Practic e 2022-08-22 2022-08-22 Outpatient VFP VFP [id number] -20 [facility] 00:00:00 00:00:00 [id number] Family Schuyler e 2022-08-22 2022-08-22 [place] VFP [place] - [id number] V illage 00:00:00 00:00:00 [facility] Family Pito, Charity - Practi nica WARD: [address] [place] - e Shadow VM_HOU_Shad [place] [address], [place] [address] , Ph. 2022-08-21 2022-08-21 Telephone Moni [facility] 1.2.840.114 10 [id number] [facility] 00:00:00 00:00:00 [facility] 350.1.13.10 it y of [place] 4.2.7.2.686 Kwame as KRISH?BLEA [id number] [address] MEDICAL OFFICE [facility] 2022-08-04 2022-08-04 Office [facility] 1.2.524.790 3319 39610 Univers 10:00:00 10:21:24 Visit [facility] 350.1.13.10 it y of [place] 4.2.7.2.686 Kwame as KRISH?BLEA [phone] [address] OFFICE [facility] 2022-08-04 2022-08-[address] [facility] [id number] Univers 10:00:00 10:21:24 CHUCHO ity [facility] 2022-08-04 2022-08-04 Orders Doctor NORMA 1.2.840.114 [id number] 619 Univers 00:00:00 00:00:00 Only Unassigned, GLEN 350.1.13.10 ity of [place] [facility] 4.2.7.2.686 Kwame as [id number] [address] 2022-07-29 2022-07-29 Outpatient FOG_Elkousy AOSM AOSM 623 2176-20 [place] 00:00:00 00:00:00 _Husse_ 417618 Orth ope dic Sports Medicin e 2022-07-25 2022-07-25 Orders Doctor NORMA 1.2.840.114 [id number] 631 Univers 00:00:00 00:00:00 Only Unassigned, GLEN 350.1.13.10 ity of [place] [facility] 4.2.7.2.686 Kwame as [phone] [address] 2022-07-20 2022-07-20 Refill [place], 1.2.840.1 [id number] 797747 9314 Methodi 00:00:00 00:00:[address] 3.430.2.7 Hospit a .3.964206 l .8 2022-07-20 2022-07-20 Refill [place], 1.2.840.1 [id number] [id number] 6354 Methodi 00:00:00 00:00:[address] 3.430.2.7 Hospit a .3.040906 l .8 2022-07-13 2022-07-13 Outpatient R CHUCHO MONTENEGRO [facility] [id number] Univers 00:00:00 00:00:00 CHUCHO MONTENEGRO [facility] 2022-07-05 2022-07-05 Refill [place], 1.2.840.1 [id number] 297772 4116 Methodi 00:00:00 00:00:[address] 3.430.2.7 Hospit a .3.651393 l .8 2022-07-05 2022-07-05 Refill [place], 1.2.840.1 [id number] 712576 3727 Methodi 00:00:00 00:00:[address] 3.430.2.7 Hospit a .3.323847 l .8 2022-06-11 2022-06-11 Refill [place], 1.2.840.1 [id number] 916690 4348 Methodi 00:00:00 00:00:[address] 3.430.2.7 Hospit a .3.572281 l .8 2022-06-11 2022-06-11 Refill [place], 1.2.840.1 [id number] 172906 9876 Methodi 00:00:00 00:00:[address] 3.430.2.7 Hospit a .3.567580 l .8 2022-05-23 2022-05-23 Outpatient Daniel_T VFP VFP [id number] [address] [place] [address] 00:00:00 00:00:00 [id number] Family Practic e 2022-05-23 2022-05-23 Outpatient Daniramiro_T VFP VFP [id number] [address] [place] [address] 00:00:00 00:00:00 [id number] Family Practic e 2022-05-23 2022-05-23 [place] VFP [place] - [id number] V illage 00:00:00 00:00:00 [facility] Pito Medical - Practi nica WARD: 76588 [place] - e Shadow _HOU_[facility], [address], [place] [address] , Ph. 2022-05-09 2022-05-09 Orders [place], 1.2.840.1 [id number] 760870 0555 Methodi 00:00:00 00:00:00 Only Lora Yee 67250.1.[address] 3.430.2.7 Hospit a .3.007733 l .8 2022-05-09 2022-05-09 Orders [place], 1.2.840.1 [id number] [id number] 1488 Methodi 00:00:00 00:00:00 Only Lora Yee 56127.1.[address] 3.430.2.7 Hospit a .3.806903 l .8 2022-05-07 2022-05-07 Refill [place], 1.2.840.1 [id number] 366483 4021 Methodi 00:00:00 00:00:[address] 3.430.2.7 Hospit a .3.910119 l .8 2022-05-07 2022-05-07 Refill [place], 1.2.840.1 [id number] 266463 5640 Methodi 00:00:00 00:00:[address] 3.430.2.7 Hospit a .3.343391 l .8 2022-04-17 2022-04-17 Outpatient Daniel_T VFP VFP [id number] [address] [place] [address] 00:00:00 00:00:00 [id number] Family Schuyler e 2022-04-17 2022-04-17 [place] VFP [place] - [id number] V illage 00:00:00 00:00:00 [facility] Family Sheldon, Medical - Practi nica WARD: 76677 [place] - e Shadow _U_[facility], [address], [place] [address] , Ph. 2022-04-14 2022-04-14 Outpatient Daniel_T VFP VFP [id number] [address] [place] [address] 00:00:00 00:00:00 [id number] Family Schuyler e 2022-04-10 2022-04-10 Orders [place], 1.2.840.1 [id number] 4204 Methodi 00:00:00 00:00:00 Only Lora Yee 53876.1.[address] 3.430.2.7 Hospit a .3.440497 l .8 2022-04-09 2022-04-09 Refill [place], 1.2.840.1 [id number] 591169 8532 Methodi 00:00:00 00:00:[address] 3.430.2.7 Hospit a .3.987530 l .8 2022-03-09 2022-03-09 Outpatient [facility] 623 2176-20 [place] 00:00:00 00:00:00 _Gato 599523 Orth ope dic Sports Medicin e 2022-03-09 2022-03-09 Mufaddal M AOSM [place] - Ortho 2021 00:00:00 00:00:00 Laura Andrews MD: 7401 FOG_Ofc dic [facility] Spo [place]ts [place], [place] [address] , Ph. [phone] 2022-03-06 2022-03-06 Outpatient FOG_Elkousy AOSM AO 623 6- [place] 00:00:00 00:00:00 _Gato 233932 Orth ope dic Sports Medicin e 2022-02-16 2022-02-16 Outpatient Daniel_T VFP VFP [id number] [address] [place] [address] 00:00:00 00:00:00 [id number] Family Practic e 2022-02-16 2022-02-16 Outpatient VFP VFP [id number] [address] 00:00:00 00:00:00 [id number] Family Practic e 2022-02-16 2022-02-16 Outpatient VFP VFP [id number] [address] 00:00:00 00:00:00 [id number] Family Practic e 2022-02-06 2022-02-06 Outpatient Daniel_T VFP VFP [id number] [address] [place] [address] 00:00:00 00:00:00 936138 Family Practic e 2022-02-01 2022-02-01 Outpatient Daniel_T VFP VFP [id number] [address] [place] [address] 00:00:00 00:00:00 653404 Family Practic e 2022-02-01 2022-02-01 [place] VFP [place] - [id number] V illage 00:00:00 00:00:00 [facility] Charity Sheldon - Pracedin yousif MD: 65559 VM_HOU_Roly e [place] ow [place] [facility], [address], [place] [address] , Ph. 2022-01-25 2022-01-25 Outpatient Daniel_T VFP VFP [id number] [address] [place] [address] 00:00:00 00:00:00 [id number] Family Practic e 2022-01-04 2022-01-04 Outpatient Daniel_T VFP VFP [id number] [address] [place] [address] 00:00:00 00:00:00 776224 Family Practic e 2021-12-29 2021-12-29 Outpatient FOG_Elkousy AOSM AOSM 623 2176-20 [place] 02:36:00 02:36:00 _Gato 203371 Orth ope dic Sports Medicin e 2021-12-29 2021-12-29 Roger Burk AOSM [place] - Ortho [id number] 14 [place] 00:00:00 00:00:00 MD Jewel: [place] - Orthope [address] FOG_Ofc dic [facility], [place] [address] , Ph. [phone] 2021-12-29 2021-12-29 Outpatient GARFIELD Holloway AOSM [id number] 4-0 00:00:00 00:00:00 Rafidonna Wm [id number] 2021-12-24 2021-12-24 Outpatient FOG_Elkousy AOSM AOSM 623 2176-20 [place] 02:19:00 02:19:00 _Gato 816097 Orth ope dic Sports Medicin e 2021-12-24 2021-12-24 Outpatient FOG_Elkousy AOSM AOSM 623 2176-20 [place] 02:19:00 02:19:00 _Gato 875822 Orth ope dic Sports Medicin e 2021-12-23 2021-12-23 Outpatient Pito_T VFP P [id number] 4-20 [facility] 10:31:00 10:31:00 [id number] Family Practic e 2021-12-23 2021-12-23 [place] VFP [place] - [id number] V illage 00:00:00 00:00:00 [facility] Family PitoCharity - Pracedin yousif MD: 12658 VM_JUAN M_Roly e Shadow [facility] [place] [facility], [address], [place] [address] , Ph. 2021-12-16 2021-12-16 Outpatient RAMIRO Castaneda HCATO PAIN [id number] [facility] 10:15:00 10:15:00 Phillip 06 [place] [facility] 2021-11-28 2021-11-28 Office MAGDALENA Wheeler 6400 1.2.516.357 6939 [address]8945 [place] 10:30:00 10:50:33 Visit Joby GOLDBERG 350.1.13.58 [place] [address].2.7.2.686 [id number] 5 2021-11-28 2021-11-28 Outpatient FOG_Elkousy AOSM AOSM 623 [place] 04:52:00 04:52:00 _Gato 767304 Orth ope dic Sports Medicin e 2021-11-24 2021-11-24 Outpatient FOG_Elkousy AOSM AOSM 623 [place] 11:55:00 11:55:00 _Gato 440821 Orth ope dic Sports Medicin e 2021-11-23 2021-11-23 Outpatient FOG_Elkousy AOSM AOSM 623 [place] 01:50:00 01:50:00 _Gato 749418 Orth ope dic Sports Medicin e 2021-11-23 2021-11-23 Telephone Whitley Bryson [facility] 1.2.840. 114 [id number] [place] 00:00:00 00:00:00 Whitley Bryson PAGE 350.1.13.58 [facility] 9.2.7.2.686 [facility] [id number] 2 2021-11-23 2021-11-23 Roger MERRILL [place] - Ortho [place] 00:00:00 00:00:00 MD Jewel: Laura Maravilla - Orthope [address] [place] FOG_Ofc dic [employer] [place] [address], [place] [address] , Ph. [phone] 2021-11-23 2021-11-23 Outpatient GARFIELD Holloway [id number] 8-[id number] 00:00:00 00:00:00 Roger Burk [id number] 2021-11-18 2021-11-18 Outpatient FOG_[place]y AOSM AOSM 623 [facility] [place] 12:41:00 12:41:00 _Gato 904189 Orth ope dic Sports Medicin e 2021-11-18 2021-11-18 Outpatient FOG_Elkousy AOSM AOSM 623 [place] 12:41:00 12:41:00 _Gtao 750777 Orth ope dic Sports Medicin e 2021-11-17 2021-11-17 Outpatient Daniel_T VFP VFP [id number] [address] [place] [address] 06:56:00 06:56:00 [id number] Family Practic e 2021-11-07 2021-11-07 Travel 1.2.840.1 1.2.641.925 8384 228867 Methodi 00:00:00 00:00:[address] 3.430.2.7 0.2.7.3.698 Ho spita .3.378756 084.8 l .8 2021-10-19 2021-10-19 Outpatient Daniel_T VFP VFP [id number] [address] [place] [address] 06:10:00 06:10:00 [id number] Family Practic e 2021-10-04 2021-10-04 Outpatient Daniel_T VFP VFP [id number] [address] [place] [address] 03:48:00 03:48:00 [id number] Family Practic e 2021-10-04 2021-10-04 [place] VFP [place] - [id number] V illage 00:00:00 00:00:00 [facility] Family SheldonCharity - Pracedin yousif MD: 19707 ANDREIA_JUAN M_Roly e Shadow [facility], [address], [place] [address] , Ph. 2021-08-26 2021-08-26 Outpatient Daniel_T VFP VFP [id number] [address] [place] [address] 08:52:00 08:52:00 [id number] Family Practic e 2021-08-09 2021-08-09 Outpatient Daniel_T VFP VFP [id number] [address] [place] [address] 12:16:00 12:16:00 [id number] Family Practic e 2021-08-04 2021-08-04 Outpatient Daniel_T VFP VFP [id number] [address] [place] [address] 03:46:00 03:46:00 [id number] Family Schuyler [place] 2021-08-04 2021-08-04 [place] VFP [place] - [id number] V illage 00:00:00 00:00:00 [facility]theo [facility] Family Sheldon, Charity - Matteo yousif MD: 96305 VM_HOU_Shad e [place] [facility], [address], [place] [address] , Ph. 2021-07-18 2021-07-18 Orders [place], 1.2.840.1 [id number] 5744 Methodi 00:00:00 00:00:00 Only Lora Yee 85639.1.[address] 3.430.2.7 Hospit a .3.624515 l .8 2021-07-15 2021-07-15 Refill [place], 1.2.840.1 [id number] 1716 Methodi 00:00:00 00:00:[address] 3.430.2.7 Hospit a .3.789693 l .8 2021-07-13 2021-07-13 Orders [place], 1.2.840.1 [id number] 024383 4095 Methodi 00:00:00 00:00:00 Only Lora Yee 94956.1.[address] 3.430.2.7 Hospit a .3.375017 l .8 2021-07-13 2021-07-13 Refill [place], 1.2.840.1 [id number] 884429 5701 Methodi 00:00:00 00:00:[address] 3.430.2.7 Hospit a .3.310345 l .8 2021-06-22 2021-06-22 Outpatient Pito_T VFP VFP [id number] [address] [place] [address] 02:42:00 02:42:00 [id number] Family Schuyler [place] 2021-05-23 2021-05-23 Outpatient Pito_T VFP VFP [id number] [address] [place] [address] 06:17:00 06:17:00 [id number] Family Practic e 2021-05-23 2021-05-23 Outpatient Daniel_T VFP VFP [id number] [address] [place] [address] 06:17:00 06:17:00 [id number] Family Practic e 2021-04-15 2021-04-15 Outpatient Daniel_T VFP VFP [id number] [address] [place] [address] 01:48:00 01:48:00 133405 Family Practic e 2021-04-15 2021-04-15 [place] VFP [place] - [id number] V illage 00:00:00 00:00:00 [facility] Family SheldonCharity - Pracedin yousif MD: 82873 Lizbeth [place] Shadow [facility], [address], [place] [address] , Ph. 2021-02-24 2021-02-24 Outpatient Daniel_T VFP VFP [id number] [address] [place] [address] 03:30:00 03:30:00 [id number] Family Practic e 2021-01-22 2021-01-22 Outpatient Daniel_T VFP VFP [id number] [address] [place] [address] 09:37:00 09:37:00 [id number] Family Practic e 2021-01-20 2021-01-20 Outpatient Daniel_T VFP VFP [id number] [address] [place] [address] 06:26:00 06:26:00 [id number] Family Practic e 2021-01-20 2021-01-20 [place] VFP [place] - [id number] V illage 00:00:00 00:00:00 [facility] Family SheldonCharity - Pracedin yousif MD: 73334 Lizbeth [place] Shadow ow [facility], [address], [place] [address] , Ph. 2020-11-13 2020-11-13 Outpatient Daniel_T VFP VFP [id number] [address] [place] [address] 02:42:00 02:42:00 805390 Family Practic e 2020-11-13 2020-11-13 Outpatient Daniel_T VFP VFP [id number] [address] [place] [address] 02:42:00 02:42:00 [id number] Family Practic e 2020-11-13 2020-11-13 Outpatient Daniel_T VFP VFP [id number] [address] [place] [address] 02:42:00 02:42:00 [id number] Family Practic e 2020-11-13 2020-11-13 Outpatient Daniel_T VFP VFP [id number] [address] [place] [address] 02:42:00 02:42:00 [id number] Family Practic e 2020-10-15 2020-10-15 Outpatient Daniel_T VFP VFP [id number] [address] [place] [address] 02:19:00 02:19:00 [id number] Family Practic e 2020-10-14 2020-10-14 Outpatient Daniel_T VFP VFP [id number] [address] [place] [address] 11:20:00 11:20:00 [id number] Family Practic e 2020-10-14 2020-10-14 [place] VFP [place] - [id number] V illage 00:00:00 00:00:00 [facility] Family SheldonCharity MD: 52220 Lizbeth [place] Shadow ow [place] [facility], [address], [place] [address] , Ph. 2020-07-16 2020-07-16 Outpatient Daniel_T VFP VFP [id number] [address] [place] [address] 06:12:00 06:12:00 [id number] Family Practic e 2020-07-15 2020-07-15 Outpatient [facility] [id number] [address] [place] [address] 00:00:00 00:00:[address] 2020-07-14 2020-07-14 Outpatient Daniel_T VFP VFP [id number] [address] [place] [address] 01:44:00 01:44:00 [id number] Family Practic e 2020-07-14 2020-07-14 [place] VFP [place] - [id number] V illage 00:00:00 00:00:00 [facility]theo [facility] Charity Sheldon MD: 08249 Lizbeth [place] Shadow ow [place] [facility], [address], [place] [address] , Ph. 2020-07-13 2020-07-13 Outpatient Daniel_T VFP VFP [id number] [address] [place] [address] 06:05:00 06:05:00 [id number] Family Practic e 2020-06-23 2020-06-23 Outpatient [facility] [id number] [place] 00:00:00 00:00:[address] 2020-04-30 2020-04-30 Outpatient Daniel_T VFP VFP [id number] [address] 01:32:00 01:32:00 [id number] Family Practic e 2020-04-24 2020-04-24 Outpatient Daniel_T VFP VFP [id number] [address] [place] [address] 03:48:00 03:48:00 Family Practic e 2020-04-14 2020-04-14 Outpatient Daniel_T VFP VFP [id number] [address] [place] [address] 04:51:00 04:51:00 [id number] Family Practic e 2020-04-14 2020-04-14 [place] VFP [place] - [id number] V illage 00:00:00 00:00:00 [facility] PitoCharity - Practi nica WARD: 89538 VM_HOU_Dani e [facility], [facility] [address], [place] [address] , Ph. 2020-03-15 2020-03-15 Outpatient Daniel_T VFP VFP [id number] [address] [place] [address] 10:19:00 10:19:00 [id number] Family Practic e 2020-01-26 2020-01-26 AppointMAGDALENA Ba Cardiology [id number] [place] 15:15:00 15:15:00 t; MICHAEL ASHBY, [facility] rodney RODRIGUEZ M.D. [facility] Armin [place] 2019-12-03 2019-12-03 Outpatient PETAK, [facility] [id number] [place] 00:00:00 00:00:00 LORA Floyd [facility] i [facility] 2016-06-30 2016-06-30 Outpatient MHIE MHIE [id number] [place] 13:00:00 13:00:00 09 sierra Butler 2016-04-21 2016-04-21 Outpatient MHIE MHIE [id number] Memoria 13:30:00 13:30:00 07 sierra Butler 2016-03-27 2016-03-27 Outpatient MHIE MHIE [id number] Memoria 11:30:00 11:30:00 08 sierra Butler 2016-03-09 2016-03-09 Outpatient MHIE MHIE [id number] Memoria 11:00:00 11:00:00 06 sierra Butler 2016-02-08 2016-02-15 [facility] [id number] Memoria 15:51:00 01:30:00 r Luke 00 l [facility] 2016-02-08 2016-02-14 Outpatient Whyte, Riley [facility] [id number] 10:51:00 20:30:00 Jese 2016-02-08 2016-02-08 Outpatient MHIE MHIE [id number] [place]oria 07:30:00 07:30:00 05 sierra Butler 2016-01-11 2016-01-19 [facility] [id number] 91533 Memoria 21:33:00 21:30:00 yoselin Butler 08 l [facility] 2016-01-11 2016-01-19 Outpatient Coreen [facility] [id number] 16:33:00 16:30:00 Jean Paul Quiroga 2016-01-17 2016-01-17 Outpatient MHIE MHIE [id number] Memoria 11:00:00 11:00:00 04 sierra Butler 2016-01-11 2016-01-11 [facility] 57185 75050 Memoria 04:00:00 04:00:00 r Luke 07 l [facility] 2016-01-10 2016-01-10 Outpatient Ranjit Drew [facility] [id number] 23:00:00 23:00:00 Peterson Witt 2015-12-15 2015-12-15 Outpatient MHIE MHIE [id number] Memoria 14:00:00 14:00:00 03 sierra Butler 2015-12-15 2015-12-15 Outpatient MHIE MHIE [id number] Memoria 13:30:00 13:30:00 02 sierra Butler 2015-12-15 2015-12-15 Outpatient MHIE MHIE [id number] Memoria 11:00:00 11:00:00 01 sierra Butler 2015-12-02 2015-12-02 Outpatient MHIE MHIE [id number] Memoria 11:00:00 11:00:00 00 sierra Butler 2014-03-25 2014-03-26 Outpt Diag nullFlavo [facility] [id number] Memoria 14:57:00 04:59:00 Services r Outpatient 04 l Imaging [facility] 2014-03-25 2014-03-25 Outpatient William 2.16.840. 2.16.840.1. [id number] 09:57:00 23:59:00 Keron 1.180562. 781958.3.61 04 Gabbie 3.615.0.1 5.0.884 34 1081-04-02 2013-09-18 Outpt Diag nullFlavo [facility] [id number] Memoria 16:29:00 04:59:00 Services r Outpatient [id number] l Imaging 9 [facility] 2013-09-17 2013-09-17 Outpatient William, 2.16.840. 2.16.840.1. [id number] 11:29:00 23:59:00 Keron 1.374976. 370198.3.61 03 Gabbie 3.615.0.1 5.0.683 04 2721-04-18 2012-10-06 Inpatient nullFlavo [facility] 83676 [id number] Memoria 08:38:00 12:00:00 r Medical 00 l [facility] Results Test Description Test Time Test Comments Results Result [facility] e Comments - CT PELVIS W/O 2023-05-03 CONTRAST 15:38:00 [facility] 1940 Sex: F Patient Name: AMANDA NDIAYE Unit No: [id number] EXAMS: CPT CODE: [id number] CT PELVIS W/O CONTRAST [id number] TECHNIQUE: Multiplanar CT images were obtained of the lumbar spine and pelvis without IV contrast. COMPARISON: None available. INDICATION: PAIN FINDINGS: Lumbar spine: Five lumbar type vertebrae are present. Alignment: Grade 1 spondylolisthesis of L4-L5 Osseous: Schmorl's nodes of the inferior L2 and L3 vertebral bodies are present. Extensive degenerative sclerosis is seen throughout the lumbar spine. Paraspinal Soft Tissues/ Retroperitoneum: Unremarkable. L1/2: Mild facet hypertrophy. No foraminal or central canal stenosis. L2/3: Severe disc degeneration is present with a large partially calcified disc bulge. Bilateral facet hypertrophy. The central canal is decompressed. Mild bilateral foraminal stenosis. L3/4: Severe disc degeneration is noted with a broad disc bulge asymmetric to the left. Moderate bilateral facet hypertrophy. The central canal is decompressed. There is left lateral recess stenosis as well as severe bilateral foraminal stenosis. L4/5: Grade 1 spondylolisthesis. Marked disc degeneration with a broad disc bulge. Moderate bilateral facet hypertrophy. The central canal is decompressed. There is moderate to severe left, severe right foraminal stenosis. L5/S1: Severe disc degeneration with marked height loss and partial interbody fusion. Bilateral facet hypertrophy. There is severe left, moderate right foraminal stenosis. The central canal is decompressed. Pelvis: No acute fracture is visualized. Bilateral sacroiliac joint degenerative changes are present. Degenerative changes of the pubic symphysis are also noted. There is mild bilateral hip osteoarthritis. No acute soft tissue normality. IMPRESSION: 1. 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 2. No acute findings of the pelvis. [facility] NAME: AMANDA NDIAYE [address] [facility] PHYS: [email or web address] - Norma Espinoza MD : 1940 AGE: 82 SEX: F [place], [place] [address] LOC: Y.RAD PHONE #: [phone] EXAM DATE: 05/02/2023 STATUS: DEP CLI FAX #: [phone] RAD #: [id number] D/C DT PAGE 1 Signed Report (CONTINUED) Patient Name: AMANDA NDIAYE Unit No: [id number] EXAMS: CPT CODE: [id number] CT PELVIS W/O CONTRAST 59981 (Continued) 3. Multiple chronic findings as described. at 1538 Reported and signed by: Earl Mendoza M.D. CC: Norma Espinoza MD; Phillip Castaneda MD Technologist: Cosme Argueta,RT(R) CTDI: DLP: Trnscrpt: 05/03/2023 (1538) tTONIOJ [facility] NAME: AMANDA NDIAYE [address] [facility] PHYS: HARKATLYNNickJimmy Xavier Norma Espinoza MD : 1940 AGE: 82 SEX: F [place] [address] LOC: ChayoRAD PHONE #: [phone] EXAM DATE: 05/02/2023 STATUS: DEP CLI FAX #: [phone] RAD #: [id number] D/C DT PAGE 2 Signed Report Patient Name: AMANDA NDIAYE Unit No: [id number] EXAMS: CPT CODE: [id number] CT PELVIS W/O CONTRAST 67649 (Continued) Orig Print D/T: S: 05/03/2023 (1542) [facility] NAME: AMANDA NDIAYE [address] [facility] PHYS: MANDEEP Park Norma Espinoza MD : 1940 AGE: 82 SEX: F [place] [address] LOC: YNickRAD PHONE #: [phone] EXAM DATE: 05/02/2023 STATUS: DEP CLI FAX #: [phone] RAD #: [id number] D/C DT PAGE 3 Signed Report - CT L-SPINE W/O 2023-05-03 CONTRAST 15:38:00 [facility] 1940 Sex: F Patient Name: AMANDA NDIAYE Unit No: [id number] EXAMS: CPT CODE: [id number] CT L-SPINE W/O CONTRAST 19260 TECHNIQUE: Multiplanar CT images were obtained of the lumbar spine and pelvis without IV contrast. COMPARISON: None available. INDICATION: PAIN FINDINGS: Lumbar spine: Five lumbar type vertebrae are present. Alignment: Grade 1 spondylolisthesis of L4-L5 Osseous: Schmorl's nodes of the inferior L2 and L3 vertebral bodies are present. Extensive degenerative sclerosis is seen throughout the lumbar spine. Paraspinal Soft Tissues/ Retroperitoneum: Unremarkable. L1/2: Mild facet hypertrophy. No foraminal or central canal stenosis. L2/3: Severe disc degeneration is present with a large partially calcified disc bulge. Bilateral facet hypertrophy. The central canal is decompressed. Mild bilateral foraminal stenosis. L3/4: Severe disc degeneration is noted with a broad disc bulge asymmetric to the left. Moderate bilateral facet hypertrophy. The central canal is decompressed. There is left lateral recess stenosis as well as severe bilateral foraminal stenosis. L4/5: Grade 1 spondylolisthesis. Marked disc degeneration with a broad disc bulge. Moderate bilateral facet hypertrophy. The central canal is decompressed. There is moderate to severe left, severe right foraminal stenosis. L5/S1: Severe disc degeneration with marked height loss and partial interbody fusion. Bilateral facet hypertrophy. There is severe left, moderate right foraminal stenosis. The central canal is decompressed. Pelvis: No acute fracture is visualized. Bilateral sacroiliac joint degenerative changes are present. Degenerative changes of the pubic symphysis are also noted. There is mild bilateral hip osteoarthritis. No acute soft tissue normality. IMPRESSION: 1. 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 2. No acute findings of the pelvis. [facility] NAME: AMANDA NDIAYE [address] [facility] PHYS: HARJO.04 - Norma Espinoza MD : 1940 AGE: 82 SEX: F [place] [address] LOC: Y.RAD PHONE #: [phone] EXAM DATE: 05/02/2023 STATUS: DEP CLI FAX #: [phone] RAD #: [id number] D/C DT PAGE 1 Signed Report (CONTINUED) Patient Name: AMANDA NDIAYE Unit No: [id number] EXAMS: CPT CODE: [id number] CT L-SPINE W/O CONTRAST 19908 (Continued) 3. Multiple chronic findings as described. at 1538 Reported and signed by: Earl Mendoza M.D. CC: Norma Espinoza MD; Phillip Castaneda MD Technologist: Cosme Argueta,RT(R) CTDI: DLP: Trnscrpt: 05/03/2023 (1538) FloresSLJ [facility] NAME: AMANDA NDIAYE [address] [facility] PHYS: Norma Patino MD : 1940 AGE: 82 SEX: F [place] [address] LOC: ChayoRAD PHONE #: [phone] EXAM DATE: 05/02/2023 STATUS: DEP CLI FAX #: [phone] RAD #: [id number] D/C DT PAGE 2 Signed Report Patient Name: AMANDA NDIAYE Unit No: [id number] EXAMS: CPT CODE: [id number] CT L-SPINE W/O CONTRAST 80342 (Continued) Orig Print D/T: S: 05/03/2023 (1542) [facility] NAME: AMANDA NDIAYE [address] [facility] PHYS: Norma Patino MD : 1940 AGE: 82 SEX: F [place] [address] LOC: Y.RAD PHONE #: [phone] EXAM DATE: 05/02/2023 STATUS: DEP CLI FAX #: [phone] RAD #: [id number] D/C DT PAGE 3 Signed Report MISCELLANEOUS LAB ORDER 2023-04-03 09:25:21 Test Item Value Reference Range Interpretation Comme nts SCAN RESULT (test code = 5451200) See scanned report. [place] [id number] 09:25:21Scan Orvjtn3704/03/2023 9:25 AM CD[facility]LE[facility] [id number] 09:25:21Scan Hmpwwg7904/03/2023 9:25 AM CDTSLE[facility] Rgcwm7947-45-05 09:25:21Scan Qhyyqn3204/03/2023 9:25 AM CDTSLEH [facility] Rhbms0727-52-17 09:25:21Scan Icmmlj6204/03/2023 9:25 AM CDTSLEH [facility] Fycwc3313-15-11 09:25:21Scan Sgwhlz0804/03/2023 9:25 AM CDTSLEH [facility] [id number] 09:25:21Scan Nqgkgg9504/03/2023 9:25 AM CDTSLEH [facility]AC[facility] FranciscoPO-Glucose [id number] 17:20:14 Test Item Value Reference Range Interpretation Comments POC-Glucose Meter (test 112 mg/dL 70-110 H : TE STED AT [facility] code = 1538) [address] [place] [address], 770 30: Sheriff'S Sergeant/Techni britney ID = [id number] for KELVINASINU, CHIOM A Lab Interpretation (test Abnormal code = 23361-9) [facility]-Glucose [id number] 17:20:14 Test Item Value Reference Range Interpretation Comments POC-Glucose Meter (test 112 mg/dL 70-110 H : TE STED AT [facility] code = 1538) [address] [place] [address], 770 30: Sheriff'S Sergeant/Techni britney ID = [id number] for NWAJIAKU, CHIOM A Lab Interpretation (test Abnormal code = 41463-7) [facility] [id number] 17:20:14 Test Item Value Reference Range Interpretation Comments POC-Glucose Meter (test 112 mg/dL 70-110 H : TE STED AT [facility] code = 1538) [address] [place] [address], 770 30: Sheriff'S Sergeant/Techni brintey ID = [id number] for NWAJIAKU, CHIOM A Lab Interpretation (test Abnormal code = 57175-2) [facility]-Glucose [id number] 17:20:14 Test Item Value Reference Range Interpretation Comments POC-Glucose Meter (test 112 mg/dL 70-110 H : TE STED AT [facility] code = 1538) [address] [place] [address], 770 30: Sheriff'S Sergeant/Techni britney ID = [id number] for NWAJIAKU, CHIOM A Lab Interpretation (test Abnormal code = 24450-4) [facility] [id number] 17:20:14 Test Item Value Reference Range Interpretation Comments POC-Glucose Meter (test 112 mg/dL 70-110 H : TE STED AT [facility] code = 1538) [address] [place] [address], 770 30: Sheriff'S Sergeant/Techni britney ID = [id number] for NWAJIAKU, CHIOM A Lab Interpretation (test Abnormal code = 53482-6) [facility] [id number] 17:20:14 Test Item Value Reference Range Interpretation Comments POC-Glucose Meter (test 112 mg/dL 70-110 H : TE STED AT [facility] code = 1538) [address] [place] [address], 770 30: Sheriff'S Sergeant/Techni britney ID = [id number] for NWAJIAKU, CHIOM A Lab Interpretation (test Abnormal code = 32286-1) [facility] Francisco[facility]SE [id number] 17:20:14 Test Item Value Reference Range Interpretation Comments POC-GLUCOSE METER 112 mg/dL 70-110 H : TESTED A T [facility] 6720 (BEAKER) (test code = [facility], 1538) [address]: Sheriff'S Sergeant/Techni britney ID = [id number] for NW AJLUZKU, LILIANA POCT-GLUCOSE [id number] 14:02:19 Test Item Value Reference Range Interpretation Comments POC-GLUCOSE METER 220 mg/dL 70-110 H : TESTED A T [facility] 6720 (BEAKER) (test code = [facility], 1538) 58053: Sheriff'S Sergeant/Techni britney ID = [id number] for LILIANA CAST POCT-GLUCOSE [id number] 11:50:26 Test Item Value Reference Range Interpretation Comments POC-GLUCOSE METER 277 mg/dL 70-110 H : TESTED A T [facility] 6720 (BEAKER) (test code = [facility], 1538) 26200: Sheriff'S Sergeant/Techni britney ID = [id number] for Milagros ODOM POCT-GLUCOSE [id number] 08:19:33 Test Item Value Reference Range Interpretation Comments POC-GLUCOSE METER 190 mg/dL 70-110 H : TESTED A T [facility] 67[address] (BEAKER) (test code = [facility], 1538) 625[address]: Sheriff'S Sergeant/Techni britney ID = [id number] for Milagros ODOM [id number] 05:08:33 Test Item Value Reference Range Interpretation Comments MAGNESIUM (BEAKER) (test code = 1.1 mg/dL 1.6-2.6 L 627) Sheriff'S Sergeant ID - [id number] 05:08:33 Test Item Value Reference Range Interpretation Comments PHOSPHORUS (BEAKER) (test code = 2.0 mg/dL 2.3-4.7 L 604) Sheriff'S Sergeant ID - BSCOMPREHENSIVE METABOLIC [id number] 05:08:32 Test Item Value Reference Range Interpretation Comments TOTAL PROTEIN 6.1 gm/dL 6.0-8.3 (BEAKER) (test code = 770) ALBUMIN (BEAKER) 3.4 g/dL 3.5-5.0 L (test code = 1145) ALKALINE 88 U/L 40-150 PHOSPHATASE (BEAKER) (test code = 346) BILIRUBIN TOTAL 0.8 mg/dL 0.2-1.2 (BEAKER) (test code = 377) SODIUM (BEAKER) 140 meq/L 136-145 (test code = 381) POTASSIUM (BEAKER) 4.1 meq/L 3.5-5.1 (test code = 379) CHLORIDE (BEAKER) 108 meq/L 98-107 H (test code = 382) CO2 (BEAKER) (test 24 meq/L 22-29 code = 355) BLOOD UREA 14 mg/dL 7-21 NITROGEN (BEAKER) (test code = 354) CREATININE 0.74 mg/dL 0.57-1.25 (BEAKER) (test code = 358) GLUCOSE RANDOM 174 mg/dL 70-105 H (BEAKER) (test code = 652) CALCIUM (BEAKER) 9.7 mg/dL 8.4-10.2 (test code = 697) AST (SGOT) 37 U/L 5-34 H (BEAKER) (test code = 353) ALT (SGPT) 27 U/L 6-55 (BEAKER) (test code = 347) EGFR (BEAKER) 81 Interpretatio n of eGFR (test code = 1092) mL/min/1.[address] age Description sq m Result G1 Polina l or high >=90 G2 Mildly decreased 60-89 G3a Mildl y to moderately 45-5 9 G3b Moderately to s everely 30-44 G4 Severl y decreased 15-29 G5 Kidney failure <15Reported eGF R is based on the CKD-EPI 2020 equation that d oes not use a race coefficientEsti mated GFR is not as accur ate as Creatinine Mikaela krista in predicting glom erular filtration rate . 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 ID - BSCBC (HEMOGRAM ONLY)2023-03-27 04:50:09 Test Item Value Reference Range Interpretation Comments WHITE BLOOD CELL COUNT (BEAKER) 7.1 K/ L 3.5-10.5 (test code = 775) RED BLOOD CELL COUNT (BEAKER) 4.54 M/ L 3.93-5.22 (test code = 761) HEMOGLOBIN (BEAKER) (test code = 13.0 GM/DL 11.2-15.7 410) HEMATOCRIT (BEAKER) (test code = 40.7 % 34.1-44.9 411) MEAN CORPUSCULAR VOLUME (BEAKER) 90 fL 79-95 (test code = 753) MEAN CORPUSCULAR HEMOGLOBIN 28.6 pg 25.6-32.2 (BEAKER) (test code = 751) MEAN CORPUSCULAR HEMOGLOBIN CONC 31.9 GM/DL 32.2-35.5 L (BEAKER) (test code = 752) RED CELL DISTRIBUTION WIDTH 14.7 % 11.7-14.4 H (BEAKER) (test code = 412) PLATELET COUNT (AKER) (test 211 K/CU MM 150-450 code = 756) MEAN PLATELET VOLUME (AKER) 11.1 fL 9.4-12.3 (test code = 754) NUCLEATED RED BLOOD CELLS 0 /100 WBC 0-0 (AKER) (test code = 413) POCT-GLUCOSE [id number] 01:04:55 Test Item Value Reference Range Interpretation Comments POC-GLUCOSE METER 154 mg/dL 70-110 H : TESTED A T [facility] 67[address] ([facility]) (test code = [facility], 153) [address]: Sheriff'S Sergeant/Techni britney ID = [id number] for TO ANDI VIRGENINE POCT-GLUCOSE [id number] 21:26:59 Test Item Value Reference Range Interpretation Comments POC-GLUCOSE METER 133 mg/dL 70-110 H : TESTED A T [facility] [address] ([facility]) (test code = [facility], [facility]8) [address]: Sheriff'S Sergeant/Techni britney ID = [id number] for Radha persaud, Franny POCT-GLUCOSE [id number] 18:01:59 Test Item Value Reference Range Interpretation Comments POC-GLUCOSE METER 297 mg/dL 70-110 H : TESTED A T [facility] [address] ([facility]) (test code = [facility], 1538) 91970: Sheriff'S Sergeant/Techni britney ID = [id number] for Am ador, Rafael POCT-GLUCOSE [id number] 12:05:14 Test Item Value Reference Range Interpretation Comments POC-GLUCOSE METER 273 mg/dL 70-110 H : TESTED A T [facility] 67[address] (BEAKER) (test code = [facility], 1538) 38172: Sheriff'S Sergeant/Techni britney ID = [id number] for Am ador, Rafael POCT-GLUCOSE [id number] 07:54:18 Test Item Value Reference Range Interpretation Comments POC-GLUCOSE METER 138 mg/dL 70-110 H : TESTED A T [facility] 67[address] (BEAKER) (test code = [facility] [place], 1538) 15083: Sheriff'S Sergeant/Techni britney ID = [id number] for Rafael Carrasco CBC (HEMOGRAM ONLY)2023-03-26 05:39:50 Test Item Value Reference Range Interpretation Comments WHITE BLOOD CELL COUNT (BEAKER) 6.5 K/ L 3.5-10.5 (test code = 775) RED BLOOD CELL COUNT (BEAKER) 4.12 M/ L 3.93-5.22 (test code = 761) HEMOGLOBIN (BEAKER) (test code = 11.7 GM/DL 11.2-15.7 410) HEMATOCRIT (BEAKER) (test code = 37.2 % 34.1-44.9 411) MEAN CORPUSCULAR VOLUME (BEAKER) 90 fL 79-95 (test code = 753) MEAN CORPUSCULAR HEMOGLOBIN 28.4 pg 25.6-32.2 (BEAKER) (test code = 751) MEAN CORPUSCULAR HEMOGLOBIN CONC 31.5 GM/DL 32.2-35.5 L (BEAKER) (test code = 752) RED CELL DISTRIBUTION WIDTH 15.1 % 11.7-14.4 H (BEAKER) (test code = 412) PLATELET COUNT (BEAKER) (test 212 K/CU MM 150-450 code = 756) MEAN PLATELET VOLUME (BEAKER) 11.5 fL 9.4-12.3 (test code = 754) NUCLEATED RED BLOOD CELLS 0 /100 WBC 0-0 (BEAKER) (test code = 413) BASIC METABOLIC [id number] 05:39:37 Test Item Value Reference Range Interpretation Comments SODIUM (BEAKER) 142 meq/L 136-145 (test code = 381) POTASSIUM 4.0 meq/L 3.5-5.1 (BEAKER) (test code = 379) CHLORIDE (BEAKER) 113 meq/L 98-107 H (test code = 382) CO2 (BEAKER) 23 meq/L 22-29 (test code = 355) BLOOD UREA 19 mg/dL 7-21 NITROGEN (BEAKER) (test code = 354) CREATININE 0.76 mg/dL 0.57-1.25 (BEAKER) (test code = 358) GLUCOSE RANDOM 140 mg/dL 70-105 H (BEAKER) (test code = 652) CALCIUM (BEAKER) 9.0 mg/dL 8.4-10.2 (test code = 697) EGFR (BEAKER) 79 Interpretatio n of eGFR (test code = mL/min/1.73 values Stage De scription 1092) sq m Result G1 Polina l or high >=90 G2 Mildly decreased 60-89 G3a Mildl y to moderately 45-5 9 G3b Moderately to s everely 30-44 G4 Severl y decreased 15-29 G5 Kidne y failure <15Reported eGF R is based on the CKD-EPI 2020 equation that d oes not use a race coefficientEsti mated GFR is not as accur ate as Creatinine Mikaela krista in predicting glom erular filtration rate . 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 ID - [id number] 05:39:37 Test Item Value Reference Range Interpretation Comments PHOSPHORUS (BEAKER) (test code = 1.6 mg/dL 2.3-4.7 L 604) Sheriff'S Sergeant ID - [id number] 05:39:36 Test Item Value Reference Range Interpretation Comments MAGNESIUM (BEAKER) (test code = 1.2 mg/dL 1.6-2.6 L 627) Sheriff'S Sergeant ID - adminUrinalysis w/Microscopic + Reflex to [id number] 00:52:10 Test Item Value Reference Range Interpretation Comments Color, UA (test code Light Yellow = 5778-6) Clarity, UA (test Clear code = 5767-9) Specific Placedo, UA 1.021 1.001-1.035 (test code = 5811-5) pH, UA (test code = 6.0 5.0-8.0 5803-2) Protein, UA (test 200 mg/dL Negative A code = 81126-2) Glucose, UA (test 100 mg/dL Negative A code = 365) Ketones, UA (test Negative Negative code = 2514-8) Bilirubin, UA (test Negative Negative code = 08391-6) Blood, UA (test code Negative Negative = 27591-6) Nitrite, UA (test Negative Negative code = 5802-4) Leukocytes, UA (test Negative Negative code = 5799-2) Urobilinogen, UA 0.2 0.2-1.0 (test code = 93946-3) RBC, UA (test code = 0 See_Comment [Autom ated 43793-6) message] The system which generated this result transmit juan reference range : /HPF. The reference range was not used to interpret this result as normal/abnormal . WBC, UA (test code = 3 See_Comment [Autom ated 5821-4) message] The system which generated this result transmit juan reference range : /HPF. The reference range was not used to interpret this result as normal/abnormal . Squam Epithel, UA 2 See_Comment [Automate d (test code = 67098-8) messag e] The system which generated this result transmit juan reference range : /HPF. The reference range was not used to interpret this result as normal/abnormal . Specimen Source (test code = 2795) ADREN (test code = DAREN) Sheriff'S Sergeant ID - [auto]Sheriff'S Sergeant ID - tech Lab Interpretation Abnormal (test code = 66431-6) [facility]scopic + Reflex to Culture 2023-03-26 00:52:10 Test Item Value Reference Range Interpretation Comments Color, UA (test code Light Yellow = 5778-6) Clarity, UA (test Clear code = 5767-9) Specific Placedo, UA 1.021 1.001-1.035 (test code = 5811-5) pH, UA (test code = 6.0 5.0-8.0 5803-2) Protein, UA (test 200 mg/dL Negative A code = 20366-7) Glucose, UA (test 100 mg/dL Negative A code = 365) Ketones, UA (test Negative Negative code = 2514-8) Bilirubin, UA (test Negative Negative code = 18625-4) Blood, UA (test code Negative Negative = 78271-5) Nitrite, UA (test Negative Negative code = 5802-4) Leukocytes, UA (test Negative Negative code = 5799-2) Urobilinogen, UA 0.2 0.2-1.0 (test code = 63845-3) RBC, UA (test code = 0 See_Comment [Autom ated 63036-3) message] The system which generated this result transmit juan reference range : /HPF. The reference range was not used to interpret this result as normal/abnormal . WBC, UA (test code = 3 See_Comment [Autom ated 5821-4) message] The system which generated this result transmit juan reference range : /HPF. The reference range was not used to interpret this result as normal/abnormal . Nereyda Lee UA 2 See_Comment [Automate d (test code = 96177-2) messag e] The system which generated this result transmit juan reference range : /HPF. The reference range was not used to interpret this result as normal/abnormal . Specimen Source (test code = 2795) DAREN (test code = DAREN) Sheriff'S Sergeant ID - [auto]Sheriff'S Sergeant ID - tech Lab Interpretation Abnormal (test code = 94045-3) [facility] + Reflex to Culture 2023-03-26 00:52:10 Test Item Value Reference Range Interpretation Comments Color, UA (test code Light Yellow = 5778-6) Clarity, UA (test Clear code = 5767-9) Specific Placedo, UA 1.021 1.001-1.035 (test code = 5811-5) pH, UA (test code = 6.0 5.0-8.0 5803-2) Protein, UA (test 200 mg/dL Negative A code = 35167-2) Glucose, UA (test 100 mg/dL Negative A code = 365) Ketones, UA (test Negative Negative code = 2514-8) Bilirubin, UA (test Negative Negative code = 53958-9) Blood, UA (test code Negative Negative = 40738-1) Nitrite, UA (test Negative Negative code = 5802-4) Leukocytes, UA (test Negative Negative code = 5799-2) Urobilinogen, UA 0.2 0.2-1.0 (test code = 18157-7) RBC, UA (test code = 0 See_Comment [Autom ated 30328-8) message] The system which generated this result transmit juan reference range : /HPF. The reference range was not used to interpret this result as normal/abnormal . WBC, UA (test code = 3 See_Comment [Autom ated 5821-4) message] The system which generated this result transmit juan reference range : /HPF. The reference range was not used to interpret this result as normal/abnormal . Nereyda Lee UA 2 See_Comment [Automate d (test code = 20006-4) messag e] The system which generated this result transmit juan reference range : /HPF. The reference range was not used to interpret this result as normal/abnormal . Specimen Source (test code = 2795) DAREN (test code = DAREN) Sheriff'S Sergeant ID - [auto]Sheriff'S Sergeant ID - tech Lab Interpretation Abnormal (test code = 69100-9) [facility]/Microscopic + Reflex to Culture 2023-03-26 00:52:10 Test Item Value Reference Range Interpretation Comments Color, UA (test code Light Yellow = 5778-6) Clarity, UA (test Clear code = 5767-9) Specific Placedo, UA 1.021 1.001-1.035 (test code = 5811-5) pH, UA (test code = 6.0 5.0-8.0 5803-2) Protein, UA (test 200 mg/dL Negative A code = 30612-7) Glucose, UA (test 100 mg/dL Negative A code = 365) Ketones, UA (test Negative Negative code = 2514-8) Bilirubin, UA (test Negative Negative code = 87767-2) Blood, UA (test code Negative Negative = 50231-1) Nitrite, UA (test Negative Negative code = 5802-4) Leukocytes, UA (test Negative Negative code = 5799-2) Urobilinogen, UA 0.2 0.2-1.0 (test code = 69809-8) RBC, UA (test code = 0 See_Comment [Autom ated 51820-4) message] The system which generated this result transmit juan reference range : /HPF. The reference range was not used to interpret this result as normal/abnormal . WBC, UA (test code = 3 See_Comment [Autom ated 5821-4) message] The system which generated this result transmit juan reference range : /HPF. The reference range was not used to interpret this result as normal/abnormal . Squam Epithel, UA 2 See_Comment [Automate d (test code = 64502-6) messag e] The system which generated this result transmit juan reference range : /HPF. The reference range was not used to interpret this result as normal/abnormal . Specimen Source (test code = 2795) DAREN (test code = DAREN) Sheriff'S Sergeant ID - [auto]Sheriff'S Sergeant ID - tech Lab Interpretation Abnormal (test code = 91979-6) [facility]/Microscopic + Reflex to Culture 2023-03-26 00:52:10 Test Item Value Reference Range Interpretation Comments Color, UA (test code Light Yellow = 5778-6) Clarity, UA (test Clear code = 5767-9) Specific Placedo, UA 1.021 1.001-1.035 (test code = 5811-5) pH, UA (test code = 6.0 5.0-8.0 5803-2) Protein, UA (test 200 mg/dL Negative A code = 16192-5) Glucose, UA (test 100 mg/dL Negative A code = 365) Ketones, UA (test Negative Negative code = 2514-8) Bilirubin, UA (test Negative Negative code = 60752-9) Blood, UA (test code Negative Negative = 16581-8) Nitrite, UA (test Negative Negative code = 5802-4) Leukocytes, UA (test Negative Negative code = 5799-2) Urobilinogen, UA 0.2 0.2-1.0 (test code = 17733-0) RBC, UA (test code = 0 See_Comment [Autom ated 38888-1) message] The system which generated this result transmit juan reference range : /HPF. The reference range was not used to interpret this result as normal/abnormal . WBC, UA (test code = 3 See_Comment [Autom ated 5821-4) message] The system which generated this result transmit juna reference range : /HPF. The reference range was not used to interpret this result as normal/abnormal . Squam Epithel, UA 2 See_Comment [Automate d (test code = 08325-3) messag e] The system which generated this result transmit juan reference range : /HPF. The reference range was not used to interpret this result as normal/abnormal . Specimen Source (test code = 2795) DAREN (test code = DAREN) Sheriff'S Sergeant ID - [auto]Sheriff'S Sergeant ID - tech Lab Interpretation Abnormal (test code = 27888-7) [facility]/Microscopic + Reflex to Culture 2023-03-26 00:52:10 Test Item Value Reference Range Interpretation Comments Color, UA (test code Light Yellow = 5778-6) Clarity, UA (test Clear code = 5767-9) Specific Placedo, UA 1.021 1.001-1.035 (test code = 5811-5) pH, UA (test code = 6.0 5.0-8.0 5803-2) Protein, UA (test 200 mg/dL Negative A code = 44905-7) Glucose, UA (test 100 mg/dL Negative A code = 365) Ketones, UA (test Negative Negative code = 2514-8) Bilirubin, UA (test Negative Negative code = 93484-2) Blood, UA (test code Negative Negative = 21846-2) Nitrite, UA (test Negative Negative code = 5802-4) Leukocytes, UA (test Negative Negative code = 5799-2) Urobilinogen, UA 0.2 0.2-1.0 (test code = 11658-0) RBC, UA (test code = 0 See_Comment [Autom ated 37102-5) message] The system which generated this result transmit juan reference range : /HPF. The reference range was not used to interpret this result as normal/abnormal . WBC, UA (test code = 3 See_Comment [Autom ated 5821-4) message] The system which generated this result transmit juan reference range : /HPF. The reference range was not used to interpret this result as normal/abnormal . Squam Epithel, UA 2 See_Comment [Automate d (test code = 67233-2) messag e] The system which generated this result transmit juan reference range : /HPF. The reference range was not used to interpret this result as normal/abnormal . Specimen Source (test code = 2795) DAREN (test code = DAREN) Sheriff'S Sergeant ID - [auto]Sheriff'S Sergeant ID - tech Lab Interpretation Abnormal (test code = 04564-3) [facility]/ REFLEX URINE [id number] 00:52:10 Test Item Value Reference Range Interpretation Comments COLOR (BEAKER) (test code = 470) Light Yellow CLARITY (BEAKER) (test code = Clear 469) SPECIFIC GRAVITY UA (BEAKER) 1.021 1.001-1.035 (test code = 468) PH UA (BEAKER) (test code = 467) 6.0 5.0-8.0 PROTEIN UA (BEAKER) (test code = 200 mg/dL Negative A 464) GLUCOSE UA (BEAKER) (test code = 100 mg/dL Negative A 365) KETONES UA (BEAKER) (test code = Negative Negative 371) BILIRUBIN UA (BEAKER) (test code Negative Negative = 462) BLOOD UA (BEAKER) (test code = Negative Negative 461) NITRITE UA (BEAKER) (test code = Negative Negative 465) LEUKOCYTE ESTERASE UA (BEAKER) Negative Negative (test code = 466) UROBILINOGEN UA (BEAKER) (test 0.2 0.2-1.0 code = 463) RBC UA (BEAKER) (test code = 0 /HPF 519) WBC UA (BEAKER) (test code = 3 /HPF 520) SQUAMOUS EPITHELIAL (BEAKER) 2 /HPF (test code = 516) SOURCE(BEAKER) (test code = 2795) Sheriff'S Sergeant ID - [auto]Sheriff'S Sergeant ID - techPOCT-GLUCOSE [id number] 21:24:09 Test Item Value Reference Range Interpretation Comments POC-GLUCOSE METER 233 mg/dL 70-110 H : TESTED A T [facility] 6720 (BEAKER) (test code = [facility], [facility]) [address]: Sheriff'S Sergeant/Techni britney ID = [id number] for JAYY THOMAS SE POCT-GLUCOSE [id number] 17:50:07 Test Item Value Reference Range Interpretation Comments POC-GLUCOSE METER 180 mg/dL 70-110 H : TESTED A T [facility] 6720 (BEAKER) (test code = [facility], [facility]8) 013[address]: Sheriff'S Sergeant/Techni britney ID = [id number] for Am ador, Rafael POCT-GLUCOSE [id number] 14:32:50 Test Item Value Reference Range Interpretation Comments POC-GLUCOSE METER 167 mg/dL 70-110 H : TESTED A T [facility] 6720 (BEAKER) (test code = [facility], 1538) 85061: Sheriff'S Sergeant/Techni britney ID = [id number] for Marva Fernandez POCT-GLUCOSE [id number] 08:39:13 Test Item Value Reference Range Interpretation Comments POC-GLUCOSE METER 161 mg/dL 70-110 H : TESTED A T [facility] 6720 (BEAKER) (test code = [facility], 1538) 96388: Sheriff'S Sergeant/Techni britney ID = [id number] for Am ador, Rafael BASIC METABOLIC [id number] 07:02:06 Test Item Value Reference Range Interpretation Comments SODIUM (BEAKER) 143 meq/L 136-145 (test code = 381) POTASSIUM 4.5 meq/L 3.5-5.1 (BEAKER) (test code = 379) CHLORIDE (BEAKER) 115 meq/L 98-107 H (test code = 382) CO2 (BEAKER) 23 meq/L 22-29 (test code = 355) BLOOD UREA 26 mg/dL 7-21 H NITROGEN (BEAKER) (test code = 354) CREATININE 0.93 mg/dL 0.57-1.25 (BEAKER) (test code = 358) GLUCOSE RANDOM 146 mg/dL 70-105 H (BEAKER) (test code = 652) CALCIUM (BEAKER) 9.0 mg/dL 8.4-10.2 (test code = 697) EGFR (BEAKER) 62 Interpretatio n of eGFR (test code = mL/min/1.73 values Stage De scription 1092) sq m Result G1 Polina l or high >=90 G2 Mildly decreased 60-89 G3a Mildl y to moderately 45-5 9 G3b Moderately to s everely 30-44 G4 Severl y decreased 15-29 G5 Kidney failure <15Reported eGF R is based on the CKD-EPI 2020 equation that d oes not use a race coefficientEsti mated GFR is not as accur ate as Creatinine Mikaela velasco in predicting glom erular filtration rate . 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 ID - [id number] 06:37:30 Test Item Value Reference Range Interpretation Comments PHOSPHORUS (BEAKER) (test code = 2.5 mg/dL 2.3-4.7 604) Sheriff'S Sergeant ID - [id number] 06:37:29 Test Item Value Reference Range Interpretation Comments MAGNESIUM (BEAKER) (test code = 1.6 mg/dL 1.6-2.6 627) Sheriff'S Sergeant ID - [id number] (HEMOGRAM ONLY)2023-03-25 06:24:37 Test Item Value Reference Range Interpretation Comments WHITE BLOOD CELL COUNT (BEAKER) 7.3 K/ L 3.5-10.5 (test code = 775) RED BLOOD CELL COUNT (BEAKER) 3.77 M/ L 3.93-5.22 L (test code = 761) HEMOGLOBIN (BEAKER) (test code = 11.3 GM/DL 11.2-15.7 410) HEMATOCRIT (BEAKER) (test code = 35.8 % 34.1-44.9 411) MEAN CORPUSCULAR VOLUME (BEAKER) 95 fL 79-95 (test code = 753) MEAN CORPUSCULAR HEMOGLOBIN 30.0 pg 25.6-32.2 (BEAKER) (test code = 751) MEAN CORPUSCULAR HEMOGLOBIN CONC 31.6 GM/DL 32.2-35.5 L (BEAKER) (test code = 752) RED CELL DISTRIBUTION WIDTH 15.3 % 11.7-14.4 H (BEAKER) (test code = 412) PLATELET COUNT (BEAKER) (test 198 K/CU MM 150-450 code = 756) MEAN PLATELET VOLUME (BEAKER) 11.8 fL 9.4-12.3 (test code = 754) NUCLEATED RED BLOOD CELLS 0 /100 WBC 0-0 (BEAKER) (test code = 413) POCT-GLUCOSE [id number] 21:32:31 Test Item Value Reference Range Interpretation Comments POC-GLUCOSE METER 150 mg/dL 70-110 H : TESTED A T [facility] 6720 (BEAKER) (test code = [facility], 1538) 15869: Sheriff'S Sergeant/Techni britney ID = [id number] for JAYY THOMAS SE POCT-GLUCOSE [id number] 16:31:16 Test Item Value Reference Range Interpretation Comments POC-GLUCOSE METER 133 mg/dL 70-110 H : TESTED A T [facility] 6720 (BEAKER) ([facility], = 1538) 07218: Sheriff'S Sergeant/Techni britney ID = [id number] for NARCISA Siddiqi ANDRÉS XR ABDOMEN/KUB 1 VIEW [id number] 14:32:35 [facility] 1940 Sex: FEXAMINATION: XR ABDOMEN/KUB 1 VIEW PORTABLE INDICATION: constipationCOMPARISON: None FINDINGS/IMPRESSION:Significant retained feces in the ascending colon which may representconstipation. No radiographically apparent urinary calculi. Degenerativechanges throughout the lumbar spine.Electronically Signed By: Michael Rollins 14:34 CDTWorkstation Name: [id number] METER 2023-03-24 13:00:21 Test Item Value Reference Range Interpretation Comments POC-GLUCOSE METER 171 mg/dL 70-110 H : TESTED A T [facility] 6720 (BEAKER) (test code [facility], = 1538) 36366: Sheriff'S Sergeant/Techni britney ID = [id number] for KARLEE Martinez -NARCISA Melendez ANDRÉS POCT-GLUCOSE [id number] 08:08:11 Test Item Value Reference Range Interpretation Comments POC-GLUCOSE METER 161 mg/dL 70-110 H : TESTED A T [facility] 6720 (BEAKER) (test code [facility], = 1538) 96840: Sheriff'S Sergeant/Techni britney ID = [id number] for KARLEE S -NARCISA Melendez ANDRÉS BASIC METABOLIC [id number] 05:08:29 Test Item Value Reference Range Interpretation Comments SODIUM (BEAKER) 143 meq/L 136-145 (test code = 381) POTASSIUM 3.2 meq/L 3.5-5.1 L (BEAKER) (test code = 379) CHLORIDE (BEAKER) 119 meq/L 98-107 H (test code = 382) CO2 (BEAKER) 19 meq/L 22-29 L (test code = 355) BLOOD UREA 22 mg/dL 7-21 H NITROGEN (BEAKER) (test code = 354) CREATININE 0.90 mg/dL 0.57-1.25 (BEAKER) (test code = 358) GLUCOSE RANDOM 148 mg/dL 70-105 H (BEAKER) (test code = 652) CALCIUM (BEAKER) 7.5 mg/dL 8.4-10.2 L (test code = 697) EGFR (BEAKER) 64 Interpretatio n of eGFR (test code = mL/min/1.73 values Stage De scription 1092) sq m Result G1 Polina l or high >=90 G2 Mildly decreased 60-89 G3a Mildl y to moderately 45-5 9 G3b Moderately to s everely 30-44 G4 Severl y decreased 15-29 G5 Kidney failure <15Reported eGF R is based on the CKD-EPI 2020 equation that d oes not use a race coefficientEsti mated GFR is not as accur ate as Creatinine Mikaela krista in predicting glom erular filtration rate . 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 ID Xavier THIBODEAUX [id number] 05:05:35 Test Item Value Reference Range Interpretation Comments MAGNESIUM (BEAKER) (test code = 1.6 mg/dL 1.6-2.6 627) Sheriff'S Sergeant ID Xavier THIBODEAUX [id number] 05:05:35 Test Item Value Reference Range Interpretation Comments PHOSPHORUS (BEAKER) (test code = 2.8 mg/dL 2.3-4.7 604) Sheriff'S Sergeant ID Xavier THIBODEAUX WCBC (HEMOGRAM ONLY)2023-03-24 04:34:18 Test Item Value Reference Range Interpretation Comments WHITE BLOOD CELL COUNT (BEAKER) 9.9 K/ L 3.5-10.5 (test code = 775) RED BLOOD CELL COUNT (BEAKER) 4.02 M/ L 3.93-5.22 (test code = 761) HEMOGLOBIN (BEAKER) (test code = 11.7 GM/DL 11.2-15.7 410) HEMATOCRIT (BEAKER) (test code = 36.6 % 34.1-44.9 411) MEAN CORPUSCULAR VOLUME (BEAKER) 91 fL 79-95 (test code = 753) MEAN CORPUSCULAR HEMOGLOBIN 29.1 pg 25.6-32.2 (BEAKER) (test code = 751) MEAN CORPUSCULAR HEMOGLOBIN CONC 32.0 GM/DL 32.2-35.5 L (BEAKER) (test code = 752) RED CELL DISTRIBUTION WIDTH 14.9 % 11.7-14.4 H (BEAKER) (test code = 412) PLATELET COUNT (BEAKER) (test 186 K/CU MM 150-450 code = 756) MEAN PLATELET VOLUME (BEAKER) 11.5 fL 9.4-12.3 (test code = 754) NUCLEATED RED BLOOD CELLS 0 /100 WBC 0-0 (BEAKER) (test code = 413) POCT-GLUCOSE [id number] 20:24:24 Test Item Value Reference Range Interpretation Comments POC-GLUCOSE METER 235 mg/dL 70-110 H : TESTED A T [facility] 6720 (BEAKER) (test code = [facility], 1538) 50673: Sheriff'S Sergeant/Techni britney ID = [id number] for JULIO GUAMAN POCT-GLUCOSE [id number] 17:11:38 Test Item Value Reference Range Interpretation Comments POC-GLUCOSE METER 283 mg/dL 70-110 H : TESTED A T [facility] 67[address] ([facility]) (test code = [facility], 153) 92826: Sheriff'S Sergeant/Techni britney ID = [id number] for Ge Perico tapiaabelle POCT-GLUCOSE [id number] 11:21:23 Test Item Value Reference Range Interpretation Comments POC-GLUCOSE METER 311 mg/dL 70-110 H : TESTED A T [facility] 6720 (BEAKER) (test code = [facility], 1538) 08635: Sheriff'S Sergeant/Techni britney ID = [id number] for Darren perez Claire POC-Glucose [id number] 06:47:14 Test Item Value Reference Range Interpretation Comments POC-Glucose Meter (test 199 mg/dL 70-110 H : TE STED AT [facility] code = 1538) [address] [facility], [address]: Sheriff'S Sergeant/Techni britney ID = [id number] for Darnell Baker Lab Interpretation (test Abnormal code = 75046-5) [facility] [id number] 06:47:14 Test Item Value Reference Range Interpretation Comments POC-GLUCOSE METER 199 mg/dL 70-110 H : TESTED A T [facility] 6720 (BEAKER) (test code [facility], = 1538) 02729: Sheriff'S Sergeant/Techni britney ID = [id number] for Torconcepcion isDejah [id number] 03:23:40 Test Item Value Reference Range Interpretation Comments MAGNESIUM (BEAKER) (test code = 1.8 mg/dL 1.6-2.6 627) Sheriff'S Sergeant ID - [id number] 03:23:40 Test Item Value Reference Range Interpretation Comments PHOSPHORUS (BEAKER) (test code = 4.2 mg/dL 2.3-4.7 604) Sheriff'S Sergeant ID - BSBASIC METABOLIC [id number] 03:23:39 Test Item Value Reference Range Interpretation Comments SODIUM (BEAKER) 140 meq/L 136-145 (test code = 381) POTASSIUM 4.1 meq/L 3.5-5.1 (BEAKER) (test code = 379) CHLORIDE (BEAKER) 111 meq/L 98-107 H (test code = 382) CO2 (BEAKER) 22 meq/L 22-29 (test code = 355) BLOOD UREA 23 mg/dL 7-21 H NITROGEN (BEAKER) (test code = 354) CREATININE 1.13 mg/dL 0.57-1.25 (BEAKER) (test code = 358) GLUCOSE RANDOM 220 mg/dL 70-105 H (BEAKER) (test code = 652) CALCIUM (BEAKER) 9.3 mg/dL 8.4-10.2 (test code = 697) EGFR (BEAKER) 49 Interpretatio n of eGFR (test code = mL/min/1.73 values Stage De scription 1092) sq m Result G1 Polina l or high >=90 G2 Mildly decreased 60-89 G3a Mildl y to moderately 45-5 9 G3b Moderately to s everely 30-44 G4 Severl y decreased 15-29 G5 Kidney failure <15Reported eGF R is based on the CKD-EPI 2020 equation that d oes not use a race coefficientEsti mated GFR is not as accur ate as Creatinine Mikaela velasco in predicting glom erular filtration rate . 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 ID - BSCBC (HEMOGRAM ONLY)2023-03-23 03:00:27 Test Item Value Reference Range Interpretation Comments WHITE BLOOD CELL COUNT (BEAKER) 12.1 K/ L 3.5-10.5 H (test code = 775) RED BLOOD CELL COUNT (BEAKER) 3.99 M/ L 3.93-5.22 (test code = 761) HEMOGLOBIN (BEAKER) (test code = 12.0 GM/DL 11.2-15.7 410) HEMATOCRIT (BEAKER) (test code = 37.2 % 34.1-44.9 411) MEAN CORPUSCULAR VOLUME (BEAKER) 93 fL 79-95 (test code = 753) MEAN CORPUSCULAR HEMOGLOBIN 30.1 pg 25.6-32.2 (BEAKER) (test code = 751) MEAN CORPUSCULAR HEMOGLOBIN CONC 32.3 GM/DL 32.2-35.5 (BEAKER) (test code = 752) RED CELL DISTRIBUTION WIDTH 14.9 % 11.7-14.4 H (BEAKER) (test code = 412) PLATELET COUNT (BEAKER) (test 245 K/CU MM 150-450 code = 756) MEAN PLATELET VOLUME (BEAKER) 11.6 fL 9.4-12.3 (test code = 754) NUCLEATED RED BLOOD CELLS 0 /100 WBC 0-0 (BEAKER) (test code = 413) POCT-GLUCOSE [id number] 23:31:12 Test Item Value Reference Range Interpretation Comments POC-GLUCOSE METER 260 mg/dL 70-110 H : TESTED A T [facility] 6720 (BEAKER) (test code [facility], = 1538) 71162: Sheriff'S Sergeant/Techni britney ID = [id number] for Torm is, Mariechella POCT-GLUCOSE [id number] 20:51:28 Test Item Value Reference Range Interpretation Comments POC-GLUCOSE METER 256 mg/dL 70-110 H : TESTED A T [facility] 6720 (BEAKER) (test code [facility], = 1538) 81150: Sheriff'S Sergeant/Techni britney ID = [id number] for Torm is, Mariechella XR CHEST 1 VIEW PORTABLE / [id number] 14:46:00 [facility] 1940 Sex: FEXAMINATION: XR CHEST 1 VIEW PORTABLE / BEDSIDE INDICATION: postop, central line placementCOMPARISON: March 20, 2023 FINDINGS:LINES/TUBES: There is interval insertion of a left internal jugularcentral venous catheter with its tip overlying the region of the SVC. LUNGS: The lungs are well inflated. No focal airspace consolidation.PLEURA: No pleural effusion or pneumothorax.MEDIASTINUM: The cardiomediastinal silhouette appears normal in size andshape.BONES/SOFT TISSUES: No acute osseous injury.ABDOMEN: No free air under the diaphragm.IMPRESSION:No focal pneumonia or airspace edema.Electronically Signed By: Angelo Rollins 14:48 CDTWorkstation Name: [id number] 2023-03-22 14:34:09 Test Item Value Reference Range Interpretation Comments MAGNESIUM (BEAKER) (test code = 1.4 mg/dL 1.6-2.6 L 627) Sheriff'S Sergeant ID - [id number] 14:34:09 Test Item Value Reference Range Interpretation Comments PHOSPHORUS (BEAKER) (test code = 3.7 mg/dL 2.3-4.7 604) Sheriff'S Sergeant ID - BSBASIC METABOLIC [id number] 14:34:08 Test Item Value Reference Range Interpretation Comments SODIUM (BEAKER) 140 meq/L 136-145 (test code = 381) POTASSIUM 3.9 meq/L 3.5-5.1 (BEAKER) (test code = 379) CHLORIDE (BEAKER) 112 meq/L 98-107 H (test code = 382) CO2 (BEAKER) 19 meq/L 22-29 L (test code = 355) BLOOD UREA 18 mg/dL 7-21 NITROGEN (BEAKER) (test code = 354) CREATININE 0.94 mg/dL 0.57-1.25 (BEAKER) (test code = 358) GLUCOSE RANDOM 154 mg/dL 70-105 H (BEAKER) (test code = 652) CALCIUM (BEAKER) 9.0 mg/dL 8.4-10.2 (test code = 697) EGFR (BEAKER) 61 Interpretatio n of eGFR (test code = mL/min/1.73 values Stage De scription 1092) sq m Result G1 Polina l or high >=90 G2 Mildly decreased 60-89 G3a Mildl y to moderately 45-5 9 G3b Moderately to s everely 30-44 G4 Severl y decreased 15-29 G5 Kidney failure <15Reported eGF R is based on the CKD-EPI 2020 equation that d oes not use a race coefficientEsti mated GFR is not as accur ate as Creatinine Mikaela krista in predicting glom erular filtration rate . Estimated GFR is not appl icable for dialysis patien krista Sheriff'S Sergeant ID - BSPOCT-GLUCOSE [id number] 13:46:16 Test Item Value Reference Range Interpretation Comments POC-GLUCOSE METER 153 mg/dL 70-110 H : TESTED A T [facility] 6720 (BEAKER) ([facility], = 1538) [address]: Sheriff'S Sergeant/Techni britney ID = [id number] for Neville Lo CBC (HEMOGRAM ONLY)2023-03-22 12:39:09 Test Item Value Reference Range Interpretation Comments WHITE BLOOD CELL COUNT (BEAKER) 8.5 K/ L 3.5-10.5 (test code = 775) RED BLOOD CELL COUNT (BEAKER) 4.47 M/ L 3.93-5.22 (test code = 761) HEMOGLOBIN (BEAKER) (test code = 13.0 GM/DL 11.2-15.7 410) HEMATOCRIT (BEAKER) (test code = 40.7 % 34.1-44.9 411) MEAN CORPUSCULAR VOLUME (BEAKER) 91 fL 79-95 (test code = 753) MEAN CORPUSCULAR HEMOGLOBIN 29.1 pg 25.6-32.2 (BEAKER) (test code = 751) MEAN CORPUSCULAR HEMOGLOBIN CONC 31.9 GM/DL 32.2-35.5 L (BEAKER) (test code = 752) RED CELL DISTRIBUTION WIDTH 14.9 % 11.7-14.4 H (BEAKER) (test code = 412) PLATELET COUNT (BEAKER) (test 212 K/CU MM 150-450 code = 756) MEAN PLATELET VOLUME (BEAKER) 11.2 fL 9.4-12.3 (test code = 754) NUCLEATED RED BLOOD CELLS 0 /100 WBC 0-0 (BEAKER) (test code = 413) Prepare [id number] 11:45:00 Test Item Value Reference Range Interpretation Comments CROSSMATCH (test code = COMPATIBLE 2264) Unit ABO (test code = A Neg [id number]) UNIT NUMBER (test code = [id number] 934-0) Status (test code = RETURNED FROM ISSUE 15100827) Blood Bank Product (test RED BLOOD CELLS code = 2263) PRODUCT CODE (test code = [id number] 933-2) [facility]2023-10-05 11:45:00 Test Item Value Reference Range Interpretation Comments CROSSMATCH (test code = COMPATIBLE 2264) Unit ABO (test code = A Neg 1210614) UNIT NUMBER (test code = [id number] 934-0) Status (test code = RETURNED FROM ISSUE 15100827) Blood Bank Product (test RED BLOOD CELLS code = 2263) PRODUCT CODE (test code = [id number] 933-2) [facility]2023-10-05 11:45:00 Test Item Value Reference Range Interpretation Comments CROSSMATCH (test code = COMPATIBLE 2264) Unit ABO (test code = A Neg 1490675) UNIT NUMBER (test code = [id number] 934-0) Status (test code = RETURNED FROM ISSUE 15100827) Blood Bank Product (test RED BLOOD CELLS code = 2263) PRODUCT CODE (test code = I3602O21 933-2) [facility] [id number] 11:45:00 Test Item Value Reference Range Interpretation Comments CROSSMATCH (test code = COMPATIBLE 2264) Unit ABO (test code = A Neg 1935754) UNIT NUMBER (test code = [id number] 934-0) Status (test code = RETURNED FROM ISSUE 15100827) Blood Bank Product (test RED BLOOD CELLS code = 2263) PRODUCT CODE (test code = [id number] 933-2) [facility]2023-10-05 11:45:00 Test Item Value Reference Range Interpretation Comments CROSSMATCH (test code = COMPATIBLE 2264) Unit ABO (test code = A Neg 3558922) UNIT NUMBER (test code = [id number] 934-0) Status (test code = RETURNED FROM ISSUE 15100827) Blood Bank Product (test RED BLOOD CELLS code = 2263) PRODUCT CODE (test code = [id number] 933-2) [facility] [id number] 11:45:00 Test Item Value Reference Range Interpretation Comments CROSSMATCH (test code = COMPATIBLE 2264) Unit ABO (test code = A Neg 9093063) UNIT NUMBER (test code = [id number] 934-0) Status (test code = RETURNED FROM ISSUE 15100827) Blood Bank Product (test RED BLOOD CELLS code = 2263) PRODUCT CODE (test code = [id number] 933-2) [facility]2023-10-05 11:45:00 Test Item Value Reference Range Interpretation Comments CROSSMATCH (test code = COMPATIBLE 4) Unit ABO (test code = A Neg 7517467) UNIT NUMBER (test code = [id number] 934-0) Status (test code = RETURNED FROM ISSUE 15100827) Blood Bank Product (test RED BLOOD CELLS code = 2263) PRODUCT CODE (test code = [id number] 933-2) [facility] ACTIVATED CLOTTING [id number] 10:37:56 Test Item Value Reference Range Interpretation Comments Activated Clotting Time 293 sec : 74 -137 seconds, (test code = 3184-9) Baselin e: TESTED AT [facility] [address], [address]: Sheriff'S Sergeant/Techni britney ID = [id number] for BETZAIDA PÉREZ [facility] ACTIVATED CLOTTING [id number] 10:37:56 Test Item Value Reference Range Interpretation Comments Activated Clotting Time 293 sec : 74 -137 seconds, (test code = 3184-9) Baselin e: TESTED AT [facility] [address], [address]: Sheriff'S Sergeant/Techni britney ID = [id number] for BETZAIDA PÉREZ [facility] ACTIVATED CLOTTING [id number] 10:37:56 Test Item Value Reference Range Interpretation Comments Activated Clotting Time 293 sec : 74 -137 seconds, (test code = 3184-9) Baselin e: TESTED AT [address], [address]: Sheriff'S Sergeant/Techni britney ID = [id number] for BETZAIDA PÉREZ [facility] ACTIVATED CLOTTING [id number] 10:37:56 Test Item Value Reference Range Interpretation Comments Activated Clotting Time 293 sec : 74 -137 seconds, (test code = 3184-9) Baselin e: TESTED AT [address], [address]: Sheriff'S Sergeant/Techni brintey ID = [id number] for BETZAIDA PÉREZ [facility] ACTIVATED CLOTTING [id number] 10:37:56 Test Item Value Reference Range Interpretation Comments Activated Clotting Time 293 sec : 74 -137 seconds, (test code = 3184-9) Baselin e: TESTED AT [address], [address]: Sheriff'S Sergeant/Techni britney ID = [id number] for BETZAIDA PÉREZ [facility] ACTIVATED CLOTTING [id number] 10:37:56 Test Item Value Reference Range Interpretation Comments Activated Clotting Time 293 sec : 74 -137 seconds, (test code = 3184-9) Baselin e: TESTED AT [address], [address]: Sheriff'S Sergeant/Techni britney ID = [id number] for BETZAIDA PÉREZ [facility] ACTIVATED CLOTTING [id number] 10:37:56 Test Item Value Reference Range Interpretation Comments Activated Clotting Time 293 sec : 74 -137 seconds, (test code = 3184-9) Baselin e: TESTED AT [address], [address]: Sheriff'S Sergeant/Techni britney ID = [id number] [id number] 10:37:56 Test Item Value Reference Range Interpretation Comments ACTIVATED CLOTTING TIME 293 sec : 74 -137 seconds, (BEAKER) (test code = Baseli ne: TESTED AT 441) [address], [address]: Sheriff'S Sergeant/Techni britney ID = [id number] for BETZAIDA PÉREZ POCT-GLUCOSE [id number] 06:57:27 Test Item Value Reference Range Interpretation Comments POC-GLUCOSE METER 128 mg/dL 70-110 H : TESTED A T [facility] 6720 (BEAKER) (test code = [place], 1538) [address]: Sheriff'S Sergeant/Techni britney ID = [id number] for HEIDI MEDINA [id number] 01:24:21 Test Item Value Reference Range Interpretation Comments PARTIAL THROMBOPLASTIN TIME 27.1 seconds 22.5-36.0 (BEAKER) (test code = 760) PROTHROMBIN TIME/[id number] 01:23:43 Test Item Value Reference Range Interpretation Comments PROTIME (BEAKER) (test code = 14.9 seconds 11.9-14.2 H 759) INR (BEAKER) (test code = 370) 1.17 <=5.90 RECOMMENDED COUMADIN/WARFARIN INR THERAPY RANGESSTANDARD DOSE: 2.0 - 3.0 Includes: PROPHYLAXIS for venous thrombosis, systemic embolization; TREATMENT for venous thrombosis and/or pulmonary embolus.HIGH RISK: Target INR is 2.5-3.5 for patients with mechanical heart valves.BASIC METABOLIC [id number] 01:21:41 Test Item Value Reference Range Interpretation Comments SODIUM (BEAKER) 140 meq/L 136-145 (test code = 381) POTASSIUM 3.7 meq/L 3.5-5.1 (BEAKER) (test code = 379) CHLORIDE (BEAKER) 108 meq/L 98-107 H (test code = 382) CO2 (BEAKER) 26 meq/L 22-29 (test code = 355) BLOOD UREA 19 mg/dL 7-21 NITROGEN (BEAKER) (test code = 354) CREATININE 0.99 mg/dL 0.57-1.25 (BEAKER) (test code = 358) GLUCOSE RANDOM 95 mg/dL 70-105 (BEAKER) (test code = 652) CALCIUM (BEAKER) 9.2 mg/dL 8.4-10.2 (test code = 697) EGFR (BEAKER) 57 Interpretatio n of eGFR (test code = mL/min/1.73 values Stage De scription 1092) sq m Result G1 Polina l or high >=90 G2 Mildly decreased 60-89 G3a Mildl y to moderately 45-5 9 G3b Moderately to s everely 30-44 G4 Severl y decreased 15-29 G5 Kidney failure <15Reported eGF R is based on the CKD-EPI 2020 equation that d oes not use a race coefficientEsti mated GFR is not as accur ate as Creatinine Mikaela velasco in predicting glom erular filtration rate . 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 ID - [id number] 01:21:41 Test Item Value Reference Range Interpretation Comments MAGNESIUM (BEAKER) (test code = 1.5 mg/dL 1.6-2.6 L 627) Sheriff'S Sergeant ID - [id number] 01:21:41 Test Item Value Reference Range Interpretation Comments PHOSPHORUS (BEAKER) (test code = 3.6 mg/dL 2.3-4.7 604) Sheriff'S Sergeant ID - BSCBC W/PLT COUNT & AUTO [id number] 01:02:01 Test Item Value Reference Range Interpretation Comments WHITE BLOOD CELL COUNT (BEAKER) 7.7 K/ L 3.5-10.5 (test code = 775) RED BLOOD CELL COUNT (BEAKER) 4.46 M/ L 3.93-5.22 (test code = 761) HEMOGLOBIN (BEAKER) (test code = 12.8 GM/DL 11.2-15.7 410) HEMATOCRIT (BEAKER) (test code = 39.7 % 34.1-44.9 411) MEAN CORPUSCULAR VOLUME (BEAKER) 89 fL 79-95 (test code = 753) MEAN CORPUSCULAR HEMOGLOBIN 28.7 pg 25.6-32.2 (BEAKER) (test code = 751) MEAN CORPUSCULAR HEMOGLOBIN CONC 32.2 GM/DL 32.2-35.5 (BEAKER) (test code = 752) RED CELL DISTRIBUTION WIDTH 14.9 % 11.7-14.4 H (BEAKER) (test code = 412) PLATELET COUNT (BEAKER) (test 237 K/CU MM 150-450 code = 756) MEAN PLATELET VOLUME (BEAKER) 11.1 fL 9.4-12.3 (test code = 754) NUCLEATED RED BLOOD CELLS 0 /100 WBC 0-0 (BEAKER) (test code = 413) NEUTROPHILS RELATIVE PERCENT 61 % (BEAKER) (test code = 429) LYMPHOCYTES RELATIVE PERCENT 22 % (BEAKER) (test code = 430) MONOCYTES RELATIVE PERCENT 12 % (BEAKER) (test code = 431) EOSINOPHILS RELATIVE PERCENT 4 % (BEAKER) (test code = 432) BASOPHILS RELATIVE PERCENT 1 % (BEAKER) (test code = 437) NEUTROPHILS ABSOLUTE COUNT 4.71 K/ L 1.56-6.13 (BEAKER) (test code = 670) LYMPHOCYTES ABSOLUTE COUNT 1.65 K/ L 1.18-3.74 (BEAKER) (test code = 414) MONOCYTES ABSOLUTE COUNT (BEAKER) 0.91 K/ L 0.24-0.36 H (test code = 415) EOSINOPHILS ABSOLUTE COUNT 0.32 K/ L 0.04-0.36 (BEAKER) (test code = 416) BASOPHILS ABSOLUTE COUNT (BEAKER) 0.05 K/ L 0.01-0.08 (test code = 417) IMMATURE GRANULOCYTES-RELATIVE 0.30 % 0.00-1.00 PERCENT (BEAKER) (test code = 2801) POCT-GLUCOSE [id number] 21:31:52 Test Item Value Reference Range Interpretation Comments POC-GLUCOSE METER 192 mg/dL 70-110 H : TESTED A T [facility] 6720 (BEAKER) (test code = [facility], 1538) 28155: Sheriff'S Sergeant/Techni britney ID = [id number] for PRATEEK MOY POCT-GLUCOSE [id number] 17:49:07 Test Item Value Reference Range Interpretation Comments POC-GLUCOSE METER 318 mg/dL 70-110 H : TESTED A T [facility] 6720 (BEAKER) (test code = [facility], 1538) 89488: Sheriff'S Sergeant/Techni britney ID = [id number] for KRISTAL HERRERA CTA [id number] 13:49:19 [facility] LOIDA : 1940 Sex: FCTACAROTID, CTA BRAINBRAIN CT WITHOUT CONTRASTINDICATION: Carotid artery stenosisCOMPARISON: CT head ofthe same dateTECHNIQUE:Rapid acquisition spiral images were obtained between the aortic archand the cranial vertex during intravenous contrast infusion toreconstruct axial images and angiographic 3D maximum intensityprojections (MIP). 3-D volumetric reformatted images were created at [employer] workstation. Precontrast images of the brain were alsoobtained. Stenosis evaluation reported in compliance with NASCET criteria.DOSE REDUCTION: Dose modulation, iterative reconstruction, and/orweight-based adjustment of the mA/kV was utilized to reduce theradiation dose to as low as reasonably achievable.FINDINGS:NECT BRAIN:No intracranial hemorrhage, midline shift or mass effect. Midlinestructures are normally developed. Mild chronic microvascular ischemicchanges of the periventricular and subcortical white matter are present.No hydrocephalus.Orbits are within normal limits.No obstructive paranasal sinusdisease.CTA BRAIN:Internal carotid arteries: Dense calcific atherosclerosis. Petrous,cavernous and supraclinoid portions patent. Middle cerebral arteries: Bilateral MCA M1-M2 branches demonstratenormalcontrast enhancement.Anterior cerebral arteries: Bilateral MORIAH A1-A2 branches demonstratenormal contrast enhancement.Basilar system: Normal contrast opacification of the vertebrobasilarsystem.Posteriorcerebral arteries: Normal contrast opacification of thebilateral GUEST REQUEST RUNNER P1-P2 branches.Venous opacification: Major dural sinuses unremarkable for bolus timing.Additional findings: None.CTA NECK:Common carotid arteries: There is normal contrast opacification of thebilateral common carotid arteries.Cervical internal carotid arteries: 70% stenosis of the right proximalICA by NASCET criteria. Dense calcific atherosclerosis of the carotidbulbs. Normal contrast opacification of the left cervical internalcarotid artery without significant stenosis by NASCET criteria.Vertebral arteries: Normal contrast opacification of the bilateralcervical vertebral arteries.Arch anatomy: Conventional.Nonvascular findings:No acute findings within the neck soft tissues. IMPRESSION:1. No acute intracranial abnormality.2. 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 Densecalcific atherosclerosis of the carotid bulbs.3. No proximal vessel occlusion within the head or neck.Electronically Signed By: Mora Rivas03/21/2023 13:51 CDTWorkstation Name: [id number] 13:49:19[facility] : 1940 Sex: FCTACAROTID, CTA BRAINBRAIN CT WITHOUT CONTRASTINDICATION: Carotid artery stenosisCOMPARISON: CT head ofthe same dateTECHNIQUE:Rapid acquisition spiral images were obtained between the aortic archand the cranial vertex during intravenous contrast infusion toreconstruct axial images and angiographic 3D maximum intensityprojections (MIP). 3-D volumetric reformatted images were created at [employer] workstation. Precontrast images of the brain were alsoobtained. Stenosis evaluation reported in compliance with NASCET criteria.DOSE REDUCTION: Dose modulation, iterative reconstruction, and/orweight-based adjustment of the mA/kV was utilized to reduce theradiation dose to as low as reasonably achievable.FINDINGS:NECT BRAIN:No intracranial hemorrhage, midline shift or mass effect. Midlinestructures are normally developed. Mild chronic microvascular ischemicchanges of the periventricular and subcortical white matter are present.No hydrocephalus.Orbits are within normal limits.No obstructive paranasal sinusdisease.CTA BRAIN:Internal carotid arteries: Dense calcific atherosclerosis. Petrous,cavernous and supraclinoid portions patent. Middle cerebral arteries: Bilateral MCA M1-M2 branches demonstratenormalcontrast enhancement.Anterior cerebral arteries: Bilateral MORIAH A1-A2 branches demonstratenormal contrast enhancement.Basilar system: Normal contrast opacification of the vertebrobasilarsystem.Posteriorcerebral arteries: Normal contrast opacification of thebilateral GUEST REQUEST RUNNER P1-P2 branches.Venous opacification: Major dural sinuses unremarkable for bolus timing.Additional findings: None.CTA NECK:Common carotid arteries: There is normal contrast opacification of thebilateral common carotid arteries.Cervical internal carotid arteries: 70% stenosis of the right proximalICA by NASCET criteria. Dense calcific atherosclerosis of the carotidbulbs. Normal contrast opacification of the left cervical internalcarotid artery without significant stenosis by NASCET criteria.Vertebral arteries: Normal contrast opacification of the bilateralcervical vertebral arteries.Arch anatomy: Conventional.Nonvascular findings:No acute findings within the neck soft tissues. IMPRESSION:1. No acute intracranial abnormality.2. 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 Densecalcific atherosclerosis of the carotid bulbs.3. No proximal vessel occlusion within the head or neck.Electronically Signed By: Mora Rivas03/21/2023 13:51 CDTWorkstation Name: [id number] METER 2023-03-21 13:25:23 Test Item Value Reference Range Interpretation Comments POC-GLUCOSE METER 154 mg/dL 70-110 H : TESTED A T [facility] 6720 (BEAKER) (test code = [facility], 1538) 88635: Sheriff'S Sergeant/Techni britney ID = [id number] for KRISTAL HERRERA POCT-GLUCOSE [id number] 08:49:35 Test Item Value Reference Range Interpretation Comments POC-GLUCOSE METER 122 mg/dL 70-110 H : TESTED A T [facility] 6720 (BEAKER) (test code = [facility] [employer] [facility], 1538) 78857: Sheriff'S Sergeant/Techni britney ID = [id number] for KRISTAL HERRERA [id number] 04:30:30 Test Item Value Reference Range Interpretation Comments MAGNESIUM (BEAKER) (test code = 1.6 mg/dL 1.6-2.6 627) Sheriff'S Sergeant ID - BSBASIC METABOLIC [id number] 04:30:29 Test Item Value Reference Range Interpretation Comments SODIUM (BEAKER) 141 meq/L 136-145 (test code = 381) POTASSIUM 3.9 meq/L 3.5-5.1 (BEAKER) (test code = 379) CHLORIDE (BEAKER) 109 meq/L 98-107 H (test code = 382) CO2 (BEAKER) 23 meq/L 22-29 (test code = 355) BLOOD UREA 11 mg/dL 7-21 NITROGEN (BEAKER) (test code = 354) CREATININE 0.79 mg/dL 0.57-1.25 (BEAKER) (test code = 358) GLUCOSE RANDOM 132 mg/dL 70-105 H (BEAKER) (test code = 652) CALCIUM (BEAKER) 9.7 mg/dL 8.4-10.2 (test code = 697) EGFR (BEAKER) 75 Interpretatio n of eGFR (test code = mL/min/1.73 values Stage D escription 1092) sq m Result G1 Polina l or high >=90 G2 Mildly decreased 60-89 G3a Mildl y to moderately 45-5 9 G3b Moderately to s everely 30-44 G4 Severl y decreased 15-29 G5 Kidney failure <15Reported eGF R is based on the CKD-EPI 2020 equation that d oes not use a race coefficientEsti mated GFR is not as accur ate as Creatinine Mikaela krista in predicting glom erular filtration rate . 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 ID - BSCBC W/PLT COUNT & AUTO [id number] 04:06:01 Test Item Value Reference Range Interpretation Comments WHITE BLOOD CELL COUNT (BEAKER) 8.9 K/ L 3.5-10.5 (test code = 775) RED BLOOD CELL COUNT (BEAKER) 5.12 M/ L 3.93-5.22 (test code = 761) HEMOGLOBIN (BEAKER) (test code = 15.2 GM/DL 11.2-15.7 410) HEMATOCRIT (BEAKER) (test code = 44.0 % 34.1-44.9 411) MEAN CORPUSCULAR VOLUME (BEAKER) 86 fL 79-95 (test code = 753) MEAN CORPUSCULAR HEMOGLOBIN 29.7 pg 25.6-32.2 (BEAKER) (test code = 751) MEAN CORPUSCULAR HEMOGLOBIN CONC 34.5 GM/DL 32.2-35.5 (BEAKER) (test code = 752) RED CELL DISTRIBUTION WIDTH 14.4 % 11.7-14.4 (BEAKER) (test code = 412) PLATELET COUNT (BEAKER) (test 205 K/CU MM 150-450 code = 756) MEAN PLATELET VOLUME (BEAKER) 11.0 fL 9.4-12.3 (test code = 754) NUCLEATED RED BLOOD CELLS 0 /100 WBC 0-0 (BEAKER) (test code = 413) NEUTROPHILS RELATIVE PERCENT 75 % (BEAKER) (test code = 429) LYMPHOCYTES RELATIVE PERCENT 12 % (BEAKER) (test code = 430) MONOCYTES RELATIVE PERCENT 10 % (BEAKER) (test code = 431) EOSINOPHILS RELATIVE PERCENT 2 % (BEAKER) (test code = 432) BASOPHILS RELATIVE PERCENT 1 % (BEAKER) (test code = 437) NEUTROPHILS ABSOLUTE COUNT 6.69 K/ L 1.56-6.13 H (BEAKER) (test code = 670) LYMPHOCYTES ABSOLUTE COUNT 1.08 K/ L 1.18-3.74 L (BEAKER) (test code = 414) MONOCYTES ABSOLUTE COUNT (BEAKER) 0.87 K/ L 0.24-0.36 H (test code = 415) EOSINOPHILS ABSOLUTE COUNT 0.19 K/ L 0.04-0.36 (BEAKER) (test code = 416) BASOPHILS ABSOLUTE COUNT (BEAKER) 0.06 K/ L 0.01-0.08 (test code = 417) IMMATURE GRANULOCYTES-RELATIVE 0.30 % 0.00-1.00 PERCENT (BEAKER) (test code = 2801) POCT-GLUCOSE [id number] 22:29:44 Test Item Value Reference Range Interpretation Comments POC-GLUCOSE METER 126 mg/dL 70-110 H : TESTED A T [facility] 6720 (BEAKER) (test code = [facility], 153) 82001: Sheriff'S Sergeant/Techni britney ID = [id number] for PRATEEK MOY POCT-GLUCOSE [id number] 16:59:22 Test Item Value Reference Range Interpretation Comments POC-GLUCOSE METER 179 mg/dL 70-110 H : TESTED A T [facility] 6720 (BEAKER) (test code = [facility], 153) 35335: Sheriff'S Sergeant/Techni britney ID = [id number] for HI AMANGO, AGLAE Urinalysis w/[id number] 13:47:21 Test Item Value Reference Range Interpretation Comments Color, UA (test code Light Yellow = 5778-6) Clarity, UA (test Clear code = 5767-9) Specific Placedo, UA 1.014 1.001-1.035 (test code = 5811-5) pH, UA (test code = 7.5 5.0-8.0 5803-2) Protein, UA (test 300 mg/dL Negative A code = 59267-6) Glucose, UA (test 100 mg/dL Negative A code = 365) Ketones, UA (test Trace Negative A code = 2514-8) Bilirubin, UA (test Negative Negative code = 27065-8) Blood, UA (test code Negative Negative = 07267-8) Nitrite, UA (test Negative Negative code = 5802-4) Leukocytes, UA (test Negative Negative code = 5799-2) Urobilinogen, UA 0.2 0.2-1.0 (test code = 27658-3) RBC, UA (test code = 1 See_Comment [Autom ated 08580-3) message] The system which generated this result transmit juan reference range : /HPF. The reference range was not used to interpret this result as normal/abnormal . WBC, UA (test code = 2 See_Comment [Autom ated 5821-4) message] The system which generated this result transmit juan reference range : /HPF. The reference range was not used to interpret this result as normal/abnormal . Mucus (test code = Rare 8247-9) Squam Epithel, UA 1 See_Comment [Automate d (test code = 24534-8) messag e] The system which generated this result transmit juan reference range : /HPF. The reference range was not used to interpret this result as normal/abnormal . Hyaline Casts, UA 5 See_Comment [Automate d (test code = 78166-3) messag e] The system which generated this result transmit juan reference range : /LPF. The reference range was not used to interpret this result as normal/abnormal . Specimen Source (test Urine, Clean code = 2795) Catch DAREN (test code = DAREN) Sheriff'S Sergeant ID - [auto]Sheriff'S Sergeant ID - tech Lab Interpretation Abnormal (test code = 78626-3) [facility]/[id number] 13:47:21 Test Item Value Reference Range Interpretation Comments Color, UA (test code Light Yellow = 5778-6) Clarity, UA (test Clear code = 5767-9) Specific Placedo, UA 1.014 1.001-1.035 (test code = 5811-5) pH, UA (test code = 7.5 5.0-8.0 5803-2) Protein, UA (test 300 mg/dL Negative A code = 40275-0) Glucose, UA (test 100 mg/dL Negative A code = 365) Ketones, UA (test Trace Negative A code = 2514-8) Bilirubin, UA (test Negative Negative code = 50139-0) Blood, UA (test code Negative Negative = 20380-3) Nitrite, UA (test Negative Negative code = 5802-4) Leukocytes, UA (test Negative Negative code = 5799-2) Urobilinogen, UA 0.2 0.2-1.0 (test code = 27859-4) RBC, UA (test code = 1 See_Comment [Autom ated 08862-6) message] The system which generated this result transmit juan reference range : /HPF. The reference range was not used to interpret this result as normal/abnormal . WBC, UA (test code = 2 See_Comment [Autom ated 5821-4) message] The system which generated this result transmit juan reference range : /HPF. The reference range was not used to interpret this result as normal/abnormal . Mucus (test code = Rare 8247-9) Squam Epithel, UA 1 See_Comment [Automate d (test code = 58775-3) messag e] The system which generated this result transmit juan reference range : /HPF. The reference range was not used to interpret this result as normal/abnormal . Hyaline Casts, UA 5 See_Comment [Automate d (test code = 74484-8) messag e] The system which generated this result transmit juan reference range : /LPF. The reference range was not used to interpret this result as normal/abnormal . Specimen Source (test Urine, Clean code = 2795) Catch DAREN (test code = DAREN) Sheriff'S Sergeant ID - [auto]Sheriff'S Sergeant ID - tech Lab Interpretation Abnormal (test code = 03010-3) [facility]/[id number] 13:47:21 Test Item Value Reference Range Interpretation Comments Color, UA (test code Light Yellow = 5778-6) Clarity, UA (test Clear code = 5767-9) Specific Placedo, UA 1.014 1.001-1.035 (test code = 5811-5) pH, UA (test code = 7.5 5.0-8.0 5803-2) Protein, UA (test 300 mg/dL Negative A code = 34223-2) Glucose, UA (test 100 mg/dL Negative A code = 365) Ketones, UA (test Trace Negative A code = 2514-8) Bilirubin, UA (test Negative Negative code = 73935-2) Blood, UA (test code Negative Negative = 70011-8) Nitrite, UA (test Negative Negative code = 5802-4) Leukocytes, UA (test Negative Negative code = 5799-2) Urobilinogen, UA 0.2 0.2-1.0 (test code = 04254-6) RBC, UA (test code = 1 See_Comment [Autom ated 86019-2) message] The system which generated this result transmit juan reference range : /HPF. The reference range was not used to interpret this result as normal/abnormal . WBC, UA (test code = 2 See_Comment [Autom ated 5821-4) message] The system which generated this result transmit juan reference range : /HPF. The reference range was not used to interpret this result as normal/abnormal . Mucus (test code = Rare 8247-9) Squam Epithel, UA 1 See_Comment [Automate d (test code = 98682-8) messag e] The system which generated this result transmit juan reference range : /HPF. The reference range was not used to interpret this result as normal/abnormal . Hyaline Casts, UA 5 See_Comment [Automate d (test code = 69360-1) messag e] The system which generated this result transmit juan reference range : /LPF. The reference range was not used to interpret this result as normal/abnormal . Specimen Source (test Urine, Clean code = 2795) Catch DAREN (test code = DAREN) Sheriff'S Sergeant ID - [auto]Sheriff'S Sergeant ID - tech Lab Interpretation Abnormal (test code = 33296-8) [facility] w/[id number] 13:47:21 Test Item Value Reference Range Interpretation Comments Color, UA (test code Light Yellow = 5778-6) Clarity, UA (test Clear code = 5767-9) Specific Placedo, UA 1.014 1.001-1.035 (test code = 5811-5) pH, UA (test code = 7.5 5.0-8.0 5803-2) Protein, UA (test 300 mg/dL Negative A code = 77918-4) Glucose, UA (test 100 mg/dL Negative A code = 365) Ketones, UA (test Trace Negative A code = 2514-8) Bilirubin, UA (test Negative Negative code = 42394-9) Blood, UA (test code Negative Negative = 20801-8) Nitrite, UA (test Negative Negative code = 5802-4) Leukocytes, UA (test Negative Negative code = 5799-2) Urobilinogen, UA 0.2 0.2-1.0 (test code = 22356-7) RBC, UA (test code = 1 See_Comment [Autom ated 35337-4) message] The system which generated this result transmit juan reference range : /HPF. The reference range was not used to interpret this result as normal/abnormal . WBC, UA (test code = 2 See_Comment [Autom ated 5821-4) message] The system which generated this result transmit juan reference range : /HPF. The reference range was not used to interpret this result as normal/abnormal . Mucus (test code = Rare 8247-9) Squam Epithel, UA 1 See_Comment [Automate d (test code = 11725-7) messag e] The system which generated this result transmit juan reference range : /HPF. The reference range was not used to interpret this result as normal/abnormal . Hyaline Casts, UA 5 See_Comment [Automate d (test code = 48431-5) messag e] The system which generated this result transmit juan reference range : /LPF. The reference range was not used to interpret this result as normal/abnormal . Specimen Source (test Urine, Clean code = 2795) Catch DAREN (test code = DAREN) Sheriff'S Sergeant ID - [auto]Sheriff'S Sergeant ID - tech Lab Interpretation Abnormal (test code = 76388-7) [facility] w/[id number] 13:47:21 Test Item Value Reference Range Interpretation Comments Color, UA (test code Light Yellow = 5778-6) Clarity, UA (test Clear code = 5767-9) Specific Placedo, UA 1.014 1.001-1.035 (test code = 5811-5) pH, UA (test code = 7.5 5.0-8.0 5803-2) Protein, UA (test 300 mg/dL Negative A code = 58381-1) Glucose, UA (test 100 mg/dL Negative A code = 365) Ketones, UA (test Trace Negative A code = 2514-8) Bilirubin, UA (test Negative Negative code = 24242-0) Blood, UA (test code Negative Negative = 90500-2) Nitrite, UA (test Negative Negative code = 5802-4) Leukocytes, UA (test Negative Negative code = 5799-2) Urobilinogen, UA 0.2 0.2-1.0 (test code = 90167-9) RBC, UA (test code = 1 See_Comment [Autom ated 85682-6) message] The system which generated this result transmit juan reference range : /HPF. The reference range was not used to interpret this result as normal/abnormal . WBC, UA (test code = 2 See_Comment [Autom ated 5821-4) message] The system which generated this result transmit juan reference range : /HPF. The reference range was not used to interpret this result as normal/abnormal . Mucus (test code = Rare 8247-9) Squam Epithel, UA 1 See_Comment [Automate d (test code = 23043-7) messag e] The system which generated this result transmit juan reference range : /HPF. The reference range was not used to interpret this result as normal/abnormal . Hyaline Casts, UA 5 See_Comment [Automate d (test code = 91555-2) messag e] The system which generated this result transmit juan reference range : /LPF. The reference range was not used to interpret this result as normal/abnormal . Specimen Source (test Urine, Clean code = 2795) Catch DAREN (test code = DAREN) Sheriff'S Sergeant ID - [auto]Sheriff'S Sergeant ID - tech Lab Interpretation Abnormal (test code = 86310-9) [facility] w/[id number] 13:47:21 Test Item Value Reference Range Interpretation Comments Color, UA (test code Light Yellow = 5778-6) Clarity, UA (test Clear code = 5767-9) Specific Placedo, UA 1.014 1.001-1.035 (test code = 5811-5) pH, UA (test code = 7.5 5.0-8.0 5803-2) Protein, UA (test 300 mg/dL Negative A code = 75045-5) Glucose, UA (test 100 mg/dL Negative A code = 365) Ketones, UA (test Trace Negative A code = 2514-8) Bilirubin, UA (test Negative Negative code = 08790-9) Blood, UA (test code Negative Negative = 77172-6) Nitrite, UA (test Negative Negative code = 5802-4) Leukocytes, UA (test Negative Negative code = 5799-2) Urobilinogen, UA 0.2 0.2-1.0 (test code = 45833-4) RBC, UA (test code = 1 See_Comment [Autom ated 52717-4) message] The system which generated this result transmit juan reference range : /HPF. The reference range was not used to interpret this result as normal/abnormal . WBC, UA (test code = 2 See_Comment [Autom ated 5821-4) message] The system which generated this result transmit juan reference range : /HPF. The reference range was not used to interpret this result as normal/abnormal . Mucus (test code = Rare 8247-9) Squam Epithel, UA 1 See_Comment [Automate d (test code = 11369-3) messag e] The system which generated this result transmit juan reference range : /HPF. The reference range was not used to interpret this result as normal/abnormal . Hyaline Casts, UA 5 See_Comment [Automate d (test code = 27066-0) messag e] The system which generated this result transmit juan reference range : /LPF. The reference range was not used to interpret this result as normal/abnormal . Specimen Source (test Urine, Clean code = 2795) Catch DAREN (test code = DAREN) Sheriff'S Sergeant ID - [auto]Sheriff'S Sergeant ID - tech Lab Interpretation Abnormal (test code = 17063-0) [facility]/[id number] 13:47:21 Test Item Value Reference Range Interpretation Comments Color, UA (test code Light Yellow = 5778-6) Clarity, UA (test Clear code = 5767-9) Specific Placedo, UA 1.014 1.001-1.035 (test code = 5811-5) pH, UA (test code = 7.5 5.0-8.0 5803-2) Protein, UA (test 300 mg/dL Negative A code = 10287-7) Glucose, UA (test 100 mg/dL Negative A code = 365) Ketones, UA (test Trace Negative A code = 2514-8) Bilirubin, UA (test Negative Negative code = 40502-8) Blood, UA (test code Negative Negative = 92656-7) Nitrite, UA (test Negative Negative code = 5802-4) Leukocytes, UA (test Negative Negative code = 5799-2) Urobilinogen, UA 0.2 0.2-1.0 (test code = 24768-4) RBC, UA (test code = 1 See_Comment [Autom ated 45425-2) message] The system which generated this result transmit juan reference range : /HPF. The reference range was not used to interpret this result as normal/abnormal . WBC, UA (test code = 2 See_Comment [Autom ated 5821-4) message] The system which generated this result transmit juan reference range : /HPF. The reference range was not used to interpret this result as normal/abnormal . Mucus (test code = Rare 8247-9) Squam Epithel, UA 1 See_Comment [Automate d (test code = 29154-9) messag e] The system which generated this result transmit juan reference range : /HPF. The reference range was not used to interpret this result as normal/abnormal . Hyaline Casts, UA 5 See_Comment [Automate d (test code = 32383-9) messag e] The system which generated this result transmit juan reference range : /LPF. The reference range was not used to interpret this result as normal/abnormal . Specimen Source (test Urine, Clean code = 2795) Catch DAREN (test code = DAREN) Sheriff'S Sergeant ID - [auto]Sheriff'S Sergeant ID - tech Lab Interpretation Abnormal (test code = 06293-8) [facility]/ [id number] 13:47:21 Test Item Value Reference Range Interpretation Comments COLOR (BEAKER) (test code Light Yellow = 470) CLARITY (BEAKER) (test Clear code = 469) SPECIFIC GRAVITY UA 1.014 1.001-1.035 (BEAKER) (test code = 468) PH UA (BEAKER) (test code 7.5 5.0-8.0 = 467) PROTEIN UA (BEAKER) (test 300 mg/dL Negative A code = 464) GLUCOSE UA (BEAKER) (test 100 mg/dL Negative A code = 365) KETONES UA (BEAKER) (test Trace Negative A code = 371) BILIRUBIN UA (BEAKER) Negative Negative (test code = 462) BLOOD UA (BEAKER) (test Negative Negative code = 461) NITRITE UA (BEAKER) (test Negative Negative code = 465) LEUKOCYTE ESTERASE UA Negative Negative (BEAKER) (test code = 466) UROBILINOGEN UA (BEAKER) 0.2 0.2-1.0 (test code = 463) RBC UA (BEAKER) (test code 1 /HPF = 519) WBC UA (BEAKER) (test code 2 /HPF = 520) MUCUS (BEAKER) (test code Rare = 1574) SQUAMOUS EPITHELIAL 1 /HPF (BEAKER) (test code = 516) HYALINE CASTS (BEAKER) 5 /LPF (test code = 514) SOURCE(BEAKER) (test code Urine, Clean Catch = 2795) Sheriff'S Sergeant ID - [auto]Sheriff'S Sergeant ID - techXR CHEST 1 VIEW PORTABLE / BEDSIDE 2023-03-20 12:55:26 [facility] 1940 Sex: FXR CHEST 1 VIEW PORTABLE / BEDSIDEINDICATION: sobCOMPARISON: NoneFINDINGS: Portable frontal view of the chest. IMPRESSION:Support Lines: None Lungs and pleura: Lungs are clear. No large effusion. No pneumothorax.Heart and mediastinum: Unremarkable for AP technique. Additional findings: Left shoulder arthroplasty changes present.Electronically Signed By: Zhang Joya03/20/2023 12:57 CDTWorkstation Name:[id number] 12:25:24 Test Item Value Reference Range Interpretation Comments POC-GLUCOSE METER 180 mg/dL 70-110 H : TESTED A T [facility] 6720 (BEAKER) (test code = SOFIA [facility], 1538) [address]: Sheriff'S Sergeant/Techni britney ID = [id number] for JEFERSON MORENO CT BRAIN WITHOUT IV [id number] 10:21:42 [facility] : 1940 Sex: FCT BRAIN WITHOUT IV CONTRASTCLINICAL INDICATION: Stroke suspected (Ped 0-18y)COMPARISON: NoneTECHNIQUE: Noncontrast axial CT imaging of the brain and skull. Cor[place]and sagittal reformats are provided.DOSE REDUCTION: Dose modulation, iterative reconstruction, and/orweight-based adjustment of the mA/kV was utilized to reduce theradiation dose to as low as reasonably achievable.FINDINGS:No intracranial hemorrhage, midline shift or mass effect. Midlinestructures are normally developed. Hypoattenuation within theperiventricular and subcortical white matter is present, nonspecific byimaging, however, statistically representing chronic microvascularchanges in this age group. Diffuse senescent parenchymal volume loss.Chronic lacunar infarct in the right cerebellar hemisphere.No hydrocephalus.Atherosclerotic calcification of the intracranial internal carotid andvertebral arteries. Orbits are within normal limits. No obstructive paranasal sinus disease.IMPRESSION:1. No acute intracranial findings2. Chronic lacunar infarct in the right cerebellar hemisphere.If there is persistent clinical concern for intracranial pathology, Michelle be considered for further characterization. Electronically Signed By: Davidson Short 10:23 CDTWorkstation Name: [id number] METER 2023-03-20 07:44:14 Test Item Value Reference Range Interpretation Comments POC-GLUCOSE METER 169 mg/dL 70-110 H : TESTED A T [facility] 6720 (BEAKER) (test code = SO[facility], 1538) [address]: Sheriff'S Sergeant/Techni britney ID = [id number] for Svetlana Myers [id number] 07:27:55 Test Item Value Reference Range Interpretation Comments MAGNESIUM (BEAKER) (test code = 1.5 mg/dL 1.6-2.6 L 627) BASIC METABOLIC [id number] 07:27:55 Test Item Value Reference Range Interpretation Comments SODIUM (BEAKER) 145 meq/L 136-145 (test code = 381) POTASSIUM 3.7 meq/L 3.5-5.1 (BEAKER) (test code = 379) CHLORIDE (BEAKER) 112 meq/L 98-107 H (test code = 382) CO2 (BEAKER) 26 meq/L 22-29 (test code = 355) BLOOD UREA 10 mg/dL 7-21 NITROGEN (BEAKER) (test code = 354) CREATININE 1.02 mg/dL 0.57-1.25 (BEAKER) (test code = 358) GLUCOSE RANDOM 139 mg/dL 70-105 H (BEAKER) (test code = 652) CALCIUM (BEAKER) 9.4 mg/dL 8.4-10.2 (test code = 697) EGFR (BEAKER) 55 Interpretatio n of eGFR (test code = mL/min/1.73 values Stage De scription 1092) sq m Result G1 Polina l or high >=90 G2 Mildly decreased 60-89 G3a Mildl y to moderately 45-5 9 G3b Moderately to s everely 30-44 G4 Severl y decreased 15-29 G5 Kidney failure <15Reported eGF R is based on the CKD-EPI 2020 equation that d oes not use a race coefficientEsti mated GFR is not as accur ate as Creatinine Mikaela krista in predicting glom erular filtration rate . Estimated GFR is not appl icable for dialysis patien ts CBC W/PLT COUNT & AUTO [id number] 04:39:39 Test Item Value Reference Range Interpretation Comments WHITE BLOOD CELL COUNT (BEAKER) 7.1 K/ L 3.5-10.5 (test code = 775) RED BLOOD CELL COUNT (BEAKER) 4.55 M/ L 3.93-5.22 (test code = 761) HEMOGLOBIN (BEAKER) (test code = 13.2 GM/DL 11.2-15.7 410) HEMATOCRIT (BEAKER) (test code = 40.1 % 34.1-44.9 411) MEAN CORPUSCULAR VOLUME (BEAKER) 88 fL 79-95 (test code = 753) MEAN CORPUSCULAR HEMOGLOBIN 29.0 pg 25.6-32.2 (BEAKER) (test code = 751) MEAN CORPUSCULAR HEMOGLOBIN CONC 32.9 GM/DL 32.2-35.5 (BEAKER) (test code = 752) RED CELL DISTRIBUTION WIDTH 13.9 % 11.7-14.4 (BEAKER) (test code = 412) PLATELET COUNT (BEAKER) (test 226 K/CU MM 150-450 code = 756) MEAN PLATELET VOLUME (BEAKER) 11.1 fL 9.4-12.3 (test code = 754) NUCLEATED RED BLOOD CELLS 0 /100 WBC 0-0 (BEAKER) (test code = 413) NEUTROPHILS RELATIVE PERCENT 65 % (BEAKER) (test code = 429) LYMPHOCYTES RELATIVE PERCENT 19 % (BEAKER) (test code = 430) MONOCYTES RELATIVE PERCENT 12 % (BEAKER) (test code = 431) EOSINOPHILS RELATIVE PERCENT 4 % (BEAKER) (test code = 432) BASOPHILS RELATIVE PERCENT 1 % (BEAKER) (test code = 437) NEUTROPHILS ABSOLUTE COUNT 4.59 K/ L 1.56-6.13 (BEAKER) (test code = 670) LYMPHOCYTES ABSOLUTE COUNT 1.32 K/ L 1.18-3.74 (BEAKER) (test code = 414) MONOCYTES ABSOLUTE COUNT (BEAKER) 0.83 K/ L 0.24-0.36 H (test code = 415) EOSINOPHILS ABSOLUTE COUNT 0.27 K/ L 0.04-0.36 (BEAKER) (test code = 416) BASOPHILS ABSOLUTE COUNT (BEAKER) 0.04 K/ L 0.01-0.08 (test code = 417) IMMATURE GRANULOCYTES-RELATIVE 0.30 % 0.00-1.00 PERCENT (BEAKER) (test code = 2801) POCT-GLUCOSE [id number] 20:45:24 Test Item Value Reference Range Interpretation Comments POC-GLUCOSE METER 161 mg/dL 70-110 H : TESTED A T [facility] 6720 (BEAKER) (test code = [facility], 1538) [address]: Sheriff'S Sergeant/Techni britney ID = [id number] for PRATEEK MOY POCT-GLUCOSE [id number] 17:09:42 Test Item Value Reference Range Interpretation Comments POC-GLUCOSE METER 80 mg/dL 70-110 : TESTED A T [facility] 6720 (BEAKER) (test code = [facility], 1538) [address]: Sheriff'S Sergeant/Techni britney ID = [id number] for Amad or, Rafael BASIC METABOLIC [id number] 13:14:47 Test Item Value Reference Range Interpretation Comments SODIUM (BEAKER) 140 meq/L 136-145 (test code = 381) POTASSIUM 3.8 meq/L 3.5-5.1 (BEAKER) (test code = 379) CHLORIDE (BEAKER) 110 meq/L 98-107 H (test code = 382) CO2 (BEAKER) 22 meq/L 22-29 (test code = 355) BLOOD UREA 12 mg/dL 7-21 NITROGEN (BEAKER) (test code = 354) CREATININE 0.77 mg/dL 0.57-1.25 (BEAKER) (test code = 358) GLUCOSE RANDOM 127 mg/dL 70-105 H (BEAKER) (test code = 652) CALCIUM (BEAKER) 8.5 mg/dL 8.4-10.2 (test code = 697) EGFR (BEAKER) 77 Interpretatio n of eGFR (test code = mL/min/1.73 values Stage D escription 1092) sq m Result G1 Polina l or high >=90 G2 Mildly decreased 60-89 G3a Mildl y to moderately 45-5 9 G3b Moderately to s everely 30-44 G4 Severl y decreased 15-29 G5 Kidney failure <15Reported eGF R is based on the CKD-EPI 2020 equation that d oes not use a race coefficientEsti mated GFR is not as accur ate as Creatinine Mikaela krista in predicting glom erular filtration rate . 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 ID - [id number] 13:14:47 Test Item Value Reference Range Interpretation Comments MAGNESIUM (BEAKER) (test code = 2.1 mg/dL 1.6-2.6 627) Sheriff'S Sergeant ID - [id number] 12:55:18 Test Item Value Reference Range Interpretation Comments RPR SCREEN (FemasysAKER) (test code = Nonreactive Nonreactive 420) HEMOGLOBIN [id number] 12:29:58 Test Item Value Reference Range Interpretation Comments HEMOGLOBIN A1C 6.5 % See_Comment H [Automated m essage] ELECTROPHORESIS ([employer]) The system which (test code = 3811) generated this result transmitted ref erence range: <=5.6%. The reference range was not used to int erpret this result as normal/abnormal . "The A1c is measured using a NGSP-certified method. HbA1c value equal to or greater than 6.5% as thediagnosis cutoff for diabetes. An HbA1c value of 5.7- 6.4% indicates increased risk for diabetes (prediabetes)."Sheriff'S Sergeant ID - ADMOperator ID - ADMPOCT-GLUCOSE [id number] 11:19:20 Test Item Value Reference Range Interpretation Comments POC-GLUCOSE METER 82 mg/dL 70-110 : TESTED A T [facility] 6720 ([employer]) (test code = [facility], 1538) [address]: Sheriff'S Sergeant/Techni britney ID = [id number] for Amad or, Rafael POCT-GLUCOSE [id number] 08:36:28 Test Item Value Reference Range Interpretation Comments POC-GLUCOSE METER 79 mg/dL 70-110 : TESTED A T [facility] 6720 (BEAKER) (test code = [facility], 1538) [address]: Sheriff'S Sergeant/Techni britney ID = [id number] for Amad or, Rafael [id number] 05:07:43 Test Item Value Reference Range Interpretation Comments MAGNESIUM (BEAKER) (test code = 1.0 mg/dL 1.6-2.6 LL 627) Sheriff'S Sergeant ID Xavier THIBODEAUX WBASIC METABOLIC [id number] 04:41:48 Test Item Value Reference Range Interpretation Comments SODIUM (BEAKER) 140 meq/L 136-145 (test code = 381) POTASSIUM 3.3 meq/L 3.5-5.1 L (BEAKER) (test code = 379) CHLORIDE (BEAKER) 108 meq/L 98-107 H (test code = 382) CO2 (BEAKER) 22 meq/L 22-29 (test code = 355) BLOOD UREA 16 mg/dL 7-21 NITROGEN (BEAKER) (test code = 354) CREATININE 0.86 mg/dL 0.57-1.25 (BEAKER) (test code = 358) GLUCOSE RANDOM 70 mg/dL 70-105 (BEAKER) (test code = 652) CALCIUM (BEAKER) 9.0 mg/dL 8.4-10.2 (test code = 697) EGFR (BEAKER) 68 Interpretatio n of eGFR (test code = mL/min/1.73 values Stage De scription 1092) sq m Result G1 Polina l or high >=90 G2 Mildly decreased 60-89 G3a Mildl y to moderately 45-5 9 G3b Moderately to s everely 30-44 G4 Severl y decreased 15-29 G5 Kidney failure <15Reported eGF R is based on the CKD-EPI 2020 equation that d oes not use a race coefficientEsti mated GFR is not as accur ate as Creatinine Mikaela velasco in predicting glom erular filtration rate . 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 ID Xavier THIBODEAUX WVITAMIN [id number] 04:08:22 Test Item Value Reference Range Interpretation Comments VITAMIN B12 (BEAKER) (test code = 307 pg/mL 213-816 774) Sheriff'S Sergeant ID - CARLOS EDUARDO WTSH/FREE T4 IF [id number] 04:08:22 Test Item Value Reference Range Interpretation Comments THYROID STIMULATING HORMONE 2.177 uIU/mL 0.350-4.940 (BEAKER) (test code = 772) Sheriff'S Sergeant ID - CARLOS EDUARDO WKETONE, [id number] 04:01:33 Test Item Value Reference Range Interpretation Comments KETONES, BLOOD (BEAKER) (test code 0.1 mmol/L <0.4 = 1103) CBC W/PLT COUNT & AUTO [id number] 03:57:21 Test Item Value Reference Range Interpretation Comments WHITE BLOOD CELL COUNT (BEAKER) 7.4 K/ L 3.5-10.5 (test code = 775) RED BLOOD CELL COUNT (BEAKER) 4.08 M/ L 3.93-5.22 (test code = 761) HEMOGLOBIN (BEAKER) (test code = 11.6 GM/DL 11.2-15.7 410) HEMATOCRIT (BEAKER) (test code = 36.4 % 34.1-44.9 411) MEAN CORPUSCULAR VOLUME (BEAKER) 89 fL 79-95 (test code = 753) MEAN CORPUSCULAR HEMOGLOBIN 28.4 pg 25.6-32.2 (BEAKER) (test code = 751) MEAN CORPUSCULAR HEMOGLOBIN CONC 31.9 GM/DL 32.2-35.5 L (BEAKER) (test code = 752) RED CELL DISTRIBUTION WIDTH 14.2 % 11.7-14.4 (BEAKER) (test code = 412) PLATELET COUNT (BEAKER) (test 201 K/CU MM 150-450 code = 756) MEAN PLATELET VOLUME (BEAKER) 11.1 fL 9.4-12.3 (test code = 754) NUCLEATED RED BLOOD CELLS 0 /100 WBC 0-0 (BEAKER) (test code = 413) NEUTROPHILS RELATIVE PERCENT 56 % (BEAKER) (test code = 429) LYMPHOCYTES RELATIVE PERCENT 29 % (BEAKER) (test code = 430) MONOCYTES RELATIVE PERCENT 10 % (BEAKER) (test code = 431) EOSINOPHILS RELATIVE PERCENT 4 % (BEAKER) (test code = 432) BASOPHILS RELATIVE PERCENT 1 % (BEAKER) (test code = 437) NEUTROPHILS ABSOLUTE COUNT 4.11 K/ L 1.56-6.13 (BEAKER) (test code = 670) LYMPHOCYTES ABSOLUTE COUNT 2.14 K/ L 1.18-3.74 (BEAKER) (test code = 414) MONOCYTES ABSOLUTE COUNT (BEAKER) 0.75 K/ L 0.24-0.36 H (test code = 415) EOSINOPHILS ABSOLUTE COUNT 0.28 K/ L 0.04-0.36 (BEAKER) (test code = 416) BASOPHILS ABSOLUTE COUNT (BEAKER) 0.05 K/ L 0.01-0.08 (test code = 417) IMMATURE GRANULOCYTES-RELATIVE 0.30 % 0.00-1.00 PERCENT (BEAKER) (test code = 2801) HIV-1 ANTIGEN WITH HIV-1/2 [id number] 02:15:23 Test Item Value Reference Range Interpretation Comments HIV-1 ANTIGEN WITH HIV 1\\T\\2 Nonreactive Nonreactive ANTIBODY (2) ([facility]) (test code = 2586) Sheriff'S Sergeant ID - LONNIE BLIPID [id number] 01:04:20 Test Item Value Reference Range Interpretation Comments TRIGLYCERIDES (AKER) 95 mg/dL Speci men slightly (test code = 540) hemolyzed CHOLESTEROL (BEAKER) 86 mg/dL Specime n slightly (test code = 631) hemolyzed HDL CHOLESTEROL (AKER) 37 mg/dL (test code = 976) LDL CHOLESTEROL 30 mg/dL CALCULATED ([facility]) (test code = 633) Triglyceride Reference Range: Low Risk <150 Borderline 150-199 High Risk 200- 499 Very High Risk >=500Cholesterol Reference Range: Low Risk <200 Borderline 200-239 High Risk >240HDL Cholesterol Reference Range: Low Risk >=60 High Risk <40LDL Cholesterol Reference Range: Optimal <100 Near Optimal 100-129 Borderline 130-159 High 160-189 Very High >=190 Sheriff'S Sergeant ID - LONNIE BC-REACTIVE [id number] 01:04:20 Test Item Value Reference Range Interpretation Comments C-REACTIVE PROTEIN (AKER) (test 0.08 mg/dL 0.00-0.50 code = 676) Sheriff'S Sergeant ID - LONNIE BGlucose [Mass/volume] in Capillary [id number] 09:12:48 Test Item Value Reference Range Interpretation Comments Blood Glucose: mg/dl (test code = Blood 158 Glucose: mg/dl) [facility] PracticeGl[facility] [Mass/volume] in Capillary [id number] 12:12:08 Test Item Value Reference Range Interpretation Comments Blood Glucose: mg/dl (test code = Blood 144 Glucose: mg/dl) [facility] [id number] 11:16:24 Test Item Value Reference Range Interpretation Comments Blood Glucose: mg/dl (test code = Blood 286 Glucose: mg/dl) [facility] [[facility]/volume] in Capillary [id number] 14:52:13 Test Item Value Reference Range Interpretation Comments Blood Glucose: mg/dl (test code = Blood 243 Glucose: mg/dl) [facility]- XR FLUORO FOR SPINE [id number] 18:07:00 [facility] 1940 Sex: F Patient Name: AMANDA NDIAYE Unit No: [id number] EXAMS: CPT CODE: [id number] XR FLUORO FOR SPINE INJ 54016 LUMBAR EPIRADICULAR INJECTION REFERRAL PHYSICIAN: Dr. [place] [...] and signed by: BRANDIN CLARK MD CC: Phlilip Castaneda MD Technologist: MICHELL SOTO (RT.R) Transcribed D/ (1806) [facility] [place] NAME: AMANDA NDIAYE [address] [facility] PHYS: Phillip Ladd MD [place] [address] : 1940 AGE: 81 SEX: F LOC: CHON PHONE #: [phone] EXAM DATE: 12/16/2021 STATUS: [facility] FAX #: [phone] RAD #: [id number] D/C DT PAGE 1 Signed Report Patient Name: AMANDA NDIAYE Unit No: [id number] EXAMS: CPT CODE: [id number] XR FLUORO FOR SPINE INJ 47134 (Continued) Orig Print D/T: S: 12/23/2021 (1809) [facility] [place] NAME: [facility] [address] [facility] Phillip Ladd MD [place] [address] : 1940 AGE: 81 SEX: F LOC: CHON PHONE #: [phone] EXAM DATE: 12/16/2021 STATUS: [facility] FAX #: [phone] RAD #: [id number] D/C DT PAGE 2 Signed ReportGlucose [Mass/volume] in Capillary [id number] 08:37:03 Test Item Value Reference Range Interpretation Comments Blood Glucose: mg/dl (test code = Blood 220 Glucose: mg/dl) [facility] [id number] 14:01:00 Test Item Value Reference Range Interpretation Comments GLUBED (test code = GLUBED) 144 mg/dL 60-125 H [id number] 12:03:00 Test Item Value Reference Range Interpretation Comments GLUBED (test code = GLUBED) 138 mg/dL 60-125 H Hemoglobin A1c measurement device [id number] 14:11:19 Test Item Value Reference Range Interpretation Comments Hemoglobin A1C Fingerstick: (test code 7.2 = Hemoglobin A1C Fingerstick:) [facility] [Mass/volume] in Capillary [id number] 14:04:17 Test Item Value Reference Range Interpretation Comments Blood Glucose: mg/dl (test code = Blood 190 Glucose: mg/dl) [facility] [Mass/volume] in Capillary [id number] 13:54:58 Test Item Value Reference Range Interpretation Comments Blood Glucose: mg/dl (test code = Blood 167 Glucose: mg/dl) [facility] HospitalHemoglobin A1c measurement device [id number] 12:17:07 Test Item Value Reference Range Interpretation Comments Hemoglobin A1C Fingerstick: (test code 8.4 = Hemoglobin A1C Fingerstick:) [facility]Gl[facility] [Mass/volume] in Capillary [id number] 12:14:41 Test Item Value Reference Range Interpretation Comments Blood Glucose: mg/dl (test code = Blood 212 Glucose: mg/dl) [facility] HospitalCHEM [id number] 09:05:00 Test Item Value Reference Range Interpretation Comments Magnesium Lvl (test code = Magnesium 1.8 1.8-2.4 Lvl) [facility] [id number] 09:05:00 Test Item Value Reference Range Interpretation Comments Phosphorus (test code = Phosphorus) 2.4 2.5-4.5 [facility] [id number] 09:05:00 Test Item Value Reference Range Interpretation Comments CO2 (test code = CO2) 30 24-32 [facility] [id number] 09:05:00 Test Item Value Reference Range Interpretation Comments Glucose Lvl (test code = Glucose Lvl) 240 70-99 [facility] [employer] [id number] 09:05:00 Test Item Value Reference Range Interpretation Comments Creatinine Lvl (test code = Creatinine 0.80 0.50-1.40 Lvl) [facility]2016-08-01 09:05:00 Test Item Value Reference Range Interpretation Comments BUN (test code = BUN) 20 7-22 [facility]2016-08-01 09:05:00 Test Item Value Reference Range Interpretation Comments eGFR (test code = eGFR) 73 [facility]2016-08-01 09:05:00 Test Item Value Reference Range Interpretation Comments Albumin Lvl (test code = Albumin Lvl) 2.8 3.5-5.0 [facility]2016-08-01 09:05:00 Test Item Value Reference Range Interpretation Comments Calcium Lvl (test code = Calcium Lvl) 10.5 8.5-10.5 [facility]2016-08-01 09:05:00 Test Item Value Reference Range Interpretation Comments Potassium Lvl (test code = Potassium 4.3 3.5-5.1 Lvl) [facility]2016-08-01 09:05:00 Test Item Value Reference Range Interpretation Comments Chloride Lvl (test code = Chloride Lvl) 107 95-109 [facility]2016-08-01 09:05:00 Test Item Value Reference Range Interpretation Comments Sodium Lvl (test code = Sodium Lvl) 143 135-145 [facility]2016-08-01 09:05:00 Test Item Value Reference Range Interpretation Comments AGAP (test code = AGAP) 10.3 10.0-20.0 [id number] 09:05:00 Test Item Value Reference Range Interpretation Comments Lymphocytes # (test code = Lymphocytes 1.3 1.0-5.5 #) [facility] H[id number] 09:05:00 Test Item Value Reference Range Interpretation Comments Segs-Bands # (test code = Segs-Bands #) 4.4 1.5-8.1 [facility] H[id number] 09:05:00 Test Item Value Reference Range Interpretation Comments Eosinophils # (test code = Eosinophils 0.3 <=0.5 #) [facility] Hos[id number] 09:05:00 Test Item Value Reference Range Interpretation Comments Monocytes # (test code = Monocytes #) 0.6 <=0.8 [place] [address]-08-01 09:05:00 Test Item Value Reference Range Interpretation Comments Basophils (test code = Basophils) 0.5 <=1.0 [facility] Hospit[id number] 09:05:00 Test Item Value Reference Range Interpretation Comments Eosinophils (test code = Eosinophils) 4.9 <=4.0 [facility] Hos[id number] 09:05:00 Test Item Value Reference Range Interpretation Comments Monocytes (test code = Monocytes) 9.1 2.0-12.0 [facility] HospitalTbxnvexJYEYDWYPLJ6931-90-35 09:05:00 Test Item Value Reference Range Interpretation Comments Lymphocytes (test code = Lymphocytes) 18.9 20.0-40.0 [facility] Hos[id number] 09:05:00 Test Item Value Reference Range Interpretation Comments Segs (test code = Segs) 66.6 45.0-75.0 [facility] HospitalTwgkngfIOKRQRACGV5826-69-01 09:05:00 Test Item Value Reference Range Interpretation Comments MPV (test code = MPV) 9.4 7.4-10.4 [facility] Hospit[id number] 09:05:00 Test Item Value Reference Range Interpretation Comments Platelet (test code = Platelet) 168 133-450 [facility] HospitalIgccihgOPPSKTUVSZ7866-54-44 09:05:00 Test Item Value Reference Range Interpretation Comments RDW (test code = RDW) 13.4 11.5-14.5 [facility] Hos[id number] 09:05:00 Test Item Value Reference Range Interpretation Comments MCHC (test code = MCHC) 32.8 32.0-36.0 [facility] HospitalWueuhcbUDDYXPDCAY3575-18-19 09:05:00 Test Item Value Reference Range Interpretation Comments MCH (test code = MCH) 30.7 pg 27.0-31.0 [facility] HospitalZgdlvuhWVFQQIEERE7980-43-03 09:05:00 Test Item Value Reference Range Interpretation Comments MCV (test code = MCV) 93.6 80.0-98.0 [facility] HospitalRiejhcmEILAHWDTTS1741-17-95 09:05:00 Test Item Value Reference Range Interpretation Comments WBC (test code = WBC) 6.6 3.7-10.4 [facility] HospitalFnzuforYOQHXHLLIT8520-93-21 09:05:00 Test Item Value Reference Range Interpretation Comments Hct (test code = Hct) 41.0 36.0-48.0 [facility] HospitalXxgjugsJVWKLPUSDJ1917-67-20 09:05:00 Test Item Value Reference Range Interpretation Comments Hgb (test code = Hgb) 13.4 12.0-16.0 [facility]xt[facility]vhUGSXAHYFVD7654-05-91 09:05:00 Test Item Value Reference Range Interpretation Comments RBC (test code = RBC) 4.38 4.20-5.40 [facility] [id number] 09:05:00 Test Item Value Reference Range Interpretation Comments Hgb A1C (test code = Hgb A1C) 10.3 [facility] [id number] 09:17:00 Test Item Value Reference Range Interpretation Comments eGFR (test code = eGFR) 81 [facility]2016-07-30 09:17:00 Test Item Value Reference Range Interpretation Comments Creatinine Lvl (test code = Creatinine 0.73 0.50-1.40 Lvl) [facility]2016-07-30 09:17:00 Test Item Value Reference Range Interpretation Comments AST (test code = AST) 7 <=37 [facility]2016-07-30 09:17:00 Test Item Value Reference Range Interpretation Comments Total Protein (test code = Total 5.0 6.4-8.4 Protein) [facility]2016-07-30 09:17:00 Test Item Value Reference Range Interpretation Comments Alk Phos (test code = Alk Phos) 73 39-136 [facility]2016-07-30 09:17:00 Test Item Value Reference Range Interpretation Comments ALT (test code = ALT) 29 <=65 [facility]2016-07-30 09:17:00 Test Item Value Reference Range Interpretation Comments Bili Total (test code = Bili Total) 0.7 0.2-1.3 [facility]2016-07-30 09:17:00 Test Item Value Reference Range Interpretation Comments Albumin Lvl (test code = Albumin Lvl) 2.7 3.5-5.0 [facility]2016-07-30 09:17:00 Test Item Value Reference Range Interpretation Comments AGAP (test code = AGAP) 10.9 10.0-20.0 [facility]2016-07-30 09:17:00 Test Item Value Reference Range Interpretation Comments Calcium Lvl (test code = Calcium Lvl) 10.0 8.5-10.5 [facility]2016-07-30 09:17:00 Test Item Value Reference Range Interpretation Comments Glucose Lvl (test code = Glucose Lvl) 208 70-99 [facility]2016-07-30 09:17:00 Test Item Value Reference Range Interpretation Comments Potassium Lvl (test code = Potassium 3.9 3.5-5.1 Lvl) [facility]2016-07-30 09:17:00 Test Item Value Reference Range Interpretation Comments BUN (test code = BUN) 20 7-22 [facility]2016-07-30 09:17:00 Test Item Value Reference Range Interpretation Comments Sodium Lvl (test code = Sodium Lvl) 145 135-145 [place] 896176-07-30 09:17:00 Test Item Value Reference Range Interpretation Comments Chloride Lvl (test code = Chloride Lvl) 109 95-109 [facility]2016-07-30 09:17:00 Test Item Value Reference Range Interpretation Comments CO2 (test code = CO2) 29 24-32 [facility]2016-07-30 09:17:00 Test Item Value Reference Range Interpretation Comments B/C Ratio (test code = B/C Ratio) 27 6-25 [facility]2016-07-30 09:17:00 Test Item Value Reference Range Interpretation Comments A/G Ratio (test code = A/G Ratio) 1.2 0.7-1.6 [facility]2016-07-30 09:17:00 Test Item Value Reference Range Interpretation Comments Globulin (test code = Globulin) 2.3 2.0-4.0 [facility]gtwjfxVPDXIPABRZ2069-71-45 09:17:00 Test Item Value Reference Range Interpretation Comments Monocytes (test code = Monocytes) 11.7 2.0-12.0 [facility] HospitalEuoyuudKTODHGKHXA4714-25-85 09:17:00 Test Item Value Reference Range Interpretation Comments Segs-Bands # (test code = Segs-Bands #) 4.9 1.5-8.1 [facility] HospitalIshmcnbTRXCJJURMP3195-90-67 09:17:00 Test Item Value Reference Range Interpretation Comments Basophils (test code = Basophils) 0.4 <=1.0 [facility] HospitalOqvhlbgKEQCUMXVSH2668-60-74 09:17:00 Test Item Value Reference Range Interpretation Comments Lymphocytes # (test code = Lymphocytes 1.3 1.0-5.5 #) [facility] HospitalOywjcpuGIKQSYNCEK6902-69-81 09:17:00 Test Item Value Reference Range Interpretation Comments Macrocyte (test code = 1+ *ABN*(01/15/16 Macrocyte) 4:17 AM) [facility] HospitalVcmamskFXVLZALSQX2739-44-71 09:17:00 Test Item Value Reference Range Interpretation Comments Segs (test code = Segs) 67.7 45.0-75.0 [facility] HospitalXvhoktjMZOBSCOILS7482-77-82 09:17:00 Test Item Value Reference Range Interpretation Comments Lymphocytes (test code = Lymphocytes) 17.4 20.0-40.0 [facility] HospitalXjfwskzMVVWDVLHOS1008-18-78 09:17:00 Test Item Value Reference Range Interpretation Comments Eosinophils (test code = Eosinophils) 2.8 <=4.0 [facility] HospitalElymrdrEKCSVPWYGC3554-53-26 09:17:00 Test Item Value Reference Range Interpretation Comments Basophils # (test code = Basophils #) 0.0 <=0.2 [facility] HospitalAulyqnzTUQJGLZDSC6141-23-83 09:17:00 Test Item Value Reference Range Interpretation Comments Eosinophils # (test code = Eosinophils 0.2 <=0.5 #) [facility] HospitalNhfvcqvEXYRFPYCKE7495-96-52 09:17:00 Test Item Value Reference Range Interpretation Comments Monocytes # (test code = Monocytes #) 0.9 <=0.8 [facility] HospitalNgdttmiOOIVIOWDRN7838-63-27 09:17:00 Test Item Value Reference Range Interpretation Comments Platelet (test code = Platelet) 149 133-450 [facility] HospitalOmbjhjsHBPKSWRFUU5068-45-28 09:17:00 Test Item Value Reference Range Interpretation Comments WBC (test code = WBC) 7.3 3.7-10.4 [facility] HospitalHtmsdzoOZIRONKSIU6249-64-40 09:17:00 Test Item Value Reference Range Interpretation Comments Hct (test code = Hct) 39.8 36.0-48.0 [facility] HospitalOicvpvrHUEBKDPMAR8207-78-67 09:17:00 Test Item Value Reference Range Interpretation Comments Hgb (test code = Hgb) 13.0 12.0-16.0 [facility] HospitalEarhazqTUYNACEDNR6471-18-77 09:17:00 Test Item Value Reference Range Interpretation Comments RBC (test code = RBC) 4.23 4.20-5.40 [facility] HospitalYnrviyzIYOSYIVCTM1917-05-05 09:17:00 Test Item Value Reference Range Interpretation Comments MCHC (test code = MCHC) 32.8 32.0-36.0 [facility] HospitalWdequcxHQACWYHAPP8341-98-76 09:17:00 Test Item Value Reference Range Interpretation Comments MCV (test code = MCV) 94.0 80.0-98.0 [facility] HospitalLcavgaiLLEBTTWKWN5543-60-05 09:17:00 Test Item Value Reference Range Interpretation Comments MCH (test code = MCH) 30.8 pg 27.0-31.0 [facility] HospitalPejvpwvCHZNLZZKPG6123-97-72 09:17:00 Test Item Value Reference Range Interpretation Comments RDW (test code = RDW) 13.5 11.5-14.5 [facility] HospitalBmfkhvwPGZMZJKFPS6430-11-26 09:17:00 Test Item Value Reference Range Interpretation Comments MPV (test code = MPV) 9.6 7.4-10.4 [facility]2016-07-29 10:06:00 Test Item Value Reference Range Interpretation Comments Glucose Lvl (test code = Glucose Lvl) 133 70-99 [facility]2016-07-29 10:06:00 Test Item Value Reference Range Interpretation Comments BUN (test code = BUN) 15 7-22 [facility]2016-07-29 10:06:00 Test Item Value Reference Range Interpretation Comments AGAP (test code = AGAP) 11.7 10.0-20.0 [facility]2016-07-29 10:06:00 Test Item Value Reference Range Interpretation Comments Calcium Lvl (test code = Calcium Lvl) 10.1 8.5-10.5 [facility]2016-07-29 10:06:00 Test Item Value Reference Range Interpretation Comments Potassium Lvl (test code = Potassium 3.7 3.5-5.1 Lvl) [facility]2016-07-29 10:06:00 Test Item Value Reference Range Interpretation Comments Sodium Lvl (test code = Sodium Lvl) 145 135-145 [facility]2016-07-29 10:06:00 Test Item Value Reference Range Interpretation Comments CO2 (test code = CO2) 28 24-32 [facility]2016-07-29 10:06:00 Test Item Value Reference Range Interpretation Comments Chloride Lvl (test code = Chloride Lvl) 109 95-109 [facility]2016-07-29 10:06:00 Test Item Value Reference Range Interpretation Comments Creatinine Lvl (test code = Creatinine 0.70 0.50-1.40 Lvl) [facility]2016-07-29 10:06:00 Test Item Value Reference Range Interpretation Comments eGFR (test code = eGFR) 86 [facility]2016-07-28 10:43:00 Test Item Value Reference Range Interpretation Comments Total Protein (test code = Total 4.9 6.4-8.4 Protein) [facility]2016-07-28 10:43:00 Test Item Value Reference Range Interpretation Comments Alk Phos (test code = Alk Phos) 60 39-136 [facility]2016-07-28 10:43:00 Test Item Value Reference Range Interpretation Comments Bili Total (test code = Bili Total) 0.4 0.2-1.3 [facility]2016-07-28 10:43:00 Test Item Value Reference Range Interpretation Comments ALT (test code = ALT) 22 <=65 [facility]2016-07-28 10:43:00 Test Item Value Reference Range Interpretation Comments AST (test code = AST) 12 <=37 [facility]2016-07-28 10:43:00 Test Item Value Reference Range Interpretation Comments Albumin Lvl (test code = Albumin Lvl) 2.7 3.5-5.0 [facility]2016-07-28 10:43:00 Test Item Value Reference Range Interpretation Comments Globulin (test code = Globulin) 2.2 2.0-4.0 [facility]2016-07-28 10:43:00 Test Item Value Reference Range Interpretation Comments A/G Ratio (test code = A/G Ratio) 1.2 0.7-1.6 [facility]2016-07-28 10:43:00 Test Item Value Reference Range Interpretation Comments B/C Ratio (test code = B/C Ratio) 23 6-25 [facility] HospitalGuaffarYRKNZCGTCA0459-81-41 10:43:00 Test Item Value Reference Range Interpretation Comments RBC (test code = RBC) 4.18 4.20-5.40 [facility] HospitalUktyzcnPHCBPEJEWD8038-56-46 10:43:00 Test Item Value Reference Range Interpretation Comments WBC (test code = WBC) 6.7 3.7-10.4 [facility] HospitalLjxlegsSNIBYIZWJA9819-73-13 10:43:00 Test Item Value Reference Range Interpretation Comments MPV (test code = MPV) 9.3 7.4-10.4 [facility] HospitalXgpibopQYZWZTECTM1214-03-66 10:43:00 Test Item Value Reference Range Interpretation Comments Platelet (test code = Platelet) 159 133-450 [facility] HospitalDdytubjJBOTVIGABE7586-13-73 10:43:00 Test Item Value Reference Range Interpretation Comments RDW (test code = RDW) 12.8 11.5-14.5 [facility] HospitalWwlmtytBBQMIGLAKM9622-16-42 10:43:00 Test Item Value Reference Range Interpretation Comments MCH (test code = MCH) 30.7 pg 27.0-31.0 [facility] HospitalIxbkcxsNUOMZSPLLU5312-73-43 10:43:00 Test Item Value Reference Range Interpretation Comments MCV (test code = MCV) 93.8 80.0-98.0 [facility] HospitalEycqhzgKCSFFMLBVX5983-30-72 10:43:00 Test Item Value Reference Range Interpretation Comments Hct (test code = Hct) 39.2 36.0-48.0 [facility] HospitalGhefagoKODFUIBPDL4974-75-14 10:43:00 Test Item Value Reference Range Interpretation Comments Hgb (test code = Hgb) 12.8 12.0-16.0 [facility] HospitalBxkjzdqLMWSADBKSX0203-78-24 10:43:00 Test Item Value Reference Range Interpretation Comments MCHC (test code = MCHC) 32.8 32.0-36.0 [facility] HospitalWlvgzgtOXXDIJTSND6318-39-82 10:43:00 Test Item Value Reference Range Interpretation Comments Lymphocytes (test code = Lymphocytes) 21.4 20.0-40.0 [facility] HospitalUjbszzhHKMFTCWMPJ2982-19-08 10:43:00 Test Item Value Reference Range Interpretation Comments Segs (test code = Segs) 64.1 45.0-75.0 [facility] HospitalHgrimcjFJBQJPIAOK1835-98-47 10:43:00 Test Item Value Reference Range Interpretation Comments Eosinophils (test code = Eosinophils) 3.1 <=4.0 [facility] HospitalYmvvijaJOOMTWMVCG6933-91-52 10:43:00 Test Item Value Reference Range Interpretation Comments Monocytes (test code = Monocytes) 10.9 2.0-12.0 [facility] HospitalFsiqnazLBUBKVBEGD0188-71-34 10:43:00 Test Item Value Reference Range Interpretation Comments Basophils (test code = Basophils) 0.5 <=1.0 [facility] HospitalGxdmyflRWGNFBGPCZ1709-25-35 10:43:00 Test Item Value Reference Range Interpretation Comments Basophils # (test code = Basophils #) 0.0 <=0.2 [facility] HospitalIltpuduFGZKRYNIGA6023-33-36 10:43:00 Test Item Value Reference Range Interpretation Comments Eosinophils # (test code = Eosinophils 0.2 <=0.5 #) [facility] HospitalNnumgatOSEZIQYIQV9905-31-01 10:43:00 Test Item Value Reference Range Interpretation Comments Monocytes # (test code = Monocytes #) 0.7 <=0.8 [facility] HospitalSkpkffrJICFBPNMBR6830-33-07 10:43:00 Test Item Value Reference Range Interpretation Comments Lymphocytes # (test code = Lymphocytes 1.4 1.0-5.5 #) [facility] HospitalDhtiwbtZRXVVHHSXF6668-88-85 10:43:00 Test Item Value Reference Range Interpretation Comments Segs-Bands # (test code = Segs-Bands #) 4.3 1.5-8.1 [facility]2016-07-26 23:48:00 Test Item Value Reference Range Interpretation Comments Magnesium Lvl (test code = Magnesium 1.8 1.8-2.4 Lvl) [facility]2016-07-26 23:48:00 Test Item Value Reference Range Interpretation Comments Phosphorus (test code = Phosphorus) 2.0 2.5-4.5 [facility] HospitalQwpgmwiOZVYZJJPJI1567-55-14 23:48:00 Test Item Value Reference Range Interpretation Comments Basophils # (test code = Basophils #) 0.0 <=0.2 [facility] HospitalVufqfrgXCXYJEDGEH8922-62-69 23:48:00 Test Item Value Reference Range Interpretation Comments Macrocyte (test code = 1+ *ABN*(01/11/16 Macrocyte) 6:48 PM) [facility] HospitalNfshdyxPQNIMUSAAS5918-27-02 23:48:00 Test Item Value Reference Range Interpretation Comments INR (test code = INR) 0.99 0.85-1.17 [facility] HospitalMdyrjwhWUDYAYXSFS9093-08-15 23:48:00 Test Item Value Reference Range Interpretation Comments PTT (test code = PTT) 23.5 s 22.9-35.8 [facility] HospitalHvbpubvIQVCAFCJNL8858-72-56 23:48:00 Test Item Value Reference Range Interpretation Comments PT (test code = PT) 13.4 s 12.0-14.7 [facility] GLUCOSE ECVMEDM0289-99-28 12:49:00 Test Item Value Reference Range Interpretation Comments Comment1 (test code = Comment1) Notify RN/MD [facility] GLUCOSE WDBGGFZ7548-47-68 12:49:00 Test Item Value Reference Range Interpretation Comments Gluc POC Lifscn (test code = Gluc POC 308 70-99 H Lifscn) [facility] GLUCOSE RFXPZTE4553-91-61 08:39:00 Test Item Value Reference Range Interpretation Comments Comment1 (test code = Comment1) Notify RN/ [facility] GLUCOSE HXPHXIB5626-11-14 08:39:00 Test Item Value Reference Range Interpretation Comments Gluc POC Lifscn (test code = Gluc POC 159 70-99 H Lifscn) [facility]JYAGDEXL7899[facility] 07:19:00 Test Item Value Reference Range Interpretation Comments AGAP (test code = AGAP) 14.3 10.0-20.0 [facility] CenterWaowdedUOWWFQHZX5605-09-70 07:19:00 Test Item Value Reference Range Interpretation Comments eGFR (test code = eGFR) 75 [facility] CenterPlzfsmdCCZIVXCDR2878-55-93 07:19:00 Test Item Value Reference Range Interpretation Comments Sodium Lvl (test code = Sodium Lvl) 139 135-145 [facility] CenterXnsqdhdPDUXDCVGT1621-00-44 07:19:00 Test Item Value Reference Range Interpretation Comments Chloride Lvl (test code = Chloride Lvl) 104 95-109 [facility] CenterUopsjjkLZAYAZGEZ4537-73-06 07:19:00 Test Item Value Reference Range Interpretation Comments CO2 (test code = CO2) 25 24-32 [facility] CenterViszfyuDOAWENGJR2562-75-72 07:19:00 Test Item Value Reference Range Interpretation Comments Calcium Lvl (test code = Calcium Lvl) 10.7 8.5-10.5 [facility] CenterWmsrtlwRUGKWBRYT5641-88-81 07:19:00 Test Item Value Reference Range Interpretation Comments Potassium Lvl (test code = Potassium 4.3 3.5-5.1 N Lvl) [facility] CenterRuzvfikWEZTETNQU3656-11-73 07:19:00 Test Item Value Reference Range Interpretation Comments Glucose Lvl (test code = Glucose Lvl) 262 70-99 [facility] CenterLdtaguvGRYZJXNGH6988-45-52 07:19:00 Test Item Value Reference Range Interpretation Comments Creatinine Lvl (test code = Creatinine 0.8 0.5-1.4 N Lvl) [facility] CenterFiofgjyOUQOZRTGE1900-81-52 07:19:00 Test Item Value Reference Range Interpretation Comments BUN (test code = BUN) 20 7-22 N [facility] HospitalKkidexdTFOEYKTMLP6717-76-30 07:19:00 Test Item Value Reference Range Interpretation Comments Hgb (test code = Hgb) 14.0 12.0-16.0 N [facility] HospitalFmgyosiTJISJCSWWG2016-75-08 07:19:00 Test Item Value Reference Range Interpretation Comments Hct (test code = Hct) 42.5 36.0-48.0 N [facility] HospitalWayptmvBFJMLGYBBY3483-18-44 07:19:00 Test Item Value Reference Range Interpretation Comments MCV (test code = MCV) 92.3 81.0-99.0 N [facility] HospitalBdcdfzaPAXTSTFGMT8410-77-33 07:19:00 Test Item Value Reference Range Interpretation Comments MCH (test code = MCH) 30.5 pg 27.0-31.0 N [facility] HospitalPbascosJYNANBZVOC1168-67-60 07:19:00 Test Item Value Reference Range Interpretation Comments MCHC (test code = MCHC) 33.0 32.0-36.0 N [facility] HospitalSdkrtimBAXIQATKLZ7357-94-27 07:19:00 Test Item Value Reference Range Interpretation Comments RDW (test code = RDW) 14.6 11.5-14.5 H [facility] HospitalSkvukdtLRHQCQCGHG0422-28-26 07:19:00 Test Item Value Reference Range Interpretation Comments Platelet (test code = Platelet) 215 133-450 N [facility] HospitalDsakvvtORBORZCDOA1457-03-56 07:19:00 Test Item Value Reference Range Interpretation Comments MPV (test code = MPV) 10.0 7.4-10.4 N [facility] HospitalHzebuwtTRRBVDWGNR6418-05-61 07:19:00 Test Item Value Reference Range Interpretation Comments RBC (test code = RBC) 4.60 4.20-5.[address] [facility] HospitalHhhukapKNPLSQSRAB1814-86-07 07:19:00 Test Item Value Reference Range Interpretation Comments WBC (test code = WBC) 13.0 3.7-10.4 H [facility] GLUCOSE ZDIGXMP8830-47-59 04:41:00 Test Item Value Reference Range Interpretation Comments Comment1 (test code = Comment1) Notify RN/MD [facility] GLUCOSE MHMUZNQ2660-85-34 04:41:00 Test Item Value Reference Range Interpretation Comments Gluc POC Lifscn (test code = Gluc POC 244 70-99 H Lifscn) [facility] HospitalJjqjqscXYRRHKHFP4539-05-99 07:50:32 Test Item Value Reference Range Interpretation Comments Magnesium Lvl (test code = Magnesium 2.0 1.8-2.4 N Lvl) [facility]KjxtqivJgohtsvcvqqx8288-62-90 11:00:00 Test Item Value Reference Range Interpretation Comments Culture: Urine (test code = Culture: Urine) [facility] HospitalPipsezsJPDDVVXKQC7998-56-64 06:52:38 Test Item Value Reference Range Interpretation Comments UA Urobilinogen (test code *NA*(10/04/2012 0.1-1.0 = UA Urobilinogen) 01:52:38) [facility] HospitalWlujjnoZBVIPVFRFG4933-09-04 06:52:38 Test Item Value Reference Range Interpretation Comments UA Color (test code = Yellow *NA*(10/04/2012 UA Color) 01:52:38) [facility] HospitalSliejphIOWONICIEG1371-96-08 06:52:38 Test Item Value Reference Range Interpretation Comments UA Bacteria (test code Occasional /HPF = UA Bacteria) *NA*(10/04/2012 01:52:38) [facility] HospitalEehrqqcYMGTWNGNFD4644-83-17 06:52:38 Test Item Value Reference Range Interpretation Comments UA Sq Epi (test code Occasional /LPF = UA Sq Epi) *NA*(10/04/2012 01:52:38) [facility]CruaijzDDUTPNZHBQ5813-54-68 06:52:38 Test Item Value Reference Range Interpretation Comments UA RBC (test code = UA RBC) [address] [facility] HospitalCbtpuddOBBPZCKBAV4024-71-80 06:52:38 Test Item Value Reference Range Interpretation Comments UA Leuk Est (test code Small *ABN*(10/04/2012 A = UA Leuk Est) 01:52:38) [facility] HospitalJndzejaGOLTTFNNBT0859-67-95 06:52:38 Test Item Value Reference Range Interpretation Comments UA WBC (test code = UA WBC) 12 <=5 H [facility] HospitalAgybzddMVLKYCACMC9632-29-16 06:52:38 Test Item Value Reference Range Interpretation Comments UA Protein (test code = 10 mg/dL A UA Protein) *ABN*(10/04/2012 01:52:38) [facility] HospitalGsnpekmPMCJHOFXVS3905-18-97 06:52:38 Test Item Value Reference Range Interpretation Comments UA pH (test code = UA pH) 5.0 5.0-8.0 N [facility] HospitalGkhwdkpJXLGPMVTNU6815-70-75 06:52:38 Test Item Value Reference Range Interpretation Comments UA Spec Grav (test code = UA Spec Grav) 1.022 N [facility] HospitalJulqvtxVMUFSQAFKX1701-72-17 06:52:38 Test Item Value Reference Range Interpretation Comments UA Turbidity (test code Slight A = UA Turbidity) *ABN*(10/04/2012 01:52:38) [facility] HospitalTbbmgvyTZUDPBXDZX0572-83-89 06:52:38 Test Item Value Reference Range Interpretation Comments UA Nitrite (test code Negative (10/04/2012 N = UA Nitrite) 01:52:38) [facility]qafthkZYCIHRSTKG1547-87-22 06:52:38 Test Item Value Reference Range Interpretation Comments UA Blood (test code = Small *ABN*(10/04/2012 A UA Blood) 01:52:38) [facility] HospitalEcgrxakFXSLUJHNJN8290-77-68 06:52:38 Test Item Value Reference Range Interpretation Comments UA Bili (test code = Negative *NA*(10/04/2012 UA Bili) 01:52:38) [facility] HospitalFdyhfrmZJUTYGXFXE5614-06-03 06:52:38 Test Item Value Reference Range Interpretation Comments UA Ketones (test code Negative mg/dL = UA Ketones) *NA*(10/04/2012 01:52:38) [facility] HospitalWzenhozVNOTCBHVJU2053-80-83 06:52:38 Test Item Value Reference Range Interpretation Comments UA Glucose (test code = 30 mg/dL A UA Glucose) *ABN*(10/04/2012 01:52:38) [facility]LuflblzOWCBSQLGX7515-74-65 06:52:00 Test Item Value Reference Range Interpretation Comments Phosphorus (test code = Phosphorus) 3.5 2.5-4.5 N [facility] CenterUatfdtyOYQJVWYXN8603-09-83 06:52:00 Test Item Value Reference Range Interpretation Comments AGAP (test code = AGAP) 13.4 10.0-20.0 N [facility] CenterDndtgwlLBDBXEWLZ0161-56-03 06:52:00 Test Item Value Reference Range Interpretation Comments Glucose Lvl (test code = Glucose Lvl) 181 70-99 H [facility] CenterTsqoipvYADXPUXDS0944-15-35 06:52:00 Test Item Value Reference Range Interpretation Comments Creatinine Lvl (test code = Creatinine 0.9 0.5-1.4 N Lvl) [facility] CenterTjokkpjQCRQKXEFG8738-76-71 06:52:00 Test Item Value Reference Range Interpretation Comments BUN (test code = BUN) 17 7-22 N [facility] CenterChzrcviUUDAWXPMF8538-78-71 06:52:00 Test Item Value Reference Range Interpretation Comments Sodium Lvl (test code = Sodium Lvl) 140 135-145 N [facility] CenterLvpnkdtITMFBXWFC3803-78-68 06:52:00 Test Item Value Reference Range Interpretation Comments Chloride Lvl (test code = Chloride Lvl) 105 95-109 N [facility] CenterFotbnubULQCNBPWJ5575-48-05 06:52:00 Test Item Value Reference Range Interpretation Comments Calcium Lvl (test code = Calcium Lvl) 9.7 8.5-10.5 N [facility] CenterMrnnuihJPWULDRDZ7616-86-61 06:52:00 Test Item Value Reference Range Interpretation Comments Potassium Lvl (test code = Potassium 4.4 3.5-5.1 N Lvl) [facility] CenterAduktziXUSYNWJRS2866-54-49 06:52:00 Test Item Value Reference Range Interpretation Comments CO2 (test code = CO2) 26 24-32 N [facility] CenterJutvhneEWGJOOCST8463-17-00 06:52:00 Test Item Value Reference Range Interpretation Comments eGFR (test code = eGFR) 65 [facility] CenterRefvjbzQPNNFMYRQ3745-44-80 06:52:00 Test Item Value Reference Range Interpretation Comments Magnesium Lvl (test code = Magnesium 1.5 1.8-2.4 L Lvl) [facility] HospitalIujxllkIGUSHEDYUT3543-08-73 06:52:00 Test Item Value Reference Range Interpretation Comments RBC (test code = RBC) 4.85 4.20-5.40 N [facility] HospitalNuoqxrqMUUYQQZJPY0577-37-31 06:52:00 Test Item Value Reference Range Interpretation Comments WBC (test code = WBC) 9.2 3.7-10.4 N [facility] HospitalLgaoruaYGNLNDVYTP7576-63-32 06:52:00 Test Item Value Reference Range Interpretation Comments Hgb (test code = Hgb) 14.9 12.0-16.0 N [facility] HospitalYrbpmlrYFRQKAZKGM1227-85-51 06:52:00 Test Item Value Reference Range Interpretation Comments MCHC (test code = MCHC) 33.3 32.0-36.0 N [facility] HospitalYkjzscoBHRKSFYBLQ3018-34-04 06:52:00 Test Item Value Reference Range Interpretation Comments MCH (test code = MCH) 30.7 pg 27.0-31.0 N [facility] HospitalOgfcispQTTHALJFSN8848-31-91 06:52:00 Test Item Value Reference Range Interpretation Comments Hct (test code = Hct) 44.9 36.0-48.0 N [facility] HospitalErrdyuoRRURSWVKLI2656-53-33 06:52:00 Test Item Value Reference Range Interpretation Comments MCV (test code = MCV) 92.4 81.0-99.0 N [facility] HospitalKefdtybFPRXPYTFRA9543-37-70 06:52:00 Test Item Value Reference Range Interpretation Comments RDW (test code = RDW) 14.5 11.5-14.5 N [facility] HospitalXkjqynzRBYBXWBIYD6458-28-97 06:52:00 Test Item Value Reference Range Interpretation Comments Platelet (test code = Platelet) 213 133-450 N [facility] [facility]65[facility] 06:52:00 Test Item Value Reference Range Interpretation Comments MPV (test code = MPV) 9.5 7.4-10.4 N [facility]XbvjwegRAMCOKYMTF1343-04-46 06:52:00 Test Item Value Reference Range Interpretation Comments Segs-Bands # (test code = Segs-Bands #) 7.7 1.5-8.1 N [facility] HospitalOxtbetlCTVPLIQNPQ7172-25-68 06:52:00 Test Item Value Reference Range Interpretation Comments Basophils (test code = Basophils) 0.3 <=1.0 N [facility] HospitalZilwmbgSHLZBJDPHL3053-46-54 06:52:00 Test Item Value Reference Range Interpretation Comments Monocytes # (test code = Monocytes #) 0.6 <=0.8 N [facility] HospitalYdqhyuuMGZJLCLFER1445-89-02 06:52:00 Test Item Value Reference Range Interpretation Comments Lymphocytes # (test code = Lymphocytes 0.9 1.0-5.5 L #) [facility] HospitalFhfoakwAJHJGVVXXP8094-85-28 06:52:00 Test Item Value Reference Range Interpretation Comments Lymphocytes (test code = Lymphocytes) 9.5 20.0-40.0 L [facility] HospitalGqxgbdjGRPNWMIJUI6810-56-96 06:52:00 Test Item Value Reference Range Interpretation Comments Segs (test code = Segs) 84.1 45.0-75.0 H [facility] HospitalYtecgbuPHWDSDEDLN0886-07-00 06:52:00 Test Item Value Reference Range Interpretation Comments Monocytes (test code = Monocytes) 6.0 2.0-12.0 N [facility] HospitalSzjwpdfGXELDDZIIV0300-57-99 06:52:00 Test Item Value Reference Range Interpretation Comments Eosinophils (test code = Eosinophils) 0.1 <=4.0 [facility]ypeumpTFTWTXUAN9845-23-36 19:08:00 Test Item Value Reference Range Interpretation Comments POC A Glu (test code = POC A Glu) 152 70-99 [facility] CenterWqmldpeZLUMHWRHO4926-90-01 19:08:00 Test Item Value Reference Range Interpretation Comments POC A LA (test code = POC A LA) 0.7 0.5-2.2 N [facility] CenterYhjrcjtCFLILVWKA5278-52-40 19:08:00 Test Item Value Reference Range Interpretation Comments POC A HCO3 (test code = POC A HCO3) 24 22-26 N [facility] CenterRixqkvsSENVBZHYD7930-63-12 19:08:00 Test Item Value Reference Range Interpretation Comments POC A BE (test code = POC A BE) -1 <=2 N [facility] CenterQsxkyxuRIHZPATPF3606-07-95 19:08:00 Test Item Value Reference Range Interpretation Comments POC A Hct (test code = POC A Hct) 35.0 36.0-48.0 L [facility] CenterWuapkxbFODILVPKJ0912-89-37 19:08:00 Test Item Value Reference Range Interpretation Comments POC A O2 Sat (test code = POC A O2 Sat) 96.0 95.0-100.0 N [facility] CenterJarkcolDYZRWIARC5261-32-41 19:08:00 Test Item Value Reference Range Interpretation Comments POC A K (test code = POC A K) 3.4 3.5-5.1 L [facility] CenterCrrxzfpDHCLPMXOJ0090-81-61 19:08:00 Test Item Value Reference Range Interpretation Comments POC A Na (test code = POC A Na) 138 135-145 N [facility] CenterLeolfyxZUBRDBDGL8846-82-60 19:08:00 Test Item Value Reference Range Interpretation Comments POC A PCO2 (test code = POC A PCO2) 40 35-45 N [facility] CenterRvglnhcXSHKGDARL6046-25-99 19:08:00 Test Item Value Reference Range Interpretation Comments POC A Ca Ion (test code = POC A Ca Ion) 1.26 1.16-1.30 N [facility] CenterCfsuxbhXQUWZDINC0390-48-16 19:08:00 Test Item Value Reference Range Interpretation Comments POC A Source (test code = POC A Source) ART [facility] CenterRncputcSQTEBRXTC3340-37-13 19:08:00 Test Item Value Reference Range Interpretation Comments POC A Temp (test code = POC A Temp) 37.0 [facility] CenterHindlirSQMVVIXMR9104-35-51 19:08:00 Test Item Value Reference Range Interpretation Comments POC A PO2 (test code = POC A PO2) 85 80-100 N [facility] CenterKooaogjIQXXMGUQZ0344-10-51 19:08:00 Test Item Value Reference Range Interpretation Comments POC A pH (test code = POC A pH) 7.39 7.35-7.45 N [facility] CenterJsgyndpHAGTAKBGT4494-63-76 17:27:00 Test Item Value Reference Range Interpretation Comments POC A PCO2 (test code = POC A PCO2) 44 35-45 N [facility] CenterFizkitcPTBHHJETX5719-58-35 17:27:00 Test Item Value Reference Range Interpretation Comments POC A BE (test code = POC A BE) 1 <=2 N [facility] CenterUdknllaRXWFRULCN9461-46-67 17:27:00 Test Item Value Reference Range Interpretation Comments POC A HCO3 (test code = POC A HCO3) 26 22-26 N [facility] CenterExwgnctBSPLBUHOE2798-03-69 17:27:00 Test Item Value Reference Range Interpretation Comments POC A PO2 (test code = POC A PO2) 161 80-100 H [facility] CenterMvbmexrILBRAFFNR1268-87-24 17:27:00 Test Item Value Reference Range Interpretation Comments POC A Na (test code = POC A Na) 137 135-145 N [facility] ResourcesCmjaczoQBSDPFWBU9468-43-23 17:27:00 Test Item Value Reference Range Interpretation Comments POC A Ca Ion (test code = POC A Ca Ion) 1.29 1.16-1.30 N [facility] ResourcesQaakxoeTCZHUOPDH2662-36-10 17:27:00 Test Item Value Reference Range Interpretation Comments POC A O2 Sat (test code = POC A O2 Sat) 99.0 95.0-100.0 N [facility] CvbggfwOIYUOVQNS2326-85-22 17:27:00 Test Item Value Reference Range Interpretation Comments POC A K (test code = POC A K) 3.9 3.5-5.1 N [facility] YijeaijIUWIHBGWZ1934-79-67 17:27:00 Test Item Value Reference Range Interpretation Comments POC A Hct (test code = POC A Hct) 38.0 36.0-48.0 N [facility] OsrurkeMSKFYCPIC1860-75-70 17:27:00 Test Item Value Reference Range Interpretation Comments POC A Source (test code = POC A Source) ART [facility] ResourcesUteazdfMISVNKMJS6657-65-53 17:27:00 Test Item Value Reference Range Interpretation Comments POC A pH (test code = POC A pH) 7.38 7.35-7.45 N [facility] TabviafWVJYHCFUY3047-70-20 17:27:00 Test Item Value Reference Range Interpretation Comments POC A Temp (test code = POC A Temp) 37.0 [facility] OadljieMDJZYDTVC3605-60-16 17:27:00 Test Item Value Reference Range Interpretation Comments POC A Glu (test code = POC A Glu) 150 70-99 H [facility] ResourcesBzddqvuLPCWSAZWB7934-06-61 17:27:00 Test Item Value Reference Range Interpretation Comments POC A LA (test code = POC A LA) 1.1 0.5-2.2 N [facility] [id number] 14:25:00 Test Item Value Reference Range Interpretation Comments ABO/Rh (test code = ABO/Rh) A NEG [facility] imbookin ([place]) [id number] 14:25:00 Test Item Value Reference Range Interpretation Comments Antibody Scrn (test Negative (10/03/2012 N code = Antibody Scrn) 09:25:00) Elvira Butler
[2023-05-04 21:59] LABS: Absolute Lymphocytes (CBC) 1.1 K/uL (0.7-4.9); Hematocrit 42.5 % (36.0-45.0); Lymphocytes % 9.7 % (15.3-44.8); MCV 91.6 fL (80-100); MPV 9.4 fL (7.6-11.3); Platelets 278 thou/uL (152-406); RBC Red Blood Cell Count 4.64 M/uL (3.86-4.86)
[2023-05-04 22:20] LABS: Albumin 3.3 g/dL (3.4-5.0); Bilirubin Total 0.7 mg/dL (0.2-1.0); Protein, Total 7.5 g/dL (6.4-8.2)
--- NOTE | 2023-05-04 22:25 | RAD REPORT ---
EXAM DESCRIPTION: RAD - Chest Single View - 05/04/2023 10:17 pm CLINICAL HISTORY: TRAUMA Chest pain. COMPARISON: Chest Single View dated 03/18/2023; Chest Single View dated 03/01/2023; Chest Single View dated 01/15/2023; Chest Single View dated 09/11/2022 FINDINGS: Portable technique limits examination quality. The lungs are grossly clear. The heart is normal in size. Hardware is in place both shoulders as well as the cervical spine. IMPRESSION: No acute intrathoracic process suspected.
[2023-05-04 22:26] LABS: Potassium 5.4 mEq/L (3.5-5.1)
--- NOTE | 2023-05-04 22:26 | RAD REPORT ---
EXAM DESCRIPTION: RAD - Pelvis - 05/04/2023 10:17 pm CLINICAL HISTORY: TRAUMA COMPARISON: Hip Bilateral With Pelvis dated 07/20/2022 FINDINGS: Evidence of previous lumbar laminectomies. A significant amount of external wiring project s over the pelvis, limiting assessment. No fractures appreciated. The left hip is somewhat suboptimal ly visualized due to position.
--- NOTE | 2023-05-04 22:32 | RAD REPORT ---
EXAM DESCRIPTION: CT - CTHCSPWOC - 05/04/2023 10:22 pm CLINICAL HISTORY: Trauma, head and neck injury. TRAUMA COMPARISON: Neck Angio dated 03/18/2023; Neck Angio dated 03/01/2023; C Spine Wo Con dated 09/29/2022; Head C Spine Mpr Wo Con dated 06/08/2017 TECHNIQUE: Axial 5 mm thick images of the head were obtained. Axial 2 mm thick images of the cervical spine were obtained with sagittal and coronal reconstruction images generated and reviewed. All CT scans are performed using dose optimization technique as appropriate and may include automated exposure control or mA/KV adjustment according to patient size. FINDINGS: CT HEAD WITHOUT CONTRAST: No acute hemorrhage, hydrocephalus or extra-axial collection is identified.Mild generalized brain atr ophy is present with mild periventricular and deep white matter chronic microvascular ischemic change s.No areas of brain edema or midline shift. The paranasal sinuses and mastoids are clear.The calvarium is intact. CT CERVICAL SPINE WITHOUT CONTRAST: No fracture or subluxation.Fusion is present with anterior hardware in place spanning C4-6.No prevert ebral soft tissues swelling is identified. Right carotid stent is noted. Moderate atherosclerosis lef t carotid bulb. IMPRESSION: No acute intracranial or cervical spine findings.
--- NOTE | 2023-05-04 22:49 | EDPHYS ---
Physician Documentation [facility] Name: Kate Love Age: 82 yrs Sex: Female : 1940 Arrival Date: 05/04/2023 Time: 21:04 Bed 5 Private MD: ED Physician Shorty Small HPI: 05/04 21:20 This 82 yrs old Female presents to ER via Unassigned with complaints of ec2 evaluation after a fall. 21:20 Patient arrives today for evaluation after a fall. Patient reportedly was walking ec2 subsequently fell down, unclear if LOC as patient is a poor historian. History gathered from EMS, patient reportedly fell out of the bed. Patient is on Plavix. 21:50 present at bedside, reports she had some altered mental status throughout the ec2 day which she attributes to increasing her hydrocodone dose at home as she was normal prior to that. Patient had no loss of consciousness, is ambulating to the bathroom and subsequently fell down, was witnessed by .. Historical: - Allergies: 21:50 No Known Allergies; la4 - Immunization history:: Adult Immunizations up to date, Client reports receiving the 2nd dose of the Covid vaccine. - Social history:: Patient/guardian denies using alcohol, street drugs, tobacco products. - Code Status:: Full code. ROS: 21:20 Constitutional: as per hpi ec2 Exam: 21:20 Constitutional: GEN: No acute distress HEENT: -Head: Contusion to the right ec2 periorbital region -Eyes: EOMI CV: regular rate LUNGS: no respiratory distress ABD: non-tender MSK: No C/T/L spine deformities Stable pelvis RUE w/o deformities LUE w/o deformities RLE w/ good ROM LLE w/ good ROM Skin: Scattered ecchymosis noted to bilateral and upper lower extremities NEURO: GCS 14 (E4, V4, M6) Vital Signs: 21:30 BP 231 / 110; Pulse 75; Resp 18; Temp 98.6; Pulse Ox 99% on R/A; Weight 72.57 kg; la4 Height 5 ft. 5 in. ; 21:56 BP 231 / 110; Pulse 75; Resp 18; Temp 98.6; Pulse Ox 99% on R/A; Weight 72.57 kg (M); la4 Height 5 ft. 5 in. ; 22:02 BP 230 / 94; Pulse 74; Resp 18; Temp 98.6(O); Pulse Ox 96% ; la4 05/05 00:13 BP 242 / 88; Pulse 64; Resp 20; Pulse Ox 98% on R/A; la4 05/04 21:56 Body Mass Index 26.62 (72.57 kg, 165.1 cm) la4 05/04 21:30 pt c/o pain to right knee but unable to provide number on scale of 0-10 la4 21:56 bed scale la4 Raphael Coma Score: 22:02 Eye Response: spontaneous(4). Motor Response: obeys commands(6). Verbal Response: la4 confused(4). Total: 14. 05/05 00:13 Eye Response: spontaneous(4). Motor Response: obeys commands(6). Verbal Response: la4 confused(4). Total: 14. MDM: 05/04 21:08 Patient medically screened. ec2 21:20 ED course: Patient arrives today for evaluation after a fall. Examination remarkable ec2 for MSK findings as noted above. Will obtain CT scan of the head and C-spine, lab work, urine studies and reassess the patient. Currently evaluating for process such as intracranial brain bleed, C-spine fracture, electrolyte disturbance, UTI.. 21:52 Data reviewed: vital signs. ED course: Additionally patient with history of ec2 hypertension, unclear if she took her hypertensive medications tonight, has been initially reported she did not however is unsure. We will proceed with current work-up and evaluate for any evidence of endorgan damage via blood work.. 21:53 ED course: EKG independently reviewed and interpreted by me, shows normal sinus rhythm, ec2 rate of 76, no acute ST segment elevations, no concern intervals.. 22:34 ED course: CBC is unremarkable. Metabolic profile shows slight hypokalemia with a ec2 potassium of 5.4 however is a hemolyzed specimen. EKG shows no evidence of hyperkalemic changes. CT scan of the head and C-spine show no traumatic abnormalities. . 22:48 ED course: Patient remains hypertensive, has not taken her nighttime medications.. I ec2 will give the patient her home prescribed clonidine per request however no evidence of endorgan damage. With further discussion with the patient is back to her baseline, I discussed possible admission for placement if she is having issues with mobility and movement or if she remains altered inpatient hospitalization for further work-up however is adamant that she is at her baseline and declined. Will discharge home, return precautions given.. 05/05 00:54 ED course: Was called back to the room as had additional questions regarding ec2 cares, was asking if we could monitor her overnight, I instructed him and her that I would be happy to keep in the hospital however she likely needs further rehabilitation for rebuilding strength, that an overnight stay would not necessarily accomplish that, and I informed him that she is a very high fall risk and she likely needs more advanced cares at home and he should look into at home nursing. We will proceed with discharge per the patient and request. Patient remains at her baseline per the . At the time of discharge, patient was able to stand and help move herself. I stressed to the to return to the ED if he changes his mind and feels unable to care for patient.. 05/04 21:19 Order name: CBC with Diff; Complete Time: 22:33 ec2 05/04 21:19 Order name: CMP; Complete Time: 22:33 ec2 05/04 21:19 Order name: UAM; Complete Time: 23:23 ec2 05/04 21:19 Order name: CT Head C Spine; Complete Time: 22:33 ec2 05/04 21:22 Order name: CXR XRAY; Complete Time: 22:33 ec2 05/04 21:22 Order name: Pelvis XRAY; Complete Time: 22:33 ec2 05/04 21:19 Order name: EKG; Complete Time: 21:20 ec2 05/04 21:19 Order name: EKG - Nurse/Tech; Complete Time: 22:01 ec2 05/04 21:19 Order name: Cath; Complete Time: 23:04 ec2 Administered Medications: 05/04 23:27 Drug: cloNIDine PO 0.2 mg PO once Route: PO; la4 Disposition Summary: 05/04/23 22:49 Discharge Ordered Notes: Location: Home ec2 Condition: Stable ec2 Diagnosis - Essential (primary) hypertension ec2 - Altered mental status, unspecified ec2 Followup: ec2 - With: Private Physician - When: - Reason: Continuance of care Discharge Instructions: - Discharge Summary Sheet ec2 - Confusion ec2 Forms: - Medication Reconciliation Form ec2 - Thank You Letter ec2 - Antibiotic Education ec2 - Prescription Opioid Use ec2 - Patient Portal Instructions ec2 - Leadership Thank You Letter ec2 Signatures: Dispatcher [employer] Shorty Tovar MD MD ec2 Ronen French RN RN la4 Corrections: (The following items were deleted from the chart) 05/05 00:59 05/04 22:48 ED course: Patient remains hypertensive, has not taken her nighttime ec2 medications as intake these were performed on the bed. I will give the patient her home prescribed clonidine per request however no evidence of endorgan damage. With further discussion with the patient is back to her baseline, I discussed possible admission for placement if she is having issues with mobility and movement or if she remains altered inpatient hospitalization for further work-up however is adamant that she is at her baseline and declined. Will discharge home, return precautions given.. ec2 05/05 01:00 05/04 21:20 Constitutional: GEN: No acute distress HEENT: -Head: atraumatic -Eyes: EOMI ec2 CV: regular rate LUNGS: no respiratory distress ABD: non-tender SKIN: no wounds appreciated MSK: No C/T/L spine deformities RUE w/o trauma LUE w/o trauma RLE w/o trauma LLE w/o trauma NEURO: moves all extremities equally, GCS 14 (E4, V4, M6) ec2 05/05 01:02 00:54 ED course: Was called back to the room as had additional questions ec2 regarding cares, was asking if we could monitor her overnight, I instructed him and her that I would be happy to keep in the hospital however she likely needs further rehabilitation for rebuilding strength, that an overnight stay would not necessarily accomplish that, and I informed him that she is a very high fall risk and she likely needs more advanced cares at home and he should look into at home nursing. We will proceed with discharge per the patient and request. Patient remains at her baseline per the .. ec2 01:29 00:54 ED course: Was called back to the room as had additional questions ec2 regarding cares, was asking if we could monitor her overnight, I instructed him and her that I would be happy to keep in the hospital however she likely needs further rehabilitation for rebuilding strength, that an overnight stay would not necessarily accomplish that, and I informed him that she is a very high fall risk and she likely needs more advanced cares at home and he should look into at home nursing. We will proceed with discharge per the patient and request. Patient remains at her baseline per the . At the time of discharge, patient was able to stand and help move herself.. 2 01:40 05/04 21:20 Constitutional: GEN: No acute distress HEENT: -Head: Contusion to the right ec2 periorbital region -Eyes: EOMI CV: regular rate LUNGS: no respiratory distress ABD: non-tender MSK: No C/T/L spine deformities RUE w/o trauma LUE w/o trauma RLE w/o trauma LLE w/o trauma NEURO: GCS 14 (E4, V4, M6) count includes the [facility] 05/05 01:41 05/04 21:20 Constitutional: GEN: No acute distress HEENT: -Head: Contusion to the right ec2 periorbital region -Eyes: EOMI CV: regular rate LUNGS: no respiratory distress ABD: non-tender MSK: No C/T/L spine deformities Stable pelvis RUE w/o deformities LUE w/o deformities RLE w/o deformities LLE w/o deformities NEURO: GCS 14 (E4, V4, M6) count includes the [facility] 05/05 01:42 05/04 21:20 Constitutional: GEN: No acute distress HEENT: -Head: Contusion to the right ec2 periorbital region -Eyes: EOMI CV: regular rate LUNGS: no respiratory distress ABD: non-tender MSK: No C/T/L spine deformities Stable pelvis RUE w/o deformities LUE w/o deformities RLE w/o deformities LLE w/o deformities. Skin: Scattered ecchymosis noted to bilateral and upper lower extremities NEURO: GCS 14 (E4, V4, M6) count includes the [facility]
--- NOTE | 2023-05-04 22:49 | ER ---
Nurse's Notes [facility] Name: Kate Love Age: 82 yrs Sex: Female : 1940 Arrival Date: 05/04/2023 Time: 21:04 Bed 5 Private MD: Diagnosis: Essential (primary) hypertension;Altered mental status, unspecified Presentation: 05/04 21:30 Chief complaint: EMS states: Pt reported to live at home w/ spouse who states pt slid la4 out of bed onto floor. No noted injuries. Reported TIA 3 weeks ago w/ Hx of chronic pain. Baseline confusion. 21:30 Coronavirus screen: Vaccine status: Patient reports receiving the 2nd dose of the covid la4 vaccine. At this time, the client does not indicate any symptoms associated with coronavirus-19. Ebola Screen: No symptoms or risks identified at this time. Initial Sepsis Screen: Does the patient meet any 2 criteria? Does the patient have a suspected source of infection? No. Patient's initial sepsis screen is negative. Risk Assessment: Do you want to hurt yourself or someone else? Patient reports no desire to harm self or others. Onset of symptoms was May 04, 2023. Care prior to arrival: None. Activity prior to arrival: confused. 21:30 Method Of Arrival: EMS: [facility] la4 21:30 Acuity: AURELIA 3 la4 Triage Assessment: 21:50 General: Appears in no apparent distress. Behavior is cooperative, restless. Pain: la4 Complains of pain in thoracic area, lumbar area, left low back, left mid back, right mid back and right low back Pain does not radiate. Quality of pain is described as aching, Is continuous. Neuro: Horowitz Agitation-Sedation Scale (RASS): 0 - Alert and Calm Level of Consciousness is awake, alert, obeys commands, confused, Oriented to person, Robot Operator are equal bilaterally Moves all extremities. Speech is normal, Facial symmetry appears normal. Cardiovascular: No deficits noted. Denies chest pain, shortness of breath, Heart tones S1 S2 hypertensive Capillary refill is > 3 seconds is brisk Patient's skin is warm and dry. Rhythm is sinus bradycardia. Respiratory: No deficits noted. Breath sounds are clear bilaterally. GI: No deficits noted. Bowel sounds present X 4 quads. : Parent/caregiver report the patient having incontinence PUREWICK applied to wall suction. Derm: Skin is fragile, is thin, old bruising. pt reportedly takes plavix Skin is dry, Skin is pink, warm \T\ dry. Skin temperature is warm. Historical: - Allergies: 21:50 No Known Allergies; la4 - Immunization history:: Adult Immunizations up to date, Client reports receiving the 2nd dose of the Covid vaccine. - Social history:: Patient/guardian denies using alcohol, street drugs, tobacco products. - Code Status:: Full code. Screenin:59 [facility] ED Fall Risk Assessment (Adult) History of falling in the last 3 months, la4 including since admission Yes- single mechanical fall (1 pt) Confusion or Disorientation Yes (5 pts) Intoxicated or Sedated No (0 pts) Impaired Gait Yes (1 pt) Mobility Assist Device Used Yes (1 pt) Altered Elimination Yes (1 pt) Score/Fall Risk Level 3 or more points = High Risk Oriented to surroundings, Maintained a safe environment, Educated pt \T\ family on fall prevention, incl call for assistance when getting out of bed, Provided non-skid footwear, Hourly rounding (assess needs \T\ fall precautionary measures) done, Implemented a Fall Risk Plan of Care, Activated bed/chair alarm. Abuse screen: Denies threats or abuse. Denies injuries from another. Nutritional screening: No deficits noted. Tuberculosis screening: No symptoms or risk factors identified. Assessment: 21:58 Reassessment: No changes from previously documented assessment. see triage assessment. la4 General: Appears in no apparent distress. Behavior is cooperative, confused. Neuro: Level of Consciousness is awake, alert, obeys commands, confused, Oriented to person. Cardiovascular: Rhythm is sinus bradycardia. Respiratory: No deficits noted. 05/05 00:12 General: Pt escorted out of ED via wheelchair to spouses truck. Pt spouse states pt la4 uses walker at home. . Vital Signs: 05/04 21:30 BP 231 / 110; Pulse 75; Resp 18; Temp 98.6; Pulse Ox 99% on R/A; Weight 72.57 kg; la4 Height 5 ft. 5 in. ; 21:56 BP 231 / 110; Pulse 75; Resp 18; Temp 98.6; Pulse Ox 99% on R/A; Weight 72.57 kg (M); la4 Height 5 ft. 5 in. ; 22:02 BP 230 / 94; Pulse 74; Resp 18; Temp 98.6(O); Pulse Ox 96% ; la4 05/05 00:13 BP 242 / 88; Pulse 64; Resp 20; Pulse Ox 98% on R/A; la4 05/04 21:56 Body Mass Index 26.62 (72.57 kg, 165.1 cm) la4 05/04 21:30 pt c/o pain to right knee but unable to provide number on scale of 0-10 la4 21:56 bed scale la4 Raphael Coma Score: 22:02 Eye Response: spontaneous(4). Motor Response: obeys commands(6). Verbal Response: la4 confused(4). Total: 14. 05/05 00:13 Eye Response: spontaneous(4). Motor Response: obeys commands(6). Verbal Response: la4 confused(4). Total: 14. ED Course: 05/04 21:07 Patient arrived in ED. rv1 21:08 Shorty Small MD is Attending Physician. ec2 21:40 Patient has correct armband on for positive identification. Placed in gown. Bed in low la4 position. Call light in reach. Side rails up X2. 21:40 Provided Education on: plan of care. la4 21:45 Ronen French, RN is Primary Nurse. la4 21:50 Triage completed. la4 21:56 Arm band placed on right wrist. Patient placed in an exam room, in a wheelchair, on la4 skin lap bonder, on pulse oximetry. EKG completed in triage. Results shown to MD. Labs ordered per protocol. Drawn by ED staff. pt placed in hospital gown and to bedside. 22:00 No apparent distress. Awaiting lab results. la4 22:00 No provider procedures requiring assistance completed. Inserted saline lock: 20 gauge la4 in right wrist, using aseptic technique. 22:05 CXR XRAY Sent. la4 22:05 CT Head C Spine Sent. la4 22:06 Pelvis XRAY Sent. la4 22:19 CXR XRAY In Process Unspecified. EDMS 22:19 Pelvis XRAY In Process Unspecified. EDMS 22:24 CT Head C Spine In Process Unspecified. EDMS Administered Medications: 23:27 Drug: cloNIDine PO 0.2 mg PO once Route: PO; la4 Medication: 22:02 VIS not applicable for this client. la4 Outcome: 22:49 Discharge ordered by MD. hayes 05/05 00:15 Patient left the ED. la4 Signatures: Dispatcher [employer] Kate Campbell rvShorty Benson MD MD ec2 Ronen French RN RN la4
[2023-05-04] MEDS ORDERED: cloNIDine HCL 0.1 MG TAB ONE (23:18)
[2023-05-04 23:20] LABS: Specific Gravity 1.011 (1.005-1.030); Urine Bacteria <20 /HPF (<20); Urine Bilirubin NEGATIVE (Negative); Urine Blood Trace (Negative); Urine Clarity Turbid (Clear); Urine Color Light-Yellow (Yellow); Urine Glucose NEGATIVE (Negative); Urine Mucus Slight /HPF (None Seen); Urine Protein 2+ (Negative); Urine RBC <5 /HPF (None Seen); Urine Urobilinogen Normal (Normal); Urine pH 7.5 (5.0-7.0)
[2023-05-05 00:44] VITALS: TEMP 98.6
[2023-05-05 00:50] VITALS: BP 242/88; O2SAT 98
--- NOTE | 2023-05-09 17:08 | EKG ---
Test Date: 2023-05-04 Test Time: 21:49:54 Genetic Physician: KORTNEY MEASUREMENT RESULTS: Intervals: Rate: 76 MT: 188 QRSD: 74 QT: 386 QTc: 434 Arnold: P: 72 MT: 188 QRS: 65 T: 83 INTERPRETIVE STATEMENTS: Normal sinus rhythm Normal ECG Compared to ECG 03/18/2023 17:57:22 No significant changes Electronically Signed On 05-09-23 16:55:39 WET CHAR CONVEYOR TENDER by Brett Samson
== END 2023-05-05 00:15 | disposition home or self-care (01) ==
LOC: ER 21:04
DX: R41.82 Altered mental status, unspecified (principal); I10 Essential (primary) hypertension; S00.83XA Contusion of other part of head, initial encounter; M25.561 Pain in right knee; Z79.01 Long term (current) use of anticoagulants
CPT/HCPCS: 36415; 70450; 71045; 72125; 72170; 80053; 81001; 85025; 93005; 99284

== ENCOUNTER 2023-05-05 01:38 | Inpatient (IN) | payer OTHER ==
--- OUTSIDE RECORDS SUMMARY | 2023-05-05 02:46 | XMS REPORT | Continuity of Care Document ---
:1940 Author Organization [facility] t Address [address] [place] [address] Care Team Providers Name Role Phone Brandi Joao Quevedo Primary Care Physician CAROLINA MAYORGA Attending Clinician Unavailable WM LOPEZ Attending Clinician Unavailable ASIA SEGOVIA Attending Clinician Unavailable Skyler Hatch Attending Clinician Unavailable MICHAEL ASHBY Attending Clinician Unavailable Norma Espinoza Attending Clinician Unavailable Daniel Attending Clinician Unavailable Lora Quinones MD Attending Clinician CHAVA_GCBZW_Aline_Milagros Attending Clinician Unavailable KIRILL SANCHEZ Attending Clinician Unavailable Wm Lopez MD Attending Clinician Luca WARD, Asia Attending Clinician Jesus WARD, Kirill Attending Clinician Praveen WARD, Riley Dangelo Attending Clinician Maura Bello Attending Clinician Tierra WARD, Carolina Harman Attending Clinician [phone] Frank WARD, Alex Dunaway Attending Clinician Daniramiro_T Attending Clinician Unavailable Rut Nicolas MA Attending Clinician Unavailable Provider , Not In System Attending Clinician Unavailable Wilian Attending Clinician Unavailable Doctor Unassigned, [place] Attending Clinician Unavailable Chucho Montenegro MD Attending Clinician CHUCHO MONTENEGRO Attending Clinician Unavailable CHUCHO MONTENEGRO Attending Clinician Unavailable Roger Holloway Attending Clinician [phone] Phillip Castaneda Attending Clinician Unavailable Joby Wheeler [...] Expiration Date S ource UNITED MEDICARE HMO [id number] 2022 00:00:00 UHC MEDICARE [id number] 2021 ADVANTAGE 00:00:00 [facility] [id number] (MEDICARE REPLACEMENT/ADVANTA GE - PPO) [facility] [id number] 2022 [facility] 00:00:00 PPO [facility] [id number] 2023 00:00:00 [place]IC[place] B-[place]: [id number] [employer] (MEDICARE [id number] REPLACEMENT/ADVANTA GE - PPO) Problems Condition Condition Condition Status Onset Resolution Last Treating Co mments Source Name Details Category Date Date Treatment Clinician Date Inflammati Inflammati Problem Active 2022-06 A zalea on of on of 07-04 Orthope sacroiliac [...] 00 e Long-term Long-term Problem Active Perry zapata current Current 3 Family use of Use of 00:00: Practic [...] Sports Medicin e 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 Purpura 7-08 Family 00:00: Practic 00 e Morbid Morbid Problem Active [facility] obesity Obesity 4-19 Family 00:00: Practic 00 e Proteinuri Proteinuri Problem Active V illage a a 2-17 Family 00:00: Practic 00 e Body mass Body Mass Problem Active Perry zapata index 30+ Index 30+ 4-29 Fami ly - obesity - Obesity 00:00: Prac tic 00 e Coronary Coronary Problem Active [facility] arterioscl Arterioscl 4-29 Fa myla erosis erosis 00:00: Practic 00 e Type 2 Type 2 Problem Active [facility] diabetes Diabetes 2-24 Family mellitus Mellitus 00:00: [...] Disease Recurre [facility] artery artery nce 2- [facility] disease disease 00:00: Medical due to [...] 00:00: di c 00 Sports Medicin e 13059, 48859, Diagnosis Active 2016-08-23 Me flaherty 56406 X3, 79718 X3, 8-16 21:24:00 l CONNECTIVE CONNECTIVE 00:00: He rmann TISSUE AND TISSUE AND 00 D D Active 02/01/2016 [facility] HERNIATED HERNIATED Diagnosis Active 2016-02-01 Memoria LUMBAR LUMBAR 7- 22:00:00 l DISK S/P DISK S/P 00:00: Richard thompson FALL WITH FALL WITH 00 LT H LT H Active 01/11/2016 [facility] HERNIATED HERNIATED Diagnosis Active 2016-01-11 Memoria LUMBAR LUMBAR 7-25 05:29:00 l DISK S/P DISK S/P 00:00: Richard thompson FALL WITH FALL WITH 00 LEFT LEFT Active 01/10/2016 [facility] Knee pain Knee Pain Problem Active Aza maritza 6-09 Orthope 00:00: dic 00 Sports Medicin e Chronic Chronic Disease Recurre Overview: [facility] kidney kidney nce - [facility]in [facility] disease, disease, 00:00: g of this Med ical stage III stage III 00 note Cent er (moderate) (moderate) might be different from the original. BMP is pending. 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 5-02 Or thope s with s with 00:00: dic radiculopa Radiculopa 00 Sp orts thy thy Medicin e CERVICAL CERVICAL Diagnosis Active 2012-10-07 Memoria RADICULITI RADICULITI 3-22 13:29:00 l S, S, 00:00: [place] CERVICAL CERVICAL 00 DISC DISP DISC DISP Active 09/06/2012 [facility] Osteoarthr Osteoarthr Problem Active 2010-06 A bing itis of itis of 0-25 Orthope knee Knee 00:00: dic 00 Sports Medicin e Diabetes Diabetes Problem Active Victor M burk mellitus Mellitus Orthop e dic Sports Medicin e Hyperlipid Hyperlipid Problem Active A bing emia emia Orthope dic Sports Medicin e Obesity Obesity Problem Active Arlin Orthope dic Sports Medicin e Neuropathy Neuropathy Problem Active A Orthope dic Sports Medicin e Hypertensi Hypertensi Problem Active A ve ve Orthope disorder Disorder dic Sports Medicin e Gastroesop Gastroesop Problem Active A hageal hageal Orthope reflux Reflux dic disease Disease Sports Medicin e Lumbar Lumbar Problem Active Arlin spondylosi Spondylosi Or thope s s dic Sports Medicin e Displaceme Displaceme Problem Active A nt of nt of Orthope lumbar Lumbar dic interverte Interverte Sp orts bral disc bral Disc Medi ziyad without without e myelopathy Myelopathy Interverte Interverte Problem Active A le bral disc bral Disc Orth ope disorder [...] Medicin e Spondyloli Spondyloli Problem Active A sthesis sthesis Orthope dic Sports Medicin e No known No known Disease [place] active active Health problems problems Diabetes Diabetes Problem Resolve 2013-03-21 Memoria mellitus mellitus d 20:07:44 l Resolved [place] Problem 03/21/2013 [facility] PHYLLIS Butler GERD - GERD - Problem Resolve 2013-03-21 Mem oria Gastro-eso Gastro-eso d 20:07:44 l phageal phageal [place] reflux reflux disease disease Resolved Problem 03/21/2013 [facility] PHYLLIS [place] HLD - HLD - Problem Resolve 2013-03-21 Boy andrés Hyperlipid Hyperlipid d 20:07:44 l emia emia Luke Resolved Problem 03/21/2013 [facility] PHYLLIS [place] HTN - HTN - Problem Resolve 2013-03-21 Boy andrés Hypertensi Hypertensi d 20:07:44 l on on Luke Resolved Problem 03/21/2013 [facility] PHYLLIS [place] Neuropathy Neuropath Problem Resolve 2013-03-21 Memoria y Resolved d 20:07:44 l Problem Luke 03/21/2013 [facility] PHYLLIS [place] BRACHIAL BRACHIAL Diagnosis Active 2012-10-07 Memserene NEURITIS NEURITIS 13:29:00 l NOS NOS Active Richard thompson [facility] CERV DISC CERV DISC Diagnosis Active 2012-10-07 Memoria DIS W DIS W 13:29:00 l MYELOPAT MYELOPAT Richard thompson Active [facility] ILLNESS, ILLNESS, Diagnosis Active 2016-08-23 Memoria UNSPECIFIE UNSPECIFIE 21:24:00 l D D Active Luke [facility] Allergies, Adverse Reactions, Alerts Allergy Allergy Status Severity Reaction(s) Onset Inactive Treating Comm ents Source Name Type Date Date Clinician No Known DA Active [facility] Allergie 03-01 [facility] 00:00: Orthope 00 dic Hospita l dulaglut DA Active U [facility] diane 12-16 [place] 00:00: Orthope 00 dic Hospita l semaglut DA Active U [facility] diane 12-16 [place] 00:00: Orthope 00 dic Hospita l No Known DA Active [facility] Allergie 07-02 [facility] 00:00: Orthope 00 dic Hospita l NO KNOWN Allergy Active [facility] Dulaglut Allergy Active Arlin diane to Orthope substanc dic e Sports Medicin e NO KNOWN Drug Active [facility] ALLERGIE Class [facility] [place] [facility] STATINS- Allergy Active Myalgias [facility] HMG-COA to (muscle Family REDUCTAS substanc pain) Practi c E e e INHIBITO RS NKFA NKFA Active Memoria l Luke Family History Family Member Diagnosis Comments Start Date Stop Date Source Natural father Asthma [facility] Natural father Arthritis [facility] Natural father Asthma [facility] Natural father COPD [facility] Maternal aunt Stroke [facility]aternal aunt Diabetes [facility] Maternal aunt Hypertension [facility] Maternal aunt Stroke [facility] Natural brother Hypertension [facility] Maternal grandmother Hypertension [facility] Natural mother Diabetes [facility] Natural mother Heart disease [facility] Social History Social Habit Start Date Stop Date Quantity Comments Source Sexual orientation 2023-03-18 Heterosexual [facility] 23:36[facility]16 (finding[facility] Medical Center Gender identity 2021-11-07 Identifies as Method ist 10:21:00 female gender Hospital (finding) History [facility] Transport Non-Med Medical Center History [facility] Housing [facility] Places Lived Medical Cent er History [facility] 2023-03-19 2023-03-[address] [facility] Transport Med - In 00:00:00 00:00:00 [facility] the past 12 months, has lack of transportation kept you from medical appointments or from getting medications? History [facility] Housing 2023-03-19 2023-03-[address] [facility] Unable to Pay - In 00:00:00 [facility]00[facility] the last 12 months, was there a time when you were not able to pay the mortgage or rent on time? History [facility] Housing 2023-03-19 2023-03-19 No [facility] Homeless Last Year - 00:00:00 00:00:00 [facility] In the last 12 months, was there a time when you did not have a steady place to sleep or slept in a long term (including now)? Tobacco use and 2023-03-18 2023-03-18 Smokeless [address] [facility] exposure 00:00:00 00:00:00 non-user Medical Center History of Social 2022-12-13 2022-12-[address] function 00:00:00 00:00:00 Hospital Exposure to 2022-07-25 2022-08-04 Not sure University SARS-CoV-2 (event) 00:00:00 09:35:00 [facility] Cigarette pack-years 2021-11-28 2021-11-28 [place] [facility] 00:00:00 00:00:00 Alcohol intake 2019-06-03 2019-06-03 Current drinker of Me [facility] 00:00:00 00:00:00 alcohol (finding) Hospita l Social History 2016-01-11 2016-01-11 [facility] Vanessa burger 22:35:39 22:35:39 Sex Assigned At [birth year] F PREMA [facility] 00:00:00 00:00:00 Medical Center Smoking Status Start Date Stop Date Source Never smoked tobacco [facility] Tobacco smoking consumption [facility] Medications Ordered Filled Start Stop Current Ordering Indication Dosage Frequency Signature Comments Components Source Medication Medication Date Date Medication? Clinician (SIG) Name Name cinacalcet 2022-06 Yes [id number] 30mg Q.5D Take 1 M ethodi (SENSIPAR) 1-08 tablet (30 st 30 MG 00:00: mg total) Hospita tablet 00 by mouth 2 l (two) times a day. cinacalcet 2022-06 Yes [id number] 30mg Q.5D Take 1 M ethodi (SENSIPAR) 1-08 tablet (30 st 30 MG 00:00: mg total) Hospita tablet 00 by mouth 2 l (two) times a day. cinacalcet 2022-06 Yes [id number] 30mg Q.5D Take 1 M ethodi (SENSIPAR) 1-08 tablet (30 st 30 MG 00:00: mg total) Hospita tablet 00 by mouth 2 l (two) times a day. cinacalcet 2022-06 Yes [id number] 30mg Q.5D Take 1 M ethodi (SENSIPAR) 1-08 tablet (30 st 30 MG 00:00: mg total) Hospita tablet 00 by mouth 2 l (two) times a day. cinacalcet 2022-06- No [id number] TAKE 1 Methodi (SENSIPAR) 0-28 11-[address] 30 MG 00:00: 00:00 MOUTH Hospita tablet 00 :00 TWICE A l DAY cinacalcet 2022-06- No [id number] TAKE 1 [facility]i (SENSIPAR) 0-28 11-[address] 30 MG 00:00: 00:00 MOUTH Hospita tablet 00 :00 TWICE A l DAY cinacalcet 2022-06- No [id number] TAKE 1 [facility]i (SENSIPAR) 0-28 11-[address] 30 MG 00:00: 00:00 MOUTH Hospita tablet 00 :00 TWICE A l DAY cinacalcet 2022-06- No [id number] TAKE 1 Methodi (SENSIPAR) 0-28 11-08 TABLET [...] Medic al XR) 5-1,000 41 daily At [facility] er mg TBph noon. ezetimibe 2022-06 [...] Medic al XR) 5-1,000 41 daily At [facility] er mg TBph noon. ezetimibe 2022-06 [...] Medic al XR) 5-1,000 41 daily At [facility] er mg TBph noon. ezetimibe 2022-06 [...] [facility] -metFORMIN 0-10 tablet by Luke s (JENTADUETO 18:26: mouth Medic al XR) [...] mouth Center nightly. cloNIDine 2022-06- No .1mg Q.[id number] Take [address] HCL 0-10 10-10 [id number] tablet [facility]ukes (CATAPRES) 14:13: 00:00 3D (0.1 [...] mouth Center daily. cloNIDine 2022-06- No .1mg Q.[id number] Take [address] HCL 0-10 10-10 [id number] tablet Lukes (CATAPRES) 14:13: 00:00 3D (0.1 [...] dical MG tablet 39 :00 total) by [facility] r mouth 2 (two) times daily. atorvastati 2022-06- No 40mg QD Take [address] n (LIPITOR) 0-10 10-10 tablet (40 L ukes 40 MG 14:13: 00:00 mg total) Medica l tablet 39 :00 by mouth Center daily. cloNIDine 2022-06- No .1mg Q.[id number] Take [address] HCL 0-10 10-10 [id number] tablet [facility]ukes (CATAPRES) 14:13: 00:00 3D (0.1 [...] mouth Center daily. cloNIDine 2022-06- No .1mg Q.[id number] Take [address] HCL 0-10 10-10 [id number] tablet [facility]ukes (CATAPRES) 14:13: 00:00 3D (0.1 [...] mouth Center daily. cloNIDine 2022-06- No .1mg Q.[id number] Take [address] HCL 0-10 10-10 [id number] tablet [facility]ukes (CATAPRES) 14:13: 00:00 3D (0.1 [...] mouth Center daily. cloNIDine 2022-06- No .1mg Q.[id number] Take [address] HCL 0-10 10-10 [id number] tablet [facility]ukes (CATAPRES) 14:13: 00:00 3D (0.1 [...] mouth Center daily. cloNIDine 2022-06- No .1mg Q.[id number] Take [address] HCL 0-10 10-10 [id number] tablet [facility]ukes (CATAPRES) 14:13: 00:00 3D (0.1 [...] [address] e glycol 0-10 04-26 by mouth 2 Luke s (GLYCOLAX) 00:00: [...] Center packet daily for 30 days. temazepam 2022-06 No 7.5mg QD Take [address] (RESTORIL) 0-10 11-09 capsule Lukes 7.5 MG 00:00: 23:59 (7.5 mg Medical capsule 00 :00 total) by Center mouth nightly for 30 days. Max Daily Amount: 7.5 mg polyethylen 2022-06- No 17g Q.5D Take [address] e glycol 0-10 -09 by mouth 2 Luke s (GLYCOLAX) 00:00: 23:59 (two) Medic al 17 gram 00 :00 times Center packet daily for 30 days. temazepam 2022-06 No 7.5mg QD Take [address] [...] -acetaminop 0-10 10-20 tablet by Jessica pathak (NORME 00:00: 23:59 mouth Medic al 7.5-325) 00 :00 every 6 Center 7.5-325 mg (six) per tablet hours as needed for Pain for up to 10 days. Max Daily Amount: 4 tablets HYDROcodone 2022-06- No 1{tbl} Take [address] -acetaminop 0-10 10-20 tablet by Jessica pathak (RETSOF 00:00: 23:59 mouth Medic al 7.5-325) 00 :00 every 6 Center 7.5-325 mg (six) per tablet hours as needed for Pain for up to 10 days. Max Daily Amount: 4 tablets HYDROcodone 2022-06- No 1{tbl} Take [address] -acetaminop 0-10 10-20 tablet by Jessica pathak (RETSOF 00:00: 23:59 mouth Medic al 7.5-325) 00 :00 every 6 Center 7.5-325 mg (six) per tablet hours as needed for Pain for up to 10 days. Max Daily Amount: 4 tablets HYDROcodone 2022-06- No 1{tbl} Take [address] -acetaminop 0-10 10-20 tablet by Jessica pathak (NORME 00:00: 23:59 mouth Medic al 7.5-325) 00 [...] mouth Center daily. cloNIDine 2022-06 Yes .1mg Q.[id number] Take [address] HCL 0-05 [id number] tablet [facility]ukes (CATAPRES) 19:27: 3D (0.1 mg [...] [facility] -metFORMIN 0-05 tablet by Lubenjamin s (JENTADUETO 19:27: mouth Medic al XR) 5-1,000 [...] 39 by mouth Center daily. cinacalcet Yes [id number] TAKE 1 M ethodi (SENSIPAR) 3-[address] 30 MG 00:00: MOUTH Hospita tablet 00 TWICE A l DAY cinacalcet 0 Yes [id number] TAKE 1 M ethodi (SENSIPAR) 3-[address] 30 MG 00:00: MOUTH Hospita tablet 00 TWICE A l DAY cinacalcet 2022-0 Yes [id number] TAKE 1 M ethodi (SENSIPAR) 3-[address] 30 MG 00:00: MOUTH Hospita tablet 00 TWICE A l DAY cinacalcet 2022-0 Yes [id number] TAKE 1 M ethodi (SENSIPAR) 3-[address] 30 MG 00:00: MOUTH Hospita tablet 00 TWICE A l DAY cinacalcet 2022-0 Yes [id number] TAKE 1 M ethodi (SENSIPAR) 3-[address] 30 MG 00:00: MOUTH Hospita tablet 00 TWICE A l DAY cinacalcet 2022-0 Yes [id number] TAKE 1 M ethodi (SENSIPAR) 3-[address] 30 MG 00:00: MOUTH Hospita tablet 00 TWICE A l DAY cinacalcet 2022-0 2022- No [id number] TAKE 1 Methodi (SENSIPAR) 3-15 10-[address] 30 MG 00:00: 14:33 MOUTH Hospita tablet 00 :32 TWICE A l DAY cinacalcet 2022-0 3- No [id number] TAKE 1 [facility]i (SENSIPAR) 3-15 - TABLET BY st 30 MG 00:00: 14:33 MOUTH Hospita tablet 00 :32 TWICE A l DAY cinacalcet 2022-0 2022- No [id number] TAKE 1 [facility]i (SENSIPAR) 3-15 - TABLET BY st 30 MG 00:00: 14:33 MOUTH Hospita tablet 00 :32 TWICE A l DAY cinacalcet 2022-0 3- No [id number] TAKE 1 [facility] (SENSIPAR) 3-15 - TABLET BY st 30 MG 00:00: 14:33 MOUTH Hospita tablet 00 :32 TWICE A l DAY cinacalcet 2022-0 Yes [id number] TAKE 1 M ethodi (SENSIPAR) 07-[address] 30 MG 00:00: MOUTH Hospita tablet 00 TWICE A l DAY cinacalcet 2022-0 3- No [id number] TAKE 1 [facility]i (SENSIPAR) 07-[address] 30 MG 00:00: 00:00 MOUTH Hospita tablet 00 :00 TWICE A l DAY cinacalcet 2022-0 3- No [id number] TAKE 1 [facility] (SENSIPAR) 07-06- TABLET BY st 30 MG 00:00: 00:00 MOUTH Hospita tablet 00 :00 TWICE A l DAY cinacalcet 2022-0 3- No [id number] TAKE 1 [facility] (SENSIPAR) 07-06- TABLET BY st 30 MG 00:00: 00:00 MOUTH Hospita tablet 00 :00 TWICE A l DAY cinacalcet 2022-0 3- No [id number] TAKE 1 [facility] (SENSIPAR) 07-06-[address] 30 MG 00:00: 00:00 MOUTH Hospita tablet 00 :00 TWICE A l DAY cinacalcet 2023-0 3- No [id number] TAKE 1 [facility] (SENSIPAR) 07-06-[address] 30 MG 00:00: 00:00 MOUTH Hospita tablet 00 :00 TWICE A l DAY cinacalcet 2023-0 2023- No [id number] TAKE 1 [facility] (SENSIPAR) 07-06-[address] 30 MG 00:00: 00:00 MOUTH Hospita tablet 00 :00 TWICE A l DAY cinacalcet 2022- No [id number] TAKE 1 [facility]i (SENSIPAR) 07-[address] 30 MG 00:00: 00:00 MOUTH Hospita tablet 00 :00 TWICE A l DAY cinacalcet 2022- No [id number] TAKE 1 [facility] (SENSIPAR) 07-[address] 30 MG 00:00: 00:00 MOUTH Hospita tablet 00 :00 TWICE A l DAY cinacalcet 2022- No [id number] TAKE 1 [facility] (SENSIPAR) 07-[address] 30 MG 00:00: 00:00 MOUTH Hospita tablet 00 :00 TWICE A l DAY cinacalcet 2022- No [id number] TAKE 1 [facility] (SENSIPAR) 07-[address] 30 MG 00:00: 00:00 MOUTH Hospita tablet 00 :00 TWICE A l DAY cinacalcet 2021-06- No [id number] TAKE 1 [facility] (SENSIPAR) 08-[address] 30 MG 00:00: 18:04 MOUTH Hospita tablet 00 :09 TWICE A l DAY cinacalcet 2021-06- No [id number] TAKE 1 [facility] (SENSIPAR) 08-[address] 30 MG 00:00: 18:04 MOUTH Hospita tablet 00 :09 TWICE A l DAY cinacalcet 2021-06- No [id number] TAKE 1 [facility] (SENSIPAR) 08-[address] 30 MG 00:00: 18:04 MOUTH Hospita tablet 00 :09 TWICE A l DAY cinacalcet 2021-06- No [id number] TAKE 1 [facility] (SENSIPAR) 08-[address] 30 MG 00:00: 18:04 MOUTH Hospita tablet 00 :09 TWICE A l DAY cinacalcet 2021-06- No [id number] TAKE 1 [facility] (SENSIPAR) 08-[address] 30 MG 00:00: 18:04 MOUTH Hospita tablet 00 :09 TWICE A l DAY cinacalcet 2021-06- No [id number] TAKE 1 [facility] (SENSIPAR) 08-[address] 30 MG 00:00: 18:04 MOUTH Hospita tablet 00 :09 TWICE A l DAY cinacalcet 2021-06- No [id number] TAKE 1 [facility] (SENSIPAR) 08-[address] 30 MG 00:00: 18:04 MOUTH Hospita tablet 00 :09 TWICE A l DAY cinacalcet 2021-06- No [id number] TAKE 1 [facility] (SENSIPAR) 08-[address] 30 MG 00:00: 18:04 MOUTH Hospita tablet 00 :09 TWICE A l DAY cinacalcet 2021-06- No [id number] TAKE 1 [facility] (SENSIPAR) 08-[address] 30 MG 00:00: 18:04 MOUTH Hospita tablet 00 :09 TWICE A l DAY cinacalcet 2021-06- No [id number] TAKE 1 [facility] (SENSIPAR) 08-[address] 30 MG 00:00: 18:04 MOUTH Hospita tablet 00 :09 TWICE A l DAY cinacalcet 2021-06- No [id number] TAKE 1 [facility] (SENSIPAR) 08-[address] 30 MG 00:00: 18:04 MOUTH Hospita tablet 00 :09 TWICE A l DAY cinacalcet 2021-06- No [id number] TAKE 1 [facility] (SENSIPAR) 07-[address] 30 MG 00:00: 00:00 MOUTH Hospita tablet 00 :00 TWICE A l DAY cinacalcet 2021-06- No [id number] TAKE 1 [facility] (SENSIPAR) 07-[address] 30 MG 00:00: 00:00 MOUTH Hospita tablet 00 :00 TWICE A l DAY cinacalcet 2021-06- No [id number] TAKE 1 [facility] (SENSIPAR) 07-[address] 30 MG 00:00: 00:00 MOUTH Hospita tablet 00 :00 TWICE A l DAY cinacalcet 2021-06- No [id number] TAKE 1 [facility] (SENSIPAR) 07-[address] 30 MG 00:00: 00:00 MOUTH Hospita tablet 00 :00 TWICE A l DAY cinacalcet 2021-06- No [id number] TAKE 1 [facility] (SENSIPAR) 07-[address] 30 MG 00:00: 00:00 MOUTH Hospita tablet 00 :00 TWICE A l DAY cinacalcet 2021-06- No [id number] TAKE 1 [facility] (SENSIPAR) 07-[address] 30 MG 00:00: 00:00 MOUTH Hospita tablet 00 :00 TWICE A l DAY cinacalcet 2021-06- No [id number] TAKE 1 [facility] (SENSIPAR) 07-[address] 30 MG 00:00: 00:00 MOUTH Hospita tablet 00 :00 TWICE A l DAY cinacalcet 2021-06- No [id number] TAKE 1 [facility] (SENSIPAR) 07-[address] 30 MG 00:00: 00:00 MOUTH Hospita tablet 00 :00 TWICE A l DAY cinacalcet 2021-06- No [id number] TAKE 1 [facility] (SENSIPAR) 07-[address] 30 MG 00:00: 00:00 MOUTH Hospita tablet 00 :00 TWICE A l DAY cinacalcet 2021-06- No [id number] TAKE 1 [facility] (SENSIPAR) 07-[address] 30 MG 00:00: 00:00 MOUTH Hospita tablet 00 :00 TWICE A l DAY cinacalcet 2021-06- No [id number] TAKE 1 [facility] (SENSIPAR) 07-[address] 30 MG 00:00: 00:00 MOUTH Hospita tablet 00 :00 TWICE A l DAY cinacalcet 2021-06- No [id number] TAKE 1 [facility] (SENSIPAR) 05-[address] 30 MG 00:00: 00:00 MOUTH Hospita tablet 00 :00 TWICE A l DAY cinacalcet 2021-06- No [id number] TAKE 1 [facility] (SENSIPAR) 005-[address] 30 MG 00:00: 00:00 MOUTH Hospita tablet 00 :00 TWICE A l DAY cinacalcet 2021-06 No [id number] TAKE 1 [facility] (SENSIPAR) 0-24 -[address] 30 MG 00:00: 00:00 MOUTH Hospita tablet 00 :00 TWICE A l DAY cinacalcet 2021-06- No [id number] TAKE 1 [facility] (SENSIPAR) 0-24 - TABLET BY st 30 MG 00:00: 00:00 MOUTH Hospita tablet 00 :00 TWICE A l DAY cinacalcet 2021-06- No [id number] TAKE 1 [facility] (SENSIPAR) 0-24 - TABLET BY st 30 MG 00:00: 00:00 MOUTH Hospita tablet 00 :00 TWICE A l DAY cinacalcet 2021-06 No [id number] TAKE 1 [facility] (SENSIPAR) 0-24 - TABLET BY st 30 MG 00:00: 00:00 MOUTH Hospita tablet 00 :00 TWICE A l DAY cinacalcet 2021-06- No [id number] TAKE 1 [facility] (SENSIPAR) 0-24 - TABLET BY st 30 MG 00:00: 00:00 MOUTH Hospita tablet 00 :00 TWICE A l DAY cinacalcet 2021-06- No [id number] TAKE 1 [facility] (SENSIPAR) 0-24 - TABLET BY st 30 MG 00:00: 00:00 MOUTH Hospita tablet 00 :00 TWICE A l DAY cinacalcet 2021-06- No [id number] TAKE 1 [facility] (SENSIPAR) 0-24 - TABLET BY st 30 MG 00:00: 00:00 MOUTH Hospita tablet 00 :00 TWICE A l DAY cinacalcet 2021-06- No [id number] TAKE 1 [facility] (SENSIPAR) 0-24 - TABLET BY st 30 MG 00:00: 00:00 MOUTH Hospita tablet 00 :00 TWICE A l DAY cinacalcet 2021-06- No [id number] TAKE 1 [facility] (SENSIPAR) 0-24 - TABLET BY st 30 MG 00:00: 00:00 MOUTH Hospita tablet 00 :00 TWICE A l DAY irbesartan 0 Yes irbesartan U T (Avapro) 6-13 300 mg Health 300 MG 09:37: tablet RX tablet 16 by other linaGLIPtin Yes Tradjenta U T (Tradjenta) 6-13 5 mg Health 5 MG tablet 09:37: tablet RX 16 by other linaGLIPtin Yes Jentadueto [place] -metFORMIN 6- XR 5 Health HCl ER 09:37: mg-1,000 (Jentadueto 16 mg tablet, XR) 5-1000 extended MG tablet release sustained-r TAKE 1 elease 24 TABLET BY hour MOUTH EVERY DAY IN THE MORNING lisinopril Yes 20mg 20 mg. UT 20 MG -13 Health tablet 09:37: 16 NIFEdipine Yes nifedipine U T XL 6- ER 30 mg Health (Procardia 09:37: tablet,ext [...] carvedilol Yes carvedilol U T (Coreg) 25 6- 25 mg Health MG tablet 09:37: tablet 15 TAKE 1 TABLET BY MOUTH TWICE A DAY cloNIDine Yes clonidine UT (Catapres) 11-28 HCl 0.1 mg Hea lth 0.1 MG 09:37: tablet 1/2 tablet 15 TAB THREE TIMES DAILY cycloSPORIN 2022-0 Yes Restasis UT E 6-13 0.05 % [...] 09:37: FlexTouch) 15 100 UNIT/ML injection HYDROcodone 2- No [id number] 1{tbl} Q6H Take 1 UT -acetaminop 11-28 06-19 tablet by Manolo pathak ([facility]) 00:00: 04:59 mouth 5-325 MG 00 :00 every 6 tablet (six) hours if needed for severe pain for up to 5 days. cinacalcet Yes cinacalcet U T (Sensipar) 1-31 30 mg Health 30 MG 00:00: tablet tablet 00 TAKE 1 TABLET BY MOUTH TWICE A DAY cinacalcet 2- No [id number] TAKE 1 [facility] (SENSIPAR) 1-31 10-[address] 30 MG 00:00: 00:00 [facility] tablet 00 :00 TWICE A l DAY cinacalcet 2021- No [id number] TAKE 1 [facility] (SENSIPAR) 1-31 10-[address] 30 MG 00:00: 00:00 MOUTH [facility] tablet 00 :00 TWICE A l DAY cinacalcet 2- No [id number] TAKE 1 [facility] (SENSIPAR) 07-18 10-[address] 30 MG 00:00: 00:00 MOUTH [facility] tablet 00 :00 TWICE A l DAY cinacalcet 2- No [id number] TAKE 1 [facility] (SENSIPAR) 07-18-[address] 30 MG 00:00: 00:00 MOUTH [facility] tablet 00 :00 TWICE A l DAY cinacalcet 0 2- No [id number] TAKE 1 [facility] (SENSIPAR) 07-[address] 30 MG 00:00: 00:00 MOUTH [facility] tablet 00 :00 TWICE A l DAY cinacalcet 0 2- No [id number] TAKE 1 [facility] (SENSIPAR) 07-[address] 30 MG 00:00: 00:00 MOUTH [facility] tablet 00 :00 TWICE A l DAY cinacalcet 0 2- No [id number] TAKE 1 [facility] (SENSIPAR) 07-[address] 30 MG 00:00: 00:00 MOUTH [facility] tablet 00 :00 TWICE A l DAY cinacalcet 0 2021- No [id number] TAKE 1 [facility] (SENSIPAR) 07-[address] 30 MG 00:00: 00:00 MOUTH [facility] tablet 00 :00 TWICE A l DAY cinacalcet 0 2- No [id number] 30mg Q.5D Take 1 [facility] (SENSIPAR) 07-13 [...] 00 THREE l TIMES A DAY gabapentin 2019-0 Yes TAKE 1 Metho di (NEURONTIN) 6-[address] 300 mg 00:00: MOUTH [facility]osp[facility] capsule 00 THREE l TIMES A DAY gabapentin 2018-0 Yes TAKE 1 Metho di (NEURONTIN) 6-[address] 300 mg 00:00: MOUTH [facility] capsule 00 THREE l TIMES A DAY gabapentin 2018- Yes TAKE 1 Metho di (NEURONTIN) 6-[address] 300 mg 00:00: MOUTH [facility] capsule 00 THREE l TIMES A DAY gabapentin 2019-0 Yes TAKE 1 Metho di (NEURONTIN) 6-[address] 300 mg 00:00: MOUTH [facility] capsule 00 THREE l TIMES A DAY gabapentin 2019-0 Yes TAKE 1 Metho di (NEURONTIN) 6-[address] 300 mg 00:00: MOUTH [facility] capsule 00 THREE l TIMES A DAY gabapentin 2019-0 Yes TAKE 1 Metho di (NEURONTIN) 6-[address] 300 mg 00:00: MOUTH [facility] capsule 00 THREE l TIMES A DAY gabapentin 2019-0 Yes TAKE 1 Metho di (NEURONTIN) 6-[address] 300 mg 00:00: MOUTH [facility] capsule 00 THREE l TIMES A DAY gabapentin 2019-0 Yes TAKE 1 Metho di (NEURONTIN) 6-25 [...] A Hospita lancets DAY, l DIAGNOSIS E11.9 Tradjenta 5 Tradjenta 5 2019-0 No 5mg Tradjenta Arlin mg tablet 5 mg tablet 5 6-13 5 mg O rthope mg by oral mg by oral 00:00: tablet 5 dic route. route. 00 mg by oral Sport s route. Medicin e TRADJENTA 5 2019-0 Yes 5mg QD Take [...] IN THE tablet EVENING WITH DINNER metFORMIN 2018- Yes TAKE 1 [facility] XR 5-[address] (GLUCOPHAGE 00:00: MOUTH Hospi ta -XR) 500 mg 00 EVERY DAY l 24 hr IN THE tablet EVENING WITH DINNER metFORMIN 2018- Yes TAKE 1 [facility] XR 5-[address] (GLUCOPHAGE 00:00: MOUTH Hospi ta -XR) 500 mg 00 EVERY DAY l 24 hr IN THE tablet EVENING WITH DINNER metFORMIN Yes TAKE 1 [facility] XR 5-[address] (GLUCOPHAGE 00:00: MOUTH Hospi ta -XR) 500 mg 00 EVERY DAY l 24 hr IN THE tablet EVENING WITH DINNER SOLIQUA 2018- Yes INJECT [facility] 100/33 100 5-[address] unit-33 00:00: SKIN 30 Hospita mcg/mL 00 UNITS l insulin pen EVERY MORNING AND INCREASE TO 60 DIRECTED SOLIQUA 2018-0 Yes INJECT [facility] 100/33 100 5-[address] unit-33 00:00: SKIN 30 Hospita mcg/mL 00 UNITS l insulin pen EVERY MORNING AND INCREASE TO 60 DIRECTED SOLIQUA 2018-0 Yes INJECT [facility] 100/33 100 5-[address] unit-33 00:00: SKIN 30 Hospita mcg/mL 00 UNITS l insulin pen EVERY MORNING AND INCREASE TO 60 DIRECTED SOLIQUA 2018-0 Yes INJECT [facility] 100/33 100 5-[address] unit-33 00:00: SKIN 30 Hospita mcg/mL 00 UNITS l insulin pen EVERY MORNING AND INCREASE TO 60 DIRECTED SOLIQUA 2018-0 Yes INJECT [facility] 100/33 100 5-13 UNDER [...] 5-13 100/33 100 Orthope unit- unit-33 00:00: unit-33 dic mcg/mL mcg/mL 00 [...] dicin needed needed spasms as e needed Clarence 10 Clarence 10 No Clarence 10 A zalea mg-325 mg mg-325 mg [...] dicin needed needed spasms as e needed Clarence 10 Clarence 10 No Clarence 10 A zalea mg-325 mg mg-325 mg [...] dicin needed needed spasms as e needed Clarence 10 Clarence 10 No Clarence 10 A zalea mg-325 mg mg-325 mg [...] dicin needed needed spasms as e needed Clarence 10 Clarence 10 No Clarence 10 A zalea mg-325 mg mg-325 mg [...] dicin needed needed spasms as e needed Clarence 10 Clarence 10 No Clarence 10 A zalea mg-325 mg mg-325 mg 1-12 mg-325 mg Orthope tablet 1 Q tablet 1 Q 00:00: tablet 1 Q dic 4-6 HRS PRN 4-6 HRS PRN 00 4-6 HRS Sports PAIN PAIN PRN PAIN Medicin e Lipitor No Notes: Memoria 8-31 (Same As: l 02:00: Lipitor) [place] Lipitor No Notes: [facility] 8-31 (Same As: l 02:00: Lipitor) [place] Lipitor No Notes: Memoria 8-31 (Same As: l 02:00: Lipitor) Luke Lipitor No Notes: Memoria 8-31 (Same As: l 02:00: Lipitor) [place] Lipitor No Notes: Memoria 8-31 (Same As: [...] Memoria 8-31 (Same As: l 02:00: Lipitor) [place] Lipitor No Notes: [facility]oria 8-31 (Same As: l 02:00: Lipitor) [place] Lipitor No Notes: Memoria 8-31 (Same As: l 02:00: Lipitor) [place] Lipitor No Notes: [facility]oria 8-31 (Same As: l 02:00: Lipitor) [place] Lipitor No Notes: [facility]oria 8-31 (Same As: l 02:00: Lipitor) [place] Lipitor No Notes: [facility]oria 8-31 (Same As: l 02:00: Lipitor) [place] Lipitor No Notes: [facility]oria 8-31 (Same As: l 02:00: Lipitor) [place] Lipitor No Notes: [facility] 8-31 (Same As: l 02:00: Lipitor) [place] Lipitor No Notes: [facility]oria 8-31 (Same As: l 02:00: Lipitor) [place] 00 Lipitor No Notes: Memoria 8-31 (Same As: l 02:00: Lipitor) Luke 00 Acetaminoph Yes 1 tab, PO, Memoria en 325 MG / 8-29 Q6H, PRN l Hydrocodone 12:49: pain, # 90 [place] Bitartrate 00 tab, 0 10 MG Oral Refill(s), Tablet given to [[facility] patient ] morphine 15 Yes 15 mg [...] tab, PO, l tablet 12:49: TID, PRN [place] 00 as needed for muscle spasm, # 45 tab, 0 Refill(s) Acetaminoph Yes 1 tab, PO, Memoria en 325 MG / 8-29 Q6H, PRN l Hydrocodone 12:49: pain, # 90 [place] Bitartrate 00 tab, 0 10 MG Oral Refill(s), Tablet given to [[facility] patient ] morphine 15 Yes 15 mg [...] tab, PO, l tablet 12:49: TID, PRN [place] 00 as needed for muscle spasm, # 45 tab, 0 Refill(s) Acetaminoph 2016-0 Yes 1 tab, PO, Memoria en 325 MG / 8-29 Q6H, PRN l Hydrocodone 12:49: pain, # 90 [place] Bitartrate 00 tab, 0 10 MG Oral Refill(s), Tablet given to [[facility] patient ] morphine 15 2015- Yes 15 mg = 1 M emoria mg oral 8-29 tab, PO, l tablet, 12:49: Q12H, # 60 Herm robert extended 00 tab, 0 release Refill(s), given to patient bisacodyl 5 2015- Yes 5 mg = 1 Me moria mg oral 8-29 tab, PO, l enteric 12:49: TID, PRN Richard n coated 00 Constipati tablet on, 0 Refill(s) baclofen 10 0 Yes 5 mg = 0.5 Memoria mg oral 8-29 tab, PO, l tablet 12:49: TID, PRN [place] 00 as needed for muscle spasm, # 45 tab, 0 Refill(s) Acetaminoph 0 Yes 1 tab, PO, [facility] en 325 MG / 8-29 Q6H, PRN l Hydrocodone 12:49: pain, # 90 [place] Bitartrate 00 tab, 0 10 MG Oral Refill(s), Tablet given to [[facility] patient ] morphine 15 2015-0 Yes 15 mg = 1 M emoria mg oral 8-29 tab, PO, l tablet, 12:49: Q12H, # 60 Herm robert extended 00 tab, 0 release Refill(s), given to patient bisacodyl 5 2015-0 Yes 5 mg = 1 Me moria mg oral 8-29 tab, PO, l enteric 12:49: TID, PRN Richard n coated 00 Constipati tablet on, 0 Refill(s) baclofen 10 0 Yes 5 mg = 0.5 Memoria mg oral 8-29 tab, PO, l tablet 12:49: TID, PRN [place] 00 as needed for muscle spasm, # 45 tab, 0 Refill(s) Acetaminoph 2015-0 Yes 1 tab, PO, Memoria en 325 MG / 8-29 Q6H, PRN l Hydrocodone 12:49: pain, # 90 [place] Bitartrate 00 tab, 0 10 MG Oral Refill(s), Tablet given to [[facility] patient ] morphine 15 Yes 15 mg [...] tab, PO, l tablet 12:49: TID, PRN [place] 00 as needed for muscle spasm, # 45 tab, 0 Refill(s) Acetaminoph Yes 1 tab, PO, Memoria en 325 MG / 8-29 Q6H, PRN l Hydrocodone 12:49: pain, # 90 [place] Bitartrate 00 tab, 0 10 MG Oral Refill(s), Tablet given to [[facility] patient ] morphine 15 Yes 15 mg [...] tab, PO, l tablet 12:49: TID, PRN [place] 00 as needed for muscle spasm, # 45 tab, 0 Refill(s) Acetaminoph Yes 1 tab, PO, Memoria en 325 MG / 8-29 Q6H, PRN l Hydrocodone 12:49: pain, # 90 [place] Bitartrate 00 tab, 0 10 MG Oral Refill(s), Tablet given to [[facility] patient ] morphine 15 Yes 15 mg [...] tab, PO, l tablet 12:49: TID, PRN [place] 00 as needed for muscle spasm, # 45 tab, 0 Refill(s) Acetaminoph Yes 1 tab, PO, Memoria en 325 MG / 8-29 Q6H, PRN l Hydrocodone 12:49: pain, # 90 [place] Bitartrate 00 tab, 0 10 MG Oral Refill(s), Tablet given to [[facility] patient ] morphine 15 Yes 15 mg [...] 10 MG Oral Refill(s), Tablet given to [[facility] patient ] morphine 15 Yes 15 mg = 1 M emoria mg oral 8-29 tab, PO, l tablet, 12:49: Q12H, # 60 Herm robert extended 00 tab, 0 release Refill(s), given to patient bisacodyl 5 Yes 5 mg = 1 Me moria mg oral 8-29 tab, PO, l enteric 12:49: TID, PRN Richard n coated 00 Constipati tablet on, 0 Refill(s) baclofen 10 0 Yes 5 mg = 0.5 Memoria mg oral 8-29 tab, PO, l tablet 12:49: TID, PRN [place] 00 as needed for muscle spasm, # 45 tab, 0 Refill(s) Acetaminoph 2015-0 Yes 1 tab, PO, Memoria en 325 MG / 8-29 Q6H, PRN l Hydrocodone 12:49: pain, # 90 [place] Bitartrate 00 tab, 0 10 MG Oral Refill(s), Tablet given to [[facility] patient ] morphine 15 0 Yes 15 mg = 1 M emoria mg oral 8-29 tab, PO, l tablet, 12:49: Q12H, # 60 Herm robert extended 00 tab, 0 release Refill(s), given to patient bisacodyl 5 0 Yes 5 mg = 1 Me moria mg oral 8-29 tab, PO, l enteric 12:49: TID, PRN Richard n coated 00 Constipati tablet on, 0 Refill(s) Acetaminoph Yes 1 tab, PO, Memoria en 325 MG / 8-29 Q6H, PRN l Hydrocodone 12:49: pain, # 90 [place] Bitartrate 00 tab, 0 10 MG Oral Refill(s), Tablet given to [[facility] patient ] morphine 15 0 Yes 15 mg = 1 M emoria mg oral 8-29 tab, PO, l tablet, 12:49: Q12H, # 60 Herm robert extended 00 tab, 0 release Refill(s), given to patient bisacodyl 5 0 Yes 5 mg = 1 Me moria mg oral 8-29 tab, PO, l enteric 12:49: TID, PRN Richard n coated 00 Constipati tablet on, 0 Refill(s) baclofen 10 2015-0 Yes 5 mg = 0.5 Memoria mg oral 8-29 tab, PO, l tablet 12:49: TID, PRN [place] 00 as needed for muscle spasm, # 45 tab, 0 Refill(s) baclofen 10 2015-0 Yes 5 mg = 0.5 Mem[facility] mg oral 8-29 tab, PO, l tablet 12:49: TID, PRN Luke 00 as needed for muscle spasm, # 45 tab, 0 Refill(s) Acetaminoph Yes 1 tab, PO, Memoria en 325 MG / 8-29 Q6H, PRN l Hydrocodone 12:49: pain, # 90 [place] Bitartrate 00 tab, 0 10 MG Oral Refill(s), Tablet given to [[facility] patient ] morphine 15 Yes 15 mg [...] PRN l Hydrocodone 12:49: pain, # 90 [place] Bitartrate 00 tab, 0 10 MG Oral Refill(s), Tablet given to [[facility] patient ] morphine 15 Yes 15 mg [...] 10 MG Oral Refill(s), Tablet given to [[facility] patient ] morphine 15 Yes 15 mg [...] 10 MG Oral Refill(s), Tablet given to [[facility] patient ] morphine 15 Yes 15 mg [...] tab, PO, l tablet 12:49: TID, PRN [place] 00 as needed for muscle spasm, # 45 tab, 0 Refill(s) Acetaminoph 0 Yes 1 tab, PO, Memoria en 325 MG / 8-29 Q6H, PRN l Hydrocodone 12:49: pain, # 90 [place] Bitartrate 00 tab, 0 10 MG Oral Refill(s), Tablet given to [[facility] patient ] morphine 15 Yes 15 mg [...] PRN l Hydrocodone 12:49: pain, # 90 [place] Bitartrate 00 tab, 0 10 MG Oral Refill(s), Tablet given to [[facility] patient ] morphine 15 Yes 15 mg [...] PRN l Hydrocodone 12:49: pain, # 90 [place] Bitartrate 00 tab, 0 10 MG Oral Refill(s), Tablet given to [[facility] patient ] morphine 15 0 Yes 15 mg = 1 M emoria [...] tab, PO, l tablet 12:49: TID, PRN [place] 00 as needed for muscle spasm, # 45 tab, 0 Refill(s) Acetaminoph Yes 1 tab, PO, Memoria en 325 MG / 8-29 Q6H, PRN l Hydrocodone 12:49: pain, # 90 [place] Bitartrate 00 tab, 0 10 MG Oral Refill(s), Tablet given to [[facility] patient ] morphine 15 Yes 15 mg [...] oria 8-28 not crush l 02:00: (Same [place] 00 as:[place]ram[place] h SR, MS Contin) MS Contin No Notes: Do Mem oria 8-28 not crush l 02:00: (Same [place] 00 as:[place]ram[place] h SR, MS Contin) MS Contin No Notes: Do Mem oria 8-28 not crush l 02:00: (Same [place] as:[place]ram[place] h SR, MS Contin) MS Contin No Notes: Do Mem oria 8-28 not crush l 02:00: (Same [place] as:[place]ram[place] h SR, MS Contin) MS Contin No Notes: Do Mem oria 8-28 not crush l 02:00: (Same [place] as:[place]ram[place] h SR, MS Contin) MS Contin No Notes: Do Mem oria 8-28 not crush l 02:00: (Same [place] as:Oram[place] h SR, MS Contin) MS Contin No Notes: Do Mem oria 8-28 not crush l 02:00: (Same [place] as:[place]ram[place] h SR, MS Contin) MS Contin No Notes: Do Mem oria 8-28 not crush l 02:00: (Same [place] as:[place]ram[place] h SR, MS Contin) MS Contin No Notes: Do Mem oria 8-28 not crush l 02:00: (Same [place] as:[place]ram[place] h SR, MS Contin) MS Contin No Notes: Do Mem oria 8-28 not crush l 02:00: (Same [place] 00 as:Oramorp h SR, MS Contin) MS Contin No Notes: Do Mem oria 8-28 not crush l 02:00: (Same [place] 00 as:Oram[place] h SR, MS Contin) MS Contin No Notes: Do Mem oria 8-28 not crush l 02:00: (Same [place] 00 as:Oram[place] h SR, MS Contin) MS Contin 0 No Notes: Do Mem oria 8-28 not crush l 02:00: (Same [place] 00 as:Oram[place] h SR, MS Contin) MS Contin No Notes: Do Mem oria 8-28 not crush l 02:00: (Same [place] as:Oram[place] h SR, MS Contin) MS Contin No Notes: Do Mem oria 8-28 not crush l 02:00: (Same [place] 00 as:Oram[place] h SR, MS Contin) MS Contin No Notes: Do Mem oria 8-28 not crush l 02:00: (Same [place] as:Oram[place] h SR, MS Contin) MS Contin No Notes: Do Mem oria 8-28 not crush l 02:00: (Same [place] as:Oramorp h SR, MS Contin) MS Contin MS Contin No MS Contin Arlin 02-12 Orthope 00:00: dic 00 Sports Medicin e MS Contin MS Contin No MS Contin Arlin 8 Orthope 00:00: dic 00 Sports Medicin e Lipitor No Notes: Memoria 8-27 (Same As: l 02:00: Lipitor) [place] Lipitor No Notes: [facility]oria 8-27 (Same As: l 02:00: Lipitor) [place] Lipitor No Notes: [facility]oria 8-27 (Same As: l 02:00: Lipitor) [place] Lipitor No Notes: [facility]oria 8-27 (Same As: l 02:00: Lipitor) [place] Lipitor No Notes: [facility]oria 8-27 (Same As: l 02:00: Lipitor) Luke 00 Lipitor No Notes: Memoria 8-27 (Same As: l 02:00: Lipitor) [place] Lipitor No Notes: Memoria 8-27 (Same As: l 02:00: Lipitor) [place] Lipitor No Notes: [facility]oria 8-27 (Same As: l 02:00: Lipitor) Luke 00 Lipitor No Notes: Memoria 8-27 (Same As: l 02:00: Lipitor) [place] 00 Lipitor No Notes: Memoria 8-27 (Same As: l 02:00: Lipitor) Luke 00 Lipitor No Notes: Memoria 8-27 (Same As: l 02:00: Lipitor) [place] Lipitor No Notes: [facility]oria 8-27 (Same As: l 02:00: Lipitor) Luke 00 Lipitor No Notes: Memoria 8-27 (Same As: l 02:00: Lipitor) [place] 00 Lipitor No Notes: Memoria 8-27 (Same As: l 02:00: Lipitor) Luke 00 Lipitor No Notes: [facility]oria 8-27 (Same As: l 02:00: Lipitor) Luke 00 Lipitor No Notes: [facility]oria 8-27 (Same As: l 02:00: Lipitor) [place] 00 Lipitor No Notes: [facility]oria 8-27 (Same As: l 02:00: Lipitor) [place] 00 Lipitor No Notes: Memoria 8-27 (Same As: l 02:00: Lipitor) Luke 00 Lipitor No Notes: Memoria 8-27 (Same As: l 02:00: Lipitor) Luke 00 Tylenol No Notes: Do Memor ia [...] 8-26 not exceed l 23:00: 4 gm/day. [place] 00 (Same as: Tylenol) Tylenol No Notes: Do Memor ia 8-26 not exceed l 23:00: 4 gm/day. [place] 00 (Same as: Tylenol) Tylenol No Notes: Do Memor ia 8-26 not exceed l 23:00: 4 gm/day. Luke 00 (Same as: Tylenol) Tylenol No Notes: Do Memor ia 8-26 not exceed l 23:00: 4 gm/day. [place] 00 (Same as: Tylenol) Tylenol 2015-0 No Notes: Do Memor ia 8-26 not exceed l 23:00: 4 gm/day. (Same as: Tylenol) Tylenol 2015-0 No Notes: Do Memor ia 8-26 not exceed l 23:00: 4 gm/day. (Same as: Tylenol) Tylenol 0 No Notes: Do Memor ia 8-26 not exceed l 23:00: 4 gm/day. (Same as: Tylenol) Tylenol 2015-0 No Notes: Do Memor ia 8-26 not exceed l 23:00: 4 gm/day. (Same as: Tylenol) Tylenol 2015-0 No Notes: Do Memor ia 8-26 not exceed l 23:00: 4 gm/day. (Same as: Tylenol) Tylenol 0 No Notes: Do Memor ia 8-26 not exceed l 23:00: 4 gm/day. (Same as: Tylenol) Tylenol 2015-0 No Notes: Do Memor ia 8-26 not exceed l 23:00: 4 gm/day. (Same as: Tylenol) Tylenol 0 No Notes: Do Memor ia 8-26 not exceed l 23:00: 4 gm/day. (Same as: Tylenol) Tylenol 2015-0 No Notes: Do Memor ia 8-26 not exceed l 23:00: 4 gm/day. (Same as: Tylenol) Tylenol 2015-0 No Notes: Do Memor ia 8-26 not exceed l 23:00: 4 gm/day. (Same as: Tylenol) Tylenol 2015-0 No Notes: Do Memor ia 8-26 not exceed l 23:00: 4 gm/day. (Same as: Tylenol) Tylenol 2015-0 No Notes: Do Memor ia 8-26 not exceed l 23:00: 4 gm/day. (Same as: Tylenol) Bisacodyl 2015-0 No Notes: Memori a 8-26 (Same As: l 22:47: DulcolaMichael stearns Correctol) (Do Not Crush) "Do Not Crush" Bisacodyl No Notes: Memori a 8- (Same As: l 22:47: Dulcolax, Luke 00 Correctol) (Do Not Crush) "Do Not Crush" Bisacodyl No Notes: Memori a 8 (Same As: l 22:47: Dulcolax, Luke 00 Correctol) (Do Not Crush) "Do Not Crush" Bisacodyl No Notes: Memori a 8 (Same As: l 22:47: Dulcolax, Luke 00 Correctol) (Do Not Crush) "Do Not Crush" Bisacodyl No Notes: Memori a 8 (Same As: l 22:47: Dulcolax, [place] 00 Correctol) (Do Not Crush) "Do Not Crush" Bisacodyl No Notes: Memori a 8 (Same As: l 22:47: Dulcolax, [place] 00 Correctol) (Do Not Crush) "Do Not Crush" Bisacodyl No Notes: Memori a 02-10 (Same As: l 22:47: Dulcolax, [place] 00 Correctol) (Do Not Crush) "Do Not Crush" Bisacodyl No Notes: Memori a 02-10 (Same As: l 22:47: Dulcolax, [place] 00 Correctol) (Do Not Crush) "Do Not Crush" Bisacodyl No Notes: Memori a 02-10 (Same As: l 22:47: Dulcolax, [place] 00 Correctol) (Do Not Crush) "Do Not Crush" Bisacodyl No Notes: Memori a 8 (Same As: l 22:47: Dulcolax, [place] 00 Correctol) (Do Not Crush) "Do Not Crush" Bisacodyl No Notes: Memori a 8 (Same As: l 22:47: Dulcolax, [place] 00 Correctol) (Do Not Crush) "Do Not Crush" Bisacodyl No Notes: Memori a 8- (Same As: l 22:47: Dulcolax, Luke 00 Correctol) (Do Not Crush) "Do Not Crush" Bisacodyl No Notes: Memori a 8- (Same As: l 22:47: Dulcolax, [place] 00 Correctol) (Do Not Crush) "Do Not [...] Memoria 8- (Same as: l 22:00: Colace) [place] 00 (Do Not Crush) Docusate No Notes: [...] Memoria 8-26 (Same as: l 22:00: Colace) [place] 00 (Do Not Crush) Docusate No Notes: Memoria 8-26 (Same as: l 22:00: Colace) [place] 00 (Do Not Crush) Docusate No Notes: Memoria 8-26 (Same as: l 22:00: Colace) [place] 00 (Do Not Crush) Docusate No Notes: Memoria 8-26 (Same as: l 22:00: Colace) Luke 00 (Do Not Crush) Docusate No Notes: Memoria 8-26 (Same as: l 22:00: Colace) Luke 00 (Do Not Crush) Docusate No Notes: Memoria 8-26 (Same as: l 22:00: Colace) Luke 00 (Do Not Crush) Docusate No Notes: Memoria 8-26 (Same as: l 22:00: Colace) [place] 00 (Do Not Crush) Docusate No Notes: Memoria 8-26 (Same as: l 22:00: Colace) [place] 00 (Do Not Crush) Docusate No Notes: Memoria 8-26 (Same as: l 22:00: Colace) Luke 00 (Do Not Crush) Docusate No Notes: Memoria 8-26 (Same as: l 22:00: Colace) [place] 00 (Do Not Crush) Simethicone No Notes: Boy andrés 8-26 (Same as: l 21:04: Mylicon) [place] 00 Bisacodyl No Notes: Memori a 8-26 (Same As: l 21:04: Dulcolax, [place] 00 Bisco-Lax) Simethicone No Notes: Boy andrés 8-26 (Same as: l 21:04: Mylicon) [place] 00 Bisacodyl No Notes: Memori a 8-26 (Same As: l 21:04: Dulcolax, Luke 00 Bisco-Lax) Simethicone No Notes: Boy andrés 8-26 (Same as: l 21:04: Mylicon) Luke 00 Bisacodyl No Notes: Memori a 8-26 (Same As: l 21:04: Dulcolax, [place] 00 Bisco-Lax) Simethicone No Notes: Boy andrés 8-26 (Same as: l 21:04: Mylicon) [place] 00 Bisacodyl 2015- No Notes: Memori a 8-26 (Same As: l 21:04: Dulcolax, [place] 00 Bisco-Lax) Simethicone No Notes: Boy andrés 8-26 (Same as: l 21:04: Mylicon) Luke 00 Bisacodyl No Notes: Memori a 8-26 (Same As: l 21:04: Dulcolax, [place] 00 Bisco-Lax) Simethicone No Notes: Boy andrés 8-26 (Same as: l 21:04: Mylicon) [place] 00 Bisacodyl 2015- No Notes: Memori a 8-26 (Same As: l 21:04: Dulcolax, [place] 00 Bisco-Lax) Simethicone No Notes: Boy andrés 8-26 (Same as: l 21:04: Mylicon) Luke 00 Bisacodyl No Notes: Memori a 8-26 (Same As: l 21:04: Dulcolax, Luke 00 Bisco-Lax) Simethicone 2016-0 No Notes: Boy andrés 8-26 (Same as: l 21:04: Mylicon) Luke 00 Bisacodyl 2016-0 No Notes: Memori a 8-26 (Same As: l 21:04: Dulcolax, Luke 00 Bisco-Lax) Simethicone 2015- No Notes: Boy andrés 8-26 (Same as: l 21:04: Mylicon) [place] 00 Bisacodyl 2015-0 No Notes: Memori a 8-26 (Same As: l 21:04: Dulcolax, [place] 00 Bisco-Lax) Simethicone 2015- No Notes: Boy andrés 8-26 (Same as: l 21:04: Mylicon) [place] 00 Bisacodyl 2015- No Notes: Memori a 8-26 (Same As: l 21:04: Dulcolax, [place] 00 Bisco-Lax) Simethicone 2015-0 No Notes: Boy andrés 8-26 (Same as: l 21:04: Mylicon) [place] 00 Bisacodyl 2015-0 No Notes: Memori a 8-26 (Same As: l 21:04: Dulcolax, Luke 00 Bisco-Lax) Simethicone 2015-0 No Notes: Boy andrés 8-26 (Same as: l 21:04: Mylicon) [place] 00 Bisacodyl 2015-0 No Notes: Memori a 8-26 (Same As: l 21:04: Dulcolax, [place] 00 Bisco-Lax) Simethicone 2016-0 No Notes: Boy andrés 8-26 (Same as: l 21:04: Mylicon) [place] 00 Bisacodyl 2015-0 No Notes: Memori a 8-26 (Same As: l 21:04: Dulcolax, [place] 00 Bisco-Lax) Simethicone 2015-0 No Notes: Boy andrés 8-26 (Same as: l 21:04: Mylicon) [place] 00 Bisacodyl 2015-0 No Notes: Memori a 8-26 (Same As: l 21:04: Dulcolax, Luke 00 Bisco-Lax) Simethicone 0 No Notes: Boy andrés 8-26 (Same as: l 21:04: Mylicon) [place] 00 Bisacodyl 0 No Notes: Memori a 8-26 (Same As: l 21:04: Dulcolax, [place] 00 Bisco-Lax) Simethicone No Notes: Boy andrés 8-26 (Same as: l 21:04: Mylicon) [place] 00 Bisacodyl No Notes: Memori a 8-26 (Same As: l 21:04: Dulcolax, [place] 00 Bisco-Lax) Simethicone No Notes: Boy andrés 8-26 (Same as: l 21:04: Mylicon) Luke 00 Bisacodyl No Notes: Memori a 8-26 (Same As: l 21:04: Dulcolax, [place] 00 Bisco-Lax) Simethicone No Notes: Boy andrés 8-26 (Same as: l 21:04: Mylicon) [place] 00 Bisacodyl No Notes: Memori a 8-26 (Same As: l 21:04: Dulcolax, [place] 00 Bisco-Lax) Simethicone No Notes: Boy andrés 8-26 (Same as: l 21:04: Mylicon) [place] 00 Bisacodyl No Notes: Memori a 8-26 (Same As: l 21:04: Dulcolax, [place] 00 Bisco-Lax) Baclofen No Notes: Memoria 8-26 (Same As: l 14:00: Lioresal) [place] Baclofen No Notes: Memoria 8-26 (Same As: l 14:00: Lioresal) [place] Baclofen 0 No Notes: Memoria 8-26 (Same As: l 14:00: Lioresal) [place] Baclofen No Notes: Memoria 8-26 (Same As: l 14:00: Lioresal) Luke Baclofen No Notes: Memoria 8-26 (Same As: l 14:00: Lioresal) [place] Baclofen No Notes: Memoria 8-26 (Same As: l 14:00: Lioresal) Luke Baclofen No Notes: Memoria 8-26 (Same As: l 14:00: Lioresal) [place] Baclofen No Notes: Memoria 8-26 (Same As: l 14:00: Lioresal) [place] Baclofen No Notes: Memoria 8-26 (Same As: l 14:00: Lioresal) [place] Baclofen No Notes: Memoria 8-26 (Same As: l 14:00: Lioresal) Luke Baclofen No Notes: Memoria 8-26 (Same As: l 14:00: Lioresal) [place] Baclofen No Notes: Memoria 8-26 (Same As: l 14:00: Lioresal) Luke Baclofen No Notes: Memoria 8-26 (Same As: l 14:00: Lioresal) [place] Baclofen No Notes: Memoria 8-26 (Same As: l 14:00: Lioresal) Luke Baclofen No Notes: Memoria 8-26 (Same As: l 14:00: Lioresal) [place] Baclofen No Notes: Memoria 8-26 (Same As: l 14:00: Lioresal) [place] Baclofen No Notes: Memoria 8-26 (Same As: l 14:00: Lioresal) Luke Baclofen No Notes: Memoria 8-26 (Same As: l 14:00: Lioresal) Luke Baclofen No Notes: Memoria 8-26 (Same As: l 14:00: Lioresal) Luke Dilaudid No Notes: Memoria 8-25 (Same as: l 22:54: Dilaudid) [place] Dilaudid No Notes: Memoria 8-25 (Same as: l 22:54: Dilaudid) [place] Dilaudid No Notes: [facility]oria 8-25 (Same as: l 22:54: Dilaudid) [place] 00 Dilaudid No Notes: [facility] 8-25 (Same as: [...] Notes: Boy andrés en 325 MG / 8-25 (Same as: l Hydrocodone 22:52: [place] Anitra nn Bitartrate 00 325/5) Do 5 MG Oral not exceed Tablet 4gm/day of [Clarence acetaminop 5/325] hen. Acetaminoph No Notes: Boy andrés en 325 MG / 25 (Same as: l Hydrocodone 22:52: [place] Anitra nn Bitartrate 00 325/5) Do 5 MG Oral not exceed Tablet 4gm/day of [[place] acetaminop 5/325] hen. Acetaminoph No Notes: Boy andrés en 325 MG / 25 (Same as: l Hydrocodone 22:52: [place] Anitra nn Bitartrate 00 325/5) Do 5 MG Oral not exceed Tablet 4gm/day of [[place] acetaminop 5/325] hen. Acetaminoph No Notes: Boy andrés en 325 MG / 25 (Same as: l Hydrocodone 22:52: [place] Anitra nn Bitartrate 00 325/5) Do 5 MG Oral not exceed Tablet 4gm/day of [[place] acetaminop 5/325] hen. Acetaminoph No Notes: Boy andrés en 325 MG / 02-09 (Same as: l Hydrocodone 22:52: [place] Anitra nn Bitartrate 00 325/5) Do 5 MG Oral not exceed Tablet 4gm/day of [[place] acetaminop 5/325] hen. Acetaminoph No Notes: Boy andrés en 325 MG / 25 (Same as: l Hydrocodone 22:52: [place] Anitra nn Bitartrate 00 325/5) Do 5 MG Oral not exceed Tablet 4gm/day of [[place] acetaminop 5/325] hen. Acetaminoph No Notes: Boy andrés en 325 MG / 25 (Same as: l Hydrocodone 22:52: [place] Anitra nn Bitartrate 00 325/5) Do 5 MG Oral not exceed Tablet 4gm/day of [[place] acetaminop 5/325] hen. Acetaminoph No Notes: Boy andrés en 325 MG / 25 (Same as: l Hydrocodone 22:52: [place] Anitra nn Bitartrate 00 325/5) Do 5 MG Oral not exceed Tablet 4gm/day of [[place] acetaminop 5/325] hen. Acetaminoph No Notes: Boy andrés en 325 MG / 02-09 (Same as: l Hydrocodone 22:52: [place] Anitra nn Bitartrate 00 325/5) Do 5 MG Oral not exceed Tablet 4gm/day of [[place] acetaminop 5/325] hen. Acetaminoph No Notes: Boy andrés en 325 MG / 02-09 (Same as: l Hydrocodone 22:52: [place] Anitra nn Bitartrate 00 325/5) Do 5 MG Oral not exceed Tablet 4gm/day of [[place] acetaminop 5/325] hen. Acetaminoph No Notes: Boy andrés en 325 MG / 02-09 (Same as: l Hydrocodone 22:52: [place] Anitra nn Bitartrate 00 325/5) Do 5 MG Oral not exceed Tablet 4gm/day of [[place] acetaminop 5/325] hen. Acetaminoph No Notes: Boy andrés en 325 MG / 02-09 (Same as: l Hydrocodone 22:52: [place] Anitra nn Bitartrate 00 325/5) Do 5 MG Oral not exceed Tablet 4gm/day of [[place] acetaminop 5/325] hen. Acetaminoph No Notes: Boy andrés en 325 MG / 02-09 (Same as: l Hydrocodone 22:52: [place] Anitra nn Bitartrate 00 325/5) Do 5 MG Oral not exceed Tablet 4gm/day of [[place] acetaminop 5/325] hen. Acetaminoph No Notes: Boy andrés en 325 MG / 02-09 (Same as: l Hydrocodone 22:52: [place] Anitra nn Bitartrate 00 325/5) Do 5 MG Oral not exceed Tablet 4gm/day of [[place] acetaminop 5/325] hen. Acetaminoph No Notes: Boy andrés en 325 MG / 02-09 (Same as: l Hydrocodone 22:52: [place] Anitra nn Bitartrate 00 325/5) Do 5 MG Oral not exceed Tablet 4gm/day of [[facility] acetaminop 5/325] hen. Acetaminoph No Notes: Boy andrés en 325 MG / 8-25 (Same as: l Hydrocodone 22:52: [place] Anitra nn Bitartrate 00 325/5) Do 5 MG Oral not exceed Tablet 4gm/day of [[place] acetaminop 5/325] hen. Acetaminoph No Notes: Boy andrés en 325 MG / 825 (Same as: l Hydrocodone 22:52: [place] Anitra nn Bitartrate 00 325/5) Do 5 MG Oral not exceed Tablet 4gm/day of [[place] acetaminop 5/325] hen. Acetaminoph No Notes: Boy andrés en 325 MG / 8-25 (Same as: l Hydrocodone 22:52: [place] Anitra nn Bitartrate 00 325/5) Do 5 MG Oral not exceed Tablet 4gm/day of [[place] acetaminop 5/325] hen. Acetaminoph No Notes: Boy andrés en 325 MG / 825 (Same as: l Hydrocodone 22:52: [place] Naitra nn Bitartrate 00 325/5) Do 5 MG Oral not exceed Tablet 4gm/day of [[place] acetaminop 5/325] hen. Dilaudid Dilaudid No Dilaudid A zalea 8-25 [facility] 00:00: dic 00 [facility] Clarence 5 Clarence 5 No Clarence 5 Azal ea mg-325 mg mg-325 mg 8-25 mg-325 mg [facility] tablet tablet 00:00: tablet dic 00 [facility] Dilaudid Dilaudid No Dilaudid A zalea 8-25 [facility] 00:00: dic 00 [facility] Clarence 5 Clarence 5 No Clarence 5 Azal ea mg-325 mg mg-325 mg 8-25 mg-325 mg [facility] tablet tablet 00:00: tablet dic 00 [facility] tradjenta No tradjenta Me moria 8-24 5 mg, 1 l 20:00: tab, Drug [place] form: MISC, Route: PO, Daily, 02/09/16 15:00:00 [...] 5 mg, 1 l 20:00: tab, Drug [place] 00 form: MISC, Route: PO, Daily, 02/09/16 15:00:00 CDT, Duration: 30 day, Stop date: 03/10/16 9:00:00 CDT tradjenta 2015-0 No tradjenta, Me moria 8-24 5 mg, 1 l 20:00: tab, Drug [place] 00 form: MISC, Route: PO, Daily, 02/09/16 15:00:00 CDT, Duration: 30 day, Stop date: 03/10/16 9:00:00 CDT tradjenta 2015-0 No tradjenta, Me moria 8-24 5 mg, 1 l 20:00: tab, Drug [place] 00 form: MISC, Route: PO, Daily, 02/09/16 15:00:00 CDT, Duration: 30 day, Stop date: 03/10/16 9:00:00 CDT tradjenta 2015-0 No tradjenta, Me moria 8-24 5 mg, 1 l 20:00: tab, Drug [place] 00 form: MISC, Route: PO, Daily, 02/09/16 15:00:00 CDT, Duration: 30 day, Stop date: 03/10/16 9:00:00 CDT tradjenta 2016-0 No tradjenta, Me moria 8-24 5 mg, 1 l 20:00: tab, Drug [place] 00 form: MISC, Route: PO, Daily, 02/09/16 15:00:00 CDT, Duration: 30 day, Stop date: 03/10/16 9:00:00 CDT tradjenta 2015-0 No tradjenta, Me moria 8-24 5 mg, 1 l 20:00: tab, Drug [place] 00 form: MISC, Route: PO, Daily, 02/09/16 15:00:00 CDT, Duration: 30 day, Stop date: 03/10/16 9:00:00 CDT tradjenta 2015-0 No tradjenta, Me moria 8-24 5 mg, 1 l 20:00: tab, Drug [place] form: MISC, Route: PO, Daily, 02/09/16 15:00:00 CDT, Duration: 30 day, Stop date: 03/10/16 9:00:00 CDT tradjenta 2015-0 No tradjenta, Me moria 8-24 5 mg, 1 l 20:00: tab, Drug [place] form: MISC, Route: PO, Daily, 02/09/16 15:00:00 CDT, Duration: 30 day, Stop date: 03/10/16 9:00:00 CDT tradjenta 2015-0 No tradjenta, Me moria 8-24 5 mg, 1 l 20:00: tab, Drug [place] 00 form: MISC, Route: PO, Daily, 02/09/16 15:00:00 CDT, Duration: 30 day, Stop date: 03/10/16 9:00:00 CDT tradjenta 2015-0 No tradjenta, Me moria 8-24 5 mg, 1 l 20:00: tab, Drug [place] 00 form: MISC, Route: PO, Daily, 02/09/16 15:00:00 CDT, Duration: 30 day, Stop date: 03/10/16 9:00:00 CDT tradjenta 2015-0 No tradjenta, Me moria 8-24 5 mg, 1 l 20:00: tab, Drug [place] 00 form: MISC, Route: PO, Daily, 02/09/16 15:00:00 CDT, Duration: 30 day, Stop date: 03/10/16 9:00:00 CDT tradjenta 2016-0 No tradjenta, Me moria 8-24 5 mg, 1 l 20:00: tab, Drug [place] form: MISC, Route: PO, Daily, 02/09/16 15:00:00 CDT, Duration: 30 day, Stop date: 03/10/16 9:00:00 CDT tradjenta 2016-0 No tradjenta, Me moria 8-24 5 mg, 1 l 20:00: tab, Drug [place] form: MISC, Route: PO, Daily, 02/09/16 15:00:00 [...] 5 mg, 1 l 20:00: tab, Drug [place] form: MISC, Route: PO, Daily, 02/09/16 15:00:00 [...] Route: IV, l 0.9% IV 15:15: Start [place] 00 date: 02/09/16 10:15:00 CDT, Duration: 30 day, Stop date: 03/10/16 10:14:00 CDT, PRN Line Flush BD Normal No Notes: [facility] a Saline 24 (Same as: l Flush 15:15: BD [place] Posiflush) Sodium 2016-0 No 25 mL, [facility] Chloride 8-24 Route: IV, l 0.9% IV 15:15: Start [place] 00 date: 02/09/16 10:15:00 CDT, Duration: 30 day, Stop date: 03/10/16 10:14:00 CDT, PRN Line Flush BD Normal 0 No Notes: [facility] a Saline 8-24 (Same as: l Flush 15:15: BD [place] Posiflush) Sodium 2015-0 No 25 mL, [facility] Chloride 824 Route: IV, l 0.9% IV 15:15: Start date: 02/09/16 10:15:00 CDT, Duration: 30 day, Stop date: 03/10/16 10:14:00 CDT, PRN Line Flush BD Normal 0 No Notes: [facility] a Saline -24 (Same as: l Flush 15:15: BD [place] 00 Posiflush) Sodium 2015-0 No 25 mL, [facility] Chloride 824 Route: IV, l 0.9% IV 15:15: Start date: 02/09/16 10:15:00 CDT, Duration: 30 day, Stop date: 03/10/16 10:14:00 CDT, PRN Line Flush BD Normal 0 No Notes: [facility] a Saline -24 (Same as: l Flush 15:15: BD [place] 00 Posiflush) Sodium 2015-0 No 25 mL, [facility] Chloride 824 Route: [...] 8-24 (Same as: l Flush 15:15: BD [place] Posiflush) Sodium 2016-0 No 25 mL, [facility] Chloride 8-24 Route: IV, l 0.9% IV 15:15: Start date: 02/09/16 10:15:00 CDT, Duration: 30 day, Stop date: 03/10/16 10:14:00 CDT, PRN Line Flush BD Normal 2015-0 No Notes: [facility] a Saline 8-24 (Same as: l Flush 15:15: BD [place] Posiflush) Sodium 2015-0 No 25 mL, [facility] Chloride 824 Route: IV, l 0.9% IV 15:15: Start date: 02/09/16 10:15:00 CDT, Duration: 30 day, Stop date: 03/10/16 10:14:00 CDT, PRN Line Flush BD Normal 0 No Notes: [facility] a Saline -24 (Same as: l Flush 15:15: BD [place] 00 Posiflush) Sodium 2015-0 No 25 mL, [facility] Chloride 824 Route: IV, l 0.9% IV 15:15: date: [...] 8-24 (Same as: l Flush 15:15: BD [place] Posiflush) Sodium 2016-0 No 25 mL, [facility] Chloride 824 Route: IV, l 0.9% IV 15:15: Start 00 date: 02/09/16 10:15:00 CDT, Duration: 30 day, Stop date: 03/10/16 10:14:00 CDT, PRN Line Flush BD Normal 2015-0 No Notes: [facility] a Saline 8-24 (Same as: l Flush 15:15: BD [place] Posiflush) Sodium 2016-0 No 25 mL, Memoria [...] 8-24 (Same as: l Flush 15:15: BD [place] 00 Posiflush) Sodium 2015-0 No 25 mL, [facility] Chloride 8-24 Route: IV, l 0.9% IV 15:15: date: 02/09/16 10:15:00 CDT, Duration: 30 day, Stop date: 03/10/16 10:14:00 CDT, PRN Line Flush BD Normal 2015-0 No Notes: [facility] a Saline 8-24 (Same as: l Flush 15:15: BD [place] Posiflush) Sodium 2016-0 No 25 mL, [facility] Chloride 8-24 Route: IV, l 0.9% IV 15:15: Start date: 02/09/16 10:15:00 CDT, Duration: 30 day, Stop date: 03/10/16 10:14:00 CDT, PRN Line Flush BD Normal 2015-0 No Notes: [facility] a Saline 8-24 (Same as: l Flush 15:15: BD [place] Posiflush) Sodium 2016-0 No 25 mL, [facility] Chloride 02-08 Route: IV, l 0.9% IV 15:15: Start [place] 00 date: 02/09/16 10:15:00 CDT, Duration: 30 day, Stop date: 03/10/16 10:14:00 CDT, PRN Line Flush BD Normal No Notes: [facility] a Saline 24 (Same as: l Flush 15:15: BD [place] Posiflush) Sodium 2015-0 No 25 mL, [facility] Chloride 02-08 Route: IV, l 0.9% IV 15:15: Start date: 02/09/16 10:15:00 CDT, Duration: 30 day, Stop date: 03/10/16 10:14:00 CDT, PRN Line Flush BD Normal No Notes: [facility] a Saline 02-08 (Same as: l Flush 15:15: BD [place] 00 Posiflush) Sodium 2015-0 No 25 mL, [facility] Chloride 02-08 Route: IV, l 0.9% IV 15:15: Start date: 02/09/16 10:15:00 CDT, Duration: 30 day, Stop date: 03/10/16 10:14:00 CDT, PRN Line Flush BD Normal No Notes: [facility] a Saline 02-08 (Same as: l Flush 15:15: BD [place] 00 Posiflush) Sodium 2015-0 No 25 mL, [facility] Chloride 02-08 Route: IV, l 0.9% IV 15:15: Start date: 02/09/16 10:15:00 CDT, Duration: 30 day, Stop date: 03/10/16 10:14:00 CDT, PRN Line Flush BD Normal No Notes: [facility] a Saline 02-08 (Same as: l Flush 15:15: BD [place] 00 Posiflush) Spironolact No Notes: Boy andrés one 02-08 (Same As: l 14:00: Aldactone) [...] (Same as: Miralax) Spironolact No Notes: Boy andrés one 8-24 (Same As: l 14:00: Aldactone) irbesartan No Notes: Memor ia 8-24 (Same l 14:00: as:Avapro) Tradjenta No 5 mg, [facility] 8-24 Route: PO, l 14:00: Drug form: [place] 00 TAB, Daily, Dosing Weight 89.545, kg, [...] (Same as: Miralax) Spironolact No Notes: Boy andrés one 8-24 (Same As: l 14:00: Aldactone) [place] 00 irbesartan No Notes: Memor ia 8-24 (Same l 14:00: as:Avapro) Tradjenta No 5 mg, [facility] 8-24 Route: PO, l 14:00: Drug form: [place] 00 TAB, Daily, Dosing Weight 89.545, kg, [...] Dissolve l 14:00: in 8 oz of [place] 00 water or juice. (Same as: Miralax) Spironolact No Notes: Boy andrés one 8-24 [...] Dissolve l 14:00: in 8 oz of [place] 00 water or juice. (Same as: Miralax) Spironolact No Notes: Boy andrés one 8-24 [...] Dissolve l 14:00: in 8 oz of [place] 00 water or juice. (Same as: Miralax) Spironolact No Notes: Boy andrés one 8-24 (Same As: l 14:00: Aldactone) irbesartan No Notes: Memor ia 8-24 (Same l 14:00: as:Avapro) Tradjenta No 5 mg, [facility] 8-24 Route: PO, l 14:00: Drug form: [place] 00 TAB, Daily, Dosing Weight 89.545, kg, Start date: 02/09/16 9:00:00 CDT Furosemide No Notes: Memor ia 20 MG Oral 8-24 (Same as: l Tablet 14:00: Lasix) October Anitra cause GI upset. Give with food or milk. Vitamin D3 No Notes: Memor ia 8-24 Same as : l 14:00: Vitamin D3 [place] 00 Amlodipine No Notes: Memor ia 8-24 (Same as: l 14:00: Norvasc) [place] 00 Miralax No Notes: [facility] 8-24 Dissolve l 14:00: in 8 oz of [place] 00 water or juice. (Same as: Miralax) Spironolact No Notes: Boy andrés one 8-24 [...] Dissolve l 14:00: in 8 oz of [place] 00 water or juice. (Same as: Miralax) Spironolact No Notes: Boy andrés one 8-24 (Same As: l 14:00: Aldactone) irbesartan No Notes: Memor ia 8-24 (Same l 14:00: as:Avapro) Tradjenta No 5 mg, [facility] 8-24 Route: PO, l 14:00: Drug form: [place] 00 TAB, Daily, Dosing Weight 89.545, kg, [...] Dissolve l 14:00: in 8 oz of [place] 00 water or juice. (Same as: Miralax) Spironolact No Notes: Boy andrés one 8-24 (Same As: l 14:00: Aldactone) irbesartan No Notes: Memor ia 8-24 (Same l 14:00: as:Avapro) Tradjenta No 5 mg, [facility] 8-24 Route: PO, l 14:00: Drug form: [place] 00 TAB, Daily, Dosing Weight 89.545, kg, [...] Dissolve l 14:00: in 8 oz of [place] 00 water or juice. (Same as: Miralax) Spironolact No Notes: Boy andrés one 8-24 (Same As: l 14:00: Aldactone) irbesartan No Notes: Memor ia 8-24 (Same l 14:00: as:Avapro) Tradjenta No 5 mg, [facility] 8-24 Route: PO, l 14:00: Drug form: [place] 00 TAB, Daily, Dosing Weight 89.545, kg, [...] Dissolve l 14:00: in 8 oz of [place] 00 water or juice. (Same as: Miralax) Spironolact No Notes: Boy andrés one 8-24 [...] (Same as: Miralax) Spironolact No Notes: Boy andrés one 8-24 [...] Dissolve l 14:00: in 8 oz of [place] 00 water or juice. (Same as: Miralax) Spironolact No Notes: Boy andrés one 8-24 [...] Dissolve l 14:00: in 8 oz of [place] 00 water or juice. (Same as: Miralax) Spironolact No Notes: Boy andrés one 8-24 (Same As: l 14:00: Aldactone) irbesartan No Notes: Memor ia 8-24 (Same l 14:00: as:Avapro) Tradjenta No 5 mg, [facility] 8-24 Route: PO, l 14:00: Drug form: [place] 00 TAB, Daily, Dosing Weight 89.545, kg, [...] Dissolve l 14:00: in 8 oz of [place] 00 water or juice. (Same as: Miralax) Spironolact No Notes: Boy andrés one 8-24 (Same As: l 14:00: Aldactone) Spironolact No Notes: Boy andrés one 8-24 (Same As: l 14:00: Aldactone) irbesartan No Notes: Memor ia 8-24 (Same l 14:00: as:Avapro) Tradjenta No 5 mg, [facility] 8-24 Route: PO, l 14:00: Drug form: [place] 00 TAB, Daily, Dosing Weight 89.545, kg, [...] 00 water or juice. (Same as: Miralax) irbesartan No Notes: Memor ia 8-24 (Same l 14:00: as:Avapro) Tradjenta 0 No 5 mg, [facility] 8-24 Route: PO, l 14:00: Drug form: [place] 00 TAB, Daily, Dosing Weight 89.545, kg, Start date: 02/09/16 9:00:00 CDT Furosemide No Notes: Memor ia 20 MG Oral 8-24 (Same as: l Tablet 14:00: Lasix) October Anitra nn cause GI upset. Give with food or milk. Vitamin D3 No Notes: [facility] ia 8-24 Same as : l 14:00: Vitamin D3 Spironolact No Notes: Boy andrés one 8-24 [...] Dissolve l 14:00: in 8 oz of [place] 00 water or juice. (Same as: Miralax) Amlodipine No Notes: Memor ia 8-24 (Same as: l 14:00: Norvasc) Miralax No Notes: [facility] 8-24 Dissolve l 14:00: in 8 oz of [place] 00 water or juice. (Same as: Miralax) Spironolact No Notes: Boy andrés one 8-24 [...] Dissolve l 14:00: in 8 oz of [place] 00 water or juice. (Same as: Miralax) Spironolact No Notes: Boy andrés one 8-24 [...] Roll in l Human 06:52: palms of [place] 00 hands gently; Do not shake vigorously . (Same as: NovoLOG) "single patient use only" WASTE: F/P - Black; E - [employer] Trash Bin Stable for 28 days at room temperatur e. Expires in days from ____Date Glucagon 2015-0 No 1 mg, [facility] 8-24 Route: IM, l 06:52: Drug form: [place] 00 PDR/INJ, PRN, Dosing Weight 89.545, kg, PRN Blood Glucose Results, Start date: 02/09/16 1:52:00 CDT, Duration: 30 day, Stop date: 03/10/16 1:51:00 CDT Dextrose 2015-0 No 25 gm, 50 Boy andrés 50% Syringe 8-24 mL, Route: l 06:52: IVP, Drug [place] 00 Form: INJ, Dosing Weight 89.545, kg, PRN, PRN Blood Glucose Results, Start date: 02/09/16 1:52:00 CDT, Duration: 30 day, Stop date: 03/10/16 1:51:00 CDT Insulin, 2016-0 No Notes: [facility] Aspart, 824 Roll in l Human 06:52: palms of [place] 00 hands gently; Do not shake vigorously . (Same as: NovoLOG) "single patient use only" WASTE: F/P - Black; E - [facility] Trash [facility] Expires in days from ____Date Glucagon 2015-0 No 1 mg, [facility] 824 Route: IM, l 06:52: Drug form: [place] 00 PDR/INJ, PRN, Dosing Weight 89.545, kg, PRN Blood Glucose Results, Start date: 02/09/16 1:52:00 CDT, Duration: 30 day, Stop date: 03/10/16 1:51:00 CDT Dextrose 2016-0 No 25 gm, 50 Boy andrés 50% [...] Dextrose 2015-0 No 25 gm, 50 Boy andrés 50% Syringe 8-24 mL, Route: l 06:52: IVP, Drug [place] 00 Form: INJ, Dosing Weight 89.545, kg, PRN, PRN Blood Glucose Results, Start date: 02/09/16 1:52:00 CDT, Duration: 30 day, Stop date: 03/10/16 1:51:00 CDT Insulin, 2015-0 No Notes: [facility] Aspart, 8-24 Roll in l Human 06:52: palms of [place] 00 hands gently; Do not shake vigorously . (Same as: NovoLOG) "single patient use only" WASTE: F/P - Black; E - [employer] Trash Bin Stable for 28 days at room temperatur e. Expires in days from ____Date Glucagon 2016-0 No 1 mg, [facility] 8-24 Route: IM, l 06:52: Drug form: [place] 00 PDR/INJ, PRN, Dosing Weight 89.545, kg, PRN Blood Glucose Results, Start date: 02/09/16 1:52:00 CDT, Duration: 30 day, Stop date: 03/10/16 1:51:00 CDT Dextrose 2016-0 No 25 gm, 50 Boy andrés 50% [...] 8-24 Route: IM, l 06:52: Drug form: [place] 00 PDR/INJ, PRN, Dosing Weight 89.545, kg, PRN Blood Glucose Results, Start date: 02/09/16 1:52:00 CDT, Duration: 30 day, Stop date: 03/10/16 1:51:00 CDT Dextrose 0 No 25 gm, 50 Boy andrés 50% Syringe 8-24 mL, Route: l 06:52: IVP, Drug Form: INJ, Dosing Weight 89.545, kg, PRN, PRN Blood Glucose Results, Start date: 02/09/16 1:52:00 CDT, Duration: 30 day, Stop date: 03/10/16 1:51:00 CDT Insulin, 2015-0 No Notes: [facility] Aspart, 8-24 Roll in l Human 06:52: palms of [place] 00 hands gently; Do not shake vigorously [...] Dextrose 2016-0 No 25 gm, 50 Boy andrés 50% Syringe 8-24 mL, Route: l 06:52: IVP, Drug [place] 00 Form: INJ, Dosing Weight 89.545, kg, PRN, PRN Blood Glucose Results, Start date: 02/09/16 1:52:00 CDT, Duration: 30 day, Stop date: 03/10/16 1:51:00 CDT Insulin, 2016-0 No Notes: [facility] Aspart, 8-24 Roll in l Human 06:52: palms of [place] 00 hands gently; Do not shake vigorously . (Same as: NovoLOG) "single patient use only" WASTE: F/P - Black; E - [employer] Trash Bin Stable for 28 days at room temperatur e. Expires in days from ____Date Glucagon 2016-0 No 1 mg, [facility] 8-24 Route: IM, l 06:52: Drug form: [place] 00 PDR/INJ, PRN, Dosing Weight 89.545, kg, PRN Blood Glucose Results, Start date: 02/09/16 1:52:00 CDT, Duration: 30 day, Stop date: 03/10/16 1:51:00 CDT Dextrose 2016-0 No 25 gm, 50 Boy andrés 50% Syringe 8-24 mL, Route: l 06:52: IVP, Drug [place] 00 Form: INJ, Dosing Weight 89.545, kg, PRN, PRN Blood Glucose Results, Start date: 02/09/16 1:52:00 CDT, Duration: 30 day, Stop date: 03/10/16 1:51:00 CDT Insulin, 2016-0 No Notes: [facility] Aspart, 8-24 Roll in l Human 06:52: palms of [place] 00 hands gently; Do not shake vigorously [...] Dextrose 2015-0 No 25 gm, 50 Boy andrés 50% Syringe 8-24 mL, Route: l 06:52: IVP, Drug [place] 00 Form: INJ, Dosing Weight 89.545, kg, PRN, PRN Blood Glucose Results, Start date: 02/09/16 1:52:00 CDT, Duration: 30 day, Stop date: 03/10/16 1:51:00 CDT Insulin, 2015-0 No Notes: [facility] Aspart, 8-24 Roll in l Human 06:52: palms of [place] 00 hands gently; Do not shake vigorously . (Same as: NovoLOG) "single patient use only" WASTE: F/P - Black; E - [employer] Trash Bin Stable for 28 days at room temperatur e. Expires in days from ____Date Glucagon 2015-0 No 1 mg, [facility] 824 Route: IM, l 06:52: Drug form: [place] 00 PDR/INJ, PRN, Dosing Weight 89.545, kg, PRN Blood Glucose Results, Start date: 02/09/16 1:52:00 CDT, Duration: 30 day, Stop date: 03/10/16 1:51:00 CDT Dextrose 2015-0 No 25 gm, 50 Boy andrés 50% Syringe 8-24 mL, Route: l 06:52: IVP, Drug [place] 00 Form: INJ, Dosing Weight 89.545, kg, PRN, PRN Blood Glucose Results, Start date: 02/09/16 1:52:00 CDT, Duration: 30 day, Stop date: 03/10/16 1:51:00 CDT Insulin, 2016-0 No Notes: [facility] Aspart, 8-24 Roll in l Human 06:52: palms of [place] 00 hands gently; Do not shake vigorously [...] Dextrose 2016-0 No 25 gm, 50 Boy andrés 50% Syringe 8-24 mL, Route: l 06:52: IVP, Drug Form: INJ, Dosing Weight 89.545, kg, PRN, PRN Blood Glucose Results, Start date: 02/09/16 1:52:00 CDT, Duration: 30 day, Stop date: 03/10/16 1:51:00 CDT Insulin, 2015-0 No Notes: [facility] Aspart, 824 Roll in l Human 06:52: palms of hands gently; Do not shake vigorously . (Same as: NovoLOG) "single patient use only" WASTE: F/P - Black; E - Municipal Trash Bin Stable for 28 days at room temperatur e. Expires in days from ____Date Glucagon 2015-0 No 1 mg, [facility] 824 Route: IM, l 06:52: Drug form: [place] 00 PDR/INJ, PRN, Dosing Weight 89.545, kg, PRN Blood Glucose Results, Start date: 02/09/16 1:52:00 CDT, Duration: 30 day, Stop date: 03/10/16 1:51:00 CDT Dextrose 2016-0 No 25 gm, 50 Boy andrés 50% Syringe 8-24 mL, Route: l 06:52: IVP, Drug [place] 00 Form: INJ, Dosing Weight 89.545, kg, [...] Dextrose 2016-0 No 25 gm, 50 Boy andrés 50% Syringe 8-24 mL, Route: l 06:52: IVP, Drug [place] 00 Form: INJ, Dosing Weight 89.545, kg, PRN, PRN Blood Glucose Results, Start date: 02/09/16 1:52:00 CDT, Duration: 30 day, Stop date: 03/10/16 1:51:00 CDT Insulin, 2016-0 No Notes: [facility] Aspart, 8-24 Roll in l Human 06:52: palms of [place] 00 hands gently; Do not shake vigorously [...] Dextrose 2016-0 No 25 gm, 50 Boy andrés 50% Syringe 8-24 mL, Route: l 06:52: IVP, Drug [place] 00 Form: INJ, Dosing Weight 89.545, kg, PRN, PRN Blood Glucose Results, Start date: 02/09/16 1:52:00 CDT, Duration: 30 day, Stop date: 03/10/16 1:51:00 CDT Insulin, 2015-0 No Notes: Memoria Aspart, 8-24 Roll in l Human 06:52: [facility] of [place] 00 hands gently; Do not shake vigorously . (Same as: NovoLOG) "single patient use only" WASTE: F/P - Black; E - Municipal Trash Bin Stable for 28 days at room temperatur e. Expires in days from ____Date Glucagon 0 No 1 mg, Memoria 8-24 Route: IM, l 06:52: Drug form: [place] 00 PDR/INJ, PRN, Dosing Weight 89.545, kg, PRN Blood Glucose Results, Start date: 02/09/16 1:52:00 CDT, Duration: 30 day, Stop date: 03/10/16 1:51:00 CDT Dextrose 0 No 25 gm, 50 Boy andrés 50% [...] 8-24 Route: IM, l 06:52: Drug form: [place] 00 PDR/INJ, PRN, Dosing Weight 89.545, kg, PRN Blood Glucose Results, Start date: 02/09/16 1:52:00 CDT, Duration: 30 day, Stop date: 03/10/16 1:51:00 CDT Dextrose 0 No 25 gm, 50 Boy andrés 50% Syringe 8-24 mL, Route: l 06:52: IVP, Drug [place] 00 Form: INJ, Dosing Weight 89.545, kg, [...] 8-24 Route: IM, l 06:52: Drug form: [place] 00 PDR/INJ, PRN, Dosing Weight 89.545, kg, PRN Blood Glucose Results, Start date: 02/09/16 1:52:00 CDT, Duration: 30 day, Stop date: 03/10/16 1:51:00 CDT Dextrose 2015-0 No 25 gm, 50 Boy andrés 50% Syringe 8-24 mL, Route: l 06:52: IVP, Drug [place] Form: INJ, Dosing Weight 89.545, kg, PRN, [...] 8-24 Route: IM, l 06:52: Drug form: [place] 00 PDR/INJ, PRN, Dosing Weight 89.545, kg, PRN Blood Glucose Results, Start date: 02/09/16 1:52:00 CDT, Duration: 30 day, Stop date: 03/10/16 1:51:00 CDT Dextrose 2016-0 No 25 gm, 50 Boy andrés 50% [...] Dextrose 2016-0 No 25 gm, 50 Boy andrés 50% Syringe 8-24 mL, Route: l 06:52: IVP, Drug [place] 00 Form: INJ, Dosing Weight 89.545, kg, PRN, PRN Blood Glucose Results, Start date: 02/09/16 1:52:00 CDT, Duration: 30 day, Stop date: 03/10/16 1:51:00 CDT Insulin, 2016-0 No Notes: Memoria Aspart, 8-24 Roll in l Human 06:52: [facility] of [place] 00 hands gently; Do not shake vigorously [...] andrés 8-24 Drug form: l 02:00: TAB, [place] 00 Bedtime, Dosing Weight 89.545, kg, Start [...] ia 8-24 Give with l 02:00: food. [place] 00 (Same As: Coreg) Crestor No Route: PO, Boy andrés 8-24 Drug form: l 02:00: TAB, [place] 00 Bedtime, Dosing Weight 89.545, kg, Start [...] Coreg) Crestor No Route: PO, Boy andrés 8-24 Drug form: l 02:00: TAB, Luke [...] ia 8-24 Give with l 02:00: food. [place] (Same As: Coreg) Crestor No Route: PO, Boy andrés 8-24 Drug form: l 02:00: TAB, [place] 00 Bedtime, Dosing Weight 89.545, kg, Start [...] ia 8-24 Give with l 02:00: food. [place] 00 (Same As: Coreg) [facility] No Route: PO, Boy andrés 8-24 Drug form: l 02:00: TAB, Luke [...] Coreg) Crestor No Route: PO, Boy andrés 8-24 Drug form: l 02:00: TAB, [place] 00 Bedtime, Dosing Weight 89.545, kg, Start [...] ia 8-24 Give with l 02:00: food. [place] 00 (Same As: Coreg) Crestor No Route: PO, Boy andrés 8-24 Drug form: l 02:00: TAB, [place] 00 Bedtime, Dosing Weight 89.545, kg, Start [...] ia 8-24 Give with l 02:00: food. [place] (Same As: Coreg) Crestor No Route: PO, Boy andrés 8-24 Drug form: l 02:00: TAB, [place] 00 Bedtime, Dosing Weight 89.545, kg, Start [...] Coreg) Crestor No Route: PO, Boy andrés 8-24 Drug form: l 02:00: TAB, Luke [...] ia 8-24 Give with l 02:00: food. [place] 00 (Same As: Coreg) Crestor No Route: PO, Boy andrés 8-24 Drug form: l 02:00: TAB, [place] 00 Bedtime, Dosing Weight 89.545, kg, Start date: 02/08/16 21:00:00 CDT, Duration: 30 day, Stop date: 03/08/16 21:00:00 CDT Insulin 0 No Notes: Memoria Glargine 8-24 Same as [...] Coreg) Crestor No Route: PO, Boy andrés 8-24 Drug form: l 02:00: TAB, [place] 00 Bedtime, Dosing Weight 89.545, kg, Start date: 02/08/16 21:00:00 CDT, Duration: 30 day, Stop date: 03/08/16 21:00:00 CDT Crest[place] No Route: PO, Boy andrés 8-24 Drug form: l 02:00: TAB, Luke [...] ia 8-24 Give with l 02:00: food. [place] 00 (Same As: Coreg) Insulin No Notes: Memoria Glargine 8-24 Same [...] ia 8-24 Give with l 02:00: food. [place] 00 (Same As: Coreg) Crestor No Route: PO, Boy andrés 8-24 Drug form: l 02:00: TAB, Luke [...] l 02:00: food. Luke (Same As: Coreg) [facility] No Route: PO, Boy andrés 8-24 Drug form: l 02:00: TAB, [place] 00 Bedtime, Dosing Weight 89.545, kg, Start [...] 02:00: food. Luke 00 (Same As: Coreg) [facility] No Route: PO, Boy andrés 8-24 Drug form: l 02:00: TAB, [place] 00 Bedtime, Dosing Weight 89.545, kg, Start [...] ia 8-24 Give with l 02:00: food. [place] (Same As: Coreg) Crestor No Route: PO, Boy andrés 8-24 Drug form: l 02:00: TAB, [place] 00 Bedtime, Dosing Weight 89.545, kg, Start [...] ia 8-24 Give with l 02:00: food. [place] (Same As: Coreg) Crestor No Route: PO, Boy andrés 8-24 Drug form: l 02:00: TAB, Luke [...] Coreg) Crestor No Route: PO, Boy andrés 8-24 Drug form: l 02:00: TAB, Luke [...] Coreg) Crestor No Route: PO, Boy andrés 8-24 Drug form: l 02:00: TAB, Luke [...] ia 8-24 Give with l 02:00: food. [place] (Same As: Coreg) Crestor 5 Crestor 5 [...] emoria 8-23 Daily, 0 l 23:47: Refill(s) [place] 00 Docusate Yes 100 mg = 1 [...] tab, PO, l Tablet 23:47: Daily, 0 [place] [Tradjenta] 00 Refill(s) 3 ML Yes 50 [...] emoria 8-23 Daily, 0 l 23:47: Refill(s) [place] Docusate Yes 100 mg = 1 Mem oria Sodium 100 8-23 cap, PO, l MG Oral 23:47: BID, 0 [place] Capsule 00 Refill(s) [Colace] Linagliptin No 5 [...] PO, l MG Oral 23:47: BID, 0 [place] Capsule 00 Refill(s) [Colace] Linagliptin No 5 mg = 1 Me moria 5 MG Oral 8-23 tab, PO, l Tablet 23:47: Daily, 0 [place] [Tradjenta] 00 Refill(s) 3 ML Yes 50 units, Memoria Insulin 8-23 SUB-Q, l Glargine 23:47: Bedtime, 0 Her kowalski 100 UNT/ML 00 Refill(s) Prefilled Syringe [Lantus] glimepiride Yes 4 mg, PO, M emoria 8-23 Daily, 0 l 23:47: Refill(s) Luke Docusate Yes 100 mg = 1 Mem oria Sodium 100 8-23 cap, PO, l MG Oral 23:47: BID, 0 [place] Capsule 00 Refill(s) [Colace] Linagliptin No 5 [...] tab, PO, l Tablet 23:47: Daily, 0 [place] [Tradjenta] 00 Refill(s) 3 ML Yes 50 units, Memoria Insulin 8-23 SUB-Q, l Glargine 23:47: Bedtime, 0 Her kowalski 100 UNT/ML 00 Refill(s) Prefilled Syringe [Lantus] glimepiride Yes 4 mg, PO, M emoria 8-23 Daily, 0 l 23:47: Refill(s) [place] Docusate Yes 100 mg = 1 Mem [...] emoria 823 Daily, 0 l 23:47: Refill(s) [place] Docusate Yes 100 mg = 1 Mem oria Sodium 100 8-23 cap, PO, l MG Oral 23:47: BID, 0 [place] Capsule 00 Refill(s) [Colace] Linagliptin No 5 mg = 1 Me moria 5 MG Oral 8-23 tab, PO, l Tablet 23:47: Daily, 0 [place] [Tradjenta] 00 Refill(s) 3 ML Yes 50 units, Memoria Insulin 8-23 SUB-Q, l Glargine 23:47: Bedtime, 0 Her kowalski 100 UNT/ML 00 Refill(s) Prefilled Syringe [Lantus] glimepiride Yes 4 mg, PO, M emoria 8-23 Daily, 0 l 23:47: Refill(s) [place] Docusate Yes 100 mg = 1 Mem oria Sodium 100 8-23 cap, PO, l MG Oral 23:47: BID, 0 [place] Capsule 00 Refill(s) [Colace] Linagliptin No 5 mg = 1 Me moria 5 MG Oral 8-23 tab, PO, l Tablet 23:47: Daily, 0 [place] [Tradjenta] 00 Refill(s) 3 ML Yes 50 units, Memoria Insulin 8-23 SUB-Q, l Glargine 23:47: Bedtime, 0 Her kowalski 100 UNT/ML 00 Refill(s) Prefilled Syringe [Lantus] glimepiride Yes 4 mg, PO, M emoria 8-23 Daily, 0 l 23:47: Refill(s) [place] 00 Docusate Yes 100 mg = 1 Mem oria Sodium 100 8-23 cap, PO, l MG Oral 23:47: BID, 0 [place] Capsule 00 Refill(s) [Colace] Linagliptin No 5 [...] 0 l 23:47: Refill(s) Luke 00 Docusate 0 Yes 100 mg = 1 Mem oria Sodium 100 8-23 cap, PO, l MG Oral 23:47: BID, 0 [place] Capsule 00 Refill(s) [Colace] Linagliptin No 5 mg = 1 Me moria 5 MG Oral 8-23 tab, PO, l Tablet 23:47: Daily, 0 [place] [Tradjenta] 00 Refill(s) 3 ML 0 Yes 50 units, Memoria Insulin 8-23 SUB-Q, l Glargine 23:47: Bedtime, 0 Her kowalski 100 UNT/ML 00 Refill(s) Prefilled Syringe [Lantus] glimepiride Yes 4 mg, PO, M emoria 8-23 Daily, 0 l 23:47: Refill(s) [place] Docusate Yes 100 mg = 1 Mem oria Sodium 100 8-23 cap, PO, l MG Oral 23:47: BID, 0 Luke Capsule 00 Refill(s) [Colace] Linagliptin No 5 mg = 1 Me moria 5 MG Oral 8-23 tab, PO, l Tablet 23:47: Daily, 0 [place] [Tradjenta] 00 Refill(s) 3 ML Yes 50 units, Memoria Insulin 8-23 SUB-Q, l Glargine 23:47: Bedtime, 0 Her kowalski 100 UNT/ML 00 Refill(s) Prefilled Syringe [Lantus] glimepiride Yes 4 mg, PO, M emoria 8-23 Daily, 0 l 23:47: Refill(s) [place] Docusate Yes 100 mg = 1 Mem [...] PO, l MG Oral 23:47: BID, 0 [place] Capsule 00 Refill(s) [Colace] Linagliptin No 5 mg = 1 Me moria 5 MG Oral 8-23 tab, PO, l Tablet 23:47: Daily, 0 [place] [Tradjenta] 00 Refill(s) 3 ML Yes 50 [...] PO, l MG Oral 23:47: BID, 0 [place] Capsule 00 Refill(s) [Colace] Linagliptin No 5 mg = 1 Me moria 5 MG Oral 8-23 tab, PO, l Tablet 23:47: Daily, 0 [place] [Tradjenta] 00 Refill(s) 3 ML Yes 50 [...] glimepiride Yes 4 mg, PO, M emoria 8- Daily, 0 l 23:47: Refill(s) [place] 00 Clonidine No 0.1 mg = 1 Me moria Hydrochlori 8-23 tab, PO, l de 0.1 MG 23:40: PRN [place] Oral Tablet 00 Hypertensi on, 0 Refill(s) [...] PO, l de 0.1 MG 23:40: PRN [place] Oral Tablet 00 Hypertensi on, 0 Refill(s) Clonidine No 0.1 mg = 1 Me moria Hydrochlori 8-23 tab, PO, l de 0.1 MG 23:40: PRN [place] Oral Tablet 00 Hypertensi on, 0 Refill(s) Clonidine No 0.1 mg = 1 Me moria Hydrochlori 8-23 tab, PO, l de 0.1 MG 23:40: PRN [place] Oral Tablet 00 Hypertensi on, 0 Refill(s) Clonidine No 0.1 mg = 1 Me moria Hydrochlori 8-23 tab, PO, l de 0.1 MG 23:40: PRN [place] Oral Tablet 00 Hypertensi on, 0 Refill(s) Clonidine No 0.1 mg = 1 Me moria Hydrochlori 8-23 tab, PO, l de 0.1 MG 23:40: PRN [place] Oral Tablet 00 Hypertensi on, 0 Refill(s) Clonidine No 0.1 mg = 1 Me moria Hydrochlori 8-23 tab, PO, l de 0.1 MG 23:40: PRN [place] Oral Tablet 00 Hypertensi on, 0 Refill(s) Clonidine 0 No 0.1 mg = 1 Me moria Hydrochlori 8-23 tab, PO, l de 0.1 MG 23:40: PRN [place] Oral Tablet 00 Hypertensi on, 0 Refill(s) Clonidine No 0.1 mg = 1 Me moria Hydrochlori 8-23 tab, PO, l de 0.1 MG 23:40: PRN [place] Oral Tablet 00 Hypertensi on, 0 Refill(s) Clonidine No 0.1 mg = 1 Me moria Hydrochlori 8-23 tab, PO, l de 0.1 MG 23:40: PRN [place] Oral Tablet 00 Hypertensi on, 0 Refill(s) [...] PO, l de 0.1 MG 23:40: PRN [place] Oral Tablet 00 Hypertensi on, 0 Refill(s) Clonidine 0 No 0.1 mg = 1 Me moria [...] 8-23 (Same As: l chloride 23:00: Ancef, [place] 0.9% INJ 00 Kefzol) 100 mL MEDICATION WASTE Product Size: 1000 mg Product Wasted: ___ mg Ancef + No Notes: Memoria sodium 8-23 (Same As: l chloride 23:00: Ancef, [place] 0.9% INJ 00 Kefzol) 100 mL MEDICATION WASTE Product Size: 1000 mg Product Wasted: ___ mg Ancef + No Notes: Memoria sodium 8-23 (Same As: l chloride 23:00: Ancef, Luke 0.9% INJ 00 Kefzol) 100 mL MEDICATION WASTE Product Size: 1000 mg Product Wasted: ___ mg Ancef + No Notes: Memoria sodium 8-23 (Same As: l chloride 23:00: Ancef, [place] 0.9% INJ 00 Kefzol) 100 mL MEDICATION WASTE Product Size: 1000 mg Product Wasted: ___ mg Ancef + No Notes: Memoria sodium 8-23 (Same As: l chloride 23:00: Ancef, [place] 0.9% INJ 00 Kefzol) 100 mL MEDICATION [...] 8-23 (Same As: l chloride 23:00: Ancef, [place] 0.9% INJ Kefzol) 100 mL MEDICATION WASTE Product Size: 1000 mg Product Wasted: ___ mg Ancef + No Notes: Memoria sodium 8-23 (Same As: l chloride 23:00: Ancef, [place] 0.9% INJ 00 Kefzol) 100 mL MEDICATION WASTE Product Size: 1000 mg Product Wasted: ___ mg Ancef No Notes: Memoria sodium 8-23 (Same As: l chloride 23:00: Ancef, [place] 0.9% INJ Kefzol) 100 mL MEDICATION WASTE Product Size: 1000 mg Product Wasted: ___ mg Ancef No Notes: Memoria sodium 8-23 (Same As: l chloride 23:00: Ancef, [place] 0.9% INJ Kefzol) 100 mL MEDICATION WASTE Product Size: 1000 mg Product Wasted: ___ mg Ancef + No Notes: Memoria sodium 8-23 (Same As: l chloride 23:00: Ancef, [place] 0.9% INJ 00 Kefzol) 100 mL MEDICATION WASTE Product Size: 1000 mg Product Wasted: ___ mg Ancef + No Notes: Memoria sodium 8-23 (Same As: l chloride 23:00: Ancef, [place] 0.9% INJ 00 Kefzol) 100 mL MEDICATION [...] 8-23 (Same As: l chloride 23:00: Ancef, [place] 0.9% INJ 00 Kefzol) 100 mL MEDICATION WASTE Product Size: 1000 mg Product Wasted: ___ mg Ancef + No Notes: Memoria sodium 8-23 (Same As: l chloride 23:00: Ancef, [place] 0.9% INJ 00 Kefzol) 100 mL MEDICATION [...] (Same as: l MG Oral 22:00: Colace) [place] Capsule 00 (Do Not [Colace] Crush) Docusate No Notes: Memoria Sodium 100 8-23 (Same as: l MG Oral 22:00: Colace) Luke Capsule 00 (Do Not [Colace] Crush) Docusate No Notes: Memoria Sodium 100 8-23 (Same as: l MG Oral 22:00: Colace) [place] Capsule 00 (Do Not [Colace] Crush) Docusate No Notes: Memoria Sodium 100 8-23 (Same as: l MG Oral 22:00: Colace) [place] Capsule 00 (Do Not [Colace] Crush) Docusate No Notes: Memoria Sodium 100 8-23 (Same as: l MG Oral 22:00: Colace) [place] Capsule 00 (Do Not [Colace] Crush) usa No Notes: Memoria Sodium 100 8-23 (Same as: l MG Oral 22:00: Colace) [place] Capsule 00 (Do Not [Colace] Crush) usa No Notes: Memoria Sodium 100 8-23 (Same as: l MG Oral 22:00: Colace) [place] Capsule 00 (Do Not [Colace] Crush) usa No Notes: Memoria Sodium 100 8-23 (Same as: l MG Oral 22:00: Colace) [place] Capsule 00 (Do Not [Colace] Crush) No Notes: Memoria Sodium 100 8-23 (Same as: l MG Oral 22:00: Colace) [place] Capsule 00 (Do Not [Colace] Crush) te No Notes: Memoria Sodium 100 8-23 (Same as: l MG Oral 22:00: Colace) [place] Capsule 00 (Do Not [Colace] Crush) te No Notes: Memoria Sodium 100 8-23 (Same as: l MG Oral 22:00: Colace) [place] Capsule 00 (Do Not [Colace] Crush) No Notes: Memoria Sodium 100 8-23 (Same as: l MG Oral 22:00: Colace) [place] Capsule 00 (Do Not [Colace] Crush) usate No Notes: Memoria Sodium 100 8-23 (Same as: l MG Oral 22:00: Colace) [place] Capsule 00 (Do Not [Colace] Crush) usate No Notes: Memoria Sodium 100 8-23 (Same as: l MG Oral 22:00: Colace) [place] Capsule 00 (Do Not [Colace] Crush) te No Notes: Memoria Sodium 100 8-23 (Same as: l MG Oral 22:00: Colace) [place] Capsule 00 (Do Not [Colace] Crush) usate No Notes: Memoria Sodium 100 8-23 (Same as: l MG Oral 22:00: Colace) [place] Capsule 00 (Do Not [Colace] Crush) Docusate No Notes: Memoria Sodium 100 8-23 (Same as: l MG Oral 22:00: Colace) [place] Capsule 00 (Do Not [Colace] Crush) Docusate No Notes: Memoria Sodium 100 8-23 (Same as: l MG Oral 22:00: Colace) [place] Capsule 00 (Do Not [Colace] Crush) Ofirmev [id number] No 1,000 mg, Memor ia 02-07 Route: IV, l 19:25: ONCE, [place] Dosing Weight 89, kg, Start date: 02/08/16 [...] ia 02-07 Route: IV, l 19:25: ONCE, [place] 00 Dosing Weight 89, kg, Start date: [...] Ofirmev 2016-0 No 1,000 mg, Memor ia 8- Route: IV, l 19:25: ONCE, [place] 00 Dosing Weight 89, kg, Start date: 02/08/16 14:25:00 CDT, Stop date: 02/08/16 14:25:00 CDT Ofirmev 2016-0 No 1,000 mg, Memor ia 8- Route: IV, l 19:25: ONCE, Luke 00 Dosing Weight 89, kg, Start date: 02/08/16 14:25:00 CDT, Stop date: 02/08/16 14:25:00 CDT Ofirmev 2016-0 No 1,000 mg, Memor ia 8- Route: IV, l 19:25: ONCE, Dosing Weight 89, kg, Start date: 02/08/16 14:25:00 CDT, Stop date: 02/08/16 14:25:00 CDT Ofirmev 2016-0 No 1,000 mg, Memor ia 8- Route: IV, l 19:25: ONCE, Dosing Weight 89, kg, Start date: 02/08/16 14:25:00 CDT, Stop date: 02/08/16 14:25:00 CDT Ofirmev 2016-0 No 1,000 mg, Memor ia 8- Route: IV, l 19:25: ONCE, Dosing Weight 89, kg, Start date: 02/08/16 14:25:00 CDT, Stop date: 02/08/16 14:25:00 CDT Ofirmev 2016-0 No 1,000 mg, Memor ia 8- Route: IV, l 19:25: ONCE, Dosing Weight 89, kg, Start date: 02/08/16 14:25:00 CDT, Stop date: 02/08/16 14:25:00 CDT Ofirmev 2016-0 No 1,000 mg, Memor ia 8- Route: IV, l 19:25: ONCE, Dosing Weight [...] CDT, Stop date: 02/08/16 14:25:00 CDT Ondansetron 0 No Notes: Boy andrés 02-07 (Same as: l 18:22: Zofran) MEDICATION WASTE Product Size: 4 mg Product Wasted: ___ mg Flumazenil No Notes: Memor ia 02-07 (Same as: l 18:22: Romazicon) Luke Naloxone No Notes: Memoria 8- Same as l 18:22: Narcan [place] Morphine No Notes: Memoria 8- (Same l 18:22: as:MORPhin [place] 00 e Sulfate) Sodium No 1,000 mL, Memori a Chloride 02-07 Rate: 125 l 0.154 18:22: ml/hr, [place] MEQ/ML 00 Infuse Injectable over: 8 Solution hr, Route: IV, Dosing Weight 89.545 kg, Total Volume: 1,000, Start date: 02/08/16 13:22:00 CDT, Duration: 30 day, Stop date: 03/09/16 13:21:00 CDT Ondansetron No Notes: Boy andrés 8 (Same as: l 18:22: Zofran) [place] 00 MEDICATION WASTE Product Size: 4 mg Product Wasted: ___ mg Flumazenil No Notes: Memor ia 02-07 (Same as: l 18:22: Romazicon) [place] Naloxone No Notes: Memoria 8 Same as l 18:22: Narcan [place] Morphine No Notes: Memoria - (Same l 18:22: as:MORPhin [place] 00 e Sulfate) Sodium No 1,000 mL, Memori a Chloride 02-07 Rate: 125 l 0.154 18:22: ml/hr, Luke MEQ/ML 00 Infuse Injectable over: 8 Solution hr, Route: IV, Dosing Weight 89.545 kg, Total Volume: 1,000, Start date: 02/08/16 13:22:00 CDT, Duration: 30 day, Stop date: 03/09/16 13:21:00 CDT Ondansetron No Notes: Boy andrés 8-23 (Same as: l 18:22: Zofran) [place] 00 MEDICATION WASTE Product Size: 4 mg Product Wasted: ___ mg Flumazenil No Notes: Memor ia 8-23 (Same as: l 18:22: Romazicon) [place] Naloxone No Notes: Memoria 8-23 Same as l 18:22: Narcan [place] Morphine No Notes: Memoria 8-23 (Same l 18:22: as:MORPhin Luke 00 e Sulfate) Sodium No 1,000 mL, Memori a Chloride 02-07 Rate: 125 l 0.154 18:22: ml/hr, [place] MEQ/ML 00 Infuse Injectable over: 8 Solution hr, Route: IV, Dosing Weight 89.545 kg, Total Volume: 1,000, Start date: 02/08/16 13:22:00 CDT, Duration: 30 day, Stop date: 03/09/16 13:21:00 CDT Ondansetron No Notes: Boy andrés 8- (Same as: l 18:22: Zofran) [place] 00 MEDICATION WASTE Product Size: 4 mg Product Wasted: ___ mg Flumazenil No Notes: Memor ia 02-07 (Same as: l 18:22: Romazicon) [place] Naloxone No Notes: Memoria 8 Same as l 18:22: Narcan [place] Morphine No Notes: Memoria 8- (Same l 18:22: as:MORPhin Luke 00 e Sulfate) Sodium No 1,000 mL, Memori a Chloride 02-07 Rate: 125 l 0.154 18:22: ml/hr, Luke MEQ/ML 00 Infuse Injectable over: 8 Solution hr, Route: IV, Dosing Weight 89.545 kg, Total Volume: 1,000, Start date: 02/08/16 13:22:00 CDT, Duration: 30 day, Stop date: 03/09/16 13:21:00 CDT Ondansetron No Notes: Boy andrés 8-23 (Same as: l 18:22: Zofran) [place] 00 MEDICATION WASTE Product Size: 4 mg Product Wasted: ___ mg Flumazenil No Notes: Memor ia 8- (Same as: l 18:22: Romazicon) [place] Naloxone No Notes: Memoria 8- Same as l 18:22: Narcan Luke 00 Morphine No Notes: Memoria 8-23 (Same l 18:22: as:MORPhin [place] 00 e Sulfate) Sodium 2016 No 1,000 mL, Memori a Chloride 8- Rate: 125 l 0.154 18:22: ml/hr, [place] MEQ/ML 00 Infuse Injectable over: 8 Solution hr, Route: IV, Dosing Weight 89.545 kg, Total Volume: 1,000, Start date: 02/08/16 13:22:00 CDT, Duration: 30 day, Stop date: 03/09/16 13:21:00 CDT Ondansetron No Notes: Boy andrés 8-23 (Same as: l 18:22: Zofran) [place] 00 MEDICATION WASTE Product Size: 4 mg Product Wasted: ___ mg Flumazenil No Notes: Memor ia 02-07 (Same as: l 18:22: Romazicon) [place] Naloxone No Notes: Memoria 8 Same as l 18:22: Narcan [place] Morphine No Notes: Memoria 8-23 (Same l 18:22: as:MORPhin Luke 00 e Sulfate) Sodium No 1,000 mL, Memori a Chloride 02-07 Rate: 125 l 0.154 18:22: ml/hr, Luke MEQ/ML 00 Infuse Injectable over: 8 Solution hr, Route: IV, Dosing Weight 89.545 kg, Total Volume: 1,000, Start date: 02/08/16 13:22:00 CDT, Duration: 30 day, Stop date: 03/09/16 13:21:00 CDT Ondansetron No Notes: Boy andrés 8-23 (Same as: l 18:22: Zofran) [place] 00 MEDICATION WASTE Product Size: 4 mg Product Wasted: ___ mg Flumazenil No Notes: Memor ia 8-23 (Same as: l 18:22: Romazicon) [place] 00 Naloxone No Notes: Memoria 8-23 Same as l 18:22: Narcan [place] 00 Morphine No Notes: Memoria 8-23 (Same l 18:22: as:MORPhin [place] 00 e Sulfate) Sodium No 1,000 mL, Memori a Chloride 02-07 Rate: 125 l 0.154 18:22: ml/hr, Luke MEQ/ML 00 Infuse Injectable over: 8 Solution hr, Route: IV, Dosing Weight 89.545 kg, Total Volume: 1,000, Start date: 02/08/16 13:22:00 CDT, Duration: 30 day, Stop date: 03/09/16 13:21:00 CDT Ondansetron No Notes: Boy andrés 8-23 (Same as: l 18:22: Zofran) [place] 00 MEDICATION WASTE Product Size: 4 mg Product Wasted: ___ mg Flumazenil No Notes: Memor ia 8- (Same as: l 18:22: Romazicon) [place] 00 Naloxone No Notes: Memoria 8 Same as l 18:22: Narcan Morphine No Notes: Memoria 8- (Same l 18:22: as:MORPhin Luke 00 e Sulfate) Sodium No 1,000 mL, Memori a Chloride 02-07 Rate: 125 l 0.154 18:22: ml/hr, [place] MEQ/ML 00 Infuse Injectable over: 8 Solution hr, Route: IV, Dosing Weight 89.545 kg, Total Volume: 1,000, Start date: 02/08/16 13:22:00 CDT, Duration: 30 day, Stop date: 03/09/16 13:21:00 CDT Ondansetron No Notes: Boy andrés 8-23 (Same as: l 18:22: Zofran) [place] 00 MEDICATION WASTE Product Size: 4 mg Product Wasted: ___ mg Flumazenil No Notes: Memor ia 8-23 (Same as: l 18:22: Romazicon) [place] 00 Naloxone No Notes: Memoria 8-23 Same as l 18:22: Narcan Morphine No Notes: Memoria 8-23 (Same l 18:22: as:MORPhin Luke 00 e Sulfate) Sodium No 1,000 mL, Memori a Chloride 8-23 Rate: 125 l 0.154 18:22: ml/hr, Luke MEQ/ML 00 Infuse Injectable over: 8 Solution hr, Route: IV, Dosing Weight 89.545 kg, Total Volume: 1,000, Start date: 02/08/16 13:22:00 CDT, Duration: 30 day, Stop date: 03/09/16 13:21:00 CDT Ondansetron No Notes: Boy andrés 8-23 (Same as: l 18:22: Zofran) Luke 00 MEDICATION WASTE Product Size: 4 mg Product Wasted: ___ mg Flumazenil No Notes: Memor ia 8-23 (Same as: l 18:22: Romazicon) [place] Naloxone No Notes: Memoria 8-23 Same as l 18:22: Narcan [place] Morphine No Notes: Memoria 8- (Same l 18:22: as:MORPhin [place] 00 e Sulfate) Sodium No 1,000 mL, Memori a Chloride 8 Rate: 125 l 0.154 18:22: ml/hr, [place] MEQ/ML 00 Infuse Injectable over: 8 Solution hr, Route: IV, Dosing Weight 89.545 kg, Total Volume: 1,000, Start date: 02/08/16 13:22:00 CDT, Duration: 30 day, Stop date: 03/09/16 13:21:00 CDT Ondansetron No Notes: Boy andrés 8-23 (Same as: l 18:22: Zofran) [place] 00 MEDICATION WASTE Product Size: 4 mg Product Wasted: ___ mg Flumazenil No Notes: Memor ia 8-23 (Same as: l 18:22: Romazicon) [place] Naloxone No Notes: Memoria 8-23 Same as l 18:22: Narcan [place] Morphine No Notes: Memoria 8-23 (Same l 18:22: as:MORPhin Luke 00 e Sulfate) Sodium No 1,000 mL, Memori a Chloride 8-23 Rate: 125 l 0.154 18:22: ml/hr, [place] MEQ/ML 00 Infuse Injectable over: 8 Solution hr, Route: IV, Dosing Weight 89.545 kg, Total Volume: 1,000, Start date: 02/08/16 13:22:00 CDT, Duration: 30 day, Stop date: 03/09/16 13:21:00 CDT Ondansetron No Notes: Boy andrés 02-07 (Same as: l 18:22: Zofran) [place] 00 MEDICATION WASTE Product Size: 4 mg Product Wasted: ___ mg Flumazenil No Notes: Memor ia 02-07 (Same as: l 18:22: Romazicon) [place] 00 Naloxone No Notes: Memoria 02-07 Same as l 18:22: Narcan [place] 00 Morphine No Notes: Memoria 02-07 (Same l 18:22: as:MORPhin [place] 00 e Sulfate) Sodium No 1,000 mL, Memori a Chloride 02-07 Rate: 125 l 0.154 18:22: ml/hr, [place] MEQ/ML 00 Infuse Injectable over: 8 Solution hr, Route: IV, Dosing Weight 89.545 kg, Total Volume: 1,000, Start date: 02/08/16 13:22:00 CDT, Duration: 30 day, Stop date: 03/09/16 13:21:00 CDT Ondansetron No Notes: Boy andrés 02-07 (Same as: l 18:22: Zofran) Luke 00 MEDICATION WASTE Product Size: 4 mg Product Wasted: ___ mg Flumazenil No Notes: Memor ia 02-07 (Same as: l 18:22: Romazicon) Luke 00 Naloxone No Notes: Memoria 02-07 Same as l 18:22: Narcan [place] Morphine No Notes: Memoria 02-07 (Same l 18:22: as:MORPhin Luke 00 e Sulfate) Sodium No 1,000 mL, Memori a Chloride 02-07 Rate: 125 l 0.154 18:22: ml/hr, [place] MEQ/ML 00 Infuse Injectable over: 8 Solution hr, Route: IV, Dosing Weight 89.545 kg, Total Volume: 1,000, Start date: 02/08/16 13:22:00 CDT, Duration: 30 day, Stop date: 03/09/16 13:21:00 CDT Ondansetron No Notes: Boy andrés 8-23 (Same as: l 18:22: Zofran) Luke 00 MEDICATION WASTE Product Size: 4 mg Product Wasted: ___ mg Flumazenil No Notes: Memor ia 8-23 (Same as: l 18:22: Romazicon) Luke Naloxone No Notes: Memoria 8 Same as l 18:22: Narcan Luke 00 Morphine No Notes: Memoria - (Same l 18:22: as:MORPhin [place] 00 e Sulfate) Sodium No 1,000 mL, Memori a Chloride 02-07 Rate: 125 l 0.154 18:22: ml/hr, Luke MEQ/ML 00 Infuse Injectable over: 8 Solution hr, Route: IV, Dosing Weight 89.545 kg, Total Volume: 1,000, Start date: 02/08/16 13:22:00 CDT, Duration: 30 day, Stop date: 03/09/16 13:21:00 CDT Ondansetron No Notes: Boy andrés 23 (Same as: l 18:22: Zofran) Luke 00 MEDICATION WASTE Product Size: 4 mg Product Wasted: ___ mg Flumazenil No Notes: Memor ia - (Same as: l 18:22: Romazicon) [place] Naloxone No Notes: Memoria 8 Same as l 18:22: Narcan Luke Morphine No Notes: Memoria 8-23 (Same l 18:22: as:MORPhin [place] 00 e Sulfate) Sodium No 1,000 mL, Memori a Chloride 02-07 Rate: 125 l 0.154 18:22: ml/hr, [place] MEQ/ML 00 Infuse Injectable over: 8 Solution hr, Route: IV, Dosing Weight 89.545 kg, Total Volume: 1,000, Start date: 02/08/16 13:22:00 CDT, Duration: 30 day, Stop date: 03/09/16 13:21:00 CDT Ondansetron No Notes: Boy andrés 8-23 (Same as: l 18:22: Zofran) [place] 00 MEDICATION WASTE Product Size: 4 mg Product Wasted: ___ mg Flumazenil No Notes: Memor ia 8- (Same as: l 18:22: Romazicon) Luke 00 Naloxone No Notes: Memoria 8-23 Same as l 18:22: Narcan Luke 00 Morphine No Notes: Memoria 8-23 (Same l 18:22: as:MORPhin [place] 00 e Sulfate) Sodium No 1,000 mL, Memori a Chloride 02-07 Rate: 125 l 0.154 18:22: ml/hr, Luke MEQ/ML 00 Infuse Injectable over: 8 Solution hr, Route: IV, Dosing Weight 89.545 kg, Total Volume: 1,000, Start date: 02/08/16 13:22:00 CDT, Duration: 30 day, Stop date: 03/09/16 13:21:00 CDT Ondansetron No Notes: Boy andrés 23 (Same as: l 18:22: Zofran) [place] 00 MEDICATION WASTE Product Size: 4 mg Product Wasted: ___ mg Flumazenil No Notes: Memor ia 02-07 (Same as: l 18:22: Romazicon) [place] 00 Naloxone No Notes: Memoria 8 Same as l 18:22: Narcan [place] Morphine No Notes: Memoria 8-23 (Same l 18:22: as:MORPhin Luke 00 e Sulfate) Sodium No 1,000 mL, Memori a Chloride 02-07 Rate: 125 l 0.154 18:22: ml/hr, [place] MEQ/ML 00 Infuse Injectable over: 8 Solution hr, Route: IV, Dosing Weight 89.545 kg, Total Volume: 1,000, Start date: 02/08/16 13:22:00 CDT, Duration: 30 day, Stop date: 03/09/16 13:21:00 CDT Ondansetron No Notes: Boy andrés 8-23 (Same as: l 18:22: Zofran) [place] 00 MEDICATION WASTE Product Size: 4 mg Product Wasted: ___ mg Flumazenil No Notes: Memor ia 8-23 (Same as: l 18:22: Romazicon) [place] 00 Naloxone No Notes: Memoria 8-23 Same as l 18:22: Narcan [place] 00 Morphine No Notes: Memoria 8-23 (Same l 18:22: as:MORPhin [place] 00 e Sulfate) Sodium No 1,000 mL, Memori a Chloride 02-07 Rate: 125 l 0.154 18:22: ml/hr, [place] MEQ/ML 00 Infuse Injectable over: 8 Solution hr, Route: IV, Dosing Weight 89.545 kg, Total Volume: 1,000, Start date: 02/08/16 13:22:00 CDT, Duration: 30 day, Stop date: 03/09/16 13:21:00 CDT Ondansetron No Notes: Boy andrés 8-23 (Same as: l 18:22: Zofran) [place] 00 MEDICATION WASTE Product Size: 4 mg Product Wasted: ___ mg Flumazenil No Notes: Memor ia 8-23 (Same as: l 18:22: Romazicon) [place] 00 Naloxone No Notes: Memoria 8-23 Same as l 18:22: Narcan [place] 00 Morphine No Notes: Memoria 8-23 (Same l 18:22: as:MORPhin [place] 00 e Sulfate) Sodium No 1,000 mL, Memori a Chloride 02-07 Rate: 125 l 0.154 18:22: ml/hr, [place] MEQ/ML 00 Infuse Injectable over: 8 Solution hr, Route: IV, Dosing Weight 89.545 kg, Total Volume: 1,000, Start date: 02/08/16 13:22:00 CDT, Duration: 30 day, Stop date: 03/09/16 13:21:00 CDT Morphine No Notes: Memoria 8-23 Dose: l 18:00: Delay: [place] 00 Basal rate: 4hr limit: (Same as:[place]-Je ct) Morphine 2015- No Notes: Memoria 8-23 Dose: l 18:00: Delay: [place] 00 Basal rate: 4hr limit: (Same as:[place] ct) Morphine 2015-0 No Notes: Memoria 8-23 Dose: l 18:00: Delay: [place] 00 Basal rate: 4hr limit: (Same as:[place]) Morphine 2015- No Notes: Memoria 8-23 Dose: l 18:00: Delay: [place] 00 Basal rate: 4hr limit: (Same as:[place]) Morphine 2015- No Notes: Memoria 8-23 Dose: l 18:00: Delay: [place] 00 Basal rate: 4hr limit: (Same as:[place]) Morphine 2015- No Notes: Memoria 8-23 Dose: l 18:00: Delay: [place] 00 Basal rate: 4hr limit: (Same as:[place]) Morphine 2015- No Notes: Memoria 8-23 Dose: l 18:00: Delay: [place] 00 Basal rate: 4hr limit: (Same as:[place]) Morphine 2015- No Notes: Memoria 8-23 Dose: l 18:00: Delay: [place] 00 Basal rate: 4hr limit: (Same as:[place]) Morphine 2015- No Notes: Memoria 8-23 Dose: l 18:00: Delay: [place] 00 Basal rate: 4hr limit: (Same as:[place]) Morphine 2015- No Notes: Memoria 8-23 Dose: l 18:00: Delay: [place] 00 Basal rate: 4hr limit: (Same as:[place]) Morphine 2015- No Notes: Memoria 8-23 Dose: l 18:00: Delay: [place] 00 Basal rate: 4hr limit: (Same as:[place]) Morphine 2015- No Notes: Memoria 8-23 Dose: l 18:00: Delay: [place] 00 Basal rate: 4hr limit: (Same as:[place]) Morphine 2015- No Notes: Memoria 8-23 Dose: l 18:00: Delay: [place] 00 Basal rate: 4hr limit: (Same as:[place]) Morphine No Notes: Memoria 8-23 Dose: l 18:00: Delay: [place] 00 Basal rate: 4hr limit: (Same as:[place]) Morphine No Notes: Memoria 8-23 Dose: l 18:00: Delay: [place] 00 Basal rate: 4hr limit: (Same as:[place]) Morphine No Notes: Memoria 8- Dose: l 18:00: Delay: [place] 00 Basal rate: 4hr limit: (Same as:[place]) Morphine No Notes: Memoria 8- Dose: l 18:00: Delay: [place] 00 Basal rate: 4hr limit: (Same as:[place]) Morphine No Notes: Memoria 8- Dose: l 18:00: Delay: [place] 00 Basal rate: 4hr limit: (Same as:[place]) Morphine No Notes: Memoria 8- Dose: l 18:00: Delay: [place] 00 Basal rate: 4hr limit: (Same as:[place]) Naloxone No Notes: Memoria - Same as l 17:53: Narcan [place] 00 Acetaminoph No Notes: Do M emoria en 325 MG / 02-07 not exceed l Hydrocodone 17:53: 4gm/day of Luke Bitartrate 00 acetaminop 10 MG Oral hen. (Same Tablet as: Clarence [Clarence 325/10) 10/325] Zofran No Notes: Memoria - (Same as: l 17:53: Zofran) [place] 00 MEDICATION WASTE Product Size: 4 mg Product Wasted: ___ mg Naloxone No Notes: Memoria 8- Same as l 17:53: Narcan [place] 00 Acetaminoph No Notes: Do M emoria en 325 MG / 02-07 not exceed l Hydrocodone 17:53: 4gm/day of [place] Bitartrate 00 acetaminop 10 MG Oral hen. (Same Tablet as: Clarence [Clarence 325/10) 10/325] Zofran No Notes: Memoria 8-23 (Same as: l 17:53: Zofran) [place] 00 MEDICATION WASTE Product Size: 4 mg Product Wasted: ___ mg Naloxone No Notes: Memoria 8-23 Same as l 17:53: Narcan [place] Acetaminoph No Notes: Do M emoria en 325 MG / 8- not exceed l Hydrocodone 17:53: 4gm/day of [place] Bitartrate 00 acetaminop 10 MG Oral hen. (Same Tablet as: Clarence [Clarence 325/10) ] Zofran No Notes: Memoria 8-23 (Same as: l 17:53: Zofran) [place] 00 MEDICATION WASTE Product Size: 4 mg Product Wasted: ___ mg Naloxone No Notes: Memoria 8- Same as l 17:53: Narcan [place] Acetaminoph No Notes: Do M emoria en 325 MG / 02-07 not exceed l Hydrocodone 17:53: 4gm/day of [place] Bitartrate 00 acetaminop 10 MG Oral hen. (Same Tablet as: Clarence [Clarence 325/10) ] Zofran No Notes: Memoria 8-23 (Same as: l 17:53: Zofran) [place] 00 MEDICATION WASTE Product Size: 4 mg Product Wasted: ___ mg Naloxone No Notes: Memoria 8-23 Same as l 17:53: Narcan [place] Acetaminoph No Notes: Do M emoria en 325 MG / 8 not exceed l Hydrocodone 17:53: 4gm/day of [place] Bitartrate 00 acetaminop 10 MG Oral hen. (Same Tablet as: Clarence [Clarence 325/10) 325] Zofran No Notes: Memoria 8-23 (Same as: l 17:53: Zofran) [place] 00 MEDICATION WASTE Product Size: 4 mg Product Wasted: ___ mg Naloxone No Notes: Memoria 8-23 Same as l 17:53: Narcan [place] 00 Acetaminoph No Notes: Do M emoria en 325 MG / 8 not exceed l Hydrocodone 17:53: 4gm/day of [place] Bitartrate 00 acetaminop 10 MG Oral hen. (Same Tablet as: Clarence [Clarence 325/10) 10325] Zofran No Notes: Memoria 8-23 (Same as: l 17:53: Zofran) [place] 00 MEDICATION WASTE Product Size: 4 mg Product Wasted: ___ mg Naloxone No Notes: Memoria 8- Same as l 17:53: Narcan [place] Acetaminoph No Notes: Do M emoria en 325 MG / 02-07 not exceed l Hydrocodone 17:53: 4gm/day of [place] Bitartrate 00 acetaminop 10 MG Oral hen. (Same Tablet as: Clarence [Clarence 325/10) ] Zofran No Notes: Memoria 8 [...] 10 MG Oral hen. (Same Tablet as: Clarence [Clarence 325/10) ] Zofran No Notes: Memoria 8 (Same as: l 17:53: Zofran) [place] 00 MEDICATION WASTE Product Size: 4 mg Product Wasted: ___ mg Naloxone No Notes: Memoria 8- Same as l 17:53: Narcan [place] Acetaminoph No Notes: Do M emoria en 325 MG / 02-07 not exceed l Hydrocodone 17:53: 4gm/day of [place] Bitartrate 00 acetaminop 10 MG Oral hen. (Same Tablet as: Clarence [Clarence 325/10) 10325] Zofran No Notes: Memoria 8-23 (Same as: l 17:53: Zofran) [place] 00 MEDICATION WASTE Product Size: 4 mg Product Wasted: ___ mg Naloxone No Notes: Memoria 8-23 Same as l 17:53: Narcan [place] Acetaminoph No Notes: Do M emoria en 325 MG / 8-23 not exceed l Hydrocodone 17:53: 4gm/day of [place] Bitartrate 00 acetaminop 10 MG Oral hen. (Same Tablet as: Clarence [Clarence 325/10) ] Zofran No Notes: Memoria 8-23 (Same as: l 17:53: Zofran) [place] 00 MEDICATION WASTE Product Size: 4 mg Product Wasted: ___ mg Naloxone No Notes: Memoria 8-23 Same as l 17:53: Narcan [place] Acetaminoph No Notes: Do M emoria en 325 MG / 8 not exceed l Hydrocodone 17:53: 4gm/day of [place] Bitartrate 00 acetaminop 10 MG Oral hen. (Same Tablet as: Clarence [Clarence 325/10) ] Zofran No Notes: Memoria 8-23 (Same as: l 17:53: Zofran) [place] 00 MEDICATION WASTE Product Size: 4 mg Product Wasted: ___ mg Naloxone No Notes: Memoria 8-23 Same as l 17:53: Narcan [place] Acetaminoph No Notes: Do M emoria en 325 MG / 823 not exceed l Hydrocodone 17:53: 4gm/day of [place] Bitartrate 00 acetaminop 10 MG Oral hen. (Same Tablet as: Clarence [Clarence 325/10) ] Zofran No Notes: Memoria 8-23 (Same as: l 17:53: Zofran) [place] 00 MEDICATION WASTE Product Size: 4 mg Product Wasted: ___ mg Naloxone No Notes: Memoria 8-23 Same as l 17:53: Narcan [place] 00 Acetaminoph No Notes: Do M emoria en 325 MG / 8 not exceed l Hydrocodone 17:53: 4gm/day of [place] Bitartrate 00 acetaminop 10 MG Oral hen. (Same Tablet as: Clarence [Clarence 325/10) ] Zofran No Notes: Memoria 8-23 (Same as: l 17:53: Zofran) [place] 00 MEDICATION WASTE Product Size: 4 mg Product Wasted: ___ mg Naloxone No Notes: Memoria 8- Same as l 17:53: Narcan [place] Acetaminoph No Notes: Do M emoria en 325 MG / 02-07 not exceed l Hydrocodone 17:53: 4gm/day of [place] Bitartrate 00 acetaminop 10 MG Oral hen. (Same Tablet as: Clarence [Clarence 325/10) ] Zofran No Notes: Memoria 8 (Same as: l 17:53: Zofran) [place] 00 MEDICATION WASTE Product Size: 4 mg Product Wasted: ___ mg Naloxone No Notes: Memoria 8- Same as l 17:53: Narcan [place] Acetaminoph No Notes: Do M emoria en 325 MG / 02-07 not exceed l Hydrocodone 17:53: 4gm/day of [place] Bitartrate 00 acetaminop 10 MG Oral hen. (Same Tablet as: Clarence [Clarence 325/10) ] Zofran No Notes: Memoria 8- (Same as: l 17:53: Zofran) [place] 00 MEDICATION WASTE Product Size: 4 mg Product Wasted: ___ mg Naloxone No Notes: Memoria 8- Same as l 17:53: Narcan [place] Acetaminoph No Notes: Do M emoria en 325 MG / 02-07 not exceed l Hydrocodone 17:53: 4gm/day of [place] Bitartrate 00 acetaminop 10 MG Oral hen. (Same Tablet as: Clarence [Clarence 325/10) ] Zofran No Notes: Memoria 8-23 (Same as: l 17:53: Zofran) [place] 00 MEDICATION WASTE Product Size: 4 mg Product Wasted: ___ mg Naloxone No Notes: Memoria 8- Same as l 17:53: Narcan [place] Acetaminoph No Notes: Do M emoria en 325 MG / 8 not exceed l Hydrocodone 17:53: 4gm/day of [place] Bitartrate 00 acetaminop 10 MG Oral hen. (Same Tablet as: Clarence [Clarence 325/10) ] Zofran No Notes: Memoria 8- (Same as: l 17:53: Zofran) [place] 00 MEDICATION WASTE Product Size: 4 mg Product Wasted: ___ mg Naloxone No Notes: Memoria 8- Same as l 17:53: Narcan [place] Acetaminoph No Notes: Do M emoria en 325 MG / 02-07 not exceed l Hydrocodone 17:53: 4gm/day of [place] Bitartrate 00 acetaminop 10 MG Oral hen. (Same Tablet as: Clarence [Clarence 325/10) ] Zofran No Notes: Memoria 8- (Same as: l 17:53: Zofran) [place] 00 MEDICATION WASTE Product Size: 4 mg Product Wasted: ___ mg Naloxone No Notes: Memoria 8- Same as l 17:53: Narcan [place] Acetaminoph No Notes: Do M emoria en 325 MG / 02-07 not exceed l Hydrocodone 17:53: 4gm/day of [place] Bitartrate 00 acetaminop 10 MG Oral hen. (Same Tablet as: Clarence [Clarence 325/10) ] Zofran No Notes: Memoria 8-23 (Same as: l 17:53: Zofran) [place] 00 MEDICATION WASTE Product Size: 4 mg Product Wasted: ___ mg Robaxin No Notes: Memoria 8-23 (Same l 17:52: as:Robaxin ) Lactated No 1,000 mL, Boy andrés Ringers 8- Rate: 75 l 1,000 mL 17:52: ml/hr, Infuse over: 13.3 hr, Route: IV, Dosing Weight 89.545 kg, Total Volume: 1,000, Start date: 02/08/16 12:52:00 CDT, Duration: 30 day, Stop date: 03/09/16 12:51:00 CDT Flexeril No Notes: Memoria 8- (Same As: l 17:52: Flexeril) Diphenhydra No Notes: Boy andrés mine 02-07 (Same as: l 17:52: Benadryl) phenol No Notes: Memoria 02-07 Chlorasept l 17:52: [place] (Same as: Chlorasept ic, Sore Throat [place]) WASTE: F/P - Black; E - Municipal Trash Bin Robaxin No Notes: Memoria - (Same l 17:52: as:Robaxin ) Lactated No 1,000 mL, Boy andrés Ringers 02-07 Rate: 75 l 1,000 mL 17:52: ml/hr, Infuse over: 13.3 hr, Route: IV, Dosing Weight 89.545 kg, Total Volume: 1,000, Start date: 02/08/16 12:52:00 CDT, Duration: 30 day, Stop date: 03/09/16 12:51:00 CDT Flexeril No Notes: Memoria - (Same As: l 17:52: Flexeril) Diphenhydra No Notes: Boy andrés mine - (Same as: l 17:52: Benadryl) phenol No Notes: Memoria 02-07 Chlorasept l 17:52: ic [place] (Same as: Chlorasept ic, Sore Throat [place]) WASTE: F/P - Black; E - Municipal Trash Bin Robaxin No Notes: Memoria 8- (Same l 17:52: as:Robaxin [place] 00 ) Lactated No 1,000 mL, Boy andrés Ringers 8 Rate: 75 l 1,000 mL 17:52: ml/hr, Infuse over: 13.3 hr, Route: IV, Dosing Weight 89.545 kg, Total Volume: 1,000, Start date: 02/08/16 12:52:00 CDT, Duration: 30 day, Stop date: 03/09/16 12:51:00 CDT Flexeril No Notes: Memoria 8- (Same As: l 17:52: Flexeril) Diphenhydra No Notes: Boy andrés mine 02-07 (Same as: l 17:52: Benadryl) phenol No Notes: Memoria 02-07 Chlorasept l 17:52: ic [place] (Same as: Chlorasept ic, Sore Throat [place]) WASTE: F/P - Black; E - Municipal [...] l 17:52: Flexeril) Diphenhydra No Notes: Boy andrés mine 02-07 (Same as: l 17:52: Benadryl) phenol No Notes: Memoria 02-07 Chlorasept l 17:52: ic [place] (Same as: Chlorasept ic, Sore Throat [place]) WASTE: F/P - Black; E - Municipal Trash Bin Robaxin No Notes: Memoria 8 (Same l 17:52: as:Robaxin ) Lactated No 1,000 mL, Boy andrés Ringers 8- Rate: 75 l 1,000 mL 17:52: ml/hr, Infuse over: 13.3 hr, Route: IV, Dosing Weight 89.545 kg, Total Volume: 1,000, Start date: 02/08/16 12:52:00 CDT, Duration: 30 day, Stop date: 03/09/16 12:51:00 CDT Flexeril No Notes: Memoria 8- (Same As: l 17:52: Flexeril) [place] 00 Diphenhydra No Notes: Boy andrés mine 8- (Same as: l 17:52: Benadryl) phenol No Notes: Memoria 02-07 Chlorasept l 17:52: [place] (Same as: Chlorasept ic, Sore Throat [place]) WASTE: F/P - Black; E - Municipal Trash Bin Robaxin No Notes: Memoria 02-07 (Same l 17:52: as:Robaxin ) Lactated No 1,000 mL, Boy andrés Ringers 8 Rate: 75 l 1,000 mL 17:52: ml/hr, Infuse over: 13.3 hr, Route: IV, Dosing Weight 89.545 kg, Total Volume: 1,000, Start date: 02/08/16 12:52:00 CDT, Duration: 30 day, Stop date: 03/09/16 12:51:00 CDT Flexeril No Notes: Memoria 8- (Same As: l 17:52: Flexeril) [place] 00 Diphenhydra No Notes: Boy andrés mine 8-23 (Same as: l 17:52: Benadryl) phenol No Notes: Memoria 02-07 Chlorasept l 17:52: ic [place] (Same as: Chlorasept ic, Sore Throat [place]) WASTE: F/P - Black; E - Municipal Trash Bin Robaxin No Notes: Memoria 8-23 (Same l 17:52: as:Robaxin ) Lactated 2016-0 No 1,000 mL, Boy andrés Ringers 8- Rate: 75 l 1,000 mL 17:52: ml/hr, [place] 00 Infuse over: 13.3 hr, Route: IV, Dosing Weight 89.545 kg, Total Volume: 1,000, Start date: 02/08/16 12:52:00 CDT, Duration: 30 day, Stop date: 03/09/16 12:51:00 CDT Flexeril No Notes: Memoria 8-23 (Same As: l 17:52: Flexeril) [place] 00 Diphenhydra No Notes: Boy andrés mine 8- (Same as: l 17:52: Benadryl) [place] 00 phenol No Notes: Memoria 02-07 Chlorasept l 17:52: ic [place] (Same as: Chlorasept ic, Sore Throat [place]) WASTE: F/P - Black; E - Municipal Trash Bin Robaxin No Notes: Memoria 8- (Same l 17:52: as:Robaxin ) Lactated No 1,000 mL, Boy andrés Ringers 8 Rate: 75 l 1,000 mL 17:52: ml/hr, [place] 00 Infuse over: 13.3 hr, Route: IV, Dosing Weight 89.545 kg, Total Volume: 1,000, Start date: 02/08/16 12:52:00 CDT, Duration: 30 day, Stop date: 03/09/16 12:51:00 CDT Flexeril No Notes: Memoria 8- (Same As: l 17:52: Flexeril) [place] 00 Diphenhydra No Notes: Boy andrés mine 8-23 (Same as: l 17:52: Benadryl) [place] 00 phenol No Notes: Memoria 02-07 Chlorasept l 17:52: ic [place] (Same as: Chlorasept ic, Sore Throat [place]) WASTE: F/P - Black; E - Municipal Trash Bin Robaxin No Notes: Memoria 8- (Same l 17:52: as:Robaxin [place] 00 ) Lactated No 1,000 mL, Boy andrés Ringers 8-23 Rate: 75 l 1,000 mL 17:52: ml/hr, Infuse over: 13.3 hr, Route: IV, Dosing Weight 89.545 kg, Total Volume: 1,000, Start date: 02/08/16 12:52:00 CDT, Duration: 30 day, Stop date: 03/09/16 12:51:00 CDT Flexeril No Notes: Memoria 8- (Same As: l 17:52: Flexeril) [place] 00 Diphenhydra No Notes: Boy andrés mine 02-07 (Same as: l 17:52: Benadryl) [place] 00 phenol No Notes: Memoria 02-07 Chlorasept l 17:52: ic [place] (Same as: Chlorasept ic, Sore Throat [place]) WASTE: F/P - Black; E - Municipal [...] Flexeril) [place] 00 Diphenhydra No Notes: Boy andrés mine 02-07 (Same as: l 17:52: Benadryl) phenol No Notes: Memoria 02-07 Chlorasept l 17:52: ic [place] (Same as: Chlorasept ic, Sore Throat [place]) WASTE: F/P - Black; E - Municipal Trash Bin Robaxin No Notes: Memoria 02-07 (Same l 17:52: as:Robaxin [place] 00 ) Lactated No 1,000 mL, Boy andrés Ringers 8- Rate: 75 l 1,000 mL 17:52: ml/hr, Infuse over: 13.3 hr, Route: IV, Dosing Weight 89.545 kg, Total Volume: 1,000, Start date: 02/08/16 12:52:00 CDT, Duration: 30 day, Stop date: 03/09/16 12:51:00 CDT Flexeril No Notes: Memoria 02-07 (Same As: l 17:52: Flexeril) Diphenhydra No Notes: Boy andrés mine 02-07 (Same as: l 17:52: Benadryl) phenol No Notes: Memoria 02-07 Chlorasept l 17:52: ic [place] (Same as: Chlorasept ic, Sore Throat [place]) WASTE: F/P - Black; E - Municipal [...] l 17:52: Flexeril) Diphenhydra No Notes: Boy andrés mine 02-07 (Same as: l 17:52: Benadryl) phenol No Notes: Memoria 02-07 Chlorasept l 17:52: ic [place] (Same as: Chlorasept ic, Sore Throat [place]) WASTE: F/P - Black; E - Municipal Trash Bin Robaxin No Notes: Memoria 02-07 (Same l 17:52: as:Robaxin ) Lactated No 1,000 mL, Boy andrés Ringers 8 Rate: 75 l 1,000 mL 17:52: ml/hr, Infuse over: 13.3 hr, Route: IV, Dosing Weight 89.545 kg, Total Volume: 1,000, Start date: 02/08/16 12:52:00 CDT, Duration: 30 day, Stop date: 03/09/16 12:51:00 CDT Flexeril No Notes: Memoria 8- (Same As: l 17:52: Flexeril) Diphen[place]dra No Notes: Boy andrés mine 8- (Same as: l 17:52: Benadryl) phenol No Notes: Memoria 02-07 Chlorasept l 17:52: ic [place] (Same as: Chlorasept ic, Sore Throat [place]) WASTE: F/P - Black; E - Municipal Trash Bin Robaxin No Notes: Memoria 02-07 (Same l 17:52: as:Robaxin ) Lactated No 1,000 mL, Boy andrés Ringers 8 Rate: 75 l 1,000 mL 17:52: ml/hr, Infuse over: 13.3 hr, Route: IV, Dosing Weight 89.545 kg, Total Volume: 1,000, Start date: 02/08/16 12:52:00 CDT, Duration: 30 day, Stop date: 03/09/16 12:51:00 CDT Flexeril No Notes: Memoria 02-07 (Same As: l 17:52: Flexeril) Diphenhydra No Notes: Boy andrés mine 02-07 (Same as: l 17:52: Benadryl) phenol No Notes: Memoria 02-07 Chlorasept l 17:52: ic [place] (Same as: Chlorasept ic, Sore Throat [place]) WASTE: F/P - Black; E - Municipal Trash Bin Robaxin No Notes: Memoria 8 (Same l 17:52: as:Robaxin ) Lactated No 1,000 mL, Boy andrés Ringers 8-23 Rate: 75 l 1,000 mL 17:52: ml/hr, [place] 00 Infuse over: 13.3 hr, Route: IV, Dosing Weight 89.545 kg, Total Volume: 1,000, Start date: 02/08/16 12:52:00 CDT, Duration: 30 day, Stop date: 03/09/16 12:51:00 CDT Flexeril No Notes: Memoria 02-07 (Same As: l 17:52: Flexeril) Diphenhydra No Notes: Boy andrés mine 02-07 (Same as: l 17:52: Benadryl) phenol No Notes: Memoria 02-07 Chlorasept l 17:52: ic [place] (Same as: Chlorasept ic, Sore Throat [place]) WASTE: F/P - Black; E - Municipal Trash Bin Robaxin No Notes: Memoria 02-07 (Same l 17:52: as:Robaxin ) Lactated No 1,000 mL, Boy andrés Ringers 8 Rate: 75 l 1,000 mL 17:52: ml/hr, Infuse over: 13.3 hr, Route: IV, Dosing Weight 89.545 kg, Total Volume: 1,000, Start date: 02/08/16 12:52:00 CDT, Duration: 30 day, Stop date: 03/09/16 12:51:00 CDT Flexeril No Notes: Memoria 02-07 (Same As: l 17:52: Flexeril) Diphen[place]dra No Notes: Boy andrés mine 02-07 (Same as: l 17:52: Benadryl) phenol No Notes: Memoria 02-07 Chlorasept l 17:52: ic [place] (Same as: Chlorasept ic, Sore Throat [place]) WASTE: F/P - Black; E - Municipal Trash Bin Robaxin No Notes: Memoria 02-07 (Same l 17:52: as:Robaxin ) Lactated No 1,000 mL, Boy andrés Ringers 8-23 Rate: 75 l 1,000 mL 17:52: ml/hr, [place] 00 Infuse over: 13.3 hr, Route: IV, Dosing Weight 89.545 kg, Total Volume: 1,000, Start date: 02/08/16 12:52:00 CDT, Duration: 30 day, Stop date: 03/09/16 12:51:00 CDT Robaxin No Notes: Memoria 8- (Same l 17:52: as:Robaxin ) Lactated No 1,000 mL, Boy andrés Ringers - Rate: 75 l 1,000 mL 17:52: ml/hr, Infuse over: 13.3 hr, Route: IV, Dosing Weight 89.545 kg, Total Volume: 1,000, Start date: 02/08/16 12:52:00 CDT, Duration: 30 day, Stop date: 03/09/16 12:51:00 CDT Flexeril No Notes: Memoria 8- (Same As: l 17:52: Flexeril) Diphen[place]dra No Notes: Boy andrés mine 8- (Same as: l 17:52: Benadryl) phenol No Notes: Memoria 02-07 Chlorasept l 17:52: ic [place] (Same as: Chlorasept ic, Sore Throat [place]) WASTE: F/P - Black; E - Municipal Trash Bin Flexeril No Notes: Memoria 8- (Same As: l 17:52: Flexeril) Diphenhydra No Notes: Boy andrés mine 8- (Same as: l 17:52: Benadryl) phenol No Notes: Memoria 02-07 Chlorasept l 17:52: ic [place] (Same as: Chlorasept ic, Sore Throat [place]) WASTE: F/P - Black; E - Municipal Trash Bin Diphenhydra No Notes: Boy andrés mine 8-23 (Same as: l 17:52: Benadryl) phenol No Notes: Memoria 8 Chlorasept l 17:52: ic [place] (Same as: Chlorasept ic, Sore Throat [place]) WASTE: F/P - Black; E - Municipal Trash Bin Robaxin No Notes: Memoria - (Same l 17:52: as:Robaxin [place] ) Lactated No 1,000 mL, Boy andrés Ringers 02-07 Rate: 75 l 1,000 mL 17:52: ml/hr, [place] 00 Infuse over: 13.3 hr, Route: IV, Dosing Weight 89.545 kg, Total Volume: 1,000, Start date: 02/08/16 12:52:00 CDT, Duration: 30 day, Stop date: 03/09/16 12:51:00 CDT Flexeril No Notes: Memoria 02-07 (Same As: l 17:52: Flexeril) [place] ceFAZolin No Notes: Memori a 8 Same as: l 03:00: Ancef [place] ceFAZolin No Notes: Memori a 8 Same as: l 03:00: Ancef [place] ceFAZolin 2015-0 No Notes: Memori a 8 Same as: l 03:00: Ancef [place] ceFAZolin 2015-0 No Notes: Memori a 8 Same as: l 03:00: Ancef [place] ceFAZolin 2015-0 No Notes: Memori a 8- Same as: l 03:00: Ancef [place] ceFAZolin 2015-0 No Notes: Memori a 8- Same as: l 03:00: Ancef [place] ceFAZolin 2015-0 No Notes: Memori a 8 Same as: l 03:00: Ancef [place] ceFAZolin 2015-0 No Notes: Memori a 8- Same as: l 03:00: Ancef [place] 00 ceFAZolin 2015-0 No Notes: Memori a 8- Same as: l 03:00: Ancef [place] 00 ceFAZolin 2015-0 No Notes: Memori a 8- Same as: l 03:00: Ancef [place] 00 ceFAZolin 2015-0 No Notes: Memori a 8- Same as: l 03:00: Ancef [place] ceFAZolin 2015-0 No Notes: Memori a 8- Same as: l 03:00: Ancef [place] ceFAZolin No Notes: Memori a 8 Same as: l 03:00: Ancef [place] ceFAZolin No Notes: Memori a 8 Same as: l 03:00: Ancef [place] ceFAZolin No Notes: Memori a 02-07 Same as: l 03:00: Ancef [place] ceFAZolin No Notes: Memori a 8 Same as: l 03:00: Ancef [place] ceFAZolin No Notes: Memori a 02-07 Same as: l 03:00: Ancef [place] ceFAZolin No Notes: Memori a 02-07 Same as: l 03:00: Ancef [place] ceFAZolin No Notes: Memori a 02-07 Same as: l 03:00: Ancef Luke 0.9 % 0.9 % No 0.9 % [...] s pen s pen subcutaneo us pen Ofirmev Ofirmev No Ofirmev Azal ea 02-07 Orthope 00:00: dic 00 [...] s pen s pen subcutaneo us pen Ofirmev Ofirmev No Ofirmev Azal ea 02-07 Orthope 00:00: dic 00 [...] Her kowalski 00 Refill(s) Acetaminoph No Notes: Byo andrés en 325 MG / 02 Same as l Hydrocodone 14:32: Clarence Anitra nn Bitartrate 00 325-7.5mg 7.5 MG Oral Do not Tablet exceed [Clarence 4gm/day of 7.5/325] acetaminop hen. Acetaminoph No Notes: Boy andrés en 325 MG / 802 Same as l Hydrocodone 14:32: Clarence Anitra nn Bitartrate 00 325-7.5mg 7.5 MG Oral Do not Tablet exceed [Clarence 4gm/day of 7.5/325] acetaminop hen. Acetaminoph No Notes: Boy andrés en 325 MG / 802 Same as l Hydrocodone 14:32: Clarence Anitra nn Bitartrate 00 325-7.5mg 7.5 MG Oral Do not Tablet exceed [Clarence 4gm/day of 7.5/325] acetaminop hen. Acetaminoph No Notes: Boy andrés en 325 MG / 802 Same as l Hydrocodone 14:32: Clarence Anitra nn Bitartrate 00 325-7.5mg 7.5 MG Oral Do not Tablet exceed [Clarence 4gm/day of 7.5/325] acetaminop hen. Acetaminoph No Notes: Boy andrés en 325 MG / 8-02 Same as l Hydrocodone 14:32: Clarence Anitra nn Bitartrate 00 325-7.5mg 7.5 MG Oral Do not Tablet exceed [Clarence 4gm/day of 7.5/325] acetaminop hen. Acetaminoph No Notes: Boy andrés en 325 MG / 8-02 Same as l Hydrocodone 14:32: Clarence Anitra nn Bitartrate 00 325-7.5mg 7.5 MG Oral Do not Tablet exceed [Clarence 4gm/day of 7.5/325] acetaminop hen. Acetaminoph No Notes: Boy andrés en 325 MG / 8-02 Same as l Hydrocodone 14:32: Clarence Anitra nn Bitartrate 00 325-7.5mg 7.5 MG Oral Do not Tablet exceed [Clarence 4gm/day of 7.5/325] acetaminop hen. Acetaminoph No Notes: Boy andrés en 325 MG / 8-02 Same as l Hydrocodone 14:32: Clarence Anitra nn Bitartrate 00 325-7.5mg 7.5 MG Oral Do not Tablet exceed [Clarence 4gm/day of 7.5/325] acetaminop hen. Acetaminoph No Notes: Boy andrés en 325 MG / 8-02 Same as l Hydrocodone 14:32: Clarence Anitra nn Bitartrate 00 325-7.5mg 7.5 MG Oral Do not Tablet exceed [Clarence 4gm/day of 7.5/325] acetaminop hen. Acetaminoph No Notes: Boy andrés en 325 MG / 8-02 Same as l Hydrocodone 14:32: Clarence Anitra nn Bitartrate 00 325-7.5mg 7.5 MG Oral Do not Tablet exceed [Clarence 4gm/day of 7.5/325] acetaminop hen. Acetaminoph No Notes: Boy andrés en 325 MG / 8-02 Same as l Hydrocodone 14:32: Clarence Anitra nn Bitartrate 00 325-7.5mg 7.5 MG Oral Do not Tablet exceed [Clarence 4gm/day of 7.5/325] acetaminop hen. Acetaminoph No Notes: Boy andrés en 325 MG / 8-02 Same as l Hydrocodone 14:32: Clarence Anitra nn Bitartrate 00 325-7.5mg 7.5 MG Oral Do not Tablet exceed [Clarence 4gm/day of 7.5/325] acetaminop hen. Acetaminoph No Notes: Boy andrés en 325 MG / 8-02 Same as l Hydrocodone 14:32: Clarence Anitra nn Bitartrate 00 325-7.5mg 7.5 MG Oral Do not Tablet exceed [Clarence 4gm/day of 7.5/325] acetaminop hen. Acetaminoph No Notes: Boy andrés en 325 MG / 8-02 Same as l Hydrocodone 14:32: Clarence Anitra nn Bitartrate 00 325-7.5mg 7.5 MG Oral Do not Tablet exceed [Clarence 4gm/day of 7.5/325] acetaminop hen. Acetaminoph No Notes: Boy andrés en 325 MG / 8-02 Same as l Hydrocodone 14:32: Clarence Anitar nn Bitartrate 00 325-7.5mg 7.5 MG Oral Do not Tablet exceed [Clarence 4gm/day of 7.5/325] acetaminop hen. Acetaminoph No Notes: Boy andrés en 325 MG / 8-02 Same as l Hydrocodone 14:32: Clarence Anitra nn Bitartrate 00 325-7.5mg 7.5 MG Oral Do not Tablet exceed [Clarence 4gm/day of 7.5/325] acetaminop hen. Acetaminoph No Notes: Boy andrés en 325 MG / 8-02 Same as l Hydrocodone 14:32: Clarence Anitra nn Bitartrate 00 325-7.5mg 7.5 MG Oral Do not Tablet exceed [Clarence 4gm/day of 7.5/325] acetaminop hen. Acetaminoph No Notes: Boy andrés en 325 MG / 8-02 Same as l Hydrocodone 14:32: Clarence Anitra nn Bitartrate 00 325-7.5mg 7.5 MG Oral Do not Tablet exceed [Clarence 4gm/day of 7.5/325] acetaminop hen. Acetaminoph 0 No Notes: Boy andrés en 325 MG / 01-17 Same as l Hydrocodone 14:32: Clarence Anitra nn Bitartrate 00 325-7.5mg 7.5 MG Oral Do not Tablet exceed [Clarence 4gm/day of 7.5/325] acetaminop hen. sodium 2015-0 [...] CDT, Stop date: 02/16/16 16:41:00 CDT heparin 0 No Notes: Memoria sodium, 7-31 porcine l porcine 02:00: heparin Luke 2500 UNT/ML 00 Injectable Solution heparin No Notes: Memoria sodium, 7-31 porcine l porcine 02:00: heparin Luke 2500 UNT/ML 00 Injectable Solution heparin No Notes: Memoria sodium, 7-31 porcine l porcine 02:00: heparin [place] 2500 UNT/ML 00 Injectable Solution heparin No Notes: Memoria sodium, 7-31 porcine l porcine 02:00: heparin [place] 2500 UNT/ML 00 Injectable Solution heparin No Notes: Memoria sodium, 7-31 porcine l porcine 02:00: heparin [place] 2500 UNT/ML 00 Injectable Solution heparin No Notes: Memoria sodium, 01-15 porcine l porcine 02:00: heparin [place] 2500 UNT/ML 00 Injectable Solution heparin No Notes: Memoria sodium, 31 porcine l porcine 02:00: heparin [place] 2500 UNT/ML 00 Injectable Solution heparin No Notes: Memoria sodium, 31 porcine l porcine 02:00: heparin [place] 2500 UNT/ML 00 Injectable Solution heparin No Notes: Memoria sodium, 01-15 porcine l porcine 02:00: heparin [place] 2500 UNT/ML 00 Injectable Solution heparin No Notes: Memoria sodium, 01-15 porcine l porcine 02:00: heparin [place] 2500 UNT/ML 00 Injectable Solution heparin No Notes: Memoria sodium, 01-15 porcine l porcine 02:00: heparin [place] 2500 UNT/ML 00 Injectable Solution heparin No Notes: Memoria sodium, 31 porcine l porcine 02:00: heparin [place] 2500 UNT/ML 00 Injectable Solution heparin No Notes: Memoria sodium, 01-15 porcine l porcine 02:00: heparin [place] 2500 UNT/ML 00 Injectable Solution heparin No Notes: Memoria sodium, 01-15 porcine l porcine 02:00: heparin [place] 2500 UNT/ML 00 Injectable Solution heparin No Notes: Memoria sodium, 31 porcine l porcine 02:00: heparin [place] 2500 UNT/ML 00 Injectable Solution heparin No Notes: Memoria sodium, 31 porcine l porcine 02:00: heparin [place] 2500 UNT/ML 00 Injectable Solution heparin No Notes: Memoria sodium, 01-15 porcine l porcine 02:00: heparin [place] 2500 UNT/ML 00 Injectable Solution heparin No Notes: Memoria sodium, 01-15 porcine l porcine 02:00: heparin [place] 2500 UNT/ML 00 Injectable Solution heparin No Notes: Memoria sodium, 01-15 porcine l porcine 02:00: heparin [place] 2500 UNT/ML 00 Injectable Solution gabapentin No Notes: Memor ia 300 MG Oral 01-15 (Same as: l Capsule 00:22: Neurontin) Herm robert gabapentin No Notes: Memor ia 300 MG Oral 01-15 (Same as: l Capsule 00:22: Neurontin) Herm robert gabapentin 2016-0 No Notes: Memor ia 300 [...] No Notes: Memor ia 300 MG Oral 7- (Same as: l Capsule 00:22: Neurontin) Herm robert heparin, heparin, No heparin, A zalea porcine porcine 7-31 porcine Orthop e (PF) 25,000 (PF) 25,000 00:00: (PF) dic unit/10 mL unit/10 mL 00 25,000 S ports intravenous intravenous unit/10 mL Medicin solution solution intravenou e s solution heparin, heparin, No heparin, A zalea porcine porcine 7-31 porcine Orthop e (PF) 25,000 (PF) 25,000 00:00: (PF) dic unit/10 mL unit/10 mL 00 25,000 S ports intravenous intravenous unit/10 mL Medicin solution solution intravenou e s solution Insulin, No Notes: Memoria Aspart, 7 Roll in l Human 21:30: palms of [place] 00 hands gently; Do not shake vigorously . (Same as: NovoLOG) "single patient use only" WASTE: F/P - Black; E - Municipal Trash Bin Stable for 28 days at room temperatur e. Expires in days from ____Date Insulin, No Notes: Memoria Aspart, 7- Roll in l Human 21:30: palms of [place] 00 hands gently; Do not shake vigorously . (Same as: NovoLOG) "single patient use only" WASTE: F/P - Black; E - Municipal Trash Bin Stable for 28 days at room temperatur e. Expires in days from ____Date Insulin, No Notes: Memoria Aspart, 7-29 Roll in l Human 21:30: palms of [place] 00 hands gently; Do not shake vigorously [...] Roll in l Human 21:30: palms of [place] 00 hands gently; Do not shake vigorously . (Same as: NovoLOG) "single patient use only" WASTE: F/P - Black; E - Municipal Trash Bin Stable for 28 days at room temperatur e. Expires in days from ____Date Insulin, No Notes: Memoria Aspart, 7-29 Roll in l Human 21:30: palms of [place] 00 hands gently; Do not shake vigorously . (Same as: NovoLOG) "single patient use only" WASTE: F/P - Black; E - Municipal Trash Bin Stable for 28 days at room temperatur e. Expires in days from ____Date Insulin, No Notes: Memoria Aspart, 7-29 Roll in l Human 21:30: palms of [place] 00 hands gently; Do not shake vigorously [...] Roll in l Human 21:30: palms of [place] 00 hands gently; Do not shake vigorously [...] Roll in l Human 21:30: palms of [place] 00 hands gently; Do not shake vigorously . (Same as: NovoLOG) "single patient use only" WASTE: F/P - Black; E - Municipal Trash Bin Stable for 28 days at room temperatur e. Expires in days from ____Date Insulin, No Notes: Memoria Aspart, 7-29 Roll in l Human 21:30: palms of [place] 00 hands gently; Do not shake vigorously . (Same as: NovoLOG) "single patient use only" WASTE: F/P - Black; E - Municipal Trash Bin Stable for 28 days at room temperatur e. Expires in days from ____Date Insulin, No Notes: Memoria Aspart, 7-29 Roll in l Human 21:30: palms of [place] 00 hands gently; Do not shake vigorously . (Same as: NovoLOG) "single patient use only" WASTE: F/P - Black; E - Municipal Trash Bin Stable for 28 days at room temperatur e. Expires in days from ____Date Insulin, 0 No Notes: Memoria Aspart, 7-29 Roll in l Human 21:30: palms of [place] 00 hands gently; Do not shake vigorously . (Same as: NovoLOG) "single patient use only" WASTE: F/P - Black; E - Municipal Trash Bin Stable for 28 days at room temperatur e. Expires in days from ____Date Hydralazine No Notes: Boy andrés 7-29 (Same as: l 19:44: Apresoline [place] 00 ) Push over 5 minutes Hydralazine No Notes: Boy andrés 7-29 (Same as: l 19:44: Apresoline Luke ) Push over 5 minutes Hydralazine No Notes: Boy andrés 7-29 (Same as: l 19:44: Apresoline [place] 00 ) Push over 5 minutes Hydralazine No Notes: Boy andrés 7-29 (Same as: l 19:44: Apresoline [place] 00 ) Push over 5 minutes Hydralazine No Notes: Boy andrés 7-29 (Same as: l 19:44: Apresoline [place] 00 ) Push over 5 minutes Hydralazine No Notes: Boy andrés 7-29 (Same as: l 19:44: Apresoline Luke 00 ) Push over 5 minutes Hydralazine No Notes: Boy andrés 7-29 (Same as: l 19:44: Apresoline [place] 00 ) Push over 5 minutes Hydralazine No Notes: Boy andrés 7-29 (Same as: l 19:44: Apresoline [place] 00 ) Push over 5 minutes Hydralazine No Notes: Boy andrés 7-29 (Same as: l 19:44: Apresoline [place] 00 ) Push over 5 minutes Hydralazine No Notes: Boy andrés 7-29 (Same as: l 19:44: Apresoline Luke 00 ) Push over 5 minutes Hydralazine No Notes: Boy andrés 7-29 (Same as: l 19:44: Apresoline [place] 00 ) Push over 5 minutes Hydralazine 2015-0 No Notes: Boy andrés 7-29 (Same as: l 19:44: Apresoline [place] 00 ) Push over 5 minutes Hydralazine 2016-0 No Notes: Boy andrés 7-29 (Same as: l 19:44: Apresoline Luke 00 ) Push over 5 minutes Hydralazine 0 No Notes: Boy andrés 7-29 (Same as: l 19:44: Apresoline Luke 00 ) Push over 5 minutes Hydralazine 0 No Notes: Boy andrés 7-29 (Same as: l 19:44: Apresoline Luke 00 ) Push over 5 minutes Hydralazine 0 No Notes: Boy andrés 7-29 (Same as: l 19:44: Apresoline [place] 00 ) Push over 5 minutes Hydralazine 0 No Notes: Boy andrés 7-29 (Same as: l 19:44: Apresoline [place] 00 ) Push over 5 minutes Hydralazine 0 No Notes: Boy andrés 7-29 (Same as: l 19:44: Apresoline Luke 00 ) Push over 5 minutes Hydralazine 0 No Notes: Boy andrés 7-29 (Same as: l 19:44: Apresoline [place] 00 ) Push over 5 minutes Ativan No Notes: Memoria 7-28 (Same as: l 20:06: Ativan) [place] Ativan No Notes: Memoria 7-28 (Same as: l 20:06: Ativan) [place] Ativan No Notes: Memoria 7-28 (Same as: l 20:06: Ativan) Luke Ativan No Notes: Memoria 7-28 (Same as: l 20:06: Ativan) [place] Ativan No Notes: Memoria 7-28 (Same as: l 20:06: Ativan) Luke Ativan No Notes: Memoria 7-28 (Same as: l 20:06: Ativan) Luke Ativan No Notes: Memoria 7-28 (Same as: l 20:06: Ativan) Luke 00 Ativan No Notes: Memoria 7-28 (Same as: l 20:06: Ativan) Luke 00 Ativan No Notes: Memoria 7-28 (Same as: l 20:06: Ativan) [place] No Notes: Memoria 7-28 (Same as: l 20:06: Ativan) [place] No Notes: Memoria 7-28 (Same as: l 20:06: Ativan) [place] No Notes: Memoria 7-28 (Same as: l 20:06: Ativan) [place] No Notes: Memoria 7-28 (Same as: l 20:06: Ativan) Lukeivan No Notes: Memoria 7-28 (Same as: l 20:06: Ativan) ivan No Notes: Memoria 7-28 (Same as: l 20:06: Ativan) Lukeivan No Notes: Memoria 7-28 (Same as: l 20:06: Ativan) Lukeivan No Notes: Memoria 7-28 (Same as: l 20:06: Ativan) Lukeivan No Notes: Memoria 7-28 (Same as: l 20:06: Ativan) [place] No Notes: Memoria 7-28 (Same as: l 20:06: Ativan) Luke Acetaminoph No 1 tab, Boy andrés en 325 MG / 01-12 Route: PO, l Hydrocodone 20:05: Drug Form: [place] Bitartrate 00 TAB, 10 MG Oral Dosing Tablet Weight [Clarence 97.983, 10/325] kg, Q4H, Start date: 01/13/16 15:05:00 CDT, Stop date: 02/12/16 16:00:00 CDT Acetaminoph No 1 tab, Boy andrés en 325 MG / 01-12 Route: PO, l Hydrocodone 20:05: Drug Form: [place] Bitartrate 00 TAB, 10 MG Oral Dosing Tablet Weight [Clarence 97.983, 10/325] kg, Q4H, Start date: 01/13/16 15:05:00 CDT, Stop date: 02/12/16 16:00:00 CDT Acetaminoph 2015-0 No 1 tab, Boy andrés en 325 MG / 01-12 Route: PO, l Hydrocodone 20:05: Drug Form: Luke Bitartrate 00 TAB, 10 MG Oral Dosing Tablet Weight [Clarence 97.983, 10/325] kg, Q4H, Start date: 01/13/16 15:05:00 CDT, Stop date: 02/12/16 16:00:00 CDT Acetaminoph 0 No 1 tab, Boy andrés en 325 MG / 01-12 Route: PO, l Hydrocodone 20:05: Drug Form: Luke Bitartrate 00 TAB, 10 MG Oral Dosing Tablet Weight [Clarence 97.983, 10/325] kg, Q4H, Start date: 01/13/16 15:05:00 CDT, Stop date: 02/12/16 16:00:00 CDT Acetaminoph 0 No 1 tab, Boy andrés en 325 MG / 01-12 Route: PO, l Hydrocodone 20:05: Drug Form: Luke Bitartrate 00 TAB, 10 MG Oral Dosing Tablet Weight [Clarence 97.983, 10/325] kg, Q4H, Start date: 01/13/16 15:05:00 CDT, Stop date: 02/12/16 16:00:00 CDT Acetaminoph 2015-0 No 1 tab, Boy andrés en 325 MG / 01-12 Route: PO, l Hydrocodone 20:05: Drug Form: Luke Bitartrate 00 TAB, 10 MG Oral Dosing Tablet Weight [Clarence 97.983, 10/325] kg, Q4H, Start date: 01/13/16 15:05:00 CDT, Stop date: 02/12/16 16:00:00 CDT Acetaminoph 0 No 1 tab, Boy andrés en 325 MG / 01-12 Route: PO, l Hydrocodone 20:05: Drug Form: Luke Bitartrate 00 TAB, 10 MG Oral Dosing Tablet Weight [Clarence 97.983, 10/325] kg, Q4H, Start date: 01/13/16 15:05:00 CDT, Stop date: 02/12/16 16:00:00 CDT Acetaminoph 2015-0 No 1 tab, Boy andrés en 325 MG / 01-12 Route: PO, l Hydrocodone 20:05: Drug Form: [place] Bitartrate 00 TAB, 10 MG Oral Dosing Tablet Weight [Clarence 97.983, 10/325] kg, Q4H, Start date: 01/13/16 15:05:00 CDT, Stop date: 02/12/16 16:00:00 CDT Acetaminoph 0 No 1 tab, Boy andrés en 325 MG / 01-12 Route: PO, l Hydrocodone 20:05: Drug Form: [place] Bitartrate 00 TAB, 10 MG Oral Dosing Tablet Weight [Clarence 97.983, 10/325] kg, Q4H, Start date: 01/13/16 15:05:00 CDT, Stop date: 02/12/16 16:00:00 CDT Acetaminoph 2015-0 No 1 tab, Boy andrés en 325 MG / 01-12 Route: PO, l Hydrocodone 20:05: Drug Form: Luke Bitartrate 00 TAB, 10 MG Oral Dosing Tablet Weight [Clarence 97.983, 10/325] kg, Q4H, Start date: 01/13/16 15:05:00 CDT, Stop date: 02/12/16 16:00:00 CDT Acetaminoph 2015-0 No 1 tab, Boy andrés en 325 MG / 01-12 Route: PO, l Hydrocodone 20:05: Drug Form: [place] Bitartrate 00 TAB, 10 MG Oral Dosing Tablet Weight [Clarence 97.983, 10/325] kg, Q4H, Start date: 01/13/16 15:05:00 CDT, Stop date: 02/12/16 16:00:00 CDT Acetaminoph 2015-0 No 1 tab, Boy andrés en 325 MG / 01-12 Route: PO, l Hydrocodone 20:05: Drug Form: [place] Bitartrate 00 TAB, 10 MG Oral Dosing Tablet Weight [Clarence 97.983, 10/325] kg, Q4H, Start date: 01/13/16 15:05:00 CDT, Stop date: 02/12/16 16:00:00 CDT Acetaminoph 2015-0 No 1 tab, Boy andrés en 325 MG / 01-12 Route: PO, l Hydrocodone 20:05: Drug Form: [place] Bitartrate 00 TAB, 10 MG Oral Dosing Tablet Weight [Clarence 97.983, 10/325] kg, Q4H, Start date: 01/13/16 15:05:00 CDT, Stop date: 02/12/16 16:00:00 CDT Acetaminoph 0 No 1 tab, Boy andrés en 325 MG / 01-12 Route: PO, l Hydrocodone 20:05: Drug Form: [place] Bitartrate 00 TAB, 10 MG Oral Dosing Tablet Weight [Clarence 97.983, 10/325] kg, Q4H, Start date: 01/13/16 15:05:00 CDT, Stop date: 02/12/16 16:00:00 CDT Acetaminoph 0 No 1 tab, Boy andrés en 325 MG / 01-12 Route: PO, l Hydrocodone 20:05: Drug Form: Luke Bitartrate 00 TAB, 10 MG Oral Dosing Tablet Weight [Clarence 97.983, 10/325] kg, Q4H, Start date: 01/13/16 15:05:00 CDT, Stop date: 02/12/16 16:00:00 CDT Acetaminoph 0 No 1 tab, Boy andrés en 325 MG / 01-12 Route: PO, l Hydrocodone 20:05: Drug Form: [place] Bitartrate 00 TAB, 10 MG Oral Dosing Tablet Weight [Clarence 97.983, 10/325] kg, Q4H, Start date: 01/13/16 15:05:00 CDT, Stop date: 02/12/16 16:00:00 CDT Acetaminoph 2015-0 No 1 tab, Boy andrés en 325 MG / 01-12 Route: PO, l Hydrocodone 20:05: Drug Form: Luke Bitartrate 00 TAB, 10 MG Oral Dosing Tablet Weight [Clarence 97.983, 10/325] kg, Q4H, Start date: 01/13/16 15:05:00 CDT, Stop date: 02/12/16 16:00:00 CDT Acetaminoph 0 No 1 tab, Boy andrés en 325 MG / 01-12 Route: PO, l Hydrocodone 20:05: Drug Form: [place] Bitartrate 00 TAB, 10 MG Oral Dosing Tablet Weight [Clarence 97.983, 10/325] kg, Q4H, Start date: 01/13/16 15:05:00 CDT, Stop date: 02/12/16 16:00:00 CDT Acetaminoph 0 No 1 tab, Boy andrés en 325 MG / 01-12 Route: PO, l Hydrocodone 20:05: Drug Form: [place] Bitartrate 00 TAB, 10 MG Oral Dosing Tablet Weight [Clarence 97.983, 10/325] kg, Q4H, Start date: 01/13/16 15:05:00 CDT, Stop date: 02/12/16 16:00:00 CDT Miralax No Notes: Memoria 7-28 Dissolve l 14:11: in 8 oz of [place] 00 water or juice. (Same as: Miralax) Miralax No Notes: Memoria 7-28 Dissolve l 14:11: in 8 oz of [place] 00 water or juice. (Same as: Miralax) Miralax No Notes: Memoria 7-28 Dissolve l 14:11: in 8 oz of [place] 00 water or juice. (Same as: Miralax) Miralax No Notes: Memoria 7-28 Dissolve l 14:11: in 8 oz of [place] 00 water or juice. (Same as: Miralax) Miralax No Notes: Memoria 7-28 Dissolve l 14:11: in 8 oz of [place] 00 water or juice. (Same as: Miralax) Miralax 0 No Notes: Memoria 7-28 Dissolve l 14:11: in 8 oz of [place] 00 water or juice. (Same as: Miralax) Miralax 0 No Notes: Memoria 7-28 Dissolve l 14:11: in 8 oz of [place] 00 water or juice. (Same as: Miralax) Miralax 0 No Notes: Memoria 7-28 Dissolve l 14:11: in 8 oz of [place] 00 water or juice. (Same as: Miralax) Miralax No Notes: Memoria 7-28 Dissolve l 14:11: in 8 oz of [place] 00 water or juice. (Same as: Miralax) Miralax No Notes: Memoria 7-28 Dissolve l 14:11: in 8 oz of [place] 00 water or juice. (Same as: Miralax) Miralax No Notes: Memoria 7-28 Dissolve l 14:11: in 8 oz of [place] 00 water or juice. (Same as: Miralax) Miralax No Notes: Memoria 7-28 Dissolve l 14:11: in 8 oz of [place] 00 water or juice. (Same as: Miralax) Miralax No Notes: Memoria 7-28 Dissolve l 14:11: in 8 oz of [place] 00 water or juice. (Same as: Miralax) Miralax No Notes: Memoria 7-28 Dissolve l 14:11: in 8 oz of [place] 00 water or juice. (Same as: Miralax) Miralax No Notes: Memoria 7-28 Dissolve l 14:11: in 8 oz of [place] 00 water or juice. (Same as: Miralax) Miralax No Notes: Memoria 7-28 Dissolve l 14:11: in 8 oz of [place] 00 water or juice. (Same as: Miralax) Miralax No Notes: Memoria 7-28 Dissolve l 14:11: in 8 oz of [place] 00 water or juice. (Same as: Miralax) Miralax No Notes: Memoria 7-28 Dissolve l 14:11: in 8 oz of [place] 00 water or juice. (Same as: Miralax) Miralax No Notes: Memoria 7-28 Dissolve l 14:11: in 8 oz of [place] 00 water or juice. (Same as: Miralax) Ativan Ativan No Ativan Arlin 01-12 Orthope 00:00: dic 00 Sports Medicin e Miralax Miralax No Miralax Azal ea 01-12 Orthope 00:00: dic 00 Sports Medicin e Ativan Ativan 2016-0 No Ativan Arlin 01-12 Orthope 00:00: dic 00 Sports Medicin e Miralax Miralax 2016-0 No Miralax Azal ea 01-12 Orthope 00:00: dic 00 Sports Medicin e Lorazepam 2016-0 No 0.5 mg, Memor ia 01-11 Route: l 15:44: IVP, Drug [place] 00 form: INJ, ONCE, Dosing Weight 97.983, kg, PRN Anxiety, Priority: NOW, Start date: 01/12/16 10:44:00 CDT Lorazepam 2016-0 No 0.5 mg, Memor ia 01-11 Route: l 15:44: IVP, Drug [place] 00 form: INJ, ONCE, Dosing Weight 97.983, kg, PRN Anxiety, Priority: NOW, Start date: 01/12/16 10:44:00 CDT Lorazepam 2016-0 No 0.5 mg, Memor ia 01-11 Route: l 15:44: IVP, Drug [place] 00 form: INJ, ONCE, Dosing Weight 97.983, kg, PRN Anxiety, Priority: NOW, Start date: 01/12/16 10:44:00 CDT Lorazepam 2016-0 No 0.5 mg, Memor ia 01-11 Route: l 15:44: IVP, Drug [place] 00 form: INJ, ONCE, Dosing Weight 97.983, kg, PRN Anxiety, Priority: NOW, Start date: 01/12/16 10:44:00 CDT Lorazepam 2016-0 No 0.5 mg, Memor ia 01-11 Route: l 15:44: IVP, Drug [place] 00 form: INJ, ONCE, Dosing Weight 97.983, kg, PRN Anxiety, Priority: NOW, Start date: 01/12/16 10:44:00 CDT Lorazepam 2016-0 No 0.5 mg, Memor ia 01-11 Route: l 15:44: IVP, Drug [place] 00 form: INJ, ONCE, Dosing Weight 97.983, kg, PRN Anxiety, Priority: NOW, Start date: 01/12/16 10:44:00 CDT Lorazepam 2016-0 No 0.5 mg, Memor ia 01-11 Route: l 15:44: IVP, Drug [place] 00 form: INJ, ONCE, Dosing Weight 97.983, [...] ia 7- Route: l 15:44: IVP, Drug [place] 00 form: INJ, ONCE, Dosing Weight 97.983, [...] ia 7- Route: l 15:44: IVP, Drug [place] 00 form: INJ, ONCE, Dosing Weight 97.983, kg, PRN Anxiety, Priority: NOW, Start date: 01/12/16 10:44:00 CDT Lorazepam 2016-0 No 0.5 mg, Memor ia 7- Route: l 15:44: IVP, Drug [place] 00 form: INJ, ONCE, Dosing Weight 97.983, kg, PRN Anxiety, Priority: NOW, Start date: 01/12/16 10:44:00 CDT Lorazepam 2016-0 No 0.5 mg, Memor ia 7- Route: l 15:44: IVP, Drug [place] 00 form: INJ, ONCE, Dosing Weight 97.983, [...] ia 7- Route: l 15:44: IVP, Drug [place] 00 form: INJ, ONCE, Dosing Weight 97.983, kg, PRN Anxiety, Priority: NOW, Start date: 01/12/16 10:44:00 CDT Lorazepam 2016-0 No 0.5 mg, Memor ia 7- Route: l 15:44: IVP, Drug [place] 00 form: INJ, ONCE, Dosing Weight 97.983, kg, PRN Anxiety, Priority: NOW, Start date: 01/12/16 10:44:00 CDT Tradjenta 2016-0 No 5 mg, Memoria 7-27 Route: PO, l 14:00: Drug form: [place] 00 TAB, Daily, Dosing Weight 97.983, kg, Start date: 01/12/16 9:00:00 CDT irbesartan 2015-0 No Notes: Memor ia 7-27 (Same l 14:00: as:Avapro) Luke 00 Furosemide 2015-0 No Notes: Memor ia 20 MG Oral 7-27 (Same as: l Tablet 14:00: Lasix) May Anitra nn cause GI upset. Give with food or milk. glimepiride No Notes: Boy andrés 7-27 (Same as: l 14:00: Amaryl) Tradjenta No Tradjordan Torres emoria mg 7-27 5 mg l (Patient's 14:00: (Patient's H ermann own 00 own medicine) medicine), 1 tab, Drug form: MISC, Route: PO, Daily, 01/12/16 9:00:00 CDT, Duration: 30 day, Stop date: 02/10/16 9:00:00 CDT Aspirin 81 No Notes: Do Me moria MG Enteric 7-27 not crush l Coated 14:00: or chew. [place] Tablet (Same As: Ecotrin) Amlodipine No Notes: Memor ia 7-27 (Same as: l 14:00: Norvasc) Docusate No Notes: Memoria 7-27 (Same as: l 14:00: Colace) [place] (Do Not Crush) Spironolact No Notes: Boy andrés one - (Same As: l 14:00: Aldactone) [...] or milk. glimepiride No Notes: Boy andrés 7-27 (Same as: l 14:00: Amaryl) [place] 00 Tradjenta 5 No Tradjordan Torres emoria mg 7-27 5 mg l [...] Memoria 7-27 (Same as: l 14:00: Colace) [place] (Do Not Crush) Spironolact No Notes: Boy andrés one 7-27 (Same As: l 14:00: Aldactone) Tradjenta No 5 mg, Memoria 7-27 Route: PO, l 14:00: Drug form: [place] 00 TAB, Daily, Dosing Weight 97.983, kg, Start date: 01/12/16 9:00:00 CDT irbesartan No Notes: Memor ia 7-27 (Same l 14:00: as:Avapro) Furosemide No Notes: Memor ia 20 MG Oral 7-27 (Same as: l Tablet 14:00: Lasix) May nn cause GI upset. Give with food or milk. glimepiride No Notes: Boy andrés 7-27 (Same as: l 14:00: Amaryl) Tradjenta [...] Memoria 7-27 (Same as: l 14:00: Colace) [place] (Do Not Crush) Spironolact No Notes: Boy andrés one 7-27 (Same As: l 14:00: Aldactone) Tradjenta No 5 mg, Memoria 7-27 Route: PO, l 14:00: Drug form: [place] 00 TAB, Daily, Dosing Weight 97.983, kg, Start date: 01/12/16 9:00:00 CDT irbesartan No Notes: Memor ia 7-27 (Same l 14:00: as:Avapro) [place] Furosemide No Notes: Memor ia 20 MG Oral 7-27 (Same as: l Tablet 14:00: Lasix) May nn cause GI upset. Give with food or milk. glimepiride No Notes: Boy andrés 7-27 (Same as: l 14:00: Amaryl) Tradjenta 5 No Tradjenta M emoria mg 7-27 5 mg l (Patient's 14:00: (Patient's H erm own 00 own medicine) medicine), 1 tab, Drug form: MISC, Route: PO, Daily, 01/12/16 9:00:00 CDT, Duration: 30 day, Stop date: 02/10/16 9:00:00 CDT Aspirin 81 No Notes: Do Me moria MG Enteric 7-27 not crush l Coated 14:00: or chew. [place] Tablet 00 (Same As: Ecotrin) Amlodipine No Notes: Memor ia 7-27 (Same as: l 14:00: Norvasc) Luke Docusate No Notes: Memoria 7-27 (Same as: l 14:00: Colace) [place] (Do Not Crush) Spironolact No Notes: Boy andrés one 7-27 (Same As: l 14:00: Aldactone) [...] or milk. glimepiride No Notes: Boy andrés 7-27 (Same as: l 14:00: Amaryl) Tradjenta [...] Crush) Spironolact No Notes: Boy andrés one -27 (Same As: l 14:00: Aldactone) Tradjenta No 5 mg, Memoria 7-27 Route: PO, l 14:00: Drug form: TAB, Daily, Dosing Weight 97.983, kg, Start date: 01/12/16 9:00:00 CDT irbesartan No Notes: Memor ia 7-27 (Same l 14:00: as:Avapro) Furosemide No Notes: Memor ia 20 MG Oral 7-27 (Same as: l Tablet 14:00: Lasix) October cause GI upset. Give with food or milk. glimepiride No Notes: Boy andrés 7-27 (Same as: l 14:00: Amaryl) Tradjenta 5 No Tradellaadilsona Brian emoria mg 7-27 5 mg l (Patient's 14:00: (Patient's H ermann own 00 own medicine) medicine), 1 tab, Drug form: MISC, Route: PO, Daily, 01/12/16 9:00:00 CDT, Duration: 30 day, Stop date: 02/10/16 9:00:00 CDT Aspirin 81 No Notes: Do Me moria MG Enteric -27 not crush l Coated 14:00: or chew. Luke Tablet (Same As: Ecotrin) Amlodipine No Notes: Memor ia 7-27 (Same as: l 14:00: Norvasc) Docusate No Notes: Memoria 7-27 (Same as: l 14:00: Colace) Luke (Do Not Crush) Spironolact No Notes: Boy andrés one - (Same As: l 14:00: Aldactone) Tradjenta No 5 mg, Memoria 7-27 Route: PO, l 14:00: Drug form: [place] 00 TAB, Daily, Dosing Weight 97.983, kg, Start date: 01/12/16 9:00:00 CDT irbesartan No Notes: Memor ia 7-27 (Same l 14:00: as:Avapro) Furosemide No Notes: Memor ia 20 MG Oral 7-27 (Same as: l Tablet 14:00: Lasix) May Anitra nn cause GI upset. Give with food or milk. glimepiride No Notes: Boy andrés 7-27 (Same as: l 14:00: Amaryl) Tradjenta 5 No Tradellaadilsona Brian emoria mg 7-27 5 mg l [...] ia 7-27 (Same as: l 14:00: Norvasc) [place] Docusate No Notes: Memoria 7-27 (Same as: l 14:00: Colace) Luke 00 (Do Not Crush) Spironolact No Notes: Byo andrés one 7-27 (Same As: l 14:00: Aldactone) Tradjenta No 5 mg, Memoria 7-27 Route: PO, l 14:00: Drug form: [place] 00 TAB, Daily, Dosing Weight 97.983, kg, Start date: 01/12/16 9:00:00 CDT irbesartan No Notes: Memor ia 7-27 (Same l 14:00: as:Avapro) Furosemide No Notes: Memor ia 20 MG Oral 7-27 (Same as: l Tablet 14:00: Lasix) May nn cause GI upset. Give with food or milk. glimepiride No Notes: Boy andrés 7-27 (Same as: l 14:00: Amaryl) Tradjenta [...] ia 7-27 (Same as: l 14:00: Norvasc) [place] Docusate No Notes: Memoria 7-27 (Same as: l 14:00: Colace) Luke (Do Not Crush) Spironolact No Notes: Boy andrés one 7-27 (Same As: l 14:00: Aldactone) Tradjenta No 5 mg, Memoria 7-27 Route: PO, l 14:00: Drug form: [place] 00 TAB, Daily, Dosing Weight 97.983, kg, Start date: 01/12/16 9:00:00 CDT irbesartan No Notes: Memor ia 7-27 (Same l 14:00: as:Avapro) [place] Furosemide No Notes: Memor ia 20 MG Oral 7-27 (Same as: l Tablet 14:00: Lasix) May nn cause GI upset. Give with food or milk. glimepiride No Notes: Boy andrés 7-27 (Same as: l 14:00: Amaryl) Tradjenta [...] Memoria 7-27 (Same as: l 14:00: Colace) [place] (Do Not Crush) Spironolact No Notes: Boy andrés one 7-27 (Same As: l 14:00: Aldactone) [...] or milk. glimepiride No Notes: Boy andrés 7-27 (Same as: l 14:00: Amaryl) Tradjenta 5 No Tradellaa M emoria mg 7-27 5 mg l (Patient's 14:00: (Patient's H ermann own 00 own medicine) medicine), 1 tab, Drug form: MISC, Route: PO, Daily, 01/12/16 9:00:00 CDT, Duration: 30 day, Stop date: 02/10/16 9:00:00 CDT Aspirin 81 No Notes: Do Me moria MG Enteric 7-27 not crush l Coated 14:00: or chew. [place] Tablet (Same As: Ecotrin) Amlodipine No Notes: Memor ia 7-27 (Same as: l 14:00: Norvasc) Docusate No Notes: Memoria 7-27 (Same as: l 14:00: Colace) (Do Not Crush) Spironolact No Notes: Boy andrés one 7-27 (Same As: l 14:00: Aldactone) Tradjenta No 5 mg, Memoria 7-27 Route: PO, l 14:00: Drug form: [place] TAB, Daily, Dosing Weight 97.983, kg, Start date: 01/12/16 9:00:00 CDT irbesartan No Notes: Memor ia 7-27 (Same l 14:00: as:Avapro) Furosemide No Notes: Memor ia 20 MG Oral 7-27 (Same as: l Tablet 14:00: Lasix) October nn cause GI upset. Give with food or milk. glimepiride No Notes: Boy andrés 7-27 (Same as: l 14:00: Amaryl) [place] 00 Tradjenta 5 No Tradjordan Torres emoria mg 7-27 5 mg l [...] [place] (Do Not Crush) Spironolact No Notes: Oby andrés one 7-27 (Same As: l 14:00: Aldactone) [...] or milk. glimepiride No Notes: Boy andrés 7-27 (Same as: l 14:00: Amaryl) Tradjenta 5 No Tradfedericoa Brian emoria mg 7-27 5 mg l (Patient's 14:00: (Patient's H ermann own 00 own medicine) medicine), 1 tab, Drug form: MISC, Route: PO, Daily, 01/12/16 9:00:00 CDT, Duration: 30 day, Stop date: 02/10/16 9:00:00 CDT Aspirin 81 No Notes: Do Me moria MG Enteric 7-27 not crush l Coated 14:00: or chew. [place] Tablet 00 (Same As: Ecotrin) Amlodipine No Notes: Memor ia 7-27 (Same as: l 14:00: Norvasc) [place] Docusate No Notes: Memoria 7-27 (Same as: l 14:00: Colace) [place] 00 (Do Not Crush) Spironolact No Notes: Boy andrés one 7-27 (Same As: l 14:00: Aldactone) Tradjenta No 5 mg, Memoria 7- Route: PO, l 14:00: Drug form: [place] 00 TAB, Daily, Dosing Weight 97.983, kg, Start date: 01/12/16 9:00:00 CDT irbesartan No Notes: Memor ia 7-27 (Same l 14:00: as:Avapro) Furosemide No Notes: Memor ia 20 MG Oral 7-27 (Same as: l Tablet 14:00: Lasix) May nn cause GI upset. Give with food or milk. glimepiride No Notes: Boy andrés 7-27 (Same as: l 14:00: Amaryl) Tradjenta 5 No Jhon Torres emoria mg 7-27 5 mg l (Patient's 14:00: (Patient's H ermann own 00 own medicine) medicine), 1 tab, Drug form: MISC, Route: PO, Daily, 01/12/16 9:00:00 CDT, Duration: 30 day, Stop date: 02/10/16 9:00:00 CDT Aspirin 81 No Notes: Do Me moria MG Enteric 7-27 not crush l Coated 14:00: or chew. [place] Tablet 00 (Same As: Ecotrin) Amlodipine No Notes: Memor ia 7-27 (Same as: l 14:00: Norvasc) [place] Docusate No Notes: Memoria 7-27 (Same as: l 14:00: Colace) [place] (Do Not Crush) Tradjenta No 5 mg, Memoria 01-11 Route: PO, l 14:00: Drug form: [place] 00 TAB, Daily, Dosing Weight 97.983, kg, Start date: 01/12/16 9:00:00 CDT irbesartan No Notes: Memor ia 7- (Same l 14:00: as:Avapro) [place] Furosemide No Notes: Memor ia 20 MG Oral - (Same as: l Tablet 14:00: Lasix) October nn cause GI upset. Give with food or milk. glimepiride No Notes: Boy andrés - (Same as: l 14:00: Amaryl) Tradjenta 5 No Tradfedericoa M emoria mg -27 5 mg l (Patient's 14:00: (Patient's H ermann own 00 own medicine) medicine), 1 tab, Drug form: MISC, Route: PO, Daily, 01/12/16 9:00:00 CDT, Duration: 30 day, Stop date: 02/10/16 9:00:00 CDT Aspirin 81 No Notes: Do Me moria MG Enteric - not crush l Coated 14:00: or chew. [place] Tablet (Same As: Ecotrin) Amlodipine No Notes: Memor ia - (Same as: l 14:00: Norvasc) [place] Docusate No Notes: Memoria 7- (Same as: l 14:00: Colace) [place] (Do Not Crush) Spironolact No Notes: Boy andrés one - (Same As: l 14:00: Aldactone) [place] Spironolact No Notes: Boy andrés one -27 (Same As: l 14:00: Aldactone) Tradjenta No 5 mg, Memoria 01-11 Route: PO, l 14:00: Drug form: [place] 00 TAB, Daily, Dosing Weight 97.983, kg, Start date: 01/12/16 9:00:00 CDT irbesartan No Notes: Memor ia 7-27 (Same l 14:00: as:Avapro) Furosemide No Notes: Memor ia 20 MG Oral 7-27 (Same as: l Tablet 14:00: Lasix) October cause GI upset. Give with food or milk. glimepiride No Notes: Boy andrés 7-27 (Same as: l 14:00: Amaryl) Tradjenta 5 No Tradjenta M emoria mg 7-27 5 mg l (Patient's 14:00: (Patient's H ermann own 00 own medicine) medicine), 1 tab, Drug form: MISC, Route: PO, Daily, 01/12/16 9:00:00 CDT, Duration: 30 day, Stop date: 02/10/16 9:00:00 CDT Aspirin 81 No Notes: Do Me moria MG Enteric - not crush l Coated 14:00: or chew. [place] Tablet (Same As: Ecotrin) Amlodipine No Notes: Memor ia 7-27 (Same as: l 14:00: Norvasc) Docusate No Notes: Memoria 7-27 (Same as: l 14:00: Colace) (Do Not Crush) Spironolact No Notes: Boy andrés one 7- (Same As: l 14:00: Aldactone) [...] or milk. glimepiride No Notes: Boy andrés 7-27 (Same as: l 14:00: Amaryl) [place] 00 Tradjenta 5 No Tradellaadilsona Brian emoria mg 7-27 5 mg l (Patient's 14:00: (Patient's H ermann own 00 own medicine) medicine), 1 tab, Drug form: MISC, Route: PO, Daily, 01/12/16 9:00:00 CDT, Duration: 30 day, Stop date: 02/10/16 9:00:00 CDT Aspirin 81 No Notes: Do Me moria MG Enteric 7-27 not crush l Coated 14:00: or chew. [place] Tablet 00 (Same As: Ecotrin) Amlodipine No Notes: Memor ia 7-27 (Same as: l 14:00: Norvasc) Docusate No Notes: Memoria 7-27 (Same as: l 14:00: Colace) [place] (Do Not Crush) Spironolact No Notes: Boy andrés one 7-27 (Same As: l 14:00: Aldactone) [...] or milk. glimepiride No Notes: Boy andrés 7-27 (Same as: l 14:00: Amaryl) Tradjenta 5 No Tradellaadilsona Brian emoria mg 7-27 5 mg l [...] ia 7-27 (Same as: l 14:00: Norvasc) [place] 00 Docusate No Notes: Memoria 7-27 (Same as: l 14:00: Colace) [place] (Do Not Crush) Spironolact No Notes: Boy andrés one 7-27 (Same As: l 14:00: Aldactone) Tradjenta No 5 mg, Memoria 7- Route: PO, l 14:00: Drug form: [place] 00 TAB, Daily, Dosing Weight 97.983, kg, Start date: 01/12/16 9:00:00 CDT irbesartan No Notes: Memor ia 7-27 (Same l 14:00: as:Avapro) Furosemide No Notes: Memor ia 20 MG Oral 7-27 (Same as: l Tablet 14:00: Lasix) May nn cause GI upset. Give with food or milk. glimepiride No Notes: Boy andrés 7-27 (Same as: l 14:00: Amaryl) Tradjenta [...] Memoria 7-27 (Same as: l 14:00: Colace) [place] (Do Not Crush) Spironolact No Notes: Boy andrés one 7- (Same As: l 14:00: Aldactone) Tradjenta No 5 mg, Memoria 7- Route: PO, l 14:00: Drug form: [place] 00 TAB, Daily, Dosing Weight 97.983, kg, Start date: 01/12/16 9:00:00 CDT irbesartan No Notes: Memor ia 7-27 (Same l 14:00: as:Avapro) Furosemide No Notes: Memor ia 20 MG Oral - (Same as: l Tablet 14:00: Lasix) May nn cause GI upset. Give with food or milk. glimepiride No Notes: Boy andrés 7- (Same as: l 14:00: Amaryl) Tradjenta 5 [...] Crush) Spironolact No Notes: Boy andrés one - (Same As: l 14:00: Aldactone) Ativan No Notes: Memoria 7-27 (Same as: l 13:54: Ativan) [place] Ativan No Notes: Memoria 7-27 (Same as: l 13:54: Ativan) [place] 00 Ativan No Notes: Memoria 7-27 (Same as: l 13:54: Ativan) [place] 00 Ativan No Notes: Memoria 7-27 (Same as: l 13:54: Ativan) [place] 00 Ativan No Notes: Memoria 7-27 (Same as: l 13:54: Ativan) [place] 00 Ativan No Notes: Memoria 7-27 (Same as: l 13:54: Ativan) [place] 00 Ativan No Notes: Memoria 7-27 (Same as: l 13:54: Ativan) [place] 00 Ativan No Notes: Memoria 7-27 (Same as: l 13:54: Ativan) [place] 00 Ativan No Notes: Memoria 7-27 (Same as: l 13:54: Ativan) [place] 00 Ativan No Notes: Memoria 7-27 (Same as: l 13:54: Ativan) [place] 00 Ativan No Notes: Memoria 7-27 (Same as: l 13:54: Ativan) [place] 00 Ativan No Notes: Memoria 7-27 (Same as: l 13:54: Ativan) [place] 00 Ativan No Notes: Memoria 7-27 (Same as: l 13:54: Ativan) [place] 00 Ativan No Notes: Memoria 7-27 (Same as: l 13:54: Ativan) [place] 00 Ativan No Notes: Memoria 7-27 (Same as: l 13:54: Ativan) [place] 00 Ativan No Notes: Memoria 7-27 (Same as: l 13:54: Ativan) [place] 00 Ativan No Notes: Memoria 7-27 (Same as: l 13:54: Ativan) [place] 00 Ativan No Notes: Memoria 7-27 (Same as: l 13:54: Ativan) [place] 00 Ativan No Notes: Memoria 7-27 (Same as: l 13:54: Ativan) [place] Sodium No 25 mL, Mem[facility] Chloride 7- Route: IV, l 0.9% IV 13:19: Start [place] 00 date: 01/12/16 8:19:00 CDT, Duration: 30 day, Stop date: 02/11/16 8:18:00 CDT, PRN Line Flush BD Normal No Notes: Memori a Saline - (Same as: l Flush 13:19: BD [place] Posiflush) Sodium 2015-0 No 25 mL, [facility] Chloride 01-11 Route: IV, l 0.9% IV 13:19: Start date: 01/12/16 8:19:00 CDT, Duration: 30 day, Stop date: 02/11/16 8:18:00 CDT, PRN Line Flush BD Normal No Notes: Memori a Saline - (Same as: l Flush 13:19: BD [place] Posiflush) Sodium 2015-0 No 25 mL, [facility] Chloride 01-11 Route: IV, l 0.9% IV 13:19: date: 01/12/16 8:19:00 CDT, Duration: 30 day, Stop date: 02/11/16 8:18:00 CDT, PRN Line Flush BD Normal No Notes: Memori a Saline - (Same as: l Flush 13:19: BD [place] 00 Posiflush) Sodium 2015-0 No 25 mL, [facility] Chloride 01-11 Route: IV, l 0.9% IV 13:19: date: 01/12/16 8:19:00 CDT, Duration: 30 day, Stop date: 02/11/16 8:18:00 CDT, PRN Line Flush BD Normal No Notes: Memori a Saline - (Same as: l Flush 13:19: BD Luke [...] Route: IV, l 0.9% IV 13:19: Start Luke 00 date: 01/12/16 8:19:00 CDT, Duration: 30 day, Stop date: 02/11/16 8:18:00 CDT, PRN Line Flush BD Normal 0 No Notes: Memori a Saline 7-27 (Same as: l Flush 13:19: BD [place] Posiflush) Sodium 2015-0 No 25 mL, Memoria [...] Route: IV, l 0.9% IV 13:19: Start Luke 00 date: 01/12/16 8:19:00 CDT, Duration: 30 [...] 7-27 (Same as: l Flush 13:19: BD [place] Posiflush) Sodium 2015-0 No 25 mL, [facility] Chloride 01-11 Route: IV, l 0.9% IV 13:19: Start date: 01/12/16 8:19:00 CDT, Duration: 30 day, Stop date: 02/11/16 8:18:00 CDT, PRN Line Flush BD Normal No Notes: Memori a Saline 7-27 (Same as: l Flush 13:19: BD [place] Posiflush) Sodium 2015-0 No 25 mL, [facility] Chloride - Route: IV, l 0.9% IV 13:19: Start date: 01/12/16 8:19:00 CDT, Duration: 30 day, Stop date: 02/11/16 8:18:00 CDT, PRN Line Flush BD Normal No Notes: Memori a Saline 7-27 (Same as: l Flush 13:19: BD [place] Posiflush) Sodium 2015-0 No 25 mL, [facility] Chloride 01-11 Route: IV, l 0.9% IV 13:19: Start date: 01/12/16 8:19:00 CDT, Duration: 30 day, Stop date: 02/11/16 8:18:00 CDT, PRN Line Flush BD Normal 0 No Notes: Memori a Saline 7-27 (Same as: l Flush 13:19: BD [place] Posiflush) Sodium 2015-0 No 25 mL, [facility] Chloride - Route: IV, l 0.9% IV 13:19: Start date: 01/12/16 8:19:00 CDT, Duration: 30 day, Stop date: 02/11/16 8:18:00 CDT, PRN Line Flush BD Normal No Notes: Memori a Saline 7-27 (Same as: l Flush 13:19: BD [place] Posiflush) Sodium 2015-0 No 25 mL, [facility] Chloride 7- Route: IV, l 0.9% IV 13:19: Start [place] 00 date: 01/12/16 8:19:00 CDT, Duration: 30 day, Stop date: 02/11/16 8:18:00 CDT, PRN Line Flush BD Normal No Notes: Memori a Saline - (Same as: l Flush 13:19: BD [place] Posiflush) Sodium 2015-0 No 25 mL, [facility] Chloride 01-11 Route: IV, l 0.9% IV 13:19: Start date: 01/12/16 8:19:00 CDT, Duration: 30 day, Stop date: 02/11/16 8:18:00 CDT, PRN Line Flush BD Normal No Notes: Memori a Saline - (Same as: l Flush 13:19: BD [place] Posiflush) Sodium 2015-0 No 25 mL, [facility] Chloride 01-11 Route: IV, l 0.9% IV 13:19: date: 01/12/16 8:19:00 CDT, Duration: 30 day, Stop date: 02/11/16 8:18:00 CDT, PRN Line Flush BD Normal No Notes: Memori a Saline - (Same as: l Flush 13:19: BD [place] Posiflush) Sodium 2015-0 No 25 mL, [facility] Chloride 01-11 Route: IV, l 0.9% IV 13:19: date: 01/12/16 8:19:00 CDT, Duration: 30 day, Stop date: 02/11/16 8:18:00 CDT, PRN Line Flush BD Normal No Notes: Memori a Saline - (Same as: l Flush 13:19: BD [place] Posiflush) Sodium 2015-0 No 25 mL, [facility] Chloride 7- Route: IV, l 0.9% IV 13:19: Start date: 01/12/16 8:19:00 CDT, Duration: 30 day, Stop date: 02/11/16 8:18:00 CDT, PRN Line Flush BD Normal No Notes: Memori a Saline 7-27 (Same as: l Flush 13:19: BD [place] 00 Posiflush) Insulin, No Notes: Memoria Aspart, 7-27 Roll in l Human 03:38: palms of [place] 00 hands gently; Do not shake vigorously . (Same as: NovoLOG) "single patient use only" WASTE: F/P - Black; E - Municipal Trash Bin Stable for 28 days at room temperatur e. Expires in days from ____Date Dextrose No 12.5 gm, Memor ia 50% Syringe 7- 25 mL, l 03:38: Route: [place] 00 IVP, Drug Form: INJ, Dosing Weight 97.983, kg, PRN, PRN Blood Glucose Results, Start date: 01/11/16 22:38:00 CDT, Duration: 30 day, Stop date: 02/10/16 22:37:00 CDT Glucagon No 1 mg, Memoria 01-11 Route: IM, l 03:38: Drug form: [place] 00 PDR/INJ, PRN, Dosing Weight 97.983, kg, [...] e. Expires in days from ____Date Dextrose 2015- No 12.5 gm, Memor ia 50% Syringe 7- 25 mL, l 03:38: Route: [place] 00 IVP, Drug Form: INJ, Dosing Weight 97.983, kg, PRN, PRN Blood Glucose Results, Start date: 01/11/16 22:38:00 CDT, Duration: 30 day, Stop date: 02/10/16 22:37:00 CDT Glucagon 2016-0 No 1 mg, Memoria 7-27 Route: IM, l 03:38: Drug form: [place] 00 PDR/INJ, PRN, Dosing Weight 97.983, kg, PRN Blood Glucose Results, Start date: 01/11/16 22:38:00 CDT, Duration: 30 day, Stop date: 02/10/16 22:37:00 CDT Insulin, 2015-0 No Notes: [facility] Aspart, 7-27 Roll in l Human 03:38: palms of [place] 00 hands gently; Do not shake vigorously . (Same as: NovoLOG) "single patient use only" WASTE: F/P - Black; E - Municipal Trash Bin Stable for 28 days at room temperatur e. Expires in days from ____Date Dextrose No 12.5 gm, Memor ia 50% Syringe 7- 25 mL, l 03:38: Route: Luke 00 [...] No 12.5 gm, Memor ia 50% Syringe 7- 25 mL, l 03:38: Route: [place] 00 IVP, Drug Form: INJ, Dosing Weight 97.983, kg, PRN, PRN Blood Glucose Results, Start date: 01/11/16 22:38:00 CDT, Duration: 30 day, Stop date: 02/10/16 22:37:00 CDT Glucagon 2015-0 No 1 mg, Memoria 7-27 Route: IM, l 03:38: Drug form: [place] 00 PDR/INJ, PRN, Dosing Weight 97.983, kg, PRN Blood Glucose Results, Start date: 01/11/16 22:38:00 CDT, Duration: 30 day, Stop date: 02/10/16 22:37:00 CDT Insulin, 2015-0 No Notes: [facility] Aspart, 7-27 Roll in l Human 03:38: palms of [place] 00 hands gently; Do not shake vigorously . (Same as: NovoLOG) "single patient use only" WASTE: F/P - Black; E - Municipal Trash Bin Stable for 28 days at room temperatur e. Expires in days from ____Date Dextrose 2015-0 No 12.5 gm, Memor ia 50% Syringe - 25 mL, l 03:38: Route: [place] 00 IVP, Drug Form: INJ, Dosing Weight [...] Roll in l Human 03:38: palms of [place] 00 hands gently; Do not shake vigorously . (Same as: NovoLOG) "single patient use only" WASTE: F/P - Black; E - Municipal Trash Bin Stable for 28 days at room temperatur e. Expires in days from ____Date Dextrose 2016-0 No 12.5 gm, Memor ia 50% Syringe 7- 25 mL, l 03:38: Route: [place] 00 IVP, Drug Form: INJ, Dosing Weight 97.983, kg, PRN, PRN Blood Glucose Results, Start date: 01/11/16 22:38:00 CDT, Duration: 30 day, Stop date: 02/10/16 22:37:00 CDT Glucagon 2015-0 No 1 mg, [facility] 7-27 Route: IM, l 03:38: Drug form: [place] 00 PDR/INJ, PRN, Dosing Weight 97.983, kg, PRN Blood Glucose Results, Start date: 01/11/16 22:38:00 CDT, Duration: 30 day, Stop date: 02/10/16 22:37:00 CDT Insulin, 2015-0 No Notes: [facility] Aspart, 7- Roll in l Human 03:38: palms of [place] 00 hands gently; Do not shake vigorously . (Same as: NovoLOG) "single patient use only" WASTE: F/P - Black; E - Municipal Trash [facility] Expires in days from ____Date Dextrose 2015-0 No 12.5 gm, Memor ia 50% Syringe 7- 25 mL, l 03:38: Route: [place] 00 IVP, Drug Form: INJ, Dosing Weight 97.983, kg, PRN, PRN Blood Glucose Results, Start date: 01/11/16 22:38:00 CDT, Duration: 30 day, Stop date: 02/10/16 22:37:00 CDT Glucagon 2015-0 No 1 mg, [facility] 7-27 Route: IM, l 03:38: Drug form: [place] 00 PDR/INJ, PRN, Dosing Weight 97.983, kg, PRN Blood Glucose Results, Start date: 01/11/16 22:38:00 CDT, Duration: 30 day, Stop date: 02/10/16 22:37:00 CDT Insulin, 2016-0 No Notes: [facility] Aspart, 7-27 Roll in l Human 03:38: palms of [place] 00 hands gently; Do not shake vigorously [...] Roll in l Human 03:38: palms of [place] 00 hands gently; Do not shake vigorously [...] Syringe 7-27 25 mL, l 03:38: Route: [place] 00 IVP, Drug Form: INJ, Dosing Weight 97.983, kg, PRN, PRN Blood Glucose Results, Start date: 01/11/16 22:38:00 CDT, Duration: 30 day, Stop date: 02/10/16 22:37:00 CDT Glucagon No 1 mg, [facility] 7-27 Route: IM, l 03:38: Drug form: [place] 00 PDR/INJ, PRN, Dosing Weight 97.983, kg, [...] Syringe 01-11 25 mL, l 03:38: Route: [place] 00 IVP, Drug Form: INJ, Dosing Weight [...] Roll in l Human 03:38: palms of [place] 00 hands gently; Do not shake vigorously . (Same as: NovoLOG) "single patient use only" WASTE: F/P - Black; E - Municipal Trash Bin Stable for 28 days at room temperatur e. Expires in days from ____Date Dextrose 2015-0 No 12.5 gm, Mem[facility] ia 50% Syringe 7-27 25 mL, l 03:38: Route: [place] 00 IVP, Drug Form: INJ, Dosing Weight 97.983, kg, PRN, PRN Blood Glucose Results, Start date: 01/11/16 22:38:00 CDT, Duration: 30 day, Stop date: 02/10/16 22:37:00 CDT Glucagon 2015-0 No 1 mg, [facility] 7-27 Route: IM, l 03:38: Drug form: [place] 00 PDR/INJ, PRN, Dosing Weight 97.983, kg, PRN Blood Glucose Results, Start date: 01/11/16 22:38:00 CDT, Duration: 30 day, Stop date: 02/10/16 22:37:00 CDT Insulin, 2015-0 No Notes: [facility] Aspart, 7-27 Roll in l Human 03:38: palms of [place] 00 hands gently; Do not shake vigorously [...] 7-27 Route: IM, l 03:38: Drug form: [place] 00 PDR/INJ, PRN, Dosing Weight 97.983, kg, PRN Blood Glucose Results, Start date: 01/11/16 22:38:00 CDT, Duration: 30 day, Stop date: 02/10/16 22:37:00 CDT Insulin, 2016-0 No Notes: [facility] Aspart, 7-27 Roll in l Human 03:38: palms of [place] 00 hands gently; Do not shake vigorously . (Same as: NovoLOG) "single patient use only" WASTE: F/P - Black; E - Municipal Trash Bin Stable for 28 days at room temperatur e. Expires in days from ____Date Dextrose 2016-0 No 12.5 gm, Mem[facility] 50% Syringe 7-27 25 mL, l 03:38: Route: [place] 00 IVP, Drug Form: INJ, Dosing Weight [...] Roll in l Human 03:38: palms of [place] 00 hands gently; Do not shake vigorously [...] 7-27 Route: IM, l 03:38: Drug form: [place] 00 PDR/INJ, PRN, Dosing Weight 97.983, kg, PRN Blood Glucose Results, Start date: 01/11/16 22:38:00 CDT, Duration: 30 day, Stop date: 02/10/16 22:37:00 CDT Insulin, 0 No Notes: [facility] Aspart, 7-27 Roll in l Human 03:38: palms of [place] 00 hands gently; Do not shake vigorously . (Same as: NovoLOG) "single patient use only" WASTE: F/P - Black; E - Municipal Trash Bin Stable for 28 days at room temperatur e. Expires in days from ____Date Dextrose 0 No 12.5 gm, [facility] ia 50% Syringe 7-27 25 mL, l 03:38: Route: [place] 00 IVP, Drug Form: INJ, Dosing Weight 97.983, kg, PRN, PRN Blood Glucose Results, Start date: 01/11/16 22:38:00 CDT, Duration: 30 day, Stop date: 02/10/16 22:37:00 CDT Glucagon No 1 mg, Memoria 7-27 Route: IM, l 03:38: Drug form: [place] 00 PDR/INJ, PRN, Dosing Weight 97.983, kg, [...] Syringe 7-27 25 mL, l 03:38: Route: [place] 00 IVP, Drug Form: INJ, Dosing Weight [...] Roll in l Human 03:38: [place] of [place] 00 hands gently; Do not shake vigorously . (Same as: NovoLOG) "single patient use only" WASTE: F/P - Black; E - Municipal Trash Bin Stable for 28 days at room temperatur e. Expires in days from ____Date Dextrose No 12.5 gm, Memor ia 50% Syringe 01-11 25 mL, l 03:38: Route: [place] 00 IVP, Drug Form: INJ, Dosing Weight [...] Memoria 7-27 (Same As: l 02:38: Lipitor) [place] Lipitor No Notes: Memoria 7-27 (Same As: l 02:38: Lipitor) [place] 00 Lipitor No Notes: Memoria 7-27 (Same As: l 02:38: Lipitor) Luke Lipitor No Notes: Memoria 7-27 (Same As: l 02:38: Lipitor) [place] 00 Lipitor No Notes: Memoria 7-27 (Same As: l 02:38: Lipitor) [place] 00 Lipitor No Notes: Memoria 7-27 (Same As: l 02:38: Lipitor) [place] 00 Lipitor No Notes: Memoria 7-27 (Same As: l 02:38: Lipitor) Luke 00 Lipitor No Notes: Memoria 7-27 (Same As: l 02:38: Lipitor) [place] 00 Lipitor No Notes: Memoria 7-27 (Same As: l 02:38: Lipitor) Luke Lipitor No Notes: Memoria 7-27 (Same As: l 02:38: Lipitor) [place] 00 Lipitor No Notes: Memoria 7-27 (Same As: l 02:38: Lipitor) Luke 00 Lipitor No Notes: Memoria 7-27 (Same As: l 02:38: Lipitor) [place] 00 Lipitor No Notes: Memoria 7-27 (Same As: l 02:38: Lipitor) [place] 00 Lipitor No Notes: Memoria 7-27 (Same As: l 02:38: Lipitor) [place] 00 Lipitor No Notes: Memoria 7-27 (Same As: l 02:38: Lipitor) [place] 00 Lipitor No Notes: Memoria 7-27 (Same As: l 02:38: Lipitor) [place] 00 Lipitor No Notes: Memoria 7-27 (Same As: l 02:38: Lipitor) [place] 00 Lipitor No Notes: Memoria 7-27 (Same As: l 02:38: Lipitor) [place] No Notes: Memoria 7-27 Same as l 02:00: [place] Luke 00 [place] PEN Do not hold insulin without contacting prescriber "single patient use only" WASTE: F/P - Black; E - Municipal Trash Bin Stable for 28 days at room temperatur e. Expires in days from ____Date carvedilol No Notes: Memor ia 7-27 Give with l 02:00: food. Luke (Same As: Coreg) [facility] No Route: PO, Boy andrés 7-27 Drug form: l 02:00: TAB, [place] 00 Bedtime, Dosing Weight 97.983, kg, Start [...] l 02:00: food. Luke (Same As: Coreg) [facility] No Route: PO, Boy andrés 7-27 Drug form: l 02:00: TAB, [place] 00 Bedtime, Dosing Weight 97.983, kg, Start [...] l 02:00: food. Luke (Same As: Coreg) [facility] No Route: PO, Boy andrés 7-27 Drug form: l 02:00: TAB, [place] 00 Bedtime, Dosing Weight 97.983, kg, Start date: 01/11/16 21:00:00 CDT, Duration: 30 day, Stop date: 02/09/16 21:00:00 CDT Lantus No Notes: Memoria 7-27 Same as l 02:00: Lantus [place] 00 Solostar PEN Do not hold insulin without contacting prescriber "single patient use only" WASTE: F/P - Black; E - Municipal Trash Bin Stable for 28 days at room temperatur e. Expires in days from ____Date carvedilol No Notes: Memor ia 7-27 Give with l 02:00: food. Luke 00 (Same As: Coreg) [facility] No Route: PO, Boy andrés 7-27 Drug form: l 02:00: TAB, Luke [...] Coreg) [facility] No Route: PO, Boy andrés 7-27 Drug form: l 02:00: TAB, [place] 00 Bedtime, Dosing Weight 97.983, kg, Start date: 01/11/16 21:00:00 CDT, Duration: 30 day, Stop date: 02/09/16 21:00:00 CDT Lantus No Notes: Memoria 7-27 Same as l 02:00: Lantus [place] 00 Solostar PEN Do not hold insulin without contacting prescriber "single patient use only" WASTE: F/P - Black; E - Municipal Trash Bin Stable for 28 days at room temperatur e. Expires in days from ____Date carvedilol No Notes: Memor ia 7-27 Give with l 02:00: food. Luke 00 (Same As: Coreg) [facility] No Route: PO, Boy andrés 7-27 Drug form: l 02:00: TAB, Luke [...] l 02:00: food. Luke (Same As: Coreg) [facility] No Route: PO, Boy andrés 7-27 Drug form: l 02:00: TAB, Luke 00 Bedtime, Dosing Weight 97.983, kg, Start date: 01/11/16 21:00:00 CDT, Duration: 30 day, Stop date: 02/09/16 21:00:00 CDT Lantus No Notes: Memoria 7-27 Same as l 02:00: Lantus [place] 00 Solostar PEN Do not hold insulin without contacting prescriber "single patient use only" WASTE: F/P - Black; E - Municipal Trash Bin Stable for 28 days at room temperatur e. Expires in days from ____Date carvedilol No Notes: Memor ia 7-27 Give with l 02:00: food. [place] (Same As: Coreg) [facility] No Route: PO, Boy andrés 7-27 Drug form: l 02:00: TAB, Luke [...] Coreg) [facility] No Route: PO, Boy andrés 7-27 Drug form: l 02:00: TAB, [place] 00 Bedtime, Dosing Weight 97.983, kg, Start [...] Coreg) [facility] No Route: PO, Boy andrés 7-27 Drug form: l 02:00: TAB, Luke 00 Bedtime, Dosing Weight 97.983, kg, Start date: 01/11/16 21:00:00 CDT, Duration: 30 day, Stop date: 02/09/16 21:00:00 CDT Lantus No Notes: Memoria 7-27 Same as l 02:00: Lantus [place] 00 Solostar PEN Do not hold insulin without contacting prescriber "single patient use only" WASTE: F/P - Black; E - Municipal Trash Bin Stable for 28 days at room temperatur e. Expires in days from ____Date carvedilol No Notes: Memor ia 7-27 Give with l 02:00: food. Luke 00 (Same As: Coreg) [facility] No Route: PO, Boy andrés 7-27 Drug form: l 02:00: TAB, [place] 00 Bedtime, Dosing Weight 97.983, kg, Start [...] ia 7- Give with l 02:00: food. Luke (Same As: Coreg) [facility] No Route: PO, Boy andrés 7-27 Drug form: l 02:00: TAB, [place] 00 Bedtime, Dosing Weight 97.983, kg, Start date: 01/11/16 21:00:00 CDT, Duration: 30 day, Stop date: 02/09/16 21:00:00 CDT Lantus No Notes: Memoria 7 Same as l 02:00: Lantus [place] 00 Solostar PEN Do not hold insulin without contacting prescriber "single patient use only" WASTE: F/P - Black; E - Municipal Trash Bin Stable for 28 days at room temperatur e. Expires in days from ____Date carvedilol No Notes: Memor ia 7-27 Give with l 02:00: food. Luke 00 (Same As: Coreg) [facility] No Route: PO, Boy andrés 7-27 Drug form: l 02:00: TAB, Luke 00 Bedtime, Dosing Weight 97.983, kg, Start date: 01/11/16 21:00:00 CDT, Duration: 30 day, Stop date: 02/09/16 21:00:00 CDT Lantus No Notes: Memoria 7-27 Same as l 02:00: Lantus [place] 00 Solostar PEN Do not hold insulin without contacting prescriber "single patient use only" WASTE: F/P - Black; E - Municipal Trash Bin Stable for 28 days at room temperatur e. Expires in days from ____Date carvedilol No Notes: Memor ia 7-27 Give with l 02:00: food. [place] (Same As: Coreg) [facility] No Route: PO, Boy andrés 7-27 Drug form: l 02:00: TAB, [place] 00 Bedtime, Dosing Weight 97.983, kg, Start date: 01/11/16 21:00:00 CDT, Duration: 30 day, Stop date: 02/09/16 21:00:00 CDT Lantus No Notes: Memoria 7-27 Same as l 02:00: Lantus [place] 00 Solostar PEN Do not hold insulin without contacting prescriber "single patient use only" WASTE: F/P - Black; E - Municipal Trash Bin Stable for 28 days at room temperatur e. Expires in days from ____Date carvedilol No Notes: Memor ia 7-27 Give with l 02:00: food. [place] 00 (Same As: Coreg) [facility] No Route: PO, Boy andrés 7-27 Drug form: l 02:00: TAB, [place] 00 Bedtime, Dosing Weight 97.983, kg, Start date: 01/11/16 21:00:00 CDT, Duration: 30 day, Stop date: 02/09/16 21:00:00 CDT Lantus No Notes: Memoria 7-27 Same as l 02:00: Lantus [place] 00 Solostar PEN Do not hold insulin without contacting prescriber "single patient use only" WASTE: F/P - Black; E - Municipal Trash Bin Stable for 28 days at room temperatur e. Expires in days from ____Date carvedilol No Notes: Memor ia 7-27 Give with l 02:00: food. [place] 00 (Same As: Coreg) [facility] No Route: PO, Boy andrés 7-27 Drug form: l 02:00: TAB, Luke 00 Bedtime, Dosing Weight 97.983, kg, Start date: 01/11/16 21:00:00 CDT, Duration: 30 day, Stop date: 02/09/16 21:00:00 CDT Lantus No Notes: Memoria 7- Same as l 02:00: Lantus [place] 00 Solostar PEN Do not hold insulin without contacting prescriber "single patient use only" WASTE: F/P - Black; E - Municipal Trash Bin Stable for 28 days at room temperatur e. Expires in days from ____Date carvedwvol No Notes: Memor ia 7-27 Give with l 02:00: food. Luke 00 (Same As: Coreg) [facility] No Route: PO, Boy andrés 7-27 Drug form: l 02:00: TAB, Luke 00 Bedtime, Dosing Weight 97.983, kg, Start date: 01/11/16 21:00:00 CDT, Duration: 30 day, Stop date: 02/09/16 21:00:00 CDT Lantus No Notes: Memoria 727 Same as l 02:00: Lantus [place] 00 Solostar PEN Do not hold insulin without contacting prescriber "single patient use only" WASTE: F/P - Black; E - Municipal Trash Bin Stable for 28 days at room temperatur e. Expires in days from ____Date carvedilol No Notes: Memor ia 01-11 Give with l 02:00: food. Luke (Same As: Coreg) [facility] No Route: PO, Boy andrés 7- Drug form: l 02:00: TAB, Luke 00 Bedtime, Dosing Weight 97.983, kg, Start date: 01/11/16 21:00:00 CDT, Duration: 30 day, Stop date: 02/09/16 21:00:00 CDT Lantus No Notes: Memoria 01-11 Same as l 02:00: Lantus [place] Solostar PEN Do not hold insulin without contacting prescriber "single patient use only" WASTE: F/P - Black; E - Municipal Trash Bin Stable for 28 days at room temperatur e. Expires in days from ____Date carvedilol No Notes: Memor ia 01-11 Give with l 02:00: food. [place] (Same As: Coreg) [facility] No Route: PO, Boy andrés 7- Drug form: l 02:00: TAB, Luke 00 [...] 10 MG Oral hen. (Same Tablet as: Clarence [Clarence 325/10) 10/325] Enoxaparin No Notes: Memor ia 01-10 (Same as: l 23:00: Lovenox) [place] Acetaminoph No Notes: Do M emoria en 325 MG / - not exceed l Hydrocodone 23:00: 4gm/day of Luke Bitartrate 00 acetaminop 10 MG Oral hen. (Same Tablet as: Clarence [Clarence 325/10) 10/325] Enoxaparin No Notes: Memor ia 7- (Same as: l 23:00: Lovenox) Luke Acetaminoph No Notes: Do M emoria en 325 MG / 01-10 not exceed l Hydrocodone 23:00: 4gm/day of [place] Bitartrate 00 acetaminop 10 MG Oral hen. (Same Tablet as: Clarence [Clarence 325/10) 10/325] Enoxaparin No Notes: Memor ia 7- (Same as: l 23:00: Lovenox) Luke Acetaminoph No Notes: Do M emoria en 325 MG / 01-10 not exceed l Hydrocodone 23:00: 4gm/day of [place] Bitartrate 00 acetaminop 10 MG Oral hen. (Same Tablet as: Clarence [Clarence 325/10) 10/325] Enoxaparin No Notes: Memor ia 7- (Same as: l 23:00: Lovenox) [place] Acetaminoph No Notes: Do M emoria en 325 MG / 01-10 not exceed l Hydrocodone 23:00: 4gm/day of Luke Bitartrate 00 acetaminop 10 MG Oral hen. (Same Tablet as: Clarence [Clarence 325/10) 10/325] Enoxaparin No Notes: Memor ia 7- (Same as: l 23:00: Lovenox) [place] Acetaminoph No Notes: Do M emoria en 325 MG / - not exceed l Hydrocodone 23:00: 4gm/day of [place] Bitartrate 00 acetaminop 10 MG Oral hen. (Same Tablet as: Clarence [Clarence 325/10) 10/325] Enoxaparin No Notes: Memor ia 7- (Same as: l 23:00: Lovenox) Luke Acetaminoph No Notes: Do M emoria en 325 MG / - not exceed l Hydrocodone 23:00: 4gm/day of [place] Bitartrate 00 acetaminop 10 MG Oral hen. (Same Tablet as: Clarence [Clarence 325/10) 10/325] Enoxaparin No Notes: Memor ia 7- (Same as: l 23:00: Lovenox) [place] Acetaminoph No Notes: Do M emoria en 325 MG / 01-10 not exceed l Hydrocodone 23:00: 4gm/day of [place] Bitartrate 00 acetaminop 10 MG Oral hen. (Same Tablet as: Clarence [Clarence 325/10) 10/325] Enoxaparin No Notes: Memor ia 7- (Same as: l 23:00: Lovenox) Luke Acetaminoph No Notes: Do M emoria en 325 MG / 01-10 not exceed l Hydrocodone 23:00: 4gm/day of [place] Bitartrate 00 acetaminop 10 MG Oral hen. (Same Tablet as: Clarence [Clarence 325/10) 10/325] Enoxaparin No Notes: Memor ia 7- (Same as: l 23:00: Lovenox) Luke Acetaminoph No Notes: Do M emoria en 325 MG / 01-10 not exceed l Hydrocodone 23:00: 4gm/day of [place] Bitartrate 00 acetaminop 10 MG Oral hen. (Same Tablet as: Clarence [Clarence 325/10) 10/325] Enoxaparin No Notes: Memor ia 7- (Same as: l 23:00: Lovenox) Luke Acetaminoph No Notes: Do M emoria en 325 MG / - not exceed l Hydrocodone 23:00: 4gm/day of [place] Bitartrate 00 acetaminop 10 MG Oral hen. (Same Tablet as: Clarence [Clarence 325/10) 10/325] Enoxaparin No Notes: Memor ia 7- (Same as: l 23:00: Lovenox) Luke Acetaminoph No Notes: Do M emoria en 325 MG / - not exceed l Hydrocodone 23:00: 4gm/day of Luke Bitartrate 00 acetaminop 10 MG Oral hen. (Same Tablet as: Clarence [Clarence 325/10) 10/325] Enoxaparin No Notes: Memor ia 7- (Same as: l 23:00: Lovenox) [place] Acetaminoph No Notes: Do M emoria en 325 MG / 01-10 not exceed l Hydrocodone 23:00: 4gm/day of Luke Bitartrate 00 acetaminop 10 MG Oral hen. (Same Tablet as: Clarence [Clarence 325/10) 10/325] Enoxaparin No Notes: Memor ia 7- (Same as: l 23:00: Lovenox) [place] Acetaminoph No Notes: Do M emoria en 325 MG / 01-10 not exceed l Hydrocodone 23:00: 4gm/day of [place] Bitartrate 00 acetaminop 10 MG Oral hen. (Same Tablet as: Clarence [Clarence 325/10) 10/325] Enoxaparin No Notes: Memor ia 7- (Same as: l 23:00: Lovenox) Luke Acetaminoph No Notes: Do M emoria en 325 MG / 01-10 not exceed l Hydrocodone 23:00: 4gm/day of Luke Bitartrate 00 acetaminop 10 MG Oral hen. (Same Tablet as: Clarence [Clarence 325/10) 10/325] Enoxaparin No Notes: Memor ia 7- (Same as: l 23:00: Lovenox) [place] Acetaminoph No Notes: Do M emoria en 325 MG / - not exceed l Hydrocodone 23:00: 4gm/day of [place] Bitartrate 00 acetaminop 10 MG Oral hen. (Same Tablet as: Clarence [Clarence 325/10) 10/325] Enoxaparin No Notes: Memor ia 7- (Same as: l 23:00: Lovenox) Luke Acetaminoph No Notes: Do M emoria en 325 MG / 7-26 not exceed l Hydrocodone 23:00: 4gm/day of [place] Bitartrate 00 acetaminop 10 MG Oral hen. (Same Tablet as: Clarence [Clarence 325/10) 10/325] Enoxaparin No Notes: Memor ia 7-26 (Same as: l 23:00: Lovenox) [place] Acetaminoph No Notes: Do M emoria en 325 MG / 7-26 not exceed l Hydrocodone 23:00: 4gm/day of Luke Bitartrate 00 acetaminop 10 MG Oral hen. (Same Tablet as: Clarence [Clarence 325/10) 10325] Enoxaparin No Notes: Memor ia 7-26 (Same as: l 23:00: Lovenox) Luke Acetaminoph No Notes: Do M emoria en 325 MG / 7- not exceed l Hydrocodone 23:00: 4gm/day of Luke Bitartrate 00 acetaminop 10 MG Oral hen. (Same Tablet as: Clarence [Clarence 325/10) 10/325] Enoxaparin No Notes: Memor ia [...] Notes: Memoria 7-26 (Same l 22:53: as:MORPhin [place] 00 e Sulfate) Ondansetron No Notes: Boy andrés 7-26 (Same as: l 22:53: Zofran) Luke [...] 0.9% 7-26 (Same as: l 22:53: BD [place] Posiflush) Morphine No Notes: Memoria 7-26 (Same l 22:53: as:MORPhin [place] 00 e Sulfate) Ondansetron No Notes: Boy andrés 7-26 (Same as: l 22:53: Zofran) [place] 00 MEDICATION WASTE Product Size: 4 mg Product Wasted: ___ mg Acetaminoph No 100.4 F, M emoria en 01-10 Start l 22:53: date: [place] 00 01/11/16 17:53:00 CDT, Duration: 30 day, Stop date: 02/10/16 17:52:00 CDT Sodium No 1,000 mL, Memori a Chloride 7- Rate: 45 l 0.154 22:53: ml/hr, [place] MEQ/ML 00 Infuse Injectable over: 22.2 Solution hr, Route: IV, Dosing Weight 97.983 kg, Total Volume: 1,000, Start date: 01/11/16 17:53:00 CDT, Duration: 30 day, Stop date: 02/10/16 17:52:00 CDT Saline No Notes: Memoria Flush 0.9% 7-26 (Same as: l 22:53: BD [place] 00 Posiflush) Morphine No Notes: Memoria 7-26 (Same l 22:53: as:MORPhin [place] 00 e Sulfate) Ondansetron No Notes: Boy andrés 7-26 (Same as: l 22:53: Zofran) [place] 00 MEDICATION WASTE Product Size: 4 mg Product Wasted: ___ mg Acetaminoph No 100.4 F, M emoria en 01-10 Start l 22:53: date: [place] 01/11/16 17:53:00 CDT, Duration: 30 day, Stop date: 02/10/16 17:52:00 CDT Sodium No 1,000 mL, Memori a Chloride 01-10 Rate: 45 l 0.154 22:53: ml/hr, [place] MEQ/ML 00 Infuse Injectable over: 22.2 Solution hr, Route: IV, Dosing Weight 97.983 kg, Total Volume: 1,000, Start date: 01/11/16 17:53:00 CDT, Duration: 30 day, Stop date: 02/10/16 17:52:00 CDT Saline No Notes: Memoria Flush 0.9% 7-26 (Same as: l 22:53: BD Luke 00 Posiflush) Morphine No Notes: Memoria 7-26 (Same l 22:53: as:MORPhin [place] 00 e Sulfate) Ondansetron No Notes: Boy andrés 7-26 (Same as: l 22:53: Zofran) [place] 00 MEDICATION WASTE Product Size: 4 mg Product Wasted: ___ mg Acetaminoph No 100.4 F, M emoria en 01-10 Start l 22:53: date: 01/11/16 17:53:00 CDT, Duration: 30 day, Stop date: 02/10/16 17:52:00 CDT Sodium No 1,000 mL, Memori a Chloride - Rate: 45 l 0.154 22:53: ml/hr, [place] MEQ/ML 00 Infuse Injectable over: 22.2 Solution hr, Route: IV, Dosing Weight 97.983 kg, Total Volume: 1,000, Start date: 01/11/16 17:53:00 CDT, Duration: 30 day, Stop date: 02/10/16 17:52:00 CDT Saline No Notes: Memoria Flush 0.9% 7-26 (Same as: l 22:53: BD [place] Posiflush) Morphine No Notes: Memoria 7-26 (Same l 22:53: as:MORPhin [place] 00 e Sulfate) Ondansetron No Notes: Boy andrés - (Same as: l 22:53: Zofran) MEDICATION WASTE Product Size: 4 mg Product Wasted: ___ mg Acetaminoph No 100.4 Brian Quiles en 01-10 Start l 22:53: date: 01/11/16 17:53:00 CDT, Duration: 30 day, Stop date: 02/10/16 17:52:00 CDT Sodium No 1,000 mL, Memori a Chloride - Rate: 45 l 0.154 22:53: ml/hr, [place] MEQ/ML 00 Infuse Injectable over: 22.2 Solution hr, Route: IV, Dosing Weight 97.983 kg, Total Volume: 1,000, Start date: 01/11/16 17:53:00 CDT, Duration: 30 day, Stop date: 02/10/16 17:52:00 CDT Saline No Notes: Memoria Flush 0.9% 7-26 (Same as: l 22:53: BD Luke 00 Posiflush) Morphine No Notes: Memoria 7-26 (Same l 22:53: as:MORPhin [place] 00 e Sulfate) Ondansetron No Notes: Boy andrés 7-26 (Same as: l 22:53: Zofran) Luke [...] Notes: Memoria 7-26 (Same l 22:53: as:MORPhin [place] 00 e Sulfate) Ondansetron No Notes: Boy andrés -26 (Same as: l 22:53: Zofran) Luke 00 MEDICATION WASTE Product Size: 4 mg Product Wasted: ___ mg Acetaminoph No 100.4 FBrian en 01-10 Start l 22:53: date: 01/11/16 17:53:00 CDT, Duration: 30 day, Stop date: 02/10/16 17:52:00 CDT Sodium 0 No 1,000 mL, Memori a Chloride 7- [...] e Sulfate) Ondansetron No Notes: Boy andrés 7-26 (Same as: l 22:53: Zofran) [place] 00 MEDICATION WASTE Product Size: 4 mg [...] Notes: Memoria 7-26 (Same l 22:53: as:MORPhin [place] 00 e Sulfate) Ondansetron No Notes: Boy andrés 7-26 (Same as: l 22:53: Zofran) [place] 00 MEDICATION WASTE Product Size: 4 mg Product Wasted: ___ mg Acetaminoph No 100.4 F, Brian emoroba en 01-10 Start l 22:53: date: Luke 00 01/11/16 17:53:00 CDT, Duration: 30 day, Stop date: 02/10/16 17:52:00 CDT Sodium No 1,000 mL, Memori a Chloride - Rate: 45 l 0.154 22:53: ml/hr, [place] MEQ/ML 00 Infuse Injectable over: 22.2 Solution hr, Route: IV, Dosing Weight 97.983 kg, Total Volume: 1,000, Start date: 01/11/16 17:53:00 CDT, Duration: 30 day, Stop date: 02/10/16 17:52:00 CDT Saline No Notes: Memoria Flush 0.9% 7-26 (Same as: l 22:53: BD [place] 00 Posiflush) Morphine No Notes: Memoria 7-26 (Same l 22:53: as:MORPhin [place] 00 e Sulfate) Ondansetron No Notes: Boy andrés 01-10 (Same as: l 22:53: Zofran) Luke 00 MEDICATION WASTE Product Size: 4 mg Product Wasted: ___ mg Acetaminoph No 100.4 F, M emoria en 01-10 Start l 22:53: date: Luke 01/11/16 17:53:00 CDT, Duration: 30 day, Stop date: 02/10/16 17:52:00 CDT Sodium No 1,000 mL, Memori a Chloride 01-10 Rate: 45 l 0.154 22:53: ml/hr, [place] MEQ/ML 00 Infuse Injectable over: 22.2 Solution hr, Route: IV, Dosing Weight 97.983 kg, Total Volume: 1,000, Start date: 01/11/16 17:53:00 CDT, Duration: 30 day, Stop date: 02/10/16 17:52:00 CDT Saline No Notes: Memoria Flush 0.9% 7-26 (Same as: l 22:53: BD Luke 00 Posiflush) Morphine No Notes: Memoria 7-26 (Same l 22:53: as:MORPhin Luke 00 e Sulfate) Ondansetron No Notes: Boy andrés -26 (Same as: l 22:53: Zofran) [place] 00 MEDICATION WASTE Product Size: 4 mg Product Wasted: ___ mg Acetaminoph No 100.4 F, M emoria en 01-10 Start l 22:53: date: 01/11/16 17:53:00 CDT, Duration: 30 day, Stop date: 02/10/16 17:52:00 CDT Sodium No 1,000 mL, Memori a Chloride 01-10 Rate: 45 l 0.154 22:53: ml/hr, [place] MEQ/ML 00 Infuse Injectable over: 22.2 Solution hr, Route: IV, Dosing Weight 97.983 kg, Total Volume: 1,000, Start date: 01/11/16 17:53:00 CDT, Duration: 30 day, Stop date: 02/10/16 17:52:00 CDT Saline No Notes: Memoria Flush 0.9% 7-26 (Same as: l 22:53: BD [place] 00 Posiflush) Morphine No Notes: Memoria 7-26 (Same l 22:53: as:MORPhin Luke 00 e Sulfate) Ondansetron No Notes: Boy andrés 01-10 (Same as: l 22:53: Zofran) MEDICATION [...] 0.9% 7-26 (Same as: l 22:53: BD [place] 00 Posiflush) Morphine No Notes: Memoria 7-26 (Same l 22:53: as:MORPhin [place] 00 e Sulfate) Ondansetron No Notes: Boy andrés 7-26 (Same as: l 22:53: Zofran) Luke 00 MEDICATION WASTE Product Size: 4 mg Product Wasted: ___ mg Acetaminoph No 100.4 F, Brian carmona en 01-10 Start l 22:53: date: 01/11/16 17:53:00 CDT, Duration: 30 day, Stop date: 02/10/16 17:52:00 CDT Sodium 2015- No 1,000 mL, Memori a Chloride 7- Rate: 45 l 0.154 22:53: ml/hr, [place] MEQ/ML 00 Infuse Injectable over: 22.2 Solution hr, Route: IV, Dosing Weight 97.983 kg, Total Volume: 1,000, Start date: 01/11/16 17:53:00 CDT, Duration: 30 day, Stop date: 02/10/16 17:52:00 CDT Saline No Notes: Memoria Flush 0.9% - (Same as: l 22:53: BD Luke 00 Posiflush) Morphine No Notes: Memoria 7-26 (Same l 22:53: as:MORPhin e Sulfate) Ondansetron No Notes: Boy andrés 7-26 (Same as: l 22:53: Zofran) Luke 00 MEDICATION WASTE Product Size: 4 mg Product Wasted: ___ mg Acetaminoph No 100.4 FBrian en 01-10 Start l 22:53: date: 01/11/16 [...] 0.9% 7-26 (Same as: l 22:53: BD [place] 00 Posiflush) Morphine No Notes: Memoria 7-26 (Same l 22:53: as:MORPhin [place] 00 e Sulfate) Ondansetron No Notes: Boy andrés 7-26 (Same as: l 22:53: Zofran) [place] 00 MEDICATION WASTE Product Size: 4 mg Product Wasted: ___ mg Acetaminoph No 100.4 F, Brian carmona en 01-10 Start l 22:53: date: 01/11/16 17:53:00 CDT, Duration: 30 day, Stop date: 02/10/16 17:52:00 CDT Sodium No 1,000 mL, Memori a Chloride - Rate: 45 l 0.154 22:53: ml/hr, [place] MEQ/ML 00 Infuse Injectable over: 22.2 Solution hr, Route: IV, Dosing Weight 97.983 kg, Total Volume: 1,000, Start date: 01/11/16 17:53:00 CDT, Duration: 30 day, Stop date: 02/10/16 17:52:00 CDT Saline No Notes: Memoria Flush 0.9% 7-26 (Same as: l 22:53: BD [place] 00 Posiflush) Morphine No Notes: Memoria 7-26 (Same l 22:53: as:MORPhin [place] 00 e Sulfate) Ondansetron No Notes: Boy andrés 7-26 (Same as: l 22:53: Zofran) Luke 00 MEDICATION WASTE Product Size: 4 mg Product Wasted: ___ mg Acetaminoph No 100.4 F, Brian carmona en 01-10 Start l 22:53: date: 01/11/16 17:53:00 CDT, Duration: 30 day, Stop date: 02/10/16 17:52:00 CDT Sodium No 1,000 mL, Memori a Chloride - Rate: 45 l 0.154 22:53: ml/hr, [place] MEQ/ML 00 Infuse Injectable over: 22.2 Solution hr, Route: IV, Dosing Weight 97.983 kg, Total Volume: 1,000, Start date: 01/11/16 17:53:00 CDT, Duration: 30 day, Stop date: 02/10/16 17:52:00 CDT Saline No Notes: Memoria Flush 0.9% 7-26 (Same as: l 22:53: BD Luke 00 Posiflush) Morphine No Notes: Memoria 7-26 (Same l 22:53: as:MORPhin [place] 00 e Sulfate) Ondansetron No Notes: Boy andrés - (Same as: l 22:53: Zofran) [place] 00 MEDICATION WASTE Product Size: 4 mg Product Wasted: ___ mg Acetaminoph No 100.4 F, M emoria en 01-10 Start l 22:53: date: [place] 00 01/11/16 17:53:00 CDT, Duration: 30 day, [...] 0.9% 7-26 (Same as: l 22:53: BD [place] 00 Posiflush) Morphine No Notes: Memoria 7-26 (Same l 22:53: as:MORPhin [place] 00 e Sulfate) Ondansetron No Notes: Boy andrés 7-26 (Same as: l 22:53: Zofran) Luke 00 MEDICATION WASTE Product Size: 4 mg Product Wasted: ___ mg Acetaminoph No 100.4 F, M emoria en 01-10 Start l 22:53: date: [place] 00 07/26/16 17:53:00 CDT, Duration: 30 day, Stop date: 02/10/16 17:52:00 CDT Sodium No 1,000 mL, Memori a Chloride - Rate: 45 l 0.154 22:53: ml/hr, [place] MEQ/ML 00 Infuse Injectable over: 22.2 Solution hr, Route: IV, Dosing Weight 97.983 kg, Total Volume: 1,000, Start date: 01/11/16 17:53:00 CDT, Duration: 30 day, Stop date: 02/10/16 17:52:00 CDT Sodium No 1,000 mL, Memori a Chloride - Rate: 45 l 0.154 22:53: ml/hr, [place] MEQ/ML 00 Infuse Injectable over: 22.2 Solution hr, Route: IV, Dosing Weight 97.983 kg, Total Volume: 1,000, Start date: 01/11/16 17:53:00 CDT, Duration: 30 day, Stop date: 02/10/16 17:52:00 CDT Saline No Notes: Memoria Flush 0.9% 01-10 (Same as: l 22:53: BD Posiflush) Morphine No Notes: Memoria - (Same l 22:53: as:MORPhin e Sulfate) Ondansetron No Notes: Boy andrés 01-10 (Same as: l 22:53: Zofran) MEDICATION WASTE Product Size: 4 mg Product Wasted: ___ mg Acetaminoph No 100.4 F, M emoria en - Start l 22:53: date: 01/11/16 17:53:00 CDT, Duration: 30 day, Stop date: 02/10/16 17:52:00 CDT irbesartan Yes 300 mg = 1 M emoria 300 mg oral 7-26 tab, PO, l tablet 22:27: Daily, # 00 30 tab, 0 Refill(s) irbesartan Yes 300 mg = 1 M emoria 300 mg oral 7-26 tab, PO, l tablet 22:27: Daily, # [place] 00 30 tab, 0 Refill(s) irbesartan 2016-0 [...] tab, PO, l tablet 22:27: Daily, # [place] 00 30 tab, 0 Refill(s) irbesartan 2016-0 Yes 300 mg = 1 M emoria 300 mg oral 7-26 tab, PO, l tablet 22:27: Daily, # [place] 00 30 tab, 0 Refill(s) irbesartan 2016-0 Yes 300 mg = 1 M emoria 300 mg oral 7-26 tab, PO, l tablet 22:27: Daily, # [place] 00 30 tab, 0 Refill(s) irbesartan 2016-0 Yes 300 mg = 1 M emoria 300 mg oral 7-26 tab, PO, l tablet 22:27: Daily, # [place] 00 30 tab, 0 Refill(s) irbesartan 2016-0 Yes 300 mg = 1 M emoria 300 mg oral 7-26 tab, PO, l tablet 22:27: Daily, # [place] 00 30 tab, 0 Refill(s) irbesartan 2016-0 Yes 300 mg = 1 M emoria 300 mg oral 7-26 tab, PO, l tablet 22:27: Daily, # [place] 00 30 tab, 0 Refill(s) irbesartan 2016-0 Yes 300 mg = 1 M [place] 300 mg oral 7-26 tab, PO, l tablet 22:27: Daily, # [place] 00 30 tab, 0 Refill(s) irbesartan 2016-0 Yes 300 mg = 1 M [place] 300 mg oral 7-26 tab, PO, l tablet 22:27: Daily, # [place] 00 30 tab, 0 Refill(s) irbesartan 2016-0 Yes 300 mg = 1 M [place] 300 mg oral 7-26 tab, PO, l tablet 22:27: Daily, # [place] 00 30 tab, 0 Refill(s) irbesartan Yes 300 mg = 1 M emoria 300 mg oral 7-26 tab, PO, l tablet 22:27: Daily, # [place] 00 30 tab, 0 Refill(s) irbesartan Yes 300 mg = 1 M emoria 300 mg oral 7-26 tab, PO, l tablet 22:27: Daily, # [place] 00 30 tab, 0 Refill(s) irbesartan Yes 300 mg = 1 M emoria 300 mg oral 7-26 tab, PO, l tablet 22:27: Daily, # [place] 00 30 tab, 0 Refill(s) irbesartan Yes 300 mg = 1 M emoria 300 mg oral 7-26 tab, PO, l tablet 22:27: Daily, # [place] 00 30 tab, 0 Refill(s) irbesartan Yes 300 mg = 1 M emoria 300 mg oral 7-26 tab, PO, l tablet 22:27: Daily, # [place] 00 30 tab, 0 Refill(s) irbesartan Yes 300 mg = 1 M emoria 300 mg oral 7-26 tab, PO, l tablet 22:27: Daily, # [place] 00 30 tab, 0 Refill(s) Co Q-10 100 Yes 200 mg = 2 Memoria mg oral - cap, PO, l capsule 22:21: Daily, 0 Richard n 00 Refill(s) Aspirin 81 Yes 81 mg = 1 Me moria MG Enteric -26 tab, PO, l Coated 22:21: Daily, # [place] Tablet 00 90 tab, 3 Refill(s) Vitamin [...] tab, PO, l Tablet 22:21: Daily, # [place] 00 30 tab, 0 Refill(s) Co Q-10 [...] a 7-26 IntlUnit, l 22:21: PO, Daily, [place] 00 0 Refill(s) Aspirin 81 Yes 81 [...] tab, PO, l Tablet 22:21: Daily, # [place] 00 30 tab, 0 Refill(s) Vitamin D3 Yes 2,000 Memori a 7-26 IntlUnit, l 22:21: PO, Daily, [place] 00 0 Refill(s) Rosuvastati Yes See Memori [...] a 7-26 IntlUnit, l 22:21: PO, Daily, [place] 00 0 Refill(s) Rosuvastati Yes See Memori [...] tab, PO, l Tablet 22:21: Daily, # [place] 00 30 tab, 0 Refill(s) Co Q-10 [...] a 7-26 IntlUnit, l 22:21: PO, Daily, [place] 00 0 Refill(s) Rosuvastati Yes See Memori [...] tab, PO, l Coated 22:21: Daily, # [place] Tablet 00 90 tab, 3 Refill(s) Vitamin D3 Yes 2,000 Memori a 7-26 IntlUnit, l 22:21: PO, Daily, [place] 00 0 Refill(s) Rosuvastati Yes See Memori [...] tab, PO, l Coated 22:21: Daily, # [place] Tablet 00 90 tab, 3 Refill(s) Vitamin [...] tab, PO, l Tablet 22:21: Daily, # [place] 00 30 tab, 0 Refill(s) Co Q-10 100 Yes 200 mg = 2 Memoria mg oral 7-26 cap, PO, l capsule 22:21: Daily, 0 Richard n 00 Refill(s) Aspirin 81 0 Yes 81 mg = 1 Me moria MG Enteric 7-26 tab, PO, l Coated 22:21: Daily, # [place] Tablet 00 90 tab, 3 Refill(s) Vitamin [...] a 7-26 IntlUnit, l 22:21: PO, Daily, [place] 00 0 Refill(s) Rosuvastati Yes See Memori a n calcium 5 26 Instructio l MG Oral 22:21: ns, 1 [...] tab, PO, l Tablet 22:21: Daily, # [place] 00 30 tab, 0 Refill(s) Co Q-10 100 Yes 200 mg = 2 Memoria mg oral 7-26 cap, PO, l capsule 22:21: Daily, 0 Richard n 00 Refill(s) Aspirin 81 2016 Yes 81 mg = 1 Me moria MG Enteric 7-26 tab, PO, l Coated 22:21: Daily, # [place] Tablet 00 90 tab, 3 Refill(s) Vitamin D3 Yes 2,000 Memori a 7-26 IntlUnit, l 22:21: PO, Daily, [place] 00 0 Refill(s) Rosuvastati Yes See Memori [...] tab, PO, l Tablet 22:21: Daily, # [place] 00 30 tab, 0 Refill(s) Co Q-10 100 Yes 200 mg = 2 Memoria mg oral 7-26 cap, PO, l capsule 22:21: Daily, 0 Richard n 00 Refill(s) Aspirin 81 Yes 81 mg = 1 Me moria MG Enteric 7-26 tab, PO, l Coated 22:21: Daily, # [place] Tablet 00 90 tab, 3 Refill(s) Vitamin [...] 0 Richard n 00 Refill(s) Aspirin 81 2016-0 Yes 81 mg = 1 Me moria MG Enteric 7-26 tab, PO, l Coated 22:21: Daily, # [place] Tablet 00 90 tab, 3 Refill(s) Vitamin D3 Yes 2,000 Memori a 7-26 IntlUnit, l 22:21: PO, Daily, [place] 00 0 Refill(s) Rosuvastati Yes See Memori [...] tab, PO, l Tablet 22:21: Daily, # [place] 00 30 tab, 0 Refill(s) Co Q-10 100 Yes 200 mg = 2 Memoria mg oral 7-26 cap, PO, l capsule 22:21: Daily, 0 Richard n 00 Refill(s) Aspirin 81 Yes 81 mg = 1 Me moria MG Enteric 7-26 tab, PO, l Coated 22:21: Daily, # [place] Tablet 00 90 tab, 3 Refill(s) Vitamin [...] tab, PO, l Tablet 22:21: Daily, # [place] 00 30 tab, 0 Refill(s) Co Q-10 [...] a 7-26 IntlUnit, l 22:21: PO, Daily, [place] 00 0 Refill(s) Rosuvastati Yes See Memori [...] tab, PO, l Coated 22:21: Daily, # [place] Tablet 00 90 tab, 3 Refill(s) Vitamin [...] a 7-26 IntlUnit, l 22:21: PO, Daily, [place] 00 0 Refill(s) Rosuvastati Yes See Memori [...] a 7-26 IntlUnit, l 22:21: PO, Daily, [place] 00 0 Refill(s) Rosuvastati Yes See Memori a n calcium 5 - Instructio l MG Oral 22:21: ns, 1 [...] tab, PO, l Tablet 22:13: Daily, # [place] [Tradjenta] 00 30 tab, 3 Refill(s) Linagliptin [...] tab, PO, l Tablet 22:13: Daily, # [place] [Tradjenta] 00 30 tab, 3 Refill(s) Linagliptin 2016-0 Yes 5 mg = 1 Me moria 5 MG Oral 7-26 tab, PO, l Tablet 22:13: Daily, # [place] [Tradjenta] 00 30 tab, 3 Refill(s) Linagliptin 2016-0 Yes 5 mg = 1 Me moria 5 MG Oral 7-26 tab, PO, l Tablet 22:13: Daily, # [place] [Tradjenta] 00 30 tab, 3 Refill(s) Linagliptin 2016-0 Yes 5 mg = 1 Me moria 5 MG Oral 7-26 tab, PO, l Tablet 22:13: Daily, # [place] [Tradjenta] 00 30 tab, 3 Refill(s) Linagliptin 2016-0 Yes 5 mg = 1 Me moria 5 MG Oral 7-26 tab, PO, l Tablet 22:13: Daily, # [place] [Tradjenta] 00 30 tab, 3 Refill(s) Linagliptin 2016-0 Yes 5 mg = 1 Me moria 5 MG Oral 7-26 tab, PO, l Tablet 22:13: Daily, # [place] [Tradjenta] 00 30 tab, 3 Refill(s) Linagliptin 2016-0 Yes 5 mg = 1 Me moria 5 MG Oral 7-26 tab, PO, l Tablet 22:13: Daily, # [place] [Tradjenta] 00 30 tab, 3 Refill(s) Linagliptin 2016-0 Yes 5 mg = 1 Me moria 5 MG Oral 7-26 tab, PO, l Tablet 22:13: Daily, # [place] [Tradjenta] 00 30 tab, 3 Refill(s) Linagliptin 2016-0 Yes 5 mg = 1 Me moria 5 MG Oral 7-26 tab, PO, l Tablet 22:13: Daily, # [place] [Tradjenta] 00 30 tab, 3 Refill(s) Linagliptin 2016-0 Yes 5 mg = 1 Me moria 5 MG Oral 7-26 tab, PO, l Tablet 22:13: Daily, # [place] [Tradjenta] 00 30 tab, 3 Refill(s) Linagliptin [...] tab, PO, l Tablet 22:13: Daily, # [place] [Tradjenta] 00 30 tab, 3 Refill(s) Linagliptin [...] tabs, Mem oria en 325 MG / 7- PO, Q6H, 0 l Hydrocodone 22:01: Refill(s) [place] Bitartrate 00 10 MG Oral Tablet [[place] 10/325] Amlodipine 0 Yes 10 mg, PO, M emoria 7-26 Daily, 0 l 22:01: Refill(s) [place] 00 Acetaminoph 0 Yes 2 tabs, Mem oria en 325 MG / 7-26 PO, Q6H, 0 l Hydrocodone 22:01: Refill(s) [place] Bitartrate 00 10 MG Oral Tablet [[place] 10/325] Amlodipine 0 Yes 10 mg, PO, M emoria 7-26 Daily, 0 l 22:01: Refill(s) [place] 00 Acetaminoph Yes 2 tabs, Mem oria en 325 MG / - PO, Q6H, 0 l Hydrocodone 22:01: Refill(s) [place] Bitartrate 00 10 MG Oral Tablet [[place] 10/325] Amlodipine Yes 10 mg, PO, M emoria 7 Daily, 0 l 22:01: Refill(s) Acetaminoph Yes 2 tabs, Mem oria en 325 MG / - PO, Q6H, 0 l Hydrocodone 22:01: Refill(s) [place] Bitartrate 00 10 MG Oral Tablet [[place] 10/325] Amlodipine Yes 10 mg, PO, M emoria 01-10 Daily, 0 l 22:01: Refill(s) Acetaminoph Yes 2 tabs, Mem oria en 325 MG / - PO, Q6H, 0 l Hydrocodone 22:01: Refill(s) [place] Bitartrate 00 10 MG Oral Tablet [[place] 10/325] Amlodipine Yes 10 mg, PO, M emoria 01-10 Daily, 0 l 22:01: Refill(s) Acetaminoph Yes 2 tabs, Mem oria en 325 MG / - PO, Q6H, 0 l Hydrocodone 22:01: Refill(s) [place] Bitartrate 00 10 MG Oral Tablet [[place] 10/325] Amlodipine Yes 10 mg, PO, M emoria 01-10 Daily, 0 l 22:01: Refill(s) Acetaminoph Yes 2 tabs, Mem oria en 325 MG / -26 PO, Q6H, 0 l Hydrocodone 22:01: Refill(s) [place] Bitartrate 00 10 MG Oral Tablet [[place] 10/325] Amlodipine Yes 10 mg, PO, M emoria 7 Daily, 0 l 22:01: Refill(s) Acetaminoph Yes 2 tabs, Mem oria en 325 MG / 7-26 PO, Q6H, 0 l Hydrocodone 22:01: Refill(s) [place] Bitartrate 00 10 MG Oral Tablet [[place] 10/325] Amlodipine Yes 10 mg, PO, M emoria 01-10 Daily, 0 l 22:01: Refill(s) [place] 00 Acetaminoph Yes 2 tabs, Mem oria en 325 MG / 01-10 PO, Q6H, 0 l Hydrocodone 22:01: Refill(s) [place] Bitartrate 00 10 MG Oral Tablet [[place] 10/325] Amlodipine Yes 10 mg, PO, M emoria 01-10 Daily, 0 l 22:01: Refill(s) [place] 00 Acetaminoph Yes 2 tabs, Mem oria en 325 MG / 01-10 PO, Q6H, 0 l Hydrocodone 22:01: Refill(s) [place] Bitartrate 00 10 MG Oral Tablet [[place] 10/325] Amlodipine Yes 10 mg, PO, M emoria 01-10 Daily, 0 l 22:01: Refill(s) [place] 00 Acetaminoph Yes 2 tabs, Mem oria en 325 MG / 01-10 PO, Q6H, 0 l Hydrocodone 22:01: Refill(s) [place] Bitartrate 00 10 MG Oral Tablet [[place] 10/325] Amlodipine Yes 10 mg, PO, M emoria 01-10 Daily, 0 l 22:01: Refill(s) [place] 00 Acetaminoph Yes 2 tabs, Mem oria en 325 MG / 01-10 PO, Q6H, 0 l Hydrocodone 22:01: Refill(s) [place] Bitartrate 00 10 MG Oral Tablet [[place] 10/325] Amlodipine Yes 10 mg, PO, M emoria 01-10 Daily, 0 l 22:01: Refill(s) [place] 00 Acetaminoph Yes 2 tabs, Mem oria en 325 MG / - PO, Q6H, 0 l Hydrocodone 22:01: Refill(s) [place] Bitartrate 00 10 MG Oral Tablet [[place] 10/325] Amlodipine Yes 10 mg, PO, M emoria 01-10 Daily, 0 l 22:01: Refill(s) [place] 00 Acetaminoph Yes 2 tabs, Mem oria en 325 MG / 01-10 PO, Q6H, 0 l Hydrocodone 22:01: Refill(s) [place] Bitartrate 00 10 MG Oral Tablet [[place] 10/325] Amlodipine Yes 10 mg, PO, M emoria 01-10 Daily, 0 l 22:01: Refill(s) Acetaminoph Yes 2 tabs, Mem oria en 325 MG / 01-10 PO, Q6H, 0 l Hydrocodone 22:01: Refill(s) [place] Bitartrate 00 10 MG Oral Tablet [[place] 10/325] Amlodipine Yes 10 mg, PO, M emoria 01-10 Daily, 0 l 22:01: Refill(s) Acetaminoph Yes 2 tabs, Mem oria en 325 MG / 01-10 PO, Q6H, 0 l Hydrocodone 22:01: Refill(s) [place] Bitartrate 00 10 MG Oral Tablet [[place] 10/325] Amlodipine Yes 10 mg, PO, M emoria 01-10 Daily, 0 l 22:01: Refill(s) Acetaminoph Yes 2 tabs, Mem oria en 325 MG / 01-10 PO, Q6H, 0 l Hydrocodone 22:01: Refill(s) [place] Bitartrate 00 10 MG Oral Tablet [[place] 10/325] Amlodipine Yes 10 mg, PO, M emoria 01-10 Daily, 0 l 22:01: Refill(s) Acetaminoph Yes 2 tabs, Mem oria en 325 MG / 01-10 PO, Q6H, 0 l Hydrocodone 22:01: Refill(s) [place] Bitartrate 00 10 MG Oral Tablet [[place] 10/325] Amlodipine Yes 10 mg, PO, M emoria 01-10 Daily, 0 l 22:01: Refill(s) Acetaminoph Yes 2 tabs, Mem oria en 325 MG / 01-10 PO, Q6H, 0 l Hydrocodone 22:01: Refill(s) [place] Bitartrate 00 10 MG Oral Tablet [[place] 10/325] Amlodipine Yes 10 mg, PO, M emoria 01-10 Daily, 0 l 22:01: Refill(s) [place] 00 coenzyme coenzyme No coenzyme A zalea Q10 100 mg Q10 100 mg 01-10 Q10 100 mg Orth[facility] capsule capsule 00:00: capsule [facility] coenzyme coenzyme No coenzyme A zalea Q10 100 mg Q10 100 mg 01-10 Q10 100 mg Orth[facility] capsule capsule 00:00: capsule [facility] aspirin RX aspirin RX [...] Richard n 03 tab, Substituti on Allowed Cla[place] Yes Rigoberto 1-2 tab, Memoria 10/325 oral 4-21 [place] PO, Q4-6H, l tablet 13:43: Meiner PRN, 90 Richard n 05 tab, Pain, Substituti on Allowed, Maintenanc e Cla[place] Yes Rigoberto 1-2 tab, Memoria 10/325 oral 4-21 [place] PO, Q4-6H, l tablet 13:43: [place] PRN, 90 Richard n 05 tab, Pain, Substituti on Allowed, Maintenanc e [place] 2012- Yes Rigoberto 1-2 tab, Memoria 10/325 oral 4-21 [place] PO, Q4-6H, l tablet 13:43: [place] PRN, 90 Richard n 05 tab, Pain, Substituti on Allowed, Maintenanc e [place] Yes Rigoberto 1-2 tab, Memoria 10/325 oral 4-21 [place] PO, Q4-6H, l tablet 13:43: Me[place] PRN, 90 Richard n 05 tab, Pain, Substituti on Allowed, Maintenanc e [place] Yes Rigoberto 1-2 tab, Memoria 10/325 oral 4-21 [place] PO, Q4-6H, l tablet 13:43: [place] PRN, 90 Richard n 05 tab, Pain, Substituti on Allowed, Maintenanc e [place] Yes Rigoberto 1-2 tab, Memoria 10/325 oral 4-21 [place] PO, Q4-6H, l tablet 13:43: Me[place] PRN, 90 Richard n 05 tab, Pain, Substituti on Allowed, Maintenanc e [place] Yes Rigoberto 1-2 tab, Memoria 10/325 oral 4-21 [place] PO, Q4-6H, l tablet 13:43: Me[place] PRN, 90 Richard n 05 tab, Pain, Substituti on Allowed, Maintenanc e Clarence Yes Rigoberto 1-2 tab, Memoria 10/325 oral 4-21 [place] PO, Q4-6H, l tablet 13:43: Me[place] PRN, 90 Richard n 05 tab, Pain, Substituti on Allowed, Maintenanc e Cla[place] Yes Rigoberto 1-2 tab, Memoria 10/325 oral 4-21 [place] PO, Q4-6H, l tablet 13:43: Me[place] PRN, 90 Richard n 05 tab, Pain, Substituti on Allowed, Maintenanc e Clarence Yes Rigoberto 1-2 tab, Memoria 10/325 oral 4-21 [place] PO, Q4-6H, l tablet 13:43: Meiner PRN, 90 Richard n 05 tab, Pain, Substituti on Allowed, Maintenanc e Clarence Yes Rigoberto 1-2 tab, Memoria 10/325 oral 4-21 [place] PO, Q4-6H, l tablet 13:43: Me[place] PRN, 90 Richard n 05 tab, Pain, Substituti on Allowed, Maintenanc e Clarence Yes Rigoberto 1-2 tab, Memoria 10/325 oral 4-21 [place] PO, Q4-6H, l tablet 13:43: Meiner PRN, 90 Richard n 05 tab, Pain, Substituti on Allowed, Maintenanc e Clarence Yes Rigoberto 1-2 tab, Memoria 10/325 oral 4-21 [place] PO, Q4-6H, l tablet 13:43: Meiner PRN, 90 Richard n 05 tab, Pain, Substituti on Allowed, Maintenanc e Cla[place] Yes Rigoberto 1-2 tab, Memoria 10/325 oral 4-21 [place] PO, Q4-6H, l tablet 13:43: Meiner PRN, 90 Richard n 05 tab, Pain, Substituti on Allowed, Maintenanc e Clarence Yes Rigoberto 1-2 tab, Memoria 10/325 oral 4-21 [place] PO, Q4-6H, l tablet 13:43: Meiner PRN, 90 Richard n 05 tab, Pain, Substituti on Allowed, Maintenanc e Clarence Yes Rigoberto 1-2 tab, Memoria 10/325 oral 4-21 [place] PO, Q4-6H, l tablet 13:43: Meiner PRN, 90 Richard n 05 tab, Pain, Substituti on Allowed, Maintenanc e Cla[place] Yes Rigoberto 1-2 tab, Memoria 10/325 oral 4-21 [place] PO, Q4-6H, l tablet 13:43: Meiner PRN, 90 Richard n 05 tab, Pain, Substituti on Allowed, Maintenanc e Clarence Yes Rigoberto 1-2 tab, Memoria 10/325 oral 4-21 [place] PO, Q4-6H, l tablet 13:43: Meiner PRN, 90 Richard n 05 tab, Pain, Substituti on Allowed, Maintenanc e Clarence Yes Rigoberto 1-2 tab, Memoria 10/325 oral 4-21 [place] PO, Q4-6H, l tablet 13:43: Meiner PRN, 90 Richard n 05 tab, Pain, Substituti on Allowed, Maintenanc e Flexeril Yes Rigoberto 10 mg, 1 Me moria mg oral 4-21 [place] tab, PO, l tablet 13:42: Meiner TID, PRN, Herm robert 53 30 tab, for spasm, Substituti on Allowed, TAB Flexeril Yes Rigoberto 10 mg, 1 Me moria [...] 0 Yes Rigoberto As Memoria Dosepak 4 4-21 [...] l mg Tablet 13:42: Meiner on package [place] 51 instructio ns, PO, Daily, Take with or without food, 1 Pack, Substituti on AllowedTak e with or without food Medrol 2012-0 Yes Rigoberto As Memoria Dosepak 4 4-21 [place] directed l mg Tablet 13:42: Meiner on package [place] 51 instructio ns, PO, Daily, Take with or without food, 1 Pack, Substituti on AllowedTak e with or without food Medrol 2012-0 Yes Rigoberto As Memoria Dosepak 4 4-21 [place] directed l mg Tablet 13:42: Meiner on package [place] 51 instructio ns, PO, Daily, Take with or without food, 1 Pack, Substituti on AllowedTak e with or without food Medrol 2012-0 Yes Rigoberto As Memoria Dosepak 4 4-21 [place] directed l mg Tablet 13:42: Meiner on package [place] 51 instructio ns, PO, Daily, Take with or without food, 1 Pack, Substituti on AllowedTak e with or without food Medrol 2013-0 Yes Rigoberto As Memoria Dosepak 4 4-21 [place] directed l mg Tablet 13:42: Meiner on package [place] 51 instructio ns, PO, Daily, Take with or without food, 1 Pack, Substituti on AllowedTak e with or without food Medrol 2012-0 Yes Rigoberto As Memoria Dosepak 4 4-21 [place] directed l mg Tablet 13:42: Meiner on package [place] 51 instructio ns, PO, Daily, Take with or without food, 1 Pack, Substituti on AllowedTak e with or without food Medrol 2012-0 Yes Rigoberto As Memoria Dosepak 4 4-21 [place] directed l mg Tablet 13:42: Meiner on package [place] 51 instructio ns, PO, Daily, Take with or without food, 1 Pack, Substituti on AllowedTak e with or without food Medrol 2012-0 Yes Rigoberto As Memoria Dosepak 4 4-21 [place] directed l mg Tablet 13:42: Meiner on package [place] 51 instructio ns, PO, Daily, Take with or without food, 1 Pack, Substituti on AllowedTak e with or without food Medrol 0 Yes Rigoberto As Memoria Dosepak 4 4-21 [...] l mg Tablet 13:42: [place]iner on package [place] 51 instructio ns, PO, Daily, Take with [...] l mg Tablet 13:42: Meiner on package [place] 51 instructio ns, PO, Daily, Take with or without food, 1 Pack, Substituti on AllowedTak e with or without food Medrol Yes Rigoberot As Memoria Dosepak 4 4-21 [place] directed l mg Tablet 13:42: [place]iner on package [place] 51 instructio ns, PO, Daily, Take with [...] Stop date: 11/04/12 19:59:00 diphenhydrA 2013-0 No Bbo 25 mg, 1 Memoria MINE 25 mg [...] 4-20 [place] 0.1 mL, l 23:46: Route: [place] 00 SUB-Q, Drug form: INJ, ONCE, Dosing [...] 4-20 [place] 0.1 mL, l 23:46: Route: [place] 00 SUB-Q, Drug form: INJ, ONCE, Dosing [...] 4-20 [place] 0.1 mL, l 23:46: Route: [place] 00 SUB-Q, Drug form: INJ, ONCE, Dosing Weight 91.818, kg, Start date: 10/05/12 18:46:00, Stop date: 10/05/12 18:46:00 Lantus 2012-0 No Estela 10 unit, Memor ia 4-20 [place] 0.1 mL, l 23:46: Route: [place] 00 SUB-Q, Drug form: INJ, ONCE, Dosing [...] 4-20 [place] 0.1 mL, l 23:46: Route: [place] 00 SUB-Q, Drug form: INJ, ONCE, Dosing Weight 91.818, kg, Start date: 10/05/12 18:46:00, Stop date: 10/05/12 18:46:00 Lantus 2012-0 No Estela 10 unit, Memor ia 4-20 [place] 0.1 mL, l 23:46: Route: [place] 00 SUB-Q, Drug form: INJ, ONCE, Dosing [...] 4-20 Young 0.1 mL, l 23:46: Route: [place] 00 SUB-Q, Drug form: INJ, ONCE, Dosing Weight 91.818, kg, Start date: 10/05/12 18:46:00, Stop date: 10/05/12 18:46:00 Lantus 2012-0 No Estela 10 unit, Memor ia 4-20 [place] 0.1 mL, l 23:46: Route: [place] 00 SUB-Q, Drug form: INJ, ONCE, Dosing Weight 91.818, kg, Start date: 10/05/12 18:46:00, Stop date: 10/05/12 18:46:00 Lantus 2012-0 No Estela 10 unit, Memor ia 4-20 [place] 0.1 mL, l 23:46: Route: [place] 00 SUB-Q, Drug form: INJ, ONCE, Dosing Weight 91.818, kg, Start date: 10/05/12 18:46:00, Stop date: 10/05/12 18:46:00 Lantus 2012-0 No Estela 10 unit, Memor ia 4-20 Young 0.1 mL, l 23:46: Route: [place] 00 SUB-Q, Drug form: INJ, ONCE, Dosing [...] 4-20 Young 0.1 mL, l 23:46: Route: [place] 00 SUB-Q, Drug form: INJ, ONCE, Dosing [...] 4-20 Young 0.1 mL, l 23:46: Route: [place] SUB-Q, Drug form: INJ, ONCE, Dosing Weight [...] Young Route: IM, l 22:13: Drug form: [place] 00 PDR/INJ, PRN, Dosing Weight 91.818, kg, PRN Blood Glucose Results, Start date: 10/05/12 17:13:00, Duration: 30 day, Stop date: 11/04/12 17:12:00 Dextrose 2012-0 No Estela 12.5 gm, Mem oria 50% Syringe 4-20 [place] 25 mL, l 22:13: Route: [place] 00 IVP, Drug Form: INJ, Dosing Weight 91.818, kg, PRN, PRN Blood Glucose Results, Start date: 10/05/12 17:13:00, Duration: 30 day, Stop date: 11/04/12 17:12:00 insulin 2012-0 No Estela 3 unit, Memor ia aspart 4-20 [place] 0.03 mL, l 22:13: Route: [place] 00 SUB-Q, Drug form: SOLN, TID-Before Meals, [...] 4-20 [place] 25 mL, l 22:13: Route: [place] 00 IVP, Drug Form: INJ, Dosing Weight [...] Young Route: IM, l 22:13: Drug form: [place] 00 PDR/INJ, PRN, Dosing Weight 91.818, kg, PRN Blood Glucose Results, Start date: 10/05/12 17:13:00, Duration: 30 day, Stop date: 11/04/12 17:12:00 Dextrose 2012-0 No Estela 12.5 gm, Mem oria 50% Syringe 4-20 [place] 25 mL, l 22:13: Route: [place] 00 IVP, Drug Form: INJ, Dosing Weight [...] Young Route: IM, l 22:13: Drug form: [place] 00 PDR/INJ, PRN, Dosing Weight 91.818, kg, PRN Blood Glucose Results, Start date: 10/05/12 17:13:00, Duration: 30 day, Stop date: 11/04/12 17:12:00 Dextrose 2012-0 No Estela 12.5 gm, Mem oria 50% Syringe 4-20 [place] 25 mL, l 22:13: Route: [place] 00 IVP, Drug Form: INJ, Dosing Weight [...] 4-20 [place] 25 mL, l 22:13: Route: [place] 00 IVP, Drug Form: INJ, Dosing Weight [...] Young Route: IM, l 22:13: Drug form: [place] 00 PDR/INJ, PRN, Dosing Weight 91.818, kg, [...] 4-20 Young 0.03 mL, l 22:13: Route: [place] 00 SUB-Q, Drug form: SOLN, TID-Before Meals, Dosing Weight 91.818, kg, PRN Blood Glucose Results, Start date: 10/05/12 17:13:00, Duration: 30 day, Stop date: 11/04/12 17:12:00 glucagon 2012-0 No Estela 1 mg, Memori a 4-20 Young Route: IM, l 22:13: Drug form: [place] 00 PDR/INJ, PRN, Dosing Weight 91.818, kg, [...] 4-20 Young 0.03 mL, l 22:13: Route: [place] 00 SUB-Q, Drug form: SOLN, TID-Before Meals, [...] 4-20 Young 25 mL, l 22:13: Route: [place] 00 IVP, Drug Form: INJ, Dosing Weight [...] Young Route: IM, l 22:13: Drug form: [place] 00 PDR/INJ, PRN, Dosing Weight 91.818, kg, PRN Blood Glucose Results, Start date: 10/05/12 17:13:00, Duration: 30 day, Stop date: 11/04/12 17:12:00 Dextrose 2012-0 No Estela 12.5 gm, Mem oria 50% Syringe 4-20 [place] 25 mL, l 22:13: Route: [place] 00 IVP, Drug Form: INJ, Dosing Weight [...] 4-20 [place] 25 mL, l 22:13: Route: [place] 00 IVP, Drug Form: INJ, Dosing Weight 91.818, kg, PRN, PRN Blood Glucose Results, Start date: 10/05/12 17:13:00, Duration: 30 day, Stop date: 11/04/12 17:12:00 insulin 2012-0 No Estela 3 unit, Memor ia aspart 4-20 Young 0.03 mL, l 22:13: Route: [place] 00 SUB-Q, Drug form: SOLN, TID-Before Meals, Dosing Weight 91.818, kg, PRN Blood Glucose Results, Start date: 10/05/12 17:13:00, Duration: 30 day, Stop date: 11/04/12 17:12:00 glucagon 2012-0 No Estela 1 mg, Memori a 4-20 Young Route: IM, l 22:13: Drug form: [place] 00 PDR/INJ, PRN, Dosing Weight 91.818, kg, PRN Blood Glucose Results, Start date: 10/05/12 17:13:00, Duration: 30 day, Stop date: 11/04/12 17:12:00 Dextrose 2012-0 No Estela 12.5 gm, Mem oria 50% Syringe 4-20 [place] 25 mL, l 22:13: Route: [place] 00 IVP, Drug Form: INJ, Dosing Weight 91.818, kg, PRN, PRN Blood Glucose Results, Start date: 10/05/12 17:13:00, Duration: 30 day, Stop date: 11/04/12 17:12:00 insulin 2012-0 No Estela 3 unit, Memor ia aspart 4-20 Young 0.03 mL, l 22:13: Route: [place] 00 SUB-Q, Drug form: SOLN, TID-Before Meals, Dosing Weight 91.818, kg, PRN Blood Glucose Results, Start date: 10/05/12 17:13:00, Duration: 30 day, Stop date: 11/04/12 17:12:00 glucagon 2012-0 No Estela 1 mg, Memori a 4-20 Young Route: IM, l 22:13: Drug form: [place] 00 PDR/INJ, PRN, Dosing Weight 91.818, kg, [...] 4-20 Young 0.03 mL, l 22:13: Route: [place] 00 SUB-Q, Drug form: SOLN, TID-Before Meals, [...] 4-20 Young 25 mL, l 22:13: Route: [place] 00 IVP, Drug Form: INJ, Dosing Weight 91.818, kg, PRN, PRN Blood Glucose Results, Start date: 10/05/12 17:13:00, Duration: 30 day, Stop date: 11/04/12 17:12:00 insulin 2012-0 No [place] 3 unit, Memor ia aspart 4-20 Young 0.03 mL, l 22:13: Route: [place] 00 SUB-Q, Drug form: SOLN, TID-Before Meals, [...] 4-20 Young 25 mL, l 22:13: Route: [place] 00 IVP, Drug Form: INJ, Dosing Weight 91.818, kg, PRN, PRN Blood Glucose Results, Start date: 10/05/12 17:13:00, Duration: 30 day, Stop date: 11/04/12 17:12:00 insulin 2012-0 No [place] 3 unit, Memor ia aspart 4-20 Young 0.03 mL, l 22:13: Route: [place] 00 SUB-Q, Drug form: SOLN, TID-Before Meals, Dosing Weight 91.818, kg, PRN Blood Glucose Results, Start date: 10/05/12 17:13:00, Duration: 30 day, Stop date: 11/04/12 17:12:00 glucagon 2012-0 No [place] 1 mg, Memori a 4-20 Young Route: IM, l 22:13: Drug form: [place] 00 PDR/INJ, PRN, Dosing Weight 91.818, kg, PRN Blood Glucose Results, Start date: 10/05/12 17:13:00, Duration: 30 day, Stop date: 11/04/12 17:12:00 Dextrose 2012-0 No [place] 12.5 gm, Mem oria 50% Syringe 4-20 Young 25 mL, l 22:13: Route: [place] 00 IVP, Drug Form: INJ, Dosing Weight 91.818, kg, PRN, PRN Blood Glucose Results, Start date: 10/05/12 17:13:00, Duration: 30 day, Stop date: 11/04/12 17:12:00 insulin 2012-0 No [place] 3 unit, Memor ia aspart 4-20 Young 0.03 mL, l 22:13: Route: [place] 00 SUB-Q, Drug form: SOLN, TID-Before Meals, [...] 4-20 Young 25 mL, l 22:13: Route: [place] 00 IVP, Drug Form: INJ, Dosing Weight 91.818, kg, PRN, PRN Blood Glucose Results, Start date: 10/05/12 17:13:00, Duration: 30 day, Stop date: 11/04/12 17:12:00 insulin 2012-0 No [place] 3 unit, Memor ia aspart 4-20 Young 0.03 mL, l 22:13: Route: [place] 00 SUB-Q, Drug form: SOLN, TID-Before Meals, [...] 4-20 Young 0.03 mL, l 22:13: Route: [place] 00 SUB-Q, Drug form: SOLN, TID-Before Meals, [...] 4-20 Young 25 mL, l 22:13: Route: [place] 00 IVP, Drug Form: INJ, Dosing Weight [...] 4-20 Young 25 mL, l 22:13: Route: [place] 00 IVP, Drug Form: INJ, Dosing Weight 91.818, kg, PRN, PRN Blood Glucose Results, Start date: 10/05/12 17:13:00, Duration: 30 day, Stop date: 11/04/12 17:12:00 insulin 2013-0 No Estela 5 unit, Memor [...] 4-20 Young 0.05 mL, l 16:30: Route: [place] 00 SUB-Q, Drug form: SOLN, TID-Before Meals, [...] 4-20 Young 0.05 mL, l 16:30: Route: [place] 00 SUB-Q, Drug form: SOLN, TID-Before Meals, Dosing Weight 91.818, kg, Start date: 10/05/12 11:30:00, Duration: 30 day, Stop date: 11/04/12 7:30:00 insulin 2013-0 No Estela 5 unit, Memor ia aspart 4-20 Young 0.05 mL, l 16:30: Route: [place] 00 SUB-Q, Drug form: SOLN, TID-Before Meals, [...] 4-20 Young 0.05 mL, l 16:30: Route: [place] SUB-Q, Drug form: SOLN, TID-Before Meals, Dosing Weight 91.818, kg, Start date: 10/05/12 11:30:00, Duration: 30 day, Stop date: 11/04/12 7:30:00 insulin 2013-0 No Estela 5 unit, Memor ia aspart 4-20 Young 0.05 mL, l 16:30: Route: [place] SUB-Q, Drug form: SOLN, TID-Before Meals, Dosing Weight 91.818, kg, Start date: 10/05/12 11:30:00, Duration: 30 day, Stop date: 11/04/12 7:30:00 insulin 2013-0 No Estela 5 unit, Memor ia aspart 4-20 Young 0.05 mL, l 16:30: Route: [place] 00 SUB-Q, Drug form: SOLN, TID-Before Meals, Dosing Weight 91.818, kg, Start date: 10/05/12 11:30:00, Duration: 30 day, Stop date: 11/04/12 7:30:00 insulin 2013-0 No Estela 5 unit, Memor ia aspart 4-20 Young 0.05 mL, l 16:30: Route: [place] 00 SUB-Q, Drug form: SOLN, TID-Before Meals, Dosing Weight 91.818, kg, Start date: 10/05/12 11:30:00, Duration: 30 day, Stop date: 11/04/12 7:30:00 insulin 2013-0 No Estela 5 unit, Memor ia aspart 4-20 Young 0.05 mL, l 16:30: Route: [place] SUB-Q, Drug form: SOLN, TID-Before Meals, Dosing [...] 4-20 Young 0.05 mL, l 16:30: Route: [place] SUB-Q, Drug form: SOLN, TID-Before Meals, Dosing [...] 4-20 Young 0.05 mL, l 16:30: Route: [place] 00 SUB-Q, Drug form: SOLN, TID-Before Meals, [...] 4-20 Young 0.05 mL, l 16:30: Route: [place] 00 SUB-Q, Drug form: SOLN, TID-Before Meals, [...] 4-20 Dionisio tab, l 09:41: Route: PO, [place] 00 Drug form: TAB, ONCE, Dosing Weight [...] 4-20 Dionisio tab, l 09:41: Route: PO, [place] 00 Drug form: TAB, ONCE, Dosing Weight 91.818, kg, PRN Anxiety, Start date: 10/05/12 4:41:00, Stop date: 11/04/12 4:40:00 Valium 2013-0 No Dorothy 5 mg, 1 Memori a 4-20 Dionisio tab, l 09:41: Route: PO, [place] 00 Drug form: TAB, ONCE, Dosing Weight 91.818, kg, PRN Anxiety, Start date: 10/05/12 4:41:00, Stop date: 11/04/12 4:40:00 Valium 2013-0 No Dorothy 5 mg, 1 Memori a 4-20 Dionisio tab, l 09:41: Route: PO, [place] 00 Drug form: TAB, ONCE, Dosing Weight 91.818, kg, PRN Anxiety, Start date: 10/05/12 4:41:00, Stop date: 11/04/12 4:40:00 Valium 2013-0 No Dorothy 5 mg, 1 Memori a 4-20 Dionisio tab, l 09:41: Route: PO, [place] 00 Drug form: TAB, ONCE, Dosing Weight [...] 4-20 Dionisio tab, l 09:41: Route: PO, [place] 00 Drug form: TAB, ONCE, Dosing Weight [...] 4-20 Dionisio tab, l 09:41: Route: PO, [place] 00 Drug form: TAB, ONCE, Dosing Weight 91.818, kg, PRN Anxiety, Start date: 10/05/12 4:41:00, Stop date: 11/04/12 4:40:00 Valium 2013-0 No Dorothy 5 mg, 1 Memori a 4-20 Dionisio tab, l 09:41: Route: PO, [place] 00 Drug form: TAB, ONCE, Dosing Weight 91.818, kg, PRN Anxiety, Start date: 10/05/12 4:41:00, Stop date: 11/04/12 4:40:00 Valium 2013-0 No Dorothy 5 mg, 1 Memori a 4-20 Dionisio tab, l 09:41: Route: PO, [place] 00 Drug form: TAB, ONCE, Dosing Weight 91.818, kg, PRN Anxiety, Start date: 10/05/12 4:41:00, Stop date: 11/04/12 4:40:00 Valium 2013-0 No Dorothy 5 mg, 1 Memori a 4-20 Dionisio tab, l 09:41: Route: PO, [place] 00 Drug form: TAB, ONCE, Dosing Weight [...] Dionisio mL, Route: l 05:00: IVP, Drug [place] 00 form: INJ, Q6H, Dosing Weight 91.818, kg, Start date: 10/05/12 0:00:00, Duration: 30 day, Stop date: 11/03/12 18:00:00 heparin 2012-0 No [facility] 5,000 Mem oria 4-20 n Deniz unit, 1 l 05:00: mL, Route: [place] 00 SUB-Q, Drug form: INJ, Q8H, Dosing Weight 91.818, kg, Start date: 10/05/12 0:00:00, Duration: 30 day, Stop date: 11/03/12 16:00:00 dexamethaso 2012-0 No Dorothy 4 mg, 1 M emoria ne 4-20 Dionisio mL, Route: l 05:00: IVP, Drug [place] 00 form: INJ, Q6H, Dosing Weight 91.818, kg, Start date: 10/05/12 0:00:00, Duration: 30 day, Stop date: 11/03/12 18:00:00 heparin 2012-0 No [facility] 5,000 Mem oria 4-20 n Deniz unit, 1 l 05:00: mL, Route: [place] 00 SUB-Q, Drug form: INJ, Q8H, Dosing [...] Deniz unit, 1 l 05:00: mL, Route: [place] 00 SUB-Q, Drug form: INJ, Q8H, Dosing Weight 91.818, kg, Start date: 10/05/12 0:00:00, Duration: 30 day, Stop date: 11/03/12 16:00:00 dexamethaso 2012-0 No Dorothy 4 mg, 1 M emoria ne 4-20 Dionisio mL, Route: l 05:00: IVP, Drug [place] 00 form: INJ, Q6H, Dosing Weight 91.818, kg, Start date: 10/05/12 0:00:00, Duration: 30 day, Stop date: 11/03/12 18:00:00 heparin 2012-0 No -Joseo 5,000 Mem oria 4-20 n Deniz unit, 1 l 05:00: mL, Route: [place] 00 SUB-Q, Drug form: INJ, Q8H, Dosing [...] Dionisio mL, Route: l 05:00: IVP, Drug [place] 00 form: INJ, Q6H, Dosing Weight 91.818, [...] Dionisio mL, Route: l 05:00: IVP, Drug [place] 00 form: INJ, Q6H, Dosing Weight 91.818, kg, Start date: 10/05/12 0:00:00, Duration: 30 day, Stop date: 11/03/12 18:00:00 heparin 2012-0 No [facility] 5,000 Mem oria 4-20 n Deniz unit, 1 l 05:00: mL, Route: [place] 00 SUB-Q, Drug form: INJ, Q8H, Dosing Weight 91.818, kg, Start date: 10/05/12 0:00:00, Duration: 30 day, Stop date: 11/03/12 16:00:00 dexamethaso 2013-0 No Dorothy 4 mg, 1 M emoria ne 4-20 Dionisio mL, Route: l 05:00: IVP, Drug [place] 00 form: INJ, Q6H, Dosing Weight 91.818, kg, Start date: 10/05/12 0:00:00, Duration: 30 day, Stop date: 11/03/12 18:00:00 heparin 2012-0 No -Joseo 5,000 Mem oria 4-20 n Deniz unit, 1 l 05:00: mL, Route: [place] 00 SUB-Q, Drug form: INJ, Q8H, Dosing Weight 91.818, kg, Start date: 10/05/12 0:00:00, Duration: 30 day, Stop date: 11/03/12 16:00:00 dexamethaso 2012-0 No Dorothy 4 mg, 1 M emoria ne 4-20 Dionisio mL, Route: l 05:00: IVP, Drug [place] 00 form: INJ, Q6H, Dosing Weight 91.818, kg, Start date: 10/05/12 0:00:00, Duration: 30 day, Stop date: 11/03/12 18:00:00 heparin 2012-0 No -Joseo 5,000 Mem oria 4-20 n Deniz unit, 1 l 05:00: mL, Route: [place] 00 SUB-Q, Drug form: INJ, Q8H, Dosing Weight 91.818, kg, Start date: 10/05/12 0:00:00, Duration: 30 day, Stop date: 11/03/12 16:00:00 dexamethaso 2012-0 No Dorothy 4 mg, 1 M emoria ne 4-20 Dionisio mL, Route: l 05:00: IVP, Drug [place] 00 form: INJ, Q6H, Dosing Weight 91.818, kg, Start date: 10/05/12 0:00:00, Duration: 30 day, Stop date: 11/03/12 18:00:00 heparin 2012-0 No -Joseo 5,000 Mem oria 4-20 n Deniz unit, 1 l 05:00: mL, Route: [place] 00 SUB-Q, Drug form: INJ, Q8H, Dosing Weight 91.818, kg, Start date: 10/05/12 0:00:00, Duration: 30 day, Stop date: 11/03/12 16:00:00 dexamethaso 2012-0 No Dorothy 4 mg, 1 M emoria ne 4-20 Dionisio mL, Route: l 05:00: IVP, Drug [place] 00 form: INJ, Q6H, Dosing Weight 91.818, kg, Start date: 10/05/12 0:00:00, Duration: 30 day, Stop date: 11/03/12 18:00:00 heparin 2012-0 No [facility] 5,000 Mem oria 4-20 n Deniz unit, 1 l 05:00: mL, Route: [place] 00 SUB-Q, Drug form: INJ, Q8H, Dosing Weight 91.818, kg, Start date: 10/05/12 0:00:00, Duration: 30 day, Stop date: 11/03/12 16:00:00 dexamethaso 2012-0 No Dorothy 4 mg, 1 M emoria ne 4-20 Dionisio mL, Route: l 05:00: IVP, Drug [place] 00 form: INJ, Q6H, Dosing Weight 91.818, [...] Deniz unit, 1 l 05:00: mL, Route: [place] 00 SUB-Q, Drug form: INJ, Q8H, Dosing [...] 2012-0 No Dorothy 4 mg, 1 M harikaria ne 4-20 Dionisio mL, Route: l 05:00: IVP, Drug [place] 00 form: INJ, Q6H, Dosing Weight 91.818, kg, Start date: 10/05/12 0:00:00, Duration: 30 day, Stop date: 11/03/12 18:00:00 heparin 2012-0 No [facility] 5,000 Mem oria 4-20 n Deniz unit, 1 l 05:00: mL, Route: [place] 00 SUB-Q, Drug form: INJ, Q8H, Dosing Weight 91.818, kg, Start date: 10/05/12 0:00:00, Duration: 30 day, Stop date: 11/03/12 16:00:00 dexamethaso 2012-0 No Dorothy 4 mg, 1 M harikariwm mirza 4-20 Dionisio mL, Route: l 05:00: IVP, Drug [place] 00 form: INJ, Q6H, Dosing Weight 91.818, [...] Stop date: 11/03/12 18:00:00 heparin 2012-0 No -Aaro 5,000 Mem oria 4-20 n Deniz unit, 1 l 05:00: mL, Route: [place] 00 SUB-Q, Drug form: INJ, Q8H, Dosing Weight 91.818, kg, Start date: 10/05/12 0:00:00, Duration: 30 day, Stop date: 11/03/12 16:00:00 dexamethaso 2012-0 No Dorothy 4 mg, 1 M emoria ne 4-20 Dionisio mL, Route: l 05:00: IVP, Drug form: INJ, Q6H, Dosing Weight 91.818, kg, Start date: 10/05/12 0:00:00, Duration: 30 day, Stop date: 11/03/12 18:00:00 heparin 2012-0 No -Joseo 5,000 Mem oria 4-20 n Deniz unit, 1 l 05:00: mL, Route: [place] 00 SUB-Q, Drug form: INJ, Q8H, Dosing [...] 4-20 Dionisio tab, l 02:00: Route: PO, [place] 00 Drug form: TAB, BID, Dosing Weight 91.818, kg, Start date: 10/04/12 21:00:00, Duration: 30 day, Stop date: 11/03/12 9:00:00 famotidine 2013-0 No Dorothy 20 mg, 1 M emoria 4-20 Dionisio tab, l 02:00: Route: PO, [place] 00 Drug form: TAB, BID, Dosing Weight [...] 4-20 Dionisio tab, l 02:00: Route: PO, [place] 00 Drug form: TAB, BID, Dosing Weight [...] 4-20 Dionisio tab, l 02:00: Route: PO, [place] 00 Drug form: TAB, BID, Dosing Weight 91.818, kg, Start date: 10/04/12 21:00:00, Duration: 30 day, Stop date: 11/03/12 9:00:00 famotidine 2013-0 No Dorothy 20 mg, 1 M emoria 4-20 Dionisio tab, l 02:00: Route: PO, [place] 00 Drug form: TAB, BID, Dosing Weight 91.818, kg, Start date: 10/04/12 21:00:00, Duration: 30 day, Stop date: 11/03/12 9:00:00 famotidine 2013-0 No Dorothy 20 mg, 1 M emoria 4-20 Dionisio tab, l 02:00: Route: PO, [place] 00 Drug form: TAB, BID, Dosing Weight [...] Dionisio tab, l 02:00: Route: PO, [place] Drug form: TAB, BID, Dosing Weight 91.818, kg, Start date: 10/04/12 21:00:00, Duration: 30 day, Stop date: 11/03/12 9:00:00 famotidine 2013-0 No Dorothy 20 mg, 1 M emoria 4-20 Dionisio tab, l 02:00: Route: PO, [place] 00 Drug form: TAB, BID, Dosing Weight [...] Insulin 2013-0 No Estela 12 unit, Boy andrés regular 4-20 Young 0.12 mL, l 00:54: Route: [place] 00 SUB-Q, Drug form: SOLN, TID-Before Meals, [...] 4-20 Young 0.12 mL, l 00:54: Route: [place] 00 SUB-Q, Drug form: SOLN, TID-Before Meals, [...] mL, Route: l 00:54: Grazyna IVP, Drug [place] 00 Law Form: INJ, Dosing Weight 91.818, [...] 4-20 Young 0.12 mL, l 00:54: Route: [place] 00 SUB-Q, Drug form: SOLN, TID-Before Meals, [...] mL, Route: l 00:54: Grazyna IVP, Drug [place] 00 Law Form: INJ, Dosing Weight 91.818, kg, PRN, PRN Blood Glucose Results, Start date: 10/04/12 19:54:00, Duration: 30 day, Stop date: 11/03/12 19:53:00 Insulin 2012-0 No Estela 12 unit, Boy andrés regular 4-20 Young 0.12 mL, l 00:54: Route: [place] 00 SUB-Q, Drug form: SOLN, TID-Before Meals, [...] mL, Route: l 00:54: Grazyna IVP, Drug Law Form: INJ, Dosing Weight 91.818, kg, [...] No Petra 1 mg, Mem oria 4-20 Cramen Route: IM, l 00:54: Grazyna Drug form: [...] 4-20 Young 0.12 mL, l 00:54: Route: [place] 00 SUB-Q, Drug form: SOLN, TID-Before Meals, [...] 4-20 Young 0.12 mL, l 00:54: Route: [place] 00 SUB-Q, Drug form: SOLN, TID-Before Meals, [...] 4-20 Young 0.12 mL, l 00:54: Route: [place] 00 SUB-Q, Drug form: SOLN, TID-Before Meals, [...] mL, Route: l 00:54: Grazyna IVP, Drug [place] 00 Law Form: INJ, Dosing Weight 91.818, kg, PRN, PRN Blood Glucose Results, Start date: 10/04/12 19:54:00, Duration: 30 day, Stop date: 11/03/12 19:53:00 Insulin 2012-0 No Estela 12 unit, Boy andrés regular 4-20 Young 0.12 mL, l 00:54: Route: [place] 00 SUB-Q, Drug form: SOLN, TID-Before Meals, [...] mL, Route: l 00:54: Grazyna IVP, Drug [place] 00 Law Form: INJ, Dosing Weight 91.818, [...] mL, Route: l 00:54: Grazyna IVP, Drug [place] Law Form: INJ, Dosing Weight 91.818, kg, PRN, PRN Blood Glucose Results, Start date: 10/04/12 19:54:00, Duration: 30 day, Stop date: 11/03/12 19:53:00 Insulin 2012-0 No Estela 12 unit, Boy andrés regular 4-20 Young 0.12 mL, l 00:54: Route: [place] 00 SUB-Q, Drug form: SOLN, TID-Before Meals, Dosing Weight 91.818, kg, PRN Blood Glucose Results, Start date: 10/04/12 19:54:00, Duration: 30 day, Stop date: 11/03/12 19:53:00 glucagon 2012-0 No Petra 1 mg, Mem oria 4-20 Carmen Route: IM, l 00:54: Grazyna Drug form: Richard thompson 00 Law PDR/INJ, PRN, Dosing Weight 91.818, kg, PRN Blood Glucose Results, Start date: 10/04/12 19:54:00, Duration: 30 day, Stop date: 11/03/12 19:53:00 Dextrose 2012-0 No Petra 25 gm, 50 Memoria 50% Syringe 4-20 Carmen mL, Route: l 00:54: Grazyna IVP, Drug [place] Law Form: INJ, Dosing Weight 91.818, kg, PRN, PRN Blood Glucose Results, Start date: 10/04/12 19:54:00, Duration: 30 day, Stop date: 11/03/12 19:53:00 Insulin 2012-0 No Estela 12 unit, Boy andrés regular 4-20 Young 0.12 mL, l 00:54: Route: [place] 00 SUB-Q, Drug form: SOLN, TID-Before Meals, [...] mL, Route: l 00:54: Grazyna IVP, Drug [place] 00 Law Form: INJ, Dosing Weight 91.818, kg, PRN, PRN Blood Glucose Results, Start date: 10/04/12 19:54:00, Duration: 30 day, Stop date: 11/03/12 19:53:00 Insulin 2012-0 No Estela 12 unit, Boy andrés regular 4-20 Young 0.12 mL, l 00:54: Route: [place] 00 SUB-Q, Drug form: SOLN, TID-Before Meals, [...] 4-20 Young 0.12 mL, l 00:54: Route: [place] 00 SUB-Q, Drug form: SOLN, TID-Before Meals, [...] mL, Route: l 00:54: Grazyna IVP, Drug [place] 00 Law Form: INJ, Dosing Weight 91.818, [...] Route: l Chloride 00:14: IVP, Drug Herm roebrt 0.9% IV 50 00 form: INJ, mL [...] Young mL, Route: l 21:00: IVPB, Drug [place] 00 form: INJ, Q2H, Dosing Weight 91.818, [...] Young mL, Route: l 21:00: IVPB, Drug [place] 00 form: INJ, Q2H, Dosing Weight 91.818, kg, Total dose = 4 gm, Start date: 10/04/12 16:00:00, Duration: 2 doses or times, Stop date: 10/04/12 18:00:00 magnesium 2012-0 No Estela 2 gm, 50 Me moria sulfate 4-19 Young mL, Route: l 21:00: IVPB, Drug [place] 00 form: INJ, Q2H, Dosing Weight 91.818, kg, Total dose = 4 gm, Start date: 10/04/12 16:00:00, Duration: 2 doses or times, Stop date: 10/04/12 18:00:00 magnesium 2012-0 No Estela 2 gm, 50 Me moria sulfate 4-19 Young mL, Route: l 21:00: IVPB, Drug [place] 00 form: INJ, Q2H, Dosing Weight 91.818, kg, Total dose = 4 gm, Start date: 10/04/12 16:00:00, Duration: 2 doses or times, Stop date: 10/04/12 18:00:00 magnesium 2012-0 No Estela 2 gm, 50 Me moria sulfate 4-19 Young mL, Route: l 21:00: IVPB, Drug [place] 00 form: INJ, Q2H, Dosing Weight 91.818, kg, Total dose = 4 gm, Start date: 10/04/12 16:00:00, Duration: 2 doses or times, Stop date: 10/04/12 18:00:00 magnesium 2012-0 No Estela 2 gm, 50 Me moria sulfate 4-19 Young mL, Route: l 21:00: IVPB, Drug [place] 00 form: INJ, Q2H, Dosing Weight 91.818, kg, Total dose = 4 gm, Start date: 10/04/12 16:00:00, Duration: 2 doses or times, Stop date: 10/04/12 18:00:00 magnesium 2013-0 No Estela 2 gm, 50 Me moria sulfate 4-19 Young mL, Route: l 21:00: IVPB, Drug [place] 00 form: INJ, Q2H, Dosing Weight 91.818, [...] Young mL, Route: l 21:00: IVPB, Drug [place] 00 form: INJ, Q2H, Dosing Weight 91.818, kg, Total dose = 4 gm, Start date: 10/04/12 16:00:00, Duration: 2 doses or times, Stop date: 10/04/12 18:00:00 magnesium 2013-0 No Estela 2 gm, 50 Me moria sulfate 4-19 Young mL, Route: l 21:00: IVPB, Drug [place] 00 form: INJ, Q2H, Dosing Weight 91.818, kg, Total dose = 4 gm, Start date: 10/04/12 16:00:00, Duration: 2 doses or times, Stop date: 10/04/12 18:00:00 magnesium 2013-0 No Estela 2 gm, 50 Me moria sulfate 4-19 Young mL, Route: l 21:00: IVPB, Drug [place] 00 form: INJ, Q2H, Dosing Weight 91.818, kg, Total dose = 4 gm, Start date: 10/04/12 16:00:00, Duration: 2 doses or times, Stop date: 10/04/12 18:00:00 magnesium 2012-0 No Estela 2 gm, 50 Me moria sulfate 4-19 Young mL, Route: l 21:00: IVPB, Drug [place] 00 form: INJ, Q2H, Dosing Weight 91.818, kg, Total dose = 4 gm, Start date: 10/04/12 16:00:00, Duration: 2 doses or times, Stop date: 10/04/12 18:00:00 magnesium 2012-0 No Estela 2 gm, 50 Me moria sulfate 4-19 Young mL, Route: l 21:00: IVPB, Drug [place] 00 form: INJ, Q2H, Dosing Weight 91.818, [...] Michael mL, Route: l 16:52: IVP, Drug [place] 00 form: INJ, ONCE, Dosing Weight 91.818, [...] Michael mL, Route: l 16:52: IVP, Drug [place] 00 form: INJ, ONCE, Dosing Weight 91.818, [...] Michael mL, Route: l 16:52: IVP, Drug [place] 00 form: INJ, ONCE, Dosing Weight 91.818, [...] Michael mL, Route: l 16:52: IVP, Drug [place] 00 form: INJ, ONCE, Dosing Weight 91.818, [...] Michael mL, Route: l 16:52: IVP, Drug [place] 00 form: INJ, ONCE, Dosing Weight 91.818, [...] Michael mL, Route: l 16:52: IVP, Drug [place] 00 form: INJ, ONCE, Dosing Weight 91.818, [...] Michael mL, Route: l 16:52: IVP, Drug [place] 00 form: INJ, ONCE, Dosing Weight 91.818, [...] Michael mL, Route: l 16:52: IVP, Drug [place] 00 form: INJ, ONCE, Dosing Weight 91.818, [...] Maisha L 1 mg, 0.5 M emoria -19 Michael mL, Route: l 16:52: IVP, Drug [place] 00 form: INJ, ONCE, Dosing Weight 91.818, [...] Mabry Route: PO, l 14:00: Drug form: [place] 00 TAB, Daily, Dosing Weight 91.818, kg, [...] Guaman pkt, l 3350 14:00: Route: PO, [place] 00 Drug form: PWDR, Daily, Dosing Weight [...] Mabry Route: PO, l 14:00: Drug form: [place] 00 TAB, Daily, Dosing Weight 91.818, kg, [...] No Estela 30 unit, Memor ia 4-19 Yuong 0.3 mL, l 14:00: Route: SUB-Q, Drug [...] Mabry Route: PO, l 14:00: Drug form: [place] 00 TAB, Daily, Dosing Weight 91.818, kg, [...] 4-19 Young 0.3 mL, l 14:00: Route: [place] 00 SUB-Q, Drug form: INJ, Daily, Dosing [...] Mabry Route: PO, l 14:00: Drug form: [place] 00 TAB, Daily, Dosing Weight 91.818, kg, [...] 2012-0 No Leah Yen 25 mg, M harikarobwm thiazide 4-19 Thi Mabry Route: PO, l [...] 4-19 Young 0.3 mL, l 14:00: Route: [place] 00 SUB-Q, Drug form: INJ, Daily, Dosing [...] 30 day, Stop date: 11/02/12 9:00:00 amLODipine 0 No [facility] 10 mg, 1 Memoria 4-19 [...] 4-19 Young 0.3 mL, l 14:00: Route: [place] 00 SUB-Q, Drug form: INJ, Daily, Dosing [...] Deniz tab, PO, l 13:02: Q8H, 30 [place] 06 tab, Substituti on Allowed Zofran 4 mg 2012- Yes [facility] 4 mg, 1 Memoria oral tablet 4-19 n Deniz tab, PO, l 13:02: Q8H, 30 [place] 06 tab, Substituti on Allowed Zofran 4 mg 2012- Yes [facility] 4 mg, 1 Memoria oral tablet 4-19 n Deniz tab, PO, l 13:02: Q8H, 30 [place] 06 tab, Substituti on Allowed Zofran 4 mg 2012-0 Yes [facility] 4 mg, 1 Memoria oral tablet 4-19 n Deniz tab, PO, l 13:02: Q8H, 30 [place] 06 tab, Substituti on Allowed Zofran 4 mg 2012-0 Yes [facility] 4 mg, 1 Memoria oral tablet 4-19 n Deniz tab, PO, l 13:02: Q8H, 30 [place] 06 tab, Substituti on Allowed Zofran 4 mg 2012-0 Yes [facility] 4 mg, 1 Memoria oral tablet 4-19 n Deniz tab, PO, l 13:02: Q8H, 30 [place] 06 tab, Substituti on Allowed Zofran 4 [...] Deniz tab, PO, l 13:02: Q8H, 30 [place] 06 tab, Substituti on Allowed Zofran 4 [...] Deniz tab, PO, l 13:02: Q8H, 30 [place] 06 tab, Substituti on Allowed Zofran 4 [...] Deniz tab, PO, l 13:02: Q8H, 30 [place] 06 tab, Substituti on Allowed Zofran 4 mg Yes [facility] 4 mg, 1 Memoria oral tablet 4-19 n Deniz tab, PO, l 13:02: Q8H, 30 [place] 06 tab, Substituti on Allowed Zofran 4 mg Yes [facility] 4 mg, 1 Memoria oral tablet 4-19 n Deniz tab, PO, l 13:02: Q8H, 30 [place] 06 tab, Substituti on Allowed Zofran 4 mg Yes [facility] 4 mg, 1 Memoria oral tablet 4-19 n Deniz tab, PO, l 13:02: Q8H, 30 [place] 06 tab, Substituti on Allowed docusate Yes [...] PO, Q6H, l tablet 13:00: PRN, 112 [place] 09 tab, Pain, Substituti on Allowed, TAB tramadol 50 Yes [facility] 1 - 2 tab, Memoria mg oral 4-19 n Deniz PO, Q6H, l tablet 13:00: PRN, 112 [place] 09 tab, Pain, Substituti on Allowed, TAB tramadol 50 Yes [facility] 1 - 2 tab, Memoria mg oral 4-19 n Deniz PO, Q6H, l tablet 13:00: PRN, 112 [place] 09 tab, Pain, Substituti on Allowed, TAB tramadol 50 Yes [facility] 1 - 2 tab, Memoria mg oral 4-19 n Deniz PO, Q6H, l tablet 13:00: PRN, 112 [place] 09 tab, Pain, Substituti on Allowed, TAB tramadol 50 Yes [facility] 1 - 2 tab, Memoria mg oral 4-19 n Deniz PO, Q6H, l tablet 13:00: PRN, 112 [place] 09 tab, Pain, Substituti on Allowed, TAB tramadol 50 Yes [facility] 1 - 2 tab, Memoria mg oral 4-19 n Deniz PO, Q6H, l tablet 13:00: PRN, 112 [place] 09 tab, Pain, Substituti on Allowed, TAB tramadol 50 Yes [facility] 1 - 2 tab, Memoria mg oral 4-19 n Deniz PO, Q6H, l tablet 13:00: PRN, 112 [place] 09 tab, Pain, Substituti on Allowed, TAB tramadol 50 Yes [facility] 1 - 2 tab, Memoria mg oral 4-19 n Deniz PO, Q6H, l tablet 13:00: PRN, 112 [place] 09 tab, Pain, Substituti on Allowed, TAB tramadol 50 Yes [facility] 1 - 2 tab, Memoria mg oral 4-19 n Deniz PO, Q6H, l tablet 13:00: PRN, 112 [place] 09 tab, Pain, Substituti on Allowed, TAB tramadol 50 Yes [facility] 1 - 2 tab, Memoria mg oral 4-19 n Deniz PO, Q6H, l tablet 13:00: PRN, 112 [place] 09 tab, Pain, Substituti on Allowed, TAB tramadol 50 Yes [facility] 1 - 2 tab, Memoria mg oral 4-19 n Deniz PO, Q6H, l tablet 13:00: PRN, 112 [place] 09 tab, Pain, Substituti on Allowed, TAB tramadol 50 Yes [facility] 1 - 2 tab, Memoria mg oral 4-19 n Deniz PO, Q6H, l tablet 13:00: PRN, 112 [place] 09 tab, Pain, Substituti on Allowed, TAB tramadol 50 Yes [facility] 1 - 2 tab, Memoria mg oral 4-19 n Deniz PO, Q6H, l tablet 13:00: PRN, 112 [place] 09 tab, Pain, Substituti on Allowed, TAB tramadol 50 Yes [facility] 1 - 2 tab, [facility] mg oral 4-19 n Deniz PO, Q6H, l tablet 13:00: PRN, 112 [place] 09 tab, Pain, Substituti on Allowed, TAB tramadol 50 Yes [facility] 1 - 2 tab, [facility] mg oral 4-19 n Deniz PO, Q6H, l tablet 13:00: PRN, 112 [place] 09 tab, Pain, Substituti on Allowed, TAB tramadol 50 Yes [facility] 1 - 2 tab, [facility] mg oral 4-19 n Deniz PO, Q6H, l tablet 13:00: PRN, 112 [place] 09 tab, Pain, Substituti on Allowed, TAB [...] l oral tablet 13:00: TID, PRN, H erm 42 tab, Spasm, Substituti on Allowed, TAB cyclobenzap Yes [facility] 10 mg, 1 [facility] rine 10 mg 4-19 n Deniz tab, PO, l oral tablet 13:00: TID, PRN, H erm 42 tab, Spasm, Substituti on Allowed, TAB cyclobenzap 2012- Yes [facility] 10 mg, 1 [facility] rine 10 mg 4-19 n Deniz tab, PO, l oral tablet 13:00: TID, PRN, H erm tab, Spasm, Substituti on Allowed, TAB cyclobenzap Yes [facility] 10 mg, 1 [facility] rine 10 mg 4-19 n Deniz tab, PO, l oral tablet 13:00: TID, PRN, H erm 42 tab, Spasm, Substituti on Allowed, TAB [...] l oral tablet 13:00: TID, PRN, H erm tab, Spasm, Substituti on Allowed, TAB cyclobenzap 2012- Yes [facility] 10 mg, 1 [facility] rine 10 mg 4-19 n Deniz tab, PO, l oral tablet 13:00: TID, PRN, H erm 42 tab, Spasm, Substituti on Allowed, TAB olmesartan 2012- Yes [...] 34 tab, Substituti on Allowed, TAB olmesartan 2012-0 Yes [facility] 40 mg, 1 [facility] 40 mg oral 4-19 n Deniz tab, PO, l tablet 12:59: Daily, 30 Richard n 34 tab, Substituti on Allowed, TAB olmesartan 2012- Yes [facility] 40 mg, 1 [facility] 40 mg oral 4-19 n Deniz tab, PO, l tablet 12:59: Daily, 30 [place] n 34 tab, Substituti on Allowed, TAB olmesartan 2012-0 Yes [facility] 40 mg, 1 [facility] 40 mg oral 4-19 n Deniz tab, PO, l tablet 12:59: Daily, 30 Richard n 34 tab, Substituti on Allowed, TAB olmesartan 2012-0 Yes [facility] 40 mg, 1 [facility] 40 [...] No [facility] 0.3 mg, [facility] 4-19 n Dneiz 0.15 mL, l 12:57: Route: IV, Drug [...] No [facility] 0.3 mg, [facility] 4-19 n Deinz 0.15 mL, l 12:57: Route: IV, Luke [...] Deniz 0.15 mL, l 12:57: Route: IV, [place] 00 Drug form: INJ, Q3H, Dosing Weight 91.818, kg, PRN Pain Score 7-10, Start date: 10/04/12 7:57:00, Duration: 30 day, Stop date: 11/03/12 7:56:00 Dilaudid 2012-0 No [facility] 0.3 mg, [facility] 4-19 n Deniz 0.15 mL, l 12:57: Route: IV, [place] 00 Drug form: INJ, Q3H, Dosing Weight [...] Deniz 0.15 mL, l 12:57: Route: IV, [place] 00 Drug form: INJ, Q3H, Dosing Weight [...] Kelly mL, Route: l 08:22: IVP, Drug [place] 00 form: INJ, ONCE, Dosing Weight 91.818, kg, PRN Insomnia, Start date: 10/04/12 3:22:00 Benadryl 2012-0 No Jui-En 25 mg, 0.5 M emoria 10-04 Edward Kelly mL, Route: l 08:22: IVP, Drug [place] 00 form: INJ, ONCE, Dosing Weight 91.818, kg, PRN Insomnia, Start date: 10/04/12 3:22:00 Benadryl 2012-0 No Jui-En 25 mg, 0.5 M emoria 4-19 Edward Kelly mL, Route: l 08:22: IVP, Drug [place] 00 form: INJ, ONCE, Dosing Weight 91.818, kg, PRN Insomnia, Start date: 10/04/12 3:22:00 Benadryl 2012-0 No Jui-En 25 mg, 0.5 M emoria 4-19 Edward Kelly mL, Route: l 08:22: IVP, Drug [place] 00 form: INJ, ONCE, Dosing Weight 91.818, [...] Kelly mL, Route: l 08:22: IVP, Drug [place] 00 form: INJ, ONCE, Dosing Weight 91.818, kg, PRN Insomnia, Start date: 10/04/12 3:22:00 Benadryl 2012-0 No Jui-En 25 mg, 0.5 M emoria 4-19 Edward Kelly mL, Route: l 08:22: IVP, Drug [place] 00 form: INJ, ONCE, Dosing Weight 91.818, [...] Kelly mL, Route: l 08:22: IVP, Drug [place] 00 form: INJ, ONCE, Dosing Weight 91.818, kg, PRN Insomnia, Start date: 10/04/12 3:22:00 Benadryl 2012-0 No Jui-En 25 mg, 0.5 M emoria 4-19 Edward Eklly mL, Route: l 08:22: IVP, Drug [place] 00 form: INJ, ONCE, Dosing Weight 91.818, kg, PRN Insomnia, Start date: 10/04/12 3:22:00 Benadryl 2012-0 No Jui-En 25 mg, 0.5 M emoria 4-19 Edward Kelly mL, Route: l 08:22: IVP, Drug [place] 00 form: INJ, ONCE, Dosing Weight 91.818, [...] Kelly mL, Route: l 08:22: IVP, Drug [place] 00 form: INJ, ONCE, Dosing Weight 91.818, kg, PRN Insomnia, Start date: 10/04/12 3:22:00 Benadryl 0 No Jui-En 25 mg, 0.5 M emoria 10-04 Edward Kelly mL, Route: l 08:22: IVP, Drug [place] 00 form: INJ, ONCE, Dosing Weight 91.818, kg, PRN Insomnia, Start date: 10/04/12 3:22:00 Benadryl 2012-0 No Jui-En 25 mg, 0.5 M emoria 10-04 Edward Kelly mL, Route: l 08:22: IVP, Drug [place] 00 form: INJ, ONCE, Dosing Weight 91.818, kg, PRN Insomnia, Start date: 10/04/12 3:22:00 labetalol 0 No Estela 10 mg, 2 Me moria 4-19 Young mL, Route: l 08:05: IVP, Drug [place] 00 form: INJ, Q15Min, Dosing Weight 91.818, kg, PRN Hypertensi on, Start date: 10/04/12 3:05:00, Duration: 30 day, Stop date: 11/03/12 3:04:00 labetalol 2012-0 No Estela 10 mg, 2 Me moria 4-19 Young mL, Route: l 08:05: IVP, Drug [place] 00 form: INJ, Q15Min, Dosing Weight 91.818, kg, PRN Hypertensi on, Start date: 10/04/12 3:05:00, Duration: 30 day, Stop date: 11/03/12 3:04:00 labetalol 2012-0 No Estela 10 mg, 2 Me moria 4-19 Young mL, Route: l 08:05: IVP, Drug [place] 00 form: INJ, Q15Min, Dosing Weight 91.818, kg, PRN Hypertensi on, Start date: 10/04/12 3:05:00, Duration: 30 day, Stop date: 11/03/12 3:04:00 labetalol 2012-0 No Estela 10 mg, 2 Me moria 4-19 Young mL, Route: l 08:05: IVP, Drug [place] 00 form: INJ, Q15Min, Dosing Weight 91.818, [...] Young mL, Route: l 08:05: IVP, Drug [place] 00 form: INJ, Q15Min, Dosing Weight 91.818, kg, PRN Hypertensi on, Start date: 10/04/12 3:05:00, Duration: 30 day, Stop date: 11/03/12 3:04:00 labetalol 2012-0 No Estela 10 mg, 2 Me moria 4-19 Young mL, Route: l 08:05: IVP, Drug [place] 00 form: INJ, Q15Min, Dosing Weight 91.818, kg, PRN Hypertensi on, Start date: 10/04/12 3:05:00, Duration: 30 day, Stop date: 11/03/12 3:04:00 labetalol 2012-0 No Estela 10 mg, 2 Me moria 4-19 Young mL, Route: l 08:05: IVP, Drug [place] 00 form: INJ, Q15Min, Dosing Weight 91.818, [...] Young mL, Route: l 08:05: IVP, Drug [place] 00 form: INJ, Q15Min, Dosing Weight 91.818, [...] Young mL, Route: l 08:05: IVP, Drug [place] 00 form: INJ, Q15Min, Dosing Weight 91.818, [...] Young mL, Route: l 08:05: IVP, Drug [place] 00 form: INJ, Q15Min, Dosing Weight 91.818, kg, PRN Hypertensi on, Start date: 10/04/12 3:05:00, Duration: 30 day, Stop date: 11/03/12 3:04:00 labetalol 2012- No Estela 10 mg, 2 Me moria [...] Deniz mL, Route: l 05:16: IV, Drug [place] 00 form: INJ, Q6H, Dosing Weight 91.818, [...] Deniz mL, Route: l 05:16: IV, Drug [place] 00 form: INJ, Q6H, Dosing Weight 91.818, [...] Deniz mL, Route: l 05:16: IV, Drug [place] 00 form: INJ, Q6H, Dosing Weight 91.818, kg, PRN Elevated BP, Start date: 10/04/12 0:16:00, Duration: 30 day, Stop date: 11/03/12 0:15:00 hydrALAZINE 2012-0 No [facility] 10 mg, 0.5 Memoria 4-19 n Deniz mL, Route: l 05:16: IV, Drug [place] 00 form: INJ, Q6H, Dosing Weight 91.818, kg, PRN Elevated BP, Start date: 10/04/12 0:16:00, Duration: 30 day, Stop date: 11/03/12 0:15:00 hydrALAZINE 2012-0 No [facility] 10 mg, 0.5 Memoria 4-19 n Deniz mL, Route: l 05:16: IV, Drug [place] 00 form: INJ, Q6H, Dosing Weight 91.818, [...] Deniz mL, Route: l 05:16: IV, Drug [place] 00 form: INJ, Q6H, Dosing Weight 91.818, [...] mg, 1 M emoria 0.1 mg oral - Young tab, l tablet 05:00: Route: PO, [...] Young tab, l tablet 05:00: Route: PO, [place] 00 Drug form: TAB, QID, Dosing [...] 4-19 Young tab, l 02:00: Route: PO, [place] 00 Drug form: TAB, Q12H, Dosing Weight 91.818, kg, Start date: 10/03/12 21:00:00, Stop date: 11/02/12 9:00:00 Saline 2012-0 No [facility] 5 ml, Boy andrés Flush 0.9% -19 donna Guaman Route: l 02:00: IVP, Drug Form: INJ, Dosing Weight 91.818, kg, Q12H, Start date: 10/03/12 21:00:00, Duration: 30 day, Stop date: 11/02/12 9:00:00 docusate 2012-0 No [facility] 100 mg, 1 Memoria 4-19 n Deniz cap, l 02:00: Route: PO, [place] 00 Drug form: CAP, Q12H, Dosing Weight 91.818, kg, Start date: 10/03/12 21:00:00, Duration: 30 day, Stop date: 11/02/12 9:00:00 senna 2012-0 No [facility] 8.6 mg, 1 M emoria 4-19 n Deniz tab, l 02:00: Route: PO, [place] 00 Drug Form: TAB, Dosing Weight 91.818, kg, Q12H, Start date: 10/03/12 21:00:00, Duration: 30 day, Stop date: 11/02/12 9:00:00 carvedilol 2012-0 No Estela 12.5 mg, 1 Memoria 4-19 Young tab, l 02:00: Route: PO, Drug form: TAB, Q12H, Dosing Weight 91.818, kg, Start date: 10/03/12 21:00:00, Stop date: 11/02/12 9:00:00 Saline 2012-0 No [facility] 5 ml, Boy andrés Flush 0.9% 4-19 donna Guaman Route: l [...] 4-19 Young tab, l 02:00: Route: PO, [place] 00 Drug form: TAB, Q12H, Dosing Weight 91.818, kg, Start date: 10/03/12 21:00:00, Stop date: 11/02/12 9:00:00 Saline 2012-0 No [facility] 5 ml, Boy andrés Flush 0.9% 4-19 donna Guaman Route: l [...] No [facility] 8.6 mg, 1 M emoria - donna Guaman tab, l 02:00: Route: PO, [place] 00 Drug Form: TAB, Dosing Weight 91.818, kg, Q12H, Start date: 10/03/12 21:00:00, Duration: 30 day, Stop date: 11/02/12 9:00:00 carvedilol 2012-0 No Setela 12.5 mg, 1 Memoria 4-19 Young tab, l 02:00: Route: PO, Drug form: TAB, Q12H, Dosing Weight 91.818, kg, Start date: 10/03/12 21:00:00, Stop date: 11/02/12 9:00:00 Saline 2012-0 No [facility] 5 ml, Boy andrés Flush 0.9% 10-04 donna Guaman Route: l [...] donna Guaman tab, l 02:00: Route: PO, [place] 00 Drug Form: TAB, Dosing Weight 91.818, kg, Q12H, Start date: 10/03/12 21:00:00, Duration: 30 day, Stop date: 11/02/12 9:00:00 carvedilol 2012-0 No Estela 12.5 mg, 1 Memoria 4-19 Young tab, l 02:00: Route: PO, [place] 00 Drug form: TAB, Q12H, Dosing Weight 91.818, kg, Start date: 10/03/12 21:00:00, Stop date: 11/02/12 9:00:00 Saline 2012-0 No [facility] 5 ml, Boy andrés Flush 0.9% -19 donna Guaman Route: l [...] 4-19 Young tab, l 02:00: Route: PO, [place] 00 Drug form: TAB, Q12H, Dosing Weight 91.818, kg, Start date: 10/03/12 21:00:00, Stop date: 11/02/12 9:00:00 Saline 2012-0 No [facility] 5 ml, Boy andrés Flush 0.9% 4-19 donna Guaman Route: l [...] 4-19 Young tab, l 02:00: Route: PO, [place] 00 Drug form: TAB, Q12H, Dosing Weight 91.818, kg, Start date: 10/03/12 21:00:00, Stop date: 11/02/12 9:00:00 Saline 2012-0 No [facility] 5 ml, Boy andrés Flush 0.9% 4-19 donna Guaman Route: l 02:00: IVP, Drug Form: INJ, Dosing Weight 91.818, kg, Q12H, Start date: 10/03/12 21:00:00, Duration: 30 day, Stop date: 11/02/12 9:00:00 docusate 2012-0 No [facility] 100 mg, 1 Memoria 4-19 n Deniz cap, l 02:00: Route: PO, [place] 00 Drug form: CAP, Q12H, Dosing Weight [...] 4-19 Young tab, l 02:00: Route: PO, [place] 00 Drug form: TAB, Q12H, Dosing Weight 91.818, kg, Start date: 10/03/12 21:00:00, Stop date: 11/02/12 9:00:00 Saline 2012-0 No [facility] 5 ml, Boy andrés Flush 0.9% 10-04 donna Guaman Route: l [...] 4-19 Young tab, l 02:00: Route: PO, [place] 00 Drug form: TAB, Q12H, Dosing Weight 91.818, kg, Start date: 10/03/12 21:00:00, Stop date: 11/02/12 9:00:00 Saline 2012-0 No [facility] 5 ml, Boy andrés Flush 0.9% 4-19 donna Guaman Route: l [...] [facility] 5 ml, Boy andrés Flush 0.9% 4-19 donna Guaman Route: l [...] donna Deniz tab, l 02:00: Route: PO, [place] 00 Drug Form: TAB, Dosing Weight 91.818, kg, Q12H, Start date: 10/03/12 21:00:00, Duration: 30 day, Stop date: 11/02/12 9:00:00 carvedilol 2012-0 No Estela 12.5 mg, 1 Memoria 4-19 Young tab, l 02:00: Route: PO, [place] 00 Drug form: TAB, Q12H, Dosing Weight 91.818, kg, Start date: 10/03/12 21:00:00, Stop date: 11/02/12 9:00:00 Saline 2012-0 No [facility] 5 ml, Boy andrés Flush 0.9% -19 donna Guaman Route: l 02:00: IVP, Drug Form: INJ, Dosing Weight 91.818, kg, Q12H, Start date: 10/03/12 21:00:00, Duration: 30 day, Stop date: 11/02/12 9:00:00 docusate 2012-0 No [facility] 100 mg, 1 Memoria 4-19 donna Guaman cap, l 02:00: Route: PO, [place] 00 Drug form: CAP, Q12H, Dosing Weight [...] [facility] 5 ml, Boy andrés Flush 0.9% 4-19 donna Guaman Route: l [...] 4-19 Young tab, l 02:00: Route: PO, [place] 00 Drug form: TAB, Q12H, Dosing Weight 91.818, kg, Start date: 10/03/12 21:00:00, Stop date: 11/02/12 9:00:00 Saline 2012-0 No [facility] 5 ml, Boy andrés Flush 0.9% 4-19 donna Guaman Route: l [...] donna Guaman tab, l 02:00: Route: PO, [place] 00 Drug Form: TAB, Dosing Weight 91.818, kg, Q12H, Start date: 10/03/12 21:00:00, Duration: 30 day, Stop date: 11/02/12 9:00:00 carvedilol 2012-0 No Estela 12.5 mg, 1 Memoria 4-19 Young tab, l 02:00: Route: PO, [place] 00 Drug form: TAB, Q12H, Dosing Weight 91.818, kg, Start date: 10/03/12 21:00:00, Stop date: 11/02/12 9:00:00 Saline 2012-0 No [facility] 5 ml, Boy andrés Flush 0.9% 4-19 donna Guaman Route: l [...] donna Guaman tab, l 02:00: Route: PO, [place] 00 Drug Form: TAB, Dosing Weight 91.818, kg, Q12H, Start date: 10/03/12 21:00:00, Duration: 30 day, Stop date: 11/02/12 9:00:00 carvedilol 2012-0 No Estela 12.5 mg, 1 Memoria 4-19 Young tab, l 02:00: Route: PO, Drug form: TAB, Q12H, Dosing Weight 91.818, kg, Start date: 10/03/12 21:00:00, Stop date: 11/02/12 9:00:00 Saline 2012-0 No [facility] 5 ml, Boy andrés Flush 0.9% 4-19 donna Guaman Route: l [...] [facility] 5 ml, Boy andrés Flush 0.9% 4-19 donna Guaman Route: l [...] [facility] 5 ml, Boy andrés Flush 0.9% 4-19 donna Guaman Route: l [...] donna Guaman tab, l 02:00: Route: PO, [place] 00 Drug Form: TAB, Dosing Weight 91.818, kg, Q12H, Start date: 10/03/12 21:00:00, Duration: 30 day, Stop date: 11/02/12 9:00:00 carvedilol 2012-0 No Estela 12.5 mg, 1 Memoria 4-19 Young tab, l 02:00: Route: PO, [place] 00 Drug form: TAB, Q12H, Dosing Weight 91.818, kg, Start date: 10/03/12 21:00:00, Stop date: 11/02/12 9:00:00 Saline 2012-0 No [facility] 5 ml, Boy andrés Flush 0.9% -19 donna Deniz Route: l 02:00: IVP, Drug Form: INJ, Dosing Weight 91.818, kg, Q12H, Start date: 10/03/12 21:00:00, Duration: 30 day, Stop date: 11/02/12 9:00:00 docusate 2012-0 No [facility] 100 mg, 1 Memoria 4-19 n Deniz cap, l 02:00: Route: PO, [place] 00 Drug form: CAP, Q12H, Dosing Weight [...] [facility] 5 ml, Boy andrés Flush 0.9% 4-19 donna Guaman Route: l 02:00: IVP, Drug [place] 00 Form: INJ, Dosing Weight 91.818, kg, Q12H, Start date: 10/03/12 21:00:00, Duration: 30 day, Stop date: 11/02/12 9:00:00 docusate 2012-0 No [facility] 100 mg, 1 Memoria 4-19 n Deniz cap, l 02:00: Route: PO, [place] 00 Drug form: CAP, Q12H, Dosing Weight [...] date: 10/04/12 12:00:00 Ancef + 2013-0 No [facility] 2 gm, Mem oria Sodium 4-19 n [...] 4-18 Michael tab, l 23:56: Route: PO, [place] 00 Drug form: TAB, Q4H, Dosing Weight [...] n Deniz tab, l 23:54: Route: PO, [place] 00 Drug form: TAB, TID, Dosing Weight [...] n Deniz tab, l 23:54: Route: PO, [place] 00 Drug form: TAB, TID, Dosing Weight 91.818, kg, PRN Spasm, Start date: 10/03/12 18:54:00, Duration: 30 day, Stop date: 11/02/12 18:53:00 Flexeril 2012-0 No [facility] 10 mg, 1 Memoria 4-18 n Deniz tab, l 23:54: Route: PO, [place] 00 Drug form: TAB, TID, Dosing Weight 91.818, kg, PRN Spasm, Start date: 10/03/12 18:54:00, Duration: 30 day, Stop date: 11/02/12 18:53:00 Flexeril 2012-0 No [facility] 10 mg, 1 Memoria 4-18 n Deniz tab, l 23:54: Route: PO, [place] 00 Drug form: TAB, TID, Dosing Weight 91.818, kg, PRN Spasm, Start date: 10/03/12 18:54:00, Duration: 30 day, Stop date: 11/02/12 18:53:00 Flexeril 2012-0 No [facility] 10 mg, 1 Memoria 4-18 n Deniz tab, l 23:54: Route: PO, [place] 00 Drug form: TAB, TID, Dosing Weight [...] 30 day, Stop date: 11/02/12 18:53:00 Flexeril 0 No [facility] 10 mg, 1 Memoria 4-18 [...] Carmen 25 mL, l 23:18: Grazyna Route: [place] 00 Law IVP, Drug Form: INJ, Dosing [...] Carmen 25 mL, l 23:18: Grazyna Route: [place] Law IVP, Drug Form: INJ, Dosing Weight [...] Carmen 25 mL, l 23:18: Grazyna Route: [place] 00 Law IVP, Drug Form: INJ, Dosing [...] Carmen 25 mL, l 23:18: Grazyna Route: [place] 00 Law IVP, Drug Form: INJ, Dosing [...] Carmen 25 mL, l 23:18: Grazyna Route: [place] Law IVP, Drug Form: INJ, Dosing Weight [...] Carmen 25 mL, l 23:18: Grazyna Route: [place] 00 Law IVP, Drug Form: INJ, Dosing [...] Carmen 25 mL, l 23:18: Grazyna Route: [place] 00 Law IVP, Drug Form: INJ, Dosing [...] Carmen 25 mL, l 23:18: Grazyna Route: [place] 00 Law IVP, Drug Form: INJ, Dosing Weight 91.818, kg, PRN, PRN Abnormal Lab Result, Start date: 10/03/12 18:18:00, Duration: 30 day, Stop date: 11/02/12 18:17:00 insulin 2013-0 No Petra 5 unit, Me moria regular 100 4-18 Carmen 0.05 mL, l units/mL 23:18: Grazyna Route: Richard thompson human 00 Law SUB-Q, recombinant Drug form: SOLN, PRN, Dosing Weight 91.818, kg, PRN Abnormal Lab Result, Start date: 10/03/12 18:18:00, Duration: 30 day, Stop date: 11/02/12 18:17:00 Dextrose 2012-0 No Petra 12.5 gm, Memoria 50% Syringe 4-18 Carmen 25 mL, l 23:18: Grazyna Route: [place] Law IVP, Drug Form: INJ, Dosing Weight 91.818, kg, PRN, PRN Abnormal Lab Result, Start date: 10/03/12 18:18:00, Duration: 30 day, Stop date: 11/02/12 18:17:00 insulin 2012-0 No Petra 5 unit, Me moria regular 100 4-18 Carmen 0.05 mL, l units/mL 23:18: Grazyna Route: Richard thompson human Law SUB-Q, recombinant Drug form: SOLN, [...] Carmen 25 mL, l 23:18: Grazyna Route: [place] Law IVP, Drug Form: INJ, Dosing Weight [...] Carmen 25 mL, l 23:18: Grazyna Route: [place] 00 Law IVP, Drug Form: INJ, Dosing [...] Carmen 25 mL, l 23:18: Grazyna Route: [place] Law IVP, Drug Form: INJ, Dosing Weight [...] 30 day, Stop date: 11/02/12 18:17:00 Dextrose 2013-0 No Petra 12.5 gm, Memoria 50% Syringe 4-18 Carmen 25 mL, l 23:18: Grazyna Route: [place] 00 Law IVP, Drug Form: INJ, Dosing [...] Deniz mL, Route: l 23:14: IVP, Drug [place] 00 form: INJ, Q15Min, Dosing Weight 91.818, [...] Deniz mL, Route: l 23:14: IVP, Drug [place] 00 form: INJ, Q4H, Dosing Weight 91.818, [...] Deniz mL, Route: l 23:14: IVP, Drug [place] 00 form: INJ, Q4H, Dosing Weight 91.818, kg, PRN Other -See Comment, Start date: 10/03/12 18:14:00, Duration: 30 day, Stop date: 11/02/12 18:13:00, SBP > 150 mmHg labetalol 2012-0 No [facility] 20 mg, 4 Memoria 4-18 n Deniz mL, Route: l 23:14: IVP, Drug [place] 00 form: INJ, Q15Min, Dosing Weight 91.818, kg, PRN Elevated BP, Start date: 10/03/12 18:14:00, Duration: 3 doses or times, Stop date: 10/04/12 0:00:00, SBP > 150 mmHg hydrALAZINE 2012-0 No [facility] 20 mg, 1 Memoria 4-18 n Deniz mL, Route: l 23:14: IVP, Drug [place] 00 form: INJ, Q4H, Dosing Weight 91.818, [...] Deniz mL, Route: l 23:14: IVP, Drug [place] 00 form: INJ, Q4H, Dosing Weight 91.818, [...] Deniz mL, Route: l 23:14: IVP, Drug [place] 00 form: INJ, Q4H, Dosing Weight 91.818, [...] Deniz mL, Route: l 23:14: IVP, Drug [place] 00 form: INJ, Q4H, Dosing Weight 91.818, [...] Deniz mL, Route: l 23:14: IVP, Drug [place] 00 form: INJ, Q15Min, Dosing Weight 91.818, kg, PRN Elevated BP, Start date: 10/03/12 18:14:00, Duration: 3 doses or times, Stop date: 10/04/12 0:00:00, SBP > 150 mmHg hydrALAZINE 2012-0 No [facility] 20 mg, 1 Memoria 4-18 n Deniz mL, Route: l 23:14: IVP, Drug [place] 00 form: INJ, Q4H, Dosing Weight 91.818, kg, PRN Other -See Comment, Start date: 10/03/12 18:14:00, Duration: 30 day, Stop date: 11/02/12 18:13:00, SBP > 150 mmHg labetalol 2012-0 No [facility] 20 mg, 4 Memoria 4-18 n Deniz mL, Route: l 23:14: IVP, Drug [place] 00 form: INJ, Q15Min, Dosing Weight 91.818, kg, PRN Elevated BP, Start date: 10/03/12 18:14:00, Duration: 3 doses or times, Stop date: 10/04/12 0:00:00, SBP > 150 mmHg hydrALAZINE 2012-0 No [facility] 20 mg, 1 Memoria 4-18 n Deniz mL, Route: l 23:14: IVP, Drug [place] 00 form: INJ, Q4H, Dosing Weight 91.818, kg, PRN Other -See Comment, Start date: 10/03/12 18:14:00, Duration: 30 day, Stop date: 11/02/12 18:13:00, SBP > 150 mmHg labetalol 2012-0 No [facility] 20 mg, 4 Memoria 4-18 n Deniz mL, Route: l 23:14: IVP, Drug [place] 00 form: INJ, Q15Min, Dosing Weight 91.818, kg, PRN Elevated BP, Start date: 10/03/12 18:14:00, Duration: 3 doses or times, Stop date: 10/04/12 0:00:00, SBP > 150 mmHg hydrALAZINE 2012-0 No [facility] 20 mg, 1 Memoria 4-18 n Deniz mL, Route: l 23:14: IVP, Drug [place] 00 form: INJ, Q4H, Dosing Weight 91.818, kg, PRN Other -See Comment, Start date: 10/03/12 18:14:00, Duration: 30 day, Stop date: 11/02/12 18:13:00, SBP > 150 mmHg labetalol 2012-0 No [facility] 20 mg, 4 Memoria 4-18 n Deniz mL, Route: l 23:14: IVP, Drug [place] 00 form: INJ, Q15Min, Dosing Weight 91.818, kg, PRN Elevated BP, Start date: 10/03/12 18:14:00, Duration: 3 doses or times, Stop date: 10/04/12 0:00:00, SBP > 150 mmHg hydrALAZINE 2012-0 No [facility] 20 mg, 1 Memoria 4-18 n Deniz mL, Route: l 23:14: IVP, Drug [place] 00 form: INJ, Q4H, Dosing Weight 91.818, kg, PRN Other -See Comment, Start date: 10/03/12 18:14:00, Duration: 30 day, Stop date: 11/02/12 18:13:00, SBP > 150 mmHg labetalol 2012-0 No [facility] 20 mg, 4 Memoria 4-18 n Deniz mL, Route: l 23:14: IVP, Drug [place] 00 form: INJ, Q15Min, Dosing Weight 91.818, kg, PRN Elevated BP, Start date: 10/03/12 18:14:00, Duration: 3 doses or times, Stop date: 10/04/12 0:00:00, SBP > 150 mmHg hydrALAZINE 2012-0 No [facility] 20 mg, 1 Memoria 4-18 n Deniz mL, Route: l 23:14: IVP, Drug [place] 00 form: INJ, Q4H, Dosing Weight 91.818, [...] Deniz mL, Route: l 23:14: IVP, Drug [place] 00 form: INJ, Q4H, Dosing Weight 91.818, [...] n Deniz 0.5 mL, l 23:04: Route: [place] 00 IVP, Drug form: INJ, Q5Min, PRN [...] n Deniz 0.5 mL, l 23:04: Route: [place] 00 IVP, Drug form: INJ, Q5Min, PRN Narcotic Reversal, Start date: 10/03/12 18:04:00, Duration: 30 day, Stop date: 11/02/12 18:03:00 naloxone 0 No [facility] 0.2 mg, Memoria 4-18 n Deniz 0.5 mL, l 23:04: Route: [place] 00 IVP, Drug form: INJ, Q5Min, PRN Narcotic Reversal, Start date: 10/03/12 18:04:00, Duration: 30 day, Stop date: 11/02/12 18:03:00 naloxone 2013-0 No [facility] 0.2 mg, Memoria 4-18 n Deniz 0.5 mL, l 23:04: Route: [place] 00 IVP, Drug form: INJ, Q5Min, PRN Narcotic Reversal, Start date: 10/03/12 18:04:00, Duration: 30 day, Stop date: 11/02/12 18:03:00 naloxone 0 No [facility] 0.2 mg, Memoria 4-18 n Deniz 0.5 mL, l 23:04: Route: [place] 00 IVP, Drug form: INJ, Q5Min, PRN Narcotic Reversal, Start date: 10/03/12 18:04:00, Duration: 30 day, Stop date: 11/02/12 18:03:00 naloxone No [facility] 0.2 mg, Memoria 4-18 n Deniz 0.5 mL, l 23:04: Route: [place] 00 IVP, Drug form: INJ, Q5Min, PRN [...] n Deniz 0.5 mL, l 23:04: Route: [place] 00 IVP, Drug form: INJ, Q5Min, PRN Narcotic Reversal, Start date: 10/03/12 18:04:00, Duration: 30 day, Stop date: 11/02/12 18:03:00 naloxone 2012-0 No [facility] 0.2 mg, Memoria 4-18 n Deniz 0.5 mL, l 23:04: Route: [place] 00 IVP, Drug form: INJ, Q5Min, PRN Narcotic Reversal, Start date: 10/03/12 18:04:00, Duration: 30 day, Stop date: 11/02/12 18:03:00 naloxone 0 No [facility] 0.2 mg, Memoria 4-18 n Deniz 0.5 mL, l 23:04: Route: [place] 00 IVP, Drug form: INJ, Q5Min, PRN Narcotic Reversal, Start date: 10/03/12 18:04:00, Duration: 30 day, Stop date: 11/02/12 18:03:00 naloxone 0 No [facility] 0.2 mg, Memoria 4-18 n Deniz 0.5 mL, l 23:04: Route: [place] 00 IVP, Drug form: INJ, Q5Min, PRN Narcotic Reversal, Start date: 10/03/12 18:04:00, Duration: 30 day, Stop date: 11/02/12 18:03:00 naloxone 0 No [facility] 0.2 mg, Memoria 4-18 n Deniz 0.5 mL, l 23:04: Route: [place] 00 IVP, Drug form: INJ, Q5Min, PRN [...] n Deniz 0.5 mL, l 23:04: Route: [place] 00 IVP, Drug form: INJ, Q5Min, PRN [...] 4-18 Eng Route: l 22:15: IVP, ONCE, [place] 00 Dosing Weight 91.818, kg, Start date: [...] 4-18 Eng Route: l 22:15: IVP, ONCE, [place] 00 Dosing Weight 91.818, kg, Start date: 10/03/12 17:15:00, Stop date: 10/03/12 17:15:00 hydrALAZINE 2012-0 No Kahlil 20 mg, [facility] 4-18 Eng Route: l 22:15: IVP, ONCE, [place] 00 Dosing Weight 91.818, kg, Start date: 10/03/12 17:15:00, Stop date: 10/03/12 17:15:00 hydrALAZINE 2012-0 No Kahlil 20 mg, [facility] 4-18 Eng Route: l 22:15: IVP, ONCE, [place] 00 Dosing Weight 91.818, kg, Start date: [...] 4-18 Eng Route: l 22:15: IVP, ONCE, [place] 00 Dosing Weight 91.818, kg, Start date: 10/03/12 17:15:00, Stop date: 10/03/12 17:15:00 hydrALAZINE 2012-0 No Kahlil 20 mg, [facility] 4-18 Eng Route: l 22:15: IVP, ONCE, [place] 00 Dosing Weight 91.818, kg, Start date: 10/03/12 17:15:00, Stop date: 10/03/12 17:15:00 hydrALAZINE 2012-0 No Kahlil 20 mg, [facility] 4-18 Eng Route: l 22:15: IVP, ONCE, [place] 00 Dosing Weight 91.818, kg, Start date: 10/03/12 17:15:00, Stop date: 10/03/12 17:15:00 hydrALAZINE 2013-0 No Kahlil 20 mg, [facility] 4-18 Eng Route: l 22:15: IVP, ONCE, [place] 00 Dosing Weight 91.818, kg, Start date: 10/03/12 17:15:00, Stop date: 10/03/12 17:15:00 hydrALAZINE 2013-0 No Kahlil 20 mg, [facility] 4-18 Eng Route: l 22:15: IVP, ONCE, [place] 00 Dosing Weight 91.818, kg, Start date: [...] n Deniz tab, l 21:00: Route: PO, [place] 00 Drug form: TAB, Q8H, Dosing Weight 91.818, kg, Start date: 10/03/12 16:00:00, Duration: 30 day, Stop date: 11/02/12 8:00:00 diazepam 2012-0 No [facility] 5 mg, 1 [facility] 4-18 n Deniz tab, l 21:00: Route: PO, [place] 00 Drug form: TAB, Q8H, Dosing Weight [...] n Deniz tab, l 21:00: Route: PO, [place] 00 Drug form: TAB, Q8H, Dosing Weight 91.818, kg, Start date: 10/03/12 16:00:00, Duration: 30 day, Stop date: 11/02/12 8:00:00 diazepam 2013-0 No [facility] 5 mg, 1 [facility] 4-18 n Deinz tab, l 21:00: Route: PO, [place] 00 Drug form: TAB, Q8H, Dosing Weight 91.818, kg, Start date: 10/03/12 16:00:00, Duration: 30 day, Stop date: 11/02/12 8:00:00 diazepam 2013-0 No [facility] 5 mg, 1 [facility] 4-18 n [place]iz tab, l 21:00: Route: PO, [place] 00 Drug form: TAB, Q8H, Dosing Weight 91.818, kg, Start date: 10/03/12 16:00:00, Duration: 30 day, Stop date: 11/02/12 8:00:00 diazepam 2013-0 No [facility] 5 mg, 1 [facility] 4-18 n [place] tab, l 21:00: Route: PO, [place] 00 Drug form: TAB, Q8H, Dosing Weight 91.818, kg, Start date: 10/03/12 16:00:00, Duration: 30 day, Stop date: 11/02/12 8:00:00 diazepam 2013-0 No [facility] 5 mg, 1 [facility] 4-18 n [place] tab, l 21:00: Route: PO, [place] 00 Drug form: TAB, Q8H, Dosing Weight [...] n Deniz tab, l 21:00: Route: PO, [place] 00 Drug form: TAB, Q8H, Dosing Weight [...] Duration: 30 day, Stop date: 11/02/12 8:00:00 fentanyl 2012-0 No Thelma Jaron 25 Mem [...] & Vomiting, Start date: 10/03/12 15:54:00 promethazin 2013-0 No Kahlil 6.25 mg, Memoria e 4-18 [...] Eng mL, Route: l 20:54: IVP, Drug [place] 00 form: INJ, ONCE, Dosing Weight 91.818, kg, PRN Nausea & Vomiting, Start date: 10/03/12 15:54:00 promethazin 2012- No Kahlil 6.25 mg, Memoria e 4-18 Eng 0.25 mL, l 20:54: Route: [place] 00 IVPB, Drug form: INJ, ONCE, Dosing [...] Eng 0.25 mL, l 20:54: Route: [place] IVPB, Drug form: INJ, ONCE, Dosing Weight [...] Eng 0.25 mL, l 20:54: Route: [place] IVPB, Drug form: INJ, ONCE, Dosing Weight [...] 4-18 Eng 0.1 mL, l 20:54: Route: [place] 00 IVP, Drug form: INJ, Q2MIN, Dosing [...] Start date: 10/03/12 15:54:00 flumazenil 2012- No Kalhil 0.2 mg, 2 Memoria 4-18 Eng mL, [...] 4-18 Eng 0.25 mL, l 20:54: Route: [place] 00 IVPB, Drug form: INJ, ONCE, Dosing [...] 4-18 Eng 0.1 mL, l 20:54: Route: [place] 00 IVP, Drug form: INJ, Q2MIN, Dosing Weight 91.818, kg, PRN Narcotic Reversal, Start date: 10/03/12 15:54:00, Duration: 8 doses or times, Stop date: 10/04/12 0:00:00 fentanyl 2012- No Thelma Jaron 25 Mem oria 4-18 Maisha microgram, l 20:54: 0.5 mL, [place] 00 Route: IVP, Drug form: INJ, Q5Min, [...] 4-18 Eng 0.1 mL, l 20:54: Route: [place] 00 IVP, Drug form: INJ, Q2MIN, Dosing [...] 4-18 Eng 0.25 mL, l 20:54: Route: [place] 00 IVPB, Drug form: INJ, ONCE, Dosing [...] 4-18 Eng 0.1 mL, l 20:54: Route: [place] 00 IVP, Drug form: INJ, Q2MIN, Dosing [...] Eng mL, Route: l 20:54: IVP, Drug [place] 00 form: INJ, PRN, Dosing Weight 91.818, kg, PRN Benzodiaze pine Reversal, Initial dose, Start date: 10/03/12 15:54:00, Duration: 1 day, Stop date: 10/04/12 15:53:00 naloxone 2012-0 No Kahlil 0.04 mg, M emoria 4-18 Eng 0.1 mL, l 20:54: Route: [place] 00 IVP, Drug form: INJ, Q2MIN, Dosing [...] Eng mL, Route: l 20:54: IVP, Drug [place] 00 form: INJ, ONCE, Dosing Weight 91.818, [...] 4-18 Eng 0.1 mL, l 20:54: Route: [place] 00 IVP, Drug form: INJ, Q2MIN, Dosing Weight 91.818, kg, PRN Narcotic Reversal, Start date: 10/03/12 15:54:00, Duration: 8 doses or times, Stop date: 10/04/12 0:00:00 HYDROmorpho No [facility] 15 mg, 30 Memoria ne 0.5mg/mL 4-18 n Deniz mL, Route: l [employer] 17:00: IV, [employer] [place] (15mg/30 00 Dose: 0.3 mL) 15 mg mg, [employer] Lockout: 15 minutes, 4 Hour Limit (In MG): 4.8, Drug Form: INJ, Continuous , Start date: 10/03/12 12:00:00, Stop date: 11/02/12 11:59:00 HYDROmorpho 2013-0 No [facility] 15 mg, 30 Memoria ne 0.5mg/mL 4-18 n Deniz mL, Route: l [employer] 17:00: IV, [employer] [place] (15mg/30 00 Dose: 0.3 mL) 15 mg mg, [employer] Lockout: 15 minutes, 4 Hour Limit (In MG): 4.8, Drug Form: INJ, Continuous , Start date: 10/03/12 12:00:00, Stop date: 11/02/12 11:59:00 HYDROmorpho 2012-0 No [facility] 15 mg, 30 Memoria ne 0.5mg/mL 4-18 n Deniz mL, Route: l [employer] 17:00: IV, [employer] [place] (15mg/30 00 Dose: 0.3 mL) 15 mg mg, [employer] Lockout: 15 minutes, 4 Hour Limit (In MG): 4.8, Drug Form: INJ, Continuous , Start date: 10/03/12 12:00:00, Stop date: 11/02/12 11:59:00 HYDROmorpho 0 No [facility] 15 mg, 30 Memoria ne 0.5mg/mL 4-18 n Deniz mL, Route: l [employer] 17:00: IV, [employer] [place] (15mg/30 00 Dose: 0.3 mL) 15 mg mg, [employer] Lockout: 15 minutes, 4 Hour Limit (In MG): 4.8, Drug Form: INJ, Continuous , Start date: 10/03/12 12:00:00, Stop date: 11/02/12 11:59:00 HYDROmorpho 0 No [facility] 15 mg, 30 Memoria ne 0.5mg/mL 4-18 n Deniz mL, Route: l [employer] 17:00: IV, [employer] [place] (15mg/30 00 Dose: 0.3 mL) 15 mg mg, [employer] Lockout: 15 minutes, 4 Hour Limit (In MG): 4.8, Drug Form: INJ, Continuous , Start date: 10/03/12 12:00:00, Stop date: 11/02/12 11:59:00 HYDROmorpho 0 No [facility] 15 mg, 30 Memoria ne 0.5mg/mL 4-18 n Deniz mL, Route: l [employer] 17:00: IV, [employer] [place] (15mg/30 00 Dose: 0.3 mL) 15 mg mg, [employer] Lockout: 15 minutes, 4 Hour Limit (In MG): 4.8, Drug Form: INJ, Continuous , Start date: 10/03/12 12:00:00, Stop date: 11/02/12 11:59:00 HYDROmorpho 0 No [facility] 15 mg, 30 Memoria ne 0.5mg/mL 4-18 n Deniz mL, Route: l [employer] 17:00: IV, [employer] [place] (15mg/30 00 Dose: 0.3 mL) 15 mg mg, [employer] Lockout: 15 minutes, 4 Hour Limit (In MG): 4.8, Drug Form: INJ, Continuous , Start date: 10/03/12 12:00:00, Stop date: 11/02/12 11:59:00 HYDROmorpho 0 No [facility] 15 mg, 30 Memoria ne 0.5mg/mL 4-18 n Deniz mL, Route: l [employer] 17:00: IV, [employer] [place] (15mg/30 00 Dose: 0.3 mL) 15 mg mg, [employer] Lockout: 15 minutes, 4 Hour Limit (In MG): 4.8, Drug Form: INJ, Continuous , Start date: 10/03/12 12:00:00, Stop date: 11/02/12 11:59:00 HYDROmorpho 0 No [facility] 15 mg, 30 Memoria ne 0.5mg/mL 4-18 n Deniz mL, Route: l [employer] 17:00: IV, [employer] [place] (15mg/30 00 Dose: 0.3 mL) 15 mg mg, [employer] Lockout: 15 minutes, 4 Hour Limit (In MG): 4.8, Drug Form: INJ, Continuous , Start date: 10/03/12 12:00:00, Stop date: 11/02/12 11:59:00 HYDROmorpho 2012-0 No [facility] 15 mg, 30 Memoria ne 0.5mg/mL 4-18 n [place]iz mL, Route: l [employer] 17:00: IV, [employer] [place] (15mg/30 00 Dose: 0.3 mL) 15 mg mg, [employer] Lockout: 15 minutes, 4 Hour Limit (In MG): 4.8, Drug Form: INJ, Continuous , Start date: 10/03/12 12:00:00, Stop date: 11/02/12 11:59:00 HYDROmorpho 2012-0 No [facility] 15 mg, 30 Memoria ne 0.5mg/mL 4-18 n Deniz mL, Route: l [employer] 17:00: IV, [employer] [place] (15mg/30 00 Dose: 0.3 mL) 15 mg mg, [employer] Lockout: 15 minutes, 4 Hour Limit (In MG): 4.8, Drug Form: INJ, Continuous , Start date: 10/03/12 12:00:00, Stop date: 11/02/12 11:59:00 HYDROmorpho 0 No [facility] 15 mg, 30 Memoria ne 0.5mg/mL 4-18 n Deniz mL, Route: l [employer] 17:00: IV, [employer] [place] (15mg/30 00 Dose: 0.3 mL) 15 mg mg, [employer] Lockout: 15 minutes, 4 Hour Limit (In MG): 4.8, Drug Form: INJ, Continuous , Start date: 10/03/12 12:00:00, Stop date: 11/02/12 11:59:00 HYDROmorpho 0 No [facility] 15 mg, 30 Memoria ne 0.5mg/mL 4-18 n Deniz mL, Route: l [employer] 17:00: IV, [employer] [place] (15mg/30 00 Dose: 0.3 mL) 15 mg mg, [employer] Lockout: 15 minutes, 4 Hour Limit (In MG): 4.8, Drug Form: INJ, Continuous , Start date: 10/03/12 12:00:00, Stop date: 11/02/12 11:59:00 HYDROmorpho 0 No [facility] 15 mg, 30 Memoria ne 0.5mg/mL 4-18 n [place]iz mL, Route: l [employer] 17:00: IV, [employer] [place] (15mg/30 00 Dose: 0.3 mL) 15 mg mg, [employer] Lockout: 15 minutes, 4 Hour Limit (In MG): 4.8, Drug Form: INJ, Continuous , Start date: 10/03/12 12:00:00, Stop date: 11/02/12 11:59:00 HYDROmorpho 2012-0 No [facility] 15 mg, 30 Memoria ne 0.5mg/mL 4-18 n Deniz mL, Route: l [employer] 17:00: IV, [employer] [place] (15mg/30 00 Dose: 0.3 mL) 15 mg mg, [employer] Lockout: 15 minutes, 4 Hour Limit (In MG): 4.8, Drug Form: INJ, Continuous , Start date: 10/03/12 12:00:00, Stop date: 11/02/12 11:59:00 HYDROmorpho 2012-0 No [facility] 15 mg, 30 Memoria ne 0.5mg/mL 4-18 n Deniz mL, Route: l [employer] 17:00: IV, [employer] [place] (15mg/30 00 Dose: 0.3 mL) 15 mg mg, [employer] Lockout: 15 minutes, 4 Hour Limit (In MG): 4.8, Drug Form: INJ, Continuous , Start date: 10/03/12 12:00:00, Stop date: 11/02/12 11:59:00 HYDROmorpho No [facility] 15 mg, 30 Memoria ne 0.5mg/mL 4-18 n [place] mL, Route: l [employer] 17:00: IV, [employer] [place] (15mg/30 00 Dose: 0.3 mL) 15 mg mg, [employer] Lockout: 15 minutes, 4 Hour Limit (In MG): 4.8, Drug Form: INJ, Continuous , Start date: 10/03/12 12:00:00, Stop date: 11/02/12 11:59:00 HYDROmorpho 0 No [facility] 15 mg, 30 Memoria ne 0.5mg/mL 4-18 n [place] mL, Route: l [employer] 17:00: IV, [employer] [place] (15mg/30 00 Dose: 0.3 mL) 15 mg mg, [employer] Lockout: 15 minutes, 4 Hour Limit (In MG): 4.8, Drug Form: INJ, Continuous , Start date: 10/03/12 12:00:00, Stop date: 11/02/12 11:59:00 HYDROmorpho 0 No [facility] 15 mg, 30 Memoria ne 0.5mg/mL 4-18 n Deniz mL, Route: l [employer] 17:00: IV, [employer] [place] (15mg/30 00 Dose: 0.3 mL) 15 mg mg, [employer] Lockout: 15 minutes, 4 Hour Limit (In MG): 4.8, Drug Form: INJ, Continuous , Start date: 10/03/12 12:00:00, Stop date: 11/02/12 11:59:00 Saline No [facility] 5 ml, Boy andrés Flush 0.9% 4-18 n Deniz Route: l [...] 11:41:00 Saline No [facility] 5 ml, Boy andrés Flush 0.9% 4-18 n Deniz Route: l 16:42: IVP, Drug [place] 00 Form: INJ, Dosing Weight 91.818, kg, PRN, PRN Line Flush, Start date: 10/03/12 11:42:00, Duration: 30 day, Stop date: 11/02/12 11:41:00 ondansetron 2012- No [facility] 4 mg, 2 Memoria 4-18 n Deniz mL, Route: l 16:42: IVP, Drug [place] 00 form: INJ, Q8H, Dosing Weight 91.818, [...] Saline 2012- No [facility] 5 ml, Boy andrés Flush 0.9% 4-18 n Deniz Route: l 16:42: IVP, Drug [place] 00 Form: INJ, Dosing Weight 91.818, kg, PRN, PRN Line Flush, Start date: 10/03/12 11:42:00, Duration: 30 day, Stop date: 11/02/12 11:41:00 ondansetron 2012- No [facility] 4 mg, 2 Memoria 4-18 n Deniz mL, Route: l 16:42: IVP, Drug [place] 00 form: INJ, Q8H, Dosing Weight 91.818, [...] 11:41:00 Saline No [facility] 5 ml, Boy andrés Flush 0.9% 4-18 n Deniz Route: l 16:42: IVP, Drug [place] 00 Form: INJ, Dosing Weight 91.818, kg, PRN, PRN Line Flush, Start date: 10/03/12 11:42:00, Duration: 30 day, Stop date: 11/02/12 11:41:00 ondansetron No [facility] 4 mg, 2 Memoria 4-18 n Deniz mL, Route: l 16:42: IVP, Drug [place] 00 form: INJ, Q8H, Dosing Weight 91.818, [...] 11:41:00 Saline No [facility] 5 ml, Boy andrés Flush 0.9% 4-18 n Deniz Route: l 16:42: IVP, Drug [place] 00 Form: INJ, Dosing Weight 91.818, kg, PRN, PRN Line Flush, Start date: 10/03/12 11:42:00, Duration: 30 day, Stop date: 11/02/12 11:41:00 ondansetron No [facility] 4 mg, 2 Memoria 4-18 n Deniz mL, Route: l 16:42: IVP, Drug [place] 00 form: INJ, Q8H, Dosing Weight 91.818, [...] 11:41:00 Saline No [facility] 5 ml, Boy andrés Flush 0.9% 4-18 n Deniz Route: l 16:42: IVP, Drug [place] 00 Form: INJ, Dosing Weight 91.818, kg, [...] Deniz 20.3 mL, l 16:42: Route: PO, [place] 00 Drug form: LIQ, Q4H, Dosing Weight [...] 11:41:00 Saline No [facility] 5 ml, Boy andrés Flush 0.9% 4-18 n Deniz Route: l [...] Deniz 20.3 mL, l 16:42: Route: PO, [place] 00 Drug form: LIQ, Q4H, Dosing Weight [...] Sal[place] 2012- No [facility] 5 ml, Boy andrés Flush 0.9% 4-18 n Deniz Route: l 16:42: IVP, Drug [place] 00 Form: INJ, Dosing Weight 91.818, kg, PRN, PRN Line Flush, Start date: 10/03/12 11:42:00, Duration: 30 day, Stop date: 11/02/12 11:41:00 ondansetron 2012- No [facility] 4 mg, 2 Memoria 4-18 n Deniz mL, Route: l 16:42: IVP, Drug [place] 00 form: INJ, Q8H, Dosing Weight 91.818, kg, PRN Nausea & Vomiting, Start date: 10/03/12 11:42:00, Duration: 30 day, Stop date: 11/02/12 11:41:00 acetaminoph No [facility] 650 mg, Memoria en 4-18 n Den[place] 20.3 mL, l 16:42: Route: PO, [place] 00 Drug form: LIQ, Q4H, Dosing Weight [...] 11:41:00 Saline No [facility] 5 ml, Boy andrés Flush 0.9% 4-18 n Deniz Route: l 16:42: IVP, Drug [place] 00 Form: INJ, Dosing Weight 91.818, kg, [...] 11:41:00 Saline No [facility] 5 ml, Boy andrés Flush 0.9% 4-18 n Deniz Route: l 16:42: IVP, Drug [place] 00 Form: INJ, Dosing Weight 91.818, kg, PRN, PRN Line Flush, Start date: 10/03/12 11:42:00, Duration: 30 day, Stop date: 11/02/12 11:41:00 ondansetron No [facility] 4 mg, 2 Memoria 4-18 n Deniz mL, Route: l 16:42: IVP, Drug [place] 00 form: INJ, Q8H, Dosing Weight 91.818, kg, PRN Nausea & Vomiting, Start date: 10/03/12 11:42:00, Duration: 30 day, Stop date: 11/02/12 11:41:00 acetaminoph No [facility] 650 mg, Memoria en 4-18 donna Deniz 20.3 mL, l 16:42: Route: PO, [place] 00 Drug form: LIQ, Q4H, Dosing Weight [...] 11:41:00 Saline No [facility] 5 ml, Boy andrés Flush 0.9% 4-18 donna Deniz Route: l 16:42: IVP, Drug [place] 00 Form: INJ, Dosing Weight 91.818, kg, PRN, PRN Line Flush, Start date: 10/03/12 11:42:00, Duration: 30 day, Stop date: 11/02/12 11:41:00 ondansetron No [facility] 4 mg, 2 Memoria 4-18 n Deniz mL, Route: l 16:42: IVP, Drug [place] 00 form: INJ, Q8H, Dosing Weight 91.818, kg, PRN Nausea & Vomiting, Start date: 10/03/12 11:42:00, Duration: 30 day, Stop date: 11/02/12 11:41:00 acetaminoph No [facility] 650 mg, Memoria en 4-18 n [place] 20.3 mL, l 16:42: Route: PO, [place] 00 Drug form: LIQ, Q4H, Dosing Weight [...] 11:41:00 Saline No [facility] 5 ml, Boy andrés Flush 0.9% 4-18 donna Deniz Route: l 16:42: IVP, Drug [place] 00 Form: INJ, Dosing Weight 91.818, kg, [...] Stop date: 11/02/12 11:41:00 acetaminoph 2012- No [facility] 650 mg, Memoria en 4-18 n Deniz 20.3 mL, l 16:42: Route: PO, [place] 00 Drug form: LIQ, Q4H, Dosing Weight 91.818, kg, PRN Pain 1-3/Temp > 99.5 F, Start date: 10/03/12 11:42:00, Duration: 30 day, Stop date: 11/02/12 11:41:00 acetaminoph 2012- No [facility] 1 tab, Memoria en-hydrocod 4-18 n Deniz Route: PO, l one 325 16:42: Drug Form: Herm robert mg-10 mg 00 TAB, oral tablet Dosing Weight 91.818, kg, Q4H, PRN Pain Score 4-6, Start date: 10/03/12 11:42:00, Duration: 30 day, Stop date: 11/02/12 11:41:00 Saline 2012- No [facility] 5 ml, Boy andrés Flush 0.9% 4-18 n Deniz Route: l 16:42: IVP, Drug [place] Form: INJ, Dosing Weight 91.818, kg, PRN, PRN Line Flush, Start date: 10/03/12 11:42:00, Duration: 30 day, Stop date: 11/02/12 11:41:00 ondansetron 2012-0 No [facility] 4 mg, 2 Memoria 4-18 n Deniz mL, Route: l 16:42: IVP, Drug [place] 00 form: INJ, Q8H, Dosing Weight 91.818, [...] 11:41:00 Saline No [facility] 5 ml, Boy andrés Flush 0.9% 4-18 n Deniz Route: l 16:42: IVP, Drug [place] 00 Form: INJ, Dosing Weight 91.818, kg, [...] Deniz 20.3 mL, l 16:42: Route: PO, [place] 00 Drug form: LIQ, Q4H, Dosing Weight [...] 11:41:00 Saline No [facility] 5 ml, Boy andrés Flush 0.9% 4-18 n Deniz Route: l 16:42: IVP, Drug [place] 00 Form: INJ, Dosing Weight 91.818, kg, PRN, PRN Line Flush, Start date: 10/03/12 11:42:00, Duration: 30 day, Stop date: 11/02/12 11:41:00 ondansetron No [facility] 4 mg, 2 Memoria 4-18 n Deniz mL, Route: l 16:42: IVP, Drug [place] 00 form: INJ, Q8H, Dosing Weight 91.818, kg, PRN Nausea & Vomiting, Start date: 10/03/12 11:42:00, Duration: 30 day, Stop date: 11/02/12 11:41:00 acetaminoph No [facility] 650 mg, Memoria en 4-18 n Deniz 20.3 mL, l 16:42: Route: PO, [place] 00 Drug form: LIQ, Q4H, Dosing Weight [...] 11:41:00 Saline No [facility] 5 ml, Boy andrés Flush 0.9% 4-18 n Deniz Route: l [...] 11:41:00 Saline No [facility] 5 ml, Boy andrés Flush 0.9% 4-18 donna Guaman Route: l 16:42: IVP, Drug [place] 00 Form: INJ, Dosing Weight 91.818, kg, PRN, PRN Line Flush, Start date: 10/03/12 11:42:00, Duration: 30 day, Stop date: 11/02/12 11:41:00 Saline 2013-0 No [facility] 5 ml, Boy andrés Flush 0.9% 4-18 n Deniz Route: l 16:42: IVP, Drug [place] 00 Form: INJ, Dosing Weight 91.818, kg, PRN, PRN Line Flush, Start date: 10/03/12 11:42:00, Duration: 30 day, Stop date: 11/02/12 11:41:00 ondansetron 2012-0 No [facility] 4 mg, 2 Memoria 4-18 n Deniz mL, Route: l 16:42: IVP, Drug [place] 00 form: INJ, Q8H, Dosing Weight 91.818, kg, PRN Nausea & Vomiting, Start date: 10/03/12 11:42:00, Duration: 30 day, Stop date: 11/02/12 11:41:00 acetaminoph 2012-0 No [facility] 650 mg, Memoria en 4-18 n Deniz 20.3 mL, l 16:42: Route: PO, [place] 00 Drug form: LIQ, Q4H, Dosing Weight 91.818, kg, PRN Pain 1-3/Temp > 99.5 F, Start date: 10/03/12 11:42:00, Duration: 30 day, Stop date: 11/02/12 11:41:00 acetaminoph 2012-0 No [facility] 1 tab, Memoria en-hydrocod 4-18 donna Guaman Route: PO, l one 325 16:42: Drug Form: Herm robert mg-10 mg 00 TAB, oral tablet Dosing Weight 91.818, kg, Q4H, PRN Pain Score 4-6, Start date: 10/03/12 11:42:00, Duration: 30 day, Stop date: 11/02/12 11:41:00 ondansetron 2012-0 No [facility] 4 mg, 2 Memoria 4-18 n Deniz mL, Route: l 16:42: IVP, Drug [place] 00 form: INJ, Q8H, Dosing Weight 91.818, kg, PRN Nausea & Vomiting, Start date: 10/03/12 11:42:00, Duration: 30 day, Stop date: 11/02/12 11:41:00 acetaminoph 2012-0 No [facility] 650 mg, Memoria en 4-18 n Deniz 20.3 mL, l 16:42: Route: PO, [place] 00 Drug form: LIQ, Q4H, Dosing Weight [...] 11:41:00 Saline No [facility] 5 ml, Boy andrés Flush 0.9% 4-18 n Deniz Route: l 16:42: IVP, Drug [place] 00 Form: INJ, Dosing Weight 91.818, kg, PRN, PRN Line Flush, Start date: 10/03/12 11:42:00, Duration: 30 day, Stop date: 11/02/12 11:41:00 ondansetron No [facility] 4 mg, 2 Memoria 4-18 n Deniz mL, Route: l 16:42: IVP, Drug [place] form: INJ, Q8H, Dosing Weight 91.818, kg, [...] No Keron 2 gm, 100 Memoria 4-18 Agbbie mL, Route: l 10:00: William IVPB, Drug Herm robert 00 form: INJ, PRE OP, Start date: 10/03/12 5:00:00, Duration: 1 day, Stop date: 10/04/12 4:59:00 NS + KCL 0 No Keron 1,000 mL, M emoria 20mEq/L 10-03 Gabbie Rate: 70 l 1000ml 10:00: William [...] 1 day, Stop date: 10/04/12 4:59:00 cefazolin 2013-0 No Keron 2 gm, 100 Memoria 4-18 Gabbie mL, Route: l 10:00: William ROD, Drug Herm form: INJ, PRE OP, Start date: 10/03/12 5:00:00, Duration: 1 day, Stop date: 10/04/12 4:59:00 Vicodin HP 2012-0 Yes PO, PRN, Mem oria 10 mg-300 4-16 Substituti l mg oral 21:32: on [place] tablet 18 Allowed, Maintenanc e Vicodin HP 2012-0 Yes PO, PRN, Mem oria 10 mg-300 4-16 Substituti l mg oral 21:32: on [place] tablet 18 Allowed, Maintenanc e Vicodin HP 2012-0 Yes PO, PRN, Mem oria 10 mg-300 4-16 Substituti l mg oral 21:32: on [place] tablet 18 Allowed, Maintenanc e Vicodin HP 2012-0 Yes PO, PRN, Mem oria 10 mg-300 4-16 Substituti l mg oral 21:32: on [place] tablet 18 Allowed, Maintenanc e Vicodin HP [...] 4-16 Substituti l mg oral 21:32: on [place] tablet 18 Allowed, Maintenanc e Vicodin HP 2013-0 Yes PO, PRN, Mem oria 10 mg-300 4-16 Substituti l mg oral 21:32: on [place] tablet 18 Allowed, Maintenanc e Vicodin HP 2012-0 Yes PO, PRN, Mem oria 10 mg-300 4-16 Substituti l mg oral 21:32: on [place] tablet 18 Allowed, Maintenanc e Vicodin HP [...] 4-16 Substituti l mg oral 21:32: on [place] tablet 18 Allowed, Maintenanc e Vicodin HP [...] 4-16 Substituti l mg oral 21:32: on [place] tablet 18 Allowed, Maintenanc e Vicodin HP 2012-0 Yes PO, PRN, Mem oria 10 mg-300 4-16 Substituti l mg oral 21:32: on [place] tablet 18 Allowed, Maintenanc e Vicodin HP 2012-0 Yes PO, PRN, Mem oria 10 mg-300 4-16 Substituti l mg oral 21:32: on [place] tablet 18 Allowed, Maintenanc e Vicodin HP 2012-0 Yes PO, PRN, Mem oria 10 mg-300 4-16 Substituti l mg oral 21:32: on [place] tablet 18 Allowed, Maintenanc e Dulcolax 2012-0 Yes 1 supp, Memori a Laxative 4-16 FL, Daily, l 21:32: PRN, 5 02 supp, constipati on, Substituti on Allowed, SUPP Dulcolax 2012-0 Yes 1 supp, Memori a Laxative 4-16 [place], Daily, l 21:32: PRN, 5 02 supp, constipati on, Substituti on Allowed, SUPP Dulcolax 2012-0 Yes 1 supp, Memori a Laxative 4-16 [place], Daily, l 21:32: PRN, 5 [place] 02 supp, constipati on, Substituti on Allowed, SUPP Dulcolax 2012-0 Yes 1 supp, Memori a Laxative 4-16 [place], Daily, l 21:32: PRN, 5 [place] 02 supp, constipati on, Substituti on Allowed, SUPP Dulcolax 2012-0 Yes 1 supp, Memori a Laxative 4-16 [place], Daily, l 21:32: PRN, 5 [place] 02 supp, constipati on, Substituti on Allowed, SUPP Dulcolax 2012-0 Yes 1 supp, Memori a Laxative 4-16 [place], Daily, l 21:32: PRN, 5 [place] 02 supp, constipati on, Substituti on Allowed, SUPP Dulcolax 2012-0 Yes 1 supp, Memori a Laxative 4-16 [place], Daily, l 21:32: PRN, 5 [place] 02 supp, constipati on, Substituti on Allowed, SUPP Dulcolax 2012-0 Yes 1 supp, Memori a Laxative 4-16 [place], Daily, l 21:32: PRN, 5 [place] 02 supp, constipati on, Substituti on Allowed, SUPP Dulcolax 2012-0 Yes 1 supp, Memori a Laxative 4-16 [place], Daily, l 21:32: PRN, 5 [place] 02 supp, constipati on, Substituti on Allowed, SUPP Dulcolax 2012-0 Yes 1 supp, Memori a Laxative 4-16 [place], Daily, l 21:32: PRN, 5 [place] 02 supp, constipati on, Substituti on Allowed, SUPP Dulcolax 2012-0 Yes 1 supp, Memori a Laxative 4-16 [place], Daily, l 21:32: PRN, 5 [place] 02 supp, constipati on, Substituti on Allowed, SUPP Dulcolax 2012-0 Yes 1 supp, Memori a Laxative 4-16 [place], Daily, l 21:32: PRN, 5 [place] 02 supp, constipati on, Substituti on Allowed, SUPP Dulcolax 2012-0 Yes 1 supp, Memori a Laxative 4-16 [place], Daily, l 21:32: PRN, 5 [place] 02 supp, constipati on, Substituti on Allowed, SUPP Dulcolax 2012-0 Yes 1 supp, Memori a Laxative 4-16 [place], Daily, l 21:32: PRN, 5 [place] 02 supp, constipati on, Substituti on Allowed, SUPP Dulcolax 2012-0 Yes 1 supp, [facility] a Laxative 4-16 [place], Daily, l 21:32: PRN, 5 [place] 02 supp, constipati on, Substituti on Allowed, SUPP Dulcolax 2012-0 Yes 1 supp, [facility] a Laxative 4-16 [place], Daily, l 21:32: PRN, 5 [place] 02 supp, constipati on, Substituti on Allowed, SUPP Dulcolax 2012-0 Yes 1 supp, [facility] a Laxative 4-16 [place], Daily, l 21:32: PRN, 5 [place] 02 supp, constipati on, Substituti on Allowed, SUPP Dulcolax 2012-0 Yes 1 supp, [facility] a Laxative 4-16 [place], Daily, l 21:32: PRN, 5 [place] 02 supp, constipati on, Substituti on Allowed, SUPP Dulcolax 2012-0 Yes 1 supp, [facility] a Laxative 4-16 [place], Daily, l 21:32: PRN, 5 [place] 02 supp, constipati on, Substituti on Allowed, SUPP clonidine Yes [facility] PO, QID, [facility] 0.1 mg oral 4-16 n [place] prn l tablet 21:31: bp>160, [place] 30 Substituti on [id number] clonidine Yes [facility] PO, QID, [facility] 0.1 mg oral 4-16 n [place] prn l tablet 21:31: bp>160, [place] 30 Substituti on [id number] clonidine Yes [facility] PO, QID, [facility] 0.1 mg oral 4-16 n [place] prn l tablet 21:31: bp>160, [place] 30 Substituti on [id number] clonidine Yes [facility] PO, QID, [facility] 0.1 mg oral 4-16 n [place] prn l tablet 21:31: bp>160, [place] 30 Substituti on [id number] clonidine Yes [facility] PO, QID, [facility] 0.1 mg oral 4-16 n [place] prn l tablet 21:31: bp>160, [place] 30 Substituti on [id number] clonidine Yes [facility] PO, QID, [place] 0.1 mg oral 4-16 n [place] prn l tablet 21:31: bp>160, [place] 30 Substituti on [id number] clonidine Yes [facility] PO, QID, [place] 0.1 mg oral 4-16 n [place] prn l tablet 21:31: bp>160, [place] 30 Substituti on [id number] clonidine Yes [facility] PO, QID, [facility] 0.1 mg oral 4-16 n [place] prn l tablet 21:31: bp>160, [place] 30 Substituti on [id number] clonidine Yes [facility] PO, QID, [place] 0.1 mg oral 4-16 n [place] prn l tablet 21:31: bp>160, [place] 30 Substituti on [id number] clonidine Yes [facility] PO, QID, [place] 0.1 mg oral 4-16 n [place] prn l tablet 21:31: bp>160, [place] 30 Substituti on [id number] clonidine Yes [facility] PO, QID, [place] 0.1 mg oral 4-16 n [place] prn l tablet 21:31: bp>160, [place] 30 Substituti on [id number] clonidine Yes [facility] PO, QID, [place] 0.1 mg oral 4-16 n [place] prn l tablet 21:31: bp>160, [place] 30 Substituti on [id number] clonidine Yes [facility] PO, QID, [place] 0.1 mg oral 4-16 n [place] prn l tablet 21:31: bp>160, [place] 30 Substituti on [id number] clonidine Yes [facility] PO, QID, [place] 0.1 mg oral 4-16 n [place] prn l tablet 21:31: bp>160, [place] 30 Substituti on [id number] clonidine Yes [facility] PO, QID, [place] 0.1 mg oral 4-16 n [place] prn l tablet 21:31: bp>160, [place] 30 Substituti on [id number] clonidine Yes -Joseo PO, QID, [facility] 0.1 mg oral 4-16 n [place] prn l tablet 21:31: bp>160, [place] 30 Substituti on [id number] clonidine Yes -[facility] PO, QID, [place] 0.1 mg oral 4-16 n [place] prn l tablet 21:31: bp>160, [place] 30 Substituti on [id number] clonidine Yes -[facility] PO, QID, [facility] 0.1 mg oral 4-16 n [place] prn l tablet 21:31: bp>160, [place] 30 Substituti on [id number] clonidine Yes -Joseo PO, QID, [facility] 0.1 mg oral 4-16 n Deniz prn l tablet 21:31: bp>160, [place] 30 Substituti on [id number] Benicar HCT Yes 1 tab, PO, [facility] 12.5 mg-40 4-16 Daily, 30 l mg oral 21:30: tab, [place] tablet 43 Substituti on Allowed, Maintenanc e, [...] Daily, 30 l mg oral 21:30: tab, [place] tablet 43 Substituti on Allowed, Maintenanc e, TAB Benicar HCT Yes 1 tab, PO, [facility] 12.5 mg-40 4-16 Daily, 30 l mg oral 21:30: tab, [place] tablet 43 Substituti on Allowed, Maintenanc e, TAB Benicar HCT Yes 1 tab, PO, [facility] 12.5 mg-40 4-16 Daily, 30 l mg oral 21:30: tab, [place] tablet 43 Substituti on Allowed, Maintenanc e, TAB Benicar HCT Yes 1 tab, PO, [facility] 12.5 mg-40 4-16 Daily, 30 l mg oral 21:30: tab, [place] tablet 43 Substituti on Allowed, Maintenanc e, TAB Benicar HCT Yes 1 tab, PO, [facility] 12.5 mg-40 4-16 Daily, 30 l mg oral 21:30: tab, [place] tablet 43 Substituti on Allowed, Maintenanc e, TAB Benicar HCT Yes 1 tab, PO, [facility] 12.5 mg-40 4-16 Daily, 30 l mg oral 21:30: tab, [place] tablet 43 Substituti on Allowed, Maintenanc e, TAB Benicar HCT Yes 1 tab, PO, [facility] 12.5 mg-40 4-16 Daily, 30 l mg oral 21:30: tab, [place] tablet 43 Substituti on Allowed, Maintenanc e, TAB Benicar HCT Yes 1 tab, PO, [facility] 12.5 mg-40 4-16 Daily, 30 l mg oral 21:30: tab, [place] tablet 43 Substituti on Allowed, Maintenanc e, TAB Benicar HCT Yes 1 tab, PO, [facility] 12.5 mg-40 4-16 Daily, 30 l mg oral 21:30: tab, [place] tablet 43 Substituti on Allowed, Maintenanc e, TAB Benicar HCT Yes 1 tab, PO, [facility] 12.5 mg-40 4-16 Daily, 30 l mg oral 21:30: tab, [place] tablet 43 Substituti on Allowed, Maintenanc e, TAB Benicar HCT Yes 1 tab, PO, [facility] 12.5 mg-40 4-16 Daily, 30 l mg oral 21:30: tab, [place] tablet 43 Substituti on Allowed, Maintenanc e, TAB Benicar HCT Yes 1 tab, PO, [facility] 12.5 mg-40 4-16 Daily, 30 l mg oral 21:30: tab, [place] tablet 43 Substituti on Allowed, Maintenanc e, TAB Benicar HCT Yes 1 tab, PO, [facility] 12.5 mg-40 4-16 Daily, 30 l mg oral 21:30: tab, [place] tablet 43 Substituti on Allowed, Maintenanc e, TAB Benicar HCT Yes 1 tab, PO, [facility] 12.5 mg-40 4-16 Daily, 30 l mg oral 21:30: tab, [place] tablet 43 Substituti on Allowed, Maintenanc e, TAB Benicar HCT Yes 1 tab, PO, [facility] 12.5 mg-40 4-16 Daily, 30 l mg oral 21:30: tab, [place] tablet 43 Substituti on Allowed, Maintenanc e, TAB Benicar HCT Yes 1 tab, PO, [facility] 12.5 mg-40 4-16 Daily, 30 l mg oral 21:30: tab, [place] tablet 43 Substituti on Allowed, Maintenanc e, [...] tab, PO, l tablet 21:30: Q12H, 60 [place] 29 tab, Substituti on Allowed, TAB carvedilol Yes [facility] 25 mg, 1 [facility] 25 mg oral 4-16 n Deniz tab, PO, l tablet 21:30: Q12H, 60 [place] 29 tab, Substituti on Allowed, TAB carvedilol Yes [facility] 25 mg, 1 [facility] 25 mg oral 4-16 n [place] tab, PO, l tablet 21:30: Q12H, 60 [place] 29 tab, Substituti on Allowed, TAB carvedilol Yes [facility] 25 mg, 1 [facility] 25 mg oral 4-16 n [place] tab, PO, l tablet 21:30: Q12H, 60 [place] 29 tab, Substituti on Allowed, TAB carvedilol Yes [facility] 25 mg, 1 [facility] 25 mg oral 4-16 n [place] tab, PO, l tablet 21:30: Q12H, 60 [place] 29 tab, Substituti on Allowed, TAB carvedilol Yes [facility] 25 mg, 1 [facility] 25 mg oral 4-16 n Deniz tab, PO, l tablet 21:30: Q12H, 60 [place] 29 tab, Substituti on Allowed, TAB carvedilol Yes [facility] 25 mg, 1 [facility] 25 mg oral 4-16 n Deniz tab, PO, l tablet 21:30: Q12H, 60 [place] 29 tab, Substituti on Allowed, TAB carvedilol Yes [facility] 25 mg, 1 [facility] 25 mg oral 4-16 n [place]iz tab, PO, l tablet 21:30: Q12H, 60 [place] 29 tab, Substituti on Allowed, TAB carvedilol Yes [facility] 25 mg, 1 [facility] 25 mg oral 4-16 n Deniz tab, PO, l tablet 21:30: Q12H, 60 [place] 29 tab, Substituti on Allowed, TAB carvedilol [...] tab, PO, l tablet 21:30: Q12H, 60 [place] 29 tab, Substituti on Allowed, TAB carvedilol Yes [facility] 25 mg, 1 [facility] 25 mg oral 4-16 n Deniz tab, PO, l tablet 21:30: Q12H, 60 [place] 29 tab, Substituti on Allowed, TAB carvedilol Yes [facility] 25 mg, 1 [facility] 25 mg oral 4-16 n Deniz tab, PO, l tablet 21:30: Q12H, 60 [place] 29 tab, Substituti on Allowed, TAB carvedilol Yes [facility] 25 mg, 1 [facility] 25 mg oral 4-16 n [place] tab, PO, l tablet 21:30: Q12H, 60 [place] 29 tab, Substituti on Allowed, TAB carvedilol Yes [facility] 25 mg, 1 [facility] 25 mg oral 4-16 n Deniz tab, PO, l tablet 21:30: Q12H, 60 [place] 29 tab, Substituti on Allowed, TAB Januvia [...] unit, [facility] 4-16 SUB-Q, l 21:29: Bedtime, [place] 53 Substituti on Allowed Lantus 2012-0 Yes 22 unit, [facility] 4-16 SUB-Q, l 21:29: Bedtime, [place] 53 Substituti on Allowed Lantus 2012-0 Yes 22 unit, [facility] 4-16 SUB-Q, l 21:29: Bedtime, [place] 53 Substituti on Allowed Lantus 2012-0 Yes 22 unit, [facility] 4-16 SUB-Q, l 21:29: Bedtime, [place] 53 Substituti on Allowed Lantus 2012-0 Yes 22 unit, [facility] 4-16 SUB-Q, l 21:29: Bedtime, [place] 53 Substituti on Allowed Lantus 2012-0 Yes 22 unit, [facility] 4-16 SUB-Q, l 21:29: Bedtime, [place] 53 Substituti on Allowed Lantus 2012-0 Yes 22 unit, [facility] 4-16 SUB-Q, l 21:29: Bedtime, [place] 53 Substituti on Allowed Lantus 2012-0 Yes 22 unit, [facility] 4-16 SUB-Q, l 21:29: Bedtime, [place] 53 Substituti on Allowed Lantus 2012-0 Yes 22 unit, [facility] 4-16 SUB-Q, l 21:29: Bedtime, [place] 53 Substituti on Allowed Lantus 2013-0 Yes 22 unit, [facility] 4-16 SUB-Q, l 21:29: Bedtime, [place] 53 Substituti on Allowed Lantus 2013-0 Yes 22 unit, [facility] 4-16 SUB-Q, l 21:29: Bedtime, [place] 53 Substituti on Allowed Lantus 2013-0 Yes 22 unit, [facility] 4-16 SUB-Q, l 21:29: Bedtime, [place] 53 Substituti on Allowed Lantus 2013-0 Yes 22 unit, [facility] 4-16 SUB-Q, l 21:29: Bedtime, [place] 53 Substituti on Allowed Lantus 2013-0 Yes 22 unit, [facility] 4-16 SUB-Q, l 21:29: Bedtime, [place] 53 Substituti on Allowed Lantus 2013-0 Yes 22 unit, [facility] 4-16 SUB-Q, l 21:29: Bedtime, [place] 53 Substituti on Allowed Lantus 2013-0 Yes 22 unit, [facility] 4-16 SUB-Q, l 21:29: Bedtime, [place] 53 Substituti on Allowed Lantus 2013-0 Yes 22 unit, [facility] 4-16 SUB-Q, l 21:29: Bedtime, [place] 53 Substituti on Allowed Lantus 2013-0 Yes 22 unit, [facility] 4-16 SUB-Q, l 21:29: Bedtime, [place] 53 Substituti on Allowed Lantus 2013-0 Yes 22 unit, [facility] 4-16 SUB-Q, l 21:29: Bedtime, [place] 53 Substituti on Allowed glimepiride 2013-0 Yes [...] 4-16 tab, PO, l tablet 21:29: Daily, [place] 45 Substituti on Allowed glimepiride 2013-0 Yes 8 mg, 2 Mem o[facility] 4 mg oral 4-16 tab, PO, l tablet 21:29: Daily, [place] 45 Substituti on Allowed glimepiride glimepiride 2010-06 [...] by other 00:00: tablet RX dic MD WRAD 00 by other Sports MD Miles ramirezmepiride [...] MD WARD 00 by other Sports MD Rajesh Noe No Jentadueto [facility] XR 5 XR 5 [...] IN THE MORNING lisinopril lisinopril No lisinopril [facility] 20 mg 20 mg 20 mg [facility] tablet tablet tablet dic Sports Medicin e Livalo 4 mg Livalo 4 [...] nded ended Medicin release release release e Myrbetriq Myrbetriq No Myrbetriq [facility] 50 mg 50 mg 50 mg [facility] tablet,exte tablet,exte tablet,ext dic nded nded ended Sports release release release Medici n e Novolog Novolog No Novolog [facility] FlexPen FlexPen [...] DAILY DOSE UNITS UNITS IS 50 UNITS omeprazole omeprazole No omeprazole [facility] 40 mg 40 mg 40 mg [facility] capsule,del capsule,del capsule,de dic ayed ayed layed Sports release release release Medici n TAKE 1 TAKE 1 TAKE 1 e CAPSULE BY CAPSULE BY CAPSULE BY MOUTH EVERY MOUTH EVERY MOUTH DAY DAY EVERY DAY ondansetron ondansetron No ondansetro [facility] HCl 4 mg HCl 4 mg n HCl 4 mg O rthope tablet TAKE tablet TAKE tablet dic 1 TABLET BY 1 TABLET BY TAKE 1 Sports MOUTH EVERY MOUTH EVERY TABLET BY Medicin 6 HOURS 6 HOURS MOUTH e NEEDED FOR NEEDED FOR EVERY 6 NAUSEA NAUSEA HOURS NEEDED FOR NAUSEA Accu-Chek Accu-Chek No Accu-Chek [facility] Fior Meter Fior Meter Fior Family Meter Practic e pravastatin pravastatin No pravastati [facility] 20 mg 20 mg n 20 mg [facility] tablet tablet tablet dic Sports Medicin e Accu-Chek Accu-Chek No Accu-Chek [facility] Fior Plus Fior Plus Fior Plus Family test strips test strips test P ractic TEST 3 TEST 3 strips e TIMES A DAY TIMES A DAY TEST 3 DIRECTED DIRECTED TIMES A DAY DIRECTED pregabalin pregabalin No pregabalin [facility] 75 mg 75 mg 75 mg [facility] capsule capsule capsule dic TAKE 1 TAKE 1 TAKE 1 Sports CAPSULES CAPSULES CAPSULES Med icin EVERY EVERY EVERY e MORNING & MORNING & MORNING & TAKE 2 TAKE 2 TAKE 2 CAPSULES BY CAPSULES BY CAPSULES MOUTH AT MOUTH AT BY MOUTH BEDTIME BEDTIME AT BEDTIME Accu-Chek Accu-Chek No Accu-Chek [facility] Fior Plus Fior Plus Fior Plus [facility] test strips test strips test d ic TEST 3 TEST 3 strips Sports TIMES A DAY TIMES A DAY TEST 3 Medicin DIRECTED DIRECTED TIMES A e DAY DIRECTED Accu-Chek Accu-Chek No Accu-Chek [facility] Fastclix Fastclix Fastclix Fam gail Lancet Drum Lancet Drum Lancet Practic USE USE Drum USE e DIRECTED 3 DIRECTED 3 TIMES DAILY TIMES DAILY DIRECTED 3 TIMES DAILY Saline Saline No Saline Arlin Nasal 0.65 Nasal 0.65 Nasal 0.65 [facility] % spray % spray % spray dic aerosol aerosol aerosol Sports Medicin e Accu-Chek Accu-Chek No Accu-Chek [facility] FastClix FastClix FastClix Fam gail Lancing Lancing Lancing Practi c Device Device Device e Soliqua Soliqua No Soliqua Arlin 100/33 [...] UNITS TOTAL DAILY DOSE IS 60 UNITS acetaminoph acetaminoph No acetaminop [place] en 300 en 300 hen 300 Family mg-codeine mg-codeine mg-codeine Practic 60 mg 60 mg 60 mg e tablet TAKE tablet TAKE tablet 1 TABLET BY 1 TABLET BY TAKE 1 MOUTH EVERY MOUTH EVERY TABLET BY 6 HOURS 6 HOURS MOUTH NEEDED NEEDED EVERY 6 HOURS NEEDED trimethopri trimethopri No trimethopr Arlin m 100 mg m 100 mg im 100 mg Or thope tablet tablet tablet dic Sports Medicin e acyclovir acyclovir No acyclovir [place] 800 mg 800 mg 800 mg Family tablet tablet tablet Practic e Trulicity Trulicity No Trulicity [facility] 4.5 mg/0.5 4.5 mg/0.5 4.5 mg/0.5 [facility] mL mL mL dic subcutaneou subcutaneou subcutaneo Sports s pen s pen us pen Medicin injector injector injector e alprazolam alprazolam No alprazolam [facility] 0.25 mg 0.25 mg 0.25 mg Family tablet TAKE tablet TAKE tablet Practic 1 TO 2 1 TO 2 TAKE 1 TO e TABLETS BY TABLETS BY 2 TABLETS MOUTH PRIOR MOUTH PRIOR BY MOUTH TO CT TO CT PRIOR TO SCAN/PET SCAN/PET CT SCAN SCAN SCAN/PET SCAN valsartan valsartan No valsartan [facility] 320 mg 320 mg 320 mg [facility] tablet TAKE tablet TAKE tablet dic 1 TABLET BY 1 TABLET BY TAKE 1 Sports MOUTH EVERY MOUTH EVERY TABLET BY Medicin DAY DAY MOUTH e EVERY DAY acetaminoph acetaminoph No acetaminop Arlin en 300 en 300 hen 300 [facility] mg-codeine mg-codeine mg-codeine dic 60 mg 60 mg 60 mg Sports tablet TAKE tablet TAKE tablet Medicin 1 TABLET BY 1 TABLET BY TAKE 1 e MOUTH EVERY MOUTH EVERY TABLET BY 6 HOURS 6 HOURS MOUTH NEEDED NEEDED EVERY 6 HOURS NEEDED aspirin 81 aspirin 81 No 1 Q1D aspirin 81 [facility] mg mg mg Family tablet,noam tablet,noam tablet,del Practic yed release yed release ayed e Take 1 Take 1 release tablet tablet Take 1 every day every day tablet by oral by oral every day route as route as by oral directed. directed. route as directed. acyclovir acyclovir No acyclovir [facility] 800 mg 800 mg 800 mg [facility] tablet TAKE tablet TAKE tablet dic 1 TABLET BY 1 TABLET BY TAKE 1 Sports MOUTH TWICE MOUTH TWICE TABLET BY Medicin A DAY A DAY MOUTH e TWICE A DAY BD Shaina 2nd BD Shaina 2nd No BD Shaina [place] Gen Pen Gen Pen 2nd Gen Family Needle 32 Needle 32 Pen Needle Practic gauge x gauge x 32 gauge x e " USE " USE " USE DIRECTED DIRECTED 4 TIMES 4 TIMES DIRECTED 4 DAILY DAILY TIMES DAILY Accu-Chek Accu-Chek No Accu-Chek [facility] Fior Meter Fior Meter Fior Orth[facility] Meter dic Sports Medicin e carvedilol carvedilol No carvedilol [facility] 12.5 mg 12.5 mg 12.5 mg Family tablet TAKE tablet TAKE tablet Practic 1 TABLET BY 1 TABLET BY TAKE 1 e MOUTH TWICE MOUTH TWICE TABLET BY A DAY A DAY MOUTH TWICE A DAY Accu-Chek Accu-Chek No Accu-Chek [place] Fastclix Fastclix Fastclix Ort hope Lancet Drum Lancet Drum Lancet dic Drum Sports Medicin e Accu-Chek Accu-Chek No Accu-Chek [place] FastClix FastClix FastClix Ort hope Lancing Lancing Lancing dic Device Device Device Sports Medicin e carvedilol carvedilol No carvedilol [facility] 25 mg 25 mg 25 mg Family tablet TAKE tablet TAKE tablet Practic 1 TABLET BY 1 TABLET BY TAKE 1 e MOUTH TWICE MOUTH TWICE TABLET BY A DAY A DAY MOUTH TWICE A DAY alprazolam alprazolam No alprazolam [facility] 0.25 mg 0.25 mg 0.25 mg Orthop e tablet TAKE tablet TAKE tablet dic 1 TO 2 1 TO 2 TAKE 1 TO Sports TABLETS BY TABLETS BY 2 TABLETS Medicin MOUTH PRIOR MOUTH PRIOR BY MOUTH e TO CT TO CT PRIOR TO SCAN/PET SCAN/PET CT SCAN SCAN SCAN/PET SCAN cinacalcet cinacalcet No cinacalcet [facility] 30 mg 30 mg 30 mg Family tablet TAKE tablet TAKE tablet Practic 1 TABLET BY 1 TABLET BY TAKE 1 e MOUTH TWICE MOUTH TWICE TABLET BY A DAY A DAY MOUTH TWICE A DAY alprazolam alprazolam No alprazolam [facility] 0.25 mg 0.25 mg 0.25 mg Orthop e tablet TAKE tablet TAKE tablet dic 1 TO 2 1 TO 2 TAKE 1 TO Sports TABLETS BY TABLETS BY 2 TABLETS Medicin MOUTH PRIOR MOUTH PRIOR BY MOUTH e TO CT TO CT PRIOR TO SCAN/PET SCAN/PET CT SCAN SCAN SCAN/PET SCAN clonidine clonidine No clonidine [facility] HCl 0.1 mg HCl 0.1 mg HCl 0.1 mg Family tablet 1/2 tablet 1/2 tablet 1/2 Practic TAB THREE TAB THREE TAB THREE e TIMES DAILY TIMES DAILY TIMES DAILY amoxicillin amoxicillin No amoxicilli [facility] [id number] [...] WITH FOOD TIMES A DAY WITH FOOD Appearex Appearex No Appearex Aza maritza [facility] dic Sports Medicin e CoQ-10 200 CoQ-10 200 No CoQ-10 200 [facility] mg mg mg Family Practic e aspirin 81 aspirin 81 No aspirin 81 Arlin mg mg mg [facility] tablet,noam tablet,noam tablet,del dic yed release yed release ayed S ports release Medicin e Estring 2 Estring 2 No Estring 2 Village mg (7.5 mg (7.5 mg (7.5 Family mcg/24 mcg/24 mcg/24 Practic hour) hour) hour) e vaginal vaginal vaginal ring UISE ring UISE ring UISE DIRECTED DIRECTED DIRECTED atorvastati atorvastati No atorvastat Arlin n 40 mg n 40 mg in 40 mg Ortho pe tablet TAKE tablet TAKE tablet dic 1 TABLET BY 1 TABLET BY TAKE 1 Sports MOUTH AT MOUTH AT TABLET BY Me dicin BEDTIME BEDTIME MOUTH AT e BEDTIME BD Shaina 2nd BD Shaina 2nd No BD Shaina [facility] Gen Pen Gen Pen 2nd Gen Orthop e Needle 32 Needle 32 Pen Needle dic gauge x gauge x 32 gauge x Spo rts " USE " USE " USE Medicin DIRECTED DIRECTED e 4 TIMES 4 TIMES DIRECTED 4 DAILY DAILY TIMES DAILY ezetimibe ezetimibe No ezetimibe [place] 10 mg 10 mg 10 mg Family tablet TAKE tablet TAKE tablet Practic 1 TABLET BY 1 TABLET BY TAKE 1 e MOUTH EVERY MOUTH EVERY TABLET BY DAY DAY MOUTH EVERY DAY Brilinta 90 Brilinta 90 No Brilinta Arlin mg tablet mg tablet 90 mg Orth ope tablet dic Sports Medicin e furosemide furosemide No furosemide [facility] 20 mg 20 mg 20 mg Family tablet TAKE tablet TAKE tablet Practic 1 TABLET BY 1 TABLET BY TAKE 1 e MOUTH EVERY MOUTH EVERY TABLET BY DAY DAY MOUTH EVERY DAY carvedilol carvedilol No carvedilol [facility] 12.5 mg 12.5 mg 12.5 mg Orthop e tablet TAKE tablet TAKE tablet dic 1 TABLET BY 1 TABLET BY TAKE 1 Sports MOUTH TWICE MOUTH TWICE TABLET BY Medicin A DAY A DAY MOUTH e TWICE A DAY gabapentin gabapentin No gabapentin [facility] 300 mg 300 mg 300 mg Family capsule capsule capsule Practi c TAKE 1 TAKE 1 TAKE 1 e CAPSULE BY CAPSULE BY CAPSULE BY MOUTH THREE MOUTH THREE MOUTH TIMES A DAY TIMES A DAY THREE TIMES A DAY amlodipine amlodipine No amlodipine [facility] 10 mg 10 mg 10 mg [facility] tablet RX tablet RX tablet RX dic by other MD by other MD by other Sports MD Medicin e cholecalcif cholecalcif No 1000U cholecalci Arlin loren loren ferol [facility] (vitamin (vitamin (vitamin dic D3) 25 mcg D3) 25 mcg D3) 25 mcg Sports (1,000 (1,000 (1,000 Medicin unit) unit) unit) e capsule capsule capsule 1000 units 1000 units 1000 units by oral by oral by oral route. route. route. Humalog Humalog No Humalog Vill[facility] e KwikPen [...] 50 TDD 50 CF 1:30; TDD 50 cinacalcet cinacalcet No cinacalcet [facility] 30 mg 30 mg 30 mg [facility] tablet TAKE tablet TAKE tablet dic 1 TABLET BY 1 TABLET BY TAKE 1 Sports MOUTH TWICE MOUTH TWICE TABLET BY Medicin A DAY A DAY MOUTH e TWICE A DAY hydralazine hydralazine No hydralazin [facility] 25 mg 25 mg e 25 [...] TWICE A DAY hydrocodone hydrocodone No hydrocodon [facility] 5 5 e 5 Family mg-acetamin mg-acetamin mg-acetami Practic ophen 325 ophen 325 nophen 325 e mg tablet mg tablet mg tablet TAKE 1 TAKE 1 TAKE 1 TABLET BY TABLET BY TABLET BY MOUTH EVERY MOUTH EVERY MOUTH 6 HOURS 6 HOURS EVERY 6 NEEDED NEEDED HOURS NEEDED clonidine clonidine No .1mg BID clonidine [facility] HCl 0.1 mg HCl 0.1 mg HCl 0.1 mg [facility] tablet 0.1 tablet 0.1 tablet 0.1 dic mg twice a mg twice a mg twice a Sports day by oral day by oral day by Medicin route. route. oral e route. metFORMIN metFORMIN Yes [place] HCl - 500 HCl - 500 Physi ci MG Oral MG Oral ans Tablet Tablet ID NOW ID NOW No ID NOW [facility] COVID-19 COVID-19 COVID-19 Fam gail Test Kit Test Kit Test Kit Pra ctic TEST TEST TEST e DIRECTED DIRECTED DIRECTED TODAY TODAY TODAY clopidogrel clopidogrel No clopidogre [facility] 75 mg 75 mg l 75 mg [facility] tablet TAKE tablet TAKE tablet dic 1 BY MOUTH 1 BY MOUTH TAKE 1 BY Sports ONCE A DAY ONCE A DAY MOUTH ONCE Medicin A DAY e dicyclomine dicyclomine No dicyclomin [facility] 20 mg 20 mg e 20 mg [facility] tablet TAKE tablet TAKE tablet dic 1 TABLET BY 1 TABLET BY TAKE 1 Sports MOUTH EVERY MOUTH EVERY TABLET BY Medicin 6 HOURS 6 HOURS MOUTH e NEEDED FOR NEEDED FOR EVERY 6 ABDOMINAL ABDOMINAL HOURS CRAMPING CRAMPING NEEDED FOR ABDOMINAL CRAMPING [facility] XR 5 XR 5 XR 5 Family mg-1,000 mg mg-1,000 mg mg-1,000 Practic tablet, tablet, mg tablet, e extended extended extended release release release TAKE 1 TAKE 1 TAKE 1 TABLET BY TABLET BY TABLET BY MOUTH EVERY MOUTH EVERY MOUTH DAY IN THE DAY IN THE EVERY DAY MORNING MORNING IN THE MORNING amoxicillin amoxicillin No amoxicilli [facility] 500 mg 500 mg n 500 mg [facility] capsule capsule capsule dic TAKE 4 TAKE 4 TAKE 4 Sports CAPSULES BY CAPSULES BY CAPSULES Medicin MOUTH I MOUTH I BY MOUTH I e HOUR PRIOR HOUR PRIOR HOUR PRIOR TO DENTAL TO DENTAL TO DENTAL APPOINTMENT APPOINTMENT APPOINTMEN Rogelio Mensah Yes [facility] FlexTouch FlexTouch Physi ci 100 UNIT/ML 100 UNIT/ML a ns Subcutaneou Subcutaneou s Solution s Solution Pen-injecto Pen-injecto r r lisinopril lisinopril No lisinopril [place] 20 mg 20 mg 20 mg Family tablet TAKE tablet TAKE tablet Practic 2 TABLETS 2 TABLETS TAKE 2 e BY MOUTH BY MOUTH TABLETS BY EVERY DAY EVERY DAY MOUTH EVERY DAY escitalopra escitalopra No escitalopr Arlin m 5 mg m 5 mg am 5 mg [facility] tablet TAKE tablet TAKE tablet dic 1 TABLET BY 1 TABLET BY TAKE 1 Sports MOUTH EVERY MOUTH EVERY TABLET BY Medicin DAY WITH DAY WITH MOUTH e BREAKFAST BREAKFAST EVERY DAY WITH BREAKFAST Livalo 4 mg Livalo 4 mg No Livalo 4 Village tablet TAKE tablet TAKE mg tablet Family 1 TABLET BY 1 TABLET BY TAKE 1 Practic MOUTH MOUTH TABLET BY e EVERYDAY AT EVERYDAY AT MOUTH BEDTIME BEDTIME EVERYDAY AT BEDTIME Estring 2 Estring 2 No Estring 2 Arlin mg (7.5 mg (7.5 mg (7.5 Orthop e mcg/24 mcg/24 mcg/24 dic hour) hour) hour) Sports vaginal vaginal vaginal Medici n ring ring ring e ezetimibe ezetimibe No ezetimibe [facility] 10 mg 10 mg 10 mg [facility] tablet TAKE tablet TAKE tablet dic 1 TABLET BY 1 TABLET BY TAKE 1 Sports MOUTH EVERY MOUTH EVERY TABLET BY Medicin DAY DAY MOUTH e EVERY DAY Miralax Miralax No Miralax Vill[facility] e Family Practic e fluconazole fluconazole No fluconazol [facility] 150 mg 150 mg e 150 mg [facility] tablet 1 tablet 1 tablet 1 dic TABLET TABLET TABLET Sports ORALLY NOW, ORALLY NOW, ORALLY Medicin THEN AGAIN THEN AGAIN NOW, THEN e IN 72 HOURS IN 72 HOURS AGAIN IN 4 DAY(S) 4 DAY(S) 72 HOURS 4 DAY(S) nifedipine nifedipine No nifedipine [facility] ER 30 mg ER 30 mg ER 30 mg Fam gail tablet,exte tablet,exte tablet,ext Practic nded nded ended e release release release folic acid folic acid No folic acid [...] Medicin DAY DAY MOUTH e EVERY DAY nifedipine nifedipine No nifedipine [facility] ER 30 mg ER 30 mg ER 30 mg Fam gail tablet,exte tablet,exte tablet,ext Practic nded nded ended e release 24 release 24 release 24 hr TAKE 1 hr TAKE 1 hr TAKE 1 TABLET BY TABLET BY TABLET BY MOUTH EVERY MOUTH EVERY MOUTH DAY DAY EVERY DAY hydralazine hydralazine No hydralazin [facility] 25 mg 25 mg e 25 mg [facility] tablet TAKE tablet TAKE tablet dic 1 TABLET BY 1 TABLET BY TAKE 1 Sports MOUTH THREE MOUTH THREE TABLET BY Medicin TIMES A DAY TIMES A DAY MOUTH e THREE TIMES A DAY Tradjenta 5 Tradjenta 5 Yes U T MG Oral MG Oral Physici Tablet Tablet ans Novolog Novolog No Novolog Vill[facility] e Flexpen [...] TDD CF 1:30 50 50 TDD 50 hydrocodone hydrocodone No hydrocodon Arlin 7.5 7.5 [...] FOR 28 DAYS 28 DAYS 28 DAYS Premarin Premarin No Premarin Perry [...] DAYS 30 DAYS WEEK FOR 30 DAYS amoxicillin amoxicillin No amoxicilli [facility] 500 500 n 500 [facility] mg-potassiu mg-potassiu mg-potassi dic m m um Sports clavulanate clavulanate clavulanat Medicin 125 mg 125 mg e 125 mg e tablet tablet tablet Jardiance Jardiance No Jardiance [facility] 25 mg 25 mg 25 mg [facility] tablet tablet tablet dic Sports Medicin e Soliqua Soliqua No Soliqua Villag e [...] INCREASE INCREASE MORNING DIRECTED DIRECTED INCREASE DIRECTED Trulicity Trulicity Yes [place] 0.75 0.75 Physici MG/0.5ML MG/0.5ML ans Subcutaneou Subcutaneou s Solution s Solution Pen-injecto Pen-injecto r r Jentadueto Jentadueto No Jentadueto Arlin XR 5 XR 5 XR 5 [facility] mg-1,000 mg mg-1,000 mg mg-1,000 dic tablet, tablet, mg tablet, Spo rts extended extended extended Med icin release release release e TAKE 1 TAKE 1 TAKE 1 TABLET BY TABLET BY TABLET BY MOUTH EVERY MOUTH EVERY MOUTH DAY IN THE DAY IN THE EVERY DAY MORNING MORNING IN THE MORNING valsartan valsartan No valsartan [place] 320 mg 320 mg 320 mg Family tablet TAKE tablet TAKE tablet Practic 1 TABLET BY 1 TABLET BY TAKE 1 e MOUTH EVERY MOUTH EVERY TABLET BY DAY DAY MOUTH EVERY DAY lisinopril lisinopril No lisinopril [facility] 20 mg 20 mg 20 mg [facility] tablet tablet tablet dic Sports Medicin e Vitamin D3 Vitamin D3 No Vitamin D3 [facility] Practic e Livalo 4 mg [place]o 4 [...] nded ended Medicin release release release e Accu-Chek Accu-Chek No Accu-Chek [facility] Fior Meter Fior Meter Fior Family Meter Practic e Myrbetriq Myrbetriq No Myrbetriq [facility] 50 mg 50 mg 50 mg [facility] tablet,exte tablet,exte tablet,ext dic nded nded ended Sports release release release Medici n e Accu-Chek Accu-Chek No Accu-Chek [facility] Fior Plus Fior Plus Fior Plus Family test strips test strips test P ractic TEST 3 TEST 3 strips e TIMES A DAY TIMES A DAY TEST 3 DIRECTED DIRECTED TIMES A DAY DIRECTED Novolog Novolog No Novolog [place]lin FlexPen FlexPen [...] DAILY DOSE UNITS UNITS IS 50 UNITS Accu-Chek Accu-Chek No Accu-Chek [facility] Fastclix Fastclix Fastclix Fam gail Lancet Drum Lancet Drum Lancet Practic USE USE Drum USE e DIRECTED 3 DIRECTED 3 TIMES DAILY TIMES DAILY DIRECTED 3 TIMES DAILY omeprazole omeprazole No omeprazole [facility] 40 mg 40 mg 40 mg [facility] capsule,del capsule,del capsule,de dic ayed ayed layed Sports release release release Medici n TAKE 1 TAKE 1 TAKE 1 e CAPSULE BY CAPSULE BY CAPSULE BY MOUTH EVERY MOUTH EVERY MOUTH DAY DAY EVERY DAY amLODIPine amLODIPine Yes [place] Besylate 5 Besylate 5 Phy sici MG Oral MG Oral ans Tablet Tablet ondansetron ondansetron No ondansetro [facility] HCl 4 mg HCl 4 mg n HCl 4 mg O rthope tablet TAKE tablet TAKE tablet dic 1 TABLET BY 1 TABLET BY TAKE 1 Sports MOUTH EVERY MOUTH EVERY TABLET BY Medicin 6 HOURS 6 HOURS MOUTH e NEEDED FOR NEEDED FOR EVERY 6 NAUSEA NAUSEA HOURS NEEDED FOR NAUSEA Accu-Chek Accu-Chek No Accu-Chek [place] FastClix FastClix FastClix Fam gail Lancing Lancing Lancing Practi c Device Device Device e pravastatin pravastatin No pravastati [facility] 20 mg 20 mg n 20 mg [facility] tablet tablet tablet dic Sports Medicin e acetaminoph acetaminoph No acetaminop [place] en 300 en 300 hen 300 Family mg-codeine mg-codeine mg-codeine Practic 60 mg 60 mg 60 mg e tablet TAKE tablet TAKE tablet 1 TABLET BY 1 TABLET BY TAKE 1 MOUTH EVERY MOUTH EVERY TABLET BY 6 HOURS 6 HOURS MOUTH NEEDED NEEDED EVERY 6 HOURS NEEDED pregabalin pregabalin No pregabalin Arlin 75 mg 75 mg 75 mg [facility] capsule capsule capsule dic TAKE 1 TAKE 1 TAKE 1 Sports CAPSULES CAPSULES CAPSULES Med icin EVERY EVERY EVERY e MORNING & MORNING & MORNING & TAKE 2 TAKE 2 TAKE 2 CAPSULES BY CAPSULES BY CAPSULES MOUTH AT MOUTH AT BY MOUTH BEDTIME BEDTIME AT BEDTIME acyclovir acyclovir No acyclovir [place] 800 mg 800 mg 800 mg Family tablet tablet tablet Practic e Saline Saline No Saline Arlin Nasal 0.65 Nasal 0.65 Nasal 0.65 [facility] % spray % spray % spray dic aerosol aerosol aerosol Sports Medicin e Soliqua Soliqua No Soliqua Arlin 100/33 [...] UNITS TOTAL DAILY DOSE IS 60 UNITS alprazolam alprazolam No alprazolam [place] 0.25 mg [...] ONCE DAILY ONCE DAILY DIRECTED ONCE DAILY aspirin 81 aspirin 81 No 1 Q1D aspirin 81 [facility] mg mg mg Family tablet,noam tablet,noam tablet,del Practic yed release yed release ayed e Take 1 Take 1 release tablet tablet Take 1 every day every day tablet by oral by oral every day route as route as by oral directed. directed. route as directed. trimethopri trimethopri No trimethopr Arlin m 100 mg m 100 mg im 100 mg Or thope tablet tablet tablet dic Sports Medicin e Carvedilol Carvedilol Yes UT 25 MG Oral 25 MG Oral Phy sici Tablet Tablet ans Trulicity Trulicity No Trulicity Arlin 4.5 mg/0.5 4.5 mg/0.5 4.5 mg/0.5 [facility] mL mL mL dic subcutaneou subcutaneou subcutaneo Sports s pen s pen us pen Medicin injector injector injector e BD Shaina 2nd BD Shaina 2nd [...] e EVERY DAY budesonide budesonide No budesonide [facility] 1 mg/2 mL 1 mg/2 mL 1 mg/2 mL [facility] suspension suspension suspension Practic for for [...] cream vaginal dic cream Sports Medicin e clindamycin clindamycin No clindamyci [place] 2 % vaginal 2 % vaginal n 2 % Family cream cream vaginal Practic cream e clonidine clonidine No clonidine Arlin HCl 0.1 mg HCl 0.1 mg HCl 0.1 mg [facility] tablet 1/2 tablet 1/2 tablet 1/2 dic TAB THREE TAB THREE TAB THREE Sports TIMES DAILY TIMES DAILY TIMES Medicin DAILY e clonidine clonidine No clonidine [place] HCl 0.1 mg HCl 0.1 mg HCl 0.1 mg Family tablet TAKE tablet TAKE tablet Practic 1 TABLET BY 1 TABLET BY TAKE 1 e MOUTH 3 MOUTH 3 TABLET BY TIMES A DAY TIMES A DAY MOUTH 3 TIMES A DAY Cinacalcet Cinacalcet Yes UT HCl - 30 MG HCl - 30 MG P hysici Oral Tablet Oral Tablet a ns Co Q-10 Co Q-10 No Co Q-10 Arlin (with Vit (with Vit (with Vit [facility] E) 100 mg-5 E) 100 mg-5 E) 100 dic unit unit mg-5 unit Sports capsule RX capsule RX capsule RX Medicin by other MD by other MD by other e CoQ-10 200 CoQ-10 200 No CoQ-10 200 [facility] mg mg mg Family Practic e Crestor 10 Crestor 10 No Crestor 10 Arlin mg tablet mg tablet mg tablet [facility] RX by other RX by other RX by dic MD other Sports Medicin e Estring 2 Estring 2 No Estring 2 [facility] mg (7.5 mg (7.5 mg (7.5 Family mcg/24 mcg/24 mcg/24 Practic hour) hour) hour) e vaginal vaginal vaginal ring UISE ring UISE ring UISE DIRECTED DIRECTED DIRECTED DulcoEase DulcoEase No DulcoEase Arlin 100 mg [...] Medicin DAY DAY MOUTH e EVERY DAY ezetimibe ezetimibe No ezetimibe [place] 10 mg [...] DAY(S) 4 DAY(S) 72 HOURS 4 DAY(S) fluconazole fluconazole No fluconazol [place] 150 mg [...] MOUTH EVERY DAY gabapentin gabapentin No gabapentin [facility]lin 300 mg 300 mg 300 mg [facility] capsule capsule capsule dic TAKE 1 TAKE 1 TAKE 1 Sports CAPSULE BY CAPSULE BY CAPSULE BY Medicin MOUTH THREE MOUTH THREE MOUTH e TIMES A DAY TIMES A DAY THREE TIMES A DAY gabapentin gabapentin No gabapentin [place] 300 [...] A DAY MOUTH e TWICE A DAY hydralazine hydralazine No hydralazin [place] [...] NEEDED NEEDED HOURS NEEDED hydrocodone hydrocodone No hydrocodon [place] 5 5 [...] DIRECTED Med icin TODAY TODAY TODAY e [facility] XR 5 XR 5 XR 5 Family mg-1,000 mg mg-1,000 mg mg-1,000 Practic tablet, tablet, mg tablet, e extended extended extended release release release TAKE 1 TAKE 1 TAKE 1 TABLET BY TABLET BY TABLET BY MOUTH EVERY MOUTH EVERY MOUTH DAY IN THE DAY IN THE EVERY DAY MORNING MORNING IN THE MORNING Lisinopril Lisinopril Yes UT 20 MG Oral 20 MG Oral Phy sici Tablet Tablet ans irbesartan irbesartan No irbesartan Arlin 300 mg 300 mg 300 mg [facility] tablet RX tablet RX tablet RX dic by other MD by other MD by other Sports MD Medicin e lisinopril lisinopril No lisinopril [facility] 20 mg 20 mg 20 mg Family tablet TAKE tablet TAKE tablet Practic 2 TABLETS 2 TABLETS TAKE 2 e BY MOUTH BY MOUTH TABLETS BY EVERY DAY EVERY DAY MOUTH EVERY DAY [facility]lin XR 5 XR 5 XR 5 [...] AT MOUTH BEDTIME BEDTIME EVERYDAY AT BEDTIME Livalo 4 mg Livalo 4 mg No Livalo 4 Arlin tablet TAKE tablet TAKE mg tablet [facility] 1 TABLET BY 1 TABLET BY TAKE 1 dic MOUTH MOUTH TABLET BY Sports EVERYDAY AT EVERYDAY AT MOUTH Medicin BEDTIME BEDTIME EVERYDAY e AT BEDTIME Miralax Miralax No Miralax Villag e Family Practic e metformin metformin No metformin Arlin ER 500 [...] DINNER mupirocin 2 mupirocin 2 No mupirocin [place] % topical % topical 2 % Famil y ointment ointment topical Prac tic ointment e nifedipine nifedipine No nifedipine Arlin ER 30 mg ER 30 mg ER 30 mg Ort hope tablet,exte tablet,exte tablet,ext dic nded nded ended Sports release release release Medici n TAKE 1 TAKE 1 TAKE 1 e TABLET BY TABLET BY TABLET BY MOUTH EVERY MOUTH EVERY MOUTH DAY DAY EVERY DAY nifedipine nifedipine No nifedipine [place] ER 30 [...] TDD CF 1:30 50 50 TDD 50 Novolog Novolog No Novolog Arlin Flexpen Flexpen [...] DAYS TWICE A DAY FOR 30 DAYS nystatin-tr nystatin-tr No nystatin-t [facility] iamcinolone iamcinolone riamcinolo Family 100,000 100,000 [...] 30 WEEK FOR DAYS. DAYS. 30 DAYS. omeprazole omeprazole No omeprazole [place] 20 mg 20 mg 20 mg Family capsule,del capsule,del capsule,de Practic ayed ayed layed e release release release Premarin Premarin No Premarin Aza maritza 0.625 [...] DAYS 30 DAYS WEEK FOR 30 DAYS Premarin Premarin No Premarin Perry benny [...] TWICE A DAY Soliqua Soliqua No Soliqua Villag e 100/33 [...] INCREASE INCREASE MORNING DIRECTED DIRECTED INCREASE DIRECTED Soliqua Soliqua No Soliqua Arlin 100/33 100 [...] DIRECTED INCREASE DIRECTED valsartan valsartan No valsartan [place] 320 mg 320 mg 320 mg Family tablet TAKE tablet TAKE tablet Practic 1 TABLET BY 1 TABLET BY TAKE 1 e MOUTH EVERY MOUTH EVERY TABLET BY DAY DAY MOUTH EVERY DAY Tradjenta 5 Tradjenta 5 No Tradjenta Arlin mg tablet mg tablet 5 mg Ortho pe RX by other RX by other tablet RX dic MD by other Sports MD Medicin e Pravastatin Pravastatin Yes U T Sodium 20 Sodium 20 Physi ci MG Oral MG Oral ans Tablet Tablet Vitamin D3 Vitamin D3 No Vitamin D3 [facility] Family Practic e Tresiba Tresiba No Tresiba Arlin FlexTouch [...] UNITS* DIRECTED *TOTAL DAILY DOSE 50 UNITS* Accu-Chek Accu-Chek No Accu-Chek [facility] Fior Meter Fior Meter Fior Family Meter Practic e Accu-Chek Accu-Chek No Accu-Chek [facility] Fior Plus Fior Plus Fior Plus Family test strips test strips test P ractic TEST 3 TEST 3 strips e TIMES A DAY TIMES A DAY TEST 3 DIRECTED DIRECTED TIMES A DAY DIRECTED Trulicity 3 Trulicity 3 No Trulicity Arlin [...] 90 DAYS. DAYS. DIRECTED FOR 90 DAYS. Accu-Chek Accu-Chek No Accu-Chek [facility] Fastclix Fastclix Fastclix Fam gail Lancet Drum Lancet Drum Lancet Practic USE USE Drum USE e DIRECTED 3 DIRECTED 3 TIMES DAILY TIMES DAILY DIRECTED 3 TIMES DAILY valsartan valsartan No valsartan [facility] 320 mg 320 mg 320 mg [facility] tablet TAKE tablet TAKE tablet dic 1 TABLET BY 1 TABLET BY TAKE 1 Sports MOUTH EVERY MOUTH EVERY TABLET BY Medicin DAY DAY MOUTH e EVERY DAY Accu-Chek Accu-Chek No Accu-Chek [place] FastClix FastClix FastClix Durga gail Lancing Lancing Lancing Pracedin c Device Device Device e Accu-Chek Accu-Chek No Accu-Chek Arlin Fior Plus Fior Plus Fior Plus [facility] test strips test strips test d ic TEST 3 TEST 3 strips Sports TIMES A DAY TIMES A DAY TEST 3 Medicin DIRECTED DIRECTED TIMES A e DAY DIRECTED acetaminoph acetaminoph No acetaminop [place] en 300 en 300 hen 300 Family mg-codeine mg-codeine mg-codeine Practic 60 mg 60 mg 60 mg e tablet TAKE tablet TAKE tablet 1 TABLET BY 1 TABLET BY TAKE 1 MOUTH EVERY MOUTH EVERY TABLET BY 6 HOURS 6 HOURS MOUTH NEEDED NEEDED EVERY 6 HOURS NEEDED acetaminoph acetaminoph No acetaminop Arlin en 300 en 300 hen 300 [facility] mg-codeine mg-codeine mg-codeine dic 60 mg 60 mg 60 mg Sports tablet TAKE tablet TAKE tablet Medicin 1 TABLET BY 1 TABLET BY TAKE 1 e MOUTH EVERY MOUTH EVERY TABLET BY 6 HOURS 6 HOURS MOUTH NEEDED NEEDED EVERY 6 HOURS NEEDED acyclovir acyclovir No acyclovir [place] 800 mg 800 mg 800 mg Family tablet tablet tablet Practic e acyclovir acyclovir No acyclovir Arlin 800 mg 800 mg 800 mg [facility] tablet TAKE tablet TAKE tablet dic 1 TABLET BY 1 TABLET BY TAKE 1 Sports MOUTH TWICE MOUTH TWICE TABLET BY Medicin A DAY A DAY MOUTH e TWICE A DAY alprazolam alprazolam No alprazolam [place] 0.25 mg 0.25 mg 0.25 mg Family tablet TAKE tablet TAKE tablet Practic 1 TO 2 1 TO 2 TAKE 1 TO e TABLETS BY TABLETS BY 2 TABLETS MOUTH PRIOR MOUTH PRIOR BY MOUTH TO CT TO CT PRIOR TO SCAN/PET SCAN/PET CT SCAN SCAN SCAN/PET SCAN alprazolam alprazolam No alprazolam Arlin 0.25 mg [...] by oral directed. directed. route as directed. amlodipine amlodipine No amlodipine [facility]lin 10 mg 10 mg 10 mg [facility] tablet RX tablet RX tablet RX dic by other MD by other MD by other Sports MD Medicin e BD Shaina 2nd BD Shaina 2nd No BD Shaina [place] Gen Pen Gen Pen 2nd Gen Family Needle 32 Needle 32 Pen Needle Practic gauge x gauge x 32 gauge x e " USE " USE " USE DIRECTED DIRECTED 4 TIMES 4 TIMES DIRECTED 4 DAILY DAILY TIMES DAILY amoxicillin amoxicillin No amoxicilli Arlin 500 mg 500 mg n 500 mg [facility] capsule capsule capsule dic TAKE 4 TAKE 4 TAKE 4 Sports CAPSULES BY CAPSULES BY CAPSULES Medicin MOUTH I MOUTH I BY MOUTH I e HOUR PRIOR HOUR PRIOR HOUR PRIOR TO DENTAL TO DENTAL TO DENTAL APPOINTMENT APPOINTMENT APPOINTMEN T budesonide budesonide No budesonide [facility] 1 mg/2 mL 1 mg/2 mL [...] DAILY TWICE DAILY ONCE TO TWICE DAILY Aspirin 81 Aspirin 81 Yes UT MG TABS MG TABS Physici ans amoxicillin amoxicillin No amoxicilli Arlin 500 500 n 500 [facility] mg-potassiu mg-potassiu mg-potassi dic m m um Sports clavulanate clavulanate clavulanat Medicin 125 mg 125 mg e 125 mg e tablet tablet tablet carvedilol carvedilol No carvedilol [facility] 12.5 mg 12.5 mg 12.5 mg Family tablet TAKE tablet TAKE tablet Practic 1 TABLET BY 1 TABLET BY TAKE 1 e MOUTH TWICE MOUTH TWICE TABLET BY A DAY A DAY MOUTH TWICE A DAY BD Shaina 2nd BD Shaina 2nd No BD Shaina Arlin Gen Pen Gen Pen 2nd Gen Orthop e Needle 32 Needle 32 Pen Needle dic gauge x gauge x 32 gauge x Spo rts " USE " USE " USE Medicin DIRECTED DIRECTED e ONCE DAILY ONCE DAILY DIRECTED ONCE DAILY cefixime cefixime No cefixime Perry benny 400 mg 400 mg 400 mg Family capsule capsule capsule Practi c EMPTY 1 EMPTY 1 EMPTY 1 e CAPSULE CAPSULE CAPSULE INTO INTO INTO IRRIGATION IRRIGATION IRRIGATION SYSTEM, ADD SYSTEM, ADD SYSTEM, DISTILLED DISTILLED ADD WATER, WATER, DISTILLED IRRIGATE - IRRIGATE - WATER, TWICE DAILY TWICE DAILY IRRIGATE - TWICE DAILY carvedilol carvedilol No carvedilol Arlin [...] Family cream cream vaginal Practic cream e cinacalcet cinacalcet No cinacalcet Arlin 30 mg [...] A DAY MOUTH 3 TIMES A DAY clindamycin clindamycin No clindamyci Arlin 2 % vaginal 2 % vaginal n 2 % [facility] cream cream vaginal dic cream Sports Medicin e CoQ-10 200 CoQ-10 200 No CoQ-10 200 [facility] mg mg mg Family Practic e clonidine clonidine No clonidine [facility]lin HCl 0.1 mg HCl 0.1 mg HCl 0.1 mg [facility] tablet 1/2 tablet 1/2 tablet 1/2 dic TAB THREE TAB THREE TAB THREE Sports TIMES DAILY TIMES DAILY TIMES Medicin DAILY e Estring 2 Estring 2 No Estring 2 [facility] mg (7.5 mg (7.5 mg (7.5 Family mcg/24 mcg/24 mcg/24 Practic hour) hour) hour) e vaginal vaginal vaginal ring UISE ring UISE ring UISE DIRECTED DIRECTED DIRECTED Co Q-10 Co Q-10 No Co Q-10 Arlin (with Vit (with Vit (with Vit [facility] E) 100 mg-5 E) 100 mg-5 E) 100 dic unit unit mg-5 unit Sports capsule RX capsule RX capsule RX Medicin by other MD by other MD by other e MD ezetimibe ezetimibe No ezetimibe [place] 10 mg [...] HOURS 4 DAY(S) furosemide furosemide No furosemide [facility] 20 mg 20 mg 20 mg Family tablet TAKE tablet TAKE tablet Practic 1 TABLET BY 1 TABLET BY TAKE 1 e MOUTH EVERY MOUTH EVERY TABLET BY DAY DAY MOUTH EVERY DAY gabapentin gabapentin No gabapentin [facility] 300 mg 300 mg 300 mg Family capsule capsule capsule Practi c TAKE 1 TAKE 1 TAKE 1 e CAPSULE BY CAPSULE BY CAPSULE BY MOUTH THREE MOUTH THREE MOUTH TIMES A DAY TIMES A DAY THREE TIMES A DAY hydralazine hydralazine No hydralazin [facility] 25 mg 25 mg e 25 mg Family tablet TAKE tablet TAKE tablet Practic 1 TABLET BY 1 TABLET BY TAKE 1 e MOUTH THREE MOUTH THREE TABLET BY TIMES A DAY TIMES A DAY MOUTH THREE TIMES A DAY hydrocodone hydrocodone No hydrocodon [place] 5 5 e 5 Family mg-acetamin mg-acetamin mg-acetami Practic ophen 325 ophen 325 nophen 325 e mg tablet mg tablet mg tablet TAKE 1 TAKE 1 TAKE 1 TABLET BY TABLET BY TABLET BY MOUTH EVERY MOUTH EVERY MOUTH 6 HOURS 6 HOURS EVERY 6 NEEDED NEEDED HOURS NEEDED Hasmukh Noe No 1 [facility]D [facility] XR 5 XR 5 Family [...] 90 morning days. days. for 90 days. Brilinta 90 Brilinta 90 Yes U T MG Oral MG Oral Physici Tablet Tablet ans lisinopril lisinopril No lisinopril [facility] 20 mg 20 mg 20 mg [...] tic ointment e nifedipine nifedipine No nifedipine [facility] ER 30 mg ER 30 mg [...] 50 TDD 50 nystatin-tr nystatin-tr No nystatin-t [facility] iamcinolone iamcinolone riamcinolo Family 100,000 100,000 [...] directed: TDD 60 valsartan valsartan No valsartan [facility] 320 mg 320 mg 320 mg Family tablet TAKE tablet TAKE tablet Practic 1 TABLET BY 1 TABLET BY TAKE 1 e MOUTH EVERY MOUTH EVERY TABLET BY DAY DAY MOUTH EVERY DAY Vitamin D3 Vitamin D3 No Vitamin D3 [facility] Family Practic e Accu-Chek Accu-Chek No Accu-Chek [facility] Fior Meter Fior Meter Fior Family Meter Practic e Gabapentin Gabapentin Yes UT 300 MG Oral 300 MG Oral P hysici Capsule Capsule ans Accu-Chek Accu-Chek No Accu-Chek [facility] Fior Plus Fior Plus Fior Plus Family test strips test strips test P ractic TEST 3 TEST 3 strips e TIMES A DAY TIMES A DAY TEST 3 DIRECTED DIRECTED TIMES A DAY DIRECTED Accu-Chek Accu-Chek No Accu-Chek [facility] Fastclix Fastclix Fastclix Fam gail Lancet Drum Lancet Drum Lancet Practic USE USE Drum USE e DIRECTED 3 DIRECTED 3 TIMES DAILY TIMES DAILY DIRECTED 3 TIMES DAILY Accu-Chek Accu-Chek No Accu-Chek [facility] FastClix FastClix FastClix Fam gail Lancing Lancing Lancing Practi c Device Device Device e acetaminoph acetaminoph No acetaminop [facility] en 300 en 300 hen 300 Family mg-codeine mg-codeine mg-codeine Practic 60 mg 60 mg 60 mg e tablet TAKE tablet TAKE tablet 1 TABLET BY 1 TABLET BY TAKE 1 MOUTH EVERY MOUTH EVERY TABLET BY 6 HOURS 6 HOURS MOUTH NEEDED NEEDED EVERY 6 HOURS NEEDED acyclovir acyclovir No acyclovir [facility] 800 mg 800 mg 800 mg Family tablet tablet tablet Practic e alprazolam alprazolam No alprazolam [facility] 0.25 mg 0.25 mg 0.25 mg [...] e gauge x gauge x gauge x 5/32" USE 32" USE 532" USE DIRECTED DIRECTED 4 TIMES 4 TIMES DIRECTED 4 DAILY DAILY TIMES DAILY budesonide budesonide No budesonide [facility] 1 mg/2 mL 1 mg/2 mL 1 mg/2 mL [facility] suspension suspension suspension Practic for for [...] TO TWICE DAILY carvedilol carvedilol No carvedilol [facility] 12.5 mg 12.5 mg 12.5 mg [...] - TWICE DAILY cinacalcet cinacalcet No cinacalcet [facility] 30 mg 30 mg 30 mg [...] A DAY MOUTH 3 TIMES A DAY Furosemide Furosemide Yes UT 20 MG Oral 20 MG Oral Phy sici Tablet Tablet ans CoQ-10 200 CoQ-10 200 No CoQ-10 200 [...] HOURS 4 DAY(S) furosemide furosemide No furosemide [place] 20 mg [...] TIMES A DAY hydralazine hydralazine No hydralazin [facility] 25 mg 25 mg e 25 mg Family tablet TAKE tablet TAKE tablet Practic 1 TABLET BY 1 TABLET BY TAKE 1 e MOUTH TWICE MOUTH TWICE TABLET BY A DAY A DAY MOUTH TWICE A DAY hydrocodone hydrocodone No hydrocodon [facility] 5 5 e 5 Family mg-acetamin mg-acetamin mg-acetami Practic ophen 325 ophen 325 nophen 325 e mg tablet mg tablet mg tablet TAKE 1 TAKE 1 TAKE 1 TABLET BY TABLET BY TABLET BY MOUTH EVERY MOUTH EVERY MOUTH 6 HOURS 6 HOURS EVERY 6 NEEDED NEEDED HOURS NEEDED [facility] No [facility] XR 5 XR 5 XR 5 Family mg-1,000 mg mg-1,000 mg mg-1,000 Practic tablet, tablet, mg tablet, e extended extended extended release release release TAKE 1 TAKE 1 TAKE 1 TABLET BY TABLET BY TABLET BY MOUTH EVERY MOUTH EVERY MOUTH DAY IN THE DAY IN THE EVERY DAY MORNING MORNING IN THE MORNING Vitamin D3 Vitamin D3 Yes UT TABS TABS Physici ans lisinopril lisinopril No lisinopril [facility] 20 mg 20 mg 20 mg Family tablet TAKE tablet TAKE tablet Practic 2 TABLETS 2 TABLETS TAKE 2 e BY MOUTH BY MOUTH TABLETS BY EVERY DAY EVERY DAY MOUTH EVERY DAY Livalo 4 mg Livalo 4 mg No Livalo 4 [facility] tablet TAKE tablet TAKE mg tablet [...] tic ointment e nifedipine nifedipine No nifedipine [facility] ER 30 mg ER 30 mg [...] 50 TDD 50 nystatin-tr nystatin-tr No nystatin-t [facility] riainolo Family 100,000 100,000 ne 100,000 [...] FOR 30 DAYS omeprazole omeprazole No omeprazole [facility] 20 mg 20 mg 20 mg [...] DIRECTED INCREASE DIRECTED valsartan valsartan No valsartan [facility] 320 mg 320 mg 320 mg Family tablet TAKE tablet TAKE tablet Practic 1 TABLET BY 1 TABLET BY TAKE 1 e MOUTH EVERY MOUTH EVERY TABLET BY DAY DAY MOUTH EVERY DAY Vitamin D3 Vitamin D3 No Vitamin D3 [facility] Practic e Accu-Chek Accu-Chek No Accu-Chek [facility] Fior Meter Fior Meter Fior Family Meter Practic e Accu-Chek Accu-Chek No Accu-Chek [facility] Fior Plus Fior Plus Fior Plus Family test strips test strips test P ractic TEST 3 TEST 3 strips e TIMES A DAY TIMES A DAY TEST 3 DIRECTED DIRECTED TIMES A DAY DIRECTED Accu-Chek Accu-Chek No Accu-Chek [facility] Fastclix Fastclix Fastclix Fam gail Lancet Drum Lancet Drum Lancet Practic USE USE Drum USE e DIRECTED 3 DIRECTED 3 TIMES DAILY TIMES DAILY DIRECTED 3 TIMES DAILY Accu-Chek Accu-Chek No Accu-Chek [facility] FastClix FastClix FastClix Fam gail Lancing Lancing Lancing Practi c Device Device Device e acetaminoph acetaminoph acetaminop [facility] en 300 en 300 hen 300 Family mg-codeine mg-codeine mg-codeine Practic 60 mg 60 mg 60 mg e tablet TAKE tablet TAKE tablet 1 TABLET BY 1 TABLET BY TAKE 1 MOUTH EVERY MOUTH EVERY TABLET BY 6 HOURS 6 HOURS MOUTH NEEDED NEEDED EVERY 6 HOURS NEEDED acyclovir acyclovir acyclovir [facility] 800 mg 800 mg 800 mg Family tablet tablet tablet Practic e alprazolam alprazolam No alprazolam [facility] 0.25 mg 0.25 mg 0.25 mg [...] DAILY TIMES DAILY budesonide budesonide No budesonide [facility] 1 mg/2 mL 1 mg/2 mL [...] TO TWICE DAILY carvedilol carvedilol No carvedilol [facility] 12.5 mg 12.5 mg 12.5 mg [...] - TWICE DAILY cinacalcet cinacalcet No cinacalcet [facility] 30 mg 30 mg 30 mg Family tablet TAKE tablet TAKE tablet Practic 1 TABLET BY 1 TABLET BY TAKE 1 e MOUTH TWICE MOUTH TWICE TABLET BY A DAY A DAY MOUTH TWICE A DAY clonidine clonidine No clonidine [facility] HCl 0.1 mg HCl 0.1 mg HCl 0.1 mg Family tablet TAKE tablet TAKE tablet Practic 1 TABLET BY 1 TABLET BY TAKE 1 e MOUTH 3 MOUTH 3 TABLET BY TIMES A DAY TIMES A DAY MOUTH 3 TIMES A DAY MiraLax MiraLax Yes UT POWD POWD Physici ans CoQ-10 200 CoQ-10 200 No CoQ-10 200 [place] mg mg mg Family Practic e Estring 2 Estring 2 No Estring 2 [facility] mg (7.5 mg (7.5 mg (7.5 Family mcg/24 mcg/24 mcg/24 Practic hour) hour) hour) e vaginal vaginal vaginal ring UISE ring UISE ring UISE DIRECTED DIRECTED DIRECTED ezetimibe ezetimibe No ezetimibe [facility] 10 mg 10 mg 10 mg Family tablet TAKE tablet TAKE tablet Practic 1 TABLET BY 1 TABLET BY TAKE 1 e MOUTH EVERY MOUTH EVERY TABLET BY DAY DAY MOUTH EVERY DAY fluconazole fluconazole No fluconazol [facility] 150 mg 150 mg e 150 mg Family tablet 1 tablet 1 tablet 1 Pra ctic TABLET TABLET TABLET e ORALLY NOW, ORALLY NOW, ORALLY THEN AGAIN THEN AGAIN NOW, THEN IN 72 HOURS IN 72 HOURS AGAIN IN 4 DAY(S) 4 DAY(S) 72 HOURS 4 DAY(S) furosemide furosemide No furosemide [facility] 20 mg 20 mg 20 mg Family tablet TAKE tablet TAKE tablet Practic 1 TABLET BY 1 TABLET BY TAKE 1 e MOUTH EVERY MOUTH EVERY TABLET BY DAY DAY MOUTH EVERY DAY hydralazine hydralazine No hydralazin [facility] 25 mg 25 mg e 25 mg Family tablet TAKE tablet TAKE tablet Practic 1 TABLET BY 1 TABLET BY TAKE 1 e MOUTH THREE MOUTH THREE TABLET BY TIMES A DAY TIMES A DAY MOUTH THREE TIMES A DAY hydrocodone hydrocodone No [facility] 5 5 e 5 Family mg-acetamin mg-acetamin mg-acetami Practic ophen 325 ophen 325 nophen 325 e mg tablet mg tablet mg tablet TAKE 1 TAKE 1 TAKE 1 TABLET BY TABLET BY TABLET BY MOUTH EVERY MOUTH EVERY MOUTH 6 HOURS 6 HOURS EVERY 6 NEEDED NEEDED HOURS NEEDED hydrocodone hydrocodone No [facility] 7.5 7.5 e 7.5 Family mg-acetamin mg-acetamin mg-acetami Practic ophen 325 ophen 325 nophen 325 e mg tablet mg tablet mg tablet TAKE 1 TAKE 1 TAKE 1 TABLET BY TABLET BY TABLET BY MOUTH EVERY MOUTH EVERY MOUTH 8 HOURS 8 HOURS EVERY 8 NEEDED NEEDED HOU[facility] XR 5 XR 5 XR 5 Family [...] for 90 days. lisinopril lisinopril No lisinopril [facility] 20 mg 20 mg 20 mg Family tablet TAKE tablet TAKE tablet Practic 2 TABLETS 2 TABLETS TAKE 2 e BY MOUTH BY MOUTH TABLETS BY EVERY DAY EVERY DAY MOUTH EVERY DAY Livalo 4 mg Livalo 4 mg No Livalo 4 [facility] tablet TAKE tablet TAKE mg tablet [...] tic ointment e nifedipine nifedipine No nifedipine [facility] ER 30 mg ER 30 mg [...] 50 TDD 50 nystatin-tr nystatin-tr No nystatin-t [facility] iamcinolone iamcinolone riamcinolo Family 100,000 100,000 [...] FOR 30 DAYS omeprazole omeprazole No omeprazole [facility] 20 mg 20 mg 20 mg Family capsule,del capsule,del capsule,de Practic ayed ayed layed e release 1 release 1 release 1 CAPSULE BY CAPSULE BY CAPSULE BY MOUTH MOUTH MOUTH DAILY, 30 DAILY, 30 DAILY, 30 MINUTES MINUTES MINUTES BEFORE BEFORE BEFORE BREAKFAST BREAKFAST BREAKFAST pregabalin pregabalin No 1capsul TID pregabalin [facility] 50 mg 50 mg e(s) 50 mg Family capsule capsule capsule Practi c Take 1 Take 1 Take 1 e capsule 3 capsule 3 capsule 3 times a day times a day times a by oral by oral day by route. route. oral route. pregabalin pregabalin No pregabalin [facility] 75 mg 75 mg 75 mg [...] directed: TDD 60 valsartan valsartan No valsartan [place] 320 mg 320 mg 320 mg Family tablet TAKE tablet TAKE tablet Practic 1 TABLET BY 1 TABLET BY TAKE 1 e MOUTH EVERY MOUTH EVERY TABLET BY DAY DAY MOUTH EVERY DAY Vitamin D3 Vitamin D3 No Vitamin D3 [facility] Practic e Crestor 10 Crestor 10 No Crestor [...] other MD by other Sports MD Miles Salgueroeto Darbytadueto No Darbytadueto Arlin XR 5 XR [...] capsule RX Medicin by other by other by other e Crestor 10 Crestor 10 No Crestor 10 Arlin mg tablet mg tablet mg tablet Orthope RX by other RX by other RX by dic MD MD kathy Skinner DulcoEase DulcoEase No DulcoEase Arlin 100 mg 100 mg 100 mg Orthope capsule RX capsule RX capsule RX dic by other MD by other MD by other Sports MD Aquino e ezetimibe ezetimibe No ezetimibe Arlin 10 [...] other MD by other Sports MD Miles Salgueroeto Darbytadueto No Darbytadueto Arlin XR 5 XR [...] by oral route. BD BD No BD Ariln Ultra-Fine Ultra-Fine Ultra-Fine Orthope Shaina Pen Shaina [...] DAY Accu-Chek Accu-Chek No Accu-Chek Arlin Fior Meter Fior Meter Fior Orthope Meter dic Sports Medicin e Accu-Chek Accu-Chek No Accu-Chek Arlin Fastclix Fastclix Fastclix Ort hope Lancet Drum Lancet Drum Lancet dic Drum Sports Medicin e Accu-Chek Accu-Chek No Accu-Chek Arlin FastClix FastClix FastClix Ort hope Lancing Lancing Lancing dic Device Device Device Sports Medicin e alprazolam alprazolam No alprazolam Arlin 0.25 mg 0.25 mg 0.25 mg Orthop e tablet TAKE tablet TAKE tablet dic 1 TO 2 1 TO 2 TAKE 1 TO Sports TABLETS BY TABLETS BY 2 TABLETS Medicin MOUTH PRIOR MOUTH PRIOR BY MOUTH e TO CT TO CT PRIOR TO SCAN/PET SCAN/PET CT SCAN SCAN SCAN/PET SCAN amoxicillin amoxicillin No amoxicilli Arlin [phone] [...] WITH FOOD TIMES A DAY WITH FOOD Appearex Appearex No Appearex Aza maritza Orthope dic Sports Medicin e aspirin 81 aspirin 81 No aspirin 81 Arlin mg mg mg Orthope tablet,noam tablet,noam tablet,del dic yed release yed release ayed S ports release Medicin e atorvastati atorvastati No atorvastat Arlin n 40 mg n 40 mg in 40 mg Ortho pe tablet TAKE tablet TAKE tablet dic 1 TABLET BY 1 TABLET BY TAKE 1 Sports MOUTH AT MOUTH AT TABLET BY Me dicin BEDTIME BEDTIME MOUTH AT e BEDTIME BD Shaina 2nd BD Shaina 2nd No BD Shaina Arlin Gen Pen Gen Pen 2nd Gen Orthop e Needle 32 Needle 32 Pen Needle dic gauge x gauge x 32 gauge x Spo rts " USE " USE " USE Medicin DIRECTED DIRECTED e 4 TIMES 4 TIMES DIRECTED 4 DAILY DAILY TIMES DAILY Brilinta 90 Brilinta 90 No Brilinta Arlin mg tablet mg tablet 90 mg Orth ope tablet dic Sports Medicin e carvedilol carvedilol No carvedilol Arlin 12.5 mg 12.5 mg 12.5 mg Orthop e tablet TAKE tablet TAKE tablet dic 1 TABLET BY 1 TABLET BY TAKE 1 Sports MOUTH TWICE MOUTH TWICE TABLET BY Medicin A DAY A DAY MOUTH e TWICE A DAY cholecalcif cholecalcif No 1000U cholecalci Arlin loren loren ferol Orthope (vitamin (vitamin (vitamin dic D3) 25 mcg D3) 25 mcg D3) 25 mcg Sports (1,000 (1,000 (1,000 Medicin unit) unit) unit) e capsule capsule capsule 1000 units 1000 units 1000 units by oral by oral by oral route. route. route. cinacalcet cinacalcet No cinacalcet Arlin 30 mg 30 mg 30 mg [facility] tablet TAKE tablet TAKE tablet dic 1 TABLET BY 1 TABLET BY TAKE 1 Sports MOUTH TWICE MOUTH TWICE TABLET BY Medicin A DAY A DAY MOUTH e TWICE A DAY ciprofloxac ciprofloxac No ciprofloxa Arlin in 500 mg in 500 mg ziyad 500 mg Orthope tablet TAKE tablet TAKE tablet dic 1 TABLET BY 1 TABLET BY TAKE 1 Sports MOUTH TWICE MOUTH TWICE TABLET BY Medicin A DAY A DAY MOUTH e TWICE A DAY clonidine clonidine No .1mg BID clonidine Arlin HCl 0.1 mg HCl 0.1 mg HCl 0.1 mg Orthope tablet 0.1 tablet 0.1 tablet 0.1 dic mg twice a mg twice a mg twice a Sports day by oral day by oral day by Medicin route. route. oral e route. clopidogrel clopidogrel No clopidogre Arlin 75 mg 75 mg l 75 mg [facility] tablet TAKE tablet TAKE tablet dic 1 BY MOUTH 1 BY MOUTH TAKE 1 BY Sports ONCE A DAY ONCE A DAY MOUTH ONCE Medicin A DAY e dicyclomine dicyclomine No dicyclomin Arlin 20 mg 20 mg e 20 mg Orthope tablet TAKE tablet TAKE tablet dic 1 TABLET BY 1 TABLET BY TAKE 1 Sports MOUTH EVERY MOUTH EVERY TABLET BY Medicin 6 HOURS 6 HOURS MOUTH e NEEDED FOR NEEDED FOR EVERY 6 ABDOMINAL ABDOMINAL HOURS CRAMPING CRAMPING NEEDED FOR ABDOMINAL CRAMPING escitalopra escitalopra No escitalopr Arlin m 5 mg m 5 mg am 5 mg [facility] tablet TAKE tablet TAKE tablet dic 1 TABLET BY 1 TABLET BY TAKE 1 Sports MOUTH EVERY MOUTH EVERY TABLET BY Medicin DAY WITH DAY WITH MOUTH e BREAKFAST BREAKFAST EVERY DAY WITH BREAKFAST Estring 2 Estring 2 No Estring 2 Arlin mg (7.5 mg (7.5 mg (7.5 Orthop e mcg/24 mcg/24 mcg/24 dic hour) hour) hour) Sports vaginal vaginal vaginal Medici n ring ring ring e ezetimibe ezetimibe No ezetimibe Arlin 10 [...] DAY(S) 4 DAY(S) 72 HOURS 4 DAY(S) folic acid folic acid No folic acid [...] Medicin DAY DAY MOUTH e EVERY DAY hydralazine hydralazine No hydralazin Arlin 25 mg 25 mg e 25 mg [facility]ope tablet TAKE tablet TAKE tablet dic 1 TABLET BY 1 TABLET BY TAKE 1 Sports MOUTH THREE MOUTH THREE TABLET BY Medicin TIMES A DAY TIMES A DAY MOUTH e THREE TIMES A DAY hydrocodone hydrocodone No hydrocodon Arlin 7.5 7.5 [...] FOR 28 DAYS 28 DAYS 28 DAYS Jardiance Jardiance No Jardiance Arlin 25 mg 25 mg 25 mg Orthope tablet tablet tablet dic Sports Medicin e Immunizations Ordered Filled Date Status Comments Source Immunization Name Immunization Name COVID-19, mRNA, COVID-19, mRNA, 2022-03-23 [facility]pleted [facility] L[facility]-S, bivalent LNP-S, bivalent 00:00:00 Prac alaina booster, PF, 30 booster, PF, 30 mcg/0.3 mL dose mcg/0.3 mL dose ([facility]) - ([facility]) ML - ML COVID-19, mRNA, COVID-19, mRNA, 2021-03-25 Completed [facility] LNP-S, PF, 30 LNP-S, PF, 30 00:00:00 Practice mcg/0.3 mL dose mcg/0.3 mL dose (Pfizer-BioNTech) - (Pfizer-BioNTech) ML - ML COVID-19, mRNA, COVID-19, mRNA, [...] mcg/0.3 mL dose (Pfizer-BioNTech) (Pfizer-BioNTech) PFIZER COVID-19 2020-07-15 Completed [facility] VACCINATION 00:00:00 [facility] PFIZER COVID-19 2020-07-15 Completed [facility] VACCINATION 00:00:00 [facility] PFIZER COVID-19 2020-07-15 Completed [facility] VACCINATION 00:00:00 [facility] PFIZER COVID-19 2020-07-15 Completed [facility] VACCINATION 00:00:00 [facility] PFIZER COVID-19 2020-07-15 Completed [facility] VACCINATION 00:00:00 [facility] COVID-19, mRNA, COVID-19, mRNA, 2020-07-15 Completed Azal e[facility] LNP-S, PF, 30 LNP-S, PF, 30 00:00:00 Orthoped ic mcg/0.3 mL dose mcg/0.3 mL dose Spor ts Medicine (Pfizer-BioNTech) (Pfizer-BioNTech) COVID-19, mRNA, COVID-19, mRNA, 2020-07-15 Completed [facility] LNP-S, PF, 30 LNP-S, PF, 30 00:00:00 Practice mcg/0.3 mL dose mcg/0.3 mL dose (Pfizer-BioNTech) - (Pfizer-BioNTech) ML - ML PFIZER COVID-19 2020-06-23 Completed [facility] 00:00:00 Hospital PFIZER COVID-19 2020-06-23 Completed [facility] 00:00:00 Hospital PFIZER COVID-19 2020-06-23 Completed [facility] 00:00:00 Hospital PFIZER COVID-19 2020-06-23 Completed [facility] 00:00:00 Hospital PFIZER COVID-19 2020-06-23 Completed [facility] 00:00:00 Hospital COVID-19, mRNA, COVID-19, mRNA, 2020-06-23 Completed [...] Practice quadrivalent quadrivalent influenza, influenza, 2020-03-27 Completed [facility] Family injectable, injectable, 00:00:00 Practice quadrivalent quadrivalent influenza, influenza, 2020-03-27 Completed [facility] Family injectable, injectable, 00:00:00 Practice quadrivalent quadrivalent PFIZER COVID-19 Unknown Completed [facility] PFIZER COVID-19 Unknown Completed [facility] PFIZER COVID-19 Unknown Completed [facility] PFIZER COVID-19 Unknown Completed [facility] PFIZER COVID-19 Unknown Completed [facility] PFIZER COVID-19 Unknown Completed [facility] PFIZER COVID-19 Unknown Completed [facility] PFIZER COVID-19 Unknown Completed [facility] PFIZER COVID-19 Unknown Completed [facility] PFIZER COVID-19 Unknown Completed [facility] COVID-19, mRNA, COVID-19, mRNA, Unknown Completed Azal ea LNP-S, PF, 30 LNP-S, PF, 30 Orthoped ic mcg/0.3 mL dose mcg/0.3 mL dose Spor ts Medicine (Pfizer-BioNTech) ([employer]-BioNTech) COVID-19, mRNA, COVID-19, mRNA, Unknown Completed Azal ea LNP-S, PF, 30 LNP-S, PF, 30 Orthoped ic mcg/0.3 mL dose mcg/0.3 mL dose Spor ts Medicine (Pfizer-BioNTech) ([employer]-BioNTech) COVID-19, mRNA, COVID-19, mRNA, Unknown Completed Azal ea LNP-S, PF, 30 LNP-S, PF, 30 Orthoped ic mcg/0.3 mL dose mcg/0.3 mL dose Spor ts Medicine (Pfizer-BioNTech) ([employer]-BioNTech) COVID-19, mRNA, COVID-19, mRNA, Unknown Completed Azal ea LNP-S, PF, 30 LNP-S, PF, 30 Orthoped ic mcg/0.3 mL dose mcg/0.3 mL dose Spor ts Medicine (Pfizer-BioNTech) (Pfizer-BioNTech) PFIZER COVID-19 Unknown Completed [facility] PFIZER COVID-19 Unknown Completed [facility] Vital Signs Vital Name [...] Family 00:00:00 Practice Height 2022-09-18 65 [in_i] Ariln 00:00:00 Orthopedic Sports Medicine BP Diastolic 2022-08-22 [...] 2023-03-27 26.74 kg/m2 [facility] 04:00:00 [facility] Heart rate 2023-03-23 72 /min [facility] 09:03:00 [facility] Respiratory rate 2023-03-23 19 /min [facility] 09:[facility]00 [facility] Oxygen saturation 2023-03-23 92 /min [facility] Arterial blood 09:03:00 Medical nter by Pulse oximetry Systolic blood 2023-03-23 128 mm[Hg] [facility] pressure 08:37:00 [facility] Diastolic blood 2023-03-23 45 mm[Hg] [facility] pressure 08:37:00 [facility] Body temperature 2023-03-[address] [facility] 08:37:00 [facility] Body weight 2023-03-[address] [facility] 04:00:00 [facility] BMI 2023-03-23 27.70 kg/m2 [facility] 04:00:00 [facility] Body height 2023-03-[address] [facility] 00:31:00 [facility] Body height 2022-12-13 165.1 cm [facility] 20:07:00 [facility] Body weight 2022-12-13 99.791 kg Muslim 20:07:00 [facility] BMI 2022-12-13 36.61 kg/m2 [facility] 20:07:00 [facility] Systolic blood 2020-01-26 144 mm[Hg] Location: [facility] Physicia ns pressure 14:56:00 Position: Sitting Diastolic blood 2020-01-26 66 mm[Hg] Location: [facility] Physici ans pressure 14:56:00 Position: Sitting Body [...] cians 14:56:00 Temperature Oral 2016-02-14 97.5 F [facility] 21:00:00 Heart Rate 2016-02-14 [facility] [...] [facility] 23:01:00 Heart Rate 2012-10-03 Elvira Ramos n 14:28:00 Heart Rate 2012-10-01 Elvira Ramos n 18:53:00 Height 2012-10-01 165.1 cm Elvira Ramos n 18:53:00 Weight 2012-10-01 Elvira Ramos n 18:53:00 Procedures Procedure Date / Time Performing Clinician Source Performed RADEX SPI LUMBOSAC COMPL 2023-04-30 00:00:00 Falguni salas Orthopedic W/BENDING VIEWS Sports Medicine XR, hip + pelvis, 2023-04-30 00:00:00 Arlin Orrogelio hopedic unilateral, 2 or [address], lumbar spine, w/o 2023-04-30 00:00:00 Arlin Orthopedic contrast Sports Medicine CT, pelvis, w/o contrast 2023-04-30 00:00:00 Falguni salas [facility] POCT-GLUCOSE METER 2023-03-27 17:05:00 [facility] 2023-03-27 13:50:00 [facility] PO[facility]SE [facility] 2023-03-27 11:38[facility] 2023-03-27 11:27:00 [facility] 2023-03-27 08:08:00 [facility] (HEMOGRAM ONLY) 2023-03-27 03:47:00 Carl [facility] MAGNESIUM 2023-03-27 03:47:00 Carl [facility] PHOSPHORUS 2023-03-27 03:47:00 Carl [facility] COMPREHENSIVE METABOLIC 2023-03-27 03:47:00 Jesus [facility] POCT-GLUCOSE METER 2023-03-27 00:53:00 [facility] POCT-GLUCOSE METER 2023-03-26 21:15:00 [facility] POCT-GLUCOSE METER 2023-03-26 17:50:00 Jesus [facility] POCT-GLUCOSE METER 2023-03-26 11:53:00 [facility] POCT-GLUCOSE METER 2023-03-26 07:43:00 [facility] (HEMOGRAM ONLY) 2023-03-26 04:19:00 Carl [facility] BASIC METABOLIC PANEL 2023-03-26 04:19:00 Carl [facility] MAGNESIUM 2023-03-26 04:19:00 Carl [facility] PHOSPHORUS 2023-03-26 04:19:00 Carl [facility] URINALYSIS W/ REFLEX URINE 2023-03-25 23:03:[address] [facility] POCT-GLUCOSE METER 2023-03-25 21:12:00 Jesus [facility] POCT-GLUCOSE METER 2023-03-25 17:38:00 [facility] POCT-GLUCOSE METER 2023-03-25 14:19:00 [facility] POCT-GLUCOSE METER 2023-03-25 08:27:00 Jesus [facility] CBC (HEMOGRAM ONLY) 2023-03-25 05:02:00 Carl [facility] BASIC METABOLIC PANEL 2023-03-25 05:02:00 Carl [facility] MAGNESIUM 2023-03-25 05:02:00 Carl [facility] PHOSPHORUS 2023-03-25 05:02:00 Carl [facility] POCT-GLUCOSE METER 2023-03-24 21:20:00 Jesus [facility] POCT-GLUCOSE METER 2023-03-24 16:19:00 Jesus [facility] XR ABDOMEN/KUB 1 VIEW 2023-03-24 13:54:00 NahumThelma Sonja [facility] POCT-GLUCOSE METER 2023-03-24 12:48:00 [facility] POCT-GLUCOSE METER 2023-03-24 07:56:00 [facility] CBC (HEMOGRAM ONLY) 2023-03-24 03:57:00 Carl [facility] BASIC METABOLIC PANEL 2023-03-24 03:57:00 Carl [facility] MAGNESIUM 2023-03-24 03:57:00 Carl [facility] PHOSPHORUS 2023-03-24 03:57:00 Carl [facility] POCT-GLUCOSE METER 2023-03-23 20:13:00 Jesus [facility] POCT-GLUCOSE METER 2023-03-23 17:00:00 [facility] POCT-GLUCOSE METER 2023-03-23 11:06:00 [facility] POCT-GLUCOSE METER 2023-03-23 06:35:00 [facility] (HEMOGRAM ONLY) 2023-03-23 02:14:00 Carl [facility] BASIC METABOLIC PANEL 2023-03-23 02:14:00 Carl [facility] MAGNESIUM 2023-03-23 02:14:00 Carl [facility] PHOSPHORUS 2023-03-23 02:14:00 Carl [facility] POCT-GLUCOSE METER 2023-03-22 23:19:00 Jesus [facility] POCT-GLUCOSE METER 2023-03-22 20:40:00 Jesus [facility] XR CHEST 1 VIEW PORTABLE / 2023-03-22 13:36:00 Aubrey Henry [facility] POCT-GLUCOSE METER 2023-03-22 13:34:00 Jesus [facility] CBC (HEMOGRAM ONLY) 2023-03-22 12:26:00 [facility] 2023-03-22 [facility] 12:26[facility]23-03-22 12:26:00 [facility] PREPARE RBC 2023-03-22 11:45:00 Tierra [facility] POCT-ACT 2023-03-22 09:49:00 [facility] TRANSCAROTID ARTERY 2023-03-22 07:46:00 Tierra [facility] REVASCULARIZATION (TCAR) [facility] POCT-GLUCOSE METER 2023-03-22 06:45:00 Jesus [facility] ABORH, MANUAL 2023-03-22 00:59:00 Gifty Tate [facility] BASIC METABOLIC PANEL 2023-03-22 00:49:00 Jesus [facility] CBC W/PLT COUNT & AUTO 2023-03-22 00:49:[address] [facility] MAGNESIUM 2023-03-22 00:49:00 Minedin [facility] PHOSPHORUS 2023-03-22 00:49:00 Minedin [facility] PROTHROMBIN TIME/INR 2023-03-22 00:49:00 [facility] APTT 2023-03-22 00:49:00 [facility] TYPE AND SCREEN, AUTOMATED 2023-03-22 00:49:00 Sam Mayorga [facility] CBC W/PLT COUNT & AUTO 2023-03-22 00:49:00 [facility] PO[facility]-GLUCOSE METER 2023-03-21 21:20:00 Estrellitaian [facility] POCT-GLUCOSE METER 2023-03-21 17:38:00 [facility] POCT-GLUCOSE METER 2023-03-21 13:13:00 [facility] CTA BRAIN 2023-03-21 12:30:00 Minami [facility] CTA CAROTID 2023-03-21 12:30:00 Minedin [facility] POCT-GLUCOSE METER 2023-03-21 08:37:00 [facility] BASIC METABOLIC PANEL 2023-03-21 03:54:00 Jessica [facility] MAGNESIUM 2023-03-21 03:54:00 Jessica [facility] CBC W/PLT COUNT & AUTO 2023-03-21 03:54:00 [facility] CBC W/PLT COUNT & AUTO 2023-03-21 03:54:00 [facility] POCT-GLUCOSE METER 2023-03-20 22:17:00 Jesus [facility] MISCELLANEOUS LAB ORDER 2023-03-20 17:19:00 Asia Segovia [facility] POCT-GLUCOSE METER 2023-03-20 16:47:00 Luca [facility] ECHO W CONTRAST & DOPPLER 2023-03-20 15:44:00 Linda Castaneda [facility] URINALYSIS W/ MICROSCOPIC 2023-03-20 13:01:00 Asia Segovia [facility] POCT-GLUCOSE METER 2023-03-20 12:02:00 Asia Segovia [facility] XR CHEST 1 VIEW PORTABLE / 2023-03-20 11:43:[address] [facility] BRAIN WITHOUT IV 2023-03-20 09:24:00 Luca, [facility] POCT-GLUCOSE METER 2023-03-20 07:31:00 [facility] 2023-03-20 04:11:00 Jessica [facility] MAGNESIUM 2023-03-20 04:11[facility]00 [facility]O 2023-03-20 [facility] 2023-03-20 04:11[facility]00 [facility] CAR[facility]PL[facility] BILATERAL 2023-03-19 21:39:00 Ted Felton [facility] POCT-GLUCOSE METER 2023-03-19 20:33:00 [facility] EEG AWAKE/ASLEEP AND SLEEP 2023-03-19 17:00:46 Florian Mei [facility] POCT-GLUCOSE METER 2023-03-19 16:58:00 [facility] MET[facility]OLIC PANEL 2023-03-19 12:32:00 Jessiac [facility] MAGNESIUM 2023-03-19 12:32:00 [facility]SE METER 2023-03-19 11:08:00 [facility]-GLUCOSE METER 2023-03-19 08:25:00 [facility] METABOLIC PANEL 2023-03-19 03:48:00 Jessica [facility] MAGNESIUM 2023-03-19 03:48:00 [facility] W/[facility]T [facility] & AUTO 2023-03-19 03:48:00 [facility] KETONE, BLOOD 2023-03-19 03:48:00 [facility] W/PLT COUNT & AUTO 2023-03-19 03:48:00 Wm Lopez [facility] LAB HIV-1 AG W/HIV-1&2 2023-03-19 00:38:00 Viki Castanedana [facility] VITAMIN B12 2023-03-19 00:38:00 [facility] RPR 2023-03-19 00:38:00 [facility] HEMOGLOBIN A1C 2023-03-19 00:38:00 [facility] LIPID PANEL 2023-03-19 00:38:00 [facility] C-REACTIVE PROTEIN 2023-03-19 00:38:00 [facility] TSH/FREE T4 IF INDICATED 2023-03-19 00:38:00 [facility] EKG-SCANNED 2023-03-18 00:00:00 Provider, LIPID PANEL 2022-09-26 00:00:00 Provider, Not In [facility] XR, shoulder, 2 or more 2022-09-18 00:00:00 Dickson ervin [facility] view [facility] XR, knee, 3 view 2022-09-18 00:00:00 Arlin Damico opedic Sports Medicine EXTERNAL PROVIDER RECORDS 2022-08-28 05:01:00 Doctor Unassigned, [facility] ASSIGNMENT OF BENEFITS 2022-08-04 15:37:10 Doctor Unassigned, [facility] PHYSICIAN ORDERS 2022-07-25 06:01:00 Doctor Unassigned, [facility] XR, hip + pelvis, 2022-03-09 00:00:00 Arlin perezdinica unilateral, 4 or more view Sport s [...] Arlin Orthoped ic Sports Medicine Operation <sup>1</sup> [facility] Cervical discectomy [facility] [place] [facility] replacement<sup>1</sup> Operation<sup>2</sup> [facility] Plan of Care Planned Activity Planned Date [...] Future Scheduled Test 2023-04-30 SHINGLES VACCINES (1 [facility] 16:50:15 of 2) [code = SHINGLES VACCINES (1 of 2)] Future Scheduled Test 2023-04-30 65+ PNEUMOCOCCAL [facility] 16:50:15 VACCINE (2 - PCV) [code = 65+ PNEUMOCOCCAL VACCINE (2 - PCV)] Future Scheduled Test 2023-04-30 COVID-19 VACCINE ([address] [place] [address] 16:50:15 season) [code = COVID-19 VACCINE ()] Future Scheduled Test 2023-04-30 INFLUENZA VACCINE [facility] 16:50:15 (#1) [code = INFLUENZA VACCINE (#1)] Future Scheduled Test 2023-04-30 SHINGLES VACCINES (1 [facility] 16:50:15 of 2) [code = SHINGLES VACCINES (1 of 2)] Future Scheduled Test 2023-04-30 65+ PNEUMOCOCCAL [facility] 16:50:15 VACCINE (2 - PCV) [code = 65+ PNEUMOCOCCAL VACCINE (2 - PCV)] Future Scheduled Test 2023-04-30 COVID-19 VACCINE ([address] [place] [address] 16:50:15 season) [code = COVID-19 VACCINE ()] Future Scheduled Test 2023-04-30 INFLUENZA VACCINE [facility] 16:50:15 (#1) [code = INFLUENZA VACCINE (#1)] Future Scheduled Test 2023-04-30 SHINGLES VACCINES (1 [facility] 16:50:15 of 2) [code = SHINGLES VACCINES (1 of 2)] Future Scheduled Test 2023-04-30 65+ PNEUMOCOCCAL [facility] 16:50:15 VACCINE (2 - PCV) [code = 65+ PNEUMOCOCCAL VACCINE (2 - PCV)] Future Scheduled Test 2023-04-30 COVID-19 VACCINE ([address] [place] [address] 16:50:15 season) [code = COVID-19 VACCINE ( season)] Future Scheduled Test 2023-04-30 INFLUENZA VACCINE [facility] 16:50:15 (#1) [code = INFLUENZA VACCINE (#1)] Future Scheduled Test 2023-04-30 SHINGLES VACCINES (1 [facility] 16:50:15 of 2) [code = SHINGLES VACCINES (1 of 2)] Future Scheduled Test 2023-04-30 65+ PNEUMOCOCCAL [facility] 16:50:15 VACCINE (2 - PCV) [code = 65+ PNEUMOCOCCAL VACCINE (2 - PCV)] Future Scheduled Test 2023-04-30 COVID-19 VACCINE (4 - [facility] 16:50:15 season) [code = COVID-19 VACCINE ( - season)] Future Scheduled Test 2023-04-30 INFLUENZA VACCINE [facility] 16:50:15 (#1) [code = INFLUENZA VACCINE (#1)] Future Scheduled Test 2023-03-[address] [facility] 00:00[facility]00 [facility] (procedure) [code = 50261354] Future Scheduled Test 2023-03-[address] [facility] 00[facility]00 [facility] (procedure) [code = 17117111] Future Scheduled Test 2023-03-[address] [facility] 00:00[facility]00 [facility] (procedure) [code = 08678283] Future Scheduled Test 2023-03-[address] [facility] 00:00:00 [facility] (procedure) [code = 34970534] Future Scheduled Test 2023-03-[address] [facility] 00:00[facility]00 [facility] (procedure) [code = 78896280] Future Scheduled Test 2023-03-[address] [facility] 00:00[facility]00 [facility] (procedure) [code = 48172658] Future Scheduled Test 2023-03-[address] [facility] 00:00:00 [facility] (procedure) [code = 59463441] Future Scheduled Test 2023-03-[address] [facility] 00:00:00 [facility] (procedure) [code = 59895290] Future Scheduled Test 2023-02-21 SHINGLES VACCINES (1 [facility] [facility] 12:53:00 of 2) [code = SHINGLES VACCINES (1 of 2)] Future Scheduled Test 2023-02-21 COVID-19 VACCINE (4 - [facility] 12:53:00 Pfizer series) [code = COVID-19 VACCINE (4 - Pfizer series)] Future Scheduled Test 2023-02-21 65+ PNEUMOCOCCAL [facility] 12:53:00 VACCINE (2 - PCV) [code = 65+ PNEUMOCOCCAL VACCINE (2 - PCV)] Future Scheduled Test 2023-02-21 INFLUENZA VACCINE [facility] 12:53:00 (#1) [code = INFLUENZA VACCINE (#1)] Future Scheduled Test 2023-02-21 SHINGLES VACCINES (1 [facility] 12:53:00 of 2) [code = SHINGLES VACCINES (1 of 2)] Future Scheduled Test 2023-02-21 COVID-19 VACCINE (4 - [facility] 12:53:00 Pfizer series) [code = COVID-19 VACCINE (4 - Pfizer series)] Future Scheduled Test 2023-02-21 65+ PNEUMOCOCCAL Me [facility] 12:53:00 VACCINE (2 - PCV) [code = 65+ PNEUMOCOCCAL VACCINE (2 - PCV)] Future Scheduled Test 2023-02-21 INFLUENZA VACCINE [facility] 12:53:00 (#1) [code = INFLUENZA VACCINE (#1)] [...] Future Scheduled Test 2023-01-17 SHINGLES VACCINES (1 [facility] 15:59:24 of 2) [code = SHINGLES VACCINES (1 of 2)] Future Scheduled Test 2023-01-17 COVID-19 VACCINE (4 [facility] 15:59:24 Pfizer series) [code = COVID-19 VACCINE (4 - Pfizer series)] Future Scheduled Test 2023-01-17 65+ PNEUMOCOCCAL [facility] 15:59:24 VACCINE (2 - PCV) [code = 65+ PNEUMOCOCCAL VACCINE (2 - PCV)] Future Scheduled Test 2023-01-17 INFLUENZA VACCINE [facility] 15:59:24 [code = INFLUENZA VACCINE] Future Scheduled Test 2023-01-12 SHINGLES VACCINES (1 [facility] 14:53:49 of 2) [code = SHINGLES VACCINES (1 of 2)] Future Scheduled Test 2023-01-12 COVID-19 VACCINE ([address] [place] [address] 14:53:49 Pfizer series) [code = COVID-19 VACCINE (4 - Pfizer series)] Future Scheduled Test 2023-01-12 65+ PNEUMOCOCCAL [facility] 14:53:49 VACCINE (2 - PCV) [code = 65+ PNEUMOCOCCAL VACCINE (2 - PCV)] Future Scheduled Test 2023-01-12 INFLUENZA VACCINE [facility] 14:53:49 [code = INFLUENZA VACCINE] Future Scheduled Test 2022-12-16 SHINGLES VACCINES (1 [facility] 12:11:42 of 2) [code = SHINGLES VACCINES (1 of 2)] Future Scheduled Test 2022-12-16 COVID-19 VACCINE ([address] [place] [address] 12:11:42 Pfizer series) [code = COVID-19 VACCINE (4 - Pfizer series)] Future Scheduled Test 2022-12-16 65+ PNEUMOCOCCAL [facility] 12:11:42 VACCINE (2 - PCV) [code = 65+ PNEUMOCOCCAL VACCINE (2 - PCV)] Future Scheduled Test 2022-12-16 INFLUENZA VACCINE [facility] 12:11:42 [code = INFLUENZA VACCINE] Diagnostic Test 2022-11-24 glucose, fingerstick, [facility] Pending 00:00:00 blood [code = Practice glucose, fingerstick, blood] Future Scheduled Test 2022-09-07 SHINGLES VACCINES (1 [facility] 11:04:32 of 2) [code = SHINGLES VACCINES (1 of 2)] Future Scheduled Test 2022-09-07 COVID-19 VACCINE (3 [facility] 11:04:32 Booster for Pfizer series) [code = COVID-19 VACCINE (3 - Booster for Pfizer series)] Future Scheduled Test 2022-09-07 INFLUENZA VACCINE [facility] 11:04:32 [code = INFLUENZA VACCINE] Future Scheduled Test 2022-09-07 65+ PNEUMOCOCCAL [facility] 11:04:32 VACCINE (2 - PCV) [code = 65+ PNEUMOCOCCAL VACCINE (2 - PCV)] Future Scheduled Test 2022-07-13 SHINGLES VACCINES (1 [facility] 16:05:49 of 2) [code = SHINGLES VACCINES (1 of 2)] Future Scheduled Test 2022-07-13 COVID-19 VACCINE ([address] [place] [address] 16:05:49 Booster for Pfizer series) [code = COVID-19 VACCINE (3 - Booster for Pfizer series)] Future Scheduled Test 2022-07-13 INFLUENZA VACCINE [facility] 16:05:49 [code = INFLUENZA VACCINE] Future Scheduled Test 2022-07-13 65+ PNEUMOCOCCAL [facility] 16:05:49 VACCINE (2 - PCV) [code = [...] 00:00:00 examination Medical Center (regime/therapy) [code = 026403522] Future Scheduled Test 1951-12-13 Urine screening for [facility] 00:00:00 protein (procedure) Medical Center [code = 799665165] Future Scheduled Test 1951-12-13 DIABETIC EYE EXAM [facility] 00:00:00 [code = DIABETIC EYE Medical Center EXAM] Future Scheduled Test 1951-12-13 Diabetic foot [facility] 00:[facility]:00 examination Medical Center (regime/therapy) [code = 376203007] Future Scheduled Test 1951-12-13 Urine screening for [facility] 00:00:00 protein (procedure) Medical Center [code = 916746608] Future Scheduled Test 1951-12-13 DIABETIC EYE EXAM [facility] 00:00:00 [code = DIABETIC EYE Medical Center EXAM] Future Scheduled Test 1951-12-13 Diabetic foot [facility] 00:00:00 examination Medical Center (regime/therapy) [code = 942370710] Future Scheduled Test 1951-12-13 Urine screening for [facility] 00:00:00 protein (procedure) Medical Center [code = 047695106] Future Scheduled Test 1951-12-13 DIABETIC EYE EXAM [facility] 00:00:00 [code = DIABETIC EYE Medical Center EXAM] Future Scheduled Test 1951-12-13 Diabetic foot [facility] 00:00:00 examination Medical Center (regime/therapy) [code = 377387346] Future Scheduled Test 1951-12-13 Urine screening for [facility] 00:00:00 protein (procedure) Medical Center [code = 525206259] Future Scheduled Test 1951-12-13 DIABETIC EYE EXAM [facility] 00:00:00 [code = DIABETIC EYE Medical Center EXAM] Future Scheduled Test 1951-12-13 Diabetic foot [facility] 00:00:00 examination Medical Center (regime/therapy) [code = 346115266] Future Scheduled Test 1951-12-13 Urine screening for [facility] 00:00:00 protein (procedure) Medical Center [code = 144041836] Future Scheduled Test 1951-12-13 DIABETIC EYE EXAM [facility] 00:00:00 [code = DIABETIC EYE Medical Center EXAM] Future Scheduled Test 1951-12-13 Diabetic foot [facility] 00:00:00 examination Medical Center (regime/therapy) [code = 458094221] Future Scheduled Test 1951-12-13 Urine screening for [facility] 00:00:00 protein (procedure) Medical Center [code = 903531379] Future Scheduled Test 1951-12-13 DIABETIC EYE EXAM [facility] 00:00:00 [code = DIABETIC EYE Medical Center EXAM] Future Scheduled Test 1951-12-13 Diabetic foot [facility] 00:00:00 examination Medical Center (regime/therapy) [code = 839702488] Future Scheduled Test 1951-12-13 Urine screening for [facility] 00:00:00 protein (procedure) Medical Center [code = 837959240] Future Scheduled Test 1951-12-13 DIABETIC EYE EXAM [facility] 00:00:00 [code = DIABETIC EYE Medical Center EXAM] Future Scheduled Test 1951-12-13 Diabetic foot [facility] 00:00:00 examination Medical Center (regime/therapy) [code = 694156537] Future Scheduled Test 1951-12-13 Urine screening for [facility] 00:00:00 protein (procedure) Medical Center [code = 198061948] Future Scheduled Test 1947-12-13 PNEUMOCOCCAL 65+ YRS [...] = DXA [facility] 00:00:00 SCAN] [facility] Future Scheduled Test 1941 DXA SCAN [code = DXA [facility] 00:00:00 SCAN] [facility] Future Scheduled Test 1941 DXA SCAN [code = DXA [facility] 00:00:00 SCAN] [facility] Future Scheduled Test 1941 DXA SCAN [code = DXA [facility] 00:00:00 SCAN] [facility] Future Scheduled Test 1941 DXA SCAN [code = DXA [facility] 00:00:00 SCAN] [facility] Future Scheduled Test 1941 DXA SCAN [code = DXA [facility] 00:00:00 SCAN] [facility] Future Scheduled Test 1941 DXA SCAN [code = DXA [facility] 00:00:00 SCAN] [facility] Future Scheduled Test 1941 DXA SCAN [code = DXA [facility] 00:00:00 SCAN] [facility] Future Appointment 2023-05-26 Carson Sheldon, [place] [facility] 00:00:[address]; Practice [address], [place] [address] Future Appointment 2023-05-25 [facility] 10:45:[address]; Practice [address], [place] [address] Instructions [facility] Encounters Start End Encounter Admission Attending Care Care Encounter Source Date/Time Date/Time Type Type Clinicians Facility Department ID 2023-03-21 Inpatient EL PALLISTER, SLEVanessa SLE [id number] [facility] 12:15:01 CAROLINA 2023-03-21 Inpatient EL PALLISTER, SLEH SLE [id number] [facility] 12:14:45 CAROLINA 2023-03-20 Inpatient EL JESSICA, SLE SLE [id number] [facility] 14:14:30 WM 2023-03-20 Inpatient EL JESSICA, SLEH SLE [id number] [facility] 11:20:01 WM 2023-03-20 Inpatient EL LUCA, SLEH SLEH [id number] [facility] 09:11:54 ASIA 2023-03-20 Inpatient EL JESSICA, SLEH SLEH [id number] SLE[facility] 00:00:00 WM 2023-03-19 Inpatient RAMIRO LOPEZ, SLEH SLEH [id number] [facility] 18:15:15 WM 2023-03-19 Inpatient RAMIRO MAYORGA, SLEH SLEH [id number] [facility] 17:00:05 CAROLINA 2023-03-19 Inpatient RAMIRO LOPEZ SLEH SLEH [id number] SLEH 14:28:29 WM 2023-03-05 Inpatient GRETA ValdesTO DAYS [id number] [facility] 16:17:00 [facility] 2022-11-21 Outpatient [facility] [id number] [place] 11:59:[address] [place] [address] 2020-10-23 Outpatient ISMA [facility] [id number] [place] 03:35:09 [facility] 2023-05-04 2023-05-04 Norma Martinez [facility] [place] - Ortho [id number] Arlin 00:00:00 00:00:00 Laura Espinoza MD: [id number] FOG_Telemed dic [facility] [phone] , Ph. 2023-05-02 2023-05-02 Outpatient RAMIRO Villarrealell MACARIO RADI [id number] [facility] 10:31:00 10:31:00 Norma [facility] 2023-04-30 2023-04-30 Outpatient FOG_Mehlhof AOSM AOSM 623 2176-20 Arlin 00:00:00 00:00:00 Mary [id number] Orth ope dic [facility] 2023-04-30 2023-04-30 Outpatient FOG_Mehlhof AOSM AOSM 623 6-20 Arlin 00:00:00 00:00:00 Mary 707278 Orth ope [facility] Sports Medicin e 2023-04-30 2023-04-30 Norma DALEY [place] - Ortho [id number] Arlin 00:00:00 00:00:00 Laura Espinoza MD: [id number] FOG_Ofc dic [facility] [address] , Ph. [phone] 2023-04-25 2023-04-25 Orders [place], 1.2.840.1 [id number] Methodi 00:00:00 00:00:00 Only Lora Yee 89395.1.[address] 3.430.2.7 Hospit a .3.287903 l .8 2023-04-25 2023-04-25 Refill [place], 1.2.840.1 [id number] 3875 Methodi 00:00:00 00:00:[address] 3.430.2.7 Hospit a .3.687010 l .8 2023-04-25 2023-04-25 Orders [place], 1.2.840.1 [id number] 2493 Methodi 00:00:00 00:00:00 Only Lora Yee [address]104.1.[address] 3.430.2.7 Hospit a .3.943105 l .8 2023-04-25 2023-04-25 Refill [place], 1.2.840.1 [id number] 7015 Methodi 00:00:00 00:00:[address] 3.430.2.7 Hospit a .3.625612 l .8 2023-04-18 2023-04-18 [facility] GC_GCBZW_Ka PRIV PRIV [facility] 48064-5 [facility] 00:00:00 00:00:00 karen_Milagros [id number] Medic al 2023-04-13 2023-04-13 Refill [place], 1.2.840.1 [id number] 9767 Methodi 00:00:00 00:00:[address] 3.430.2.7 Hospit a .3.445783 l .8 2023-04-13 2023-04-13 Refill [place], 1.2.840.1 [id number] 1680 Methodi 00:00:00 00:00:[address] 3.430.2.7 Hospit a .3.916984 l .8 2023-03-28 2023-03-28 Outpatient R [facility] [id number] Univers 00:00:00 00:00:00 [facility] 2023-03-18 2023-03-27 Inpatient ER OSVALDO SANCHEZ Surgery [id number] SLE 22:31:00 17:55:00 [facility] 2023-03-18 2023-03-27 [facility] Jessica [facility] [id number] 22:31:00 17:55:00 [facility]23-03-24 2023-03-24 Outpatient OSVALDO VARGHESE [facility] [id number] SLE 12:50:19 12:50:19 [facility] 2023-03-22 2023-03-22 Outpatient EL TIERRA [facility] 3 [id number] SLE 13:27:12 13:27:12 [place] 2023-03-22 2023-03-[address] [facility] [id number] 07:26:00 12:01:00 Event Maura Bello [facility] 2023-03-22 2023-03-22 [facility] [id number] 07:30:00 10:35:00 [facility] 2023-03-21 2023-03-21 Outpatient EL TIERRA [facility] 3 [id number] SLE 00:00:00 00:00:00 [place]LIN 2023-03-20 2023-03-20 Outpatient EL LUCA [facility] 3 [id number] SLE 10:41:50 10:41:50 ASIA 2023-03-19 2023-03-19 [facility] [id number] 15:35:00 15:35:00 Encounter Wm [facility] 2023-03-19 2023-03-19 Outpatient RAMIRO LOPEZ [facility] [id number] SLE 00:00:00 00:00:00 WM 2023-02-23 2023-02-23 Outpatient FOG_Mehlhof AOSM AOSM 623 2176-20 Arlin 00:00:00 00:00:00 Mary [id number] Orth ope dic Sports Medicin e 2023-02-20 2023-02-20 Outpatient FOG_Mehlhof AOSM AOSM 623 2176-20 Arlin 00:00:00 00:00:00 Mary 545429 Orth ope dic Sports Medicin e 2023-02-12 2023-02-12 Outpatient FOG_Mehlhof AOSM AOSM 623 2176-20 Arlin 00:00:00 00:00:00 Mary 522982 Orth ope dic Sports Medicin e 2023-02-12 2023-02-12 Outpatient FOG_Mehlhof AOSM AOSM 623 2176-20 Arlin 00:00:00 00:00:00 Mary 520276 Orth ope dic Sports Medicin e 2023-02-12 2023-02-12 Outpatient FOG_Mehlhof AOSM AOSM 623 2176-20 Arlin 00:00:00 00:00:00 Mary 653921 Orth ope dic Sports Medicin e 2023-02-12 2023-02-12 Outpatient FOG_Mehlhof AOSM AOSM 623 2176-20 Arlin 00:00:00 00:00:00 Mary 115885 Orth ope dic Sports Medicin e 2023-01-17 2023-01-17 Outpatient FOG_Mehlhof AOSM AOSM 623 2176-20 Arlin 00:00:00 00:00:00 Mary 726612 Orth ope dic Sports Medicin e 2023-01-17 2023-01-17 Outpatient FOG_Mehlhof AOSM AOSM 623 2176-20 Arlin 00:00:00 00:00:00 Mary 308430 Orth ope dic Sports Medicin e 2022-12-13 2022-12-13 Procedure Frank, 1.2.840.1 [id number] 2099 [id number] Methodi 15:15:00 16:47:44 visit Alex 31430.1.[address] Gume 3.430.2.7 Hospit a .3.489254 l .8 2022-12-13 2022-12-13 Procedure Frank, 1.2.840.1 [id number] 2099 197583 Methodi 15:15:00 16:47:44 visit Alex 98253.1.[address] Gume 3.430.2.7 Hospit a .3.746854 l .8 2022-11-24 2022-11-24 Outpatient Daniel_T VFP VFP [id number] [address] [place] [address] 00:00:00 00:00:00 [id number] Family Practic e 2022-11-24 2022-11-24 Outpatient Daniel_T VFP VFP [id number] [address] [place] [address] 00:00:00 00:00:00 [id number] Family Practic e 2022-11-24 2022-11-24 Carson VFP [place] - [id number] V illage 00:00:00 00:00:00 [facility] PitoCharity - Pracedin quevedo MD: 236[address] [place] - e Shadow VM_HOU_[facility], [address], [place] [address] , Ph. 2022-10-25 2022-10-25 Outpatient Daniel_T VFP VFP [id number] [address] [place] [address] 00:00:00 00:00:00 [id number] Family Practic e 2022-10-25 2022-10-25 Outpatient Daniel_T VFP VFP [id number] [address] [place] [address] 00:00:00 00:00:00 [id number] Family Practic e 2022-09-26 2022-09-26 Telephone Fidencio, 1.2.840.1 [id number] 21 [id number] Methodi 00:00:00 00:00:[address] 3.430.2.7 Hospit a .3.062667 l .8 2022-09-26 2022-09-26 Orders Provider, 1.2.840.1 [id number] 2099 271938 Methodi 00:00:00 00:00:00 Only [place] 95723.1.[address] System 3.430.2.7 Hospit a .3.041334 l .8 2022-09-26 2022-09-26 Orders Brionna, 1.2.840.1 [id number] 2100 881219 Methodi 00:00:00 00:00:00 Only Not In 97143.1.[address] System 3.430.2.7 Hospit a .3.561051 l .8 2022-09-26 2022-09-26 Giovanna Nicolas 1.2.840.1 [id number] 21 [id number] Methodi 00:00:00 00:00:[address] 3.430.2.7 Hospit a .3.319915 l .8 2022-09-20 2022-09-20 Outpatient FOG_Elkousy AOSM AOSM 623 2176-20 Arlin 00:00:00 00:00:00 _Gato 966771 Orth ope dic Sports Medicin e 2022-09-20 2022-09-20 Outpatient FOG_Elkousy AOSM AOSM 623 2176-20 Arlin 00:00:00 00:00:00 _Gato 373492 Orth ope dic Sports Medicin e 2022-09-18 2022-09-18 Outpatient FOG_Elkousy AOSM AOSM 623 2176-20 Arlin 00:00:00 00:00:00 _Gato 444548 Orth ope dic Sports Medicin e 2022-09-18 2022-09-18 Vaibhav A AOSM [place] - Ortho [id number] Arlin 00:00:00 00:00:00 Laura Tello MD: 7401 FOG_Ofc dic [address] , [facility], [place] [address] , Ph. [phone] 2022-09-06 2022-09-06 Giovanna Nicolas 1.2.840.1 [id number] 21 [id number] Methodi 00:00:00 00:00:[address] 3.430.2.7 Hospit a .3.455063 l .8 2022-09-06 2022-09-06 Telephone Fidencio 1.2.840.1 [id number] 21 [id number] Method 00:00:00 00:00:[address] 3.430.2.7 Hospit a .3.871859 l .8 2022-08-28 2022-08-28 Orders Doctor NORMA 1.2.840.114 [id number] Univers 00:00:00 00:00:00 Only Unassigned, GLEN 350.1.13.10 ity of [place] [facility] 4.2.7.2.686 Kwame as [phone] [facility] montse 009 [place] 2022-08-24 2022-08-24 Outpatient FOG_Elkousy AOSM AO 623 2176-20 Arlin 00:00:00 00:00:00 _Gato 069109 Orth ope dic Sports Medicin e 2022-08-22 2022-08-22 Outpatient Daniel_T VFP VFP [id number] 20 [facility] 00:00:00 00:00:00 [id number] Family Practic e 2022-08-22 2022-08-22 Outpatient Daniel_T VFP VFP [id number] [address] [place] [address] 00:00:00 00:00:00 [id number] Family Practic e 2022-08-22 2022-08-22 Outpatient VFP VFP [id number] [place] [address] 00:00:00 00:00:00 [id number] Family Practic e 2022-08-22 2022-08-22 Carson VFP [place] - [id number] V illage 00:00:00 00:00:00 [facility] Family Charity Sheldon - Matteo quveedo MD: [address] [place] - e Shadow [facility] [address] [place] [facility], [address], [place] [address] , Ph. 2022-08-21 2022-08-21 Telephone VALDEZ Montenegro 1.2.840.114 10 [id number] [facility] 00:00:00 00:00:00 Chucho [facility] 350.1.13.10 it y of [place] 4.2.7.2.686 Kwame as KRISH?BLEA [phone] Ma dical GERALD 198 [facility] OFFICE [facility] 2022-08-04 2022-08-04 [facility] 1.2.322.446 [id number] 63525 Univers 10:00:00 10:21:24 Visit Chucho [facility] 350.1.13.10 it y of [place] 4.2.7.2.686 Kwame as KRISH?BLEA [phone] Ma dicesther DUARTE 198 [facility] OFFICE [facility] 2022-08-04 2022-08-04 [facility] [id number] Univers 10:00:00 10:21:24 CHUCHO itarash of [facility] 2022-08-04 2022-08-04 Orders Doctor NORMA 1.2.840.114 [id number] Univers 00:00:00 00:00:00 Only Unassigned, GLEN 350.1.13.10 ity of [place] [facility] 4.2.7.2.686 Kwame as [phone] [address] 2022-07-29 2022-07-29 Outpatient FOG_Elkousy AOSM AOSM 623 2176-20 Arlin 00:00:00 00:00:00 _Gato 841354 Orth ope dic Sports Medicin e 2022-07-25 2022-07-25 Orders Doctor NORMA 1.2.840.114 [id number] Univers 00:00:00 00:00:00 Only Unassigned, GLEN 350.1.13.10 ity of [place] [facility] 4.2.7.2.686 Kwame as [phone] [address] 2022-07-20 2022-07-20 Refill [place], 1.2.840.1 [id number] 9738 Methodi 00:00:00 00:00:[address] 3.430.2.7 Hospit a .3.293653 l .8 2022-07-20 2022-07-20 Refill [place], 1.2.840.1 [id number] 7824 Methodi 00:00:00 00:00:[address] 3.430.2.7 Hospit a .3.401588 l .8 2022-07-13 2022-07-13 Outpatient R CHUCHO MONTENEGRO [facility] [id number] [facility] 00:00:00 00:00:00 CHUCHO MONTENEGRO [facility] 2022-07-05 2022-07-05 Refill [place], 1.2.840.1 [id number] [id number] 6661 Methodi 00:00:00 00:00:[address] L[address] 3.430.2.7 Hospit a .3.915602 l .8 2022-07-05 2022-07-05 Refill [place], 1.2.840.1 [id number] [id number] 7315 Methodi 00:00:00 00:00:[address] 3.430.2.7 Hospit a .3.306883 l .8 2022-06-11 2022-06-11 Refill [place], 1.2.840.1 [id number] 5401 Methodi 00:00:00 00:00:[address] L[address].1.[address] 3.430.2.7 Hospit a .3.352547 l .8 2022-06-11 2022-06-11 Refill [place], 1.2.840.1 [id number] 0683 Methodi 00:00:00 00:00:[address] 3.430.2.7 Hospit a .3.051363 l .8 2022-05-23 2022-05-23 Outpatient Daniel_T VFP VFP [id number] -20 [facility] 00:00:00 00:00:00 [id number] Family Practic e 2022-05-23 2022-05-23 Outpatient Daniel_T VFP VFP [id number] -20 [facility] 00:00:00 00:00:00 [id number] Family Practic e 2022-05-23 2022-05-23 Carson VFP [place] - [id number] V illage 00:00:00 00:00:00 Samantha [facility] Family Sheldon, Medical - Practi nica WARD: [address] [place] - e Shadow Lizbeth Cervantes [facility], [address], [place] [address] , Ph. 2022-05-09 2022-05-09 Orders [place], 1.2.840.1 [id number] 2335 Methodi 00:00:00 00:00:00 Only Lora TorresNick 09570.1.[address] 3.430.2.7 Hospit a .3.969497 l .8 2022-05-09 2022-05-09 Orders [place], 1.2.840.1 [id number] [id number] 9841 Methodi 00:00:00 00:00:00 Only Lora TorresNick 64586.1.[address] 3.430.2.7 Hospit a .3.121265 l .8 2022-05-07 2022-05-07 Refill [place], 1.2.840.1 [id number] [id number] 0756 Methodi 00:00:00 00:00:00 Lora Torres. 37675.1.[address] 3.430.2.7 Hospit a .3.403808 l .8 2022-05-07 2022-05-07 Refill [place], 1.2.840.1 [id number] 664223 1646 Methodi 00:00:00 00:00:00 L[address] TorersNick 40970.1.[address] 3.430.2.7 Hospit a .3.425050 l .8 2022-04-17 2022-04-17 Outpatient Daniel_T VFP [facility] [id number] 4-20 [facility] 00:00:00 00:00:00 [id number] Practic e 2022-04-17 2022-04-17 [place] VFP [place] - [id number] V illage 00:00:00 00:00:00 Samantha [facility], Medical - Practi nica WARD: [id number] [place] - e Shadow Lizbeth Cervantes [facility], [address], [place] [address] , Ph. 2022-04-14 2022-04-14 Outpatient Daniel_T VFP VFP [id number] [address] [place] [address] 00:00:00 00:00:00 [id number] Family Practic e 2022-04-10 2022-04-10 Orders [place], 1.2.840.1 [id number] Methodi 00:00:00 00:00:00 Only Lora Yee 00495.1.[address] 3.430.2.7 Hospit a .3.502452 l .8 2022-04-09 2022-04-09 Refill [place], 1.2.840.1 [id number] 9369 Methodi 00:00:00 00:00:[address].1.[address] 3.430.2.7 Hospit a .3.310437 l .8 2022-03-09 2022-03-09 Outpatient FOG_[place] [facility] [address] [place] [address] 00:00:00 00:00:00 _Gato [id number] Orth ope dic Sports Medicin e 2022-03-09 2022-03-09 Nely Torres AO [place] - Ortho 2021 [address] 00:00:00 00:00:00 Laura Andrews MD: [id number] FOG_Ofc dic [facility], [place] [address] , Ph. [phone] 2022-03-06 2022-03-06 Outpatient FOG_[place] [facility] [address] 00:00:00 00:00:00 _Gato 053156 Orth ope dic Sports Medicin e 2022-02-16 2022-02-16 Outpatient Daniel_T VFP VFP [id number] [address] [place] [address] 00:00:00 00:00:00 [id number] Family Practic e 2022-02-16 2022-02-16 Outpatient VFP VFP [id number] [place] [address] 00:00:00 00:00:00 [id number] Family Practic e 2022-02-16 2022-02-16 Outpatient VFP VFP [id number] [facility] 00:00:00 00:00:00 [id number] Family Practic e 2022-02-06 2022-02-06 Outpatient Daniel_T VFP VFP [id number] 20 [facility] 00:00:00 00:00:00 [id number] Family Practic e 2022-02-01 2022-02-01 Outpatient Daniel_T VFP VFP [id number] 20 [facility] 00:00:00 00:00:00 [id number] Family Practic e 2022-02-01 2022-02-01 [place] VFP [place] - [id number] V illage 00:00:00 00:00:00 [facility]on[facility] - Matteo quevedo MD: [id number] VM_JUAN M_Roly e Shadow [facility], [address], [place] [address] , Ph. 2022-01-25 2022-01-25 Outpatient Daniel_T VFP VFP [id number] 10-05 [facility] 00:00:00 00:00:00 [id number] Family Practic e 2022-01-04 2022-01-04 Outpatient Daniel_T VFP VFP [id number] 20 [facility] 00:00:00 00:00:00 [id number] Family Practic e 2021-12-29 2021-12-29 Outpatient FOG_Elkousy AOSM AO 623 2176-20 Arlin 02:36:00 02:36:00 _Gato 914390 Orth ope dic Sports Medicin e 2021-12-29 2021-12-29 Roger Burk AOSM [place] - Ortho [id number] [place] 00:00:00 00:00:00 MD Jweel: Laura Maravilla - Orthope [address] FOG_Ofc dic [facility] Spor [facility], [place] [address] , Ph. [phone] 2021-12-29 2021-12-29 Outpatient GARFIELD Holloway AO [id number] 4-0 00:00:00 00:00:00 Roger Burk [id number]-a [id number] 2021-12-24 2021-12-24 Outpatient FOG_Elkousy AOSM AOSM 623 [place] 02:19:00 02:19:00 _Gato 997826 Orth ope dic Sports Medicin e 2021-12-24 2021-12-24 Outpatient FOG_Elkousy AOSM AOSM 623 [place] 02:19:00 02:19:00 _Gato 256221 Orth ope dic Sports Medicin e 2021-12-23 2021-12-23 Outpatient Pito_T VFP VFP [id number] 4-20 [facility] 10:31:00 10:31:00 [id number] Family Practic e 2021-12-23 2021-12-23 Carson VFP [place] - [id number] V illage 00:00:00 00:00:00 [facility] Sheldon, Medical - Practi nica MD: 52262 VM_CHRISTOSU_Roly e Shadow ow [place] [facility], [address], [place] [address] , Ph. 2021-12-16 2021-12-16 Outpatient RAMIRO Castaneda, HCATO PAIN [id number] [facility] 10:15:00 10:15:00 Phillip 06 [place] [facility] 2021-11-28 2021-11-28 Office MAGDALENA Wheeler 6400 1.2.414.370 8812 [address] [place] 10:30:00 10:50:33 Visit Joby YUSUF 350.1.13.58 [facility] 9.2.7.2.686 [phone] [id number] 2021-11-28 2021-11-28 Outpatient FOG_Elkousy AOSM AOSM 623 [place] 04:52:00 04:52:00 _Gato 797482 Orth ope dic Sports Medicin e 2021-11-24 2021-11-24 Outpatient FOG_Elkousy AOSM AOSM 623 [place] 11:55:00 11:55:00 _Gato 445470 Orth ope dic Sports Medicin e 2021-11-23 2021-11-23 Outpatient FOG_Elkousy AOSM AOSM 623 2176-20 Ralin 01:50:00 01:50:00 _Gato 892552 Orth ope dic Sports Medicin e 2021-11-23 2021-11-23 Telephone Whitley Bryson 1.2.840. 114 [id number] [place] 00:00:00 00:00:00 Whitley Bryson 350.1.13.58 Health STATION 9.2.7.2.686 [place] [id number] 2 2021-11-23 2021-11-23 Roger Wm AOSM [place] - Ortho [place] 00:00:00 00:00:00 MD eJwel: Laura Maravilla - Orthope [address] FOG[address], [place] [address] , Ph. [phone] 2021-11-23 2021-11-23 Outpatient Jewel AOJOSÉ LUIS AOSM [id number] 8-e 00:00:00 00:00:00 Roger Burk [id number] 2021-11-18 2021-11-18 Outpatient FOG_Elkousy AOSM AOSM 623 2176-20 [place] 12:41:00 12:41:00 _Gato 004003 Orth ope dic Sports Medicin e 2021-11-18 2021-11-18 Outpatient FOG_Elkousy AOSM AOSM 623 2176-20 [place] 12:41:00 12:41:00 _Gato 590412 Orth ope dic Sports Medicin e 2021-11-17 2021-11-17 Outpatient Daniel_T VFP VFP [id number] 4-20 [facility] 06:56:00 06:56:00 [id number] Family Practic e 2021-11-07 2021-11-07 Travel 1.2.840.1 1.2.041.341 5417 155539 Methodi 00:00:00 00:00:[address] 3.430.2.7 0.2.7.3.698 Ho spita .3.692775 084.8 l .8 2021-10-19 2021-10-19 Outpatient Daniel_T VFP VFP [id number] [address] [place] [address] 06:10:00 06:10:00 [id number] Family Practic e 2021-10-04 2021-10-04 Outpatient Daniel_T VFP VFP [id number] [address] [place] [address] 03:48:00 03:48:00 [id number] Family Practic e 2021-10-04 2021-10-04 Carson VFP [place] - [id number] V illage 00:00:00 00:00:00 [facility] Medical - Practi c MD: 24230 ANDREIA_JUAN M_Roly e Shadow ow [facility], [address], [place] [address] , Ph. 2021-08-26 2021-08-26 Outpatient Daniel_T VFP VFP [id number] [address] [place] [address] 08:52:00 08:52:00 [id number] Family Practic e 2021-08-09 2021-08-09 Outpatient Daniel_T VFP VFP [id number] [address] [place] [address] 12:16:00 12:16:00 [id number] Family Practic e 2021-08-04 2021-08-04 Outpatient Daniel_T VFP VFP [id number] [address] [place] [address] 03:46:00 03:46:00 [id number] Family Practic e 2021-08-04 2021-08-04 [place] VFP [place] - [id number] V illage 00:00:00 00:00:00 [facility] Medical - Practi c MD: [id number] ANDREIA_JUAN M_Roly e Shadow ow [facility], [address], [place] [address] , Ph. 2021-07-18 2021-07-18 Orders Petmo, 1.2.840.1 [id number] 7895 Methodi 00:00:00 00:00:00 Only Lora Yee [address]240.1.[address] 3.430.2.7 Hospit a .3.606366 l .8 2021-07-15 2021-07-15 Refill [place]ak, 1.2.840.1 [id number] 4777 Methodi 00:00:00 00:00:[address] 3.430.2.7 Hospit a .3.567682 l .8 2021-07-13 2021-07-13 Orders [place], 1.2.840.1 [id number] 8103 Methodi 00:00:00 00:00:00 Only Lora Yee [address]107.1.[address] 3.430.2.7 Hospit a .3.396331 l .8 2021-07-13 2021-07-13 Refill [place], 1.2.840.1 [id number] 993120 8855 Methodi 00:00:00 00:00:[address] 3.430.2.7 Hospit a .3.278490 l .8 2021-06-22 2021-06-22 Outpatient Daniel_T VFP VFP [id number] [address] [place] [address] 02:42:00 02:42:00 [id number] Family Practic e 2021-05-23 2021-05-23 Outpatient Daniel_T VFP VFP [id number] [address] [place] [address] 06:17:00 06:17:00 [id number] Family Practic e 2021-05-23 2021-05-23 Outpatient Daniel_T VFP VFP [id number] [address] [place] [address] 06:17:00 06:17:00 [id number] Family Practic e 2021-04-15 2021-04-15 Outpatient Daniel_T VFP VFP [id number] [address] [place] [address] 01:48:00 01:48:00 [id number] Family Practic e 2021-04-15 2021-04-15 [place] VFP [place] - [id number] V illage 00:00:00 00:00:00 [facility] - Matteo quevedo MD: 51856 VM_JUAN M_Roly e Shadow [facility], [address], [place] [address] , Ph. 2021-02-24 2021-02-24 Outpatient Daniel_T VFP VFP [id number] [address] [place] [address] 03:30:00 03:30:00 [id number] Family Practic e 2021-01-22 2021-01-22 Outpatient Daniel_T VFP VFP [id number] [address] [place] [address] 09:37:00 09:37:00 [id number] Family Practic e 2021-01-20 2021-01-20 Outpatient Daniel_T VFP VFP [id number] [address] [place] [address] 06:26:00 06:26:00 [id number] Family Practic e 2021-01-20 2021-01-20 [place] VFP [place] - [id number] V illage 00:00:00 00:00:00 [facility] Family ValenzuelaCharity rubio MD: 52238 VM_HORashid_Roly [place] [facility], [address], [place] [address] , Ph. 2020-11-13 2020-11-13 Outpatient Daniel_T VFP VFP [id number] [address] [place] [address] 02:42:00 02:42:00 [id number] Family Practic e 2020-11-13 2020-11-13 Outpatient Daniel_T VFP VFP [id number] [address] [place] [address] 02:42:00 02:42:00 [id number] Family Practic e 2020-11-13 2020-11-13 Outpatient Daniel_T VFP VFP [id number] [address] [place] [address] 02:42:00 02:42:00 [id number] Family Practic e 2020-11-13 2020-11-13 Outpatient Daniel_T VFP VFP [id number] [address] [place] [address] 02:42:00 02:42:00 [id number] Family Practic e 2020-10-15 2020-10-15 Outpatient Daniel_T VFP VFP [id number] [address] [place] [address] 02:19:00 02:19:00 [id number] Family Practic e 2020-10-14 2020-10-14 Outpatient Daniel_T VFP VFP [id number] [address] [place] [address] 11:20:00 11:20:00 [id number] Family Practic e 2020-10-14 2020-10-14 [place] VFP [place] - [id number] V illage 00:00:00 00:00:00 [facility] SheldonCharity MD: 95979 VM_HOU_Shad e Shadow [facility], [address], [place] [address] , Ph. 2020-07-16 2020-07-16 Outpatient Daniel_T VFP VFP [id number] [address] [place] [address] 06:12:00 06:12:00 [id number] Family Practic e 2020-07-15 2020-07-15 Outpatient [facility] [id number] [address] [place] 00:00:00 00:00:[address] 2020-07-14 2020-07-14 Outpatient Daniel_T VFP VFP [id number] [address] [place] [address] 01:44:00 01:44:00 [id number] Family Practic e 2020-07-14 2020-07-14 [place] VFP [place] - [id number] V illage 00:00:00 00:00:00 [facility] Charity Sheldon MD: 81578 VM_HOU_Shad e Shadow [facility], [address], [place] [address] , Ph. 2020-07-13 2020-07-13 Outpatient Daniel_T VFP VFP [id number] [address] [place] [address] 06:05:00 06:05:00 [id number] Family Practic e 2020-06-23 2020-06-23 Outpatient [facility] [id number] [place] 00:00:00 00:00:[address] 2020-04-30 2020-04-30 Outpatient Daniel_T VFP VFP [id number] [address] [place] [address] 01:32:00 01:32:00 [id number] Family Practic e 2020-04-24 2020-04-24 Outpatient Daniel_T VFP VFP [id number] [address] [place] [address] 03:48:00 03:48:00 Family Practic e 2020-04-14 2020-04-14 Outpatient Daniel_T VFP VFP [id number] [address] [place] [address] 04:51:00 04:51:00 [id number] Family Practic e 2020-04-14 2020-04-14 [place] VFP [place] - [id number] V illage 00:00:00 00:00:00 [facility] Charity Tam - Matteo quevedo MD: 94628 VM_HOU_Dani aditi [facility], [place] [address], [place] [address] , Ph. 2020-03-15 2020-03-15 Outpatient Ej [facility] [id number] 10-05 [facility] 10:19:00 10:19:00 [id number] Family Schuyler pennington 2020-01-26 2020-01-26 [facility] ISMA, [facility] 6781 0961 [place] 15:15:00 15:15:00 t; MICHAEL ASHBY, [facility] Armin RODRIGUEZ [facility] 2019-12-03 2019-12-03 [facility] [id number] [address] [place] [address] 00:00:00 00:00:00 LORA Floyd [facility] 2016-06-30 2016-06-30 Outpatient MHIE MHIE [id number] Memoria 13:00:00 13:00:00 09 sierra Butler 2016-06-30 2016-06-30 Outpatient MHIE MHIE [id number] Memoria 13:00:00 13:00:00 09 sierra Butler 2016-04-21 2016-04-21 Outpatient MHIE MHIE [id number] Memoria 13:30:00 13:30:00 07 sierra Butler 2016-04-21 2016-04-21 Outpatient MHIE MHIE [id number] Memoria 13:30:00 13:30:00 07 sierra Butler 2016-03-27 2016-03-27 Outpatient MHIE MHIE [id number] Memoria 11:30:00 11:30:00 08 sierra Butler 2016-03-27 2016-03-27 Outpatient MHIE MHIE [id number] Memoria 11:30:00 11:30:00 08 iserra Butler 2016-03-09 2016-03-09 Outpatient MHIE MHIE [id number] Memoria 11:00:00 11:00:00 06 sierra Butler 2016-03-09 2016-03-09 Outpatient MHIE MHIE [id number] Memoria 11:00:00 11:00:00 06 sierra Butler 2016-02-08 2016-02-15 Inpatient [facility] [id number] Memoria 15:51:00 01:30:00 r [place] 00 [facility] 2016-02-08 2016-02-15 Inpatient [facility]Flavo [facility] 34732 [id number] Memoria 15:51:00 01:30:00 r Luke 00 [facility] 2016-02-08 2016-02-14 Outpatient Riley Whyte [facility] [id number] 10:51:00 20:30:00 Jese 2016-02-08 2016-02-08 Outpatient MHIE SUKUMAR [id number] Memoria 07:30:00 07:30:00 05 sierra [place] 2016-02-08 2016-02-08 Outpatient MHIE IE [id number] Memoria 07:30:00 07:30:00 05 sierra [place] 2016-01-11 2016-01-19 Inpatient [facility]Flavo [facility] [id number] Memoria 21:33:00 21:30:[address] 2016-01-11 2016-01-19 Inpatient [facility]Flavo [facility] 73529 [id number] Memoria 21:33:00 21:30:00 r Luke 08 [facility] 2016-01-11 2016-01-19 Outpatient Coreen [facility] [id number] 16:33:00 16:30:00 Jean Paul Quiroga 2016-01-17 2016-01-17 Outpatient IE IE [id number] Memoria 11:00:00 11:00:00 04 sierra [place] 2016-01-17 2016-01-17 Outpatient IE SUKUMAR [id number] Memoria 11:00:00 11:00:00 04 sierra [place] 2016-01-11 2016-01-11 Pre Admit [facility]Fl[facility] 20059 [id number] Memoria 04:00:00 04:00:[address] 2016-01-11 2016-01-11 Pre Admit [facility]Flavo [facility] 31539 10309 Memoria 04:00:00 04:00:[address] 2016-01-10 2016-01-10 Outpatient Ranjit Drew [facility] [id number] 23:00:00 23:00:00 [place] 2015-12-15 2015-12-15 Outpatient MHIE IE [id number] Memoria 14:00:00 14:00:00 03 sierra [place] 2015-12-15 2015-12-15 Outpatient MHIE IE [id number] Memoria 14:00:00 14:00:00 03 sierra [place] 2015-12-15 2015-12-15 Outpatient MHIE IE [id number] Memoria 13:30:00 13:30:00 02 sierra [place] 2015-12-15 2015-12-15 Outpatient MHIE IE [id number] Memoria 13:30:00 13:30:00 02 sierra [place] 2015-12-15 2015-12-15 Outpatient MHIE IE [id number] Memoria 11:00:00 11:00:00 01 sierra [place] 2015-12-15 2015-12-15 Outpatient MHIE IE [id number] Memoria 11:00:00 11:00:00 01 sierra Luke 2015-12-02 2015-12-02 Outpatient MHIE IE [id number] Memoria 11:00:00 11:00:00 00 sierra [place] 2015-12-02 2015-12-02 Outpatient MHIE IE [id number] Memoria 11:00:00 11:00:00 00 sierra [place] 2014-03-25 2014-03-26 Outpt Diag nullFlavo [facility] [id number] Memoria 14:57:00 04:59:00 Services r Outpatient 04 l Joan Butler Luke 2014-03-25 2014-03-26 Outpt Diag nullFlavo [facility] [id number] Memoria 14:57:00 04:59:00 Services r Outpatient 04 l Joan Butler Luke 2014-03-25 2014-03-25 Outpatient William, 2.16.840. 2.16.840.1. [id number] 09:57:00 23:59:00 Keron 1.762510. 628655.3.61 04 Gabbie 3.615.0.1 5.0.270 45 9182-04-02 2013-09-18 Outpt Diag nullFlavo [facility] [id number] Memoria 16:29:00 04:59:00 Services r Outpatient [id number] l Imaging Luke [place] 2013-09-17 2013-09-18 Outpt Diag nullFlavo [facility] [id number] Memoria 16:29:00 04:59:00 Services r Outpatient [id number] l Imaging 9 [facility] 2013-09-17 2013-09-17 Outpatient William, 2.16.840. 2.16.840.1. [id number] 11:29:00 23:59:00 Keron 1.977482. 337682.3.61 03 Gabbie 3.615.0.1 5.0.452 90 3470-04-18 2012-10-06 Inpatient nullFlavo [facility] 62743 [id number] Memoria 08:38:00 12:00:00 r Medical 00 [facility] 2012-10-03 2012-10-06 Inpatient nullFlavo [facility] 73372 [id number] Memoria 08:38:00 12:00:00 r Medical 00 l [facility] Results Test Description Test Time Test Comments Results Result [facility] e Comments - CT PELVIS W/O 2023-05-03 CONTRAST 15:38:00 [facility] : 1940 Sex: F Patient Name: AMANDA NDIAYE Unit No: [id number] EXAMS: CPT CODE: [id number] CT PELVIS W/O CONTRAST 48152 TECHNIQUE: Multiplanar CT images were obtained of [...] 2. No acute findings of the pelvis. [facility] NAME: AMANDA NDIAYE [address] [facility] PHYS: HARJO.04 - Norma Espinoza MD : 1940 AGE: 82 SEX: F [place], [place] [address] LOC: Y.RAD PHONE #: [phone] EXAM DATE: 05/02/2023 STATUS: DEP CLI FAX #: [phone] RAD #: [id number] D/C DT PAGE 1 Signed Report (CONTINUED) Patient Name: AMANDA NDIAYE Unit No: [id number] EXAMS: CPT CODE: [id number] CT PELVIS W/O CONTRAST 16969 (Continued) 3. Multiple chronic findings as described. at 1538 Reported and signed by: Earl Mendoza M.D. CC: Norma Espinoza MD; Phillip Castaneda MD Technologist: RT Tony(R) CTDI: DLP: Trnscrpt: 05/03/2023 (1538) [email or web address] [facility] NAME: AMANDA NDIAYE [address] [facility] PHYS: HARNorma Lang MD : 1940 AGE: 82 SEX: F [place] [address] LOC: Y.RAD PHONE #: [phone] EXAM DATE: 05/02/2023 STATUS: DEP CLI FAX #: [phone] RAD #: [id number] D/C DT PAGE 2 Signed Report Patient Name: AMANDA NDIAYE Unit No: [id number] EXAMS: CPT CODE: [id number] CT PELVIS W/O CONTRAST 93933 (Continued) Orig Print D/T: S: 05/03/2023 (1542) [facility] NAME: AMANDA NDIAYE [address] [facility] PHYS: NIRAV.Norma Phillips MD : 1940 AGE: 82 SEX: F [place] [address] LOC: Y.RAD PHONE #: [phone] EXAM DATE: 05/02/2023 STATUS: DEP CLI FAX #: [phone] RAD #: [id number] D/C DT PAGE 3 Signed Report - CT L-SPINE W/O 2023-05-03 CONTRAST 15:38:00 [facility] : 1940 Sex: F Patient Name: AMANDA NDIAYE Unit No: [id number] EXAMS: CPT CODE: [id number] CT L-SPINE W/O CONTRAST 07668 TECHNIQUE: Multiplanar CT images were obtained of [...] 2. No acute findings of the pelvis. [facility] NAME: AMANDA NDIAYE [address] [facility] PHYS: HARJO.04 - Norma Espinoza MD : 1940 AGE: 82 SEX: F [place], [place] [address] LOC: Y.RAD PHONE #: [phone] EXAM DATE: 05/02/2023 STATUS: DEP CLI FAX #: [phone] RAD #: [id number] D/C DT PAGE 1 Signed Report (CONTINUED) Patient Name: AMANDA NDIAYE Unit No: [id number] EXAMS: CPT CODE: [id number] CT L-SPINE W/O CONTRAST 49372 (Continued) 3. Multiple chronic findings as described. at 1538 Reported and signed by: Earl Mendoza M.D. CC: Norma Espinoza MD; Phillip Castaneda MD Technologist: Cosme Argueta,RT(R) CTDI: DLP: Trnscrpt: 05/03/2023 (1538) [email or web address] [facility] NAME: AMANDA NDIAYE [address] [place] [address] PHYS: [facility] CENTERKATLYNNickJimmy Norma Espinoza MD : 1940 AGE: 82 SEX: F [place] [address] LOC: Y.RAD PHONE #: [phone] EXAM DATE: 05/02/2023 STATUS: DEP CLI FAX #: [phone] RAD #: [id number] D/C DT PAGE 2 Signed Report Patient Name: AMANDA NDIAYE Unit No: [id number] EXAMS: CPT CODE: [id number] CT L-SPINE W/O CONTRAST 82149 (Continued) Orig Print D/T: S: 05/03/2023 (1542) [facility] NAME: AMANDA NDIAYE [address] [place] [address] PHYS: Norma Phillips MD : 1940 AGE: 82 SEX: F [place] [address] LOC: Y.RAD PHONE #: [phone] EXAM DATE: 05/02/2023 STATUS: DEP CLI FAX #: [phone] RAD #: [id number] D/C DT PAGE 3 Signed Report MISCELLANEOUS LAB ORDER 2023-04-03 09:25:21 Test Item Value Reference Range Interpretation Comme nts SCAN RESULT (test code = 0337299) See scanned report. [place] Rhufs6957-74-50 09:25:21Scan Vgfuqf7104/03/2023 9:25 AM CDTSLE NON- INTERFACED REFERENCE LABSCHI [facility] Sedsm5825-51-69 09:25:21Scan Pxajfl6404/03/2023 9:25 AM CDTSLEH NON-INTERFACED REFERENCE LABSCol[facility] Center[facility] Smaan9350-05-92 09:25:21Scan Ykgeqc5104/03/2023 9:25 AM CDTSLEH NON-INTERFACED REFERENCE LABSCol[facility] CenterCan[facility] Jwfbb5020-33-34 09:25:21Scan Ywlcav8304/03/2023 9:25 AM CDTSLEH NON-INTERFACED REFERENCE LABSCol[facility] CenterCan[facility] Iwrrl4646-69-05 09:25:21Scan Xtkcms9004/03/2023 9:25 AM CDTSLEH NON-INTERFACED REFERENCE LABSUCSF [facility]2023-10-17 09:25:21Scan Zkhfhb1704/03/2023 9:25 AM CDTSLEH NON-INTERFACED REFERENCE LABSPark [facility]itariumis 2023-04-03 09:25:21Scan Udxptl0504/03/2023 9:25 AM CDTSLEH NON-INTERFACED REFERENCE LABSColusa Regional Medical CenterPOC-Glucose rlaru5780-42-98 17:20:14 Test Item Value Reference Range Interpretation Comments POC-Glucose Meter (test 112 mg/dL 70-110 H : TE STED AT [facility] code = 1538) [address] [place] [address], [facility] 30: Credit Analysis Manager/Techni britney ID = [id number] for PREMA LONGOM A Lab Interpretation (test Abnormal code = 73893-1) [facility] CenterPO-Glucose zgdah3310-33-72 17:20:14 Test Item Value Reference Range Interpretation Comments POC-Glucose Meter (test 112 mg/dL 70-110 H : TE STED AT [facility] code = 1538) [address] [place] [address], 770 30: Credit Analysis Manager/Techni britney ID = [id number] for ANGELAU, CHIOM A Lab Interpretation (test Abnormal code = 95583-5) [facility] CenterPO[facility]Glucose edzya0113-29-06 17:20:14 Test Item Value Reference Range Interpretation Comments POC-Glucose Meter (test 112 mg/dL 70-110 H : TE STED AT [facility] code = 1538) [address] [place] [address], 770 30: Credit Analysis Manager/Techni britney ID = [id number] for ANGELAUPREMAOM A Lab Interpretation (test Abnormal code = 48506-3) [facility]-Glucose [id number] 17:20:14 Test Item Value Reference Range Interpretation Comments POC-Glucose Meter (test 112 mg/dL 70-110 H : TE STED AT [facility] code = 1538) [address] [place] [address], [facility] 30: Credit Analysis Manager/Techni britney ID = [id number] for NWAJIAKU, CHIOM A Lab Interpretation (test Abnormal code = 72624-2) [facility]-Glucose [id number] 17:20:14 Test Item Value Reference Range Interpretation Comments POC-Glucose Meter (test 112 mg/dL 70-110 H : TE STED AT [facility] code = 1538) [address] [place] [address], [facility] 30: Credit Analysis Manager/Techni britney ID = [id number] for NWATISHAKU, CHIOM A Lab Interpretation (test Abnormal code = 78450-5) [facility]-Glucose pyxen2329-51-39 17:20:14 Test Item Value Reference Range Interpretation Comments POC-Glucose Meter (test 112 mg/dL 70-110 H : TE STED AT [facility] code = 1538) [address] [place] [address], [facility] 30: Credit Analysis Manager/Techni britney ID = [id number] for NWATISHAKU, CHIOM A Lab Interpretation (test Abnormal code = 65718-0) [facility]-Glucose mwunv2162-14-02 17:20:14 Test Item Value Reference Range Interpretation Comments POC-Glucose Meter (test 112 mg/dL 70-110 H : TE STED AT [facility] code = 1538) [address] [place] [address], 770 30: Credit Analysis Manager/Techni britney ID = [id number] for NWATISHAKU, CHIOM A Lab Interpretation (test Abnormal code = 02708-8) [facility]-GLUCOSE [id number] 17:20:14 Test Item Value Reference Range Interpretation Comments POC-GLUCOSE METER 112 mg/dL 70-110 H : TESTED A T [facility] 6720 (BEAKER) (test code = [facility], 1538) 377[address]: Credit Analysis Manager/Techni britney ID = [id number] for KELVIN CEDILLO CHIOMA POCT-GLUCOSE [id number] 14:02:19 Test Item Value Reference Range Interpretation Comments POC-GLUCOSE METER 220 mg/dL 70-110 H : TESTED A T [facility] 6720 (BEAKER) (test code = [facility], 1538) 98073: Credit Analysis Manager/Techni britney ID = [id number] for KELVIN CEDILLO, LILIANA POCT-GLUCOSE [id number] 11:50:26 Test Item Value Reference Range Interpretation Comments POC-GLUCOSE METER 277 mg/dL 70-110 H : TESTED A T [facility] 6720 (BEAKER) (test code = [facility], 1538) 65775: Credit Analysis Manager/Techni britney ID = [id number] for ILENE Milagros BAUTISTAKARA POCT-GLUCOSE [id number] 08:19:33 Test Item Value Reference Range Interpretation Comments POC-GLUCOSE METER 190 mg/dL 70-110 H : TESTED A T [facility] 6720 (BEAKER) (test code = [facility], 1538) 06290: Credit Analysis Manager/Techni britney ID = [id number] for JOSEXAVIER, S HIKARA [id number] 05:08:33 Test Item Value Reference Range Interpretation Comments MAGNESIUM (BEAKER) (test code = 1.1 mg/dL 1.6-2.6 L 627) Credit Analysis Manager ID - [id number] 05:08:33 Test Item Value Reference Range Interpretation Comments PHOSPHORUS (BEAKER) (test code = 2.0 mg/dL 2.3-4.7 L 604) Credit Analysis Manager ID - BSCOMPREHENSIVE METABOLIC [id number] 05:08:32 Test Item Value Reference Range Interpretation [...] not appl icable for dialysis patien ts Credit Analysis Manager ID - [id number] (HEMOGRAM ONLY)2023-03-27 04:50:09 Test [...] code = 412) PLATELET COUNT (BEAKER) (test 211 K/CU MM 150-450 code = 756) MEAN PLATELET VOLUME (BEAKER) 11.1 fL 9.4-12.3 (test code = 754) NUCLEATED RED BLOOD CELLS 0 /100 WBC 0-0 (BEAKER) (test code = 413) POCT-GLUCOSE [id number] 01:04:55 Test Item Value Reference Range Interpretation Comments POC-GLUCOSE METER 154 mg/dL 70-110 H : TESTED A T [facility] 6720 ([facility]) (test code = [facility], [facility]) 19687: Credit Analysis Manager/Techni britney ID = [id number] for REGINALDO GUTIERREZ POCT-GLUCOSE [id number] 21:26:59 Test Item Value Reference Range Interpretation Comments POC-GLUCOSE METER 133 mg/dL 70-110 H : TESTED A T [facility] 6720 (BEAKER) (test code = [facility], [facility]) 71270: Credit Analysis Manager/Techni britney ID = [id number] for Radha persaud Franny POCT-GLUCOSE [id number] 18:01:59 Test Item Value Reference Range Interpretation Comments POC-GLUCOSE METER 297 mg/dL 70-110 H : TESTED A T [facility] 6720 (BEAKER) (test code = [facility], 153) 77630: Credit Analysis Manager/Techni britney ID = [id number] for Am Rafael valentin POCT-GLUCOSE [id number] 12:05:14 Test Item Value Reference Range Interpretation Comments POC-GLUCOSE METER 273 mg/dL 70-110 H : TESTED A T [facility] 6720 (BEAKER) (test code = [facility], 153) 707[address]: Credit Analysis Manager/Techni britney ID = [id number] for Rafael Carrasco POCT-GLUCOSE [id number] 07:54:18 Test Item Value Reference Range Interpretation Comments POC-GLUCOSE METER 138 mg/dL 70-110 H : TESTED A T [facility] 6720 (BEAKER) (test code = [place], 1538) 20541: Credit Analysis Manager/Techni britney ID = [id number] for Rafael Carrasco CBC (HEMOGRAM ONLY)2023-03-26 05:39:50 [...] (BEAKER) (test code = 413) BASIC METABOLIC [id number] 05:39:37 Test Item Value Reference Range Interpretation [...] not appl icable for dialysis patien ts Credit Analysis Manager ID - sfrveBLUKSNQHYL9713-04-62 05:39:37 Test Item Value Reference Range Interpretation Comments PHOSPHORUS (BEAKER) (test code = 1.6 mg/dL 2.3-4.7 L 604) Credit Analysis Manager ID - kcvfxQPKWZTRCR7702-58-36 05:39:36 Test Item Value Reference Range Interpretation Comments MAGNESIUM (BEAKER) (test code = 1.2 mg/dL 1.6-2.6 L 627) Credit Analysis Manager ID - adminUrinalysis w/Microscopic + Reflex to [id number] 00:52:10 Test Item Value Reference Range Interpretation Comments Color, UA (test code Light Yellow = 5778-6) Clarity, UA (test Clear code = 5767-9) Specific [place], UA 1.021 1.001-1.035 (test code = 5811-5) pH, UA (test code = 6.0 5.0-8.0 5803-2) Protein, UA (test 200 mg/dL Negative A code = 23531-1) Glucose, UA (test 100 mg/dL Negative A code = 365) Ketones, UA (test Negative Negative code = 1984-8) Bilirubin, UA (test Negative Negative code = 16154-3) Blood, UA (test code Negative Negative = 62779-7) Nitrite, UA (test Negative Negative code = 5802-4) Leukocytes, UA (test Negative Negative code = 5799-2) Urobilinogen, UA 0.2 0.2-1.0 (test code = 13661-4) RBC, UA (test code = 0 See_Comment [Autom ated 44322-8) message] The system which generated this result [...] 2 See_Comment [Automate d (test code = 43838-6) messag e] The system which generated this result transmit juan reference range : /HPF. The reference range was not used to interpret this result as normal/abnormal . Specimen Source (test code = 2795) DAREN (test code = DAREN) Credit Analysis Manager ID - [auto]Credit Analysis Manager ID - tech Lab Interpretation Abnormal (test code = 79228-1) [facility] Culture 2023-03-26 00:52:10 Test Item Value Reference Range Interpretation Comments Color, UA (test code Light Yellow = 5778-6) Clarity, UA (test Clear code = 5767-9) Specific [place], UA 1.021 1.001-1.035 (test code = 5811-5) pH, UA (test code = 6.0 5.0-8.0 5803-2) Protein, UA (test 200 mg/dL Negative A code = 15272-3) Glucose, UA (test 100 mg/dL Negative A code = 365) Ketones, UA (test Negative Negative code = 2514-8) Bilirubin, UA (test Negative Negative code = 10055-0) Blood, UA (test code Negative Negative = 09234-8) Nitrite, UA (test Negative Negative code = 5802-4) Leukocytes, UA (test Negative Negative code = 5799-2) Urobilinogen, UA 0.2 0.2-1.0 (test code = 00138-4) RBC, UA (test code = 0 See_Comment [Autom ated 02397-6) message] The system which generated this result [...] 2 See_Comment [Automate d (test code = 25573-1) messag e] The system which generated this result transmit juan reference range : /HPF. The reference range was not used to interpret this result as normal/abnormal . Specimen Source (test code = 2795) DAREN (test code = DAREN) Credit Analysis Manager ID - [auto]Credit Analysis Manager ID - tech Lab Interpretation Abnormal (test code = 66072-2) [facility] Reflex [facility] Culture 2023-03-26 00:52:10 Test Item Value Reference Range Interpretation Comments Color, UA (test code Light Yellow = 5778-6) Clarity, UA (test Clear code = 5767-9) Specific [place], UA 1.021 1.001-1.035 (test code = 5811-5) pH, UA (test code = 6.0 5.0-8.0 5803-2) Protein, UA (test 200 mg/dL Negative A code = 27582-3) Glucose, UA (test 100 mg/dL Negative A code = 365) Ketones, UA (test Negative Negative code = 2514-8) Bilirubin, UA (test Negative Negative code = 53055-9) Blood, UA (test code Negative Negative = 90785-8) Nitrite, UA (test Negative Negative code = 5802-4) Leukocytes, UA (test Negative Negative code = 5799-2) Urobilinogen, UA 0.2 0.2-1.0 (test code = 01083-8) RBC, UA (test code = 0 See_Comment [Autom ated 17021-5) message] The system which generated this result transmit juan reference range : /HPF. The reference range was not used to interpret this result as normal/abnormal . WBC, UA (test code = 3 See_Comment [Autom ated 5821-4) message] The system which generated this result transmit juan reference range : /HPF. The reference range was not used to interpret this result as normal/abnormal . Squdanielle Epithel, UA 2 See_Comment [Automate d (test code = 11917-2) messag e] The system which generated this result transmit juan reference range : /HPF. The reference range was not used to interpret this result as normal/abnormal . Specimen Source (test code = 2795) DAREN (test code = DAREN) Credit Analysis Manager ID - [auto]Credit Analysis Manager ID - tech Lab Interpretation Abnormal (test code = 92737-7) [facility] Reflex [facility] Culture 2023-03-26 00:52:10 Test Item Value Reference Range Interpretation Comments Color, UA (test code Light Yellow = 5778-6) Clarity, UA (test Clear code = 5767-9) Specific [place], UA 1.021 1.001-1.035 (test code = 5811-5) pH, UA (test code = 6.0 5.0-8.0 5803-2) Protein, UA (test 200 mg/dL Negative A code = 67253-4) Glucose, UA (test 100 mg/dL Negative A code = 365) Ketones, UA (test Negative Negative code = 2514-8) Bilirubin, UA (test Negative Negative code = 12597-2) Blood, UA (test code Negative Negative = 87133-1) Nitrite, UA (test Negative Negative code = 5802-4) Leukocytes, UA (test Negative Negative code = 5799-2) Urobilinogen, UA 0.2 0.2-1.0 (test code = 55923-3) RBC, UA (test code = 0 See_Comment [Autom ated 65264-2) message] The system which generated this result transmit juan reference range : /HPF. The reference range was not used to interpret this result as normal/abnormal . WBC, UA (test code = 3 See_Comment [Autom ated 5821-4) message] The system which generated this result transmit juan reference range : /HPF. The reference range was not used to interpret this result as normal/abnormal . Nereyda Epithramiro, UA 2 See_Comment [Automate d (test code = 36518-1) messag e] The system which generated this result transmit juan reference range : /HPF. The reference range was not used to interpret this result as normal/abnormal . Specimen Source (test code = 2795) DAREN (test code = DAREN) Credit Analysis Manager ID - [auto]Credit Analysis Manager ID - tech Lab Interpretation Abnormal (test code = 69266-4) [facility] Reflex to Culture 2023-03-26 00:52:10 Test Item Value Reference Range Interpretation Comments Color, UA (test code Light Yellow = 5778-6) Clarity, UA (test Clear code = 5767-9) Specific [place], UA 1.021 1.001-1.035 (test code = 5811-5) pH, UA (test code = 6.0 5.0-8.0 5803-2) Protein, UA (test 200 mg/dL Negative A code = 75242-1) Glucose, UA (test 100 mg/dL Negative A code = 365) Ketones, UA (test Negative Negative code = 2514-8) Bilirubin, UA (test Negative Negative code = 97405-5) Blood, UA (test code Negative Negative = 00546-4) Nitrite, UA (test Negative Negative code = 5802-4) Leukocytes, UA (test Negative Negative code = 5799-2) Urobilinogen, UA 0.2 0.2-1.0 (test code = 69351-6) RBC, UA (test code = 0 See_Comment [Autom ated 67031-9) message] The system which generated this result [...] 2 See_Comment [Automate d (test code = 07274-0) messag e] The system which generated this result transmit juan reference range : /HPF. The reference range was not used to interpret this result as normal/abnormal . Specimen Source (test code = 2795) DAREN (test code = DAREN) Credit Analysis Manager ID - [auto]Credit Analysis Manager ID - tech Lab Interpretation Abnormal (test code = 24616-5) [facility] Reflex to Culture 2023-03-26 00:52:10 Test Item Value Reference Range Interpretation Comments Color, UA (test code Light Yellow = 5778-6) Clarity, UA (test Clear code = 5767-9) Specific [place], UA 1.021 1.001-1.035 (test code = 5811-5) pH, UA (test code = 6.0 5.0-8.0 5803-2) Protein, UA (test 200 mg/dL Negative A code = 98417-1) Glucose, UA (test 100 mg/dL Negative A code = 365) Ketones, UA (test Negative Negative code = 2514-8) Bilirubin, UA (test Negative Negative code = 59070-7) Blood, UA (test code Negative Negative = 06216-3) Nitrite, UA (test Negative Negative code = 5802-4) Leukocytes, UA (test Negative Negative code = 5799-2) Urobilinogen, UA 0.2 0.2-1.0 (test code = 33489-2) RBC, UA (test code = 0 See_Comment [Autom ated 33097-7) message] The system which generated this result [...] 2 See_Comment [Automate d (test code = 84803-8) messag e] The system which generated this result transmit juan reference range : /HPF. The reference range was not used to interpret this result as normal/abnormal . Specimen Source (test code = 2795) DAREN (test code = DAREN) Credit Analysis Manager ID - [auto]Credit Analysis Manager ID - tech Lab Interpretation Abnormal (test code = 46072-9) [facility] Reflex to Culture 2023-03-26 00:52:10 Test Item Value Reference Range Interpretation Comments Color, UA (test code Light Yellow = 5778-6) Clarity, UA (test Clear code = 5767-9) Specific [place], UA 1.021 1.001-1.035 (test code = 5811-5) pH, UA (test code = 6.0 5.0-8.0 5803-2) Protein, UA (test 200 mg/dL Negative A code = 44463-2) Glucose, UA (test 100 mg/dL Negative A code = 365) Ketones, UA (test Negative Negative code = 2514-8) Bilirubin, UA (test Negative Negative code = 22483-3) Blood, UA (test code Negative Negative = 13727-1) Nitrite, UA (test Negative Negative code = 5802-4) Leukocytes, UA (test Negative Negative code = 5799-2) Urobilinogen, UA 0.2 0.2-1.0 (test code = 87552-2) RBC, UA (test code = 0 See_Comment [Autom ated 65166-7) message] The system which generated this result [...] 2 See_Comment [Automate d (test code = 61643-6) messag e] The system which generated this result transmit juan reference range : /HPF. The reference range was not used to interpret this result as normal/abnormal . Specimen Source (test code = 2795) DAREN (test code = DAREN) Credit Analysis Manager ID - [auto]Credit Analysis Manager ID - tech Lab Interpretation Abnormal (test code = 42238-2) [facility]FLEX URINE [id number] 00:52:10 Test Item Value Reference Range Interpretation [...] = 516) SOURCE(BEAKER) (test code = 2795) Credit Analysis Manager ID - [auto]Credit Analysis Manager ID - techPOCT-GLUCOSE [id number] 21:24:09 Test Item Value Reference Range Interpretation Comments POC-GLUCOSE METER 233 mg/dL 70-110 H : TESTED A T [facility] 6720 (BEAKER) (test code = [facility], [facility]8) 29711: Credit Analysis Manager/Techni britney ID = [id number] for MARTHA KOREY REYESNIS POCT-GLUCOSE [id number] 17:50:07 Test Item Value Reference Range Interpretation Comments POC-GLUCOSE METER 180 mg/dL 70-110 H : TESTED A T [facility] 6720 (BEAKER) (test code = [facility], [facility]8) 88063: Credit Analysis Manager/Techni britney ID = [id number] for Am ador, Rafael POCT-GLUCOSE [id number] 14:32:50 Test Item Value Reference Range Interpretation Comments POC-GLUCOSE METER 167 mg/dL 70-110 H : TESTED A T [facility] 6720 (BEAKER) (test code = [facility], 1538) 23985: Credit Analysis Manager/Techni britney ID = [id number] for Marva Fernandez POCT-GLUCOSE [id number] 08:39:13 Test Item Value Reference Range Interpretation Comments POC-GLUCOSE METER 161 mg/dL 70-110 H : TESTED A T [facility] 6720 (BEAKER) (test code = [facility], 1538) 70233: Credit Analysis Manager/Techni britney ID = [id number] for Am ador, Rafael BASIC METABOLIC [id number] 07:02:06 Test Item Value Reference Range Interpretation [...] not appl icable for dialysis patien ts Credit Analysis Manager ID - [id number] 06:37:30 Test Item Value Reference Range Interpretation Comments PHOSPHORUS (BEAKER) (test code = 2.5 mg/dL 2.3-4.7 604) Credit Analysis Manager ID - [id number] 06:37:29 Test Item Value Reference Range Interpretation Comments MAGNESIUM (BEAKER) (test code = 1.6 mg/dL 1.6-2.6 627) Credit Analysis Manager ID - MARCOCBC (HEMOGRAM ONLY)2023-03-25 06:24:37 Test [...] 0-0 (BEAKER) (test code = 413) POCT-GLUCOSE [id number] 21:32:31 Test Item Value Reference Range Interpretation Comments POC-GLUCOSE METER 150 mg/dL 70-110 H : TESTED A T [facility] 6720 (BEAKER) (test code = [facility], 1538) 50997: Credit Analysis Manager/Techni britney ID = [id number] for JAYY THOMAS SE POCT-GLUCOSE [id number] 16:31:16 Test Item Value Reference Range Interpretation Comments POC-GLUCOSE METER 133 mg/dL 70-110 H : TESTED A T [facility] 6720 (BEAKER) (test code [facility], = 1538) 19434: Credit Analysis Manager/Techni britney ID = [id number] for KARLEE Martinez NARCISA Leroy ANDRÉS XR ABDOMEN/KUB 1 VIEW [id number] 14:32:35 [facility] : 1940 Sex: FEXAMINATION: XR ABDOMEN/KUB 1 VIEW PORTABLE INDICATION: constipationCOMPARISON: None FINDINGS/IMPRESSION:Significant retained feces in the ascending colon which may representconstipation. No radiographically apparent urinary calculi. Degenerativechanges throughout the lumbar spine.Electronically Signed By: Michael Rollins 14:34 CDTWorkstation Name: [id number] METER 2023-03-24 13:00:21 Test Item Value Reference Range Interpretation Comments POC-GLUCOSE METER 171 mg/dL 70-110 H : TESTED A T [facility] 6720 (BEAKER) (test code [facility], = 1538) 73673: Credit Analysis Manager/Techni britney ID = [id number] for NARCISA Siddiqi ANDRÉS POCT-GLUCOSE [id number] 08:08:11 Test Item Value Reference Range Interpretation Comments POC-GLUCOSE METER 161 mg/dL 70-110 H : TESTED A T [facility] 6720 (BEAKER) (test code [facility], = 1538) 18926: Credit Analysis Manager/Techni britney ID = [id number] for KARLEE Martinez -NARCISA Melendez ANDRÉS BASIC METABOLIC [id number] 05:08:29 Test Item Value Reference Range Interpretation [...] high >=90 G2 Mildly decreased 60-89 G3a Mild ly to moderately 45-5 9 G3b Moderately to [...] not appl icable for dialysis patien ts Credit Analysis Manager ID - CARLOS EDUARDO [id number] 05:05:35 Test Item Value Reference Range Interpretation Comments MAGNESIUM (BEAKER) (test code = 1.6 mg/dL 1.6-2.6 627) Credit Analysis Manager ID - CARLOS EDUARDO [id number] 05:05:35 Test Item Value Reference Range Interpretation Comments PHOSPHORUS (BEAKER) (test code = 2.8 mg/dL 2.3-4.7 604) Credit Analysis Manager ID - CARLOS EDUARDO WCBC (HEMOGRAM ONLY)2023-03-24 04:34:18 Test Item Value [...] 150-450 code = 756) MEAN PLATELET VOLUME ([facility]) 11.5 fL 9.4-12.3 (test code = 754) NUCLEATED RED BLOOD CELLS 0 /100 WBC 0-0 (AKER) (test code = 413) POCT-GLUCOSE [id number] 20:24:24 Test Item Value Reference Range Interpretation Comments POC-GLUCOSE METER 235 mg/dL 70-110 H : TESTED A T [facility] 6720 ([facility]) (test code = [facility], 1538) 41149: Credit Analysis Manager/Techni britney ID = [id number] for AMANDA ELLER, JULIO POCT-GLUCOSE [id number] 17:11:38 Test Item Value Reference Range Interpretation Comments POC-GLUCOSE METER 283 mg/dL 70-110 H : TESTED A T [facility] 6720 ([facility]) (test code = [facility], 1538) 81633: Credit Analysis Manager/Techni britney ID = [id number] for Perico Guerreroabelle POCT-GLUCOSE [id number] 11:21:23 Test Item Value Reference Range Interpretation Comments POC-GLUCOSE METER 311 mg/dL 70-110 H : [facility] 67[facility] ([facility]) (test code = [facility], 1538) 80175: Credit Analysis Manager/Techni britney ID = [id number] for Mary Pleitez POC-Glucose [id number] 06:47:14 Test Item Value Reference Range Interpretation Comments POC-Glucose Meter (test 199 mg/dL 70-110 H : TE STED AT [facility] code = 1538) 6720 [facility], [address]: Credit Analysis Manager/Techni britney ID = [id number] for DaianasDarnell pebbles Lab Interpretation (test Abnormal code = 03578-0) [facility] [id number] 06:47:14 Test Item Value Reference Range Interpretation Comments POC-GLUCOSE METER 199 mg/dL 70-110 H : TESTED A T [facility] 6720 (BEAKER) (test code [facility], = 1538) 85014: Credit Analysis Manager/Techni britney ID = [id number] for Inez is Mariechella [id number] 03:23:40 Test Item Value Reference Range Interpretation Comments MAGNESIUM (BEAKER) (test code = 1.8 mg/dL 1.6-2.6 627) Credit Analysis Manager ID - [id number] 03:23:40 Test Item Value Reference Range Interpretation Comments PHOSPHORUS (BEAKER) (test code = 4.2 mg/dL 2.3-4.7 604) Credit Analysis Manager ID - BSBASIC METABOLIC [id number] 03:23:39 Test Item Value Reference Range Interpretation [...] not appl icable for dialysis patien ts Credit Analysis Manager ID - BSCBC (HEMOGRAM ONLY)2023-03-23 03:00:27 Test [...] 0-0 (BEAKER) (test code = 413) POCT-GLUCOSE [id number] 23:31:12 Test Item Value Reference Range Interpretation Comments POC-GLUCOSE METER 260 mg/dL 70-110 H : TESTED A T [facility] 6720 (BEAKER) (test code [facility], = 1538) 13272: Credit Analysis Manager/Techni britney ID = [id number] for Torm is, Mariechella POCT-GLUCOSE [id number] 20:51:28 Test Item Value Reference Range Interpretation Comments POC-GLUCOSE METER 256 mg/dL 70-110 H : TESTED A T [facility] 6720 (BEAKER) (test code [facility], = 1538) 88038: Credit Analysis Manager/Techni britney ID = [id number] for Torm is, Mariechella XR CHEST 1 VIEW PORTABLE / [id number] 14:46:00 [facility] : 1940 Sex: FEXAMINATION: XR CHEST 1 [...] Signed By: Angelo Rollins 14:48 CDTWorkstation Name: [id number] 2023-03-22 14:34:09 Test Item Value Reference Range Interpretation Comments MAGNESIUM (BEAKER) (test code = 1.4 mg/dL 1.6-2.6 L 627) Credit Analysis Manager ID - [id number] 14:34:09 Test Item Value Reference Range Interpretation Comments PHOSPHORUS (BEAKER) (test code = 3.7 mg/dL 2.3-4.7 604) Credit Analysis Manager ID - BSBASIC METABOLIC [id number] 14:34:08 Test Item Value Reference Range Interpretation [...] De scription 1092) sq m Result G1 Norm al or high >=90 G2 Mildly decreased 60-89 [...] not appl icable for dialysis patien ts Credit Analysis Manager ID - BSPOCT-GLUCOSE [id number] 13:46:16 Test Item Value Reference Range Interpretation Comments POC-GLUCOSE METER 153 mg/dL 70-110 H : TESTED A T [facility] 6720 (BEAKER) [facility] 1538[facility] 24788: Credit Analysis Manager/Techni britney ID = [id number] for Neville Lo CBC (HEMOGRAM ONLY)2023-03-22 12:39:09 [...] WBC 0-0 (BEAKER) (test code = 413) [facility] [id number] 11:45:00 Test Item Value Reference Range Interpretation Comments CROSSMATCH (test code = COMPATIBLE 2264) Unit ABO (test code = A Neg 8068390) UNIT NUMBER (test code = [id number] 934-0) Status (test code = RETURNED FROM ISSUE 15100827) Blood Bank Product (test RED BLOOD CELLS code = 2263) PRODUCT CODE (test code = [id number] 933-2) [facility] [id number] 11:45:00 Test Item Value Reference Range Interpretation Comments CROSSMATCH (test code = COMPATIBLE 2264) Unit ABO (test code = A Neg 3523389) UNIT NUMBER (test code = [id number] 934-0) Status (test code = RETURNED FROM ISSUE 15100827) Blood Bank Product (test RED BLOOD CELLS code = 2263) PRODUCT CODE (test code = [id number] 933-2) [facility] [id number] 11:45:00 Test Item Value Reference Range Interpretation Comments CROSSMATCH (test code = COMPATIBLE 2264) Unit ABO (test code = A Neg 4653057) UNIT NUMBER (test code = [id number] 934-0) Status (test code = RETURNED FROM ISSUE 15100827) Blood Bank Product (test RED BLOOD CELLS code = 2263) PRODUCT CODE (test code = [id number] 933-2) [facility] [id number] 11:45:00 Test Item Value Reference Range Interpretation Comments CROSSMATCH (test code = COMPATIBLE 2264) Unit ABO (test code = A Neg 6305475) UNIT NUMBER (test code = [id number] 934-0) Status (test code = RETURNED FROM ISSUE 15100827) Blood Bank Product (test RED BLOOD CELLS code = 2263) PRODUCT CODE (test code = [id number] 933-2) [facility]2023-10-05 11:45:00 Test Item Value Reference Range Interpretation Comments CROSSMATCH (test code = COMPATIBLE 2264) Unit ABO (test code = A Neg 3973958) UNIT NUMBER (test code = [id number] 934-0) Status (test code = RETURNED FROM ISSUE 15100827) Blood Bank Product (test RED BLOOD CELLS code = 2263) PRODUCT CODE (test code = [id number] 933-2) [facility] [id number] 11:45:00 Test Item Value Reference Range Interpretation Comments CROSSMATCH (test code = COMPATIBLE 2264) Unit ABO (test code = A Neg 9184503) UNIT NUMBER (test code = [id number] 934-0) Status (test code = RETURNED FROM ISSUE 15100827) Blood Bank Product (test RED BLOOD CELLS code = 2263) PRODUCT CODE (test code = [id number] 933-2) [facility] [id number] 11:45:00 Test Item Value Reference Range Interpretation Comments CROSSMATCH (test code = COMPATIBLE 2264) Unit ABO (test code = A Neg 6843401) UNIT NUMBER (test code = [id number] 934-0) Status (test code = RETURNED FROM ISSUE 15100827) Blood Bank Product (test RED BLOOD CELLS code = 2263) PRODUCT CODE (test code = [id number] 933-2) [facility] [id number] 11:45:00 Test Item Value Reference Range Interpretation Comments CROSSMATCH (test code = COMPATIBLE 2264) Unit ABO (test code = A Neg 4187757) UNIT NUMBER (test code = [id number] 934-0) Status (test code = RETURNED FROM ISSUE 15100827) Blood Bank Product (test RED BLOOD CELLS code = 2263) PRODUCT CODE (test code = [id number] 933-2) [facility] ACTIVATED CLOTTING [id number] 10:37:56 Test Item Value Reference Range Interpretation Comments Activated Clotting Time 293 sec : 74 -137 seconds, (test code = 3184-9) Baselin e: TESTED AT [facility] [address] [facility], [address]: Credit Analysis Manager/Techni britney ID = [id number] for BETZAIDA PÉREZ [facility] ACTIVATED CLOTTING [id number] 10:37:56 Test Item Value Reference Range Interpretation Comments Activated Clotting Time 293 sec : 74 -137 seconds, (test code = 3184-9) Baselin e: TESTED AT [address], 7[address]: Credit Analysis Manager/Techni britney ID = [id number] for BETZAIDA PÉREZ [facility] ACTIVATED CLOTTING [id number] 10:37:56 Test Item Value Reference Range Interpretation Comments Activated Clotting Time 293 sec : 74 -137 seconds, (test code = 3184-9) Baselin e: TESTED AT [address], 770 [address]: Credit Analysis Manager/Techni britney ID = [id number] for BETZAIDA PÉREZ [facility] ACTIVATED CLOTTING [id number] 10:37:56 Test Item Value Reference Range Interpretation Comments Activated Clotting Time 293 sec : 74 -137 seconds, (test code = 3184-9) Baselin e: TESTED AT [address], 770 [address]: Credit Analysis Manager/Techni britney ID = [id number] for BETZAIDA PÉREZ [facility] ACTIVATED CLOTTING [id number] 10:37:56 Test Item Value Reference Range Interpretation Comments Activated Clotting Time 293 sec : 74 -137 seconds, (test code = 3184-9) Baselin e: TESTED AT [address], 770 30: Credit Analysis Manager/Techni britney ID = [id number] for BETZAIDA PÉREZ [facility] ACTIVATED CLOTTING [id number] 10:37:56 Test Item Value Reference Range Interpretation Comments Activated Clotting Time 293 sec : 74 -137 seconds, (test code = 3184-9) Baselin e: TESTED AT [address], [address]: Credit Analysis Manager/Techni britney ID = [id number] for BETZAIDA PÉREZ [facility] ACTIVATED CLOTTING [id number] 10:37:56 Test Item Value Reference Range Interpretation Comments Activated Clotting Time 293 sec : 74 -137 seconds, (test code = 3184-9) Baselin e: TESTED AT [address], [address]: Credit Analysis Manager/Techni britney ID = [id number] for BETZAIDA PÉREZ [facility] ACTIVATED CLOTTING [id number] 10:37:56 Test Item Value Reference Range Interpretation Comments Activated Clotting Time 293 sec : 74 -137 seconds, (test code = 3184-9) Vandana e: TESTED AT [facility] [address] [facility], [address]: Credit Analysis Manager/Techni britney ID = [id number] for [facility]IDA P[facility]Z [id number] 10:37:56 Test Item Value Reference Range Interpretation Comments ACTIVATED CLOTTING TIME 293 sec : 74 -137 seconds, (BEAKER) (test code = Baseli ne: TESTED AT 441) [facility] [address] [facility], [address]: Credit Analysis Manager/Techni britney ID = [id number] for BETZAIDA PÉREZ POCT-GLUCOSE [id number] 06:57:27 Test Item Value Reference Range Interpretation Comments POC-GLUCOSE METER 128 mg/dL 70-110 H : TESTED A T [place] [address] (BEAKER) (test code = [facility], 1538) [address]: Credit Analysis Manager/Techni britney ID = [id number] for HEIDI MEDINA [id number] 01:24:21 Test Item Value Reference Range Interpretation Comments PARTIAL THROMBOPLASTIN TIME 27.1 seconds 22.5-36.0 (BEAKER) (test code = 760) PROTHROMBIN TIME/[id number] 01:23:43 Test Item Value Reference Range Interpretation Comments PROTIME (BEAKER) (test code = 14.9 seconds 11.9-14.2 H 759) INR (BEAKER) (test code = 370) 1.17 <=5.90 RECOMMENDED COUMADIN/WARFARIN INR THERAPY RANGESSTANDARD DOSE: 2.0 - 3.0 Includes: PROPHYLAXIS for venous thrombosis, systemic embolization; TREATMENT for venous thrombosis and/or pulmonary embolus.HIGH RISK: Target INR is 2.5-3.5 for patients with mechanical heart valves.BASIC METABOLIC [id number] 01:21:41 Test Item Value Reference Range Interpretation [...] not appl icable for dialysis patien ts Credit Analysis Manager ID - [id number] 01:21:41 Test Item Value Reference Range Interpretation Comments MAGNESIUM (BEAKER) (test code = 1.5 mg/dL 1.6-2.6 L 627) Credit Analysis Manager ID - [id number] 01:21:41 Test Item Value Reference Range Interpretation Comments PHOSPHORUS (BEAKER) (test code = 3.6 mg/dL 2.3-4.7 604) Credit Analysis Manager ID - BSCBC W/PLT COUNT & AUTO [id number] 01:02:01 Test Item Value Reference Range Interpretation [...] PERCENT (BEAKER) (test code = 2801) POCT-GLUCOSE [id number] 21:31:52 Test Item Value Reference Range Interpretation Comments POC-GLUCOSE METER 192 mg/dL 70-110 H : TESTED Wm T [facility] 67[address] (BEAKER) (test code = [place], 1538) [address]: Credit Analysis Manager/Techni britney ID = [id number] for KATLYN LAURENPRATEEK POCT-GLUCOSE [id number] 17:49:07 Test Item Value Reference Range Interpretation Comments POC-GLUCOSE METER 318 mg/dL 70-110 H : TESTED A Rogelio [facility] 67[address] (FE) (test code = [place], 1538) [address]: Credit Analysis Manager/Techni britney ID = [id number] for KRISTAL HERRERA CTA [id number] 13:49:19 [facility] 1940 Sex: FCTACAROTID, CTA BRAINBRAIN CT WITHOUT CONTRASTINDICATION: Carotid artery stenosisCOMPARISON: CT head ofthe same dateTECHNIQUE:Rapid acquisition spiral images were obtained between the aortic archand the cranial vertex during intravenous contrast infusion toreconstruct axial images and angiographic 3D maximum intensityprojections (MIP). 3-D volumetric reformatted images were created at [employer] workstation. Precontrast images of the brain were [...] vertebrobasilarsystem.Posteriorcerebral arteries: Normal contrast opacification of thebilateral [employer] P1-P2 branches.Venous opacification: Major dural sinuses unremarkable [...] Signed By: Mora Rivas03/21/2023 13:51 CDTWorkstation Name: [id number] 13:49:19[facility] : 1940 Sex: FCTACAROTID, CTA BRAINBRAIN CT WITHOUT CONTRASTINDICATION: Carotid artery stenosisCOMPARISON: CT head ofthe same dateTECHNIQUE:Rapid acquisition spiral images were obtained between the aortic archand the cranial vertex during intravenous contrast infusion toreconstruct axial images and angiographic 3D maximum intensityprojections (MIP). 3-D volumetric reformatted images were created at [employer] workstation. Precontrast images of the brain were [...] vertebrobasilarsystem.Posteriorcerebral arteries: Normal contrast opacification of thebilateral [employer] P1-P2 branches.Venous opacification: Major dural sinuses unremarkable [...] Signed By: Mora Rivas03/21/2023 13:51 CDTWorkstation Name: [id number] METER 2023-03-21 13:25:23 Test Item Value Reference Range Interpretation Comments POC-GLUCOSE METER 154 mg/dL 70-110 H : TESTED A T [facility] 67[address] (FE) (test code = [place], 1538) [address]: Credit Analysis Manager/Techni britney ID = [id number] for KRISTAL HERRERA POCT-GLUCOSE [id number] 08:49:35 Test Item Value Reference Range Interpretation Comments POC-GLUCOSE METER 122 mg/dL 70-110 H : TESTED A T [facility] [address] (BEAKER) (test code = [place], 1538) [address]: Credit Analysis Manager/Techni britney ID = [id number] for KRISTAL HERRERA [id number] 04:30:30 Test Item Value Reference Range Interpretation Comments MAGNESIUM (BEAKER) (test code = 1.6 mg/dL 1.6-2.6 627) Credit Analysis Manager ID - BSBASIC METABOLIC [id number] 04:30:29 Test Item Value Reference Range Interpretation [...] eGF R is based on the CKD-EPI 2021 equation that d oes not use a race coefficientEsti mated GFR is not as accur ate as Creatinine Mikaela velasco in predicting glom erular filtration rate . Estimated GFR is not appl icable for dialysis patien ts Credit Analysis Manager ID - BSCBC W/PLT COUNT & AUTO [id number] 04:06:01 Test Item Value Reference Range Interpretation [...] PERCENT (BEAKER) (test code = 2801) POCT-GLUCOSE [id number] 22:29:44 Test Item Value Reference Range Interpretation Comments POC-GLUCOSE METER 126 mg/dL 70-110 H : TESTED A T [facility] [address] (BEAKER) (test code = [place] [facility], 1538) [address]: Credit Analysis Manager/Techni britney ID = [id number] for PRATEEK MOY POCT-GLUCOSE [id number] 16:59:22 Test Item Value Reference Range Interpretation Comments POC-GLUCOSE METER 179 mg/dL 70-110 H : TESTED A T [facility] [address] (BEAKER) (test code = [place] [facility] [facility], 1538) [address]: Credit Analysis Manager/Techni britney ID = [id number] for JEFERSON MORENO Urinalysis w/Uhcosqoazie4844-65-61 13:47:21 Test Item Value Reference Range Interpretation Comments Color, UA (test code Light Yellow = 5778-6) Clarity, UA (test Clear code = 5767-9) Specific [place], UA 1.014 1.001-1.035 (test code = 5811-5) pH, UA (test code = 7.5 5.0-8.0 5803-2) Protein, UA (test 300 mg/dL Negative A code = 71205-8) Glucose, UA (test 100 mg/dL Negative A code = 365) Ketones, UA (test Trace Negative A code = 2514-8) Bilirubin, UA (test Negative Negative code = 51249-1) Blood, UA (test code Negative Negative = 54150-0) Nitrite, UA (test Negative Negative code = 5802-4) Leukocytes, UA (test Negative Negative code = 5799-2) Urobilinogen, UA 0.2 0.2-1.0 (test code = 33523-6) RBC, UA (test code = 1 See_Comment [Autom ated 20748-6) message] The system which generated this result [...] 1 See_Comment [Automate d (test code = 13054-0) messag e] The system which generated this result transmit juan reference range : /HPF. The reference range was not used to interpret this result as normal/abnormal . Hyaline Casts, UA 5 See_Comment [Automate d (test code = 91770-1) messag e] The system which generated this result transmit juan reference range : /LPF. The reference range was not used to interpret this result as normal/abnormal . Specimen Source (test Urine, Clean code = 2795) Catch DAREN (test code = DAREN) Credit Analysis Manager ID - [auto]Credit Analysis Manager ID - tech Lab Interpretation Abnormal (test code = 81710-1) [facility]/Sadparrtxry4991-68-74 13:47:21 Test Item Value Reference Range Interpretation Comments Color, UA (test code Light Yellow = 5778-6) Clarity, UA (test Clear code = 5767-9) Specific [place], UA 1.014 1.001-1.035 (test code = 5811-5) pH, UA (test code = 7.5 5.0-8.0 5803-2) Protein, UA (test 300 mg/dL Negative A code = 13502-8) Glucose, UA (test 100 mg/dL Negative A code = 365) Ketones, UA (test Trace Negative A code = 2514-8) Bilirubin, UA (test Negative Negative code = 34447-4) Blood, UA (test code Negative Negative = 55946-3) Nitrite, UA (test Negative Negative code = 5802-4) Leukocytes, UA (test Negative Negative code = 5799-2) Urobilinogen, UA 0.2 0.2-1.0 (test code = 44191-2) RBC, UA (test code = 1 See_Comment [Autom ated 67173-2) message] The system which generated this result [...] 1 See_Comment [Automate d (test code = 37141-7) messag e] The system which generated this result transmit juan reference range : /HPF. The reference range was not used to interpret this result as normal/abnormal . Hyaline Casts, UA 5 See_Comment [Automate d (test code = 25584-8) messag e] The system which generated this result transmit juan reference range : /LPF. The reference range was not used to interpret this result as normal/abnormal . Specimen Source (test Urine, Clean code = 2795) Catch DAREN (test code = DAREN) Credit Analysis Manager ID - [auto]Credit Analysis Manager ID - tech Lab Interpretation Abnormal (test code = 95930-7) [facility]/Fctazinxpag5020-69-16 13:47:21 Test Item Value Reference Range Interpretation Comments Color, UA (test code Light Yellow = 5778-6) Clarity, UA (test Clear code = 5767-9) Specific [place], UA 1.014 1.001-1.035 (test code = 5811-5) pH, UA (test code = 7.5 5.0-8.0 5803-2) Protein, UA (test 300 mg/dL Negative A code = 59609-9) Glucose, UA (test 100 mg/dL Negative A code = 365) Ketones, UA (test Trace Negative A code = 2514-8) Bilirubin, UA (test Negative Negative code = 81075-8) Blood, UA (test code Negative Negative = 16628-2) Nitrite, UA (test Negative Negative code = 5802-4) Leukocytes, UA (test Negative Negative code = 5799-2) Urobilinogen, UA 0.2 0.2-1.0 (test code = 71162-9) RBC, UA (test code = 1 See_Comment [Autom ated 83978-5) message] The system which generated this result [...] 1 See_Comment [Automate d (test code = 28130-4) messag e] The system which generated this result transmit juan reference range : /HPF. The reference range was not used to interpret this result as normal/abnormal . Hyaline Casts, UA 5 See_Comment [Automate d (test code = 78522-4) messag e] The system which generated this result transmit juan reference range : /LPF. The reference range was not used to interpret this result as normal/abnormal . Specimen Source (test Urine, Clean code = 2795) Catch DAREN (test code = DAREN) Credit Analysis Manager ID - [auto]Credit Analysis Manager ID - tech Lab Interpretation Abnormal (test code = 68414-8) [facility]/Jineqtihulu1201-53-85 13:47:21 Test Item Value Reference Range Interpretation Comments Color, UA (test code Light Yellow = 5778-6) Clarity, UA (test Clear code = 5767-9) Specific [place], UA 1.014 1.001-1.035 (test code = 5811-5) pH, UA (test code = 7.5 5.0-8.0 5803-2) Protein, UA (test 300 mg/dL Negative A code = 90744-1) Glucose, UA (test 100 mg/dL Negative A code = 365) Ketones, UA (test Trace Negative A code = 2514-8) Bilirubin, UA (test Negative Negative code = 28847-9) Blood, UA (test code Negative Negative = 76206-0) Nitrite, UA (test Negative Negative code = 5802-4) Leukocytes, UA (test Negative Negative code = 5799-2) Urobilinogen, UA 0.2 0.2-1.0 (test code = 13795-4) RBC, UA (test code = 1 See_Comment [Autom ated 75624-8) message] The system which generated this result [...] 1 See_Comment [Automate d (test code = 73857-7) messag e] The system which generated this result transmit juan reference range : /HPF. The reference range was not used to interpret this result as normal/abnormal . Hyaline Casts, UA 5 See_Comment [Automate d (test code = 36274-8) messag e] The system which generated this result transmit juan reference range : /LPF. The reference range was not used to interpret this result as normal/abnormal . Specimen Source (test Urine, Clean code = 2795) Catch DAREN (test code = DAREN) Credit Analysis Manager ID - [auto]Credit Analysis Manager ID - tech Lab Interpretation Abnormal (test code = 62357-5) [facility]/Jjmcvfefxpc5360-02-25 13:47:21 Test Item Value Reference Range Interpretation Comments Color, UA (test code Light Yellow = 5778-6) Clarity, UA (test Clear code = 5767-9) Specific [place], UA 1.014 1.001-1.035 (test code = 5811-5) pH, UA (test code = 7.5 5.0-8.0 5803-2) Protein, UA (test 300 mg/dL Negative A code = 71063-9) Glucose, UA (test 100 mg/dL Negative A code = 365) Ketones, UA (test Trace Negative A code = 2514-8) Bilirubin, UA (test Negative Negative code = 52817-9) Blood, UA (test code Negative Negative = 95808-7) Nitrite, UA (test Negative Negative code = 5802-4) Leukocytes, UA (test Negative Negative code = 5799-2) Urobilinogen, UA 0.2 0.2-1.0 (test code = 15889-1) RBC, UA (test code = 1 See_Comment [Autom ated 72742-1) message] The system which generated this result [...] 1 See_Comment [Automate d (test code = 05850-9) messag e] The system which generated this result transmit juan reference range : /HPF. The reference range was not used to interpret this result as normal/abnormal . Hyaline Casts, UA 5 See_Comment [Automate d (test code = 44606-6) messag e] The system which generated this result transmit juan reference range : /LPF. The reference range was not used to interpret this result as normal/abnormal . Specimen Source (test Urine, Clean code = 2795) Catch DAREN (test code = DAREN) Credit Analysis Manager ID - [auto]Credit Analysis Manager ID - tech Lab Interpretation Abnormal (test code = 47967-9) [facility] w/Robzdkbfhyy8492-13-79 13:47:21 Test Item Value Reference Range Interpretation Comments Color, UA (test code Light Yellow = 5778-6) Clarity, UA (test Clear code = 5767-9) Specific [place], UA 1.014 1.001-1.035 (test code = 5811-5) pH, UA (test code = 7.5 5.0-8.0 5803-2) Protein, UA (test 300 mg/dL Negative A code = 54385-3) Glucose, UA (test 100 mg/dL Negative A code = 365) Ketones, UA (test Trace Negative A code = 2514-8) Bilirubin, UA (test Negative Negative code = 92857-3) Blood, UA (test code Negative Negative = 97365-5) Nitrite, UA (test Negative Negative code = 5802-4) Leukocytes, UA (test Negative Negative code = 5799-2) Urobilinogen, UA 0.2 0.2-1.0 (test code = 30876-9) RBC, UA (test code = 1 See_Comment [Autom ated 19745-6) message] The system which generated this result [...] 1 See_Comment [Automate d (test code = 63227-6) messag e] The system which generated this result transmit juan reference range : /HPF. The reference range was not used to interpret this result as normal/abnormal . Hyaline Casts, UA 5 See_Comment [Automate d (test code = 81959-5) messag e] The system which generated this result transmit juan reference range : /LPF. The reference range was not used to interpret this result as normal/abnormal . Specimen Source (test Urine, Clean code = 2795) Catch DAREN (test code = DAREN) Credit Analysis Manager ID - [auto]Credit Analysis Manager ID - tech Lab Interpretation Abnormal (test code = 88034-3) [facility] w/Ngkhveiwfez1421-73-77 13:47:21 Test Item Value Reference Range Interpretation Comments Color, UA (test code Light Yellow = 5778-6) Clarity, UA (test Clear code = 5767-9) Specific [place], UA 1.014 1.001-1.035 (test code = 5811-5) pH, UA (test code = 7.5 5.0-8.0 5803-2) Protein, UA (test 300 mg/dL Negative A code = 16323-1) Glucose, UA (test 100 mg/dL Negative A code = 365) Ketones, UA (test Trace Negative A code = 2514-8) Bilirubin, UA (test Negative Negative code = 40914-1) Blood, UA (test code Negative Negative = 20715-0) Nitrite, UA (test Negative Negative code = 5802-4) Leukocytes, UA (test Negative Negative code = 5799-2) Urobilinogen, UA 0.2 0.2-1.0 (test code = 11160-4) RBC, UA (test code = 1 See_Comment [Autom ated 08293-8) message] The system which generated this result [...] 1 See_Comment [Automate d (test code = 34700-0) messag e] The system which generated this result transmit juan reference range : /HPF. The reference range was not used to interpret this result as normal/abnormal . Hyaline Casts, UA 5 See_Comment [Automate d (test code = 61916-6) messag e] The system which generated this result transmit juan reference range : /LPF. The reference range was not used to interpret this result as normal/abnormal . Specimen Source (test Urine, Clean code = 2795) Catch DAREN (test code = DAREN) Credit Analysis Manager ID - [auto]Credit Analysis Manager ID - tech Lab Interpretation Abnormal (test code = 87497-0) [facility]/Nsjrmttyktd2391-71-93 13:47:21 Test Item Value Reference Range Interpretation Comments Color, UA (test code Light Yellow = 5778-6) Clarity, UA (test Clear code = 5767-9) Specific [place], UA 1.014 1.001-1.035 (test code = 5811-5) pH, UA (test code = 7.5 5.0-8.0 5803-2) Protein, UA (test 300 mg/dL Negative A code = 40198-9) Glucose, UA (test 100 mg/dL Negative A code = 365) Ketones, UA (test Trace Negative A code = 2514-8) Bilirubin, UA (test Negative Negative code = 60881-2) Blood, UA (test code Negative Negative = 72131-5) Nitrite, UA (test Negative Negative code = 5802-4) Leukocytes, UA (test Negative Negative code = 5799-2) Urobilinogen, UA 0.2 0.2-1.0 (test code = 12027-9) RBC, UA (test code = 1 See_Comment [Autom ated 65062-6) message] The system which generated this result [...] 1 See_Comment [Automate d (test code = 10507-6) messag e] The system which generated this result transmit juan reference range : /HPF. The reference range was not used to interpret this result as normal/abnormal . Hyaline Casts, UA 5 See_Comment [Automate d (test code = 81212-6) messag e] The system which generated this result transmit juan reference range : /LPF. The reference range was not used to interpret this result as normal/abnormal . Specimen Source (test Urine, Clean code = 2795) Catch DAREN (test code = DAREN) Credit Analysis Manager ID - [auto]Credit Analysis Manager ID - tech Lab Interpretation Abnormal (test code = 06940-6) [facility]/ [id number] 13:47:21 Test Item Value Reference Range Interpretation [...] (test code Urine, Clean Catch = 2795) Credit Analysis Manager ID - [auto]Credit Analysis Manager ID - techXR CHEST 1 VIEW PORTABLE / BEDSIDE 2023-03-20 12:55:26 [facility] : 1940 Sex: FXR CHEST 1 VIEW PORTABLE / BEDSIDEINDICATION: sobCOMPARISON: NoneFINDINGS: Portable frontal view of the chest. IMPRESSION:Support Lines: None Lungs and pleura: Lungs are clear. No large effusion. No pneumothorax.Heart and mediastinum: Unremarkable for AP technique. Additional findings: Left shoulder arthroplasty changes present.Electronically Signed By: Zhang Joya03/20/2023 12:57 CDTWorkstation Name:[id number] 12:25:24 Test Item Value Reference Range Interpretation Comments POC-GLUCOSE METER 180 mg/dL 70-110 H : TESTED A T [facility] 67[address] (FE) (test code = [place], 1538) [address]: Credit Analysis Manager/Techni britney ID = [id number] for HI DALGO, AGLAE CT BRAIN WITHOUT IV [id number] 10:21:42 [facility] : 1940 Sex: FCT BRAIN [...] is persistent clinical concern for intracranial pathology, MRshould be considered for further characterization. Electronically Signed By: Davidson Short 10:23 CDTWorkstation Name: [id number] METER 2023-03-20 07:44:14 Test Item Value Reference Range Interpretation Comments POC-GLUCOSE METER 169 mg/dL 70-110 H : TESTED A T [facility] 6720 (BEAKER) (test code = [place], 1538) [address]: Credit Analysis Manager/Techni britney ID = [id number] for Svetlana Myers [id number] 07:27:55 Test Item Value Reference Range Interpretation Comments MAGNESIUM (BEAKER) (test code = 1.5 mg/dL 1.6-2.6 L 627) BASIC METABOLIC [id number] 07:27:55 Test Item Value Reference Range Interpretation [...] patien ts CBC W/PLT COUNT & AUTO [id number] 04:39:39 Test Item Value Reference Range Interpretation [...] PERCENT (BEAKER) (test code = 2801) POCT-GLUCOSE [id number] 20:45:24 Test Item Value Reference Range Interpretation Comments POC-GLUCOSE METER 161 mg/dL 70-110 H : TESTED A T [facility] 6720 (BEAKER) (test code = [facility], 153) [address]: Credit Analysis Manager/Techni britney ID = [id number] for PRATEEK MOY POCT-GLUCOSE [id number] 17:09:42 Test Item Value Reference Range Interpretation Comments POC-GLUCOSE METER 80 mg/dL 70-110 : TESTED A T [facility] 6720 (BEAKER) (test code = [facility], 153) [address]: Credit Analysis Manager/Techni britney ID = [id number] for Amad or, Rafael BASIC METABOLIC [id number] 13:14:47 Test Item Value Reference Range Interpretation [...] G3b Moderately to s everely 30-44 G4 Sever ly decreased 15-29 G5 Kidney failure <15Repo rted eGFR is based on the CKD-EPI 2020 equation t hat does not use a race coefficientEsti mated GFR is not as accur ate as Creatinine Mikaela krista in predicting glom erular filtration rate . Estimated GFR is not appl icable for dialysis patien ts Credit Analysis Manager ID - [id number] 13:14:47 Test Item Value Reference Range Interpretation Comments MAGNESIUM (FE) (test code = 2.1 mg/dL 1.6-2.6 627) Credit Analysis Manager ID - [id number] 12:55:18 Test Item Value Reference Range Interpretation Comments RPR SCREEN (FE) (test code = Nonreactive Nonreactive 420) HEMOGLOBIN [id number] 12:29:58 Test Item Value Reference Range Interpretation Comments HEMOGLOBIN A1C 6.5 % See_Comment H [Automated m essage] ELECTROPHORESIS (FE) The system which (test code = 3811) generated this result transmitted ref erence range: <=5.6%. The reference range was not used to int erpret this result as normal/abnormal . "The A1c is measured using a NGSP-certified method. HbA1c value equal to or greater than 6.5% as thediagnosis cutoff for diabetes. An HbA1c value of 5.7- 6.4% indicates increased risk for diabetes (prediabetes)."Credit Analysis Manager ID - ADMOperator ID - ADMPOCT-GLUCOSE [id number] 11:19:20 Test Item Value Reference Range Interpretation Comments POC-GLUCOSE METER 82 mg/dL 70-110 : TESTED A T [facility] 6720 (BEAKER) (test code = [place], 1538) [address]: Credit Analysis Manager/Techni britney ID = [id number] for Amad or, Rafael POCT-GLUCOSE [id number] 08:36:28 Test Item Value Reference Range Interpretation Comments POC-GLUCOSE METER 79 mg/dL 70-110 : TESTED A T [facility] 6720 (BEAKER) (test code = [place], 1538) [address]: Credit Analysis Manager/Techni britney ID = [id number] for Amad or, Rafael [id number] 05:07:43 Test Item Value Reference Range Interpretation Comments MAGNESIUM (BEAKER) (test code = 1.0 mg/dL 1.6-2.6 LL 627) Credit Analysis Manager ID - CARLOS EDUARDO WBASIC METABOLIC [id number] 04:41:48 Test Item Value Reference Range Interpretation [...] eGF R is based on the CKD-EPI 1 equation that d oes not use a race coefficientEsti mated GFR is not as accur ate as Creatinine Mikaela velasco in predicting glom erular filtration rate . Estimated GFR is not appl icable for dialysis patien ts Credit Analysis Manager ID - CARLOS EDUARDO WVITAMIN [id number] 04:08:22 Test Item Value Reference Range Interpretation Comments VITAMIN B12 (BEAKER) (test code = 307 pg/mL [phone]) Credit Analysis Manager ID - CARLOS EDUARDO WTSH/FREE T4 IF [id number] 04:08:22 Test Item Value Reference Range Interpretation Comments THYROID STIMULATING HORMONE 2.177 uIU/mL 0.350-4.940 (BEAKER) (test code = 772) Credit Analysis Manager ID - CARLOS EDUARDO ATKINSONETONE, [id number] 04:01:33 Test Item Value Reference Range Interpretation Comments KETONES, BLOOD (BEAKER) (test code 0.1 mmol/L <0.4 = 1103) CBC W/PLT COUNT & AUTO [id number] 03:57:21 Test Item Value Reference Range Interpretation [...] code = 2801) HIV-1 ANTIGEN WITH HIV-1/2 [id number] 02:15:23 Test Item Value Reference Range Interpretation Comments HIV-1 ANTIGEN WITH HIV 1\\T\\2 Nonreactive Nonreactive ANTIBODY (2) (BEAKER) (test code = 2586) Credit Analysis Manager ID - LONNIE BLIPID [id number] 01:04:20 Test Item Value Reference Range Interpretation Comments TRIGLYCERIDES (BEAKER) 95 mg/dL Speci men slightly (test code = 540) hemolyzed CHOLESTEROL (BEAKER) 86 mg/dL Specime n slightly (test code = 631) hemolyzed HDL CHOLESTEROL (BEAKER) 37 mg/dL (test code = 976) LDL CHOLESTEROL 30 mg/dL CALCULATED (BEAKER) (test code = 633) Triglyceride Reference Range: Low Risk <150 Borderline 150-199 High Risk 200- 499 Very High Risk >=500Cholesterol Reference Range: Low Risk <200 Borderline 200-239 High Risk >240HDL Cholesterol Reference Range: Low Risk >=60 High Risk <40LDL Cholesterol Reference Range: Optimal <100 Near Optimal 100-129 Borderline 130-159 High 160-189 Very High >=190 Credit Analysis Manager ID - LONNIE BC-REACTIVE [id number] 01:04:20 Test Item Value Reference Range Interpretation Comments C-REACTIVE PROTEIN (BEAKER) (test 0.08 mg/dL 0.00-0.50 code = 676) Credit Analysis Manager ID - LONNIE BGlucose [Mass/volume] in Capillary [id number] 09:12:48 Test Item Value Reference Range Interpretation Comments Blood Glucose: mg/dl (test code = Blood 158 Glucose: mg/dl) [facility] PracticeGlucose [Mass/volume] in Capillary [id number] 12:12:08 Test Item Value Reference Range Interpretation Comments Blood Glucose: mg/dl (test code = Blood 144 Glucose: mg/dl) [facility] PracticeGlucose [Mass/volume] in Capillary [id number] 11:16:24 Test Item Value Reference Range Interpretation Comments Blood Glucose: mg/dl (test code = Blood 286 Glucose: mg/dl) [facility] PracticeGlucose [Mass/volume] in Capillary [id number] 14:52:13 Test Item Value Reference Range Interpretation Comments Blood Glucose: mg/dl (test code = Blood 243 Glucose: mg/dl) [facility]- XR FLUORO FOR SPINE [id number] 18:07:00 [facility] 1940 Sex: F Patient Name: AMANDA NDIAYE Unit No: [id number] EXAMS: CPT CODE: [id number] XR FLUORO FOR SPINE INJ 27256 LUMBAR EPIRADICULAR INJECTION REFERRAL PHYSICIAN: Dr. Madrid PREOPERATIVE DIAGNOSIS: Lumbar Radiculitis POSTOPERATIVE DIAGNOSIS: Same as above PROCEDURES PERFORMED: Fluoroscopically guided needle localization of the right L3, L4, L5 spinal nerves with transforaminal epidurograms and epidural injection of local anesthetic and steroid. FINDINGS: Preinjection VAS 6/10. Postinjection VAS 0/10.Steroid response pending follow-up. ESTIMATED BLOOD LOSS: Minimal [...] Technologist: MICHELL SOTO (RT.R) Transcribed D/ (1806) [facility] NAME: AMANDA NDIAYE [address] [facility] PHYS: Phillip Ladd MD [place], [place] [address] : 1940 AGE: 81 SEX: F LOC: CHON PHONE #: [phone] EXAM DATE: 12/16/2021 STATUS: [facility] FAX #: [phone] RAD #: [id number] D/C DT PAGE 1 Signed Report Patient Name: AMANDA NDIAYE Unit No: [id number] EXAMS: CPT CODE: [id number] XR FLUORO FOR SPINE INJ 05597 (Continued) Orig Print D/T: S: 12/23/2021 (1809) [place] [facility] NAME: AMANDA NDIAYE [address] [facility] PHYS: Phillip Ladd MD [place], [place] [address] : 1940 AGE: 81 SEX: F LOC: CHON PHONE #: [phone] EXAM DATE: 12/16/2021 STATUS: [facility] FAX #: [phone] RAD #: [id number] D/C DT PAGE 2 Signed ReportGlucose [Mass/volume] in Capillary [id number] 08:37:03 Test Item Value Reference Range Interpretation Comments Blood Glucose: mg/dl (test code = Blood 220 Glucose: mg/dl) [facility]DDH0761[facility]-88 14:01:00 Test Item Value Reference Range Interpretation Comments GLUBED (test code = GLUBED) 144 mg/dL 60-125 H [id number] 12:03:00 Test Item Value Reference Range Interpretation Comments GLUBED (test code = GLUBED) 138 mg/dL 60-125 H Hemoglobin A1c measurement device [id number] 14:11:19 Test Item Value Reference Range Interpretation Comments Hemoglobin A1C Fingerstick: (test code 7.2 = Hemoglobin A1C Fingerstick:) [facility] in Capillary [id number] 14:04:17 Test Item Value Reference Range Interpretation Comments Blood Glucose: mg/dl (test code = Blood 190 Glucose: mg/dl) [facility]] in Capillary [id number] 13:54:58 Test Item Value Reference Range Interpretation Comments Blood Glucose: mg/dl (test code = Blood 167 Glucose: mg/dl) [facility]em[facility] [id number] 12:17:07 Test Item Value Reference Range Interpretation Comments Hemoglobin A1C Fingerstick: (test code 8.4 = Hemoglobin A1C Fingerstick:) [facility] [Mass/volume] in Capillary [id number] 12:14:41 Test Item Value Reference Range Interpretation Comments Blood Glucose: mg/dl (test code = Blood 212 Glucose: mg/dl) [facility] [id number] 09:05:00 Test Item Value Reference Range Interpretation Comments Magnesium Lvl (test code = Magnesium 1.8 1.8-2.4 Lvl) [facility]2016-08-01 09:05:00 Test Item Value Reference Range Interpretation Comments Phosphorus (test code = Phosphorus) 2.4 2.5-4.5 [facility]2016-08-01 09:05:00 Test Item Value Reference Range Interpretation Comments CO2 (test code = CO2) 30 24-32 [facility]2016-08-01 09:05:00 Test Item Value Reference Range Interpretation Comments Glucose Lvl (test code = Glucose Lvl) 240 70-99 [facility]2016-08-01 09:05:00 Test Item Value Reference Range Interpretation Comments Creatinine Lvl (test code = Creatinine 0.80 0.50-1.40 Lvl) [facility]2016-08-01 09:05:00 Test Item Value Reference Range Interpretation Comments BUN (test code = BUN) 20 7-22 [facility]2016-08-01 09:05:00 Test Item Value Reference Range Interpretation Comments eGFR (test code = eGFR) 73 [facility]2016-08-01 09:05:00 Test Item Value Reference Range Interpretation Comments Albumin Lvl (test code = Albumin Lvl) 2.8 3.5-5.0 [facility]2016-08-01 09:05:00 Test Item Value Reference Range Interpretation Comments Calcium Lvl (test code = Calcium Lvl) 10.5 8.5-10.5 [facility]2016-08-01 09:05:00 Test Item Value Reference Range Interpretation Comments Potassium Lvl (test code = Potassium 4.3 3.5-5.1 Lvl) [facility]2016-08-01 09:05:00 Test Item Value Reference Range Interpretation Comments Chloride Lvl (test code = Chloride Lvl) 107 95-109 [facility]2016-08-01 09:05:00 Test Item Value Reference Range Interpretation Comments Sodium Lvl (test code = Sodium Lvl) 143 135-145 [facility]2016-08-01 09:05:00 Test Item Value Reference Range Interpretation Comments AGAP (test code = AGAP) 10.3 10.0-20.0 [facility] PasoUchedmoZWFFKWIGTU5665-11-52 09:05:00 Test Item Value Reference Range Interpretation Comments Lymphocytes # (test code = Lymphocytes 1.3 1.0-5.5 #) [facility] [id number] 09:05:00 Test Item Value Reference Range Interpretation Comments Segs-Bands # (test code = Segs-Bands #) 4.4 1.5-8.1 [facility] PasoAuhcmggEWTPBHADOM1264-82-81 09:05:00 Test Item Value Reference Range Interpretation Comments Eosinophils # (test code 0.3 See_Comment [A utomated message] The = Eosinophils #) system wh h generated this result tra nsmitted reference range : <=0.5. The reference r leatha was not used to int erpret this result as normal/abnormal . [facility] PasoZkcodsrKUJGRPQPME9067-51-79 09:05:00 Test Item Value Reference Range Interpretation Comments Monocytes # (test code 0.6 See_Comment [Aut omated message] The = Monocytes #) system which generated this result tra nsmitted reference range : <=0.8. The reference r leatha was not used to int erpret this result as normal/abnormal . [facility] PasoWjhiizlIEPTNCZMLU4289-02-48 09:05:00 Test Item Value Reference Range Interpretation Comments Basophils (test code = 0.5 See_Comment [Aut omated message] The Basophils) system which ge nerated this result tra nsmitted reference range : <=1.0. The reference r leatha was not used to int erpret this result as normal/abnormal . [facility] PasoChahvyaPPVJCBYTZS9762-33-19 09:05:00 Test Item Value Reference Range Interpretation Comments Eosinophils (test code = 4.9 See_Comment [A utomated message] The Eosinophils) system which ge nerated this result tra nsmitted reference range : <=4.0. The reference r leatha was not used to int erpret this result as normal/abnormal . [facility] PasoQjzmqrdMSIBGEOSHL2747-04-81 09:05:00 Test Item Value Reference Range Interpretation Comments Monocytes (test code = Monocytes) 9.1 2.0-12.0 [facility] PasoHemzalnBVTZPOUOTJ6875-67-74 09:05:00 Test Item Value Reference Range Interpretation Comments Lymphocytes (test code = Lymphocytes) 18.9 20.0-40.0 [facility] PasoMptsjiqTIVZFGGQIG9470-02-72 09:05:00 Test Item Value Reference Range Interpretation Comments Segs (test code = Segs) 66.6 45.0-75.0 [facility]XrhyhkkOJSERVXCKR7074-53-65 09:05:00 Test Item Value Reference Range Interpretation Comments MPV (test code = MPV) 9.4 7.4-10.4 [facility] HospitalRbollzuMDYKYLIOXQ1681-42-57 09:05:00 Test Item Value Reference Range Interpretation Comments Platelet (test code = Platelet) 168 133-450 [facility] HospitalYjjzjujLBGKIWEENU1591-46-71 09:05:00 Test Item Value Reference Range Interpretation Comments RDW (test code = RDW) 13.4 11.5-14.5 [facility] HospitalYxbigehFYTWXGZEBJ7794-52-30 09:05:00 Test Item Value Reference Range Interpretation Comments MCHC (test code = MCHC) 32.8 32.0-36.0 [facility] HospitalFmogapfUVNJDFTOAZ4618-46-91 09:05:00 Test Item Value Reference Range Interpretation Comments MCH (test code = MCH) 30.7 pg 27.0-31.0 [facility] HospitalUsytvxaHBPABKCKAO1391-84-18 09:05:00 Test Item Value Reference Range Interpretation Comments MCV (test code = MCV) 93.6 80.0-98.0 [facility] HospitalMjxdgbqVTLSYSOVEH5259-24-34 09:05:00 Test Item Value Reference Range Interpretation Comments WBC (test code = WBC) 6.6 3.7-10.4 [facility] HospitalZaeqwdeRHUTKYAOCN0963-65-56 09:05:00 Test Item Value Reference Range Interpretation Comments Hct (test code = Hct) 41.0 36.0-48.0 [facility] HospitalRhmakikTLPVPDCWXM6933-47-35 09:05:00 Test Item Value Reference Range Interpretation Comments Hgb (test code = Hgb) 13.4 12.0-16.0 [facility] FallsFkwbhjgNCYVBONRPS6286-78-85 09:05:00 Test Item Value Reference Range Interpretation Comments RBC (test code = RBC) 4.38 4.20-5.40 [facility] IDWMNGSPK9217-70-96 09:05:00 Test Item Value Reference Range Interpretation Comments Hgb A1C (test code = Hgb A1C) 10.3 [facility] FallsCHEM [id number] 09:05:00 Test Item Value Reference Range Interpretation Comments Magnesium Lvl (test code = Magnesium 1.8 1.8-2.4 Lvl) [facility]2016-08-01 09:05:00 Test Item Value Reference Range Interpretation Comments Phosphorus (test code = Phosphorus) 2.4 2.5-4.5 [facility]2016-08-01 09:05:00 Test Item Value Reference Range Interpretation Comments CO2 (test code = CO2) 30 24-32 [facility]2016-08-01 09:05:00 Test Item Value Reference Range Interpretation Comments Glucose Lvl (test code = Glucose Lvl) 240 70-99 [facility]2016-08-01 09:05:00 Test Item Value Reference Range Interpretation Comments Creatinine Lvl (test code = Creatinine 0.80 0.50-1.40 Lvl) [facility]2016-08-01 09:05:00 Test Item Value Reference Range Interpretation Comments BUN (test code = BUN) 20 7-22 [facility]2016-08-01 09:05:00 Test Item Value Reference Range Interpretation Comments eGFR (test code = eGFR) 73 [facility]2016-08-01 09:05:00 Test Item Value Reference Range Interpretation Comments Albumin Lvl (test code = Albumin Lvl) 2.8 3.5-5.0 [facility]2016-08-01 09:05:00 Test Item Value Reference Range Interpretation Comments Calcium Lvl (test code = Calcium Lvl) 10.5 8.5-10.5 [facility]2016-08-01 09:05:00 Test Item Value Reference Range Interpretation Comments Potassium Lvl (test code = Potassium 4.3 3.5-5.1 Lvl) [facility]2016-08-01 09:05:00 Test Item Value Reference Range Interpretation Comments Chloride Lvl (test code = Chloride Lvl) 107 95-109 [facility]2016-08-01 09:05:00 Test Item Value Reference Range Interpretation Comments Sodium Lvl (test code = Sodium Lvl) 143 135-145 [facility]2016-08-01 09:05:00 Test Item Value Reference Range Interpretation Comments AGAP (test code = AGAP) 10.3 10.0-20.0 [facility] HospitalDyjdnfzWJKMIGMMUD7225-07-57 09:05:00 Test Item Value Reference Range Interpretation Comments Lymphocytes # (test code = Lymphocytes 1.3 1.0-5.5 #) [facility] PasoJsjiikaMMPYQWRNIP0060-90-97 09:05:00 Test Item Value Reference Range Interpretation Comments Segs-Bands # (test code = Segs-Bands #) 4.4 1.5-8.1 [facility] PasoWfcfbjbUXLRAGRXYE8525-25-93 09:05:00 Test Item Value Reference Range Interpretation Comments Eosinophils # (test code 0.3 See_Comment [A utomated message] The = Eosinophils #) system [facility] h generated this result tra nsmitted reference range : <=0.5. The reference r leatha was not used to int erpret this result as normal/abnormal . [facility] PasoLksenfcVZYXKEWYUT1857-11-14 09:05:00 Test Item Value Reference Range Interpretation Comments Monocytes # (test code 0.6 See_Comment [Aut omated message] The = Monocytes #) system which generated this result tra nsmitted reference range : <=0.8. The reference r leatha was not used to int erpret this result as normal/abnormal . [facility] PasoLdlexhzRKLXITWXSU4871-48-54 09:05:00 Test Item Value Reference Range Interpretation Comments Basophils (test code = 0.5 See_Comment [Aut omated message] The Basophils) system which ge nerated this result tra nsmitted reference range : <=1.0. The reference r leatha was not used to int erpret this result as normal/abnormal . [facility] PasoAtqdlljYUUPSYYCMC2863-14-65 09:05:00 Test Item Value Reference Range Interpretation Comments Eosinophils (test code = 4.9 See_Comment [A utomated message] The Eosinophils) system which ge nerated this result tra nsmitted reference range : <=4.0. The reference r leatha was not used to int erpret this result as normal/abnormal . [facility] PasoBruvmnjBAXKTTARVW1434-21-89 09:05:00 Test Item Value Reference Range Interpretation Comments Monocytes (test code = Monocytes) 9.1 2.0-12.0 [facility] PasoDmieobyHMZVFMCNHR8307-86-07 09:05:00 Test Item Value Reference Range Interpretation Comments Lymphocytes (test code = Lymphocytes) 18.9 20.0-40.0 [facility] PasoCwtajnsEXNAPSCWVE2405-63-03 09:05:00 Test Item Value Reference Range Interpretation Comments Segs (test code = Segs) 66.6 45.0-75.0 [facility] HospitalDtqsgjbCVLQZRNTLN2254-18-49 09:05:00 Test Item Value Reference Range Interpretation Comments MPV (test code = MPV) 9.4 7.4-10.4 [facility] HospitalEctzufaJZQSRFCWTC8476-92-12 09:05:00 Test Item Value Reference Range Interpretation Comments Platelet (test code = Platelet) 168 133-450 [facility] HospitalGeaesyxEPJGAOHXWR5601-03-19 09:05:00 Test Item Value Reference Range Interpretation Comments RDW (test code = RDW) 13.4 11.5-14.5 [facility] HospitalXiwlnnaLXGQHXYZPB5283-38-71 09:05:00 Test Item Value Reference Range Interpretation Comments MCHC (test code = MCHC) 32.8 32.0-36.0 [facility] HospitalEhwndzjDTFSWSIGYA0876-18-96 09:05:00 Test Item Value Reference Range Interpretation Comments MCH (test code = MCH) 30.7 pg 27.0-31.0 [facility] HospitalOqyiggfSOSZVLKWKI9024-21-85 09:05:00 Test Item Value Reference Range Interpretation Comments MCV (test code = MCV) 93.6 80.0-98.0 [facility] HospitalXvhaoqtRYZGEISGLH4331-71-32 09:05:00 Test Item Value Reference Range Interpretation Comments WBC (test code = WBC) 6.6 3.7-10.4 [facility] HospitalVkbjjqsOIPSBUGMFQ5673-33-41 09:05:00 Test Item Value Reference Range Interpretation Comments Hct (test code = Hct) 41.0 36.0-48.0 [facility] FallsWwvcefaPOLILGSTTL4157-42-09 09:05:00 Test Item Value Reference Range Interpretation Comments Hgb (test code = Hgb) 13.4 12.0-16.0 [facility] FallsXycivcuUMSYSPFESZ5010-31-98 09:05:00 Test Item Value Reference Range Interpretation Comments RBC (test code = RBC) 4.38 4.20-5.40 [facility] EOKPVVKVP6638-14-29 09:05:00 Test Item Value Reference Range Interpretation Comments Hgb A1C (test code = Hgb A1C) 10.3 [facility] FallsCHEM MKSOI6434-14-63 09:05:00 Test Item Value Reference Range Interpretation Comments Magnesium Lvl (test code = Magnesium 1.8 1.8-2.4 Lvl) [facility]2016-08-01 09:05:00 Test Item Value Reference Range Interpretation Comments Phosphorus (test code = Phosphorus) 2.4 2.5-4.5 [facility]2016-08-01 09:05:00 Test Item Value Reference Range Interpretation Comments CO2 (test code = CO2) 30 24-32 [facility]2016-08-01 09:05:00 Test Item Value Reference Range Interpretation Comments Glucose Lvl (test code = Glucose Lvl) 240 70-99 [facility]2016-08-01 09:05:00 Test Item Value Reference Range Interpretation Comments Creatinine Lvl (test code = Creatinine 0.80 0.50-1.40 Lvl) [facility]2016-08-01 09:05:00 Test Item Value Reference Range Interpretation Comments BUN (test code = BUN) 20 7-22 [facility]2016-08-01 09:05:00 Test Item Value Reference Range Interpretation Comments eGFR (test code = eGFR) 73 [facility]2016-08-01 09:05:00 Test Item Value Reference Range Interpretation Comments Albumin Lvl (test code = Albumin Lvl) 2.8 3.5-5.0 [facility]2016-08-01 09:05:00 Test Item Value Reference Range Interpretation Comments Calcium Lvl (test code = Calcium Lvl) 10.5 8.5-10.5 [facility]2016-08-01 09:05:00 Test Item Value Reference Range Interpretation Comments Potassium Lvl (test code = Potassium 4.3 3.5-5.1 Lvl) [facility]2016-08-01 09:05:00 Test Item Value Reference Range Interpretation Comments Chloride Lvl (test code = Chloride Lvl) 107 95-109 [facility]2016-08-01 09:05:00 Test Item Value Reference Range Interpretation Comments Sodium Lvl (test code = Sodium Lvl) 143 135-145 [facility]2016-08-01 09:05:00 Test Item Value Reference Range Interpretation Comments AGAP (test code = AGAP) 10.3 10.0-20.0 [facility] HospitalQrovixhWOZPIDWGUE7815-11-92 09:05:00 Test Item Value Reference Range Interpretation Comments Lymphocytes # (test code = Lymphocytes 1.3 1.0-5.5 #) [facility] PasoGjpwypkZKBMSAPBYB8620-97-94 09:05:00 Test Item Value Reference Range Interpretation Comments Segs-Bands # (test code = Segs-Bands #) 4.4 1.5-8.1 [facility] PasoNqitjqiBWTXVNWQIC9343-39-80 09:05:00 Test Item Value Reference Range Interpretation Comments Eosinophils # (test code 0.3 See_Comment [A utomated message] The = Eosinophils #) system wh h generated this result tra nsmitted reference range : <=0.5. The reference r leatha was not used to int erpret this result as normal/abnormal . [facility] PasoIhmpitfCLXNGLYQHT4696-67-78 09:05:00 Test Item Value Reference Range Interpretation Comments Monocytes # (test code 0.6 See_Comment [Aut omated message] The = Monocytes #) system which generated this result tra nsmitted reference range : <=0.8. The reference r leatha was not used to int erpret this result as normal/abnormal . [facility] PasoPmczdquFOXBIZCYUR4275-14-85 09:05:00 Test Item Value Reference Range Interpretation Comments Basophils (test code = 0.5 See_Comment [Aut omated message] The Basophils) system which ge nerated this result tra nsmitted reference range : <=1.0. The reference r leatha was not used to int erpret this result as normal/abnormal . [facility] PasoDpsekewYFTWOLTWHE2535-36-55 09:05:00 Test Item Value Reference Range Interpretation Comments Eosinophils (test code = 4.9 See_Comment [A utomated message] The Eosinophils) system which ge nerated this result tra nsmitted reference range : <=4.0. The reference r leatha was not used to int erpret this result as normal/abnormal . [facility] PasoIesewasUKYVOGYZUK6923-65-91 09:05:00 Test Item Value Reference Range Interpretation Comments Monocytes (test code = Monocytes) 9.1 2.0-12.0 [facility] PasoXlieiivHAJBPUMHXP0801-51-86 09:05:00 Test Item Value Reference Range Interpretation Comments Lymphocytes (test code = Lymphocytes) 18.9 20.0-40.0 [facility] PasoIhmezcjRHOKFLXPIZ8850-56-49 09:05:00 Test Item Value Reference Range Interpretation Comments Segs (test code = Segs) 66.6 45.0-75.0 [facility] FallsBbufvrsOLLYRTMQNG0771-94-70 09:05:00 Test Item Value Reference Range Interpretation Comments MPV (test code = MPV) 9.4 7.4-10.4 [facility] HospitalUnzgupsXFFTZWPWFI5320-92-64 09:05:00 Test Item Value Reference Range Interpretation Comments Platelet (test code = Platelet) 168 133-450 [facility] FallsOvhbsueJITZGLAQDG5547-20-87 09:05:00 Test Item Value Reference Range Interpretation Comments RDW (test code = RDW) 13.4 11.5-14.5 [facility] FallsKxypknpXTJGIEWUSD8629-39-05 09:05:00 Test Item Value Reference Range Interpretation Comments MCHC (test code = MCHC) 32.8 32.0-36.0 [facility] HospitalJsthzceNIINSIXAGT7741-12-18 09:05:00 Test Item Value Reference Range Interpretation Comments MCH (test code = MCH) 30.7 pg 27.0-31.0 [facility] FallsCtsusrlPUDHGOCKDU7609-39-79 09:05:00 Test Item Value Reference Range Interpretation Comments MCV (test code = MCV) 93.6 80.0-98.0 [facility] FallsMrpefspXPWQBCADOT8118-28-81 09:05:00 Test Item Value Reference Range Interpretation Comments WBC (test code = WBC) 6.6 3.7-10.4 [facility] HospitalYmqzqytCOYZYTCOJA0158-92-91 09:05:00 Test Item Value Reference Range Interpretation Comments Hct (test code = Hct) 41.0 36.0-48.0 [facility] FallsRvfpyzvMIVSKLHNOV9203-40-12 09:05:00 Test Item Value Reference Range Interpretation Comments Hgb (test code = Hgb) 13.4 12.0-16.0 [facility] FallsEzfgjafZGIVTCPMVI9915-10-67 09:05:00 Test Item Value Reference Range Interpretation Comments RBC (test code = RBC) 4.38 4.20-5.40 [facility] [facility] FallsSPECIAL [id number] 09:05:00 Test Item Value Reference Range Interpretation Comments Hgb A1C (test code = Hgb A1C) 10.3 [facility] FallsCHEM [id number] 09:05:00 Test Item Value Reference Range Interpretation Comments Magnesium Lvl (test code = Magnesium 1.8 1.8-2.4 Lvl) [facility]2016-08-01 09:05:00 Test Item Value Reference Range Interpretation Comments Phosphorus (test code = Phosphorus) 2.4 2.5-4.5 [facility]2016-08-01 09:05:00 Test Item Value Reference Range Interpretation Comments CO2 (test code = CO2) 30 [facility]2016-08-01 09:05:00 Test Item Value Reference Range Interpretation Comments Glucose Lvl (test code = Glucose Lvl) 240 [facility]2016-08-01 09:05:00 Test Item Value Reference Range Interpretation Comments Creatinine Lvl (test code = Creatinine 0.80 0.50-1.40 Lvl) [facility]2016-08-01 09:05:00 Test Item Value Reference Range Interpretation Comments BUN (test code = BUN) 01-06 [facility]2016-08-01 09:05:00 Test Item Value Reference Range Interpretation Comments eGFR (test code = eGFR) 73 [facility]2016-08-01 09:05:00 Test Item Value Reference Range Interpretation Comments Magnesium Lvl (test code = Magnesium 1.8 1.8-2.4 Lvl) [facility]2016-08-01 09:05:00 Test Item Value Reference Range Interpretation Comments Phosphorus (test code = Phosphorus) 2.4 2.5-4.5 [facility]2016-08-01 09:05:00 Test Item Value Reference Range Interpretation Comments CO2 (test code = CO2) 30 [facility]2016-08-01 09:05:00 Test Item Value Reference Range Interpretation Comments Glucose Lvl (test code = Glucose Lvl) 240 [facility]2016-08-01 09:05:00 Test Item Value Reference Range Interpretation Comments Creatinine Lvl (test code = Creatinine 0.80 0.50-1.40 Lvl) [facility]2016-08-01 09:05:00 Test Item Value Reference Range Interpretation Comments BUN (test code = BUN) 01-06 [facility]2016-08-01 09:05:00 Test Item Value Reference Range Interpretation Comments eGFR (test code = eGFR) 73 [place] 257186-08-01 09:05:00 Test Item Value Reference Range Interpretation Comments Albumin Lvl (test code = Albumin Lvl) 2.8 3.5-5.0 [facility]2016-08-01 09:05:00 Test Item Value Reference Range Interpretation Comments Albumin Lvl (test code = Albumin Lvl) 2.8 3.5-5.0 [facility]2016-08-01 09:05:00 Test Item Value Reference Range Interpretation Comments Calcium Lvl (test code = Calcium Lvl) 10.5 8.5-10.5 [facility]2016-08-01 09:05:00 Test Item Value Reference Range Interpretation Comments Potassium Lvl (test code = Potassium 4.3 3.5-5.1 Lvl) [facility]2016-08-01 09:05:00 Test Item Value Reference Range Interpretation Comments Chloride Lvl (test code = Chloride Lvl) 107 95-109 [facility]2016-08-01 09:05:00 Test Item Value Reference Range Interpretation Comments Sodium Lvl (test code = Sodium Lvl) 143 135-145 [facility]2016-08-01 09:05:00 Test Item Value Reference Range Interpretation Comments AGAP (test code = AGAP) 10.3 10.0-20.0 [facility] PasoZatzzabJITNQHEZPB2113-59-49 09:05:00 Test Item Value Reference Range Interpretation Comments Lymphocytes # (test code = Lymphocytes 1.3 1.0-5.5 #) [facility] PasoDwefwytJRIWQRMZHO7340-51-18 09:05:00 Test Item Value Reference Range Interpretation Comments Segs-Bands # (test code = Segs-Bands #) 4.4 1.5-8.1 [facility] PasoUhzvgdaMOLAGIXMSJ1178-52-74 09:05:00 Test Item Value Reference Range Interpretation Comments Eosinophils # (test code 0.3 See_Comment [A utomated message] The = Eosinophils #) system whic h generated this result tra nsmitted reference range : <=0.5. The reference r leatha was not used to int erpret this result as normal/abnormal . [facility] PasoGkswfyfOUMTWDBBCO4400-43-81 09:05:00 Test Item Value Reference Range Interpretation Comments Monocytes # (test code 0.6 See_Comment [Aut omated message] The = Monocytes #) system which generated this result tra nsmitted reference range : <=0.8. The reference r leatha was not used to int erpret this result as normal/abnormal . [facility]2016-08-01 09:05:00 Test Item Value Reference Range Interpretation Comments Calcium Lvl (test code = Calcium Lvl) 10.5 8.5-10.5 [facility] PasoKylwkmxOCVMUIVEHN3559-43-90 09:05:00 Test Item Value Reference Range Interpretation Comments Basophils (test code = 0.5 See_Comment [Aut omated message] The Basophils) system which ge nerated this result tra nsmitted reference range : <=1.0. The reference r leatha was not used to int erpret this result as normal/abnormal . [facility] PasoTsnhjrmBGUWEKRAXU9096-17-02 09:05:00 Test Item Value Reference Range Interpretation Comments Eosinophils (test code = 4.9 See_Comment [A utomated message] The Eosinophils) system which ge nerated this result tra nsmitted reference range : <=4.0. The reference r leatha was not used to int erpret this result as normal/abnormal . [facility] PasoHxctvpcTDOICENBUW3688-97-12 09:05:00 Test Item Value Reference Range Interpretation Comments Monocytes (test code = Monocytes) 9.1 2.0-12.0 [facility] PasoHtjwxqbVUFMMNZAMO3785-94-54 09:05:00 Test Item Value Reference Range Interpretation Comments Lymphocytes (test code = Lymphocytes) 18.9 20.0-40.0 [facility] PasoBatrbzsZAXUZCRCQT9161-24-29 09:05:00 Test Item Value Reference Range Interpretation Comments Segs (test code = Segs) 66.6 45.0-75.0 [facility] PasoMqxcxhcYIIXWDGEEP8385-62-51 09:05:00 Test Item Value Reference Range Interpretation Comments MPV (test code = MPV) 9.4 7.4-10.4 [facility] PasoLkliadwCVCZUAZMEA1219-70-67 09:05:00 Test Item Value Reference Range Interpretation Comments Platelet (test code = Platelet) 168 133-450 [facility] PasoZimumydSDWBMIZBCA8933-54-11 09:05:00 Test Item Value Reference Range Interpretation Comments RDW (test code = RDW) 13.4 11.5-14.5 [facility] PasoEkhzmmhWLTZIPXNOK8408-60-93 09:05:00 Test Item Value Reference Range Interpretation Comments MCHC (test code = MCHC) 32.8 32.0-36.0 [facility] PasoZzjvlywDSEKOITEXZ0793-37-24 09:05:00 Test Item Value Reference Range Interpretation Comments MCH (test code = MCH) 30.7 pg 27.0-31.0 [facility] [id number] 09:05:00 Test Item Value Reference Range Interpretation Comments Potassium Lvl (test code = Potassium 4.3 3.5-5.1 Lvl) [facility] PasoHqptrdlBTHBZQIEYO8206-94-27 09:05:00 Test Item Value Reference Range Interpretation Comments MCV (test code = MCV) 93.6 80.0-98.0 [facility] PasoCudmmmtUFDBJGNFTH8257-67-29 09:05:00 Test Item Value Reference Range Interpretation Comments WBC (test code = WBC) 6.6 3.7-10.4 [facility] PasoYuuwgzhWJOQOBMFHC1932-96-39 09:05:00 Test Item Value Reference Range Interpretation Comments Hct (test code = Hct) 41.0 36.0-48.0 [facility] PasoQujdzryHHLFISIYFB0721-01-46 09:05:00 Test Item Value Reference Range Interpretation Comments Hgb (test code = Hgb) 13.4 12.0-16.0 [facility] PasoOlyrzxgVKZBNJRJAZ5686-87-75 09:05:00 Test Item Value Reference Range Interpretation Comments RBC (test code = RBC) 4.38 4.20-5.40 [facility] QFZMCSNFZ6074-00-14 09:05:00 Test Item Value Reference Range Interpretation Comments Hgb A1C (test code = Hgb A1C) 10.3 [facility] [id number] 09:05:00 Test Item Value Reference Range Interpretation Comments Chloride Lvl (test code = Chloride Lvl) 107 95-109 [facility] GBPXJ9000-92-73 09:05:00 Test Item Value Reference Range Interpretation Comments Sodium Lvl (test code = Sodium Lvl) 143 135-145 [facility]2016-08-01 09:05:00 Test Item Value Reference Range Interpretation Comments AGAP (test code = AGAP) 10.3 10.0-20.0 [facility] PasoIxmkeuaJQFNMUDJOD5912-93-15 09:05:00 Test Item Value Reference Range Interpretation Comments Lymphocytes # (test code = Lymphocytes 1.3 1.0-5.5 #) [facility] PasoCtwvmgoCIYXRGDVRK3834-39-91 09:05:00 Test Item Value Reference Range Interpretation Comments Segs-Bands # (test code = Segs-Bands #) 4.4 1.5-8.1 [facility] PasoEgjbdqqZXYPXBPJXM9026-08-50 09:05:00 Test Item Value Reference Range Interpretation Comments Eosinophils # (test code 0.3 See_Comment [A utomated message] The = Eosinophils #) system whic h generated this result tra nsmitted reference range : <=0.5. The reference r leatha was not used to int erpret this result as normal/abnormal . [facility] PasoIqglhxqEPYUJHJMLM8955-61-57 09:05:00 Test Item Value Reference Range Interpretation Comments Monocytes # (test code 0.6 See_Comment [Aut omated message] The = Monocytes #) system which generated this result tra nsmitted reference range : <=0.8. The reference r leatha was not used to int erpret this result as normal/abnormal . [facility] PasoBhmsqcfVVRHMTMEVX1268-34-68 09:05:00 Test Item Value Reference Range Interpretation Comments Basophils (test code = 0.5 See_Comment [Aut omated message] The Basophils) system which ge nerated this result tra nsmitted reference range : <=1.0. The reference r leatha was not used to int erpret this result as normal/abnormal . [facility] PasoCkzcpfpMZFOXPRLVG2759-74-44 09:05:00 Test Item Value Reference Range Interpretation Comments Eosinophils (test code = 4.9 See_Comment [A utomated message] The Eosinophils) system which ge nerated this result tra nsmitted reference range : <=4.0. The reference r leatha was not used to int erpret this result as normal/abnormal . [facility] PasoPgtybkxASNZVKTBHR2109-64-96 09:05:00 Test Item Value Reference Range Interpretation Comments Monocytes (test code = Monocytes) 9.1 2.0-12.0 [facility] PasoDytfjfwLMMFHZGPQT9509-17-28 09:05:00 Test Item Value Reference Range Interpretation Comments Lymphocytes (test code = Lymphocytes) 18.9 20.0-40.0 [facility] PasoScymaydPNZLDNLFAV6404-89-09 09:05:00 Test Item Value Reference Range Interpretation Comments Segs (test code = Segs) 66.6 45.0-75.0 [facility] FallsBzqnqpjCFHIFYKHDS3122-35-71 09:05:00 Test Item Value Reference Range Interpretation Comments MPV (test code = MPV) 9.4 7.4-10.4 [facility] FallsLhaawbpYNYNPWASJS9421-95-46 09:05:00 Test Item Value Reference Range Interpretation Comments Platelet (test code = Platelet) 168 133-450 [facility]PrknzcxBRCSALCCFQ5841-90-53 09:05:00 Test Item Value Reference Range Interpretation Comments RDW (test code = RDW) 13.4 11.5-14.5 [facility] FallsUqjexfeXWBYJSLKVR0976-66-49 09:05:00 Test Item Value Reference Range Interpretation Comments MCHC (test code = MCHC) 32.8 32.0-36.0 [facility] HospitalJxkvllhUJVUSPZHFS3292-68-52 09:05:00 Test Item Value Reference Range Interpretation Comments MCH (test code = MCH) 30.7 pg 27.0-31.0 [facility] HospitalChlruohGYRRYVORJN9366-88-39 09:05:00 Test Item Value Reference Range Interpretation Comments MCV (test code = MCV) 93.6 80.0-98.0 [facility] FallsGmkqmaaOEQCXBYTLG8726-94-94 09:05:00 Test Item Value Reference Range Interpretation Comments WBC (test code = WBC) 6.6 3.7-10.4 [facility] FallsPbiqdwgMULOIWGRHE7818-56-77 09:05:00 Test Item Value Reference Range Interpretation Comments Hct (test code = Hct) 41.0 36.0-48.0 [facility] HospitalSwjfnieWSGVYXPSPW6448-01-23 09:05:00 Test Item Value Reference Range Interpretation Comments Hgb (test code = Hgb) 13.4 12.0-16.0 [facility] FallsYqguvqdFOWGNJVTTJ9083-82-62 09:05:00 Test Item Value Reference Range Interpretation Comments RBC (test code = RBC) 4.38 4.20-5.40 [facility] FallsSPECIAL MPYTRGFWJ0848-99-20 09:05:00 Test Item Value Reference Range Interpretation Comments Hgb A1C (test code = Hgb A1C) 10.3 [facility] FallsCHEM OKYFW7296-12-23 09:05:00 Test Item Value Reference Range Interpretation Comments Magnesium Lvl (test code = Magnesium 1.8 1.8-2.4 Lvl) [facility]2016-08-01 09:05:00 Test Item Value Reference Range Interpretation Comments Phosphorus (test code = Phosphorus) 2.4 2.5-4.5 [facility]2016-08-01 09:05:00 Test Item Value Reference Range Interpretation Comments CO2 (test code = CO2) 30 24-32 [facility]2016-08-01 09:05:00 Test Item Value Reference Range Interpretation Comments Glucose Lvl (test code = Glucose Lvl) 240 70-99 [facility]2016-08-01 09:05:00 Test Item Value Reference Range Interpretation Comments Creatinine Lvl (test code = Creatinine 0.80 0.50-1.40 Lvl) [facility]2016-08-01 09:05:00 Test Item Value Reference Range Interpretation Comments BUN (test code = BUN) 20 7-22 [facility]2016-08-01 09:05:00 Test Item Value Reference Range Interpretation Comments eGFR (test code = eGFR) 73 [facility]2016-08-01 09:05:00 Test Item Value Reference Range Interpretation Comments Albumin Lvl (test code = Albumin Lvl) 2.8 3.5-5.0 [facility]2016-08-01 09:05:00 Test Item Value Reference Range Interpretation Comments Calcium Lvl (test code = Calcium Lvl) 10.5 8.5-10.5 [facility]2016-08-01 09:05:00 Test Item Value Reference Range Interpretation Comments Potassium Lvl (test code = Potassium 4.3 3.5-5.1 Lvl) [facility]2016-08-01 09:05:00 Test Item Value Reference Range Interpretation Comments Chloride Lvl (test code = Chloride Lvl) 107 95-109 [facility]2016-08-01 09:05:00 Test Item Value Reference Range Interpretation Comments Sodium Lvl (test code = Sodium Lvl) 143 135-145 [facility]2016-08-01 09:05:00 Test Item Value Reference Range Interpretation Comments AGAP (test code = AGAP) 10.3 10.0-20.0 [facility] HospitalWkiekozUGESIXDLIR6878-38-36 09:05:00 Test Item Value Reference Range Interpretation Comments Lymphocytes # (test code = Lymphocytes 1.3 1.0-5.5 #) [facility] PasoRyfolmaEBMARYEJBR5004-61-12 09:05:00 Test Item Value Reference Range Interpretation Comments Segs-Bands # (test code = Segs-Bands #) 4.4 1.5-8.1 [facility] PasoCqkcboxKZFJUNWZXC9254-91-36 09:05:00 Test Item Value Reference Range Interpretation Comments Eosinophils # (test code 0.3 See_Comment [A utomated message] The = Eosinophils #) system whic h generated this result tra nsmitted reference range : <=0.5. The reference r leatha was not used to int erpret this result as normal/abnormal . [facility] PasoFcglfheUGVVYJMOLK8549-60-70 09:05:00 Test Item Value Reference Range Interpretation Comments Monocytes # (test code 0.6 See_Comment [Aut omated message] The = Monocytes #) system which generated this result tra nsmitted reference range : <=0.8. The reference r leatha was not used to int erpret this result as normal/abnormal . [facility] PasoNzfsehvKWNLDNNTXA8473-02-78 09:05:00 Test Item Value Reference Range Interpretation Comments Basophils (test code = 0.5 See_Comment [Aut omated message] The Basophils) system which ge nerated this result tra nsmitted reference range : <=1.0. The reference r leatha was not used to int erpret this result as normal/abnormal . [facility] PasoTzncyneMYXIJYJVZM2910-13-54 09:05:00 Test Item Value Reference Range Interpretation Comments Eosinophils (test code = 4.9 See_Comment [A utomated message] The Eosinophils) system which ge nerated this result tra nsmitted reference range : <=4.0. The reference r leatha was not used to int erpret this result as normal/abnormal . [facility] PasoSscsstvJCSRGRVHBM9181-64-61 09:05:00 Test Item Value Reference Range Interpretation Comments Monocytes (test code = Monocytes) 9.1 2.0-12.0 [facility] PasoVhmwtevKLCFUBEOAO8004-82-39 09:05:00 Test Item Value Reference Range Interpretation Comments Lymphocytes (test code = Lymphocytes) 18.9 20.0-40.0 [facility] PasoCeubguhANLOXNBXJI6713-67-21 09:05:00 Test Item Value Reference Range Interpretation Comments Segs (test code = Segs) 66.6 45.0-75.0 [facility] HospitalEgbwkaxSZQPHHKFPK0701-83-80 09:05:00 Test Item Value Reference Range Interpretation Comments MPV (test code = MPV) 9.4 7.4-10.4 [facility] HospitalPhfnjiySOVCACDBGF0932-38-31 09:05:00 Test Item Value Reference Range Interpretation Comments Platelet (test code = Platelet) 168 133-450 [facility] HospitalAznshraDMYAIARCDW4052-34-73 09:05:00 Test Item Value Reference Range Interpretation Comments RDW (test code = RDW) 13.4 11.5-14.5 [facility] HospitalEcntlpuHJMDLZJCXB0175-62-52 09:05:00 Test Item Value Reference Range Interpretation Comments MCHC (test code = MCHC) 32.8 32.0-36.0 [facility] HospitalZfhjfvyZRJEJYHBQK9969-43-18 09:05:00 Test Item Value Reference Range Interpretation Comments MCH (test code = MCH) 30.7 pg 27.0-31.0 [facility] HospitalNmaxvbnJYKMORKYJQ9400-36-75 09:05:00 Test Item Value Reference Range Interpretation Comments MCV (test code = MCV) 93.6 80.0-98.0 [facility] HospitalRdiyqfiUDXQPKCXVI9844-43-22 09:05:00 Test Item Value Reference Range Interpretation Comments WBC (test code = WBC) 6.6 3.7-10.4 [facility] HospitalNckedvoJQVABSWFGR6444-32-07 09:05:00 Test Item Value Reference Range Interpretation Comments Hct (test code = Hct) 41.0 36.0-48.0 [facility] HospitalZzkhhheEARSBIJACR4038-61-81 09:05:00 Test Item Value Reference Range Interpretation Comments Hgb (test code = Hgb) 13.4 12.0-16.0 [facility] HospitalPnijtrvFRDAEBNDTS1834-18-38 09:05:00 Test Item Value Reference Range Interpretation Comments RBC (test code = RBC) 4.38 4.20-5.40 [facility] PJNNRNGTN9039-52-66 09:05:00 Test Item Value Reference Range Interpretation Comments Hgb A1C (test code = Hgb A1C) 10.3 [facility] FallsCHEM QBGCX0740-15-12 09:05:00 Test Item Value Reference Range Interpretation Comments Magnesium Lvl (test code = Magnesium 1.8 1.8-2.4 Lvl) [facility]2016-08-01 09:05:00 Test Item Value Reference Range Interpretation Comments Phosphorus (test code = Phosphorus) 2.4 2.5-4.5 [facility]2016-08-01 09:05:00 Test Item Value Reference Range Interpretation Comments CO2 (test code = CO2) 30 24-32 [facility]2016-08-01 09:05:00 Test Item Value Reference Range Interpretation Comments Glucose Lvl (test code = Glucose Lvl) 240 70-99 [facility]2016-08-01 09:05:00 Test Item Value Reference Range Interpretation Comments Creatinine Lvl (test code = Creatinine 0.80 0.50-1.40 Lvl) [facility]2016-08-01 09:05:00 Test Item Value Reference Range Interpretation Comments BUN (test code = BUN) 20 7-22 [facility]2016-08-01 09:05:00 Test Item Value Reference Range Interpretation Comments eGFR (test code = eGFR) 73 [facility]2016-08-01 09:05:00 Test Item Value Reference Range Interpretation Comments Albumin Lvl (test code = Albumin Lvl) 2.8 3.5-5.0 [facility]2016-08-01 09:05:00 Test Item Value Reference Range Interpretation Comments Calcium Lvl (test code = Calcium Lvl) 10.5 8.5-10.5 [facility]2016-08-01 09:05:00 Test Item Value Reference Range Interpretation Comments Potassium Lvl (test code = Potassium 4.3 3.5-5.1 Lvl) [facility]2016-08-01 09:05:00 Test Item Value Reference Range Interpretation Comments Chloride Lvl (test code = Chloride Lvl) 107 95-109 [facility]2016-08-01 09:05:00 Test Item Value Reference Range Interpretation Comments Sodium Lvl (test code = Sodium Lvl) 143 135-145 [facility]2016-08-01 09:05:00 Test Item Value Reference Range Interpretation Comments AGAP (test code = AGAP) 10.3 10.0-20.0 [facility] HospitalTsifpybKSRXGJOJRS6257-29-82 09:05:00 Test Item Value Reference Range Interpretation Comments Lymphocytes # (test code = Lymphocytes 1.3 1.0-5.5 #) [facility] PasoDsdwfotXNOKXKDLBM6491-99-18 09:05:00 Test Item Value Reference Range Interpretation Comments Segs-Bands # (test code = Segs-Bands #) 4.4 1.5-8.1 [facility] PasoSobtfvdSHVSRBBHIK7414-26-96 09:05:00 Test Item Value Reference Range Interpretation Comments Eosinophils # (test code 0.3 See_Comment [A utomated message] The = Eosinophils #) system whic h generated this result tra nsmitted reference range : <=0.5. The reference r leatha was not used to int erpret this result as normal/abnormal . [facility] PasoFskouhuUMDLGBPFAE7570-52-41 09:05:00 Test Item Value Reference Range Interpretation Comments Monocytes # (test code 0.6 See_Comment [Aut omated message] The = Monocytes #) system which generated this result tra nsmitted reference range : <=0.8. The reference r leatha was not used to int erpret this result as normal/abnormal . [facility] PasoZtlwjzvGQFRBFFYOZ3937-91-20 09:05:00 Test Item Value Reference Range Interpretation Comments Basophils (test code = 0.5 See_Comment [Aut omated message] The Basophils) system which ge nerated this result tra nsmitted reference range : <=1.0. The reference r leatha was not used to int erpret this result as normal/abnormal . [facility] PasoQmjohpxYXUVDGUHJC5124-50-18 09:05:00 Test Item Value Reference Range Interpretation Comments Eosinophils (test code = 4.9 See_Comment [A utomated message] The Eosinophils) system which ge nerated this result tra nsmitted reference range : <=4.0. The reference r leatha was not used to int erpret this result as normal/abnormal . [facility] PasoFsczofvLYCZQTRARP1854-09-60 09:05:00 Test Item Value Reference Range Interpretation Comments Monocytes (test code = Monocytes) 9.1 2.0-12.0 [facility] PasoIccknzzIXMWGISYPQ7797-16-76 09:05:00 Test Item Value Reference Range Interpretation Comments Lymphocytes (test code = Lymphocytes) 18.9 20.0-40.0 [facility] PasoTendahaNCLFPZFIEV2357-91-98 09:05:00 Test Item Value Reference Range Interpretation Comments Segs (test code = Segs) 66.6 45.0-75.0 [facility] HospitalWnxzrzeXRCBPFUOAK3226-44-76 09:05:00 Test Item Value Reference Range Interpretation Comments MPV (test code = MPV) 9.4 7.4-10.4 [facility] HospitalGnlktnrMDGGCVBQJI4955-25-96 09:05:00 Test Item Value Reference Range Interpretation Comments Platelet (test code = Platelet) 168 133-450 [facility] HospitalTqmwlsoYHFZMIDNYY8161-78-82 09:05:00 Test Item Value Reference Range Interpretation Comments RDW (test code = RDW) 13.4 11.5-14.5 [facility] HospitalTxubsrhUTLGODHOYY8755-79-37 09:05:00 Test Item Value Reference Range Interpretation Comments MCHC (test code = MCHC) 32.8 32.0-36.0 [facility] HospitalLneulpaFYRIAWAQZM0102-35-73 09:05:00 Test Item Value Reference Range Interpretation Comments MCH (test code = MCH) 30.7 pg 27.0-31.0 [facility] HospitalLrmfgclSPGJHQFQRY1821-18-74 09:05:00 Test Item Value Reference Range Interpretation Comments MCV (test code = MCV) 93.6 80.0-98.0 [facility]CbtlchqAOVDWUONAC4676-02-49 09:05:00 Test Item Value Reference Range Interpretation Comments WBC (test code = WBC) 6.6 3.7-10.4 [facility] HospitalUtnjbirWRJTQJZLEP4228-70-98 09:05:00 Test Item Value Reference Range Interpretation Comments Hct (test code = Hct) 41.0 36.0-48.0 [facility] HospitalWtlthzwBMXOHVBFAG1126-90-16 09:05:00 Test Item Value Reference Range Interpretation Comments Hgb (test code = Hgb) 13.4 12.0-16.0 [facility] HospitalWdogzdlGJAOWLSQZN9879-60-41 09:05:00 Test Item Value Reference Range Interpretation Comments RBC (test code = RBC) 4.38 4.20-5.40 [facility] XNNAXUZXM1895-68-36 09:05:00 Test Item Value Reference Range Interpretation Comments Hgb A1C (test code = Hgb A1C) 10.3 [facility] [id number] 09:05:00 Test Item Value Reference Range Interpretation Comments Magnesium Lvl (test code = Magnesium 1.8 1.8-2.4 Lvl) [facility]2016-08-01 09:05:00 Test Item Value Reference Range Interpretation Comments Phosphorus (test code = Phosphorus) 2.4 2.5-4.5 [facility]2016-08-01 09:05:00 Test Item Value Reference Range Interpretation Comments CO2 (test code = CO2) 30 24-32 [facility]2016-08-01 09:05:00 Test Item Value Reference Range Interpretation Comments Glucose Lvl (test code = Glucose Lvl) 240 70-99 [facility]2016-08-01 09:05:00 Test Item Value Reference Range Interpretation Comments Creatinine Lvl (test code = Creatinine 0.80 0.50-1.40 Lvl) [facility]2016-08-01 09:05:00 Test Item Value Reference Range Interpretation Comments BUN (test code = BUN) 20 7-22 [facility]2016-08-01 09:05:00 Test Item Value Reference Range Interpretation Comments eGFR (test code = eGFR) 73 [facility]2016-08-01 09:05:00 Test Item Value Reference Range Interpretation Comments Albumin Lvl (test code = Albumin Lvl) 2.8 3.5-5.0 [facility]2016-08-01 09:05:00 Test Item Value Reference Range Interpretation Comments Calcium Lvl (test code = Calcium Lvl) 10.5 8.5-10.5 [facility]2016-08-01 09:05:00 Test Item Value Reference Range Interpretation Comments Potassium Lvl (test code = Potassium 4.3 3.5-5.1 Lvl) [facility]2016-08-01 09:05:00 Test Item Value Reference Range Interpretation Comments Chloride Lvl (test code = Chloride Lvl) 107 95-109 [facility]2016-08-01 09:05:00 Test Item Value Reference Range Interpretation Comments Sodium Lvl (test code = Sodium Lvl) 143 135-145 [facility]2016-08-01 09:05:00 Test Item Value Reference Range Interpretation Comments AGAP (test code = AGAP) 10.3 10.0-20.0 [facility]HzusyqjVNRZVUSOXQ7904-66-36 09:05:00 Test Item Value Reference Range Interpretation Comments Lymphocytes # (test code = Lymphocytes 1.3 1.0-5.5 #) [facility] PasoKghstedOGRHEGDCHQ3042-30-37 09:05:00 Test Item Value Reference Range Interpretation Comments Segs-Bands # (test code = Segs-Bands #) 4.4 1.5-8.1 [facility] PasoWprstshCLFRSWEBHM7183-02-46 09:05:00 Test Item Value Reference Range Interpretation Comments Eosinophils # (test code = Eosinophils 0.3 <=0.5 #) [facility] PasoNokawkxPZVJEYHSRJ8726-12-41 09:05:00 Test Item Value Reference Range Interpretation Comments Monocytes # (test code = Monocytes #) 0.6 <=0.8 [facility] PasoFvyfutiDAEIWMHGDU0375-56-59 09:05:00 Test Item Value Reference Range Interpretation Comments Basophils (test code = Basophils) 0.5 <=1.0 [facility] PasoIzbwgttCVGGFHERLV0548-52-93 09:05:00 Test Item Value Reference Range Interpretation Comments Eosinophils (test code = Eosinophils) 4.9 <=4.0 [facility] PasoEruvzyaHALXNXENDD9741-64-22 09:05:00 Test Item Value Reference Range Interpretation Comments Monocytes (test code = Monocytes) 9.1 2.0-12.0 [facility] PasoAsmxtkfGCKQKGXWYQ9185-87-37 09:05:00 Test Item Value Reference Range Interpretation Comments Lymphocytes (test code = Lymphocytes) 18.9 20.0-40.0 [facility] PasoKxbcbndMTQXUUMKDD7909-80-29 09:05:00 Test Item Value Reference Range Interpretation Comments Segs (test code = Segs) 66.6 45.0-75.0 [facility] PasoCqqpiefZSFHQSJRWZ3336-82-05 09:05:00 Test Item Value Reference Range Interpretation Comments MPV (test code = MPV) 9.4 7.4-10.4 [facility] PasoOhulfvjOXSLXRGATF6052-95-91 09:05:00 Test Item Value Reference Range Interpretation Comments Platelet (test code = Platelet) 168 133-450 [facility] PasoXtgumonECQFMATWWZ7335-31-63 09:05:00 Test Item Value Reference Range Interpretation Comments RDW (test code = RDW) 13.4 11.5-14.5 [facility] PasoSpqbvlaPOYUXJZJFT2414-44-10 09:05:00 Test Item Value Reference Range Interpretation Comments MCHC (test code = MCHC) 32.8 32.0-36.0 [facility] PasoEbwagecEILTQVCRHD7268-77-00 09:05:00 Test Item Value Reference Range Interpretation Comments MCH (test code = MCH) 30.7 pg 27.0-31.0 [facility]KcgygmdUXXGZVGZJC7399-67-96 09:05:00 Test Item Value Reference Range Interpretation Comments MCV (test code = MCV) 93.6 80.0-98.0 [facility] HospitalGbpeitfWOOFVNNWNU9807-65-73 09:05:00 Test Item Value Reference Range Interpretation Comments WBC (test code = WBC) 6.6 3.7-10.4 [facility] HospitalUiheptgXZWXEHUKWP2896-61-23 09:05:00 Test Item Value Reference Range Interpretation Comments Hct (test code = Hct) 41.0 36.0-48.0 [facility] HospitalJckmkbcOJRGFJAMFZ3694-59-81 09:05:00 Test Item Value Reference Range Interpretation Comments Hgb (test code = Hgb) 13.4 12.0-16.0 [facility] PasoZtpxybtTCAZVAQPOD0810-81-26 09:05:00 Test Item Value Reference Range Interpretation Comments RBC (test code = RBC) 4.38 4.20-5.40 [facility] TNSKNGOLM9597-86-23 09:05:00 Test Item Value Reference Range Interpretation Comments Hgb A1C (test code = Hgb A1C) 10.3 [facility] [id number] 09:05:00 Test Item Value Reference Range Interpretation Comments Magnesium Lvl (test code = Magnesium 1.8 1.8-2.4 Lvl) [facility] [id number] 09:05:00 Test Item Value Reference Range Interpretation Comments Phosphorus (test code = Phosphorus) 2.4 2.5-4.5 [facility] [id number] 09:05:00 Test Item Value Reference Range Interpretation Comments CO2 (test code = CO2) 30 24-32 [facility] [id number] 09:05:00 Test Item Value Reference Range Interpretation Comments Glucose Lvl (test code = Glucose Lvl) 240 70-99 [facility] [id number] 09:05:00 Test Item Value Reference Range Interpretation Comments Creatinine Lvl (test code = Creatinine 0.80 0.50-1.40 Lvl) [facility] [id number] 09:05:00 Test Item Value Reference Range Interpretation Comments BUN (test code = BUN) 20 7-22 [facility]2016-08-01 09:05:00 Test Item Value Reference Range Interpretation Comments eGFR (test code = eGFR) 73 [facility]2016-08-01 09:05:00 Test Item Value Reference Range Interpretation Comments Albumin Lvl (test code = Albumin Lvl) 2.8 3.5-5.0 [facility]2016-08-01 09:05:00 Test Item Value Reference Range Interpretation Comments Calcium Lvl (test code = Calcium Lvl) 10.5 8.5-10.5 [facility]2016-08-01 09:05:00 Test Item Value Reference Range Interpretation Comments Potassium Lvl (test code = Potassium 4.3 3.5-5.1 Lvl) [facility]2016-08-01 09:05:00 Test Item Value Reference Range Interpretation Comments Chloride Lvl (test code = Chloride Lvl) 107 95-109 [facility]2016-08-01 09:05:00 Test Item Value Reference Range Interpretation Comments Sodium Lvl (test code = Sodium Lvl) 143 135-145 [facility]2016-08-01 09:05:00 Test Item Value Reference Range Interpretation Comments AGAP (test code = AGAP) 10.3 10.0-20.0 [facility] PasoAckuejxLPJFFFYTOP0070-97-06 09:05:00 Test Item Value Reference Range Interpretation Comments Lymphocytes # (test code = Lymphocytes 1.3 1.0-5.5 #) [facility] PasoWbjvyyxFPVDNEFWTB9389-95-03 09:05:00 Test Item Value Reference Range Interpretation Comments Segs-Bands # (test code = Segs-Bands #) 4.4 1.5-8.1 [facility] PasoWmeoubsPZHTBZQQLF3574-87-82 09:05:00 Test Item Value Reference Range Interpretation Comments Eosinophils # (test code = Eosinophils 0.3 <=0.5 #) [facility] PasoWuolfvpPQZUCQRQAS4241-73-27 09:05:00 Test Item Value Reference Range Interpretation Comments Monocytes # (test code = Monocytes #) 0.6 <=0.8 [facility] PasoIsbtguaWZHPEBCULF3599-09-19 09:05:00 Test Item Value Reference Range Interpretation Comments Basophils (test code = Basophils) 0.5 <=1.0 [facility] PasoRzusvagHPTKBNPQBL5540-69-62 09:05:00 Test Item Value Reference Range Interpretation Comments Eosinophils (test code = Eosinophils) 4.9 <=4.0 [facility] PasoJizzxwtTOUTURNZQA9290-30-80 09:05:00 Test Item Value Reference Range Interpretation Comments Monocytes (test code = Monocytes) 9.1 2.0-12.0 [facility] PasoImsskitZAPMLXKSRJ4338-28-31 09:05:00 Test Item Value Reference Range Interpretation Comments Lymphocytes (test code = Lymphocytes) 18.9 20.0-40.0 [facility] PasoFfrhmswPIFQWBKCKG8418-38-77 09:05:00 Test Item Value Reference Range Interpretation Comments Segs (test code = Segs) 66.6 45.0-75.0 [facility] PasoYyktpheIWNRFHLKSL5879-71-18 09:05:00 Test Item Value Reference Range Interpretation Comments MPV (test code = MPV) 9.4 7.4-10.4 [facility] PasoGucwfhwKJALYODFHH5119-03-61 09:05:00 Test Item Value Reference Range Interpretation Comments Platelet (test code = Platelet) 168 133-450 [facility] PasoMumicorCRTFGDDNKI6977-86-64 09:05:00 Test Item Value Reference Range Interpretation Comments RDW (test code = RDW) 13.4 11.5-14.5 [facility] PasoNgabrfjLHNFOHWCBO6898-92-36 09:05:00 Test Item Value Reference Range Interpretation Comments MCHC (test code = MCHC) 32.8 32.0-36.0 [facility] PasoCsivirbTBLAOHBLRX3345-16-61 09:05:00 Test Item Value Reference Range Interpretation Comments MCH (test code = MCH) 30.7 pg 27.0-31.0 [facility] PasoElukretAPWYLQDJIK3330-28-22 09:05:00 Test Item Value Reference Range Interpretation Comments MCV (test code = MCV) 93.6 80.0-98.0 [facility] PasoNqxwvnzKQPTPWVBTG5684-68-01 09:05:00 Test Item Value Reference Range Interpretation Comments WBC (test code = WBC) 6.6 3.7-10.4 [facility] PasoAlqhtaeBCHIIALITB4613-02-57 09:05:00 Test Item Value Reference Range Interpretation Comments Hct (test code = Hct) 41.0 36.0-48.0 [facility] PasoFklqprgMDCCXRSODT3021-65-59 09:05:00 Test Item Value Reference Range Interpretation Comments Hgb (test code = Hgb) 13.4 12.0-16.0 [facility] FallsGbdbfpwZIHGKWJTZN7006-78-22 09:05:00 Test Item Value Reference Range Interpretation Comments RBC (test code = RBC) 4.38 4.20-5.40 [facility] LTRFBASTU9972-34-51 09:05:00 Test Item Value Reference Range Interpretation Comments Hgb A1C (test code = Hgb A1C) 10.3 [facility] [id number] 09:05:00 Test Item Value Reference Range Interpretation Comments Magnesium Lvl (test code = Magnesium 1.8 1.8-2.4 Lvl) [facility]2016-08-01 09:05:00 Test Item Value Reference Range Interpretation Comments Phosphorus (test code = Phosphorus) 2.4 2.5-4.5 [facility]2016-08-01 09:05:00 Test Item Value Reference Range Interpretation Comments CO2 (test code = CO2) 30 24-32 [facility]2016-08-01 09:05:00 Test Item Value Reference Range Interpretation Comments Glucose Lvl (test code = Glucose Lvl) 240 70-99 [facility]2016-08-01 09:05:00 Test Item Value Reference Range Interpretation Comments Creatinine Lvl (test code = Creatinine 0.80 0.50-1.40 Lvl) [facility]2016-08-01 09:05:00 Test Item Value Reference Range Interpretation Comments BUN (test code = BUN) 20 7-22 [facility]2016-08-01 09:05:00 Test Item Value Reference Range Interpretation Comments eGFR (test code = eGFR) 73 [facility]2016-08-01 09:05:00 Test Item Value Reference Range Interpretation Comments Albumin Lvl (test code = Albumin Lvl) 2.8 3.5-5.0 [facility]2016-08-01 09:05:00 Test Item Value Reference Range Interpretation Comments Calcium Lvl (test code = Calcium Lvl) 10.5 8.5-10.5 [facility]2016-08-01 09:05:00 Test Item Value Reference Range Interpretation Comments Potassium Lvl (test code = Potassium 4.3 3.5-5.1 Lvl) [facility]2016-08-01 09:05:00 Test Item Value Reference Range Interpretation Comments Chloride Lvl (test code = Chloride Lvl) 107 95-109 [facility]2016-08-01 09:05:00 Test Item Value Reference Range Interpretation Comments Sodium Lvl (test code = Sodium Lvl) 143 135-145 [facility]2016-08-01 09:05:00 Test Item Value Reference Range Interpretation Comments AGAP (test code = AGAP) 10.3 10.0-20.0 [facility] PasoDbkidimRDTHWOCFIP0464-48-13 09:05:00 Test Item Value Reference Range Interpretation Comments Lymphocytes # (test code = Lymphocytes 1.3 1.0-5.5 #) [facility] PasoLjdeqhpUDRGWEJBXM9798-09-40 09:05:00 Test Item Value Reference Range Interpretation Comments Segs-Bands # (test code = Segs-Bands #) 4.4 1.5-8.1 [facility] PasoYahudxwBFBDCTZQIA4927-15-25 09:05:00 Test Item Value Reference Range Interpretation Comments Eosinophils # (test code = Eosinophils 0.3 <=0.5 #) [facility] PasoNwpxhzmQKMDYJHXYA0920-17-33 09:05:00 Test Item Value Reference Range Interpretation Comments Monocytes # (test code = Monocytes #) 0.6 <=0.8 [facility] PasoWhmzgcnFVJGQFJEJM8559-13-86 09:05:00 Test Item Value Reference Range Interpretation Comments Basophils (test code = Basophils) 0.5 <=1.0 [facility] PasoCrljrmiZPCYSXZSOX7532-50-18 09:05:00 Test Item Value Reference Range Interpretation Comments Eosinophils (test code = Eosinophils) 4.9 <=4.0 [facility] PasoMozwuyhZQUZGBJLNM4549-22-21 09:05:00 Test Item Value Reference Range Interpretation Comments Monocytes (test code = Monocytes) 9.1 2.0-12.0 [facility] PasoKcjvzseDQLFRDRSIG2353-53-13 09:05:00 Test Item Value Reference Range Interpretation Comments Lymphocytes (test code = Lymphocytes) 18.9 20.0-40.0 [facility] PasoZufcmcnQMXXSXNCTI7545-42-50 09:05:00 Test Item Value Reference Range Interpretation Comments Segs (test code = Segs) 66.6 45.0-75.0 [facility] PasoXewmppaCUQZXJMJZU1253-31-83 09:05:00 Test Item Value Reference Range Interpretation Comments MPV (test code = MPV) 9.4 7.4-10.4 [facility]XbzrdjbPFHLKKTHMO8988-18-39 09:05:00 Test Item Value Reference Range Interpretation Comments Platelet (test code = Platelet) 168 133-450 [facility] HospitalDoiobstFWMNNOQCND1499-44-81 09:05:00 Test Item Value Reference Range Interpretation Comments RDW (test code = RDW) 13.4 11.5-14.5 [facility] HospitalEnhosmjFNUXBPJRWF6182-70-46 09:05:00 Test Item Value Reference Range Interpretation Comments MCHC (test code = MCHC) 32.8 32.0-36.0 [facility] HospitalXeqorjtWNNLUROVDM6435-10-99 09:05:00 Test Item Value Reference Range Interpretation Comments MCH (test code = MCH) 30.7 pg 27.0-31.0 [facility] HospitalZznvyzeWNRKDMBWNF9787-11-62 09:05:00 Test Item Value Reference Range Interpretation Comments MCV (test code = MCV) 93.6 80.0-98.0 [facility] HospitalUorwasbDCOXWYGTCE4931-73-57 09:05:00 Test Item Value Reference Range Interpretation Comments WBC (test code = WBC) 6.6 3.7-10.4 [facility] HospitalDrsqrxsNXLAMILQVT7867-84-02 09:05:00 Test Item Value Reference Range Interpretation Comments Hct (test code = Hct) 41.0 36.0-48.0 [facility] HospitalLlslaxzQBPHBCXYTG2894-39-42 09:05:00 Test Item Value Reference Range Interpretation Comments Hgb (test code = Hgb) 13.4 12.0-16.0 [facility] HospitalZkljwbfDTUSGALMTI7524-09-05 09:05:00 Test Item Value Reference Range Interpretation Comments RBC (test code = RBC) 4.38 4.20-5.40 [facility] BJGTCYEAJ0869-16-56 09:05:00 Test Item Value Reference Range Interpretation Comments Hgb A1C (test code = Hgb A1C) 10.3 [facility] FallsCHEM [id number] 09:05:00 Test Item Value Reference Range Interpretation Comments Magnesium Lvl (test code = Magnesium 1.8 1.8-2.4 Lvl) [facility] FallsCHEM GVAZJ4244-52-15 09:05:00 Test Item Value Reference Range Interpretation Comments Phosphorus (test code = Phosphorus) 2.4 2.5-4.5 [facility]2016-08-01 09:05:00 Test Item Value Reference Range Interpretation Comments CO2 (test code = CO2) 30 24-32 [facility]2016-08-01 09:05:00 Test Item Value Reference Range Interpretation Comments Glucose Lvl (test code = Glucose Lvl) 240 70-99 [facility]2016-08-01 09:05:00 Test Item Value Reference Range Interpretation Comments Creatinine Lvl (test code = Creatinine 0.80 0.50-1.40 Lvl) [facility]2016-08-01 09:05:00 Test Item Value Reference Range Interpretation Comments BUN (test code = BUN) 20 7-22 [facility]2016-08-01 09:05:00 Test Item Value Reference Range Interpretation Comments eGFR (test code = eGFR) 73 [facility]2016-08-01 09:05:00 Test Item Value Reference Range Interpretation Comments Albumin Lvl (test code = Albumin Lvl) 2.8 3.5-5.0 [facility]2016-08-01 09:05:00 Test Item Value Reference Range Interpretation Comments Calcium Lvl (test code = Calcium Lvl) 10.5 8.5-10.5 [facility]2016-08-01 09:05:00 Test Item Value Reference Range Interpretation Comments Potassium Lvl (test code = Potassium 4.3 3.5-5.1 Lvl) [facility]2016-08-01 09:05:00 Test Item Value Reference Range Interpretation Comments Chloride Lvl (test code = Chloride Lvl) 107 95-109 [facility]2016-08-01 09:05:00 Test Item Value Reference Range Interpretation Comments Sodium Lvl (test code = Sodium Lvl) 143 135-145 [facility]2016-08-01 09:05:00 Test Item Value Reference Range Interpretation Comments AGAP (test code = AGAP) 10.3 10.0-20.0 [facility] PasoTvmdbdnLHAKQXXAEB0209-05-78 09:05:00 Test Item Value Reference Range Interpretation Comments Lymphocytes # (test code = Lymphocytes 1.3 1.0-5.5 #) [facility] PasoTikqjxfSIUDWPVGBP5192-62-35 09:05:00 Test Item Value Reference Range Interpretation Comments Segs-Bands # (test code = Segs-Bands #) 4.4 1.5-8.1 [facility] PasoEqvkyecLYVIRSZRUO4987-69-94 09:05:00 Test Item Value Reference Range Interpretation Comments Eosinophils # (test code = Eosinophils 0.3 <=0.5 #) [facility] PasoTpkaoovEQPBCODXKJ4910-13-95 09:05:00 Test Item Value Reference Range Interpretation Comments Monocytes # (test code = Monocytes #) 0.6 <=0.8 [facility] PasoWjmidutFULOUZYJPR9541-35-80 09:05:00 Test Item Value Reference Range Interpretation Comments Basophils (test code = Basophils) 0.5 <=1.0 [facility] PasoIjrqbumBENBSKOZMY9956-04-72 09:05:00 Test Item Value Reference Range Interpretation Comments Eosinophils (test code = Eosinophils) 4.9 <=4.0 [facility] PasoWifuofiKBMHDFVRMJ6570-40-44 09:05:00 Test Item Value Reference Range Interpretation Comments Monocytes (test code = Monocytes) 9.1 2.0-12.0 [facility] PasoSloijnzNVCCTMDEID4893-86-77 09:05:00 Test Item Value Reference Range Interpretation Comments Lymphocytes (test code = Lymphocytes) 18.9 20.0-40.0 [facility] PasoMnpgneuMAIVDWNCPJ8982-47-34 09:05:00 Test Item Value Reference Range Interpretation Comments Segs (test code = Segs) 66.6 45.0-75.0 [facility] PasoErbfshsRQXUFXTZDK2103-25-99 09:05:00 Test Item Value Reference Range Interpretation Comments MPV (test code = MPV) 9.4 7.4-10.4 [facility] PasoXxktifrUEQRLWWOST5330-10-98 09:05:00 Test Item Value Reference Range Interpretation Comments Platelet (test code = Platelet) 168 133-450 [facility] PasoCapaghiRSQJPERREZ9488-92-99 09:05:00 Test Item Value Reference Range Interpretation Comments RDW (test code = RDW) 13.4 11.5-14.5 [facility] PasoCmlrfsuFXDKXNWYPV2058-72-78 09:05:00 Test Item Value Reference Range Interpretation Comments MCHC (test code = MCHC) 32.8 32.0-36.0 [facility] PasoBujlmdaLMOSZWSOTQ7243-73-29 09:05:00 Test Item Value Reference Range Interpretation Comments MCH (test code = MCH) 30.7 pg 27.0-31.0 [facility] HospitalFrpypjcUUOXUWQPVB2130-58-84 09:05:00 Test Item Value Reference Range Interpretation Comments MCV (test code = MCV) 93.6 80.0-98.0 [facility] HospitalMuywzwzEAYQLWYQAS1205-06-36 09:05:00 Test Item Value Reference Range Interpretation Comments WBC (test code = WBC) 6.6 3.7-10.4 [facility] PasoFuijrgcUIGVVQRVKZ3156-14-42 09:05:00 Test Item Value Reference Range Interpretation Comments Hct (test code = Hct) 41.0 36.0-48.0 [facility] HospitalHcmgbefYYHBFGUXGV1118-49-52 09:05:00 Test Item Value Reference Range Interpretation Comments Hgb (test code = Hgb) 13.4 12.0-16.0 [facility] PasoFubmquzRZJWAWGTIY9412-25-53 09:05:00 Test Item Value Reference Range Interpretation Comments RBC (test code = RBC) 4.38 4.20-5.40 [facility] ULBPBRZYL1251-66-04 09:05:00 Test Item Value Reference Range Interpretation Comments Hgb A1C (test code = Hgb A1C) 10.3 [facility] [id number] 09:05:00 Test Item Value Reference Range Interpretation Comments Magnesium Lvl (test code = Magnesium 1.8 1.8-2.4 Lvl) [facility]2016-08-01 09:05:00 Test Item Value Reference Range Interpretation Comments Phosphorus (test code = Phosphorus) 2.4 2.5-4.5 [facility]2016-08-01 09:05:00 Test Item Value Reference Range Interpretation Comments CO2 (test code = CO2) 30 24-32 [facility] LZVPZ5896-83-29 09:05:00 Test Item Value Reference Range Interpretation Comments Glucose Lvl (test code = Glucose Lvl) 240 70-99 [facility]2016-08-01 09:05:00 Test Item Value Reference Range Interpretation Comments Creatinine Lvl (test code = Creatinine 0.80 0.50-1.40 Lvl) [facility]2016-08-01 09:05:00 Test Item Value Reference Range Interpretation Comments BUN (test code = BUN) 20 7-22 [facility]2016-08-01 09:05:00 Test Item Value Reference Range Interpretation Comments eGFR (test code = eGFR) 73 [facility]2016-08-01 09:05:00 Test Item Value Reference Range Interpretation Comments Albumin Lvl (test code = Albumin Lvl) 2.8 3.5-5.0 [facility]2016-08-01 09:05:00 Test Item Value Reference Range Interpretation Comments Calcium Lvl (test code = Calcium Lvl) 10.5 8.5-10.5 [facility]2016-08-01 09:05:00 Test Item Value Reference Range Interpretation Comments Potassium Lvl (test code = Potassium 4.3 3.5-5.1 Lvl) [facility]2016-08-01 09:05:00 Test Item Value Reference Range Interpretation Comments Chloride Lvl (test code = Chloride Lvl) 107 95-109 [facility]2016-08-01 09:05:00 Test Item Value Reference Range Interpretation Comments Sodium Lvl (test code = Sodium Lvl) 143 135-145 [facility]2016-08-01 09:05:00 Test Item Value Reference Range Interpretation Comments AGAP (test code = AGAP) 10.3 10.0-20.0 [facility]NbumlctIOSYMXZGDK3380-99-70 09:05:00 Test Item Value Reference Range Interpretation Comments Lymphocytes # (test code = Lymphocytes 1.3 1.0-5.5 #) [facility] PasoQaboficWCSBWIKXBD9063-14-05 09:05:00 Test Item Value Reference Range Interpretation Comments Segs-Bands # (test code = Segs-Bands #) 4.4 1.5-8.1 [facility] PasoKlxcniuXJVBYWMDOM2699-00-67 09:05:00 Test Item Value Reference Range Interpretation Comments Eosinophils # (test code = Eosinophils 0.3 <=0.5 #) [facility] PasoBhrifpqZVUKYUTMLA1300-42-05 09:05:00 Test Item Value Reference Range Interpretation Comments Monocytes # (test code = Monocytes #) 0.6 <=0.8 [facility] PasoJjjbklkCGIWKRPZDP7495-15-98 09:05:00 Test Item Value Reference Range Interpretation Comments Basophils (test code = Basophils) 0.5 <=1.0 [facility] PasoNnoiablWWNNCSDZOZ5209-49-41 09:05:00 Test Item Value Reference Range Interpretation Comments Eosinophils (test code = Eosinophils) 4.9 <=4.0 [facility] PasoPkzqjldRPKBZHAWRQ5150-95-10 09:05:00 Test Item Value Reference Range Interpretation Comments Monocytes (test code = Monocytes) 9.1 2.0-12.0 [facility] PasoZnnbutoLQPBUEZWQB8244-39-58 09:05:00 Test Item Value Reference Range Interpretation Comments Lymphocytes (test code = Lymphocytes) 18.9 20.0-40.0 [facility] PasoSkdjidoORRRVOGRZU7083-91-12 09:05:00 Test Item Value Reference Range Interpretation Comments Segs (test code = Segs) 66.6 45.0-75.0 [facility] PasoIazkfczSUPFAXWPKQ7065-96-87 09:05:00 Test Item Value Reference Range Interpretation Comments MPV (test code = MPV) 9.4 7.4-10.4 [facility] PasoYlaoaczJTGKRHQUFO0826-84-91 09:05:00 Test Item Value Reference Range Interpretation Comments Platelet (test code = Platelet) 168 133-450 [facility] PasoSxwfxfdKHQPDLGNXH6935-09-72 09:05:00 Test Item Value Reference Range Interpretation Comments RDW (test code = RDW) 13.4 11.5-14.5 [facility] PasoUeplhowSDLODNNNIQ5007-09-56 09:05:00 Test Item Value Reference Range Interpretation Comments MCHC (test code = MCHC) 32.8 32.0-36.0 [facility] PasoBqdkywfLIRKNGOSBH9132-58-40 09:05:00 Test Item Value Reference Range Interpretation Comments MCH (test code = MCH) 30.7 pg 27.0-31.0 [facility] PasoKfctnwzEKNDNYIJZJ0849-69-11 09:05:00 Test Item Value Reference Range Interpretation Comments MCV (test code = MCV) 93.6 80.0-98.0 [facility] PasoWnqayvpZVXUQHXLWZ6353-32-95 09:05:00 Test Item Value Reference Range Interpretation Comments WBC (test code = WBC) 6.6 3.7-10.4 [facility] PasoUgtslwsXMFRYVNNCB6291-05-13 09:05:00 Test Item Value Reference Range Interpretation Comments Hct (test code = Hct) 41.0 36.0-48.0 [facility] PasoWfeunuaZNOICLWCAE2417-72-15 09:05:00 Test Item Value Reference Range Interpretation Comments Hgb (test code = Hgb) 13.4 12.0-16.0 [facility] PasoJrnjaaaEAGTAMHUDP3777-04-74 09:05:00 Test Item Value Reference Range Interpretation Comments RBC (test code = RBC) 4.38 4.20-5.40 [facility] ULCIYJPAU7674-78-54 09:05:00 Test Item Value Reference Range Interpretation Comments Hgb A1C (test code = Hgb A1C) 10.3 [facility]2016-08-01 09:05:00 Test Item Value Reference Range Interpretation Comments Magnesium Lvl (test code = Magnesium 1.8 1.8-2.4 Lvl) [facility]2016-08-01 09:05:00 Test Item Value Reference Range Interpretation Comments Phosphorus (test code = Phosphorus) 2.4 2.5-4.5 [facility]2016-08-01 09:05:00 Test Item Value Reference Range Interpretation Comments CO2 (test code = CO2) 30 24-32 [facility]2016-08-01 09:05:00 Test Item Value Reference Range Interpretation Comments Glucose Lvl (test code = Glucose Lvl) 240 70-99 [facility]2016-08-01 09:05:00 Test Item Value Reference Range Interpretation Comments Creatinine Lvl (test code = Creatinine 0.80 0.50-1.40 Lvl) [facility]2016-08-01 09:05:00 Test Item Value Reference Range Interpretation Comments BUN (test code = BUN) 20 7-22 [facility]2016-08-01 09:05:00 Test Item Value Reference Range Interpretation Comments eGFR (test code = eGFR) 73 [facility]2016-08-01 09:05:00 Test Item Value Reference Range Interpretation Comments Albumin Lvl (test code = Albumin Lvl) 2.8 3.5-5.0 [facility]2016-08-01 09:05:00 Test Item Value Reference Range Interpretation Comments Calcium Lvl (test code = Calcium Lvl) 10.5 8.5-10.5 [facility]2016-08-01 09:05:00 Test Item Value Reference Range Interpretation Comments Potassium Lvl (test code = Potassium 4.3 3.5-5.1 Lvl) [facility]2016-08-01 09:05:00 Test Item Value Reference Range Interpretation Comments Chloride Lvl (test code = Chloride Lvl) 107 95-109 [facility]2016-08-01 09:05:00 Test Item Value Reference Range Interpretation Comments Sodium Lvl (test code = Sodium Lvl) 143 135-145 [facility]2016-08-01 09:05:00 Test Item Value Reference Range Interpretation Comments AGAP (test code = AGAP) 10.3 10.0-20.0 [facility] PasoUkcpjutCOJNKCOGMK2644-00-96 09:05:00 Test Item Value Reference Range Interpretation Comments Lymphocytes # (test code = Lymphocytes 1.3 1.0-5.5 #) [facility] PasoUcvdjsgTUUKHGUXNN9182-08-23 09:05:00 Test Item Value Reference Range Interpretation Comments Segs-Bands # (test code = Segs-Bands #) 4.4 1.5-8.1 [facility] PasoYwttnhaQEVHJWYHIY4209-36-95 09:05:00 Test Item Value Reference Range Interpretation Comments Eosinophils # (test code = Eosinophils 0.3 <=0.5 #) [facility] PasoCzjaxpjKRCJATEOIX7794-95-82 09:05:00 Test Item Value Reference Range Interpretation Comments Monocytes # (test code = Monocytes #) 0.6 <=0.8 [facility] PasoTwtsxpbAWFXHPYAET1264-83-45 09:05:00 Test Item Value Reference Range Interpretation Comments Basophils (test code = Basophils) 0.5 <=1.0 [facility] PasoFkiampaPAFQRCKDHM7886-13-13 09:05:00 Test Item Value Reference Range Interpretation Comments Eosinophils (test code = Eosinophils) 4.9 <=4.0 [facility] PasoBzafmstKLPGMMPUAM4777-83-72 09:05:00 Test Item Value Reference Range Interpretation Comments Monocytes (test code = Monocytes) 9.1 2.0-12.0 [facility] PasoMtgbdmrKNPCNDDFNZ3570-18-14 09:05:00 Test Item Value Reference Range Interpretation Comments Lymphocytes (test code = Lymphocytes) 18.9 20.0-40.0 [facility] PasoMntaifhWMJXNRZEXW4174-90-48 09:05:00 Test Item Value Reference Range Interpretation Comments Segs (test code = Segs) 66.6 45.0-75.0 [facility] PasoXrtwbhnUMJLOSSYAR1757-83-58 09:05:00 Test Item Value Reference Range Interpretation Comments MPV (test code = MPV) 9.4 7.4-10.4 [place] 254356-08-01 09:05:00 Test Item Value Reference Range Interpretation Comments Platelet (test code = Platelet) 168 133-450 [facility]AqqgxndDNZVWYNCTJ1836-26-44 09:05:00 Test Item Value Reference Range Interpretation Comments RDW (test code = RDW) 13.4 11.5-14.5 [facility] HospitalLsbjeenVNHRADKLSP5784-87-86 09:05:00 Test Item Value Reference Range Interpretation Comments MCHC (test code = MCHC) 32.8 32.0-36.0 [facility]IepfnhfUWFXMKUEOP5566-28-83 09:05:00 Test Item Value Reference Range Interpretation Comments MCH (test code = MCH) 30.7 pg 27.0-31.0 [facility] HospitalCwutboyIUYSPJPBCX2174-81-86 09:05:00 Test Item Value Reference Range Interpretation Comments MCV (test code = MCV) 93.6 80.0-98.0 [facility] HospitalGoyyhjaUUDBYOHOIP6656-33-30 09:05:00 Test Item Value Reference Range Interpretation Comments WBC (test code = WBC) 6.6 3.7-10.4 [facility] HospitalMbucvejMKVAUDSXKM2327-80-01 09:05:00 Test Item Value Reference Range Interpretation Comments Hct (test code = Hct) 41.0 36.0-48.0 [facility] HospitalZipxbknSVUMUWAJWX8255-75-07 09:05:00 Test Item Value Reference Range Interpretation Comments Hgb (test code = Hgb) 13.4 12.0-16.0 [facility] HospitalLsmugbrQFKCNELURP0554-90-17 09:05:00 Test Item Value Reference Range Interpretation Comments RBC (test code = RBC) 4.38 4.20-5.40 [facility] HQFZKGYDW9521-48-11 09:05:00 Test Item Value Reference Range Interpretation Comments Hgb A1C (test code = Hgb A1C) 10.3 [facility]CHE[facility] PPOHR6195-33-22 09:05:00 Test Item Value Reference Range Interpretation Comments Magnesium Lvl (test code = Magnesium 1.8 1.8-2.4 Lvl) [facility] FallsCHEM FAPCF6064-25-49 09:05:00 Test Item Value Reference Range Interpretation Comments Phosphorus (test code = Phosphorus) 2.4 2.5-4.5 [facility] GHCBG8656-65-45 09:05:00 Test Item Value Reference Range Interpretation Comments CO2 (test code = CO2) 30 24-32 [facility]2016-08-01 09:05:00 Test Item Value Reference Range Interpretation Comments Glucose Lvl (test code = Glucose Lvl) 240 70-99 [facility]2016-08-01 09:05:00 Test Item Value Reference Range Interpretation Comments Creatinine Lvl (test code = Creatinine 0.80 0.50-1.40 Lvl) [facility]2016-08-01 09:05:00 Test Item Value Reference Range Interpretation Comments BUN (test code = BUN) 20 7-22 [facility]2016-08-01 09:05:00 Test Item Value Reference Range Interpretation Comments eGFR (test code = eGFR) 73 [facility]2016-08-01 09:05:00 Test Item Value Reference Range Interpretation Comments Albumin Lvl (test code = Albumin Lvl) 2.8 3.5-5.0 [facility]2016-08-01 09:05:00 Test Item Value Reference Range Interpretation Comments Calcium Lvl (test code = Calcium Lvl) 10.5 8.5-10.5 [facility]2016-08-01 09:05:00 Test Item Value Reference Range Interpretation Comments Potassium Lvl (test code = Potassium 4.3 3.5-5.1 Lvl) [facility]2016-08-01 09:05:00 Test Item Value Reference Range Interpretation Comments Chloride Lvl (test code = Chloride Lvl) 107 95-109 [facility]2016-08-01 09:05:00 Test Item Value Reference Range Interpretation Comments Sodium Lvl (test code = Sodium Lvl) 143 135-145 [facility]2016-08-01 09:05:00 Test Item Value Reference Range Interpretation Comments AGAP (test code = AGAP) 10.3 10.0-20.0 [facility] PasoKqbyihzLWWAIWIRIQ8900-97-45 09:05:00 Test Item Value Reference Range Interpretation Comments Lymphocytes # (test code = Lymphocytes 1.3 1.0-5.5 #) [facility] PasoOlqqkupGEMQQSJOKK6316-62-17 09:05:00 Test Item Value Reference Range Interpretation Comments Segs-Bands # (test code = Segs-Bands #) 4.4 1.5-8.1 [facility] PasoHadtjymCKUXGALZKG9956-84-13 09:05:00 Test Item Value Reference Range Interpretation Comments Eosinophils # (test code = Eosinophils 0.3 <=0.5 #) [facility] PasoIohvlhiEOLNLSOYTT8912-23-87 09:05:00 Test Item Value Reference Range Interpretation Comments Monocytes # (test code = Monocytes #) 0.6 <=0.8 [facility] PasoQxkbxjwQTNNHVEXBO2885-15-12 09:05:00 Test Item Value Reference Range Interpretation Comments Basophils (test code = Basophils) 0.5 <=1.0 [facility] PasoHfjshdaGMYFEQYFMH4071-61-57 09:05:00 Test Item Value Reference Range Interpretation Comments Eosinophils (test code = Eosinophils) 4.9 <=4.0 [facility] PasoQxhpazxNAPSECVIMB2212-66-20 09:05:00 Test Item Value Reference Range Interpretation Comments Monocytes (test code = Monocytes) 9.1 2.0-12.0 [facility] PasoRhrkubwTGJZJVGDAS5913-90-29 09:05:00 Test Item Value Reference Range Interpretation Comments Lymphocytes (test code = Lymphocytes) 18.9 20.0-40.0 [facility] PasoNzvnjggZGVBYYKOFF0866-64-28 09:05:00 Test Item Value Reference Range Interpretation Comments Segs (test code = Segs) 66.6 45.0-75.0 [facility] PasoEhkhltyHWDXJHKEKP9622-44-35 09:05:00 Test Item Value Reference Range Interpretation Comments MPV (test code = MPV) 9.4 7.4-10.4 [facility] PasoHujzouhHNINSQIGMI3641-29-37 09:05:00 Test Item Value Reference Range Interpretation Comments Platelet (test code = Platelet) 168 133-450 [facility] PasoJynfqqeYUDNCIJIEH8812-05-24 09:05:00 Test Item Value Reference Range Interpretation Comments RDW (test code = RDW) 13.4 11.5-14.5 [facility] PasoXyfblsuYGCFAAEBGP3200-61-11 09:05:00 Test Item Value Reference Range Interpretation Comments MCHC (test code = MCHC) 32.8 32.0-36.0 [facility] PasoRfaliioQSHZUNYKOB8648-52-57 09:05:00 Test Item Value Reference Range Interpretation Comments MCH (test code = MCH) 30.7 pg 27.0-31.0 [facility] PasoZrwneeiYDZCEPVWBU9250-61-02 09:05:00 Test Item Value Reference Range Interpretation Comments MCV (test code = MCV) 93.6 80.0-98.0 [facility]ZdggnecPTTAUKDHYO7555-12-82 09:05:00 Test Item Value Reference Range Interpretation Comments WBC (test code = WBC) 6.6 3.7-10.4 [facility] PasoIdnrpafNZYZBKQHOC7641-83-37 09:05:00 Test Item Value Reference Range Interpretation Comments Hct (test code = Hct) 41.0 36.0-48.0 [facility] HospitalGrmsnmkOFSDNRIKTM8415-04-10 09:05:00 Test Item Value Reference Range Interpretation Comments Hgb (test code = Hgb) 13.4 12.0-16.0 [facility] PasoWkoqdwxUKJZAENBES1357-98-07 09:05:00 Test Item Value Reference Range Interpretation Comments RBC (test code = RBC) 4.38 4.20-5.40 [facility] USBBVQSTZ1598-51-59 09:05:00 Test Item Value Reference Range Interpretation Comments Hgb A1C (test code = Hgb A1C) 10.3 [facility] OBPSX3903-85-90 09:05:00 Test Item Value Reference Range Interpretation Comments Magnesium Lvl (test code = Magnesium 1.8 1.8-2.4 Lvl) [facility]2016-08-01 09:05:00 Test Item Value Reference Range Interpretation Comments Phosphorus (test code = Phosphorus) 2.4 2.5-4.5 [facility]2016-08-01 09:05:00 Test Item Value Reference Range Interpretation Comments CO2 (test code = CO2) 30 24-32 [facility]2016-08-01 09:05:00 Test Item Value Reference Range Interpretation Comments Glucose Lvl (test code = Glucose Lvl) 240 70-99 [facility]2016-08-01 09:05:00 Test Item Value Reference Range Interpretation Comments Creatinine Lvl (test code = Creatinine 0.80 0.50-1.40 Lvl) [facility]2016-08-01 09:05:00 Test Item Value Reference Range Interpretation Comments BUN (test code = BUN) 20 7-22 [facility]2016-08-01 09:05:00 Test Item Value Reference Range Interpretation Comments eGFR (test code = eGFR) 73 [facility]2016-08-01 09:05:00 Test Item Value Reference Range Interpretation Comments Albumin Lvl (test code = Albumin Lvl) 2.8 3.5-5.0 [facility]2016-08-01 09:05:00 Test Item Value Reference Range Interpretation Comments Calcium Lvl (test code = Calcium Lvl) 10.5 8.5-10.5 [facility]2016-08-01 09:05:00 Test Item Value Reference Range Interpretation Comments Potassium Lvl (test code = Potassium 4.3 3.5-5.1 Lvl) [facility]2016-08-01 09:05:00 Test Item Value Reference Range Interpretation Comments Chloride Lvl (test code = Chloride Lvl) 107 95-109 [facility]2016-08-01 09:05:00 Test Item Value Reference Range Interpretation Comments Sodium Lvl (test code = Sodium Lvl) 143 135-145 [facility]2016-08-01 09:05:00 Test Item Value Reference Range Interpretation Comments AGAP (test code = AGAP) 10.3 10.0-20.0 [facility] PasoNmfloyhIYHGLQIYJD0682-02-43 09:05:00 Test Item Value Reference Range Interpretation Comments Lymphocytes # (test code = Lymphocytes 1.3 1.0-5.5 #) [facility] PasoJlqcegoTOZILYBJVS5682-79-91 09:05:00 Test Item Value Reference Range Interpretation Comments Segs-Bands # (test code = Segs-Bands #) 4.4 1.5-8.1 [facility] PasoEiipplmLCDEQYSYYZ9957-57-84 09:05:00 Test Item Value Reference Range Interpretation Comments Eosinophils # (test code = Eosinophils 0.3 <=0.5 #) [facility] PasoAbwztgeHWTRVHCURJ9960-92-03 09:05:00 Test Item Value Reference Range Interpretation Comments Monocytes # (test code = Monocytes #) 0.6 <=0.8 [facility] PasoBvzhmjiTMZEXCNKHX8817-40-02 09:05:00 Test Item Value Reference Range Interpretation Comments Basophils (test code = Basophils) 0.5 <=1.0 [facility] PasoTesftwwASBBHTVKBK9107-33-88 09:05:00 Test Item Value Reference Range Interpretation Comments Eosinophils (test code = Eosinophils) 4.9 <=4.0 [facility] PasoTqafcazCGKRSKLIZC0863-20-21 09:05:00 Test Item Value Reference Range Interpretation Comments Monocytes (test code = Monocytes) 9.1 2.0-12.0 [facility] PasoGeohwnfDVQHRZXNOY7078-07-07 09:05:00 Test Item Value Reference Range Interpretation Comments Lymphocytes (test code = Lymphocytes) 18.9 20.0-40.0 [facility] PasoKvktwntEJHWRGMUWL2571-12-84 09:05:00 Test Item Value Reference Range Interpretation Comments Segs (test code = Segs) 66.6 45.0-75.0 [facility] PasoXbyfseiGKLUCTCOYS0398-63-61 09:05:00 Test Item Value Reference Range Interpretation Comments MPV (test code = MPV) 9.4 7.4-10.4 [facility] PasoHbtznmpDIGOPYLDQZ4999-78-09 09:05:00 Test Item Value Reference Range Interpretation Comments Platelet (test code = Platelet) 168 133-450 [facility] PasoPwvzqedJXJUICGBMI6183-29-20 09:05:00 Test Item Value Reference Range Interpretation Comments RDW (test code = RDW) 13.4 11.5-14.5 [facility] PasoAssiqnyZRNZSPFARQ0253-65-61 09:05:00 Test Item Value Reference Range Interpretation Comments MCHC (test code = MCHC) 32.8 32.0-36.0 [facility] PasoNrxfzhqBVUIGXMXFM9469-75-87 09:05:00 Test Item Value Reference Range Interpretation Comments MCH (test code = MCH) 30.7 pg 27.0-31.0 [facility] PasoOfxxgqjGLSAGFJUBH1261-20-50 09:05:00 Test Item Value Reference Range Interpretation Comments MCV (test code = MCV) 93.6 80.0-98.0 [facility] PasoYwtyundPNGOJVXVAQ5641-55-31 09:05:00 Test Item Value Reference Range Interpretation Comments WBC (test code = WBC) 6.6 3.7-10.4 [facility] PasoBidhvpbDBVKEQUEEG7436-31-88 09:05:00 Test Item Value Reference Range Interpretation Comments Hct (test code = Hct) 41.0 36.0-48.0 [facility] PasoUwbopvlJUUBORKARE5213-64-70 09:05:00 Test Item Value Reference Range Interpretation Comments Hgb (test code = Hgb) 13.4 12.0-16.0 [facility] PasoPsvehfrRXSHFHIMRX0214-10-08 09:05:00 Test Item Value Reference Range Interpretation Comments RBC (test code = RBC) 4.38 4.20-5.40 [facility] TQCFBCMJM5526-49-86 09:05:00 Test Item Value Reference Range Interpretation Comments Hgb A1C (test code = Hgb A1C) 10.3 [facility]2016-08-01 09:05:00 Test Item Value Reference Range Interpretation Comments Magnesium Lvl (test code = Magnesium 1.8 1.8-2.4 Lvl) [facility]2016-08-01 09:05:00 Test Item Value Reference Range Interpretation Comments Phosphorus (test code = Phosphorus) 2.4 2.5-4.5 [facility]2016-08-01 09:05:00 Test Item Value Reference Range Interpretation Comments CO2 (test code = CO2) 30 24-32 [facility]2016-08-01 09:05:00 Test Item Value Reference Range Interpretation Comments Glucose Lvl (test code = Glucose Lvl) 240 70-99 [facility]2016-08-01 09:05:00 Test Item Value Reference Range Interpretation Comments Creatinine Lvl (test code = Creatinine 0.80 0.50-1.40 Lvl) [facility]2016-08-01 09:05:00 Test Item Value Reference Range Interpretation Comments BUN (test code = BUN) 20 7-22 [facility]2016-08-01 09:05:00 Test Item Value Reference Range Interpretation Comments eGFR (test code = eGFR) 73 [facility]2016-08-01 09:05:00 Test Item Value Reference Range Interpretation Comments Albumin Lvl (test code = Albumin Lvl) 2.8 3.5-5.0 [facility]2016-08-01 09:05:00 Test Item Value Reference Range Interpretation Comments Calcium Lvl (test code = Calcium Lvl) 10.5 8.5-10.5 [facility]2016-08-01 09:05:00 Test Item Value Reference Range Interpretation Comments Potassium Lvl (test code = Potassium 4.3 3.5-5.1 Lvl) [facility]2016-08-01 09:05:00 Test Item Value Reference Range Interpretation Comments Chloride Lvl (test code = Chloride Lvl) 107 95-109 [facility]2016-08-01 09:05:00 Test Item Value Reference Range Interpretation Comments Sodium Lvl (test code = Sodium Lvl) 143 135-145 [facility]2016-08-01 09:05:00 Test Item Value Reference Range Interpretation Comments AGAP (test code = AGAP) 10.3 10.0-20.0 [facility] PasoNdourcnRKJNLMZMYX1355-16-03 09:05:00 Test Item Value Reference Range Interpretation Comments Lymphocytes # (test code = Lymphocytes 1.3 1.0-5.5 #) [facility] PasoRmfnasuXDINXOVGRB0990-35-93 09:05:00 Test Item Value Reference Range Interpretation Comments Segs-Bands # (test code = Segs-Bands #) 4.4 1.5-8.1 [facility] PasoAixvsofXPCYLJSCLN5722-05-28 09:05:00 Test Item Value Reference Range Interpretation Comments Eosinophils # (test code = Eosinophils 0.3 <=0.5 #) [facility] PasoBxzeqkkYXUXWHTIBR2062-72-37 09:05:00 Test Item Value Reference Range Interpretation Comments Monocytes # (test code = Monocytes #) 0.6 <=0.8 [facility] PasoVzxtpqaIQBLWWOHAE0911-92-89 09:05:00 Test Item Value Reference Range Interpretation Comments Basophils (test code = Basophils) 0.5 <=1.0 [facility] PasoLquykzkYSMNHWQHXI1054-22-83 09:05:00 Test Item Value Reference Range Interpretation Comments Eosinophils (test code = Eosinophils) 4.9 <=4.0 [facility] PasoLosewfwKPPATHFBFD5925-63-83 09:05:00 Test Item Value Reference Range Interpretation Comments Monocytes (test code = Monocytes) 9.1 2.0-12.0 [facility] PasoXdbswxjAJPLRYJWDA0733-60-36 09:05:00 Test Item Value Reference Range Interpretation Comments Lymphocytes (test code = Lymphocytes) 18.9 20.0-40.0 [facility] PasoNzghvrhERKHQDMDFC1014-95-70 09:05:00 Test Item Value Reference Range Interpretation Comments Segs (test code = Segs) 66.6 45.0-75.0 [facility] PasoWifkpmtOYWWEFPQRU3337-56-81 09:05:00 Test Item Value Reference Range Interpretation Comments MPV (test code = MPV) 9.4 7.4-10.4 [facility] PasoOlvreveWXKYVEUQVI5742-58-67 09:05:00 Test Item Value Reference Range Interpretation Comments Platelet (test code = Platelet) 168 133-450 [facility] FallsPiwkpgoSUWSXWRZJU6707-80-43 09:05:00 Test Item Value Reference Range Interpretation Comments RDW (test code = RDW) 13.4 11.5-14.5 [facility] FallsUmmyuxjFQLUXFIUHS7940-11-62 09:05:00 Test Item Value Reference Range Interpretation Comments MCHC (test code = MCHC) 32.8 32.0-36.0 [facility]RjyygygMQCGPDFJGO2909-77-49 09:05:00 Test Item Value Reference Range Interpretation Comments MCH (test code = MCH) 30.7 pg 27.0-31.0 [facility] HospitalAawreqbXICEIZKCLD6548-35-48 09:05:00 Test Item Value Reference Range Interpretation Comments MCV (test code = MCV) 93.6 80.0-98.0 [facility] HospitalJesxqltYWTJYCQPUR1023-10-01 09:05:00 Test Item Value Reference Range Interpretation Comments WBC (test code = WBC) 6.6 3.7-10.4 [facility] HospitalJjyvmxnYPZWTHGEIG0290-08-51 09:05:00 Test Item Value Reference Range Interpretation Comments Hct (test code = Hct) 41.0 36.0-48.0 [facility] HospitalOdqkdnvSSCBKSULUM1306-08-02 09:05:00 Test Item Value Reference Range Interpretation Comments Hgb (test code = Hgb) 13.4 12.0-16.0 [facility] FallsSxujcnkNVMGXSFHWN4942-34-89 09:05:00 Test Item Value Reference Range Interpretation Comments RBC (test code = RBC) 4.38 4.20-5.40 [facility] DXQVMRVFT9893-89-29 09:05:00 Test Item Value Reference Range Interpretation Comments Hgb A1C (test code = Hgb A1C) 10.3 [facility] FallsCHEM [id number] 09:05:00 Test Item Value Reference Range Interpretation Comments Magnesium Lvl (test code = Magnesium 1.8 1.8-2.4 Lvl) [facility] FallsCHEM [id number] 09:05:00 Test Item Value Reference Range Interpretation Comments Phosphorus (test code = Phosphorus) 2.4 2.5-4.5 [facility] FallsCHEM GUXXK3007-14-02 09:05:00 Test Item Value Reference Range Interpretation Comments CO2 (test code = CO2) 30 24-32 [facility] FallsCHEM [id number] 09:05:00 Test Item Value Reference Range Interpretation Comments Glucose Lvl (test code = Glucose Lvl) 240 70-99 [facility]2016-08-01 09:05:00 Test Item Value Reference Range Interpretation Comments Creatinine Lvl (test code = Creatinine 0.80 0.50-1.40 Lvl) [facility]2016-08-01 09:05:00 Test Item Value Reference Range Interpretation Comments BUN (test code = BUN) 20 7-22 [facility]2016-08-01 09:05:00 Test Item Value Reference Range Interpretation Comments eGFR (test code = eGFR) 73 [facility]2016-08-01 09:05:00 Test Item Value Reference Range Interpretation Comments Albumin Lvl (test code = Albumin Lvl) 2.8 3.5-5.0 [facility]2016-08-01 09:05:00 Test Item Value Reference Range Interpretation Comments Calcium Lvl (test code = Calcium Lvl) 10.5 8.5-10.5 [facility]2016-08-01 09:05:00 Test Item Value Reference Range Interpretation Comments Potassium Lvl (test code = Potassium 4.3 3.5-5.1 Lvl) [facility]2016-08-01 09:05:00 Test Item Value Reference Range Interpretation Comments Chloride Lvl (test code = Chloride Lvl) 107 95-109 [facility]2016-08-01 09:05:00 Test Item Value Reference Range Interpretation Comments Sodium Lvl (test code = Sodium Lvl) 143 135-145 [facility]2016-08-01 09:05:00 Test Item Value Reference Range Interpretation Comments AGAP (test code = AGAP) 10.3 10.0-20.0 [facility] PasoJlyewzeHLUPJWZKPG3525-65-56 09:05:00 Test Item Value Reference Range Interpretation Comments Lymphocytes # (test code = Lymphocytes 1.3 1.0-5.5 #) [facility] PasoOfbziudXOZENYEPKB0815-19-61 09:05:00 Test Item Value Reference Range Interpretation Comments Segs-Bands # (test code = Segs-Bands #) 4.4 1.5-8.1 [facility] PasoAssxswmCGUOHSHBLJ1275-42-85 09:05:00 Test Item Value Reference Range Interpretation Comments Eosinophils # (test code 0.3 See_Comment [A utomated message] The = Eosinophils #) system whic h generated this result tra nsmitted reference range : <=0.5. The reference r leatha was not used to int erpret this result as normal/abnormal . [facility] PasoGadhcfyWTRALHXRZT0901-61-97 09:05:00 Test Item Value Reference Range Interpretation Comments Monocytes # (test code 0.6 See_Comment [Aut omated message] The = Monocytes #) system which generated this result tra nsmitted reference range : <=0.8. The reference r leatha was not used to int erpret this result as normal/abnormal . [facility] PasoFxltnkzREFGQXMLXC6453-87-68 09:05:00 Test Item Value Reference Range Interpretation Comments Basophils (test code = 0.5 See_Comment [Aut omated message] The Basophils) system which ge nerated this result tra nsmitted reference range : <=1.0. The reference r leatha was not used to int erpret this result as normal/abnormal . [facility] PasoPcqjcazZLBLNFLFJC4457-06-33 09:05:00 Test Item Value Reference Range Interpretation Comments Eosinophils (test code = 4.9 See_Comment [A utomated message] The Eosinophils) system which ge nerated this result tra nsmitted reference range : <=4.0. The reference r leatha was not used to int erpret this result as normal/abnormal . [facility] PasoXuxdhgnMCEYJIMAHL0636-67-77 09:05:00 Test Item Value Reference Range Interpretation Comments Monocytes (test code = Monocytes) 9.1 2.0-12.0 [facility] PasoMvvkeygJTXFDTIKZW0322-54-24 09:05:00 Test Item Value Reference Range Interpretation Comments Lymphocytes (test code = Lymphocytes) 18.9 20.0-40.0 [facility] PasoMbgjviyYWQZZYEJXS2245-58-55 09:05:00 Test Item Value Reference Range Interpretation Comments Segs (test code = Segs) 66.6 45.0-75.0 [facility] PasoToatilwGSAMYQXHUG1468-28-63 09:05:00 Test Item Value Reference Range Interpretation Comments MPV (test code = MPV) 9.4 7.4-10.4 [facility] PasoHimbvidITXIGXYWSW3710-62-72 09:05:00 Test Item Value Reference Range Interpretation Comments Platelet (test code = Platelet) 168 133-450 [facility] PasoWrtoxrkYOIZWBYHOM5805-89-32 09:05:00 Test Item Value Reference Range Interpretation Comments RDW (test code = RDW) 13.4 11.5-14.5 [facility] PasoLvuxixfKMKFLXDHEB9520-73-35 09:05:00 Test Item Value Reference Range Interpretation Comments MCHC (test code = MCHC) 32.8 32.0-36.0 [facility] PasoHiguhbeMHCMNRJBDU5723-81-82 09:05:00 Test Item Value Reference Range Interpretation Comments MCH (test code = MCH) 30.7 pg 27.0-31.0 [facility]2016-08-01 09:05:00 Test Item Value Reference Range Interpretation Comments Magnesium Lvl (test code = Magnesium 1.8 1.8-2.4 Lvl) [facility]2016-08-01 09:05:00 Test Item Value Reference Range Interpretation Comments Phosphorus (test code = Phosphorus) 2.4 2.5-4.5 [facility]2016-08-01 09:05:00 Test Item Value Reference Range Interpretation Comments CO2 (test code = CO2) 30 24-32 [facility]2016-08-01 09:05:00 Test Item Value Reference Range Interpretation Comments Glucose Lvl (test code = Glucose Lvl) 240 70-99 [facility]2016-08-01 09:05:00 Test Item Value Reference Range Interpretation Comments Creatinine Lvl (test code = Creatinine 0.80 0.50-1.40 Lvl) [facility] PasoTblomjhJKMZOYAJHC0511-80-89 09:05:00 Test Item Value Reference Range Interpretation Comments MCV (test code = MCV) 93.6 80.0-98.0 [facility]2016-08-01 09:05:00 Test Item Value Reference Range Interpretation Comments BUN (test code = BUN) 20 7-22 [facility]2016-08-01 09:05:00 Test Item Value Reference Range Interpretation Comments eGFR (test code = eGFR) 73 [facility]2016-08-01 09:05:00 Test Item Value Reference Range Interpretation Comments Albumin Lvl (test code = Albumin Lvl) 2.8 3.5-5.0 [facility]2016-08-01 09:05:00 Test Item Value Reference Range Interpretation Comments Calcium Lvl (test code = Calcium Lvl) 10.5 8.5-10.5 [facility]2016-08-01 09:05:00 Test Item Value Reference Range Interpretation Comments Potassium Lvl (test code = Potassium 4.3 3.5-5.1 Lvl) [facility]2016-08-01 09:05:00 Test Item Value Reference Range Interpretation Comments Chloride Lvl (test code = Chloride Lvl) 107 95-109 [facility]2016-08-01 09:05:00 Test Item Value Reference Range Interpretation Comments Sodium Lvl (test code = Sodium Lvl) 143 135-145 [facility]2016-08-01 09:05:00 Test Item Value Reference Range Interpretation Comments AGAP (test code = AGAP) 10.3 10.0-20.0 [facility] PasoBzjufavXIBTKBPFEL9045-69-72 09:05:00 Test Item Value Reference Range Interpretation Comments Lymphocytes # (test code = Lymphocytes 1.3 1.0-5.5 #) [facility] PasoMliinfzJGWMWDUMXE6222-75-23 09:05:00 Test Item Value Reference Range Interpretation Comments Segs-Bands # (test code = Segs-Bands #) 4.4 1.5-8.1 [facility] PasoYnfkyhoNUQDABIJFB6864-95-11 09:05:00 Test Item Value Reference Range Interpretation Comments WBC (test code = WBC) 6.6 3.7-10.4 [facility] PasoKyfxiizPRORWASBBH3934-26-55 09:05:00 Test Item Value Reference Range Interpretation Comments Eosinophils # (test code = Eosinophils 0.3 <=0.5 #) [facility] PasoKrlpbalWRBWIHCCNA8835-56-24 09:05:00 Test Item Value Reference Range Interpretation Comments Monocytes # (test code = Monocytes #) 0.6 <=0.8 [facility] PasoYizcakiXDDVSYPKYL6686-86-54 09:05:00 Test Item Value Reference Range Interpretation Comments Basophils (test code = Basophils) 0.5 <=1.0 [facility] PasoBttbydgGPPPSVWFSY7417-71-04 09:05:00 Test Item Value Reference Range Interpretation Comments Eosinophils (test code = Eosinophils) 4.9 <=4.0 [facility] PasoQrxqonqRTLZXRNSTP4702-65-15 09:05:00 Test Item Value Reference Range Interpretation Comments Monocytes (test code = Monocytes) 9.1 2.0-12.0 [facility] PasoXlibkgmTIGUKRYGPY4577-91-20 09:05:00 Test Item Value Reference Range Interpretation Comments Lymphocytes (test code = Lymphocytes) 18.9 20.0-40.0 [facility] PasoKxqvfqyYQCSLSQMJO0160-81-36 09:05:00 Test Item Value Reference Range Interpretation Comments Segs (test code = Segs) 66.6 45.0-75.0 [facility] PasoRgmuuziKLQFWHDACZ6066-03-80 09:05:00 Test Item Value Reference Range Interpretation Comments MPV (test code = MPV) 9.4 7.4-10.4 [facility] PasoUzgdhytATURXNGAFE9454-09-97 09:05:00 Test Item Value Reference Range Interpretation Comments Platelet (test code = Platelet) 168 133-450 [facility] PasoVdonnluHMYLRQGIOE6580-75-24 09:05:00 Test Item Value Reference Range Interpretation Comments RDW (test code = RDW) 13.4 11.5-14.5 [facility] PasoXvvctxtDGDAVXSFEF9769-68-65 09:05:00 Test Item Value Reference Range Interpretation Comments Hct (test code = Hct) 41.0 36.0-48.0 [facility] PasoTfgqpubLRXUJTEOXT4021-08-38 09:05:00 Test Item Value Reference Range Interpretation Comments MCHC (test code = MCHC) 32.8 32.0-36.0 [facility] PasoUphhditVZQOMXHRGJ6582-05-83 09:05:00 Test Item Value Reference Range Interpretation Comments MCH (test code = MCH) 30.7 pg 27.0-31.0 [facility] PasoZchuevjNPLKCOSKUS1205-11-90 09:05:00 Test Item Value Reference Range Interpretation Comments MCV (test code = MCV) 93.6 80.0-98.0 [facility] PasoXdkigywPIAHHANJCP4349-54-45 09:05:00 Test Item Value Reference Range Interpretation Comments WBC (test code = WBC) 6.6 3.7-10.4 [facility] PasoKjivgrhSXRNAXFUKB1496-68-61 09:05:00 Test Item Value Reference Range Interpretation Comments Hct (test code = Hct) 41.0 36.0-48.0 [facility] PasoLgnyeheLFMEUGNDCN0310-52-58 09:05:00 Test Item Value Reference Range Interpretation Comments Hgb (test code = Hgb) 13.4 12.0-16.0 [facility] PasoEfxnkdgIAMRMMYPYJ4165-61-89 09:05:00 Test Item Value Reference Range Interpretation Comments RBC (test code = RBC) 4.38 4.20-5.40 [facility] BZPYSEZER8348-59-98 09:05:00 Test Item Value Reference Range Interpretation Comments Hgb A1C (test code = Hgb A1C) 10.3 [facility]XpdiiahYSRTSTUNBM8149-55-18 09:05:00 Test Item Value Reference Range Interpretation Comments Hgb (test code = Hgb) 13.4 12.0-16.0 [facility] PasoLgoiydgFYVHDLCNUG3580-56-02 09:05:00 Test Item Value Reference Range Interpretation Comments RBC (test code = RBC) 4.38 4.20-5.40 [facility]2016-08-01 09:05:00 Test Item Value Reference Range Interpretation Comments Hgb A1C (test code = Hgb A1C) 10.3 [facility]2016-08-01 09:05:00 Test Item Value Reference Range Interpretation Comments Magnesium Lvl (test code = Magnesium 1.8 1.8-2.4 Lvl) [facility]2016-08-01 09:05:00 Test Item Value Reference Range Interpretation Comments Phosphorus (test code = Phosphorus) 2.4 2.5-4.5 [facility]2016-08-01 09:05:00 Test Item Value Reference Range Interpretation Comments CO2 (test code = CO2) 30 24-32 [facility]2016-08-01 09:05:00 Test Item Value Reference Range Interpretation Comments Glucose Lvl (test code = Glucose Lvl) 240 70-99 [facility]2016-08-01 09:05:00 Test Item Value Reference Range Interpretation Comments Creatinine Lvl (test code = Creatinine 0.80 0.50-1.40 Lvl) [facility]2016-08-01 09:05:00 Test Item Value Reference Range Interpretation Comments BUN (test code = BUN) 20 7-22 [facility]2016-08-01 09:05:00 Test Item Value Reference Range Interpretation Comments eGFR (test code = eGFR) 73 [facility]2016-08-01 09:05:00 Test Item Value Reference Range Interpretation Comments Albumin Lvl (test code = Albumin Lvl) 2.8 3.5-5.0 [place] 257186-08-01 09:05:00 Test Item Value Reference Range Interpretation Comments Calcium Lvl (test code = Calcium Lvl) 10.5 8.5-10.5 [facility]2016-08-01 09:05:00 Test Item Value Reference Range Interpretation Comments Potassium Lvl (test code = Potassium 4.3 3.5-5.1 Lvl) [facility]2016-08-01 09:05:00 Test Item Value Reference Range Interpretation Comments Chloride Lvl (test code = Chloride Lvl) 107 95-109 [facility]2016-08-01 09:05:00 Test Item Value Reference Range Interpretation Comments Sodium Lvl (test code = Sodium Lvl) 143 135-145 [facility]2016-08-01 09:05:00 Test Item Value Reference Range Interpretation Comments AGAP (test code = AGAP) 10.3 10.0-20.0 [facility] PasoCyypqmeSXTXBUEOWF0982-25-88 09:05:00 Test Item Value Reference Range Interpretation Comments Lymphocytes # (test code = Lymphocytes 1.3 1.0-5.5 #) [facility] PasoLuxybulYTQEWFNKVD7603-33-40 09:05:00 Test Item Value Reference Range Interpretation Comments Segs-Bands # (test code = Segs-Bands #) 4.4 1.5-8.1 [facility] PasoGahtpsmKKSRUEFGBV9061-75-63 09:05:00 Test Item Value Reference Range Interpretation Comments Eosinophils # (test code = Eosinophils 0.3 <=0.5 #) [facility] PasoKpokrohQZKPJLGZWD2650-84-25 09:05:00 Test Item Value Reference Range Interpretation Comments Monocytes # (test code = Monocytes #) 0.6 <=0.8 [facility] PasoUcobwtjZHJWELUSHD8722-62-51 09:05:00 Test Item Value Reference Range Interpretation Comments Basophils (test code = Basophils) 0.5 <=1.0 [facility] PasoQrhqzobMWSJVFQQMZ1659-25-66 09:05:00 Test Item Value Reference Range Interpretation Comments Eosinophils (test code = Eosinophils) 4.9 <=4.0 [facility] PasoJzkvxwoFORKCZBICX2808-39-26 09:05:00 Test Item Value Reference Range Interpretation Comments Monocytes (test code = Monocytes) 9.1 2.0-12.0 [facility] PasoPpoedryAYZRTSERNY1017-16-58 09:05:00 Test Item Value Reference Range Interpretation Comments Lymphocytes (test code = Lymphocytes) 18.9 20.0-40.0 [facility]TdsjhcsKPDVRVIRMK9889-90-31 09:05:00 Test Item Value Reference Range Interpretation Comments Segs (test code = Segs) 66.6 45.0-75.0 [facility] HospitalPnjghunNDEHVLPRPJ3594-11-26 09:05:00 Test Item Value Reference Range Interpretation Comments MPV (test code = MPV) 9.4 7.4-10.4 [facility] HospitalZbyziulBECCRZBFXS4537-96-12 09:05:00 Test Item Value Reference Range Interpretation Comments Platelet (test code = Platelet) 168 133-450 [facility] HospitalRfcqeakMNAMGXPNRK5563-80-35 09:05:00 Test Item Value Reference Range Interpretation Comments RDW (test code = RDW) 13.4 11.5-14.5 [facility] HospitalPlsjusvOABNPPUMKM8117-40-48 09:05:00 Test Item Value Reference Range Interpretation Comments MCHC (test code = MCHC) 32.8 32.0-36.0 [facility] HospitalEbatgocOGIXMZBXFR3444-01-35 09:05:00 Test Item Value Reference Range Interpretation Comments MCH (test code = MCH) 30.7 pg 27.0-31.0 [facility] HospitalIkcdmfxRRHUUTICJV3988-93-42 09:05:00 Test Item Value Reference Range Interpretation Comments MCV (test code = MCV) 93.6 80.0-98.0 [facility] HospitalFvyeullRNGHCOCCJX0455-01-15 09:05:00 Test Item Value Reference Range Interpretation Comments WBC (test code = WBC) 6.6 3.7-10.4 [facility] HospitalFjmbydzLFFXNEDLVJ6540-95-56 09:05:00 Test Item Value Reference Range Interpretation Comments Hct (test code = Hct) 41.0 36.0-48.0 [facility] HospitalHfppyzgORWYBCTEON8019-17-04 09:05:00 Test Item Value Reference Range Interpretation Comments Hgb (test code = Hgb) 13.4 12.0-16.0 [facility] HospitalWratqcgTTVZWEZLNF0360-48-86 09:05:00 Test Item Value Reference Range Interpretation Comments RBC (test code = RBC) 4.38 4.20-5.40 [facility] KMDYPQZJP4912-67-21 09:05:00 Test Item Value Reference Range Interpretation Comments Hgb A1C (test code = Hgb A1C) 10.3 [facility]2016-07-30 09:17:00 Test Item Value Reference Range Interpretation Comments eGFR (test code = eGFR) 81 [facility]2016-07-30 09:17:00 Test Item Value Reference Range Interpretation Comments Creatinine Lvl (test code = Creatinine 0.73 0.50-1.40 Lvl) [facility]2016-07-30 09:17:00 Test Item Value Reference Range Interpretation Comments AST (test code = AST) 7 See_Comment [Auto mated message] The system which ge nerated this result transmit juan reference range : <=37. The reference range was not used to interpr et this result as polina l/abnormal. [facility]2016-07-30 09:17:00 Test Item Value Reference Range Interpretation Comments Total Protein (test code = Total 5.0 6.4-8.4 Protein) [facility]2016-07-30 09:17:00 Test Item Value Reference Range Interpretation Comments Alk Phos (test code = Alk Phos) 73 39-136 [facility]2016-07-30 09:17:00 Test Item Value Reference Range Interpretation Comments ALT (test code = ALT) 29 See_Comment [Auto mated message] The system which ge nerated this result transmit juan reference range : <=65. The reference range was not used to interpr et this result as polina l/abnormal. [facility]2016-07-30 09:17:00 Test Item Value Reference Range Interpretation Comments Bili Total (test code = Bili Total) 0.7 0.2-1.3 [facility]2016-07-30 09:17:00 Test Item Value Reference Range Interpretation Comments Albumin Lvl (test code = Albumin Lvl) 2.7 3.5-5.0 [facility]2016-07-30 09:17:00 Test Item Value Reference Range Interpretation Comments AGAP (test code = AGAP) 10.9 10.0-20.0 [facility]2016-07-30 09:17:00 Test Item Value Reference Range Interpretation Comments Calcium Lvl (test code = Calcium Lvl) 10.0 8.5-10.5 [facility]2016-07-30 09:17:00 Test Item Value Reference Range Interpretation Comments Glucose Lvl (test code = Glucose Lvl) 208 70-99 [facility]2016-07-30 09:17:00 Test Item Value Reference Range Interpretation Comments Potassium Lvl (test code = Potassium 3.9 3.5-5.1 Lvl) [facility]2016-07-30 09:17:00 Test Item Value Reference Range Interpretation Comments BUN (test code = BUN) 20 7-22 [place] 257186-07-30 09:17:00 Test Item Value Reference Range Interpretation Comments Sodium Lvl (test code = Sodium Lvl) 145 135-145 [facility]2016-07-30 09:17:00 Test Item Value Reference Range Interpretation Comments Chloride Lvl (test code = Chloride Lvl) 109 95-109 [place] 257186-07-30 09:17:00 Test Item Value Reference Range Interpretation Comments CO2 (test code = CO2) 29 24-32 [place] 257186-07-30 09:17:00 Test Item Value Reference Range Interpretation Comments B/C Ratio (test code = B/C Ratio) 27 6-25 [facility]2016-07-30 09:17:00 Test Item Value Reference Range Interpretation Comments A/G Ratio (test code = A/G Ratio) 1.2 0.7-1.6 [place] 257186-07-30 09:17:00 Test Item Value Reference Range Interpretation Comments Globulin (test code = Globulin) 2.3 2.0-4.0 [facility] PasoUwywoofRCNNBCVRXG5006-04-28 09:17:00 Test Item Value Reference Range Interpretation Comments Monocytes (test code = Monocytes) 11.7 2.0-12.0 [facility] PasoMbuzkwbMSWLZYADDB7291-32-77 09:17:00 Test Item Value Reference Range Interpretation Comments Segs-Bands # (test code = Segs-Bands #) 4.9 1.5-8.1 [facility] PasoMktmuexHQTORHECFJ5564-48-54 09:17:00 Test Item Value Reference Range Interpretation Comments Basophils (test code = 0.4 See_Comment [Aut omated message] The Basophils) system which ge nerated this result tra nsmitted reference range : <=1.0. The reference r leatha was not used to int erpret this result as normal/abnormal . [facility] PasoTnnmoroETJTXTNRAM8504-43-94 09:17:00 Test Item Value Reference Range Interpretation Comments Lymphocytes # (test code = Lymphocytes 1.3 1.0-5.5 #) [facility] PasoCjyogsdZTXTJFQDGS6979-87-95 09:17:00 Test Item Value Reference Range Interpretation Comments Macrocyte (test code = 1+ *ABN*(01/15/16 Macrocyte) 4:17 AM) [facility] PasoPxbnxppUJGXFLDSBZ7544-50-96 09:17:00 Test Item Value Reference Range Interpretation Comments Segs (test code = Segs) 67.7 45.0-75.0 [facility] PasoCyqeilyXBTCPGOLCY9652-30-10 09:17:00 Test Item Value Reference Range Interpretation Comments Lymphocytes (test code = Lymphocytes) 17.4 20.0-40.0 [place] 254356-07-30 09:17:00 Test Item Value Reference Range Interpretation Comments Eosinophils (test code = 2.8 See_Comment [A utomated message] The Eosinophils) system which ge nerated this result tra nsmitted reference range : <=4.0. The reference r leatha was not used to int erpret this result as normal/abnormal . [facility] PasoAbfkuuuKSQAWLTDHZ3336-40-99 09:17:00 Test Item Value Reference Range Interpretation Comments Basophils # (test code 0.0 See_Comment [Aut omated message] The = Basophils #) system which generated this result tra nsmitted reference range : <=0.2. The reference r leatha was not used to int erpret this result as normal/abnormal . [facility] [place]KcdpebeAJKJAVYKGE6556-44-67 09:17:00 Test Item Value Reference Range Interpretation Comments Eosinophils # (test code 0.2 See_Comment [A utomated message] The = Eosinophils #) system whic h generated this result tra nsmitted reference range : <=0.5. The reference r leatha was not used to int erpret this result as normal/abnormal . [facility] [place] PasoKigwbcdKXMOBYIDRY3536-35-63 09:17:00 Test Item Value Reference Range Interpretation Comments Monocytes # (test code 0.9 See_Comment [Aut omated message] The = Monocytes #) system which generated this result tra nsmitted reference range : <=0.8. The reference r leatha was not used to int erpret this result as normal/abnormal . [facility] [place] PasoNqodmbuTEZWIIFGXG2620-63-88 09:17:00 Test Item Value Reference Range Interpretation Comments Platelet (test code = Platelet) 149 133-450 [facility] [place] PasoWupnzfoGOLWOYWFXV9963-67-42 09:17:00 Test Item Value Reference Range Interpretation Comments WBC (test code = WBC) 7.3 3.7-10.4 [facility] [place] PasoMvjzyseZJUPFFWSWL1341-38-10 09:17:00 Test Item Value Reference Range Interpretation Comments Hct (test code = Hct) 39.8 36.0-48.0 [facility] [place] PasoNwzvbucDQPXCUPUBV6706-77-99 09:17:00 Test Item Value Reference Range Interpretation Comments Hgb (test code = Hgb) 13.0 12.0-16.0 [facility] [place] PasoGvwlokyIFDQOWKWQM8079-27-24 09:17:00 Test Item Value Reference Range Interpretation Comments RBC (test code = RBC) 4.23 4.20-5.40 [facility] [place] PasoOkqzsjeKBTZFTJYJH3821-43-79 09:17:00 Test Item Value Reference Range Interpretation Comments MCHC (test code = MCHC) 32.8 32.0-36.0 [facility] [place] PasoUrwjsbxLDYAPPIJGE7691-34-91 09:17:00 Test Item Value Reference Range Interpretation Comments MCV (test code = MCV) 94.0 80.0-98.0 [facility] [place] PasoFrxxlknNDMATDURKQ3298-50-57 09:17:00 Test Item Value Reference Range Interpretation Comments MCH (test code = MCH) 30.8 pg 27.0-31.0 [facility] [place] PasoGlinricCJSBMTEWYK0358-93-01 09:17:00 Test Item Value Reference Range Interpretation Comments RDW (test code = RDW) 13.5 11.5-14.5 [facility] [place]KclrzzcRZQPOJTJRP0361-64-79 09:17:00 Test Item Value Reference Range Interpretation Comments MPV (test code = MPV) 9.6 7.4-10.4 [facility]2016-07-30 09:17:00 Test Item Value Reference Range Interpretation Comments eGFR (test code = eGFR) 81 [facility]2016-07-30 09:17:00 Test Item Value Reference Range Interpretation Comments Creatinine Lvl (test code = Creatinine 0.73 0.50-1.40 Lvl) [facility]2016-07-30 09:17:00 Test Item Value Reference Range Interpretation Comments AST (test code = AST) 7 See_Comment [Auto mated message] The system which ge nerated this result transmit juan reference range : <=37. The reference range was not used to interpr et this result as polina l/abnormal. [facility]2016-07-30 09:17:00 Test Item Value Reference Range Interpretation Comments Total Protein (test code = Total 5.0 6.4-8.4 Protein) [facility]2016-07-30 09:17:00 Test Item Value Reference Range Interpretation Comments Alk Phos (test code = Alk Phos) 73 39-136 [facility]2016-07-30 09:17:00 Test Item Value Reference Range Interpretation Comments ALT (test code = ALT) 29 See_Comment [Auto mated message] The system which ge nerated this result transmit juan reference range : <=65. The reference range was not used to interpr et this result as polina l/abnormal. [facility]2016-07-30 09:17:00 Test Item Value Reference Range Interpretation Comments Bili Total (test code = Bili Total) 0.7 0.2-1.3 [facility]2016-07-30 09:17:00 Test Item Value Reference Range Interpretation Comments Albumin Lvl (test code = Albumin Lvl) 2.7 3.5-5.0 [facility]2016-07-30 09:17:00 Test Item Value Reference Range Interpretation Comments AGAP (test code = AGAP) 10.9 10.0-20.0 [facility]2016-07-30 09:17:00 Test Item Value Reference Range Interpretation Comments Calcium Lvl (test code = Calcium Lvl) 10.0 8.5-10.5 [facility]2016-07-30 09:17:00 Test Item Value Reference Range Interpretation Comments Glucose Lvl (test code = Glucose Lvl) 208 70-99 [facility]2016-07-30 09:17:00 Test Item Value Reference Range Interpretation Comments Potassium Lvl (test code = Potassium 3.9 3.5-5.1 Lvl) [facility]2016-07-30 09:17:00 Test Item Value Reference Range Interpretation Comments BUN (test code = BUN) 20 7-22 [facility]2016-07-30 09:17:00 Test Item Value Reference Range Interpretation Comments Sodium Lvl (test code = Sodium Lvl) 145 135-145 [facility]2016-07-30 09:17:00 Test Item Value Reference Range Interpretation Comments Chloride Lvl (test code = Chloride Lvl) 109 95-109 [facility]2016-07-30 09:17:00 Test Item Value Reference Range Interpretation Comments CO2 (test code = CO2) 29 24-32 [facility]2016-07-30 09:17:00 Test Item Value Reference Range Interpretation Comments B/C Ratio (test code = B/C Ratio) 27 6-25 [facility]2016-07-30 09:17:00 Test Item Value Reference Range Interpretation Comments A/G Ratio (test code = A/G Ratio) 1.2 0.7-1.6 [facility]2016-07-30 09:17:00 Test Item Value Reference Range Interpretation Comments Globulin (test code = Globulin) 2.3 2.0-4.0 [facility] [place]SuskrpfRRBPJEIOJB8914-91-97 09:17:00 Test Item Value Reference Range Interpretation Comments Monocytes (test code = Monocytes) 11.7 2.0-12.0 [facility] [place] PasoWeeutopTMANOXQAHU1478-39-86 09:17:00 Test Item Value Reference Range Interpretation Comments Segs-Bands # (test code = Segs-Bands #) 4.9 1.5-8.1 [facility] [place]KbaswrrVWTLTXSZTP2301-13-56 09:17:00 Test Item Value Reference Range Interpretation Comments Basophils (test code = 0.4 See_Comment [Aut omated message] The Basophils) system which ge nerated this result tra nsmitted reference range : <=1.0. The reference r leatha was not used to int erpret this result as normal/abnormal . [facility] [place] PasoCdszukhOLOWDUCIZJ1175-77-28 09:17:00 Test Item Value Reference Range Interpretation Comments Lymphocytes # (test code = Lymphocytes 1.3 1.0-5.5 #) [facility] [place] PasoHmalbnpJBWAKHPQZY5822-99-85 09:17:00 Test Item Value Reference Range Interpretation Comments Macrocyte (test code = 1+ *ABN*(01/15/16 Macrocyte) 4:17 AM) [facility] [place]MvcgavzYMEXZYEBOH7812-85-17 09:17:00 Test Item Value Reference Range Interpretation Comments Segs (test code = Segs) 67.7 45.0-75.0 [facility] [place] PasoOtxvdgzNSCEORNFOH5630-34-70 09:17:00 Test Item Value Reference Range Interpretation Comments Lymphocytes (test code = Lymphocytes) 17.4 20.0-40.0 [facility] [place] PasoSsxaccjEOGCATTJWQ5468-76-74 09:17:00 Test Item Value Reference Range Interpretation Comments Eosinophils (test code = 2.8 See_Comment [A utomated message] The Eosinophils) system which ge nerated this result tra nsmitted reference range : <=4.0. The reference r leatha was not used to int erpret this result as normal/abnormal . [facility] [place] PasoAqogpvxTGUSYCKKOZ6353-85-05 09:17:00 Test Item Value Reference Range Interpretation Comments Basophils # (test code 0.0 See_Comment [Aut omated message] The = Basophils #) system which generated this result tra nsmitted reference range : <=0.2. The reference r leatha was not used to int erpret this result as normal/abnormal . [facility] [place] PasoQkadlhpQKMPBGGJTQ5323-52-68 09:17:00 Test Item Value Reference Range Interpretation Comments Eosinophils # (test code 0.2 See_Comment [A utomated message] The = Eosinophils #) system whic h generated this result tra nsmitted reference range : <=0.5. The reference r leatha was not used to int erpret this result as normal/abnormal . [facility] [place]KsasigmZAQNFIZNEP7907-55-66 09:17:00 Test Item Value Reference Range Interpretation Comments Monocytes # (test code 0.9 See_Comment [Aut omated message] The = Monocytes #) system which generated this result tra nsmitted reference range : <=0.8. The reference r leatha was not used to int erpret this result as normal/abnormal . [facility] [place]PjleailAPHUGYZMNB8495-98-23 09:17:00 Test Item Value Reference Range Interpretation Comments Platelet (test code = Platelet) 149 133-450 [facility] [place] PasoTchvswaFDEJARUHZA5627-94-93 09:17:00 Test Item Value Reference Range Interpretation Comments WBC (test code = WBC) 7.3 3.7-10.4 [facility] [place]FdyugmfLREHBHQCBB0285-53-65 09:17:00 Test Item Value Reference Range Interpretation Comments Hct (test code = Hct) 39.8 36.0-48.0 [facility] [place]FifbqpoGGDLRLMDKW5407-31-41 09:17:00 Test Item Value Reference Range Interpretation Comments Hgb (test code = Hgb) 13.0 12.0-16.0 [facility] [place]JbepqviZQOHPKTXAR0406-94-30 09:17:00 Test Item Value Reference Range Interpretation Comments RBC (test code = RBC) 4.23 4.20-5.40 [facility] [place]VlnqtysDRVAYJAGIB6399-33-73 09:17:00 Test Item Value Reference Range Interpretation Comments MCHC (test code = MCHC) 32.8 32.0-36.0 [facility] [place]RxwsocgSCIACOXVVH8831-60-81 09:17:00 Test Item Value Reference Range Interpretation Comments MCV (test code = MCV) 94.0 80.0-98.0 [facility] [place]RgujvjzAIPGTGBXZI9319-88-64 09:17:00 Test Item Value Reference Range Interpretation Comments MCH (test code = MCH) 30.8 pg 27.0-31.0 [facility] [place]TvzevhnPAZQJAVVRZ9317-93-05 09:17:00 Test Item Value Reference Range Interpretation Comments RDW (test code = RDW) 13.5 11.5-14.5 [facility] [place]NbguvkzYLBBGLROOS8654-09-78 09:17:00 Test Item Value Reference Range Interpretation Comments MPV (test code = MPV) 9.6 7.4-10.4 [facility]2016-07-30 09:17:00 Test Item Value Reference Range Interpretation Comments eGFR (test code = eGFR) 81 [facility]2016-07-30 09:17:00 Test Item Value Reference Range Interpretation Comments Creatinine Lvl (test code = Creatinine 0.73 0.50-1.40 Lvl) [facility]2016-07-30 09:17:00 Test Item Value Reference Range Interpretation Comments AST (test code = AST) 7 See_Comment [Auto mated message] The system which ge nerated this result transmit juan reference range : <=37. The reference range was not used to interpr et this result as polina l/abnormal. [facility]2016-07-30 09:17:00 Test Item Value Reference Range Interpretation Comments Total Protein (test code = Total 5.0 6.4-8.4 Protein) [facility]2016-07-30 09:17:00 Test Item Value Reference Range Interpretation Comments Alk Phos (test code = Alk Phos) 73 39-136 [facility]2016-07-30 09:17:00 Test Item Value Reference Range Interpretation Comments ALT (test code = ALT) 29 See_Comment [Auto mated message] The system which ge nerated this result transmit juan reference range : <=65. The reference range was not used to interpr et this result as polina l/abnormal. [facility]2016-07-30 09:17:00 Test Item Value Reference Range Interpretation Comments Bili Total (test code = Bili Total) 0.7 0.2-1.3 [facility]2016-07-30 09:17:00 Test Item Value Reference Range Interpretation Comments Albumin Lvl (test code = Albumin Lvl) 2.7 3.5-5.0 [facility]2016-07-30 09:17:00 Test Item Value Reference Range Interpretation Comments AGAP (test code = AGAP) 10.9 10.0-20.0 [facility]2016-07-30 09:17:00 Test Item Value Reference Range Interpretation Comments Calcium Lvl (test code = Calcium Lvl) 10.0 8.5-10.5 [facility]2016-07-30 09:17:00 Test Item Value Reference Range Interpretation Comments Glucose Lvl (test code = Glucose Lvl) 208 70-99 [facility]2016-07-30 09:17:00 Test Item Value Reference Range Interpretation Comments Potassium Lvl (test code = Potassium 3.9 3.5-5.1 Lvl) [facility]2016-07-30 09:17:00 Test Item Value Reference Range Interpretation Comments BUN (test code = BUN) 20 7-22 [facility]2016-07-30 09:17:00 Test Item Value Reference Range Interpretation Comments Sodium Lvl (test code = Sodium Lvl) 145 135-145 [facility]2016-07-30 09:17:00 Test Item Value Reference Range Interpretation Comments Chloride Lvl (test code = Chloride Lvl) 109 95-109 [facility]2016-07-30 09:17:00 Test Item Value Reference Range Interpretation Comments CO2 (test code = CO2) 29 24-32 [facility]2016-07-30 09:17:00 Test Item Value Reference Range Interpretation Comments B/C Ratio (test code = B/C Ratio) 27 6-25 [facility]2016-07-30 09:17:00 Test Item Value Reference Range Interpretation Comments A/G Ratio (test code = A/G Ratio) 1.2 0.7-1.6 [facility]2016-07-30 09:17:00 Test Item Value Reference Range Interpretation Comments Globulin (test code = Globulin) 2.3 2.0-4.0 [facility] [place]FqlamfrLBFNDYQOPY1593-32-22 09:17:00 Test Item Value Reference Range Interpretation Comments Monocytes (test code = Monocytes) 11.7 2.0-12.0 [facility] [place]NvlueivCCHHIIYTKH4710-56-63 09:17:00 Test Item Value Reference Range Interpretation Comments Segs-Bands # (test code = Segs-Bands #) 4.9 1.5-8.1 [facility] [place] PasoEtzzgacDGUFDFZBHP7111-17-01 09:17:00 Test Item Value Reference Range Interpretation Comments Basophils (test code = 0.4 See_Comment [Aut omated message] The Basophils) system which ge nerated this result tra nsmitted reference range : <=1.0. The reference r leatha was not used to int erpret this result as normal/abnormal . [facility] [place] PasoLysfoklUEBKYFIEKQ2602-78-47 09:17:00 Test Item Value Reference Range Interpretation Comments Lymphocytes # (test code = Lymphocytes 1.3 1.0-5.5 #) [facility] [place] PasoJrwukifNUXZSLDLVU9781-05-88 09:17:00 Test Item Value Reference Range Interpretation Comments Macrocyte (test code = 1+ *ABN*(01/15/16 Macrocyte) 4:17 AM) [facility] [place]KxdxopvJVADIZZTLF7405-60-68 09:17:00 Test Item Value Reference Range Interpretation Comments Segs (test code = Segs) 67.7 45.0-75.0 [facility] [place]KujjvdbNZCTESFVCA2011-69-43 09:17:00 Test Item Value Reference Range Interpretation Comments Lymphocytes (test code = Lymphocytes) 17.4 20.0-40.0 [facility] [place] PasoAqudsjiFNUIYQUUOE4427-14-39 09:17:00 Test Item Value Reference Range Interpretation Comments Eosinophils (test code = 2.8 See_Comment [A utomated message] The Eosinophils) system which ge nerated this result tra nsmitted reference range : <=4.0. The reference r leatha was not used to int erpret this result as normal/abnormal . [facility] [place] PasoAaeipexGWCWCDGQJB8793-19-16 09:17:00 Test Item Value Reference Range Interpretation Comments Basophils # (test code 0.0 See_Comment [Aut omated message] The = Basophils #) system which generated this result tra nsmitted reference range : <=0.2. The reference r leatha was not used to int erpret this result as normal/abnormal . [facility] [place] PasoSosryynKWZUAQFCNM8697-77-36 09:17:00 Test Item Value Reference Range Interpretation Comments Eosinophils # (test code 0.2 See_Comment [A utomated message] The = Eosinophils #) system whic h generated this result tra nsmitted reference range : <=0.5. The reference r leatha was not used to int erpret this result as normal/abnormal . [facility] [place] PasoLdvmsbaGQCMLZBJIC2334-93-32 09:17:00 Test Item Value Reference Range Interpretation Comments Monocytes # (test code 0.9 See_Comment [Aut omated message] The = Monocytes #) system which generated this result tra nsmitted reference range : <=0.8. The reference r leatha was not used to int erpret this result as normal/abnormal . [facility] [place] PasoJpxpejiXFNLZJUFFB5577-33-85 09:17:00 Test Item Value Reference Range Interpretation Comments Platelet (test code = Platelet) 149 133-450 [facility] [place] PasoXuxjsfkUNBEIKGUQN5684-80-51 09:17:00 Test Item Value Reference Range Interpretation Comments WBC (test code = WBC) 7.3 3.7-10.4 [facility] [place] PasoYyrpxusUZISNBXHFB2381-88-04 09:17:00 Test Item Value Reference Range Interpretation Comments Hct (test code = Hct) 39.8 36.0-48.0 [facility] [place] PasoHcdjlebSGSVTQKXPO8814-27-15 09:17:00 Test Item Value Reference Range Interpretation Comments Hgb (test code = Hgb) 13.0 12.0-16.0 [facility] [place]IlkqrbkJKHCBXEEFH6491-32-53 09:17:00 Test Item Value Reference Range Interpretation Comments RBC (test code = RBC) 4.23 4.20-5.40 [facility] [place] PasoUnavrssSGWTPJJTHY0004-01-19 09:17:00 Test Item Value Reference Range Interpretation Comments MCHC (test code = MCHC) 32.8 32.0-36.0 [facility] [place] PasoFhxmvozLBKMOCWXHZ5052-29-31 09:17:00 Test Item Value Reference Range Interpretation Comments MCV (test code = MCV) 94.0 80.0-98.0 [facility] [place]KfrecdjHFKAYHPGMW8693-13-58 09:17:00 Test Item Value Reference Range Interpretation Comments MCH (test code = MCH) 30.8 pg 27.0-31.0 [facility] [place] PasoTbkvnzfBPFQSDNFFQ8118-39-42 09:17:00 Test Item Value Reference Range Interpretation Comments RDW (test code = RDW) 13.5 11.5-14.5 [facility] [place] PasoUauvasqRLKVNAGKJF1742-90-50 09:17:00 Test Item Value Reference Range Interpretation Comments MPV (test code = MPV) 9.6 7.4-10.4 [facility]2016-07-30 09:17:00 Test Item Value Reference Range Interpretation Comments eGFR (test code = eGFR) 81 [facility]2016-07-30 09:17:00 Test Item Value Reference Range Interpretation Comments Creatinine Lvl (test code = Creatinine 0.73 0.50-1.40 Lvl) [facility]2016-07-30 09:17:00 Test Item Value Reference Range Interpretation Comments AST (test code = AST) 7 See_Comment [Auto mated message] The system which ge nerated this result transmit juan reference range : <=37. The reference range was not used to interpr et this result as polina l/abnormal. [facility]2016-07-30 09:17:00 Test Item Value Reference Range Interpretation Comments Total Protein (test code = Total 5.0 6.4-8.4 Protein) [facility]2016-07-30 09:17:00 Test Item Value Reference Range Interpretation Comments Alk Phos (test code = Alk Phos) 73 39-136 [facility]2016-07-30 09:17:00 Test Item Value Reference Range Interpretation Comments ALT (test code = ALT) 29 See_Comment [Auto mated message] The system which ge nerated this result transmit juan reference range : <=65. The reference range was not used to interpr et this result as polina l/abnormal. [facility]2016-07-30 09:17:00 Test Item Value Reference Range Interpretation Comments Bili Total (test code = Bili Total) 0.7 0.2-1.3 [facility]2016-07-30 09:17:00 Test Item Value Reference Range Interpretation Comments Albumin Lvl (test code = Albumin Lvl) 2.7 3.5-5.0 [facility]2016-07-30 09:17:00 Test Item Value Reference Range Interpretation Comments AGAP (test code = AGAP) 10.9 10.0-20.0 [facility]2016-07-30 09:17:00 Test Item Value Reference Range Interpretation Comments Calcium Lvl (test code = Calcium Lvl) 10.0 8.5-10.5 [facility]2016-07-30 09:17:00 Test Item Value Reference Range Interpretation Comments Glucose Lvl (test code = Glucose Lvl) 208 70-99 [facility]2016-07-30 09:17:00 Test Item Value Reference Range Interpretation Comments Potassium Lvl (test code = Potassium 3.9 3.5-5.1 Lvl) [facility]2016-07-30 09:17:00 Test Item Value Reference Range Interpretation Comments BUN (test code = BUN) 20 7-22 [facility]2016-07-30 09:17:00 Test Item Value Reference Range Interpretation Comments Sodium Lvl (test code = Sodium Lvl) 145 135-145 [facility]2016-07-30 09:17:00 Test Item Value Reference Range Interpretation Comments Chloride Lvl (test code = Chloride Lvl) 109 95-109 [facility]2016-07-30 09:17:00 Test Item Value Reference Range Interpretation Comments CO2 (test code = CO2) 29 24-32 [facility]2016-07-30 09:17:00 Test Item Value Reference Range Interpretation Comments B/C Ratio (test code = B/C Ratio) 27 6-25 [facility]2016-07-30 09:17:00 Test Item Value Reference Range Interpretation Comments A/G Ratio (test code = A/G Ratio) 1.2 0.7-1.6 [facility]2016-07-30 09:17:00 Test Item Value Reference Range Interpretation Comments Globulin (test code = Globulin) 2.3 2.0-4.0 [facility] [place]HgvtobdXUAZOTTZWZ6534-92-59 09:17:00 Test Item Value Reference Range Interpretation Comments Monocytes (test code = Monocytes) 11.7 2.0-12.0 [facility] [place] PasoRprjygeXGNNHTTXEQ7530-20-88 09:17:00 Test Item Value Reference Range Interpretation Comments Segs-Bands # (test code = Segs-Bands #) 4.9 1.5-8.1 [facility] [place] PasoMpwfkhkNHPPJBFQFQ6461-89-78 09:17:00 Test Item Value Reference Range Interpretation Comments Basophils (test code = 0.4 See_Comment [Aut omated message] The Basophils) system which ge nerated this result tra nsmitted reference range : <=1.0. The reference r leatha was not used to int erpret this result as normal/abnormal . [facility] [place]ItpbhxcQWDLMQMYKV4501-06-41 09:17:00 Test Item Value Reference Range Interpretation Comments Lymphocytes # (test code = Lymphocytes 1.3 1.0-5.5 #) [facility] [place] PasoRofjtwrRZSDHMKVNI2290-63-86 09:17:00 Test Item Value Reference Range Interpretation Comments Macrocyte (test code = 1+ *ABN*(01/15/16 Macrocyte) 4:17 AM) [facility] [place] PasoBxagpchGGVFIUZIAW1921-07-07 09:17:00 Test Item Value Reference Range Interpretation Comments Segs (test code = Segs) 67.7 45.0-75.0 [facility] [place] PasoQnnhbndEPHUSRNYGM8094-00-44 09:17:00 Test Item Value Reference Range Interpretation Comments Lymphocytes (test code = Lymphocytes) 17.4 20.0-40.0 [facility] [place]IprnxneZNIGXNYCUN2494-57-03 09:17:00 Test Item Value Reference Range Interpretation Comments Eosinophils (test code = 2.8 See_Comment [A utomated message] The Eosinophils) system which ge nerated this result tra nsmitted reference range : <=4.0. The reference r leatha was not used to int erpret this result as normal/abnormal . [facility] [place] PasoZjqgodkSOQJWEEBGW7517-86-20 09:17:00 Test Item Value Reference Range Interpretation Comments Basophils # (test code 0.0 See_Comment [Aut omated message] The = Basophils #) system which generated this result tra nsmitted reference range : <=0.2. The reference r leatha was not used to int erpret this result as normal/abnormal . [facility] [place] PasoMuvtcksGTQCOIMIRF7457-97-12 09:17:00 Test Item Value Reference Range Interpretation Comments Eosinophils # (test code 0.2 See_Comment [A utomated message] The = Eosinophils #) system whic h generated this result tra nsmitted reference range : <=0.5. The reference r leatha was not used to int erpret this result as normal/abnormal . [facility] [place] PasoXsarwncWVMRXAEDBK0487-49-17 09:17:00 Test Item Value Reference Range Interpretation Comments Monocytes # (test code 0.9 See_Comment [Aut omated message] The = Monocytes #) system which generated this result tra nsmitted reference range : <=0.8. The reference r leatha was not used to int erpret this result as normal/abnormal . [facility]SnvgpjqRNQQFEAAQD7730-95-68 09:17:00 Test Item Value Reference Range Interpretation Comments Platelet (test code = Platelet) 149 133-450 [facility] PasoZkjiwwrOJJWNXOPTL9684-67-93 09:17:00 Test Item Value Reference Range Interpretation Comments WBC (test code = WBC) 7.3 3.7-10.4 [facility] PasoCbjetalQJBFCCVZRC5223-67-91 09:17:00 Test Item Value Reference Range Interpretation Comments Hct (test code = Hct) 39.8 36.0-48.0 [facility] PasoDkrtrtrPWYHJXWDRL9565-85-53 09:17:00 Test Item Value Reference Range Interpretation Comments Hgb (test code = Hgb) 13.0 12.0-16.0 [facility] PasoRmwnrneZZBFWZULYQ1020-44-22 09:17:00 Test Item Value Reference Range Interpretation Comments RBC (test code = RBC) 4.23 4.20-5.40 [facility] PasoQzamcpzYZPEUFFQVH9084-77-77 09:17:00 Test Item Value Reference Range Interpretation Comments MCHC (test code = MCHC) 32.8 32.0-36.0 [facility] PasoNhbsdnlRSJNJRHXSF2593-33-12 09:17:00 Test Item Value Reference Range Interpretation Comments MCV (test code = MCV) 94.0 80.0-98.0 [facility] PasoLoabcjpWEETCFRROC4557-81-96 09:17:00 Test Item Value Reference Range Interpretation Comments MCH (test code = MCH) 30.8 pg 27.0-31.0 [facility] PasoSmzjdvcWJORHJLUTO4073-81-65 09:17:00 Test Item Value Reference Range Interpretation Comments RDW (test code = RDW) 13.5 11.5-14.5 [place] 254356-07-30 09:17:00 Test Item Value Reference Range Interpretation Comments MPV (test code = MPV) 9.6 7.4-10.4 [place] 257186-07-30 09:17:00 Test Item Value Reference Range Interpretation Comments eGFR (test code = eGFR) 81 [facility]2016-07-30 09:17:00 Test Item Value Reference Range Interpretation Comments Creatinine Lvl (test code = Creatinine 0.73 0.50-1.40 Lvl) [facility]2016-07-30 09:17:00 Test Item Value Reference Range Interpretation Comments AST (test code = AST) 7 See_Comment [Auto mated message] The system which ge nerated this result transmit juan reference range : <=37. The reference range was not used to interpr et this result as polina l/abnormal. [facility]2016-07-30 09:17:00 Test Item Value Reference Range Interpretation Comments Total Protein (test code = Total 5.0 6.4-8.4 Protein) [facility]2016-07-30 09:17:00 Test Item Value Reference Range Interpretation Comments Alk Phos (test code = Alk Phos) 73 39-136 [facility]2016-07-30 09:17:00 Test Item Value Reference Range Interpretation Comments ALT (test code = ALT) 29 See_Comment [Auto mated message] The system which ge nerated this result transmit jaun reference range : <=65. The reference range was not used to interpr et this result as polina l/abnormal. [facility]2016-07-30 09:17:00 Test Item Value Reference Range Interpretation Comments Bili Total (test code = Bili Total) 0.7 0.2-1.3 [facility]2016-07-30 09:17:00 Test Item Value Reference Range Interpretation Comments Albumin Lvl (test code = Albumin Lvl) 2.7 3.5-5.0 [facility]2016-07-30 09:17:00 Test Item Value Reference Range Interpretation Comments AGAP (test code = AGAP) 10.9 10.0-20.0 [facility]2016-07-30 09:17:00 Test Item Value Reference Range Interpretation Comments Calcium Lvl (test code = Calcium Lvl) 10.0 8.5-10.5 [facility]2016-07-30 09:17:00 Test Item Value Reference Range Interpretation Comments Glucose Lvl (test code = Glucose Lvl) 208 70-99 [facility]2016-07-30 09:17:00 Test Item Value Reference Range Interpretation Comments Potassium Lvl (test code = Potassium 3.9 3.5-5.1 Lvl) [facility]2016-07-30 09:17:00 Test Item Value Reference Range Interpretation Comments BUN (test code = BUN) 20 7-22 [facility]2016-07-30 09:17:00 Test Item Value Reference Range Interpretation Comments Sodium Lvl (test code = Sodium Lvl) 145 135-145 [facility]2016-07-30 09:17:00 Test Item Value Reference Range Interpretation Comments Chloride Lvl (test code = Chloride Lvl) 109 95-109 [facility]2016-07-30 09:17:00 Test Item Value Reference Range Interpretation Comments CO2 (test code = CO2) 29 24-32 [facility]2016-07-30 09:17:00 Test Item Value Reference Range Interpretation Comments B/C Ratio (test code = B/C Ratio) 27 6-25 [facility]2016-07-30 09:17:00 Test Item Value Reference Range Interpretation Comments A/G Ratio (test code = A/G Ratio) 1.2 0.7-1.6 [facility]2016-07-30 09:17:00 Test Item Value Reference Range Interpretation Comments eGFR (test code = eGFR) 81 [facility]2016-07-30 09:17:00 Test Item Value Reference Range Interpretation Comments Creatinine Lvl (test code = Creatinine 0.73 0.50-1.40 Lvl) [facility]2016-07-30 09:17:00 Test Item Value Reference Range Interpretation Comments AST (test code = AST) 7 See_Comment [Auto mated message] The system which ge nerated this result transmit juan reference range : <=37. The reference range was not used to interpr et this result as polina l/abnormal. [facility]2016-07-30 09:17:00 Test Item Value Reference Range Interpretation Comments Globulin (test code = Globulin) 2.3 2.0-4.0 [facility]2016-07-30 09:17:00 Test Item Value Reference Range Interpretation Comments Total Protein (test code = Total 5.0 6.4-8.4 Protein) [facility]2016-07-30 09:17:00 Test Item Value Reference Range Interpretation Comments Alk Phos (test code = Alk Phos) 73 39-136 [facility]2016-07-30 09:17:00 Test Item Value Reference Range Interpretation Comments ALT (test code = ALT) 29 See_Comment [Auto mated message] The system which ge nerated this result transmit juan reference range : <=65. The reference range was not used to interpr et this result as polina l/abnormal. [facility]2016-07-30 09:17:00 Test Item Value Reference Range Interpretation Comments Bili Total (test code = Bili Total) 0.7 0.2-1.3 [facility]2016-07-30 09:17:00 Test Item Value Reference Range Interpretation Comments Albumin Lvl (test code = Albumin Lvl) 2.7 3.5-5.0 [facility]2016-07-30 09:17:00 Test Item Value Reference Range Interpretation Comments AGAP (test code = AGAP) 10.9 10.0-20.0 [facility]2016-07-30 09:17:00 Test Item Value Reference Range Interpretation Comments Calcium Lvl (test code = Calcium Lvl) 10.0 8.5-10.5 [facility]2016-07-30 09:17:00 Test Item Value Reference Range Interpretation Comments Glucose Lvl (test code = Glucose Lvl) 208 70-99 [facility]2016-07-30 09:17:00 Test Item Value Reference Range Interpretation Comments Potassium Lvl (test code = Potassium 3.9 3.5-5.1 Lvl) [facility]2016-07-30 09:17:00 Test Item Value Reference Range Interpretation Comments BUN (test code = BUN) 20 7-22 [facility] PasoTwixncsPFXIWXCFJX9709-05-64 09:17:00 Test Item Value Reference Range Interpretation Comments Monocytes (test code = Monocytes) 11.7 2.0-12.0 [facility]2016-07-30 09:17:00 Test Item Value Reference Range Interpretation Comments Sodium Lvl (test code = Sodium Lvl) 145 135-145 [facility]2016-07-30 09:17:00 Test Item Value Reference Range Interpretation Comments Chloride Lvl (test code = Chloride Lvl) 109 95-109 [facility]2016-07-30 09:17:00 Test Item Value Reference Range Interpretation Comments CO2 (test code = CO2) 29 24-32 [facility]2016-07-30 09:17:00 Test Item Value Reference Range Interpretation Comments B/C Ratio (test code = B/C Ratio) 27 6-25 [facility]2016-07-30 09:17:00 Test Item Value Reference Range Interpretation Comments A/G Ratio (test code = A/G Ratio) 1.2 0.7-1.6 [facility]2016-07-30 09:17:00 Test Item Value Reference Range Interpretation Comments Globulin (test code = Globulin) 2.3 2.0-4.0 [facility]oLqebgzzAJKBUIYPAX7269-40-14 09:17:00 Test Item Value Reference Range Interpretation Comments Monocytes (test code = Monocytes) 11.7 2.0-12.0 [facility] PasoOiqbymsAIPVRGMHVA9310-91-39 09:17:00 Test Item Value Reference Range Interpretation Comments Segs-Bands # (test code = Segs-Bands #) 4.9 1.5-8.1 [facility] PasoTvrdpqqLQEITSUMJY8383-95-82 09:17:00 Test Item Value Reference Range Interpretation Comments Basophils (test code = 0.4 See_Comment [Aut omated message] The Basophils) system which ge nerated this result tra nsmitted reference range : <=1.0. The reference r leatha was not used to int erpret this result as normal/abnormal . [place] 254356-07-30 09:17:00 Test Item Value Reference Range Interpretation Comments Lymphocytes # (test code = Lymphocytes 1.3 1.0-5.5 #) [facility] PasoPlkmktoOEKKIZXDDO2027-62-78 09:17:00 Test Item Value Reference Range Interpretation Comments Segs-Bands # (test code = Segs-Bands #) 4.9 1.5-8.1 [facility] PasoEsytduhPIEIPUWAQR2801-95-21 09:17:00 Test Item Value Reference Range Interpretation Comments Macrocyte (test code = 1+ *ABN*(01/15/16 Macrocyte) 4:17 AM) [facility] PasoCyhfwyxWOJMZAJWSB5729-95-58 09:17:00 Test Item Value Reference Range Interpretation Comments Segs (test code = Segs) 67.7 45.0-75.0 [facility] PasoFyrrmkkYWSLSSKAPJ5814-32-27 09:17:00 Test Item Value Reference Range Interpretation Comments Lymphocytes (test code = Lymphocytes) 17.4 20.0-40.0 [facility] PasoDfqfpgyIYRPSXYCAE3901-98-55 09:17:00 Test Item Value Reference Range Interpretation Comments Eosinophils (test code = 2.8 See_Comment [A utomated message] The Eosinophils) system which ge nerated this result tra nsmitted reference range : <=4.0. The reference r leatha was not used to int erpret this result as normal/abnormal . [facility] PasoDrqbdnzZASCXBGZTT0994-15-14 09:17:00 Test Item Value Reference Range Interpretation Comments Basophils # (test code 0.0 See_Comment [Aut omated message] The = Basophils #) system which generated this result tra nsmitted reference range : <=0.2. The reference r leatha was not used to int erpret this result as normal/abnormal . [facility] PasoBrzttdaVDARTKCWKO3020-83-34 09:17:00 Test Item Value Reference Range Interpretation Comments Eosinophils # (test code 0.2 See_Comment [A utomated message] The = Eosinophils #) system whic h generated this result tra nsmitted reference range : <=0.5. The reference r leatha was not used to int erpret this result as normal/abnormal . [facility] PasoZfhkhsnFISTAHGBCG8214-39-94 09:17:00 Test Item Value Reference Range Interpretation Comments Monocytes # (test code 0.9 See_Comment [Aut omated message] The = Monocytes #) system which generated this result tra nsmitted reference range : <=0.8. The reference r leatha was not used to int erpret this result as normal/abnormal . [facility] PasoMnkqkocOZTHMOJNYH7503-17-37 09:17:00 Test Item Value Reference Range Interpretation Comments Platelet (test code = Platelet) 149 133-450 [facility] PasoOvjbanaUKYELKNYVX2352-65-35 09:17:00 Test Item Value Reference Range Interpretation Comments WBC (test code = WBC) 7.3 3.7-10.4 [facility] PasoVjxnztoXGAGYSRACT5117-40-03 09:17:00 Test Item Value Reference Range Interpretation Comments Hct (test code = Hct) 39.8 36.0-48.0 [facility] PasoXleuebiVLJMUWKRXD4236-25-92 09:17:00 Test Item Value Reference Range Interpretation Comments Basophils (test code = 0.4 See_Comment [Aut omated message] The Basophils) system which ge nerated this result tra nsmitted reference range : <=1.0. The reference r leatha was not used to int erpret this result as normal/abnormal . [facility] PasoMkpsgcpSCGFTENREB1290-73-07 09:17:00 Test Item Value Reference Range Interpretation Comments Hgb (test code = Hgb) 13.0 12.0-16.0 [facility] PasoRaevxtnDSYABEEKKP5228-19-75 09:17:00 Test Item Value Reference Range Interpretation Comments RBC (test code = RBC) 4.23 4.20-5.40 [facility] PasoMbqncgfBRIEATLGQJ9373-10-45 09:17:00 Test Item Value Reference Range Interpretation Comments MCHC (test code = MCHC) 32.8 32.0-36.0 [facility] PasoRjezomsDXLKIRHIBP2368-44-50 09:17:00 Test Item Value Reference Range Interpretation Comments MCV (test code = MCV) 94.0 80.0-98.0 [facility] PasoKhkesvrRCQZGEUITA6901-08-45 09:17:00 Test Item Value Reference Range Interpretation Comments MCH (test code = MCH) 30.8 pg 27.0-31.0 [facility] PasoNpwnqgnVDYQLUOARQ1836-10-39 09:17:00 Test Item Value Reference Range Interpretation Comments RDW (test code = RDW) 13.5 11.5-14.5 [facility] PasoOldlungTUBPVYXTDK7973-99-51 09:17:00 Test Item Value Reference Range Interpretation Comments MPV (test code = MPV) 9.6 7.4-10.4 [facility] PasoArrubmrGGQNRMNKIS1064-05-26 09:17:00 Test Item Value Reference Range Interpretation Comments Lymphocytes # (test code = Lymphocytes 1.3 1.0-5.5 #) [facility] PasoAxmraxaIZTTZHRMUP6133-42-96 09:17:00 Test Item Value Reference Range Interpretation Comments Macrocyte (test code = 1+ *ABN*(01/15/16 Macrocyte) 4:17 AM) [facility] PasoMvwaikkJCWFZXPFZK4631-00-13 09:17:00 Test Item Value Reference Range Interpretation Comments Segs (test code = Segs) 67.7 45.0-75.0 [facility] PasoNxnrddkNGRSLLJHVR5429-53-59 09:17:00 Test Item Value Reference Range Interpretation Comments Lymphocytes (test code = Lymphocytes) 17.4 20.0-40.0 [facility] PasoFyhoswxNYTJYMHIIZ2360-21-51 09:17:00 Test Item Value Reference Range Interpretation Comments Eosinophils (test code = 2.8 See_Comment [A utomated message] The Eosinophils) system which ge nerated this result tra nsmitted reference range : <=4.0. The reference r leatha was not used to int erpret this result as normal/abnormal . [facility] PasoUycxxxbWRDTAFWBHL4986-59-77 09:17:00 Test Item Value Reference Range Interpretation Comments Basophils # (test code 0.0 See_Comment [Aut omated message] The = Basophils #) system which generated this result tra nsmitted reference range : <=0.2. The reference r leatha was not used to int erpret this result as normal/abnormal . [facility] PasoIxjztlrPJRTINAWZV0623-15-49 09:17:00 Test Item Value Reference Range Interpretation Comments Eosinophils # (test code 0.2 See_Comment [A utomated message] The = Eosinophils #) system whic h generated this result tra nsmitted reference range : <=0.5. The reference r leatha was not used to int erpret this result as normal/abnormal . [facility] PasoXsnslvhFEJQXTPRFO8427-36-99 09:17:00 Test Item Value Reference Range Interpretation Comments Monocytes # (test code 0.9 See_Comment [Aut omated message] The = Monocytes #) system which generated this result tra nsmitted reference range : <=0.8. The reference r leatha was not used to int erpret this result as normal/abnormal . [facility] PasoLhinmqvBDHTUKGKTD1787-09-86 09:17:00 Test Item Value Reference Range Interpretation Comments Platelet (test code = Platelet) 149 133-450 [facility] PasoBguqlkcXREJLWNOQN6129-76-75 09:17:00 Test Item Value Reference Range Interpretation Comments WBC (test code = WBC) 7.3 3.7-10.4 [facility] PasoTmmsikfBUBTUWZTXZ4019-90-23 09:17:00 Test Item Value Reference Range Interpretation Comments Hct (test code = Hct) 39.8 36.0-48.0 [facility] PasoFkwavgbRLDVVVLBAA3268-89-78 09:17:00 Test Item Value Reference Range Interpretation Comments Hgb (test code = Hgb) 13.0 12.0-16.0 [facility] PasoPyxyztyRFEDQQZGOX1752-47-28 09:17:00 Test Item Value Reference Range Interpretation Comments RBC (test code = RBC) 4.23 4.20-5.40 [facility] PasoBzrrgsdVUFSTNJNDA3231-41-51 09:17:00 Test Item Value Reference Range Interpretation Comments MCHC (test code = MCHC) 32.8 32.0-36.0 [facility] PasoAqmtwvaGGJBCAFNKS3286-88-18 09:17:00 Test Item Value Reference Range Interpretation Comments MCV (test code = MCV) 94.0 80.0-98.0 [facility] PasoWlvhzklGMAUXNBISC7831-32-57 09:17:00 Test Item Value Reference Range Interpretation Comments MCH (test code = MCH) 30.8 pg 27.0-31.0 [facility] PasoBplttqiKUFJUGSRRG7263-37-33 09:17:00 Test Item Value Reference Range Interpretation Comments RDW (test code = RDW) 13.5 11.5-14.5 [facility] PasoAggyqijPFNSUMCNTE6433-52-74 09:17:00 Test Item Value Reference Range Interpretation Comments MPV (test code = MPV) 9.6 7.4-10.4 [facility]2016-07-30 09:17:00 Test Item Value Reference Range Interpretation Comments eGFR (test code = eGFR) 81 [facility] TSIHV4097-94-87 09:17:00 Test Item Value Reference Range Interpretation Comments Creatinine Lvl (test code = Creatinine 0.73 0.50-1.40 Lvl) [facility]2016-07-30 09:17:00 Test Item Value Reference Range Interpretation Comments AST (test code = AST) 7 See_Comment [Auto mated message] The system which ge nerated this result transmit juan reference range : <=37. The reference range was not used to interpr et this result as polina l/abnormal. [facility]2016-07-30 09:17:00 Test Item Value Reference Range Interpretation Comments Total Protein (test code = Total 5.0 6.4-8.4 Protein) [facility]2016-07-30 09:17:00 Test Item Value Reference Range Interpretation Comments Alk Phos (test code = Alk Phos) 73 39-136 [facility]2016-07-30 09:17:00 Test Item Value Reference Range Interpretation Comments ALT (test code = ALT) 29 See_Comment [Auto mated message] The system which ge nerated this result transmit juan reference range : <=65. The reference range was not used to interpr et this result as polina l/abnormal. [facility]2016-07-30 09:17:00 Test Item Value Reference Range Interpretation Comments Bili Total (test code = Bili Total) 0.7 0.2-1.3 [facility]2016-07-30 09:17:00 Test Item Value Reference Range Interpretation Comments Albumin Lvl (test code = Albumin Lvl) 2.7 3.5-5.0 [facility]2016-07-30 09:17:00 Test Item Value Reference Range Interpretation Comments AGAP (test code = AGAP) 10.9 10.0-20.0 [facility]2016-07-30 09:17:00 Test Item Value Reference Range Interpretation Comments Calcium Lvl (test code = Calcium Lvl) 10.0 8.5-10.5 [facility]2016-07-30 09:17:00 Test Item Value Reference Range Interpretation Comments Glucose Lvl (test code = Glucose Lvl) 208 70-99 [facility]2016-07-30 09:17:00 Test Item Value Reference Range Interpretation Comments Potassium Lvl (test code = Potassium 3.9 3.5-5.1 Lvl) [facility]2016-07-30 09:17:00 Test Item Value Reference Range Interpretation Comments BUN (test code = BUN) 20 7-22 [facility]2016-07-30 09:17:00 Test Item Value Reference Range Interpretation Comments Sodium Lvl (test code = Sodium Lvl) 145 135-145 [place] 257186-07-30 09:17:00 Test Item Value Reference Range Interpretation Comments Chloride Lvl (test code = Chloride Lvl) 109 95-109 [facility]2016-07-30 09:17:00 Test Item Value Reference Range Interpretation Comments CO2 (test code = CO2) 29 24-32 [facility]2016-07-30 09:17:00 Test Item Value Reference Range Interpretation Comments B/C Ratio (test code = B/C Ratio) 27 6-25 [facility]2016-07-30 09:17:00 Test Item Value Reference Range Interpretation Comments A/G Ratio (test code = A/G Ratio) 1.2 0.7-1.6 [place] 257186-07-30 09:17:00 Test Item Value Reference Range Interpretation Comments Globulin (test code = Globulin) 2.3 2.0-4.0 [facility] PasoVjrnddkYCALACPMDD4276-93-20 09:17:00 Test Item Value Reference Range Interpretation Comments Monocytes (test code = Monocytes) 11.7 2.0-12.0 [facility] PasoSqgnptoZNWOCECDIN8220-49-19 09:17:00 Test Item Value Reference Range Interpretation Comments Segs-Bands # (test code = Segs-Bands #) 4.9 1.5-8.1 [facility] PasoTasxigiEREAYKPHVQ8118-14-49 09:17:00 Test Item Value Reference Range Interpretation Comments Basophils (test code = 0.4 See_Comment [Aut omated message] The Basophils) system which ge nerated this result tra nsmitted reference range : <=1.0. The reference r leatha was not used to int erpret this result as normal/abnormal . [facility] PasoChpjsvvSNTBHXQECY1499-46-29 09:17:00 Test Item Value Reference Range Interpretation Comments Lymphocytes # (test code = Lymphocytes 1.3 1.0-5.5 #) [facility] PasoIoiossoQMWBGISZGC0298-43-39 09:17:00 Test Item Value Reference Range Interpretation Comments Macrocyte (test code = 1+ *ABN*(01/15/16 Macrocyte) 4:17 AM) [facility] PasoConmsctAEQQUSFVQF4969-31-91 09:17:00 Test Item Value Reference Range Interpretation Comments Segs (test code = Segs) 67.7 45.0-75.0 [facility] PasoElxxxmaUEZAQJJKNN3121-22-49 09:17:00 Test Item Value Reference Range Interpretation Comments Lymphocytes (test code = Lymphocytes) 17.4 20.0-40.0 [facility] PasoCcpvtxhOZELCDGPZJ3023-92-50 09:17:00 Test Item Value Reference Range Interpretation Comments Eosinophils (test code = 2.8 See_Comment [A utomated message] The Eosinophils) system which ge nerated this result tra nsmitted reference range : <=4.0. The reference r leatha was not used to int erpret this result as normal/abnormal . [facility] PasoLfbqmdtVFLSMKBZGU2632-92-49 09:17:00 Test Item Value Reference Range Interpretation Comments Basophils # (test code 0.0 See_Comment [Aut omated message] The = Basophils #) system which generated this result tra nsmitted reference range : <=0.2. The reference r leatha was not used to int erpret this result as normal/abnormal . [facility] PasoMzjlfkvJFOOMUFIHC5298-98-83 09:17:00 Test Item Value Reference Range Interpretation Comments Eosinophils # (test code 0.2 See_Comment [A utomated message] The = Eosinophils #) system whic h generated this result tra nsmitted reference range : <=0.5. The reference r leatha was not used to int erpret this result as normal/abnormal . [facility] PasoQucmeiwPASFQOIRHU8733-42-02 09:17:00 Test Item Value Reference Range Interpretation Comments Monocytes # (test code 0.9 See_Comment [Aut omated message] The = Monocytes #) system which generated this result tra nsmitted reference range : <=0.8. The reference r leatha was not used to int erpret this result as normal/abnormal . [facility] PasoOwgjdidAAEXROUESQ5601-91-46 09:17:00 Test Item Value Reference Range Interpretation Comments Platelet (test code = Platelet) 149 133-450 [facility] PasoRsytrkuOMOGXVJRJL3801-17-91 09:17:00 Test Item Value Reference Range Interpretation Comments WBC (test code = WBC) 7.3 3.7-10.4 [facility] PasoVzbqzrtXXSMHZOTDN8148-10-39 09:17:00 Test Item Value Reference Range Interpretation Comments Hct (test code = Hct) 39.8 36.0-48.0 [facility] PasoGiqzzhdBUMQAAQJGO5526-13-90 09:17:00 Test Item Value Reference Range Interpretation Comments Hgb (test code = Hgb) 13.0 12.0-16.0 [facility]oSdugyaiTMUQSGOIPA1540-63-38 09:17:00 Test Item Value Reference Range Interpretation Comments RBC (test code = RBC) 4.23 4.20-5.40 [facility] PasoJskwiwiTYVZIKPKSQ7120-91-70 09:17:00 Test Item Value Reference Range Interpretation Comments MCHC (test code = MCHC) 32.8 32.0-36.0 [facility] PasoCetyrjkKBFAJLPSKF4268-41-18 09:17:00 Test Item Value Reference Range Interpretation Comments MCV (test code = MCV) 94.0 80.0-98.0 [facility] PasoEjdcvswURZXKSYAEL2150-92-81 09:17:00 Test Item Value Reference Range Interpretation Comments MCH (test code = MCH) 30.8 pg 27.0-31.0 [facility] PasoDxfcszjRJKZXPPETW1628-04-05 09:17:00 Test Item Value Reference Range Interpretation Comments RDW (test code = RDW) 13.5 11.5-14.5 [facility] PasoRjcfdutKONMXGVDTX1655-65-46 09:17:00 Test Item Value Reference Range Interpretation Comments MPV (test code = MPV) 9.6 7.4-10.4 [facility]2016-07-30 09:17:00 Test Item Value Reference Range Interpretation Comments eGFR (test code = eGFR) 81 [facility]2016-07-30 09:17:00 Test Item Value Reference Range Interpretation Comments Creatinine Lvl (test code = Creatinine 0.73 0.50-1.40 Lvl) [facility]2016-07-30 09:17:00 Test Item Value Reference Range Interpretation Comments AST (test code = AST) 7 <=37 [facility]2016-07-30 09:17:00 Test Item Value Reference Range Interpretation Comments Total Protein (test code = Total 5.0 6.4-8.4 Protein) [facility]2016-07-30 09:17:00 Test Item Value Reference Range Interpretation Comments Alk Phos (test code = Alk Phos) 73 39-136 [facility]2016-07-30 09:17:00 Test Item Value Reference Range Interpretation Comments ALT (test code = ALT) 29 <=65 [facility]2016-07-30 09:17:00 Test Item Value Reference Range Interpretation Comments Bili Total (test code = Bili Total) 0.7 0.2-1.3 [facility]2016-07-30 09:17:00 Test Item Value Reference Range Interpretation Comments Albumin Lvl (test code = Albumin Lvl) 2.7 3.5-5.0 [facility]2016-07-30 09:17:00 Test Item Value Reference Range Interpretation Comments AGAP (test code = AGAP) 10.9 10.0-20.0 [facility]2016-07-30 09:17:00 Test Item Value Reference Range Interpretation Comments Calcium Lvl (test code = Calcium Lvl) 10.0 8.5-10.5 [facility]2016-07-30 09:17:00 Test Item Value Reference Range Interpretation Comments Glucose Lvl (test code = Glucose Lvl) 208 70-99 [facility]2016-07-30 09:17:00 Test Item Value Reference Range Interpretation Comments Potassium Lvl (test code = Potassium 3.9 3.5-5.1 Lvl) [facility]2016-07-30 09:17:00 Test Item Value Reference Range Interpretation Comments BUN (test code = BUN) 20 7-22 [facility]2016-07-30 09:17:00 Test Item Value Reference Range Interpretation Comments Sodium Lvl (test code = Sodium Lvl) 145 135-145 [facility]2016-07-30 09:17:00 Test Item Value Reference Range Interpretation Comments Chloride Lvl (test code = Chloride Lvl) 109 95-109 [facility]2016-07-30 09:17:00 Test Item Value Reference Range Interpretation Comments CO2 (test code = CO2) 29 24-32 [facility]2016-07-30 09:17:00 Test Item Value Reference Range Interpretation Comments B/C Ratio (test code = B/C Ratio) 27 6-25 [facility]2016-07-30 09:17:00 Test Item Value Reference Range Interpretation Comments A/G Ratio (test code = A/G Ratio) 1.2 0.7-1.6 [facility]2016-07-30 09:17:00 Test Item Value Reference Range Interpretation Comments Globulin (test code = Globulin) 2.3 2.0-4.0 [facility] PasoRhbppotYXIQGLCBUY9808-95-34 09:17:00 Test Item Value Reference Range Interpretation Comments Monocytes (test code = Monocytes) 11.7 2.0-12.0 [facility] PasoLwawawsGCDGINCTPT3473-86-99 09:17:00 Test Item Value Reference Range Interpretation Comments Segs-Bands # (test code = Segs-Bands #) 4.9 1.5-8.1 [facility] PasoPgzorumQGWDFVPZYH4554-53-05 09:17:00 Test Item Value Reference Range Interpretation Comments Basophils (test code = Basophils) 0.4 <=1.0 [facility] PasoUnoioguQNQVHDKYXB5883-32-37 09:17:00 Test Item Value Reference Range Interpretation Comments Lymphocytes # (test code = Lymphocytes 1.3 1.0-5.5 #) [facility] PasoCujzrckMWFNOJPMCZ2575-67-51 09:17:00 Test Item Value Reference Range Interpretation Comments Macrocyte (test code = 1+ *ABN*(01/15/16 Macrocyte) 4:17 AM) [facility] PasoCyzuzqnNXZWBOGQJJ2513-84-21 09:17:00 Test Item Value Reference Range Interpretation Comments Segs (test code = Segs) 67.7 45.0-75.0 [facility] PasoNysvbxfJVSVNLIMQI5989-73-51 09:17:00 Test Item Value Reference Range Interpretation Comments Lymphocytes (test code = Lymphocytes) 17.4 20.0-40.0 [facility] PasoJdtiidwQIJRAAHLIN0893-84-15 09:17:00 Test Item Value Reference Range Interpretation Comments Eosinophils (test code = Eosinophils) 2.8 <=4.0 [facility] PasoAyhsbczDVMQUKDIZL6333-80-27 09:17:00 Test Item Value Reference Range Interpretation Comments Basophils # (test code = Basophils #) 0.0 <=0.2 [facility] PasoPjbiiroUVAYNHYRPG9387-32-68 09:17:00 Test Item Value Reference Range Interpretation Comments Eosinophils # (test code = Eosinophils 0.2 <=0.5 #) [place] 254356-07-30 09:17:00 Test Item Value Reference Range Interpretation Comments Monocytes # (test code = Monocytes #) 0.9 <=0.8 [facility] PasoLiktnfgKIPKOZKOAN5312-82-66 09:17:00 Test Item Value Reference Range Interpretation Comments Platelet (test code = Platelet) 149 133-450 [facility] PasoPaolzegNYSQAYVFEE4324-78-13 09:17:00 Test Item Value Reference Range Interpretation Comments WBC (test code = WBC) 7.3 3.7-10.4 [facility] PasoTrgfykrLMPFCKAIXR9121-86-27 09:17:00 Test Item Value Reference Range Interpretation Comments Hct (test code = Hct) 39.8 36.0-48.0 [facility] PasoRrdfhczKRZAICKELU9534-76-98 09:17:00 Test Item Value Reference Range Interpretation Comments Hgb (test code = Hgb) 13.0 12.0-16.0 [facility] PasoJplirvuGRRKEQIGPR8062-52-78 09:17:00 Test Item Value Reference Range Interpretation Comments RBC (test code = RBC) 4.23 4.20-5.40 [facility] PasoEmsfnawXGXIBKVAYB0800-95-37 09:17:00 Test Item Value Reference Range Interpretation Comments MCHC (test code = MCHC) 32.8 32.0-36.0 [facility] PasoDhshtmhEDZNHANDXX9621-26-72 09:17:00 Test Item Value Reference Range Interpretation Comments MCV (test code = MCV) 94.0 80.0-98.0 [facility] PasoWmzyshtEKJPQFIZMV3939-32-26 09:17:00 Test Item Value Reference Range Interpretation Comments MCH (test code = MCH) 30.8 pg 27.0-31.0 [facility] PasoWhvcnnwSUIUBPUBWC1318-31-85 09:17:00 Test Item Value Reference Range Interpretation Comments RDW (test code = RDW) 13.5 11.5-14.5 [facility] PasoSelmqeaENHTUERGNR4037-21-63 09:17:00 Test Item Value Reference Range Interpretation Comments MPV (test code = MPV) 9.6 7.4-10.4 [facility]2016-07-30 09:17:00 Test Item Value Reference Range Interpretation Comments eGFR (test code = eGFR) 81 [facility]2016-07-30 09:17:00 Test Item Value Reference Range Interpretation Comments Creatinine Lvl (test code = Creatinine 0.73 0.50-1.40 Lvl) [facility]2016-07-30 09:17:00 Test Item Value Reference Range Interpretation Comments AST (test code = AST) 7 <=37 [facility]2016-07-30 09:17:00 Test Item Value Reference Range Interpretation Comments Total Protein (test code = Total 5.0 6.4-8.4 Protein) [facility]2016-07-30 09:17:00 Test Item Value Reference Range Interpretation Comments Alk Phos (test code = Alk Phos) 73 39-136 [facility]2016-07-30 09:17:00 Test Item Value Reference Range Interpretation Comments ALT (test code = ALT) 29 <=65 [facility]2016-07-30 09:17:00 Test Item Value Reference Range Interpretation Comments Bili Total (test code = Bili Total) 0.7 0.2-1.3 [facility]2016-07-30 09:17:00 Test Item Value Reference Range Interpretation Comments Albumin Lvl (test code = Albumin Lvl) 2.7 3.5-5.0 [facility]2016-07-30 09:17:00 Test Item Value Reference Range Interpretation Comments AGAP (test code = AGAP) 10.9 10.0-20.0 [facility]2016-07-30 09:17:00 Test Item Value Reference Range Interpretation Comments Calcium Lvl (test code = Calcium Lvl) 10.0 8.5-10.5 [facility]2016-07-30 09:17:00 Test Item Value Reference Range Interpretation Comments Glucose Lvl (test code = Glucose Lvl) 208 70-99 [facility]2016-07-30 09:17:00 Test Item Value Reference Range Interpretation Comments Potassium Lvl (test code = Potassium 3.9 3.5-5.1 Lvl) [facility]2016-07-30 09:17:00 Test Item Value Reference Range Interpretation Comments BUN (test code = BUN) 20 7-22 [facility]2016-07-30 09:17:00 Test Item Value Reference Range Interpretation Comments Sodium Lvl (test code = Sodium Lvl) 145 135-145 [facility]2016-07-30 09:17:00 Test Item Value Reference Range Interpretation Comments Chloride Lvl (test code = Chloride Lvl) 109 95-109 [facility]2016-07-30 09:17:00 Test Item Value Reference Range Interpretation Comments CO2 (test code = CO2) 29 24-32 [facility]2016-07-30 09:17:00 Test Item Value Reference Range Interpretation Comments B/C Ratio (test code = B/C Ratio) 27 6-25 [facility]2016-07-30 09:17:00 Test Item Value Reference Range Interpretation Comments A/G Ratio (test code = A/G Ratio) 1.2 0.7-1.6 [facility]2016-07-30 09:17:00 Test Item Value Reference Range Interpretation Comments Globulin (test code = Globulin) 2.3 2.0-4.0 [facility] PasoSqjhlrrUZZXVJSGIV3749-78-82 09:17:00 Test Item Value Reference Range Interpretation Comments Monocytes (test code = Monocytes) 11.7 2.0-12.0 [facility] PasoExywuhyJWWLUSRAOB1929-98-16 09:17:00 Test Item Value Reference Range Interpretation Comments Segs-Bands # (test code = Segs-Bands #) 4.9 1.5-8.1 [facility] PasoVhunsuuNNTMSAHSAF6131-23-03 09:17:00 Test Item Value Reference Range Interpretation Comments Basophils (test code = Basophils) 0.4 <=1.0 [facility] PasoKkghqopMOIRFVKQDB6137-24-03 09:17:00 Test Item Value Reference Range Interpretation Comments Lymphocytes # (test code = Lymphocytes 1.3 1.0-5.5 #) [facility] PasoUwyqoivSABMBGJZWV6460-10-10 09:17:00 Test Item Value Reference Range Interpretation Comments Macrocyte (test code = 1+ *ABN*(01/15/16 Macrocyte) 4:17 AM) [facility] PasoVfmysuzGKIZVHJNCQ0441-65-42 09:17:00 Test Item Value Reference Range Interpretation Comments Segs (test code = Segs) 67.7 45.0-75.0 [facility] PasoMvlazjoZWLSGWFWNR7709-97-26 09:17:00 Test Item Value Reference Range Interpretation Comments Lymphocytes (test code = Lymphocytes) 17.4 20.0-40.0 [facility] PasoDihsgvzXXSXIPVTQZ4594-70-22 09:17:00 Test Item Value Reference Range Interpretation Comments Eosinophils (test code = Eosinophils) 2.8 <=4.0 [facility] PasoQlpvwxrFZRLUCNULY7768-23-41 09:17:00 Test Item Value Reference Range Interpretation Comments Basophils # (test code = Basophils #) 0.0 <=0.2 [facility] PasoEnxdgnhDJUXWLCBPQ5890-89-34 09:17:00 Test Item Value Reference Range Interpretation Comments Eosinophils # (test code = Eosinophils 0.2 <=0.5 #) [facility] PasoKmhkibiAEIHRDAEQT9467-40-88 09:17:00 Test Item Value Reference Range Interpretation Comments Monocytes # (test code = Monocytes #) 0.9 <=0.8 [facility] PasoFlbuixeJUEJQGPCZP9693-57-78 09:17:00 Test Item Value Reference Range Interpretation Comments Platelet (test code = Platelet) 149 133-450 [facility] PasoGfilhreTUEALAROVW3496-55-85 09:17:00 Test Item Value Reference Range Interpretation Comments WBC (test code = WBC) 7.3 3.7-10.4 [facility] PasoTvpesveYUPILYPYZB4544-79-71 09:17:00 Test Item Value Reference Range Interpretation Comments Hct (test code = Hct) 39.8 36.0-48.0 [facility] PasoKxhrfbuFAJZHKVYQF6289-99-26 09:17:00 Test Item Value Reference Range Interpretation Comments Hgb (test code = Hgb) 13.0 12.0-16.0 [facility] PasoEpligztKBLVWNDTPB5419-04-03 09:17:00 Test Item Value Reference Range Interpretation Comments RBC (test code = RBC) 4.23 4.20-5.40 [facility] PasoTgtcctkONFORKLTST8073-93-03 09:17:00 Test Item Value Reference Range Interpretation Comments MCHC (test code = MCHC) 32.8 32.0-36.0 [facility] PasoTcpvlzmOQRPTJVFET4095-46-26 09:17:00 Test Item Value Reference Range Interpretation Comments MCV (test code = MCV) 94.0 80.0-98.0 [facility] PasoMgvepmiPTHGXFXIDT1652-75-70 09:17:00 Test Item Value Reference Range Interpretation Comments MCH (test code = MCH) 30.8 pg 27.0-31.0 [facility] PasoLhcicyhZVYBKJIHTR7777-53-08 09:17:00 Test Item Value Reference Range Interpretation Comments RDW (test code = RDW) 13.5 11.5-14.5 [facility] PasoLjynzguIGZFXKFIXO8594-40-72 09:17:00 Test Item Value Reference Range Interpretation Comments MPV (test code = MPV) 9.6 7.4-10.4 [facility]2016-07-30 09:17:00 Test Item Value Reference Range Interpretation Comments eGFR (test code = eGFR) 81 [facility]2016-07-30 09:17:00 Test Item Value Reference Range Interpretation Comments Creatinine Lvl (test code = Creatinine 0.73 0.50-1.40 Lvl) [facility]2016-07-30 09:17:00 Test Item Value Reference Range Interpretation Comments AST (test code = AST) 7 <=37 [facility]2016-07-30 09:17:00 Test Item Value Reference Range Interpretation Comments Total Protein (test code = Total 5.0 6.4-8.4 Protein) [facility]2016-07-30 09:17:00 Test Item Value Reference Range Interpretation Comments Alk Phos (test code = Alk Phos) 73 39-136 [facility]2016-07-30 09:17:00 Test Item Value Reference Range Interpretation Comments ALT (test code = ALT) 29 <=65 [facility]2016-07-30 09:17:00 Test Item Value Reference Range Interpretation Comments Bili Total (test code = Bili Total) 0.7 0.2-1.3 [facility]2016-07-30 09:17:00 Test Item Value Reference Range Interpretation Comments Albumin Lvl (test code = Albumin Lvl) 2.7 3.5-5.0 [facility]2016-07-30 09:17:00 Test Item Value Reference Range Interpretation Comments AGAP (test code = AGAP) 10.9 10.0-20.0 [facility]2016-07-30 09:17:00 Test Item Value Reference Range Interpretation Comments Calcium Lvl (test code = Calcium Lvl) 10.0 8.5-10.5 [facility]2016-07-30 09:17:00 Test Item Value Reference Range Interpretation Comments Glucose Lvl (test code = Glucose Lvl) 208 70-99 [facility]2016-07-30 09:17:00 Test Item Value Reference Range Interpretation Comments Potassium Lvl (test code = Potassium 3.9 3.5-5.1 Lvl) [facility]2016-07-30 09:17:00 Test Item Value Reference Range Interpretation Comments BUN (test code = BUN) 20 7- [facility]2016-07-30 09:17:00 Test Item Value Reference Range Interpretation Comments Sodium Lvl (test code = Sodium Lvl) 145 135-145 [facility]2016-07-30 09:17:00 Test Item Value Reference Range Interpretation Comments Chloride Lvl (test code = Chloride Lvl) 109 95-109 [facility]2016-07-30 09:17:00 Test Item Value Reference Range Interpretation Comments CO2 (test code = CO2) 29 24-32 [facility]2016-07-30 09:17:00 Test Item Value Reference Range Interpretation Comments B/C Ratio (test code = B/C Ratio) 27 6- [facility]2016-07-30 09:17:00 Test Item Value Reference Range Interpretation Comments A/G Ratio (test code = A/G Ratio) 1.2 0.7-1.6 [facility]2016-07-30 09:17:00 Test Item Value Reference Range Interpretation Comments Globulin (test code = Globulin) 2.3 2.0-4.0 [facility] PasoIfttwtrXQMGBHVNQI5730-79-70 09:17:00 Test Item Value Reference Range Interpretation Comments Monocytes (test code = Monocytes) 11.7 2.0-12.0 [facility] PasoMjrlxksDAFZVQIDVO0067-48-93 09:17:00 Test Item Value Reference Range Interpretation Comments Segs-Bands # (test code = Segs-Bands #) 4.9 1.5-8.1 [facility] PasoTklfusoUKIZNTWOTH8914-26-21 09:17:00 Test Item Value Reference Range Interpretation Comments Basophils (test code = Basophils) 0.4 <=1.0 [facility] PasoFwgoouiSKSOBCPAOF1488-01-52 09:17:00 Test Item Value Reference Range Interpretation Comments Lymphocytes # (test code = Lymphocytes 1.3 1.0-5.5 #) [facility] PasoLxvwlinNCQKJUVJCP5206-23-48 09:17:00 Test Item Value Reference Range Interpretation Comments Macrocyte (test code = 1+ *ABN*(01/15/16 Macrocyte) 4:17 AM) [facility] PasoFyjbxhpOGDCHXEHFX1796-22-61 09:17:00 Test Item Value Reference Range Interpretation Comments Segs (test code = Segs) 67.7 45.0-75.0 [facility] PasoHccokyyMRXVOPSIHR7311-37-57 09:17:00 Test Item Value Reference Range Interpretation Comments Lymphocytes (test code = Lymphocytes) 17.4 20.0-40.0 [facility] PasoBnqjiufOLMEYBKBMI5931-48-48 09:17:00 Test Item Value Reference Range Interpretation Comments Eosinophils (test code = Eosinophils) 2.8 <=4.0 [facility] PasoGzndzuhKLPDCAYMNY8150-01-98 09:17:00 Test Item Value Reference Range Interpretation Comments Basophils # (test code = Basophils #) 0.0 <=0.2 [facility] PasoXgjyfzwSGNYLJZPLR5880-20-81 09:17:00 Test Item Value Reference Range Interpretation Comments Eosinophils # (test code = Eosinophils 0.2 <=0.5 #) [facility] PasoCjzpnfvACVNLVKSAN8258-49-13 09:17:00 Test Item Value Reference Range Interpretation Comments Monocytes # (test code = Monocytes #) 0.9 <=0.8 [facility] PasoCtccwsvXJMABGTCRY7445-27-29 09:17:00 Test Item Value Reference Range Interpretation Comments Platelet (test code = Platelet) 149 133-450 [facility] PasoNfnqcytSMTJSMKCYJ1861-62-77 09:17:00 Test Item Value Reference Range Interpretation Comments WBC (test code = WBC) 7.3 3.7-10.4 [facility] PasoJcwlsjbYBXWRRHTSW3937-47-16 09:17:00 Test Item Value Reference Range Interpretation Comments Hct (test code = Hct) 39.8 36.0-48.0 [facility] PasoJlvhskdFZUNCAUPTW2649-11-83 09:17:00 Test Item Value Reference Range Interpretation Comments Hgb (test code = Hgb) 13.0 12.0-16.0 [facility] PasoUzdtiyxJORNLHZBHG1905-52-07 09:17:00 Test Item Value Reference Range Interpretation Comments RBC (test code = RBC) 4.23 4.20-5.40 [facility] PasoDtoguedEZKOEDYTOH1841-90-00 09:17:00 Test Item Value Reference Range Interpretation Comments MCHC (test code = MCHC) 32.8 32.0-36.0 [facility] PasoFnuzdihSAEEZDHSPH7658-35-75 09:17:00 Test Item Value Reference Range Interpretation Comments MCV (test code = MCV) 94.0 80.0-98.0 [facility] PasoYwqkxyfSITUDQSTWN1334-26-18 09:17:00 Test Item Value Reference Range Interpretation Comments MCH (test code = MCH) 30.8 pg 27.0-31.0 [facility] PasoMtrthvnTBVGWZRHVJ7381-08-29 09:17:00 Test Item Value Reference Range Interpretation Comments RDW (test code = RDW) 13.5 11.5-14.5 [facility] PasoXqzuqjgBMKIOYGBIX7785-76-60 09:17:00 Test Item Value Reference Range Interpretation Comments MPV (test code = MPV) 9.6 7.4-10.4 [facility]2016-07-30 09:17:00 Test Item Value Reference Range Interpretation Comments eGFR (test code = eGFR) 81 [facility]2016-07-30 09:17:00 Test Item Value Reference Range Interpretation Comments Creatinine Lvl (test code = Creatinine 0.73 0.50-1.40 Lvl) [facility]2016-07-30 09:17:00 Test Item Value Reference Range Interpretation Comments AST (test code = AST) 7 <=37 [facility]2016-07-30 09:17:00 Test Item Value Reference Range Interpretation Comments Total Protein (test code = Total 5.0 6.4-8.4 Protein) [facility]2016-07-30 09:17:00 Test Item Value Reference Range Interpretation Comments Alk Phos (test code = Alk Phos) 73 39-136 [facility]2016-07-30 09:17:00 Test Item Value Reference Range Interpretation Comments ALT (test code = ALT) 29 <=65 [facility]2016-07-30 09:17:00 Test Item Value Reference Range Interpretation Comments Bili Total (test code = Bili Total) 0.7 0.2-1.3 [facility]2016-07-30 09:17:00 Test Item Value Reference Range Interpretation Comments Albumin Lvl (test code = Albumin Lvl) 2.7 3.5-5.0 [facility]2016-07-30 09:17:00 Test Item Value Reference Range Interpretation Comments AGAP (test code = AGAP) 10.9 10.0-20.0 [facility]2016-07-30 09:17:00 Test Item Value Reference Range Interpretation Comments Calcium Lvl (test code = Calcium Lvl) 10.0 8.5-10.5 [facility]2016-07-30 09:17:00 Test Item Value Reference Range Interpretation Comments Glucose Lvl (test code = Glucose Lvl) 208 70-99 [facility]2016-07-30 09:17:00 Test Item Value Reference Range Interpretation Comments Potassium Lvl (test code = Potassium 3.9 3.5-5.1 Lvl) [facility]2016-07-30 09:17:00 Test Item Value Reference Range Interpretation Comments BUN (test code = BUN) 20 7-22 [facility]2016-07-30 09:17:00 Test Item Value Reference Range Interpretation Comments Sodium Lvl (test code = Sodium Lvl) 145 135-145 [facility]2016-07-30 09:17:00 Test Item Value Reference Range Interpretation Comments Chloride Lvl (test code = Chloride Lvl) 109 95-109 [facility]2016-07-30 09:17:00 Test Item Value Reference Range Interpretation Comments CO2 (test code = CO2) 29 24-32 [facility]2016-07-30 09:17:00 Test Item Value Reference Range Interpretation Comments B/C Ratio (test code = B/C Ratio) 27 6-25 [facility]2016-07-30 09:17:00 Test Item Value Reference Range Interpretation Comments A/G Ratio (test code = A/G Ratio) 1.2 0.7-1.6 [facility]2016-07-30 09:17:00 Test Item Value Reference Range Interpretation Comments Globulin (test code = Globulin) 2.3 2.0-4.0 [facility] PasoZklexrmPODCAPGYKM2579-99-56 09:17:00 Test Item Value Reference Range Interpretation Comments Monocytes (test code = Monocytes) 11.7 2.0-12.0 [facility] PasoPelrhxkKDQGTFKPOI6006-71-17 09:17:00 Test Item Value Reference Range Interpretation Comments Segs-Bands # (test code = Segs-Bands #) 4.9 1.5-8.1 [facility] PasoHwoocsnDFPOXLCRMU4755-76-44 09:17:00 Test Item Value Reference Range Interpretation Comments Basophils (test code = Basophils) 0.4 <=1.0 [facility]TznkmgvMTBIHGLCEM7461-83-79 09:17:00 Test Item Value Reference Range Interpretation Comments Lymphocytes # (test code = Lymphocytes 1.3 1.0-5.5 #) [facility]QlgvefwVEHOBSBMFQ8015-20-56 09:17:00 Test Item Value Reference Range Interpretation Comments Macrocyte (test code = 1+ *ABN*(01/15/16 Macrocyte) 4:17 AM) [facility]oLxnjhcwWHPWOZNFXZ6514-68-88 09:17:00 Test Item Value Reference Range Interpretation Comments Segs (test code = Segs) 67.7 45.0-75.0 [facility] PasoYripdcxXGFSMCDMCX2866-02-22 09:17:00 Test Item Value Reference Range Interpretation Comments Lymphocytes (test code = Lymphocytes) 17.4 20.0-40.0 [facility] PasoIezagulRMORNQUQEC8998-97-34 09:17:00 Test Item Value Reference Range Interpretation Comments Eosinophils (test code = Eosinophils) 2.8 <=4.0 [facility]XmynryfWYCPUXWWJN7532-75-80 09:17:00 Test Item Value Reference Range Interpretation Comments Basophils # (test code = Basophils #) 0.0 <=0.2 [facility]oSndhkdkBRKOIMBXBG6392-42-92 09:17:00 Test Item Value Reference Range Interpretation Comments Eosinophils # (test code = Eosinophils 0.2 <=0.5 #) [facility] PasoMpzkkzuQTGUKGGHRI4945-76-62 09:17:00 Test Item Value Reference Range Interpretation Comments Monocytes # (test code = Monocytes #) 0.9 <=0.8 [facility] PasoJfigoslEAZUMKQVNX4829-60-24 09:17:00 Test Item Value Reference Range Interpretation Comments Platelet (test code = Platelet) 149 133-450 [facility] PasoTqfvwccMPHVSYPWAR7306-79-09 09:17:00 Test Item Value Reference Range Interpretation Comments WBC (test code = WBC) 7.3 3.7-10.4 [facility] PasoKqnyjxwSKOMHMXJDT7434-92-77 09:17:00 Test Item Value Reference Range Interpretation Comments Hct (test code = Hct) 39.8 36.0-48.0 [facility] PasoExhdluiEOMQWLODKB4476-23-63 09:17:00 Test Item Value Reference Range Interpretation Comments Hgb (test code = Hgb) 13.0 12.0-16.0 [facility] PasoAejpvjcHLIJDVBQUQ3724-94-65 09:17:00 Test Item Value Reference Range Interpretation Comments RBC (test code = RBC) 4.23 4.20-5.40 [facility] PasoVpdzxwqQMJBNLNNPZ4202-80-03 09:17:00 Test Item Value Reference Range Interpretation Comments MCHC (test code = MCHC) 32.8 32.0-36.0 [facility] PasoQkuiezpEXWMHNZEIV7048-93-86 09:17:00 Test Item Value Reference Range Interpretation Comments MCV (test code = MCV) 94.0 80.0-98.0 [facility]oSizqzvwJOFKZSJJEZ3223-40-00 09:17:00 Test Item Value Reference Range Interpretation Comments MCH (test code = MCH) 30.8 pg 27.0-31.0 [facility] PasoOpvoyhdDSREGNWYXY6605-75-61 09:17:00 Test Item Value Reference Range Interpretation Comments RDW (test code = RDW) 13.5 11.5-14.5 [facility] [place]JycymqpAHCNAOAFHL0365-12-57 09:17:00 Test Item Value Reference Range Interpretation Comments MPV (test code = MPV) 9.6 7.4-10.4 [facility]2016-07-30 09:17:00 Test Item Value Reference Range Interpretation Comments eGFR (test code = eGFR) 81 [facility]2016-07-30 09:17:00 Test Item Value Reference Range Interpretation Comments Creatinine Lvl (test code = Creatinine 0.73 0.50-1.40 Lvl) [facility]2016-07-30 09:17:00 Test Item Value Reference Range Interpretation Comments AST (test code = AST) 7 <=37 [facility]2016-07-30 09:17:00 Test Item Value Reference Range Interpretation Comments Total Protein (test code = Total 5.0 6.4-8.4 Protein) [facility]2016-07-30 09:17:00 Test Item Value Reference Range Interpretation Comments Alk Phos (test code = Alk Phos) 73 39-136 [facility]2016-07-30 09:17:00 Test Item Value Reference Range Interpretation Comments ALT (test code = ALT) 29 <=65 [facility]2016-07-30 09:17:00 Test Item Value Reference Range Interpretation Comments Bili Total (test code = Bili Total) 0.7 0.2-1.3 [facility]2016-07-30 09:17:00 Test Item Value Reference Range Interpretation Comments Albumin Lvl (test code = Albumin Lvl) 2.7 3.5-5.0 [facility]2016-07-30 09:17:00 Test Item Value Reference Range Interpretation Comments AGAP (test code = AGAP) 10.9 10.0-20.0 [facility]2016-07-30 09:17:00 Test Item Value Reference Range Interpretation Comments Calcium Lvl (test code = Calcium Lvl) 10.0 8.5-10.5 [facility]2016-07-30 09:17:00 Test Item Value Reference Range Interpretation Comments Glucose Lvl (test code = Glucose Lvl) 208 70-99 [facility]2016-07-30 09:17:00 Test Item Value Reference Range Interpretation Comments Potassium Lvl (test code = Potassium 3.9 3.5-5.1 Lvl) [facility]2016-07-30 09:17:00 Test Item Value Reference Range Interpretation Comments BUN (test code = BUN) 20 7-22 [facility]2016-07-30 09:17:00 Test Item Value Reference Range Interpretation Comments Sodium Lvl (test code = Sodium Lvl) 145 135-145 [facility]2016-07-30 09:17:00 Test Item Value Reference Range Interpretation Comments Chloride Lvl (test code = Chloride Lvl) 109 95-109 [facility]2016-07-30 09:17:00 Test Item Value Reference Range Interpretation Comments CO2 (test code = CO2) 29 24-32 [facility]2016-07-30 09:17:00 Test Item Value Reference Range Interpretation Comments B/C Ratio (test code = B/C Ratio) 27 6-25 [facility]2016-07-30 09:17:00 Test Item Value Reference Range Interpretation Comments A/G Ratio (test code = A/G Ratio) 1.2 0.7-1.6 [facility]2016-07-30 09:17:00 Test Item Value Reference Range Interpretation Comments Globulin (test code = Globulin) 2.3 2.0-4.0 [facility] PasoNrjufbxNOAEESRVMA7954-75-73 09:17:00 Test Item Value Reference Range Interpretation Comments Monocytes (test code = Monocytes) 11.7 2.0-12.0 [facility] PasoStltlruLTZLJWUBJR6479-50-81 09:17:00 Test Item Value Reference Range Interpretation Comments Segs-Bands # (test code = Segs-Bands #) 4.9 1.5-8.1 [facility] [place]XbzmmzcNHUHMAYWOF0362-09-65 09:17:00 Test Item Value Reference Range Interpretation Comments Basophils (test code = Basophils) 0.4 <=1.0 [facility] [place]QsbxjahSMNSTDPQIL8743-11-90 09:17:00 Test Item Value Reference Range Interpretation Comments Lymphocytes # (test code = Lymphocytes 1.3 1.0-5.5 #) [facility] PasoAgaoxfoIQCAKTQRSF9732-04-38 09:17:00 Test Item Value Reference Range Interpretation Comments Macrocyte (test code = 1+ *ABN*(01/15/16 Macrocyte) 4:17 AM) [facility] PasoDbmpgyeLGLETZPXMA9776-72-58 09:17:00 Test Item Value Reference Range Interpretation Comments Segs (test code = Segs) 67.7 45.0-75.0 [facility] PasoQtkffsuEWXTJUBXKC1371-22-68 09:17:00 Test Item Value Reference Range Interpretation Comments Lymphocytes (test code = Lymphocytes) 17.4 20.0-40.0 [facility] PasoVoxyeneIRSDXRSATI3109-63-06 09:17:00 Test Item Value Reference Range Interpretation Comments Eosinophils (test code = Eosinophils) 2.8 <=4.0 [facility] PasoIcpxznmWATNRPLNKI7348-02-27 09:17:00 Test Item Value Reference Range Interpretation Comments Basophils # (test code = Basophils #) 0.0 <=0.2 [facility] PasoGxnbvmgIOLBDQFWTF5967-68-46 09:17:00 Test Item Value Reference Range Interpretation Comments Eosinophils # (test code = Eosinophils 0.2 <=0.5 #) [facility] PasoHmtatukMKVNFKOZGE5034-56-91 09:17:00 Test Item Value Reference Range Interpretation Comments Monocytes # (test code = Monocytes #) 0.9 <=0.8 [facility] PasoRezlnhvMTFNDVXOVE1564-81-22 09:17:00 Test Item Value Reference Range Interpretation Comments Platelet (test code = Platelet) 149 133-450 [facility] PasoUqtzyjmFWUQGQUKWM6062-87-68 09:17:00 Test Item Value Reference Range Interpretation Comments WBC (test code = WBC) 7.3 3.7-10.4 [facility] PasoFybayndIFKSDJDCXK8091-85-69 09:17:00 Test Item Value Reference Range Interpretation Comments Hct (test code = Hct) 39.8 36.0-48.0 [facility] PasoKeuhyiaKPGGAUQSEX0688-69-99 09:17:00 Test Item Value Reference Range Interpretation Comments Hgb (test code = Hgb) 13.0 12.0-16.0 [facility] PasoPlnvouyXXODLAFEPA8469-46-99 09:17:00 Test Item Value Reference Range Interpretation Comments RBC (test code = RBC) 4.23 4.20-5.40 [facility]QpkafbwDWVVYAZSWC0718-26-73 09:17:00 Test Item Value Reference Range Interpretation Comments MCHC (test code = MCHC) 32.8 32.0-36.0 [facility] PasoJodoawpZENNRJMMVN9970-71-38 09:17:00 Test Item Value Reference Range Interpretation Comments MCV (test code = MCV) 94.0 80.0-98.0 [facility]YgrpayxAYJZXFWLCM9705-56-90 09:17:00 Test Item Value Reference Range Interpretation Comments MCH (test code = MCH) 30.8 pg 27.0-31.0 [facility] PasoRclafpkQHYIVZIXHO5167-45-76 09:17:00 Test Item Value Reference Range Interpretation Comments RDW (test code = RDW) 13.5 11.5-14.5 [facility] PasoBbivylwGTXCXMUMEW8482-74-32 09:17:00 Test Item Value Reference Range Interpretation Comments MPV (test code = MPV) 9.6 7.4-10.4 [facility]2016-07-30 09:17:00 Test Item Value Reference Range Interpretation Comments eGFR (test code = eGFR) 81 [facility]2016-07-30 09:17:00 Test Item Value Reference Range Interpretation Comments Creatinine Lvl (test code = Creatinine 0.73 0.50-1.40 Lvl) [facility]2016-07-30 09:17:00 Test Item Value Reference Range Interpretation Comments AST (test code = AST) 7 <=37 [facility]2016-07-30 09:17:00 Test Item Value Reference Range Interpretation Comments Total Protein (test code = Total 5.0 6.4-8.4 Protein) [facility]2016-07-30 09:17:00 Test Item Value Reference Range Interpretation Comments Alk Phos (test code = Alk Phos) 73 39-136 [facility]2016-07-30 09:17:00 Test Item Value Reference Range Interpretation Comments ALT (test code = ALT) 29 <=65 [facility]2016-07-30 09:17:00 Test Item Value Reference Range Interpretation Comments Bili Total (test code = Bili Total) 0.7 0.2-1.3 [facility]2016-07-30 09:17:00 Test Item Value Reference Range Interpretation Comments Albumin Lvl (test code = Albumin Lvl) 2.7 3.5-5.0 [facility]2016-07-30 09:17:00 Test Item Value Reference Range Interpretation Comments AGAP (test code = AGAP) 10.9 10.0-20.0 [facility]2016-07-30 09:17:00 Test Item Value Reference Range Interpretation Comments Calcium Lvl (test code = Calcium Lvl) 10.0 8.5-10.5 [facility]2016-07-30 09:17:00 Test Item Value Reference Range Interpretation Comments Glucose Lvl (test code = Glucose Lvl) 208 70-99 [facility]2016-07-30 09:17:00 Test Item Value Reference Range Interpretation Comments Potassium Lvl (test code = Potassium 3.9 3.5-5.1 Lvl) [facility]2016-07-30 09:17:00 Test Item Value Reference Range Interpretation Comments BUN (test code = BUN) 20 7-22 [facility]2016-07-30 09:17:00 Test Item Value Reference Range Interpretation Comments Sodium Lvl (test code = Sodium Lvl) 145 135-145 [facility]2016-07-30 09:17:00 Test Item Value Reference Range Interpretation Comments Chloride Lvl (test code = Chloride Lvl) 109 95-109 [facility]2016-07-30 09:17:00 Test Item Value Reference Range Interpretation Comments CO2 (test code = CO2) 29 24-32 [facility]2016-07-30 09:17:00 Test Item Value Reference Range Interpretation Comments B/C Ratio (test code = B/C Ratio) 27 6-25 [facility]2016-07-30 09:17:00 Test Item Value Reference Range Interpretation Comments A/G Ratio (test code = A/G Ratio) 1.2 0.7-1.6 [facility]2016-07-30 09:17:00 Test Item Value Reference Range Interpretation Comments Globulin (test code = Globulin) 2.3 2.0-4.0 [facility] PasoHednsoeQZNSYBAASG8146-48-85 09:17:00 Test Item Value Reference Range Interpretation Comments Monocytes (test code = Monocytes) 11.7 2.0-12.0 [facility] PasoOmnicwzKYHSWZGOQU8793-96-38 09:17:00 Test Item Value Reference Range Interpretation Comments Segs-Bands # (test code = Segs-Bands #) 4.9 1.5-8.1 [facility] PasoKopqzoxDEGHTXNNZK0593-10-99 09:17:00 Test Item Value Reference Range Interpretation Comments Basophils (test code = Basophils) 0.4 <=1.0 [facility] PasoVedvqicCXCCVDRIIW3554-83-07 09:17:00 Test Item Value Reference Range Interpretation Comments Lymphocytes # (test code = Lymphocytes 1.3 1.0-5.5 #) [facility] PasoKvfepjpRLKFBQDWZL5830-65-74 09:17:00 Test Item Value Reference Range Interpretation Comments Macrocyte (test code = 1+ *ABN*(01/15/16 Macrocyte) 4:17 AM) [facility] PasoMfsvafdZGPNEYBDOW1711-73-18 09:17:00 Test Item Value Reference Range Interpretation Comments Segs (test code = Segs) 67.7 45.0-75.0 [facility] PasoCecwzlzGSRHDRYFMW2581-11-04 09:17:00 Test Item Value Reference Range Interpretation Comments Lymphocytes (test code = Lymphocytes) 17.4 20.0-40.0 [facility] PasoZcdvqofJSWABQERQZ6066-25-02 09:17:00 Test Item Value Reference Range Interpretation Comments Eosinophils (test code = Eosinophils) 2.8 <=4.0 [facility] PasoFugngefPBIGAARZNO5759-94-80 09:17:00 Test Item Value Reference Range Interpretation Comments Basophils # (test code = Basophils #) 0.0 <=0.2 [place] 254356-07-30 09:17:00 Test Item Value Reference Range Interpretation Comments Eosinophils # (test code = Eosinophils 0.2 <=0.5 #) [facility]HksrvsqYEDZKNIZQN7915-65-91 09:17:00 Test Item Value Reference Range Interpretation Comments Monocytes # (test code = Monocytes #) 0.9 <=0.8 [facility]VrdszomXBNHGNLSET6129-13-46 09:17:00 Test Item Value Reference Range Interpretation Comments Platelet (test code = Platelet) 149 133-450 [facility] PasoDihqtpcOFUARFGLSM1143-53-16 09:17:00 Test Item Value Reference Range Interpretation Comments WBC (test code = WBC) 7.3 3.7-10.4 [facility] PasoFqjfrsoETDMWIBDPJ1325-13-91 09:17:00 Test Item Value Reference Range Interpretation Comments Hct (test code = Hct) 39.8 36.0-48.0 [facility] PasoNkwifulOLOXNQIFSD8333-16-64 09:17:00 Test Item Value Reference Range Interpretation Comments Hgb (test code = Hgb) 13.0 12.0-16.0 [facility] PasoXjsxbydQGVOFMYPRT4186-76-14 09:17:00 Test Item Value Reference Range Interpretation Comments RBC (test code = RBC) 4.23 4.20-5.40 [facility]IvxidjqOLIRNJJFWU3584-69-11 09:17:00 Test Item Value Reference Range Interpretation Comments MCHC (test code = MCHC) 32.8 32.0-36.0 [facility] PasoZdjkdwcXRUHKIGYKW0116-18-23 09:17:00 Test Item Value Reference Range Interpretation Comments MCV (test code = MCV) 94.0 80.0-98.0 [facility] PasoTtoqgnbJUEPEIHPIG4325-17-48 09:17:00 Test Item Value Reference Range Interpretation Comments MCH (test code = MCH) 30.8 pg 27.0-31.0 [facility] PasoWiqvukaWJKJAVRIOH3365-95-31 09:17:00 Test Item Value Reference Range Interpretation Comments RDW (test code = RDW) 13.5 11.5-14.5 [facility] PasoFkkzxmqYYTZOXZLBL7735-74-40 09:17:00 Test Item Value Reference Range Interpretation Comments MPV (test code = MPV) 9.6 7.4-10.4 [facility]2016-07-30 09:17:00 Test Item Value Reference Range Interpretation Comments eGFR (test code = eGFR) 81 [facility]2016-07-30 09:17:00 Test Item Value Reference Range Interpretation Comments Creatinine Lvl (test code = Creatinine 0.73 0.50-1.40 Lvl) [facility]2016-07-30 09:17:00 Test Item Value Reference Range Interpretation Comments AST (test code = AST) 7 <=37 [facility]2016-07-30 09:17:00 Test Item Value Reference Range Interpretation Comments Total Protein (test code = Total 5.0 6.4-8.4 Protein) [facility]2016-07-30 09:17:00 Test Item Value Reference Range Interpretation Comments Alk Phos (test code = Alk Phos) 73 39-136 [facility]2016-07-30 09:17:00 Test Item Value Reference Range Interpretation Comments ALT (test code = ALT) 29 <=65 [facility]2016-07-30 09:17:00 Test Item Value Reference Range Interpretation Comments Bili Total (test code = Bili Total) 0.7 0.2-1.3 [facility]2016-07-30 09:17:00 Test Item Value Reference Range Interpretation Comments Albumin Lvl (test code = Albumin Lvl) 2.7 3.5-5.0 [facility]2016-07-30 09:17:00 Test Item Value Reference Range Interpretation Comments AGAP (test code = AGAP) 10.9 10.0-20.0 [facility]2016-07-30 09:17:00 Test Item Value Reference Range Interpretation Comments Calcium Lvl (test code = Calcium Lvl) 10.0 8.5-10.5 [facility]2016-07-30 09:17:00 Test Item Value Reference Range Interpretation Comments Glucose Lvl (test code = Glucose Lvl) 208 70-99 [facility]2016-07-30 09:17:00 Test Item Value Reference Range Interpretation Comments Potassium Lvl (test code = Potassium 3.9 3.5-5.1 Lvl) [facility]2016-07-30 09:17:00 Test Item Value Reference Range Interpretation Comments BUN (test code = BUN) 20 7-22 [facility]2016-07-30 09:17:00 Test Item Value Reference Range Interpretation Comments Sodium Lvl (test code = Sodium Lvl) 145 135-145 [facility]2016-07-30 09:17:00 Test Item Value Reference Range Interpretation Comments Chloride Lvl (test code = Chloride Lvl) 109 95-109 [facility]2016-07-30 09:17:00 Test Item Value Reference Range Interpretation Comments CO2 (test code = CO2) 29 24-32 [facility]2016-07-30 09:17:00 Test Item Value Reference Range Interpretation Comments B/C Ratio (test code = B/C Ratio) 27 6-25 [facility]2016-07-30 09:17:00 Test Item Value Reference Range Interpretation Comments A/G Ratio (test code = A/G Ratio) 1.2 0.7-1.6 [facility]2016-07-30 09:17:00 Test Item Value Reference Range Interpretation Comments Globulin (test code = Globulin) 2.3 2.0-4.0 [facility] PasoUzttpviGKILMPLAQX1272-73-57 09:17:00 Test Item Value Reference Range Interpretation Comments Monocytes (test code = Monocytes) 11.7 2.0-12.0 [facility] PasoAlwqziqUCJMDZHBTV8829-83-25 09:17:00 Test Item Value Reference Range Interpretation Comments Segs-Bands # (test code = Segs-Bands #) 4.9 1.5-8.1 [facility] PasoHuybbkpPRTUHETZAE9014-84-98 09:17:00 Test Item Value Reference Range Interpretation Comments Basophils (test code = Basophils) 0.4 <=1.0 [facility] PasoHwtxjcqHAHUWGNDRD0066-28-47 09:17:00 Test Item Value Reference Range Interpretation Comments Lymphocytes # (test code = Lymphocytes 1.3 1.0-5.5 #) [facility] PasoYknycsuZMDCQEGMVH8766-44-78 09:17:00 Test Item Value Reference Range Interpretation Comments Macrocyte (test code = 1+ *ABN*(01/15/16 Macrocyte) 4:17 AM) [facility] PasoVudlbgxOITTTXWJBH9294-20-43 09:17:00 Test Item Value Reference Range Interpretation Comments Segs (test code = Segs) 67.7 45.0-75.0 [facility] PasoFzcuuhbCZHLAMJPLV7694-52-15 09:17:00 Test Item Value Reference Range Interpretation Comments Lymphocytes (test code = Lymphocytes) 17.4 20.0-40.0 [facility] PasoJcaldibIVQIDIHVOA2927-15-69 09:17:00 Test Item Value Reference Range Interpretation Comments Eosinophils (test code = Eosinophils) 2.8 <=4.0 [facility] PasoMobnlohAIGUMSJLGS0859-82-70 09:17:00 Test Item Value Reference Range Interpretation Comments Basophils # (test code = Basophils #) 0.0 <=0.2 [facility] PasoMrmmzdsWBEXZUYNVV8176-07-71 09:17:00 Test Item Value Reference Range Interpretation Comments Eosinophils # (test code = Eosinophils 0.2 <=0.5 #) [facility] PasoByyuifhMAPSJVJKZQ7979-66-52 09:17:00 Test Item Value Reference Range Interpretation Comments Monocytes # (test code = Monocytes #) 0.9 <=0.8 [facility] PasoTofmxhqVGAOPEQTAJ0423-60-53 09:17:00 Test Item Value Reference Range Interpretation Comments Platelet (test code = Platelet) 149 133-450 [facility] PasoReodgggZHYQZDYDRZ1035-48-62 09:17:00 Test Item Value Reference Range Interpretation Comments WBC (test code = WBC) 7.3 3.7-10.4 [facility] PasoKcnnzuoQVAPCANBXE5589-56-69 09:17:00 Test Item Value Reference Range Interpretation Comments Hct (test code = Hct) 39.8 36.0-48.0 [facility] PasoMqihinjKTKSHKQSIV9819-83-43 09:17:00 Test Item Value Reference Range Interpretation Comments Hgb (test code = Hgb) 13.0 12.0-16.0 [facility] PasoVvcsvodXYTGMOTTMQ2463-41-15 09:17:00 Test Item Value Reference Range Interpretation Comments RBC (test code = RBC) 4.23 4.20-5.40 [facility] PasoSqpsibyUCUMTAQPQH6739-32-03 09:17:00 Test Item Value Reference Range Interpretation Comments MCHC (test code = MCHC) 32.8 32.0-36.0 [facility] PasoSnlojzvXDGXDYQGIC9895-03-25 09:17:00 Test Item Value Reference Range Interpretation Comments MCV (test code = MCV) 94.0 80.0-98.0 [facility] PasoMvubfnsNYJXEOCRHX0190-28-12 09:17:00 Test Item Value Reference Range Interpretation Comments MCH (test code = MCH) 30.8 pg 27.0-31.0 [facility] PasoVuxpsotRSLZFIGSFJ7993-10-97 09:17:00 Test Item Value Reference Range Interpretation Comments RDW (test code = RDW) 13.5 11.5-14.5 [facility] PasoXujytwhRFXTIYJRQY6538-37-89 09:17:00 Test Item Value Reference Range Interpretation Comments MPV (test code = MPV) 9.6 7.4-10.4 [facility]2016-07-30 09:17:00 Test Item Value Reference Range Interpretation Comments eGFR (test code = eGFR) 81 [facility]2016-07-30 09:17:00 Test Item Value Reference Range Interpretation Comments Creatinine Lvl (test code = Creatinine 0.73 0.50-1.40 Lvl) [facility]2016-07-30 09:17:00 Test Item Value Reference Range Interpretation Comments AST (test code = AST) 7 <=37 [facility]2016-07-30 09:17:00 Test Item Value Reference Range Interpretation Comments Total Protein (test code = Total 5.0 6.4-8.4 Protein) [facility]2016-07-30 09:17:00 Test Item Value Reference Range Interpretation Comments Alk Phos (test code = Alk Phos) 73 39-136 [facility]2016-07-30 09:17:00 Test Item Value Reference Range Interpretation Comments ALT (test code = ALT) 29 <=65 [facility]2016-07-30 09:17:00 Test Item Value Reference Range Interpretation Comments Bili Total (test code = Bili Total) 0.7 0.2-1.3 [facility]2016-07-30 09:17:00 Test Item Value Reference Range Interpretation Comments Albumin Lvl (test code = Albumin Lvl) 2.7 3.5-5.0 [facility]2016-07-30 09:17:00 Test Item Value Reference Range Interpretation Comments AGAP (test code = AGAP) 10.9 10.0-20.0 [facility]2016-07-30 09:17:00 Test Item Value Reference Range Interpretation Comments Calcium Lvl (test code = Calcium Lvl) 10.0 8.5-10.5 [facility]2016-07-30 09:17:00 Test Item Value Reference Range Interpretation Comments Glucose Lvl (test code = Glucose Lvl) 208 70-99 [facility]2016-07-30 09:17:00 Test Item Value Reference Range Interpretation Comments Potassium Lvl (test code = Potassium 3.9 3.5-5.1 Lvl) [place] 257186-07-30 09:17:00 Test Item Value Reference Range Interpretation Comments BUN (test code = BUN) 20 7-22 [facility]2016-07-30 09:17:00 Test Item Value Reference Range Interpretation Comments Sodium Lvl (test code = Sodium Lvl) 145 135-145 [facility]2016-07-30 09:17:00 Test Item Value Reference Range Interpretation Comments Chloride Lvl (test code = Chloride Lvl) 109 95-109 [facility]2016-07-30 09:17:00 Test Item Value Reference Range Interpretation Comments CO2 (test code = CO2) 29 24-32 [facility]2016-07-30 09:17:00 Test Item Value Reference Range Interpretation Comments B/C Ratio (test code = B/C Ratio) 27 6-25 [facility]2016-07-30 09:17:00 Test Item Value Reference Range Interpretation Comments A/G Ratio (test code = A/G Ratio) 1.2 0.7-1.6 [facility]2016-07-30 09:17:00 Test Item Value Reference Range Interpretation Comments Globulin (test code = Globulin) 2.3 2.0-4.0 [facility]NkujokxPSIKHDEFCY0153-13-69 09:17:00 Test Item Value Reference Range Interpretation Comments Monocytes (test code = Monocytes) 11.7 2.0-12.0 [facility] PasoCiwywpvNHCCAKAUGX5462-65-32 09:17:00 Test Item Value Reference Range Interpretation Comments Segs-Bands # (test code = Segs-Bands #) 4.9 1.5-8.1 [facility] PasoTxhhlvzSICUBXDQZX7673-31-76 09:17:00 Test Item Value Reference Range Interpretation Comments Basophils (test code = Basophils) 0.4 <=1.0 [facility] PasoFkmbkfjTPRFUDBRPN2032-70-87 09:17:00 Test Item Value Reference Range Interpretation Comments Lymphocytes # (test code = Lymphocytes 1.3 1.0-5.5 #) [facility] PasoBtevxykEISYPLUSVR5259-33-10 09:17:00 Test Item Value Reference Range Interpretation Comments Macrocyte (test code = 1+ *ABN*(01/15/16 Macrocyte) 4:17 AM) [facility] PasoHbxwoyfAPWEYKFKWR2803-16-08 09:17:00 Test Item Value Reference Range Interpretation Comments Segs (test code = Segs) 67.7 45.0-75.0 [facility] PasoVzdhecfBIBPNBABAF1813-28-41 09:17:00 Test Item Value Reference Range Interpretation Comments Lymphocytes (test code = Lymphocytes) 17.4 20.0-40.0 [facility] PasoRjtwyuvXJYLEAMVJE7004-62-01 09:17:00 Test Item Value Reference Range Interpretation Comments Eosinophils (test code = Eosinophils) 2.8 <=4.0 [facility] PasoGkysrloMMMKDSEOFV9385-85-19 09:17:00 Test Item Value Reference Range Interpretation Comments Basophils # (test code = Basophils #) 0.0 <=0.2 [facility] PasoZniogvlLCATWRYIOO0222-63-62 09:17:00 Test Item Value Reference Range Interpretation Comments Eosinophils # (test code = Eosinophils 0.2 <=0.5 #) [facility] PasoFxrgnutJLLCQBMEEF1776-61-45 09:17:00 Test Item Value Reference Range Interpretation Comments Monocytes # (test code = Monocytes #) 0.9 <=0.8 [facility] PasoZgagxptYMRTRXVYAT0344-22-69 09:17:00 Test Item Value Reference Range Interpretation Comments Platelet (test code = Platelet) 149 133-450 [facility] PasoRifyeoaQWUENEWSYM1599-02-83 09:17:00 Test Item Value Reference Range Interpretation Comments WBC (test code = WBC) 7.3 3.7-10.4 [facility] PasoEkvdcmcCRLLQPBGTE3156-55-47 09:17:00 Test Item Value Reference Range Interpretation Comments Hct (test code = Hct) 39.8 36.0-48.0 [facility] PasoShtwfjiZSSNQSKVNV8021-24-64 09:17:00 Test Item Value Reference Range Interpretation Comments Hgb (test code = Hgb) 13.0 12.0-16.0 [facility] PasoJaufhmsXBFGXQSILZ7564-51-19 09:17:00 Test Item Value Reference Range Interpretation Comments RBC (test code = RBC) 4.23 4.20-5.40 [facility] PasoTienjrbGWMIKUOOBL8503-60-29 09:17:00 Test Item Value Reference Range Interpretation Comments MCHC (test code = MCHC) 32.8 32.0-36.0 [facility] PasoKrsmhfsKIYQVSUBNG4833-62-05 09:17:00 Test Item Value Reference Range Interpretation Comments MCV (test code = MCV) 94.0 80.0-98.0 [facility] PasoUxsrjceNETHNLYSUP7391-38-78 09:17:00 Test Item Value Reference Range Interpretation Comments MCH (test code = MCH) 30.8 pg 27.0-31.0 [facility] PasoQlqneslOSPYCMVSAZ6724-14-84 09:17:00 Test Item Value Reference Range Interpretation Comments RDW (test code = RDW) 13.5 11.5-14.5 [facility] PasoYnbmvdsRXELQYUKBN0389-59-03 09:17:00 Test Item Value Reference Range Interpretation Comments MPV (test code = MPV) 9.6 7.4-10.4 [facility]2016-07-30 09:17:00 Test Item Value Reference Range Interpretation Comments eGFR (test code = eGFR) 81 [facility]2016-07-30 09:17:00 Test Item Value Reference Range Interpretation Comments Creatinine Lvl (test code = Creatinine 0.73 0.50-1.40 Lvl) [facility]2016-07-30 09:17:00 Test Item Value Reference Range Interpretation Comments AST (test code = AST) 7 <=37 [facility]2016-07-30 09:17:00 Test Item Value Reference Range Interpretation Comments Total Protein (test code = Total 5.0 6.4-8.4 Protein) [facility]2016-07-30 09:17:00 Test Item Value Reference Range Interpretation Comments Alk Phos (test code = Alk Phos) 73 39-136 [facility]2016-07-30 09:17:00 Test Item Value Reference Range Interpretation Comments ALT (test code = ALT) 29 <=65 [facility]2016-07-30 09:17:00 Test Item Value Reference Range Interpretation Comments Bili Total (test code = Bili Total) 0.7 0.2-1.3 [facility]2016-07-30 09:17:00 Test Item Value Reference Range Interpretation Comments Albumin Lvl (test code = Albumin Lvl) 2.7 3.5-5.0 [facility]2016-07-30 09:17:00 Test Item Value Reference Range Interpretation Comments AGAP (test code = AGAP) 10.9 10.0-20.0 [facility]2016-07-30 09:17:00 Test Item Value Reference Range Interpretation Comments Calcium Lvl (test code = Calcium Lvl) 10.0 8.5-10.5 [facility]2016-07-30 09:17:00 Test Item Value Reference Range Interpretation Comments Glucose Lvl (test code = Glucose Lvl) 208 70-99 [facility]2016-07-30 09:17:00 Test Item Value Reference Range Interpretation Comments Potassium Lvl (test code = Potassium 3.9 3.5-5.1 Lvl) [facility]2016-07-30 09:17:00 Test Item Value Reference Range Interpretation Comments BUN (test code = BUN) 20 7-22 [facility]2016-07-30 09:17:00 Test Item Value Reference Range Interpretation Comments Sodium Lvl (test code = Sodium Lvl) 145 135-145 [facility]2016-07-30 09:17:00 Test Item Value Reference Range Interpretation Comments Chloride Lvl (test code = Chloride Lvl) 109 95-109 [facility]2016-07-30 09:17:00 Test Item Value Reference Range Interpretation Comments CO2 (test code = CO2) 29 24-32 [facility]2016-07-30 09:17:00 Test Item Value Reference Range Interpretation Comments B/C Ratio (test code = B/C Ratio) 27 6-25 [facility]2016-07-30 09:17:00 Test Item Value Reference Range Interpretation Comments A/G Ratio (test code = A/G Ratio) 1.2 0.7-1.6 [facility]2016-07-30 09:17:00 Test Item Value Reference Range Interpretation Comments Globulin (test code = Globulin) 2.3 2.0-4.0 [facility] PasoEulerdnUTOXWYYTMZ8167-49-29 09:17:00 Test Item Value Reference Range Interpretation Comments Monocytes (test code = Monocytes) 11.7 2.0-12.0 [facility] PasoYwuwigeJCNRIFDBHQ9674-15-75 09:17:00 Test Item Value Reference Range Interpretation Comments Segs-Bands # (test code = Segs-Bands #) 4.9 1.5-8.1 [facility] PasoUkqkgsuJHYBIGRWBU9662-96-27 09:17:00 Test Item Value Reference Range Interpretation Comments Basophils (test code = Basophils) 0.4 <=1.0 [facility] PasoHnngyadCJDGKXKJOE9236-07-82 09:17:00 Test Item Value Reference Range Interpretation Comments Lymphocytes # (test code = Lymphocytes 1.3 1.0-5.5 #) [facility] PasoDxgaurrEIXJVPSPMP6573-61-13 09:17:00 Test Item Value Reference Range Interpretation Comments Macrocyte (test code = 1+ *ABN*(01/15/16 Macrocyte) 4:17 AM) [facility] PasoMiaqizdYYXFJSYPDO7003-03-75 09:17:00 Test Item Value Reference Range Interpretation Comments Segs (test code = Segs) 67.7 45.0-75.0 [facility] PasoTefzrupLSHFQNRNEM6672-25-34 09:17:00 Test Item Value Reference Range Interpretation Comments Lymphocytes (test code = Lymphocytes) 17.4 20.0-40.0 [facility] PasoGfncuabPTEWBDBJJU0783-54-09 09:17:00 Test Item Value Reference Range Interpretation Comments Eosinophils (test code = Eosinophils) 2.8 <=4.0 [facility] PasoCcqifzlFMGSROFLDL3498-63-62 09:17:00 Test Item Value Reference Range Interpretation Comments Basophils # (test code = Basophils #) 0.0 <=0.2 [facility] PasoKptuwuqONJEOIYPLS9278-94-56 09:17:00 Test Item Value Reference Range Interpretation Comments Eosinophils # (test code = Eosinophils 0.2 <=0.5 #) [facility] PasoSpkzldcKFOXMTOJQJ1459-19-74 09:17:00 Test Item Value Reference Range Interpretation Comments Monocytes # (test code = Monocytes #) 0.9 <=0.8 [facility] PasoFsavkuuGLOFEYHXAF1353-80-07 09:17:00 Test Item Value Reference Range Interpretation Comments Platelet (test code = Platelet) 149 133-450 [facility] PasoAwdrgzcRWVWYDHEJV4210-26-81 09:17:00 Test Item Value Reference Range Interpretation Comments WBC (test code = WBC) 7.3 3.7-10.4 [facility] PasoQwirizoTVQEHQNVGA3826-21-75 09:17:00 Test Item Value Reference Range Interpretation Comments Hct (test code = Hct) 39.8 36.0-48.0 [facility] PasoLotqzgfTDDGRVZYZT5241-28-18 09:17:00 Test Item Value Reference Range Interpretation Comments Hgb (test code = Hgb) 13.0 12.0-16.0 [facility] PasoBhmhfgjBXZCVMFQFO2014-01-49 09:17:00 Test Item Value Reference Range Interpretation Comments RBC (test code = RBC) 4.23 4.20-5.40 [facility] PasoLzpmgqjHGCPBNNCDZ9563-13-13 09:17:00 Test Item Value Reference Range Interpretation Comments MCHC (test code = MCHC) 32.8 32.0-36.0 [facility] PasoCywekwwKSGTHQUXRM5700-43-40 09:17:00 Test Item Value Reference Range Interpretation Comments MCV (test code = MCV) 94.0 80.0-98.0 [facility] PasoVcewbjkFEQNPDLYXD4808-03-50 09:17:00 Test Item Value Reference Range Interpretation Comments MCH (test code = MCH) 30.8 pg 27.0-31.0 [facility] PasoNnhnyznYHJUQSVWKZ4011-37-73 09:17:00 Test Item Value Reference Range Interpretation Comments RDW (test code = RDW) 13.5 11.5-14.5 [facility] PasoZfxaeriVEBFYQFQTW2634-26-03 09:17:00 Test Item Value Reference Range Interpretation Comments MPV (test code = MPV) 9.6 7.4-10.4 [facility]2016-07-30 09:17:00 Test Item Value Reference Range Interpretation Comments eGFR (test code = eGFR) 81 [facility]2016-07-30 09:17:00 Test Item Value Reference Range Interpretation Comments Creatinine Lvl (test code = Creatinine 0.73 0.50-1.40 Lvl) [facility]2016-07-30 09:17:00 Test Item Value Reference Range Interpretation Comments AST (test code = AST) 7 <=37 [facility]2016-07-30 09:17:00 Test Item Value Reference Range Interpretation Comments Total Protein (test code = Total 5.0 6.4-8.4 Protein) [facility]2016-07-30 09:17:00 Test Item Value Reference Range Interpretation Comments Alk Phos (test code = Alk Phos) 73 39-136 [facility]2016-07-30 09:17:00 Test Item Value Reference Range Interpretation Comments ALT (test code = ALT) 29 <=65 [facility]2016-07-30 09:17:00 Test Item Value Reference Range Interpretation Comments Bili Total (test code = Bili Total) 0.7 0.2-1.3 [facility]2016-07-30 09:17:00 Test Item Value Reference Range Interpretation Comments Albumin Lvl (test code = Albumin Lvl) 2.7 3.5-5.0 [facility]2016-07-30 09:17:00 Test Item Value Reference Range Interpretation Comments AGAP (test code = AGAP) 10.9 10.0-20.0 [facility]2016-07-30 09:17:00 Test Item Value Reference Range Interpretation Comments Calcium Lvl (test code = Calcium Lvl) 10.0 8.5-10.5 [facility]2016-07-30 09:17:00 Test Item Value Reference Range Interpretation Comments Glucose Lvl (test code = Glucose Lvl) 208 70-99 [facility]2016-07-30 09:17:00 Test Item Value Reference Range Interpretation Comments Potassium Lvl (test code = Potassium 3.9 3.5-5.1 Lvl) [facility]2016-07-30 09:17:00 Test Item Value Reference Range Interpretation Comments BUN (test code = BUN) 20 7-22 [facility]2016-07-30 09:17:00 Test Item Value Reference Range Interpretation Comments Sodium Lvl (test code = Sodium Lvl) 145 135-145 [facility]2016-07-30 09:17:00 Test Item Value Reference Range Interpretation Comments Chloride Lvl (test code = Chloride Lvl) 109 95-109 [facility]2016-07-30 09:17:00 Test Item Value Reference Range Interpretation Comments CO2 (test code = CO2) 29 24-32 [facility]2016-07-30 09:17:00 Test Item Value Reference Range Interpretation Comments B/C Ratio (test code = B/C Ratio) 27 6-25 [facility]2016-07-30 09:17:00 Test Item Value Reference Range Interpretation Comments A/G Ratio (test code = A/G Ratio) 1.2 0.7-1.6 [facility]2016-07-30 09:17:00 Test Item Value Reference Range Interpretation Comments Globulin (test code = Globulin) 2.3 2.0-4.0 [facility] PasoMckyqzoHKQELWHHUE2823-44-18 09:17:00 Test Item Value Reference Range Interpretation Comments Monocytes (test code = Monocytes) 11.7 2.0-12.0 [facility] PasoKyxoszoYVKYUTJBGA8922-96-62 09:17:00 Test Item Value Reference Range Interpretation Comments Segs-Bands # (test code = Segs-Bands #) 4.9 1.5-8.1 [facility] PasoOfqbnpePCVPRFIIEC0118-45-24 09:17:00 Test Item Value Reference Range Interpretation Comments Basophils (test code = Basophils) 0.4 <=1.0 [facility] PasoElgljkiXXVKUAEZQO8417-98-64 09:17:00 Test Item Value Reference Range Interpretation Comments Lymphocytes # (test code = Lymphocytes 1.3 1.0-5.5 #) [facility] PasoAdwdfunYFGBIUSWGV6912-08-12 09:17:00 Test Item Value Reference Range Interpretation Comments Macrocyte (test code = 1+ *ABN*(01/15/16 Macrocyte) 4:17 AM) [facility] PasoZrwlzbdQPOXNOQCGE0721-58-58 09:17:00 Test Item Value Reference Range Interpretation Comments Segs (test code = Segs) 67.7 45.0-75.0 [facility] PasoRfthgidNOSZCORCTA5535-52-84 09:17:00 Test Item Value Reference Range Interpretation Comments Lymphocytes (test code = Lymphocytes) 17.4 20.0-40.0 [facility] PasoHibqeloDOSRYXHYIF4829-76-58 09:17:00 Test Item Value Reference Range Interpretation Comments Eosinophils (test code = Eosinophils) 2.8 <=4.0 [facility] PasoMjlplljVAZQPBVHEX9256-14-96 09:17:00 Test Item Value Reference Range Interpretation Comments Basophils # (test code = Basophils #) 0.0 <=0.2 [facility] PasoKcqscsaVROSJLLDOX3815-53-55 09:17:00 Test Item Value Reference Range Interpretation Comments Eosinophils # (test code = Eosinophils 0.2 <=0.5 #) [facility] PasoWeokrynYBOOHGPAKM9622-98-06 09:17:00 Test Item Value Reference Range Interpretation Comments Monocytes # (test code = Monocytes #) 0.9 <=0.8 [facility] PasoDfjmweaDAXNRYNLVC0873-85-75 09:17:00 Test Item Value Reference Range Interpretation Comments Platelet (test code = Platelet) 149 133-450 [facility] PasoZsyyllrHKJRPCYWZJ5124-91-31 09:17:00 Test Item Value Reference Range Interpretation Comments WBC (test code = WBC) 7.3 3.7-10.4 [facility]2016-07-30 09:17:00 Test Item Value Reference Range Interpretation Comments eGFR (test code = eGFR) 81 [facility] PasoQwmhodiOAYFXDQFJY0547-02-87 09:17:00 Test Item Value Reference Range Interpretation Comments Hct (test code = Hct) 39.8 36.0-48.0 [facility] PasoLcmfiswIWUHUQGUDF6805-91-82 09:17:00 Test Item Value Reference Range Interpretation Comments Hgb (test code = Hgb) 13.0 12.0-16.0 [facility] PasoTtvblrfRTWALIGSIQ0074-26-17 09:17:00 Test Item Value Reference Range Interpretation Comments RBC (test code = RBC) 4.23 4.20-5.40 [facility] PasoEhzhhsyIWKBZJMJMN3556-27-78 09:17:00 Test Item Value Reference Range Interpretation Comments MCHC (test code = MCHC) 32.8 32.0-36.0 [facility] PasoXlczcmjSQWCDKEJSG1941 09:17:00 Test Item Value Reference Range Interpretation Comments MCV (test code = MCV) 94.0 80.0-98.0 [facility] PasoErjtwlsJGBKELYZRN7424-20-98 09:17:00 Test Item Value Reference Range Interpretation Comments MCH (test code = MCH) 30.8 pg 27.0-31.0 [facility] PasoMbjuvpaFZVQUUFQSB2483-57-30 09:17:00 Test Item Value Reference Range Interpretation Comments RDW (test code = RDW) 13.5 11.5-14.5 [facility] PasoXgyyacuYNONIQCDBM5984-97-16 09:17:00 Test Item Value Reference Range Interpretation Comments MPV (test code = MPV) 9.6 7.4-10.4 [facility]2016-07-30 09:17:00 Test Item Value Reference Range Interpretation Comments Creatinine Lvl (test code = Creatinine 0.73 0.50-1.40 Lvl) [facility]2016-07-30 09:17:00 Test Item Value Reference Range Interpretation Comments AST (test code = AST) 7 See_Comment [Auto mated message] The system which ge nerated this result transmit juan reference range : <=37. The reference range was not used to interpr et this result as polina l/abnormal. [facility]2016-07-30 09:17:00 Test Item Value Reference Range Interpretation Comments Total Protein (test code = Total 5.0 6.4-8.4 Protein) [facility]2016-07-30 09:17:00 Test Item Value Reference Range Interpretation Comments Alk Phos (test code = Alk Phos) 73 39-136 [facility]2016-07-30 09:17:00 Test Item Value Reference Range Interpretation Comments ALT (test code = ALT) 29 See_Comment [Auto mated message] The system which ge nerated this result transmit juan reference range : <=65. The reference range was not used to interpr et this result as polina l/abnormal. [facility]2016-07-30 09:17:00 Test Item Value Reference Range Interpretation Comments Bili Total (test code = Bili Total) 0.7 0.2-1.3 [facility]2016-07-30 09:17:00 Test Item Value Reference Range Interpretation Comments Albumin Lvl (test code = Albumin Lvl) 2.7 3.5-5.0 [facility]2016-07-30 09:17:00 Test Item Value Reference Range Interpretation Comments AGAP (test code = AGAP) 10.9 10.0-20.0 [facility]2016-07-30 09:17:00 Test Item Value Reference Range Interpretation Comments Calcium Lvl (test code = Calcium Lvl) 10.0 8.5-10.5 [facility]2016-07-30 09:17:00 Test Item Value Reference Range Interpretation Comments Glucose Lvl (test code = Glucose Lvl) 208 70-99 [facility]2016-07-30 09:17:00 Test Item Value Reference Range Interpretation Comments Potassium Lvl (test code = Potassium 3.9 3.5-5.1 Lvl) [facility]2016-07-30 09:17:00 Test Item Value Reference Range Interpretation Comments BUN (test code = BUN) 20 7-22 [facility]2016-07-30 09:17:00 Test Item Value Reference Range Interpretation Comments Sodium Lvl (test code = Sodium Lvl) 145 135-145 [facility]2016-07-30 09:17:00 Test Item Value Reference Range Interpretation Comments Chloride Lvl (test code = Chloride Lvl) 109 95-109 [facility]2016-07-30 09:17:00 Test Item Value Reference Range Interpretation Comments CO2 (test code = CO2) 29 24-32 [facility]2016-07-30 09:17:00 Test Item Value Reference Range Interpretation Comments B/C Ratio (test code = B/C Ratio) 27 6-25 [facility]2016-07-30 09:17:00 Test Item Value Reference Range Interpretation Comments A/G Ratio (test code = A/G Ratio) 1.2 0.7-1.6 [facility]2016-07-30 09:17:00 Test Item Value Reference Range Interpretation Comments Globulin (test code = Globulin) 2.3 2.0-4.0 [facility] PasoSniooriALNNEQYIKX4652-00-84 09:17:00 Test Item Value Reference Range Interpretation Comments Monocytes (test code = Monocytes) 11.7 2.0-12.0 [facility] PasoCnrkuuuDUMLIZYPDH6176-39-51 09:17:00 Test Item Value Reference Range Interpretation Comments Segs-Bands # (test code = Segs-Bands #) 4.9 1.5-8.1 [facility] PasoVqjehwyNANILUYOWQ9095-86-42 09:17:00 Test Item Value Reference Range Interpretation Comments Basophils (test code = 0.4 See_Comment [Aut omated message] The Basophils) system which ge nerated this result tra nsmitted reference range : <=1.0. The reference r leatha was not used to int erpret this result as normal/abnormal . [facility] PasoVwspmgzWBQUSAZYJQ2402-71-94 09:17:00 Test Item Value Reference Range Interpretation Comments Lymphocytes # (test code = Lymphocytes 1.3 1.0-5.5 #) [facility] PasoAxthzkfSBINFXOIQX6420-95-21 09:17:00 Test Item Value Reference Range Interpretation Comments Macrocyte (test code = 1+ *ABN*(7/30/16 Macrocyte) 4:17 AM) [facility] PasoPfrlbmnQIWUYGJWCL4329-11-03 09:17:00 Test Item Value Reference Range Interpretation Comments Segs (test code = Segs) 67.7 45.0-75.0 [facility] PasoLphnkcgSTSTPJFDQE3982-99-21 09:17:00 Test Item Value Reference Range Interpretation Comments Lymphocytes (test code = Lymphocytes) 17.4 20.0-40.0 [facility] PasoDiajkefFODMUJSUAF8086-69-21 09:17:00 Test Item Value Reference Range Interpretation Comments Eosinophils (test code = 2.8 See_Comment [A utomated message] The Eosinophils) system which ge nerated this result tra nsmitted reference range : <=4.0. The reference r leatha was not used to int erpret this result as normal/abnormal . [facility] PasoCofsrtvTZFHVKCOQD6432-05-48 09:17:00 Test Item Value Reference Range Interpretation Comments Basophils # (test code 0.0 See_Comment [Aut omated message] The = Basophils #) system which generated this result tra nsmitted reference range : <=0.2. The reference r leatha was not used to int erpret this result as normal/abnormal . [facility] PasoWmzmokmESGJIKSKUV4086-96-86 09:17:00 Test Item Value Reference Range Interpretation Comments Eosinophils # (test code 0.2 See_Comment [A utomated message] The = Eosinophils #) system whic h generated this result tra nsmitted reference range : <=0.5. The reference r leatha was not used to int erpret this result as normal/abnormal . [facility] PasoWsavjtgAKLPOLWSCN7231-87-05 09:17:00 Test Item Value Reference Range Interpretation Comments Monocytes # (test code 0.9 See_Comment [Aut omated message] The = Monocytes #) system which generated this result tra nsmitted reference range : <=0.8. The reference r leatha was not used to int erpret this result as normal/abnormal . [facility] PasoVuluwzwWPZQEFIZLQ3902-84-97 09:17:00 Test Item Value Reference Range Interpretation Comments Platelet (test code = Platelet) 149 133-450 [facility] PasoVsohepbKNLIBYYPPS1779-57-27 09:17:00 Test Item Value Reference Range Interpretation Comments WBC (test code = WBC) 7.3 3.7-10.4 [facility] PasoTqvmriuMUDOKUOIFG8517-55-02 09:17:00 Test Item Value Reference Range Interpretation Comments Hct (test code = Hct) 39.8 36.0-48.0 [facility] PasoFuklwdnPKOZZVBFWF4996-89-18 09:17:00 Test Item Value Reference Range Interpretation Comments Hgb (test code = Hgb) 13.0 12.0-16.0 [facility] PasoNlkacopGMGUKQRWUD7051-62-68 09:17:00 Test Item Value Reference Range Interpretation Comments RBC (test code = RBC) 4.23 4.20-5.40 [facility] PasoQslhzldBLIUMFBJSP1871-69-72 09:17:00 Test Item Value Reference Range Interpretation Comments MCHC (test code = MCHC) 32.8 32.0-36.0 [facility] PasoPgetckiTOOKMIFGZA4562-94-69 09:17:00 Test Item Value Reference Range Interpretation Comments MCV (test code = MCV) 94.0 80.0-98.0 [facility] PasoCzgkeqaNEXSFFMWUH4316-18-77 09:17:00 Test Item Value Reference Range Interpretation Comments MCH (test code = MCH) 30.8 pg 27.0-31.0 [facility] PasoUydjnthJXNDIOYMTS2670-42-97 09:17:00 Test Item Value Reference Range Interpretation Comments RDW (test code = RDW) 13.5 11.5-14.5 [facility] PasoOgplaksXOHGRKLZWC4766-04-52 09:17:00 Test Item Value Reference Range Interpretation Comments MPV (test code = MPV) 9.6 7.4-10.4 [facility]2016-07-30 09:17:00 Test Item Value Reference Range Interpretation Comments eGFR (test code = eGFR) 81 [facility]2016-07-30 09:17:00 Test Item Value Reference Range Interpretation Comments Creatinine Lvl (test code = Creatinine 0.73 0.50-1.40 Lvl) [facility]2016-07-30 09:17:00 Test Item Value Reference Range Interpretation Comments AST (test code = AST) 7 <=37 [facility]2016-07-30 09:17:00 Test Item Value Reference Range Interpretation Comments Total Protein (test code = Total 5.0 6.4-8.4 Protein) [facility]2016-07-30 09:17:00 Test Item Value Reference Range Interpretation Comments Alk Phos (test code = Alk Phos) 73 39-136 [facility]2016-07-30 09:17:00 Test Item Value Reference Range Interpretation Comments ALT (test code = ALT) 29 <=65 [facility]2016-07-30 09:17:00 Test Item Value Reference Range Interpretation Comments Bili Total (test code = Bili Total) 0.7 0.2-1.3 [facility]2016-07-30 09:17:00 Test Item Value Reference Range Interpretation Comments Albumin Lvl (test code = Albumin Lvl) 2.7 3.5-5.0 [facility]2016-07-30 09:17:00 Test Item Value Reference Range Interpretation Comments AGAP (test code = AGAP) 10.9 10.0-20.0 [facility]2016-07-30 09:17:00 Test Item Value Reference Range Interpretation Comments Calcium Lvl (test code = Calcium Lvl) 10.0 8.5-10.5 [facility]2016-07-30 09:17:00 Test Item Value Reference Range Interpretation Comments Glucose Lvl (test code = Glucose Lvl) 208 70-99 [facility]2016-07-30 09:17:00 Test Item Value Reference Range Interpretation Comments Potassium Lvl (test code = Potassium 3.9 3.5-5.1 Lvl) [facility]2016-07-30 09:17:00 Test Item Value Reference Range Interpretation Comments BUN (test code = BUN) 20 7-22 [facility]2016-07-30 09:17:00 Test Item Value Reference Range Interpretation Comments Sodium Lvl (test code = Sodium Lvl) 145 135-145 [facility]2016-07-30 09:17:00 Test Item Value Reference Range Interpretation Comments Chloride Lvl (test code = Chloride Lvl) 109 95-109 [facility]2016-07-30 09:17:00 Test Item Value Reference Range Interpretation Comments CO2 (test code = CO2) 29 24-32 [facility]2016-07-30 09:17:00 Test Item Value Reference Range Interpretation Comments B/C Ratio (test code = B/C Ratio) 27 6-25 [facility]2016-07-30 09:17:00 Test Item Value Reference Range Interpretation Comments A/G Ratio (test code = A/G Ratio) 1.2 0.7-1.6 [facility]2016-07-30 09:17:00 Test Item Value Reference Range Interpretation Comments Globulin (test code = Globulin) 2.3 2.0-4.0 [facility] PasoCmzwwmoVRQCTPLDSC2868-50-27 09:17:00 Test Item Value Reference Range Interpretation Comments Monocytes (test code = Monocytes) 11.7 2.0-12.0 [facility] PasoMjxntouDVYGMXVHZO4781-30-82 09:17:00 Test Item Value Reference Range Interpretation Comments Segs-Bands # (test code = Segs-Bands #) 4.9 1.5-8.1 [facility] PasoBezfdhcVEHXZEINYE2240-08-06 09:17:00 Test Item Value Reference Range Interpretation Comments Basophils (test code = Basophils) 0.4 <=1.0 [facility] PasoNbdxtkwYVVOQKDDOZ3318-01-41 09:17:00 Test Item Value Reference Range Interpretation Comments Lymphocytes # (test code = Lymphocytes 1.3 1.0-5.5 #) [facility] PasoFenemauGKCPJAUANM5920-05-10 09:17:00 Test Item Value Reference Range Interpretation Comments Macrocyte (test code = 1+ *ABN*(01/15/16 Macrocyte) 4:17 AM) [facility] PasoPwmzwmuSKULTWZQPQ9945-06-38 09:17:00 Test Item Value Reference Range Interpretation Comments Segs (test code = Segs) 67.7 45.0-75.0 [facility] PasoAowuqycPJXNOTRLZE3815-85-48 09:17:00 Test Item Value Reference Range Interpretation Comments Lymphocytes (test code = Lymphocytes) 17.4 20.0-40.0 [facility] PasoDtktkonUYOFNTSCRC5532-80-23 09:17:00 Test Item Value Reference Range Interpretation Comments Eosinophils (test code = Eosinophils) 2.8 <=4.0 [facility] PasoOyqkydrILZMNZLFVA0387-55-42 09:17:00 Test Item Value Reference Range Interpretation Comments Basophils # (test code = Basophils #) 0.0 <=0.2 [facility] PasoImkrdsgPIVUHZIZVG0578-70-48 09:17:00 Test Item Value Reference Range Interpretation Comments Eosinophils # (test code = Eosinophils 0.2 <=0.5 #) [facility] PasoHgkcqxyMYUBMUTSSE4541-15-09 09:17:00 Test Item Value Reference Range Interpretation Comments Monocytes # (test code = Monocytes #) 0.9 <=0.8 [facility] PasoKpawafiPUBSFPLIHG4842-78-95 09:17:00 Test Item Value Reference Range Interpretation Comments Platelet (test code = Platelet) 149 133-450 [facility] PasoLrfqamkWYKIOTOGFA2311-02-42 09:17:00 Test Item Value Reference Range Interpretation Comments WBC (test code = WBC) 7.3 3.7-10.4 [facility] PasoAwaiqhvPYYIWISASV4801-50-98 09:17:00 Test Item Value Reference Range Interpretation Comments Hct (test code = Hct) 39.8 36.0-48.0 [facility] PasoOncinkiCBAIYPPLIS0294-45-03 09:17:00 Test Item Value Reference Range Interpretation Comments Hgb (test code = Hgb) 13.0 12.0-16.0 [facility] PasoLbduwilOBXMVQDKAG9648-74-94 09:17:00 Test Item Value Reference Range Interpretation Comments RBC (test code = RBC) 4.23 4.20-5.40 [facility] PasoXkglkjwFIIELIJYUQ6258-22-26 09:17:00 Test Item Value Reference Range Interpretation Comments MCHC (test code = MCHC) 32.8 32.0-36.0 [facility] PasoGflodrnAWRMHQGJJO3784-17-86 09:17:00 Test Item Value Reference Range Interpretation Comments MCV (test code = MCV) 94.0 80.0-98.0 [facility] PasoOkespzyAPCHMFGFCQ4852-50-23 09:17:00 Test Item Value Reference Range Interpretation Comments MCH (test code = MCH) 30.8 pg 27.0-31.0 [facility] PasoHbzebmiRCDDUMUXFT8008-21-01 09:17:00 Test Item Value Reference Range Interpretation Comments RDW (test code = RDW) 13.5 11.5-14.5 [facility] PasoOcbkcruMSEFDGTQXI8664-57-77 09:17:00 Test Item Value Reference Range Interpretation Comments MPV (test code = MPV) 9.6 7.4-10.4 [facility]2016-07-29 10:06:00 Test Item Value Reference Range Interpretation Comments Glucose Lvl (test code = Glucose Lvl) 133 70-99 [facility]2016-07-29 10:06:00 Test Item Value Reference Range Interpretation Comments BUN (test code = BUN) 15 7-22 [place] 257186-07-29 10:06:00 Test Item Value Reference Range Interpretation Comments AGAP (test code = AGAP) 11.7 10.0-20.0 [facility]2016-07-29 10:06:00 Test Item Value Reference Range Interpretation Comments Calcium Lvl (test code = Calcium Lvl) 10.1 8.5-10.5 [facility]2016-07-29 10:06:00 Test Item Value Reference Range Interpretation Comments Potassium Lvl (test code = Potassium 3.7 3.5-5.1 Lvl) [facility]2016-07-29 10:06:00 Test Item Value Reference Range Interpretation Comments Sodium Lvl (test code = Sodium Lvl) 145 135-145 [facility]2016-07-29 10:06:00 Test Item Value Reference Range Interpretation Comments CO2 (test code = CO2) 28 24-32 [facility]2016-07-29 10:06:00 Test Item Value Reference Range Interpretation Comments Chloride Lvl (test code = Chloride Lvl) 109 95-109 [facility]2016-07-29 10:06:00 Test Item Value Reference Range Interpretation Comments Creatinine Lvl (test code = Creatinine 0.70 0.50-1.40 Lvl) [facility]2016-07-29 10:06:00 Test Item Value Reference Range Interpretation Comments eGFR (test code = eGFR) 86 [facility]2016-07-29 10:06:00 Test Item Value Reference Range Interpretation Comments Glucose Lvl (test code = Glucose Lvl) 133 70-99 [facility]2016-07-29 10:06:00 Test Item Value Reference Range Interpretation Comments BUN (test code = BUN) 15 7-22 [facility]2016-07-29 10:06:00 Test Item Value Reference Range Interpretation Comments AGAP (test code = AGAP) 11.7 10.0-20.0 [facility]2016-07-29 10:06:00 Test Item Value Reference Range Interpretation Comments Calcium Lvl (test code = Calcium Lvl) 10.1 8.5-10.5 [facility]2016-07-29 10:06:00 Test Item Value Reference Range Interpretation Comments Potassium Lvl (test code = Potassium 3.7 3.5-5.1 Lvl) [facility]2016-07-29 10:06:00 Test Item Value Reference Range Interpretation Comments Sodium Lvl (test code = Sodium Lvl) 145 135-145 [facility]2016-07-29 10:06:00 Test Item Value Reference Range Interpretation Comments CO2 (test code = CO2) [facility]2016-07-29 10:06:00 Test Item Value Reference Range Interpretation Comments Chloride Lvl (test code = Chloride Lvl) 109 95-109 [facility]2016-07-29 10:06:00 Test Item Value Reference Range Interpretation Comments Creatinine Lvl (test code = Creatinine 0.70 0.50-1.40 Lvl) [facility]2016-07-29 10:06:00 Test Item Value Reference Range Interpretation Comments eGFR (test code = eGFR) 86 [facility]2016-07-29 10:06:00 Test Item Value Reference Range Interpretation Comments Glucose Lvl (test code = Glucose Lvl) 133 70-99 [facility]2016-07-29 10:06:00 Test Item Value Reference Range Interpretation Comments BUN (test code = BUN) 15 7-22 [facility]2016-07-29 10:06:00 Test Item Value Reference Range Interpretation Comments AGAP (test code = AGAP) 11.7 10.0-20.0 [facility]2016-07-29 10:06:00 Test Item Value Reference Range Interpretation Comments Calcium Lvl (test code = Calcium Lvl) 10.1 8.5-10.5 [facility]2016-07-29 10:06:00 Test Item Value Reference Range Interpretation Comments Potassium Lvl (test code = Potassium 3.7 3.5-5.1 Lvl) [facility]2016-07-29 10:06:00 Test Item Value Reference Range Interpretation Comments Sodium Lvl (test code = Sodium Lvl) 145 135-145 [facility]2016-07-29 10:06:00 Test Item Value Reference Range Interpretation Comments CO2 (test code = CO2) -32 [facility]2016-07-29 10:06:00 Test Item Value Reference Range Interpretation Comments Chloride Lvl (test code = Chloride Lvl) 109 95-109 [facility]2016-07-29 10:06:00 Test Item Value Reference Range Interpretation Comments Creatinine Lvl (test code = Creatinine 0.70 0.50-1.40 Lvl) [facility]2016-07-29 10:06:00 Test Item Value Reference Range Interpretation Comments eGFR (test code = eGFR) 86 [facility]2016-07-29 10:06:00 Test Item Value Reference Range Interpretation Comments Glucose Lvl (test code = Glucose Lvl) 133 70-99 [facility]2016-07-29 10:06:00 Test Item Value Reference Range Interpretation Comments BUN (test code = BUN) 15 7-22 [facility]2016-07-29 10:06:00 Test Item Value Reference Range Interpretation Comments AGAP (test code = AGAP) 11.7 10.0-20.0 [facility]2016-07-29 10:06:00 Test Item Value Reference Range Interpretation Comments Calcium Lvl (test code = Calcium Lvl) 10.1 8.5-10.5 [facility]2016-07-29 10:06:00 Test Item Value Reference Range Interpretation Comments Potassium Lvl (test code = Potassium 3.7 3.5-5.1 Lvl) [facility]2016-07-29 10:06:00 Test Item Value Reference Range Interpretation Comments Sodium Lvl (test code = Sodium Lvl) 145 135-145 [facility]2016-07-29 10:06:00 Test Item Value Reference Range Interpretation Comments CO2 (test code = CO2) 28 24-32 [facility]2016-07-29 10:06:00 Test Item Value Reference Range Interpretation Comments Chloride Lvl (test code = Chloride Lvl) 109 95-109 [facility]2016-07-29 10:06:00 Test Item Value Reference Range Interpretation Comments Creatinine Lvl (test code = Creatinine 0.70 0.50-1.40 Lvl) [facility]2016-07-29 10:06:00 Test Item Value Reference Range Interpretation Comments eGFR (test code = eGFR) 86 [facility]2016-07-29 10:06:00 Test Item Value Reference Range Interpretation Comments Glucose Lvl (test code = Glucose Lvl) 133 70-99 [facility]2016-07-29 10:06:00 Test Item Value Reference Range Interpretation Comments BUN (test code = BUN) 15 01-06 [facility]2016-07-29 10:06:00 Test Item Value Reference Range Interpretation Comments AGAP (test code = AGAP) 11.7 10.0-20.0 [facility]2016-07-29 10:06:00 Test Item Value Reference Range Interpretation Comments Calcium Lvl (test code = Calcium Lvl) 10.1 8.5-10.5 [facility]2016-07-29 10:06:00 Test Item Value Reference Range Interpretation Comments Potassium Lvl (test code = Potassium 3.7 3.5-5.1 Lvl) [facility]2016-07-29 10:06:00 Test Item Value Reference Range Interpretation Comments Sodium Lvl (test code = Sodium Lvl) 145 135-145 [facility]2016-07-29 10:06:00 Test Item Value Reference Range Interpretation Comments CO2 (test code = CO2) 28 24-32 [facility]2016-07-29 10:06:00 Test Item Value Reference Range Interpretation Comments Chloride Lvl (test code = Chloride Lvl) 109 95-109 [facility]2016-07-29 10:06:00 Test Item Value Reference Range Interpretation Comments Creatinine Lvl (test code = Creatinine 0.70 0.50-1.40 Lvl) [facility]2016-07-29 10:06:00 Test Item Value Reference Range Interpretation Comments eGFR (test code = eGFR) 86 [facility]2016-07-29 10:06:00 Test Item Value Reference Range Interpretation Comments Glucose Lvl (test code = Glucose Lvl) 133 70-99 [facility]2016-07-29 10:06:00 Test Item Value Reference Range Interpretation Comments BUN (test code = BUN) 15 01-06 [facility]2016-07-29 10:06:00 Test Item Value Reference Range Interpretation Comments AGAP (test code = AGAP) 11.7 10.0-20.0 [facility]2016-07-29 10:06:00 Test Item Value Reference Range Interpretation Comments Calcium Lvl (test code = Calcium Lvl) 10.1 8.5-10.5 [facility]2016-07-29 10:06:00 Test Item Value Reference Range Interpretation Comments Potassium Lvl (test code = Potassium 3.7 3.5-5.1 Lvl) [facility]2016-07-29 10:06:00 Test Item Value Reference Range Interpretation Comments Sodium Lvl (test code = Sodium Lvl) 145 135-145 [facility]2016-07-29 10:06:00 Test Item Value Reference Range Interpretation Comments CO2 (test code = CO2) 28 24-32 [facility]2016-07-29 10:06:00 Test Item Value Reference Range Interpretation Comments Chloride Lvl (test code = Chloride Lvl) 109 95-109 [facility]2016-07-29 10:06:00 Test Item Value Reference Range Interpretation Comments Creatinine Lvl (test code = Creatinine 0.70 0.50-1.40 Lvl) [facility]2016-07-29 10:06:00 Test Item Value Reference Range Interpretation Comments eGFR (test code = eGFR) 86 [facility]2016-07-29 10:06:00 Test Item Value Reference Range Interpretation Comments Glucose Lvl (test code = Glucose Lvl) 133 70-99 [facility]2016-07-29 10:06:00 Test Item Value Reference Range Interpretation Comments BUN (test code = BUN) 15 7-22 [facility]2016-07-29 10:06:00 Test Item Value Reference Range Interpretation Comments AGAP (test code = AGAP) 11.7 10.0-20.0 [facility]2016-07-29 10:06:00 Test Item Value Reference Range Interpretation Comments Calcium Lvl (test code = Calcium Lvl) 10.1 8.5-10.5 [facility]2016-07-29 10:06:00 Test Item Value Reference Range Interpretation Comments Potassium Lvl (test code = Potassium 3.7 3.5-5.1 Lvl) [facility]2016-07-29 10:06:00 Test Item Value Reference Range Interpretation Comments Sodium Lvl (test code = Sodium Lvl) 145 135-145 [facility]2016-07-29 10:06:00 Test Item Value Reference Range Interpretation Comments CO2 (test code = CO2) 28 24-32 [facility]2016-07-29 10:06:00 Test Item Value Reference Range Interpretation Comments Chloride Lvl (test code = Chloride Lvl) 109 95-109 [facility]2016-07-29 10:06:00 Test Item Value Reference Range Interpretation Comments Creatinine Lvl (test code = Creatinine 0.70 0.50-1.40 Lvl) [facility]2016-07-29 10:06:00 Test Item Value Reference Range Interpretation Comments eGFR (test code = eGFR) 86 [facility]2016-07-29 10:06:00 Test Item Value Reference Range Interpretation Comments Glucose Lvl (test code = Glucose Lvl) 133 70-99 [facility]2016-07-29 10:06:00 Test Item Value Reference Range Interpretation Comments BUN (test code = BUN) 15 7-22 [facility]2016-07-29 10:06:00 Test Item Value Reference Range Interpretation Comments AGAP (test code = AGAP) 11.7 10.0-20.0 [facility]2016-07-29 10:06:00 Test Item Value Reference Range Interpretation Comments Calcium Lvl (test code = Calcium Lvl) 10.1 8.5-10.5 [facility]2016-07-29 10:06:00 Test Item Value Reference Range Interpretation Comments Potassium Lvl (test code = Potassium 3.7 3.5-5.1 Lvl) [facility]2016-07-29 10:06:00 Test Item Value Reference Range Interpretation Comments Sodium Lvl (test code = Sodium Lvl) 145 135-145 [facility]2016-07-29 10:06:00 Test Item Value Reference Range Interpretation Comments CO2 (test code = CO2) 28 -32 [facility]2016-07-29 10:06:00 Test Item Value Reference Range Interpretation Comments Chloride Lvl (test code = Chloride Lvl) 109 95-109 [facility]2016-07-29 10:06:00 Test Item Value Reference Range Interpretation Comments Creatinine Lvl (test code = Creatinine 0.70 0.50-1.40 Lvl) [facility]2016-07-29 10:06:00 Test Item Value Reference Range Interpretation Comments eGFR (test code = eGFR) 86 [facility]2016-07-29 10:06:00 Test Item Value Reference Range Interpretation Comments Glucose Lvl (test code = Glucose Lvl) 133 70-99 [facility]2016-07-29 10:06:00 Test Item Value Reference Range Interpretation Comments BUN (test code = BUN) 01-06 [facility]2016-07-29 10:06:00 Test Item Value Reference Range Interpretation Comments AGAP (test code = AGAP) 11.7 10.0-20.0 [facility]2016-07-29 10:06:00 Test Item Value Reference Range Interpretation Comments Calcium Lvl (test code = Calcium Lvl) 10.1 8.5-10.5 [facility]2016-07-29 10:06:00 Test Item Value Reference Range Interpretation Comments Potassium Lvl (test code = Potassium 3.7 3.5-5.1 Lvl) [facility]2016-07-29 10:06:00 Test Item Value Reference Range Interpretation Comments Sodium Lvl (test code = Sodium Lvl) 145 135-145 [facility]2016-07-29 10:06:00 Test Item Value Reference Range Interpretation Comments CO2 (test code = CO2) 28 24-32 [facility]2016-07-29 10:06:00 Test Item Value Reference Range Interpretation Comments Chloride Lvl (test code = Chloride Lvl) 109 95-109 [facility]2016-07-29 10:06:00 Test Item Value Reference Range Interpretation Comments Creatinine Lvl (test code = Creatinine 0.70 0.50-1.40 Lvl) [facility]2016-07-29 10:06:00 Test Item Value Reference Range Interpretation Comments eGFR (test code = eGFR) 86 [facility]2016-07-29 10:06:00 Test Item Value Reference Range Interpretation Comments Glucose Lvl (test code = Glucose Lvl) 133 70-99 [facility]2016-07-29 10:06:00 Test Item Value Reference Range Interpretation Comments BUN (test code = BUN) 15 01-06 [facility]2016-07-29 10:06:00 Test Item Value Reference Range Interpretation Comments AGAP (test code = AGAP) 11.7 10.0-20.0 [facility]2016-07-29 10:06:00 Test Item Value Reference Range Interpretation Comments Calcium Lvl (test code = Calcium Lvl) 10.1 8.5-10.5 [facility]2016-07-29 10:06:00 Test Item Value Reference Range Interpretation Comments Potassium Lvl (test code = Potassium 3.7 3.5-5.1 Lvl) [facility]2016-07-29 10:06:00 Test Item Value Reference Range Interpretation Comments Sodium Lvl (test code = Sodium Lvl) 145 135-145 [facility]2016-07-29 10:06:00 Test Item Value Reference Range Interpretation Comments CO2 (test code = CO2) 28 24-32 [facility]2016-07-29 10:06:00 Test Item Value Reference Range Interpretation Comments Chloride Lvl (test code = Chloride Lvl) 109 95-109 [facility]2016-07-29 10:06:00 Test Item Value Reference Range Interpretation Comments Creatinine Lvl (test code = Creatinine 0.70 0.50-1.40 Lvl) [facility]2016-07-29 10:06:00 Test Item Value Reference Range Interpretation Comments eGFR (test code = eGFR) 86 [facility]2016-07-29 10:06:00 Test Item Value Reference Range Interpretation Comments Glucose Lvl (test code = Glucose Lvl) 133 70-99 [facility]2016-07-29 10:06:00 Test Item Value Reference Range Interpretation Comments BUN (test code = BUN) 15 7-22 [facility]2016-07-29 10:06:00 Test Item Value Reference Range Interpretation Comments AGAP (test code = AGAP) 11.7 10.0-20.0 [facility]2016-07-29 10:06:00 Test Item Value Reference Range Interpretation Comments Calcium Lvl (test code = Calcium Lvl) 10.1 8.5-10.5 [facility]2016-07-29 10:06:00 Test Item Value Reference Range Interpretation Comments Potassium Lvl (test code = Potassium 3.7 3.5-5.1 Lvl) [facility]2016-07-29 10:06:00 Test Item Value Reference Range Interpretation Comments Sodium Lvl (test code = Sodium Lvl) 145 135-145 [facility]2016-07-29 10:06:00 Test Item Value Reference Range Interpretation Comments CO2 (test code = CO2) [facility]2016-07-29 10:06:00 Test Item Value Reference Range Interpretation Comments Chloride Lvl (test code = Chloride Lvl) 109 95-109 [facility]2016-07-29 10:06:00 Test Item Value Reference Range Interpretation Comments Creatinine Lvl (test code = Creatinine 0.70 0.50-1.40 Lvl) [facility]2016-07-29 10:06:00 Test Item Value Reference Range Interpretation Comments eGFR (test code = eGFR) 86 [facility]2016-07-29 10:06:00 Test Item Value Reference Range Interpretation Comments Glucose Lvl (test code = Glucose Lvl) 133 70-99 [facility]2016-07-29 10:06:00 Test Item Value Reference Range Interpretation Comments BUN (test code = BUN) 15 7-22 [facility]2016-07-29 10:06:00 Test Item Value Reference Range Interpretation Comments AGAP (test code = AGAP) 11.7 10.0-20.0 [facility]2016-07-29 10:06:00 Test Item Value Reference Range Interpretation Comments Calcium Lvl (test code = Calcium Lvl) 10.1 8.5-10.5 [facility]2016-07-29 10:06:00 Test Item Value Reference Range Interpretation Comments Potassium Lvl (test code = Potassium 3.7 3.5-5.1 Lvl) [facility]2016-07-29 10:06:00 Test Item Value Reference Range Interpretation Comments Sodium Lvl (test code = Sodium Lvl) 145 135-145 [facility]2016-07-29 10:06:00 Test Item Value Reference Range Interpretation Comments CO2 (test code = CO2) [facility]2016-07-29 10:06:00 Test Item Value Reference Range Interpretation Comments Chloride Lvl (test code = Chloride Lvl) 109 95-109 [facility]2016-07-29 10:06:00 Test Item Value Reference Range Interpretation Comments Creatinine Lvl (test code = Creatinine 0.70 0.50-1.40 Lvl) [facility]2016-07-29 10:06:00 Test Item Value Reference Range Interpretation Comments eGFR (test code = eGFR) 86 [facility]2016-07-29 10:06:00 Test Item Value Reference Range Interpretation Comments Glucose Lvl (test code = Glucose Lvl) 133 70-99 [facility]2016-07-29 10:06:00 Test Item Value Reference Range Interpretation Comments BUN (test code = BUN) 15 7-22 [facility]2016-07-29 10:06:00 Test Item Value Reference Range Interpretation Comments AGAP (test code = AGAP) 11.7 10.0-20.0 [facility]2016-07-29 10:06:00 Test Item Value Reference Range Interpretation Comments Calcium Lvl (test code = Calcium Lvl) 10.1 8.5-10.5 [facility]2016-07-29 10:06:00 Test Item Value Reference Range Interpretation Comments Potassium Lvl (test code = Potassium 3.7 3.5-5.1 Lvl) [facility]2016-07-29 10:06:00 Test Item Value Reference Range Interpretation Comments Sodium Lvl (test code = Sodium Lvl) 145 135-145 [facility]2016-07-29 10:06:00 Test Item Value Reference Range Interpretation Comments CO2 (test code = CO2) 28 24-32 [facility]2016-07-29 10:06:00 Test Item Value Reference Range Interpretation Comments Chloride Lvl (test code = Chloride Lvl) 109 95-109 [facility]2016-07-29 10:06:00 Test Item Value Reference Range Interpretation Comments Creatinine Lvl (test code = Creatinine 0.70 0.50-1.40 Lvl) [facility]2016-07-29 10:06:00 Test Item Value Reference Range Interpretation Comments eGFR (test code = eGFR) 86 [facility]2016-07-29 10:06:00 Test Item Value Reference Range Interpretation Comments Glucose Lvl (test code = Glucose Lvl) 133 70-99 [facility]2016-07-29 10:06:00 Test Item Value Reference Range Interpretation Comments BUN (test code = BUN) 15 - [facility]2016-07-29 10:06:00 Test Item Value Reference Range Interpretation Comments AGAP (test code = AGAP) 11.7 10.0-20.0 [facility]2016-07-29 10:06:00 Test Item Value Reference Range Interpretation Comments Calcium Lvl (test code = Calcium Lvl) 10.1 8.5-10.5 [facility]2016-07-29 10:06:00 Test Item Value Reference Range Interpretation Comments Potassium Lvl (test code = Potassium 3.7 3.5-5.1 Lvl) [facility]2016-07-29 10:06:00 Test Item Value Reference Range Interpretation Comments Sodium Lvl (test code = Sodium Lvl) 145 135-145 [facility]2016-07-29 10:06:00 Test Item Value Reference Range Interpretation Comments CO2 (test code = CO2) 28 24-32 [facility]2016-07-29 10:06:00 Test Item Value Reference Range Interpretation Comments Chloride Lvl (test code = Chloride Lvl) 109 95-109 [facility]2016-07-29 10:06:00 Test Item Value Reference Range Interpretation Comments Creatinine Lvl (test code = Creatinine 0.70 0.50-1.40 Lvl) [facility]2016-07-29 10:06:00 Test Item Value Reference Range Interpretation Comments eGFR (test code = eGFR) 86 [facility]2016-07-29 10:06:00 Test Item Value Reference Range Interpretation Comments Glucose Lvl (test code = Glucose Lvl) 133 70-99 [facility]2016-07-29 10:06:00 Test Item Value Reference Range Interpretation Comments BUN (test code = BUN) 15 - [facility]2016-07-29 10:06:00 Test Item Value Reference Range Interpretation Comments AGAP (test code = AGAP) 11.7 10.0-20.0 [facility]2016-07-29 10:06:00 Test Item Value Reference Range Interpretation Comments Calcium Lvl (test code = Calcium Lvl) 10.1 8.5-10.5 [facility]2016-07-29 10:06:00 Test Item Value Reference Range Interpretation Comments Potassium Lvl (test code = Potassium 3.7 3.5-5.1 Lvl) [facility]2016-07-29 10:06:00 Test Item Value Reference Range Interpretation Comments Sodium Lvl (test code = Sodium Lvl) 145 135-145 [facility]2016-07-29 10:06:00 Test Item Value Reference Range Interpretation Comments CO2 (test code = CO2) [facility]2016-07-29 10:06:00 Test Item Value Reference Range Interpretation Comments Chloride Lvl (test code = Chloride Lvl) 109 95-109 [facility]2016-07-29 10:06:00 Test Item Value Reference Range Interpretation Comments Creatinine Lvl (test code = Creatinine 0.70 0.50-1.40 Lvl) [facility]2016-07-29 10:06:00 Test Item Value Reference Range Interpretation Comments eGFR (test code = eGFR) 86 [facility]2016-07-29 10:06:00 Test Item Value Reference Range Interpretation Comments Glucose Lvl (test code = Glucose Lvl) 133 70-99 [facility]2016-07-29 10:06:00 Test Item Value Reference Range Interpretation Comments BUN (test code = BUN) 15 7-22 [facility]2016-07-29 10:06:00 Test Item Value Reference Range Interpretation Comments AGAP (test code = AGAP) 11.7 10.0-20.0 [facility]2016-07-29 10:06:00 Test Item Value Reference Range Interpretation Comments Calcium Lvl (test code = Calcium Lvl) 10.1 8.5-10.5 [facility]2016-07-29 10:06:00 Test Item Value Reference Range Interpretation Comments Potassium Lvl (test code = Potassium 3.7 3.5-5.1 Lvl) [facility]2016-07-29 10:06:00 Test Item Value Reference Range Interpretation Comments Sodium Lvl (test code = Sodium Lvl) 145 135-145 [facility]2016-07-29 10:06:00 Test Item Value Reference Range Interpretation Comments CO2 (test code = CO2) [facility]2016-07-29 10:06:00 Test Item Value Reference Range Interpretation Comments Chloride Lvl (test code = Chloride Lvl) 109 95-109 [facility]2016-07-29 10:06:00 Test Item Value Reference Range Interpretation Comments Creatinine Lvl (test code = Creatinine 0.70 0.50-1.40 Lvl) [facility]2016-07-29 10:06:00 Test Item Value Reference Range Interpretation Comments eGFR (test code = eGFR) 86 [facility]2016-07-29 10:06:00 Test Item Value Reference Range Interpretation Comments Glucose Lvl (test code = Glucose Lvl) 133 70-99 [facility]2016-07-29 10:06:00 Test Item Value Reference Range Interpretation Comments BUN (test code = BUN) 15 - [facility]2016-07-29 10:06:00 Test Item Value Reference Range Interpretation Comments AGAP (test code = AGAP) 11.7 10.0-20.0 [facility]2016-07-29 10:06:00 Test Item Value Reference Range Interpretation Comments Calcium Lvl (test code = Calcium Lvl) 10.1 8.5-10.5 [facility]2016-07-29 10:06:00 Test Item Value Reference Range Interpretation Comments Potassium Lvl (test code = Potassium 3.7 3.5-5.1 Lvl) [facility]2016-07-29 10:06:00 Test Item Value Reference Range Interpretation Comments Sodium Lvl (test code = Sodium Lvl) 145 135-145 [facility]2016-07-29 10:06:00 Test Item Value Reference Range Interpretation Comments CO2 (test code = CO2) 28 -32 [facility]2016-07-29 10:06:00 Test Item Value Reference Range Interpretation Comments Chloride Lvl (test code = Chloride Lvl) 109 95-109 [facility]2016-07-29 10:06:00 Test Item Value Reference Range Interpretation Comments Creatinine Lvl (test code = Creatinine 0.70 0.50-1.40 Lvl) [facility]2016-07-29 10:06:00 Test Item Value Reference Range Interpretation Comments eGFR (test code = eGFR) 86 [facility]2016-07-29 10:06:00 Test Item Value Reference Range Interpretation Comments Glucose Lvl (test code = Glucose Lvl) 133 70-99 [facility]2016-07-29 10:06:00 Test Item Value Reference Range Interpretation Comments BUN (test code = BUN) 15 01-06 [facility]2016-07-29 10:06:00 Test Item Value Reference Range Interpretation Comments AGAP (test code = AGAP) 11.7 10.0-20.0 [facility]2016-07-29 10:06:00 Test Item Value Reference Range Interpretation Comments Calcium Lvl (test code = Calcium Lvl) 10.1 8.5-10.5 [facility]2016-07-29 10:06:00 Test Item Value Reference Range Interpretation Comments Potassium Lvl (test code = Potassium 3.7 3.5-5.1 Lvl) [facility]2016-07-29 10:06:00 Test Item Value Reference Range Interpretation Comments Sodium Lvl (test code = Sodium Lvl) 145 135-145 [facility]2016-07-29 10:06:00 Test Item Value Reference Range Interpretation Comments CO2 (test code = CO2) 28 24-32 [facility]2016-07-29 10:06:00 Test Item Value Reference Range Interpretation Comments Chloride Lvl (test code = Chloride Lvl) 109 95-109 [facility]2016-07-29 10:06:00 Test Item Value Reference Range Interpretation Comments Creatinine Lvl (test code = Creatinine 0.70 0.50-1.40 Lvl) [facility]2016-07-29 10:06:00 Test Item Value Reference Range Interpretation Comments eGFR (test code = eGFR) 86 [facility]2016-07-29 10:06:00 Test Item Value Reference Range Interpretation Comments Glucose Lvl (test code = Glucose Lvl) 133 70-99 [facility]2016-07-29 10:06:00 Test Item Value Reference Range Interpretation Comments BUN (test code = BUN) 15 01-06 [facility]2016-07-29 10:06:00 Test Item Value Reference Range Interpretation Comments AGAP (test code = AGAP) 11.7 10.0-20.0 [facility]2016-07-29 10:06:00 Test Item Value Reference Range Interpretation Comments Calcium Lvl (test code = Calcium Lvl) 10.1 8.5-10.5 [facility]2016-07-29 10:06:00 Test Item Value Reference Range Interpretation Comments Potassium Lvl (test code = Potassium 3.7 3.5-5.1 Lvl) [facility]2016-07-29 10:06:00 Test Item Value Reference Range Interpretation Comments Sodium Lvl (test code = Sodium Lvl) 145 135-145 [facility]2016-07-29 10:06:00 Test Item Value Reference Range Interpretation Comments CO2 (test code = CO2) 28 24-32 [facility]2016-07-29 10:06:00 Test Item Value Reference Range Interpretation Comments Chloride Lvl (test code = Chloride Lvl) 109 95-109 [facility]2016-07-29 10:06:00 Test Item Value Reference Range Interpretation Comments Creatinine Lvl (test code = Creatinine 0.70 0.50-1.40 Lvl) [facility]2016-07-29 10:06:00 Test Item Value Reference Range Interpretation Comments eGFR (test code = eGFR) 86 [facility]2016-07-28 10:43:00 Test Item Value Reference Range Interpretation Comments Total Protein (test code = Total 4.9 6.4-8.4 Protein) [facility]2016-07-28 10:43:00 Test Item Value Reference Range Interpretation Comments Alk Phos (test code = Alk Phos) 60 39-136 [facility]2016-07-28 10:43:00 Test Item Value Reference Range Interpretation Comments Bili Total (test code = Bili Total) 0.4 0.2-1.3 [facility]2016-07-28 10:43:00 Test Item Value Reference Range Interpretation Comments ALT (test code = ALT) 22 See_Comment [Auto mated message] The system which ge nerated this result transmit juan reference range : <=65. The reference range was not used to interpr et this result as polina l/abnormal. [facility]2016-07-28 10:43:00 Test Item Value Reference Range Interpretation Comments AST (test code = AST) 12 See_Comment [Auto mated message] The system which ge nerated this result transmit juan reference range : <=37. The reference range was not used to interpr et this result as polina l/abnormal. [facility]2016-07-28 10:43:00 Test Item Value Reference Range Interpretation Comments Albumin Lvl (test code = Albumin Lvl) 2.7 3.5-5.0 [facility]2016-07-28 10:43:00 Test Item Value Reference Range Interpretation Comments Globulin (test code = Globulin) 2.2 2.0-4.0 [facility]2016-07-28 10:43:00 Test Item Value Reference Range Interpretation Comments A/G Ratio (test code = A/G Ratio) 1.2 0.7-1.6 [facility]2016-07-28 10:43:00 Test Item Value Reference Range Interpretation Comments B/C Ratio (test code = B/C Ratio) 23 6-25 [facility]nfkvjCUJLHTDROX5251-25-66 10:43:00 Test Item Value Reference Range Interpretation Comments RBC (test code = RBC) 4.18 4.20-5.40 [facility]MkukefgOQDLGABLTE8724-21-44 10:43:00 Test Item Value Reference Range Interpretation Comments WBC (test code = WBC) 6.7 3.7-10.4 [facility]oSdqxkkeBGRQWENANV8577-38-82 10:43:00 Test Item Value Reference Range Interpretation Comments MPV (test code = MPV) 9.3 7.4-10.4 [facility]EyqnwyxJZUKEODPXG3844-61-73 10:43:00 Test Item Value Reference Range Interpretation Comments Platelet (test code = Platelet) 159 133-450 [facility]EibijxkSDNCLBJLHM2199-98-70 10:43:00 Test Item Value Reference Range Interpretation Comments RDW (test code = RDW) 12.8 11.5-14.5 [facility]EprcgomKWFQIOHTQU0364-88-41 10:43:00 Test Item Value Reference Range Interpretation Comments MCH (test code = MCH) 30.7 pg 27.0-31.0 [facility] PasoGebupszCNWFWAYVCP1126-08-48 10:43:00 Test Item Value Reference Range Interpretation Comments MCV (test code = MCV) 93.8 80.0-98.0 [facility] [place]XambxaeGORVURDXIW0223-05-88 10:43:00 Test Item Value Reference Range Interpretation Comments Hct (test code = Hct) 39.2 36.0-48.0 [facility]NmpwtmwCBBMECGZDM6180-94-33 10:43:00 Test Item Value Reference Range Interpretation Comments Hgb (test code = Hgb) 12.8 12.0-16.0 [facility] PasoHythydxNMXOEWXLID5125-15-83 10:43:00 Test Item Value Reference Range Interpretation Comments MCHC (test code = MCHC) 32.8 32.0-36.0 [facility] PasoDmudlwrDUSVLYHIKN0889-88-96 10:43:00 Test Item Value Reference Range Interpretation Comments Lymphocytes (test code = Lymphocytes) 21.4 20.0-40.0 [facility] PasoBfbjdgxEJGWBKNGSG2907-44-67 10:43:00 Test Item Value Reference Range Interpretation Comments Segs (test code = Segs) 64.1 45.0-75.0 [facility] PasoKwwiadoOCTNFTUBXJ2525-38-91 10:43:00 Test Item Value Reference Range Interpretation Comments Eosinophils (test code = 3.1 See_Comment [A utomated message] The Eosinophils) system which ge nerated this result tra nsmitted reference range : <=4.0. The reference r leatha was not used to int erpret this result as normal/abnormal . [facility] PasoWcqurcjXAVUEGXUKQ1610-65-71 10:43:00 Test Item Value Reference Range Interpretation Comments Monocytes (test code = Monocytes) 10.9 2.0-12.0 [facility] PasoJbxbqqfKRKFOHQIBB7020-81-63 10:43:00 Test Item Value Reference Range Interpretation Comments Basophils (test code = 0.5 See_Comment [Aut omated message] The Basophils) system which ge nerated this result tra nsmitted reference range : <=1.0. The reference r leatha was not used to int erpret this result as normal/abnormal . [facility] PasoDzaokunYDMDANZGOO6003-60-75 10:43:00 Test Item Value Reference Range Interpretation Comments Basophils # (test code 0.0 See_Comment [Aut omated message] The = Basophils #) system which generated this result tra nsmitted reference range : <=0.2. The reference r leatha was not used to int erpret this result as normal/abnormal . [facility] PasoEriprxjCIQJCVNSQC8081-47-07 10:43:00 Test Item Value Reference Range Interpretation Comments Eosinophils # (test code 0.2 See_Comment [A utomated message] The = Eosinophils #) system whic h generated this result tra nsmitted reference range : <=0.5. The reference r leatha was not used to int erpret this result as normal/abnormal . [facility] Pa[id number] 10:43:00 Test Item Value Reference Range Interpretation Comments Monocytes # (test code 0.7 See_Comment [Aut omated message] The = Monocytes #) system which generated this result tra nsmitted reference range : <=0.8. The reference r leatha was not used to int erpret this result as normal/abnormal . [facility] Pa[id number] 10:43:00 Test Item Value Reference Range Interpretation Comments Lymphocytes # (test code = Lymphocytes 1.4 1.0-5.5 #) [facility] PasoRycggapYBLUGWWVUV1252-03-02 10:43:00 Test Item Value Reference Range Interpretation Comments Segs-Bands # (test code = Segs-Bands #) 4.3 1.5-8.1 [facility]2016-07-28 10:43:00 Test Item Value Reference Range Interpretation Comments Total Protein (test code = Total 4.9 6.4-8.4 Protein) [facility]2016-07-28 10:43:00 Test Item Value Reference Range Interpretation Comments Alk Phos (test code = Alk Phos) 60 39-136 [facility]2016-07-28 10:43:00 Test Item Value Reference Range Interpretation Comments Bili Total (test code = Bili Total) 0.4 0.2-1.3 [facility]2016-07-28 10:43:00 Test Item Value Reference Range Interpretation Comments ALT (test code = ALT) 22 See_Comment [Auto mated message] The system which ge nerated this result transmit juan reference range : <=65. The reference range was not used to interpr et this result as polina l/abnormal. [facility]2016-07-28 10:43:00 Test Item Value Reference Range Interpretation Comments AST (test code = AST) 12 See_Comment [Auto mated message] The system which ge nerated this result transmit juan reference range : <=37. The reference range was not used to interpr et this result as polina l/abnormal. [facility]2016-07-28 10:43:00 Test Item Value Reference Range Interpretation Comments Albumin Lvl (test code = Albumin Lvl) 2.7 3.5-5.0 [facility]2016-07-28 10:43:00 Test Item Value Reference Range Interpretation Comments Globulin (test code = Globulin) 2.2 2.0-4.0 [facility]2016-07-28 10:43:00 Test Item Value Reference Range Interpretation Comments A/G Ratio (test code = A/G Ratio) 1.2 0.7-1.6 [facility]2016-07-28 10:43:00 Test Item Value Reference Range Interpretation Comments B/C Ratio (test code = B/C Ratio) 23 6-25 [facility] Pa[id number] 10:43:00 Test Item Value Reference Range Interpretation Comments RBC (test code = RBC) 4.18 4.20-5.40 [facility] Pa[id number] 10:43:00 Test Item Value Reference Range Interpretation Comments WBC (test code = WBC) 6.7 3.7-10.4 [facility] PasoDbsdyowRISLCBXPYV9459-91-57 10:43:00 Test Item Value Reference Range Interpretation Comments MPV (test code = MPV) 9.3 7.4-10.4 [facility] PasoXjqubeyZQRXUHZKFN2247-13-76 10:43:00 Test Item Value Reference Range Interpretation Comments Platelet (test code = Platelet) 159 133-450 [facility] PasoJiaiblhKPUOXARLDC8884-82-06 10:43:00 Test Item Value Reference Range Interpretation Comments RDW (test code = RDW) 12.8 11.5-14.5 [facility] Pa[id number] 10:43:00 Test Item Value Reference Range Interpretation Comments MCH (test code = MCH) 30.7 pg 27.0-31.0 [facility] PasoAtxkrntXYBWLWOSRG9978-18-21 10:43:00 Test Item Value Reference Range Interpretation Comments MCV (test code = MCV) 93.8 80.0-98.0 [facility] PasoXfpjyzeEUAAAYWXYR8285-52-31 10:43:00 Test Item Value Reference Range Interpretation Comments Hct (test code = Hct) 39.2 36.0-48.0 [facility] PasoTbrkpidHFRKEBVDLG9365-01-94 10:43:00 Test Item Value Reference Range Interpretation Comments Hgb (test code = Hgb) 12.8 12.0-16.0 [facility] PasoLulzoeaHINCLEUOKE5918-88-61 10:43:00 Test Item Value Reference Range Interpretation Comments MCHC (test code = MCHC) 32.8 32.0-36.0 [facility] PasoAdcjjafAJQGDMVRCB6870-92-03 10:43:00 Test Item Value Reference Range Interpretation Comments Lymphocytes (test code = Lymphocytes) 21.4 20.0-40.0 [facility] PasoHynpqweGHMMMWJVIS6001-22-30 10:43:00 Test Item Value Reference Range Interpretation Comments Segs (test code = Segs) 64.1 45.0-75.0 [facility] PasoLjzqvhbLZDFYHOVXT9361-04-77 10:43:00 Test Item Value Reference Range Interpretation Comments Eosinophils (test code = 3.1 See_Comment [A utomated message] The Eosinophils) system which ge nerated this result tra nsmitted reference range : <=4.0. The reference r leatha was not used to int erpret this result as normal/abnormal . [facility] PasoHpnifmmLZGLADXFCF3624-92-14 10:43:00 Test Item Value Reference Range Interpretation Comments Monocytes (test code = Monocytes) 10.9 2.0-12.0 [facility] PasoLprwtspFCQUTCJPGU8029-72-40 10:43:00 Test Item Value Reference Range Interpretation Comments Basophils (test code = 0.5 See_Comment [Aut omated message] The Basophils) system which ge nerated this result tra nsmitted reference range : <=1.0. The reference r leatha was not used to int erpret this result as normal/abnormal . [facility] PasoTxiutozQMHSBZISXW8611-26-60 10:43:00 Test Item Value Reference Range Interpretation Comments Basophils # (test code 0.0 See_Comment [Aut omated message] The = Basophils #) system which generated this result tra nsmitted reference range : <=0.2. The reference r leatha was not used to int erpret this result as normal/abnormal . [facility] PasoDplibqcKEFDBDUSEU5385-36-55 10:43:00 Test Item Value Reference Range Interpretation Comments Eosinophils # (test code 0.2 See_Comment [A utomated message] The = Eosinophils #) system whic h generated this result tra nsmitted reference range : <=0.5. The reference r leatha was not used to int erpret this result as normal/abnormal . [facility] PasoLvzfftcOFFIKGXXOU9358-65-67 10:43:00 Test Item Value Reference Range Interpretation Comments Monocytes # (test code 0.7 See_Comment [Aut omated message] The = Monocytes #) system which generated this result tra nsmitted reference range : <=0.8. The reference r leatha was not used to int erpret this result as normal/abnormal . [facility] PasoLicfkviMZWHBETGXK3395-27-22 10:43:00 Test Item Value Reference Range Interpretation Comments Lymphocytes # (test code = Lymphocytes 1.4 1.0-5.5 #) [facility] PasoCsozblfDRVXMBFJJB7620-36-02 10:43:00 Test Item Value Reference Range Interpretation Comments Segs-Bands # (test code = Segs-Bands #) 4.3 1.5-8.1 [facility]2016-07-28 10:43:00 Test Item Value Reference Range Interpretation Comments Total Protein (test code = Total 4.9 6.4-8.4 Protein) [facility]2016-07-28 10:43:00 Test Item Value Reference Range Interpretation Comments Alk Phos (test code = Alk Phos) 60 39-136 [facility]2016-07-28 10:43:00 Test Item Value Reference Range Interpretation Comments Bili Total (test code = Bili Total) 0.4 0.2-1.3 [facility]2016-07-28 10:43:00 Test Item Value Reference Range Interpretation Comments ALT (test code = ALT) 22 See_Comment [Auto mated message] The system which ge nerated this result transmit juan reference range : <=65. The reference range was not used to interpr et this result as polina l/abnormal. [facility]2016-07-28 10:43:00 Test Item Value Reference Range Interpretation Comments AST (test code = AST) 12 See_Comment [Auto mated message] The system which ge nerated this result transmit juan reference range : <=37. The reference range was not used to interpr et this result as polina l/abnormal. [facility]2016-07-28 10:43:00 Test Item Value Reference Range Interpretation Comments Albumin Lvl (test code = Albumin Lvl) 2.7 3.5-5.0 [facility]2016-07-28 10:43:00 Test Item Value Reference Range Interpretation Comments Globulin (test code = Globulin) 2.2 2.0-4.0 [facility]2016-07-28 10:43:00 Test Item Value Reference Range Interpretation Comments A/G Ratio (test code = A/G Ratio) 1.2 0.7-1.6 [facility]2016-07-28 10:43:00 Test Item Value Reference Range Interpretation Comments B/C Ratio (test code = B/C Ratio) 23 6-25 [facility] PasoVgjffstSYFNETWCCV5829-21-71 10:43:00 Test Item Value Reference Range Interpretation Comments RBC (test code = RBC) 4.18 4.20-5.40 [facility] PasoUwqwkxtFARZEVLEDI8717-87-64 10:43:00 Test Item Value Reference Range Interpretation Comments WBC (test code = WBC) 6.7 3.7-10.4 [facility] PasoHkkfazhXVBXDDSWDI2415-92-84 10:43:00 Test Item Value Reference Range Interpretation Comments MPV (test code = MPV) 9.3 7.4-10.4 [facility] PasoCngeevfDBRCQAAWQG1371-87-70 10:43:00 Test Item Value Reference Range Interpretation Comments Platelet (test code = Platelet) 159 133-450 [facility] PasoWlnkuzhRIUQJTPYOR5514-72-91 10:43:00 Test Item Value Reference Range Interpretation Comments RDW (test code = RDW) 12.8 11.5-14.5 [facility] PasoKhczhdrXJCUJHUQVE9307-36-51 10:43:00 Test Item Value Reference Range Interpretation Comments MCH (test code = MCH) 30.7 pg 27.0-31.0 [facility] PasoIigoewkOYXDLGLOKV6200-24-70 10:43:00 Test Item Value Reference Range Interpretation Comments MCV (test code = MCV) 93.8 80.0-98.0 [facility] PasoAfdhvpuGMPGZNZKXT2234-99-50 10:43:00 Test Item Value Reference Range Interpretation Comments Hct (test code = Hct) 39.2 36.0-48.0 [facility] PasoMfibgiyTUVZSHYGYP0176-45-22 10:43:00 Test Item Value Reference Range Interpretation Comments Hgb (test code = Hgb) 12.8 12.0-16.0 [facility] PasoLkfnencKIWLLEPRLH0242-22-00 10:43:00 Test Item Value Reference Range Interpretation Comments MCHC (test code = MCHC) 32.8 32.0-36.0 [facility] PasoEkavurtPJCHBTGYUU5755-73-16 10:43:00 Test Item Value Reference Range Interpretation Comments Lymphocytes (test code = Lymphocytes) 21.4 20.0-40.0 [facility] PasoIxgsmkfOVDODMOCAR3905-72-98 10:43:00 Test Item Value Reference Range Interpretation Comments Segs (test code = Segs) 64.1 45.0-75.0 [facility] PasoAzmigggDOGFBXKZLD1180-46-37 10:43:00 Test Item Value Reference Range Interpretation Comments Eosinophils (test code = 3.1 See_Comment [A utomated message] The Eosinophils) system which ge nerated this result tra nsmitted reference range : <=4.0. The reference r leatha was not used to int erpret this result as normal/abnormal . [facility] PasoIhcfvcvKXTBSQLWFH5265-14-33 10:43:00 Test Item Value Reference Range Interpretation Comments Monocytes (test code = Monocytes) 10.9 2.0-12.0 [facility] PasoPmdvxieLMYSPLCDJF5647-30-11 10:43:00 Test Item Value Reference Range Interpretation Comments Basophils (test code = 0.5 See_Comment [Aut omated message] The Basophils) system which ge nerated this result tra nsmitted reference range : <=1.0. The reference r leatha was not used to int erpret this result as normal/abnormal . [facility] PasoIzvekjdSVYVZCOGNR8144-67-34 10:43:00 Test Item Value Reference Range Interpretation Comments Basophils # (test code 0.0 See_Comment [Aut omated message] The = Basophils #) system which generated this result tra nsmitted reference range : <=0.2. The reference r leatha was not used to int erpret this result as normal/abnormal . [facility] PasoDzsjjtnNEKHTPPAXB8398-94-89 10:43:00 Test Item Value Reference Range Interpretation Comments Eosinophils # (test code 0.2 See_Comment [A utomated message] The = Eosinophils #) system wh h generated this result tra nsmitted reference range : <=0.5. The reference r leatha was not used to int erpret this result as normal/abnormal . [facility] PasoShclxwcOVRZQMOJLS2914-49-04 10:43:00 Test Item Value Reference Range Interpretation Comments Monocytes # (test code 0.7 See_Comment [Aut omated message] The = Monocytes #) system which generated this result tra nsmitted reference range : <=0.8. The reference r leatha was not used to int erpret this result as normal/abnormal . [facility] PasoVzyxnemJLFNLSABID6975-01-44 10:43:00 Test Item Value Reference Range Interpretation Comments Lymphocytes # (test code = Lymphocytes 1.4 1.0-5.5 #) [facility] PasoGcfwdexYMPIGPQGOX7388-19-78 10:43:00 Test Item Value Reference Range Interpretation Comments Segs-Bands # (test code = Segs-Bands #) 4.3 1.5-8.1 [facility]2016-07-28 10:43:00 Test Item Value Reference Range Interpretation Comments Total Protein (test code = Total 4.9 6.4-8.4 Protein) [facility]2016-07-28 10:43:00 Test Item Value Reference Range Interpretation Comments Alk Phos (test code = Alk Phos) 60 39-136 [facility]2016-07-28 10:43:00 Test Item Value Reference Range Interpretation Comments Bili Total (test code = Bili Total) 0.4 0.2-1.3 [facility]2016-07-28 10:43:00 Test Item Value Reference Range Interpretation Comments ALT (test code = ALT) 22 See_Comment [Auto mated message] The system which ge nerated this result transmit juan reference range : <=65. The reference range was not used to interpr et this result as polina l/abnormal. [facility]2016-07-28 10:43:00 Test Item Value Reference Range Interpretation Comments AST (test code = AST) 12 See_Comment [Auto mated message] The system which ge nerated this result transmit juan reference range : <=37. The reference range was not used to interpr et this result as polina l/abnormal. [facility]2016-07-28 10:43:00 Test Item Value Reference Range Interpretation Comments Albumin Lvl (test code = Albumin Lvl) 2.7 3.5-5.0 [facility]2016-07-28 10:43:00 Test Item Value Reference Range Interpretation Comments Globulin (test code = Globulin) 2.2 2.0-4.0 [facility]2016-07-28 10:43:00 Test Item Value Reference Range Interpretation Comments A/G Ratio (test code = A/G Ratio) 1.2 0.7-1.6 [facility]2016-07-28 10:43:00 Test Item Value Reference Range Interpretation Comments B/C Ratio (test code = B/C Ratio) 23 6-25 [facility] PasoJnswinwKBMYTYUXVK3945-07-96 10:43:00 Test Item Value Reference Range Interpretation Comments RBC (test code = RBC) 4.18 4.20-5.40 [facility] PasoSsutwyzDINUCRPSEF3122-20-71 10:43:00 Test Item Value Reference Range Interpretation Comments WBC (test code = WBC) 6.7 3.7-10.4 [facility] PasoKsmevwgRRPYZSEKOI7671-49-98 10:43:00 Test Item Value Reference Range Interpretation Comments MPV (test code = MPV) 9.3 7.4-10.4 [facility] PasoDcdfpnzVMTRIIDODH6585-07-59 10:43:00 Test Item Value Reference Range Interpretation Comments Platelet (test code = Platelet) 159 133-450 [facility] PasoLzfkyxeKBKFWTFICA9036-47-74 10:43:00 Test Item Value Reference Range Interpretation Comments RDW (test code = RDW) 12.8 11.5-14.5 [facility] PasoUbbdsvuZZMVACHLXS4861-18-37 10:43:00 Test Item Value Reference Range Interpretation Comments MCH (test code = MCH) 30.7 pg 27.0-31.0 [facility] PasoCaobfooWXHZIOUJEG0049-52-83 10:43:00 Test Item Value Reference Range Interpretation Comments MCV (test code = MCV) 93.8 80.0-98.0 [facility] PasoKvpjxobOYRWXJPFCT9635-67-25 10:43:00 Test Item Value Reference Range Interpretation Comments Hct (test code = Hct) 39.2 36.0-48.0 [facility] PasoUuizqtoEJJPBTHEJH5584-35-88 10:43:00 Test Item Value Reference Range Interpretation Comments Hgb (test code = Hgb) 12.8 12.0-16.0 [facility] PasoZhbxiehBBNNIFADBG6088-77-08 10:43:00 Test Item Value Reference Range Interpretation Comments MCHC (test code = MCHC) 32.8 32.0-36.0 [facility] PasoAznxjabXVEWBZQZTR5938-64-99 10:43:00 Test Item Value Reference Range Interpretation Comments Lymphocytes (test code = Lymphocytes) 21.4 20.0-40.0 [facility] PasoFhrztjtOHGQNSZZDO8625-51-95 10:43:00 Test Item Value Reference Range Interpretation Comments Segs (test code = Segs) 64.1 45.0-75.0 [facility] PasoMiwrhenPYDFEXYXLJ3275-14-16 10:43:00 Test Item Value Reference Range Interpretation Comments Eosinophils (test code = 3.1 See_Comment [A utomated message] The Eosinophils) system which ge nerated this result tra nsmitted reference range : <=4.0. The reference r leatha was not used to int erpret this result as normal/abnormal . [facility] PasoHakfysxNJBRHIWPEM3414-64-46 10:43:00 Test Item Value Reference Range Interpretation Comments Monocytes (test code = Monocytes) 10.9 2.0-12.0 [facility] PasoJlqsfayORLMRKDBZS2069-88-46 10:43:00 Test Item Value Reference Range Interpretation Comments Basophils (test code = 0.5 See_Comment [Aut omated message] The Basophils) system which ge nerated this result tra nsmitted reference range : <=1.0. The reference r leatha was not used to int erpret this result as normal/abnormal . [facility] PasoEetauzfPERDVVUGAK2170-47-09 10:43:00 Test Item Value Reference Range Interpretation Comments Basophils # (test code 0.0 See_Comment [Aut omated message] The = Basophils #) system which generated this result tra nsmitted reference range : <=0.2. The reference r leatha was not used to int erpret this result as normal/abnormal . [facility] PasoScnhnarCQUFSCVXEA7911-32-16 10:43:00 Test Item Value Reference Range Interpretation Comments Eosinophils # (test code 0.2 See_Comment [A utomated message] The = Eosinophils #) system whic h generated this result tra nsmitted reference range : <=0.5. The reference r leatha was not used to int erpret this result as normal/abnormal . [facility] PasoGwxnuwrTLJTRLMLUY0461-09-50 10:43:00 Test Item Value Reference Range Interpretation Comments Monocytes # (test code 0.7 See_Comment [Aut omated message] The = Monocytes #) system which generated this result tra nsmitted reference range : <=0.8. The reference r leatha was not used to int erpret this result as normal/abnormal . [facility] PasoWtrnkpcBCMWCKINKR5101-32-54 10:43:00 Test Item Value Reference Range Interpretation Comments Lymphocytes # (test code = Lymphocytes 1.4 1.0-5.5 #) [facility] PasoYtrlaygVHDCLIFGSI7804-41-97 10:43:00 Test Item Value Reference Range Interpretation Comments Segs-Bands # (test code = Segs-Bands #) 4.3 1.5-8.1 [facility]2016-07-28 10:43:00 Test Item Value Reference Range Interpretation Comments Total Protein (test code = Total 4.9 6.4-8.4 Protein) [facility]2016-07-28 10:43:00 Test Item Value Reference Range Interpretation Comments Alk Phos (test code = Alk Phos) 60 39-136 [facility]2016-07-28 10:43:00 Test Item Value Reference Range Interpretation Comments Bili Total (test code = Bili Total) 0.4 0.2-1.3 [facility]2016-07-28 10:43:00 Test Item Value Reference Range Interpretation Comments ALT (test code = ALT) 22 See_Comment [Auto mated message] The system which ge nerated this result transmit juan reference range : <=65. The reference range was not used to interpr et this result as polina l/abnormal. [facility]2016-07-28 10:43:00 Test Item Value Reference Range Interpretation Comments AST (test code = AST) 12 See_Comment [Auto mated message] The system which ge nerated this result transmit juan reference range : <=37. The reference range was not used to interpr et this result as polina l/abnormal. [facility]2016-07-28 10:43:00 Test Item Value Reference Range Interpretation Comments Albumin Lvl (test code = Albumin Lvl) 2.7 3.5-5.0 [facility]2016-07-28 10:43:00 Test Item Value Reference Range Interpretation Comments Globulin (test code = Globulin) 2.2 2.0-4.0 [facility]2016-07-28 10:43:00 Test Item Value Reference Range Interpretation Comments A/G Ratio (test code = A/G Ratio) 1.2 0.7-1.6 [facility]2016-07-28 10:43:00 Test Item Value Reference Range Interpretation Comments B/C Ratio (test code = B/C Ratio) 23 6-25 [facility] PasoYttykdpUYPJYTIUPY6167-01-12 10:43:00 Test Item Value Reference Range Interpretation Comments RBC (test code = RBC) 4.18 4.20-5.40 [facility] PasoWbaplvuIJBLVWZVEY9842-06-38 10:43:00 Test Item Value Reference Range Interpretation Comments WBC (test code = WBC) 6.7 3.7-10.4 [facility] PasoKruiebzBJEBXYHQYK4122-49-62 10:43:00 Test Item Value Reference Range Interpretation Comments MPV (test code = MPV) 9.3 7.4-10.4 [facility] PasoSwopnqyHEVXSUPDNG6787-07-01 10:43:00 Test Item Value Reference Range Interpretation Comments Platelet (test code = Platelet) 159 133-450 [facility] PasoBldbogsTPRXXHLXIQ6897-83-97 10:43:00 Test Item Value Reference Range Interpretation Comments RDW (test code = RDW) 12.8 11.5-14.5 [facility] PasoZfxlfqxFXRZMPKAGR5144-89-66 10:43:00 Test Item Value Reference Range Interpretation Comments MCH (test code = MCH) 30.7 pg 27.0-31.0 [facility] PasoSrjuesiOTIGLMIKNX4905-88-05 10:43:00 Test Item Value Reference Range Interpretation Comments MCV (test code = MCV) 93.8 80.0-98.0 [facility] PasoRrfqqgsDBHVMESNMO2062-51-56 10:43:00 Test Item Value Reference Range Interpretation Comments Hct (test code = Hct) 39.2 36.0-48.0 [facility] PasoLcfqcfoDJGOJFQMKH0099-58-00 10:43:00 Test Item Value Reference Range Interpretation Comments Hgb (test code = Hgb) 12.8 12.0-16.0 [facility] PasoBrumggkMZCEBIJHQS9608-22-69 10:43:00 Test Item Value Reference Range Interpretation Comments MCHC (test code = MCHC) 32.8 32.0-36.0 [facility] PasoZvdgnrbNQYFKFDPEP7968-32-03 10:43:00 Test Item Value Reference Range Interpretation Comments Lymphocytes (test code = Lymphocytes) 21.4 20.0-40.0 [facility] PasoKyaqafzKTZJBOHBVI9896-70-49 10:43:00 Test Item Value Reference Range Interpretation Comments Segs (test code = Segs) 64.1 45.0-75.0 [facility] PasoPqcxqetYRDJNDHLDJ9169-62-62 10:43:00 Test Item Value Reference Range Interpretation Comments Eosinophils (test code = 3.1 See_Comment [A utomated message] The Eosinophils) system which ge nerated this result tra nsmitted reference range : <=4.0. The reference r leatha was not used to int erpret this result as normal/abnormal . [facility] PasoWogppatLSUSGWXDOP5654-73-36 10:43:00 Test Item Value Reference Range Interpretation Comments Monocytes (test code = Monocytes) 10.9 2.0-12.0 [facility] PasoPacwomhKHPRRODGAQ0366-89-26 10:43:00 Test Item Value Reference Range Interpretation Comments Basophils (test code = 0.5 See_Comment [Aut omated message] The Basophils) system which ge nerated this result tra nsmitted reference range : <=1.0. The reference r leatha was not used to int erpret this result as normal/abnormal . [facility] PasoUgfnwceONKUQUFGKP6835-46-21 10:43:00 Test Item Value Reference Range Interpretation Comments Basophils # (test code 0.0 See_Comment [Aut omated message] The = Basophils #) system which generated this result tra nsmitted reference range : <=0.2. The reference r leatha was not used to int erpret this result as normal/abnormal . [facility] PasoZfbbdfuMAPLBQOTDG7203-52-43 10:43:00 Test Item Value Reference Range Interpretation Comments Eosinophils # (test code 0.2 See_Comment [A utomated message] The = Eosinophils #) system wh h generated this result tra nsmitted reference range : <=0.5. The reference r leatha was not used to int erpret this result as normal/abnormal . [facility] PasoQifncqpVVDNYDMWXD7209-53-99 10:43:00 Test Item Value Reference Range Interpretation Comments Monocytes # (test code 0.7 See_Comment [Aut omated message] The = Monocytes #) system which generated this result tra nsmitted reference range : <=0.8. The reference r leatha was not used to int erpret this result as normal/abnormal . [facility] PasoHxommeyLMDFSAEKIC5114-75-45 10:43:00 Test Item Value Reference Range Interpretation Comments Lymphocytes # (test code = Lymphocytes 1.4 1.0-5.5 #) [facility] PasoUfosrunPJZFMEQLIL4894-45-28 10:43:00 Test Item Value Reference Range Interpretation Comments Segs-Bands # (test code = Segs-Bands #) 4.3 1.5-8.1 [facility]2016-07-28 10:43:00 Test Item Value Reference Range Interpretation Comments Total Protein (test code = Total 4.9 6.4-8.4 Protein) [facility]2016-07-28 10:43:00 Test Item Value Reference Range Interpretation Comments Alk Phos (test code = Alk Phos) 60 39-136 [facility]2016-07-28 10:43:00 Test Item Value Reference Range Interpretation Comments Bili Total (test code = Bili Total) 0.4 0.2-1.3 [facility]2016-07-28 10:43:00 Test Item Value Reference Range Interpretation Comments ALT (test code = ALT) 22 See_Comment [Auto mated message] The system which ge nerated this result transmit juan reference range : <=65. The reference range was not used to interpr et this result as polina l/abnormal. [facility]2016-07-28 10:43:00 Test Item Value Reference Range Interpretation Comments AST (test code = AST) 12 See_Comment [Auto mated message] The system which ge nerated this result transmit juan reference range : <=37. The reference range was not used to interpr et this result as polina l/abnormal. [facility]2016-07-28 10:43:00 Test Item Value Reference Range Interpretation Comments Albumin Lvl (test code = Albumin Lvl) 2.7 3.5-5.0 [facility]2016-07-28 10:43:00 Test Item Value Reference Range Interpretation Comments Globulin (test code = Globulin) 2.2 2.0-4.0 [facility]2016-07-28 10:43:00 Test Item Value Reference Range Interpretation Comments A/G Ratio (test code = A/G Ratio) 1.2 0.7-1.6 [facility]2016-07-28 10:43:00 Test Item Value Reference Range Interpretation Comments B/C Ratio (test code = B/C Ratio) 23 6-25 [facility] PasoCqwpblhKJKDROEPTM4282-41-25 10:43:00 Test Item Value Reference Range Interpretation Comments RBC (test code = RBC) 4.18 4.20-5.40 [facility] PasoPsguzqvOVYIGDTDVD5212-56-00 10:43:00 Test Item Value Reference Range Interpretation Comments WBC (test code = WBC) 6.7 3.7-10.4 [facility] PasoDfawzxgHWNDYEOWXK6556-10-21 10:43:00 Test Item Value Reference Range Interpretation Comments MPV (test code = MPV) 9.3 7.4-10.4 [facility] PasoRfmkjrhAXARKLMRVU5870-83-16 10:43:00 Test Item Value Reference Range Interpretation Comments Platelet (test code = Platelet) 159 133-450 [facility] PasoZcbacbxOQMJCDNCOQ5284-97-40 10:43:00 Test Item Value Reference Range Interpretation Comments RDW (test code = RDW) 12.8 11.5-14.5 [facility]2016-07-28 10:43:00 Test Item Value Reference Range Interpretation Comments Total Protein (test code = Total 4.9 6.4-8.4 Protein) [facility]2016-07-28 10:43:00 Test Item Value Reference Range Interpretation Comments Alk Phos (test code = Alk Phos) 60 39-136 [facility] PasoGozchjnPFZWBCTISO0814-71-89 10:43:00 Test Item Value Reference Range Interpretation Comments MCH (test code = MCH) 30.7 pg 27.0-31.0 [facility]2016-07-28 10:43:00 Test Item Value Reference Range Interpretation Comments Bili Total (test code = Bili Total) 0.4 0.2-1.3 [facility]2016-07-28 10:43:00 Test Item Value Reference Range Interpretation Comments ALT (test code = ALT) 22 See_Comment [Auto mated message] The system which ge nerated this result transmit juan reference range : <=65. The reference range was not used to interpr et this result as polina l/abnormal. [facility]2016-07-28 10:43:00 Test Item Value Reference Range Interpretation Comments AST (test code = AST) 12 See_Comment [Auto mated message] The system which ge nerated this result transmit juan reference range : <=37. The reference range was not used to interpr et this result as polina l/abnormal. [facility]2016-07-28 10:43:00 Test Item Value Reference Range Interpretation Comments Albumin Lvl (test code = Albumin Lvl) 2.7 3.5-5.0 [facility]2016-07-28 10:43:00 Test Item Value Reference Range Interpretation Comments Globulin (test code = Globulin) 2.2 2.0-4.0 [facility]2016-07-28 10:43:00 Test Item Value Reference Range Interpretation Comments A/G Ratio (test code = A/G Ratio) 1.2 0.7-1.6 [facility]2016-07-28 10:43:00 Test Item Value Reference Range Interpretation Comments B/C Ratio (test code = B/C Ratio) 23 6-25 [facility]DuiplydZSFHKCVVIT0169-48-43 10:43:00 Test Item Value Reference Range Interpretation Comments RBC (test code = RBC) 4.18 4.20-5.40 [facility] PasoJcfihluQZRJPBZWHE3487-00-58 10:43:00 Test Item Value Reference Range Interpretation Comments WBC (test code = WBC) 6.7 3.7-10.4 [facility] PasoEomqabaSSOSPAEGDX7593-63-39 10:43:00 Test Item Value Reference Range Interpretation Comments MPV (test code = MPV) 9.3 7.4-10.4 [facility] PasoQipfqgqLXETXCJAMO5577-01-85 10:43:00 Test Item Value Reference Range Interpretation Comments MCV (test code = MCV) 93.8 80.0-98.0 [facility] PasoAxygalnLIGAHCAIAT1873-96-86 10:43:00 Test Item Value Reference Range Interpretation Comments Platelet (test code = Platelet) 159 133-450 [facility] PasoOvsuwzoRFDOTNUQGW3866-15-80 10:43:00 Test Item Value Reference Range Interpretation Comments RDW (test code = RDW) 12.8 11.5-14.5 [facility] PasoZajmzglAMZJZQWHBN8171-55-18 10:43:00 Test Item Value Reference Range Interpretation Comments MCH (test code = MCH) 30.7 pg 27.0-31.0 [facility] PasoEddpxynJWDSUAETTL8561-03-08 10:43:00 Test Item Value Reference Range Interpretation Comments MCV (test code = MCV) 93.8 80.0-98.0 [facility] PasoEkdrsxkIZOUFJBQJQ4401-01-88 10:43:00 Test Item Value Reference Range Interpretation Comments Hct (test code = Hct) 39.2 36.0-48.0 [facility] PasoUwlkbkbOGRAQNLJAO6913-81-75 10:43:00 Test Item Value Reference Range Interpretation Comments Hgb (test code = Hgb) 12.8 12.0-16.0 [facility] PasoXcukpteFSZRJNLYVZ9058-83-81 10:43:00 Test Item Value Reference Range Interpretation Comments MCHC (test code = MCHC) 32.8 32.0-36.0 [facility] PasoCunikbnPEQSEVQIWJ6475-28-69 10:43:00 Test Item Value Reference Range Interpretation Comments Lymphocytes (test code = Lymphocytes) 21.4 20.0-40.0 [facility] PasoHveketbBWDHSJWPXG4439-32-36 10:43:00 Test Item Value Reference Range Interpretation Comments Segs (test code = Segs) 64.1 45.0-75.0 [facility] PasoTjzmnhzOVXTJVVKXK1853-98-14 10:43:00 Test Item Value Reference Range Interpretation Comments Eosinophils (test code = 3.1 See_Comment [A utomated message] The Eosinophils) system which ge nerated this result tra nsmitted reference range : <=4.0. The reference r leatha was not used to int erpret this result as normal/abnormal . [facility] PasoIbmgkawEXIWPMSERF8855-99-72 10:43:00 Test Item Value Reference Range Interpretation Comments Hct (test code = Hct) 39.2 36.0-48.0 [facility] PasoQcgvalpVKISUKSJVW2761-72-07 10:43:00 Test Item Value Reference Range Interpretation Comments Monocytes (test code = Monocytes) 10.9 2.0-12.0 [facility] PasoWcvpuvzYFFFTXIEQR9483-78-31 10:43:00 Test Item Value Reference Range Interpretation Comments Basophils (test code = 0.5 See_Comment [Aut omated message] The Basophils) system which ge nerated this result tra nsmitted reference range : <=1.0. The reference r leatha was not used to int erpret this result as normal/abnormal . [facility] PasoKkobgggOHFLFLBFRW4066-16-96 10:43:00 Test Item Value Reference Range Interpretation Comments Basophils # (test code 0.0 See_Comment [Aut omated message] The = Basophils #) system which generated this result tra nsmitted reference range : <=0.2. The reference r leatha was not used to int erpret this result as normal/abnormal . [facility] PasoFesjfoqHHEZBRXGKB8596-91-75 10:43:00 Test Item Value Reference Range Interpretation Comments Eosinophils # (test code 0.2 See_Comment [A utomated message] The = Eosinophils #) system whic h generated this result tra nsmitted reference range : <=0.5. The reference r leatha was not used to int erpret this result as normal/abnormal . [facility] PasoVdrrzdcUIWCJACIJB3806-93-10 10:43:00 Test Item Value Reference Range Interpretation Comments Monocytes # (test code 0.7 See_Comment [Aut omated message] The = Monocytes #) system which generated this result tra nsmitted reference range : <=0.8. The reference r leatha was not used to int erpret this result as normal/abnormal . [facility] PasoEvwmooiLJKRFSJKYP1879-66-31 10:43:00 Test Item Value Reference Range Interpretation Comments Lymphocytes # (test code = Lymphocytes 1.4 1.0-5.5 #) [facility] PasoXfybdlbQDAPXRTWSM4187-31-86 10:43:00 Test Item Value Reference Range Interpretation Comments Segs-Bands # (test code = Segs-Bands #) 4.3 1.5-8.1 [facility] PasoSlbtqssAKUEUTUBQY3141-37-18 10:43:00 Test Item Value Reference Range Interpretation Comments Hgb (test code = Hgb) 12.8 12.0-16.0 [facility] PasoFeqgnllPURMFTDAZY3176-04-47 10:43:00 Test Item Value Reference Range Interpretation Comments MCHC (test code = MCHC) 32.8 32.0-36.0 [facility] PasoVmjayfpCKDCTWUFMI3643-33-07 10:43:00 Test Item Value Reference Range Interpretation Comments Lymphocytes (test code = Lymphocytes) 21.4 20.0-40.0 [facility] PasoKzhvxgoDXZTZMHDRM1932-60-78 10:43:00 Test Item Value Reference Range Interpretation Comments Segs (test code = Segs) 64.1 45.0-75.0 [facility] PasoXtpwiplAJUCLNQAKP4211-92-24 10:43:00 Test Item Value Reference Range Interpretation Comments Eosinophils (test code = 3.1 See_Comment [A utomated message] The Eosinophils) system which ge nerated this result tra nsmitted reference range : <=4.0. The reference r leatha was not used to int erpret this result as normal/abnormal . [facility] PasoVdqheuwGVSPNPMDBS8267-38-10 10:43:00 Test Item Value Reference Range Interpretation Comments Monocytes (test code = Monocytes) 10.9 2.0-12.0 [facility] PasoIygfgjkGVQFFENLPY7585-78-99 10:43:00 Test Item Value Reference Range Interpretation Comments Basophils (test code = 0.5 See_Comment [Aut omated message] The Basophils) system which ge nerated this result tra nsmitted reference range : <=1.0. The reference r leatha was not used to int erpret this result as normal/abnormal . [facility] PasoVbjaokqTFVFBWWFGH7779-38-82 10:43:00 Test Item Value Reference Range Interpretation Comments Basophils # (test code 0.0 See_Comment [Aut omated message] The = Basophils #) system which generated this result tra nsmitted reference range : <=0.2. The reference r leatha was not used to int erpret this result as normal/abnormal . [facility] PasoPjibhzqBVQUCCTPRJ6394-09-55 10:43:00 Test Item Value Reference Range Interpretation Comments Eosinophils # (test code 0.2 See_Comment [A utomated message] The = Eosinophils #) system [facility] generated this result tra nsmitted reference range : <=0.5. The reference r leatha was not used to int erpret this result as normal/abnormal . [facility] PasoXzcurbpQEWAEPPKYH9865-46-22 10:43:00 Test Item Value Reference Range Interpretation Comments Monocytes # (test code 0.7 See_Comment [Aut omated message] The = Monocytes #) system which generated this result tra nsmitted reference range : <=0.8. The reference r leatha was not used to int erpret this result as normal/abnormal . [facility] PasoRazctswWWGYAIZFRY3482-48-76 10:43:00 Test Item Value Reference Range Interpretation Comments Lymphocytes # (test code = Lymphocytes 1.4 1.0-5.5 #) [facility] PasoNpvtdvcKZNMZWPKBL1680-88-94 10:43:00 Test Item Value Reference Range Interpretation Comments Segs-Bands # (test code = Segs-Bands #) 4.3 1.5-8.1 [facility]2016-07-28 10:43:00 Test Item Value Reference Range Interpretation Comments Total Protein (test code = Total 4.9 6.4-8.4 Protein) [facility]2016-07-28 10:43:00 Test Item Value Reference Range Interpretation Comments Alk Phos (test code = Alk Phos) 60 39-136 [facility]2016-07-28 10:43:00 Test Item Value Reference Range Interpretation Comments Bili Total (test code = Bili Total) 0.4 0.2-1.3 [facility]2016-07-28 10:43:00 Test Item Value Reference Range Interpretation Comments ALT (test code = ALT) 22 <=65 [facility]2016-07-28 10:43:00 Test Item Value Reference Range Interpretation Comments AST (test code = AST) 12 <=37 [facility]2016-07-28 10:43:00 Test Item Value Reference Range Interpretation Comments Albumin Lvl (test code = Albumin Lvl) 2.7 3.5-5.0 [facility]2016-07-28 10:43:00 Test Item Value Reference Range Interpretation Comments Globulin (test code = Globulin) 2.2 2.0-4.0 [facility]2016-07-28 10:43:00 Test Item Value Reference Range Interpretation Comments A/G Ratio (test code = A/G Ratio) 1.2 0.7-1.6 [facility]2016-07-28 10:43:00 Test Item Value Reference Range Interpretation Comments B/C Ratio (test code = B/C Ratio) 23 6-25 [facility] PasoUercvzqRZVJGNIPGW6368-96-77 10:43:00 Test Item Value Reference Range Interpretation Comments RBC (test code = RBC) 4.18 4.20-5.40 [facility] PasoHplvfygWKCCZTKNTI1870-99-40 10:43:00 Test Item Value Reference Range Interpretation Comments WBC (test code = WBC) 6.7 3.7-10.4 [place] 254356-07-28 10:43:00 Test Item Value Reference Range Interpretation Comments MPV (test code = MPV) 9.3 7.4-10.4 [facility] PasoHblxacmEKTZNGZCFW5782-74-87 10:43:00 Test Item Value Reference Range Interpretation Comments Platelet (test code = Platelet) 159 133-450 [facility] PasoBriwdppALLGTSXORQ2312-01-77 10:43:00 Test Item Value Reference Range Interpretation Comments RDW (test code = RDW) 12.8 11.5-14.5 [facility] PasoDfohpzjKORLJPARGD6385-42-60 10:43:00 Test Item Value Reference Range Interpretation Comments MCH (test code = MCH) 30.7 pg 27.0-31.0 [facility] PasoQtdhsjiNEBXIQOAER9553-48-69 10:43:00 Test Item Value Reference Range Interpretation Comments MCV (test code = MCV) 93.8 80.0-98.0 [facility] PasoNdppiscDLWWALXOEF4856-72-77 10:43:00 Test Item Value Reference Range Interpretation Comments Hct (test code = Hct) 39.2 36.0-48.0 [facility] PasoJuhtdkgPHZTMCUJQT6547-41-28 10:43:00 Test Item Value Reference Range Interpretation Comments Hgb (test code = Hgb) 12.8 12.0-16.0 [facility] PasoBeuovfbXMUHNPTQEC9054-24-95 10:43:00 Test Item Value Reference Range Interpretation Comments MCHC (test code = MCHC) 32.8 32.0-36.0 [facility] PasoWahbdlcOTZYHMOSAN4242-26-78 10:43:00 Test Item Value Reference Range Interpretation Comments Lymphocytes (test code = Lymphocytes) 21.4 20.0-40.0 [facility] PasoYskdtdvOFBSNWSXQG0124-02-33 10:43:00 Test Item Value Reference Range Interpretation Comments Segs (test code = Segs) 64.1 45.0-75.0 [facility] PasoErhenwoOARGICAAMJ1711-55-61 10:43:00 Test Item Value Reference Range Interpretation Comments Eosinophils (test code = Eosinophils) 3.1 <=4.0 [facility] PasoVnuyqbwEJTCUCFKIV3881-90-00 10:43:00 Test Item Value Reference Range Interpretation Comments Monocytes (test code = Monocytes) 10.9 2.0-12.0 [facility] PasoFfmctyxGPEKRFUBLY1574-25-87 10:43:00 Test Item Value Reference Range Interpretation Comments Basophils (test code = Basophils) 0.5 <=1.0 [facility] PasoLnmqhfrWJXJLXNQDB8087-65-42 10:43:00 Test Item Value Reference Range Interpretation Comments Basophils # (test code = Basophils #) 0.0 <=0.2 [facility] PasoLwrokrwJPRSICAUPT5549-98-45 10:43:00 Test Item Value Reference Range Interpretation Comments Eosinophils # (test code = Eosinophils 0.2 <=0.5 #) [facility] PasoSxqsrltQOWMPRIQOG7210-79-82 10:43:00 Test Item Value Reference Range Interpretation Comments Monocytes # (test code = Monocytes #) 0.7 <=0.8 [facility] PasoLluzhrwKCYHMNPZPE5361-29-50 10:43:00 Test Item Value Reference Range Interpretation Comments Lymphocytes # (test code = Lymphocytes 1.4 1.0-5.5 #) [facility] PasoIunsvrdBBRXONWBOA2110-45-62 10:43:00 Test Item Value Reference Range Interpretation Comments Segs-Bands # (test code = Segs-Bands #) 4.3 1.5-8.1 [facility]2016-07-28 10:43:00 Test Item Value Reference Range Interpretation Comments Total Protein (test code = Total 4.9 6.4-8.4 Protein) [facility]2016-07-28 10:43:00 Test Item Value Reference Range Interpretation Comments Alk Phos (test code = Alk Phos) 60 39-136 [facility]2016-07-28 10:43:00 Test Item Value Reference Range Interpretation Comments Bili Total (test code = Bili Total) 0.4 0.2-1.3 [facility]2016-07-28 10:43:00 Test Item Value Reference Range Interpretation Comments ALT (test code = ALT) 22 <=65 [facility]2016-07-28 10:43:00 Test Item Value Reference Range Interpretation Comments AST (test code = AST) 12 <=37 [facility]2016-07-28 10:43:00 Test Item Value Reference Range Interpretation Comments Albumin Lvl (test code = Albumin Lvl) 2.7 3.5-5.0 [facility]2016-07-28 10:43:00 Test Item Value Reference Range Interpretation Comments Globulin (test code = Globulin) 2.2 2.0-4.0 [facility]2016-07-28 10:43:00 Test Item Value Reference Range Interpretation Comments A/G Ratio (test code = A/G Ratio) 1.2 0.7-1.6 [facility]2016-07-28 10:43:00 Test Item Value Reference Range Interpretation Comments B/C Ratio (test code = B/C Ratio) 23 6-25 [facility] PasoQnonpltGMZKZPXIZO2294-82-18 10:43:00 Test Item Value Reference Range Interpretation Comments RBC (test code = RBC) 4.18 4.20-5.40 [facility] PasoEhgxgoxJQWFNCSSIC7372-02-59 10:43:00 Test Item Value Reference Range Interpretation Comments WBC (test code = WBC) 6.7 3.7-10.4 [facility] PasoNuzxderQAFDYSRVUH6746-51-35 10:43:00 Test Item Value Reference Range Interpretation Comments MPV (test code = MPV) 9.3 7.4-10.4 [facility] PasoTalsufdSOTEYIMAYO6864-40-68 10:43:00 Test Item Value Reference Range Interpretation Comments Platelet (test code = Platelet) 159 133-450 [facility] PasoOavxnzaMRWTQTHCTV1473-55-31 10:43:00 Test Item Value Reference Range Interpretation Comments RDW (test code = RDW) 12.8 11.5-14.5 [facility] PasoTqvtkitFTGJLSHXKX8135-60-07 10:43:00 Test Item Value Reference Range Interpretation Comments MCH (test code = MCH) 30.7 pg 27.0-31.0 [facility] PasoQomvgajFYIVBMUPFF4577-27-24 10:43:00 Test Item Value Reference Range Interpretation Comments MCV (test code = MCV) 93.8 80.0-98.0 [facility] PasoUvoyhslXROCHGPEMT4922-57-74 10:43:00 Test Item Value Reference Range Interpretation Comments Hct (test code = Hct) 39.2 36.0-48.0 [facility] PasoUddicfqQISBQBZBRP3090-22-96 10:43:00 Test Item Value Reference Range Interpretation Comments Hgb (test code = Hgb) 12.8 12.0-16.0 [facility] PasoIeixchjHAPQCHYVTZ6093-46-64 10:43:00 Test Item Value Reference Range Interpretation Comments MCHC (test code = MCHC) 32.8 32.0-36.0 [facility] PasoTrsiomuUURZFGOKXW4588-36-54 10:43:00 Test Item Value Reference Range Interpretation Comments Lymphocytes (test code = Lymphocytes) 21.4 20.0-40.0 [facility] PasoOhivlkrKNAQFFUXFC5298-71-09 10:43:00 Test Item Value Reference Range Interpretation Comments Segs (test code = Segs) 64.1 45.0-75.0 [facility] PasoRhvhzwcHSOIGDOVMU2492-98-19 10:43:00 Test Item Value Reference Range Interpretation Comments Eosinophils (test code = Eosinophils) 3.1 <=4.0 [facility] PasoStacbevRMAJOFCHPL3393-55-64 10:43:00 Test Item Value Reference Range Interpretation Comments Monocytes (test code = Monocytes) 10.9 2.0-12.0 [facility] PasoAnaouydKRPDGGCLQD7107-51-49 10:43:00 Test Item Value Reference Range Interpretation Comments Basophils (test code = Basophils) 0.5 <=1.0 [facility] PasoWsikuvvXLFGTHBPGO3031-84-27 10:43:00 Test Item Value Reference Range Interpretation Comments Basophils # (test code = Basophils #) 0.0 <=0.2 [facility] PasoMzdtyieZNAVSAEZYZ3413-33-06 10:43:00 Test Item Value Reference Range Interpretation Comments Eosinophils # (test code = Eosinophils 0.2 <=0.5 #) [facility] PasoJarwnbkUTXAARNTOF5732-99-25 10:43:00 Test Item Value Reference Range Interpretation Comments Monocytes # (test code = Monocytes #) 0.7 <=0.8 [facility] PasoNkvvhtiZVZDXYIANM2457-51-29 10:43:00 Test Item Value Reference Range Interpretation Comments Lymphocytes # (test code = Lymphocytes 1.4 1.0-5.5 #) [facility] PasoCohijgxACLDQSOOWB5187-67-52 10:43:00 Test Item Value Reference Range Interpretation Comments Segs-Bands # (test code = Segs-Bands #) 4.3 1.5-8.1 [facility]2016-07-28 10:43:00 Test Item Value Reference Range Interpretation Comments Total Protein (test code = Total 4.9 6.4-8.4 Protein) [facility]2016-07-28 10:43:00 Test Item Value Reference Range Interpretation Comments Alk Phos (test code = Alk Phos) 60 39-136 [facility]2016-07-28 10:43:00 Test Item Value Reference Range Interpretation Comments Bili Total (test code = Bili Total) 0.4 0.2-1.3 [facility]2016-07-28 10:43:00 Test Item Value Reference Range Interpretation Comments ALT (test code = ALT) 22 <=65 [facility]2016-07-28 10:43:00 Test Item Value Reference Range Interpretation Comments AST (test code = AST) 12 <=37 [facility]2016-07-28 10:43:00 Test Item Value Reference Range Interpretation Comments Albumin Lvl (test code = Albumin Lvl) 2.7 3.5-5.0 [facility]2016-07-28 10:43:00 Test Item Value Reference Range Interpretation Comments Globulin (test code = Globulin) 2.2 2.0-4.0 [facility]2016-07-28 10:43:00 Test Item Value Reference Range Interpretation Comments A/G Ratio (test code = A/G Ratio) 1.2 0.7-1.6 [facility]2016-07-28 10:43:00 Test Item Value Reference Range Interpretation Comments B/C Ratio (test code = B/C Ratio) 23 6-25 [facility] PasoSssyxvuBCCXUHZEYN8903-46-86 10:43:00 Test Item Value Reference Range Interpretation Comments RBC (test code = RBC) 4.18 4.20-5.40 [facility] PasoCcbouqyPKKKDGKILQ3858-62-20 10:43:00 Test Item Value Reference Range Interpretation Comments WBC (test code = WBC) 6.7 3.7-10.4 [facility] PasoOlgzsyvLFQVPPYXHA4318-18-90 10:43:00 Test Item Value Reference Range Interpretation Comments MPV (test code = MPV) 9.3 7.4-10.4 [facility] PasoCiqjqsgJMXSPJWTMG4536-30-76 10:43:00 Test Item Value Reference Range Interpretation Comments Platelet (test code = Platelet) 159 133-450 [facility] PasoEppadylHLTSBCNDHR1921-71-93 10:43:00 Test Item Value Reference Range Interpretation Comments RDW (test code = RDW) 12.8 11.5-14.5 [facility] PasoAuretpmOSQAOUHOCQ9889-75-80 10:43:00 Test Item Value Reference Range Interpretation Comments MCH (test code = MCH) 30.7 pg 27.0-31.0 [facility] PasoEzyluvnHTMIQXKCVA9364-70-68 10:43:00 Test Item Value Reference Range Interpretation Comments MCV (test code = MCV) 93.8 80.0-98.0 [facility] PasoAtoxcpsRJYZBYXOQL6348-15-86 10:43:00 Test Item Value Reference Range Interpretation Comments Hct (test code = Hct) 39.2 36.0-48.0 [facility] PasoCasconqFQBKIRXMOR0039-87-98 10:43:00 Test Item Value Reference Range Interpretation Comments Hgb (test code = Hgb) 12.8 12.0-16.0 [facility] PasoVsniuqyPLWUAPYEQI1453-28-97 10:43:00 Test Item Value Reference Range Interpretation Comments MCHC (test code = MCHC) 32.8 32.0-36.0 [facility] PasoJaeldopYERTNPSZUQ8432-68-51 10:43:00 Test Item Value Reference Range Interpretation Comments Lymphocytes (test code = Lymphocytes) 21.4 20.0-40.0 [facility] PasoEupfejdSFWOPLPGZN5057-82-26 10:43:00 Test Item Value Reference Range Interpretation Comments Segs (test code = Segs) 64.1 45.0-75.0 [facility] PasoLwqddyuOSCMKHDNQV3678-88-32 10:43:00 Test Item Value Reference Range Interpretation Comments Eosinophils (test code = Eosinophils) 3.1 <=4.0 [facility] PasoKcxkbcvFVCJZIDKHQ1416-60-68 10:43:00 Test Item Value Reference Range Interpretation Comments Monocytes (test code = Monocytes) 10.9 2.0-12.0 [facility] PasoIkudianRVZVPPFGQI4985-17-21 10:43:00 Test Item Value Reference Range Interpretation Comments Basophils (test code = Basophils) 0.5 <=1.0 [facility] PasoJhawmcxJBJRFXSSDA8413-85-52 10:43:00 Test Item Value Reference Range Interpretation Comments Basophils # (test code = Basophils #) 0.0 <=0.2 [facility] PasoYwruwodHNOLPJTRXU4239-31-14 10:43:00 Test Item Value Reference Range Interpretation Comments Eosinophils # (test code = Eosinophils 0.2 <=0.5 #) [facility] PasoZprifznMIIPMKAJYX4812-61-13 10:43:00 Test Item Value Reference Range Interpretation Comments Monocytes # (test code = Monocytes #) 0.7 <=0.8 [facility] PasoBfdfuevEIXYUAOIXU6197-88-60 10:43:00 Test Item Value Reference Range Interpretation Comments Lymphocytes # (test code = Lymphocytes 1.4 1.0-5.5 #) [facility] PasoEvnjjtgDJYWCUCZSX4280-97-83 10:43:00 Test Item Value Reference Range Interpretation Comments Segs-Bands # (test code = Segs-Bands #) 4.3 1.5-8.1 [facility]2016-07-28 10:43:00 Test Item Value Reference Range Interpretation Comments Total Protein (test code = Total 4.9 6.4-8.4 Protein) [facility]2016-07-28 10:43:00 Test Item Value Reference Range Interpretation Comments Alk Phos (test code = Alk Phos) 60 39-136 [facility]2016-07-28 10:43:00 Test Item Value Reference Range Interpretation Comments Bili Total (test code = Bili Total) 0.4 0.2-1.3 [facility]2016-07-28 10:43:00 Test Item Value Reference Range Interpretation Comments ALT (test code = ALT) 22 <=65 [facility]2016-07-28 10:43:00 Test Item Value Reference Range Interpretation Comments AST (test code = AST) 12 <=37 [facility]2016-07-28 10:43:00 Test Item Value Reference Range Interpretation Comments Albumin Lvl (test code = Albumin Lvl) 2.7 3.5-5.0 [facility]2016-07-28 10:43:00 Test Item Value Reference Range Interpretation Comments Globulin (test code = Globulin) 2.2 2.0-4.0 [facility]2016-07-28 10:43:00 Test Item Value Reference Range Interpretation Comments A/G Ratio (test code = A/G Ratio) 1.2 0.7-1.6 [facility]2016-07-28 10:43:00 Test Item Value Reference Range Interpretation Comments B/C Ratio (test code = B/C Ratio) 23 6-25 [facility] PasoAxhxtatUKVDEKJSXQ3589-76-48 10:43:00 Test Item Value Reference Range Interpretation Comments RBC (test code = RBC) 4.18 4.20-5.40 [facility]VxuxxhdVQNOGBDCLX1363-27-37 10:43:00 Test Item Value Reference Range Interpretation Comments WBC (test code = WBC) 6.7 3.7-10.4 [facility] PasoOhlxqmqJQIMMRTYUR6845-13-89 10:43:00 Test Item Value Reference Range Interpretation Comments MPV (test code = MPV) 9.3 7.4-10.4 [facility] PasoYyzpskvOVYAHHAAJM0392-00-71 10:43:00 Test Item Value Reference Range Interpretation Comments Platelet (test code = Platelet) 159 133-450 [facility] PasoZnethknKFXKWFTZYY6505-01-17 10:43:00 Test Item Value Reference Range Interpretation Comments RDW (test code = RDW) 12.8 11.5-14.5 [facility] PasoYmaygzpTNTHGGIUBH6985-48-88 10:43:00 Test Item Value Reference Range Interpretation Comments MCH (test code = MCH) 30.7 pg 27.0-31.0 [facility] PasoVophvsoSSMZDPLYOI8570-65-42 10:43:00 Test Item Value Reference Range Interpretation Comments MCV (test code = MCV) 93.8 80.0-98.0 [facility] PasoRpklvmmMJKJRFJBCM0013-75-51 10:43:00 Test Item Value Reference Range Interpretation Comments Hct (test code = Hct) 39.2 36.0-48.0 [facility]XvrrjfyYUQXDBYJRR1808-41-93 10:43:00 Test Item Value Reference Range Interpretation Comments Hgb (test code = Hgb) 12.8 12.0-16.0 [facility] [place]XmxezbsDUGVPSBGCP4847-53-69 10:43:00 Test Item Value Reference Range Interpretation Comments MCHC (test code = MCHC) 32.8 32.0-36.0 [facility] PasoLbtfufhWNXECMVOWP4447-41-60 10:43:00 Test Item Value Reference Range Interpretation Comments Lymphocytes (test code = Lymphocytes) 21.4 20.0-40.0 [facility] PasoHxnpsgoUETUOVWQEG8949-27-83 10:43:00 Test Item Value Reference Range Interpretation Comments Segs (test code = Segs) 64.1 45.0-75.0 [facility] PasoBblzozkPOKVMAYSNV9217-07-36 10:43:00 Test Item Value Reference Range Interpretation Comments Eosinophils (test code = Eosinophils) 3.1 <=4.0 [facility] PasoYhmgyxrIKDMZSTVCW7121-38-77 10:43:00 Test Item Value Reference Range Interpretation Comments Monocytes (test code = Monocytes) 10.9 2.0-12.0 [place] 254356-07-28 10:43:00 Test Item Value Reference Range Interpretation Comments Basophils (test code = Basophils) 0.5 <=1.0 [facility] PasoIovzippINHWGJKXNT0625-51-93 10:43:00 Test Item Value Reference Range Interpretation Comments Basophils # (test code = Basophils #) 0.0 <=0.2 [facility] PasoPwcexbbGVYDFJRCOB8372-84-64 10:43:00 Test Item Value Reference Range Interpretation Comments Eosinophils # (test code = Eosinophils 0.2 <=0.5 #) [facility] PasoApsmlvpCERDAOESMB5891-11-22 10:43:00 Test Item Value Reference Range Interpretation Comments Monocytes # (test code = Monocytes #) 0.7 <=0.8 [facility] PasoCemowudRZSFGWODFJ1789-92-37 10:43:00 Test Item Value Reference Range Interpretation Comments Lymphocytes # (test code = Lymphocytes 1.4 1.0-5.5 #) [facility] PasoZkvmcrnTUTTPTZNKK0047-55-63 10:43:00 Test Item Value Reference Range Interpretation Comments Segs-Bands # (test code = Segs-Bands #) 4.3 1.5-8.1 [facility]2016-07-28 10:43:00 Test Item Value Reference Range Interpretation Comments Total Protein (test code = Total 4.9 6.4-8.4 Protein) [facility]2016-07-28 10:43:00 Test Item Value Reference Range Interpretation Comments Alk Phos (test code = Alk Phos) 60 39-136 [facility]2016-07-28 10:43:00 Test Item Value Reference Range Interpretation Comments Bili Total (test code = Bili Total) 0.4 0.2-1.3 [facility]2016-07-28 10:43:00 Test Item Value Reference Range Interpretation Comments ALT (test code = ALT) 22 <=65 [facility]2016-07-28 10:43:00 Test Item Value Reference Range Interpretation Comments AST (test code = AST) 12 <=37 [facility]2016-07-28 10:43:00 Test Item Value Reference Range Interpretation Comments Albumin Lvl (test code = Albumin Lvl) 2.7 3.5-5.0 [facility]2016-07-28 10:43:00 Test Item Value Reference Range Interpretation Comments Globulin (test code = Globulin) 2.2 2.0-4.0 [facility] [id number] 10:43:00 Test Item Value Reference Range Interpretation Comments A/G Ratio (test code = A/G Ratio) 1.2 0.7-1.6 [facility]2016-07-28 10:43:00 Test Item Value Reference Range Interpretation Comments B/C Ratio (test code = B/C Ratio) 23 6-25 [facility] PasoLflgokpKMGWPYOMLN4911-30-68 10:43:00 Test Item Value Reference Range Interpretation Comments RBC (test code = RBC) 4.18 4.20-5.40 [facility] PasoJutokowVIFDIKXMGJ2527-61-12 10:43:00 Test Item Value Reference Range Interpretation Comments WBC (test code = WBC) 6.7 3.7-10.4 [facility] PasoKfpgvefEAAGMNLAFK2213-75-57 10:43:00 Test Item Value Reference Range Interpretation Comments MPV (test code = MPV) 9.3 7.4-10.4 [facility] PasoAtgcevfRJFKZZBRFA8093-35-57 10:43:00 Test Item Value Reference Range Interpretation Comments Platelet (test code = Platelet) 159 133-450 [facility] PasoEcbubpvLPQEQEDUGP8699-50-24 10:43:00 Test Item Value Reference Range Interpretation Comments RDW (test code = RDW) 12.8 11.5-14.5 [facility] PasoYhymhylBGXGWAVXQO1367-26-31 10:43:00 Test Item Value Reference Range Interpretation Comments MCH (test code = MCH) 30.7 pg 27.0-31.0 [facility] PasoCvpkbalHMGGVVXTFT0827-16-32 10:43:00 Test Item Value Reference Range Interpretation Comments MCV (test code = MCV) 93.8 80.0-98.0 [facility] PasoHpwcggzRHXRJZLAUX5312-83-14 10:43:00 Test Item Value Reference Range Interpretation Comments Hct (test code = Hct) 39.2 36.0-48.0 [facility] PasoPdodjmjRZBEVSOXWT7040-63-10 10:43:00 Test Item Value Reference Range Interpretation Comments Hgb (test code = Hgb) 12.8 12.0-16.0 [facility] PasoWpnmgqcMEHFSHBTTI4447-66-87 10:43:00 Test Item Value Reference Range Interpretation Comments MCHC (test code = MCHC) 32.8 32.0-36.0 [facility] PasoHxxzjzvXLZQRCSBGG2514-72-50 10:43:00 Test Item Value Reference Range Interpretation Comments Lymphocytes (test code = Lymphocytes) 21.4 20.0-40.0 [facility] PasoItghckqYHQPUXAEJM7428-02-22 10:43:00 Test Item Value Reference Range Interpretation Comments Segs (test code = Segs) 64.1 45.0-75.0 [facility] PasoZwnbmcaWYHBQCHHKW5976-99-74 10:43:00 Test Item Value Reference Range Interpretation Comments Eosinophils (test code = Eosinophils) 3.1 <=4.0 [facility] PasoLejmcawOPCLNLUCUH2098-32-04 10:43:00 Test Item Value Reference Range Interpretation Comments Monocytes (test code = Monocytes) 10.9 2.0-12.0 [facility] PasoCdxgafiXGTAZSWLVT3288-29-12 10:43:00 Test Item Value Reference Range Interpretation Comments Basophils (test code = Basophils) 0.5 <=1.0 [facility] PasoOuayxjxTNIOCWBUBQ4279-60-65 10:43:00 Test Item Value Reference Range Interpretation Comments Basophils # (test code = Basophils #) 0.0 <=0.2 [facility] PasoZxwvmzsIONLMCFMUI7874-83-16 10:43:00 Test Item Value Reference Range Interpretation Comments Eosinophils # (test code = Eosinophils 0.2 <=0.5 #) [facility] PasoLhjvqsbVFJLIKFBRI7807-43-90 10:43:00 Test Item Value Reference Range Interpretation Comments Monocytes # (test code = Monocytes #) 0.7 <=0.8 [facility]XjsjnuvURJVYFSOMB4026-47-48 10:43:00 Test Item Value Reference Range Interpretation Comments Lymphocytes # (test code = Lymphocytes 1.4 1.0-5.5 #) [facility] PasoRugfqvtQBDGAMJDPS4071-94-82 10:43:00 Test Item Value Reference Range Interpretation Comments Segs-Bands # (test code = Segs-Bands #) 4.3 1.5-8.1 [facility]2016-07-28 10:43:00 Test Item Value Reference Range Interpretation Comments Total Protein (test code = Total 4.9 6.4-8.4 Protein) [facility]2016-07-28 10:43:00 Test Item Value Reference Range Interpretation Comments Alk Phos (test code = Alk Phos) 60 39-136 [facility]2016-07-28 10:43:00 Test Item Value Reference Range Interpretation Comments Bili Total (test code = Bili Total) 0.4 0.2-1.3 [facility]2016-07-28 10:43:00 Test Item Value Reference Range Interpretation Comments ALT (test code = ALT) 22 <=65 [facility]2016-07-28 10:43:00 Test Item Value Reference Range Interpretation Comments AST (test code = AST) 12 <=37 [facility]2016-07-28 10:43:00 Test Item Value Reference Range Interpretation Comments Albumin Lvl (test code = Albumin Lvl) 2.7 3.5-5.0 [facility]2016-07-28 10:43:00 Test Item Value Reference Range Interpretation Comments Globulin (test code = Globulin) 2.2 2.0-4.0 [facility]2016-07-28 10:43:00 Test Item Value Reference Range Interpretation Comments A/G Ratio (test code = A/G Ratio) 1.2 0.7-1.6 [facility]2016-07-28 10:43:00 Test Item Value Reference Range Interpretation Comments B/C Ratio (test code = B/C Ratio) 23 6-25 [facility] PasoMkcecqpVYZMWFVUVG2800-99-36 10:43:00 Test Item Value Reference Range Interpretation Comments RBC (test code = RBC) 4.18 4.20-5.40 [facility] PasoObyzvfcQHOGIEBYGX7430-43-80 10:43:00 Test Item Value Reference Range Interpretation Comments WBC (test code = WBC) 6.7 3.7-10.4 [facility] PasoOexjakiDKOLHEKDJP5038-98-03 10:43:00 Test Item Value Reference Range Interpretation Comments MPV (test code = MPV) 9.3 7.4-10.4 [facility] PasoMeawyehQRYNYVRSPN6753-76-64 10:43:00 Test Item Value Reference Range Interpretation Comments Platelet (test code = Platelet) 159 133-450 [facility] PasoTdsqazoDJBRGNUGRG8974-04-07 10:43:00 Test Item Value Reference Range Interpretation Comments RDW (test code = RDW) 12.8 11.5-14.5 [facility] PasoWblqgvrPZMOIIUAEO3732-32-04 10:43:00 Test Item Value Reference Range Interpretation Comments MCH (test code = MCH) 30.7 pg 27.0-31.0 [facility] PasoApmbwxaTAONDDALRX9216-69-97 10:43:00 Test Item Value Reference Range Interpretation Comments MCV (test code = MCV) 93.8 80.0-98.0 [facility] PasoGslvoxtJFHHFLPVYF0379-57-49 10:43:00 Test Item Value Reference Range Interpretation Comments Hct (test code = Hct) 39.2 36.0-48.0 [facility] PasoSgzxtxeXEMGKSKAED5238-23-31 10:43:00 Test Item Value Reference Range Interpretation Comments Hgb (test code = Hgb) 12.8 12.0-16.0 [facility]OuhtpncIDWRXGQIEO5722-94-65 10:43:00 Test Item Value Reference Range Interpretation Comments MCHC (test code = MCHC) 32.8 32.0-36.0 [facility] PasoUwarkiyHHROXNUYGG8518-37-33 10:43:00 Test Item Value Reference Range Interpretation Comments Lymphocytes (test code = Lymphocytes) 21.4 20.0-40.0 [facility] PasoQkbqhcnCLWTJVMSMM6830-21-30 10:43:00 Test Item Value Reference Range Interpretation Comments Segs (test code = Segs) 64.1 45.0-75.0 [facility] PasoCbjxvbbSHAYRSYSFB5088-21-45 10:43:00 Test Item Value Reference Range Interpretation Comments Eosinophils (test code = Eosinophils) 3.1 <=4.0 [facility] PasoBvwlpapQCOBCUWJPG7247-35-48 10:43:00 Test Item Value Reference Range Interpretation Comments Monocytes (test code = Monocytes) 10.9 2.0-12.0 [facility] PasoCwfkspjZJJVCYAEZC5133-53-35 10:43:00 Test Item Value Reference Range Interpretation Comments Basophils (test code = Basophils) 0.5 <=1.0 [facility] PasoJvqyyshBOURVAUTYW3324-06-95 10:43:00 Test Item Value Reference Range Interpretation Comments Basophils # (test code = Basophils #) 0.0 <=0.2 [facility] PasoRwksedeJSNZLOTZUH9451-60-66 10:43:00 Test Item Value Reference Range Interpretation Comments Eosinophils # (test code = Eosinophils 0.2 <=0.5 #) [facility]YclgoclVYKRIRKQMI4472-48-75 10:43:00 Test Item Value Reference Range Interpretation Comments Monocytes # (test code = Monocytes #) 0.7 <=0.8 [facility] PasoLdodlvaWBVXBHCZBT8006-68-49 10:43:00 Test Item Value Reference Range Interpretation Comments Lymphocytes # (test code = Lymphocytes 1.4 1.0-5.5 #) [facility] PasoTzlyljeUXUXARYVDA1012-66-65 10:43:00 Test Item Value Reference Range Interpretation Comments Segs-Bands # (test code = Segs-Bands #) 4.3 1.5-8.1 [facility]2016-07-28 10:43:00 Test Item Value Reference Range Interpretation Comments Total Protein (test code = Total 4.9 6.4-8.4 Protein) [facility]2016-07-28 10:43:00 Test Item Value Reference Range Interpretation Comments Alk Phos (test code = Alk Phos) 60 39-136 [facility]2016-07-28 10:43:00 Test Item Value Reference Range Interpretation Comments Bili Total (test code = Bili Total) 0.4 0.2-1.3 [facility]2016-07-28 10:43:00 Test Item Value Reference Range Interpretation Comments ALT (test code = ALT) 22 <=65 [facility]2016-07-28 10:43:00 Test Item Value Reference Range Interpretation Comments AST (test code = AST) 12 <=37 [facility]2016-07-28 10:43:00 Test Item Value Reference Range Interpretation Comments Albumin Lvl (test code = Albumin Lvl) 2.7 3.5-5.0 [facility]2016-07-28 10:43:00 Test Item Value Reference Range Interpretation Comments Globulin (test code = Globulin) 2.2 2.0-4.0 [facility]2016-07-28 10:43:00 Test Item Value Reference Range Interpretation Comments A/G Ratio (test code = A/G Ratio) 1.2 0.7-1.6 [facility]2016-07-28 10:43:00 Test Item Value Reference Range Interpretation Comments B/C Ratio (test code = B/C Ratio) 23 6-25 [facility] PasoHqxhodcPRHAMAWELR8947-35-38 10:43:00 Test Item Value Reference Range Interpretation Comments RBC (test code = RBC) 4.18 4.20-5.40 [facility] PasoTwhnnixOKLARXUWZZ4463-99-39 10:43:00 Test Item Value Reference Range Interpretation Comments WBC (test code = WBC) 6.7 3.7-10.4 [facility] PasoKfrbhdjBQJSWBQXED2630-47-66 10:43:00 Test Item Value Reference Range Interpretation Comments MPV (test code = MPV) 9.3 7.4-10.4 [facility] PasoYcapermCSQONIXYTV3291-68-37 10:43:00 Test Item Value Reference Range Interpretation Comments Platelet (test code = Platelet) 159 133-450 [facility] PasoMiscwbcLCFUMALWWO1992-06-58 10:43:00 Test Item Value Reference Range Interpretation Comments RDW (test code = RDW) 12.8 11.5-14.5 [facility] PasoVxdosalLGCICAYRCN7628-30-02 10:43:00 Test Item Value Reference Range Interpretation Comments MCH (test code = MCH) 30.7 pg 27.0-31.0 [facility] PasoIrqxlhiZPALDMPPDG8010-22-66 10:43:00 Test Item Value Reference Range Interpretation Comments MCV (test code = MCV) 93.8 80.0-98.0 [facility] PasoGugujozZURXWZSTAT2800-37-42 10:43:00 Test Item Value Reference Range Interpretation Comments Hct (test code = Hct) 39.2 36.0-48.0 [facility] PasoEwhjeglBNQTVTJNKF3065-83-05 10:43:00 Test Item Value Reference Range Interpretation Comments Hgb (test code = Hgb) 12.8 12.0-16.0 [facility] PasoUddhrvcGEYOIEXCLO7610-38-34 10:43:00 Test Item Value Reference Range Interpretation Comments MCHC (test code = MCHC) 32.8 32.0-36.0 [facility] PasoZbmhywhIZRJFHBZLZ6081-20-39 10:43:00 Test Item Value Reference Range Interpretation Comments Lymphocytes (test code = Lymphocytes) 21.4 20.0-40.0 [facility] PasoBewyluiQNEPHPKXTQ3779-02-74 10:43:00 Test Item Value Reference Range Interpretation Comments Segs (test code = Segs) 64.1 45.0-75.0 [facility] PasoGxoeoawWVTEUFJTAK5285-82-38 10:43:00 Test Item Value Reference Range Interpretation Comments Eosinophils (test code = Eosinophils) 3.1 <=4.0 [facility] PasoLdpbajdFLOEAHMLNS5583-61-71 10:43:00 Test Item Value Reference Range Interpretation Comments Monocytes (test code = Monocytes) 10.9 2.0-12.0 [facility] PasoVhedlugSHXWHFUMWN1829-91-59 10:43:00 Test Item Value Reference Range Interpretation Comments Basophils (test code = Basophils) 0.5 <=1.0 [facility] PasoBqvfzvlUXFHULTZQR0341-59-87 10:43:00 Test Item Value Reference Range Interpretation Comments Basophils # (test code = Basophils #) 0.0 <=0.2 [facility] PasoVlhensbKVYXEZVCQJ6923-37-59 10:43:00 Test Item Value Reference Range Interpretation Comments Eosinophils # (test code = Eosinophils 0.2 <=0.5 #) [facility] PasoPgorbhiHALEAPTXCW2061-66-95 10:43:00 Test Item Value Reference Range Interpretation Comments Monocytes # (test code = Monocytes #) 0.7 <=0.8 [facility] PasoHwofdybJVDSUXTWKK5989-31-83 10:43:00 Test Item Value Reference Range Interpretation Comments Lymphocytes # (test code = Lymphocytes 1.4 1.0-5.5 #) [facility] PasoIroookpPNDLKROZYQ3138-02-11 10:43:00 Test Item Value Reference Range Interpretation Comments Segs-Bands # (test code = Segs-Bands #) 4.3 1.5-8.1 [facility]2016-07-28 10:43:00 Test Item Value Reference Range Interpretation Comments Total Protein (test code = Total 4.9 6.4-8.4 Protein) [facility]2016-07-28 10:43:00 Test Item Value Reference Range Interpretation Comments Alk Phos (test code = Alk Phos) 60 39-136 [facility]2016-07-28 10:43:00 Test Item Value Reference Range Interpretation Comments Bili Total (test code = Bili Total) 0.4 0.2-1.3 [facility]2016-07-28 10:43:00 Test Item Value Reference Range Interpretation Comments ALT (test code = ALT) 22 <=65 [facility]2016-07-28 10:43:00 Test Item Value Reference Range Interpretation Comments AST (test code = AST) 12 <=37 [facility]2016-07-28 10:43:00 Test Item Value Reference Range Interpretation Comments Albumin Lvl (test code = Albumin Lvl) 2.7 3.5-5.0 [facility]2016-07-28 10:43:00 Test Item Value Reference Range Interpretation Comments Globulin (test code = Globulin) 2.2 2.0-4.0 [facility]2016-07-28 10:43:00 Test Item Value Reference Range Interpretation Comments A/G Ratio (test code = A/G Ratio) 1.2 0.7-1.6 [facility]2016-07-28 10:43:00 Test Item Value Reference Range Interpretation Comments B/C Ratio (test code = B/C Ratio) 23 6-25 [facility]YwmgbeiGKUFSKWXCR5700-85-90 10:43:00 Test Item Value Reference Range Interpretation Comments RBC (test code = RBC) 4.18 4.20-5.40 [facility] PasoVrvxhqaGAOVOBORRS2779-85-27 10:43:00 Test Item Value Reference Range Interpretation Comments WBC (test code = WBC) 6.7 3.7-10.4 [facility] PasoAymppxvGXADPQBQVA7381-49-87 10:43:00 Test Item Value Reference Range Interpretation Comments MPV (test code = MPV) 9.3 7.4-10.4 [facility] PasoVymoewoIUILHCAENF6854-23-67 10:43:00 Test Item Value Reference Range Interpretation Comments Platelet (test code = Platelet) 159 133-450 [facility] PasoParyeksLGVTHLQQRJ8431-63-25 10:43:00 Test Item Value Reference Range Interpretation Comments RDW (test code = RDW) 12.8 11.5-14.5 [facility] PasoKfhatlyWQVFCUZFUL8085-95-93 10:43:00 Test Item Value Reference Range Interpretation Comments MCH (test code = MCH) 30.7 pg 27.0-31.0 [facility] PasoRxwhoklBJRYGCTDYG5581-70-26 10:43:00 Test Item Value Reference Range Interpretation Comments MCV (test code = MCV) 93.8 80.0-98.0 [facility] PasoMjpswwmYNNXNVCAUI0551-38-38 10:43:00 Test Item Value Reference Range Interpretation Comments Hct (test code = Hct) 39.2 36.0-48.0 [facility] PasoVrrpgfbIWNRYCOLGC5839-40-51 10:43:00 Test Item Value Reference Range Interpretation Comments Hgb (test code = Hgb) 12.8 12.0-16.0 [facility] PasoYaeyhknBSVJYFRGHZ9536-45-12 10:43:00 Test Item Value Reference Range Interpretation Comments MCHC (test code = MCHC) 32.8 32.0-36.0 [facility] PasoEmccjucTMVICVMQYH4211-68-73 10:43:00 Test Item Value Reference Range Interpretation Comments Lymphocytes (test code = Lymphocytes) 21.4 20.0-40.0 [facility] PasoEmemdcnITYRLGYYAR2918-75-72 10:43:00 Test Item Value Reference Range Interpretation Comments Segs (test code = Segs) 64.1 45.0-75.0 [facility] PasoNensennBEJMHYZBOS8942-04-13 10:43:00 Test Item Value Reference Range Interpretation Comments Eosinophils (test code = Eosinophils) 3.1 <=4.0 [facility] PasoWupaiywTXNSZFUKIB8596-25-07 10:43:00 Test Item Value Reference Range Interpretation Comments Monocytes (test code = Monocytes) 10.9 2.0-12.0 [facility] PasoSzozkxwJTISTOHRKL0810-54-76 10:43:00 Test Item Value Reference Range Interpretation Comments Basophils (test code = Basophils) 0.5 <=1.0 [facility] PasoXkakrdfQPIQQWMXOL3048-90-30 10:43:00 Test Item Value Reference Range Interpretation Comments Basophils # (test code = Basophils #) 0.0 <=0.2 [facility] PasoIfjpwxsMCUAGWHVLO5505-65-10 10:43:00 Test Item Value Reference Range Interpretation Comments Eosinophils # (test code = Eosinophils 0.2 <=0.5 #) [facility] PasoQljcpngOPWRPAWBYN8168-68-36 10:43:00 Test Item Value Reference Range Interpretation Comments Monocytes # (test code = Monocytes #) 0.7 <=0.8 [facility] PasoOkxvxzbGTHMNZCBMQ6624-57-78 10:43:00 Test Item Value Reference Range Interpretation Comments Lymphocytes # (test code = Lymphocytes 1.4 1.0-5.5 #) [facility] PasoWtzufraUKTSYLJQLC3229-32-05 10:43:00 Test Item Value Reference Range Interpretation Comments Segs-Bands # (test code = Segs-Bands #) 4.3 1.5-8.1 [facility]2016-07-28 10:43:00 Test Item Value Reference Range Interpretation Comments Total Protein (test code = Total 4.9 6.4-8.4 Protein) [facility]2016-07-28 10:43:00 Test Item Value Reference Range Interpretation Comments Alk Phos (test code = Alk Phos) 60 39-136 [facility]2016-07-28 10:43:00 Test Item Value Reference Range Interpretation Comments Bili Total (test code = Bili Total) 0.4 0.2-1.3 [facility]2016-07-28 10:43:00 Test Item Value Reference Range Interpretation Comments ALT (test code = ALT) 22 <=65 [facility]2016-07-28 10:43:00 Test Item Value Reference Range Interpretation Comments AST (test code = AST) 12 <=37 [facility]2016-07-28 10:43:00 Test Item Value Reference Range Interpretation Comments Albumin Lvl (test code = Albumin Lvl) 2.7 3.5-5.0 [facility]2016-07-28 10:43:00 Test Item Value Reference Range Interpretation Comments Globulin (test code = Globulin) 2.2 2.0-4.0 [facility]2016-07-28 10:43:00 Test Item Value Reference Range Interpretation Comments A/G Ratio (test code = A/G Ratio) 1.2 0.7-1.6 [facility]2016-07-28 10:43:00 Test Item Value Reference Range Interpretation Comments B/C Ratio (test code = B/C Ratio) 23 6-25 [facility] PasoYmymaziCWRVODYEUA5979-81-95 10:43:00 Test Item Value Reference Range Interpretation Comments RBC (test code = RBC) 4.18 4.20-5.40 [facility]oSqircujSAOXDFWIDY2944-50-45 10:43:00 Test Item Value Reference Range Interpretation Comments WBC (test code = WBC) 6.7 3.7-10.4 [facility] PasoLaavxvzFYWDXNSHAA0095-75-22 10:43:00 Test Item Value Reference Range Interpretation Comments MPV (test code = MPV) 9.3 7.4-10.4 [facility] PasoVupolvpWNUURMKCRR0857-62-53 10:43:00 Test Item Value Reference Range Interpretation Comments Platelet (test code = Platelet) 159 133-450 [facility] PasoFgbgqqyWSORJCUXZU6475-98-03 10:43:00 Test Item Value Reference Range Interpretation Comments RDW (test code = RDW) 12.8 11.5-14.5 [place] 254356-07-28 10:43:00 Test Item Value Reference Range Interpretation Comments MCH (test code = MCH) 30.7 pg 27.0-31.0 [facility]oSqhfsfuIAFTBEPBDS9236-15-77 10:43:00 Test Item Value Reference Range Interpretation Comments MCV (test code = MCV) 93.8 80.0-98.0 [facility] PasoCbcucutUEUNMJKIZS3366-97-79 10:43:00 Test Item Value Reference Range Interpretation Comments Hct (test code = Hct) 39.2 36.0-48.0 [facility] PasoMzyhdzoIPIPUNWXBY1486-22-33 10:43:00 Test Item Value Reference Range Interpretation Comments Hgb (test code = Hgb) 12.8 12.0-16.0 [facility] PasoAbqmweePTEYGZUEBC5049-48-76 10:43:00 Test Item Value Reference Range Interpretation Comments MCHC (test code = MCHC) 32.8 32.0-36.0 [facility]oSgyipftDAUPNUSCWX3336-27-15 10:43:00 Test Item Value Reference Range Interpretation Comments Lymphocytes (test code = Lymphocytes) 21.4 20.0-40.0 [facility] PasoShixqefTIQTGCELAH3398-06-03 10:43:00 Test Item Value Reference Range Interpretation Comments Segs (test code = Segs) 64.1 45.0-75.0 [facility] PasoTpdkbqqQDTOTOENUB9034-14-78 10:43:00 Test Item Value Reference Range Interpretation Comments Eosinophils (test code = Eosinophils) 3.1 <=4.0 [facility]oSithqrbRIYCSQHIGP7956-14-42 10:43:00 Test Item Value Reference Range Interpretation Comments Monocytes (test code = Monocytes) 10.9 2.0-12.0 [facility] PasoPjzukcgSATVTTVZQM0826-89-80 10:43:00 Test Item Value Reference Range Interpretation Comments Basophils (test code = Basophils) 0.5 <=1.0 [facility] PasoFncttuqBBSRUADUQU4046-78-68 10:43:00 Test Item Value Reference Range Interpretation Comments Basophils # (test code = Basophils #) 0.0 <=0.2 [facility] PasoTyinmiwJQEXDCGGQT8146-93-62 10:43:00 Test Item Value Reference Range Interpretation Comments Eosinophils # (test code = Eosinophils 0.2 <=0.5 #) [facility] PasoPmurvimCWJGKABIZY8949-62-53 10:43:00 Test Item Value Reference Range Interpretation Comments Monocytes # (test code = Monocytes #) 0.7 <=0.8 [facility] PasoYxxxhweTBVUPPNMYQ9015-82-85 10:43:00 Test Item Value Reference Range Interpretation Comments Lymphocytes # (test code = Lymphocytes 1.4 1.0-5.5 #) [facility] PasoFawtlgfYVGRRDNCLG3668-33-56 10:43:00 Test Item Value Reference Range Interpretation Comments Segs-Bands # (test code = Segs-Bands #) 4.3 1.5-8.1 [facility]2016-07-28 10:43:00 Test Item Value Reference Range Interpretation Comments Total Protein (test code = Total 4.9 6.4-8.4 Protein) [facility]2016-07-28 10:43:00 Test Item Value Reference Range Interpretation Comments Alk Phos (test code = Alk Phos) 60 39-136 [facility]2016-07-28 10:43:00 Test Item Value Reference Range Interpretation Comments Bili Total (test code = Bili Total) 0.4 0.2-1.3 [facility]2016-07-28 10:43:00 Test Item Value Reference Range Interpretation Comments ALT (test code = ALT) 22 <=65 [facility]2016-07-28 10:43:00 Test Item Value Reference Range Interpretation Comments AST (test code = AST) 12 <=37 [facility]2016-07-28 10:43:00 Test Item Value Reference Range Interpretation Comments Albumin Lvl (test code = Albumin Lvl) 2.7 3.5-5.0 [facility]2016-07-28 10:43:00 Test Item Value Reference Range Interpretation Comments Globulin (test code = Globulin) 2.2 2.0-4.0 [facility]2016-07-28 10:43:00 Test Item Value Reference Range Interpretation Comments A/G Ratio (test code = A/G Ratio) 1.2 0.7-1.6 [facility]2016-07-28 10:43:00 Test Item Value Reference Range Interpretation Comments B/C Ratio (test code = B/C Ratio) 23 6-25 [facility] PasoEyvjnlzITJKCFFUOK1629-60-57 10:43:00 Test Item Value Reference Range Interpretation Comments RBC (test code = RBC) 4.18 4.20-5.40 [facility] PasoFpsjixaTQURCISWBI8046-10-73 10:43:00 Test Item Value Reference Range Interpretation Comments WBC (test code = WBC) 6.7 3.7-10.4 [facility] PasoEifacbjFXEVUNNMTD4497-53-36 10:43:00 Test Item Value Reference Range Interpretation Comments MPV (test code = MPV) 9.3 7.4-10.4 [facility] PasoXcfklynAZHSVDRWWJ5250-30-82 10:43:00 Test Item Value Reference Range Interpretation Comments Platelet (test code = Platelet) 159 133-450 [facility] PasoXhtwpstBCPZZKGYOD1551-09-50 10:43:00 Test Item Value Reference Range Interpretation Comments RDW (test code = RDW) 12.8 11.5-14.5 [facility] PasoDdqwwpkKWLVLYPYVG8663-18-38 10:43:00 Test Item Value Reference Range Interpretation Comments MCH (test code = MCH) 30.7 pg 27.0-31.0 [facility] PasoIlsasbkSAPNJBUYFA5952-30-37 10:43:00 Test Item Value Reference Range Interpretation Comments MCV (test code = MCV) 93.8 80.0-98.0 [facility] PasoMvvelmrJRFRVBUGMC1336-16-01 10:43:00 Test Item Value Reference Range Interpretation Comments Hct (test code = Hct) 39.2 36.0-48.0 [facility] PasoEscyevdKGBMLQUPSQ6449-23-04 10:43:00 Test Item Value Reference Range Interpretation Comments Hgb (test code = Hgb) 12.8 12.0-16.0 [facility] PasoHkuetqkQWDFNLJZET8809-14-31 10:43:00 Test Item Value Reference Range Interpretation Comments MCHC (test code = MCHC) 32.8 32.0-36.0 [facility] PasoQfwprtxOPCRXRAKJK3776-24-77 10:43:00 Test Item Value Reference Range Interpretation Comments Lymphocytes (test code = Lymphocytes) 21.4 20.0-40.0 [facility]oShtweyvKPPRBIKBPF2351-53-28 10:43:00 Test Item Value Reference Range Interpretation Comments Segs (test code = Segs) 64.1 45.0-75.0 [facility] PasoHinkyjrPGSPEALJJF4709-00-36 10:43:00 Test Item Value Reference Range Interpretation Comments Eosinophils (test code = Eosinophils) 3.1 <=4.0 [facility] PasoRxjilkbOVMYPXVKBP4198-90-30 10:43:00 Test Item Value Reference Range Interpretation Comments Monocytes (test code = Monocytes) 10.9 2.0-12.0 [facility] PasoDrjdlmxHYKHBLTAUN9870-91-42 10:43:00 Test Item Value Reference Range Interpretation Comments Basophils (test code = Basophils) 0.5 <=1.0 [facility] PasoHufgxcwHULNYVPUIM6088-58-96 10:43:00 Test Item Value Reference Range Interpretation Comments Basophils # (test code = Basophils #) 0.0 <=0.2 [facility] PasoJrtzupqMYLWHWYZZQ9991-23-60 10:43:00 Test Item Value Reference Range Interpretation Comments Eosinophils # (test code = Eosinophils 0.2 <=0.5 #) [facility] PasoQeylzknDGPQCGWHYK0844-12-82 10:43:00 Test Item Value Reference Range Interpretation Comments Monocytes # (test code = Monocytes #) 0.7 <=0.8 [place] 254356-07-28 10:43:00 Test Item Value Reference Range Interpretation Comments Lymphocytes # (test code = Lymphocytes 1.4 1.0-5.5 #) [facility] PasoEmdgudiNELGJJXPBS0061-71-66 10:43:00 Test Item Value Reference Range Interpretation Comments Segs-Bands # (test code = Segs-Bands #) 4.3 1.5-8.1 [facility]2016-07-28 10:43:00 Test Item Value Reference Range Interpretation Comments Total Protein (test code = Total 4.9 6.4-8.4 Protein) [facility]2016-07-28 10:43:00 Test Item Value Reference Range Interpretation Comments Alk Phos (test code = Alk Phos) 60 39-136 [facility]2016-07-28 10:43:00 Test Item Value Reference Range Interpretation Comments Bili Total (test code = Bili Total) 0.4 0.2-1.3 [facility]2016-07-28 10:43:00 Test Item Value Reference Range Interpretation Comments ALT (test code = ALT) 22 See_Comment [Auto mated message] The system which ge nerated this result transmit juan reference range : <=65. The reference range was not used to interpr et this result as polina l/abnormal. [facility]2016-07-28 10:43:00 Test Item Value Reference Range Interpretation Comments AST (test code = AST) 12 See_Comment [Auto mated message] The system which ge nerated this result transmit juan reference range : <=37. The reference range was not used to interpr et this result as polina l/abnormal. [facility]2016-07-28 10:43:00 Test Item Value Reference Range Interpretation Comments Albumin Lvl (test code = Albumin Lvl) 2.7 3.5-5.0 [facility]2016-07-28 10:43:00 Test Item Value Reference Range Interpretation Comments Globulin (test code = Globulin) 2.2 2.0-4.0 [facility]2016-07-28 10:43:00 Test Item Value Reference Range Interpretation Comments A/G Ratio (test code = A/G Ratio) 1.2 0.7-1.6 [facility]2016-07-28 10:43:00 Test Item Value Reference Range Interpretation Comments B/C Ratio (test code = B/C Ratio) 23 6-25 [facility] PasoTefpsuiRIQYXQYECF5049-28-41 10:43:00 Test Item Value Reference Range Interpretation Comments RBC (test code = RBC) 4.18 4.20-5.40 [facility] PasoAujiqwxYMAHGALWUD2496-14-54 10:43:00 Test Item Value Reference Range Interpretation Comments WBC (test code = WBC) 6.7 3.7-10.4 [facility] PasoZmhrsmeMWPSCFOFPL4361-03-58 10:43:00 Test Item Value Reference Range Interpretation Comments MPV (test code = MPV) 9.3 7.4-10.4 [facility] PasoMwgomtbLDKLPPPMAR2682-78-31 10:43:00 Test Item Value Reference Range Interpretation Comments Platelet (test code = Platelet) 159 133-450 [facility] PasoAxsmjtgUAJXXPVDEV4182-59-62 10:43:00 Test Item Value Reference Range Interpretation Comments RDW (test code = RDW) 12.8 11.5-14.5 [facility] PasoDqjjvcqCKXDSBXVIY8983-90-64 10:43:00 Test Item Value Reference Range Interpretation Comments MCH (test code = MCH) 30.7 pg 27.0-31.0 [facility] PasoNrfyqewJJNXBFOSJU9246-07-80 10:43:00 Test Item Value Reference Range Interpretation Comments MCV (test code = MCV) 93.8 80.0-98.0 [facility] PasoIejhhgpKBXBJACRHX6472-27-25 10:43:00 Test Item Value Reference Range Interpretation Comments Hct (test code = Hct) 39.2 36.0-48.0 [facility] PasoCdqmiflIOUTEKAAJN2785-93-88 10:43:00 Test Item Value Reference Range Interpretation Comments Hgb (test code = Hgb) 12.8 12.0-16.0 [facility] PasoTjeqyzpMMSTJDLVYM8782-09-70 10:43:00 Test Item Value Reference Range Interpretation Comments MCHC (test code = MCHC) 32.8 32.0-36.0 [facility] PasoQshrektUCTFWEBVLQ9429-30-03 10:43:00 Test Item Value Reference Range Interpretation Comments Lymphocytes (test code = Lymphocytes) 21.4 20.0-40.0 [facility] PasoHjbbzhjKLFMPTXHXC3630-61-76 10:43:00 Test Item Value Reference Range Interpretation Comments Segs (test code = Segs) 64.1 45.0-75.0 [facility] PasoCxubrxyFFKDWNXQTN8953-64-66 10:43:00 Test Item Value Reference Range Interpretation Comments Eosinophils (test code = 3.1 See_Comment [A utomated message] The Eosinophils) system which ge nerated this result tra nsmitted reference range : <=4.0. The reference r leatha was not used to int erpret this result as normal/abnormal . [facility] PasoRlzcllxHTMAUKYLMU2821-25-11 10:43:00 Test Item Value Reference Range Interpretation Comments Monocytes (test code = Monocytes) 10.9 2.0-12.0 [facility] PasoHgyienvKSDRSKWFDA5013-61-32 10:43:00 Test Item Value Reference Range Interpretation Comments Basophils (test code = 0.5 See_Comment [Aut omated message] The Basophils) system which ge nerated this result tra nsmitted reference range : <=1.0. The reference r leatha was not used to int erpret this result as normal/abnormal . [facility] PasoGijebgiULWVUGGNZS3783-18-65 10:43:00 Test Item Value Reference Range Interpretation Comments Basophils # (test code 0.0 See_Comment [Aut omated message] The = Basophils #) system which generated this result tra nsmitted reference range : <=0.2. The reference r leatha was not used to int erpret this result as normal/abnormal . [facility] PasoVpgsgspOARYVFGENF8572-32-79 10:43:00 Test Item Value Reference Range Interpretation Comments Eosinophils # (test code 0.2 See_Comment [A utomated message] The = Eosinophils #) system whic h generated this result tra nsmitted reference range : <=0.5. The reference r leatha was not used to int erpret this result as normal/abnormal . [facility] PasoUepuhzzDTROMIDCKE2263-43-88 10:43:00 Test Item Value Reference Range Interpretation Comments Monocytes # (test code 0.7 See_Comment [Aut omated message] The = Monocytes #) system which generated this result tra nsmitted reference range : <=0.8. The reference r leatha was not used to int erpret this result as normal/abnormal . [facility] PasoLydtvrdEUCREURCXM5956-71-19 10:43:00 Test Item Value Reference Range Interpretation Comments Lymphocytes # (test code = Lymphocytes 1.4 1.0-5.5 #) [facility] PasoLgnaeuxNUBHYPGSBQ9572-18-73 10:43:00 Test Item Value Reference Range Interpretation Comments Segs-Bands # (test code = Segs-Bands #) 4.3 1.5-8.1 [facility]2016-07-28 10:43:00 Test Item Value Reference Range Interpretation Comments Total Protein (test code = Total 4.9 6.4-8.4 Protein) [facility]2016-07-28 10:43:00 Test Item Value Reference Range Interpretation Comments Alk Phos (test code = Alk Phos) 60 39-136 [facility]2016-07-28 10:43:00 Test Item Value Reference Range Interpretation Comments Bili Total (test code = Bili Total) 0.4 0.2-1.3 [facility]2016-07-28 10:43:00 Test Item Value Reference Range Interpretation Comments ALT (test code = ALT) 22 <=65 [facility]2016-07-28 10:43:00 Test Item Value Reference Range Interpretation Comments AST (test code = AST) 12 <=37 [facility]2016-07-28 10:43:00 Test Item Value Reference Range Interpretation Comments Albumin Lvl (test code = Albumin Lvl) 2.7 3.5-5.0 [facility]2016-07-28 10:43:00 Test Item Value Reference Range Interpretation Comments Globulin (test code = Globulin) 2.2 2.0-4.0 [facility] [id number] 10:43:00 Test Item Value Reference Range Interpretation Comments A/G Ratio (test code = A/G Ratio) 1.2 0.7-1.6 [facility] [id number] 10:43:00 Test Item Value Reference Range Interpretation Comments B/C Ratio (test code = B/C Ratio) 23 6-25 [facility] PasoWcpznacYAASITICNA0729-99-24 10:43:00 Test Item Value Reference Range Interpretation Comments RBC (test code = RBC) 4.18 4.20-5.40 [facility] PasoUczithbFFMHZGBOSA4360-42-35 10:43:00 Test Item Value Reference Range Interpretation Comments WBC (test code = WBC) 6.7 3.7-10.4 [facility] PasoBrkzsjxOTRVRTIRZA6336-62-66 10:43:00 Test Item Value Reference Range Interpretation Comments MPV (test code = MPV) 9.3 7.4-10.4 [facility] PasoErrhfubZWVOBWUKFD3545-70-04 10:43:00 Test Item Value Reference Range Interpretation Comments Platelet (test code = Platelet) 159 133-450 [facility] PasoHaeruecFHOQWPJMLG9970-19-91 10:43:00 Test Item Value Reference Range Interpretation Comments RDW (test code = RDW) 12.8 11.5-14.5 [facility] PasoKdadesuMCGGHNDTFO8000-94-35 10:43:00 Test Item Value Reference Range Interpretation Comments MCH (test code = MCH) 30.7 pg 27.0-31.0 [facility] PasoQhjpyzeDTVDTTNXPD4171-17-61 10:43:00 Test Item Value Reference Range Interpretation Comments MCV (test code = MCV) 93.8 80.0-98.0 [facility] PasoTkxzqzrDBUHLGBMUR8355-15-56 10:43:00 Test Item Value Reference Range Interpretation Comments Hct (test code = Hct) 39.2 36.0-48.0 [facility] PasoUwrfyrnQRCXVEYLPY3938-50-15 10:43:00 Test Item Value Reference Range Interpretation Comments Hgb (test code = Hgb) 12.8 12.0-16.0 [facility] PasoDkbhyecYPPJDGDVTD6228-40-60 10:43:00 Test Item Value Reference Range Interpretation Comments MCHC (test code = MCHC) 32.8 32.0-36.0 [facility] PasoHhqiqspJLTZRKMOMB8528-85-56 10:43:00 Test Item Value Reference Range Interpretation Comments Lymphocytes (test code = Lymphocytes) 21.4 20.0-40.0 [facility] PasoQjvyrhkEFNWXEGCWI4960-36-78 10:43:00 Test Item Value Reference Range Interpretation Comments Segs (test code = Segs) 64.1 45.0-75.0 [facility] PasoWriuwepPXUIWIUTHR7599-72-82 10:43:00 Test Item Value Reference Range Interpretation Comments Eosinophils (test code = Eosinophils) 3.1 <=4.0 [facility] PasoMcwxtnrSZZEUUBKEG9540-41-89 10:43:00 Test Item Value Reference Range Interpretation Comments Monocytes (test code = Monocytes) 10.9 2.0-12.0 [facility] PasoJlbobjpRGJCFKRQPM6263-27-94 10:43:00 Test Item Value Reference Range Interpretation Comments Basophils (test code = Basophils) 0.5 <=1.0 [facility] PasoNyrunmzEAFOZNRWAS6944-11-09 10:43:00 Test Item Value Reference Range Interpretation Comments Basophils # (test code = Basophils #) 0.0 <=0.2 [facility] PasoLrytlqnYOVNLWMRXE5776-26-03 10:43:00 Test Item Value Reference Range Interpretation Comments Eosinophils # (test code = Eosinophils 0.2 <=0.5 #) [facility] PasoDmbrpmkELMANOHIRC8429-96-69 10:43:00 Test Item Value Reference Range Interpretation Comments Monocytes # (test code = Monocytes #) 0.7 <=0.8 [facility] PasoPxgmbeaXWNJAOTDYW1843-89-35 10:43:00 Test Item Value Reference Range Interpretation Comments Lymphocytes # (test code = Lymphocytes 1.4 1.0-5.5 #) [facility] PasoQpcwdlmVCDPCBMYGB0010-13-40 10:43:00 Test Item Value Reference Range Interpretation Comments Segs-Bands # (test code = Segs-Bands #) 4.3 1.5-8.1 [facility]2016-07-26 23:48:00 Test Item Value Reference Range Interpretation Comments Magnesium Lvl (test code = Magnesium 1.8 1.8-2.4 Lvl) [facility]2016-07-26 23:48:00 Test Item Value Reference Range Interpretation Comments Phosphorus (test code = Phosphorus) 2.0 2.5-4.5 [facility] PasoBaexxapJMZDITIQNW7695-76-95 23:48:00 Test Item Value Reference Range Interpretation Comments Basophils # (test code 0.0 See_Comment [Aut omated message] The = Basophils #) system which generated this result tra nsmitted reference range : <=0.2. The reference r leatha was not used to int erpret this result as normal/abnormal . [place] [address]-07-26 23:48:00 Test Item Value Reference Range Interpretation Comments Macrocyte (test code = 1+ *ABN*(01/11/16 Macrocyte) 6:48 PM) [facility] PasoCfqxkcwKGZTZMDIBI7511-02-65 23:48:00 Test Item Value Reference Range Interpretation Comments INR (test code = INR) 0.99 0.85-1.17 [place] [address]-07-26 23:48:00 Test Item Value Reference Range Interpretation Comments PTT (test code = PTT) 23.5 s 22.9-35.8 [place] 254356-07-26 23:48:00 Test Item Value Reference Range Interpretation Comments PT (test code = PT) 13.4 s 12.0-14.7 [facility]2016-07-26 23:48:00 Test Item Value Reference Range Interpretation Comments Magnesium Lvl (test code = Magnesium 1.8 1.8-2.4 Lvl) [facility]2016-07-26 23:48:00 Test Item Value Reference Range Interpretation Comments Phosphorus (test code = Phosphorus) 2.0 2.5-4.5 [facility] PasoAgyvlhyZIXEPWWQGK6737-61-45 23:48:00 Test Item Value Reference Range Interpretation Comments Basophils # (test code 0.0 See_Comment [Aut omated message] The = Basophils #) system which generated this result tra nsmitted reference range : <=0.2. The reference r leatha was not used to int erpret this result as normal/abnormal . [facility] PasoTgolyvtZKMUKBJNQL7633-39-51 23:48:00 Test Item Value Reference Range Interpretation Comments Macrocyte (test code = 1+ *ABN*(01/11/16 Macrocyte) 6:48 PM) [place] [address]-07-26 23:48:00 Test Item Value Reference Range Interpretation Comments INR (test code = INR) 0.99 0.85-1.17 [facility] PasoBgazpxzTOBSLALRHI5511-97-31 23:48:00 Test Item Value Reference Range Interpretation Comments PTT (test code = PTT) 23.5 s 22.9-35.8 [facility] PasoUqbocxcNCRHPDIFJK9090-88-61 23:48:00 Test Item Value Reference Range Interpretation Comments PT (test code = PT) 13.4 s 12.0-14.7 [facility]2016-07-26 23:48:00 Test Item Value Reference Range Interpretation Comments Magnesium Lvl (test code = Magnesium 1.8 1.8-2.4 Lvl) [facility]2016-07-26 23:48:00 Test Item Value Reference Range Interpretation Comments Phosphorus (test code = Phosphorus) 2.0 2.5-4.5 [facility] PasoJwyebvqGMNZTVVERG3695-00-18 23:48:00 Test Item Value Reference Range Interpretation Comments Basophils # (test code 0.0 See_Comment [Aut omated message] The = Basophils #) system which generated this result tra nsmitted reference range : <=0.2. The reference r leatha was not used to int erpret this result as normal/abnormal . [facility] PasoJbddxnrFXTXABCPSB3536-51-32 23:48:00 Test Item Value Reference Range Interpretation Comments Macrocyte (test code = 1+ *ABN*(01/11/16 Macrocyte) 6:48 PM) [place] 254356-07-26 23:48:00 Test Item Value Reference Range Interpretation Comments INR (test code = INR) 0.99 0.85-1.17 [facility] PasoXnsdnvdGWJRBVKPEU1095-20-44 23:48:00 Test Item Value Reference Range Interpretation Comments PTT (test code = PTT) 23.5 s 22.9-35.8 [facility] PasoXrztpriLPVGIKHZVB7346-92-68 23:48:00 Test Item Value Reference Range Interpretation Comments PT (test code = PT) 13.4 s 12.0-14.7 [facility]2016-07-26 23:48:00 Test Item Value Reference Range Interpretation Comments Magnesium Lvl (test code = Magnesium 1.8 1.8-2.4 Lvl) [facility]2016-07-26 23:48:00 Test Item Value Reference Range Interpretation Comments Phosphorus (test code = Phosphorus) 2.0 2.5-4.5 [facility] PasoHnggdpmNUVCGTNSTH8860-85-77 23:48:00 Test Item Value Reference Range Interpretation Comments Basophils # (test code 0.0 See_Comment [Aut omated message] The = Basophils #) system which generated this result tra nsmitted reference range : <=0.2. The reference r leatha was not used to int erpret this result as normal/abnormal . [facility] PasoLkcsvrdFGQOVNXPBA5535-64-76 23:48:00 Test Item Value Reference Range Interpretation Comments Macrocyte (test code = 1+ *ABN*(01/11/16 Macrocyte) 6:48 PM) [facility] PasoUvzqtytRVHZFQWCRV0130-09-88 23:48:00 Test Item Value Reference Range Interpretation Comments INR (test code = INR) 0.99 0.85-1.17 [place] [place] [id number] 23:48:00 Test Item Value Reference Range Interpretation Comments PTT (test code = PTT) 23.5 s 22.9-35.8 [place] 254356-07-26 23:48:00 Test Item Value Reference Range Interpretation Comments PT (test code = PT) 13.4 s 12.0-14.7 [facility]2016-07-26 23:48:00 Test Item Value Reference Range Interpretation Comments Magnesium Lvl (test code = Magnesium 1.8 1.8-2.4 Lvl) [facility]2016-07-26 23:48:00 Test Item Value Reference Range Interpretation Comments Phosphorus (test code = Phosphorus) 2.0 2.5-4.5 [id number] 23:48:00 Test Item Value Reference Range Interpretation Comments Basophils # (test code 0.0 See_Comment [Aut omated message] The = Basophils #) system which generated this result tra nsmitted reference range : <=0.2. The reference r leatha was not used to int erpret this result as normal/abnormal . [facility] PasoNhrlygmWZAVZVKHBG3864-41-17 23:48:00 Test Item Value Reference Range Interpretation Comments Macrocyte (test code = 1+ *ABN*(01/11/16 Macrocyte) 6:48 PM) [facility] Pa[id number] 23:48:00 Test Item Value Reference Range Interpretation Comments INR (test code = INR) 0.99 0.85-1.17 [facility] PasoAcdtxpqHKQGRWKRFI3926-38-30 23:48:00 Test Item Value Reference Range Interpretation Comments PTT (test code = PTT) 23.5 s 22.9-35.8 [facility] PasoPpsboluOLVNZNLJZJ2401-00-20 23:48:00 Test Item Value Reference Range Interpretation Comments PT (test code = PT) 13.4 s 12.0-14.7 [facility]2016-07-26 23:48:00 Test Item Value Reference Range Interpretation Comments Magnesium Lvl (test code = Magnesium 1.8 1.8-2.4 Lvl) [facility]2016-07-26 23:48:00 Test Item Value Reference Range Interpretation Comments Phosphorus (test code = Phosphorus) 2.0 2.5-4.5 [facility] PasoShkcrorXQJJTJLSQG6966-41-97 23:48:00 Test Item Value Reference Range Interpretation Comments Basophils # (test code 0.0 See_Comment [Aut omated message] The = Basophils #) system which generated this result tra nsmitted reference range : <=0.2. The reference r leatha was not used to int erpret this result as normal/abnormal . [facility] PasoCjtrprcVGQBWGGFFT4145-57-05 23:48:00 Test Item Value Reference Range Interpretation Comments Macrocyte (test code = 1+ *ABN*(01/11/16 Macrocyte) 6:48 PM) [facility] PasoLlddlkpRMPNIAFUDU6537-38-26 23:48:00 Test Item Value Reference Range Interpretation Comments INR (test code = INR) 0.99 0.85-1.17 [facility] PasoOqcrpwsGKKIDFCGNP6053-13-75 23:48:00 Test Item Value Reference Range Interpretation Comments PTT (test code = PTT) 23.5 s 22.9-35.8 [place] 254356-07-26 23:48:00 Test Item Value Reference Range Interpretation Comments PT (test code = PT) 13.4 s 12.0-14.7 [facility]2016-07-26 23:48:00 Test Item Value Reference Range Interpretation Comments Magnesium Lvl (test code = Magnesium 1.8 1.8-2.4 Lvl) [facility]2016-07-26 23:48:00 Test Item Value Reference Range Interpretation Comments Phosphorus (test code = Phosphorus) 2.0 2.5-4.5 [facility] PasoFyxncraIWLGBWIIVI5746-29-91 23:48:00 Test Item Value Reference Range Interpretation Comments Basophils # (test code 0.0 See_Comment [Aut omated message] The = Basophils #) system which generated this result tra nsmitted reference range : <=0.2. The reference r leatha was not used to int erpret this result as normal/abnormal . [facility] PasoYbywimhYKABQTQRHS4968-02-85 23:48:00 Test Item Value Reference Range Interpretation Comments Macrocyte (test code = 1+ *ABN*(01/11/16 Macrocyte) 6:48 PM) [facility] PasoTlvybooPRHVSAUOQC4779-57-33 23:48:00 Test Item Value Reference Range Interpretation Comments INR (test code = INR) 0.99 0.85-1.17 [facility] PasoAdcwqbaYNCUIFZYKP3980-73-19 23:48:00 Test Item Value Reference Range Interpretation Comments PTT (test code = PTT) 23.5 s 22.9-35.8 [facility] PasoQjyquijZHTTODGJQJ3514-26-90 23:48:00 Test Item Value Reference Range Interpretation Comments PT (test code = PT) 13.4 s 12.0-14.7 [facility]2016-07-26 23:48:00 Test Item Value Reference Range Interpretation Comments Magnesium Lvl (test code = Magnesium 1.8 1.8-2.4 Lvl) [facility]2016-07-26 23:48:00 Test Item Value Reference Range Interpretation Comments Phosphorus (test code = Phosphorus) 2.0 2.5-4.5 [facility] PasoWnvliyuXCXNGDLDUY0993-52-11 23:48:00 Test Item Value Reference Range Interpretation Comments Basophils # (test code = Basophils #) 0.0 <=0.2 [facility] PasoJtaytvdPQIEKMSEFC3412-49-21 23:48:00 Test Item Value Reference Range Interpretation Comments Macrocyte (test code = 1+ *ABN*(01/11/16 Macrocyte) 6:48 PM) [facility] PasoRmchsthUAKPTTCAFU1993-70-54 23:48:00 Test Item Value Reference Range Interpretation Comments INR (test code = INR) 0.99 0.85-1.17 [facility] PasoUtyuureJBVSFNXPPM7778-40-05 23:48:00 Test Item Value Reference Range Interpretation Comments PTT (test code = PTT) 23.5 s 22.9-35.8 [facility] PasoFfeciilGLSWFAFPOD4963-52-22 23:48:00 Test Item Value Reference Range Interpretation Comments PT (test code = PT) 13.4 s 12.0-14.7 [facility]2016-07-26 23:48:00 Test Item Value Reference Range Interpretation Comments Magnesium Lvl (test code = Magnesium 1.8 1.8-2.4 Lvl) [facility]2016-07-26 23:48:00 Test Item Value Reference Range Interpretation Comments Phosphorus (test code = Phosphorus) 2.0 2.5-4.5 [facility] PasoSqpxubpUBTBHNMXWS1191-60-33 23:48:00 Test Item Value Reference Range Interpretation Comments Basophils # (test code = Basophils #) 0.0 <=0.2 [facility] PasoWkhpzwbVFNWSSOVRS1748-82-73 23:48:00 Test Item Value Reference Range Interpretation Comments Macrocyte (test code = 1+ *ABN*(01/11/16 Macrocyte) 6:48 PM) [facility] PasoLcfcumdFJQEIVBROH0494-18-69 23:48:00 Test Item Value Reference Range Interpretation Comments INR (test code = INR) 0.99 0.85-1.17 [facility] PasoNqmbovgNZHMACLHGB5239-28-48 23:48:00 Test Item Value Reference Range Interpretation Comments PTT (test code = PTT) 23.5 s 22.9-35.8 [facility] PasoWdbkjcrBORMTNMSIA9526-74-49 23:48:00 Test Item Value Reference Range Interpretation Comments PT (test code = PT) 13.4 s 12.0-14.7 [facility]2016-07-26 23:48:00 Test Item Value Reference Range Interpretation Comments Magnesium Lvl (test code = Magnesium 1.8 1.8-2.4 Lvl) [facility]2016-07-26 23:48:00 Test Item Value Reference Range Interpretation Comments Phosphorus (test code = Phosphorus) 2.0 2.5-4.5 [facility] PasoPwilazaLLSAKVJIHK3969-00-30 23:48:00 Test Item Value Reference Range Interpretation Comments Basophils # (test code = Basophils #) 0.0 <=0.2 [facility] PasoTppflvjIUAEZMGLIO9473-21-84 23:48:00 Test Item Value Reference Range Interpretation Comments Macrocyte (test code = 1+ *ABN*(01/11/16 Macrocyte) 6:48 PM) [facility] PasoZczmlrlQWDWORFFHB2064-02-66 23:48:00 Test Item Value Reference Range Interpretation Comments INR (test code = INR) 0.99 0.85-1.17 [facility] PasoSbgbowmQFDSFWXCHR8956-19-60 23:48:00 Test Item Value Reference Range Interpretation Comments PTT (test code = PTT) 23.5 s 22.9-35.8 [facility] PasoMacgfmgZJGHVPAXHO5900-54-20 23:48:00 Test Item Value Reference Range Interpretation Comments PT (test code = PT) 13.4 s 12.0-14.7 [facility]2016-07-26 23:48:00 Test Item Value Reference Range Interpretation Comments Magnesium Lvl (test code = Magnesium 1.8 1.8-2.4 Lvl) [facility]2016-07-26 23:48:00 Test Item Value Reference Range Interpretation Comments Phosphorus (test code = Phosphorus) 2.0 2.5-4.5 [facility] PasoTvtgdpnBHIRQMNAIW1624-34-84 23:48:00 Test Item Value Reference Range Interpretation Comments Basophils # (test code = Basophils #) 0.0 <=0.2 [facility] PasoDheclhsOSYRGQKXEW4684-44-91 23:48:00 Test Item Value Reference Range Interpretation Comments Macrocyte (test code = 1+ *ABN*(01/11/16 Macrocyte) 6:48 PM) [facility] PasoWfwfdqqHCWCJXCXLK7169-01-37 23:48:00 Test Item Value Reference Range Interpretation Comments INR (test code = INR) 0.99 0.85-1.17 [facility] PasoRranqlfJCQHHXAZKK3977-41-59 23:48:00 Test Item Value Reference Range Interpretation Comments PTT (test code = PTT) 23.5 s 22.9-35.8 [facility] PasoSplvbfoIQTSLNGPTS4082-65-88 23:48:00 Test Item Value Reference Range Interpretation Comments PT (test code = PT) 13.4 s 12.0-14.7 [facility]2016-07-26 23:48:00 Test Item Value Reference Range Interpretation Comments Magnesium Lvl (test code = Magnesium 1.8 1.8-2.4 Lvl) [facility]2016-07-26 23:48:00 Test Item Value Reference Range Interpretation Comments Phosphorus (test code = Phosphorus) 2.0 2.5-4.5 [facility] PasoXuqefwrVOQXLVRVEX5092-64-96 23:48:00 Test Item Value Reference Range Interpretation Comments Basophils # (test code = Basophils #) 0.0 <=0.2 [facility] PasoOhylgenRTOVWZSQMG7690-59-04 23:48:00 Test Item Value Reference Range Interpretation Comments Macrocyte (test code = 1+ *ABN*(01/11/16 Macrocyte) 6:48 PM) [facility] PasoXdelliiJDTMMKMKLZ9447-03-81 23:48:00 Test Item Value Reference Range Interpretation Comments INR (test code = INR) 0.99 0.85-1.17 [facility] PasoAstanhfCNZCTEDBSL5588-68-35 23:48:00 Test Item Value Reference Range Interpretation Comments PTT (test code = PTT) 23.5 s 22.9-35.8 [facility] PasoNtawzmqSBPDMRJWFX8563-41-89 23:48:00 Test Item Value Reference Range Interpretation Comments PT (test code = PT) 13.4 s 12.0-14.7 [facility]2016-07-26 23:48:00 Test Item Value Reference Range Interpretation Comments Magnesium Lvl (test code = Magnesium 1.8 1.8-2.4 Lvl) [facility]2016-07-26 23:48:00 Test Item Value Reference Range Interpretation Comments Phosphorus (test code = Phosphorus) 2.0 2.5-4.5 [facility] PasoCgqhzjoNZRPRBDCPS3622-12-26 23:48:00 Test Item Value Reference Range Interpretation Comments Basophils # (test code = Basophils #) 0.0 <=0.2 [facility] PasoIcpczgzZOZJKKKXOD6500-88-37 23:48:00 Test Item Value Reference Range Interpretation Comments Macrocyte (test code = 1+ *ABN*(01/11/16 Macrocyte) 6:48 PM) [facility] PasoWjjufzoHXJGYNHTDR1653-42-31 23:48:00 Test Item Value Reference Range Interpretation Comments INR (test code = INR) 0.99 0.85-1.17 [facility] PasoMvsuraxLNVMUGCXYO8799-87-91 23:48:00 Test Item Value Reference Range Interpretation Comments PTT (test code = PTT) 23.5 s 22.9-35.8 [facility] PasoNbabdgqDJLTKPMKJI4790-39-74 23:48:00 Test Item Value Reference Range Interpretation Comments PT (test code = PT) 13.4 s 12.0-14.7 [facility]2016-07-26 23:48:00 Test Item Value Reference Range Interpretation Comments Magnesium Lvl (test code = Magnesium 1.8 1.8-2.4 Lvl) [facility]2016-07-26 23:48:00 Test Item Value Reference Range Interpretation Comments Phosphorus (test code = Phosphorus) 2.0 2.5-4.5 [facility] PasoNafxzgwCVZGJQRFNG6157-97-74 23:48:00 Test Item Value Reference Range Interpretation Comments Basophils # (test code = Basophils #) 0.0 <=0.2 [facility] PasoFuenlpgOKSCTRKBJK1608-42-67 23:48:00 Test Item Value Reference Range Interpretation Comments Macrocyte (test code = 1+ *ABN*(01/11/16 Macrocyte) 6:48 PM) [facility] PasoDytahbtPPQWTKWNYW4442-21-36 23:48:00 Test Item Value Reference Range Interpretation Comments INR (test code = INR) 0.99 0.85-1.17 [facility] PasoWobjmyuWFRWZCWFCG9802-17-32 23:48:00 Test Item Value Reference Range Interpretation Comments PTT (test code = PTT) 23.5 s 22.9-35.8 [facility] PasoFvbnpxlMDGXUSCWLR6241-18-59 23:48:00 Test Item Value Reference Range Interpretation Comments PT (test code = PT) 13.4 s 12.0-14.7 [facility]2016-07-26 23:48:00 Test Item Value Reference Range Interpretation Comments Magnesium Lvl (test code = Magnesium 1.8 1.8-2.4 Lvl) [facility]2016-07-26 23:48:00 Test Item Value Reference Range Interpretation Comments Phosphorus (test code = Phosphorus) 2.0 2.5-4.5 [facility] PasoMxkddjuLNZYUFCLFT8237-95-67 23:48:00 Test Item Value Reference Range Interpretation Comments Basophils # (test code = Basophils #) 0.0 <=0.2 [facility] PasoJzpjdfcIWDUYQPERA7927-00-71 23:48:00 Test Item Value Reference Range Interpretation Comments Macrocyte (test code = 1+ *ABN*(01/11/16 Macrocyte) 6:48 PM) [facility] PasoZcuzagcOLPDVYVLYS6831-07-97 23:48:00 Test Item Value Reference Range Interpretation Comments INR (test code = INR) 0.99 0.85-1.17 [facility] PasoWofjlquSNMOCZCXHO6855-90-54 23:48:00 Test Item Value Reference Range Interpretation Comments PTT (test code = PTT) 23.5 s 22.9-35.8 [facility] PasoXtzophkEBGTBLZWEZ2175-42-22 23:48:00 Test Item Value Reference Range Interpretation Comments PT (test code = PT) 13.4 s 12.0-14.7 [facility]2016-07-26 23:48:00 Test Item Value Reference Range Interpretation Comments Magnesium Lvl (test code = Magnesium 1.8 1.8-2.4 Lvl) [facility]2016-07-26 23:48:00 Test Item Value Reference Range Interpretation Comments Phosphorus (test code = Phosphorus) 2.0 2.5-4.5 [facility] PasoOtlchnzTXMIGKCSWF7486-62-91 23:48:00 Test Item Value Reference Range Interpretation Comments Basophils # (test code = Basophils #) 0.0 <=0.2 [facility] PasoY[id number] 23:48:00 Test Item Value Reference Range Interpretation Comments Macrocyte (test code = 1+ *ABN*(01/11/16 Macrocyte) 6:48 PM) [facility] PasoKxqprpyEPYZLKWJBB4491-74-10 23:48:00 Test Item Value Reference Range Interpretation Comments INR (test code = INR) 0.99 0.85-1.17 [facility] PasoHndszviZAJSZXDXKP6460-00-10 23:48:00 Test Item Value Reference Range Interpretation Comments PTT (test code = PTT) 23.5 s 22.9-35.8 [facility] PasoCpruiayORBPXSTADQ9590-23-14 23:48:00 Test Item Value Reference Range Interpretation Comments PT (test code = PT) 13.4 s 12.0-14.7 [facility]2016-07-26 23:48:00 Test Item Value Reference Range Interpretation Comments Magnesium Lvl (test code = Magnesium 1.8 1.8-2.4 Lvl) [facility]2016-07-26 23:48:00 Test Item Value Reference Range Interpretation Comments Phosphorus (test code = Phosphorus) 2.0 2.5-4.5 [facility] PasoKxumxkdGCFSXLJNWT6428-32-08 23:48:00 Test Item Value Reference Range Interpretation Comments Basophils # (test code = Basophils #) 0.0 <=0.2 [facility] PasoTrxwrkcYTMWGSPBNC9264-42-20 23:48:00 Test Item Value Reference Range Interpretation Comments Macrocyte (test code = 1+ *ABN*(01/11/16 Macrocyte) 6:48 PM) [facility] PasoGeneiamSIUPRPKRUM6953-98-48 23:48:00 Test Item Value Reference Range Interpretation Comments INR (test code = INR) 0.99 0.85-1.17 [facility] PasoTclqdguAFHFJMUIPA9819-73-79 23:48:00 Test Item Value Reference Range Interpretation Comments PTT (test code = PTT) 23.5 s 22.9-35.8 [facility] PasoYvqelkuBEPBMDWWUN8094-54-06 23:48:00 Test Item Value Reference Range Interpretation Comments PT (test code = PT) 13.4 s 12.0-14.7 [facility]2016-07-26 23:48:00 Test Item Value Reference Range Interpretation Comments Magnesium Lvl (test code = Magnesium 1.8 1.8-2.4 Lvl) [facility]2016-07-26 23:48:00 Test Item Value Reference Range Interpretation Comments Phosphorus (test code = Phosphorus) 2.0 2.5-4.5 [facility] PasoWajlmkwFWBQEUNTRU7365-66-45 23:48:00 Test Item Value Reference Range Interpretation Comments Basophils # (test code 0.0 See_Comment [Aut omated message] The = Basophils #) system which generated this result tra nsmitted reference range : <=0.2. The reference r leatha was not used to int erpret this result as normal/abnormal . [facility] PasoCtsubzuMOQLNOKLOE9554-45-69 23:48:00 Test Item Value Reference Range Interpretation Comments Macrocyte (test code = 1+ *ABN*(01/11/16 Macrocyte) 6:48 PM) [facility] PasoRwlftetTOJQRVNTNJ8588-28-11 23:48:00 Test Item Value Reference Range Interpretation Comments INR (test code = INR) 0.99 0.85-1.17 [facility] PasoTflmksbUQZTZWYWXB2193-40-27 23:48:00 Test Item Value Reference Range Interpretation Comments PTT (test code = PTT) 23.5 s 22.9-35.8 [facility] PasoBjnxmfeHHVOYLHETQ8745-94-01 23:48:00 Test Item Value Reference Range Interpretation Comments PT (test code = PT) 13.4 s 12.0-14.7 [facility] [id number] 23:48:00 Test Item Value Reference Range Interpretation Comments Magnesium Lvl (test code = Magnesium 1.8 1.8-2.4 Lvl) [facility] [id number] 23:48:00 Test Item Value Reference Range Interpretation Comments Phosphorus (test code = Phosphorus) 2.0 2.5-4.5 [facility] PasoDovxqunBFQDLXTMRF2432-08-60 23:48:00 Test Item Value Reference Range Interpretation Comments Basophils # (test code = Basophils #) 0.0 <=0.2 [facility] PasoEgoictwAKYNEJCZAA6524-35-56 23:48:00 Test Item Value Reference Range Interpretation Comments Macrocyte (test code = 1+ *ABN*(01/11/16 Macrocyte) 6:48 PM) [facility] PasoUqpirwtQXCUTEMZRE6377-61-60 23:48:00 Test Item Value Reference Range Interpretation Comments INR (test code = INR) 0.99 0.85-1.17 [facility] PasoJugkbbcSLGIYJLHUS9672-25-22 23:48:00 Test Item Value Reference Range Interpretation Comments PTT (test code = PTT) 23.5 s 22.9-35.8 [facility] PasoRzfeuyrUQKKGNMXQT5340-99-43 23:48:00 Test Item Value Reference Range Interpretation Comments PT (test code = PT) 13.4 s 12.0-14.7 [facility] GLUCOSE [id number] 12:49:00 Test Item Value Reference Range Interpretation Comments Comment1 (test code = Comment1) Notify RN/ [facility] GLUCOSE [id number] 12:49:00 Test Item Value Reference Range Interpretation Comments Gluc POC Lifscn (test code = Gluc POC 308 70-99 H Lifscn) [facility] GLUCOSE [id number] 12:49:00 Test Item Value Reference Range Interpretation Comments Comment1 (test code = Comment1) Notify RN/ [facility] GLUCOSE [id number] 12:49:00 Test Item Value Reference Range Interpretation Comments Gluc POC Lifscn (test code = Gluc POC 308 70-99 H Lifscn) [facility] GLUCOSE [id number] 12:49:00 Test Item Value Reference Range Interpretation Comments Comment1 (test code = Comment1) Notify RN/ [facility] GLUCOSE [id number] 12:49:00 Test Item Value Reference Range Interpretation Comments Gluc POC Lifscn (test code = Gluc POC 308 70-99 H Lifscn) [facility] GLUCOSE [id number] 12:49:00 Test Item Value Reference Range Interpretation Comments Comment1 (test code = Comment1) Notify RN/ [facility] GLUCOSE [id number] 12:49:00 Test Item Value Reference Range Interpretation Comments Gluc POC Lifscn (test code = Gluc POC 308 70-99 H Lifscn) [facility] GLUCOSE [id number] 12:49:00 Test Item Value Reference Range Interpretation Comments Comment1 (test code = Comment1) Notify RN/ [facility] GLUCOSE [id number] 12:49:00 Test Item Value Reference Range Interpretation Comments Gluc POC Lifscn (test code = Gluc POC 308 70-99 H Lifscn) [facility] GLUCOSE [id number] 12:49:00 Test Item Value Reference Range Interpretation Comments Comment1 (test code = Comment1) Notify RN/ [facility] GLUCOSE [id number] 12:49:00 Test Item Value Reference Range Interpretation Comments Gluc POC Lifscn (test code = Gluc POC 308 70-99 H Lifscn) [facility] GLUCOSE [id number] 12:49:00 Test Item Value Reference Range Interpretation Comments Comment1 (test code = Comment1) Notify RN/ [facility] GLUCOSE [id number] 12:49:00 Test Item Value Reference Range Interpretation Comments Gluc POC Lifscn (test code = Gluc POC 308 70-99 H Lifscn) [facility] GLUCOSE [id number] 12:49:00 Test Item Value Reference Range Interpretation Comments Comment1 (test code = Comment1) Notify RN/ [facility] GLUCOSE [id number] 12:49:00 Test Item Value Reference Range Interpretation Comments Gluc POC Lifscn (test code = Gluc POC 308 70-99 H Lifscn) [facility] GLUCOSE [id number] 12:49:00 Test Item Value Reference Range Interpretation Comments Comment1 (test code = Comment1) Notify RN/ [facility] GLUCOSE [id number] 12:49:00 Test Item Value Reference Range Interpretation Comments Gluc POC Lifscn (test code = Gluc POC 308 70-99 H Lifscn) [facility] GLUCOSE [id number] 12:49:00 Test Item Value Reference Range Interpretation Comments Comment1 (test code = Comment1) Notify RN/MD [facility] GLUCOSE [id number] 12:49:00 Test Item Value Reference Range Interpretation Comments Gluc POC Lifscn (test code = Gluc POC 308 70-99 H Lifscn) [facility] GLUCOSE [id number] 12:49:00 Test Item Value Reference Range Interpretation Comments Comment1 (test code = Comment1) Notify RN/ [facility] GLUCOSE [id number] 12:49:00 Test Item Value Reference Range Interpretation Comments Gluc POC Lifscn (test code = Gluc POC 308 70-99 H Lifscn) [facility] GLUCOSE [id number] 12:49:00 Test Item Value Reference Range Interpretation Comments Comment1 (test code = Comment1) Notify RN/ [facility] GLUCOSE [id number] 12:49:00 Test Item Value Reference Range Interpretation Comments Gluc POC Lifscn (test code = Gluc POC 308 70-99 H Lifscn) [facility] GLUCOSE [id number] 12:49:00 Test Item Value Reference Range Interpretation Comments Comment1 (test code = Comment1) Notify RN/ [facility] GLUCOSE [id number] 12:49:00 Test Item Value Reference Range Interpretation Comments Gluc POC Lifscn (test code = Gluc POC 308 70-99 H Lifscn) [facility] GLUCOSE [id number] 12:49:00 Test Item Value Reference Range Interpretation Comments Comment1 (test code = Comment1) Notify RN/ [facility] GLUCOSE [id number] 12:49:00 Test Item Value Reference Range Interpretation Comments Gluc POC Lifscn (test code = Gluc POC 308 70-99 H Lifscn) [facility] GLUCOSE [id number] 12:49:00 Test Item Value Reference Range Interpretation Comments Comment1 (test code = Comment1) Notify RN/ [facility] GLUCOSE [id number] 12:49:00 Test Item Value Reference Range Interpretation Comments Gluc POC Lif[facility]n (test code = Gluc POC 308 70-99 H Lifscn) [facility] GLUCOSE [id number] 12:49:00 Test Item Value Reference Range Interpretation Comments Comment1 (test code = Comment1) Notify RN/MD [facility] GLUCOSE [id number] 12:49:00 Test Item Value Reference Range Interpretation Comments Gluc POC Lif[facility] (test code = Gluc POC 308 70-99 H [facility]) [facility] GLUCOSE [id number] 12:49:00 Test Item Value Reference Range Interpretation Comments Comment1 (test code = Comment1) Notify RN/ [facility] GLUCOSE [id number] 12:49:00 Test Item Value Reference Range Interpretation Comments Gluc POC [facility] (test code = Gluc POC 308 70-99 H Lif[facility]) [facility] GLUCOSE [id number] 12:49:00 Test Item Value Reference Range Interpretation Comments Comment1 (test code = Comment1) Notify RN/ [facility] GLUCOSE [id number] 12:49:00 Test Item Value Reference Range Interpretation Comments Gluc POC [facility] (test code = Gluc POC 308 70-99 H [facility]) [facility] GLUCOSE [id number] 12:49:00 Test Item Value Reference Range Interpretation Comments Comment1 (test code = Comment1) Notify RN/ [facility] GLUCOSE [id number] 12:49:00 Test Item Value Reference Range Interpretation Comments Gluc POC [facility] (test code = Gluc POC 308 70-99 H [facility]) [facility] GLUCOSE [id number] 08:39:00 Test Item Value Reference Range Interpretation Comments Comment1 (test code = Comment1) Notify RN/ [facility] GLUCOSE [id number] 08:39:00 Test Item Value Reference Range Interpretation Comments Gluc POC [facility] (test code = Gluc POC 159 70-99 H [facility]) [facility] GLUCOSE [id number] 08:39:00 Test Item Value Reference Range Interpretation Comments Comment1 (test code = Comment1) Notify RN/ [facility] GLUCOSE [id number] 08:39:00 Test Item Value Reference Range Interpretation Comments Gluc POC [facility] (test code = Gluc POC 159 70-99 H [facility]) [facility] GLUCOSE [id number] 08:39:00 Test Item Value Reference Range Interpretation Comments Comment1 (test code = Comment1) Notify RN/ [facility] GLUCOSE [id number] 08:39:00 Test Item Value Reference Range Interpretation Comments Gluc POC [facility] (test code = Gluc POC 159 70-99 H [facility]) [facility] GLUCOSE [id number] 08:39:00 Test Item Value Reference Range Interpretation Comments Comment1 (test code = Comment1) Notify RN/ [facility] GLUCOSE [id number] 08:39:00 Test Item Value Reference Range Interpretation Comments Gluc POC [facility] (test code = Gluc POC 159 70-99 H [facility]) [facility] GLUCOSE [id number] 08:39:00 Test Item Value Reference Range Interpretation Comments Comment1 (test code = Comment1) Notify RN/ [facility] GLUCOSE [id number] 08:39:00 Test Item Value Reference Range Interpretation Comments Gluc POC [facility] (test code = Gluc POC 159 70-99 H [facility]) [facility] GLUCOSE [id number] 08:39:00 Test Item Value Reference Range Interpretation Comments Comment1 (test code = Comment1) Notify RN/ [facility] GLUCOSE [id number] 08:39:00 Test Item Value Reference Range Interpretation Comments Gluc POC [facility] (test code = Gluc POC 159 70-99 H [facility]) [facility] GLUCOSE [id number] 08:39:00 Test Item Value Reference Range Interpretation Comments Comment1 (test code = Comment1) Notify RN/ [facility] GLUCOSE [id number] 08:39:00 Test Item Value Reference Range Interpretation Comments Gluc POC [facility] (test code = Gluc POC 159 70-99 H [facility]) [facility] GLUCOSE [id number] 08:39:00 Test Item Value Reference Range Interpretation Comments Comment1 (test code = Comment1) Notify RN/ [facility] GLUCOSE [id number] 08:39:00 Test Item Value Reference Range Interpretation Comments Gluc POC [facility] (test code = Gluc POC 159 70-99 H [facility]) [facility] GLUCOSE [id number] 08:39:00 Test Item Value Reference Range Interpretation Comments Comment1 (test code = Comment1) Notify RN/ [facility] GLUCOSE [id number] 08:39:00 Test Item Value Reference Range Interpretation Comments Gluc POC [facility] (test code = Gluc POC 159 70-99 H [facility]) [facility] GLUCOSE [id number] 08:39:00 Test Item Value Reference Range Interpretation Comments Comment1 (test code = Comment1) Notify RN/ [facility] GLUCOSE [id number] 08:39:00 Test Item Value Reference Range Interpretation Comments Gluc POC [facility] (test code = Gluc POC 159 70-99 H [facility]) [facility] GLUCOSE [id number] 08:39:00 Test Item Value Reference Range Interpretation Comments Comment1 (test code = Comment1) Notify RN/ [facility] GLUCOSE [id number] 08:39:00 Test Item Value Reference Range Interpretation Comments Gluc POC [facility] (test code = Gluc POC 159 70-99 H [facility]) [facility] GLUCOSE [id number] 08:39:00 Test Item Value Reference Range Interpretation Comments Comment1 (test code = Comment1) Notify RN/ [facility] GLUCOSE [id number] 08:39:00 Test Item Value Reference Range Interpretation Comments Gluc POC [facility] (test code = Gluc POC 159 70-99 H [facility]) [facility] GLUCOSE [id number] 08:39:00 Test Item Value Reference Range Interpretation Comments Comment1 (test code = Comment1) Notify RN/ [facility] GLUCOSE [id number] 08:39:00 Test Item Value Reference Range Interpretation Comments Gluc POC [facility] (test code = Gluc POC 159 70-99 H [facility]) [facility] GLUCOSE [id number] 08:39:00 Test Item Value Reference Range Interpretation Comments Comment1 (test code = Comment1) Notify RN/ [facility] GLUCOSE [id number] 08:39:00 Test Item Value Reference Range Interpretation Comments Gluc POC [facility] (test code = Gluc POC 159 70-99 H [facility]) [facility] GLUCOSE [id number] 08:39:00 Test Item Value Reference Range Interpretation Comments Comment1 (test code = Comment1) Notify RN/ [facility] GLUCOSE [id number] 08:39:00 Test Item Value Reference Range Interpretation Comments Gluc POC [facility] (test code = Gluc POC 159 70-99 H [facility]) [facility] GLUCOSE [id number] 08:39:00 Test Item Value Reference Range Interpretation Comments Comment1 (test code = Comment1) Notify RN/ [facility] GLUCOSE [id number] 08:39:00 Test Item Value Reference Range Interpretation Comments Gluc POC [facility] (test code = Gluc POC 159 70-99 H [facility]) [facility] GLUCOSE [id number] 08:39:00 Test Item Value Reference Range Interpretation Comments Comment1 (test code = Comment1) Notify RN/ [facility] GLUCOSE [id number] 08:39:00 Test Item Value Reference Range Interpretation Comments Gluc POC [facility] (test code = Gluc POC 159 70-99 H [facility]) [facility] GLUCOSE [id number] 08:39:00 Test Item Value Reference Range Interpretation Comments Comment1 (test code = Comment1) Notify RN/ [facility] GLUCOSE [id number] 08:39:00 Test Item Value Reference Range Interpretation Comments Gluc POC [facility] (test code = Gluc POC 159 70-99 H [facility]) [facility] GLUCOSE [id number] 08:39:00 Test Item Value Reference Range Interpretation Comments Comment1 (test code = Comment1) Notify RN/ [facility] GLUCOSE [id number] 08:39:00 Test Item Value Reference Range Interpretation Comments Gluc POC [facility] (test code = Gluc POC 159 70-99 H [facility]) [id number] 07:19:00 Test Item Value Reference Range Interpretation Comments AGAP (test code = AGAP) 14.3 10.0-20.0 N [facility] HospitalItvyqtbZIRVDDTNS8890-41-67 07:19:00 Test Item Value Reference Range Interpretation Comments eGFR (test code = eGFR) 75 [facility] HospitalXmcpwbpQVQEHOZFP3364-81-73 07:19:00 Test Item Value Reference Range Interpretation Comments Sodium Lvl (test code = Sodium Lvl) 139 135-145 N [facility] HospitalEhdpekqRIUXLILRZ9509-65-01 07:19:00 Test Item Value Reference Range Interpretation Comments Chloride Lvl (test code = Chloride Lvl) 104 95-109 N [facility] HospitalDdxqwfwKSPRSTJXS2132-21-67 07:19:00 Test Item Value Reference Range Interpretation Comments CO2 (test code = CO2) 25 24-32 N [facility] HospitalRxmwsfmDIACVPXSD3383-81-78 07:19:00 Test Item Value Reference Range Interpretation Comments Calcium Lvl (test code = Calcium Lvl) 10.7 8.5-10.5 H [facility] HospitalGjwtmriOTVFJPETS0000-82-86 07:19:00 Test Item Value Reference Range Interpretation Comments Potassium Lvl (test code = Potassium 4.3 3.5-5.1 N Lvl) [facility] HospitalYvpuzjkWRBJCQAMR7205-67-43 07:19:00 Test Item Value Reference Range Interpretation Comments Glucose Lvl (test code = Glucose Lvl) 262 70-99 H [facility] HospitalCrxbqpuYTORMJLRI0302-79-54 07:19:00 Test Item Value Reference Range Interpretation Comments Creatinine Lvl (test code = Creatinine 0.8 0.5-1.4 N Lvl) [facility] HospitalXrxpqisQFMAWTAAW2905-75-19 07:19:00 Test Item Value Reference Range Interpretation Comments BUN (test code = BUN) 20 7-22 N [facility]KbdlwalFIJWZKNQOK3399-64-05 07:19:00 Test Item Value Reference Range Interpretation Comments Hgb (test code = Hgb) 14.0 12.0-16.0 N [facility]KknwqtuYYYSFZBQNG4769-55-68 07:19:00 Test Item Value Reference Range Interpretation Comments Hct (test code = Hct) 42.5 36.0-48.0 N [facility]HdlqmbgFSZLOIZWZW9702-63-51 07:19:00 Test Item Value Reference Range Interpretation Comments MCV (test code = MCV) 92.3 81.0-99.0 N [facility]VgbboaiEFMPPOLDKZ8862-10-25 07:19:00 Test Item Value Reference Range Interpretation Comments MCH (test code = MCH) 30.5 pg 27.0-31.0 N [facility] [place]OeujfboFPUWCHMDIO1755-18-17 07:19:00 Test Item Value Reference Range Interpretation Comments MCHC (test code = MCHC) 33.0 32.0-36.0 N [facility]KhciguuYAIYBQPDFU8760-43-67 07:19:00 Test Item Value Reference Range Interpretation Comments RDW (test code = RDW) 14.6 11.5-14.5 H [facility]JebtdzgOMYCQZQFUK0486-10-86 07:19:00 Test Item Value Reference Range Interpretation Comments Platelet (test code = Platelet) 215 133-450 N [facility] PasoGgzlvdvLLBLXVWAFU2030-13-33 07:19:00 Test Item Value Reference Range Interpretation Comments MPV (test code = MPV) 10.0 7.4-10.4 N [facility]TvpjrtfIQXKWDAOKL7427-36-02 07:19:00 Test Item Value Reference Range Interpretation Comments RBC (test code = RBC) 4.60 4.20-5.40 N [facility]VjlrrmfBFMZYBIUZO2792-64-69 07:19:00 Test Item Value Reference Range Interpretation Comments WBC (test code = WBC) 13.0 3.7-10.4 H [facility] HospitalGpeupruXHOMTGPDP0325-29-21 07:19:00 Test Item Value Reference Range Interpretation Comments AGAP (test code = AGAP) 14.3 10.0-20.0 N [facility] HospitalYybowrlJLCYGCSDP6870-97-34 07:19:00 Test Item Value Reference Range Interpretation Comments eGFR (test code = eGFR) 75 [facility] HospitalGqnrhluDZQDJDNCI0057-67-80 07:19:00 Test Item Value Reference Range Interpretation Comments Sodium Lvl (test code = Sodium Lvl) 139 135-145 N [facility] HospitalAlluwqwBLSIFTBRR2080-66-48 07:19:00 Test Item Value Reference Range Interpretation Comments Chloride Lvl (test code = Chloride Lvl) 104 95-109 N [facility] HospitalBjqavdvYKHOYJBWM7788-24-76 07:19:00 Test Item Value Reference Range Interpretation Comments CO2 (test code = CO2) 25 24-32 N [facility] HospitalHiyhzxhTCZETUPWW9479-46-09 07:19:00 Test Item Value Reference Range Interpretation Comments Calcium Lvl (test code = Calcium Lvl) 10.7 8.5-10.5 H [facility] HospitalCbxhfcvTKMSFAWFQ8915-23-28 07:19:00 Test Item Value Reference Range Interpretation Comments Potassium Lvl (test code = Potassium 4.3 3.5-5.1 N Lvl) [facility] HospitalBqtayvyZKPZMOFCM8696-94-90 07:19:00 Test Item Value Reference Range Interpretation Comments Glucose Lvl (test code = Glucose Lvl) 262 70-99 H [facility] HospitalGnotsviQGWKNOONI4320-62-40 07:19:00 Test Item Value Reference Range Interpretation Comments Creatinine Lvl (test code = Creatinine 0.8 0.5-1.4 N Lvl) [facility] HospitalPmrpwfaBRUZGJYTX7418-04-59 07:19:00 Test Item Value Reference Range Interpretation Comments BUN (test code = BUN) 20 7-22 N [facility]JnsrwytYOULAMXDWI4658-32-96 07:19:00 Test Item Value Reference Range Interpretation Comments Hgb (test code = Hgb) 14.0 12.0-16.0 N [facility]PniwqzoPLNQGVLHDB9874-85-73 07:19:00 Test Item Value Reference Range Interpretation Comments Hct (test code = Hct) 42.5 36.0-48.0 N [facility]QjjinqzXQPADCGNGU1066-71-13 07:19:00 Test Item Value Reference Range Interpretation Comments MCV (test code = MCV) 92.3 81.0-99.0 N [facility]PzqhutyRIRQEIXKIB1974-79-01 07:19:00 Test Item Value Reference Range Interpretation Comments MCH (test code = MCH) 30.5 pg 27.0-31.0 N [facility] [place]CxskpyxWPQTQZAIBW4802-52-42 07:19:00 Test Item Value Reference Range Interpretation Comments MCHC (test code = MCHC) 33.0 32.0-36.0 N [facility] PasoMlmfcmdGAKSIDQUDR1843-42-92 07:19:00 Test Item Value Reference Range Interpretation Comments RDW (test code = RDW) 14.6 11.5-14.5 H [facility] PasoCnhrgmgWXVJSKTXRB6957-19-39 07:19:00 Test Item Value Reference Range Interpretation Comments Platelet (test code = Platelet) 215 133-450 N [facility] PasoHfdatqdUDJRISWVTK3840-91-26 07:19:00 Test Item Value Reference Range Interpretation Comments MPV (test code = MPV) 10.0 7.4-10.4 N [facility] PasoMmknetrMGVACACLYM4339-08-85 07:19:00 Test Item Value Reference Range Interpretation Comments RBC (test code = RBC) 4.60 4.20-5.40 N [facility] PasoUwvxdgnTASQWAQOKE0789-11-07 07:19:00 Test Item Value Reference Range Interpretation Comments WBC (test code = WBC) 13.0 3.7-10.4 H [facility] HospitalDbnxnnsYVCOVFMZK1739-22-03 07:19:00 Test Item Value Reference Range Interpretation Comments AGAP (test code = AGAP) 14.3 10.0-20.0 N [facility] HospitalKlqgpznSUSUBUMEP9277-41-05 07:19:00 Test Item Value Reference Range Interpretation Comments eGFR (test code = eGFR) 75 [facility] HospitalWjkbfupRLHSCQQGO4255-76-61 07:19:00 Test Item Value Reference Range Interpretation Comments Sodium Lvl (test code = Sodium Lvl) 139 135-145 N [facility] HospitalKqxvcjnDCERPNIVI9736-08-97 07:19:00 Test Item Value Reference Range Interpretation Comments Chloride Lvl (test code = Chloride Lvl) 104 95-109 N [facility] HospitalRqjprpgXKEAAWSMV3401-55-34 07:19:00 Test Item Value Reference Range Interpretation Comments CO2 (test code = CO2) 25 24-32 N [facility] HospitalCizumrmVJNUICLSU5603-23-82 07:19:00 Test Item Value Reference Range Interpretation Comments Calcium Lvl (test code = Calcium Lvl) 10.7 8.5-10.5 H [facility] HospitalNivcnonPGRDOAHDE5375-06-44 07:19:00 Test Item Value Reference Range Interpretation Comments Potassium Lvl (test code = Potassium 4.3 3.5-5.1 N Lvl) [facility] HospitalArmilbzREAZUMEXG9704-57-55 07:19:00 Test Item Value Reference Range Interpretation Comments Glucose Lvl (test code = Glucose Lvl) 262 70-99 H [facility] HospitalTgpanxaINJNUVZHP4777-87-41 07:19:00 Test Item Value Reference Range Interpretation Comments Creatinine Lvl (test code = Creatinine 0.8 0.5-1.4 N Lvl) [facility] HospitalAnlfgwpBWOVGOZYV1535-27-14 07:19:00 Test Item Value Reference Range Interpretation Comments BUN (test code = BUN) 20 7-22 N [facility]XndxsdaMLCOZBYSBZ6568-73-57 07:19:00 Test Item Value Reference Range Interpretation Comments Hgb (test code = Hgb) 14.0 12.0-16.0 N [facility] PasoJoadgjwBNHNOMJUXS7044-94-91 07:19:00 Test Item Value Reference Range Interpretation Comments Hct (test code = Hct) 42.5 36.0-48.0 N [facility] PasoNuodnlyECAUYQKYZF8750-60-90 07:19:00 Test Item Value Reference Range Interpretation Comments MCV (test code = MCV) 92.3 81.0-99.0 N [facility] PasoUrqqyoaMKTCHKVEVZ4365-75-77 07:19:00 Test Item Value Reference Range Interpretation Comments MCH (test code = MCH) 30.5 pg 27.0-31.0 N [facility]OvyhyegUPNZKYEJUY8218-50-14 07:19:00 Test Item Value Reference Range Interpretation Comments MCHC (test code = MCHC) 33.0 32.0-36.0 N [facility] PasoHacwyatULWUQAZPQY8597-28-95 07:19:00 Test Item Value Reference Range Interpretation Comments RDW (test code = RDW) 14.6 11.5-14.5 H [facility] PasoKoaiavjTKCGGMAUVV6295-30-37 07:19:00 Test Item Value Reference Range Interpretation Comments Platelet (test code = Platelet) 215 133-450 N [facility]YnbnkhqHTKLDIOAWX1616-08-11 07:19:00 Test Item Value Reference Range Interpretation Comments MPV (test code = MPV) 10.0 7.4-10.4 N [facility] PasoDfevlmtFYFPHOKHAL6071-57-99 07:19:00 Test Item Value Reference Range Interpretation Comments RBC (test code = RBC) 4.60 4.20-5.40 N [facility]oSprfptwGILOGVGDLL0544-45-48 07:19:00 Test Item Value Reference Range Interpretation Comments WBC (test code = WBC) 13.0 3.7-10.4 H [facility] HospitalPpnzwteGLTCXCVSE5200-37-63 07:19:00 Test Item Value Reference Range Interpretation Comments AGAP (test code = AGAP) 14.3 10.0-20.0 N [facility] HospitalWvfkcpjILYBXIDGR2939-70-40 07:19:00 Test Item Value Reference Range Interpretation Comments eGFR (test code = eGFR) 75 [facility] HospitalTnsvhxjKBOCMGZKT5466-29-35 07:19:00 Test Item Value Reference Range Interpretation Comments Sodium Lvl (test code = Sodium Lvl) 139 135-145 N [facility] HospitalCfrdaaaJOAQDDSJL5386-46-80 07:19:00 Test Item Value Reference Range Interpretation Comments Chloride Lvl (test code = Chloride Lvl) 104 95-109 N [facility] HospitalBkehhlgEYUZERRXH4938-26-15 07:19:00 Test Item Value Reference Range Interpretation Comments CO2 (test code = CO2) 25 24-32 N [facility] HospitalZobpatuBSVYJGOUC2726-20-74 07:19:00 Test Item Value Reference Range Interpretation Comments Calcium Lvl (test code = Calcium Lvl) 10.7 8.5-10.5 H [facility] HospitalHyskiqjVYKQMWEQP1217-44-17 07:19:00 Test Item Value Reference Range Interpretation Comments Potassium Lvl (test code = Potassium 4.3 3.5-5.1 N Lvl) [facility] HospitalZmrtpyzVGHYQOVAB8136-09-41 07:19:00 Test Item Value Reference Range Interpretation Comments Glucose Lvl (test code = Glucose Lvl) 262 70-99 H [facility] HospitalWnrelbhYSZVYHMAG6044-73-82 07:19:00 Test Item Value Reference Range Interpretation Comments Creatinine Lvl (test code = Creatinine 0.8 0.5-1.4 N Lvl) [facility] HospitalOjvnhavUWUOANWVJ1326-33-47 07:19:00 Test Item Value Reference Range Interpretation Comments BUN (test code = BUN) 20 7-22 N [facility]MwbueiwBFOYGDQMUI6029-84-47 07:19:00 Test Item Value Reference Range Interpretation Comments Hgb (test code = Hgb) 14.0 12.0-16.0 N [facility] PasoJzifxngOHQGILUBNS3910-84-51 07:19:00 Test Item Value Reference Range Interpretation Comments Hct (test code = Hct) 42.5 36.0-48.0 N [facility] PasoVkosabjOXAPWZEHDS4382-44-67 07:19:00 Test Item Value Reference Range Interpretation Comments MCV (test code = MCV) 92.3 81.0-99.0 N [facility] PasoShdifutZVFJVSRMAR1760-38-48 07:19:00 Test Item Value Reference Range Interpretation Comments MCH (test code = MCH) 30.5 pg 27.0-31.0 N [facility]CgfvwybTVQNWWSOXA2313-07-86 07:19:00 Test Item Value Reference Range Interpretation Comments MCHC (test code = MCHC) 33.0 32.0-36.0 N [facility] PasoDlrztzdYJDNIOWAGM5936-85-54 07:19:00 Test Item Value Reference Range Interpretation Comments RDW (test code = RDW) 14.6 11.5-14.5 H [facility] PasoRrkefmsOIWTSYSYIP2296-05-92 07:19:00 Test Item Value Reference Range Interpretation Comments Platelet (test code = Platelet) 215 133-450 N [facility] PasoBllhlzpAFPRADGXZI8836-44-99 07:19:00 Test Item Value Reference Range Interpretation Comments MPV (test code = MPV) 10.0 7.4-10.4 N [facility]OjsobchXTLRNGIBZG8771-66-19 07:19:00 Test Item Value Reference Range Interpretation Comments RBC (test code = RBC) 4.60 4.20-5.40 N [facility] PasoZykvnbiKEGFQVFMXL9057-93-69 07:19:00 Test Item Value Reference Range Interpretation Comments WBC (test code = WBC) 13.0 3.7-10.4 H [facility] HospitalHhgavxiREQCAGDOE3726-27-58 07:19:00 Test Item Value Reference Range Interpretation Comments AGAP (test code = AGAP) 14.3 10.0-20.0 N [facility] HospitalZrzweixHDQORILQW1661-88-62 07:19:00 Test Item Value Reference Range Interpretation Comments eGFR (test code = eGFR) 75 [facility] HospitalCzhyoinUYUTXWDZQ6177-15-60 07:19:00 Test Item Value Reference Range Interpretation Comments Sodium Lvl (test code = Sodium Lvl) 139 135-145 N [facility] HospitalAbjqpreYQBCBXNRD7685-63-00 07:19:00 Test Item Value Reference Range Interpretation Comments Chloride Lvl (test code = Chloride Lvl) 104 95-109 N [facility] HospitalPfokanbUVQMTPBXB6459-71-93 07:19:00 Test Item Value Reference Range Interpretation Comments CO2 (test code = CO2) 25 24-32 N [facility] HospitalGljednxZIPEQOMTS8205-83-39 07:19:00 Test Item Value Reference Range Interpretation Comments Calcium Lvl (test code = Calcium Lvl) 10.7 8.5-10.5 H [facility] HospitalQyrceaeUDQEZDVNX3837-65-26 07:19:00 Test Item Value Reference Range Interpretation Comments Potassium Lvl (test code = Potassium 4.3 3.5-5.1 N Lvl) [facility] HospitalNuvhjzcBCWNCMIJC4731-62-01 07:19:00 Test Item Value Reference Range Interpretation Comments Glucose Lvl (test code = Glucose Lvl) 262 70-99 H [facility] HospitalTebweinMUJSOCANF3926-29-13 07:19:00 Test Item Value Reference Range Interpretation Comments Creatinine Lvl (test code = Creatinine 0.8 0.5-1.4 N Lvl) [facility] HospitalHjwltaeHRZHJMZCN6412-08-36 07:19:00 Test Item Value Reference Range Interpretation Comments BUN (test code = BUN) 20 7-22 N [facility]PxllsegUELJEIYKXR5686-02-67 07:19:00 Test Item Value Reference Range Interpretation Comments Hgb (test code = Hgb) 14.0 12.0-16.0 N [facility] PasoAbflsriUIOAAQTRWO5997-20-09 07:19:00 Test Item Value Reference Range Interpretation Comments Hct (test code = Hct) 42.5 36.0-48.0 N [facility] PasoWurfhmnYOXZGJTEGW4609-53-69 07:19:00 Test Item Value Reference Range Interpretation Comments MCV (test code = MCV) 92.3 81.0-99.0 N [facility] PasoArqkvpqIPZEQUWJLJ5371-50-63 07:19:00 Test Item Value Reference Range Interpretation Comments MCH (test code = MCH) 30.5 pg 27.0-31.0 N [facility]oSdnzlvzRURUMXPHKN8904-14-68 07:19:00 Test Item Value Reference Range Interpretation Comments MCHC (test code = MCHC) 33.0 32.0-36.0 N [facility] PasoFislxjdHDTJEBQTEN8516-36-27 07:19:00 Test Item Value Reference Range Interpretation Comments RDW (test code = RDW) 14.6 11.5-14.5 H [facility] [place]AkirqfiWXJFYEZFGQ3037-01-32 07:19:00 Test Item Value Reference Range Interpretation Comments Platelet (test code = Platelet) 215 133-450 N [facility] PasoNhsmrotTPVDLACWDQ4111-59-45 07:19:00 Test Item Value Reference Range Interpretation Comments MPV (test code = MPV) 10.0 7.4-10.4 N [facility] PasoBlncpqrWZBUYBNGQI9924-60-48 07:19:00 Test Item Value Reference Range Interpretation Comments RBC (test code = RBC) 4.60 4.20-5.40 N [facility] PasoOyacosrDGIAMWJSHQ9172-92-42 07:19:00 Test Item Value Reference Range Interpretation Comments WBC (test code = WBC) 13.0 3.7-10.4 [facility]UlylnqsFUASYIYGT6394-71-29 07:19:00 Test Item Value Reference Range Interpretation Comments AGAP (test code = AGAP) 14.3 10.0-20.0 N [facility] HospitalZcdozceRTCZWFAAR7896-93-12 07:19:00 Test Item Value Reference Range Interpretation Comments eGFR (test code = eGFR) 75 [facility] HospitalUopqwtzNZYIMPMWX0266-52-30 07:19:00 Test Item Value Reference Range Interpretation Comments Sodium Lvl (test code = Sodium Lvl) 139 135-145 N [facility] HospitalXwwiiquNQJSSUDFJ5921-38-33 07:19:00 Test Item Value Reference Range Interpretation Comments Chloride Lvl (test code = Chloride Lvl) 104 95-109 N [facility] HospitalMpddokpELVZVCLCU0444-78-49 07:19:00 Test Item Value Reference Range Interpretation Comments CO2 (test code = CO2) 25 24-32 N [facility] HospitalNskqkniZXRYVVOGZ2024-59-52 07:19:00 Test Item Value Reference Range Interpretation Comments Calcium Lvl (test code = Calcium Lvl) 10.7 8.5-10.5 H [facility] HospitalFgnyndmZGRBPSPAI8143-65-30 07:19:00 Test Item Value Reference Range Interpretation Comments Potassium Lvl (test code = Potassium 4.3 3.5-5.1 N Lvl) [facility] HospitalTxdqewwIKONHVQAR4591-07-30 07:19:00 Test Item Value Reference Range Interpretation Comments Glucose Lvl (test code = Glucose Lvl) 262 70-99 H [facility] HospitalTaueotaLGXYQIWTU8402-91-67 07:19:00 Test Item Value Reference Range Interpretation Comments Creatinine Lvl (test code = Creatinine 0.8 0.5-1.4 N Lvl) [facility] HospitalSofeskaEPUZUQIKP2858-17-73 07:19:00 Test Item Value Reference Range Interpretation Comments BUN (test code = BUN) 20 7-22 N [facility] PasoTlnbdjvPYQRLISHSA7892-65-69 07:19:00 Test Item Value Reference Range Interpretation Comments Hgb (test code = Hgb) 14.0 12.0-16.0 N [facility] PasoRcxmtwuQJYFWEZAPH8146-10-39 07:19:00 Test Item Value Reference Range Interpretation Comments Hct (test code = Hct) 42.5 36.0-48.0 N [facility] PasoOonhivqAYIMWQGHUM8960-24-77 07:19:00 Test Item Value Reference Range Interpretation Comments MCV (test code = MCV) 92.3 81.0-99.0 N [facility] PasoRyljdixWVIGGDDUZQ3391-26-19 07:19:00 Test Item Value Reference Range Interpretation Comments MCH (test code = MCH) 30.5 pg 27.0-31.0 N [facility] PasoUnrjncnODJBPJSTTL6381-94-52 07:19:00 Test Item Value Reference Range Interpretation Comments MCHC (test code = MCHC) 33.0 32.0-36.0 N [facility] PasoJyasdexKSMIJADZWY4135-33-73 07:19:00 Test Item Value Reference Range Interpretation Comments RDW (test code = RDW) 14.6 11.5-14.5 H [facility] PasoGtbbgbqWFDHACQEKF3761-21-43 07:19:00 Test Item Value Reference Range Interpretation Comments Platelet (test code = Platelet) 215 133-450 N [facility] PasoHjubsjcLEAMMXJMVW7214-60-82 07:19:00 Test Item Value Reference Range Interpretation Comments MPV (test code = MPV) 10.0 7.4-10.4 N [facility] PasoAlxyudeEZWCNTIASU0567-56-55 07:19:00 Test Item Value Reference Range Interpretation Comments RBC (test code = RBC) 4.60 4.20-5.40 N [facility] PasoPifwbhrAIVPWYTGJJ8037-84-70 07:19:00 Test Item Value Reference Range Interpretation Comments WBC (test code = WBC) 13.0 3.7-10.4 H [facility] HospitalYptjexuZJTTAXSQO8270-38-99 07:19:00 Test Item Value Reference Range Interpretation Comments AGAP (test code = AGAP) 14.3 10.0-20.0 N [facility] HospitalAclyhjdBIADMQJLF5185-93-86 07:19:00 Test Item Value Reference Range Interpretation Comments eGFR (test code = eGFR) 75 [facility] HospitalRcopngqWNNJBUIZU4154-50-01 07:19:00 Test Item Value Reference Range Interpretation Comments Sodium Lvl (test code = Sodium Lvl) 139 135-145 N [facility] HospitalZkkabdiLPQOKQHTO8670-99-90 07:19:00 Test Item Value Reference Range Interpretation Comments Chloride Lvl (test code = Chloride Lvl) 104 95-109 N [facility] HospitalKpyjziiZPUAQUYFA7590-93-49 07:19:00 Test Item Value Reference Range Interpretation Comments CO2 (test code = CO2) 25 24-32 N [facility] HospitalXcutzelOGPYVGFMS5531-10-61 07:19:00 Test Item Value Reference Range Interpretation Comments Calcium Lvl (test code = Calcium Lvl) 10.7 8.5-10.5 H [facility] HospitalMmzwtqfHPDNAHUJK6596-67-09 07:19:00 Test Item Value Reference Range Interpretation Comments Potassium Lvl (test code = Potassium 4.3 3.5-5.1 N Lvl) [facility] HospitalIaywuylSQLTZVBVQ6200-51-73 07:19:00 Test Item Value Reference Range Interpretation Comments Glucose Lvl (test code = Glucose Lvl) 262 70-99 H [facility] HospitalHxvlcneZPJHOKUFF4776-34-25 07:19:00 Test Item Value Reference Range Interpretation Comments Creatinine Lvl (test code = Creatinine 0.8 0.5-1.4 N Lvl) [facility] HospitalLaqcrslFFFTOUTXZ1061-44-38 07:19:00 Test Item Value Reference Range Interpretation Comments BUN (test code = BUN) 20 7-22 N [facility] PasoNlraqsbGEWZDDMFTW4753-70-17 07:19:00 Test Item Value Reference Range Interpretation Comments Hgb (test code = Hgb) 14.0 12.0-16.0 N [facility] PasoTpygfouQNCPBOHEXV2277-27-47 07:19:00 Test Item Value Reference Range Interpretation Comments Hct (test code = Hct) 42.5 36.0-48.0 N [facility] PasoWecsxumRCSWUYTPDZ2603-55-78 07:19:00 Test Item Value Reference Range Interpretation Comments MCV (test code = MCV) 92.3 81.0-99.0 N [facility] PasoDdosvqzDMSFRZKLHC4680-71-74 07:19:00 Test Item Value Reference Range Interpretation Comments MCH (test code = MCH) 30.5 pg 27.0-31.0 N [facility] PasoTefyxfeBNRUNCJUWA8649-54-52 07:19:00 Test Item Value Reference Range Interpretation Comments MCHC (test code = MCHC) 33.0 32.0-36.0 N [facility] PasoGupnbklSODFUJEIFO6527-04-24 07:19:00 Test Item Value Reference Range Interpretation Comments RDW (test code = RDW) 14.6 11.5-14.5 H [facility] PasoEvtdiaiYZAPUEJQTA6037-50-39 07:19:00 Test Item Value Reference Range Interpretation Comments Platelet (test code = Platelet) 215 133-450 N [facility] PasoQwmqytxVSQZCIINYY0521-71-92 07:19:00 Test Item Value Reference Range Interpretation Comments MPV (test code = MPV) 10.0 7.4-10.4 N [facility] PasoWnxlawgULJTYUFEZC2115-91-19 07:19:00 Test Item Value Reference Range Interpretation Comments RBC (test code = RBC) 4.60 4.20-5.40 N [facility] HospitalRrrectxHNSYDJFHG2610-87-62 07:19:00 Test Item Value Reference Range Interpretation Comments AGAP (test code = AGAP) 14.3 10.0-20.0 N [facility] PasoQhxulquMZANABVHWR5086-06-06 07:19:00 Test Item Value Reference Range Interpretation Comments WBC (test code = WBC) 13.0 3.7-10.4 H [facility] HospitalPbjiqygKPPKSRCNA2695-61-82 07:19:00 Test Item Value Reference Range Interpretation Comments eGFR (test code = eGFR) 75 [facility] HospitalQtkyhhkQZNIZSUMZ3056-01-95 07:19:00 Test Item Value Reference Range Interpretation Comments Sodium Lvl (test code = Sodium Lvl) 139 135-145 N [facility] HospitalSrmcqqrHDJHXRYLX3494-12-91 07:19:00 Test Item Value Reference Range Interpretation Comments Chloride Lvl (test code = Chloride Lvl) 104 95-109 N [facility] HospitalEzxfaboKQVGBYZIW6403-99-50 07:19:00 Test Item Value Reference Range Interpretation Comments CO2 (test code = CO2) 25 24-32 N [facility] HospitalEgkwkaePVMYDLWBP2162-16-92 07:19:00 Test Item Value Reference Range Interpretation Comments Calcium Lvl (test code = Calcium Lvl) 10.7 8.5-10.5 H [facility] HospitalWtkoggrSOKHHLQXX2132-78-27 07:19:00 Test Item Value Reference Range Interpretation Comments Potassium Lvl (test code = Potassium 4.3 3.5-5.1 N Lvl) [facility] HospitalMwdqfxhBDKRKSQEH4131-13-28 07:19:00 Test Item Value Reference Range Interpretation Comments Glucose Lvl (test code = Glucose Lvl) 262 70-99 H [facility] HospitalXiorhseMVLZXQYNG5872-54-39 07:19:00 Test Item Value Reference Range Interpretation Comments Creatinine Lvl (test code = Creatinine 0.8 0.5-1.4 N Lvl) [facility] HospitalCcysnvaVYIJVMXFR3595-80-93 07:19:00 Test Item Value Reference Range Interpretation Comments BUN (test code = BUN) 20 7-22 N [facility] PasoYitsendNUQJEPUYWN6451-44-75 07:19:00 Test Item Value Reference Range Interpretation Comments Hgb (test code = Hgb) 14.0 12.0-16.0 N [facility] PasoRfhjlenBZWUQFLXFO9689-33-51 07:19:00 Test Item Value Reference Range Interpretation Comments Hct (test code = Hct) 42.5 36.0-48.0 N [facility] PasoHalglpaIVFAKEBIIB5698-11-85 07:19:00 Test Item Value Reference Range Interpretation Comments MCV (test code = MCV) 92.3 81.0-99.0 N [facility] PasoLdmvpceHCHZBKMQLY3089-41-20 07:19:00 Test Item Value Reference Range Interpretation Comments MCH (test code = MCH) 30.5 pg 27.0-31.0 N [facility] PasoLyzkkvcDVVRSCXBOC5097-99-43 07:19:00 Test Item Value Reference Range Interpretation Comments MCHC (test code = MCHC) 33.0 32.0-36.0 N [facility] PasoFjlcuyxPKCNLFOBSQ6998-55-39 07:19:00 Test Item Value Reference Range Interpretation Comments RDW (test code = RDW) 14.6 11.5-14.5 H [facility] PasoSpokujeRPXAYRXGTO1631-48-27 07:19:00 Test Item Value Reference Range Interpretation Comments Platelet (test code = Platelet) 215 133-450 N [facility] PasoPhpixhoZUODEKSNUB9784-66-22 07:19:00 Test Item Value Reference Range Interpretation Comments MPV (test code = MPV) 10.0 7.4-10.4 N [facility] PasoHfnurejFDVTJBIHZP6560-66-14 07:19:00 Test Item Value Reference Range Interpretation Comments RBC (test code = RBC) 4.60 4.20-5.40 N [facility] PasoMayahctCGIFRGBSFC9184-64-74 07:19:00 Test Item Value Reference Range Interpretation Comments WBC (test code = WBC) 13.0 3.7-10.4 H [facility] HospitalOjfjsfcXWNNNUBAQ4240-65-17 07:19:00 Test Item Value Reference Range Interpretation Comments AGAP (test code = AGAP) 14.3 10.0-20.0 N [facility] HospitalVnymyuaHMCZWUATM0274-44-73 07:19:00 Test Item Value Reference Range Interpretation Comments eGFR (test code = eGFR) 75 [facility] HospitalUlkgyyrTQIWQYDCL9074-82-84 07:19:00 Test Item Value Reference Range Interpretation Comments Sodium Lvl (test code = Sodium Lvl) 139 135-145 N [facility] HospitalYheksloKPRJICQSE7732-52-50 07:19:00 Test Item Value Reference Range Interpretation Comments Chloride Lvl (test code = Chloride Lvl) 104 95-109 N [facility] HospitalQanvsclBWKTXQATM5221-67-94 07:19:00 Test Item Value Reference Range Interpretation Comments CO2 (test code = CO2) 25 24-32 N [facility] HospitalCttprrwCOJUMWLXB1804-56-55 07:19:00 Test Item Value Reference Range Interpretation Comments Calcium Lvl (test code = Calcium Lvl) 10.7 8.5-10.5 H [facility] HospitalVdtogfpTRFYYBBJU1043-92-17 07:19:00 Test Item Value Reference Range Interpretation Comments Potassium Lvl (test code = Potassium 4.3 3.5-5.1 N Lvl) [facility] HospitalWuhcmecNHZBMOMSK9712-08-93 07:19:00 Test Item Value Reference Range Interpretation Comments Glucose Lvl (test code = Glucose Lvl) 262 70-99 H [facility] HospitalTjqmscnIBEUFXPTS0619-14-79 07:19:00 Test Item Value Reference Range Interpretation Comments Creatinine Lvl (test code = Creatinine 0.8 0.5-1.4 N Lvl) [facility] HospitalOnlcbkqZYGVSEBLM8696-78-28 07:19:00 Test Item Value Reference Range Interpretation Comments BUN (test code = BUN) 20 7-22 N [facility] PasoItoemfcDULREAJYMX0402-02-86 07:19:00 Test Item Value Reference Range Interpretation Comments Hgb (test code = Hgb) 14.0 12.0-16.0 N [facility] PasoNtwepjzYXDMLFPEXU4819-56-05 07:19:00 Test Item Value Reference Range Interpretation Comments Hct (test code = Hct) 42.5 36.0-48.0 N [facility] PasoBifkvmyNKKVYLYCDY9393-25-15 07:19:00 Test Item Value Reference Range Interpretation Comments MCV (test code = MCV) 92.3 81.0-99.0 N [facility] PasoPtwhiwpTHNBALIKME7013-05-15 07:19:00 Test Item Value Reference Range Interpretation Comments MCH (test code = MCH) 30.5 pg 27.0-31.0 N [facility] PasoQjauhnePPBRPCNQLQ8249-55-59 07:19:00 Test Item Value Reference Range Interpretation Comments MCHC (test code = MCHC) 33.0 32.0-36.0 N [facility] PasoQtlhlptVYKLQEOMYY1680-35-05 07:19:00 Test Item Value Reference Range Interpretation Comments RDW (test code = RDW) 14.6 11.5-14.5 H [facility] PasoUuhndgpKDSEFQHFPC0229-90-79 07:19:00 Test Item Value Reference Range Interpretation Comments Platelet (test code = Platelet) 215 133-450 N [facility] PasoZawlwufLIQFMFDNHY2697-30-87 07:19:00 Test Item Value Reference Range Interpretation Comments MPV (test code = MPV) 10.0 7.4-10.4 N [facility] PasoSrmpyyzSTXTFFTVTG6342-74-87 07:19:00 Test Item Value Reference Range Interpretation Comments RBC (test code = RBC) 4.60 4.20-5.40 N [facility] PasoZebmzaoWOJDZZQTTS0857-00-62 07:19:00 Test Item Value Reference Range Interpretation Comments WBC (test code = WBC) 13.0 3.7-10.4 H [facility] HospitalRoylqkfPWHKWLKEZ1812-02-87 07:19:00 Test Item Value Reference Range Interpretation Comments AGAP (test code = AGAP) 14.3 10.0-20.0 N [facility] HospitalZslhmwuIDUHGGUPE0161-16-60 07:19:00 Test Item Value Reference Range Interpretation Comments eGFR (test code = eGFR) 75 [facility] HospitalLoifhgpVKXZGQFVZ3103-50-61 07:19:00 Test Item Value Reference Range Interpretation Comments Sodium Lvl (test code = Sodium Lvl) 139 135-145 N [facility] HospitalIarqmuzUXCQLWDSQ0407-31-70 07:19:00 Test Item Value Reference Range Interpretation Comments Chloride Lvl (test code = Chloride Lvl) 104 95-109 N [facility] HospitalEeryzqoYKBVHCHOW3899-54-55 07:19:00 Test Item Value Reference Range Interpretation Comments CO2 (test code = CO2) 25 24-32 N [facility] HospitalCrgmlcqAEXNJSBJB4346-48-36 07:19:00 Test Item Value Reference Range Interpretation Comments Calcium Lvl (test code = Calcium Lvl) 10.7 8.5-10.5 H [facility] HospitalOxpzegpEEZHAMZTS6960-86-10 07:19:00 Test Item Value Reference Range Interpretation Comments Potassium Lvl (test code = Potassium 4.3 3.5-5.1 N Lvl) [facility] HospitalOnlztmtYJFQSTDFF9214-46-70 07:19:00 Test Item Value Reference Range Interpretation Comments Glucose Lvl (test code = Glucose Lvl) 262 70-99 H [facility] HospitalXehhlbhUHGUKBJWX8068-82-56 07:19:00 Test Item Value Reference Range Interpretation Comments Creatinine Lvl (test code = Creatinine 0.8 0.5-1.4 N Lvl) [facility] HospitalSetbjotWXNVLEHBT5874-11-66 07:19:00 Test Item Value Reference Range Interpretation Comments BUN (test code = BUN) 20 7-22 N [facility] PasoYayozglTJOHISPYPD8319-41-06 07:19:00 Test Item Value Reference Range Interpretation Comments Hgb (test code = Hgb) 14.0 12.0-16.0 N [facility] PasoUcdnzsuHHFNAQEGHI2563-45-15 07:19:00 Test Item Value Reference Range Interpretation Comments Hct (test code = Hct) 42.5 36.0-48.0 N [facility] PasoGidwawfRSDTFEEBBA4044-40-31 07:19:00 Test Item Value Reference Range Interpretation Comments MCV (test code = MCV) 92.3 81.0-99.0 N [facility] PasoPzdhautPABZQQWPHB4537-63-17 07:19:00 Test Item Value Reference Range Interpretation Comments MCH (test code = MCH) 30.5 pg 27.0-31.0 N [facility] PasoEkwonpcGTGYQMCOEE3599-49-49 07:19:00 Test Item Value Reference Range Interpretation Comments MCHC (test code = MCHC) 33.0 32.0-36.0 N [facility] PasoWcsfyiqCRCBEXVURD4370-60-71 07:19:00 Test Item Value Reference Range Interpretation Comments RDW (test code = RDW) 14.6 11.5-14.5 H [facility] PasoLqxqcloQLEWAWEBBQ2769-76-63 07:19:00 Test Item Value Reference Range Interpretation Comments Platelet (test code = Platelet) 215 133-450 N [facility] PasoOqdoiarKBOCMPGNGQ4083-47-78 07:19:00 Test Item Value Reference Range Interpretation Comments MPV (test code = MPV) 10.0 7.4-10.4 N [facility] PasoQbnfhtcUAPLYZGNKY2100-70-85 07:19:00 Test Item Value Reference Range Interpretation Comments RBC (test code = RBC) 4.60 4.20-5.40 N [facility] PasoSkpxizwMSBLEYAENR9916-32-50 07:19:00 Test Item Value Reference Range Interpretation Comments WBC (test code = WBC) 13.0 3.7-10.4 H [facility] HospitalEcbxydePIDIAYJAO7519-30-03 07:19:00 Test Item Value Reference Range Interpretation Comments AGAP (test code = AGAP) 14.3 10.0-20.0 N [facility] HospitalWqqkapeVLBRQLUSU1080-47-52 07:19:00 Test Item Value Reference Range Interpretation Comments eGFR (test code = eGFR) 75 [facility] HospitalImkjpvzVYKWKMQJG6307-48-86 07:19:00 Test Item Value Reference Range Interpretation Comments Sodium Lvl (test code = Sodium Lvl) 139 135-145 N [facility] HospitalMjvnmecXOPEUPTUJ0458-50-24 07:19:00 Test Item Value Reference Range Interpretation Comments Chloride Lvl (test code = Chloride Lvl) 104 95-109 N [facility] HospitalHikqaavHNYXMXRZA3135-81-20 07:19:00 Test Item Value Reference Range Interpretation Comments CO2 (test code = CO2) 25 24-32 N [facility] HospitalAlbqnfcKMRDCNZWB4219-04-26 07:19:00 Test Item Value Reference Range Interpretation Comments Calcium Lvl (test code = Calcium Lvl) 10.7 8.5-10.5 H [facility] HospitalKvavlveTBUASICNP1778-74-61 07:19:00 Test Item Value Reference Range Interpretation Comments Potassium Lvl (test code = Potassium 4.3 3.5-5.1 N Lvl) [facility] HospitalPnoshryMZKOEPWBX7933-21-89 07:19:00 Test Item Value Reference Range Interpretation Comments Glucose Lvl (test code = Glucose Lvl) 262 70-99 H [facility] HospitalCoppahnHNMYIBICP1292-99-48 07:19:00 Test Item Value Reference Range Interpretation Comments Creatinine Lvl (test code = Creatinine 0.8 0.5-1.4 N Lvl) [facility] HospitalEbqzrceILRIGEHLD8078-68-53 07:19:00 Test Item Value Reference Range Interpretation Comments BUN (test code = BUN) 20 7-22 N [facility] PasoQcxuwkaDEEAWTWHHY4227-72-58 07:19:00 Test Item Value Reference Range Interpretation Comments Hgb (test code = Hgb) 14.0 12.0-16.0 N [facility] PasoWheupewIEHJXVHJOE3205-23-60 07:19:00 Test Item Value Reference Range Interpretation Comments Hct (test code = Hct) 42.5 36.0-48.0 N [facility] PasoGnmpymsWAALUUUCWB7280-27-14 07:19:00 Test Item Value Reference Range Interpretation Comments MCV (test code = MCV) 92.3 81.0-99.0 N [facility] PasoNmoukpgOBZKIADYFZ3769-81-87 07:19:00 Test Item Value Reference Range Interpretation Comments MCH (test code = MCH) 30.5 pg 27.0-31.0 N [facility] PasoKwfwsjvGQXLIVZVJE7133-25-15 07:19:00 Test Item Value Reference Range Interpretation Comments MCHC (test code = MCHC) 33.0 32.0-36.0 N [facility] PasoJgbsouvLOLRCVKQKJ3614-68-10 07:19:00 Test Item Value Reference Range Interpretation Comments RDW (test code = RDW) 14.6 11.5-14.5 H [facility] PasoYlawdteQIGLSWUXNW7386-42-73 07:19:00 Test Item Value Reference Range Interpretation Comments Platelet (test code = Platelet) 215 133-450 N [facility] PasoTghpcvtRVEIZSWSTW2459-13-11 07:19:00 Test Item Value Reference Range Interpretation Comments MPV (test code = MPV) 10.0 7.4-10.4 N [facility] PasoCxjipviJXOGYRSXNG4459-70-79 07:19:00 Test Item Value Reference Range Interpretation Comments RBC (test code = RBC) 4.60 4.20-5.40 N [facility] PasoHbfohqiIWSVAQSETB0274-62-54 07:19:00 Test Item Value Reference Range Interpretation Comments WBC (test code = WBC) 13.0 3.7-10.4 H [facility] HospitalZekvmviPWPULXTMS8235-80-16 07:19:00 Test Item Value Reference Range Interpretation Comments AGAP (test code = AGAP) 14.3 10.0-20.0 N [facility] HospitalKwadljjHBUCSTAAS5405-49-39 07:19:00 Test Item Value Reference Range Interpretation Comments eGFR (test code = eGFR) 75 [facility] HospitalUchvtcuUZETCDOGV9806-16-07 07:19:00 Test Item Value Reference Range Interpretation Comments Sodium Lvl (test code = Sodium Lvl) 139 135-145 N [facility] HospitalEbncgltXASOZVNNT4591-90-55 07:19:00 Test Item Value Reference Range Interpretation Comments Chloride Lvl (test code = Chloride Lvl) 104 95-109 N [facility] HospitalIvlekqeNWIIDTLCN7239-15-59 07:19:00 Test Item Value Reference Range Interpretation Comments CO2 (test code = CO2) 25 24-32 N [facility] HospitalWivervmEXLYEVLOT6325-04-01 07:19:00 Test Item Value Reference Range Interpretation Comments Calcium Lvl (test code = Calcium Lvl) 10.7 8.5-10.5 H [facility] HospitalVwmroxdUUQGKDTCL6845-92-78 07:19:00 Test Item Value Reference Range Interpretation Comments Potassium Lvl (test code = Potassium 4.3 3.5-5.1 N Lvl) [facility] HospitalWexlgcaMKUXPXXSG5780-94-37 07:19:00 Test Item Value Reference Range Interpretation Comments Glucose Lvl (test code = Glucose Lvl) 262 70-99 H [facility] HospitalEfnkvqsOWXYMCRVM4530-51-44 07:19:00 Test Item Value Reference Range Interpretation Comments Creatinine Lvl (test code = Creatinine 0.8 0.5-1.4 N Lvl) [facility] HospitalFprztfsSXLCAFMBH2781-84-26 07:19:00 Test Item Value Reference Range Interpretation Comments BUN (test code = BUN) 20 7-22 N [facility] PasoSthbzbnBMAYMVQHPO3519-69-05 07:19:00 Test Item Value Reference Range Interpretation Comments Hgb (test code = Hgb) 14.0 12.0-16.0 N [facility] PasoKspjephLUFLOIINUA2183-53-57 07:19:00 Test Item Value Reference Range Interpretation Comments Hct (test code = Hct) 42.5 36.0-48.0 N [facility] PasoYqsimmhABUUIPLQIX8721-27-86 07:19:00 Test Item Value Reference Range Interpretation Comments MCV (test code = MCV) 92.3 81.0-99.0 N [facility] PasoUzbnomkYZHQWCWCFV6790-39-93 07:19:00 Test Item Value Reference Range Interpretation Comments MCH (test code = MCH) 30.5 pg 27.0-31.0 N [facility] PasoVtxbypcUYBVIDSSTM2821-09-12 07:19:00 Test Item Value Reference Range Interpretation Comments MCHC (test code = MCHC) 33.0 32.0-36.0 N [facility] PasoLaiplekQMRRJOHXZB3379-36-16 07:19:00 Test Item Value Reference Range Interpretation Comments RDW (test code = RDW) 14.6 11.5-14.5 H [facility] PasoWpafzzvYBTMYIHBQH9128-53-12 07:19:00 Test Item Value Reference Range Interpretation Comments Platelet (test code = Platelet) 215 133-450 N [facility] PasoQaaxmfcXPGPWSMCRN1865-58-68 07:19:00 Test Item Value Reference Range Interpretation Comments MPV (test code = MPV) 10.0 7.4-10.4 N [facility] PasoXatyjuvUSJWSOBHVA0514-54-23 07:19:00 Test Item Value Reference Range Interpretation Comments RBC (test code = RBC) 4.60 4.20-5.40 N [facility] PasoUjkcvmrJSGANHFJAQ0231-17-32 07:19:00 Test Item Value Reference Range Interpretation Comments WBC (test code = WBC) 13.0 3.7-10.4 [facility] HospitalFlotlsgJCTCYMHWK0172-00-82 07:19:00 Test Item Value Reference Range Interpretation Comments AGAP (test code = AGAP) 14.3 10.0-20.0 N [facility] HospitalSxtnwjvCYKLJFVEW8924-69-70 07:19:00 Test Item Value Reference Range Interpretation Comments eGFR (test code = eGFR) 75 [facility] HospitalDygxmuqVLJWPEQGP1098-33-38 07:19:00 Test Item Value Reference Range Interpretation Comments Sodium Lvl (test code = Sodium Lvl) 139 135-145 N [facility] HospitalAxriaqxLCRIMJRSE1850-48-07 07:19:00 Test Item Value Reference Range Interpretation Comments Chloride Lvl (test code = Chloride Lvl) 104 95-109 N [facility] HospitalKqutcjsVBNDVDVFI2915-93-29 07:19:00 Test Item Value Reference Range Interpretation Comments CO2 (test code = CO2) 25 24-32 N [facility] HospitalLymemfeEXINLDFEM6170-55-63 07:19:00 Test Item Value Reference Range Interpretation Comments Calcium Lvl (test code = Calcium Lvl) 10.7 8.5-10.5 H [facility] HospitalZajscolYBYHCAWLS2793-91-78 07:19:00 Test Item Value Reference Range Interpretation Comments Potassium Lvl (test code = Potassium 4.3 3.5-5.1 N Lvl) [facility] HospitalOzzfixxDTGJXYWYT2042-89-00 07:19:00 Test Item Value Reference Range Interpretation Comments Glucose Lvl (test code = Glucose Lvl) 262 70-99 H [facility] HospitalCnrtwjjGFAHPPNCR0345-03-87 07:19:00 Test Item Value Reference Range Interpretation Comments Creatinine Lvl (test code = Creatinine 0.8 0.5-1.4 N Lvl) [facility] HospitalVodufjrXMRAHZRUI6786-09-41 07:19:00 Test Item Value Reference Range Interpretation Comments BUN (test code = BUN) 20 7-22 N [facility]ZgxhzjpKGEOAHILXV2184-73-92 07:19:00 Test Item Value Reference Range Interpretation Comments Hgb (test code = Hgb) 14.0 12.0-16.0 N [facility] PasoZncnbbgUXFWLEPBUF7497-30-40 07:19:00 Test Item Value Reference Range Interpretation Comments Hct (test code = Hct) 42.5 36.0-48.0 N [facility] PasoVxjzmwuPWYLHSUMHR7701-12-83 07:19:00 Test Item Value Reference Range Interpretation Comments MCV (test code = MCV) 92.3 81.0-99.0 N [facility] PasoHujftheYGLIIFJXJD8997-95-99 07:19:00 Test Item Value Reference Range Interpretation Comments MCH (test code = MCH) 30.5 pg 27.0-31.0 N [facility] [place]QfbbjkiBPSVNVDDPP1670-61-02 07:19:00 Test Item Value Reference Range Interpretation Comments MCHC (test code = MCHC) 33.0 32.0-36.0 N [facility] PasoCoeoqqzRIZECADTPM6546-25-87 07:19:00 Test Item Value Reference Range Interpretation Comments RDW (test code = RDW) 14.6 11.5-14.5 H [facility] PasoGsglgldRVXBSFZDSN6895-57-72 07:19:00 Test Item Value Reference Range Interpretation Comments Platelet (test code = Platelet) 215 133-450 N [facility] PasoEebmmpdYXDRLZQKQK2198-84-61 07:19:00 Test Item Value Reference Range Interpretation Comments MPV (test code = MPV) 10.0 7.4-10.4 N [facility] PasoTskkctjYCWEKBXZTB7884-95-41 07:19:00 Test Item Value Reference Range Interpretation Comments RBC (test code = RBC) 4.60 4.20-5.40 N [facility] PasoQysjfsqWCZMJMPZHA0917-45-70 07:19:00 Test Item Value Reference Range Interpretation Comments WBC (test code = WBC) 13.0 3.7-10.4 H [facility] HospitalSnctcpaVSVMTLXRX4214-42-61 07:19:00 Test Item Value Reference Range Interpretation Comments AGAP (test code = AGAP) 14.3 10.0-20.0 N [facility] HospitalHrgpjmpWUZSUPMXO2167-92-34 07:19:00 Test Item Value Reference Range Interpretation Comments eGFR (test code = eGFR) 75 [facility] HospitalIoxbobjIVKGITDJY1183-51-28 07:19:00 Test Item Value Reference Range Interpretation Comments Sodium Lvl (test code = Sodium Lvl) 139 135-145 N [facility] HospitalFusqjxzKLPWBOIZX4993-56-41 07:19:00 Test Item Value Reference Range Interpretation Comments Chloride Lvl (test code = Chloride Lvl) 104 95-109 N [facility] HospitalZpehfupHBHEMRWZC9732-48-22 07:19:00 Test Item Value Reference Range Interpretation Comments CO2 (test code = CO2) 25 24-32 N [facility] HospitalVkrzccsRPFNFWBMC2213-87-25 07:19:00 Test Item Value Reference Range Interpretation Comments Calcium Lvl (test code = Calcium Lvl) 10.7 8.5-10.5 H [facility] HospitalUxrbpuaVXZVJAYLW6167-17-32 07:19:00 Test Item Value Reference Range Interpretation Comments Potassium Lvl (test code = Potassium 4.3 3.5-5.1 N Lvl) [facility] HospitalBryfhliAJSKDWOUO1838-70-74 07:19:00 Test Item Value Reference Range Interpretation Comments Glucose Lvl (test code = Glucose Lvl) 262 70-99 H [facility] HospitalQbwzyvlDRCVYTCVU4515-76-65 07:19:00 Test Item Value Reference Range Interpretation Comments Creatinine Lvl (test code = Creatinine 0.8 0.5-1.4 N Lvl) [facility] HospitalRfliglzWCTBCSHBF0972-30-40 07:19:00 Test Item Value Reference Range Interpretation Comments BUN (test code = BUN) 20 7-22 N [facility] PasoGrbhpywHQMGTCSYFY7572-59-85 07:19:00 Test Item Value Reference Range Interpretation Comments Hgb (test code = Hgb) 14.0 12.0-16.0 N [facility] PasoDiogueeDICXNSBERN8727-38-95 07:19:00 Test Item Value Reference Range Interpretation Comments Hct (test code = Hct) 42.5 36.0-48.0 N [facility] PasoVcxgoopYYFWROCMQN9082-06-72 07:19:00 Test Item Value Reference Range Interpretation Comments MCV (test code = MCV) 92.3 81.0-99.0 N [facility] PasoQhulsgfHWHMMMASGV0658-11-48 07:19:00 Test Item Value Reference Range Interpretation Comments MCH (test code = MCH) 30.5 pg 27.0-31.0 N [facility] PasoZpmnameEGZNJPXWIN4042-15-53 07:19:00 Test Item Value Reference Range Interpretation Comments MCHC (test code = MCHC) 33.0 32.0-36.0 N [facility] PasoZxttjlnJLXSZFDBDE2005-39-88 07:19:00 Test Item Value Reference Range Interpretation Comments RDW (test code = RDW) 14.6 11.5-14.5 H [facility] PasoBnvtefzQNTPBXTGBH4809-83-81 07:19:00 Test Item Value Reference Range Interpretation Comments Platelet (test code = Platelet) 215 133-450 N [facility] PasoMpicfkrONSVOLDLZF7748-90-78 07:19:00 Test Item Value Reference Range Interpretation Comments MPV (test code = MPV) 10.0 7.4-10.4 N [facility] PasoOyqztnzHFIQEJLYTB3344-84-55 07:19:00 Test Item Value Reference Range Interpretation Comments RBC (test code = RBC) 4.60 4.20-5.40 N [facility] PasoZtvhajgVUMPJATUUK4282-24-44 07:19:00 Test Item Value Reference Range Interpretation Comments WBC (test code = WBC) 13.0 3.7-10.4 H [facility] HospitalWmajxjlGVDGAIUAT8379-49-03 07:19:00 Test Item Value Reference Range Interpretation Comments AGAP (test code = AGAP) 14.3 10.0-20.0 N [facility] HospitalYemakcbULIJXLFDF5364-30-44 07:19:00 Test Item Value Reference Range Interpretation Comments eGFR (test code = eGFR) 75 [facility] HospitalYwttwbiOUJACVXEW5312-77-91 07:19:00 Test Item Value Reference Range Interpretation Comments Sodium Lvl (test code = Sodium Lvl) 139 135-145 N [facility] HospitalLdmpuzvPTEGTOHVC2004-57-30 07:19:00 Test Item Value Reference Range Interpretation Comments Chloride Lvl (test code = Chloride Lvl) 104 95-109 N [facility] HospitalUjfmogpHSQMOZTBJ7172-01-90 07:19:00 Test Item Value Reference Range Interpretation Comments CO2 (test code = CO2) 25 24-32 N [facility] HospitalWjicbttMFWXUPSVO9563-59-63 07:19:00 Test Item Value Reference Range Interpretation Comments Calcium Lvl (test code = Calcium Lvl) 10.7 8.5-10.5 H [facility] HospitalXknknetGAMSZPFZI8415-12-90 07:19:00 Test Item Value Reference Range Interpretation Comments Potassium Lvl (test code = Potassium 4.3 3.5-5.1 N Lvl) [facility] HospitalCknuprbAVFYDGYZT4931-88-11 07:19:00 Test Item Value Reference Range Interpretation Comments Glucose Lvl (test code = Glucose Lvl) 262 70-99 H [facility] HospitalAhltlveYKFIVABYL9362-76-39 07:19:00 Test Item Value Reference Range Interpretation Comments Creatinine Lvl (test code = Creatinine 0.8 0.5-1.4 N Lvl) [facility] HospitalYzvwneuMBPOPPOCP2917-23-34 07:19:00 Test Item Value Reference Range Interpretation Comments BUN (test code = BUN) 20 7-22 N [facility] PasoAgkoexrGYQVIOECGC2551-84-65 07:19:00 Test Item Value Reference Range Interpretation Comments Hgb (test code = Hgb) 14.0 12.0-16.0 N [facility] PasoXmtgumpERESIORRMG6595-93-87 07:19:00 Test Item Value Reference Range Interpretation Comments Hct (test code = Hct) 42.5 36.0-48.0 N [facility] PasoRfzorsnEXFZYCVKWW8627-38-39 07:19:00 Test Item Value Reference Range Interpretation Comments MCV (test code = MCV) 92.3 81.0-99.0 N [facility] PasoEdhiuunQRPQVLZCBY9375-01-52 07:19:00 Test Item Value Reference Range Interpretation Comments MCH (test code = MCH) 30.5 pg 27.0-31.0 N [facility] PasoVyrtsnpUPHBNAGFVG2496-43-01 07:19:00 Test Item Value Reference Range Interpretation Comments MCHC (test code = MCHC) 33.0 32.0-36.0 N [facility] PasoLyhfqaeTTVOTZKTIY3129-25-52 07:19:00 Test Item Value Reference Range Interpretation Comments RDW (test code = RDW) 14.6 11.5-14.5 H [facility] PasoVyzhkgqUKSBDWZJGW9488-83-97 07:19:00 Test Item Value Reference Range Interpretation Comments Platelet (test code = Platelet) 215 133-450 N [facility] PasoPncjdviGOUBONGOZB4917-21-60 07:19:00 Test Item Value Reference Range Interpretation Comments MPV (test code = MPV) 10.0 7.4-10.4 N [facility] PasoKicbvjdKJFMCQWNLS9004-79-91 07:19:00 Test Item Value Reference Range Interpretation Comments RBC (test code = RBC) 4.60 4.20-5.40 N [facility] PasoQyypetyKPOZEWPTGF8836-93-28 07:19:00 Test Item Value Reference Range Interpretation Comments WBC (test code = WBC) 13.0 3.7-10.4 H [facility] HospitalYseljufCPGCCPWYZ8622-87-29 07:19:00 Test Item Value Reference Range Interpretation Comments AGAP (test code = AGAP) 14.3 10.0-20.0 N [facility] HospitalZddoxciCJBCTBGXP3395-59-08 07:19:00 Test Item Value Reference Range Interpretation Comments eGFR (test code = eGFR) 75 [facility] HospitalFfsvgyjRHVDKAUVD6751-01-99 07:19:00 Test Item Value Reference Range Interpretation Comments Sodium Lvl (test code = Sodium Lvl) 139 135-145 N [facility] HospitalOzcmicrKNBMADONF9476-58-63 07:19:00 Test Item Value Reference Range Interpretation Comments Chloride Lvl (test code = Chloride Lvl) 104 95-109 N [facility] HospitalBkrjdtoMLKVZNUWO1744-94-64 07:19:00 Test Item Value Reference Range Interpretation Comments CO2 (test code = CO2) 25 24-32 N [facility] HospitalDpixyawNEBCJHCFQ5585-57-39 07:19:00 Test Item Value Reference Range Interpretation Comments Calcium Lvl (test code = Calcium Lvl) 10.7 8.5-10.5 H [facility] HospitalEesfdjdDSYONWWQW3946-17-38 07:19:00 Test Item Value Reference Range Interpretation Comments Potassium Lvl (test code = Potassium 4.3 3.5-5.1 N Lvl) [facility] HospitalSpputlhDBAYCPZNZ2337-29-68 07:19:00 Test Item Value Reference Range Interpretation Comments Glucose Lvl (test code = Glucose Lvl) 262 70-99 H [facility] HospitalNiqljrkHPKJYYHJP7345-00-68 07:19:00 Test Item Value Reference Range Interpretation Comments Creatinine Lvl (test code = Creatinine 0.8 0.5-1.4 N Lvl) [facility] HospitalEgmvlhvYQSJAGAAS0863-06-83 07:19:00 Test Item Value Reference Range Interpretation Comments BUN (test code = BUN) 20 7-22 N [facility] PasoRfbeearSOWPLNFIIK1876-34-01 07:19:00 Test Item Value Reference Range Interpretation Comments Hgb (test code = Hgb) 14.0 12.0-16.0 N [facility] PasoRavlwfgZVGTZQSBVY0264-61-86 07:19:00 Test Item Value Reference Range Interpretation Comments Hct (test code = Hct) 42.5 36.0-48.0 N [facility] PasoZihlywyXBEFADZDVV5343-00-76 07:19:00 Test Item Value Reference Range Interpretation Comments MCV (test code = MCV) 92.3 81.0-99.0 N [facility] PasoTzkscjwNQOZNHZWEH0641-73-47 07:19:00 Test Item Value Reference Range Interpretation Comments MCH (test code = MCH) 30.5 pg 27.0-31.0 N [facility] PasoRfrlderQOYGSUGGBY9550-73-72 07:19:00 Test Item Value Reference Range Interpretation Comments MCHC (test code = MCHC) 33.0 32.0-36.0 N [facility]QwjjuhlWWOWHCYDAB9003-80-12 07:19:00 Test Item Value Reference Range Interpretation Comments RDW (test code = RDW) 14.6 11.5-14.5 H [facility] PasoAgjdgxoOQRPNGFNMW0377-73-45 07:19:00 Test Item Value Reference Range Interpretation Comments Platelet (test code = Platelet) 215 133-450 N [facility] PasoSqjvztuKEVCNCXDZX2014-07-34 07:19:00 Test Item Value Reference Range Interpretation Comments MPV (test code = MPV) 10.0 7.4-10.4 N [facility] PasoPdjktjcETSCUJWIIA2367-30-14 07:19:00 Test Item Value Reference Range Interpretation Comments RBC (test code = RBC) 4.60 4.20-5.40 N [facility] PasoTbtjpxtYHHMYANZAA9623-60-81 07:19:00 Test Item Value Reference Range Interpretation Comments WBC (test code = WBC) 13.0 3.7-10.4 H [facility] HospitalNipbgzjNWPFDJBZZ7790-52-59 07:19:00 Test Item Value Reference Range Interpretation Comments AGAP (test code = AGAP) 14.3 10.0-20.0 N [facility] HospitalHwjcfrjUKIRZAMKM7103-23-66 07:19:00 Test Item Value Reference Range Interpretation Comments eGFR (test code = eGFR) 75 [facility] HospitalMvlwnepWDFFZIGJX7774-95-54 07:19:00 Test Item Value Reference Range Interpretation Comments Sodium Lvl (test code = Sodium Lvl) 139 135-145 N [facility] HospitalPmrekexLJIZUBQIA3151-54-49 07:19:00 Test Item Value Reference Range Interpretation Comments Chloride Lvl (test code = Chloride Lvl) 104 95-109 N [facility] HospitalFxabmjtQLDBSDCKQ6457-49-35 07:19:00 Test Item Value Reference Range Interpretation Comments CO2 (test code = CO2) 25 24-32 N [facility] HospitalCljmxelTHDEMCFZZ5584-25-60 07:19:00 Test Item Value Reference Range Interpretation Comments Calcium Lvl (test code = Calcium Lvl) 10.7 8.5-10.5 H [facility] HospitalShrncyqBJOBCQDAP7637-67-75 07:19:00 Test Item Value Reference Range Interpretation Comments Potassium Lvl (test code = Potassium 4.3 3.5-5.1 N Lvl) [facility] HospitalIfxkhebMEBQMQPVL1022-62-23 07:19:00 Test Item Value Reference Range Interpretation Comments Glucose Lvl (test code = Glucose Lvl) 262 70-99 H [facility] HospitalHkzduwxDSVFPQJSE4941-19-13 07:19:00 Test Item Value Reference Range Interpretation Comments Creatinine Lvl (test code = Creatinine 0.8 0.5-1.4 N Lvl) [facility] HospitalQxbzxzrZTJWNWRBW7815-78-84 07:19:00 Test Item Value Reference Range Interpretation Comments BUN (test code = BUN) 20 7-22 N [facility] PasoJlhnflnTHUYUOWTSC1724-67-51 07:19:00 Test Item Value Reference Range Interpretation Comments Hgb (test code = Hgb) 14.0 12.0-16.0 N [facility] PasoUqyfypzZYUJHVUFYV2845-53-69 07:19:00 Test Item Value Reference Range Interpretation Comments Hct (test code = Hct) 42.5 36.0-48.0 N [facility] PasoLcibkhkIFSOMXILOC2895-20-19 07:19:00 Test Item Value Reference Range Interpretation Comments MCV (test code = MCV) 92.3 81.0-99.0 N [facility] PasoBsxxzyrPTMKMDIWFI9477-76-41 07:19:00 Test Item Value Reference Range Interpretation Comments MCH (test code = MCH) 30.5 pg 27.0-31.0 N [facility] PasoNxmzxdvCYABARNWRQ4469-27-94 07:19:00 Test Item Value Reference Range Interpretation Comments MCHC (test code = MCHC) 33.0 32.0-36.0 N [facility] PasoCnxwqxzAXEAANHKJH0246-20-62 07:19:00 Test Item Value Reference Range Interpretation Comments RDW (test code = RDW) 14.6 11.5-14.5 H [facility] PasoWyrijsaGVIWGPHNPC1172-17-31 07:19:00 Test Item Value Reference Range Interpretation Comments Platelet (test code = Platelet) 215 133-450 N [facility] PasoOaqeeslEUGTWXCHVC6279-89-39 07:19:00 Test Item Value Reference Range Interpretation Comments MPV (test code = MPV) 10.0 7.4-10.4 N [facility] PasoCgmxukjWIXDRIDFAI9356-51-07 07:19:00 Test Item Value Reference Range Interpretation Comments RBC (test code = RBC) 4.60 4.20-5.40 N [facility] PasoVhidjdrZQPHUSDUPU4424-92-58 07:19:00 Test Item Value Reference Range Interpretation Comments WBC (test code = WBC) 13.0 3.7-10.4 H [facility] HospitalIwmdpzpDJGVTPXYX0125-49-07 07:19:00 Test Item Value Reference Range Interpretation Comments AGAP (test code = AGAP) 14.3 10.0-20.0 N [facility] HospitalIuoqomkPTBQFQLJH0339-40-23 07:19:00 Test Item Value Reference Range Interpretation Comments eGFR (test code = eGFR) 75 [facility] HospitalOfqyxgwPTJDECVJM0031-64-63 07:19:00 Test Item Value Reference Range Interpretation Comments Sodium Lvl (test code = Sodium Lvl) 139 135-145 N [facility] HospitalUypghhsHQOLMUTFS8548-78-09 07:19:00 Test Item Value Reference Range Interpretation Comments Chloride Lvl (test code = Chloride Lvl) 104 95-109 N [facility] HospitalGumpxaiUJMQXKOUP5159-09-49 07:19:00 Test Item Value Reference Range Interpretation Comments CO2 (test code = CO2) 25 24-32 N [facility] HospitalXlqhjbcRFULONSJO9487-72-92 07:19:00 Test Item Value Reference Range Interpretation Comments Calcium Lvl (test code = Calcium Lvl) 10.7 8.5-10.5 H [facility] HospitalAadoxztNVZMKGVCF5698-23-20 07:19:00 Test Item Value Reference Range Interpretation Comments Potassium Lvl (test code = Potassium 4.3 3.5-5.1 N Lvl) [facility] HospitalMmpojebQDPJOHGTY3224-25-46 07:19:00 Test Item Value Reference Range Interpretation Comments Glucose Lvl (test code = Glucose Lvl) 262 70-99 H [facility] HospitalNcjoctnWNLFMBUOS5011-55-10 07:19:00 Test Item Value Reference Range Interpretation Comments Creatinine Lvl (test code = Creatinine 0.8 0.5-1.4 N Lvl) [facility] HospitalXhowegnRICANBMZZ1822-75-78 07:19:00 Test Item Value Reference Range Interpretation Comments BUN (test code = BUN) 20 7-22 N [facility] PasoKtkvjloHGHOKRPHIO4960-75-10 07:19:00 Test Item Value Reference Range Interpretation Comments Hgb (test code = Hgb) 14.0 12.0-16.0 N [facility] PasoRzuwlyvANGFLHNFKN6642-32-27 07:19:00 Test Item Value Reference Range Interpretation Comments Hct (test code = Hct) 42.5 36.0-48.0 N [facility] PasoZwvejpwZWUJIERXOU9655-82-14 07:19:00 Test Item Value Reference Range Interpretation Comments MCV (test code = MCV) 92.3 81.0-99.0 N [facility] PasoFaxywbjZFFDBZIDCI8508-11-18 07:19:00 Test Item Value Reference Range Interpretation Comments MCH (test code = MCH) 30.5 pg 27.0-31.0 N [facility] PasoBosimrhOTNUJRBTWJ7614-54-79 07:19:00 Test Item Value Reference Range Interpretation Comments MCHC (test code = MCHC) 33.0 32.0-36.0 N [facility] PasoEjnnvavLJRKSIVWEI2202-52-07 07:19:00 Test Item Value Reference Range Interpretation Comments RDW (test code = RDW) 14.6 11.5-14.5 H [facility] PasoBvupqjaBIPGJFXPSI0703-92-40 07:19:00 Test Item Value Reference Range Interpretation Comments Platelet (test code = Platelet) 215 133-450 N [facility] PasoRjnvcmgYDPYXVESDI0438-76-77 07:19:00 Test Item Value Reference Range Interpretation Comments MPV (test code = MPV) 10.0 7.4-10.4 N [facility] PasoQsulcduOLXIKTIMKW6157-80-13 07:19:00 Test Item Value Reference Range Interpretation Comments RBC (test code = RBC) 4.60 4.20-5.40 N [facility] PasoEoirpnfHLXIBIEKNA2518-78-42 07:19:00 Test Item Value Reference Range Interpretation Comments WBC (test code = WBC) 13.0 3.7-10.4 H [facility] HospitalAxwerdgTNEKJDOAH7324-31-66 07:19:00 Test Item Value Reference Range Interpretation Comments AGAP (test code = AGAP) 14.3 10.0-20.0 N [facility] HospitalEyuncnfGQQHZLEWB2099-39-51 07:19:00 Test Item Value Reference Range Interpretation Comments eGFR (test code = eGFR) 75 [facility] HospitalNeohlqxZIFUMSGLS5385-77-09 07:19:00 Test Item Value Reference Range Interpretation Comments Sodium Lvl (test code = Sodium Lvl) 139 135-145 N [facility] HospitalUecnawnAEOPSKVRY2054-41-17 07:19:00 Test Item Value Reference Range Interpretation Comments Chloride Lvl (test code = Chloride Lvl) 104 95-109 N [facility] HospitalCbahqlmBMCRGGOZV4047-66-14 07:19:00 Test Item Value Reference Range Interpretation Comments CO2 (test code = CO2) 25 24-32 N [facility] HospitalZrgajdzYOHQMVJUS0992-34-24 07:19:00 Test Item Value Reference Range Interpretation Comments Calcium Lvl (test code = Calcium Lvl) 10.7 8.5-10.5 H [facility] HospitalWwqkpfjQROGYTOJR8287-43-49 07:19:00 Test Item Value Reference Range Interpretation Comments Potassium Lvl (test code = Potassium 4.3 3.5-5.1 N Lvl) [facility] HospitalKrezehzBUJZZXCQW0188-15-15 07:19:00 Test Item Value Reference Range Interpretation Comments Glucose Lvl (test code = Glucose Lvl) 262 70-99 H [facility] HospitalXgogknvMHGUXLMUR2816-65-55 07:19:00 Test Item Value Reference Range Interpretation Comments Creatinine Lvl (test code = Creatinine 0.8 0.5-1.4 N Lvl) [facility] HospitalBpsqufeRCQBIDTBO6024-47-31 07:19:00 Test Item Value Reference Range Interpretation Comments BUN (test code = BUN) 20 7-22 N [facility] PasoMlbemthCOKMUXEUWQ3080-68-24 07:19:00 Test Item Value Reference Range Interpretation Comments Hgb (test code = Hgb) 14.0 12.0-16.0 N [facility] PasoFzxxjhtLKWTFBIYTP9096-26-24 07:19:00 Test Item Value Reference Range Interpretation Comments Hct (test code = Hct) 42.5 36.0-48.0 N [facility] PasoMorstutVYYJCDFRXG2894-84-19 07:19:00 Test Item Value Reference Range Interpretation Comments MCV (test code = MCV) 92.3 81.0-99.0 N [facility] PasoSzjreloPWREQKFNAU0228-64-13 07:19:00 Test Item Value Reference Range Interpretation Comments MCH (test code = MCH) 30.5 pg 27.0-31.0 N [facility] PasoYicaklgSUVFADSGEK2957-19-37 07:19:00 Test Item Value Reference Range Interpretation Comments MCHC (test code = MCHC) 33.0 32.0-36.0 N [facility] PasoSrthfffRRYEPBWYBH0386-41-84 07:19:00 Test Item Value Reference Range Interpretation Comments RDW (test code = RDW) 14.6 11.5-14.5 H [facility] PasoQwttxrjWTZAKLPXBA0650-73-12 07:19:00 Test Item Value Reference Range Interpretation Comments Platelet (test code = Platelet) 215 133-450 N [facility] PasoOcbdnurMOKPPHMGDQ1504-51-31 07:19:00 Test Item Value Reference Range Interpretation Comments MPV (test code = MPV) 10.0 7.4-10.4 N [facility] PasoEvvzqnyJHPBKTVZXC9163-92-13 07:19:00 Test Item Value Reference Range Interpretation Comments RBC (test code = RBC) 4.60 4.20-5.40 N [facility] PasoPhwbdhcTGHJCCPUCE8480-56-69 07:19:00 Test Item Value Reference Range Interpretation Comments WBC (test code = WBC) 13.0 3.7-10.4 H [facility] GLUCOSE NOMQOFO8872-80-70 04:41:00 Test Item Value Reference Range Interpretation Comments Comment1 (test code = Comment1) Notify RN/MD [facility] GLUCOSE YCRQDJP6307-30-39 04:41:00 Test Item Value Reference Range Interpretation Comments Gluc POC [facility] (test code = Gluc POC 244 70-99 H [facility]) [facility] GLUCOSE CENKXDL2058-76-30 04:41:00 Test Item Value Reference Range Interpretation Comments Comment1 (test code = Comment1) Notify RN/ [facility] [facility] GLUCOSE [id number] 04:41:00 Test Item Value Reference Range Interpretation Comments Gluc POC Lifscn (test code = Gluc POC 244 70-99 H Lifscn) [facility] GLUCOSE [id number] 04:41:00 Test Item Value Reference Range Interpretation Comments Comment1 (test code = Comment1) Notify RN/ [facility] GLUCOSE [id number] 04:41:00 Test Item Value Reference Range Interpretation Comments Gluc POC Lifscn (test code = Gluc POC 244 70-99 H Lifscn) [facility] GLUCOSE [id number] 04:41:00 Test Item Value Reference Range Interpretation Comments Comment1 (test code = Comment1) Notify JENNIE/ [facility] GLUCOSE [id number] 04:41:00 Test Item Value Reference Range Interpretation Comments Gluc POC Lifscn (test code = Gluc POC 244 70-99 H Lifscn) [facility] GLUCOSE [id number] 04:41:00 Test Item Value Reference Range Interpretation Comments Comment1 (test code = Comment1) Notify RN/ [facility] GLUCOSE [id number] 04:41:00 Test Item Value Reference Range Interpretation Comments Gluc POC Lifscn (test code = Gluc POC 244 70-99 H Lifscn) [facility] GLUCOSE [id number] 04:41:00 Test Item Value Reference Range Interpretation Comments Comment1 (test code = Comment1) Notify RN/ [facility] GLUCOSE [id number] 04:41:00 Test Item Value Reference Range Interpretation Comments Gluc POC Lifscn (test code = Gluc POC 244 70-99 H Lifscn) [facility] GLUCOSE [id number] 04:41:00 Test Item Value Reference Range Interpretation Comments Comment1 (test code = Comment1) Notify RN/ [facility] GLUCOSE [id number] 04:41:00 Test Item Value Reference Range Interpretation Comments Comment1 (test code = Comment1) Notify RN/ [facility] GLUCOSE [id number] 04:41:00 Test Item Value Reference Range Interpretation Comments Gluc POC Lifscn (test code = Gluc POC 244 70-99 H Lifscn) [facility] GLUCOSE [id number] 04:41:00 Test Item Value Reference Range Interpretation Comments Gluc POC Lifscn (test code = Gluc POC 244 70-99 H Lifscn) [facility] GLUCOSE [id number] 04:41:00 Test Item Value Reference Range Interpretation Comments Comment1 (test code = Comment1) Notify RN/ [facility] GLUCOSE [id number] 04:41:00 Test Item Value Reference Range Interpretation Comments Gluc POC Lifscn (test code = Gluc POC 244 70-99 H Lifscn) [facility] GLUCOSE [id number] 04:41:00 Test Item Value Reference Range Interpretation Comments Comment1 (test code = Comment1) Notify RN/ [facility] GLUCOSE [id number] 04:41:00 Test Item Value Reference Range Interpretation Comments Gluc POC Lifscn (test code = Gluc POC 244 70-99 H Lifscn) [facility] GLUCOSE [id number] 04:41:00 Test Item Value Reference Range Interpretation Comments Comment1 (test code = Comment1) Notify RN/ [facility] GLUCOSE [id number] 04:41:00 Test Item Value Reference Range Interpretation Comments Gluc POC Lifscn (test code = Gluc POC 244 70-99 H Lifscn) [facility] GLUCOSE [id number] 04:41:00 Test Item Value Reference Range Interpretation Comments Comment1 (test code = Comment1) Notify RN/ [facility] GLUCOSE [id number] 04:41:00 Test Item Value Reference Range Interpretation Comments Gluc POC Lifscn (test code = Gluc POC 244 70-99 H Lifscn) [facility] GLUCOSE [id number] 04:41:00 Test Item Value Reference Range Interpretation Comments Comment1 (test code = Comment1) Notify RN/ [facility] GLUCOSE [id number] 04:41:00 Test Item Value Reference Range Interpretation Comments Gluc POC Lifscn (test code = Gluc POC 244 70-99 H Lifscn) [facility] GLUCOSE [id number] 04:41:00 Test Item Value Reference Range Interpretation Comments Comment1 (test code = Comment1) Notify RN/ [facility] GLUCOSE [id number] 04:41:00 Test Item Value Reference Range Interpretation Comments Gluc POC Lifscn (test code = Gluc POC 244 70-99 H Lifscn) [facility] GLUCOSE [id number] 04:41:00 Test Item Value Reference Range Interpretation Comments Comment1 (test code = Comment1) Notify RN/ [facility] GLUCOSE [id number] 04:41:00 Test Item Value Reference Range Interpretation Comments Gluc POC Lifscn (test code = Gluc POC 244 70-99 H Lifscn) [facility] GLUCOSE [id number] 04:41:00 Test Item Value Reference Range Interpretation Comments Comment1 (test code = Comment1) Notify RN/ [facility] GLUCOSE [id number] 04:41:00 Test Item Value Reference Range Interpretation Comments Gluc POC Lifscn (test code = Gluc POC 244 70-99 H Lifscn) [facility] GLUCOSE [id number] 04:41:00 Test Item Value Reference Range Interpretation Comments Comment1 (test code = Comment1) Notify RN/ [facility] GLUCOSE [id number] 04:41:00 Test Item Value Reference Range Interpretation Comments Gluc POC Lifscn (test code = Gluc POC 244 70-99 H Lifscn) [facility] GLUCOSE [id number] 04:41:00 Test Item Value Reference Range Interpretation Comments Comment1 (test code = Comment1) Notify RN/ [facility] GLUCOSE [id number] 04:41:00 Test Item Value Reference Range Interpretation Comments Gluc POC Lifscn (test code = Gluc POC 244 70-99 H Lifscn) [facility] GLUCOSE [id number] 04:41:00 Test Item Value Reference Range Interpretation Comments Comment1 (test code = Comment1) Notify RN/ [facility] GLUCOSE [id number] 04:41:00 Test Item Value Reference Range Interpretation Comments Gluc POC Lifscn (test code = Gluc POC 244 70-99 H Lifscn) [facility]ZM7438[facility]-75 07:50:32 Test Item Value Reference Range Interpretation Comments Magnesium Lvl (test code = Magnesium 2.0 1.8-2.4 N Lvl) [facility]UaqbetiSKIWBMLOA9116-96-74 07:50:32 Test Item Value Reference Range Interpretation Comments Magnesium Lvl (test code = Magnesium 2.0 1.8-2.4 N Lvl) [facility] HospitalMllqgvgINFUQZWOP6618-10-66 07:50:32 Test Item Value Reference Range Interpretation Comments Magnesium Lvl (test code = Magnesium 2.0 1.8-2.4 N Lvl) [facility] HospitalDxlmtnjFPZMQJLUC5943-28-97 07:50:32 Test Item Value Reference Range Interpretation Comments Magnesium Lvl (test code = Magnesium 2.0 1.8-2.4 N Lvl) [facility] HospitalTgtwosyIBDYETXRP7427-07-33 07:50:32 Test Item Value Reference Range Interpretation Comments Magnesium Lvl (test code = Magnesium 2.0 1.8-2.4 N Lvl) [facility] HospitalJrslbboWQJFYSJCN5437-63-38 07:50:32 Test Item Value Reference Range Interpretation Comments Magnesium Lvl (test code = Magnesium 2.0 1.8-2.4 N Lvl) [facility] HospitalGiwmwisZZEYBOEXV6320-34-41 07:50:32 Test Item Value Reference Range Interpretation Comments Magnesium Lvl (test code = Magnesium 2.0 1.8-2.4 N Lvl) [facility] HospitalHzlmyqmOKJUHXDRD5127-93-39 07:50:32 Test Item Value Reference Range Interpretation Comments Magnesium Lvl (test code = Magnesium 2.0 1.8-2.4 N Lvl) [facility] HospitalWifwasyGMRRBWZNN3707-37-46 07:50:32 Test Item Value Reference Range Interpretation Comments Magnesium Lvl (test code = Magnesium 2.0 1.8-2.4 N Lvl) [facility] HospitalCrbfksdTECVYVJZG4937-18-13 07:50:32 Test Item Value Reference Range Interpretation Comments Magnesium Lvl (test code = Magnesium 2.0 1.8-2.4 N Lvl) [facility] HospitalLvsdxvcOJAMZOUZV3348-48-95 07:50:32 Test Item Value Reference Range Interpretation Comments Magnesium Lvl (test code = Magnesium 2.0 1.8-2.4 N Lvl) [facility] HospitalMavarwcLGIEPZYVA7151-86-93 07:50:32 Test Item Value Reference Range Interpretation Comments Magnesium Lvl (test code = Magnesium 2.0 1.8-2.4 N Lvl) [facility] HospitalKiwrlplTOUSMDKAU6638-01-75 07:50:32 Test Item Value Reference Range Interpretation Comments Magnesium Lvl (test code = Magnesium 2.0 1.8-2.4 N Lvl) [facility] HospitalPhtrrdhNCNLXDFLI2938-16-71 07:50:32 Test Item Value Reference Range Interpretation Comments Magnesium Lvl (test code = Magnesium 2.0 1.8-2.4 N Lvl) [facility] HospitalHoxydorRNVSFYANM9759-93-21 07:50:32 Test Item Value Reference Range Interpretation Comments Magnesium Lvl (test code = Magnesium 2.0 1.8-2.4 N Lvl) [facility] HospitalYzawegmSSEYPFXLM6686-09-74 07:50:32 Test Item Value Reference Range Interpretation Comments Magnesium Lvl (test code = Magnesium 2.0 1.8-2.4 N Lvl) [facility] HospitalWbejwvaZKUNZHKJQ9424-08-59 07:50:32 Test Item Value Reference Range Interpretation Comments Magnesium Lvl (test code = Magnesium 2.0 1.8-2.4 N Lvl) [facility] HospitalRvcpzrqVFQHDIOWC8364-98-92 07:50:32 Test Item Value Reference Range Interpretation Comments Magnesium Lvl (test code = Magnesium 2.0 1.8-2.4 N Lvl) [facility] HospitalPrmapdqNWVDWBLOK6707-55-34 07:50:32 Test Item Value Reference Range Interpretation Comments Magnesium Lvl (test code = Magnesium 2.0 1.8-2.4 N Lvl) [facility]bnh1958-[facility]-32 11:00:00 Test Item Value Reference Range Interpretation Comments Culture: Urine (test code = Culture: Urine) [facility] BrookYdobbzpWdizeyvprkyk9515-45-28 11:00:00 Test Item Value Reference Range Interpretation Comments Culture: Urine (test code = Culture: Urine) [facility] BrookNlyskfmErtvxinuxrtg5331-50-40 11:00:00 Test Item Value Reference Range Interpretation Comments Culture: Urine (test code = Culture: Urine) [facility] BrookNfbcudiZciostmlnttm0936-91-58 11:00:00 Test Item Value Reference Range Interpretation Comments Culture: Urine (test code = Culture: Urine) [facility] BrookAcmimosSvuslsdcizdw3437-98-99 11:00:00 Test Item Value Reference Range Interpretation Comments Culture: Urine (test code = Culture: Urine) [facility] BrookJcocdgkYwwialmcbvdv9019-26-70 11:00:00 Test Item Value Reference Range Interpretation Comments Culture: Urine (test code = Culture: Urine) [facility] BrookHzgyrunJjbqftcsdmga0001-28-07 11:00:00 Test Item Value Reference Range Interpretation Comments Culture: Urine (test code = Culture: Urine) [facility] BrookMcilxbkQakpleuckmkl6556-68-01 11:00:00 Test Item Value Reference Range Interpretation Comments Culture: Urine (test code = Culture: Urine) [facility] BrookPmkjokpAqpbnqcabjkz1365-93-14 11:00:00 Test Item Value Reference Range Interpretation Comments Culture: Urine (test code = Culture: Urine) [facility] BrookDmblcaxOpxbfweokaqi2498-53-07 11:00:00 Test Item Value Reference Range Interpretation Comments Culture: Urine (test code = Culture: Urine) [facility] BrookZrywpjoZlqevpmjcrei9853-70-48 11:00:00 Test Item Value Reference Range Interpretation Comments Culture: Urine (test code = Culture: Urine) [facility] BrookNanxrgzSlipleyyetre5264-73-55 11:00:00 Test Item Value Reference Range Interpretation Comments Culture: Urine (test code = Culture: Urine) [facility] BrookPcffvcdJhtanhncufnn8755-05-30 11:00:00 Test Item Value Reference Range Interpretation Comments Culture: Urine (test code = Culture: Urine) [facility] BrookSwqawpwOmivwkglpbml8520-47-81 11:00:00 Test Item Value Reference Range Interpretation Comments Culture: Urine (test code = Culture: Urine) [facility] BrookLxuegboYebuqxexaxsm6944-24-34 11:00:00 Test Item Value Reference Range Interpretation Comments Culture: Urine (test code = Culture: Urine) [facility] BrookQespdjbZzhrgadjzpvb1421-15-98 11:00:00 Test Item Value Reference Range Interpretation Comments Culture: Urine (test code = Culture: Urine) [facility] BrookNynhokeSutmvpxfaubq7856-84-13 11:00:00 Test Item Value Reference Range Interpretation Comments Culture: Urine (test code = Culture: Urine) [facility] BrookCwwhddhSvjyydwlorwh4868-76-81 11:00:00 Test Item Value Reference Range Interpretation Comments Culture: Urine (test code = Culture: Urine) [facility] BrookHrhakiiCwekqohemxld0929-68-81 11:00:00 Test Item Value Reference Range Interpretation Comments Culture: Urine (test code = Culture: Urine) [facility]villeOljviiyEMRBFMTHLL8777-95-84 06:52:38 Test Item Value Reference Range Interpretation Comments UA Urobilinogen (test code *NA*(10/04/2012 0.1-1.0 = UA Urobilinogen) 01:52:38) [facility]villeLbcyicmQXMBCZIWZA0030-34-00 06:52:38 Test Item Value Reference Range Interpretation Comments UA Color (test code = Yellow *NA*(10/04/2012 UA Color) 01:52:38) [facility] GreenvilleAftfghrPWOFCAIHMQ0869-42-16 06:52:38 Test Item Value Reference Range Interpretation Comments UA Bacteria (test code Occasional /HPF = UA Bacteria) *NA*(10/04/2012 01:52:38) [facility]villeQnzsmuaFDRMUZJIQY0800-67-08 06:52:38 Test Item Value Reference Range Interpretation Comments UA Sq Epi (test code Occasional /LPF = UA Sq Epi) *NA*(10/04/2012 01:52:38) [facility] GreenvilleXraofjbOESVCVQXIR7022-64-82 06:52:38 Test Item Value Reference Range Interpretation Comments UA RBC (test code = 6 See_Comment H [Automa juan message] The UA RBC) system which ge nerated this result transmit juan reference range : <=2. The reference range was not used to interpr et this result as polina l/abnormal. [facility] GreenvillePyznrsbVUOXAQPDEA3989-46-87 06:52:38 Test Item Value Reference Range Interpretation Comments UA Leuk Est (test code Small *ABN*(10/04/2012 A = UA Leuk Est) 01:52:38) [facility] GreenvilleCtmmsnrNQYJVMUWYO5688-39-41 06:52:38 Test Item Value Reference Range Interpretation Comments UA WBC (test code = 12 See_Comment H [Automa juan message] The UA WBC) system which ge nerated this result transmit juan reference range : <=5. The reference range was not used to interpr et this result as polina l/abnormal. [facility] GreenvilleYkwruuvBRIYPGNWOM2205-48-23 06:52:38 Test Item Value Reference Range Interpretation Comments UA Protein (test code = 10 mg/dL A UA Protein) *ABN*(10/04/2012 01:52:38) [facility] GreenvilleHfscdsjJQGVHAMHRC2909-38-85 06:52:38 Test Item Value Reference Range Interpretation Comments UA pH (test code = UA pH) 5.0 5.0-8.0 N [facility]villeSjbjnmcDQTDPZKVQS1814-79-53 06:52:38 Test Item Value Reference Range Interpretation Comments UA Spec Grav (test code = UA Spec Grav) 1.022 N [facility] GreenvilleHwqvlkrXMAGESIUTY7864-61-14 06:52:38 Test Item Value Reference Range Interpretation Comments UA Turbidity (test code Slight A = UA Turbidity) *ABN*(10/04/2012 01:52:38) [facility] GreenvilleNqwvyhkGPSTHPXOKA4914-79-42 06:52:38 Test Item Value Reference Range Interpretation Comments UA Nitrite (test code Negative (10/04/2012 N = UA Nitrite) 01:52:38) [facility] GreenvilleIbqhdglTIQHXBYROR4960-01-37 06:52:38 Test Item Value Reference Range Interpretation Comments UA Blood (test code = Small *ABN*(10/04/2012 A UA Blood) 01:52:38) [facility] GreenvilleNqqyyszPOAUTEBFFW0881-90-51 06:52:38 Test Item Value Reference Range Interpretation Comments UA Bili (test code = Negative *NA*(10/04/2012 UA Bili) 01:52:38) [facility] GreenvilleGrxywzmDGIRMBMCNJ1679-76-06 06:52:38 Test Item Value Reference Range Interpretation Comments UA Ketones (test code Negative mg/dL = UA Ketones) *NA*(10/04/2012 01:52:38) [facility] GreenvilleFqhhxtsTLCLWYCTJK9672-30-86 06:52:38 Test Item Value Reference Range Interpretation Comments UA Glucose (test code = 30 mg/dL A UA Glucose) *ABN*(10/04/2012 01:52:38) [facility]villeWeclxjmITMVPVLMZX3846-01-92 06:52:38 Test Item Value Reference Range Interpretation Comments UA Urobilinogen (test code *NA*(10/04/2012 0.1-1.0 = UA Urobilinogen) 01:52:38) [facility] GreenvilleLprayicLENGTPNJEH1140-25-63 06:52:38 Test Item Value Reference Range Interpretation Comments UA Color (test code = Yellow *NA*(10/04/2012 UA Color) 01:52:38) [facility] GreenvilleMzqyzmqQRJLVFAXZL1006-35-52 06:52:38 Test Item Value Reference Range Interpretation Comments UA Bacteria (test code Occasional /HPF = UA Bacteria) *NA*(10/04/2012 01:52:38) [facility]czumovDNVUKAHRJN7689-58-32 06:52:38 Test Item Value Reference Range Interpretation Comments UA Sq Epi (test code Occasional /LPF = UA Sq Epi) *NA*(10/04/2012 01:52:38) [facility]UafswnqRGAJHYLCMM2171-44-25 06:52:38 Test Item Value Reference Range Interpretation Comments UA RBC (test code = 6 See_Comment H [Automa juan message] The UA RBC) system which ge nerated this result transmit juan reference range : <=2. The reference range was not used to interpr et this result as polina l/abnormal. [facility]FxtcueoMBMEOXWESO3020-99-00 06:52:38 Test Item Value Reference Range Interpretation Comments UA Leuk Est (test code Small *ABN*(10/04/2012 A = UA Leuk Est) 01:52:38) [facility]VoqexaaKFOJEZUNBB2652-94-73 06:52:38 Test Item Value Reference Range Interpretation Comments UA WBC (test code = 12 See_Comment H [Automa juan message] The UA WBC) system which ge nerated this result transmit juan reference range : <=5. The reference range was not used to interpr et this result as polina l/abnormal. [facility]HealthUzlomnhTYGBOZQVGE6153-99-90 06:52:38 Test Item Value Reference Range Interpretation Comments UA Protein (test code = 10 mg/dL A UA Protein) *ABN*(10/04/2012 01:52:38) [facility]AvmlahgOPCGHONYJD7207-90-31 06:52:38 Test Item Value Reference Range Interpretation Comments UA pH (test code = UA pH) 5.0 5.0-8.0 N [facility]HealthCdtctutBNTSYSSREZ0046-80-45 06:52:38 Test Item Value Reference Range Interpretation Comments UA Spec Grav (test code = UA Spec Grav) 1.022 N [facility]HealthMkhieguJWHKUDOPIG8229-40-32 06:52:38 Test Item Value Reference Range Interpretation Comments UA Turbidity (test code Slight A = UA Turbidity) *ABN*(10/04/2012 01:52:38) [facility] GreenvilleFitsowuILXKPZEGLU9369-48-52 06:52:38 Test Item Value Reference Range Interpretation Comments UA Nitrite (test code Negative (10/04/2012 N = UA Nitrite) 01:52:38) [facility] GreenvilleBcrrcumGKUXCKVTEK9386-41-12 06:52:38 Test Item Value Reference Range Interpretation Comments UA Blood (test code = Small *ABN*(10/04/2012 A UA Blood) 01:52:38) [facility] GreenvilleBzefvqnUKXYPHNJZU9664-34-17 06:52:38 Test Item Value Reference Range Interpretation Comments UA Bili (test code = Negative *NA*(10/04/2012 UA Bili) 01:52:38) [facility] GreenvilleYsqzgixIQLRAACIZF8419-63-57 06:52:38 Test Item Value Reference Range Interpretation Comments UA Ketones (test code Negative mg/dL = UA Ketones) *NA*(10/04/2012 01:52:38) [facility] GreenvilleAmjahzdUDGSJOWBNR1882-31-25 06:52:38 Test Item Value Reference Range Interpretation Comments UA Glucose (test code = 30 mg/dL A UA Glucose) *ABN*(10/04/2012 01:52:38) [facility] GreenvilleQrlwjgdPWFBWEHWZZ5927-25-31 06:52:38 Test Item Value Reference Range Interpretation Comments UA Urobilinogen (test code *NA*(10/04/2012 0.1-1.0 = UA Urobilinogen) 01:52:38) [facility] GreenvilleTktifpdXIDETIBEJY6439-91-87 06:52:38 Test Item Value Reference Range Interpretation Comments UA Color (test code = Yellow *NA*(10/04/2012 UA Color) 01:52:38) [facility]villeIbgwrzvRJQFJCZKKS8618-08-84 06:52:38 Test Item Value Reference Range Interpretation Comments UA Bacteria (test code Occasional /HPF = UA Bacteria) *NA*(10/04/2012 01:52:38) [facility]villeEnhslubTMDGHBYVYW4577-05-51 06:52:38 Test Item Value Reference Range Interpretation Comments UA Sq Epi (test code Occasional /LPF = UA Sq Epi) *NA*(10/04/2012 01:52:38) [facility] GreenvilleSxibvcuRCAGUVEFSE6936-05-72 06:52:38 Test Item Value Reference Range Interpretation Comments UA RBC (test code = 6 See_Comment H [Automa juan message] The UA RBC) system which ge nerated this result transmit juan reference range : <=2. The reference range was not used to interpr et this result as polina l/abnormal. [facility]MuofwkrDOYFZPLZVE2915-53-31 06:52:38 Test Item Value Reference Range Interpretation Comments UA Leuk Est (test code Small *ABN*(10/04/2012 A = UA Leuk Est) 01:52:38) [facility]CgoppiuWLLUOTAYTS6008-34-30 06:52:38 Test Item Value Reference Range Interpretation Comments UA WBC (test code = 12 See_Comment H [Automa juan message] The UA WBC) system which ge nerated this result transmit juan reference range : <=5. The reference range was not used to interpr et this result as polina l/abnormal. [facility]HealthOzoccnqVWXVHHJCPQ6047-74-62 06:52:38 Test Item Value Reference Range Interpretation Comments UA Protein (test code = 10 mg/dL A UA Protein) *ABN*(10/04/2012 01:52:38) [facility]PvoimnwJTJSQLURPY1060-92-19 06:52:38 Test Item Value Reference Range Interpretation Comments UA pH (test code = UA pH) 5.0 5.0-8.0 N [facility]HealthDnqkrqsIJHGQIZZPN4372-21-82 06:52:38 Test Item Value Reference Range Interpretation Comments UA Spec Grav (test code = UA Spec Grav) 1.022 N [facility]HealthDknnkctBBQYUWMZUE7351-38-33 06:52:38 Test Item Value Reference Range Interpretation Comments UA Turbidity (test code Slight A = UA Turbidity) *ABN*(10/04/2012 01:52:38) [facility]KgatxdwOUXEBKNOLK4178-92-57 06:52:38 Test Item Value Reference Range Interpretation Comments UA Nitrite (test code Negative (10/04/2012 N = UA Nitrite) 01:52:38) [facility]OdrjcitEOVCIUMZDA1702-38-65 06:52:38 Test Item Value Reference Range Interpretation Comments UA Blood (test code = Small *ABN*(10/04/2012 A UA Blood) 01:52:38) [facility]EhuzkdvAMZYJTVLFK5862-82-06 06:52:38 Test Item Value Reference Range Interpretation Comments UA Bili (test code = Negative *NA*(10/04/2012 UA Bili) 01:52:38) [facility] GreenvilleSryldeyRDLVYJSDBC3893-64-36 06:52:38 Test Item Value Reference Range Interpretation Comments UA Ketones (test code Negative mg/dL = UA Ketones) *NA*(10/04/2012 01:52:38) [facility] GreenvilleMlcahanXAQBVFVRHW7783-11-08 06:52:38 Test Item Value Reference Range Interpretation Comments UA Glucose (test code = 30 mg/dL A UA Glucose) *ABN*(10/04/2012 01:52:38) [facility]villeKbvyewnCDNLLFCZSL0241-87-67 06:52:38 Test Item Value Reference Range Interpretation Comments UA Urobilinogen (test code *NA*(10/04/2012 0.1-1.0 = UA Urobilinogen) 01:52:38) [facility] GreenvilleVsmwjyeBGVNEADSOW6714-65-51 06:52:38 Test Item Value Reference Range Interpretation Comments UA Color (test code = Yellow *NA*(10/04/2012 UA Color) 01:52:38) [facility] GreenvilleTdnfhasPKUHGLZVZJ7467-65-55 06:52:38 Test Item Value Reference Range Interpretation Comments UA Bacteria (test code Occasional /HPF = UA Bacteria) *NA*(10/04/2012 01:52:38) [facility] GreenvilleWumotsoWDNQFOCRRV4831-64-73 06:52:38 Test Item Value Reference Range Interpretation Comments UA Sq Epi (test code Occasional /LPF = UA Sq Epi) *NA*(10/04/2012 01:52:38) [facility]villePcwcuwiDMQDSSGQCZ3716-41-94 06:52:38 Test Item Value Reference Range Interpretation Comments UA RBC (test code = 6 See_Comment H [Automa juan message] The UA RBC) system which ge nerated this result transmit juan reference range : <=2. The reference range was not used to interpr et this result as polina l/abnormal. [facility] GreenvilleXedtewrRMLUKRWCUB9554-21-86 06:52:38 Test Item Value Reference Range Interpretation Comments UA Leuk Est (test code Small *ABN*(10/04/2012 A = UA Leuk Est) 01:52:38) [facility]villeDgfghhdJBFUDYUFOL3672-71-18 06:52:38 Test Item Value Reference Range Interpretation Comments UA WBC (test code = 12 See_Comment H [Automa juan message] The UA WBC) system which ge nerated this result transmit juan reference range : <=5. The reference range was not used to interpr et this result as polina l/abnormal. [facility]villeOvgvvcnOIDYSKBEYV1492-08-67 06:52:38 Test Item Value Reference Range Interpretation Comments UA Protein (test code = 10 mg/dL A UA Protein) *ABN*(10/04/2012 01:52:38) [facility]villeUquoozkLAHKLFBBGT3300-33-96 06:52:38 Test Item Value Reference Range Interpretation Comments UA pH (test code = UA pH) 5.0 5.0-8.0 N [facility]villeDwzwflpFYGLPMTSDF9657-88-52 06:52:38 Test Item Value Reference Range Interpretation Comments UA Spec Grav (test code = UA Spec Grav) 1.022 N [facility]villeXceslzcRDMRJXPPXB5198-07-45 06:52:38 Test Item Value Reference Range Interpretation Comments UA Turbidity (test code Slight A = UA Turbidity) *ABN*(10/04/2012 01:52:38) [facility]villeSozghhrSAUREWKXSV8885-68-56 06:52:38 Test Item Value Reference Range Interpretation Comments UA Nitrite (test code Negative (10/04/2012 N = UA Nitrite) 01:52:38) [facility]villeXlohvomJKPWMLDPVD9603-81-30 06:52:38 Test Item Value Reference Range Interpretation Comments UA Blood (test code = Small *ABN*(10/04/2012 A UA Blood) 01:52:38) [facility]villeVmtekwfVCEIYFZBYU3123-12-47 06:52:38 Test Item Value Reference Range Interpretation Comments UA Bili (test code = Negative *NA*(10/04/2012 UA Bili) 01:52:38) [facility]villeDgtnbjjHPPMXRLNKQ2104-15-85 06:52:38 Test Item Value Reference Range Interpretation Comments UA Ketones (test code Negative mg/dL = UA Ketones) *NA*(10/04/2012 01:52:38) [facility]villeLnystyvFUFAFMMJFZ6762-11-97 06:52:38 Test Item Value Reference Range Interpretation Comments UA Glucose (test code = 30 mg/dL A UA Glucose) *ABN*(10/04/2012 01:52:38) [facility]GvzyeqpZATPARQLEY5388-51-44 06:52:38 Test Item Value Reference Range Interpretation Comments UA Urobilinogen (test code *NA*(10/04/2012 0.1-1.0 = UA Urobilinogen) 01:52:38) [facility]AprltgoVRRWPMTMIE2722-59-79 06:52:38 Test Item Value Reference Range Interpretation Comments UA Color (test code = Yellow *NA*(10/04/2012 UA Color) 01:52:38) [facility]CjbgladWIZPRYGDFB4975-09-42 06:52:38 Test Item Value Reference Range Interpretation Comments UA Bacteria (test code Occasional /HPF = UA Bacteria) *NA*(10/04/2012 01:52:38) [facility]EeokvysYSLEEEEPPH3762-11-62 06:52:38 Test Item Value Reference Range Interpretation Comments UA Sq Epi (test code Occasional /LPF = UA Sq Epi) *NA*(10/04/2012 01:52:38) [facility]villeCaitltlDCETYGCNIS0611-00-12 06:52:38 Test Item Value Reference Range Interpretation Comments UA RBC (test code = 6 See_Comment H [Automa juan message] The UA RBC) system which ge nerated this result transmit juan reference range : <=2. The reference range was not used to interpr et this result as polina l/abnormal. [facility]KrdxwqoDEIMKPSTJC7639-14-47 06:52:38 Test Item Value Reference Range Interpretation Comments UA Leuk Est (test code Small *ABN*(10/04/2012 A = UA Leuk Est) 01:52:38) [facility]WjmdvxvBLRFUCTTHI8348-41-90 06:52:38 Test Item Value Reference Range Interpretation Comments UA WBC (test code = 12 See_Comment H [Automa juan message] The UA WBC) system which ge nerated this result transmit juan reference range : <=5. The reference range was not used to interpr et this result as polina l/abnormal. [facility]FcdlxaaBLANEZHMPH2222-54-30 06:52:38 Test Item Value Reference Range Interpretation Comments UA Protein (test code = 10 mg/dL A UA Protein) *ABN*(10/04/2012 01:52:38) [facility]UcuqrikLYFZVXTZWU4240-86-66 06:52:38 Test Item Value Reference Range Interpretation Comments UA pH (test code = UA pH) 5.0 5.0-8.0 N [facility]villeAownqrrIRLZFPIWNW1039-66-98 06:52:38 Test Item Value Reference Range Interpretation Comments UA Spec Grav (test code = UA Spec Grav) 1.022 N [facility]villeXlpqcqhOYRNQVYVFQ3816-04-96 06:52:38 Test Item Value Reference Range Interpretation Comments UA Turbidity (test code Slight A = UA Turbidity) *ABN*(10/04/2012 01:52:38) [facility]villeQglmcyaEDQALQXTXJ7109-27-47 06:52:38 Test Item Value Reference Range Interpretation Comments UA Nitrite (test code Negative (10/04/2012 N = UA Nitrite) 01:52:38) [facility] GreenvilleYfnzcieKSASSUPBXO6509-01-04 06:52:38 Test Item Value Reference Range Interpretation Comments UA Blood (test code = Small *ABN*(10/04/2012 A UA Blood) 01:52:38) [facility]villeBaivxmfLMBZGXVOGL9562-28-88 06:52:38 Test Item Value Reference Range Interpretation Comments UA Bili (test code = Negative *NA*(10/04/2012 UA Bili) 01:52:38) [facility]villePpqvnvmGMIDXGLGRP5922-55-50 06:52:38 Test Item Value Reference Range Interpretation Comments UA Ketones (test code Negative mg/dL = UA Ketones) *NA*(10/04/2012 01:52:38) [facility]villeQggdclwZATYMWNVYI0105-40-20 06:52:38 Test Item Value Reference Range Interpretation Comments UA Glucose (test code = 30 mg/dL A UA Glucose) *ABN*(10/04/2012 01:52:38) [facility]villeTbznusmHCDJZSWZDY5600-11-86 06:52:38 Test Item Value Reference Range Interpretation Comments UA Urobilinogen (test code *NA*(10/04/2012 0.1-1.0 = UA Urobilinogen) 01:52:38) [facility]villeTbbgxkrVLYITSIWLK0259-29-01 06:52:38 Test Item Value Reference Range Interpretation Comments UA Color (test code = Yellow *NA*(10/04/2012 UA Color) 01:52:38) [facility]villeWbsixmgEOFSWNRSYH6736-07-79 06:52:38 Test Item Value Reference Range Interpretation Comments UA Bacteria (test code Occasional /HPF = UA Bacteria) *NA*(10/04/2012 01:52:38) [facility]DzsqviaPYZIYLCSHE4419-09-41 06:52:38 Test Item Value Reference Range Interpretation Comments UA Sq Epi (test code Occasional /LPF = UA Sq Epi) *NA*(10/04/2012 01:52:38) [facility]QihupfnTFDDJVZPAS9101-75-46 06:52:38 Test Item Value Reference Range Interpretation Comments UA RBC (test code = 6 See_Comment H [Automa juan message] The UA RBC) system which ge nerated this result transmit juan reference range : <=2. The reference range was not used to interpr et this result as polina l/abnormal. [facility]BcujbalBXABLQSVJQ7775-59-24 06:52:38 Test Item Value Reference Range Interpretation Comments UA Leuk Est (test code Small *ABN*(10/04/2012 A = UA Leuk Est) 01:52:38) [facility]GwtotttNTPRPINFNO7093-33-30 06:52:38 Test Item Value Reference Range Interpretation Comments UA WBC (test code = 12 See_Comment H [Automa juan message] The UA WBC) system which ge nerated this result transmit juan reference range : <=5. The reference range was not used to interpr et this result as polina l/abnormal. [facility]InwpproLWOANHELKE7614-66-92 06:52:38 Test Item Value Reference Range Interpretation Comments UA Protein (test code = 10 mg/dL A UA Protein) *ABN*(10/04/2012 01:52:38) [facility]TqxzcegXDHSCBNUBN8649-44-17 06:52:38 Test Item Value Reference Range Interpretation Comments UA pH (test code = UA pH) 5.0 5.0-8.0 N [facility]UnnecmtKYCUUTTNIY0134-26-54 06:52:38 Test Item Value Reference Range Interpretation Comments UA Spec Grav (test code = UA Spec Grav) 1.022 N [facility]FvrwczqNZYTQHMSOO7982-70-47 06:52:38 Test Item Value Reference Range Interpretation Comments UA Turbidity (test code Slight A = UA Turbidity) *ABN*(10/04/2012 01:52:38) [facility]SwwxxqsNMIBGIEDPJ2270-26-51 06:52:38 Test Item Value Reference Range Interpretation Comments UA Nitrite (test code Negative (10/04/2012 N = UA Nitrite) 01:52:38) [facility]TtjiqwoCQQOUJFIIT4380-59-62 06:52:38 Test Item Value Reference Range Interpretation Comments UA Blood (test code = Small *ABN*(10/04/2012 A UA Blood) 01:52:38) [facility]villeDbtbbuxNITZQSEKDG4738-67-08 06:52:38 Test Item Value Reference Range Interpretation Comments UA Bili (test code = Negative *NA*(10/04/2012 UA Bili) 01:52:38) [facility]villeQnbiivoVUAEKAORUW7854-92-28 06:52:38 Test Item Value Reference Range Interpretation Comments UA Ketones (test code Negative mg/dL = UA Ketones) *NA*(10/04/2012 01:52:38) [facility]villeCwjvzodIWEQCBIEBR6437-81-67 06:52:38 Test Item Value Reference Range Interpretation Comments UA Glucose (test code = 30 mg/dL A UA Glucose) *ABN*(10/04/2012 01:52:38) [facility]villeHkdazebOOCVDGVTKX0263-99-19 06:52:38 Test Item Value Reference Range Interpretation Comments UA Urobilinogen (test code *NA*(10/04/2012 0.1-1.0 = UA Urobilinogen) 01:52:38) [facility] GreenvilleGlzyuunKZAEJOOFDQ0662-84-18 06:52:38 Test Item Value Reference Range Interpretation Comments UA Color (test code = Yellow *NA*(10/04/2012 UA Color) 01:52:38) [facility]villeBrnujxzPZIKLVEYIL3388-62-11 06:52:38 Test Item Value Reference Range Interpretation Comments UA Bacteria (test code Occasional /HPF = UA Bacteria) *NA*(10/04/2012 01:52:38) [facility]villeTjkfjbkGRNFTWSZJZ2394-87-99 06:52:38 Test Item Value Reference Range Interpretation Comments UA Sq Epi (test code Occasional /LPF = UA Sq Epi) *NA*(10/04/2012 01:52:38) [facility]villeQphvkzaTINPTUPURG5757-95-72 06:52:38 Test Item Value Reference Range Interpretation Comments UA RBC (test code = UA RBC) 6 <=2 H [facility]YtzxekbKDDAXJFMHQ3194-86-46 06:52:38 Test Item Value Reference Range Interpretation Comments UA Leuk Est (test code Small *ABN*(10/04/2012 A = UA Leuk Est) 01:52:38) [facility]villeXmrswljJFKFYQIIDX4374-11-83 06:52:38 Test Item Value Reference Range Interpretation Comments UA WBC (test code = UA WBC) 12 <=5 H [facility] GreenvilleZcoawbxYIPKTCWODX1001-17-61 06:52:38 Test Item Value Reference Range Interpretation Comments UA Protein (test code = 10 mg/dL A UA Protein) *ABN*(10/04/2012 01:52:38) [facility] GreenvilleRncporrDWZEVPXPYK4945-02-71 06:52:38 Test Item Value Reference Range Interpretation Comments UA pH (test code = UA pH) 5.0 5.0-8.0 N [facility]villeHycejsnHGBRLVEBGE5246-70-29 06:52:38 Test Item Value Reference Range Interpretation Comments UA Spec Grav (test code = UA Spec Grav) 1.022 N [facility]villeNwpvsqzRONVTUJWQW0569-21-94 06:52:38 Test Item Value Reference Range Interpretation Comments UA Turbidity (test code Slight A = UA Turbidity) *ABN*(10/04/2012 01:52:38) [facility] GreenvilleHrepuksYVOMYDNKOC9101-77-93 06:52:38 Test Item Value Reference Range Interpretation Comments UA Nitrite (test code Negative (10/04/2012 N = UA Nitrite) 01:52:38) [facility]villeWjumqniGQILHDYYEQ9392-80-30 06:52:38 Test Item Value Reference Range Interpretation Comments UA Blood (test code = Small *ABN*(10/04/2012 A UA Blood) 01:52:38) [facility]villeTjlspwpVLVKDPHZUC6477-55-28 06:52:38 Test Item Value Reference Range Interpretation Comments UA Bili (test code = Negative *NA*(10/04/2012 UA Bili) 01:52:38) [facility]villeVcnkljiSTQYSXKLJZ3930-90-35 06:52:38 Test Item Value Reference Range Interpretation Comments UA Ketones (test code Negative mg/dL = UA Ketones) *NA*(10/04/2012 01:52:38) [facility]villeCqcdfruWFVELABWVI5285-82-55 06:52:38 Test Item Value Reference Range Interpretation Comments UA Glucose (test code = 30 mg/dL A UA Glucose) *ABN*(10/04/2012 01:52:38) [facility]villeSkslivfPQAUTNTLID6088-45-03 06:52:38 Test Item Value Reference Range Interpretation Comments UA Urobilinogen (test code *NA*(10/04/2012 0.1-1.0 = UA Urobilinogen) 01:52:38) [facility]villeHguivklOUFXCBVCKN7876-02-37 06:52:38 Test Item Value Reference Range Interpretation Comments UA Color (test code = Yellow *NA*(10/04/2012 UA Color) 01:52:38) [facility]villeYcbggrdEFLZCXVKVI6898-03-12 06:52:38 Test Item Value Reference Range Interpretation Comments UA Bacteria (test code Occasional /HPF = UA Bacteria) *NA*(10/04/2012 01:52:38) [facility] GreenvilleUwgfpbtSIIIJGBENB4535-97-48 06:52:38 Test Item Value Reference Range Interpretation Comments UA Sq Epi (test code Occasional /LPF = UA Sq Epi) *NA*(10/04/2012 01:52:38) [facility] GreenvilleZgazmeuQRIFVDPJGY6487-05-13 06:52:38 Test Item Value Reference Range Interpretation Comments UA RBC (test code = 6 See_Comment H [Automa juan message] The UA RBC) system which ge nerated this result transmit juan reference range : <=2. The reference range was not used to interpr et this result as polina l/abnormal. [facility] GreenvilleDuikiqzVJTEAZGJLQ0026-82-70 06:52:38 Test Item Value Reference Range Interpretation Comments UA Leuk Est (test code Small *ABN*(10/04/2012 A = UA Leuk Est) 01:52:38) [facility] GreenvilleFptzirkGXAYAGIPTA5951-66-12 06:52:38 Test Item Value Reference Range Interpretation Comments UA WBC (test code = 12 See_Comment H [Automa juan message] The UA WBC) system which ge nerated this result transmit juan reference range : <=5. The reference range was not used to interpr et this result as polina l/abnormal. [facility] GreenvilleWotonetNMBMJHVAOX4617-44-40 06:52:38 Test Item Value Reference Range Interpretation Comments UA Protein (test code = 10 mg/dL A UA Protein) *ABN*(10/04/2012 01:52:38) [facility]villePdfqiocDPFEHCFOMK6839-38-12 06:52:38 Test Item Value Reference Range Interpretation Comments UA pH (test code = UA pH) 5.0 5.0-8.0 N [facility]villeEwrqornWRWAHIHSUW1746-50-88 06:52:38 Test Item Value Reference Range Interpretation Comments UA Spec Grav (test code = UA Spec Grav) 1.022 N [facility]villeIdthktuVTVHCUDNPZ4373-87-30 06:52:38 Test Item Value Reference Range Interpretation Comments UA Turbidity (test code Slight A = UA Turbidity) *ABN*(10/04/2012 01:52:38) [facility]villeXrlituuQPIBYXEQNK5156-69-59 06:52:38 Test Item Value Reference Range Interpretation Comments UA Nitrite (test code Negative (10/04/2012 N = UA Nitrite) 01:52:38) [facility]villeCnwgqdyEXZAQZHDLB9166-12-09 06:52:38 Test Item Value Reference Range Interpretation Comments UA Blood (test code = Small *ABN*(10/04/2012 A UA Blood) 01:52:38) [facility]villeXebtmhsXWVEMMTLVV4955-80-19 06:52:38 Test Item Value Reference Range Interpretation Comments UA Bili (test code = Negative *NA*(10/04/2012 UA Bili) 01:52:38) [facility]villeHitzhvqRUAMATRFIR0724-00-60 06:52:38 Test Item Value Reference Range Interpretation Comments UA Ketones (test code Negative mg/dL = UA Ketones) *NA*(10/04/2012 01:52:38) [facility] GreenvilleOndpoeoSAHYYQMJIH4745-68-53 06:52:38 Test Item Value Reference Range Interpretation Comments UA Glucose (test code = 30 mg/dL A UA Glucose) *ABN*(10/04/2012 01:52:38) [facility] GreenvilleZzzttwmYQLOSDCOTS2631-70-60 06:52:38 Test Item Value Reference Range Interpretation Comments UA Urobilinogen (test code *NA*(10/04/2012 0.1-1.0 = UA Urobilinogen) 01:52:38) [facility]villeTmqmdrrVOOXCNVNOC6430-31-44 06:52:38 Test Item Value Reference Range Interpretation Comments UA Color (test code = Yellow *NA*(10/04/2012 UA Color) 01:52:38) [facility] GreenvilleDdowsytLSJDJVQWMZ5341-43-98 06:52:38 Test Item Value Reference Range Interpretation Comments UA Bacteria (test code Occasional /HPF = UA Bacteria) *NA*(10/04/2012 01:52:38) [facility]CswfbakEHXWHVKGNW0288-46-73 06:52:38 Test Item Value Reference Range Interpretation Comments UA Sq Epi (test code Occasional /LPF = UA Sq Epi) *NA*(10/04/2012 01:52:38) [facility]villeIdkgafqPJCKVAKCZV7466-81-65 06:52:38 Test Item Value Reference Range Interpretation Comments UA RBC (test code = UA RBC) 6 <=2 H [facility]DdsntifDPFVKSLBMW0589-60-61 06:52:38 Test Item Value Reference Range Interpretation Comments UA Leuk Est (test code Small *ABN*(10/04/2012 A = UA Leuk Est) 01:52:38) [facility]villeWpxvjlgAJARBCSVIZ9462-43-96 06:52:38 Test Item Value Reference Range Interpretation Comments UA WBC (test code = UA WBC) 12 <=5 H [facility]WcokylfZYDDOGLWNG6545-52-23 06:52:38 Test Item Value Reference Range Interpretation Comments UA Protein (test code = 10 mg/dL A UA Protein) *ABN*(10/04/2012 01:52:38) [facility]villeItwdnpsSHIFFEVBTL3946-32-68 06:52:38 Test Item Value Reference Range Interpretation Comments UA pH (test code = UA pH) 5.0 5.0-8.0 N [facility]villePjyuvmeGZIATOCEYD0628-95-04 06:52:38 Test Item Value Reference Range Interpretation Comments UA Spec Grav (test code = UA Spec Grav) 1.022 N [facility]AlopxlbHXNXWZVRPT6104-30-66 06:52:38 Test Item Value Reference Range Interpretation Comments UA Turbidity (test code Slight A = UA Turbidity) *ABN*(10/04/2012 01:52:38) [facility]villeBybswxiTCRFPHWMQU3509-01-85 06:52:38 Test Item Value Reference Range Interpretation Comments UA Nitrite (test code Negative (10/04/2012 N = UA Nitrite) 01:52:38) [facility] GreenvilleAhzjwmmKPZGISVZTF7116-82-83 06:52:38 Test Item Value Reference Range Interpretation Comments UA Blood (test code = Small *ABN*(10/04/2012 A UA Blood) 01:52:38) [facility]BcnrxyjVFAREGEOTJ3639-58-69 06:52:38 Test Item Value Reference Range Interpretation Comments UA Bili (test code = Negative *NA*(10/04/2012 UA Bili) 01:52:38) [facility] GreenvilleEdgicpaRFKTHUPGFK6868-91-02 06:52:38 Test Item Value Reference Range Interpretation Comments UA Ketones (test code Negative mg/dL = UA Ketones) *NA*(10/04/2012 01:52:38) [facility]villeDhtlacdQUCWLEJVMN9020-34-65 06:52:38 Test Item Value Reference Range Interpretation Comments UA Glucose (test code = 30 mg/dL A UA Glucose) *ABN*(10/04/2012 01:52:38) [facility]villeYpwisrkVYGITCAEJI0435-28-62 06:52:38 Test Item Value Reference Range Interpretation Comments UA Urobilinogen (test code *NA*(10/04/2012 0.1-1.0 = UA Urobilinogen) 01:52:38) [facility] GreenvilleFlynrnoZZMACYMGBJ9644-78-70 06:52:38 Test Item Value Reference Range Interpretation Comments UA Color (test code = Yellow *NA*(10/04/2012 UA Color) 01:52:38) [facility] GreenvilleQhecsgfPCOQSDWTOA6388-56-28 06:52:38 Test Item Value Reference Range Interpretation Comments UA Bacteria (test code Occasional /HPF = UA Bacteria) *NA*(10/04/2012 01:52:38) [facility] GreenvilleWvixuseMBLLNYCGPB5032-59-19 06:52:38 Test Item Value Reference Range Interpretation Comments UA Sq Epi (test code Occasional /LPF = UA Sq Epi) *NA*(10/04/2012 01:52:38) [facility] GreenvilleQxemffhTMGIRWBNMV7519-34-92 06:52:38 Test Item Value Reference Range Interpretation Comments UA RBC (test code = UA RBC) 6 <=2 H [facility]UmaozjuMFYLEIXMDH6936-56-01 06:52:38 Test Item Value Reference Range Interpretation Comments UA Leuk Est (test code Small *ABN*(10/04/2012 A = UA Leuk Est) 01:52:38) [facility]DvkwfesPZGOSISAPI3350-95-02 06:52:38 Test Item Value Reference Range Interpretation Comments UA WBC (test code = UA WBC) 12 <=5 H [facility] GreenvilleGvftygnZYONXWJLBG5758-94-35 06:52:38 Test Item Value Reference Range Interpretation Comments UA Protein (test code = 10 mg/dL A UA Protein) *ABN*(10/04/2012 01:52:38) [facility] GreenvilleThxarllUFNOFPEXGU9555-62-15 06:52:38 Test Item Value Reference Range Interpretation Comments UA pH (test code = UA pH) 5.0 5.0-8.0 N [facility] GreenvilleZvdhwriEOAVWPKZGR1875-20-47 06:52:38 Test Item Value Reference Range Interpretation Comments UA Spec Grav (test code = UA Spec Grav) 1.022 N [facility] GreenvilleBcmksppQIKTDIJXEX6157-60-91 06:52:38 Test Item Value Reference Range Interpretation Comments UA Turbidity (test code Slight A = UA Turbidity) *ABN*(10/04/2012 01:52:38) [facility] GreenvilleUiruudgNNBLTYGELA2486-52-96 06:52:38 Test Item Value Reference Range Interpretation Comments UA Nitrite (test code Negative (10/04/2012 N = UA Nitrite) 01:52:38) [facility] GreenvilleAspbrfbKJFSWPCEBH5911-37-10 06:52:38 Test Item Value Reference Range Interpretation Comments UA Blood (test code = Small *ABN*(10/04/2012 A UA Blood) 01:52:38) [facility]villePqsspofKTASZAOHZB1173-49-23 06:52:38 Test Item Value Reference Range Interpretation Comments UA Bili (test code = Negative *NA*(10/04/2012 UA Bili) 01:52:38) [facility] GreenvilleDvfajpaITKJPIWQIB1957-25-85 06:52:38 Test Item Value Reference Range Interpretation Comments UA Ketones (test code Negative mg/dL = UA Ketones) *NA*(10/04/2012 01:52:38) [facility] GreenvilleKfthmstRMIMERSRRK8008-71-73 06:52:38 Test Item Value Reference Range Interpretation Comments UA Glucose (test code = 30 mg/dL A UA Glucose) *ABN*(10/04/2012 01:52:38) [facility] GreenvilleGccjjshANJJFPVIBO0194-93-97 06:52:38 Test Item Value Reference Range Interpretation Comments UA Urobilinogen (test code *NA*(10/04/2012 0.1-1.0 = UA Urobilinogen) 01:52:38) [facility]BsmxrwlVNGXDYNUBP4894-01-08 06:52:38 Test Item Value Reference Range Interpretation Comments UA Color (test code = Yellow *NA*(10/04/2012 UA Color) 01:52:38) [facility]EkoyfczMFCFHINAES2993-68-72 06:52:38 Test Item Value Reference Range Interpretation Comments UA Bacteria (test code Occasional /HPF = UA Bacteria) *NA*(10/04/2012 01:52:38) [facility]BtodqhbDIZQZOUZKI6607-00-42 06:52:38 Test Item Value Reference Range Interpretation Comments UA Sq Epi (test code Occasional /LPF = UA Sq Epi) *NA*(10/04/2012 01:52:38) [facility] GreenvilleZgragyrRMBSQYPYIZ2131-07-37 06:52:38 Test Item Value Reference Range Interpretation Comments UA RBC (test code = UA RBC) 6 <=2 H [facility] GreenvilleFwtnownDLYXFLGWFY2111-52-12 06:52:38 Test Item Value Reference Range Interpretation Comments UA Leuk Est (test code Small *ABN*(10/04/2012 A = UA Leuk Est) 01:52:38) [facility]villeGptldmiUPOVTCJTCT4890-48-46 06:52:38 Test Item Value Reference Range Interpretation Comments UA WBC (test code = UA WBC) 12 <=5 H [facility]GggmavmHASLBBEWRT1854-82-48 06:52:38 Test Item Value Reference Range Interpretation Comments UA Protein (test code = 10 mg/dL A UA Protein) *ABN*(10/04/2012 01:52:38) [facility] GreenvilleDglbbuuUYQHHLUGPY4327-80-62 06:52:38 Test Item Value Reference Range Interpretation Comments UA pH (test code = UA pH) 5.0 5.0-8.0 N [facility]EqvglssWLVDYJNCJA6110-68-00 06:52:38 Test Item Value Reference Range Interpretation Comments UA Spec Grav (test code = UA Spec Grav) 1.022 N [facility]YcfurpkJACEFTFLEV2434-07-00 06:52:38 Test Item Value Reference Range Interpretation Comments UA Turbidity (test code Slight A = UA Turbidity) *ABN*(10/04/2012 01:52:38) [facility]AurdvxsUYWOQBCEQP0328-92-21 06:52:38 Test Item Value Reference Range Interpretation Comments UA Nitrite (test code Negative (10/04/2012 N = UA Nitrite) 01:52:38) [facility]LjzzklmUPGBTRELDN2935-36-92 06:52:38 Test Item Value Reference Range Interpretation Comments UA Blood (test code = Small *ABN*(10/04/2012 A UA Blood) 01:52:38) [facility]villeZzxczjgUQZHFMSKPO0700-73-28 06:52:38 Test Item Value Reference Range Interpretation Comments UA Bili (test code = Negative *NA*(10/04/2012 UA Bili) 01:52:38) [facility]villeOzmrwdzNJTKTRJWMP0784-34-50 06:52:38 Test Item Value Reference Range Interpretation Comments UA Ketones (test code Negative mg/dL = UA Ketones) *NA*(10/04/2012 01:52:38) [facility]villePhfundbXFNFSVRXWN0173-15-19 06:52:38 Test Item Value Reference Range Interpretation Comments UA Glucose (test code = 30 mg/dL A UA Glucose) *ABN*(10/04/2012 01:52:38) [facility]villeRkhgcksJHRAQYRTUD7046-77-62 06:52:38 Test Item Value Reference Range Interpretation Comments UA Urobilinogen (test code *NA*(10/04/2012 0.1-1.0 = UA Urobilinogen) 01:52:38) [facility]villeVgmgiruGRTPVOULSM7054-40-41 06:52:38 Test Item Value Reference Range Interpretation Comments UA Color (test code = Yellow *NA*(10/04/2012 UA Color) 01:52:38) [facility]villeEuclclxGLXEFFCMZG6439-63-80 06:52:38 Test Item Value Reference Range Interpretation Comments UA Bacteria (test code Occasional /HPF = UA Bacteria) *NA*(10/04/2012 01:52:38) [facility]villeUthpapcVRGCJSOHPI0506-04-64 06:52:38 Test Item Value Reference Range Interpretation Comments UA Sq Epi (test code Occasional /LPF = UA Sq Epi) *NA*(10/04/2012 01:52:38) [facility]villeEfnpxxnMRWGAGGHZN2164-49-43 06:52:38 Test Item Value Reference Range Interpretation Comments UA RBC (test code = UA RBC) 6 <=2 H [facility]FfpklatBLVZBCBLRM9856-21-93 06:52:38 Test Item Value Reference Range Interpretation Comments UA Leuk Est (test code Small *ABN*(10/04/2012 A = UA Leuk Est) 01:52:38) [facility]villeItwgnvhUGRZYRCELT0330-65-78 06:52:38 Test Item Value Reference Range Interpretation Comments UA WBC (test code = UA WBC) 12 <=5 H [facility]villeTwnixbcHQMXNDKWTC7274-50-11 06:52:38 Test Item Value Reference Range Interpretation Comments UA Protein (test code = 10 mg/dL A UA Protein) *ABN*(10/04/2012 01:52:38) [facility]villeYunqnruLDXLVBTFYY2203-78-23 06:52:38 Test Item Value Reference Range Interpretation Comments UA pH (test code = UA pH) 5.0 5.0-8.0 N [facility]villeDnswjtoZYRQLIRMZQ8223-59-55 06:52:38 Test Item Value Reference Range Interpretation Comments UA Spec Grav (test code = UA Spec Grav) 1.022 N [facility]villeJrarclhIGUXTMMWQC8967-05-91 06:52:38 Test Item Value Reference Range Interpretation Comments UA Turbidity (test code Slight A = UA Turbidity) *ABN*(10/04/2012 01:52:38) [facility]villeVlqvnvmSLXFIHRLCF6981-06-00 06:52:38 Test Item Value Reference Range Interpretation Comments UA Nitrite (test code Negative (10/04/2012 N = UA Nitrite) 01:52:38) [facility]villeKosupxvVVVBWJWHQX4976-01-29 06:52:38 Test Item Value Reference Range Interpretation Comments UA Blood (test code = Small *ABN*(10/04/2012 A UA Blood) 01:52:38) [facility]villeBozujuvRQECQSDBLX8015-95-63 06:52:38 Test Item Value Reference Range Interpretation Comments UA Bili (test code = Negative *NA*(10/04/2012 UA Bili) 01:52:38) [facility]villeMnhqamfXZSDBRJXAM0902-90-33 06:52:38 Test Item Value Reference Range Interpretation Comments UA Ketones (test code Negative mg/dL = UA Ketones) *NA*(10/04/2012 01:52:38) [facility]villeLkpfwmjYKIDHIZSYS8194-36-24 06:52:38 Test Item Value Reference Range Interpretation Comments UA Glucose (test code = 30 mg/dL A UA Glucose) *ABN*(10/04/2012 01:52:38) [facility]UfouxzsPGRVJJSGXI8655-18-31 06:52:38 Test Item Value Reference Range Interpretation Comments UA Urobilinogen (test code *NA*(10/04/2012 0.1-1.0 = UA Urobilinogen) 01:52:38) [facility]villeUliovrwZBOGBHXTYK0376-04-56 06:52:38 Test Item Value Reference Range Interpretation Comments UA Color (test code = Yellow *NA*(10/04/2012 UA Color) 01:52:38) [facility]villeMxqpsiuOQSSETOCMF3853-57-38 06:52:38 Test Item Value Reference Range Interpretation Comments UA Bacteria (test code Occasional /HPF = UA Bacteria) *NA*(10/04/2012 01:52:38) [facility]villeNaxvjqjWYGCQIEAKW9668-79-28 06:52:38 Test Item Value Reference Range Interpretation Comments UA Sq Epi (test code Occasional /LPF = UA Sq Epi) *NA*(10/04/2012 01:52:38) [facility]villeYwuqxzrFISRBOLXFZ7088-79-26 06:52:38 Test Item Value Reference Range Interpretation Comments UA RBC (test code = UA RBC) 6 <=2 H [facility]EromnobKPKQROWZJO9740-33-78 06:52:38 Test Item Value Reference Range Interpretation Comments UA Leuk Est (test code Small *ABN*(10/04/2012 A = UA Leuk Est) 01:52:38) [facility]villeYuaqqeyANQTECCBVQ5923-59-23 06:52:38 Test Item Value Reference Range Interpretation Comments UA WBC (test code = UA WBC) 12 <=5 H [facility]XnrrbtzSUHALMLNLD6300-50-09 06:52:38 Test Item Value Reference Range Interpretation Comments UA Protein (test code = 10 mg/dL A UA Protein) *ABN*(10/04/2012 01:52:38) [facility]villeGpyexprZNKUQQEUBV3136-55-66 06:52:38 Test Item Value Reference Range Interpretation Comments UA pH (test code = UA pH) 5.0 5.0-8.0 N [facility]MzaocizIPMGNBTAZY2767-96-95 06:52:38 Test Item Value Reference Range Interpretation Comments UA Spec Grav (test code = UA Spec Grav) 1.022 N [facility]ShxgurpOWHQLUVJKY6248-28-68 06:52:38 Test Item Value Reference Range Interpretation Comments UA Turbidity (test code Slight A = UA Turbidity) *ABN*(10/04/2012 01:52:38) [facility]villeEelufgcZQTLDXDPDA4046-20-27 06:52:38 Test Item Value Reference Range Interpretation Comments UA Nitrite (test code Negative (10/04/2012 N = UA Nitrite) 01:52:38) [facility]villeAenplekTTVVEWJCMC0806-73-34 06:52:38 Test Item Value Reference Range Interpretation Comments UA Blood (test code = Small *ABN*(10/04/2012 A UA Blood) 01:52:38) [facility]villeEquffvxHHXPZYHCZG2660-16-70 06:52:38 Test Item Value Reference Range Interpretation Comments UA Bili (test code = Negative *NA*(10/04/2012 UA Bili) 01:52:38) [facility] GreenvilleCulhmglDHRBGNINYK5938-43-57 06:52:38 Test Item Value Reference Range Interpretation Comments UA Ketones (test code Negative mg/dL = UA Ketones) *NA*(10/04/2012 01:52:38) [facility]villeOvmpfxeCQTOXDUFGE4229-20-71 06:52:38 Test Item Value Reference Range Interpretation Comments UA Glucose (test code = 30 mg/dL A UA Glucose) *ABN*(10/04/2012 01:52:38) [facility]villeKllubrjIOPGRYMMGK8228-54-20 06:52:38 Test Item Value Reference Range Interpretation Comments UA Urobilinogen (test code *NA*(10/04/2012 0.1-1.0 = UA Urobilinogen) 01:52:38) [facility] GreenvilleYjlovrqRGZYLCRTYY0045-74-13 06:52:38 Test Item Value Reference Range Interpretation Comments UA Color (test code = Yellow *NA*(10/04/2012 UA Color) 01:52:38) [facility]villeJwbsyvoEBGURGLGBA8158-85-36 06:52:38 Test Item Value Reference Range Interpretation Comments UA Bacteria (test code Occasional /HPF = UA Bacteria) *NA*(10/04/2012 01:52:38) [facility] GreenvilleAxvoyrzQADYKGAGXQ8198-32-26 06:52:38 Test Item Value Reference Range Interpretation Comments UA Sq Epi (test code Occasional /LPF = UA Sq Epi) *NA*(10/04/2012 01:52:38) [facility]GhgczkdTYFYIIOWOO9013-96-39 06:52:38 Test Item Value Reference Range Interpretation Comments UA RBC (test code = UA RBC) 6 <=2 H [facility]villeAohsavoPYNQMGKUGI7448-72-68 06:52:38 Test Item Value Reference Range Interpretation Comments UA Leuk Est (test code Small *ABN*(10/04/2012 A = UA Leuk Est) 01:52:38) [facility] GreenvilleDnbethgXOKLIWMJHK8055-90-69 06:52:38 Test Item Value Reference Range Interpretation Comments UA WBC (test code = UA WBC) 12 <=5 H [facility]KknopybXHCCIUOMDK5258-39-16 06:52:38 Test Item Value Reference Range Interpretation Comments UA Protein (test code = 10 mg/dL A UA Protein) *ABN*(10/04/2012 01:52:38) [facility] GreenvilleUtbexiyMHZZQLKDCM3494-48-44 06:52:38 Test Item Value Reference Range Interpretation Comments UA pH (test code = UA pH) 5.0 5.0-8.0 N [facility]villeSnbrtfjVYPHFXUKUS8911-05-66 06:52:38 Test Item Value Reference Range Interpretation Comments UA Spec Grav (test code = UA Spec Grav) 1.022 N [facility]villePezdpdsJNNOBHVAUY9331-68-17 06:52:38 Test Item Value Reference Range Interpretation Comments UA Turbidity (test code Slight A = UA Turbidity) *ABN*(10/04/2012 01:52:38) [facility] GreenvilleZqdneacCOKCMNZTKV7371-26-83 06:52:38 Test Item Value Reference Range Interpretation Comments UA Nitrite (test code Negative (10/04/2012 N = UA Nitrite) 01:52:38) [facility] GreenvilleBptaeouVBXSHTWWSZ8604-58-28 06:52:38 Test Item Value Reference Range Interpretation Comments UA Blood (test code = Small *ABN*(10/04/2012 A UA Blood) 01:52:38) [facility]villeVdtmkflGRAMNZDYYC0084-32-00 06:52:38 Test Item Value Reference Range Interpretation Comments UA Bili (test code = Negative *NA*(10/04/2012 UA Bili) 01:52:38) [facility]FkfpftyZXMFUNGVRD6376-38-77 06:52:38 Test Item Value Reference Range Interpretation Comments UA Ketones (test code Negative mg/dL = UA Ketones) *NA*(10/04/2012 01:52:38) [facility] GreenvilleBnncfkiJFGAKHLOXN6872-69-82 06:52:38 Test Item Value Reference Range Interpretation Comments UA Glucose (test code = 30 mg/dL A UA Glucose) *ABN*(10/04/2012 01:52:38) [facility]villeTqsxalmRBNLDDNOYP4322-31-81 06:52:38 Test Item Value Reference Range Interpretation Comments UA Urobilinogen (test code *NA*(10/04/2012 0.1-1.0 = UA Urobilinogen) 01:52:38) [facility]villeHipxuxpHISVILQTOZ1518-74-55 06:52:38 Test Item Value Reference Range Interpretation Comments UA Color (test code = Yellow *NA*(10/04/2012 UA Color) 01:52:38) [facility]villeRxkgqjtGJALCVVVFC3741-74-27 06:52:38 Test Item Value Reference Range Interpretation Comments UA Bacteria (test code Occasional /HPF = UA Bacteria) *NA*(10/04/2012 01:52:38) [facility]villeSwbmplxVQPNFLFUTC4893-85-22 06:52:38 Test Item Value Reference Range Interpretation Comments UA Sq Epi (test code Occasional /LPF = UA Sq Epi) *NA*(10/04/2012 01:52:38) [facility]villePbdtdgnGRBGBDRLGE8278-42-04 06:52:38 Test Item Value Reference Range Interpretation Comments UA RBC (test code = UA RBC) 6 <=2 H [facility]villeXdcgmbyKZWXBZVPKW4739-37-35 06:52:38 Test Item Value Reference Range Interpretation Comments UA Leuk Est (test code Small *ABN*(10/04/2012 A = UA Leuk Est) 01:52:38) [facility]villePpevzzwRTCTXITLTL1842-18-12 06:52:38 Test Item Value Reference Range Interpretation Comments UA WBC (test code = UA WBC) 12 <=5 H [facility]ShbdrgiFULGGFABJC6652-51-56 06:52:38 Test Item Value Reference Range Interpretation Comments UA Protein (test code = 10 mg/dL A UA Protein) *ABN*(10/04/2012 01:52:38) [facility] GreenvilleFtuoxgmRGISCHAAGC9818-86-13 06:52:38 Test Item Value Reference Range Interpretation Comments UA pH (test code = UA pH) 5.0 5.0-8.0 N [facility]villeHpdgirdDGYGNJYNXX2952-44-19 06:52:38 Test Item Value Reference Range Interpretation Comments UA Spec Grav (test code = UA Spec Grav) 1.022 N [facility] GreenvilleBtmusiwENEXCZQAOX5382-63-43 06:52:38 Test Item Value Reference Range Interpretation Comments UA Turbidity (test code Slight A = UA Turbidity) *ABN*(10/04/2012 01:52:38) [facility]villeAxrzxoaMEICKRHNCV5587-75-64 06:52:38 Test Item Value Reference Range Interpretation Comments UA Nitrite (test code Negative (10/04/2012 N = UA Nitrite) 01:52:38) [facility]villeHsofpptOKYDIFCUMM5161-69-67 06:52:38 Test Item Value Reference Range Interpretation Comments UA Blood (test code = Small *ABN*(10/04/2012 A UA Blood) 01:52:38) [facility] GreenvilleGtataavJSKNVBBWWS4723-31-31 06:52:38 Test Item Value Reference Range Interpretation Comments UA Bili (test code = Negative *NA*(10/04/2012 UA Bili) 01:52:38) [facility] GreenvilleZqeeuroXRSTJRLTMY4020-89-79 06:52:38 Test Item Value Reference Range Interpretation Comments UA Ketones (test code Negative mg/dL = UA Ketones) *NA*(10/04/2012 01:52:38) [facility]villeNwscglwHMTLJOAETV4035-07-79 06:52:38 Test Item Value Reference Range Interpretation Comments UA Glucose (test code = 30 mg/dL A UA Glucose) *ABN*(10/04/2012 01:52:38) [facility] GreenvilleCiqiajnSNNKAPWUNA9369-20-30 06:52:38 Test Item Value Reference Range Interpretation Comments UA Urobilinogen (test code *NA*(10/04/2012 0.1-1.0 = UA Urobilinogen) 01:52:38) [facility] GreenvilleAbbgkwwXTECQLZAVB0527-57-84 06:52:38 Test Item Value Reference Range Interpretation Comments UA Color (test code = Yellow *NA*(10/04/2012 UA Color) 01:52:38) [facility]villeHkuevprNMROHFUQUR1971-22-83 06:52:38 Test Item Value Reference Range Interpretation Comments UA Bacteria (test code Occasional /HPF = UA Bacteria) *NA*(10/04/2012 01:52:38) [facility]CuxcnbyPHZQVDHYMD0135-40-22 06:52:38 Test Item Value Reference Range Interpretation Comments UA Sq Epi (test code Occasional /LPF = UA Sq Epi) *NA*(10/04/2012 01:52:38) [facility]HgpjfmeMLDTVXYJPG0994-57-28 06:52:38 Test Item Value Reference Range Interpretation Comments UA RBC (test code = UA RBC) 6 <=2 H [facility]TvjgyppCZYLUDJJSQ4262-61-71 06:52:38 Test Item Value Reference Range Interpretation Comments UA Leuk Est (test code Small *ABN*(10/04/2012 A = UA Leuk Est) 01:52:38) [facility] GreenvillePuikixeEWJEKFORDI1478-76-19 06:52:38 Test Item Value Reference Range Interpretation Comments UA WBC (test code = UA WBC) 12 <=5 H [facility]SdpdaxmVTUAOVKSFV3835-58-43 06:52:38 Test Item Value Reference Range Interpretation Comments UA Protein (test code = 10 mg/dL A UA Protein) *ABN*(10/04/2012 01:52:38) [facility]BkzwjqpLYYQKCIYAI3112-10-64 06:52:38 Test Item Value Reference Range Interpretation Comments UA pH (test code = UA pH) 5.0 5.0-8.0 N [facility]villeVszdherFULKWSUBJD9099-22-45 06:52:38 Test Item Value Reference Range Interpretation Comments UA Spec Grav (test code = UA Spec Grav) 1.022 N [facility]XgxilrdZQPAIOLXTY9514-47-17 06:52:38 Test Item Value Reference Range Interpretation Comments UA Turbidity (test code Slight A = UA Turbidity) *ABN*(10/04/2012 01:52:38) [facility]villeAsoqtrwFOLLUPLSKW7856-78-89 06:52:38 Test Item Value Reference Range Interpretation Comments UA Nitrite (test code Negative (10/04/2012 N = UA Nitrite) 01:52:38) [facility]CzlecwpYEPPPZUFLW8669-19-07 06:52:38 Test Item Value Reference Range Interpretation Comments UA Blood (test code = Small *ABN*(10/04/2012 A UA Blood) 01:52:38) [facility]FcnufbkMHWSUBVTWT7401-80-61 06:52:38 Test Item Value Reference Range Interpretation Comments UA Bili (test code = Negative *NA*(10/04/2012 UA Bili) 01:52:38) [facility]JdjuqndPZARVFFRSR4252-80-36 06:52:38 Test Item Value Reference Range Interpretation Comments UA Ketones (test code Negative mg/dL = UA Ketones) *NA*(10/04/2012 01:52:38) [facility]VehsvdfFFFIGCOBIG3545-57-43 06:52:38 Test Item Value Reference Range Interpretation Comments UA Glucose (test code = 30 mg/dL A UA Glucose) *ABN*(10/04/2012 01:52:38) [facility]MikzlgsMKBSXTFUIN3598-29-70 06:52:38 Test Item Value Reference Range Interpretation Comments UA Urobilinogen (test code *NA*(10/04/2012 0.1-1.0 = UA Urobilinogen) 01:52:38) [facility]villeMovdhhtUVSDXMWYUF4001-12-83 06:52:38 Test Item Value Reference Range Interpretation Comments UA Color (test code = Yellow *NA*(10/04/2012 UA Color) 01:52:38) [facility]MkdomzoECDJBVCWDE2643-02-68 06:52:38 Test Item Value Reference Range Interpretation Comments UA Bacteria (test code Occasional /HPF = UA Bacteria) *NA*(10/04/2012 01:52:38) [facility]JmejwuxZZZZBYHSQO7201-40-52 06:52:38 Test Item Value Reference Range Interpretation Comments UA Sq Epi (test code Occasional /LPF = UA Sq Epi) *NA*(10/04/2012 01:52:38) [facility]GdtxkomLGRGSBLEHJ5268-78-08 06:52:38 Test Item Value Reference Range Interpretation Comments UA RBC (test code = UA RBC) 6 <=2 H [facility] FallsOrlyuluCFNSPETFCW1000-83-79 06:52:38 Test Item Value Reference Range Interpretation Comments UA Leuk Est (test code Small *ABN*(10/04/2012 A = UA Leuk Est) 01:52:38) [facility]GxxdtfeSIKJFMCUTZ1577-31-87 06:52:38 Test Item Value Reference Range Interpretation Comments UA WBC (test code = UA WBC) 12 <=5 H [facility] FallsFymnmyfWHNKJPWAMN1695-66-86 06:52:38 Test Item Value Reference Range Interpretation Comments UA Protein (test code = 10 mg/dL A UA Protein) *ABN*(10/04/2012 01:52:38) [facility]villePxttwbmDQDDJVNWHF5604-83-19 06:52:38 Test Item Value Reference Range Interpretation Comments UA pH (test code = UA pH) 5.0 5.0-8.0 N [facility]villePyzjgolFARTMRTMSF2903-26-49 06:52:38 Test Item Value Reference Range Interpretation Comments UA Spec Grav (test code = UA Spec Grav) 1.022 N [facility]villeYchdkwyNLFNEUDJLP4211-44-29 06:52:38 Test Item Value Reference Range Interpretation Comments UA Turbidity (test code Slight A = UA Turbidity) *ABN*(10/04/2012 01:52:38) [facility] GreenvilleJaxjoonIZWKRPAKOI5537-22-95 06:52:38 Test Item Value Reference Range Interpretation Comments UA Nitrite (test code Negative (10/04/2012 N = UA Nitrite) 01:52:38) [facility]villeAngwzxnRVNBHFCGSU4066-27-85 06:52:38 Test Item Value Reference Range Interpretation Comments UA Blood (test code = Small *ABN*(10/04/2012 A UA Blood) 01:52:38) [facility]villePclsnteJEXMDBMFMW0053-18-58 06:52:38 Test Item Value Reference Range Interpretation Comments UA Bili (test code = Negative *NA*(10/04/2012 UA Bili) 01:52:38) [facility]villeSollmxiBGEMCSPPEN4794-07-71 06:52:38 Test Item Value Reference Range Interpretation Comments UA Ketones (test code Negative mg/dL = UA Ketones) *NA*(10/04/2012 01:52:38) [facility]villeLlizlefERLHGSBXVR2629-82-74 06:52:38 Test Item Value Reference Range Interpretation Comments UA Glucose (test code = 30 mg/dL A UA Glucose) *ABN*(10/04/2012 01:52:38) [facility]villeXfcrtqsQAUNEJJGYN4127-98-75 06:52:38 Test Item Value Reference Range Interpretation Comments UA Urobilinogen (test code *NA*(10/04/2012 0.1-1.0 = UA Urobilinogen) 01:52:38) [facility] GreenvilleKlzdasvHUUQQOFXCN3496-99-69 06:52:38 Test Item Value Reference Range Interpretation Comments UA Color (test code = Yellow *NA*(10/04/2012 UA Color) 01:52:38) [facility]IunhervINFSADPBDK2771-42-91 06:52:38 Test Item Value Reference Range Interpretation Comments UA Bacteria (test code Occasional /HPF = UA Bacteria) *NA*(10/04/2012 01:52:38) [facility]SnxhnqfXQIEHPKYIT1038-42-54 06:52:38 Test Item Value Reference Range Interpretation Comments UA Sq Epi (test code Occasional /LPF = UA Sq Epi) *NA*(10/04/2012 01:52:38) [facility]NlfejsySVSZHNLUEZ1692-37-09 06:52:38 Test Item Value Reference Range Interpretation Comments UA RBC (test code = 6 See_Comment H [Automa juan message] The UA RBC) system which ge nerated this result transmit juan reference range : <=2. The reference range was not used to interpr et this result as polina l/abnormal. [facility]AuettvkXJPKUUORJX9803-86-18 06:52:38 Test Item Value Reference Range Interpretation Comments UA Leuk Est (test code Small *ABN*(10/04/2012 A = UA Leuk Est) 01:52:38) [facility]CfxawuaYEVBWSDSXS9145-21-03 06:52:38 Test Item Value Reference Range Interpretation Comments UA WBC (test code = 12 See_Comment H [Automa juan message] The UA WBC) system which ge nerated this result transmit juan reference range : <=5. The reference range was not used to interpr et this result as polina l/abnormal. [facility] FallsGjilucjUWEQUVXUIN6894-37-21 06:52:38 Test Item Value Reference Range Interpretation Comments UA Protein (test code = 10 mg/dL A UA Protein) *ABN*(10/04/2012 01:52:38) [facility]RlozswhIJYLRKPFEE1108-67-84 06:52:38 Test Item Value Reference Range Interpretation Comments UA pH (test code = UA pH) 5.0 5.0-8.0 N [facility]QizhrojLZTYHSRMBK8283-01-84 06:52:38 Test Item Value Reference Range Interpretation Comments UA Spec Grav (test code = UA Spec Grav) 1.022 N [facility] GreenvilleLyazcuxULNLCXFLDB2765-73-80 06:52:38 Test Item Value Reference Range Interpretation Comments UA Turbidity (test code Slight A = UA Turbidity) *ABN*(10/04/2012 01:52:38) [facility] GreenvillePlwddmjYCKZKMTCSY3337-60-39 06:52:38 Test Item Value Reference Range Interpretation Comments UA Nitrite (test code Negative (10/04/2012 N = UA Nitrite) 01:52:38) [facility]villeGbqbuquGBJZQCJJSX4060-09-35 06:52:38 Test Item Value Reference Range Interpretation Comments UA Blood (test code = Small *ABN*(10/04/2012 A UA Blood) 01:52:38) [facility] GreenvilleJucwgmpNFFXSVGBLG4879-79-42 06:52:38 Test Item Value Reference Range Interpretation Comments UA Bili (test code = Negative *NA*(10/04/2012 UA Bili) 01:52:38) [facility] GreenvilleRlqyexeQQWLZTPNDR6131-75-05 06:52:38 Test Item Value Reference Range Interpretation Comments UA Ketones (test code Negative mg/dL = UA Ketones) *NA*(10/04/2012 01:52:38) [facility]villeTimwpbdYJBULVSSJX3956-65-02 06:52:38 Test Item Value Reference Range Interpretation Comments UA Glucose (test code = 30 mg/dL A UA Glucose) *ABN*(10/04/2012 01:52:38) [facility] GreenvilleNlsddkpFUQIGZVKCR7150-89-11 06:52:38 Test Item Value Reference Range Interpretation Comments UA Urobilinogen (test code *NA*(10/04/2012 0.1-1.0 = UA Urobilinogen) 01:52:38) [facility]villeAcpxkyoXWEGOUOEUT4510-86-22 06:52:38 Test Item Value Reference Range Interpretation Comments UA Color (test code = Yellow *NA*(10/04/2012 UA Color) 01:52:38) [facility] GreenvilleGkyezepCEBUIAOXSD1829-22-33 06:52:38 Test Item Value Reference Range Interpretation Comments UA Bacteria (test code Occasional /HPF = UA Bacteria) *NA*(10/04/2012 01:52:38) [facility] GreenvilleUrjskluAHJPQHDWHR0150-65-93 06:52:38 Test Item Value Reference Range Interpretation Comments UA Sq Epi (test code Occasional /LPF = UA Sq Epi) *NA*(10/04/2012 01:52:38) [facility]LvfkktlBSOGESTYLK8195-41-52 06:52:38 Test Item Value Reference Range Interpretation Comments UA RBC (test code = UA RBC) 6 <=2 H [facility]WbajmvkIASURLAEUR9227-00-75 06:52:38 Test Item Value Reference Range Interpretation Comments UA Leuk Est (test code Small *ABN*(10/04/2012 A = UA Leuk Est) 01:52:38) [facility]IysvmvgYYEBDWBZIH3186-19-07 06:52:38 Test Item Value Reference Range Interpretation Comments UA WBC (test code = UA WBC) 12 <=5 H [facility]SkmzmidDGTQBMAXMC5842-16-76 06:52:38 Test Item Value Reference Range Interpretation Comments UA Protein (test code = 10 mg/dL A UA Protein) *ABN*(10/04/2012 01:52:38) [facility]villeIrwhjlqVREFMPAVAC9680-29-04 06:52:38 Test Item Value Reference Range Interpretation Comments UA pH (test code = UA pH) 5.0 5.0-8.0 N [facility]pzfJLDXUARAMH1431-96-14 06:52:38 Test Item Value Reference Range Interpretation Comments UA Spec Grav (test code = UA Spec Grav) 1.022 N [facility]TsrptviPVQTGUBRHL5520-27-77 06:52:38 Test Item Value Reference Range Interpretation Comments UA Turbidity (test code Slight A = UA Turbidity) *ABN*(10/04/2012 01:52:38) [facility]villeNdqqpnkYJTXGYNEUN8773-42-87 06:52:38 Test Item Value Reference Range Interpretation Comments UA Nitrite (test code Negative (10/04/2012 N = UA Nitrite) 01:52:38) [facility]villeSbfhwbnZXLVYSUYRL4692-53-46 06:52:38 Test Item Value Reference Range Interpretation Comments UA Blood (test code = Small *ABN*(10/04/2012 A UA Blood) 01:52:38) [facility]PwslyuhAVAIYKKDGI6422-69-81 06:52:38 Test Item Value Reference Range Interpretation Comments UA Bili (test code = Negative *NA*(10/04/2012 UA Bili) 01:52:38) [facility]KbporniRTFKKWYFTG9674-82-71 06:52:38 Test Item Value Reference Range Interpretation Comments UA Ketones (test code Negative mg/dL = UA Ketones) *NA*(10/04/2012 01:52:38) [facility]QqsxbycSGSUELEJEV7658-56-26 06:52:38 Test Item Value Reference Range Interpretation Comments UA Glucose (test code = 30 mg/dL A UA Glucose) *ABN*(10/04/2012 01:52:38) [facility]UmeyeryZXEUOOOZG4279-79-08 06:52:00 Test Item Value Reference Range Interpretation Comments Phosphorus (test code = Phosphorus) 3.5 2.5-4.5 N [facility] HospitalHxqcsasURAXHFFYC2596-06-98 06:52:00 Test Item Value Reference Range Interpretation Comments AGAP (test code = AGAP) 13.4 10.0-20.0 N [facility] HospitalDljdcicGNTHPHDXS7689-87-89 06:52:00 Test Item Value Reference Range Interpretation Comments Glucose Lvl (test code = Glucose Lvl) 181 70-99 H [facility] HospitalHykmpvhHAUORIYFF4987-47-71 06:52:00 Test Item Value Reference Range Interpretation Comments Creatinine Lvl (test code = Creatinine 0.9 0.5-1.4 N Lvl) [facility] HospitalMultzsqPGCHYWBPA6895-51-77 06:52:00 Test Item Value Reference Range Interpretation Comments BUN (test code = BUN) 17 7-22 N [facility] HospitalAitpjevBKDKMFWNN3484-11-63 06:52:00 Test Item Value Reference Range Interpretation Comments Sodium Lvl (test code = Sodium Lvl) 140 135-145 N [facility] HospitalCerrvtwCZNXGQGCH0269-46-88 06:52:00 Test Item Value Reference Range Interpretation Comments Chloride Lvl (test code = Chloride Lvl) 105 95-109 N [facility] HospitalXifbksrLRZSGTMDJ8241-15-40 06:52:00 Test Item Value Reference Range Interpretation Comments Calcium Lvl (test code = Calcium Lvl) 9.7 8.5-10.5 N [facility] HospitalLjbfxnoVAEJHOTGO3788-74-33 06:52:00 Test Item Value Reference Range Interpretation Comments Potassium Lvl (test code = Potassium 4.4 3.5-5.1 N Lvl) [facility] HospitalZnxwoiyJMSWWKTMQ9510-06-94 06:52:00 Test Item Value Reference Range Interpretation Comments CO2 (test code = CO2) 26 24-32 N [facility] HospitalZlqebsnNMPLJCPTX0120-65-87 06:52:00 Test Item Value Reference Range Interpretation Comments eGFR (test code = eGFR) 65 [facility] FallsDkdpgdrPRXVJMFWM7018-77-35 06:52:00 Test Item Value Reference Range Interpretation Comments Magnesium Lvl (test code = Magnesium 1.5 1.8-2.4 L Lvl) [facility] PasoCongyztNBEZSDMRTR1035-77-09 06:52:00 Test Item Value Reference Range Interpretation Comments RBC (test code = RBC) 4.85 4.20-5.40 N [facility] PasoBgmwjisRYCONRWYMB6102-51-59 06:52:00 Test Item Value Reference Range Interpretation Comments WBC (test code = WBC) 9.2 3.7-10.4 N [facility] PasoBghurbaLZARJWMELI7568-01-85 06:52:00 Test Item Value Reference Range Interpretation Comments Hgb (test code = Hgb) 14.9 12.0-16.0 N [facility] PasoXjdvcqgYKMAVCFTPT5109-34-06 06:52:00 Test Item Value Reference Range Interpretation Comments MCHC (test code = MCHC) 33.3 32.0-36.0 N [facility] PasoUkkkvgbFUYJGSUURJ5596-18-22 06:52:00 Test Item Value Reference Range Interpretation Comments MCH (test code = MCH) 30.7 pg 27.0-31.0 N [facility] PasoIytgmuoSXGDCUFYSC0643-81-37 06:52:00 Test Item Value Reference Range Interpretation Comments Hct (test code = Hct) 44.9 36.0-48.0 N [facility] PasoZikboyuJNIMWXSAMI5870-68-77 06:52:00 Test Item Value Reference Range Interpretation Comments MCV (test code = MCV) 92.4 81.0-99.0 N [facility] PasoJntvqkaZFWOZQMKPX8764-93-32 06:52:00 Test Item Value Reference Range Interpretation Comments RDW (test code = RDW) 14.5 11.5-14.5 N [facility] PasoAbgzspiBMRIOXNWSJ4162-72-44 06:52:00 Test Item Value Reference Range Interpretation Comments Platelet (test code = Platelet) 213 133-450 N [facility] PasoVaxzbstZKCQEGKQTT0675-76-96 06:52:00 Test Item Value Reference Range Interpretation Comments MPV (test code = MPV) 9.5 7.4-10.4 N [facility] PasoZomzbsuEJWQUDYHDK3435-78-91 06:52:00 Test Item Value Reference Range Interpretation Comments Segs-Bands # (test code = Segs-Bands #) 7.7 1.5-8.1 N [facility] PasoUinotbsNYBUQNOKFS6475-85-19 06:52:00 Test Item Value Reference Range Interpretation Comments Basophils (test code = 0.3 See_Comment N [Aut omated message] The Basophils) system which ge nerated this result tra nsmitted reference range : <=1.0. The reference r leatha was not used to int erpret this result as normal/abnormal . [facility] PasoHzetiihLCSXADHWRV5212-61-92 06:52:00 Test Item Value Reference Range Interpretation Comments Monocytes # (test code 0.6 See_Comment N [Aut omated message] The = Monocytes #) system which generated this result tra nsmitted reference range : <=0.8. The reference r leatha was not used to int erpret this result as normal/abnormal . [facility] PasoEuzladqULQTYTKCYT4790-09-04 06:52:00 Test Item Value Reference Range Interpretation Comments Lymphocytes # (test code = Lymphocytes 0.9 1.0-5.5 L #) [facility] PasoVpbrmbfXNYHLTJGRF5385-09-03 06:52:00 Test Item Value Reference Range Interpretation Comments Lymphocytes (test code = Lymphocytes) 9.5 20.0-40.0 L [facility] PasoHfqclswAVLHFCQWJN8146-70-19 06:52:00 Test Item Value Reference Range Interpretation Comments Segs (test code = Segs) 84.1 45.0-75.0 H [facility] PasoOqjidzsETOPQJMVOT1974-21-12 06:52:00 Test Item Value Reference Range Interpretation Comments Monocytes (test code = Monocytes) 6.0 2.0-12.0 N [facility] PasoKtdiidnVFUKNNKXYO5055-25-61 06:52:00 Test Item Value Reference Range Interpretation Comments Eosinophils (test code = 0.1 See_Comment N [A utomated message] The Eosinophils) system which ge nerated this result tra nsmitted reference range : <=4.0. The reference r leatha was not used to int erpret this result as normal/abnormal . [facility] HospitalEpiooqcXCVVCZWGD6540-47-91 06:52:00 Test Item Value Reference Range Interpretation Comments Phosphorus (test code = Phosphorus) 3.5 2.5-4.5 N [facility] HospitalDxqdscpNMMHMTSWC1953-12-32 06:52:00 Test Item Value Reference Range Interpretation Comments AGAP (test code = AGAP) 13.4 10.0-20.0 N [facility] HospitalStvvkrtFMMUACNXX5809-78-61 06:52:00 Test Item Value Reference Range Interpretation Comments Glucose Lvl (test code = Glucose Lvl) 181 70-99 H [facility] HospitalTqffhyxPGRTNZPMY0066-83-07 06:52:00 Test Item Value Reference Range Interpretation Comments Creatinine Lvl (test code = Creatinine 0.9 0.5-1.4 N Lvl) [facility] HospitalRufcbftQBNHYXFRR7287-33-16 06:52:00 Test Item Value Reference Range Interpretation Comments BUN (test code = BUN) 17 7-22 N [facility] HospitalGxxjlfhKFJIQTFJV2913-19-56 06:52:00 Test Item Value Reference Range Interpretation Comments Sodium Lvl (test code = Sodium Lvl) 140 135-145 N [facility] HospitalZhqkjniLQTQOTBMY7155-60-91 06:52:00 Test Item Value Reference Range Interpretation Comments Chloride Lvl (test code = Chloride Lvl) 105 95-109 N [facility] HospitalJrhqdciAVBAHRRNZ6261-43-34 06:52:00 Test Item Value Reference Range Interpretation Comments Calcium Lvl (test code = Calcium Lvl) 9.7 8.5-10.5 N [facility] HospitalTnqvgalFUIPNTEWX1554-53-24 06:52:00 Test Item Value Reference Range Interpretation Comments Potassium Lvl (test code = Potassium 4.4 3.5-5.1 N Lvl) [facility] HospitalKlnrftuISFMRNDRH6688-83-69 06:52:00 Test Item Value Reference Range Interpretation Comments CO2 (test code = CO2) 26 24-32 N [facility] HospitalDloueryPQXMCQWZA5526-15-92 06:52:00 Test Item Value Reference Range Interpretation Comments eGFR (test code = eGFR) 65 [facility] HospitalJzxqwrbFKDNPPGNV6564-88-30 06:52:00 Test Item Value Reference Range Interpretation Comments Magnesium Lvl (test code = Magnesium 1.5 1.8-2.4 L Lvl) [facility] PasoEcbvledSUNIPOVCJI8457-22-53 06:52:00 Test Item Value Reference Range Interpretation Comments RBC (test code = RBC) 4.85 4.20-5.40 N [facility] PasoJvpcorsHPGCWMSAJN4825-28-36 06:52:00 Test Item Value Reference Range Interpretation Comments WBC (test code = WBC) 9.2 3.7-10.4 N [facility] PasoKzxutuqCOUYQOHMNH9035-75-31 06:52:00 Test Item Value Reference Range Interpretation Comments Hgb (test code = Hgb) 14.9 12.0-16.0 N [facility] PasoKvlxrdlUGMCWOPEWB1949-11-66 06:52:00 Test Item Value Reference Range Interpretation Comments MCHC (test code = MCHC) 33.3 32.0-36.0 N [facility] PasoDdbjthyVFVZXKPORZ9100-67-43 06:52:00 Test Item Value Reference Range Interpretation Comments MCH (test code = MCH) 30.7 pg 27.0-31.0 N [facility] PasoUfouhmmUKZZHQDEDD1770-20-17 06:52:00 Test Item Value Reference Range Interpretation Comments Hct (test code = Hct) 44.9 36.0-48.0 N [facility] PasoNoffwtmDRWPPAVLHP9257-20-50 06:52:00 Test Item Value Reference Range Interpretation Comments MCV (test code = MCV) 92.4 81.0-99.0 N [facility] PasoNbvdzwtYHJOWZEVYR9065-27-49 06:52:00 Test Item Value Reference Range Interpretation Comments RDW (test code = RDW) 14.5 11.5-14.5 N [facility] PasoZhapiuaUIYLEDXKKC9215-32-29 06:52:00 Test Item Value Reference Range Interpretation Comments Platelet (test code = Platelet) 213 133-450 N [facility] PasoPvvtmouLNMXKNQCLW3988-42-88 06:52:00 Test Item Value Reference Range Interpretation Comments MPV (test code = MPV) 9.5 7.4-10.4 N [facility] PasoHgbafyuCBZEPGCKMY5917-75-96 06:52:00 Test Item Value Reference Range Interpretation Comments Segs-Bands # (test code = Segs-Bands #) 7.7 1.5-8.1 N [facility] PasoMnuwiujXLECHBAQZT1527-80-48 06:52:00 Test Item Value Reference Range Interpretation Comments Basophils (test code = 0.3 See_Comment N [Aut omated message] The Basophils) system which ge nerated this result tra nsmitted reference range : <=1.0. The reference r leatha was not used to int erpret this result as normal/abnormal . [facility] PasoCweaoubWLPCHQTUXI0393-05-46 06:52:00 Test Item Value Reference Range Interpretation Comments Monocytes # (test code 0.6 See_Comment N [Aut omated message] The = Monocytes #) system which generated this result tra nsmitted reference range : <=0.8. The reference r leatha was not used to int erpret this result as normal/abnormal . [facility] PasoWrunswaQFMGEQQDCD7337-78-51 06:52:00 Test Item Value Reference Range Interpretation Comments Lymphocytes # (test code = Lymphocytes 0.9 1.0-5.5 L #) [facility] PasoBakbivfLLLCFIDUAJ0271-42-03 06:52:00 Test Item Value Reference Range Interpretation Comments Lymphocytes (test code = Lymphocytes) 9.5 20.0-40.0 L [facility] PasoQiwabaaPLSUBBCMQY0918-53-06 06:52:00 Test Item Value Reference Range Interpretation Comments Segs (test code = Segs) 84.1 45.0-75.0 H [facility] PasoFrlaxylIONXKHWRXK4250-01-61 06:52:00 Test Item Value Reference Range Interpretation Comments Monocytes (test code = Monocytes) 6.0 2.0-12.0 N [facility] PasoLhiltsbGADJBPELFG1023-84-46 06:52:00 Test Item Value Reference Range Interpretation Comments Eosinophils (test code = 0.1 See_Comment N [A utomated message] The Eosinophils) system which ge nerated this result tra nsmitted reference range : <=4.0. The reference r leatha was not used to int erpret this result as normal/abnormal . [facility] HospitalRkypnpiGVYFYKZMF1915-92-86 06:52:00 Test Item Value Reference Range Interpretation Comments Phosphorus (test code = Phosphorus) 3.5 2.5-4.5 N [facility] HospitalNdlelylDGMHDDEBQ0658-38-05 06:52:00 Test Item Value Reference Range Interpretation Comments AGAP (test code = AGAP) 13.4 10.0-20.0 N [facility] HospitalJdudbnpKJYGVBJVW4893-49-68 06:52:00 Test Item Value Reference Range Interpretation Comments Glucose Lvl (test code = Glucose Lvl) 181 70-99 H [facility] HospitalLyymsymTVAEQGMWB3435-81-04 06:52:00 Test Item Value Reference Range Interpretation Comments Creatinine Lvl (test code = Creatinine 0.9 0.5-1.4 N Lvl) [facility] HospitalKbsltldAHEWPDQJV5194-32-01 06:52:00 Test Item Value Reference Range Interpretation Comments BUN (test code = BUN) 17 7-22 N [facility] HospitalLdoiyhyUACYFBOGY5905-75-04 06:52:00 Test Item Value Reference Range Interpretation Comments Sodium Lvl (test code = Sodium Lvl) 140 135-145 N [facility] HospitalHckxfijPFTNMEEKS1421-30-44 06:52:00 Test Item Value Reference Range Interpretation Comments Chloride Lvl (test code = Chloride Lvl) 105 95-109 N [facility] HospitalPobnwdxAOEUDHOFR7683-04-69 06:52:00 Test Item Value Reference Range Interpretation Comments Calcium Lvl (test code = Calcium Lvl) 9.7 8.5-10.5 N [facility] HospitalAqjfiekLLWFPXWTX8561-09-67 06:52:00 Test Item Value Reference Range Interpretation Comments Potassium Lvl (test code = Potassium 4.4 3.5-5.1 N Lvl) [facility] HospitalWzcplkpMWQVQWVSX6307-00-43 06:52:00 Test Item Value Reference Range Interpretation Comments CO2 (test code = CO2) 26 24-32 N [facility] HospitalDlxrojbYWXUOEHBI8850-12-36 06:52:00 Test Item Value Reference Range Interpretation Comments eGFR (test code = eGFR) 65 [facility] HospitalWyabhctHSMEGPKDB1908-17-09 06:52:00 Test Item Value Reference Range Interpretation Comments Magnesium Lvl (test code = Magnesium 1.5 1.8-2.4 L Lvl) [facility] PasoJutyludKZYCPJOWNC2343-82-80 06:52:00 Test Item Value Reference Range Interpretation Comments RBC (test code = RBC) 4.85 4.20-5.40 N [facility] PasoStyhbkdRFNBXDCOKT8503-55-58 06:52:00 Test Item Value Reference Range Interpretation Comments WBC (test code = WBC) 9.2 3.7-10.4 N [facility] PasoFawupldHZTREOABOL4162-25-39 06:52:00 Test Item Value Reference Range Interpretation Comments Hgb (test code = Hgb) 14.9 12.0-16.0 N [facility] PasoKfubjcgGDEUCFWLJC8358-78-78 06:52:00 Test Item Value Reference Range Interpretation Comments MCHC (test code = MCHC) 33.3 32.0-36.0 N [facility] PasoWqxjtfkZJPUOCYCDP3104-31-45 06:52:00 Test Item Value Reference Range Interpretation Comments MCH (test code = MCH) 30.7 pg 27.0-31.0 N [facility] PasoZangncgKEKLWYIGDW1137-71-16 06:52:00 Test Item Value Reference Range Interpretation Comments Hct (test code = Hct) 44.9 36.0-48.0 N [facility] PasoPqyyqqeDGWCLADNYC7473-79-65 06:52:00 Test Item Value Reference Range Interpretation Comments MCV (test code = MCV) 92.4 81.0-99.0 N [facility] PasoHqytuebBMTXHFBRCM7624-22-50 06:52:00 Test Item Value Reference Range Interpretation Comments RDW (test code = RDW) 14.5 11.5-14.5 N [facility] PasoXriqtftNTRFRKXVBW1194-44-82 06:52:00 Test Item Value Reference Range Interpretation Comments Platelet (test code = Platelet) 213 133-450 N [facility] PasoXapddssEGCWDVPCHV9594-58-15 06:52:00 Test Item Value Reference Range Interpretation Comments MPV (test code = MPV) 9.5 7.4-10.4 N [facility] PasoTvaxtfsQWDEVGNMXR5658-49-36 06:52:00 Test Item Value Reference Range Interpretation Comments Segs-Bands # (test code = Segs-Bands #) 7.7 1.5-8.1 N [facility] PasoMrgbfmuSVOWFOOYSP3760-83-38 06:52:00 Test Item Value Reference Range Interpretation Comments Basophils (test code = 0.3 See_Comment N [Aut omated message] The Basophils) system which ge nerated this result tra nsmitted reference range : <=1.0. The reference r leatha was not used to int erpret this result as normal/abnormal . [facility] PasoNbonwwuKAQAVJPKDY9321-37-60 06:52:00 Test Item Value Reference Range Interpretation Comments Monocytes # (test code 0.6 See_Comment N [Aut omated message] The = Monocytes #) system which generated this result tra nsmitted reference range : <=0.8. The reference r leatha was not used to int erpret this result as normal/abnormal . [facility] PasoYrnaggoOCHHPYSUOD1660-60-77 06:52:00 Test Item Value Reference Range Interpretation Comments Lymphocytes # (test code = Lymphocytes 0.9 1.0-5.5 L #) [facility] PasoKwajexaNFQGPJNUDT2283-50-07 06:52:00 Test Item Value Reference Range Interpretation Comments Lymphocytes (test code = Lymphocytes) 9.5 20.0-40.0 L [facility] PasoShcbbxmNUCGTJEFTB0339-30-61 06:52:00 Test Item Value Reference Range Interpretation Comments Segs (test code = Segs) 84.1 45.0-75.0 H [facility] PasoDliisuiQSDSPPDDAP4957-75-77 06:52:00 Test Item Value Reference Range Interpretation Comments Monocytes (test code = Monocytes) 6.0 2.0-12.0 N [facility] PasoRaggyypUSVWVFZBLA8810-66-31 06:52:00 Test Item Value Reference Range Interpretation Comments Eosinophils (test code = 0.1 See_Comment N [A utomated message] The Eosinophils) system which ge nerated this result tra nsmitted reference range : <=4.0. The reference r leatha was not used to int erpret this result as normal/abnormal . [facility] HospitalFxafmldFEGLMLAIZ4905-72-68 06:52:00 Test Item Value Reference Range Interpretation Comments Phosphorus (test code = Phosphorus) 3.5 2.5-4.5 N [facility] HospitalCytbzgaZPRZOCXVA7228-83-34 06:52:00 Test Item Value Reference Range Interpretation Comments AGAP (test code = AGAP) 13.4 10.0-20.0 N [facility] HospitalSdareodNQYJIKENC0946-42-55 06:52:00 Test Item Value Reference Range Interpretation Comments Glucose Lvl (test code = Glucose Lvl) 181 70-99 H [facility] HospitalGerrjjyZVYSLJDNF1767-34-91 06:52:00 Test Item Value Reference Range Interpretation Comments Creatinine Lvl (test code = Creatinine 0.9 0.5-1.4 N Lvl) [facility] HospitalFwbdalvQXJUKMTBH5360-86-81 06:52:00 Test Item Value Reference Range Interpretation Comments BUN (test code = BUN) 17 7-22 N [facility] HospitalCyqvupvRHYWYNBRE8008-87-40 06:52:00 Test Item Value Reference Range Interpretation Comments Sodium Lvl (test code = Sodium Lvl) 140 135-145 N [facility] HospitalWhuavqaVJHGNXNSD5068-15-45 06:52:00 Test Item Value Reference Range Interpretation Comments Chloride Lvl (test code = Chloride Lvl) 105 95-109 N [facility] HospitalVigsgejBDNDBAJYS3740-06-66 06:52:00 Test Item Value Reference Range Interpretation Comments Calcium Lvl (test code = Calcium Lvl) 9.7 8.5-10.5 N [facility] HospitalCchbycjYUPSCHPOH8529-43-83 06:52:00 Test Item Value Reference Range Interpretation Comments Potassium Lvl (test code = Potassium 4.4 3.5-5.1 N Lvl) [facility] HospitalGdlehicYKDUJWURJ4820-76-67 06:52:00 Test Item Value Reference Range Interpretation Comments CO2 (test code = CO2) 26 24-32 N [facility] HospitalVybaygvKFGEZBVID3878-41-86 06:52:00 Test Item Value Reference Range Interpretation Comments eGFR (test code = eGFR) 65 [facility] HospitalUhvwehzJNJIHSHRY7190-73-64 06:52:00 Test Item Value Reference Range Interpretation Comments Magnesium Lvl (test code = Magnesium 1.5 1.8-2.4 L Lvl) [facility] PasoMkswjjiHFDAZYVIKN1055-69-64 06:52:00 Test Item Value Reference Range Interpretation Comments RBC (test code = RBC) 4.85 4.20-5.40 N [facility] PasoFisjeauJZMXIVTDFY4589-15-12 06:52:00 Test Item Value Reference Range Interpretation Comments WBC (test code = WBC) 9.2 3.7-10.4 N [facility] PasoQferlreOYEVQAGBLY0334-23-14 06:52:00 Test Item Value Reference Range Interpretation Comments Hgb (test code = Hgb) 14.9 12.0-16.0 N [facility] PasoEbpipxsXOJDSYMNPC0633-58-29 06:52:00 Test Item Value Reference Range Interpretation Comments MCHC (test code = MCHC) 33.3 32.0-36.0 N [facility] PasoUawskqqMXVMPKPUVU5353-81-97 06:52:00 Test Item Value Reference Range Interpretation Comments MCH (test code = MCH) 30.7 pg 27.0-31.0 N [facility] PasoRukcwygUJEVZYNMZV5368-18-78 06:52:00 Test Item Value Reference Range Interpretation Comments Hct (test code = Hct) 44.9 36.0-48.0 N [facility] PasoQikyjtqVUDBZKFOOV0809-54-92 06:52:00 Test Item Value Reference Range Interpretation Comments MCV (test code = MCV) 92.4 81.0-99.0 N [facility] PasoKwnwyauYVCULQSDAJ1333-22-33 06:52:00 Test Item Value Reference Range Interpretation Comments RDW (test code = RDW) 14.5 11.5-14.5 N [facility] PasoNlacbtcIYCGDMWQSX7883-63-35 06:52:00 Test Item Value Reference Range Interpretation Comments Platelet (test code = Platelet) 213 133-450 N [facility] PasoFpbrwcdTFHJLCOMOO1368-72-02 06:52:00 Test Item Value Reference Range Interpretation Comments MPV (test code = MPV) 9.5 7.4-10.4 N [facility] PasoColxtilHGURGVTUQA7817-80-53 06:52:00 Test Item Value Reference Range Interpretation Comments Segs-Bands # (test code = Segs-Bands #) 7.7 1.5-8.1 N [facility] PasoCpceicrDLCHCBNERG6134-15-95 06:52:00 Test Item Value Reference Range Interpretation Comments Basophils (test code = 0.3 See_Comment N [Aut omated message] The Basophils) system which ge nerated this result tra nsmitted reference range : <=1.0. The reference r leatha was not used to int erpret this result as normal/abnormal . [facility] PasoItnuiyvSFCWAPUPKW3284-69-37 06:52:00 Test Item Value Reference Range Interpretation Comments Monocytes # (test code 0.6 See_Comment N [Aut omated message] The = Monocytes #) system which generated this result tra nsmitted reference range : <=0.8. The reference r leatha was not used to int erpret this result as normal/abnormal . [facility] PasoLppyzmiBLBUHLPJDH6208-33-11 06:52:00 Test Item Value Reference Range Interpretation Comments Lymphocytes # (test code = Lymphocytes 0.9 1.0-5.5 L #) [facility] PasoYuumjbaQJKWGJPIKI9749-21-32 06:52:00 Test Item Value Reference Range Interpretation Comments Lymphocytes (test code = Lymphocytes) 9.5 20.0-40.0 L [facility] PasoSyzjifhSMITVQZOVL2875-97-77 06:52:00 Test Item Value Reference Range Interpretation Comments Segs (test code = Segs) 84.1 45.0-75.0 H [facility] PasoUoenbwrYMWIRXLBMA1683-64-41 06:52:00 Test Item Value Reference Range Interpretation Comments Monocytes (test code = Monocytes) 6.0 2.0-12.0 N [facility] PasoSjlblfbMSDHRWZDXS0569-10-99 06:52:00 Test Item Value Reference Range Interpretation Comments Eosinophils (test code = 0.1 See_Comment N [A utomated message] The Eosinophils) system which ge nerated this result tra nsmitted reference range : <=4.0. The reference r leatha was not used to int erpret this result as normal/abnormal . [facility]MdpmrixWTAXNXHKA6435-63-92 06:52:00 Test Item Value Reference Range Interpretation Comments Phosphorus (test code = Phosphorus) 3.5 2.5-4.5 N [facility] HospitalMidlzudUBPQYYUBY4089-40-54 06:52:00 Test Item Value Reference Range Interpretation Comments AGAP (test code = AGAP) 13.4 10.0-20.0 N [facility] HospitalUpenynkULUYFKAMC5293-24-58 06:52:00 Test Item Value Reference Range Interpretation Comments Glucose Lvl (test code = Glucose Lvl) 181 70-99 H [facility] HospitalUwmaashXAOQWZSDS7485-30-92 06:52:00 Test Item Value Reference Range Interpretation Comments Creatinine Lvl (test code = Creatinine 0.9 0.5-1.4 N Lvl) [facility] HospitalQhvuikrHRFWLGIQW2353-03-24 06:52:00 Test Item Value Reference Range Interpretation Comments BUN (test code = BUN) 17 7-22 N [facility] HospitalCgzwlemNXYLJMPJA3817-33-58 06:52:00 Test Item Value Reference Range Interpretation Comments Sodium Lvl (test code = Sodium Lvl) 140 135-145 N [facility] HospitalAdxavzdBCUGGNHYF5016-78-46 06:52:00 Test Item Value Reference Range Interpretation Comments Chloride Lvl (test code = Chloride Lvl) 105 95-109 N [facility] HospitalKeyccpuTXZCIGCPZ7316-32-42 06:52:00 Test Item Value Reference Range Interpretation Comments Calcium Lvl (test code = Calcium Lvl) 9.7 8.5-10.5 N [facility] HospitalSsrvtakPYGZLMDQS7168-00-33 06:52:00 Test Item Value Reference Range Interpretation Comments Potassium Lvl (test code = Potassium 4.4 3.5-5.1 N Lvl) [facility] HospitalNbsbldsRWPPSVVCR3903-07-18 06:52:00 Test Item Value Reference Range Interpretation Comments CO2 (test code = CO2) 26 24-32 N [facility] HospitalWtjybriAUYFBALZN7376-59-44 06:52:00 Test Item Value Reference Range Interpretation Comments eGFR (test code = eGFR) 65 [facility] HospitalFzrdufyIMBUQYXWW2652-83-69 06:52:00 Test Item Value Reference Range Interpretation Comments Magnesium Lvl (test code = Magnesium 1.5 1.8-2.4 L Lvl) [facility]FnoavvnJBXHHVGYID5257-01-92 06:52:00 Test Item Value Reference Range Interpretation Comments RBC (test code = RBC) 4.85 4.20-5.40 N [facility] PasoHtbymzyYMKOQCRDRV1484-11-81 06:52:00 Test Item Value Reference Range Interpretation Comments WBC (test code = WBC) 9.2 3.7-10.4 N [facility] PasoEhkluxzQPWAAVWYRT9978-04-58 06:52:00 Test Item Value Reference Range Interpretation Comments Hgb (test code = Hgb) 14.9 12.0-16.0 N [facility] PasoBhqpugwXPJUWMNQEG4687-74-43 06:52:00 Test Item Value Reference Range Interpretation Comments MCHC (test code = MCHC) 33.3 32.0-36.0 N [facility] PasoRkmazrhFMQIDXUMUW0089-74-78 06:52:00 Test Item Value Reference Range Interpretation Comments MCH (test code = MCH) 30.7 pg 27.0-31.0 N [facility] PasoVtywtuiDKNQJEMLDX2059-94-71 06:52:00 Test Item Value Reference Range Interpretation Comments Hct (test code = Hct) 44.9 36.0-48.0 N [facility] PasoAkospfvISHAUNYDAU0049-88-37 06:52:00 Test Item Value Reference Range Interpretation Comments MCV (test code = MCV) 92.4 81.0-99.0 N [facility] PasoOzvgwreAGWQEBISJH2525-90-39 06:52:00 Test Item Value Reference Range Interpretation Comments RDW (test code = RDW) 14.5 11.5-14.5 N [facility] PasoDujhyqwUNAYOQGZJZ8027-45-90 06:52:00 Test Item Value Reference Range Interpretation Comments Platelet (test code = Platelet) 213 133-450 N [facility] PasoTkxsziqOOCJLKWEHZ3627-49-73 06:52:00 Test Item Value Reference Range Interpretation Comments MPV (test code = MPV) 9.5 7.4-10.4 N [facility] PasoCwbdhfvEHZSMQTWWN5566-03-56 06:52:00 Test Item Value Reference Range Interpretation Comments Segs-Bands # (test code = Segs-Bands #) 7.7 1.5-8.1 N [facility] PasoRayvuxvRRGTZXXIFD2650-63-23 06:52:00 Test Item Value Reference Range Interpretation Comments Basophils (test code = 0.3 See_Comment N [Aut omated message] The Basophils) system which ge nerated this result tra nsmitted reference range : <=1.0. The reference r leatha was not used to int erpret this result as normal/abnormal . [facility] PasoFqhpnoiLNMNXMZFDB5942-40-39 06:52:00 Test Item Value Reference Range Interpretation Comments Monocytes # (test code 0.6 See_Comment N [Aut omated message] The = Monocytes #) system which generated this result tra nsmitted reference range : <=0.8. The reference r leatha was not used to int erpret this result as normal/abnormal . [facility] PasoIspwuthUAKURDLIYE5398-37-12 06:52:00 Test Item Value Reference Range Interpretation Comments Lymphocytes # (test code = Lymphocytes 0.9 1.0-5.5 L #) [facility] PasoZctqjdsKGAKSOQMNF1061-81-14 06:52:00 Test Item Value Reference Range Interpretation Comments Lymphocytes (test code = Lymphocytes) 9.5 20.0-40.0 L [facility] PasoIkhhtgrZRYRFKBLKP7460-60-54 06:52:00 Test Item Value Reference Range Interpretation Comments Segs (test code = Segs) 84.1 45.0-75.0 H [facility] PasoKgdzzoeSGDILGCCFX5147-21-49 06:52:00 Test Item Value Reference Range Interpretation Comments Monocytes (test code = Monocytes) 6.0 2.0-12.0 N [facility] PasoYpfudceDNOQJULWXV1596-17-66 06:52:00 Test Item Value Reference Range Interpretation Comments Eosinophils (test code = 0.1 See_Comment N [A utomated message] The Eosinophils) system which ge nerated this result tra nsmitted reference range : <=4.0. The reference r leatha was not used to int erpret this result as normal/abnormal . [facility] HospitalAkvlmbwYQXOQHFMF8455-82-57 06:52:00 Test Item Value Reference Range Interpretation Comments Phosphorus (test code = Phosphorus) 3.5 2.5-4.5 N [facility] HospitalOjljaeoHKWCAIHXG7563-60-57 06:52:00 Test Item Value Reference Range Interpretation Comments AGAP (test code = AGAP) 13.4 10.0-20.0 N [facility] HospitalUcefmkpZATOTINGY1536-90-36 06:52:00 Test Item Value Reference Range Interpretation Comments Glucose Lvl (test code = Glucose Lvl) 181 70-99 H [facility] HospitalUvrbkgeIHDEOGZJJ4399-61-94 06:52:00 Test Item Value Reference Range Interpretation Comments Creatinine Lvl (test code = Creatinine 0.9 0.5-1.4 N Lvl) [facility] HospitalCegsbuzSLZXMVFUY1752-17-47 06:52:00 Test Item Value Reference Range Interpretation Comments BUN (test code = BUN) 17 7-22 N [facility] HospitalKlcxssmKMBPWPOIE8440-69-12 06:52:00 Test Item Value Reference Range Interpretation Comments Sodium Lvl (test code = Sodium Lvl) 140 135-145 N [facility] HospitalAtddadrLYPHQJENJ3297-84-43 06:52:00 Test Item Value Reference Range Interpretation Comments Chloride Lvl (test code = Chloride Lvl) 105 95-109 N [facility] HospitalVrpmmxwNDFAYPLZK2934-05-49 06:52:00 Test Item Value Reference Range Interpretation Comments Calcium Lvl (test code = Calcium Lvl) 9.7 8.5-10.5 N [facility] HospitalZhnuasmLFZPXVEGY1285-06-21 06:52:00 Test Item Value Reference Range Interpretation Comments Potassium Lvl (test code = Potassium 4.4 3.5-5.1 N Lvl) [facility] HospitalCtlgwhoHHAGBGILE3725-50-76 06:52:00 Test Item Value Reference Range Interpretation Comments CO2 (test code = CO2) 26 24-32 N [facility] HospitalKinecyoRGLOKZKBM5348-67-96 06:52:00 Test Item Value Reference Range Interpretation Comments eGFR (test code = eGFR) 65 [facility] HospitalPlyksioKCIDSZVQS2709-52-08 06:52:00 Test Item Value Reference Range Interpretation Comments Magnesium Lvl (test code = Magnesium 1.5 1.8-2.4 L Lvl) [facility] PasoVdytmzpXKYITVDGTY2349-55-50 06:52:00 Test Item Value Reference Range Interpretation Comments RBC (test code = RBC) 4.85 4.20-5.40 N [facility] PasoVpfoycdBHIMGKYZKJ8754-49-17 06:52:00 Test Item Value Reference Range Interpretation Comments WBC (test code = WBC) 9.2 3.7-10.4 N [facility] PasoHqcrteuKWBFCWZKVL8922-96-40 06:52:00 Test Item Value Reference Range Interpretation Comments Hgb (test code = Hgb) 14.9 12.0-16.0 N [facility] PasoTevfkccGPVBRQKXUE9940-26-70 06:52:00 Test Item Value Reference Range Interpretation Comments MCHC (test code = MCHC) 33.3 32.0-36.0 N [facility] PasoZezfangCWOZLVYMMZ7201-34-72 06:52:00 Test Item Value Reference Range Interpretation Comments MCH (test code = MCH) 30.7 pg 27.0-31.0 N [facility] PasoPdmrjmgYLFIASKUTW1754-19-94 06:52:00 Test Item Value Reference Range Interpretation Comments Hct (test code = Hct) 44.9 36.0-48.0 N [facility] PasoJphapvlFMWBTMYLEN4387-82-11 06:52:00 Test Item Value Reference Range Interpretation Comments MCV (test code = MCV) 92.4 81.0-99.0 N [facility] PasoKldddxbZEXXVJSYQH7353-31-28 06:52:00 Test Item Value Reference Range Interpretation Comments RDW (test code = RDW) 14.5 11.5-14.5 N [facility] PasoNaxjlitOAUVLMQHGK0605-39-01 06:52:00 Test Item Value Reference Range Interpretation Comments Platelet (test code = Platelet) 213 133-450 N [facility] PasoMsmllusKTVPHVXNQR3051-41-61 06:52:00 Test Item Value Reference Range Interpretation Comments MPV (test code = MPV) 9.5 7.4-10.4 N [facility] PasoVudakuoUTLMEODXOB9881-51-40 06:52:00 Test Item Value Reference Range Interpretation Comments Segs-Bands # (test code = Segs-Bands #) 7.7 1.5-8.1 N [facility] PasoThiopxtIYFOOHOCRB9396-93-78 06:52:00 Test Item Value Reference Range Interpretation Comments Basophils (test code = 0.3 See_Comment N [Aut omated message] The Basophils) system which ge nerated this result tra nsmitted reference range : <=1.0. The reference r leatha was not used to int erpret this result as normal/abnormal . [facility] PasoNayoiscVYRWHQVETV5329-63-30 06:52:00 Test Item Value Reference Range Interpretation Comments Monocytes # (test code 0.6 See_Comment N [Aut omated message] The = Monocytes #) system which generated this result tra nsmitted reference range : <=0.8. The reference r leatha was not used to int erpret this result as normal/abnormal . [facility] PasoBmcexmjSSXFFVZOAZ5953-13-52 06:52:00 Test Item Value Reference Range Interpretation Comments Lymphocytes # (test code = Lymphocytes 0.9 1.0-5.5 L #) [facility] PasoWepwkirJMKZQFZTNS6426-31-63 06:52:00 Test Item Value Reference Range Interpretation Comments Lymphocytes (test code = Lymphocytes) 9.5 20.0-40.0 L [facility] PasoOpwhvpcLINCIBTAVA1963-65-83 06:52:00 Test Item Value Reference Range Interpretation Comments Segs (test code = Segs) 84.1 45.0-75.0 H [facility] PasoOohaukcWQFBRNGNWX6903-24-93 06:52:00 Test Item Value Reference Range Interpretation Comments Monocytes (test code = Monocytes) 6.0 2.0-12.0 N [facility] PasoVhtxfwlDUQCUKATKN8281-97-51 06:52:00 Test Item Value Reference Range Interpretation Comments Eosinophils (test code = 0.1 See_Comment N [A utomated message] The Eosinophils) system which ge nerated this result tra nsmitted reference range : <=4.0. The reference r leatha was not used to int erpret this result as normal/abnormal . [facility] HospitalEwttwjlVRPUUECLR2009-16-42 06:52:00 Test Item Value Reference Range Interpretation Comments Phosphorus (test code = Phosphorus) 3.5 2.5-4.5 N [facility] HospitalQwezsmzPRVQRDPMT1597-99-72 06:52:00 Test Item Value Reference Range Interpretation Comments AGAP (test code = AGAP) 13.4 10.0-20.0 N [facility] HospitalUscxzusYNQLYLTDI4278-03-02 06:52:00 Test Item Value Reference Range Interpretation Comments Glucose Lvl (test code = Glucose Lvl) 181 70-99 H [facility] HospitalShfwycpMTCDIQTLZ7852-27-89 06:52:00 Test Item Value Reference Range Interpretation Comments Creatinine Lvl (test code = Creatinine 0.9 0.5-1.4 N Lvl) [facility] HospitalDefypmoCGRPQSJLH5899-16-06 06:52:00 Test Item Value Reference Range Interpretation Comments BUN (test code = BUN) 17 7-22 N [facility] HospitalYojaifqYWPXQETCV5820-23-54 06:52:00 Test Item Value Reference Range Interpretation Comments Sodium Lvl (test code = Sodium Lvl) 140 135-145 N [facility] HospitalAvlnbqjODURJUARW6792-95-20 06:52:00 Test Item Value Reference Range Interpretation Comments Chloride Lvl (test code = Chloride Lvl) 105 95-109 N [facility] HospitalVkaztaiOPCWSRNDV5903-85-79 06:52:00 Test Item Value Reference Range Interpretation Comments Calcium Lvl (test code = Calcium Lvl) 9.7 8.5-10.5 N [facility] HospitalAwrqclqPDJOGZFQO1736-07-35 06:52:00 Test Item Value Reference Range Interpretation Comments Potassium Lvl (test code = Potassium 4.4 3.5-5.1 N Lvl) [facility] HospitalQmjlxyhHZGSVVYDV5560-16-78 06:52:00 Test Item Value Reference Range Interpretation Comments CO2 (test code = CO2) 26 24-32 N [facility] HospitalPrjzfyqJAXOXGXZH1356-21-11 06:52:00 Test Item Value Reference Range Interpretation Comments eGFR (test code = eGFR) 65 [facility] HospitalZvwigvgAMQLROLDS1231-76-36 06:52:00 Test Item Value Reference Range Interpretation Comments Magnesium Lvl (test code = Magnesium 1.5 1.8-2.4 L Lvl) [facility] PasoFlwhcyuJPMFWVCPRG1992-04-70 06:52:00 Test Item Value Reference Range Interpretation Comments RBC (test code = RBC) 4.85 4.20-5.40 N [facility] PasoGmxiejcPDQFJLQFWN9903-11-22 06:52:00 Test Item Value Reference Range Interpretation Comments WBC (test code = WBC) 9.2 3.7-10.4 N [facility] PasoVchaoivFKTRDTMOKU3922-97-90 06:52:00 Test Item Value Reference Range Interpretation Comments Hgb (test code = Hgb) 14.9 12.0-16.0 N [facility] PasoInezrecGJSYUUMAIA9216-65-71 06:52:00 Test Item Value Reference Range Interpretation Comments MCHC (test code = MCHC) 33.3 32.0-36.0 N [facility] PasoDeubriwMPSITKZUEI0481-21-86 06:52:00 Test Item Value Reference Range Interpretation Comments MCH (test code = MCH) 30.7 pg 27.0-31.0 N [facility] PasoFxmfgdjKQZMLPTRCP9694-05-64 06:52:00 Test Item Value Reference Range Interpretation Comments Hct (test code = Hct) 44.9 36.0-48.0 N [facility] PasoPlmxyhhNBEKZZHPFN7884-67-19 06:52:00 Test Item Value Reference Range Interpretation Comments MCV (test code = MCV) 92.4 81.0-99.0 N [facility] PasoGzftsjmKJTRLUPOEJ1547-79-27 06:52:00 Test Item Value Reference Range Interpretation Comments RDW (test code = RDW) 14.5 11.5-14.5 N [facility] PasoNxfogzjEFDHGYBXXD4614-45-95 06:52:00 Test Item Value Reference Range Interpretation Comments Platelet (test code = Platelet) 213 133-450 N [facility] PasoPjskimvSVIUOLZMGF7428-23-35 06:52:00 Test Item Value Reference Range Interpretation Comments MPV (test code = MPV) 9.5 7.4-10.4 N [facility] PasoAmesofuEDROOQDMFM9834-40-06 06:52:00 Test Item Value Reference Range Interpretation Comments Segs-Bands # (test code = Segs-Bands #) 7.7 1.5-8.1 N [facility] PasoXmnkmoaDXOHDETGBA2127-45-33 06:52:00 Test Item Value Reference Range Interpretation Comments Basophils (test code = Basophils) 0.3 <=1.0 N [facility] PasoJebrxoiJPSARGZRLC1514-38-71 06:52:00 Test Item Value Reference Range Interpretation Comments Monocytes # (test code = Monocytes #) 0.6 <=0.8 N [facility] PasoIpfytpaJQSRIPAVZK0199-74-46 06:52:00 Test Item Value Reference Range Interpretation Comments Lymphocytes # (test code = Lymphocytes 0.9 1.0-5.5 L #) [facility] PasoCpslbimEJOLDUZXDN2048-73-03 06:52:00 Test Item Value Reference Range Interpretation Comments Lymphocytes (test code = Lymphocytes) 9.5 20.0-40.0 L [facility] PasoWremcarXLMADFJEPB0866-56-26 06:52:00 Test Item Value Reference Range Interpretation Comments Segs (test code = Segs) 84.1 45.0-75.0 H [facility] PasoXzccudqMUJITVOHLG8141-24-69 06:52:00 Test Item Value Reference Range Interpretation Comments Monocytes (test code = Monocytes) 6.0 2.0-12.0 N [facility] PasoVjewffhOQYMZLKMDS2044-41-68 06:52:00 Test Item Value Reference Range Interpretation Comments Eosinophils (test code = Eosinophils) 0.1 <=4.0 N [facility] HospitalTwgnrymGHSWDJFVT9679-26-02 06:52:00 Test Item Value Reference Range Interpretation Comments Phosphorus (test code = Phosphorus) 3.5 2.5-4.5 N [facility] HospitalMhbetxmAYWDUWGHR1568-67-45 06:52:00 Test Item Value Reference Range Interpretation Comments AGAP (test code = AGAP) 13.4 10.0-20.0 N [facility] HospitalHyclfutLFNWROPKX7167-39-13 06:52:00 Test Item Value Reference Range Interpretation Comments Glucose Lvl (test code = Glucose Lvl) 181 70-99 H [facility] HospitalLyyqdvmDVALAOAUN1920-92-02 06:52:00 Test Item Value Reference Range Interpretation Comments Creatinine Lvl (test code = Creatinine 0.9 0.5-1.4 N Lvl) [facility] HospitalIfrbjebEJRBOAVOV0221-70-03 06:52:00 Test Item Value Reference Range Interpretation Comments BUN (test code = BUN) 17 7-22 N [facility] HospitalKoifuvvTMSLFEZDP6048-46-50 06:52:00 Test Item Value Reference Range Interpretation Comments Sodium Lvl (test code = Sodium Lvl) 140 135-145 N [facility] HospitalIuardygHFKWNVPUN9202-44-60 06:52:00 Test Item Value Reference Range Interpretation Comments Chloride Lvl (test code = Chloride Lvl) 105 95-109 N [facility] HospitalDcgscinSMRUILKAS9435-30-20 06:52:00 Test Item Value Reference Range Interpretation Comments Calcium Lvl (test code = Calcium Lvl) 9.7 8.5-10.5 N [facility] HospitalPvudrqzJHPJGIFDQ4719-36-45 06:52:00 Test Item Value Reference Range Interpretation Comments Potassium Lvl (test code = Potassium 4.4 3.5-5.1 N Lvl) [facility] HospitalDgdefeuVLNMCWJEP8566-69-54 06:52:00 Test Item Value Reference Range Interpretation Comments CO2 (test code = CO2) 26 24-32 N [facility] HospitalKxpoegaWQNKZWVAL0212-42-00 06:52:00 Test Item Value Reference Range Interpretation Comments eGFR (test code = eGFR) 65 [facility] HospitalMaujjazDNCXDKSCH2700-55-65 06:52:00 Test Item Value Reference Range Interpretation Comments Magnesium Lvl (test code = Magnesium 1.5 1.8-2.4 L Lvl) [facility] PasoRwgpwovNVNFJZQMCF0477-83-10 06:52:00 Test Item Value Reference Range Interpretation Comments RBC (test code = RBC) 4.85 4.20-5.40 N [facility] PasoXbsoxdtRALCDVDWYR1468-39-68 06:52:00 Test Item Value Reference Range Interpretation Comments WBC (test code = WBC) 9.2 3.7-10.4 N [facility] PasoUyffusoACXMOFIOGU5105-16-04 06:52:00 Test Item Value Reference Range Interpretation Comments Hgb (test code = Hgb) 14.9 12.0-16.0 N [facility] PasoNsgwopeDKNLOHLOSD1736-86-49 06:52:00 Test Item Value Reference Range Interpretation Comments MCHC (test code = MCHC) 33.3 32.0-36.0 N [facility] PasoBmwnmaaWICEJVLYDC2799-80-36 06:52:00 Test Item Value Reference Range Interpretation Comments MCH (test code = MCH) 30.7 pg 27.0-31.0 N [facility] PasoCgopekyHVXUMIWXJP3624-79-94 06:52:00 Test Item Value Reference Range Interpretation Comments Hct (test code = Hct) 44.9 36.0-48.0 N [facility] PasoQhnpzexTRLGSULYIM9048-25-24 06:52:00 Test Item Value Reference Range Interpretation Comments MCV (test code = MCV) 92.4 81.0-99.0 N [facility] PasoTgvpqfnHPTALPAENK0317-35-54 06:52:00 Test Item Value Reference Range Interpretation Comments RDW (test code = RDW) 14.5 11.5-14.5 N [facility] PasoJozwmxsPAPZBKEVSG5733-97-50 06:52:00 Test Item Value Reference Range Interpretation Comments Platelet (test code = Platelet) 213 133-450 N [facility] PasoDmhehdkCEVZLYBEMS1050-95-52 06:52:00 Test Item Value Reference Range Interpretation Comments MPV (test code = MPV) 9.5 7.4-10.4 N [facility] PasoZvflankKMCUKFANRE5840-55-91 06:52:00 Test Item Value Reference Range Interpretation Comments Segs-Bands # (test code = Segs-Bands #) 7.7 1.5-8.1 N [facility] PasoYnjdewsAUWDORELHD2641-15-06 06:52:00 Test Item Value Reference Range Interpretation Comments Basophils (test code = 0.3 See_Comment N [Aut omated message] The Basophils) system which ge nerated this result tra nsmitted reference range : <=1.0. The reference r leatha was not used to int erpret this result as normal/abnormal . [facility] HospitalSzjlmxdNDRKJWHGX1610-24-88 06:52:00 Test Item Value Reference Range Interpretation Comments Phosphorus (test code = Phosphorus) 3.5 2.5-4.5 N [facility] HospitalNlsoolxDTJTRMLFT8708-83-62 06:52:00 Test Item Value Reference Range Interpretation Comments AGAP (test code = AGAP) 13.4 10.0-20.0 N [facility] HospitalEaknnvaBUBJOFOIM0122-14-39 06:52:00 Test Item Value Reference Range Interpretation Comments Glucose Lvl (test code = Glucose Lvl) 181 70-99 H [facility] HospitalGyeaqesQUIFFMQZL9000-11-52 06:52:00 Test Item Value Reference Range Interpretation Comments Creatinine Lvl (test code = Creatinine 0.9 0.5-1.4 N Lvl) [facility] HospitalWfntvnzZDQDCEURE6481-20-78 06:52:00 Test Item Value Reference Range Interpretation Comments BUN (test code = BUN) 17 7-22 N [facility] HospitalMpqghtdQXELPVKJI6944-14-08 06:52:00 Test Item Value Reference Range Interpretation Comments Sodium Lvl (test code = Sodium Lvl) 140 135-145 N [facility] HospitalIqzamthMYBVTUQLJ4676-68-28 06:52:00 Test Item Value Reference Range Interpretation Comments Chloride Lvl (test code = Chloride Lvl) 105 95-109 N [facility] HospitalIsqiujgHSTOLXBPR3847-06-21 06:52:00 Test Item Value Reference Range Interpretation Comments Calcium Lvl (test code = Calcium Lvl) 9.7 8.5-10.5 N [facility] HospitalSrjpcnnOJWKRYCSN9430-88-07 06:52:00 Test Item Value Reference Range Interpretation Comments Potassium Lvl (test code = Potassium 4.4 3.5-5.1 N Lvl) [facility] HospitalDcoxuowUAQRTEKTK1949-08-38 06:52:00 Test Item Value Reference Range Interpretation Comments CO2 (test code = CO2) 26 24-32 N [facility] PasoSsbvpscFOEWWHIDVV7102-33-54 06:52:00 Test Item Value Reference Range Interpretation Comments Monocytes # (test code 0.6 See_Comment N [Aut omated message] The = Monocytes #) system which generated this result tra nsmitted reference range : <=0.8. The reference r leatha was not used to int erpret this result as normal/abnormal . [facility] HospitalQunwnezUQLBXXAHQ0914-67-52 06:52:00 Test Item Value Reference Range Interpretation Comments eGFR (test code = eGFR) 65 [facility]XdzqbxyPNLFWZPKY3356-13-94 06:52:00 Test Item Value Reference Range Interpretation Comments Magnesium Lvl (test code = Magnesium 1.5 1.8-2.4 L Lvl) [facility] PasoXqtxeqdSPJGHRPFXN5223-52-86 06:52:00 Test Item Value Reference Range Interpretation Comments RBC (test code = RBC) 4.85 4.20-5.40 N [facility] PasoIqhmlhxUWFTJZQJNG5666-27-50 06:52:00 Test Item Value Reference Range Interpretation Comments WBC (test code = WBC) 9.2 3.7-10.4 N [facility] PasoMompzfiUSAFEWPPUQ7527-80-02 06:52:00 Test Item Value Reference Range Interpretation Comments Hgb (test code = Hgb) 14.9 12.0-16.0 N [facility] [place]incZEUQZFWEJM5767-[place]35 06:52:00 Test Item Value Reference Range Interpretation Comments MCHC (test code = MCHC) 33.3 32.0-36.0 N [facility] [place]TjxjkbcYRKVDEAVUP3187-93-05 06:52:00 Test Item Value Reference Range Interpretation Comments MCH (test code = MCH) 30.7 pg 27.0-31.0 N [facility] PasoLjhygwhVDWWZBRLLE1795-18-42 06:52:00 Test Item Value Reference Range Interpretation Comments Hct (test code = Hct) 44.9 36.0-48.0 N [facility] PasoPzdebkwZPJVVCUGRM0873-34-88 06:52:00 Test Item Value Reference Range Interpretation Comments MCV (test code = MCV) 92.4 81.0-99.0 N [facility] PasoWmupzdvQXOJTVXHCT3742-58-48 06:52:00 Test Item Value Reference Range Interpretation Comments RDW (test code = RDW) 14.5 11.5-14.5 N [facility] PasoGmfbsamWMWBFQBIRI7299-77-26 06:52:00 Test Item Value Reference Range Interpretation Comments Lymphocytes # (test code = Lymphocytes 0.9 1.0-5.5 L #) [facility] PasoZdwqmcbOOOMYRITOK4197-65-07 06:52:00 Test Item Value Reference Range Interpretation Comments Platelet (test code = Platelet) 213 133-450 N [facility] PasoYloigbuELWFJMCWNF6990-93-41 06:52:00 Test Item Value Reference Range Interpretation Comments MPV (test code = MPV) 9.5 7.4-10.4 N [facility] PasoRbzurjaAVUYHSEMZH0228-12-67 06:52:00 Test Item Value Reference Range Interpretation Comments Segs-Bands # (test code = Segs-Bands #) 7.7 1.5-8.1 N [place] [address]-04-19 06:52:00 Test Item Value Reference Range Interpretation Comments Basophils (test code = Basophils) 0.3 <=1.0 N [facility] PasoEqcaxclFORXEANONW9707-31-57 06:52:00 Test Item Value Reference Range Interpretation Comments Monocytes # (test code = Monocytes #) 0.6 <=0.8 N [facility] [place]OwbwcykBNZRABQAJO6730-91-17 06:52:00 Test Item Value Reference Range Interpretation Comments Lymphocytes # (test code = Lymphocytes 0.9 1.0-5.5 L #) [facility] PasoAvvsfmcMRGRWMAYSM9999-62-85 06:52:00 Test Item Value Reference Range Interpretation Comments Lymphocytes (test code = Lymphocytes) 9.5 20.0-40.0 L [facility] PasoHvjmstxUVQONTXHYZ7458-66-88 06:52:00 Test Item Value Reference Range Interpretation Comments Segs (test code = Segs) 84.1 45.0-75.0 H [facility] PasoXudxhqnSDHNJBFZIB9367-54-26 06:52:00 Test Item Value Reference Range Interpretation Comments Monocytes (test code = Monocytes) 6.0 2.0-12.0 N [facility] PasoGefstqsPYGUKLGMMJ8195-63-99 06:52:00 Test Item Value Reference Range Interpretation Comments Eosinophils (test code = Eosinophils) 0.1 <=4.0 N [facility] [place]NsgnfbuBBWWFOSASJ9962-94-84 06:52:00 Test Item Value Reference Range Interpretation Comments Lymphocytes (test code = Lymphocytes) 9.5 20.0-40.0 L [facility] PasoCxlerhvAXSSTWZNLH3753-24-21 06:52:00 Test Item Value Reference Range Interpretation Comments Segs (test code = Segs) 84.1 45.0-75.0 H [facility] PasoMbylndpVTNDKPTVYL7083-96-34 06:52:00 Test Item Value Reference Range Interpretation Comments Monocytes (test code = Monocytes) 6.0 2.0-12.0 N [facility] PasoTznhiziALCLDHEABP2444-05-55 06:52:00 Test Item Value Reference Range Interpretation Comments Eosinophils (test code = 0.1 See_Comment N [A utomated message] The Eosinophils) system which ge nerated this result tra nsmitted reference range : <=4.0. The reference r leatha was not used to int erpret this result as normal/abnormal . [facility]QfdhtgjKQCWRCUUH3649-83-64 06:52:00 Test Item Value Reference Range Interpretation Comments Phosphorus (test code = Phosphorus) 3.5 2.5-4.5 N [facility] HospitalDapfejrVGVEEGXGR6192-33-54 06:52:00 Test Item Value Reference Range Interpretation Comments AGAP (test code = AGAP) 13.4 10.0-20.0 N [facility] HospitalWxtllttVVQOLPGGS9206-49-46 06:52:00 Test Item Value Reference Range Interpretation Comments Glucose Lvl (test code = Glucose Lvl) 181 70-99 H [facility] HospitalTzbasucKDKVYCTMQ9706-41-75 06:52:00 Test Item Value Reference Range Interpretation Comments Creatinine Lvl (test code = Creatinine 0.9 0.5-1.4 N Lvl) [facility] HospitalModhmkhHGXFPYHZR0852-44-97 06:52:00 Test Item Value Reference Range Interpretation Comments BUN (test code = BUN) 17 7-22 N [facility] HospitalBgjqiuzZBUUNTWED8705-74-68 06:52:00 Test Item Value Reference Range Interpretation Comments Sodium Lvl (test code = Sodium Lvl) 140 135-145 N [facility] HospitalXbnseflIDVARHFUX6467-01-60 06:52:00 Test Item Value Reference Range Interpretation Comments Chloride Lvl (test code = Chloride Lvl) 105 95-109 N [facility] HospitalBsmdnxiKDKRJJKBJ8917-68-91 06:52:00 Test Item Value Reference Range Interpretation Comments Calcium Lvl (test code = Calcium Lvl) 9.7 8.5-10.5 N [facility] HospitalEnhjmalHMLHZOAIH8522-73-29 06:52:00 Test Item Value Reference Range Interpretation Comments Potassium Lvl (test code = Potassium 4.4 3.5-5.1 N Lvl) [facility] HospitalIpaduviTLTIMQTUT8014-20-76 06:52:00 Test Item Value Reference Range Interpretation Comments CO2 (test code = CO2) 26 24-32 N [facility] HospitalMztnxnoTTJXKRQUA8012-61-64 06:52:00 Test Item Value Reference Range Interpretation Comments eGFR (test code = eGFR) 65 [facility] HospitalTsrdsqrBAKUMMNJT5251-90-39 06:52:00 Test Item Value Reference Range Interpretation Comments Magnesium Lvl (test code = Magnesium 1.5 1.8-2.4 L Lvl) [facility] PasoIcuvqepAVJKPQIKII7684-26-07 06:52:00 Test Item Value Reference Range Interpretation Comments RBC (test code = RBC) 4.85 4.20-5.40 N [facility] PasoNgvzcatMRVILOVTZS7081-55-64 06:52:00 Test Item Value Reference Range Interpretation Comments WBC (test code = WBC) 9.2 3.7-10.4 N [facility] PasoKovcwlhOGITBEAMFT6519-69-16 06:52:00 Test Item Value Reference Range Interpretation Comments Hgb (test code = Hgb) 14.9 12.0-16.0 N [facility] PasoNbkvpznDUVPDHRPYM9250-02-09 06:52:00 Test Item Value Reference Range Interpretation Comments MCHC (test code = MCHC) 33.3 32.0-36.0 N [facility] PasoSsjrssxBZZPLVMHSD9710-96-72 06:52:00 Test Item Value Reference Range Interpretation Comments MCH (test code = MCH) 30.7 pg 27.0-31.0 N [facility] PasoTrrtefvZJBTAATKKJ4873-47-68 06:52:00 Test Item Value Reference Range Interpretation Comments Hct (test code = Hct) 44.9 36.0-48.0 N [facility] PasoYvzsjsrOBSNBQCLLC8831-12-23 06:52:00 Test Item Value Reference Range Interpretation Comments MCV (test code = MCV) 92.4 81.0-99.0 N [facility] PasoHgvdzidPLFEZQNDCH4623-98-17 06:52:00 Test Item Value Reference Range Interpretation Comments RDW (test code = RDW) 14.5 11.5-14.5 N [facility] [place]PnsfwvtCCTPJJGKWV0515-67-77 06:52:00 Test Item Value Reference Range Interpretation Comments Platelet (test code = Platelet) 213 133-450 N [facility] PasoLzysnqwFFVUUEUFKK5712-25-31 06:52:00 Test Item Value Reference Range Interpretation Comments MPV (test code = MPV) 9.5 7.4-10.4 N [facility] PasoQgaboeeFYKPNRJRRF5838-18-99 06:52:00 Test Item Value Reference Range Interpretation Comments Segs-Bands # (test code = Segs-Bands #) 7.7 1.5-8.1 N [facility] PasoWfczxjiJLNSHQPPLX7939-59-49 06:52:00 Test Item Value Reference Range Interpretation Comments Basophils (test code = Basophils) 0.3 <=1.0 N [facility] PasoLyoxsotWCILEBVNUS1664-08-68 06:52:00 Test Item Value Reference Range Interpretation Comments Monocytes # (test code = Monocytes #) 0.6 <=0.8 N [facility] PasoBsyotxvIBKEKTCBFX6094-01-43 06:52:00 Test Item Value Reference Range Interpretation Comments Lymphocytes # (test code = Lymphocytes 0.9 1.0-5.5 L #) [facility] PasoSqfwnkaLLOYEJHMCN7449-31-28 06:52:00 Test Item Value Reference Range Interpretation Comments Lymphocytes (test code = Lymphocytes) 9.5 20.0-40.0 L [facility] PasoGxjzitxMDXTJCLHTV8314-83-36 06:52:00 Test Item Value Reference Range Interpretation Comments Segs (test code = Segs) 84.1 45.0-75.0 H [facility] PasoFducwmkYBZXCHZZXB3864-91-91 06:52:00 Test Item Value Reference Range Interpretation Comments Monocytes (test code = Monocytes) 6.0 2.0-12.0 N [facility] PasoYsknjwmETCIITRRXG5933-73-57 06:52:00 Test Item Value Reference Range Interpretation Comments Eosinophils (test code = Eosinophils) 0.1 <=4.0 N [facility] HospitalKdlvmgtTJDSMQDLO0215-35-53 06:52:00 Test Item Value Reference Range Interpretation Comments Phosphorus (test code = Phosphorus) 3.5 2.5-4.5 N [facility] HospitalLmlcedqQQIDWDRKT3926-21-35 06:52:00 Test Item Value Reference Range Interpretation Comments AGAP (test code = AGAP) 13.4 10.0-20.0 N [facility] HospitalKyprvocNKCZCAXOB9166-22-48 06:52:00 Test Item Value Reference Range Interpretation Comments Glucose Lvl (test code = Glucose Lvl) 181 70-99 H [facility] HospitalFtrannsDWPIATREE6938-96-94 06:52:00 Test Item Value Reference Range Interpretation Comments Creatinine Lvl (test code = Creatinine 0.9 0.5-1.4 N Lvl) [facility] HospitalDclsvezFJURRBQAJ4181-34-36 06:52:00 Test Item Value Reference Range Interpretation Comments BUN (test code = BUN) 17 7-22 N [facility] HospitalXybkkubYUKSAVYNJ1844-91-06 06:52:00 Test Item Value Reference Range Interpretation Comments Sodium Lvl (test code = Sodium Lvl) 140 135-145 N [facility] HospitalDzrcdmoPQTUNVRMQ5262-73-71 06:52:00 Test Item Value Reference Range Interpretation Comments Chloride Lvl (test code = Chloride Lvl) 105 95-109 N [facility] HospitalHfdaprwFDMBSGUSV0220-34-22 06:52:00 Test Item Value Reference Range Interpretation Comments Calcium Lvl (test code = Calcium Lvl) 9.7 8.5-10.5 N [facility] HospitalXvyygwiOTBNGEUTR1995-66-95 06:52:00 Test Item Value Reference Range Interpretation Comments Potassium Lvl (test code = Potassium 4.4 3.5-5.1 N Lvl) [facility] HospitalXfqatzxCVYAOSDES7564-01-75 06:52:00 Test Item Value Reference Range Interpretation Comments CO2 (test code = CO2) 26 24-32 N [facility] HospitalJlajvpcIJJZRYKGW0488-09-99 06:52:00 Test Item Value Reference Range Interpretation Comments eGFR (test code = eGFR) 65 [facility] HospitalCinwsnzDUNTJBHKQ7162-73-16 06:52:00 Test Item Value Reference Range Interpretation Comments Magnesium Lvl (test code = Magnesium 1.5 1.8-2.4 L Lvl) [facility] PasoOkgxynlLIGIVNZDRB0856-88-24 06:52:00 Test Item Value Reference Range Interpretation Comments RBC (test code = RBC) 4.85 4.20-5.40 N [facility] PasoDictyzfFXEERDRWAE0884-05-34 06:52:00 Test Item Value Reference Range Interpretation Comments WBC (test code = WBC) 9.2 3.7-10.4 N [facility] PasoThpazwyTNWUUJLHNV1170-00-52 06:52:00 Test Item Value Reference Range Interpretation Comments Hgb (test code = Hgb) 14.9 12.0-16.0 N [facility] PasoWwubvffLJSAILFRYJ8077-84-32 06:52:00 Test Item Value Reference Range Interpretation Comments MCHC (test code = MCHC) 33.3 32.0-36.0 N [facility] PasoPwnjlbhRMFXZWBBEN3508-69-43 06:52:00 Test Item Value Reference Range Interpretation Comments MCH (test code = MCH) 30.7 pg 27.0-31.0 N [facility] PasoWjkcnnfZCZDYDJYGM8338-72-25 06:52:00 Test Item Value Reference Range Interpretation Comments Hct (test code = Hct) 44.9 36.0-48.0 N [facility] PasoLauibuhJMQICWTAMH4739-73-41 06:52:00 Test Item Value Reference Range Interpretation Comments MCV (test code = MCV) 92.4 81.0-99.0 N [facility] PasoUwsldyuNHBWDDLKER2831-51-65 06:52:00 Test Item Value Reference Range Interpretation Comments RDW (test code = RDW) 14.5 11.5-14.5 N [facility] PasoFjzthklYANLAOMSCC1367-28-28 06:52:00 Test Item Value Reference Range Interpretation Comments Platelet (test code = Platelet) 213 133-450 N [facility] PasoTvlodoaHPLJGHGUYP5042-28-38 06:52:00 Test Item Value Reference Range Interpretation Comments MPV (test code = MPV) 9.5 7.4-10.4 N [facility] PasoLkwvisiLRQUTBVBEN3436-50-34 06:52:00 Test Item Value Reference Range Interpretation Comments Segs-Bands # (test code = Segs-Bands #) 7.7 1.5-8.1 N [facility] PasoIgerbymBLWRMIICVL2489-05-49 06:52:00 Test Item Value Reference Range Interpretation Comments Basophils (test code = Basophils) 0.3 <=1.0 N [facility] PasoUezadztIMZJCKOXHC6638-58-12 06:52:00 Test Item Value Reference Range Interpretation Comments Monocytes # (test code = Monocytes #) 0.6 <=0.8 N [facility] PasoFyiocyvVCEGVFJKUF5989-49-70 06:52:00 Test Item Value Reference Range Interpretation Comments Lymphocytes # (test code = Lymphocytes 0.9 1.0-5.5 L #) [facility] PasoRrqrnsuYOHVURQNVH8502-64-84 06:52:00 Test Item Value Reference Range Interpretation Comments Lymphocytes (test code = Lymphocytes) 9.5 20.0-40.0 L [facility] PasoUbwlxsqRVJWTUCQIF5179-35-13 06:52:00 Test Item Value Reference Range Interpretation Comments Segs (test code = Segs) 84.1 45.0-75.0 H [facility] PasoXquooiuJUMPRSFGMD5040-43-55 06:52:00 Test Item Value Reference Range Interpretation Comments Monocytes (test code = Monocytes) 6.0 2.0-12.0 N [facility] PasoDpisrzwABBDDQKBQX2235-66-70 06:52:00 Test Item Value Reference Range Interpretation Comments Eosinophils (test code = Eosinophils) 0.1 <=4.0 N [facility] HospitalRmeljlnEAFCEIIWD4648-71-87 06:52:00 Test Item Value Reference Range Interpretation Comments Phosphorus (test code = Phosphorus) 3.5 2.5-4.5 N [facility] HospitalFqpazcwWRSMGRJVG9782-19-41 06:52:00 Test Item Value Reference Range Interpretation Comments AGAP (test code = AGAP) 13.4 10.0-20.0 N [facility] HospitalSctwguyZMIAQXXPY8266-86-66 06:52:00 Test Item Value Reference Range Interpretation Comments Glucose Lvl (test code = Glucose Lvl) 181 70-99 H [facility] HospitalPlffrhbXFMDWBINS5681-85-55 06:52:00 Test Item Value Reference Range Interpretation Comments Creatinine Lvl (test code = Creatinine 0.9 0.5-1.4 N Lvl) [facility] HospitalLxzguauHHQPOKENF0822-81-63 06:52:00 Test Item Value Reference Range Interpretation Comments BUN (test code = BUN) 17 7-22 N [facility] HospitalLigusddQZQRQPZUX3076-15-62 06:52:00 Test Item Value Reference Range Interpretation Comments Sodium Lvl (test code = Sodium Lvl) 140 135-145 N [facility] HospitalTytpcidHMIVAPVNL7828-20-26 06:52:00 Test Item Value Reference Range Interpretation Comments Chloride Lvl (test code = Chloride Lvl) 105 95-109 N [facility] HospitalMadcxtmBDRSWPATJ3709-41-38 06:52:00 Test Item Value Reference Range Interpretation Comments Calcium Lvl (test code = Calcium Lvl) 9.7 8.5-10.5 N [facility] HospitalAwcuagnOHJSFYTTY6839-36-96 06:52:00 Test Item Value Reference Range Interpretation Comments Potassium Lvl (test code = Potassium 4.4 3.5-5.1 N Lvl) [facility] HospitalJxrdptyRPELDEGWC6470-21-18 06:52:00 Test Item Value Reference Range Interpretation Comments CO2 (test code = CO2) 26 24-32 N [facility] HospitalPplwhadDVQMNAIXI0307-04-05 06:52:00 Test Item Value Reference Range Interpretation Comments eGFR (test code = eGFR) 65 [facility] HospitalYzpuubsCSOVTHWSV6502-19-55 06:52:00 Test Item Value Reference Range Interpretation Comments Magnesium Lvl (test code = Magnesium 1.5 1.8-2.4 L Lvl) [facility] PasoSbtrotyELLZMMQHRK0348-95-54 06:52:00 Test Item Value Reference Range Interpretation Comments RBC (test code = RBC) 4.85 4.20-5.40 N [facility] PasoWmjyvooNGKEDAYFWH7539-21-07 06:52:00 Test Item Value Reference Range Interpretation Comments WBC (test code = WBC) 9.2 3.7-10.4 N [facility] PasoNrdtjttKCQOPJWFUA5890-58-50 06:52:00 Test Item Value Reference Range Interpretation Comments Hgb (test code = Hgb) 14.9 12.0-16.0 N [facility] PasoRcqihdlZNLDRLEDJL0661-63-16 06:52:00 Test Item Value Reference Range Interpretation Comments MCHC (test code = MCHC) 33.3 32.0-36.0 N [facility] PasoQedcljqZZTWZTJCGA1052-94-46 06:52:00 Test Item Value Reference Range Interpretation Comments MCH (test code = MCH) 30.7 pg 27.0-31.0 N [facility] PasoCkdcwtpZQDCNRFWET9367-96-78 06:52:00 Test Item Value Reference Range Interpretation Comments Hct (test code = Hct) 44.9 36.0-48.0 N [facility] PasoKwurdpoIRSXGCTVBK0570-73-37 06:52:00 Test Item Value Reference Range Interpretation Comments MCV (test code = MCV) 92.4 81.0-99.0 N [facility] PasoBxygrzvCZUKEYABBI1311-19-04 06:52:00 Test Item Value Reference Range Interpretation Comments RDW (test code = RDW) 14.5 11.5-14.5 N [facility] PasoQrkjtmkPKTQIECWXU6343-48-67 06:52:00 Test Item Value Reference Range Interpretation Comments Platelet (test code = Platelet) 213 133-450 N [facility] PasoWssdfeuGJGEIVGLXC9440-72-45 06:52:00 Test Item Value Reference Range Interpretation Comments MPV (test code = MPV) 9.5 7.4-10.4 N [facility] PasoLhfpoaeCWAYBZWMVL4939-86-69 06:52:00 Test Item Value Reference Range Interpretation Comments Segs-Bands # (test code = Segs-Bands #) 7.7 1.5-8.1 N [facility] PasoVjamrncTCCSXLFPHL6508-92-72 06:52:00 Test Item Value Reference Range Interpretation Comments Basophils (test code = Basophils) 0.3 <=1.0 N [facility] PasoGbptmzqYKDQXJTWMH6696-46-92 06:52:00 Test Item Value Reference Range Interpretation Comments Monocytes # (test code = Monocytes #) 0.6 <=0.8 N [facility] PasoHweotweUWNBHSSEJD3347-42-04 06:52:00 Test Item Value Reference Range Interpretation Comments Lymphocytes # (test code = Lymphocytes 0.9 1.0-5.5 L #) [facility] PasoTxiggerHJEIAFKSEZ7893-86-80 06:52:00 Test Item Value Reference Range Interpretation Comments Lymphocytes (test code = Lymphocytes) 9.5 20.0-40.0 L [facility] PasoWwsufyvALOTODJLWQ2165-29-69 06:52:00 Test Item Value Reference Range Interpretation Comments Segs (test code = Segs) 84.1 45.0-75.0 H [facility] PasoQvprmlxTZMFIHHYDE6958-25-91 06:52:00 Test Item Value Reference Range Interpretation Comments Monocytes (test code = Monocytes) 6.0 2.0-12.0 N [facility] PasoFqluelfKVXGZPFHIV0773-07-87 06:52:00 Test Item Value Reference Range Interpretation Comments Eosinophils (test code = Eosinophils) 0.1 <=4.0 N [facility] HospitalSyixdjrIEXYIJLWD1359-78-12 06:52:00 Test Item Value Reference Range Interpretation Comments Phosphorus (test code = Phosphorus) 3.5 2.5-4.5 N [facility] HospitalWiilqshQXFXDEPRK0605-45-03 06:52:00 Test Item Value Reference Range Interpretation Comments AGAP (test code = AGAP) 13.4 10.0-20.0 N [facility] HospitalVybxtmmGTUOPVLMX7805-92-75 06:52:00 Test Item Value Reference Range Interpretation Comments Glucose Lvl (test code = Glucose Lvl) 181 70-99 H [facility] HospitalLndllssVGBJLSVTA3445-64-29 06:52:00 Test Item Value Reference Range Interpretation Comments Creatinine Lvl (test code = Creatinine 0.9 0.5-1.4 N Lvl) [facility] HospitalEvzlkhiUETVSETNY2469-72-30 06:52:00 Test Item Value Reference Range Interpretation Comments BUN (test code = BUN) 17 7-22 N [facility] HospitalGgbhqscCPUMPUMEJ7131-84-20 06:52:00 Test Item Value Reference Range Interpretation Comments Sodium Lvl (test code = Sodium Lvl) 140 135-145 N [facility] HospitalIdurkweDGTFJRVNZ8662-86-42 06:52:00 Test Item Value Reference Range Interpretation Comments Chloride Lvl (test code = Chloride Lvl) 105 95-109 N [facility] HospitalBhkdvloUGKLQLSKV1168-08-01 06:52:00 Test Item Value Reference Range Interpretation Comments Calcium Lvl (test code = Calcium Lvl) 9.7 8.5-10.5 N [facility] HospitalErdwzerYTWSFAZBV5029-42-50 06:52:00 Test Item Value Reference Range Interpretation Comments Potassium Lvl (test code = Potassium 4.4 3.5-5.1 N Lvl) [facility] HospitalBmimuetNXUGGBTIJ4626-36-19 06:52:00 Test Item Value Reference Range Interpretation Comments CO2 (test code = CO2) 26 24-32 N [facility] HospitalScaszrtZJOKYRJXO3679-33-10 06:52:00 Test Item Value Reference Range Interpretation Comments eGFR (test code = eGFR) 65 [facility] HospitalUmckvabRNXKGZTUC8758-10-53 06:52:00 Test Item Value Reference Range Interpretation Comments Magnesium Lvl (test code = Magnesium 1.5 1.8-2.4 L Lvl) [facility] PasoObdggowUUFZUVUCAC6793-33-44 06:52:00 Test Item Value Reference Range Interpretation Comments RBC (test code = RBC) 4.85 4.20-5.40 N [facility] PasoXmjndkxVUPNYIGXNM9211-10-56 06:52:00 Test Item Value Reference Range Interpretation Comments WBC (test code = WBC) 9.2 3.7-10.4 N [facility] PasoMzkunpoTWMWZKXWMY6261-75-01 06:52:00 Test Item Value Reference Range Interpretation Comments Hgb (test code = Hgb) 14.9 12.0-16.0 N [facility] PasoYamsoxlGPQJHGEACD7086-96-38 06:52:00 Test Item Value Reference Range Interpretation Comments MCHC (test code = MCHC) 33.3 32.0-36.0 N [facility] PasoImtdtyaJFELBMGMMS4869-15-02 06:52:00 Test Item Value Reference Range Interpretation Comments MCH (test code = MCH) 30.7 pg 27.0-31.0 N [facility] PasoGklpohePRLMRSWHAE0622-20-41 06:52:00 Test Item Value Reference Range Interpretation Comments Hct (test code = Hct) 44.9 36.0-48.0 N [facility] PasoPvlzoksQVNBKPLCHP4151-61-99 06:52:00 Test Item Value Reference Range Interpretation Comments MCV (test code = MCV) 92.4 81.0-99.0 N [facility] PasoXhokgxmWBSFGEUDXJ0602-32-95 06:52:00 Test Item Value Reference Range Interpretation Comments RDW (test code = RDW) 14.5 11.5-14.5 N [facility] PasoJslcdzdWBGYGXNDCG6837-17-76 06:52:00 Test Item Value Reference Range Interpretation Comments Platelet (test code = Platelet) 213 133-450 N [facility] PasoErvjyhnWFADJDHWHK6700-77-16 06:52:00 Test Item Value Reference Range Interpretation Comments MPV (test code = MPV) 9.5 7.4-10.4 N [facility] PasoDrlizlsMIWKEZVYPL5127-07-31 06:52:00 Test Item Value Reference Range Interpretation Comments Segs-Bands # (test code = Segs-Bands #) 7.7 1.5-8.1 N [facility] PasoDmsodlaMIBXTVSODZ5345-26-40 06:52:00 Test Item Value Reference Range Interpretation Comments Basophils (test code = Basophils) 0.3 <=1.0 N [facility] PasoEokkwnsKYMTJECEPG1938-40-56 06:52:00 Test Item Value Reference Range Interpretation Comments Monocytes # (test code = Monocytes #) 0.6 <=0.8 N [facility] PasoPctxhyrPHNXWRMOGZ8575-30-59 06:52:00 Test Item Value Reference Range Interpretation Comments Lymphocytes # (test code = Lymphocytes 0.9 1.0-5.5 L #) [facility] PasoJswqpojSJRJXQMSRZ0810-22-37 06:52:00 Test Item Value Reference Range Interpretation Comments Lymphocytes (test code = Lymphocytes) 9.5 20.0-40.0 L [facility] PasoDbgexsvWUUGGRXNPO5077-84-18 06:52:00 Test Item Value Reference Range Interpretation Comments Segs (test code = Segs) 84.1 45.0-75.0 H [facility] PasoHslmbftOGGHMQMGGK9063-16-96 06:52:00 Test Item Value Reference Range Interpretation Comments Monocytes (test code = Monocytes) 6.0 2.0-12.0 N [facility] PasoQpoarnrMZHNAUMHHG5884-27-85 06:52:00 Test Item Value Reference Range Interpretation Comments Eosinophils (test code = Eosinophils) 0.1 <=4.0 N [facility]MhntwtsJQOKPDOLL9573-79-87 06:52:00 Test Item Value Reference Range Interpretation Comments Phosphorus (test code = Phosphorus) 3.5 2.5-4.5 N [facility] HospitalJgsojceWLRSFAIIQ2891-17-36 06:52:00 Test Item Value Reference Range Interpretation Comments AGAP (test code = AGAP) 13.4 10.0-20.0 N [facility] HospitalXpqtlgiTKKFSPEXK3903-69-42 06:52:00 Test Item Value Reference Range Interpretation Comments Glucose Lvl (test code = Glucose Lvl) 181 70-99 H [facility] HospitalEnnhnxuXKXBGAVHR0898-87-01 06:52:00 Test Item Value Reference Range Interpretation Comments Creatinine Lvl (test code = Creatinine 0.9 0.5-1.4 N Lvl) [facility] HospitalWtytdleHDISJDCXL8049-74-70 06:52:00 Test Item Value Reference Range Interpretation Comments BUN (test code = BUN) 17 7-22 N [facility] HospitalNruenyqKPZHZMSKK2986-22-93 06:52:00 Test Item Value Reference Range Interpretation Comments Sodium Lvl (test code = Sodium Lvl) 140 135-145 N [facility] HospitalOmegesvFIEWCDTAO9778-07-60 06:52:00 Test Item Value Reference Range Interpretation Comments Chloride Lvl (test code = Chloride Lvl) 105 95-109 N [facility] HospitalBcxqoivPXHRBSVYY6593-14-56 06:52:00 Test Item Value Reference Range Interpretation Comments Calcium Lvl (test code = Calcium Lvl) 9.7 8.5-10.5 N [facility] HospitalCzywfsvXBLEVSFYB6387-88-08 06:52:00 Test Item Value Reference Range Interpretation Comments Potassium Lvl (test code = Potassium 4.4 3.5-5.1 N Lvl) [facility] HospitalYkxzftdJMTUKRGHM8574-49-77 06:52:00 Test Item Value Reference Range Interpretation Comments CO2 (test code = CO2) 26 24-32 N [facility] HospitalYhljtcqFXZNWXFTO4237-58-49 06:52:00 Test Item Value Reference Range Interpretation Comments eGFR (test code = eGFR) 65 [facility] HospitalGglftymZHIKHMFBB4220-75-84 06:52:00 Test Item Value Reference Range Interpretation Comments Magnesium Lvl (test code = Magnesium 1.5 1.8-2.4 L Lvl) [facility]GfcrakbTXRRHGFPHO9558-18-17 06:52:00 Test Item Value Reference Range Interpretation Comments RBC (test code = RBC) 4.85 4.20-5.40 N [facility]KogbicdXXWNPVWXGN7769-35-03 06:52:00 Test Item Value Reference Range Interpretation Comments WBC (test code = WBC) 9.2 3.7-10.4 N [facility] PasoYshguzkFJRJJKYNPY7017-44-86 06:52:00 Test Item Value Reference Range Interpretation Comments Hgb (test code = Hgb) 14.9 12.0-16.0 N [facility] PasoOwgkruqEETIHRFIWU9724-37-86 06:52:00 Test Item Value Reference Range Interpretation Comments MCHC (test code = MCHC) 33.3 32.0-36.0 N [facility] PasoVdwdodyWOUMQWXUZD5234-49-38 06:52:00 Test Item Value Reference Range Interpretation Comments MCH (test code = MCH) 30.7 pg 27.0-31.0 N [facility] PasoEjefnsaTHWAOLLUJM9243-08-28 06:52:00 Test Item Value Reference Range Interpretation Comments Hct (test code = Hct) 44.9 36.0-48.0 N [facility] PasoRennxzuNGKRTIKDHG0510-96-58 06:52:00 Test Item Value Reference Range Interpretation Comments MCV (test code = MCV) 92.4 81.0-99.0 N [facility] PasoZvvuekbRIZUDUXGZX5022-53-41 06:52:00 Test Item Value Reference Range Interpretation Comments RDW (test code = RDW) 14.5 11.5-14.5 N [facility] PasoUjammdeUDIRUDVUCG9811-16-03 06:52:00 Test Item Value Reference Range Interpretation Comments Platelet (test code = Platelet) 213 133-450 N [facility] PasoAkpiyznPOULWHCGDE4241-55-26 06:52:00 Test Item Value Reference Range Interpretation Comments MPV (test code = MPV) 9.5 7.4-10.4 N [facility] PasoNkzkdduWGOXREGYIL3763-88-47 06:52:00 Test Item Value Reference Range Interpretation Comments Segs-Bands # (test code = Segs-Bands #) 7.7 1.5-8.1 N [facility] PasoSkggwpyVSZGDBNFZM6008-33-85 06:52:00 Test Item Value Reference Range Interpretation Comments Basophils (test code = Basophils) 0.3 <=1.0 N [facility] PasoWrmzwtsVTANFDIXWR8650-49-22 06:52:00 Test Item Value Reference Range Interpretation Comments Monocytes # (test code = Monocytes #) 0.6 <=0.8 N [facility] PasoMvhnbjuCRADVRQGIA7697-20-38 06:52:00 Test Item Value Reference Range Interpretation Comments Lymphocytes # (test code = Lymphocytes 0.9 1.0-5.5 L #) [facility] PasoGjcbuzwGQNOCCQPKV5345-75-47 06:52:00 Test Item Value Reference Range Interpretation Comments Lymphocytes (test code = Lymphocytes) 9.5 20.0-40.0 L [facility] PasoDzpdhkpWYGPVHWZII5675-73-22 06:52:00 Test Item Value Reference Range Interpretation Comments Segs (test code = Segs) 84.1 45.0-75.0 H [facility] PasoXxjrehxNAHUIAYMYD3483-19-35 06:52:00 Test Item Value Reference Range Interpretation Comments Monocytes (test code = Monocytes) 6.0 2.0-12.0 N [facility] PasoIdxmrsjYAWXDDOYKR3155-23-91 06:52:00 Test Item Value Reference Range Interpretation Comments Eosinophils (test code = Eosinophils) 0.1 <=4.0 N [facility] HospitalLygzfbfYKPYBITKF2148-16-72 06:52:00 Test Item Value Reference Range Interpretation Comments Phosphorus (test code = Phosphorus) 3.5 2.5-4.5 N [facility] HospitalAyocfqiVKQIKJDSF9738-92-59 06:52:00 Test Item Value Reference Range Interpretation Comments AGAP (test code = AGAP) 13.4 10.0-20.0 N [facility] HospitalFivhmqmNIXFPVCZE7550-67-27 06:52:00 Test Item Value Reference Range Interpretation Comments Glucose Lvl (test code = Glucose Lvl) 181 70-99 H [facility] HospitalEdfsmljIRELKWITY4054-88-18 06:52:00 Test Item Value Reference Range Interpretation Comments Creatinine Lvl (test code = Creatinine 0.9 0.5-1.4 N Lvl) [facility] HospitalAcoaviyHHYCQZJLN2707-55-24 06:52:00 Test Item Value Reference Range Interpretation Comments BUN (test code = BUN) 17 7-22 N [facility] HospitalVvkxlrkEGDJENKSX8022-21-80 06:52:00 Test Item Value Reference Range Interpretation Comments Sodium Lvl (test code = Sodium Lvl) 140 135-145 N [facility] HospitalWukqllpLKDDUXXTW1645-08-76 06:52:00 Test Item Value Reference Range Interpretation Comments Chloride Lvl (test code = Chloride Lvl) 105 95-109 N [facility] HospitalOnptwckDHIEHDZAA1704-38-25 06:52:00 Test Item Value Reference Range Interpretation Comments Calcium Lvl (test code = Calcium Lvl) 9.7 8.5-10.5 N [facility] HospitalCobqvviSZSLHTFIO7997-31-87 06:52:00 Test Item Value Reference Range Interpretation Comments Potassium Lvl (test code = Potassium 4.4 3.5-5.1 N Lvl) [facility] HospitalGycuetsNOZOAPSOL0092-59-03 06:52:00 Test Item Value Reference Range Interpretation Comments CO2 (test code = CO2) 26 24-32 N [facility] HospitalYxxxoowSIAKEUVZG9359-22-85 06:52:00 Test Item Value Reference Range Interpretation Comments eGFR (test code = eGFR) 65 [facility] HospitalAaxgytvNIIPMGJDM7702-89-51 06:52:00 Test Item Value Reference Range Interpretation Comments Magnesium Lvl (test code = Magnesium 1.5 1.8-2.4 L Lvl) [facility] PasoItispsiUPZKNFYTME6750-99-59 06:52:00 Test Item Value Reference Range Interpretation Comments RBC (test code = RBC) 4.85 4.20-5.40 N [facility] PasoByxtetmMNTIXYUWMW9041-90-02 06:52:00 Test Item Value Reference Range Interpretation Comments WBC (test code = WBC) 9.2 3.7-10.4 N [facility] PasoRmfjwvhPHJHONWKVP3047-66-80 06:52:00 Test Item Value Reference Range Interpretation Comments Hgb (test code = Hgb) 14.9 12.0-16.0 N [facility] PasoHvxgeapPHSPQDEMXT0382-06-57 06:52:00 Test Item Value Reference Range Interpretation Comments MCHC (test code = MCHC) 33.3 32.0-36.0 N [facility] PasoKpyaylrVGLTSNEVMA4270-71-29 06:52:00 Test Item Value Reference Range Interpretation Comments MCH (test code = MCH) 30.7 pg 27.0-31.0 N [facility] PasoZarxxjoVBLASBSMBB3730-43-88 06:52:00 Test Item Value Reference Range Interpretation Comments Hct (test code = Hct) 44.9 36.0-48.0 N [facility] PasoMkdfbjdUCURDRNABR8533-15-24 06:52:00 Test Item Value Reference Range Interpretation Comments MCV (test code = MCV) 92.4 81.0-99.0 N [facility] PasoGnchlelLTXEEADLBF7571-66-55 06:52:00 Test Item Value Reference Range Interpretation Comments RDW (test code = RDW) 14.5 11.5-14.5 N [facility] PasoHwplcxnCIGGTWDHFE8422-62-89 06:52:00 Test Item Value Reference Range Interpretation Comments Platelet (test code = Platelet) 213 133-450 N [facility] PasoIwohediILFTDXHVMJ8656-92-73 06:52:00 Test Item Value Reference Range Interpretation Comments MPV (test code = MPV) 9.5 7.4-10.4 N [facility] PasoUjupowvJEVTRBPOST7943-46-43 06:52:00 Test Item Value Reference Range Interpretation Comments Segs-Bands # (test code = Segs-Bands #) 7.7 1.5-8.1 N [facility] PasoLihznbkRTOAWTMWOX5777-27-77 06:52:00 Test Item Value Reference Range Interpretation Comments Basophils (test code = Basophils) 0.3 <=1.0 N [facility] PasoOizvhmiVJJRUIFVVW8055-90-32 06:52:00 Test Item Value Reference Range Interpretation Comments Monocytes # (test code = Monocytes #) 0.6 <=0.8 N [facility] PasoMpqxfusPIHDOLKKEH8171-12-90 06:52:00 Test Item Value Reference Range Interpretation Comments Lymphocytes # (test code = Lymphocytes 0.9 1.0-5.5 L #) [facility] PasoYnbzsvpDYWDTOSNWO6198-88-14 06:52:00 Test Item Value Reference Range Interpretation Comments Lymphocytes (test code = Lymphocytes) 9.5 20.0-40.0 L [facility] PasoKzdtydxBXEUIZRGXJ2071-50-81 06:52:00 Test Item Value Reference Range Interpretation Comments Segs (test code = Segs) 84.1 45.0-75.0 H [facility] PasoNqmfxvsLVIYQISUYT2987-16-73 06:52:00 Test Item Value Reference Range Interpretation Comments Monocytes (test code = Monocytes) 6.0 2.0-12.0 N [facility] PasoMdhcpwaPZQYIRUEKW3856-22-72 06:52:00 Test Item Value Reference Range Interpretation Comments Eosinophils (test code = Eosinophils) 0.1 <=4.0 N [facility] HospitalPitppykJFJNNFRER7548-67-42 06:52:00 Test Item Value Reference Range Interpretation Comments Phosphorus (test code = Phosphorus) 3.5 2.5-4.5 N [facility] HospitalGzjkvyyYLYDSOXXT7374-49-30 06:52:00 Test Item Value Reference Range Interpretation Comments AGAP (test code = AGAP) 13.4 10.0-20.0 N [facility] HospitalIaeugknGXPAMTALS2714-59-51 06:52:00 Test Item Value Reference Range Interpretation Comments Glucose Lvl (test code = Glucose Lvl) 181 70-99 H [facility] HospitalPadtmtuYIALBJLFX4266-75-03 06:52:00 Test Item Value Reference Range Interpretation Comments Creatinine Lvl (test code = Creatinine 0.9 0.5-1.4 N Lvl) [facility] HospitalJlpeqzcIFTOELXXR5904-54-34 06:52:00 Test Item Value Reference Range Interpretation Comments BUN (test code = BUN) 17 7-22 N [facility] HospitalQbomiezSNDRNYWGH5149-94-76 06:52:00 Test Item Value Reference Range Interpretation Comments Sodium Lvl (test code = Sodium Lvl) 140 135-145 N [facility] HospitalWdutzobYACJGKCME2062-22-44 06:52:00 Test Item Value Reference Range Interpretation Comments Chloride Lvl (test code = Chloride Lvl) 105 95-109 N [facility] HospitalJcpiquzBDNJXCXBJ1745-74-47 06:52:00 Test Item Value Reference Range Interpretation Comments Calcium Lvl (test code = Calcium Lvl) 9.7 8.5-10.5 N [facility] HospitalBaqmlvcSGORVIWZF0733-78-03 06:52:00 Test Item Value Reference Range Interpretation Comments Potassium Lvl (test code = Potassium 4.4 3.5-5.1 N Lvl) [facility] HospitalJsxxkydIKMURHPRS1245-44-47 06:52:00 Test Item Value Reference Range Interpretation Comments CO2 (test code = CO2) 26 24-32 N [facility] HospitalTiynzyiUVKWAGNGY7117-83-22 06:52:00 Test Item Value Reference Range Interpretation Comments eGFR (test code = eGFR) 65 [facility] HospitalUdwvxkwODBIAWKBI9498-22-90 06:52:00 Test Item Value Reference Range Interpretation Comments Magnesium Lvl (test code = Magnesium 1.5 1.8-2.4 L Lvl) [facility] PasoNdbfbbiTMUTKBDPYC9041-08-96 06:52:00 Test Item Value Reference Range Interpretation Comments RBC (test code = RBC) 4.85 4.20-5.40 N [facility] PasoOdeketdVXDUJGYPUD7971-03-12 06:52:00 Test Item Value Reference Range Interpretation Comments WBC (test code = WBC) 9.2 3.7-10.4 N [facility] PasoTkhodesXDGLJDZLTD1935-24-97 06:52:00 Test Item Value Reference Range Interpretation Comments Hgb (test code = Hgb) 14.9 12.0-16.0 N [facility] PasoBpvwoleMMOVRHROCW6571-46-84 06:52:00 Test Item Value Reference Range Interpretation Comments MCHC (test code = MCHC) 33.3 32.0-36.0 N [facility] PasoItasdfxFCMPOIUWFF2764-09-00 06:52:00 Test Item Value Reference Range Interpretation Comments MCH (test code = MCH) 30.7 pg 27.0-31.0 N [facility] PasoOessynuQLJJLQQRUG6664-02-48 06:52:00 Test Item Value Reference Range Interpretation Comments Hct (test code = Hct) 44.9 36.0-48.0 N [facility] PasoVxnvckrUIMPJHWPRJ7855-95-40 06:52:00 Test Item Value Reference Range Interpretation Comments MCV (test code = MCV) 92.4 81.0-99.0 N [facility] PasoDieposiWPABUARSIC7530-08-20 06:52:00 Test Item Value Reference Range Interpretation Comments RDW (test code = RDW) 14.5 11.5-14.5 N [facility] PasoCbmcmqdTQUAJOMDFH1484-18-42 06:52:00 Test Item Value Reference Range Interpretation Comments Platelet (test code = Platelet) 213 133-450 N [facility] PasoDaqjwvrZZGKVKDJNK5691-55-28 06:52:00 Test Item Value Reference Range Interpretation Comments MPV (test code = MPV) 9.5 7.4-10.4 N [facility] PasoXdrflpbMQOGFNUBRF4182-26-49 06:52:00 Test Item Value Reference Range Interpretation Comments Segs-Bands # (test code = Segs-Bands #) 7.7 1.5-8.1 N [facility] PasoYkucigcJKBHVLERHV4447-60-91 06:52:00 Test Item Value Reference Range Interpretation Comments Basophils (test code = Basophils) 0.3 <=1.0 N [facility] PasoJxqwupyYKATZWFXCE4906-04-12 06:52:00 Test Item Value Reference Range Interpretation Comments Monocytes # (test code = Monocytes #) 0.6 <=0.8 N [facility] PasoKfvcpidNHAWXACQQN9987-10-42 06:52:00 Test Item Value Reference Range Interpretation Comments Lymphocytes # (test code = Lymphocytes 0.9 1.0-5.5 L #) [facility] PasoStedqgqTFPIOIIBKZ5030-31-57 06:52:00 Test Item Value Reference Range Interpretation Comments Lymphocytes (test code = Lymphocytes) 9.5 20.0-40.0 L [facility] PasoGtslaizBFNSPQJCYB6607-58-49 06:52:00 Test Item Value Reference Range Interpretation Comments Segs (test code = Segs) 84.1 45.0-75.0 H [facility] PasoBfzfuztWRBDUXLWKS6175-44-65 06:52:00 Test Item Value Reference Range Interpretation Comments Monocytes (test code = Monocytes) 6.0 2.0-12.0 N [facility] PasoMcmanprAUBYIOGZCG6764-01-97 06:52:00 Test Item Value Reference Range Interpretation Comments Eosinophils (test code = Eosinophils) 0.1 <=4.0 N [facility] HospitalSlultwaARSQLZSDR9197-85-74 06:52:00 Test Item Value Reference Range Interpretation Comments Phosphorus (test code = Phosphorus) 3.5 2.5-4.5 N [facility] HospitalFmztjlyGYPPCYLEZ2616-00-52 06:52:00 Test Item Value Reference Range Interpretation Comments AGAP (test code = AGAP) 13.4 10.0-20.0 N [facility] HospitalKkqikahWTRGMXPKG0438-66-61 06:52:00 Test Item Value Reference Range Interpretation Comments Glucose Lvl (test code = Glucose Lvl) 181 70-99 H [facility] HospitalPbhagutMKIPCXGTJ4797-16-47 06:52:00 Test Item Value Reference Range Interpretation Comments Creatinine Lvl (test code = Creatinine 0.9 0.5-1.4 N Lvl) [facility] HospitalWlpryvpLCMTQSWVI3041-56-04 06:52:00 Test Item Value Reference Range Interpretation Comments BUN (test code = BUN) 17 7-22 N [facility] HospitalFoxousgNMXOLFAPJ4732-14-11 06:52:00 Test Item Value Reference Range Interpretation Comments Sodium Lvl (test code = Sodium Lvl) 140 135-145 N [facility] HospitalMhkuuagEWLJDBRFS8531-17-02 06:52:00 Test Item Value Reference Range Interpretation Comments Chloride Lvl (test code = Chloride Lvl) 105 95-109 N [facility] HospitalLdgzchrZRCDDOENJ4756-31-62 06:52:00 Test Item Value Reference Range Interpretation Comments Calcium Lvl (test code = Calcium Lvl) 9.7 8.5-10.5 N [facility] HospitalAorcdswEMGCNDJIM7190-95-81 06:52:00 Test Item Value Reference Range Interpretation Comments Potassium Lvl (test code = Potassium 4.4 3.5-5.1 N Lvl) [facility] HospitalQetjagpGXGRHJZCJ1077-54-83 06:52:00 Test Item Value Reference Range Interpretation Comments CO2 (test code = CO2) 26 24-32 N [facility] HospitalLofjqirRGRIWVORK8395-79-58 06:52:00 Test Item Value Reference Range Interpretation Comments eGFR (test code = eGFR) 65 [facility] HospitalJrezziwNZUDCAGVE8054-92-94 06:52:00 Test Item Value Reference Range Interpretation Comments Magnesium Lvl (test code = Magnesium 1.5 1.8-2.4 L Lvl) [facility] PasoBbyamgnNAKOUVLYOV6472-61-40 06:52:00 Test Item Value Reference Range Interpretation Comments RBC (test code = RBC) 4.85 4.20-5.40 N [facility] PasoZsbrzkyOHKUCKXXRN0298-31-95 06:52:00 Test Item Value Reference Range Interpretation Comments WBC (test code = WBC) 9.2 3.7-10.4 N [facility] PasoOdougsjMVVRMNRPZS1604-21-24 06:52:00 Test Item Value Reference Range Interpretation Comments Hgb (test code = Hgb) 14.9 12.0-16.0 N [facility] PasoDxoxrnqLDYCHXLIJN4803-04-88 06:52:00 Test Item Value Reference Range Interpretation Comments MCHC (test code = MCHC) 33.3 32.0-36.0 N [facility] PasoPzcxaphUSABAQIMZE1782-81-81 06:52:00 Test Item Value Reference Range Interpretation Comments MCH (test code = MCH) 30.7 pg 27.0-31.0 N [facility] PasoHntlgqjERNRCOJQJA8832-71-14 06:52:00 Test Item Value Reference Range Interpretation Comments Hct (test code = Hct) 44.9 36.0-48.0 N [facility] PasoTvkyxgmAQAXXPHKCP0978-59-57 06:52:00 Test Item Value Reference Range Interpretation Comments MCV (test code = MCV) 92.4 81.0-99.0 N [facility] PasoDrfqnzbFRMUNXIMNR7834-98-34 06:52:00 Test Item Value Reference Range Interpretation Comments RDW (test code = RDW) 14.5 11.5-14.5 N [facility] PasoKezhamvRQKKOCMLWJ7827-46-99 06:52:00 Test Item Value Reference Range Interpretation Comments Platelet (test code = Platelet) 213 133-450 N [facility] PasoAoptlptHXLVZRFADZ2063-53-70 06:52:00 Test Item Value Reference Range Interpretation Comments MPV (test code = MPV) 9.5 7.4-10.4 N [facility] PasoOqnvcoaHKABQLRLMO1677-13-06 06:52:00 Test Item Value Reference Range Interpretation Comments Segs-Bands # (test code = Segs-Bands #) 7.7 1.5-8.1 N [facility] PasoWaporiaWUZFBVZFFB1729-42-25 06:52:00 Test Item Value Reference Range Interpretation Comments Basophils (test code = Basophils) 0.3 <=1.0 N [facility] PasoXknghxyTLGPMRLCUF4396-86-35 06:52:00 Test Item Value Reference Range Interpretation Comments Monocytes # (test code = Monocytes #) 0.6 <=0.8 N [facility] PasoXdeaathPUXVWAQSID2033-04-77 06:52:00 Test Item Value Reference Range Interpretation Comments Lymphocytes # (test code = Lymphocytes 0.9 1.0-5.5 L #) [facility] PasoWmlygweZHUVLMAWNM5947-87-48 06:52:00 Test Item Value Reference Range Interpretation Comments Lymphocytes (test code = Lymphocytes) 9.5 20.0-40.0 L [facility] PasoKzyjjimEOZNKVFCFL1490-83-44 06:52:00 Test Item Value Reference Range Interpretation Comments Segs (test code = Segs) 84.1 45.0-75.0 H [facility] PasoMtfizqqAUZYOXNRYG6385-09-38 06:52:00 Test Item Value Reference Range Interpretation Comments Monocytes (test code = Monocytes) 6.0 2.0-12.0 N [facility] PasoVauvxytKXYQDWSBTM5203-47-76 06:52:00 Test Item Value Reference Range Interpretation Comments Eosinophils (test code = Eosinophils) 0.1 <=4.0 N [facility] HospitalSyfmgppYVSTKIEDG7430-28-84 06:52:00 Test Item Value Reference Range Interpretation Comments Phosphorus (test code = Phosphorus) 3.5 2.5-4.5 N [facility] HospitalIxnqmabCKWBFKBQT8178-94-69 06:52:00 Test Item Value Reference Range Interpretation Comments AGAP (test code = AGAP) 13.4 10.0-20.0 N [place] 130673-04-19 06:52:00 Test Item Value Reference Range Interpretation Comments Glucose Lvl (test code = Glucose Lvl) 181 70-99 H [facility] HospitalCmsfnktQQBJMKITU9212-88-75 06:52:00 Test Item Value Reference Range Interpretation Comments Creatinine Lvl (test code = Creatinine 0.9 0.5-1.4 N Lvl) [facility] HospitalRpffrfcXURVRYMFC9245-73-66 06:52:00 Test Item Value Reference Range Interpretation Comments BUN (test code = BUN) 17 7-22 N [facility] HospitalRnjvzweIIKOFUKWA9230-21-79 06:52:00 Test Item Value Reference Range Interpretation Comments Sodium Lvl (test code = Sodium Lvl) 140 135-145 N [facility] HospitalYyvveekCHGQLMAVE7738-05-29 06:52:00 Test Item Value Reference Range Interpretation Comments Chloride Lvl (test code = Chloride Lvl) 105 95-109 N [facility] HospitalTzzraenLVXUZPMLQ6397-76-95 06:52:00 Test Item Value Reference Range Interpretation Comments Calcium Lvl (test code = Calcium Lvl) 9.7 8.5-10.5 N [facility] HospitalMhpgzfiZBVQINUTU0868-77-35 06:52:00 Test Item Value Reference Range Interpretation Comments Potassium Lvl (test code = Potassium 4.4 3.5-5.1 N Lvl) [facility] HospitalIrwvumpVFHFLBLGC7893-50-70 06:52:00 Test Item Value Reference Range Interpretation Comments CO2 (test code = CO2) 26 24-32 N [facility] HospitalFibkzvpZXCOZCLIE2995-91-93 06:52:00 Test Item Value Reference Range Interpretation Comments eGFR (test code = eGFR) 65 [facility] HospitalNkvkkrqTOQDJVSWK3058-87-13 06:52:00 Test Item Value Reference Range Interpretation Comments Magnesium Lvl (test code = Magnesium 1.5 1.8-2.4 L Lvl) [facility] PasoCuuykmyJFBZMNQLAR8758-91-22 06:52:00 Test Item Value Reference Range Interpretation Comments RBC (test code = RBC) 4.85 4.20-5.40 N [facility] PasoRudmvjyXYYIZBYWPT1206-52-21 06:52:00 Test Item Value Reference Range Interpretation Comments WBC (test code = WBC) 9.2 3.7-10.4 N [facility] PasoLeuhxnnYNRZJFGRXT8643-63-22 06:52:00 Test Item Value Reference Range Interpretation Comments Hgb (test code = Hgb) 14.9 12.0-16.0 N [facility] PasoYedlibaUHFBKKCQLU2465-99-94 06:52:00 Test Item Value Reference Range Interpretation Comments MCHC (test code = MCHC) 33.3 32.0-36.0 N [facility] PasoRomnknzGCUTWNCHIN6819-06-24 06:52:00 Test Item Value Reference Range Interpretation Comments MCH (test code = MCH) 30.7 pg 27.0-31.0 N [facility] PasoMpbssjcSKKIUOKZIM6868-02-56 06:52:00 Test Item Value Reference Range Interpretation Comments Hct (test code = Hct) 44.9 36.0-48.0 N [facility] PasoVpwibmbLBNJMXLWJV7808-13-49 06:52:00 Test Item Value Reference Range Interpretation Comments MCV (test code = MCV) 92.4 81.0-99.0 N [facility] PasoBapbtigQIVDJBMGRP3517-82-34 06:52:00 Test Item Value Reference Range Interpretation Comments RDW (test code = RDW) 14.5 11.5-14.5 N [facility] PasoDdjmkiwMAYFPVNPGF1882-91-43 06:52:00 Test Item Value Reference Range Interpretation Comments Platelet (test code = Platelet) 213 133-450 N [facility] PasoKvorrsdTVBAILKVPE0671-16-94 06:52:00 Test Item Value Reference Range Interpretation Comments MPV (test code = MPV) 9.5 7.4-10.4 N [facility] PasoDpnqtfxLGGXKFNANI8394-15-23 06:52:00 Test Item Value Reference Range Interpretation Comments Segs-Bands # (test code = Segs-Bands #) 7.7 1.5-8.1 N [facility] PasoTfiebowJSRYNFQGLG0103-93-13 06:52:00 Test Item Value Reference Range Interpretation Comments Basophils (test code = 0.3 See_Comment N [Aut omated message] The Basophils) system which ge nerated this result tra nsmitted reference range : <=1.0. The reference r leatha was not used to int erpret this result as normal/abnormal . [facility] PasoAhmycnzCIULIOLIUR8088-75-76 06:52:00 Test Item Value Reference Range Interpretation Comments Monocytes # (test code 0.6 See_Comment N [Aut omated message] The = Monocytes #) system which generated this result tra nsmitted reference range : <=0.8. The reference r leatha was not used to int erpret this result as normal/abnormal . [facility] PasoMcqdvthLSHMARMKJB2704-94-13 06:52:00 Test Item Value Reference Range Interpretation Comments Lymphocytes # (test code = Lymphocytes 0.9 1.0-5.5 L #) [facility] PasoCskiytiPBWXGWALCF2969-43-23 06:52:00 Test Item Value Reference Range Interpretation Comments Lymphocytes (test code = Lymphocytes) 9.5 20.0-40.0 L [facility] PasoUmtroihJHVQAIFKGD3155-91-92 06:52:00 Test Item Value Reference Range Interpretation Comments Segs (test code = Segs) 84.1 45.0-75.0 H [facility] PasoNvwzqglDZRSXRTATQ4977-04-35 06:52:00 Test Item Value Reference Range Interpretation Comments Monocytes (test code = Monocytes) 6.0 2.0-12.0 N [facility] PasoWoamjbzRFMJLDAQRC9991-43-24 06:52:00 Test Item Value Reference Range Interpretation Comments Eosinophils (test code = 0.1 See_Comment N [A utomated message] The Eosinophils) system which ge nerated this result tra nsmitted reference range : <=4.0. The reference r leatha was not used to int erpret this result as normal/abnormal . [facility]YtmpyflAQHMDQJDR5956-25-62 06:52:00 Test Item Value Reference Range Interpretation Comments Phosphorus (test code = Phosphorus) 3.5 2.5-4.5 N [facility] HospitalAduijaxELNJTGDHY2950-47-81 06:52:00 Test Item Value Reference Range Interpretation Comments AGAP (test code = AGAP) 13.4 10.0-20.0 N [facility] HospitalWyzvsbfVOSCXLXVO5582-64-24 06:52:00 Test Item Value Reference Range Interpretation Comments Glucose Lvl (test code = Glucose Lvl) 181 70-99 H [facility] HospitalIlmvptvXXVKXHUGC2382-48-97 06:52:00 Test Item Value Reference Range Interpretation Comments Creatinine Lvl (test code = Creatinine 0.9 0.5-1.4 N Lvl) [facility] HospitalAeuoasoVKYWEVRIB1185-79-39 06:52:00 Test Item Value Reference Range Interpretation Comments BUN (test code = BUN) 17 7-22 N [facility] HospitalQmtppmyFUOLUOOYR1309-04-29 06:52:00 Test Item Value Reference Range Interpretation Comments Sodium Lvl (test code = Sodium Lvl) 140 135-145 N [facility] HospitalMqybhzyUQFRKHXBP0530-09-39 06:52:00 Test Item Value Reference Range Interpretation Comments Chloride Lvl (test code = Chloride Lvl) 105 95-109 N [facility] HospitalSkciaorLNOWWTLYB1884-20-15 06:52:00 Test Item Value Reference Range Interpretation Comments Calcium Lvl (test code = Calcium Lvl) 9.7 8.5-10.5 N [facility] HospitalOadjfeaYTGYZWUMN7343-66-35 06:52:00 Test Item Value Reference Range Interpretation Comments Potassium Lvl (test code = Potassium 4.4 3.5-5.1 N Lvl) [facility] HospitalZcdxsbcPROYGYAZL2946-31-85 06:52:00 Test Item Value Reference Range Interpretation Comments CO2 (test code = CO2) 26 24-32 N [facility] HospitalSqcwuwqGRWBICHGT7349-40-30 06:52:00 Test Item Value Reference Range Interpretation Comments eGFR (test code = eGFR) 65 [facility] HospitalWxdwdxaBQKNFIXUQ8355-58-94 06:52:00 Test Item Value Reference Range Interpretation Comments Magnesium Lvl (test code = Magnesium 1.5 1.8-2.4 L Lvl) [facility] PasoAeptmfyASFENLEKGN3996-55-89 06:52:00 Test Item Value Reference Range Interpretation Comments RBC (test code = RBC) 4.85 4.20-5.40 N [facility] PasoRynfkrgLFIRJPRSZL9880-90-69 06:52:00 Test Item Value Reference Range Interpretation Comments WBC (test code = WBC) 9.2 3.7-10.4 N [facility] PasoXerzvbfQZLITWAYZV4223-23-21 06:52:00 Test Item Value Reference Range Interpretation Comments Hgb (test code = Hgb) 14.9 12.0-16.0 N [facility] PasoAstwpnoPAINJUCHMB8796-38-52 06:52:00 Test Item Value Reference Range Interpretation Comments MCHC (test code = MCHC) 33.3 32.0-36.0 N [facility] PasoDqzukywDNVSAUUFCR0949-14-99 06:52:00 Test Item Value Reference Range Interpretation Comments MCH (test code = MCH) 30.7 pg 27.0-31.0 N [facility] PasoOzhulvpHDINOEMEFT2110-74-07 06:52:00 Test Item Value Reference Range Interpretation Comments Hct (test code = Hct) 44.9 36.0-48.0 N [facility] PasoXmicjgcLTPEYVOLHX0745-24-48 06:52:00 Test Item Value Reference Range Interpretation Comments MCV (test code = MCV) 92.4 81.0-99.0 N [facility] PasoHipdvwtOMZFKAVYFY3607-39-59 06:52:00 Test Item Value Reference Range Interpretation Comments RDW (test code = RDW) 14.5 11.5-14.5 N [facility] PasoDigivloVZTIEFZLUB4153-08-99 06:52:00 Test Item Value Reference Range Interpretation Comments Platelet (test code = Platelet) 213 133-450 N [facility] PasoGlqibglOLWGISHGNY4302-84-03 06:52:00 Test Item Value Reference Range Interpretation Comments MPV (test code = MPV) 9.5 7.4-10.4 N [facility] PasoIzxsgvpHEUEFZBSAE0401-54-56 06:52:00 Test Item Value Reference Range Interpretation Comments Segs-Bands # (test code = Segs-Bands #) 7.7 1.5-8.1 N [facility] PasoOkjhnblCDABSNBPGT6124-95-93 06:52:00 Test Item Value Reference Range Interpretation Comments Basophils (test code = Basophils) 0.3 <=1.0 N [facility] PasoEpzfwkuFRKHEGUTBJ4207-35-44 06:52:00 Test Item Value Reference Range Interpretation Comments Monocytes # (test code = Monocytes #) 0.6 <=0.8 N [facility] PasoKlqfbujWNNTQFSEWC9240-51-17 06:52:00 Test Item Value Reference Range Interpretation Comments Lymphocytes # (test code = Lymphocytes 0.9 1.0-5.5 L #) [facility] PasoEdjjuazFNAHIQQAPY7713-00-63 06:52:00 Test Item Value Reference Range Interpretation Comments Lymphocytes (test code = Lymphocytes) 9.5 20.0-40.0 L [facility] PasoOvwmnbfFOPFMBWUMU6037-03-18 06:52:00 Test Item Value Reference Range Interpretation Comments Segs (test code = Segs) 84.1 45.0-75.0 H [facility] PasoGqlfqywWQOEUYPSON8092-69-08 06:52:00 Test Item Value Reference Range Interpretation Comments Monocytes (test code = Monocytes) 6.0 2.0-12.0 N [facility] PasoIfqaghsEBVETQMMGY5490-91-30 06:52:00 Test Item Value Reference Range Interpretation Comments Eosinophils (test code = Eosinophils) 0.1 <=4.0 N [place] 130673-04-18 19:08:00 Test Item Value Reference Range Interpretation Comments POC A Glu (test code = POC A Glu) 152 70-99 H [facility] HospitalZejqbioLMKCICEQA7977-99-23 19:08:00 Test Item Value Reference Range Interpretation Comments POC A LA (test code = POC A LA) 0.7 0.5-2.2 N [facility] HospitalGxzncvyUYXKJIVRL5777-21-49 19:08:00 Test Item Value Reference Range Interpretation Comments POC A HCO3 (test code = POC A HCO3) 24 22-26 N [facility] HospitalRyzcekuACNAVHRAV6025-13-41 19:08:00 Test Item Value Reference Range Interpretation Comments POC A BE (test code = -1 See_Comment N [Auto mated message] The POC A BE) system which ge nerated this result transmit juan reference range : <=2. The reference range was not used to interpr et this result as polina l/abnormal. [facility] CenterLzrdxhgUJZFTSFNU0073-83-70 19:08:00 Test Item Value Reference Range Interpretation Comments POC A Hct (test code = POC A Hct) 35.0 36.0-48.0 L [facility] HospitalMapleeeNMDLKCPLT8959-51-13 19:08:00 Test Item Value Reference Range Interpretation Comments POC A O2 Sat (test code = POC A O2 Sat) 96.0 95.0-100.[address] [facility] CenterYzcihknSECKBKMBQ2772-98-43 19:08:00 Test Item Value Reference Range Interpretation Comments POC A K (test code = POC A K) 3.4 3.5-5.[address] [facility] CenterUnjsnzwJLYRFBRQK8756-58-49 19:08:00 Test Item Value Reference Range Interpretation Comments POC A Na (test code = POC A Na) 138 135-[address] [facility] CenterGjqupxcPPPCLYZQH4722-34-23 19:08:00 Test Item Value Reference Range Interpretation Comments POC A PCO2 (test code = POC A PCO2) 40 35-[address] [facility] CenterQivfecvDAPRNVCHS8754-06-93 19:08:00 Test Item Value Reference Range Interpretation Comments POC A Ca Ion (test code = POC A Ca Ion) 1.26 1.16-1.[address] [facility] CenterRvysoljAKGRABODL8246-26-13 19:08:00 Test Item Value Reference Range Interpretation Comments POC A Source (test code = POC A Source) ART [facility] HospitalUkncnhaXXQZXXNIE6872-68-83 19:08:00 Test Item Value Reference Range Interpretation Comments POC A Temp (test code = POC A Temp) 37.0 [facility] HospitalVbifcyoREQQUYAAD0680-83-24 19:08:00 Test Item Value Reference Range Interpretation Comments POC A PO2 (test code = POC A PO2) 85 80-100 N [facility] HospitalYkxagweKCJAFHNBN6570-22-92 19:08:00 Test Item Value Reference Range Interpretation Comments POC A pH (test code = POC A pH) 7.39 7.35-7.45 N [facility] HospitalToasplrKRPOUQBSH0058-34-56 19:08:00 Test Item Value Reference Range Interpretation Comments POC A Glu (test code = POC A Glu) 152 70-99 H [facility] HospitalLkktwsmKEMMQODYC2187-91-14 19:08:00 Test Item Value Reference Range Interpretation Comments POC A LA (test code = POC A LA) 0.7 0.5-2.2 N [facility] HospitalVsjpsgzOAXLPJQWE5924-52-52 19:08:00 Test Item Value Reference Range Interpretation Comments POC A HCO3 (test code = POC A HCO3) 24 22-26 N [facility] HospitalTjwvgirINQCHDNKI0691-60-18 19:08:00 Test Item Value Reference Range Interpretation Comments POC A BE (test code = -1 See_Comment N [Auto mated message] The POC A BE) system which ge nerated this result transmit juan reference range : <=2. The reference range was not used to interpr et this result as polina l/abnormal. [facility] HospitalYpyaiitUGEJLGKZM1918-19-47 19:08:00 Test Item Value Reference Range Interpretation Comments POC A Hct (test code = POC A Hct) 35.0 36.0-48.0 L [facility] HospitalPdybwwqNSPVRIGPZ2248-70-30 19:08:00 Test Item Value Reference Range Interpretation Comments POC A O2 Sat (test code = POC A O2 Sat) 96.0 95.0-100.0 N [facility] HospitalCzgqwmzVPDEEOIGV4905-59-40 19:08:00 Test Item Value Reference Range Interpretation Comments POC A K (test code = POC A K) 3.4 3.5-5.1 L [facility] HospitalJflqollXXNDJGWWO0327-57-95 19:08:00 Test Item Value Reference Range Interpretation Comments POC A Na (test code = POC A Na) 138 135-145 N [facility] HospitalVqswulwZMKNCMJDT3748-10-52 19:08:00 Test Item Value Reference Range Interpretation Comments POC A PCO2 (test code = POC A PCO2) 40 35-45 N [facility] HospitalLdfhboaQUYXCDWVJ7079-33-29 19:08:00 Test Item Value Reference Range Interpretation Comments POC A Ca Ion (test code = POC A Ca Ion) 1.26 1.16-1.30 N [facility] HospitalDgttcyfXGAKQXQUP3574-91-55 19:08:00 Test Item Value Reference Range Interpretation Comments POC A Source (test code = POC A Source) ART [facility] HospitalGhorjkoUCJPTFNBV7464-99-59 19:08:00 Test Item Value Reference Range Interpretation Comments POC A Temp (test code = POC A Temp) 37.0 [facility] HospitalErptvwiLXNBYQYIK6647-56-72 19:08:00 Test Item Value Reference Range Interpretation Comments POC A PO2 (test code = POC A PO2) 85 80-100 N [facility] HospitalRefumwoFIHNNMQOM8067-26-37 19:08:00 Test Item Value Reference Range Interpretation Comments POC A pH (test code = POC A pH) 7.39 7.35-7.45 N [facility] HospitalMycbzqqHECRXIOAJ2781-50-97 19:08:00 Test Item Value Reference Range Interpretation Comments POC A Glu (test code = POC A Glu) 152 70-99 H [facility] HospitalAcyzjbdMULTNYTVH7378-43-39 19:08:00 Test Item Value Reference Range Interpretation Comments POC A LA (test code = POC A LA) 0.7 0.5-2.2 N [facility] HospitalAvluhydQJCJTDEEP7143-97-17 19:08:00 Test Item Value Reference Range Interpretation Comments POC A HCO3 (test code = POC A HCO3) 24 22-26 N [facility] HospitalPqlpuolOOVYAQQSQ2455-53-76 19:08:00 Test Item Value Reference Range Interpretation Comments POC A BE (test code = -1 See_Comment N [Auto mated message] The POC A BE) system which ge nerated this result transmit juan reference range : <=2. The reference range was not used to interpr et this result as polina l/abnormal. [facility] HospitalCcatpnqTCYKKVGSI6298-07-00 19:08:00 Test Item Value Reference Range Interpretation Comments POC A Hct (test code = POC A Hct) 35.0 36.0-48.0 L [facility] HospitalBhmhkfvVWQHBVFKH6751-28-63 19:08:00 Test Item Value Reference Range Interpretation Comments POC A O2 Sat (test code = POC A O2 Sat) 96.0 95.0-100.0 N [facility] HospitalYaqknuqBYWATBRPL6679-36-43 19:08:00 Test Item Value Reference Range Interpretation Comments POC A K (test code = POC A K) 3.4 3.5-5.1 L [facility] HospitalAkzemwjBRGPJRYHU0404-83-95 19:08:00 Test Item Value Reference Range Interpretation Comments POC A Na (test code = POC A Na) 138 135-145 N [facility] HospitalScbltdaRBRSDQPDD3986-74-89 19:08:00 Test Item Value Reference Range Interpretation Comments POC A PCO2 (test code = POC A PCO2) 40 35-45 N [facility] HospitalVojdnyhCUYUXINBX7758-51-10 19:08:00 Test Item Value Reference Range Interpretation Comments POC A Ca Ion (test code = POC A Ca Ion) 1.26 1.16-1.30 N [facility] HospitalAqprfpkJGQPGRRUF2537-07-15 19:08:00 Test Item Value Reference Range Interpretation Comments POC A Source (test code = POC A Source) ART [facility] HospitalVccdshuWADKGGCJZ6041-42-92 19:08:00 Test Item Value Reference Range Interpretation Comments POC A Temp (test code = POC A Temp) 37.0 [facility] HospitalRqgqtdxVPDBNLHLP6436-04-85 19:08:00 Test Item Value Reference Range Interpretation Comments POC A PO2 (test code = POC A PO2) 85 80-100 N [facility] HospitalJuyfckrCDRZFPCRA3885-29-61 19:08:00 Test Item Value Reference Range Interpretation Comments POC A pH (test code = POC A pH) 7.39 7.35-7.45 N [facility] HospitalVgfjhelNCOQMRBYJ7116-24-87 19:08:00 Test Item Value Reference Range Interpretation Comments POC A Glu (test code = POC A Glu) 152 70-99 H [facility] HospitalVdccyuaKUPLTNSSK6476-76-77 19:08:00 Test Item Value Reference Range Interpretation Comments POC A LA (test code = POC A LA) 0.7 0.5-2.2 N [facility] HospitalMsfckusHJRXDCBQZ1077-37-38 19:08:00 Test Item Value Reference Range Interpretation Comments POC A HCO3 (test code = POC A HCO3) 24 22-26 N [facility] HospitalMrubbuiZZVWRBZBF0947-72-58 19:08:00 Test Item Value Reference Range Interpretation Comments POC A BE (test code = -1 See_Comment N [Auto mated message] The POC A BE) system which ge nerated this result transmit juan reference range : <=2. The reference range was not used to interpr et this result as polina l/abnormal. [facility] HospitalCvlzwdxRDTJOGIXE9410-87-97 19:08:00 Test Item Value Reference Range Interpretation Comments POC A Hct (test code = POC A Hct) 35.0 36.0-48.0 L [facility] HospitalHfrxgnzDCJRZLIDC4232-14-28 19:08:00 Test Item Value Reference Range Interpretation Comments POC A O2 Sat (test code = POC A O2 Sat) 96.0 95.0-100.0 N [facility] HospitalWmgccykMQDNHHCXV8425-14-07 19:08:00 Test Item Value Reference Range Interpretation Comments POC A K (test code = POC A K) 3.4 3.5-5.1 L [facility] HospitalBhkcaduBYKCDPUHO7773-33-68 19:08:00 Test Item Value Reference Range Interpretation Comments POC A Na (test code = POC A Na) 138 135-145 N [facility] HospitalMpfjqegWBZCROMCF3523-64-48 19:08:00 Test Item Value Reference Range Interpretation Comments POC A PCO2 (test code = POC A PCO2) 40 35-45 N [facility] HospitalSqykaysXGYUWJGEW3635-57-64 19:08:00 Test Item Value Reference Range Interpretation Comments POC A Ca Ion (test code = POC A Ca Ion) 1.26 1.16-1.30 N [facility] HospitalVfzxqmkYDUYTLVPK2945-97-71 19:08:00 Test Item Value Reference Range Interpretation Comments POC A Source (test code = POC A Source) ART [facility] HospitalAynkixuQCYBBWKRF4261-76-43 19:08:00 Test Item Value Reference Range Interpretation Comments POC A Temp (test code = POC A Temp) 37.0 [facility] HospitalFmrfrakEISWNBAFJ5673-09-35 19:08:00 Test Item Value Reference Range Interpretation Comments POC A PO2 (test code = POC A PO2) 85 80-100 N [facility] HospitalBhoykqtEWAMOETXV0528-24-13 19:08:00 Test Item Value Reference Range Interpretation Comments POC A pH (test code = POC A pH) 7.39 7.35-7.45 N [facility] HospitalSshnbiiBFRXHAEYN9018-21-73 19:08:00 Test Item Value Reference Range Interpretation Comments POC A Glu (test code = POC A Glu) 152 70-99 H [facility] HospitalZrqfsshNZBABOUXX5275-58-11 19:08:00 Test Item Value Reference Range Interpretation Comments POC A LA (test code = POC A LA) 0.7 0.5-2.2 N [facility] HospitalBbgranrWEQDJRIEF7589-77-73 19:08:00 Test Item Value Reference Range Interpretation Comments POC A HCO3 (test code = POC A HCO3) 24 22-26 N [facility] HospitalDyxivgbBNAYCRBPR2591-78-79 19:08:00 Test Item Value Reference Range Interpretation Comments POC A BE (test code = -1 See_Comment N [Auto mated message] The POC A BE) system which ge nerated this result transmit juan reference range : <=2. The reference range was not used to interpr et this result as polina l/abnormal. [facility] HospitalEtkyaqtTLQYCGNTP9480-00-22 19:08:00 Test Item Value Reference Range Interpretation Comments POC A Hct (test code = POC A Hct) 35.0 36.0-48.0 L [facility] HospitalUxzatwqSQEECWPFK0771-52-80 19:08:00 Test Item Value Reference Range Interpretation Comments POC A O2 Sat (test code = POC A O2 Sat) 96.0 95.0-100.0 N [facility] HospitalUwbxlfnYESYHJXGL3302-47-83 19:08:00 Test Item Value Reference Range Interpretation Comments POC A K (test code = POC A K) 3.4 3.5-5.1 L [facility] HospitalDixfzooGPBHLGGVV6007-54-91 19:08:00 Test Item Value Reference Range Interpretation Comments POC A Na (test code = POC A Na) 138 135-145 N [facility] HospitalKcrkmwhOZKZWISNQ0301-97-91 19:08:00 Test Item Value Reference Range Interpretation Comments POC A PCO2 (test code = POC A PCO2) 40 35-45 N [facility] HospitalPczoqucAUUILWKWX0204-46-08 19:08:00 Test Item Value Reference Range Interpretation Comments POC A Ca Ion (test code = POC A Ca Ion) 1.26 1.16-1.30 N [facility] HospitalKmagoyjOANAXWBUG8862-48-22 19:08:00 Test Item Value Reference Range Interpretation Comments POC A Source (test code = POC A Source) ART [facility] HospitalYpppclcZEAKWWKYV0849-66-55 19:08:00 Test Item Value Reference Range Interpretation Comments POC A Temp (test code = POC A Temp) 37.0 [facility] HospitalBiwabezPWICJFHDN8996-35-10 19:08:00 Test Item Value Reference Range Interpretation Comments POC A PO2 (test code = POC A PO2) 85 80-100 N [facility] HospitalCkmkoxlGJIQNYEHP1701-70-44 19:08:00 Test Item Value Reference Range Interpretation Comments POC A pH (test code = POC A pH) 7.39 7.35-7.45 N [facility] HospitalRbnsvwhADEFXJWSI3636-66-16 19:08:00 Test Item Value Reference Range Interpretation Comments POC A Glu (test code = POC A Glu) 152 70-99 H [facility] HospitalGtfvnfhMGMTKKEAE5616-34-13 19:08:00 Test Item Value Reference Range Interpretation Comments POC A LA (test code = POC A LA) 0.7 0.5-2.2 N [facility] HospitalEsnqofwLIRKJKVBM4098-29-74 19:08:00 Test Item Value Reference Range Interpretation Comments POC A HCO3 (test code = POC A HCO3) 24 22-26 N [facility] HospitalKlkwzptBTVNOKWQI9807-60-85 19:08:00 Test Item Value Reference Range Interpretation Comments POC A BE (test code = -1 See_Comment N [Auto mated message] The POC A BE) system which ge nerated this result transmit juan reference range : <=2. The reference range was not used to interpr et this result as polina l/abnormal. [facility] HospitalYaixkuwNZJUBSNES1630-43-04 19:08:00 Test Item Value Reference Range Interpretation Comments POC A Hct (test code = POC A Hct) 35.0 36.0-48.0 L [facility] HospitalMwheqgzOFPKLAYII9074-44-08 19:08:00 Test Item Value Reference Range Interpretation Comments POC A O2 Sat (test code = POC A O2 Sat) 96.0 95.0-100.0 N [facility] HospitalQpznbvqDWGVTSEAH1271-25-61 19:08:00 Test Item Value Reference Range Interpretation Comments POC A K (test code = POC A K) 3.4 3.5-5.1 L [facility] HospitalLrjnfibXWGMBSLVC4189-03-79 19:08:00 Test Item Value Reference Range Interpretation Comments POC A Na (test code = POC A Na) 138 135-145 N [place] 130673-04-18 19:08:00 Test Item Value Reference Range Interpretation Comments POC A PCO2 (test code = POC A PCO2) 40 35-45 N [facility] HospitalNldrmrwBZDUWKDAT9812-66-49 19:08:00 Test Item Value Reference Range Interpretation Comments POC A Ca Ion (test code = POC A Ca Ion) 1.26 1.16-1.30 N [facility] HospitalVcdptmhMEVSVYAAS0545-09-33 19:08:00 Test Item Value Reference Range Interpretation Comments POC A Source (test code = POC A Source) ART [facility] HospitalVtezbetILKMHVBAV4485-67-65 19:08:00 Test Item Value Reference Range Interpretation Comments POC A Temp (test code = POC A Temp) 37.0 [facility] HospitalBjannluOVUOTWIGT5337-97-52 19:08:00 Test Item Value Reference Range Interpretation Comments POC A PO2 (test code = POC A PO2) 85 80-100 N [facility] HospitalJhbirrlYDDGRVNNR2498-37-45 19:08:00 Test Item Value Reference Range Interpretation Comments POC A pH (test code = POC A pH) 7.39 7.35-7.45 N [facility] HospitalQmewntkXISIKKIJQ7979-26-02 19:08:00 Test Item Value Reference Range Interpretation Comments POC A Glu (test code = POC A Glu) 152 70-99 H [facility] HospitalTytbnxfKAYLVPRQZ2730-40-19 19:08:00 Test Item Value Reference Range Interpretation Comments POC A LA (test code = POC A LA) 0.7 0.5-2.2 N [facility] HospitalAftdrdbHWVEPXQHV2838-79-88 19:08:00 Test Item Value Reference Range Interpretation Comments POC A HCO3 (test code = POC A HCO3) 24 22-26 N [facility] HospitalActycnuXTNYPQLBB7597-10-56 19:08:00 Test Item Value Reference Range Interpretation Comments POC A BE (test code = POC A BE) -1 <=2 N [facility] HospitalKacurqhERLRZVEDO2115-96-87 19:08:00 Test Item Value Reference Range Interpretation Comments POC A Hct (test code = POC A Hct) 35.0 36.0-48.0 L [facility] HospitalPssfxxzTRKNJAAYE3295-27-52 19:08:00 Test Item Value Reference Range Interpretation Comments POC A O2 Sat (test code = POC A O2 Sat) 96.0 95.0-100.0 N [facility] HospitalGlgdlbfCBZQEBSZD0630-16-03 19:08:00 Test Item Value Reference Range Interpretation Comments POC A K (test code = POC A K) 3.4 3.5-5.1 L [facility] HospitalPawozniYQJSWCIWX2487-46-38 19:08:00 Test Item Value Reference Range Interpretation Comments POC A Na (test code = POC A Na) 138 135-145 N [facility] HospitalChjvpqtXZQOCFKLX7256-33-00 19:08:00 Test Item Value Reference Range Interpretation Comments POC A PCO2 (test code = POC A PCO2) 40 35-45 N [facility]TwdgxvhEPDPQVSKM9782-23-07 19:08:00 Test Item Value Reference Range Interpretation Comments POC A Ca Ion (test code = POC A Ca Ion) 1.26 1.16-1.30 N [facility] HospitalUipvxqwPROKKGAZO3624-85-18 19:08:00 Test Item Value Reference Range Interpretation Comments POC A Source (test code = POC A Source) ART [facility] HospitalGjberfjMADKUEJEH6569-97-95 19:08:00 Test Item Value Reference Range Interpretation Comments POC A Temp (test code = POC A Temp) 37.0 [facility] HospitalWfgbfsaCVBCHXLXU5529-38-52 19:08:00 Test Item Value Reference Range Interpretation Comments POC A PO2 (test code = POC A PO2) 85 80-100 N [facility] HospitalBtydkdvOUTGSBXCK8365-58-64 19:08:00 Test Item Value Reference Range Interpretation Comments POC A pH (test code = POC A pH) 7.39 7.35-7.45 N [facility] HospitalAnwqcccMNARNVSSX1856-53-12 19:08:00 Test Item Value Reference Range Interpretation Comments POC A Glu (test code = POC A Glu) 152 70-99 H [facility] HospitalIbrngbvDDCPBIZNR3812-90-60 19:08:00 Test Item Value Reference Range Interpretation Comments POC A LA (test code = POC A LA) 0.7 0.5-2.2 N [facility] HospitalUlkwoluQWTZMOVMB5440-49-53 19:08:00 Test Item Value Reference Range Interpretation Comments POC A HCO3 (test code = POC A HCO3) 24 22-26 N [facility] HospitalBohkldzETORGOKFG8436-51-39 19:08:00 Test Item Value Reference Range Interpretation Comments POC A BE (test code = POC A BE) -1 <=2 N [facility] HospitalXhxpjyrTSWNIMDGE0046-16-55 19:08:00 Test Item Value Reference Range Interpretation Comments POC A Hct (test code = POC A Hct) 35.0 36.0-48.0 L [facility] HospitalJzcjwppJLLGYWDMZ5552-68-55 19:08:00 Test Item Value Reference Range Interpretation Comments POC A O2 Sat (test code = POC A O2 Sat) 96.0 95.0-100.0 N [facility] HospitalJsdlihmNASCVMYCV5669-13-33 19:08:00 Test Item Value Reference Range Interpretation Comments POC A K (test code = POC A K) 3.4 3.5-5.1 L [facility] HospitalNkhutzyOMALTPCBR2705-86-79 19:08:00 Test Item Value Reference Range Interpretation Comments POC A Na (test code = POC A Na) 138 135-145 N [facility] HospitalWerdyzfQXTNFNNJM7680-36-42 19:08:00 Test Item Value Reference Range Interpretation Comments POC A PCO2 (test code = POC A PCO2) 40 35-45 N [facility] HospitalDxflccaHYISCKDGP0834-53-15 19:08:00 Test Item Value Reference Range Interpretation Comments POC A Ca Ion (test code = POC A Ca Ion) 1.26 1.16-1.30 N [facility] HospitalYjtrkzpLKKPHEZTS1759-34-45 19:08:00 Test Item Value Reference Range Interpretation Comments POC A Source (test code = POC A Source) ART [facility] HospitalQaiyppsXSMFOVOIT4164-71-32 19:08:00 Test Item Value Reference Range Interpretation Comments POC A Temp (test code = POC A Temp) 37.0 [facility] HospitalOaogtcxKHQZQTREH0132-15-81 19:08:00 Test Item Value Reference Range Interpretation Comments POC A PO2 (test code = POC A PO2) 85 80-100 N [facility] HospitalMsaseygNIWODRQBW3959-71-30 19:08:00 Test Item Value Reference Range Interpretation Comments POC A pH (test code = POC A pH) 7.39 7.35-7.45 N [facility] HospitalCujoeqdTLHDQTBRK6173-82-14 19:08:00 Test Item Value Reference Range Interpretation Comments POC A Glu (test code = POC A Glu) 152 70-99 H [facility] HospitalSaaikmnVUEQJKPRY4495-83-18 19:08:00 Test Item Value Reference Range Interpretation Comments POC A LA (test code = POC A LA) 0.7 0.5-2.2 N [facility] HospitalHygpdxsEWNYZBNWT5675-86-41 19:08:00 Test Item Value Reference Range Interpretation Comments POC A HCO3 (test code = POC A HCO3) 24 22-26 N [facility] HospitalEwwaebzWKEVEFBBE4538-74-00 19:08:00 Test Item Value Reference Range Interpretation Comments POC A BE (test code = -1 See_Comment N [Auto mated message] The POC A BE) system which ge nerated this result transmit juan reference range : <=2. The reference range was not used to interpr et this result as polina l/abnormal. [facility] HospitalDbfzjpdXOZKUMCZK0994-62-57 19:08:00 Test Item Value Reference Range Interpretation Comments POC A Hct (test code = POC A Hct) 35.0 36.0-48.0 L [facility] HospitalYarcfgaVPWGBLUZO5024-04-15 19:08:00 Test Item Value Reference Range Interpretation Comments POC A O2 Sat (test code = POC A O2 Sat) 96.0 95.0-100.0 N [facility] HospitalFnxhixcFHIILUITZ6499-66-15 19:08:00 Test Item Value Reference Range Interpretation Comments POC A K (test code = POC A K) 3.4 3.5-5.1 L [facility] HospitalHcwvrwsIQXKYYDHN9747-47-46 19:08:00 Test Item Value Reference Range Interpretation Comments POC A Na (test code = POC A Na) 138 135-145 N [facility] HospitalVlqzkwhGHQOZQCRM9379-24-78 19:08:00 Test Item Value Reference Range Interpretation Comments POC A PCO2 (test code = POC A PCO2) 40 35-45 N [facility] HospitalZlizelaPXWEJZAFE7014-93-47 19:08:00 Test Item Value Reference Range Interpretation Comments POC A Ca Ion (test code = POC A Ca Ion) 1.26 1.16-1.30 N [facility] HospitalEsevdjcHQJZZIBJB7978-89-22 19:08:00 Test Item Value Reference Range Interpretation Comments POC A Source (test code = POC A Source) ART [facility] HospitalQduviwtSGQDFKTJY9246-31-70 19:08:00 Test Item Value Reference Range Interpretation Comments POC A Temp (test code = POC A Temp) 37.0 [facility] HospitalCkhcayhYVOUGSIRU4883-59-66 19:08:00 Test Item Value Reference Range Interpretation Comments POC A PO2 (test code = POC A PO2) 85 80-100 N [facility] HospitalNhlamqvXLVBQNVYP5058-00-54 19:08:00 Test Item Value Reference Range Interpretation Comments POC A pH (test code = POC A pH) 7.39 7.35-7.45 N [facility] HospitalNrcusaxZENDVXEYK7942-43-02 19:08:00 Test Item Value Reference Range Interpretation Comments POC A Glu (test code = POC A Glu) 152 70-99 H [facility] HospitalZelmxjsOTNIFSFUO3197-49-06 19:08:00 Test Item Value Reference Range Interpretation Comments POC A LA (test code = POC A LA) 0.7 0.5-2.2 N [facility] HospitalMrdiwviSIMHRKEND2710-44-83 19:08:00 Test Item Value Reference Range Interpretation Comments POC A HCO3 (test code = POC A HCO3) 24 22-26 N [facility] HospitalTebrnffKTNFWNYKH6618-39-69 19:08:00 Test Item Value Reference Range Interpretation Comments POC A BE (test code = POC A BE) -1 <=2 N [facility] HospitalOzskhdcSCNZEHGDF4161-00-18 19:08:00 Test Item Value Reference Range Interpretation Comments POC A Hct (test code = POC A Hct) 35.0 36.0-48.0 L [facility] HospitalCelwducVTBPVXFBI7541-28-05 19:08:00 Test Item Value Reference Range Interpretation Comments POC A O2 Sat (test code = POC A O2 Sat) 96.0 95.0-100.0 N [facility] HospitalXfhuujxXBLCQNHEH9945-59-13 19:08:00 Test Item Value Reference Range Interpretation Comments POC A K (test code = POC A K) 3.4 3.5-5.1 L [facility] HospitalRltnlrxMYWATPAQO5779-30-12 19:08:00 Test Item Value Reference Range Interpretation Comments POC A Na (test code = POC A Na) 138 135-145 N [facility] HospitalBatrkmlYJCGEFBWI0366-94-40 19:08:00 Test Item Value Reference Range Interpretation Comments POC A PCO2 (test code = POC A PCO2) 40 35-45 N [facility] HospitalVpasuuzIFYWRPKNO5710-38-28 19:08:00 Test Item Value Reference Range Interpretation Comments POC A Ca Ion (test code = POC A Ca Ion) 1.26 1.16-1.30 N [facility] HospitalFtzochxWFWQFRRBZ1780-70-60 19:08:00 Test Item Value Reference Range Interpretation Comments POC A Source (test code = POC A Source) ART [facility] HospitalXjdnyqtTLMHYXFCP4807-51-92 19:08:00 Test Item Value Reference Range Interpretation Comments POC A Temp (test code = POC A Temp) 37.0 [facility] HospitalRbesguoUVRCZODCG7028-67-18 19:08:00 Test Item Value Reference Range Interpretation Comments POC A PO2 (test code = POC A PO2) 85 80-100 N [facility] HospitalRnfeuqqBXBDXJIFU1312-07-25 19:08:00 Test Item Value Reference Range Interpretation Comments POC A pH (test code = POC A pH) 7.39 7.35-7.45 N [facility] HospitalUhyxgzsXOQOIRKLN4988-22-72 19:08:00 Test Item Value Reference Range Interpretation Comments POC A Glu (test code = POC A Glu) 152 70-99 H [facility] HospitalAmfyijsJGNIVFIWW0309-04-45 19:08:00 Test Item Value Reference Range Interpretation Comments POC A LA (test code = POC A LA) 0.7 0.5-2.2 N [facility] HospitalBtkgjnqKXOMZEKNX9373-68-51 19:08:00 Test Item Value Reference Range Interpretation Comments POC A HCO3 (test code = POC A HCO3) 24 22-26 N [facility] HospitalLqxgevoASDRLFBHB8716-51-55 19:08:00 Test Item Value Reference Range Interpretation Comments POC A BE (test code = POC A BE) -1 <=2 N [facility] HospitalCcuvoihETAMYGUCV3360-18-68 19:08:00 Test Item Value Reference Range Interpretation Comments POC A Hct (test code = POC A Hct) 35.0 36.0-48.0 L [facility] HospitalIlarmpcBESJZAVWU9971-08-91 19:08:00 Test Item Value Reference Range Interpretation Comments POC A O2 Sat (test code = POC A O2 Sat) 96.0 95.0-100.0 N [facility] HospitalZjojvjpJOEBZBZQP7372-06-93 19:08:00 Test Item Value Reference Range Interpretation Comments POC A K (test code = POC A K) 3.4 3.5-5.1 L [facility] HospitalRgtbokjXIWTARWTR8361-64-21 19:08:00 Test Item Value Reference Range Interpretation Comments POC A Na (test code = POC A Na) 138 135-145 N [facility] HospitalTsxypylREHTWQEHU7469-15-63 19:08:00 Test Item Value Reference Range Interpretation Comments POC A PCO2 (test code = POC A PCO2) 40 35-45 N [facility] HospitalJcdxmflPSKKIUZVN7338-27-19 19:08:00 Test Item Value Reference Range Interpretation Comments POC A Ca Ion (test code = POC A Ca Ion) 1.26 1.16-1.30 N [facility] HospitalMwpchxtXNJJBSGTM6004-39-28 19:08:00 Test Item Value Reference Range Interpretation Comments POC A Source (test code = POC A Source) ART [facility] HospitalGozxettKVKILWYST4202-16-63 19:08:00 Test Item Value Reference Range Interpretation Comments POC A Temp (test code = POC A Temp) 37.0 [facility] HospitalEcvqrntHPXBNCDXL4798-33-09 19:08:00 Test Item Value Reference Range Interpretation Comments POC A PO2 (test code = POC A PO2) 85 80-100 N [facility] HospitalXrtysfsRKXSACNCI7906-77-02 19:08:00 Test Item Value Reference Range Interpretation Comments POC A pH (test code = POC A pH) 7.39 7.35-7.45 N [facility] HospitalPasjzwsLDPJGWQOL6752-26-25 19:08:00 Test Item Value Reference Range Interpretation Comments POC A Glu (test code = POC A Glu) 152 70-99 H [facility] HospitalAqwtougLJVEBGTNV8387-52-49 19:08:00 Test Item Value Reference Range Interpretation Comments POC A LA (test code = POC A LA) 0.7 0.5-2.2 N [facility] HospitalAmdisrfPSPKNWKSN7627-16-56 19:08:00 Test Item Value Reference Range Interpretation Comments POC A HCO3 (test code = POC A HCO3) 24 22-26 N [facility] HospitalJyihapgBVGTSNNQJ9784-03-09 19:08:00 Test Item Value Reference Range Interpretation Comments POC A BE (test code = POC A BE) -1 <=2 N [facility] HospitalAonrouhRLCCEPKUI3730-55-91 19:08:00 Test Item Value Reference Range Interpretation Comments POC A Hct (test code = POC A Hct) 35.0 36.0-48.0 L [facility] HospitalNthjdrlYOOSJRAKS0968-10-36 19:08:00 Test Item Value Reference Range Interpretation Comments POC A O2 Sat (test code = POC A O2 Sat) 96.0 95.0-100.0 N [facility] HospitalMytdnxaETKGUXUMF1326-76-00 19:08:00 Test Item Value Reference Range Interpretation Comments POC A K (test code = POC A K) 3.4 3.5-5.1 L [facility] HospitalKnghbtbEAPSDMHPC0887-06-58 19:08:00 Test Item Value Reference Range Interpretation Comments POC A Na (test code = POC A Na) 138 135-145 N [facility] HospitalAjivburPSQKGFMCK5569-42-53 19:08:00 Test Item Value Reference Range Interpretation Comments POC A PCO2 (test code = POC A PCO2) 40 35-45 N [facility] HospitalDtnzdgoGWZRNQUWV7160-96-39 19:08:00 Test Item Value Reference Range Interpretation Comments POC A Ca Ion (test code = POC A Ca Ion) 1.26 1.16-1.30 N [facility] HospitalQjfzdnwCIQHDZJZA6138-16-19 19:08:00 Test Item Value Reference Range Interpretation Comments POC A Source (test code = POC A Source) ART [facility] HospitalSzssbhhCQKLKJSVG2432-14-48 19:08:00 Test Item Value Reference Range Interpretation Comments POC A Temp (test code = POC A Temp) 37.0 [facility] HospitalMvkaikdFJGKVZWUJ2826-65-80 19:08:00 Test Item Value Reference Range Interpretation Comments POC A PO2 (test code = POC A PO2) 85 80-100 N [facility] HospitalUbgxebsRQVHFYMXR4413-73-43 19:08:00 Test Item Value Reference Range Interpretation Comments POC A pH (test code = POC A pH) 7.39 7.35-7.45 N [facility] HospitalNeeareeHRIKZHJTP0383-38-59 19:08:00 Test Item Value Reference Range Interpretation Comments POC A Glu (test code = POC A Glu) 152 70-99 H [facility] HospitalOtbrqzzZJGMHDOOU8245-82-60 19:08:00 Test Item Value Reference Range Interpretation Comments POC A LA (test code = POC A LA) 0.7 0.5-2.2 N [facility] HospitalWmukmgbSAVJPDHLI4818-84-60 19:08:00 Test Item Value Reference Range Interpretation Comments POC A HCO3 (test code = POC A HCO3) 24 22-26 N [facility] HospitalUyhbinlXOCQBAQGI8415-87-51 19:08:00 Test Item Value Reference Range Interpretation Comments POC A BE (test code = POC A BE) -1 <=2 N [facility] HospitalNfifcbwBASLONMGM8035-66-45 19:08:00 Test Item Value Reference Range Interpretation Comments POC A Hct (test code = POC A Hct) 35.0 36.0-48.0 L [facility] HospitalMvfpjerFNZDWBTKZ7509-25-01 19:08:00 Test Item Value Reference Range Interpretation Comments POC A O2 Sat (test code = POC A O2 Sat) 96.0 95.0-100.0 N [facility] HospitalXjqfjaoXPEQALEWI9601-48-25 19:08:00 Test Item Value Reference Range Interpretation Comments POC A K (test code = POC A K) 3.4 3.5-5.1 L [facility] HospitalGfofdxqJZKLPDIDP0397-25-37 19:08:00 Test Item Value Reference Range Interpretation Comments POC A Na (test code = POC A Na) 138 135-145 N [facility] HospitalSrjvibdZTEXQFZWW8106-16-28 19:08:00 Test Item Value Reference Range Interpretation Comments POC A PCO2 (test code = POC A PCO2) 40 35-45 N [facility] HospitalJoqpnkvFKSQIIOGL6212-18-93 19:08:00 Test Item Value Reference Range Interpretation Comments POC A Ca Ion (test code = POC A Ca Ion) 1.26 1.16-1.30 N [facility] HospitalNmkbqpzVMWFDKTOW6913-19-54 19:08:00 Test Item Value Reference Range Interpretation Comments POC A Source (test code = POC A Source) ART [facility] HospitalCbnpnfjGZKINSJDW9190-61-37 19:08:00 Test Item Value Reference Range Interpretation Comments POC A Temp (test code = POC A Temp) 37.0 [facility] HospitalXthrgviUTKBBGTUE2793-33-53 19:08:00 Test Item Value Reference Range Interpretation Comments POC A PO2 (test code = POC A PO2) 85 80-100 N [facility] HospitalYqynuxpWPARVFOBL2897-02-13 19:08:00 Test Item Value Reference Range Interpretation Comments POC A pH (test code = POC A pH) 7.39 7.35-7.45 N [facility] HospitalJrkidxxSEZWBRMRY8553-71-49 19:08:00 Test Item Value Reference Range Interpretation Comments POC A Glu (test code = POC A Glu) 152 70-99 H [facility] HospitalAbojvifLGCHWVIGA2932-42-04 19:08:00 Test Item Value Reference Range Interpretation Comments POC A LA (test code = POC A LA) 0.7 0.5-2.2 N [facility] HospitalToukkguEXIMCOHNP9369-99-80 19:08:00 Test Item Value Reference Range Interpretation Comments POC A HCO3 (test code = POC A HCO3) 24 22-26 N [facility] HospitalBtqfyjwRYEBJEQJK0294-03-94 19:08:00 Test Item Value Reference Range Interpretation Comments POC A BE (test code = POC A BE) -1 <=2 N [facility] HospitalMczxafbKYUDHGFQY3394-81-62 19:08:00 Test Item Value Reference Range Interpretation Comments POC A Hct (test code = POC A Hct) 35.0 36.0-48.0 L [facility] HospitalOyylmvxUNRLUOYPI6753-33-38 19:08:00 Test Item Value Reference Range Interpretation Comments POC A O2 Sat (test code = POC A O2 Sat) 96.0 95.0-100.0 N [facility] HospitalHebbrpjIUOSNVWUV7753-63-27 19:08:00 Test Item Value Reference Range Interpretation Comments POC A K (test code = POC A K) 3.4 3.5-5.1 L [facility] HospitalUwsszivNOLUKRBGX7244-52-33 19:08:00 Test Item Value Reference Range Interpretation Comments POC A Na (test code = POC A Na) 138 135-145 N [facility] HospitalHknwhduYRMHEMKUU7885-67-26 19:08:00 Test Item Value Reference Range Interpretation Comments POC A PCO2 (test code = POC A PCO2) 40 35-45 N [facility] HospitalYyfbueuIYNCJMKDB8044-52-47 19:08:00 Test Item Value Reference Range Interpretation Comments POC A Ca Ion (test code = POC A Ca Ion) 1.26 1.16-1.30 N [facility] HospitalTadnnsbFSAJMCPMT7128-73-83 19:08:00 Test Item Value Reference Range Interpretation Comments POC A Source (test code = POC A Source) ART [facility] HospitalZizwprvISGABEOVP0760-01-27 19:08:00 Test Item Value Reference Range Interpretation Comments POC A Temp (test code = POC A Temp) 37.0 [facility] HospitalEdznhcfPUYPVLMSZ0408-60-48 19:08:00 Test Item Value Reference Range Interpretation Comments POC A PO2 (test code = POC A PO2) 85 80-100 N [facility] HospitalJncsbwxFNEAAAJXG8277-89-34 19:08:00 Test Item Value Reference Range Interpretation Comments POC A pH (test code = POC A pH) 7.39 7.35-7.45 N [facility] HospitalHlvtednLFTXJFNHC3038-42-36 19:08:00 Test Item Value Reference Range Interpretation Comments POC A Glu (test code = POC A Glu) 152 70-99 H [facility] HospitalVbeyonnZSKJEJFHV3941-69-69 19:08:00 Test Item Value Reference Range Interpretation Comments POC A LA (test code = POC A LA) 0.7 0.5-2.2 N [facility] HospitalNxezwyzJVPFHFUMG1430-01-79 19:08:00 Test Item Value Reference Range Interpretation Comments POC A HCO3 (test code = POC A HCO3) 24 22-26 N [facility] HospitalAqzpiwoBJMPQXIXF4628-39-36 19:08:00 Test Item Value Reference Range Interpretation Comments POC A BE (test code = POC A BE) -1 <=2 N [facility] HospitalXfpszhdPOPOCBPKW9310-69-34 19:08:00 Test Item Value Reference Range Interpretation Comments POC A Hct (test code = POC A Hct) 35.0 36.0-48.0 L [facility] HospitalChtmngzYSQAODVUY1329-09-07 19:08:00 Test Item Value Reference Range Interpretation Comments POC A O2 Sat (test code = POC A O2 Sat) 96.0 95.0-100.0 N [facility] HospitalLvkvpcvLCFFHUPMM5428-35-01 19:08:00 Test Item Value Reference Range Interpretation Comments POC A K (test code = POC A K) 3.4 3.5-5.1 L [facility] HospitalVekudhfIBXBRCUOS1250-20-95 19:08:00 Test Item Value Reference Range Interpretation Comments POC A Na (test code = POC A Na) 138 135-145 N [facility] HospitalKshkgjgEVJRKYXXT8438-84-77 19:08:00 Test Item Value Reference Range Interpretation Comments POC A PCO2 (test code = POC A PCO2) 40 35-45 N [facility] HospitalHcfpivxAOEOYAQIP3099-82-37 19:08:00 Test Item Value Reference Range Interpretation Comments POC A Ca Ion (test code = POC A Ca Ion) 1.26 1.16-1.30 N [facility] HospitalZeykxceSQBYYHRMK7388-24-58 19:08:00 Test Item Value Reference Range Interpretation Comments POC A Source (test code = POC A Source) ART [facility] HospitalBwazmdkMDBIEGXSE9261-49-84 19:08:00 Test Item Value Reference Range Interpretation Comments POC A Temp (test code = POC A Temp) 37.0 [facility] HospitalArbjggpGALBJNWIR5026-87-89 19:08:00 Test Item Value Reference Range Interpretation Comments POC A PO2 (test code = POC A PO2) 85 80-100 N [facility] HospitalNjptccaENRDCSUMV8404-02-46 19:08:00 Test Item Value Reference Range Interpretation Comments POC A pH (test code = POC A pH) 7.39 7.35-7.45 N [facility] HospitalJjmemerJEECNSFRW3478-14-81 19:08:00 Test Item Value Reference Range Interpretation Comments POC A Glu (test code = POC A Glu) 152 70-99 H [facility] HospitalXeprbviJQSQDEXNX7507-25-71 19:08:00 Test Item Value Reference Range Interpretation Comments POC A LA (test code = POC A LA) 0.7 0.5-2.2 N [facility] HospitalWisqaaqJHJFIABAX2638-53-09 19:08:00 Test Item Value Reference Range Interpretation Comments POC A HCO3 (test code = POC A HCO3) 24 22-26 N [facility] HospitalGdcmrdzZVGFBPMSW7839-56-32 19:08:00 Test Item Value Reference Range Interpretation Comments POC A BE (test code = POC A BE) -1 <=2 N [facility] HospitalVghlvupEFXRXAMAF2706-07-26 19:08:00 Test Item Value Reference Range Interpretation Comments POC A Hct (test code = POC A Hct) 35.0 36.0-48.0 L [facility] HospitalQsstdiuQATPNTXUD8218-13-14 19:08:00 Test Item Value Reference Range Interpretation Comments POC A O2 Sat (test code = POC A O2 Sat) 96.0 95.0-100.0 N [facility] HospitalFfhxbrtRMVFOHLTI0126-82-13 19:08:00 Test Item Value Reference Range Interpretation Comments POC A K (test code = POC A K) 3.4 3.5-5.1 L [facility] HospitalEhfkppuSWYHOIUOG5924-23-33 19:08:00 Test Item Value Reference Range Interpretation Comments POC A Na (test code = POC A Na) 138 135-145 N [facility] HospitalRwaczwySRNTVOZOT4008-04-41 19:08:00 Test Item Value Reference Range Interpretation Comments POC A PCO2 (test code = POC A PCO2) 40 35-45 N [facility] HospitalWmdlissVBVXYTJGK5845-49-31 19:08:00 Test Item Value Reference Range Interpretation Comments POC A Ca Ion (test code = POC A Ca Ion) 1.26 1.16-1.30 N [facility] HospitalOxstngfNCQRFPOTY3562-46-20 19:08:00 Test Item Value Reference Range Interpretation Comments POC A Source (test code = POC A Source) ART [facility] HospitalZkvmxygLVUMWURMY2127-69-24 19:08:00 Test Item Value Reference Range Interpretation Comments POC A Temp (test code = POC A Temp) 37.0 [facility] HospitalVntrizkSDCPIRSFQ7370-66-16 19:08:00 Test Item Value Reference Range Interpretation Comments POC A PO2 (test code = POC A PO2) 85 80-100 N [facility] HospitalCgyzldlIJIFWDACO3275-80-07 19:08:00 Test Item Value Reference Range Interpretation Comments POC A pH (test code = POC A pH) 7.39 7.35-7.45 N [facility] HospitalXngsvrsEEYVUJAIY4377-53-85 19:08:00 Test Item Value Reference Range Interpretation Comments POC A Glu (test code = POC A Glu) 152 70-99 H [facility] HospitalQuzjakyPHALZAFRI0804-67-38 19:08:00 Test Item Value Reference Range Interpretation Comments POC A LA (test code = POC A LA) 0.7 0.5-2.2 N [facility] HospitalKqlzgxfKPUMAMIVE3373-37-03 19:08:00 Test Item Value Reference Range Interpretation Comments POC A HCO3 (test code = POC A HCO3) 24 22-26 N [facility] HospitalLzsejhkSEJPDCEBQ6900-40-53 19:08:00 Test Item Value Reference Range Interpretation Comments POC A BE (test code = POC A BE) -1 <=2 N [facility] HospitalPiljiegJCVVJJNZC9283-29-97 19:08:00 Test Item Value Reference Range Interpretation Comments POC A Hct (test code = POC A Hct) 35.0 36.0-48.0 L [facility] HospitalDykioddTRQCUTEDR1225-93-99 19:08:00 Test Item Value Reference Range Interpretation Comments POC A O2 Sat (test code = POC A O2 Sat) 96.0 95.0-100.0 N [facility] HospitalCsxchspGSAGIJIXL7286-76-80 19:08:00 Test Item Value Reference Range Interpretation Comments POC A K (test code = POC A K) 3.4 3.5-5.1 L [facility] HospitalIryrmhrCDIRYBFIV1480-73-70 19:08:00 Test Item Value Reference Range Interpretation Comments POC A Na (test code = POC A Na) 138 135-145 N [facility] HospitalApdecghGZWPANHAI6545-80-82 19:08:00 Test Item Value Reference Range Interpretation Comments POC A PCO2 (test code = POC A PCO2) 40 35-45 N [facility] HospitalOsdinmnUIOAQAPKM7462-70-82 19:08:00 Test Item Value Reference Range Interpretation Comments POC A Ca Ion (test code = POC A Ca Ion) 1.26 1.16-1.30 N [facility] HospitalGuxrknbDXLCSWTTU5802-68-48 19:08:00 Test Item Value Reference Range Interpretation Comments POC A Source (test code = POC A Source) [facility] HospitalSssuyrzLLDALSMJS7505-55-21 19:08:00 Test Item Value Reference Range Interpretation Comments POC A Temp (test code = POC A Temp) 37.0 [facility] HospitalBesfdltHJNEGJVOG0509-11-81 19:08:00 Test Item Value Reference Range Interpretation Comments POC A PO2 (test code = POC A PO2) 85 80-100 N [facility] HospitalCkupsniLUDRUMKZK1266-60-78 19:08:00 Test Item Value Reference Range Interpretation Comments POC A pH (test code = POC A pH) 7.39 7.35-7.45 N [facility] HospitalAungevbNQNDNOGHZ8066-42-10 19:08:00 Test Item Value Reference Range Interpretation Comments POC A Glu (test code = POC A Glu) 152 70-99 H [facility] HospitalQgvpmqxREQVKNGSS1084-72-88 19:08:00 Test Item Value Reference Range Interpretation Comments POC A LA (test code = POC A LA) 0.7 0.5-2.2 N [facility] HospitalXsknvxpUOJVHDQBI8208-50-48 19:08:00 Test Item Value Reference Range Interpretation Comments POC A HCO3 (test code = POC A HCO3) 24 22-26 N [facility] HospitalKkxbdqpKDKQOONMK3192-09-46 19:08:00 Test Item Value Reference Range Interpretation Comments POC A BE (test code = -1 See_Comment N [Auto mated message] The POC A BE) system which ge nerated this result transmit juan reference range : <=2. The reference range was not used to interpr et this result as polina l/abnormal. [facility] HospitalJepjebdHUQXJHBCN1105-69-66 19:08:00 Test Item Value Reference Range Interpretation Comments POC A Hct (test code = POC A Hct) 35.0 36.0-48.0 L [facility] HospitalGomhwgxRPQKZNJDS7927-93-09 19:08:00 Test Item Value Reference Range Interpretation Comments POC A O2 Sat (test code = POC A O2 Sat) 96.0 95.0-100.0 N [facility] HospitalBoneuwfLYLFZTFFT4730-49-64 19:08:00 Test Item Value Reference Range Interpretation Comments POC A K (test code = POC A K) 3.4 3.5-5.1 L [facility] HospitalMjieygyAJWPCTPFT4994-51-04 19:08:00 Test Item Value Reference Range Interpretation Comments POC A Na (test code = POC A Na) 138 135-145 N [facility] HospitalOoalgfuNJQIOSXTV3337-97-64 19:08:00 Test Item Value Reference Range Interpretation Comments POC A PCO2 (test code = POC A PCO2) 40 35-45 N [facility] HospitalHflnqouORITVDACE7299-44-44 19:08:00 Test Item Value Reference Range Interpretation Comments POC A Ca Ion (test code = POC A Ca Ion) 1.26 1.16-1.30 N [facility] HospitalYbkdjvaCCXQNCDUR6728-63-43 19:08:00 Test Item Value Reference Range Interpretation Comments POC A Source (test code = POC A Source) [facility] HospitalYnyhuyzVWOVUPXXU7212-40-41 19:08:00 Test Item Value Reference Range Interpretation Comments POC A Temp (test code = POC A Temp) 37.0 [facility] HospitalJbuefqmDALRYOVAB0135-90-29 19:08:00 Test Item Value Reference Range Interpretation Comments POC A PO2 (test code = POC A PO2) 85 80-100 N [facility] HospitalNhsstioHMYSNHEBG0266-90-08 19:08:00 Test Item Value Reference Range Interpretation Comments POC A pH (test code = POC A pH) 7.39 7.35-7.45 N [facility] HospitalWzrsewfAJHZQJYVL5874-21-87 19:08:00 Test Item Value Reference Range Interpretation Comments POC A Glu (test code = POC A Glu) 152 70-99 H [facility] HospitalOoxuovcVYAEJBDVH7129-90-14 19:08:00 Test Item Value Reference Range Interpretation Comments POC A LA (test code = POC A LA) 0.7 0.5-2.2 N [facility] HospitalCabgpahPLZEFOBLS3269-77-35 19:08:00 Test Item Value Reference Range Interpretation Comments POC A HCO3 (test code = POC A HCO3) 24 22-26 N [facility] HospitalVmffmonDHKPIWFEL2178-48-24 19:08:00 Test Item Value Reference Range Interpretation Comments POC A BE (test code = POC A BE) -1 <=2 N [facility] HospitalAurbncaOWPZCPTIY6125-18-95 19:08:00 Test Item Value Reference Range Interpretation Comments POC A Hct (test code = POC A Hct) 35.0 36.0-48.0 L [facility] HospitalIzbssykELTXCWHLI6578-19-04 19:08:00 Test Item Value Reference Range Interpretation Comments POC A O2 Sat (test code = POC A O2 Sat) 96.0 95.0-100.0 N [facility] HospitalMdgppvaFRBSRJKAD2336-88-71 19:08:00 Test Item Value Reference Range Interpretation Comments POC A K (test code = POC A K) 3.4 3.5-5.1 L [facility] HospitalRlozuidWUABYVTXJ0887-78-46 19:08:00 Test Item Value Reference Range Interpretation Comments POC A Na (test code = POC A Na) 138 135-145 N [facility] HospitalBagxjkhRHHLSXIXA2784-00-49 19:08:00 Test Item Value Reference Range Interpretation Comments POC A PCO2 (test code = POC A PCO2) 40 35-45 N [facility] HospitalRcpakcfEQYEYDWMN2330-78-57 19:08:00 Test Item Value Reference Range Interpretation Comments POC A Ca Ion (test code = POC A Ca Ion) 1.26 1.16-1.30 N [facility] HospitalRyhvmljSQPSFKPHF8435-93-48 19:08:00 Test Item Value Reference Range Interpretation Comments POC A Source (test code = POC A Source) ART [facility] HospitalDvlygckOGFBHXKTL0512-90-55 19:08:00 Test Item Value Reference Range Interpretation Comments POC A Temp (test code = POC A Temp) 37.0 [facility] HospitalBvuymsiNRNUXOZXC9828-94-36 19:08:00 Test Item Value Reference Range Interpretation Comments POC A PO2 (test code = POC A PO2) 85 80-100 N [facility] HospitalWttgjhaICBJMDIDO1238-50-09 19:08:00 Test Item Value Reference Range Interpretation Comments POC A pH (test code = POC A pH) 7.39 7.35-7.45 N [facility] HospitalNbwmkasGJDYZMRQI6340-84-34 17:27:00 Test Item Value Reference Range Interpretation Comments POC A PCO2 (test code = POC A PCO2) 44 35-45 N [facility] HospitalAjgfrodAPHJIQQJS9067-23-27 17:27:00 Test Item Value Reference Range Interpretation Comments POC A BE (test code = 1 See_Comment N [Auto mated message] The POC A BE) system which ge nerated this result transmit juan reference range : <=2. The reference range was not used to interpr et this result as polina l/abnormal. [facility] HospitalMwybzzqKYDJJVWCM5302-91-48 17:27:00 Test Item Value Reference Range Interpretation Comments POC A HCO3 (test code = POC A HCO3) 26 22-26 N [facility] HospitalQsblowuIICESQDEG3924-46-05 17:27:00 Test Item Value Reference Range Interpretation Comments POC A PO2 (test code = POC A PO2) 161 80-100 H [facility] HospitalXteglhgPQOMOFFOW8536-97-28 17:27:00 Test Item Value Reference Range Interpretation Comments POC A Na (test code = POC A Na) 137 135-145 N [facility] HospitalCptbbgfXKFTGORIR3333-00-21 17:27:00 Test Item Value Reference Range Interpretation Comments POC A Ca Ion (test code = POC A Ca Ion) 1.29 1.16-1.30 N [facility] HospitalKffjqkyNQTNUNTAY9989-19-20 17:27:00 Test Item Value Reference Range Interpretation Comments POC A O2 Sat (test code = POC A O2 Sat) 99.0 95.0-100.0 N [facility] HospitalWqiyvesNRVIINQZI6448-91-52 17:27:00 Test Item Value Reference Range Interpretation Comments POC A K (test code = POC A K) 3.9 3.5-5.1 N [facility] HospitalWjqlrswAMFNJYCOH7364-63-97 17:27:00 Test Item Value Reference Range Interpretation Comments POC A Hct (test code = POC A Hct) 38.0 36.0-48.0 N [facility] HospitalLnovrynDITCWCPUQ3862-60-03 17:27:00 Test Item Value Reference Range Interpretation Comments POC A Source (test code = POC A Source) ART [facility] HospitalYnjoutaLTDXNWPOJ4663-64-21 17:27:00 Test Item Value Reference Range Interpretation Comments POC A pH (test code = POC A pH) 7.38 7.35-7.45 N [facility] HospitalMvnehcoLIPLEHVCF0174-82-16 17:27:00 Test Item Value Reference Range Interpretation Comments POC A Temp (test code = POC A Temp) 37.0 [facility] HospitalMdeadxoQENTOLFLZ8787-47-92 17:27:00 Test Item Value Reference Range Interpretation Comments POC A Glu (test code = POC A Glu) 150 70-99 H [facility] HospitalEqccwvmFUCAYLKEL9510-38-99 17:27:00 Test Item Value Reference Range Interpretation Comments POC A LA (test code = POC A LA) 1.1 0.5-2.2 N [facility] HospitalWyojolkTNHJHZQHI1946-63-40 17:27:00 Test Item Value Reference Range Interpretation Comments POC A PCO2 (test code = POC A PCO2) 44 35-45 N [facility] HospitalSmonddhXNCCGLCWR0735-01-55 17:27:00 Test Item Value Reference Range Interpretation Comments POC A BE (test code = 1 See_Comment N [Auto mated message] The POC A BE) system which ge nerated this result transmit juan reference range : <=2. The reference range was not used to interpr et this result as polina l/abnormal. [facility] HospitalSqrtgshWZKLBQEJC9138-01-17 17:27:00 Test Item Value Reference Range Interpretation Comments POC A HCO3 (test code = POC A HCO3) 26 22-26 N [facility] HospitalCkwufiqFFLSRPGTG9507-75-31 17:27:00 Test Item Value Reference Range Interpretation Comments POC A PO2 (test code = POC A PO2) 161 80-100 H [facility] HospitalExgqavdJKARHJXMY8593-74-94 17:27:00 Test Item Value Reference Range Interpretation Comments POC A Na (test code = POC A Na) 137 135-145 N [facility] HospitalBgtityvMAKMVOGTD0688-21-33 17:27:00 Test Item Value Reference Range Interpretation Comments POC A Ca Ion (test code = POC A Ca Ion) 1.29 1.16-1.30 N [facility] HospitalPjbbbyzSSXWJTXVC0591-81-99 17:27:00 Test Item Value Reference Range Interpretation Comments POC A O2 Sat (test code = POC A O2 Sat) 99.0 95.0-100.0 N [facility] HospitalLjvacnaTCTPWNJZV9994-49-65 17:27:00 Test Item Value Reference Range Interpretation Comments POC A K (test code = POC A K) 3.9 3.5-5.1 N [facility] HospitalHbqdreeHKUPZPYZC3021-55-94 17:27:00 Test Item Value Reference Range Interpretation Comments POC A Hct (test code = POC A Hct) 38.0 36.0-48.0 N [facility] HospitalSmslttpOTCMUCUMV0499-95-58 17:27:00 Test Item Value Reference Range Interpretation Comments POC A Source (test code = POC A Source) ART [facility] HospitalLkjliweTDTSGSYPY5606-66-57 17:27:00 Test Item Value Reference Range Interpretation Comments POC A pH (test code = POC A pH) 7.38 7.35-7.45 N [facility] HospitalVhvnbjeDKFMJEGMH6215-89-66 17:27:00 Test Item Value Reference Range Interpretation Comments POC A Temp (test code = POC A Temp) 37.0 [facility] HospitalCykbogvOYHNNXZQP2660-53-36 17:27:00 Test Item Value Reference Range Interpretation Comments POC A Glu (test code = POC A Glu) 150 70-99 H [facility] HospitalAhojszyHUQTZPMKK8843-98-72 17:27:00 Test Item Value Reference Range Interpretation Comments POC A LA (test code = POC A LA) 1.1 0.5-2.2 N [facility] HospitalSgjqtimHVYSNCLLM9589-77-28 17:27:00 Test Item Value Reference Range Interpretation Comments POC A PCO2 (test code = POC A PCO2) 44 35-45 N [facility] HospitalIcuemvcSPRHYKZCX3918-87-64 17:27:00 Test Item Value Reference Range Interpretation Comments POC A BE (test code = 1 See_Comment N [Auto mated message] The POC A BE) system which ge nerated this result transmit juan reference range : <=2. The reference range was not used to interpr et this result as polina l/abnormal. [facility] HospitalWbssdkuMWDHHCPZL8646-08-65 17:27:00 Test Item Value Reference Range Interpretation Comments POC A HCO3 (test code = POC A HCO3) 26 22-26 N [facility] HospitalTiyaeahSYDRRBYZB0422-15-92 17:27:00 Test Item Value Reference Range Interpretation Comments POC A PO2 (test code = POC A PO2) 161 80-100 H [facility] HospitalDoxekujQNJVSPPJG5415-26-45 17:27:00 Test Item Value Reference Range Interpretation Comments POC A Na (test code = POC A Na) 137 135-145 N [facility] HospitalHcpwdczLRDTZKALB7017-25-14 17:27:00 Test Item Value Reference Range Interpretation Comments POC A Ca Ion (test code = POC A Ca Ion) 1.29 1.16-1.30 N [facility] HospitalKqmggexPBNLVRDOE8426-17-66 17:27:00 Test Item Value Reference Range Interpretation Comments POC A O2 Sat (test code = POC A O2 Sat) 99.0 95.0-100.0 N [facility] HospitalVhmpmopYRRQVNVOJ5562-98-36 17:27:00 Test Item Value Reference Range Interpretation Comments POC A K (test code = POC A K) 3.9 3.5-5.1 N [facility] HospitalNytkpdqUHIKQJRBE3895-96-00 17:27:00 Test Item Value Reference Range Interpretation Comments POC A Hct (test code = POC A Hct) 38.0 36.0-48.0 N [facility] HospitalQtfuqhuXNCMYNBFG7056-87-31 17:27:00 Test Item Value Reference Range Interpretation Comments POC A Source (test code = POC A Source) ART [facility] HospitalRhprtulQYJUUKVID0856-25-14 17:27:00 Test Item Value Reference Range Interpretation Comments POC A pH (test code = POC A pH) 7.38 7.35-7.45 N [facility] HospitalQmrtopdKQBVDMQIL5325-90-51 17:27:00 Test Item Value Reference Range Interpretation Comments POC A Temp (test code = POC A Temp) 37.0 [facility] HospitalCqjegqbVUVAJBQSL1287-96-04 17:27:00 Test Item Value Reference Range Interpretation Comments POC A Glu (test code = POC A Glu) 150 70-99 H [facility] HospitalUqpyfjeEZFQXKIPC3748-90-25 17:27:00 Test Item Value Reference Range Interpretation Comments POC A LA (test code = POC A LA) 1.1 0.5-2.2 N [facility] HospitalKmwvehkNWOFTYNUR2879-71-96 17:27:00 Test Item Value Reference Range Interpretation Comments POC A PCO2 (test code = POC A PCO2) 44 35-45 N [facility] HospitalWubaqmvEIORWNJPG3442-28-20 17:27:00 Test Item Value Reference Range Interpretation Comments POC A BE (test code = 1 See_Comment N [Auto mated message] The POC A BE) system which ge nerated this result transmit juan reference range : <=2. The reference range was not used to interpr et this result as polina l/abnormal. [facility] HospitalZpszolyBJCGTEVWD7868-09-02 17:27:00 Test Item Value Reference Range Interpretation Comments POC A HCO3 (test code = POC A HCO3) 26 22-26 N [facility] HospitalVgdpxvtCKPLPRPMS4086-28-42 17:27:00 Test Item Value Reference Range Interpretation Comments POC A PO2 (test code = POC A PO2) 161 80-100 H [facility] HospitalJuzerdgXSDLSISMB5866-55-61 17:27:00 Test Item Value Reference Range Interpretation Comments POC A Na (test code = POC A Na) 137 135-145 N [facility] HospitalHpgzrswFKKOYGRTM7043-97-64 17:27:00 Test Item Value Reference Range Interpretation Comments POC A Ca Ion (test code = POC A Ca Ion) 1.29 1.16-1.30 N [facility] HospitalYdeytlmKWFROUZGR6487-55-11 17:27:00 Test Item Value Reference Range Interpretation Comments POC A O2 Sat (test code = POC A O2 Sat) 99.0 95.0-100.0 N [facility] HospitalBltsbkfKRATOKOUN5939-16-47 17:27:00 Test Item Value Reference Range Interpretation Comments POC A K (test code = POC A K) 3.9 3.5-5.1 N [facility] HospitalCcxneqyMATIAJLZC2318-83-48 17:27:00 Test Item Value Reference Range Interpretation Comments POC A Hct (test code = POC A Hct) 38.0 36.0-48.0 N [facility] HospitalAukgjmnQPWKSHSUR1801-20-79 17:27:00 Test Item Value Reference Range Interpretation Comments POC A Source (test code = POC A Source) ART [facility] HospitalOnszrleVQXXVAJCU2604-04-40 17:27:00 Test Item Value Reference Range Interpretation Comments POC A pH (test code = POC A pH) 7.38 7.35-7.45 N [facility] HospitalUrjumbwHJKIJCTWD0052-29-59 17:27:00 Test Item Value Reference Range Interpretation Comments POC A Temp (test code = POC A Temp) 37.0 [facility] HospitalEzkhohvVURZMZTSO6518-05-47 17:27:00 Test Item Value Reference Range Interpretation Comments POC A Glu (test code = POC A Glu) 150 70-99 H [facility] HospitalKrlkzopCFPXCCTTS1527-10-56 17:27:00 Test Item Value Reference Range Interpretation Comments POC A LA (test code = POC A LA) 1.1 0.5-2.2 N [facility] HospitalVrefnhuTJWMSTFQD2238-04-92 17:27:00 Test Item Value Reference Range Interpretation Comments POC A PCO2 (test code = POC A PCO2) 44 35-45 N [facility] HospitalXfsynxoNLQBDBPYJ5521-64-33 17:27:00 Test Item Value Reference Range Interpretation Comments POC A BE (test code = 1 See_Comment N [Auto mated message] The POC A BE) system which ge nerated this result transmit juan reference range : <=2. The reference range was not used to interpr et this result as polina l/abnormal. [facility] HospitalKrxtdppTTVYAOQDW8168-16-23 17:27:00 Test Item Value Reference Range Interpretation Comments POC A HCO3 (test code = POC A HCO3) 26 22-26 N [facility] HospitalHwogjarEPNFIBOAR4827-38-28 17:27:00 Test Item Value Reference Range Interpretation Comments POC A PO2 (test code = POC A PO2) 161 80-100 H [facility] HospitalNdcsmwxEYQIWUSZA5285-20-58 17:27:00 Test Item Value Reference Range Interpretation Comments POC A Na (test code = POC A Na) 137 135-145 N [facility] HospitalJyiqfzrPPGXYEKQQ2531-13-27 17:27:00 Test Item Value Reference Range Interpretation Comments POC A Ca Ion (test code = POC A Ca Ion) 1.29 1.16-1.30 N [facility] HospitalGqxtymaMEEMKPPBB6460-52-76 17:27:00 Test Item Value Reference Range Interpretation Comments POC A O2 Sat (test code = POC A O2 Sat) 99.0 95.0-100.0 N [facility] HospitalWisbbwuIZLQJINLG1851-86-91 17:27:00 Test Item Value Reference Range Interpretation Comments POC A K (test code = POC A K) 3.9 3.5-5.1 N [facility] HospitalMayxlnxNCFJICRYF5945-52-59 17:27:00 Test Item Value Reference Range Interpretation Comments POC A Hct (test code = POC A Hct) 38.0 36.0-48.0 N [facility] HospitalKtjhttzLJQDBAFLQ3312-87-02 17:27:00 Test Item Value Reference Range Interpretation Comments POC A Source (test code = POC A Source) ART [facility] HospitalCnhkojaSLCYFWEZY1971-19-31 17:27:00 Test Item Value Reference Range Interpretation Comments POC A pH (test code = POC A pH) 7.38 7.35-7.45 N [facility] HospitalEqxxdikVEYFSETLN9706-90-17 17:27:00 Test Item Value Reference Range Interpretation Comments POC A Temp (test code = POC A Temp) 37.0 [facility] HospitalZtmraeuLQHAUQVTS6147-69-66 17:27:00 Test Item Value Reference Range Interpretation Comments POC A Glu (test code = POC A Glu) 150 70-99 H [facility] HospitalTmwsjqjCMYSLMJOA9884-91-10 17:27:00 Test Item Value Reference Range Interpretation Comments POC A LA (test code = POC A LA) 1.1 0.5-2.2 N [facility] HospitalHuryzhsPKFIAVDSZ2961-39-97 17:27:00 Test Item Value Reference Range Interpretation Comments POC A PCO2 (test code = POC A PCO2) 44 35-45 N [facility] HospitalIjcnvrzPDMMCWHHR8439-75-68 17:27:00 Test Item Value Reference Range Interpretation Comments POC A BE (test code = 1 See_Comment N [Auto mated message] The POC A BE) system which ge nerated this result transmit juan reference range : <=2. The reference range was not used to interpr et this result as polina l/abnormal. [facility] HospitalObsakxuXWWRAVOSM1458-27-79 17:27:00 Test Item Value Reference Range Interpretation Comments POC A HCO3 (test code = POC A HCO3) 26 22-26 N [facility] HospitalCkmhqniLTOIDJGOO6012-61-50 17:27:00 Test Item Value Reference Range Interpretation Comments POC A PO2 (test code = POC A PO2) 161 80-100 H [facility] HospitalUkfljfrQNQTCNKOG4215-51-01 17:27:00 Test Item Value Reference Range Interpretation Comments POC A Na (test code = POC A Na) 137 135-145 N [facility] HospitalXrhqniaAWXFXCQTX8949-27-12 17:27:00 Test Item Value Reference Range Interpretation Comments POC A Ca Ion (test code = POC A Ca Ion) 1.29 1.16-1.30 N [facility] HospitalCtersjiTZWHCPKTT8042-57-13 17:27:00 Test Item Value Reference Range Interpretation Comments POC A O2 Sat (test code = POC A O2 Sat) 99.0 95.0-100.0 N [facility] HospitalFqzuiesSBDGPAQPP6531-85-77 17:27:00 Test Item Value Reference Range Interpretation Comments POC A K (test code = POC A K) 3.9 3.5-5.1 N [facility] HospitalOfjbmpxCPRQYUJAF0038-75-03 17:27:00 Test Item Value Reference Range Interpretation Comments POC A Hct (test code = POC A Hct) 38.0 36.0-48.0 N [facility] HospitalIoiommrRIXEENEXR5058-56-74 17:27:00 Test Item Value Reference Range Interpretation Comments POC A Source (test code = POC A Source) ART [facility] HospitalXdahxzcOSMRWDSAQ9380-53-39 17:27:00 Test Item Value Reference Range Interpretation Comments POC A pH (test code = POC A pH) 7.38 7.35-7.45 N [facility] HospitalGqeihnrZCBKMZGPE1898-16-32 17:27:00 Test Item Value Reference Range Interpretation Comments POC A Temp (test code = POC A Temp) 37.0 [facility] HospitalPhkxhqoCPPIQBXIK1948-42-65 17:27:00 Test Item Value Reference Range Interpretation Comments POC A Glu (test code = POC A Glu) 150 70-99 H [facility] HospitalAwqyqhnYRHQYSAKY4742-56-06 17:27:00 Test Item Value Reference Range Interpretation Comments POC A LA (test code = POC A LA) 1.1 0.5-2.2 N [facility] HospitalMyfzddgWITJJFEGS8016-33-65 17:27:00 Test Item Value Reference Range Interpretation Comments POC A PCO2 (test code = POC A PCO2) 44 35-45 N [facility] HospitalHlgipqtGMDEGSRPD5836-22-88 17:27:00 Test Item Value Reference Range Interpretation Comments POC A BE (test code = POC A BE) 1 <=2 N [facility] HospitalFprmmzuYRPBDMJQM0184-06-67 17:27:00 Test Item Value Reference Range Interpretation Comments POC A HCO3 (test code = POC A HCO3) 26 22-26 N [facility] HospitalYepsdmxRFLIJYHTM6279-25-97 17:27:00 Test Item Value Reference Range Interpretation Comments POC A PO2 (test code = POC A PO2) 161 80-100 H [facility] HospitalOmgqlxpHJJDBPHHX0750-01-79 17:27:00 Test Item Value Reference Range Interpretation Comments POC A Na (test code = POC A Na) 137 135-145 N [facility] HospitalUytbyytISXMZWSDO2053-55-92 17:27:00 Test Item Value Reference Range Interpretation Comments POC A Ca Ion (test code = POC A Ca Ion) 1.29 1.16-1.30 N [facility] HospitalZofpkawPNRQVNPRH4189-67-84 17:27:00 Test Item Value Reference Range Interpretation Comments POC A O2 Sat (test code = POC A O2 Sat) 99.0 95.0-100.0 N [facility] HospitalAyjfpmmPBQSYDHTW8488-21-79 17:27:00 Test Item Value Reference Range Interpretation Comments POC A K (test code = POC A K) 3.9 3.5-5.1 N [facility] HospitalEpdjnurORCBHRVSV9744-51-96 17:27:00 Test Item Value Reference Range Interpretation Comments POC A Hct (test code = POC A Hct) 38.0 36.0-48.0 N [facility] HospitalNeuozabNZRDWMIAW3697-12-31 17:27:00 Test Item Value Reference Range Interpretation Comments POC A Source (test code = POC A Source) ART [facility] HospitalNdvkhveGNXERRLHC7882-42-44 17:27:00 Test Item Value Reference Range Interpretation Comments POC A pH (test code = POC A pH) 7.38 7.35-7.45 N [facility] HospitalYqrihgfKQHKKGOOK6220-87-78 17:27:00 Test Item Value Reference Range Interpretation Comments POC A Temp (test code = POC A Temp) 37.0 [facility] HospitalGrgbbvgOGIXAHRPT6841-38-15 17:27:00 Test Item Value Reference Range Interpretation Comments POC A Glu (test code = POC A Glu) 150 70-99 H [facility] HospitalQwevdggHWQOWKZTL5751-35-33 17:27:00 Test Item Value Reference Range Interpretation Comments POC A LA (test code = POC A LA) 1.1 0.5-2.2 N [facility] HospitalFtylstqFAWZYIYEN0770-38-82 17:27:00 Test Item Value Reference Range Interpretation Comments POC A PCO2 (test code = POC A PCO2) 44 35-45 N [facility] HospitalGvbovpjMTESPANIR0448-19-18 17:27:00 Test Item Value Reference Range Interpretation Comments POC A BE (test code = POC A BE) 1 <=2 N [facility] HospitalMkqnwfbEHLDMLMLW6416-32-98 17:27:00 Test Item Value Reference Range Interpretation Comments POC A HCO3 (test code = POC A HCO3) 26 22-26 N [facility] HospitalFcsdfxrFWRPOVIKO8766-76-60 17:27:00 Test Item Value Reference Range Interpretation Comments POC A PO2 (test code = POC A PO2) 161 80-100 H [facility] HospitalMobmysbAUCQRKHMQ2705-12-06 17:27:00 Test Item Value Reference Range Interpretation Comments POC A Na (test code = POC A Na) 137 135-145 N [facility] HospitalAmsbhziOUGXBIQNB1934-46-83 17:27:00 Test Item Value Reference Range Interpretation Comments POC A Ca Ion (test code = POC A Ca Ion) 1.29 1.16-1.30 N [facility] HospitalLxjrjgfUTRDTBRYI4349-85-72 17:27:00 Test Item Value Reference Range Interpretation Comments POC A O2 Sat (test code = POC A O2 Sat) 99.0 95.0-100.0 [facility]RhftbfsZIAFMRUEU4740-69-95 17:27:00 Test Item Value Reference Range Interpretation Comments POC A K (test code = POC A K) 3.9 3.5-5.1 N [facility] HospitalCilxenpCWZPLRAED3689-59-31 17:27:00 Test Item Value Reference Range Interpretation Comments POC A Hct (test code = POC A Hct) 38.0 36.0-48.0 N [facility] HospitalHezghbcUEFFXVEFW5597-30-82 17:27:00 Test Item Value Reference Range Interpretation Comments POC A Source (test code = POC A Source) ART [facility] HospitalLagwtidCSZEJGPNZ1889-61-50 17:27:00 Test Item Value Reference Range Interpretation Comments POC A pH (test code = POC A pH) 7.38 7.35-7.45 N [facility] HospitalWsflslqRVQWJJURO2473-95-35 17:27:00 Test Item Value Reference Range Interpretation Comments POC A Temp (test code = POC A Temp) 37.0 [facility] HospitalRtinihuZFYLEZRRK7248-96-39 17:27:00 Test Item Value Reference Range Interpretation Comments POC A Glu (test code = POC A Glu) 150 70-99 H [facility] HospitalVjqtjybIEZXCHUDR7104-74-11 17:27:00 Test Item Value Reference Range Interpretation Comments POC A LA (test code = POC A LA) 1.1 0.5-2.2 N [facility] HospitalYcalmkuRRCKAORCC4284-60-05 17:27:00 Test Item Value Reference Range Interpretation Comments POC A PCO2 (test code = POC A PCO2) 44 35-45 N [facility] HospitalGjuvpncBCUPCEPZZ7547-26-09 17:27:00 Test Item Value Reference Range Interpretation Comments POC A BE (test code = 1 See_Comment N [Auto mated message] The POC A BE) system which ge nerated this result transmit juan reference range : <=2. The reference range was not used to interpr et this result as polina l/abnormal. [facility] HospitalVurkgzdGFHSPTZAM3783-46-53 17:27:00 Test Item Value Reference Range Interpretation Comments POC A HCO3 (test code = POC A HCO3) 26 22-26 N [facility] HospitalGxihjjoIFIZYLHSY3017-54-95 17:27:00 Test Item Value Reference Range Interpretation Comments POC A PO2 (test code = POC A PO2) 161 80-100 H [facility] HospitalYzvvqbfLBIASCVDK4763-10-59 17:27:00 Test Item Value Reference Range Interpretation Comments POC A Na (test code = POC A Na) 137 135-145 N [facility] HospitalIzvsevyJLKXWDNFG2951-98-25 17:27:00 Test Item Value Reference Range Interpretation Comments POC A Ca Ion (test code = POC A Ca Ion) 1.29 1.16-1.30 N [facility] HospitalNujwtjzMWHOPHZXA8140-93-00 17:27:00 Test Item Value Reference Range Interpretation Comments POC A O2 Sat (test code = POC A O2 Sat) 99.0 95.0-100.0 N [facility] HospitalJbbhmkjYTJRGONNU0505-89-56 17:27:00 Test Item Value Reference Range Interpretation Comments POC A K (test code = POC A K) 3.9 3.5-5.1 N [facility] HospitalZqqcrdlHFMULXOFI8460-43-65 17:27:00 Test Item Value Reference Range Interpretation Comments POC A Hct (test code = POC A Hct) 38.0 36.0-48.0 N [facility] HospitalYxcxoijTONYXFODD7411-80-26 17:27:00 Test Item Value Reference Range Interpretation Comments POC A Source (test code = POC A Source) ART [facility] HospitalCnlzjnjFYAGRYBOA0194-56-06 17:27:00 Test Item Value Reference Range Interpretation Comments POC A pH (test code = POC A pH) 7.38 7.35-7.45 N [facility] HospitalFeppnctPGYOHTQPD2740-69-81 17:27:00 Test Item Value Reference Range Interpretation Comments POC A Temp (test code = POC A Temp) 37.0 [facility] HospitalLhxkfhlOXOLHLGVP3677-34-24 17:27:00 Test Item Value Reference Range Interpretation Comments POC A Glu (test code = POC A Glu) 150 70-99 H [facility] HospitalMyyakqvQTGWINFLD9688-54-18 17:27:00 Test Item Value Reference Range Interpretation Comments POC A LA (test code = POC A LA) 1.1 0.5-2.2 N [facility] HospitalIkndegvTOCWKDAUB5420-53-15 17:27:00 Test Item Value Reference Range Interpretation Comments POC A PCO2 (test code = POC A PCO2) 44 35-45 N [facility] HospitalYhnppdgPLBZXIXZP8459-47-20 17:27:00 Test Item Value Reference Range Interpretation Comments POC A BE (test code = POC A BE) 1 <=2 N [facility] HospitalDjpurkqAHASBZTHV5967-09-06 17:27:00 Test Item Value Reference Range Interpretation Comments POC A HCO3 (test code = POC A HCO3) 26 22-26 N [facility] HospitalJohqcfzQBUVEGWNN6137-17-24 17:27:00 Test Item Value Reference Range Interpretation Comments POC A PO2 (test code = POC A PO2) 161 80-100 H [facility] HospitalSqmwjpjEICYNYIOW2038-34-11 17:27:00 Test Item Value Reference Range Interpretation Comments POC A Na (test code = POC A Na) 137 135-145 N [facility] HospitalMygofkjIHISJFFQW5459-24-04 17:27:00 Test Item Value Reference Range Interpretation Comments POC A Ca Ion (test code = POC A Ca Ion) 1.29 1.16-1.30 N [facility] HospitalLbkhywpNTFZPBRTM4291-81-58 17:27:00 Test Item Value Reference Range Interpretation Comments POC A O2 Sat (test code = POC A O2 Sat) 99.0 95.0-100.0 N [facility] HospitalCqtqjitMVACMQMCW1952-97-86 17:27:00 Test Item Value Reference Range Interpretation Comments POC A K (test code = POC A K) 3.9 3.5-5.1 N [facility] HospitalQcbopxrEGSKGWJJS6714-63-42 17:27:00 Test Item Value Reference Range Interpretation Comments POC A Hct (test code = POC A Hct) 38.0 36.0-48.0 N [facility] HospitalWqieqorFTJMSCIGC1915-79-80 17:27:00 Test Item Value Reference Range Interpretation Comments POC A Source (test code = POC A Source) ART [facility] HospitalCiwxvqgDRIJCNFVX1042-02-07 17:27:00 Test Item Value Reference Range Interpretation Comments POC A pH (test code = POC A pH) 7.38 7.35-7.45 N [facility] HospitalMcnywldSLTAQAEHB5738-66-55 17:27:00 Test Item Value Reference Range Interpretation Comments POC A Temp (test code = POC A Temp) 37.0 [facility] HospitalNiaekcnYNZAJUKXH8591-39-21 17:27:00 Test Item Value Reference Range Interpretation Comments POC A Glu (test code = POC A Glu) 150 70-99 H [facility] HospitalGcoiohoMDVYEQWXH7126-40-64 17:27:00 Test Item Value Reference Range Interpretation Comments POC A LA (test code = POC A LA) 1.1 0.5-2.2 N [facility] HospitalLceeygqUEKLHTDIR3756-64-60 17:27:00 Test Item Value Reference Range Interpretation Comments POC A PCO2 (test code = POC A PCO2) 44 35-45 N [facility] HospitalAsxhrzkVCAGXCZSA4362-43-11 17:27:00 Test Item Value Reference Range Interpretation Comments POC A BE (test code = POC A BE) 1 <=2 N [facility] HospitalVozazklXSIDVCKML4796-71-49 17:27:00 Test Item Value Reference Range Interpretation Comments POC A HCO3 (test code = POC A HCO3) 26 22-26 N [facility] HospitalMqsdglwYDUKBBYEQ2394-98-75 17:27:00 Test Item Value Reference Range Interpretation Comments POC A PO2 (test code = POC A PO2) 161 80-100 H [facility] HospitalNwifkrkODLUHJNMI4782-40-28 17:27:00 Test Item Value Reference Range Interpretation Comments POC A Na (test code = POC A Na) 137 135-145 N [facility] HospitalJwotrumACTIDZHGC1986-20-77 17:27:00 Test Item Value Reference Range Interpretation Comments POC A Ca Ion (test code = POC A Ca Ion) 1.29 1.16-1.30 N [facility] HospitalAccqfhgVAIYHBXAX0776-59-78 17:27:00 Test Item Value Reference Range Interpretation Comments POC A O2 Sat (test code = POC A O2 Sat) 99.0 95.0-100.0 N [facility] HospitalGxycxrwBRXEMPFUR6329-57-76 17:27:00 Test Item Value Reference Range Interpretation Comments POC A K (test code = POC A K) 3.9 3.5-5.1 N [facility] HospitalZwnahhyOKIJXAKHO7097-34-78 17:27:00 Test Item Value Reference Range Interpretation Comments POC A Hct (test code = POC A Hct) 38.0 36.0-48.0 N [facility] HospitalVblsnjmFQNQZSGMX2259-16-28 17:27:00 Test Item Value Reference Range Interpretation Comments POC A Source (test code = POC A Source) ART [facility] HospitalWafpwucRNLSODKAZ6168-40-59 17:27:00 Test Item Value Reference Range Interpretation Comments POC A pH (test code = POC A pH) 7.38 7.35-7.45 N [facility] HospitalYdmhaqoTSWMGPGPE5960-82-15 17:27:00 Test Item Value Reference Range Interpretation Comments POC A Temp (test code = POC A Temp) 37.0 [facility] HospitalQrkelzlIQDVWTKOG7066-35-62 17:27:00 Test Item Value Reference Range Interpretation Comments POC A Glu (test code = POC A Glu) 150 70-99 H [facility] HospitalEzhkusjFXANQVZGY9178-58-89 17:27:00 Test Item Value Reference Range Interpretation Comments POC A LA (test code = POC A LA) 1.1 0.5-2.2 N [facility] HospitalWsfkzjcFVMMXGDQB5080-87-00 17:27:00 Test Item Value Reference Range Interpretation Comments POC A PCO2 (test code = POC A PCO2) 44 35-45 N [facility] HospitalFlfdeanFRLBVQXRW3519-90-57 17:27:00 Test Item Value Reference Range Interpretation Comments POC A BE (test code = POC A BE) 1 <=2 N [facility] HospitalOsufntwZLVKDWCLY2589-77-13 17:27:00 Test Item Value Reference Range Interpretation Comments POC A HCO3 (test code = POC A HCO3) 26 22-26 N [facility] HospitalMwnzkyfGWIPUPVCE9085-03-19 17:27:00 Test Item Value Reference Range Interpretation Comments POC A PO2 (test code = POC A PO2) 161 80-100 H [facility] HospitalPtpwjiiSSMTEUMJC4539-54-54 17:27:00 Test Item Value Reference Range Interpretation Comments POC A Na (test code = POC A Na) 137 135-145 N [facility] HospitalGimiuoiZVOYEEYCO7770-04-86 17:27:00 Test Item Value Reference Range Interpretation Comments POC A Ca Ion (test code = POC A Ca Ion) 1.29 1.16-1.30 N [facility] HospitalXrornmlEMWPIVJGI5620-78-24 17:27:00 Test Item Value Reference Range Interpretation Comments POC A O2 Sat (test code = POC A O2 Sat) 99.0 95.0-100.0 N [facility] HospitalMnbdtlyPIULLHZRJ4558-11-41 17:27:00 Test Item Value Reference Range Interpretation Comments POC A K (test code = POC A K) 3.9 3.5-5.1 N [facility] HospitalGpredtjTVKIJGZOS1308-56-27 17:27:00 Test Item Value Reference Range Interpretation Comments POC A Hct (test code = POC A Hct) 38.0 36.0-48.0 N [facility] HospitalCcbpyspJLAVAABYN1415-30-33 17:27:00 Test Item Value Reference Range Interpretation Comments POC A Source (test code = POC A Source) ART [facility] HospitalZdnlwvtNWGXFCJUR9978-81-07 17:27:00 Test Item Value Reference Range Interpretation Comments POC A pH (test code = POC A pH) 7.38 7.35-7.45 N [facility] HospitalJytqokmEPQWDIIBF4214-97-16 17:27:00 Test Item Value Reference Range Interpretation Comments POC A Temp (test code = POC A Temp) 37.0 [facility] HospitalPuwgzaqXACEXOTHB4519-18-94 17:27:00 Test Item Value Reference Range Interpretation Comments POC A Glu (test code = POC A Glu) 150 70-99 H [facility] HospitalKwuhzkjLUSNVCKAL2538-82-07 17:27:00 Test Item Value Reference Range Interpretation Comments POC A LA (test code = POC A LA) 1.1 0.5-2.2 N [facility] HospitalOcbrbqxDNSSOFLSF6421-53-13 17:27:00 Test Item Value Reference Range Interpretation Comments POC A PCO2 (test code = POC A PCO2) 44 35-45 N [facility] HospitalTczmpkpKIFPMTFMP3700-66-03 17:27:00 Test Item Value Reference Range Interpretation Comments POC A BE (test code = POC A BE) 1 <=2 N [facility] HospitalQcreqrrFYFXPXBBQ4801-89-34 17:27:00 Test Item Value Reference Range Interpretation Comments POC A HCO3 (test code = POC A HCO3) 26 22-26 N [facility] HospitalUhupctaLAFADABLF0745-32-95 17:27:00 Test Item Value Reference Range Interpretation Comments POC A PO2 (test code = POC A PO2) 161 80-100 H [facility] HospitalYysubhjTSHWYDPMT9166-88-94 17:27:00 Test Item Value Reference Range Interpretation Comments POC A Na (test code = POC A Na) 137 135-145 N [facility] HospitalXbadurnNFUWHEEFU5919-50-78 17:27:00 Test Item Value Reference Range Interpretation Comments POC A Ca Ion (test code = POC A Ca Ion) 1.29 1.16-1.30 N [facility] HospitalGbqkzgdNEGJSXWDP4231-97-23 17:27:00 Test Item Value Reference Range Interpretation Comments POC A O2 Sat (test code = POC A O2 Sat) 99.0 95.0-100.0 N [facility] HospitalErkyblcMBSGVDPFN8047-99-78 17:27:00 Test Item Value Reference Range Interpretation Comments POC A K (test code = POC A K) 3.9 3.5-5.1 N [facility] HospitalSnqrupqJWTLPWRJQ9777-76-90 17:27:00 Test Item Value Reference Range Interpretation Comments POC A Hct (test code = POC A Hct) 38.0 36.0-48.0 N [facility] HospitalDixvdjvZPSNGMUCM3556-68-48 17:27:00 Test Item Value Reference Range Interpretation Comments POC A Source (test code = POC A Source) ART [facility] HospitalMollrpfNAIQWORRQ2742-57-50 17:27:00 Test Item Value Reference Range Interpretation Comments POC A pH (test code = POC A pH) 7.38 7.35-7.45 N [facility] HospitalDmeargzMDANWMTGM7988-41-59 17:27:00 Test Item Value Reference Range Interpretation Comments POC A Temp (test code = POC A Temp) 37.0 [facility] HospitalGblcnybUPQVDCTVS8340-46-01 17:27:00 Test Item Value Reference Range Interpretation Comments POC A Glu (test code = POC A Glu) 150 70-99 H [facility] HospitalLssnnzyUAMTMRFKU7886-70-61 17:27:00 Test Item Value Reference Range Interpretation Comments POC A LA (test code = POC A LA) 1.1 0.5-2.2 N [facility] HospitalMreitcwPARXTAOUU7633-56-98 17:27:00 Test Item Value Reference Range Interpretation Comments POC A PCO2 (test code = POC A PCO2) 44 35-45 N [facility] HospitalCdqmjxjAUJHSNSAG3073-35-81 17:27:00 Test Item Value Reference Range Interpretation Comments POC A BE (test code = POC A BE) 1 <=2 N [facility] HospitalLvevnntPDVFOYXNV6048-00-92 17:27:00 Test Item Value Reference Range Interpretation Comments POC A HCO3 (test code = POC A HCO3) 26 22-26 N [facility] HospitalAspmikzLSTKDJMQS9554-97-18 17:27:00 Test Item Value Reference Range Interpretation Comments POC A PO2 (test code = POC A PO2) 161 80-100 H [facility] HospitalMlsnmxpOWPSUBZAH4805-00-03 17:27:00 Test Item Value Reference Range Interpretation Comments POC A Na (test code = POC A Na) 137 135-145 N [facility] HospitalBqyxrpsAQUKVETSQ0067-23-88 17:27:00 Test Item Value Reference Range Interpretation Comments POC A Ca Ion (test code = POC A Ca Ion) 1.29 1.16-1.30 N [facility] HospitalWsprwxuAOSXDKLLU4451-32-48 17:27:00 Test Item Value Reference Range Interpretation Comments POC A O2 Sat (test code = POC A O2 Sat) 99.0 95.0-100.0 N [facility] HospitalTqyygdvMEAQHGNDJ9373-71-68 17:27:00 Test Item Value Reference Range Interpretation Comments POC A K (test code = POC A K) 3.9 3.5-5.1 N [facility] HospitalMnpgkigQNRQHVHFR7819-16-49 17:27:00 Test Item Value Reference Range Interpretation Comments POC A Hct (test code = POC A Hct) 38.0 36.0-48.0 N [facility] HospitalRjmwnsiKMZNMCJBF9161-50-45 17:27:00 Test Item Value Reference Range Interpretation Comments POC A Source (test code = POC A Source) ART [facility] HospitalLkpzkzuIFVGTICXM4318-51-98 17:27:00 Test Item Value Reference Range Interpretation Comments POC A pH (test code = POC A pH) 7.38 7.35-7.45 N [facility] HospitalSrbibgsYVKTMYHAY3582-55-54 17:27:00 Test Item Value Reference Range Interpretation Comments POC A Temp (test code = POC A Temp) 37.0 [facility] HospitalMruudfpDGMHMXACQ9186-14-38 17:27:00 Test Item Value Reference Range Interpretation Comments POC A Glu (test code = POC A Glu) 150 70-99 H [facility] HospitalWuwmzmiQEWBABJSP7989-54-00 17:27:00 Test Item Value Reference Range Interpretation Comments POC A LA (test code = POC A LA) 1.1 0.5-2.2 N [facility] HospitalYxekuqkBLPPSIUMJ9955-69-48 17:27:00 Test Item Value Reference Range Interpretation Comments POC A PCO2 (test code = POC A PCO2) 44 35-45 N [facility] HospitalZsvyfmkIFOCMZTOU5197-31-48 17:27:00 Test Item Value Reference Range Interpretation Comments POC A BE (test code = POC A BE) 1 <=2 N [facility] HospitalWtbvzmvIJZGQDQWO6221-50-24 17:27:00 Test Item Value Reference Range Interpretation Comments POC A HCO3 (test code = POC A HCO3) 26 22-26 N [facility] HospitalPmafhtnPBHFEZIXK1318-77-01 17:27:00 Test Item Value Reference Range Interpretation Comments POC A PO2 (test code = POC A PO2) 161 80-100 H [facility] HospitalHoyjbcrBMIBIYKII5785-45-00 17:27:00 Test Item Value Reference Range Interpretation Comments POC A Na (test code = POC A Na) 137 135-145 N [facility] HospitalHvciwqjWVWTSOSKQ1821-36-89 17:27:00 Test Item Value Reference Range Interpretation Comments POC A Ca Ion (test code = POC A Ca Ion) 1.29 1.16-1.30 N [facility] HospitalOlehpvjFBZALAMMI4136-97-19 17:27:00 Test Item Value Reference Range Interpretation Comments POC A O2 Sat (test code = POC A O2 Sat) 99.0 95.0-100.0 N [facility] HospitalPwapklcOLPOQQMAT0473-34-66 17:27:00 Test Item Value Reference Range Interpretation Comments POC A K (test code = POC A K) 3.9 3.5-5.1 N [facility] HospitalRxptdweJYTMWATDZ3575-46-61 17:27:00 Test Item Value Reference Range Interpretation Comments POC A Hct (test code = POC A Hct) 38.0 36.0-48.0 N [facility] HospitalStvvctfTMSYAXNAU0554-12-15 17:27:00 Test Item Value Reference Range Interpretation Comments POC A Source (test code = POC A Source) ART [facility] HospitalMbizcklMXPHVYKKW8086-18-97 17:27:00 Test Item Value Reference Range Interpretation Comments POC A pH (test code = POC A pH) 7.38 7.35-7.45 N [facility] HospitalAnlvcarMGYJZNIGQ3593-78-85 17:27:00 Test Item Value Reference Range Interpretation Comments POC A Temp (test code = POC A Temp) 37.0 [facility] HospitalFumrhlpVZQCMAJAC6113-73-10 17:27:00 Test Item Value Reference Range Interpretation Comments POC A Glu (test code = POC A Glu) 150 70-99 H [facility] HospitalBimkzudZQHXRNRBL6931-08-67 17:27:00 Test Item Value Reference Range Interpretation Comments POC A LA (test code = POC A LA) 1.1 0.5-2.2 N [facility] HospitalHwmtmnfXAZXZTCRR9928-10-32 17:27:00 Test Item Value Reference Range Interpretation Comments POC A PCO2 (test code = POC A PCO2) 44 35-45 N [facility] HospitalQwitzctBWNMNYIOB4350-13-79 17:27:00 Test Item Value Reference Range Interpretation Comments POC A BE (test code = POC A BE) 1 <=2 N [facility] HospitalSsghaxiXLLYQMJMK5384-87-47 17:27:00 Test Item Value Reference Range Interpretation Comments POC A HCO3 (test code = POC A HCO3) 26 22-26 N [facility] HospitalIfoytcoEQJAMYGXT4219-26-88 17:27:00 Test Item Value Reference Range Interpretation Comments POC A PO2 (test code = POC A PO2) 161 80-100 H [facility] HospitalFouzukbMFVPBFQHG7557-92-61 17:27:00 Test Item Value Reference Range Interpretation Comments POC A Na (test code = POC A Na) 137 135-145 N [facility] HospitalCywfoheIBTJZEKMM0200-98-71 17:27:00 Test Item Value Reference Range Interpretation Comments POC A Ca Ion (test code = POC A Ca Ion) 1.29 1.16-1.30 N [facility] HospitalDhwewoaSCYCYYXOO1661-95-80 17:27:00 Test Item Value Reference Range Interpretation Comments POC A O2 Sat (test code = POC A O2 Sat) 99.0 95.0-100.0 N [facility] HospitalGdtdyxvJEEZBLURO9132-64-88 17:27:00 Test Item Value Reference Range Interpretation Comments POC A K (test code = POC A K) 3.9 3.5-5.1 N [facility] HospitalZayijesGZRRIOQSG7877-77-87 17:27:00 Test Item Value Reference Range Interpretation Comments POC A Hct (test code = POC A Hct) 38.0 36.0-48.0 N [facility] HospitalAcxshqfURESSXHUS6298-78-90 17:27:00 Test Item Value Reference Range Interpretation Comments POC A Source (test code = POC A Source) ART [facility] HospitalJklrlnyEWDXHWXFK8595-17-72 17:27:00 Test Item Value Reference Range Interpretation Comments POC A pH (test code = POC A pH) 7.38 7.35-7.45 N [facility] HospitalYcmwdeyYWRBRDTPQ2435-94-20 17:27:00 Test Item Value Reference Range Interpretation Comments POC A Temp (test code = POC A Temp) 37.0 [facility] HospitalLjgvaysHGNFRRVWR8014-28-43 17:27:00 Test Item Value Reference Range Interpretation Comments POC A Glu (test code = POC A Glu) 150 70-99 H [facility] HospitalXdtggpfFREBBVFUH2090-40-08 17:27:00 Test Item Value Reference Range Interpretation Comments POC A LA (test code = POC A LA) 1.1 0.5-2.2 N [facility] HospitalVmyqzjvIRLAJREOT9807-63-30 17:27:00 Test Item Value Reference Range Interpretation Comments POC A PCO2 (test code = POC A PCO2) 44 35-45 N [facility] HospitalRdvocrsUFFEIMUQU7647-02-71 17:27:00 Test Item Value Reference Range Interpretation Comments POC A BE (test code = POC A BE) 1 <=2 N [facility] HospitalUfhnarkDGYLIBGLT5004-85-57 17:27:00 Test Item Value Reference Range Interpretation Comments POC A HCO3 (test code = POC A HCO3) 26 22-26 N [facility] HospitalJrfmplzAUXVYBEBQ9998-67-44 17:27:00 Test Item Value Reference Range Interpretation Comments POC A PO2 (test code = POC A PO2) 161 80-100 H [facility] HospitalEwmpxoyBFOOENCRQ7053-21-65 17:27:00 Test Item Value Reference Range Interpretation Comments POC A Na (test code = POC A Na) 137 135-145 N [facility] HospitalKdzowgsBBRCSMDZE0099-47-57 17:27:00 Test Item Value Reference Range Interpretation Comments POC A Ca Ion (test code = POC A Ca Ion) 1.29 1.16-1.30 N [facility] HospitalZccrkaoMRNRCKWVS5236-93-70 17:27:00 Test Item Value Reference Range Interpretation Comments POC A O2 Sat (test code = POC A O2 Sat) 99.0 95.0-100.0 N [facility] HospitalBfvtgktQKGISXXUV4719-64-15 17:27:00 Test Item Value Reference Range Interpretation Comments POC A K (test code = POC A K) 3.9 3.5-5.1 N [facility] HospitalTqnxvfhQIRALAVHD5311-03-41 17:27:00 Test Item Value Reference Range Interpretation Comments POC A Hct (test code = POC A Hct) 38.0 36.0-48.0 N [facility] HospitalNdvdoxnQAPMGCNSX5203-91-18 17:27:00 Test Item Value Reference Range Interpretation Comments POC A Source (test code = POC A Source) ART [facility] HospitalNviwiteASSBHSOFY8025-99-81 17:27:00 Test Item Value Reference Range Interpretation Comments POC A pH (test code = POC A pH) 7.38 7.35-7.45 N [facility] HospitalPadtnauSRSSFUGGP7856-61-72 17:27:00 Test Item Value Reference Range Interpretation Comments POC A Temp (test code = POC A Temp) 37.0 [facility] HospitalYrzbdwqCQGKMIPNC1313-48-15 17:27:00 Test Item Value Reference Range Interpretation Comments POC A Glu (test code = POC A Glu) 150 70-99 H [facility] HospitalOflxyvrCPVBRXXMW8161-26-12 17:27:00 Test Item Value Reference Range Interpretation Comments POC A LA (test code = POC A LA) 1.1 0.5-2.2 N [facility] HospitalNmsunuwEMFDHYPYW0784-08-21 17:27:00 Test Item Value Reference Range Interpretation Comments POC A PCO2 (test code = POC A PCO2) 44 35-45 N [facility] HospitalPhdappuIVLVHUCIR7841-68-60 17:27:00 Test Item Value Reference Range Interpretation Comments POC A BE (test code = 1 See_Comment N [Auto mated message] The POC A BE) system which ge nerated this result transmit juan reference range : <=2. The reference range was not used to interpr et this result as polina l/abnormal. [facility] HospitalNntmuciUDVVIJMIP8573-31-59 17:27:00 Test Item Value Reference Range Interpretation Comments POC A HCO3 (test code = POC A HCO3) 26 22-26 N [facility] HospitalYcyylzmWEHFVKIYJ3502-32-95 17:27:00 Test Item Value Reference Range Interpretation Comments POC A PO2 (test code = POC A PO2) 161 80-100 H [facility] HospitalHsqhdnzMVIEGJUCE5609-78-62 17:27:00 Test Item Value Reference Range Interpretation Comments POC A Na (test code = POC A Na) 137 135-145 N [facility] HospitalFdiyttfQOJTYNSCJ3473-14-18 17:27:00 Test Item Value Reference Range Interpretation Comments POC A Ca Ion (test code = POC A Ca Ion) 1.29 1.16-1.30 N [facility] HospitalXwcszlsMDRCNEWBP5634-19-44 17:27:00 Test Item Value Reference Range Interpretation Comments POC A O2 Sat (test code = POC A O2 Sat) 99.0 95.0-100.0 N [facility] HospitalVkgozzlQYWVDSDXW2589-36-93 17:27:00 Test Item Value Reference Range Interpretation Comments POC A K (test code = POC A K) 3.9 3.5-5.1 N [id number] 17:27:00 Test Item Value Reference Range Interpretation Comments POC A Hct (test code = POC A Hct) 38.0 36.0-48.0 N [facility]DkrluyySLATUWNAW8807-03-37 17:27:00 Test Item Value Reference Range Interpretation Comments POC A Source (test code = POC A Source) ART [id number] 17:27:00 Test Item Value Reference Range Interpretation Comments POC A pH (test code = POC A pH) 7.38 7.35-7.45 N [facility] HospitalKkjsuffEGQJMPEER3705-30-82 17:27:00 Test Item Value Reference Range Interpretation Comments POC A Temp (test code = POC A Temp) 37.0 [id number] 17:27:00 Test Item Value Reference Range Interpretation Comments POC A Glu (test code = POC A Glu) 150 70-99 H [facility] HospitalSmqtqiqIQOUXHLIJ3092-25-79 17:27:00 Test Item Value Reference Range Interpretation Comments POC A LA (test code = POC A LA) 1.1 0.5-2.2 N [facility] HospitalJmijtspHIPRTCBSG2369-44-97 17:27:00 Test Item Value Reference Range Interpretation Comments POC A PCO2 (test code = POC A PCO2) 44 35-45 N [facility] HospitalDpgmblaBOKJRNZFF9409-10-45 17:27:00 Test Item Value Reference Range Interpretation Comments POC A BE (test code = POC A BE) 1 <=2 N [facility]QvfxqweEDKCIEJRO9293-02-93 17:27:00 Test Item Value Reference Range Interpretation Comments POC A HCO3 (test code = POC A HCO3) 26 22-26 N [facility] HospitalOcmvnvlPSQSEIZUP4078-85-50 17:27:00 Test Item Value Reference Range Interpretation Comments POC A PO2 (test code = POC A PO2) 161 80-100 H [facility] HospitalZtkzrteYQIBFPJWU9878-40-13 17:27:00 Test Item Value Reference Range Interpretation Comments POC A Na (test code = POC A Na) 137 135-145 N [facility] HospitalVbikjymZELROHSVU6702-99-56 17:27:00 Test Item Value Reference Range Interpretation Comments POC A Ca Ion (test code = POC A Ca Ion) 1.29 1.16-1.30 N [facility] HospitalTgmxmuyMPUZSUZRU5071-27-80 17:27:00 Test Item Value Reference Range Interpretation Comments POC A O2 Sat (test code = POC A O2 Sat) 99.0 95.0-100.0 N [facility] HospitalHemilrtGQXFLBBQT8666-65-81 17:27:00 Test Item Value Reference Range Interpretation Comments POC A K (test code = POC A K) 3.9 3.5-5.[address] [facility] CenterEcagwwcAMNXOFAOZ4746-43-65 17:27:00 Test Item Value Reference Range Interpretation Comments POC A Hct (test code = POC A Hct) 38.0 36.0-48.[address] [facility] CenterQwxwsihFZEBUBGLW3627-62-95 17:27:00 Test Item Value Reference Range Interpretation Comments POC A Source (test code = POC A Source) ART [facility] FallsTohmneiOZWUAAHYY7501-35-06 17:27:00 Test Item Value Reference Range Interpretation Comments POC A pH (test code = POC A pH) 7.38 7.35-7.[address] [facility] CenterAxntgbaOXUCKKPIT9935-67-44 17:27:00 Test Item Value Reference Range Interpretation Comments POC A Temp (test code = POC A Temp) 37.0 [facility] CenterKuvrgjxHNFQZICFX0346-91-47 17:27:00 Test Item Value Reference Range Interpretation Comments POC A Glu (test code = POC A Glu) 150 70-[address] [facility] CenterUbkhyofIEWLWBIQF5752-47-73 17:27:00 Test Item Value Reference Range Interpretation Comments POC A LA (test code = POC A LA) 1.1 0.5-2.2 N [facility] [employer] [id number] 14:25:00 Test Item Value Reference Range Interpretation Comments ABO/Rh (test code = ABO/Rh) A NEG [facility] [employer] [id number] 14:25:00 Test Item Value Reference Range Interpretation Comments Antibody Scrn (test Negative (10/03/2012 N code = Antibody Scrn) 09:25:00) [facility] [employer] [id number] 14:25:00 Test Item Value Reference Range Interpretation Comments ABO/Rh (test code = ABO/Rh) A NEG [facility] [employer] [id number] 14:25:00 Test Item Value Reference Range Interpretation Comments Antibody Scrn (test Negative (10/03/2012 N code = Antibody Scrn) 09:25:00) [facility] [employer] [id number] 14:25:00 Test Item Value Reference Range Interpretation Comments ABO/Rh (test code = ABO/Rh) A NEG [facility] [employer] [id number] 14:25:00 Test Item Value Reference Range Interpretation Comments Antibody Scrn (test Negative (10/03/2012 N code = Antibody Scrn) 09:25:00) [facility] CenterThe [facility] [id number] 14:25:00 Test Item Value Reference Range Interpretation Comments ABO/Rh (test code = ABO/Rh) A NEG [facility] [employer] [id number] 14:25:00 Test Item Value Reference Range Interpretation Comments Antibody Scrn (test Negative (10/03/2012 N code = Antibody Scrn) 09:25:00) [facility] [employer] [id number] 14:25:00 Test Item Value Reference Range Interpretation Comments ABO/Rh (test code = ABO/Rh) A [facility] CiDRA [facility] [id number] 14:25:00 Test Item Value Reference Range Interpretation Comments Antibody Scrn (test Negative (10/03/2012 N code = Antibody Scrn) 09:25:00) [facility] [employer] [id number] 14:25:00 Test Item Value Reference Range Interpretation Comments ABO/Rh (test code = ABO/Rh) A [facility] [employer] [id number] 14:25:00 Test Item Value Reference Range Interpretation Comments Antibody Scrn (test Negative (10/03/2012 N code = Antibody Scrn) 09:25:00) [facility] [employer] [id number] 14:25:00 Test Item Value Reference Range Interpretation Comments ABO/Rh (test code = ABO/Rh) A NEG [facility] [employer] [id number] 14:25:00 Test Item Value Reference Range Interpretation Comments Antibody Scrn (test Negative (10/03/2012 N code = Antibody Scrn) 09:25:00) [facility] [employer] [id number] 14:25:00 Test Item Value Reference Range Interpretation Comments ABO/Rh (test code = ABO/Rh) A [facility] [employer] [id number] 14:25:00 Test Item Value Reference Range Interpretation Comments Antibody Scrn (test Negative (10/03/2012 N code = Antibody Scrn) 09:25:00) [facility] [employer] [id number] 14:25:00 Test Item Value Reference Range Interpretation Comments ABO/Rh (test code = ABO/Rh) A [facility] [id number] 14:25:00 Test Item Value Reference Range Interpretation Comments Antibody Scrn (test Negative (10/03/2012 N code = Antibody Scrn) 09:25:00) [facility] CenterMessage [facility]MISS[facility] [id number] 14:25:00 Test Item Value Reference Range Interpretation Comments ABO/Rh (test code = ABO/Rh) A [facility] [id number] 14:25:00 Test Item Value Reference Range Interpretation Comments Antibody Scrn (test Negative (10/03/2012 N code = Antibody Scrn) 09:25:00) [facility] CenterMessage [facility]ileMISS[facility] [id number] 14:25:00 Test Item Value Reference Range Interpretation Comments ABO/Rh (test code = ABO/Rh) A [facility] [id number] 14:25:00 Test Item Value Reference Range Interpretation Comments Antibody Scrn (test Negative (10/03/2012 N code = Antibody Scrn) 09:25:00) [facility] CenterMessage [employer]ileEle[employer] [facility] [id number] 14:25:00 Test Item Value Reference Range Interpretation Comments ABO/Rh (test code = ABO/Rh) A [facility] [id number] 14:25:00 Test Item Value Reference Range Interpretation Comments Antibody Scrn (test Negative (10/03/2012 N code = Antibody Scrn) 09:25:00) [facility] [id number] 14:25:00 Test Item Value Reference Range Interpretation Comments ABO/Rh (test code = ABO/Rh) A [facility] [id number] 14:25:00 Test Item Value Reference Range Interpretation Comments Antibody Scrn (test Negative (10/03/2012 N code = Antibody Scrn) 09:25:00) [facility] [id number] 14:25:00 Test Item Value Reference Range Interpretation Comments ABO/Rh (test code = ABO/Rh) A [facility]ASP64 [facility] [id number] 14:25:00 Test Item Value Reference Range Interpretation Comments Antibody Scrn (test Negative (10/03/2012 N code = Antibody Scrn) 09:25:00) [facility] [employer] [id number] 14:25:00 Test Item Value Reference Range Interpretation Comments ABO/Rh (test code = ABO/Rh) A [facility] [employer] [id number] 14:25:00 Test Item Value Reference Range Interpretation Comments Antibody Scrn (test Negative (10/03/2012 N code = Antibody Scrn) 09:25:00) [facility] [employer] [id number] 14:25:00 Test Item Value Reference Range Interpretation Comments ABO/Rh (test code = ABO/Rh) A NEG [facility] [employer] [id number] 14:25:00 Test Item Value Reference Range Interpretation Comments Antibody Scrn (test Negative (10/03/2012 N code = Antibody Scrn) 09:25:00) [facility] [employer] [id number] 14:25:00 Test Item Value Reference Range Interpretation Comments ABO/Rh (test code = ABO/Rh) A NEG [facility] [employer] [id number] 14:25:00 Test Item Value Reference Range Interpretation Comments Antibody Scrn (test Negative (10/03/2012 N code = Antibody Scrn) 09:25:00) [facility] [employer] [id number] 14:25:00 Test Item Value Reference Range Interpretation Comments ABO/Rh (test code = ABO/Rh) A NEG [facility] [employer] [id number] 14:25:00 Test Item Value Reference Range Interpretation Comments Antibody Scrn (test Negative (10/03/2012 N code = Antibody Scrn) 09:25:00) [facility] [employer] [id number] 14:25:00 Test Item Value Reference Range Interpretation Comments ABO/Rh (test code = ABO/Rh) A NEG [facility] [employer] [id number] 14:25:00 Test Item Value Reference Range Interpretation Comments Antibody Scrn (test Negative (10/03/2012 N code = Antibody Scrn) 09:25:00) [employer]
[2023-05-05] MEDS ORDERED: LABETALOL 20 MG/4ML SYRINGE IV ONE ×2 (03:20→06:30)
--- NOTE | 2023-05-05 05:11 | ER ---
Nurse's Notes [facility] Name: Kate Love Age: 82 yrs Sex: Female : 1940 Arrival Date: 05/05/2023 Time: 01:38 Bed 18 Private MD: Diagnosis: Repeated falls;Adult failure to thrive;Pain in ankle and joints of foot;Essential (primary) hypertension Presentation: 05/05 02:05 Chief complaint: EMS states: Pt was at home. Could not get out of the truck. Was jb4 assisted into the house, to bed, to bedside commode, and then into the ambulance and brought back here. is unable to take care of the pt at home. Pt was able to bear weight, swelling noted to be worse on both legs with worsening of bruising. Coronavirus screen: At this time, the client does not indicate any symptoms associated with coronavirus-19. Ebola Screen: No symptoms or risks identified at this time. Initial Sepsis Screen: Does the patient meet any 2 criteria? No. Patient's initial sepsis screen is negative. Does the patient have a suspected source of infection? No. Patient's initial sepsis screen is negative. Onset of symptoms was May 05, 2023. Transition of care: patient was not received from another setting of care. 02:05 Method Of Arrival: EMS: [facility] jb4 02:05 Acuity: AURELIA 3 jb4 10:16 Risk Assessment: Do you want to hurt yourself or someone else? Patient reports no tm6 desire to harm self or others. Historical: - Allergies: 02:10 No Known Allergies; jb4 - PMHx: 02:10 Asthma; cardiac stent x2; Hypertension; Diabetes - IDDM; Myocardial infarction; jb4 Hyperlipidemia; - Immunization history:: Adult Immunizations up to date. - Social history:: Smoking status: unknown. Screenin:35 [facility] ED Fall Risk Assessment (Adult) History of falling in the last 3 months, jb4 including since admission Yes- single mechanical fall (1 pt) Confusion or Disorientation Yes (5 pts) Score/Fall Risk Level 3 or more points = High Risk Oriented to surroundings, Maintained a safe environment, Educated pt \\T\\ family on fall prevention, incl call for assistance when getting out of bed. Abuse screen: Denies threats or abuse. Nutritional screening: No deficits noted. Tuberculosis screening: No symptoms or risk factors identified. Assessment: 02:35 General: Appears in no apparent distress. uncomfortable, Behavior is calm, cooperative, jb4 appropriate for age. Pain: Complains of pain in right leg and left leg Pain does not radiate. Unable to use pain scale. Patient is disoriented. FLACC scale score is 6 out of 10. Neuro: Level of Consciousness is awake, confused, lethargic, Oriented to person, time. Cardiovascular: Patient's skin is warm and dry. Respiratory: Airway is patent Respiratory effort is even, unlabored, Respiratory pattern is regular, symmetrical. GI: No signs and/or symptoms were reported involving the gastrointestinal system. : No signs and/or symptoms were reported regarding the genitourinary system. EENT: No signs and/or symptoms were reported regarding the EENT system. Derm: Skin is intact, Skin is pink, warm \\T\\ dry. Musculoskeletal: Circulation, motion, and sensation intact. Range of motion: intact in all extremities. 03:09 Reassessment: Patient appears in no apparent distress at this time. No changes from jb4 previously documented assessment. Patient and/or family updated on plan of care and expected duration. Pain level reassessed. 04:00 Reassessment: Pt resting in bed with eyes closed, respirations are even and unlabored jb4 with no s/s of pain or distress noted. 05:00 Reassessment: Patient appears in no apparent distress at this time. No changes from jb4 previously documented assessment. Patient and/or family updated on plan of care and expected duration. Pain level reassessed. 06:09 Reassessment: Patient appears in no apparent distress at this time. No changes from jb4 previously documented assessment. Patient and/or family updated on plan of care and expected duration. Pain level reassessed. 06:21 Reassessment:. Reassessment: Hematomas to the legs have not increased in size since jb4 arrival to ED. Cardiovascular: Pulses are 3+ in right dorsalis pedis artery and left dorsalis pedis artery. 08:23 Neuro: Level of Consciousness is confused, lethargic, Oriented to none. tm6 08:24 Reassessment: Prior to calling report to floor, upon patient placed in gown, found tm6 patient to be lethargic and responsive to pain. Patient disoriented, unable to stay awake, soiled in urine. Notified ERP. See MAR for orders. Hospitalist called to bedside to assess patient. New orders placed at this time. Blood sugar checked. Patient cleaned and placed on purewick. Warm blankets applied. 08:27 Reassessment: Conversation with at bedside: stated this is not tm6 patient's normal state, but started overnight. stated "I think this might be a TIA.". 10:14 Reassessment: Patient appears in no apparent distress at this time. tm6 Vital Signs: 02:05 BP 220 / 90; Pulse 78; Resp 16; Temp 98(O); Pulse Ox 98% on R/A; jb4 03:09 BP 235 / 96; Pulse 88; Resp 16; Pulse Ox 95% on R/A; jb4 04:04 BP 228 / 87; Pulse 76; Resp 16; Pulse Ox 96% on R/A; jb4 05:00 BP 217 / 85; Pulse 77; Resp 16; Pulse Ox 95% on R/A; jb4 05:45 BP 214 / 79; Pulse 78; Resp 16; Pulse Ox 96% on R/A; jb4 06:30 BP 200 / 73; Pulse 72; Resp 16; Pulse Ox 97% on R/A; jb4 08:23 BP 167 / 63; Pulse 90; Resp 17; Temp 97.8(O); Pulse Ox 97% on R/A; tm6 09:10 BP 171 / 64; Pulse 85; Pulse Ox 97% ; tm6 05:45 Provider notified of vital signs. No new orders at this time. jb4 ED Course: 01:41 Patient arrived in ED. rv1 01:42 Shorty Small MD is Attending Physician. ec2 02:05 Josue Aceves, JENNIE is Primary Nurse. jb4 02:10 Triage completed. jb4 02:10 Arm band placed on right wrist. jb4 02:35 Patient has correct armband on for positive identification. Bed in low position. Call jb4 light in reach. Side rails up X2. 02:43 Inserted saline lock: 20 gauge in right forearm, using aseptic technique. rv 03:09 CT Head C Spine In Process Unspecified. EDMS 04:04 Pelvis XRAY In Process Unspecified. EDMS 04:04 Knee Left 3 View XRAY In Process Unspecified. EDMS 04:04 Knee Right 3 View XRAY In Process Unspecified. EDMS 04:04 Tib Fib Left XRAY In Process Unspecified. EDMS 04:04 Tib Fib Right XRAY In Process Unspecified. EDMS 04:05 Ankle Left 3 View XRAY In Process Unspecified. EDMS 04:05 Ankle Right 3 View XRAY In Process Unspecified. EDMS 05:11 Nadia Fournier MD is Hospitalizing Provider. ec2 06:57 No provider procedures requiring assistance completed. Patient admitted, IV remains in jb4 place. 08:26 Warm blanket given. Head of bed elevated. Repositioned patient. Cleaned of tm6 incontinence. Linen changed. 10:16 Provided Education on: on need for linen change. tm6 Administered Medications: 03:09 Drug: Labetalol IV 10 mg IV at bolus once Route: IV; Rate: bolus; Site: right forearm; jb4 06:18 Drug: Labetalol IV 10 mg IV at bolus once Route: IV; Rate: bolus; Site: right forearm; jb4 08:23 Drug: cloNIDine PO 0.1 mg PO once Route: PO; tm6 10:13 Not Given (patient not able to swalloww): zvrcysvtci20.5 mg PO once; administer with tm6 food 10:13 Not Given (patient not able to swalloww): [id number] mg PO once tm6 Medication: 10:15 VIS not applicable for this client. tm6 Outcome: 05:11 Decision to Hospitalize by Provider. ec2 10:17 Admitted to Tele accompanied by tech, family with patient, room 402, with chart, Report tm6 called to [facility] 10:17 Condition: unchanged 10:17 Instructed on the need for admit, 10:17 Patient left the ED. tm6 Signatures: Dispatcher [employer] EDMS Josue Aceves RN RN jb4 Nitin Briones RN RN Kate Baxter rv1 Shorty Small MD MD ec2 Florentino Francisco RN RN tm6 Corrections: (The following items were deleted from the chart) 06:09 05:45 BP 214 / 79; Pulse 78bpm; Resp 16bpm; Pulse Ox 96% RA; jb4 jb4 10:15 10:14 BP 171 / 64; Pulse 85bpm; Pulse Ox 97%; tm6 tm6
--- NOTE | 2023-05-05 05:12 | EDPHYS ---
Physician Documentation [facility] Name: Kate Love Age: 82 yrs Sex: Female : 1940 Arrival Date: 05/05/2023 Time: 01:38 Bed 18 Private MD: ED Physician Shorty Small HPI: 05/05 01:49 This 82 yrs old Female presents to ER via EMS with complaints of fall. ec2 01:49 Patient recently discharged by me, patient with multiple recurrent falls, required ec2 assist at home with EMS, and patient report that she had fallen while attempting to use a bedside commode. She is on Plavix. She is complaining of pain in the bilateral legs.. Historical: - Allergies: 02:10 No Known Allergies; jb4 - PMHx: 02:10 Asthma; cardiac stent x2; Hypertension; Diabetes - IDDM; Myocardial infarction; jb4 Hyperlipidemia; - Immunization history:: Adult Immunizations up to date. - Social history:: Smoking status: unknown. ROS: 01:49 Constitutional: as per hpi ec2 Exam: 01:49 Constitutional: GEN: No acute distress HEENT: -Head: R periorbital ecchymosis -Eyes: ec2 EOMI CV: regular rate LUNGS: no respiratory distress ABD: non-tender, soft, nontender, no guarding, nonrigid SKIN: Scattered ecchymosis noted throughout MSK: RUE with scattered ecchymosis, good ROM LUE with scattered ecchymosis, good ROM RLE hematoma noted to the anterior tibia, good range of motion throughout LLE hematoma and ecchymosis noted to the left ankle, TTP NEURO: moves all extremities equally, GCS 14 (E4, V4, M6) Vital Signs: 02:05 BP 220 / 90; Pulse 78; Resp 16; Temp 98(O); Pulse Ox 98% on R/A; jb4 03:09 BP 235 / 96; Pulse 88; Resp 16; Pulse Ox 95% on R/A; jb4 04:04 BP 228 / 87; Pulse 76; Resp 16; Pulse Ox 96% on R/A; jb4 05:00 BP 217 / 85; Pulse 77; Resp 16; Pulse Ox 95% on R/A; jb4 05:45 BP 214 / 79; Pulse 78; Resp 16; Pulse Ox 96% on R/A; jb4 06:30 BP 200 / 73; Pulse 72; Resp 16; Pulse Ox 97% on R/A; jb4 08:23 BP 167 / 63; Pulse 90; Resp 17; Temp 97.8(O); Pulse Ox 97% on R/A; tm6 09:10 BP 171 / 64; Pulse 85; Pulse Ox 97% ; tm6 05:45 Provider notified of vital signs. No new orders at this time. jb4 MDM: 01:42 Patient medically screened. ec2 01:49 ED course: Patient arrives today for evaluation of recurrent falls. Examination ec2 remarkable for MSK findings as noted above. Will obtain repeat imaging, CT scan of the head, C-spine, pelvis along with bilateral lower extremities. Currently considering process such as intracranial brain bleed, C-spine fracture, tib-fib fractures, ankle fractures.. ED course: I instructed the that we will be admitting the patient to the hospital as she requires cares that he is unable to provide. 02:44 ED course: Of note patient has not taken her antihypertensives aside from the clonidine ec2 and give her prior to discharge. She is on carvedilol at night, will give her labetalol IV.. 04:05 ED course: CT scan of the head and C-spine with no traumatic pathology identified.. ec2 05:10 Data reviewed: vital signs. ED course: Pelvis x-ray, bilateral knees, bilateral ec2 tib-fib, bilateral ankle x-rays without acute traumatic pathology. Will admit due to inability to care for self. . 05:10 ED course: I discussed case with hospitalist, pending admission.. ec2 05/05 06:33 Order name: Basic Metabolic Panel EDMS 05/05 06:33 Order name: Basic Metabolic Panel EDMS 05/05 06:33 Order name: Basic Metabolic Panel EDMS 05/05 06:33 Order name: Basic Metabolic Panel EDMS 05/05 06:34 Order name: Basic Metabolic Panel EDMS 05/05 06:34 Order name: Basic Metabolic Panel EDMS 05/05 06:34 Order name: CBC with Automated Diff EDMS 05/05 06:34 Order name: CBC with Automated Diff EDMS 05/05 06:34 Order name: CBC with Automated Diff EDMS 05/05 06:34 Order name: CBC with Automated Diff EDMS 05/05 06:34 Order name: CBC with Automated Diff EDMS 05/05 06:34 Order name: CBC with Automated Diff EDMS 05/05 06:34 Order name: Magnesium EDMS 05/05 06:34 Order name: Magnesium EDMS 05/05 06:34 Order name: Magnesium EDMS 05/05 06:34 Order name: Magnesium EDMS 05/05 06:34 Order name: Magnesium EDMS 05/05 06:34 Order name: Magnesium EDMS 05/05 06:34 Order name: Phosphorus EDMS 05/05 06:34 Order name: Phosphorus EDMS 05/05 06:34 Order name: Phosphorus EDMS 05/05 06:34 Order name: Phosphorus EDMS 05/05 06:34 Order name: Phosphorus EDMS 05/05 06:34 Order name: Phosphorus EDMS 05/05 08:33 Order name: Glucose, Ancillary Testing EDMS 05/05 10:16 Order name: ABG Arterial Blood Gas EDMS 05/05 01:49 Order name: CT Head C Spine ec2 05/05 01:49 Order name: Pelvis XRAY ec2 05/05 01:49 Order name: Knee Left 3 View XRAY ec2 05/05 01:49 Order name: Knee Right 3 View XRAY ec2 05/05 01:49 Order name: Tib Fib Left XRAY ec2 05/05 01:49 Order name: Tib Fib Right XRAY ec2 05/05 01:49 Order name: Ankle Left 3 View XRAY ec2 05/05 01:49 Order name: Ankle Right 3 View XRAY ec2 05/05 08:09 Order name: CT Traumagram (Head C Spine CAP wo con) [facility] 05/05 09:03 Order name: CT EDMS 05/05 06:35 Order name: Case Management Consult EDMS 05/05 06:35 Order name: Occupational Therapy Consult EDMS 05/05 06:35 Order name: Physical Therapy Consult EDMS 05/05 01:49 Order name: IV; Complete Time: 02:43 ec2 Administered Medications: 03:09 Drug: Labetalol IV 10 mg IV at bolus once Route: IV; Rate: bolus; Site: right forearm; jb4 06:18 Drug: Labetalol IV 10 mg IV at bolus once Route: IV; Rate: bolus; Site: right forearm; jb4 08:23 Drug: cloNIDine PO 0.1 mg PO once Route: PO; tm6 10:13 Not Given (patient not able to swalloww): amiqyqrdac84.5 mg PO once; administer with tm6 food 10:13 Not Given (patient not able to swalloww): mg PO once tm6 Disposition Summary: 05/05/23 05:11 Hospitalization Ordered Notes: Hospitalization Status: Inpatient Admission ec2 Provider: Nadia Fournier ec2 Location: Telemetry/MedSurg (Inpatient) ec2 Condition: Stable ec2 Problem: an ongoing problem ec2 Symptoms: are unchanged ec2 Bed/Room Type: Standard ec2 Room Assignment: 402(05/05/23 06:51) eb Diagnosis - Repeated falls ec2 - Adult failure to thrive ec2 - Pain in ankle and joints of foot ec2 - Essential (primary) hypertension ec2 Forms: - Medication Reconciliation Form ec2 - SBAR form ec2 - Leadership Thank You Letter ec2 Signatures: Dispatcher [employer] EDJosue Acuña RN RN jb4 Noa Marquez Edwin, MD MD ec2 Florentino Francisco RN RN tm6 Corrections: (The following items were deleted from the chart) 01:52 01:49 Constitutional: GEN: No acute distress HEENT: -Head: atraumatic -Eyes: EOMI CV: ec2 regular rate LUNGS: no respiratory distress ABD: non-tender, soft, nontender, no guarding, nonrigid SKIN: Scattered ecchymosis noted throughout MSK: RUE with scattered ecchymosis, good ROM LUE with scattered ecchymosis, good ROM RLE hematoma noted to the anterior tibia, good range of motion throughout LLE hematoma and ecchymosis noted to the left ankle, TTP NEURO: moves all extremities equally, GCS 14 (E4, V4, M6) ec2 01:52 01:49 Constitutional: GEN: No acute distress HEENT: -Head: atraumatic -Eyes: EOMI CV: ec2 regular rate LUNGS: no respiratory distress ABD: non-tender, soft, nontender, no guarding, nonrigid SKIN: Scattered ecchymosis noted throughout MSK: RUE with scattered ecchymosis, good ROM LUE with scattered ecchymosis, good ROM RLE hematoma noted to the anterior tibia, good range of motion throughout LLE hematoma and ecchymosis noted to the left ankle, TTP NEURO: moves all extremities equally, GCS 14 (E4, V4, M6) ec2 01:56 01:49 Patient recently discharged by [facility], patient with multiple recurrent falls, ec2 required assist at home with EMS, and patient report that she had fallen while attempting to use a bedside commode. She is on Plavix. She is now complaining of pain in the bilateral legs.. ec2 02:00 01:49 Constitutional: GEN: No acute distress HEENT: -Head: R periorbital ecchymosis ec2 -Eyes: EOMI CV: regular rate LUNGS: no respiratory distress ABD: non-tender, soft, nontender, no guarding, nonrigid SKIN: Scattered ecchymosis noted throughout MSK: RUE with scattered ecchymosis, good ROM LUE with scattered ecchymosis, good ROM RLE hematoma noted to the anterior tibia, good range of motion throughout LLE hematoma and ecchymosis noted to the left ankle, TTP NEURO: moves all extremities equally, GCS 14 (E4, V4, M6) ec2 02:11 01:49 Patient recently discharged by [facility], patient with multiple recurrent falls, ec2 required assist at home with EMS, and patient report that she had fallen while attempting to use a bedside commode. She is on Plavix. She is complaining of pain in the bilateral legs.. ec2 06:51 05:11 ec2 eb
--- NOTE | 2023-05-05 06:38 | P.HP ---
Certification for Inpatient Patient admitted to: Observation With expected LOS: >2 Midnights Patient will require the following post-hospital care: Nursing Home Practitioner: I am a practitioner with admitting privileges, knowledge of patient current condition, hospital course, and medical plan of care. Services: Services provided to patient in accordance with Admission requirements found in Title 42 Section 412.3 of the Code of Federal Regulations Patient History Date of Service: 05/05/23 Reason for admission: trauma frequent falls History of Present Illness: Kate Love is a 28-year-old female with past medical history hypertension status post cervical fusion and lumbar laminectomies, chronic pain who presents to the ED for the second time last night with altered mental status. at bedside reports an increase in the hydrocodone dose prior to this altered mental status. Original ED visit took place on 05/04/2023 at 2104 for patient was evaluated for fall while ambulating at home, fall was witnessed by her . All ED work-up with x-rays were negative, UA negative, suspicious hyperkalemia of 5.4 likely due to hemolyzed specimen. EKG showing normal sinus rhythm with heart rate of 76, no acute ST segment elevations, no evidence of hyperkalemia. 05/04 Initial vitals BP 231/110, pulse 75, respirations 18, temperature 98.6, pulse ox 99% on room air. While in the ED she was treated with home dose clonidine for hypertension. Patient and were unsure if she took her morning dose. Kate was discharged after conversation with that she could be admitted for placement due to inability to care for herself. felt confident to discharge home. Kate returned to the ED on 05/05/2023 at 0138 due to a fall while using the bedside commode. Additional x-rays performed, all negative fractures and CT of head is negative for bleeding. Of note Kate is on Plavix. Kate will be admitted to hospitalist service for further evaluation and treatment of recent falls, acute encephalopathy, and LTAC placement. Allergies No Known Allergies Allergy (Verified 05/18/20 01:30) Home Medications: Cholecalciferol (Vitamin D3) [Vitamin D 1000 Iu Tab*] 1,000 unit PO DAILY 01/21/16 Furosemide [Lasix*] 20 mg PO DAILY tab 03/07/16 Aspirin 81 mg PO BEDTIME 05/18/20 Biotin 5,000 mcg PO DAILY 05/18/20 Cinacalcet HCl 30 mg PO BEDTIME 05/18/20 Ubidecarenone [Co Q-10] 200 mg PO NOON 05/18/20 Ezetimibe [Zetia*] 10 mg PO NOON 07/13/22 Linagliptin/Metformin HCl [Jentadueto Xr 5 mg-1,000 mg Tb] 1 each PO 1200 07/13/22 Polyethylene Glycol 3350 [Miralax] 17 gm PO DAILYPRN PRN 07/13/22 cloNIDine HCL [Clonidine HCl] 0.1 mg PO TID 07/13/22 Glucerna Shake [Glucerna*] 237 ml PO BID can 07/21/22 Hydrocodone 5/APAP 325 [[place] 5/325*] 1 tab PO Q6H PRN tab 07/21/22 carvediloL [Coreg*] 12.5 mg PO BID tab 07/21/22 Insulin -Regular Human [Novolin -R*] See Protocol SQ ACHS 01/18/23 Insulin Glargine/Lixisenatide [Soliqua 100 Unit-33 Mcg/ml Pen] 30 unit SQ DAILY 01/18/23 Valsartan 320 mg PO DAILY 01/18/23 Escitalopram Oxalate [Lexapro] 1 tab PO DAILY 03/02/23 Atorvastatin Calcium [Lipitor] 40 mg PO BEDTIME 30 Days tab 03/04/23 Clopidogrel Bisulfate [Plavix*] 75 mg PO DAILY #30 03/04/23 Fluconazole [Diflucan] 150 mg PO ONCE #1 tab 03/04/23 Folic Acid 1 mg PO ONCE #30 03/04/23 Valsartan [Diovan*] 320 mg PO DAILY tab 03/04/23 carvediloL [Coreg*] 12.5 mg PO BID 6AM 6PM tab 03/04/23 cloNIDine HCL [Catapres*] 0.1 mg PO TID tab 03/04/23 - Past Medical/Surgical History Diabetic: Yes -: hypertension, -: diabetes-NIDDM, -: CAD, carotid artery stenosis -: hyperlipidemia -: osteoarthritis -: peripheral neuropathy -: GERD -: Diverticulosis -: lumbar spondylosis/ radiculopathy -: lumbar stenosis -: Tonsillectomy -: Right knee replacement(2013) -: anterior cervical discectomy -: L2-L5 Decompressive laminectomies & bilateral foraminotomies 02/08/16 -: left knee replacement (2014) -: abd laparotomy for colon tear -: rectal abscess I&D 2009 Psychosocial/ Personal History: Patient lives at home with her - Family History Mother -: Heart disease, Hypertension Notes: already - Social History Alcohol use: No CD- Drugs: No Caffeine use: No Review of Systems General: Weakness Musculoskeletal: Other (pain to all four extremities) Physical Examination - Physical Exam General: Alert, Oriented x3 HEENT: Normocephalic, PERRLA Neck: Supple, 2+ carotid pulse no bruit, JVD not distended Respiratory: Clear to auscultation bilaterally, Normal air movement Cardiovascular: Normal pulses, Regular rate/rhythm Capillary refill: <2 Seconds Gastrointestinal: Normal bowel sounds, Soft and benign Musculoskeletal: Swelling (all four extremities), Erythema (all four extremities) Integumentary: Skin breakdown (upper extremities), Erythema (scattered to all four extremities) Neurological: Normal speech, Sensation intact Assessment and Plan - Plan Assessment and plan Trauma d/t Frequent falls Acute encephalopathy Recent increase to hydrocodone dose UA negative Fall risk multiple xrays neg for fractures Physical therapy Hyperkalemia K 5.4, likely hemolyzed specimen monitor in AM labs magnesium pending Hypertensive disorder Restart home medications S/P ACDF to C4-C6 S/P lunbar laminectomies hardware present on CT spine Laminectomies noted on pelvis xray hydrocodone at home Follow up as outpatient s/p Right Carotid stent Moderate artherosclerosis left carotid bulb Noted on CT cervical spine follow up as outpatient Transaminitis AST 56 Hypoalbuminemia Albumin 3.3 dietary consult DVT ppx: lovenox FUll code LOS 3-4 days Discharge Plan: LTAC Plan to discharge in: 72 Hours - Advance Directives Does patient have a Living Will: No Does patient have a Durable POA for Healthcare: No Time Spent Managing Pts Care (In Minutes): 55
[2023-05-05] MEDS ORDERED: cloNIDine HCL 0.1 MG TAB ONE (08:12)
[2023-05-05] MEDS ORDERED: carvediloL 6.25 MG TAB ONE (08:12)
[2023-05-05] MEDS ORDERED: METOPROLOL TARTRATE 5 MG/5 ML INJ IV PRN ×2 (08:32→17:39)
[2023-05-05] MEDS: cloNIDine HCL 0.1 MG TAB PO SCH ×3 (08:52→21:19)
[2023-05-05] MEDS: VALSARTAN 160 MG TAB PO SCH (09:00)
[2023-05-05] MEDS ORDERED: CLOPIDOGREL 75 MG TABLET PO SCH (09:00)
--- NOTE | 2023-05-05 09:02 | RAD REPORT ---
EXAM DESCRIPTION: CT - Head Brain Wo Cont - 05/05/2023 8:48 am CLINICAL HISTORY: Declining state COMPARISON: March 18, 2023 TECHNIQUE: Computed axial tomography of the head was obtained. IV contrast was not requested. All CT scans are performed using dose optimization technique as appropriate and may include automated exposure control or mA/KV adjustment according to patient size. FINDINGS: An intracranial bleed is not seen The ventricles are normal in caliber No extra-axial fluid collection is noted. Mild low-density areas within periventricular, deep and subcortical white matter likely represent isc hemic changes secondary to small vessel disease. Fluid within the sinuses/ mastoids is not seen. IMPRESSION: No acute intracranial abnormality is seen If patient's symptoms persist MRI of the brain would be recommended
[2023-05-05 10:15] LABS: Arterial Blood Carboxyhemoglob 1.3 % (0-1.5); Blood O2 Saturation 95.7 % (92-98.5)
[2023-05-05 10:40] VITALS: O2SAT 97
[2023-05-05] MEDS ORDERED: GLUCAGON 1 MG/VIAL IM PRN (17:34)
[2023-05-05] MEDS ORDERED: D50W 25 GM/50 ML SYRINGE IV PRN (17:34)
[2023-05-05] MEDS ORDERED: CLONIDINE 0.3 MG/PATCH TD SCH (17:38)
[2023-05-05] MEDS ORDERED: D10W 125 ML IV PRN (17:48)
[2023-05-05] MEDS: carvediloL 12.5 MG TAB PO SCH (18:00)
[2023-05-05] MEDS: NITROGLYCERIN 1 GM PKT TD SCH ×2 (18:00→18:36)
[2023-05-05] MEDS: D5 0.9 NS 1,000 ML IV SCH (18:36)
[2023-05-05] MEDS: INSULIN REGULAR (HUMAN) 100 UNIT/ML SQ SCH ×3 (18:38→21:19)
--- NOTE | 2023-05-05 19:47 | RAD REPORT ---
EXAM DESCRIPTION: CT - Head C Spine Mpr Wo Con - 05/05/2023 6:59 am CLINICAL HISTORY: The patient is 82 years old and is Female; TRAUMA Bed Name: 18 TECHNIQUE: Axial computed tomography images of the head/brain and cervical spine without intravenous contrast. Sagittal and coronal reformatted images were created and reviewed. This CT exam was pe rformed using one or more of the following dose reduction techniques: automated exposure control, a djustment of the mA and/or kV according to patient size, and/or use of iterative reconstruction techn ique. COMPARISON: No relevant prior studies available. FINDINGS: BRAIN: Mild bilateral white matter microangiopathy. Mild global cerebral atrophy. No extra-axial fluid collection. No intracranial hemorrhage. No focal campos-white matter differentiation abnormality. MIDLINE SHIFT: No midline shift. VENTRICLES: Unremarkable. No ventriculomegaly. SKULL: See below. SINUSES: Unremarkable as visualized. No acute sinusitis. MASTOID AIR CELLS: Unremarkable as visualized. No mastoid effusion. VERTEBRAE: Dens is intact. No acute fracture or subluxation. No dislocation. Multilevel cervical spondylosis with C4-C6 ACDF hardware demonstrated, without evidence of vargas rdware fracture, failure, or loosening. DISCS/SPINAL CANAL/NEURAL FORAMINA: No acute findings. No transtentorial herniation. No significant spinal canal stenosis. OTHER BONES/JOINTS: No fracture of the calvarium or visualized facial bones. SOFT TISSUES: Unremarkable. VASCULATURE: Dense calcification of the left carotid bifurcation. Right proximal ICA stent. OTHER FINDINGS: Craniocervical orientation is normal. IMPRESSION: No acute intracranial or cervical spine abnormality. Electronically signed by: Alcides Francois MD 05/05/2023 03:39 AM REVENUE RESEARCH ANALYST Due to temporary technical issues with the PACS/Fluency reporting system, reports are being signed by the in house radiologists without review as a courtesy to insure prompt reporting. The interpreting radiologist is fully responsible for the content of the report.
--- NOTE | 2023-05-05 19:51 | RAD REPORT ---
EXAM DESCRIPTION: RAD - Knee Right 3 View - 05/05/2023 4:02 am CLINICAL HISTORY: PAIN COMPARISON: None. TECHNIQUE: XR KNEE 3 VIEWS RIGHT 05/05/2023 1:49 AM PROP WORKER FINDINGS: There is no fracture. Total right knee arthroplasty is present. Soft tissues are unremarka ble. IMPRESSION: No acute osseous findings. Electronically signed by: Michael Lyon MD 05/05/2023 04:49 AM PROP WORKER Due to temporary technical issues with the PACS/Fluency reporting system, reports are being signed by the in house radiologists without review as a courtesy to insure prompt reporting. The interpreting radiologist is fully responsible for the content of the report.
--- NOTE | 2023-05-05 19:53 | RAD REPORT ---
EXAM DESCRIPTION: RAD - Knee Left 3 View - 05/05/2023 4:02 am CLINICAL HISTORY: PAIN COMPARISON: None. TECHNIQUE: XR KNEE 3 VIEWS LEFT 05/05/2023 1:49 AM SEWER PIPE PRESS OPERATOR FINDINGS: There is no fracture. Total left knee arthroplasty was performed. Soft tissues are unremar kable. IMPRESSION: No acute osseous findings. Electronically signed by: Michael Lyon MD 05/05/2023 04:51 AM SEWER PIPE PRESS OPERATOR Due to temporary technical issues with the PACS/Fluency reporting system, reports are being signed by the in house radiologists without review as a courtesy to insure prompt reporting. The interpreting radiologist is fully responsible for the content of the report.
--- NOTE | 2023-05-05 19:55 | RAD REPORT ---
EXAM DESCRIPTION: RAD - Ankle Right 3 View - 05/05/2023 4:03 am CLINICAL HISTORY: Right ankle PAIN COMPARISON: None. TECHNIQUE: XR ANKLE 3 OR MORE VIEWS RIGHT 05/05/2023 1:49 AM FOOD SAFETY COORDINATOR FINDINGS: There is an old fracture of the distal right fibular tip. Joint spaces are preserved. Th ere is mild lateral soft tissue swelling. There is a moderate calcaneal spur. IMPRESSION: No acute osseous findings. Electronically signed by: Michael Lyon MD 05/05/2023 04:33 AM FOOD SAFETY COORDINATOR Due to temporary technical issues with the PACS/Fluency reporting system, reports are being signed by the in house radiologists without review as a courtesy to insure prompt reporting. The interpreting radiologist is fully responsible for the content of the report.
--- NOTE | 2023-05-05 19:57 | RAD REPORT ---
EXAM DESCRIPTION: RAD - Pelvis - 05/05/2023 4:02 am CLINICAL HISTORY: TRAUMA COMPARISON: None. TECHNIQUE: XR PELVIS 1-2 VIEWS 05/05/2023 1:49 AM WEB CONTENT EXECUTIVE FINDINGS: There is no fracture. There is mild narrowing of both hip joints. Soft tissues are unremar kable. IMPRESSION: No acute osseous findings. Electronically signed by: Michael Lyon MD 05/05/2023 04:33 AM WEB CONTENT EXECUTIVE Due to temporary technical issues with the PACS/Fluency reporting system, reports are being signed by the in house radiologists without review as a courtesy to insure prompt reporting. The interpreting radiologist is fully responsible for the content of the report.
--- NOTE | 2023-05-05 19:59 | RAD REPORT ---
EXAM DESCRIPTION: RAD - Tib Fib Left - 05/05/2023 4:02 am CLINICAL HISTORY: PAIN COMPARISON: None. TECHNIQUE: XR TIBIA FIBULA LEFT 05/05/2023 1:49 AM SLEEVE SEWER FINDINGS: There is no fracture. Joint spaces are preserved. There is moderate lateral soft tissue swelling. There is a large calcaneal spur. IMPRESSION: No acute osseous findings. Electronically signed by: Michael Lyon MD 05/05/2023 04:51 AM SLEEVE SEWER Due to temporary technical issues with the PACS/Fluency reporting system, reports are being signed by the in house radiologists without review as a courtesy to insure prompt reporting. The interpreting radiologist is fully responsible for the content of the report.
--- NOTE | 2023-05-05 20:01 | RAD REPORT ---
EXAM DESCRIPTION: RAD - Ankle Left 3 View - 05/05/2023 4:03 am CLINICAL HISTORY: PAIN COMPARISON: None. TECHNIQUE: XR ANKLE 3 OR MORE VIEWS LEFT 05/05/2023 1:49 AM HEALTH/SAFETY JOB TITLES FINDINGS: There is no fracture. Joint spaces are preserved. There is extensive lateral soft tissue swelling. There is a large calcaneal spur. IMPRESSION: Extensive lateral soft tissue swelling. No convincing fracture. Electronically signed by: Michael Lyon MD 05/05/2023 04:50 AM HEALTH/SAFETY JOB TITLES Due to temporary technical issues with the PACS/Fluency reporting system, reports are being signed by the in house radiologists without review as a courtesy to insure prompt reporting. The interpreting radiologist is fully responsible for the content of the report.
--- NOTE | 2023-05-05 20:02 | RAD REPORT ---
EXAM DESCRIPTION: RAD - Tib Fib Right - 05/05/2023 4:02 am CLINICAL HISTORY: PAIN COMPARISON: None. TECHNIQUE: XR TIBIA FIBULA RIGHT 05/05/2023 1:49 AM PEDIATRIC HOSPITALIST FINDINGS: There is an old fracture of the distal fibular tip. Total right knee arthroplasty was perf ormed. There is mild soft tissue swelling overlying the distal fibula. IMPRESSION: No acute osseous findings. Electronically signed by: Michael Lyon MD 05/05/2023 04:35 AM PEDIATRIC HOSPITALIST Due to temporary technical issues with the PACS/Fluency reporting system, reports are being signed by the in house radiologists without review as a courtesy to insure prompt reporting. The interpreting radiologist is fully responsible for the content of the report.
--- NOTE | 2023-05-05 20:17 | HP ---
Date of Admission: 05/05/2023 Chief Complaint: Fall, altered mental status. History Of Present Illness: This is an 82-year-old very pleasant female patient who has chronic back pain, takes multiple medications for multiple chronic medical conditions, had some confusion few days ago. She came into office. Her urinalysis had shown slight abnormality and we started her on oral antibiotic, Cipro, suspecting urinary tract infection and urine culture was ordered through office, which did not grow any bacteria. Patient was doing fine after that office visit and reported that she had a CAT scan done on her back as per her specialist from [place]. This was done on Sunday of this week and yesterday she actually had a telephone visit with this specialist to discuss the results as well as further treatment option. Patient took her hydrocodone. She normally takes about 3 pills on a daily basis for her chronic back pain problem and yesterday she took 2 doses of hydrocodone 2 hours apart. Yesterday evening time when she was sitting as she was trying to get up from the chair, she lost her balance and fell down and was not able to get her and he called ambulance and she was brought into the ER and had routine labs done. CAT scan of the head, chest x-ray, and there was no acute injury and she was released from emergency room around 11:30 p.m. last night. drove her back home after leaving emergency room and he could not get her out of the car to go inside the house, so he actually ended up calling ambulance while he had parked his car in his driveway and EMS arrived, evaluated her and after they evaluated her, they decided to bring her back to the emergency room. At this time, she was admitted to the hospital. I saw her in the emergency room. She was sleeping with her eyes closed, not in any respiratory distress. She did wake up to verbal and tactile stimuli, but did not answer any questions and went back to sleep after that. As per my discussion with the patient's , who provided all the details, patient has not had any fever, chills, nausea, vomiting, or any other acute illness in last few days. Allergies: NO KNOWN ALLERGIES. Medications: List reviewed. 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 Constitutional: As mentioned above. All other systems reviewed and negative. Past Medical History: Significant for type 2 diabetes mellitus; hyperparathyroidism; COVID-19 infection in 2019; hypertension; hyperlipidemia; coronary artery disease; STEMI on December 12, 2019; carotid artery stenosis; osteoarthritis at multiple sites; gastroesophageal reflux disease; diverticulosis; and vitamin D deficiency. Past Surgical History: Tonsillectomy; coronary artery stent placement for STEMI on December 14, 2019; bilateral knee surgery; knee replacement surgery; back surgery; cervical spine surgery; shoulder surgery, carotid artery stent placement in March 2023. Family History: Father , had COPD. Mother , had diabetes and heart disease. Social History: Negative for smoking or alcohol use. Physical Examination: Vital Signs: Temperature 97.2, pulse 88, respiratory rate 14, blood pressure 174/67, oxygen saturation 97% on room air. Height 5 feet 3 inches, weight 160 pounds. General: Patient is not oriented. She is sleepy, arousable, not in distress. Does not answer any questions. HEENT: Head atraumatic, normocephalic. Conjunctivae nonerythematous. Sclerae white. Mouth, no thrush or edema noted. Ears/Nose, no mass, lesion, discharge noted. Neck: Supple. No JVD, lymph nodes, bruit, thyromegaly noted. Lungs: Bilateral good equal air entry. Clear to auscultation. No rhonchi. No rales. Heart: Normal heart sounds, no murmur or gallop. Abdomen: Soft, bowel sounds normal. No guarding, rigidity, tenderness, mass, hepatosplenomegaly, distention, or bruit noted. Extremities: Patient has multiple bruising and hematomas involving upper and lower extremities and skin tear over left elbow region. Skin: No rash, ulcer, cellulitis. Lymphatics: No lymph node enlargement in neck, supraclavicular, infraclavicular region. Neuro: Patient is not able to answer any questions and has altered mental status. Chest: Unremarkable. External Genitalia: Deferred. Rectal: Deferred. Laboratory Data: Arterial blood gas in this morning shows pH 7.43, pCO2 of 22.3, pO2 of 78.7, saturation 95% on room air. Last night, her CBC showed white count 11.1, hemoglobin 14.5, platelets 278. Sodium 135, potassium 5.4, chloride 102, bicarb 28, BUN 15, creatinine 0.98, glucose 107, calcium 10.5. AST 56, ALT 31, alkaline phosphatase 116. Total bilirubin 0.7. Urinalysis unremarkable except 1+ ketones. Her pelvis x-ray, no acute traumatic finding. Chest x-ray, no acute intrathoracic changes. CAT scan of the head and cervical spine, no acute intracranial or cervical spine findings. No acute abnormality or fracture noted on x-rays of bilateral ankle, bilateral knee, bilateral tibia and fibula and pelvis. Impression: 1. Encephalopathy, unspecified. 2. Osteoarthritis, multiple sites. 3. Hyperkalemia. 4. Coronary artery disease. 5. Hypertension. 6. Hyperlipidemia. 7. Type 2 diabetes mellitus. 8. Carotid artery stenosis, bilateral. 9. Diverticulosis. 10. Gastroesophageal reflux disease. 11. Debility. Plan: We will go ahead and admit the patient to hospital for further evaluation and management of this problem. Patient is appropriate for inpatient and is expected to spend 2 midnights in hospital. At this point, as far as her altered mental status is concerned, we do not have any definite etiology, but I strongly suspect narcotic medication as underlying likely cause for this altered mental status and encephalopathy problem. I do not see any infectious etiology or any obvious signs of infection anywhere at this time. We sure would like to avoid use of any narcotic medication at this point and at some point, we will have to make certain decisions regarding her pain control, but at least to start with to not use any narcotic medication. Few months ago when she was in our hospital, I believe we had similar problems. I will review the hospital record as well. She takes aspirin and Plavix on a daily basis at home and we will need to restart these medications if possible tomorrow. Today, she is not able to swallow anything because of her altered mental status. We will see how she is by tomorrow. If she continues to be altered, the we will have to consider Dobbhoff tube placement. Today, we will give her maintenance IV fluids and diabetes will be managed with sliding scale insulin. For blood pressure control. I have ordered nitroglycerin ointment and clonidine patch and we will also use metoprolol on a p.r.n. basis. For gastroesophageal reflux disease, we will use IV Protonix per order. She takes omeprazole at home. For hyperlipidemia, statin therapy will be initiated when she is able to swallow or once we have Dobbhoff tube in place. Fall precaution was ordered and I did communicate with the patient's regarding all these details today and also recommended that the patient should go to assisted facility and he understands and agrees with that and informed me that in the past she was at [facility] in [place] and that is where he would like for her to go, so we will consult Social Service to assist with that. I will see her tomorrow for followup. MORIAH/BRIAN Voice ID: [id number] MTDD
[2023-05-05] MEDS ORDERED: ATORVASTATIN 40 MG TAB PO SCH (21:00)
[2023-05-05] MEDS ORDERED: INSULIN GLARGINE 100 UNIT/ML SQ ONE (21:00)
[2023-05-06] MEDS: NITROGLYCERIN 1 GM PKT TD SCH ×4 (00:33→17:01)
[2023-05-06] MEDS: carvediloL 12.5 MG TAB PO SCH (06:00)
[2023-05-06 06:37] LABS: Hematocrit 39.5 % (36.0-45.0); MCV 91.7 fL (80-100); Platelets 304 thou/uL (152-406); RBC Red Blood Cell Count 4.31 M/uL (3.86-4.86)
[2023-05-06 06:38] LABS: Absolute Lymphocytes (CBC) 1.3 K/uL (0.7-4.9); MPV 9.8 fL (7.6-11.3)
[2023-05-06 06:52] LABS: Magnesium 1.9 mg/dL (1.6-2.4); Phosphorus 3.3 mg/dL (2.5-4.9); Potassium 3.7 mEq/L (3.5-5.1)
[2023-05-06] MEDS: VALSARTAN 160 MG TAB PO SCH (07:19)
[2023-05-06] MEDS: cloNIDine HCL 0.1 MG TAB PO SCH (07:19)
[2023-05-06] MEDS ORDERED: KCL 20 MEQ/100 mL IVPB 20 MEQ/100 ML BAG IV ONE (08:00)
[2023-05-06] MEDS: INSULIN REGULAR (HUMAN) 100 UNIT/ML SQ SCH ×3 (08:48→16:58)
[2023-05-06] MEDS: D5 0.9 NS 1,000 ML IV SCH (08:49)
[2023-05-06] MEDS: BACI/NEOMYCIN/POLY OINT 15GM TOP SCH (10:42)
[2023-05-06] MEDS: INSULIN GLARGINE 100 UNIT/ML SQ SCH (11:36)
[2023-05-06] MEDS: CEFTRIAXONE 1,000 MG in NA CHLORIDE 0.9% 50 ML IVPB SCH (12:47)
--- NOTE | 2023-05-06 15:24 | RAD REPORT ---
EXAM DESCRIPTION: RAD - Abdomen 1 View (KUB) - 05/06/2023 3:14 pm CLINICAL HISTORY: placement of dobbhoff Pain COMPARISON: <Comparisons> FINDINGS: The enteric tube tip is in the stomach superiorly.
--- NOTE | 2023-05-06 16:25 | PN ---
Date of Progress Note: 05/06/2023 Subjective: Patient was seen this morning for followup. She was lying in bed, , priscilla cohen moves her fingers and upon sternal rub, she was moving some facial muscles but did not wake up to any verbal or tactile or sternal rub stimulation. Not using any accessory muscles of respiration. Maintaining adequate oxygenation without using any oxygen supplementation. was with her at [facility]. Objective: Vital Signs: Reviewed. HEENT: Unremarkable. Lungs: Clear to auscultation. No rhonchi or rales. Heart: Sounds normal. Abdomen: Soft. Bowel sounds normal. No guarding, rigidity, tenderness, distention. Extremities: No leg edema. Skin: Multiple contusion and hematoma from lower extremity remains unchanged. Contusions from upper extremity remains unchanged. Left lower extremity in the lower half of the left leg has slightly wa rmness to the skin along with pink discoloration. Laboratory Data: White count 16.6, hemoglobin 13.2, platelets 30, sodium 139, potassium 3.7, chlorid e 105, bicarb 24, BUN 64, creatinine 2.36. Glucose 399. Impression: 1.Acute kidney injury. 2.Volume depletion. 3.Cellulitis, left leg. 4.Encephalopathy, toxic and metabolic. 5.Coronary artery disease. 6.Hypertension. 7.Type 2 diabetes mellitus. Plan: We will go ahead and continue current antihypertensive medications for blood pressure control. Fingerstick blood sugar readings reviewed. Patient received 15 units of Lantus insulin last night and this morning also it was ordered along with sliding scale insulin for diabetes control. For her leukocytosis, likely reason for that is cellulitis and we will start her on ceftriaxone per order. W e will repeat blood work tomorrow. For her acute kidney injury, we will go ahead and give her IV flu id normal saline at 125 cc/hour x1 L 100 cc/hour and patient is still having significant a ltered mental status, not able to swallow or eat or drink, so I have recommended Dobhoff tube placeme nt and get an x-ray to verify position and once we get okay from Radiology then to start Glucerna 1.5 and started at 10 cc/hour and as she tolerates this feeding every 4 hours, increase rate by 10 cc ti ll we reach 60 cc/hour rate. We will also give water 100 cc/hour every 4 hours through Dobhoff tube. We should put the patient on air mattress, change position every 2 hours and offload her heels. He r right heel already has stage II decubitus area. No open wound noted. Patient had altered mental s tatus to a lesser extent few months ago when she was at our hospital under my care and back [place], which is about a month ago when she was in [place], she also had altered mental status [place] and tells me that neurological workup was negative at that time in [place] including normal EEG. This is probably the worst time that she is having with altered mental status out of multiple prior episodes and we may not be able to find definite answer on it, but toxic and metabolic etiology is probably likely source and we will request a Neurology consultation. We will request Social Serv ice consultation to help plan for discharge as she will not be able to go home and has expres sed desire to take her to [facility] in [place]. We also discussed advanced directives an d patient's tells me that while she was in hospital in [place], patient had signed paper for do not resuscitate. Obviously, we do not have those documentation and currently patient is not able to make decision for herself, so advanced directive was discussed with the patient's and he h as informed me that patient would not have wanted any heroic measures done like CPR, defibrillation o r ventilator support and has requested do not resuscitate order to be in place while at our hospital. I will also have Social Service assist family to complete out of hospital DNR paperwork. I will se e her tomorrow for followup. MORIAH/MODL Voice ID: [id number] Report ID: [id number]
--- NOTE | 2023-05-06 17:47 | RAD REPORT ---
EXAM DESCRIPTION: RAD - Abdomen 1 View (KUB) - 05/06/2023 5:37 pm CLINICAL HISTORY: placement of dobbhoff Pain COMPARISON: <Comparisons> FINDINGS: Tip of the enteric tube is in the distal stomach or proximal duodenum.
[2023-05-06] MEDS: NA CHLORIDE 0.9% 1,000 ML IV SCH (20:21)
[2023-05-07] MEDS: NITROGLYCERIN 1 GM PKT TD SCH ×4 (00:34→16:17)
[2023-05-07] MEDS: INSULIN REGULAR (HUMAN) 100 UNIT/ML SQ SCH ×4 (00:35→17:20)
[2023-05-07 04:11] LABS: Hematocrit 34.2 % (36.0-45.0); Lymphocytes % 14.8 % (15.3-44.8); MCV 92.5 fL (80-100); MPV 9.4 fL (7.6-11.3); Platelets 232 thou/uL (152-406)
[2023-05-07 04:38] LABS: Phosphorus 3.2 mg/dL (2.5-4.9); Potassium 3.9 mEq/L (3.5-5.1)
[2023-05-07] MEDS: NA CHLORIDE 0.9% 1,000 ML IV SCH (06:15)
[2023-05-07] MEDS ORDERED: NA CHLORIDE 0.9% 1,000 ML IV SCH (08:00)
[2023-05-07] MEDS ORDERED: INSULIN GLARGINE 100 UNIT/ML SQ SCH (09:00)
[2023-05-07] MEDS: NACHLORIDE 0.45% 1,000 ML IV SCH ×3 (09:11→18:49)
[2023-05-07] MEDS: CEFTRIAXONE 1,000 MG in NA CHLORIDE 0.9% 50 ML IVPB SCH (09:12)
[2023-05-07] MEDS: INSULIN GLARGINE 100 UNIT/ML SQ SCH (09:12)
[2023-05-07] MEDS: BACI/NEOMYCIN/POLY OINT 15GM TOP SCH (09:12)
[2023-05-07] MEDS: MORPHINE 2 MG/ML SYR IV PRN (22:02)
[2023-05-08] MEDS: NITROGLYCERIN 1 GM PKT TD SCH ×4 (00:48→17:48)
[2023-05-08] MEDS: INSULIN REGULAR (HUMAN) 100 UNIT/ML SQ SCH ×4 (00:52→17:48)
[2023-05-08] MEDS ORDERED: GLUCERNA 1.5 CAL 1,000 ML BOT FT SCH (01:00)
[2023-05-08 03:42] LABS: Absolute Lymphocytes (CBC) 1.6 K/uL (0.7-4.9); Hematocrit 32.9 % (36.0-45.0); Lymphocytes % 14.8 % (15.3-44.8); MCV 92.4 fL (80-100); MPV 9.4 fL (7.6-11.3); Platelets 209 thou/uL (152-406); RBC Red Blood Cell Count 3.56 M/uL (3.86-4.86)
[2023-05-08 03:57] LABS: Magnesium 2.1 mg/dL (1.6-2.4); Phosphorus 2.4 mg/dL (2.5-4.9); Potassium 3.8 mEq/L (3.5-5.1)
[2023-05-08] MEDS: NACHLORIDE 0.45% 1,000 ML IV SCH ×3 (05:38→22:01)
--- NOTE | 2023-05-08 06:28 | PN ---
Date of Progress Note: 05/07/2023 Subjective: Patient was seen this morning for followup. She was sleeping, but easily arousable this morning. After I called her name once, she opened her eyes and looked at me and when I asked her wh at my name was, she was able to recognize me and told my name. This is significantly better than las t couple of days. Objective: Vital Signs: Reviewed. HEENT: Unremarkable. Lungs: Clear to auscultation. Cardiac: Heart sounds normal. Abdomen: Soft. Bowel sounds normal. No guarding, rigidity, tenderness, distention. Extremities: No leg edema. Skin: Multiple bruising from upper and lower extremity remains unchanged. Area of cellulitis from l eft lower extremity is better today than yesterday. Laboratory Data: White count 13.8, hemoglobin 11.4, platelets 230. Sodium 145, potassium 3.9, chlor diane 115, bicarb 25, BUN 80, creatinine 2.37, glucose 272, magnesium 2, phosphorus 3.2, calcium 9.1. Impression: 1.Encephalopathy, toxic and metabolic. 2.Acute kidney injury. 3.Type 2 diabetes mellitus. 4.Hypertension. 5.Coronary artery disease. 6.Hyperlipidemia. Plan: We will go ahead and continue current antibiotics. Change IV fluid from normal saline to half -normal saline. Continue Dobhoff tube feedings. Consult speech therapist for swallowing evaluation. We will also consult neurologist, Dr. Newton. I did call patient's and provided details this morning. We will repeat blood work tomorrow and I will see her jovan orrow for followup. MORIAH/MODL Voice ID: [id number] Report ID: [id number]
[2023-05-08] MEDS ORDERED: POTASSIUM PHOS IN 0.9 % NACL 15 MMOL/250 ML BAG IV ONE (08:00)
[2023-05-08] MEDS ORDERED: Escitalopram Oxalate [Lexapro] 5 MG Tablet PO SCH (09:00)
[2023-05-08] MEDS: BACI/NEOMYCIN/POLY OINT 15GM TOP SCH (09:00)
[2023-05-08] MEDS: CEFTRIAXONE 1,000 MG in NA CHLORIDE 0.9% 50 ML IVPB SCH (09:56)
[2023-05-08] MEDS: CLOPIDOGREL 75 MG TABLET PO SCH (09:57)
[2023-05-08] MEDS: INSULIN GLARGINE 100 UNIT/ML SQ SCH (09:58)
[2023-05-08 10:50] VITALS: BMI 26.5
[2023-05-08] MEDS: EZETIMIBE 10 MG TAB PO SCH (12:33)
[2023-05-08] MEDS: ENOXAPARIN 40 MG/0.4 ML SQ SCH (12:33)
[2023-05-08] MEDS: ESCITALOPRAM 20 MG TAB PO SCH (12:54)
[2023-05-08] MEDS: MORPHINE 2 MG/ML SYR IV PRN (17:47)
[2023-05-08] MEDS ORDERED: ASPIRIN 81 MG CHEWABLE TABLET PO SCH (21:00)
--- NOTE | 2023-05-08 21:57 | PN ---
Date of Progress Note: 05/08/2023 Subjective: Patient was seen this morning for followup. Her daughter was with her at bedside. She was lying in bed, awake, alert, answering questions appropriately. Denies any new complaints. Objective: Vital Signs: Reviewed. HEENT: Unremarkable. Lungs: Clear to auscultation. Heart: Sounds normal. Abdomen: Soft. Bowel sounds normal. No guarding, rigidity, tenderness, distention. Extremities: No leg edema. Skin: Multiple bruising from both lower extremity and hematoma present over both lower extremity. A dio of cellulitis from left lower extremity is much better today than last couple of days. The patie nt has significant tenderness over the left lower lateral leg around hematoma site. Impression: 1.Encephalopathy, metabolic and toxic. 2.Cellulitis, left leg. 3.Coronary artery disease. 4.Hypertension. 5.Diabetes mellitus. 6.Acute kidney injury. 7.Volume depletion. Laboratory Data: Today white count 10.6, hemoglobin 11.2, and platelets 209. 145, potass ium 3.8, chloride 116, bicarb 26, BUN 73, creatinine 1.33, glucose 233, magnesium 2.1. Plan: We will go ahead and continue IV fluid, but reduce rate. The patient was getting Dobhoff tube feeding. We will continue that. Physical therapy to work with the patient and consultation was req uested. We will get a venous Doppler of lower extremity to rule out DVT and start patient on Lovenox as now it is safe to start her on Lovenox considering significant hematoma on both lower extremity. So far, we wanted to wait on any anti-platelet and anticoagulant medication, but starting today we w ill initiate dose. Details and plan of treatment discussed with the patient and her daughter. We wi ll consult Social Service to help assist the patient with discharge planning. MORIAH/MODL Voice ID: [id number] Report ID: [id number]
[2023-05-08] MEDS ORDERED: QUETIAPINE 25 MG TAB FT ONE (22:00)
[2023-05-09] MEDS: NITROGLYCERIN 1 GM PKT TD SCH ×2 (01:19→05:59)
[2023-05-09] MEDS: INSULIN REGULAR (HUMAN) 100 UNIT/ML SQ SCH ×3 (01:20→11:42)
[2023-05-09] MEDS: MORPHINE 2 MG/ML SYR IV PRN (04:14)
[2023-05-09 06:59] LABS: Absolute Lymphocytes (CBC) 1.1 K/uL (0.7-4.9); Hematocrit 40.2 % (36.0-45.0); Lymphocytes % 12.8 % (15.3-44.8); MCV 92.2 fL (80-100); Platelets 235 thou/uL (152-406); RBC Red Blood Cell Count 4.36 M/uL (3.86-4.86)
[2023-05-09 07:12] LABS: Magnesium 2.2 mg/dL (1.6-2.4); Phosphorus 2.8 mg/dL (2.5-4.9); Potassium 3.9 mEq/L (3.5-5.1)
[2023-05-09] MEDS ORDERED: KCL 20 MEQ/100 mL IVPB 20 MEQ/100 ML BAG IV SCH (09:00)
[2023-05-09] MEDS ORDERED: NACHLORIDE 0.45% 1,000 ML IV SCH (09:24)
[2023-05-09] MEDS: ESCITALOPRAM 20 MG TAB PO SCH (09:30)
[2023-05-09] MEDS: CEFTRIAXONE 1,000 MG in NA CHLORIDE 0.9% 50 ML IVPB SCH (09:30)
[2023-05-09] MEDS: CLOPIDOGREL 75 MG TABLET PO SCH (09:30)
[2023-05-09] MEDS: ENOXAPARIN 40 MG/0.4 ML SQ SCH (09:31)
[2023-05-09] MEDS ORDERED: carvediloL 12.5 MG TAB PO ONE (11:37)
[2023-05-09] MEDS ORDERED: VALSARTAN 160 MG TAB PO ONE (11:38)
[2023-05-09] MEDS: INSULIN GLARGINE 100 UNIT/ML SQ SCH (11:42)
[2023-05-09] MEDS: EZETIMIBE 10 MG TAB PO SCH (11:43)
[2023-05-09 12:22] VITALS: BP 162/85
--- NOTE | 2023-05-09 12:42 | RAD REPORT ---
EXAM DESCRIPTION: US - Extrem Venous W Compress Guilherme - 05/09/2023 11:54 am CLINICAL HISTORY: Or/no DVT COMPARISON: None. TECHNIQUE: Real-time sonographic evaluation of the bilateral lower extremity deep venous systems was performed. FINDINGS: Normal compressibility, flow augmentation, phasic flow and spontaneous flow is identified in both the left and right lower extremity deep venous systems. No intraluminal filling defects seen. IMPRESSION: No DVT in either lower extremity.
[2023-05-09] MEDS ORDERED: cloNIDine HCL 0.1 MG TAB PO SCH (14:00)
[2023-05-09 15:36] VITALS: TEMP 96.7
[2023-05-09] MEDS ORDERED: QUETIAPINE 25 MG TAB PO SCH (21:00)
[2023-05-09] MEDS ORDERED: carvediloL 12.5 MG TAB PO SCH (21:00)
== END 2023-05-09 18:42 | DRG 92 ==
LOC: ER 01:38 → ERHOLD 06:58 → 4TH 09:34 → OBSVTOIN 05-06 16:35
PROVIDERS: ADMIT Internal Medicine; ATTEND Internal Medicine
DX: G92.8 Other toxic encephalopathy (principal); L03.116 Cellulitis of left lower limb; N17.9 Acute kidney failure, unspecified; T40.605A Adverse effect of unspecified narcotics, initial encounter; I10 Essential (primary) hypertension; E11.9 Type 2 diabetes mellitus without complications; E78.5 Hyperlipidemia, unspecified; J45.909 Unspecified asthma, uncomplicated; G89.29 Other chronic pain; K21.9 Gastro-esophageal reflux disease without esophagitis; M54.9 Dorsalgia, unspecified; E87.5 Hyperkalemia; E86.9 Volume depletion, unspecified; M19.09 Primary osteoarthritis, other specified site; I65.23 Occlusion and stenosis of bilateral carotid arteries; L89.612 Pressure ulcer of right heel, stage 2; K57.90 Diverticulosis of intestine, part unspecified, without perforation or abscess without bleeding; I25.10 Atherosclerotic heart disease of native coronary artery without angina pectoris; I25.2 Old myocardial infarction; R62.7 Adult failure to thrive; R29.6 Repeated falls; Z66 Do not resuscitate; Z95.5 Presence of coronary angioplasty implant and graft; Z68.26 Body mass index [BMI] 26.0-26.9, adult; Z91.81 History of falling; Z79.01 Long term (current) use of anticoagulants; Z86.16 Personal history of COVID-19; Z96.653 Presence of artificial knee joint, bilateral; W18.39XA Other fall on same level, initial encounter; Y99.9 Unspecified external cause status; Y93.89 Activity, other specified; Y92.019 Unspecified place in single-family (private) house as the place of occurrence of the external cause
CPT/HCPCS: 36415; 36600; 70450; 71045; 72125; 72170; 74018; 80048; 80053; 81001; 82550; 82805; 82947; 83735; 84100; 85025; 92526; 92610; 93005; 93970; 96374; 97112; 97116; 97163; 97530; 99284; 99285; J0696; J1650; J1815; J2270; J3480; J7030; J7042

== ENCOUNTER → 2023-06-14 | Emergency (ER) | payer OTHER ==
[~2023-06-14] MED LIST: CEFTRIAXONE 1000 MG/VIAL ONE; NA CHLORIDE 0.9% 1,000 ML ONE
[2023-06-14 19:29] LABS: Absolute Lymphocytes (CBC) 1.2 K/uL (0.7-4.9); Hematocrit 33.2 % (36.0-45.0); Lymphocytes % 15.4 % (15.3-44.8); MCV 91.5 fL (80-100); MPV 7.9 fL (7.6-11.3); Platelets 375 thou/uL (152-406); RBC Red Blood Cell Count 3.63 M/uL (3.86-4.86)
[2023-06-14 19:54] LABS: Bilirubin Total 0.3 mg/dL (0.2-1.0); Potassium 3.4 mEq/L (3.5-5.1); Protein, Total 5.9 g/dL (6.4-8.2)
--- NOTE | 2023-06-14 20:57 | RAD REPORT ---
EXAM DESCRIPTION: CTAbdomen Pelvis W Contrast - 06/14/2023 8:36 pm CLINICAL HISTORY: ABD PAIN COMPARISON: Abdomen Pelvis W Contrast dated 02/09/2023; Abdomen Pelvis W Contrast dated 01/15/2023 TECHNIQUE: CT of the abdomen and pelvis was performed. All CT scans are performed using dose optimization technique as appropriate and may include automated exposure control or mA/KV adjustment according to patient size. FINDINGS: Lower chest: There valve calcifications. Coronary artery calcifications. Liver: Mild intrahepatic biliary duct dilatation. Subcentimeter low-density liver lesions are noted w hich are too small to characterize but statistically benign. Biliary: Cholecystectomy. Extrahepatic biliary duct dilatation is likely related to the postcholecyst ectomy state and patient age. The common bile duct measures 11 millimeters Stomach: No significant focal abnormality. Duodenum: No significant focal abnormality. Pancreas: No significant abnormality. Atrophy. Spleen: No significant abnormality. Adrenal: No suspicious lesions. Kidney/ureter: Unchanged mild right-sided hydronephrosis with transition to nondilated ureter just P on the right UPJ. No renal calculi. Too small to characterize and/or benign appearing renal lesions a re noted. Retroperitoneum: No retroperitoneal adenopathy. Vascular: No aneurysm. Bowel: No significant focal abnormality. Peritoneum: No ascites or free air. Bladder: Grossly unremarkable. Reproductive: 2.4 cm simple appearing right adnexal cyst. This is unchanged since 02/09/2023. This is almost certainly benign. No follow-up is necessary. Bones: No acute fracture. Inferior endplate deformity at L2 is unchanged. Other: n/a IMPRESSION: No acute intra-abdominal or pelvic finding. Unchanged incidental findings as noted above .
[2023-06-14 21:49] LABS: Specific Gravity 1.018 (1.005-1.030); Urine Bacteria <20 /HPF (<20); Urine Bilirubin NEGATIVE (Negative); Urine Blood 1+ (Negative); Urine Clarity Extremely Turbid (Clear); Urine Color Light-Yellow (Yellow); Urine Glucose NEGATIVE (Negative); Urine Mucus Slight /HPF (None Seen); Urine Protein 1+ (Negative); Urine RBC <5 /HPF (None Seen); Urine Urobilinogen Normal (Normal); Urine pH 5.5 (5.0-7.0)
[2023-06-14 22:27] LABS: SARS-CoV-2 Antigen Rapid Res Negative (Negative)
--- NOTE | 2023-06-14 22:30 | EDPHYS ---
Physician Documentation [facility] Name: Kate Love Age: 82 yrs Sex: Female : 1940 Arrival Date: 06/14/2023 Time: 18:40 Bed 4 Private MD: ED Physician Shorty Small HPI: 06/15 00:33 This 82 yrs old Female presents to ER via EMS with complaints of Abdominal Pain. sb4 00:33 The patient presents with abdominal pain in the lower abdomen. Onset: The sb4 symptoms/episode began/occurred today. The symptoms do not radiate. Patient is recently come home from half-way facility after recovering from a carotid stent. She has home health. states that she has been weaker than usual and this evening started complaining of lower abdominal pain. She has struggled with constipation intermittently and he thought it might be that but was not sure wanted to have her evaluated. Patient does not have many complaints at this time, feels that she is just weak and in the process of recovering from everything that she has been through. Historical: - Allergies: 06/14 18:50 No Known Allergies; kc6 - PMHx: 18:50 Asthma; cardiac stent x2; Diabetes - IDDM; Hyperlipidemia; Hypertension; Myocardial kc6 infarction; Transient cerebral ischemia; perforated rectum; - PSHx: 18:50 Cholecystectomy; right \T\ left knee; right and left shoulder; laminectomy; kc6 - Immunization history:: Adult Immunizations unknown. - Social history:: Smoking status: unknown. ROS: 06/15 00:33 Constitutional: Negative for fever, chills, and weight loss, sb4 Abdomen/GI: Positive for abdominal pain, All other systems are negative, Exam: 00:33 Constitutional: This is a well developed, well nourished patient who is awake, alert, sb4 and in no acute distress. Head/Face: Normocephalic, atraumatic. Eyes: Extra-ocular motions intact. Periorbital areas with no swelling, redness, or edema. ENT: Mucous membranes moist. Cardiovascular: Regular rate and rhythm with a normal S1 and S2. Respiratory: Lungs have equal breath sounds bilaterally, clear to auscultation and percussion. No rales, rhonchi or wheezes noted. No increased work of breathing, no retractions or nasal flaring. Abdomen/GI: Soft, non-tender, no distension. Skin: Warm, dry with normal turgor. Normal color with no rashes, no lesions, and no evidence of cellulitis. MS/ Extremity: Pulses equal, no cyanosis. Neurovascular intact. Full, normal range of motion. Neuro: Awake and alert, GCS 15, oriented to person, place, time, and situation. Motor strength 5/5 in all extremities. Sensory grossly intact. Vital Signs: 06/14 18:47 BP 212 / 76; Pulse 65; Resp 16 S; Temp 98(O); Pulse Ox 100% on R/A; kc6 19:15 BP 190 / 63; Pulse 57; Resp 16; Pulse Ox 100% ; vc1 22:10 BP 140 / 53; Pulse 61; Resp 17; Pulse Ox 98% ; Pain 0/10; tm6 22:10 Pain Scale: Adult tm6 MDM: 18:55 Patient medically screened. sb4 06/15 00:33 Differential diagnosis: diverticulitis, non-specific abd pain, urinary tract infection. sb4 Data reviewed: vital signs, nurses notes, lab test result(s), radiologic studies, and as a result, I will discharge patient. Historians other than the Patient: Spouse/Significant Other: . Care significantly affected by the following chronic conditions: Diabetes, Hypertension. Counseling: I had a detailed discussion with the patient and/or guardian regarding the historical points, exam findings, and any diagnostic results supporting the discharge/admit diagnosis, lab results, radiology results, to return to the emergency department if symptoms worsen or persist or if there are any questions or concerns that arise at home. 06/14 19:03 Order name: CBC with Diff; Complete Time: 19:35 sb4 06/14 19:03 Order name: CMP; Complete Time: 19:54 sb4 06/14 19:03 Order name: Lipase; Complete Time: 19:54 sb4 06/14 19:03 Order name: Urinalysis w/ reflexes; Complete Time: 22:02 sb4 06/14 21:13 Order name: SARS RAPID; Complete Time: 22:30 sb4 06/14 21:13 Order name: Flu; Complete Time: 22:30 sb4 06/14 22:01 Order name: Urine Culture EDMD 06/14 19:03 Order name: CT Abd/Pelvis - IV Contrast Only; Complete Time: 20:58 sb4 06/14 19:03 Order name: IV Saline Lock; Complete Time: 19:21 sb4 06/14 19:03 Order name: Labs collected and sent; Complete Time: 19:21 sb4 Administered Medications: 06/14 20:10 Drug: NS 0.9% IV 1000 ml IV at 1 bolus Per protocol; 1000 mL bolus Route: IV; Rate: 1 vc1 bolus; Site: left antecubital; 22:15 Drug: Rocephin IV 1 grams IV at calculated rate once; Given slow IV push per pharmacy jb4 instructions Route: IV; Rate: calculated rate; Site: left hand; 22:36 Follow up: IV Status: Completed infusion; IV Intake: 10ml vc1 22:36 Follow up: Response: No adverse reaction; Marked relief of symptoms vc1 Disposition Summary: 06/14/23 22:29 Discharge Ordered Notes: Location: Home sb4 Problem: new sb4 Symptoms: have improved sb4 Condition: Stable sb4 Diagnosis - UTI/ Urinary tract infection, site not specified sb4 Followup: sb4 - With: Private Physician - When: As needed - Reason: Trouble breathing, Worsening of condition Discharge Instructions: - Discharge Summary Sheet sb4 - Urinary Tract Infection, Adult, [id number] sb4 Forms: - Medication Reconciliation Form sb4 - Thank You Letter sb4 - Antibiotic Education sb4 - Prescription Opioid Use sb4 - Patient Portal Instructions sb4 - Leadership Thank You Letter sb4 Prescriptions: - cefpodoxime 100 mg Oral Tablet - take 1 tablet ORAL route every 12 hours for 10 days take with food; 20 tablet; sb4 Refills: 0, Product Selection Permitted Addendum: 06/16/2023 21:14 I was immediately available for consultation during this patient's visit. I did not e c2 personally see the patient or guide the patient's care. . Signatures: Dispatcher [employer] Josue Peters RN RN jb4 Ladonna Liu RN RN vc1 Darlin Van RN RN kc6 Dayanara Grier PA-C PA-C sb4 Shorty Small MD MD ec2
--- NOTE | 2023-06-14 22:30 | ER ---
Nurse's Notes [facility] Name: Kate Love Age: 82 yrs Sex: Female : 1940 Arrival Date: 06/14/2023 Time: 18:40 Bed 4 Private MD: Diagnosis: UTI/ Urinary tract infection, site not specified Presentation: 06/14 18:47 Chief complaint: EMS states: pt has a hx of recent carotid stent replacement and was kc6 discharge home from a rehab facility. pts reports lethargy, and decreased appetite. pt reported 10/10 lower belly pain for EMS. 100mcg of Fentanyl and 4mg of Zofran given en route. BGL 103. Coronavirus screen: At this time, the client does not indicate any symptoms associated with coronavirus-19. Ebola Screen: No symptoms or risks identified at this time. Initial Sepsis Screen: Does the patient meet any 2 criteria? No. Patient's initial sepsis screen is negative. Does the patient have a suspected source of infection? No. Patient's initial sepsis screen is negative. Risk Assessment: Do you want to hurt yourself or someone else? Patient reports no desire to harm self or others. Onset of symptoms was June 14, 2023. 18:47 Method Of Arrival: EMS: [place] [address] 18:47 Acuity: AURELIA 3 kc6 Triage Assessment: 18:50 General: Appears in no apparent distress. uncomfortable, well groomed, well developed, kc6 Behavior is calm, cooperative, appropriate for age. Pain: Complains of pain in right lower quadrant and left lower quadrant. EENT: No signs and/or symptoms were reported regarding the EENT system. Neuro: Level of Consciousness is awake, alert, obeys commands, Oriented to person, place, time, situation, Appropriate for age. Cardiovascular: Capillary refill < 3 seconds. Respiratory: Airway is patent Trachea midline Respiratory effort is even, unlabored, Respiratory pattern is regular, symmetrical. GI: Abdomen is flat, non-distended, Reports lower abdominal pain, constipation, diarrhea, nausea, vomiting. : No signs and/or symptoms were reported regarding the genitourinary system. Derm: No signs and/or symptoms reported regarding the dermatologic system. Skin is intact, is healthy with good turgor, Skin is pink, warm \T\ dry. Musculoskeletal: No signs and/or symptoms reported regarding the musculoskeletal system. Circulation, motion, and sensation intact. Capillary refill < 3 seconds, Range of motion: intact in all extremities. Historical: - Allergies: 18:50 No Known Allergies; kc6 - PMHx: 18:50 Asthma; cardiac stent x2; Diabetes - IDDM; Hyperlipidemia; Hypertension; Myocardial kc6 infarction; Transient cerebral ischemia; perforated rectum; - PSHx: 18:50 Cholecystectomy; right \T\ left knee; right and left shoulder; laminectomy; kc6 - Immunization history:: Adult Immunizations unknown. - Social history:: Smoking status: unknown. Screenin:53 [facility] [place] ED Fall Risk Assessment (Adult) History of falling in the last 3 months, kc6 including since admission No falls in past 3 months (0 pts) Confusion or Disorientation No (0 pts) Intoxicated or Sedated No (0 pts) Impaired Gait No (0 pts) Mobility Assist Device Used No (0 pt) Altered Elimination No (0 pt) Score/Fall Risk Level 0 - 2 = Low Risk. Abuse screen: Denies threats or abuse. Denies injuries from another. Nutritional screening: No deficits noted. Tuberculosis screening: No symptoms or risk factors identified. Assessment: 18:53 Reassessment: please see triage assesment. kc6 22:10 Reassessment: Patient appears in no apparent distress at this time. Patient and/or 6 family updated on plan of care and expected duration. Pain level reassessed. Patient is alert, oriented x 3, equal unlabored respirations, skin warm/dry/pink. Vital Signs: 18:47 BP 212 / 76; Pulse 65; Resp 16 S; Temp 98(O); Pulse Ox 100% on R/A; kc6 19:15 BP 190 / 63; Pulse 57; Resp 16; Pulse Ox 100% ; vc1 22:10 BP 140 / 53; Pulse 61; Resp 17; Pulse Ox 98% ; Pain 0/10; tm6 22:10 Pain Scale: Adult 6 ED Course: 18:47 Patient arrived in ED. kc6 18:50 Triage completed. kc6 18:50 Arm band placed on. kc6 18:53 Patient has correct armband on for positive identification. Bed in low position. Call [facility] light in reach. Side rails up X2. Adult w/ patient. Client placed on continuous cardiac and pulse oximetry monitoring. NIBP monitoring applied. 18:53 Maintain EMS IV. Dressing intact. Good blood return noted. Site clean \T\ dry. Gauge \T\ kartik 6 site: 22G L Wrist. Patient maintains SpO2 saturation greater than 95% on room air. 18:55 Day[facility] Grier [facility] sb4 18:55 Shorty Small MD is Attending Physician. sb4 19:10 Ladonna Liu, JENNIE is Primary Nurse. vc1 19:20 Radiology exam delayed due to lab results not completed at this time. (BUN/Creatinine). nj 19:21 CBC with Diff Sent. vc1 19:21 CMP Sent. vc1 19:21 Lipase Sent. vc1 19:21 Inserted saline lock: 22 gauge in left antecubital area, using aseptic technique. Blood vc1 collected. 20:38 CT Abd/Pelvis - IV Contrast Only In Process Unspecified. EDMS 22:35 No provider procedures requiring assistance completed. vc1 22:42 Provided Education on: medications. tm6 22:42 IV discontinued, intact, bleeding controlled, No redness/swelling at site. Pressure tm6 dressing applied. Administered Medications: 20:10 Drug: NS 0.9% IV 1000 ml IV at 1 bolus Per protocol; 1000 mL bolus Route: IV; Rate: 1 vc1 bolus; Site: left antecubital; 22:15 Drug: Rocephin IV 1 grams IV at calculated rate once; Given slow IV push per pharmacy jb4 instructions Route: IV; Rate: calculated rate; Site: left hand; 22:36 Follow up: IV Status: Completed infusion; IV Intake: 10ml vc1 22:36 Follow up: Response: No adverse reaction; Marked relief of symptoms vc1 Medication: 22:35 VIS not applicable for this client. vc1 Intake: 22:36 IV: 10ml; Total: 10ml. vc1 Outcome: 22:29 Discharge ordered by . sb4 22:41 Discharged to home via wheelchair, tm6 22:41 Condition: stable 22:41 Discharge instructions given to patient, family, Instructed on discharge instructions, follow up and referral plans. medication usage, Demonstrated understanding of instructions, follow-up care, medications, Prescriptions given X 1, 22:47 Patient left the ED. tm6 Signatures: Dispatcher [employer] EDMS Josue Aceves, RN RN jb4 Alan Scales Vanessa, RN RN vc1 Darlin Van, RN RN kc6 Dayanara Grier, MITCHELL PAXavierC sb4 Florentino Francisco, RN RN tm6
[2023-06-15 02:10] VITALS: TEMP 98
[2023-06-15 02:17] VITALS: BP 140/53; O2SAT 98
== END ==
LOC: ER 18:40
DX: N39.0 Urinary tract infection, site not specified (principal); E11.9 Type 2 diabetes mellitus without complications; I10 Essential (primary) hypertension; Z11.52 Encounter for screening for COVID-19; Z95.818 Presence of other cardiac implants and grafts
CPT/HCPCS: 96365; 87088; 85025; 81001; 87086; 36415; 87077; 87186; 83690; 80053; 87804 ×2; 74177; 99285; 87811; Q9967; J7030; J0696

== ENCOUNTER 2023-08-28 20:10 | Observation (INO) | payer OTHER ==
[2023-08-28 21:01] LABS: Absolute Lymphocytes (CBC) 0.4 K/uL (0.7-4.9); Absolute Monocytes 0.7 K/uL (0.1-1.3); Absolute Neutrophil 6.4 K/uL (1.8-8.0); Basophils % 0.5 % (0-1.3); Eosinophils % 0.2 % (0-4.4); Hematocrit 30.8 % (36.0-45.0); Hemoglobin 10.2 g/dL (12.0-15.0); Lymphocytes % 5.2 % (15.3-44.8); MCH 28.9 pg (27.0-35.0); MCV 87.6 fL (80-100); MPV 9.6 fL (7.6-11.3); Monocytes % 8.9 % (3.3-12.3); Neutrophils % 85.2 % (41.7-73.7); Nucleated Red Blood Cells % 0.1 % (0-0); Platelets 191 thou/uL (152-406); RBC Red Blood Cell Count 3.51 M/uL (3.86-4.86); Red Cell Distribution Width 14.6 % (12.1-15.2)
[2023-08-28 21:05] LABS: PT Prothrombin Time 13.5 SECONDS (9.5-12.5); Protime INR 1.23
[2023-08-28] MEDS ORDERED: ACETAMINOPHEN 500 MG TAB ONE (21:08)
[2023-08-28] MEDS ORDERED: NA CHLORIDE 0.9% 500 ML ONE (21:08)
[2023-08-28] MEDS ORDERED: IBUPROFEN 400 MG TAB ONE (21:08)
[2023-08-28] MEDS ORDERED: ONDANSETRON 4 MG/2 ML VIAL ONE (21:08)
[2023-08-28] MEDS ORDERED: NA CHLORIDE 0.9% 100 ML ONE (21:09)
[2023-08-28] MEDS ORDERED: PIPERACIL/TAZO 3.375 GM VIAL IV ONE (21:09)
[2023-08-28] MEDS ORDERED: NA CHLORIDE 0.9% 1,000 ML ONE (21:09)
--- NOTE | 2023-08-28 21:14 | RAD REPORT ---
EXAM DESCRIPTION: CT - Chest Abd Pelvis Wo Con - 08/28/2023 9:05 pm CLINICAL HISTORY: Chest and abdomen pain. ABDOMINAL DISTENTION COMPARISON: No comparisons TECHNIQUE: A limited noncontrast study was submitted. All CT scans are performed using dose optimization technique as appropriate and may include automated exposure control or mA/KV adjustment according to patient size. FINDINGS: The lungs are clear.No pleural or pericardial effusion.No intrathoracic adenopathy. The liver, spleen, pancreas, adrenal glands and kidneys are within normal limits. Cholecystectomy cli ps. No bowel obstruction, free air, free fluid or abscess. Significant stool is present retained througho ut the colon. Nonvisualized appendix. No pathologic lymphadenopathy in the abdomen or pelvis. Moderate lumbar degenerative changes. IMPRESSION: Prominent stool retention throughout the colon.
[2023-08-28 21:20] LABS: Albumin 2.5 g/dL (3.4-5.0); Albumin/Globulin Ratio 0.8 (1.1-1.8); Anion Gap 10.3 mEq/L (5.0-15.0); Bilirubin Total 0.3 mg/dL (0.2-1.0); C-Reactive Protein 29.9 mg/L (<3.00); Globulin 3.3 g/dL (2.3-3.5); Potassium 4.3 mEq/L (3.5-5.1); Protein, Total 5.8 g/dL (6.4-8.2); Thyroid Stimulating Hormone 1.84 uIU/mL (0.358-3.740)
--- NOTE | 2023-08-28 21:20 | RAD REPORT ---
EXAM DESCRIPTION: RAD - Chest Single View - 08/28/2023 9:14 pm CLINICAL HISTORY: CONGESTION Chest pain. COMPARISON: Abdomen 1 View (KUB) dated 05/06/2023; Abdomen 1 View (KUB) dated 05/06/2023; Chest Sing le View dated 05/04/2023; Chest Single View dated 03/18/2023 FINDINGS: Portable technique limits examination quality. The lungs are grossly clear. The heart is normal in size. No displaced fractures.Hardware present bot h proximal humeri. Cervical spine hardware plate also noted. IMPRESSION: No acute intrathoracic process suspected.
[2023-08-28 21:23] LABS: SARS-CoV-2 Antigen CONTROL BLUE LINE VIS/BG OK
[2023-08-28 21:24] LABS: SARS-CoV-2 Antigen Rapid Res Positive (Negative)
[2023-08-28 22:00] LABS: Specific Gravity 1.021 (1.005-1.030); Sqamous Epithelial <5 /HPF (None Seen); Urine Bacteria <20 /HPF (<20); Urine Bilirubin NEGATIVE (Negative); Urine Blood Negative (Negative); Urine Clarity Extremely Turbid (Clear); Urine Color Light-Yellow (Yellow); Urine Culture Reflex Order NOT NEEDED; Urine Glucose TRACE (Negative); Urine Ketones NEGATIVE (Negative); Urine Microscopic Reflex YN ORDER UMIC; Urine Mucus Slight /HPF (None Seen); Urine Nitrite NEGATIVE (Negative); Urine Protein 3+ (Negative); Urine RBC <5 /HPF (None Seen); Urine Urobilinogen Normal (Normal); Urine WBC <5 /HPF (<5); Urine WBC Clump Occasional /HPF (None Seen)
[2023-08-28] MEDS ORDERED: CALCIUM GLUCONATE 1 GM IVPB 1 GM/50 ML BAG IV ONE (22:18)
--- NOTE | 2023-08-28 22:20 | EDPHYS ---
Physician Documentation [facility] Name: Kate Love Age: 82 yrs Sex: Female : 1940 Arrival Date: 08/28/2023 Time: 20:10 Bed 20 Private MD: ED Physician Jules Hu HPI: 08/27 20:26 This 82 yrs old Female presents to ER via Unassigned with complaints of sp4 sepsis. 22:20 82-year-old female presents with EMS for 2 days of fever, generalized weakness, sp4 malaise, feeling overall unwell. Patient reports symptoms of frequent urination. . 22:31 Patient's medications include insulin, Plavix, clonidine, carvedilol, valsartan, sp4 furosemide, D3, Senokot, clonidine, ezetimibe, biotin, folic acid, coenzyme Q 10, Senokot S, hydrocodone as needed. MiraLAX as needed for constipation. Past surgeries include perforated rectum, neck surgery, right knee total knee replacement, left knee total knee replacement, laminectomy L1-2 through L5, right shoulder and left shoulder surgery, 2 coronary stents, gallbladder surgery, TIA, carotid artery stent, carotid artery stent removal and repair. . Historical: - Allergies: 20:27 Lyrica; km8 - PMHx: 20:27 Asthma; cardiac stent x2; Diabetes - IDDM; Hyperlipidemia; Hypertension; Myocardial km8 infarction; perforated rectum; Transient cerebral ischemia; - PSHx: 20:27 Cholecystectomy; laminectomy; right \T\ left knee; right and left shoulder; km8 - Immunization history:: Client reports receiving the 2nd dose of the Covid vaccine, Pneumococcal vaccine is up to date, Flu vaccine is up to date. - Social history:: Smoking status: Patient denies any tobacco usage or history of. Patient uses alcohol, but reports only rare drinking. Patient/guardian denies using street drugs. - Family history:: not pertinent. ROS: 22:24 Constitutional: Positive for fever, nasal congestion, fatigue, malaise, frequent sp4 urination 22:24 All other systems are negative, Exam: 22:24 Constitutional: This is a well developed, well nourished patient who is awake, alert sp4 patient is febrile and ill-appearing but nontoxic with some hypertension on arrival Head/Face: Normocephalic, atraumatic. Eyes: Pupils equal round and reactive to light, extra-ocular motions intact. Lids and lashes normal. Conjunctiva and sclera are not injected. Cornea within normal limits. Periorbital areas with no swelling, redness, or edema. ENT: Nares patent. No nasal discharge, no septal abnormalities noted. Tympanic membranes are normal and external auditory canals are clear. Oropharynx with no redness, swelling, or masses, exudates, or evidence of obstruction, uvula midline. Mucous membranes moist. Neck: Trachea midline, no thyromegaly or masses palpated, and no cervical lymphadenopathy. Supple, full range of motion without nuchal rigidity, or vertebral point tenderness. Chest/axilla: Normal chest wall appearance and motion. Nontender with no deformity. No lesions are appreciated. Cardiovascular: Regular rate and rhythm with a normal S1 and S2. No gallops, murmurs, or rubs. Normal PMI, no JVD. No pulse deficits. Respiratory: Lungs have equal breath sounds bilaterally, clear to auscultation and percussion. No rales, rhonchi or wheezes noted. No increased work of breathing, no retractions or nasal flaring. Abdomen/GI: Soft, with normal bowel sounds. No distension or tympany. No guarding or rebound. No evidence of tenderness throughout. Back: No spinal tenderness. No costovertebral tenderness. Skin: Warm, dry with normal turgor. Normal color with no rashes, no lesions, and no evidence of cellulitis. MS/ Extremity: Pulses equal, no cyanosis. Neurovascular intact. Full, normal range of motion. Neuro: Awake and alert, GCS 15, oriented to person, place, time, and situation. Cranial nerves II-XII grossly intact. Motor strength 5/5 in all extremities. Sensory grossly intact. Psych: Awake, alert, with orientation to person, place and time. Behavior, mood, and affect are within normal limits 22:30 ECG was reviewed by the Attending Physician. EKG at 2048 sinus bradycardia at the sp4 rate of 57. Otherwise normal Vital Signs: 20:24 BP 158 / 73; Pulse 61; Resp 17; Temp 102.7(R); Pulse Ox 97% on R/A; Weight 67.13 kg km8 (R); Height 5 ft. 5 in. (R); Pain 4/10; 21:25 BP 133 / 55; Pulse 56; Resp 18; Temp 100.8(Ca); Pulse Ox 96% on R/A; km8 21:30 BP 133 / 56; Pulse 60; Resp 18; Temp 100.8(Ca); Pulse Ox 97% on R/A; km8 22:00 BP 135 / 50; Pulse 55; Resp 14; Temp 100(Ca); Pulse Ox 96% on R/A; km8 22:30 BP 131 / 48; Pulse 54; Resp 16; Pulse Ox 97% on R/A; km8 20:24 Body Mass Index 24.63 (67.13 kg, 165.1 cm) km8 20:24 Pain Scale: Adult km8 Raphael Coma Score: 20:30 Eye Response: spontaneous(4). Motor Response: obeys commands(6). Verbal Response: km8 oriented(5). Total: 15. 22:24 Eye Response: spontaneous(4). Motor Response: obeys commands(6). Verbal Response: sp4 oriented(5). Total: 15. MDM: 20:30 Patient medically screened. sp4 22:24 Differential Diagnosis altered mental status, sepsis, flu, UTI, Pyelonephritis, Acute sp4 viral illness. . Data reviewed: vital signs, nurses notes, EMS record, old medical records, lab test result(s), EKG, radiologic studies, CT scan, plain films. ED course: EXAM DESCRIPTION: CT - Chest Abd Pelvis Wo Con - 08/28/2023 9:05 pm CLINICAL HISTORY: Chest and abdomen pain. ABDOMINAL DISTENTION COMPARISON: No comparisons TECHNIQUE: A limited noncontrast study was submitted. All CT scans are performed using dose optimization technique as appropriate and may include automated exposure control or mA/KV adjustment according to patient size. FINDINGS: The lungs are clear.No pleural or pericardial effusion.No intrathoracic adenopathy. The liver, spleen, pancreas, adrenal glands and kidneys are within normal limits. Cholecystectomy clips. No bowel obstruction, free air, free fluid or abscess. Significant stool is present retained throughout the colon. Nonvisualized appendix. No pathologic lymphadenopathy in the abdomen or pelvis . Moderate lumbar degenerative changes. IMPRESSION: Prominent stool retention throughout the colon.. ED course: EXAM DESCRIPTION: RAD - Chest Single View - 08/28/2023 9:14 pm CLINICAL HISTORY: CONGESTION Chest pain. COMPARISON: Abdomen 1 View (KUB) dated 05/06/2023; Abdomen 1 View (KUB) dated 05/06/2023; Chest Single View dated 05/04/2023; Chest Single View dated 03/18/2023 FINDINGS: Portable technique limits examination quality. The lungs are grossly clear. The heart is normal in size. No displaced fractures.Hardware present both proximal humeri. Cervical spine hardware plate also noted. IMPRESSION: No acute intrathoracic process suspected.. 08/27 20:26 Order name: Blood Culture Adult (2) [facility] 08/27 20:26 Order name: CBC with Diff; Complete Time: 22:38 [facility] 08/27 20:26 Order name: CMP; Complete Time: 22: [facility] 08/27 20:26 Order name: Lactate w/ 2H reflex if indic.; Complete Time: 22:09 [facility] 08/27 20:26 Order name: Protime (+inr); Complete Time: 22: [facility] 08/27 20:26 Order name: Ptt, Activated; Complete Time: 22: [facility] 08/27 20:26 Order name: Urinalysis w/ reflexes; Complete Time: 22:09 [facility] 08/27 20:29 Order name: SARS RAPID; Complete Time: 22:09 [facility] 08/27 20:29 Order name: Influenza Screen (a \T\ B); Complete Time: 22:09 [facility] 08/27 20:30 Order name: Procalcitonin; Complete Time: 22:09 [facility] 08/27 20:54 Order name: C-Reactive Protein; Complete Time: 22:09 [facility] 08/27 20:54 Order name: Thyroid Stimulating Hormone; Complete Time: 22:09 EDMS 08/27 21:08 Order name: Manual Differential; Complete Time: 22:38 EDMS 08/28 08:30 Order name: Glucose, Ancillary Testing [facility] 08/28 17:58 Order name: Glucose, Ancillary Testing [facility] 08/27 20:26 Order name: Chest Single View XRAY; Complete Time: 22:09 [facility] 08/27 20:29 Order name: CT Chest Abdomen Pelvis W/O Contrast; Complete Time: 22:09 [facility] 08/27 20:26 Order name: EKG; Complete Time: 20:27 [facility] 08/27 20:26 Order name: Accucheck; Complete Time: 21:34 sp4 08/27 20:26 Order name: Cardiac monitoring; Complete Time: :59 4 08/27 20:26 Order name: Cath; Complete Time: :59 4 08/27 20:26 Order name: EKG - Nurse/Tech; Complete Time: 21:53 4 08/27 20:26 Order name: IV Saline Lock - Large Bore; Complete Time: :59 4 08/27 20:26 Order name: Labs collected and sent; Complete Time: :59 4 08/27 20:26 Order name: O2 Per Protocol; Complete Time: :59 4 08/27 20:26 Order name: O2 Sat Monitoring; Complete Time: :59 4 08/27 20:26 Order name: Vital Signs; Complete Time: :59 4 EC:30 Rate is 57 beats/min. Rhythm is regular, Sinus bradycardia with PACs. QRS [place] is sp4 Normal. FL interval is normal. QRS interval is normal. QT interval is normal. No Q waves. T waves are Normal. No ST changes noted. Clinical impression: No evidence of ischemia. Interpreted by me. Reviewed by me. Administered Medications: 21:33 Drug: Acetaminophen PO 1000 mg PO once Route: PO; 8 22:44 Follow up: Response: No adverse reaction; Temperature is decreased 8 21:33 Drug: Ibuprofen PO 800 mg PO once Route: PO; km8 22:44 Follow up: Response: No adverse reaction; Temperature is decreased 8 21:34 Drug: NS 0.9% IV 500 ml IV at bolus once Route: IV; Rate: bolus; Site: left hand; km8 22:43 Follow up: IV Status: Completed infusion; IV Intake: 500ml 8 21:34 Drug: Ondansetron IVP 4 mg IVP once; over 2 minutes Route: IVP; Site: left hand; km8 22:14 Follow up: Response: No adverse reaction 8 21:53 Drug: Piperacillin-Tazobactam IVPB 3.375 grams IVPB once over 60 mins; (mix in NS 100 km8 mL) Route: IVPB; Infused Over: 60 mins; Site: left hand; 22:14 Follow up: IV Status: Completed infusion; IV Intake: 100ml km8 21:53 Drug: NS 0.9% IV 1000 ml IV at 125 ml/hr continuous Route: IV; Rate: 125 ml/hr; Site: [facility] left hand; 23:02 Follow up: IV Status: Infusion continued upon admission [facility] 22:37 Drug: Calcium Gluconate IVPB 1 grams IVPB once over 60 mins; (mix in NS 100 mL) Route: [facility] IVPB; Infused Over: 60 mins; Site: left wrist; 23:02 Follow up: IV Status: Completed infusion; IV Intake: 100ml [facility] 22:38 Drug: Dextromethorphan-Guaifenesin PO Liquid 10 mg-100 mg/5 mL 10 ml PO once Route: PO; [facility] 23:38 Follow up: Response: No adverse reaction; Marked relief of symptoms ha1 22:44 Drug: Loratadine PO 10 mg PO once Route: PO; [facility] 23:38 Follow up: Response: No adverse reaction; Marked relief of symptoms 1 08/28 01:16 Drug: Albuterol Inhalation 2.5 mg Inhalation once Route: Inhalation; ha1 01:30 Follow up: Response: No adverse reaction; Marked relief of symptoms ha1 01:17 Drug: [place] PO 10 mg-325 mg 1 tabs PO once Route: PO; ha1 01:30 Follow up: Response: No adverse reaction; Marked relief of symptoms ha1 01:28 Drug: Promethazine PO 25 mg PO once Route: PO; ha1 01:30 Follow up: Response: No adverse reaction; Marked relief of symptoms ha1 Disposition Summary: 08/28/23 22:19 Hospitalization Ordered Notes: Hospitalization Status: Observation sp4 Provider: Joao Paz sp4 Condition: Stable sp4 Problem: new sp4 Symptoms: have improved sp4 Bed/Room Type: Standard sp4 Location: Telemetry/MedSurg (Inpatient)(08/29/23 19:00) [facility] Room Assignment: [facility](08/29/23 19:00) [facility] Diagnosis - Dehydration sp4 - Acute COVID-19, moderate dehydration, acute renal insufficiency, generalized sp4 weakness - Hypocalcemia sp4 Forms: - Medication Reconciliation Form sp4 - SBAR form sp4 - Leadership Thank You Letter sp4 Signatures: Dispatcher [employer] Sugey Byers RN RN lg3 Alba Chu Heidy, RN RN ha1 Autumn Alvares bc6 Jules Hu MD MD sp4 Kelsie Brewster RN RN 8 Corrections: (The following items were deleted from the chart) 08/27 20:28 20:27 PMHx: Myocardial infarction; [place] [address] 20:54 20:31 C-REACTIVE PROTEIN+C.LAB.BRZ ordered. EDMS EDMS 20:54 20:31 THYROID STIMULAT HORMONE+C.LAB.BRZ ordered. EDMS EDMS 22:34 22:19 Telemetry/MedSurg (observation) sp4 wm 22:34 22:19 sp4 wm 22:39 22:34 wm lg3 08/28 16:00 08/27 22:34 [facility] ER HOLD wm bc6 08/28 16:00 08/27 22:39 ERHOLD- lg3 bc6 08/28 16:17 16:00 Telemetry/MedSurg (Inpatient) bc6 bc6 16:17 16:00 415 bc6 bc6 19:00 16:17 [facility] ER HOLD bc6 bc6 19:00 16:17 ERHOLD- bc6 bc6
--- NOTE | 2023-08-28 22:20 | ER ---
Nurse's Notes [facility] Name: Kate Love Age: 82 yrs Sex: Female : 1940 Arrival Date: 08/28/2023 Time: 20:10 Bed 20 Private MD: Diagnosis: Dehydration;Acute COVID-19, moderate dehydration, acute renal insufficiency, generalized weakness;Hypocalcemia Presentation: 08/27 20:24 Chief complaint: EMS states: toned out for fever for 2 days; pt currently on ABX. km8 Coronavirus screen: Client denies travel out of the [place] in the last 14 days. Ebola Screen: No symptoms or risks identified at this time. Initial Sepsis Screen: Does the patient meet any 2 criteria? Temp <36.0*C (96.8*F)) or > 38.3*C (100.9*F). No. Patient's initial sepsis screen is negative. Does the patient have a suspected source of infection? No. Patient's initial sepsis screen is negative. Risk Assessment: Do you want to hurt yourself or someone else? Patient reports no desire to harm self or others. Onset of symptoms was August 26, 2023. Care prior to arrival: Medication(s) given: Normal saline infusion, 500 mL, Tylenol, 650 mg, IV initiated. 22 GA, in the right antecubital area. 20:24 Acuity: AURELIA 2 km8 20:24 Method Of Arrival: EMS: [facility] km8 Triage Assessment: 20:27 General: Appears in no apparent distress. comfortable, Behavior is calm, cooperative, km8 appropriate for age. Pain: Complains of pain in left low back Pain currently is 4 out of 10 on a pain scale. Quality of pain is described as aching, Pain began years ago. EENT: No signs and/or symptoms were reported regarding the EENT system. Neuro: Level of Consciousness is awake, alert, obeys commands, Oriented to person, place, time, situation. Cardiovascular: Denies chest pain, shortness of breath, Patient's skin is warm and dry. Respiratory: Airway is patent Respiratory effort is even, unlabored, Respiratory pattern is regular, symmetrical. GI: No signs and/or symptoms were reported involving the gastrointestinal system. : Reports urgency, urinary frequency. Derm: Skin is fragile, Skin is clammy, Skin is normal, Skin temperature is warm. Musculoskeletal: No signs and/or symptoms reported regarding the musculoskeletal system. Range of motion: intact in all extremities. Historical: - Allergies: 20:27 Lyrica; km8 - PMHx: 20:27 Asthma; cardiac stent x2; Diabetes - IDDM; Hyperlipidemia; Hypertension; Myocardial km8 infarction; perforated rectum; Transient cerebral ischemia; - PSHx: 20:27 Cholecystectomy; laminectomy; right \T\ left knee; right and left shoulder; km8 - Immunization history:: Client reports receiving the 2nd dose of the Covid vaccine, Pneumococcal vaccine is up to date, Flu vaccine is up to date. - Social history:: Smoking status: Patient denies any tobacco usage or history of. Patient uses alcohol, but reports only rare drinking. Patient/guardian denies using street drugs. - Family history:: not pertinent. Screenin:30 [facility] ED Fall Risk Assessment (Adult) History of falling in the last 3 months, km8 including since admission No falls in past 3 months (0 pts) Confusion or Disorientation No (0 pts) Intoxicated or Sedated No (0 pts) Impaired Gait Yes (1 pt) Mobility Assist Device Used No (0 pt) Altered Elimination No (0 pt) Score/Fall Risk Level 0 - 2 = Low Risk Oriented to surroundings, Maintained a safe environment, Educated pt \T\ family on fall prevention, incl call for assistance when getting out of bed, Assessed \T\ reinforced patient's understanding of fall precautions. Abuse screen: Denies threats or abuse. Denies injuries from another. Nutritional screening: No deficits noted. Tuberculosis screening: No symptoms or risk factors identified. Assessment: 20:30 Reassessment: see triage assessment/notes. km8 21:30 Reassessment: Patient appears in no apparent distress at this time. No changes from 8 previously documented assessment. Patient and/or family updated on plan of care and expected duration. Pain level reassessed. Patient is alert, oriented x 3, equal unlabored respirations, skin warm/dry/pink. 22:30 Reassessment: Patient appears in no apparent distress at this time. No changes from 8 previously documented assessment. Patient and/or family updated on plan of care and expected duration. Pain level reassessed. Patient is alert, oriented x 3, equal unlabored respirations, skin warm/dry/pink. Vital Signs: 20:24 BP 158 / 73; Pulse 61; Resp 17; Temp 102.7(R); Pulse Ox 97% on R/A; Weight 67.13 kg km8 (R); Height 5 ft. 5 in. (R); Pain 4/10; 21:25 BP 133 / 55; Pulse 56; Resp 18; Temp 100.8(Ca); Pulse Ox 96% on R/A; km8 21:30 BP 133 / 56; Pulse 60; Resp 18; Temp 100.8(Ca); Pulse Ox 97% on R/A; km8 22:00 BP 135 / 50; Pulse 55; Resp 14; Temp 100(Ca); Pulse Ox 96% on R/A; km8 22:30 BP 131 / 48; Pulse 54; Resp 16; Pulse Ox 97% on R/A; km8 20:24 Body Mass Index 24.63 (67.13 kg, 165.1 cm) km8 20:24 Pain Scale: Adult km Douglas Coma Score: 20:30 Eye Response: spontaneous(4). Motor Response: obeys commands(6). Verbal Response: km8 oriented(5). Total: 15. 22:24 Eye Response: spontaneous(4). Motor Response: obeys commands(6). Verbal Response: sp4 oriented(5). Total: 15. ED Course: 20:24 Patient arrived in ED. km8 20:24 Kelsie Brewster RN is Primary Nurse. km8 20:25 Jules Hu MD is Attending Physician. sp4 20:27 Triage completed. km8 20:27 Arm band placed on right wrist. km8 20:30 Patient has correct armband on for positive identification. Placed in gown. Bed in low km8 position. Call light in reach. Side rails up X2. lunchroom monitor on. Pulse ox on. NIBP on. Pillow given. 20:30 Patient maintains SpO2 saturation greater than 95% on room air. km8 20:43 Initial lab(s) drawn, by me, sent to lab. First set of blood cultures drawn by me. km8 20:43 Maintain EMS IV. Dressing intact. Good blood return noted. Site clean \T\ dry. Gauge \T\ km 8 site: 22 gauge right AC. Inserted saline lock: 22 gauge in right hand, using aseptic technique. Blood collected. 20:59 Influenza Screen (a \T\ B) Sent. km8 20:59 SARS RAPID Sent. km8 21:00 Rachel cath inserted, using sterile technique, 16 Fr., by ne, balloon inflated, to km gravity drainage, urine specimen collected. Patient tolerated well. 21:01 C-Reactive Protein Sent. km8 21:01 Thyroid Stimulating Hormone Sent. km8 21: CBC with Diff Sent. km8 21:01 CMP Sent. km8 21:01 Protime (+inr) Sent. km8 21:01 Ptt, Activated Sent. km8 21:06 CT Chest Abdomen Pelvis W/O Contrast In Process Unspecified. EDMS 21:16 Chest Single View XRAY In Process Unspecified. EDMS 21:30 Second set of blood cultures drawn Urine collected: Rachel catheter specimen, clear. km8 21:34 Blood Culture Adult (2) Sent. km8 21:34 Lactate w/ 2H reflex if indic. Sent. km8 21:34 Urinalysis w/ reflexes Sent. km8 21:53 EKG done, by ED staff, reviewed by Jules Hu MD. km8 22:18 Joao Paz MD is Hospitalizing Provider. sp4 22:38 Rachel cath removed intact, balloon deflated. km8 23:00 Report received from JENNIE Iglesias. ha1 23:01 Provided Education on: admission process. km8 23:01 No provider procedures requiring assistance completed. Patient admitted, IV remains in [facility] place. 08/28 09:19 Adult w/ patient. Warm blanket given. Diet tray given. Assisted with dressing. [email or web address] Repositioned patient. Cleaned of incontinence. Linen changed. Administered Medications: 08/27 21:33 Drug: Acetaminophen PO 1000 mg PO once Route: PO; km8 22:44 Follow up: Response: No adverse reaction; Temperature is decreased 8 21:33 Drug: Ibuprofen PO 800 mg PO once Route: PO; 8 :44 Follow up: Response: No adverse reaction; Temperature is decreased 8 21:34 Drug: NS 0.9% IV 500 ml IV at bolus once Route: IV; Rate: bolus; Site: left hand; km 22:43 Follow up: IV Status: Completed infusion; IV Intake: 500ml [facility] 21:34 Drug: Ondansetron IVP 4 mg IVP once; over 2 minutes Route: IVP; Site: left hand; 8 22:14 Follow up: Response: No adverse reaction 21:53 Drug: Piperacillin-Tazobactam IVPB 3.375 grams IVPB once over 60 mins; (mix in NS 100 km8 mL) Route: IVPB; Infused Over: 60 mins; Site: left hand; 22:14 Follow up: IV Status: Completed infusion; IV Intake: 100ml 21:53 Drug: NS 0.9% IV 1000 ml IV at 125 ml/hr continuous Route: IV; Rate: 125 ml/hr; Site: [facility] left hand; 23:02 Follow up: IV Status: Infusion continued upon admission [facility] 22:37 Drug: Calcium Gluconate IVPB 1 grams IVPB once over 60 mins; (mix in NS 100 mL) Route: 8 IVPB; Infused Over: 60 mins; Site: left wrist; 23:02 Follow up: IV Status: Completed infusion; IV Intake: 100ml 22:38 Drug: Dextromethorphan-Guaifenesin PO Liquid 10 mg-100 mg/5 mL 10 ml PO once Route: PO; 23:38 Follow up: Response: No adverse reaction; Marked relief of symptoms 1 22:44 Drug: Loratadine PO 10 mg PO once Route: PO; 23:38 Follow up: Response: No adverse reaction; Marked relief of symptoms ha1 08/28 01:16 Drug: Albuterol Inhalation 2.5 mg Inhalation once Route: Inhalation; ha1 01:30 Follow up: Response: No adverse reaction; Marked relief of symptoms ha1 01:17 Drug: [place] PO 10 mg-325 mg 1 tabs PO once Route: PO; ha1 01:30 Follow up: Response: No adverse reaction; Marked relief of symptoms ha1 01:28 Drug: Promethazine PO 25 mg PO once Route: PO; ha1 01:30 Follow up: Response: No adverse reaction; Marked relief of symptoms ha1 Medication: 08/27 23:01 VIS not applicable for this client. [facility] Intake: 22:14 IV: 100ml; Total: 100ml. 22:43 IV: 500ml; Total: 600ml. 23:02 IV: 100ml; Total: 700ml. km8 Outcome: 22:19 Decision to Hospitalize by Provider. sp4 23:02 Admitted to ER Hold. Please see [facility] for further documentation. km8 23:02 Condition: stable 23:02 Instructed on the need for admit, 08/28 21:03 Patient left the ED. tm6 Signatures: Dispatcher [employer] EDElyse Hadley RN RN ha1 Jules Hu MD MD sp4 Kelsie Brewster RN RN km8 Florentino Francisco RN RN 6 Yordy Saunders jg11 Corrections: (The following items were deleted from the chart) 08/27 20:28 20:27 PMHx: Myocardial infarction; km8 km8 21:00 20:30 Maintain EMS IV. Dressing intact. Good blood return noted. Site clean \T\ dry. km8 Gauge \T\ site: 22 gauge right AC. km8 21:00 20:23 Inserted saline lock: 22 gauge in right hand, using aseptic technique. Blood km8 collected. km8 08/28 06:27 08/27 23:00 Report received from JENNIE Iglesias ha1 ha1
[2023-08-28 22:27] LABS: Band Neutrophils 3 % (0-1); Differential Total Cells Count 100; Lymphocytes 9 % (15-42); Monocytes 6 % (0-10); Segmented Neutrophils 81 % (40-80)
[2023-08-28 22:28] LABS: Blood Morphology Comment NOT SEEN (NOT SEEN); Platelet Estimate ADEQ
[2023-08-28] MEDS ORDERED: GUAIFENESIN/DM 5 ML UCUP ONE (22:33)
[2023-08-28] MEDS: LORATADINE 10 MG TAB ONE (22:37)
[2023-08-28 22:52] VITALS: BMI 24.6
[2023-08-29] MEDS ORDERED: ALBUTEROL 2.5 MG/3 ML NEB SOL NEB PRN (01:10)
[2023-08-29] MEDS: NA CHLORIDE 0.9% 1,000 ML IV SCH (01:10)
[2023-08-29] MEDS ORDERED: PROMETHAZINE 25 MG TABLET ONE (01:30)
[2023-08-29] MEDS ORDERED: HYDROCODONE/APAP 10/325 TAB ONE (01:30)
[2023-08-29 02:22] VITALS: O2SAT 97
[2023-08-29] MEDS ORDERED: ONDANSETRON 4 MG/2 ML VIAL IV PRN (03:00)
[2023-08-29] MEDS: INSULIN REGULAR (HUMAN) 100 UNIT/ML SQ SCH (07:30)
[2023-08-29] MEDS ORDERED: INSULIN REGULAR (HUMAN) 100 UNIT/ML ONE ×2 (08:26→17:51)
[2023-08-29] MEDS ORDERED: ACETAMINOPHEN 325 MG TABLET ONE ×3 (08:30→18:44)
[2023-08-29] MEDS: NIRMATRELVIR/RITONAVIR TABLET PO SCH (09:00)
[2023-08-29] MEDS: ACETAMINOPHEN 325 MG TABLET PO PRN (09:32)
[2023-08-29] MEDS: ENOXAPARIN 40 MG/0.4 ML SQ ONE (10:00)
--- NOTE | 2023-08-29 11:22 | HP ---
Date of Admission: 08/29/2023 Chief Complaint: Fever. History Of Present Illness: This is an 82-year-old very pleasant female patient, who was brought into emergency room late last night with complaints of fever. After she was evaluated in the ER, she was admitted to the hospital with COVID-19 infection. The patient has some cough and chest congestion associated with this fever, not coughing up any mucus. Denies any shortness of breath. No diarrhea. No vomiting. She has some body ache with this. Allergies: NO KNOWN ALLERGIES. Medications: List reviewed. Review of Systems: Constitutional: As mentioned above. Respiratory: As mentioned above. All other systems reviewed and negative. Past Medical History: Significant for type 2 diabetes mellitus, hyperparathyroidism, COVID-19 infection in 2019, hypertension, hyperlipidemia, coronary artery disease, STEMI on December 12, 2019, carotid artery stenosis, osteoarthritis at multiple sites, gastroesophageal reflux disease, diverticulosis, vitamin D deficiency, and history of recurrent UTI and recently had UTI this week and currently she is on antibiotic for that. Past Surgical History: Tonsillectomy, coronary artery stent placement for STEMI on December 14, 2019, bilateral knee replacement surgery, back surgery, cervical spine surgery, shoulder surgery, carotid artery stent placement in March 2023. Family History: Father , had COPD. Mother , had diabetes and heart disease. Social History: Negative for smoking and alcohol use. Physical Examination: Vital Signs: When she first came into emergency room, temperature 99.2, pulse 54, respiratory rate 20, blood pressure 151/52, oxygen saturation 96% on room air. General: Awake, alert, oriented, not in distress. HEENT: Head atraumatic, normocephalic. Conjunctivae nonerythematous. Sclerae white. Mouth, no thrush or edema noted. Ears/Nose, no mass, lesion, discharge noted. Neck: Supple. No JVD, lymph nodes, bruit, thyromegaly noted. Lungs: Bilateral good equal air entry. Clear to auscultation. No rhonchi. No rales. Heart: Normal heart sounds, no murmur or gallop. Abdomen: Soft, bowel sounds normal. No guarding, rigidity, tenderness, mass, hepatosplenomegaly, distention, or bruit noted. Extremities: No leg edema. No calf tenderness. Skin: No rash, ulcer, cellulitis. Lymphatics: No lymph node enlargement in neck, supraclavicular, infraclavicular region. Neuro: No focal neurological deficit. Chest: Unremarkable. External Genitalia: Deferred. Rectal: Deferred. Laboratory Data: COVID-19 test positive. White count 7.5, hemoglobin 10.2, platelets 191. Sodium 135, potassium 4.3, chloride 106, bicarb 23, BUN 29, creatinine 1.30, glucose 223. Liver function tests unremarkable. CRP 29.9. Procalcitonin 0.08. TSH 1.840. Urinalysis unremarkable. Chest x-ray, no acute intrathoracic changes. CAT scan of the chest, abdomen, and pelvis shows prominent stool retention throughout the colon. Impression: 1. COVID-19 infection. 2. Generalized weakness. 3. Debility. 4. Osteoarthritis, multiple sites. 5. Coronary artery disease. 6. Anemia, chronic, unspecified. 7. Hypertension. 8. Hyperlipidemia. 9. Type 2 diabetes mellitus. 10. Carotid artery stenosis, bilateral. 11. Diverticulosis. 12. Gastroesophageal reflux disease. Plan: We will go ahead and admit the patient to hospital for further evaluation and management of this problem. The patient is hemodynamically stable. She does not have any hypoxia, maintaining adequate oxygenation on room air. The patient will be started on antiviral treatment, paxlovid, and she qualifies for renal dose which is 2 tablets 2 times a day in view of her estimated GFR between 30 to 60. DVT prophylaxis will be given using Lovenox per order. For her diabetes, we will manage that with sliding scale insulin. For generalized weakness and debility, usually she is able to transfer out of bed with her 's assistance and then ambulate at home using walker and this morning we did try that to see if she is able to ambulate like the way she normally does and we will be able to discharge her to go home, but unfortunately she is weaker than usual and not able to perform this activity safely, so it will be best just to keep her in the hospital today and hopefully plan to discharge her to go home tomorrow. Physical therapy consultation was requested. For her hypertension, we will continue antihypertensive medication per order. Monitor blood pressure. If necessary, adjust medication. For her hyperlipidemia, we will continue her statin therapy per order. For coronary artery disease, no need for further intervention. Continue her home medications per order. I will see her tomorrow morning. MORIAH/BRIAN Voice ID: [id number]
[2023-08-29] MEDS: CHLORASEPTIC LOZENGES PO PRN ×2 (11:30→23:51)
[2023-08-29] MEDS ORDERED: ENOXAPARIN 40 MG/0.4 ML SQ ONE (11:30)
[2023-08-29] MEDS ORDERED: NA CHLORIDE 0.9% 1,000 ML ONE (14:40)
[2023-08-29] MEDS ORDERED: IBUPROFEN 200 MG TAB PO ONE (15:57)
[2023-08-29] MEDS ORDERED: IBUPROFEN 400 MG TAB ONE (15:57)
[2023-08-29] MEDS: IBUPROFEN 600 MG TAB PO ONE (16:00)
[2023-08-29] MEDS: ALPRAZOLAM 0.25 MG TABLET PO PRN (23:51)
[2023-08-30] MEDS: cloNIDine HCL 0.1 MG TAB PO ONE (05:17)
[2023-08-30] MEDS: GUAIFENESIN/DM 5 ML UCUP PO PRN (05:18)
--- NOTE | 2023-08-30 07:28 | DS ---
Date of Discharge: 08/30/2023 History: The patient was seen this morning for followup. No new complaints or problems reported. Physical Examination: Vital Signs: Reviewed. HEENT: Unremarkable. Lungs: Clear to auscultation. Heart: Sounds normal. Abdomen: Soft. Bowel sounds normal. No guarding, rigidity, tenderness, distention. Extremities: No leg edema. Laboratory Data: Upon admission, sodium 135, potassium 4.3, chloride 106, bicarb 23, BUN 29, creatin ine 1.30, glucose 223. White count 7.50, hemoglobin 10.2, platelets 191. Urinalysis, negative for b acteria and wbc, negative for leukocytes. COVID-19 test was positive. Chest x-ray did not show any acute intrathoracic changes. CAT scan of the chest, abdomen, pelvis was negative for any acute sanchez es. Discharge Medications And Instructions: 1.Continue all prior home medications. 2.Take paxlovid 2 tablets 2 times a day to finish the course. 3.Follow up at my office per her scheduled appointment. Hospital Course: This is an 82-year-old very pleasant female patient, who was admitted to the [facility] after she came into emergency room with complaints of fever. Please see dictated H and P for more information. After the patient was evaluated in the ER, she was admitted to the hospital with COVID -19 infection and generalized weakness and debility. Normally at home, she is able to ambulate using walker, but she does need some assistance when she gets up from the bed and her helps her. Yesterday, she was weaker than normal, so decision was made to keep her in the hospital overnight bec ause the patient and her did not feel comfortable going home. This morning, the patient feel s better and she feels comfortable going home as her weakness problem has improved. Chest x-ray did not show any COVID pneumonia. Hemodynamically, she is stable and no evidence of any hypoxia, so the patient will be discharged to go home. Her paxlovid was started. She qualifies for renal dose which is 2 tablets 2 times a day. This was started yesterday and we will send her home with the remaining supply to finish the course of treatment for a total of 5 days. Final Diagnoses: 1.COVID-19 infection. 2.Generalized weakness. 3.Debility. 4.Osteoarthritis, multiple sites. 5.Coronary artery disease. 6.Anemia, chronic, unspecified. 7.Hypertension. 8.Hyperlipidemia. 9.Type 2 diabetes mellitus. 10.Carotid artery stenosis, bilateral. 11.Diverticulosis. 12.Gastroesophageal reflux disease. MORIAH/MODL Voice ID: [id number] Report ID: [id number]
[2023-08-30] MEDS: carvediloL 12.5 MG TAB PO SCH (08:37)
[2023-08-30] MEDS: ENOXAPARIN 40 MG/0.4 ML SQ SCH (08:37)
[2023-08-30] MEDS: VALSARTAN 160 MG TAB PO SCH (08:37)
[2023-08-30] MEDS: CLOPIDOGREL 75 MG TABLET PO SCH (08:38)
[2023-08-30 09:42] VITALS: BP 187/77; TEMP 97.5
[2023-08-30] MEDS ORDERED: ASPIRIN 81 MG CHEWABLE TABLET PO SCH (21:00)
--- NOTE | 2023-08-31 17:33 | EKG ---
Test Date: 2023-08-28 Test Time: 20:48:19 Manufacturing Engineering Director: AYESHA MEASUREMENT RESULTS: Intervals: Rate: 57 CA: 178 QRSD: 76 QT: 476 QTc: 463 [place]: P: 67 CA: 178 QRS: 53 T: 48 INTERPRETIVE STATEMENTS: Sinus bradycardia with premature atrial complexes Otherwise normal ECG Compared to ECG 05/04/2023 21:49:54 Atrial premature complex(es) now present Sinus rhythm no longer present Electronically Signed On 08-31-23 17:24:57 CDT by Brett Samson
== END 2023-08-30 09:52 | disposition home or self-care (01) ==
LOC: SUPCPDRO 20:10 → ER 20:10 → ERHOLD 22:35 → 4TH 08-29 19:53
PROVIDERS: ADMIT Internal Medicine; ATTEND Internal Medicine
DX: U07.1 COVID-19 (principal); E11.9 Type 2 diabetes mellitus without complications; E21.3 Hyperparathyroidism, unspecified; I10 Essential (primary) hypertension; I25.10 Atherosclerotic heart disease of native coronary artery without angina pectoris; I65.29 Occlusion and stenosis of unspecified carotid artery; M19.90 Unspecified osteoarthritis, unspecified site; K21.9 Gastro-esophageal reflux disease without esophagitis; K57.90 Diverticulosis of intestine, part unspecified, without perforation or abscess without bleeding; E55.9 Vitamin D deficiency, unspecified; R53.1 Weakness; R53.81 Other malaise; D64.9 Anemia, unspecified; E78.5 Hyperlipidemia, unspecified
CPT/HCPCS: 93005; 87040 ×2; 85025; 81001; 36415; 85610; 82947 ×4; 83605; 85730; 84443; 80053; 84145; 86140; 87804 ×2; 71250; 74176; 71045; 51702; 99285; 87811; J1815 ×4; Q0169; J0612; J2543; J7613; J1650 ×2; J2405; J8499 ×3; J7040; J7030 ×3; G0378 ×4

== ENCOUNTER 2023-10-12 11:41 | Emergency (ER) | payer OTHER ==
[2023-10-12] MEDS ORDERED: NA CHLORIDE 0.9% 500 ML ONE ×2 (12:08→13:19)
[2023-10-12 12:35] LABS: Absolute Basophils 0.1 K/uL (0-0.5); Absolute Eosinophils 0.1 K/uL (0-0.5); Absolute Lymphocytes (CBC) 1.2 K/uL (0.7-4.9); Absolute Monocytes 0.8 K/uL (0.1-1.3); Basophils % 0.6 % (0-1.3); Eosinophils % 1.5 % (0-4.4); Hematocrit 34.9 % (36.0-45.0); Hemoglobin 11.4 g/dL (12.0-15.0); Lymphocytes % 14.3 % (15.3-44.8); MCH 27.9 pg (27.0-35.0); MCHC 32.6 g/dL (32.0-36.0); MCV 85.7 fL (80-100); MPV 9.1 fL (7.6-11.3); Monocytes % 9.5 % (3.3-12.3); Neutrophils % 74.1 % (41.7-73.7); Platelets 289 thou/uL (152-406); RBC Red Blood Cell Count 4.07 M/uL (3.86-4.86); Red Cell Distribution Width 14.9 % (12.1-15.2)
--- NOTE | 2023-10-12 12:36 | RAD REPORT ---
EXAM DESCRIPTION: RAD - Chest Single View - 10/12/2023 12:30 pm CLINICAL HISTORY: weakness Chest pain. COMPARISON: Chest Single View dated 08/28/2023; Abdomen 1 View (KUB) dated 05/06/2023; Abdomen 1 View (KUB) dated 05/06/2023; Chest Single View dated 05/04/2023 FINDINGS: Portable technique limits examination quality. The lungs are grossly clear. The heart is normal in size. Bilateral shoulder hardware is noted. Cervi montse hardware plate. IMPRESSION: No acute intrathoracic process suspected.
[2023-10-12 12:48] LABS: Specific Gravity 1.015 (1.005-1.030); Sqamous Epithelial <5 /HPF (None Seen); Urine Bacteria None Seen /HPF (<20); Urine Bilirubin NEGATIVE (Negative); Urine Blood Negative (Negative); Urine Clarity Turbid (Clear); Urine Color Light-Yellow (Yellow); Urine Culture Reflex Order NOT NEEDED; Urine Glucose NEGATIVE (Negative); Urine Ketones NEGATIVE (Negative); Urine Micro Reflex YN NO BILL MICROSCOPIC; Urine Mucus Slight /HPF (None Seen); Urine Nitrite NEGATIVE (Negative); Urine Protein 2+ (Negative); Urine RBC <5 /HPF (None Seen); Urine Urobilinogen Normal (Normal); Urine WBC <5 /HPF (<5); Urine pH 5.5 (5.0-7.0)
[2023-10-12 12:55] LABS: Albumin 2.7 g/dL (3.4-5.0); Albumin/Globulin Ratio 0.8 (1.1-1.8); Anion Gap 11.1 mEq/L (5.0-15.0); Bilirubin Direct 0.1 mg/dL (0-0.2); Bilirubin Indirect, Calculated 0.3 mg/dL (0.2-0.8); Bilirubin Total 0.4 mg/dL (0.2-1.0); Globulin 3.3 g/dL (2.3-3.5); Magnesium 2.2 mg/dL (1.6-2.4); Potassium 4.1 mEq/L (3.5-5.1); Troponin High Sensitivity 12.5 pg/mL (<58.9)
--- NOTE | 2023-10-12 14:34 | ER ---
Nurse's Notes [facility] Name: Kate Love Age: 82 yrs Sex: Female : 1940 Arrival Date: 10/12/2023 Time: 11:41 Bed 16 Private MD: Diagnosis: Dehydration Presentation: 10/11 11:49 Chief complaint: EMS states: they were toned out for general weakness, dizziness, and kc6 left lower back pain. pt was hypotensive at 70/50 for EMS. 15mg of IV toradol given en route. Coronavirus screen: At this time, the client does not indicate any symptoms associated with coronavirus-19. Ebola Screen: No symptoms or risks identified at this time. Initial Sepsis Screen: Does the patient meet any 2 criteria? No. Patient's initial sepsis screen is negative. Does the patient have a suspected source of infection? No. Patient's initial sepsis screen is negative. Risk Assessment: Do you want to hurt yourself or someone else? Patient reports no desire to harm self or others. Onset of symptoms was October 12, 2023. 11:49 Method Of Arrival: EMS: [facility] kc6 11:49 Acuity: AURELIA 3 kc6 Triage Assessment: 11:51 General: Appears in no apparent distress. comfortable, well groomed, well developed, kc6 Behavior is calm, cooperative, appropriate for age. Pain: Complains of pain in left low back. EENT: No signs and/or symptoms were reported regarding the EENT system. Neuro: Level of Consciousness is awake, alert, obeys commands, Oriented to person, place, time, situation, Appropriate for age Reports dizziness, weakness. Cardiovascular: Capillary refill < 3 seconds. Respiratory: Airway is patent Trachea midline Respiratory effort is even, unlabored, Respiratory pattern is regular, symmetrical. GI: No signs and/or symptoms were reported involving the gastrointestinal system. : No signs and/or symptoms were reported regarding the genitourinary system. Derm: No signs and/or symptoms reported regarding the dermatologic system. Skin is intact, is healthy with good turgor, Skin is dry, Skin is pale, Skin temperature is warm. Musculoskeletal: No signs and/or symptoms reported regarding the musculoskeletal system. Circulation, motion, and sensation intact. Capillary refill < 3 seconds, Range of motion: intact in all extremities. Historical: - Allergies: 11:51 Lyrica; kc6 - PMHx: 11:51 Asthma; cardiac stent x2; Diabetes - IDDM; Hyperlipidemia; Hypertension; Myocardial kc6 infarction; perforated rectum; Transient cerebral ischemia; - PSHx: 11:51 Cholecystectomy; laminectomy; right \T\ left knee; right and left shoulder; kc6 - Immunization history:: Adult Immunizations not up to date. - Infectious Disease History:: Denies. - Social history:: Smoking status: Patient denies any tobacco usage or history of. Screenin:52 [facility] ED Fall Risk Assessment (Adult) History of falling in the last 3 months, kc6 including since admission No falls in past 3 months (0 pts) Confusion or Disorientation No (0 pts) Intoxicated or Sedated No (0 pts) Impaired Gait Yes (1 pt) Mobility Assist Device Used Yes (1 pt) Altered Elimination No (0 pt) Score/Fall Risk Level 0 - 2 = Low Risk. Abuse screen: Denies threats or abuse. Denies injuries from another. Nutritional screening: No deficits noted. Tuberculosis screening: No symptoms or risk factors identified. Assessment: 11:53 Reassessment: please see triage. kc6 12:46 Reassessment: Patient appears in no apparent distress at this time. No changes from [facility] previously documented assessment. Patient and/or family updated on plan of care and expected duration. Pain level reassessed. Patient is alert, oriented x 3, equal unlabored respirations, skin warm/dry/pink. 13:38 Reassessment: Patient appears in no apparent distress at this time. No changes from [facility] previously documented assessment. Patient and/or family updated on plan of care and expected duration. Pain level reassessed. Patient is alert, oriented x 3, equal unlabored respirations, skin warm/dry/pink. 14:38 Reassessment: Patient appears in no apparent distress at this time. No changes from [facility] previously documented assessment. Patient and/or family updated on plan of care and expected duration. Pain level reassessed. Patient is alert, oriented x 3, equal unlabored respirations, skin warm/dry/pink. Vital Signs: 11:49 BP 134 / 66; Pulse 56; Resp 16 S; Pulse Ox 91% on R/A; Weight 61.23 kg (R); Height 5 kc6 ft. 5 in. (R); 12:46 BP 176 / 59; Pulse 54; Resp 15 S; Pulse Ox 97% on R/A; kc6 13:38 BP 199 / 64; Pulse 60; Resp 19 S; Pulse Ox 96% on R/A; kc6 14:59 BP 161 / 61; Pulse 57; Resp 18 S; Pulse Ox 97% on R/A; kc6 11:49 Body Mass Index 22.46 (61.23 kg, 165.1 cm) kc6 ED Course: 11:48 Patient arrived in ED. eb 11:49 Darlin Van, RN is Primary Nurse. kc6 11:51 Triage completed. kc6 11:51 Arm band placed on. kc6 11:52 Maintain EMS IV. Dressing intact. Good blood return noted. Site clean \T\ dry. Gauge \T\ kartik 6 site: 20G RFA. 11:53 Patient has correct armband on for positive identification. Placed in gown. Bed in low kc6 position. Call light in reach. Side rails up X2. Adult w/ patient. Client placed on continuous cardiac and pulse oximetry monitoring. NIBP monitoring applied. Warm blanket given. 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 Pulse ox on. NIBP on. hb 11:57 Miguelito Schuler MD is Attending Physician. rt 12:13 EKG done, by ED staff, reviewed by Miguelito Schuler MD. hb 12:32 XRAY Chest (1 view) In Process Unspecified. EDMS 12:36 Straight cath inserted, using sterile technique, 16 Fr. Specimen obtained. Patient jg11 tolerated well. 12:37 Cleaned of incontinence. jg11 14:33 Joao Paz MD is Referral Physician. rt 15:00 No provider procedures requiring assistance completed. IV discontinued, intact, kc6 bleeding controlled, No redness/swelling at site. Pressure dressing applied. Administered Medications: 12:45 Drug: NS 0.9% IV 500 ml IV at bolus continuous Route: IV; Rate: bolus; Site: right kc6 forearm; 13:39 Follow up: Response: No adverse reaction; IV Status: Completed infusion; IV Intake: kc6 500ml 13:29 Drug: NS 0.9% IV 500 ml IV at bolus once Route: IV; Rate: bolus; Site: right forearm; kc6 14:09 Follow up: Response: No adverse reaction; IV Status: Completed infusion; IV Intake: kc6 500ml Medication: 15:00 VIS not applicable for this client. kc6 Intake: 13:39 IV: 500ml; Total: 500ml. kc6 14:09 IV: 500ml; Total: 1000ml. kc6 Outcome: 14:34 Discharge ordered by . rt 15:00 Discharged to home via wheelchair, with significant other, kc6 15:00 Condition: improved 15:00 Discharge instructions given to patient, significant other, Instructed on discharge instructions, follow up and referral plans. Demonstrated understanding of instructions, follow-up care, 15:00 Patient left the ED. kc6 Signatures: Dispatcher [employer] EDMS Charmaine Thornton RN RN hb Botello, Elizabeth eb Campbell, Kaitlyn, RN RN kc6 Miguelito Schuler MD MD rt Gonzalez, Jordan jg11
--- NOTE | 2023-10-12 14:34 | EDPHYS ---
Physician Documentation [facility] Name: Kate Love Age: 82 yrs Sex: Female : 1940 Arrival Date: 10/12/2023 Time: 11:41 Bed 16 Private MD: ED Physician Miguelito Schuler Historical: - Allergies: 10/11 11:51 Lyrica; kc6 - PMHx: 11:51 Asthma; cardiac stent x2; Diabetes - IDDM; Hyperlipidemia; Hypertension; Myocardial kc6 infarction; perforated rectum; Transient cerebral ischemia; - PSHx: 11:51 Cholecystectomy; laminectomy; right \T\ left knee; right and left shoulder; kc6 - Immunization history:: Adult Immunizations not up to date. - Infectious Disease History:: Denies. - Social history:: Smoking status: Patient denies any tobacco usage or history of. Vital Signs: 11:49 BP 134 / 66; Pulse 56; Resp 16 S; Pulse Ox 91% on R/A; Weight 61.23 kg (R); Height 5 kc6 ft. 5 in. (R); 12:46 BP 176 / 59; Pulse 54; Resp 15 S; Pulse Ox 97% on R/A; kc6 13:38 BP 199 / 64; Pulse 60; Resp 19 S; Pulse Ox 96% on R/A; kc6 14:59 BP 161 / 61; Pulse 57; Resp 18 S; Pulse Ox 97% on R/A; kc6 11:49 Body Mass Index 22.46 (61.23 kg, 165.1 cm) kc6 MDM: 11:58 Patient medically screened. rt 10/11 12:05 Order name: Basic Metabolic Panel; Complete Time: 12:59 rt 10/11 12:05 Order name: CBC with Diff; Complete Time: 12:59 rt 10/11 12:05 Order name: LFT's; Complete Time: 12:59 rt 10/11 12:05 Order name: Magnesium; Complete Time: 12:59 rt 10/11 12:05 Order name: Troponin HS; Complete Time: 12:59 rt 10/11 12:05 Order name: UAM; Complete Time: 12:59 rt 10/11 12:05 Order name: XRAY Chest (1 view); Complete Time: 12:41 rt 10/11 12:05 Order name: EKG; Complete Time: 12:05 rt 10/11 12:05 Order name: Cardiac monitoring; Complete Time: 12:37 rt 10/11 12:05 Order name: EKG - Nurse/Tech; Complete Time: 12:37 rt 10/11 12:05 Order name: IV Saline Lock; Complete Time: 12:06 rt 10/11 12:05 Order name: Labs collected and sent; Complete Time: 12:45 rt 10/11 12:05 Order name: O2 Per Protocol; Complete Time: 12:06 rt 10/11 12:05 Order name: O2 Sat Monitoring; Complete Time: 12:06 rt Administered Medications: 12:45 Drug: NS 0.9% IV 500 ml IV at bolus continuous Route: IV; Rate: bolus; Site: right kc6 forearm; 13:39 Follow up: Response: No adverse reaction; IV Status: Completed infusion; IV Intake: kc6 500ml 13:29 Drug: NS 0.9% IV 500 ml IV at bolus once Route: IV; Rate: bolus; Site: right forearm; kc6 14:09 Follow up: Response: No adverse reaction; IV Status: Completed infusion; IV Intake: kc6 500ml Disposition Summary: 10/12/23 14:34 Discharge Ordered Notes: Location: Home rt Problem: new rt Symptoms: have improved rt Condition: Stable rt Diagnosis - Dehydration rt Followup: rt - With: Joao Paz MD - When: 10/15/2023 - Reason: Discharge Instructions: - Discharge Summary Sheet rt - Dehydration, Adult rt Forms: - Medication Reconciliation Form rt - Antibiotic Education rt - Prescription Opioid Use rt - Patient Portal Instructions rt - Leadership Thank You Letter rt Signatures: Dispatcher [employer] Darlin Douglas RN RN kc6 Miguelito Schuler MD MD rt Corrections: (The following items were deleted from the chart) 12:06 12:05 BASIC METABOLIC PANEL+C.LAB.BRZ ordered. EDMS EDMS 12:06 12:05 CBC+H.LAB.BRZ ordered. EDMS EDMS 12:06 12:05 HEPATIC FUNCTION+C.LAB.BRZ ordered. EDMS EDMS 12:06 12:05 MAGNESIUM+C.LAB.BRZ ordered. EDMS EDMS 12:06 12:05 Troponin High Sensitivity+C.LAB.BRZ ordered. EDMS EDMS 12:06 12:05 Urinalysis W/Microscopic+U.LAB.BRZ ordered. EDMS EDMS
[2023-10-12 15:50] VITALS: BP 161/61; O2SAT 97
--- NOTE | 2023-10-15 13:05 | EKG ---
Test Date: 2023-10-12 Test Time: 12:13:39 Livestock Dealer: CHARLES MEASUREMENT RESULTS: Intervals: Rate: 54 DE: 186 QRSD: 96 QT: 474 QTc: 449 Rutledge: P: 31 DE: 186 QRS: 62 T: 49 INTERPRETIVE STATEMENTS: Sinus bradycardia Nonspecific T wave abnormality Abnormal ECG Compared to ECG 08/28/2023 20:48:19 T-wave abnormality now present Atrial premature complex(es) no longer present Electronically Signed On 10-15-23 12:57:38 CDT by Brett Samson
== END 2023-10-12 15:00 | disposition home or self-care (01) ==
LOC: ER 11:41
DX: E86.0 Dehydration (principal); I10 Essential (primary) hypertension; Z88.8 Allergy status to other drugs, medicaments and biological substances; Z95.818 Presence of other cardiac implants and grafts
CPT/HCPCS: 93005; 85025; 81001; 80048; 36415; 83735; 80076; 84484; 71045; J7040 ×2

== ENCOUNTER 2023-12-14 19:33 | Emergency (ER) | payer OTHER ==
[2023-12-14] MEDS ORDERED: ONDANSETRON 4 MG/2 ML VIAL ONE (20:29)
[2023-12-14] MEDS ORDERED: CEFTRIAXONE 1000 MG/VIAL ONE (20:29)
[2023-12-14] MEDS ORDERED: FENTANYL CITR 100 MCG/2 ML ONE (20:30)
[2023-12-14 20:31] LABS: Absolute Lymphocytes (CBC) 0.7 K/uL (0.7-4.9); Absolute Monocytes 1.2 K/uL (0.1-1.3); Absolute Neutrophil 8.6 K/uL (1.8-8.0); Basophils % 0.4 % (0-1.3); Eosinophils % 0.2 % (0-4.4); Hematocrit 37.6 % (36.0-45.0); Hemoglobin 12.5 g/dL (12.0-15.0); Lymphocytes % 6.5 % (15.3-44.8); MCH 29.1 pg (27.0-35.0); MCHC 33.1 g/dL (32.0-36.0); MPV 8.6 fL (7.6-11.3); Monocytes % 11.5 % (3.3-12.3); Neutrophils % 81.4 % (41.7-73.7); Nucleated Red Blood Cells % 0.1 % (0-0); Platelets 278 thou/uL (152-406); RBC Red Blood Cell Count 4.28 M/uL (3.86-4.86); Red Cell Distribution Width 16.6 % (12.1-15.2)
[2023-12-14] MEDS ORDERED: NA CHLORIDE 0.9% 100 ML ONE (20:31)
[2023-12-14] MEDS ORDERED: NA CHLORIDE 0.9% 1,000 ML ONE (20:31)
[2023-12-14 20:38] LABS: PT Prothrombin Time 13.4 SECONDS (9.4-12.5); Protime INR 1.23
[2023-12-14 20:55] LABS: Albumin 2.5 g/dL (3.4-5.0); Albumin/Globulin Ratio 0.7 (1.1-1.8); Anion Gap 8.5 mEq/L (5.0-15.0); Bilirubin Direct 0.2 mg/dL (0-0.2); Bilirubin Indirect, Calculated 0.3 mg/dL (0.2-0.8); Bilirubin Total 0.5 mg/dL (0.2-1.0); Globulin 3.5 g/dL (2.3-3.5); Magnesium 1.8 mg/dL (1.6-2.4); Potassium 4.5 mEq/L (3.5-5.1); Troponin High Sensitivity 21.7 pg/mL (<58.9)
--- NOTE | 2023-12-14 21:28 | RAD REPORT ---
EXAM DESCRIPTION: CT - Head C Spine Cap Wo Con - 12/14/2023 8:56 pm CLINICAL HISTORY: Head and neck pain. Chest and abdominal pain status TECHNIQUE: Computed axial tomography of head, neck, chest, abdomen and pelvis obtained. IV and oral contrast not requested. Coronal and sagittal reconstruction performed. All CT scans are performed using dose optimization technique as appropriate and may include automated exposure control or mA/KV adjustment according to patient size. COMPARISON: CT abdomen November 23, 2023 CT head and cervical spine 2022 FINDINGS: An intracranial bleed is not seen. 3 centimeter low-density area has developed right occipital lobe. The ventricles are normal in caliber. An extra-axial fluid collection is not noted. Moderate ethmoid sinusitis A cervical fracture is not seen. No dislocation is noted. Anterior fusion C4 through C6 The evaluation of mediastinum, elizabeth, vessels, solid organs and bowel are limited secondary to the lac k of contrast administration. A mediastinal hematoma is not noted. A pleural effusion is not seen. A lung contusion is not present. Mild left upper lobe opacities. Coronary arterial calcifications The liver,spleen, pancreas, adrenals, left kidney and bladder appear grossly normal. Marked right hydronephrosis has progressed since the prior exam. The proximal right ureter is dilated to the level of the iliac crest in which it is compressed by the gonadal vein No adnexal mass. No evidence of diverticulitis. Postsurgical changes lumbar spine. Spondylosis. Cholecystectomy Left shoulder arthroplasty IMPRESSION: 3 centimeter low-density area which has developed within right occipital lobe has the appearance of a late subacute infarction A cervical fracture is not visualized. If the patient continues to have symptoms to suggest intracran ial/spinal cord pathology MRI be recommended Marked right hydronephrosis which has progressed since the prior exam. The proximal right ureter is d ilated to the level of the iliac crest which is compressed by gonadal vein Mild left upper lobe opacities may indicate mild pneumonitis
--- NOTE | 2023-12-14 21:34 | RAD REPORT ---
EXAM DESCRIPTION: Rosey Single View12/14/2023 9:22 pm CLINICAL HISTORY: Abdominal pain COMPARISON: November 23, 2023 FINDINGS: The lungs appear clear of acute infiltrate. The heart is normal size IMPRESSION: No acute abnormalities displayed
[2023-12-14 22:25] LABS: Specific Gravity 1.016 (1.005-1.030); Sqamous Epithelial None Seen /HPF (None Seen); Urine Bacteria 20-50 /HPF (<20); Urine Bilirubin NEGATIVE (Negative); Urine Blood 3+ (OVER) (Negative); Urine Clarity Extremely Turbid (Clear); Urine Color Dark-Brown (Yellow); Urine Culture Reflex Order REFLEXED; Urine Glucose NEGATIVE (Negative); Urine Ketones NEGATIVE (Negative); Urine Microscopic Reflex YN ORDER UMIC; Urine Nitrite 1+ (Negative); Urine Protein 3+ (Negative); Urine RBC >50 /HPF (None Seen); Urine Urobilinogen Normal (Normal); Urine WBC >50 /HPF (<5); Urine WBC Clump Many /HPF (None Seen); Urine pH 6.5 (5.0-7.0)
--- NOTE | 2023-12-14 22:53 | ER ---
Nurse's Notes [facility] Name: Kate Love Age: 83 yrs Sex: Female : 1940 Arrival Date: 12/14/2023 Time: 19:33 Bed 4 Private MD: Diagnosis: Hydronephrosis with ureteral stricture, not elsewhere classified;Pneumonia due to other specified bacteria-left upper lobe;UTI/ Urinary tract infection, site not specified;Pyelonephritis acute Presentation: 12/13 19:43 Chief complaint: Patient states: that her pain in the right legs is getting worse. rg5 Coronavirus screen: Client denies travel out of the [place] in the last 14 days. Ebola Screen: Patient negative for fever greater than or equal to 101.5 degrees Fahrenheit, and additional compatible Ebola Virus Disease symptoms. Initial Sepsis Screen: Does the patient meet any 2 criteria? No. Patient's initial sepsis screen is negative. Initial Sepsis Screen: Does the patient have a suspected source of infection? No. Patient's initial sepsis screen is negative. Risk Assessment: Do you want to hurt yourself or someone else? Patient reports no desire to harm self or others. Onset of symptoms was December 14, 2023. 19:43 Method Of Arrival: EMS: [facility] 19:43 Acuity: AURELIA 3 rg5 Triage Assessment: 19:58 General: Appears uncomfortable, Behavior is cooperative, appropriate for age, restless. rg5 Pain: Complains of pain in right leg Pain radiates to right hip Pain currently is 10 out of 10 on a pain scale. Quality of pain is described as aching, Pain began 1 hour ago. EENT: No deficits noted. Neuro: Oriented to person, place, time, situation, Reports numbness in right leg. Cardiovascular: Capillary refill < 3 seconds. Respiratory: Airway is patent Breath sounds are clear bilaterally. GI: Abdomen is round non-distended. : Reports incontinence, urinary frequency. Derm: Skin is intact, Skin is dry, Skin is pink, warm \T\ dry. Skin temperature is warm. Musculoskeletal: Range of motion: intact in all extremities. Historical: - Allergies: 19:46 No Known Allergies; rg5 - Home Meds: 19:46 aspirin 81 mg Oral TbEC 1 tab once daily [Active]; hydrocodone-acetaminophen 7.5-325 mg rg5 Oral tablet [Active]; carvedilol 25 mg Oral tablet 1 tab 2 times per day [Active]; Novolog U-100 Insulin aspart 100 unit/mL Sub-Q solution Use as Directed [Active]; clonidine HCl 0.1 mg Oral tablet 1 tab 3 times per day for Hypertension [Active]; clopidogrel 75 mg Oral tablet 1 tab daily [Active]; biotin 5 Oral tablet 1 tabs daily [Active]; ezetimibe 10 mg Oral tab 1 tab daily [Active]; CoQ-10 100 mg Oral capsule 2 caps daily [Active]; - PMHx: 19:46 Asthma; cardiac stent x2; perforated rectum; Myocardial infarction; Hypertension; rg5 Transient cerebral ischemia; Hyperlipidemia; - PSHx: 19:46 laminectomy; right \T\ left knee; right and left shoulder; Stented artery; rg5 Cholecystectomy; - Infectious Disease History:: Denies. - Social history:: Patient/guardian denies using Smoking status: Smoking status: Patient denies any tobacco usage or history of. - Family history:: not pertinent. Screenin:06 [facility] ED Fall Risk Assessment (Adult) History of falling in the last 3 months, rg5 including since admission No falls in past 3 months (0 pts) Confusion or Disorientation No (0 pts) Intoxicated or Sedated No (0 pts) Impaired Gait Yes (1 pt) Mobility Assist Device Used Yes (1 pt) Altered Elimination No (0 pt) Score/Fall Risk Level 0 - 2 = Low Risk. Abuse screen: Denies threats or abuse. Nutritional screening: No deficits noted. Tuberculosis screening: No symptoms or risk factors identified. Assessment: 19:30 Reassessment: Patient and/or family updated on plan of care and expected duration. Pain rg5 level reassessed. Patient is alert, oriented x 3, equal unlabored respirations, skin warm/dry/pink. Patient states feeling better. 23:18 Reassessment: Patient is alert, oriented x 3, equal unlabored respirations, skin rg5 warm/dry/pink. 23:18 General: Appears. General: Appears comfortable, Behavior is calm, cooperative. Pain: rg5 Complains of pain in right leg Pain radiates to right leg Pain currently is 7 out of 10 on a pain scale. Neuro: Oriented to person, place, time. Neuro: Level of Consciousness is awake, alert, obeys commands. Cardiovascular: Denies chest pain, shortness of breath, Capillary refill < 3 seconds Patient's skin is warm and dry. Respiratory: Airway is patent Respiratory effort is even, unlabored, Respiratory pattern is regular, symmetrical. Musculoskeletal: Range of motion: intact in all extremities, complaint on right hip radiating down to her leg. 12/14 00:48 Reassessment: Patient is alert, oriented x 3, equal unlabored respirations, skin rg5 warm/dry/pink. Patient states symptoms have improved. 02:11 Reassessment: report given to saloni SCHNEIDER in [facility]. rg5 02:36 Reassessment: Patient and/or family updated on plan of care and expected duration. Pain rg5 level reassessed. Patient is alert, oriented x 3, equal unlabored respirations, skin warm/dry/pink. Vital Signs: 12/13 19:43 BP 130 / 70; Pulse 77; Resp 19; Temp 99.1; Pulse Ox 98% on R/A; Weight 59.42 kg; Height rg5 5 ft. 5 in. ; Pain 10/10; 19:46 BP 130 / 70; Pulse 77; Resp 19; Temp 99.1; Pulse Ox 98% ; Pain 10/10; rg5 20:56 BP 144 / 58; Pulse 69; Resp 19; Temp 98; Pulse Ox 100% on R/A; Pain 5/10; rg5 21:25 BP 114 / 57; Pulse 70; Resp 18; Pulse Ox 96% ; Pain 4/10; rg5 23:03 BP 111 / 48; Pulse 65; Resp 18; Pulse Ox 95% on R/A; pc2 12/14 02:36 BP 141 / 87; Pulse 61; Resp 18; Temp 98; Pulse Ox 96% ; Pain 0/10; rg5 12/13 19:43 Body Mass Index 21.80 (59.42 kg, 165.1 cm) rg5 12/13 19:43 Pain Scale: Adult rg5 19:46 Pain Scale: Adult rg5 20:56 Pain Scale: Adult rg5 21:25 Pain Scale: Adult rg5 12/14 02:36 Pain Scale: Adult rg5 Raphael Coma Score: 12/13 20:06 Eye Response: spontaneous(4). Motor Response: obeys commands(6). Verbal Response: rg5 oriented(5). Total: 15. ED Course: 19:37 Patient arrived in ED. jj6 19:42 Danny Reynolds, RN is Primary Nurse. rg5 19:46 Triage completed. rg5 19:46 Arm band placed on right wrist. Patient placed on oxygen, on monitor and storage bin tender. EKG rg5 completed in triage. Results shown to MD. 20:01 Inserted saline lock: 22 gauge in right wrist, using aseptic technique. Blood collected.rc3 20:06 Miguel Dumont MD is Attending Physician. darline 20:06 Patient has correct armband on for positive identification. Placed in gown. Bed in low rg5 position. Call light in reach. Side rails up X 1. Adult w/ patient. 20:06 No provider procedures requiring assistance completed. rg5 20:25 Initial lab(s) drawn, by ED staff, sent to lab. First set of blood cultures drawn by bm8 me, EKG done, by ED staff, reviewed by Miguel Dumont MD. Inserted saline lock: 20 gauge in left upper arm, using aseptic technique. Blood collected. 20:41 Second set of blood cultures drawn by me. bm8 20:57 CT Traumagram (Head C Spine CAP wo con) In Process Unspecified. EDMS 21:19 Provided Education on: . rg5 21:19 IV discontinued. rg5 21:24 XRAY Chest (1 view) In Process Unspecified. EDMS 21:27 Client placed on continuous cardiac and pulse oximetry monitoring. NIBP monitoring bm8 applied. clinical research monitor on. Pulse ox on. NIBP on. Notified ED physician of. Door closed. 21:27 Notified ED physician of a critical lab result(s). lactic acid - 2.2. rg5 21:54 Warm blanket given. Head of bed lowered. Assisted with urinal. Cleaned of incontinence. rg5 Linen changed. 22:59 initiated transfer with jayjay \Lucie\ [facility]. km 23:51 doc to doc. [facility] 12/14 00:48 Warm blanket given. rg5 03:31 pt was accepted to [facility] by Dr. Jessica Burk \T\ [id number]. Pt will go to bed number [id number]. [facility] Number for nurse to nurse report [phone]. Administered Medications: 12/13 21:04 Drug: Rocephin IV 1 grams IV at per protocol once; Given slow IV push per pharmacy rg5 instructions Route: IV; Rate: per protocol; Site: right wrist; 21:23 Follow up: IV Status: Completed infusion rg5 21:05 Drug: NS 0.9% IV 1000 ml IV at 1 bolus Per protocol; 1000 mL bolus Route: IV; Rate: 1 rg5 bolus; Site: right wrist; 21:05 Drug: Ondansetron IVP 4 mg IVP once; over 2 minutes Route: IVP; Site: right wrist; rg5 21:23 Follow up: Response: No adverse reaction rg5 21:05 Drug: fentaNYL (PF) IVP 25 mcg IVP once Route: IVP; Site: right wrist; rg5 21:23 Follow up: Response: Pain is decreased rg5 23:02 Drug: levofloxacin IVPB 500 mg 100 ml IVPB once over 60 mins Volume: 100 ml; Route: pc2 IVPB; Infused Over: 60 mins; Site: right wrist; 23:35 Drug: D5-1/2 NS IV 1000 ml IV at 125 ml/hr continuous Route: IV; Rate: 125 ml/hr; Site: bm8 right hand; 12/14 00:57 Drug: NS 0.9% IV 500 ml IV at bolus once Route: IV; Rate: bolus; Site: left antecubital;rg5 Medication: 12/13 20:06 VIS not applicable for this client. rg5 Outcome: 22:53 ER care complete, transfer ordered by MD. gregorio 12/14 02:37 Transferred by ground EMS rg5 Condition: stable Demonstrated understanding of instructions, 02:38 Patient left the ED. rg5 Signatures: Dispatcher [employer] EDPR Miguel Dumont MD MD cha Jeffries, Jennifer jj6 Forrester, Kelsey Maroul [facility] Kate Solis rc3 Celso Velasquez, RN RN bm8 Danny Reynolds RN RN rg5 Melanie suarez, RN RN pc2 Corrections: (The following items were deleted from the chart) 12/13 19:52 19:46 PMHx: Diabetes - IDDM; rg5 rg5 21:29 21:19 Provided Education on: post er care. rg5 rg5 :30 21:18 Condition: stable rg5 rg5 :30 21:18 Discharged to home ambulatory, with family, 5 5 21:30 21:18 Discharge instructions given to patient, Instructed on discharge instructions, rg5 follow up and referral plans. safety practices, rg5
--- NOTE | 2023-12-14 22:53 | EDPHYS ---
Physician Documentation [facility] Name: Kate Love Age: 83 yrs Sex: Female : 1940 Arrival Date: 12/14/2023 Time: 19:33 Bed 4 Private MD: ED Physician Miguel Dumont HPI: 12/13 20:22 This 83 yrs old Female presents to ER via EMS with complaints of right lower darline quadrant pain. 20:22 The patient presents with abdominal pain in the lower abdomen. Onset: The darline symptoms/episode began/occurred 3 day(s) ago. The symptoms do not radiate. Associated signs and symptoms: Pertinent positives: nausea. The symptoms are described as crampy, sharp, steady. Modifying factors: The symptoms are alleviated by remaining still, the symptoms are aggravated by movement, pressure, touching the area. Severity of pain: At its worst the pain was moderate in the emergency department the pain is unchanged. The patient has experienced similar episodes in the past, several times. Historical: - Allergies: 19:46 No Known Allergies; rg5 - Home Meds: 19:46 aspirin 81 mg Oral TbEC 1 tab once daily [Active]; hydrocodone-acetaminophen 7.5-325 mg rg5 Oral tablet [Active]; carvedilol 25 mg Oral tablet 1 tab 2 times per day [Active]; Novolog U-100 Insulin aspart 100 unit/mL Sub-Q solution Use as Directed [Active]; clonidine HCl 0.1 mg Oral tablet 1 tab 3 times per day for Hypertension [Active]; clopidogrel 75 mg Oral tablet 1 tab daily [Active]; biotin 5 Oral tablet 1 tabs daily [Active]; ezetimibe 10 mg Oral tab 1 tab daily [Active]; CoQ-10 100 mg Oral capsule 2 caps daily [Active]; - PMHx: 19:46 Asthma; cardiac stent x2; perforated rectum; Myocardial infarction; Hypertension; rg5 Transient cerebral ischemia; Hyperlipidemia; - PSHx: 19:46 laminectomy; right \T\ left knee; right and left shoulder; Stented artery; rg5 Cholecystectomy; - Infectious Disease History:: Denies. - Social history:: Patient/guardian denies using Smoking status: Smoking status: Patient denies any tobacco usage or history of. - Family history:: not pertinent. ROS: 20:22 Constitutional: Negative for fever, chills, and weight loss, Eyes: Negative for injury, darline pain, redness, and discharge, ENT: Negative for injury, pain, and discharge, Neck: Negative for injury, pain, and swelling, Cardiovascular: Negative for chest pain, palpitations, and edema, Respiratory: Negative for shortness of breath, cough, wheezing, and pleuritic chest pain, Back: Negative for injury and pain, : Negative for injury, bleeding, discharge, and swelling, MS/Extremity: Negative for injury and deformity, Skin: Negative for injury, rash, and discoloration, Neuro: Negative for headache, weakness, numbness, tingling, and seizure, Psych: Negative for depression, anxiety, suicide ideation, homicidal ideation, and hallucinations, Allergy/Immunology: Negative for hives, rash, and allergies, Endocrine: Negative for neck swelling, polydipsia, polyuria, polyphagia, and marked weight changes, Hematologic/Lymphatic: Negative for swollen nodes, abnormal bleeding, and unusual bruising, 20:22 Abdomen/GI: Positive for abdominal pain, of the right lower quadrant, Exam: 20:25 Constitutional: This is a well developed, well nourished patient who is awake, alert, darline and in no acute distress. Head/Face: Normocephalic, atraumatic. Eyes: Pupils equal round and reactive to light, extra-ocular motions intact. Lids and lashes normal. Conjunctiva and sclera are non-icteric and not injected. Cornea within normal limits. Periorbital areas with no swelling, redness, or edema. ENT: Nares patent. No nasal discharge, no septal abnormalities noted. Tympanic membranes are normal and external auditory canals are clear. Oropharynx with no redness, swelling, or masses, exudates, or evidence of obstruction, uvula midline. Mucous membranes moist. Neck: Trachea midline, no thyromegaly or masses palpated, and no cervical lymphadenopathy. Supple, full range of motion without nuchal rigidity, or vertebral point tenderness. No Meningismus. Chest/axilla: Normal chest wall appearance and motion. Nontender with no deformity. No lesions are appreciated. Cardiovascular: Regular rate and rhythm with a normal S1 and S2. No gallops, murmurs, or rubs. Normal PMI, no JVD. No pulse deficits. Respiratory: Lungs have equal breath sounds bilaterally, clear to auscultation and percussion. No rales, rhonchi or wheezes noted. No increased work of breathing, no retractions or nasal flaring. Back: No spinal tenderness. No costovertebral tenderness. Full range of motion. Female : Normal external genitalia. Skin: Warm, dry with normal turgor. Normal color with no rashes, no lesions, and no evidence of cellulitis. MS/ Extremity: Pulses equal, no cyanosis. Neurovascular intact. Full, normal range of motion. Neuro: Awake and alert, GCS 15, oriented to person, place, time, and situation. Cranial nerves II-XII grossly intact. Motor strength 5/5 in all extremities. Sensory grossly intact. Cerebellar exam normal. Normal gait. Psych: Awake, alert, with orientation to person, place and time. Behavior, mood, and affect are within normal limits. 20:25 Abdomen/GI: Inspection: abdomen appears normal, Bowel sounds: normal, Palpation: mild abdominal tenderness, moderate abdominal tenderness, in the right lower quadrant, Liver: no appreciated palpable abnormalities, Hernia: not appreciated, 20:25 Musculoskeletal/extremity: Exam is negative for acute changes, bony tenderness, decreased range of motion, erythema, pain, pelvic instability, perfusion abnormalities, pulse abnormalities, Vital Signs: 19:43 BP 130 / 70; Pulse 77; Resp 19; Temp 99.1; Pulse Ox 98% on R/A; Weight 59.42 kg; Height rg5 5 ft. 5 in. ; Pain 10/10; 19:46 BP 130 / 70; Pulse 77; Resp 19; Temp 99.1; Pulse Ox 98% ; Pain 10/10; rg5 20:56 BP 144 / 58; Pulse 69; Resp 19; Temp 98; Pulse Ox 100% on R/A; Pain 5/10; rg5 21:25 BP 114 / 57; Pulse 70; Resp 18; Pulse Ox 96% ; Pain 4/10; rg5 23:03 BP 111 / 48; Pulse 65; Resp 18; Pulse Ox 95% on R/A; pc2 12/14 02:36 BP 141 / 87; Pulse 61; Resp 18; Temp 98; Pulse Ox 96% ; Pain 0/10; rg5 12/13 19:43 Body Mass Index 21.80 (59.42 kg, 165.1 cm) [facility] 12/13 19:43 Pain Scale: Adult rg5 19:46 Pain Scale: Adult rg5 20:56 Pain Scale: Adult rg5 21:25 Pain Scale: Adult rg5 12/14 02:36 Pain Scale: Adult rg5 Raphael Coma Score: 12/13 20:06 Eye Response: spontaneous(4). Motor Response: obeys commands(6). Verbal Response: rg5 oriented(5). Total: 15. MDM: 20:06 Patient medically screened. [facility] 20:27 Differential diagnosis: AAA, appendicitis, bowel obstruction, Cholelithiasis, darline diverticulitis, gastritis, non-specific abd pain, pancreatitis, Peptic Ulcer Disease, Pyelonephritis, Ureterolithiasis, urinary tract infection. Data reviewed: vital signs, nurses notes, lab test result(s), CBC, electrolytes, hepatic panel, urinalysis, EKG, radiologic studies, CT scan, plain films. Consideration of Admission/Observation Patient was admitted/placed on observation. Escalation of care including admission/observation considered. Test considered but Not performed: Ultrasound no abd usg. Historians other than the Patient: Spouse/Significant Other: well informed. Care significantly affected by the following chronic conditions: Hypertension, Obesity, cad, asthma, perforated rectum, tia. Counseling: I had a detailed discussion with the patient and/or guardian regarding the historical points, exam findings, and any diagnostic results supporting the discharge/admit diagnosis, lab results, radiology results, the need for further work-up and treatment in the hospital. 12/13 20:15 Order name: Basic Metabolic Panel; Complete Time: 21: [facility] 12/13 20:15 Order name: CBC with Diff; Complete Time: : [facility] 12/13 20:15 Order name: LFT's; Complete Time: : [facility] 12/13 20:15 Order name: Magnesium; Complete Time: 21: [facility] 12/13 20:15 Order name: NT PRO-BNP; Complete Time: 21: [facility] 12/13 20:15 Order name: PT-INR; Complete Time: 21: [facility] 12/13 20:15 Order name: Troponin HS; Complete Time: 21: [facility] 12/13 20:15 Order name: Lipase; Complete Time: : [facility] 12/13 20:15 Order name: Urinalysis w/ reflexes; Complete Time: 22:43 [facility] 12/13 20:15 Order name: Blood Culture Adult (2) [facility] 12/13 20:15 Order name: Lactate w/ 2H reflex if indic.; Complete Time: 21:22 [facility] 12/13 22:30 Order name: Urine Culture [facility] 12/13 23:12 Order name: Ghost Lactate-NO COLLECT Timer; Complete Time: 23:54 [facility] 12/13 23:42 Order name: Glucose, Ancillary Testing; Complete Time: 23:54 [facility] 12/14 00:10 Order name: Lactate Sepsis 2 HR Follow-up; Complete Time: 00:39 [facility] 12/14 00:24 Order name: Glucose, Ancillary Testing; Complete Time: 00:39 [facility] 12/13 20:15 Order name: XRAY Chest (1 view); Complete Time: 22:43 [facility] 12/13 20:15 Order name: CT Traumagram (Head C Spine CAP wo con); Complete Time: 22:43 [facility] 12/13 20:15 Order name: EKG; Complete Time: 20:16 [facility] 12/13 20:15 Order name: Cardiac monitoring; Complete Time: 20:47 [facility] 12/13 20:15 Order name: EKG - Nurse/Tech; Complete Time: 20:47 [facility] 12/13 20:15 Order name: IV Saline Lock; Complete Time: 20:47 [facility] 12/13 20:15 Order name: Labs collected and sent; Complete Time: 20:47 [facility] 12/13 20:15 Order name: O2 Per Protocol; Complete Time: 20:47 [facility] 12/13 20:15 Order name: O2 Sat Monitoring; Complete Time: 20:47 [facility] 12/13 21:24 Order name: Misc. Order: get ua; Complete Time: 21:54 [facility] 12/13 23:31 Order name: PO challenge: juice; Complete Time: 23:34 [facility] 12/13 23:31 Order name: Blood Glucose Level; Complete Time: 23:34 [facility] Administered Medications: 21:04 Drug: Rocephin IV 1 grams IV at per protocol once; Given slow IV push per pharmacy rg5 instructions Route: IV; Rate: per protocol; Site: right wrist; 21:23 Follow up: IV Status: Completed infusion rg5 21:05 Drug: NS 0.9% IV 1000 ml IV at 1 bolus Per protocol; 1000 mL bolus Route: IV; Rate: 1 rg5 bolus; Site: right wrist; 21:05 Drug: Ondansetron IVP 4 mg IVP once; over 2 minutes Route: IVP; Site: right wrist; rg5 21:23 Follow up: Response: No adverse reaction rg5 21:05 Drug: fentaNYL (PF) IVP 25 mcg IVP once Route: IVP; Site: right wrist; rg5 21:23 Follow up: Response: Pain is decreased rg5 23:02 Drug: levofloxacin IVPB 500 mg 100 ml IVPB once over 60 mins Volume: 100 ml; Route: pc2 IVPB; Infused Over: 60 mins; Site: right wrist; 23:35 Drug: D5-1/2 NS IV 1000 ml IV at 125 ml/hr continuous Route: IV; Rate: 125 ml/hr; Site: bm8 right hand; 12/14 00:57 Drug: NS 0.9% IV 500 ml IV at bolus once Route: IV; Rate: bolus; Site: left antecubital;rg5 Disposition Summary: 12/14/23 22:53 Transfer Ordered Notes: Transfer Location: [facility] darline Reason: Higher level of care darline Condition: Fair darline Problem: new darline Symptoms: have improved darline Accepting Physician: to [facility](12/15/23 02:38) rg5 Diagnosis - Hydronephrosis with ureteral stricture, not elsewhere classified darline - Pneumonia due to other specified bacteria - left upper lobe darline - UTI/ Urinary tract infection, site not specified darline - Pyelonephritis acute darline Forms: - Medication Reconciliation Form darline - SBAR form darline Signatures: Dispatcher [employer] Miguel Acosta MD MD cha McDonald, Brad RN RN [id number] Danny Reynolds RN RN rg5 Melanie suarez, RN RN pc2 Corrections: (The following items were deleted from the chart) 12/13 19:52 19:46 PMHx: Diabetes - IDDM; rg5 rg5 20:16 20:16 Head C Spine Cap Wo Con+CT.RAD.BRZ ordered. [facility] 12/14 02:38 12/13 22:[address] [facility] darline rg5
[2023-12-14] MEDS ORDERED: Levofloxacin500mg IV 500 MG/100 ML BAG IV ONE (23:03)
[2023-12-14] MEDS ORDERED: D5 0.45 NS 1,000 ML IV ONE (23:33)
[2023-12-15] MEDS ORDERED: NA CHLORIDE 0.9% 500 ML ONE (00:51)
[2023-12-15 02:59] VITALS: BP 141/87; TEMP 98; O2SAT 96
== END 2023-12-15 02:38 | disposition short-term general hospital (02) ==
LOC: ER 19:33
DX: N13.1 Hydronephrosis with ureteral stricture, not elsewhere classified (principal); N39.0 Urinary tract infection, site not specified; N10 Acute pyelonephritis; J15.8 Pneumonia due to other specified bacteria; Z95.818 Presence of other cardiac implants and grafts
CPT/HCPCS: 87040 ×2; 87088; 85025; 81001; 87086; 80048; 36415; 83735; 85610; 82947 ×2; 80076; 83605 ×2; 84484; 83690; 83880; 70450; 71250; 72125; 71045; J3010; J2405; J7799; J7040; J7030; J0696; 87077; 87186; 96365; 96375; 99285

== ENCOUNTER 2023-12-31 11:40 | Observation (INO) | payer OTHER ==
[2023-12-31 12:22] LABS: Absolute Basophils 0.1 K/uL (0-0.5); Absolute Eosinophils 0.1 K/uL (0-0.5); Absolute Lymphocytes (CBC) 0.8 K/uL (0.7-4.9); Absolute Monocytes 0.5 K/uL (0.1-1.3); Absolute Neutrophil 6.5 K/uL (1.8-8.0); Eosinophils % 1.8 % (0-4.4); Hematocrit 41.1 % (36.0-45.0); Hemoglobin 13.2 g/dL (12.0-15.0); Lymphocytes % 10.5 % (15.3-44.8); MCH 28.3 pg (27.0-35.0); MCV 88.5 fL (80-100); MPV 8.8 fL (7.6-11.3); Monocytes % 6.1 % (3.3-12.3); Neutrophils % 80.6 % (41.7-73.7); Platelets 417 thou/uL (152-406); RBC Red Blood Cell Count 4.64 M/uL (3.86-4.86); Red Cell Distribution Width 15.7 % (12.1-15.2)
[2023-12-31 13:02] LABS: Specific Gravity 1.008 (1.005-1.030); Sqamous Epithelial None Seen /HPF (None Seen); Urine Bacteria None Seen /HPF (<20); Urine Bilirubin NEGATIVE (Negative); Urine Blood Negative (Negative); Urine Clarity Clear (Clear); Urine Color Colorless (Yellow); Urine Culture Reflex Order NOT NEEDED; Urine Glucose NEGATIVE (Negative); Urine Ketones NEGATIVE (Negative); Urine Microscopic Reflex YN ORDER UMIC; Urine Nitrite NEGATIVE (Negative); Urine Protein 2+ (Negative); Urine RBC None Seen /HPF (None Seen); Urine Urobilinogen Normal (Normal); Urine WBC <5 /HPF (<5)
[2023-12-31] MEDS ORDERED: MORPHINE 4 MG/ML SYR ONE (13:34)
[2023-12-31] MEDS ORDERED: ONDANSETRON 4 MG/2 ML VIAL ONE (13:34)
[2023-12-31 13:39] LABS: Albumin 2.9 g/dL (3.4-5.0); Albumin/Globulin Ratio 0.9 (1.1-1.8); Bilirubin Direct 0.2 mg/dL (0-0.2); Bilirubin Indirect, Calculated 0.4 mg/dL (0.2-0.8); Bilirubin Total 0.6 mg/dL (0.2-1.0); Globulin 3.3 g/dL (2.3-3.5); Magnesium 1.9 mg/dL (1.6-2.4); Protein, Total 6.2 g/dL (6.4-8.2)
--- NOTE | 2023-12-31 14:10 | RAD REPORT ---
EXAM DESCRIPTION: CT - Chest For Pe Angio - 12/31/2023 1:55 pm CLINICAL HISTORY: CHEST PAIN COMPARISON: Chest Abd Pelvis Wo Con dated 08/28/2023 TECHNIQUE: Dynamically enhanced axial 3 mm thick images of the chest were obtained during administra tion of <100> mL Isovue 370 IV contrast. Coronal and oblique reconstruction images were generated and reviewed. Exam utilizes a protocol for optimal evaluation of pulmonary arterial tree. Maximum intensity projections 3D imaging was utilized All CT scans are performed using dose optimization technique as appropriate and may include automated exposure control or mA/KV adjustment according to patient size. FINDINGS: Chest Wall: No suspicious thyroid nodules or pathologic lymphadenopathy. Lungs: Small nonspecific pulmonary nodules are present in the lingula. These are slightly more conspi cuous than on the prior exam but are similar to 08/28/2023. They are doubtful acute clinical signific ance. The is also some trace micronodularity in the medial left upper lobe that is similar. Pleura: No significant effusions or pneumothorax. Mediastinum/elizabeth: No pathologic lymphadenopathy. Pulmonary arteries/Aorta: No filling defect identified. No aortic aneurysm. Heart: Small pericardial effusion. Mild cardiomegaly. Coronary calcifications. Upper abdomen: No acute abnormality.Cholecystectomy. Bones: No acute abnormality. Bridging osteophytes . Plate and screw in the right shoulder. Left shoul hira arthroplasty. IMPRESSION: Negative for pulmonary embolism. No acute findings. Similar incidental findings as noted above.
--- NOTE | 2023-12-31 15:39 | ER ---
Nurse's Notes [facility] Name: Kate Love Age: 83 yrs Sex: Female : 1940 Arrival Date: 12/31/2023 Time: 11:40 Bed 14 Private MD: Diagnosis: Chest pain, unspecified;Essential (primary) hypertension Presentation: 12/30 11:48 Chief complaint: Patient states: right shoulder pain and right arm pain X 1 week after iw getting out of hospital. Coronavirus screen: At this time, the client does not indicate any symptoms associated with coronavirus-19. Ebola Screen: No symptoms or risks identified at this time. Initial Sepsis Screen: Does the patient meet any 2 criteria? No. Patient's initial sepsis screen is negative. Does the patient have a suspected source of infection? No. Patient's initial sepsis screen is negative. Risk Assessment: Do you want to hurt yourself or someone else? Patient reports no desire to harm self or others. Onset of symptoms was December 24, 2023. 11:48 Method Of Arrival: EMS: [facility] iw 11:48 Acuity: AURELIA 3 iw Historical: - PMHx: 12:31 Myocardial infarction; Hyperlipidemia; Transient cerebral ischemia; perforated rectum; iw Hypertension; cardiac stent x2; Asthma; - PSHx: 12:31 Cholecystectomy; right and left shoulder; laminectomy; Stented artery; right \T\ left iw knee; - Family history:: not pertinent. - Social history:: Smoking status: Patient denies any tobacco usage or history of. Screenin:14 [facility] ED Fall Risk Assessment (Adult) History of falling in the last 3 months, iw including since admission No falls in past 3 months (0 pts) Confusion or Disorientation No (0 pts) Intoxicated or Sedated No (0 pts) Impaired Gait No (0 pts) Mobility Assist Device Used No (0 pt) Altered Elimination No (0 pt) Score/Fall Risk Level 0 - 2 = Low Risk Oriented to surroundings, Maintained a safe environment. Abuse screen: Denies threats or abuse. Denies injuries from another. Nutritional screening: No deficits noted. Tuberculosis screening: No symptoms or risk factors identified. Assessment: 12:30 General: Appears in no apparent distress. Behavior is calm, cooperative. Pain: iw Complains of pain in right arm and back of right arm. 13:14 Reassessment: Patient appears in no apparent distress at this time. Patient and/or iw family updated on plan of care and expected duration. Pain level reassessed. Patient is alert, oriented x 3, equal unlabored respirations, skin warm/dry/pink. 14:09 Reassessment: Patient appears in no apparent distress at this time. Patient and/or iw family updated on plan of care and expected duration. Pain level reassessed. Patient is alert, oriented x 3, equal unlabored respirations, skin warm/dry/pink. 17:27 Reassessment: attempt to give courtesy call to 4th floor , no answer multiple times. iw Vital Signs: 11:57 BP 191 / 91; Pulse 78; Resp 16; Temp 98.1; Pulse Ox 97% on R/A; iw 13:13 BP 210 / 86; Pulse 73; Resp 16; Pulse Ox 95% on R/A; iw 14:09 BP 182 / 75; Pulse 74; Resp 14; Pulse Ox 93% on R/A; iw 14:47 BP 138 / 59; Pulse 70; Resp 16; Pulse Ox 96% on R/A; iw ED Course: 11:48 Patient arrived in ED. ss 11:48 Miguelito Schuler MD is Attending Physician. rt 11:49 Triage completed. iw 11:57 Dasha Teran, RN is Primary Nurse. iw 11:58 Arm band placed on. iw 12:30 Patient has correct armband on for positive identification. iw 13:09 Lab(s) recollected, by me, sent to lab. Inserted saline lock: 22 gauge in right iw antecubital area, using aseptic technique. Blood collected. 13:56 CT Chest For PE Angio In Process Unspecified. EDMS 15:38 Lupillo Lujan MD is Hospitalizing Provider. rt 17:00 Flushed left antecubital with 5 ml normal saline Patient admitted, IV remains in place. iw 17:27 No provider procedures requiring assistance completed. iw Administered Medications: 14:09 Drug: morphine IVP or IV 4 mg IVP once over 4 mins Route: IVP; Infused Over: 4 mins; iw Site: left antecubital; 16:00 Follow up: Response: No adverse reaction; Marked relief of symptoms; Pain is decreased iw 14:09 Drug: Ondansetron IVP 4 mg IVP once; over 2 minutes Route: IVP; Site: left antecubital; iw 16:00 Follow up: Response: No adverse reaction iw 15:33 Not Given (Physician Discretion): nitroglycerin0.4 mg Sublingual once; every five iw minute if needed x3 16:30 Drug: Aspirin PO 325 mg PO once Route: PO; iw 17:00 Follow up: Response: No adverse reaction iw Medication: 13:14 VIS not applicable for this client. iw Outcome: 15:38 Decision to Hospitalize by Provider. rt 17:24 Patient left the ED. iw 17:28 Admitted to Med/surg accompanied by tech, via stretcher, room 410, iw 17:28 Condition: good 17:28 Discharge instructions given to patient, family, Instructed on the need for admit, Signatures: Dispatcher [employer] Dasha Porter, JENNIE SCHNEIDER iw Lani Chaves RN RN ss Miguelito Schuler MD MD rt
--- NOTE | 2023-12-31 15:39 | EDPHYS ---
Physician Documentation [facility] Name: Kate Love Age: 83 yrs Sex: Female : 1940 Arrival Date: 12/31/2023 Time: 11:40 Bed 14 Private MD: ED Physician Miguelito Schuler HPI: 12/30 13:50 This 83 yrs old Female presents to ER via EMS with complaints of Arm Pain. rt 13:50 Patient had a recent admission to [facility] for UTI, hydronephrosis. Patient rt states that since leaving, she has had pain to her right shoulder, was told that it was from bursitis. She now states that that pain radiates to her chest. Denies other acute complaints at this time, symptoms are moderate in severity, no other aggravating or alleviating factors. EMS states that the patient was tachycardic to 140s as well as hypertensive.. Historical: - PMHx: 12:31 Myocardial infarction; Hyperlipidemia; Transient cerebral ischemia; perforated rectum; iw Hypertension; cardiac stent x2; Asthma; - PSHx: 12:31 Cholecystectomy; right and left shoulder; laminectomy; Stented artery; right \T\ left iw knee; - Family history:: not pertinent. - Social history:: Smoking status: Patient denies any tobacco usage or history of. ROS: 13:50 Constitutional: Negative for fever, chills, and weight loss, Respiratory: Negative for rt shortness of breath, cough, wheezing, and pleuritic chest pain, Abdomen/GI: Negative for abdominal pain, nausea, vomiting, diarrhea, and constipation, Skin: Negative for injury, rash, and discoloration, Neuro: Negative for headache, weakness, numbness, tingling, and seizure, 13:50 Cardiovascular: Positive for chest pain, Negative for edema, 13:50 MS/extremity: Positive for pain, Negative for injury or acute deformity, Exam: 13:50 Constitutional: This is a well developed, well nourished patient who is awake, alert, rt and in no acute distress. Head/Face: Normocephalic, atraumatic. Chest/axilla: Normal chest wall appearance and motion. Nontender with no deformity. No lesions are appreciated. Cardiovascular: Regular rate and rhythm with a normal S1 and S2. No gallops, murmurs, or rubs. Normal PMI, no JVD. No pulse deficits. Respiratory: Lungs have equal breath sounds bilaterally, clear to auscultation and percussion. No rales, rhonchi or wheezes noted. No increased work of breathing, no retractions or nasal flaring. Abdomen/GI: Soft, non-tender, with normal bowel sounds. No distension or tympany. No guarding or rebound. No evidence of tenderness throughout. Skin: Warm, dry with normal turgor. Normal color with no rashes, no lesions, and no evidence of cellulitis. MS/ Extremity: Pulses equal, no cyanosis. Neurovascular intact. Full, normal range of motion. 13:50 Musculoskeletal/extremity: Mild tenderness to the right bicipital fossa without swelling, deformity. Pulses, motor, sensation are intact. 13:52 ECG was reviewed by the Attending Physician. rt Vital Signs: 11:57 BP 191 / 91; Pulse 78; Resp 16; Temp 98.1; Pulse Ox 97% on R/A; iw 13:13 BP 210 / 86; Pulse 73; Resp 16; Pulse Ox 95% on R/A; iw 14:09 BP 182 / 75; Pulse 74; Resp 14; Pulse Ox 93% on R/A; iw 14:47 BP 138 / 59; Pulse 70; Resp 16; Pulse Ox 96% on R/A; iw MDM: 11:48 Patient medically screened. rt 15:39 Differential diagnosis: Musculoskeletal pain, cardiac chest pain, hypertensive rt emergency. Data reviewed: vital signs, nurses notes, lab test result(s), EKG, radiologic studies. Consideration of Admission/Observation Escalation of care including admission/observation considered. Management of patient was discussed with the following: Hospitalist: Agrees to admit. Independent interpretation of the following test(s) in the Emergency Department CT Scan: My interpretation is No consolidation seen on interpretation of CT scan images. Test considered but Not performed: X-ray: CT angiogram performed, x-ray redundant. Care significantly affected by the following chronic conditions: Coronary artery disease. Counseling: I had a detailed discussion with the patient and/or guardian regarding the historical points, exam findings, and any diagnostic results supporting the discharge/admit diagnosis, lab results, radiology results, the need for further work-up and treatment in the hospital. Response to treatment: the patient's symptoms have markedly improved after treatment. 12/30 11:49 Order name: Basic Metabolic Panel; Complete Time: 13:42 rt 12/30 11:49 Order name: CBC with Diff; Complete Time: 13:42 rt 12/30 11:49 Order name: LFT's; Complete Time: 13:42 rt 12/30 11:49 Order name: Magnesium; Complete Time: 13:42 rt 12/30 11:49 Order name: NT PRO-BNP; Complete Time: 13:42 rt 12/30 11:49 Order name: Troponin HS; Complete Time: 13:42 rt 12/30 12:32 Order name: Urinalysis w/ reflexes; Complete Time: 13:42 iw 12/30 11:49 Order name: CT Chest For PE Angio; Complete Time: 14:15 rt 12/30 11:49 Order name: EKG; Complete Time: 11:50 rt 12/30 11:49 Order name: Cardiac monitoring; Complete Time: 13:12 rt 12/30 11:49 Order name: EKG - Nurse/Tech; Complete Time: 12:47 rt 12/30 11:49 Order name: IV Saline Lock; Complete Time: 13:12 rt 12/30 11:49 Order name: Labs collected and sent; Complete Time: 13:12 rt 12/30 11:49 Order name: O2 Per Protocol; Complete Time: 12:54 rt 12/30 11:49 Order name: O2 Sat Monitoring; Complete Time: 12:54 rt EC:52 Rate is 69 beats/min. Rhythm is regular, Normal Sinus Rhythm with Occasional PVCs. QRS rt Valentine is Normal. OK interval is normal. QRS interval is normal. QT interval is normal. No Q waves. No ST changes noted. Interpreted by me. Administered Medications: 14:09 Drug: morphine IVP or IV 4 mg IVP once over 4 mins Route: IVP; Infused Over: 4 mins; iw Site: left antecubital; 16:00 Follow up: Response: No adverse reaction; Marked relief of symptoms; Pain is decreased iw 14:09 Drug: Ondansetron IVP 4 mg IVP once; over 2 minutes Route: IVP; Site: left antecubital; iw 16:00 Follow up: Response: No adverse reaction iw 15:33 Not Given (Physician Discretion): nitroglycerin0.4 mg Sublingual once; every five iw minute if needed x3 16:30 Drug: Aspirin PO 325 mg PO once Route: PO; iw 17:00 Follow up: Response: No adverse reaction iw Disposition Summary: 12/31/23 15:38 Hospitalization Ordered Notes: Hospitalization Status: Observation rt Provider: Lupillo Lujan rt Location: Telemetry/MedSurg (observation) rt Condition: Stable rt Problem: new rt Symptoms: have improved rt Bed/Room Type: Standard rt Room Assignment: 410(12/31/23 16:11) eb Diagnosis - Chest pain, unspecified rt - Essential (primary) hypertension rt Forms: - Medication Reconciliation Form rt - SBAR form rt - Leadership Thank You Letter rt Signatures: Dispatcher [employer] EDDasha Vallejo RN RN Noa Corona Ryan, MD MD rt Corrections: (The following items were deleted from the chart) 11:50 11:50 BASIC METABOLIC PANEL+C.LAB.BRZ ordered. EDMS EDMS 11:50 11:50 CBC+H.LAB.BRZ ordered. EDMS EDMS 11:50 11:50 HEPATIC FUNCTION+C.LAB.BRZ ordered. EDMS EDMS 11:50 11:50 MAGNESIUM+C.LAB.BRZ ordered. EDMS EDMS 11:50 11:50 PROBNP+C.LAB.BRZ ordered. EDMS EDMS 11:50 11:50 Troponin High Sensitivity+C.LAB.BRZ ordered. EDMS EDMS 16:11 15:38 rt eb
[2023-12-31] MEDS ORDERED: ASPIRIN 81 MG CHEWABLE TABLET ONE (16:12)
--- NOTE | 2023-12-31 16:19 | P.HP ---
Certification for Inpatient Patient admitted to: Observation With expected LOS: <2 Midnights Patient will require the following post-hospital care: None Practitioner: I am a practitioner with admitting privileges, knowledge of patient current condition, hospital course, and medical plan of care. Services: Services provided to patient in accordance with Admission requirements found in Title 42 Section 412.3 of the Code of Federal Regulations Patient History Date of Service: 12/31/23 Primary Care Provider: Dr. Paz Reason for admission: Chest pain History of Present Illness: 83-year-old female with history of CAD with previous stents, hypertension, hyperlipidemia, pvl-siaywux-vsjdllpra diabetes, TIA presents to the emergency department chief complaint of right-sided chest wall pain, chest pain and shortness of breath. She reports that she has been having ongoing pain to her right upper extremity, right chest wall which began radiating to her chest and felt like a pressure with associated shortness of breath. She was evaluated in the emergency department her initial high suspicion was normal at 20 BNP 9035 creatinine 0.75 glucose 165 CTA of the chest was performed which was negative for pulmonary embolism, no acute findings. Given patient's age, risk factors ED provider wishes to admit under observation for ACS rule out. Allergies No Known Allergies Allergy (Verified 05/18/20 01:30) Home Medications: Cholecalciferol (Vitamin D3) [Vitamin D 1000 Iu Tab*] 1,000 unit PO DAILY 01/21/16 Furosemide [Lasix*] 20 mg PO DAILY tab 03/07/16 Aspirin 81 mg PO BEDTIME 05/18/20 Biotin 5,000 mcg PO DAILY 05/18/20 Cinacalcet HCl 30 mg PO BEDTIME 05/18/20 Ubidecarenone [Co Q-10] 200 mg PO NOON 05/18/20 Ezetimibe [Zetia*] 10 mg PO NOON 07/13/22 Polyethylene Glycol 3350 [Miralax] 17 gm PO DAILYPRN PRN 07/13/22 cloNIDine HCL [Clonidine HCl] 0.2 mg PO TID 07/13/22 Insulin -Regular Human [Novolin -R*] See Protocol SQ PRN 01/18/23 Atorvastatin Calcium [Lipitor] 40 mg PO BEDTIME 30 Days tab 03/04/23 Clopidogrel Bisulfate [Plavix*] 75 mg PO DAILY #30 03/04/23 Folic Acid 1 mg PO ONCE #30 03/04/23 Valsartan [Diovan*] 320 mg PO DAILY tab 03/04/23 Insulin Glargine/Lixisenatide [Soliqua 100 Unit-33 Mcg/ml Pen] 30 units SQ [id number] 05/05/23 Linagliptin/Metformin HCl [Jentadueto Xr 5 mg-1,000 mg Tb] 1,000 mg PO DAILY 05/05/23 carvediloL [Coreg*] 12.5 mg PO DAILY 08/30/23 - Past Medical/Surgical History Diabetic: Yes -: hypertension, -: diabetes-NIDDM, -: CAD, carotid artery stenosis -: hyperlipidemia -: osteoarthritis -: peripheral neuropathy -: GERD -: Diverticulosis -: lumbar spondylosis/ radiculopathy -: lumbar stenosis -: Tonsillectomy -: Right knee replacement(2013) -: anterior cervical discectomy -: L2-L5 Decompressive laminectomies & bilateral foraminotomies 02/08/16 -: left knee replacement (2014) -: abd laparotomy for colon tear -: rectal abscess I&D 2009 Psychosocial/ Personal History: Patient lives at home with her - Family History Mother -: Heart disease, Hypertension Notes: already - Social History Alcohol use: No CD- Drugs: No Caffeine use: No Place of Residence: Home Review of Systems 10-point ROS is otherwise unremarkable Cardiovascular: Chest Pain Physical Examination - Physical Exam General: Alert, In no apparent distress, Oriented x3 HEENT: Atraumatic, PERRLA, Mucous membr. moist/pink, EOMI Neck: Supple, 2+ carotid pulse no bruit, No LAD Respiratory: Clear to auscultation bilaterally, Normal air movement Cardiovascular: Regular rate/rhythm, Normal S1 S2, Other (Right lateral chest wall tenderness) Gastrointestinal: Normal bowel sounds, No tenderness Musculoskeletal: No tenderness Integumentary: No rashes Neurological: Normal speech, Normal strength at 5/5 x4 extr, Normal tone, Normal affect - Studies Laboratory Data (last 24 hrs) 12/31/23 12/31/23 13:08 12:09 WBC 8.00 Hgb 13.2 Hct 41.1 Plt Count 417 H Sodium 140 Potassium 4.0 BUN 19 H Creatinine 0.75 Glucose 165 H Magnesium 1.9 Total Bilirubin 0.6 AST 16 ALT 21 Alkaline Phosphatase 77 Assessment and Plan - Plan Assessment: Chest pain rule out ACS history of CAD Diabetes mellitus type [id number] Hypertension Hyperlipidemia History of TIA History of carotid stenosis Plan: Chest pain rule out ACS history of CAD Atypical chest pain, right lateral chest wall tenderness on palpation History of CAD with prior stents last heart cath 2019 Unclear if she had further testing since then Initial high sensitive troponin normal, trend troponins and monitor at home to this evening Cardiology consultation in place Home medications continued Diabetes mellitus type 6yrs-tmejhdz-jjuaufdnf ACHS Accu-Chek, sliding scale [place] Hypertension Hyperlipidemia History of TIA Home medications continued History of carotid stenosis Had recent carotid Doppler with vascular surgeon who said everything was good DVT PPX: Lovenox Code status: Full Discharge Plan: Home Plan to discharge in: 24 Hours - Advance Directives Does patient have a Living Will: No Does patient have a Durable POA for Healthcare: No - Code Status/Comfort Care Code Status Assessed: Yes (Full code) Critical Care: No Time Spent Managing Pts Care (In Minutes): 70
[2023-12-31] MEDS: INSULIN REGULAR (HUMAN) 100 UNIT/ML SQ SCH (17:46)
[2023-12-31] MEDS: carvediloL 25 MG TAB PO SCH (19:18)
[2023-12-31 19:49] VITALS: BMI 21.8
[2023-12-31] MEDS: ASPIRIN 81 MG CHEWABLE TABLET PO SCH (20:13)
[2023-12-31] MEDS: ATORVASTATIN 40 MG TAB PO SCH (20:13)
[2023-12-31] MEDS: CLONIDINE HCL 0.3 MG TAB PO SCH (21:00)
[2024-01-01] MEDS: HYDROCODONE/APAP 10/325 TAB PO PRN (05:58)
[2024-01-01 06:17] LABS: Absolute Basophils 0.1 K/uL (0-0.5); Absolute Eosinophils 0.2 K/uL (0-0.5); Absolute Lymphocytes (CBC) 1.4 K/uL (0.7-4.9); Absolute Monocytes 1.1 K/uL (0.1-1.3); Absolute Neutrophil 6.3 K/uL (1.8-8.0); Basophils % 0.8 % (0-1.3); Eosinophils % 2.3 % (0-4.4); Hemoglobin 11.4 g/dL (12.0-15.0); Lymphocytes % 15.7 % (15.3-44.8); MCH 28.6 pg (27.0-35.0); MCHC 32.5 g/dL (32.0-36.0); MCV 88.2 fL (80-100); MPV 8.5 fL (7.6-11.3); Monocytes % 12.2 % (3.3-12.3); Platelets 325 thou/uL (152-406); RBC Red Blood Cell Count 3.97 M/uL (3.86-4.86); Red Cell Distribution Width 15.6 % (12.1-15.2)
[2024-01-01 06:32] LABS: Anion Gap 9.9 mEq/L (5.0-15.0); Potassium 3.9 mEq/L (3.5-5.1); Troponin High Sensitivity 11.5 pg/mL (<58.9)
[2024-01-01] MEDS: MORPHINE 2 MG/ML SYR IV PRN (08:47)
[2024-01-01] MEDS: VALSARTAN 160 MG TAB PO SCH (09:07)
[2024-01-01] MEDS: CLOPIDOGREL 75 MG TABLET PO SCH (09:11)
[2024-01-01] MEDS: ENOXAPARIN 40 MG/0.4 ML SQ SCH (09:12)
--- NOTE | 2024-01-01 09:49 | RAD REPORT ---
EXAM DESCRIPTION: RAD - Humerus Right - 01/01/2024 9:41 am CLINICAL HISTORY: right arm pain COMPARISON: No comparisons FINDINGS: Proximal right humeral hardware is in place. No hardware loosening is seen. Diffuse osteop enia. No fracture or dislocation seen.
[2024-01-01 11:30] VITALS: O2SAT 93
--- NOTE | 2024-01-01 12:15 | P.CNS ---
Date of Consult: 01/01/24 Primary Care Provider: Dr. Paz Chief Complaint: Chest pain History of Present Illness: Patient with PMH of HTN, CAD s/p PCI, HLD presented with right shoulder, arm pain that has been going on for few days, got significantly worse yesterday and was not responding to usual pain medications and she measured her BP and it was over 260 systolic, that when she started feeling chest pressure and palpitations. Allergies No Known Allergies Allergy (Verified 05/18/20 01:30) Home Medications: Cholecalciferol (Vitamin D3) [Vitamin D 1000 Iu Tab*] 1,000 unit PO DAILY 01/21/16 Furosemide [Lasix*] 20 mg PO DAILY tab 03/07/16 Aspirin 81 mg PO BEDTIME 05/18/20 Biotin 5,000 mcg PO DAILY 05/18/20 Cinacalcet HCl 30 mg PO BEDTIME 05/18/20 Ubidecarenone [Co Q-10] 200 mg PO NOON 05/18/20 Ezetimibe [Zetia*] 10 mg PO NOON 07/13/22 Polyethylene Glycol 3350 [Miralax] 17 gm PO DAILYPRN PRN 07/13/22 cloNIDine HCL [Clonidine HCl] 0.2 mg PO TID 07/13/22 Insulin -Regular Human [Novolin -R*] See Protocol SQ PRN 01/18/23 Atorvastatin Calcium [Lipitor] 40 mg PO BEDTIME 30 Days tab 03/04/23 Clopidogrel Bisulfate [Plavix*] 75 mg PO DAILY #30 03/04/23 Folic Acid 1 mg PO ONCE #30 03/04/23 Valsartan [Diovan*] 320 mg PO DAILY tab 03/04/23 Insulin Glargine/Lixisenatide [Soliqua 100 Unit-33 Mcg/ml Pen] 30 units SQ [id number] 05/05/23 Linagliptin/Metformin HCl [Jentadueto Xr 5 mg-1,000 mg Tb] 1,000 mg PO DAILY 05/05/23 carvediloL [Coreg*] 12.5 mg PO DAILY 08/30/23 - Past Medical/Surgical History Diabetic: Yes -: hypertension, -: diabetes-NIDDM, -: CAD, carotid artery stenosis -: hyperlipidemia -: osteoarthritis -: peripheral neuropathy -: GERD -: Diverticulosis -: lumbar spondylosis/ radiculopathy -: lumbar stenosis -: Tonsillectomy -: Right knee replacement(2013) -: anterior cervical discectomy -: L2-L5 Decompressive laminectomies & bilateral foraminotomies 02/08/16 -: left knee replacement (2014) -: abd laparotomy for colon tear -: rectal abscess I&D 2009 Psychosocial/ Personal History: Patient lives at home with her - Family History Mother Medical History: Heart disease, Hypertension Notes: already - Social History Smoking Status: Unknown if ever smoked Alcohol use: No CD- Drugs: No Caffeine use: No Place of Residence: Home Review of Systems 10-point ROS is otherwise unremarkable Physical Examination Temp Pulse Resp BP Pulse Ox 97.2 F 60 18 195/84 H 93 01/01/24 08:00 01/01/24 09:11 01/01/24 08:00 01/01/24 09:11 01/01/24 08:00 General: Alert, In no apparent distress HEENT: Atraumatic, PERRLA, Mucous membr. moist/pink, EOMI, Sclerae nonicteric Neck: Supple, 2+ carotid pulse no bruit, No LAD, Without JVD or thyroid abnormality Respiratory: Clear to auscultation bilaterally, Normal air movement Cardiovascular: Regular rate/rhythm, Normal S1 S2 Gastrointestinal: Normal bowel sounds, No tenderness Musculoskeletal: No tenderness Integumentary: No rashes Neurological: Normal gait, Normal speech, Normal tone, Normal affect Lymphatics: No axilla or inguinal lymphadenopathy Laboratory Data (last 24 hrs) 12/31/23 12/31/23 13:08 12:09 WBC 8.00 Hgb 13.2 Hct 41.1 Plt Count 417 H Sodium 140 Potassium 4.0 BUN 19 H Creatinine 0.75 Glucose 165 H Magnesium 1.9 Total Bilirubin 0.6 AST 16 ALT 21 Alkaline Phosphatase 77 - Problems (1) CAD (coronary artery disease) Onset Date: 01/25/16 Current Visit: No Status: Acute Plan: Patient chest pain is atypical, right sided, troponin are negative. no need for further cardiac work up continue ASA 81 mg daily continue Plavix 75 mg daily (2) Hyperlipidemia Onset Date: 01/25/16 Current Visit: No Status: Acute Plan: continue lipitor 40 mg daily (3) Hypertension Onset Date: 01/25/16 Current Visit: No Status: Acute Plan: continue Coreg 25 mg po BID Continue Diovan 320 mg daily Continue Clonidine 0.3 mg TID May add Norvasc if BP still poorly controlled.
--- NOTE | 2024-01-01 12:43 | EKG ---
Test Date: 2023-12-31 Test Time: 12:43:03 Flight Security Specialist: ARCENIO MEASUREMENT RESULTS: Intervals: Rate: 69 NC: 174 QRSD: 78 QT: 412 QTc: 441 [place]: P: 50 NC: 174 QRS: 38 T: -59 INTERPRETIVE STATEMENTS: Sinus rhythm with occasional premature ventricular complexes T wave abnormality, consider anterior ischemia Abnormal ECG Compared to ECG 12/31/2023 12:41:58 Ventricular premature complex(es) now present Myocardial infarct finding no longer present T-wave abnormality still present Possible ischemia still present Electronically Signed On 01-01-24 12:41:43 CDT by Junior Cali
--- NOTE | 2024-01-01 12:43 | EKG ---
Test Date: 2023-12-31 Test Time: 12:41:58 Iron Worker: ARCENIO MEASUREMENT RESULTS: Intervals: Rate: 69 OH: 176 QRSD: 82 QT: 408 QTc: 437 [place]: P: 67 OH: 176 QRS: 39 T: -45 INTERPRETIVE STATEMENTS: Normal sinus rhythm Septal infarct, age undetermined T wave abnormality, consider anterior ischemia Abnormal ECG Compared to ECG 11/23/2023 15:48:07 T-wave abnormality now present Possible ischemia now present Myocardial infarct finding still present Electronically Signed On 01-01-24 12:41:45 CDT by Junior Cali
[2024-01-01 12:45] VITALS: BP 101/51; TEMP 97.4
[2024-01-01] MEDS: PNEUMOCOCCAL VACCINE 0.5 ML IMVAC ONE (14:00)
--- NOTE | 2024-01-01 14:01 | P.DS ---
Admission Date: 12/31/23 Discharge Date: 01/01/24 Primary Care Provider: Dr. Paz Disposition: ROUTINE DISCHARGE Discharge Condition: GOOD Reason for Admission: Chest pain Consultations: Cardiology- Dr. Cali Brief History of Present Illness: 83-year-old female with history of CAD with previous stents, hypertension, hyperlipidemia, vtg-naearar-wklwkmopk diabetes, TIA presents to the emergency department chief complaint of right-sided chest wall pain, chest pain and shortness of breath. She reports that she has been having ongoing pain to her right upper extremity, right chest wall which began radiating to her chest and felt like a pressure with associated shortness of breath. She was evaluated in the emergency department her initial high suspicion was normal at 20 BNP 9035 creatinine 0.75 glucose 165 CTA of the chest was performed which was negative for pulmonary embolism, no acute findings. Given patient's age, risk factors ED provider wishes to admit under observation for ACS rule out. Hospital Course: Assessment: Chest pain rule out ACS history of CAD Diabetes mellitus type [id number] Hypertension Hyperlipidemia History of TIA History of carotid stenosis Patient was admitted to the hospital under observation for ACS rule out as she was having pain on her right side that was difficult to pinpoint, initially pain seemed to localize to the right lateral ribs but later pain seem to be more related to her humeral area. Pain was sometimes worse with elevation of the right upper extremity but not consistently worse with range of motion. Given the presence of radiation to her chest and some shortness of breath she was admitted for ACS R/O. Troponins were trended and flat/negative. CTA of the chest was performed which was negative for pulmonary was him, showed no other acute findings. This morning she seemed to more having right upper extremity pain so an x-ray was performed which showed proximal right humeral hardware in place, no hardware loosening is seen. Diffuse osteopenia. No fracture or dislocation seen. Patient was seen by cardiology who believes pain is noncardiac in nature and troponins were negative, recommends outpatient follow- up for further management. Patient is appointment with her head housekeeper tomorrow, also recommend follow- up with her orthopedic doctor who performed her shoulder surgery if she continues to have pain. Please continue home medications as previously prescribed Vital Signs/Physical Exam: Temp Pulse Resp BP Pulse Ox 97.4 F 53 16 101/51 L 94 01/01/24 12:00 01/01/24 12:00 01/01/24 12:00 01/01/24 12:00 01/01/24 12:00 General: Alert, In no apparent distress, Oriented x3 HEENT: Atraumatic, PERRLA Neck: Supple, JVD not distended Respiratory: Clear to auscultation bilaterally, Normal air movement Cardiovascular: Regular rate/rhythm, Normal S1 S2 Gastrointestinal: Normal bowel sounds Musculoskeletal: No tenderness Integumentary: No rashes Neurological: Normal speech, Normal tone Laboratory Data at Discharge: WBC 9.10 thou/uL (4.3-10.9) 01/01/24 05:53 Hgb 11.4 g/dL (12.0-15.0) L D 01/01/24 05:53 Hct 35.0 % (36.0-45.0) L 01/01/24 05:53 Plt Count 325 thou/uL (152-406) 01/01/24 05:53 Sodium 138 mEq/L (136-145) 01/01/24 05:53 Potassium 3.9 mEq/L (3.5-5.1) 01/01/24 05:53 BUN 24 mg/dL (7-18) H 01/01/24 05:53 Creatinine 0.82 mg/dL (0.55-1.02) 01/01/24 05:53 Glucose 87 mg/dL (74-106) 01/01/24 05:53 Magnesium 1.9 mg/dL (1.6-2.4) 12/31/23 13:08 Total Bilirubin 0.6 mg/dL (0.2-1.0) 12/31/23 13:08 AST 16 U/L (15-37) 12/31/23 13:08 ALT 21 U/L (13-56) 12/31/23 13:08 Alkaline Phosphatase 77 U/L (45-117) 12/31/23 13:08 Home Medications: Cholecalciferol (Vitamin D3) [Vitamin D 1000 Iu Tab*] 1,000 unit PO DAILY 01/21/16 Furosemide [Lasix*] 20 mg PO DAILY tab 03/07/16 Aspirin 81 mg PO BEDTIME 05/18/20 Biotin 5,000 mcg PO DAILY 05/18/20 Cinacalcet HCl 30 mg PO BEDTIME 12/01/20 Ubidecarenone [Co Q-10] 200 mg PO NOON 05/18/20 Ezetimibe [Zetia*] 10 mg PO NOON 07/13/22 Polyethylene Glycol 3350 [Miralax] 17 gm PO DAILYPRN PRN 07/13/22 cloNIDine HCL [Clonidine HCl] 0.2 mg PO TID 07/13/22 Insulin -Regular Human [Novolin -R*] See Protocol SQ PRN 01/18/23 Atorvastatin Calcium [Lipitor] 40 mg PO BEDTIME 30 Days tab 03/04/23 Clopidogrel Bisulfate [Plavix*] 75 mg PO DAILY #30 03/04/23 Folic Acid 1 mg PO ONCE #30 03/04/23 Valsartan [Diovan*] 320 mg PO DAILY tab 03/04/23 Insulin Glargine/Lixisenatide [Soliqua 100 Unit-33 Mcg/ml Pen] 30 units SQ [id number] 05/05/23 Linagliptin/Metformin HCl [Jentadueto Xr 5 mg-1,000 mg Tb] 1,000 mg PO DAILY 05/05/23 carvediloL [Coreg*] 12.5 mg PO DAILY 08/30/23 Physician Discharge Instructions: Patient was admitted to the hospital under observation for ACS rule out as she was having pain on her right side that was difficult to pinpoint, initially pain seemed to localize to the right lateral ribs but later pain seem to be more related to her humeral area. Pain was sometimes worse with elevation of the right upper extremity but not consistently worse with range of motion. Given the presence of radiation to her chest and some shortness of breath she was admitted for ACS R/O. Troponins were trended and flat/negative. CTA of the chest was performed which was negative for pulmonary was him, showed no other acute findings. This morning she seemed to more having right upper extremity pain so an x-ray was performed which showed proximal right humeral hardware in place, no hardware loosening is seen. Diffuse osteopenia. No fracture or dislocation seen. Patient was seen by cardiology who believes pain is noncardiac in nature and troponins were negative, recommends outpatient follow- up for further management. Patient is appointment with her head housekeeper tomorrow, also recommend follow- up with her orthopedic doctor who performed her shoulder surgery if she continues to have pain. Please continue home medications as previously prescribed Diet: AHA Activity: Fall precautions Followup: Joao Paz MD [Primary Care Provider] - 1-2 Weeks Time spent managing pt's care (in minutes): 35
[2024-01-01] MEDS: EZETIMIBE 10 MG TAB PO SCH (14:26)
== END 2024-01-01 15:03 | disposition home or self-care (01) ==
LOC: ER 11:40 → ERHOLD 16:05 → 4TH 17:10
PROVIDERS: ADMIT Internal Medicine; ATTEND Hospitalist
DX: R07.9 Chest pain, unspecified (principal); I25.10 Atherosclerotic heart disease of native coronary artery without angina pectoris; I65.29 Occlusion and stenosis of unspecified carotid artery; I10 Essential (primary) hypertension; E78.5 Hyperlipidemia, unspecified; E11.9 Type 2 diabetes mellitus without complications; R06.02 Shortness of breath; Z95.5 Presence of coronary angioplasty implant and graft; Z86.73 Personal history of transient ischemic attack (TIA), and cerebral infarction without residual deficits; Z79.82 Long term (current) use of aspirin
CPT/HCPCS: 85025; 81001; 80048; 36415; 83735; 82947; 80076; 84484 ×2; 83880; 71275; Q9967; J2405; 93005; 96374; 96375; 99285; G0378; J1650; J2270

== ENCOUNTER 2024-02-17 14:08 | Emergency (ER) | payer OTHER ==
[2024-02-17 15:06] LABS: Absolute Eosinophils 0.1 K/uL (0-0.5); Absolute Lymphocytes (CBC) 0.9 K/uL (0.7-4.9); Absolute Monocytes 0.6 K/uL (0.1-1.3); Absolute Neutrophil 4.1 K/uL (1.8-8.0); Basophils % 0.4 % (0-1.3); Lymphocytes % 16.3 % (15.3-44.8); MCH 29.3 pg (27.0-35.0); MCHC 33.2 g/dL (32.0-36.0); MCV 88.1 fL (80-100); MPV 8.6 fL (7.6-11.3); Monocytes % 10.4 % (3.3-12.3); Neutrophils % 70.9 % (41.7-73.7); Platelets 253 thou/uL (152-406); RBC Red Blood Cell Count 3.75 M/uL (3.86-4.86); Red Cell Distribution Width 14.8 % (12.1-15.2)
[2024-02-17 15:18] LABS: Anion Gap 7.3 mEq/L (5.0-15.0); Magnesium 1.9 mg/dL (1.6-2.4); Potassium 4.3 mEq/L (3.5-5.1); Troponin High Sensitivity 8.2 pg/mL (<58.9)
--- NOTE | 2024-02-17 15:47 | RAD REPORT ---
EXAM DESCRIPTION: CT - Head Brain Wo Cont - 02/17/2024 3:38 pm CLINICAL HISTORY: hypotension / ams Headache, hypertension COMPARISON: Head Brain Wo Cont dated 01/02/2024; Head Brain Wo Cont dated 05/05/2023 TECHNIQUE: All CT scans are performed using dose optimization technique as appropriate and may inclu de automated exposure control or mA/KV adjustment according to patient size. 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 The paranasal sinuses and mastoids are clear. The calvarium is intact. IMPRESSION: No acute intracranial abnormality.
--- NOTE | 2024-02-17 16:14 | ER ---
Nurse's Notes [facility] Name: Kate Love Age: 83 yrs Sex: Female : 1940 Arrival Date: 02/17/2024 Time: 14:08 Bed 7 Private MD: Diagnosis: Hypotension resolved, hypertension education Presentation: 02/16 14:13 Chief complaint: EMS states: toned out to patient home for hypertension. Pt took 0.6 mg ld1 Clonidine due to "Cardiology instructions.". Coronavirus screen: At this time, the client does not indicate any symptoms associated with coronavirus-19. Ebola Screen: No symptoms or risks identified at this time. Initial Sepsis Screen: Does the patient meet any 2 criteria? No. Patient's initial sepsis screen is negative. Does the patient have a suspected source of infection? No. Patient's initial sepsis screen is negative. Risk Assessment: Do you want to hurt yourself or someone else? Patient reports no desire to harm self or others. Onset of symptoms was February 17, 2024. 14:13 Method Of Arrival: EMS: [facility] ld1 14:13 Acuity: AURELIA 3 ld1 Triage Assessment: 14:14 General: Appears in no apparent distress. comfortable, Behavior is calm, cooperative, ld1 appropriate for age. Pain: Denies pain. EENT: No signs and/or symptoms were reported regarding the EENT system. Neuro: Level of Consciousness is awake, alert, obeys commands, Oriented to person, place, time, situation, Appropriate for age. Cardiovascular: Capillary refill < 3 seconds Patient's skin is warm and dry. Rhythm is sinus rhythm. Respiratory: Airway is patent Respiratory effort is even, unlabored. GI: Abdomen is flat, non-distended. : No signs and/or symptoms were reported regarding the genitourinary system. Derm: No signs and/or symptoms reported regarding the dermatologic system. Musculoskeletal: No signs and/or symptoms reported regarding the musculoskeletal system. Historical: - Allergies: 14:14 No Known Allergies; ld1 - PMHx: 14:14 Asthma; cardiac stent x2; Hyperlipidemia; Hypertension; Myocardial infarction; ld1 perforated rectum; Transient cerebral ischemia; Diabetes mellitus; - PSHx: 14:14 Cholecystectomy; laminectomy; right \\T\\ left knee; right and left shoulder; Stented ld1 artery; - Immunization history:: Adult Immunizations up to date. - Infectious Disease History:: Denies. - Social history:: Smoking status: Patient denies any tobacco usage or history of. Screenin:16 [facility] ED Fall Risk Assessment (Adult) History of falling in the last 3 months, ld1 including since admission No falls in past 3 months (0 pts) Confusion or Disorientation No (0 pts) Intoxicated or Sedated No (0 pts) Impaired Gait No (0 pts) Mobility Assist Device Used No (0 pt) Altered Elimination No (0 pt) Score/Fall Risk Level 0 - 2 = Low Risk Oriented to surroundings, Maintained a safe environment, Educated pt \\T\\ family on fall prevention, incl call for assistance when getting out of bed, Assessed \\T\\ reinforced patient's understanding of fall precautions, Provided non-skid footwear, Hourly rounding (assess needs \\T\\ fall precautionary measures) done, Used ambulatory aids as needed (educated on \\T\\ assisted with), Used gait belt as appropriate. Abuse screen: Denies threats or abuse. Denies injuries from another. Nutritional screening: No deficits noted. Tuberculosis screening: No symptoms or risk factors identified. Assessment: 14:16 Reassessment: See triage assessment. ld1 16:16 Reassessment: No changes from previously documented assessment. Patient and/or family mb9 updated on plan of care and expected duration. Pain level reassessed. Patient is alert, oriented x 3, equal unlabored respirations, skin warm/dry/pink. Vital Signs: 14:13 BP 153 / 63; Pulse 68; Resp 18; Temp 97.8(TE); Pulse Ox 98% on R/A; Weight 61.23 kg; ld1 Height 5 ft. 3 in. ; Pain 0/10; 14:50 BP 154 / 70; Pulse 64; Resp 18; Pulse Ox 97% on R/A; ld1 15:49 BP 167 / 73; Pulse 65; Resp 18; Pulse Ox 100% on R/A; mb9 16:42 BP 159 / 69; Pulse 61; Resp 18; Pulse Ox 100% on R/A; ld1 14:13 Body Mass Index 23.91 (61.23 kg, 160.02 cm) ld1 14:13 Pain Scale: Adult ld1 ED Course: 14:12 Patient arrived in ED. eb 14:12 Lucero, Alexandrea, RN is Primary Nurse. ld1 14:14 Triage completed. ld1 14:14 Arm band placed on right wrist. ld1 14:16 Patient has correct armband on for positive identification. Placed in gown. Bed in low ld1 position. Call light in reach. Side rails up X2. facility coordinator on. Pulse ox on. NIBP on. Door closed. Noise minimized. Warm blanket given. 14:16 No provider procedures requiring assistance completed. ld1 14:18 Jordin Phillips MD is Attending Physician. sp3 14:50 Inserted saline lock: 22 gauge in right forearm, using aseptic technique. Blood ld1 collected. Flushed with 10 mL NS. 15:09 EKG done, by ED staff, reviewed by Jordin Phillips MD. mb9 15:39 CT Head Brain wo Cont In Process Unspecified. EDMS 16:16 Provided Education on: press call light if needing anything . mb9 16:16 IV discontinued, intact, bleeding controlled, No redness/swelling at site. Pressure mb9 dressing applied. Administered Medications: No medications were administered Medication: 14:16 VIS not applicable for this client. ld1 Outcome: 16:14 Discharge ordered by . sp3 16:16 Discharged to home via wheelchair, with family, mb9 16:16 Condition: stable 16:16 Discharge instructions given to patient, Instructed on discharge instructions, follow up and referral plans. Demonstrated understanding of instructions, follow-up care, 16:42 Patient left the ED. ld1 Signatures: Dispatcher [employer] [facility] Noa Marquez Alexandrea Lucero, RN RN ld1 Jordin Phillips MD MD sp3 Kimberly Ugarte RN RN mb9
--- NOTE | 2024-02-17 16:14 | EDPHYS ---
Physician Documentation [facility] Name: Kate Love Age: 83 yrs Sex: Female : 1940 Arrival Date: 02/17/2024 Time: 14:08 Bed 7 Private MD: ED Physician Jordin Phillips HPI: 02/16 14:31 This 83 yrs old Female presents to ER via EMS with complaints of hypertension then sp3 hypotension. 14:31 83-year-old female with history of asthma, LA, hypertension, cardiac stents, prior TIA sp3 and now presents to the ED with chief complaint decrease blood pressure and near syncope after close we gave a total of 0.6 mg of clonidine over 4 hours due to high blood pressure in the 200s systolic range. gave 0.3 mg followed by another 0.2 mg followed by a hydralazine dose. Once blood pressure dropped, EMS was activated who found patient to be hypotensive in the 90s systolic and is spontaneously resolved to the 1 20-1 40 systolic range. Current blood pressure 153/63. Patient currently has no symptoms and at no time had headache, chest pain, shortness of breath, full syncope, or any other critical findings.. Historical: - Allergies: 14:14 No Known Allergies; ld1 - PMHx: 14:14 Asthma; cardiac stent x2; Hyperlipidemia; Hypertension; Myocardial infarction; ld1 perforated rectum; Transient cerebral ischemia; Diabetes mellitus; - PSHx: 14:14 Cholecystectomy; laminectomy; right \T\ left knee; right and left shoulder; Stented ld1 artery; - Immunization history:: Adult Immunizations up to date. - Infectious Disease History:: Denies. - Social history:: Smoking status: Patient denies any tobacco usage or history of. ROS: 14:32 Constitutional: Negative for fever, chills, and weight loss, Eyes: Negative for injury, sp3 pain, redness, and discharge, Neck: Negative for injury, pain, and swelling, Respiratory: Negative for shortness of breath, cough, wheezing, and pleuritic chest pain, Abdomen/GI: Negative for abdominal pain, nausea, vomiting, diarrhea, and constipation, Back: Negative for injury and pain, MS/Extremity: Negative for injury and deformity, Skin: Negative for injury, rash, and discoloration, Neuro: Negative for headache, weakness, numbness, tingling, and seizure, Psych: Negative for depression, anxiety, suicide ideation, homicidal ideation, and hallucinations, Allergy/Immunology: Negative for hives, rash, and allergies, Endocrine: Negative for neck swelling, polydipsia, polyuria, polyphagia, and marked weight changes, Hematologic/Lymphatic: Negative for swollen nodes, abnormal bleeding, and unusual bruising, 14:32 All other systems are negative, Exam: 14:33 Constitutional: This is a well developed, well nourished patient who is awake, alert, sp3 and in no acute distress. Head/Face: Normocephalic, atraumatic. Eyes: Pupils equal round and reactive to light, extra-ocular motions intact. Lids and lashes normal. Conjunctiva and sclera are non-icteric and not injected. Cornea within normal limits. Periorbital areas with no swelling, redness, or edema. ENT: Nares patent. No nasal discharge, no septal abnormalities noted. External auditory canals are clear. Oropharynx with no redness, swelling, or masses, exudates, or evidence of obstruction, uvula midline. Mucous membranes moist. Neck: Trachea midline, no thyromegaly or masses palpated, and no cervical lymphadenopathy. Supple, full range of motion without nuchal rigidity, or vertebral point tenderness. No Meningismus. Chest/axilla: Normal chest wall appearance and motion. Nontender with no deformity. No lesions are appreciated. Cardiovascular: Regular rate and rhythm with a normal S1 and S2. No gallops, murmurs, or rubs. Normal PMI, no JVD. No pulse deficits. Respiratory: Lungs have equal breath sounds bilaterally, clear to auscultation and percussion. No rales, rhonchi or wheezes noted. No increased work of breathing, no retractions or nasal flaring. Abdomen/GI: Soft, non-tender, with normal bowel sounds. No distension or tympany. No guarding or rebound. No evidence of tenderness throughout. Back: No spinal tenderness. No costovertebral tenderness. Full range of motion. Skin: Warm, dry with normal turgor. Normal color with no rashes, no lesions, and no evidence of cellulitis. MS/ Extremity: Pulses equal, no cyanosis. Neurovascular intact. Full, normal range of motion. Neuro: Awake and alert, GCS 15, oriented to person, place, time, and situation. Cranial nerves II-XII grossly intact. Motor strength 5/5 in all extremities. Sensory grossly intact. Cerebellar exam normal. Normal gait. Psych: Awake, alert, with orientation to person, place and time. Behavior, mood, and affect are within normal limits. 15:12 ECG was reviewed by the Attending Physician. EKG demonstrates normal sinus rhythm at 64 sp3 bpm with normal intervals, normal QRS, normal axis, nonspecific diffuse ST's ST changes without evidence of acute ischemia. Vital Signs: 14:13 BP 153 / 63; Pulse 68; Resp 18; Temp 97.8(TE); Pulse Ox 98% on R/A; Weight 61.23 kg; ld1 Height 5 ft. 3 in. ; Pain 0/10; 14:50 BP 154 / 70; Pulse 64; Resp 18; Pulse Ox 97% on R/A; ld1 15:49 BP 167 / 73; Pulse 65; Resp 18; Pulse Ox 100% on R/A; mb9 16:42 BP 159 / 69; Pulse 61; Resp 18; Pulse Ox 100% on R/A; ld1 14:13 Body Mass Index 23.91 (61.23 kg, 160.02 cm) ld1 14:13 Pain Scale: Adult ld1 MDM: 14:19 Patient medically screened. sp3 16:13 ED course: Full workup negative including CT scan and laboratory values. Blood pressure sp3 remains stable. Will safely discharge home at this time.. 02/16 14:19 Order name: Basic Metabolic Panel; Complete Time: 15:32 sp3 02/16 14:19 Order name: CBC with Diff; Complete Time: 15:32 sp3 02/16 14:19 Order name: Magnesium; Complete Time: 15:32 sp3 02/16 14:19 Order name: Troponin HS; Complete Time: 15:32 sp3 02/16 14:24 Order name: CT Head Brain wo Cont; Complete Time: 15:48 sp3 02/16 14:19 Order name: EKG; Complete Time: 14:20 sp3 02/16 14:19 Order name: Cardiac monitoring; Complete Time: 14:29 sp3 02/16 14:19 Order name: EKG - Nurse/Tech; Complete Time: 15:05 sp3 02/16 14:19 Order name: IV Saline Lock; Complete Time: 14:49 sp3 02/16 14:19 Order name: Labs collected and sent; Complete Time: 14:49 sp3 02/16 14:19 Order name: O2 Sat Monitoring; Complete Time: 14:29 sp3 Administered Medications: No medications were administered Disposition Summary: 02/17/24 16:14 Discharge Ordered Notes: Location: Home sp3 Condition: Stable sp3 Diagnosis - Hypotension resolved, hypertension education sp3 Followup: sp3 - With: Private Physician - When: Upon discharge from the Emergency Department - Reason: Continuance of care Discharge Instructions: - Discharge Summary Sheet sp3 - Hypertension, Adult sp3 - Near-Syncope sp3 Forms: - Medication Reconciliation Form sp3 - Antibiotic Education sp3 - Prescription Opioid Use sp3 - Patient Portal Instructions sp3 - Leadership Thank You Letter sp3 Signatures: Dispatcher [employer] Alexandrea Benz, RN RN ld1 Jordin Phillips MD MD sp3
[2024-02-17 16:51] VITALS: TEMP 97.8
[2024-02-17 17:04] VITALS: O2SAT 100
[2024-02-17 17:06] VITALS: BP 159/69
--- NOTE | 2024-02-19 12:41 | EKG ---
Test Date: 2024-02-17 Test Time: 15:07:34 Stamping Press Operator: MB MEASUREMENT RESULTS: Intervals: Rate: 64 CT: QRSD: 78 QT: 416 QTc: 429 Gamaliel: P: CT: QRS: 28 T: 51 INTERPRETIVE STATEMENTS: Normal sinus rhythm Abnormal ECG Compared to ECG 01/02/2024 11:58:58 T-wave abnormality no longer present Possible ischemia no longer present Electronically Signed On 02-19-24 12:38:33 CDT by Junior Cali
== END 2024-02-17 16:42 | disposition home or self-care (01) ==
LOC: ER 14:08
DX: I95.9 Hypotension, unspecified (principal); I10 Essential (primary) hypertension; I25.2 Old myocardial infarction; E11.9 Type 2 diabetes mellitus without complications; Z95.818 Presence of other cardiac implants and grafts; Z86.73 Personal history of transient ischemic attack (TIA), and cerebral infarction without residual deficits
CPT/HCPCS: 36415; 70450; 80048; 83735; 84484; 85025; 93005; 99284

== ENCOUNTER 2024-06-02 16:25 | Inpatient (IN) | payer OTHER ==
[2024-06-02] MEDS ORDERED: ONDANSETRON 4 MG/2 ML VIAL ONE (17:13)
[2024-06-02] MEDS ORDERED: FENTANYL CITR 100 MCG/2 ML ONE ×2 (17:14→17:31)
[2024-06-02] MEDS ORDERED: NA CHLORIDE 0.9% 500 ML ONE (17:15)
[2024-06-02 17:20] LABS: Absolute Eosinophils 0.3 K/uL (0-0.5); Absolute Monocytes 0.9 K/uL (0.1-1.3); Absolute Neutrophil 6.3 K/uL (1.8-8.0); Basophils % 0.3 % (0-1.3); Eosinophils % 3.1 % (0-4.4); Hematocrit 32.4 % (36.0-45.0); Hemoglobin 10.8 g/dL (12.0-15.0); Lymphocytes % 11.7 % (15.3-44.8); MCH 29.7 pg (27.0-35.0); MCHC 33.3 g/dL (32.0-36.0); MCV 89.2 fL (80-100); MPV 8.5 fL (7.6-11.3); Monocytes % 10.9 % (3.3-12.3); Platelets 277 thou/uL (152-406); RBC Red Blood Cell Count 3.63 M/uL (3.86-4.86); Red Cell Distribution Width 14.8 % (12.1-15.2)
[2024-06-02 17:36] LABS: Albumin 2.3 g/dL (3.4-5.0); Albumin/Globulin Ratio 0.7 (1.1-1.8); Anion Gap 9.2 mEq/L (5.0-15.0); Bilirubin Total 0.4 mg/dL (0.2-1.0); Globulin 3.5 g/dL (2.3-3.5); Potassium 4.2 mEq/L (3.5-5.1); Protein, Total 5.8 g/dL (6.4-8.2)
[2024-06-02] MEDS ORDERED: NA CHLORIDE 0.9% 1,000 ML ONE (18:16)
[2024-06-02] MEDS ORDERED: HYDROMORPHONE HCL 0.5 MG/0.5 ML INJ ONE (18:16)
--- NOTE | 2024-06-02 18:16 | RAD REPORT ---
EXAMINATION: ONE VIEW CHEST XR CLINICAL INDICATION: Female, 83 years old.,COUGH TECHNIQUE: Frontal chest projection is submitted. Examination is limited by patient positioning and t echnique. COMPARISON: 01/02/2024 FINDINGS: The lungs are well inflated and clear. No pneumothorax or sizable effusion. The heart is normal in s ize. Mediastinal contours are unremarkable. IMPRESSION: No acute intrathoracic abnormalities.
[2024-06-02] MEDS ORDERED: METRONIDAZOLE 500mg IVPB 500 MG/100 ML BAG IV ONE (18:17)
[2024-06-02] MEDS ORDERED: CIPROFLOXACIN 400mg IV 400 MG/200 ML BAG IV ONE (18:17)
--- NOTE | 2024-06-02 18:58 | RAD REPORT ---
EXAMINATION: CT Abdomen Pelvis W Contrast CLINICAL INDICATION: Female, 83 years old. ABD PAIN TECHNIQUE: CT abdomen and pelvis was performed, after the administration of IV contrast, [facility] Axial, sagittal and coronal reconstructions were obtained. One or more of the following dose reduction techniques were used: Automated exposure control, adjustment of the mA and k V according to patient size, and iterative reconstruction. Unless otherwise specified, incidental findings do not require dedicated imaging follow-up. COMPARISON: 11/23/2023 FINDINGS: LOWER CHEST: The visualized lung bases are clear apart from trace right-sided pleural effusion. Mild pericardial effusion, progressive since the prior exam. LIVER: Normal in size and contour. No focal lesion. BILIARY SYSTEM: Status post cholecystectomy. SPLEEN: Normal size. No focal lesion. PANCREAS: No mass, ductal dilation, or ofelia-pancreatic fluid. ADRENALS: Normal; no mass. KIDNEYS: Normal size and contour. Stable prominence of the renal pelves, especially on the right. Tra nscortical left interpolar 1.8 cm cyst appears somewhat hyperdense compared to the prior exam, which may be related to hemorrhagic changes. URINARY BLADDER: Unremarkable. GASTROINTESTINAL TRACT: No evidence of free air, significant intra-abdominal free fluid, bowel obstru ction or abscess. Moderate to large stool burden within the rectal vault, and overall moderate stool burden along the ascending and transverse colon. Progressive presacral edema and fat stranding. No abnormal collections with attention to the perineal region. APPENDIX: Normal appendix. LYMPH NODES: No lymphadenopathy. MUSCULOSKELETAL: No acute or suspicious osseous abnormality. Stable multilevel degenerative changes w ith prominent inferior endplate Schmorl's node at L2. ADDITIONAL FINDINGS: None. IMPRESSION: Large stool burden within the rectal vault. Progressive presacral edema and fat stranding. Findings s uggesting stercoral proctitis. Trace right pleural effusion mild pericardial effusion. Stable prominence of the renal pelves, more so on the right, which may relate to retrograde reflux an d/or ureteral stricture. Other incidental findings as above..
--- NOTE | 2024-06-02 19:13 | ER ---
Nurse's Notes [facility] Name: Kate Love Age: 83 yrs Sex: Female : 1940 Arrival Date: 06/02/2024 Time: 16:25 Bed 15 Private MD: Diagnosis: Constipation;Left sided colitis with other complication-stercoral colitis;Retention of urine, unspecified-1 liter;Abdominal tenderness;Type 2 diabetes mellitus with hyperglycemia;Hypoglycemia, unspecified Presentation: 06/02 16:31 Chief complaint: Patient states: Sent by Dr. Mahmood's office for Hemorrhoid pain. ss Coronavirus screen: Client denies travel out of the [place] in the last 14 days. Ebola Screen: Patient denies exposure to infectious person. Patient denies travel to an Ebola-affected area in the 21 days before illness onset. Initial Sepsis Screen: Does the patient meet any 2 criteria? No. Patient's initial sepsis screen is negative. Does the patient have a suspected source of infection? No. Patient's initial sepsis screen is negative. Risk Assessment: Do you want to hurt yourself or someone else? Patient reports no desire to harm self or others. Onset of symptoms was May 29, 2024. 16:31 Method Of Arrival: Wheelchair ss 16:31 Acuity: AURELIA 3 ss Historical: - Allergies: 16:32 No Known Allergies; ss - PMHx: 16:32 Asthma; Hypertension; Transient cerebral ischemia; perforated rectum; Myocardial ss infarction; Hyperlipidemia; diabetes mellitus; cardiac stent x2; - PSHx: 16:32 Cholecystectomy; laminectomy; right \T\ left knee; right and left shoulder; Stented ss artery; - Immunization history:: Client reports receiving the 2nd dose of the Covid vaccine. - Infectious Disease History:: Denies. - Social history:: Smoking status: Patient denies any tobacco usage or history of. - Family history:: not pertinent. - Hospitalizations: : No recent hospitalization is reported. Screenin:45 [facility] ED Fall Risk Assessment (Adult) History of falling in the last 3 months, me1 including since admission No falls in past 3 months (0 pts) Confusion or Disorientation No (0 pts) Intoxicated or Sedated No (0 pts) Impaired Gait No (0 pts) Mobility Assist Device Used No (0 pt) Altered Elimination No (0 pt) Score/Fall Risk Level 0 - 2 = Low Risk Maintained a safe environment, Provided non-skid footwear, Hourly rounding (assess needs \T\ fall precautionary measures) done. Abuse screen: Denies threats or abuse. Nutritional screening: No deficits noted. Tuberculosis screening: No symptoms or risk factors identified. Assessment: 16:45 General: Appears uncomfortable, well groomed, well developed, well nourished, Behavior me1 is cooperative, appropriate for age, anxious, Reports Sent by Dr Mahmood's office for hemorrhoid pain. Pain: Complains of pain in rectal Pain does not radiate. Pain currently is 9 out of 10 on a pain scale. Quality of pain is described as sharp, throbbing, Pain began gradually, Is continuous. Neuro: Level of Consciousness is awake, alert, obeys commands, Oriented to person, place, time, situation, Appropriate for age. Cardiovascular: Patient's skin is warm and dry. Respiratory: Airway is patent Respiratory effort is even, unlabored, Respiratory pattern is regular, symmetrical. GI: Reports hemorrhoids, incontinence, hemorroid pain. : No signs and/or symptoms were reported regarding the genitourinary system. EENT: No signs and/or symptoms were reported regarding the EENT system. Derm: Skin is intact, is healthy with good turgor, Skin is pink, warm \T\ dry. Musculoskeletal: No signs and/or symptoms reported regarding the musculoskeletal system. Vital Signs: 16:31 BP 119 / 54; Pulse 72; Resp 18; Temp 97.9(TE); Pulse Ox 99% ; Weight 60.33 kg; Height 5 ss ft. 5 in. ; Pain 10/10; 17:00 BP 116 / 46; Pulse 68; Resp 16; Pulse Ox 94% on R/A; me1 18:00 BP 134 / 62; Pulse 67; Resp 18; Pulse Ox 96% ; me1 19:00 BP 134 / 43; Pulse 64; Resp 16; Pulse Ox 96% ; me1 19:06 Pain 3/10; me1 20:00 BP 134 / 50; Pulse 58; Resp 16; Temp 97.9; Pulse Ox 98% ; me1 21:00 BP 137 / 63; Pulse 59; Resp 16; Pulse Ox 97% ; me1 16:31 Body Mass Index 22.13 (60.33 kg, 165.1 cm) ss 16:31 Pain Scale: Adult ss 19:06 Pain Scale: Adult ct1 ED Course: 16:28 Patient arrived in ED. mr 16:32 Triage completed. ss 16:32 Arm band placed on right wrist. ss 16:33 Miguel Dumont MD is Attending Physician. darline 16:43 Blessing Clement, RN is Primary Nurse. me1 16:45 Patient has correct armband on for positive identification. Bed in low position. Call me1 light in reach. Side rails up X2. Provided Education on: POC. Verbalized understanding.. Client placed on continuous cardiac and pulse oximetry monitoring. NIBP monitoring applied. Pulse ox on. NIBP on. 16:45 No provider procedures requiring assistance completed. me1 17:10 Initial lab(s) drawn, by ct, sent to lab. Inserted saline lock: 22 gauge in right ct1 forearm, using aseptic technique. 17:11 Comprehensive Metabolic Panel Sent. me1 17:11 CBC with Diff Sent. me1 17:13 Chest Single View XRAY In Process Unspecified. EDMS 18:25 CT Abd/Pelvis - IV Contrast Only In Process Unspecified. EDMS 19:11 Joao Paz MD is Hospitalizing Provider. [facility] 19:44 Lactate w/ 2H reflex if indic. Sent. me1 19:44 Rachel cath inserted, using sterile technique, [address], balloon inflated, to ct1 gravity drainage, urine specimen collected. returned clear yellow urine. Patient tolerated well. 21:30 Patient admitted, IV remains in place. me1 Administered Medications: 17:20 Drug: NS 0.9% IV 500 ml 500 ml IV at 1 bolus once; to be given as a bolus over 30 me1 minutes Volume: 500 ml; Route: IV; Rate: 1 bolus; Site: right antecubital; 18:12 Follow up: Response: No adverse reaction; IV Status: Completed infusion; IV Intake: me1 500ml 17:20 Drug: fentaNYL (PF) IVP 25 mcg IVP once Route: IVP; Site: right forearm; me1 17:59 Follow up: Response: No adverse reaction; Pain is unchanged, physician notified me1 17:20 Drug: Ondansetron IVP 4 mg IVP once; over 2 minutes Route: IVP; Site: right forearm; me1 17:59 Follow up: Response: No adverse reaction; Nausea is decreased me1 17:40 Drug: fentaNYL (PF) IVP 25 mcg IVP once Route: IVP; Site: right forearm; me1 18:11 Follow up: Response: No adverse reaction; Pain is unchanged, physician notified me1 18:32 Drug: metroNIDAZOLE IVPB 500 mg 100 ml IVPB at 200 ml/hr once over 30 mins Volume: 100 me1 ml; Route: IVPB; Rate: 200 ml/hr; Infused Over: 30 mins; Site: right forearm; 19:43 Follow up: Response: No adverse reaction; IV Status: Completed infusion; IV Intake: me1 100ml 18:32 Drug: HYDROmorphone IVP 0.5 mg IVP once Route: IVP; Site: right forearm; me1 19:06 Follow up: Pain 310 Adult; Response: No adverse reaction; Pain is decreased me1 18:32 Drug: NS 0.9% IV 500 ml 500 ml IV at 1 bolus once; to be given as a bolus over 30 me1 minutes Volume: 500 ml; Route: IV; Rate: 1 bolus; Site: right forearm; 19:05 Follow up: Response: No adverse reaction; IV Status: Completed infusion; IV Intake: me1 500ml 19:06 Drug: NS 0.9% IV 500 ml 500 ml IV at 651068 ml/hr once; to be given as a bolus over 30 me1 minutes Volume: 500 ml; Route: IV; Rate: 265891 ml/hr; Site: right forearm; 20:07 Follow up: IV Status: Infusion continued upon admission me1 19:43 Drug: Dulcolax IN Suppository 10 mg IN once Route: IN; me1 20:06 Follow up: Response: No adverse reaction me1 19:44 Drug: Ciprofloxacin IVPB 400 mg 200 ml IVPB once over 60 mins Volume: 200 ml; Route: me1 IVPB; Infused Over: 60 mins; Site: right forearm; 20:05 Follow up: IV Status: Infusion continued upon admission me1 20:49 Follow up: Response: No adverse reaction; IV Status: Completed infusion; IV Intake: me1 200ml 19:44 Drug: Rocephin IV 2 grams IV at per protocol once; Given slow IV push per pharmarcy me1 instructions Route: IV; Rate: per protocol; Site: right forearm; 19:45 Follow up: Response: No adverse reaction; IV Status: Completed infusion me1 20:00 Drug: D50W IVP 25 ml IVP once; (1/2 amp repeat if needed Route: IVP; Site: right me1 forearm; 20:06 Follow up: Response: No adverse reaction me1 20:12 Not Given (pain managed with one dose of dilaudid.): hydromorphone0.5 mg IVP once me1 21:02 Drug: Mucomyst - Acetylcysteine PO 600 mg PO once Route: PO; me1 21:12 Follow up: Response: No adverse reaction me1 Medication: 16:45 VIS not applicable for this client. me1 Intake: 18:12 IV: 500ml; Total: 500ml. me1 19:05 IV: 500ml; Total: 1000ml. me1 19:43 IV: 100ml; Total: 1100ml. me1 20:49 IV: 200ml; Total: 1300ml. me1 Outcome: 19:13 Decision to Hospitalize by Provider. darline 21:30 Admitted to Med/surg accompanied by tech, via stretcher, room 405, with chart, Report me1 called to faxed, receipt confirmed with [facility] 21:30 Condition: stable 21:30 Instructed on the need for admit, 21:31 Patient left the ED. me1 Signatures: Dispatcher [employer] Miguel Lugo MD MD cha Rivera, Mary, Reg Reg mr Lani Chaves, Blessing Bowling RN, RN RN me1 Corrections: (The following items were deleted from the chart) 20:04 20:04 D50W IVP 25 ml IVP in right forearm me1 me1
--- NOTE | 2024-06-02 19:13 | EDPHYS ---
Physician Documentation [facility] Name: Kate Love Age: 83 yrs Sex: Female : 1940 Arrival Date: 06/02/2024 Time: 16:25 Bed 15 Private MD: AMANDA Physician Miguel Dumont HPI: 06/02 18:17 This 83 yrs old Female presents to ER via Wheelchair with complaints of darline Hemorrhoids. 18:17 The patient presents with abdominal pain in the upper abdomen, in the lower abdomen, darline abdominal distention in the upper abdomen, in the lower abdomen. Onset: The symptoms/episode began/occurred 1 week(s) ago. Onset: The symptoms/episode began/occurred 1 week(s) ago. Modifying factors: The symptoms are alleviated by nothing, the symptoms are aggravated by movement, pressure. The symptoms are described as constant, crampy. Modifying factors: The symptoms are alleviated by nothing. Severity of pain: At its worst the pain was moderate severe. Historical: - Allergies: 16:32 No Known Allergies; ss - PMHx: 16:32 Asthma; Hypertension; Transient cerebral ischemia; perforated rectum; Myocardial ss infarction; Hyperlipidemia; diabetes mellitus; cardiac stent x2; - PSHx: 16:32 Cholecystectomy; laminectomy; right \T\ left knee; right and left shoulder; Stented ss artery; - Immunization history:: Client reports receiving the 2nd dose of the Covid vaccine. - Infectious Disease History:: Denies. - Social history:: Smoking status: Patient denies any tobacco usage or history of. - Family history:: not pertinent. - Hospitalizations: : No recent hospitalization is reported. ROS: 18:15 Constitutional: Negative for fever, chills, and weight loss, Eyes: Negative for injury, darline pain, redness, and discharge, ENT: Negative for injury, pain, and discharge, Neck: Negative for injury, pain, and swelling, Cardiovascular: Negative for chest pain, palpitations, and edema, Respiratory: Negative for shortness of breath, cough, wheezing, and pleuritic chest pain, Back: Negative for injury and pain, : Negative for injury, bleeding, discharge, and swelling, MS/Extremity: Negative for injury and deformity, Skin: Negative for injury, rash, and discoloration, Neuro: Negative for headache, weakness, numbness, tingling, and seizure, Psych: Negative for depression, anxiety, suicide ideation, homicidal ideation, and hallucinations, Allergy/Immunology: Negative for hives, rash, and allergies, Endocrine: Negative for neck swelling, polydipsia, polyuria, polyphagia, and marked weight changes, Hematologic/Lymphatic: Negative for swollen nodes, abnormal bleeding, and unusual bruising, 18:15 Abdomen/GI: Positive for abdominal pain, constipation, abdominal cramps, abdominal distension, rectal pain, rectal bleeding, of the right lower quadrant and left lower quadrant, 18:20 Abdomen/GI: Positive for darline Exam: 18:20 Constitutional: This is a well developed, well nourished patient who is awake, alert, darline and in no acute distress. Head/Face: Normocephalic, atraumatic. Eyes: Pupils equal round and reactive to light, extra-ocular motions intact. Lids and lashes normal. Conjunctiva and sclera are non-icteric and not injected. Cornea within normal limits. Periorbital areas with no swelling, redness, or edema. ENT: Nares patent. No nasal discharge, no septal abnormalities noted. Tympanic membranes are normal and external auditory canals are clear. Oropharynx with no redness, swelling, or masses, exudates, or evidence of obstruction, uvula midline. Mucous membranes moist. Neck: Trachea midline, no thyromegaly or masses palpated, and no cervical lymphadenopathy. Supple, full range of motion without nuchal rigidity, or vertebral point tenderness. No Meningismus. Chest/axilla: Normal chest wall appearance and motion. Nontender with no deformity. No lesions are appreciated. Cardiovascular: Regular rate and rhythm with a normal S1 and S2. No gallops, murmurs, or rubs. Normal PMI, no JVD. No pulse deficits. Respiratory: Lungs have equal breath sounds bilaterally, clear to auscultation and percussion. No rales, rhonchi or wheezes noted. No increased work of breathing, no retractions or nasal flaring. Back: No spinal tenderness. No costovertebral tenderness. Full range of motion. Female : Normal external genitalia. Skin: Warm, dry with normal turgor. Normal color with no rashes, no lesions, and no evidence of cellulitis. MS/ Extremity: Pulses equal, no cyanosis. Neurovascular intact. Full, normal range of motion., bilateral aka Neuro: Awake and alert, GCS 15, oriented to person, place, time, and situation. Cranial nerves II-XII grossly intact. Motor strength 5/5 in all extremities. Sensory grossly intact. Cerebellar exam normal. Normal gait. Psych: Awake, alert, with orientation to person, place and time. Behavior, mood, and affect are within normal limits. 18:20 Abdomen/GI: Inspection: distension, that is mild, that is moderate, Bowel sounds: active, Palpation: moderate abdominal tenderness, in the left upper quadrant, right lower quadrant and left lower quadrant, Rectal exam: rectal tone poor, Stool: TRACE BLOOD, swelling, tenderness, that is moderate, fecal impaction, that is moderate, Liver: no appreciated palpable abnormalities, Hernia: not appreciated, 20:30 ECG was reviewed by the Attending Physician. [facility] Vital Signs: 16:31 BP 119 / 54; Pulse 72; Resp 18; Temp 97.9(TE); Pulse Ox 99% ; Weight 60.33 kg; Height 5 ss ft. 5 in. ; Pain 10/10; 17:00 BP 116 / 46; Pulse 68; Resp 16; Pulse Ox 94% on R/A; me1 18:00 BP 134 / 62; Pulse 67; Resp 18; Pulse Ox 96% ; me1 19:00 BP 134 / 43; Pulse 64; Resp 16; Pulse Ox 96% ; me1 19:06 Pain 3/10; me1 20:00 BP 134 / 50; Pulse 58; Resp 16; Temp 97.9; Pulse Ox 98% ; me1 21:00 BP 137 / 63; Pulse 59; Resp 16; Pulse Ox 97% ; me1 16:31 Body Mass Index 22.13 (60.33 kg, 165.1 cm) 16:31 Pain Scale: Adult ss 19:06 Pain Scale: Adult sd1 MDM: 16:33 Medical Screening Exam initiated [facility] 18:22 Differential diagnosis: hemorrhoids, diverticulitis, GI Bleed, Mesenteric ischemia or darline infarction, non-specific abd pain, pancreatitis, Pyelonephritis, Ureterolithiasis, urinary tract infection. Data reviewed: vital signs, nurses notes, lab test result(s), radiologic studies, CT scan. Consideration of Admission/Observation Patient was admitted/placed on observation. Escalation of care including admission/observation considered. I considered the following discharge prescriptions or medication management in the emergency department Medications were administered in the Emergency Department. See MAR. Independent interpretation of the following test(s) in the Emergency Department CT Scan: My interpretation is CT ABD/PEL. Test considered but Not performed: Ultrasound NO ABD USG. Historians other than the Patient: Spouse/Significant Other: WELL INFORMED. Care significantly affected by the following chronic conditions: Hypertension, TIA, PERFORATED RECTUM, CAD, CA, ASTHMA. Counseling: I had a detailed discussion with the patient and/or guardian regarding the historical points, exam findings, and any diagnostic results supporting the discharge/admit diagnosis, lab results, radiology results, the need for further work-up and treatment in the hospital. 06/02 16:36 Order name: CBC with Diff; Complete Time: 18:01 [facility] 06/02 16:36 Order name: Comprehensive Metabolic Panel; Complete Time: 18:01 [facility] 06/02 16:36 Order name: Urinalysis w/ reflexes; Complete Time: 20:03 [facility] 06/02 18:03 Order name: Lipase; Complete Time: 18:40 [facility] 06/02 19:13 Order name: Lactate w/ 2H reflex if indic.; Complete Time: 20:17 [facility] 06/02 20:01 Order name: Glucose, Ancillary Testing; Complete Time: 20:03 [facility] 06/02 16:36 Order name: Chest Single View XRAY; Complete Time: 18:40 [facility] 06/02 16:36 Order name: CT Abd/Pelvis - IV Contrast Only; Complete Time: 18:59 [facility] 06/02 19:20 Order name: CONS Physician Consult; Complete Time: 20:08 [facility] 06/02 16:36 Order name: EKG - Nurse/Tech; Complete Time: 21:16 [facility] 06/02 18:45 Order name: Rachel; Complete Time: 19:43 [facility] 06/02 18:45 Order name: Rachel Leg Bag; Complete Time: 19:44 [facility] 06/02 20:03 Order name: PO challenge: boost/oj; Complete Time: 20:04 [facility] EC:30 Rate is 56 beats/min. Rhythm is regular. QRS [place] is Normal. [place] interval is normal. QRS darline interval is normal. QT interval is normal. No Q waves. T waves are Normal. No ST changes noted. Clinical impression: Sinus bradycardia. Interpreted by me. Reviewed by me. Administered Medications: 17:20 Drug: NS 0.9% IV 500 ml 500 ml IV at 1 bolus once; to be given as a bolus over 30 me1 minutes Volume: 500 ml; Route: IV; Rate: 1 bolus; Site: right antecubital; 18:12 Follow up: Response: No adverse reaction; IV Status: Completed infusion; IV Intake: me1 500ml 17:20 Drug: fentaNYL (PF) IVP 25 mcg IVP once Route: IVP; Site: right forearm; me1 17:59 Follow up: Response: No adverse reaction; Pain is unchanged, physician notified me1 17:20 Drug: Ondansetron IVP 4 mg IVP once; over 2 minutes Route: IVP; Site: right forearm; me1 17:59 Follow up: Response: No adverse reaction; Nausea is decreased me1 17:40 Drug: fentaNYL (PF) IVP 25 mcg IVP once Route: IVP; Site: right forearm; me1 18:11 Follow up: Response: No adverse reaction; Pain is unchanged, physician notified me1 18:32 Drug: metroNIDAZOLE IVPB 500 mg 100 ml IVPB at 200 ml/hr once over 30 mins Volume: 100 me1 ml; Route: IVPB; Rate: 200 ml/hr; Infused Over: 30 mins; Site: right forearm; 19:43 Follow up: Response: No adverse reaction; IV Status: Completed infusion; IV Intake: me1 100ml 18:32 Drug: HYDROmorphone IVP 0.5 mg IVP once Route: IVP; Site: right forearm; me1 19:06 Follow up: Pain 3/10 Adult; Response: No adverse reaction; Pain is decreased me1 18:32 Drug: NS 0.9% IV 500 ml 500 ml IV at 1 bolus once; to be given as a bolus over 30 me1 minutes Volume: 500 ml; Route: IV; Rate: 1 bolus; Site: right forearm; 19:05 Follow up: Response: No adverse reaction; IV Status: Completed infusion; IV Intake: me1 500ml 19:06 Drug: NS 0.9% IV 500 ml 500 ml IV at 727483 ml/hr once; to be given as a bolus over 30 me1 minutes Volume: 500 ml; Route: IV; Rate: 318634 ml/hr; Site: right forearm; 20:07 Follow up: IV Status: Infusion continued upon admission me1 19:43 Drug: Dulcolax [place] Suppository 10 mg [place] once Route: [place]; me1 20:06 Follow up: Response: No adverse reaction me1 19:44 Drug: Ciprofloxacin IVPB 400 mg 200 ml IVPB once over 60 mins Volume: 200 ml; Route: me1 IVPB; Infused Over: 60 mins; Site: right forearm; 20:05 Follow up: IV Status: Infusion continued upon admission me1 20:49 Follow up: Response: No adverse reaction; IV Status: Completed infusion; IV Intake: me1 200ml 19:44 Drug: Rocephin IV 2 grams IV at per protocol once; Given slow IV push per pharmarcy me1 instructions Route: IV; Rate: per protocol; Site: right forearm; 19:45 Follow up: Response: No adverse reaction; IV Status: Completed infusion me1 20:00 Drug: D50W IVP 25 ml IVP once; (1/2 amp repeat if needed Route: IVP; Site: right me1 forearm; 20:06 Follow up: Response: No adverse reaction me1 20:12 Not Given (pain managed with one dose of dilaudid.): hydromorphone0.5 mg IVP once me1 21:02 Drug: Mucomyst - Acetylcysteine PO 600 mg PO once Route: PO; me1 21:12 Follow up: Response: No adverse reaction me1 Disposition Summary: 06/02/24 19:13 Hospitalization Ordered Notes: Hospitalization Status: Inpatient Admission darline Provider: Joao Paz cha [facility] darline Condition: Fair darline Problem: new darline Symptoms: have improved darline Bed/Room Type: Standard darline Room Assignment: 405(06/02/24 19:31) rv1 Diagnosis - Constipation darline - Left sided colitis with other complication - stercoral colitis darline - Abdominal tenderness darline - Retention of urine, unspecified - 1 liter(06/02/24 19:46) darline - Type 2 diabetes mellitus with hyperglycemia darline - Hypoglycemia, unspecified darline Forms: - Medication Reconciliation Form darline - SBAR form darline - Leadership Thank You Letter darline Signatures: Dispatcher MedHoMiguel Corona MD MD cha Blanchard, Shelby, RN RN Kate Reilly rv1 Blessing Clement RN RN me1 Corrections: (The following items were deleted from the chart) 16:37 16:37 Abdomen Pelvis W Con+CT.RAD.BRZ ordered. EDMS EDMS 19:31 19:13 darline rv1 19:46 19:13 Retention of urine, unspecified darline gregorio
[2024-06-02] MEDS ORDERED: CEFTRIAXONE 2000 MG/VIAL ONE (19:18)
[2024-06-02] MEDS ORDERED: BISACODYL 10 MG RECTAL SUPP ONE (19:18)
[2024-06-02 19:41] LABS: Specific Gravity 1.016 (1.005-1.030); Sqamous Epithelial None Seen /HPF (None Seen); Urine Bacteria None Seen /HPF (<20); Urine Bilirubin NEGATIVE (Negative); Urine Blood Negative (Negative); Urine Clarity Clear (Clear); Urine Color Light-Yellow (Yellow); Urine Culture Reflex Order NOT NEEDED; Urine Glucose NEGATIVE (Negative); Urine Ketones NEGATIVE (Negative); Urine Microscopic Reflex YN ORDER UMIC; Urine Mucus Slight /HPF (None Seen); Urine Nitrite NEGATIVE (Negative); Urine Protein 1+ (Negative); Urine RBC <5 /HPF (None Seen); Urine Urobilinogen Normal (Normal); Urine WBC <5 /HPF (<5); Urine WBC Clump Rare /HPF (None Seen)
[2024-06-02] MEDS ORDERED: D50W 25 GM/50 ML SYRINGE IV ONE (19:51)
[2024-06-02] MEDS ORDERED: ACETYLCYST 6,000 MG/30 ML VIAL ONE (20:56)
[2024-06-02] MEDS ORDERED: ACETAMINOPHEN 500 MG TAB PO PRN (22:02)
[2024-06-02] MEDS: LACTULOSE 20 GM/30 ML UCUP PO SCH (22:36)
[2024-06-02] MEDS: D5 0.9 NS 1,000 ML IV SCH (22:36)
[2024-06-02] MEDS: HYDROMORPHONE HCL 0.5 MG/0.5 ML INJ IV PRN (22:41)
[2024-06-02] MEDS: FAMOTIDINE 20 MG/2 ML VIAL IV ONE (23:35)
[2024-06-02] MEDS: METRONIDAZOLE 500mg IVPB 500 MG/100 ML BAG IV SCH (23:36)
[2024-06-03 01:35] VITALS: BMI 22.6
[2024-06-03 06:06] LABS: Absolute Eosinophils 0.2 K/uL (0-0.5); Absolute Monocytes 1.1 K/uL (0.1-1.3); Absolute Neutrophil 8.1 K/uL (1.8-8.0); Basophils % 0.4 % (0-1.3); Eosinophils % 1.8 % (0-4.4); Hematocrit 32.8 % (36.0-45.0); Hemoglobin 10.3 g/dL (12.0-15.0); Lymphocytes % 9.6 % (15.3-44.8); MCH 28.6 pg (27.0-35.0); MCHC 31.5 g/dL (32.0-36.0); MCV 90.9 fL (80-100); MPV 9.2 fL (7.6-11.3); Monocytes % 10.7 % (3.3-12.3); Neutrophils % 77.5 % (41.7-73.7); Platelets 275 thou/uL (152-406); RBC Red Blood Cell Count 3.61 M/uL (3.86-4.86); Red Cell Distribution Width 14.8 % (12.1-15.2)
[2024-06-03 06:22] LABS: ALT/SGPT 24 U/L (13-56); AST/SGOT 23 U/L (15-37); Albumin 1.9 g/dL (3.4-5.0); Albumin/Globulin Ratio 0.5 (1.1-1.8); Alkaline Phosphatase 86 U/L (45-117); Anion Gap 10.4 mEq/L (5.0-15.0); BUN Blood Urea Nitrogen 53 mg/dL (7-18); Bicarbonate 26 mEq/L (21-32); Bilirubin Total 0.2 mg/dL (0.2-1.0); Globulin 3.5 g/dL (2.3-3.5); Glomerular Filtration Rate 60 ml/min (=/>90); Glucose Level 285 mg/dL (74-106); Lipase 30 U/L (13-75); Potassium 4.4 mEq/L (3.5-5.1); Protein, Total 5.4 g/dL (6.4-8.2); Sodium Level 140 mEq/L (136-145)
[2024-06-03 06:23] LABS: Bilirubin Direct < 0.2 mg/dL (0-0.2)
[2024-06-03] MEDS ORDERED: FLU (Fluarix Triv) TS24-25(6MOS UP)/PF 45 MCG/0.5 ML Syringe IM ONE (07:45)
[2024-06-03] MEDS: FLEET ENEMA ADULT PR ONE (08:11)
[2024-06-03] MEDS: NA CHLORIDE 0.9% 1,000 ML IV SCH (09:00)
[2024-06-03] MEDS: HYDROCORTISONE 2.5% PR PRN (09:53)
[2024-06-03] MEDS: BISACODYL 10 MG RECTAL SUPP PR SCH (09:53)
[2024-06-03] MEDS: FAMOTIDINE 20 MG/2 ML VIAL IV SCH (09:53)
[2024-06-03] MEDS: CIPROFLOXACIN 400mg IV 400 MG/200 ML BAG IV SCH (09:54)
[2024-06-03] MEDS: ACETYLCYST 20% 800 MG/4 ML VIAL PO SCH (09:56)
[2024-06-03] MEDS: INSULIN REGULAR (HUMAN) 100 UNIT/ML SQ SCH (10:01)
--- NOTE | 2024-06-03 11:56 | EKG ---
Test Date: 2024-06-02 Test Time: 20:19:32 Insurance Sales Assistant: MICHELLE MEASUREMENT RESULTS: Intervals: Rate: 56 SD: 172 QRSD: 98 QT: 470 QTc: 453 [place]: P: 85 SD: 172 QRS: 71 T: 73 INTERPRETIVE STATEMENTS: Sinus bradycardia Otherwise normal ECG Compared to ECG 02/17/2024 15:07:34 Sinus rhythm no longer present Electronically Signed On 06-03-24 11:55:40 COLLECTIONS ANALYST by Junior Cali
[2024-06-03] MEDS: FLU (Fluarix Triv) TS24-25(6MOS UP)/PF 45 MCG/0.5 ML Syringe IM ONE (14:17)
[2024-06-03] MEDS ORDERED: HYDROMORPHONE HCL 1 MG/ML INJ IV PRN (15:03)
[2024-06-03] MEDS: HYDROMORPHONE HCL 1 MG/ML INJ IV PRN (18:40)
[2024-06-03] MEDS: D5 0.9 NS 1,000 ML IV SCH (19:55)
[2024-06-03] MEDS: ONDANSETRON 4 MG/2 ML VIAL IV PRN (19:55)
[2024-06-03] MEDS: HYDROMORPHONE HCL 0.5 MG/0.5 ML INJ IV PRN (21:26)
[2024-06-03] MEDS: cloNIDine HCL 0.1 MG TAB PO SCH (22:27)
[2024-06-03] MEDS: carvediloL 12.5 MG TAB PO SCH (22:27)
--- NOTE | 2024-06-03 23:53 | CON ---
Date of Consultation: 06/03/2024 Reason For Consultation: Severe rectal pain with abnormal CT scan and inflammation of the rectum. History Of Present Illness: The patient is an 83-year-old white female with history of diabetes, hyp ertension, hyperlipidemia, coronary artery disease, status post NM, 2 cardiac stents, asthma, and rec siria perforation in the past. The patient presented to the hospital with severe rectal pain / and came in for further evaluation. CT scan revealed increased stool throughout the colon and in rectum with inflammation all around the rectum. This is in light of the fact that she has a his tory of rectal perforation in the past. She has chronic problems with constipation. Past Medical History: Significant for constipation, perforated rectum in the past, diabetes, hyperte nsion, hyperlipidemia, coronary artery disease, status post NM, 2 cardiac stents, TIA (transient isch emic attack), asthma, cholecystectomy, laminectomy. Past Surgical History: Left total knee, bilateral shoulder surgeries, and peripheral vascular stent placement by chart review. Allergies: NKDA. Social History: She is , 2 children. No tobacco. No alcohol. Father at 93 of old age. Mother from second mitral valve replacement that went "bad." Review of Systems: The patient has constipation, severe rectal pain, incontinence at times. She denies any significant blood or melena, nausea, vomiting, chest pain, shortness of breath, seizure, syncope, muscle aches, j oint aches, backaches, depression. She does have some anxiety currently with in current a dmission. She feels better on pain medicines. Her rectal pain has largely resolved on pain medicine in hospital. Physical Examination: Vital Signs: She is 5 feet 5 inches, 136 pounds, BMI 23.6 kg/sq m. General: Elderly female, lying in bed, in no acute distress currently. HEENT: Normocephalic, atraumatic. Anicteric. Pupils equal, round, and reactive to light. Extraocu lar movements are intact. Oropharynx is clear. Neck: Supple. No masses. Respirations: Clear to auscultation bilaterally. Cardiac: Regular rate and rhythm. No gallops or rubs. Abdomen: Positive bowel sounds. Soft, nontender, nondistended. No hepatosplenomegaly. Extremities: No clubbing, cyanosis, or edema. 2+ pulses. Neuro: Alert and oriented x3. Grossly nonfocal. 5/5 motor. Sensation is intact to light touch. Rectal: Performed in the office, patient has severe rectal pain with moderate external hemorrhoids, painful to touch with stool. This is easily coming out of the rectal vault, but much more inside it appears per CT scan report. Laboratory Data: The patient has a white count of 10.4 from 8.6 yesterday; hemoglobin of 10.3, stabl e; hematocrit 33.8; MCV of 91; platelet count of 275; polys of 77.5; lymphocytes 10; monocytes 11; eo sinophils 2; basophils 0.4. The patient's sodium 140, potassium 4.4, chloride 108, bicarb 26, BUN of 53, creatinine of 0.95, glucose 285, calcium 7.8. Total bilirubin 0.2, direct bilirubin less than 0 .2, AST 23, ALT 24, alkaline phosphatase 86, total protein 5.4, albumin 1.9, lipase 30. UA with dist al 1+ total protein, otherwise negative. CT reveals stool throughout the colon, mainly in the transv erse, ascending colon, and also the rectum. Rectum is packed with stool it appears with inflammation all around the rectum on CT consistent with possible stercoral proctitis per report, which is basica lly inflamed rectum from too much stool. Impression: 1.Severe rectal pain due to proctitis from too much stool in rectum with possible stercoral proctiti s with possible ulcer with history of rectal perforation in the past versus hemorrhoids, which are al so painful on exam versus obstipation or other. 2.Neuropathy. Pain relieved in hospital with pain medication and feels much better. Plan is for Triny modi to take the patient to the operating room in the morning and to evaluate for possible ulcer or other pathologies leading to severe pain, possible even early perforation signs. 3.Ischemia. CT of course revealed increased stool throughout the colon and rectum with inflammation around the rectum is noted. 4.History of diabetes. 5.Hypertension. 6.Hyperlipidemia. 7.Coronary artery disease, status post NM, cardiac stent x2. 8.Peripheral vascular disease with stent. 9.Transient ischemic attack. 10.Asthma. 11.Cholecystectomy. 12.Laminectomy. 13.Left total knee surgery and bilateral shoulder surgery. Recommendations: 1.Continue laxative therapy. Continue p.r.n. pain medicines. 2.Await OR evaluation in a.m. MARIANA/BRIAN Voice ID: [id number] Report ID: [id number]
--- NOTE | 2024-06-04 06:05 | HP ---
Date of Admission: 06/03/2024 Chief Complaint: Abdominal pain and constipation. History Of Present Illness: This is an 83-year-old very pleasant female patient with multiple comorbidities, came into emergency room with 3 to 4 days' history of lower abdominal pain and constipation. Denies any nausea, vomiting, fever, chills. Denies any blood in stool. After she was evaluated in the emergency room, I was contacted requesting admission to hospital for fecal impaction and stercoral proctitis problem. When I saw the patient this morning, she was lying in bed on her right side, appearing visibly uncomfortable because of her constipation and rectal pain. Allergies: TO CIPRO CAUSING HALLUCINATION AND CONFUSION. Medications: [place] 5 mg 3 times a day as needed for pain, aspirin 81 mg daily, carvedilol 25 mg takes 2 tablets 2 times a day, vitamin D3 1000 units daily, Cinacalcet 30 mg tablet daily, clonidine 0.3 mg 3 times a day, clopidogrel 75 mg daily, ezetimibe 10 mg daily, folic acid 1 mg daily, gabapentin 100 mg 2 times a day, Tresiba insulin daily, Jentadueto XR 10/999 mg 1 tablet daily, valsartan 320 mg daily, atorvastatin 40 mg daily. Review of Systems: GI: As mentioned above. Musculoskeletal: Chronic back pain. All other systems reviewed and negative. Past Medical History: Significant for osteoarthritis at multiple sites, hypertension, hyperlipidemia, coronary artery disease, diverticulosis, type 2 diabetes mellitus with diabetic neuropathy, chronic diastolic heart failure, diabetes mellitus with peripheral vascular disease, depression, chronic kidney disease stage IIIA, vitamin D deficiency, history of myocardial infarction in 2019, carotid artery stenosis, coronary artery disease, hyperparathyroidism, gastroesophageal reflux disease. Past Surgical History: Tonsillectomy, coronary artery angioplasty with stent placement x2 for STEMI in December 14, 2019, back surgery, cervical spine surgery, shoulder and knee surgery. Family History: Father , had COPD. Mother , had diabetes, heart disease. Social History: Negative for smoking. Use of alcohol, daily, 2 drinks a day. Physical Examination: Vital Signs: Temperature 96.9, pulse 62, respiratory rate 17, blood pressure 159/69, oxygen saturation 97%. Height 5 feet 5 inches, weight 136 pounds. General: Awake, alert, oriented, not in distress. HEENT: Head atraumatic, normocephalic. Conjunctivae nonerythematous. Sclerae white. Mouth, no thrush or edema noted. Ears/Nose, no mass, lesion, discharge noted. Neck: Supple. No JVD, lymph nodes, bruit, thyromegaly noted. Lungs: Bilateral good equal air entry. Clear to auscultation. No rhonchi. No rales. Heart: Normal heart sounds, no murmur or gallop. Abdomen: Soft. Bowel sounds normal. No distention, no guarding, no rigidity, but the patient has significant tenderness all across the lower abdomen. No rebound tenderness. Extremities: No leg edema. No calf tenderness. Skin: No rash, ulcer, cellulitis. Lymphatics: No lymph node enlargement in neck, supraclavicular, infraclavicular region. Neuro: No focal neurological deficit. Chest: Unremarkable. External Genitalia: Deferred. Rectal: When the patient was in the right lateral position, I examined her buttock area and the patient had soft stool present. Did not attempt to do rectal exam. There was no evidence of any blood. Stool was lightly greenish in color. Laboratory Data: Upon admission, white count 8.6, hemoglobin 10.8, platelets 277 and today white count 10.4, hemoglobin 10.3, platelets 275. Urinalysis normal. Upon admission, chemistry 140, potassium 4.2, chloride 107, bicarb 28, BUN 62, creatinine 1.19, glucose 80. Liver function tests normal. Lipase 47 and today sodium 140, potassium 4.4, chloride 108, bicarb 26, BUN 53, creatinine 0.95, glucose 285. Liver function tests normal. Lipase 30. Chest x-ray, no acute changes. CAT scan of the abdomen and pelvis shows presence of large amount of stool in the rectum with presence of presacral edema and fat stranding in the surrounding area. Impression: 1. Stercoral proctitis. 2. Fecal impaction. 3. Volume depletion. 4. Coronary artery disease. 5. Hypertension. 6. Hyperlipidemia. 7. Diabetes mellitus with diabetic peripheral neuropathy. 8. Diabetes mellitus with peripheral vascular disease. 9. Chronic diastolic heart failure. 10. Osteoarthritis, multiple sites. 11. Hyperparathyroidism. 12. Gastroesophageal reflux disease. 13. Diverticulosis. 14. Depression. 15. Chronic kidney disease stage IIIA. Plan: Admit the patient to hospital for further evaluation and management of this problem. The patient is appropriate for inpatient and is expected to spend 2 midnights in hospital. The patient was started on clear liquid diet for this stercoral colitis problem and we will try to address this constipation problem with Dulcolax suppository. Because of the pain, the patient is not allowing Fleet enema. Lactulose was ordered and we will give empiric antibiotic which is Levaquin and metronidazole per order. General surgeon, Dr. Nicolas was consulted and I have discussed details with him and the patient's bull chain operator, Dr. Pineda, was consulted as well. Dr. Nicolas did communicate with me and his planning to take the patient to operating room tomorrow to control and he will try to take care of this fecal impaction problem and control situation and we will keep her n.p.o. after midnight. For diabetes, sliding scale insulin was ordered. The patient's blood sugar was running high for a while and subsequently during later part of the day today, he was running on the low side, so we gave some orange juice and that was still running low in range of 50 and 60, so we changed IV fluid from normal saline to D5 normal saline as the patient will be kept n.p.o. overnight. Pain medication, Dilaudid 0.5 mg was not helping enough as the patient's reported and after I communicated with the nursing staff, we ordered Dilaudid 0.5 mg for moderate pain and 1 mg for severe pain and hopefully this should help provide better control. For her hypertension, she takes carvedilol, we will start her on clonidine and we will give lower dose of clonidine and carvedilol per order starting tonight. For hyperlipidemia, we will not give any medication at this point until we take care of her fecal impaction problem. Hyperparathyroidism will not require any further intervention at this point. The patient takes gabapentin for her neuropathy. We will restart that and most of her other medication once we take care of her fecal impaction problem which probably will happen tomorrow and after that, we will address rest of her home medications. We will consult Social Service to assist with discharge planning including home health care and home physical therapy services. I will see her tomorrow for followup. Total time spent 85 minutes including review of last office visit record from 04/17/2024, communication with emergency room physician, review of emergency room visit record, communication with general surgeon, and performing today's evaluation and management as well as communication with the nursing staff throughout the day. MORIAH/BRIAN Voice ID: [id number]
--- NOTE | 2024-06-04 06:20 | HP ---
Date of Admission: 06/03/2024 MORIAH/MODL Voice ID: [id number] MTDD
[2024-06-04] MEDS: Levofloxacin500mg IV 500 MG/100 ML BAG IV SCH (08:41)
--- NOTE | 2024-06-04 09:07 | P.CNS ---
Date of Consult: 06/03/24 Reason for Consult: Proctitis, Stool impactation History of Present Illness: 83 y/o with multiple medical hx with chronic massey with constipation currently diagnosex with stercoral colitis unable to be ressolved with conservative and medical treatment. Perianal tenderness and she doesnt want manipulation of that area not an enema unless she is sleep under anesthesia. Allergies No Known Allergies Allergy (Verified 05/18/20 01:30) Home Medications: Cholecalciferol (Vitamin D3) [Vitamin D 1000 Iu Tab*] 1,000 unit PO DAILY 01/21/16 Aspirin 81 mg PO BEDTIME 05/18/20 Biotin 5,000 mcg PO NOON 05/18/20 Cinacalcet HCl 30 mg PO BEDTIME 05/18/20 Ubidecarenone [Co Q-10] 200 mg PO NOON 05/18/20 Ezetimibe [Zetia*] 10 mg PO NOON 07/13/22 cloNIDine HCL [Clonidine HCl] 0.3 mg PO TID 07/13/22 Insulin -Regular Human [Novolin -R*] See Protocol SQ PRN 01/18/23 Atorvastatin Calcium [Lipitor] 40 mg PO BEDTIME 30 Days tab 03/04/23 Valsartan [Diovan*] 320 mg PO DAILY tab 03/04/23 Insulin Glargine/Lixisenatide [[place] 100 Unit-33 Mcg/ml Pen] 30 units SQ [id number] 05/05/23 Linagliptin/Metformin HCl [Jentadueto Xr 5 mg-1,000 mg Tb] 1,000 mg PO NOON 05/05/23 carvediloL [Coreg*] 25 mg PO BID 08/30/23 Hydrocodone Bit/Acetaminophen [Hydrocodon-Acetaminophn 10-325] 1 each PO Q8HP PRN 01/03/24 Clopidogrel Bisulfate [Plavix] 75 mg PO DAILY 06/03/24 Folic Acid 1 mg PO DAILY 06/03/24 Furosemide [Lasix] 20 mg PO 06/03/24 Gabapentin 100 mg PO TID 06/03/24 - Past Medical/Surgical History Diabetic: Yes -: hypertension, -: diabetes-NIDDM, -: CAD, carotid artery stenosis -: hyperlipidemia -: osteoarthritis -: peripheral neuropathy -: GERD -: Diverticulosis -: lumbar spondylosis/ radiculopathy -: lumbar stenosis -: Tonsillectomy -: Right knee replacement(2013) -: anterior cervical discectomy -: L2-L5 Decompressive laminectomies & bilateral foraminotomies 02/08/16 -: left knee replacement (2014) -: abd laparotomy for colon tear -: rectal abscess I&D 2009 Psychosocial/ Personal History: Patient lives at home with her - Family History Mother Medical History: Heart disease, Hypertension Notes: already - Social History Smoking Status: Unknown if ever smoked Alcohol use: No CD- Drugs: No Caffeine use: Yes Place of Residence: Home Review of Systems Gastrointestinal: Constipation, Other (perianal pain.) Physical Examination Temp Pulse Resp BP Pulse Ox 98.3 F 57 16 180/80 H 96 06/04/24 08:00 06/04/24 08:39 06/04/24 08:00 06/04/24 08:39 06/04/24 08:00 General: Alert, In no apparent distress, Oriented x3, Cooperative HEENT: PERRLA, EOMI Neck: Supple Respiratory: Normal air movement Cardiovascular: No edema Gastrointestinal: Soft and benign, No tenderness, No rebound, No guarding Musculoskeletal: No erythema, No tenderness Integumentary: No rashes Neurological: Normal speech
[2024-06-04] MEDS ORDERED: FENTANYL CITR 100 MCG/2 ML ONE (11:39)
[2024-06-04] MEDS ORDERED: ONDANSETRON 4 MG/2 ML VIAL ONE (11:39)
[2024-06-04] MEDS ORDERED: propofoL 200 MG/20 ML VIAL IV ONE (11:39)
[2024-06-04] MEDS ORDERED: LIDOCAINE 2% MPF 5 ML VIAL ONE (11:39)
[2024-06-04] MEDS: NA CHLORIDE 0.9% 1,000 ML ONE ×2 (11:40→12:40)
[2024-06-04] MEDS: METRONIDAZOLE 500mg IVPB 500 MG/100 ML BAG IV ONE (12:14)
[2024-06-04] MEDS ORDERED: EPHEDRINE SULF 50 MG/ML VIAL ONE (12:15)
[2024-06-04] MEDS ORDERED: dexAMETHasone 4 MG/ML VIAL ONE (12:16)
--- NOTE | 2024-06-04 13:01 | P.BOP ---
Preoperative diagnosis: stercoral proctitis, fecal impactation Postoperative diagnosis: same, internal and external hemmorrhoids Primary procedure: EUA, anoscopy, rigid proctoscopy, rectal desimpactation Estimated blood loss: none Specimen: none Findings: fecal desimpactation under direct visuialization rigid proctoscopy 20cm Anesthesia: General Complications: None Transferred to: Recovery Room Condition: Good
[2024-06-04] MEDS: HYDROMORPHONE HCL 1 MG/ML INJ ONE (13:18)
[2024-06-04] MEDS: FENTANYL CITR 100 MCG/2 ML ONE (13:57)
[2024-06-04] MEDS: LABETALOL 20 MG/4ML SYRINGE IV ONE (14:12)
[2024-06-04 14:19] VITALS: O2SAT 96
--- NOTE | 2024-06-04 15:44 | OP ---
Date of Procedure: 06/04/2024 Surgeon: Kameron Nicolas MD Preoperative Diagnosis: Stercoral proctitis, fecal impaction. Postoperative Diagnoses: Stercoral proctitis, fecal impaction plus internal and external hemorrhoids . Procedures: Examination under anesthesia, anoscopy, rigid proctoscopy, rectal disimpaction under dir ect visualization. Estimated Blood Loss: None. Specimen: None. Findings: Fecal disimpaction. We proceeded to explore the area of the rectum and do the flushing an d disimpaction under direct visualization with the help of rigid proctoscopy. Patient has very large internal and external hemorrhoids. Anesthesia: General. Indications: This is a case of an 83-year-old patient who came to us with a fecal disimpaction on co [place] to chronic large hemorrhoids, very tender and she does not even tolerate the enema at bedside. S o they asked us to see if we can take a look at that area. We offered her an examination under anest hesia, anoscopy, proctoscopy, and rectal disimpaction. They understands the benefits, alternatives, and risks which include, but not limited to, infection, bleeding, damage to adjacent structures, anes thesia complication, rectal and bowel perforation, [place], and even . She also understands this may not relieve any symptoms. She might need more than one surgical intervention. She also understands that and the family that even though disimpaction in the rectum is good, we still have to work on wi th the help of the rn orthopaedic and the primary doctor at trying to take a look, resolve the re st of the stool that the patient has present in the colon that will not be addressed at this moment. She signed a consent. Description Of Procedure: Patient was brought to the operating room, placed in supine position. Ane sthesia was done without complication. The patient was placed in light Trendelenburg position with p jean carlos protection. Rectal examination was done. We have already lot of stool present and causing the hemorrhoids to be inflamed. With the help of the rigid proctoscopy, we were able to slowly advance. We used the anoscope at the beginning to take care of at least the first 4-5 cm of the rectum, but then with the help of a flushing catheter soft tip, we were able to advance that with the rigid proct oscopy slowly as we were cleaning the rectum all the way up to the end of that proctoscopy, which is about 20 cm. When we flushed about 3 L of water that we have from that area of the end of the procto scopy all the way to the rectum crystal clear with no stools present. It took significant amount of time to disimpact that area. Patient did great. At this moment, the hemorrhoids even the hemorrhoid al swelling is even coming down. No bleeding. Once again, this proctoscope was advanced under direc t visualization in the center of the lumen after insufflation to minimize any perforation of her infl jo rectum. Patient tolerated the procedure well. No bleeding. Patient sent to recovery in stable condition. CARMELINA/BRIAN Voice ID: [id number] Report ID: [id number]
[2024-06-04] MEDS: cloNIDine HCL 0.1 MG TAB PO ONE (16:46)
[2024-06-04] MEDS: ENOXAPARIN 40 MG/0.4 ML SQ SCH (17:25)
[2024-06-04] MEDS: CLOPIDOGREL 75 MG TABLET PO SCH (18:15)
[2024-06-04] MEDS: ASPIRIN EC 81 MG TAB PO SCH (18:15)
[2024-06-04 20:32] LABS: Specific Gravity 1.019 (1.005-1.030); Sqamous Epithelial <5 /HPF (None Seen); Urine Bacteria <20 /HPF (<20); Urine Bilirubin NEGATIVE (Negative); Urine Blood Negative (Negative); Urine Clarity Turbid (Clear); Urine Color Yellow (Yellow); Urine Crystals Unidentified Few /HPF (None Seen); Urine Culture Reflex Order NOT NEEDED; Urine Glucose TRACE (Negative); Urine Ketones NEGATIVE (Negative); Urine Microscopic Reflex YN ORDER UMIC; Urine Mucus Slight /HPF (None Seen); Urine Nitrite NEGATIVE (Negative); Urine Protein 2+ (Negative); Urine RBC <5 /HPF (None Seen); Urine Urobilinogen Normal (Normal)
[2024-06-04] MEDS ORDERED: CLONIDINE HCL 0.3 MG TAB PO SCH (21:00)
[2024-06-04] MEDS: carvediloL 25 MG TAB PO SCH (21:08)
[2024-06-04] MEDS: CLONIDINE HCL 0.3 MG TAB PO SCH (21:09)
[2024-06-05 06:45] LABS: Absolute Lymphocytes (CBC) 0.7 K/uL (0.7-4.9); Absolute Monocytes 0.7 K/uL (0.1-1.3); Absolute Neutrophil 7.7 K/uL (1.8-8.0); Basophils % 0.3 % (0-1.3); Hematocrit 34.4 % (36.0-45.0); Hemoglobin 11.2 g/dL (12.0-15.0); Lymphocytes % 7.6 % (15.3-44.8); MCH 29.2 pg (27.0-35.0); MCHC 32.5 g/dL (32.0-36.0); MPV 8.1 fL (7.6-11.3); Monocytes % 7.7 % (3.3-12.3); Neutrophils % 84.4 % (41.7-73.7); Platelets 353 thou/uL (152-406); RBC Red Blood Cell Count 3.82 M/uL (3.86-4.86); Red Cell Distribution Width 14.6 % (12.1-15.2)
[2024-06-05 06:58] LABS: Anion Gap 8.4 mEq/L (5.0-15.0); Magnesium 1.9 mg/dL (1.6-2.4); Potassium 4.4 mEq/L (3.5-5.1)
--- NOTE | 2024-06-05 07:38 | PN ---
Date of Progress Note: 06/04/2024 Subjective: The patient was seen this morning for followup. No new complaints or problems reported by her. Her daughter was present with her at bedside. Objective: Vital Signs: Reviewed. HEENT: Unremarkable. Lungs: Clear to auscultation. Heart: Sounds normal. Abdomen: Soft. Bowel sounds normal. No guarding, rigidity. Some mild tenderness in lower abdomen present. No distention. Extremities: No leg edema. Impression: 1.Stercoral proctitis. 2.Fecal impaction. 3.Type 2 diabetes mellitus. 4.Coronary artery disease. 5.Hypertension. Plan: We will go ahead and continue blood pressure medications per order. Monitor blood pressure as necessary. Adjust blood pressure medication. Starting tomorrow, we will restart her statin therapy that she takes at home. Continue diabetes management with insulin sliding scale and she is schedule d to have procedure done today by Dr. Nicolas for this fecal impaction problem and she will go down to operating room for this. Once that is done, then we will probably start her on long-acting insuli n along with sliding scale insulin coverage for diabetes management and probably we will restart her oral diabetes medication at that time. Aspirin and Plavix were ordered for her as she takes at home for her coronary artery disease and we will go ahead and continue clear liquid diet and starting tomorrow we will probably advance her diet. MORIAH/MODL Voice ID: [id number] Report ID: [id number]
[2024-06-05] MEDS: ACETYLCYST 20% 800 MG/4 ML VIAL PO ONE (07:49)
[2024-06-05] MEDS: METFORMIN HCL 500 MG TAB PO SCH (08:40)
[2024-06-05] MEDS: INSULIN GLARGINE 100 UNIT/ML SQ SCH (08:41)
[2024-06-05] MEDS: POLYETHYL GLY 3350 17 GM/DOSE PO SCH (08:41)
[2024-06-05] MEDS: DOCUSATE NA/SENNA CONC 1 TAB PO SCH (08:41)
[2024-06-05] MEDS: GLUCERNA SHAKE 237 ML CAN PO SCH (09:00)
[2024-06-05] MEDS: NA CHLORIDE 0.9% 1,000 ML IV SCH (12:01)
[2024-06-05] MEDS: cloNIDine HCL 0.1 MG TAB PO SCH (20:28)
[2024-06-05] MEDS: ATORVASTATIN 40 MG TAB PO SCH (20:28)
--- NOTE | 2024-06-05 22:28 | PN ---
Date of Progress Note: 06/05/2024 Subjective: The patient was seen this morning for followup. No new complaints or problems reported by patient. She was lying in bed. Yesterday, she had procedure done to disimpact her colon. This w as done under anesthesia by Dr. Nicolas in the operating room and after that her abdominal pain has improved. This morning, when I saw her, her was with her at bedside. The patient has been h aving bowel movement after this procedure. Rachel catheter is in place and has dark yellow color urin e, but there is no evidence of any blood. Objective: Vital Signs: Reviewed. HEENT: Unremarkable. Lungs: Clear to auscultation. Heart: Sounds normal. Abdomen: Soft. Bowel sounds normal. No guarding, rigidity, tenderness, distention. Extremities: No leg edema. WHEEL PRESSER: Significant generalized weakness present. Laboratory Data: WBC 9.2, hemoglobin 11.2, platelets 353, sodium 141, potassium 4.4, chloride 114, b icarb 23, BUN 27, creatinine 0.84, glucose 208, magnesium 1.9. Repeat urinalysis done last night as patient's was concerned about urinary tract infection showed leukocytes 25. Rest of the urin alysis was negative. The patient has a Rachel catheter that was placed in the emergency room. Impression: 1.Stercoral proctitis. 2.Fecal impaction. 3.Coronary artery disease. 4.Hypertension. 5.Diabetes mellitus. 6.Generalized weakness. 7.Debility. Plan: We will go ahead and continue Senokot-S 2 tablets 2 times a day and MiraLAX daily per order. The patient also had lactulose order in place since her admission, which during the course of day tod ay, I discontinued it when nurse called me with information that the patient had 4 bowel movements. She received her antihypertensive medication this morning per order and her blood pressure when nurse contacted me, systolic blood pressure around 108 or so. So, at that time, we decided to go ahead an d reduce the dose of clonidine to 0.2 mg twice a day. IV fluid was ordered this morning because her urine was dark yellow in color. There was no evidence of any blood and we will continue normal salin e at 50 cc/hour. Physical Therapy to work with the patient. Considering the patient's condition, it is not safe for her to go home because she lives at home with her and she needs a lot more c are than what can provide. The patient is not going to be able to independently transfer her self or ambulate and even with 's assistance, it will not be possible. So my recommendation w as for her to go to correction facility and the patient's understood and agreed and the patient also then finally agreed because of the concerns I have. So I have requested Social Service to assist the patient with correction facility placement and once we are able to get insurance a pproval, then we will be able to discharge her to go to the facility of the patient and her 's choice which is [facility] in [place]. Meanwhile, we will continue current antibiotics. I have started long-acting insulin Semglee 10 units subcutaneous injection daily and we will advance her diet today. I will see her tomorrow for followup. MORIAH/MODL Voice ID: [id number] Report ID: [id number]
[2024-06-06 13:23] VITALS: BP 179/77; TEMP 97.8
--- NOTE | 2024-06-07 00:56 | DS ---
Date of Discharge: 06/06/2024 Disposition: Discharged to go to [facility]. Physical Examination: HEENT: Unremarkable. Lungs: Clear to auscultation. Heart: Sounds normal. Abdomen: Soft. Bowel sounds normal. No guarding, rigidity, tenderness, distention. Extremities: No leg edema. Laboratory Data: Upon admission, white count 8.6, hemoglobin 10.8, platelets 277 and today white count 10.4, hemoglobin 10.3, platelets 275. Urinalysis normal. Upon admission, chemistry 140, potassium 4.2, chloride 107, bicarb 28, BUN 62, creatinine 1.19, glucose 80. Liver function tests normal. Lipase 47 and today sodium 140, potassium 4.4, chloride 108, bicarb 26, BUN 53, creatinine 0.95, glucose 285. Liver function tests normal. Lipase 30. Chest x-ray, no acute changes. CAT scan of the abdomen and pelvis shows presence of large amount of stool in the rectum with presence of presacral edema and fat stranding in the surrounding area. Final Diagnoses: 1. Stercoral proctitis/colitis. 2. Fecal impaction. 3. Volume depletion. 4. Coronary artery disease. 5. Hypertension. 6. Hyperlipidemia. 7. Diabetes mellitus with diabetic peripheral neuropathy. 8. Diabetes mellitus with peripheral vascular disease. 9. Chronic diastolic heart failure. 10. Osteoarthritis, multiple sites. 11. Hyperparathyroidism. 12. Gastroesophageal reflux disease. 13. Diverticulosis. 14. Depression. 15. Chronic kidney disease stage IIIA. Discharge Medications And Instructions: 1. Diet: 1800 montse ADA diet 2. Fall precautions. 3. Off load heels all the time, change position every two hours. 4. Consult PT and OT 5. FSBS ac and hs with mild sliding scale insulin. 6. Tylenol 500 mg by mouth four times a day as needed for pain. 7. Aspirin 81 mg by mouth daily with food. 8. Clopidogrel 75 mg by mouth daily with food. 9. Carvedilol 25 mg, take 1 tablet by mouth two times a day. 10. Vitamin D3, 1000 units by mouth daily. 11. Cinacalcet 30 mg by mouth daily. 12. Clonidine 0.3 mg by mouth three times a day. 13. Ezetimibe 10 mg by mouth daily. 14. Folic acid 1 mg by mouth daily. 15. Gabapentin 100 mg by mouth two times a day. 16. Tresiba insulin 20 units subcutaneous injection daily in morning. 17. Jentadueto XR 10/999 mg by mouth daily with breakfast. 18. Atorvastatin 40 mg daily at bedtime. 19. Valsartan 80 mg by mouth two times a day. 20. Senokot-S, take 2 tablets by mouth two times a day. 21. Miralax 17 gm powder mix in 8 oz water and drink it daily. 22. Levaquin 500 mg by mouth daily with food for one week. 23. Metronidazole 250 mg by mouth three times a day with food for one week. 24. Zofran 4 mg by mouth four times a day as needed for nausea. 25. Lovenox 40 mg subcutaneous injection daily for two weeks. Hospital Course: This is an 83-year-old female patient, came into emergency room with lower abdominal pain, constipation, and rectal pain. Please see dictated H and P for more information. After the patient was evaluated in the emergency room, she was admitted to the hospital. GI consultation from Dr. Pineda and General Surgery consultation from Dr. Nicolas were obtained. Dulcolax rectal suppository was ordered. Fleet enema was ordered, but the patient was not able to tolerate that because of significant pain. Dr. Nicolas took her to operating room day after admission. Under anesthesia, he did proctoscopy and performed disimpaction of large amount of stool from her rectum and sigmoid area. The patient was given empiric antibiotics to start with ever since admission, which were Levaquin and metronidazole. Her abdominal pain has resolved. She has significant generalized weakness, and it is not safe for her to go home as she lives at home with her , so it was suggested for the patient to go to residential facility. Today, after all arrangements completed, the patient was discharged to go to residential facility. DVT prophylaxis was given using Lovenox. Her blood pressure was labile during this hospitalization and it did require for us to adjust the medication. Her glucose level was also up and down depending on her oral intake, so we had to make those adjustment as well and I did talk to the patient's in great detail today that fluctuation on fingerstick blood sugar is to be expected like in the hospital because of lot of other variables, but over a period of time her medication should be adjusted the way it was before. Since her disimpaction procedure, the patient has been having multiple bowel movements. Last night, she had about 4 bowel movements and so far today 1 bowel movement as reported by nursing staff. She had a Rachel catheter that was placed upon admission and today this morning, I informed nursing staff to remove Rachel catheter and if she is not able to void, then reinsert the catheter. In that case, group home will need to work on bladder training and removal of catheter. Total time spent today 40 minutes, going over all the details with the patient's , and performing today's evaluation and management, and communication with the social service. MORIAH/BRIAN Voice ID: [id number] Report ID: [id number] BEL
== END 2024-06-06 17:37 | DRG 386 ==
LOC: ER 16:25 → ERHOLD 19:15 → 4TH 20:42
PROVIDERS: ADMIT Internal Medicine; ATTEND Internal Medicine
PROC: 0DCP8ZZ Extirpation of Matter from Rectum, Via Natural or Artificial Opening Endoscopic (ICD-10-PCS; principal; 2024-06-04 14:30)
PROC: 0T9B70Z Drainage of Bladder with Drainage Device, Via Natural or Artificial Opening (ICD-10-PCS; 2024-06-06)
DX: K51.20 Ulcerative (chronic) proctitis without complications (principal); I13.0 Hypertensive heart and chronic kidney disease with heart failure and stage 1 through stage 4 chronic kidney disease, or unspecified chronic kidney disease; K55.1 Chronic vascular disorders of intestine; I50.32 Chronic diastolic (congestive) heart failure; K64.8 Other hemorrhoids; N18.31 Chronic kidney disease, stage 3a; E11.22 Type 2 diabetes mellitus with diabetic chronic kidney disease; E11.65 Type 2 diabetes mellitus with hyperglycemia; E11.51 Type 2 diabetes mellitus with diabetic peripheral angiopathy without gangrene; E11.42 Type 2 diabetes mellitus with diabetic polyneuropathy; E11.649 Type 2 diabetes mellitus with hypoglycemia without coma; E11.40 Type 2 diabetes mellitus with diabetic neuropathy, unspecified; J45.909 Unspecified asthma, uncomplicated; E78.5 Hyperlipidemia, unspecified; K62.89 Other specified diseases of anus and rectum; F41.9 Anxiety disorder, unspecified; K59.09 Other constipation; F32.A Depression, unspecified; E21.3 Hyperparathyroidism, unspecified; M19.09 Primary osteoarthritis, other specified site; K64.4 Residual hemorrhoidal skin tags; K21.9 Gastro-esophageal reflux disease without esophagitis; I25.2 Old myocardial infarction; I25.10 Atherosclerotic heart disease of native coronary artery without angina pectoris; K57.90 Diverticulosis of intestine, part unspecified, without perforation or abscess without bleeding; R33.9 Retention of urine, unspecified; Z23 Encounter for immunization; Z79.4 Long term (current) use of insulin; Z88.1 Allergy status to other antibiotic agents; Z95.5 Presence of coronary angioplasty implant and graft; Z79.82 Long term (current) use of aspirin; Z79.02 Long term (current) use of antithrombotics/antiplatelets; Z90.49 Acquired absence of other specified parts of digestive tract; Z86.73 Personal history of transient ischemic attack (TIA), and cerebral infarction without residual deficits; Z79.899 Other long term (current) drug therapy; Z96.653 Presence of artificial knee joint, bilateral
CPT/HCPCS: 36415; 51702; 71045; 74177; 80048; 80053; 80076; 81001; 82947; 83036; 83605; 83690; 83735; 84443; 85025; 93005; 96361; 96365; 96367; 96375; 97161; 99285; J0696; J0744; J1100; J1171; J1650; J2003; J2405; J2704; J3010; J7030; J7040; J7042; J7608; Q9967

== ENCOUNTER 2024-10-11 13:09 | Observation (INO) | payer OTHER ==
[2024-10-11 14:04] LABS: Absolute Lymphocytes (CBC) 0.2 K/uL (0.7-4.9); Absolute Monocytes 0.2 K/uL (0.1-1.3); Absolute Neutrophil 8.7 K/uL (1.8-8.0); Basophils % 0.2 % (0-1.3); Eosinophils % 0.5 % (0-4.4); Hematocrit 38.6 % (36.0-45.0); Hemoglobin 12.9 g/dL (12.0-15.0); Lymphocytes % 2.6 % (15.3-44.8); MCH 28.8 pg (27.0-35.0); MCHC 33.3 g/dL (32.0-36.0); MCV 86.4 fL (80-100); MPV 9.2 fL (7.6-11.3); Monocytes % 2.2 % (3.3-12.3); Neutrophils % 94.5 % (41.7-73.7); Platelets 203 thou/uL (152-406); RBC Red Blood Cell Count 4.47 M/uL (3.86-4.86); Red Cell Distribution Width 14.9 % (12.1-15.2)
--- NOTE | 2024-10-11 14:27 | RAD REPORT ---
EXAM: Chest Single View HISTORY: 83 years Female htn COMPARISON: None. FINDINGS: LUNGS/PLEURA: The lungs are clear. No pleural effusions or pneumothorax. No pulmonary edema. CARDIAC/MEDIASTINUM: The cardiac silhouette is within normal limits. UPPER ABDOMEN: No significant abnormality. BONES: No acute abnormality. Left shoulder arthroplasty. Right proximal humerus plate and screw fixat ion. LINES/TUBES/OTHER: N/A IMPRESSION: No evidence of acute cardiopulmonary disease.
[2024-10-11 14:39] LABS: PT Prothrombin Time 12.4 SECONDS (10-13.0); PTT, Activated Partial Thromb 29.2 SECONDS (27.2-37.4); Protime INR 1.09
[2024-10-11 14:46] LABS: Albumin/Globulin Ratio 0.8 (1.1-1.8); Anion Gap 9.5 mEq/L (5.0-15.0); Bilirubin Direct 0.2 mg/dL (0-0.2); Bilirubin Indirect, Calculated 0.3 mg/dL (0.2-0.8); Bilirubin Total 0.5 mg/dL (0.2-1.0); Globulin 3.9 g/dL (2.3-3.5); Magnesium 1.9 mg/dL (1.6-2.4); Potassium 4.5 mEq/L (3.5-5.1); Protein, Total 6.9 g/dL (6.4-8.2)
[2024-10-11 15:15] LABS: Platelet Estimate ADEQ; White Blood Cell Scan OK (OK)
[2024-10-11 15:16] LABS: Blood Morphology Comment NOT SEEN (NOT SEEN)
--- NOTE | 2024-10-11 15:16 | RAD REPORT ---
EXAMINATION: Head Brain Wo Cont CLINICAL INDICATION: Female, 83 years old.DIZZINESS TECHNIQUE: Axial CT images from the skull base to the vertex without intravenous contrast. Coronal an d sagittal reformatted images were created from the data set. One or more of the following dose reduction techniques were used: Automated exposure control, adjustment of the mA and/or kV according to patient size, and/or iterative reconstruction. Unless otherwise specified, incidental findings do not require dedicated imaging follow-up. [id number]. COMPARISON: 02/17/2024 FINDINGS: INTRACRANIAL: No acute intracranial hemorrhage. No hydrocephalus. No mass effect or midline shift. 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 Mild chronic small vessel ischemic changes. VASCULATURE: No visualized abnormalities in the arteries or dural venous sinuses. SCALP/SKULL: No calvarial fracture identified. No acute soft tissue abnormality. SINUSES: The visualized paranasal sinuses are mostly clear. No significant mastoid fluid. IMPRESSION: No acute intracranial abnormality. Chronic changes as noted above.
--- NOTE | 2024-10-11 15:43 | RAD REPORT ---
EXAMINATION: Abdomen Pelvis W Contrast CLINICAL INDICATION: Female, 83 years old.ABD PAIN TECHNIQUE: CT abdomen and pelvis was performed, after the administration of IV contrast[facility]. Axial, sagittal and coronal reconstructions were obtained. One or more of the following dose reduction techniques were used: Automated exposure control, adjustment of the mA and/o r kV according to patient size, and/or iterative reconstruction. Unless otherwise specified, incidental findings do not require dedicated imaging follow-up. [id number]. COMPARISON: 06/02/2024 FINDINGS: LOWER CHEST: No acute process identified.Mild cardiomegaly. Moderate coronary artery calcifications. Pacemaker leads. UPPER GI: No significant abnormality. LIVER: Hepatic steatosis. Benign appearing and/or stable lesions are identified. No suspicious mass. GALLBLADDER/BILE DUCTS: Cholecystectomy. Mild extra-hepatic biliary ductal dilatation is likely relat ed to the post-cholecystectomy state. Consider correlating with LFT's.? PANCREAS: No mass, ductal dilation, or ofelia-pancreatic fluid. SPLEEN: Unremarkable. ADRENALS: Adrenal thickening without discrete mass. KIDNEYS AND URETERS: No hydronephrosis.Possible early excretion of contrast versus layering debris or hemorrhage at the right renal pelvis.No renal calculi.Subcentimeter renal lesions bilaterally which are statistically benign. Unchanged 11 mm intermediate attenuation left interpolar renal lesion . ABDOMINAL AORTA AND OTHER VESSELS: Moderate atherosclerotic changes without aortic aneurysm. PERITONEUM: No abnormal free fluid. No free air. LYMPH NODES: No pathologic lymphadenopathy. ABDOMINAL WALL: Unremarkable SMALL BOWEL/COLON: Small bowel has normal course and caliber. No colonic wall thickening or pericolon ic inflammatory changes.Normal appendix. Mild diverticulosis without diverticulitis. Moderate rectal stool burden. URINARY BLADDER: Underdistended but grossly unremarkable. REPRODUCTIVE ORGANS: Simple appearing right adnexal cyst measuring 2.6 cm which is unchanged since at least 06/14/2023. MUSCULOSKELETAL: Postoperative changes from posterior lumbar decompression. No acute fracture. Degene rative changes are present in the lumbar spine. ADDITIONAL FINDINGS: None. IMPRESSION: No acute findings within the abdomen or pelvis. Moderate rectal stool. Probable early excretion of contrast at the right renal pelvis versus debris or hemorrhage. Correlate urinalysis.
[2024-10-11] MEDS ORDERED: ONDANSETRON 4 MG/2 ML VIAL ONE (17:10)
[2024-10-11] MEDS ORDERED: MORPHINE 2 MG/ML SYR ONE (17:10)
[2024-10-11] MEDS ORDERED: cloNIDine HCL 0.1 MG TAB ONE ×2 (17:11→19:01)
[2024-10-11 17:44] LABS: Specific Gravity > 1.030 (1.005-1.030); Sqamous Epithelial None Seen /HPF (None Seen); Urine Bacteria None Seen /HPF (<20); Urine Bilirubin NEGATIVE (Negative); Urine Blood Negative (Negative); Urine Clarity Clear (Clear); Urine Color Light-Yellow (Yellow); Urine Culture Reflex Order NOT NEEDED; Urine Glucose NEGATIVE (Negative); Urine Ketones NEGATIVE (Negative); Urine Microscopic Reflex YN ORDER UMIC; Urine Nitrite NEGATIVE (Negative); Urine Protein 2+ (Negative); Urine RBC <5 /HPF (None Seen); Urine Urobilinogen Normal (Normal); Urine WBC <5 /HPF (<5)
--- NOTE | 2024-10-11 18:11 | EDPHYS ---
Physician Documentation [facility] Name: Kate Love Age: 83 yrs Sex: Female : 1940 Arrival Date: 10/11/2024 Time: 12:50 Bed 14 Private MD: ED Physician Alex Shipley HPI: 10/11 17:38 This 83 yrs old Female presents to ER via EMS with complaints of Nausea/Vomiting, Blood kb Pressure Problem. 17:38 Patient is a 83-year-old female who presents for malaise, hypertension and nausea and kb vomiting that started this morning. States she is at high blood pressure many times in the past but she has never had the vomiting associated with it. Denies abdominal pain, diarrhea, fever.. Historical: - Allergies: 13:13 No Known Allergies; ph - PMHx: 13:13 Asthma; cardiac stent x2; diabetes mellitus; Hyperlipidemia; Hypertension; Myocardial ph infarction; perforated rectum; Transient cerebral ischemia; - PSHx: 13:13 Cholecystectomy; laminectomy; right \T\ left knee; right and left shoulder; Stented ph artery; - Immunization history:: Adult Immunizations unknown. - Infectious Disease History:: Denies. - Social history:: Smoking status: Patient denies any tobacco usage or history of. ROS: 17:38 Constitutional: As per HPI kb Exam: 13:55 Constitutional: This is a well developed, well nourished patient who is awake, alert, kb and in no acute distress. Head/Face: Normocephalic, atraumatic. ENT: Moist Mucous membranes Cardiovascular: Regular rate Respiratory: Respirations even and unlabored. No increased work of breathing. Talking in full sentences Abdomen/GI: Soft, non-tender. No distention Skin: Warm, dry with normal turgor. Normal color. MS/ Extremity: Pulses equal, no cyanosis. Neurovascular intact. Full, normal range of motion. Neuro: Awake and alert, GCS 15, oriented to person, place, time, and situation. 13:55 ECG was reviewed by the Attending Physician. Vital Signs: 13:10 BP 167 / 70; Pulse 86; Resp 18; Temp 98.4; Pulse Ox 98% ; Weight 65.77 kg; Height 5 ft. ph 5 in. ; 14:31 BP 175 / 70; Pulse 72; Resp 18; Pulse Ox 93% on R/A; ph 15:55 BP 180 / 72; Pulse 83; Resp 18; Pulse Ox 95% on R/A; ph 17:00 BP 201 / 78; Pulse 84; Resp 18; Pulse Ox 98% on R/A; ph 18:00 BP 186 / 70; Pulse 82; Resp 18; Pulse Ox 98% on R/A; ph 18:45 BP 203 / 76; Pulse 83; Resp 18; Pulse Ox 99% on R/A; ph 19:30 BP 225 / 78; Pulse 80; Resp 18; Pulse Ox 95% ; cp4 20:30 BP 201 / 75; Pulse 83; Resp 18; Pulse Ox 95% ; cp4 13:10 Body Mass Index 24.13 (65.77 kg, 165.1 cm) ph 14:31 pt asleep ph MDM: 13:08 Medical Screening Exam initiated kb 17:38 Data reviewed: vital signs, nurses notes. Historians other than the Patient: EMS: [facility]. 17:54 Differential diagnosis: Nonspecific abd pain, viral gastroenteritis, uti, primary kb hypertension, dehydration. Consideration of Admission/Observation Patient was admitted/placed on observation. Escalation of care including admission/observation considered. Counseling: I had a detailed discussion with the patient and/or guardian regarding the historical points, exam findings, and any diagnostic results supporting the discharge/admit diagnosis, lab results, radiology results, the need for further work-up and treatment in the hospital. 18:04 Management of patient was discussed with the following: Primary Care Provider: Dr Brandi suárez accepts pt for admission for observation. . 10/11 13:09 Order name: Basic Metabolic Panel; Complete Time: 14:50 kb 10/11 13:09 Order name: CBC with Diff; Complete Time: 15:20 kb 10/11 13:09 Order name: Hepatic Function; Complete Time: 14:50 kb 10/11 13:09 Order name: Magnesium; Complete Time: 14:50 kb 10/11 13:09 Order name: Protime (+inr); Complete Time: 14:40 kb 10/11 13:09 Order name: Ptt, Activated; Complete Time: 14:40 kb 10/11 13:09 Order name: Troponin High Sensitivity; Complete Time: 14:50 kb 10/11 15:12 Order name: CBC Smear Scan; Complete Time: 15:20 EDMS 10/11 15:53 Order name: Urinalysis w/ reflexes; Complete Time: 17:44 kb 10/11 13:09 Order name: Chest Single View XRAY; Complete Time: 14:29 kb 10/11 13:09 Order name: CT Abd/Pelvis - IV Contrast Only; Complete Time: 15:53 kb 10/11 13:57 Order name: CT Head Brain wo Cont; Complete Time: 15:20 kb 10/11 13:09 Order name: Cardiac monitoring; Complete Time: 13:18 kb 10/11 13:09 Order name: EKG - Nurse/Tech; Complete Time: 14:06 kb 10/11 13:09 Order name: IV Saline Lock; Complete Time: 13:18 kb 10/11 13:09 Order name: Labs collected and sent; Complete Time: 13:44 kb 10/11 13:09 Order name: NPO; Complete Time: 13:18 kb 10/11 13:09 Order name: O2 Per Protocol; Complete Time: 13:18 kb 10/11 13:09 Order name: O2 Sat Monitoring; Complete Time: 13:18 kb 10/11 13:59 Order name: Labs - recollect needed; Complete Time: 14:17 ss 10/11 16:26 Order name: Straight Cath; Complete Time: 17:05 kb EC:55 Rate is 76 beats/min. Rhythm is regular. QRS Taft is Normal. TN interval is normal at kb 170 msec. QRS interval is normal at 80 msec. QT interval is normal at 436 msec. Administered Medications: 17:31 Drug: cloNIDine PO 0.1 mg PO once Route: PO; ph 19:16 Follow up: Response: No adverse reaction; Blood pressure is unchanged ph 17:31 Drug: morphine IVP or IV 2 mg IVP once over 4 mins Route: IVP; Infused Over: 4 mins; ph Site: left antecubital; 19:16 Follow up: Response: No adverse reaction ph 17:31 Drug: Ondansetron IVP 4 mg IVP once; over 2 minutes Route: IVP; Site: left antecubital; ph 19:16 Follow up: Response: No adverse reaction ph 19:00 Drug: cloNIDine PO 0.2 mg PO once Route: PO; ph 20:23 Follow up: Response: No adverse reaction cp4 20:23 Drug: hydrALAZINE IVP 5 mg IVP once Route: IVP; Site: left antecubital; cp4 20:56 Follow up: Response: No adverse reaction cp4 Disposition Summary: 10/11/24 18:10 Hospitalization Ordered Notes: Hospitalization Status: Observation kb Provider: Joao Paz Location: Telemetry/MedSurg (observation) kb Condition: Stable kb Problem: new kb Symptoms: are unchanged kb Bed/Room Type: Standard Room Assignment: 415(10/11/24 19:56) Diagnosis - Nausea with vomiting, unspecified kb - Weakness kb - Essential (primary) hypertension kb Forms: - Medication Reconciliation Form kb - SBAR form kb - Leadership Thank You Letter kb Addendum: 10/13/2024 09:06 Co-signature as Attending Physician, Alex Shipley MD I reviewed the patient's care r n provided by the Advanced Practice Provider and agree with the diagnosis and treatment plan. Signatures: Dispatcher [employer] EDMS Yanique Mcgill, HSPT TUTOR-C HSPT TUTOR-Ckb Alex Shipley MD MD rn Blanchard, Shelby, RN RN Jordyn Gonzalez RN RN Olena Lopez cp4 Alyssa León Corrections: (The following items were deleted from the chart) 10/11 13:09 13:09 BASIC METABOLIC PANEL+C.LAB.BRZ ordered. EDMS EDMS 13:09 13:09 CBC+H.LAB.BRZ ordered. EDMS EDMS 13:09 13:09 HEPATIC FUNCTION+C.LAB.BRZ ordered. EDMS EDMS 13: 13:09 MAGNESIUM+C.LAB.BRZ ordered. EDMS EDMS 13: 13:09 PROTIME (+INR)+COAG.LAB.BRZ ordered. EDMS EDMS 13: 13:09 PTT, ACTIVATED+COAG.LAB.BRZ ordered. EDMS EDMS 13: 13:09 Troponin High Sensitivity+C.LAB.BRZ ordered. EDMS EDMS 13:09 13:09 Chest Single View+RAD.RAD.BRZ ordered. EDMS EDMS 13: 13:09 Abdomen Pelvis W Con+CT.RAD.BRZ ordered. EDMS EDMS 15:54 15:54 Urinalysis+U.LAB.BRZ ordered. EDMS EDMS 19:56 18:10 kb hw
--- NOTE | 2024-10-11 18:11 | ER ---
Nurse's Notes [facility] Name: Kate Love Age: 83 yrs Sex: Female : 1940 Arrival Date: 10/11/2024 Time: 12:50 Bed 14 Private MD: Diagnosis: Nausea with vomiting, unspecified;Weakness;Essential (primary) hypertension Presentation: 10/11 13:10 Chief complaint: EMS states: N/V and high BP that started this morning, initial BP 220 ph systolic, gave Zofran 4mg IVP, BP ORDER MANAGER, 180/78, pt denies acute pain, reports R arm pain and back pain that is chronic. Coronavirus screen: Vaccine status: Patient reports being unvaccinated. Ebola Screen: No symptoms or risks identified at this time. Initial Sepsis Screen: Does the patient meet any 2 criteria? No. Patient's initial sepsis screen is negative. Does the patient have a suspected source of infection?. Risk Assessment: Do you want to hurt yourself or someone else? Patient reports no desire to harm self or others. Onset of symptoms was October 11, 2024. 13:10 Method Of Arrival: EMS: [facility] 13:10 Acuity: AURELIA 2 ph Triage Assessment: 13:15 General: Appears in no apparent distress. comfortable, Behavior is calm, cooperative. ph Pain: Complains of pain in back and right arm. Neuro: Level of Consciousness is awake, alert, obeys commands, Oriented to person, place, time, situation. Cardiovascular: Capillary refill < 3 seconds in bilateral fingers Patient's skin is warm and dry. Respiratory: Airway is patent Respiratory effort is even, unlabored, Respiratory pattern is regular, symmetrical. GI: Reports nausea, vomiting. : No signs and/or symptoms were reported regarding the genitourinary system. Derm: Skin is pink, warm \\T\\ dry. Musculoskeletal: Circulation, motion, and sensation intact. Range of motion: intact in all extremities. Historical: - Allergies: 13:13 No Known Allergies; ph - PMHx: 13:13 Asthma; cardiac stent x2; diabetes mellitus; Hyperlipidemia; Hypertension; Myocardial ph infarction; perforated rectum; Transient cerebral ischemia; - PSHx: 13:13 Cholecystectomy; laminectomy; right \\T\\ left knee; right and left shoulder; Stented ph artery; - Immunization history:: Adult Immunizations unknown. - Infectious Disease History:: Denies. - Social history:: Smoking status: Patient denies any tobacco usage or history of. Screenin:14 [facility] ED Fall Risk Assessment (Adult) History of falling in the last 3 months, ph including since admission No falls in past 3 months (0 pts) Confusion or Disorientation No (0 pts) Intoxicated or Sedated No (0 pts) Impaired Gait No (0 pts) Mobility Assist Device Used Yes (1 pt) Altered Elimination Yes (1 pt) Score/Fall Risk Level 0 - 2 = Low Risk Oriented to surroundings, Maintained a safe environment, Hourly rounding (assess needs \\T\\ fall precautionary measures) done. Abuse screen: Denies threats or abuse. Denies injuries from another. Nutritional screening: No deficits noted. Tuberculosis screening: No symptoms or risk factors identified. Assessment: 14:31 General: SEE TRIAGE ASSESSMENT. ph 15:26 Reassessment: Pt in CT. ph 17:00 Reassessment: Patient appears in no apparent distress at this time. Patient and/or ph family updated on plan of care and expected duration. Pain level reassessed. Patient is alert, oriented x 3, equal unlabored respirations, skin warm/dry/pink. Pt continues to c/o "feeling queasy" has not vomited, BP also elevated, states that she takes clonidine TID, ERP notified see MAR. 18:30 Reassessment: BP remains elevated, states, " That's because she takes 0.3 ph clonidine at home, one isn't going to do anything." pt denies dizziness or headache, continues to c/o queasiness, no vomiting noted. 19:16 Reassessment: Patient appears in no apparent distress at this time. Patient and/or ph family updated on plan of care and expected duration. Pain level reassessed. Patient is alert, oriented x 3, equal unlabored respirations, skin warm/dry/pink. Vital Signs: 13:10 BP 167 / 70; Pulse 86; Resp 18; Temp 98.4; Pulse Ox 98% ; Weight 65.77 kg; Height 5 ft. ph 5 in. ; 14:31 BP 175 / 70; Pulse 72; Resp 18; Pulse Ox 93% on R/A; ph 15:55 BP 180 / 72; Pulse 83; Resp 18; Pulse Ox 95% on R/A; ph 17:00 BP 201 / 78; Pulse 84; Resp 18; Pulse Ox 98% on R/A; ph 18:00 BP 186 / 70; Pulse 82; Resp 18; Pulse Ox 98% on R/A; ph 18:45 BP 203 / 76; Pulse 83; Resp 18; Pulse Ox 99% on R/A; ph 19:30 BP 225 / 78; Pulse 80; Resp 18; Pulse Ox 95% ; cp4 20:30 BP 201 / 75; Pulse 83; Resp 18; Pulse Ox 95% ; cp4 13:10 Body Mass Index 24.13 (65.77 kg, 165.1 cm) ph 14:31 pt asleep ph Vitals: 14:31 Cardiac Rhythm Assessment Regular. ph ED Course: 13:07 Patient arrived in ED. eb 13:08 Yanique Mcgill FNP-C is PHCP. kb 13:08 Alex Shipley MD is Attending Physician. kb 13:09 Jordyn Gonzalez, JENNIE is Primary Nurse. ph 13:13 Triage completed. ph 13:14 Arm band placed on Patient placed in an exam room, on a stretcher, on cardiac monitor technician, ph on pulse oximetry. 13:14 Patient has correct armband on for positive identification. Bed in low position. Call ph light in reach. Side rails up X2. Client placed on continuous cardiac and pulse oximetry monitoring. NIBP monitoring applied. manager monitoring on. Door closed. Noise minimized. Warm blanket given. 13:44 Basic Metabolic Panel Sent. ph 13:44 CBC with Diff Sent. ph 13:45 Initial lab(s) drawn, by me, sent to lab. Inserted saline lock: 22 gauge in right ph antecubital area, using aseptic technique. Blood collected. Flushed with 10 mL NS. 14:07 Warm blanket given. am7 14:07 EKG done, by ED staff, reviewed by Yanique WEATHERS. am7 14:17 Chest Single View XRAY In Process Unspecified. EDMS 14:17 Lab(s) recollected, by me, sent to lab. ss 15:09 CT Head Brain wo Cont In Process Unspecified. EDMS 15:31 CT Abd/Pelvis - IV Contrast Only In Process Unspecified. EDMS 18:10 Joao Paz MD is Hospitalizing Provider. kb 19:21 No provider procedures requiring assistance completed. Patient admitted, IV remains in ph place. 21:00 Provided Education on: admission. cp4 Administered Medications: 17:31 Drug: cloNIDine PO 0.1 mg PO once Route: PO; ph 19:16 Follow up: Response: No adverse reaction; Blood pressure is unchanged ph 17:31 Drug: morphine IVP or IV 2 mg IVP once over 4 mins Route: IVP; Infused Over: 4 mins; ph Site: left antecubital; 19:16 Follow up: Response: No adverse reaction ph 17:31 Drug: Ondansetron IVP 4 mg IVP once; over 2 minutes Route: IVP; Site: left antecubital; ph 19:16 Follow up: Response: No adverse reaction ph 19:00 Drug: cloNIDine PO 0.2 mg PO once Route: PO; ph 20:23 Follow up: Response: No adverse reaction cp4 20:23 Drug: hydrALAZINE IVP 5 mg IVP once Route: IVP; Site: left antecubital; cp4 20:56 Follow up: Response: No adverse reaction cp4 Medication: 13:16 VIS not applicable for this client. ph Outcome: 18:10 Decision to Hospitalize by Provider. kb 21:00 Admitted to Med/surg accompanied by tech, via stretcher, room 415, with chart, cp4 21:00 Condition: stable 21:00 Instructed on the need for admit, 21:00 Patient left the ED. cp4 Signatures: Dispatcher [employer] EDYanique Sampson, IESHA-C OFFICE SUPPORT ASSISTANT-Lani Castellon RN RN ss Hall, Patricia, RN RN Noa Marquez Christina cp4 Brandie Lacy am7
[2024-10-11] MEDS ORDERED: D10W 125 ML IV PRN (19:16)
[2024-10-11] MEDS ORDERED: ONDANSETRON 4 MG/2 ML VIAL IV PRN (19:16)
[2024-10-11] MEDS ORDERED: PROMETHAZINE INJ 25 MG/ML AMP IV PRN (19:16)
[2024-10-11] MEDS ORDERED: GLUCAGON 1 MG/VIAL IM PRN (19:16)
[2024-10-11] MEDS ORDERED: HYDRALAZINE HCL 20 MG/ML VIAL ONE (20:04)
[2024-10-11] MEDS: INSULIN REGULAR (HUMAN) 100 UNIT/ML SQ SCH (21:00)
[2024-10-11 21:33] VITALS: BMI 23.9
[2024-10-11 22:05] VITALS: O2SAT 95
[2024-10-11] MEDS: NA CHLORIDE 0.9% 1,000 ML IV SCH (22:09)
[2024-10-11] MEDS: cloNIDine HCL 0.1 MG TAB PO PRN (22:10)
[2024-10-12 06:10] LABS: Absolute Lymphocytes (CBC) 0.6 K/uL (0.7-4.9); Absolute Monocytes 0.5 K/uL (0.1-1.3); Absolute Neutrophil 4.6 K/uL (1.8-8.0); Basophils % 0.4 % (0-1.3); Eosinophils % 0.4 % (0-4.4); Hematocrit 31.6 % (36.0-45.0); MCH 30.1 pg (27.0-35.0); MCHC 34.8 g/dL (32.0-36.0); MCV 86.6 fL (80-100); MPV 9.3 fL (7.6-11.3); Monocytes % 8.8 % (3.3-12.3); Neutrophils % 80.4 % (41.7-73.7); Nucleated Red Blood Cells % 0.1 % (0-0); Platelets 167 thou/uL (152-406); RBC Red Blood Cell Count 3.65 M/uL (3.86-4.86); Red Cell Distribution Width 14.9 % (12.1-15.2)
[2024-10-12 06:23] LABS: Anion Gap 9.8 mEq/L (5.0-15.0); Potassium 3.8 mEq/L (3.5-5.1)
[2024-10-12] MEDS: NA CHLORIDE 0.9% 500 ML IV ONE (12:07)
[2024-10-12] MEDS: CLOPIDOGREL 75 MG TABLET PO SCH (13:12)
[2024-10-12] MEDS: GABAPENTIN 100 MG CAP PO SCH (13:55)
[2024-10-12 16:02] VITALS: BP 168/61; TEMP 98.6
--- NOTE | 2024-10-12 22:22 | SS ---
Date of Admission: 10/12/2024 Date of Discharge: 10/12/2024 Chief Complaint: Nausea, vomiting, and feeling weak. History Of Present Illness: This is an 83-year-old pleasant female patient who lives at home with her . Has provider's service at home and yesterday she came in with multiple episodes of nausea, vomiting, and upset stomach. She denies any abdominal pain. Has had chills, but no fever. Had some constipation, but no diarrhea. The patient says that her caregiver who provides assistance to her at home about 3 days ago or so was ill with similar complaints and she feels like she got whatever the caregiver had. She came into emergency room yesterday after she was evaluated. She was admitted to the hospital. Since her admission to the hospital, she has not had any episode of vomiting and her nausea has subsided after use of some medication. This morning, she is feeling better. Allergies: TO CIPRO CAUSING HALLUCINATION AND CONFUSION. Medications: List reviewed. Review of Systems: GI: As mentioned above. Constitutional: Chronic back pain. All other systems reviewed and negative. Past Medical History: Significant for osteoarthritis at multiple sites, hypertension, hyperlipidemia, coronary artery disease, diverticulosis, type 2 diabetes mellitus with diabetic neuropathy, chronic diastolic heart failure, diabetes mellitus with peripheral vascular disease, depression, chronic kidney disease stage IIIA, vitamin D deficiency, history of myocardial infarction in 2019, carotid artery stenosis, coronary artery disease, hyperparathyroidism, gastroesophageal reflux disease. Past Surgical History: Tonsillectomy, coronary artery angioplasty with stent placement x2 for STEMI in December 14, 2019, back surgery, cervical spine surgery, shoulder and knee surgery. Family History: Father , had COPD. Mother , had diabetes, heart disease. Social History: Negative for smoking. Use of alcohol, daily, 2 drinks a day. Physical Examination: Vital Signs: Height 5 feet 5 inches, weight 144 pounds, temperature 97.6, pulse 58, respiratory rate 14, blood pressure 117/60. General: Awake, alert, oriented, not in distress. HEENT: Head atraumatic, normocephalic. Conjunctivae nonerythematous. Sclerae white. Mouth, no thrush or edema noted. Ears/Nose, no mass, lesion, discharge noted. Neck: Supple. No JVD, lymph nodes, bruit, thyromegaly noted. Lungs: Bilateral good equal air entry. Clear to auscultation. No rhonchi. No rales. Heart: Normal heart sounds, no murmur or gallop. Abdomen: Soft, bowel sounds normal. No guarding, rigidity, tenderness, mass, hepatosplenomegaly, distention, or bruit noted. Extremities: No leg edema. No calf tenderness. Skin: No rash, ulcer, cellulitis. Lymphatics: No lymph node enlargement in neck, supraclavicular, infraclavicular region. Neuro: No focal neurological deficit. Chest: Unremarkable. External Genitalia: Deferred. Rectal: Deferred. Laboratory Data: Upon admission, yesterday, WBC 9.2, hemoglobin 12.9, platelets 203. Today, WBC 5.8, hemoglobin 11, platelets 167. For chemistry yesterday, sodium 140, potassium 4.5, chloride 109, bicarb 26, BUN 50, creatinine 0.92, glucose 158. Liver function tests unremarkable. This morning, sodium 139, potassium 3.8, chloride 108, bicarb 25, BUN 51, creatinine 0.98, glucose 138. Urinalysis negative. Chest x-ray: No evidence of any acute abnormality. CAT scan of abdomen and pelvis: No acute intraabdominal finding. No evidence of bowel obstruction. CAT scan of the head: No acute intracranial changes. Hospital Course: After patient was evaluated in the emergency room, she was given IV Zofran and I was contacted by emergency room provider. We also ordered Phenergan along with Zofran. IV fluid was started and clear liquid diet was ordered. The patient has tolerated clear liquid diet very well. After I saw her today, I have advanced her diet to low salt diabetic diet for lunch time and if she tolerates that very well, my plan is to discharge her to go home during later part of today. Yesterday, her blood pressure was elevated and she did receive her clonidine. This morning, blood pressure is fine and normal. Chances are very likely patient had some acute gastroenteritis with some volume depletion and she has responded well to IV fluid and symptomatic treatment. Upon discharge, the patient was instructed to continue all her previous home medications the way she was taking and use nausea medication as needed. Final Diagnoses: 1. Acute gastroenteritis. 2. Volume depletion. 3. Coronary artery disease. 4. Hypertension. 5. Hyperlipidemia. 6. Type 2 diabetes mellitus with diabetic peripheral neuropathy. 7. Type 2 diabetes mellitus with peripheral vascular disease. 8. Chronic diastolic heart failure. 9. Osteoarthritis, multiple sites. 10. Hyperparathyroidism. 11. Gastroesophageal reflux disease. 12. Diverticulosis. 13. Depression. Total time spent 70 minutes. Discharge Medications And Instructions: 1. Continue all prior home medications. 2. Zofran 4 mg take 1 tablet by mouth 4 times a day as needed for nausea and vomiting. 3. Follow up at my office for scheduled appointment. MORIAH/BRIAN Voice ID: [id number] Report ID: [id number]
--- NOTE | 2024-10-13 12:13 | EKG ---
Test Date: 2024-10-11 Test Time: 13:52:58 Residency Coordinator: AM MEASUREMENT RESULTS: Intervals: Rate: 76 WY: 170 QRSD: 80 QT: 388 QTc: 436 [place]: P: 12 WY: 170 QRS: 20 T: 39 INTERPRETIVE STATEMENTS: Normal sinus rhythm Normal ECG Compared to ECG 06/02/2024 20:19:32 Sinus bradycardia no longer present Electronically Signed On 10-13-24 12:08:34 CDT by Junior Cali
== END 2024-10-12 18:15 | disposition home health service (06) ==
LOC: ER 13:09 → ERHOLD 18:05 → 4TH 20:37
PROVIDERS: ADMIT Internal Medicine; ATTEND Internal Medicine
DX: K52.9 Noninfective gastroenteritis and colitis, unspecified (principal); R11.2 Nausea with vomiting, unspecified; R53.1 Weakness; K59.00 Constipation, unspecified; I10 Essential (primary) hypertension; E78.5 Hyperlipidemia, unspecified; I25.10 Atherosclerotic heart disease of native coronary artery without angina pectoris; M19.90 Unspecified osteoarthritis, unspecified site; I25.2 Old myocardial infarction; I50.30 Unspecified diastolic (congestive) heart failure; E11.9 Type 2 diabetes mellitus without complications; K57.90 Diverticulosis of intestine, part unspecified, without perforation or abscess without bleeding; E11.40 Type 2 diabetes mellitus with diabetic neuropathy, unspecified; E11.51 Type 2 diabetes mellitus with diabetic peripheral angiopathy without gangrene; F32.A Depression, unspecified; N18.31 Chronic kidney disease, stage 3a; K21.9 Gastro-esophageal reflux disease without esophagitis; E21.3 Hyperparathyroidism, unspecified; I65.29 Occlusion and stenosis of unspecified carotid artery; E86.9 Volume depletion, unspecified
CPT/HCPCS: 93005; 85025 ×2; 81001; 80048 ×2; 36415; 83735; 85610; 80061; 82947 ×4; 80076; 85730; 83036; 84484; 70450; 74177; 71045; 96375; 96374; 99285; Q9967; J0360; J2270; J2405; J7040; J7030 ×2; G0378 ×4